=== PATIENT | female | born 1975 | race Caucasian/White ===

== ENCOUNTER 2023-02-01 09:25 | Day surgery (SDC) | payer MEDICARE, MEDICAID, SELFPAY ==
[2023-02-01 09:52] VITALS: BP 152/91; PULSE 92; RESP 20; TEMP 37.2; O2SAT 99
[2023-02-01] MEDS: 0.9 % SODIUM CHLORIDE 500 ML IV (09:59)
[2023-02-01] MEDS: BUPIVACAINE HCL 0.25% PF 25 MG/10 ML VIAL INJ (10:45)
[2023-02-01] MEDS: LIDOCAINE HCL 2% 400 MG/20 ML MDV 15 ML INJ (10:45)
[2023-02-01] MEDS: METHYLPREDNISOLONE ACETATE 40 MG/ML VIAL INJ (10:45)
[2023-02-01 11:04] VITALS: BP 123/85; PULSE 86; RESP 16; TEMP 36.1; O2SAT 99
[2023-02-01 11:06] VITALS: BP 137/80; PULSE 82; RESP 16; TEMP 36.1; O2SAT 98
--- NOTE | 2023-02-01 13:09 | W.PM.PROCNOT ---
Date of procedure: 02/01/23 Pre-op diagnosis: Thoracic Spondylosis Post-op diagnosis: same as pre-op Procedure: Right thoracic 7/8, 9/10 Radiofrequency ablation Under fluoroscopic guidance Rhizotomy was created using radio frequency ablation at 80?C for 90 seconds 1 to 2 lesions created at each site. Post lesioning injection of 2 mL each of 0.25% Marcaine and 2% lidocaine with Depo-Medrol 40mg. 0.5 to 1 mL injected at each site IV in place yes/no If Intravenous fluids: NS at KVO Anesthesia local 2% lidocaine for Anesthesia Other: MAC Timeout process compliant After informed consent obtained.Patient brought to the procedure room placed in the prone position skin overlying the area was prepped and draped in a sterile fashion using betadine. 25 gauge needle was used to create a skin wheal over each of the targeted areas utilizing 2% lidocaine. A rhizotomy needle with a 10 mm active tip was inserted over each of the anesthetized areas and directed towards each of the medial branches accomplished under fluoroscopic guidance. after encountering the same we had positive sensory stimulation, negative motor stimulation was noted. lesions were then created. Post lesioning, steroid solution was injected needles removed. Patient was transferred to recovery room in stable condition to be discharged home after meeting criteria. Anesthesia: MAC and Local Surgeon: Lorrie Murphy Condition: stable
== END 2023-02-01 11:23 | disposition home or self-care (01) ==
LOC: SURGOUT 09:26
PROVIDERS: PCP Family Medicine; Visit Provider Anesthesiology Pain Medicine
DX: M47.814 Spondylosis without myelopathy or radiculopathy, thoracic region (principal)
CPT/HCPCS: 64633; 64634; J1030; J2704

== ENCOUNTER 2023-02-15 11:07 | Day surgery (SDC) | payer MEDICARE, MEDICAID, SELFPAY ==
[2023-02-15 11:43] VITALS: BP 151/94; PULSE 87; RESP 16; TEMP 36.8; O2SAT 99
[2023-02-15] MEDS: 0.9 % SODIUM CHLORIDE 500 ML 50 ML IV (11:55)
[2023-02-15] MEDS: LIDOCAINE HCL 2% 400 MG/20 ML MDV 15 ML INJ (12:41)
[2023-02-15] MEDS: BUPIVACAINE HCL 0.25% PF 25 MG/10 ML VIAL INJ (12:41)
[2023-02-15] MEDS: METHYLPREDNISOLONE ACETATE 40 MG/ML VIAL INJ (12:42)
[2023-02-15 12:52] VITALS: BP 128/73; PULSE 80; RESP 17; TEMP 36.4; O2SAT 99
--- NOTE | 2023-02-15 12:52 | W.PM.PROCNOT ---
Date of procedure: 02/15/23 Pre-op diagnosis: Thoracic Spondylosis Post-op diagnosis: same as pre-op Procedure: Left Thoracic 7,8 and 9,10 Radiofrequency ablation Under fluoroscopic guidance Rhizotomy was created using radio frequency ablation at 80?C for 90 seconds 1 to 2 lesions created at each site. Post lesioning injection of 2 mL each of 0.25% Marcaine and 2% lidocaine with Depo-Medrol 40mg. 0.5 to 1 mL injected at each site IV in place yes If Intravenous fluids: NS at KVO Anesthesia local 2% lidocaine for Anesthesia Other: MAC Timeout process compliant After informed consent obtained.Patient brought to the procedure room placed in the prone position skin overlying the area was prepped and draped in a sterile fashion using betadine. 25 gauge needle was used to create a skin wheal over each of the targeted areas utilizing 2% lidocaine. A rhizotomy needle with a 10 mm active tip was inserted over each of the anesthetized areas and directed towards each of the medial branches accomplished under fluoroscopic guidance. after encountering the same we had positive sensory stimulation, negative motor stimulation was noted. lesions were then created. Post lesioning, steroid solution was injected needles removed. Patient was transferred to recovery room in stable condition to be discharged home after meeting criteria. Anesthesia: MAC Surgeon: Lorrie Murphy Condition: stable
[2023-02-15 12:55] VITALS: BP 125/79; PULSE 81; RESP 16; TEMP 36.4; O2SAT 99
== END 2023-02-15 13:17 | disposition home or self-care (01) ==
LOC: SURGOUT 11:08
PROVIDERS: PCP Family Medicine; Visit Provider Anesthesiology Pain Medicine
DX: M47.814 Spondylosis without myelopathy or radiculopathy, thoracic region (principal)
CPT/HCPCS: 64633; 64634; J1030; J2704

== ENCOUNTER 2023-03-09 13:13 | Outpatient (OUT) | payer MEDICARE, MEDICAID, SELFPAY ==
--- NOTE | 2023-03-09 13:47 | P.CN_ITS ---
Consult Note: HPI Data of Consult Requesting Physician: Brielle Dominguez NP Primary Care Provider: Non-Staff Physician, MD Consult Narrative Reason for consult: f/u Narrative: Lupe Pickard a pleasant 47 year old female presents for evaluation and management of chronic back pain. Patient recently underwent right and left T7-8 T9-10 RFA with 50% pain relief and functional improvement. Patient continues to have back pain and pressure, no numbness tingling or weakness. Patient recently started on lexapro through psychiatrist. Patient has been taking baclofen 10mg bid prn without relief. cc:: CC: Brielle Dominguez NP Review of Systems ROS Status of ROS 10 or more systems reviewed and unremarkable except as noted in history and below Musculoskeletal Reports: back pain PFSH PFSH Medical History Constipation ?K59.00 - Constipation, unspecified (ICD-10) Fibromyalgia ?M79.7 - Fibromyalgia (ICD-10) IBS (irritable bowel syndrome) ?K58.9 - Irritable bowel syndrome without diarrhea (ICD-10) Osteoarthritis ?M19.90 - Unspecified osteoarthritis, unspecified site (ICD-10) Surgical History History of hysterectomy ?Z90.710 - Acquired absence of both cervix and uterus (ICD-10) History of thyroidectomy ?E89.0 - Postprocedural hypothyroidism (ICD-10) Meds Home Medications and Allergies Home Medications Medication Instructions Recorded Confirmed Type cholecalciferol (vitamin D3) 50 50 mcg PO DAILY 12/30/22 02/15/23 History mcg (2,000 unit) capsule (Vitamin D3) levothyroxine 112 mcg tablet 112 mcg PO DAILY 12/30/22 02/15/23 History liothyronine 5 mcg tablet 10 mcg PO DAILY 12/30/22 02/15/23 History lubiprostone 24 mcg capsule 24 mcg PO DAILY 12/30/22 02/15/23 History magnesium oxide 400 mg (241.3 mg 400 mg PO DAILY 12/30/22 02/15/23 History magnesium) tablet melatonin 10 mg tablet 10 mg PO DAILY 12/30/22 02/15/23 History multivitamin (Daily Multi-Vitamin 1 tab PO DAILY 08/03/23 09/19/23 History tablet) diltiazem HCl 180 mg 240 mg PO Q24H 02/01/23 02/15/23 History capsule,extended release 24 hr hydrocodone 5 mg-acetaminophen 325 1 tab PO BID PRN pain #60 tabs 03/09/23 Rx mg tablet methocarbamol 500 mg tablet 500 mg PO BID #60 tabs 03/09/23 Rx Allergies Allergy/AdvReac Type Severity Reaction Status Date / Time No Known Drug Allergies Allergy Verified 02/15/23 11:50 Exam Constitutional Documenting provider has reviewed patient's vital signs: yes Common normals: no apparent distress, oriented x3, healthy appearing, alert and well nourished General appearance: cooperative HENMT Common normals: normocephalic, hearing grossly normal bilaterally and moist oral mucous membranes Head and scalp: normocephalic Eye Common normals: PERRL Pupil: PERRL Neck & C-Spine Common normals: full ROM General: normal visual inspection Chest Common normals: inspection of chest normal Respiratory Common normals: normal respiratory effort, no retractions and no use of accessory muscles Back & Pelvis Thoracic spine/upper back: ROM limited, pain with ROM and paraspinal muscle tenderness Lumbar spine/lower back: ROM limited, pain with ROM, paraspinal muscle tendern ess and straight leg raise negative bilaterally Extremity Common normals: normal to inspection and full ROM Neuro Common normals: oriented x3, CN's II-XII intact bilaterally, moves all extremities, no focal motor deficits, no sensory deficits noted and deep tendon reflexes 2+ bilaterally Sensorium/orientation: alert Motor exam: strength 5/5 throughout and no movement abnormalities noted Psych Common normals: mental status grossly normal, thought process normal, cooperative, affect normal, speech normal and activity/motor behavior normal Speech: normal speech Thought process: normal thought process Assessment and Plan Assessment and Plan (1) Thoracic spondylosis: Assessment and Plan: right and left T 7-8 T9-10 RFA 50% pain relief and functional improvement ongoing (2) Muscle spasm: (3) Chronic, continuous use of opioids: Assessment and Plan: I feel these medications are improving the patient's quality of life and allow them to tolerate activities of daily living as well as participate in recreational activity.? The patient does not report intolerable side effects. The patient is NOT opioid naive and non-pharmacologic and non-opioid treatment has failed to significantly relieve the patient's pain and improve functionality. The patient has a diagnosis that is related to a somatic or visceral pain etiology. ? ?? I reviewed with the patient the potential risks and side effects with the use of? opioid medications including but not limited to respiratory depression,? sedation, and even . I verified the patient has access to naloxone should? these effects occur. I advised the patient to avoid the use of any other? sedation substances including alcohol, THC, and benzodiazepines while? taking opioid medications due to the risk of compounding side effects and? detrimental outcomes. I reviewed the CLINICAL EXERCISE SPECIALIST, pain treatment agreement, urine? drug screen, and opioid start talking forms. The patient was advised to let? their family know they had Naloxone in case they would need to administer? the medication.? Plan stop tramadol start hydrocodone-acetaminophen 5mg BID PRN naloxone discussed and prescribed stop baclofen start robaxin 500mg BID muscle spasms continue f/u with psychiatrist for anxiety f/u 1 month
== END 2023-03-09 13:14 | disposition home or self-care (01) ==
LOC: PM 13:13
PROVIDERS: Visit Provider Nurse Practitioner
DX: M47.816 Spondylosis without myelopathy or radiculopathy, lumbar region (principal); M62.838 Other muscle spasm; Z79.899 Other long term (current) drug therapy
CPT/HCPCS: G0463

== ENCOUNTER 2023-04-06 13:16 | Outpatient (OUT) | payer MEDICARE, MEDICAID, SELFPAY ==
--- NOTE | 2023-04-06 13:52 | P.CN_ITS ---
Consult Note: HPI Data of Consult Patient: known to practice within the last 3 years Requesting Physician: Brielle Dominguez NP Primary Care Provider: Non-Staff Physician, MD Consult Narrative Reason for consult: f/u Narrative: Lupe Pickard a pleasant 47 year old female presents for evaluation and management of mid back pain, today rating pain 4/10. Patient reports continued improvement in pain after thermal RFA, now would say 75% pain relief still worse on the right side with pain and spasming. patient has benefitted from norco 5/325 BID PRN for moderate to severe pain, responds well to baclofen 10mg BID PRN muscle spasms. cc:: CC: Brielle Dominguez NP Review of Systems ROS Status of ROS 10 or more systems reviewed and unremarkable except as noted in history and below Musculoskeletal Reports: back pain PFSH PFSH Medical History Constipation ?K59.00 - Constipation, unspecified (ICD-10) Fibromyalgia ?M79.7 - Fibromyalgia (ICD-10) IBS (irritable bowel syndrome) ?K58.9 - Irritable bowel syndrome without diarrhea (ICD-10) Osteoarthritis ?M19.90 - Unspecified osteoarthritis, unspecified site (ICD-10) Surgical History History of hysterectomy ?Z90.710 - Acquired absence of both cervix and uterus (ICD-10) History of thyroidectomy ?E89.0 - Postprocedural hypothyroidism (ICD-10) Meds Home Medications and Allergies Home Medications Medication Instructions Recorded Confirmed Type cholecalciferol (vitamin D3) 50 50 mcg PO DAILY 12/30/22 02/15/23 History mcg (2,000 unit) capsule (Vitamin D3) levothyroxine 112 mcg tablet 112 mcg PO DAILY 12/30/22 02/15/23 History liothyronine 5 mcg tablet 10 mcg PO DAILY 12/30/22 02/15/23 History lubiprostone 24 mcg capsule 24 mcg PO DAILY 12/30/22 02/15/23 History magnesium oxide 400 mg (241.3 mg 400 mg PO DAILY 12/30/22 02/15/23 History magnesium) tablet melatonin 10 mg tablet 10 mg PO DAILY 12/30/22 02/15/23 History multivitamin (Daily Multi-Vitamin 1 tab PO DAILY 12/30/22 02/15/23 History tablet) diltiazem HCl 180 mg 240 mg PO Q24H 02/01/23 02/15/23 History capsule,extended release 24 hr hydrocodone 5 mg-acetaminophen 325 1 tab PO BID PRN pain #60 tabs 03/09/23 Rx mg tablet methocarbamol 500 mg tablet 500 mg PO BID #60 tabs 03/09/23 Rx Allergies Allergy/AdvReac Type Severity Reaction Status Date / Time No Known Drug Allergies Allergy Verified 02/15/23 11:50 Exam Constitutional Documenting provider has reviewed patient's vital signs: yes Common normals: no apparent distress, oriented x3, healthy appearing, alert and well nourished General appearance: cooperative Nutritional appearance: overweight HENMT Common normals: normocephalic, hearing grossly normal bilaterally and moist oral mucous membranes Head and scalp: normocephalic Eye Common normals: PERRL Pupil: PERRL Neck & C-Spine Common normals: full ROM General: normal visual inspection Chest Common normals: inspection of chest normal Respiratory Common normals: normal respiratory effort, no retractions and no use of accessory muscles Back & Pelvis Thoracic spine/upper back: ROM limited, pain with ROM and paraspinal muscle tenderness Lumbar spine/lower back: ROM limited, pain with ROM, paraspinal muscle tenderness and straight leg raise negative bilaterally Extremity Common normals: normal to inspection and full ROM Neuro Common normals: oriented x3, CN's II-XII intact bilaterally, moves all extremities, no focal motor deficits, no sensory deficits noted and deep tendon reflexes 2+ bilaterally Sensorium/orientation: alert Motor exam: strength 5/5 throughout and no movement abnormalities noted Psych Common normals: mental status grossly normal, thought process normal, cooperative, affect normal, speech normal and activity/motor behavior normal Speech: normal speech Thought process: normal thought process Results Additional Findings Additional findings: I have checked an [place] report on this patient today and there are no aberrancies noted in the prescribing history.?? A drug screen was completed and reviewed within the last year, and if there has not been a drug screen completed we ordered one today to monitor higher risk, state monitored pain medication use. As part of providing excellent, safe, comprehensive care, the following was completed at our patient's visit: 1. A medication reconciliation and review to ensure accurate knowledge of current/active medications, including asking our patients to inform us about any [id number] medications or herbal remedies/nutritional supplements/alternative remedies. 2. A review to specifically ensure our patients have had annual screening for: elevated body mass index (BMI), tobacco use, screening for depression, and screening for unhealthy alcohol use. When screening is concerning, patients are provided with education and the specific recommendation to discuss the concerning health issue and treatment options with their primary care provider. Assessment and Plan Assessment and Plan (1) Thoracic spondylosis: (2) Muscle spasm: (3) Chronic, continuous use of opioids: Assessment and Plan: I have refilled the patient's opioid prescriptions at the above noted dose and schedule.? I feel these medications are improving the patient's quality of life and allow them to tolerate activities of daily living as well as participate in recreational activity.? The patient does not report intolerable side effects. The patient is NOT opioid naive and non-pharmacologic and non-opioid treatment has failed to significantly relieve the patient's pain and improve functionality. The patient has a diagnosis that is related to a somatic or visceral pain etiology. ? ?? I reviewed with the patient the potential risks and side effects with the use of? opioid medications including but not limited to respiratory depression,? sedation, and even . I verified the patient has access to naloxone should? these effects occur. I advised the patient to avoid the use of any other? sedation substances including alcohol, THC, and benzodiazepines while? taking opioid medications due to the risk of compounding side effects and? detrimental outcomes. I reviewed the [employer]COMING [employer]PECTOR, pain treatment agreement, urine? drug screen, and opioid start talking forms. The patient was advised to let? their family know they had Naloxone in case they would need to administer? the medication.? ?? A drug screen was completed within the last year, and no aberrancies were noted regarding their use of controlled substances. The patient understands they are subject to the terms and conditions of the pain contract that they have signed. ? ?? I have checked an [place] report on this patient today and there are no aberrancies noted in the prescribing history.? (4) Obesity: Assessment and Plan: The patient was counseled that proper dietary changes and consistent participation in a home exercise plan can lead to weight loss. Weight loss can help to improve functionality in patients with chronic pain.? Plan patient now reporting therapeutic thermal ablataion to thoracic spine has helped with 75% of her pain. Would like to decrease muscle relaxant use and opiod use. Stop robaxin, continue baclofen 10mg BID PRN Muscle spasms to wean as tolerated continue norco 5-325mg bid prn moderate to severe pain, fill 60 tablets per month this time then decrease each fill by 5 tablets, can wean off sooner if patient is tolerating well f/u 3 months
--- OUTSIDE RECORDS SUMMARY | 2023-05-17 15:17 | XMS_ITS | CCD ---
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 Name Role Phone Donya Billings Primary Care Provider [phone] Oscar Reed Unavailable DO Donya Billings Primary Care Provider MARCELLUS Marr Attending Provider [phone] MD Phillip Benjamin Attending Provider DO Steve Coronel Emergency Provider [phone] Oliver Mario Unavailable Donya Billings Unavailable Unavailable Unavailable Unavailable Unavailable DO Donya Billings Primary Care Provider MD Phillip Benjamin Attending Provider DO Steve Coronel Emergency Provider MD Kenyetta Dove Attending Provider Unavailable Primary Care Provider Unavailabl DO Donya Mejia Primary Care Provider Javad Leach Attending Provider [phone] PROVIDER, UNKNOWN Admitting Unavailable PROVIDER, UNKNOWN Attending Unavailable JAVAD LEACH Referring Unavailable PROVIDER, UNKNOWN Admitting Unavailable PROVIDER, UNKNOWN Attending Unavailable ERNIE ROPER Referring Unavailable ANNALEE ., DR ZHANE Ashraf Admitting Unavailable ANNALEE ., DR ZHANE Ashraf Attending Unavailable AWA, DR DONYA Ashraf Primary Care Unavailable ANNALEE Champion, DR ZHANE Ashraf Consulting Unavailable HERIBERTO GONSALES Consulting Unavailable ANNALEE ., DR ZHANE Ashraf Admitting Unavailable ANNALEE Champion, DR ZHANE Ashraf Attending Unavailable AWA, DR DONYA Ashraf Primary Care Unavailable MARR ., BHAVNA Consulting Unavailable MANTILLA ., DR ZHANE Ashraf Admitting Unavailable MANTILLA ., DR ZHANE Ashraf Attending Unavailable AWA, DR DONYA Ashraf Primary Care Unavailable MANTILLA ., DR ZHANE Ashraf Consulting Unavailable TERRISHEYLA Consulting Unavailable MANTILLA ., DR ZHANE Ashraf Admitting Unavailable MANTILLA ., DR ZHANE Ashraf Attending Unavailable AWA, DR DONYA Ashraf Primary Care Unavailable MANTILLA ., DR ZHANE Ashraf Consulting Unavailable MARR ., BHAVNA Consulting Unavailable MANTILLA ., DR ZHANE Ashraf Admitting Unavailable MANTILLA ., DR ZHANE Ashraf Attending Unavailable AWA, DR DONYA Ashraf Primary Care Unavailable MARR ., BHAVNA Consulting Unavailable MANTILLA ., DR ZHANE Ashraf Admitting Unavailable MANTILLA ., DR ZHANE Ashraf Attending Unavailable AWA, DR DONYA Ashraf Primary Care Unavailable MARR ., BHAVNA Consulting Unavailable AWA, DR DONYA Ashraf Primary Care Unavailable HALKER ., EMERITA Admitting Unavailable HALKER ., EMERITA Attending Unavailable HALKER ., EMERITA Consulting Unavailable MANTILLA ., DR ZHANE Ashraf Admitting Unavailable MANTILLA ., DR ZHANE Ashraf Attending Unavailable AWA, DR DONYA Ashraf Primary Care Unavailable MARR ., BHAVNA Consulting Unavailable Awa, Dr. Donya Wray [facility] Benjamin, Dr. Koehler Attending Unavaila ble Awa, Dr. Donya Wray [facility] Reynatnprasanth Benjamin, Dr. Koehler Attending Unavaila ble Lavonne, Dr. Koehler Attending Unavaila ble Awa, Dr. Doyna Wray [facility] Gaurav Benjamin, Dr. Koehler Referring Unavaila ble Lavonne, Dr. Koehler Referring Unavaila ble Awa, Dr. Donya Wray [facility] Gaurav Benjamin, Dr. Koehler Attending Unavaila ble Awa, Dr. Donya Wray [facility] Gaurav Benjamin, Dr. Koehler Referring Unavaila ble Awa, Dr. Donya Wray [facility] Gaurav Benjamin, Dr. Koehler Attending Unavaila ble Awa, Dr. Donya Wray [facility] Gaurav Benjamin, Dr. Koehler Attending Unavaila ble TrabDr. Phillip banerjee Referring Unavaila ble DO Awa Donya S Primary Care Provider DO Yogi Mcgraw Emergency Provider Gaurav simeon NO FAMILY, PHYSICIAN Primary Care Provider UnaBHAVIN Sheriff Emergency Provider MD Amanda Montiel Attending Provider Samantha AVALOS, DO Diony Arias Primary Care Provider DO Mariya Kumari Emergency Provider MD Franklyn Madera Attending Provider [phone] MD Phillip Benjamin Other Provider [phone] Beny Alvarez Unavailable [phone] DO Yogi Mcgraw Emergency Provider Unavai MD Kenyetta Tong Attending Provider Samantha AVALOS, DO Diony Arias Other Provider MARCELLUS Mcintosh Attending Provider [phone] NO FAMILY, PHYSICIAN Primary Care Provider UnaMD Beny Lara Attending Provider MAXIMILIANO Aguirre Other Provider Steve Coronel Attending Unavailable Steve Coronel Admitting Unavailable Awa, Donya S Primary Care Unavailable Awa, Donya S Primary Care Unavailable Magalys Carlos Attending Unavailable Magalys Carlos Admitting Unavailable Awa, Donya S Primary Care Unavailable Yogi Mcgraw Admitting Unavailable Yogi Mcgraw Attending Unavailable Josué Napier Attending Unavailable Josué Napier Admitting Unavailable NO FAMILY, PHYSICIAN Primary Care Unavailable Croshayy AVALOS, Diony Arias Primary Care Unavailable Franklyn Madera Attending Unavailable Franklyn Madera Admitting Unavailable Phillip Benjamin Consulting Unavailable Kenyetta Dove Attending Unavailable Kenyetta Dove Admitting Unavailable Cromley II, Diony Arias Primary Care Unavailable Cromley BAILEY, Diony Arias Primary Care Unavailable Cromlrubin AVALOS, Diony Arias Consulting Unavailable Radha Mcintosh Attending Unavailable Radha Mcintosh Admitting Unavailable Awa, Donya S Primary Care Unavailable Bhavna Marr Attending Unavailable Bhavna Marr Admitting Unavailable Phillip Benjamin Admitting Unavailable Phillip Benjamin Attending Unavailable Donya Billings Primary Care Unavailable Donya Billings Primary Care Unavailable DerrellKenyetta joseph Admitting Unavailable DerrellNaveed josephd Attending Unavailable Donya Billings Primary Care Unavailable Javad Leach Attending Unavailable Javad Leach Admitting Unavailable Mariya Kumari Attending Unavailable Cromlrubin AVALOS, Diony Arias Primary Care Unavailable Mariya Kumari F Admitting Unavailable Amanda Montiel Attending Unavailable NO FAMILY, PHYSICIAN Primary Care Unavailable Amanda Montiel Admitting Unavailable Samantha AVALOS, Diony Arias Primary Care Unavailable Becky Aguirre Consulting Unavail able Beny Alvarez Admitting UnavailBeny Mahajan Attending Unavailabl e Samantha AVALOS, Diony Arias Primary Care Unavailable Yogi Mcgraw Attending Unavailable Yogi Mcgraw Admitting Unavailable STANG, WELDER GUN Roula L Admitting Unavailable STANG, Roula L Attending Unavailable Christiano Solis Attending Unavailable DO Diony Singh Referring Unavailable WilliamsonKilo mehta Attending Unavailable Donya BILLINGS Attending Unavailable DO Diony Singh Attending Unavailable AnastasiamleyDO Diony Attending Unavailable CromleyDO Diony Attending Unavailable STANG, Roula L Admitting Unavailable STANG, Roula L Attending Unavailable NONE, XXXX Referring Unavailable STANG, Roula L Admitting Unavailable STANG, Roula L Attending Unavailable Franklyn MADERA Attending Unavailable Franklyn MADERA Admitting Unavailable DO Diony Singh Referring Unavailable NONE, XXXX Referring Unavailable STANG, Roula L Admitting Unavailable STANG, Roula L Attending Unavailable Franklyn MADERA Attending Unavailable Franklyn MADERA Admitting Unavailable NONE, XXXX Referring Unavailable STANG, Roula L Admitting Unavailable NONE, XXXX Referring Unavailable STANG, Roula L Attending Unavailable Donya OZUNA Referring Unavailable Donya OZUNA Attending Unavailable Donya OZUNA Admitting Unavailable BECKY AGUIRRE Attending Unavailabl e Donya BILLINGS Attending Unavailable DO Diony Singh Attending Unavailable TAVO HARRIS Attending Unavailable Donya BILLINGS Attending Unavailable Donya BILLINGS Attending Unavailable Jorge OCONNOR Attending Unavailable Donya OZUNA Referring Unavailable BHAVIN TREJO Attending UnavailDonya Bates Attending Unavailable Roula SAEED Admitting Unavailable Roula SAEED Referring Unavailable Roula SAEED Attending Unavailable Allergies Allergy Classification Reported Allergen(s) Allergy Type Date of Onset Reaction(s) Facility (1 source) Latex; Translations: [Latex] Propensity to adverse reactions (disorder) 7 [facility] (1 source) venlafaxine; Translations: [Effexor] Drug Allergy [facility] Medications Current Medications Medication Drug Class(es) Dates Sig (Normalized) Sig (Original) acetaminophen 500 mg oral tablet (9 sources) Start: 09-20-2022 take 1000 mg by mouth twice daily Acetaminophen Active 1000 MG PO Twice daily September 20, 2022 12:00am Start: 09-20-2022 Acetaminophen (Tylenol Ex Str Rapid Release) 500 mg Tablet Active 1000 MG PO Twice daily September 20, 2022 12:00am Tylenol bid Acti ve acetaminophen 325 mg / HYDROcodone bitartrate 5 mg oral tablet (2 sources) Opioid Agonist Start: 03-29-2023 take 1 tablet by mouth twice daily Hydrocodone-Acetaminophen Active 1 TAB PO Twice daily March 29, 2023 12:00am [place] Active [id number] 200 actuat albuterol 0.09 mg/actuat metered dose inhaler (1 source) beta2-Adrenergic Agonist Start: 04-28-2022 take 2 puff(s) by inhalation every four hours as needed Albuterol Sulfate HFA 108 (90 Base) MCG/ACT 2 puffs as needed Inhalation every 4 hrs Mar, Active Aspir-81 (2 sources) Aspir-81 Active aspirin 81 mg chewable tablet (1 source) Platelet Aggregation Inhibitor, Nonsteroidal Anti-inflammatory Drug Start: 03-29-2023 take 81 mg by mouth once daily Aspirin Active 81 MG PO Daily March 29, 2023 12:00am baclofen 10 mg oral tablet (20 sources) gamma-Aminobutyric Acid-ergic Agonist Start: 09-20-2022 take 10 mg by mouth once daily Baclofen Active 10 MG PO Daily September 20, 2022 12:00am Start: 09-23-2021 take 1 tablet by christina th twice daily Baclofen 10 MG Oral Tablet TAKE 1 TABLET TWICE DAILY. Quantity: 0 Refills: 0 Ordered: 23-Sep-2021 DO Start : 23-Sep-2021 Active Start: 09-23-2021 take 1 tablet by christina th once daily at bedtime Baclofen 20 MG Oral Tablet TAKE 1 TABLET BY MOUTH EVERYDAY AT BEDTIME Quantity: 90 Refills: 0 Ordered: 23-Sep-2021 DO Start : 23-Sep-2021 Active Baclofen Active benzonatate 100 mg oral capsule (1 source) Non-narcotic Antitussive Start: 04-28-2022 take 1 capsule by mouth every eight hours Benzonatate 100 MG 1 capsule as needed Orally Three times a day for 10 days Mar, Active busPIRone hydrochloride 5 mg oral tablet (3 sources) take 1 tablet by mouth every twelve hours busPIRone HCl 5 MG 1 tablet Orally Twice a day Active Calcium (10 sources) Phosphate Binder, Calcium CALCIUM ORAL Calcium + D Active 0 Active Calcium + D Acti ve calcium carbonate 1250 mg / cholecalciferol 200 unt oral tablet (5 sources) Vitamin D Start: 07-18-2018 take 1 tablet by mouth twice daily Calcium Carbonate-Vitamin D3 (Os-Nirmal 500 + D3) 500 mg(1,250mg) -200 unit tablet Active 1 TAB PO Twice daily July 18, 2018 1:00am cholecalciferol 0.05 mg oral capsule (20 sources) Vitamin D Start: 08-13-2022 Cholecalcifero l (vitamin D3) 50 MCG (2000 UT) CAPS capsule Take by mouth daily. 0 08/13/2022 Active Start: 07-18-2018 take 09693 [IU] by m outh every week Cholecalciferol (Vitamin D3) Active 30626 UNIT PO every week July 18, 2018 1:00am take 1 capsule by mo uth once daily Vitamin D3 1.25 MG (16115 UT) Oral Capsule TAKE 1 CAPSULE Daily Quantity: 0 Refills: 0 Ordered: 28-Jul-2022 DO Active 24 hr dilTIAZem hydrochloride 240 mg extended release oral capsule (3 sources) Calcium Channel Shorty Start: 03-29-2023 take 240 mg by mouth once daily Diltiazem Hcl Active 240 MG PO Daily March 29, 2023 12:00am dilTIAZem HCl 24 0mg Active escitalopram 5 mg oral tablet (2 sources) Serotonin Reuptake Inhibitor Start: 03-29-2023 take 1 tablet by mouth once daily Escitalopram Oxalate (Lexapro) 5 mg Tablet Active 5 MG PO Daily March 29, 2023 12:00am take 1 tablet by christina th every twenty-four hours Lexapro 5 MG 1 tablet Orally Once a day Active fluconazole 100 mg oral tablet (4 sources) Azole Antifungal Start: 08-10-2022 take 1 tablet by mouth once daily fluconazole (DIFLUCAN) 100 MG tablet Take 100 mg by mouth daily. for 10 days 0 08/10/2022 Active linaclotide 0.145 mg oral capsule (8 sources) Guanylate Cyclase-C Agonist Start: 06-15-2022 Linzess 145 MCG 1 capsule at least 30 minutes before the first meal of the day on an empty stomach Orally Once a day for 30 day(s) May, Active take 1 capsule by mouth once syed ly Linzess 145 MCG Oral Capsule TAKE 1 CAPSULE Daily Quantity: 0 Refills: 0 Ordered: 28-Jul-2022 DO Active liothyronine sodium 0.005 mg oral tablet (20 sources) l-Triiodothyronine Start: 09-20-2022 take 10 mg by mouth once daily Liothyronine Active 10 MCG PO Daily September 20, 2022 12:00am takes 10mg daily Start: 11-26-2021 take 1 tablet by christina th twice daily Liothyronine Sodium 5 MCG Oral Tablet take 1 tablet by mouth twice a day Quantity: 0 Refills: 0 Ordered: 14-Apr-2022 DO Start : 26-Nov-2021 Active take 1 tablet by christina th every twenty-four hours Liothyronine Sodium 50 MCG 1 tablet on an empty stomach Orally Once a day Active lubiprostone (12 sources) Chloride Channel Activator Start: 09-20-2022 take 24 ug by mouth once daily Lubiprostone Active 24 MCG PO Daily September 20, 2022 12:00am Start: 09-01-2022 take 1 capsule by mo [facility] twice daily at mealtime Lubiprostone 24 MCG 1 capsule with food and water Orally Twice a day for 30 days Aug, Active take 1 capsule by mo [facility] once daily at mealtime Amitiza 24 MCG 1 capsule with food and water Orally once a day Active Magnesium (12 sources) Start: 07-18-2018 take 400 mg by mouth twice daily Magnesium Active 400 MG PO Twice daily July 18, 2018 1:00am Start: 07-18-2018 take 200 mg by mouth twice syed ly Magnesium Active 200 MG PO Twice daily July 18, 2018 1:00am Start: 07-18-2018 take 200 mg by mouth twice syed ly Magnesium Active 200 MG PO Twice daily July 18, 2018 12:00am melatonin 10 mg oral tablet (14 sources) Start: 07-18-2018 take 10 mg by mouth once daily at bedtime Melatonin Active 10 MG PO Daily at bedtime July 18, 2018 1:00am Melatonin 10 MG as directed Orally Active Multi For Her (6 sources) Multi For Her as directed Orally Active Multiple Vitamin (Multi Vitamin Daily) TABS (4 sources) Multiple Vitamin (Multi Vitamin Daily) TABS Take by mouth. 0 Active Multivitamin (Multiple Vitamins) Tablet (12 sources) Start: 07-18-2018 take 1 tablet by mouth once daily Multivitamin (Multiple Vitamins) Tablet Active 1 TAB PO Daily July 18, 2018 1:00am Start: 07-18-2018 take 1 tablet by christina th once daily Multivitamin (Multiple Vitamins) Tablet Active 1 TAB PO Daily July 18, 2018 12:00am polyethylene glycol 3350 74058 mg powder for oral solution (3 sources) Osmotic Laxative Start: 09-01-2022 take 17 g by mouth once daily Polyethylene Glycol 3350 17 GM/SCOOP 17gm Orally Once a day for 30 days please dispense largest quantity Aug, Active predniSONE 10 mg oral tablet (1 source) Start: 03-27-2023 prednisone 10 mg 5 tablets for 2 days, 4 tablets x2 days, then 3 x2 days, 2 x2 days, 1 x2 days Orally as directed for 10 days Feb, Active temazepam 30 mg oral capsule (20 sources) Benzodiazepine Start: 05-25-2022 take 1 capsule by mouth once daily at bedtime as needed for sleep temazepam (RESTORIL) 30 MG capsule TAKE 1 CAPSULE BY MOUTH ONCE A DAY (AT BEDTIME) NEEDED FOR SLEEP 30 DAY SUPPLY 0 07/27/2022 Active Start: 10-21-2017 End: 09-20-2022 take 2 capsules by mouth once daily at bedtime Temazepam (Restoril) 15 mg Capsule Discontinued 30 MG PO Daily at bedtime October 21, 2017 12:00am September 20, 2022 7:24pm take 1 capsule by mo [facility] every twenty-four hours Restoril 15 MG 1 capsule at bedtime as needed Orally Once a day Not-Taking Temazepam 7.5 MG TAKE 3 CAPSULES BY MOUTH AT BEDTIME NEEDED FOR SLEEP FOR 1 WEEK, 2 CAPS AT BEDTIME FOR 1 WEEK, 1 CAP AT BEDTIME FOR 1 WEEK, 1 CAP AT BEDT Oral for 28 Days Not-Taking Trulance 3 MG (1 source) Start: 05-12-2022 take 1 tablet by christina th once daily Trulance 3 MG 1 tablet Orally Once a day for 90 days Apr, Active Completed/Discontinued Medications Medication Drug Class(es) Dates Sig (Normalized) Sig (Original) ALPRAZolam 0.5 mg oral tablet (20 sources) Benzodiazepine Start: 05-03-2022 End: 03-29-2023 take 0.5 mg by mouth once as needed Alprazolam Discontinued 0.5 MG PO As Directed September 20, 2022 12:00am March 29, 2023 8:34am stated that she takes as needed, maybe once every couple of days. Start: 07-18-2018 End: 09-20-2022 take 0.5 mg by mouth once daily Alprazolam Discontinued 0.5 MG PO Daily July 18, 2018 1:00am September 20, 2022 7:22pm Start: 07-18-2018 take 1 mg by mouth once daily Alprazolam Active 1 MG PO Daily July 18, 2018 1:00am Xanax prn Not-Ta salomon Xanax prn Active Xanax Active amitriptyline hydrochloride 25 mg oral tablet (14 sources) Tricyclic Antidepressant Start: 04-11-2018 End: 09-20-2022 take 75 mg by mouth at bedtime Amitriptyline Discontinued 75 MG PO Bedtime April 11, 2018 1:00am September 20, 2022 7:23pm take 1 tablet by christina every twenty-four hours Amitriptyline HCl 75 MG 1 tablet at bedtime Orally Once a day Active ascorbic acid 1000 mg oral tablet (12 sources) Vitamin C Start: 07-18-2018 End: 09-20-2022 take 1 tablet by mouth once daily in the morning Ascorbic Acid (Vitamin C) (Vitamin C) 1,000 mg Tablet Discontinued 1000 MG PO Every morning July 18, 2018 1:00am September 20, 2022 7:23pm biotin 10 mg oral capsule (12 sources) Start: 07-18-2018 End: 09-20-2022 take 28169 ug by mouth once daily Biotin Discontinued 40219 MCG PO Daily July 18, 2018 1:00am September 20, 2022 7:23pm 24 hr buPROPion hydrochloride 300 mg extended release oral tablet (12 sources) Aminoketone Start: 10-21-2017 End: 09-20-2022 take 300 mg by mouth once daily in the morning Bupropion Hcl Discontinued 300 MG PO Every morning October 21, 2017 12:00am September 20, 2022 7:23pm Calcium Carbonate (5 sources) Oscal 500/200 D- 3 TABS TAKE 1 TABLET DAILY DIRECTED. Quantity: 0 Refills: 0 Ordered: 13-Oct-2022 DO Active Calcium Carbonate-Vitamin D3 (Os-Nirmal 500 + D3) 500 mg(1,250mg) -200 unit tablet (7 sources) Start: 07-18-2018 End: 09-20-2022 take 1 tablet by mouth twice daily Calcium Carbonate-Vitamin D3 (Os-Nirmal 500 + D3) 500 mg(1,250mg) -200 unit tablet Discontinued 1 TAB PO Twice daily July 18, 2018 1:00am September 20, 2022 7:23pm cloNIDine hydrochloride 0.1 mg oral tablet (7 sources) Central alpha-2 Adrenergic Agonist Start: 12-20-2022 End: 03-29-2023 take 0.1 mg by mouth once daily Clonidine Hcl Discontinued 0.1 MG PO Daily December 20, 2022 4:03pm March 29, 2023 8:37am doxycycline hyclate 100 mg oral capsule (2 sources) Tetracycline-class Drug Start: 10-16-2022 take 1 capsule by mouth every twelve hours Doxycycline Hyclate 100 MG 1 capsule Orally Twice a day for 10 day(s) September, Not-Taking ibuprofen 800 mg oral tablet (12 sources) Nonsteroidal Anti-inflammatory Drug Start: 12-15-2018 End: 09-20-2022 take 800 mg by mouth every eight hours Ibuprofen Discontinued 800 MG PO Q8H December 15, 2018 12:00am September 20, 2022 7:23pm levothyroxine sodium 0.112 mg oral tablet (20 sources) l-Thyroxine Start: 11-26-2021 take 1 tablet by mouth once daily Levothyroxine Sodium 112 MCG Oral Tablet TAKE 1 TABLET DAILY. Quantity: 0 Refills: 0 Ordered: 11-Mar-2022 DO Start : 26-Nov-2021 Active Start: 11-26-2021 take 1 tablet by christina th once daily in the morning Synthroid 125 MCG Oral Tablet TAKE 1 TABLET BY MOUTH DAILY IN THE MORNING ON AN EMPTY STOMACH Quantity: 90 Refills: 0 Ordered: 11-Mar-2022 DO Start : 26-Nov-2021 Active Start: 11-22-2018 take 112 ug by mouth once pk y Levothyroxine Active 112 MCG PO Daily November 22, 2018 12:00am Start: 11-22-2018 take 137 ug by mouth once pk y Levothyroxine Active 137 MCG PO Daily November 22, 2018 12:00am Levothyroxine So dium 112 MCG Oral for 90 Days Active take 1 tablet by christina th once daily in the morning Synthroid 175 MCG 1 tablet in the morning on an empty stomach Orally Once a day Active magnesium oxide 400 mg oral tablet (13 sources) Start: 06-04-2022 take 1 tablet by mouth twice daily Magnesium Oxide 400 MG Oral Tablet TAKE 1 TABLET TWICE DAILY. Quantity: 180 Refills: 3 Ordered: 04-Jun-2022 Phillip Benjamin MD Start : 04-Jun-2022 Active Start: 06-04-2022 magnesium oxid e (MAG-OX) 400 MG tablet Take by mouth every 12 (twelve) hours. 0 06/04/2022 Active take 1 tablet by christina th every twenty-four hours Magnesium Oxide 400 MG 1 tablet as needed Orally Once a day Active Melatonin Maximum Strength TABS (7 sources) take 1 tablet by mouth at bedtime Melatonin Maximum Strength TABS TAKE 1 TABLET Bedtime Quantity: 0 Refills: 0 Ordered: 04-Jun-2022 DO Active meloxicam 15 mg oral tablet (12 sources) Nonsteroidal Anti-inflammatory Drug Start: 9 End: 9 take 15 mg by mouth once daily in the morning Meloxicam Discontinued 15 MG PO Every morning July 18, 2018 1:00am August 01, 2018 3:16pm methIMAzole 10 mg oral tablet (20 sources) Thyroid Hormone Synthesis Inhibitor Start: 9 End: 9 take 5 mg by mouth once Methimazole Discontinued 5 MG PO every Tuesday, , Tuesday, and Wednesday July 18, 2018 1:00am August 01, 2018 3:16pm Start: 10-21-2017 End: 08-01-2018 Methimazole (Tapazole) 5 mg Tablet Discontinued 10 MG PO every Tuesday, Tuesday, and Saturday October 21, 2017 12:00am August 01, 2018 3:16pm metoprolol tartrate 25 mg oral tablet (20 sources) beta-Adrenergic Shorty Start: 09-20-2022 End: 03-29-2023 take 25 mg by mouth once daily Metoprolol Tartrate Discontinued 25 MG PO Daily September 20, 2022 12:00am March 29, 2023 8:37am Start: 06-04-2022 metoprolol (TO PROL-XL) 25 mg XL tablet Take by mouth. 0 06/04/2022 Active take 1 tablet by christina th once daily Metoprolol Succinate ER 50 MG Oral Tablet Extended Release 24 Hour TAKE 1 TABLET BY MOUTH EVERY DAY Quantity: 90 Refills: 3 Ordered: 08-Dec-2022 Lavonne PELAYO, Phillip Active increase Multi Vitamin Daily Oral Tablet (1 source) take 1 tablet by mouth once daily Multi Vitamin Daily Oral Tablet TAKE 1 TABLET DAILY. Quantity: 0 Refills: 0 Ordered: 28-Jul-2022 DO Active Multi Vitamin Daily TABS (5 sources) Multi Vitamin Da [place] TABS TAKE 1 TABLET DAILY. Quantity: 0 Refills: 0 Ordered: 28-Jul-2022 DO Active mupirocin 0.02 mg/mg topical ointment (12 sources) RNA Synthetase Inhibitor Antibacterial Start: 12-03-19 End: 12-16-19 Mupirocin Discontinued 1 APPLIC TOPICAL Twice daily 15 December 02, 2018 12:00am December 15, 2018 5:08pm omeprazole 20 mg delayed release oral capsule (12 sources) Proton Pump Inhibitor Start: 04-11-20 End: 08-02-19 take 1 tablet by mouth once daily Omeprazole Discontinued 1 TAB PO Daily April 11, 2018 1:00am August 01, 2018 3:16pm plecanatide 3 mg oral tablet (5 sources) Start: 05-12-20 take 1 tablet by mouth every twenty-four hours Trulance 3 MG 1 tablet Orally Once a day for 90 days Apr, Not-Taking traMADol hydrochloride 50 mg oral tablet (20 sources) Opioid Agonist Start: 09-21-19 End: 03-29-20 take 100 mg by mouth twice daily Tramadol Discontinued 100 MG PO Twice daily September 20, 2022 12:00am March 29, 2023 8:37am Start: 08-12-2022 take 2 tablets by mo [facility] twice daily as needed tramadol (ULTRAM) 50 MG tablet Take 2 tablets by mouth 2 times per day as needed for Spondylosis without myelopathy 0 08/12/2022 Active Start: 10-23-2021 take 1 tablet by christina twice daily traMADol HCl - 100 MG Oral Tablet TAKE 1 TABLET BY MOUTH TWICE A DAY Quantity: 60 Refills: 0 Ordered: 23-Oct-2021 DO Start : 23-Oct-2021 Active take 1 tablet by christina every twenty-four hours traMADol HCl 50 MG 1 tablet as needed Orally Once a day Not-Taking triamcinolone acetonide 40 mg/ml injectable suspension (20 sources) Corticosteroid Start: 03-27-2023 Kenalog-40 Feb, 60 mg Start: 10-19-2018 Kenalog -40 mg September, 40 mg Start: 04-24-2018 Kenalog -40 mg Mar, 40 mg Start: 01-18-2018 Kenalog -40 mg Dec, 40 mg Start: 09-23-2016 Kenalog -40 mg Aug, Problems Active Problems Problem Classification Problem Date Documented Da te Episodic/Chronic Abdominal pain (20 sources) Left upper quadrant pain; Translations: [Left upper quadrant pain] Onset: 3 06-21-2022 Episodic Anxiety disorders (8 sources) Anxiety; Translations: [Anxiety state, unspecified] Onset: 3 Chronic Blindness and vision defects (14 sources) Diplopia; Translations: [Diplopia] Episodic Cardiac dysrhythmias (16 sources) Multiple premature ventricular complexes; Translations: [Other premature beats] Onset: 3 Chronic Complications of surgical procedures or medical care (1 source) Postprocedural hypothyroidism; Translations: [Postprocedural hypothyroidism] Onset: 3 Chronic Complications of surgical procedures or medical care (12 sources) Wound dehiscence; Translations: [Disruption of external operation (surgical) wound, not elsewhere classified, initial encounter] 12-02-2018 Episodic Essential hypertension (11 sources) Hypertensive disorder; Translations: [Essential (primary) hypertension] 12-28-2022 Chronic Gastritis and duodenitis (6 sources) Gastritis; Translations: [Unspecified chronic gastritis without bleeding] Chronic Gastrointestinal hemorrhage (1 source) Melena Episodic Headache; including migraine (6 sources) Headache; Translations: [Headache] 12-30-2022 Episodic Headache; including migraine (1 source) Headache; including migraine; Translations: [Headache, unspecified] Onset: 3 Hypertension with complications and secondary hypertension (6 sources) Hypertensive urgency ; Translations: [Hypertensive urgency] 12-30-2022 Chronic Mood disorders (1 source) Depressive disorder; Translations: [Depression] 01-18-2014 Chronic Nervous system congenital anomalies (7 sources) Congenital anomaly of optic nerve; 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, spinal cord, 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 Nonmalignant breast conditions (6 sources) Large breast; Translations: [Hypertrophy of breast] Episodic Nutritional deficiencies (3 sources) Vitamin D deficiency; Translations: [Unspecified vitamin D deficiency] Chronic Open wounds of extremities (12 sources) Cat bite - wound; Translations: [Open bite of unspecified finger without damage to nail, initial encounter] 12-02-2018 Episodic Osteoarthritis (13 sources) Arthritis; Translations: [Osteoarthritis of hip] 01-18-2014 Chronic Other aftercare (1 source) Other manager intermediate (current) drug therapy; Translations: [Other manager intermediate (current) drug therapy] Onset: 3 Episodic Other connective tissue disease (1 source) Fibromyalgia; Translations: [Fibromyalgia] 01-18-2014 Episodic Other connective tissue disease (7 sources) H/O: arthritis; Translations: [Personal history of arthritis] Episodic Other connective tissue disease (7 sources) H/O: musculoskeletal disease; Translations: [Personal history of other musculoskeletal disorders] Episodic Other connective tissue disease (4 sources) Pain in calf; Translations: [Pain in unspecified lower leg] 01-24-2023 Episodic Other eye disorders (7 sources) Hypertropia of right eye; Translations: [Hypertropia] Episodic Other eye disorders (4 sources) Pain in eye; Translations: [Ocular pain, unspecified eye] 01-24-2023 Episodic Other gastrointestinal disorders (1 source) Irritable bowel syndrome; Translations: [Irritable bowel syndrome] 01-18-2014 Chronic Other gastrointestinal disorders (5 sources) Irritable bowel syndrome characterized by constipation; Translations: [Irritable bowel syndrome with constipation] Chronic Other gastrointestinal disorders (2 sources) Irritable bowel syndrome with constipation Chronic Other gastrointestinal disorders (6 sources) Constipation - functional; Translations: [Other constipation] Episodic Other gastrointestinal disorders (6 sources) Swollen abdomen; Translations: [Abdominal distension (gaseous)] Episodic Other gastrointestinal disorders (7 sources) History of gastritis; Translations: [Personal history of other diseases of digestive system] Episodic Other gastrointestinal disorders (2 sources) Constipation; Translations: [Constipation, unspecified] Episodic Other gastrointestinal disorders (1 source) Abdominal distension (gaseous) Episodic Other gastrointestinal disorders (1 source) Constipation, unspecified Episodic Other lower respiratory disease (9 sources) Dyspnea; Translations: [Shortness of breath] 01-24-2023 Episodic Other nervous system disorders (7 sources) Benign intracranial hypertension; Translations: [Benign intracranial hypertension] Chronic Other nervous system disorders (1 source) Other chronic pain; Translations: [OTHER CHRONIC PAIN] Onset: 2 Chronic Other non-traumatic joint disorders (12 sources) Shoulder pain; Translations: [Pain in unspecified shoulder] 11-19-2019 Episodic Other nutritional; endocrine; and metabolic disorders (7 sources) Body mass index 40+ - severely obese; Translations: [Morbid obesity] Chronic Other nutritional; endocrine; and metabolic disorders (1 source) Obesity, unspecified; Translations: [OBESITY UNSPECIFIED] Onset: 2 Chronic Other nutritional; endocrine; and metabolic disorders (7 sources) Hypomagnesemia; Translations: [Hypomagnesemia] 12-20-2022 Chronic Other nutritional; endocrine; and metabolic disorders (7 sources) History of Graves' disease; Translations: [Personal history of other endocrine, metabolic, and immunity disorders] Episodic Other skin disorders (1 source) Rash and other nonspecific skin eruption Episodic Other upper respiratory infections (1 source) Acute pharyngitis, unspecified Episodic Phlebitis; thrombophlebitis and thromboembolism (12 sources) Phlebitis; Translations: [Phlebitis and thrombophlebitis of unspecified site] 12-15-2018 Episodic Residual codes; unclassified (7 sources) Chronic pain; Translations: [Other chronic pain] Onset: 01-18-2014 Chronic Residual codes; unclassified (12 sources) Peripheral edema; Translations: [Edema, unspecified] 11-19-2019 Episodic Screening and history of mental health and substance abuse codes (14 sources) Ex-smoker; Translations: [Personal history of tobacco use] Episodic Comment on above: quit 01/28/22; Spondylosis; intervertebral disc disorders; other back problems (20 sources) Solitary sacroiliitis; Translations: [Sacroiliitis, not elsewhere classified] Onset: 11-13-2021 Chronic Sprains and strains (12 sources) Sprain of knee; Translations: [Sprain of unspecified site of right knee, initial encounter] Episodic Thyroid disorders (9 sources) Hypothyroidism; Translations: [Unspecified acquired hypothyroidism] Onset: 08-10-2022 01-18-2014 Chronic Unclassified (1 source) LOW BACK PAIN, UNSPECIFIED; Translations: [LOW BACK PAIN, UNSPECIFIED] Onset: 12-10-2021 Unclassified (1 source) Encounter for screening mammogram for malignant neoplasm of breast; Translations: [Encounter for screening mammogram for malignant neoplasm of breast] Onset: 12-29-2022 Past or Other Problems Problem Classification Problem Date Documented Da te Episodic/Chronic Cardiac dysrhythmias (20 sources) Palpitations; Translations: [Palpitations] Onset: 11-25-2022 12-20-2022 Episodic Conditions associated with dizziness or vertigo (8 sources) Lightheadedness; Translations: [Dizziness and giddiness] Onset: 09-20-2022 12-20-2022 Episodic Nonspecific chest pain (19 sources) Chest pain; Translations: [Chest pain, unspecified] Onset: 11-05-2022 11-05-2022 Episodic Other connective tissue disease (4 sources) Other muscle spasm; Translations: [OTHER MUSCLE SPASM] Onset: 01-06-2022 Episodic Residual codes; unclassified (1 source) Family history of malignant neoplasm of breast; Translations: [Family history of malignant neoplasm of breast] Onset: 12-29-2022 Episodic Spondylosis; intervertebral disc disorders; other back problems (17 sources) Neck pain; Translations: [Backache] Onset: 12-10-2021 01-18-2014 Episodic Unclassified (1 source) Cough R05.9 Viral infection (1 source) COVID-19 Results Test Name Value Interpretation Reference Range Tanvir gonzalez [facility] Medicine Office/Clini c Noteon 05-10-2023 Family Medicine Office/Clinic Note Chief Complaint F/U HPI Staff Patient here for 2 month F/U on chronic issues and OMT JERRICA 04/14 History of Present Illness back pain today is 4/10 located in mid-back around bra line described as a constant ache and feels locked up heat/ice improve pain inconsistently worsened by picking up heavy laundry basket, bending forward, washing dishes. stopped taking baclofen - was not working for her - was originally taking BID still takes Tylenol BID and [place] BID - inconsistent benefit - feels her body is getting used to it and it is helping less. still interested in stopping [place] at some point. Waiting for marijuana to become available again. neck pain 7/10 today localized to right side described as constant ache no aggravating or relieving factors. [place]/Tylenol provide inconsistent benefit. helps for a little but does not last thinks it may be her atlas has seen chiropractor in past and was told it was her atlas - has not seen chiropractor in couple months has had issues on and off with neck. Worsened past couple month was having issues before stopping baclofen anxiety is well controlled 100% better than before Lexapro has not used hydroxyzine propranolol has helped with anxiety as well after she takes it, she feels calm and less anxious. Has also helped with controlling physical symptoms of anxiety, such as racing heart. follows maricruz/ Radha Mcintosh, psychiatry - sees about once a month I wonder if I can stop diltiazem; it never did anything for my BP or HR (planning to discuss with cardiology at f/u) takes bupropion 150mg for depression she did not start right away - just started 2 weeks ago wanted to talk with psychiatrist psychiatrist agreed with recommendation does not notice much of a change works fine palpitations have gotten better since starting propranolol Cardizem was not helping takes propranolol at noon and 9PM starts feeling physical symptoms (racing heart, increased BP) around 7PM and occasionally has palpitations palpitations happen more often with activity - occurs a couple times per week. discussed extended release formula with cardiology 30 day event monitor was benign - occasional PVCs propranolol and diltiazem have also improved BP. next cardiology appt in a few weeks. used to take benzo to help with sleep had to stop benzo 6 months ago so she could be prescribed pain medication by pain management has been using melatonin and has been working well only a couple nights a week where she has trouble falling asleep. gets 7-8.5 hours of sleep per night. smokes socially while hanging out with friends a couple cigarettes a few times a month. increased CRP. seeing senior animal trainer next Tuesday colonoscopy done at [facility] on - note unavailable from last note: Fibromyalgia (M79.7: Fibromyalgia) Impression: Chronic Symptoms are improving; could be better Allodynia/hyperalgesia persists; Narcotic medication has been utilized for a long time with this patient; the most effective being methadone. However, she's found it difficult to find someone to fill this particular medication for pain control - only finding providers writing for it for OUD Discussed how she would prefer to avoid opioids all together and I am in support of this Confounding factors include: Poor sleep Depression Anxiety Stress at home I suspect an unrealistic expectation for pain control The patient continues to get tired with normal activities - this has improved with treatment *physical deconditioning may complicate this Plan: Continue current regimen Education regarding fibromyalgia Education on sleep hygiene and the importance of treating sleeping and mood co-morbidities Recommend the patient begin an exercise regimen including aerobic conditioning, stretching and strengthening Patient expresses understanding OMM at f/u F/u 1 month [1] 7. Moderate recurrent major depression (F33.1: Major depressive disorder, recurrent, moderate) Chronic Stable Room for improvement Consistent with meds *noted to have several children with ADHD recommend Driven to Distraction *discussed how ADHD often plays a role in chronic pain disorders and can complicate subjective anxiety No changes today F/u 1 month [2] Review of Systems PHQ Score Initial Depression Screen Score: 1 SCORE Physical Exam Vitals & Measurements HR: 79(Peripheral) BP: 136/88 SpO2: 96% HT: 66 in HT: 167 cm WT: 121.2 kg WT: 266.64 lb BMI: 43.46 General: calm and cooperative. no acute distress Skin: warm and dry. No cyanosis or clubbing. Head: AT, NC. Eye: normal conjunctiva, sclera white. EOMI Cardiovascular: HRRR, no MRG. Respiratory: LCTAB. Respirations non-labored. Not in any respiratory distress. Gastrointestinal: deferred Extremities: no erythema, edema, or lesions Neurological: AOx3. No focal neurologic deficits. Psychiatric: Speech and movement n (more content not included)... Normal [facility] Comment on above: Result Comment: Elec tronically Signed By: Diony Singh DO\.br\Date and Time Signed: 05/10/23 19:24 EST\.br\Electronically Co-Signed By: Charlene Cervantes\.br\Date and Time Co-Signed: 05/10/23 15:17 EST Patient Educationon 05-10-20 Patient Education Orthopedics Chronic Back Pain When back pain lasts longer than 3 months, it is called chronic back pain. Pain may get worse at certain times (flare-ups). There are things you can do at home to manage your pain. Follow these instructions at home: Pay attention to any changes in your symptoms. Take these actions to help with your pain: Managing pain and stiffness ? If told, put ice on the painful area. Your doctor may tell you to use ice for 24?48 hours after the flare-up starts. To do this: ? Put ice in a plastic bag. ? Place a towel between your skin and the bag. ? Leave the ice on for 20 minutes, 2?3 times a day. ? If told, put heat on the painful area. Do this as often as told by your doctor. Use the heat source that your doctor recommends, such as a moist heat pack or a heating pad. ? Place a towel between your skin and the heat source. ? Leave the heat on for 20?30 minutes. ? Take off the heat if your skin turns bright red. This is especially important if you are unable to feel pain, heat, or cold. You may have a greater risk of getting burned. ? Soak in a warm bath. This can help relieve pain. Activity ? Avoid bending and other activities that make pain worse. ? When standing: ? Keep your upper back and neck straight. ? Keep your shoulders pulled back. ? Avoid slouching. ? When sitting: ? Keep your back straight. ? Relax your shoulders. Do not round your shoulders or pull them backward. ? Do not sit or edge cutting machine operator one place for long periods of time. ? Take short rest breaks during the day. Lying down or standing is usually better than sitting. Resting can help relieve pain. ? When sitting or lying down for a long time, do some mild activity or stretching. This will help to prevent stiffness and pain. ? Get regular exercise. Ask your doctor what activities are safe for you. ? Do not lift anything that is heavier than 10 lb (4.5 kg) or the limit that you are told, until your doctor says that it is safe. ? To prevent injury when you lift things: ? Bend your knees. ? Keep the weight close to your body. ? Avoid twisting. ? Sleep on a firm mattress. Try lying on your side with your knees slightly bent. If you lie on your back, put a pillow under your knees. Medicines ? Treatment may include medicines for pain and swelling taken by mouth or put on the skin, prescription pain medicine, or muscle relaxants. ? Take [id number] and prescription medicines only as told by your doctor. ? Ask your doctor if the medicine prescribed to you: ? Requires you to avoid driving or using machinery. ? Can cause trouble pooping (constipation). You may need to take these actions to prevent or treat trouble pooping: ? Drink enough fluid to keep your pee (urine) pale yellow. ? Take mhko-zhe-uvapoux or prescription medicines. ? Eat foods that are high in fiber. These include beans, whole grains, and fresh fruits and vegetables. ? Limit foods that are high in fat and sugars. These include fried or sweet foods. General instructions ? Do not use any products that contain nicotine or tobacco, such as cigarettes, e-cigarettes, and chewing tobacco. If you need help quitting, ask your doctor. ? Keep all follow-up visits as told by your doctor. This is important. Contact a doctor if: ? Your pain does not get better with rest or medicine. ? Your pain gets worse, or you have new pain. ? You have a high fever. ? You lose weight very quickly. ? You have trouble doing your normal activities. Get help right away if: ? One or both of your legs or feet feel weak. ? One or both of your legs or feet lose feeling (have numbness). ? You have trouble controlling when you poop (have a bowel movement) or pee (urinate). ? You have bad back pain and: ? You feel like you may vomit (nauseous), or you vomit. ? You have pain in your belly (abdomen). ? You have shortness of breath. ? You faint. Summary ? When back pain lasts longer than 3 months, it is called chronic back pain. ? Pain may get worse at certain times (flare-ups). ? Use ice and heat as told by your doctor. Your doctor may tell you to use ice after flare-ups. This information is not intended to replace advice given to you by your health care provider. Make sure you discuss any questions you have with your health care provider. Document Revised: 06/25/2020 Document Reviewed: 06/25/2020 [employer] Patient Education ? 2022 [employer] [facility] Family Medicine Office/Clini c Noteon 04-15-2023 Family Medicine Office/Clinic Note Chief Complaint F/U HPI Staff Patient here for 1 month F/U. JERRICA 03/28 Labs 03/29/23 Patient states she is concerned about iron has been taking but not sure of absorbsion, would like recheck History of Present Illness 47 Years old Female here for 1 mo. f/u HPI staff / Chief Complaint confirmed with the patient Interval history: is taking propranolol PRN for anxiety the last few days my BP has been ok and my anxiety has been ok tolerating cardizem hasn't taken propranolol the rash after the event monitor resolved a few days after removing the patches hysterectomy was 6-7 years ago is not a big red meat eater doesn't eat a lot of great leafy vegetables was off the iron supplement for 5 days almost every symptom I've been having lately can be attributed to low iron read Driven to Distraction read about half way through and skimmed the rest I do struggle with starting one task, getting half way through and moving onto something else without realizing it leaving the room for something, and getting to the next room and forgetting why I'm there concentration and focus, going in ten different directions I'm just up in the air about the cardiology thing it's frustrating that I can feel fine all day, and my pain is good and BP is good. then the next day, my BP is bad, i can feel stressed, and don't feel as good. 04/11/23 - cardiology - I[place]onso palpitations and blood pressure control - managed with diltiazem no known CAD, recent negative stress MPI recent event monitor was unremarkable continues to have palpitations --> notes that recently drinking body armour stops her palpitations Palpitations --> continue cardizem and noted to continue propranolol prescribed by her psychiatrist; if she doesn't tolerate that, can increase dose of cardizem HTN - elevated in the office, notes lower BP at home - hadn't started propranolol yet BMI 03/29/23 - message - requesting a less expensive steroid cream ok to use 1% hydrocortisone 03/28/23 - PCP - eBcky Aguirre CNP Rash started 20 days ago while on a 30 day outpatient heart monitor - mainly in the area where the patches were located --> developed a more diffuse rash *also noted to have stopped her iron supplement 4 days prior with no change to the rash seen in [facility] urgent care on 03/27 - rec'd a kenalog shot and prednisone taper. (hasn't started prednisone and kenalog did nothing ) noted that when she changed the pads, her skin was blistering in the area where the conduction gel touched Acute - atopic dermatitis - rx for hydrocortisone cream Autoimmune disorder - sending results to rheum --> has pending appt WILL w reflex, CRP, folate, lyme, protein electrophoresis, Sed rate, b12 03/28/23 - message - cardiology patient mentions skin break down cardiology recommends stopping 30 day monitor, ten days early 03/15/23 - message - through portal re: feeling better after drinking body armour order for b12, folate and Vit D 03/14/23 - PCP - new to me palpitations - following with cardiology; pending results from 30 day monitor anxiety - not well controlled; following with psychiatry - broached the subject of medical marijuana being helpful in the past insomnia - behavioral techniques fibromyalgia - on chronic narcotics with incomplete control of symptoms MDD - has several patients with ADHD --> recommend Driven to Distraction Future Appointments [facility] Appt. Date: 05/03/2023 1:00 PM Scheduled Provider: Diony Singh DO [address] [place], [id number] Phone: -- Fax: -- [facility] [place] Appt. Date: 11/16/2023 1:00 PM Scheduled Provider: [facility] [place] [employer] [facility] Phone: -- Fax: -- Review of Systems PHQ Score Initial Depression Screen Score: 1 SCORE Physical Exam Vitals & Measurements HR: 90(Peripheral) BP: 134/80 SpO2: 98% HT: 66 in HT: 167 cm WT: 123.9 kg WT: 272.58 lb BMI: 44.43 PHYSICAL EXAM Constitutional: Vital signs reviewed; LUPE PICKARD is well nourished, no acute distress - obese Head: Atraumatic, normocephalic Eye: EOMI, normal conjunctiva ENT: Moist oral mucosa, external inspection of ears and nose is unremarkable Neck: Trachea is midline, no tenderness Lungs: Clear to auscultation, non-labored respiration - expansion is symmetric Heart: Normal rate and rhythm, normal peripheral perfusion Lymph: Deferred Abd: Deferred : Deferred MSK: Normal gait and station Skin: Warm, dry Neurologic: Awake, alert and oriented, speech is normal, no focal deficits, CN II-XII grossly intact Psychiatric: Cooperative, pleasant - fastidious and perseverate - insight and judgement are adequate Assessment/Plan 1. Moderate recurrent major depression (F33.1: Major depressive disorder, recurrent, moderate) Chronic Stable Room for improvement Consistent with meds Begin bupropion 150mg XL daily - discussed rationale for increasing to 300mg daily after 1 month f/u 1 month (more content not included)... Normal [facility] Comment on above: Result Comment: Elec tronically Signed By: Diony Singh DO\.br\Date and Time Signed: 04/15/23 13:41 EST Consent for Treatmenton 03-30 Consent for Treatment [id number] Normal [facility] Heart and Vascular Office/Cl inic Noteon 04-11-2023 Heart and Vascular Office/Clinic Note Chief Complaint follow up after testingn History of Present Illness Lupe Pickard is a 48-year-old female patient of Dr. Madera with past medical story positive for hypertension, fibromyalgia, GERD, reformed smoker. She has been following closely with our service for palpitations and blood pressure. She is currently on diltiazem for such. She has no known CAD, fairly recent negative stress MPI. Echocardiogram with structurally normal heart. She is here today in follow-up after recent event monitor which was benign. She continues to have palpitations. More recently she has noted that drinking body armor ceases her palpitations. Review of Systems Constitutional: no fever, no chills, no weakness, no fatigue Respiratory: no shortness of breath, no cough, no orthopnea, no wheezing Cardiovascular: no chest pain, + palpitations, no edema Neuro:no dizziness no light headed no syncope Additional ROS info: Except as noted in the above Review of Systems and in the History of Present Illness all other systems have been reviewed and are negative or noncontributory. Physical Exam Vitals & Measurements HR: 88(Peripheral) BP: 152/86 SpO2: 97% HT: 66 in HT: 167.5 cm WT: 122 kg WT: 268.4 lb BMI: 43.48 General: alert, no acute distress Neck: Supple, noJVD nocarotid bruit Cardiovascular: regular rate and rhythm, no murmur normal peripheral perfusion Respiratory: Lungs CTA, respirations non labored Extremities:no edema Neurological: oriented x 4, LOC appropriate for age, sensation equal & normal bilaterally, speech normal Skin: Warm, dry, intact- no rash or concerning lesions Cardiac Diagnostics (01/24/2023 14:18 EDT NM Myocardial Spect Multi Stress) FINDINGS: Review of raw images demonstrates some soft tissue attenuation. Uptake of the tracer was generally homogeneous with no identifiable ischemia or infarction. The TID ratio was 0.80. The ejection fraction was 70%. End diastolic volume 95 mL. CONCLUSIONS: Negative treadmill nuclear stress test. Overall low risk stress. [1] [1] Event Monitor 04/06/23 PROCEDURE DETAILS: The patient was recorded for 21 days from 03/08/2023 to 03/29/2023. The patient's predominant rhythm was sinus. Minimum heart rate 64 beats per minute, average heart rate 83 beats per minute, maximum heart rate 105 beats per minute. There were multiple symptom events that were not specified but were sinus rhythm. There was occasional premature ventricular contraction. CONCLUSIONS: Relatively benign appearing event monitor. Occasional premature ventricular contraction. Clinical correlation suggested. READ BY: Owen Schmidt M.D. [2] Assessment/Plan 1. Palpitations (R00.2: Palpitations) Palpitations with recent event monitor benign, occasional PVCs which we know this. She had a recent stress MPI which was negative for ischemia, low risk. She had recent echocardiogram with structurally normal heart. She will continue diltiazem to 40 mg daily. Her psychiatry specialist has prescribed her propranolol 20 mg twice daily. I have advised her to start this to see how this helps with her palpitations. If she does not tolerate propranolol, we can up-titrate diltiazem to 360 mg to address #1 and #2. 2. Hypertension (I10: Essential (primary) hypertension) Blood pressure is elevated in the office today. She reports lower readings at home. I reviewed her blood pressure log and blood pressure overall has been controlled until a few weeks ago. She was started on propranolol 20 mg twice daily per psych team. I think it be reasonable to start this medication. She can start on a daily basis 3. Obesity (E66.9: Obesity, unspecified) The standard range for ages 18 and older is >=18.5 and < 25 kg/m2. Your BMI today was above this range, this falls in the overweight to obese category and there are medical benefits to weight loss. We can offer counselling, referral, and/or medical support in addressing this problem. Your BMI and weight management will be followed at subsequent visits. Portions of this record may have been created with voice recognition artificial intelligence software, specifically PhoneAndPhone, Time Warden and or GetO2. Substitutions may have occurred due to the inherent limitations of voice recognition and artificial intelligence software. Follow-up With When Contact Information SANTY PELAYO, Franklyn Arias Within 3 months [address] [place] [address]- [phone] Additional Instructions: Problem List/Past Medical History Ongoing Anxiety Atopic dermatitis Autoimmune disorder BMI 40.0-44.9, adult Butterfly rash Chronic bilateral low back pain Chronic insomnia Diffuse arthralgia Establishing care with new doctor, encounter for Exercise counseling Fibromyalgia GERD (gastroesophageal reflux disease) Medication management Moderate recurrent major depression Morbid obesity Nutritional counseling Other specified hypothyroidism Overactive bladder Palpitati (more content not included)... Normal [facility] Comment on above: Result Comment: Elec tronically Signed By: Roula SAEED CNP\.br\Date and Time Signed: 04/11/23 11:37 EST\.br\Electronically Co-Signed By: Brayan PELAYO, Owen Brown\.br\Date and Time Co-Signed: 04/24/23 21:03 EST Outside Recordson 04-11-2023 Outside Records [id number]#1.00TIFF Normal [facility] Physician Orderon 04-11-2023 Physician Order [id number]#1.00TIFF Normal [facility] Event Monitoron 04-07-2023 Event Monitor [id number]#1.0 0TIFF Normal [facility] Lab Reportson 03-31-2023 Lab Reports [id number]#1.00T IFF Normal [facility] WILL with Reflexon 03-29-2023 WILL with Reflex Negative Normal Negative [facility] Comment on above: Result Comment: Perf ormed at: CB - [facility] [place] [address] Cotton Broker: Ramirez Ca PhD, Phone: [phone] Performed By: #### F OL, B12, HSCRP, ESR ####[facility] [address]#### WILL CHOICE, RA, LYME AB wRFX, SPE ####[facility] , C reactive protein [Mass/vol ume] in Serum or Plasma by High sensitivity methodOrdered By: Becky Aguirre on 03-29-2023 CRP High sensitivity method [Mass/Vol] 4.6 mg/L 0.0-0.9 [facility] Comment on above: Cardiovascular Risk Classification (AHA/CDC)hsCRP < 1.0 mg/l low relative risk for CVDhsCRP 1.0-3.0 mg/l average relative risk for CVDhsCRP > 3.0 mg/l high relative risk for CVDhsCRP > 7.5 mg/l active inflammation*Two results two weeks apart and averaged provide a morestable estimate of hsCRP level.*hsCRP levels > 7.5 mg/l may suggest infection that canlimit the use of this marker for estimation of CVD risk. Erythrocyte Sedimentation Ra frank 03-29-2023 ESR (Bld) [Velocity] 14 mm/h Normal 0-19 [facility] Comment on above: Result Comment: PERF ORMED BY: [facility] [address] [facility] [id number] PATHOLOGIST DIESEL AUTOMOTIVE TECHNICIAN WENDY CLARK M.D. Performed By: #### F OL, B12, HSCRP, ESR ####[place] [address] [place] [id number] [facility]#### WILL CHOICE, RA, LYME AB wRFX, SPE ####[facility] , Erythrocyte sedimentation ra te by Photometric methodOrdered By: Becky Aguirre on 03-29-2023 ESR Photometric method (Bld) [Velocity] 14 mm/hr 0-19 [facility] Folateon 03-29-2023 Folate 32.0 ng/mL Normal >5.[address] [facility] Comment on above: Result Comment: Janel te reference range: >5.9 ng/ml The WHO technical consultation on folate and vitamin b12 deficiencies has determined that folate concentrations less than 4 ng/ml are considered deficient. PERFORMED BY: [facility] [address] [place] [place] [address] PATHOLOGIST DIESEL AUTOMOTIVE TECHNICIAN WENDY CLARK M.D. Performed By: #### F OL, B12, HSCRP, ESR ####[place] [address] [place] [id number] [facility]#### WILL CHOICE, RA, LYME AB wRFX, SPE ####[facility] , High Sensitive CRPon 023 High Sensitive CRP 4.6 mg/L High 0.0-0.[address] [facility] Comment on above: Result Comment: Card iovascular Risk Classification (AHA/CDC) hsCRP < 1.0 mg/l low relative risk for CVD hsCRP 1.0-3.0 mg/l average relative risk for CVD hsCRP > 3.0 mg/l high relative risk for CVD hsCRP > 7.5 mg/l active inflammation* Two results two weeks apart and averaged provide a more stable estimate of hsCRP level. *hsCRP levels > 7.5 mg/l may suggest infection that can limit the use of this marker for estimation of CVD risk. PERFORMED BY: [facility] [address] [place] [address] PATHOLOGIST DIESEL AUTOMOTIVE TECHNICIAN WENDY CLARK M.D. Performed By: #### F OL, B12, HSCRP, ESR ####[facility] [address] [place] [address] [place]#### WILL CHOICE, RA, LYME AB wRFX, SPE ####[facility] , Eriberto 03-29-2023 L Specimen: [id number] Received: 03/29/23 Status: ALEXA Bauer Num: [id number] Spec Type: Surgical Subm Dr: Beny Alvarez MD Tissues: A Duodenum - Biopsy (DUODENAL BX) Procedures: HE/2, Gross/Micro L4 Age/ Patient Sex Location Account Attending Physician Lupe Pickard Loren 47/F [id number] Beny Alvarez MD SPEC NUM: [id number] RECD: 03/29/23 STATUS: ALEXA BAUER NUM: [id number] NARINDER: 03/29/23 DR: Beny Alvarez MD ENTERED: 03/29/23 [facility] DR: SNEHAL TYPE: Surgical DEPT: S ORDERED: HE/2, Gross/Micro L4 ORDERED: HE/2, Gross/Micro L4 Pathological Diagnosis Duodenum, biopsy: - Duodenal mucosa within normal limits Clinical Information in, constipation, blood in stool, rule out sprue Gross Description Received in formalin labeled with the patient's name, date of and duodenal biopsy is one cantrell tissue measuring 0.4 x 0.3 x 0.2 cm. Entirely submitted in one cassette labeled A1. Microscopic Description Two H E slides reviewed. The microscopic examination confirms the diagnosis. CPT Codes 90074 Specimen: [id number] Received: 03/29/23 Status: ALEXA Bauer Num: [id number] Spec Type: Surgical Subm Dr: Beny Alvarez MD Tissues: A Duodenum - Biopsy (DUODENAL BX) Procedures: HE/2, Gross/Micro L4 Patient: Lupe Pickard Loren [id number] (Continued) Signed (signature on file) Antoine Sigala MD 03/30/23 1258 Normal [facility] Lab Reportson 03-29-2023 Lab Reports [id number]#1.00T IFF Normal [facility] Lab Reports [id number]#1.00T IFF Normal [facility] Lyme, Total Ab with Reflexon 03-29-2023 Lyme Total Antibody Negative Normal Negative [facility] Comment on above: Result Comment: Lyme antibodies not detected. Reflex testing is not indicated. No laboratory evidence of infection with B. burgdorferi (Lyme disease). Negative results may occur in patients recently infected (less than or equal to 14 days) with B. burgdorferi. If recent infection is suspected, repeat testing on a new sample collected in 7 to 14 days is recommended. Performed at: - [facility], [place], [place] [id number] Cotton Broker: Ramirez Ca PhD, Phone: [phone] PERFORMED BY: [facility] [place] [address] PATHOLOGIST DIESEL AUTOMOTIVE TECHNICIAN WENDY CLARK M.D. Performed By: #### F OL, B12, HSCRP, ESR ####[place] [address] [address]#### WILL CHOICE, RA, LYME AB wRFX, SPE ####[facility] , Outside Colonoscopyon 2022 Outside Colonoscopy [id number] Normal [facility] Outside Hospital Correspo ndenceon 03-29-2023 Outside Hospital Correspondence [id number]#1.00TIFF Normal [facility] Protein Electrophoresis, Ser umon 03-29-2023 Albumin [Mass/Vol] 3.5 g/dL Normal 2.9-4.[address] [facility] Comment on above: Performed By: #### F OL, B12, HSCRP, ESR ####[place] [address] [address]#### WILL CHOICE, RA, LYME AB wRFX, SPE ####[facility] , Albumin/Globulin [Mass ratio] 1.1 {ratio} Normal 0.7-1 .7 [facility] Comment on above: Performed By: #### F OL, B12, HSCRP, ESR ####[place] [address] [place] [address] [place]#### WILL CHOICE, RA, LYME AB wRFX, SPE ####[facility] , Bhhur-2-Whcrzaww 0.3 g/dL Normal 0.0-0.4 [facility] Comment on above: Performed By: #### F OL, B12, HSCRP, ESR ####[address]#### WILL CHOICE, RA, LYME AB wRFX, SPE ####[facility] , Ihdrd-4-Ergfifuc 0.8 g/dL Normal 0.4-1.0 [facility] Comment on above: Performed By: #### F OL, B12, HSCRP, ESR ####[place] [address] [place]#### WILL CHOICE, RA, LYME AB wRFX, SPE ####[facility] , Beta Globulin 1.0 g/dL Normal 0.7-1.3 [facility] Comment on above: Performed By: #### F OL, B12, HSCRP, ESR ####[address]#### WILL CHOICE, RA, LYME AB wRFX, SPE ####[facility] , Gamma Globulin 1.1 g/dL Normal 0.4-1.8 [facility] Comment on above: Performed By: #### F OL, B12, HSCRP, ESR ####[place] [address] [place]#### WILL CHOICE, RA, LYME AB wRFX, SPE ####[facility] , Globulin (S) [Mass/Vol] 3.2 g/dL Normal 2.2-3.9 [facility] Comment on above: Performed By: #### F OL, B12, HSCRP, ESR ####[place] [address] [place]#### WILL CHOICE, RA, LYME AB wRFX, SPE ####[facility] , M-Chacorta Not Observed Normal Not Observed [facility] Comment on above: Performed By: #### F OL, B12, HSCRP, ESR ####[place] [address] [place]#### WILL CHOICE, RA, LYME AB wRFX, SPE ####[facility] , Protein [Mass/Vol] 6.7 g/dL Normal 6.0-8.[address] [facility] Comment on above: Performed By: #### F OL, B12, HSCRP, ESR ####[place] [address] [address]#### WILL CHOICE, RA, LYME AB wRFX, SPE ####[facility] , SPE-Note Normal . [facility] Comment on above: Result Comment: Prot ein electrophoresis scan will follow via computer, mail, or metal roaster delivery. Performed at: [address] [id number] Cotton Broker: Ramirez Ca PhD, Phone: [phone] Performed By: #### F OL, B12, HSCRP, ESR ####[address]#### WILL CHOICE, RA, LYME AB wRFX, SPE ####[facility] , Rheumatoid Factoron 03-29-20 Rheumatoid Factor 10.8 Normal <14.0 [facility] Comment on above: Result Comment: Perf ormed at: [address] [id number] Cotton Broker: Ramirez Ca PhD, Phone: [phone] Performed By: #### F OL, B12, HSCRP, ESR ####[address]#### WILL CHOICE, RA, LYME AB wRFX, SPE ####[facility] , Vitamin B12on 03-29-2023 Cobalamin (Vitamin B12) [Mass/Vol] 464 pg/mL Normal 180-914 [facility] Comment on above: Performed By: #### F OL, B12, HSCRP, ESR ####[address]#### WILL CHOICE, RA, LYME AB wRFX, SPE ####[facility] , Vitamin B12 ser/plasOrdered By: Becky Aguirre on 03-29-2023 Cobalamin (Vitamin B12) [Mass/Vol] 464 pg/mL 180-914 [facility] Family Medicine Office/Clini c Noteon 03-28-2023 Family Medicine Office/Clinic Note Chief Complaint Pt in office for rash all over body. HPI Staff Patient in office for rash. Duration: Started when she was placed on cardiac event monitor 28 days ago and it started around the patches. She then started Iron last Tuesday and it has worsened since and is now all over the body. D/C iron due to rash and itching. Seen yesterday has Rx prednisone and suggested to be seen here today. Did not start prednisone yet. New or Recurrent: new Location: diffuse Description: red Rash symptoms: burning and pruiritic Itching all over the body. Health Maintenance Flu shot: Declined Colon screenin03/29/2023 Pap: Unsure Hx of Hyserectomy Mammo: Diabetes screening: not done Wellness: Due Recent labs: done at [facility] results scanned in chart History of Present Illness Lupe is a 47 year old female who presents with a rash. Wide spread rash: started 20 days ago when she was on a 30 day outpatient heart monitor. Rash is generally concentrated to the areas where the patches were located on the chest and abdomen. However, she is now noticing a rash on her wrist under her watch band which she has never had before. Additionally, she started an iron supplement last week and believes this could be a contributing factor. She stopped the iron supplement 4 days ago with no change to the rash. Rash itches, but whole body is itching as well. Went to [facility] yesterday and received a Kenalog shot, and prednisone taper. She has not yet started the prednisone, and the kenalog did nothing . Of note, when she was changing the EKG pads, she noticed where the conduction gel was, her skin would be blistered and draining clear fluid. Cardiac events: has been seeing Dr. Madera, cardiology for work up of palpitations. During an episode heart is bounding, missing beats/flutter, anxiety. Autoimmune disorder: Lupus previously suspected according to patient. She had an WILL which was elevated in the past. Nothing recent. Has a pending appointment with rheumatology. Patient requesting initial labs for review by rheumatology - will order and forward to rheumatology. Review of Systems PHQ Score Initial Depression Screen Score: 0 Constitutional: no fever, no chills, no sweats, no weakness Skin: no Jaundice, moderate rash, no lesions, nopetechiae ENMT: no ear pain, no sore throat, no congestion, no hoarseness Respiratory: no shortness of breath, no cough, no orthopnea, no wheezing Cardiovascular: no chest pain, no palpitations, no edema Gastrointestinal: no nausea, no vomiting, no diarrhea, no GI bleeding Genitourinary: no dysuria, no hematuria, no discharge, no pain Musculoskeletal: no back pain, no trauma Neurologic: no headache, no dizziness, no numbness, no weakness Psychiatric: no sleeping problems, no irritability, no mood swings/depression. Heme/Lymph: no bleeding tendency, no bruising tendency, no petechiae, no swollen nodes Allergy/Immunologic: no seasonal allergies, no food allergies, no recurrent infections, no impaired immunity Additional ROS info: Except as noted in the above Review of Systems and in the History of Present Illness all other systems have been reviewed and are negative or noncontributory. Physical Exam Vitals & Measurements T: 36.7 ?C(Temporal Artery) HR: 76(Peripheral) RR: 16 BP: 136/72 SpO2: 99% HT: 66 in HT: 167.5 cm WT: 123.9 kg WT: 272.58 lb BMI: 44.16 General: alert, no acute distress Skin: warm, dry Head: no trauma, normocephalic Neck: Trachea midline, no adenopathy, no tenderness Eye: normal conjunctiva, sclera clear ENMT: TM's clear, oral mucosa moist, no pharyngeal erythema or exudate Cardiovascular: regular rate and rhythm, normal peripheral perfusion Respiratory: Lungs CTA, respirations non labored Chest wall: no deformity. Gastrointestinal: soft, non distended, no tenderness, no guarding. Back: No tenderness, Normal ROM, Normal alignment. Extremities: no deformity, no trauma Neurological: oriented x 4, LOC appropriate for age, CN II-XII intact, motor strength equal & normal bilaterally, sensation equal & normal bilaterally, speech normal Psychiatric: cooperative, affect appropriate for age, normal judgement, normal psychiatric thoughts. Integument: Rash: Diagnostically Unknown Rash Present Diagnostically Unknown Rash Location Diffuse Diagnostically Unknown Rash Underneath Breasts NONE Diagnostically Unknown Rash Axillae NONE Diagnostically Unknown Rash Inguinal Region NONE Diagnostically Unknown Rash Arms/Wrists/Hands Left Wrist Diagnostically Unknown Rash Legs/Ankles/Feet NONE Diagnostically Unknown Rash Color Red Diagnostically Unknown Rash Character Excoriated Skin Thickening Not Present Induration Not Present Subcutaneous Nodules Not Present Assessment/Plan 1. Atopic dermatitis (L20.9: Atopic dermatitis, unspecified) Instructed to take prednisone as prescribed per UC yesterday Instructed to take OTC benadryl prn New order for hydrocortisone cream (more content not included)... 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 This condition may increase your risk for: ? Frequent and unusual infections. ? Serious complications, including some types of cancer. ? Certain diseases in which the body's defense system (immune system) attacks normal body tissues (autoimmune disease). What are the causes? The cause of this condition is not known. It is likely caused by both environmental and genetic factors. What increases the risk? This condition is more likely to develop in: ? People who are 15?25 years old. ? People who have an autoimmune disease. ? People who have a family history of CVID. What are the signs or symptoms? Signs and symptoms can include frequent and long-term (chronic) infections of the upper respiratory system, lungs, and digestive system. These infections may not respond well to antibiotic medicines. Symptoms can vary from person to person, and they may include: ? Chronic cough. ? Coughing up blood. ? Difficulty breathing. ? Sore and inflamed sinuses (sinusitis). ? Ear infections. ? Weakness, fatigue, and easy bruising or bleeding. These symptoms may mean that CVID is causing you to have low amounts of red and white blood cells and clotting cells (platelets). Other symptoms may include: ? Bloating or pain in the abdomen. ? Nausea or vomiting. ? Diarrhea. ? Weight loss. CVID may cause other health problems, including arthritis, the inability to absorb nutrients from your diet (malabsorption), skin changes, or some types of cancer. Symptoms of these conditions may include: ? Joint pain and swelling. ? Weight loss. ? Swollen glands (lymphadenopathy). ? Enlarged liver or spleen. ? Lumps under the skin (granulomas). ? Patchy changes in skin color. ? Patches of hair loss (alopecia). How is this diagnosed? This condition may be diagnosed based on: ? Your symptoms, such as whether you often have unusual infections. ? Your medical history, including any family history of CVID. ? A physical exam. This may include checking for skin changes, alopecia, lymphadenopathy, and enlargement of your spleen or liver. ? Blood tests. ? A test in which you are given a vaccine to see if your body's immune system responds to it. If you have CVID, your body may not respond to the vaccine. You may also have other tests, including: ? Imaging tests of your lungs or sinuses. ? Spirometry testing. This measures: ? How much air you breathe in (inhale) and breathe out (exhale) during a breath. ? How long each breath takes. ? A procedure to remove a piece of an enlarged lymph node to be examined under a microscope (lymph node biopsy). Lymph nodes are collections of tissue that filter bacteria, viruses, and waste from the bloodstream. They are part of the immune system. How is this treated? This condition is treated with immunoglobulin therapy. This involves giving you donated antibodies (antibody transfusions). Transfusions are given through an IV inserted in a vein (intravenous infusion) or an injection given under the skin (subcutaneous injection). Treatment may also include: ? Antibiotic medicines to treat specific infections. ? Antihistamines, NSAIDs, or steroids to block side effects of transfusions. If you develop health problems such as autoimmune disease, arthritis, skin diseases, or cancer, you may need more treatment. Follow these instructions at home: Medicines ? Take elur-wbm-fsffwsk and prescription medicines only as told by your health care provider. ? If you were prescribed an antibiotic, take it as told by your health care provider. Do not stop using the antibiotic even if your condition improves. General instructions ? Learn as much as you can about CVID, and work closely with your health care providers to manage your condition. ? If you have digestive symptoms, ask your health care provider if you should follow a certain diet. ? Do not drink water from a source that may not be clean. ? Do not use any products that contain nicotine or tobacco. These products include cigarettes, chewing tobacco, and vaping devices, such as e-cigarettes. If you need help quitting, ask your health care provider. ? Keep all follow-up visits. This is important. You may need to have your blood tested often to monitor your disease. Where to find more information ? National [place] of [employer]ious [employer]: www.niaid.nih.gov Contact a health care provider if: ? You have a fever. ? You have any symptoms of infection such as chills, worsening cough, or severe earache. ? You make high-pitched whistling sounds when you breathe, most often when you breathe out (wheeze). ? You have a reaction to your immunoglobulin therapy. ? You bruise or bleed easily. ? You have nausea o (more content not included)... Normal [facility] Lab Reportson 03-25-2023 Lab Reports [id number] FF Normal [facility] Lab Reportson 03-18-2023 Lab Reports [id number] IFF Normal [facility] Lab Reports [id number] IFF Normal [facility] Alanine aminotransferase [En zymatic activity/volume] in Serum or PlasmaOrdered By: Radha Mcintosh on 03-17-2023 ALT [Catalytic activity/Vol] 13 U/L 7-52 [facility] Albumin [Mass/volume] in Ser um or Plasma by Bromocresol green (BCG) dye binding methoOrdered By: Radha Mcintosh on 03-17-2023 Albumin BCG dye [Mass/Vol] 4.2 g/dL 3.5-5.7 [facility] Alkaline phosphatase [Enzyma tic activity/volume] in Serum or PlasmaOrdered By: Radha Mcintosh on 03-17-2023 ALP [Catalytic activity/Vol] 66 U/L 34-104 [facility] Aspartate aminotransferase [ Enzymatic activity/volume] in Serum or PlasmaOrdered By: Radha Mcintosh on 03-17-2023 AST [Catalytic activity/Vol] 11 U/L 13-39 [facility] Basophils Auto (Bld) [#/Vol] Ordered By: Radha Mcintosh on 03-17-2023 Basophils (Bld) [#/Vol] 0.1 10*3/uL 0.0-0.2 [facility] Basophils/100 WBC Auto (Bld) Ordered By: Radha Mcintosh on 03-17-2023 Basophils/100 WBC (Bld) 0.8 % . [facility] Bilirubin.total [Mass/volume ] in Serum or PlasmaOrdered By: Radha Mcintosh on 03-17-2023 Bilirubin [Mass/Vol] 0.3 mg/dL 0.3-1.0 [facility] Calciumon 03-17-2023 Calcium [Mass/Vol] 9.0 mg/dL Normal 8.6-10.[address] [facility] Comment on above: Performed By: #### P HOS, FE, [id number], LILLIA[place], PTH, [place] ####[facility] [id number] [address] Calcium [Mass/volume] in Ser um or PlasmaOrdered By: Diony Singh on 03-17-2023 Calcium [Mass/Vol] 9.0 mg/dL 8.6-10.[address] [facility] Carbon dioxide, total [Moles /volume] in Serum or PlasmaOrdered By: Radha Mcintosh on 03-17-2023 CO2 [Moles/Vol] 27.5 mmol/L 21.0-31.0 [facility] Chloride [Moles/volume] in S zakia or PlasmaOrdered By: Radha Mcintosh on 03-17-2023 Chloride [Moles/Vol] 104 mmol/L 98-107 [facility] Complete Blood Count Auto Di ffon 03-17-2023 Basophils (Bld) [#/Vol] 0.1 10*3/uL Normal 0.0-0.2 [facility] Comment on above: Order Comment: Reaso n for Exam Generalized Anxiety Disorder (SANDRA);Medication management Result Comment: PERF ORMED BY: [facility] [address] [place] [address] PATHOLOGIST DIESEL AUTOMOTIVE TECHNICIAN WENDY CLARK M.D. Performed By: #### V ITD+D2+D3 ####[facility] ,#### CMP, CBC ####[address] Basophils/100 WBC (Bld) 0.8 % Normal . [facility] Comment on above: Order Comment: Reaso n for Exam Generalized Anxiety Disorder (SANDRA);Medication management Performed By: #### V ITD+D2+D3 ####[facility] ,#### CMP, CBC ####[address] Eosinophils (Bld) [#/Vol] 0.1 10*3/uL Normal 0.0-0.45 [facility] Comment on above: Order Comment: Reaso n for Exam Generalized Anxiety Disorder (SANDRA);Medication management Performed By: #### V ITD+D2+D3 ####[facility] ,#### CMP, CBC ####[address] Eosinophils/100 WBC (Bld) 1.5 % Normal . [facility] Comment on above: Order Comment: Reaso n for Exam Generalized Anxiety Disorder (SANDRA);Medication management Performed By: #### V ITD+D2+D3 ####[facility] ,#### CMP, CBC ####[address] Erythrocyte distribution wid th (RBC) [Ratio] 15.2 % Normal 11.9-15.3 [facility] Comment on above: Order Comment: Reaso n for Exam Generalized Anxiety Disorder (SANDRA);Medication management Performed By: #### V ITD+D2+D3 ####[facility] ,#### CMP, CBC ####[address] Hematocrit (Bld) [Volume fraction] 39.4 % Normal 34.0-46.4 [facility] Comment on above: Order Comment: Reaso n for Exam Generalized Anxiety Disorder (SANDRA);Medication management Performed By: #### V ITD+D2+D3 ####[facility] ,#### CMP, CBC ####[address] [address] [facility] Hemoglobin (Bld) [Mass/Vol] 13.1 g/dL Normal 11.8-15. 4 [facility] Comment on above: Order Comment: Reaso n for Exam Generalized Anxiety Disorder (SANDRA);Medication management Performed By: #### V ITD+D2+D3 ####[facility] ,#### CMP, CBC ####[address] Lymphocytes (Bld) [#/Vol] 2.6 10*3/uL Normal 1.00-4.8 [facility] Comment on above: Order Comment: Reaso n for Exam Generalized Anxiety Disorder (SANDRA);Medication management Performed By: #### V ITD+D2+D3 ####[facility] ,#### CMP, CBC ####[place] [address] [place] Lymphocytes/100 WBC (Bld) 29.4 % Normal . [facility] Comment on above: Order Comment: Reaso n for Exam Generalized Anxiety Disorder (SANDRA);Medication management Performed By: #### V ITD+D2+D3 ####[facility] ,#### CMP, CBC ####[place] [id number] [facility] MCH (RBC) [Entitic mass] 29.0 pg Normal 24.7-34.3 [facility] Comment on above: Order Comment: Reaso n for Exam Generalized Anxiety Disorder (SANDRA);Medication management Performed By: #### V ITD+D2+D3 ####[facility] ,#### CMP, CBC ####[address] [address] [facility] MCV (RBC) [Entitic vol] 87.0 fL Normal 80-100 [facility] Comment on above: Order Comment: Reaso n for Exam Generalized Anxiety Disorder (SANDRA);Medication management Performed By: #### V ITD+D2+D3 ####[facility] ,#### CMP, CBC ####[address] Mean Corpuscular HGB Conc 33.3 g/dL Normal 32.0-35.0 [facility] Comment on above: Order Comment: Reaso n for Exam Generalized Anxiety Disorder (SANDRA);Medication management Performed By: #### V ITD+D2+D3 ####[facility] ,#### CMP, CBC ####[address] Monocytes (Bld) [#/Vol] 0.5 10*3/uL Normal 0.0-0.8 [facility] Comment on above: Order Comment: Reaso n for Exam Generalized Anxiety Disorder (SANDRA);Medication management Performed By: #### V ITD+D2+D3 ####[facility] ,#### CMP, CBC ####[address] Monocytes/100 WBC (Bld) 5.5 % Normal . [facility] Comment on above: Order Comment: Reaso n for Exam Generalized Anxiety Disorder (SANDRA);Medication management Performed By: #### V ITD+D2+D3 ####[facility] ,#### CMP, CBC ####[place] [address] [place] Neutrophils (Bld) [#/Vol] 5.5 10*3/uL Normal 1.8-7.7 [facility] Comment on above: Order Comment: Reaso n for Exam Generalized Anxiety Disorder (SANDRA);Medication management Performed By: #### V ITD+D2+D3 ####[facility] ,#### CMP, CBC ####[address] Neutrophils/100 WBC (Bld) 62.8 % Normal . [facility] Comment on above: Order Comment: Reaso n for Exam Generalized Anxiety Disorder (SANDRA);Medication management Performed By: #### V ITD+D2+D3 ####[facility] ,#### CMP, CBC ####[address] NRBC% 0.1 /100{WBC} Normal 0-0.5 [facility] Comment on above: Order Comment: Reaso n for Exam Generalized Anxiety Disorder (SANDRA);Medication management Performed By: #### V ITD+D2+D3 ####[facility] ,#### CMP, CBC ####[address] Platelet mean volume (Bld) [Entitic vol] 7.6 fL Normal 6.3-10.7 [facility] Comment on above: Order Comment: Reaso n for Exam Generalized Anxiety Disorder (SANDRA);Medication management Performed By: #### V ITD+D2+D3 ####[facility] ,#### CMP, CBC ####[address] Platelets (Bld) [#/Vol] 370 10*3/uL Normal 150-450 [facility] Comment on above: Order Comment: Reaso n for Exam Generalized Anxiety Disorder (SANDRA);Medication management Performed By: #### V ITD+D2+D3 ####[facility] ,#### CMP, CBC ####[place] [address] [place] RBC (Bld) [#/Vol] 4.53 10*6/uL Normal 3.60-5.[address] [facility] Comment on above: Order Comment: Reaso n for Exam Generalized Anxiety Disorder (SANDRA);Medication management Performed By: #### V ITD+D2+D3 ####[facility] ,#### CMP, CBC ####[address] [address] [facility] WBC (Bld) [#/Vol] 8.8 10*3/uL Normal 3.8-11.[address] [facility] Comment on above: Order Comment: Reaso n for Exam Generalized Anxiety Disorder (SANDRA);Medication management Performed By: #### V ITD+D2+D3 ####[facility] ,#### CMP, CBC ####[place] [id number] [facility] Comprehensive Metabolic Pane eriberto 03-17-2023 Albumin [Mass/Vol] 4.2 g/dL Normal 3.5-5.[address] [facility] Comment on above: Order Comment: Reaso n for Exam Generalized Anxiety Disorder (SANDRA);Medication management Performed By: #### V ITD+D2+D3 ####[facility] ,#### CMP, CBC ####[address] Albumin/Globulin [Mass ratio] 1.5 {ratio} Normal [facility] Comment on above: Order Comment: Reaso n for Exam Generalized Anxiety Disorder (SANDRA);Medication management Performed By: #### V ITD+D2+D3 ####[facility] ,#### CMP, CBC ####[place] [id number] [facility] ALP [Catalytic activity/Vol] 66 U/L Normal 34-104 [facility] Comment on above: Order Comment: Reaso n for Exam Generalized Anxiety Disorder (SANDRA);Medication management Result Comment: PERF ORMED BY: [facility] [address] [place] [address] PATHOLOGIST DIESEL AUTOMOTIVE TECHNICIAN WENDY CLARK M.D. Performed By: #### V ITD+D2+D3 ####[facility] ,#### CMP, CBC ####[place] [id number] [facility] ALT [Catalytic activity/Vol] 13 U/L Normal 7-52 [facility] Comment on above: Order Comment: Reaso n for Exam Generalized Anxiety Disorder (SANDRA);Medication management Performed By: #### V ITD+D2+D3 ####[facility] ,#### CMP, CBC ####[address] [address] [facility] Anion gap [Moles/Vol] 11.6 mmol/L Normal 6.0-15.0 [facility] Comment on above: Order Comment: Reaso n for Exam Generalized Anxiety Disorder (SANDRA);Medication management Performed By: #### V ITD+D2+D3 ####[facility] ,#### CMP, CBC ####[place] [id number] [facility] AST [Catalytic activity/Vol] 11 U/L Low 13-39 [facility] Comment on above: Order Comment: Reaso n for Exam Generalized Anxiety Disorder (SANDRA);Medication management Performed By: #### V ITD+D2+D3 ####[facility] ,#### CMP, CBC ####[place] [id number] [facility] Bilirubin [Mass/Vol] 0.3 mg/dL Normal 0.3-1.0 [facility] Comment on above: Order Comment: Reaso n for Exam Generalized Anxiety Disorder (SANDRA);Medication management Performed By: #### V ITD+D2+D3 ####[facility] ,#### CMP, CBC ####[address] [address] [facility] Calcium [Mass/Vol] 8.9 mg/dL Normal 8.6-10.[address] [facility] Comment on above: Order Comment: Reaso n for Exam Generalized Anxiety Disorder (SANDRA);Medication management Performed By: #### V ITD+D2+D3 ####[facility] ,#### CMP, CBC ####[address] [place] [address] [facility] Chloride [Moles/Vol] 104 mmol/L Normal 98-107 [facility] Comment on above: Order Comment: Reaso n for Exam Generalized Anxiety Disorder (SANDRA);Medication management Performed By: #### V ITD+D2+D3 ####[facility] ,#### CMP, CBC ####[address] CO2 [Moles/Vol] 27.5 mmol/L Normal 21.0-31.0 [facility] Comment on above: Order Comment: Reaso n for Exam Generalized Anxiety Disorder (SANDRA);Medication management Performed By: #### V ITD+D2+D3 ####[facility] ,#### CMP, CBC ####[address] Creatinine [Mass/Vol] 0.54 mg/dL Low 0.60-1.20 [facility] Comment on above: Order Comment: Reaso n for Exam Generalized Anxiety Disorder (SANDRA);Medication management Performed By: #### V ITD+D2+D3 ####[facility] ,#### CMP, CBC ####[address] GFR/1.73 sq M.predicted MDRD (S/P/Bld) [Vol rate/Area] mL/min/{1.73_m2} Normal [facility] Comment on above: Order Comment: Reaso n for Exam Generalized Anxiety Disorder (SANDRA);Medication management Performed By: #### V ITD+D2+D3 ####[facility] ,#### CMP, CBC ####[address] Globulin (S) [Mass/Vol] 2.8 g/dL Normal [facility] Comment on above: Order Comment: Reaso n for Exam Generalized Anxiety Disorder (SANDRA);Medication management Performed By: #### V ITD+D2+D3 ####[facility] ,#### CMP, CBC ####[facility] [place] [address] [place] Glucose [Mass/Vol] 79 mg/dL Normal 70-[address] [facility] Comment on above: Order Comment: Reaso n for Exam Generalized Anxiety Disorder (SANDRA);Medication management Result Comment: [place] Glucose Reference Range is dependent on time and content of last meal. Glucose of more than 200 mg/dL in a nonstressed, ambulatory subject supports the diagnosis of Diabetes Mellitus. ADA recommended reference range Performed By: #### V ITD+D2+D3 ####[facility] ,#### CMP, CBC ####[place] [id number] [place] [address] [place] Potassium [Moles/Vol] 4.1 mmol/L Normal 3.5-5.1 [facility] Comment on above: Order Comment: Reaso n for Exam Generalized Anxiety Disorder (SANDRA);Medication management Performed By: #### V ITD+D2+D3 ####[facility] ,#### CMP, CBC ####[address] [address] [place] Protein [Mass/Vol] 7.0 g/dL Normal 6.4-8.[address] [facility] Comment on above: Order Comment: Reaso n for Exam Generalized Anxiety Disorder (SANDRA);Medication management Performed By: #### V ITD+D2+D3 ####[facility] ,#### CMP, CBC ####[address] [address] [place] Sodium [Moles/Vol] 139 mmol/L Normal 136-[address] [facility] Comment on above: Order Comment: Reaso n for Exam Generalized Anxiety Disorder (SANDRA);Medication management Performed By: #### V ITD+D2+D3 ####[facility] ,#### CMP, CBC ####[address] [address] [place] Urea nitrogen [Mass/Vol] 9 mg/dL Normal 7-25 [facility] Comment on above: Order Comment: Reaso n for Exam Generalized Anxiety Disorder (SANDRA);Medication management Performed By: #### V ITD+D2+D3 ####[facility] ,#### CMP, CBC ####[facility] [id number] [place] [address] [facility] Creatinine [Mass/volume] in Serum or PlasmaOrdered By: Radha Mcintosh on 03-17-2023 Creatinine [Mass/Vol] 0.54 mg/dL 0.60-1.20 [facility] Eosinophils Auto (Bld) [#/Vo l]Ordered By: Radha Mcintosh on 03-17-2023 Eosinophils (Bld) [#/Vol] 0.1 10*3/uL 0.0-0.45 [facility] Eosinophils/100 WBC Auto (Bl d)Ordered By: Radha Mcintosh on 03-17-2023 Eosinophils/100 WBC (Bld) 1.5 % . [facility] Erythrocyte distribution wid th Auto (RBC) [Ratio]Ordered By: Radha Mcintosh on 03-17-2023 Erythrocyte distribution wid th (RBC) [Ratio] 15.2 % 11.9-15.3 [facility] Ferritinon 03-17-2023 Ferritin [Mass/Vol] 66.4 ng/mL Normal 11.0-306.[address] [facility] Comment on above: Performed By: #### P HOS, FE, [id number], LILLIA[place], PTH, [place] ####[facility] [id number] [place] [address] [facility] Ferritin [Mass/volume] in Se rum or PlasmaOrdered By: Diony Singh on 03-17-2023 Ferritin [Mass/Vol] 66.4 ng/mL 11.0-306.[address] [facility] Folate [Mass/volume] in Seru m or PlasmaOrdered By: Diony Singh on 03-17-2023 Folate [Mass/Vol] 27.0 ng/mL >5.9 [facility] Comment on above: Folate reference ran ge: >5.9 ng/mlThe WHO technical consultation on folate and vitamin [id number] has determined that folate concentrations lessthan 4 ng/ml are considered deficient. Globulin Calc (S) [Mass/Vol] Ordered By: Radha Mcintosh on 03-17-2023 Globulin (S) [Mass/Vol] 2.8 g/dL [facility] Glucose [Mass/volume] in Ser um or PlasmaOrdered By: Radha Mcintosh on 03-17-2023 Glucose [Mass/Vol] 79 mg/dL 70-[address] [facility] Comment on above: ADA recommended refe rence rangeRandom Glucose Reference Range is dependent on time and content of last meal. Glucose of more than 200 mg/dL in a nonstressed, ambulatory subject supports the diagnosis of Diabetes Mellitus. Hematocrit Auto (Bld) [Volum e fraction]Ordered By: Radha Mcintosh on 03-17-2023 Hematocrit (Bld) [Volume fraction] 39.4 % 3 4.0-46.4 [facility] Hemoglobin [Mass/volume] in BloodOrdered By: Radha Mcintosh on 03-17-2023 Hemoglobin (Bld) [Mass/Vol] 13.1 g/dL 11.8-15. 4 [facility] Ironon 03-17-2023 Iron [Mass/Vol] 40 ug/dL Low 50-212 [facility] Comment on above: Performed By: #### P HOS, FE, [id number], LILLIA[place], PTH, [place] ####[facility] [id number] [place] [id number] [facility] Iron [Mass/volume] in Serum or PlasmaOrdered By: Diony Singh on 03-17-2023 Iron [Mass/Vol] 40 ug/dL 50-212 [facility] Leukocytes [#/volume] correc emily for nucleated erythrocytes in Blood by Automated counOrdered By: Radha Mcintosh on 03-17-2023 WBC corrected for nucl RBC A uto (Bld) [#/Vol] 8.8 10*3/uL 3.8-11.6 [facility] Lymphocytes Auto (Bld) [#/Vo l]Ordered By: Radha Mcintosh on 03-17-2023 Lymphocytes (Bld) [#/Vol] 2.6 10*3/uL 1.00-4.8 [facility] Lymphocytes/100 WBC Auto (Bl d)Ordered By: Radha Mcintosh on 03-17-2023 Lymphocytes/100 WBC (Bld) 29.4 % . [facility] MCH Auto (RBC) [Entitic mass ]Ordered By: Radha Mcintosh on 03-17-2023 MCH (RBC) [Entitic mass] 29.0 pg 24.7-34.3 [facility] MCHC Auto (RBC) [Mass/Vol]Or dered By: Radha Mcintosh on 03-17-2023 MCHC (RBC) [Mass/Vol] 33.3 g/dL 32.0-35.0 [facility] MCV Auto (RBC) [Entitic vol] Ordered By: Radha Mcintosh on 03-17-2023 MCV (RBC) [Entitic vol] 87.0 fL 80-100 [facility] Monocytes Auto (Bld) [#/Vol] Ordered By: Radha Mcintosh on 03-17-2023 Monocytes (Bld) [#/Vol] 0.5 10*3/uL 0.0-0.8 [facility] Monocytes/100 WBC Auto (Bld) Ordered By: Radha Mcintosh on 03-17-2023 Monocytes/100 WBC (Bld) 5.5 % . [facility] Neutrophils Auto (Bld) [#/Vo l]Ordered By: Radha Mcintosh on 03-17-2023 Neutrophils (Bld) [#/Vol] 5.5 10*3/uL 1.8-7.7 [facility] Neutrophils/100 WBC Auto (Bl d)Ordered By: Radha Mcintosh on 03-17-2023 Neutrophils/100 WBC (Bld) 62.8 % . [facility] No Panel InformationOrdered By: Radha Mcintosh on 03-17-2023 Estimated GFR (CKD-EPI) > 60.0 mL/Min [facility] Creatinine Clearanc e (Chem N/A [facility] Nucleated erythrocytes [Pres ence] in Blood by Automated countOrdered By: Radha Mcintosh on 03-17-2023 Nucleated RBC Auto Ql (Bld) 0.1 /100{WBC} 0-0.5 [facility] Parathyrin.intact [Mass/volu me] in Serum or PlasmaOrdered By: Diony Singh on 03-17-2023 Parathyrin.intact [Mass/Vol] 46.2 pg/mL [facility] Parathyroid Hormone Intacton 03-17-2023 Parathyroid Hormone Intact 46.2 pg/mL Normal [facility] Comment on above: Result Comment: PERF ORMED BY: [facility] [address] [place] [address] PATHOLOGIST DIESEL AUTOMOTIVE TECHNICIAN WENDY CLARK M.D. Performed By: #### P HOS, FE, [id number], [place], PTH, [place] ####[facility] [place] [address] [facility] Phosphate [Mass/volume] in S zakia or PlasmaOrdered By: Diony Singh on 03-17-2023 Phosphate [Mass/Vol] 4.0 mg/dL 3.7-7.2 [facility] Phosphoruson 03-17-2023 Phosphate [Mass/Vol] 4.0 mg/dL Normal 3.7-7.2 [facility] Comment on above: Performed By: #### P HOS, FE, [id number], LILLIA[place], PTH, [place] ####[place] [id number] [place] [address] [facility] Platelet mean volume Auto (B ld) [Entitic vol]Ordered By: Radha Mcintosh on 03-17-2023 Platelet mean volume (Bld) [Entitic vol] 7.6 fL 6.3-10.7 [facility] Platelets Auto (Bld) [#/Vol] Ordered By: Radha Mcintosh on 03-17-2023 Platelets (Bld) [#/Vol] 370 10*3/uL 150-450 [facility] Potassium [Moles/volume] in Serum or PlasmaOrdered By: Radha Mcintosh on 03-17-2023 Potassium [Moles/Vol] 4.1 mmol/L 3.5-5.1 [facility] Protein [Mass/volume] in Ser um or PlasmaOrdered By: Radha Mcintosh on 03-17-2023 Protein [Mass/Vol] 7.0 g/dL 6.4-8.[address] [facility] RBC Auto (Bld) [#/Vol]Ordere d By: Radha Mcintosh on 03-17-2023 RBC (Bld) [#/Vol] 4.53 10*6/uL 3.60-5.[address] [facility] Serum or plasma 25-hydroxyca lciferol measurement (mass/volume)Ordered By: Radha Mcintosh on 03-17-2023 25-hydroxyvitamin D2 [Mass/Vol] <1.0 ng/mL . [facility] Comment on above: This test was develo ped and its performance characteristicsdetermined by [facility]. It has not been cleared or approvedby the Food and Drug Administration. Serum or plasma 25-hydroxyvi tamin D measurement (mass/volume)Ordered By: Radha Mcintosh on 03-17-2023 25-hydroxyvitamin D [Mass/Vol] 47 ng/mL . [facility] Comment on above: Reference Range:All Ages: Target levels 30 - 100 Serum or plasma albumin/glob ulin mass ratioOrdered By: Radha Mcintosh on 03-17-2023 Albumin/Globulin [Mass ratio] 1.5 {ratio} [facility] Serum or plasma anion gap de terminationOrdered By: Radha Mcintosh on 03-17-2023 Anion gap [Moles/Vol] 11.6 mmol/L 6.0-15.0 [facility] Serum or plasma calcidiol me asurement (mass/volume)Ordered By: Radha Mcintosh on 03-17-2023 25-hydroxyvitamin D3 [Mass/Vol] 47 ng/mL . [facility] Comment on above: This test was develo ped and its performance characteristicsdetermined by [facility]. It has not been cleared or approvedby the Food and Drug Administration.Performed at: [facility] [id number] [place] [address] [id number] Director: Kenji Malone MD, Phone: [phone] Sodium [Moles/volume] in Ser um or PlasmaOrdered By: Radha Mcintosh on 03-17-2023 Sodium [Moles/Vol] 139 mmol/L 136-[address] [facility] Urea nitrogen [Mass/volume] in Serum or PlasmaOrdered By: Radha Mcintosh on 03-17-2023 Urea nitrogen [Mass/Vol] 9 mg/dL 7-25 [facility] Vit. B12/Folate Profileon Cobalamin (Vitamin B12) [Mass/Vol] 478 pg/mL Normal 180-914 [facility] Comment on above: Performed By: #### P HOS, FE, [id number], [place], PTH, [place] ####[id number] [place] [address] [facility] Folate 27.0 ng/mL Normal >5.[address] [facility] Comment on above: Result Comment: Janel te reference range: >5.9 ng/ml The WHO technical consultation on folate and vitamin b12 deficiencies has determined that folate concentrations less than 4 ng/ml are considered deficient. PERFORMED BY: [facility] [address] [address] PATHOLOGIST DIESEL AUTOMOTIVE TECHNICIAN WENDY CLARK M.D. Performed By: #### P HOS, FE, [id number], LILLIANA, PTH, [place] ####[place] [id number] [facility] Vitamin B12 ser/plasOrdered By: Diony Singh on 03-17-2023 Cobalamin (Vitamin B12) [Mass/Vol] 478 pg/mL 180-914 [facility] Vitamin D 25 Hydroxy,Tot+D2+ D3on 03-17-2023 [facility] Vitamin D 25 [place] 47 ng/mL Normal . [facility] Comment on above: Order Comment: Reaso n for Exam Generalized Anxiety Disorder (SANDRA);Medication management Result Comment: Refe rence Range: All Ages: Target levels 30 - 100 Performed By: #### V ITD+D2+D3 ####[facility] ,#### CMP, CBC ####[place] [id number] [facility] Vitamin D-2 <1.0 Normal . [facility] Comment on above: Order Comment: Reaso n for Exam Generalized Anxiety Disorder (SANDRA);Medication management Result Comment: This test was developed and its performance characteristics determined by [facility]. It has not been cleared or approved by the Food and Drug Administration. Performed By: #### V ITD+D2+D3 ####[facility] ,#### CMP, CBC ####[facility] Vitamin D-3 47 ng/mL Normal . [facility] Comment on above: Order Comment: Reaso n for Exam Generalized Anxiety Disorder (SANDRA);Medication management Result Comment: This test was developed and its performance characteristics determined by [facility]. It has not been cleared or approved by the Food and Drug Administration. Performed at: [employer] [address] [place] [id number] [employer] Broker: Kenji Malone MD, Phone: [phone] PERFORMED BY: [facility] [address] [facility] [address] PATHOLOGIST DIESEL AUTOMOTIVE TECHNICIAN WENDY CLARK M.D. Performed By: #### V ITD+D2+D3 ####[facility] ,#### CMP, CBC ####[place] [id number] [place] [id number] [facility] WBC Auto (Bld) [#/Vol]Ordere d By: Radha Mcintosh on 03-17-2023 WBC (Bld) [#/Vol] 8.8 10*3/uL 3.8-11.[address] [facility] Family Medicine Office/Clini c Noteon 03-14-2023 Family Medicine Office/Clinic Note Chief Complaint est. care HPI Staff Patient here to est. care Establish Care: History: Last provider:Awa Any recent labs:Due Health Maintenance UTD: Colonoscopy:03/29/2023 PSA:N/A Mammogram:12/10/21 Pelvic/Pap: Acute: Current issues/complaints: concerned about mold exposure, and microtoxins. Testing? States seeing Radha Mcintosh for psychiatric care. History of Present Illness 47 Years old Female here for NEW TO ME last seen Awa. chronic care f/u-TM This patient is NEW TO ME Previous PCP was Dr. Donya Billings Last appt with previous PCP was November 24 Social: The patient is not ; her partner, Katie, works at [employer] The patient is NOT currently working; disability for back, fibromyalgia and depression - 8 years The patient has 4 children; 29, 28, 19, 16 Colon Cancer screening: colonoscopy is planned for later this month --> 7 years ago Breast cancer screenin/22 Pap smear: s/p hysterectomy with cervix removal DEXA: age Labs: done at [facility] List of Providers: [place] [facility] [place] / [place] [facility] staff / Chief Complaint confirmed with the patient Interval history: OARRS - tramadol monthly temazepam last rxd in july alprazolam in Jun mold exposure same apartment for the last 5 years * brother was 42 when he had a heart attack - daily smoker, daily drinker, drinking significant energy drinks and mountain dew daily * 02/16/23 - raya Saeed HTN - BP well controlled ECHO and stress test results reviewed - ECG appropriate, hit HR goal no recent arrhythmia on apple watch planning to repeat the 30 day monitor 02/03/23 - message re-fax pysch referral to [facility] 02/02/23 - urology - OAB - treated with botox --> several options discussed, pt decided to stay the course 01/26/23 - raya saeed HX - brother, age 42, recently from a heart attack occasional smoker prior 30 day event monitor was abnormal admits to significant anxiety noted to have a self-described malar rash, WILL positive but no diagnosis of lupus --> pending endocrinology appt somewhat frustrated with her palpitations and labile blood pressure pending spinal surgery? blood pressure better controlled recently on diltiazem recent ECG was NSR - 12/24/22 palpitations - worse without beta shorty blood pressure - better with diltiazem - would like to defer adding back the beta shorty 01/26/23 - PCP - Nayeli anxiety - asking for referral to psychiatry due to increasing anxiety [place]24[place] [facility] [place]/05/23 - ED uncontrolled blood pressure, and concern of DVT I may have over reacted 01/04/23 - raya Saeed palpitations - not tolerating metoprolol --> changed to diltiazem leg pain - CTA negative --> requesting US of her leg HTN - BP is well controlled 12/30/22 - [facility] [place] uncontrolled BP 12/23/22 - raya madera palpitations - hx of abnormal 30 day event monitor requesting second opinion due to recent fatal OK in her 42 y/o brother regular chest tightness *noted to have pending appt with endocrinology sleep is an issue - palpitations interrupt her sleep at night --> plan for treadmill/MPI stress -- pending results, may require coronary angiogram recommended 81mg ASA, continue metoprolol and magnesium --> PSG --> lipids 12/20/22 - message unhappy with outcome from [place] cardiology app[place] [facility] [place] [facility] [place] cardiology palpitations/ SOB - echo and stress test negative 11/24/22 - message requestin rheum referral to Dr. Cadet because she doesn't drive on [place] 11/11/22 - PCP - Dr. Donya Billings anxiety - xanax PRN insomnia - continue melatonin noted rx for temazepam metoprolol rx 11/05/22 - [facility] [place] chest pain LABS Cr/eGFR: No qualifying data available. A1c: No qualifying data available. TSH: No qualifying data available. Vit D: No qualifying data available. LDL: No qualifying data available. Lipids: No qualifying data available. Microalbumin: No qualifying data available. INR: No qualifying data available. Testosterone: No qualifying data available. Free and total testosterone: No qualifying data available. Future Appointments [facility] [place] Appt. Date: 03/11/2023 8:40 AM Scheduled Provider: Diony Singh DO [address] [place], [place], [id number] Phone: -- Fax: -- [facility]: 04/11/2023 10:00 AM Scheduled Provider: [place], [address] Phone: [phone] Fax: [phone] [facility] [place] Appt. Date: 11/16/2023 1:00 PM Scheduled Provider: BRIAN [facility] [employer] [facility] Phone: -- Fax: -- PHYSICAL EXAM Constitutional: Vital signs reviewed; ULPE PICKARD is well nourished, no acute distress - _ Head: Atraumatic, normocephalic Eye: EOMI, normal conjunctiva ENT: Moist oral mucosa, external inspection of ears and nose is unremarkable Neck: Trachea is midline, no tenderness Lungs: Cl (more content not included)... Normal [facility] Comment on above: Result Comment: Elec tronically Signed By: Diony Singh DO\Date and Time Signed: 03/14/23 14:15 EDT Family Medicine Office/Clinic Note Chief Complaint est. care HPI Staff Patient here to est. care Establish Care: History: Last provider:Awa Any recent labs:Due Health Maintenance UTD: Colonoscopy:03/29/2023 PSA:N/A Mammogram:12/10/21 Pelvic/Pap: Acute: Current issues/complaints: concerned about mold exposure, and microtoxins. Testing? States seeing Radha Mcintosh for psychiatric care. History of Present Illness Lupe is a 47 y.o. female here to ESTABLISH CARE This patient is NEW to me Previous PCP was Dr. Billings Last appt with him 11/11/22 Other providers: Dr. Madera - cardiology Lupe is here to discuss her medications, anxiety, palpitations, and chronic back pain. She has had a difficult time adjusting to recent stressors in her life such as the deaths of her sister in law, father in law, and brother. She states these events have most likely had a big impact on her anxiety and palpitations. She feels an overwhelming sense of anxiety sometimes when being by herself. She has seen cardiology but she has not found conclusive answers on what is going on. She reports metoprolol helped her palpitations but spiked her blood pressure. Diltiazem improved blood pressure issue but palpitations came back. She also has a thought of mold in her house causing her symptoms. Ultimately she is looking for a cause of all her symptoms and is not finding any success, upsetting her with her lack of progress. For her chronic back pain, she recently stopped tramadol and is on [place], which subsequently ended her use of benzodiazepines. She does not feel much relief with the opioid medication and prefers to get off of it and try something else such as medical marijuana. Review of Systems PHQ Score Initial Depression Screen Score: 1 Physical Exam Vitals & Measurements HR: 91(Peripheral) BP: 140/88 SpO2: 98% HT: 67 in HT: 170 cm WT: 123.8 kg WT: 272.36 lb BMI: 42.84 PHYSICAL EXAM Constitutional: Vital signs reviewed; LUPE PICKARD is in no acute distress Head: Atraumatic, normocephalic Eye: EOMI, normal conjunctiva ENT: Moist oral mucosa, external inspection of ears and nose is unremarkable Neck: Trachea is midline, no tenderness Lungs: Clear to auscultation, non-labored respiration - expansion is symmetric Heart: Regular rate and rhythm; no murmurs, normal S1 and S2; sporadic palpitations Lymph: Deferred Abd: Deferred : Deferred MSK: Pain in her back and generalized throughout Skin: Warm, dry Neurologic: Awake, alert and oriented, speech is normal, no focal deficits, CN II-XII grossly intact Psychiatric: Cooperative, appropriate mood and affect, judgement is appropriate; frequent anxiety and some depression Assessment/Plan 1. Palpitations (R00.2: Palpitations) Chronic Unstable Cardiology testing has shown normal results on stress test, an event monitor showing some events of ventricular tachycardia, and an echo showing EF of 55-60% stage I diastolic dysfunction Large possibility the palpitations are largely influenced from her anxiety Discussed her underlying thoughts that contribute to her anxiety and her disability status that may contribute to perseveration on this idea of palpitations Discussed how no answer may be narrowed down F/u 1 month 2. Medication management (Z79.899: Other manager intermediate (current) drug therapy) Long list of medications Currently on [place] for back pain; recently removed from tramadol and benzodiazepines Started with organisational psychologist who started lexapro, propanolol, and hydroxyzine regimen for anxiety Patient would like to get off opioids Medical marijuana a consideration for her chronic pain F/u 1 month 3. Anxiety (F41.1: Generalized anxiety disorder) Chronic Unstable; has gotten worse over past several years Recent deaths in her family have had big impact on her anxiety Discussed how this is a hard adjustment that medications may not be the easiest way to fix Discussed rethinking her thought process on what she can control Educated on ADHD and its role here Lent her a copy of Driven to Distraction F/u 1 month 4. Chronic insomnia (F51.04: Psychophysiologic insomnia) Chronic Poor control She wakes up in the night and doesn't get sound sleep Takes melatonin F/u 1 month 5. Fibromyalgia (M79.7: Fibromyalgia) Chronic Unstable Currently on opioids but would like to get off of them Discussed possible use of medical marijuana for her F/u 1 month 6. Moderate recurrent major depression (F33.1: Major depressive disorder, recurrent, moderate) Chronic Moderate control Deaths in family also a contributor here Also impacted from lack of understanding about her causes of her medical conditions F/u 1 month 7. Morbid obesity (E66.01: Morbid (severe) obesity due to excess calories) Chronic Poor control Important to start control of weight in the kitchen first vs the gym F/u 1 month Adult BMI 40.0-44.9 kg/sq m (Z68.41: Body mass index [BMI] 40.0-44.9, adult) Follow-up No qualifying (more content not included)... Normal [facility] Comment on above: Result Comment: Elec tronically Signed By: Diony Singh DO\.br\Date and Time Signed: 03/14/23 14:13 EDT Other Comment: brent mccarty - student note Ambulatory Visit Summaryon 1 Ambulatory Visit Summary LUPE PICKARD :1975 Visit Date:03/11/2023 Ambulatory Visit Instructions Your Diagnosis Palpitations Medication management Anxiety Chronic insomnia Fibromyalgia Moderate recurrent major depression Morbid obesity Adult BMI 40.0-44.9 kg/sq m Your Care Team Attending Physician - Diony Singh DO Primary Care Physician - Diony Singh DO This Is Your Medications List Contact prescribing physician if questions or concerns acetaminophen (Tylenol) acetaminophen-hydrocodone ([place] 5/325 Tab) alprazolam (alprazolam 0.5 mg Tab) aspirin (aspirin 81 mg oral capsule) baclofen (baclofen 20 mg Tab) calcium-vitamin D (calcium (as carbonate)-vitamin D 500 mg-200 intl units oral tablet) cholecalciferol (Vitamin D3 2000 intl units oral Tab) clonidine (cloNIDine 0.1 mg tab) diltiazem (diltiazem CD 240 mg/24 hours Cap-ER) escitalopram (Lexapro 5 mg oral tablet) hydrOXYzine (hydrOXYzine pamoate 25 mg Cap) levothyroxine (Synthroid 125 mcg (0.125 mg) Tab) lubiprostone (lubiprostone 24 mcg Cap) magnesium oxide melatonin multivitamin (Multi Vitamin+) propranolol (propranolol 20 mg Tab) tramadol (traMADol 100 mg oral tablet) [Image Removed: STOP]Stop taking these medications fluconazole (Diflucan 150 mg Tab) Procedures Performed Injection of therapeutic substance into bladder wall (12/14/2021), Injection of therapeutic substance into bladder wall (01/07/2020), Injection of therapeutic substance into bladder wall (04/25/2017), robotic surgery converted to laparoscopic bilateral salpingectomy (11/27/2014), Lumbar epidural steroid injection (06/14/2013), Radiofrequency ablation of nerve root of lumbar spine using fluoroscopic guidance (01/04/2013), Injection into facet joint of lumbar spine using fluoroscopic guidance (12/14/2012), Injection into facet joint of lumbar spine using fluoroscopic guidance (11/16/2012), Lumbar Selective Nerve Root Block (07/28/2012), Lumbar Selective Nerve Root Block (06/23/2012), Cystourethroscopy with dilation of urethral stricture (04/26/2011), section, essure procedure, LEEP procedure of cervix, Thyroidectomy. Discharge Vitals Heart Rate (Peripheral) 91 Blood Pressure 140/88 Height 170 cm Height 67 in Weight 123.8 kg Weight 272.36 lb BMI 42.84 What to do next Scheduled Follow-Up Appointments 2022 1:00 PM EST With: Diony Singh DO Where: [facility] Invalid Interpretation Code [address] [place] [address]-\.br\ Tuesday 1:00 PM EDT \.br\ With:\.br\ Where: [facility] Consent for Treatmenton 02-27 Consent for Treatment [id number] Normal [facility] Heart and Vascular Office/Cl inic Noteon 03-08-2023 Heart and Vascular Office/Clinic Note Chief Complaint 2 week b/p check History of Present Illness Lupe Pickard is a 47-year-old female patient of Dr. Madera with past medical story positive for hypertension, fibromyalgia, GERD, reformed smoker. She is been following with MD for episodes of palpitations. She had a event monitor with episodes of narrow complex tachycardia suggestive of atrial tachycardia as well as few beats of nonsustained VT. She had echocardiogram with structurally normal heart. Most recently she had a stress MPI in December 2022 which was negative for ischemia. Has been taking diltiazem for her palpitations in addition to clonidine for her blood pressure. She is here today for blood pressure check. She is still having palpitations and is concerned about heart rate. She does not feel like the event monitor was accurate. Also concerned the target heart rate was not met for her exercise stress. She feels that something is wrong and didn't feel heard about these concerns last visit. Review of Systems Constitutional: no fever, no chills, no weakness, no fatigue Respiratory: no shortness of breath, no cough, no orthopnea, no wheezing Cardiovascular: no chest pain, no palpitations, no edema Neuro:no dizziness no light headed no syncope Additional ROS info: Except as noted in the above Review of Systems and in the History of Present Illness all other systems have been reviewed and are negative or noncontributory. Physical Exam Vitals & Measurements HR: 71(Peripheral) BP: 135/85 SpO2: 100% HT: 67 in HT: 170 cm WT: 122.1 kg WT: 268.62 lb BMI: 42.25 General: alert, no acute distress Neck: Supple, noJVD nocarotid bruit Cardiovascular: regular rate and rhythm, no murmur normal peripheral perfusion Respiratory: Lungs CTA, respirations non labored Extremities:no edema Neurological: oriented x 4, LOC appropriate for age, sensation equal & normal bilaterally, speech normal Skin: Warm, dry, intact- no rash or concerning lesions Cardiac Diagnostics (01/24/2023 14:18 EDT NM Myocardial Spect Multi Stress) FINDINGS: Review of raw images demonstrates some soft tissue attenuation. Uptake of the tracer was generally homogeneous with no identifiable ischemia or infarction. The TID ratio was 0.80. The ejection fraction was 70%. End diastolic volume 95 mL. CONCLUSIONS: Negative treadmill nuclear stress test. Overall low risk stress. [1] Assessment/Plan 1. Hypertension (I10: Essential (primary) hypertension) Blood pressure is stable. We reviewed her echo and stress results at length. I personally reviewed the ECG portion of stress- she did hit target HR. Would consider study adequate. Reviewed strips from [employer]- no arrhythmia. Will repeat a 30 day event monitor Continue current medications for now Portions of this record may have been created with voice recognition artificial intelligence software, specifically PhoneAndPhone, Time Warden and or [employer]Need Experience. Substitutions may have occurred due to the inherent limitations of voice recognition and artificial intelligence software. Follow-up With When Contact Information SANTY PELAYO, [place] [phone] Additional Instructions: 4-6 weeks Problem List/Past Medical History Ongoing Anxiety BMI 40.0-44.9, adult Butterfly rash Chronic bilateral low back pain Chronic insomnia Diffuse arthralgia Fibromyalgia GERD (gastroesophageal reflux disease) Hypervitaminosis D Medication management Moderate recurrent major depression Morbid obesity Other specified hypothyroidism Overactive bladder Panic attack Resistance to insulin Smoker Symptomatic PVCs Vitamin D deficiency Historical Smoker Procedure/Surgical History Injection of therapeutic substance into bladder wall (12/14/2021), Injection of therapeutic substance into bladder wall (01/07/2020), Injection of therapeutic substance into bladder wall (04/25/2017), robotic surgery converted to laparoscopic bilateral salpingectomy (11/27/2014), Lumbar epidural steroid injection (06/14/2013), Radiofrequency ablation of nerve root of lumbar spine using fluoroscopic guidance (01/04/2013), Injection into facet joint of lumbar spine using fluoroscopic guidance (12/14/2012), Injection into facet joint of lumbar spine using fluoroscopic guidance (11/16/2012), Lumbar Selective Nerve Root Block (07/28/2012), Lumbar Selective Nerve Root Block (06/23/2012), Cystourethroscopy with dilation of urethral stricture (04/26/2011), section, essure procedure, LEEP procedure of cervix, Thyroidectomy. Medications alprazolam 0.5 mg Tab, 0.5 mg= 1 tab(s), Oral, Daily, 2 refills aspirin 81 mg oral capsule baclofen 20 mg Tab, Oral, TID calcium (as carbonate)-vitamin D 500 mg-200 intl units oral tablet, 1 tab(s), Oral, BID, 5 refills cloNIDine 0.1 mg tab, 0.1 mg= 1 tab(s), Oral, Daily, PRN, 5 refills Diflucan 150 mg Tab, 150 mg= 1 tab(s), Oral, q7day diltiazem CD 240 mg/24 hours Cap-ER, (more content not included)... Normal [facility] Comment on above: Result Comment: Elec tronically Signed By: Roula SAEED CNP\[place]\Date and Time Signed: 03/08/23 14:35 EDT Free T4 (Free Thyroxine)on 0 02-17-2023 Free T4 [Mass/Vol] 0.87 ng/dL Normal 0.61-1.[address] [facility] Comment on above: Performed By: #### T 3F, TSH3, T4F ####[place] [id number] [place] [address] [facility] Thyroid Stimulating Hormoneo n 02-17-2023 TSH Qn 0.24 m[IU]/L Low 0.45-5.33 [facility] Comment on above: Result Comment: PERF ORMED BY: [facility] [address] [id number] PATHOLOGIST [employer]EL AUTOMOTIVE TECHNICIAN WENDY CLARK M.D. Performed By: #### T 3F, TSH3, T4F ####[place] [id number] [facility] Thyrotropin [Units/volume] i n Serum or PlasmaOrdered By: Kenyetta Dove on 02-17-2023 TSH Qn 0.24 m[IU]/L 0.45-5.33 [facility] Thyroxine (T4) free [Mass/vo lume] in Serum or PlasmaOrdered By: Kenyetta Dove on 02-17-2023 Free T4 [Mass/Vol] 0.87 ng/dL 0.61-1.[address] [facility] Triiodothyronine (T3) Freeon 02-17-2023 Triiodothyronine (T3) Free 3.89 pg/mL Normal 2.50-3.90 [facility] Comment on above: Result Comment: PERF ORMED BY: [facility] [address] [place] [address] PATHOLOGIST D[employer]EL AUTOMOTIVE TECHNICIAN WENDY CLARK M.D. Performed By: #### T 3F, TSH3, T4F ####[address] [address] [facility] Triiodothyronine (T3) Free [ Mass/volume] in Serum or PlasmaOrdered By: Kenyetta Dove on 02-17-2023 Free T3 [Mass/Vol] 3.89 pg/mL 2.50-3.[address] [facility] Consent for Treatmenton 01-29 Consent for Treatment [id number]:127 Normal [facility] Physician Orderon 02-16-2023 Physician Order [id number]:127 Normal [facility] NM Myocardial Spect Part 2on 02-09-2023 NM Myocardial Spect Part 2 Exam Date/Time: 01/24/2023 14:18 EDT 01/21/2023 10:29 EDT Reason for Exam: Chest pain;R07.9 R07.9;Chest pain Report PROCEDURE: Treadmill nuclear stress test INDICATIONS: Chest pain. PROCEDURE DETAILS: The patient was stressed on a 2 day protocol with John Protocol exercising for 5 minutes 6 seconds achieving a heart rate of 169 beats per minute which is 96% of maximal age predicted heart rate and 7.0 METS. Baseline electrocardiogram was normal sinus rhythm, nonspecific ST-T wave abnormality. During peak stress there was significant artifact and could not be determined if there were any electrocardiogram changes. The patient had no symptoms of chest pain or shortness of breath. The patient received 29.1 millicuries of Cardiolite for rest images and 29.1 millicuries of Cardiolite for stress images on separate days. FINDINGS: Review of raw images demonstrates some soft tissue attenuation. Uptake of the tracer was generally homogeneous with no identifiable ischemia or infarction. The TID ratio was 0.80. The ejection fraction was 70%. End diastolic volume 95 mL. CONCLUSIONS: Negative treadmill nuclear stress test. Overall low risk stress. FINAL REPORT Signed (Electronic Signature): 02/09/2023 12:28 pm Signed by: Owen Schmidt MD Transcribed by: addison Technologist: MADDI Technical Comments NM Myocardial Spect Part 2: Please See Report for NM Myocardial Spect Rest/Stress 2 Day Stress Dose (mCi Tc99M Cardiolite): 29.1 NM Myocardial Spect Rest/Stress 2 Day: Rest Dose (mCi Tc99m Cardiolite): 29.1 Normal [facility] Patient Educationon 02-03-20 Patient Education Obstetrics and Gynec ology Overactive Bladder, Adult Overactive bladder is a condition in which a person has a sudden and frequent need to urinate. A person might also leak urine if he or she cannot get to the bathroom fast enough (urinary incontinence). Sometimes, symptoms can interfere with work or social activities. What are the causes? Overactive bladder is associated with poor nerve signals between your bladder and your brain. Your bladder may get the signal to empty before it is full. You may also have very sensitive muscles that make your bladder squeeze too soon. This condition may also be caused by other factors, such as: ? Medical conditions: ? Urinary tract infection. ? Infection of nearby tissues. ? Prostate enlargement. ? Bladder stones, inflammation, or tumors. ? Diabetes. ? Muscle or nerve weakness, especially from these conditions: ? A spinal cord injury. ? Stroke. ? Multiple sclerosis. ? Parkinson's disease. ? Other causes: ? Surgery on the uterus or urethra. ? Drinking too much caffeine or alcohol. ? Certain medicines, especially those that eliminate extra fluid in the body (diuretics). ? Constipation. What increases the risk? You may be at greater risk for overactive bladder if you: ? Are an older adult. ? Smoke. ? Are going through menopause. ? Have prostate problems. ? Have a neurological disease, such as stroke, dementia, Parkinson's disease, or multiple sclerosis (MS). ? Eat or drink alcohol, spicy food, caffeine, and other things that irritate the bladder. ? Are overweight or obese. What are the signs or symptoms? Symptoms of this condition include a sudden, strong urge to urinate. Other symptoms include: ? Leaking urine. ? Urinating 8 or more times a day. ? Waking up to urinate 2 or more times overnight. How is this diagnosed? This condition may be diagnosed based on: ? Your symptoms and medical history. ? A physical exam. ? Blood or urine tests to check for possible causes, such as infection. You may also need to see a health care provider who specializes in urinary tract problems. This is called a urologist. How is this treated? Treatment for overactive bladder depends on the cause of your condition and whether it is mild or severe. Treatment may include: ? Bladder training, such as: ? Learning to control the urge to urinate by following a schedule to urinate at regular intervals. ? Doing Kegel exercises to strengthen the pelvic floor muscles that support your bladder. ? Special devices, such as: ? Biofeedback. This uses sensors to help you become aware of your body's signals. ? Electrical stimulation. This uses electrodes placed inside the body (implanted) or outside the body. These electrodes send gentle pulses of electricity to strengthen the nerves or muscles that control the bladder. ? Women may use a plastic device, called a pessary, that fits into the vagina and supports the bladder. ? Medicines, such as: ? Antibiotics to treat bladder infection. ? Antispasmodics to stop the bladder from releasing urine at the wrong time. ? Tricyclic antidepressants to relax bladder muscles. ? Injections of botulinum toxin type A directly into the bladder tissue to relax bladder muscles. ? Surgery, such as: ? A device may be implanted to help manage the nerve signals that control urination. ? An electrode may be implanted to stimulate electrical signals in the bladder. ? A procedure may be done to change the shape of the bladder. This is done only in very severe cases. Follow these instructions at home: Eating and drinking ? Make diet or lifestyle changes recommended by your health care provider. These may include: ? Drinking fluids throughout the day and not only with meals. ? Cutting down on caffeine or alcohol. ? Eating a healthy and balanced diet to prevent constipation. This may include: ? Choosing foods that are high in fiber, such as beans, whole grains, and fresh fruits and vegetables. ? Limiting foods that are high in fat and processed sugars, such as fried and sweet foods. Lifestyle ? Lose weight if needed. ? Do not use any products that contain nicotine or tobacco. These include cigarettes, chewing tobacco, and vaping devices, such as e-cigarettes. If you need help quitting, ask your health care provider. General instructions ? Take rupj-tnn-dmeemyo and prescription medicines only as told by your health care provider. ? If you were prescribed an antibiotic medicine, take it as told by your health care provider. Do not stop taking the antibiotic even if you start to feel better. ? Use any implants or pessary as told by your health care provider. ? If needed, wear pads to absorb urine leakage. ? Keep a log to track how much and when you drink, and when you need to urinate. This will help your health care provider monitor yo (more content not included)... Normal [facility] Urology Office/Clinic Noteon 02-02-2023 Urology Office/Clinic Note Chief Complaint Follow up to Botox HPI Staff Pt is here today for follow up to Botox done 10/04/22. Last OV 07/20/22. BUN 8, Creatinine 0.52 done 08/10/22. Previous DX: left flank pain, nocturia, OAB, urge incontinence, urinary retention. Pt unable to give urine sample at beginning of OV. PVR today 217ml. Pt able to void and put out 275ml towards end of OV. Dysuria: denies pain and burning Incomplete bladder emptying: sometimes Hematuria: denies visible blood Frequency: 4-5x a day Urgency: occasionally Nocturia: 3-4x a night Stream: sometimes hesitancy, medium stream Leaking: denies Post void dripping: denies Wearing pads/ Depends: denies Urge incontinence: denies Stress incontinence: denies Incontinence without Sensory Awareness: denies Abdominal pain: denies Flank pain: denies Sexual complaints: denies Review of Systems PHQ Score Initial Depression Screen Score: 0 no fever, chills, malaise, myalgia. no rash/lesions. no chest pain, palpitations, or SOB. no abdominal pain, nausea, vomiting. no unilateral calf swelling, redness, pain Physical Exam Vitals & Measurements T: 36.2 ?C(Temporal Artery) HR: 73(Peripheral) BP: 149/81 General: nontoxic, NAD Mouth: moist mucosa Lungs: normal respiratory effort Cardio: regular rate, good distal perfusion Abdomen: nondistended, no suprapubic distention or tenderness, no CVA tenderness Neurologic: Grossly normal Skin: No rashes or suspicious lesions Assessment/Plan 1. Overactive bladder (N32.81: Overactive bladder) S/p Botox #6 done 10/04/22. Denies UTI sx. no dysuria, odor, cloudiness, SP/LB/flank pain. Urgency has improved but not completely resolved. Nocturia improved initially but for the past month it's worsening slightly. Overall, pt doesn't feel like this round of Botox worked as well as previous rounds. We discussed options: 1) re-dose Botox now at same dose 2) increase Botox dose next time 3) layer on oral medication now knowing that although it didn't help initially, perhaps now that it will be used in combination with Botox that it will help more. could consider just starting w qhs oxybutynin 5mg IR since nocturia is her biggest concern. 4) hang tight and see how things go Pt prefers option 4 for now. will call if she decides she'd like to try #3. otherwise will call when she feels it's time for her next Botox dose. Ordered: [id number] Measure Post Void residual urine and/or bladder capacity by US- non-imaging E&M of Est. Patient Moderate 30-39 Min 82390 Follow-up With When Contact Information ALLYSSA TREJO PA-C, URL Only if needed [id number] [place] [address] Business (1) Additional Instructions: Call today to schedule your follow up Patient Education Overactive Bladder, Adult Problem List/Past Medical History Ongoing Anxiety BMI 40.0-44.9, adult Butterfly rash Chronic bilateral low back pain Chronic insomnia Diffuse arthralgia Fibromyalgia GERD (gastroesophageal reflux disease) Hypervitaminosis D Medication management Moderate recurrent major depression Morbid obesity Other specified hypothyroidism Overactive bladder Panic attack Resistance to insulin Smoker Symptomatic PVCs Vitamin D deficiency Historical Smoker Procedure/Surgical History Injection of therapeutic substance into bladder wall (12/14/2021), Injection of therapeutic substance into bladder wall (01/07/2020), Injection of therapeutic substance into bladder wall (04/25/2017), robotic surgery converted to laparoscopic bilateral salpingectomy (11/27/2014), Lumbar epidural steroid injection (06/14/2013), Radiofrequency ablation of nerve root of lumbar spine using fluoroscopic guidance (01/04/2013), Injection into facet joint of lumbar spine using fluoroscopic guidance (12/14/2012), Injection into facet joint of lumbar spine using fluoroscopic guidance (11/16/2012), Lumbar Selective Nerve Root Block (07/28/2012), Lumbar Selective Nerve Root Block (06/23/2012), Cystourethroscopy with dilation of urethral stricture (04/26/2011), section, essure procedure, LEEP procedure of cervix, Thyroidectomy. Medications alprazolam 0.5 mg Tab, 0.5 mg= 1 tab(s), Oral, Daily, 2 refills aspirin 81 mg oral capsule baclofen 20 mg Tab, Oral, TID calcium (as carbonate)-vitamin D 500 mg-200 intl units oral tablet, 1 tab(s), Oral, BID, 5 refills cloNIDine 0.1 mg tab, 0.1 mg= 1 tab(s), Oral, Daily, PRN, 5 refills Diflucan 150 mg Tab, 150 mg= 1 tab(s), Oral, q7day diltiazem CD 240 mg/24 hours Cap-ER, 240 mg= 1 cap(s), Oral, Daily lubiprostone 24 mcg Cap, 24 mcg= 1 cap(s), Oral, BID, 5 refills magnesium oxide, 400 mg, Oral, BID melatonin, 10 mg, Oral, Once a day (at bedtime) Multi Vitamin+ Synthroid 125 mcg (0.125 mg) Tab traMADol 100 mg oral tablet, 100 mg= 1 tab(s), Oral, TID Tylenol Vitamin D3 2000 intl units oral Tab, 50 mcg, Oral, Daily, 2 refills Allergies Effexor (Dreams) Social History (more content not included)... Normal [facility] Comment on above: Result Comment: Elec tronically Signed By: MAYA DELCID, ALLYSSA Bellamy\.br\Date and Time Signed: 02/02/23 09:42 EDT Heart and Vascular Office/Cl inic Noteon 01-31-2023 Heart and Vascular Office/Clinic Note Chief Complaint ED F/U palpitations and HTN History of Present Illness Lupe Pickard is a 47-year-old female patient with fibromyalgia, GERD, anxiety/depression. She is morbidly obese. She had been a former Dr. Daniela Richey patient. Recently established with Dr. Madera for further evaluation of chest pain, palpitations, and difficult to control hypertension. MD ordered echocardiogram and stress testing. Unfortunately, patient was seen at [facility] ER for elevated blood pressure and palpitations. She brings in labs that show elevated D-dimer. She had a coronary artery CTA which was negative for PE, no mention of any coronary artery calcifications. Blood pressure in the office today is normotensive. She tells me her blood pressure is elevated at home. She does not like the beta-shorty that she has been prescribed, metoprolol succinate, and would like something different. Review of Systems PHQ Score Initial Depression Screen Score: 0 Constitutional: no fever, no chills, no weakness, positive fatigue Respiratory: Positive shortness of breath, no cough, no orthopnea, no wheezing Cardiovascular: Positive chest pain, positive palpitations, no edema Neuro:no dizziness no light headed no syncope Additional ROS info: Except as noted in the above Review of Systems and in the History of Present Illness all other systems have been reviewed and are negative or noncontributory. Physical Exam Vitals & Measurements HR: 77(Peripheral) BP: 130/83 SpO2: 99% HT: 67 in HT: 170 cm WT: 122 kg WT: 268.4 lb BMI: 42.21 General: alert, no acute distress Neck: Supple, noJVD nocarotid bruit Cardiovascular: regular rate and rhythm, no murmur normal peripheral perfusion Respiratory: Lungs CTA, respirations non labored Extremities:no edema Neurological: oriented x 4, LOC appropriate for age, sensation equal & normal bilaterally, speech normal Skin: Warm, dry, intact- no rash or concerning lesions Assessment/Plan 1. Palpitations (R00.2: Palpitations) Patient is not tolerating metoprolol. We will change her to diltiazem 180 mg daily. Continue other current medications. Patient will be having noninvasive cardiac testing in the near future and follow-up with Dr. Madera to review results. 2. Leg pain (M79.606: Pain in leg, unspecified) Patient had a recent elevated D-dimer at [facility] ER, her chest CTA was negative. Patient now has some leg pain and wants to have venous duplex. We will obtain a venous duplex and call with results. 3. Hypertension (I10: Essential (primary) hypertension) Pressure is normotensive in the office today, elevated at home. We will change her metoprolol 25 to diltiazem 180 mg daily and uptitrate as needed. 4. Obesity (E66.9: Obesity, unspecified) The standard range for ages 18 and older is >=18.5 and < 25 kg/m2. Your BMI today was above this range, this falls in the overweight to obese category and there are medical benefits to weight loss. We can offer counselling, referral, and/or medical support in addressing this problem. Your BMI and weight management will be followed at subsequent visits. Follow-up With When Contact Information Roula SAEED CNP [address] [place] [phone] Additional Instructions: Keep previously scheduled appointment Dr. Laureano Problem List/Past Medical History Ongoing Anxiety BMI 40.0-44.9, adult Butterfly rash Chronic bilateral low back pain Chronic insomnia Diffuse arthralgia Fibromyalgia GERD (gastroesophageal reflux disease) Hypervitaminosis D Medication management Moderate recurrent major depression Morbid obesity Other specified hypothyroidism Overactive bladder Panic attack Resistance to insulin Smoker Symptomatic PVCs Vitamin D deficiency Historical Smoker Procedure/Surgical History Injection of therapeutic substance into bladder wall (12/14/2021), Injection of therapeutic substance into bladder wall (01/07/2020), Injection of therapeutic substance into bladder wall (04/25/2017), robotic surgery converted to laparoscopic bilateral salpingectomy (11/27/2014), Lumbar epidural steroid injection (06/14/2013), Radiofrequency ablation of nerve root of lumbar spine using fluoroscopic guidance (01/04/2013), Injection into facet joint of lumbar spine using fluoroscopic guidance (12/14/2012), Injection into facet joint of lumbar spine using fluoroscopic guidance (11/16/2012), Lumbar Selective Nerve Root Block (07/28/2012), Lumbar Selective Nerve Root Block (06/23/2012), Cystourethroscopy with dilation of urethral stricture (04/26/2011), section, essure procedure, LEEP procedure of cervix, Thyroidectomy. Medications alprazolam 0.5 mg Tab, 0.5 mg= 1 tab(s), Oral, Daily, 2 refills aspirin 81 mg oral capsule baclofen 20 mg Tab, Oral, TID calcium (as carbonate)-vitamin D 500 mg-200 intl units oral tablet, 1 tab(s), Oral, BID, 5 refills cloNIDine 0.1 mg tab, 0.1 mg= 1 tab(s), Oral, Daily, PRN, 5 refills Diflucan 150 mg Tab, 150 mg= 1 tab (more content not included)... Normal [facility] Comment on above: Result Comment: Elec tronically Signed By: Roula SAEED CNP\.br\Date and Time Signed: 01/31/23 14:27 EDT Physician Referralon 023 Physician Referral [id number]#1.00CD:127 Normal [facility] Physician Referral [id number]:127 Normal [facility] Sleep Studieson 01-28-2023 Sleep Studies [id number]:127 Normal [facility] Consent for Treatmenton 12-30 Consent for Treatment [id number]:127 [facility] Heart and Vascular Office/Cl inic Noteon 01-27-2023 Heart and Vascular Office/Clinic Note History of Present Illness Patient is a very pleasant 47-year-old morbidly obese nondiabetic female with a history of fibromyalgia, GERD, former smoker quit more than 30 years ago, referred to our office for palpitations. Patient was originally referred to [facility] with Dr. Ross and she provided several printouts including a 30-day event monitor which took place on 06/15/2022 which was abnormal which demonstrated a couple events of ventricular tachycardia 1 for 3 beats and 145 beats at 217 bpm another episode of narrow complex tachycardia suggestive of atrial tachycardia at a rate of 130 beats a minute. In addition echocardiogram dated 05/06/2020 showed an EF of 55 to 60%, stage I diastolic dysfunction unable to quantitate RVSP. On further history the patient smokes occasionally, and recently had a brother at age 42 from a myocardial infarction. She has no other known family history. The patient has significant anxiety which is a known entity, and has complained of chest tightness with her anxiety. She reports that she had a stress test which was a walking test only last month, and was told it was okay by her burnt lime drawer. Given the patient's family history of heart disease she wanted a second opinion. The patient went to the emergency room in the recent past and [facility] where her blood pressure was found to be 166/102 and she had chest pressure and discomfort at that time. She is complained of palpitations for the past 2 years since being diagnosed with COVID. She states that she thinks she may have had a Maller rash and is WILL positive but never been diagnosed with lupus. She has a pending appointment with endocrinology. Patient also has complained of sleep disturbance with palpitations at night. Recently her Toprol was increased to 50 mg p.o. daily and her palpitations have worsened. Patient underwent a stress test on 01/24/2023 with the following results: (01/24/2023 14:18 EDT NM Myocardial Spect Multi Stress) CONCLUSIONS: Negative treadmill nuclear stress test. Overall low risk stress. [1] Patient is now here to go over testing results. Testing results given to the patient. Patient is somewhat frustrated with her palpitations and her labile blood pressure, and she is extremely anxious. Patient needs undergo a spinal surgery in the near future. She denies any chest pain or anginal symptoms. Her blood pressures at home are better controlled on diltiazem, but her palpitations are worse after coming off beta-shorty. In our office her blood pressure is 136/87 and pulse of 76 and regular. Physical exam demonstrates moderate obesity, clear lungs bilaterally, 2+ carotid upstroke, no carotid bruits, regular rate and rhythm, normal S1/S2, no S3 or S4, no edema noted.. EKG dated 12/24/2022 shows normal sinus rhythm, normal axis, normal intervals, minimal criteria for LVH, no previous myocardial infarction noted. Lipids are pending. Review of Systems Constitutional: no fever, no chills, no weakness, no fatigue Respiratory: no shortness of breath, no cough, no orthopnea, no wheezing Cardiovascular: no chest pain, no palpitations, no edema Neuro: no dizziness no light headed no syncope Additional ROS info: Except as noted in the above Review of Systems and in the History of Present Illness all other systems have been reviewed and are negative or noncontributory. Physical Exam General: alert, no acute distress Neck: Supple, noJVD nocarotid bruit Cardiovascular: regular rate and rhythm, no murmur normal peripheral perfusion Respiratory: Lungs CTA, respirations non labored Extremities: no edema Neurological: oriented x 4, LOC appropriate for age, sensation equal & normal bilaterally, speech normal Skin: Warm, dry, intact- no rash or concerning lesions Assessment/Plan 1. Palpitations: Patient's palpitations are worse with diltiazem but her blood pressure is improved. I have offered the patient the option of adding back her beta-shorty to her calcium channel shorty, or adding a diuretic water pill for the diastolic hypertension but she wishes to proceed with therapeutic lifestyle changes and exercise to improve her blood pressure, heart rate, palpitations and generalized feeling of wellbeing. I believe this is reasonable, and I have recommended that she start an exercise program. Her stress test is negative and she does not require cardiac catheterization at this time. She is at low risk for noncardiac surgery. 2. Return to office with Dr. Madera in 3 months. Follow-up No qualifying data available Problem List/Past Medical History Ongoing Anxiety BMI 40.0-44.9, adult Butterfly rash Chronic bilateral low back pain Chronic insomnia Diffuse arthralgia Fibromyalgia GERD (gastroesophageal reflux disease) Hypervitaminosis D Medication management Moderate recurrent major depression Morbid obesity Other specified hypothyroidism Overactive bladder Panic attack Resistance to insulin Smoker Symptomatic PVCs (more content not included)... Normal [facility] Comment on above: Result Comment: Elec tronically Signed By: SANTY PELAYO, Franklyn Arias\.br\Date and Time Signed: 01/27/23 13:54 EDT Physician Orderon 01-27-2023 Physician Order [id number]:127 Normal [facility] Stress EKG Tracingson 2022 Stress EKG Tracings [id number]:127 Normal [facility] Ambulatory Visit Summaryon 0 01-26-2023 Ambulatory Visit Summary CATARINO LUPE M :1975 Visit Date:01/26/2023 Ambulatory Visit Instructions Your Diagnosis Anxiety Screen for colon cancer Your Care Team Attending Physician - TAVO HARRIS CNP Primary Care Physician - Diony Singh DO This Is Your Medications List acetaminophen (Tylenol) alprazolam (alprazolam 0.5 mg Tab) aspirin (aspirin 81 mg oral capsule) baclofen (baclofen 20 mg Tab) calcium-vitamin D (calcium (as carbonate)-vitamin D 500 mg-200 intl units oral tablet) cholecalciferol (Vitamin D3 2000 intl units oral Tab) clonidine (cloNIDine 0.1 mg tab) diltiazem (diltiazem CD 240 mg/24 hours Cap-ER) fluconazole (Diflucan 150 mg Tab) levothyroxine (Synthroid 125 mcg (0.125 mg) Tab) lubiprostone (lubiprostone 24 mcg Cap) magnesium oxide melatonin multivitamin (Multi Vitamin+) tramadol (traMADol 100 mg oral tablet) Procedures Performed Injection of therapeutic substance into bladder wall (12/14/2021), Injection of therapeutic substance into bladder wall (01/07/2020), Injection of therapeutic substance into bladder wall (04/25/2017), robotic surgery converted to laparoscopic bilateral salpingectomy (11/27/2014), Lumbar epidural steroid injection (06/14/2013), Radiofrequency ablation of nerve root of lumbar spine using fluoroscopic guidance (01/04/2013), Injection into facet joint of lumbar spine using fluoroscopic guidance (12/14/2012), Injection into facet joint of lumbar spine using fluoroscopic guidance (11/16/2012), Lumbar Selective Nerve Root Block (07/28/2012), Lumbar Selective Nerve Root Block (06/23/2012), Cystourethroscopy with dilation of urethral stricture (04/26/2011), section, essure procedure, LEEP procedure of cervix, Thyroidectomy. Discharge Vitals Heart Rate (Peripheral) 82 Blood Pressure 140/70 Height 170 cm Height 67 in Weight 122 kg Weight 268.4 lb BMI 42.21 What to do next Scheduled Follow-Up Appointments 2022 1:15 PM EDT With: SANTY PELAYO, Franklyn Arias Where: Cardiology Clinic Tuesday 8:30 AM EDT With: ALLYSSA TREJO PA-C Where: [facility] Invalid Interpretation Code [address] [place] [address]-\.br\ Tuesday 1:00 PM EDT \.br\ With:\.br\ Where: [facility] Patient Educationon 01-27-20 23 Patient Education Mental and Behaviora Health Mindfulness-Based Stress Reduction Mindfulness-based stress reduction (MBSR) is a program that helps people learn to practice mindfulness. Mindfulness is the practice of consciously paying attention to the present moment. MBSR focuses on developing self-awareness, which lets you respond to life stress without judgment or negative feelings. It can be learned and practiced through techniques such as education, breathing exercises, meditation, and yoga. MBSR includes several mindfulness techniques in one program. MBSR works best when you understand the treatment, are willing to try new things, and can commit to spending time practicing what you learn. MBSR training may include learning about: ? How your feelings, thoughts, and reactions affect your body. ? New ways to respond to things that cause negative thoughts to start (triggers). ? How to notice your thoughts and let go of them. ? Practicing awareness of everyday things that you normally do without thinking. ? The techniques and goals of different types of meditation. What are the benefits of MBSR? MBSR can have many benefits, which include helping you to: ? Develop self-awareness. This means knowing and understanding yourself. ? Learn skills and attitudes that help you to take part in your own health care. ? Learn new ways to care for yourself. ? Be more accepting about how things are, and let things go. ? Be less judgmental and approach things with an open mind. ? Be patient with yourself and trust yourself more. MBSR has also been shown to: ? Reduce negative emotions, such as sadness, overwhelm, and worry. ? Improve memory and focus. ? Change how you sense and react to pain. ? Boost your body's ability to fight infections. ? Help you connect better with other people. ? Improve your sense of well-being. How to practice mindfulness To do a basic awareness exercise: ? Find a comfortable place to sit. ? Pay attention to the present moment. Notice your thoughts, feelings, and surroundings just as they are. ? Avoid judging yourself, your feelings, or your surroundings. Make note of any judgment that comes up and let it go. ? Your mind may wander, and that is okay. Make note of when your thoughts drift, and return your attention to the present moment. To do basic mindfulness meditation: ? Find a comfortable place to sit. This may include a stable chair or a firm floor cushion. ? Sit upright with your back straight. Let your arms fall next to your sides, with your hands resting on your legs. ? If you are sitting in a chair, rest your feet flat on the floor. ? If you are sitting on a cushion, cross your legs in front of you. ? Keep your head in a neutral position with your chin dropped slightly. Relax your jaw and rest the tip of your tongue on the roof of your mouth. Drop your gaze to the floor or close your eyes. ? Breathe normally and pay attention to your breath. Feel the air moving in and out of your nose. Feel your belly expanding and relaxing with each breath. ? Your mind may wander, and that is okay. Make note of when your thoughts drift, and return your attention to your breath. ? Avoid judging yourself, your feelings, or your surroundings. Make note of any judgment or feelings that come up, let them go, and bring your attention back to your breath. ? When you are ready, lift your gaze or open your eyes. Pay attention to how your body feels after the meditation. Follow these instructions at home: ? Find a local in-person or online MBSR program. ? Set aside some time regularly for mindfulness practice. Practice every day if you can. Even 10 minutes of practice is helpful. ? Find a mindfulness practice that works best for you. This may include one or more of the following: ? Meditation. This involves focusing your mind on a certain thought or activity. ? Breathing awareness exercises. These help you to stay present by focusing on your breath. ? Body scan. For this practice, you lie down and pay attention to each part of your body from head to toe. You can identify tension and soreness and consciously relax parts of your body. ? Yoga. Yoga involves stretching and breathing, and it can improve your ability to move and be flexible. It can also help you to test your body's limits, which can help you release stress. ? Mindful eating. This way of eating involves focusing on the taste, texture, color, and smell of each bite of food. This slows down eating and helps you feel full sooner. For this reason, it can be an important part of a weight loss plan. ? Find a podcast or recording that provides guidance for breathing awareness, body scan, or meditation exercises. You can listen to these any time when you have a free moment to rest without distractions. ? Follow your treatment plan as told by your health care provider. This may include taking regular medicines and making changes to your diet or l (more content not included)... Normal [facility] US venous duplex LE LTon US venous duplex LE LT [facility] Main [place] [id number] Ultrasound Report Signed Patient: Lupe Pickard MR#: [id number] : 1975 Acct:[id number] Age/Sex: 47 / F ADM Date: 01/24/23 Loc: ER Room: Type: [facility] ER Attending Dr: Ordering Provider: Yogi Mcgraw DO Date of Service: 01/24/23 US/US venous duplex LE LT: r/o DVT Copies to: Yogi Mcgraw DO LEFT LOWER EXTREMITY VENOUS DUPLEX INDICATION: Left leg pain and tenderness. Recent long flight from [place]. Unilateral left lower extremity venous duplex Doppler study was obtained utilizing B-mode, color- flow and spectral Doppler. FINDINGS: The left common femoral, femoral, and popliteal veins showed adequate compressibility, color-flow and augmentation. The left posterior tibial and peroneal veins were compressible, as well as proximal greater saphenous vein. The contralateral right common femoral vein was compressible with color-flow and augmentation. US/US venous duplex [facility] IMPRESSION: NO EVIDENCE OF DEEP VENOUS THROMBOSIS IN THE LEFT LOWER EXTREMITY. NO SUPERFICIAL THROMBOPHLEBITIS WAS NOTED. Impression dictated by: Yogi Redding MD01/25/2023 10:05 AM Dictation Location: [place] [address] Tech: Linda Andrew Transcribed By: BOB 01/25/23 1005 Dictated By: Yogi Redding MD 01/25/23 1004 Signed By: 01/25/23 1005 Normal [facility] Activated partial thrombopla stin time (aPTT) in platelet poor plasma by coagulation aOrdered By: Laz Ramirez on 01-24-2023 aPTT Coag (PPP) [Time] 29.9 s 25.1-36.5 [facility] B-Type Natriuretic Peptideon 01-24-2023 Natriuretic peptide B (Bld) [Mass/Vol] 37.0 pg/mL Normal 5-100 [facility] Comment on above: Result Comment: PERF ORMED BY: [facility] [address] [address] PATHOLOGIST D[employer]EL AUTOMOTIVE TECHNICIAN WENDY CLARK M.D. Performed By: #### C BC, PT, DDIMER, HS TROP, BMP, BNP, PTT, CK ####[place] [id number] [place] [id number] [facility] Basic Metabolic Panelon 12-29 Anion gap [Moles/Vol] 8.8 mmol/L Normal 6.0-15.0 [facility] Comment on above: Performed By: #### C BC, PT, DDIMER, HS TROP, BMP, BNP, PTT, CK ####[place] [id number] [address] Calcium [Mass/Vol] 8.7 mg/dL Normal 8.6-10.[address] [facility] Comment on above: Performed By: #### C BC, PT, DDIMER, HS TROP, BMP, BNP, PTT, CK ####[place] [id number] [facility] Chloride [Moles/Vol] 105 mmol/L Normal 98-107 [facility] Comment on above: Performed By: #### C BC, PT, DDIMER, HS TROP, BMP, BNP, PTT, CK ####[place] [id number] [facility] CO2 [Moles/Vol] 29.0 mmol/L Normal 21.0-31.0 [facility] Comment on above: Performed By: #### C BC, PT, DDIMER, HS TROP, BMP, BNP, PTT, CK ####[place] [id number] [facility] Creatinine [Mass/Vol] 0.57 mg/dL Low 0.60-1.20 [facility] Comment on above: Performed By: #### C BC, PT, DDIMER, HS TROP, BMP, BNP, PTT, CK ####[place] [id number] [facility] Creatinine Clr Calc Pharmacy 169.33 [facility] Comment on above: Result Comment: PERF ORMED BY: [facility] [address] [place] [address] PATHOLOGIST D[employer]EL AUTOMOTIVE TECHNICIAN WENDY CLARK M.D. Performed By: #### C BC, PT, DDIMER, HS TROP, BMP, BNP, PTT, CK ####[place] [id number] [place] [id number] [facility] GFR/1.73 sq M.predicted MDRD (S/P/Bld) [Vol rate/Area] mL/min/{1.73_m2} [facility] Comment on above: Performed By: #### C BC, PT, DDIMER, HS TROP, BMP, BNP, PTT, CK ####[place] [id number] [address] Glucose [Mass/Vol] 110 mg/dL High 70-[address] [facility] Comment on above: Result Comment: [place] Glucose Reference Range is dependent on time and content of last meal. Glucose of more than 200 mg/dL in a nonstressed, ambulatory subject supports the diagnosis of Diabetes Mellitus. ADA recommended reference range Performed By: #### C BC, PT, DDIMER, HS TROP, BMP, BNP, PTT, CK ####[address] Potassium [Moles/Vol] 3.8 mmol/L Normal 3.5-5.1 [facility] Comment on above: Performed By: #### C BC, PT, DDIMER, HS TROP, BMP, BNP, PTT, CK ####[place] [id number] [facility] Sodium [Moles/Vol] 139 mmol/L Normal 136-[address] [facility] Comment on above: Performed By: #### C BC, PT, DDIMER, HS TROP, BMP, BNP, PTT, CK ####[place] [id number] [facility] Urea nitrogen [Mass/Vol] 7 mg/dL Normal 7-25 [facility] Comment on above: Performed By: #### C BC, PT, DDIMER, HS TROP, BMP, BNP, PTT, CK ####[facility] [id number] [place] [address] [facility] Basophils Auto (Bld) [#/Vol] Ordered By: Laz Ramirez on 01-24-2023 Basophils (Bld) [#/Vol] 0.1 10*3/uL 0.0-0.2 [facility] Basophils/100 WBC Auto (Bld) Ordered By: Laz Ramirez on 01-24-2023 Basophils/100 WBC (Bld) 0.7 % . F [facility] Bilirubin Test strip Ql (U)O rdered By: Laz Ramirez on 01-24-2023 Bilirubin Ql (U) Negative Negative [facility] Calcium [Mass/volume] in Ser um or PlasmaOrdered By: Laz Ramirez on 01-24-2023 Calcium [Mass/Vol] 8.7 mg/dL 8.6-10.[address] [facility] Carbon dioxide, total [Moles /volume] in Serum or PlasmaOrdered By: Laz Ramirez on 01-24-2023 CO2 [Moles/Vol] 29.0 mmol/L 21.0-31.0 [facility] Chloride [Moles/volume] in S zakia or PlasmaOrdered By: Laz Ramirez on 01-24-2023 Chloride [Moles/Vol] 105 mmol/L 98-107 [facility] Color Auto (U)Ordered By: Elsa Ramirez on 01-24-2023 Color (U) Yellow Yellow [facility] Complete Blood Count Auto Di ffon 01-24-2023 Basophils (Bld) [#/Vol] 0.1 10*3/uL Normal 0.0-0.2 [facility] Comment on above: Result Comment: PERF ORMED BY: [facility] [address] [place] [address] PATHOLOGIST D[employer]EL AUTOMOTIVE TECHNICIAN WENDY CLARK M.D. Performed By: #### C BC, PT, DDIMER, HS TROP, BMP, BNP, PTT, CK ####[facility] [address] [place] [address] [facility] Basophils/100 WBC (Bld) 0.7 % Normal . F [facility] Comment on above: Performed By: #### C BC, PT, DDIMER, HS TROP, BMP, BNP, PTT, CK ####[address] Eosinophils (Bld) [#/Vol] 0.1 10*3/uL Normal 0.0-0.45 [facility] Comment on above: Performed By: #### C BC, PT, DDIMER, HS TROP, BMP, BNP, PTT, CK ####[address] Eosinophils/100 WBC (Bld) 1.6 % Normal . [facility] Comment on above: Performed By: #### C BC, PT, DDIMER, HS TROP, BMP, BNP, PTT, CK ####[address] Erythrocyte distribution wid th (RBC) [Ratio] 14.5 % Normal 11.9-15.3 [facility] Comment on above: Performed By: #### C BC, PT, DDIMER, HS TROP, BMP, BNP, PTT, CK ####[address] Hematocrit (Bld) [Volume fraction] 39.8 % Normal 34.0-46.4 [facility] Comment on above: Performed By: #### C BC, PT, DDIMER, HS TROP, BMP, BNP, PTT, CK ####[address] Hemoglobin (Bld) [Mass/Vol] 13.2 g/dL Normal 11.8-15. 4 [facility] Comment on above: Performed By: #### C BC, PT, DDIMER, HS TROP, BMP, BNP, PTT, CK ####[address] Lymphocytes (Bld) [#/Vol] 2.0 10*3/uL Normal 1.00-4.8 [facility] Comment on above: Performed By: #### C BC, PT, DDIMER, HS TROP, BMP, BNP, PTT, CK ####[address] Lymphocytes/100 WBC (Bld) 26.6 % Normal . [facility] Comment on above: Performed By: #### C BC, PT, DDIMER, HS TROP, BMP, BNP, PTT, CK ####[address] MCH (RBC) [Entitic mass] 28.8 pg Normal 24.7-34.3 [facility] Comment on above: Performed By: #### C BC, PT, DDIMER, HS TROP, BMP, BNP, PTT, CK ####[address] MCV (RBC) [Entitic vol] 86.8 fL Normal 80-100 F [facility] Comment on above: Performed By: #### C BC, PT, DDIMER, HS TROP, BMP, BNP, PTT, CK ####[address] Mean Corpuscular HGB Conc 33.1 g/dL Normal 32.0-35.0 [facility] Comment on above: Performed By: #### C BC, PT, DDIMER, HS TROP, BMP, BNP, PTT, CK ####[address] Monocytes (Bld) [#/Vol] 0.2 10*3/uL Normal 0.0-0.8 [facility] Comment on above: Performed By: #### C BC, PT, DDIMER, HS TROP, BMP, BNP, PTT, CK ####[address] Monocytes/100 WBC (Bld) 16.72 % Normal 0.00-20.00 F [facility] Comment on above: Performed By: #### C BC, PT, DDIMER, HS TROP, BMP, BNP, PTT, CK ####[address] Monocytes/100 WBC (Bld) 2.7 % Normal . [facility] Comment on above: Performed By: #### C BC, PT, DDIMER, HS TROP, BMP, BNP, PTT, CK ####[address] Neutrophils (Bld) [#/Vol] 5.2 10*3/uL Normal 1.8-7.7 [facility] Comment on above: Performed By: #### C BC, PT, DDIMER, HS TROP, BMP, BNP, PTT, CK ####[address] Neutrophils/100 WBC (Bld) 68.4 % Normal . [facility] Comment on above: Performed By: #### C BC, PT, DDIMER, HS TROP, BMP, BNP, PTT, CK ####[address] NRBC% 0.1 /100{WBC} Normal 0-0.5 [facility] Comment on above: Performed By: #### C BC, PT, DDIMER, HS TROP, BMP, BNP, PTT, CK ####[address] Platelet mean volume (Bld) [Entitic vol] 8.2 fL Normal 6.3-10.7 [facility] Comment on above: Performed By: #### C BC, PT, DDIMER, HS TROP, BMP, BNP, PTT, CK ####[address] Platelets (Bld) [#/Vol] 350 10*3/uL Normal 150-450 [facility] Comment on above: Performed By: #### C BC, PT, DDIMER, HS TROP, BMP, BNP, PTT, CK ####[address] RBC (Bld) [#/Vol] 4.59 10*6/uL Normal 3.60-5.[address] [facility] Comment on above: Performed By: #### C BC, PT, DDIMER, HS TROP, BMP, BNP, PTT, CK ####[place] [address] [place] [address] [facility] WBC (Bld) [#/Vol] 7.6 10*3/uL Normal 3.8-11.[address] [facility] Comment on above: Performed By: #### C BC, PT, DDIMER, HS TROP, BMP, BNP, PTT, CK ####[facility] [place] [address] [facility] Creatine Kinaseon 01-24-2023 CK [Catalytic activity/Vol] 55 U/L Normal [facility] Comment on above: Performed By: #### C BC, PT, DDIMER, HS TROP, BMP, BNP, PTT, CK ####[place] [id number] [place] [address] [facility] Creatine kinase [Enzymatic a ctivity/volume] in Serum or PlasmaOrdered By: Laz Ramirez on 01-24-2023 CK [Catalytic activity/Vol] 55 U/L [facility] Creatinine [Mass/volume] in Serum or PlasmaOrdered By: Laz Ramirez on 01-24-2023 Creatinine [Mass/Vol] 0.57 mg/dL 0.60-1.20 [facility] D-Dimer High Sensitivityon 0 01-24-2023 D-Dimer High Sensitivity < 200 Normal 0-243 [facility] Comment on above: Result Comment: The reference range for D-dimer is <243 ng/mL D-dimer units. D-dimer results must be used in conjunction with a clinical pretest probability (PTP) assessment model for deep vein thrombosis (DVT) and pulmonary embolism (PE). Results <230 ng/mL d-dimer units can be used as a negative predictor in patients with low or moderate probability for DVT/PE. Results above the exclusion threshold of 230 ng/ml D-dimer units for DVT/PE may indicate the need for further diagnostic testing. D-Dimer can be increased in hospitalized patients due to co-morbid conditions. PERFORMED BY: [facility] [address] [place] [id number] PATHOLOGIST DIESEL AUTOMOTIVE TECHNICIAN WENDY CLARK M.D. Performed By: #### C BC, PT, DDIMER, HS TROP, BMP, BNP, PTT, CK ####[facility] [id number] [place] [id number] [facility] ECG 12 lead ECGon 01-24-2023 ECG 12 lead ECG [facility] [address] [place] [address] [place] [address] Electrocardiograph Report Signed Patient: Lupe Pickard MR#: [id number] : 1975 Acct:[id number] Age/Sex: 47 / F ADM Date: 01/24/23 Loc: ER Room: Type: [facility] ER Attending Dr: Ordering Provider: Laz Ramirez MD Date of Service: 01/24/23 ECG/ECG 12 lead ECG: Shortness of Breath/Dyspnea Copies to: Test Reason : Blood Pressure : 182/087 mmHG Vent. Rate : 080 BPM Atrial Rate : 080 BPM P-R Int : 140 ms QRS Dur : 072 ms QT Int : 390 ms P-R-T Axes : 039 -22 019 degrees QTc Int : 449 ms Normal sinus rhythm nonspecific ST changes Confirmed by Yogi Mcgraw DO ([id number]) on 01/24/2023 7:22:27 PM Referred By: Electronically Signed By:Yogi Mcgraw DO Transcribed By: MUS Signed By Yogi Mcgraw DO 1921 Normal [facility] ED Note-Physicianon 01-25-20 ED Note-Physician [id number]#[id number]:127 Normal [facility] Eosinophils Auto (Bld) [#/Vo l]Ordered By: Laz Ramirez on 01-24-2023 Eosinophils (Bld) [#/Vol] 0.1 10*3/uL 0.0-0.45 [facility] Eosinophils/100 WBC Auto (Bl d)Ordered By: Laz Ramirez on 01-24-2023 Eosinophils/100 WBC (Bld) 1.6 % . [facility] Erythrocyte distribution wid th Auto (RBC) [Ratio]Ordered By: Laz Ramirez on 01-24-2023 Erythrocyte distribution wid th (RBC) [Ratio] 14.5 % 11.9-15.3 [facility] Glucose [Mass/volume] in Ser um or PlasmaOrdered By: Laz Ramirez on 01-24-2023 Glucose [Mass/Vol] 110 mg/dL 70-[address] [facility] Comment on above: ADA recommended refe rence rangeRandom Glucose Reference Range is dependent on time and content of last meal. Glucose of more than 200 mg/dL in a nonstressed, ambulatory subject supports the diagnosis of Diabetes Mellitus. Hematocrit Auto (Bld) [Volum e fraction]Ordered By: Laz Ramirez on 01-24-2023 Hematocrit (Bld) [Volume fraction] 39.8 % 3 4.0-46.4 [facility] Hemoglobin [Mass/volume] in BloodOrdered By: Laz Ramirez on 01-24-2023 Hemoglobin (Bld) [Mass/Vol] 13.2 g/dL 11.8-15. 4 [facility] INR in Platelet poor plasma by Coagulation assayOrdered By: Laz Ramirez on 01-24-2023 INR Coag (PPP) [Relative time] 1.0 {INR} [facility] Comment on above: INR Therapeutic Rang e A) Pre- and Peroperative OAT started two weeks before surgery. NOT HIP SURGERY: 1.5 - 2.5 HIP SURGERY: 2 - 3B) Primary and secondary prevention of venous THROMBOSIS: 2 - 3C) Active venous thrombosis, pulmonary embolismand prevention of recurrent venous thrombosis: 2 - 3D) Prevention of arterial thromboembolismincluding patients with mechanical heart valves: 3 - 4.5 Ketones Auto test strip (U) [Mass/Vol]Ordered By: Laz Ramirez on 01-24-2023 Ketones (U) [Mass/Vol] Negative Negative [facility] Lab Reportson 01-24-2023 Lab Reports [id number]#[id number] :127 Normal [facility] Laboratory - CoagulationOrde red By: Laz Ramirez on 01-24-2023 PT Coag (PPP) [Time] 11.5 s 9.0-12.9 [facility] Leukocytes [#/volume] correc emily for nucleated erythrocytes in Blood by Automated counOrdered By: Laz Ramirez on 01-24-2023 WBC corrected for nucl RBC A uto (Bld) [#/Vol] 7.6 10*3/uL 3.8-11.6 [facility] Lymphocytes Auto (Bld) [#/Vo l]Ordered By: Laz Ramirez on 01-24-2023 Lymphocytes (Bld) [#/Vol] 2.0 10*3/uL 1.00-4.8 [facility] Lymphocytes/100 WBC Auto (Bl d)Ordered By: Laz Ramirez on 01-24-2023 Lymphocytes/100 WBC (Bld) 26.6 % . [facility] MCH Auto (RBC) [Entitic mass ]Ordered By: Laz Ramirez on 01-24-2023 MCH (RBC) [Entitic mass] 28.8 pg 24.7-34.3 [facility] MCHC Auto (RBC) [Mass/Vol]Or dered By: Laz Ramirez on 01-24-2023 MCHC (RBC) [Mass/Vol] 33.1 g/dL 32.0-35.0 [facility] MCV Auto (RBC) [Entitic vol] Ordered By: Laz Ramirez on 01-24-2023 MCV (RBC) [Entitic vol] 86.8 fL 80-100 [facility] Monocyte distribution width [Entitic volume] in Blood by AutomatedOrdered By: Laz Ramirez on 01-24-2023 Monocyte distribution width Auto (Bld) [Entitic vol] 16.72 % 0.00-20.00 [facility] Monocytes Auto (Bld) [#/Vol] Ordered By: Laz Ramirez on 01-24-2023 Monocytes (Bld) [#/Vol] 0.2 10*3/uL 0.0-0.8 [facility] Monocytes/100 WBC Auto (Bld) Ordered By: Laz Ramirez on 01-24-2023 Monocytes/100 WBC (Bld) 2.7 % . F [facility] Natriuretic peptide B [Mass/ Vol]Ordered By: Laz Ramirez on 01-24-2023 Natriuretic peptide B (Bld) [Mass/Vol] 37.0 pg/mL 5-100 [facility] Neutrophils Auto (Bld) [#/Vo l]Ordered By: Laz Ramirez on 01-24-2023 Neutrophils (Bld) [#/Vol] 5.2 10*3/uL 1.8-7.7 [facility] Neutrophils/100 WBC Auto (Bl d)Ordered By: Laz Ramirez on 01-24-2023 Neutrophils/100 WBC (Bld) 68.4 % . [facility] Nitrite Test strip Ql (U)Ord ered By: Lza Ramirez on 01-24-2023 Nitrite Ql (U) Negative Negative [facility] No Panel InformationOrdered By: Laz Ramirez on 01-24-2023 D-Dimer Quantitative (PE/DVT) < 200 ng/mL 0-243 [facility] Comment on above: The reference range for D-dimer is <243 ng/mL D-dimer units.D- dimer results must be used in conjunction with a clinicalpretest probability (PTP) assessment model for deep veinthrombosis (DVT) and pulmonary embolism (PE). Results <230ng/mL d-dimer units can be used as a negative predictor inpatients with low or moderate probability for DVT/PE.Results above the exclusion threshold of 230 ng/ml D- dimerunits for DVT/PE may indicate the need for furtherdiagnostic testing.D-Dimer can be increased in hospitalized patients due toco-morbid conditions. Estimated GFR (CKD-EPI) > 60.0 mL/Min [facility] Creatinine Clearanc e (Chem 169.33 [facility] Nucleated erythrocytes [Pres ence] in Blood by Automated countOrdered By: Laz Ramirez on 01-24-2023 Nucleated RBC Auto Ql (Bld) 0.1 /100{WBC} 0-0.5 [facility] Outside Labson 01-24-2023 Outside Labs [id number] CD:127 Normal [facility] Partial Thromboplastin Timeo n 01-24-2023 aPTT Coag (Bld) [Time] 29.9 s Normal 25.1-36.5 [facility] Comment on above: Performed By: #### C BC, PT, DDIMER, HS TROP, BMP, BNP, PTT, CK ####[facility] [id number] [place] [address] [facility] Platelet mean volume Auto (B ld) [Entitic vol]Ordered By: Laz Ramirez on 01-24-2023 Platelet mean volume (Bld) [Entitic vol] 8.2 fL 6.3-10.7 [facility] Platelets Auto (Bld) [#/Vol] Ordered By: Laz Ramirez on 01-24-2023 Platelets (Bld) [#/Vol] 350 10*3/uL 150-450 [facility] Potassium [Moles/volume] in Serum or PlasmaOrdered By: Laz Ramirez on 01-24-2023 Potassium [Moles/Vol] 3.8 mmol/L 3.5-5.1 [facility] Protein Auto test strip (U) [Mass/Vol]Ordered By: Laz Ramirez on 01-24-2023 Protein (U) [Mass/Vol] Negative Negative [facility] Prothrombin Time INRon 01-24 INR Coag (PPP) [Relative time] 1.0 {INR} Normal [facility] Comment on above: Result Comment: INR Therapeutic Range A) Pre- and Peroperative OAT started two weeks before surgery. NOT HIP SURGERY: 1.5 - 2.5 HIP SURGERY: 2 - 3 B) Primary and secondary prevention of venous THROMBOSIS: 2 - 3 C) Active venous thrombosis, pulmonary embolism and prevention of recurrent venous thrombosis: 2 - 3 D) Prevention of arterial thromboembolism including patients with mechanical heart valves: 3 - 4.5 Performed By: #### C BC, PT, DDIMER, HS TROP, BMP, BNP, PTT, CK ####[facility] [id number] PT Coag (PPP) [Time] 11.5 s Normal 9.0-12.9 [facility] Comment on above: Performed By: #### C BC, PT, DDIMER, HS TROP, BMP, BNP, PTT, CK ####[facility] [id number] RBC Auto (Bld) [#/Vol]Ordere d By: Laz Ramirez on 01-24-2023 RBC (Bld) [#/Vol] 4.59 10*6/uL 3.60-5.[address] [facility] Serum or plasma anion gap de terminationOrdered By: Laz Ramirez on 01-24-2023 Anion gap [Moles/Vol] 8.8 mmol/L 6.0-15.0 [facility] Sodium [Moles/volume] in Ser um or PlasmaOrdered By: Laz Ramirez on 01-24-2023 Sodium [Moles/Vol] 139 mmol/L 136-[address] [facility] Specific gravity Auto test s trip (U) [Rel density]Ordered By: Laz Ramirez on 01-24-2023 Specific gravity (U) [Rel density] 1.004 1.001-1.030 [facility] Troponin I High Sensitivityo n 01-24-2023 Troponin I High Sensitivity < 2.3 Normal 0.0-15.0 [facility] Comment on above: Result Comment: PERF ORMED BY: [facility] [address] [place] [address] PATHOLOGIST D[employer]EL AUTOMOTIVE TECHNICIAN WENDY CLARK M.D. Performed By: #### C BC, PT, DDIMER, HS TROP, BMP, BNP, PTT, CK ####[facility] [id number] Troponin I.cardiac [Mass/vol ume] in Serum or Plasma by Detection limit <= 0.01 ng/Ordered By: Laz Ramirez on 01-24-2023 Troponin I.cardiac DL <= 0.0 1 ng/mL [Mass/Vol] < 2.3 pg/mL 0.0-15.0 [facility] Urea nitrogen [Mass/volume] in Serum or PlasmaOrdered By: Laz Ramirez on 01-24-2023 Urea nitrogen [Mass/Vol] 7 mg/dL 7-25 [facility] Urinalysison 01-24-2023 Appearance (U) Clear Normal Clear [facility] Comment on above: Order Comment: Name Collection Type:: Clean-Voided Midstream Performed By: #### U A #### [facility] [address] [place] [address] [place] Bilirubin,Urine Negative Normal Negative [facility] Comment on above: Order Comment: Name Collection Type:: Clean-Voided Midstream Performed By: #### U A #### [facility] [address] [place] [id number] [place] Color (U) Yellow Normal Yellow [facility] Comment on above: Order Comment: Name Collection Type:: Clean-Voided Midstream Performed By: #### U A #### [address] Glucose Ql (U) Normal Normal Normal [facility] Comment on above: Order Comment: Name Collection Type:: Clean-Voided Midstream Performed By: #### U A #### [address] Ketones Ql (U) Negative Normal Negative [facility] Comment on above: Order Comment: Name Collection Type:: Clean-Voided Midstream Performed By: #### U A #### [address] Leukocyte esterase Test stri p Ql (U) Negative Normal Negative [facility] Comment on above: Order Comment: Name Collection Type:: Clean-Voided Midstream Performed By: #### U A #### [place] [address] [place] Nitrite,Urine Negative Normal Negative [facility] Comment on above: Order Comment: Name Collection Type:: Clean-Voided Midstream Performed By: #### U A #### [place] [address] [place] Occult Blood,Urine Negative Normal Negative [facility] Comment on above: Order Comment: Name Collection Type:: Clean-Voided Midstream Result Comment: PERF ORMED BY: [place] [address] PATHOLOGIST DIESEL AUTOMOTIVE TECHNICIAN WENDY CLARK M.D. Performed By: #### U A #### [facility] [address] [place] [address] [place] pH (U) 7.0 [pH] Normal 5.0-9.[address] [facility] Comment on above: Order Comment: Name Collection Type:: Clean-Voided Midstream Performed By: #### U A #### [place] [address] [place] Protein,Urine Negative Normal Negative [facility] Comment on above: Order Comment: Name Collection Type:: Clean-Voided Midstream Performed By: #### U A #### [facility] [address] Specificy [place],Urine 1.004 Normal 1.001-1.030 [facility] Comment on above: Order Comment: Name Collection Type:: Clean-Voided Midstream Performed By: #### U A #### [facility] [address] [place] [address] [place] Urobilinogen,Urine Normal Normal Normal [facility] Comment on above: Order Comment: Name Collection Type:: Clean-Voided Midstream Performed By: #### U A #### [facility] [address] [place] [address] [place] Urine clarity by refractomet ry automatedOrdered By: Laz Ramirez on 01-24-2023 Clarity Refractometry automated (U) Clear Clear [facility] Urine glucose measurement by automated test strip (mass/volume)Ordered By: Laz Ramirez on 01-24-2023 Glucose Auto test strip (U) [Mass/Vol] Normal mg/dL Normal [facility] Urine hemoglobin detection b y automated test stripOrdered By: Laz Ramirez on 01-24-2023 Hemoglobin Auto test strip Ql (U) Negative Ne gative [facility] Urine leukocyte esterase det ection by automated test stripOrdered By: Laz Ramirez on 01-24-2023 Leukocyte esterase Auto test strip Ql (U) Negative Negative [facility] Urobilinogen Auto test strip (U) [Mass/Vol]Ordered By: Laz Ramirez on 01-24-2023 Urobilinogen (U) [Mass/Vol] Normal mg/dL Normal [facility] WBC Auto (Bld) [#/Vol]Ordere d By: Laz Ramirez on 01-24-2023 WBC (Bld) [#/Vol] 7.6 10*3/uL 3.8-11.[address] [facility] XR chest 1V portableon 01-24 XR chest 1V portable [facility] [place] [address] [place] [address] XRay Report Signed Patient: Lupe Pickard MR#: [id number] : 1975 Acct:[id number] Age/Sex: 47 / F ADM Date: 01/24/23 Loc: ER Room: Type: [facility] ER Attending Dr: Copies to: MD Yogi Gill DO Ordering Provider: Laz Ramirez MD Date of Service: 01/24/23 XR/XR chest 1V portable: Shortness of Breath/Dyspnea SINGLE VIEW CHEST CLINICAL HISTORY: Elevated blood pressure, shortness of breath getting worse heart palpitations COMPARISON: Chest 12/30/2022 FINDINGS: Heart normal size. Lungs are clear. No free air. XR/XR chest 1V portable IMPRESSION: NO ACUTE FINDINGS Impression dictated by: Bbo Neff Jr., D.OJaycee01/24/2023 10:55 AM Dictation Location: [place] [address] Transcribed By: BOB 01/24/23 105 Dictated By: Bob Neff Jr, DO 01/24/23 1055 Signed By: 01/24/23 1055 Normal [facility] pH Auto test strip (U)Ordere d By: Laz Ramirez on 01-24-2023 pH (U) 7.0 [pH] 5.0-9.[address] [facility] Basic Metabolic Panelon 12-29 Anion gap [Moles/Vol] 10.1 mmol/L Normal 6.0-15.0 [facility] Comment on above: Performed By: #### B MP, TSH3, [id number] ####[facility] [id number] [place] [address] [facility] Calcium [Mass/Vol] 9.1 mg/dL Normal 8.6-10.[address] [facility] Comment on above: Performed By: #### B MP, TSH3, [id number] ####[facility] [id number] [place] [address] [facility] Chloride [Moles/Vol] 105 mmol/L Normal 98-107 [facility] Comment on above: Performed By: #### B MP, TSH3, [id number] ####[facility] [id number] [place] [address] [facility] CO2 [Moles/Vol] 28.2 mmol/L Normal 21.0-31.0 [facility] Comment on above: Performed By: #### B JOSLYN, TSH3, [id number] ####[place] [address] [place] [address] [facility] Creatinine [Mass/Vol] 0.52 mg/dL Low 0.60-1.20 [facility] Comment on above: Performed By: #### B JOSLYN, TSH3, [id number] ####[address] [address] [place] GFR/1.73 sq M.predicted MDRD (S/P/Bld) [Vol rate/Area] mL/min/{1.73_m2} Normal [facility] Comment on above: Performed By: #### B JOSLYN, TSH3, [id number] ####[address] [address] [facility] Glucose [Mass/Vol] 84 mg/dL Normal 70-[address] [facility] Comment on above: Result Comment: [place] Glucose Reference Range is dependent on time and content of last meal. Glucose of more than 200 mg/dL in a nonstressed, ambulatory subject supports the diagnosis of Diabetes Mellitus. ADA recommended reference range Performed By: #### B JOSLYN, TSH3, [id number] ####[place] [address] [place] [address] [facility] Potassium [Moles/Vol] 4.3 mmol/L Normal 3.5-5.1 [facility] Comment on above: Performed By: #### B JOSLYN, TSH3, [id number] ####[address] [address] [facility] Sodium [Moles/Vol] 139 mmol/L Normal 136-[address] [facility] Comment on above: Performed By: #### B JOSLYN, TSH3, [id number] ####[place] [address] [place] [address] [facility] Urea nitrogen [Mass/Vol] 8 mg/dL Normal 7-25 [facility] Comment on above: Performed By: #### B MP, TSH3, [id number] ####[facility] [place] [address] [facility] Calcium [Mass/volume] in Ser um or PlasmaOrdered By: Phillip Benjamin on 01-21-2023 Calcium [Mass/Vol] 9.1 mg/dL 8.6-10.[address] [facility] Carbon dioxide, total [Moles /volume] in Serum or PlasmaOrdered By: Phillip Benjamin on 01-21-2023 CO2 [Moles/Vol] 28.2 mmol/L 21.0-31.0 [facility] Chloride [Moles/volume] in S zakia or PlasmaOrdered By: Phillip Benjamin on 01-21-2023 Chloride [Moles/Vol] 105 mmol/L 98-107 [facility] Cholesterol [Mass/volume] in Serum or PlasmaOrdered By: Franklyn Madera on 01-21-2023 Cholesterol [Mass/Vol] 153 mg/dL 140-200 [facility] Comment on above: Chol less than 200 m g/dl low riskChol 201-239 mg/dl borderline riskChol 240 mg/dl and greater high risk Cholesterol in LDL Calc [Mas s/Vol]Ordered By: Franklyn Madera on 01-21-2023 Cholesterol in LDL [Mass/Vol] 60 mg/dL 0-100 [facility] Comment on above: LDL ATP III CLASSIFI CATIONLDL less than 100 mg/dL OptimalLDL 100-129 mg/dL Near or above optimalLDL 130-159 mg/dL Borderline highLDL 160-189 mg/dL HighLDL greater than 189 mg/dL Very high Cholesterol in VLDL Calc [Ma ss/Vol]Ordered By: Franklyn Madera on 01-21-2023 Cholesterol in VLDL [Mass/Vol] 50 mg/dL [facility] Consent for Treatmenton 12-29 Consent for Treatment [id number]#1.00CD:127 Normal [facility] Creatinine [Mass/volume] in Serum or PlasmaOrdered By: Phillip Benjamin on 01-21-2023 Creatinine [Mass/Vol] 0.52 mg/dL 0.60-1.20 [facility] Glucose [Mass/volume] in Ser um or PlasmaOrdered By: Phillip Benjamin on 01-21-2023 Glucose [Mass/Vol] 84 mg/dL 70-[address] [facility] Comment on above: ADA recommended refe rence rangeRandom Glucose Reference Range is dependent on time and content of last meal. Glucose of more than 200 mg/dL in a nonstressed, ambulatory subject supports the diagnosis of Diabetes Mellitus. Lipid Panelon 01-21-2023 Cholesterol [Mass/Vol] 153 mg/dL Normal 140-200 [facility] Comment on above: Result Comment: Chol less than 200 mg/dl low risk Chol 201-239 mg/dl borderline risk Chol 240 mg/dl and greater high risk Performed By: #### L IPID ####[place] [address] [place] [address] [facility] Cholesterol in HDL [Mass/Vol] 42 mg/dL Normal 23-92 [facility] Comment on above: Result Comment: HDL CHOL ATP-III CLASSIFICATION Cardiovascular Risk HDL > or equal to 60 mg/dL LOW HDL < 40 mg/dL HIGH Performed By: #### L IPID ####[place] [address] [place] [address] [facility] Cholesterol.total/Cholestero l in HDL [Mass ratio] 3.6 {ratio} Normal <5.0 [facility] Comment on above: Result Comment: PERF ORMED BY: [facility] [address] [place] [id number] PATHOLOGIST DIESEL AUTOMOTIVE TECHNICIAN WENDY CLARK M.D. Performed By: #### L IPID ####[place] [address] [place] [address] [facility] LDL Cholesterol,Calculated 60 mg/dL Normal 0-100 [facility] Comment on above: Result Comment: LDL ATP III CLASSIFICATION LDL less than 100 mg/dL Optimal LDL 100-129 mg/dL Near or above optimal LDL 130-159 mg/dL Borderline high LDL 160-189 mg/dL High LDL greater than 189 mg/dL Very high Performed By: #### L IPID ####[place] [address] [place] [address] [facility] Triglyceride w/Reflex 254 mg/dL High 0-149 [facility] Comment on above: Result Comment: TRIG ATP III CLASSIFICATION TRIG less than 150 mg/dL Normal TRIG 150-199 mg/dL Borderline high TRIG 200-500 mg/dL High TRIG greater than 500 mg/dL Very high Standard traceable to the Center for Disease Conrtrol and Prevention (CDC) test method. Performed By: #### L IPID ####[facility] [id number] [place] [address] [facility] VLDL CHOLESTEROL 50 mg/dL Normal [facility] Comment on above: Performed By: #### L IPID ####[facility] [id number] [place] [address] [facility] No Panel InformationOrdered By: Phillip Benjamin on 01-21-2023 Estimated GFR (CKD-EPI) > 60.0 mL/Min [facility] Creatinine Clearanc e (Chem N/A [facility] No Panel Informationon 01-21 > 60.0 Normal [facility] [place] [address] DO Work Phone: 10.1\S\10.1 Normal 6.0-15.0 [facility] DO Work Phone: 9.1\S\9.1 Normal 8.6-10.3 [facility] Work Phone: 28.2\S\28.2 Normal 21.0-31.0 [facility] DO Work Phone: 105\S\105 Normal 98-107 [facility] DO Work Phone: 4.3\S\4.3 Normal 3.5-5.1 [facility] DO Work Phone: 139\S\139 Normal 136-145 [facility] DO Work Phone: 0.52\S\0.52 below low threshold 0.60-1.20 [facility] 600 DO Work Phone: 8\S\8 Normal 7-25 -[facility] 600 DO Work Phone: 84\S\84 Normal 70-100 [place] [address] DO Work Phone: Comment on above: Random Glucose Refer ence Range is dependent on time and content of last meal. Glucose of more than 200 mg/dL in a nonstressed, ambulatory subject supports the diagnosis of Diabetes Mellitus. ADA recommended reference range 0.24\S\0.24 below low threshold 0.45-5.33 [place] [address] DO Work Phone: 41.7\S\41.7 Normal 30-100 [facility] 600 DO Work Phone: Comment on above: VITAMIN D STATUS 25( [place])VITAMIN D RANGE (ng/mL) Deficient <20 Insufficient 20 to <30 Sufficient 30 to 100 Reference: Kirby MF,Adonay NC, Shantelle MONTANO, et al. Evaluation,treatment, and prevention of vitamin D deficiency; an Endocrine Society clinical practice guideline. JCEM. 2010; 96(7):1911-30.PERFORMED BY:[place] [id number] [place], [place] [id number] MEDICAL DIRECTORWENDY CLARK M.D. Potassium [Moles/volume] in Serum or PlasmaOrdered By: Phillip Benjamin on 01-21-2023 Potassium [Moles/Vol] 4.3 mmol/L 3.5-5.1 [facility] Serum or plasma anion gap de terminationOrdered By: Phillip Benjamin on 01-21-2023 Anion gap [Moles/Vol] 10.1 mmol/L 6.0-15.0 [facility] Serum or plasma high density lipoprotein (HDL) cholesterol measurementOrdered By: Franklyn Madera on 01-21-2023 Cholesterol in HDL [Mass/Vol] 42 mg/dL 23-92 [facility] Comment on above: HDL CHOL ATP-III CLA SSIFICATION Cardiovascular RiskHDL > or equal to 60 mg/dL LOWHDL < 40 mg/dL HIGH Serum or plasma total choles terol/high density lipoprotein (HDL) cholesterol mass ratOrdered By: Franklyn Madera on 01-21-2023 Cholesterol.total/Cholestero l in HDL [Mass ratio] 3.6 {ratio} <5.0 [facility] Sodium [Moles/volume] in Ser um or PlasmaOrdered By: Phillip Benjamin on 01-21-2023 Sodium [Moles/Vol] 139 mmol/L 136-[address] [facility] Thyroid Stimulating Hormoneo n 01-21-2023 TSH Qn 0.24 m[IU]/L Low 0.45-5.33 [facility] Comment on above: Performed By: #### B MP, TSH3, [id number] ####[facility] [id number] [place] [id number] [facility] Thyrotropin [Units/volume] i n Serum or PlasmaOrdered By: Phillip Benjamin on 01-21-2023 TSH Qn 0.24 m[IU]/L 0.45-5.33 [facility] Triglyceride [Mass/volume] i n Serum or PlasmaOrdered By: Franklyn Madera on 01-21-2023 Triglyceride [Mass/Vol] 254 mg/dL 0-149 [facility] Comment on above: TRIG ATP III CLASSIF ICATIONTRIG less than 150 mg/dL NormalTRIG 150-199 mg/dL Borderline highTRIG 200-500 mg/dL High TRIG greater than 500 mg/dL Very highStandard traceable to the Center for Disease Conrtrol and Prevention (CDC) test method. Urea nitrogen [Mass/volume] in Serum or PlasmaOrdered By: Phillip Benjamin on 01-21-2023 Urea nitrogen [Mass/Vol] 8 mg/dL 7-25 [facility] Vitamin D 25 Hydroxy Totalon 01-21-2023 Vitamin D 25 Hydroxy Total 41.7 ng/mL Normal 30-100 [facility] Comment on above: Result Comment: QASIM MIN D STATUS 25([place])VITAMIN D RANGE (ng/mL) Deficient <20 Insufficient 20 to <30 Sufficient 30 to 100 Reference: Adonay Espinosa, Shantelle MONTANO, et al. Evaluation,treatment, and prevention of vitamin D deficiency; an Endocrine Society clinical practice guideline. JCEM. 2010; 96(7):1911-. PERFORMED BY: [facility] [address] [place] [address] PATHOLOGIST DIESEL AUTOMOTIVE TECHNICIAN WENDY CLARK M.D. Performed By: #### B MP, TSH3, [id number] ####[facility] [id number] [place] [address] [facility] Vitamin D+Metabolites [Mass/ volume] in Serum or PlasmaOrdered By: Phillip Benjamin on 01-21-2023 Vitamin D+Metabolites [Mass/Vol] 41.7 ng/mL 30- 100 [facility] Comment on above: VITAMIN D STATUS 25( [place])VITAMIN D RANGE (ng/mL) Deficient <20 Insufficient 20 to <30Sufficient 30 to 100Reference: Kirby GALVAN,Adonay INMAN, Shantelle MONTANO, et al. Evaluation,treatment, and prevention of vitamin D deficiency; an Endocrine Society clinical practice guideline. JCEM. 2010; 96(7):1911-30. Consenton 01-19-2023 Consent [id number]#1.00C D:127 [facility] Patient Eval Forms Officeon 01-19-2023 Patient Eval Forms Office [id number]#1.00CD:127 [facility] Patient Eval Forms Office [id number]#1.00CD:127 [facility] Consent for Treatmenton 12-29 Consent for Treatment [id number]#1.00CD:127 [facility] Discharge Instructionson Discharge Instructions [id number]#1.00CD:127 [facility] Consent for Treatmenton Consent for Treatment [id number]#1.00CD:127 Normal [facility] Consent for Treatment [id number]#1.00CD:127 Normal [facility] ED Clinical Summaryon 2022 ED Clinical Summary (Inserted Image. Reyna ble to display) [place] [id number] ED Clinical Summary Person Information Name: LUPE PICKARD [facility] Age: 47 Years : 1975 Sex: Female Language: Sammarinese PCP: Diony Singh DO Marital Status: Single Phone: [phone] Visit Id: Visit Reason: Lower leg pain-swelling; Hypertension; HIGH BLOOD PRESSURE/ LT LEG SWELLING W/ PULSATING SENSATION Speciality: Acuity: 3 Enc Type: Emergency Med Service: Emergency Arrival: 01/05/2023 16:19:27 Discharge: 01/05/2023 17:56:00 LOS: 000 01:37 Checkin: 01/05/2023 16:19:27 Checkout: 01/05/2023 17:56:00 Dispo Type: Home (Routine DC) EVENTS: Event Name Event Status Request Date/Time Start Date/Time Complete Date/Time Arrive Complete 01/05/2023 16:19:27 01/05/2023 16:19:27 01/05/2023 16:19:27 Document Home Meds Request 01/05/2023 16:19:27 Triage Complete 01/05/2023 16:19:27 01/05/2023 16:34:13 01/05/2023 16:34:13 Dr Exam Complete 01/05/2023 16:25:54 01/05/2023 16:25:54 01/05/2023 16:25:54 Registration Complete 01/05/2023 16:25:54 01/05/2023 16:28:35 01/05/2023 16:51:44 Bed Assign Complete 01/05/2023 16:28:35 01/05/2023 16:28:35 01/05/2023 16:28:35 RN Exam Complete 01/05/2023 16:28:35 01/05/2023 17:05:00 01/05/2023 17:05:00 Dr Exam Complete 01/05/2023 16:32:05 01/05/2023 16:32:05 01/05/2023 16:32:05 EKG Complete 01/05/2023 16:33:58 01/05/2023 16:37:50 Reg Complete Request 01/05/2023 16:51:44 Reg Bed Request Complete 01/05/2023 16:51:44 01/05/2023 16:51:44 01/05/2023 16:51:44 US Complete 01/05/2023 17:01:44 01/05/2023 17:09:32 01/05/2023 17:54:13 Discharge Complete 01/05/2023 17:46:22 01/05/2023 17:57:33 01/05/2023 17:57:33 Transfer Complete 01/05/2023 17:57:33 01/05/2023 17:57:33 01/05/2023 17:57:33 ADDRESS: [address] [facility] [id number] [facility] DOC NOTES: MEDICAL INFORMATION: Prescriptions Given: Medications to Continue with No Changes Other Medications alprazolam (alprazolam 0.5 mg Tab) 1 Tablets By Mouth every day. 30 days. Refills: 2. calcium-vitamin D (calcium (as carbonate)-vitamin D 500 mg-200 intl units oral tablet) 1 Tablets By Mouth 2 times a day. Refills: 5. cholecalciferol (Vitamin D3 2000 intl units oral Tab) 50 Microgram By Mouth every day. Refills: 2. clonidine (cloNIDine 0.1 mg tab) 1 Tablets By Mouth every day as needed Other (see comment). Take 1 tablet by mouth daily As Needed for hypertensive emergency. Refills: 5. diltiazem (diltiazem CD 180 mg/24 hours Cap-ER) 1 Capsules By Mouth every day. Refills: 5. fluconazole (Diflucan 150 mg Tab) 1 Tablets By Mouth every 7 days. Refills: 0. levothyroxine (Synthroid 125 mcg (0.125 mg) Tab) TAKE 1 TABLET BY MOUTH DAILY IN THE MORNING ON AN EMPTY STOMACH. lubiprostone (lubiprostone 24 mcg Cap) 1 Capsules By Mouth 2 times a day. Refills: 5. magnesium oxide 400 Milligram By Mouth 2 times a day. tramadol (traMADol 100 mg oral tablet) 1 Tablets By Mouth 3 times a day. PATIENT EDUCATION INFORMATION: Instructions: Paresthesia; Leg Cramps Follow up: With: Address: When: Diony Singh [address], [place] [address] In 3 days 01/08/2023 Comments: Call the office of your primary care doctor to arrange for follow-up within the above-stated timeframe. Follow-up with your primary care doctor about this ED visit. You should review your labs, imaging, and diagnoses from this ED visit with your primary care physician. If you were prescribed medications you should discuss possible side-effects and drug interactions with your pharmacist. Call 911 or go to the nearest Emergency Department if you develop any new or worsening symptoms. DIAGNOSIS: Lower extremity pain, bilateral; Pain in left leg Normal [facility] ED Note-Physicianon 01-06-20 ED Note-Physician Basic Information Time Seen: Sergei Hurd PA-C 01/05/2023 16:25 Chief Complaint pt c/o having blood pressure issues, pt was seen at [facility] and she did have an elevated ddimer and had a cta of her chest. pt is supposed to have an us of both legs tomorrow but has had throbbing in both legs, heavy feeling in calf. History of Present Illness 47-year-old female presents ED with complaint of lower extremity pain, concern for DVT. Patient has been seen multiple times at [facility] over the last month with concern for palpitations. Patient is also had alterations in her blood pressure, alternating hypertension with normal range blood pressure which she is found very concerning. Patient was recently started on blood pressure medications which have been being adjusted by her PCP as well. Patient was seen last week at [facility] As part of this workup for palpitations, she did have a D-dimer drawn. Due to slightly elevated D-dimer, patient did have a CTA of the chest performed without any finding concerning for PE. Patient reports that she followed up with her PCP, who due to her elevated D-dimer, ordered her bilateral duplex ultrasound which is scheduled for tomorrow. Patient reports that this afternoon, she began to have bilateral leg cramping and sensation of heaviness. Patient is very concerned that she might have a PE at this time. Patient denying any ongoing palpitations, does complain that her blood pressure has been up and down over the day. Patient denies any chest pain or shortness of breath. Patient denies any headache. Patient denies any injury. Patient does endorse some paresthesias of her left foot. Patient does endorse a history of anxiety, fibromyalgia, hypertension, reports to be generally otherwise healthy. Review of Systems Full 10 system ROS performed. Pt denies symptoms except as noted above in the HPI. Physical Exam Vitals & Measurements T: 37.0 ?C(Oral) HR: 79(Monitored) RR: 18 BP: 123/77 SpO2: 98% HT: 170 cm WT: 120.5 kg BMI: 41.7 VITALS: I have reviewed the triage vital signs. GENERAL: Well developed, well appearing adult in no acute distress. NEURO: Alert and oriented. Moves all extremities. Face is symmetric and expressive. EYES: PERRL. No scleral icterus or conjunctival injection. No discharge. HENT: Normocephalic, atraumatic. Hearing is grossly intact. Nares grossly patent and without discharge. Mucous membranes moist. NECK: No JVD. Patient moves neck without restriction. CARDIO: Rhythm regular. Normal rate. No murmur, rub, or gallop. Pulses equal bilaterally in the upper and lower extremity. No lower extremity edema. PULM: Lungs clear to auscultation in all sagastume. No wheezes, rales, or rhonchi. No conversational dyspnea. No splinting, stridor, or accessory muscle use. GI/: Abdomen is soft and non-tender. Normoactive bowel sounds. EXTREMITIES: Symmetric muscle bulk. No joint swelling. No clubbing, cyanosis, or deformity. SKIN: Warm and dry. Normal turgor. No rash or lesions appreciated. PSYCH: Mood, affect, and interaction is appropriate to the setting. Medical Decision Making MEDICAL DECISION MAKING Number and Complexity of Problems Differential Diagnosis: [] [facility] Data External documents reviewed: [] My EKG interpretation: [] My CT interpretation: [] My X-ray interpretation: [] My Ultrasound interpretation: Negative bilateral LE duplex ultrasound. Decision rules/scores evaluated: [] Discussed with: [] Treatment and Disposition ED Course: Patient presents ED with complaint of lower leg pain and heaviness in the context of known elevated D-dimer. Duplex was performed which was negative. I discussed these findings with patient. Patient does admit to me that she has a high level anxiety, the possibility of blood clot was discussed with her, and she may have overreacted to her symptoms. I did instruct patient to follow-up with her PCP. Return precautions to ED were discussed. Patient questions answered. Patient discharged home. Shared decision making: [] Code status: [] Assessment/Plan Lower extremity pain, bilateral (M79.604: Pain in right leg) Pain in left leg (M79.605: Pain in left leg) Orders: US LE Venous Duplex Bilateral Disposition Plan Patient Discharge Condition Stable Discharge Disposition To home Discharge Prescription List Prescriptions No active prescription medications Follow-up With When Contact Information Diony Singh In 3 days 01/08/2023 EDT [address] [place] [address] [place] [address]- Additional Instructions: Call the office of your primary care doctor to arrange for follow-up within the above-stated timeframe. Follow-up with your primary care doctor about this ED visit. You should review your labs, imaging, and diagnoses from this ED visit with your primary care physician. If you were prescribed medications you should discuss possible side-effects and drug interactions with your pharmacist. Call 911 or go to the nearest Emergency (more content not included)... Normal [facility] Comment on above: Result Comment: Elec tronically Signed By: Sergei Hurd PA-C\.br\Date and Time Signed: 01/05/23 18:00 EDT\.br\Electronically Co-Signed By: Christiano Solis M.D.\.br\Date and Time Co-Signed: 01/05/23 18:36 EDT ED Patient Education Noteon 01-05-2023 ED Patient Education Note Neurology Paresthesia Paresthesia is an abnormal burning or prickling sensation. It is usually felt in the hands, arms, legs, or feet. However, it may occur in any part of the body. Usually, paresthesia is not painful. It may feel like: ? Tingling or numbness. ? Buzzing. ? Itching. Paresthesia may occur without any clear cause, or it may be caused by: ? Breathing too quickly (hyperventilation). ? Pressure on a nerve. ? An underlying medical condition. ? Side effects of a medicine. ? Nutritional deficiencies. ? Exposure to toxic chemicals. Most people experience temporary (transient) paresthesia at some time in their lives. For some people, it may be long-lasting (chronic) because of an underlying medical condition. If you have paresthesia that lasts a long time, you need to be evaluated by your health care provider. Follow these instructions at home: Nutrition Eat a healthy diet. This includes: ? Eating foods that are high in fiber, such as beans, whole grains, and fresh fruits and vegetables. ? Limiting foods that are high in fat and processed sugars, such as fried or sweet foods. Alcohol use ? Avoid or limit alcohol. Too much alcohol can cause a vitamin B deficiency, and vitamin B is needed for healthy nerves. ? Do not drink alcohol if: ? Your health care provider tells you not to drink. ? You are , may be , or are planning to become . ? If you drink alcohol: ? Limit how much you have to: ? 0?1 drink a day for women. ? 0?2 drinks a day for men. ? Know how much alcohol is in your drink. In the [place] one drink equals one 12 oz bottle of beer (355 mL), one 5 oz glass of wine (148 mL), or one 1? oz glass of hard liquor (44 mL). General instructions ? Take blil-sbr-xgydbvd and prescription medicines only as told by your health care provider. ? Do not use any products that contain nicotine or tobacco. These products include cigarettes, chewing tobacco, and vaping devices, such as e-cigarettes. If you need help quitting, ask your health care provider. ? If you have diabetes, work closely with your health care provider to keep your blood sugar under control. ? If you have numbness in your feet: ? Check every day for signs of injury or infection. Watch for redness, warmth, and swelling. ? Wear padded socks and comfortable shoes. These help protect your feet. ? Keep all follow-up visits. This is important. Contact a health care provider if you: ? Have paresthesia that gets worse or does not go away. ? Have numbness after an injury. ? Have a burning or prickling feeling that gets worse when you walk. ? Have pain, cramps, or dizziness, or you faint. ? Develop a rash. Get help right away if you: ? Feel muscle weakness. ? Develop new weakness in an arm or leg. ? Have trouble walking or moving. ? Have problems with speech, understanding, or vision. ? Feel confused. ? Cannot control your bladder or bowel movements. These symptoms may be an emergency. Get help right away. Call 911. ? Do not wait to see if the symptoms will go away. ? Do not drive yourself to the hospital. Summary ? Paresthesia is an abnormal burning or prickling sensation that is usually felt in the hands, arms, legs, or feet. It may also occur in other parts of the body. ? Paresthesia may occur without any clear cause, or it may be caused by breathing too quickly (hyperventilation), pressure on a nerve, an underlying medical condition, side effects of a medicine, nutritional deficiencies, or exposure to toxic chemicals. ? If you have paresthesia that lasts a long time, you need to be evaluated by your health care provider. This information is not intended to replace advice given to you by your health care provider. Make sure you discuss any questions you have with your health care provider. Document Revised: 01/25/2022 Document Reviewed: 01/25/2022 [employer] Patient Education ? 2022 [employer] Orthopedics Leg Cramps Leg cramps occur when one or more muscles tighten and a person has no control over it (involuntary muscle contraction). Muscle cramps are most common in the calf muscles of the leg. They can occur during exercise or at rest. Leg cramps are painful, and they may last for a few seconds to a few minutes. Cramps may return several times before they finally stop. Usually, leg cramps are not caused by a serious medical problem. In many cases, the cause is not known. Some common causes include: ? Excessive physical effort (overexertion), such as during intense exercise. ? Doing the same motion over and over. ? Staying in a certain position for a long period of time. ? Improper preparation, form, or technique while doing a sport or an activity. ? Dehydration. ? Injury. ? Side effects of certain medicines. ? Abnormally low levels of minerals in your blood (electrolytes), especially potassium and calcium. This coul (more content not included)... Normal [facility] ED Patient Summaryon 023 ED Patient Summary (Inserted Image. Reyna ble to display) [address] [address] Patient Discharge Instructions Person Information Name: LUPE PICKARD Age: 47 Years Arrival Date: 01/05/2023 16:19:27 Discharge Diagnosis: Lower extremity pain, bilateral; Pain in left leg Primary Care Physician: Diony Singh DO Provider Information Primary Provider: Christiano Solis M.D. Advanced Property Controller:Sergei Hurd PA-C The exam and treatment you received in the Emergency Department were for an urgent problem and are not intended as complete care. It is important that you follow up with a doctor, nurse practitioner, or physician?s equal opportunity assistant for ongoing care. If your symptoms become worse or you do not improve as expected and you are unable to reach your usual health care provider, you should return to the Emergency Department. We are available 24 hours a day. LUPE PICKARD has been given the following list of patient education materials, prescriptions and follow-up instructions: Follow-up Instructions: With: Address: When: Diony Singh [address] [place] [address] [place] [address] In 3 days 01/08/2023 Comments: Call the office of your primary care doctor to arrange for follow-up within the above-stated timeframe. Follow-up with your primary care doctor about this ED visit. You should review your labs, imaging, and diagnoses from this ED visit with your primary care physician. If you were prescribed medications you should discuss possible side-effects and drug interactions with your pharmacist. Call 911 or go to the nearest Emergency Department if you develop any new or worsening symptoms. In the event that this physician does not participate in your insurance network, please consult with your insurance company to find a nearby participating provider. Patient Education Materials: Paresthesia; Leg Cramps A MESSAGE TO ALL PATIENTS REGARDING OPIOIDS PRESCRIPTION OPIOIDS: WHAT YOU NEED TO KNOW Prescription opioids can be used to help relieve zoayktfx-tp-zpxyux pain and are often prescribed following a surgery or injury, or for certain health conditions. These medications can be an important part of the treatment but also come with serious risks. It is important to work with your healthcare provider to make sure you are getting the safest, most effective care. WHAT ARE THE RISKS AND SIDE EFFECTS OF OPIOID USE? Prescription opioids carry serious risks of addiction and overdose, especially with prolonged use. An opioid overdose, often marked by slowed breathing, can cause sudden . The use of prescription opioids can have a number of side effects as well, even when taken as directed: ? Tolerance?meaning you might need to take more of the medication for the same pain relief ? Physical dependence?meaning you have symptoms of withdrawal when a medication is stopped ? Increased sensitivity to pain ? Constipation ? Nausea, vomiting, and dry mouth ? Sleepiness and dizziness ? Confusion ? Depression ? Low levels of testosterone that can result in lower sex drive, energy, and strength ? Itching and sweating RISKS ARE GREATER WITH: ? History of drug misuse, substance use disorder, or overdose ? Mental health conditions (such as depression or anxiety) ? Sleep apnea ? Older age (65 years and older) ? Avoid alcohol while taking prescription opioids. Also, unless specifically advised by your health care provider, medications to avoid include: ? Benzodiazepines (such as Xanax or Valium) ? Muscle relaxants (such as Soma or Flexeril) ? Hypnotics (such as Ambien or Lunesta) ? Other prescription opioids KNOW YOUR OPTIONS Talk to your health care provider about ways to manage your pain that don?t involve prescription opioids. Some of these options may actually work better and have fewer risks and side effects. Options may include: ? Pain relievers such as acetaminophen, ibuprofen, and naproxen ? Some medication that are also used for depression or seizures ? Physical therapy and exercise ? Cognitive behavioral therapy, a psychological, goal-directed approach, in which patients learn how to modify physical, behavioral, and emotional triggers of pain and stress. IF YOU ARE PRESCRIBED OPIOIDS FOR PAIN: ? Never take opioids in greater amounts or more often than prescribed. ? Follow up with your primary health care provider. o Work together to create a plan on how to manage your pain. o Talk about ways to help manage your pain that don?t involve prescription opioids. o Talk about any and all concerns and side effects. ? Help prevent misuse and abuse o Never sell or share prescription opioids. o Never use another person?s prescription opioids. ? Store prescription opioids in a secure place and out of reach of others (this may include visitors, children, friends, and family). ? Safely dispose of u (more content not included)... Normal [facility] Magnesiumon 01-05-2023 Magnesium [Mass/Vol] 2.1 mg/dL Normal 1.3-2.4 [facility] Comment on above: Performed By: #### 2 [id number] ####[facility] [address] [place] [address] LE Venous Duplex Bilatera eriberto 01-05-2023 LE Venous Duplex Bilateral Exam Date/Time: 01/05/2023 17:54 EDT Reason for Exam: Elevated D-Dimer Report IMPRESSION: NO EVIDENCE OF VENOUS THROMBOSIS INVOLVING VISUALIZED DEEP VEINS OF THE BILATERAL LEGS. CLINICAL HISTORY: Hypertension. Bilateral leg swelling. Elevated d-dimer. TECHNIQUE: Zelaya scale with compression maneuvers, Color Doppler and Spectral Doppler at rest and with augmentation of the BILATERAL leg proximal deep veins as below. Martel scale with compression maneuvers of the peroneal and posterior tibial veins was performed. Images were obtained and stored in a permanent archive. COMPARISON: None. RESULT: RIGHT LEG: PROXIMAL DEEP VEINS: External iliac vein: Compressibility with spontaneous flow. Common Femoral Vein: Compressibility with spontaneous phasic flow and augmentation. Deep Femoral Vein: Compressibility with spontaneous phasic flow. Femoral Vein: Compressibility with spontaneous phasic flow and augmentation. Popliteal Vein: Compressibility with spontaneous phasic flow and augmentation. DEEP CALF VEINS: Posterior Tibial Vein: Normal compression Peroneal Vein: Normal compression SUPERFICIAL VEIN: Greater Saphenous Vein: Compressibility with spontaneous phasic flow. LEFT LEG: PROXIMAL DEEP VEINS: External iliac vein: Compressibility with spontaneous flow. Common Femoral Vein: Compressibility with spontaneous phasic flow and augmentation. Deep Femoral Vein: Compressibility with spontaneous phasic flow. Femoral Vein: Compressibility with spontaneous phasic flow and augmentation. Popliteal Vein: Compressibility with spontaneous phasic flow and augmentation. DEEP CALF VEINS: Posterior Tibial Vein: Normal compression Peroneal Vein: Normal compression Report SUPERFICIAL VEIN: Greater Saphenous Vein: Compressibility with spontaneous phasic flow. Ordering Provider: Sergei Hurd FINAL REPORT Dictated: 01/05/2023 5:56 pm Franklyn Butler MD Signed (Electronic Signature): 01/05/2023 5:56 pm Signed by: Franklyn Butler MD Transcribed by: MUSA Technologist: MACHO Normal [facility] Consent for Treatmenton -0 Consent for Treatment [id number]:127 Normal [facility] Physician Orderon 01-04-2023 Physician Order [id number]:127 Normal [facility] Progress Note-Nurseon 2022 Progress Note-Nurse [id number]:127 Normal [facility] CT head/brain wo conon 12-31 CT head/brain wo [facility] [place] [address] CT Scan Report Signed Patient: Lupe Pickard MR#: [id number] : 1975 Acct:[id number] Age/Sex: 47 / F ADM Date: 12/30/22 Loc: ER Room: Type: [facility] ER Attending Dr: Copies to: DO Aaron Arrington Jr, MD Ordering Provider: Aaron Sommers Jr, MD Date of Service: 12/30/22 CT/CT head/brain wo con: headache CT BRAIN WITHOUT CONTRAST: CLINICAL HISTORY: High blood pressure with headache chest pressure and tightness. Elevated d-dimer. COMPARISON: None TECHNIQUE: Contiguous axial unenhanced images were obtained through the brain. This CT exam was performed using one or more following dose reduction techniques: Automated exposure control, adjustment of the mA and/or kV according to patient size, or use of iterative reconstruction technique. Please note the previously given contrast for chest CTA is identified. FINDINGS: There is no evidence of midline shift, intra or extra-axial fluid collection, hemorrhage or CT evidence of stroke. Posterior fossa appears unremarkable. Visualized intraorbital contents demonstrate no acute findings. Visualized paranasal sinuses are clear. The surrounding soft tissues are normal. CT/CT head/brain wo con IMPRESSION: NO ACUTE INTRACRANIAL ABNORMALITY. Impression dictated by: Bob Neff Jr., D.O.12/31/2022 8:17 AM Dictation Location: [place] [address] Transcribed By: [facility] 12/31/22816 Dictated By: Bob Neff Jr, DO 12/31/22811 Signed By: 12/31/22816 Normal [facility] ED Note-Physicianon 01-01-20 ED Note-Physician [id number]:127 Normal [facility] Activated partial thrombopla stin time (aPTT) in platelet poor plasma by coagulation aOrdered By: Mariya Kumari on 12-30-2022 aPTT Coag (PPP) [Time] 30.5 s 25.1-36.5 [facility] B-Type Natriuretic Peptideon 12-30-2022 Natriuretic peptide B (Bld) [Mass/Vol] 55.0 pg/mL Normal 5-100 [facility] Comment on above: Result Comment: PERF ORMED BY: [facility] [address] [place] [id number] PATHOLOGIST D[employer]EL AUTOMOTIVE TECHNICIAN WENDY CLARK M.D. Performed By: #### P T, BMP, CBC, DDIMER, BNP, HS TROP, PTT ####[place] [id number] [place] [id number] [facility] Basic Metabolic Panelon 080 Anion gap [Moles/Vol] 11.7 mmol/L Normal 6.0-15.0 [facility] Comment on above: Performed By: #### P T, BMP, CBC, DDIMER, BNP, HS TROP, PTT ####[place] [address] [place] [id number] [facility] Calcium [Mass/Vol] 8.4 mg/dL Low 8.6-10.[address] [facility] Comment on above: Performed By: #### P T, BMP, CBC, DDIMER, BNP, HS TROP, PTT ####[facility] [place] [address] [facility] Chloride [Moles/Vol] 104 mmol/L Normal 98-107 [facility] Comment on above: Performed By: #### P T, BMP, CBC, DDIMER, BNP, HS TROP, PTT ####[place] [address] [place] [address] [facility] CO2 [Moles/Vol] 28.0 mmol/L Normal 21.0-31.0 [facility] Comment on above: Performed By: #### P T, BMP, CBC, DDIMER, BNP, HS TROP, PTT ####[place] [address] [place] [address] [facility] Creatinine [Mass/Vol] 0.56 mg/dL Low 0.60-1.20 [facility] Comment on above: Performed By: #### P T, BMP, CBC, DDIMER, BNP, HS TROP, PTT ####[place] [address] [place] [id number] [facility] Creatinine Clr Calc Pharmacy 171.83 Normal [facility] Comment on above: Result Comment: PERF ORMED BY: [facility] [address] [place] [address] PATHOLOGIST DIESEL AUTOMOTIVE TECHNICIAN WENDY CLARK M.D. Performed By: #### P T, BMP, CBC, DDIMER, BNP, HS TROP, PTT ####[place] [address] [place] [id number] [facility] GFR/1.73 sq M.predicted MDRD (S/P/Bld) [Vol rate/Area] mL/min/{1.73_m2} Normal [facility] Comment on above: Performed By: #### P T, BMP, CBC, DDIMER, BNP, HS TROP, PTT ####[place] [address] [place] [id number] [facility] Glucose [Mass/Vol] 87 mg/dL Normal 70-[address] [facility] Comment on above: Result Comment: [facility] Glucose Reference Range is dependent on time and content of last meal. Glucose of more than 200 mg/dL in a nonstressed, ambulatory subject supports the diagnosis of Diabetes Mellitus. ADA recommended reference range Performed By: #### P T, BMP, CBC, DDIMER, BNP, HS TROP, PTT ####[facility] Potassium [Moles/Vol] 3.7 mmol/L Normal 3.5-5.1 [facility] Comment on above: Performed By: #### P T, BMP, CBC, DDIMER, BNP, HS TROP, PTT ####[place] [address] [place] [id number] [facility] Sodium [Moles/Vol] 140 mmol/L Normal 136-[address] [facility] Comment on above: Performed By: #### P T, BMP, CBC, DDIMER, BNP, HS TROP, PTT ####[facility] Urea nitrogen [Mass/Vol] 7 mg/dL Normal 7-25 [facility] Comment on above: Performed By: #### P T, BMP, CBC, DDIMER, BNP, HS TROP, PTT ####[facility] Basophils Auto (Bld) [#/Vol] Ordered By: Mariya Kumari on 12-30-2022 Basophils (Bld) [#/Vol] 0.1 10*3/uL 0.0-0.2 [facility] Basophils/100 WBC Auto (Bld) Ordered By: Mariya Kumari on 12-30-2022 Basophils/100 WBC (Bld) 1.3 % . F [facility] [place] CT angio chest PE protocolon 12-30-2022 CT angio chest PE protocol [facility] [address] [place] [address] [place] [address] CT Scan Report Signed with Sara Patient: Lupe Pickard MR#: [id number] : 1975 Acct:[id number] Age/Sex: 47 / F ADM Date: 12/30/22 Loc: ER Room: Type: [facility] ER Attending Dr: Copies to: Mariya Kumari DO Ordering Provider: Mariya Kumari DO Date of Service: 12/30/22 CT/CT angio chest PE protocol: elevated D-dimer r/o PE ADDENDUM 1 Please disregard the first line in findings below. Lower neck: No supraclavicle adenopathy. Impression dictated by: Ernie Roper M.D.12/30/2022 9:28 PM Dictation Location: RADIO-PC-13 Addendum Dictated By: Ernie Roper II, MD Addendum Signed By: 12/30/222127 Addendum Cosigned By: DD/ /19/2126 TD/TT: 12/30/2208/20/2127 CT angio chest PE protocol 12/30/2022 7:39 PM SIGN AND SYMPTOMS: Hypotension, chest pressure, chest tightness CONTRAST: 90 mL of intravenous Isovue-370 TECHNIQUE: Multidetector CT axial slices of the chest were obtained with IV contrast. Multiplanar reformats were performed and viewed on a separate workstation and reviewed to further define anatomy and possible pathology. CT was performed with one or more of the following dose reduction techniques: Automated exposure control, adjustment of the mA and/or kV according to patient size, or use of iterative reconstruction technique. COMPARISON: 06/21/2022. FINDINGS: Lower neck: Thyroid gland within normal limits, no supraclavicle adenopathy. Vessels: Within normal limits. No atherosclerotic changes in the aorta. and coronary arteries. Mediastinum and Heavenly: Within normal limits. Heart: Normal size. No pericardial effusion. Airways: Within normal limits Lungs: Within normal limits. Pleura: Within normal limits. Chest Wall: There is redemonstration of a 1.5 cm asymmetry in the left breast which has been previously biopsied and shown to be benign. Upper Abdomen: Within normal limits. Bones: Degenerative changes are noted in the thoracic spine. CT/CT angio chest PE protocol IMPRESSION: No acute cardiac pulmonary pathology. There is no evidence of pulmonary embolism. Impression dictated by: Ernie Roper M.D.12/30/2022 8:08 PM Dictation Location: RADIO-PC-13 Transcribed By: [facility] 12/30/222007 Dictated By: Ernie Roper II, MD 12/30/222003 Signed By: 12/30/222007 [facility] Calcium [Mass/volume] in Ser um or PlasmaOrdered By: Mariya Kumari on 12-30-2022 Calcium [Mass/Vol] 8.4 mg/dL 8.6-10.[address] [facility] Carbon dioxide, total [Moles /volume] in Serum or PlasmaOrdered By: Mariya Kumari on 12-30-2022 CO2 [Moles/Vol] 28.0 mmol/L 21.0-31.0 [facility] Chloride [Moles/volume] in S zakia or PlasmaOrdered By: Mariya Kumari on 12-30-2022 Chloride [Moles/Vol] 104 mmol/L 98-107 [facility] Complete Blood Count Auto Di ffon 12-30-2022 Basophils (Bld) [#/Vol] 0.1 10*3/uL Normal 0.0-0.2 [facility] Comment on above: Result Comment: PERF ORMED BY: [facility] [address] [place] [address] PATHOLOGIST D[employer]EL AUTOMOTIVE TECHNICIAN WENDY CLARK M.D. Performed By: #### P T, BMP, CBC, DDIMER, BNP, HS TROP, PTT ####[address] Basophils/100 WBC (Bld) 1.3 % Normal . [facility] Comment on above: Performed By: #### P T, BMP, CBC, DDIMER, BNP, HS TROP, PTT ####[address] Eosinophils (Bld) [#/Vol] 0.1 10*3/uL Normal 0.0-0.45 [facility] Comment on above: Performed By: #### P T, BMP, CBC, DDIMER, BNP, HS TROP, PTT ####[address] Eosinophils/100 WBC (Bld) 1.5 % Normal . [facility] Comment on above: Performed By: #### P T, BMP, CBC, DDIMER, BNP, HS TROP, PTT ####[place] [id number] [place] Erythrocyte distribution wid th (RBC) [Ratio] 14.4 % Normal 11.9-15.3 [facility] [facility] Comment on above: Performed By: #### P T, BMP, CBC, DDIMER, BNP, HS TROP, PTT ####[address] Hematocrit (Bld) [Volume fraction] 40.1 % Normal 34.0-46.4 [facility] Comment on above: Performed By: #### P T, BMP, CBC, DDIMER, BNP, HS TROP, PTT ####[address] Hemoglobin (Bld) [Mass/Vol] 13.3 g/dL Normal 11.8-15. 4 [facility] Comment on above: Performed By: #### P T, BMP, CBC, DDIMER, BNP, HS TROP, PTT ####[address] Lymphocytes (Bld) [#/Vol] 3.2 10*3/uL Normal 1.00-4.8 [facility] Comment on above: Performed By: #### P T, BMP, CBC, DDIMER, BNP, HS TROP, PTT ####[address] Lymphocytes/100 WBC (Bld) 33.6 % Normal . [facility] Comment on above: Performed By: #### P T, BMP, CBC, DDIMER, BNP, HS TROP, PTT ####[address] MCH (RBC) [Entitic mass] 28.8 pg Normal 24.7-34.3 [facility] Comment on above: Performed By: #### P T, BMP, CBC, DDIMER, BNP, HS TROP, PTT ####[address] MCV (RBC) [Entitic vol] 87.2 fL Normal 80-100 [facility] Comment on above: Performed By: #### P T, BMP, CBC, DDIMER, BNP, HS TROP, PTT ####[place] [id number] [facility] Mean Corpuscular HGB Conc 33.1 g/dL Normal 32.0-35.0 [facility] Comment on above: Performed By: #### P T, BMP, CBC, DDIMER, BNP, HS TROP, PTT ####[address] Monocytes (Bld) [#/Vol] 0.4 10*3/uL Normal 0.0-0.8 [facility] Comment on above: Performed By: #### P T, BMP, CBC, DDIMER, BNP, HS TROP, PTT ####[address] Monocytes/100 WBC (Bld) 16.70 % Normal 0.00-20.00 [facility] Comment on above: Performed By: #### P T, BMP, CBC, DDIMER, BNP, HS TROP, PTT ####[address] Monocytes/100 WBC (Bld) 4.0 % Normal . [facility] Comment on above: Performed By: #### P T, BMP, CBC, DDIMER, BNP, HS TROP, PTT ####[place] [id number] [facility] Neutrophils (Bld) [#/Vol] 5.7 10*3/uL Normal 1.8-7.7 [facility] Comment on above: Performed By: #### P T, BMP, CBC, DDIMER, BNP, HS TROP, PTT ####[place] [id number] [facility] Neutrophils/100 WBC (Bld) 59.6 % Normal . [facility] Comment on above: Performed By: #### P T, BMP, CBC, DDIMER, BNP, HS TROP, PTT ####[place] [id number] [facility] NRBC% 0.1 /100{WBC} Normal 0-0.5 [facility] Comment on above: Performed By: #### P T, BMP, CBC, DDIMER, BNP, HS TROP, PTT ####[address] Platelet mean volume (Bld) [Entitic vol] 8.6 fL Normal 6.3-10.7 [facility] Comment on above: Performed By: #### P T, BMP, CBC, DDIMER, BNP, HS TROP, PTT ####[address] Platelets (Bld) [#/Vol] 348 10*3/uL Normal 150-450 [facility] Comment on above: Performed By: #### P T, BMP, CBC, DDIMER, BNP, HS TROP, PTT ####[address] RBC (Bld) [#/Vol] 4.60 10*6/uL Normal 3.60-5.[address] [facility] Comment on above: Performed By: #### P T, BMP, CBC, DDIMER, BNP, HS TROP, PTT ####[address] WBC (Bld) [#/Vol] 9.6 10*3/uL Normal 3.8-11.[address] [facility] Comment on above: Performed By: #### P T, BMP, CBC, DDIMER, BNP, HS TROP, PTT ####[address] Creatinine [Mass/volume] in Serum or PlasmaOrdered By: Mariya Kumari on 12-30-2022 Creatinine [Mass/Vol] 0.56 mg/dL 0.60-1.20 [facility] D-Dimer High Sensitivityon 0 12-30-2022 D-Dimer High Sensitivity 334 ng/mL High 0-243 [facility] Comment on above: Result Comment: The reference range for D-dimer is <243 ng/mL D-dimer units. D-dimer results must be used in conjunction with a clinical pretest probability (PTP) assessment model for deep vein thrombosis (DVT) and pulmonary embolism (PE). Results <230 ng/mL d-dimer units can be used as a negative predictor in patients with low or moderate probability for DVT/PE. Results above the exclusion threshold of 230 ng/ml D-dimer units for DVT/PE may indicate the need for further diagnostic testing. D-Dimer can be increased in hospitalized patients due to co-morbid conditions. PERFORMED BY: [place] [address] PATHOLOGIST [employer]EL AUTOMOTIVE TECHNICIAN WENDY CLARK M.D. Performed By: #### P T, BMP, CBC, DDIMER, BNP, HS TROP, PTT ####[facility] [id number] ECG 12 lead ECGon 12-30-2022 ECG 12 lead ECG [facility] [place] [address] [place] [address] Electrocardiograph Report Signed Patient: Lupe Pickard MR#: [id number] : 1975 Acct:[id number] Age/Sex: 47 / F ADM Date: 12/30/22 Loc: ER Room: Type: [facility] ER Attending Dr: Ordering Provider: Mariya Kumari DO Date of Service: 12/30/2208/20/1751 ECG/ECG 12 lead ECG: Recheck/Abnormal Lab/Rx Copies to: Test Reason : Blood Pressure : / mmHG Vent. Rate : 078 BPM Atrial Rate : 078 BPM P-R Int : 128 ms QRS Dur : 080 ms QT Int : 370 ms P-R-T Axes : 028 -18 -05 degrees QTc Int : 421 ms Normal sinus rhythm Moderate voltage criteria for LVH, may be normal variant Nonspecific ST abnormality Confirmed by Quoc JOHN DO ([id number]) on 12/31/2022 12:07:56 AM Referred By: Electronically Signed By:Quoc JOHN DO Transcribed By: MUS Signed By Quoc John DO 0 12/31/22 0007 Normal [facility] Eosinophils Auto (Bld) [#/Vo l]Ordered By: Mariya Kumari on 12-30-2022 Eosinophils (Bld) [#/Vol] 0.1 10*3/uL 0.0-0.45 [facility] Eosinophils/100 WBC Auto (Bl d)Ordered By: Mariya Kumari on 12-30-2022 Eosinophils/100 WBC (Bld) 1.5 % . [facility] Erythrocyte distribution wid th Auto (RBC) [Ratio]Ordered By: Mariya Kumari on 12-30-2022 Erythrocyte distribution wid th (RBC) [Ratio] 14.4 % 11.9-15.3 [facility] Glucose [Mass/volume] in Ser um or PlasmaOrdered By: Mariya Kumari on 12-30-2022 Glucose [Mass/Vol] 87 mg/dL 70-[address] [facility] Comment on above: ADA recommended refe rence rangeRandom Glucose Reference Range is dependent on time and content of last meal. Glucose of more than 200 mg/dL in a nonstressed, ambulatory subject supports the diagnosis of Diabetes Mellitus. Hematocrit Auto (Bld) [Volum e fraction]Ordered By: Mariya Kumari on 12-30-2022 Hematocrit (Bld) [Volume fraction] 40.1 % 3 4.0-46.4 [facility] Hemoglobin [Mass/volume] in BloodOrdered By: Mariya Kumari on 12-30-2022 Hemoglobin (Bld) [Mass/Vol] 13.3 g/dL 11.8-15. 4 [facility] Laboratory - CoagulationOrde red By: Mariya Kumari on 12-30-2022 PT Coag (PPP) [Time] 10.9 s 9.0-12.9 [facility] Leukocytes [#/volume] correc emily for nucleated erythrocytes in Blood by Automated counOrdered By: Mariya Kumari on 12-30-2022 WBC corrected for nucl RBC A uto (Bld) [#/Vol] 9.6 10*3/uL 3.8-11.6 [facility] Lymphocytes Auto (Bld) [#/Vo l]Ordered By: Mariya Kumari on 12-30-2022 Lymphocytes (Bld) [#/Vol] 3.2 10*3/uL 1.00-4.8 [facility] Lymphocytes/100 WBC Auto (Bl d)Ordered By: Mariya Kumari on 12-30-2022 Lymphocytes/100 WBC (Bld) 33.6 % . [facility] MCH Auto (RBC) [Entitic mass ]Ordered By: Mariya Kumari on 12-30-2022 MCH (RBC) [Entitic mass] 28.8 pg 24.7-34.3 [facility] MCHC Auto (RBC) [Mass/Vol]Or dered By: Mariya Kumari on 12-30-2022 MCHC (RBC) [Mass/Vol] 33.1 g/dL 32.0-35.0 [facility] MCV Auto (RBC) [Entitic vol] Ordered By: Mariya Kumari on 12-30-2022 MCV (RBC) [Entitic vol] 87.2 fL 80-100 [facility] Magnesiumon 12-30-2022 Magnesium [Mass/Vol] 1.9 mg/dL Normal 1.9-2.7 [facility] Comment on above: Result Comment: PERF ORMED BY: [facility] [address] [place] [address] PATHOLOGIST [employer] AUTOMOTIVE TECHNICIAN WENDY CLARK M.D. Performed By: #### M G ####[facility] [place] [address] [facility] Magnesium [Mass/volume] in S zakia or PlasmaOrdered By: Mariya Kumari on 12-30-2022 Magnesium [Mass/Vol] 1.9 mg/dL 1.9-2.7 [facility] Monocyte distribution width [Entitic volume] in Blood by AutomatedOrdered By: Mariya Kumari on 12-30-2022 Monocyte distribution width Auto (Bld) [Entitic vol] 16.70 % 0.00-20.00 [facility] Monocytes Auto (Bld) [#/Vol] Ordered By: Mariya Kumari on 12-30-2022 Monocytes (Bld) [#/Vol] 0.4 10*3/uL 0.0-0.8 [facility] Monocytes/100 WBC Auto (Bld) Ordered By: Mariya Kumari on 12-30-2022 Monocytes/100 WBC (Bld) 4.0 % . [facility] Natriuretic peptide B [Mass/ Vol]Ordered By: Mariya Kumari on 12-30-2022 Natriuretic peptide B (Bld) [Mass/Vol] 55.0 pg/mL 5-100 [facility] Neutrophils Auto (Bld) [#/Vo l]Ordered By: Mariya Kumari on 12-30-2022 Neutrophils (Bld) [#/Vol] 5.7 10*3/uL 1.8-7.7 [facility] Neutrophils/100 WBC Auto (Bl d)Ordered By: Mariya Kumari on 12-30-2022 Neutrophils/100 WBC (Bld) 59.6 % . [facility] No Panel InformationOrdered By: Mariya Kumari on 12-30-2022 D-Dimer Quantitative (PE/DVT) 334 ng/mL 0-243 [facility] Comment on above: The reference range for D-dimer is <243 ng/mL D-dimer units.D- dimer results must be used in conjunction with a clinicalpretest probability (PTP) assessment model for deep veinthrombosis (DVT) and pulmonary embolism (PE). Results <230ng/mL d-dimer units can be used as a negative predictor inpatients with low or moderate probability for DVT/PE.Results above the exclusion threshold of 230 ng/ml D- dimerunits for DVT/PE may indicate the need for furtherdiagnostic testing.D-Dimer can be increased in hospitalized patients due toco-morbid conditions. Estimated GFR (CKD-EPI) > 60.0 mL/Min [facility] Creatinine Clearanc e (Chem 171.83 [facility] Nucleated erythrocytes [Pres ence] in Blood by Automated countOrdered By: Mariya Kumari on 12-30-2022 Nucleated RBC Auto Ql (Bld) 0.1 /100{WBC} 0-0.5 [facility] Partial Thromboplastin Timeo n 12-30-2022 aPTT Coag (Bld) [Time] 30.5 s Normal 25.1-36.5 [facility] Comment on above: Performed By: #### P T, BMP, CBC, DDIMER, BNP, HS TROP, PTT ####[facility] [id number] [place] [address] [facility] Platelet mean volume Auto (B ld) [Entitic vol]Ordered By: Mariya Kumari on 12-30-2022 Platelet mean volume (Bld) [Entitic vol] 8.6 fL 6.3-10.7 [facility] Platelet poor plasma interna tional normalized ratio (INR) by coagulation assay (relatOrdered By: Mariya Kumari on 12-30-2022 INR Coag (PPP) [Relative time] 0.9 {INR} [facility] Comment on above: INR Therapeutic Rang e A) Pre- and Peroperative OAT started two weeks before surgery. NOT HIP SURGERY: 1.5 - 2.5 HIP SURGERY: 2 - 3B) Primary and secondary prevention of venous THROMBOSIS: 2 - 3C) Active venous thrombosis, pulmonary embolismand prevention of recurrent venous thrombosis: 2 - 3D) Prevention of arterial thromboembolismincluding patients with mechanical heart valves: 3 - 4.5 Platelets Auto (Bld) [#/Vol] Ordered By: Mariya Kumari on 12-30-2022 Platelets (Bld) [#/Vol] 348 10*3/uL 150-450 [facility] Potassium [Moles/volume] in Serum or PlasmaOrdered By: Mariya Kumari on 12-30-2022 Potassium [Moles/Vol] 3.7 mmol/L 3.5-5.1 [facility] Prothrombin Time INRon 12-30 INR Coag (PPP) [Relative time] 0.9 {INR} Normal [facility] Comment on above: Result Comment: INR Therapeutic Range A) Pre- and Peroperative OAT started two weeks before surgery. NOT HIP SURGERY: 1.5 - 2.5 HIP SURGERY: 2 - 3 B) Primary and secondary prevention of venous THROMBOSIS: 2 - 3 C) Active venous thrombosis, pulmonary embolism and prevention of recurrent venous thrombosis: 2 - 3 D) Prevention of arterial thromboembolism including patients with mechanical heart valves: 3 - 4.5 Performed By: #### P T, BMP, CBC, DDIMER, BNP, HS TROP, PTT ####[facility] [id number] [place] [id number] [facility] PT Coag (PPP) [Time] 10.9 s Normal 9.0-12.9 [facility] Comment on above: Performed By: #### P T, BMP, CBC, DDIMER, BNP, HS TROP, PTT ####[facility] [id number] [place] [id number] [facility] RBC Auto (Bld) [#/Vol]Ordere d By: Mariya Kumari on 12-30-2022 RBC (Bld) [#/Vol] 4.60 10*6/uL 3.60-5.[address] [facility] Serum or plasma anion gap de terminationOrdered By: Mariya Kumari on 12-30-2022 Anion gap [Moles/Vol] 11.7 mmol/L 6.0-15.0 [facility] Sodium [Moles/volume] in Ser um or PlasmaOrdered By: Mariya Kumari on 12-30-2022 Sodium [Moles/Vol] 140 mmol/L 136-[address] [facility] Troponin I High Sensitivityo n 12-30-2022 Troponin I High Sensitivity 2.4 pg/mL Normal 0.0-15.0 [facility] Comment on above: Result Comment: PERF ORMED BY: [place] [address] PATHOLOGIST D[employer]EL AUTOMOTIVE TECHNICIAN WENDY CLARK M.D. Performed By: #### P T, BMP, CBC, DDIMER, BNP, HS TROP, PTT ####[facility] [id number] Troponin I.cardiac [Mass/vol ume] in Serum or Plasma by Detection limit <= 0.01 ng/Ordered By: Mariya Kumari on 12-30-2022 Troponin I.cardiac DL <= 0.0 1 ng/mL [Mass/Vol] 2.4 pg/mL 0.0-15.0 [facility] Urea nitrogen [Mass/volume] in Serum or PlasmaOrdered By: Mariya Kumari on 12-30-2022 Urea nitrogen [Mass/Vol] 7 mg/dL 7-25 [facility] WBC Auto (Bld) [#/Vol]Ordere d By: Mariya Kumari on 12-30-2022 WBC (Bld) [#/Vol] 9.6 10*3/uL 3.8-11.[address] [facility] XR chest 2V*on 12-30-2022 XR chest 2V* [facility] [address] [place] [address] [place] [address] XRay Report Signed Patient: Lupe Pickard MR#: [id number] : 1975 Acct:[id number] Age/Sex: 47 / F ADM Date: 12/30/22 Loc: ER Room: Type: [facility] ER Attending Dr: Copies to: Mariya Kumari DO Ordering Provider: Mariya Kumari DO Date of Service: 12/30/22 XR/XR chest 2V*: Recheck/Abnormal Lab/Rx XR chest 2V* 12/30/2022 5:54 PM SIGNS AND SYMPTOMS: Hypertension, headache PROTOCOL: Frontal and lateral radiographs of the chest COMPARISON: 12/20/2022 FINDINGS: The trachea is midline. The heart and mediastinal structures are within normal limits. The lung parenchyma is clear. The bony thorax is intact. Degenerative changes are present in the thoracic spine. XR/XR chest 2V* IMPRESSION: No acute cardiopulmonary pathology. Impression dictated by: Ernie Roper M.D.12/30/2022 6:06 PM Dictation Location: [place] [address] Transcribed By: [facility] 12/30/221805 Dictated By: Ernie Roper II, MD 12/30/221804 Signed By: 12/30/221805 Normal [facility] MM screening mammo BI w/CADo n 12-29-2022 MM screening mammo BI w/CAD [place] [address] Mammography Report Signed Patient: Lupe Pickard MR#: [id number] : 1975 Acct:[id number] Age/Sex: 47 / F ADM Date: 12/29/22 Loc: [place] Room: Type: [facility] CLI Attending Dr: Amanda Montiel MD Copies to: NO FAMILY PHYSICIAN Amanda Montiel MD-NOMS Ordering Provider: Amanda Montiel MD-NOMS Date of Service: 12/29/22 MM/MM screening mammo BI w/CAD: screening;Encounter for screening mammogram for malignant ne CLINICAL DATA: Screening for malignancy. SCREENING MAMMOGRAM - FULL FIELD DIGITAL WITH TOMOSYNTHESIS AND CAD COMPARISON:Mammograms dating back to 2018 Tomosynthesis craniocaudal and mediolateral oblique views of both breasts were obtained using low- dose digital technique. This examination was reviewed with the aid of CAD. The breast tissue is composed of scattered fibroglandular densities. There are no dominant masses, typically malignant calcifications or architectural distortion. There has been no significant interval change. MM/MM screening mammo BI w/CAD IMPRESSION: NO MAMMOGRAPHIC EVIDENCE OF MALIGNANCY. ROUTINE FOLLOW-UP IS RECOMMENDED IN ONE YEAR. RESULT CODE: 1 Negative DENSITY CODE: 2 (approximately 25-50% glandular) FOLLOW UP: 1YR The false-negative rate of mammography is approximately 10-percent. Management of a palpable abnormality must be based on clinical grounds. Patient was entered into a reminder system with a target due date for the next mammogram. Impression dictated by: Bob Neff Jr., D.O.12/29/2022 2:57 PM Dictation Location: [facility] Transcribed By: BOB 12/29/22 145 Dictated By: Bob Neff Jr, DO 12/29/221456 Signed By: 12/29/221456 [facility] Consent for Treatmenton 11-28 Consent for Treatment [id number]:127 [facility] Heart and Vascular Office/Cl inic Noteon 12-24-2022 Heart and Vascular Office/Clinic Note History of Present Illness Patient is a very pleasant 47-year-old morbidly obese nondiabetic female with a history of fibromyalgia, GERD, former smoker quit more than 30 years ago, referred to our office for palpitations. Patient was originally referred to [facility] with Dr. Ross and she provided several printouts including a 30-day event monitor which took place on 06/15/2022 which was abnormal which demonstrated a couple events of ventricular tachycardia 1 for 3 beats and 145 beats at 217 bpm another episode of narrow complex tachycardia suggestive of atrial tachycardia at a rate of 130 beats a minute. In addition echocardiogram dated 05/06/2020 showed an EF of 55 to 60%, stage I diastolic dysfunction unable to quantitate RVSP. On further history the patient smokes occasionally, and recently had a brother at age 42 from a myocardial infarction. She has no other known family history. The patient has significant anxiety which is a known entity, and has complained of chest tightness with her anxiety. She reports that she had a stress test which was a walking test only last month, and was told it was okay by her burnt lime drawer. Given the patient's family history of heart disease she wanted a second opinion. The patient went to the emergency room [address] [facility] where her blood pressure was found to be 166/102 and she had chest pressure and discomfort at that time. She is complained of palpitations for the past 2 years since being diagnosed with COVID. She states that she thinks she may have had a Maller rash and is WILL positive but never been diagnosed with lupus. She has a pending appointment with endocrinology. Patient also has complained of sleep disturbance with palpitations at night. Recently her Toprol was increased to 50 mg p.o. daily and her palpitations have worsened. In our office her blood pressure is 133/85 and pulse of 79 and regular. Physical exam demonstrates moderate obesity, clear lungs bilaterally, 2+ carotid upstroke, no carotid bruits, regular rate and rhythm, normal S1/S2, no S3 or S4, no edema noted.. EKG dated 12/24/2022 shows normal sinus rhythm, normal axis, normal intervals, minimal criteria for LVH, no previous myocardial infarction noted. Lipids are pending. Review of Systems Constitutional: no fever, no sweats, no weakness Skin: no rash, no lesions, nobruising/petechiae ENMT: no sore throat, no congestion, no hoarseness Respiratory: no shortness of breath, no cough, no orthopnea, no wheezing Cardiovascular: no chest pain, no palpitations, no edema Gastrointestinal: no nausea, no vomiting, no diarrhea, no GI bleeding Genitourinary: no anuria/oliguria no hematuria Musculoskeletal: no back pain, no trauma Neurologic: no headache, no dizziness, no numbness, no weakness Psychiatric: no sleeping problems, no irritability, no anxiety/depression. Heme/Lymph: no bleeding tendency, no bruising tendency Allergy/Immunologic: no recurrent infections, no impaired immunity Additional ROS info: Except as noted in the above Review of Systems and in the History of Present Illness all other systems have been reviewed and are negative or noncontributory. Physical Exam General: alert, no acute distress Skin: warm, dry intact Head: atraumatic, normocephalic Neck: Trachea midline, no JVD, no bruit Eye: normal conjunctiva, sclera clear ENMT: oral mucosa moist Cardiovascular: regular rate and rhythm, nomurmur normal peripheral perfusion Respiratory: Lungs CTA, respirations non labored Chest wall: no deformity. Gastrointestinal: soft, non distended, no tenderness, no guarding. Back: No tenderness, Normal ROM, Normal alignment. Extremities: no edema, no deformity, no trauma Neurological: oriented x 4, LOC appropriate for agesensation equal & normal bilaterally, speech normal Psychiatric: cooperative, affect appropriate for age, normal judgement, normal psychiatric thoughts. Assessment/Plan 1. Chest pressure: Patient describes exertional chest pressure, and recently underwent a 9 nuclear imaging stress test and was told her results were okay. Unfortunately we do not have those results in front of us. Recently her beta-shorty has been increased for her palpitations and reports that her palpitations have actually worsened. I recommended the patient undergo a treadmill/MPI to document her blood pressure response to exercise, exercise capacity, and to evaluate for possible ischemia. If this is grossly abnormal, the patient may require diagnostic coronary angiogram. I recommended that she start baby aspirin 81 mg p.o. daily and continue her metoprolol and magnesium. We will decrease her metoprolol to 25 mg p.o. daily given the worsening palpitations. 2. Obstructive sleep apnea: Given the patient's sleep disturbances and palpitations as well as labile hypertension I recommend that she undergo a sleep study. 3. Hyperlipidemia: Recommend obtaining a baseline fasting lipid profile. Would recommend aggressive L (more content not included)... Normal [facility] Comment on above: Result Comment: Elec tronically Signed By: Santy PELAYO, Franklyn Arias\.chanel\Date and Time Signed: 12/24/22 11:34 EDT Physician Orderon 12-24-2022 Physician Order [id number]:127 Normal [facility] Physician Referralon 023 Physician Referral [id number]:127 Normal [facility] Activated partial thrombopla stin time (aPTT) in platelet poor plasma by coagulation aOrdered By: Josué Napier on 12-20-2022 aPTT Coag (PPP) [Time] 31.8 s 25.1-36.5 [facility] Alanine aminotransferase [En zymatic activity/volume] in Serum or PlasmaOrdered By: Josué Napier on 12-20-2022 ALT [Catalytic activity/Vol] 12 U/L Normal 7-52 [facility] Comment on above: Performed By: #### C MP, HS TROP, CBC, T4T, PTT, MG, TSH3, CK, PT ####[place] [id number] [place] [id number] [facility] Albumin [Mass/volume] in Ser um or Plasma by Bromocresol green (BCG) dye binding methoOrdered By: Josué Napier on 12-20-2022 Albumin BCG dye [Mass/Vol] 4.4 g/dL 3.5-5.7 [facility] Alkaline phosphatase [Enzyma tic activity/volume] in Serum or PlasmaOrdered By: Josué Napier on 12-20-2022 ALP [Catalytic activity/Vol] 49 U/L Normal 34-104 [facility] Comment on above: Performed By: #### C MP, HS TROP, CBC, T4T, PTT, MG, TSH3, CK, PT ####[place] [id number] [facility] Amphetamine Screen Ql (U)Ord ered By: Josué Napier on 12-20-2022 Amphetamines Ql (U) Negative Negative [facility] Aspartate aminotransferase [ Enzymatic activity/volume] in Serum or PlasmaOrdered By: Josué Napier on 12-20-2022 AST [Catalytic activity/Vol] 11 U/L Low 13-39 [facility] Comment on above: Performed By: #### C MP, HS TROP, CBC, T4T, PTT, MG, TSH3, CK, PT ####[place] [id number] [facility] Automated basophil %Ordered By: Josué Napier on 12-20-2022 Basophils/100 WBC (Bld) 0.2 % Normal . [facility] Comment on above: Performed By: #### C MP, HS TROP, CBC, T4T, PTT, MG, TSH3, CK, PT ####[place] [id number] [address] Automated basophil countOrde red By: Josué Napier on 12-20-2022 Basophils (Bld) [#/Vol] 0.0 10*3/uL Normal 0.0-0.2 [facility] Comment on above: Result Comment: PERF ORMED BY: [facility] [address] [place] [address] PATHOLOGIST DIESEL AUTOMOTIVE TECHNICIAN WENDY CLARK M.D. Performed By: #### C MP, HS TROP, CBC, T4T, PTT, MG, TSH3, CK, PT ####[address] Automated blood monocyte cou ntOrdered By: Josué Napier on 12-20-2022 Monocytes (Bld) [#/Vol] 0.4 10*3/uL Normal 0.0-0.8 [facility] Comment on above: Performed By: #### C MP, HS TROP, CBC, T4T, PTT, MG, TSH3, CK, PT ####[address] Automated eosinophil %Ordere d By: Josué Napier on 12-20-2022 Eosinophils/100 WBC (Bld) 1.1 % Normal . [facility] Comment on above: Performed By: #### C MP, HS TROP, CBC, T4T, PTT, MG, TSH3, CK, PT ####[address] Automated eosinophil countOr dered By: Josué Napier on 12-20-2022 Eosinophils (Bld) [#/Vol] 0.1 10*3/uL Normal 0.0-0.45 [facility] Comment on above: Performed By: #### C MP, HS TROP, CBC, T4T, PTT, MG, TSH3, CK, PT ####[address] Automated monocyte %Ordered By: Josué Napier on 12-20-2022 Monocytes/100 WBC (Bld) 4.1 % Normal . [facility] Comment on above: Performed By: #### C MP, HS TROP, CBC, T4T, PTT, MG, TSH3, CK, PT ####[place] [id number] [address] Automated neutrophil %Ordere d By: Josué Napier on 12-20-2022 Neutrophils/100 WBC (Bld) 67.7 % Normal . [facility] Comment on above: Performed By: #### C MP, HS TROP, CBC, T4T, PTT, MG, TSH3, CK, PT ####[place] [id number] [place] [id number] [facility] Barbiturates [Presence] in U rine by Screen methodOrdered By: Josué Napier on 12-20-2022 Barbiturates Screen Ql (U) Negative Negative [facility] Benzodiazepines Screen Ql (U )Ordered By: Josué Napier on 12-20-2022 Benzodiazepines Ql (U) Negative Negative [facility] Benzoylecgonine [Presence] i n Urine by Screen methodOrdered By: Josué Napier on 12-20-2022 Benzoylecgonine Screen Ql (U) Negative Negati ve [facility] Bilirubin Test strip Ql (U)O rdered By: Josué Napier on 12-20-2022 Bilirubin Ql (U) Negative Negative [facility] Bilirubin.total [Mass/volume ] in Serum or PlasmaOrdered By: Josué Napier on 12-20-2022 Bilirubin [Mass/Vol] 0.3 mg/dL Normal 0.3-1.0 [facility] Comment on above: Performed By: #### C MP, HS TROP, CBC, T4T, PTT, MG, TSH3, CK, PT ####[place] [id number] [place] [id number] [facility] Calcium [Mass/volume] in Ser um or PlasmaOrdered By: Josué Napier on 12-20-2022 Calcium [Mass/Vol] 9.2 mg/dL Normal 8.6-10.[address] [facility] Comment on above: Performed By: #### C MP, HS TROP, CBC, T4T, PTT, MG, TSH3, CK, PT ####[facility] [place] [address] [facility] Cannabinoids [Presence] in U rine by Screen methodOrdered By: Josué Napier on 12-20-2022 Cannabinoids Screen Ql (U) Negative Negative [facility] Comment on above: These are unconfirme d results and should not be used for legal purposes. Drug Cut-Off Concentration: AMPH 1000 ng/mL MEKHI 200 ng/mL NURY 200 ng/mL COCM 300 ng/mL OP 300 ng/mL PCP 25 ng/mL THC 20 ng/mL Carbon dioxide, total [Moles /volume] in Serum or PlasmaOrdered By: Josué Napier on 12-20-2022 CO2 [Moles/Vol] 28.6 mmol/L Normal 21.0-31.0 [facility] Comment on above: Performed By: #### C MP, HS TROP, CBC, T4T, PTT, MG, TSH3, CK, PT ####[place] [id number] [place] [id number] [facility] Chloride [Moles/volume] in S zakia or PlasmaOrdered By: Josué Napier on 12-20-2022 Chloride [Moles/Vol] 104 mmol/L Normal 98-107 [facility] Comment on above: Performed By: #### C MP, HS TROP, CBC, T4T, PTT, MG, TSH3, CK, PT ####[place] [address] [place] [address] [facility] Color Auto (U)Ordered By: Randolph Napier on 12-20-2022 Color (U) Yellow Yellow [facility] Complete Blood Count Auto Di ffon 12-20-2022 Mean Corpuscular HGB Conc 33.6 g/dL Normal 32.0-35.0 [facility] Comment on above: Performed By: #### C MP, HS TROP, CBC, T4T, PTT, MG, TSH3, CK, PT ####[address] [address] [facility] Monocytes/100 WBC (Bld) 18.26 % Normal 0.00-20.00 [facility] Comment on above: Performed By: #### C MP, HS TROP, CBC, T4T, PTT, MG, TSH3, CK, PT ####[place] [id number] NRBC% 0.1 /100{WBC} Normal 0-0.5 [facility] Comment on above: Performed By: #### C MP, HS TROP, CBC, T4T, PTT, MG, TSH3, CK, PT ####[place] [id number] [facility] Comprehensive Metabolic Pane eriberto 12-20-2022 Albumin [Mass/Vol] 4.4 g/dL Normal 3.5-5.[address] [facility] Comment on above: Performed By: #### C MP, HS TROP, CBC, T4T, PTT, MG, TSH3, CK, PT ####[place] [id number] Creatinine Clr Calc Pharmacy 168.35 Normal [facility] Comment on above: Performed By: #### C MP, HS TROP, CBC, T4T, PTT, MG, TSH3, CK, PT ####[address] GFR/1.73 sq M.predicted MDRD (S/P/Bld) [Vol rate/Area] mL/min/{1.73_m2} Normal [facility] Comment on above: Performed By: #### C MP, HS TROP, CBC, T4T, PTT, MG, TSH3, CK, PT ####[address] Creatine kinase [Enzymatic a ctivity/volume] in Serum or PlasmaOrdered By: Josué Napier on 12-20-2022 CK [Catalytic activity/Vol] 46 U/L Normal 30-223 [facility] Comment on above: Performed By: #### C MP, HS TROP, CBC, T4T, PTT, MG, TSH3, CK, PT ####[place] [id number] [facility] Creatinine [Mass/volume] in Serum or PlasmaOrdered By: Josué Napier on 12-20-2022 Creatinine [Mass/Vol] 0.57 mg/dL Low 0.60-1.20 [facility] Comment on above: Performed By: #### C MP, HS TROP, CBC, T4T, PTT, MG, TSH3, CK, PT ####[facility] [id number] [place] [address] [place] Drug Screen,Urineon 12-21-19 23 Amphetamine Screen,Urine Negative Normal Negative [facility] Comment on above: Performed By: #### U A #### [facility] [address] Barbiturate Screen,Urine Negative Normal Negative [facility] Comment on above: Performed By: #### U A #### [address] Benzodiazepines Screen,Urine Negative Normal Negativ e [facility] Comment on above: Performed By: #### U A #### [address] Cannabinoid Screen,Urine Negative Normal Negative [facility] Comment on above: Result Comment: Thes e are unconfirmed results and should not be used for legal purposes. Drug Cut-Off Concentration: AMPH 1000 ng/mL MEKHI 200 ng/mL NURY 200 ng/mL COCM 300 ng/mL OP 300 ng/mL PCP 25 ng/mL THC 20 ng/mL PERFORMED BY: [place] [address] PATHOLOGIST DIESEL AUTOMOTIVE TECHNICIAN WENDY CLARK M.D. Performed By: #### U A #### [place] [address] [place] Cocaine Screen,Urine Negative Normal Negative [facility] Comment on above: Performed By: #### U A #### [place] [address] [place] Opiate Screen,Urine Negative Normal Negative [facility] Comment on above: Performed By: #### U A #### [place] [address] [place] Phencyclidine Screen,Urine Negative Normal Negative [facility] Comment on above: Performed By: #### U A #### [facility] [address] ECG 12 lead ECGon 12-20-2022 ECG 12 lead ECG [facility] [address] [place] [address] [place] [address] Electrocardiograph Report Signed Patient: Lupe Pickard MR#: [id number] : 1975 Acct:[id number] Age/Sex: 47 / F ADM Date: 12/20/22 Loc: ER Room: Type: [facility] ER Attending Dr: Ordering Provider: Josué Napier PA-C Date of Service: 12/20/22 ECG/ECG 12 lead ECG: Arrhythmia/Palpitations Copies to: Test Reason : Blood Pressure : 183/106 mmHG Vent. Rate : 071 BPM Atrial Rate : 071 BPM P-R Int : 140 ms QRS Dur : 074 ms QT Int : 384 ms P-R-T Axes : 004 -19 011 degrees QTc Int : 417 ms Normal sinus rhythm Left ventricular hypertrophy Confirmed by Yogi Mcgraw DO ([id number]) on 12/20/2022 4:21:20 PM Referred By: Electronically Signed By:Yogi Mcgraw DO Transcribed By: MUS Signed By Yogi Mcgraw DO [id number] Normal [facility] Erythrocyte distribution wid th [Ratio] by Automated countOrdered By: Josué Napier on 12-20-2022 Erythrocyte distribution wid th (RBC) [Ratio] 14.4 % Normal 11.9-15.3 [facility] Comment on above: Performed By: #### C MP, HS TROP, CBC, T4T, PTT, MG, TSH3, CK, PT ####[facility] [id number] Erythrocytes [#/volume] in B lood by Automated countOrdered By: Josué Napier on 12-20-2022 RBC (Bld) [#/Vol] 4.68 10*6/uL Normal 3.60-5.[address] [facility] Comment on above: Performed By: #### C MP, HS TROP, CBC, T4T, PTT, MG, TSH3, CK, PT ####[place] [address] [place] [id number] [facility] Glucose [Mass/volume] in Ser um or PlasmaOrdered By: Josué Napier on 12-20-2022 Glucose [Mass/Vol] 97 mg/dL Normal 70-[address] [facility] Comment on above: ADA recommended refe rence rangeRandom Glucose Reference Range is dependent on time and content of last meal. Glucose of more than 200 mg/dL in a nonstressed, ambulatory subject supports the diagnosis of Diabetes Mellitus. Result Comment: [place] om Glucose Reference Range is dependent on time and content of last meal. Glucose of more than 200 mg/dL in a nonstressed, ambulatory subject supports the diagnosis of Diabetes Mellitus. ADA recommended reference range Performed By: #### C MP, HS TROP, CBC, T4T, PTT, MG, TSH3, CK, PT ####[place] [address] [place] [id number] [facility] Hematocrit [Volume Fraction] of Blood by Automated countOrdered By: Josué Napier on 12-20-2022 Hematocrit (Bld) [Volume fraction] 40.7 % Normal 34.0-46.4 [facility] Comment on above: Performed By: #### C MP, HS TROP, CBC, T4T, PTT, MG, TSH3, CK, PT ####[place] [address] [place] [address] [facility] Hemoglobin [Mass/volume] in BloodOrdered By: Josué Napier on 12-20-2022 Hemoglobin (Bld) [Mass/Vol] 13.7 g/dL Normal 11.8-15. 4 [facility] Comment on above: Performed By: #### C MP, HS TROP, CBC, T4T, PTT, MG, TSH3, CK, PT ####[place] [id number] [facility] Ketones Auto test strip (U) [Mass/Vol]Ordered By: Josué Napier on 12-20-2022 Ketones (U) [Mass/Vol] Negative Negative [facility] Leukocytes [#/volume] correc emily for nucleated erythrocytes in Blood by Automated counOrdered By: Josué Napier on 12-20-2022 WBC corrected for nucl RBC A uto (Bld) [#/Vol] 10.0 10*3/uL 3.8-11.6 [facility] Leukocytes [#/volume] in Blo od by Automated countOrdered By: Josué Napier on 12-20-2022 WBC (Bld) [#/Vol] 10.0 10*3/uL Normal 3.8-11.[address] [facility] Comment on above: Performed By: #### C MP, HS TROP, CBC, T4T, PTT, MG, TSH3, CK, PT ####[place] [id number] [facility] Lymphocytes [#/volume] in Bl ood by Automated countOrdered By: Josué Napier on 12-20-2022 Lymphocytes (Bld) [#/Vol] 2.7 10*3/uL Normal 1.00-4.8 [facility] Comment on above: Performed By: #### C MP, HS TROP, CBC, T4T, PTT, MG, TSH3, CK, PT ####[place] [id number] [facility] Lymphocytes/100 leukocytes i n Blood by Automated countOrdered By: Josué Napier on 12-20-2022 Lymphocytes/100 WBC (Bld) 26.9 % Normal . [facility] Comment on above: Performed By: #### C MP, HS TROP, CBC, T4T, PTT, MG, TSH3, CK, PT ####[place] [id number] [facility] MCH [Entitic mass] by Automa emily countOrdered By: Josué Napier on 12-20-2022 MCH (RBC) [Entitic mass] 29.2 pg Normal 24.7-34.3 [facility] Comment on above: Performed By: #### C MP, HS TROP, CBC, T4T, PTT, MG, TSH3, CK, PT ####[place] [id number] [facility] MCHC Auto (RBC) [Mass/Vol]Or dered By: Josué Napier on 12-20-2022 MCHC (RBC) [Mass/Vol] 33.6 g/dL 32.0-35.0 [facility] MCV [Entitic volume] by Auto mated countOrdered By: Josué Napier on 12-20-2022 MCV (RBC) [Entitic vol] 86.9 fL Normal 80-100 F [facility] Comment on above: Performed By: #### C MP, HS TROP, CBC, T4T, PTT, MG, TSH3, CK, PT ####[place] [id number] Magnesium [Mass/volume] in S zakia or PlasmaOrdered By: Josué Napier on 12-20-2022 Magnesium [Mass/Vol] 1.8 mg/dL Low 1.9-2.7 [facility] Comment on above: Performed By: #### C MP, HS TROP, CBC, T4T, PTT, MG, TSH3, CK, PT ####[address] Monocyte distribution width [Entitic volume] in Blood by AutomatedOrdered By: Josué Napier on 12-20-2022 Monocyte distribution width Auto (Bld) [Entitic vol] 18.26 % 0.00-20.00 [facility] Neutrophils [#/volume] in Bl ood by Automated countOrdered By: Josué Napier on 12-20-2022 Neutrophils (Bld) [#/Vol] 6.8 10*3/uL Normal 1.8-7.7 [facility] Comment on above: Performed By: #### C MP, HS TROP, CBC, T4T, PTT, MG, TSH3, CK, PT ####[place] [id number] [facility] Nitrite Test strip Ql (U)Ord ered By: Josué Napier on 12-20-2022 Nitrite Ql (U) Negative Negative [facility] No Panel InformationOrdered By: Josué Napier on 12-20-2022 Estimated GFR (CKD-EPI) > 60.0 mL/Min [facility] Creatinine Clearanc e (Chem 168.35 [facility] Nucleated erythrocytes [Pres ence] in Blood by Automated countOrdered By: Josué Napier on 12-20-2022 Nucleated RBC Auto Ql (Bld) 0.1 /100{WBC} 0-0.5 [facility] Opiates [Presence] in Urine by Screen methodOrdered By: Josué Napier on 12-20-2022 Opiates Screen Ql (U) Negative Negative [facility] Partial Thromboplastin Timeo n 12-20-2022 aPTT Coag (Bld) [Time] 31.8 s Normal 25.1-36.5 [facility] Comment on above: Result Comment: PERF ORMED BY: [facility] [address] [address] PATHOLOGIST DIESEL AUTOMOTIVE TECHNICIAN WENDY CLARK M.D. Performed By: #### C MP, HS TROP, CBC, T4T, PTT, MG, TSH3, CK, PT ####[facility] [place] [id number] [facility] Phencyclidine Screen Ql (U)O rdered By: Josué Napier on 12-20-2022 Phencyclidine Ql (U) Negative Negative [facility] Platelet mean volume [Entiti c volume] in Blood by Automated countOrdered By: Josué Napier on 12-20-2022 Platelet mean volume (Bld) [Entitic vol] 8.3 fL Normal 6.3-10.7 [facility] Comment on above: Performed By: #### C MP, HS TROP, CBC, T4T, PTT, MG, TSH3, CK, PT ####[facility] [id number] [place] [id number] [facility] Platelet poor plasma interna tional normalized ratio (INR) by coagulation assay (relatOrdered By: Josué Napier on 12-20-2022 INR Coag (PPP) [Relative time] 1.0 {INR} Normal [facility] Comment on above: INR Therapeutic Rang e A) Pre- and Peroperative OAT started two weeks before surgery. NOT HIP SURGERY: 1.5 - 2.5 HIP SURGERY: 2 - 3B) Primary and secondary prevention of venous THROMBOSIS: 2 - 3C) Active venous thrombosis, pulmonary embolismand prevention of recurrent venous thrombosis: 2 - 3D) Prevention of arterial thromboembolismincluding patients with mechanical heart valves: 3 - 4.5 Result Comment: INR Therapeutic Range A) Pre- and Peroperative OAT started two weeks before surgery. NOT HIP SURGERY: 1.5 - 2.5 HIP SURGERY: 2 - 3 B) Primary and secondary prevention of venous THROMBOSIS: 2 - 3 C) Active venous thrombosis, pulmonary embolism and prevention of recurrent venous thrombosis: 2 - 3 D) Prevention of arterial thromboembolism including patients with mechanical heart valves: 3 - 4.5 Performed By: #### C MP, HS TROP, CBC, T4T, PTT, MG, TSH3, CK, PT ####[place] [id number] [facility] Platelets [#/volume] in Bloo d by Automated countOrdered By: Josué Napier on 12-20-2022 Platelets (Bld) [#/Vol] 349 10*3/uL Normal 150-450 [facility] Comment on above: Performed By: #### C MP, HS TROP, CBC, T4T, PTT, MG, TSH3, CK, PT ####[address] Potassium [Moles/volume] in Serum or PlasmaOrdered By: Josué Napier on 12-20-2022 Potassium [Moles/Vol] 3.9 mmol/L Normal 3.5-5.1 [facility] Comment on above: Performed By: #### C MP, HS TROP, CBC, T4T, PTT, MG, TSH3, CK, PT ####[place] [id number] [facility] Protein Auto test strip (U) [Mass/Vol]Ordered By: Josué Napier on 12-20-2022 Protein (U) [Mass/Vol] Negative Negative [facility] Protein [Mass/volume] in Ser um or PlasmaOrdered By: Josué Napier on 12-20-2022 Protein [Mass/Vol] 7.5 g/dL Normal 6.4-8.[address] [facility] Comment on above: Performed By: #### C MP, HS TROP, CBC, T4T, PTT, MG, TSH3, CK, PT ####[place] [id number] [place] Prothrombin Time INROrdered By: Josué Napier on 12-20-2022 PT Coag (PPP) [Time] 11.8 s Normal 9.0-12.9 [facility] Comment on above: Performed By: #### C MP, HS TROP, CBC, T4T, PTT, MG, TSH3, CK, PT ####[place] [id number] Serum globulin measurement b y calculation (mass/volume)Ordered By: Josué Napier on 12-20-2022 Globulin (S) [Mass/Vol] 3.1 g/dL Normal [facility] Comment on above: Performed By: #### C MP, HS TROP, CBC, T4T, PTT, MG, TSH3, CK, PT ####[address] Serum or plasma albumin/glob ulin mass ratioOrdered By: Josué Napier on 12-20-2022 Albumin/Globulin [Mass ratio] 1.4 {ratio} Normal [facility] Comment on above: Performed By: #### C MP, HS TROP, CBC, T4T, PTT, MG, TSH3, CK, PT ####[address] Serum or plasma anion gap de terminationOrdered By: Josué Napier on 12-20-2022 Anion gap [Moles/Vol] 10.3 mmol/L Normal 6.0-15.0 [facility] Comment on above: Performed By: #### C MP, HS TROP, CBC, T4T, PTT, MG, TSH3, CK, PT ####[address] Sodium [Moles/volume] in Ser um or PlasmaOrdered By: Josué Napier on 12-20-2022 Sodium [Moles/Vol] 139 mmol/L Normal 136-[address] [facility] Comment on above: Performed By: #### C MP, HS TROP, CBC, T4T, PTT, MG, TSH3, CK, PT ####[place] [address] [facility] Specific gravity Auto test s trip (U) [Rel density]Ordered By: Josué Napier on 12-20-2022 Specific gravity (U) [Rel density] 1.005 1.001-1.030 [facility] Thyrotropin [Units/volume] i n Serum or PlasmaOrdered By: Josué Napier on 12-20-2022 TSH Qn 0.23 m[IU]/L Low 0.45-5.33 [facility] Comment on above: Result Comment: PERF ORMED BY: [facility] [address] [place] [id number] PATHOLOGIST DIESEL AUTOMOTIVE TECHNICIAN WENDY CLARK M.D. Performed By: #### C MP, HS TROP, CBC, T4T, PTT, MG, TSH3, CK, PT ####[place] [id number] [facility] Thyroxine (T4) [Mass/volume] in Serum or PlasmaOrdered By: Josué Napier on 12-20-2022 T4 [Mass/Vol] 9.01 ug/dL Normal 5.39-11.82 [facility] Comment on above: Performed By: #### C MP, HS TROP, CBC, T4T, PTT, MG, TSH3, CK, PT ####[place] [id number] [facility] Troponin I High Sensitivityo n 12-20-2022 Troponin I High Sensitivity < 2.3 Normal 0.0-15.0 [facility] Comment on above: Result Comment: PERF ORMED BY: [facility] [address] [place] [id number] PATHOLOGIST DIESEL AUTOMOTIVE TECHNICIAN WENDY CLARK M.D. Performed By: #### C MP, HS TROP, CBC, T4T, PTT, MG, TSH3, CK, PT ####[place] [phone] [facility] Troponin I.cardiac [Mass/vol ume] in Serum or Plasma by Detection limit <= 0.01 ng/Ordered By: Josué Napier on 12-20-2022 Troponin I.cardiac DL <= 0.0 1 ng/mL [Mass/Vol] < 2.3 pg/mL 0.0-15.0 [facility] Urea nitrogen [Mass/volume] in Serum or PlasmaOrdered By: Josué Napier on 12-20-2022 Urea nitrogen [Mass/Vol] 9 mg/dL Normal -25 [facility] Comment on above: Performed By: #### C MP, HS TROP, CBC, T4T, PTT, MG, TSH3, CK, PT ####[address] [address] [facility] Urinalysison 12-20-2022 Appearance (U) Clear Normal Clear [facility] Comment on above: Order Comment: Name Collection Type:: Clean-Voided Midstream Performed By: #### U RDS, UA ####[address] [address] [facility] Bilirubin,Urine Negative Normal Negative [facility] Comment on above: Order Comment: Name Collection Type:: Clean-Voided Midstream Performed By: #### U RDS, UA ####[address] [address] [facility] Color (U) Yellow Normal Yellow [facility] Comment on above: Order Comment: Name Collection Type:: Clean-Voided Midstream Performed By: #### U RDS, UA ####[address] [address] [facility] Glucose Ql (U) Normal Normal Normal [facility] Comment on above: Order Comment: Name Collection Type:: Clean-Voided Midstream Performed By: #### U RDS, UA ####[address] [address] [facility] Ketones Ql (U) Negative Normal Negative [facility] Comment on above: Order Comment: Name Collection Type:: Clean-Voided Midstream Performed By: #### U RDS, UA ####[address] [address] [facility] Leukocyte esterase Test stri p Ql (U) Negative Normal Negative [facility] Comment on above: Order Comment: Name Collection Type:: Clean-Voided Midstream Performed By: #### U RDS, UA ####[facility] [place] [address] [place] Nitrite,Urine Negative Normal Negative [facility] Comment on above: Order Comment: Name Collection Type:: Clean-Voided Midstream Performed By: #### U RDS, UA ####[facility] [place] [address] [place] Occult Blood,Urine Negative Normal Negative [facility] Comment on above: Order Comment: Name Collection Type:: Clean-Voided Midstream Result Comment: PERF ORMED BY: [facility] [address] [place] [id number] PATHOLOGIST DIESEL AUTOMOTIVE TECHNICIAN WENDY CLARK M.D. Performed By: #### U RDS, UA ####[place] [id number] [place] [address] [facility] pH (U) 6.5 [pH] Normal 5.0-9.[address] [facility] Comment on above: Order Comment: Name Collection Type:: Clean-Voided Midstream Performed By: #### U RDS, UA ####[address] [address] [place] Protein,Urine Negative Normal Negative [facility] Comment on above: Order Comment: Name Collection Type:: Clean-Voided Midstream Performed By: #### U RDS, UA ####[address] [address] [facility] Specificy [place],Urine 1.005 Normal 1.001-1.030 [facility] Comment on above: Order Comment: Name Collection Type:: Clean-Voided Midstream Performed By: #### U RDS, UA ####[address] [address] [place] Urobilinogen,Urine Normal Normal Normal [facility] Comment on above: Order Comment: Name Collection Type:: Clean-Voided Midstream Performed By: #### U RDS, UA ####[address] [address] [place] Urine clarity by refractomet ry automatedOrdered By: Josué Napier on 12-20-2022 Clarity Refractometry automated (U) Clear Clear [facility] Urine glucose measurement by automated test strip (mass/volume)Ordered By: Josué Napier on 12-20-2022 Glucose Auto test strip (U) [Mass/Vol] Normal mg/dL Normal [facility] Urine hemoglobin detection b y automated test stripOrdered By: Josué Napier on 12-20-2022 Hemoglobin Auto test strip Ql (U) Negative Ne gative [facility] Urine leukocyte esterase det ection by automated test stripOrdered By: Josué Napier on 12-20-2022 Leukocyte esterase Auto test strip Ql (U) Negative Negative [facility] Urobilinogen Auto test strip (U) [Mass/Vol]Ordered By: Josué Napier on 12-20-2022 Urobilinogen (U) [Mass/Vol] Normal mg/dL Normal [facility] XR chest 2V*on 12-20-2022 XR chest 2V* [facility] [address] XRay Report Signed Patient: Lupe Pickard MR#: [id number] : 1975 Acct:[id number] Age/Sex: 47 / F ADM Date: 12/20/22 Loc: ER Room: Type: PRE ER Attending Dr: Copies to: Josué Napier PA-C Ordering Provider: Josué Napier PA-C Date of Service: 12/20/22 XR/XR chest 2V*: Arrhythmia/Palpitations Plain film chest 2 view HISTORY: Chest pain and shortness of breath COMPARISON: 11/05/22 FINDINGS: SUPPORT DEVICES: None POSTSURGICAL CHANGES: None HEART: Within normal limits PULMONARY HEAVENLY: Within normal limits MEDIASTINUM: Unremarkable LUNGS AND PLEURA: No acute lung process, pleural effusion or pneumothorax identified. BONY STRUCTURES: Thoracic spondylosis ADDITIONAL FINDINGS None XR/XR chest 2V* IMPRESSION: No acute process. Impression dictated by: Rao Gresham M.D.12/20/2022 1:24 PM Dictation Location: [place] [address] Transcribed By: [facility] 12/20/22 1324 Dictated By: Rao Gresham DO 12/20/22 1323 Signed By: 12/20/22 1324 Normal [facility] pH Auto test strip (U)Ordere d By: Josué Napier on 12-20-2022 pH (U) 6.5 [pH] 5.0-9.[address] [facility] Consultation Noteon 12-14-19 Consultation Note [id number]:127 Normal [facility] Office Visit (Cardiology)on 12-08-2022 Follow-up visit Diagnoses/Problems Assessed Shortness of breath (786.05) (R06.02) Palpitations (785.1) (R00.2) PVC (premature ventricular contraction) (427.69) (I49.3) Atrial tachycardia (427.89) (I47.1) Former smoker (V15.82) (Z87.891) quit 01/28/22 Morbid obesity with BMI of 40.0-44.9, adult (278.01,V85.41) (E66.01,Z68.41) Hypothyroidism (244.9) (E03.9) Chest pain (786.50) (R07.9) Anxiety (300.00) (F41.9) Orders Anxiety, Palpitations, PVC (premature ventricular contraction) Basic Metabolic Panel; Status:Active - Retrospective Authorization; Requested for:[id number]; TSH - Thyroid Stimulating Hormone, Serum; Status:Active - Retrospective Authorization; Requested for:[id number]; Vitamin D 25-Hydroxy; Status:Need Information - ABN Disposition,Retrospective Authorization; Requested for:[id number]; Morbid obesity with BMI of 40.0-44.9, adult Healthy Weight Tips; Status:Complete - Retrospective Authorization; Done: [id number] Some eating tips that can help you lose weight.; Status:Complete - Retrospective Authorization; Done: [id number] Palpitations Renew: Metoprolol Succinate ER 50 MG Oral Tablet Extended Release 24 Hour; TAKE 1 TABLET BY MOUTH EVERY DAY PVC (premature ventricular contraction) IO EKG Electrocardiogram- 12 Lead; Status:Complete; Done: [id number] SocHx: Former smoker Tobacco Use Screening; Status:Complete; Done: [id number] Patient Instructions Please bring all medicines, vitamins, and herbal supplements with you when you come to the office. Prescriptions will not be filled unless you are compliant with your follow up appointments or have a follow up appointment scheduled as per instruction of your physician. Refills should be requested at the time of your visit. Follow up in 4 months Patient is ok to have nerve ablations in back with the [place] pain [facility]. The provider reviewed the following test(s) and result(s) with the patient: echocardiogram and treadmill exercise tolerance test Chief Complaint LUPE PICKARD is being seen for echo and tress results. History of Present Illness Patient is here for follow-up to management for previous evaluation for palpitation with documentation of PVCs, complaint of chest pain and shortness of breath. She recently underwent work-up. Her echocardiogram and stress test were reassuring. She had 1 visit to the emergency room with palpitation. She was noted to have hypomagnesemia. She report her symptoms initially improved with magnesium supplementation but recently have slight increase of her palpitation. She also describes some anxiety. Plan 1. Symptoms of palpitation documentation on event monitor of PVCs and 2 brief run of nonsustained ventricular tachycardia 1 is 3 beat and the other is 5 beat. Episode of atrial tachycardia was seen. She initially reported improvement of her palpitation with low-dose metoprolol and magnesium but recently has been having on and off symptoms. 2. Patient reports intermittent episodes of shortness of breath and atypical chest pain. Recent stress test and echocardiogram were reassuring 3. Obesity 4. Previous documentation of rare PVCs and PACs on Holter monitor 5. MRI recently suggestive of possible partially empty sella turcica 6. No evidence of coronary artery disease or heart failure based on clinical grounds and testing 7. Hypothyroidism on treatment 8. Hypertension with occasional high reading could be related to anxiety 9. Recent documentation of mild hypomagnesemia with no clear etiology of that currently on magnesium replacement Plan 1. I advised the patient to increase metoprolol to 50 mg once daily to see if it will help alleviate some of her palpitation and improve her blood pressure and symptoms 2. I did review the results of her recent ER visit and hospital record in addition I did review with her her echo and a stress test 3. I encouraged her to lose weight and exercise 4. I advised to notify me change in cardiac status or symptoms 5. We will see her back in 4 months or earlier if the need arise Current Meds Medication NameInstruction ALPRAZolam 0.5 MG Oral TabletTAKE 1 TABLET BY MOUTH EVERY DAY Baclofen 10 MG Oral TabletTAKE 1 TABLET TWICE DAILY. Levothyroxine Sodium 112 MCG Oral TabletTAKE 1 TABLET DAILY. Linzess 145 MCG Oral CapsuleTAKE 1 CAPSULE Daily Liothyronine Sodium 5 MCG Oral Tablettake 1 tablet by mouth twice a day Magnesium Oxide 400 MG Oral TabletTAKE 1 TABLET TWICE DAILY. Melatonin Maximum Strength TABSTAKE 1 TABLET Bedtime Metoprolol Succinate ER 25 MG Oral Tablet Extended Release 24 HourTAKE 1 TABLET DAILY. Multi Vitamin Daily TABSTAKE 1 TABLET DAILY. Oscal 500/200 D-3 TABSTAKE 1 TABLET DAILY DIRECTED. traMADol HCl - 100 MG Oral TabletTAKE 1 TABLET BY MOUTH TWICE A DAY Vitamin D3 1.25 MG (22401 UT) Oral CapsuleTAKE 1 CAPSULE Daily Allergies Medication No Known Drug Allergies Recorded By: Suzie Turner; 10/21/2017 2:10:00 PM Social History Problems Daily caf (more content not included)... Normal [employer] Tobacco Screening.on 023 Tobacco use status [facility] b) No M [place] [id number] DO Work Phone: Echocardiogramon 11-25-[address], [address] [place] [address] TRANSTHORACIC ECHOCARDIOGRAM REPORT Patient Name: LUPE Horne Physician: [id number] Azam Mortensen MD Study Date: 11/25/2022 Referring Physician: PHILLIP BENJAMIN MRN/PID: [id number] PCP: Donya Billings MD Accession/Order#: [id number] Department Location: [facility] Date of : 1975 Fellow: Gender: F Nurse: Admit Date: Dye Maker: Shila Tripp RDCS Brendan Height: 170.18 cm CC Report to: Weight: 121.56 kg Study Type: Echocardiogram BSA: 2.29 m2 Blood Pressure: 120 /82 mmHg Diagnosis/ICD: I47.1-Supraventricular tachycardia; I49.3-Ventricular premature depolarization; R00.2-Palpitations Indication: Chest Pain, Former Smoker, Morbid Obesity, Hypothyroid, Anxiety, Shortness of Breath, Marijuana Use Procedure/CPT: Echo Complete w Full [id number] Study Detail: The following Echo studies were performed: 2D, M-Mode, Doppler and color flow. PHYSICIAN INTERPRETATION: Left Ventricle: Left ventricular systolic function is normal, with an estimated ejection fraction of 60-65%. There are no regional wall motion abnormalities. The left ventricular cavity size is normal. Spectral Doppler shows a normal pattern of left ventricular diastolic filling. Left Atrium: The left atrium is normal in size. Right Ventricle: The right ventricle is normal in size. There is normal right ventricular global systolic function. Right Atrium: The right atrium is normal in size. Aortic Valve: The aortic valve appears structurally normal. There is no evidence of aortic valve regurgitation. The peak instantaneous gradient of the aortic valve is 5.5 mmHg. The mean gradient of the aortic valve is 3.0 mmHg. Mitral Valve: The mitral valve is normal in structure. There is no evidence of mitral valve regurgitation. Tricuspid Valve: The tricuspid valve is structurally normal. There is trace tricuspid regurgitation. Pulmonic Valve: The pulmonic valve is not well visualized. There is no indication of pulmonic valve regurgitation. Pericardium: There is no pericardial effusion noted. Aorta: The aortic root is normal. CONCLUSIONS: 1. Left ventricular systolic function is normal with a 60-65% estimated ejection fraction. QUANTITATIVE DATA SUMMARY: 2D MEASUREMENTS: Normal Ranges: Ao Root d: 2.80 cm (2.0-3.7cm) LAs: 3.90 cm (2.7-4.0cm) RVIDd: 2.90 cm (0.9-3.6cm) IVSd: 1.10 cm (0.6-1.1cm) LVPWd: 0.70 cm (0.6-1.1cm) LVIDd: 5.30 cm (3.9-5.9cm) LVIDs: 3.30 cm LV Mass Index: 76.2 g/m2 LV % FS 37.7 % LV SYSTOLIC FUNCTION BY 2D PLANIMETRY (MOD): Normal Ranges: EF-A4C View: 64.3 % (>=55%) LV DIASTOLIC FUNCTION: Normal Ranges: MV Peak E: 0.81 m/s (0.7-1.2 m/s) MV Peak A: 0.71 m/s (0.42-0.7 m/s) E/A Ratio: 1.14 (1.0-2.2) MV lateral e' 0.09 m/s MV medial e' 0.06 m/s E/e' Ratio: 9.40 (<8.0) MITRAL VALVE: Normal Ranges: MV Vmax: 0.94 m/s (<=1.3m/s) MV peak P.6 mmHg (<5mmHg) MV mean P.0 mmHg (<48mmHg) AORTIC VALVE: Normal Ranges: AoV Vmax: 1.17 m/s (<=1.7m/s) AoV Peak P.5 mmHg (<20mmHg) AoV Mean P.0 mmHg (1.7-11.5mmHg) LVOT Max Mendel: 0.88 m/s (<=1.1m/s) AoV VTI: 25.70 cm (18-25cm) LVOT VTI: 18.20 cm LVOT Diameter: 2.30 cm (1.8-2.4cm) AoV Area, VTI: 2.94 cm2 (2.5-5.5cm2) AoV Area,Vmax: 3.12 cm2 (2.5-4.5cm2) AoV Dimensionless Index: 0.71 TRICUSPID VALVE/RVSP: Normal Ranges: Peak TR Velocity: 2.38 m/s RV Syst Pressure: 25.7 mmHg (< 30mmHg) PULMONIC VALVE: Normal Ranges: PV Max Mendel: 0.8 m/s (0.6-0.9m/s) PV Max P.8 mmHg [id number] Azam Mortensen MD Electronically signed on 11/25/2022 at 5:29:01 PM Final Normal [facility] 11-15-2022 Screens [id number]: 127 Normal [facility] Physician Referralon 023 Physician Referral [id number]:127 Normal [facility] Family Medicine Office/Clini c Noteon 11-12-2022 Family Medicine Office/Clinic Note Chief Complaint Subsequent AWV History of Present Illness I was in the office and available for consultation and to provide direct supervision at the time of this visit. I have provided supervision of the care team and have reviewed this chart and office note and agree with the plan of care. Review of Systems PHQ Score Initial Depression Screen Score: 0 Physical Exam Vitals & Measurements HR: 78(Peripheral) RR: 16 BP: 120/90 SpO2: 98% HT: 170 cm HT: 67 in WT: 121.1 kg WT: 266.42 lb BMI: 41.9 Assessment/Plan 1. Encounter for annual wellness visit (AWV) in Medicare patient (Z00.00: Encounter for general adult medical examination without abnormal findings) The patient was given a customized and personalized print out of all the current AHRQ USPSTF?s recommendations for preventative services and all current CDC recommended immunizations, relevant risk recommendations and the following patient brochures were given. Reviewed What can I expect during my Medicare preventative care visit CDC-Falls Prevention and home safety screening reviewed. Patient denies any falls in last 12 months, voices no worry about falling, exhibits no problems with sitting and standing. Pt voices understanding with keeping walk way area free of clutter to prevent tripping and/or falling. [place] Advance Directives reviewed, pt will complete forms and return them to the office to scan in pt chart. Patient denies any problems with ADL?s and Instrumental ADL?s. Cognitive screening completed with memory and clock face drawing. Immunization Record reviewed with the patient. Discussed Shingrix vaccine with educational handout and availability. COVID vaccines have been declined. Allergies and medications reviewed and up to date. Patient denies concerns with taking medication as prescribed, reviewed OTC medications with patient with medication list up to date. Blood tests were reviewed: Discussed what tests need to be updated. Mammogram ordered and pt will call to schedule. Reviewed concerns with bladder control over past 6 months with no concerns. Reviewed pain symptoms with patient:0/10. Reviewed all outside providers that patient follows. Last visit summary notes available in chart and/or have been requested. AWV has been scheduled 11/16/2023. Alcohol screening is available yearly for patients that do and/or do not use alcohol. This Counseling Interventions are available to reduce alcohol use when there is a concern with misuse or is placing an individual at risk for future problems. This was covered on this date with 12 minutes, this included preparing to see the patient, face to face patient care, completing clinical documentation, obtaining and/or reviewing obtained history, counseling and educating the patient with the increased risks associated with alcohol misuse. Completed AUDIT risk assessment, patients risk score (1). Patient denies concerns with use, will continue to monitor with yearly Medicare wellness visits. 2. BMI 40.0-44.9, adult (Z68.41: Body mass index [BMI] 40.0-44.9, adult) The standard range for ages 18 and older is >=18.5 and < 25 kg/m2. Your BMI 41.9 today was above this range, this falls in the morbid obese category and there are medical benefits to weight loss. BMI monitoring is helpful with identifying a weight problem that may be related to a medical condition, or may increase the risk for medical problems. Your BMI and weight management will be followed at subsequent visits with your provider and monitored for progress. GOAL: promoting healthier lifestyle with diet changes in order to reach a healthy weight. 3. Morbid obesity (E66.01: Morbid (severe) obesity due to excess calories) A combination of diet and exercise can help you lose the weight. Discussed weight loss benefits to dietary management and overall health with increased cardiovascular risks associated with waist measurement >35 inches. Reminded pt importance to work on lowering current body weight with healthy dietary intake choices with understanding of portion control. Reviewed goals and patient's readiness with needing to make a healthier lifestyle change. Will work on increasing daily activity and prevent further weight gain. Will follow up with PCP during office visits for progress. 4. Screening mammogram, encounter for (Z12.31: Encounter for screening mammogram for malignant neoplasm of breast) Recommended mammogram screening discussed with patient during today's Medicare Wellness visit. Patient reminded with the importance of continued Breast Self-Awareness at home. Easy to read demonstration on how to perform a self breast exam: What to look for and feel for was reviewed and provided to patient. Mammogram ordered. Pt has been advised no deodorant, sprays or lotions. 5. Other specified hypothyroidism (E03.8: Other specified hypothyroidism) Patient taking Levothyroxine 112 mcg daily as directed. Denies concerns with cold intolerance, or change in appetite, constipatio (more content not included)... Normal [facility] Comment on above: Result Comment: Elec tronically Signed By: AWA DO, Donya S\.br\Date and Time Signed: 11/12/22 18:07 EDT\.br\Electronically Co-Signed By: Chico Patel LPN\.br\Date and Time Co-Signed: 11/12/22 11:54 EDT\.br\Electronically Co-Signed By: Donya BILLINGS DO\.br\Date and Time Co-Signed: 11/12/22 18:08 EDT Patient Educationon 11-13-19 Patient Education Preventive Care 40?6 4 Years Old, Female Preventive care refers to lifestyle choices and visits with your health care provider that can promote health and wellness. Preventive care visits are also called wellness exams. What can I expect for my preventive care visit? Counseling Your health care provider may ask you questions about your: ? Medical history, including: ? Past medical problems. ? Family medical history. ? history. ? Current health, including: ? Menstrual cycle. ? Method of control. ? Emotional well-being. ? Home life and relationship well-being. ? Sexual activity and sexual health. ? Lifestyle, including: ? Alcohol, nicotine or tobacco, and drug use. ? Access to firearms. ? Diet, exercise, and sleep habits. ? Work and work environment. ? Sunscreen use. ? Safety issues such as seatbelt and bike helmet use. Physical exam Your health care provider will check your: ? Height and weight. These may be used to calculate your BMI (body mass index). BMI is a measurement that tells if you are at a healthy weight. ? Waist circumference. This measures the distance around your waistline. This measurement also tells if you are at a healthy weight and may help predict your risk of certain diseases, such as type 2 diabetes and high blood pressure. ? Heart rate and blood pressure. ? Body temperature. ? Skin for abnormal spots. What immunizations do I need? Vaccines are usually given at various ages, according to a schedule. Your health care provider will recommend vaccines for you based on your age, medical history, and lifestyle or other factors, such as travel or where you work. What tests do I need? Screening Your health care provider may recommend screening tests for certain conditions. This may include: ? Lipid and cholesterol levels. ? Diabetes screening. This is done by checking your blood sugar (glucose) after you have not eaten for a while (fasting). ? Pelvic exam and Pap test. ? Hepatitis B test. ? Hepatitis C test. ? HIV (human immunodeficiency virus) test. ? STI (sexually transmitted infection) testing, if you are at risk. ? Lung cancer screening. ? Colorectal cancer screening. ? Mammogram. Talk with your health care provider about when you should start having regular mammograms. This may depend on whether you have a family history of breast cancer. ? BRCA-related cancer screening. This may be done if you have a family history of breast, ovarian, tubal, or peritoneal cancers. ? Bone density scan. This is done to screen for osteoporosis. Talk with your health care provider about your test results, treatment options, and if necessary, the need for more tests. Follow these instructions at home: Eating and drinking ? Eat a diet that includes fresh fruits and vegetables, whole grains, lean protein, and low-fat dairy products. ? Take vitamin and mineral supplements as recommended by your health care provider. ? Do not drink alcohol if: ? Your health care provider tells you not to drink. ? You are , may be , or are planning to become . ? If you drink alcohol: ? Limit how much you have to 0?1 drink a day. ? Know how much alcohol is in your drink. In the [place] one drink equals one 12 oz bottle of beer (355 mL), one 5 oz glass of wine (148 mL), or one 1? oz glass of hard liquor (44 mL). Lifestyle ? Neptune your teeth every morning and night with fluoride toothpaste. Floss one time each day. ? Exercise for at least 30 minutes 5 or more days each week. ? Do not use any products that contain nicotine or tobacco. These products include cigarettes, chewing tobacco, and vaping devices, such as e-cigarettes. If you need help quitting, ask your health care provider. ? Do not use drugs. ? If you are sexually active, practice safe sex. Use a condom or other form of protection to prevent STIs. ? If you do not wish to become , use a form of control. If you plan to become , see your health care provider for a prepregnancy visit. ? Take aspirin only as told by your health care provider. Make sure that you understand how much to take and what form to take. Work with your health care provider to find out whether it is safe and beneficial for you to take aspirin daily. ? Find healthy ways to manage stress, such as: ? Meditation, yoga, or listening to music. ? Journaling. ? Talking to a trusted person. ? Spending time with friends and family. ? Minimize exposure to UV radiation to reduce your risk of skin cancer. Safety ? Always wear your seat belt while driving or riding in a vehicle. ? Do not drive: ? If you have been drinking alcohol. Do not ride with someone who has been drinking. ? When you are tired or distracted. ? While texting. ? If you have been using any mind-altering substances or drugs. ? Wear a helmet and other protective equipm (more content not included)... Normal [facility] Family Medicine Office/[place] c Noteon 11-11-2022 Family Medicine Office/Clinic Note Chief Complaint 3 month follow up HPI Staff Lupe is a 47 year old female who presents for a 3 month follow up for her controlled medications. She has a chronic history of anxiety and insomnia. She takes Restoril 30mg once daily at , as prescribed, denies any side effects. OARRS reviewed: Yes Medication Agreement updated: 10/20/21 Urine Drug Screen done: 02/11/22 Pill Count Done: No She continues to see cardiology due to chronic chest pain and palpitations. She reports she recently completed a stress test and is scheduled for an echo at the end of the month. She was recently evaluated at [facility] for this concern in addition to elevated BP. She was found to have low magnesium while in the hospital requiring magnesium via IV. States she currently takes Magnesium Oxide BID and does not understand why her magnesium would have been so low. She would also like to discuss testing for mold toxicity. States that she has been doing research and feels that her significant other and herself have a lot of symptoms that would correlate with prison mold exposure. History of Present Illness I have reviewed and verified the staff HPI to be accurate for this encounter. Review of Systems PHQ Score Initial Depression Screen Score: 0 Constitutional: no fever, no chills, no sweats, no weakness Respiratory: no shortness of breath, no cough, no orthopnea, no wheezing Cardiovascular: no chest pain, no palpitations, no edema Additional ROS info: Except as noted in the above Review of Systems and in the History of Present Illness all other systems have been reviewed and are negative or noncontributory. Physical Exam Vitals & Measurements T: 36.2 ?C(Temporal Artery) HR: 84(Peripheral) BP: 124/90 SpO2: 98% HT: 67 in HT: 170 cm WT: 121.4 kg WT: 267.08 lb BMI: 42.01 General: alert, no acute distress Skin: warm, dry Head: no trauma, normocephalic Neck: Trachea midline, no adenopathy, no tenderness Eye: normal conjunctiva, sclera clear ENMT: TM's clear, oral mucosa moist, no pharyngeal erythema or exudate Cardiovascular: regular rate and rhythm, normal peripheral perfusion Respiratory: Lungs CTA, respirations non labored Chest wall: no deformity. Gastrointestinal: soft, non distended, no tenderness, no guarding. Back: No tenderness, Normal ROM, Normal alignment. Extremities: no deformity, no trauma Neurological: oriented x 4, LOC appropriate for age, CN II-XII intact, motor strength equal & normal bilaterally, sensation equal & normal bilaterally, speech normal Psychiatric: cooperative, affect appropriate for age, normal judgement, normal psychiatric thoughts. Assessment/Plan 1. Anxiety (F41.1: Generalized anxiety disorder) can use the xanax as needed. 2. Chronic insomnia (F51.04: Psychophysiologic insomnia) Only taking Melatonin. Ordered: suvorexant, 10 mg = 1 tab(s), Oral, Once a day (at bedtime), # 10 tab(s), Refills(s) 0 Orders: metoprolol, 25 mg = 1 tab(s), Oral, Daily, # 30 tab(s), Refills(s) 0, other reason (Rx) metronidazole topical, 1 estephania, Vaginal, Once a day (at bedtime), 70 gm, Refill(s) 0, [facility]/pharmacy #[id number], 170, cm, 11/27/20 12:07:00 EDT, Height/Length Dosing, 135.4, kg, 11/11/20 11:28:00 EDT, Weight Dosing nystatin topical, 1 estephania, Topical, BID, 30 gram, Refill(s) 0, [id number], 170, cm, 08/10/22 15:03:00 EDT, Height/Length Dosing, 125.1, kg, 08/10/22 15:03:00 EDT, Weight Dosing temazepam, See Instructions, PRN for sleep, 3 caps po qhs x 1 week, then 2 caps po qhs x 1 week, then 1 cap po qhs x 1 week, then 1 cap po qhs every other day x 1 week then stop, # 45 cap(s), Refills(s) 0, Pharmacy: [id number], 170, cm, 08/10/22 15:03:... triamcinolone topical, 1 estephania, Topical, TID, 30 gram, Refill(s) 0, [id number], 170, cm, 10/14/20 10:46:00 EDT, Height/Length Dosing, 137.5, kg, 10/14/20 10:46:00 EDT, Weight Dosing MA Mamm Screen w/CAD if perf and 3D Prakash Follow-up With When Contact Information Donya BILLINGS DO, JOSELUIS In 3 months [address] [place] [address]- Additional Instructions: Problem List/Past Medical History Ongoing Anxiety BMI 40.0-44.9, adult Chronic bilateral low back pain Chronic insomnia Fibromyalgia GERD (gastroesophageal reflux disease) Hypervitaminosis D Medication management Moderate recurrent major depression Morbid obesity Other specified hypothyroidism Overactive bladder Panic attack Resistance to insulin Smoker Symptomatic PVCs Vitamin D deficiency Historical No qualifying data Procedure/Surgical History Injection of therapeutic substance into bladder wall (12/14/2021), Injection of therapeutic substance into bladder wall (01/07/2020), Injection of therapeutic substance into bladder wall (04/25/2017), robotic surgery converted to laparoscopic bilateral salpingectomy (11/27/2014), Lumbar epidural steroid injection (06/14/2013), Radiofrequency ablation of nerve root of lumbar spine using fluoroscop (more content not included)... Normal [facility] Comment on above: Result Comment: Elec tronically Signed By: Donya BILLINGS DO\.br\Date and Time Signed: 11/11/22 13:39 EDT Ambulatory Visit Summaryon 0 11-10-2022 Ambulatory Visit Summary LUPE PICKARD Loren :1975 Visit Date:11/10/2022 Ambulatory Visit Instructions Your Diagnosis Encounter for annual wellness visit (AWV) in Medicare patient BMI 40.0-44.9, adult Morbid obesity Screening mammogram, encounter for Other specified hypothyroidism Hypertension Your Care Team Attending Physician - Donya BILLINGS DO Primary Care Physician - Donya BILLINGS DO This Is Your Medications List alprazolam (alprazolam 0.5 mg Tab) baclofen (baclofen 20 mg Tab) calcium-vitamin D (calcium (as carbonate)-vitamin D 500 mg-200 intl units oral tablet) cholecalciferol (Vitamin D3 2000 intl units oral Tab) fluconazole (Diflucan 150 mg Tab) levothyroxine levothyroxine (Synthroid 125 mcg (0.125 mg) Tab) linaclotide (Linzess 145 mcg oral capsule) lubiprostone (lubiprostone 24 mcg Cap) magnesium oxide melatonin metoprolol (metoprolol 25 mg ER Tab) tramadol (traMADol 100 mg oral tablet) Procedures Performed Injection of therapeutic substance into bladder wall (12/14/2021), Injection of therapeutic substance into bladder wall (01/07/2020), Injection of therapeutic substance into bladder wall (04/25/2017), robotic surgery converted to laparoscopic bilateral salpingectomy (11/27/2014), Lumbar epidural steroid injection (06/14/2013), Radiofrequency ablation of nerve root of lumbar spine using fluoroscopic guidance (01/04/2013), Injection into facet joint of lumbar spine using fluoroscopic guidance (12/14/2012), Injection into facet joint of lumbar spine using fluoroscopic guidance (11/16/2012), Lumbar Selective Nerve Root Block (07/28/2012), Lumbar Selective Nerve Root Block (06/23/2012), Cystourethroscopy with dilation of urethral stricture (04/26/2011), section, essure procedure, LEEP procedure of cervix, Thyroidectomy. What to do next Scheduled Follow-Up Appointments Tuesday 9:15 AM EDT With: Donya OZUNA MD Where: [facility] [place] Invalid Interpretation Code [address] [place] [address]-\.br\ You Need to Complete the Following\.br\ MA Mamm Screen w/CAD if perf and 3D Prakash, 11/10/22, Routine, Order for Future Visit, Transport Mode: Ambulatory, Reason: Screening, No, Screening mammogram, encounter for, pp_set_radiology_subspecialty, Required & Missing, [facility]\.br\ Someone Will Contact You Regarding These Appointments\.br\ [facility] [place] Referral, Rheumatology, 11/12/22 9:41:00 EDT, Butterfly rash [facility] ED Note-Physicianon 11-09-19 ED Note-Physician [id number] Normal [facility] Troponin I High Sensitivityo n 11-06-2022 Troponin I High Sensitivity < 2.3 Normal 0.0-15.0 [facility] Comment on above: Result Comment: PERF ORMED BY: [place] [id number] PATHOLOGIST DIESEL AUTOMOTIVE TECHNICIAN WENDY CLARK M.D. Performed By: #### H S TROP ####[facility] [id number] [place] [id number] [facility] Troponin I.cardiac [Mass/vol ume] in Serum or Plasma by Detection limit <= 0.01 ng/Ordered By: Yogi Mcgraw on 11-06-2022 Troponin I.cardiac DL <= 0.0 1 ng/mL [Mass/Vol] < 2.3 pg/mL 0.0-15.0 [facility] XR chest 1V portableon 11-06 XR chest 1V portable [facility] Main [place] [id number] XRay Report Signed Patient: Lupe Pickard MR#: [id number] : 1975 Acct:[id number] Age/Sex: 47 / F ADM Date: 11/05/22 Loc: ER Room: Type: [facility] ER Attending Dr: Copies to: Yogi Mcgraw DO Ordering Provider: Yogi Mcgraw DO Date of Service: 11/05/22 XR/XR chest 1V portable: Chest Pain XR chest 1V portable 11/05/2022 9:54 PM SIGNS AND SYMPTOMS: Chest pain, shortness breath, heart palpitations PROTOCOL: Frontal radiograph of the chest COMPARISON: 09/20/2022 FINDINGS: The trachea is midline. The heart and mediastinal structures are within normal limits. The lung parenchyma is clear. The bony thorax is intact. XR/XR chest 1V portable IMPRESSION: No acute cardiopulmonary pathology. Impression dictated by: Ernie Roper M.D.11/06/2022 1:10 PM Dictation Location: [facility]--13 Transcribed By: BOB 11/06/22 1310 Dictated By: Ernie Roper II, MD 11/06/22 1309 Signed By: 11/06/22 1310 Normal [facility] Activated partial thrombopla stin time (aPTT) in platelet poor plasma by coagulation aOrdered By: Yogi Mcgraw on 11-05-2022 aPTT Coag (PPP) [Time] 31.7 s 25.1-36.5 [facility] B-Type Natriuretic Peptideon 11-05-2022 Natriuretic peptide B (Bld) [Mass/Vol] 16.0 pg/mL Normal 5-100 [facility] Comment on above: Result Comment: PERF ORMED BY: [facility] [address] [place] [address] PATHOLOGIST DIESEL AUTOMOTIVE TECHNICIAN WENDY CLARK M.D. Performed By: #### B MP, PT, BNP, PTT, CBC, HS TROP ####[facility] [id number] [place] [address] [facility] Basic Metabolic Panelon 06-0 Anion gap [Moles/Vol] 11.1 mmol/L Normal 6.0-15.0 [facility] Comment on above: Performed By: #### B MP, PT, BNP, PTT, CBC, HS TROP ####[facility] [id number] [place] [address] [facility] Calcium [Mass/Vol] 8.6 mg/dL Normal 8.6-10.[address] [facility] Comment on above: Performed By: #### B MP, PT, BNP, PTT, CBC, HS TROP ####[facility] [id number] [place] [address] [place] Chloride [Moles/Vol] 105 mmol/L Normal 98-107 [facility] Comment on above: Performed By: #### B MP, PT, BNP, PTT, CBC, HS TROP ####[place] [id number] [address] CO2 [Moles/Vol] 26.4 mmol/L Normal 21.0-31.0 [facility] Comment on above: Performed By: #### B MP, PT, BNP, PTT, CBC, HS TROP ####[place] [id number] [place] [id number] [facility] Creatinine [Mass/Vol] 0.58 mg/dL Low 0.60-1.20 [facility] Comment on above: Performed By: #### B MP, PT, BNP, PTT, CBC, HS TROP ####[place] [id number] [address] Creatinine Clr Calc Pharmacy 166.57 Normal [facility] Comment on above: Result Comment: PERF ORMED BY: [facility] [address] [facility] [address] PATHOLOGIST DIESEL AUTOMOTIVE TECHNICIAN WENDY CLARK M.D. Performed By: #### B MP, PT, BNP, PTT, CBC, HS TROP ####[address] GFR/1.73 sq M.predicted MDRD (S/P/Bld) [Vol rate/Area] mL/min/{1.73_m2} Normal [facility] Comment on above: Performed By: #### B MP, PT, BNP, PTT, CBC, HS TROP ####[place] [address] [place] [id number] [facility] Glucose [Mass/Vol] 74 mg/dL Normal 70-[address] [facility] Comment on above: Result Comment: [place] Glucose Reference Range is dependent on time and content of last meal. Glucose of more than 200 mg/dL in a nonstressed, ambulatory subject supports the diagnosis of Diabetes Mellitus. ADA recommended reference range Performed By: #### B MP, PT, BNP, PTT, CBC, HS TROP ####[address] [place] [address] [facility] Potassium [Moles/Vol] 3.5 mmol/L Normal 3.5-5.1 [facility] Comment on above: Performed By: #### B MP, PT, BNP, PTT, CBC, HS TROP ####[facility] [place] [address] [facility] Sodium [Moles/Vol] 139 mmol/L Normal 136-[address] [facility] Comment on above: Performed By: #### B MP, PT, BNP, PTT, CBC, HS TROP ####[facility] [place] [id number] [facility] Urea nitrogen [Mass/Vol] 10 mg/dL Normal 7-25 [facility] Comment on above: Performed By: #### B MP, PT, BNP, PTT, CBC, HS TROP ####[place] [address] [place] [id number] [facility] Basophils Auto (Bld) [#/Vol] Ordered By: Yogi Mcgraw on 11-05-2022 Basophils (Bld) [#/Vol] 0.1 10*3/uL 0.0-0.2 [facility] Basophils/100 WBC Auto (Bld) Ordered By: Yogi Mcgraw on 11-05-2022 Basophils/100 WBC (Bld) 0.8 % . F [facility] Calcium [Mass/volume] in Ser um or PlasmaOrdered By: Yogi Mcgraw on 11-05-2022 Calcium [Mass/Vol] 8.6 mg/dL 8.6-10.[address] [facility] Carbon dioxide, total [Moles /volume] in Serum or PlasmaOrdered By: Yogi Mcgraw on 11-05-2022 CO2 [Moles/Vol] 26.4 mmol/L 21.0-31.0 [facility] Chloride [Moles/volume] in S zakia or PlasmaOrdered By: Yogi Mcgraw on 11-05-2022 Chloride [Moles/Vol] 105 mmol/L 98-107 [facility] Complete Blood Count Auto Di ffon 11-05-2022 Basophils (Bld) [#/Vol] 0.1 10*3/uL Normal 0.0-0.2 [facility] Comment on above: Result Comment: PERF ORMED BY: [facility] [address] [place] [address] PATHOLOGIST DIESEL AUTOMOTIVE TECHNICIAN WENDY CLARK M.D. Performed By: #### B MP, PT, BNP, PTT, CBC, HS TROP ####[address] Basophils/100 WBC (Bld) 0.8 % Normal . F [facility] Comment on above: Performed By: #### B MP, PT, BNP, PTT, CBC, HS TROP ####[address] Eosinophils (Bld) [#/Vol] 0.1 10*3/uL Normal 0.0-0.45 [facility] Comment on above: Performed By: #### B MP, PT, BNP, PTT, CBC, HS TROP ####[address] Eosinophils/100 WBC (Bld) 0.9 % Normal . [facility] Comment on above: Performed By: #### B MP, PT, BNP, PTT, CBC, HS TROP ####[address] Erythrocyte distribution wid th (RBC) [Ratio] 14.2 % Normal 11.9-15.3 [facility] Comment on above: Performed By: #### B MP, PT, BNP, PTT, CBC, HS TROP ####[address] Hematocrit (Bld) [Volume fraction] 39.8 % Normal 34.0-46.4 [facility] Comment on above: Performed By: #### B MP, PT, BNP, PTT, CBC, HS TROP ####[address] Hemoglobin (Bld) [Mass/Vol] 13.8 g/dL Normal 11.8-15. 4 [facility] Comment on above: Performed By: #### B MP, PT, BNP, PTT, CBC, HS TROP ####[address] Lymphocytes (Bld) [#/Vol] 2.4 10*3/uL Normal 1.00-4.8 [facility] Comment on above: Performed By: #### B MP, PT, BNP, PTT, CBC, HS TROP ####[address] Lymphocytes/100 WBC (Bld) 20.0 % Normal . [facility] Comment on above: Performed By: #### B MP, PT, BNP, PTT, CBC, HS TROP ####[address] MCH (RBC) [Entitic mass] 30.3 pg Normal 24.7-34.3 [facility] Comment on above: Performed By: #### B MP, PT, BNP, PTT, CBC, HS TROP ####[address] MCV (RBC) [Entitic vol] 87.5 fL Normal 80-100 F [facility] Comment on above: Performed By: #### B MP, PT, BNP, PTT, CBC, HS TROP ####[address] Mean Corpuscular HGB Conc 34.7 g/dL Normal 32.0-35.0 [facility] Comment on above: Performed By: #### B MP, PT, BNP, PTT, CBC, HS TROP ####[address] Monocytes (Bld) [#/Vol] 0.7 10*3/uL Normal 0.0-0.8 [facility] Comment on above: Performed By: #### B MP, PT, BNP, PTT, CBC, HS TROP ####[address] Monocytes/100 WBC (Bld) 17.86 % Normal 0.00-20.00 F [facility] Comment on above: Performed By: #### B MP, PT, BNP, PTT, CBC, HS TROP ####[address] Monocytes/100 WBC (Bld) 5.8 % Normal . F [facility] Comment on above: Performed By: #### B MP, PT, BNP, PTT, CBC, HS TROP ####[address] Neutrophils (Bld) [#/Vol] 8.6 10*3/uL High 1.8-7.7 [facility] Comment on above: Performed By: #### B MP, PT, BNP, PTT, CBC, HS TROP ####[address] Neutrophils/100 WBC (Bld) 72.5 % Normal . [facility] Comment on above: Performed By: #### B MP, PT, BNP, PTT, CBC, HS TROP ####[address] NRBC% 0.1 /100{WBC} Normal 0-0.5 [facility] Comment on above: Performed By: #### B MP, PT, BNP, PTT, CBC, HS TROP ####[place] [id number] [facility] Platelet mean volume (Bld) [Entitic vol] 8.1 fL Normal 6.3-10.7 [facility] Comment on above: Performed By: #### B MP, PT, BNP, PTT, CBC, HS TROP ####[place] [id number] [facility] Platelets (Bld) [#/Vol] 336 10*3/uL Normal 150-450 [facility] Comment on above: Performed By: #### B MP, PT, BNP, PTT, CBC, HS TROP ####[place] [id number] [facility] RBC (Bld) [#/Vol] 4.55 10*6/uL Normal 3.60-5.[address] [facility] Comment on above: Performed By: #### B MP, PT, BNP, PTT, CBC, HS TROP ####[facility] WBC (Bld) [#/Vol] 11.9 10*3/uL High 3.8-11.[address] [facility] Comment on above: Performed By: #### B MP, PT, BNP, PTT, CBC, HS TROP ####[facility] Creatinine [Mass/volume] in Serum or PlasmaOrdered By: Yogi Mcgraw on 11-05-2022 Creatinine [Mass/Vol] 0.58 mg/dL 0.60-1.20 [facility] ECG 12 lead ECGon 11-05-2022 ECG 12 lead ECG [facility] Main [place] [address] [place] [address] Electrocardiograph Report Signed Patient: Lupe Pickard MR#: [id number] : 1975 Acct:[id number] Age/Sex: 47 / F ADM Date: 11/05/22 Loc: ER Room: Type: [facility] ER Attending Dr: Ordering Provider: Yogi Mcgraw DO Date of Service: 11/05/2202/19/2153 ECG/ECG 12 lead ECG: Chest Pain Copies to: Test Reason : Blood Pressure : 187/107 mmHG Vent. Rate : 117 BPM Atrial Rate : 117 BPM P-R Int : 140 ms QRS Dur : 068 ms QT Int : 328 ms P-R-T Axes : 050 -29 040 degrees QTc Int : 457 ms Sinus tachycardia Minimal voltage criteria for LVH, may be normal variant Confirmed by Yogi Mcgraw DO ([id number]) on 11/06/2022 6:35:53 AM Referred By: Electronically Signed By:Yogi Mcgraw DO Transcribed By: MUS Signed By Yogi Mcgraw DO 0635 Normal [facility] Eosinophils Auto (Bld) [#/Vo l]Ordered By: Yogi Mcgraw on 11-05-2022 Eosinophils (Bld) [#/Vol] 0.1 10*3/uL 0.0-0.45 [facility] Eosinophils/100 WBC Auto (Bl d)Ordered By: Yogi Mcgraw on 11-05-2022 Eosinophils/100 WBC (Bld) 0.9 % . [facility] Erythrocyte distribution wid th Auto (RBC) [Ratio]Ordered By: Yogi Mcgraw on 11-05-2022 Erythrocyte distribution wid th (RBC) [Ratio] 14.2 % 11.9-15.3 [facility] Glucose [Mass/volume] in Ser um or PlasmaOrdered By: Yogi Mcgraw on 11-05-2022 Glucose [Mass/Vol] 74 mg/dL 70-[address] [facility] Comment on above: ADA recommended refe rence rangeRandom Glucose Reference Range is dependent on time and content of last meal. Glucose of more than 200 mg/dL in a nonstressed, ambulatory subject supports the diagnosis of Diabetes Mellitus. Hematocrit Auto (Bld) [Volum e fraction]Ordered By: Yogi Mcgraw on 11-05-2022 Hematocrit (Bld) [Volume fraction] 39.8 % 3 4.0-46.4 [facility] Hemoglobin [Mass/volume] in BloodOrdered By: Yogi Mcgraw on 11-05-2022 Hemoglobin (Bld) [Mass/Vol] 13.8 g/dL 11.8-15. 4 [facility] Laboratory - CoagulationOrde red By: Yogi Mcgraw on 11-05-2022 PT Coag (PPP) [Time] 12.6 s 9.0-12.9 [facility] Leukocytes [#/volume] correc emily for nucleated erythrocytes in Blood by Automated counOrdered By: Yogi Mcgraw on 11-05-2022 WBC corrected for nucl RBC A uto (Bld) [#/Vol] 11.9 10*3/uL 3.8-11.6 [facility] Lymphocytes Auto (Bld) [#/Vo l]Ordered By: Yogi Mcgraw on 11-05-2022 Lymphocytes (Bld) [#/Vol] 2.4 10*3/uL 1.00-4.8 [facility] Lymphocytes/100 WBC Auto (Bl d)Ordered By: Yogi Mcgraw on 11-05-2022 Lymphocytes/100 WBC (Bld) 20.0 % . [facility] MCH Auto (RBC) [Entitic mass ]Ordered By: Yogi Mcgraw on 11-05-2022 MCH (RBC) [Entitic mass] 30.3 pg 24.7-34.3 [facility] MCHC Auto (RBC) [Mass/Vol]Or dered By: Yogi Mcgraw on 11-05-2022 MCHC (RBC) [Mass/Vol] 34.7 g/dL 32.0-35.0 [facility] MCV Auto (RBC) [Entitic vol] Ordered By: Yogi Mcgraw on 11-05-2022 MCV (RBC) [Entitic vol] 87.5 fL 80-100 F [facility] Magnesiumon 11-05-2022 Magnesium [Mass/Vol] 1.5 mg/dL Low 1.9-2.7 [facility] Comment on above: Result Comment: PERF ORMED BY: [facility] [address] [place] [address] PATHOLOGIST DIESEL AUTOMOTIVE TECHNICIAN WENDY CLARK M.D. Performed By: #### P HOS, MG ####[facility] [place] [id number] [facility] Magnesium [Mass/volume] in S zakia or PlasmaOrdered By: Yogi Mcgraw on 11-05-2022 Magnesium [Mass/Vol] 1.5 mg/dL 1.9-2.7 [facility] Monocyte distribution width [Entitic volume] in Blood by AutomatedOrdered By: Yogi Mcgraw on 11-05-2022 Monocyte distribution width Auto (Bld) [Entitic vol] 17.86 % 0.00-20.00 [facility] Monocytes Auto (Bld) [#/Vol] Ordered By: Yogi Mcgraw on 11-05-2022 Monocytes (Bld) [#/Vol] 0.7 10*3/uL 0.0-0.8 [facility] Monocytes/100 WBC Auto (Bld) Ordered By: Yogi Mcgraw on 11-05-2022 Monocytes/100 WBC (Bld) 5.8 % . F [facility] Natriuretic peptide B [Mass/ Vol]Ordered By: Ygoi Mcgraw on 11-05-2022 Natriuretic peptide B (Bld) [Mass/Vol] 16.0 pg/mL 5-100 [facility] Neutrophils Auto (Bld) [#/Vo l]Ordered By: Yogi Mcgraw on 11-05-2022 Neutrophils (Bld) [#/Vol] 8.6 10*3/uL 1.8-7.7 [facility] Neutrophils/100 WBC Auto (Bl d)Ordered By: Yogi Mcgraw on 11-05-2022 Neutrophils/100 WBC (Bld) 72.5 % . [facility] No Panel InformationOrdered By: Yogi Mcgraw on 11-05-2022 Estimated GFR (CKD-EPI) > 60.0 mL/Min [facility] Creatinine Clearanc e (Chem 166.57 [facility] Nucleated erythrocytes [Pres ence] in Blood by Automated countOrdered By: Yogi Mcgraw on 11-05-2022 Nucleated RBC Auto Ql (Bld) 0.1 /100{WBC} 0-0.5 [facility] Partial Thromboplastin Timeo n 11-05-2022 aPTT Coag (Bld) [Time] 31.7 s Normal 25.1-36.5 [facility] Comment on above: Result Comment: PERF ORMED BY: [facility] [address] [place] [address] PATHOLOGIST DIESEL AUTOMOTIVE TECHNICIAN WENDY CLARK M.D. Performed By: #### B MP, PT, BNP, PTT, CBC, HS TROP ####[facility] [id number] [place] [address] [facility] Phosphate [Mass/volume] in S zakia or PlasmaOrdered By: Yogi Mcgraw on 11-05-2022 Phosphate [Mass/Vol] 3.9 mg/dL 3.7-7.2 [facility] Phosphoruson 11-05-2022 Phosphate [Mass/Vol] 3.9 mg/dL Normal 3.7-7.2 [facility] Comment on above: Performed By: #### P HOS, MG ####[facility] [id number] [place] [address] [facility] Platelet mean volume Auto (B ld) [Entitic vol]Ordered By: Yogi Mcgraw on 11-05-2022 Platelet mean volume (Bld) [Entitic vol] 8.1 fL 6.3-10.7 [facility] Platelet poor plasma interna tional normalized ratio (INR) by coagulation assay (relatOrdered By: Yogi Mcgraw on 11-05-2022 INR Coag (PPP) [Relative time] 1.1 {INR} [facility] Comment on above: INR Therapeutic Rang e A) Pre- and Peroperative OAT started two weeks before surgery. NOT HIP SURGERY: 1.5 - 2.5 HIP SURGERY: 2 - 3B) Primary and secondary prevention of venous THROMBOSIS: 2 - 3C) Active venous thrombosis, pulmonary embolismand prevention of recurrent venous thrombosis: 2 - 3D) Prevention of arterial thromboembolismincluding patients with mechanical heart valves: 3 - 4.5 Platelets Auto (Bld) [#/Vol] Ordered By: Yogi Mcgraw on 11-05-2022 Platelets (Bld) [#/Vol] 336 10*3/uL 150-450 [facility] Potassium [Moles/volume] in Serum or PlasmaOrdered By: Yogi Mcgraw on 11-05-2022 Potassium [Moles/Vol] 3.5 mmol/L 3.5-5.1 [facility] Prothrombin Time INRon 11-05 INR Coag (PPP) [Relative time] 1.1 {INR} Normal [facility] Comment on above: Result Comment: INR Therapeutic Range A) Pre- and Peroperative OAT started two weeks before surgery. NOT HIP SURGERY: 1.5 - 2.5 HIP SURGERY: 2 - 3 B) Primary and secondary prevention of venous THROMBOSIS: 2 - 3 C) Active venous thrombosis, pulmonary embolism and prevention of recurrent venous thrombosis: 2 - 3 D) Prevention of arterial thromboembolism including patients with mechanical heart valves: 3 - 4.5 Performed By: #### B MP, PT, BNP, PTT, CBC, HS TROP ####[facility] [id number] [place] [address] [facility] PT Coag (PPP) [Time] 12.6 s Normal 9.0-12.9 [facility] Comment on above: Performed By: #### B MP, PT, BNP, PTT, CBC, HS TROP ####[facility] [place] [address] [facility] RBC Auto (Bld) [#/Vol]Ordere d By: Yogi Mcgraw on 11-05-2022 RBC (Bld) [#/Vol] 4.55 10*6/uL 3.60-5.[address] [facility] Serum or plasma anion gap de terminationOrdered By: Yogi Mcgraw on 11-05-2022 Anion gap [Moles/Vol] 11.1 mmol/L 6.0-15.0 [facility] Sodium [Moles/volume] in Ser um or PlasmaOrdered By: Yogi Mcgraw on 11-05-2022 Sodium [Moles/Vol] 139 mmol/L 136-[address] [facility] Troponin I High Sensitivityo n 11-05-2022 Troponin I High Sensitivity 2.9 pg/mL Normal 0.0-15.0 [facility] Comment on above: Result Comment: PERF ORMED BY: [facility] [address] [facility] [place] [id number] PATHOLOGIST DIESEL AUTOMOTIVE TECHNICIAN WENDY CLARK M.D. Performed By: #### B MP, PT, BNP, PTT, CBC, HS TROP ####[facility] [place] [address] [facility] Urea nitrogen [Mass/volume] in Serum or PlasmaOrdered By: Yogi Mcgraw on 11-05-2022 Urea nitrogen [Mass/Vol] 10 mg/dL 7-25 [facility] WBC Auto (Bld) [#/Vol]Ordere d By: Yogi Mcgraw on 11-05-2022 WBC (Bld) [#/Vol] 11.9 10*3/uL 3.8-11.[address] [facility] Cardiac Stress Teston 2022 Cardiac Stress Test [address], [address], [place] [address] Exercise Stress Test Patient Name: LUPE PICKARD Ordering Physician: [id number] Phillip Benjamin MD Study Date: 10/28/2022 Reading Physician: [id number] Ric Valverde MD, [facility] MRN/PID: [id number] Supervising Physician: [id number] Ric Valverde MD, [facility] Accession/Order#: [id number] Referring Physician: PHILLIP BENJAMIN Date of : 1975 PCP: Donya Billings MD Gender: F Fellow: Height: 170.18 cm Nurse: Randall Hinton RN Weight: 121.56 kg Dye Maker: REFUGIO BSA: 2.29 m2 Technologist: BMI: 41.98 Additional Staff: kg/m2 Age: 47 years cc report to: Patient Location: cc report to: [id number] Phillip Benjamin MD Study Type: Cardiac Stress Test Diagnosis/ICD: I47.1-Supraventricular tachycardia; R00.2-Palpitations; I49.3-Ventricular premature depolarization Indication: ATACH Procedure/CPT: Stress Test Interpretation-[id number]; Stress Test Supervision-[id number] Falls Risk: Low: Patient has low risk for sustaining a fall; environmental safety interventions in place. Study Details: Correct procedure and correct patient verified verbally. Patient History: Allergies: None. Patient Performance: The peak heart rate achieved was 162 bpm, which was 93 % of the age predicted target heart rate of 174 bpm. The resting blood pressure was 118/82 mmHg with a heart rate of 77 bpm. The standing blood pressure was 120/78 mmHg with a heart rate of 77 bpm. The patient's functional capacity was average. The patient developed fatigue during the stress exam. The symptoms resolved with rest. The blood pressure response was normal. The test was terminated due to: fatigue. Baseline ECG: Resting ECG showed normal sinus rhythm. Stress Stage Data: + +---+------+-------+ HR Sys BP Gray BP + +---+------+-------+ Baseline Resting 77 118 82 + +---+------+-------+ Baseline Standing 77 120 78 + +---+------+-------+ Stage I 126 128 86 + +---+------+-------+ Stage II 137 146 82 + +---+------+-------+ Stage III 162 158 80 + +---+------+-------+ Recovery ECG: The heart rate recovery was normal. + +---+------+-------+ HR Sys BP Gray BP + +---+------+-------+ Recovery I 162 158 80 + +---+------+-------+ Recovery II 122 156 86 + +---+------+-------+ Recovery III 98 134 88 + +---+------+-------+ Recovery IV 87 118 82 + +---+------+-------+ Summary: 1. 1_normal exercise stress test after completing 7 minutes on a John protocol, achieving 92% of predicted maximal heart rate and a workload of 8.5 METS. 2_no chest pain, ischemic ST segment abnormalities or cardiac arrhythmias induced by exercise 3_appropriate hemodynamic response to exercise with normal heart rate recovery and achievement of Deleon treadmill score of 7+ which is favorable. 2. Adequate level of stress achieved. [id number] Ric Valverde MD, [facility] Electronically signed on 10/29/2022 at 1:49:55 PM Final Normal [facility] Cardiac Stress Test -[facility] [place] Work Phone: Office Visit (Cardiology)on 10-13-2022 Follow-up visit Diagnoses/Problems Assessed Palpitations (785.1) (R00.2) PVC (premature ventricular contraction) (427.69) (I49.3) Morbid obesity with BMI of 40.0-44.9, adult (278.01,V85.41) (E66.01,Z68.41) Hypothyroidism (244.9) (E03.9) Former smoker (V15.82) (Z87.891) quit 01/28/22 Atrial tachycardia (427.89) (I47.1) Anxiety (300.00) (F41.9) Chest pain (786.50) (R07.9) Shortness of breath (786.05) (R06.02) Orders Atrial tachycardia, Chest pain, Palpitations, PVC (premature ventricular contraction), Shortness of breath Cardiac Stress Test; Status:Hold For - Scheduling,Retrospective Authorization; Requested for:[id number]; Atrial tachycardia, Palpitations, PVC (premature ventricular contraction) Echocardiogram; Status:Hold For - Scheduling,Retrospective Authorization; Requested for:[id number]; Morbid obesity with BMI of 40.0-44.9, adult Healthy Weight Tips; Status:Complete - Retrospective Authorization; Done: [id number] Some eating tips that can help you lose weight.; Status:Complete - Retrospective Authorization; Done: [id number] SocHx: Former smoker Tobacco Use Screening; Status:Complete; Done: [id number] Patient Instructions Please bring all medicines, vitamins, and herbal supplements with you when you come to the office. Prescriptions will not be filled unless you are compliant with your follow up appointments or have a follow up appointment scheduled as per instruction of your physician. Refills should be requested at the time of your visit. Follow up after testing completed Chief Complaint 09-22-22. LUPE PICKARD is being seen for follow-up of a hospitalization for. History of Present Illness Patient is here for earlier follow-up to discuss recent symptoms. She was seen recently for symptoms of palpitation, obesity and hypertension. She recently had a visit to the emergency room because of elevated blood pressure and increasing symptoms of palpitation. Her evaluation in the emergency room was benign. Patient admits to very high level of anxiety and admits that she was having some vague symptoms of walking on needles but all her symptoms seem to resolve spontaneously. She continues to complain of palpitation she is concerned that an episode of NSVT was documented on the monitor. The patient reports she is reasonably active. She denies lightheadedness, dizziness or syncope. She continues to complain of insomnia and back pain and she has been seen the pain specialist for that. Plan 1. Symptoms of palpitation documentation on event monitor of PVCs and 2 brief run of nonsustained ventricular tachycardia 1 is 3 beat and the other is 5 beat. Episode of atrial tachycardia was seen. She initially reported improvement of her palpitation with low-dose metoprolol and magnesium but recently has been having on and off symptoms. 2. Patient reports intermittent episodes of shortness of breath and atypical chest pain 3. Obesity 4. Previous documentation of rare PVCs and PACs on Holter monitor 5. MRI recently suggestive of possible partially empty sella turcica 6. No evidence of coronary artery disease or heart failure clinically 7. Hypothyroidism on treatment 8. Few very atypical nonexertional chest pain she admits to high level of anxiety 9. Hypertension with occasional reading could be related to anxiety and pain Plan 1. I advised the patient to continue present medical regimen and continue to monitor her blood pressure once or twice weekly 2. I did have an event monitor with her 3. I encouraged her to lose weight and exercise 4. I advised to notify me change in cardiac status or symptoms 5. I commended to proceed with an echocardiogram and GXT in view of her recent complaint of shortness of breath and intermittent chest pain I did discuss with her the possibility of EP referral if continues to have palpitation but I clearly indicated that I suspect that her ectopy is of a benign prognosis 6. We will see her back in 4 months or earlier if the need arise Surgical History Problems History of Back surgery History of section History of Complete colonoscopy History Of Prior Surgery History of Hysterectomy History of Thyroidectomy Past Medical History Problems History of Benign intracranial hypertension (348.2) (G93.2) History of arthritis (V13.4) (Z87.39) History of depression (V11.8) (Z86.59) History of fibromyalgia (V13.59) (Z87.39) History of gastritis (V12.79) (Z87.19) History of Graves' disease (V12.29) (Z86.39) History of Myopia with astigmatism (367.1,367.20) (H52.10,H52.209) Current Meds Medication NameInstruction ALPRAZolam 0.5 MG Oral TabletTAKE 1 TABLET BY MOUTH EVERY DAY Baclofen 10 MG Oral TabletTAKE 1 TABLET TWICE DAILY. Levothyroxine Sodium 112 MCG Oral TabletTAKE 1 TABLET DAILY. Linzess 145 MCG Oral CapsuleTAKE 1 CAPSULE Daily Liothyronine Sodium 5 MCG Oral Tablettake 1 tablet by mouth twice a day Magnesium Oxide 400 MG Oral TabletTAKE 1 TABLET TWICE DAILY. Melato (more content not included)... Normal [employer] Tobacco Screening.on 023 Tobacco use status [facility]PH[facility] b) No M [address] Work Phone: Consent for Procedure/Surger yon 10-04-2022 Consent for Procedure/Surgery [id number]:127 Normal [facility] Consent for Treatmenton Consent for Treatment [id number]:127 Normal [facility] Inpatient Patient Summaryon 10-04-2022 Inpatient Patient Summary [address] [address] Clinical Summary Person Information Name: LUPE PICKARD Age: 47 Years : 1975 Sex: Female PCP: Donya BILLINGS DO Marital Status: Single Phone: [phone] Race: White Ethnicity: Non- or Language: Sammarinese Visit Id: Visit Reason: URINARY INCONTINENCE Speciality: Acuity: Enc Type: Outpatient Med Service: Surgery Arrival: 10/04/2022 12:36:01 Discharge: Dispo Type: Address: [address] [facility] [id number] Provider Notes: Diagnosis: Problems Active Yeast dermatitis Morbid obesity Symptomatic PVCs Anxiety Panic attack Medication management BMI 40.0-44.9, adult Urinary retention Urge incontinence Chronic insomnia Moderate recurrent major depression Resistance to insulin Edema Chronic bilateral low back pain Other specified hypothyroidism Smoker Overactive bladder Hypervitaminosis D GERD (gastroesophageal reflux disease) Vitamin D deficiency Fibromyalgia Smoking Status: Functional Status: Sensory Deficits: History of Falls: Mobility Assistance Prior to Admission: ADLs: Current Level of Assistance for Self-Care/Mobility: Cognitive Status: Allergies Effexor (Dreams) Laboratory or Other Results This Visit (last charted value for your 10/04/2022 visit) No Laboratory or Other Results This Visit Measurements: Height: 170 cm Weight: 136 kg Blood Pressure: Not Valued / Not Valued BMI: 47.06 kg/m2 Procedures No Procedures Documented Immunizations No Immunizations Documented This Visit Final Med List: alprazolam (alprazolam 0.5 mg Tab) 1 Tablets By Mouth every day. 30 days. Refills: 2. baclofen (baclofen 20 mg Tab) By Mouth 3 times a day. calcium-vitamin D (calcium (as carbonate)-vitamin D 500 mg-200 intl units oral tablet) 1 Tablets By Mouth 2 times a day. Refills: 5. cephalexin (Keflex 500 mg Cap) 1 Capsules By Mouth 2 times a day for 7 Days. Start the day before the procedure.. Refills: 0. cholecalciferol (Vitamin D3 2000 intl units oral Tab) 50 Microgram By Mouth every day. Refills: 2. levothyroxine (Synthroid 125 mcg (0.125 mg) Tab) TAKE 1 TABLET BY MOUTH DAILY IN THE MORNING ON AN EMPTY STOMACH. linaclotide (Linzess 145 mcg oral capsule) By Mouth every day. liothyronine (liothyronine 5 mcg Tab) TAKE 1 TABLET BY MOUTH TWICE A DAY. lubiprostone (lubiprostone 24 mcg Cap) 1 Capsules By Mouth 2 times a day. Refills: 5. melatonin 10 Milligram By Mouth once a day (at bedtime). metoprolol (Metoprolol tartrate 25 mg Tab) 0.5 Tablets By Mouth 2 times a day. Refills: 2. metronidazole topical (MetroGel-Vaginal 0.75% Gel) 1 Application Vaginal once a day (at bedtime). Refills: 0. nystatin topical (nystatin Top 100,000 units/g Crm 15 gram) 1 Application Topical 2 times a day. Refills: 0. suvorexant (Belsomra 10 mg oral tablet) 1 Tablets By Mouth once a day (at bedtime). Refills: 0. temazepam (Restoril 7.5 mg Cap) 3 caps po qhs x 1 week, then 2 caps po qhs x 1 week, then 1 cap po qhs x 1 week, then 1 cap po qhs every other day x 1 week then stop; as needed for sleep. Refills: 0. tramadol (traMADol 100 mg oral tablet) 1 Tablets By Mouth 3 times a day. triamcinolone topical (triamcinolone topical 0.1% cream) 1 Application Topical 3 times a day. Refills: 0. Care Team Members: Attending Physician: Donya OZUNA MD Consulting Physician: Referring Physician: Donya OZUNA MD Follow up: With: Address: When: [address], [address], [place] [id number] [facility] (1) Comments: Please follow up in four months. Have a great day! Type Location Start Finish State [facility] Medicare Wellness Subsequent [facility] 11/10/2022 1:00 PM 11/10/2022 2:00 PM Confirmed FM Open [facility] 11/11/2022 1:00 PM 11/11/2022 1:20 PM Confirmed [place] [facility] [place] 02/01/2023 9:15 AM 02/01/2023 9:30 AM Confirmed Patient Education Information: EU - Cystoscopy with Botox Injection Discharge Instructions (Custom) Normal [facility] IntraOperative Documentson 0 10-04-2022 IntraOperative Documents [id number]:127 [facility] Main OR Intraoperative Recor don 10-04-2022 Main OR Intraoperative Record IntraOp Document Type FTURO Summary Primary Physician: Donya OZUNA MD Finalized Date/Time: 10/04/22 13:37:34 Pt. Name: LUPE PICKARD Loren Hodges/Sex: 1975 Female Med Rec #: [id number] Physician: Donya OZUNA MD Financial #: [id number] Pt. Type: O Room/Bed: / Admit/Disch: 10/04/22 12:36:01 - Institution: Case Times FTURO Entry 1 Patient Times In Room 10/04/22 13:20:00 Out Room 10/04/22 13:34:00 Procedure Times Start 10/04/22 13:23:00 Stop 10/04/22 13:29:00 Anesthesia Times Last Modified By: Vanna CHRISTIE, ROSARIOOR, Humera 10/04/22 13:30:37 Case Attendance FTURO Entry 1 Entry 2 Entry 3 Case Attendee MARGOT PELAYO, Donya Prabhakar RN, CNOR, Mitch FELIX, Charlee Grubbs Role Performed Surgeon - Primary Sustainable Design Coordinator - Primary Scrub - Primary Time In 10/04/22 13:20:00 10/04/22 13:20:00 10/04/22 13:20:00 Time Out 10/04/22 13:34:00 10/04/22 13:34:00 10/04/22 13:34:00 Procedure CYSTOSCOPY LOCAL BOTOX CYSTOSCOPY LOCAL BOTOX CYSTOSCOPY LOCAL BOTOX INJECTION(.) INJECTION(.) INJECTION(.) Comments Last Modified By: Vanna RN, CNOR, Vanna RN, CNOR, Vanna RN, CNOR, Humera 10/04/22 Humera 10/04/22 Humera 10/04/22 13:30:39 13:30:39 13:30:39 General Comments: dr alfaro res in room for procedure Surgical Procedures FTURO Entry 1 Procedure Description Procedure CYSTOSCOPY LOCAL BOTOX Modifiers . INJECTION Surgeon Description 100 UNITS BOTOX injection Primary Procedure Yes Primary Surgeon Donya OZUNA MD Start 10/04/22 13:23:00 Stop 10/04/22 13:29:00 Anesthesia Type Local Surgical Service Urology Wound Class 2 - Clean-Contaminated Last Modified By: Vanna CHRISTIE, ROSARIOOR, Humera 10/04/22 13:31:33 General Comments: botox 100 outdate 02/21 lot [id number] General Case Data FTURO Pre-Care Text: Classifies surgical wound, implements aseptic technique, initiates traffic control Entry 1 Case Information OR URO 1 FT Case Level None Wound Class 2 - Clean-Contaminated Specialty Urology Preop Diagnosis URINARY INCONTINENCE Postop Same As Preop Yes Postop Diagnosis URINARY INCONTINENCE Outcomes Met? Yes Last Modified By: WALT Prabhakar RN, Ruthann 10/04/22 12:46:53 Post-Care Text: The patient is free from signs and symptoms of infection EU IntraOp - FTURO Pre-Care Text: Implements protective measures prior to operative or invasive procedure, confirms identity before the operative or invasive procedure, verifies operative procedure, surgical site, and laterality Entry 1 EU Perioperative Protocols Procedure(s) CYSTOSCOPY LOCAL BOTOX Patient Identity Birthday, ID Band INJECTION(.) Verified (select at Check, Patient least 2): Participation Consents / H and P HandP, Surgery/Procedure Operative Site N/A Verified Consent Marking Verified Surgical Site Yes Laterality Verified n/a Verified Procedure Verified Yes Correct Patient Yes Position Verified Availability Equipment, Medication Time Out Donya OZUNA MD, Verified (If Participants WALT Prabhakar RN, Applicable) Mitch Grubbs CST, Charlee Kennedy Time Out Complete 10/04/22 13:23:00 Allergies Reviewed? Yes Allergies Reviewed Self/Patient With Body Position Low Lithotomy Prep Area perineal area Prep Agents Betadine Solution Skin. Condition Unable to Visualize Additional None Specimens Collected Vitals - EU Blood Pressure Pulse Respirations SPO2 EBL 0 IandO - EU Total Intake 0 mL Total Output 0 mL Outcomes Met? Yes Last Modified By: WALT Prabhakar RN, Ruthann 10/04/22 13:26:18 Post-Care Text: The patient is free from signs and symptoms of injury caused by extraneous objects Sign Out FTURO Entry 1 Before Patient Leaves OR Nurse verbally Yes Nurse verbally n/a confirms with the confirms with the team the name of team that the procedure(s) instrument, sponge, recorded and needle counts are correct (or N/A) Nurse verbally n/a Nurse verbally Yes confirms with the confirms with the team how the team whether there specimen is labeled are any equipment (including patient problems to be name), if applicable addressed Sign Out Complete 10/04/22 13:30:00 Last Modified By: WALT Prabhakar RN, Ruthann 10/04/22 13:30:46 Case Comments Finalized By: WALT Prabhakar RN, Ruthann Document Signatures Signed By: WALT Prabhakar RN, Ruthann 10/04/22 13:37 Normal [facility] Main OR Preoperative Recordo n 10-04-2022 Main OR Preoperative Record Holding Area Document Type FTURO Summary Primary Physician: Donya OZUNA MD Finalized Date/Time: 10/04/22 13:25:25 Pt. Name: LUPE PICKARD Loren Hodges/Sex: 1975 Female Med Rec #: [id number] Physician: Donya OZUNA MD Financial #: [id number] Pt. Type: O Room/Bed: / Admit/Disch: 10/04/22 12:36:01 - Institution: Case Times Holding FTURO Pre-Care Text: Verifies consent for planned procedure, identifies individual values and wishes concerning care, includes family members in perioperative teaching Secures patient's records' belongings, and valuables, maintains patient's dignity and privacy, and maintains patient confidentiality Entry 1 In Holding 10/04/22 12:47:00 Outcomes Met? Yes Last Modified By: Charlee Clement RN 10/04/22 12:47:33 Post-Care Text: The patient participates in decisions affecting his or her perioperative plan of care The patient's right to privacy is maintained Surgery Checklist FTURO Entry 1 Patient Birthday, ID Band Procedure History and Physical, Identification: Check, Patient Verification: Surgical Consent, With Participation Patient NPO after Midnight: n/a Personal Items: Jewelry Personal Items rings x 2; nose ring x 1 Limitations: up ad christiano Comment: Complaints of Pain: No Skin Integrity Dry, Warm Vitals - EU Blood Pressure 158/97 Pulse 66 bpm Respirations 16 br/min SPO2 94 % RN Reviewed Yes Last Modified By: Charlee Clement RN 10/04/22 12:49:42 Finalized By: WALT Prabhakar RN, Ruthann Document Signatures Signed By: Charlee Clement RN 10/04/22 13:12 Charlee Clement RN 10/04/22 12:49 WALT Prabhakar RN, Ruthann 10/04/22 13:25 Normal [facility] Operative Reporton 05-08-202 3 Operative Report Patient: LUPE PICKARD Age: 47 years Sex: Female : 1975 Associated Diagnoses: None Author: Donya OZUNA MD Procedure Operative Information Details: Date/ Time: 10/04/2022 13:36:00. 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 Post-Op Dx: Same. Anesthesia Type: Local. Procedure: Local Cystoscopy with botox injection. Complications: None. Risks/Benefits/Informed Consent: Surgical risks, benefits, details of the procedure have been explained to the patient, Full informed consent has been obtained. Intraoperative Information Prepped: Patient is brought back to the endoscopy suite, Female Prep (Patient is placed in modified dorso/lithotomy position, 5 cc 2% Xylocaine Jelly is placed per Urethra, Straight cath inserted to obtain urine specimen, 60 cc 2% Xylocaine liquid inserted into bladder, 5 additional cc 2% Xylocaine Jelly is placed per Urethra, Patient in sitting position for 20 min dwell), Urine Specimen Results Negative for infection, Patient prepped in the usual fashion with Betadine solution, 10 cc 2% Xylocaine Jelly is placed per Urethra, After waiting several minutes the Cystoscope is introduced. Procedure: The trigone was identified and evaluated, 20 template injection sites were identified, The bladder was instilled with enough saline to achieve adequate visualization for the injections, The needle was inserted approximately 2 mm into the detrusor spaced approximately 1 cm apart, A total of 20 injections with a 0.5 ml volume was delivered at each site for a total of 100 units of Botox. The Urethra is: Normal. Botox: 100 units. The ureteral orifices: Show efflux of clear urine. The Bladder is: Normal, Trabeculated Mild (1), No tumors, no stones. Devices Implanted: None. Removal: Cystoscope is removed, The patient tolerated it well. Postoperative Information Discharge: Patient is discharged home with antibiotic coverage, Follow up arranged, F/U four months. Normal [facility] Comment on above: Result Comment: Elec tronically Signed By: Donya OZUNA MD\.br\Date and Time Signed: 10/04/22 13:37 EDT Outpatient Surgery Discharge Instructionon 10-04-2022 Outpatient Surgery Discharge Instruction [id number]:127 Normal [facility] Outpatient Surgery Discharge Instruction Magdiel [address] [address] Patient Discharge Instructions PERSON INFORMATION Name: LUPE PICKARD Date of : 1975 Current Date: 10/04/2022 13:35:35 PHYSICIANS Admitting Physician: Donya OZUNA MD Comment: Discharge Diagnosis: LUPE PICKARD has been given the following list of follow-up instructions, prescriptions, and patient education materials: IF UNABLE TO CONTACT YOUR PHYSICIAN AND YOU FEEL IT IS AN EMERGENCY, GO TO THE NEAREST EMERGENCY ROOM OR CALL 911 Follow up: With: Address: When: Donya OZUNA [address] [place] [address], [address], [address] [address] Business (1) Comments: Please follow up in four months. Have a great day! Type Location Start Finish [facility] Medicare Wellness Subsequent [facility] 11/10/2022 1:00 PM 11/10/2022 2:00 PM Confirmed FM Open [facility] 11/11/2022 1:00 PM 11/11/2022 1:20 PM Confirmed [place] [facility] [place] 02/01/2023 9:15 AM 02/01/2023 9:30 AM Confirmed Comment: PATIENT EDUCATION INFORMATION Instructions: Cystoscopy with Botox injection ? Voiding after the procedure: there may be some pain, burning, urgency, frequency and blood tinged urine following the procedure. These symptoms usually resolve within 2-5 days. Drink the amount of fluid it takes to keep the urine pink to yellow or clear in color. Drinking enough water and fluids will help to ease any discomfort after your procedure. ? It may take a few days to a week to notice a gradual improvement in the overactive bladder symptoms. ? If you are having problems that seem out of the ordinary, please call. ? If unable to contact your physician and you feel it is an emergency, go to the nearest emergency room or call 911 ? Do not lift more than fifteen pounds for 1-2 days. If you see a lot of blood, you probably did too much. ? Diet ? you may resume your normal diet. ? Pain control ? You may take extra strength Tylenol or Motrin for discomfort. ? Call if you have a fever over 100 degrees. ICATARINO LISA M, have received the attached patient education materials/instructions and have verbalized understanding: May we do a follow up call? Yes No I was present when discharge instructions were given Patient Signature Date Clinican/Nurse Signature Date You may receive a survey from [employer] asking you to rate your care experience. Your feedback is important and will help us understand what we do well and how we can improve the quality of care we provide to you, your loved ones and our community. It?s an honor to serve you. Thank you for choosing [facility] Normal [facility] ED Note-Physicianon 09-22-19 ED Note-Physician [id number]:127 Normal [facility] B-Type Natriuretic Peptideon 09-20-2022 Natriuretic peptide B (Bld) [Mass/Vol] 22.0 pg/mL Normal 5-100 [facility] Comment on above: Result Comment: PERF ORMED BY: [facility] [address] [place] [address] PATHOLOGIST [employer]EL AUTOMOTIVE TECHNICIAN WENDY CLARK M.D. Performed By: #### T 4F, TSH3, DDIMER, HS TROP, PTT, CBC, BMP, BNP, MG, PT ####[address] Basic Metabolic Panelon 08-29 Anion gap [Moles/Vol] 10.1 mmol/L Normal 6.0-15.0 [facility] Comment on above: Performed By: #### T 4F, TSH3, DDIMER, HS TROP, PTT, CBC, BMP, BNP, MG, PT ####[address] Calcium [Mass/Vol] 8.6 mg/dL Normal 8.6-10.[address] [facility] Comment on above: Performed By: #### T 4F, TSH3, DDIMER, HS TROP, PTT, CBC, BMP, BNP, MG, PT ####[address] Chloride [Moles/Vol] 106 mmol/L Normal 98-107 [facility] Comment on above: Performed By: #### T 4F, TSH3, DDIMER, HS TROP, PTT, CBC, BMP, BNP, MG, PT ####[address] CO2 [Moles/Vol] 27.8 mmol/L Normal 21.0-31.0 [facility] Comment on above: Performed By: #### T 4F, TSH3, DDIMER, HS TROP, PTT, CBC, BMP, BNP, MG, PT ####[address] Creatinine [Mass/Vol] 0.67 mg/dL Normal 0.60-1.20 [facility] Comment on above: Performed By: #### T 4F, TSH3, DDIMER, HS TROP, PTT, CBC, BMP, BNP, MG, PT ####[place] [id number] [place] [id number] [facility] Creatinine Clr Calc Pharmacy 144.30 [facility] Comment on above: Performed By: #### T 4F, TSH3, DDIMER, HS TROP, PTT, CBC, BMP, BNP, MG, PT ####[place] [id number] [facility] GFR/1.73 sq M.predicted MDRD (S/P/Bld) [Vol rate/Area] mL/min/{1.73_m2} [facility] Comment on above: Performed By: #### T 4F, TSH3, DDIMER, HS TROP, PTT, CBC, BMP, BNP, MG, PT ####[address] Glucose [Mass/Vol] 98 mg/dL Normal 70-[address] [facility] Comment on above: Result Comment: [facility] Glucose Reference Range is dependent on time and content of last meal. Glucose of more than 200 mg/dL in a nonstressed, ambulatory subject supports the diagnosis of Diabetes Mellitus. ADA recommended reference range Performed By: #### T 4F, TSH3, DDIMER, HS TROP, PTT, CBC, BMP, BNP, MG, PT ####[place] [id number] [facility] Potassium [Moles/Vol] 3.9 mmol/L Normal 3.5-5.1 [facility] Comment on above: Performed By: #### T 4F, TSH3, DDIMER, HS TROP, PTT, CBC, BMP, BNP, MG, PT ####[place] [id number] [facility] Sodium [Moles/Vol] 140 mmol/L Normal 136-[address] [facility] Comment on above: Performed By: #### T 4F, TSH3, DDIMER, HS TROP, PTT, CBC, BMP, BNP, MG, PT ####[place] [id number] [facility] Urea nitrogen [Mass/Vol] 9 mg/dL Normal 7-25 [facility] Comment on above: Performed By: #### T 4F, TSH3, DDIMER, HS TROP, PTT, CBC, BMP, BNP, MG, PT ####[address] Complete Blood Count Auto Di ffon 09-20-2022 Basophils (Bld) [#/Vol] 0.0 10*3/uL Normal 0.0-0.2 [facility] Comment on above: Result Comment: PERF ORMED BY: [facility] [address] [place] [address] PATHOLOGIST DIESEL AUTOMOTIVE TECHNICIAN WENDY CLARK M.D. Performed By: #### T 4F, TSH3, DDIMER, HS TROP, PTT, CBC, BMP, BNP, MG, PT ####[address] Basophils/100 WBC (Bld) 0.4 % Normal . [facility] Comment on above: Performed By: #### T 4F, TSH3, DDIMER, HS TROP, PTT, CBC, BMP, BNP, MG, PT ####[address] Eosinophils (Bld) [#/Vol] 0.1 10*3/uL Normal 0.0-0.45 [facility] Comment on above: Performed By: #### T 4F, TSH3, DDIMER, HS TROP, PTT, CBC, BMP, BNP, MG, PT ####[address] Eosinophils/100 WBC (Bld) 0.6 % Normal . [facility] Comment on above: Performed By: #### T 4F, TSH3, DDIMER, HS TROP, PTT, CBC, BMP, BNP, MG, PT ####[address] Erythrocyte distribution wid th (RBC) [Ratio] 14.4 % Normal 11.9-15.3 [facility] Comment on above: Performed By: #### T 4F, TSH3, DDIMER, HS TROP, PTT, CBC, BMP, BNP, MG, PT ####[address] Hematocrit (Bld) [Volume fraction] 40.2 % Normal 34.0-46.4 [facility] Comment on above: Performed By: #### T 4F, TSH3, DDIMER, HS TROP, PTT, CBC, BMP, BNP, MG, PT ####[address] Hemoglobin (Bld) [Mass/Vol] 13.5 g/dL Normal 11.8-15. 4 [facility] Comment on above: Performed By: #### T 4F, TSH3, DDIMER, HS TROP, PTT, CBC, BMP, BNP, MG, PT ####[address] Lymphocytes (Bld) [#/Vol] 2.3 10*3/uL Normal 1.00-4.8 [facility] Comment on above: Performed By: #### T 4F, TSH3, DDIMER, HS TROP, PTT, CBC, BMP, BNP, MG, PT ####[address] Lymphocytes/100 WBC (Bld) 21.2 % Normal . [facility] Comment on above: Performed By: #### T 4F, TSH3, DDIMER, HS TROP, PTT, CBC, BMP, BNP, MG, PT ####[address] MCH (RBC) [Entitic mass] 29.3 pg Normal 24.7-34.3 [facility] Comment on above: Performed By: #### T 4F, TSH3, DDIMER, HS TROP, PTT, CBC, BMP, BNP, MG, PT ####[address] MCV (RBC) [Entitic vol] 87.6 fL Normal 80-100 F [facility] Comment on above: Performed By: #### T 4F, TSH3, DDIMER, HS TROP, PTT, CBC, BMP, BNP, MG, PT ####[address] Mean Corpuscular HGB Conc 33.5 g/dL Normal 32.0-35.0 [facility] Comment on above: Performed By: #### T 4F, TSH3, DDIMER, HS TROP, PTT, CBC, BMP, BNP, MG, PT ####[address] Monocytes (Bld) [#/Vol] 0.5 10*3/uL Normal 0.0-0.8 [facility] Comment on above: Performed By: #### T 4F, TSH3, DDIMER, HS TROP, PTT, CBC, BMP, BNP, MG, PT ####[address] Monocytes/100 WBC (Bld) 17.47 % Normal 0.00-20.00 [facility] Comment on above: Performed By: #### T 4F, TSH3, DDIMER, HS TROP, PTT, CBC, BMP, BNP, MG, PT ####[address] Monocytes/100 WBC (Bld) 4.5 % Normal . [facility] Comment on above: Performed By: #### T 4F, TSH3, DDIMER, HS TROP, PTT, CBC, BMP, BNP, MG, PT ####[address] Neutrophils (Bld) [#/Vol] 8.1 10*3/uL High 1.8-7.7 [facility] Comment on above: Performed By: #### T 4F, TSH3, DDIMER, HS TROP, PTT, CBC, BMP, BNP, MG, PT ####[address] Neutrophils/100 WBC (Bld) 73.3 % Normal . [facility] Comment on above: Performed By: #### T 4F, TSH3, DDIMER, HS TROP, PTT, CBC, BMP, BNP, MG, PT ####[place] [id number] NRBC% 0.0 /100{WBC} Normal 0-0.5 [facility] Comment on above: Performed By: #### T 4F, TSH3, DDIMER, HS TROP, PTT, CBC, BMP, BNP, MG, PT ####[address] Platelet mean volume (Bld) [Entitic vol] 8.1 fL Normal 6.3-10.7 [facility] Comment on above: Performed By: #### T 4F, TSH3, DDIMER, HS TROP, PTT, CBC, BMP, BNP, MG, PT ####[address] Platelets (Bld) [#/Vol] 329 10*3/uL Normal 150-450 [facility] Comment on above: Performed By: #### T 4F, TSH3, DDIMER, HS TROP, PTT, CBC, BMP, BNP, MG, PT ####[address] RBC (Bld) [#/Vol] 4.59 10*6/uL Normal 3.60-5.[address] [facility] Comment on above: Performed By: #### T 4F, TSH3, DDIMER, HS TROP, PTT, CBC, BMP, BNP, MG, PT ####[address] WBC (Bld) [#/Vol] 11.1 10*3/uL Normal 3.8-11.[address] [facility] Comment on above: Performed By: #### T 4F, TSH3, DDIMER, HS TROP, PTT, CBC, BMP, BNP, MG, PT ####[address] D-Dimer High Sensitivityon 0 4-24-2023 D-Dimer High Sensitivity < 200 Normal 0-243 [facility] Comment on above: Result Comment: The reference range for D-dimer is <243 ng/mL D-dimer units. D-dimer results must be used in conjunction with a clinical pretest probability (PTP) assessment model for deep vein thrombosis (DVT) and pulmonary embolism (PE). Results <230 ng/mL d-dimer units can be used as a negative predictor in patients with low or moderate probability for DVT/PE. Results above the exclusion threshold of 230 ng/ml D-dimer units for DVT/PE may indicate the need for further diagnostic testing. D-Dimer can be increased in hospitalized patients due to co-morbid conditions. PERFORMED BY: [place] [address] PATHOLOGIST DIESEL AUTOMOTIVE TECHNICIAN WENDY CLARK M.D. Performed By: #### T 4F, TSH3, DDIMER, HS TROP, PTT, CBC, BMP, BNP, MG, PT ####[facility] [id number] [place] [id number] [facility] ECG 12 lead ECGon 09-20-2022 ECG 12 lead ECG [facility] [place] [address] [place] [address] Electrocardiograph Report Signed Patient: Lupe Pickard MR#: [id number] : 1975 Acct:[id number] Age/Sex: 47 / F ADM Date: 09/20/22 Loc: ER Room: Type: [facility] ER Attending Dr: Ordering Provider: Magalys Carlos APRN Date of Service: 09/20/22 ECG/ECG 12 lead ECG: Recheck/Abnormal Lab/Rx Copies to: Test Reason : Blood Pressure : / mmHG Vent. Rate : 097 BPM Atrial Rate : 097 BPM P-R Int : 140 ms QRS Dur : 072 ms QT Int : 334 ms P-R-T Axes : 050 -10 021 degrees QTc Int : 424 ms Normal sinus rhythm Minimal voltage criteria for LVH, may be normal variant Borderline ECG When compared with ECG of 21-JUN-2022 11:59, No significant change was found Confirmed by PAULIE PORTER DO ([id number]) on 09/21/2022 1:16:02 AM Referred By: Electronically Signed By:PAULIE PORTER DO Transcribed By: MUS Signed By Paulie Porter DO 09/21 0116 Normal [facility] Free T4 (Free Thyroxine)on 0 09-20-2022 Free T4 [Mass/Vol] 0.91 ng/dL Normal 0.61-1.[address] [facility] Comment on above: Performed By: #### T 4F, TSH3, DDIMER, HS TROP, PTT, CBC, BMP, BNP, MG, PT ####[facility] [place] [id number] [facility] Magnesiumon 09-20-2022 Magnesium [Mass/Vol] 2.0 mg/dL Normal 1.9-2.7 [facility] Comment on above: Performed By: #### T 4F, TSH3, DDIMER, HS TROP, PTT, CBC, BMP, BNP, MG, PT ####[facility] Partial Thromboplastin Timeo n 09-20-2022 aPTT Coag (Bld) [Time] 29.1 s Normal 25.1-36.5 [facility] Comment on above: Performed By: #### T 4F, TSH3, DDIMER, HS TROP, PTT, CBC, BMP, BNP, MG, PT ####[place] [id number] Prothrombin Time INRon 09-20 INR Coag (PPP) [Relative time] 1.0 {INR} Normal [facility] Comment on above: Result Comment: INR Therapeutic Range A) Pre- and Peroperative OAT started two weeks before surgery. NOT HIP SURGERY: 1.5 - 2.5 HIP SURGERY: 2 - 3 B) Primary and secondary prevention of venous THROMBOSIS: 2 - 3 C) Active venous thrombosis, pulmonary embolism and prevention of recurrent venous thrombosis: 2 - 3 D) Prevention of arterial thromboembolism including patients with mechanical heart valves: 3 - 4.5 Performed By: #### T 4F, TSH3, DDIMER, HS TROP, PTT, CBC, BMP, BNP, MG, PT ####[facility] [place] [id number] [facility] PT Coag (PPP) [Time] 12.2 s Normal 9.0-12.9 [facility] Comment on above: Performed By: #### T 4F, TSH3, DDIMER, HS TROP, PTT, CBC, BMP, BNP, MG, PT ####[place] [id number] [facility] Thyroid Stimulating Hormoneo n 09-20-2022 TSH Qn 0.26 m[IU]/L Low 0.45-5.33 [facility] Comment on above: Result Comment: PERF ORMED BY: [place] [address] PATHOLOGIST DIESEL AUTOMOTIVE TECHNICIAN WENDY CLARK M.D. Performed By: #### T 4F, TSH3, DDIMER, HS TROP, PTT, CBC, BMP, BNP, MG, PT ####[place] [phone] [facility] Troponin I High Sensitivityo n 09-20-2022 Troponin I High Sensitivity 2.6 pg/mL Normal 0.0-15.0 [facility] Comment on above: Result Comment: PERF ORMED BY: [place] [address] PATHOLOGIST D[employer]EL AUTOMOTIVE TECHNICIAN WENDY CLARK M.D. Performed By: #### T 4F, TSH3, DDIMER, HS TROP, PTT, CBC, BMP, BNP, MG, PT ####[place] [id number] [facility] XR chest 2V*on 09-20-2022 XR chest 2V* [facility] [place] [address] XRay Report Signed Patient: Lupe Pickard MR#: [id number] : 1975 Acct:[id number] Age/Sex: 47 / F ADM Date: 09/20/22 Loc: ER Room: Type: [facility] ER Attending Dr: Copies to: Magalys Carlos APRN Ordering Provider: Magalys Carlos APRN Date of Service: 09/20/22 XR/XR chest 2V*: Recheck/Abnormal Lab/Rx Plain film chest2 view HISTORY:Elevated blood pressure. COMPARISON:11/19/2019 FINDINGS: SUPPORT DEVICES: None POSTSURGICAL CHANGES:None HEART: Within normal limits PULMONARY HEAVENLY:Within normal limits MEDIASTINUM:Unremarkable LUNGS AND PLEURA: No acute lung process, pleural effusion or pneumothorax identified. BONY STRUCTURES: Thoracic spondylosis ADDITIONAL FINDINGS None XR/XR chest 2V* IMPRESSION: No acute process. Impression dictated by: Rao Gresham M.D.09/20/2022 6:23 PM Dictation Location: [place] [address] Transcribed By: [facility] 09/20/221822 Dictated By: Rao Gresham DO 09/20/221822 Signed By: 09/20/221822 Normal [facility] CT thoracic spine wo conon 0 09-17-2022 CT thoracic spine wo con [facility] Main [place] [address] [place] [address] CT Scan Report Signed Patient: Lupe Pickard MR#: [id number] : 1975 Acct:[id number] Age/Sex: 47 / F ADM Date: 09/17/22 Loc: [facility] Room: Type: [facility] Attending Dr: Javad Leach Copies to: Javad Leach Ordering Provider: Javad Leach Date of Service: 09/17/22 CT/CT thoracic spine wo con: PAIN CT thoracic spine wo con 09/17/2022 1:21 PM HISTORY: Mid to low thoracic spine pain TECHNIQUE: Multi detector CT axial slices of the thoracic spine were obtained without IV contrast. Volumetric acquisition sagittal, coronal, and 3-D reconstructions were performed and reviewed on a separate workstation. CT was performed with one or more of the following dose reduction techniques: Automated exposure control, adjustment of the mA and/or kV according to patient size, or use of iterative reconstruction technique. COMPARISON: None FINDINGS: There is preservation of the vertebral body heights and intervertebral discs. There is anterior plate formation from T3-T4 through L1-L2. Facet hypertrophy is present, greatest on the right at T4- 5. No fractures or dislocations are seen. The alignment of the thoracic spine is normal. The paraspinous soft tissues are within normal limits. The visualized lung parenchyma is unremarkable. The visualized upper abdominal viscera is unremarkable. CT/CT thoracic spine wo con IMPRESSION: No acute bony abnormality or malalignment. Degenerative changes are present in the thoracic spine, as above. Impression dictated by: Ernie Roper M.D.09/17/2022 2:15 PM Dictation Location: RADIO-PC-12 Transcribed By: BOB 09/17/22 1415 Dictated By: Ernie Roper II, MD 09/17/22 1406 Signed By: 09/17/22 1415 [facility] Progress Noteson 09-02-2022 Bill Adjuster Authentication Interface Message Text CONSULTED BY: CC: Mid-thoracic back pain HPI: 47yo female who does not work secondary to being on disability from fibromyalgia and mental illness with a long history of mid-thoracic back pain. She adamantly denies any trauma. She denies any neurologic symptoms, NO lower extremities pain, numbness, tingling, weakness; NO upper extremity pain, numbness, tingling, weakness; NO symptoms of myelopathy, NO bowel/bladder symptoms. She has had many injections and procedures that affect her pain minimally for a short period. She has been told there's a thoracic disc herniation that may be causing her symptoms. For PMHx, PSHx, medications, allergies, SOCHx, ROS and FAMHx, please refer to the scanned New patient Questionnaire PHYSICAL EXAM: General: AXOX3, no acute distress she is moderately obese Lower extremities: She rises cautiously from a seated position. She can heel walk and toe walk and tandem walk with the aid of holding onto the table. She gets off the exam table without difficulty. 5/5 all muscle groups and sensation is globally intact to light touch L2-S1 dermatomes bilateral lower extremities. DTRs are normoactive unequal but difficult to elicit in her knee jerk and ankle jerk she has no clonus full nontender range of motion bilateral hips knees and ankles. Upper extremities: 5/5 all muscle groups sensation is globally intact to light touch C5-T1 dermatomes. DTRs are normoactive unequal biceps triceps brachioradialis; negative Uyen signs bilaterally. Full nontender range of motion bilateral shoulders elbows wrists. Spine: Cervical spine range of motion is full nontender she is tender to palpate the midline of her midthoracic spine. Lumbar spine range of motion fairly normal nontender. INVESTIGATIONS: Recent MRI of her thoracic spine as below minimal disc bulge at T8-9 only effacing the anterior cord but not displacing the cord and plenty of CSF posteriorly. IMPRESSION: 47yo female with significant midthoracic back pain asymptomatic thoracic disc herniation. PLAN: Told the patient I would like to do a CT scan of her thoracic spine as most of these are traumatic and have to do with rib subluxations or dislocations. Otherwise I think she should look into breast reduction surgery and possibly gastric bypass surgery. I do not recommend she focus on this likely asymptomatic disc herniation. We will call on the phone there is anything concerning on the CT scan of her thoracic spine. Otherwise she can follow up PRN. Normal [facility] Bill Adjuster Authentication Interface Message Text Patient was identified by name and date of . Susan Lomeli RN Patient at risk for falls:No Falls Risk protocol implemented: No Normal [facility] Lab Reportson 08-11-2022 Lab Reports [id number] :127 Normal [facility] A1C with Estimated Average G luon 08-10-2022 Glucose [Mass/Vol] 117 mg/dL Normal [facility] Comment on above: Result Comment: PERF ORMED BY: [facility] [address] [place] [address] PATHOLOGIST DIESEL AUTOMOTIVE TECHNICIAN WENDY CLARK M.D. Performed By: #### A 1C WT eA, LIPID, URMA, CBC ####[place] [id number] [place] [id number] [facility] HbA1c (Bld) [Mass fraction] 5.7 % High 4.3-5.6 [facility] Comment on above: Result Comment: Incr eased risk for diabetes: 5.7 - 6.4 diabetes: >6.4 glycemic control for adults with diabetes: <7.0 Performed By: #### A 1C WT eA, LIPID, URMA, CBC ####[place] [id number] [place] [id number] [facility] Alanine aminotransferase [En zymatic activity/volume] in Serum or PlasmaOrdered By: Kenyetta Dove on 08-10-2022 ALT [Catalytic activity/Vol] 14 U/L 7-52 [facility] Albumin [Mass/volume] in Ser um or Plasma by Bromocresol green (BCG) dye binding methoOrdered By: Kenyetta Dove on 08-10-2022 Albumin BCG dye [Mass/Vol] 4.0 g/dL 3.5-5.7 [facility] Alkaline phosphatase [Enzyma tic activity/volume] in Serum or PlasmaOrdered By: Kenyetta Dove on 08-10-2022 ALP [Catalytic activity/Vol] 43 U/L 34-104 [facility] Ambulatory Visit Summaryon 0 08-10-2022 Ambulatory Visit Summary LUPE PICKARD :1975 Visit Date:08/10/2022 Ambulatory Visit Instructions Your Diagnosis Chronic insomnia Panic attack Moderate recurrent major depression Symptomatic PVCs BMI 40.0-44.9, adult Morbid obesity Yeast dermatitis Your Care Team Attending Physician - Donya BILLINGS DO Primary Care Physician - Donya BILLINGS DO This Is Your Medications List fluconazole (fluconazole 100 mg Tab) metoprolol (Metoprolol tartrate 25 mg Tab) nystatin topical (nystatin Top 100,000 units/g Crm 15 gram) suvorexant (Belsomra 10 mg oral tablet) Contact prescribing physician if questions or concerns alprazolam (alprazolam 0.5 mg Tab) baclofen (baclofen 20 mg Tab) calcium-vitamin D (calcium (as carbonate)-vitamin D 500 mg-200 intl units oral tablet) levothyroxine (Synthroid 125 mcg (0.125 mg) Tab) linaclotide (Linzess 145 mcg oral capsule) liothyronine (liothyronine 5 mcg Tab) lubiprostone (lubiprostone 24 mcg Cap) melatonin metronidazole topical (MetroGel-Vaginal 0.75% Gel) temazepam (Restoril 30 mg Cap) tramadol (traMADol 100 mg oral tablet) triamcinolone topical (triamcinolone topical 0.1% cream) [Image Removed: STOP]Stop taking these medications amitriptyline (amitriptyline 25 mg Tab) busPIRone (busPIRone 15 mg Tab) Procedures Performed Injection of therapeutic substance into bladder wall (12/14/2021), Injection of therapeutic substance into bladder wall (01/07/2020), Injection of therapeutic substance into bladder wall (04/25/2017), robotic surgery converted to laparoscopic bilateral salpingectomy (11/27/2014), Lumbar epidural steroid injection (06/14/2013), Radiofrequency ablation of nerve root of lumbar spine using fluoroscopic guidance (01/04/2013), Injection into facet joint of lumbar spine using fluoroscopic guidance (12/14/2012), Injection into facet joint of lumbar spine using fluoroscopic guidance (11/16/2012), Lumbar Selective Nerve Root Block (07/28/2012), Lumbar Selective Nerve Root Block (06/23/2012), Cystourethroscopy with dilation of urethral stricture (04/26/2011), section, essure procedure, LEEP procedure of cervix, Thyroidectomy. Discharge Vitals Temperature (Temporal Artery) 36.2 ?C Heart Rate (Peripheral) 76 Height 170 cm Height 67 in Weight 125.1 kg Weight 275.22 lb BMI 43.29 What to do next Scheduled Follow-Up Appointments Tuesday 7:45 AM EDT Where: [facility] Tuesday 1:30 PM EDT Where: [facility] Tuesday 1:00 PM EDT Where: [facility] [place] Normal [facility] Aspartate aminotransferase [ Enzymatic activity/volume] in Serum or PlasmaOrdered By: Kenyetta Dove on 08-10-2022 AST [Catalytic activity/Vol] 10 U/L 13-39 [facility] Basophils Auto (Bld) [#/Vol] Ordered By: Kenyetta Dove on 08-10-2022 Basophils (Bld) [#/Vol] 0.0 10*3/uL 0.0-0.2 [facility] Basophils/100 WBC Auto (Bld) Ordered By: Kenyetta Dove on 08-10-2022 Basophils/100 WBC (Bld) 0.5 % . F [facility] Bilirubin.total [Mass/volume ] in Serum or PlasmaOrdered By: Kenyetta Dove on 08-10-2022 Bilirubin [Mass/Vol] 0.6 mg/dL 0.3-1.0 [facility] Calcium [Mass/volume] in Ser um or PlasmaOrdered By: Kenyetta Dove on 08-10-2022 Calcium [Mass/Vol] 9.0 mg/dL 8.6-10.[address] [facility] Carbon dioxide, total [Moles /volume] in Serum or PlasmaOrdered By: Kenyetta Dove on 08-10-2022 CO2 [Moles/Vol] 29.0 mmol/L 21.0-31.0 [facility] Chloride [Moles/volume] in S zakia or PlasmaOrdered By: Kenyetta Dove on 08-10-2022 Chloride [Moles/Vol] 104 mmol/L 98-107 [facility] Cholesterol [Mass/volume] in Serum or PlasmaOrdered By: Kenyetta Dove on 08-10-2022 Cholesterol [Mass/Vol] 145 mg/dL 140-200 [facility] Comment on above: Chol less than 200 m g/dl low riskChol 201-239 mg/dl borderline riskChol 240 mg/dl and greater high risk Cholesterol in LDL Calc [Mas s/Vol]Ordered By: Kenyetta Dove on 08-10-2022 Cholesterol in LDL [Mass/Vol] 64 mg/dL 0-100 [facility] Comment on above: LDL ATP III CLASSIFI CATIONLDL less than 100 mg/dL OptimalLDL 100-129 mg/dL Near or above optimalLDL 130-159 mg/dL Borderline highLDL 160-189 mg/dL HighLDL greater than 189 mg/dL Very high Cholesterol in VLDL Calc [Ma ss/Vol]Ordered By: Kenyetta Dove on 08-10-2022 Cholesterol in VLDL [Mass/Vol] 27 mg/dL [facility] Complete Blood Count Auto Di ffon 08-10-2022 Basophils (Bld) [#/Vol] 0.0 10*3/uL Normal 0.0-0.2 [facility] Comment on above: Result Comment: PERF ORMED BY: [facility] [address] [place] [address] PATHOLOGIST DIESEL AUTOMOTIVE TECHNICIAN WENDY CLARK M.D. Performed By: #### A 1C WT eA, LIPID, URMA, CBC ####[address] Basophils/100 WBC (Bld) 0.5 % Normal . F [facility] Comment on above: Performed By: #### A 1C WT eA, LIPID, URMA, CBC ####[address] Eosinophils (Bld) [#/Vol] 0.1 10*3/uL Normal 0.0-0.45 [facility] Comment on above: Performed By: #### A 1C WT eA, LIPID, URMA, CBC ####[address] Eosinophils/100 WBC (Bld) 1.3 % Normal . [facility] Comment on above: Performed By: #### A 1C WT eA, LIPID, URMA, CBC ####[address] Erythrocyte distribution wid th (RBC) [Ratio] 14.6 % Normal 11.9-15.3 [facility] Comment on above: Performed By: #### A 1C WT eA, LIPID, URMA, CBC ####[address] Hematocrit (Bld) [Volume fraction] 37.0 % Normal 34.0-46.4 [facility] Comment on above: Performed By: #### A 1C WT eA, LIPID, URMA, CBC ####[address] Hemoglobin (Bld) [Mass/Vol] 12.5 g/dL Normal 11.8-15. 4 [facility] Comment on above: Performed By: #### A 1C WT eA, LIPID, URMA, CBC ####[address] Lymphocytes (Bld) [#/Vol] 2.3 10*3/uL Normal 1.00-4.8 [facility] Comment on above: Performed By: #### A 1C WT eA, LIPID, URMA, CBC ####[address] Lymphocytes/100 WBC (Bld) 28.1 % Normal . [facility] Comment on above: Performed By: #### A 1C WTH eA, LIPID, URMA, CBC ####[address] MCH (RBC) [Entitic mass] 29.7 pg Normal 24.7-34.3 [facility] Comment on above: Performed By: #### A 1C WT eA, LIPID, URMA, CBC ####[address] MCV (RBC) [Entitic vol] 88.0 fL Normal 80-100 F [facility] Comment on above: Performed By: #### A 1C WT eA, LIPID, URMA, CBC ####[address] Mean Corpuscular HGB Conc 33.7 g/dL Normal 32.0-35.0 [facility] Comment on above: Performed By: #### A 1C WT eA, LIPID, URMA, CBC ####[address] Monocytes (Bld) [#/Vol] 0.3 10*3/uL Normal 0.0-0.8 [facility] Comment on above: Performed By: #### A 1C WT eA, LIPID, URMA, CBC ####[address] Monocytes/100 WBC (Bld) 3.9 % Normal . F [facility] Comment on above: Performed By: #### A 1C WTH eA, LIPID, URMA, CBC ####[address] Neutrophils (Bld) [#/Vol] 5.5 10*3/uL Normal 1.8-7.7 [facility] Comment on above: Performed By: #### A 1C WTH eA, LIPID, URMA, CBC ####[address] Neutrophils/100 WBC (Bld) 66.2 % Normal . [facility] Comment on above: Performed By: #### A 1C [facility] eA, LIPID, URMA, CBC ####[address] NRBC% 0.1 /100{WBC} Normal 0-0.5 [facility] Comment on above: Performed By: #### A 1C [facility] eA, LIPID, URMA, CBC ####[address] Platelet mean volume (Bld) [Entitic vol] 8.2 fL Normal 6.3-10.7 [facility] Comment on above: Performed By: #### A 1C [facility] eA, LIPID, URMA, CBC ####[address] Platelets (Bld) [#/Vol] 313 10*3/uL Normal 150-450 [facility] Comment on above: Performed By: #### A 1C [facility] eA, LIPID, URMA, CBC ####[address] RBC (Bld) [#/Vol] 4.20 10*6/uL Normal 3.60-5.[address] [facility] Comment on above: Performed By: #### A 1C [facility] eA, LIPID, URMA, CBC ####[address] WBC (Bld) [#/Vol] 8.3 10*3/uL Normal 3.8-11.[address] [facility] Comment on above: Performed By: #### A 1C [facility] eA, LIPID, URMA, CBC ####[address] Comprehensive Metabolic Pane eriberto 08-10-2022 Albumin [Mass/Vol] 4.0 g/dL Normal 3.5-5.[address] [facility] Comment on above: Order Comment: PT IS FASTING Performed By: #### T SH3, CMP ####[facility] [place] [address] [facility] Albumin/Globulin [Mass ratio] 1.7 {ratio} Normal [facility] Comment on above: Order Comment: PT IS FASTING Performed By: #### T SH3, CMP ####[facility] [place] [address] [facility] ALP [Catalytic activity/Vol] 43 U/L Normal 34-104 [facility] Comment on above: Order Comment: PT IS FASTING Performed By: #### T SH3, CMP ####[place] [id number] [place] [address] [facility] ALT [Catalytic activity/Vol] 14 U/L Normal 7-52 [facility] Comment on above: Order Comment: PT IS FASTING Performed By: #### T SH3, CMP ####[place] [address] [place] [address] [facility] Anion gap [Moles/Vol] 10.1 mmol/L Normal 6.0-15.0 [facility] Comment on above: Order Comment: PT IS FASTING Performed By: #### T SH3, CMP ####[place] [place] [address] [facility] AST [Catalytic activity/Vol] 10 U/L Low 13-39 [facility] Comment on above: Order Comment: PT IS FASTING Performed By: #### T SH3, CMP ####[place] [place] [address] [facility] Bilirubin [Mass/Vol] 0.6 mg/dL Normal 0.3-1.0 [facility] Comment on above: Order Comment: PT IS FASTING Performed By: #### T SH3, CMP ####[facility] [place] [address] [facility] Calcium [Mass/Vol] 9.0 mg/dL Normal 8.6-10.[address] [facility] Comment on above: Order Comment: PT IS FASTING Performed By: #### T SH3, CMP ####[place] [place] [address] [facility] Chloride [Moles/Vol] 104 mmol/L Normal 98-107 [facility] Comment on above: Order Comment: PT IS FASTING Performed By: #### T SH3, CMP ####[address] [address] [facility] CO2 [Moles/Vol] 29.0 mmol/L Normal 21.0-31.0 [facility] Comment on above: Order Comment: PT IS FASTING Performed By: #### T SH3, CMP ####[place] [id number] [facility] Creatinine [Mass/Vol] 0.52 mg/dL Low 0.60-1.20 [facility] Comment on above: Order Comment: PT IS FASTING Performed By: #### T SH3, CMP ####[place] [id number] [facility] GFR/1.73 sq M.predicted MDRD (S/P/Bld) [Vol rate/Area] mL/min/{1.73_m2} Normal [facility] Comment on above: Order Comment: PT IS FASTING Performed By: #### T SH3, CMP ####[address] [address] [facility] Globulin (S) [Mass/Vol] 2.3 g/dL Normal [facility] Comment on above: Order Comment: PT IS FASTING Performed By: #### T SH3, CMP ####[address] [address] [facility] Glucose [Mass/Vol] 98 mg/dL Normal 74-[address] [facility] Comment on above: Order Comment: PT IS FASTING Result Comment: [place] Glucose Reference Range is dependent on time and content of last meal. Glucose of more than 200 mg/dL in a nonstressed, ambulatory subject supports the diagnosis of Diabetes Mellitus. ADA recommended reference range Performed By: #### T SH3, CMP ####[address] [address] [facility] Potassium [Moles/Vol] 4.1 mmol/L Normal 3.5-5.1 [facility] Comment on above: Order Comment: PT IS FASTING Performed By: #### T SH3, CMP ####[address] [place] [address] [facility] Protein [Mass/Vol] 6.3 g/dL Low 6.4-8.[address] [facility] Comment on above: Order Comment: PT IS FASTING Performed By: #### T SH3, CMP ####[facility] [place] [address] [facility] Sodium [Moles/Vol] 139 mmol/L Normal 136-[address] [facility] Comment on above: Order Comment: PT IS FASTING Performed By: #### T SH3, CMP ####[facility] [place] [address] [facility] Urea nitrogen [Mass/Vol] 8 mg/dL Normal 7-25 [facility] Comment on above: Order Comment: PT IS FASTING Performed By: #### T SH3, CMP ####[place] [place] [address] [facility] Creatinine [Mass/volume] in Serum or PlasmaOrdered By: Kenyetta Dove on 08-10-2022 Creatinine [Mass/Vol] 0.52 mg/dL 0.60-1.20 [facility] Eosinophils Auto (Bld) [#/Vo l]Ordered By: Kenyetta Dove on 08-10-2022 Eosinophils (Bld) [#/Vol] 0.1 10*3/uL 0.0-0.45 [facility] Eosinophils/100 WBC Auto (Bl d)Ordered By: Kenyetta Dove on 08-10-2022 Eosinophils/100 WBC (Bld) 1.3 % . [facility] Erythrocyte distribution wid th Auto (RBC) [Ratio]Ordered By: Kenyetta Dove on 08-10-2022 Erythrocyte distribution wid th (RBC) [Ratio] 14.6 % 11.9-15.3 [facility] Estrogens, Totalon 3 Estrogens, Total 310 pg/mL Normal . [facility] Comment on above: Result Comment: Prep ubertal < 40 Female Cycle: 1-10 Days 16 - 328 11-20 Days 34 - 501 21-30 Days 48 - 350 Post-Menopausal 40 - 244 Performed at: BN - [facility] [address] [id number] Cotton Broker: Roger Kenny MD, Phone: [phone] Performed By: #### U A #### [place] [id number] [facility] Family Medicine Office/Clini c Noteon 08-10-2022 Family Medicine Office/Clinic Note Chief Complaint 3 month follow up HPI Staff Lupe is a 47 year old female who presents for a 3 month follow up for her controlled medications. She has a chronic history of anxiety and insomnia. She takes Restoril 30mg once daily at , as prescribed, denies any side effects. OARRS reviewed: Yes Medication Agreement updated: 10/20/21 Urine Drug Screen done: 02/11/22 Pill Count Done: No States she recently completed a 30 day event monitor (at [facility] and had a follow up with cardiology to review the results. She was started on Toprol and magnesium oxide. Reports that she took this for 5 days, but explains feeling like her head was wrapped in bubble wrap and underwater . States this feeling made her anxiety worse, and she discontinued the medications. She does not have another follow up scheduled with cardiology at this time. 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 C/O yeast infections under her breasts and in the skin folds of her abdomen. Also states that she has been following with pain management at [facility] for her Tramadol, however, there is a new physician that will be practicing there who refuses to prescribe patient both tramadol and Restoril. Asking for PCP to manage both the Restoril & Tramadol prescriptions. History of Present Illness I have reviewed and verified the staff HPI to be accurate for this encounter. Review of Systems PHQ Score Initial Depression Screen Score: 0 Constitutional: no fever, no chills, no sweats, no weakness Respiratory: no shortness of breath, no cough, no orthopnea, no wheezing Cardiovascular: no chest pain, no palpitations, no edema Additional ROS info: Except as noted in the above Review of Systems and in the History of Present Illness all other systems have been reviewed and are negative or noncontributory. Physical Exam Vitals & Measurements T: 36.2 ?C(Temporal Artery) HR: 76(Peripheral) SpO2: 96% HT: 67 in HT: 170 cm WT: 125.1 kg WT: 275.22 lb BMI: 43.29 General: alert, no acute distress ENMT: TM's clear, oral mucosa moist, no pharyngeal erythema or exudate Cardiovascular: regular rate and rhythm, normal peripheral perfusion Respiratory: Lungs CTA, respirations non labored Extremities: no deformity, no trauma Neurological: oriented x 4, LOC appropriate for age, CN II-XII intact, motor strength equal & normal bilaterally, sensation equal & normal bilaterally, speech normal Assessment/Plan 1. Chronic insomnia (F51.04: Psychophysiologic insomnia) She continues to do well on the Restoril. She failed management with ambien, lunesta, and trazodone. Her new pain management doctors are not going to write the Tramadol with the Benzodiazepines. Discussed Belsomra. She would like to try and if it works will wean off Restoril Ordered: suvorexant, 10 mg = 1 tab(s), Oral, Once a day (at bedtime), # 10 tab(s), Refills(s) 0 2. Panic attack (F41.0: Panic disorder [episodic paroxysmal anxiety]) can use the Xanax as needed. Since being off Buspirone her panic has been better. still has 3/4 of a bottle with her. 3. Moderate recurrent major depression (F33.1: Major depressive disorder, recurrent, moderate) She is currently managed without medication 4. 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 BMI 40.0-44.9, adult (Z68.41: Body mass index [BMI] 40.0-44.9, adult) 6. Morbid obesity (E66.01: Morbid (severe) obesity due to excess calories) 7. Yeast dermatitis (B37.2: Candidiasis of skin and nail) fluconazole weekly with Nystatin cream Orders: fluconazole, 100 mg = 1 tab(s), Oral, Daily, X 10 day(s), # 10 tab(s), Refills(s) 0, Pharmacy: [facility], 170, cm, 08/10/22 15:03:00 EDT, Height/Length Dosing, 125.1, kg, 08/10/22 15:03:00 EDT, Weight Dosing metoprolol, 12.5 mg = 0.5 tab(s), Oral, BID, # 30 tab(s), Refills(s) 2, Pharmacy: [facility], 170, cm, 08/10/22 15:03:00 EDT, Height/Length Dosing, 125.1, kg, 08/10/22 15:03:00 EDT, Weight Dosing nystatin topical, 1 estephania, Topical, BID, 30 gram, Refill(s) 0, [facility], 170, cm, 08/10/22 15:03:00 EDT, Height/Length Dosing, 125.1, kg, 08/10/22 15:03:00 EDT, Weight Dosing Total time spent preparing the chart, conducting of the encounter with the patient and family and time spent documenting, reviewing, and ordering tests was 40 minutes. Follow-up No qualifying data available Problem List/Past Medical History Ongoing Anxiety BMI 40.0-44.9, adult Chronic bilateral low back pain Chronic insomnia Edema Fibromyalgia GERD (gastroesophageal reflux disease) Hypervitaminosis D Medication management Moderate recurrent major depression Morbid obesity Other specified hypothyroidism Overactive bladder Panic attack Resistance to insulin Smoker Symptomatic PVCs Urge incontinence Urinary retention Vitam (more content not included)... Normal [facility] Comment on above: Result Comment: Elec tronically Signed By: Donya BILLINGS DO\.br\Date and Time Signed: 08/10/22 15:54 EDT Follicle Stimulating Hormone on 08-10-2022 Follicle Stimulating Hormone 5.9 m[iU]/mL Normal [facility] Comment on above: Result Comment: FEMA LE NORMALS (PREMENOPAUSE) MID-FOLLICULAR PHASE: 3.9-8.8 mIU/mL MID-CYCLE PEAK: 4.5-22.5 mIU/mL MID-LUTEAL PHASE: 1.8-5.1 mIU/mL FEMALE NORMALS (POSTMENOPAUSE): 16.7-113.6 mIU/mL MALE NORMALS: 1.3-19.3 mIU/mL Performed By: #### U A #### [address] Follitropin [Units/volume] i n Serum or PlasmaOrdered By: Kenyetta Dove on 08-10-2022 Follitropin Qn 5.9 m[IU]/mL [facility] Comment on above: FEMALE NORMALS (GERHARD ENOPAUSE) MID-FOLLICULAR PHASE: 3.9-8.8 mIU/mL MID-CYCLE PEAK: 4.5-22.5 mIU/mL MID-LUTEAL PHASE: 1.8-5.1 mIU/mLFEMALE NORMALS (POSTMENOPAUSE): 16.7-113.6 mIU/mLMALE NORMALS: 1.3-19.3 mIU/mL Free T4 (Free Thyroxine)on 0 08-10-2022 Free T4 [Mass/Vol] 0.80 ng/dL Normal 0.61-1.[address] [facility] Comment on above: Performed By: #### U A #### [address] Globulin Calc (S) [Mass/Vol] Ordered By: Kenyetta Dove on 08-10-2022 Globulin (S) [Mass/Vol] 2.3 g/dL F [facility] Glucose [Mass/volume] in Ser um or PlasmaOrdered By: Kenyetta Dove on 08-10-2022 Glucose [Mass/Vol] 98 mg/dL 74-[address] [facility] Comment on above: ADA recommended refe rence rangeRandom Glucose Reference Range is dependent on time and content of last meal. Glucose of more than 200 mg/dL in a nonstressed, ambulatory subject supports the diagnosis of Diabetes Mellitus. Glucose mean value [Mass/vol ume] in Blood Estimated from glycated hemoglobinOrdered By: Kenyetta Dove on 08-10-2022 Average glucose Estimated fr om glycated hemoglobin (Bld) [Mass/Vol] 117 mg/dL [facility] Hematocrit Auto (Bld) [Volum e fraction]Ordered By: Kenyetta Dove on 08-10-2022 Hematocrit (Bld) [Volume fraction] 37.0 % 3 4.0-46.4 [facility] Hemoglobin A1c percentageOrd ered By: Kenyetta Dove on 08-10-2022 HbA1c (Bld) [Mass fraction] 5.7 % 4.3-5.6 [facility] Comment on above: Increased risk for d iabetes: 5.7 - 6.4diabetes: >6.4glycemic control for adults with diabetes: <7.0 Hemoglobin [Mass/volume] in BloodOrdered By: Kenyetta Dove on 08-10-2022 Hemoglobin (Bld) [Mass/Vol] 12.5 g/dL 11.8-15. 4 [facility] Laboratory - Chemistry and C hemistry - challengeOrdered By: Kenyetta Dove on 08-10-2022 GFR/1.73 sq M.predicted MDRD (S/P/Bld) [Vol rate/Area] mL/min/{1.73_m2} [facility] Leukocytes [#/volume] correc emily for nucleated erythrocytes in Blood by Automated counOrdered By: Kenyetta Dove on 08-10-2022 WBC corrected for nucl RBC A uto (Bld) [#/Vol] 8.3 10*3/uL 3.8-11.6 [facility] Lipid Panelon 08-10-2022 Cholesterol [Mass/Vol] 145 mg/dL Normal 140-200 [facility] Comment on above: Result Comment: Chol less than 200 mg/dl low risk Chol 201-239 mg/dl borderline risk Chol 240 mg/dl and greater high risk Performed By: #### A 1C WT eA, LIPID, URMA, CBC ####[facility] [address] [place] [address] [facility] Cholesterol in HDL [Mass/Vol] 53 mg/dL Normal 35-85 [facility] Comment on above: Result Comment: HDL CHOL ATP-III CLASSIFICATION Cardiovascular Risk HDL > or equal to 60 mg/dL LOW HDL < 40 mg/dL HIGH Performed By: #### A 1C WTH eA, LIPID, URMA, CBC ####[facility] [address] [place] [address] [facility] Cholesterol.total/Cholestero l in HDL [Mass ratio] 2.7 {ratio} Normal <5.0 [facility] Comment on above: Result Comment: PERF ORMED BY: [facility] [address] [place] [id number] PATHOLOGIST [employer] AUTOMOTIVE TECHNICIAN WENDY CLARK M.D. Performed By: #### A 1C [facility] eA, LIPID, URMA, CBC ####[facility] [place] [id number] [facility] LDL Cholesterol,Calculated 64 mg/dL Normal 0-100 [facility] Comment on above: Result Comment: LDL ATP III CLASSIFICATION LDL less than 100 mg/dL Optimal LDL 100-129 mg/dL Near or above optimal LDL 130-159 mg/dL Borderline high LDL 160-189 mg/dL High LDL greater than 189 mg/dL Very high Performed By: #### A 1C WT eA, LIPID, URMA, CBC ####[facility] [place] [id number] [facility] Triglyceride w/Reflex 139 mg/dL Normal 0-149 [facility] Comment on above: Result Comment: TRIG ATP III CLASSIFICATION TRIG less than 150 mg/dL Normal TRIG 150-199 mg/dL Borderline high TRIG 200-500 mg/dL High TRIG greater than 500 mg/dL Very high Standard traceable to the Center for Disease Conrtrol and Prevention (CDC) test method. Performed By: #### A 1C [facility] eA, LIPID, URMA, CBC ####[facility] VLDL CHOLESTEROL 27 mg/dL Normal [facility] Comment on above: Performed By: #### A 1C [facility] eA, LIPID, URMA, CBC ####[facility] [place] [id number] [facility] Luteinizing Hormoneon 2022 Luteinizing Hormone 14.0 m[iU]/mL Normal . [facility] Comment on above: Result Comment: Adul t Female: Follicular phase 2.4 - 12.6 Ovulation phase 14.0 - 95.6 Luteal phase 1.0 - 11.4 Postmenopausal 7.7 - 58.5 Performed By: #### U A #### [facility] [address] Lymphocytes Auto (Bld) [#/Vo l]Ordered By: Kenyetta Dove on 08-10-2022 Lymphocytes (Bld) [#/Vol] 2.3 10*3/uL 1.00-4.8 [facility] Lymphocytes/100 WBC Auto (Bl d)Ordered By: Kenyetta Dove on 08-10-2022 Lymphocytes/100 WBC (Bld) 28.1 % . [facility] MCH Auto (RBC) [Entitic mass ]Ordered By: Kenyetta Dove on 08-10-2022 MCH (RBC) [Entitic mass] 29.7 pg 24.7-34.3 [facility] MCHC Auto (RBC) [Mass/Vol]Or dered By: Kenyetta Dove on 08-10-2022 MCHC (RBC) [Mass/Vol] 33.7 g/dL 32.0-35.0 [facility] MCV Auto (RBC) [Entitic vol] Ordered By: Kenyetta Dove on 08-10-2022 MCV (RBC) [Entitic vol] 88.0 fL 80-100 F [facility] Microalbumin [Mass/volume] i n UrineOrdered By: Kenyetta Dove on 08-10-2022 Albumin DL <= 20 mg/L (U) [Mass/Vol] mg/dL 0.0-1.8 [facility] Microalbumin, Urine (Random) on 08-10-2022 Albumin DL <= 20 mg/L (U) [Mass/Vol] mg/dL Normal 0.0-1.8 [facility] Comment on above: Result Comment: PERF ORMED BY: [facility] [address] [place] [address] PATHOLOGIST [employer]EL AUTOMOTIVE TECHNICIAN WENDY CLARK M.D. Performed By: #### A 1C [facility] eA, LIPID, URMA, CBC ####[facility] [address] [place] [address] [facility] Monocytes Auto (Bld) [#/Vol] Ordered By: Kenyetta Dove on 08-10-2022 Monocytes (Bld) [#/Vol] 0.3 10*3/uL 0.0-0.8 [facility] Monocytes/100 WBC Auto (Bld) Ordered By: Kenyetta Dove on 08-10-2022 Monocytes/100 WBC (Bld) 3.9 % . [facility] Neutrophils Auto (Bld) [#/Vo l]Ordered By: Kenyetta Dove on 08-10-2022 Neutrophils (Bld) [#/Vol] 5.5 10*3/uL 1.8-7.7 [facility] Neutrophils/100 WBC Auto (Bl d)Ordered By: Kenyetta Dove on 08-10-2022 Neutrophils/100 WBC (Bld) 66.2 % . [facility] No Panel InformationOrdered By: Kenyetta Dove on 08-10-2022 Pharmacy Creatinine Clearance (Chem N/A [facility] Nucleated erythrocytes [Pres ence] in Blood by Automated countOrdered By: Kenyetta Dove on 08-10-2022 Nucleated RBC Auto Ql (Bld) 0.1 /100{WBC} 0-0.5 [facility] Platelet mean volume Auto (B ld) [Entitic vol]Ordered By: Kenyetta Dove on 08-10-2022 Platelet mean volume (Bld) [Entitic vol] 8.2 fL 6.3-10.7 [facility] Platelets Auto (Bld) [#/Vol] Ordered By: Kenyetta Dove on 08-10-2022 Platelets (Bld) [#/Vol] 313 10*3/uL 150-450 [facility] Potassium [Moles/volume] in Serum or PlasmaOrdered By: Kenyetta Dove on 08-10-2022 Potassium [Moles/Vol] 4.1 mmol/L 3.5-5.1 [facility] Progesteroneon 08-10-2022 Progesterone 0.2 ng/mL Normal . [facility] Comment on above: Result Comment: Foll icular phase 0.1 - 0.9 Luteal phase 1.8 - 23.9 Ovulation phase 0.1 - 12.0 First trimester 11.0 - 44.3 Second trimester 25.4 - 83.3 Third trimester 58.7 - 214.0 Postmenopausal 0.0 - 0.1 Performed at: - [facility] [id number] Cotton Broker: Ramirez Ca PhD, Phone: [phone] PERFORMED BY: [place] [id number] PATHOLOGIST D[employer]EL AUTOMOTIVE TECHNICIAN WENDY CLARK M.D. Performed By: #### U A #### [address] Protein [Mass/volume] in Ser um or PlasmaOrdered By: Kenyetta Dove on 08-10-2022 Protein [Mass/Vol] 6.3 g/dL 6.4-8.[address] [facility] RBC Auto (Bld) [#/Vol]Ordere d By: Kenyetta Dove on 08-10-2022 RBC (Bld) [#/Vol] 4.20 10*6/uL 3.60-5.[address] [facility] Serum or plasma albumin/glob ulin mass ratioOrdered By: Kenyetta Doev on 08-10-2022 Albumin/Globulin [Mass ratio] 1.7 {ratio} [facility] Serum or plasma anion gap de terminationOrdered By: Kenyetta Dove on 08-10-2022 Anion gap [Moles/Vol] 10.1 mmol/L 6.0-15.0 [facility] Serum or plasma high density lipoprotein (HDL) cholesterol measurementOrdered By: Kenyetta Dove on 08-10-2022 Cholesterol in HDL [Mass/Vol] 53 mg/dL 35-85 [facility] Comment on above: HDL CHOL ATP-III CLA SSIFICATION Cardiovascular RiskHDL > or equal to 60 mg/dL LOWHDL < 40 mg/dL HIGH Serum or plasma lutropin lisa surement (units/volume)Ordered By: Kenyetta Dove on 08-10-2022 Lutropin Qn 14.0 m[IU]/mL . [facility] Comment on above: Adult Female: Follic ular phase 2.4 - 12.6 Ovulation phase 14.0 - 95.6 Luteal phase 1.0 - 11.4 Postmenopausal 7.7 - 58.5 Serum or plasma progesterone measurement (mass/volume)Ordered By: Kenyetta Dove on 08-10-2022 Progesterone [Mass/Vol] 0.2 ng/mL . [facility] Comment on above: Follicular phase 0.1 - 0.9 Luteal phase 1.8 - 23.9 Ovulation phase 0.1 - 12.0 First trimester 11.0 - 44.3 Second trimester 25.4 - 83.3 Third trimester 58.7 - 214.0 Postmenopausal 0.0 - 0.1Performed at: CB - [facility] [address] [id number] Director: Ramirez Ca PhD, Phone: [phone] Serum or plasma total choles terol/high density lipoprotein (HDL) cholesterol mass ratOrdered By: Kenyetta Dove on 08-10-2022 Cholesterol.total/Cholestero l in HDL [Mass ratio] 2.7 {ratio} <5.0 [facility] Sodium [Moles/volume] in Ser um or PlasmaOrdered By: Kenyetta Dove on 08-10-2022 Sodium [Moles/Vol] 139 mmol/L 136-[address] [facility] Thyroid Stimulating Hormoneo n 08-10-2022 TSH Qn 0.31 m[IU]/L Low 0.45-5.33 [facility] Comment on above: Order Comment: PT IS FASTING Result Comment: PERF ORMED BY: [facility] [address] [place] [id number] PATHOLOGIST DIESEL AUTOMOTIVE TECHNICIAN WENDY CLARK M.D. Performed By: #### T SH3, CMP ####[facility] Wqo[address] [place] [address] [facility] Thyrotropin [Units/volume] i n Serum or PlasmaOrdered By: Kenyetta Dove on 08-10-2022 TSH Qn 0.31 m[IU]/L 0.45-5.33 [facility] Thyroxine (T4) free [Mass/vo lume] in Serum or PlasmaOrdered By: Kenyetta Dove on 08-10-2022 Free T4 [Mass/Vol] 0.80 ng/dL 0.61-1.[address] [facility] Total estrogen measurementOr dered By: Kenyetta Dove on 08-10-2022 Estrogen [Mass/Vol] 310 pg/mL . [facility] Comment on above: Prepubertal < 40 Fem giacomo Cycle: 1-10 Days 16 - 328 11-20 Days 34 - 501 21-30 Days 48 - 350 Post-Menopausal 40 - 244Performed at: [facility] [id number] Director: Roger Kenny MD, Phone: [phone] Triglyceride [Mass/volume] i n Serum or PlasmaOrdered By: Kenyetta Dove on 08-10-2022 Triglyceride [Mass/Vol] 139 mg/dL 0-149 [facility] Comment on above: TRIG ATP III CLASSIF ICATIONTRIG less than 150 mg/dL NormalTRIG 150-199 mg/dL Borderline highTRIG 200-500 mg/dL High TRIG greater than 500 mg/dL Very highStandard traceable to the Center for Disease Conrtrol and Prevention (CDC) test method. Triiodothyronine (T3) Freeon 08-10-2022 Triiodothyronine (T3) Free 3.85 pg/mL Normal 2.50-3.90 [facility] Comment on above: Result Comment: PERF ORMED BY: [place] [address] PATHOLOGIST DIESEL AUTOMOTIVE TECHNICIAN WENDY CLARK M.D. Performed By: #### U A #### [address] Triiodothyronine (T3) Free [ Mass/volume] in Serum or PlasmaOrdered By: Kenyetta Dove on 08-10-2022 Free T3 [Mass/Vol] 3.85 pg/mL 2.50-3.[address] [facility] Urea nitrogen [Mass/volume] in Serum or PlasmaOrdered By: Kenyetta Dove on 08-10-2022 Urea nitrogen [Mass/Vol] 8 mg/dL 7-25 [facility] Vitamin D 25 Hydroxy Totalon 08-10-2022 Vitamin D 25 Hydroxy Total 36.0 ng/mL Normal 30-100 [facility] Comment on above: Result Comment: QASIM MIN D STATUS 25([place])VITAMIN D RANGE (ng/mL) Deficient <20 Insufficient 20 to <30 Sufficient 30 to 100 Reference: Adonay Espinosa, Shantelle MONTANO, et al. Evaluation,treatment, and prevention of vitamin D deficiency; an Endocrine Society clinical practice guideline. JCEM. 2010; 96(7):191-. PERFORMED BY: [place] [address] PATHOLOGIST DIESEL AUTOMOTIVE TECHNICIAN WENDY CLARK M.D. Performed By: #### U A #### [address] Vitamin D+Metabolites [Mass/ volume] in Serum or PlasmaOrdered By: Kenyetta Dove on 08-10-2022 Vitamin D+Metabolites [Mass/Vol] 36.0 ng/mL 30- 100 [facility] Comment on above: VITAMIN D STATUS 25( [place])VITAMIN D RANGE (ng/mL) Deficient <20 Insufficient 20 to <30Sufficient 30 to 100Reference: Adonay Espinosa, Shantelle MONTANO, et al. Evaluation,treatment, and prevention of vitamin D deficiency; an Endocrine Society clinical practice guideline. JCEM. 2010; 96(7):1911-30. WBC Auto (Bld) [#/Vol]Ordere d By: Kenyetta Dove on 08-10-2022 WBC (Bld) [#/Vol] 8.3 10*3/uL 3.8-11.[address] [facility] Consultation Noteon 08-05-19 Consultation Note [id number]:127 Normal [facility] Consultation Noteon 07-30-19 Consultation Note [id number]:127 Normal [facility] Office Visit (Cardiology)on 07-28-2022 Follow-up visit Diagnoses/Problems Assessed PVC (premature ventricular contraction) (427.69) (I49.3) Palpitations (785.1) (R00.2) Morbid obesity with BMI of 40.0-44.9, adult (278.01,V85.41) (E66.01,Z68.41) Anxiety (300.00) (F41.9) Former smoker (V15.82) (Z87.891) quit 01/28/22 Hypothyroidism (244.9) (E03.9) Atrial tachycardia (427.89) (I47.1) Orders Morbid obesity with BMI of 40.0-44.9, adult Healthy Weight Tips; Status:Complete - Retrospective Authorization; Done: 28Jul2022 Some eating tips that can help you lose weight.; Status:Complete - Retrospective Authorization; Done: 28Jul2022 Palpitations, PVC (premature ventricular contraction) IO EKG Electrocardiogram- 12 Lead; Status:Complete; Done: 28Jul2022 SocHx: Former smoker Tobacco Use Screening; Status:Complete; Done: 28Jul2022 Patient Instructions Please bring all medicines, vitamins, and herbal supplements with you when you come to the office. Prescriptions will not be filled unless you are compliant with your follow up appointments or have a follow up appointment scheduled as per instruction of your physician. Refills should be requested at the time of your visit. 4 months with EKG Retrieve [facility] Chief Complaint LUPE PICKARD is being seen for a 2 month follow-up of. History of Present Illness Patient is here for for follow-up for recent evaluation for symptoms of palpitation and documentation PVCs, anxiety and obesity. Since last time I saw her she continues to have the same symptoms and a rare episode of nonexertional chest pain. She admits to high level of anxiety. Her recent event monitor showed PVCs few 2-3 beats sequential PVCs were seen interpreted as nonsustained ventricular tachycardia but no long episode. Plan o 1 brief run of f atrial tachycardia seen. Plan 1. Symptoms of palpitation probably due to PVCs with increasing frequency recently with previous report of 1 syncopal episode remotely. EKG showed normal sinus rhythm with normal QRS and QT duration. Her Holter monitor appears fairly benign patient has not started using her magnesium and beta-shorty 2. Anxiety disorder 3. Obesity 4. Previous documentation of rare PVCs and PACs on Holter monitor 5. MRI recently suggestive of possible partially empty sella turcica 6. No evidence of coronary artery disease or heart failure clinically 7. Hypothyroidism on treatment 8. Few very atypical nonexertional chest pain she admits to high level of anxiety Plan 1. I advised the patient to start magnesium oxide 400 mg p.o. twice daily and try metoprolol ER 25 mg daily 2. I did have an event monitor with her 3. I encouraged her to lose weight and exercise 4. I advised to notify me change in cardiac status or symptoms 5. I reviewed with her the results of her recent diagnostic testing 6. We will see her back in 4 months or earlier if the need arise Surgical History Problems History of Back surgery History of section History of Complete colonoscopy History Of Prior Surgery History of Hysterectomy History of Thyroidectomy Past Medical History Problems History of Benign intracranial hypertension (348.2) (G93.2) History of arthritis (V13.4) (Z87.39) History of depression (V11.8) (Z86.59) History of fibromyalgia (V13.59) (Z87.39) History of gastritis (V12.79) (Z87.19) History of Graves' disease (V12.29) (Z86.39) History of Myopia with astigmatism (367.1,367.20) (H52.10,H52.209) Current Meds Medication NameInstruction ALPRAZolam 0.5 MG Oral TabletTAKE 1 TABLET BY MOUTH EVERY DAY Baclofen 20 MG Oral TabletTAKE 1 TABLET BY MOUTH EVERYDAY AT BEDTIME Linzess 145 MCG Oral CapsuleTAKE 1 CAPSULE Daily Liothyronine Sodium 5 MCG Oral Tablettake 1 tablet by mouth twice a day Magnesium Oxide 400 MG Oral TabletTAKE 1 TABLET TWICE DAILY. Melatonin Maximum Strength TABSTAKE 1 TABLET Bedtime Metoprolol Succinate ER 25 MG Oral Tablet Extended Release 24 HourTAKE 1 TABLET DAILY. Multi Vitamin Daily Oral TabletTAKE 1 TABLET DAILY. Synthroid 125 MCG Oral TabletTAKE 1 TABLET BY MOUTH DAILY IN THE MORNING ON AN EMPTY STOMACH Temazepam 30 MG Oral CapsuleTAKE 1 CAPSULE BY MOUTH ONCE A DAY (AT BEDTIME) NEEDED FOR SLEEP 30 DAY SUPPLY traMADol HCl - 100 MG Oral TabletTAKE 1 TABLET BY MOUTH TWICE A DAY Vitamin D3 1.25 MG (55249 UT) Oral CapsuleTAKE 1 CAPSULE Daily Allergies Medication No Known Drug Allergies Recorded By: Suzie Turner; 10/21/2017 2:10:00 PM Social History Problems Daily caffeine consumption Former smoker (V15.82) (Z87.891) quit 01/28/22 Illicit drug use (305.90) (F19.90) gilson Social alcohol use (V49.89) (Z78.9) Review of Systems Constitutional: not feeling tired. Cardiovascular: chest pain and palpitations, but no intermittent leg claudication and as noted in HPI. Respiratory: no cough and no shortness of breath. Gastrointestinal: no change in bowel habits and no blood in stools. Integumentary: no skin rashes. Neurological: (more content not included)... Normal [employer] Tobacco Screening.on 023 Fall risk assessment c) Not medically indicated -[facility] [employer] 250 DO Work Phone: Tobacco use status CP b) No M P-[facility] 250 DO Work Phone: Tobacco Screening. Yes [facility] [employer] 250 DO Work Phone: Patient Educationon 07-20-19 23 Patient Education Urology Botulinum Toxin Bladder Injection A botulinum toxin bladder injection is a procedure to treat an overactive bladder. During the procedure, a drug called botulinum toxin is injected into the bladder through a long, thin needle. This drug relaxes the bladder muscles and reduces overactivity. You may need this procedure if your medicines are not working or you cannot take them. The procedure may be repeated as needed. The treatment usually lasts for 6 months. Your health care provider will monitor you to see how well you respond. Tell a health care provider about: ? Any allergies you have. ? All medicines you are taking, including vitamins, herbs, eye drops, creams, and osgb-eno-tenfpjd medicines. ? Any problems you or family members have had with anesthetic medicines. ? Any blood disorders you have. ? Any surgeries you have had. ? Any medical conditions you have. ? Any previous reactions to a botulinum toxin injection. ? Any symptoms of urinary tract infection. These include chills, fever, a burning feeling when passing urine, and needing to pass urine often. ? Whether you are or may be . What are the risks? Generally this is a safe procedure. However, problems may occur, including: ? Not being able to pass urine. If this happens, you may need to have your bladder emptied with a thin tube inserted into your urethra (urinary catheter). ? Bleeding. ? Urinary tract infection. ? Allergic reaction to the botulinum toxin. ? Pain or burning when passing urine. ? Damage to other structures or organs. What happens before the procedure? Staying hydrated Follow instructions from your health care provider about hydration, which may include: ? Up to 2 hours before the procedure ? you may continue to drink clear liquids, such as water, clear fruit juice, black coffee, and plain tea. Eating and drinking restrictions Follow instructions from your health care provider about eating and drinking, which may include: ? 8 hours before the procedure ? stop eating heavy meals or foods, such as meat, fried foods, or fatty foods. ? 6 hours before the procedure ? stop eating light meals or foods, such as toast or cereal. ? 6 hours before the procedure ? stop drinking milk or drinks that contain milk. ? 2 hours before the procedure ? stop drinking clear liquids. Medicines Ask your health care provider about: ? Changing or stopping your regular medicines. This is especially important if you are taking diabetes medicines or blood thinners. ? Taking medicines such as aspirin and ibuprofen. These medicines can thin your blood. Do not take these medicines unless your health care provider tells you to take them. ? Taking nzsf-oan-wrjrjtz medicines, vitamins, herbs, and supplements. General instructions ? Plan to have someone take you home from the hospital or clinic. ? If you will be going home right after the procedure, plan to have someone with you for 24 hours. ? Ask your health care provider what steps will be taken to help prevent infection. These may include: ? Removing hair at the procedure site. ? Washing skin with a germ-killing soap. ? Antibiotic medicine. What happens during the procedure? ? You will be asked to empty your bladder. ? An IV will be inserted into one of your veins. ? You will be given one or more of the following: ? A medicine to help you relax (sedative). ? A medicine to numb the area (local anesthetic). ? A medicine to make you fall asleep (general anesthetic). ? A long, thin scope called a cystoscope will be passed into your bladder through the part of the body that carries urine from your bladder (urethra). ? The cystoscope will be used to fill your bladder with water. ? A long needle will be passed through the cystoscope and into the bladder. ? The botulinum toxin will be injected into your bladder. It may be injected into multiple areas of your bladder. ? Your bladder will be emptied, and the cystoscope will be removed. The procedure may vary among health care providers and hospitals. What can I expect after procedure? After your procedure, it is common to have: ? Blood-tinged urine. ? Burning or soreness when you pass urine. Follow these instructions at home: Medicines ? Take pxii-cyt-jkyccaa and prescription medicines only as told by your health care provider. ? If you were prescribed an antibiotic medicine, take it as told by your health care provider. Do not stop taking the antibiotic even if you start to feel better. General instructions ? Do not drive for 24 hours if you were given a sedative during your procedure. ? Drink enough fluid to keep your urine pale yellow. ? Return to your normal activities as told by your health care provider. Ask your health care provider what activities are safe for you. ? Keep all follow-up visits as t (more content not included)... Normal Pak Ti [facility] Urology Office/Clinic Noteon 07-20-2022 Urology Office/Clinic Note Chief Complaint Pt is here for 6 month f/u HPI Staff Lupe is a 47 y.o. female here for 6 month follow up. Previous Dx: chronic bilateral low back pain, nocturia, OAB, urge incontinence, urinary retention. S/P BOTOX done on 12/14/21. Pt presented to [facility] on 06/21/22 for left flank pain. CT a/p wo con done on 06/21/22 showed no evidence of bowel obstruction or obstructive uropathy. BUN 8 & CRE 0.51 done on 06/21/22. Dysuria: denies Incomplete bladder emptying: denies Hematuria: denies Frequency: yes Urgency: denies Nocturia: 3-4x a night Stream: steady stream Leaking: denies Post void dripping: denies Wearing pads/ Depends: denies Urge incontinence: denies Stress incontinence: denies Incontinence without Sensory Awareness: denies Abdominal pain: denies Flank pain: denies Sexual complaints: _ History of Present Illness Tests reviewed: reviewed UA, CT scan, ER records. I have reviewed the previous health record information and history for this patient from Dr. Ozuna. I have reviewed and verified the staff HPI to be accurate for this encounter. There have been no associated fever, chills, flank pain, or blood in the urine. Denies any urinary infections since last encounter. Review of Systems PHQ Score Initial Depression Screen Score: 0 ROS - Provider Constitutional: denies weight loss, denies hot flashes. Eyes: denies eye problems. Gastrointestinal: denies nausea, denies vomiting. Cardiovascular: denies chest pain or angina. Integumentary: no dryness Musculoskeletal: denies musculoskeletal symptoms. ENMT: denies otolaryngeal symptoms. Respiratory: no shortness of breath. Heme/Lymph: denies easy bleeding tendency, denies easy bruising tendency. Psychiatric: no confusion, no anxiety. Genitourinary: See HPI. Physical Exam Vitals & Measurements HR: 72(Peripheral) BP: 136/84 HT: 67 in HT: 170 cm WT: 136 kg WT: 299.2 lb BMI: 47.06 General Appearance: alert , no acute distress, well nourished, well developed female. Genitourinary: bladder nonpalpable, no flank pain. Assessment/Plan 1. Overactive bladder (N32.81: Overactive bladder) S/p Botox done 12/14/21. UA today negative for blood and infection. Urgency has improved but not completely resolved. Has had 5 Botox injections. Will schedule Botox for 2-3 mos. The procedural risks, benefits, details, and treatment alternatives have been discussed with the patient. These include bleeding, infection, continued problems with overactive bladder, inability to empty the bladder which could require an indwelling catheter or need for in/out catheterization to empty the bladder, and need for repeat procedures over time (usually lasts up to six months), as well as fatigue and insomnia, among others. There is a minimal risk of Botox entering the blood stream and causing neurological problems, which is quite rare. Full informed consent has been obtained. Will order Local anesthesia. Prophylactic abx sent to [facility]. 2. Nocturia (R35.1: Nocturia) Ongoing, 3-4x/night. Pt states previously 1-2x/night. 3. Left flank pain (R10.9: Unspecified abdominal pain) Pt presented to [facility] on 06/21/22 for left flank pain. CT AP wo con done 06/21/22 showed no evidence of bowel obstruction or obstructive uropathy. 06/21/22: BUN 8. Crea 0.51. Reviewed CT scan report. It does not appear that her left flank pain was coming from any urologic source. No evidence of urolithiasis. Pt thinks it was likely related to her back. No longer having flank pain. Overall the patient feels that her symptoms are very slowly beginning to return. She does not think she needs repeat Botox within the next month or so but does want to get on the surgical schedule. We will set her up for about a 3-month repeat intravesical Botox administration. Follow-up With When Contact Information Donya OZUNA MD, URL [address] [place] [id number]- Additional Instructions: schedule botox to have done in 2-3 mos Patient Education Botulinum Toxin Bladder Injection IShayna, personally scribed for Dr. Ozuna on 07/20/2022 13:39:41. . Documentation recorded by the scribe, Shayna Galaviz, accurately reflects the services(s) I performed and decisions made by me. Authenticated by Dr. Ozuna on 07/20/2022 13:41:58. 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 Normal [facility] Comment on above: Result Comment: Elec tronically Signed By: Donya OZUNA MD\.br\Date and Time Signed: 07/20/22 13:42 EST\.br\Electronically Co-Signed By: Shayna Galaviz\.br\Date and Time Co-Signed: 07/20/22 13:40 EST CA cardiac event monitoron 0 07-16-2022 CA cardiac event monitor [facility] [address] [address] Cardiac Event Monitor Signed Patient: Lupe Pickard MR#: [id number] : 1975 Acct:[id number] Age/Sex: 47 / F ADM Date: 06/15/22 Loc: Room: Type: [facility] Attending Dr: Phillip Benjamin MD Copies to: Ric Valverde MD, [facility] Phillip Benjamin MD Ordering Provider: Phillip Benjamin MD Date of Service: 06/15/22 CA/CA cardiac event monitor: palpitations ORDERED BY: Phillip Benjamin MD A 47-year-old patient with palpitations. The patient was monitored between 06/15/2022 and 07/14/2022. The patient had nearly 300 events sent for review, all the tracings were reviewed. The patient had 2 sets of symptoms that she reported. The more common one was skipped heartbeats, and the less common one was chest pain. The skipped beats were associated almost always with isolated PVCs; however, there were a couple of occasions of ventricular tachycardia, one for 3 beats and the other one for 5 beats. The heart rate during ventricular tachycardia was about 217 beats per minute. The patient also had an event of narrow complex tachycardia for 10 beats consistent with atrial tachycardia at rate 130 beats per minute, causing a complaint of skipped heartbeats. CONCLUSION: A 30-day event monitor that is abnormal. There are a couple events of ventricular tachycardia, one for 3 beats and one for 5 beats at rate 217 beats per minute, causing symptoms of skipped heartbeats. Another episode of narrow complex tachycardia suggestive for atrial tachycardia at rate 130 beats per minute for 10 beats was noted. Otherwise, the patient has symptoms of skipped heartbeat that almost always were associated with isolated PVCs; however, there were times when the skipped heartbeat complaint was associated with normal sinus rhythm with no ectopy. The patient's symptoms of chest pain, which were infrequent, did not associate with any cardiac arrhythmias. Please correlate clinically. Transcribed By: NTS 07/16/222010 Dictated By: Ric Valverde MD, [facility] 07/16/22 1521 Signed By: 07/26/22 0921 [facility] No Panel Informationon 07-16 [place] [address] DO Work Phone: Pre-Certification Formon Pre-Certification Form [id number]:127 Normal [facility] ED Note-Physicianon 06-22-19 ED Note-Physician [id number]:127 Normal [facility] B-Type Natriuretic Peptideon 06-21-2022 Natriuretic peptide B (Bld) [Mass/Vol] 35.0 pg/mL Normal 5-100 [facility] Comment on above: Result Comment: PERF ORMED BY: [place] [address] PATHOLOGIST DIESEL AUTOMOTIVE TECHNICIAN WENDY CLARK M.D. Performed By: #### H S TROP, DDIMER, BNP ####[facility] [address] [place] [address] Basophils Auto (Bld) [#/Vol] Ordered By: Steve Coronel on 06-21-2022 Basophils (Bld) [#/Vol] 0.1 10*3/uL 0.0-0.2 [facility] Basophils/100 WBC Auto (Bld) Ordered By: Steve Coronel on 06-21-2022 Basophils/100 WBC (Bld) 0.6 % . F [facility] Bilirubin Test strip Ql (U)O rdered By: Steve Coronel on 06-21-2022 Bilirubin Ql (U) Negative Negative [facility] Body fluid albumin measureme nt (mass/volume)Ordered By: Steve Coronel on 06-21-2022 Albumin (Body fld) [Mass/Vol] 3.7 g/dL 3.2-5. [address] [facility] [address] abdomen pelvis wo conon 0 06-21-2022 CT abdomen pelvis wo con [facility] [place] [address] [place] [address] CT Scan Report Signed Patient: Lupe Pickard MR#: [id number] : 1975 Acct:[id number] Age/Sex: 47 / F ADM Date: 06/21/22 Loc: ER Room: Type: [facility] ER Attending Dr: Copies to: Steve Coronel DO Ordering Provider: Steve Coronel DO Date of Service: 06/21/22 CT/CT abdomen pelvis wo con: abd pain CT abdomen pelvis wo con 06/21/2022 10:31 AM SIGNS AND SYMPTOMS: Left-sided flank pain, constipation, bloating TECHNIQUE: Multidetector ct axial images of the abdomen and pelvis were obtained without IV contrast. Multiplanar reformats were performed and reviewed to further define anatomy and possible pathology. CT was performed with one or more of the following dose reduction techniques: Automated exposure control, adjustment of the mA and/or kV according to patient size, or use of iterative reconstruction technique. COMPARISON: 06/28/2012 FINDINGS: Lower Chest: Within normal limits. ABDOMEN: Liver: Within normal limits. Bile Ducts: Normal caliber. Gallbladder: No calcified gallstones. Normal caliber wall. Pancreas: Within normal limits. Spleen: Within normal limits. Adrenals: Within normal limits. Kidneys: Within normal limits. Pelvis: Reproductive Organs: No pelvic masses. Ureters: Within normal limits. Bladder: Within normal limits. Bowel: There are a few uncomplicated colonic diverticula. There is a normal appendix in the right lower quadrant. Mesenteric Lymph Nodes: No enlarged mesenteric lymph nodes. Peritoneum: No ascites or free air, no fluid collection. Vessels: within normal limits Retroperitoneum: Within normal limits. Abdominal Wall: Within normal limits. Bones: Degenerative changes are noted in the thoracic spine and sacroiliac joints. CT/CT abdomen pelvis wo con IMPRESSION: There is no evidence of bowel obstruction or obstructive uropathy. No free fluid or free air. Uncomplicated colonic diverticula are noted. There is a normal appendix in the right lower quadrant. Impression dictated by: Ernie Roper M.D.06/21/2022 11:30 AM Dictation Location: [place] [address] Transcribed By: [facility] 06/21/22 1130 Dictated By: Ernie Roper II, MD 06/21/22 1124 Signed By: 06/21/22 [address] [facility] [address] chest wo conon 06-21-2022 CT chest [place] [address] CT Scan Report Signed Patient: Lupe Pickard MR#: [id number] : 1975 Acct:[id number] Age/Sex: 47 / F ADM Date: 06/21/22 Loc: ER Room: Type: [facility] ER Attending Dr: Copies to: Steve Coronel DO Ordering Provider: Steve Coronel DO Date of Service: 06/21/22 CT/CT chest wo con: lower rib pain CT CHEST WITHOUT IV CONTRAST: CLINICAL HISTORY: Left-sided flank pain with constipation for 2 months. COMPARISON: Mammograms 12/09/2021 TECHNIQUE: Spiral images were obtained through the chest without IV contrast. This CT exam was performed using one or more following dose reduction techniques: Automated exposure control, adjustment of the mA and/or kV according to patient size, or use of iterative reconstruction technique. FINDINGS: Mediastinum:Thoracic aorta appears normal in caliber. Pulmonary trunk appears nondilated. No pleural effusion. No lymphadenopathy. The esophagus is grossly unremarkable. Lungs:No consolidation, pneumothorax or pleural effusion. Abd:No acute findings. Soft tissues/Bones: Visualized soft tissues demonstrate no acute findings. A rounded mass is identified involving the right breast measuring 1.5 cm in greatest axial dimension seen on series 3 image 19. This is confirmed on mammography performed in 2021. There appears to be an adjacent biopsy clip. Osseous structures demonstrate degenerative change. CT/CT chest wo con IMPRESSION: No acute findings. Impression dictated by: oBb Neff Jr., D.OJaycee06/21/2022 12:56 PM Dictation Location: [place] [address] Transcribed By: [facility] 06/21/22 1256 Dictated By: Bob Neff Jr, DO 06/21/22 1249 Signed By: 06/21/22 1256 Normal [facility] Color Auto (U)Ordered By: Eduardo Coronel on 06-21-2022 Color (U) Yellow Yellow [facility] Complete Blood Count Auto Di ffon 06-21-2022 Basophils (Bld) [#/Vol] 0.1 10*3/uL Normal 0.0-0.2 [facility] Comment on above: Result Comment: PERF ORMED BY: [place] [address] PATHOLOGIST DIESEL AUTOMOTIVE TECHNICIAN WENDY CLARK M.D. Performed By: #### U A #### [address] Basophils/100 WBC (Bld) 0.6 % Normal . [facility] Comment on above: Performed By: #### U A #### [address] Eosinophils (Bld) [#/Vol] 0.1 10*3/uL Normal 0.0-0.45 [facility] Comment on above: Performed By: #### U A #### [address] Eosinophils/100 WBC (Bld) 1.2 % Normal . [facility] Comment on above: Performed By: #### U A #### [address] Erythrocyte distribution wid th (RBC) [Ratio] 15.0 % Normal 11.9-15.3 [facility] Comment on above: Performed By: #### U A #### [address] Hematocrit (Bld) [Volume fraction] 40.1 % Normal 34.0-46.4 [facility] Comment on above: Performed By: #### U A #### [address] Hemoglobin (Bld) [Mass/Vol] 13.2 g/dL Normal 11.8-15. 4 [facility] Comment on above: Performed By: #### U A #### [address] Lymphocytes (Bld) [#/Vol] 2.8 10*3/uL Normal 1.00-4.8 [facility] Comment on above: Performed By: #### U A #### [address] Lymphocytes/100 WBC (Bld) 29.5 % Normal . [facility] Comment on above: Performed By: #### U A #### [facility] [address] MCH (RBC) [Entitic mass] 28.7 pg Normal 24.7-34.3 [facility] Comment on above: Performed By: #### U A #### [facility] [address] MCV (RBC) [Entitic vol] 86.9 fL Normal 80-100 [facility] Comment on above: Performed By: #### U A #### [address] Mean Corpuscular HGB Conc 33.0 g/dL Normal 32.0-35.0 [facility] Comment on above: Performed By: #### U A #### [address] Monocytes (Bld) [#/Vol] 0.4 10*3/uL Normal 0.0-0.8 [facility] Comment on above: Performed By: #### U A #### [place] [address] [place] Monocytes/100 WBC (Bld) 18.39 % Normal 0.00-20.00 [facility] Comment on above: Performed By: #### U A #### [place] [address] [place] Monocytes/100 WBC (Bld) 3.8 % Normal . [facility] Comment on above: Performed By: #### U A #### [place] [address] [place] Neutrophils (Bld) [#/Vol] 6.2 10*3/uL Normal 1.8-7.7 [facility] Comment on above: Performed By: #### U A #### [address] Neutrophils/100 WBC (Bld) 64.9 % Normal . [facility] Comment on above: Performed By: #### U A #### [facility] [address] NRBC% 0.1 /100{WBC} Normal 0-0.5 [facility] Comment on above: Performed By: #### U A #### [facility] [address] Platelet mean volume (Bld) [Entitic vol] 8.0 fL Normal 6.3-10.7 [facility] Comment on above: Performed By: #### U A #### [facility] [address] Platelets (Bld) [#/Vol] 356 10*3/uL Normal 150-450 [facility] Comment on above: Performed By: #### U A #### [address] RBC (Bld) [#/Vol] 4.61 10*6/uL Normal 3.60-5.[address] [facility] Comment on above: Performed By: #### U A #### [address] WBC (Bld) [#/Vol] 9.5 10*3/uL Normal 3.8-11.[address] [facility] Comment on above: Performed By: #### U A #### [address] Comprehensive Metabolic Pane eriberto 06-21-2022 Albumin [Mass/Vol] 3.7 g/dL Normal 3.2-5.[address] [facility] Comment on above: Performed By: #### U A #### [facility] [address] [place] [address] Albumin/Globulin [Mass ratio] 1.2 {ratio} Normal [facility] Comment on above: Performed By: #### U A #### [address] ALP [Catalytic activity/Vol] 52 U/L Normal 32-92 [facility] Comment on above: Performed By: #### U A #### [facility] [address] [place] [address] ALT [Catalytic activity/Vol] 17 U/L Normal 10-60 [facility] Comment on above: Performed By: #### U A #### [address] Anion gap [Moles/Vol] 12.7 mmol/L Normal 6.0-15.0 [facility] Comment on above: Performed By: #### U A #### [address] AST [Catalytic activity/Vol] 19 U/L Normal 10-42 [facility] Comment on above: Performed By: #### U A #### [address] Bilirubin [Mass/Vol] 0.6 mg/dL Normal 0.3-1.2 [facility] Comment on above: Performed By: #### U A #### [address] Calcium [Mass/Vol] 9.1 mg/dL Normal 8.2-10.[address] [facility] Comment on above: Performed By: #### U A #### [facility] [address] [place] [address] Chloride [Moles/Vol] 100 mmol/L Normal 95-114 [facility] Comment on above: Performed By: #### U A #### [facility] [address] [place] [address] CO2 [Moles/Vol] 26.2 mmol/L Normal 22.0-30.0 [facility] Comment on above: Performed By: #### U A #### [facility] [address] [place] [address] Creatinine [Mass/Vol] 0.51 mg/dL Normal 0.44-1.03 [facility] Comment on above: Performed By: #### U A #### [facility] [address] [place] [address] Estimated GFR ( Lizbet > 60 Normal [facility] Comment on above: Result Comment: GFR estimated reference range: According to KDOQI guidelines, <60 ml/min/1.73m2 is sufficient to diagnose a patient with chronic kidney disease. Performed By: #### U A #### [address] Estimated GFR (Non- Am > 60 Normal [facility] Comment on above: Performed By: #### U A #### [address] Globulin (S) [Mass/Vol] 3.1 g/dL Normal F [facility] Comment on above: Performed By: #### U A #### [address] Glucose [Mass/Vol] 97 mg/dL Normal 70-[address] [facility] Comment on above: Result Comment: [place] om Glucose Reference Range is dependent on time and content of last meal. Glucose of more than 200 mg/dL in a nonstressed, ambulatory subject supports the diagnosis of Diabetes Mellitus. ADA recommended reference range Performed By: #### U A #### [address] Potassium [Moles/Vol] 3.9 mmol/L Normal 3.5-5.1 [facility] Comment on above: Performed By: #### U A #### [address] Protein [Mass/Vol] 6.8 g/dL Normal 6.1-7.[address] [facility] Comment on above: Performed By: #### U A #### [address] Sodium [Moles/Vol] 135 mmol/L Low 136-[address] [facility] Comment on above: Performed By: #### U A #### [address] Urea nitrogen [Mass/Vol] 8 mg/dL Low 9-23 [facility] Comment on above: Performed By: #### U A #### [address] Creatinine and Glomerular fi ltration rate.predicted panel (S/P/Bld)Ordered By: Steve Coronel on 06-21-2022 Creatinine [Mass/Vol] 0.51 mg/dL 0.44-1.03 [facility] D-Dimer High Sensitivityon 0 06-21-2022 D-Dimer High Sensitivity < 200 Normal 0-243 [facility] Comment on above: Result Comment: The reference range for D-dimer is <243 ng/mL D-dimer units. D-dimer results must be used in conjunction with a clinical pretest probability (PTP) assessment model for deep vein thrombosis (DVT) and pulmonary embolism (PE). Results <230 ng/mL d-dimer units can be used as a negative predictor in patients with low or moderate probability for DVT/PE. Results above the exclusion threshold of 230 ng/ml D-dimer units for DVT/PE may indicate the need for further diagnostic testing. D-Dimer can be increased in hospitalized patients due to co-morbid conditions. PERFORMED BY: [place] [address] PATHOLOGIST DIESEL AUTOMOTIVE TECHNICIAN WENDY CLARK M.D. Performed By: #### H S TROP, DDIMER, BNP ####[address] ECG 12 lead ECGon 06-21-2022 ECG 12 lead ECG [facility] [place] [address] [place] [address] Electrocardiograph Report Signed Patient: Lupe Pickard MR#: [id number] : 1975 Acct:[id number] Age/Sex: 47 / F ADM Date: 06/21/22 Loc: ER Room: Type: [facility] ER Attending Dr: Ordering Provider: Steve Coronel DO Date of Service: 06/21/22 ECG/ECG 12 lead ECG: Abdominal Pain Copies to: Test Reason : Blood Pressure : / mmHG Vent. Rate : 077 BPM Atrial Rate : 077 BPM P-R Int : 118 ms QRS Dur : 074 ms QT Int : 382 ms P-R-T Axes : 014 -11 023 degrees QTc Int : 432 ms Normal sinus rhythm Normal ECG When compared with ECG of 19-NOV-2019 17:57, No significant change was found Confirmed by Steve Coronel DO ([id number]) on 06/21/2022 7:29:21 PM Referred By: Electronically Signed By:Steve Coronel DO Transcribed By: MUS Signed By Steve Coronel DO 3 192 Normal [facility] Eosinophils Auto (Bld) [#/Vo l]Ordered By: Steve Coronel on 06-21-2022 Eosinophils (Bld) [#/Vol] 0.1 10*3/uL 0.0-0.45 [facility] Eosinophils/100 WBC Auto (Bl d)Ordered By: Steve Coronel on 06-21-2022 Eosinophils/100 WBC (Bld) 1.2 % . [facility] Erythrocyte distribution wid th Auto (RBC) [Ratio]Ordered By: Steve Coronel on 06-21-2022 Erythrocyte distribution wid th (RBC) [Ratio] 15.0 % 11.9-15.3 [facility] Estimated glomerular filtrat ion rate (GFR) non- AmericanOrdered By: Steve Coronel on 06-21-2022 GFR/1.73 sq M.predicted yo g non-blacks MDRD (S/P/Bld) [Vol rate/Area] > 60 mL/Min [facility] Formson 06-21-2022 Forms [id number]#1.00CD :127 Normal [facility] Globulin Calc (S) [Mass/Vol] Ordered By: Steve Coronel on 06-21-2022 Globulin (S) [Mass/Vol] 3.1 g/dL F [facility] Hematocrit Auto (Bld) [Volum e fraction]Ordered By: Steve Coronel on 06-21-2022 Hematocrit (Bld) [Volume fraction] 40.1 % 3 4.0-46.4 [facility] Hemoglobin [Mass/volume] in BloodOrdered By: Steve Coronel on 06-21-2022 Hemoglobin (Bld) [Mass/Vol] 13.2 g/dL 11.8-15. 4 [facility] Ketones Auto test strip (U) [Mass/Vol]Ordered By: Steve Coronel on 06-21-2022 Ketones (U) [Mass/Vol] Negative Negative Fi [facility] - Chemistry and C hemistry - challengeOrdered By: Steve Coronel on 06-21-2022 Lipase [Catalytic activity/Vol] 28.0 U/L 22-5 1 [facility] Natriuretic peptide B (Bld) [Mass/Vol] 35.0 pg/mL 5-100 [facility] Leukocytes [#/volume] correc emily for nucleated erythrocytes in Blood by Automated counOrdered By: Steve Coronel on 06-21-2022 WBC corrected for nucl RBC A uto (Bld) [#/Vol] 9.5 10*3/uL 3.8-11.6 [facility] Lipaseon 06-21-2022 Lipase [Catalytic activity/Vol] 28.0 U/L Normal 22-5 1 [facility] Comment on above: Result Comment: PERF ORMED BY: [facility] [address] [place] [address] PATHOLOGIST D[employer]EL AUTOMOTIVE TECHNICIAN WENDY CLARK M.D. Performed By: #### L IPASE, CBC, CMP ####[facility] [id number] Lymphocytes Auto (Bld) [#/Vo l]Ordered By: Steve Coronel on 06-21-2022 Lymphocytes (Bld) [#/Vol] 2.8 10*3/uL 1.00-4.8 [facility] Lymphocytes/100 WBC Auto (Bl d)Ordered By: Steve Coronel on 06-21-2022 Lymphocytes/100 WBC (Bld) 29.5 % . [facility] MCH Auto (RBC) [Entitic mass ]Ordered By: Steve Coronel on 06-21-2022 MCH (RBC) [Entitic mass] 28.7 pg 24.7-34.3 [facility] MCHC Auto (RBC) [Mass/Vol]Or dered By: Steve Coronel on 06-21-2022 MCHC (RBC) [Mass/Vol] 33.0 g/dL 32.0-35.0 [facility] MCV Auto (RBC) [Entitic vol] Ordered By: Steve Coronel on 06-21-2022 MCV (RBC) [Entitic vol] 86.9 fL 80-100 F [facility] Monocyte distribution width [Entitic volume] in Blood by AutomatedOrdered By: Steve Coronel on 06-21-2022 Monocyte distribution width Auto (Bld) [Entitic vol] 18.39 % 0.00-20.00 [facility] Monocytes Auto (Bld) [#/Vol] Ordered By: Steve Coronel on 06-21-2022 Monocytes (Bld) [#/Vol] 0.4 10*3/uL 0.0-0.8 [facility] Monocytes/100 WBC Auto (Bld) Ordered By: Steve Coronel on 06-21-2022 Monocytes/100 WBC (Bld) 3.8 % . [facility] Neutrophils Auto (Bld) [#/Vo l]Ordered By: Steve Coronel on 06-21-2022 Neutrophils (Bld) [#/Vol] 6.2 10*3/uL 1.8-7.7 [facility] Neutrophils/100 WBC Auto (Bl d)Ordered By: Steve Coronel on 06-21-2022 Neutrophils/100 WBC (Bld) 64.9 % . [facility] Nitrite Test strip Ql (U)Ord ered By: Steve Coronel on 06-21-2022 Nitrite Ql (U) Negative Negative [facility] No Panel InformationOrdered By: Steve Coronel on 06-21-2022 D-Dimer Quantitative (PE/DVT) < 200 ng/mL 0-243 [facility] Comment on above: The reference range for D-dimer is <243 ng/mL D-dimer units.D- dimer results must be used in conjunction with a clinicalpretest probability (PTP) assessment model for deep veinthrombosis (DVT) and pulmonary embolism (PE). Results <230ng/mL d-dimer units can be used as a negative predictor inpatients with low or moderate probability for DVT/PE.Results above the exclusion threshold of 230 ng/ml D- dimerunits for DVT/PE may indicate the need for furtherdiagnostic testing.D-Dimer can be increased in hospitalized patients due toco-morbid conditions. Estimated GFR () > 60 mL/Min [facility] Comment on above: GFR estimated refere nce range: According to KDOQI guidelines, <60 ml/min/1.73m2 is sufficient to diagnose a patient with chronic kidney disease. Pharmacy Creatinine Clearance (Chem N/A [facility] Nucleated erythrocytes [Pres ence] in Blood by Automated countOrdered By: Steve Coronel on 06-21-2022 Nucleated RBC Auto Ql (Bld) 0.1 /100{WBC} 0-0.5 [facility] Platelet mean volume Auto (B ld) [Entitic vol]Ordered By: Steve Coronel on 06-21-2022 Platelet mean volume (Bld) [Entitic vol] 8.0 fL 6.3-10.7 [facility] Platelets Auto (Bld) [#/Vol] Ordered By: Steve Coronel on 06-21-2022 Platelets (Bld) [#/Vol] 356 10*3/uL 150-450 [facility] Protein Auto test strip (U) [Mass/Vol]Ordered By: Steve Coronel on 06-21-2022 Protein (U) [Mass/Vol] Negative Negative [facility] Protein [Mass/volume] in Ser um or PlasmaOrdered By: Steve Coronel on 06-21-2022 Protein [Mass/Vol] 6.8 g/dL 6.1-7.[address] [facility] RBC Auto (Bld) [#/Vol]Ordere d By: Steve Coronel on 06-21-2022 RBC (Bld) [#/Vol] 4.61 10*6/uL 3.60-5.[address] [facility] Serum or plasma alanine ott otransferase measurement without P-5'-P (enzymatic activiOrdered By: Steve Coronel on 06-21-2022 ALT No additional P-5'-P [Ca talytic activity/Vol] 17 U/L 10-60 [facility] Serum or plasma albumin/glob ulin mass ratioOrdered By: Steve Coronel on 06-21-2022 Albumin/Globulin [Mass ratio] 1.2 {ratio} [facility] Serum or plasma alkaline chirag sphatase measurement (enzymatic activity/volume)Ordered By: Steve Coronel on 06-21-2022 ALP [Catalytic activity/Vol] 52 U/L 32-92 [facility] Serum or plasma anion gap de terminationOrdered By: Steve Coronel on 06-21-2022 Anion gap [Moles/Vol] 12.7 mmol/L 6.0-15.0 [facility] Serum or plasma aspartate am inotransferase measurement (enzymatic activity/volume)Ordered By: Steve Coronel on 06-21-2022 AST [Catalytic activity/Vol] 19 U/L 10-42 [facility] Serum or plasma calcium merari urement (mass/volume)Ordered By: Steve Coronel on 06-21-2022 Calcium [Mass/Vol] 9.1 mg/dL 8.2-10.[address] [facility] Serum or plasma chloride lisa surement (moles/volume)Ordered By: Steve Coronel on 06-21-2022 Chloride [Moles/Vol] 100 mmol/L 95-114 [facility] Serum or plasma glucose merari urement (mass/volume)Ordered By: Steve Coronel on 06-21-2022 Glucose [Mass/Vol] 97 mg/dL 70-[address] [facility] Comment on above: ADA recommended refe rence rangeRandom Glucose Reference Range is dependent on time and content of last meal. Glucose of more than 200 mg/dL in a nonstressed, ambulatory subject supports the diagnosis of Diabetes Mellitus. Serum or plasma potassium me asurement (moles/volume)Ordered By: Steve Coronel on 06-21-2022 Potassium [Moles/Vol] 3.9 mmol/L 3.5-5.1 [facility] Serum or plasma sodium measu rement (moles/volume)Ordered By: Steve Coronel on 06-21-2022 Sodium [Moles/Vol] 135 mmol/L 136-[address] [facility] Serum or plasma total biliru bin measurement (mass/volume)Ordered By: Steve Coronel on 06-21-2022 Bilirubin [Mass/Vol] 0.6 mg/dL 0.3-1.2 [facility] Serum or plasma total carbon dioxide measurement (moles/volume)Ordered By: Steve Coronel on 06-21-2022 CO2 [Moles/Vol] 26.2 mmol/L 22.0-30.0 [facility] Serum or plasma urea nitroge n measurement (mass/volume)Ordered By: Steve Coronel on 06-21-2022 Urea nitrogen [Mass/Vol] 8 mg/dL 02-19 [facility] Specific gravity Auto test s trip (U) [Rel density]Ordered By: Steve Coronel on 06-21-2022 Specific gravity (U) [Rel density] 1.005 1.001-1.030 [facility] Troponin I High Sensitivityo n 06-21-2022 Troponin I High Sensitivity < 3 Normal 0 [facility] Comment on above: Result Comment: PERF ORMED BY: [facility] [address] [facility] [place] [address] PATHOLOGIST DIESEL AUTOMOTIVE TECHNICIAN WENDY CLARK M.D. Performed By: #### H S TROP, DDIMER, BNP ####[facility] [id number] [place] [id number] [facility] Troponin I.cardiac [Mass/vol ume] in Serum or Plasma by High sensitivity methodOrdered By: Steve Coronel on 06-21-2022 Troponin I.cardiac High sens itivity method [Mass/Vol] < 3 pg/mL [facility] Urinalysison 06-21-2022 Appearance (U) Clear Normal Clear [facility] Comment on above: Order Comment: Name Collection Type:: Clean-Voided Midstream Performed By: #### U A ####[place] [id number] [place] [address] [facility] Bilirubin,Urine Negative Normal Negative [facility] Comment on above: Order Comment: Name Collection Type:: Clean-Voided Midstream Performed By: #### U A ####[place] [id number] [place] [address] [facility] Color (U) Yellow Normal Yellow [facility] Comment on above: Order Comment: Name Collection Type:: Clean-Voided Midstream Performed By: #### U A ####[address] [address] [facility] Glucose Ql (U) Normal Normal Normal [facility] Comment on above: Order Comment: Name Collection Type:: Clean-Voided Midstream Performed By: #### U A ####[address] [address] [facility] Ketones Ql (U) Negative Normal Negative [facility] Comment on above: Order Comment: Name Collection Type:: Clean-Voided Midstream Performed By: #### U A ####[address] [address] [facility] Leukocyte esterase Test stri p Ql (U) Negative Normal Negative [facility] Comment on above: Order Comment: Name Collection Type:: Clean-Voided Midstream Performed By: #### U A ####[address] [address] [facility] Nitrite,Urine Negative Normal Negative [facility] Comment on above: Order Comment: Name Collection Type:: Clean-Voided Midstream Performed By: #### U A ####[address] [address] [facility] Occult Blood,Urine Negative Normal Negative [facility] Comment on above: Order Comment: Name Collection Type:: Clean-Voided Midstream Result Comment: PERF ORMED BY: [facility] [address] [place] [address] PATHOLOGIST D[employer]EL AUTOMOTIVE TECHNICIAN WENDY CLARK M.D. Performed By: #### U A ####[address] [address] [facility] pH (U) 7.5 [pH] Normal 5.0-9.[address] [facility] Comment on above: Order Comment: Name Collection Type:: Clean-Voided Midstream Performed By: #### U A ####[address] [address] [facility] Protein,Urine Negative Normal Negative [facility] Comment on above: Order Comment: Name Collection Type:: Clean-Voided Midstream Performed By: #### U A ####[place] [address] [place] [address] [facility] Specificy [place],Urine 1.005 Normal 1.001-1.030 [facility] Comment on above: Order Comment: Name Collection Type:: Clean-Voided Midstream Performed By: #### U A ####[facility] [id number] [place] [address] [facility] Urobilinogen,Urine Normal Normal Normal [facility] Comment on above: Order Comment: Name Collection Type:: Clean-Voided Midstream Performed By: #### U A ####[facility] [address] [place] [address] [facility] Urine clarity by refractomet ry automatedOrdered By: Steve Coronel on 06-21-2022 Clarity Refractometry automated (U) Clear Clear [facility] Urine glucose measurement by automated test strip (mass/volume)Ordered By: Steve Coronel on 06-21-2022 Glucose Auto test strip (U) [Mass/Vol] Normal mg/dL Normal [facility] Urine hemoglobin detection b y automated test stripOrdered By: Steve Coronel on 06-21-2022 Hemoglobin Auto test strip Ql (U) Negative Ne gative [facility] Urine leukocyte esterase det ection by automated test stripOrdered By: Steve Coronel on 06-21-2022 Leukocyte esterase Auto test strip Ql (U) Negative Negative [facility] Urobilinogen Auto test strip (U) [Mass/Vol]Ordered By: Steve Coronel on 06-21-2022 Urobilinogen (U) [Mass/Vol] Normal mg/dL Normal [facility] WBC Auto (Bld) [#/Vol]Ordere d By: Steve Coronel on 06-21-2022 WBC (Bld) [#/Vol] 9.5 10*3/uL 3.8-11.[address] [facility] pH Auto test strip (U)Ordere d By: Steve Coronel on 06-21-2022 pH (U) 7.5 [pH] 5.0-9.[address] [facility] Outside Records Officeon Outside Records Office [id number]:127 Normal [facility] Radiology Outside Office [employer] yon 06-08-2022 Radiology Outside Office Copy [id number]:127 Normal [facility] Referrals Officeon 3 Referrals Office [id number]:127 Normal [facility] Consultation Noteon 06-05-19 23 Consultation Note [id number]#[id number]:127 Normal [facility] Office Visit (Cardiology)on 06-04-2022 Follow-up visit Diagnoses/Problems Assessed Palpitations (785.1) (R00.2) PVC (premature ventricular contraction) (427.69) (I49.3) Hypothyroidism (244.9) (E03.9) Morbid obesity with BMI of 40.0-44.9, adult (278.01,V85.41) (E66.01,Z68.41) Former smoker (V15.82) (Z87.891) Anxiety (300.00) (F41.9) Orders Palpitations Start: Magnesium Oxide 400 MG Oral Tablet; TAKE 1 TABLET TWICE DAILY Start: Metoprolol Succinate ER 25 MG Oral Tablet Extended Release 24 Hour (Toprol XL); TAKE 1 TABLET DAILY Palpitations, PVC (premature ventricular contraction) IO Event Monitor 30 days; Status:Active - Perform Order,Retrospective Authorization; Requested for:04Jun2022; SocHx: Former smoker Tobacco Use Screening; Status:Complete; Done: 04Jun2022 Tobacco Use Screening; Status:Complete; Done: 04Jun2022 Patient Instructions Please bring all medicines, vitamins, and herbal supplements with you when you come to the office. Prescriptions will not be filled unless you are compliant with your follow up appointments or have a follow up appointment scheduled as per instruction of your physician. Refills should be requested at the time of your visit. JIL Mag-ox 400 mg BID Toprl xl 25 mg daily Follow-up after testing completed The provider reviewed the following test(s) and result(s) with the patient: ECG Chief Complaint LUPE PICKARD is being seen for a consultation for palps, symptomatic pvc's. History of Present Illness Patient is here for cardiovascular evaluation for symptoms of palpitation. She is a pleasant 47-year-old with no prior cardiac history except intermittent palpitation in the past with previous Holter monitor showing few PVCs and PACs but no significant tacky or bradycardia arrhythmia. Patient report recently she had increased frequency of palpitation with intermittent episodes of pauses. She felt lightheadedness and dizziness on couple of occasion. She had mid to high level of anxiety and anxiety disorder. The patient denies chest pain, shortness of breath. She reports remote syncopal episode 2 years ago. She described functional class I. She denies any other neurologic symptoms. Plan 1. Symptoms of palpitation probably due to PVCs with increasing frequency recently with previous report of 1 syncopal episode remotely. EKG showed normal sinus rhythm with normal QRS and QT duration. 2. Anxiety disorder 3. Obesity 4. Previous documentation of rare PVCs and PACs on Holter monitor 5. MRI recently suggestive of possible partially empty sella turcica 6. No evidence of coronary artery disease or heart failure clinically 7. Hypothyroidism on treatment Plan 1. I advised the patient to start magnesium oxide 400 mg p.o. twice daily and try metoprolol ER 25 mg daily 2. I suggested 30-day event monitor 3. I encouraged her to lose weight and exercise 4. I advised to notify me change in cardiac status or symptoms 5. I reviewed with her the results of her recent diagnostic testing Surgical History Problems History of Back surgery History of section History of Complete colonoscopy History Of Prior Surgery History of Hysterectomy History of Thyroidectomy Past Medical History Problems History of Benign intracranial hypertension (348.2) (G93.2) History of arthritis (V13.4) (Z87.39) History of depression (V11.8) (Z86.59) History of fibromyalgia (V13.59) (Z87.39) History of gastritis (V12.79) (Z87.19) History of Graves' disease (V12.29) (Z86.39) History of Myopia with astigmatism (367.1,367.20) (H52.10,H52.209) Current Meds Medication NameInstruction ALPRAZolam 0.5 MG Oral TabletTAKE 1 TABLET BY MOUTH EVERY DAY Baclofen 20 MG Oral TabletTAKE 1 TABLET BY MOUTH EVERYDAY AT BEDTIME Meganothyronine Sodium 5 MCG Oral Tablettake 1 tablet by mouth twice a day Melatonin Maximum Strength TABSTAKE 1 TABLET Bedtime Synthroid 125 MCG Oral TabletTAKE 1 TABLET BY MOUTH DAILY IN THE MORNING ON AN EMPTY STOMACH Temazepam 30 MG Oral CapsuleTAKE 1 CAPSULE BY MOUTH ONCE A DAY (AT BEDTIME) NEEDED FOR SLEEP 30 DAY SUPPLY traMADol HCl - 100 MG Oral TabletTAKE 1 TABLET BY MOUTH TWICE A DAY Trulance 3 MG Oral TabletTake 1 tablet daily Patient did not bring medication list or bottles. Updated verbally with patient Allergies Medication No Known Drug Allergies Recorded By: Suzie Turner; 10/21/2017 2:10:00 PM Social History Problems Current smoker (305.1) (F17.200) Former smoker (V15.82) (Z87.891) Illicit drug use (305.90) (F19.90) Social alcohol use (V49.89) (Z78.9) Review of Systems Constitutional: not feeling tired. Eyes: no eyesight problems. ENT: no hearing loss and no nosebleeds. Cardiovascular: palpitations, but no intermittent leg claudication and as noted in HPI. Respiratory: no chronic cough and no shortness of breath. Gastrointestinal: no change in bowel habits and no blood in stools. Genitourinary: no urinary frequency. Skin: no skin rashes. Neurological: no seizures and no (more content not included)... Normal [facility] Physician Referralon 023 Physician Referral [id number]:127 Normal [facility] XR pre/post mri xrayon 05-04 XR pre/post mri xray [facility] [place] [address] [place] [address] MRI Report Signed Patient: Lupe Pickard MR#: [id number] : 1975 Acct:[id number] Age/Sex: 47 / F ADM Date: 05/04/22 Loc: [facility] Room: Type: [facility] Attending Dr: Bhavna Marr CREDIT FRONT OFFICE DEVELOPER-C Copies to: Bhavna Marr CNP Ordering Provider: Bhavna Marr CNP Date of Service: 05/04/22 MR/MR thoracic spine wo con: THORACIC SPONDYLOSIS ([id number]) XR/XR pre/post mri xray: PRE MRI T SPINE MR thoracic spine wo con, XR pre/post mri xray 05/04/2022 10:10 AM SIGNS AND SYMPTOMS: Mid back pain PROTOCOL: Multiplanar multisequence MR images of the thoracic spine were obtained without IV contrast. Frontal and lateral radiographs of the thoracic spine. COMPARISON: None. FINDINGS: Radiographs of the thoracic spine: The bones are in anatomic alignment. There is disc height loss greatest in the midthoracic spine. The vertebral body heights are preserved. There is no evidence of fracture or subluxation. MRI thoracic spine: Images are degraded secondary to the use of a low-field open imaging system. The bones of the thoracic spine are in anatomic alignment. There is preservation of vertebral body heights. There is moderate to severe disc height loss at T6-T7. There is mild disc height loss at T8-T9 and T9-T10.. The marrow signal is within normal limits. No epidural or paraspinous fluid collection is appreciated. The visualized paraspinous soft tissues are within normal limits. At T1-T2: There is a normal disc, central canal, and neural foramen. At T2-T3: There is a normal disc, central canal, and neural foramen. At T3-T4: There is a normal disc, central canal, and neural foramen. At T4-T5: There is a normal disc, central canal, and neural foramen. At T5-T6: There is a normal disc, central canal, and neural foramen. At T6-T7: There is a normal disc, central canal, and neural foramen. At T7-T8: There is a broad-based disc bulge with a central disc protrusion contributing to mild narrowing of spinal canal. No significant neural foraminal narrowing. At T8-T9: There is a normal disc, central canal, and neural foramen. At T9-T10: There is a broad-based disc bulge with mild narrowing of spinal canal. No significant neural foraminal narrowing. At T10-T11: There is a normal disc, central canal, and neural foramen. At T11-T12: There is a normal disc, central canal, and neural foramen. At T12-L1: There is a normal disc, central canal, and neural foramen. MR/MR thoracic spine wo con IMPRESSION: Images are degraded secondary to the use of a low-field open imaging system. No fracture or dislocation. Multilevel degenerative change is noted, greatest at T7-T8. No cord compression or cord signal abnormality. Impression dictated by: Ernie Roper M.D.05/04/2022 1:30 PM Dictation Location: [place] [address] Transcribed By: BOB 05/04/22 1330 Dictated By: Ernie Roper II, MD 05/04/22 1325 Signed By: 05/04/22 1330 [facility] COVID + FLU Quick Testingon 04-28-2022 SARS-CoV-2 (COVID-19) RNA NA A+probe Ql (Unsp spec) Positive [facility] [employer] Other COVID + FLU Quick Testing Negative [facility] [employer] Other Quick Strepon 04-28-2022 S. 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 The Pap test does not represent a final diagnostic test for cervical cancer. Furthermore, the Pap test was not designed to screen for other malignancies (endometrial, ovarian cancer, etc....). False negatives and false positives have occurred. If clinically indicated, further patient evaluation is recommended. [facility] Vital Signs Date Time Vital Sign Value Performing Clinician Facility 03-29-2023 10:130 Diastolic blood pressure 98 mm[Hg] PHYSICIAN NO [facility] 03-29-2023 10:13040 Heart rate 70 /min PHYSICIAN NO [facility] 03-29-2023 10:13-0400 Respiratory rate 20 /min PHYSICIAN NO [facility] 03-29-2023 10:13-0400 SaO2% (BldA) [Mass fraction] 98 % PHYSICIAN NO [facility] 03-29-2023 10:13-0400 Systolic blood pressure 167 mm[Hg] PHYSICIAN NO [facility] 03-29-2023 08:29-0400 Body height 170.18 cm PHYSICIAN NO [facility] 03-29-2023 08:29-0400 Body weight 120.2 kg PHYSICIAN NO [facility] 03-27-2023 13:45-0400 Body height 170.18 cm Oscar Reed Other [facility] [employer] Other 03-27-2023 13:45-0400 Body mass index (BMI) [Ratio] 42.03 kg/m2 Oscar Reed Other [employer] Other 03-27-2023 13:45-0400 Body temperature 98.1 [degF] Oscar Reed Other [employer] Other 03-27-2023 13:45-0400 Body weight 121.75 kg Oscar Reed Other [employer] Other 03-27-2023 13:45-0400 Diastolic blood pressure 92 mm[Hg] Oscar Reed Other [employer] Other 03-27-2023 13:45-0400 Respiratory rate 18 /min Oscar Reed Other [employer] Other 03-27-2023 13:45-0400 SaO2% (BldA) [Mass fraction] 97 % Oscar Reed Other [employer] Other 03-27-2023 13:45-0400 Systolic blood pressure 156 mm[Hg] Oscar Derek Other [facility] [employer] Other 02-17-2023 13:15-0400 Body height 170.18 cm Beny Alvarez Other [facility] [employer] Other 02-17-2023 13:15-0400 Body mass index (BMI) [Ratio] 42.03 kg/m2 Beny Womackormack Other [facility] [employer] Other 02-17-2023 13:15-0400 Body weight 121.75 kg Beny Gato Other [employer] Other 02-17-2023 13:15-0400 Diastolic blood pressure 79 mm[Hg] Beny Gato Other [facility] [employer] Other 02-17-2023 13:15-0400 Systolic blood pressure 139 mm[Hg] Beny Gato Other [facility] [employer] Other 01-24-2023 10:47-0400 Diastolic blood pressure 84 mm[Hg] DO Donya Billings Work Phone: [facility] 01-24-2023 10:47-0400 Heart rate 94 /min DO Donya Billings Work Phone: [facility] 01-24-2023 10:47-0400 Respiratory rate 20 /min DO Donya Billings Work Phone: [facility] 01-24-2023 10:47-0400 SaO2% (BldA) [Mass fraction] 98 % DO Donya Billings Work Phone: [facility] 01-24-2023 10:47-0400 Systolic blood pressure 181 mm[Hg] DO Donya Billings Work Phone: [facility] 01-24-2023 09:58-0400 Body height 170.18 cm DO Donya Billings Work Phone: [facility] 01-24-2023 09:58-0400 Body temperature 98 [degF] DO Donya Billings Work Phone: [facility] 01-24-2023 09:58-0400 Body weight 122.75 kg DO Donya Billings Work Phone: [facility] 12-30-2022 23:30-0400 Diastolic blood pressure 84 mm[Hg] DO Donya Billings Work Phone: [facility] 12-30-2022 23:30-0400 Heart rate 81 /min DO Donya Billings Work Phone: [facility] 12-30-2022 23:30-0400 Respiratory rate 20 /min DO Donya Billings Work Phone: [facility] 12-30-2022 23:30-0400 SaO2% (BldA) [Mass fraction] 98 % DO Donya Billings Work Phone: [facility] 12-30-2022 23:30-0400 Systolic blood pressure 176 mm[Hg] DO Donya Billings Work Phone: [facility] 12-30-2022 17:21-0400 Body height 170.18 cm DO Donya Billings Work Phone: [facility] 12-30-2022 17:21-0400 Body temperature 97.6 [degF] DO Donya Billings Work Phone: [facility] 12-30-2022 17:21-0400 Body weight 122.1 kg DO Donya Billings Work Phone: [facility] 12-20-2022 16:32-0400 Diastolic blood pressure 87 mm[Hg] DO Donya Billings Work Phone: [facility] 12-20-2022 16:32-0400 Heart rate 80 /min DO Donya Billings Work Phone: [facility] 12-20-2022 16:32-0400 Respiratory rate 18 /min DO Donya Billings Work Phone: [facility] 12-20-2022 16:32-0400 SaO2% (BldA) [Mass fraction] 98 % DO Donya Billings Work Phone: [facility] 12-20-2022 16:32-0400 Systolic blood pressure 137 mm[Hg] DO Donya Billings Work Phone: [facility] 12-20-2022 12:47-0400 Body height 170.18 cm DO Donya Billings Work Phone: [facility] 12-20-2022 12:47-0400 Body temperature 98.7 [degF] DO Donya Billings Work Phone: [facility] 12-20-2022 12:47-0400 Body weight 121.5 kg DO Donya Billings Work Phone: [facility] 12-08-2022 08:50-0400 Body height 170.18 cm Donya Billings Work Phone: [facility] [address] DO Work Phone: 12-08-2022 08:50-0400 Body mass index (BMI) [Ratio] 42.29 kg/m2 Donya Billings Work Phone: [facility] [address] DO Work Phone: 12-08-2022 08:50-0400 Body surface area Derived from formula 2.3 m2 Donya Billings Work Phone: [facility] [address] DO Work Phone: 12-08-2022 08:50-0400 Body weight 122.47 kg Donya Billings Work Phone: [facility] [address] DO Work Phone: 12-08-2022 08:50-0400 Diastolic blood pressure 80 mm[Hg] Donya Billings Work Phone: [facility] [address] DO Work Phone: 12-08-2022 08:50-0400 Heart rate 80 /min Donya Billings Work Phone: [facility] [address] DO Work Phone: 12-08-2022 08:50-0400 Systolic blood pressure 128 mm[Hg] Donya Billings Work Phone: [facility] [address] DO Work Phone: 11-06-2022 00:59-0400 Diastolic blood pressure 68 mm[Hg] DO Donya Billings Work Phone: [facility] 11-06-2022 00:59-0400 Heart rate 86 /min DO Donya Billings Work Phone: [facility] 11-06-2022 00:59-0400 Respiratory rate 19 /min DO Donya Billings Work Phone: [facility] 11-06-2022 00:59-0400 SaO2% (BldA) [Mass fraction] 99 % DO Donya Billings Work Phone: [facility] 11-06-2022 00:59-0400 Systolic blood pressure 139 mm[Hg] DO Donya Billings Work Phone: [facility] 11-05-2022 20:12-0400 Body height 170.18 cm DO Donya Billings Work Phone: [facility] 11-05-2022 20:12-0400 Body temperature 97.9 [degF] DO Donya Billings Work Phone: [facility] 11-05-2022 20:12-0400 Body weight 122.95 kg DO Donya Billings Work Phone: [facility] 10-13-2022 10:03-0400 Body height 170.18 cm Donya Billings Work Phone: [facility] [address] [place] Work Phone: 10-13-2022 10:03-0400 Body mass index (BMI) [Ratio] 41.98 kg/m2 Donya Billings Work Phone: [facility] [address] [place] Work Phone: 10-13-2022 10:03-0400 Body surface area Derived from formula 2.29 m2 Donya Billings Work Phone: [facility] [address] [place] Work Phone: 10-13-2022 10:03-0400 Body weight 121.56 kg Donya Billings Work Phone: [facility] [address] [place] Work Phone: 10-13-2022 10:03-0400 Diastolic blood pressure 68 mm[Hg] Donya Billings Work Phone: [facility] [address] [place] Work Phone: 10-13-2022 10:03-0400 Heart rate 68 /min Donya Billings Work Phone: [facility] [address] [place] Work Phone: 10-13-2022 10:03-0400 Systolic blood pressure 122 mm[Hg] Donya Billings Work Phone: [facility] [address] [place] Work Phone: 09-01-2022 14:30-0400 Body height 170.18 cm Oliver Mario Other [employer] Other 09-01-2022 14:30-0400 Body mass index (BMI) [Ratio] 41.97 kg/m2 Oliver Mario Other [employer] Other 09-01-2022 14:30-0400 Body weight 121.56 kg Oliver Mario Other [facility] [employer] Other 09-01-2022 14:30-0400 Diastolic blood pressure 96 mm[Hg] Oliver Guillerminacelsa Other [facility] [employer] Other 09-01-2022 14:30-0400 Systolic blood pressure 159 mm[Hg] Oliver Mario Other [facility] [employer] Other 07-28-2022 13:20-0500 Body height 170.18 cm Donya Billings [facility] [facility] [place] Work Phone: 07-28-2022 13:20-0500 Body mass index (BMI) [Ratio] 42.13 kg/m2 Donya Billings Work [facility]: [facility] [place] Work Phone: 07-28-2022 13:20-0500 Body surface area Derived from formula 2.29 m2 Donya Billings Work Phone: [facility] [place] Work Phone: 07-28-2022 13:20-0500 Body weight 122.02 kg Donya Billings Work Phone: [facility] [facility] [place] Work Phone: 07-28-2022 13:20-0500 Diastolic blood pressure 68 mm[Hg] Donya Billings Work Phone: [facility] [place] Work Phone: 07-28-2022 13:20-0500 Heart rate 78 /min Donya Billings Work Phone: [facility] [facility] [place] Work Phone: 07-28-2022 13:20-0500 Systolic blood pressure 142 mm[Hg] Donya Billings Work Phone: [facility] [address] [place] Work Phone: 06-21-2022 13:10-0500 Diastolic blood pressure 79 mm[Hg] DO Donya Billings Work Phone: [facility] 06-21-2022 13:10-0500 Heart rate 75 /min DO Donya Billings Work Phone: [facility] 06-21-2022 13:10-0500 Respiratory rate 18 /min DO Donya Billings Work Phone: [facility] 06-21-2022 13:10-0500 SaO2% (BldA) [Mass fraction] 98 % DO Donya Billings Work Phone: [facility] 06-21-2022 13:10-0500 Systolic blood pressure 164 mm[Hg] DO Donya Billings Work Phone: [facility] 06-21-2022 10:26-0500 Body temperature 98.7 [degF] DO Donya Billings Work Phone: [facility] 05-12-2022 16:00-0500 Body height 170.18 cm Oliver Mario Other [facility] [employer] Other 05-12-2022 16:00-0500 Body mass index (BMI) [Ratio] 41.81 kg/m2 Oliver Mario Other [facility] [employer] Other 05-12-2022 16:00-0500 Body weight 121.11 kg Oliver Mairo Other [facility] [employer] Other 05-12-2022 16:00-0500 Diastolic blood pressure 89 mm[Hg] Oliver Mario Other [facility] [employer] Other 05-12-2022 16:00-0500 Systolic blood pressure 139 mm[Hg] Oliver Mario Other [employer] Other 04-28-2022 16:00-0500 Body height 170.18 cm Oscar Reed Other [employer] Other 04-28-2022 16:00-0500 Body mass index (BMI) [Ratio] 39.93 kg/m2 Oscar Reed Other [employer] Other 04-28-2022 16:00-0500 Body temperature 97.9 [degF] Oscar Reed Other [employer] Other 04-28-2022 16:00-0500 Body weight 115.67 kg Oscar Reed Other [employer] Other 04-28-2022 16:00-0500 Diastolic blood pressure 88 mm[Hg] Oscar Reed Other [employer] Other 04-28-2022 16:00-0500 Respiratory rate 18 /min Oscar Reed Other [employer] Other 04-28-2022 16:00-0500 SaO2% (BldA) [Mass fraction] 97 % Oscar Reed Other [employer] Other 04-28-2022 16:00-0500 Systolic blood pressure 139 mm[Hg] Oscar Reed Other [employer] Other Encounters Encounter Date Encounter Type Care Provider Facility Start: 11-16-2023 ambulatory Donya Menon y:[facility] Start: 06-28-2023 ambulatory DO Diony Singh Fac ility:[facility] Start: 05-10-2023 End: 05-11-2023 ambulatory DO Diony Singh Facility:[facility] Start: 04-14-2023 End: 04-15-2023 ambulatory DO Diony J Anastasiamley Facility:[facility] Start: 04-11-2023 End: 04-12-2023 ambulatory XXXX NONE [place] [place]: 03-29-2023 End: 03-29-2023 ambulatory Diony J Stephanieey II Facility:[facility] Start: 03-29-2023 End: 03-29-2023 Admission to same day surgery center PHYSICIAN NO [facility] Work Phone: Start: 03-29-2023 End: 03-29-2023 ambulatory PHYSICIAN NO [facility] Work Phone: Start: 03-28-2023 End: 03-29-2023 ambulatory BECKY AGUIRRE Facility:[facility] Start: 03-27-2023 End: 03-27-2023 ambulatory Oscar Reed Other [employer] Other Start: 03-27-2023 Office outpatient visit 15 minutes Oscar Reed [facility] Start: 03-17-2023 End: 03-17-2023 ambulatory Diony Hugo Browney II Facility:[facility] Start: 03-17-2023 End: 03-17-2023 ambulatory PHYSICIAN NO [facility] Work Phone: Start: 03-17-2023 End: 03-17-2023 Patient encounter procedure PHYSICIAN NO [facility] [place] Work Phone: Start: 03-11-2023 End: 03-12-2023 ambulatory DO Diony J Stephanieey Facility:[facility] Start: 03-08-2023 End: 03-09-2023 ambulatory Roula SAEED [place] Start: 02-17-2023 End: 02-17-2023 Patient encounter procedure PHYSICIAN NO [facility] [place] Work Phone: Start: 02-17-2023 End: 02-17-2023 ambulatory PHYSICIAN NO [facility] Work Phone: Start: 02-17-2023 Office outpatient visit 25 minutes Beny MERCEDES Gastroenterology Start: 02-16-2023 End: 02-17-2023 ambulatory XXXX NONE [place] Start: 02-02-2023 End: 02-03-2023 ambulatory Donya OZUNA Facility:[facility] Start: 01-27-2023 End: 01-28-2023 ambulatory Franklyn MADERA [place] Start: 01-26-2023 End: 01-27-2023 ambulatory TAVO YANGANN Facility:[facility] Start: 01-24-2023 End: 01-24-2023 Emergency department patient visit Diony Singh II Facility:[facility] Start: 01-24-2023 Chart Update Donya madera Work Phone: -[facility] 600 DO Work Phone: Start: 01-24-2023 End: 01-24-2023 Emergency department patient visit DO Donya Billings Work Phone: [facility] Work Phone: Start: 01-21-2023 End: 01-21-2023 ambulatory Diony Singh II Facility:[facility] Start: 01-21-2023 End: 01-21-2023 ambulatory DO Donya Billings Work Phone: [facility] Work Phone: Start: 01-21-2023 End: 01-21-2023 Patient encounter procedure DO Donya Billings Work Phone: [facility] [address] Work Phone: Start: 01-21-2023 End: 04-25-2023 ambulatory WELDER GUN Roula SAEED [place] Start: 01-18-2023 End: 01-19-2023 ambulatory DO Diony Singh [place] Start: 01-05-2023 End: 01-06-2023 ambulatory Roula SAEED [place] Start: 01-05-2023 End: 01-05-2023 Emergency department patient visit Christiano Montanojdari [place] Start: 01-04-2023 End: 01-05-2023 ambulatory Roula SAEED [place] Start: 12-30-2022 End: 12-31-2022 Emergency department patient visit Mariya Kumari Facility:[facility] Start: 12-30-2022 End: 12-30-2022 Emergency department patient visit DO Donya Billings Work Phone: [facility]-Emergency Room Work Phone: Start: 12-29-2022 End: 12-29-2022 ambulatory Amanda Montiel Facility:[facility] Start: 12-29-2022 End: 12-29-2022 ambulatory DO Donya Billings Work Phone: [facility] Work Phone: Start: 12-29-2022 End: 12-29-2022 Patient encounter procedure DO Donya Billings Work Phone: [facility] Work Phone: Start: 12-24-2022 End: 12-25-2022 ambulatory Franklyn MADERA [place] Start: 12-20-2022 End: 12-20-2022 Emergency department patient visit Josué Napier Facility:[facility] Start: 12-20-2022 End: 12-20-2022 Emergency department patient visit DO Donya Billings Work Phone: [facility]-Emergency Room Work Phone: Start: 12-08-[address] Phillip Benjamin Facility: Start: 12-08-2022 FUV, Provider: Phillip Benjamin, Status: Pen, Time: 8:40 AM Donya Billings Work Phone: [facility] 250 DO Work Phone: Start: 12-08-2022 Office outpatient visit 25 minutes Donya Billings Work Phone: [facility] 250 DO Work Phone: Start: 12-06-2022 Chart Update Donya madera Work Phone: [facility] 250 DO Work Phone: Start: 11-25-[address] Donya Harvey Awa Facility:[id number] Start: 11-11-2022 End: 11-12-2022 ambulatory Donya BILLINGS Facility:[facility] Start: 11-10-2022 End: 11-11-2022 ambulatory Donya BILLINGS Facility:[facility] Start: 11-05-2022 End: 11-06-2022 Emergency department patient visit Donya Billings Facility:[facility] Start: 11-05-2022 End: 11-06-2022 Emergency department patient visit DO Donya Billings Work Phone: [facility]-Emergency Room Work Phone: Start: 10-31-2022 Chart Update Donya madera Work Phone: [facility] [address] [place] Work Phone: Start: 10-28-[address] Donya Harvey Awa Facility:[id number] Start: 10-13-2022 Office outpatient visit 25 minutes Donya Billings Work Phone: [facility] Work Phone: Start: 10-13-[address] Donya Harvey Awa Facility:[id number] Start: 10-07-2022 End: 10-08-[address] DONYA BILLINGS Facility: Start: 10-04-2022 End: 10-05-2022 ambulatory Donya OZUNA [place] Start: 10-01-2022 End: 10-02-2022 ambulatory UNKNOWN PROVIDER Facility:[facility] Start: 10-01-2022 End: 10-01-2022 Subsequent hospital visit by physician [facility] Comment on above: Thoracic spine pain Start: 09-30-2022 Orders Only Javad velez MD Work Phone: [facility] Start: 09-29-2022 End: 09-30-2022 ambulatory Jorge OCONNOR Facility: [facility] Start: 09-20-2022 End: 09-20-2022 Emergency department patient visit Donya Billings Facility:[facility] Start: 09-17-2022 End: 09-17-2022 Orders Only Javad Leach MD Work Phone: [facility] Start: 09-17-2022 End: 09-17-2022 Patient encounter procedure DO Donya Billings Work Phone: [facility] [address] Work Phone: Start: 09-02-2022 End: 09-06-2022 ambulatory UNKNOWN PROVIDER Facility:[facility] Start: 09-02-2022 End: 09-06-2022 Office outpatient new 45 minutes Javad Leach MD Work Phone: [facility] Comment on above: Thoracic spine pain (Primary Dx) Start: 09-01-2022 End: 09-01-2022 ambulatory Oliver Mario Other [employer] Other Start: 09-01-2022 Patient encounter procedure Oliver Mario [facility] Gastroenterology Start: 08-24-2022 Orders Only Javad velez MD Work Phone: [facility] Neurosurgery Start: 08-10-2022 End: 08-11-2022 ambulatory Donya BILLINGS Facility:[facility] Start: 08-10-2022 End: 08-10-2022 ambulatory Donya Billings Facility:[facility] Start: 08-10-2022 End: 08-10-2022 ambulatory DO Donya Billings Work Phone: [facility] Work Phone: Start: 08-10-2022 End: 08-10-2022 Patient encounter procedure DO Donya Billings Work Phone: [facility] [address] [place] Work Phone: Start: 07-28-2022 FUV, Provider: Phillip Benjamin, Status: Pen, Time: 1:10 PM Donya Billings Work Phone: [facility] 250 DO Work Phone: Start: 07-28-2022 Office outpatient visit 25 minutes Donya Billings Work Phone: [facility] 250 DO Work Phone: Start: 07-28-[address] Phillip Benjamin Facility: Start: 07-26-2022 Chart Update Donya madera Work Phone: [facility] 250 DO Work Phone: Start: 07-20-2022 End: 07-21-2022 ambulatory Donya OZUNA Facility:[facility] Start: 07-16-[address] Donya Harvey Awa Facility:[id number] Start: 07-15-2022 End: 07-16-[address] ZHANE MANTILLA . Facility: Start: 07-13-2022 End: 07-13-2022 ambulatory Oliver Mario Other [facility] [employer] Other Start: 07-13-2022 Telephone encounter Oliver CABEZAS G Gastroenterology Start: 06-21-2022 End: 06-21-2022 Emergency department patient visit Steve Coronel Facility:[facility] Start: 06-21-2022 End: 06-21-2022 Emergency department patient visit DO Donya Billings Work Phone: [facility]-Emer[facility] Work Phone: Start: 06-15-2022 End: 06-15-2022 ambulatory Phillip Benjamin Facility:[facility] Start: 06-15-2022 End: 06-15-2022 ambulatory DO Donya Billings Work Phone: [facility] Work Phone: Start: 06-15-2022 End: 06-15-2022 Patient encounter procedure DO Donya Billings Work Phone: [facility]-Electrodiagnostics Work Phone: Start: 06-04-[address] Phillip Benjamin Facility: Start: 05-12-2022 End: 05-12-2022 ambulatory Oliver Mario Other [employer] Other Start: 05-12-2022 Patient encounter procedure Oliver Mario [facility] Gastroenterology Start: 05-04-2022 End: 05-04-2022 ambulatory Donya Billings Facility:[facility] Start: 05-04-2022 End: 05-04-2022 ambulatory DO Donya Billings Work Phone: [facility] Work Phone: Start: 05-04-2022 End: 05-04-2022 Patient encounter procedure DO Donya Billings Work Phone: [facility] [address] Start: 04-28-2022 End: 04-28-2022 ambulatory Oscar Reed Other [facility] [employer] Other Start: 04-28-2022 Office outpatient visit 15 minutes Oscar Reed [facility] Urgent Care [facility] Start: 04-15-2022 End: 04-16-[address] ZHANE MANTILLA . Facility:[facility] Start: 04-08-[address] ZHANE MANTILLA . Faci lity:[facility] Start: 01-06-2022 End: 01-07-[address] ZHANE MANTILLA . Facility:[facility] Start: 12-08-2021 End: 12-08-[address] ZHANE MANTILLA . Facility:[facility] Start: 11-12-2021 End: 11-13-[address] ZHANE MANTILLA . Facility:[facility] Start: 10-13-2021 End: 10-13-[address] ZHANE MANTILLA . Facility:[facility] Start: 04-04-1998 End: 04-04-1998 Patient encounter procedure Conversion Yamel Ap [facility] Start: 04-04-1998 Results Only Conversion Beaker Ap [facility] Procedures Date Procedure Procedure Detail Performing Clinician Start: 03-29-2023 Esophagogastroduodenoscopy PHYSICIAN NO FAMILY Start: 01-24-2023 Duplex scan of lower limb veins PHYSICIA N NO FAMILY Start: 01-24-2023 Plain chest X-ray DO Donya Billings Work Phone: Start: 12-30-2022 CT of head without contrast DO Donya mckenzie Work Phone: Start: 12-30-2022 CT angiography of thorax DO Donya madera Work Phone: Start: 12-30-2022 Plain chest X-ray DO Donya Billings Work Phone: Start: 12-29-2022 Screening mammography of bilateral breasts DO Donya Billings Work Phone: Start: 12-20-2022 Plain chest X-ray DO Donya Billings Work Phone: Start: 11-25-2022 Echocardiography Donya Billings Work Phone: Start: 11-05-2022 Plain chest X-ray DO Donya Billings Work Phone: Start: 10-01-2022 CT NEURO IMAGE IMPORT Javad Nguyen Work Phone: Start: 09-17-2022 Computed tomography of thoracic spine without contrast DO Donya Billings Work Phone: Start: 06-21-2022 CT of chest without contrast DO Donya Billings Work Phone: Start: 06-21-2022 CT of abdomen and pelvis without contrast DO Donya Billings Work Phone: Start: 05-04-2022 MR thoracic spine wo con DO Donya madera Work Phone: Start: 05-04-2022 XR pre/post mri xray DO Donya Billings Work Phone: Start: 04-04-1998 CONVERTED CYTOLOGY VOCATIONAL NURSE LVN Conversion Yamel Ap section Donya mckenzie Work Phone: History Of Prior Surgery Leslie Billings Work Phone: Hysterectomy Donya Ashraf Awa Work Phone: Procedure on back Donya Andriy Billings Work Phone: Thyroidectomy Donya Ashraf Elfego madera Work Phone: Total colonoscopy Donya Ashraf Awa Work Phone: Plan of Treatment Date Care Activity Detail Author Start: 08-11-2027 Cholesterol [Mass/volume] in Serum or Plasma Cholesterol [facility] Start: 2027 Shingles (RZV) Vaccine (1 of 2) Shingles (RZV) Vaccine (1 of 2) [facility] Start: 04-20-2023 FUV, Provider: Phillip Benjamin, Status: Pen, Time: 3:00 PM FUV, Provider: Phillip Benjamin, Status: Pen, Time: 3:00 PM [facility] 250 DO Work Phone: Start: 03-29-2023 [facility] Start: 03-29-2023 End: 03-29-2023 [facility] Start: 01-24-2023 Duplex scan of lower limb veins US venous duplex LE LT [facility] Start: 01-24-2023 US Lower extremity vein - left [facility] Start: 12-30-2022 CT of head without contrast CT head/brain wo con [facility] Start: 12-30-2022 CT Unspecified body region WO contrast [facility] Start: 12-08-2022 FUV, Provider: Phillip Benjamin, Status: Pen, Time: 8:40 AM FUV, Provider: Phillip Benjamin, Status: Pen, Time: 8:40 AM [facility] [place] Work Phone: Start: 12-02-2022 FUV, Provider: Phillip Benjamin, Status: Pen, Time: 3:00 PM FUV, Provider: Phillip Benjamin, Status: Pen, Time: 3:00 PM [facility] Work Phone: Start: 11-25-2022 ECHO, Provider: [facility] 01,[id number], Status: Pen, Time: 7:45 AM ECHO, Provider: [facility] 01,[id number], Status: Pen, Time: 7:45 AM -[facility] [address] [place] Work Phone: Start: 09-30-2022 End: 10-01-2023 DOWNLOAD POWERSHARE IMAGES TO [facility] DOWNLOAD POWERSHARE IMAGES TO [facility] Imaging Routine Thoracic spine pain Expected: 09/30/2022, Expires: 10/01/2023 [employer] Work Phone: Comment on above: Expected: 09/30/2022 , Expires: 10/01/2023 Start: 09-17-2022 End: 09-18-2023 DOWNLOAD POWERSHARE IMAGES TO EPIC DOWNLOAD POWERSHARE IMAGES TO [facility] Imaging Routine Thoracic spine pain Expected: 09/17/2022, Expires: 09/18/2023 [employer] Work Phone: Comment on above: Expected: 09/17/2022 , Expires: 09/18/2023 Start: 09-06-2022 End: 09-07-2023 CT Thoracic spine WO contrast CT T-SPINE W/O CONTRAST Imaging Within 1 week Thoracic spine pain Expected: 09/06/2022, Expires: 09/07/2023 [employer] Work Phone: Comment on above: Expected: 09/06/2022 , Expires: 09/07/2023 Start: 09-02-2022 End: 09-02-2022 Patient encounter procedure 09/02/2022 Office Visit Orthopedics Javad Leach MD [address] [place] [address] [facility] Start: 08-24-2022 End: 08-25-2023 DOWNLOAD POWERSHARE IMAGES TO [facility] DOWNLOAD POWERSHARE IMAGES TO [facility] Imaging Routine Cervical spondylosis with myelopathy Expected: 08/24/2022, Expires: 08/25/2023 [facility] Work Phone: Comment on above: Expected: 08/24/2022 , Expires: 08/25/2023 Start: 08-10-2022 [facility] Start: 2022 Cholesterol [Mass/volume] in Serum or Plasma Cholesterol [facility] Start: 2022 Screening for malign ant neoplasm of colon [facility] Start: 02-27-2022 Influenza vaccination Influenza Vacc ine (#1) [facility] Start: 01-29-2020 Influenza vaccination INFLUENZA (#1) [facility] Start: 2017 Mammography MAMMOGRAM [facility] Start: 2017 Screening for malign ant neoplasm of breast Mammography [facility] Start: 11-28-2015 Annual wellness visit Annual W ellness Visit ([id number]) [facility] Start: 2007 HPV TESTING HPV TESTING [facility] Start: 1998 PAP TESTING PAP TESTING [facility] Start: 1998 Screening for malign ant neoplasm of cervix Pap Smear [facility] Start: 1996 Urine microalbumin profile DTAP,TDAP,TD (1 - Tdap) [facility] Start: 1995 ANNUAL PCP TEAM MANAGER [place] DISEASE VISIT ANNUAL PCP TEAM CHRONIC DISEASE VISIT [facility] Start: 1995 HEPATITIS C SCREENING HEPATITIS C SC ROSA [facility] Start: 1995 Hepatitis C screening Hepatitis C An tibody [facility] Start: 1995 HIV SCREENING HIV SCREENING [facility] Start: 1995 Tetanus + diphtheria + acellular pertussis vaccine (product) Tdap Booster [facility] Start: 1992 HIV screening HIV Test [facility] Start: 1977 COVID-19 Vaccine (#1) COVID-19 Vacci ne (#[facility] Start: 1977 Screening for malign ant neoplasm of colon Colonoscopy [facility] 25-hydroxyvitamin D2 [Mass/volume] in Serum or Plasma [facility] 25-hydroxyvitamin D3 [Mass/volume] in Serum or Plasma [facility] 25-Hydroxyvitamin D3+25-Hydroxyvitamin D2 [Mass/volume] in Serum or Plasma [facility] Albumin [Mass/volume ] in Serum or Plasma [facility] Albumin/Globulin ratio [facility] Borrelia burgdorferi Ab [Interpretation] in Serum [facility] Borrelia burgdorferi IgG Ab [Presence] in Serum or Plasma by Immunoassay [facility] Borrelia burgdorferi IgG+IgM Ab [Presence] in Serum by Immunoassay [facility] Borrelia burgdorferi IgM Ab [Presence] in Serum or Plasma by Immunoassay [facility] Cefuroxime free [Mass/volume] in Serum or Plasma [facility] Electrophoresis: [id number] [facility] Electrophoresis: [id number] [facility] Electrophoresis: beta-globulin [facility] Electrophoresis: raisa ma globulin [facility] Estrogen [Mass/volum e] in Serum or Plasma [facility] Globulin [Mass/volum e] in Serum [facility] Lutropin [Units/volu me] in Serum or Plasma [facility] Patient Education [facility] Work Phone: Patient referral [facility] Work Phone: Progesterone [Mass/volume] in Serum or Plasma [facility] Protein [Mass/volume ] in Serum or Plasma [facility] Rheumatoid factor [Units/volume] in Serum or Plasma [facility] Immunizations Immunization Date Immunization Notes Care Provider Watson deleon 06-05-2001 hepatitis B vaccine, adult dosage Donya Andriy Billings Work Phone: [facility] 250 DO Work Phone: 12-28-2000 hepatitis B vaccine, adult dosage Donya Billings Work Phone: [facility] 250 DO Work Phone: 11-21-2000 measles, mumps and rubella virus vaccine Donya Billings Work Phone: [facility] 250 DO Work Phone: 11-14-2000 hepatitis B vaccine, adult dosage Donya Billings Work Phone: [facility] 250 DO Work Phone: 01-07-1983 measles, mumps and rubella virus vaccine Donya Billings Work Phone: [facility] Work Phone: 10-11-1979 diphtheria, tetanus toxoids and acellular pertussis vaccine, unspecified formulation Donya Billings Work Phone: [facility] Work Phone: 10-11-1979 poliovirus vaccine, inactivated Donya Billings Work Phone: [facility] Work Phone: 08-01-1979 diphtheria, tetanus toxoids and pertussis vaccine Donya Billings Work Phone: [facility] Work Phone: 08-01-1979 poliovirus vaccine, inactivated Donya Billings Work Phone: [facility] Work Phone: 04-18-1979 diphtheria, tetanus toxoids and pertussis vaccine Donya Billings Work Phone: [facility] Work Phone: 05-13-1978 diphtheria, tetanus toxoids and pertussis vaccine Donya Billings Work Phone: [facility] Work Phone: 05-13-1978 poliovirus vaccine, inactivated Donya Billings Work Phone: [facility] Work Phone: 1977 poliovirus vaccine, inactivated Donya Billings Work Phone: [facility] Work Phone: Payers Date Payer Category Payer Medicaid MEDICAID FFS-TRA DITIONAL MEDICAID [id number] 2022-Present [address] [place] [address] Medicaid [id number] 2021 Self-pay [id number] 2014 Medicare MEDICARE MEDICAR E PART A & B [id number] 2014-Present [address] [place] [address] Medicare [id number] 1977 Unknown [id number] 2.16.840.1.296384.3.579.2.732 1977 Unknown [id number] 2.16.840.1.086003.3.579.2.732 1977 Unknown [id number] 2.16.840.1.157487.3.579.2.593 1977 Unknown [id number] 2.16.840.1.179664.3.579.2.593 1977 Unknown [id number] 2.16.840.1.944882.3.579.2.593 1977 Unknown [id number] 2.16.840.1.099141.3.579.2.593 1977 Unknown [id number] 2.16.840.1.832342.3.579.2.593 1977 Unknown [id number] 2.16.840.1.162202.3.579.2.593 1977 Unknown [id number] 2.16.840.1.764161.3.579.2.593 1977 Unknown [id number] 2.16.840.1.155933.3.579.2.593 1977 Unknown [id number] 2.16.840.1.661740.3.579.2.1068 1977 Unknown [id number] 2.16.840.1.595833.3.579.2.1068 1977 Unknown [id number] 2.16.840.1.075246.3.579.2.356 1977 Unknown [id number] 2.16.840.1.147809.3.579.2. 1977 Unknown [id number] 2.16.840.1.849062.3.579.2. 1977 Unknown [id number] 2.16.840.1.245280.3.579.2. 1977 Unknown [id number] 2.16.840.1.694631.3.579.2. 1977 Unknown [id number] 2.16.840.1.628155.3.579.2 1977 Unknown [id number] 2.16.840.1.731389.3.579.2. 1977 Unknown [id number] 2.16.840.1.463234.3.579.2. 1977 Unknown [id number] 2.16.840.1.312256.3.579.2. 1977 Unknown [id number] 2.16.840.1.082899.3.579.2. 1977 Unknown [id number] 2.16.840.1.442869.3.579.2. 1977 Unknown [id number] 2.16.840.1.349133.3.579.2. 1977 Unknown [id number] 2.16.840.1.783297.3.579.2 1977 Unknown [id number] 2.16.840.1.908759.3.579.2 1977 Unknown [id number] 2.16.840.1.507648.3.579.2 1977 Unknown [id number] 2.16.840.1.749845.3.579.2. 1977 Unknown [id number] 2.16.840.1.621763.3.579.2. 1977 Unknown [id number] 2.16.840.1.841382.3.579.2. 1977 Unknown [id number] 2.16.840.1.870859.3.579.2. 1977 Unknown [id number] 2.16.840.1.911607.3.579.2 1977 Unknown [id number] 2.16.840.1.973913.3.579.2 1977 Unknown [id number] 2.16.840.1.841835.3.579.2 1977 Unknown [id number] 2.16.840.1.783059.3.579.2 1977 Unknown [id number] 2.16.840.1.127204.3.579.2 1977 Unknown [id number] 2.16.840.1.570180.3.579.2 1977 Unknown [id number] 2.16.840.1.820255.3.579.2 1977 Unknown [id number] 2.16.840.1.302094.3.579.2 1977 Unknown [id number] 2.16.840.1.137727.3.579.2 1977 Unknown [id number] 2.16.840.1.087785.3.579.2.72 1959 Medicaid [id number] 2.16.840.1.544475.19 1959 Medicare [id number] 2.16.840.1.001301.19 Unknown Unknown [id number] 2.16.840.1.189951.3.579.2.531 Unknown [id number] 2.16.840.1.843899.3.579.2.531 Unknown [id number] 2.16.840.1.234060.3.579.2.531 Unknown [id number] 2.16.840.1.935106.3.579.2.531 Unknown [id number] 2.16.840.1.394838.3.579.2.531 Unknown [id number] 2.16.840.1.868649.3.579.2.531 Unknown [id number] 2.16.840.1.065987.3.579.2.531 Unknown [id number] 2.16.840.1.203640.3.579.2.531 Unknown [id number] 2.16.840.1.038715.3.579.2.531 Unknown [id number] 2.16.840.1.209568.3.579.2.531 Unknown [id number] 2.16.840.1.370398.3.579.2.531 Unknown [id number] 2.16.840.1.648515.3.579.2.531 Unknown [id number] 2.16.840.1.266870.3.579.2.531 Unknown [id number] 2.16.840.1.933939.3.579.2.531 Unknown [id number] 2.16.840.1.482064.3.579.2.531 Social History Date Type Detail Facility Tobacco smoking status FLIS Unknown if ever smoked [facility] Start: 1977 Sex Assigned At Not on file C [facility] Sex Assigned At Sex Assigned At [facility] Other Start: 11-19-2019 End: 03-29-2023 Tobacco smoking status FLIS Ex-smoker (finding) [facility] Start: 1977 Sex Assigned At Female F [facility] Start: 06-21-2022 End: 06-21-2022 Tobacco smoking status FLIS Never smoked tobacco (finding) [facility] Current smoker Current smoker [facility] DO Work Phone: Comment on above: gilson; quit 01/28/22; Tobacco smoking stat [facility] Tobacco smoking consumption unknown [facility] Start: 12-20-2022 End: 01-24-2023 History of tobacco use Current smoker [facility] History of tobacco use [facility] Start: 09-02-2022 Tobacco use and exposure Smokeless t obacco non-user [facility] Goals Date Patient Goal Desired Activity /State Clinical Notes 11-12-2021 to 04-06-2023 Note Date & Type Note Facility 04-06-2023 Note PROCEDURE: 30 DAY EV ENT MONITOR REFERRING PHYSICIAN: GILBERTO Akins INDICATIONS: Palpitations. PROCEDURE DETAILS: The patient was recorded for 21 days from 03/08/2023 to 03/29/2023. The patient's predominant rhythm was sinus. Minimum heart rate 64 beats per minute, average heart rate 83 beats per minute, maximum heart rate 105 beats per minute. There were multiple symptom events that were not specified but were sinus rhythm. There was occasional premature ventricular contraction. CONCLUSIONS: Relatively benign appearing event monitor. Occasional premature ventricular contraction. Clinical correlation suggested. READ BY: Owen Schmidt M.D. lr Dictated: 04/06/2023 [id number] Transcribed: 04/06/2023 cc:GILBERTO Akins [facility] Comment on above: Result Comment: Elec tronically Signed By: Brayan PELAYO, Owen Brown\.br\Date and Time Signed: 04/06/23 20:52 EST 03-29-2023 Procedure note [facility] 03-27-2023 Evaluation note Encounter Date Diagnosis Assessment Notes Feb, Rash and nonspecific skin eruption (ICD-10 - R21) Likely rash is related to monitor adhesive, although iron cannot be fully excluded. Stop iron. Consult prescribing physician tomorrow about iron supplementation and follow thheir plan of care. Continue with heart monitor and call burnt lime drawer office tomorrow morning for guidance as she may be reacting to adhesive and still has another 10 days. Pt received 60mg IM Kenalog in office today. Pt tolerated well. Performed by Paradise Welch CMA. Pt to take meds as prescribed -- start tomorrow. No other nsaids while on steroid. Pt to avoid contact with allergen. Avoid hot showers as it draws out rash. Pt to use topical calamine lotion or benadryl cream prn for itching. Otc benadryl prn. Pt to f/u with pcp as needed for persistent or worsening symptoms. Pt understood and agreed to treatment plan. [facility] Other 09-21-2023 Evaluation note* Encounter Date Diagnosis Assessment Notes Treatment Notes Treatment Clinical Notes Jan, Abdominal pain (ICD-10 - R10.9) Pt states her stomach feels inflammed. Jan, Bloating (ICD-10 - R14.0) Jan, Constipation (ICD-10 - K59.00) Pt has had constipation for a couple of years. Pt is taking Amitiza. She does not feel like she has a normal bowel movement with Amitiza. Pt is drinking about 80oz of water a day Pt advised to try low fod map diet Pt advised to try a probiotic Pt to take one metamucil gummy a day Pt to proceed with a COLON/EGD Jan, Blood in stool (ICD-10 - K92.1) [facility] Other 08-30-2023 NoteChief Complaint referral to [facility] for anxiety HPI Staff Patient will be establishing with Dr. Singh in February. Patient would like to have a referral to [facility] in [place] for her Anxiety. PHQ -9 score 6 SANDRA-7 score 18 History of Present Illness Patient presents today for a referral for her known anxiety & for GI issues. She states she will be establishing with Dr. Singh in February. She states she called Dr. Juarez's office and asked to have a colonoscopy but was told she needed a referral. She states she has been experiencing bloating, and in frequent bowel movements . She states she did see Dr. Juarez 3 months agobut the office insisted she get a referral from a provider. Review of Systems PHQ Score Initial Depression Screen Score: 3 Detailed Depression Screen Score: 6 Total Depression Screen Score: 9 Constitutional: no fever, no chills, no sweats, no weakness Skin: no Jaundice, no rash, no lesions, nopetechiae ENMT: no ear pain, no sore throat, no congestion, no hoarseness Respiratory: no shortness of breath, no cough, no orthopnea, no wheezing Cardiovascular: no chest pain, no palpitations, no edema Gastrointestinal: no nausea, no vomiting, no diarrhea, no GI bleeding, + bloating & constipation Genitourinary: no dysuria, no hematuria, no discharge, no pain Musculoskeletal: no back pain, no trauma Neurologic: no headache, no dizziness, no numbness, no weakness Psychiatric: no sleeping problems, moderate irritability, no mood swings/depression. Anxiety Additional ROS info: Except as noted in the above Review of Systems and in the History of Present Illness all other systems have been reviewed and are negative or noncontributory. Physical Exam Vitals & Measurements HR: 82(Peripheral) BP: 140/70 SpO2: 96% HT: 67 in HT: 170 cm WT: 122 kg WT: 268.4 lb BMI: 42.21 General: alert, no acute distress ENMT: TM's clear, oral mucosa moist, no pharyngeal erythema or exudate Cardiovascular: regular rate and rhythm, normal peripheral perfusion Respiratory: Lungs CTA, respirations non labored Extremities: no deformity, no trauma Neurological: oriented x 4, LOC appropriate for age, CN II-XII intact, motor strength equal & normal bilaterally, sensation equal & normal bilaterally, speech normal Assessment/Plan 1. Anxiety (F41.1: Generalized anxiety disorder) Referral placed for [facility] Services Completed & reviewed SANDRA- 7 score today in the office. SANDRA-7 score 18 and PHQ-9 score 9 F/U with PCP as scheduled in February 2023 [place] [facility] [place] 2. Screen for colon cancer (Z12.11: Encounter for screening for malignant neoplasm of colon) [place] [facility] [place] [facility] [place] Follow-up No qualifying data available Patient Education Mindfulness-Based Stress Reduction Problem List/Past Medical History Ongoing Anxiety BMI 40.0-44.9, adult Butterfly rash Chronic bilateral low back pain Chronic insomnia Diffuse arthralgia Fibromyalgia GERD (gastroesophageal reflux disease) Hypervitaminosis D Medication management Moderate recurrent major depression Morbid obesity Other specified hypothyroidism Overactive bladder Panic attack Resistance to insulin Smoker Symptomatic PVCs Vitamin D deficiency Historical Smoker Procedure/Surgical History Injection of therapeutic substance into bladder wall (12/14/2021), Injection of therapeutic substance into bladder wall (01/07/2020), Injection of therapeutic substance into bladder wall (04/25/2017), robotic surgery converted to laparoscopic bilateral salpingectomy (11/27/2014), Lumbar epidural steroid injection (06/14/2013), Radiofrequency ablation of nerve root of lumbar spine using fluoroscopic guidance (01/04/2013), Injection into facet joint of lumbar spine using fluoroscopic guidance (12/14/2012), Injection into facet joint of lumbar spine using fluoroscopic guidance (11/16/2012), Lumbar Selective Nerve Root Block (07/28/2012), Lumbar Selective Nerve Root Block (06/23/2012), Cystourethroscopy with dilation of urethral stricture (04/26/2011), section, essure procedure, LEEPprocedure of cervix, Thyroidectomy. Medications alprazolam 0.5 mg Tab, 0.5 mg= 1 tab(s), Oral, Daily, 2 refills aspirin 81 mg oral capsule baclofen 20 mg Tab, Oral, TID calcium (as carbonate)-vitamin D 500 mg-200 intl units oral tablet, 1 tab(s), Oral, BID, 5 refills cloNIDine 0.1 mg tab, 0.1 mg= 1 tab(s), Oral, Daily, PRN, 5 refills Diflucan 150 mg Tab, 150 mg= 1 tab(s), Oral, q7day, Not taking diltiazem CD 240 mg/24 hours Cap-ER, 240 mg= 1 cap(s), Oral, Daily lubiprostone 24 mcg Cap, 24 mcg= 1 cap(s), Oral, BID, 5 refills magnesium oxide, 400 mg, Oral, BID melatonin, 10 mg, Oral, Once a day (at bedtime) Multi Vitamin+ Synthroid 125 mcg (0.125 mg) Tab traMADol 100 mg oral tablet, 100 mg= 1 tab(s), Oral, TID Tylenol Vitamin D3 2000 intl units or (more content not included)...[facility]Result Comment: Electronically Signed By: TAVO HARRIS CNP\riley\Date and Time Signed: 01/26/23 14:46 [id number] Note [id number]:127[facility] 10-04-2022 NoteCystoscopy with Botox injection ? Voiding after the procedure: there may be some pain, burning, urgency, frequency and blood tingedurine following the procedure. These symptoms usually resolve within 2-5 days. Drink the amount of fluid it takes to keep the urine pink to yellow or clear in color. Drinking enough water and fluids will help to ease any discomfort after your procedure. ? It may take a few days to a week to notice a gradual improvement in the overactive bladder symptoms. ? If you are having problems that seem out of the ordinary, please call. ? If unable to contact your physician and you feel it is an emergency, go to the nearest emergency room or call 911 ? Do not lift more than fifteen pounds for 1-2 days. If you see a lot of blood, you probably did too much. ? Diet ? you may resume your normal diet. ? Pain control ? You may take extra strength Tylenol or Motrin for discomfort. ? Call if you have a fever over 100 degrees.[facility] 09-02-2022 History of Present illness Narrative* Javad Leach MD - 09/02/2022 10:49 AM EDT Images from the original note were not included. CONSULTED BY: CC: Mid-thoracic back pain HPI: 47yo female who does not work secondary to being on disability from fibromyalgia and mental illness with a long history of mid-thoracic back pain. She adamantly denies any trauma. She denies anyneurologic symptoms, NO lower extremities pain, numbness, tingling, weakness; NO upper extremity pain, numbness, tingling, weakness; NO symptoms of myelopathy, NO bowel/bladder symptoms. She has had many injections and procedures that affect her pain minimally for a short period. She has been told there's a thoracic disc herniation that may be causing her symptoms. For PMHx, PSHx, medications, allergies, SOCHx, ROS and FAMHx, please refer to the scanned New patient Questionnaire PHYSICAL EXAM: General: AXOX3, no acute distress she is moderately obese Lower extremities: She rises cautiously from a seated position. She can heel walk and toe walk and tandem walk with the aid of holding onto the table. She gets off the exam table without difficulty. 5/5 all muscle groups and sensation is globally intact to light touch L2-S1 dermatomes bilateral lower extremities. DTRs are normoactive unequal but difficult to elicit in her knee jerk and ankle jerkshe has no clonus full nontender range of motion bilateral hips knees and ankles. Upper extremities: 5/5 all muscle groups sensation is globally intact to light touch C5-T1 dermatomes. DTRs are normoactive unequal biceps triceps brachioradialis; negative Uyen signs bilaterally. Full nontender range of motion bilateral shoulders elbows wrists. Spine: Cervical spine range of motion is full nontender she is tender to palpate the midline of hermidthoracic spine. Lumbar spine range of motion fairly normal nontender. INVESTIGATIONS: Recent MRI of her thoracic spine as below minimal disc bulge at T8-9 only effacing the anterior cord but not displacing the cord and plenty of CSF posteriorly. IMPRESSION: 47yo female with significant midthoracic back pain asymptomatic thoracic disc herniation. PLAN: Told the patient I would like to do a CT scan of her thoracic spine as most of these are traumatic and have to do with rib articulations or he would dislocations. Otherwise I think she should look into breast reduction surgery and possibly gastric bypass surgery. I do not recommend she focus on this likely asymptomatic disc herniation. We will call on the phone there is anything concerning on the CT scan of her thoracic spine. Otherwise she can follow up PRN. * Susan Lomeli RN - 09/02/2022 10:20 AM EDT Patient was identified by name and date of . Susan Lomeli RN Patient at risk for falls:No Falls Risk protocol implemented: No documented in this [id number] Evaluation note* Encounter Date Diagnosis Assessment Notes Treatment Notes Treatment Clinical Notes Aug, Irritable bowel syndrome with constipation (ICD-10 - K58.1) Start Amitiza 24mcg twice daily. Start Miralax in addition to Amitiza. Titrate dose as needed. Referral to [facility] for rectal manometry [facility] Other 03-01-2023 History of Present illness Narrative* Patient is here for for follow-up for recent evaluation for symptoms of palpitation and documentation PVCs, anxiety and obesity. Since last time I saw her she continues to have the same symptoms and a rare episode of nonexertional chest pain. She admits to high level of anxiety. Her recent event monitor showed PVCs few 2-3 beats sequential PVCs were seen interpreted as nonsustained ventricular tachycardia but no long episode. Plan o 1 brief run of f atrial tachycardia seen. * Plan * 1. Symptoms of palpitation probably due to PVCs with increasing frequency recently with previous report of 1 syncopal episode remotely. EKG showed normal sinus rhythm with normal QRS and QT duration.Her Holter monitor appears fairly benign patient has not started using her magnesium and beta-shorty * 2. Anxiety disorder * 3. Obesity * 4. Previous documentation of rare PVCs and PACs on Holter monitor * 5. MRI recently suggestive of possible partially empty sella turcica * 6. No evidence of coronary artery disease or heart failure clinically * 7. Hypothyroidism on treatment * 8. Few very atypical nonexertional chest pain she admits to high level of anxiety * Plan * 1. I advised the patient to start magnesium oxide 400 mg p.o. twice daily and try metoprolol ER 25 mg daily * 2. I did have an event monitor with her * 3. I encouraged her to lose weight and exercise * 4. I advised to notify me change in cardiac status or symptoms * 5. I reviewed with her the results of her recent diagnostic testing * 6. We will see her back in 4 months or earlier if the need arise [facility] [address] DO Work Phone: [phone] NoteCONSULTATION CONSULTATION DATE: 07/15/2022 HISTORY OF PRESENT ILLNESS: This is a 47-year-old female who returns to the clinic for a three month follow up for her chronic mid back pain and lower back pain. She was last seen on 04/15/2022 and, at that time, she received a referral to Dr. Bradley Leach at [facility]. She was having increased thoracic pain with her thoracic ablation done on 10/13/2021 to T7, T8 and T9, T10. She did obtain an updated MRI which confirms pathology at those levels, with disc bulging. Today, she is complaining of a burning pain along the T9 and T8 that is radiating to the left. She describes it as a burn at a level of 6/10. It is aggravated by standing, walking, pushing, pulling, lifting and housework. Current medications include tramadol 100 mg b.i.d., Restoril 15 mg daily, baclofen 20 mg q.h.s. and amitriptyline. Patient's REVIEW OF SYSTEMS / PAST MEDICAL HISTORY / ALLERGIES and IMAGES have been reviewed and noted on the chart. PHYSICAL EXAM: VITAL SIGNS: Blood pressure is 170/87. Heart rate is 109. She is 5'7 , weighs 273 pounds. GENERAL IMPRESSION: Pleasant, appropriate, no acute distress. FOCUSED EXAM - BACK: Range of motion is functional in lateral rotation and flexion/extension. Bilateral thoracic trapezius muscles are spasmodic with trigger points identified bilaterally. Compression produces a jump response and reproduces the patient's pain symptomatology. No spinal axial pain upon compression along the lower thoracic facets. MUSCULOSKELETAL: Upper and lower extremities motor is 5/5 bilaterally. Patient does walk unassisted. NEUROLOGICAL: Patchy hypoesthesia noted along the T8-T9 dermatome to the mid axillary line. Lower extremity reflexes are 2/2 bilaterally. DIAGNOSIS: Thoracic trapezius spasms, thoracic degenerative disc disease, thoracic spondylosis. PLAN: The patient will receive bilateral thoracic trigger point injections in the clinic, which she does consent to. A new neurosurgery referral will be sent to Dr. Bradley Leach at his new location at [facility] in [place]. Refills for baclofen and tramadol at the set dose and frequency will be sent to her pharmacy. We will furnish a letter to her PCP, at the patient's request, to take over her tramadol prescription. She will be followed up in the office post procedure.[id number] Note CONSULTATION PROCEDURE DATE: 07/29/2022 PREOPERATIVE DIAGNOSIS: Bilateral thoracic trapezius spasms. POSTOPERATIVE DIAGNOSIS: Bilateral thoracic trapezius spasms. PROCEDURE: Bilateral trapezius trigger point injections. Subsequent to obtaining informed consent, the patient was placed in the upright standing forward flexion position. Alcohol prep was used to sterilize the site. A 25 gauge needle with 0.125% Marcaine, 40 mg of Kenalog was divided into two locations. The needle was placed to rest inside the trigger zone. Negative heme. Medication was injected in a slow, fan-like pattern and patient tolerated the procedure well. She will be followed up in the office.[id number] Evaluation note* Encounter Date Diagnosis Assessment Notes Treatment Notes Treatment Clinical Notes Apr, Irritable bowel syndrome with constipation (ICD-10 - K58.1) Stop Amitiza Start Trualcne 3mg daily Follow up in 3-4 months [facility] Other 11-30-2022 Evaluation note* Encounter Date Diagnosis Assessment Notes Treatment Notes Treatment Clinical Notes Mar, Cough (ICD-10 - R05.9) Covid pos, flu neg, see above. Mar, COVID (ICD-10 - U07.1) Covid test pos in office today. Pt is to use inhaler as prescribed prn for cough and wheeze. Supportive care as directed. Push fluids and rest. Pt is to take otc antipyretic prn for fever and aches. Pt is to take rx cough suppressant prn for cough. They are to follow the recommended stay at home quarantine rules for 5 days from onset of sx with 5 days of mask wearing in public and they are to avoid contact with others in the home. Pt is to be re-evaluated after tx if sx worsen or don't improve by pcp or UC. Discussed at length sx of resp distress that would indicate need for immediate ER tx. Sx include but not limited to worsening SOB, wheeze, dyspnea, difficulty swallowing or breathing, and chest pain. Go straight to ER for any of these sx. Pt is to call the office with any questions or concerns regarding dx and tx. Information sheet with test results and quarantine guidelines was provided to pt in office today. Pt was referred to PCP for chronic management. Pt understood and agreed to tx plan. Mar, Sore throat (ICD-10 - J02.9) strep neg, see above. [facility] Other 11-17-2022 NoteCONSULTATION CONSULTATION DATE: 04/15/2022 HISTORY OF PRESENT ILLNESS: This is a 47-year-old female who returns to the clinic for a three month follow up for her chronic mid back pain. Today, she is somewhat tearful, complaining of 6-7/10 pain to her lower back. With activity such as twisting, pushing, pulling, stairs and bending, her pain will increase to 10/10. Her last MRI of her thoracic area was two years ago which did show disc protrusion to T7-T8, as well as moderate anterior indentation of the thecal sac. There is also slight core effacement at T7-T8 as well. The patient did have radiofrequency ablation to this level in September of 2021, which initially gave her a little relief but is no longer. Medications include baclofen 10 mg q.h.s., amitriptyline, tramadol 100 mg b.i.d., Xanax, BuSpar and Restoril. The patient does have severe anxiety. It has been increased recently due to deaths in the family. Patient's REVIEW OF SYSTEMS / PAST MEDICAL HISTORY / ALLERGIES and IMAGES have been reviewed and they are noted on the chart. PHYSICAL EXAM: VITAL SIGNS: Blood pressure 161/92, heart rate is 84. Temperature is 97.7. She is 5'7 , weighs 118 kg. GENERAL IMPRESSION: Pleasant, appropriate, no acute distress. FOCUSED EXAM - BACK: Range of motion is functional in lateral rotation and flexion/extension. Reproduction of thoracic spinal axial pain upon compression of T7-T8 and T9-T10. Pain does radiate to bilateral mid axillary line. Positive jump response to compression. Trapezius muscles are taut bilaterally. MUSCULOSKELETAL: Motor is intact, 5/5 bilaterally. No vasomotor changes noted. NEUROLOGICALLY: Patchy hypoesthesia to left C7 dermatome. Patient is cognitively intact. Brachioradialis and triceps reflexes are +1 bilaterally. DIAGNOSIS: Thoracic degenerative disc, thoracic radiculitis, thoracic disc protrusion. PLAN: We will refill tramadol 100 mg b.i.d. We will get an update thoracic MRI and send a referral to spine surgeon in [place], Dr. Bradley Leach. Patient is in agreement to this, and we will follow her up at our clinic in three months' time.[facility] [id number] NoteCONSULTATION CONSULTATION DATE: 01/06/2022 This is a 46-year-old female who returns to the clinic status post right SI RFA that afforded her 60% relief and left #1 SI joint injection that afforded her 80% relief. She reports her pain is 4 o u tog 10 today described as dull and aching which is mostly to her right side. She is complaining of hip pain but recent films by her PCP shows no acute arthropathy, dislocation and her joint space is well maintained. She states some days are better than others, depending on her activity. 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 Current medications include amitriptyline 75 mg q.h.s., tramadol 100 mg b.i.d., Baclofen, Restoral and BuSpar. Activities that aggravate her pain are housework, lifting, standing, pushing, pulling and bending. REVIEW OF SYSTEMS, PAST MEDICAL HISTORY, ALLERGIES AND IMAGES: Have been reviewed and noted in the chart. PHYSICAL EXAM: VITAL SIGNS: Blood pressure 143/87, heart rate is 79, temperature is 98.2. Height is 5'7, weighs 115 kg. GENERAL APPEARANCE: Appropriate, in no acute distress. FOCUSED EXAM: BACK: No reproduction of spinoaxial pain to compression along the posterior elements of the lumbar facets. Range of motion is functional in lateral rotation and flexion/extension. Rick's point is mildly tender to the right with minimal referral pain to the right gluteal. Paravertebral muscles are taut but non-spasmodic. Trigger point identified to right gluteal muscle, lateral to her SI joint. Positive jump response to palpation which reproduces the patient's pain symptomatology. MUSCULOSKELETAL: Motor is intact, 5 out of 5 strength bilaterally. The patient ambulates without difficulty. Does not use assistive device. NEUROLOGICAL: Radicular sensory is intact, bilateral +2 patellar Achilles reflex. Negative polyneuropathy. DIAGNOSIS: Bilateral sacroiliitis, lumbar degenerative disease, lumbar spondylosis, obesity. PLAN: The patient will receive right gluteal trigger point injection in the clinic which she does agree to. We will give her U-tox in the office as well. For her chronic right gluteal and hip pain, since pathology ruled out via imaging and clinical exam, I recommended a physical therapy consult and subsequent treatment to address her pain along the right SI and/or right hip. The patient does agree to initial consultation and prefers this at [facility]. We will see the patient in three months' time unless otherwise indicated.[id number] NoteCONSULTATION PROCEDURE DATE: 01/06/2022 PRE AND POSTOPERATIVE DIAGNOSIS: Right gluteal spasms. PROCEDURE: Right gluteal trigger point injection. Subsequent to obtaining informed consent, the patient was placed in the upright standing forward flexion position. Alcohol prep was used to sterilize the site. 25-gauge needle with 0.125% Marcaine and 40 mg of Kenalog was placed to rest in the trigger zone. Negative heme. Medication was injected in the fan-like pattern and the patient tolerated the procedure well with no overt complications. She will be followed up in the office.[facility] 11-12-2021 NoteCONSULTATION CONSULTATION DATE: 11/12/2021 HISTORY OF PRESENT ILLNESS: This is a 46-year-old female returning to the clinic status post bilateral RFA at T7, T8 and T9, T10 with her last procedure on 10/13/2021. At this time, patient feels she has gained 50% relief but is expecting further relief as time goes on. Today, she is complaining of right hip pain which she states radiates down the lateral aspect of her right lower extremity to the mid thigh. She describes it as 5/10 and it is sharp and dull. In December of 2019, she did have a right SI RFA which gave her great relief. Recently, she had a right greater trochanteric bursa injection by her PCP, Dr. Billings, which was helpful but feels her SI joint is her primary origin of concern. Patient has difficulty raising her right leg to step in the shower secondary to the pain. Standing, walking, stairs, bending and physical activity aggravate her pain. She does use heat daily which decrease her pain. Current medications include baclofen 10 mg q.h.s., tramadol 100 mg b.i.d., amitriptyline. She is unable to take NSAIDs secondary to allergy. Patient's REVIEW OF SYSTEMS / PAST MEDICAL HISTORY / ALLERGIES and IMAGES have been reviewed and they are noted in the chart. PHYSICAL EXAM: VITAL SIGNS: Blood pressure 147/94, heart rate is 88. Her height is 5'7 1/2 and weighs 120.3 kg. GENERAL APPEARANCE: Pleasant, appropriate, no acute distress. BACK: Range of motion is functional in lateral rotation and flexion/extension. Paravertebral muscles are non-spasmodic. No reproduction of spinal axial pain to the lower thoracic facets, T7-T10, representing successful radiofrequency ablation. Rick's point is tender bilaterally, right greater than left. Referral of pain to right hip and right groin, which is concordant with right sided sacroiliitis. Paul's is positive, as is compression and thigh thrust test. MUSCULOSKELETAL: Motor is intact, 4/5 bilaterally. Patient walks with a steady gait, does not use an assistive device. NEUROLOGICALLY: Negative polyneuropathy. +2 bilateral patellar and Achilles reflexes. IMPRESSION: Bilateral sacroiliitis, thoracic spondylosis, lumbar spondylosis and lumbar radiculitis. PLAN: We will repeat her right SI radiofrequency ablation and gain authorization as well for a left SI joint injection. Patient is to continue with her exercises as discussed, stretching, heat rub and vitamin regimen. Patient was encouraged to do aquatic therapy at a public pool. Patient will be followed up in the office post procedure and patient wishes to move forward with authorization. Patient agrees with the plan of care. IF Signed and Approved by: BHAVNA MARR . 11/25/2021 16:24:00[facility] noteNo assessment information [facility] Work Phone: [facility] Other [facility] note* Diagnosis Cervical spondylosis with myelopathy- [facility] Thoracic spine pain- Primary Pain in thoracic spine [facility] Diagnosis Thoracic spine pain- Primary Pain in thoracic spine [facility] Diagnosis Thoracic spine pain Pain in thoracic spine [facility] Diagnosis Onset Date Resolution Status Abdominal pain acute [facility] Work Phone: History general Narrative - Reported* Type Description Date Medical History Fibromyalgia Medical History arthritis in knees Medical History bursitis in hips Medical History Arthritis in lower back Medical History IBS Medical History depression Medical History anxiety Medical History Graves disease Medical History S/P Thyroidectomy Surgical History x 4 Surgical History hysterectomy Surgical History Thyroidectomy 06/2018 Hospitalization History childbirth Hospitalization History see surgery [facility] Other History general Narrative - Reported* Type Description Date Medical History Fibromyalgia Medical History arthritis in knees Medical History bursitis in hips Medical History Arthritis in lower back Medical History IBS Medical History depression Medical History anxiety Medical History Graves disease Medical History S/P Thyroidectomy Medical History hypertensive heart disease Surgical History x 4 Surgical History hysterectomy Surgical History Thyroidectomy 06/2018 Hospitalization History childbirth Hospitalization History see surgery [facility] Other History of Present illness Narrative* Patient is here for follow-up to management for previous evaluation for palpitation with documentation of PVCs, complaint of chest pain and shortness of breath. She recently underwent work-up. Her echocardiogram and stress test were reassuring. She had 1 visit to the emergency room with palpitation. She was noted to have hypomagnesemia. She report her symptoms initially improved with magnesium supplementation but recently have slight increase of her palpitation. She also describes some anxiety. * Plan * 1. Symptoms of palpitation documentation on event monitor of PVCs and 2 brief run of nonsustained ventricular tachycardia 1 is 3 beat and the other is 5 beat. Episode of atrial tachycardia was seen. She initially reported improvement of her palpitation with low-dose metoprolol and magnesium but rece ntly has been having on and off symptoms. * 2. Patient reports intermittent episodes of shortness of breath and atypical chest pain. Recent stress test and echocardiogram were reassuring * 3. Obesity * 4. Previous documentation of rare PVCs and PACs on Holter monitor * 5. MRI recently suggestive of possible partially empty sella turcica * 6. No evidence of coronary artery disease or heart failure based on clinical grounds and testing * 7. Hypothyroidism on treatment * 8. Hypertension with occasional high reading could be related to anxiety * 9. Recent documentation of mild hypomagnesemia with no clear etiology of that currently on magnesium replacement * Plan * 1. I advised the patient to increase metoprolol to 50 mg once daily to see if it will help alleviate some of her palpitation and improve her blood pressure and symptoms * 2. I did review the results of her recent ER visit and hospital record in addition I did review with her her echo and a stress test * 3. I encouraged her to lose weight and exercise * 4. I advised to notify me change in cardiac status or symptoms * 5. We will see her back in 4 months or earlier if the need arise [facility] Umair Del Angel DO Work Phone: History of Present illness Narrative* Patient is here for earlier follow-up to discuss recent symptoms. She was seen recently for symptoms of palpitation, obesity and hypertension. She recently had a visit to the emergency room because of elevated blood pressure and increasing symptoms of palpitation. Her evaluation in the emergency room was benign. Patient admits to very high level of anxiety and admits that she was having some vague symptoms of walking on needles but all her symptoms seem to resolve spontaneously. She continues to complain of palpitation she is concerned that an episode of NSVT was documented on the monitor. The patient reports she is reasonably active. She denies lightheadedness, dizziness or syncope. She con tinues to complain of insomnia and back pain and she has been seen the pain specialist for that. * Plan * 1. Symptoms of palpitation documentation on event monitor of PVCs and 2 brief run of nonsustained ventricular tachycardia 1 is 3 beat and the other is 5 beat. Episode of atrial tachycardia was seen. She initially reported improvement of her palpitation with low-dose metoprolol and magnesium but rece ntly has been having on and off symptoms. * 2. Patient reports intermittent episodes of shortness of breath and atypical chest pain * 3. Obesity * 4. Previous documentation of rare PVCs and PACs on Holter monitor * 5. MRI recently suggestive of possible partially empty sella turcica * 6. No evidence of coronary artery disease or heart failure clinically * 7. Hypothyroidism on treatment * 8. Few very atypical nonexertional chest pain she admits to high level of anxiety * 9. Hypertension with occasional reading could be related to anxiety and pain * Plan * 1. I advised the patient to continue present medical regimen and continue to monitor her blood pressure once or twice weekly * 2. I did have an event monitor with her * 3. I encouraged her to lose weight and exercise * 4. I advised to notify me change in cardiac status or symptoms * 5. I commended to proceed with an echocardiogram and GXT in view of her recent complaint of shortness of breath and intermittent chest pain I did discuss with her the possibility of EP referral if continues to have palpitation but I clearly indicated that I suspect that her ectopy is of a benign prognosis * 6. We will see her back in 4 months or earlier if the need arise [facility] Work Phone: Hospital Discharge instructions Additional Instructions Follow up with your primary care doctor Continue to take your tramadol as needed for pain Return to the ED if you develop worsening symptoms or concernsA[facility] Work Phone: Hospital Discharge instructions Additional Instructions Thankfully your tests looked good today. I apologize for the delay with the head CT. We do need to figure out whether you need more blood pressure medicine. The best way to do this is with outpatient ambulatory blood pressure monitoring. Check your blood pressure once or twice daily, taking it when you are not having anxiety or other acute symptoms. If your blood pressure is high enough to worry you, it is fine to take the clonidine that was prescribed. You may also take the Xanax if you are feeling anxious. We are happy to see you if there are any specific concerns or if you are having symptoms that are not relieved with medications. Follow-up with your primary care doctor and with your burnt lime drawer as planned.[facility] Work Phone: Hospital Discharge instructions Additional Instructions You can take Naprosyn and Tylenol as needed for your eye pain. Follow-up for your stress test and continue to take your antihypertensive medication as prescribed. Follow-up with your PCP for ongoing treatment of your high blood pressure. Follow-up with the eye doctor listed below regarding your left eye pain.[facility] Work Phone: Hospital Discharge instructions Additional Instructions DISCHARGE INSTRUCTIONS FOR ENDOSCOPY FOR COLONOSCOPY: -Expect a gassy or full feeling after a colonoscopy. Report any NEW abdominal pain or vomiting. FOR KATE/EGD/ERCP/PEG: -Your throat may feel sore today from the scope that the doctor passed through your throat to visualize your stomach. Take a throat lozenge or suck on ice to ease the discomfort. -Do NOT smoke. -You may notice some streaks of blood in your sputum if the doctor has taken a biopsy. Notify the doctor if you cough up large amounts of blood. -Expect a gassy or full feeling after esophagoscopy. Report any persistent pain or vomiting. -Take it easy today. You need not stay in bed, but avoid strenuous activities such as jogging. FOR SEDATION FOR 24 HOURS: -NO driving -Do NOT operate machinery such as power tools, lawn mowers, snow blowers, sewing machines, etc. -Avoid alcoholic beverages and drugs for allergies, nerves, or sleep. -Do NOT stay alone. Do NOT leave your child unattended. -Do NOT make important personal or business decisions or sign any legal documents. -Eat solid foods and drink liquids in smaller amounts than usual until normal appetite returns. If you should experience an upset stomach, liquids high in sugar content (soda, Jewel-aid, non-acid juices) are recommended. -You can resume normal activities tomorrow. FOLLOW UP Please call the office and make a follow up appointment to see me in 6-8 weeks. Low FODMAP diet [employer] 1 p.o. every morning -Notify the doctor if you have any problems. -Office number [phone] [facility] Work Phone: Chief Complaint and Reason for Visit Chief Complaint thoracic spondylosis Chief Complaint thoracic spondylosis Palpitations Chief Complaint thoracic spondylosis Palpitations L side flank pain Chief Complaint Palpitations L side flank pain e89.0 l65.9 e55.9 E03.8 E88.81 Z13.1 Z68.41 Chief Complaint L side flank pain e89.0 l65.9 e55.9 E03.8 E88.81 Z13.1 Z68.41 m54.6 Chief Complaint CP, Heart palps, SOB dizzy, SOB Screening Chief Complaint CP, Heart palps, SOB dizzy, SOB Screening high BP,pressure in head Chief Complaint CP, Heart palps, SOB dizzy, SOB Screening high BP,pressure in head high bp/sob Chief Complaint dizzy, SOB Screening high BP,pressure in head I49.3 R00.2 F41.9 high bp/sob e89.0 Chief Complaint dizzy, SOB Screening high BP,pressure in head I49.3 R00.2 F41.9 high bp/sob e89.0 F41.1 Z79.899 Z79.89 Chief Complaint Screening high BP,pressure in head I49.3 R00.2 F41.9 high bp/sob e89.0 F41.1 Z79.899 Z79.89 abd pain, constipation, blood in stool/rash Reason for Visit Abdominal pain Advance Directives No Advanced Directives Records Found Advance Directive Response Recorded Date/ Time Advance Directives No January 2:47pm Advance Directive Response Recorded Date/ Time Advance Directives No January 3:47pm Family History Relationship Condition Age at Onset Recorded Date/T neel grandparent Malignant neoplasm of breast Unknown grandparent Lymphoma Unknown No Family History Records FoundUnknown Family Member Name Dates Details Denies No pertinent family h istory: Mother, Father(V49.89, Z78.9) Status: Chief Complaint LUPE PICKARD is being seen for a 2 month follow-up of.LUPE PICKARD is being seen for echo and tress results.* 09-22-22. * LUPE PICKARD is being seen for follow-up of a hospitalization for. Reason for Referral Specialty Diagnoses / Procedures Referred By Yared madera Referred To Contact Radiology Diagnoses Thoracic spine pain Procedures CT T-SPINE W/O CONTRAST Javad Leach MD [address] [place] [address] [facility] CT SCAN Referral ID Status Reason Start Date Expiration Date V isits Requested Visits Authorized [id number] Authorized 09/06/2022 09/06/2023 1 1 Specialty Diagnoses / Procedures Referred By Yared madera Referred To Contact Radiology Diagnoses Cervical spondylosis with myelopathy Procedures DOWNLOAD POWERSHARE IMAGES TO Javad Leach MD [address] [place] [address] S DIAGNOSTIC RADIOLOGY [address] [place] [address] Referral ID Status Reason Start Date Expiration Date V isits Requested Visits Authorized [id number] Authorized 08/24/2022 08/24/2023 1 1 Summary Purpose Additional Source Comments Source Comments (unrecognize d section and content) In the event this informatio n is protected by the Federal Confidentiality of Alcohol and Drug Abuse Patient Records regulations: The Federal rules restrict any use of the information to criminally investigate or prosecute any alcohol or drug abuse patient.[facility] REASON FOR VISIT (unrecogniz ed section and content) Reason Comments New patient, to establish relationship B ack pain Specialty Diagnoses / Procedures Referred By Contac t Referred To Contact Neurosurgery Diagnoses Protrusion of thoracic intervertebral disc Thoracic radiculitis Ernie Roper [address] [place] [address] [facility] NEUROSURGERY [address] [place] [address] Referral ID Status Reason Start Date Expiration Date V isits Requested Visits Authorized [id number] Authorized 07/22/2022 07/22/2023 3 3 Specialty Diagnoses / Procedures Referred By Contac t Referred To Contact Radiology Diagnoses Thoracic spine pain Procedures CT NEURO IMAGE IMPORT(KYLE) DOWNLOAD POWERSHARE IMAGES TO Javad Leach MD [address] [place] [address] [facility] DIAGNOSTIC RADIOLOGY [address] [place] [address] Referral ID Status Reason Start Date Expiration Date Visits Re quested Visits Authorized [id number] Closed 09/30/2022 09/30/2023 1 1 Care Teams (unrecognized sec tion and content) Team Status: Inactive Member Role Status Dates Donya Billings , DO Primary Care Provider Active MARCELLUS Tyson Attending Provider Active Team Status: Active Member Role Status Dates Donya Billings , DO Primary Care Provider Active Team Status: Inactive Member Role Status Dates Donya Billings , DO Primary Care Provider Active Phillip Benjamin MD Attending Provider Active Team Status: Inactive Member Role Status Dates Donya Billings , DO Primary Care Provider Active Steve Coronel , DO Emergency Provider Active Team Status: Inactive Member Role Status Dates Donya Billings , DO Primary Care Provider Active Kenyetta Dove MD Attending Provider Active Team Status: Inactive Member Role Status Dates Donya Billings , DO Primary Care Provider Active Javad Leach Attending Provider Active Team Status: Active Member Role Status Dates PHYSICIAN NO FAMILY Primary Care Provider Active Team Status: Inactive Member Role Status Dates Amanda Montiel MD Attending Provider Active PHYSICIAN NO FAMILY Primary Care Provider Active Team Status: Inactive Member Role Status Dates Donya Andriy Billings , DO Primary Care Provider Active Yogi Mcgraw , DO Emergency Provider Active Team Status: Inactive Member Role Status Dates PHYSICIAN NO FAMILY Primary Care Provider Active Josué Napier PA-C Emergency Provider Active Team Status: Active Member Role Status Dates Diony J Cromley II, DO Primary Care Provider Active Team Status: Inactive Member Role Status Dates Diony J Cromley II, DO Primary Care Provider Active Mariya Kumari , DO Emergency Provider Active Team Status: Inactive Member Role Status Dates Diony J Cromley II, DO Primary Care Provider Active Franklyn Madera MD Attending Provider Active Phillip Benjamin MD Other Provider Active Team Status: Inactive Member Role Status Dates Diony J Cromley II, DO Primary Care Provider Active Yogi Mcgraw , DO Emergency Provider Active Team Status: Inactive Member Role Status Dates Diony J Anastasiamley II, DO Primary Care Provider Active Kenyetta Dove MD Attending Provider Active Team Status: Inactive Member Role Status Dates Diony J Cromley II, DO Primary Care Provider, Other P rovider Active Radha Mcintosh CREDIT FRONT OFFICE DEVELOPER-C Attending Provider Active Team Status: Inactive Member Role Status Dates Diony J Anastasiamley II, DO Primary Care Provider Active Beny Alvarez MD Attending Provider Active Becky Aguirre , MAXIMILIANO CREDIT FRONT OFFICE DEVELOPER-C Other Provider Act cecelia Goals (unrecognized section and content) Goals may be documented in a n alternate section INFORMATION SOURCE (unrecogn ized section and content) DATE CREATED AUTHOR 10/04/2022 [facility] DATE CREATED AUTHOR AUTHOR'S ORGANIZ ATION 10/11/2022 [facility] DATE CREATED AUTHOR AUTHOR'S ORGANIZ ATION 11/27/2022 [facility] DATE CREATED AUTHOR AUTHOR'S ORGANIZ ATION 12/09/2022 [facility] DATE CREATED AUTHOR AUTHOR'S ORGANIZ ATION 12/09/2022 [employer] DATE CREATED AUTHOR AUTHOR'S ORGANIZ ATION 03/31/2023 [facility] DATE CREATED AUTHOR AUTHOR'S ORGANIZ ATION 05/12/2023 [facility] FOR RECORDS PERTAINING TO PATIENTS WHO ARE OR HAVE BEEN ENROLLED IN A CHEMICAL DEPENDENCY/SUBSTANCEABUSE PROGRAM, SOME INFORMATION MAY BE OMITTED. This clinical summary was aggregated from multiple sources. Caution should be exercised in using it in the provision of clinical care. This summary normalizes information from multiple sources, and as a consequence, information in this document may materially change the coding, format and clinical context of patient data. In addition, data may be omitted in some cases. CLINICAL DECISIONS SHOULD BE BASED ON THE PRIMARY CLINICAL RECORDS. [facility]. provides no warranty or guarantee of the accuracy or completeness of information in this document.
== END 2023-04-06 13:17 ==
LOC: PM 13:16
PROVIDERS: Visit Provider Nurse Practitioner
DX: M47.894 Other spondylosis, thoracic region (principal); M62.838 Other muscle spasm; Z79.891 Long term (current) use of opiate analgesic
CPT/HCPCS: G0463

== ENCOUNTER 2023-08-03 09:14 | Outpatient (OUT) | payer MEDICARE, MEDICAID, SELFPAY ==
--- OUTSIDE RECORDS SUMMARY | 2023-08-03 09:37 | XMS_ITS | CCD ---
Author Name Unknown Address [address] [place] [address] Organization [facility] Care Team Providers Care Building Coordinator Name Role Phone Donya Billings Primary Care Provider [phone] Oscar Reed Unavailable DO Donya Billings Primary Care Provider MARCELLUS Marr Attending Provider MD Phillip Benjamin Attending Provider DO Steve Coronel Emergency Provider Oliver Mario Unavailable Donya Billings Unavailable Unavailable Unavailable Unavailable Unavailable DO Donya Billings Primary Care Provider MD Phillip Benjamin Attending Provider DO Steve Coronel Emergency Provider MD Kenyetta Dove Attending Provider Unavailable Primary Care Provider Unavailabl DO Donya Mejia Primary Care Provider Javad Leach Attending Provider PROVIDER, UNKNOWN Admitting Unavailable PROVIDER, UNKNOWN Attending [...] BHAVNA Consulting Unavailable Awa, Dr. Donya Wray [facility] Benjamin, Dr. Koehler Attending Unavaila ble Awa, Dr. Donya Wray [facility] Reynamdprasanth Benjamin, Dr. Koehler Attending Unavaila ble Lavonne, Dr. Koehler Attending Unavaila ble Awa, Dr. Donya Wray [facility] Gaurav Benjamin, Dr. Koehler Referring Unavaila ble Lavonne, Dr. Koehler Referring Unavaila ble Awa, Dr. Donya Wray [facility] Gaurav Benjamin, Dr. Koehler Attending Unavaila ble Awa, Dr. Donya W[facility] Gaurav Benjamin, Dr. Koehler Referring Unavaila ble Awa, Dr. Donya W[facility] Gaurav Benjamin, Dr. Koehler Attending Unavaila ble Awa, Dr. Donya Wray [facility] Gaurav Benjamin, Dr. Koehler Attending Unavaila ble TrabDr. Phillip banerjee Referring Unavaila ble DO Donya Billings Primary Care Provider DO Yogi Mcgraw Emergency Provider Gaurav simeon [facility] [employer] [facility] [facility] Primary Care Provider Unava BHAVIN Dsouza Emergency Provider MD Amanda Montiel Attending Provider DO Diony Singh II Primary Care Provider DO Mariya Kumari Emergency Provider MD Franklyn Madera Attending Provider [phone] MD Phillip Benjamin Other Provider Beny Alvarez Unavailable DO Yogi Mcgraw Emergency Provider Unavai MD Kenyetta Tong Attending Provider [phone] DO Diony Singh II Other Provider [phone] MARCELLUS Mcintosh Attending Provider [facility] [employer] [facility] Primary Care Provider Unava MD Beny Cheng Attending Provider MAXIMILIANO Aguirre Other Provider STANG, Roula L Admitting Unavailable DELORISG, Roula L Attending Unavailable Diony Singh Referring Unavailable Williamson, Basebrandon GJaycee Attending Unavailable NONE, XXXX Referring Unavailable STANG, Roula L Admitting Unavailable CHRISTOPHE, Roula L Attending Unavailable Diony Singh Attending Unavailable Diony Singh Attending Unavailable BECKY AGUIRRE Attending Unavailchristy e Diony Singh Attending Unavailable Will, Astrit H Attending Unavailable Franklyn MADERA Attending Unavailable Franklyn MADERA Admitting Unavailable Diony Singh Referring Unavailable NONE, XXXX Referring Unavailable STANG, Roula L Admitting Unavailable STANG, Roula L Attending Unavailable Franklyn MADERA Attending Unavailable Franklyn MADERA Admitting Unavailable NONE, XXXX Referring Unavailable STANG, Roula L Admitting Unavailable NONE, XXXX Referring Unavailable STANG, Roula L Attending Unavailable Donya OZUNA Referring Unavailable Donya OZUNA Attending Unavailable Donya OZUNA Admitting Unavailable Donya BILLINGS Attending Unavailable Diony Singh Attending Unavailable TAVO HARRIS Attending Unavailable Donya BILLINGS Attending Unavailable Donya BILLINGS Attending Unavailable Jacqui OCONNOR Attending Unavailable AWA, Donya Ashraf Attending Unavailable Diony Singh Attending Unavailable Donya OZUNA Referring Unavailable ALLYSSA TREJO Attending Unavailable Donya OZUNA P Attending Unavailable STANG, Roula L Admitting Unavailable STANG, Roula L Referring Unavailable STANG, Roula L Attending Unavailable STANG, INTERNAL CONTROLS CONSULTANT Roula L Admitting Unavailable STANG, Roula L Attending Unavailable Awa , Donya S Unavailable [phone] [facility] Referring Unavaila ble [facility], [facility] Attending Unavaila ble [facility], [facility] Referring Unavaila ble [facility], [facility] Attending Unavaila ble James Roula Unavailable Samantha II, DO Diony Arias Primary Care Provider [phone] [facility], DO Jacqui Pimentel Emergency Provider Kenyetta Dove Attending Unavailable Kenyetta Dove Admitting Unavailable Donya Billings Primary Care Unavailable Javad Leach Attending Unavailable Javad Leach Admitting Unavailable Donya Billings Primary Care Unavailable Amanda Montiel Attending Unavailable Amanda Montiel Admitting Unavailable NO FAMILY, PHYSICIAN Primary Care Unavailable Anastasiamlrubin AVALOS, Diony Arias Admitting Unavailable Cromley II, Diony Arias Primary Care Unavailable Cromley BAILEY, Diony Arias Attending Unavailable Cromley BAILEY, Diony Arias Primary Care Unavailable Franklyn Madera Attending Unavailable Franklyn Madear Admitting Unavailable Phillip Benjamin Consulting Unavailable Kenyetta Dove Attending Unavailable Anastasiamlrubin AVALOS, Diony Arias Primary Care Unavailable Kenyetta Dove Admitting Unavailable Cromley II, Diony Arias Primary Care Unavailable Cromley BAILEY, Diony J Consulting Unavailable aRdha Mcintosh Attending Unavailable Radha Mcintosh Admitting Unavailable Cromley II, iDony Arias Primary Care Unavailable Becky Aguirre Consulting Unavail able Beny Alvarez Attending UnavailBeny Mahajan Admitting UnavailDiony Holbrook II Primary Care Unavailable Jacqui Samayoa Attending Unavailable Jacqui Samayoa Admitting Unavailable Magalys Carlos Attending Unavailable Magalys Carlos Admitting Unavailable Donya Billings Primary Care Unavailable Yogi Mcgraw Admitting Unavailable Yogi Mcgraw Attending Unavailable Donya Billings Primary Care Unavailable Josué Napier Attending Unavailable Josué Napier Admitting Unavailable NO FAMILY, PHYSICIAN Primary Care Unavailable Diony Singh II Primary Care Unavailable Mariya Kumari Attending Unavailable Mariya Kumari Admitting Unavailable Diony Singh II Primary Care Unavailable Yogi Mcgraw Attending Unavailable Yogi Mcgraw Admitting Unavailable Allergies Allergy Classification Reported Allergen(s) Allergy Type Date of Onset Reaction(s) Facility (1 source) Latex; Translations: [Latex] Propensity to adverse reactions (disorder) 7 [facility] Repository (1 source) venlafaxine; Translations: [Effexor] Drug Allergy [facility] Repository Medications Current Medications Medication Drug Class(es) Dates Sig (Normalized) Sig (Original) acetaminophen 500 mg oral tablet (12 sources) Start: 09-20-2022 take 1000 mg by mouth twice daily Acetaminophen Active 1000 MG PO Twice daily September 19, 2022 11:00pm Start: 09-20-2022 Acetaminophen (Tylenol Ex Str Rapid Release) 500 mg Tablet Active 1000 MG PO Twice daily September 20, 2022 12:00am Tylenol bid Acti ve [id number] actuat albuterol 0.09 mg/actuat metered dose inhaler (1 source) beta2-Adrenergic Agonist Start: 04-28-2022 take 2 puff(s) by inhalation every four hours as needed Albuterol Sulfate HFA 108 (90 Base) MCG/ACT 2 puffs as needed Inhalation every 4 hrs Mar, Active amoxicillin 875 mg oral tablet (1 source) Penicillin-class Antibacterial Start: 07-08-2023 take 1 tablet by mouth every twelve hours Amoxicillin 875 MG 1 tablet Orally Twice a day for 10 days Jun, Active Aspir-81 (4 sources) Aspir-81 Active aspirin 81 mg chewable tablet (2 sources) Platelet Aggregation Inhibitor, Nonsteroidal Anti-inflammatory Drug Start: 03-29-2023 take 81 mg by mouth once daily Aspirin Active 81 MG PO Daily March 28, 2023 11:00pm benzonatate 100 mg oral capsule (1 source) [...] tablet Orally Twice a day Active Calcium (12 sources) Phosphate Binder, Calcium CALCIUM ORAL Calcium + D Active 0 Active Calcium + D Acti ve calcium carbonate 1250 mg / cholecalciferol 200 unt oral tablet (5 sources) Vitamin D Start: 07-18-2018 take 1 tablet by mouth twice daily Calcium Carbonate-Vitamin D3 (Os-Nirmal 500 + D3) 500 mg(1,250mg) -200 unit tablet Active 1 TAB PO Twice daily July 18, 2018 1:00am fluconazole 100 mg oral tablet (4 sources) [...] Liothyronine Active 10 MCG PO Daily September 19, 2022 11:00pm takes 10mg daily Start: 11-26-2021 take 1 tablet by christopher th twice daily Liothyronine Sodium 5 MCG Oral Tablet take 1 tablet by mouth twice a day Quantity: 0 Refills: 0 Ordered: 14-Apr-2022 DO Start : 26-Nov-2021 Active take 1 tablet by christopher th every twenty-four hours Liothyronine Sodium 50 MCG 1 tablet on an empty stomach Orally Once a day Active take 1 tablet by christopher once daily liothyronine (CYTOMEL) 5 mcg tablet Take 5 mcg by mouth once daily. 0 Active take 1 tablet by christopher every twenty-four hours Liothyronine Sodium 50 MCG 1 tablet on an empty stomach Orally Once a day Active Comment on above: Take 5 mcg by mouth once daily. lubiprostone 0.008 mg oral capsule (18 sources) Chloride Channel Activator Start: take 1 capsule by mouth twice daily at mealtime Lubiprostone 8 MCG 1 capsule with food and water Orally Twice a day for 30 days May, Active Start: 09-20-2022 take 24 ug by mouth once daily Lubiprostone Active 24 MCG PO Daily September 19, 2022 11:00pm Start: 09-20-2022 take 24 ug by mouth once daily Lubiprostone Active 24 MCG PO Daily September 20, 2022 12:00am Start: 09-01-2022 take 1 capsule by [facility] twice daily at mealtime Lubiprostone 24 MCG 1 capsule with food and water Orally Twice a day for 30 days Aug, Active Start: 09-01-2022 take 1 capsule by mo [facility] twice daily at mealtime Lubiprostone 24 MCG 1 capsule with food and water Orally Twice a day for 30 days Aug, Active take 1 capsule by ma ut once daily at mealtime Amitiza 24 MCG 1 capsule with food and water Orally once a day Active Comment on above: Take 24 mcg by mouth twice daily with meals. Magnesium (13 sources) Start: 07-18-2018 take 400 mg by mouth twice daily Magnesium Active 400 MG PO Twice daily July 18, 2018 12:00am Start: 07-18-2018 take 400 mg by mouth twice syed ly Magnesium Active 400 MG PO Twice daily July 18, 2018 1:00am Start: 07-18-2018 take 200 mg by mouth twice syed ly Magnesium Active 200 MG PO Twice daily July 18, 2018 1:00am Start: 07-18-2018 take 200 mg by mouth twice syed ly Magnesium Active 200 MG PO Twice daily July 18, 2018 12:00am melatonin 10 mg oral tablet (18 sources) Start: 07-18-2018 take 10 mg by mouth once daily at bedtime Melatonin Active 10 MG PO Daily at bedtime July 18, 2018 12:00am Melatonin 10 MG as directed Orally Active Comment on above: Take by mouth. Multi For Her (8 sources) Multi For Her as directed Orally Active Multiple Vitamin (Multi Vitamin Daily) TABS (4 sources) Multiple Vitamin (Multi Vitamin Daily) TABS Take by mouth. 0 Active Multivitamin (Multiple Vitamins) Tablet (13 sources) Start: 07-18-2018 take 1 tablet by mouth once daily Multivitamin (Multiple Vitamins) Tablet Active 1 TAB PO Daily July 18, 2018 1:00am Start: 07-18-2018 take 1 tablet by christopher th once daily Multivitamin (Multiple Vitamins) Tablet Active 1 TAB PO Daily July 18, 2018 12:00am oseltamivir 75 mg oral capsule (1 source) Neuraminidase Inhibitor Start: 07-22-2023 take 1 capsule by mouth every twelve hours Oseltamivir (Tamiflu) 75 mg capsule Active 75 MG PO Q12H 10 5 July 22, 2023 12:00am polyethylene glycol 3350 71088 mg powder for oral solution (5 sources) Osmotic Laxative Start: 09-01-2022 take 17 g by mouth once daily Polyethylene Glycol 3350 17 GM/SCOOP 17gm Orally Once a day for 30 days please dispense largest quantity Aug, Active probiotic (1 source) probiotic Active propranolol hydrochloride 20 mg oral tablet (3 sources) beta-Adrenergic Shorty Start: 07-22-2023 take 20 mg by mouth twice daily Propranolol Active 20 MG PO Twice daily July 22, 2023 12:00am Start: 05-03-2023 take 1 tablet by christopher th twice daily as needed for anxiety propranolol (INDERAL) 20 mg tablet TAKE 1 TABLET BY MOUTH 2 TIMES A DAY NEEDED FOR ANXIETY 0 05/03/2023 Active take 1 tablet by christopher th every twenty-four hours Propranolol HCl 20 MG 1 tablet Orally Once a day Active Comment on above: TAKE 1 TABLET BY CHRISTOPHER TH 2 TIMES A DAY NEEDED FOR ANXIETY Trulance 3 MG (1 source) Start: 05-12-2022 take 1 tablet by mouth once daily Trulance 3 MG 1 tablet Orally Once a day for 90 days Apr, Active Turmeric extract (1 source) Turmeric Active Completed/Discontinued Medications Medication Drug Class(es) Dates Sig (Normalized) Sig (Original) acetaminophen 325 mg / HYDROcodone bitartrate 5 mg oral tablet (6 sources) Opioid Agonist Start: 03-29-2023 take 1 tablet by mouth twice daily as needed for pain HYDROcodone-aceta minophen (NORCO) 5-325 mg per tablet TAKE 1 TABLET BY MOUTH 2 TIMES A DAY NEEDED FOR PAIN 0 05/08/2023 Active Bruni Active Comment on above: TAKE 1 TABLET BY CHRISTOPHER TH 2 TIMES A DAY NEEDED FOR PAIN ALPRAZolam 0.5 mg oral tablet (20 sources) Benzodiazepine Start: 2 End: 3 take 0.5 mg by mouth once as needed Alprazolam Discontinued 0.5 MG PO As Directed September 19, 2022 11:00pm March 29, 2023 7:34am stated that she takes as needed, maybe once every couple of days. Start: 07-18-2018 End: 09-20-2022 take 0.5 mg by mouth once daily Alprazolam Discontinued 0.5 MG PO Daily July 18, 2018 12:00am September 20, 2022 6:22pm Start: 07-18-2018 take 1 mg by mouth once daily Alprazolam Active 1 MG PO Daily July 18, 2018 1:00am Xanax prn Not-Ta salomon/PRN Xanax prn Not-Ta salomon Xanax prn Active Xanax Active Comment on above: Take 1 mg by mouth a t bedtime as needed. amitriptyline hydrochloride 25 mg oral tablet (16 sources) Tricyclic Antidepressant Start: 04-11-20 18 End: 09-21-19 take 75 mg by mouth at bedtime Amitriptyline Discontinued 75 MG PO Bedtime April 11, 2018 12:00am September 20, 2022 6:23pm take 1 tablet by christopher th once daily at bedtime amitriptyline 25 mg tablet Take 25 mg by mouth daily at bedtime. 0 Active take 1 tablet by christopher th every twenty-four hours Amitriptyline HCl 75 MG 1 tablet at bedt neel Orally Once a day Active Comment on above: Take 25 mg by mouth daily at bedtime. ascorbic acid 1000 mg oral tablet (13 sources) Vitamin C Start: 07-18-2018 End: 09-20-2022 take 1 tablet by mouth once daily in the morning Ascorbic Acid (Vitamin C) (Vitamin C) 1,000 mg Tablet Discontinued 1000 MG PO Every morning July 18, 2018 12:00am September 20, 2022 6:23pm B Complex-Folic Acid 0.4 mg tab (1 source) B Complex-Folic Acid 0.4 mg tab Take by mouth. 0 Active Comment on above: Take by mouth. baclofen 10 mg oral tablet (20 sources) gamma-Aminobutyric Acid-ergic Agonist Start: 09-20-2022 End: 07-22-2023 take 10 mg by mouth once daily Baclofen Discontinued 10 MG PO Daily September 19, 2022 11:00pm July 22, 2023 10:38am Start: 09-23-2021 take 1 tablet by christopher th twice daily Baclofen 10 MG Oral Tablet TAKE 1 TABLET TWICE DAILY. Quantity: 0 Refills: 0 Ordered: 23-Sep-2021 DO Start : 23-Sep-2021 Active Start: 09-23-2021 take 1 tablet by christopher th once daily at bedtime Baclofen 20 MG Oral Tablet TAKE 1 TABLET BY MOUTH EVERYDAY AT BEDTIME Quantity: 90 Refills: 0 Ordered: 23-Sep-2021 DO Start : 23-Sep-2021 Active Baclofen Not-Eb ing/PRN Baclofen Active biotin 10 mg oral capsule (13 sources) Start: 07-18-2018 End: 09-20-2022 take 06342 ug by mouth once daily Biotin Discontinued 79735 MCG PO Daily July 18, 2018 12:00am September 20, 2022 6:23pm 24 hr buPROPion hydrochloride 300 mg extended release oral tablet (14 sources) Aminoketone Start: 10-21-2017 End: 09-20-2022 take 300 mg by mouth once daily in the morning Bupropion Hcl Discontinued 300 MG PO Every morning October 20, 2017 11:00pm September 20, 2022 6:23pm Comment on above: Take 300 mg by mouth once daily. Calcium Carbonate (5 sources) Oscal 500/200 D- 3 TABS TAKE 1 TABLET DAILY DIRECTED. Quantity: 0 Refills: 0 Ordered: 13-Oct-2022 DO Active Calcium Carbonate / vitamin D3 (1 source) CALCIUM CARBONATE/VITAMIN D3 (CALCIUM + D ORAL) Take by mouth. 0 Active Comment on above: Take by mouth. Calcium Carbonate-Vitamin D3 (Os-Nirmal 500 + D3) 500 mg(1,250mg) -200 unit tablet (8 sources) Start: 07-18-2018 End: 09-20-2022 take 1 tablet by mouth twice daily Calcium Carbonate-Vitamin D3 (Os-Nirmal 500 + D3) 500 mg(1,250mg) -200 unit tablet Discontinued 1 TAB PO Twice daily July 18, 2018 12:00am September 20, 2022 6:23pm Start: 07-18-2018 End: 09-20-2022 take 1 tablet by mouth twice daily Calcium Carbonate-Vitamin D3 (Os-Nirmal 500 + D3) 500 mg(1,250mg) -200 unit tablet Discontinued 1 TAB PO Twice daily July 18, 2018 1:00am September 20, 2022 7:23pm Calcium Carbonate-Vitamin D3 (VITAMIN D-3) 180-5,000 mg-unit tab (1 source) Calcium Carbonate-Vitamin D3 (VITAMIN D-3) 180-5,000 mg-unit tab Take by mouth. 0 Active Comment on above: Take by mouth. cholecalciferol 0.05 mg oral capsule (20 sources) Vitamin D Start: 023 take 1 capsule by mouth once Cholecalciferol, Vitamin D3, 50 mcg (2,000 unit) cap Take 1 capsule by mouth every afternoon. 0 02/19/2023 Active Start: 08-13-2022 Cholecalcifero l (vitamin D3) 50 MCG (2000 UT) CAPS capsule Take by mouth daily. 0 08/13/2022 Active Start: 07-18-2018 take 06622 [IU] by m outh every week Cholecalciferol (Vitamin D3) Active 80059 UNIT PO every week July 18, 2018 12:00am take 1 capsule by mo [facility] once daily Vitamin D3 1.25 MG (23794 UT) Oral Capsule TAKE 1 CAPSULE Daily Quantity: 0 Refills: 0 Ordered: 28-Jul-2022 DO Active Comment on above: Take 1 capsule by mo [facility] every afternoon. chondroitin sulfates 400 mg / glucosamine hydrochloride 500 mg oral tablet (1 source) take 1 tablet by mouth three times daily Glucosamine-Chondroi tin 500-400 mg tablet Take 1 tablet by mouth three times daily. 0 Active Comment on above: Take [facility] tablet [facility] daily. cloNIDine hydrochloride 0.1 mg oral tablet (8 sources) Central alpha-2 Adrenergic Agonist Start: 3 End: 3 take 0.1 mg by mouth once daily Clonidine Hcl Discontinued 0.1 MG PO Daily December 20, 2022 3:03pm March 29, 2023 7:37am CYANOCOBALAMIN/COBAMAM BREANNA (B12 SUBLINGUAL) (1 source) CYANOCOBALAMIN/C OBAM AMIDE (B12 SUBLINGUAL) Dissolve under the tongue. 0 Active Comment on above: Dissolve under the t ongue. 24 hr dilTIAZem hydrochloride 240 mg extended release oral capsule (7 sources) Calcium Channel Shorty Start: 3 take 1 capsule by mouth once dilTIAZem CD (CARDIZEM CD, CARTIA XT) 240 mg 24 hr capsule Take 1 capsule by mouth every afternoon. 0 04/25/2023 Active dilTIAZem HCl 24 0mg Active Comment on above: Take 1 capsule by [facility] every afternoon. doxycycline hyclate 100 mg oral capsule (4 sources) Tetracycline-class Drug Start: 3 take 1 capsule by mouth every twelve hours Doxycycline Hyclate 100 MG 1 capsule Orally Twice a day for 10 day(s) September, Not-Taking/PRN escitalopram 10 mg oral tablet (6 sources) Serotonin Reuptake Inhibitor Start: 3 take 1 tablet by mouth once escitalopram oxalate (LEXAPRO) 10 mg tablet Take 1 tablet by mouth every afternoon. 0 05/02/2023 Active Start: 03-29-2023 take 2 tablets by [facility] once daily Escitalopram Oxalate (Lexapro) 5 mg Tablet Active 10 MG PO Daily March 28, 2023 11:00pm Start: 03-29-2023 take 1 tablet by [facility] once daily Escitalopram Oxalate (Lexapro) 5 mg Tablet Active 5 MG PO Daily March 29, 2023 12:00am Comment on above: Take 1 tablet by [facility] every afternoon. estrogens, conjugated (chcf) 0.3 mg / medroxyPROGESTERone acetate 1.5 mg oral tablet (1 source) Progestin, Estrogen take 1 tablet by mouth once daily Conj Estrog-Medroxyproge st Tyrel 0.3-1.5 mg per tablet Take 1 tablet by mouth once daily. 0 Active Comment on above: Take 1 tablet by christopher th once daily. FE FUMARATE/CA CARB/VITAMIN D3 ([id number] FUMARATE ORAL) (1 source) FE FUMARATE/CA CARB/VITAMIN D3 ([id number] OUS FUMARATE ORAL) Take by mouth. 0 Active Comment on above: Take by mouth. FOLIC ACID, BULK, MISC (1 source) FOLIC ACID, BULK , MISC ibuprofen 800 mg oral tablet (13 sources) Nonsteroidal Anti-inflammatory Drug Start: 019 End: 023 take 800 mg by mouth every eight hours Ibuprofen Discontinued 800 MG PO Q8H December 14, 2018 11:00pm September 20, 2022 6:23pm lactobacillus acidophilus [id number] unt / pectin 10 mg oral capsule (1 source) acidophilus-pect in, citrus (ACIDOPHILUS PROBIOTIC) 100 million-10 cell-mg cap Take by mouth. 0 Active Comment on above: Take by mouth. levothyroxine sodium 0.112 mg oral tablet (20 sources) l-Thyroxine Start: 022 take 1 tablet by mouth once daily in the morning levothyroxine (SYNTHROID) 112 mcg tablet Take 1 tablet (112 mcg) by mouth daily in the morning on an empty stomach 0 04/30/2023 Active Start: 11-26-2021 take 1 tablet by christopher once daily in the morning Synthroid 125 MCG Oral Tablet TAKE 1 TABLET BY MOUTH DAILY IN THE MORNING ON AN EMPTY STOMACH Quantity: 90 Refills: 0 Ordered: 11-Mar-2022 DO Start : 26-Nov-2021 Active Start: 11-22-2018 take 112 ug by mouth once pk y Levothyroxine Active 112 MCG PO Daily November 21, 2018 11:00pm Start: 11-22-2018 take 137 ug by mouth once pk y Levothyroxine Active 137 MCG PO Daily November 22, 2018 12:00am Levothyroxine So dium 112 MCG Oral for 90 Days Active take 1 tablet by christopher once daily in the morning Synthroid 175 MCG 1 tablet in the morning on an empty stomach Orally Once a day Active Comment on above: Take 1 tablet (112 m cg) by mouth daily in the morning on an empty stomach magnesium oxide 400 mg oral tablet (16 sources) Start: 06-04-2022 magnesium oxide (MAG-OX) 400 mg (241.3 mg magnesium) tablet Take by mouth every 12 hours. 0 06/04/2022 Active Start: 06-04-2022 take 1 tablet by christopher th twice daily Magnesium Oxide 400 MG Oral Tablet TAKE 1 TABLET TWICE DAILY. Quantity: 180 Refills: 3 Ordered: 04-Jun-2022 Phillip Benjamin MD Start : 04-Jun-2022 Active Start: 06-04-2022 magnesium oxid e (MAG-OX) 400 MG tablet Take by mouth every 12 (twelve) hours. 0 06/04/2022 Active take 1 tablet by christopher th every twenty-four hours Magnesium Oxide 400 MG 1 tablet as needed Orally Once a day Active Comment on above: Take by mouth every 12 hours. Melatonin Maximum Strength TABS (7 sources) take 1 tablet by mouth at bedtime Melatonin Maximum Strength TABS TAKE 1 TABLET Bedtime Quantity: 0 Refills: 0 Ordered: 04-Jun-2022 DO Active meloxicam 15 mg oral tablet (13 sources) Nonsteroidal Anti-inflammatory Drug Start: 9 End: 9 take 15 mg by mouth once daily in the morning Meloxicam Discontinued 15 MG PO Every morning July 18, 2018 12:00am August 01, 2018 2:16pm metaxalone 800 mg oral tablet (1 source) take 1 tablet by mouth three times daily metaxalone 800 mg tablet Take 800 mg by mouth three times daily. 0 Active Comment on above: Take 800 mg by mouth three times daily. Methadone (1 source) Opioid Agonist METHADONE HCL (METHADONE ORAL) Take by mouth. 0 Active Comment on above: Take by mouth. methIMAzole 10 mg oral tablet (20 sources) Thyroid Hormone Synthesis Inhibitor Start: 9 End: 9 take 5 mg by mouth once Methimazole Discontinued 5 MG PO every Tuesday, , Tuesday, and Wednesday July 18, 2018 12:00am August 01, 2018 2:16pm Start: 10-21-2017 End: 08-01-2018 Methimazole (Tapazole) 5 mg Tablet Discontinued 10 MG PO every Tuesday, Tuesday, and Friday October 20, 2017 11:00pm August 01, 2018 2:16pm metoprolol tartrate 25 mg oral tablet (20 sources) beta-Adrenergic Shorty Start: 09-20-2022 End: 03-29-2023 take 25 mg by mouth once daily Metoprolol Tartrate Discontinued 25 MG PO Daily September 19, 2022 11:00pm March 29, 2023 7:37am Start: 06-04-2022 metoprolol (TO PROL-XL) 25 mg XL tablet Take by mouth. 0 06/04/2022 Active take [facility] tablet [facility] daily Metoprolol Succinate ER 50 MG Oral Tablet Extended Release 24 Hour TAKE 1 TABLET BY MOUTH EVERY DAY Quantity: 90 Refills: 3 Ordered: 08-Dec-2022 Lavonne PELAYO, Juni Active increase metroNIDAZOLE 0.01 mg/mg topical gel (1 source) Nitroimidazole Antimicrobial metroNIDAZOLE (METROGEL) 1 % gel Apply to affected area. 0 Active Comment on above: Apply to affected ar ea. Multi Vitamin Daily Oral Tablet (1 source) take 1 tablet by mouth once daily Multi Vitamin Daily Oral Tablet TAKE 1 TABLET DAILY. Quantity: 0 Refills: 0 Ordered: 28-Jul-2022 DO Active Multi Vitamin Daily TABS (5 sources) Multi Vitamin Da [place] TABS TAKE 1 TABLET DAILY. Quantity: 0 Refills: 0 Ordered: 28-Jul-2022 DO Active Multivitamin capsule (1 source) take 1 capsule by mouth once daily Multivitamin capsule Take 1 capsule by mouth once daily. 0 Active Comment on above: Take 1 capsule by [facility] once daily. mupirocin 0.02 mg/mg topical ointment (13 sources) RNA Synthetase Inhibitor Antibacterial Start: 12-03-19 End: 12-16-19 19 Mupirocin Discontinued 1 APPLIC TOPICAL Twice daily 15 December 01, 2018 11:00pm December 15, 2018 4:08pm omeprazole 20 mg delayed release oral capsule (13 sources) Proton Pump Inhibitor Start: 04-11-20 18 End: 08-02-19 19 take 1 tablet by mouth once daily Omeprazole Discontinued 1 TAB PO Daily April 11, 2018 12:00am August 01, 2018 2:16pm plecanatide 3 mg oral tablet (7 sources) Start: 05-12-20 take 1 tablet by mouth every twenty-four hours Trulance 3 MG 1 tablet Orally Once a day for 90 days Apr, Not-Taking/PRN predniSONE 10 mg oral tablet (3 sources) Start: 10-29-20 23 prednisone 10 mg 5 tablets for 2 days, 4 tablets x2 days, then 3 x2 days, 2 x2 days, 1 x2 days Orally as directed for 10 days Feb, Not-Taking/PRN PROGESTERONE, BULK, MISC (1 source) PROGESTERONE, BU LK, MISC sertraline 100 mg oral tablet (1 source) Serotonin Reuptake Inhibitor take 1 tablet by mouth once daily sertraline (ZOLOFT) 100 mg tablet Take 100 mg by mouth once daily. 0 Active Comment on above: Take 100 mg by mouth once daily. temazepam 30 mg oral capsule (20 sources) Benzodiazepine Start: 05-25-20 22 take 1 capsule by mouth once daily at bedtime as needed for sleep temazepam (RESTORIL) 30 mg cap TAKE 1 CAPSULE BY MOUTH ONCE A DAY (AT BEDTIME) NEEDED FOR SLEEP 30 DAY SUPPLY 0 07/27/2022 Active Start: 10-21-2017 End: 09-20-2022 take 2 capsules by mouth once daily at bedtime Temazepam (Restoril) 15 mg Capsule Discontinued 30 MG PO Daily at bedtime October 20, 2017 11:00pm September 20, 2022 6:24pm take 1 capsule by [facility] every twenty-four hours Restoril 15 MG 1 capsule at bedtime as needed Orally Once a day Not-Taking/PRN Temazepam 7.5 MG TAKE 3 CAPSULES BY MOUTH AT BEDTIME NEEDED FOR SLEEP FOR 1 WEEK, 2 CAPS AT BEDTIME FOR 1 WEEK, 1 CAP AT BEDTIME FOR 1 WEEK, 1 CAP AT BEDT Oral for 28 Days Not-Taking/PRN Comment on above: TAKE 1 CAPSULE BY [facility] ONCE A DAY (AT BEDTIME) NEEDED FOR SLEEP 30 DAY SUPPLY thyroid (chcf) 60 mg oral tablet (1 source) thyroid, pork, (ARMOUR THYROID) 60 mg tab Take by mouth. 0 Active Comment on above: Take by mouth. topiramate 50 mg oral tablet (1 source) take 1 tablet by mouth twice daily Topiramate (TOPAMAX) 50 mg tablet Take 50 mg by mouth twice daily. 0 Active Comment on above: Take 50 mg by mouth twice daily. traMADol hydrochloride 50 mg oral tablet (20 sources) Opioid Agonist Start: 3 End: 3 take 100 mg by mouth twice daily Tramadol Discontinued 100 MG PO Twice daily September 19, 2022 11:00pm March 29, 2023 7:37am Start: 08-12-2022 take 2 tablets by mo uth twice daily as needed tramadol (ULTRAM) 50 MG tablet Take 2 tablets by mouth 2 times per day as needed for Spondylosis without myelopathy 0 08/12/2022 Active Start: 10-23-2021 take 1 tablet by christopher th twice daily traMADol HCl - 100 MG Oral Tablet TAKE 1 TABLET BY MOUTH TWICE A DAY Quantity: 60 Refills: 0 Ordered: 23-Oct-2021 DO Start : 23-Oct-2021 Active take 1 tablet by christopher th every twenty-four hours traMADol HCl 50 MG 1 tablet as needed Orally Once a day Not-Taking/PRN triamcinolone acetonide 40 mg/ml injectable suspension (20 sources) Corticosteroid Start: 03-27-2023 Kenalog-40 Feb, 60 mg Start: 10-19-2018 Kenalog -40 mg September, 40 mg Start: 04-24-2018 Kenalog -40 mg Mar, 40 mg Start: 01-18-2018 Kenalog -40 mg Dec, 40 mg Start: 09-23-2016 Kenalog -40 mg Aug, [employer], Bulk, (VERSABASEA) crea (1 source) [employer], Bulk, (VERSABASEA) crea vit B-comp w-Fe,Ca,FA<1mg (IRON-VITAMINS ORAL) (1 source) vit B-comp w-Fe, Ca,FA Take by mouth. 0 Active Comment on above: Take by mouth. zolpidem tartrate 10 mg oral tablet (1 source) gamma-Aminobutyric Acid-ergic Agonist zolpidem (AMBIEN) 10 mg tab Take by mouth at bedtime as needed. 0 Active Comment on above: Take by mouth at bed time as needed. Problems Active Problems Problem Classification Problem Date Documented Da te Episodic/Chronic Anxiety disorders (8 sources) Anxiety; Translations: [Anxiety state, unspecified] Onset: 3 Chronic Blindness and vision defects (14 sources) Diplopia; Translations: [Diplopia] Episodic Cardiac dysrhythmias (16 sources) Multiple premature ventricular complexes; Translations: [Other premature beats] Onset: 3 Chronic Complications of surgical procedures or medical care (1 source) Postprocedural hypothyroidism; Translations: [Postprocedural hypothyroidism] Onset: 3 Chronic Complications of surgical procedures or medical care (13 sources) Wound dehiscence; Translations: [Disruption of external operation (surgical) wound, not elsewhere classified, initial encounter] 12-02-2018 Episodic Essential hypertension (13 sources) Hypertensive disorder; Translations: [Essential (primary) hypertension] 12-28-2022 Chronic Gastritis and duodenitis (8 sources) Gastritis; Translations: [Unspecified chronic gastritis without bleeding] Chronic Gastrointestinal hemorrhage (1 source) Melena Episodic Headache; including migraine (7 sources) Headache; Translations: [Headache] 12-30-2022 Episodic Headache; including migraine (1 source) Headache; including migraine; Translations: [Headache, unspecified] Onset: 3 Hypertension with complications and secondary hypertension (7 sources) Hypertensive urgency ; Translations: [Hypertensive urgency] 12-30-2022 Chronic Immunizations and screening for infectious disease (1 source) Other specified abnormal immunological findings in serum; Translations: [Positive WILL (antinuclear antibody)] Onset: 3 Episodic Influenza (1 source) Influenza; Translations: [Influenza due to unidentified influenza virus with other respiratory manifestations] 07-22-2023 Episodic Mood disorders (2 sources) Depressive disorder; Translations: [Depression] 01-18-2014 Chronic Nervous system congenital anomalies (7 sources) Congenital anomaly of optic nerve; 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, spinal cord, 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 Nonmalignant breast conditions (8 sources) Large breast; Translations: [Hypertrophy of breast] Episodic Nutritional deficiencies (3 sources) Vitamin D deficiency; Translations: [Unspecified vitamin D deficiency] Chronic Open wounds of extremities (13 sources) Cat bite - wound; Translations: [Open bite of unspecified finger without damage to nail, initial encounter] 12-02-2018 Episodic Osteoarthritis (18 sources) Arthritis; Translations: [Osteoarthritis of hip] 01-18-2014 Chronic Other connective tissue disease (2 sources) Fibromyalgia; Translations: [Fibromyalgia] 01-18-2014 Episodic Other connective tissue disease (7 sources) H/O: arthritis; Translations: [Personal history of arthritis] Episodic Other connective tissue disease (7 sources) H/O: musculoskeletal disease; Translations: [Personal history of other musculoskeletal disorders] Episodic Other connective tissue disease (5 sources) Pain in calf; Translations: [Pain in unspecified lower leg] 01-24-2023 Episodic Other eye disorders (7 sources) Hypertropia of right eye; Translations: [Hypertropia] Episodic Other eye disorders (5 sources) Pain in eye; Translations: [Ocular pain, unspecified eye] 01-24-2023 Episodic Other gastrointestinal disorders (2 sources) Irritable bowel syndrome; Translations: [Irritable bowel syndrome without diarrhea] 01-18-2014 Chronic Other gastrointestinal disorders (7 sources) Irritable bowel syndrome characterized by constipation; Translations: [Irritable bowel syndrome with constipation] Chronic Other gastrointestinal disorders (2 sources) Irritable bowel syndrome with constipation Chronic Other gastrointestinal disorders (8 sources) Constipation - functional; Translations: [Other constipation] Episodic Other gastrointestinal disorders (8 sources) Swollen abdomen; Translations: [Abdominal distension (gaseous)] Episodic Other gastrointestinal disorders (7 sources) History of gastritis; Translations: [Personal history of other diseases of digestive system] Episodic Other gastrointestinal disorders (4 sources) Constipation; Translations: [Constipation, unspecified] Episodic Other gastrointestinal disorders (1 source) Abdominal distension (gaseous) Episodic Other gastrointestinal disorders (1 source) Constipation, unspecified Episodic Other lower respiratory disease (10 sources) Dyspnea; Translations: [Shortness of breath] 01-24-2023 Episodic Other nervous system disorders (7 sources) Benign intracranial hypertension; Translations: [Benign intracranial hypertension] Chronic Other nervous system disorders (1 source) Other chronic pain; Translations: [OTHER CHRONIC PAIN] Onset: 2 Chronic Other non-traumatic joint disorders (13 sources) Shoulder pain; Translations: [Pain in unspecified shoulder] 11-19-2019 Episodic Other nutritional; endocrine; and metabolic disorders (7 sources) Body mass index 40+ - severely obese; Translations: [Morbid obesity] Chronic Other nutritional; endocrine; and metabolic disorders (1 source) Obesity, unspecified; Translations: [OBESITY UNSPECIFIED] Onset: 2 Chronic Other nutritional; endocrine; and metabolic disorders (8 sources) Hypomagnesemia; Translations: [Hypomagnesemia] 12-20-2022 Chronic Other nutritional; endocrine; and metabolic disorders (7 sources) History of Graves' disease; Translations: [Personal history of other endocrine, metabolic, and immunity disorders] Episodic Other skin disorders (1 source) Rash and other nonspecific skin eruption Episodic Other upper respiratory infections (3 sources) Acute pharyngitis, unspecified; Translations: [Streptococcal pharyngitis] Episodic Phlebitis; thrombophlebitis and thromboembolism (13 sources) Phlebitis; Translations: [Phlebitis and thrombophlebitis of unspecified site] 12-15-2018 Episodic Residual codes; unclassified (10 sources) Chronic pain; Translations: [Other chronic pain] Onset: 4 01-18-2014 Chronic Residual codes; unclassified (13 sources) Peripheral edema; Translations: [Edema, unspecified] 11-19-2019 Episodic Screening and history of mental health and substance abuse codes (14 sources) Ex-smoker; Translations: [Personal history of tobacco use] Episodic Comment on above: quit 01/28/22; Spondylosis; intervertebral disc disorders; other back problems (20 sources) Solitary sacroiliitis; Translations: [Sacroiliitis, not elsewhere classified] Onset: 2 Chronic Sprains and strains (16 sources) Sprain of knee; Translations: [Sprain of unspecified site of right knee, initial encounter] Episodic Thyroid disorders (10 sources) Hypothyroidism; Translations: [Unspecified acquired hypothyroidism] Onset: 3 01-18-2014 Chronic Unclassified (1 source) LOW BACK PAIN, UNSPECIFIED; Translations: [LOW BACK PAIN, UNSPECIFIED] Onset: 2 Unclassified (1 source) Encounter for screening mammogram for malignant neoplasm of breast; Translations: [Encounter for screening mammogram for malignant neoplasm of breast] Onset: 3 Past or Other Problems Problem Classification Problem Date Documented Da te Episodic/Chronic Abdominal pain (20 sources) Left upper quadrant pain; Translations: [Left upper quadrant pain] Onset: 03-29-2023 06-21-2022 Episodic Cardiac dysrhythmias (20 sources) Palpitations; Translations: [Palpitations] Onset: 11-25-2022 12-20-2022 Episodic Conditions associated with dizziness or vertigo (9 sources) Lightheadedness; Translations: [Dizziness and giddiness] Onset: 09-20-2022 12-20-2022 Episodic Nonspecific chest pain (20 sources) Chest pain; Translations: [Chest pain, unspecified] Onset: 11-05-2022 11-05-2022 Episodic Other aftercare (1 source) Other mcc (current) drug therapy; Translations: [Other mcc (current) drug therapy] Onset: 03-17-2023 Episodic Other connective tissue disease (4 sources) Other muscle spasm; Translations: [OTHER MUSCLE SPASM] Onset: 01-06-2022 Episodic Residual codes; unclassified (1 source) Family history of malignant neoplasm of breast; Translations: [Family history of malignant neoplasm of breast] Onset: 12-29-2022 Episodic Spondylosis; intervertebral disc disorders; other back problems (19 sources) Neck pain; Translations: [Backache] Onset: 12-10-2021 01-18-2014 Episodic Unclassified (2 sources) Cough R05.9 Viral infection (2 sources) COVID-19 Results Test Name Value Interpretation Reference Range Facil ity Ferritinon 07-28-2023 Ferritin [Mass/Vol] 180.6 ng/mL Normal 11.0-306.8 [facility] Comment on above: Performed By: #### F E, B12, LILLIANA, MG, FOL, [id number], TSH3 wRFLX ####[address] [place] [address] [facility] Folateon 07-28-2023 Folate 43.0 ng/mL Normal >5.9 [facility] Comment on above: Result Comment: Janel te reference range: >5.9 ng/ml The WHO technical consultation on folate and vitamin b12 deficiencies has determined that folate concentrations less than 4 ng/ml are considered deficient. Performed By: #### F E, B12, LILLIANA, MG, FOL, [id number], TSH3 wRFLX ####[facility] [id number] [place] [address] [facility] Ironon 07-28-2023 Iron [Mass/Vol] 100 ug/dL Normal 50-212 [facility] Comment on above: Performed By: #### F E, B12, LILLIANA, MG, FOL, [id number], TSH3 wRFLX ####[facility] [place] [address] [facility] Magnesiumon 07-28-2023 Magnesium [Mass/Vol] 2.0 mg/dL Normal 1.9-2.7 [facility] Comment on above: Performed By: #### F E, B12, LILLIANA, MG, FOL, [id number], TSH3 wRFLX ####[facility] [id number] [place] [address] [facility] Thyroid Stim Hormone w/Rflxo n 07-28-2023 Thyroid Stim Hormone w/Rflx 1.20 u[iU]/mL Normal 0.45-5.33 [facility] Comment on above: Performed By: #### F E, B12, LILLIANA, MG, FOL, [id number], TSH3 wRFLX ####[address] [place] [address] [facility] Vitamin B12on 07-28-2023 Cobalamin (Vitamin B12) [Mass/Vol] 432 pg/mL Normal 180-914 [facility] Comment on above: Performed By: #### F E, B12, LILLIANA, MG, FOL, [id number], TSH3 wRFLX ####[address] [place] [address] [facility] Vitamin D 25 Hydroxy Totalon 07-28-2023 Vitamin D 25 Hydroxy Total 32.9 ng/mL Normal 30-100 [facility] Comment on above: Result Comment: QASIM MIN D STATUS 25(OH)VITAMIN D RANGE (ng/mL) Deficient <20 Insufficient 20 to <30 Sufficient 30 to 100 Reference: Kirby MF,Adonay NC, Shantelle HOLLOWAY, et al. Evaluation,treatment, and prevention of vitamin D deficiency; an Endocrine Society clinical practice guideline. JCEM. 2010; 96(7):1911-30. PERFORMED BY: [facility] [address] [place] [place] [address] PATHOLOGIST COMMUNICATION SPECIALIST WENDY CLARK M.D. Performed By: #### F E, B12, LILLIANA, MG, FOL, [id number], TSH3 wRFLX ####[address] [place] [address] [facility] Activated partial thrombopla stin time (aPTT) in platelet poor plasma by coagulation aOrdered By: Jacqui Samayoa on 07-22-2023 aPTT Coag (PPP) [Time] 29.6 s 25.1-36.5 [facility] Comment on above: A hematocrit value g reater than 55% may lead to inaccurate results in coagulation testing. Patients having hematocrit values >55% require a special collection tube for coagulation studies. Please contact the laboratory at [phone] for redraw instructions. B-Type Natriuretic Peptideon 07-22-2023 Natriuretic peptide B (Bld) [Mass/Vol] 67.0 pg/mL Normal 5-100 [facility] Comment on above: Result Comment: PERF ORMED BY: [place] [address] PATHOLOGIST COMMUNICATION SPECIALIST WENDY CLARK M.D. Performed By: #### F OL, B12, HSCRP, ESR #### [address] #### WILL CHOICE, RA, LYME AB wRFX, SPE #### [facility] , Basic Metabolic Panelon 07-01 Anion gap [Moles/Vol] 12.5 mmol/L Normal 6.0-15.0 [facility] Comment on above: Performed By: #### F OL, B12, HSCRP, ESR #### [address] #### WILL CHOICE, RA, LYME AB wRFX, SPE #### [facility] , Calcium [Mass/Vol] 8.7 mg/dL Normal 8.6-10.3 [facility] Comment on above: Performed By: #### F OL, B12, HSCRP, ESR #### [place] [address] [place] #### WILL CHOICE, RA, LYME AB wRFX, SPE #### [facility] , Chloride [Moles/Vol] 104 mmol/L Normal 98-107 [facility] Comment on above: Performed By: #### F OL, B12, HSCRP, ESR #### [place] [address] [place] #### WILL CHOICE, RA, LYME AB wRFX, SPE #### [facility] , CO2 [Moles/Vol] 24.1 mmol/L Normal 21.0-31.0 [facility] Comment on above: Performed By: #### F OL, B12, HSCRP, ESR #### [facility] [address] [place] [address] #### WILL CHOICE, RA, LYME AB wRFX, SPE #### [facility] , Creatinine [Mass/Vol] 0.52 mg/dL Low 0.60-1.20 [facility] Comment on above: Performed By: #### F OL, B12, HSCRP, ESR #### [address] #### WILL CHOICE, RA, LYME AB wRFX, SPE #### [facility] , Creatinine Clr Calc Pharmacy 184.90 [facility] Comment on above: Result Comment: PERF ORMED BY: [place] [address] PATHOLOGIST COMMUNICATION SPECIALIST WENDY CLARK M.D. Performed By: #### F OL, B12, HSCRP, ESR #### [address] #### WILL CHOICE, RA, LYME AB wRFX, SPE #### [facility] , GFR/1.73 sq M.predicted MDRD (S/P/Bld) [Vol rate/Area] mL/min/{1.73_m2} [facility] Comment on above: Performed By: #### F OL, B12, HSCRP, ESR #### [facility] [address] [place] [address] [place] #### WILL CHOICE, RA, LYME AB wRFX, SPE #### [facility] , Glucose [Mass/Vol] 97 mg/dL Normal 70-100 [facility] Comment on above: Result Comment: [place] Glucose Reference Range is dependent on time and content of last meal. Glucose of more than 200 mg/dL in a nonstressed, ambulatory subject supports the diagnosis of Diabetes Mellitus. ADA recommended reference range Performed By: #### F OL, B12, HSCRP, ESR #### [facility] [address] [place] [address] [place] #### WILL CHOICE, RA, LYME AB wRFX, SPE #### [facility] , Potassium [Moles/Vol] 3.6 mmol/L Normal 3.5-5.1 [facility] Comment on above: Performed By: #### F OL, B12, HSCRP, ESR #### [facility] [address] [place] [address] [place] #### WILL CHOICE, RA, LYME AB wRFX, SPE #### [facility] , Sodium [Moles/Vol] 137 mmol/L Normal 136-145 [facility] Comment on above: Performed By: #### F OL, B12, HSCRP, ESR #### [facility] [address] [place] [address] [place] #### WILL CHOICE, RA, LYME AB wRFX, SPE #### [facility] , Urea nitrogen [Mass/Vol] 6 mg/dL Low 7-25 [facility] Comment on above: Performed By: #### F OL, B12, HSCRP, ESR #### [facility] [address] [place] [address] [place] #### WILL CHOICE, RA, LYME AB wRFX, SPE #### [facility] , Basophils Auto (Bld) [#/Vol] Ordered By: Jacqui Samayoa on 07-22-2023 Basophils (Bld) [#/Vol] 0.1 10*3/uL 0.0-0.2 [facility] Basophils/100 WBC Auto (Bld) Ordered By: Jacqui Samayoa on 07-22-2023 Basophils/100 WBC (Bld) 0.5 % . [facility] Blood Cultureon 07-22-2023 Bacteria identified Cx Nom (Bld) NO GROWTH 5 DAYS PERFORMED BY: [facility] [address] [facility] [place] [id number] PATHOLOGIST COMMUNICATION SPECIALIST WENDY CLARK M.D. [facility] Comment on above: Performed By: #### C UBLD, LACTIC ####[facility] [id number] [id number] [facility] Bacteria identified Cx Nom (Bld) NO GROWTH 5 DAYS PERFORMED BY: [facility] [address] [facility] [place] [address] PATHOLOGIST COMMUNICATION SPECIALIST WENDY CLARK M.D. [facility] Comment on above: Performed By: #### C UBLD, LACTIC ####[address] [place] [id number] [facility] COVID CepheidOrdered By: Iris Samayoa on 07-22-2023 SARS-CoV-2 (COVID-19) Ab IA Ql Negative Negative [facility] Comment on above: This is a duplicate Cepheid Xpert Xpress CoV-2/Flu/RSV Plus RNA by RT-PCR result to be used for statistical tracking purpose only. SARS-CoV-2 (COVID-19) RNA CESAR+probe Ql (Unsp spec) [facility] COVID-19 / Flu A/B / RSV PCR on 07-22-2023 SARS-CoV-2 (COVID-19) RNA CESAR+probe Ql (Unsp spec) COVID-19 Cepheid Result Negative for SARS-CoV-2 RNA by RT-PCR Flu A Cepheid Result Positive for Flu A RNA by RT-PCR Flu B Cepheid Result Negative for Flu B RNA by RT-PCR RSV Cepheid Result Negative for RSV RNA by RT-PCR COVID19 Blank Space Reference: Negative COVID19 Blank Space Cepheid Disclaimer The Cepheid Xpert Xpress CoV-2/Flu/RSV Plus has Cepheid Disclaimer not been FDA cleared or approved; this test has Cepheid Disclaimer been authorized by FDA under an EUA for use by Cepheid Disclaimer authorized laboratories; this test has been Cepheid Disclaimer authorized only for the simultaneous qualitative Cepheid Disclaimer detection and differentiation of nucleic acids from Cepheid Disclaimer SARS-CoV-2, influenza A, influenza B, and Cepheid Disclaimer respiratory syncytial virus (RSV), and not for any Cepheid Disclaimer other viruses or pathogens; and this test is only Cepheid Disclaimer authorized for the duration of the declaration that Cepheid Disclaimer circumstances exist justifying the authorization of Cepheid Disclaimer emergency use of in vitro diagnostic tests for Cepheid Disclaimer detection and/or diagnosis of COVID-19 under Cepheid Disclaimer Section 564(b)(1) of the Act, 21 U.S.C. 360bbb- Cepheid Disclaimer 3(b)(1), unless the authorization is terminated or Cepheid Disclaimer revoked sooner. PERFORMED BY: [place] [address] PATHOLOGIST COMMUNICATION SPECIALIST WENDY CLARK M.D. [facility] Comment on above: Performed By: #### F OL, B12, HSCRP, ESR #### [place] [address] [place] #### WILL CHOICE, RA, LYME AB wRFX, SPE #### [facility] , Calcium [Mass/volume] in Ser um or PlasmaOrdered By: Jacqui Samayoa on 07-22-2023 Calcium [Mass/Vol] 8.7 mg/dL 8.6-10.3 [facility] Carbon dioxide, total [Moles /volume] in Serum or PlasmaOrdered By: Jacqui Samayoa on 07-22-2023 CO2 [Moles/Vol] 24.1 mmol/L 21.0-31.0 [facility] Cepheid COVID PCR Negativeon 07-22-2023 SARS-CoV-2 (COVID-19) RNA CESAR+probe Ql (Unsp spec) Negative Normal Negative [facility] Comment on above: Result Comment: This is a duplicate Cepheid Xpert Xpress CoV-2/Flu/RSV Plus RNA by RT-PCR result to be used for statistical tracking purpose only. PERFORMED BY: [place] [address] PATHOLOGIST COMMUNICATION SPECIALIST WENDY CLARK M.D. Performed By: #### C OVID19 FLU RSV, CEPHEID NEG ####[place] [address] Chloride [Moles/volume] in S zakia or PlasmaOrdered By: Jacqui Samayoa on 07-22-2023 Chloride [Moles/Vol] 104 mmol/L 98-107 [facility] [facility] Complete Blood Count Auto Di ffon 07-22-2023 Basophils (Bld) [#/Vol] 0.1 10*3/uL Normal 0.0-0.2 [facility] Comment on above: Result Comment: PERF ORMED BY: [place] [address] PATHOLOGIST COMMUNICATION SPECIALIST WENDY CLARK M.D. Performed By: #### F OL, B12, HSCRP, ESR #### [facility] [address] [place] [address] [place] #### WILL CHOICE, RA, LYME AB wRFX, SPE #### [facility] , Basophils/100 WBC (Bld) 0.5 % Normal . [facility] Comment on above: Performed By: #### F OL, B12, HSCRP, ESR #### [facility] [address] [place] [address] [place] #### WILL CHOICE, RA, LYME AB wRFX, SPE #### [facility] , Eosinophils (Bld) [#/Vol] 0.0 10*3/uL Normal 0.0-0.45 [facility] Comment on above: Performed By: #### F OL, B12, HSCRP, ESR #### [facility] [address] [place] [address] [place] #### WILL CHOICE, RA, LYME AB wRFX, SPE #### [facility] , Eosinophils/100 WBC (Bld) 0.3 % Normal . [facility] Comment on above: Performed By: #### F OL, B12, HSCRP, ESR #### [address] #### WILL CHOICE, RA, LYME AB wRFX, SPE #### [facility] , Erythrocyte distribution width (RBC) [Ratio] 14.9 % Normal 11.9-15.3 [facility] Comment on above: Performed By: #### F OL, B12, HSCRP, ESR #### [address] #### WILL CHOICE, RA, LYME AB wRFX, SPE #### [facility] , Hematocrit (Bld) [Volume fraction] 41.0 % Normal 34.0-46.4 [facility] Comment on above: Performed By: #### F OL, B12, HSCRP, ESR #### [address] #### WILL CHOICE, RA, LYME AB wRFX, SPE #### [facility] , Hemoglobin (Bld) [Mass/Vol] 13.8 g/dL Normal 11.8-15.4 [facility] Comment on above: Performed By: #### F OL, B12, HSCRP, ESR #### [place] [address] [place] #### WILL CHOICE, RA, LYME AB wRFX, SPE #### [facility] , Lymphocytes (Bld) [#/Vol] 0.9 10*3/uL Low 1.00-4.8 [facility] Comment on above: Performed By: #### F OL, B12, HSCRP, ESR #### [place] [address] [place] #### WILL CHOICE, RA, LYME AB wRFX, SPE #### [facility] , Lymphocytes/100 WBC (Bld) 8.7 % Normal . [facility] Comment on above: Performed By: #### F OL, B12, HSCRP, ESR #### [address] #### WILL CHOICE, RA, LYME AB wRFX, SPE #### [facility] , MCH (RBC) [Entitic mass] 29.7 pg Normal 24.7-34.3 [facility] Comment on above: Performed By: #### F OL, B12, HSCRP, ESR #### [place] [address] [place] #### WILL CHOICE, RA, LYME AB wRFX, SPE #### [facility] , MCV (RBC) [Entitic vol] 88.2 fL Normal 80-100 [facility] Comment on above: Performed By: #### F OL, B12, HSCRP, ESR #### [address] #### WILL CHOICE, RA, LYME AB wRFX, SPE #### [facility] , Mean Corpuscular HGB Conc 33.7 g/dL Normal 32.0-35.0 [facility] Comment on above: Performed By: #### F OL, B12, HSCRP, ESR #### [place] [address] [place] #### WILL CHOICE, RA, LYME AB wRFX, SPE #### [facility] , Monocytes (Bld) [#/Vol] 0.6 10*3/uL Normal 0.0-0.8 [facility] Comment on above: Performed By: #### F OL, B12, HSCRP, ESR #### [place] [address] [place] #### WILL CHOICE, RA, LYME AB wRFX, SPE #### [facility] , Monocytes/100 WBC (Bld) 27.10 % High 0.00-20.00 [facility] Comment on above: Result Comment: For adults in ED, MDW > 20.0 may be associated with a higher risk of sepsis during the first 12 hrs of hospital admission Performed By: #### F OL, B12, HSCRP, ESR #### [address] #### WILL CHOICE, RA, LYME AB wRFX, SPE #### [facility] , Monocytes/100 WBC (Bld) 6.2 % Normal . [facility] Comment on above: Performed By: #### F OL, B12, HSCRP, ESR #### [address] #### WILL CHOICE, RA, LYME AB wRFX, SPE #### [facility] , Neutrophils (Bld) [#/Vol] 8.3 10*3/uL High 1.8-7.7 [facility] Comment on above: Performed By: #### F OL, B12, HSCRP, ESR #### [address] #### WILL CHOICE, RA, LYME AB wRFX, SPE #### [facility] , Neutrophils/100 WBC (Bld) 84.3 % Normal . [facility] Comment on above: Performed By: #### F OL, B12, HSCRP, ESR #### [place] [address] [place] #### WILL CHOICE, RA, LYME AB wRFX, SPE #### [facility] , NRBC% 0.0 /100{WBC} Normal 0-0.5 [facility] Comment on above: Performed By: #### F OL, B12, HSCRP, ESR #### [place] [address] [place] #### WILL CHOICE, RA, LYME AB wRFX, SPE #### [facility] , Platelet mean volume (Bld) [Entitic vol] 7.7 fL Normal 6.3-10.7 [facility] Comment on above: Performed By: #### F OL, B12, HSCRP, ESR #### [facility] [address] [place] [address] #### WILL CHOICE, RA, LYME AB wRFX, SPE #### [facility] , Platelets (Bld) [#/Vol] 347 10*3/uL Normal 150-450 [facility] Comment on above: Performed By: #### F OL, B12, HSCRP, ESR #### [address] #### WILL CHOICE, RA, LYME AB wRFX, SPE #### [facility] , RBC (Bld) [#/Vol] 4.64 10*6/uL Normal 3.60-5.00 [facility] Comment on above: Performed By: #### F OL, B12, HSCRP, ESR #### [address] #### WILL CHOICE, RA, LYME AB wRFX, SPE #### [facility] , WBC (Bld) [#/Vol] 9.9 10*3/uL Normal 3.8-11.6 [facility] Comment on above: Performed By: #### F OL, B12, HSCRP, ESR #### [facility] [address] [place] [address] [place] #### WILL CHOICE, RA, LYME AB wRFX, SPE #### [facility] , Creatine Kinaseon 07-22-2023 CK [Catalytic activity/Vol] 37 U/L Normal 30-223 [facility] Comment on above: Performed By: #### F OL, B12, HSCRP, ESR #### [facility] [address] [place] [address] [place] #### WILL CHOICE, RA, LYME AB wRFX, SPE #### [facility] , Creatine kinase [Enzymatic a ctivity/volume] in Serum or PlasmaOrdered By: Jacqui Samayoa on 07-22-2023 CK [Catalytic activity/Vol] 37 U/L 30-223 [facility] Creatinine [Mass/volume] in Serum or PlasmaOrdered By: Jacqui Samayoa on 07-22-2023 Creatinine [Mass/Vol] 0.52 mg/dL 0.60-1.20 [facility] ECG 12 lead ECGon 07-22-2023 ECG 12 lead ECG [facility] [place] [address] Electrocardiograph Report Signed Patient: Lupe Pickard MR#: [id number] : 1975 Acct:[id number] Age/Sex: 48 / F ADM Date: 07/22/23 Loc: ER Room: Type: [facility] ER Attending Dr: Ordering Provider: Jacqui Samayoa DO Date of Service: 07/22/23 ECG/ECG 12 lead ECG: Upper Respiratory Infection Copies to: Test Reason : Blood Pressure : / mmHG Vent. Rate : 089 BPM Atrial Rate : 089 BPM P-R Int : 134 ms QRS Dur : 072 ms QT Int : 360 ms P-R-T Axes : 036 -13 006 degrees QTc Int : 438 ms Sinus rhythm with premature supraventricular complexes and fusion complexes Otherwise normal ECG When compared with ECG of 24-JAN-2023 10:00, fusion complexes are now present premature supraventricular complexes are now present Confirmed by JACQUI SAMAYOA DO ([id number]) on 07/22/2023 2:52:38 PM Referred By: Electronically Signed By:JACQUI SAMAYOA DO Transcribed By: MUS Signed By Jacqui Samayoa DO [id number] Normal [facility] Eosinophils Auto (Bld) [#/Vo l]Ordered By: Jacqui Samayoa on 07-22-2023 Eosinophils (Bld) [#/Vol] 0.0 10*3/uL 0.0-0.45 [facility] Eosinophils/100 WBC Auto (Bl d)Ordered By: Jacqui Samayoa on 07-22-2023 Eosinophils/100 WBC (Bld) 0.3 % . [facility] Erythrocyte distribution wid th Auto (RBC) [Ratio]Ordered By: Jacqui Samayoa on 07-22-2023 Erythrocyte distribution width (RBC) [Ratio] 14.9 % 11.9-15.3 [facility] Glucose [Mass/volume] in Ser um or PlasmaOrdered By: Jacqui Samayoa on 07-22-2023 Glucose [Mass/Vol] 97 mg/dL 70-100 [facility] Comment on above: ADA recommended refe rence rangeRandom Glucose Reference Range is dependent on time and content of last meal. Glucose of more than 200 mg/dL in a nonstressed, ambulatory subject supports the diagnosis of Diabetes Mellitus. Hematocrit Auto (Bld) [Volum e fraction]Ordered By: Jacqui Samayoa on 07-22-2023 Hematocrit (Bld) [Volume fraction] 41.0 % 34.0-46.4 [facility] Hemoglobin [Mass/volume] in BloodOrdered By: Jacqui Samayoa on 07-22-2023 Hemoglobin (Bld) [Mass/Vol] 13.8 g/dL 11.8-15.4 [facility] INR in Platelet poor plasma by Coagulation assayOrdered By: Jacqui Samayoa on 07-22-2023 INR Coag (PPP) [Relative time] 1.0 {INR} [facility] Comment on above: INR Therapeutic Rang [...] with mechanical heart valves: 3 - 4.5 Lactate [Moles/volume] in Se rum or PlasmaOrdered By: Jacqui Samayoa on 07-22-2023 Lactate [Moles/Vol] 1.3 mmol/L 0.5-2.2 [facility] Lactic Acidon 07-22-2023 Lactate [Moles/Vol] 1.3 mmol/L Normal 0.5-2.2 [facility] Comment on above: Result Comment: PERF ORMED BY: [facility] [address] [place] [address] PATHOLOGIST COMMUNICATION SPECIALIST WENDY CLARK M.D. Performed By: #### C UBLD, LACTIC ####[facility] [address] [place] [id number] [facility] Leukocytes [#/volume] correc emily for nucleated erythrocytes in Blood by Automated counOrdered By: Jacqui Samayoa on 07-22-2023 WBC corrected for nucl RBC Auto (Bld) [#/Vol] 9.9 10*3/uL 3.8-11.6 [facility] Lymphocytes Auto (Bld) [#/Vo l]Ordered By: Jacqui Samayoa on 07-22-2023 Lymphocytes (Bld) [#/Vol] 0.9 10*3/uL 1.00-4.8 [facility] Lymphocytes/100 WBC Auto (Bl d)Ordered By: Jacqui Samayoa on 07-22-2023 Lymphocytes/100 WBC (Bld) 8.7 % . [facility] MCH Auto (RBC) [Entitic mass ]Ordered By: Jacqui Samayoa on 07-22-2023 MCH (RBC) [Entitic mass] 29.7 pg 24.7-34.3 [facility] MCHC Auto (RBC) [Mass/Vol]Or dered By: Jacqui Samayoa on 07-22-2023 MCHC (RBC) [Mass/Vol] 33.7 g/dL 32.0-35.0 [facility] MCV Auto (RBC) [Entitic vol] Ordered By: Jacqui Samayoa on 07-22-2023 MCV (RBC) [Entitic vol] 88.2 fL 80-100 [facility] Monocyte distribution width [Entitic volume] in Blood by AutomatedOrdered By: Jacqui Samayoa on 07-22-2023 Monocyte distribution width Auto (Bld) [Entitic vol] 27.10 % 0.00-20.00 [facility] Comment on above: For adults in ED, MD W > 20.0 may be associated with a higher risk of sepsis during the first 12 hrs of hospital admission Monocytes Auto (Bld) [#/Vol] Ordered By: Jacqui Samayoa on 07-22-2023 Monocytes (Bld) [#/Vol] 0.6 10*3/uL 0.0-0.8 [facility] Monocytes/100 WBC Auto (Bld) Ordered By: Jacqui Samayoa on 07-22-2023 Monocytes/100 WBC (Bld) 6.2 % . [facility] Natriuretic peptide B [Mass/ Vol]Ordered By: Jacqui Samayoa on 07-22-2023 Natriuretic peptide B (Bld) [Mass/Vol] 67.0 pg/mL 5-100 [facility] Neutrophils Auto (Bld) [#/Vo l]Ordered By: Jacqui Samayoa on 07-22-2023 Neutrophils (Bld) [#/Vol] 8.3 10*3/uL 1.8-7.7 [facility] Neutrophils/100 WBC Auto (Bl d)Ordered By: Jacqui Samayoa on 07-22-2023 Neutrophils/100 WBC (Bld) 84.3 % . [facility] No Panel InformationOrdered By: Jacqui Samayoa on 07-22-2023 Estimated GFR (CKD-EPI) > 60.0 mL/Min [facility] Creatinine Clearance (Chem 184.90 [facility] Nucleated erythrocytes [Pres ence] in Blood by Automated countOrdered By: Jacqui Samayoa on 07-22-2023 Nucleated RBC Auto Ql (Bld) 0.0 /100{WBC} 0-0.5 [facility] Partial Thromboplastin Timeo n 07-22-2023 aPTT Coag (Bld) [Time] 29.6 s Normal 25.1-36.5 [facility] Comment on above: Result Comment: A he matocrit value greater than 55% may lead to inaccurate results in coagulation testing. Patients having hematocrit values >55% require a special collection tube for coagulation studies. Please contact the laboratory at [phone] for redraw instructions. PERFORMED BY: [place] [address] PATHOLOGIST COMMUNICATION SPECIALIST WENDY CLARK M.D. Performed By: #### F OL, B12, HSCRP, ESR #### [place] [address] [place] #### WILL CHOICE, RA, LYME AB wRFX, SPE #### [facility] , Platelet mean volume Auto (B ld) [Entitic vol]Ordered By: Jacqui Samayoa on 07-22-2023 Platelet mean volume (Bld) [Entitic vol] 7.7 fL 6.3-10.7 [facility] Platelets Auto (Bld) [#/Vol] Ordered By: Jacqui Samayoa on 07-22-2023 Platelets (Bld) [#/Vol] 347 10*3/uL 150-450 [facility] Potassium [Moles/volume] in Serum or PlasmaOrdered By: Jacqui Samayoa on 07-22-2023 Potassium [Moles/Vol] 3.6 mmol/L 3.5-5.1 [facility] Prothrombin Time INRon 07-22 INR Coag (PPP) [Relative time] 1.0 {INR} Normal [facility] Comment on above: Result Comment: INR [...] valves: 3 - 4.5 Performed By: #### F OL, B12, HSCRP, ESR #### [facility] [address] [place] [address] [place] #### WILL CHOICE, RA, LYME AB wRFX, SPE #### [facility] , PT Coag (PPP) [Time] 11.6 s Normal 9.0-12.9 [facility] Comment on above: Result Comment: A he matocrit value greater than 55% may lead to inaccurate results in coagulation testing. Patients having hematocrit values >55% require a special collection tube for coagulation studies. Please contact the laboratory at [phone] for redraw instructions. Performed By: #### F OL, B12, HSCRP, ESR #### [facility] [address] [place] [address] [place] #### WILL CHOICE, RA, LYME AB wRFX, SPE #### [facility] , Prothrombin time (PT)Ordered By: Jacqui Samayoa on 07-22-2023 PT Coag (PPP) [Time] 11.6 s 9.0-12.9 [facility] Comment on above: A hematocrit value g reater than 55% may lead to inaccurate results in coagulation testing. Patients having hematocrit values >55% require a special collection tube for coagulation studies. Please contact the laboratory at [phone] for redraw instructions. RBC Auto (Bld) [#/Vol]Ordere d By: Jacqui Samayoa on 07-22-2023 RBC (Bld) [#/Vol] 4.64 10*6/uL 3.60-5.00 [facility] Serum or plasma anion gap de terminationOrdered By: Jacqui Samayoa on 07-22-2023 Anion gap [Moles/Vol] 12.5 mmol/L 6.0-15.0 [facility] Sodium [Moles/volume] in Ser um or PlasmaOrdered By: Jacqui Samayoa on 07-22-2023 Sodium [Moles/Vol] 137 mmol/L 136-145 [facility] Troponin I High Sensitivityo n 07-22-2023 Troponin I High Sensitivity < 2.3 Normal 0.0-15.0 [facility] Comment on above: Result Comment: PERF ORMED BY: [place] [address] PATHOLOGIST COMMUNICATION SPECIALIST WENDY CLARK M.D. Performed By: #### F OL, B12, HSCRP, ESR #### [place] [address] [place] #### WILL CHOICE, RA, LYME AB wRFX, SPE #### [facility] , Troponin I.cardiac [Mass/vol ume] in Serum or Plasma by Detection limit <= 0.01 ng/Ordered By: Jacqui Samayoa on 07-22-2023 Troponin I.cardiac DL <= 0.01 ng/mL [Mass/Vol] < 2.3 pg/mL 0.0-15.0 [facility] Urea nitrogen [Mass/volume] in Serum or PlasmaOrdered By: Jacqui Samayoa on 07-22-2023 Urea nitrogen [Mass/Vol] 6 mg/dL 7-25 [facility] WBC Auto (Bld) [#/Vol]Ordere d By: Jacqui Samayoa on 07-22-2023 WBC (Bld) [#/Vol] 9.9 10*3/uL 3.8-11.6 [facility] XR chest 2V*on 07-22-2023 XR chest 2V* [facility] [place] [address] XRay Report Signed Patient: Lupe Pickard MR#: [id number] : 1975 Acct:[id number] Age/Sex: 48 / F ADM Date: 07/22/23 Loc: ER Room: Type: [facility] ER Attending Dr: Copies to: Jacqui Samayoa DO Ordering Provider: Jacqui Samayoa DO Date of Service: 07/22/23 XR/XR chest 2V*: Upper Respiratory Infection XR chest 2V* 07/22/2023 8:24 AM SIGNS AND SYMPTOMS: Body aches, fever, chest tightness, cough shortness of breath PROTOCOL: Frontal and lateral radiograph of the chest COMPARISON: The 2022 FINDINGS: The trachea is midline. The heart and mediastinal structures are within normal limits. The lung parenchyma is clear. The bony thorax is intact. There is a dextro convex curvature of the thoracic spine. Degenerative changes are noted in the thoracic spine. XR/XR chest 2V* IMPRESSION: No acute cardiopulmonary pathology. Impression dictated by: Ernie Roper M.D.07/22/2023 8:46 AM Dictation Location: [place] [address] Transcribed By: [facility] 07/22/2346 Dictated By: Ernie Roper II, MD 07/22/2344 Signed By: 07/22/2346 Normal [facility] Lo 07-08-2023 MARLYNN Telephone (RHEUMN) LUPE PICKARD ([id number]) 1975 F Date Time Provider Department 07/08/23 STEPHIE BRAMBILA During your visit today, we recorded the following information about you: Stephie Brambila MD 07/08/2023 11:08 AM Signed Called patient patient to discuss lab results. MARCIO panel, dsDNA, C3, C4 were normal. No major abnormalities with other labs. At this time, no signs of rheumatologic autoimmune disease. Discussed Dermatology evaluation for rash and hair loss. Stephie Brambila MD Allergies As of Date: 07/08/2023 (No Known Allergies) Date Reviewed: 05/17/2023 Reviewed by: Tracy Reyes LPN - Fully Assessed Prescriptions as of 07/08/2023 - levothyroxine (SYNTHROID) 112 mcg tablet Take 1 tablet (112 mcg) by mouth daily in the morning on an empty stomach - Cholecalciferol, Vitamin D3, 50 mcg (2,000 unit) cap Take 1 capsule by mouth every afternoon. - dilTIAZem CD (CARDIZEM CD, CARTIA XT) 240 mg 24 hr capsule Take 1 capsule by mouth every afternoon. - escitalopram oxalate (LEXAPRO) 10 mg tablet Take 1 tablet by mouth every afternoon. - HYDROcodone-acetamin ophen (NORCO) 5-325 mg per tablet TAKE 1 TABLET BY MOUTH 2 TIMES A DAY NEEDED FOR PAIN - magnesium oxide (MAG-OX) 400 mg (241.3 mg magnesium) tablet Take by mouth every 12 hours. - propranolol (INDERAL) 20 mg tablet TAKE 1 TABLET BY MOUTH 2 TIMES A DAY NEEDED FOR ANXIETY - temazepam (RESTORIL) 30 mg cap TAKE 1 CAPSULE BY MOUTH ONCE A DAY (AT BEDTIME) NEEDED FOR SLEEP 30 DAY SUPPLY - vit B-comp w-Fe,Ca,FA<1mg (IRON-VITAMINS ORAL) Take by mouth. - melatonin 10 mg tab Take by mouth. - Glucosamine-Chondroi tin 500-400 mg tablet Take 1 tablet by mouth three times daily. - FE FUMARATE/CA CARB/VITAMIN D3 (CCSJWOW-PMMJ2-GFTJO US FUMARATE ORAL) Take by mouth. - Multivitamin capsule Take 1 capsule by mouth once daily. - B Complex-Folic Acid 0.4 mg tab Take by mouth. - acidophilus-pectin, citrus (ACIDOPHILUS PROBIOTIC) 100 million-10 cell-mg cap Take by mouth. - thyroid, pork, (ARMOUR THYROID) 60 mg tab Take by mouth. - METHADONE HCL (METHADONE ORAL) Take by mouth. - sertraline (ZOLOFT) 100 mg tablet Take 100 mg by mouth once daily. - Topiramate (TOPAMAX) 50 mg tablet Take 50 mg by mouth twice daily. - zolpidem (AMBIEN) 10 mg tab Take by mouth at bedtime as needed. - buPROPion XL (WELLBUTRIN XL) 300 mg 24 hr tablet Take 300 mg by mouth once daily. - Calcium Carbonate-Vitamin D3 (VITAMIN D-3) 180-5,000 mg-unit tab Take by mouth. - Vehicle Base No.24, Bulk, (VERSABASEA) crea - PROGESTERONE, BULK, MISC - Conj Estrog-Medroxyproges t Tyrel 0.3-1.5 mg per tablet Take 1 tablet by mouth once daily. - FOLIC ACID, BULK, MISC - metaxalone 800 mg tablet Take 800 mg by mouth three times daily. - CALCIUM CARBONATE/VITAMIN D3 (CALCIUM + D ORAL) Take by mouth. - CYANOCOBALAMIN/COBAM AMIDE (B12 SUBLINGUAL) Dissolve under the tongue. - ALPRAZolam 1 mg tablet Take 1 mg by mouth at bedtime as needed. - amitriptyline 25 mg tablet Take 25 mg by mouth daily at bedtime. - metroNIDAZOLE (METROGEL) 1 % gel Apply to affected area. - lubiprostone (AMITIZA) 24 mcg capsule Take 24 mcg by mouth twice daily with meals. - liothyronine (CYTOMEL) 5 mcg tablet Take 5 mcg by mouth once daily. Problem List As Of Date 07/08/2023 Noted Resolved Depression [F32.A] Arthritis [M19.90] Fibromyalgia [M79.7] Neck pain [M54.2] Back pain [M54.9] Hypothyroid [E03.9] Irritable bowel syndrome [K58.9] Chronic pain [G89.29] 01/18/2014 Encounter Status:Closed [facility] Other Quick Strepon 07-08-2023 S. pyogenes Org specific cx Ql (Throat) Positive Dydra Other Quick Strep Dydra Other Family Medicine Office/Clini c Noteon 07-01-2023 Family Medicine Office/Clinic Note Chief Complaint OMT HPI Staff Lupe Pickard 48 presents today for neck and back and medications complaints of _Patient here today to F/U Neck and back pain ,asking about Tumeric and probiotoic Pain characteristics: Pain location:neck/ back Intensity:10/06 Onset:years Medication used:norco Opioids prescribed:[facility] handles Medication agreement UTD: _ Urine drug screen performed:_ History of Present Illness 48 Years old Female here to f/u for NECK PAIN Social: The patient is in a long-term relationship with Katie; more than ten years The patient is not currently working; 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 The patient reports SOME improvement of symptoms after OMT. Today, the patient reports their symptoms are PRESENT and is requesting OMT again. Based on their report of symptoms and my exam findings, I believe OMT is appropriate today. The patient expresses consent for manipulation today. Today, the patient describes neck tightness NECK pain is 3-5 out of 10 Described as SHARP on the right The patient describes no radiation down the arms Interval history: saw rheumatology through [facility] describes nocturia the other night, 5-6 times a night has been getting botx into her bladder For years the most recent procedure wasn't as beneficial at her last f/u appt, they talked about medications deferred for now previously, botox would last a year this last time lasted 2-3 months has been on thyroid medication since thyroidectomy for 4-5 years thyroid medication is managed by Endocrinology - Dr. Dove for now she didn't tolerate the higher dose of bupropion she woke up feeling swollen after a few days on the higher dose May-message Refill request for bupropion 300 May 10, 2023-last appointment here Back pain 4 out of 10 described as a constant ache; Tylenol twice daily and Bruni twice daily with inconsistent benefit. Still interested in stopping Bruni at some time. Is interested in medical marijuana. 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 Hypothyroidism-recen t TSH was suppressed; he is not worried about this From last note: (tag) Review of Systems PHQ Score Initial Depression Screen Score: 0 SCORE Physical Exam Vitals & Measurements HR: 55(Peripheral) BP: 132/90 SpO2: 99% HT: 66 in HT: 167 cm WT: 124.8 kg WT: 274.56 lb BMI: 44.75 PHYSICAL EXAM Constitutional: Vital signs reviewed; LUPE PICKARD is well nourished, no acute distress Lungs: Clear to auscultation, non-labored respiration - expansion is symmetric Heart: Normal rate and rhythm, normal peripheral perfusion MSK: Thoracic paraspinal muscles are tight/tender bilaterally; worse on the right Cervical AROM: Rotation is normal bilaterally Flexion is normal Extension is somewhat restricted Side bending is normal bilaterally Skin: Warm, dry Neurologic: Awake, alert and oriented Psychiatric: Cooperative, appropriate mood and affect, judgement is appropriate Procedure Osteopathic Manipulation Head: OA dysfunction - treated with BLT and FPR - with objective and subjective improvement Cervical Spine: Reduced range of motion, tenderness at the insertion of the middle scalene on rib 1 on RIGHT - treated with BLT and FPR - with objective and subjective improvement Thoracic Spine: Chronic and acute tissue texture changes of the trapezius, rhomboid on the RIGHT - treated with myofascial, BLT and FPR - with objective and subjective improvement Assessment/Plan 1. Chronic neck pain (M54.2: Cervicalgia) Acute on Chronic NO recent trauma There are no neurologic symptoms or signs that raise concern for cord compression no - lower extremity weakness no - gait or coordination difficulties no - bladder or bowel dysfunction no - Lhermitte?s sign (electric or shock-like sensations that run down the back and/or limbs upon flexion or the neck) *if positive, cervical spondylotic myelopathy other potential causes: infection, malignancy, multiple sclerosis ? next step URGENT MRI NO OTHER obvious red flag signs Pain, sensory abnormalities, and/or weakness in upper extremities and/or positive provocative maneuvers? Yes ? probable cervical radicu (more content not included)... Normal [facility] Comment on above: Result Comment: Elec tronically Signed By: Diony Singh DO\.br\Date and Time Signed: 07/01/23 19:12 EST Ambulatory Visit Summaryon 0 06-28-2023 Ambulatory Visit Summary LUPE PICKARD :1975 Visit Date:06/28/2023 Ambulatory Visit Instructions Your Diagnosis Chronic neck pain Trapezius muscle spasm Fibromyalgia Degenerative disc disease, thoracic BMI 40.0-44.9, adult, Adult BMI 40.0-44.9 kg/sq m Morbid obesity Moderate recurrent major depression Spasm of lumbar paraspinous muscle Somatic dysfunction of head region Somatic dysfunction of cervical region Somatic dysfunction of thoracic region Somatic dysfunction of lumbar region Somatic dysfunction of sacral spine Somatic dysfunction of lower extremities Other specified hypothyroidism Palpitations Post-surgical hypothyroidism Other chronic pain Your Care Team Attending Physician - Diony Singh DO Primary Care Physician - Diony Singh DO This Is Your Medications List Contact prescribing physician if questions or concerns acetaminophen (Tylenol) acetaminophen-hydroc odone (Bruni 5/325 Tab) aspirin (aspirin 81 mg oral capsule) calcium-vitamin D (calcium (as carbonate)-vitamin D 500 mg-200 intl units oral tablet) cholecalciferol (D3) diltiazem (diltiazem CD 240 mg/24 hours Cap-ER) escitalopram (escitalopram 10 mg Tab) ferrous sulfate hydrOXYzine (hydrOXYzine pamoate 25 mg Cap) hydrocortisone topical (hydrocortisone butyrate topical 0.1% cream) levothyroxine (Synthroid 112 mcg Tab) liothyronine (liothyronine 5 mcg Tab) lubiprostone (lubiprostone 24 mcg Cap) magnesium oxide melatonin multivitamin (Multi Vitamin+) propranolol (propranolol 20 mg Tab) Procedures Performed Injection of therapeutic [...] cervix, Thyroidectomy. Discharge Vitals Heart Rate (Peripheral) 55 Blood Pressure 132/90 Height 66 in Height 167 cm Weight 274.56 lb Weight 124.8 kg BMI 44.75 What to do next Scheduled Follow-Up Appointments Tuesday 1:15 PM EST With: Franklyn MADERA MD Where: [facility] Tuesday 1:00 PM EST With: Diony Singh DO Where: [facility] [place] Normal [address] [place] [address]-\.br\ Medications\.br\ What How Much When Why Instructions\.br\ Unchanged acetaminophen (Tylenol) Contact prescribing physician if questions or concerns \.br\ Unchanged acetaminophen-hyd rocodone (Bruni 5/ 325 Tab) 2 Tablets Contact prescribing physician if questions or concerns \.br\ Unchanged aspirin (aspirin 81 mg oral capsule) Contact prescribing physician if questions or concerns \.br\ Unchanged calcium-vitamin D (calcium (as carbonate)-vitami n D 500 mg-200 intl units oral tablet) 1 Tablets By Mouth 2 times a day Contact prescribing physician if questions or concerns \.br\ Unchanged cholecalciferol (D3) Contact prescribing physician if questions or concerns \.br\ Unchanged diltiazem (diltiazem CD 240 mg/ 24 hours Cap-ER) 1 Capsules By Mouth Every day Contact prescribing physician if questions or concerns \.br\ Unchanged escitalopram (escitalopram 10 mg Tab) 1 Tablets Contact prescribing physician if questions or concerns \.br\ Unchanged ferrous sulfate Contact prescribing physician if questions or concerns \.br\ Unchanged hydrocortisone topical (hydrocortisone butyrate topical 0.1% cream) 1 Application Topical 2 times a day Atopic dermatitis Contact prescribing physician if questions or concerns \.br\ Unchanged hydrOXYzine (hydrOXYzine pamoate 25 mg Cap) Contact prescribing physician if questions or concerns \.br\ Unchanged levothyroxine (Synthroid 112 mcg Tab) 1 Tablets By Mouth Every day Hypothyroidism managed by endocrinology Contact prescribing physician if questions or concerns \.br\ Unchanged liothyronine (liothyronine 5 mcg Tab) 2 Tablets Contact prescribing physician if questions or concerns \.br\ Unchanged lubiprostone (lubiprostone 24 mcg Cap) 1 Capsules By Mouth 2 times a day Contact prescribing physician if questions or concerns \.br\ Unchanged magnesium oxide 400 Milligram By Mouth 2 times a day Contact prescribing physician if questions or concerns \.br\ Unchanged melatonin 10 Milligram By Mouth Once a day (at bedtime) Contact prescribing physician if questions or concerns \.br\ Unchanged multivitamin (Multi Vitamin+) Contact prescribing physician if questions or concerns \.br\ Unchanged propranolol (propranolol 20 mg Tab) 1 Tablets By Mouth 2 times a day Contact prescribing physician if questions or concerns \.br\ Allergies\.br\ Effexor (Dreams)\.br\ Problems\.br\ Ongoing - Any problem that you are currently receiving treatment for.\.br\ Abdominal weakness\.br\ Anxiety\.br\ Atopic dermatitis\.br\ Autoimmune disorder\.br\ BMI 40.0-44.9, adult\.br\ Butterfly rash\.br\ Chronic bilateral low back pain\.br\ Chronic insomnia\.br\ Chronic neck pain\.br\ Degenerative disc disease, thoracic\.br\ Diffuse arthralgia\.br\ Exercise counseling\.br\ Fibromyalgia\.br\ GERD (gastroesophageal reflux disease)\.br\ Medication management\.br\ Moderate recurrent major depression\.br\ Morbid obesity\.br\ Nutritional counseling\.br\ Other specified hypothyroidism\.b r\ Overactive bladder\.br\ Palpitations\.br\ Panic attack\.br\ Post-surgical hypothyroidism\.b r\ Rib pain on left side\.br\ Smoker\.br\ Somatic dysfunction of abdominal region\.br\ Somatic dysfunction of cervical region\.br\ Somatic dysfunction of head region\.br\ Somatic dysfunction of lower extremities\.br\ Somatic dysfunction of lumbar region\.br\ Somatic dysfunction of rib cage region\.br\ Somatic dysfunction of sacral spine\.br\ Somatic dysfunction of thoracic region\.br\ Spasm of lumbar paraspinous muscle\.br\ Symptomatic PVCs\.br\ Trapezius muscle spasm\.br\ Vitamin D deficiency\.br\ Historical - Any problem that you are no longer receiving treatment for.\.br\ Hypervitaminosis D\.br\ Smoker\.br\ Patient Survey\.br\ You may receive a survey via text or e-mail asking about your office visit. Please share your experience with us by completing your survey. We appreciate your feedback and thank you for choosing us for your care.\.br\ Education Materials\.br\ Heat Therapy\.br\ Heat therapy can help ease sore, stiff, injured, and tight muscles and joints.\.br\ Heat relaxes your muscles. This may help ease your pain and muscle spasms.\.br\ What are the risks?\.br\ If you have any of the following conditions, do not use heat therapy unless your doctor says it is okay. These conditions include:\.br\ ? \.br\ New bruises.\.br\ ? \.br\ Open wounds.\.br\ ? \.br\ Any of these in the area being treated:\.br\ ? \.br\ Healing wounds.\.br\ ? \.br\ Infected skin.\.br\ ? \.br\ Scarred skin.\.br\ ? \.br\ Problems with how blood moves through your body (circulation).\.b r\ ? \.br\ Loss of feeling (numbness) in the part of your body that is being treated.\.br\ ? \.br\ Unusual swelling of the part of the body that is being treated.\.br\ ? \.br\ Blood clots.\.br\ ? \.br\ Diabetes.\.br\ ? \.br\ Heart disease.\.br\ ? \.br\ Cancer.\.br\ ? \.br\ Not being able to communicate pain. This may include young children and people who have problems with their brain function (dementia).\.br\ How to use heat therapy\.br\ \.br\ There are different kinds of heat therapy. These include:\.br\ ? \.br\ Moist heat pack.\.br\ ? \.br\ Hot water bottle.\.br\ ? \.br\ Electric heating pad.\.br\ ? \.br\ Heated gel pack.\.br\ ? \.br\ Heated wrap.\.br\ ? \.br\ Warm water bath.\.br\ Your doctor will tell you how to use heat therapy. In general, you should:\.br\ 1. \.br\ Place a towel between your skin and the heat source.\.br\ 2. \.br\ Leave the heat on for 20?30 minutes. Your skin may turn pink.\.br\ 3. \.br\ Take off the heat if your skin turns bright red. This is very important. If you cannot feel pain, heat, or cold, you have a greater risk of getting burned.\.br\ Your doctor may also tell you to take a warm water bath. To do this:\.br\ 1. \.br\ Put a non-slip pad in the bathtub to prevent a fall.\.br\ 2. \.br\ Fill the bathtub with warm water.\.br\ 3. \.br\ Check the water temperature.\.br\ 4. \.br\ Soak in the water for 15?20 minutes, or as told by your doctor.\.br\ 5. \.br\ Be careful when you stand up after the bath. You may feel dizzy.\.br\ 6. \.br\ Pat yourself dry after the bath. Do not rub your skin to dry it.\.br\ General recommendations for heat therapy\.br\ ? \.br\ Be careful not to burn your skin when using heat therapy. High heat or using heat for a long time can cause alfredo.\.br\ ? \.br\ Do not sleep while using heat therapy. Only use heat therapy while you are awake.\.br\ ? \.br\ Check your skin during heat therapy.\.br\ ? \.br\ Do not use heat therapy if you have a new injury, especially if you have swelling on the injured area.\.br\ ? \.br\ Do not use heat therapy on areas of your skin that are already irritated, such as with a rash or sunburn.\.br\ ? \.br\ Do not use heat therapy if your skin turns bright red.\.br\ Contact a doctor if:\.br\ ? \.br\ You have blisters, redness, swelling, or loss of feeling in the area where you use heat therapy.\.br\ ? \.br\ You have new pain.\.br\ ? \.br\ You have pain that gets worse.\.br\ Summary\.br\ ? \.br\ Heat therapy is the use of heat to help ease sore, stiff, injured, and tight muscles and joints.\.br\ ? \.br\ There are different types of heat therapy. Your doctor will tell you which one to use.\.br\ ? \.br\ [facility] Patient Educationon 06-28-19 Patient Education Physical Medicine and Rehabilitation Heat Therapy Heat therapy can help ease sore, stiff, injured, and tight muscles and joints. Heat relaxes your muscles. This may help ease your pain and muscle spasms. What are the risks? If you have any of the following conditions, do not use heat therapy unless your doctor says it is okay. These conditions include: ? New bruises. ? Open wounds. ? Any of these in the area being treated: ? Healing wounds. ? Infected skin. ? Scarred skin. ? Problems with how blood moves through your body (circulation). ? Loss of feeling (numbness) in the part of your body that is being treated. ? Unusual swelling of the part of the body that is being treated. ? Blood clots. ? Diabetes. ? Heart disease. ? Cancer. ? Not being able to communicate pain. This may include young children and people who have problems with their brain function (dementia). How to use heat therapy There are different kinds of heat therapy. These include: ? Moist heat pack. ? Hot water bottle. ? Electric heating pad. ? Heated gel pack. ? Heated wrap. ? Warm water bath. Your doctor will tell you how to use heat therapy. In general, you should: 1. Place a towel between your skin and the heat source. 2. Leave the heat on for 20?30 minutes. Your skin may turn pink. 3. Take off the heat if your skin turns bright red. This is very important. If you cannot feel pain, heat, or cold, you have a greater risk of getting burned. Your doctor may also tell you to take a warm water bath. To do this: 1. Put a non-slip pad in the bathtub to prevent a fall. 2. Fill the bathtub with warm water. 3. Check the water temperature. 4. Soak in the water for 15?20 minutes, or as told by your doctor. 5. Be careful when you stand up after the bath. You may feel dizzy. 6. Pat yourself dry after the bath. Do not rub your skin to dry it. General recommendations for heat therapy ? Be careful not to burn your skin when using heat therapy. High heat or using heat for a long time can cause alfredo. ? Do not sleep while using heat therapy. Only use heat therapy while you are awake. ? Check your skin during heat therapy. ? Do not use heat therapy if you have a new injury, especially if you have swelling on the injured area. ? Do not use heat therapy on areas of your skin that are already irritated, such as with a rash or sunburn. ? Do not use heat therapy if your skin turns bright red. Contact a doctor if: ? You have blisters, redness, swelling, or loss of feeling in the area where you use heat therapy. ? You have new pain. ? You have pain that gets worse. Summary ? Heat therapy is the use of heat to help ease sore, stiff, injured, and tight muscles and joints. ? There are different types of heat therapy. Your doctor will tell you which one to use. ? Only use heat therapy while you are awake. ? Watch your skin to make sure you do not get burned while using heat therapy. This information is not intended to replace advice given to you by your health care provider. Make sure you discuss any questions you have with your health care provider. Document Revised: 03/18/2021 Document Reviewed: 03/18/2021 [employer] Patient Education ? 2022 [employer]. [facility] Lo 05-24-2023 SAGE Telephone (ADRY) LUPE PICKARD ([id number]) 1975 F Date Time Provider Department 05/24/23 STEPHIE BRAMBILA During your visit today, we recorded the following information about you: Stephie Brambila MD 05/24/2023 1:13 PM Signed Called patient to discuss lab results. Left VM. Stephie Brambila MD Allergies As of Date: 05/24/2023 (No Known Allergies) Date Reviewed: 05/17/2023 Reviewed by: Tracy Reyes LPN - Fully Assessed Prescriptions as of 05/24/2023 - levothyroxine (SYNTHROID) 112 mcg tablet Take 1 tablet (112 mcg) by mouth daily in the morning on an empty stomach - Cholecalciferol, Vitamin D3, 50 mcg (2,000 unit) cap Take 1 capsule by mouth every afternoon. - dilTIAZem CD (CARDIZEM CD, CARTIA XT) 240 mg 24 hr capsule Take 1 capsule by mouth every afternoon. - escitalopram oxalate (LEXAPRO) 10 mg tablet Take 1 tablet by mouth every afternoon. - HYDROcodone-acetamin ophen (NORCO) 5-325 mg per tablet TAKE 1 TABLET BY MOUTH 2 TIMES A DAY NEEDED FOR PAIN - magnesium oxide (MAG-OX) 400 mg (241.3 mg magnesium) tablet Take by mouth every 12 hours. - propranolol (INDERAL) 20 mg tablet TAKE 1 TABLET BY MOUTH 2 TIMES A DAY NEEDED FOR ANXIETY - temazepam (RESTORIL) 30 mg cap TAKE 1 CAPSULE BY MOUTH ONCE A DAY (AT BEDTIME) NEEDED FOR SLEEP 30 DAY SUPPLY - vit B-comp w-Fe,Ca,FA<1mg (IRON-VITAMINS ORAL) Take by mouth. - melatonin 10 mg tab Take by mouth. - Glucosamine-Chondroi tin 500-400 mg tablet Take 1 tablet by mouth three times daily. - FE FUMARATE/CA CARB/VITAMIN D3 ([id number] US FUMARATE ORAL) Take by mouth. - Multivitamin capsule Take 1 capsule by mouth once daily. - B Complex-Folic Acid 0.4 mg tab Take by mouth. - acidophilus-pectin, citrus (ACIDOPHILUS PROBIOTIC) 100 million-10 cell-mg cap Take by mouth. - thyroid, pork, (ARMOUR THYROID) 60 mg tab Take by mouth. - METHADONE HCL (METHADONE ORAL) Take by mouth. - sertraline (ZOLOFT) 100 mg tablet Take 100 mg by mouth once daily. - Topiramate (TOPAMAX) 50 mg tablet Take 50 mg by mouth twice daily. - zolpidem (AMBIEN) 10 mg tab Take by mouth at bedtime as needed. - buPROPion XL (WELLBUTRIN XL) 300 mg 24 hr tablet Take 300 mg by mouth once daily. - Calcium Carbonate-Vitamin D3 (VITAMIN D-3) 180-5,000 mg-unit tab Take by mouth. - Vehicle Base No.24, Bulk, (VERSABASEA) crea - PROGESTERONE, BULK, MISC - Conj Estrog-Medroxyproges t Tyrel 0.3-1.5 mg per tablet Take 1 tablet by mouth once daily. - FOLIC ACID, BULK, MISC - metaxalone 800 mg tablet Take 800 mg by mouth three times daily. - CALCIUM CARBONATE/VITAMIN D3 (CALCIUM + D ORAL) Take by mouth. - CYANOCOBALAMIN/COBAM AMIDE (B12 SUBLINGUAL) Dissolve under the tongue. - ALPRAZolam 1 mg tablet Take 1 mg by mouth at bedtime as needed. - amitriptyline 25 mg tablet Take 25 mg by mouth daily at bedtime. - metroNIDAZOLE (METROGEL) 1 % gel Apply to affected area. - lubiprostone (AMITIZA) 24 mcg capsule Take 24 mcg by mouth twice daily with meals. - liothyronine (CYTOMEL) 5 mcg tablet Take 5 mcg by mouth once daily. Problem List As Of Date 05/24/2023 Noted Resolved Depression [F32.A] Arthritis [M19.90] Fibromyalgia [M79.7] Neck pain [M54.2] Back pain [M54.9] Hypothyroid [E03.9] Irritable bowel syndrome [K58.9] Chronic pain [G89.29] 01/18/2014 Encounter Status:Closed by STEPHIE BRAMBILA on 05/24/23 Normal [facility] C3 SerPl-mCncon 05-19-2023 Complement C3 [Mass/Vol] 128 mg/dL Normal 86-166 [facility] Comment on above: Order Comment: Speci men Type: BLOOD SPECIMEN Ordering Facility: [facility] Address: [address] [place] [address] Performed By: #### V ITB6 #### [facility] CLIA [id number] [address] [place] [address] C4 SerPl-mCncon 05-19-2023 Complement C4 [Mass/Vol] 32 mg/dL Normal 13-46 [facility] Comment on above: Order Comment: Speci men Type: BLOOD SPECIMEN Ordering Facility: [facility] Address: [address] [place] [address] Performed By: #### V ITB6 #### [facility] [place] [id number] [address] [place] [address] CBC W Auto Differential pane l (Bld)on 05-19-2023 Basophils (Bld) [#/Vol] 0.03 10*3/uL Normal <0.11 [facility] Comment on above: Order Comment: Speci men Type: BLOOD SPECIMEN Ordering Facility: [facility] Address: [address] [place] [address] Performed By: #### V ITB6 #### [facility] CLIA [id number] [address] [place] [address] Basophils/100 WBC (Bld) 0.3 % Normal [facility] Comment on above: Order Comment: Speci men Type: BLOOD SPECIMEN Ordering Facility: [facility] Address: [address] [place] [address] Performed By: #### V ITB6 #### [facility] CLIA [id number] [address] [place] [address] Differential cell count method Nom (Bld) Auto Normal [facility] Comment on above: Order Comment: Speci men Type: BLOOD SPECIMEN Ordering Facility: [facility] Address: [address] [place] [address] Performed By: #### V ITB6 #### [facility] CLIA [id number] [address] [place] [address] Eosinophils (Bld) [#/Vol] 0.09 10*3/uL Normal <0.46 [facility] Comment on above: Order Comment: Speci men Type: BLOOD SPECIMEN Ordering Facility: [facility] Address: [address] [place] [address] Performed By: #### V ITB6 #### [facility] CLIA [id number] [address] [place] [address] Eosinophils/100 WBC (Bld) 0.8 % Normal [facility] Comment on above: Order Comment: Speci men Type: BLOOD SPECIMEN Ordering Facility: [facility] Address: [address] [place] [address] Performed By: #### V ITB6 #### [id number] [address] [place] [address] Erythrocyte distribution width (RBC) [Ratio] 14.7 % Normal 11.5-15.0 [facility] Comment on above: Order Comment: Speci men Type: BLOOD SPECIMEN Ordering Facility: [facility] Address: [address] [place] [address] Performed By: #### V ITB6 #### [facility] [id number] [address] [place] [address] Hematocrit (Bld) [Volume fraction] 42.6 % Normal 36.0-46.0 [facility] Comment on above: Order Comment: Speci men Type: BLOOD SPECIMEN Ordering Facility: [facility] Address: [address] [place] [address] Performed By: #### V ITB6 #### [id number] [address] [place] [address] Hemoglobin (Bld) [Mass/Vol] 14.2 g/dL Normal 11.5-15.5 [facility] Comment on above: Order Comment: Speci men Type: BLOOD SPECIMEN Ordering Facility: [facility] Address: [address] [place] [address] Performed By: #### V ITB6 #### [facility] [id number] [address] [place] [address] Immature granulocytes (Bld) [#/Vol] 0.04 10*3/uL Normal <0.10 [facility] Comment on above: Order Comment: Speci men Type: BLOOD SPECIMEN Ordering Facility: [facility] Address: [address] [place] [address] Performed By: #### V ITB6 #### [facility] CLIA [id number] [address] [place] [address] Immature granulocytes/100 WBC (Bld) 0.4 % Normal [facility] Comment on above: Order Comment: Speci men Type: BLOOD SPECIMEN Ordering Facility: [facility] Address: [address] [place] [address] Performed By: #### V ITB6 #### [facility] CLIA [id number] [address] [place] [address] Lymphocytes (Bld) [#/Vol] 3.03 10*3/uL Normal 1.00-4.00 [facility] Comment on above: Order Comment: Speci men Type: BLOOD SPECIMEN Ordering Facility: [facility] Address: [address] [place] [address] Performed By: #### V ITB6 #### [facility] CLIA [id number] [address] [place] [address] Lymphocytes/100 WBC (Bld) 28.3 % Normal [facility] Comment on above: Order Comment: Speci men Type: BLOOD SPECIMEN Ordering Facility: [facility] Address: [address] [place] [address] Performed By: #### V ITB6 #### [facility] CLIA [id number] [address] [place] [address] MCH (RBC) [Entitic mass] 29.2 pg Normal 26.0-34.0 [facility] Comment on above: Order Comment: Speci men Type: BLOOD SPECIMEN Ordering Facility: [facility] Address: [address] [place] [address] Performed By: #### V ITB6 #### [facility] CLIA [id number] [address] [place] [address] MCHC (RBC) [Mass/Vol] 33.3 g/dL Normal 30.5-36.0 [facility] Comment on above: Order Comment: Speci men Type: BLOOD SPECIMEN Ordering Facility: [facility] Address: [address] [place] [address] Performed By: #### V ITB6 #### [facility] CLIA [id number] [address] [place] [address] MCV (RBC) [Entitic vol] 87.5 fL Normal 80.0-100.0 [facility] Comment on above: Order Comment: Speci men Type: BLOOD SPECIMEN Ordering Facility: [facility] Address: [address] [place] [address] Performed By: #### V ITB6 #### [facility] CLIA [id number] [address] [place] [address] Monocytes (Bld) [#/Vol] 0.49 10*3/uL Normal <0.87 [facility] Comment on above: Order Comment: Speci men Type: BLOOD SPECIMEN Ordering Facility: [facility] Address: [address] [place] [address] Performed By: #### V ITB6 #### [facility] CLIA [id number] [address] [place] [address] Monocytes/100 WBC (Bld) 4.6 % Normal [facility] Comment on above: Order Comment: Speci men Type: BLOOD SPECIMEN Ordering Facility: [facility] Address: [address] [place] [address] Performed By: #### V ITB6 #### [facility] CLIA [id number] [address] [place] [address] Neutrophils (Bld) [#/Vol] 7.01 10*3/uL Normal 1.45-7.50 [facility] Comment on above: Order Comment: Speci men Type: BLOOD SPECIMEN Ordering Facility: [facility] Address: [address] [place] [address] Performed By: #### V ITB6 #### [facility] CLIA [id number] [address] [place] [address] Neutrophils/100 WBC (Bld) 65.6 % Normal [facility] Comment on above: Order Comment: Speci men Type: BLOOD SPECIMEN Ordering Facility: [facility] Address: [address] [place] [address] Performed By: #### V ITB6 #### [facility] CLIA [id number] [address] [place] [address] Nucleated RBC (Bld) [#/Vol] 10*3/uL Normal <0.01 [facility] Comment on above: Order Comment: Speci men Type: BLOOD SPECIMEN Ordering Facility: [facility] Address: [address] [place] [address] Performed By: #### V ITB6 #### [facility] CLIA [id number] [address] [place] [address] Nucleated RBC/100 WBC (Bld) [Ratio] 0.0 /100 WBC Normal [facility] Comment on above: Order Comment: Speci men Type: BLOOD SPECIMEN Ordering Facility: [facility] Address: [address] [place] [address] Performed By: #### V ITB6 #### [facility] IA [id number] [address] [place] [address] Platelet mean volume (Bld) [Entitic vol] 9.1 fL Normal 9.0-12.7 [facility] Comment on above: Order Comment: Speci men Type: BLOOD SPECIMEN Ordering Facility: [facility] Address: [address] [place] [address] Performed By: #### V ITB6 #### [facility] CLIA [id number] [address] [place] [address] Platelets (Bld) [#/Vol] 364 10*3/uL Normal 150-400 [facility] Comment on above: Order Comment: Speci men Type: BLOOD SPECIMEN Ordering Facility: [facility] Address: [address] [place] [address] Performed By: #### V ITB6 #### [facility] CLIA [id number] [address] [place] [address] RBC (Bld) [#/Vol] 4.87 10*6/uL Normal 3.90-5.20 [facility] Comment on above: Order Comment: Speci men Type: BLOOD SPECIMEN Ordering Facility: [facility] Address: [address] [place] [address] Performed By: #### V ITB6 #### [facility] CLIA [id number] [address] [place] [address] WBC (Bld) [#/Vol] 10.69 10*3/uL Normal 3.70-11.00 [facility] Comment on above: Order Comment: Speci men Type: BLOOD SPECIMEN Ordering Facility: [facility] Address: [address] [place] [address] Performed By: #### V ITB6 #### [id number] [address] [place] [address] Centromere Ab IF Ql (S)on Centromere Ab Qn (S) <0.2 Normal <1.0 [facility] Comment on above: Order Comment: Speci men Type: BLOOD SPECIMEN Ordering Facility: [facility] Address: [address] [place] [address] Result Comment: Anti -centromere antibody is used as in aid in diagnosis of systemic sclerosis. Clinical correlation is required. Test Methodology: Multiplex flow immunoassay. Performed By: #### 5 1775-5, 80222-6, 63827-1, 48710-6, 44437-8, 46706-4, 45510-1, 30481-2 #### [facility] CLIA [id number] [address] [place] [address] [place] CENTROMERE AB QUAL Negative Normal Negative [facility] Comment on above: Order Comment: Speci men Type: BLOOD SPECIMEN Ordering Facility: [facility] Address: [address] [place] [address] Performed By: #### 5 1775-5, 97565-1, 80788-6, 14139-1, 32274-8, 32370-7, 38101-9, 48511-5 #### [facility] CLIA [id number] [address] [place], [place] [id number] [place] Chromatin Ab Qnon 05-19-2023 CHROMATIN AB QUAL Negative Normal Negative [facility] Comment on above: Order Comment: Speci men Type: BLOOD SPECIMEN Ordering Facility: [facility] Address: [address] [place] [address] Performed By: #### 5 1775-5, 31244-5, 98055-8, 33536-7, 18247-7, 12163-4, 21875-5, 85440-6 #### [facility] CLIA [id number] [address] [place] [address] [place] Chromatin Ab SerPl-aCncon Chromatin Ab Qn <0.2 Normal <1.0 [facility] Comment on above: Order Comment: Speci men Type: BLOOD SPECIMEN Ordering Facility: [facility] Address: [address] [place] [address] Result Comment: Test Methodology: Multiplex flow immunoassay. Performed By: #### 5 1775-5, 74675-7, 45311-5, 31220-8, 05269-3, 63996-4, 16273-3, 29444-9 #### [facility] CLIA [id number] [facility] [place] [address] [place] Comprehensive metabolic 2000 panelon 05-19-2023 Albumin [Mass/Vol] 4.1 g/dL Normal 3.9-4.9 [facility] Comment on above: Order Comment: Speci men Type: BLOOD SPECIMEN Ordering Facility: [facility] Address: [address] [place] [address] Performed By: #### V ITB6 #### [facility] CLIA [id number] [address] [place] [address] ALP [Catalytic activity/Vol] 62 U/L Normal 34-123 [facility] Comment on above: Order Comment: Speci men Type: BLOOD SPECIMEN Ordering Facility: [facility] Address: [address] [place] [address] Performed By: #### V ITB6 #### [facility] CLIA [id number] [address] [place] [address] ALT [Catalytic activity/Vol] 19 U/L Normal 7-38 [facility] Comment on above: Order Comment: Speci men Type: BLOOD SPECIMEN Ordering Facility: [facility] Address: [address] [place] [address] Performed By: #### V ITB6 #### [facility] CLIA [id number] [address] [place] [address] Anion gap [Moles/Vol] 9 mmol/L Normal 9-18 [facility] Comment on above: Order Comment: Speci men Type: BLOOD SPECIMEN Ordering Facility: [facility] Address: [address] [place] [address] Performed By: #### V ITB6 #### [facility] CLIA [id number] [address] [place] [address] AST [Catalytic activity/Vol] 10 U/L Low 13-35 [facility] Comment on above: Order Comment: Speci men Type: BLOOD SPECIMEN Ordering Facility: [facility] Address: [address] [place] [address] Performed By: #### V ITB6 #### [facility] CLIA [id number] [address] [place] [address] Bilirubin [Mass/Vol] 0.2 mg/dL Normal 0.2-1.3 [facility] Comment on above: Order Comment: Speci men Type: BLOOD SPECIMEN Ordering Facility: [facility] Address: [address] [place] [address] Performed By: #### V ITB6 #### [facility] CLIA [id number] [address] [place] [address] Calcium [Mass/Vol] 9.2 mg/dL Normal 8.5-10.2 [facility] Comment on above: Order Comment: Speci men Type: BLOOD SPECIMEN Ordering Facility: [facility] Address: [address] [place] [address] Performed By: #### V ITB6 #### [facility] CLIA [id number] [address] [place] [address] Chloride [Moles/Vol] 106 mmol/L High 97-105 [facility] Comment on above: Order Comment: Speci men Type: BLOOD SPECIMEN Ordering Facility: [facility] Address: [address] [place] [address] Performed By: #### V ITB6 #### [facility] CLIA [id number] [address] [place] [address] CO2 [Moles/Vol] 27 mmol/L Normal 22-30 [facility] Comment on above: Order Comment: Speci men Type: BLOOD SPECIMEN Ordering Facility: [facility] Address: [address] [place] [address] Performed By: #### V ITB6 #### [facility] CLIA [id number] [address] [place] [address] Creatinine [Mass/Vol] 0.65 mg/dL Normal 0.58-0.96 [facility] Comment on above: Order Comment: Speci men Type: BLOOD SPECIMEN Ordering Facility: [facility] Address: [address] [place] [address] Performed By: #### V ITB6 #### [facility] CLIA [id number] [address] [place] [address] Creatinine and Glomerular filtration rate.predicted panel (S/P/Bld) 110 mL/min/1.73m??? Normal >=60 [facility] Comment on above: Order Comment: Speci men Type: BLOOD SPECIMEN Ordering Facility: [facility] Address: [address] [place] [address] Result Comment: Anne mated Glomerular Filtration Rate (eGFR) is calculated using the 2020 CKD-EPI creatinine equation. This equation utilizes serum creatinine, sex, and age as parameters. The creatinine assay has traceable calibration to isotope dilution-mass spectrometry. Refer to KDIGO guidelines for clinical interpretation. In patients with unstable renal function, e.g. those with acute kidney injury, the eGFR may not accurately reflect actual GFR. Performed By: #### V ITB6 #### [facility] CLIA [id number] [address] [place] [address] Glucose [Mass/Vol] 105 mg/dL High 74-99 [facility] Comment on above: Order Comment: Speci men Type: BLOOD SPECIMEN Ordering Facility: [facility] Address: [address] [place] [address] Result Comment: The [place] Diabetes [employer] (ADA) provides guidance for cutoff values for fasting glucose and random glucose. The ADA defines fasting as no caloric intake for at least 8 hours. Fasting plasma glucose results between 100 to 125 mg/dL indicate increased risk for diabetes (prediabetes). Fasting plasma glucose results greater than or equal to 126 mg/dL meet the criteria for diagnosis of diabetes. In the absence of unequivocal hyperglycemia, results should be confirmed by repeat testing. In a patient with classic symptoms of hyperglycemia or hyperglycemic crisis, random plasma glucose results greater than or equal to 200 mg/dL meet the criteria for diagnosis of diabetes. Reference: Standards of Medical Care in Diabetes 2016, [place] [employer]. Diabetes Care. 2016.39(Suppl 1). Performed By: #### V ITB6 #### [facility] CLIA [id number] [address] [place] [address] Potassium [Moles/Vol] 4.3 mmol/L Normal 3.7-5.1 [facility] Comment on above: Order Comment: Speci men Type: BLOOD SPECIMEN Ordering Facility: [facility] Address: [address] [place] [address] Performed By: #### V ITB6 #### [facility] CLIA [id number] [address] [place] [address] Protein [Mass/Vol] 6.7 g/dL Normal 6.3-8.0 [facility] Comment on above: Order Comment: Speci men Type: BLOOD SPECIMEN Ordering Facility: [facility] Address: [address] [place] [address] Performed By: #### V ITB6 #### [facility] CLIA [id number] [address] [place] [address] Sodium [Moles/Vol] 142 mmol/L Normal 136-144 [facility] Comment on above: Order Comment: Speci men Type: BLOOD SPECIMEN Ordering Facility: [facility] Address: [address] [place] [address] Performed By: #### V ITB6 #### [facility] CLIA [id number] [address] [place] [address] Urea nitrogen [Mass/Vol] 17 mg/dL Normal 7-21 [facility] Comment on above: Order Comment: Speci men Type: BLOOD SPECIMEN Ordering Facility: [facility] Address: [address] [place] [address] Performed By: #### V ITB6 #### [id number] [address] [place] [address] DNA ANTIBODY DS BLDon 2022 DNA ANTIBODY 25 IU/mL Normal <=200 [facility] Comment on above: Order Comment: Speci men Type: BLOOD SPECIMEN Ordering Facility: [facility] Address: [address] [place] [address] Performed By: #### V ITB6 #### [facility] [id number] [address] [place] [address] DNA ANTIBODY QUALITATIVE INTERPRETATION Negative Normal Negative [facility] Comment on above: Order Comment: Speci men Type: BLOOD SPECIMEN Ordering Facility: [facility] Address: [address] [place] [address] Performed By: #### V ITB6 #### [facility] [id number] [address] [place] [address] MARCIO Jo1 Ab Ser-aCncon 2022 Elsa-1 extractable nuclear Ab Qn (S) <0.2 Normal <1.0 [facility] Comment on above: Order Comment: Speci men Type: BLOOD SPECIMEN Ordering Facility: [facility] Address: [address] [place] [address] Performed By: #### 5 5-5, 12872-9, 15790-9, 21412-0, 10693-1, 43747-0, 93269-9, 81694-2 #### [facility] CLIA [id number] [address] [facility] [id number] STATES OF [facility] MARCIO PROCEDURES NURSE Ab Ser-aCncon 2022 Ribonucleoprotein extractable nuclear Ab Qn (S) <0.2 Normal <1.0 [facility] Comment on above: Order Comment: Speci men Type: BLOOD SPECIMEN Ordering Facility: [facility] Address: [address] [place] [address] Performed By: #### 5 1775-5, 24620-8, 27148-4, 25598-5, 19565-9, 61938-7, 45565-0, 34055-1 #### [facility] CLIA [id number] [address] [place] [address] [place] Ribonucleoprotein extractable nuclear Ab Qn (S) 0.2 AI Normal <1.0 [facility] Comment on above: Order Comment: Speci men Type: BLOOD SPECIMEN Ordering Facility: [facility] Address: [address] [place] [address] Performed By: #### V ITB6 #### [facility] CLIA [id number] [address] [place] [address] MARCIO SM IgG Ser-aCncon 2022 Lobo extractable nuclear IgG Qn (S) <0.2 Normal <1.0 [facility] Comment on above: Order Comment: Speci men Type: BLOOD SPECIMEN Ordering Facility: [facility] Address: [address] [place] [address] Performed By: #### 5 1775-5, 30876-8, 79240-8, 44872-9, 06648-1, 04269-1, 32732-1, 96113-9 #### [facility] CLIA [id number] [address] [place] [address] [place] MARCIO SS-A Ab Ser-aCncon 05-19 Sjogrens syndrome-A extractable nuclear Ab Qn (S) <0.2 Normal <1.0 [facility] Comment on above: Order Comment: Speci men Type: BLOOD SPECIMEN Ordering Facility: [facility] Address: [address] [place] [address] Result Comment: Test Methodology: Multiplex flow immunoassay. Performed By: #### 5 1775-5, 56558-0, 03749-4, 62703-7, 69732-5, 74665-2, 16777-8, 30068-6 #### [facility] CLIA [id number] [address] [place] [address] [place] MARCIO SS-B Ab Ser-aCncon 05-19 Sjogrens syndrome-B extractable nuclear Ab Qn (S) <0.2 Normal <1.0 [facility] Comment on above: Order Comment: Nicky crawley Type: BLOOD SPECIMEN Ordering Facility: [facility] Address: [address] [place] [address] Result Comment: Anti -SSB (anti-La) antibody is used as an aid in diagnosis of a variety of systemic autoimmune diseases, especially for Sjogren's syndrome and systemic lupus erythematosus. Clinical correlation is required. Test Methodology: Multiplex flow immunoassay. Performed By: #### 5 5-5, 26367-2, 64597-4, 67861-7, 63296-8, 43655-4, 48478-9, 48614-0 #### [facility] CLIA [id number] [address] [place] [address] [place] [facility] Folate [Mass/Vol] 13.0 ng/mL Normal >4.7 [facility] Comment on above: Order Comment: Nicky crawley Type: BLOOD SPECIMEN Ordering Facility: [facility] Address: [address] [place] [address] Performed By: #### [facility] #### [facility] [id number] [address] [place] [address] Elsa-1 extractable nuclear Ab Qn (S)on 05-19-2023 ELSA 1 ANTIBODY QUAL Negative Normal Negative [facility] Comment on above: Order Comment: Nicky crawley Type: BLOOD SPECIMEN Ordering Facility: [facility] Address: [address] [place] [address] Result Comment: Anti -ELSA-1 antibody is used as an aid in diagnosis of polymyositis and dermatomyositis especially with pulmonary involvement. A negative result cannot rule out polymyositis or dermatomyositis. Clinical correlation is required. Test Methodology: Multiplex flow immunoassay. Performed By: #### 5 5-5, 17447-9, 73545-2, 30920-7, 92214-9, 34436-1, 63523-5, 48987-1 #### [facility] CLIA [id number] [address] [place] [address] [place] Ribonucleoprotein extractabl e nuclear Ab Qn (S)on 05-19-2023 ANTI-PROCEDURES NURSE QUAL Negative Normal Negative [facility] Comment on above: Order Comment: Nicky crawley Type: BLOOD SPECIMEN [facility]ing Facility: [facility] Address: [address] [place] [address] Performed By: #### V ITB6 #### [facility] CLIA [id number] [address] [place] [address] RIBOSOMAL PROCEDURES NURSE QUAL Negative Normal Negative [facility] Comment on above: Order Comment: Speci men Type: BLOOD SPECIMEN Ordering Facility: [facility] Address: [address] [place] [address] Result Comment: Anti -Ribosomal RNA (Ribosomal P) antibody is used as an aid in diagnosis of systemic autoimmune diseases especially systemic lupus erythematosus and mixed connective tissue disease. Cross-reactivity with Anti-lobo antibody is not uncommon. Clinical correlation is required. Test Methodology: Multiplex flow immunoassay. Performed By: #### 5 1775-5, 31355-2, 13802-9, 04349-8, 01957-4, 26060-6, 04025-3, 45926-0 #### [facility] CLIA [id number] [facility] [place] [address] [place] SCL-70 extractable nuclear I gG IA Qn (S)on 05-19-2023 SCLERODERMA AB QUAL Negative Normal Negative [facility] Comment on above: Order Comment: Nicky crawley Type: BLOOD SPECIMEN Ordering Facility: [facility] Address: [address] [place] [address] Performed By: #### 5 1775-5, 56498-8, 77611-6, 73298-0, 18458-3, 80075-0, 65975-6, 85772-8 #### [facility] CLIA [id number] [facility] [place] [address] [place] SCLERODERMA IGG AB <0.2 Normal <1.0 [facility] Comment on above: Order Comment: Nicky crawley Type: BLOOD SPECIMEN Ordering Facility: [facility] Address: [address] [place] [address] Result Comment: Scl- 70/Scleroderma antibody test is used as an aid in diagnosis of systemic sclerosis especially the diffuse cutaneous form. A negative result cannot rule out systemic sclerosis. The final interpretation should consider clinical picture and other test results such as anti-centromere antibody. Test Methodology: Multiplex flow immunoassay. Performed By: #### 5 1775-5, 24773-7, 12453-7, 99112-2, 86434-2, 16820-4, 99145-6, 46441-3 #### [facility] CLIA [id number] [address] [place] [address] [place] Sjogrens syndrome-A extracta ble nuclear Ab Qn (S)on 05-19-2023 SSA ANTIBODY QUAL Negative Normal Negative [facility] Comment on above: Order Comment: Speci men Type: BLOOD SPECIMEN [facility]ing Facility: [facility] Address: [address] [place] [address] Performed By: #### 5 1775-5, 52563-8, 27931-6, 58262-4, 26809-2, 40082-2, 84620-9, 10084-2 #### [facility] CLIA [id number] [address] [place] [address] [place] Sjogrens syndrome-B extracta ble nuclear Ab Qn (S)on 05-19-2023 SSB ANTIBODY QUAL Negative Normal Negative [facility] Comment on above: Order Comment: Speci men Type: BLOOD SPECIMEN [facility]ing Facility: [facility] Address: [address] [place] [address] Performed By: #### 5 1775-5, 73320-5, 16996-3, 40143-1, 65621-0, 02348-5, 12480-6, 77602-9 #### [facility] CLIA [id number] [address] [place] [id number] [place] Lobo extractable nuclear Ig G Qn (S)on 05-19-2023 SM ANTIBODY QUAL Negative Normal Negative [facility] Comment on above: Order Comment: Speci denisa Type: BLOOD SPECIMEN [facility]ing Facility: [facility] Address: [address] [place] [address] Result Comment: Anti -Sm (Lobo) antibody is used as an aid in diagnosis of systemic lupus erythematosus and its presence is associated with renal disease. A negative result cannot rule out systemic lupus erythematosus. Clinical correlation is required. Test Methodology: Multiplex flow immunoassay. Performed By: #### 5 1775-5, 56157-9, 68483-6, 99820-2, 29855-6, 00844-9, 75397-2, 75667-9 #### [facility] CLIA [id number] [address] [facility] [place] [address] [facility] VITAMIN B6/PYRIDOXINon 05-19 VITAMIN B6 169.1 nmol/L High 20.0-125.0 [facility] Comment on above: Order Comment: [facility]y [facility] Type: BLOOD SPECIMEN [facility] Facility: [facility] Address: [address] [place] [address] Result Comment: INTE RPRETIVE INFORMATION: Vitamin B6 (Pyridoxal 5-Phosphate) Pyridoxal 5'-phosphate measured in a specimen collected following an 8-hour or overnight fast accurately indicates vitamin B6 nutritional status. Non-fasting specimen concentration reflects recent vitamin intake. This test was developed and its performance characteristics determined by [facility]. It has not been cleared or approved by the [place] Food and Drug Administration. This test was performed in a CLIA certified laboratory and is intended for clinical purposes. Performed By: [facility] [address] [place] [address] French Weaver: rGeg Wong MD, PhD CLIA Number: [id number] Performed By: #### V ITB6 #### [facility] CLIA [id number] [address] [place] [address] [facility] Cobalamin (Vitamin B12) [Mass/Vol] 412 pg/mL Normal 232-1245 [facility] Comment on above: Order Comment: [facility] Type: BLOOD SPECIMEN [facility] Facility: [facility] Address: [address] [place] [address] Performed By: #### V ITB6 #### [facility] [id number] [address] [place] [address] CNOVon 05-17-2023 CNOV Office Visit (ADRY) LUPE PICKARD ([id number]) 1975 F Date Time Provider Department 05/17/23 2:00 PM STEPHIE BRAMBILA During your visit today, we recorded the following information about you: Pulse Respiration Blood pressure Weight 70/minute 18/minute 144/81 121.8 kg Stephie Brambila MD 05/17/2023 2:50 PM Signed [facility] Date of Service: 05/17/2023 Patient: Lupe Pickard Medical Record: [id number] Last Rheumatology visit: None at [facility] History of Present Illness Lupe Pickard is a 48 year old White female who presents on 05/17/2023 for an in-person visit for evaluation of Establish Care (All over pain; fatigue; feels like butter fly rash on face; +WILL in the past). HISTORY OF PRESENT ILLNESS Past medical history: fibromyalgia, hypothyroidism, depression, anxiety, gastritis, Past surgical history: thyroidectomy, hysterectomy, 4 caesarian sections, eye surgery - unspecified She has diffuse pain throughout her body. Notes she gets a rash across the bridge of her nose. She also has significant fatigue. She notes she previously had positive WILL. She has had pain for over 10 years. She was diagnosed with fibromyalgia at least 10 years. Most of her pain is in her neck and back. Notes she has spinal pathology. There are times when she has pain from her head to her feet. Notices it in the joints and the muscles. All over pain occurs a few times a week. For her back and neck she uses heat/ice, massage which helps. She takes Bruni 5mg that does not do much for her right now. Activity such as laundry or other house work can aggravate her symptoms. She has had fatigue for many years as well. Notes she had thyroidectomy and is on thyroid replacement currently. Thyroid levels have been stable. Prior h/o Vitamin D replacement. On replacement. Reports iron deficiency with normal hemoglobin. Just started this. No other notable cell count aberrancies. Fatigue daily. Present even if she has slept 8-10 hours. Had a sleep study few months ago that was normal. No h/o renal or liver disease. No h/o lung disease. Notes she was diagnosed with Lyme and EBV based on her fatigue (do not have labs from this). Seen by a holistic physician at that time. Facial rash present intermittently for the last 1 year. No warmth, itching. No known triggering factors such as food, stress, alcohol, sun. Lasts for a few hours then resolves. Not currently active. Was going to the gym on the exercise bike 5 days a week. ROS: No oral or genital ulcers Color changes in the cold but no raynauds No pericarditis or pleuritis No blood clots No dry eyes or dry mouth No discoid rash No migraines Very intermittent numbness/tingling in her hands or feet. No photosensitivity Health maintenance: Up to date on pap smear Up to date on mammogram Normal colonoscopy Social: Tobacco - 2-3 cigarettes 2 times per month No ETOH No drug use On disability for the last 10 years. 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 Family History: No known FH of autoimmune disease Patient-Entered Data PROMIS Assessments No flowsheet data found.No flowsheet data found.No flowsheet data found.No flowsheet data found. RAPID 3 Lucia Activities of Daily Living No Data Dress self? - Get in and out of bed? - Walk outdoors? - Wash and dry body? - Get in and out of car? - RAPID 3 Disease Activity Weighed Score Levels: 0 - 1: Near Remission 1.3 - 2.0: Low Severity 2.3 - 4.0: Moderate Severity 4.3 - 10.0: High Severity No flowsheet data found. Patient Health Questionnaire (PHQ-9) PHQ-9 01/18/2014 Score 19 (0-4) minimal depression, (5-9) mild depression, (10-14) moderate depression, (15-19) moderately severe depression, (20-27) severe depression Review of Systems ROS RHEUMATOLOGYAll other reviewed and negative other than HPI. Current Medications Current Outpatient Medications on File Prior to Visit Medication Sig levothyroxine (SYNTHROID) 112 mcg tablet Take 1 tablet (112 mcg) by mouth daily in the morning on an empty stomach Cholecalciferol, Vitamin D3, 50 mcg (2,000 unit) cap Take 1 capsule by mouth every afternoon. dilTIAZem CD (CARDIZEM CD, CARTIA XT) 240 mg 24 hr capsule Take 1 capsule by mouth every afternoon. escitalopram oxalate (LEXAPRO) 10 mg tablet Take 1 tablet by mouth every afternoon. HYDROcodone-acetamin ophen (NORCO) 5-325 mg per tablet TAKE 1 TABLET BY MOUTH 2 TIMES A DAY NEEDED FOR PAIN magnesium oxide (MAG-OX) 400 mg (241.3 mg magnesium) tablet Take by mouth every 12 hours. propranolol (INDERAL) 20 mg tablet TAKE 1 TABLET BY MOUTH 2 TIMES A DAY NEEDED FOR ANXIETY temazepam (RESTORIL) 30 mg cap TAKE 1 CAPSULE BY MOUTH ONCE A DAY (AT BEDTIME) NEEDED FOR SLEEP 30 DAY SUPPLY vit B-comp w-Fe,Ca,FA<1mg (IRON-VITAMINS ORAL) Take by mouth. melatonin 10 mg ta (more content not included)... Normal [facility] Medicine Office/Clini c Noteon 05-10-2023 [...] taking BID still takes Tylenol BID and Bruni BID - inconsistent benefit - feels her body is getting used to it and it is helping less. still interested in stopping Bruni at some point. Waiting for marijuana to become available again. neck pain 7/10 today localized to right side described as constant ache no aggravating or relieving factors. Bruni/Tylenol provide inconsistent benefit. helps for a little [...] few times a month. increased CRP. seeing office services coordinator next Tuesday colonoscopy done at [facility] on - note unavailable from last note: Fibromyalgia (M79.7: Fibromyalgia) Impression: Chronic Symptoms are improving; could be better Allodynia/hyperalges ia persists; Narcotic medication has been utilized for [...] movement n (more content not included)... Normal [facility] Comment on above: Result Comment: Elec tronically Signed By: Diony Singh DO\.br\Date and Time Signed: 05/10/23 19:24 EST\.br\Electronically Co-Signed By: Charlene Cervantes\.br\Date and Time Co-Signed: 05/10/23 15:17 EST Patient Educationon 05-10-20 23 Patient Education Orthopedics Chronic Back Pain When [...] them backward. ? 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 ? Take ozjy-pdr-gligudz and prescription medicines only as told by your doctor. ? Ask your doctor if the medicine prescribed to you: ? Requires you to avoid driving or using machinery. ? Can cause trouble pooping (constipation). You may need to take these actions to prevent or treat trouble pooping: ? Drink enough fluid to keep your pee (urine) pale yellow. ? Take zzeq-ofp-nlryltc or prescription medicines. ? Eat foods that [...] provider. Document Revised: 06/25/2020 Document Reviewed: 06/25/2020 [employer] Patient Education ? 2022 [employer] Yo [facility] Family Medicine Office/Clini c Noteon 04-15-2023 Family [...] feel as good. 04/11/23 - cardiology - Christophe palpitations and blood pressure control - managed [...] use 1% hydrocortisone 03/28/23 - PCP - Becky Aguirre, MARLYN Rash started 20 days ago while on a 30 day outpatient heart monitor - mainly in the area where the patches were located --> developed a more diffuse rash *also noted to have stopped her iron supplement 4 days prior with no change to the rash seen in [facility] urgent care on 03/27 - rec'd a [...] --> recommend Driven to Distraction Future Appointments [facility] Quinn Appt. Date: 05/03/2023 1:00 PM Scheduled Provider: Diony Singh DO [address] [place], [place], [id number] Phone: -- Fax: -- [facility] Ball Appt. Date: 11/16/2023 1:00 PM [...] 1 month (more content not included)... Normal [facility] Comment on above: Result Comment: Elec tronically Signed By: Diony Singh DO\Date and Time Signed: 04/15/23 13:41 EST Consent for Treatmenton 03-30 Consent for Treatment [id number] #1.00TIFF Normal [facility] Heart and Vascular Office/Cl inic Noteon 04-11-2023 [...] with voice recognition artificial intelligence software, specifically Lollipuff, Ahonya and or FABPulous. Substitutions may have occurred due to the inherent limitations of voice recognition and artificial intelligence software. Follow-up With When Contact Information SANTY PELAYO, Franklyn Arias Within [address] [place] [phone] Additional Instructions: Problem List/Past Medical History Ongoing Anxiety Atopic dermatitis Autoimmune disorder BMI 40.0-44.9, adult Butterfly rash Chronic bilateral low back pain Chronic insomnia Diffuse arthralgia Establishing care with new doctor, encounter for Exercise counseling Fibromyalgia GERD (gastroesophageal reflux disease) Medication management Moderate recurrent major depression Morbid obesity Nutritional counseling Other specified hypothyroidism Overactive bladder Palpitati (more content not included)... Normal [facility] Comment on above: Result Comment: Elec tronically Signed By: Roula SAEED CNP\.br\Date and Time Signed: 04/11/23 11:37 EST\.br\Electronically Co-Signed By: Brayan PELAYO, Owen Brown\.br\Date and Time Co-Signed: 04/24/23 21:03 EST Outside Recordson 04-11-2023 Outside Records [id number]#1.00TIFF Normal [facility] Physician Orderon 04-11-2023 Physician Order [id number] 6#1.00TIFF [facility] Event Monitoron 04-07-2023 Event Monitor [id number] #1.00TIFF Normal [facility] Lab Reportson 03-31-2023 Lab Reports [id number] #1.00TIFF Normal [facility] WILL with Reflexon 03-29-2023 WILL with Reflex Negative Normal Negative [facility] Comment on above: Result Comment: Perf ormed at: CB - [facility] [address] [id number] Base Wad Operator Adjuster: Ramirez Ca PhD, Phone: [phone] Performed By: #### F OL, B12, HSCRP, ESR #### [address] #### WILL CHOICE, RA, LYME AB wRFX, SPE #### [facility] , C reactive protein [Mass/vol ume] in Serum or Plasma by High sensitivity methodOrdered By: Becky Aguirre on 03-29-2023 CRP High sensitivity method [Mass/Vol] 4.6 mg/L 0.0-0.9 [facility] Comment on above: Cardiovascular Risk Classification (AHA/CDC)hsCRP [...] ESR (Bld) [Velocity] 14 mm/h Normal 0-19 [facility] Comment on above: Result Comment: PERF ORMED BY: [place] [address] PATHOLOGIST COMMUNICATION SPECIALIST WENDY CLARK M.D. Performed By: #### F OL, B12, HSCRP, ESR #### [address] #### WILL CHOICE, RA, LYME AB wRFX, SPE #### [facility] , Erythrocyte sedimentation ra te by Photometric methodOrdered By: Becky Aguirre on 03-29-2023 ESR Photometric method (Bld) [Velocity] 14 mm/hr 0-19 [facility] Folateon 03-29-2023 Folate 32.0 ng/mL Normal >5.9 [facility] Comment on above: Result Comment: Janel te reference range: >5.9 ng/ml The WHO technical consultation on folate and vitamin b12 deficiencies has determined that folate concentrations less than 4 ng/ml are considered deficient. PERFORMED BY: [place] [address] PATHOLOGIST COMMUNICATION SPECIALIST WENDY CLARK M.D. Performed By: #### F OL, B12, HSCRP, ESR #### [address] #### WILL CHOICE, RA, LYME AB wRFX, SPE #### [facility] , High Sensitive CRPon 023 High Sensitive CRP 4.6 mg/L High 0.0-0.9 [facility] Comment on above: Result Comment: Card [...] for estimation of CVD risk. PERFORMED BY: [place] [address] PATHOLOGIST COMMUNICATION SPECIALIST WENDY CLARK M.D. Performed By: #### F OL, B12, HSCRP, ESR #### [address] #### WILL CHOICE, RA, LYME AB wRFX, SPE #### [facility] , [facility] 03-29-2023 L Specimen: [id number] Received: 03/29/23 Status: ALEXA Moises Num: [id number] Spec Type: Surgical Subm Dr: Beny Alvarez MD Tissues: A Duodenum - Biopsy (DUODENAL BX) Procedures: HE/2, Gross/Micro L4 Age/ Patient Sex Location Account Attending Physician Lupe Pickard 47/F [id number] Beny Alvarez MD SPEC NUM: [id number] RECD: 03/29/23 STATUS: ALEXA BAUER NUM: [id number] NARINDER: 03/29/[address] [facility] [address]: Beny Alvarez MD ENTERED: 03/29/[address] [facility] [address]: SNEHAL TYPE: Surgical DEPT: S ORDERED: [...] microscopic examination confirms the diagnosis. CPT Codes 38843 Specimen: [id number] Received: 03/29/23 Status: ALEXA Bauer Num: [id number] Spec Type: Surgical Subm Dr: Beny Alvarez MD Tissues: A Duodenum - Biopsy (DUODENAL BX) Procedures: HE/2, Gross/Micro L4 Patient: Lupe Pickard [id number] (Continued) Signed (signature on file) Antoine Sigala MD 03/30/23 5708 [facility] Lab Reportson 03-29-2023 Lab Reports [id number] #1.00TIFF Normal [facility] Lab Reports [id number] #1.00TIFF Normal [facility] Lyme, Total Ab with Reflexon 03-29-2023 Lyme Total Antibody Negative Normal Negative [facility] Comment on above: Result Comment: Lyme antibodies not detected. Reflex testing is not indicated. No laboratory evidence of infection with B. burgdorferi (Lyme disease). Negative results may occur in patients recently infected (less than or equal to 14 days) with B. burgdorferi. If recent infection is suspected, repeat testing on a new sample collected in 7 to 14 days is recommended. Performed at: [facility] [id number] Base Wad Operator Adjuster: Ramirez Ca PhD, Phone: [phone] PERFORMED BY: [facility] [address] [place] [address] PATHOLOGIST COMMUNICATION SPECIALIST WENDY CLARK M.D. Performed By: #### F OL, B12, HSCRP, ESR ####[facility]#### WILL CHOICE, RA, LYME AB wRFX, SPE ####[facility] , Outside Colonoscopyon 2022 Outside Colonoscopy [id number] #1.00TIFF Normal [facility] Outside Hospital Correspo ndenceon 03-29-2023 Outside Hospital Correspondence [id number] #1.00TIFF Normal [facility] Protein Electrophoresis, Ser umon 03-29-2023 Albumin [Mass/Vol] 3.5 g/dL Normal 2.9-4.4 [facility] Comment on above: Performed By: #### F OL, B12, HSCRP, ESR #### [facility] [address] [place] [address] [place] #### WILL CHOICE, RA, LYME AB wRFX, SPE #### [facility] , Albumin/Globulin [Mass ratio] 1.1 {ratio} Normal 0.7-1.7 [facility] Comment on above: Performed By: #### F OL, B12, HSCRP, ESR #### [facility] [address] [place] [address] #### WILL CHOICE, RA, LYME AB wRFX, SPE #### [facility] , Ivbts-1-Lmwjwlqa 0.3 g/dL Normal 0.0-0.4 [facility] Comment on above: Performed By: #### F OL, B12, HSCRP, ESR #### [facility] [address] [place] [address] [place] #### WILL CHOICE, RA, LYME AB wRFX, SPE #### [facility] , Kfcuh-3-Qdzzrlia 0.8 g/dL Normal 0.4-1.0 [facility] Comment on above: Performed By: #### F OL, B12, HSCRP, ESR #### [facility] [address] [place] [address] [place] #### WILL CHOICE, RA, LYME AB wRFX, SPE #### [facility] , Beta Globulin 1.0 g/dL Normal 0.7-1.3 [facility] Comment on above: Performed By: #### F OL, B12, HSCRP, ESR #### [facility] [address] [place] [address] [place] #### WILL CHOICE, RA, LYME AB wRFX, SPE #### [facility] , Gamma Globulin 1.1 g/dL Normal 0.4-1.8 [facility] Comment on above: Performed By: #### F OL, B12, HSCRP, ESR #### [facility] [address] [place] [address] [place] #### WILL CHOICE, RA, LYME AB wRFX, SPE #### [facility] , Globulin (S) [Mass/Vol] 3.2 g/dL Normal 2.2-3.9 [facility] Comment on above: Performed By: #### F OL, B12, HSCRP, ESR #### [place] [address] [place] #### WILL CHOICE, RA, LYME AB wRFX, SPE #### [facility] , M-Chacorta Not Observed Normal Not Observed [facility] Comment on above: Performed By: #### F OL, B12, HSCRP, ESR #### [place] [address] [place] #### WILL CHOICE, RA, LYME AB wRFX, SPE #### [facility] , Protein [Mass/Vol] 6.7 g/dL Normal 6.0-8.5 [facility] Comment on above: Performed By: #### F OL, B12, HSCRP, ESR #### [place] [address] [place] #### WILL CHOICE, RA, LYME AB wRFX, SPE #### [facility] , SPE-Note Normal . [facility] Comment on above: Result Comment: Prot ein electrophoresis scan will follow via computer, mail, or digitizer operator delivery. Performed at: [employer] [id number] Base Wad Operator Adjuster: Ramirez Ca PhD, Phone: [phone] Performed By: #### F OL, B12, HSCRP, ESR #### [place] [address] [place] #### WILL CHOICE, RA, LYME AB wRFX, SPE #### [facility] , Rheumatoid Factoron 03-29-20 23 Rheumatoid Factor 10.8 Normal <14.0 [facility] Comment on above: Result Comment: Perf ormed at: [facility] [employer] [id number] Base Wad Operator Adjuster: Ramirez Ca PhD, Phone: [phone] Performed By: #### F OL, B12, HSCRP, ESR #### [facility] [address] [place] [address] [place] #### WILL CHOICE, RA, LYME AB wRFX, SPE #### [facility] , Vitamin B12on 03-29-2023 Cobalamin (Vitamin B12) [Mass/Vol] 464 pg/mL Normal 180-914 [facility] Comment on above: Performed By: #### F OL, B12, HSCRP, ESR #### [facility] [address] [place] [address] [place] #### WILL CHOICE, RA, LYME AB wRFX, SPE #### [facility] , Vitamin B12 ser/plasOrdered By: Becky Aguirre on 03-29-2023 Cobalamin (Vitamin B12) [Mass/Vol] 464 pg/mL 180-914 [facility] Family Medicine Office/Clini c Noteon 03-28-2023 Family [...] done Wellness: Due Recent labs: done at [facility] results scanned in chart History of Present [...] body is itching as well. Went to [facility] yesterday and received a Kenalog shot, and [...] hydrocortisone cream (more content not included)... Normal [facility] Comment on above: Result Comment: Elec tronically Signed By: BECKY GUTIERRES\.br\Date and Time Signed: 03/28/23 14:29 EDT Patient [...] these instructions at home: Medicines ? Take urqb-qaf-oqsidgq and prescription medicines only as told by [...] Where to find more information ? National [place] of Allergy and Infectious Disease: www.niaid.nih.gov Contact [...] nausea o (more content not included)... Normal [facility] Lab Reportson 03-25-2023 Lab Reports [id number]# 1.00TIFF Normal [facility] Lab Reportson 03-18-2023 Lab Reports [id number] #1.00TIFF Normal [facility] Lab Reports [id number] #1.00TIFF [facility] Alanine aminotransferase [En zymatic activity/volume] in Serum or PlasmaOrdered By: Radha Mcintosh on 03-17-2023 ALT [Catalytic activity/Vol] 13 U/L 7-52 [facility] Albumin [Mass/volume] in Ser um or Plasma by Bromocresol green (BCG) dye binding methoOrdered By: Radha Mcintosh on 03-17-2023 Albumin BCG dye [Mass/Vol] 4.2 g/dL 3.5-5.7 [facility] Alkaline phosphatase [Enzyma tic activity/volume] in Serum or PlasmaOrdered By: Radha Mcintosh on 03-17-2023 ALP [Catalytic activity/Vol] 66 U/L 34-104 [facility] Aspartate aminotransferase [ Enzymatic activity/volume] in Serum or PlasmaOrdered By: Radha Mcintosh on 03-17-2023 AST [Catalytic activity/Vol] 11 U/L 13-39 [facility] Basophils Auto (Bld) [#/Vol] Ordered By: Radha Mcintosh on 03-17-2023 Basophils (Bld) [#/Vol] 0.1 10*3/uL 0.0-0.2 [facility] Basophils/100 WBC Auto (Bld) Ordered By: Radha Mcintosh on 03-17-2023 Basophils/100 WBC (Bld) 0.8 % . [facility] Bilirubin.total [Mass/volume ] in Serum or PlasmaOrdered By: Radha Mcintosh on 03-17-2023 Bilirubin [Mass/Vol] 0.3 mg/dL 0.3-1.0 [facility] Calciumon 03-17-2023 Calcium [Mass/Vol] 9.0 mg/dL Normal 8.6-10.3 [facility] Comment on above: Performed By: #### P HOS, FE, [id number], LILLIA[place], PTH, [place] ####[facility] [id number] [place] [id number] [facility] Calcium [Mass/volume] in Ser um or PlasmaOrdered By: Diony Singh on 03-17-2023 Calcium [Mass/Vol] 9.0 mg/dL 8.6-10.3 [facility] Carbon dioxide, total [Moles /volume] in Serum or PlasmaOrdered By: Radha Mcintosh on 03-17-2023 CO2 [Moles/Vol] 27.5 mmol/L 21.0-31.0 [facility] Chloride [Moles/volume] in S zakia or PlasmaOrdered By: Radha Mcintosh on 03-17-2023 Chloride [Moles/Vol] 104 mmol/L 98-107 [facility] Complete Blood Count Auto Di ffon 03-17-2023 Basophils (Bld) [#/Vol] 0.1 10*3/uL Normal 0.0-0.2 [facility] Comment on above: Order Comment: Reaso n for Exam Generalized Anxiety Disorder (SANDRA);Medication management Result Comment: PERF ORMED BY: [place] [address] PATHOLOGIST COMMUNICATION SPECIALIST WENDY CLARK M.D. Performed By: #### F OL, B12, HSCRP, ESR #### [facility] [address] [place] [address] #### WILL CHOICE, RA, LYME AB wRFX, SPE #### [facility] , Basophils/100 WBC (Bld) 0.8 % Normal . [facility] Comment on above: Order Comment: Reaso n for Exam Generalized Anxiety Disorder (SANDRA);Medication management Performed By: #### F OL, B12, HSCRP, ESR #### [facility] [address] [place] [address] [place] #### WILL CHOICE, RA, LYME AB wRFX, SPE #### [facility] , Eosinophils (Bld) [#/Vol] 0.1 10*3/uL Normal 0.0-0.45 [facility] Comment on above: Order Comment: Reaso n for Exam Generalized Anxiety Disorder (SANDRA);Medication management Performed By: #### F OL, B12, HSCRP, ESR #### [facility] [address] [place] [address] [place] #### WILL CHOICE, RA, LYME AB wRFX, SPE #### [facility] , Eosinophils/100 WBC (Bld) 1.5 % Normal . [facility] Comment on above: Order Comment: Reaso n for Exam Generalized Anxiety Disorder (SANDRA);Medication management Performed By: #### F OL, B12, HSCRP, ESR #### [facility] [address] [place] [address] [place] #### WILL CHOICE, RA, LYME AB wRFX, SPE #### [facility] , Erythrocyte distribution width (RBC) [Ratio] 15.2 % Normal 11.9-15.3 [facility] Comment on above: Order Comment: Reaso n for Exam Generalized Anxiety Disorder (SANDRA);Medication management Performed By: #### F OL, B12, HSCRP, ESR #### [place] [address] [place] #### WILL CHOICE, RA, LYME AB wRFX, SPE #### [facility] , Hematocrit (Bld) [Volume fraction] 39.4 % Normal 34.0-46.4 [facility] Comment on above: Order Comment: Reaso n for Exam Generalized Anxiety Disorder (SANDRA);Medication management Performed By: #### F OL, B12, HSCRP, ESR #### [place] [address] [place] #### WILL CHOICE, RA, LYME AB wRFX, SPE #### [facility] , Hemoglobin (Bld) [Mass/Vol] 13.1 g/dL Normal 11.8-15.4 [facility] Comment on above: Order Comment: Reaso n for Exam Generalized Anxiety Disorder (SANDRA);Medication management Performed By: #### F OL, B12, HSCRP, ESR #### [place] [address] [place] #### WILL CHOICE, RA, LYME AB wRFX, SPE #### [facility] , Lymphocytes (Bld) [#/Vol] 2.6 10*3/uL Normal 1.00-4.8 [facility] Comment on above: Order Comment: Reaso n for Exam Generalized Anxiety Disorder (SANDRA);Medication management Performed By: #### F OL, B12, HSCRP, ESR #### [place] [address] [place] #### WILL CHOICE, RA, LYME AB wRFX, SPE #### [facility] , Lymphocytes/100 WBC (Bld) 29.4 % Normal . [facility] Comment on above: Order Comment: Reaso n for Exam Generalized Anxiety Disorder (SANDRA);Medication management Performed By: #### F OL, B12, HSCRP, ESR #### [place] [address] [place] #### WILL CHOICE, RA, LYME AB wRFX, SPE #### [facility] , MCH (RBC) [Entitic mass] 29.0 pg Normal 24.7-34.3 [facility] Comment on above: Order Comment: Reaso n for Exam Generalized Anxiety Disorder (SANDRA);Medication management Performed By: #### F OL, B12, HSCRP, ESR #### [address] #### WILL CHOICE, RA, LYME AB wRFX, SPE #### [facility] , MCV (RBC) [Entitic vol] 87.0 fL Normal 80-100 [facility] Comment on above: Order Comment: Reaso n for Exam Generalized Anxiety Disorder (SANDRA);Medication management Performed By: #### F OL, B12, HSCRP, ESR #### [address] #### WILL CHOICE, RA, LYME AB wRFX, SPE #### [facility] , Mean Corpuscular HGB Conc 33.3 g/dL Normal 32.0-35.0 [facility] Comment on above: Order Comment: Reaso n for Exam Generalized Anxiety Disorder (SANDRA);Medication management Performed By: #### F OL, B12, HSCRP, ESR #### [place] [address] [place] #### WILL CHOICE, RA, LYME AB wRFX, SPE #### [facility] , Monocytes (Bld) [#/Vol] 0.5 10*3/uL Normal 0.0-0.8 [facility] Comment on above: Order Comment: Reaso n for Exam Generalized Anxiety Disorder (SANDRA);Medication management Performed By: #### F OL, B12, HSCRP, ESR #### [facility] [address] [place] [address] [place] #### WILL CHOICE, RA, LYME AB wRFX, SPE #### [facility] , Monocytes/100 WBC (Bld) 5.5 % Normal . [facility] Comment on above: Order Comment: Reaso n for Exam Generalized Anxiety Disorder (SANDRA);Medication management Performed By: #### F OL, B12, HSCRP, ESR #### [facility] [address] [place] [address] [place] #### WILL CHOICE, RA, LYME AB wRFX, SPE #### [facility] , Neutrophils (Bld) [#/Vol] 5.5 10*3/uL Normal 1.8-7.7 [facility] Comment on above: Order Comment: Reaso n for Exam Generalized Anxiety Disorder (SANDRA);Medication management Performed By: #### F OL, B12, HSCRP, ESR #### [facility] [address] [place] [address] [place] #### WILL CHOICE, RA, LYME AB wRFX, SPE #### [facility] , Neutrophils/100 WBC (Bld) 62.8 % Normal . [facility] Comment on above: Order Comment: Reaso n for Exam Generalized Anxiety Disorder (SANDRA);Medication management Performed By: #### F OL, B12, HSCRP, ESR #### [facility] [address] [place] [address] [place] #### WILL CHOICE, RA, LYME AB wRFX, SPE #### [facility] , NRBC% 0.1 /100{WBC} Normal 0-0.5 [facility] Comment on above: Order Comment: Reaso n for Exam Generalized Anxiety Disorder (SANDRA);Medication management Performed By: #### F OL, B12, HSCRP, ESR #### [facility] [address] [place] [address] [place] #### WILL CHOICE, RA, LYME AB wRFX, SPE #### [facility] , Platelet mean volume (Bld) [Entitic vol] 7.6 fL Normal 6.3-10.7 [facility] Comment on above: Order Comment: Reaso n for Exam Generalized Anxiety Disorder (SANDRA);Medication management Performed By: #### F OL, B12, HSCRP, ESR #### [place] [address] [place] #### WILL CHOICE, RA, LYME AB wRFX, SPE #### [facility] , Platelets (Bld) [#/Vol] 370 10*3/uL Normal 150-450 [facility] Comment on above: Order Comment: Reaso n for Exam Generalized Anxiety Disorder (SANDRA);Medication management Performed By: #### F OL, B12, HSCRP, ESR #### [address] #### WILL CHOICE, RA, LYME AB wRFX, SPE #### [facility] , RBC (Bld) [#/Vol] 4.53 10*6/uL Normal 3.60-5.00 [facility] Comment on above: Order Comment: Reaso n for Exam Generalized Anxiety Disorder (SANDRA);Medication management Performed By: #### F OL, B12, HSCRP, ESR #### [place] [address] [place] #### WILL CHOICE, RA, LYME AB wRFX, SPE #### [facility] , WBC (Bld) [#/Vol] 8.8 10*3/uL Normal 3.8-11.6 [facility] Comment on above: Order Comment: Reaso n for Exam Generalized Anxiety Disorder (SANDRA);Medication management Performed By: #### F OL, B12, HSCRP, ESR #### [place] [address] [place] #### WILL CHOICE, RA, LYME AB wRFX, SPE #### [facility] , Comprehensive Metabolic Pane soniya 03-17-2023 Albumin [Mass/Vol] 4.2 g/dL Normal 3.5-5.7 [facility] Comment on above: Order Comment: Reaso n for Exam Generalized Anxiety Disorder (SANDRA);Medication management Performed By: #### F OL, B12, HSCRP, ESR #### [address] #### WILL CHOICE, RA, LYME AB wRFX, SPE #### [facility] , Albumin/Globulin [Mass ratio] 1.5 {ratio} Normal [facility] Comment on above: Order Comment: Reaso n for Exam Generalized Anxiety Disorder (SANDRA);Medication management Performed By: #### F OL, B12, HSCRP, ESR #### [address] #### WILL CHOICE, RA, LYME AB wRFX, SPE #### [facility] , ALP [Catalytic activity/Vol] 66 U/L Normal 34-104 [facility] Comment on above: Order Comment: Reaso n for Exam Generalized Anxiety Disorder (SANDRA);Medication management Result Comment: PERF ORMED BY: [place] [address] PATHOLOGIST COMMUNICATION SPECIALIST WENDY CLARK M.D. Performed By: #### F OL, B12, HSCRP, ESR #### [place] [address] [place] #### WILL CHOICE, RA, LYME AB wRFX, SPE #### [facility] , ALT [Catalytic activity/Vol] 13 U/L Normal 7-52 [facility] Comment on above: Order Comment: Reaso n for Exam Generalized Anxiety Disorder (SANDRA);Medication management Performed By: #### F OL, B12, HSCRP, ESR #### [place] [address] [place] #### WILL CHOICE, RA, LYME AB wRFX, SPE #### [facility] , Anion gap [Moles/Vol] 11.6 mmol/L Normal 6.0-15.0 [facility] Comment on above: Order Comment: Reaso n for Exam Generalized Anxiety Disorder (SANDRA);Medication management Performed By: #### F OL, B12, HSCRP, ESR #### [facility] [address] [place] [address] #### WILL CHOICE, RA, LYME AB wRFX, SPE #### [facility] , AST [Catalytic activity/Vol] 11 U/L Low 13-39 [facility] Comment on above: Order Comment: Reaso n for Exam Generalized Anxiety Disorder (SANDRA);Medication management Performed By: #### F OL, B12, HSCRP, ESR #### [address] #### WILL CHOICE, RA, LYME AB wRFX, SPE #### [facility] , Bilirubin [Mass/Vol] 0.3 mg/dL Normal 0.3-1.0 [facility] Comment on above: Order Comment: Reaso n for Exam Generalized Anxiety Disorder (SANDRA);Medication management Performed By: #### F OL, B12, HSCRP, ESR #### [facility] [address] [place] [address] [place] #### WILL CHOICE, RA, LYME AB wRFX, SPE #### [facility] , Calcium [Mass/Vol] 8.9 mg/dL Normal 8.6-10.3 [facility] Comment on above: Order Comment: Reaso n for Exam Generalized Anxiety Disorder (SANDRA);Medication management Performed By: #### F OL, B12, HSCRP, ESR #### [place] [address] [place] #### WILL CHOICE, RA, LYME AB wRFX, SPE #### [facility] , Chloride [Moles/Vol] 104 mmol/L Normal 98-107 [facility] Comment on above: Order Comment: Reaso n for Exam Generalized Anxiety Disorder (SANDAR);Medication management Performed By: #### F OL, B12, HSCRP, ESR #### [address] #### WILL CHOICE, RA, LYME AB wRFX, SPE #### [facility] , CO2 [Moles/Vol] 27.5 mmol/L Normal 21.0-31.0 [facility] Comment on above: Order Comment: Reaso n for Exam Generalized Anxiety Disorder (SANDRA);Medication management Performed By: #### F OL, B12, HSCRP, ESR #### [place] [address] [place] #### WILL CHOICE, RA, LYME AB wRFX, SPE #### [facility] , Creatinine [Mass/Vol] 0.54 mg/dL Low 0.60-1.20 [facility] Comment on above: Order Comment: Reaso n for Exam Generalized Anxiety Disorder (SANDRA);Medication management Performed By: #### F OL, B12, HSCRP, ESR #### [address] #### WILL CHOICE, RA, LYME AB wRFX, SPE #### [facility] , GFR/1.73 sq M.predicted MDRD (S/P/Bld) [Vol rate/Area] mL/min/{1.73_m2} [facility] Comment on above: Order Comment: Reaso n for Exam Generalized Anxiety Disorder (SANDRA);Medication management Performed By: #### F OL, B12, HSCRP, ESR #### [place] [address] [place] #### WILL CHOICE, RA, LYME AB wRFX, SPE #### [facility] , Globulin (S) [Mass/Vol] 2.8 g/dL Normal [facility] Comment on above: Order Comment: Reaso n for Exam Generalized Anxiety Disorder (SANDRA);Medication management Performed By: #### F OL, B12, HSCRP, ESR #### [place] [address] [place] #### WILL CHOICE, RA, LYME AB wRFX, SPE #### [facility] , Glucose [Mass/Vol] 79 mg/dL Normal 70-100 [facility] Comment on above: Order Comment: Reaso n for Exam Generalized Anxiety Disorder (SANDRA);Medication management Result Comment: [facility] Glucose Reference Range is dependent on time and content of last meal. Glucose of more than 200 mg/dL in a nonstressed, ambulatory subject supports the diagnosis of Diabetes Mellitus. ADA recommended reference range Performed By: #### F OL, B12, HSCRP, ESR #### [place] [address] [place] #### WILL CHOICE, RA, LYME AB wRFX, SPE #### [facility] , Potassium [Moles/Vol] 4.1 mmol/L Normal 3.5-5.1 [facility] Comment on above: Order Comment: Reaso n for Exam Generalized Anxiety Disorder (SANDRA);Medication management Performed By: #### F OL, B12, HSCRP, ESR #### [place] [address] [place] #### WILL CHOICE, RA, LYME AB wRFX, SPE #### [facility] , Protein [Mass/Vol] 7.0 g/dL Normal 6.4-8.9 [facility] Comment on above: Order Comment: Reaso n for Exam Generalized Anxiety Disorder (SANDRA);Medication management Performed By: #### F OL, B12, HSCRP, ESR #### [place] [address] [place] #### WILL CHOICE, RA, LYME AB wRFX, SPE #### [facility] , Sodium [Moles/Vol] 139 mmol/L Normal 136-145 [facility] Comment on above: Order Comment: Reaso n for Exam Generalized Anxiety Disorder (SANDRA);Medication management Performed By: #### F OL, B12, HSCRP, ESR #### [place] [address] [place] #### WILL CHOICE, RA, LYME AB wRFX, SPE #### [facility] , Urea nitrogen [Mass/Vol] 9 mg/dL Normal 7-25 [facility] Comment on above: Order Comment: Reaso n for Exam Generalized Anxiety Disorder (SANDRA);Medication management Performed By: #### F OL, B12, HSCRP, ESR #### [facility] [address] #### WILL CHOICE, RA, LYME AB wRFX, SPE #### [facility] , Creatinine [Mass/volume] in Serum or PlasmaOrdered By: Radha Mcintosh on 03-17-2023 Creatinine [Mass/Vol] 0.54 mg/dL 0.60-1.20 [facility] Eosinophils Auto (Bld) [#/Vo l]Ordered By: Radha Mcintosh on 03-17-2023 Eosinophils (Bld) [#/Vol] 0.1 10*3/uL 0.0-0.45 [facility] Eosinophils/100 WBC Auto (Bl d)Ordered By: Radha Mcintosh on 03-17-2023 Eosinophils/100 WBC (Bld) 1.5 % . [facility] Erythrocyte distribution wid th Auto (RBC) [Ratio]Ordered By: Radha Mcintosh on 03-17-2023 Erythrocyte distribution width (RBC) [Ratio] 15.2 % 11.9-15.3 [facility] Ferritinon 03-17-2023 Ferritin [Mass/Vol] 66.4 ng/mL Normal 11.0-306.8 [facility] Comment on above: Performed By: #### P HOS, FE, [id number], LILL[place], PTH, [place] ####[facility] [id number] Ferritin [Mass/volume] in Se rum or PlasmaOrdered By: Diony Singh on 03-17-2023 Ferritin [Mass/Vol] 66.4 ng/mL 11.0-306.8 [facility] Folate [Mass/volume] in Seru m or PlasmaOrdered By: Diony Singh on 03-17-2023 Folate [Mass/Vol] 27.0 ng/mL >5.9 [facility] Comment on above: Folate reference ran ge: >5.9 ng/mlThe WHO technical consultation on folate and vitamin [id number] has determined that folate concentrations lessthan 4 ng/ml are considered deficient. Globulin Calc (S) [Mass/Vol] Ordered By: Radha Mcitnosh on 03-17-2023 Globulin (S) [Mass/Vol] 2.8 g/dL [facility] Glucose [Mass/volume] in Ser um or PlasmaOrdered By: Radha Mcintosh on 03-17-2023 Glucose [Mass/Vol] 79 mg/dL 70-100 [facility] Comment on above: ADA recommended refe rence rangeRandom Glucose Reference Range is dependent on time and content of last meal. Glucose of more than 200 mg/dL in a nonstressed, ambulatory subject supports the diagnosis of Diabetes Mellitus. Hematocrit Auto (Bld) [Volum e fraction]Ordered By: Radha Mcintosh on 03-17-2023 Hematocrit (Bld) [Volume fraction] 39.4 % 34.0-46.4 [facility] Hemoglobin [Mass/volume] in BloodOrdered By: Radha Mcintosh on 03-17-2023 Hemoglobin (Bld) [Mass/Vol] 13.1 g/dL 11.8-15.4 [facility] Ironon 03-17-2023 Iron [Mass/Vol] 40 ug/dL Low 50-212 [facility] Comment on above: Performed By: #### P HOS, FE, [id number], LILLIANA, PTH, CA ####[facility] [id number] [facility] Iron [Mass/volume] in Serum or PlasmaOrdered By: Diony Singh on 03-17-2023 Iron [Mass/Vol] 40 ug/dL 50-212 [facility] Leukocytes [#/volume] correc emily for nucleated erythrocytes in Blood by Automated counOrdered By: Radha Mcintosh on 03-17-2023 WBC corrected for nucl RBC Auto (Bld) [#/Vol] 8.8 10*3/uL 3.8-11.6 [facility] Lymphocytes Auto (Bld) [#/Vo l]Ordered By: Radha Mcintosh on 03-17-2023 Lymphocytes (Bld) [#/Vol] 2.6 10*3/uL 1.00-4.8 [facility] Lymphocytes/100 WBC Auto (Bl d)Ordered By: Radha Mcintosh on 03-17-2023 Lymphocytes/100 WBC (Bld) 29.4 % . [facility] MCH Auto (RBC) [Entitic mass ]Ordered By: Radha Mcintosh on 03-17-2023 MCH (RBC) [Entitic mass] 29.0 pg 24.7-34.3 [facility] MCHC Auto (RBC) [Mass/Vol]Or dered By: Radha Mcintosh on 03-17-2023 MCHC (RBC) [Mass/Vol] 33.3 g/dL 32.0-35.0 [facility] MCV Auto (RBC) [Entitic vol] Ordered By: Radha Mcintosh on 03-17-2023 MCV (RBC) [Entitic vol] 87.0 fL 80-100 [facility] Monocytes Auto (Bld) [#/Vol] Ordered By: Radha Mcintosh on 03-17-2023 Monocytes (Bld) [#/Vol] 0.5 10*3/uL 0.0-0.8 [facility] Monocytes/100 WBC Auto (Bld) Ordered By: Radha Mcintosh on 03-17-2023 Monocytes/100 WBC (Bld) 5.5 % . [facility] Neutrophils Auto (Bld) [#/Vo l]Ordered By: Radha Mcintosh on 03-17-2023 Neutrophils (Bld) [#/Vol] 5.5 10*3/uL 1.8-7.7 [facility] Neutrophils/100 WBC Auto (Bl d)Ordered By: Radha Mcintosh on 03-17-2023 Neutrophils/100 WBC (Bld) 62.8 % . [facility] No Panel InformationOrdered By: Radha Mcintosh on 03-17-2023 Estimated GFR (CKD-EPI) > 60.0 mL/Min [facility] Creatinine Clearance (Chem N/A [facility] Nucleated erythrocytes [Pres ence] in Blood by Automated countOrdered By: Radha Mcintosh on 03-17-2023 Nucleated RBC Auto Ql (Bld) 0.1 /100{WBC} 0-0.5 [facility] Parathyrin.intact [Mass/volu me] in Serum or PlasmaOrdered By: Diony Singh on 03-17-2023 Parathyrin.intact [Mass/Vol] 46.2 pg/mL [facility] Parathyroid Hormone Intacton 03-17-2023 Parathyroid Hormone Intact 46.2 pg/mL Normal [facility] Comment on above: Result Comment: PERF ORMED BY: [facility] [address] [place] [address] PATHOLOGIST COMMUNICATION SPECIALIST WENDY CLARK M.D. Performed By: #### P HOS, FE, [id number], LILLIANA, PTH, CA ####[facility] [id number] [place] [address] [facility] Phosphate [Mass/volume] in S zakia or PlasmaOrdered By: Diony Singh on 03-17-2023 Phosphate [Mass/Vol] 4.0 mg/dL 3.7-7.2 [facility] Phosphoruson 03-17-2023 Phosphate [Mass/Vol] 4.0 mg/dL Normal 3.7-7.2 [facility] Comment on above: Performed By: #### P HOS, FE, [id number], LILLIANA, PTH, CA ####[address] [place] [address] [facility] Platelet mean volume Auto (B ld) [Entitic vol]Ordered By: Radha Mcintosh on 03-17-2023 Platelet mean volume (Bld) [Entitic vol] 7.6 fL 6.3-10.7 [facility] Platelets Auto (Bld) [#/Vol] Ordered By: Radha Mcintosh on 03-17-2023 Platelets (Bld) [#/Vol] 370 10*3/uL 150-450 [facility] Potassium [Moles/volume] in Serum or PlasmaOrdered By: Radha Mcintosh on 03-17-2023 Potassium [Moles/Vol] 4.1 mmol/L 3.5-5.1 [facility] Protein [Mass/volume] in Ser um or PlasmaOrdered By: Radha Mcintosh on 03-17-2023 Protein [Mass/Vol] 7.0 g/dL 6.4-8.9 [facility] RBC Auto (Bld) [#/Vol]Ordere d By: Radha Mcintosh on 03-17-2023 RBC (Bld) [#/Vol] 4.53 10*6/uL 3.60-5.00 [facility] Serum or plasma 25-hydroxyca lciferol measurement (mass/volume)Ordered By: Radha Mcintosh on 03-17-2023 25-hydroxyvitamin D2 [Mass/Vol] <1.0 ng/mL . [facility] Comment on above: This test was develo ped and its performance characteristicsdetermined by [facility]. It has not been cleared or approvedby the Food and Drug Administration. Serum or plasma 25-hydroxyvi tamin D measurement (mass/volume)Ordered By: Radha Mcintosh on 03-17-2023 25-hydroxyvitamin D [Mass/Vol] 47 ng/mL . [facility] Comment on above: Reference Range:All Ages: Target levels 30 - 100 Serum or plasma albumin/glob ulin mass ratioOrdered By: Radha Mcintosh on 03-17-2023 Albumin/Globulin [Mass ratio] 1.5 {ratio} [facility] Serum or plasma anion gap de terminationOrdered By: Radha Micntosh on 03-17-2023 Anion gap [Moles/Vol] 11.6 mmol/L 6.0-15.0 [facility] Serum or plasma calcidiol me asurement (mass/volume)Ordered By: Radha Mcintosh on 03-17-2023 25-hydroxyvitamin D3 [Mass/Vol] 47 ng/mL . [facility] Comment on above: This test was develo ped and its performance characteristicsdetermined by [facility]. It has not been cleared or approvedby the Food and Drug Administration.Performed at: [facility] [address] [place] [address] [id number] Director: Kenji Malone MD, Phone: [phone] Sodium [Moles/volume] in Ser um or PlasmaOrdered By: Radha Mcintosh on 03-17-2023 Sodium [Moles/Vol] 139 mmol/L 136-145 [facility] Urea nitrogen [Mass/volume] in Serum or PlasmaOrdered By: Radha Mcintosh on 03-17-2023 Urea nitrogen [Mass/Vol] 9 mg/dL 7-25 [facility] Vit. B12/Folate Profileon Cobalamin (Vitamin B12) [Mass/Vol] 478 pg/mL Normal 180-914 [facility] Comment on above: Performed By: #### P HOS, FE, [id number], LILLIANA, PTH, CA ####[facility] Folate 27.0 ng/mL Normal >5.9 [facility] Comment on above: Result Comment: Janel te reference range: >5.9 ng/ml The WHO technical consultation on folate and vitamin b12 deficiencies has determined that folate concentrations less than 4 ng/ml are considered deficient. PERFORMED BY: [facility] [address] [place] [address] PATHOLOGIST COMMUNICATION SPECIALIST WENDY CLARK M.D. Performed By: #### P HOS, FE, [id number], LILLIANA, PTH, [place] ####[address] Vitamin B12 ser/plasOrdered By: Diony Singh on 03-17-2023 Cobalamin (Vitamin B12) [Mass/Vol] 478 pg/mL 180-914 [facility] Vitamin D 25 Hydroxy,Tot+D2+ D3on 03-17-2023 [facility] Vitamin D 25 [place] 47 ng/mL Normal . [facility] Comment on above: Order Comment: Reaso n for Exam Generalized Anxiety Disorder (SANDRA);Medication management Result Comment: Refe rence Range: All Ages: Target levels 30 - 100 Performed By: #### F OL, B12, HSCRP, ESR #### [facility] [address] #### WILL CHOICE, RA, LYME AB wRFX, SPE #### [facility] , Vitamin D-2 <1.0 Normal . [facility] Comment on above: Order Comment: Reaso n for Exam Generalized Anxiety Disorder (SANDRA);Medication management Result Comment: This test was developed and its performance characteristics determined by [facility]. It has not been cleared or approved by the Food and Drug Administration. Performed By: #### F OL, B12, HSCRP, ESR #### [facility] [address] [place] [address] [place] #### WILL CHOICE, RA, LYME AB wRFX, SPE #### [facility] , Vitamin D-3 47 ng/mL Normal . [facility] Comment on above: Order Comment: Reaso n for Exam Generalized Anxiety Disorder (SANDRA);Medication management Result Comment: This test was developed and its performance characteristics determined by [facility]. It has not been cleared or approved by the Food and Drug Administration. Performed at: [facility] [address] [place] [id number] [employer] Operator Adjuster: Kenji Malone MD, Phone: [phone] PERFORMED BY: [place] [address] PATHOLOGIST COMMUNICATION SPECIALIST WENDY CLARK M.D. Performed By: #### F OL, B12, HSCRP, ESR #### [facility] [address] [place] [address] #### WILL CHOICE, RA, LYME AB wRFX, SPE #### [facility] , WBC Auto (Bld) [#/Vol]Ordere d By: Radha Mcintosh on 03-17-2023 WBC (Bld) [#/Vol] 8.8 10*3/uL 3.8-11.6 [facility] Family Medicine Office/Clini c Noteon 03-14-2023 Family Medicine Office/Clinic Note Chief Complaint est. care HPI Staff Patient here to est. care Establish Care: History: Last provider:Awa Any recent labs:Due Health Maintenance UTD: Colonoscopy:03/29/20 23 PSA:N/A Mammogram:12/10/21 Pelvic/Pap: Acute: Current issues/complaints: concerned about mold exposure, and microtoxins. Testing? States seeing Radha Mcintosh for psychiatric care. History of Present Illness 47 Years old Female here for NEW TO ME last seen wAa. chronic care f/u-TM This patient is NEW TO ME Previous PCP was Dr. Donya Billings Last appt with previous PCP was November 24 Social: The patient is not ; her partner, Katie, works at [employer] The patient is NOT currently working; disability for back, fibromyalgia and depression - 8 years The patient has 4 children; 29, 28, 19, 16 Colon Cancer screening: colonoscopy is planned for later this month --> 7 years ago Breast cancer screenin/22 Pap smear: s/p hysterectomy with cervix removal DEXA: age Labs: done at [facility] List of Providers: [place] [facility] [place] / [facility] staff / Chief Complaint confirmed with the [...] 02/03/23 - message re-fax pysch referral to [facility] 02/02/23 - urology - [facility] - [...] psychiatry due to increasing anxiety [place]/23 [place] [facility] [place] SO[place] 01/05/23 - ED uncontrolled blood pressure, and concern of DVT I may have over reacted 01/04/23 - raya Saeed palpitations - not tolerating metoprolol --> changed to diltiazem leg pain - CTA negative --> requesting US of her leg HTN - BP is well controlled 12/30/22 [place] [facility] [place] uncontrolled BP 12/23/22 - cardiology - [place] palpitations - hx of abnormal 30 day event monitor requesting second opinion due to recent fatal [place] in her 42 y/o brother regular chest [...] cardiology appt in [place] requesting [place] [facility] [place]/08/22 [place] [facility] [place] - cardiology palpitations/ SOB - echo and stress test negative 11/24/22 - message requestin rheum referral to Dr. Cadet because she doesn't drive on high [email or web address] 11/11/22 - PCP - Dr. Donya Billings anxiety - xanax PRN insomnia - continue melatonin noted rx for temazepam metoprolol rx 11/05/22 - [facility] [place] chest pain LABS Cr/eGFR: No qualifying data available. A1c: No qualifying data available. TSH: No qualifying data available. Vit D: No qualifying data available. LDL: No qualifying data available. Lipids: No qualifying data available. Microalbumin: No qualifying data available. INR: No qualifying data available. Testosterone: No qualifying data available. Free and total testosterone: No qualifying data available. Future Appointments [facility] Quinn Appt. Date: 03/11/2023 8:40 AM Scheduled Provider: Diony Singh DO [address] [place], [place], [id number] Phone: -- Fax: -- [facility]: 04/11/2023 10:00 AM Scheduled Provider: [place], [address] Phone: [phone] Fax: [phone] [facility] Quinn Appt. Date: 11/16/2023 1:00 PM Scheduled Provider: BRIAN [facility] [employer] Phone: -- Fax: -- PHYSICAL EXAM Constitutional: Vital signs reviewed; LUPE PICKARD is well nourished, no acute distress - _ Head: Atraumatic, normocephalic Eye: EOMI, normal conjunctiva ENT: Moist oral mucosa, external inspection of ears and nose is unremarkable Neck: Trachea is midline, no tenderness Lungs: Cl (more content not included)... Normal [facility] Comment on above: Result Comment: Elec tronically Signed By: Diony Singh DO\Date and Time Signed: 03/14/23 14:15 EDT Family Medicine Office/Clinic Note Chief Complaint est. care HPI Staff Patient here to est. care Establish Care: History: Last provider:Awa Any recent labs:Due Health Maintenance UTD: Colonoscopy:03/29/20 PSA:N/A Mammogram:12/10/21 Pelvic/Pap: Acute: Current issues/complaints: concerned [...] she recently stopped tramadol and is on Bruni, which subsequently ended her use of benzodiazepines. [...] 1 month 2. Medication management (Z79.899: Other [facility] (current) drug therapy) Long list of medications Currently on Bruni for back pain; recently removed from tramadol and benzodiazepines Started with research neuropsychologist who started lexapro, propanolol, and hydroxyzine regimen [...] No qualifying (more content not included)... Normal [facility] Comment on above: Result Comment: Elec [...] physician if questions or concerns acetaminophen (Tylenol) acetaminophen-hydroc odone (Bruni 5/325 Tab) alprazolam (alprazolam 0.5 mg Tab) [...] PM EST With: Diony Singh DO Where: [facility] Invalid Interpretation Code [address] [place] [address]-\.br\ Tuesday 1:00 PM EDT \.br\ With:\.br\ Where: [facility] Consent for Treatmenton 02-27 Consent for Treatment [id number] #[id number] Normal [facility] Heart and Vascular Office/Cl inic Noteon 03-08-2023 [...] Would consider study adequate. Reviewed strips from [employer]- no arrhythmia. Will repeat a 30 day event monitor Continue current medications for now Portions of this record may have been created with voice recognition artificial intelligence software, specifically Lollipuff, Ahonya and or FABPulous. Substitutions may have occurred due to the inherent limitations of voice recognition and artificial intelligence software. Follow-up With When Contact Information SANTY PELAYO, Franklyn [place] [address] [phone] Additional Instructions: 4-6 weeks Problem List/Past Medical [...] hours Cap-ER, (more content not included)... Normal [facility] Comment on above: Result Comment: Elec tronically Signed By: Roula SAEED CNP\.chanel\Date and Time Signed: 03/08/23 14:35 EDT Free T4 (Free Thyroxine)on 0 02-17-2023 Free T4 [Mass/Vol] 0.87 ng/dL Normal 0.61-1.12 [facility] Comment on above: Performed By: #### F OL, B12, HSCRP, ESR #### [address] #### WILL CHOICE, RA, LYME AB wRFX, SPE #### [facility] , Thyroid Stimulating Hormoneo n 02-17-2023 TSH Qn 0.24 m[IU]/L Low 0.45-5.33 [facility] Comment on above: Result Comment: PERF ORMED BY: [place] [address] PATHOLOGIST COMMUNICATION SPECIALIST WENDY CLARK M.D. Performed By: #### F OL, B12, HSCRP, ESR #### [facility] [address] [place] [address] [place] #### WILL CHOICE, RA, LYME AB wRFX, SPE #### [facility] , Thyrotropin [Units/volume] i n Serum or PlasmaOrdered By: Kenyetta Dove on 02-17-2023 TSH Qn 0.24 m[IU]/L 0.45-5.33 [facility] Thyroxine (T4) free [Mass/vo lume] in Serum or PlasmaOrdered By: Kenyetta Dove on 02-17-2023 Free T4 [Mass/Vol] 0.87 ng/dL 0.61-1.12 [facility] Triiodothyronine (T3) Freeon 02-17-2023 Triiodothyronine (T3) Free 3.89 pg/mL Normal 2.50-3.90 [facility] Comment on above: Result Comment: PERF ORMED BY: [place] [address] PATHOLOGIST COMMUNICATION SPECIALIST WENDY CLARK M.D. Performed By: #### F OL, B12, HSCRP, ESR #### [facility] [address] #### WILL CHOICE, RA, LYME AB wRFX, SPE #### [facility] , Triiodothyronine (T3) Free [ Mass/volume] in Serum or PlasmaOrdered By: Kenyetta Dove on 02-17-2023 Free T3 [Mass/Vol] 3.89 pg/mL 2.50-3.90 [facility] Consent for Treatmenton 01-29 Consent for Treatment [id number] #1.00CD:127 Normal [facility] Physician Orderon 02-16-2023 Physician Order [id number]#1.00CD:127 Normal [facility] NM Myocardial Spect Part 2on 02-09-2023 NM [...] (Electronic Signature): 02/09/2023 12:28 pm Signed by: Brayan PELAYO, Owen Brown Transcribed by: addison Technologist: MADDI Technical Comments NM Myocardial Spect Part 2: Please See Report for NM Myocardial Spect Rest/Stress 2 Day Stress Dose (mCi Tc99M Cardiolite): 29.1 NM Myocardial Spect Rest/Stress 2 Day: Rest Dose (mCi Tc99m Cardiolite): 29.1 Normal [facility] Patient Educationon 02-03-20 Patient Education Obstetrics and Gynecology Overactive Bladder, Adult Overactive bladder is a [...] health care provider. General instructions ? Take [id number]-[id number] and prescription medicines only as told by [...] monitor yo (more content not included)... Normal [facility] Urology Office/Clinic Noteon 02-02-2023 Urology Office/Clinic [...] time for her next Botox dose. Ordered: 18972 Measure Post Void residual urine and/or bladder capacity by US- non-imaging E&M of Est. Patient Moderate 30-39 Min 16813 Follow-up With When Contact Information ALLYSSA TREJO PA-C, URL Only if needed [address] [place] [address] Business (1) Additional Instructions: Call [...] Social History (more content not included)... Normal [facility] Comment on above: Result Comment: Elec [...] She had been a former Dr. Daniela C patient. Recently established with Dr. Madera for further evaluation of chest pain, palpitations, and difficult to control hypertension. MD ordered echocardiogram and stress testing. Unfortunately, patient was seen at [facility] ER for elevated blood pressure and palpitations. [...] Patient had a recent elevated D-dimer at [facility] ER, her chest CTA was negative. Patient [...] With When Contact Information R[place] [address]- [phone] Additional Instructions: Keep previously scheduled appointment Dr. [...] 1 tab (more content not included)... Normal [facility] Comment on above: Result Comment: Elec tronically Signed By: Roula SAEED CNP.chanel\Date and Time Signed: 01/31/23 14:27 EDT Physician Referralon 023 Physician Referral [id number]# 1.00CD:127 [facility] Physician Referral [id number]# 1.00CD:127 [facility] Sleep Studieson 01-28-2023 Sleep Studies [id number] #1.00CD:127 [facility] Consent for Treatmenton 12-30 Consent for Treatment [id number] #1.00CD:127 [facility] Heart and Vascular Office/Cl inic Noteon 01-27-2023 Heart and Vascular Office/Clinic Note History of Present Illness Patient is a very pleasant 47-year-old morbidly obese nondiabetic female with a history of fibromyalgia, GERD, former smoker quit more than 30 years ago, referred to our office for palpitations. Patient was originally referred to [facility] with Dr. Ross and she provided several [...] was told it was okay by her tin plater. Given the patient's family history of heart disease she wanted a second opinion. The patient went to the emergency room in the recent past and [facility] where her blood pressure was found to [...] Symptomatic PVCs (more content not included)... Normal [facility] Comment on above: Result Comment: Elec tronically Signed By: SANTY PELAYO, Franklyn Arias\.br\Date and Time Signed: 01/27/23 13:54 EDT Physician Orderon 01-27-2023 Physician Order [id number] #1.00CD:127 Normal [facility] Stress EKG Tracingson 2022 Stress EKG Tracings [id number]#1.00CD:127 Normal [facility] Ambulatory Visit Summaryon 0 01-26-2023 Ambulatory Visit Summary LUPE PICKARD :1975 Visit Date:01/26/2023 Ambulatory Visit Instructions Your [...] Follow-Up Appointments 2022 1:15 PM EDT With: Franklyn MADERA MD Where: [facility]iology Clinic Tuesday 8:30 AM EDT With: ALLYSSA TREJO PA-C Where: [facility] Invalid Interpretation Code [address] [place] [address]-\.br\ Tuesday 1:00 PM EDT \.br\ With:\.br\ Where: [facility] Patient Educationon 01-27-20 23 Patient Education Mental and Behavioral Health Mindfulness-Based Stress Reduction Mindfulness-based stress reduction [...] or l (more content not included)... Normal [facility] US venous duplex LE on US venous duplex [facility] [place] [address] [place] [address] Ultrasound Report Signed Patient: Lupe Pickard MR#: [id number] : 1975 Acct:[id number] Age/Sex: 47 / F ADM Date: 01/24/23 Loc: ER Room: Type: [facility] ER Attending Dr: Ordering Provider: Yogi Mcgraw DO Date of Service: 01/24/23 US/US venous duplex LT: r/o DVT Copies to: Yoig Mcgraw DO LEFT LOWER EXTREMITY VENOUS DUPLEX INDICATION: Left leg pain and tenderness. Recent long flight from [place]. Unilateral left lower extremity venous duplex Doppler study was obtained utilizing B-mode, color- flow and spectral Doppler. FINDINGS: The left common femoral, femoral, and popliteal veins showed adequate compressibility, color-flow and augmentation. The left posterior tibial and peroneal veins were compressible, as well as proximal greater saphenous vein. The contralateral right common femoral vein was compressible with color-flow and augmentation. US/US venous duplex [facility] IMPRESSION: NO EVIDENCE OF DEEP VENOUS THROMBOSIS IN THE LEFT LOWER EXTREMITY. NO SUPERFICIAL THROMBOPHLEBITIS WAS NOTED. Impression dictated by: Yogi Redding MD01/25/2023 10:05 AM Dictation Location: [id number] Tech: Linda Andrew Transcribed By: BOB 01/25/23 1005 Dictated By: Yogi Redding MD 01/25/23 1004 Signed By: 01/25/23 1005 [facility] Activated partial thrombopla stin time (aPTT) in platelet poor plasma by coagulation aOrdered By: Laz Lobo on 01-24-2023 aPTT Coag (PPP) [Time] 29.9 s 25.1-36.5 [facility] B-Type Natriuretic Peptideon 01-24-2023 Natriuretic peptide B (Bld) [Mass/Vol] 37.0 pg/mL Normal 5-100 [facility] Comment on above: Result Comment: PERF ORMED BY: [place] [address] PATHOLOGIST COMMUNICATION SPECIALIST WENDY CLARK M.D. Performed By: #### F OL, B12, HSCRP, ESR #### [address] #### WILL CHOICE, RA, LYME AB wRFX, SPE #### [facility] , Basic Metabolic Panelon 12-29 Anion gap [Moles/Vol] 8.8 mmol/L Normal 6.0-15.0 [facility] Comment on above: Performed By: #### F OL, B12, HSCRP, ESR #### [facility] [address] [place] [address] #### WILL CHOICE, RA, LYME AB wRFX, SPE #### [facility] , Calcium [Mass/Vol] 8.7 mg/dL Normal 8.6-10.3 [facility] Comment on above: Performed By: #### F OL, B12, HSCRP, ESR #### [facility] [address] [place] [address] [place] #### WILL CHOICE, RA, LYME AB wRFX, SPE #### [facility] , Chloride [Moles/Vol] 105 mmol/L Normal 98-107 [facility] Comment on above: Performed By: #### F OL, B12, HSCRP, ESR #### [place] [address] [place] #### WILL CHOICE, RA, LYME AB wRFX, SPE #### [facility] , CO2 [Moles/Vol] 29.0 mmol/L Normal 21.0-31.0 [facility] Comment on above: Performed By: #### F OL, B12, HSCRP, ESR #### [facility] [address] [place] [address] #### WILL CHOICE, RA, LYME AB wRFX, SPE #### [facility] , Creatinine [Mass/Vol] 0.57 mg/dL Low 0.60-1.20 [facility] Comment on above: Performed By: #### F OL, B12, HSCRP, ESR #### [facility] [address] [place] [address] #### WILL CHOICE, RA, LYME AB wRFX, SPE #### [facility] , Creatinine Clr Calc Pharmacy 169.33 [facility] Comment on above: Result Comment: PERF ORMED BY: [place] [address] PATHOLOGIST COMMUNICATION SPECIALIST WENDY CLARK M.D. Performed By: #### F OL, B12, HSCRP, ESR #### [facility] [address] [place] [address] #### WILL CHOICE, RA, LYME AB wRFX, SPE #### [facility] , GFR/1.73 sq M.predicted MDRD (S/P/Bld) [Vol rate/Area] mL/min/{1.73_m2} [facility] Comment on above: Performed By: #### F OL, B12, HSCRP, ESR #### [address] #### WILL CHOICE, RA, LYME AB wRFX, SPE #### [facility] , Glucose [Mass/Vol] 110 mg/dL High 70-100 [facility] Comment on above: Result Comment: [place] Glucose Reference Range is dependent on time and content of last meal. Glucose of more than 200 mg/dL in a nonstressed, ambulatory subject supports the diagnosis of Diabetes Mellitus. ADA recommended reference range Performed By: #### F OL, B12, HSCRP, ESR #### [facility] [address] [place] [address] [place] #### WILL CHOICE, RA, LYME AB wRFX, SPE #### [facility] , Potassium [Moles/Vol] 3.8 mmol/L Normal 3.5-5.1 [facility] Comment on above: Performed By: #### F OL, B12, HSCRP, ESR #### [place] [address] [place] #### WILL CHOICE, RA, LYME AB wRFX, SPE #### [facility] , Sodium [Moles/Vol] 139 mmol/L Normal 136-145 [facility] Comment on above: Performed By: #### F OL, B12, HSCRP, ESR #### [facility] [address] [place] [address] [place] #### WILL CHOICE, RA, LYME AB wRFX, SPE #### [facility] , Urea nitrogen [Mass/Vol] 7 mg/dL Normal 7-25 [facility] Comment on above: Performed By: #### F OL, B12, HSCRP, ESR #### [facility] [address] [place] [address] [place] #### WILL CHOICE, RA, LYME AB wRFX, SPE #### [facility] , Basophils Auto (Bld) [#/Vol] Ordered By: Laz Lobo on 01-24-2023 Basophils (Bld) [#/Vol] 0.1 10*3/uL 0.0-0.2 [facility] Basophils/100 WBC Auto (Bld) Ordered By: Laz Lobo on 01-24-2023 Basophils/100 WBC (Bld) 0.7 % . [facility] Bilirubin Test strip Ql (U)O rdered By: Laz Lobo on 01-24-2023 Bilirubin Ql (U) Negative Negative [facility] Calcium [Mass/volume] in Ser um or PlasmaOrdered By: Laz Lobo on 01-24-2023 Calcium [Mass/Vol] 8.7 mg/dL 8.6-10.3 [facility] Carbon dioxide, total [Moles /volume] in Serum or PlasmaOrdered By: Laz Lobo on 01-24-2023 CO2 [Moles/Vol] 29.0 mmol/L 21.0-31.0 [facility] Chloride [Moles/volume] in S zakia or PlasmaOrdered By: Laz Lobo on 01-24-2023 Chloride [Moles/Vol] 105 mmol/L 98-107 [facility] Color Auto (U)Ordered By: Elsa Lobo on 01-24-2023 Color (U) Yellow Yellow [facility] Complete Blood Count Auto Di ffon 01-24-2023 Basophils (Bld) [#/Vol] 0.1 10*3/uL Normal 0.0-0.2 [facility] Comment on above: Result Comment: PERF ORMED BY: [place] [address] PATHOLOGIST COMMUNICATION SPECIALIST WENDY CLARK M.D. Performed By: #### F OL, B12, HSCRP, ESR #### [address] #### WILL CHOICE, RA, LYME AB wRFX, SPE #### [facility] , Basophils/100 WBC (Bld) 0.7 % Normal . [facility] Comment on above: Performed By: #### F OL, B12, HSCRP, ESR #### [facility] [address] [place] [address] #### WILL CHOICE, RA, LYME AB wRFX, SPE #### [facility] , Eosinophils (Bld) [#/Vol] 0.1 10*3/uL Normal 0.0-0.45 [facility] Comment on above: Performed By: #### F OL, B12, HSCRP, ESR #### [place] [address] [place] #### WILL CHOICE, RA, LYME AB wRFX, SPE #### [facility] , Eosinophils/100 WBC (Bld) 1.6 % Normal . [facility] Comment on above: Performed By: #### F OL, B12, HSCRP, ESR #### [place] [address] [place] #### WILL CHOICE, RA, LYME AB wRFX, SPE #### [facility] , Erythrocyte distribution width (RBC) [Ratio] 14.5 % Normal 11.9-15.3 [facility] Comment on above: Performed By: #### F OL, B12, HSCRP, ESR #### [place] [address] [place] #### WILL CHOICE, RA, LYME AB wRFX, SPE #### [facility] , Hematocrit (Bld) [Volume fraction] 39.8 % Normal 34.0-46.4 [facility] Comment on above: Performed By: #### F OL, B12, HSCRP, ESR #### [address] #### WILL CHOICE, RA, LYME AB wRFX, SPE #### [facility] , Hemoglobin (Bld) [Mass/Vol] 13.2 g/dL Normal 11.8-15.4 [facility] Comment on above: Performed By: #### F OL, B12, HSCRP, ESR #### [place] [address] [place] #### WILL CHOICE, RA, LYME AB wRFX, SPE #### [facility] , Lymphocytes (Bld) [#/Vol] 2.0 10*3/uL Normal 1.00-4.8 [facility] Comment on above: Performed By: #### F OL, B12, HSCRP, ESR #### [place] [address] [place] #### WILL CHOICE, RA, LYME AB wRFX, SPE #### [facility] , Lymphocytes/100 WBC (Bld) 26.6 % Normal . [facility] Comment on above: Performed By: #### F OL, B12, HSCRP, ESR #### [address] #### WILL CHOICE, RA, LYME AB wRFX, SPE #### [facility] , MCH (RBC) [Entitic mass] 28.8 pg Normal 24.7-34.3 [facility] Comment on above: Performed By: #### F OL, B12, HSCRP, ESR #### [address] #### WILL CHOICE, RA, LYME AB wRFX, SPE #### [facility] , MCV (RBC) [Entitic vol] 86.8 fL Normal 80-100 [facility] Comment on above: Performed By: #### F OL, B12, HSCRP, ESR #### [address] #### WILL CHOICE, RA, LYME AB wRFX, SPE #### [facility] , Mean Corpuscular HGB Conc 33.1 g/dL Normal 32.0-35.0 [facility] Comment on above: Performed By: #### F OL, B12, HSCRP, ESR #### [address] #### WILL CHOICE, RA, LYME AB wRFX, SPE #### [facility] , Monocytes (Bld) [#/Vol] 0.2 10*3/uL Normal 0.0-0.8 [facility] Comment on above: Performed By: #### F OL, B12, HSCRP, ESR #### [place] [address] [place] #### WILL CHOICE, RA, LYME AB wRFX, SPE #### [facility] , Monocytes/100 WBC (Bld) 16.72 % Normal 0.00-20.00 [facility] Comment on above: Performed By: #### F OL, B12, HSCRP, ESR #### [facility] [address] [place] [address] [place] #### WILL CHOICE, RA, LYME AB wRFX, SPE #### [facility] , Monocytes/100 WBC (Bld) 2.7 % Normal . [facility] Comment on above: Performed By: #### F OL, B12, HSCRP, ESR #### [facility] [address] [place] [address] [place] #### WILL CHOICE, RA, LYME AB wRFX, SPE #### [facility] , Neutrophils (Bld) [#/Vol] 5.2 10*3/uL Normal 1.8-7.7 [facility] Comment on above: Performed By: #### F OL, B12, HSCRP, ESR #### [address] #### WILL CHOICE, RA, LYME AB wRFX, SPE #### [facility] , Neutrophils/100 WBC (Bld) 68.4 % Normal . [facility] Comment on above: Performed By: #### F OL, B12, HSCRP, ESR #### [place] [address] [place] #### WILL CHOICE, RA, LYME AB wRFX, SPE #### [facility] , NRBC% 0.1 /100{WBC} Normal 0-0.5 [facility] Comment on above: Performed By: #### F OL, B12, HSCRP, ESR #### [place] [address] [place] #### WILL CHOICE, RA, LYME AB wRFX, SPE #### [facility] , Platelet mean volume (Bld) [Entitic vol] 8.2 fL Normal 6.3-10.7 [facility] Comment on above: Performed By: #### F OL, B12, HSCRP, ESR #### [facility] [address] [place] [address] [place] #### WILL CHOICE, RA, LYME AB wRFX, SPE #### [facility] , Platelets (Bld) [#/Vol] 350 10*3/uL Normal 150-450 [facility] Comment on above: Performed By: #### F OL, B12, HSCRP, ESR #### [facility] [address] [place] [address] #### WILL CHOICE, RA, LYME AB wRFX, SPE #### [facility] , RBC (Bld) [#/Vol] 4.59 10*6/uL Normal 3.60-5.00 [facility] Comment on above: Performed By: #### F OL, B12, HSCRP, ESR #### [facility] [address] [place] [address] #### WILL CHOICE, RA, LYME AB wRFX, SPE #### [facility] , WBC (Bld) [#/Vol] 7.6 10*3/uL Normal 3.8-11.6 [facility] Comment on above: Performed By: #### F OL, B12, HSCRP, ESR #### [facility] [address] [place] [address] [place] #### WILL CHOICE, RA, LYME AB wRFX, SPE #### [facility] , Creatine Kinaseon 01-24-2023 CK [Catalytic activity/Vol] 55 U/L Normal 30-223 [facility] Comment on above: Performed By: #### F OL, B12, HSCRP, ESR #### [facility] [address] [place] [address] [place] #### WILL CHOICE, RA, LYME AB wRFX, SPE #### [facility] , Creatine kinase [Enzymatic a ctivity/volume] in Serum or PlasmaOrdered By: Laz Lobo on 01-24-2023 CK [Catalytic activity/Vol] 55 U/L 30-223 [facility] Creatinine [Mass/volume] in Serum or PlasmaOrdered By: Laz Lobo on 08-28-2023 Creatinine [Mass/Vol] 0.57 mg/dL 0.60-1.20 [facility] D-Dimer High Sensitivityon 0 01-24-2023 D-Dimer High Sensitivity < 200 Normal 0-243 [facility] Comment on above: Result Comment: The [...] patients due to co-morbid conditions. PERFORMED BY: [place] [address] PATHOLOGIST COMMUNICATION SPECIALIST WENDY CLARK M.D. Performed By: #### F OL, B12, HSCRP, ESR #### [place] [address] [place] #### WILL CHOICE, RA, LYME AB wRFX, SPE #### [facility] , ECG 12 lead ECGon 01-24-2023 ECG 12 lead ECG [facility] [place] [address] Electrocardiograph Report Signed Patient: Lupe Pickard MR#: [id number] : 1975 Acct:[id number] Age/Sex: 47 / F ADM Date: 01/24/23 Loc: ER Room: Type: [facility] ER Attending Dr: Ordering Provider: Laz Lobo MD Date of Service: 01/24/23 ECG/ECG 12 [...] ST changes Confirmed by Yogi Mcgraw DO ([id number]) on 01/24/2023 7:22:27 PM Referred By: Electronically Signed By:Yogi Mcgraw DO Transcribed By: MUS Signed By Yogi Mcgraw DO 1921 Normal [facility] ED Note-Physicianon 01-25-20 ED Note-Physician [id number]# 1.00CD:127 Normal [facility] Eosinophils Auto (Bld) [#/Vo l]Ordered By: Laz Lobo on 01-24-2023 Eosinophils (Bld) [#/Vol] 0.1 10*3/uL 0.0-0.45 [facility] Eosinophils/100 WBC Auto (Bl d)Ordered By: Laz Lobo on 01-24-2023 Eosinophils/100 WBC (Bld) 1.6 % . [facility] Erythrocyte distribution wid th Auto (RBC) [Ratio]Ordered By: Laz Lobo on 01-24-2023 Erythrocyte distribution width (RBC) [Ratio] 14.5 % 11.9-15.3 [facility] Glucose [Mass/volume] in Ser um or PlasmaOrdered By: Laz Lobo on 01-24-2023 Glucose [Mass/Vol] 110 mg/dL 70-100 [facility] Comment on above: ADA recommended refe rence rangeRandom Glucose Reference Range is dependent on time and content of last meal. Glucose of more than 200 mg/dL in a nonstressed, ambulatory subject supports the diagnosis of Diabetes Mellitus. Hematocrit Auto (Bld) [Volum e fraction]Ordered By: Laz Lobo on 01-24-2023 Hematocrit (Bld) [Volume fraction] 39.8 % 34.0-46.4 [facility] Hemoglobin [Mass/volume] in BloodOrdered By: Laz Lobo on 01-24-2023 Hemoglobin (Bld) [Mass/Vol] 13.2 g/dL 11.8-15.4 [facility] INR in Platelet poor plasma by Coagulation assayOrdered By: Laz Lobo on 01-24-2023 INR Coag (PPP) [Relative time] 1.0 {INR} [facility] Comment on above: INR Therapeutic Rang [...] Auto test strip (U) [Mass/Vol]Ordered By: Laz Lobo on 01-24-2023 Ketones (U) [Mass/Vol] Negative Negative [facility] Lab Reportson 01-24-2023 Lab Reports [id number]# 1.00CD:127 Normal [facility] Laboratory - CoagulationOrde red By: Laz Lobo on 01-24-2023 PT Coag (PPP) [Time] 11.5 s 9.0-12.9 [facility] Leukocytes [#/volume] correc emily for nucleated erythrocytes in Blood by Automated counOrdered By: Laz Lobo on 01-24-2023 WBC corrected for nucl RBC Auto (Bld) [#/Vol] 7.6 10*3/uL 3.8-11.6 [facility] Lymphocytes Auto (Bld) [#/Vo l]Ordered By: Laz Lobo on 01-24-2023 Lymphocytes (Bld) [#/Vol] 2.0 10*3/uL 1.00-4.8 [facility] Lymphocytes/100 WBC Auto (Bl d)Ordered By: Laz Lobo on 01-24-2023 Lymphocytes/100 WBC (Bld) 26.6 % . [facility] MCH Auto (RBC) [Entitic mass ]Ordered By: Laz Lobo on 01-24-2023 MCH (RBC) [Entitic mass] 28.8 pg 24.7-34.3 [facility] MCHC Auto (RBC) [Mass/Vol]Or dered By: Laz Lobo on 01-24-2023 MCHC (RBC) [Mass/Vol] 33.1 g/dL 32.0-35.0 [facility] MCV Auto (RBC) [Entitic vol] Ordered By: Laz Lobo on 01-24-2023 MCV (RBC) [Entitic vol] 86.8 fL 80-100 [facility] Monocyte distribution width [Entitic volume] in Blood by AutomatedOrdered By: Laz Lobo on 01-24-2023 Monocyte distribution width Auto (Bld) [Entitic vol] 16.72 % 0.00-20.00 [facility] Monocytes Auto (Bld) [#/Vol] Ordered By: Laz Lobo on 01-24-2023 Monocytes (Bld) [#/Vol] 0.2 10*3/uL 0.0-0.8 [facility] Monocytes/100 WBC Auto (Bld) Ordered By: Laz Lobo on 01-24-2023 Monocytes/100 WBC (Bld) 2.7 % . [facility] Natriuretic peptide B [Mass/ Vol]Ordered By: Laz Lobo on 01-24-2023 Natriuretic peptide B (Bld) [Mass/Vol] 37.0 pg/mL 5-100 [facility] Neutrophils Auto (Bld) [#/Vo l]Ordered By: Laz Lobo on 01-24-2023 Neutrophils (Bld) [#/Vol] 5.2 10*3/uL 1.8-7.7 [facility] Neutrophils/100 WBC Auto (Bl d)Ordered By: Laz Lobo on 01-24-2023 Neutrophils/100 WBC (Bld) 68.4 % . [facility] Nitrite Test strip Ql (U)Ord ered By: Laz Lobo on 01-24-2023 Nitrite Ql (U) Negative Negative [facility] No Panel InformationOrdered By: Laz Lobo on 01-24-2023 D-Dimer Quantitative (PE/DVT) < 200 ng/mL 0-243 [facility] Comment on above: The reference range for D-dimer is <243 ng/mL D-dimer units.D-dimer results must be used in conjunction with a clinicalpretest probability (PTP) assessment model for deep veinthrombosis (DVT) and pulmonary embolism (PE). Results <230ng/mL d-dimer units can be used as a negative predictor inpatients with low or moderate probability for DVT/PE.Results above the exclusion threshold of 230 ng/ml D-dimerunits for DVT/PE may indicate the need for furtherdiagnostic testing.D-Dimer can be increased in hospitalized patients due toco-morbid conditions. Estimated GFR (CKD-EPI) > 60.0 mL/Min [facility] Pharmacy Creatinine Clearance (Chem 169.33 [facility] Nucleated erythrocytes [Pres ence] in Blood by Automated countOrdered By: Laz Lobo on 01-24-2023 Nucleated RBC Auto Ql (Bld) 0.1 /100{WBC} 0-0.5 [facility] Outside Labson 01-24-2023 Outside Labs [id number] #1.00CD:127 Normal [facility] Partial Thromboplastin Timeo n 01-24-2023 aPTT Coag (Bld) [Time] 29.9 s Normal 25.1-36.5 [facility] Comment on above: Performed By: #### F OL, B12, HSCRP, ESR #### [facility] [address] #### WILL CHOICE, RA, LYME AB wRFX, SPE #### [facility] , Platelet mean volume Auto (B ld) [Entitic vol]Ordered By: Laz Lobo on 01-24-2023 Platelet mean volume (Bld) [Entitic vol] 8.2 fL 6.3-10.7 [facility] Platelets Auto (Bld) [#/Vol] Ordered By: Laz Lobo on 01-24-2023 Platelets (Bld) [#/Vol] 350 10*3/uL 150-450 [facility] Potassium [Moles/volume] in Serum or PlasmaOrdered By: Laz Lobo on 01-24-2023 Potassium [Moles/Vol] 3.8 mmol/L 3.5-5.1 [facility] Protein Auto test strip (U) [Mass/Vol]Ordered By: Laz Lobo on 01-24-2023 Protein (U) [Mass/Vol] Negative Negative [facility] Prothrombin Time INRon 01-24 INR Coag (PPP) [Relative time] 1.0 {INR} Normal [facility] Comment on above: Result Comment: INR [...] valves: 3 - 4.5 Performed By: #### F OL, B12, HSCRP, ESR #### [address] #### WILL CHOICE, RA, LYME AB wRFX, SPE #### [facility] , PT Coag (PPP) [Time] 11.5 s Normal 9.0-12.9 [facility] Comment on above: Performed By: #### F OL, B12, HSCRP, ESR #### [place] [address] [place] #### WILL CHOICE, RA, LYME AB wRFX, SPE #### [facility] , RBC Auto (Bld) [#/Vol]Ordere d By: Laz Lobo on 01-24-2023 RBC (Bld) [#/Vol] 4.59 10*6/uL 3.60-5.00 [facility] Serum or plasma anion gap de terminationOrdered By: Laz Lobo on 01-24-2023 Anion gap [Moles/Vol] 8.8 mmol/L 6.0-15.0 [facility] Sodium [Moles/volume] in Ser um or PlasmaOrdered By: Laz Lobo on 01-24-2023 Sodium [Moles/Vol] 139 mmol/L 136-145 [facility] Specific gravity Auto test s trip (U) [Rel density]Ordered By: Laz Lobo on 01-24-2023 Specific gravity (U) [Rel density] 1.004 1.001-1.030 [facility] Troponin I High Sensitivityo n 01-24-2023 Troponin I High Sensitivity < 2.3 Normal 0.0-15.0 [facility] Comment on above: Result Comment: PERF ORMED BY: [place] [address] PATHOLOGIST COMMUNICATION SPECIALIST WENDY CLARK M.D. Performed By: #### F OL, B12, HSCRP, ESR #### [address] #### WILL CHOICE, RA, LYME AB wRFX, SPE #### [facility] , Troponin I.cardiac [Mass/vol ume] in Serum or Plasma by Detection limit <= 0.01 ng/Ordered By: Laz Lobo on 01-24-2023 Troponin I.cardiac DL <= 0.01 ng/mL [Mass/Vol] < 2.3 pg/mL 0.0-15.0 [facility] Urea nitrogen [Mass/volume] in Serum or PlasmaOrdered By: Laz Lobo on 01-24-2023 Urea nitrogen [Mass/Vol] 7 mg/dL 12-21 [facility] Urinalysison 01-24-2023 Appearance (U) Clear Normal Clear [facility] Comment on above: Order Comment: Name Collection Type:: Clean-Voided Midstream Performed By: #### U A ####[address] Bilirubin,Urine Negative Normal Negative [facility] Comment on above: Order Comment: Name Collection Type:: Clean-Voided Midstream Performed By: #### U A ####[place] [id number] [facility] Color (U) Yellow Normal Yellow [facility] Comment on above: Order Comment: Name Collection Type:: Clean-Voided Midstream Performed By: #### U A ####[place] [id number] [facility] Glucose Ql (U) Normal Normal Normal [facility] Comment on above: Order Comment: Name Collection Type:: Clean-Voided Midstream Performed By: #### U A ####[place] [id number] [facility] Ketones Ql (U) Negative Normal Negative [facility] Comment on above: Order Comment: Name Collection Type:: Clean-Voided Midstream Performed By: #### U A ####[place] [id number] [facility] Leukocyte esterase Test strip Ql (U) Negative Normal Negative [facility] Comment on above: Order Comment: Name Collection Type:: Clean-Voided Midstream Performed By: #### U A ####[place] [address] [place] [address] [place] Nitrite,Urine Negative Normal Negative [facility] Comment on above: Order Comment: Name Collection Type:: Clean-Voided Midstream Performed By: #### U A ####[address] [address] [facility] Occult Blood,Urine Negative Normal Negative [facility] Comment on above: Order Comment: Name Collection Type:: Clean-Voided Midstream Result Comment: PERF ORMED BY: [facility] [address] [place] [id number] PATHOLOGIST COMMUNICATION SPECIALIST WENDY CLARK M.D. Performed By: #### U A ####[address] [address] [facility] pH (U) 7.0 [pH] Normal 5.0-9.0 [facility] Comment on above: Order Comment: Name Collection Type:: Clean-Voided Midstream Performed By: #### U A ####[address] [address] [facility] Protein,Urine Negative Normal Negative [facility] Comment on above: Order Comment: Name Collection Type:: Clean-Voided Midstream Performed By: #### U A ####[address] [address] [facility] Specificy [place],Urine 1.004 Normal 1.001-1.030 [facility] Comment on above: Order Comment: Name Collection Type:: Clean-Voided Midstream Performed By: #### U A ####[address] [address] [place] Urobilinogen,Urine Normal Normal Normal [facility] Comment on above: Order Comment: Name Collection Type:: Clean-Voided Midstream Performed By: #### U A ####[address] [address] [facility] Urine clarity by refractomet ry automatedOrdered By: Laz Lobo on 01-24-2023 Clarity Refractometry automated (U) Clear Clear [facility] Urine glucose measurement by automated test strip (mass/volume)Ordered By: Laz Lobo on 01-24-2023 Glucose Auto test strip (U) [Mass/Vol] Normal mg/dL Normal [facility] Urine hemoglobin detection b y automated test stripOrdered By: Laz Lobo on 01-24-2023 Hemoglobin Auto test strip Ql (U) Negative Negative [facility] Urine leukocyte esterase det ection by automated test stripOrdered By: Laz Lobo on 01-24-2023 Leukocyte esterase Auto test strip Ql (U) Negative Negative [facility] Urobilinogen Auto test strip (U) [Mass/Vol]Ordered By: Laz Lobo on 01-24-2023 Urobilinogen (U) [Mass/Vol] Normal mg/dL Normal [facility] WBC Auto (Bld) [#/Vol]Ordere d By: Laz Lobo on 01-24-2023 WBC (Bld) [#/Vol] 7.6 10*3/uL 3.8-11.6 [facility] XR chest 1V portableon 01-24 XR chest 1V portable [facility] [place] [address] XRay Report Signed Patient: Lupe Pickard MR#: [id number] : 1975 Acct:[id number] Age/Sex: 47 / F ADM Date: 01/24/23 Loc: ER Room: Type: [facility] ER Attending Dr: Copies to: MD Ygoi Gill DO Ordering Provider: Laz Lobo MD Date of Service: 01/24/23 XR/XR chest 1V portable: Shortness of Breath/Dyspnea SINGLE VIEW CHEST CLINICAL HISTORY: Elevated blood pressure, shortness of breath getting worse heart palpitations COMPARISON: Chest 12/30/2022 FINDINGS: Heart normal size. Lungs are clear. No free air. XR/XR chest 1V portable IMPRESSION: NO ACUTE FINDINGS Impression dictated by: Bob Neff Jr., D.OJaycee01/24/2023 10:55 AM Dictation Location: [place] [address] Transcribed By: [facility] 01/24/23 1055 Dictated By: Bob Neff Jr, DO 01/24/23 1055 Signed By: 01/24/23 1055 Normal [facility] pH Auto test strip (U)Ordere d By: Laz Lobo on 01-24-2023 pH (U) 7.0 [pH] 5.0-9.0 [facility] Basic Metabolic Panelon 12-29 Anion gap [Moles/Vol] 10.1 mmol/L Normal 6.0-15.0 [facility] Comment on above: Performed By: #### F OL, B12, HSCRP, ESR #### [address] #### WILL CHOICE, RA, LYME AB wRFX, SPE #### [facility] , Calcium [Mass/Vol] 9.1 mg/dL Normal 8.6-10.3 [facility] Comment on above: Performed By: #### F OL, B12, HSCRP, ESR #### [facility] [address] [place] [address] [place] #### WILL CHOICE, RA, LYME AB wRFX, SPE #### [facility] , Chloride [Moles/Vol] 105 mmol/L Normal 98-107 [facility] Comment on above: Performed By: #### F OL, B12, HSCRP, ESR #### [place] [address] [place] #### WILL CHOICE, RA, LYME AB wRFX, SPE #### [facility] , CO2 [Moles/Vol] 28.2 mmol/L Normal 21.0-31.0 [facility] Comment on above: Performed By: #### F OL, B12, HSCRP, ESR #### [facility] [address] [place] [address] [place] #### WILL CHOICE, RA, LYME AB wRFX, SPE #### [facility] , Creatinine [Mass/Vol] 0.52 mg/dL Low 0.60-1.20 [facility] Comment on above: Performed By: #### F OL, B12, HSCRP, ESR #### [place] [address] [place] #### WILL CHOICE, RA, LYME AB wRFX, SPE #### [facility] , GFR/1.73 sq M.predicted MDRD (S/P/Bld) [Vol rate/Area] mL/min/{1.73_m2} Normal [facility] Comment on above: Performed By: #### F OL, B12, HSCRP, ESR #### [place] [address] [place] #### WILL CHOICE, RA, LYME AB wRFX, SPE #### [facility] , Glucose [Mass/Vol] 84 mg/dL Normal 70-100 [facility] Comment on above: Result Comment: [facility] Glucose Reference Range is dependent on time and content of last meal. Glucose of more than 200 mg/dL in a nonstressed, ambulatory subject supports the diagnosis of Diabetes Mellitus. ADA recommended reference range Performed By: #### F OL, B12, HSCRP, ESR #### [place] [address] [place] #### WILL CHOICE, RA, LYME AB wRFX, SPE #### [facility] , Potassium [Moles/Vol] 4.3 mmol/L Normal 3.5-5.1 [facility] Comment on above: Performed By: #### F OL, B12, HSCRP, ESR #### [facility] [address] [place] [address] [place] #### WILL CHOICE, RA, LYME AB wRFX, SPE #### [facility] , Sodium [Moles/Vol] 139 mmol/L Normal 136-145 [facility] Comment on above: Performed By: #### F OL, B12, HSCRP, ESR #### [place] [address] [place] #### WILL CHOICE, RA, LYME AB wRFX, SPE #### [facility] , Urea nitrogen [Mass/Vol] 8 mg/dL Normal 12-21 [facility] Comment on above: Performed By: #### F OL, B12, HSCRP, ESR #### [facility] [address] #### WILL CHOICE, RA, LYME AB wRFX, SPE #### [facility] , Calcium [Mass/volume] in Ser um or PlasmaOrdered By: Phillip Benjamin on 01-21-2023 Calcium [Mass/Vol] 9.1 mg/dL 8.6-10.3 [facility] Carbon dioxide, total [Moles /volume] in Serum or PlasmaOrdered By: Phillip Benjamin on 01-21-2023 CO2 [Moles/Vol] 28.2 mmol/L 21.0-31.0 [facility] Chloride [Moles/volume] in S zakia or PlasmaOrdered By: Phillip Benjamin on 01-21-2023 Chloride [Moles/Vol] 105 mmol/L 98-107 [facility] Cholesterol [Mass/volume] in Serum or PlasmaOrdered By: Franklyn Madera on 01-21-2023 Cholesterol [Mass/Vol] 153 mg/dL 140-200 [facility] Comment on above: Chol less than 200 m g/dl low riskChol 201-239 mg/dl borderline riskChol 240 mg/dl and greater high risk Cholesterol in LDL Calc [Mas s/Vol]Ordered By: Franklyn Madera on 01-21-2023 Cholesterol in LDL [Mass/Vol] 60 mg/dL 0-100 [facility] Comment on above: LDL ATP III CLASSIFI CATIONLDL less than 100 mg/dL OptimalLDL 100-129 mg/dL Near or above optimalLDL 130-159 mg/dL Borderline highLDL 160-189 mg/dL HighLDL greater than 189 mg/dL Very high Cholesterol in VLDL Calc [Ma ss/Vol]Ordered By: Franklyn Madera on 01-21-2023 Cholesterol in VLDL [Mass/Vol] 50 mg/dL [facility] Consent for Treatmenton 12-29 Consent for Treatment [id number] #1.00CD:127 Normal [facility] Creatinine [Mass/volume] in Serum or PlasmaOrdered By: Phillip Benjamin on 01-21-2023 Creatinine [Mass/Vol] 0.52 mg/dL 0.60-1.20 [facility] Glucose [Mass/volume] in Ser um or PlasmaOrdered By: Phillip Benjamin on 01-21-2023 Glucose [Mass/Vol] 84 mg/dL 70-100 [facility] Comment on above: ADA recommended refe rence rangeRandom Glucose Reference Range is dependent on time and content of last meal. Glucose of more than 200 mg/dL in a nonstressed, ambulatory subject supports the diagnosis of Diabetes Mellitus. Lipid Panelon 01-21-2023 Cholesterol [Mass/Vol] 153 mg/dL Normal 140-200 [facility] Comment on above: Result Comment: Chol less than 200 mg/dl low risk Chol 201-239 mg/dl borderline risk Chol 240 mg/dl and greater high risk Performed By: #### F OL, B12, HSCRP, ESR #### [facility] [address] [place] [address] #### WILL CHOICE, RA, LYME AB wRFX, SPE #### [facility] , Cholesterol in HDL [Mass/Vol] 42 mg/dL Normal 23-92 [facility] Comment on above: Result Comment: HDL CHOL ATP-III CLASSIFICATION Cardiovascular Risk HDL > or equal to 60 mg/dL LOW HDL < 40 mg/dL HIGH Performed By: #### F OL, B12, HSCRP, ESR #### [facility] [address] [place] [address] #### WILL CHOICE, RA, LYME AB wRFX, SPE #### [facility] , Cholesterol.total/Ch olesterol in HDL [Mass ratio] 3.6 {ratio} Normal <5.0 [facility] Comment on above: Result Comment: PERF ORMED BY: [place] [address] PATHOLOGIST COMMUNICATION SPECIALIST WENDY CLARK M.D. Performed By: #### F OL, B12, HSCRP, ESR #### [facility] [address] [place] [address] [place] #### WILL CHOICE, RA, LYME AB wRFX, SPE #### [facility] , LDL Cholesterol,Calculat ed 60 mg/dL Normal 0-100 [facility] Comment on above: Result Comment: LDL ATP III CLASSIFICATION LDL less than 100 mg/dL Optimal LDL 100-129 mg/dL Near or above optimal LDL 130-159 mg/dL Borderline high LDL 160-189 mg/dL High LDL greater than 189 mg/dL Very high Performed By: #### F OL, B12, HSCRP, ESR #### [facility] [address] [place] [address] [place] #### WILL CHOICE, RA, LYME AB wRFX, SPE #### [facility] , Triglyceride w/Reflex 254 mg/dL High 0-149 [facility] Comment on above: Result Comment: TRIG ATP III CLASSIFICATION TRIG less than 150 mg/dL Normal TRIG 150-199 mg/dL Borderline high TRIG 200-500 mg/dL High TRIG greater than 500 mg/dL Very high Standard traceable to the Center for Disease Conrtrol and Prevention (CDC) test method. Performed By: #### F OL, B12, HSCRP, ESR #### [facility] [address] [place] [address] [place] #### WILL CHOICE, RA, LYME AB wRFX, SPE #### [facility] , VLDL CHOLESTEROL 50 mg/dL Normal [facility] Comment on above: Performed By: #### F OL, B12, HSCRP, ESR #### [facility] [address] [place] [address] [place] #### WILL CHOICE, RA, LYME AB wRFX, SPE #### [facility] , No Panel InformationOrdered By: Phillip Benjamin on 01-21-2023 Estimated GFR (CKD-EPI) > 60.0 mL/Min [facility] Creatinine Clearance (Chem N/A [facility] No Panel Informationon 01-21 > 60.0 Normal [place] [address] DO Work Phone: [phone] 10.1\S\10.1 Normal 6.0-15.0 -[facility] [employer] [address] DO Work Phone: [phone] 9.1\S\9.1 Normal 8.6-10.3 -[facility] [employer] [address] DO Work Phone: [phone] 28.2\S\28.2 Normal 21.0-31.0 -[facility] [employer] [address] DO Work Phone: [phone] 105\S\105 Normal 98-107 -[facility] [employer] [address] DO Work Phone: [phone] 4.3\S\4.3 Normal 3.5-5.1 [facility] [employer] [address] DO Work Phone: [phone] 139\S\139 Normal 136-145 [facility] [employer] DO Work Phone: [phone] 0.52\S\0.52 below low threshold 0.60-1.20 -[facility] [employer] [address] DO Work Phone: [phone] 8\S\8 Normal 7-25 -[facility] [employer] [address] DO Work Phone: [phone] 84\S\84 Normal 70-100 [facility] [employer] DO Work Phone: [phone] Comment on above: Random Glucose Refer ence Range is dependent on time and content of last meal. Glucose of more than 200 mg/dL in a nonstressed, ambulatory subject supports the diagnosis of Diabetes Mellitus. ADA recommended reference range 0.24\S\0.24 below low threshold 0.45-5.33 [facility] [employer] [address] DO Work Phone: [phone] 41.7\S\41.7 Normal 30-100 [facility] [employer] [address] DO Work Phone: [phone] Comment on above: VITAMIN D STATUS 25( [place])VITAMIN D RANGE (ng/mL) Deficient <20 Insufficient 20 to <30 Sufficient 30 to 100 Reference: Kirby MF,Adonay NC, Shantelle HOLLOWAY, et al. Evaluation,treatment, and prevention of vitamin D deficiency; an Endocrine Society clinical practice guideline. JCEM. 2010; 96(7):1911-30.PERFORMED BY:[facility] [place], [place] [id number] MEDICAL DIRECTORWENDY CLARK M.D. Potassium [Moles/volume] in Serum or PlasmaOrdered By: Phillip Benjamin on 01-21-2023 Potassium [Moles/Vol] 4.3 mmol/L 3.5-5.1 [facility] Serum or plasma anion gap de terminationOrdered By: Phillip Benjamin on 01-21-2023 Anion gap [Moles/Vol] 10.1 mmol/L 6.0-15.0 [facility] Serum or plasma high density lipoprotein (HDL) cholesterol measurementOrdered By: Franklyn Madera on 01-21-2023 Cholesterol in HDL [Mass/Vol] 42 mg/dL 23-92 [facility] Comment on above: HDL CHOL ATP-III CLA SSIFICATION Cardiovascular RiskHDL > or equal to 60 mg/dL LOWHDL < 40 mg/dL HIGH Serum or plasma total choles terol/high density lipoprotein (HDL) cholesterol mass ratOrdered By: Franklyn Madera on 01-21-2023 Cholesterol.total/Ch olesterol in HDL [Mass ratio] 3.6 {ratio} <5.0 [facility] Sodium [Moles/volume] in Ser um or PlasmaOrdered By: Phillip Benjaimn on 01-21-2023 Sodium [Moles/Vol] 139 mmol/L 136-145 [facility] Thyroid Stimulating Hormoneo n 01-21-2023 TSH Qn 0.24 m[IU]/L Low 0.45-5.33 [facility] Comment on above: Performed By: #### F OL, B12, HSCRP, ESR #### [facility] [address] [place] [id number] [place] #### WILL CHOICE, RA, LYME AB wRFX, SPE #### [facility] , Thyrotropin [Units/volume] i n Serum or PlasmaOrdered By: Phillip Benjamin on 01-21-2023 TSH Qn 0.24 m[IU]/L 0.45-5.33 [facility] Triglyceride [Mass/volume] i n Serum or PlasmaOrdered By: Franklyn Madera on 01-21-2023 Triglyceride [Mass/Vol] 254 mg/dL 0-149 [facility] Comment on above: TRIG ATP III CLASSIF ICATIONTRIG less than 150 mg/dL NormalTRIG 150-199 mg/dL Borderline highTRIG 200-500 mg/dL High TRIG greater than 500 mg/dL Very highStandard traceable to the Center for Disease Conrtrol and Prevention (CDC) test method. Urea nitrogen [Mass/volume] in Serum or PlasmaOrdered By: Phillip Benjamin on 01-21-2023 Urea nitrogen [Mass/Vol] 8 mg/dL 7-25 [facility] Vitamin D 25 Hydroxy Totalon 01-21-2023 Vitamin D 25 Hydroxy Total 41.7 ng/mL Normal 30-100 [facility] Comment on above: Result Comment: QASIM MIN D STATUS 25([place])VITAMIN D RANGE (ng/mL) Deficient <20 Insufficient 20 to <30 Sufficient 30 to 100 Reference: Kirby MF,Adonay NC, Shantelle HOLLOWAY, et al. Evaluation,treatment, and prevention of vitamin D deficiency; an Endocrine Society clinical practice guideline. JCEM. 2010; 96(7):1911-30. PERFORMED BY: [place] [address] PATHOLOGIST COMMUNICATION SPECIALIST WENDY CLARK M.D. Performed By: #### F OL, B12, HSCRP, ESR #### [place] [address] [place] #### WILL CHOICE, RA, LYME AB wRFX, SPE #### [facility] , Vitamin D+Metabolites [Mass/ volume] in Serum or PlasmaOrdered By: Phillip Benjamin on 01-21-2023 Vitamin D+Metabolites [Mass/Vol] 41.7 ng/mL 30-100 [facility] Comment on above: VITAMIN D STATUS 25( [place])VITAMIN D RANGE (ng/mL) Deficient <20 Insufficient 20 to <30Sufficient 30 to 100Reference: Kirby MF,Adonay INMAN, Shantelle HOLLOWAY, et al. Evaluation,treatment, and prevention of vitamin D deficiency; an Endocrine Society clinical practice guideline. JCEM. 2010; 96(7):1911-30. Consenton 01-19-2023 Consent [id number] 9#1.00CD:127 Normal [facility] Patient Eval Forms Officeon 01-19-2023 Patient Eval Forms Office [id number] 2#1.00CD:127 [facility] Patient Eval Forms Office [id number] 2#1.00CD:127 [facility] Consent for Treatmenton 12-29 Consent for Treatment [id number] #1.00CD:127 [facility] Discharge Instructionson Discharge Instructions [id number] 9#1.00CD:127 [facility] Consent for Treatmenton Consent for Treatment [id number] #1.00CD:127 [facility] Consent for Treatment [id number] #1.00CD:127 [facility] ED Clinical Summaryon 2022 ED Clinical Summary [address] [address] ED Clinical Summary Person Information Name: LUPE PICKARD Casey/NewYou Age: 47 Years : 1975 Sex: Female Language: Mongolian PCP: Diony Singh DO Marital Status: Single Phone: [phone] Visit Id: Visit Reason: Lower leg pain-swelling; [...] 01/05/2023 17:57:33 01/05/2023 17:57:33 ADDRESS: [address] [facility] [phone] PHYS DOC NOTES: MEDICAL INFORMATION: Prescriptions Given: Medications [...] Paresthesia; Leg Cramps Follow up: With: Address: Lacho: Dion[address], [facility] [place] [address] In 3 days 01/08/2023 Comments: Call the [...] pain, bilateral; Pain in left leg Normal [facility] ED Note-Physicianon 01-06-20 ED Note-Physician Basic Information Time Seen: Sergei Hurd PA-C 01/05/2023 16:25 Chief Complaint pt c/o having blood pressure issues, pt was seen at [facility] and she did have an elevated ddimer and had a cta of her chest. pt is supposed to have an us of both legs tomorrow but has had throbbing in both legs, heavy feeling in calf. History of Present Illness 47-year-old female presents ED with complaint of lower extremity pain, concern for DVT. Patient has been seen multiple times at [facility] over the last month with concern for palpitations. Patient is also had alterations in her blood pressure, alternating hypertension with normal range blood pressure which she is found very concerning. Patient was recently started on blood pressure medications which have been being adjusted by her PCP as well. Patient was seen last week at [facility]. As part of this workup for palpitations, [...] and Complexity of Problems Differential Diagnosis: [] [facility] Data External documents reviewed: [] My EKG [...] Singh In 3 days 01/08/2023 EDT [address] [place] [address] [place] [address]- Additional Instructions: Call the office of your [...] nearest Emergency (more content not included)... Normal [facility] Comment on above: Result Comment: Elec [...] liquor (44 mL). General instructions ? Take wvwb-sin-sbvdzlw and prescription medicines only as told by [...] provider. Document Revised: 01/25/2022 Document Reviewed: 01/25/2022 Elsevier Patient Education ? 2022 TeamPatent. Orthopedics Leg Cramps Leg cramps occur when [...] This coul (more content not included)... Normal [facility] ED Patient Summaryon 023 ED Patient Summary [address] [address] Patient Discharge Instructions Person Information Name: LUPE PICKARD Age: 47 Years Arrival Date: 01/05/2023 16:19:27 Discharge Diagnosis: Lower extremity pain, bilateral; Pain in left leg Primary Care Physician: Diony Singh DO Provider Information Primary Provider: Christiano Solis M.D. Advanced Senior Application Security Consultant:Sergei Hurd PA-C The exam and treatment you received in the Emergency Department were for an urgent problem and are not intended as complete care. It is important that you follow up with a doctor, nurse practitioner, or physician?s preschool teacher assistant for ongoing care. If your symptoms [...] Follow-up Instructions: With: Address: When: Diony Singh [address] [facility] [place] [address] In 3 days 01/08/2023 Comments: Call the [...] opioids can be used to help relieve bqhylwha-mo-bkmtca pain and are often prescribed following a [...] of u (more content not included)... Normal [facility] Magnesiumon 01-05-2023 Magnesium [Mass/Vol] 2.1 mg/dL Normal 1.3-2.4 [facility] Comment on above: Performed By: #### 2 [id number] ####[facility] [address] [place] [address] LE Venous Duplex Bilatera soniya 01-05-2023 LE Venous Duplex Bilateral Exam Date/Time: [...] MD Transcribed by: MUSA Technologist: MACHO Normal [facility] Consent for Treatmenton Consent for Treatment [id number] #1.00CD:127 Normal [facility] Physician Orderon 01-04-2023 Physician Order [id number]#1.00CD:127 Normal [facility] Progress Note-Nurseon 2022 Progress Note-Nurse [id number] #1.00CD:127 Normal [facility] CT head/brain wo conon 12-31 CT head/brain wo con [facility] [place] [address] [place] [address] CT Scan Report Signed Patient: Lupe Pickard MR#: [id number] : 1975 Acct:[id number] Age/Sex: 47 / F ADM Date: 12/30/22 Loc: ER Room: Type: [facility] ER Attending Dr: Copies to: DO Aaron [...] Neff Jr., D.O.12/31/2022 8:17 AM Dictation Location: [place] [address] Transcribed By: [facility] 12/31/22816 Dictated By: Bob Neff Jr, DO 12/31/22811 Signed By: 12/31/22816 [facility] ED Note-Physicianon 01-01-20 ED Note-Physician [id number] #1.00CD:127 Normal [facility] Activated partial thrombopla stin time (aPTT) in platelet poor plasma by coagulation aOrdered By: Mariya Kumari on 12-30-2022 aPTT Coag (PPP) [Time] 30.5 s 25.1-36.5 [facility] B-Type Natriuretic Peptideon 12-30-2022 Natriuretic peptide B (Bld) [Mass/Vol] 55.0 pg/mL Normal 5-100 [facility] Comment on above: Result Comment: PERF ORMED BY: [place] [address] PATHOLOGIST COMMUNICATION SPECIALIST WENDY CLARK M.D. Performed By: #### F OL, B12, HSCRP, ESR #### [address] #### WILL CHOICE, RA, LYME AB wRFX, SPE #### [facility] , Basic Metabolic Panelon Anion gap [Moles/Vol] 11.7 mmol/L Normal 6.0-15.0 [facility] Comment on above: Performed By: #### F OL, B12, HSCRP, ESR #### [address] #### WILL CHOICE, RA, LYME AB wRFX, SPE #### [facility] , Calcium [Mass/Vol] 8.4 mg/dL Low 8.6-10.3 [facility] Comment on above: Performed By: #### F OL, B12, HSCRP, ESR #### [facility] [address] [place] [address] [place] #### WILL CHOICE, RA, LYME AB wRFX, SPE #### [facility] , Chloride [Moles/Vol] 104 mmol/L Normal 98-107 [facility] Comment on above: Performed By: #### F OL, B12, HSCRP, ESR #### [place] [address] [place] #### WILL CHOICE, RA, LYME AB wRFX, SPE #### [facility] , CO2 [Moles/Vol] 28.0 mmol/L Normal 21.0-31.0 [facility] Comment on above: Performed By: #### F OL, B12, HSCRP, ESR #### [facility] [address] [place] [address] [place] #### WILL CHOICE, RA, LYME AB wRFX, SPE #### [facility] , Creatinine [Mass/Vol] 0.56 mg/dL Low 0.60-1.20 [facility] Comment on above: Performed By: #### F OL, B12, HSCRP, ESR #### [address] #### WILL CHOICE, RA, LYME AB wRFX, SPE #### [facility] , Creatinine Clr Calc Pharmacy 171.83 [facility] Comment on above: Result Comment: PERF ORMED BY: [place] [address] PATHOLOGIST COMMUNICATION SPECIALIST WENDY CLARK M.D. Performed By: #### F OL, B12, HSCRP, ESR #### [address] #### WILL CHOICE, RA, LYME AB wRFX, SPE #### [facility] , GFR/1.73 sq M.predicted MDRD (S/P/Bld) [Vol rate/Area] mL/min/{1.73_m2} [facility] Comment on above: Performed By: #### F OL, B12, HSCRP, ESR #### [place] [address] [place] #### WILL CHOICE, RA, LYME AB wRFX, SPE #### [facility] , Glucose [Mass/Vol] 87 mg/dL Normal 70-100 [facility] Comment on above: Result Comment: [place] Glucose Reference Range is dependent on time and content of last meal. Glucose of more than 200 mg/dL in a nonstressed, ambulatory subject supports the diagnosis of Diabetes Mellitus. ADA recommended reference range Performed By: #### F OL, B12, HSCRP, ESR #### [facility] [address] [place] [address] [place] #### WILL CHOICE, RA, LYME AB wRFX, SPE #### [facility] , Potassium [Moles/Vol] 3.7 mmol/L Normal 3.5-5.1 [facility] Comment on above: Performed By: #### F OL, B12, HSCRP, ESR #### [facility] [address] [place] [address] [place] #### WILL CHOICE, RA, LYME AB wRFX, SPE #### [facility] , Sodium [Moles/Vol] 140 mmol/L Normal 136-145 [facility] Comment on above: Performed By: #### F OL, B12, HSCRP, ESR #### [place] [address] [place] #### WILL CHOICE, RA, LYME AB wRFX, SPE #### [facility] , Urea nitrogen [Mass/Vol] 7 mg/dL Normal 7-25 [facility] Comment on above: Performed By: #### F OL, B12, HSCRP, ESR #### [facility] [address] [place] [address] [place] #### WILL CHOICE, RA, LYME AB wRFX, SPE #### [facility] , Basophils Auto (Bld) [#/Vol] Ordered By: Mariya Kumari on 12-30-2022 Basophils (Bld) [#/Vol] 0.1 10*3/uL 0.0-0.2 [facility] Basophils/100 WBC Auto (Bld) Ordered By: Mariya Kumari on 12-30-2022 Basophils/100 WBC (Bld) 1.3 % . [facility] CT angio chest PE protocolon 12-30-2022 CT angio chest PE protocol [facility] [place] [address] [place] [address] CT Scan Report Signed with Sara Patient: Lupe Pickard MR#: [id number] : 1975 Acct:[id number] Age/Sex: 47 / F ADM Date: 12/30/22 Loc: ER Room: Type: [facility] ER Attending Dr: Copies to: Mariya Kumari DO Ordering Provider: Mariya Kumari DO Date of Service: 12/30/22 CT/CT angio chest PE protocol: elevated D-dimer r/o PE ADDENDUM 1 Please disregard the first line in findings below. Lower neck: No supraclavicle adenopathy. Impression dictated by: Ernie Roper M.D.12/30/2022 9:28 PM Dictation Location: [place] [address] Addendum Dictated By: Ernie Roper II, MD [...] Ernie Roper M.D.12/30/2022 8:08 PM Dictation Location: [place] [address] Transcribed By: PWS 12/30/222007 Dictated By: Ernie Roper II, MD 12/30/222003 Signed By: 12/30/222007 Normal [facility] Calcium [Mass/volume] in Ser um or PlasmaOrdered By: Mariya Kumari on 12-30-2022 Calcium [Mass/Vol] 8.4 mg/dL 8.6-10.3 [facility] Carbon dioxide, total [Moles /volume] in Serum or PlasmaOrdered By: Mariya Kumari on 12-30-2022 CO2 [Moles/Vol] 28.0 mmol/L 21.0-31.0 [facility] Chloride [Moles/volume] in S zakia or PlasmaOrdered By: Mariya Kumari on 12-30-2022 Chloride [Moles/Vol] 104 mmol/L 98-107 [facility] Complete Blood Count Auto Di ffon 12-30-2022 Basophils (Bld) [#/Vol] 0.1 10*3/uL Normal 0.0-0.2 [facility] Comment on above: Result Comment: PERF ORMED BY: [place] [address] PATHOLOGIST COMMUNICATION SPECIALIST WENDY CLARK M.D. Performed By: #### F OL, B12, HSCRP, ESR #### [facility] [address] [place] [address] [place] #### WILL CHOICE, RA, LYME AB wRFX, SPE #### [facility] , Basophils/100 WBC (Bld) 1.3 % Normal . [facility] Comment on above: Performed By: #### F OL, B12, HSCRP, ESR #### [facility] [address] [place] [address] [place] #### WILL CHOICE, RA, LYME AB wRFX, SPE #### [facility] , Eosinophils (Bld) [#/Vol] 0.1 10*3/uL Normal 0.0-0.45 [facility] Comment on above: Performed By: #### F OL, B12, HSCRP, ESR #### [address] #### WILL CHOICE, RA, LYME AB wRFX, SPE #### [facility] , Eosinophils/100 WBC (Bld) 1.5 % Normal . [facility] Comment on above: Performed By: #### F OL, B12, HSCRP, ESR #### [place] [address] [place] #### WILL CHOICE, RA, LYME AB wRFX, SPE #### [facility] , Erythrocyte distribution width (RBC) [Ratio] 14.4 % Normal 11.9-15.3 [facility] Comment on above: Performed By: #### F OL, B12, HSCRP, ESR #### [address] #### WILL CHOICE, RA, LYME AB wRFX, SPE #### [facility] , Hematocrit (Bld) [Volume fraction] 40.1 % Normal 34.0-46.4 [facility] Comment on above: Performed By: #### F OL, B12, HSCRP, ESR #### [address] #### WILL CHOICE, RA, LYME AB wRFX, SPE #### [facility] , Hemoglobin (Bld) [Mass/Vol] 13.3 g/dL Normal 11.8-15.4 [facility] Comment on above: Performed By: #### F OL, B12, HSCRP, ESR #### [place] [address] [place] #### WILL CHOICE, RA, LYME AB wRFX, SPE #### [facility] , Lymphocytes (Bld) [#/Vol] 3.2 10*3/uL Normal 1.00-4.8 [facility] Comment on above: Performed By: #### F OL, B12, HSCRP, ESR #### [address] [place] [address] [place] #### WILL CHOICE, RA, LYME AB wRFX, SPE #### [facility] , Lymphocytes/100 WBC (Bld) 33.6 % Normal . [facility] Comment on above: Performed By: #### F OL, B12, HSCRP, ESR #### [address] #### WILL CHOICE, RA, LYME AB wRFX, SPE #### [facility] , MCH (RBC) [Entitic mass] 28.8 pg Normal 24.7-34.3 [facility] Comment on above: Performed By: #### F OL, B12, HSCRP, ESR #### [address] #### WILL CHOICE, RA, LYME AB wRFX, SPE #### [facility] , MCV (RBC) [Entitic vol] 87.2 fL Normal 80-100 [facility] Comment on above: Performed By: #### F OL, B12, HSCRP, ESR #### [address] #### WILL CHOICE, RA, LYME AB wRFX, SPE #### [facility] , Mean Corpuscular HGB Conc 33.1 g/dL Normal 32.0-35.0 [facility] Comment on above: Performed By: #### F OL, B12, HSCRP, ESR #### [address] #### WILL CHOICE, RA, LYME AB wRFX, SPE #### [facility] , Monocytes (Bld) [#/Vol] 0.4 10*3/uL Normal 0.0-0.8 [facility] Comment on above: Performed By: #### F OL, B12, HSCRP, ESR #### [place] [address] [place] #### WILL CHOICE, RA, LYME AB wRFX, SPE #### [facility] , Monocytes/100 WBC (Bld) 16.70 % Normal 0.00-20.00 [facility] Comment on above: Performed By: #### F OL, B12, HSCRP, ESR #### [address] #### WILL CHOICE, RA, LYME AB wRFX, SPE #### [facility] , Monocytes/100 WBC (Bld) 4.0 % Normal . [facility] Comment on above: Performed By: #### F OL, B12, HSCRP, ESR #### [address] #### WILL CHOICE, RA, LYME AB wRFX, SPE #### [facility] , Neutrophils (Bld) [#/Vol] 5.7 10*3/uL Normal 1.8-7.7 [facility] Comment on above: Performed By: #### F OL, B12, HSCRP, ESR #### [address] #### WILL CHOICE, RA, LYME AB wRFX, SPE #### [facility] , Neutrophils/100 WBC (Bld) 59.6 % Normal . [facility] Comment on above: Performed By: #### F OL, B12, HSCRP, ESR #### [place] [address] [place] #### WILL CHOICE, RA, LYME AB wRFX, SPE #### [facility] , NRBC% 0.1 /100{WBC} Normal 0-0.5 [facility] Comment on above: Performed By: #### F OL, B12, HSCRP, ESR #### [place] [address] [place] #### WILL CHOICE, RA, LYME AB wRFX, SPE #### [facility] , Platelet mean volume (Bld) [Entitic vol] 8.6 fL Normal 6.3-10.7 [facility] Comment on above: Performed By: #### F OL, B12, HSCRP, ESR #### [facility] [address] [place] [address] [place] #### WILL CHOICE, RA, LYME AB wRFX, SPE #### [facility] , Platelets (Bld) [#/Vol] 348 10*3/uL Normal 150-450 [facility] Comment on above: Performed By: #### F OL, B12, HSCRP, ESR #### [address] #### WILL CHOICE, RA, LYME AB wRFX, SPE #### [facility] , RBC (Bld) [#/Vol] 4.60 10*6/uL Normal 3.60-5.00 [facility] Comment on above: Performed By: #### F OL, B12, HSCRP, ESR #### [facility] [address] [place] [address] #### WILL CHOICE, RA, LYME AB wRFX, SPE #### [facility] , WBC (Bld) [#/Vol] 9.6 10*3/uL Normal 3.8-11.6 [facility] Comment on above: Performed By: #### F OL, B12, HSCRP, ESR #### [place] [address] [place] #### WILL CHOICE, RA, LYME AB wRFX, SPE #### [facility] , Creatinine [Mass/volume] in Serum or PlasmaOrdered By: Mariya Kumari on 12-30-2022 Creatinine [Mass/Vol] 0.56 mg/dL 0.60-1.20 [facility] D-Dimer High Sensitivityon 0 12-30-2022 D-Dimer High Sensitivity 334 ng/mL High 0-243 [facility] Comment on above: Result Comment: The [...] patients due to co-morbid conditions. PERFORMED BY: [place] [address] PATHOLOGIST COMMUNICATION SPECIALIST WENDY CLARK M.D. Performed By: #### F OL, B12, HSCRP, ESR #### [place] [address] [place] #### WILL CHOICE, RA, LYME AB wRFX, SPE #### [facility] , ECG 12 lead ECGon 12-30-2022 ECG 12 lead ECG [facility] [place] [address] [place] [address] Electrocardiograph Report Signed Patient: Lupe Pickard MR#: [id number] : 1975 Acct:[id number] Age/Sex: 47 / F ADM Date: 12/30/22 Loc: ER Room: Type: [facility] ER Attending Dr: Ordering Provider: Mariya Kumari [...] ST abnormality Confirmed by Quoc JOHN DO ([id number]) on 12/31/2022 12:07:56 AM Referred By: Electronically Signed By:Quoc JOHN DO Transcribed By: MUS Signed By Quoc John DO 0 12/31/22 0007 Normal [facility] Eosinophils Auto (Bld) [#/Vo l]Ordered By: Mariya Kumari on 12-30-2022 Eosinophils (Bld) [#/Vol] 0.1 10*3/uL 0.0-0.45 [facility] Eosinophils/100 WBC Auto (Bl d)Ordered By: Mariya Kumari on 12-30-2022 Eosinophils/100 WBC (Bld) 1.5 % . [facility] Erythrocyte distribution wid th Auto (RBC) [Ratio]Ordered By: Mariya Kumari on 12-30-2022 Erythrocyte distribution width (RBC) [Ratio] 14.4 % 11.9-15.3 [facility] Glucose [Mass/volume] in Ser um or PlasmaOrdered By: Mariya Kumari on 12-30-2022 Glucose [Mass/Vol] 87 mg/dL 70-100 [facility] Comment on above: ADA recommended refe rence rangeRandom Glucose Reference Range is dependent on time and content of last meal. Glucose of more than 200 mg/dL in a nonstressed, ambulatory subject supports the diagnosis of Diabetes Mellitus. Hematocrit Auto (Bld) [Volum e fraction]Ordered By: Mariya Kumari on 12-30-2022 Hematocrit (Bld) [Volume fraction] 40.1 % 34.0-46.4 [facility] Hemoglobin [Mass/volume] in BloodOrdered By: Mariya Kumari on 12-30-2022 Hemoglobin (Bld) [Mass/Vol] 13.3 g/dL 11.8-15.4 [facility] Laboratory - CoagulationOrde red By: Mariya Kumari on 12-30-2022 PT Coag (PPP) [Time] 10.9 s 9.0-12.9 [facility] Leukocytes [#/volume] correc emily for nucleated erythrocytes in Blood by Automated counOrdered By: Mariya Kumari on 12-30-2022 WBC corrected for nucl RBC Auto (Bld) [#/Vol] 9.6 10*3/uL 3.8-11.6 [facility] Lymphocytes Auto (Bld) [#/Vo l]Ordered By: Mariya Kumari on 12-30-2022 Lymphocytes (Bld) [#/Vol] 3.2 10*3/uL 1.00-4.8 [facility] Lymphocytes/100 WBC Auto (Bl d)Ordered By: Mariya Kumari on 12-30-2022 Lymphocytes/100 WBC (Bld) 33.6 % . [facility] MCH Auto (RBC) [Entitic mass ]Ordered By: Mariya Kumari on 12-30-2022 MCH (RBC) [Entitic mass] 28.8 pg 24.7-34.3 [facility] MCHC Auto (RBC) [Mass/Vol]Or dered By: Mariya Kumari on 12-30-2022 MCHC (RBC) [Mass/Vol] 33.1 g/dL 32.0-35.0 [facility] MCV Auto (RBC) [Entitic vol] Ordered By: Mariya Kumari on 12-30-2022 MCV (RBC) [Entitic vol] 87.2 fL 80-100 [facility] Magnesiumon 12-30-2022 Magnesium [Mass/Vol] 1.9 mg/dL Normal 1.9-2.7 [facility] Comment on above: Result Comment: PERF ORMED BY: [place] [address] PATHOLOGIST COMMUNICATION SPECIALIST WENDY CLARK M.D. Performed By: #### F OL, B12, HSCRP, ESR #### [facility] [address] [place] [address] [place] #### WILL CHOICE, RA, LYME AB wRFX, SPE #### [facility] , Magnesium [Mass/volume] in S zakia or PlasmaOrdered By: Mariya Kumari on 12-30-2022 Magnesium [Mass/Vol] 1.9 mg/dL 1.9-2.7 [facility] Monocyte distribution width [Entitic volume] in Blood by AutomatedOrdered By: Mariya Kumari on 12-30-2022 Monocyte distribution width Auto (Bld) [Entitic vol] 16.70 % 0.00-20.00 [facility] Monocytes Auto (Bld) [#/Vol] Ordered By: Mariya Kumari on 12-30-2022 Monocytes (Bld) [#/Vol] 0.4 10*3/uL 0.0-0.8 [facility] Monocytes/100 WBC Auto (Bld) Ordered By: Mariya Kumari on 12-30-2022 Monocytes/100 WBC (Bld) 4.0 % . [facility] Natriuretic peptide B [Mass/ Vol]Ordered By: Mariya Kumari on 12-30-2022 Natriuretic peptide B (Bld) [Mass/Vol] 55.0 pg/mL 5-100 [facility] Neutrophils Auto (Bld) [#/Vo l]Ordered By: Mariya Kumari on 12-30-2022 Neutrophils (Bld) [#/Vol] 5.7 10*3/uL 1.8-7.7 [facility] Neutrophils/100 WBC Auto (Bl d)Ordered By: Mariya Kumari on 12-30-2022 Neutrophils/100 WBC (Bld) 59.6 % . [facility] No Panel InformationOrdered By: Mariya Kumari on 12-30-2022 D-Dimer Quantitative (PE/DVT) 334 ng/mL 0-243 [facility] Comment on above: The reference range for D-dimer is <243 ng/mL D-dimer units.D-dimer results must be used in conjunction with a clinicalpretest probability (PTP) assessment model for deep veinthrombosis (DVT) and pulmonary embolism (PE). Results <230ng/mL d-dimer units can be used as a negative predictor inpatients with low or moderate probability for DVT/PE.Results above the exclusion threshold of 230 ng/ml D-dimerunits for DVT/PE may indicate the need for furtherdiagnostic testing.D-Dimer can be increased in hospitalized patients due toco-morbid conditions. Estimated GFR (CKD-EPI) > 60.0 mL/Min [facility] Creatinine Clearance (Chem 171.83 [facility] Nucleated erythrocytes [Pres ence] in Blood by Automated countOrdered By: Mariya Kumari on 12-30-2022 Nucleated RBC Auto Ql (Bld) 0.1 /100{WBC} 0-0.5 [facility] Partial Thromboplastin Timeo n 12-30-2022 aPTT Coag (Bld) [Time] 30.5 s Normal 25.1-36.5 [facility] Comment on above: Performed By: #### F OL, B12, HSCRP, ESR #### [facility] [address] [place] [address] #### WILL CHOICE, RA, LYME AB wRFX, SPE #### [facility] , Platelet mean volume Auto (B ld) [Entitic vol]Ordered By: Mariya Kumari on 12-30-2022 Platelet mean volume (Bld) [Entitic vol] 8.6 fL 6.3-10.7 [facility] Platelet poor plasma interna tional normalized ratio (INR) by coagulation assay (relatOrdered By: Mariya Kumari on 12-30-2022 INR Coag (PPP) [Relative time] 0.9 {INR} [facility] Comment on above: INR Therapeutic Rang [...] 12-30-2022 Platelets (Bld) [#/Vol] 348 10*3/uL 150-450 [facility] Potassium [Moles/volume] in Serum or PlasmaOrdered By: Mariya Kumari on 12-30-2022 Potassium [Moles/Vol] 3.7 mmol/L 3.5-5.1 [facility] Prothrombin Time INRon 12-30 INR Coag (PPP) [Relative time] 0.9 {INR} Normal [facility] Comment on above: Result Comment: INR [...] valves: 3 - 4.5 Performed By: #### F OL, B12, HSCRP, ESR #### [facility] [address] [place] [address] #### WILL JEWEL, RA, LYME AB wRFX, SPE #### [facility] , PT Coag (PPP) [Time] 10.9 s Normal 9.0-12.9 [facility] Comment on above: Performed By: #### F OL, B12, HSCRP, ESR #### [facility] [address] [place] [address] [place] #### WILL CHOICE, RA, LYME AB wRFX, SPE #### [facility] , RBC Auto (Bld) [#/Vol]Ordere d By: Mariya Kumari on 12-30-2022 RBC (Bld) [#/Vol] 4.60 10*6/uL 3.60-5.00 [facility] Serum or plasma anion gap de terminationOrdered By: Mariya Kumari on 12-30-2022 Anion gap [Moles/Vol] 11.7 mmol/L 6.0-15.0 [facility] Sodium [Moles/volume] in Ser um or PlasmaOrdered By: Mariya Kumari on 12-30-2022 Sodium [Moles/Vol] 140 mmol/L 136-145 [facility] Troponin I High Sensitivityo n 12-30-2022 Troponin I High Sensitivity 2.4 pg/mL Normal 0.0-15.0 [facility] Comment on above: Result Comment: PERF ORMED BY: [place] [address] PATHOLOGIST COMMUNICATION SPECIALIST WENDY CLARK M.D. Performed By: #### F OL, B12, HSCRP, ESR #### [facility] [address] [place] [address] [place] #### WILL CHOICE, RA, LYME AB wRFX, SPE #### [facility] , Troponin I.cardiac [Mass/vol ume] in Serum or Plasma by Detection limit <= 0.01 ng/Ordered By: Mariya Kumari on 12-30-2022 Troponin I.cardiac DL <= 0.01 ng/mL [Mass/Vol] 2.4 pg/mL 0.0-15.0 [facility] Urea nitrogen [Mass/volume] in Serum or PlasmaOrdered By: Mariya Kumari on 08-03-2023 Urea nitrogen [Mass/Vol] 7 mg/dL 7 [facility] WBC Auto (Bld) [#/Vol]Ordere d By: Mariya Kumari on 12-30-2022 WBC (Bld) [#/Vol] 9.6 10*3/uL 3.8-11.6 [facility] XR chest 2V*on 12-30-2022 XR chest 2V* [facility] [place] [address] XRay Report Signed Patient: Lupe Pickard MR#: [id number] : 1975 Acct:[id number] Age/Sex: 47 / F ADM Date: 12/30/22 Loc: ER Room: Type: [facility] ER Attending Dr: Copies to: Mariya Kumari [...] Ernie Roper M.D.12/30/2022 6:06 PM Dictation Location: [place] [address] Transcribed By: BOB 12/30/221805 Dictated By: Ernie Roper II, MD 12/30/221804 Signed By: 12/30/22 180 Normal [facility] MM screening mammo BI w/CADo n 12-29-2022 MM screening mammo BI w/CAD [facility] Main [address] [address] Mammography Report Signed Patient: Lupe Pickard MR#: [id number] : 1975 Acct:[id number] Age/Sex: 47 / F ADM Date: 12/29/22 Loc: [place] Room: Type: REG CLI Attending Dr: Amanda Montiel MD Copies to: NO FAMILY PHYSICIAN Amanda Montiel MD-NOMS Ordering Provider: JOVANY Horan Date of Service: 12/29/22 MM/MM screening mammo BI w/CAD: screening;Encounter for screening mammogram for malignant ne CLINICAL DATA: Screening for malignancy. SCREENING MAMMOGRAM - FULL FIELD DIGITAL WITH TOMOSYNTHESIS AND CAD COMPARISON:Mammogram s dating back to 2018 Tomosynthesis craniocaudal and [...] mammogram. Impression dictated by: Bob Neff Jr., DJayceeOJaycee12/29/2022 2:57 PM Dictation Location: [facility] Transcribed By: [facility] 12/29/221456 Dictated By: Bob Neff Jr, DO 12/29/221456 Signed By: 12/29/221456 [facility] Consent for Treatmenton 11-28 Consent for Treatment [id number] #1.00CD:127 [facility] Heart and Vascular Office/Cl inic Noteon 12-24-2022 Heart and Vascular Office/Clinic Note History of Present Illness Patient is a very pleasant 47-year-old morbidly obese nondiabetic female with a history of fibromyalgia, GERD, former smoker quit more than 30 years ago, referred to our office for palpitations. Patient was originally referred to [facility] with Dr. Ross and she provided several [...] was told it was okay by her tin plater. Given the patient's family history of heart disease she wanted a second opinion. The patient went to the emergency room [address] [facility] where her blood pressure was found to [...] aggressive L (more content not included)... Normal [facility] Comment on above: Result Comment: Elec tronically Signed By: Santy PELAYO, Franklyn Johnson.chanel\Date and Time Signed: 12/24/22 11:34 EDT Physician Orderon 12-24-2022 Physician Order [id number]#[id number]:127 Normal [facility] Physician Referralon 023 Physician Referral [id number] #1.00CD:127 Normal [facility] Activated partial thrombopla stin time (aPTT) in platelet poor plasma by coagulation aOrdered By: Josué Napier on 12-20-2022 aPTT Coag (PPP) [Time] 31.8 s 25.1-36.5 [facility] Alanine aminotransferase [En zymatic activity/volume] in Serum or PlasmaOrdered By: Josué Napier on 12-20-2022 ALT [Catalytic activity/Vol] 12 U/L Normal 7-52 [facility] Comment on above: Performed By: #### F OL, B12, HSCRP, ESR #### [facility] [address] [place] [address] [place] #### WILL CHOICE, RA, LYME AB wRFX, SPE #### [facility] , Albumin [Mass/volume] in Ser um or Plasma by Bromocresol green (BCG) dye binding methoOrdered By: Josué Napier on 12-20-2022 Albumin BCG dye [Mass/Vol] 4.4 g/dL 3.5-5.7 [facility] Alkaline phosphatase [Enzyma tic activity/volume] in Serum or PlasmaOrdered By: Josué Napier on 12-20-2022 ALP [Catalytic activity/Vol] 49 U/L Normal 34-104 [facility] Comment on above: Performed By: #### F OL, B12, HSCRP, ESR #### [facility] [address] [place] [address] [place] #### WILL CHOICE, RA, LYME AB wRFX, SPE #### [facility] , Amphetamine Screen Ql (U)Ord ered By: Josué Napier on 12-20-2022 Amphetamines Ql (U) Negative Negative [facility] Aspartate aminotransferase [ Enzymatic activity/volume] in Serum or PlasmaOrdered By: Josué Napier on 12-20-2022 AST [Catalytic activity/Vol] 11 U/L Low 13-39 [facility] Comment on above: Performed By: #### F OL, B12, HSCRP, ESR #### [facility] [address] [place] [address] #### WILL CHOICE, RA, LYME AB wRFX, SPE #### [facility] , Automated basophil %Ordered By: Josué Napier on 12-20-2022 Basophils/100 WBC (Bld) 0.2 % Normal . [facility] Comment on above: Performed By: #### F OL, B12, HSCRP, ESR #### [facility] [address] [place] [address] #### WILL CHOICE, RA, LYME AB wRFX, SPE #### [facility] , Automated basophil countOrde red By: Josué Npaier on 12-20-2022 Basophils (Bld) [#/Vol] 0.0 10*3/uL Normal 0.0-0.2 [facility] Comment on above: Result Comment: PERF ORMED BY: [place] [address] PATHOLOGIST COMMUNICATION SPECIALIST WENDY CLARK M.D. Performed By: #### F OL, B12, HSCRP, ESR #### [address] #### WILL CHOICE, RA, LYME AB wRFX, SPE #### [facility] , Automated blood monocyte cou ntOrdered By: Josué Napier on 12-20-2022 Monocytes (Bld) [#/Vol] 0.4 10*3/uL Normal 0.0-0.8 [facility] Comment on above: Performed By: #### F OL, B12, HSCRP, ESR #### [place] [address] [place] #### WILL CHOICE, RA, LYME AB wRFX, SPE #### [facility] , Automated eosinophil %Ordere d By: Josué Napier on 12-20-2022 Eosinophils/100 WBC (Bld) 1.1 % Normal . [facility] Comment on above: Performed By: #### F OL, B12, HSCRP, ESR #### [facility] [address] [place] [address] [place] #### WILL CHOICE, RA, LYME AB wRFX, SPE #### [facility] , Automated eosinophil countOr dered By: Josué Napier on 12-20-2022 Eosinophils (Bld) [#/Vol] 0.1 10*3/uL Normal 0.0-0.45 [facility] Comment on above: Performed By: #### F OL, B12, HSCRP, ESR #### [facility] [address] [place] [address] [place] #### WILL CHOICE, RA, LYME AB wRFX, SPE #### [facility] , Automated monocyte %Ordered By: Josué Napier on 12-20-2022 Monocytes/100 WBC (Bld) 4.1 % Normal . [facility] Comment on above: Performed By: #### F OL, B12, HSCRP, ESR #### [facility] [address] [place] [address] [place] #### WILL CHOICE, RA, LYME AB wRFX, SPE #### [facility] , Automated neutrophil %Ordere d By: Josué Napier on 12-20-2022 Neutrophils/100 WBC (Bld) 67.7 % Normal . [facility] Comment on above: Performed By: #### F OL, B12, HSCRP, ESR #### [facility] [address] [place] [address] [place] #### WILL CHOICE, RA, LYME AB wRFX, SPE #### [facility] , Barbiturates [Presence] in U rine by Screen methodOrdered By: Josué Napier on 12-20-2022 Barbiturates Screen Ql (U) Negative Negative [facility] Benzodiazepines Screen Ql (U )Ordered By: Josué Napier on 12-20-2022 Benzodiazepines Ql (U) Negative Negative [facility] Benzoylecgonine [Presence] i n Urine by Screen methodOrdered By: Josué Napier on 12-20-2022 Benzoylecgonine Screen Ql (U) Negative Negative [facility] Bilirubin Test strip Ql (U)O rdered By: Josué Napier on 12-20-2022 Bilirubin Ql (U) Negative Negative [facility] Bilirubin.total [Mass/volume ] in Serum or PlasmaOrdered By: Josué Napier on 12-20-2022 Bilirubin [Mass/Vol] 0.3 mg/dL Normal 0.3-1.0 [facility] Comment on above: Performed By: #### F OL, B12, HSCRP, ESR #### [facility] [address] [place] [address] [place] #### WILL CHOICE, RA, LYME AB wRFX, SPE #### [facility] , Calcium [Mass/volume] in Ser um or PlasmaOrdered By: Josué Napier on 12-20-2022 Calcium [Mass/Vol] 9.2 mg/dL Normal 8.6-10.3 [facility] Comment on above: Performed By: #### F OL, B12, HSCRP, ESR #### [facility] [address] [place] [address] [place] #### WILL CHOICE, RA, LYME AB wRFX, SPE #### [facility] , Cannabinoids [Presence] in U rine by Screen methodOrdered By: Josué Napier on 12-20-2022 Cannabinoids Screen Ql (U) Negative Negative [facility] Comment on above: These are unconfirme d results and should not be used for legal purposes. Drug Cut-Off Concentration: AMPH 1000 ng/mL MEKHI 200 ng/mL NURY 200 ng/mL COCM 300 ng/mL OP 300 ng/mL PCP 25 ng/mL THC 20 ng/mL Carbon dioxide, total [Moles /volume] in Serum or PlasmaOrdered By: Josué Napier on 12-20-2022 CO2 [Moles/Vol] 28.6 mmol/L Normal 21.0-31.0 [facility] Comment on above: Performed By: #### F OL, B12, HSCRP, ESR #### [facility] [address] [place] [address] [place] #### WILL CHOICE, RA, LYME AB wRFX, SPE #### [facility] , Chloride [Moles/volume] in S zakia or PlasmaOrdered By: Josué Napier on 12-20-2022 Chloride [Moles/Vol] 104 mmol/L Normal 98-107 [facility] Comment on above: Performed By: #### F OL, B12, HSCRP, ESR #### [facility] [address] [place] [address] #### WILL CHOICE, RA, LYME AB wRFX, SPE #### [facility] , Color Auto (U)Ordered By: Randolph Napier on 12-20-2022 Color (U) Yellow Yellow [facility] Complete Blood Count Auto Di ffon 12-20-2022 Mean Corpuscular HGB Conc 33.6 g/dL Normal 32.0-35.0 [facility] Comment on above: Performed By: #### F OL, B12, HSCRP, ESR #### [facility] [address] [place] [address] [place] #### WILL CHOICE, RA, LYME AB wRFX, SPE #### [facility] , Monocytes/100 WBC (Bld) 18.26 % Normal 0.00-20.00 [facility] Comment on above: Performed By: #### F OL, B12, HSCRP, ESR #### [facility] [address] [place] [address] [place] #### WILL CHOICE, RA, LYME AB wRFX, SPE #### [facility] , NRBC% 0.1 /100{WBC} Normal 0-0.5 [facility] Comment on above: Performed By: #### F OL, B12, HSCRP, ESR #### [facility] [address] [place] [address] [place] #### WILL CHOICE, RA, LYME AB wRFX, SPE #### [facility] , Comprehensive Metabolic Pane soniya 12-20-2022 Albumin [Mass/Vol] 4.4 g/dL Normal 3.5-5.7 [facility] Comment on above: Performed By: #### F OL, B12, HSCRP, ESR #### [facility] [address] [place] [address] [place] #### WILL CHOICE, RA, LYME AB wRFX, SPE #### [facility] , Creatinine Clr Calc Pharmacy 168.35 [facility] Comment on above: Performed By: #### F OL, B12, HSCRP, ESR #### [facility] [address] [place] [address] [place] #### WILL CHOICE, RA, LYME AB wRFX, SPE #### [facility] , GFR/1.73 sq M.predicted MDRD (S/P/Bld) [Vol rate/Area] mL/min/{1.73_m2} [facility] Comment on above: Performed By: #### F OL, B12, HSCRP, ESR #### [facility] [address] [place] [address] [place] #### WILL CHOICE, RA, LYME AB wRFX, SPE #### [facility] , Creatine kinase [Enzymatic a ctivity/volume] in Serum or PlasmaOrdered By: Josué Napier on 12-20-2022 CK [Catalytic activity/Vol] 46 U/L Normal 30-223 [facility] Comment on above: Performed By: #### F OL, B12, HSCRP, ESR #### [facility] [address] [place] [address] [place] #### WILL CHOICE, RA, LYME AB wRFX, SPE #### [facility] , Creatinine [Mass/volume] in Serum or PlasmaOrdered By: Josué Napier on 12-20-2022 Creatinine [Mass/Vol] 0.57 mg/dL Low 0.60-1.20 [facility] Comment on above: Performed By: #### F OL, B12, HSCRP, ESR #### [address] #### WILL CHOICE, RA, LYME AB wRFX, SPE #### [facility] , Drug Screen,Urineon 12-21-19 23 Amphetamine Screen,Urine Negative Normal Negative [facility] Comment on above: Performed By: #### F OL, B12, HSCRP, ESR #### [place] [address] [place] #### WILL CHOICE, RA, LYME AB wRFX, SPE #### [facility] , Barbiturate Screen,Urine Negative Normal Negative [facility] Comment on above: Performed By: #### F OL, B12, HSCRP, ESR #### [address] #### WILL CHOICE, RA, LYME AB wRFX, SPE #### [facility] , Benzodiazepines Screen,Urine Negative Normal Negative [facility] Comment on above: Performed By: #### F OL, B12, HSCRP, ESR #### [address] #### WILL CHOICE, RA, LYME AB wRFX, SPE #### [facility] , Cannabinoid Screen,Urine Negative Normal Negative [facility] Comment on above: Result Comment: Thes e are unconfirmed results and should not be used for legal purposes. Drug Cut-Off Concentration: AMPH 1000 ng/mL MEKHI 200 ng/mL NURY 200 ng/mL COCM 300 ng/mL OP 300 ng/mL PCP 25 ng/mL THC 20 ng/mL PERFORMED BY: [place] [address] PATHOLOGIST COMMUNICATION SPECIALIST WENDY CLARK M.D. Performed By: #### F OL, B12, HSCRP, ESR #### [place] [address] [place] #### WILL CHOICE, RA, LYME AB wRFX, SPE #### [facility] , Cocaine Screen,Urine Negative Normal Negative [facility] Comment on above: Performed By: #### F OL, B12, HSCRP, ESR #### [facility] [address] [place] [address] #### WILL CHOICE, RA, LYME AB wRFX, SPE #### [facility] , Opiate Screen,Urine Negative Normal Negative [facility] Comment on above: Performed By: #### F OL, B12, HSCRP, ESR #### [facility] [address] [place] [address] [place] #### WILL CHOICE, RA, LYME AB wRFX, SPE #### [facility] , Phencyclidine Screen,Urine Negative Normal Negative [facility] Comment on above: Performed By: #### F OL, B12, HSCRP, ESR #### [address] #### WILL CHOICE, RA, LYME AB wRFX, SPE #### [facility] , ECG 12 lead ECGon 12-20-2022 ECG 12 lead ECG [facility] [place] [address] [place] [address] Electrocardiograph Report Signed Patient: Lupe Pickard MR#: [id number] : 1975 Acct:[id number] Age/Sex: 47 / F ADM Date: 12/20/22 Loc: ER Room: Type: [facility] ER Attending Dr: Ordering Provider: Josué Napier PA-C Date of Service: 12/20/22 ECG/ECG 12 lead ECG: Arrhythmia/Palpitati ons Copies to: Test Reason : Blood Pressure : 183/106 mmHG Vent. Rate : 071 BPM Atrial Rate : 071 BPM P-R Int : 140 ms QRS Dur : 074 ms QT Int : 384 ms P-R-T Axes : 004 -19 011 degrees QTc Int : 417 ms Normal sinus rhythm Left ventricular hypertrophy Confirmed by Yogi Mcgraw DO ([id number]) on 12/20/2022 4:21:20 PM Referred By: Electronically Signed By:Yogi Mcgraw DO Transcribed By: MUS Signed By Yogi Mcgraw DO 1621 Normal [facility] Erythrocyte distribution wid th [Ratio] by Automated countOrdered By: Josué Napier on 12-20-2022 Erythrocyte distribution width (RBC) [Ratio] 14.4 % Normal 11.9-15.3 [facility] Comment on above: Performed By: #### F OL, B12, HSCRP, ESR #### [facility] [address] [place] [address] [place] #### WILL CHOICE, RA, LYME AB wRFX, SPE #### [facility] , Erythrocytes [#/volume] in B lood by Automated countOrdered By: Josué Napier on 12-20-2022 RBC (Bld) [#/Vol] 4.68 10*6/uL Normal 3.60-5.00 [facility] Comment on above: Performed By: #### F OL, B12, HSCRP, ESR #### [place] [address] [place] #### WILL CHOICE, RA, LYME AB wRFX, SPE #### [facility] , Glucose [Mass/volume] in Ser um or PlasmaOrdered By: Josué Napier on 12-20-2022 Glucose [Mass/Vol] 97 mg/dL Normal 70-100 [facility] Comment on above: ADA recommended refe rence rangeRandom Glucose Reference Range is dependent on time and content of last meal. Glucose of more than 200 mg/dL in a nonstressed, ambulatory subject supports the diagnosis of Diabetes Mellitus. Result Comment: [place] om Glucose Reference Range is dependent on time and content of last meal. Glucose of more than 200 mg/dL in a nonstressed, ambulatory subject supports the diagnosis of Diabetes Mellitus. ADA recommended reference range Performed By: #### F OL, B12, HSCRP, ESR #### [facility] [address] [place] [address] [place] #### WILL CHOICE, RA, LYME AB wRFX, SPE #### [facility] , Hematocrit [Volume Fraction] of Blood by Automated countOrdered By: Josué Napier on 12-20-2022 Hematocrit (Bld) [Volume fraction] 40.7 % Normal 34.0-46.4 [facility] Comment on above: Performed By: #### F OL, B12, HSCRP, ESR #### [facility] [address] [place] [address] [place] #### WILL CHOICE, RA, LYME AB wRFX, SPE #### [facility] , Hemoglobin [Mass/volume] in BloodOrdered By: Josué Napier on 12-20-2022 Hemoglobin (Bld) [Mass/Vol] 13.7 g/dL Normal 11.8-15.4 [facility] Comment on above: Performed By: #### F OL, B12, HSCRP, ESR #### [facility] [address] [place] [address] [place] #### WILL CHOICE, RA, LYME AB wRFX, SPE #### [facility] , Ketones Auto test strip (U) [Mass/Vol]Ordered By: Josué Napier on 12-20-2022 Ketones (U) [Mass/Vol] Negative Negative [facility] Leukocytes [#/volume] correc emily for nucleated erythrocytes in Blood by Automated counOrdered By: Josué Napier on 12-20-2022 WBC corrected for nucl RBC Auto (Bld) [#/Vol] 10.0 10*3/uL 3.8-11.6 [facility] Leukocytes [#/volume] in Blo od by Automated countOrdered By: Josué Napier on 12-20-2022 WBC (Bld) [#/Vol] 10.0 10*3/uL Normal 3.8-11.6 [facility] Comment on above: Performed By: #### F OL, B12, HSCRP, ESR #### [facility] [address] [place] [address] [place] #### WILL CHOICE, RA, LYME AB wRFX, SPE #### [facility] , Lymphocytes [#/volume] in Bl ood by Automated countOrdered By: Josué Napier on 12-20-2022 Lymphocytes (Bld) [#/Vol] 2.7 10*3/uL Normal 1.00-4.8 [facility] Comment on above: Performed By: #### F OL, B12, HSCRP, ESR #### [facility] [address] [place] [address] [place] #### WILL CHOICE, RA, LYME AB wRFX, SPE #### [facility] , Lymphocytes/100 leukocytes i n Blood by Automated countOrdered By: Josué Napier on 12-20-2022 Lymphocytes/100 WBC (Bld) 26.9 % Normal . [facility] Comment on above: Performed By: #### F OL, B12, HSCRP, ESR #### [place] [address] [place] #### WILL CHOICE, RA, LYME AB wRFX, SPE #### [facility] , MCH [Entitic mass] by Automa emily countOrdered By: Josué Napier on 12-20-2022 MCH (RBC) [Entitic mass] 29.2 pg Normal 24.7-34.3 [facility] Comment on above: Performed By: #### F OL, B12, HSCRP, ESR #### [address] #### WILL CHOICE, RA, LYME AB wRFX, SPE #### [facility] , MCHC Auto (RBC) [Mass/Vol]Or dered By: Josué Napier on 12-20-2022 MCHC (RBC) [Mass/Vol] 33.6 g/dL 32.0-35.0 [facility] MCV [Entitic volume] by Auto mated countOrdered By: oJsué Napier on 12-20-2022 MCV (RBC) [Entitic vol] 86.9 fL Normal 80-100 [facility] Comment on above: Performed By: #### F OL, B12, HSCRP, ESR #### [facility] [address] [place] [address] #### WILL CHOICE, RA, LYME AB wRFX, SPE #### [facility] , Magnesium [Mass/volume] in S zakia or PlasmaOrdered By: Josué Napier on 12-20-2022 Magnesium [Mass/Vol] 1.8 mg/dL Low 1.9-2.7 [facility] Comment on above: Performed By: #### F OL, B12, HSCRP, ESR #### [facility] [address] [place] [address] #### WILL CHOICE, RA, LYME AB wRFX, SPE #### [facility] , Monocyte distribution width [Entitic volume] in Blood by AutomatedOrdered By: Josué Napier on 12-20-2022 Monocyte distribution width Auto (Bld) [Entitic vol] 18.26 % 0.00-20.00 [facility] Neutrophils [#/volume] in Bl ood by Automated countOrdered By: Josué Napier on 12-20-2022 Neutrophils (Bld) [#/Vol] 6.8 10*3/uL Normal 1.8-7.7 [facility] Comment on above: Performed By: #### F OL, B12, HSCRP, ESR #### [facility] [address] [place] [address] #### WILL CHOICE, RA, LYME AB wRFX, SPE #### [facility] , Nitrite Test strip Ql (U)Ord ered By: Josué Napier on 12-20-2022 Nitrite Ql (U) Negative Negative [facility] No Panel InformationOrdered By: Josué Napier on 12-20-2022 Estimated GFR (CKD-EPI) > 60.0 mL/Min [facility] Creatinine Clearance (Chem 168.35 [facility] Nucleated erythrocytes [Pres ence] in Blood by Automated countOrdered By: Josué Napier on 12-20-2022 Nucleated RBC Auto Ql (Bld) 0.1 /100{WBC} 0-0.5 [facility] Opiates [Presence] in Urine by Screen methodOrdered By: Josué Napier on 12-20-2022 Opiates Screen Ql (U) Negative Negative [facility] Partial Thromboplastin Timeo n 12-20-2022 aPTT Coag (Bld) [Time] 31.8 s Normal 25.1-36.5 [facility] Comment on above: Result Comment: PERF ORMED BY: [place] [address] PATHOLOGIST COMMUNICATION SPECIALIST WENDY CLARK M.D. Performed By: #### F OL, B12, HSCRP, ESR #### [facility] [address] [place] [address] #### WILL CHOICE, RA, LYME AB wRFX, SPE #### [facility] , Phencyclidine Screen Ql (U)O rdered By: Josué Napier on 12-20-2022 Phencyclidine Ql (U) Negative Negative [facility] Platelet mean volume [Entiti c volume] in Blood by Automated countOrdered By: Josué Napier on 12-20-2022 Platelet mean volume (Bld) [Entitic vol] 8.3 fL Normal 6.3-10.7 [facility] Comment on above: Performed By: #### F OL, B12, HSCRP, ESR #### [facility] [address] [place] [address] [place] #### WILL CHOICE, RA, LYME AB wRFX, SPE #### [facility] , Platelet poor plasma interna tional normalized ratio (INR) by coagulation assay (relatOrdered By: Josué Napier on 12-20-2022 INR Coag (PPP) [Relative time] 1.0 {INR} Normal [facility] Comment on above: INR Therapeutic Rang [...] valves: 3 - 4.5 Performed By: #### F OL, B12, HSCRP, ESR #### [facility] [address] [place] [address] [place] #### WILL CHOICE, RA, LYME AB wRFX, SPE #### [facility] , Platelets [#/volume] in Bloo d by Automated countOrdered By: Josué Napier on 12-20-2022 Platelets (Bld) [#/Vol] 349 10*3/uL Normal 150-450 [facility] Comment on above: Performed By: #### F OL, B12, HSCRP, ESR #### [place] [address] [place] #### WILL CHOICE, RA, LYME AB wRFX, SPE #### [facility] , Potassium [Moles/volume] in Serum or PlasmaOrdered By: Josué Napier on 12-20-2022 Potassium [Moles/Vol] 3.9 mmol/L Normal 3.5-5.1 [facility] Comment on above: Performed By: #### F OL, B12, HSCRP, ESR #### [place] [address] [place] #### WILL CHOICE, RA, LYME AB wRFX, SPE #### [facility] , Protein Auto test strip (U) [Mass/Vol]Ordered By: Josué Napier on 12-20-2022 Protein (U) [Mass/Vol] Negative Negative [facility] Protein [Mass/volume] in Ser um or PlasmaOrdered By: Josué Napier on 12-20-2022 Protein [Mass/Vol] 7.5 g/dL Normal 6.4-8.9 [facility] Comment on above: Performed By: #### F OL, B12, HSCRP, ESR #### [facility] [address] [place] [address] [place] #### WILL CHOICE, RA, LYME AB wRFX, SPE #### [facility] , Prothrombin Time INROrdered By: Josué Napier on 12-20-2022 PT Coag (PPP) [Time] 11.8 s Normal 9.0-12.9 [facility] Comment on above: Performed By: #### F OL, B12, HSCRP, ESR #### [facility] [address] [place] [address] [place] #### WILL CHOICE, RA, LYME AB wRFX, SPE #### [facility] , Serum globulin measurement b y calculation (mass/volume)Ordered By: Josué Napier on 12-20-2022 Globulin (S) [Mass/Vol] 3.1 g/dL Normal [facility] Comment on above: Performed By: #### F OL, B12, HSCRP, ESR #### [facility] [address] [place] [address] #### WILL CHOICE, RA, LYME AB wRFX, SPE #### [facility] , Serum or plasma albumin/glob ulin mass ratioOrdered By: Josué Napier on 12-20-2022 Albumin/Globulin [Mass ratio] 1.4 {ratio} [facility] Comment on above: Performed By: #### F OL, B12, HSCRP, ESR #### [facility] [address] [place] [address] [place] #### WILL CHOICE, RA, LYME AB wRFX, SPE #### [facility] , Serum or plasma anion gap de terminationOrdered By: Josué Napier on 12-20-2022 Anion gap [Moles/Vol] 10.3 mmol/L Normal 6.0-15.0 [facility] Comment on above: Performed By: #### F OL, B12, HSCRP, ESR #### [facility] [address] [place] [address] [place] #### WILL CHOICE, RA, LYME AB wRFX, SPE #### [facility] , Sodium [Moles/volume] in Ser um or PlasmaOrdered By: Josué Napier on 12-20-2022 Sodium [Moles/Vol] 139 mmol/L Normal 136-145 [facility] Comment on above: Performed By: #### F OL, B12, HSCRP, ESR #### [address] #### WILL CHOICE, RA, LYME AB wRFX, SPE #### [facility] , Specific gravity Auto test s trip (U) [Rel density]Ordered By: Josué Napier on 12-20-2022 Specific gravity (U) [Rel density] 1.005 1.001-1.030 [facility] Thyrotropin [Units/volume] i n Serum or PlasmaOrdered By: Josué Napier on 12-20-2022 TSH Qn 0.23 m[IU]/L Low 0.45-5.33 [facility] Comment on above: Result Comment: PERF ORMED BY: [place] [address] PATHOLOGIST COMMUNICATION SPECIALIST WENDY CLARK M.D. Performed By: #### F OL, B12, HSCRP, ESR #### [address] #### WILL CHOICE, RA, LYME AB wRFX, SPE #### [facility] , Thyroxine (T4) [Mass/volume] in Serum or PlasmaOrdered By: Josué Napier on 12-20-2022 T4 [Mass/Vol] 9.01 ug/dL Normal 5.39-11.82 [facility] Comment on above: Performed By: #### F OL, B12, HSCRP, ESR #### [address] #### WILL CHOICE, RA, LYME AB wRFX, SPE #### [facility] , Troponin I High Sensitivityo n 12-20-2022 Troponin I High Sensitivity < 2.3 Normal 0.0-15.0 [facility] Comment on above: Result Comment: PERF ORMED BY: [place] [address] PATHOLOGIST COMMUNICATION SPECIALIST WENDY CLARK M.D. Performed By: #### F OL, B12, HSCRP, ESR #### [address] [address] [place] #### WILL CHOICE, RA, LYME AB wRFX, SPE #### [facility] , Troponin I.cardiac [Mass/vol ume] in Serum or Plasma by Detection limit <= 0.01 ng/Ordered By: Josué Napier on 12-20-2022 Troponin I.cardiac DL <= 0.01 ng/mL [Mass/Vol] < 2.3 pg/mL 0.0-15.0 [facility] Urea nitrogen [Mass/volume] in Serum or PlasmaOrdered By: Josué Napier on 12-20-2022 Urea nitrogen [Mass/Vol] 9 mg/dL Normal 7-25 [facility] Comment on above: Performed By: #### F OL, B12, HSCRP, ESR #### [facility] [address] [place] [address] #### WILL CHOICE, RA, LYME AB wRFX, SPE #### [facility] , Urinalysison 12-20-2022 Appearance (U) Clear Normal Clear [facility] Comment on above: Order Comment: Name Collection Type:: Clean-Voided Midstream Performed By: #### F OL, B12, HSCRP, ESR #### [facility] [address] [place] [address] #### WILL CHOICE, RA, LYME AB wRFX, SPE #### [facility] , Bilirubin,Urine Negative Normal Negative [facility] Comment on above: Order Comment: Name Collection Type:: Clean-Voided Midstream Performed By: #### F OL, B12, HSCRP, ESR #### [facility] [address] [place] [address] [place] #### WILL CHOICE, RA, LYME AB wRFX, SPE #### [facility] , Color (U) Yellow Normal Yellow [facility] Comment on above: Order Comment: Name Collection Type:: Clean-Voided Midstream Performed By: #### F OL, B12, HSCRP, ESR #### [facility] [address] [place] [address] [place] #### WILL CHOICE, RA, LYME AB wRFX, SPE #### [facility] , Glucose Ql (U) Normal Normal Normal [facility] Comment on above: Order Comment: Name Collection Type:: Clean-Voided Midstream Performed By: #### F OL, B12, HSCRP, ESR #### [facility] [address] [place] [address] #### WILL CHOICE, RA, LYME AB wRFX, SPE #### [facility] , Ketones Ql (U) Negative Normal Negative [facility] Comment on above: Order Comment: Name Collection Type:: Clean-Voided Midstream Performed By: #### F OL, B12, HSCRP, ESR #### [address] #### WILL CHOICE, RA, LYME AB wRFX, SPE #### [facility] , Leukocyte esterase Test strip Ql (U) Negative Normal Negative [facility] Comment on above: Order Comment: Name Collection Type:: Clean-Voided Midstream Performed By: #### F OL, B12, HSCRP, ESR #### [address] #### WILL CHOICE, RA, LYME AB wRFX, SPE #### [facility] , Nitrite,Urine Negative Normal Negative [facility] Comment on above: Order Comment: Name Collection Type:: Clean-Voided Midstream Performed By: #### F OL, B12, HSCRP, ESR #### [facility] [address] [place] [address] #### WILL CHOICE, RA, LYME AB wRFX, SPE #### [facility] , Occult Blood,Urine Negative Normal Negative [facility] Comment on above: Order Comment: Name Collection Type:: Clean-Voided Midstream Result Comment: PERF ORMED BY: [place] [address] PATHOLOGIST COMMUNICATION SPECIALIST WENDY CLARK M.D. Performed By: #### F OL, B12, HSCRP, ESR #### [address] #### WILL CHOICE, RA, LYME AB wRFX, SPE #### [facility] , pH (U) 6.5 [pH] Normal 5.0-9.0 [facility] Comment on above: Order Comment: Name Collection Type:: Clean-Voided Midstream Performed By: #### F OL, B12, HSCRP, ESR #### [address] #### WILL CHOICE, RA, LYME AB wRFX, SPE #### [facility] , Protein,Urine Negative Normal Negative [facility] Comment on above: Order Comment: Name Collection Type:: Clean-Voided Midstream Performed By: #### F OL, B12, HSCRP, ESR #### [address] #### WILL CHOICE, RA, LYME AB wRFX, SPE #### [facility] , Specificy [place],Urine 1.005 Normal 1.001-1.030 [facility] Comment on above: Order Comment: Name Collection Type:: Clean-Voided Midstream Performed By: #### F OL, B12, HSCRP, ESR #### [address] #### WILL CHOICE, RA, LYME AB wRFX, SPE #### [facility] , Urobilinogen,Urine Normal Normal Normal [facility] Comment on above: Order Comment: Name Collection Type:: Clean-Voided Midstream Performed By: #### F OL, B12, HSCRP, ESR #### [place] [address] [place] #### WILL CHOICE, RA, LYME AB wRFX, SPE #### [facility] , Urine clarity by refractomet ry automatedOrdered By: Josué Napier on 12-20-2022 Clarity Refractometry automated (U) Clear Clear [facility] Urine glucose measurement by automated test strip (mass/volume)Ordered By: Josué Napier on 12-20-2022 Glucose Auto test strip (U) [Mass/Vol] Normal mg/dL Normal [facility] Urine hemoglobin detection b y automated test stripOrdered By: Josué Napier on 12-20-2022 Hemoglobin Auto test strip Ql (U) Negative Negative [facility] Urine leukocyte esterase det ection by automated test stripOrdered By: Josué Napier on 12-20-2022 Leukocyte esterase Auto test strip Ql (U) Negative Negative [facility] Urobilinogen Auto test strip (U) [Mass/Vol]Ordered By: Josué Napier on 12-20-2022 Urobilinogen (U) [Mass/Vol] Normal mg/dL Normal [facility] XR chest 2V*on 12-20-2022 XR chest 2V* [facility] [place] [address] XRay Report Signed Patient: Lupe Pickard MR#: [id number] : 1975 Acct:[id number] Age/Sex: 47 / F ADM Date: 12/20/22 Loc: ER Room: Type: PRE ER Attending Dr: Copies to: Josué Napier PA-C Ordering Provider: Josué Napier PA-C Date of Service: 12/20/22 XR/XR chest 2V*: Arrhythmia/Palpitati ons Plain film chest 2 view HISTORY: Chest [...] Rao Gresham M.D.12/20/2022 1:24 PM Dictation Location: [place] [address] Transcribed By: [facility] 12/20/22 1324 Dictated By: Rao Gresham DO 12/20/22 132 Signed By: 12/20/22 1324 [facility] pH Auto test strip (U)Ordere d By: Josué Napier on 12-20-2022 pH (U) 6.5 [pH] 5.0-9.0 [facility] Consultation Noteon 12-14-19 Consultation Note [id number] #1.00CD:127 Normal [facility] Office Visit (Cardiology)on 12-08-2022 Follow-up visit Diagnoses/Problems [...] Metabolic Panel; Status:Active - Retrospective Authorization; Requested for:[id number]; TSH - Thyroid Stimulating Hormone, Serum; Status:Active - Retrospective Authorization; Requested for:06Qmw1339; Vitamin D 25-Hydroxy; Status:Need Information - ABN Disposition,Retrospe ctive Authorization; Requested for:[id number]; Morbid obesity with BMI of 40.0-44.9, adult Healthy Weight Tips; Status:Complete - Retrospective Authorization; Done: [id number] Some eating tips that can help you lose weight.; Status:Complete - Retrospective Authorization; Done: [id number] Palpitations Renew: Metoprolol Succinate ER 50 MG Oral Tablet Extended Release 24 Hour; TAKE 1 TABLET BY MOUTH EVERY DAY PVC (premature ventricular contraction) IO EKG Electrocardiogram- 12 Lead; Status:Complete; Done: 27Drp7672 SocHx: Former smoker Tobacco Use Screening; Status:Complete; Done: 21Iqx4752 Patient Instructions Please bring all medicines, vitamins, [...] have nerve ablations in back with the [place] [facility]. The provider reviewed the following [...] TWICE A DAY Vitamin D3 1.25 MG (45267 UT) Oral CapsuleTAKE 1 CAPSULE Daily Allergies Medication No Known Drug Allergies Recorded By: Suzie Turner; 10/21/2017 2:10:00 PM Social History Problems Daily caf (more content not included)... Normal [place] Tobacco Screening.on 023 Tobacco use status CPHS b) No [employer] 250 DO Work Phone: Echocardiogramon 11-25-2022 Echocardiography [facility] [address] [place] [address], [address] [place] [address] TRANSTHORACIC ECHOCARDIOGRAM REPORT Patient Name: LUPE Horne Physician: [id number] Azam Mortensen MD Study Date: 11/25/2022 Referring Physician: PHILLIP BENJAMIN MRN/PID: [id number] PCP: Donya Billings MD Accession/Order#: [id number] Department Location: [facility] Date of : 1975 Fellow: Gender: F Nurse: Admit Date: Supervisor Train Operations: Shila Tripp RDCS, T Height: 170.18 cm CC Report to: Weight: 121.56 kg Study Type: Echocardiogram BSA: 2.29 m2 Blood Pressure: 120 /82 mmHg Diagnosis/ICD: I47.1-Supraventricul ar tachycardia; I49.3-Ventricular premature depolarization; R00.2-Palpitations Indication: Chest Pain, Former Smoker, Morbid Obesity, Hypothyroid, Anxiety, Shortness of Breath, Marijuana Use Procedure/CPT: Echo Complete w Full Doppler-82340 Study Detail: The following Echo studies were [...] 0.8 m/s (0.6-0.9m/s) PV Max P.8 mmHg [id number] Azam Mortensen MD Electronically signed on 11/25/2022 at 5:29:01 PM Final Normal [facility] Screenson 11-15-2022 Screens [id number]# 1.00CD:127 Normal [facility] Physician Referralon 023 Physician Referral [id number]#1.00CD:127 Normal [facility] Family Medicine Office/Clini c Noteon 11-12-2022 Family [...] of clutter to prevent tripping and/or falling. [place] Advance Directives reviewed, pt will complete forms [...] appetite, constipatio (more content not included)... Normal [facility] Comment on above: Result Comment: Elec tronically Signed By: Donya BILLINGS DO.br\Date and Time Signed: 11/12/22 18:07 EDT\.br\Electronically Co-Signed By: Chico Patel LPN\.br\Date and Time Co-Signed: 11/12/22 11:54 EDT\.br\Electronically Co-Signed By: Donya BILLINGS DO\.br\Date and Time Co-Signed: 11/12/22 18:08 EDT Patient Educationon 11-13-19 Patient Education Preventive Care 40?64 Years Old, Female Preventive care refers to [...] of hard liquor (44 mL). Lifestyle ? [place] your teeth every morning and night with [...] protective equipm (more content not included)... Normal [facility] Family Medicine Office/Nataliia Nogueira 11-11-2022 Family Medicine Office/Clinic Note Chief Complaint [...] the month. She was recently evaluated at [facility] for this concern in addition to elevated [...] lot of symptoms that would correlate with manager terminal mold exposure. History of Present Illness I [...] day (at bedtime), 70 gm, Refill(s) 0, [facility]pharmacy #[id number], 170, cm, 11/27/20 12:07:00 EDT, Height/Length Dosing, 135.4, kg, 11/11/20 11:28:00 EDT, Weight Dosing nystatin topical, 1 estephania, Topical, BID, 30 gram, Refill(s) 0, [facility], 170, cm, 08/10/22 15:03:00 EDT, [...] stop, # 45 cap(s), Refills(s) 0, Pharmacy: [facility], 170, cm, 08/10/22 15:03:... triamcinolone topical, 1 estephania, Topical, TID, 30 gram, Refill(s) 0, [facility], 170, cm, 10/14/20 10:46:00 EDT, Height/Length Dosing, 137.5, kg, 10/14/20 10:46:00 EDT, Weight Dosing MA Mamm Screen w/CAD if perf and 3D Prakash Follow-up With When Contact Information Donya BILLINGS DO, JOSELUIS In 3 months [address] [place] [phone]- Additional Instructions: Problem List/Past Medical History Ongoing [...] using fluoroscop (more content not included)... Normal [facility] Comment on above: Result Comment: Elec tronically Signed By: Donya BILLINGS DO\.br\Date and Time Signed: 11/11/22 13:39 EDT Ambulatory Visit Summaryon 0 11-10-2022 Ambulatory Visit Summary LUPE PICKARD :1975 Visit Date:11/10/2022 Ambulatory Visit Instructions Your [...] Follow-Up Appointments Tuesday 9:15 AM EDT With: MARGOT PELAYO, Donya Weller Where: [facility] Invalid Interpretation Code [address] [place] [address]-\.br\ You Need to Complete the Following\.br\ MA Mamm Screen w/CAD if perf and 3D Prakash, 11/10/22, Routine, Order for Future Visit, Transport Mode: Ambulatory, Reason: Screening, No, Screening mammogram, encounter for, pp_set_radiology_ subspecialty, Required & Missing, [facility]\.br\ Someone Will Contact You Regarding These Appointments\.br\ [facility] [place] Ambulatory Referral, Rheumatology, 11/12/22 9:41:00 EDT, Nicole rash [facility] ED Note-Physicianon 11-09-19 ED Note-Physician [id number] #1.00CD:127 Normal [facility] Troponin I High Sensitivityo n 11-06-2022 Troponin I High Sensitivity < 2.3 Normal 0.0-15.0 [facility] Comment on above: Result Comment: PERF ORMED BY: [place] [address] PATHOLOGIST COMMUNICATION SPECIALIST WENDY CLARK M.D. Performed By: #### H S TROP ####[facility] [id number] [place] [id number] [facility] Troponin I.cardiac [Mass/vol ume] in Serum or Plasma by Detection limit <= 0.01 ng/Ordered By: Yogi Mcgraw on 11-06-2022 Troponin I.cardiac DL <= 0.01 ng/mL [Mass/Vol] < 2.3 pg/mL 0.0-15.0 [facility] XR chest 1V portableon 11-06 XR chest 1V portable [facility] Main [place] [id number] XRay Report Signed Patient: Lupe Pickard MR#: [id number] : 1975 Acct:[id number] Age/Sex: 47 / F ADM Date: 11/05/22 Loc: ER Room: Type: [facility] ER Attending Dr: Copies to: Yogi Mcgraw [...] Ernie Roper M.D.11/06/2022 1:10 PM Dictation Location: [place] [address] Transcribed By: [facility] 11/06/22 1310 Dictated By: Ernie Roper II, MD 11/06/22 1309 Signed By: 11/06/22 1310 Normal [facility] Activated partial thrombopla stin time (aPTT) in platelet poor plasma by coagulation aOrdered By: Yogi Mcgraw on 11-05-2022 aPTT Coag (PPP) [Time] 31.7 s 25.1-36.5 [facility] B-Type Natriuretic Peptideon 11-05-2022 Natriuretic peptide B (Bld) [Mass/Vol] 16.0 pg/mL Normal 5-100 [facility] Comment on above: Result Comment: PERF ORMED BY: [facility] [address] [facility] [place] [id number] PATHOLOGIST COMMUNICATION SPECIALIST WENDY CLARK M.D. Performed By: #### B MP, PT, BNP, PTT, CBC, HS TROP ####[place] [address] [place] [address] [facility] Basic Metabolic Panelon 06-0 Anion gap [Moles/Vol] 11.1 mmol/L Normal 6.0-15.0 [facility] Comment on above: Performed By: #### B MP, PT, BNP, PTT, CBC, HS TROP ####[place] [address] [place] [address] [facility] Calcium [Mass/Vol] 8.6 mg/dL Normal 8.6-10.3 [facility] Comment on above: Performed By: #### B MP, PT, BNP, PTT, CBC, HS TROP ####[place] [address] [place] [address] [facility] Chloride [Moles/Vol] 105 mmol/L Normal 98-107 [facility] Comment on above: Performed By: #### B MP, PT, BNP, PTT, CBC, HS TROP ####[place] [address] CO2 [Moles/Vol] 26.4 mmol/L Normal 21.0-31.0 [facility] Comment on above: Performed By: #### B MP, PT, BNP, PTT, CBC, HS TROP ####[place] [address] [place] [id number] [facility] Creatinine [Mass/Vol] 0.58 mg/dL Low 0.60-1.20 [facility] Comment on above: Performed By: #### B MP, PT, BNP, PTT, CBC, HS TROP ####[place] [address] Creatinine Clr Calc Pharmacy 166.57 [facility] Comment on above: Result Comment: PERF ORMED BY: [facility] [address] [place] [address] PATHOLOGIST COMMUNICATION SPECIALIST WENDY CLARK M.D. Performed By: #### B MP, PT, BNP, PTT, CBC, HS TROP ####[place] [address] GFR/1.73 sq M.predicted MDRD (S/P/Bld) [Vol rate/Area] mL/min/{1.73_m2} [facility] Comment on above: Performed By: #### B MP, PT, BNP, PTT, CBC, HS TROP ####[address] Glucose [Mass/Vol] 74 mg/dL Normal 70-100 [facility] Comment on above: Result Comment: [place] Glucose Reference Range is dependent on time and content of last meal. Glucose of more than 200 mg/dL in a nonstressed, ambulatory subject supports the diagnosis of Diabetes Mellitus. ADA recommended reference range Performed By: #### B MP, PT, BNP, PTT, CBC, HS TROP ####[place] [id number] [facility] Potassium [Moles/Vol] 3.5 mmol/L Normal 3.5-5.1 [facility] Comment on above: Performed By: #### B MP, PT, BNP, PTT, CBC, HS TROP ####[place] [address] Sodium [Moles/Vol] 139 mmol/L Normal 136-145 [facility] Comment on above: Performed By: #### B MP, PT, BNP, PTT, CBC, HS TROP ####[place] [address] Urea nitrogen [Mass/Vol] 10 mg/dL Normal 7-25 [facility] Comment on above: Performed By: #### B MP, PT, BNP, PTT, CBC, HS TROP ####[place] [address] Basophils Auto (Bld) [#/Vol] Ordered By: Yogi Mcgraw on 11-05-2022 Basophils (Bld) [#/Vol] 0.1 10*3/uL 0.0-0.2 [facility] Basophils/100 WBC Auto (Bld) Ordered By: Yogi Mcgraw on 11-05-2022 Basophils/100 WBC (Bld) 0.8 % . [facility] Calcium [Mass/volume] in Ser um or PlasmaOrdered By: Yogi Mcgraw on 11-05-2022 Calcium [Mass/Vol] 8.6 mg/dL 8.6-10.3 [facility] Carbon dioxide, total [Moles /volume] in Serum or PlasmaOrdered By: Yogi Mcgraw on 11-05-2022 CO2 [Moles/Vol] 26.4 mmol/L 21.0-31.0 [facility] Chloride [Moles/volume] in S zakia or PlasmaOrdered By: Yogi Mcgraw on 11-05-2022 Chloride [Moles/Vol] 105 mmol/L 98-107 [facility] Complete Blood Count Auto Di ffon 11-05-2022 Basophils (Bld) [#/Vol] 0.1 10*3/uL Normal 0.0-0.2 [facility] Comment on above: Result Comment: PERF ORMED BY: [facility] [address] [place] [address] PATHOLOGIST COMMUNICATION SPECIALIST WENDY CLARK M.D. Performed By: #### B MP, PT, BNP, PTT, CBC, HS TROP ####[address] Basophils/100 WBC (Bld) 0.8 % Normal . [facility] Comment on above: Performed By: #### B MP, PT, BNP, PTT, CBC, HS TROP ####[address] Eosinophils (Bld) [#/Vol] 0.1 10*3/uL Normal 0.0-0.45 [facility] Comment on above: Performed By: #### B MP, PT, BNP, PTT, CBC, HS TROP ####[address] Eosinophils/100 WBC (Bld) 0.9 % Normal . [facility] Comment on above: Performed By: #### B MP, PT, BNP, PTT, CBC, HS TROP ####[address] Erythrocyte distribution width (RBC) [Ratio] 14.2 % Normal 11.9-15.3 [facility] Comment on above: Performed By: #### B MP, PT, BNP, PTT, CBC, HS TROP ####[address] Hematocrit (Bld) [Volume fraction] 39.8 % Normal 34.0-46.4 [facility] Comment on above: Performed By: #### B MP, PT, BNP, PTT, CBC, HS TROP ####[address] Hemoglobin (Bld) [Mass/Vol] 13.8 g/dL Normal 11.8-15.4 [facility] Comment on above: Performed By: #### B MP, PT, BNP, PTT, CBC, HS TROP ####[address] [address] [place] Lymphocytes (Bld) [#/Vol] 2.4 10*3/uL Normal 1.00-4.8 [facility] Comment on above: Performed By: #### B MP, PT, BNP, PTT, CBC, HS TROP ####[address] Lymphocytes/100 WBC (Bld) 20.0 % Normal . [facility] Comment on above: Performed By: #### B MP, PT, BNP, PTT, CBC, HS TROP ####[address] MCH (RBC) [Entitic mass] 30.3 pg Normal 24.7-34.3 [facility] Comment on above: Performed By: #### B MP, PT, BNP, PTT, CBC, HS TROP ####[address] MCV (RBC) [Entitic vol] 87.5 fL Normal 80-100 [facility] Comment on above: Performed By: #### B MP, PT, BNP, PTT, CBC, HS TROP ####[address] Mean Corpuscular HGB Conc 34.7 g/dL Normal 32.0-35.0 [facility] Comment on above: Performed By: #### B MP, PT, BNP, PTT, CBC, HS TROP ####[address] Monocytes (Bld) [#/Vol] 0.7 10*3/uL Normal 0.0-0.8 [facility] Comment on above: Performed By: #### B MP, PT, BNP, PTT, CBC, HS TROP ####[address] Monocytes/100 WBC (Bld) 17.86 % Normal 0.00-20.00 [facility] Comment on above: Performed By: #### B MP, PT, BNP, PTT, CBC, HS TROP ####[place] [address] Monocytes/100 WBC (Bld) 5.8 % Normal . [facility] Comment on above: Performed By: #### B MP, PT, BNP, PTT, CBC, HS TROP ####[address] Neutrophils (Bld) [#/Vol] 8.6 10*3/uL High 1.8-7.7 [facility] Comment on above: Performed By: #### B MP, PT, BNP, PTT, CBC, HS TROP ####[address] Neutrophils/100 WBC (Bld) 72.5 % Normal . [facility] Comment on above: Performed By: #### B MP, PT, BNP, PTT, CBC, HS TROP ####[address] NRBC% 0.1 /100{WBC} Normal 0-0.5 [facility] Comment on above: Performed By: #### B MP, PT, BNP, PTT, CBC, HS TROP ####[address] Platelet mean volume (Bld) [Entitic vol] 8.1 fL Normal 6.3-10.7 [facility] Comment on above: Performed By: #### B MP, PT, BNP, PTT, CBC, HS TROP ####[address] Platelets (Bld) [#/Vol] 336 10*3/uL Normal 150-450 [facility] Comment on above: Performed By: #### B MP, PT, BNP, PTT, CBC, HS TROP ####[address] RBC (Bld) [#/Vol] 4.55 10*6/uL Normal 3.60-5.00 [facility] Comment on above: Performed By: #### B MP, PT, BNP, PTT, CBC, HS TROP ####[address] [place] [address] [facility] WBC (Bld) [#/Vol] 11.9 10*3/uL High 3.8-11.6 [facility] Comment on above: Performed By: #### B MP, PT, BNP, PTT, CBC, HS TROP ####[facility] [id number] [place] [id number] [facility] Creatinine [Mass/volume] in Serum or PlasmaOrdered By: Yogi Mcgraw on 11-05-2022 Creatinine [Mass/Vol] 0.58 mg/dL 0.60-1.20 [facility] ECG 12 lead ECGon 11-05-2022 ECG 12 lead ECG [facility] Main [place] [address] [place] [address] Electrocardiograph Report Signed Patient: Lupe Pickard MR#: [id number] : 1975 Acct:[id number] Age/Sex: 47 / F ADM Date: 11/05/22 Loc: ER Room: Type: [facility] ER Attending Dr: Ordering Provider: Yogi Mcgraw [...] normal variant Confirmed by Yogi Mcgraw DO ([id number]) on 11/06/2022 6:35:53 AM Referred By: Electronically Signed By:Yogi Mcgraw DO Transcribed By: MUS Signed By Yogi Mcgraw DO 35 Normal [facility] Eosinophils Auto (Bld) [#/Vo l]Ordered By: Yogi Mcgraw on 11-05-2022 Eosinophils (Bld) [#/Vol] 0.1 10*3/uL 0.0-0.45 [facility] Eosinophils/100 WBC Auto (Bl d)Ordered By: Yogi Mcgraw on 11-05-2022 Eosinophils/100 WBC (Bld) 0.9 % . [facility] Erythrocyte distribution wid th Auto (RBC) [Ratio]Ordered By: Yogi Mcgraw on 11-05-2022 Erythrocyte distribution width (RBC) [Ratio] 14.2 % 11.9-15.3 [facility] Glucose [Mass/volume] in Ser um or PlasmaOrdered By: Yogi Mcgraw on 11-05-2022 Glucose [Mass/Vol] 74 mg/dL 70-100 [facility] Comment on above: ADA recommended refe rence rangeRandom Glucose Reference Range is dependent on time and content of last meal. Glucose of more than 200 mg/dL in a nonstressed, ambulatory subject supports the diagnosis of Diabetes Mellitus. Hematocrit Auto (Bld) [Volum e fraction]Ordered By: Yogi Mcgraw on 11-05-2022 Hematocrit (Bld) [Volume fraction] 39.8 % 34.0-46.4 [facility] Hemoglobin [Mass/volume] in BloodOrdered By: Yogi Mcgraw on 11-05-2022 Hemoglobin (Bld) [Mass/Vol] 13.8 g/dL 11.8-15.4 [facility] Laboratory - CoagulationOrde red By: Yogi Mcgraw on 11-05-2022 PT Coag (PPP) [Time] 12.6 s 9.0-12.9 [facility] Leukocytes [#/volume] correc emily for nucleated erythrocytes in Blood by Automated counOrdered By: Yogi Mcgraw on 11-05-2022 WBC corrected for nucl RBC Auto (Bld) [#/Vol] 11.9 10*3/uL 3.8-11.6 [facility] Lymphocytes Auto (Bld) [#/Vo l]Ordered By: Yogi Mcgraw on 11-05-2022 Lymphocytes (Bld) [#/Vol] 2.4 10*3/uL 1.00-4.8 [facility] Lymphocytes/100 WBC Auto (Bl d)Ordered By: Yogi Mcgraw on 11-05-2022 Lymphocytes/100 WBC (Bld) 20.0 % . [facility] MCH Auto (RBC) [Entitic mass ]Ordered By: Yogi Mcgraw on 11-05-2022 MCH (RBC) [Entitic mass] 30.3 pg 24.7-34.3 [facility] MCHC Auto (RBC) [Mass/Vol]Or dered By: Yogi Mcgraw on 11-05-2022 MCHC (RBC) [Mass/Vol] 34.7 g/dL 32.0-35.0 [facility] MCV Auto (RBC) [Entitic vol] Ordered By: Yogi Mcgraw on 11-05-2022 MCV (RBC) [Entitic vol] 87.5 fL 80-100 [facility] Magnesiumon 11-05-2022 Magnesium [Mass/Vol] 1.5 mg/dL Low 1.9-2.7 [facility] Comment on above: Result Comment: PERF ORMED BY: [place] [address] PATHOLOGIST COMMUNICATION SPECIALIST WENDY CLARK M.D. Performed By: #### F OL, B12, HSCRP, ESR #### [facility] [address] [place] [address] #### WILL CHOICE, RA, LYME AB wRFX, SPE #### [facility] , Magnesium [Mass/volume] in S zakia or PlasmaOrdered By: Yogi Mcgraw on 11-05-2022 Magnesium [Mass/Vol] 1.5 mg/dL 1.9-2.7 [facility] Monocyte distribution width [Entitic volume] in Blood by AutomatedOrdered By: Yogi Mcgraw on 11-05-2022 Monocyte distribution width Auto (Bld) [Entitic vol] 17.86 % 0.00-20.00 [facility] Monocytes Auto (Bld) [#/Vol] Ordered By: Yogi Mcgraw on 11-05-2022 Monocytes (Bld) [#/Vol] 0.7 10*3/uL 0.0-0.8 [facility] Monocytes/100 WBC Auto (Bld) Ordered By: Yogi Mcgraw on 11-05-2022 Monocytes/100 WBC (Bld) 5.8 % . [facility] Natriuretic peptide B [Mass/ Vol]Ordered By: Yogi Mcgraw on 11-05-2022 Natriuretic peptide B (Bld) [Mass/Vol] 16.0 pg/mL 5-100 [facility] Neutrophils Auto (Bld) [#/Vo l]Ordered By: Yogi Mcgraw on 11-05-2022 Neutrophils (Bld) [#/Vol] 8.6 10*3/uL 1.8-7.7 [facility] Neutrophils/100 WBC Auto (Bl d)Ordered By: Yogi Mcgraw on 11-05-2022 Neutrophils/100 WBC (Bld) 72.5 % . [facility] No Panel InformationOrdered By: Yogi Mcgraw on 11-05-2022 Estimated GFR (CKD-EPI) > 60.0 mL/Min [facility] Creatinine Clearance (Chem 166.57 [facility] Nucleated erythrocytes [Pres ence] in Blood by Automated countOrdered By: Yogi Mcgraw on 11-05-2022 Nucleated RBC Auto Ql (Bld) 0.1 /100{WBC} 0-0.5 [facility] Partial Thromboplastin Timeo n 11-05-2022 aPTT Coag (Bld) [Time] 31.7 s Normal 25.1-36.5 [facility] Comment on above: Result Comment: PERF ORMED BY: [place] [address] PATHOLOGIST COMMUNICATION SPECIALIST WENDY CLARK M.D. Performed By: #### B MP, PT, BNP, PTT, CBC, HS TROP ####[facility] [id number] Phosphate [Mass/volume] in S zakia or PlasmaOrdered By: Yogi Mcgraw on 11-05-2022 Phosphate [Mass/Vol] 3.9 mg/dL 3.7-7.2 [facility] Phosphoruson 11-05-2022 Phosphate [Mass/Vol] 3.9 mg/dL Normal 3.7-7.2 [facility] Comment on above: Performed By: #### F OL, B12, HSCRP, ESR #### [facility] [address] [place] [address] [place] #### WILL CHOICE, RA, LYME AB wRFX, SPE #### [facility] , Platelet mean volume Auto (B ld) [Entitic vol]Ordered By: Yogi Mcgraw on 11-05-2022 Platelet mean volume (Bld) [Entitic vol] 8.1 fL 6.3-10.7 [facility] Platelet poor plasma interna tional normalized ratio (INR) by coagulation assay (relatOrdered By: Yogi Mcgraw on 11-05-2022 INR Coag (PPP) [Relative time] 1.1 {INR} [facility] Comment on above: INR Therapeutic Rang [...] 11-05-2022 Platelets (Bld) [#/Vol] 336 10*3/uL 150-450 [facility] Potassium [Moles/volume] in Serum or PlasmaOrdered By: Yogi Mcgraw on 11-05-2022 Potassium [Moles/Vol] 3.5 mmol/L 3.5-5.1 [facility] Prothrombin Time INRon 11-05 INR Coag (PPP) [Relative time] 1.1 {INR} Normal [facility] Comment on above: Result Comment: INR [...] MP, PT, BNP, PTT, CBC, HS TROP ####[facility] [address] [place] [id number] [facility] PT Coag (PPP) [Time] 12.6 s Normal 9.0-12.9 [facility] Comment on above: Performed By: #### B MP, PT, BNP, PTT, CBC, HS TROP ####[facility] [place] [address] [facility] RBC Auto (Bld) [#/Vol]Ordere d By: Yogi Mcgraw on 11-05-2022 RBC (Bld) [#/Vol] 4.55 10*6/uL 3.60-5.00 [facility] Serum or plasma anion gap de terminationOrdered By: Yogi Mcgraw on 11-05-2022 Anion gap [Moles/Vol] 11.1 mmol/L 6.0-15.0 [facility] Sodium [Moles/volume] in Ser um or PlasmaOrdered By: Yogi Mcgraw on 11-05-2022 Sodium [Moles/Vol] 139 mmol/L 136-145 [facility] Troponin I High Sensitivityo n 11-05-2022 Troponin I High Sensitivity 2.9 pg/mL Normal 0.0-15.0 [facility] Comment on above: Result Comment: PERF ORMED BY: [facility] [address] [place] [place] [address] PATHOLOGIST COMMUNICATION SPECIALIST WENDY CLARK M.D. Performed By: #### B MP, PT, BNP, PTT, CBC, HS TROP ####[facility] [place] [address] [facility] Urea nitrogen [Mass/volume] in Serum or PlasmaOrdered By: Yogi Mcgraw on 11-05-2022 Urea nitrogen [Mass/Vol] 10 mg/dL 7-25 [facility] WBC Auto (Bld) [#/Vol]Ordere d By: Yogi Mcgraw on 11-05-2022 WBC (Bld) [#/Vol] 11.9 10*3/uL 3.8-11.6 [facility] Cardiac Stress Teston 2022 Cardiac Stress Test [address], [address], [place] [address] Exercise Stress Test Patient Name: LUPE PICKARD Ordering Physician: [id number] Phillip Benjamin MD Study Date: 10/28/2022 Reading Physician: [id number] Ric Valverde MD, [facility] MRN/PID: [id number] Supervising Physician: [id number] Ric Valverde MD, [facility] Accession/Order#: [id number] Referring Physician: PHILLIP BENJMAIN Date of : 1975 PCP: Donya Billings MD Gender: F Fellow: Height: 170.18 cm Nurse: Randall Hinton RN Weight: 121.56 kg Supervisor Train Operations: REFUGIO BSA: 2.29 m2 Technologist: BMI: 41.98 Additional Staff: kg/m2 Age: 47 years cc report to: Patient Location: cc report to: [id number] Phillip Benjamin MD Study Type: Cardiac Stress Test Diagnosis/ICD: I47.1-Supraventricul ar tachycardia; R00.2-Palpitations; I49.3-Ventricular premature depolarization Indication: ATACH Procedure/CPT: Stress Test Interpretation-[id number] ; Stress Test Supervision-[id number] Falls Risk: Low: Patient has low risk [...] normal sinus rhythm. Stress Stage Data: + +- --+------+-------+ HR Sys BP Gray BP + +- --+------+-------+ Baseline Resting 77 118 82 + +- --+------+-------+ Baseline Standing 77 120 78 + +- --+------+-------+ Stage I 126 128 86 + +- --+------+-------+ Stage II 137 146 82 + +- --+------+-------+ Stage III 162 158 80 + +- --+------+-------+ Recovery ECG: The heart rate recovery was normal. + +---+-- ----+-------+ HR Sys BP Gray BP + +---+-- ----+-------+ Recovery I 162 158 80 + +---+-- ----+-------+ Recovery II 122 156 86 + +---+-- ----+-------+ Recovery III 98 134 88 + +---+-- ----+-------+ Recovery IV 87 118 82 + +---+-- ----+-------+ Summary: 1. 1_normal exercise stress test after [...] favorable. 2. Adequate level of stress achieved. [id number] Ric Valverde MD, [facility] Electronically signed on 10/29/2022 at 1:49:55 PM Final Normal [facility] Cardiac Stress Test MP-No rth [facility] [address] [place] Work Phone: Office Visit (Cardiology)on [...] breath Cardiac Stress Test; Status:Hold For - Scheduling,Retrospec tive Authorization; Requested for:[id number]; Atrial tachycardia, Palpitations, PVC (premature ventricular contraction) Echocardiogram; Status:Hold For - Scheduling,Retrospec tive Authorization; Requested for:[id number]; Morbid obesity with BMI of 40.0-44.9, adult Healthy Weight Tips; Status:Complete - Retrospective Authorization; Done: 13Oct2022 Some eating tips that can help you lose weight.; Status:Complete - Retrospective Authorization; Done: [id number] SocHx: Former smoker Tobacco Use Screening; Status:Complete; Done: [id number] Patient Instructions Please bring all medicines, vitamins, [...] DAILY. Melato (more content not included)... Normal [place] Tobacco Screening.on 023 Tobacco use status [facility] b) No [facility] [place] Work Phone: Consent for Procedure/Surger yon 10-04-2022 Consent for Procedure/Surgery [id number] 2#1.00CD:127 Normal [facility] Consent for Treatmenton Consent for Treatment [id number] #1.00CD:127 Normal [facility] Inpatient Patient Summaryon 10-04-2022 Inpatient Patient Summary [address] [address] Clinical Summary Person Information Name: LUPE PICKARD Age: 47 Years : 1975 Sex: Female PCP: Donya BILLINGS DO Marital Status: Single Phone: [phone] Race: White Ethnicity: Non- or Language: Mongolian Visit Id: Visit Reason: URINARY INCONTINENCE Speciality: Acuity: Enc Type: Outpatient Med Service: Surgery Arrival: 10/04/2022 12:36:01 Discharge: Dispo Type: Address: [address] [facility] [id number] Provider Notes: Diagnosis: Problems Active Yeast dermatitis [...] MD Follow up: With: Address: When: Donya Parker [facility], [address], [place] [id number] [facility] (1) Comments: Please follow up in four months. Have a great day! Type Location Start Finish State Medicare Wellness Subsequent [facility] 11/10/2022 1:00 PM 11/10/2022 2:00 PM Confirmed FM Open [facility] 11/11/2022 1:00 PM 11/11/2022 1:20 PM Confirmed URO Office [facility] [place] 02/01/2023 9:15 AM 02/01/2023 9:30 AM Confirmed Patient Education Information: EU - Cystoscopy with Botox Injection Discharge Instructions (Custom) Normal [facility] IntraOperative Documentson 0 10-04-2022 IntraOperative Documents [id number] 9#1.00CD:127 Normal [facility] Main OR Intraoperative Recor don 10-04-2022 Main OR Intraoperative Record IntraOp Document Type FTURO Summary Primary Physician: Donya OZUNA MD Finalized Date/Time: 10/04/22 13:37:34 Pt. Name: LUPE PICKARD /Sex: 1975 Female Med Rec #: [id number] Physician: Donya OZUNA MD Financial #: [id number] Pt. Type: O Room/Bed: / Admit/Disch: 10/04/22 12:36:01 - Institution: Case Times FTURO Entry 1 Patient Times In Room 10/04/22 13:20:00 Out Room 10/04/22 13:34:00 Procedure Times Start 10/04/22 13:23:00 Stop 10/04/22 13:29:00 Anesthesia Times Last Modified By: Vanna CHRISTIE, ROSARIOOR, Humera 10/04/22 13:30:37 Case Attendance FTURO Entry 1 Entry 2 Entry 3 Case Attendee Donya OZUNA MD RN, CNOR, Mitch FELIX, Charlee Grubbs Role Performed Surgeon - Primary Assistant Professor Of Chemistry - Primary Scrub - Primary Time In 10/04/22 13:20:00 10/04/22 13:20:00 10/04/22 13:20:00 Time Out 10/04/22 13:34:00 10/04/22 13:34:00 10/04/22 13:34:00 Procedure CYSTOSCOPY LOCAL BOTOX CYSTOSCOPY LOCAL BOTOX CYSTOSCOPY LOCAL BOTOX INJECTION(.) INJECTION(.) INJECTION(.) Comments Last Modified By: Vanna CHRISTIE, CNOR, Vanna RN, ROSARIOOR, Vanna CHRISTIE, ROSARIOOR, Humera 10/04/22 Humera 10/04/22 Humera 10/04/22 13:30:39 13:30:39 13:30:39 General Comments: dr alfaro res in room for procedure Surgical Procedures FTURO Entry 1 Procedure Description Procedure CYSTOSCOPY LOCAL BOTOX Modifiers . INJECTION Surgeon Description 100 UNITS BOTOX injection Primary Procedure Yes Primary Surgeon Donya OZUNA MD 10/04/22 13:23:00 Stop 10/04/22 13:29:00 Anesthesia Type Local Surgical Service Urology Wound Class 2 - Clean-Contaminated Last Modified By: Vanna CHRISTIE, ROSARIOOR, Humera 10/04/22 13:31:33 General Comments: botox 100 outdate 02/21 lot [id number] General Case Data FTURO Pre-Care Text: Classifies [...] Out Donya OZUNA MD, Verified (If Participants ROSARIO Prabhakar RNOR, Applicable) Mitch Grubbs BUSINESS CONTINUITY DIRECTOR, Charlee Kennedy Time Out Complete 10/04/22 13:23:00 [...] WALT Prabhakar RN, Ruthann 10/04/22 13:37 Normal [facility] Main OR Preoperative Recordo n 10-04-2022 Main OR Preoperative Record Holding Area Document Type FTURO Summary Primary Physician: Donya OZUNA MD Finalized Date/Time: 10/04/22 13:25:25 Pt. Name: LUPE PICKARD Brandon Hodges/Sex: 1975 Female Med Rec #: [id number] Physician: Donya OZUNA MD Financial #: [id number] Pt. Type: O Room/Bed: / Admit/Disch: 10/04/22 [...] WALT Prabhakar RN, Ruthann 10/04/22 13:25 Normal [facility] Operative Reporton Operative Report Patient: LUPE PICKARD Age: 47 years Sex: Female : 1975 Associated Diagnoses: None Author: Donya OZUNA MD Procedure Operative Information Details: Date/ Time: 10/04/2022 13:36:00. 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 Post-Op Dx: Same. Anesthesia Type: Local. Procedure: Local Cystoscopy with botox injection. Complications: None. Risks/Benefits/Infor med Consent: Surgical risks, benefits, details of the [...] Follow up arranged, F/U four months. Normal [facility] Comment on above: Result Comment: Elec tronically Signed By: Donya OZUNA MD\.br\Date and Time Signed: 10/04/22 13:37 EDT Outpatient Surgery Discharge Instructionon 10-04-2022 Outpatient Surgery Discharge Instruction [id number] 3#1.00CD:127 Normal [facility] Outpatient Surgery Discharge Instruction [address] [address] Patient Discharge Instructions PERSON INFORMATION Name: LUPE [...] Follow up: With: Address: When: Donya OZUNA [address] [place] [address], [address], [address] [address] [facility] (1) Comments: Please follow up in four months. Have a great day! Type Location Start Finish State Medicare Wellness Subsequent [facility] 11/10/2022 1:00 PM 11/10/2022 2:00 PM Confirmed FM Open [facility] 11/11/2022 1:00 PM 11/11/2022 1:20 PM Confirmed URO [facility] [place] 02/01/2023 9:15 AM 02/01/2023 9:30 [...] you have a fever over 100 degrees. MELLY Estrella LISA M, have received the attached patient education materials/instructio ns and have verbalized understanding: May we do a follow up call? Yes No I was present when discharge instructions were given Patient Signature Date Clinican/Nurse Signature Date You may receive a survey from [employer] asking you to rate your care experience. Your feedback is important and will help us understand what we do well and how we can improve the quality of care we provide to you, your loved ones and our community. It?s an honor to serve you. Thank you for choosing [facility] Normal [facility] ED Note-Physicianon 09-22-19 23 ED Note-Physician [id number] #1.00CD:127 Normal [facility] B-Type Natriuretic Peptideon 09-20-2022 Natriuretic peptide B (Bld) [Mass/Vol] 22.0 pg/mL Normal 5-100 [facility] Comment on above: Result Comment: PERF ORMED BY: [place] [address] PATHOLOGIST COMMUNICATION SPECIALIST WENDY CLARK M.D. Performed By: #### F OL, B12, HSCRP, ESR #### [address] #### WILL CHOICE, RA, LYME AB wRFX, SPE #### [facility] , Basic Metabolic Panelon 08-29 Anion gap [Moles/Vol] 10.1 mmol/L Normal 6.0-15.0 [facility] Comment on above: Performed By: #### F OL, B12, HSCRP, ESR #### [facility] [address] [place] [address] #### WILL CHOICE, RA, LYME AB wRFX, SPE #### [facility] , Calcium [Mass/Vol] 8.6 mg/dL Normal 8.6-10.3 [facility] Comment on above: Performed By: #### F OL, B12, HSCRP, ESR #### [address] #### WILL CHOICE, RA, LYME AB wRFX, SPE #### [facility] , Chloride [Moles/Vol] 106 mmol/L Normal 98-107 [facility] Comment on above: Performed By: #### F OL, B12, HSCRP, ESR #### [facility] [address] [place] [address] [place] #### WILL CHOICE, RA, LYME AB wRFX, SPE #### [facility] , CO2 [Moles/Vol] 27.8 mmol/L Normal 21.0-31.0 [facility] Comment on above: Performed By: #### F OL, B12, HSCRP, ESR #### [facility] [address] [place] [address] [place] #### WILL CHOICE, RA, LYME AB wRFX, SPE #### [facility] , Creatinine [Mass/Vol] 0.67 mg/dL Normal 0.60-1.20 [facility] Comment on above: Performed By: #### F OL, B12, HSCRP, ESR #### [facility] [address] [place] [address] [place] #### WILL CHOICE, RA, LYME AB wRFX, SPE #### [facility] , Creatinine Clr Calc Pharmacy 144.30 Normal [facility] Comment on above: Performed By: #### F OL, B12, HSCRP, ESR #### [address] #### WILL CHOICE, RA, LYME AB wRFX, SPE #### [facility] , GFR/1.73 sq M.predicted MDRD (S/P/Bld) [Vol rate/Area] mL/min/{1.73_m2} [facility] Comment on above: Performed By: #### F OL, B12, HSCRP, ESR #### [place] [address] [place] #### WILL CHOICE, RA, LYME AB wRFX, SPE #### [facility] , Glucose [Mass/Vol] 98 mg/dL Normal 70-100 [facility] Comment on above: Result Comment: [facility] Glucose Reference Range is dependent on time and content of last meal. Glucose of more than 200 mg/dL in a nonstressed, ambulatory subject supports the diagnosis of Diabetes Mellitus. ADA recommended reference range Performed By: #### F OL, B12, HSCRP, ESR #### [place] [address] [place] #### WILL CHOICE, RA, LYME AB wRFX, SPE #### [facility] , Potassium [Moles/Vol] 3.9 mmol/L Normal 3.5-5.1 [facility] Comment on above: Performed By: #### F OL, B12, HSCRP, ESR #### [facility] [address] [place] [address] [place] #### WILL CHOICE, RA, LYME AB wRFX, SPE #### [facility] , Sodium [Moles/Vol] 140 mmol/L Normal 136-145 [facility] Comment on above: Performed By: #### F OL, B12, HSCRP, ESR #### [address] #### WILL CHOICE, RA, LYME AB wRFX, SPE #### [facility] , Urea nitrogen [Mass/Vol] 9 mg/dL Normal 7-25 [facility] Comment on above: Performed By: #### F OL, B12, HSCRP, ESR #### [address] #### WILL CHOICE, RA, LYME AB wRFX, SPE #### [facility] , Complete Blood Count Auto Di ffon 09-20-2022 Basophils (Bld) [#/Vol] 0.0 10*3/uL Normal 0.0-0.2 [facility] Comment on above: Result Comment: PERF ORMED BY: [place] [address] PATHOLOGIST COMMUNICATION SPECIALIST WENDY CLARK M.D. Performed By: #### F OL, B12, HSCRP, ESR #### [address] #### WILL CHOICE, RA, LYME AB wRFX, SPE #### [facility] , Basophils/100 WBC (Bld) 0.4 % Normal . [facility] Comment on above: Performed By: #### F OL, B12, HSCRP, ESR #### [place] [address] [place] #### WILL CHOICE, RA, LYME AB wRFX, SPE #### [facility] , Eosinophils (Bld) [#/Vol] 0.1 10*3/uL Normal 0.0-0.45 [facility] Comment on above: Performed By: #### F OL, B12, HSCRP, ESR #### [address] #### WILL CHOICE, RA, LYME AB wRFX, SPE #### [facility] , Eosinophils/100 WBC (Bld) 0.6 % Normal . [facility] Comment on above: Performed By: #### F OL, B12, HSCRP, ESR #### [place] [address] [place] #### WILL CHOICE, RA, LYME AB wRFX, SPE #### [facility] , Erythrocyte distribution width (RBC) [Ratio] 14.4 % Normal 11.9-15.3 [facility] Comment on above: Performed By: #### F OL, B12, HSCRP, ESR #### [place] [address] [place] #### WILL CHOICE, RA, LYME AB wRFX, SPE #### [facility] , Hematocrit (Bld) [Volume fraction] 40.2 % Normal 34.0-46.4 [facility] Comment on above: Performed By: #### F OL, B12, HSCRP, ESR #### [facility] [address] [place] [address] [place] #### WILL CHOICE, RA, LYME AB wRFX, SPE #### [facility] , Hemoglobin (Bld) [Mass/Vol] 13.5 g/dL Normal 11.8-15.4 [facility] Comment on above: Performed By: #### F OL, B12, HSCRP, ESR #### [place] [address] [place] #### WILL CHOICE, RA, LYME AB wRFX, SPE #### [facility] , Lymphocytes (Bld) [#/Vol] 2.3 10*3/uL Normal 1.00-4.8 [facility] Comment on above: Performed By: #### F OL, B12, HSCRP, ESR #### [address] #### WILL CHOICE, RA, LYME AB wRFX, SPE #### [facility] , Lymphocytes/100 WBC (Bld) 21.2 % Normal . [facility] Comment on above: Performed By: #### F OL, B12, HSCRP, ESR #### [address] #### WILL CHOICE, RA, LYME AB wRFX, SPE #### [facility] , MCH (RBC) [Entitic mass] 29.3 pg Normal 24.7-34.3 [facility] Comment on above: Performed By: #### F OL, B12, HSCRP, ESR #### [place] [address] [place] #### WILL CHOICE, RA, LYME AB wRFX, SPE #### [facility] , MCV (RBC) [Entitic vol] 87.6 fL Normal 80-100 [facility] Comment on above: Performed By: #### F OL, B12, HSCRP, ESR #### [address] #### WILL CHOICE, RA, LYME AB wRFX, SPE #### [facility] , Mean Corpuscular HGB Conc 33.5 g/dL Normal 32.0-35.0 [facility] Comment on above: Performed By: #### F OL, B12, HSCRP, ESR #### [facility] [address] [place] [address] [place] #### WILL CHOICE, RA, LYME AB wRFX, SPE #### [facility] , Monocytes (Bld) [#/Vol] 0.5 10*3/uL Normal 0.0-0.8 [facility] Comment on above: Performed By: #### F OL, B12, HSCRP, ESR #### [place] [address] [place] #### WILL CHOICE, RA, LYME AB wRFX, SPE #### [facility] , Monocytes/100 WBC (Bld) 17.47 % Normal 0.00-20.00 [facility] Comment on above: Performed By: #### F OL, B12, HSCRP, ESR #### [place] [address] [place] #### WILL CHOICE, RA, LYME AB wRFX, SPE #### [facility] , Monocytes/100 WBC (Bld) 4.5 % Normal . [facility] Comment on above: Performed By: #### F OL, B12, HSCRP, ESR #### [address] #### WILL CHOICE, RA, LYME AB wRFX, SPE #### [facility] , Neutrophils (Bld) [#/Vol] 8.1 10*3/uL High 1.8-7.7 [facility] Comment on above: Performed By: #### F OL, B12, HSCRP, ESR #### [place] [address] [place] #### WILL CHOICE, RA, LYME AB wRFX, SPE #### [facility] , Neutrophils/100 WBC (Bld) 73.3 % Normal . [facility] Comment on above: Performed By: #### F OL, B12, HSCRP, ESR #### [place] [address] [place] #### WILL CHOICE, RA, LYME AB wRFX, SPE #### [facility] , NRBC% 0.0 /100{WBC} Normal 0-0.5 [facility] Comment on above: Performed By: #### F OL, B12, HSCRP, ESR #### [place] [address] [place] #### WILL CHOICE, RA, LYME AB wRFX, SPE #### [facility] , Platelet mean volume (Bld) [Entitic vol] 8.1 fL Normal 6.3-10.7 [facility] Comment on above: Performed By: #### F OL, B12, HSCRP, ESR #### [facility] [address] [place] [address] [place] #### WILL CHOICE, RA, LYME AB wRFX, SPE #### [facility] , Platelets (Bld) [#/Vol] 329 10*3/uL Normal 150-450 [facility] Comment on above: Performed By: #### F OL, B12, HSCRP, ESR #### [facility] [address] [place] [address] #### WILL CHOICE, RA, LYME AB wRFX, SPE #### [facility] , RBC (Bld) [#/Vol] 4.59 10*6/uL Normal 3.60-5.00 [facility] Comment on above: Performed By: #### F OL, B12, HSCRP, ESR #### [facility] [address] [place] [address] [place] #### WILL CHOICE, RA, LYME AB wRFX, SPE #### [facility] , WBC (Bld) [#/Vol] 11.1 10*3/uL Normal 3.8-11.6 [facility] Comment on above: Performed By: #### F OL, B12, HSCRP, ESR #### [facility] [address] [place] [address] [place] #### IWLL CHOICE, RA, LYME AB wRFX, SPE #### [facility] , D-Dimer High Sensitivityon 0 4-24-2022 D-Dimer High Sensitivity < 200 Normal 0-243 [facility] Comment on above: Result Comment: The [...] patients due to co-morbid conditions. PERFORMED BY: [place] [address] PATHOLOGIST COMMUNICATION SPECIALIST WENDY CLARK M.D. Performed By: #### F OL, B12, HSCRP, ESR #### [place] [address] [place] #### WILL CHOICE, RA, LYME AB wRFX, SPE #### [facility] , ECG 12 lead ECGon 09-20-2022 ECG 12 lead ECG [facility] [place] [address] [place] [address] Electrocardiograph Report Signed Patient: Lupe Pickard MR#: [id number] : 1975 Acct:[id number] Age/Sex: 47 / F ADM Date: 09/20/22 Loc: ER Room: Type: [facility] ER Attending Dr: Ordering Provider: Magalys Carlos [...] was found Confirmed by PAULIE PORTER DO ([id number]) on 09/21/2022 1:16:02 AM Referred By: Electronically Signed By:PAULIE PORTER DO Transcribed By: MUS Signed By Paulie Porter DO 09/21 0116 [facility] Free T4 (Free Thyroxine)on 0 09-20-2022 Free T4 [Mass/Vol] 0.91 ng/dL Normal 0.61-1.12 [facility] Comment on above: Performed By: #### F OL, B12, HSCRP, ESR #### [facility] [address] [place] [address] [place] #### WILL CHOICE, RA, LYME AB wRFX, SPE #### [facility] , Magnesiumon 09-20-2022 Magnesium [Mass/Vol] 2.0 mg/dL Normal 1.9-2.7 [facility] Comment on above: Performed By: #### F OL, B12, HSCRP, ESR #### [facility] [address] [place] [address] [place] #### WILL CHOICE, RA, LYME AB wRFX, SPE #### [facility] , Partial Thromboplastin Timeo n 09-20-2022 aPTT Coag (Bld) [Time] 29.1 s Normal 25.1-36.5 [facility] Comment on above: Performed By: #### F OL, B12, HSCRP, ESR #### [facility] [address] [place] [address] [place] #### WILL CHOICE, RA, LYME AB wRFX, SPE #### [facility] , Prothrombin Time INRon 09-20 INR Coag (PPP) [Relative time] 1.0 {INR} Normal [facility] Comment on above: Result Comment: INR [...] valves: 3 - 4.5 Performed By: #### F OL, B12, HSCRP, ESR #### [facility] [address] [place] [address] [place] #### WILL CHOICE, RA, LYME AB wRFX, SPE #### [facility] , PT Coag (PPP) [Time] 12.2 s Normal 9.0-12.9 [facility] Comment on above: Performed By: #### F OL, B12, HSCRP, ESR #### [address] #### WILL CHOICE, RA, LYME AB wRFX, SPE #### [facility] , Thyroid Stimulating Hormoneo n 09-20-2022 TSH Qn 0.26 m[IU]/L Low 0.45-5.33 [facility] Comment on above: Result Comment: PERF ORMED BY: [place] [address] PATHOLOGIST COMMUNICATION SPECIALIST WENDY CLARK M.D. Performed By: #### F OL, B12, HSCRP, ESR #### [address] #### WILL CHOICE, RA, LYME AB wRFX, SPE #### [facility] , Troponin I High Sensitivityo n 09-20-2022 Troponin I High Sensitivity 2.6 pg/mL Normal 0.0-15.0 [facility] Comment on above: Result Comment: PERF ORMED BY: [place] [address] PATHOLOGIST COMMUNICATION SPECIALIST WENDY CLARK M.D. Performed By: #### F OL, B12, HSCRP, ESR #### [address] #### WILL CHOICE, RA, LYME AB wRFX, SPE #### [facility] , XR chest 2V*on 09-20-2022 XR chest 2V* [facility] [place] [address] [place] [address] XRay Report Signed Patient: Lupe Pickard MR#: [id number] : 1975 Acct:[id number] Age/Sex: 47 / F ADM Date: 09/20/22 Loc: ER Room: Type: [facility] ER Attending Dr: Copies to: Magalys Carlos APRN Ordering Provider: Magalys Carlos APRN Date of Service: 09/20/22 XR/XR chest 2V*: Recheck/Abnormal Lab/Rx Plain film chest2 view HISTORY:Elevated blood pressure. COMPARISON:11/19/2019 FINDINGS: SUPPORT DEVICES: None POSTSURGICAL CHANGES:None HEART: Within normal limits PULMONARY HEAVENLY:Within normal limits MEDIASTINUM:Unremark able LUNGS AND PLEURA: No acute lung process, pleural effusion or pneumothorax identified. BONY STRUCTURES: Thoracic spondylosis ADDITIONAL FINDINGS None XR/XR chest 2V* IMPRESSION: No acute process. Impression dictated by: Rao Gresham M.D.09/20/2022 6:23 PM Dictation Location: [place] [address] Transcribed By: [facility] 09/20/221822 Dictated By: Rao Gresham DO 09/20/221822 Signed By: 09/20/221822 [facility] CT thoracic spine wo conon 0 09-17-2022 CT thoracic spine wo con [facility] [place] [address] CT Scan Report Signed Patient: Lupe Pickard MR#: [id number] : 1975 Acct:[id number] Age/Sex: 47 / F ADM Date: 09/17/22 Loc: ICCT Room: Type: [facility] CLI Attending Dr: Javad Leach Copies to: Javad [...] MD 09/17/22 1406 Signed By: 09/17/22 1415 [facility] Progress Noteson 09-02-2022 Allergy And Immunology Chief Authentication Interface Message Text CONSULTED BY: CC: [...] she can follow up PRN. Normal [facility] Chief Authentication Interface Message Text Patient was identified by name and date of . Susan Lomeli RN Patient at risk for falls:No Falls Risk protocol implemented: No Normal [facility] [employer] [facility] Lab Report[facility] 08-11-2022 Lab Reports [id number]# 1.00CD:127 Normal [facility] A1C with Estimated Average G [facility] 08-10-2022 Glucose [Mass/Vol] 117 mg/dL Normal [facility] Comment on above: Result Comment: PERF ORMED BY: [facility] [address] [place] [address] PATHOLOGIST COMMUNICATION SPECIALIST WENDY CLARK M.D. Performed By: #### A 1C [facility] eA, LIPID, URMA, CBC ####[facility] [address] [place] [address] [facility] HbA1c (Bld) [Mass fraction] 5.7 % High 4.3-5.6 [facility] Comment on above: Result Comment: Incr eased risk for diabetes: 5.7 - 6.4 diabetes: >6.4 glycemic control for adults with diabetes: <7.0 Performed By: #### A 1C [facility] eA, LIPID, URMA, CBC ####[facility] [address] [place] [id number] [facility] Alanine aminotransferase [En zymatic activity/volume] in Serum or PlasmaOrdered By: Kenyetta Dove on 08-10-2022 ALT [Catalytic activity/Vol] 14 U/L 7-52 [facility] Albumin [Mass/volume] in Ser um or Plasma by Bromocresol green (BCG) dye binding methoOrdered By: Kenyetta Dove on 08-10-2022 Albumin BCG dye [Mass/Vol] 4.0 g/dL 3.5-5.7 [facility] Alkaline phosphatase [Enzyma tic activity/volume] in Serum or PlasmaOrdered By: Kenyetta Dove on 08-10-2022 ALP [Catalytic activity/Vol] 43 U/L 34-104 [facility] Ambulatory Visit Summaryon 0 08-10-2022 Ambulatory Visit Summary LUPE PICKARD Brandon :1975 Visit Date:08/10/2022 Ambulatory Visit Instructions Your [...] Follow-Up Appointments Tuesday 7:45 AM EDT Where: [facility] Tuesday 1:30 PM EDT Where: [facility] Tuesday 1:00 PM EDT Where: [facility] Ione Normal [facility] Aspartate aminotransferase [ Enzymatic activity/volume] in Serum or PlasmaOrdered By: Kenyetta Dove on 08-10-2022 AST [Catalytic activity/Vol] 10 U/L 13-39 [facility] Basophils Auto (Bld) [#/Vol] Ordered By: Kenyetta Dove on 08-10-2022 Basophils (Bld) [#/Vol] 0.0 10*3/uL 0.0-0.2 [facility] Basophils/100 WBC Auto (Bld) Ordered By: Kenyetta Dove on 08-10-2022 Basophils/100 WBC (Bld) 0.5 % . [facility] Bilirubin.total [Mass/volume ] in Serum or PlasmaOrdered By: Kenyetta Dove on 08-10-2022 Bilirubin [Mass/Vol] 0.6 mg/dL 0.3-1.0 [facility] Calcium [Mass/volume] in Ser um or PlasmaOrdered By: Kenyetta Dove on 08-10-2022 Calcium [Mass/Vol] 9.0 mg/dL 8.6-10.3 [facility] Carbon dioxide, total [Moles /volume] in Serum or PlasmaOrdered By: Kenyetta Dove on 08-10-2022 CO2 [Moles/Vol] 29.0 mmol/L 21.0-31.0 [facility] Chloride [Moles/volume] in S zakia or PlasmaOrdered By: Kenyetta Dove on 08-10-2022 Chloride [Moles/Vol] 104 mmol/L 98-107 [facility] Cholesterol [Mass/volume] in Serum or PlasmaOrdered By: Kenyetta Dove on 08-10-2022 Cholesterol [Mass/Vol] 145 mg/dL 140-200 [facility] Comment on above: Chol less than 200 m g/dl low riskChol 201-239 mg/dl borderline riskChol 240 mg/dl and greater high risk Cholesterol in LDL Calc [Mas s/Vol]Ordered By: Kenyetta Dove on 08-10-2022 Cholesterol in LDL [Mass/Vol] 64 mg/dL 0-100 [facility] Comment on above: LDL ATP III CLASSIFI CATIONLDL less than 100 mg/dL OptimalLDL 100-129 mg/dL Near or above optimalLDL 130-159 mg/dL Borderline highLDL 160-189 mg/dL HighLDL greater than 189 mg/dL Very high Cholesterol in VLDL Calc [Ma ss/Vol]Ordered By: Kenyetta Dove on 08-10-2022 Cholesterol in VLDL [Mass/Vol] 27 mg/dL [facility] Complete Blood Count Auto Di ffon 08-10-2022 Basophils (Bld) [#/Vol] 0.0 10*3/uL Normal 0.0-0.2 [facility] Comment on above: Result Comment: PERF ORMED BY: [facility] [address] [place] [address] PATHOLOGIST COMMUNICATION SPECIALIST WENDY CLARK M.D. Performed By: #### A 1C W[facility] eA, LIPID, URMA, CBC ####[address] Basophils/100 WBC (Bld) 0.5 % Normal . [facility] Comment on above: Performed By: #### A 1C WTH eA, LIPID, URMA, CBC ####[address] Eosinophils (Bld) [#/Vol] 0.1 10*3/uL Normal 0.0-0.45 [facility] Comment on above: Performed By: #### A 1C WTH eA, LIPID, URMA, CBC ####[address] Eosinophils/100 WBC (Bld) 1.3 % Normal . [facility] Comment on above: Performed By: #### A 1C WT eA, LIPID, URMA, CBC ####[address] Erythrocyte distribution width (RBC) [Ratio] 14.6 % Normal 11.9-15.3 [facility] Comment on above: Performed By: #### A 1C WTH eA, LIPID, URMA, CBC ####[address] Hematocrit (Bld) [Volume fraction] 37.0 % Normal 34.0-46.4 [facility] Comment on above: Performed By: #### A 1C WTH eA, LIPID, URMA, CBC ####[address] Hemoglobin (Bld) [Mass/Vol] 12.5 g/dL Normal 11.8-15.4 [facility] Comment on above: Performed By: #### A 1C WTH eA, LIPID, URMA, CBC ####[address] [place] [address] [place] Lymphocytes (Bld) [#/Vol] 2.3 10*3/uL Normal 1.00-4.8 [facility] Comment on above: Performed By: #### A 1C WTH eA, LIPID, URMA, CBC ####[address] Lymphocytes/100 WBC (Bld) 28.1 % Normal . [facility] Comment on above: Performed By: #### A 1C WT eA, LIPID, URMA, CBC ####[address] MCH (RBC) [Entitic mass] 29.7 pg Normal 24.7-34.3 [facility] Comment on above: Performed By: #### A 1C WT eA, LIPID, URMA, CBC ####[address] MCV (RBC) [Entitic vol] 88.0 fL Normal 80-100 [facility] Comment on above: Performed By: #### A 1C WT eA, LIPID, URMA, CBC ####[address] Mean Corpuscular HGB Conc 33.7 g/dL Normal 32.0-35.0 [facility] Comment on above: Performed By: #### A 1C WT eA, LIPID, URMA, CBC ####[address] Monocytes (Bld) [#/Vol] 0.3 10*3/uL Normal 0.0-0.8 [facility] Comment on above: Performed By: #### A 1C WT eA, LIPID, URMA, CBC ####[address] Monocytes/100 WBC (Bld) 3.9 % Normal . [facility] Comment on above: Performed By: #### A 1C WTH eA, LIPID, URMA, CBC ####[address] Neutrophils (Bld) [#/Vol] 5.5 10*3/uL Normal 1.8-7.7 [facility] Comment on above: Performed By: #### A 1C [facility] eA, LIPID, URMA, CBC ####[address] Neutrophils/100 WBC (Bld) 66.2 % Normal . [facility] Comment on above: Performed By: #### A 1C [facility] eA, LIPID, URMA, CBC ####[address] NRBC% 0.1 /100{WBC} Normal 0-0.5 [facility] Comment on above: Performed By: #### A 1C [facility] eA, LIPID, URMA, CBC ####[address] Platelet mean volume (Bld) [Entitic vol] 8.2 fL Normal 6.3-10.7 [facility] Comment on above: Performed By: #### A 1C [facility] eA, LIPID, URMA, CBC ####[address] Platelets (Bld) [#/Vol] 313 10*3/uL Normal 150-450 [facility] Comment on above: Performed By: #### A 1C [facility] eA, LIPID, URMA, CBC ####[address] RBC (Bld) [#/Vol] 4.20 10*6/uL Normal 3.60-5.00 [facility] Comment on above: Performed By: #### A 1C [facility] eA, LIPID, URMA, CBC ####[address] WBC (Bld) [#/Vol] 8.3 10*3/uL Normal 3.8-11.6 [facility] Comment on above: Performed By: #### A 1C WT eA, LIPID, URMA, CBC ####[address] [place] [address] [place] Comprehensive Metabolic Pane soniya 08-10-2022 Albumin [Mass/Vol] 4.0 g/dL Normal 3.5-5.7 [facility] Comment on above: Order Comment: PT IS FASTING Performed By: #### F OL, B12, HSCRP, ESR #### [facility] [address] [place] [address] #### WILL CHOICE, RA, LYME AB wRFX, SPE #### [facility] , Albumin/Globulin [Mass ratio] 1.7 {ratio} Normal [facility] Comment on above: Order Comment: PT IS FASTING Performed By: #### F OL, B12, HSCRP, ESR #### [facility] [address] [place] [address] #### WILL CHOICE, RA, LYME AB wRFX, SPE #### [facility] , ALP [Catalytic activity/Vol] 43 U/L Normal 34-104 [facility] Comment on above: Order Comment: PT IS FASTING Performed By: #### F OL, B12, HSCRP, ESR #### [facility] [address] [place] [address] #### WILL CHOICE, RA, LYME AB wRFX, SPE #### [facility] , ALT [Catalytic activity/Vol] 14 U/L Normal 7-52 [facility] Comment on above: Order Comment: PT IS FASTING Performed By: #### F OL, B12, HSCRP, ESR #### [address] #### WILL CHOICE, RA, LYME AB wRFX, SPE #### [facility] , Anion gap [Moles/Vol] 10.1 mmol/L Normal 6.0-15.0 [facility] Comment on above: Order Comment: PT IS FASTING Performed By: #### F OL, B12, HSCRP, ESR #### [place] [address] [place] #### WILL CHOICE, RA, LYME AB wRFX, SPE #### [facility] , AST [Catalytic activity/Vol] 10 U/L Low 13-39 [facility] Comment on above: Order Comment: PT IS FASTING Performed By: #### F OL, B12, HSCRP, ESR #### [facility] [address] [place] [address] #### WILL CHOICE, RA, LYME AB wRFX, SPE #### [facility] , Bilirubin [Mass/Vol] 0.6 mg/dL Normal 0.3-1.0 [facility] Comment on above: Order Comment: PT IS FASTING Performed By: #### F OL, B12, HSCRP, ESR #### [address] #### WILL CHOICE, RA, LYME AB wRFX, SPE #### [facility] , Calcium [Mass/Vol] 9.0 mg/dL Normal 8.6-10.3 [facility] Comment on above: Order Comment: PT IS FASTING Performed By: #### F OL, B12, HSCRP, ESR #### [facility] [address] [place] [address] [place] #### WILL CHOICE, RA, LYME AB wRFX, SPE #### [facility] , Chloride [Moles/Vol] 104 mmol/L Normal 98-107 [facility] Comment on above: Order Comment: PT IS FASTING Performed By: #### F OL, B12, HSCRP, ESR #### [facility] [address] [place] [address] [place] #### WILL CHOICE, RA, LYME AB wRFX, SPE #### [facility] , CO2 [Moles/Vol] 29.0 mmol/L Normal 21.0-31.0 [facility] Comment on above: Order Comment: PT IS FASTING Performed By: #### F OL, B12, HSCRP, ESR #### [place] [address] [place] #### WILL CHOICE, RA, LYME AB wRFX, SPE #### [facility] , Creatinine [Mass/Vol] 0.52 mg/dL Low 0.60-1.20 [facility] Comment on above: Order Comment: PT IS FASTING Performed By: #### F OL, B12, HSCRP, ESR #### [facility] [address] [place] [address] [place] #### WILL CHOICE, RA, LYME AB wRFX, SPE #### [facility] , GFR/1.73 sq M.predicted MDRD (S/P/Bld) [Vol rate/Area] mL/min/{1.73_m2} Normal [facility] Comment on above: Order Comment: PT IS FASTING Performed By: #### F OL, B12, HSCRP, ESR #### [address] #### WILL CHOICE, RA, LYME AB wRFX, SPE #### [facility] , Globulin (S) [Mass/Vol] 2.3 g/dL Normal [facility] Comment on above: Order Comment: PT IS FASTING Performed By: #### F OL, B12, HSCRP, ESR #### [facility] [address] [place] [address] [place] #### WILL CHOICE, RA, LYME AB wRFX, SPE #### [facility] , Glucose [Mass/Vol] 98 mg/dL Normal 74-109 [facility] Comment on above: Order Comment: PT IS FASTING Result Comment: [place] Glucose Reference Range is dependent on time and content of last meal. Glucose of more than 200 mg/dL in a nonstressed, ambulatory subject supports the diagnosis of Diabetes Mellitus. ADA recommended reference range Performed By: #### F OL, B12, HSCRP, ESR #### [facility] [address] [place] [address] [place] #### WILL CHOICE, RA, LYME AB wRFX, SPE #### [facility] , Potassium [Moles/Vol] 4.1 mmol/L Normal 3.5-5.1 [facility] Comment on above: Order Comment: PT IS FASTING Performed By: #### F OL, B12, HSCRP, ESR #### [facility] [address] [place] [address] [place] #### WILL CHOICE, RA, LYME AB wRFX, SPE #### [facility] , Protein [Mass/Vol] 6.3 g/dL Low 6.4-8.9 [facility] Comment on above: Order Comment: PT IS FASTING Performed By: #### F OL, B12, HSCRP, ESR #### [facility] [address] [place] [address] #### WILL CHOICE, RA, LYME AB wRFX, SPE #### [facility] , Sodium [Moles/Vol] 139 mmol/L Normal 136-145 [facility] Comment on above: Order Comment: PT IS FASTING Performed By: #### F OL, B12, HSCRP, ESR #### [facility] [address] [place] [address] [place] #### WILL CHOICE, RA, LYME AB wRFX, SPE #### [facility] , Urea nitrogen [Mass/Vol] 8 mg/dL Normal 7-25 [facility] Comment on above: Order Comment: PT IS FASTING Performed By: #### F OL, B12, HSCRP, ESR #### [facility] [address] [place] [address] #### WILL CHOICE, RA, LYME AB wRFX, SPE #### [facility] , Creatinine [Mass/volume] in Serum or PlasmaOrdered By: Kenyetta Dove on 08-10-2022 Creatinine [Mass/Vol] 0.52 mg/dL 0.60-1.20 [facility] Eosinophils Auto (Bld) [#/Vo l]Ordered By: Kenyetta Dove on 08-10-2022 Eosinophils (Bld) [#/Vol] 0.1 10*3/uL 0.0-0.45 [facility] Eosinophils/100 WBC Auto (Bl d)Ordered By: Kenyetta Dove on 08-10-2022 Eosinophils/100 WBC (Bld) 1.3 % . [facility] Erythrocyte distribution wid th Auto (RBC) [Ratio]Ordered By: Kenyetta Dove on 08-10-2022 Erythrocyte distribution width (RBC) [Ratio] 14.6 % 11.9-15.3 [facility] Estrogens, Totalon 3 Estrogens, Total 310 pg/mL Normal . [facility] Comment on above: Result Comment: Prep ubertal < 40 Female Cycle: 1-10 Days 16 - 328 11-20 Days 34 - 501 21-30 Days 48 - 350 Post-Menopausal 40 - 244 Performed at: - [facility] [id number] [employer] Operator Adjuster: Roger Kenny MD, Phone: [phone] Performed By: #### F OL, B12, HSCRP, ESR #### [facility] [address] #### WILL CHOICE, RA, LYME AB wRFX, SPE #### [facility] , Family Medicine Office/Clini c Noteon 08-10-2022 Family [...] completed a 30 day event monitor (at [facility]) and had a follow up with cardiology [...] time. Notes she is scheduled with her uniform room attendant next week to rule out her thyroid contributing to the palpitations/cardiac symptoms. C/O yeast infections under her breasts and in the skin folds of her abdomen. Also states that she has been following with pain management at [facility] for her Tramadol, however, there is a [...] day(s), # 10 tab(s), Refills(s) 0, Pharmacy: [facility], 170, cm, 08/10/22 15:03:00 EDT, Height/Length Dosing, 125.1, kg, 08/10/22 15:03:00 EDT, Weight Dosing metoprolol, 12.5 mg = 0.5 tab(s), Oral, BID, # 30 tab(s), Refills(s) 2, Pharmacy: [facility], 170, cm, 08/10/22 15:03:00 EDT, Height/Length Dosing, 125.1, kg, 08/10/22 15:03:00 EDT, Weight Dosing nystatin topical, 1 estephania, Topical, BID, 30 gram, Refill(s) 0, [facility], 170, cm, 08/10/22 15:03:00 EDT, [...] retention Vitam (more content not included)... Normal [facility] Comment on above: Result Comment: Elec tronically Signed By: Donya BILLINGS DO\.br\Date and Time Signed: 08/10/22 15:54 EDT Follicle Stimulating Hormone on 08-10-2022 Follicle Stimulating Hormone 5.9 m[iU]/mL Normal [facility] Comment on above: Result Comment: FEMA LE NORMALS (PREMENOPAUSE) MID-FOLLICULAR PHASE: 3.9-8.8 mIU/mL MID-CYCLE PEAK: 4.5-22.5 mIU/mL MID-LUTEAL PHASE: 1.8-5.1 mIU/mL FEMALE NORMALS (POSTMENOPAUSE): 16.7-113.6 mIU/mL MALE NORMALS: 1.3-19.3 mIU/mL Performed By: #### F OL, B12, HSCRP, ESR #### [facility] [address] #### WILL HOLLOWAY, RA, LYME AB wRFX, SPE #### [facility] , Follitropin [Units/volume] i n Serum or PlasmaOrdered By: Kenyetta Dove on 08-10-2022 Follitropin Qn 5.9 m[IU]/mL [facility] Comment on above: FEMALE NORMALS (GERHARD ENOPAUSE) MID-FOLLICULAR PHASE: 3.9-8.8 mIU/mL MID-CYCLE PEAK: 4.5-22.5 mIU/mL MID-LUTEAL PHASE: 1.8-5.1 mIU/mLFEMALE NORMALS (POSTMENOPAUSE): 16.7-113.6 mIU/mLMALE NORMALS: 1.3-19.3 mIU/mL Free T4 (Free Thyroxine)on 0 08-10-2022 Free T4 [Mass/Vol] 0.80 ng/dL Normal 0.61-1.12 [facility] Comment on above: Performed By: #### F OL, B12, HSCRP, ESR #### [facility] [address] [place] [address] [place] #### WILL CHOICE, RA, LYME AB wRFX, SPE #### [facility] , Globulin Calc (S) [Mass/Vol] Ordered By: Kenyetta Dove on 08-10-2022 Globulin (S) [Mass/Vol] 2.3 g/dL [facility] Glucose [Mass/volume] in Ser um or PlasmaOrdered By: Kenyetta Dove on 08-10-2022 Glucose [Mass/Vol] 98 mg/dL 74-109 [facility] Comment on above: ADA recommended refe rence rangeRandom Glucose Reference Range is dependent on time and content of last meal. Glucose of more than 200 mg/dL in a nonstressed, ambulatory subject supports the diagnosis of Diabetes Mellitus. Glucose mean value [Mass/vol ume] in Blood Estimated from glycated hemoglobinOrdered By: Kenyetta Dove on 08-10-2022 Average glucose Estimated from glycated hemoglobin (Bld) [Mass/Vol] 117 mg/dL [facility] Hematocrit Auto (Bld) [Volum e fraction]Ordered By: Kenyetta Dove on 08-10-2022 Hematocrit (Bld) [Volume fraction] 37.0 % 34.0-46.4 [facility] Hemoglobin A1c percentageOrd ered By: Kenyetta Dove on 08-10-2022 HbA1c (Bld) [Mass fraction] 5.7 % 4.3-5.6 [facility] Comment on above: Increased risk for d iabetes: 5.7 - 6.4diabetes: >6.4glycemic control for adults with diabetes: <7.0 Hemoglobin [Mass/volume] in BloodOrdered By: Kenyetta Dove on 08-10-2022 Hemoglobin (Bld) [Mass/Vol] 12.5 g/dL 11.8-15.4 [facility] Laboratory - Chemistry and C hemistry - challengeOrdered By: Kenyetta Dove on 08-10-2022 GFR/1.73 sq M.predicted MDRD (S/P/Bld) [Vol rate/Area] mL/min/{1.73_m2} [facility] Leukocytes [#/volume] correc emily for nucleated erythrocytes in Blood by Automated counOrdered By: Kenyetta Dove on 08-10-2022 WBC corrected for nucl RBC Auto (Bld) [#/Vol] 8.3 10*3/uL 3.8-11.6 [facility] Lipid Panelon 08-10-2022 Cholesterol [Mass/Vol] 145 mg/dL Normal 140-200 [facility] Comment on above: Result Comment: Chol less than 200 mg/dl low risk Chol 201-239 mg/dl borderline risk Chol 240 mg/dl and greater high risk Performed By: #### A 1C WTH eA, LIPID, URMA, CBC ####[facility] [place] [id number] [facility] Cholesterol in HDL [Mass/Vol] 53 mg/dL Normal 35-85 [facility] Comment on above: Result Comment: HDL CHOL ATP-III CLASSIFICATION Cardiovascular Risk HDL > or equal to 60 mg/dL LOW HDL < 40 mg/dL HIGH Performed By: #### A 1C WT eA, LIPID, URMA, CBC ####[place] [id number] Cholesterol.total/Ch olesterol in HDL [Mass ratio] 2.7 {ratio} Normal <5.0 [facility] Comment on above: Result Comment: PERF ORMED BY: [facility] [address] [facility] [place] [address] PATHOLOGIST COMMUNICATION SPECIALIST WENDY CLARK M.D. Performed By: #### A 1C WT eA, LIPID, URMA, CBC ####[place] [address] [place] [id number] [facility] LDL Cholesterol,Calculat ed 64 mg/dL Normal 0-100 [facility] Comment on above: Result Comment: LDL ATP III CLASSIFICATION LDL less than 100 mg/dL Optimal LDL 100-129 mg/dL Near or above optimal LDL 130-159 mg/dL Borderline high LDL 160-189 mg/dL High LDL greater than 189 mg/dL Very high Performed By: #### A 1C WT eA, LIPID, URMA, CBC ####[place] [id number] [facility] Triglyceride w/Reflex 139 mg/dL Normal 0-149 [facility] Comment on above: Result Comment: TRIG ATP III CLASSIFICATION TRIG less than 150 mg/dL Normal TRIG 150-199 mg/dL Borderline high TRIG 200-500 mg/dL High TRIG greater than 500 mg/dL Very high Standard traceable to the Center for Disease Conrtrol and Prevention (CDC) test method. Performed By: #### A 1C WTH eA, LIPID, URMA, CBC ####[facility] [id number] VLDL CHOLESTEROL 27 mg/dL Normal [facility] Comment on above: Performed By: #### A 1C WTH eA, LIPID, URMA, CBC ####[facility] [id number] Luteinizing Hormoneon 2022 Luteinizing Hormone 14.0 m[iU]/mL Normal . [facility] Comment on above: Result Comment: Adul t Female: Follicular phase 2.4 - 12.6 Ovulation phase 14.0 - 95.6 Luteal phase 1.0 - 11.4 Postmenopausal 7.7 - 58.5 Performed By: #### F OL, B12, HSCRP, ESR #### [facility] [address] #### WILL CHOICE, RA, LYME AB wRFX, SPE #### [facility] , Lymphocytes Auto (Bld) [#/Vo l]Ordered By: Kenyetta Dove on 08-10-2022 Lymphocytes (Bld) [#/Vol] 2.3 10*3/uL 1.00-4.8 [facility] Lymphocytes/100 WBC Auto (Bl d)Ordered By: Kenyetta Dove on 08-10-2022 Lymphocytes/100 WBC (Bld) 28.1 % . [facility] MCH Auto (RBC) [Entitic mass ]Ordered By: Kenyetta Dove on 08-10-2022 MCH (RBC) [Entitic mass] 29.7 pg 24.7-34.3 [facility] MCHC Auto (RBC) [Mass/Vol]Or dered By: Kenyetta Dove on 08-10-2022 MCHC (RBC) [Mass/Vol] 33.7 g/dL 32.0-35.0 [facility] MCV Auto (RBC) [Entitic vol] Ordered By: Kenyetta Dove on 08-10-2022 MCV (RBC) [Entitic vol] 88.0 fL 80-100 [facility] Microalbumin [Mass/volume] i n UrineOrdered By: Kenyetta Dove on 08-10-2022 Albumin DL <= 20 mg/L (U) [Mass/Vol] mg/dL 0.0-1.8 [facility] Microalbumin, Urine (Random) on 08-10-2022 Albumin DL <= 20 mg/L (U) [Mass/Vol] mg/dL Normal 0.0-1.8 [facility] Comment on above: Result Comment: PERF ORMED BY: [facility] [address] [place] [address] PATHOLOGIST COMMUNICATION SPECIALIST WENDY CLARK M.D. Performed By: #### A 1C WT eA, LIPID, URMA, CBC ####[facility] [id number] [place] [address] [facility] Monocytes Auto (Bld) [#/Vol] Ordered By: Kenyetta Dove on 08-10-2022 Monocytes (Bld) [#/Vol] 0.3 10*3/uL 0.0-0.8 [facility] Monocytes/100 WBC Auto (Bld) Ordered By: Kenyetta Dove on 08-10-2022 Monocytes/100 WBC (Bld) 3.9 % . [facility] Neutrophils Auto (Bld) [#/Vo l]Ordered By: Kenyetta Dove on 08-10-2022 Neutrophils (Bld) [#/Vol] 5.5 10*3/uL 1.8-7.7 [facility] Neutrophils/100 WBC Auto (Bl d)Ordered By: Kenyetta Dove on 08-10-2022 Neutrophils/100 WBC (Bld) 66.2 % . [facility] No Panel InformationOrdered By: Kenyetta Dove on 08-10-2022 Pharmacy Creatinine Clearance (Chem N/A [facility] Nucleated erythrocytes [Pres ence] in Blood by Automated countOrdered By: Kenyetta Dove on 08-10-2022 Nucleated RBC Auto Ql (Bld) 0.1 /100{WBC} 0-0.5 [facility] Platelet mean volume Auto (B ld) [Entitic vol]Ordered By: Kenyetta Dove on 08-10-2022 Platelet mean volume (Bld) [Entitic vol] 8.2 fL 6.3-10.7 [facility] Platelets Auto (Bld) [#/Vol] Ordered By: Kenyetta Dove on 08-10-2022 Platelets (Bld) [#/Vol] 313 10*3/uL 150-450 [facility] Potassium [Moles/volume] in Serum or PlasmaOrdered By: Kenyetta Dove on 08-10-2022 Potassium [Moles/Vol] 4.1 mmol/L 3.5-5.1 [facility] Progesteroneon 08-10-2022 Progesterone 0.2 ng/mL Normal . [facility] Comment on above: Result Comment: Foll icular phase 0.1 - 0.9 Luteal phase 1.8 - 23.9 Ovulation phase 0.1 - 12.0 First trimester 11.0 - 44.3 Second trimester 25.4 - 83.3 Third trimester 58.7 - 214.0 Postmenopausal 0.0 - 0.1 Performed at: - [facility] [id number] [employer] Operator Adjuster: Ramirez Ca PhD, Phone: [phone] PERFORMED BY: [place] [address] PATHOLOGIST COMMUNICATION SPECIALIST WENDY CLARK M.D. Performed By: #### F OL, B12, HSCRP, ESR #### [place] [address] [place] #### WILL CHOICE, RA, LYME AB wRFX, SPE #### [facility] , Protein [Mass/volume] in Ser um or PlasmaOrdered By: Kenyetta Dove on 08-10-2022 Protein [Mass/Vol] 6.3 g/dL 6.4-8.9 [facility] RBC Auto (Bld) [#/Vol]Ordere d By: Kenyetta Dove on 08-10-2022 RBC (Bld) [#/Vol] 4.20 10*6/uL 3.60-5.00 [facility] Serum or plasma albumin/glob ulin mass ratioOrdered By: Kenyetta Dove on 08-10-2022 Albumin/Globulin [Mass ratio] 1.7 {ratio} [facility] Serum or plasma anion gap de terminationOrdered By: Kenyetta Dove on 08-10-2022 Anion gap [Moles/Vol] 10.1 mmol/L 6.0-15.0 [facility] Serum or plasma high density lipoprotein (HDL) cholesterol measurementOrdered By: Kenyetta Dove on 08-10-2022 Cholesterol in HDL [Mass/Vol] 53 mg/dL 35-85 [facility] Comment on above: HDL CHOL ATP-III CLA SSIFICATION Cardiovascular RiskHDL > or equal to 60 mg/dL LOWHDL < 40 mg/dL HIGH Serum or plasma lutropin lisa surement (units/volume)Ordered By: Kenyetta Dove on 08-10-2022 Lutropin Qn 14.0 m[IU]/mL . [facility] Comment on above: Adult Female: Follic ular phase 2.4 - 12.6 Ovulation phase 14.0 - 95.6 Luteal phase 1.0 - 11.4 Postmenopausal 7.7 - 58.5 Serum or plasma progesterone measurement (mass/volume)Ordered By: Kenyetta Dove on 08-10-2022 Progesterone [Mass/Vol] 0.2 ng/mL . [facility] Comment on above: Follicular phase 0.1 - 0.9 Luteal phase 1.8 - 23.9 Ovulation phase 0.1 - 12.0 First trimester 11.0 - 44.3 Second trimester 25.4 - 83.3 Third trimester 58.7 - 214.0 Postmenopausal 0.0 - 0.1Performed at: - [facility] [address] [id number] Director: Ramirez Ca PhD, Phone: [phone] Serum or plasma total choles terol/high density lipoprotein (HDL) cholesterol mass ratOrdered By: Kenyetta Dove on 08-10-2022 Cholesterol.total/Ch olesterol in HDL [Mass ratio] 2.7 {ratio} <5.0 [facility] Sodium [Moles/volume] in Ser um or PlasmaOrdered By: Kenyetta Dove on 08-10-2022 Sodium [Moles/Vol] 139 mmol/L 136-145 [facility] Thyroid Stimulating Hormoneo n 08-10-2022 TSH Qn 0.31 m[IU]/L Low 0.45-5.33 [facility] Comment on above: Order Comment: PT IS FASTING Result Comment: PERF ORMED BY: [facility] [address] [place] [address] PATHOLOGIST COMMUNICATION SPECIALIST WENDY CLARK M.D. Performed By: #### F OL, B12, HSCRP, ESR #### [facility] [address] [place] [address] [place] #### WILL CHOICE, RA, LYME AB wRFX, SPE #### [facility] , Thyrotropin [Units/volume] i n Serum or PlasmaOrdered By: Kenyetta Dove on 08-10-2022 TSH Qn 0.31 m[IU]/L 0.45-5.33 [facility] Thyroxine (T4) free [Mass/vo lume] in Serum or PlasmaOrdered By: eKnyetta Dove on 08-10-2022 Free T4 [Mass/Vol] 0.80 ng/dL 0.61-1.12 [facility] Total estrogen measurementOr dered By: Kenyetta Dove on 08-10-2022 Estrogen [Mass/Vol] 310 pg/mL . [facility] Comment on above: Prepubertal < 40 Fem giacomo Cycle: 1-10 Days 16 - 328 11-20 Days 34 - 501 21-30 Days 48 - 350 Post-Menopausal 40 - 244Performed at: BN - [facility] [id number] [place], [place] [id number] Director: Roger Kenny MD, Phone: [phone] Triglyceride [Mass/volume] i n Serum or PlasmaOrdered By: Kenyetta Dove on 08-10-2022 Triglyceride [Mass/Vol] 139 mg/dL 0-149 [facility] Comment on above: TRIG ATP III CLASSIF ICATIONTRIG less than 150 mg/dL NormalTRIG 150-199 mg/dL Borderline highTRIG 200-500 mg/dL High TRIG greater than 500 mg/dL Very highStandard traceable to the Center for Disease Conrtrol and Prevention (CDC) test method. Triiodothyronine (T3) Freeon 08-10-2022 Triiodothyronine (T3) Free 3.85 pg/mL Normal 2.50-3.90 [facility] Comment on above: Result Comment: PERF ORMED BY: [place] [id number] PATHOLOGIST COMMUNICATION SPECIALIST WENDY CLARK M.D. Performed By: #### F OL, B12, HSCRP, ESR #### [facility] [address] [place] [address] #### WILL CHOICE, RA, LYME AB wRFX, SPE #### [facility] , Triiodothyronine (T3) Free [ Mass/volume] in Serum or PlasmaOrdered By: Kenyetta Dove on 08-10-2022 Free T3 [Mass/Vol] 3.85 pg/mL 2.50-3.90 [facility] Urea nitrogen [Mass/volume] in Serum or PlasmaOrdered By: Kenyetta Dove on 08-10-2022 Urea nitrogen [Mass/Vol] 8 mg/dL 7-25 [facility] Vitamin D 25 Hydroxy Totalon 08-10-2022 Vitamin D 25 Hydroxy Total 36.0 ng/mL Normal 30-100 [facility] Comment on above: Result Comment: QASIM MIN D STATUS 25(OH)VITAMIN D RANGE (ng/mL) Deficient <20 Insufficient 20 to <30 Sufficient 30 to 100 Reference: Kirby MF,Adonay NC, Shantelle HOLLOWAY, et al. Evaluation,treatment, and prevention of vitamin D deficiency; an Endocrine Society clinical practice guideline. JCEM. 2010; 96(7):1911-30. PERFORMED BY: [address] [address] PATHOLOGIST COMMUNICATION SPECIALIST WENDY CLARK M.D. Performed By: #### F OL, B12, HSCRP, ESR #### [place] [id number] [place] #### WILL CHOICE, RA, LYME AB wRFX, SPE #### [facility] , Vitamin D+Metabolites [Mass/ volume] in Serum or PlasmaOrdered By: Kenyetta Dove on 08-10-2022 Vitamin D+Metabolites [Mass/Vol] 36.0 ng/mL 30-100 [facility] Comment on above: VITAMIN D STATUS 25( [place])VITAMIN D RANGE (ng/mL) Deficient <20 Insufficient 20 to <30Sufficient 30 to 100Reference: Kirby MF,Adonay NC, Shantelle HOLLOWAY, et al. Evaluation,treatment, and prevention of vitamin D deficiency; an Endocrine Society clinical practice guideline. JCEM. 2010; 96(7):1911-30. WBC Auto (Bld) [#/Vol]Ordere d By: Kenyetta Dove on 08-10-2022 WBC (Bld) [#/Vol] 8.3 10*3/uL 3.8-11.6 [facility] Consultation Noteon 08-05-19 Consultation Note [id number] #1.00CD:127 Normal [facility] Consultation Noteon 07-30-19 Consultation Note [id number] #1.00CD:127 Normal [facility] Office Visit (Cardiology)on 07-28-2022 Follow-up visit Diagnoses/Problems [...] visit. 4 months with EKG Retrieve [facility] Chief Complaint LUPE PICKARD is being seen [...] TWICE A DAY Vitamin D3 1.25 MG (67570 UT) Oral CapsuleTAKE 1 CAPSULE Daily Allergies Medication No Known Drug Allergies Recorded By: Suzie Turner; 10/21/2017 2:10:00 PM Social History Problems Daily caffeine consumption Former smoker (V15.82) (Z87.891) quit 01/28/22 Illicit drug use (305.90) (F19.90) marajuiana Social alcohol use (V49.89) (Z78.9) Review of [...] Fall risk assessment c) Not medically indicated [facility] Susana y 250 DO Work Phone: Tobacco use status [facility] b) No [facility] Lyssa-Pastor y 250 DO Work Phone: Tobacco Screening. Yes [facility] Lyssa-Pastor y 250 DO Work Phone: Patient Educationon 07-20-19 Patient Education Urology Botulinum Toxin Bladder Injection [...] including vitamins, herbs, eye drops, creams, and rcfu-bht-itvtvsp medicines. ? Any problems you or family [...] tells you to take them. ? Taking ewsp-shh-wgtyztn medicines, vitamins, herbs, and supplements. General instructions [...] these instructions at home: Medicines ? Take tume-bnl-dtfilgv and prescription medicines only as told by [...] t (more content not included)... Normal [facility] Urology Office/Clinic Noteon 07-20-2022 Urology Office/Clinic Note Chief Complaint Pt is here for 6 month f/u HPI Staff Lupe is a 47 y.o. female here for 6 month follow up. Previous Dx: chronic bilateral low back pain, nocturia, OAB, urge incontinence, urinary retention. S/P BOTOX done on 12/14/21. Pt presented to [facility] on 06/21/22 for left flank pain. [...] order Local anesthesia. Prophylactic abx sent to [facility]. 2. Nocturia (R35.1: Nocturia) Ongoing, 3-4x/night. Pt states previously 1-2x/night. 3. Left flank pain (R10.9: Unspecified abdominal pain) Pt presented to [facility] on 06/21/22 for left flank pain. [...] MD, URL [address] [facility] [address] [place] [address]- Additional Instructions: schedule botox to have done in 2-3 mos Patient Education Botulinum Toxin Bladder Injection I, Shayna Galaviz, personally scribed for Dr. Ozuna on 07/20/2022 [...] of th (more content not included)... Normal [facility] Comment on above: Result Comment: Elec tronically Signed By: Donya OZUNA MD\.br\Date and Time Signed: 07/20/22 13:42 EST\.br\Electronically Co-Signed By: Shayna Galaviz\.br\Date and Time Co-Signed: 07/20/22 13:40 EST No Panel Informationon 07-16 [facility] Heart-Sandusk y 250 DO Work Phone: Basophils Auto (Bld) [#/Vol] Ordered By: Steve Coronel on 06-21-2022 Basophils (Bld) [#/Vol] 0.1 10*3/uL 0.0-0.2 [facility] Basophils/100 WBC Auto (Bld) Ordered By: Steve Coronel on 06-21-2022 Basophils/100 WBC (Bld) 0.6 % . [facility] Bilirubin Test strip Ql (U)O rdered By: Steve Coronel on 06-21-2022 Bilirubin Ql (U) Negative Negative [facility] Body fluid albumin measureme nt (mass/volume)Ordered By: Steve Coronel on 06-21-2022 Albumin (Body fld) [Mass/Vol] 3.7 g/dL 3.2-5.5 [facility] Color Auto (U)Ordered By: Eduardo red Berna on 06-21-2022 Color (U) Yellow Yellow [facility] Creatinine and Glomerular fi ltration rate.predicted panel (S/P/Bld)Ordered By: Steve Coronel on 06-21-2022 Creatinine [Mass/Vol] 0.51 mg/dL 0.44-1.03 [facility] Eosinophils Auto (Bld) [#/Vo l]Ordered By: Steve Coronel on 06-21-2022 Eosinophils (Bld) [#/Vol] 0.1 10*3/uL 0.0-0.45 [facility] Eosinophils/100 WBC Auto (Bl d)Ordered By: Steve Coronel on 06-21-2022 Eosinophils/100 WBC (Bld) 1.2 % . [facility] Erythrocyte distribution wid th Auto (RBC) [Ratio]Ordered By: Steve Coronel on 06-21-2022 Erythrocyte distribution width (RBC) [Ratio] 15.0 % 11.9-15.3 [facility] Estimated glomerular filtrat ion rate (GFR) non- AmericanOrdered By: Steve Coronel on 06-21-2022 GFR/1.73 sq M.predicted among non-blacks MDRD (S/P/Bld) [Vol rate/Area] > 60 mL/Min [facility] Globulin Calc (S) [Mass/Vol] Ordered By: Steve Coronel on 06-21-2022 Globulin (S) [Mass/Vol] 3.1 g/dL [facility] Hematocrit Auto (Bld) [Volum e fraction]Ordered By: Steve Coronel on 06-21-2022 Hematocrit (Bld) [Volume fraction] 40.1 % 34.0-46.4 [facility] Hemoglobin [Mass/volume] in BloodOrdered By: Steve Coronel on 06-21-2022 Hemoglobin (Bld) [Mass/Vol] 13.2 g/dL 11.8-15.4 [facility] Ketones Auto test strip (U) [Mass/Vol]Ordered By: Steve Coronel on 06-21-2022 Ketones (U) [Mass/Vol] Negative Negative [facility] Laboratory - Chemistry and C hemistry - challengeOrdered By: Steve Coronel on 06-21-2022 Lipase [Catalytic activity/Vol] 28.0 U/L 22-51 [facility] Natriuretic peptide B (Bld) [Mass/Vol] 35.0 pg/mL 5-100 [facility] Leukocytes [#/volume] correc emily for nucleated erythrocytes in Blood by Automated counOrdered By: Steve Coronel on 06-21-2022 WBC corrected for nucl RBC Auto (Bld) [#/Vol] 9.5 10*3/uL 3.8-11.6 [facility] Lymphocytes Auto (Bld) [#/Vo l]Ordered By: Steve Coronel on 06-21-2022 Lymphocytes (Bld) [#/Vol] 2.8 10*3/uL 1.00-4.8 [facility] Lymphocytes/100 WBC Auto (Bl d)Ordered By: Steve Coronel on 06-21-2022 Lymphocytes/100 WBC (Bld) 29.5 % . [facility] MCH Auto (RBC) [Entitic mass ]Ordered By: Steve Coronel on 06-21-2022 MCH (RBC) [Entitic mass] 28.7 pg 24.7-34.3 [facility] MCHC Auto (RBC) [Mass/Vol]Or dered By: Steve Coronel on 06-21-2022 MCHC (RBC) [Mass/Vol] 33.0 g/dL 32.0-35.0 [facility] MCV Auto (RBC) [Entitic vol] Ordered By: Steve Coronel on 06-21-2022 MCV (RBC) [Entitic vol] 86.9 fL 80-100 [facility] Monocyte distribution width [Entitic volume] in Blood by AutomatedOrdered By: Steve Coronel on 06-21-2022 Monocyte distribution width Auto (Bld) [Entitic vol] 18.39 % 0.00-20.00 [facility] Monocytes Auto (Bld) [#/Vol] Ordered By: Steve Coronel on 06-21-2022 Monocytes (Bld) [#/Vol] 0.4 10*3/uL 0.0-0.8 [facility] Monocytes/100 WBC Auto (Bld) Ordered By: Steve Coronel on 06-21-2022 Monocytes/100 WBC (Bld) 3.8 % . [facility] Neutrophils Auto (Bld) [#/Vo l]Ordered By: Steve Coronel on 06-21-2022 Neutrophils (Bld) [#/Vol] 6.2 10*3/uL 1.8-7.7 [facility] Neutrophils/100 WBC Auto (Bl d)Ordered By: Steve Coronel on 06-21-2022 Neutrophils/100 WBC (Bld) 64.9 % . [facility] Nitrite Test strip Ql (U)Ord ered By: Steve Coronel on 06-21-2022 Nitrite Ql (U) Negative Negative [facility] No Panel InformationOrdered By: Steve Coronel on 06-21-2022 D-Dimer Quantitative (PE/DVT) < 200 ng/mL 0-243 [facility] Comment on above: The reference range for D-dimer is <243 ng/mL D-dimer units.D-dimer results must be used in conjunction with a clinicalpretest probability (PTP) assessment model for deep veinthrombosis (DVT) and pulmonary embolism (PE). Results <230ng/mL d-dimer units can be used as a negative predictor inpatients with low or moderate probability for DVT/PE.Results above the exclusion threshold of 230 ng/ml D-dimerunits for DVT/PE may indicate the need for furtherdiagnostic testing.D-Dimer can be increased in hospitalized patients due toco-morbid conditions. Estimated GFR () > 60 mL/Min [facility] Comment on above: GFR estimated refere nce range: According to KDOQI guidelines, <60 ml/min/1.73m2 is sufficient to diagnose a patient with chronic kidney disease. Pharmacy Creatinine Clearance (Chem N/A [facility] Nucleated erythrocytes [Pres ence] in Blood by Automated countOrdered By: Steve Coronel on 06-21-2022 Nucleated RBC Auto Ql (Bld) 0.1 /100{WBC} 0-0.5 [facility] Platelet mean volume Auto (B ld) [Entitic vol]Ordered By: Steve Coronel on 06-21-2022 Platelet mean volume (Bld) [Entitic vol] 8.0 fL 6.3-10.7 [facility] Platelets Auto (Bld) [#/Vol] Ordered By: Steve Coronel on 06-21-2022 Platelets (Bld) [#/Vol] 356 10*3/uL 150-450 [facility] Protein Auto test strip (U) [Mass/Vol]Ordered By: Steve Coronel on 06-21-2022 Protein (U) [Mass/Vol] Negative Negative [facility] Protein [Mass/volume] in Ser um or PlasmaOrdered By: Steve Coronel on 06-21-2022 Protein [Mass/Vol] 6.8 g/dL 6.1-7.9 [facility] RBC Auto (Bld) [#/Vol]Ordere d By: Steve Coronel on 06-21-2022 RBC (Bld) [#/Vol] 4.61 10*6/uL 3.60-5.00 [facility] Serum or plasma alanine ott otransferase measurement without P-5'-P (enzymatic activiOrdered By: Steve Coronel on 06-21-2022 ALT No additional P-5'-P [Catalytic activity/Vol] 17 U/L 10-60 [facility] Serum or plasma albumin/glob ulin mass ratioOrdered By: Steve Coronel on 06-21-2022 Albumin/Globulin [Mass ratio] 1.2 {ratio} [facility] Serum or plasma alkaline chirag sphatase measurement (enzymatic activity/volume)Ordered By: Steve Coronel on 06-21-2022 ALP [Catalytic activity/Vol] 52 U/L 32-92 [facility] Serum or plasma anion gap de terminationOrdered By: Steve Coronel on 06-21-2022 Anion gap [Moles/Vol] 12.7 mmol/L 6.0-15.0 [facility] Serum or plasma aspartate am inotransferase measurement (enzymatic activity/volume)Ordered By: Steve Coronel on 06-21-2022 AST [Catalytic activity/Vol] 19 U/L 10-42 [facility] Serum or plasma calcium merari urement (mass/volume)Ordered By: Steve Coronel on 06-21-2022 Calcium [Mass/Vol] 9.1 mg/dL 8.2-10.2 [facility] Serum or plasma chloride lisa surement (moles/volume)Ordered By: Steve Coronel on 06-21-2022 Chloride [Moles/Vol] 100 mmol/L 95-114 [facility] Serum or plasma glucose merari urement (mass/volume)Ordered By: Steve Coronel on 06-21-2022 Glucose [Mass/Vol] 97 mg/dL 70-100 [facility] Comment on above: ADA recommended refe rence rangeRandom Glucose Reference Range is dependent on time and content of last meal. Glucose of more than 200 mg/dL in a nonstressed, ambulatory subject supports the diagnosis of Diabetes Mellitus. Serum or plasma potassium me asurement (moles/volume)Ordered By: Steve Coronel on 06-21-2022 Potassium [Moles/Vol] 3.9 mmol/L 3.5-5.1 [facility] [facility] Serum or plasma sodium measu rement (moles/volume)Ordered By: Steve Coronel on 06-21-2022 Sodium [Moles/Vol] 135 mmol/L 136-146 [facility] Serum or plasma total biliru bin measurement (mass/volume)Ordered By: Steve Coronel on 06-21-2022 Bilirubin [Mass/Vol] 0.6 mg/dL 0.3-1.2 [facility] Serum or plasma total carbon dioxide measurement (moles/volume)Ordered By: Steve Coronel on 06-21-2022 CO2 [Moles/Vol] 26.2 mmol/L 22.0-30.0 [facility] Serum or plasma urea nitroge n measurement (mass/volume)Ordered By: Steve Coronel on 06-21-2022 Urea nitrogen [Mass/Vol] 8 mg/dL 9-23 [facility] Specific gravity Auto test s trip (U) [Rel density]Ordered By: Steve Coronel on 06-21-2022 Specific gravity (U) [Rel density] 1.005 1.001-1.030 [facility] Troponin I.cardiac [Mass/vol ume] in Serum or Plasma by High sensitivity methodOrdered By: Steve Coronel on 06-21-2022 Troponin I.cardiac High sensitivity method [Mass/Vol] < 3 pg/mL 0-15 [facility] Urine clarity by refractomet ry automatedOrdered By: Steve Coronel on 06-21-2022 Clarity Refractometry automated (U) Clear Clear [facility] Urine glucose measurement by automated test strip (mass/volume)Ordered By: Steve Coronel on 06-21-2022 Glucose Auto test strip (U) [Mass/Vol] Normal mg/dL Normal [facility] Urine hemoglobin detection b y automated test stripOrdered By: Steve Coronel on 06-21-2022 Hemoglobin Auto test strip Ql (U) Negative Negative [facility] Urine leukocyte esterase det ection by automated test stripOrdered By: Steve Coronel on 06-21-2022 Leukocyte esterase Auto test strip Ql (U) Negative Negative [facility] Urobilinogen Auto test strip (U) [Mass/Vol]Ordered By: Steve Coronel on 06-21-2022 Urobilinogen (U) [Mass/Vol] Normal mg/dL Normal [facility] WBC Auto (Bld) [#/Vol]Ordere d By: Steve Coronel on 06-21-2022 WBC (Bld) [#/Vol] 9.5 10*3/uL 3.8-11.6 [facility] pH Auto test strip (U)Ordere d By: Steve Coronel on 06-21-2022 pH (U) 7.5 [pH] 5.0-9.0 [facility] Office Visit (Cardiology)on 06-04-2022 Follow-up visit Diagnoses/Problems [...] 1 TABLET BY MOUTH EVERYDAY AT BEDTIME Liothyronine Sodium 5 MCG Oral Tablettake 1 [...] and no (more content not included)... Normal [facility] COVID + FLU Quick Testingon 04-28-2022 SARS-CoV-2 (COVID-19) RNA CESAR+probe Ql (Unsp spec) Positive [facility] Other COVID + FLU Quick Testing Negative [facility] Other Quick Strepon 04-28-2022 S. 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 The Pap test does not represent a final diagnostic test for cervical cancer. Furthermore, the Pap test was not designed to screen for other malignancies (endometrial, ovarian cancer, etc....). False negatives and false positives have occurred. If clinically indicated, further patient evaluation is recommended. [facility] Vital Signs Date Time Vital Sign Value Performing Clinician Facility 07-22-2023 10:32-0500 Body temperature 98.2 [degF] DO Diony Anastasiamley II Work Phone: [facility] 07-22-2023 10:32-0500 Diastolic blood pressure 78 mm[Hg] DO Diony Cromley II Work Phone: [facility] 07-22-2023 10:32-0500 Heart rate 79 /min DO Diony Anastasiamley II Work Phone: [facility] 07-22-2023 10:32-0500 Respiratory rate 16 /min DO Diony Cromley II Work Phone: [facility] 07-22-2023 10:32-0500 SaO2% (BldA) [Mass fraction] 96 % DO Diony Singh II Work Phone: [facility] 07-22-2023 10:32-0500 Systolic blood pressure 132 mm[Hg] DO Diony Browney II Work Phone: [facility] 07-22-2023 08:20-0500 Body height 170.18 cm DO Diony Singh II Work Phone: [facility] 07-22-2023 08:20-0500 Body weight 124.2 kg DO Diony Singh II Work Phone: [facility] 07-08-2023 14:25-0500 Body height 170.18 cm Roula James Other [facility] Other 07-08-2023 14:25-0500 Body mass index (BMI) [Ratio] 42.28 kg/m2 Roula James Other [facility] Other 07-08-2023 14:25-0500 Body temperature 99.6 [degF] Roula James Other [facility] Other 07-08-2023 14:25-0500 Body weight 122.47 kg Roula James Other [facility] Other 07-08-2023 14:25-0500 Diastolic blood pressure 85 mm[Hg] Roula James Other [facility] Other 07-08-2023 14:25-0500 SaO2% (BldA) [Mass fraction] 96 % Roula James Other [facility] Other 07-08-2023 14:25-0500 Systolic blood pressure 140 mm[Hg] Roula Ramirez Other [facility] [employer] [place] Other 03-29-2023 10:13-0400 Diastolic blood pressure 98 mm[Hg] PHYSICIAN NO [facility] 03-29-2023 10:13-0400 Heart rate 70 /min PHYSICIAN NO [facility] 03-29-2023 10:13-0400 Respiratory rate 20 /min PHYSICIAN NO [facility] 03-29-2023 10:13-0400 SaO2% (BldA) [Mass fraction] 98 % PHYSICIAN NO [facility] 03-29-2023 10:13-0400 Systolic blood pressure 167 mm[Hg] PHYSICIAN NO [facility] 03-29-2023 08:29-0400 Body height 170.[address] [facility] 03-29-2023 08:29-0400 Body weight 120.[address] [facility] 03-27-2023 13:45-0400 Body height 170.18 cm Oscar Reed Other [facility] [employer] [place] Other 03-27-2023 13:45-0400 Body mass index (BMI) [Ratio] 42.03 kg/m2 Oscar Reed Other [facility] [employer] [place] Other 03-27-2023 13:45-0400 Body temperature 98.1 [degF] Oscar Reed Other [facility] Other 03-27-2023 13:45-0400 Body weight 121.75 kg Oscar Reed Other [facility] Other 03-27-2023 13:45-0400 Diastolic blood pressure 92 mm[Hg] Oscar Reed Other [facility] Other 03-27-2023 13:45-0400 Respiratory rate 18 /min Oscar Reed Other [facility] Other 03-27-2023 13:45-0400 SaO2% (BldA) [Mass fraction] 97 % Oscar Reed Other [facility] Other 03-27-2023 13:45-0400 Systolic blood pressure 156 mm[Hg] Oscar Reed Other [facility] Other 02-17-2023 13:15-0400 Body height 170.18 cm Beny Alvarez Other [facility] Other 02-17-2023 13:15-0400 Body mass index (BMI) [Ratio] 42.03 kg/m2 Beny Alvarez Other [facility] Other 02-17-2023 13:15-0400 Body weight 121.75 kg Beny Alvarez Other [facility] Other 02-17-2023 13:15-0400 Diastolic blood pressure 79 mm[Hg] Beny Alvarez Other [facility] Other 02-17-2023 13:15-0400 Systolic blood pressure 139 mm[Hg] Beny Alvarez Other [facility] Other 01-24-2023 10:47-0400 Diastolic blood pressure 84 mm[Hg] DO Donya Billings Work Phone: [facility] 01-24-2023 10:47-0400 Heart rate 94 /min DO Donya Billings Work Phone: [facility] 01-24-2023 10:47-0400 Respiratory rate 20 /min DO Donya Billings Work Phone: [facility] 01-24-2023 10:47-0400 SaO2% (BldA) [Mass fraction] 98 % DO Donya Billings Work Phone: [facility] 01-24-2023 10:47-0400 Systolic blood pressure 181 mm[Hg] DO Donya Billings Work Phone: [facility] 01-24-2023 09:58-0400 Body height 170.18 cm DO Donya Billings Work Phone: [facility] 01-24-2023 09:58-0400 Body temperature 98 [degF] DO Donya Billings Work Phone: [facility] 01-24-2023 09:58-0400 Body weight 122.75 kg DO Donya Billings Work Phone: [facility] 12-30-2022 23:30-0400 Diastolic blood pressure 84 mm[Hg] DO Donya Billings Work Phone: [facility] 12-30-2022 23:30-0400 Heart rate 81 /min DO Donya Billings Work Phone: [facility] 12-30-2022 23:30-0400 Respiratory rate 20 /min DO Donya Billings Work Phone: [facility] 12-30-2022 23:30-0400 SaO2% (BldA) [Mass fraction] 98 % DO Donya Billings Work Phone: [facility] 12-30-2022 23:30-0400 Systolic blood pressure 176 mm[Hg] DO Donya Billings Work Phone: [facility] 12-30-2022 17:21-0400 Body height 170.18 cm DO Donya Billings Work Phone: [facility] 12-30-2022 17:21-0400 Body temperature 97.6 [degF] DO Donya Billings Work Phone: [facility] 12-30-2022 17:21-0400 Body weight 122.1 kg DO Donya Billings Work Phone: [facility] 12-20-2022 16:32-0400 Diastolic blood pressure 87 mm[Hg] DO Donya Billings Work Phone: [facility] 12-20-2022 16:32-0400 Heart rate 80 /min DO Donya Billings Work Phone: [facility] 12-20-2022 16:32-0400 Respiratory rate 18 /min DO Donya Billings Work Phone: [facility] 12-20-2022 16:32-0400 SaO2% (BldA) [Mass fraction] 98 % DO Donya Billings Work Phone: [facility] 12-20-2022 16:32-0400 Systolic blood pressure 137 mm[Hg] DO Donya Billings Work Phone: [facility] 12-20-2022 12:47-0400 Body height 170.18 cm DO Donya Billings Work Phone: [facility] 12-20-2022 12:47-0400 Body temperature 98.7 [degF] DO Donya Billings Work Phone: [facility] 12-20-2022 12:47-0400 Body weight 121.5 kg DO Donya Billings Work Phone: [facility] 12-08-2022 08:50-0400 Body height 170.18 cm Donya Billings Work Phone: [facility] [address] DO Work Phone: 12-08-2022 08:50-0400 Body mass index (BMI) [Ratio] 42.29 kg/m2 Donya Billings Work Phone: [facility] [address] DO Work Phone: 12-08-2022 08:50-0400 Body surface area Derived from formula 2.3 m2 Donya Billings Work Phone: [facility] [address] DO Work Phone: 12-08-2022 08:50-0400 Body weight 122.47 kg Donya Billings Work Phone: [facility] [address] DO Work Phone: 12-08-2022 08:50-0400 Diastolic blood pressure 80 mm[Hg] Donya Billings Work Phone: [facility] [address] DO Work Phone: 12-08-2022 08:50-0400 Heart rate 80 /min Donya Billings Work Phone: [facility] [address] DO Work Phone: 12-08-2022 08:50-0400 Systolic blood pressure 128 mm[Hg] Donya Billings Work Phone: [facility] [address] DO Work Phone: 11-06-2022 00:59-0400 Diastolic blood pressure 68 mm[Hg] DO Donya Billings Work Phone: [facility] 11-06-2022 00:59-0400 Heart rate 86 /min DO Donya Billings Work Phone: [facility] 11-06-2022 00:59-0400 Respiratory rate 19 /min DO Donya Billings Work Phone: [facility] 11-06-2022 00:59-0400 SaO2% (BldA) [Mass fraction] 99 % DO Donya Billings Work Phone: [facility] 11-06-2022 00:59-0400 Systolic blood pressure 139 mm[Hg] DO Donya Billings Work Phone: [facility] 11-05-2022 20:12-0400 Body height 170.18 cm DO Donya Billings Work Phone: [facility] 11-05-2022 20:12-0400 Body temperature 97.9 [degF] DO Donya Billings Work Phone: [facility] 11-05-2022 20:12-0400 Body weight 122.95 kg DO Donya Billings Work Phone: [facility] 10-13-2022 10:03-0400 Body height 170.18 cm Donya Billings Work Phone: [facility] [address] [place] Work Phone: 10-13-2022 10:03-0400 Body mass index (BMI) [Ratio] 41.98 kg/m2 Donya Billings Work Phone: [facility] [address] [place] Work Phone: 10-13-2022 10:03-0400 Body surface area Derived from formula 2.29 m2 Donya Billings Work Phone: [facility] [address] [place] Work Phone: 10-13-2022 10:03-0400 Body weight 121.56 kg Donya Billings Work Phone: [facility] [address] [place] Work Phone: 10-13-2022 10:03-0400 Diastolic blood pressure 68 mm[Hg] Donya Billings Work Phone: [facility] [address] [place] Work Phone: 10-13-2022 10:03-0400 Heart rate 68 /min Donya Billings Work Phone: [facility] [address] [place] Work Phone: 10-13-2022 10:03-0400 Systolic blood pressure 122 mm[Hg] Donya Billings Work Phone: [facility] [address] [place] Work Phone: 09-01-2022 14:30-0400 Body height 170.18 cm Oliver Mario Other [facility] [employer] [place] Other 09-01-2022 14:30-0400 Body mass index (BMI) [Ratio] 41.97 kg/m2 Oliver Mario Other [employer] Other 09-01-2022 14:30-0400 Body weight 121.56 kg Oliver Mario Other [facility] [employer] [place] Other 09-01-2022 14:30-0400 Diastolic blood pressure 96 mm[Hg] Oliver Mario Other [employer] Other 09-01-2022 14:30-0400 Systolic blood pressure 159 mm[Hg] Oliver Mario Other [employer] Other 07-28-2022 13:20-0500 Body height 170.18 cm Donya Billings Work Phone: [facility] [address] DO Work Phone: 07-28-2022 13:20-0500 Body mass index (BMI) [Ratio] 42.13 kg/m2 Donya Billings Work Phone: [facility] [facility] DO Work Phone: 07-28-2022 13:20-0500 Body surface area Derived from formula 2.29 m2 Donya Billings Work Phone: [facility] [address] DO Work Phone: 07-28-2022 13:20-0500 Body weight 122.02 kg Donya Billings Work Phone: [facility] [address] DO Work Phone: 07-28-2022 13:20-0500 Diastolic blood pressure 68 mm[Hg] Donya Billings Work Phone: [facility] [address] [place] Work Phone: 07-28-2022 13:20-0500 Heart rate 78 /min Donya Billings Work Phone: [facility] [address] DO Work Phone: 07-28-2022 13:20-0500 Systolic blood pressure 142 mm[Hg] Odnyaalfred Billings Work Phone: [facility] [address] DO Work Phone: 06-21-2022 13:10-0500 Diastolic blood pressure 79 mm[Hg] DO Donya Billings Work Phone: [facility] 06-21-2022 13:10-0500 Heart rate 75 /min DO Donya Billings Work Phone: [facility] 06-21-2022 13:10-0500 Respiratory rate 18 /min DO Donya Billings Work Phone: [facility] 06-21-2022 13:10-0500 SaO2% (BldA) [Mass fraction] 98 % DO Donya Billings Work Phone: [facility] 06-21-2022 13:10-0500 Systolic blood pressure 164 mm[Hg] DO Donya Billings Work Phone: [facility] 06-21-2022 10:26-0500 Body temperature 98.7 [degF] DO Donya Billings Work Phone: [facility] 05-12-2022 16:00-0500 Body height 170.18 cm Oliver Mario Other [facility] [employer] [place] Other 05-12-2022 16:00-0500 Body mass index (BMI) [Ratio] 41.81 kg/m2 Oliver Mario Other [facility] [employer] [place] Other 05-12-2022 16:00-0500 Body weight 121.11 kg Oliver Mario Other [facility] Other 05-12-2022 16:00-0500 Diastolic blood pressure 89 mm[Hg] Oliver Mario Other [facility] Other 05-12-2022 16:00-0500 Systolic blood pressure 139 mm[Hg] Oliver Mario Other [facility] Other 04-28-2022 16:00-0500 Body height 170.18 cm Oscar Reed Other [facility] Other 04-28-2022 16:00-0500 Body mass index (BMI) [Ratio] 39.93 kg/m2 Oscar Reed Other [facility] Other 04-28-2022 16:00-0500 Body temperature 97.9 [degF] Oscar Reed Other [facility] Other 04-28-2022 16:00-0500 Body weight 115.67 kg Oscar Reed Other [facility] Other 04-28-2022 16:00-0500 Diastolic blood pressure 88 mm[Hg] Oscar Reed Other [facility] Other 04-28-2022 16:00-0500 Respiratory rate 18 /min Oscar Reed Other [facility] Other 04-28-2022 16:00-0500 SaO2% (BldA) [Mass fraction] 97 % Oscar Reed Other [facility] Other 04-28-2022 16:00-0500 Systolic blood pressure 139 mm[Hg] Oscar Reed Other [facility] Other Encounters Encounter Date Encounter Type Care Provider Facility Start: 11-16-2023 ambulatory Donya BILLINGS Facilit y:[facility] I[facility] Start: 07-28-2023 End: 07-28-2023 ambulatory Diony Hugo Brownrubin II Facility:[facility] Start: 07-26-2023 ambulatory Diony Hugo Brownrubin Facili ty:[facility] Start: 07-22-2023 End: 07-22-2023 Emergency department patient visit Diony Singh II Facility:[facility] Start: 07-22-2023 End: 07-22-2023 Emergency department patient visit DO Diony Singh II Work Phone: [facility] Work Phone: Start: 07-08-2023 End: 07-08-2023 ambulatory Roula James Other [facility] Other Start: 07-08-2023 Office outpatient visit 15 minutes Roula James [facility] Start: 07-08-2023 Telephone encounter Stephie Brambila MD Work Phone: Rheumatology Start: 06-28-2023 End: 06-29-2023 ambulatory Diony Singh Facility:[facility] Start: 06-14-2023 End: 06-14-2023 ambulatory Beny Alvarez Other [facility] Other Start: 06-14-2023 Telephone encounter Beny Marques ck [facility] Start: 05-24-2023 End: 05-24-2023 ambulatory [facility] Facility:[facility] Start: 05-19-2023 End: 05-[facility]-20[facility] Start: 05-17-2023 End: 05-18-2023 ambulatory [facility] Facility:[facility] Start: 05-10-2023 End: 05-11-2023 ambulatory Diony Singh Facility:[facility] Start: 04-14-2023 End: 04-15-2023 ambulatory Diony Hugo Browney Facility:[facility] Start: 04-11-2023 End: 04-12-2023 ambulatory XXXX NONE [facility] Start: 03-29-2023 End: 03-29-2023 ambulatory Diony Singh II Facility:[facility] Start: 03-29-2023 End: 03-29-2023 Admission to same day surgery center PHYSICIAN NO [facility] Work Phone: Start: 03-29-2023 End: 03-29-2023 ambulatory PHYSICIAN NO [facility] Work Phone: Start: 03-28-2023 End: 03-29-2023 ambulatory BECKY AGUIRRE Facility:[facility] Start: 03-27-2023 End: 03-27-2023 ambulatory Oscar Reed Other [employer] Other Start: 03-27-2023 Office outpatient visit 15 minutes Oscar Reed [facility] Start: 03-17-2023 End: 03-17-2023 ambulatory Diony Singh II Facility:[facility] Start: 03-17-2023 End: 03-17-2023 ambulatory PHYSICIAN NO [facility] Work Phone: Start: 03-17-2023 End: 03-17-2023 Patient encounter procedure PHYSICIAN NO [facility] [place] Work Phone: Start: 03-11-2023 End: 03-12-2023 ambulatory Diony Singh Facility:[facility] Start: 03-08-2023 End: 03-09-2023 ambulatory Roula SAEED Facility[facility] Start: 02-17-2023 End: 02-17-2023 Patient encounter procedure PHYSICIAN NO [facility] [place] Work Phone: Start: 02-17-2023 End: 09-21-2023 ambulatory PHYSICIAN NO [facility] Work Phone: Start: 02-17-2023 Office outpatient visit 25 minutes Beny MERCEDES [facility] Start: 02-16-2023 End: 02-17-2023 ambulatory XXXX NONE Facility[facility] Start: 02-02-2023 End: 02-03-2023 ambulatory Donya OZUNA [place]: [place] Start: 01-27-2023 End: 01-28-2023 ambulatory Franklyn MADERA Facility[facility] Start: 01-26-2023 End: 01-27-2023 ambulatory TAVO Brent LAKESTEVEN Facility:[facility] Start: 01-24-2023 End: 01-24-2023 Emergency department patient visit Diony Singh II Facility:[facility] Start: 01-24-2023 Chart Update Donya madera Work Phone: -[facility] [address] DO Work Phone: Start: 01-24-2023 End: 01-24-2023 Emergency department patient visit DO Donya Billings Work Phone: [facility] Work Phone: Start: 01-21-2023 End: 01-21-2023 ambulatory Diony Singh II Facility:[facility] Start: 01-21-2023 End: 01-21-2023 ambulatory DO Donya Billings Work Phone: [facility] Work Phone: Start: 01-21-2023 End: 01-21-2023 Patient encounter procedure DO Donya Billings Work Phone: [facility] [address] Work Phone: Start: 01-21-2023 End: 04-25-2023 ambulatory [employer] Roula SAEED Facility[facility] Start: 01-18-2023 End: 01-19-2023 ambulatory Diony Singh Facility[facility] Start: 01-05-2023 End: 01-06-2023 ambulatory Roula SAEED Facility[facility] Start: 01-05-2023 End: 01-05-2023 Emergency department patient visit Christiano Solis Facility[facility] Start: 01-04-2023 End: 01-05-2023 ambulatory Roula SAEED Facility[facility] Start: 12-30-2022 End: 12-31-2022 Emergency department patient visit Diony Singh II Facility:[facility] Start: 12-30-2022 End: 12-30-2022 Emergency department patient visit DO Donya Billings Work Phone: [facility] Work Phone: Start: 12-29-2022 End: 12-29-2022 ambulatory Amanda Montiel Facility:[facility] Start: 12-29-2022 End: 12-29-2022 ambulatory DO Donya Billings Work Phone: [facility] Work Phone: Start: 12-29-2022 End: 12-29-2022 Patient encounter procedure DO Donya Billings Work Phone: [facility] Work Phone: Start: 12-24-2022 End: 12-25-2022 ambulatory Franklyn MADERA Facility[facility] Start: 12-20-2022 End: 12-20-2022 Emergency department patient visit Josué Napier Facility:[facility] Start: 12-20-2022 End: 12-20-2022 Emergency department patient visit DO Donya Billings Work Phone: [facility] Work Phone: Start: 12-08-[address] Phillip Benjamin Facility: Start: 12-08-2022 FUV, Provider: Phillpi Benjamin, Status: Pen, Time: 8:40 AM Donya Billings Work Phone: [facility] [address] DO Work Phone: Start: 12-08-2022 Office outpatient visit 25 minutes Donya Billings Work Phone: [facility] [address] DO Work Phone: Start: 12-06-2022 Chart Update Donya madera Work Phone: [facility] 250 DO Work Phone: Start: 11-25-[address] Donya Harvey Awa Facility:[id number] Start: 11-11-2022 End: 11-12-2022 ambulatory Donya BILLINGS Facility:[facility] Start: 11-10-2022 End: 11-11-2022 ambulatory Donya BILLINGS Facility:[facility] Start: 11-05-2022 End: 11-06-2022 Emergency department patient visit Yogi Mcgraw Facility:[facility] Start: 11-05-2022 End: 11-06-2022 Emergency department patient visit DO Donya Billings Work Phone: [facility] Work Phone: Start: 10-31-2022 Chart Update Donya madera Work Phone: [facility] [address] [place] Work Phone: Start: 10-28-[address] Donya Harvey Awa Facility:[id number] Start: 10-13-2022 Office outpatient visit 25 minutes Donya Billings Work Phone: [facility] Work Phone: Start: 10-13-[address] Donya Harvey Awa Facility:[id number] Start: 10-07-2022 End: 10-08-[address] DONYA BILLINGS Facility:[facility] Start: 10-04-2022 End: 10-05-2022 ambulatory Donya OZUNA Facility[facility] Start: 10-01-2022 End: 10-02-2022 ambulatory UNKNOWN PROVIDER Facility:[facility] Start: 10-01-2022 End: 10-01-2022 [facility] Rad[facility] Comment on above: Thoracic spine pain Start: 09-30-2022 Orders Only Javad velez MD Work Phone: [facility] Orthopedic Spine Start: 09-29-2022 End: 09-30-2022 ambulatory Jacquijayant OCONNOR Facility: [place] Start: 09-20-2022 End: 09-20-2022 Emergency department patient visit Magalys Carlos Facility:[facility] Start: 09-17-2022 End: 09-17-2022 Orders Only Javad Leach MD Work Phone: [facility] Orthopedic Spine Start: 09-17-2022 End: 09-17-2022 Patient encounter procedure DO Donya Billings Work Phone: [facility] Ctr-CT [address] Work Phone: Start: 09-02-2022 End: 09-06-2022 ambulatory UNKNOWN PROVIDER Facility:[facility] Start: 09-02-2022 End: 09-06-2022 Office outpatient new 45 minutes Javad Leach MD Work Phone: [facility] Orthopedic Spine Comment on above: Thoracic spine pain (Primary Dx) Start: 09-01-2022 End: 09-01-2022 ambulatory Oliver Mario Other [facility] Other Start: 09-01-2022 Patient encounter procedure Oliver Mario [facility] Gastroenterology Start: 08-24-2022 Orders Only Javad velez MD Work Phone: [facility] Neurosurgery Start: 08-10-2022 End: 08-11-2022 ambulatory Donya BILLINGS Facility: [place] Start: 08-10-2022 End: 08-10-2022 ambulatory Kenyetta Dove Facility:[facility] Start: 08-10-2022 End: 08-10-2022 ambulatory DO Donya Billings Work Phone: [facility] C[facility] Work Phone: Start: 08-10-2022 End: 08-10-2022 Patient encounter procedure DO Donya Billings Work Phone: [facility] Ctr-Lab [address] [place] Work Phone: Start: 07-28-2022 FUV, Provider: Phillip Benjamin, Status: Pen, Time: 1:10 PM Donya Billings Work Phone: [employer] [address] DO Work Phone: Start: 07-28-2022 Office outpatient visit 25 minutes Donya Billings Work Phone: [employer] 250 DO Work Phone: Start: 07-28-[address] Phillip Benjamin Facility: Start: 07-26-2022 Chart Update Donya madera Work Phone: [employer] 250 DO Work Phone: Start: 07-20-2022 End: 07-21-2022 ambulatory Donya OZUNA Facility:[facility] Start: 07-16-[address] Donya Washington Facility:[id number] Start: 07-15-2022 End: 07-16-[address] ZHANE MANTILLA . Facility: Start: 07-13-2022 End: 07-13-2022 ambulatory Oliver Mario Other [facility] [employer] [place] Other Start: 07-13-2022 Telephone encounter Oliver Mario [facility] Gastroenterology Start: 06-21-2022 End: 06-21-2022 Emergency department patient visit DO Donya Billings Work Phone: [facility] Ctr-Emergency Room Work Phone: Start: 06-15-2022 End: 06-15-2022 ambulatory DO Donya Billings Work Phone: [facility] Work Phone: Start: 06-15-2022 End: 06-15-2022 Patient encounter procedure DO Donya Billings Work Phone: [facility] Ctr-Electrodiagnostics Work Phone: Start: 06-04-[address] Phillip Benjamin Facility: Start: 05-12-2022 End: 05-12-2022 ambulatory Oliver Mario Other [facility] Other Start: 05-12-2022 Patient encounter procedure Oliver Mario [facility] G[facility]enter[facility] Start: 05-04-2022 End: 05-04-2022 ambulatory DO Donya Billings Work Phone: [facility] Work Phone: Start: 05-04-2022 End: 05-04-2022 Patient encounter procedure DO Donya Billings Work Phone: [facility] Ctr-MRI [address] Start: 04-28-2022 End: 04-28-2022 ambulatory Oscar Reed Other [place] [employer] Other Start: 04-28-2022 Office outpatient visit 15 minutes Oscar Reed [facility] Urgent Care [facility] Start: 04-15-2022 End: 04-16-[address] ZHANE [...] End: 04-04-1998 Patient encounter procedure Conversion Yamel Benson [facility] Start: 04-04-1998 Results Only Conversion Yamel Benson [facility] Procedures Date Procedure Procedure Detail Performing Clinician Start: 07-22-2023 SARS-CoV-2, Influenza & RSV (PCR) DO Kranthi Singh II Work Phone: Start: 07-22-2023 Plain chest X-ray DO Diony Singh II Work Phone: Start: 03-29-2023 Esophagogastroduodenoscopy PHYSICIAN NO FAMILY Start: [...] Billings Work Phone: Start: 04-04-1998 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 Ap section Donya mckenzie Work Phone: History Of Prior Surgery Leslie Billings Work Phone: Hysterectomy Donya Ashraf Awa Work Phone: Procedure on back Donya Ashraf Awa Work Phone: Thyroidectomy Donya Ashraf Elfego madera Work Phone: Total colonoscopy Donya Ashraf Awa Work Phone: Plan of Treatment Date Care Activity Detail Author Start: 08-11-2027 Cholesterol [Mass/volume] in Serum or Plasma [facility] Start: 2027 Shingles (RZV) Vacci ne (1 of 2) Shingles (RZV) Vaccine (1 of 2) [facility] Start: 05-19-2026 Diabetes Screening Diabetes Screenin g [facility] Start: 12-30-2023 Screening for malign ant neoplasm of breast Mammogram Screening [facility] Start: 07-22-2023 Bacteria identified in Blood by Culture [facility] Start: 04-20-2023 FUV, Provider: Phillip Benjamin, Status: Pen, Time: 3:00 PM FUV, Provider: Phillip Benjamin, Status: Pen, Time: 3:00 PM [facility] [employer] 250 DO Work Phone: Start: 03-29-2023 [facility] Start: 03-29-2023 End: 03-29-2023 [facility] Start: 01-28-2023 Influenza vaccination Influenza Vacc ine (#1) [facility] Start: 01-24-2023 Duplex scan of lower limb veins US venous duplex LE LT [facility] Start: 01-24-2023 US Lower extremity v ein - left [facility] Start: 12-30-2022 CT of head without contrast CT head/brain wo con [facility] Start: 12-30-2022 CT Unspecified body region WO contrast [facility] Start: 12-08-2022 FUV, Provider: Phillip Benjamin, Status: Pen, Time: 8:40 AM FUV, Provider: Phillip Benjamin, Status: Pen, Time: 8:40 AM [facility] [employer] [address] [place] Work Phone: Start: 12-02-2022 FUV, Provider: Phillip Benjamin, Status: Pen, Time: 3:00 PM FUV, Provider: Phillip Benjamin, Status: Pen, Time: 3:00 PM [facility] 250 DO Work Phone: Start: 11-25-2022 ECHO, Provider: [facility] ULTRASOUND 01,[id number], Status: Pen, Time: 7:45 AM ECHO, Provider: [facility] ULTRASOUND 01,[id number], Status: Pen, Time: 7:45 AM [employer] [address] [place] Work Phone: Start: 09-30-2022 End: 10-01-2023 DOWNLOAD POWERSHARE IMAGES TO [facility] DOWNLOAD POWERSHARE IMAGES TO [facility] Imaging Routine Thoracic spine pain Expected: 09/30/2022, Expires: 10/01/2023 [employer] Work Phone: Comment on above: Expected: 09/30/2022 , Expires: 10/01/2023 Start: 09-17-2022 End: 09-18-2023 DOWNLOAD POWERSHARE IMAGES TO [facility] DOWNLOAD POWERSHARE IMAGES TO [facility] Imaging Routine Thoracic spine pain Expected: 09/17/2022, Expires: 09/18/2023 [employer] Work Phone: Comment on above: Expected: 09/17/2022 , Expires: 09/18/2023 Start: 09-06-2022 End: 09-07-2023 CT Thoracic spine WO contrast CT T-SPINE W/O CONTRAST Imaging Within 1 week Thoracic spine pain Expected: 09/06/2022, Expires: 09/07/2023 [employer] Work Phone: Comment on above: Expected: 09/06/2022 , Expires: 09/07/2023 Start: 09-02-2022 End: 09-02-2022 Patient encounter procedure 09/02/2022 Office Visit Orthopedics Javad Leach MD [address] [place] [address] [facility] Orthopedic Spine Start: 08-24-2022 End: 08-25-2023 DOWNLOAD POWERSHARE IMAGES TO [facility] DOWNLOAD POWERSHARE IMAGES TO [facility] Imaging Routine Cervical spondylosis with myelopathy Expected: 08/24/2022, Expires: 08/25/2023 [facility] Work Phone: Comment on above: Expected: 08/24/2022 , Expires: 08/25/2023 Start: 08-10-2022 [facility] Start: 2022 Cholesterol [Mass/volume] in Serum or Plasma Cholesterol [facility] Start: 2022 Lipid panel Lipid Screening [facility] Start: 2022 Screening for malign ant neoplasm of colon [facility] Start: 02-27-2022 Influenza vaccination Influenza Vacc ine (#1) [facility] Start: 01-29-2020 Influenza vaccination INFLUENZA (#1) [facility] Start: 2017 Mammography MAMMOGRAM [facility] Start: 2017 Screening for malign ant neoplasm of breast Mammography [facility] Start: 11-28-2015 [id number] Start: 2007 HPV TESTING HPV TESTING [facility] Start: 2007 Screening for malign ant neoplasm of cervix HPV Testing [facility] Start: 1998 PAP TESTING PAP TESTING [facility] Start: 1998 Screening for malign ant neoplasm of cervix [facility] Start: 1996 Urine microalbumin profile DTAP,TDAP,TD (1 - Tdap) [facility] Start: 1995 ANNUAL PCP TEAM 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 Start: 1988 Urine microalbumin profile DTaP,Tdap,Td Vaccine (4 - Tdap) [facility] Start: 1977 COVID-19 Vaccine (#1) COVID-19 Vacci ne (#1) [facility] Start: 1977 Screening for malign ant neoplasm of colon Colonoscopy [facility] 25-hydroxyvitamin D2 [Mass/volume] in Serum or Plasma [facility] 25-hydroxyvitamin D3 [Mass/volume] in Serum or Plasma [facility] 25-Hydroxyvitamin D3+25-Hydroxyvitamin D2 [Mass/volume] in Serum or Plasma [facility] Albumin [Mass/volume ] in Serum or Plasma [facility] Albumin/Globulin ratio [facility] Borrelia burgdorferi Ab [Interpretation] in Serum [facility] Borrelia burgdorferi IgG Ab [Presence] in Serum or Plasma by Immunoassay [facility] Borrelia burgdorferi IgG+IgM Ab [Presence] in Serum by Immunoassay [facility] Borrelia burgdorferi IgM Ab [Presence] in Serum or Plasma by Immunoassay [facility] Cefuroxime free [Mass/volume] in Serum or Plasma [facility] Electrophoresis: [id number] [facility] Electrophoresis: [id number] [facility] Electrophoresis: beta-globulin [facility] Electrophoresis: raisa ma globulin [facility] Estrogen [Mass/volum e] in Serum or Plasma [facility] Globulin [Mass/volum e] in Serum [facility] Lutropin [Units/volu me] in Serum or Plasma [facility] Patient Education [facility] Work Phone: Patient referral [facility] Work Phone: Progesterone [Mass/volume] in Serum or Plasma [facility] Protein [Mass/volume ] in Serum or Plasma [facility] Rheumatoid factor [Units/volume] in Serum or Plasma [facility] Immunizations Immunization Date Immunization Notes Care Provider Watson deleon 06-05-2001 hepatitis B vaccine, adult dosage Donya Billings Work Phone: [facility] 250 DO Work Phone: 12-28-2000 hepatitis B vaccine, adult dosage Donya Billings Work Phone: [facility] 250 DO Work Phone: 11-21-2000 measles, mumps and rubella virus vaccine Donya Billings Work Phone: [facility] DO Work Phone: 11-14-2000 hepatitis B vaccine, adult dosage Donya Billings Work Phone: [facility] 250 DO Work Phone: 01-07-1983 measles, mumps and rubella virus vaccine Donya Billings Work Phone: [facility] DO Work Phone: 10-11-1979 diphtheria, tetanus toxoids and acellular pertussis vaccine, unspecified formulation Donya Billings Work Phone: [facility] 250 DO Work Phone: 10-11-1979 poliovirus vaccine, inactivated Donya Billings Work Phone: [facility] 250 DO Work Phone: 08-01-1979 diphtheria, tetanus toxoids and pertussis vaccine Donya Billings Work Phone: [facility] 250 DO Work Phone: 08-01-1979 poliovirus vaccine, inactivated Donya Billings Work Phone: [facility] 250 DO Work Phone: 04-18-1979 diphtheria, tetanus toxoids and pertussis vaccine Donya Billings Work Phone: [facility] 250 DO Work Phone: 05-13-1978 diphtheria, tetanus toxoids and pertussis vaccine Donya Ashraf Awa Work Phone: [facility] 250 DO Work Phone: 05-13-1978 poliovirus vaccine, inactivated [facility] Billings [facility] Work Phone: 1977 poliovirus vaccine, inactivated [facility]a Billings [facility] Work Phone: Payers Date Payer Category Payer Medicaid [id number] 2021 Self-pay [id number] 2013 Medicare [id number] 1977 Unknown [id number] 2.16. 840.1.538064.3.579.2.732 1977 Unknown [id number] 2.16. 840.1.775536.3.579.2.732 1977 Unknown [id number] 2.16.84 0.1.189502.3.579.2.593 1977 Unknown [id number] 2.16.84 0.1.858983.3.579.2.593 1977 Unknown [id number] 2.16.84 0.1.391413.3.579.2.593 1977 Unknown [id number] 2.16.84 0.1.654949.3.579.2.593 1977 Unknown [id number] 2.16.84 0.1.486668.3.579.2.593 1977 Unknown [id number] 2.16.84 0.1.949511.3.579.2.593 1977 Unknown [id number] 2.16.84 0.1.903189.3.579.2.593 1977 Unknown [id number] 2.16.84 0.1.689862.3.579.2.593 1977 Unknown [id number] 2.16.8 40.1.662929.3.579.2.1068 1977 Unknown [id number] 2.16.8 40.1.400523.3.579.2.1068 1977 Unknown [id number] 2.16. 840.1.828219.3.579.2.356 1977 Unknown [id number] 2.16. 840.1.132849.3.579.2.356 1977 Unknown [id number] 2.16. 840.1.838751.3.579.2.356 1977 Unknown [id number] 2.16. 840.1.733383.3.579.2.356 1977 Unknown [id number] 2.16. 840.1.733615.3.579.2.356 1977 Unknown [id number] 2.16.8 40.1.425305.3.579.2. 1977 Unknown [id number] 2.16.8 40.1.562874.3.579.2. 1977 Unknown [id number] 2.16.8 40.1.461483.3.579.2. 1977 Unknown [id number] 2.16.8 40.1.183419.3.579.2.72 1977 Unknown [id number] 2.16.8 40.1.243463.3.579.2.72 1977 Unknown [id number] 2.16.8 40.1.903301.3.579.2.72 1977 Unknown [id number] 2.16.8 40.1.326541.3.579.2.72 1977 Unknown [id number] 2.16.8 40.1.191402.3.579.2.72 1977 Unknown [id number] 2.16.8 40.1.090698.3.579.2. 1977 Unknown [id number] 2.16.8 40.1.804346.3.579.2. 1977 Unknown [id number] 2.16.8 40.1.499552.3.579.2. 1977 Unknown [id number] 2.16.8 40.1.451222.3.579.2. 1977 Unknown [id number] 2.16.8 40.1.012708.3.579.2. 1977 Unknown [id number] 2.16.8 40.1.023725.3.579.2 1977 Unknown [id number] 2.16.8 40.1.600194.3.579.2 1977 Unknown [id number] 2.16.8 40.1.478089.3.579.2 1977 Unknown [id number] 2.16.8 40.1.260177.3.579.2 1977 Unknown [id number] 2.16.8 40.1.564350.3.579.2 1977 Unknown [id number] 2.16.8 40.1.964581.3.579.2. 1977 Unknown [id number] 2.16.8 40.1.753324.3.579.2. 1977 Unknown [id number] 2.16.8 40.1.101726.3.579.2. 1977 Unknown [id number] 2.16.8 40.1.397333.3.579.2 1977 Unknown [id number] 2.16.8 40.1.442308.3.579.2. 1977 Unknown [id number] 2.16.8 40.1.651197.3.579.2 1977 Unknown [id number] 2.16.8 40.1.434589.3.579.2.727 1959 Medicaid [id number] 2. 16.840.1.276025.19 1959 Medicare [id number] 2.1 6.840.1.521594.19 Unknown Unknown [id number] 2.16.8 40.1.246772.3.579.2.531 Unknown [id number] 2.16.8 40.1.766082.3.579.2.531 Unknown [id number] 2.16.8 40.1.228912.3.579.2.531 Unknown [id number] 2.16.8 40.1.749079.3.579.2.531 Unknown [id number] 2.16.8 40.1.878993.3.579.2.531 Unknown [id number] 2.16.8 40.1.564057.3.579.2.531 Unknown [id number] 2.16.8 40.1.278935.3.579.2.531 Unknown [id number] 2.16.8 40.1.287872.3.579.2.531 Unknown [id number] 2.16.8 40.1.611516.3.579.2.531 Unknown [id number] 2.16.8 40.1.945700.3.579.2.531 Unknown [id number] 2.16.8 40.1.245937.3.579.2.531 Unknown [id number] 2.16.8 40.1.249064.3.579.2.531 Unknown [id number] 2.16.8 40.1.086011.3.579.2.531 Unknown [id number] 2.16.8 40.1.144531.3.579.2.531 Social History Date Type Detail Facility Tobacco smoking status COIS Unknown if ever smoked [facility] Start: 1975 Sex Assigned At Not on file [facility] Start: 05-17-2023 Sex Assigned At [facility] Other Start: 11-19-2019 End: 05-17-2023 Tobacco smoking status NHIS Ex-smoker (finding) [facility] Start: 1975 Sex Assigned At Female [facility] Start: 06-21-2022 End: 06-21-2022 Tobacco smoking status NHIS Never smoked tobacco (finding) [facility] Start: 05-17-2023 [facility] Work Phone: Comment on above: carobrentshekhar; quit 01/28/22; Tobacco smoking status COIS Tobacco smoking consumption unknown [facility] Start: 12-20-2022 End: 01-24-2023 History of tobacco use Current smoker [facility] End: 07-30-2011 History of tobacco use Cigarette Smoker [facility] Start: 09-02-2022 Tobacco use and exposure Smokeless tobacco non-user [facility] Start: 05-17-2023 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 Start: 07-22-2023 Tobacco smoking status COIS Current some day smoker [facility] Goals Date Patient Goal Desired Activity /State Clinical Notes 11-12-2021 to 07-08-2023 Note Date & Type Note Facility 07-08-2023 Evaluation note Encounter Date Diagnosis Assessment Notes Jun, Cough (ICD-10 - R05.9) Jun, COVID (ICD-10 - U07.1) Rest. Drink plenty of fluids. Take hyng-oar-mkgsb er Tylenol or Motrin as needed for fever or discomfort. May continue to take upos-dgm-fphgf er cold and flu medicine for symptom management of your COVID as needed, but you will need to follow the instructions on the box. May take cbin-ztg-pvhbe er Delsym or Robitussin for cough. Take the antibiotic amoxicillin 875 mg twice a day for the next 10 days for your acute strep pharyngitis. Follow-up with your primary care provider if symptoms persist or go to the ER if symptoms worsen or you develop chest pain, shortness of breath, difficulty breathing. Patient is a 48-year-old female who presents to urgent care with complaints of cough, congestion, sore throat, runny nose, postnasal drip for the past few days. Patient endorses headache, intermittent fever and chills, denies nausea, vomiting, diarrhea. Patient was swabbed in the office for COVID and she said she took an at home COVID test that was positive. Patient did test positive for COVID in the office. Patient was also swabbed for strep throat which she was positive for here in the office. Patient exam is supportive of the diagnosis of an acute strep pharyngitis with tonsillar and pharyngeal exudate and erythema. Patient is being prescribed amoxicillin 875 mg twice daily for the next 10 days for the acute strep pharyngitis. She is to rest, drink plenty of fluids, take sivl-bhp-rekyz er Tylenol or Motrin as needed for fever or discomfort and may take dmtn-dvo-byhhk er cold and flu medicine for symptom management of with COVID. Patient was told she can take imcq-gqx-kergr er cough medicine for her cough. She is to follow-up with her primary care provider if symptoms persist or go to the ER if symptoms worsen including chest pain shortness of breath difficulty breathing pain with deep breathing. Patient is agreeable to treatment plan. Jun, Sore throat (ICD-10 - J02.9) Jun, Acute streptococcal pharyngitis (ICD-10 - J02.0) [facility] Other 02-09-2024 Miscellaneous Notes* Telephone Encounter - Stephie Brambila MD - 07/08/2023 11:04 AM EST Called patient patient to discuss lab results. MARCIO panel, dsDNA, C3, C4 were normal. No major abnormalities with other labs. At this time, no signs of rheumatologic autoimmune disease. Discussed Dermatology evaluation for rash and hair loss. Stephie Brambila MD [facility] NoteHNO ID: [id number] Author: STEPHIE BRAMBILA MD Service: ? Author Type: Physician Type: Progress Notes Filed: 06/26/2023 14:11 Note Text: Rheumatology Clinic Date of Service: 05/24/2023 Patient: Lupe Pickard Medical Record: [id number] Last Rheumatology visit: 05/24/2023 (with Stephie Brambila) Telephone Visit History of Present Illness Lupe Pickard is a 48 year old White female who presents on 05/24/2023 for evaluation of Follow Up. HISTORY OF PRESENT ILLNESS Past medical history: fibromyalgia, hypothyroidism, depression, anxiety, gastritis, Past surgical history: thyroidectomy, hysterectomy, 4 caesarian sections, eye surgery - unspecified She has diffuse pain throughout her body. Notes she gets a rash across the bridge of her nose. She also has significant fatigue. She notes she previously had positive WILL. She has had pain for over 10 years. She was diagnosed with fibromyalgia at least 10 years. Most of her pain is in her neck and back. Notes she has spinal pathology. There are times when she has pain from her head to her feet. Notices it in the joints and the muscles. All over pain occurs a few times a week. For her back and neck she uses heat/ice, massage which helps. She takes Bruni 5mg that does not do much for her right now. Activity such as laundry or other house work can aggravate her symptoms. She has had fatigue for many years as well. Notes she had thyroidectomy and is on thyroid replacement currently. Thyroid levels have been stable. Prior h/o Vitamin D replacement. On replacement. Reports iron deficiency with normal hemoglobin. Just started this. No other notable cell count aberrancies. Fatigue daily. Present even if she has slept 8-10 hours. Had a sleep study few months ago that was normal. No h/o renal or liver disease. No h/o lung disease. Notes she was diagnosed with Lyme and EBV based on her fatigue (do not have labs from this). Seen by a holistic physician at that time. Facial rash present intermittently for the last 1 year. No warmth, itching. No known triggering factors such as food, stress, alcohol, sun. Lasts for a few hours then resolves. Not currently active. Was going to the gym on the exercise bike 5 days a week. ROS: No oral or genital ulcers Color changes in the cold but no raynauds No pericarditis or pleuritis No blood clots No dry eyes or dry mouth No discoid rash No migraines Very intermittent numbness/tingling in her hands or feet. No photosensitivity Health maintenance: Up to date on pap smear Up to date on mammogram Normal colonoscopy Social: Tobacco - 2-3 cigarettes 2 times per month No ETOH No drug use On disability for the last 10 years. 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 Family History: No known FH of autoimmune disease INTERVAL HISTORY Follow up today to discuss labs. Labs show negative MARCIO panel, dsDNA, C3, C4. Patient-Entered Data PROMIS Assessments No flowsheet data found.No flowsheet data found.No flowsheet data found.No flowsheet data found. RAPID 3 Lucia Activities of Daily Living No Data Dress self? - Get in and out of bed? - Walk outdoors? - Wash and dry body? - Get in and out of car? - RAPID 3 Disease Activity Weighed Score Levels: 0 - 1: Near Remission 1.3 - 2.0: Low Severity 2.3 - 4.0: Moderate Severity 4.3 - 10.0: High Severity No flowsheet data found. Patient Health Questionnaire (PHQ-9) PHQ-9 01/18/2014 Score 19 (0-4) minimal depression, (5-9) mild depression, (10-14) moderate depression, (15-19) moderately severe depression, (20-27) severe depression Review of Systems ROS RHEUMATOLOGYAll other reviewed and negative other than HPI. Current Medications Current Outpatient Medications on File Prior to Visit Medication Sig levothyroxine (SYNTHROID) 112 mcg tablet Take 1 tablet (112 mcg) by mouth daily in the morning on an empty stomach Cholecalciferol, Vitamin D3, 50 mcg (2,000 unit) cap Take 1 capsule by mouth every afternoon. dilTIAZem CD (CARDIZEM CD, CARTIA XT) 240 mg 24 hr capsule Take 1 capsule by mouth every afternoon. escitalopram oxalate (LEXAPRO) 10 mg tablet Take 1 tablet by mouth every afternoon. HYDROcodone-acetaminophen (NORCO) 5-325 mg per tablet TAKE 1 TABLET BY MOUTH 2 TIMES A DAY NEEDED FOR PAIN magnesium oxide (MAG-OX) 400 mg (241.3 mg magnesium) tablet Take by mouth every 12 hours. propranolol (INDERAL) 20 mg tablet TAKE 1 TABLET BY MOUTH 2 TIMES A DAY NEEDED FOR ANXIETY temazepam (RESTORIL) 30 mg cap TAKE 1 CAPSULE BY MOUTH ONCE A DAY (AT BEDTIME) NEEDED FOR SLEEP 30 DAY SUPPLY vit B-comp w-Fe,Ca,FA<1mg (IRON-VITAMINS ORAL) Take by mouth. melatonin 10 mg tab Take by mouth. Multivitamin capsule Take 1 capsule by mouth once daily. buPROPion XL (WELLBUTRIN XL) 300 mg 24 hr tablet Take 300 mg by mouth once daily. Calcium Carbonate-Vitamin D3 (VITAMIN D-3) 180-5,000 mg-unit tab Take by mouth. CALCIUM CARBONATE (more content not included)...[facility] 05-17-2023 NoteHNO ID: [id number] Author: Stephie Brambila MD Service: ? Author Type: Physician Type: Progress Notes Filed: 05/17/2023 2:50 PM Note Text: Rheumatology Clinic Date of Service: 05/17/2023 Patient: Lupe Pickard Medical Record: [id number] Last Rheumatology visit: None at [facility] History of Present Illness Lupe Pickard is a 48 year old White female who presents on 05/17/2023 for an in-person visit for evaluation of Establish Care (All over pain; fatigue; feels like butter fly rash on face; +WILL in the past). HISTORY OF PRESENT ILLNESS Past medical history: fibromyalgia, hypothyroidism, depression, anxiety, gastritis, Past surgical history: thyroidectomy, hysterectomy, 4 caesarian sections, eye surgery - unspecified She has diffuse pain throughout her body. Notes she gets a rash across the bridge of her nose. She also has significant fatigue. She notes she previously had positive WILL. She has had pain for over 10 years. She was diagnosed with fibromyalgia at least 10 years. Most of her pain is in her neck and back. Notes she has spinal pathology. There are times when she has pain from her head to her feet. Notices it in the joints and the muscles. All over pain occurs a few times a week. For her back and neck she uses heat/ice, massage which helps. She takes Bruni 5mg that does not do much for her right now. Activity such as laundry or other house work can aggravate her symptoms. She has had fatigue for many years as well. Notes she had thyroidectomy and is on thyroid replacement currently. Thyroid levels have been stable. Prior h/o Vitamin D replacement. On replacement. Reports iron deficiency with normal hemoglobin. Just started this. No other notable cell count aberrancies. Fatigue daily. Present even if she has slept 8-10 hours. Had a sleep study few months ago that was normal. No h/o renal or liver disease. No h/o lung disease. Notes she was diagnosed with Lyme and EBV based on her fatigue (do not have labs from this). Seen by a holistic physician at that time. Facial rash present intermittently for the last 1 year. No warmth, itching. No known triggering factors such as food, stress, alcohol, sun. Lasts for a few hours then resolves. Not currently active. Was going to the gym on the exercise bike 5 days a week. ROS: No oral or genital ulcers Color changes in the cold but no raynauds No pericarditis or pleuritis No blood clots No dry eyes or dry mouth No discoid rash No migraines Very intermittent numbness/tingling in her hands or feet. No photosensitivity Health maintenance: Up to date on pap smear Up to date on mammogram Normal colonoscopy Social: Tobacco - 2-3 cigarettes 2 times per month No ETOH No drug use On disability for the last 10 years. 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 Family History: No known FH of autoimmune disease Patient-Entered Data PROMIS Assessments No flowsheet data found.No flowsheet data found.No flowsheet data found.No flowsheet data found. RAPID 3 Lucia Activities of Daily Living No Data Dress self? - Get in and out of bed? - Walk outdoors? - Wash and dry body? - Get in and out of car? - RAPID 3 Disease Activity Weighed Score Levels: 0 - 1: Near Remission 1.3 - 2.0: Low Severity 2.3 - 4.0: Moderate Severity 4.3 - 10.0: High Severity No flowsheet data found. Patient Health Questionnaire (PHQ-9) PHQ-9 01/18/2014 Score 19 (0-4) minimal depression, (5-9) mild depression, (10-14) moderate depression, (15-19) moderately severe depression, (20-27) severe depression Review of Systems ROS RHEUMATOLOGYAll other reviewed and negative other than HPI. Current Medications Current Outpatient Medications on File Prior to Visit Medication Sig levothyroxine (SYNTHROID) 112 mcg tablet Take 1 tablet (112 mcg) by mouth daily in the morning on an empty stomach Cholecalciferol, Vitamin D3, 50 mcg (2,000 unit) cap Take 1 capsule by mouth every afternoon. dilTIAZem CD (CARDIZEM CD, CARTIA XT) 240 mg 24 hr capsule Take 1 capsule by mouth every afternoon. escitalopram oxalate (LEXAPRO) 10 mg tablet Take 1 tablet by mouth every afternoon. HYDROcodone-acetaminophen (NORCO) 5-325 mg per tablet TAKE 1 TABLET BY MOUTH 2 TIMES A DAY NEEDED FOR PAIN magnesium oxide (MAG-OX) 400 mg (241.3 mg magnesium) tablet Take by mouth every 12 hours. propranolol (INDERAL) 20 mg tablet TAKE 1 TABLET BY MOUTH 2 TIMES A DAY NEEDED FOR ANXIETY temazepam (RESTORIL) 30 mg cap TAKE 1 CAPSULE BY MOUTH ONCE A DAY (AT BEDTIME) NEEDED FOR SLEEP 30 DAY SUPPLY vit B-comp w-Fe,Ca,FA<1mg (IRON-VITAMINS ORAL) Take by mouth. melatonin 10 mg tab Take by mouth. Multivitamin capsule Take 1 capsule by mouth once daily. buPROPion XL (WELLBUTRIN XL) 300 mg 24 hr tablet Take 300 mg by mouth once daily. Calcium Carbonate-Vitamin D3 (VITAMIN D-3) 180-5,000 mg-unit tab Take by mouth. CALCIUM CARBONATE/VITAMIN (more content not included)...[facility]11-08-2023 NotePROCEDURE: 30 DAY EVENT MONITOR REFERRING PHYSICIAN: GILBERTO Akins INDICATIONS: Palpitations. [...] ventricular contraction. Clinical correlation suggested. READ BY: Bradford Fay Dictated: 04/06/2023 [id number] Transcribed: 04/06/2023 cc:JOSH Akins-[facility] HospitalComment on above:Result Comment: Electronically Signed By: Owen Schmidt MD\.br\Date and Time Signed: 04/06/23 20:52 [id number] [facility]* Encounter Date Diagnosis Assessment Notes Treatment Notes Treatment Clinical Notes Feb, Rash and nonspecific skin eruption (ICD-10 - R21) Likely rash is related to monitor adhesive, although iron cannot be fully excluded. Stop iron. Consult prescribing physician tomorrow about iron supplementation and follow thheir plan of care. Continue with heart monitor and call tin plater office tomorrow morning for guidance as she [...] Pt understood and agreed to treatment plan. Dydra Other 09-21-2023 Evaluation note* Encounter Date Diagnosis [...] Jan, Blood in stool (ICD-10 - K92.1) Dydra Other 08-30-2023 NoteChief Complaint referral to [facility] for anxiety HPI Staff Patient will be establishing with Dr. Singh in February. Patient would like to have a referral to [facility] [place] for her Anxiety. PHQ -9 score 6 SNADRA-7 score 18 History of Present Illness Patient [...] PCP as scheduled in February [address] [facility] [place] 2. Screen for colon cancer (Z12.11: Encounter for screening for malignant neoplasm of colon) Ordered: [facility] [place] Referral Orders: [facility] [place] Follow-up No qualifying data [...] 2000 intl units or (more content not included)...[facility]Comment [facility]:Result Comment: Electronically Signed By: TAVO HARRIS CNP\Date and Time Signed: 01/26/23 14:46 [id number] Note [id number]:127[facility] 10-04-2022 NoteCystoscopy with Botox injection ? Voiding [...] if you have a fever over 100 degrees.[facility] 09-02-2022 History of Present illness Narrative* Javad [...] Risk protocol implemented: No documented in this [id number] Evaluation note* Encounter Date Diagnosis Assessment Notes Treatment Notes Treatment Clinical Notes Aug, Irritable bowel syndrome with constipation (ICD-10 - K58.1) Start Amitiza 24mcg twice daily. Start Miralax in addition to Amitiza. Titrate dose as needed. Referral to [facility] for rectal manometry Dydra Other 03-01-2023 History of Present illness Narrative* [...] months or earlier if the need arise -[facility] Lyssa-Riley Del Angel DO Work Phone: [phone] NoteCONSULTATION CONSULTATION DATE: 07/15/2022 HISTORY OF PRESENT ILLNESS: This is a 47-year-old female who returns to the clinic for a three month follow up for her chronic mid back pain and lower back pain. She was last seen on 04/15/2022 and, at that time, she received a referral to Dr. Bradley Leach at [facility]. She was having increased thoracic pain with [...] Bradley Leach at his new location at [facility] in [place]. Refills for baclofen and tramadol at the set dose and frequency will be sent to her pharmacy. We will furnish a letter to her PCP, at the patient's request, to take over her tramadol prescription. She will be followed up in the office post procedure.[facility] [id number] Note CONSULTATION PROCEDURE DATE: 07/29/2022 PREOPERATIVE DIAGNOSIS: [...] will be followed up in the office.[facility] [id number] Evaluation note* Encounter Date Diagnosis Assessment Notes Treatment Notes Treatment Clinical Notes Apr, Irritable bowel syndrome with constipation (ICD-10 - K58.1) Stop Amitiza Start Trualcne 3mg daily Follow up in 3-4 months Dydra Other 11-30-2022 Evaluation note* Encounter Date Diagnosis [...] (ICD-10 - J02.9) strep neg, see above. Dydra Other 11-17-2022 NoteCONSULTATION CONSULTATION DATE: 04/15/2022 HISTORY [...] send a referral to spine surgeon in [place], Dr. Bradley Leach. Patient is in agreement to this, and we will follow her up at our clinic in three months' time.[facility] [id number] NoteCONSULTATION CONSULTATION DATE: 01/06/2022 This is a [...] to initial consultation and prefers this at [facility] in [place]. We will see the patient in three months' time unless otherwise indicated.[facility] [id number] NoteCONSULTATION PROCEDURE DATE: 01/06/2022 PRE AND POSTOPERATIVE [...] will be followed up in the office.[facility] 11-12-2021 NoteCONSULTATION CONSULTATION DATE: 11/12/2021 HISTORY OF [...] Patient agrees with the plan of care. [facility] Signed and Approved by: BHAVNA MARR . 11/25/2021 16:24:00[facility]Evaluation noteNo assessment information [facility] Work Phone: Evaluation noteNo InformationNort [employer] Other Evaluation note* Diagnosis Cervical spondylosis with [...] Onset Date Resolution Status Abdominal pain acute [facility] Work Phone: Hismqvu general Narrative - Reported* Type Description Date Medical History Fibromyalgia Medical History arthritis in knees Medical History bursitis in hips Medical History Arthritis in lower back Medical History IBS Medical History depression Medical History anxiety Medical History Graves disease Medical History S/P Thyroidectomy Surgical History x 4 Surgical History hysterectomy Surgical History Thyroidectomy 06/2018 Hospitalization History childbirth Hospitalization History see surgery Dydra Other Hisoxnu general Narrative - Reported* Type Description Date [...] Hospitalization History childbirth Hospitalization History see surgery Dydra Other History of Present illness Narrative* Patient [...] months or earlier if the need arise -[facility] Heart-Riley [address] DO Work Phone: History of Present illness [...] months or earlier if the need arise [facility] Work Phone: Hospital Discharge instructions Additional Instructions Follow up with your primary care doctor Continue to take your tramadol as needed for pain Return to the ED if you develop worsening symptoms or [facility] Work Phone: Hospital Discharge instructions Additional Instructions [...] your primary care doctor and with your tin plater as planned.[facility] Work Phone: Hospital Discharge instructions Additional Instructions You can take Naprosyn and Tylenol as needed for your eye pain. Follow-up for your stress test and continue to take your antihypertensive medication as prescribed. Follow-up with your PCP for ongoing treatment of your high blood pressure. Follow-up with the eye doctor listed below regarding your left eye pain.[facility] Work Phone: Hospital Discharge instructions Additional Instructions [...] me in 6-8 weeks. Low FODMAP diet [email or web address] 1 p.o. every morning -Notify the doctor if you have any problems. -Office number [phone] Work Phone: Chief Complaint and Reason for [...] in stool/rash Reason for Visit Abdominal pain Chief Complaint chest tightness feve r cough sob Advance Directives No Advanced Directives Records Found [...] Specialty Diagnoses / Procedures Referred By Yared madrea Referred To Contact Radiology Diagnoses Thoracic spine pain Procedures CT T-SPINE W/O CONTRAST [place] [address] SCAN Referral ID Status Reason Start Date Expiration Date V isits Requested Visits Authorized [id number] Authorized 09/06/2022 09/06/2023 1 1 Specialty Diagnoses / Procedures Referred By Yared madera Referred To Contact Radiology Diagnoses Cervical spondylosis with myelopathy Procedures DOWNLOAD [facility]SH[facility]AGES TO [facility] Javad Leach MD opinions.[address] [phone] [facility] DIAGNOSTIC RADIOLOGY [address] [phone] Referral ID Status Reason Start Date Expiration Date V isits Requested Visits Authorized [id number] Authorized 08/24/2022 08/24/2023 1 1 Summary Purpose Additional Source Comments Source Comments (unrecognize d section and content) In the event this informatio n is protected by the Federal Confidentiality of Alcohol and Drug Abuse Patient Records regulations: The Federal rules restrict any use of the information to criminally investigate or prosecute any alcohol or drug abuse patient.[facility] Health[facility] the event this information is protected by the Federal Confidentiality of Alcohol and Drug Abuse Patient Records regulations: The Federal rules restrict any use of the information to criminally investigate or prosecute any alcohol or drug abuse patient.[facility] REASON FOR VISIT (unrecogniz ed section and content) Reason Comments New patient, to establish relationship B ack pain Specialty Diagnoses / Procedures Referred By Contac t Referred To Contact Neurosurgery Diagnoses Protrusion of thoracic intervertebral disc Thoracic radiculitis Ernie Roper [address] [place] [address] [facility] NEUROSURGERY [address] [phone] Referral ID Status Reason Start Date Expiration Date V isits Requested Visits Authorized [id number] Authorized 07/22/2022 07/22/2023 3 3 Specialty Diagnoses / Procedures Referred By Contac t Referred To Contact Radiology Diagnoses Thoracic spine pain Procedures CT NEURO IMAGE IMPORT(KYLE) DOWNLOAD POWERSHARE IMAGES TO Javad Leach MD [address] [place] [address] [facility] DIAGNOSTIC RADIOLOGY [address] [place] [address] Referral ID Status Reason Start Date Expiration Date Visits Re quested Visits Authorized [id number] Closed 09/30/2022 09/30/2023 1 1 Care Teams (unrecognized sec tion and content) Team Status: Inactive Member Role Status Dates Donya Billings , DO Primary Care Provider Active Bhavna Marr NP-C Attending Provider Active Team Status: Active Member [...] Status: Active Member Role Status Dates Diony Singh II, DO Primary Care Provider Active Team Status: Inactive Member Role Status Dates Diony Singh II, DO Primary Care Provider Active Mariya Kumari , DO Emergency Provider Active Team Status: Inactive Member Role Status Dates Diony Singh II, DO Primary Care Provider Active Franklyn Madera MD Attending Provider Active Phillip Benjamin MD Other Provider Active Team Status: Inactive Member Role Status Dates Diony Singh II, DO Primary Care Provider Active Yogi Mcgraw , DO Emergency Provider Active Team Status: Inactive Member Role Status Dates Diony Hugo Singh II, DO Primary Care Provider Active Kenyetta Dove MD Attending Provider Active Team Status: Inactive Member Role Status Dates Diony Arias Samantha II, DO Primary Care Provider, Other P rovider Active Radha Mcintosh AIRCRA[employer] ENGINE SPECIALIST-C Attending Provider Active Team Status: Inactive Member Role Status Dates Diony Singh II, DO Primary Care Provider Active Beny Alvarez MD Attending Provider Active Becky Aguirre APRN AIRCRA[employer] ENGINE SPECIALIST-C Other Provider Act cecelia Building Coordinator Relationship Specialty Start Date End Date Donya BillingsDO Referring Family Medicine 11/22/22 Team Status: Inactive Member Role Status Dates Diony Arias Samantha II, DO Primary Care Provider Active Start: July 22, 2023 End: July 22, 2023 Jacqui Samayoa , Emergency Provider Active St art: July 22, 2023 End: July 22, 2023 Goals (unrecognized section and content) Goals may be documented in a n alternate section INFORMATION SOURCE (unrecogn ized section and content) DATE CREATED AUTHOR 10/04/2022 [facility] DATE CREATED AUTHOR AUTHOR'S ORGANIZ ATION 10/11/2022 [facility] DATE CREATED AUTHOR AUTHOR'S ORGANIZ ATION 11/27/2022 [facility] DATE CREATED AUTHOR AUTHOR'S ORGANIZ ATION 12/09/2022 [facility] DATE CREATED AUTHOR AUTHOR'S ORGANIZ ATION 12/09/2022 [employer] DATE CREATED AUTHOR AUTHOR'S ORGANIZ ATION 07/03/2023 [facility] DATE CREATED AUTHOR AUTHOR'S ORGANIZ ATION 07/10/2023 [facility] DATE CREATED AUTHOR AUTHOR'S ORGANIZ ATION 07/29/2023 [facility] FOR RECORDS PERTAINING TO PATIENTS WHO ARE [...] BE BASED ON THE PRIMARY CLINICAL RECORDS. [employer] [facility]. provides no warranty or guarantee of the accuracy or completeness of information in this document.
--- NOTE | 2023-08-03 09:53 | P.CN_ITS ---
Consult Note: HPI Data of Consult Patient: known to practice within the last 3 years Requesting Physician: Brielle Dominguez NP Primary Care Provider: Non-Staff Physician, MD Consult Narrative Reason for consult: f/u Narrative: Lupe Pickard a pleasant 47 year old female presents for evaluation and management of mid back pain, today rating pain 4/10. Patient reports continued improvement in pain after thermal RFA, now would say 75% pain relief still worse on the right side with pain and spasming. patient has benefitted from norco 5/325 BID PRN for moderate to severe pain, reports baclofen does not help and causes drowsiness so she has stopped taking. finds mild benefit to tylenol. cc:: CC: Brielle Dominguez NP Review of Systems 2 ROS0 Status of ROS 10 or more systems reviewed and unremark able except as noted in history and below Musculoskeletal Reports: back pain PFSH PFSH Medical History Constipation ?K59.00 - Constipation, unspecified (ICD-10) Fibromyalgia ?M79.7 - Fibromyalgia (ICD-10) IBS (irritable bowel syndrome) ?K58.9 - Irritable bowel syndrome without diarrhea (ICD-10) Osteoarthritis ?M19.90 - Unspecified osteoarthritis, unspecified site (ICD-10) Surgical History History of hysterectomy ?Z90.710 - Acquired absence of both cervix and uterus (ICD-10) History of thyroidectomy ?E89.0 - Postprocedural hypothyroidism (ICD-10) Meds Home Medications and Allergies Home Medications Medication Instructions Recorded Confirmed Type cholecalciferol (vitamin D3) 50 50 mcg PO DAILY 12/30/22 02/15/23 History mcg (2,000 unit) capsule (Vitamin D3) levothyroxine 112 mcg tablet 112 mcg PO DAILY 12/30/22 02/15/23 History liothyronine 5 mcg tablet 10 mcg PO DAILY 12/30/22 02/15/23 History lubiprostone 24 mcg capsule 24 mcg PO DAILY 12/30/22 02/15/23 History magnesium oxide 400 mg (241.3 mg 400 mg PO DAILY 12/30/22 02/15/23 History magnesium) tablet melatonin 10 mg tablet 10 mg PO DAILY 12/30/22 02/15/23 History multivitamin (Daily Multi-Vitamin 1 tab PO DAILY 12/30/22 02/15/23 History tablet) diltiazem HCl 180 mg 240 mg PO Q24H 02/01/23 02/15/23 History capsule,extended release 24 hr hydrocodone 5 mg-acetaminophen 325 1 tab PO BID PRN pain #60 tabs 03/09/23 Rx mg tablet baclofen 10 mg tablet 10 mg PO BID 04/06/23 04/06/23 History baclofen 10 mg tablet 10 mg PO BID #60 tabs 04/06/23 Rx hydrocodone 5 mg-acetaminophen 325 1 tab PO BID PRN pain #60 tabs 04/07/23 Rx mg tablet hydrocodone 5 mg-acetaminophen 325 1 tab PO BID PRN pain #60 tabs 05/02/23 Rx mg tablet hydrocodone 5 mg-acetaminophen 325 1 tab PO BID PRN pain #55 tabs 06/06/23 Rx mg tablet hydrocodone 5 mg-acetaminophen 325 1 tab PO BID PRN pain #55 tabs 07/04/23 Rx mg tablet Allergies Allergy/AdvReac Type Severity Reaction Status Date / Time No Known Drug Allergies Allergy Verified 02/15/23 11:50 Exam Constitutional Documenting provider has reviewed patient's vital signs: yes Common normals: no apparent distress, oriented x3, healthy appearing, alert and well nourished General appearance: cooperative Nutritional appearance: overweight HENMT Common normals: normocephalic, hearing grossly normal bilaterally and moist oral mucous membranes Head and scalp: normocephalic Eye Common normals: PERRL Pupil: PERRL Neck & C-Spine Common normals: full ROM General: normal visual inspection Chest Common normals: inspection of chest normal Respiratory Common normals: normal respiratory effort, no retractions and no use of accessory muscles Back & Pelvis Thoracic spine/upper back: ROM limited, pain with ROM and paraspinal muscle tenderness Lumbar spine/lower back: ROM limited, pain with ROM, paraspinal muscle tenderness and straight leg raise negative bilaterally Back image (female): 2 1. 2. 3. Extremity Common normals: normal to inspection and full ROM Neuro Common normals: oriented x3, CN's II-XII intact bilaterally, moves all extremities, no focal motor deficits, no sensory deficits noted and deep tendon reflexes 2+ bilaterally Sensorium/orientation: alert Motor exam: strength 5/5 throughout and no movement abnormalities noted Psych Common normals: mental status grossly normal, thought process normal, cooperative, affect normal, speech normal and activity/motor behavior normal Speech: normal speech Thought process: normal thought process Assessment and Plan Assessment and Plan (1) Thoracic spondylosis: (2) Muscle spasm: (3) Chronic, continuous use of opioids: Plan patient has noticed decrease in functional ability with decrease in opioid pain medication and would like to go back to BID PRN. Patient reports with the [place] 5-325mg and additional tylenol she is able to complete tasks at home and care for self better TENS unit discussed and ordered declining muscle relaxer increase hydrocodone-acetaminophen 5-325mg BID PRN moderate to severe pain 60 tabs month narcan previously discussed and prescribed, UDS within 1 year, do not need to repeat at this time update thoracic MRI without contrast, consider CARMEN f/u after MRI
== END 2023-08-03 09:15 | disposition home or self-care (01) ==
PROVIDERS: Visit Provider Nurse Practitioner
DX: M47.814 Spondylosis without myelopathy or radiculopathy, thoracic region (principal); M62.838 Other muscle spasm; Z79.891 Long term (current) use of opiate analgesic
CPT/HCPCS: G0463

== ENCOUNTER 2023-08-24 14:46 | Outpatient (OUT) | payer MEDICARE, MEDICAID, SELFPAY ==
--- NOTE | 2023-08-24 15:19 | P.CN_ITS ---
Consult Note: HPI Data of Consult Patient: known to practice within the last 3 years Requesting Physician: Brielle Dominguez NP Primary Care Provider: Non-Staff Physician, MD Consult Narrative Reason for consult: f/u Narrative: Lupe Pickard a pleasant 47 year old female presents for evaluation and management of mid back pain, today rating pain 6/10. Patient reports mild continued improvement in pain after thermal RFA, perviously reported 75% pain relief still worse on the right side with pain and spasming. patient reports little to no benefit at this time from norco 5/325 BID PRN for moderate to severe pain, reports baclofen does not help and causes drowsiness so she has stopped taking. finds mild benefit to tylenol/NSAIDs. Patient here today to review thoracic MRI which shows mild central canal narrowing and foraminal narrowing at multiple levels with facet arthropathy. Patient previously evaluated by orthopedic surgery who recommended weight loss and a breast reduction., cc:: CC: Brielle Dominguez NP Review of Systems ROS Status of ROS 10 or more systems reviewed and unremark able except as noted in history and below Musculoskeletal Reports: back pain PFSH PFSH Medical History Constipation ?K59.00 - Constipation, unspecified (ICD-10) Fibromyalgia ?M79.7 - Fibromyalgia (ICD-10) IBS (irritable bowel syndrome) ?K58.9 - Irritable bowel syndrome without diarrhea (ICD-10) Osteoarthritis ?M19.90 - Unspecified osteoarthritis, unspecified site (ICD-10) Surgical History History of hysterectomy ?Z90.710 - Acquired absence of both cervix and uterus (ICD-10) History of thyroidectomy ?E89.0 - Postprocedural hypothyroidism (ICD-10) Meds Home Medications and Allergies Home Medications ?Medication ?Instructions ?Recorded ?Confirmed ?Type cholecalciferol (vitamin D3) 50 50 mcg PO DAILY 12/30/22 02/15/23 History mcg (2,000 unit) capsule (Vitamin D3) levothyroxine 112 mcg tablet 112 mcg PO DAILY 12/30/22 02/15/23 History liothyronine 5 mcg tablet 10 mcg PO DAILY 12/30/22 02/15/23 History lubiprostone 24 mcg capsule 24 mcg PO DAILY 12/30/22 02/15/23 History magnesium oxide 400 mg (241.3 mg 400 mg PO DAILY 12/30/22 02/15/23 History magnesium) tablet melatonin 10 mg tablet 10 mg PO DAILY 12/30/22 02/15/23 History multivitamin (Daily Multi-Vitamin 1 tab PO DAILY 12/30/22 02/15/23 History tablet) diltiazem HCl 180 mg 240 mg PO Q24H 02/01/23 02/15/23 History capsule,extended release 24 hr hydrocodone 5 mg-acetaminophen 325 1 tab PO BID PRN pain #60 tabs 04/07/23 Rx mg tablet hydrocodone 5 mg-acetaminophen 325 1 tab PO BID PRN pain #55 tabs 07/04/23 Rx mg tablet Lactobacillus acidophilus 10 100 mmu cells PO DAILY 08/03/23 08/03/23 History billion cell capsule (Probiotic) aspirin 81 mg capsule 81 mg PO DAILY 08/03/23 08/03/23 History escitalopram oxalate 20 mg tablet 20 mg PO DAILY 08/03/23 08/03/23 History (Lexapro) ferrous sulfate 325 mg (65 mg 325 mg PO DAILY 08/03/23 08/03/23 History iron) tablet (Feosol) hydrocodone 5 mg-acetaminophen 325 1 tab PO BID PRN pain #60 tabs 08/03/23 Rx mg tablet propranolol 20 mg tablet 20 mg PO BID 08/03/23 08/03/23 History turmeric 400 mg capsule mg PO 08/03/23 History Allergies Allergy/AdvReac Type Severity Reaction Status Date / Time No Known Drug Allergies Allergy Verified 02/15/23 11:50 Exam Constitutional Documenting provider has reviewed patient's vital signs: yes Common normals: no apparent distress, oriented x3, healthy appearing, alert and well nourished General appearance: cooperative Nutritional appearance: overweight HENMT Common normals: normocephalic, hearing grossly normal bilaterally and moist oral mucous membranes Head and scalp: normocephalic Eye Common normals: PERRL Pupil: PERRL Neck & C-Spine Common normals: full ROM General: normal visual inspection Chest Common normals: inspection of chest normal Respiratory Common normals: normal respiratory effort, no retractions and no use of accessory muscles Back & Pelvis Thoracic spine/upper back: ROM limited, pain with ROM and paraspinal muscle tenderness Lumbar spine/lower back: ROM limited, pain with ROM, paraspinal muscle tenderness and straight leg raise negative bilaterally Other: pain radiating in right thoracic spine to right rib cage, reports burning sensation alont T, T9 dermatomal pattern. Extremity Common normals: normal to inspection and full ROM Neuro Common normals: oriented x3, CN's II-XII intact bilaterally, moves all extremities, no focal motor deficits, no sensory deficits noted and deep tendon reflexes 2+ bilaterally Sensorium/orientation: alert Motor exam: strength 5/5 throughout and no movement abnormalities noted Psych Common normals: mental status grossly normal, thought process normal, cooperative, affect normal, speech normal and activity/motor behavior normal Speech: normal speech Thought process: normal thought process Assessment and Plan Assessment and Plan (1) Thoracic neuritis: (2) Thoracic spondylosis: (3) Muscle spasm: (4) Chronic pain syndrome: (5) Encounter for long-term use of opiate analgesic: Plan MRI of thoracic spine reviewed right T9 and T10 SNRB under fluoroscopy NS referral to Dr Lee for evaluation, although likely nonsurgical. Recently evaluated by orthopedic surgery who recommended weight loss and breast reduction. pt has numerous etiologies of pain with thoracic stenosis, thoracic spondylosis, hx of FM and myofascial pain. previously reported pain medication was mildly beneficial and we increased from 55 tabs/month to 60 tablets/month, patient reports little to no relief from hydrocodone-acetaminophen 5-325mg and ibuprofen has worked better in the past. will trial hydrocodone-acetaminophen 7.5-325mg BID PRN moderate to severe pain. discussed with multiple etiologies and failure to respond to opioid therapy if hydrocodone-acetaminophen 7.5-325mg is not beneficial we will not continue opioid therapy. Opioid therapy is not ideal for chronic pain unless it improves pain and functional ability. KENDRA progressively worsening since 10/19, previously 24% now ranges mid 40s narcan previously prescribed f/u after injection
== END 2023-08-24 14:47 | disposition home or self-care (01) ==
LOC: PM 14:46
PROVIDERS: Visit Provider Nurse Practitioner
DX: M54.14 Radiculopathy, thoracic region (principal); M47.814 Spondylosis without myelopathy or radiculopathy, thoracic region; M62.838 Other muscle spasm; G89.4 Chronic pain syndrome; Z79.891 Long term (current) use of opiate analgesic
CPT/HCPCS: G0463

== ENCOUNTER 2023-10-10 08:43 | Day surgery (SDC) | payer MEDICARE, MEDICAID, SELFPAY ==
[2023-10-10 09:16] VITALS: BP 160/93; PULSE 72; TEMP 36.6; O2SAT 98
[2023-10-10 09:59] VITALS: BP 190/95; PULSE 70; O2SAT 96
[2023-10-10] MEDS: 0.9 % SODIUM CHLORIDE 10 ML SYRINGE - SALINE FLUSH INJ (10:00)
[2023-10-10] MEDS: BUPIVACAINE HCL 0.25% PF 25 MG/10 ML VIAL INJ (10:01)
[2023-10-10] MEDS: IOHEXOL 240 MG/ML - 10 ML VIAL INJ (10:01)
[2023-10-10] MEDS: DEXAMETHASONE SOD PHOS 10 MG/ML VIAL INJ (10:01)
[2023-10-10] MEDS: LIDOCAINE HCL 2% PF 100 MG/5 ML VIAL INJ (10:02)
[2023-10-10 10:03] VITALS: BP 171/75; PULSE 62; O2SAT 96
--- NOTE | 2023-10-10 10:03 | P.ON_ITS ---
Date of procedure: 10/10/23 Pre-op diagnosis: M54.14 Post-op diagnosis: same as pre-op Procedure: Procedure: Right T9-10, 10-11 transforaminal epidural steroid injection Medications: Bupivacaine 0.25% 2cc, lidocaine 2% 2cc, dexamethasone 10mg The patient was seen and examined in the preoperative holding area.? Informed consent was obtained and placed on the chart.? Patient was brought to the medical procedure unit and placed in the prone position where a timeout was completed verifying the correct patient, procedure site, position, and planned special equipment using sterile aseptic technique.? Under direct fluoroscopic visualization a 25-gauge Quincke tipped spinal needle was advanced to the designated neural foramen where contrast dye was injected to show adequate spread.? The needle was inserted at level right T9-10. There was no evidence of vascular or adverse uptake.? Epidural spread was appreciated.? The above- mentioned injectate was then placed in a 1.5 mL aliquot preceded by negative aspiration.? The needle was removed. The needle was inserted and the procedure repeated at level right T10-11.? The surgery site was covered.? Patient was taken to the postprocedural recovery area and monitored for an appropriate length of time before found suitable for discharge in the accompaniment of a responsible adult. Anesthesia: Local Surgeon: Willian Jensen Pathology: none sent Condition: stable Disposition: no change
== END 2023-10-10 10:08 | disposition home or self-care (01) ==
PROVIDERS: Visit Provider Anesthesiology
DX: M54.14 Radiculopathy, thoracic region (principal)
CPT/HCPCS: 64479; 64480; J1100; Q9966

== ENCOUNTER 2023-10-19 12:57 | Outpatient (OUT) | payer MEDICARE, MEDICAID, SELFPAY ==
--- NOTE | 2023-10-19 13:09 | P.CN_ITS ---
Consult Note: HPI Data of Consult Patient: known to practice within the last 3 years Requesting Physician: Brielle Dominguez NP Primary Care Provider: Non-Staff Physician, MD Consult Narrative Reason for consult: f/u Narrative: Lupe Pickard a pleasant 47 year old female presents for evaluation and management of mid back pain, today rating pain 4/10 ache. Previously reported benefit from left and right T7,8 T9,10 RFAs for 1 month before returning to clinic for pain in right thoracic spin. Prior thoracic MRI which shows mild central canal narrowing and foraminal narrowing at multiple levels with facet arthropathy. Patient previously evaluated by orthopedic surgery who recommended weight loss and a breast reduction. I had referred pt to Dr Upton for evaluation and per their office they contacted the patient 3x. Patient underwent right T9-10 T10-11 nerve root injection with unknown improvement, 1st day notable difference however pain is bilateral. Patient cannot take NSAIDs as they cause edema, reports failing numerous muscle relaxants most recently baclofen. No improvement from escalation to [place] 7.5mg BID PRN from prior [place] 5-325mg BID PRN. Has failed tramadol in the past. KENDRA 44%, same as prior visit. cc:: CC: Brielle Dominguez NP Review of Systems 2 ROS0 Status of ROS 10 or more systems reviewed and unremark able except as noted in history and below Musculoskeletal Reports: back pain PFSH PFSH Medical History Osteoarthritis ?M19.90 - Unspecified osteoarthritis, unspecified site (ICD-10) Fibromyalgia ?M79.7 - Fibromyalgia (ICD-10) IBS (irritable bowel syndrome) ?K58.9 - Irritable bowel syndrome without diarrhea (ICD-10) Constipation ?K59.00 - Constipation, unspecified (ICD-10) Surgical History History of hysterectomy ?Z90.710 - Acquired absence of both cervix and uterus (ICD-10) History of thyroidectomy ?E89.0 - Postprocedural hypothyroidism (ICD-10) Meds Home Medications and Allergies Home Medications ?Medication ?Instructions ?Recorded ?Confirmed ?Type cholecalciferol (vitamin D3) 50 50 mcg PO DAILY 12/30/22 10/10/23 History mcg (2,000 unit) capsule (Vitamin D3) levothyroxine 112 mcg tablet 112 mcg PO DAILY 12/30/22 10/10/23 History liothyronine 5 mcg tablet 10 mcg PO DAILY 12/30/22 10/10/23 History lubiprostone 24 mcg capsule 24 mcg PO DAILY 12/30/22 10/10/23 History magnesium oxide 400 mg (241.3 mg 400 mg PO DAILY 12/30/22 10/10/23 History magnesium) tablet melatonin 10 mg tablet 10 mg PO DAILY 12/30/22 10/10/23 History multivitamin (Daily Multi-Vitamin 1 tab PO DAILY 12/30/22 10/10/23 History tablet) diltiazem HCl 180 mg 240 mg PO Q24H 02/01/23 10/10/23 History capsule,extended release 24 hr Lactobacillus acidophilus 10 100 mmu cells PO DAILY 08/03/23 10/10/23 History billion cell capsule (Probiotic) aspirin 81 mg capsule 81 mg PO DAILY 08/03/23 08/03/23 History escitalopram oxalate 20 mg tablet 20 mg PO DAILY 08/03/23 10/10/23 History (Lexapro) ferrous sulfate 325 mg (65 mg 325 mg PO DAILY 08/03/23 10/10/23 History iron) tablet (Feosol) propranolol 20 mg tablet 20 mg PO BID 08/03/23 10/10/23 History turmeric 400 mg capsule mg PO 08/03/23 History hydrocodone 7.5 mg-acetaminophen 1 tab PO BID PRN pain #60 tabs 08/24/23 10/10/23 Rx 325 mg tablet diazepam 10 mg tablet mg 10/10/23 History Allergies Allergy/AdvReac Type Severity Reaction Status Date / Time No Known Drug Allergies Allergy Verified 10/10/23 09:16 Exam Constitutional Documenting provider has reviewed patient's vital signs: yes Common normals: no apparent distress, oriented x3, healthy appearing, alert and well nourished General appearance: cooperative Nutritional appearance: overweight HENMT Common normals: normocephalic, hearing grossly normal bilaterally and moist oral mucous membranes Head and scalp: normocephalic Eye Common normals: PERRL Pupil: PERRL Neck & C-Spine Common normals: full ROM General: normal visual inspection Chest Common normals: inspection of chest normal Respiratory Common normals: normal respiratory effort, no retractions and no use of accessory muscles Back & Pelvis Thoracic spine/upper back: ROM limited, pain with ROM and paraspinal muscle tenderness Lumbar spine/lower back: ROM limited, pain with ROM, paraspinal muscle tenderness and straight leg raise negative bilaterally Other: no radiculopathy noted on exam no identifiable trigger points Back image (female): 2 1. pain Extremity Common normals: normal to inspection and full ROM Neuro Common normals: oriented x3, CN's II-XII intact bilaterally, moves all extremities, no focal motor deficits, no sensory deficits noted and deep tendon reflexes 2+ bilaterally Sensorium/orientation: alert Motor exam: strength 5/5 throughout and no movement abnormalities noted Psych Common normals: mental status grossly normal, thought process normal, cooperative, affect normal, speech normal and activity/motor behavior normal Speech: normal speech Thought process: normal thought process Results Additional Findings Additional findings: If on a controlled substance or opioids, I have checked an [place] report on this patient and there are no aberrancies noted in the prescribing history.??If on a controlled substance or opioid a drug screen was completed and reviewed within the last year, and if there has not been a drug screen completed we ordered one today to monitor higher risk, state monitored pain medication use. As part of providing excellent, safe, comprehensive care, the following was completed at our patient's visit: 1. A medication reconciliation and review to ensure accurate knowledge of current/active medications, including asking our patients to inform us about any [id number] medications or herbal remedies/nutritional supplements/alternative remedies. 2. A review to specifically ensure our patients have had annual screening for screening for depression, screening for tobacco use, and screening for unhealthy alcohol use. For concerning screenings had a discussion with the patient, provided patient education, and recommended follow-up with primary care provider when appropriate. If patient noted with a risk of falling, they received education on strength, gait, and balance training to prevent future risk of falling. Assessment and Plan Assessment and Plan (1) Thoracic neuritis: (2) Thoracic spondylosis: (3) Muscle spasm: (4) Chronic pain syndrome: (5) Encounter for long-term use of opiate analgesic: Plan right T9 and T10 SNRB under fluoroscopy provided unknown relief because patient has bilateral thoracic pain, today 4/10 constant increasing with stairs bending lifting activity. KENDRA 44% same as prior visit. Patient cannot take NSAIDs, has failed numerous muscle relaxants. at prior visit NS referral to Dr Upton for evaluation, although likely nonsurgical. Patient reports she did not receive a call, their office attempted 3 calls without response. Recently evaluated by orthopedic surgery who recommended weight loss and breast reduction. at prior visit: previously reported pain medication was mildly beneficial and we increased from 55 tabs/month to 60 tablets/month, patient reports little to no relief from hydrocodone-acetaminophen 5-325mg and ibuprofen has worked better in the past. will trial hydrocodone-acetaminophen 7.5-325mg BID PRN moderate to severe pain. discussed with multiple etiologies and failure to respond to opioid therapy if hydrocodone-acetaminophen 7.5-325mg is not beneficial we will not continue opioid therapy. Opioid therapy is not ideal for chronic pain unless it improves pain and functional ability. KENDRA progressively worsening since 10/19, previously 24% now ranges mid 40s. as of 10/19/23 KENDRA continues to remain the same and patient reports no further improvement in pain with increasing to hydrocodone-acetaminophen 7.5mg BID PRN. She stopped baclofen as it was not helpful. I do not see functional improvement, nor do benefits outweigh the risks with chronic opioid therapy to continue. Decrease to [place] 5-325mg BID PRN 1 month, decrease to [place] 5-325mg daily then stop. Patient to see Dr Murphy for a second opinion, I have requested patient trial methocarbamol 500-1000mg TID PRN pain/myofascial pain but she reports failing all previous muscle relaxers. Patient reports good response to prior TPIs, but disagrees that this pain is muscle related. pt has numerous etiologies of pain with thoracic stenosis, thoracic spondylosis, hx of FM and myofascial pain. f/u with Dr Murphy for further evaluation and treatment plan
== END 2023-10-19 12:58 | disposition home or self-care (01) ==
PROVIDERS: Visit Provider Nurse Practitioner
DX: M54.14 Radiculopathy, thoracic region (principal); M47.814 Spondylosis without myelopathy or radiculopathy, thoracic region; M62.838 Other muscle spasm; G89.4 Chronic pain syndrome; Z79.891 Long term (current) use of opiate analgesic
CPT/HCPCS: G0463

== ENCOUNTER 2023-11-01 14:08 | Outpatient (OUT) | payer MEDICARE, MEDICAID, SELFPAY ==
--- NOTE | 2023-11-01 | CONS_ITS ---
CONSULTATION DATE: 11/01/2023 TO: Dr. Gutierrez HISTORY: Patient returns today complaint of 5/10 pain in her upper back area. This is a deep, aching, throbbing pain, increased with activity such as pushing/pulling maneuvers, standing, walking and performing transitioning maneuvers. She feels most comfortable in the semi-recumbent position. She denies any change in bowel and bladder habits, but reports progressively tingling and at times shooting pain in her mid back area. CURRENT MEDICATION: Includes [place] 7.5 mg b.i.d. She reports this medicine has increased her quality of life, level of functioning and, at times, her sleep pattern. There is no evidence of over use of this medication. Her KENDRA on today?s visit is 44%. EXAM: Notable for patient having dysesthesia and hyperesthesia along the distribution of T9 and possibly T10 dermatome, occurring bilaterally, with significant myofascial spasm of the iliocostalis muscle bilaterally as well. There are no appreciable signs consistent with radiculopathy or myelopathy involving the lower extremities. IMPRESSION: Our impression is patient has chronic pain secondary to thoracic neuritis at T9 and possibly T10, occurring bilaterally with myofascial dysfunction and myalgia along the thoracic iliocostalis muscle. RECOMMENDATIONS: I recommend this patient discontinue the [place] secondary to relative ineffectiveness. Will transition her over to oxycodone 5 mg b.i.d. and continue to wean her as she tolerates. I have recommended aquatic therapy. Placed her on Zanaflex 4 mg pills, one-half to one pill b.i.d., and lastly, I have recommended a bilateral T9-T10 transforaminal epidural steroid injection under fluoroscopic guidance. Gone over the details of the procedure with the patient. All her questions answered. She agrees to proceed with the outlined plan. RANCHO
== END 2023-11-01 14:09 | disposition home or self-care (01) ==
PROVIDERS: Visit Provider Anesthesiology Pain Medicine
DX: M54.14 Radiculopathy, thoracic region (principal); M79.18 Myalgia, other site
CPT/HCPCS: G0463

== ENCOUNTER 2023-12-05 09:57 | Day surgery (SDC) | payer MEDICARE, MEDICAID, SELFPAY ==
[2023-12-05 10:01] VITALS: BP 167/104; PULSE 79; TEMP 36.3; O2SAT 95
[2023-12-05] MEDS: DEXAMETHASONE SOD PHOS 10 MG/ML VIAL INJ (10:44)
[2023-12-05] MEDS: BUPIVACAINE HCL 0.25% PF 25 MG/10 ML VIAL INJ (10:44)
[2023-12-05] MEDS: 0.9 % SODIUM CHLORIDE 10 ML SYRINGE - SALINE FLUSH INJ (10:44)
[2023-12-05] MEDS: LIDOCAINE HCL 2% 400 MG/20 ML MDV 5 ML INJ (10:45)
[2023-12-05] MEDS: IOHEXOL 240 MG/ML - 10 ML VIAL INJ (10:45)
[2023-12-05 10:46] VITALS: BP 197/93; BP 199/94; PULSE 78; PULSE 84; O2SAT 97; O2SAT 98
--- NOTE | 2023-12-05 10:46 | W.PM.PROCNOT ---
Date of procedure: 12/05/23 Pre-op diagnosis: Pain due to thoracic radiculopathy Post-op diagnosis: same as pre-op Procedure: Procedure: Bilateral T9-10 transforaminal epidural steroid injection Medications: Bupivacaine 0.25% 2cc, lidocaine 2% 1cc, dexamethasone 10mg The patient was seen and examined in the preoperative holding area.? Informed consent was obtained and placed on the chart.? Patient was brought to the medical procedure unit and placed in the prone position where a timeout was completed verifying the correct patient, procedure site, position, and planned special equipment using sterile aseptic technique.? Under direct fluoroscopic visualization a 25-gauge Quincke tipped spinal needle was advanced at level left T9-10 to the designated neural foramen where contrast dye was injected to show adequate spread.? There was no evidence of vascular or adverse uptake.? Epidural spread was appreciated.? The above-mentioned injectate was then placed in a 1.5 mL aliquot preceded by negative aspiration.? The needle was removed. The same procedure, at the same level, was completed on the opposite side. ? Patient was taken to the postprocedural recovery area and monitored for an appropriate length of time before found suitable for discharge in the accompaniment of a responsible adult. Anesthesia: Local Surgeon: Willian Jensen Pathology: none sent Condition: stable Disposition: no change
== END 2023-12-05 10:50 | disposition home or self-care (01) ==
LOC: SURGOUT 09:58
PROVIDERS: Visit Provider Anesthesiology
DX: M54.14 Radiculopathy, thoracic region (principal)
CPT/HCPCS: 64479; J0665; J1100; Q9966

== ENCOUNTER 2023-12-21 12:45 | Outpatient (OUT) | payer MEDICARE, MEDICAID, SELFPAY ==
--- NOTE | 2023-12-21 13:58 | P.CN_ITS ---
Consult Note: HPI Data of Consult Patient: known to practice within the last 3 years Requesting Physician: Brielle Dominguez NP Primary Care Provider: Non-Staff Physician, Consult Narrative Reason for consult: f/u Narrative: Lupe Pickard a pleasant 47 year old female presents for evaluation and management of mid back pain and low back pain, today rating pain 4/10 aching pressure. Previously reported benefit from left and right T7,8 T9,10 RFAs for 1 month before returning to clinic for pain in right thoracic spine. Prior thoracic MRI which shows mild central canal narrowing and foraminal narrowing at multiple levels with facet arthropathy. Patient previously evaluated by orthopedic surgery who recommended weight loss and a breast reduction. I had referred pt to Dr Upton for evaluation and per their office they contacted the patient 3x. Patient underwent right T9-10 T10-11 nerve root injection with unknown improvement, 1st day notable difference however pain is bilateral. Patient cannot take NSAIDs as they cause edema, reports failing numerous muscle relaxants most recently baclofen. No improvement from escalation to [place] 7.5mg BID PRN from prior [place] 5-325mg BID PRN or from oxycodone 5mg BID PRN which she has weaned herself off of. Has failed tramadol in the past. KENDRA 44%, same as prior visit. Patient finding benefit to marijuana at this time, noticing she is not reliant on this medication as she admitted to experiencing with the opioid medications she had a timer on her phone of when she could take it again and wo uld not miss, she now can miss her CBD/marijuana doses. Dr Murphy evaluated patient most recently and recommended bilateral T9-[address] Jensen which is providing 80% improvement ongoing per patient. Patient reporting lumbar RFAs from 2020 have worn off and would like to discuss working up axial low back pain. cc:: CC: Brielle Dominguez NP Review of Systems ROS Status of ROS 10 or more systems reviewed and unremark able except as noted in history and below Musculoskeletal Reports: back pain PFSH PFSH Medical History Osteoarthritis ?M19.90 - Unspecified osteoarthritis, unspecified site (ICD-10) Fibromyalgia ?M79.7 - Fibromyalgia (ICD-10) IBS (irritable bowel syndrome) ?K58.9 - Irritable bowel syndrome without diarrhea (ICD-10) Constipation ?K59.00 - Constipation, unspecified (ICD-10) Surgical History History of hysterectomy ?Z90.710 - Acquired absence of both cervix and uterus (ICD-10) History of thyroidectomy ?E89.0 - Postprocedural hypothyroidism (ICD-10) Meds Home Medications and Allergies Home Medications ?Medication ?Instructions ?Recorded ?Confirmed ?Type cholecalciferol (vitamin D3) 50 50 mcg PO DAILY 12/30/22 12/05/23 History mcg (2,000 unit) capsule (Vitamin D3) levothyroxine 112 mcg tablet 112 mcg PO DAILY 12/30/22 12/05/23 History liothyronine 5 mcg tablet 10 mcg PO DAILY 12/30/22 12/05/23 History lubiprostone 24 mcg capsule 24 mcg PO DAILY 12/30/22 12/05/23 History magnesium oxide 400 mg (241.3 mg 400 mg PO DAILY 12/30/22 12/05/23 History magnesium) tablet melatonin 10 mg tablet 10 mg PO DAILY 12/30/22 12/05/23 History multivitamin (Daily Multi-Vitamin 1 tab PO DAILY 12/30/22 12/05/23 History tablet) diltiazem HCl 180 mg 240 mg PO Q24H 02/01/23 12/05/23 History capsule,extended release 24 hr Lactobacillus acidophilus 10 100 mmu cells PO DAILY 08/03/23 12/05/23 History billion cell capsule (Probiotic) escitalopram oxalate 20 mg tablet 20 mg PO DAILY 08/03/23 12/05/23 History (Lexapro) ferrous sulfate 325 mg (65 mg 325 mg PO DAILY 08/03/23 12/05/23 History iron) tablet (Feosol) propranolol 20 mg tablet 20 mg PO BID 08/03/23 12/05/23 History turmeric 400 mg capsule mg PO 08/03/23 History hydrocodone 7.5 mg-acetaminophen 1 tab PO BID PRN pain #60 tabs 08/24/23 12/05/23 Rx 325 mg tablet methocarbamol 1,000 mg tablet 1,000 mg PO TID #90 tabs 10/19/23 12/05/23 Rx oxycodone 5 mg tablet 5 mg PO BID PRN pain #50 tabs 11/01/23 12/05/23 Rx oxycodone 5 mg tablet 5 mg PO BID PRN pain #50 tabs 11/01/23 12/05/23 Rx Allergies Allergy/AdvReac Type Severity Reaction Status Date / Time No Known Drug Allergies Allergy Verified 12/05/23 10:06 Exam Constitutional Documenting provider has reviewed patient's vital signs: yes Common normals: no apparent distress, oriented x3, healthy appearing, alert and well nourished General appearance: cooperative Nutritional appearance: overweight HENMT Common normals: normocephalic, hearing grossly normal bilaterally and moist oral mucous membranes Head and scalp: normocephalic Eye Common normals: PERRL Pupil: PERRL Neck & C-Spine Common normals: full ROM General: normal visual inspection Chest Common normals: inspection of chest normal Respiratory Common normals: normal respiratory effort, no retractions and no use of accessory muscles Back & Pelvis Thoracic spine/upper back: ROM limited, pain with ROM and paraspinal muscle tenderness Lumbar spine/lower back: ROM limited, pain with ROM, paraspinal muscle tenderness and straight leg raise negative bilaterally Other: no radiculopathy noted on exam no identifiable trigger points bilateral L3-S1 facet loading positive Extremity Common normals: normal to inspection and full ROM Neuro Common normals: oriented x3, CN's II-XII intact bilaterally, moves all extremities, no focal motor deficits, no sensory deficits noted and deep tendon reflexes 2+ bilaterally Sensorium/orientation: alert Motor exam: strength 5/5 throughout and no movement abnormalities noted Psych Common normals: mental status grossly normal, thought process normal, cooperative, affect normal, speech normal and activity/motor behavior normal Speech: normal speech Thought process: normal thought process Results Additional Findings Additional findings: If on a controlled substance or opioids, I have checked an [place] report on this patient and there are no aberrancies noted in the prescribing history.??If on a controlled substance or opioid a drug screen was completed and reviewed within the last year, and if there has not been a drug screen completed we ordered one today to monitor higher risk, state monitored pain medication use. As part of providing excellent, safe, comprehensive care, the following was completed at our patient's visit: 1. A medication reconciliation and review to ensure accurate knowledge of current/active medications, including asking our patients to inform us about any [id number] medications or herbal remedies/nutritional supplements/alternative remedies. 2. A review to specifically ensure our patients have had annual screening for screening for depression, screening for tobacco use, and screening for unhealthy alcohol use. For concerning screenings had a discussion with the patient, provided patient education, and recommended follow-up with primary care provider when appropriate. If patient noted with a risk of falling, they received education on strength, gait, and balance training to prevent future risk of falling. Assessment and Plan Assessment and Plan (1) Lumbar spondylosis: (2) Chronic pain syndrome: (3) Thoracic neuritis: (4) Thoracic spondylosis: Plan bilateral L3-4 L4-5 facet medial branch block x2 working towards RFA to be completed under fluoroscopy with Dr Jensen per pt request could consider SCS trial for chronic back pain in the future, handout provided f/u after each injection
== END 2023-12-21 12:46 | disposition home or self-care (01) ==
LOC: PM 12:46
PROVIDERS: Visit Provider Nurse Practitioner
DX: M47.816 Spondylosis without myelopathy or radiculopathy, lumbar region (principal); G89.4 Chronic pain syndrome; M54.14 Radiculopathy, thoracic region; M47.814 Spondylosis without myelopathy or radiculopathy, thoracic region
CPT/HCPCS: G0463

== ENCOUNTER 2024-01-02 10:58 | Day surgery (SDC) | payer MEDICARE, MEDICAID, SELFPAY ==
--- OUTSIDE RECORDS SUMMARY | 2024-01-02 11:14 | XMS_ITS | CCD ---
Author Organization [facility] Care Team Providers Care Tare Weigher Name Role Phone Donya Billings Primary Care Provider Oscar Reed Unavailable DO Donya Billings Primary [...] Attending Unavailable ERNIE ROPER Referring Unavailable ANNALEE Champion, DR ZHANE Ashraf Admitting Unavailable ANNALEE ., DR ZHANE Ashraf Attending Unavailable AWA, DR DONYA Ashraf Primary Care Unavailable ANNALEE Champion, DR ZHANE Ashraf Consulting Unavailable HERIBERTO GONSALES Consulting Unavailable ANNALEE Champion, DR ZHANE Ashraf Admitting Unavailable ANNALEE ., DR ZHANE Ashraf Attending Unavailable AWA, DR DONYA Ashraf Primary Care Unavailable BHAVNA COPELAND Consulting Unavailable MANTILLA ., DR ZHANE Ashraf Admitting Unavailable MANTILLA ., DR ZHANE Ashraf Attending Unavailable AWA, DR DONYA Ashraf Primary Care Unavailable MANTILLA ., DR ZHANE Ashraf Consulting Unavailable TERRISHEYLA Chase Consulting Unavailable MANTILLA ., DR ZHANE Ashraf [...] BHAVNA Consulting Unavailable Awa, Dr. Donya Wray Primary [facility] cail[facility] Benjamin, Dr. Koehler Attending Unavaila ble Awa, Dr. Donya Wray [facility] Gaurav Benjamin, Dr. Koehler Attending Unavaila ble Lavonne, Dr. Koehler Attending Unavaila ble Awa, Dr. Donya Wray [facility] Gaurav Benjamin, Dr. Koehler Referring Unavaila ble Lavonne, Dr. Koehler Referring Unavaila ble Awa, Dr. Donya Wray [facility] Benjamin, Dr. Koehler Attending Unavaila ble Awa, Dr. Donya Wray [facility] Gaurav Benjamin, Dr. Koehler Referring Unavaila ble Awa, Dr. Donya Wray [facility] Gaurav Benjamin, Dr. Koehler Attending Unavaila ble Awa, Dr. Donya Wray [facility] Gaurav Benjamin, Dr. Koehler Attending Unavaila ble Lavonne, Dr. Koehler Referring Unavaila ble AwaDO Donya Primary Care Provider DO Yogi Mcgraw Emergency Provider Gaurav simeon NO FAMILY, PHYSICIAN Primary Care Provider Unava BHAVIN Dsouza Emergency Provider [phone] MD Amanda Montiel Attending Provider DO Diony Singh II Primary Care Provider DO Mariya Kumari Emergency Provider MD Franklyn Madera Attending Provider MD Phillip Benjamin Other Provider [phone] Beny Alvarez Unavailable [phone] DO Yogi Mcgraw Emergency Provider Unavai MD Kenyetta Tong Attending Provider [phone] DO Diony Singh II Other Provider MARCELLUS Mcintosh Attending Provider NO [facility], PHYSICIAN Primary Care Provider Unava MD Beny Cheng Attending Provider MAXIMILIANO Aguirre Other Provider Awa BARAKAT Donya Andriy Unavailable [facility], [facility] Referring Unavaila ble [place], [facility] Attending Unavaila ble [place], [facility] Referring Unavaila ble [place], [facility] Attending Unavaila ble James, Roula Unavailable DO Diony Singh II Primary Care Provider DO Jacqui Samayoa Emergency Provider [phone] DO Diony Singh II Primary Care Provider [phone] DO Jacqui Samayoa Emergency Provider DO Diony Singh II Attending Provider MARCELLUS Dominguez Attending Provider MAXIMILIANO Lozoya Emergency Provider Josué Napier Attending Unavailable Josué Napier Admitting Unavailable NO FAMILY, PHYSICIAN Primary Care Unavailable Cromley II, Diony J Primary Care Unavailable Mariya Kumari Attending Unavailable Mariya Kumari Admitting Unavailable Cromley II, Diony J Primary Care Unavailable Cromley II, Diony J Attending Unavailable Cromley II, Diony J Admitting Unavailable Cromley II, Diony J Primary Care Unavailable Brielle Dominguez Attending Unavailable Brielle Dominguez Admitting Unavailable Amanda Montiel Admitting Unavailable NO FAMILY, PHYSICIAN Primary Care Unavailable Amanda Montiel Attending Unavailable Cromley II, Diony J Primary Care Unavailable Franklyn Madera Attending Unavailable Franklyn Madera Admitting Unavailable Phillip Benjamin Consulting Unavailable Cromley II, Diony J Primary Care Unavailable Kenyetta Dove Admitting Unavailable Kenyetta Dove Attending Unavailable Cromley II, Diony J Primary Care Unavailable Cromley II, Diony J Consulting Unavailable Radha Mcintosh Attending Unavailable Radha Mcintosh Admitting Unavailable Cromley II, Diony J Primary Care Unavailable Becky Aguirre Consulting Unavail able Beny Alvarez Attending UnavailBeny Mahajan Admitting UnavailYogi Seo Attending Unavailable Cromley II, Diony J Primary Care Unavailable Yogi Mcgraw Admitting Unavailable Cromley II, Diony Hugo Primary Care Unavailable Jacqui Samayoa Attending Unavailable Jacqui Samayoa Admitting Unavailable Cromley II, Diony J Primary Care Unavailable Javad Lozoya Admitting Unavailable Javad Lozoya Attending Unavailable Yogi Mcgraw Admitting Unavailable Yogi Mcgraw Attending Unavailable Donya Billings Primary Care Unavailable Cromley II, DO Diony Arias Primary Care Provider MD Franklyn MADERA Attending Unavailable MD Franklyn MADERA Admitting Unavailable NONE, XXXX Referring Unavailable NONE, XXXX Referring Unavailable MARLYN Schmidt Admitting Reyna vailable MARLYN Schmidt Attending Reyna MD Franklyn Fregoso Attending Unavailable MD Franklyn MADERA Admitting Unavailable StephanieeyDO Diony Referring Unavailable GILBERTO AGUIRRE Attending UnaZeinab Suazo Attending Unavailable MD Franklyn MADERA Attending Unavailable MD Franklyn MADERA Admitting Unavailable NONE, XXXX Referring Unavailable NONE, XXXX Referring Unavailable Christofferson, MILL HAND Roula L Admitting Reyna vailable Christofferson, MILL HAND Roula L Attending Reyna vailable Donya BILLINGS Attending Unavailable Cromley, DO Diony Arias Attending Unavailable Cromley, DO Diony Arias Attending Unavailable Cromley, DO Diony Arias Attending Unavailable Cromley, DO Diony Arias Attending Unavailable Cromley, DO Diony Arias Attending Unavailable Cromley, DO Diony Arias Attending Unavailable STEVEN, MARLYN Kennedy Attending UnavailDonya Mcclendon Referring Unavailable ALLYSSA TREJO Attending Unavailable Christofferson, MILL HAND Roula L Attending Reyna vailable Christofferson, MILL HAND Roula L Admitting Reyna vailable Christofferson, MILL HAND Roula L Referring Reyna vailable Cromley, DO Diony Arias Attending Unavailable Cromley, DO Diony Arias Attending Unavailable Cromley, DO Diony Arias Attending Unavailable Christofferson, MILL HAND Roula L Admitting Reyna vailable Christofferson, MILL HAND Roula L Attending Reyna vailable Christofferson, MILL HAND Roula L Admitting Reyna vailable Christofferson, MILL HAND Roula L Attending Reyna vailable Christiano Solis Attending Unavailable Samantha, DO Diony Arias Referring Unavailable Kilo Williamson Attending Unavailable NONE, XXXX Referring Unavailable Christofferson, MILL HAND Roula L Admitting Reyna vailable Christofferson, MILL HAND Roula L Attending Reyna vailable Camila PELAYO, Willian Lou Attending Unavailable Camila PELAYO, Willian Lou Attending Unavailable Allergies Allergy Classification Reported Allergen(s) Allergy Type Date of Onset Reaction(s) Facility (1 source) Latex; Translations: [Latex] Propensity to adverse reactions (disorder) 7 [facility] Repository (1 source) venlafaxine; Translations: [Effexor] Drug Allergy [facility] Repository Medications Current Medications Medication Drug Class(es) Dates Sig (Normalized) Sig (Original) acetaminophen 500 mg oral tablet (16 sources) Start: 09-20-2022 take 1000 mg by mouth twice daily Acetaminophen Active 1000 MG PO Twice daily September 20, 2022 12:00am Start: 09-20-2022 Acetaminophen (Tylenol Ex Str Rapid Release) 500 mg Tablet Active 1000 MG PO Twice daily September 20, 2022 12:00am Tylenol bid Acti ve acetaminophen 325 mg / HYDROcodone bitartrate 5 mg oral tablet (10 sources) Opioid Agonist Start: 03-29-2023 take 1 tablet by mouth twice daily Hydrocodone-Acetaminophen Active 1 TAB PO Twice daily March 29, 2023 12:00am Huger Active Comment on above: TAKE 1 TABLET BY CHRISTOPHER 2 TIMES A DAY NEEDED FOR PAIN [id number] 200 actuat albuterol 0.09 mg/actuat metered dose inhaler (1 source) beta2-Adrenergic Agonist Start: 04-28-20 take 2 puff(s) by inhalation every four hours as needed Albuterol Sulfate HFA 108 (90 Base) MCG/ACT 2 puffs as needed Inhalation every 4 hrs Mar, Active amoxicillin 875 mg oral tablet (1 source) Penicillin-class Antibacterial Start: 07-08-19 24 take 1 tablet by mouth every twelve hours Amoxicillin 875 MG 1 tablet Orally Twice a day for 10 days Jun, Active amoxicillin 875 mg / clavulanate 125 mg oral tablet (1 source) Penicillin-class Antibacterial Start: 12-05-19 24 take 1 tablet by mouth twice daily Amoxicillin-Pot Clavulanate Active 1 TAB PO Twice daily 18 03December 05, 2023 12:00am Aspir-81 (4 sources) Aspir-81 Active benzonatate 100 mg oral capsule (1 source) Non-narcotic Antitussive Start: 04-28-20 22 take 1 capsule by mouth every eight [...] PO Twice daily July 18, 2018 1:00am 24 hr dilTIAZem hydrochloride 240 mg extended release oral capsule (11 sources) Calcium Channel Shorty Start: 03-29-2023 take 240 mg by mouth once daily Diltiazem Hcl Active 240 MG PO Daily March 29, 2023 12:00am dilTIAZem HCl 24 0mg Active Comment on above: Take 1 capsule by mo [facility] every afternoon. fluconazole 100 mg oral tablet (4 sources) Azole Antifungal Start: 3 take 1 tablet by mouth once daily fluconazole (DIFLUCAN) 100 MG tablet Take 100 mg by mouth daily. for 10 days 0 08/10/2022 Active guaiFENesin 600 mg oral tablet (1 source) Start: 4 take 600 mg by mouth twice daily Guaifenesin Active 600 MG PO Twice daily December 05, 2023 12:00am linaclotide 0.145 mg oral capsule (8 sources) Guanylate Cyclase-C Agonist Start: 3 Linzess 145 MCG 1 capsule at least [...] Start: 11-26-2021 take 1 tablet by christopher twice daily Liothyronine Sodium 5 MCG Oral Tablet take 1 tablet by mouth twice a day Quantity: 0 Refills: 0 Ordered: 14-Apr-2022 DO Start : 26-Nov-2021 Active take 1 tablet by christopher every twenty-four hours Liothyronine Sodium 50 MCG 1 tablet on an empty stomach Orally Once a day Active take 1 tablet by christopher th once daily liothyronine (CYTOMEL) 5 mcg tablet Take 5 mcg by mouth once daily. 0 Active take 1 tablet by christopher every twenty-four hours Liothyronine Sodium 50 MCG 1 tablet on an empty stomach Orally Once a day Active Comment on above: Take 5 mcg by mouth once daily. lubiprostone 0.008 mg oral capsule (20 sources) Chloride Channel Activator Start: take 1 [...] Start: 09-01-2022 take 1 capsule by mo uth twice daily at mealtime Lubiprostone 24 MCG 1 capsule with food and water Orally Twice a day for 30 days Aug, Active Start: 09-01-2022 take 1 capsule by mo uth twice daily at mealtime Lubiprostone 24 MCG 1 capsule with food and water Orally Twice a day for 30 days Aug, Active take 1 capsule by mo uth once daily at mealtime Amitiza 24 MCG 1 capsule with food and water Orally once a day Active Comment on above: Take 24 mcg by mouth twice daily with meals. Magnesium (17 sources) Start: 07-18-2018 take 400 mg by [...] 2018 12:00am melatonin 10 mg oral tablet (20 sources) Start: 07-18-2018 take 10 mg by mouth once daily at bedtime Melatonin Active 10 MG PO Daily at bedtime July 18, 2018 1:00am Melatonin 10 MG as directed Orally Active Comment on above: Take by mouth. methylPREDNISolone 4 mg oral tablet (1 source) Corticosteroid Start: take 1 tablet by mouth once Methylprednisolone (Medrol (Jeffery)) 4 mg tablets,dose pack Active 0 PO per package directions December 05, 2023 12:00am PO PER PKG DIR for 6 days Multi For Her (8 sources) Multi For Her as directed Orally Active Multiple Vitamin (Multi Vitamin Daily) TABS (4 sources) Multiple Vitamin (Multi Vitamin Daily) TABS Take by mouth. 0 Active Multivitamin (Multiple Vitamins) Tablet (17 sources) Start: take 1 tablet by mouth once daily Multivitamin (Multiple Vitamins) Tablet Active 1 TAB PO Daily July 18, 2018 1:00am Start: 07-18-2018 take 1 tablet by christopher th once daily Multivitamin (Multiple Vitamins) Tablet Active 1 TAB PO Daily July 18, 2018 12:00am polyethylene glycol 3350 84355 mg powder for oral solution (5 sources) Osmotic Laxative Start: 09-01-2022 take 17 g by mouth once daily Polyethylene Glycol 3350 17 GM/SCOOP 17gm Orally Once a day for 30 days please dispense largest quantity Aug, Active probiotic (1 source) probiotic Active propranolol hydrochloride 20 mg oral tablet (7 sources) beta-Adrenergic Shorty Start: 07-22-2023 take 20 mg by mouth twice daily Propranolol Active 20 MG PO Twice daily July 22, 2023 1:00am Start: 05-03-2023 take 1 tablet by christopher [...] (Normalized) Sig (Original) acetaminophen 325 mg / oxyCODONE hydrochloride 5 mg oral tablet (3 sources) Opioid Agonist Start: 09-20-2023 End: 12-05-2023 take 1 tablet by mouth three times daily Oxycodone-Acetamino phen (Percocet) 5-325 mg tablet Discontinued 1 TAB PO Three times daily 7 2 September 20, 2023 December 05, 2023 11:42am ALPRAZolam 0.5 mg oral tablet (20 sources) [...] needed. amitriptyline hydrochloride 25 mg oral tablet (20 sources) Tricyclic Antidepressant Start: 04-11-20 18 End: 09-21-19 23 take 75 mg by mouth at bedtime Amitriptyline Discontinued 75 MG PO Bedtime April 11, 2018 1:00am September 20, 2022 7:23pm take 1 tablet by christopher th once [...] bedtime. ascorbic acid 1000 mg oral tablet (17 sources) Vitamin C Start: 9 End: 3 take 1 tablet by mouth once daily in the morning Ascorbic Acid (Vitamin C) (Vitamin C) 1,000 mg Tablet Discontinued 1000 MG PO Every morning July 18, 2018 1:00am September 20, 2022 7:23pm aspirin 81 mg chewable tablet (6 sources) Platelet Aggregation Inhibitor, Nonsteroidal Anti-inflammatory Drug Start: 3 End: 4 take 81 mg by mouth once daily Aspirin Discontinued 81 MG PO Daily March 29, 2023 12:00am December 05, 2023 11:41am B Complex-Folic Acid 0.4 mg tab (1 source) B Complex-Folic Acid 0.4 mg tab Take by mouth. 0 Active Comment on above: Take by mouth. baclofen 10 mg oral tablet (20 sources) gamma-Aminobutyric Acid-ergic Agonist Start: 3 End: take 10 mg by mouth once daily Baclofen Discontinued 10 MG PO Daily September 20, 2022 12:00am July 22, 2023 11:38am Start: 09-23-2021 take 1 tablet by christopher [...] Baclofen Active biotin 10 mg oral capsule (17 sources) Start: 07-18-2018 End: 09-20-2022 take 80183 ug by mouth once daily Biotin Discontinued 31896 MCG PO Daily July 18, 2018 1:00am September 20, 2022 7:23pm 24 hr buPROPion hydrochloride 300 mg extended release oral tablet (18 sources) Aminoketone Start: 10-21-2017 End: 09-20-2022 take 300 mg by mouth once daily in the morning Bupropion Hcl Discontinued 300 MG PO Every morning October 21, 2017 12:00am September 20, 2022 7:23pm Comment on above: Take 300 mg by [...] + D3) 500 mg(1,250mg) -200 unit tablet (12 sources) Start: 07-18-2018 End: 09-20-2022 take 1 [...] daily. 0 08/13/2022 Active Start: 07-18-2018 take 86023 [IU] by m outh every week Cholecalciferol (Vitamin D3) Active 78571 UNIT PO every week July 18, 2018 1:00am take 1 capsule by mo [facility] once daily Vitamin D3 1.25 MG (39675 UT) Oral Capsule TAKE 1 CAPSULE Daily Quantity: 0 Refills: 0 Ordered: 28-Jul-2022 DO Active Comment on above: Take 1 capsule by mo [facility] every afternoon. chondroitin sulfates 400 mg / glucosamine hydrochloride 500 mg oral tablet (1 source) take 1 tablet by mouth three times daily Glucosamine-Chondroi tin 500-400 mg tablet Take 1 tablet by mouth three times daily. 0 Active Comment on above: Take 1 tablet by christopher three times daily. cloNIDine hydrochloride 0.1 mg oral tablet (12 sources) Central alpha-2 Adrenergic Agonist Start: 3 End: 3 take 0.1 mg by mouth once daily Clonidine Hcl Discontinued 0.1 MG PO Daily December 20, 2022 4:03pm March 29, 2023 8:37am CYANOCOBALAMIN/COBAMAM BREANNA (B12 SUBLINGUAL) (1 source) CYANOCOBALAMIN/C OBAM AMIDE (B12 SUBLINGUAL) Dissolve under the tongue. 0 Active Comment on above: Dissolve under the t ongue. doxycycline hyclate 100 mg oral capsule (4 sources) Tetracycline-class Drug Start: 3 take 1 capsule by mouth every twelve hours Doxycycline Hyclate 100 MG 1 capsule Orally Twice a day for 10 day(s) September, Not-Taking/PRN escitalopram 10 mg oral tablet (10 sources) Serotonin Reuptake Inhibitor Start: 3 take 1 tablet by mouth once escitalopram oxalate (LEXAPRO) 10 mg tablet Take 1 tablet by mouth every afternoon. 0 05/02/2023 Active Start: 03-29-2023 take 2 tablets by mo [facility] once daily Escitalopram Oxalate (Lexapro) 5 mg Tablet Active 10 MG PO Daily March 29, 2023 12:00am Start: 03-29-2023 take 1 tablet by christopher th once daily Escitalopram Oxalate (Lexapro) 5 mg Tablet Active 5 MG PO Daily March 29, 2023 12:00am Comment on above: Take 1 tablet by christopher th every afternoon. estrogens, conjugated (correction) 0.3 mg / medroxyPROGESTERone acetate 1.5 mg oral tablet (1 source) Progestin, Estrogen take 1 tablet by mouth once daily Conj Estrog-Medroxyproge st Tyrel 0.3-1.5 mg per tablet Take 1 tablet by mouth once daily. 0 Active Comment on above: Take 1 tablet by christopher th once daily. FE FUMARATE/CA CARB/VITAMIN D3 ([id number]-[id number]-PEURPGB FUMARATE ORAL) (1 source) FE FUMARATE/CA CARB/VITAMIN D3 ([id number]-[id number]-ILMO OUS FUMARATE ORAL) Take by mouth. 0 Active Comment on above: Take by mouth. FOLIC ACID, BULK, MISC (1 source) FOLIC ACID, BULK , MISC ibuprofen 800 mg oral tablet (17 sources) Nonsteroidal Anti-inflammatory Drug Start: 019 End: 023 take 800 mg by mouth every eight hours Ibuprofen Discontinued 800 MG PO Q8H December 15, 2018 12:00am September 20, 2022 7:23pm lactobacillus acidophilus [id number] unt / pectin 10 mg oral capsule (1 source) acidophilus-pect in, citrus (ACIDOPHILUS PROBIOTIC) 100 million-10 cell-mg cap Take by mouth. 0 Active Comment on above: Take by mouth. levothyroxine sodium 0.112 mg oral tablet (20 sources) l-Thyroxine Start: take 1 tablet by mouth once daily in the morning levothyroxine (SYNTHROID) 112 mcg tablet Take 1 tablet (112 mcg) by mouth daily in the morning on an empty stomach 0 04/30/2023 Active Start: 11-26-2021 take 1 tablet by christopher th once daily in the morning Synthroid [...] Days Active take 1 tablet by christopher th once daily in the morning Synthroid [...] DO Active meloxicam 15 mg oral tablet (17 sources) Nonsteroidal Anti-inflammatory Drug Start: 9 End: 9 take 15 mg by mouth once daily in the morning Meloxicam Discontinued 15 MG PO Every morning July 18, 2018 1:00am August 01, 2018 3:16pm metaxalone 800 mg oral tablet (1 source) [...] Active take 1 tablet by christopher th once daily Metoprolol Succinate ER 50 MG Oral Tablet Extended Release 24 Hour TAKE 1 TABLET BY MOUTH EVERY DAY Quantity: 90 Refills: 3 Ordered: 08-Dec-2022 Lavonne PELAYO, Junif Active increase metroNIDAZOLE 0.01 mg/mg topical gel [...] Comment on above: Take 1 capsule by [facility] once daily. mupirocin 0.02 mg/mg topical ointment (17 sources) RNA Synthetase Inhibitor Antibacterial Start: 12-03-19 End: 12-16-19 Mupirocin Discontinued 1 APPLIC TOPICAL Twice daily 15 December 02, 2018 12:00am December 15, 2018 5:08pm naproxen 500 mg oral tablet (4 sources) Nonsteroidal Anti-inflammatory Drug Start: 09-20-19 End: 12-05-19 24 take 1 tablet by mouth twice daily Naproxen (Naprosyn) 500 mg tablet Discontinued 500 MG PO Twice daily October 04, 2023 6:31am December 05, 2023 11:42am omeprazole 20 mg delayed release oral capsule (17 sources) Proton Pump Inhibitor Start: 04-11-20 18 End: 08-02-19 take 1 tablet by mouth once daily Omeprazole Discontinued 1 TAB PO Daily April 11, 2018 1:00am August 01, 2018 3:16pm oseltamivir 75 mg oral capsule (5 sources) Neuraminidase Inhibitor Start: 07-22-19 24 End: 09-20-19 24 take 1 capsule by mouth every twelve hours Oseltamivir (Tamiflu) 75 mg capsule Discontinued 75 MG PO Q12H 10 July 22, 2023 1:00am September 20, 2023 11:31am plecanatide 3 mg oral tablet (7 sources) Start: 05-12-20 take 1 tablet by mouth every twenty-four hours Trulance 3 MG 1 tablet Orally Once a day for 90 days Apr, Not-Taking/PRN predniSONE 10 mg oral tablet (3 sources) Start: 03-27-20 prednisone 10 mg 5 tablets for 2 [...] oral capsule (20 sources) Benzodiazepine Start: 05-25-20 take 1 capsule by mouth once daily [...] 20, 2022 7:24pm take 1 capsule by [facility] every twenty-four hours Restoril 15 MG 1 [...] on above: TAKE 1 CAPSULE BY [facility] ONCE A DAY (AT BEDTIME) NEEDED FOR SLEEP 30 DAY SUPPLY thyroid (correction) 60 mg oral tablet (1 source) thyroid, [...] Translations: [Other premature beats] Onset: 3 Chronic Cardiac dysrhythmias (20 sources) Palpitations; Translations: [Palpitations] Onset: 3 12-20-2022 Episodic Chronic obstructive pulmonary disease and bronchiectasis (1 source) Bronchitis, not specified as acute or chronic; Translations: [Bronchitis, not specified as acute or chronic] 12-05-2023 Episodic Complications of surgical procedures or medical care (1 source) Postprocedural hypothyroidism; Translations: [Postprocedural hypothyroidism] Onset: 3 Chronic Complications of surgical procedures or medical care (17 sources) Wound dehiscence; Translations: [Disruption of external operation (surgical) wound, not elsewhere classified, initial encounter] 12-02-2018 Episodic Conditions associated with dizziness or vertigo (12 sources) Lightheadedness; Translations: [Dizziness and giddiness] 12-20-2022 Episodic Deficiency and other anemia (1 source) Anemia, unspecified; Translations: [Anemia, unspecified] Onset: 4 Episodic Essential hypertension (20 sources) Hypertensive disorder; Translations: [Essential (primary) hypertension] 12-28-2022 Chronic Fever of unknown origin (1 source) Fever, unspecified; Translations: [Fever, unspecified] Onset: 4 Episodic Gastritis and duodenitis (10 sources) Gastritis; Translations: [Unspecified chronic gastritis without bleeding] 10-03-2023 Chronic Gastrointestinal hemorrhage (1 source) Melena Episodic Headache; including migraine (11 sources) Headache; Translations: [Headache] 12-30-2022 Episodic Headache; including migraine (1 source) Headache; including migraine; Translations: [Headache, unspecified] Onset: 3 Hypertension with complications and secondary hypertension (13 sources) Hypertensive urgency ; Translations: [Hypertensive urgency] 12-30-2022 Chronic Immunizations and screening for infectious disease (1 source) Other specified abnormal immunological findings in serum; Translations: [Positive WILL (antinuclear antibody)] Onset: 3 Episodic Influenza (5 sources) Influenza; Translations: [Influenza due to unidentified influenza virus with other respiratory manifestations] 07-22-2023 Episodic Mood disorders (2 sources) Depressive disorder; Translations: [Depression] 01-18-2014 Chronic Nervous system congenital anomalies (7 sources) Congenital anomaly of optic nerve; 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, spinal cord, 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 Nonmalignant breast conditions (10 sources) Large breast; Translations: [Hypertrophy of breast] 10-03-2023 Episodic Nonspecific chest pain (20 sources) Chest pain; Translations: [Chest pain, unspecified] Onset: 11-05-2022 Episodic Nutritional deficiencies (3 sources) Vitamin D deficiency; Translations: [Unspecified vitamin D deficiency] Chronic Open wounds of extremities (17 sources) Cat bite - wound; Translations: [Open bite of unspecified finger without damage to nail, initial encounter] 12-02-2018 Episodic Osteoarthritis (20 sources) Arthritis; Translations: [Osteoarthritis of hip] 01-18-2014 Chronic Other connective tissue disease (2 sources) Fibromyalgia; Translations: [Fibromyalgia] 01-18-2014 Episodic Other connective tissue disease (7 sources) H/O: arthritis; Translations: [Personal history of arthritis] Episodic Other connective tissue disease (7 sources) H/O: musculoskeletal disease; Translations: [Personal history of other musculoskeletal disorders] Episodic Other connective tissue disease (9 sources) Pain in calf; Translations: [Pain in unspecified lower leg] 01-24-2023 Episodic Other connective tissue disease (2 sources) Disorder of rotator cuff; Translations: [Unspecified rotator cuff tear or rupture of right shoulder, not specified as traumatic] 10-03-2023 Episodic Other connective tissue disease (2 sources) Unspecified rotator cuff tear or rupture of right shoulder, not specified as traumatic; Translations: [Disorders of bursae and tendons in shoulder region, unspecified] 10-03-2023 Episodic Other eye disorders (7 sources) Hypertropia of right eye; Translations: [Hypertropia] Episodic Other eye disorders (9 sources) Pain in eye; Translations: [Ocular pain, unspecified eye] 01-24-2023 Episodic Other gastrointestinal disorders (2 sources) Irritable bowel syndrome; Translations: [Irritable bowel syndrome without diarrhea] 01-18-2014 Chronic Other gastrointestinal disorders (9 sources) Irritable bowel syndrome characterized by constipation; Translations: [Irritable bowel syndrome with constipation] 10-03-2023 Chronic Other gastrointestinal disorders (2 sources) Irritable bowel syndrome with constipation Chronic Other gastrointestinal disorders (8 sources) Constipation - functional; Translations: [Other constipation] Episodic Other gastrointestinal disorders (8 sources) Swollen abdomen; Translations: [Abdominal distension (gaseous)] Episodic Other gastrointestinal disorders (7 sources) History of gastritis; Translations: [Personal history of other diseases of digestive system] Episodic Other gastrointestinal disorders (6 sources) Constipation; Translations: [Constipation, unspecified] 10-03-2023 Episodic Other gastrointestinal disorders (1 source) Abdominal distension (gaseous) Episodic Other gastrointestinal disorders (1 source) Constipation, unspecified Episodic Other gastrointestinal disorders (2 sources) Abdominal bloating; Translations: [Abdominal distension (gaseous)] 10-03-2023 Episodic Other lower respiratory disease (14 sources) Dyspnea; Translations: [Shortness of breath] 01-24-2023 Episodic Other lower respiratory disease (1 source) Shortness of breath; Translations: [Shortness of breath] Onset: 4 Episodic Other nervous system disorders (7 sources) Benign intracranial hypertension; Translations: [Benign intracranial hypertension] Chronic Other nervous system disorders (1 source) Other chronic pain; Translations: [OTHER CHRONIC PAIN] Onset: 2 Chronic Other non-traumatic joint disorders (17 sources) Shoulder pain; Translations: [Pain in unspecified shoulder] 11-19-2019 Episodic Other non-traumatic joint disorders (3 sources) Shoulder joint pain; Translations: [Pain in right shoulder] 09-20-2023 Episodic Other non-traumatic joint disorders (1 source) Pain in right shoulder; Translations: [Pain in right shoulder] Onset: 4 Episodic Other nutritional; endocrine; and metabolic disorders (7 sources) Body mass index 40+ - severely obese; Translations: [Morbid obesity] Chronic Other nutritional; endocrine; and metabolic disorders (1 source) Obesity, unspecified; Translations: [OBESITY UNSPECIFIED] Onset: 2 Chronic Other nutritional; endocrine; and metabolic disorders (12 sources) Hypomagnesemia; Translations: [Hypomagnesemia] 12-20-2022 Chronic Other nutritional; endocrine; and metabolic disorders (7 sources) History of Graves' disease; Translations: [Personal history of other endocrine, metabolic, and immunity disorders] Episodic Other skin disorders (1 source) Rash and other nonspecific skin eruption Episodic Other upper respiratory infections (4 sources) Acute pharyngitis, unspecified; Translations: [Streptococcal pharyngitis] Episodic Phlebitis; thrombophlebitis and thromboembolism (17 sources) Phlebitis; Translations: [Phlebitis and thrombophlebitis of unspecified site] 12-15-2018 Episodic Residual codes; unclassified (12 sources) Chronic pain; Translations: [Other chronic pain] Onset: 4 01-18-2014 Chronic Residual codes; unclassified (17 sources) Peripheral edema; Translations: [Edema, unspecified] 11-19-2019 Episodic Screening and history of mental health and substance abuse codes (14 sources) Ex-smoker; Translations: [Personal history of tobacco use] Episodic Comment on above: quit 01/28/22; Spondylosis; intervertebral disc disorders; other back problems (20 sources) Solitary sacroiliitis; Translations: [Sacroiliitis, not elsewhere classified] Onset: 2 Chronic Spondylosis; intervertebral disc disorders; other back problems (18 sources) Neck pain; Translations: [Backache] Onset: 2 01-18-2014 Episodic Sprains and strains (20 sources) Sprain of knee; Translations: [Sprain of unspecified site of right knee, initial encounter] 10-03-2023 Episodic Thyroid disorders (11 sources) Hypothyroidism; Translations: [Unspecified acquired hypothyroidism] 01-18-2014 Chronic Unclassified (1 source) LOW BACK PAIN, UNSPECIFIED; Translations: [LOW BACK PAIN, UNSPECIFIED] Onset: 2 Unclassified (1 source) Encounter for screening mammogram for malignant neoplasm of breast; Translations: [Encounter for screening mammogram for malignant neoplasm of breast] Onset: 3 Past or Other Problems Problem Classification Problem Date Documented Da te Episodic/Chronic Other aftercare (1 source) Other prison (current) drug therapy; Translations: [Other prison (current) drug therapy] Onset: 03-17-2023 Episodic Other connective tissue disease (4 sources) Other muscle spasm; Translations: [OTHER MUSCLE SPASM] Onset: 01-06-2022 Episodic Residual codes; unclassified (1 source) Family history of malignant neoplasm of breast; Translations: [Family history of malignant neoplasm of breast] Onset: 12-29-2022 Episodic Unclassified (2 sources) Cough R05.9 Viral infection (2 sources) COVID-19 Results Test Name Value Interpretation Reference Range Facil ity No Panel InformationOrdered By: Selina Lomas on 12-05-2023 COVID Antigen (POC) [facility] Family Medicine Office/Clini c Noteon 10-12-2023 Family Medicine Office/Clinic Note Chief Complaint F/U HPI Staff Patient here today for F/U Shoulder pain/OMT JERRICA 09/21/23 No other issues or concerns today Ortho Consult 10/03/23 10/10/23 Transforaminal epidural injection History of Present Illness Social: The patient is in a long-term relationship with Katie; more than ten years The patient is not currently working; 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 The only time he calls me is when he needs something. He has two kids, 3 and 5, with a woman who now lives in [place]; they come to [facility] every other weekend and stay with the patient - he struggles with coping with the reality that their mother doesn't want to be in a relationship with him He also has one kid, 2, with a woman in [place] - she has full custody of that child Youngest son works at [employer] in housekeeping - he's in college my youngest son has Asperger's Youngest daughter is at [employer] for cosmetology - might seek training for cosmetology after graduation both son's have ADHD my girls are good... my boys, i don't know what to do with them Her brother and step father both from a fentanyl overdose Screening: Colon Cancer screening: done at [employer] in 2022 with a ten year f/u recommended; this patient does NOT have family history of colon cancer Breast cancer screening: done at [employer] (usually ordered by PCP); this patient DOES have a family history of breast cancer - paternal grandmother Pap smear: 2 years DEXA: age Labs: usually done at [employer] Smokers/ former smokers: Low dose lung CT: intermittent - socially; never went over a half pack a day. Began age 17. Her partner does not smoke. List of Providers: Counseling/psychiatr charlene-Radha Mcintosh Rheumatology - SAMMY Skinner (autoimmune evaluation) Endocrinology - Dr. Dove (managing thyroid meds) Cardiology - Dr. Owen Schmidt Urology - Dr Ozuna (for botox injections) Pain management - [facility] --> prescribes norco --> Brielle Dominguez / Dr. Murphy Shoe Clerk - Dr. Amanda Montiel Ortho - Dr. Chaz Carrillo DO Diabetes / Prediabetes: mother has diabetes HPI staff / Chief Complaint confirmed with the patient Interval history: Today, the patient describes neck pain in the upper and midback area as a dull aching pain the pain is there all the time Today, the pain is a 4 out of 10 The best the pain has been this month is a 4 out of 10 The worst the pain has been this month is a 7-8 out of 10 no radiation of pain ice, heat, Huger, and Tylenol can help for an hour or two for the pain On October 03, 2023, an injection of Kenalog in the right subacromial space was done and has helped lifting, bending, standing too long, sometimes nothing at all makes the pain worse had a transforaminal epidural at T9, T10, T11, and T12 on the right side was done yesterday at the [facility], done by Dr. Georgina kaur through the [place] [facility] this procedure has helped with her pain This patient was seen for this complaint previously and treated with manipulation (OMT aka OMM). The patient reports SOME improvement of symptoms after OMT. Today, the patient reports their symptoms are PRESENT and is requesting OMT again. Based on their report of symptoms and my exam findings, I believe OMT is not appropriate today due to a transforaminal epidural done yesterday. would like to know if Barriga greens supplements would interfere with any current medications October 03, 2023 - Ortho consult impingement of the right inferior acromion and greater tuberosity 1mL of Kenalog in the right subacromial space recommends PT f/u in 10 weeks or PRN From last note: This patient was seen for this complaint previously and treated with manipulation (OMT aka OMM). The patient reports SOME improvement of symptoms after OMT. Today, the patient reports their symptoms are PRESENT and is requesting OMT again. Based on their report of symptoms and my exam findings, I believe OMT is appropriate today. The patient expresses consent for manipulation today. Woke up five days ago in pain pointing to the right trap, shoulder joint and proximal humerus very deep ache did nothing out of the ordinary, just woke up with the pain no issue with hand strength loss sometimes it feels better when she lifts her arm Review of Systems PHQ Score Initial Depression Screen Score: 0 SCORE 13 point system ROS negative unless mentioned in HPI Physical Exam Vitals & Measurements HR: 70(Peripheral) BP: 122/80 SpO2: 96% HT: 66 in HT: 167 cm WT: 129.3 kg WT: 284.46 lb BMI: 46.36 Constitutional: Vital signs reviewed; LUPE PICKARD is well nourished, no acut (more content not included)... [facility] Comment on above: Result Comment: Elec tronically Signed By: Diony Singh DO\.chanel\Date and Time Signed: 10/12/23 09:11 EDT Consultation Noteon 10-04-19 Consultation Note [id number] #1.00TIFF [facility] ED Note-Physicianon 09-23-19 ED Note-Physician [id number] #1.00TIFF [facility] Physician Referralon 024 Physician Referral [id number] #1.00TIFF [facility] Physician Referral [id number] #1.00TIFF [facility] Ambulatory Visit Summaryon 0 09-21-2023 Ambulatory Visit Summary LUPE PICKARD :1975 Visit Date:09/21/2023 Ambulatory Visit Instructions Your Diagnosis Rotator cuff injury Shoulder pain Adult BMI 45.0-49.9 kg/sq m Your Care Team Attending Physician - Diony Singh DO Primary Care Physician - Diony Singh DO This Is Your Medications List predniSONE (predniSONE 20 mg Tab) Contact prescribing physician if questions or concerns Turmeric acetaminophen (Tylenol) acetaminophen-oxycod one (acetaminophen-oxyco done 325 mg-5 mg Tab) aspirin (aspirin 81 mg oral capsule) bifidobacterium infantis (Align) calcium-vitamin D (calcium (as carbonate)-vitamin D 500 [...] cervix, Thyroidectomy. Discharge Vitals Heart Rate (Peripheral) 81 Blood Pressure 130/86 Height 167 cm Height 66 in Weight 131.2 kg Weight 288.64 lb BMI 47.04 What to do next Scheduled Follow-Up Appointments Tuesday 3:00 PM EDT With: Diony Singh DO Where: [facility] Medicine [place] Invalid Interpretation Code [address] [place], [place] [address]-\.br\ You Need to Schedule the Following Appointments\.br\ Follow Up with Diony Singh DO, JOSELUIS, PED When: Within 1 month\.br\ Comments:\.br\ OMT PRN - 40 min slot\.br\ To go instructions (to paste into follow up):\.br\ I believe you may have a rotator cuff injury\.br\ The treatment for this includes physical therapy --> I will send a referral today\.br\ I have placed a referral to ortho to evaluate this as well - they would consider an injection\.br\ take 40mg prednisone daily for the next 7 days\.br\ F/u as planned\.br\ \.br\ Where:\.br\ [address]\.br\ [place] [address]\.br\ [phone]\.br\ Someone Will Contact You Regarding These Appointments\.br\ [facility] External Ambulatory Referral, Orthopaedics, Jacqui Lin, 09/21/23 12:00:00 EDT, Rotator cuff injury\.br\ [facility] External Ambulatory Referral, Physical Therapy, riley, 09/21/23 12:13:00 EDT, Rotator cuff injury [facility] Medicine Office/Clini c Noteon 09-21-2023 Family Medicine Office/Clinic Note Chief Complaint ER F/U HPI Staff ER followup: [facility] [facility] [place] date: 09/20/23 Symptoms the patient presented with: Right side shoulder pain deep aching feeling nonstop/ Just woke up that way Current concerns: She would like maybe an injection? or MRI to see whats going on. 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 The only time he calls me is when he needs something. He has two kids, 3 and 5, with a woman who now lives in [place]; they come to [facility] every other weekend and stay with the patient - he struggles with coping with the reality that their mother doesn't want to be in a relationship with him He also has one kid, 2, with a woman in [place] - she has full custody of that child Youngest son works at [employer] in housekeeping - he's in college Youngest daughter is at [employer] for cosmetology - might seek training for cosmetology after graduation both son's have ADHD my girls are good... my boys, i don't know what to do with them Screening: Colon Cancer screening: done at [employer] [facility] in 2022 with a ten year f/u recommended; this patient does NOT have family history of colon cancer Breast cancer screening: done at [employer] [facility] (usually ordered by PCP); this patient DOES have a family history of breast cancer - paternal grandmother Pap smear: 2 years DEXA: age Labs: usually done at [employer] [facility] Smokers/ former smokers: Low dose lung CT: intermittent - socially; never went over a half pack a day. Began age 17. Her partner does not smoke. List of Providers: Counseling/psychiatr charlene-Radha Mcintosh Rheumatology - SAMMY Skinner (autoimmune evaluation) Endocrinology - Dr. Dove (managing thyroid meds) Cardiology - Dr. Owen Schmidt Urology - Dr Ozuna (for botox injections) Pain management - [facility] --> prescribes norco --> Brielle Dominguez / Dr. Murphy Shoe Clerk - Dr. Amanda Montiel Ortho referral 09/21/23 HPI staff / Chief Complaint confirmed with [...] The patient expresses consent for manipulation today. Woke up five days ago in pain pointing to the right trap, shoulder joint and proximal humerus very deep ache did nothing out of the ordinary, just woke up with the pain no issue with hand strength loss sometimes it feels better when she lifts her arm Seen in the [facility] ED on 09/20/23 - xray reveals some evidence of arthritis and perhaps some evidence of rotator cuff injury Physical Exam Vitals & Measurements HR: 81(Peripheral) BP: 130/86 SpO2: 98% HT: 66 in HT: 167 cm WT: 131.2 kg WT: 288.64 lb BMI: 47.04 PHYSICAL EXAM Constitutional: Vital signs reviewed; LUPE PICKARD is well nourished, mild distress Lungs: Clear to auscultation, non-labored respiration - expansion is symmetric Heart: Normal rate and rhythm, normal peripheral perfusion MSK: Thoracic paraspinal muscles are tight/tender on the right right shoulder AROM is full Skin: Warm, dry Neurologic: Awake, alert and oriented Psychiatric: Cooperative, anxious Procedure Osteopathic Manipulation Thoracic Spine: Chronic and acute tissue texture changes of the trapezius, rhomboid on the RIGHT - treated with myofascial, BLT and FPR - with objective and subjective improvement Upper Extremity: Fascial restriction of teres on the RIGHT - treated with myofascial - with objective and subjective improvement Assessment/Plan 1. Rotator cuff injury (S46.009A: Unspecified injury of muscle(s) and tendon(s) of the rotator cuff of unspecified shoulder, initial encounter) Subacute Not resolving as expected Unclear etiology The patient does NOT not engage in sports that require significant over the head activity - tennis, swimming, weight lifting, throwing sports, volleyball, gymnastics The patient does NOT not work in an occupation that requires significant over the head activity with the upper extremities There is no instability of the GH joint found on exam today There is some evidence of scapular dyskinesia on exam today; which can predispose to SIS CONSERVATIVE treatment includes NSAIDs, tylenol, PT The patient agrees to PT referral today PLAIN (more content not included)... Normal [facility] Comment on above: Result Comment: Elec tronically Signed By: Diony Singh DO\Date and Time Signed: 09/21/23 19:51 EDT RAD - MISCon 09-21-2023 RAD - MIS [id number] #1.00TIFF Normal [facility] XR shoulder RT min 2V*on XR shoulder RT min 2V* [facility] [address] [address] XRay Report Signed Patient: Lupe Pickard MR#: [id number] : 1975 Acct:[id number] Age/Sex: 48 / F ADM Date: 09/20/23 Loc: ER Room: Type: [facility] ER Attending Dr: Copies to: Javad Lozoya APRN Ordering Provider: Javad Lozoya APRN Date of Service: 09/20/23 XR/XR shoulder RT min 2V*: Extremity Injury, Upper RIGHT SHOULDER - 3 views CLINICAL HISTORY: Right posterior shoulder pain radiating down the arm. COMPARISON: Chest x-ray 08/16/2022 AP, Y and Grashey views were obtained. There is no evidence of fracture or dislocation. There is minimal hypertrophic degenerative change at the acromioclavicular joint minor spurring at the distal acromion. There is some sclerosis of greater tuberosity. On the Grashey and Y views, there is narrowing of the glenohumeral interval. This could indicate rotator cuff impingement. There are no significant soft tissue abnormalities. XR/XR shoulder RT min 2V* IMPRESSION: MILD DEGENERATIVE CHANGES. NO ACUTE BONY FINDINGS. Impression dictated by: Rizwana Thacker M.D.09/20/2023 12:27 PM Dictation Location: [place] [address] Transcribed By: [facility] 09/20/23 1227 Dictated By: Rizwana Thacker MD 09/20/23 1224 Signed By: 09/20/23 1227 Normal [facility] Family Medicine Office/Clini c Noteon 09-07-2023 Family Medicine Office/Clinic Note Chief Complaint F/U HPI Staff Patient here for F/U OMT Neck/Back JERRICA 07/26/23 Labs 07/29/23 [facility] Concerns for her vitamin D level. 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 The only time he calls me is when he needs something. He has two kids, 3 and 5, with a woman who now lives in [place]; they come to [facility] every other weekend and stay with the patient - he struggles with coping with the reality that their mother doesn't want to be in a relationship with him He also has one kid, 2, with a woman in [place] - she has full custody of that child Youngest son works at [employer] in housekeeping - he's in college Youngest daughter is at [employer] for cosmetology - might seek training for cosmetology after graduation both son's have ADHD my girls are good... my boys, i don't know what to do with them Screening: Colon Cancer screening: done at [employer] [facility] in 2022 with a ten year f/u recommended; this patient does NOT have family history of colon cancer Breast cancer screening: done at [employer] (usually ordered by PCP); this patient DOES have a family history of breast cancer - paternal grandmother Pap smear: 2 years DEXA: age Labs: usually done at [employer] Smokers/ former smokers: Low dose lung CT: intermittent - socially; never went over a half pack a day. Began age 17. Her partner does not smoke. List of Providers: Counseling/psychiatr y-Radha Mcintosh Rheumatology - SAMMY Skinner (autoimmune evaluation) Endocrinology - Dr. Dove (managing thyroid meds) Cardiology - Dr. Owen Schmidt Urology - Dr Ozuna (for botox injections) Pain management - [facility] --> prescribes norco --> Brielle Dominguez / Dr. Murphy Shoe Clerk - Dr. Amanda Montiel HPI staff / Chief Complaint confirmed with the patient Interval history: Today, the patient describes neck and back pain, all the time, everyday Back pain is 5-6 out of 10 Described as dull ache along the bra line norco was increased to 7.5/325 at her last pain management appt strongest on the right side of her neck - constant radiates into the right shoulder and into the bra line EMG done a long time ago in [place] --> WILL in [place] for chronic pain reports IBS symptoms - colonoscopy done by Dr. Alaniz Jul 27, 2023 - Cardiology - Dr. Franklyn Madera palpitations - good control with propranolol and diltiazem *noted to have negative PSG f/u 6 months (anything tagged from the patients medical record will be at the bottom of this section) HPI staff / Chief Complaint confirmed with [...] The patient expresses consent for manipulation today. I don't know why I've gained weight is a size 22 older daughter is around her size younger daughter is a size 14 mom and aunt are both about the same size as the patient I feel like if I didn't have the pain all the time, I'd work out more has never take a medication to lose weight From last note: (tagged below) PHYSICAL EXAM Constitutional: Vital signs reviewed; this patient is well nourished, no acute distress Lungs: Clear to auscultation, non-labored respiration - expansion is symmetric Heart: Normal rate and rhythm, normal peripheral perfusion MSK: Gait is fluid SI joint is tender bilat Lumbar paraspinal muscle tight/tender bilaterally; worse on the right Lumbar AROM is stiff in all vectors Core muscles are sub-optimal in tension at rest Skin: Warm, dry Neurologic: Awake, alert and oriented Psychiatric: Cooperative, appropriate mood and affect, judgement is appropriate Procedure documentation - Osteopathic Manipulation: Head: OA dysfunction - treated with BLT and FPR - with objective and subjective improvement Cervical Spine: Reduced range of motion, tenderness at the insertion of the middle scalene on rib 1 on BILAT; worse on the right - treated with BLT and FPR - with objective and subjective improvement Thoracic Spine: Chronic and acute tissue texture changes of the trapezius, rhomboid BILAT; worse on the right - treated with myofascial, BLT and FPR - with objective and forman (more content not included)... Normal [facility] Comment on above: Result Comment: Elec tronically Signed By: Diony Singh DO\.br\Date and Time Signed: 09/07/23 09:15 EDT RAD - MRI Reporton RAD - MRI Report [id number] #1.00TIFF Normal [facility] Ambulatory Visit Summaryon 0 09-06-2023 Ambulatory Visit Summary LUPE PICKARD :1975 Visit Date:09/06/2023 Ambulatory Visit Instructions Your Diagnosis Chronic bilateral low back pain Chronic neck pain Spasm of lumbar paraspinous muscle Trapezius muscle spasm Poor posture Abdominal weakness Fibromyalgia Somatic dysfunction of cervical region Somatic dysfunction of head region Somatic dysfunction of thoracic region Somatic dysfunction of lumbar region Somatic dysfunction of sacral spine Somatic dysfunction of lower extremities Adult BMI 45.0-49.9 kg/sq m Other chronic pain Your Care Team Attending Physician - Diony Singh DO Primary Care Physician - Diony Singh DO This Is Your Medications List Contact prescribing physician if questions or concerns Turmeric acetaminophen (Tylenol) acetaminophen-hydroc odone (acetaminophen-hydro codone 325 mg-7.5 mg oral tablet) aspirin (aspirin 81 mg oral capsule) bifidobacterium infantis (Align) calcium-vitamin D (calcium (as carbonate)-vitamin D 500 [...] (Multi Vitamin+) propranolol (propranolol 20 mg Tab) [Image Removed: STOP]Stop taking these medications Turmeric acetaminophen-hydroc odone (Huger 5/325 Tab) bacillus coagulans (Probiotic Digestive Aid Gummies) Procedures Performed Injection of therapeutic substance into [...] cervix, Thyroidectomy. Discharge Vitals Heart Rate (Peripheral) 70 Blood Pressure 120/90 Height 167 cm Height 66 in Weight 129.8 kg Weight 285.56 lb BMI 46.54 What to do next Scheduled Follow-Up Appointments Tuesday 3:00 PM EDT With: Diony Singh DO Where: [facility] [address] [place] [address]-\.br\ You Need to Schedule the Following Appointments\.br\ Follow Up with Diony Singh DO, JOSELUIS, PED When: Within 1 month\.br\ Comments:\.br\ OMT PRN - 40 min slot\.br\ To go instructions (for follow up):\.br\ I agree - keeping a daily diary including what food you're eating, how much sleep and quality of sleep, mood and pain level on a daily basis\.br\ Work on using your core muscles more when standing and sitting\.br\ This may take some concentration and work initially but it will eventually become more natural to you\.br\ Work on shoulder retraction exercises\.br\ *when you see providers outside of our system, please ask that they send records\.br\ F/u 1 month or PRN\.br\ Where:\.br\ [address]\.br\ [place] [address]\.br\ [phone]\.br\ Medications\.br\ What How Much When Why Instructions\.br\ Unchanged acetaminophen (Tylenol) Contact prescribing physician if questions or concerns \.br\ Unchanged acetaminophen-hyd rocodone (acetaminophen-hy drocodone 325 mg-7.5 mg oral tablet) 1 Tablets 2 times a day Contact prescribing physician if questions or concerns \.br\ Unchanged aspirin (aspirin 81 mg oral capsule) Contact prescribing physician if questions or concerns \.br\ Unchanged bifidobacterium infantis (Align) By Mouth Every day Contact prescribing physician [...] physician if questions or concerns \.br\ Unchanged Turmeric Contact prescribing physician if questions or concerns \.br\ \.br\ What How Much When Comments\.br\ Stop Taking acetaminophen-hyd rocodone (Huger 5/ 325 Tab) 2 Tablets\.br\ Stop Taking bacillus coagulans (Probiotic Digestive Aid Gummies)\.br\ Stop Taking Turmeric By Mouth Every day\.br\ Allergies\.br\ Effexor (Dreams)\.br\ Problems\.br\ Ongoing - Any problem that you are currently receiving treatment for.\.br\ Abdominal weakness\.br\ Anemia\.br\ Anxiety\.br\ Atopic dermatitis\.br\ BMI 40.0-44.9, adult\.br\ Butterfly rash\.br\ Chronic bilateral low back pain\.br\ Chronic insomnia\.br\ Chronic neck pain\.br\ Degenerative disc disease, thoracic\.br\ Diffuse arthralgia\.br\ Exercise counseling\.br\ Fibromyalgia\.br\ Flu syndrome\.br\ GERD (gastroesophageal reflux disease)\.br\ Medication management\.br\ Moderate recurrent major depression\.br\ Morbid obesity\.br\ Nutritional counseling\.br\ Other specified hypothyroidism\.b r\ Overactive bladder\.br\ Palpitations\.br\ Panic attack\.br\ Poor posture\.br\ Post-surgical hypothyroidism\.b r\ Rib pain on left side\.br\ Smoker\.br\ Somatic dysfunction of abdominal region\.br\ Somatic dysfunction of cervical region\.br\ Somatic dysfunction of head region\.br\ Somatic dysfunction of lower extremities\.br\ Somatic dysfunction of lumbar region\.br\ Somatic dysfunction of rib cage region\.br\ Somatic dysfunction of sacral spine\.br\ Somatic dysfunction of thoracic region\.br\ Spasm of lumbar paraspinous muscle\.br\ Stress at home\.br\ Symptomatic PVCs\.br\ Trapezius muscle spasm\.br\ Vitamin D deficiency\.br\ Historical - Any problem that you are no longer receiving treatment for.\.br\ Hypervitaminosis D\.br\ Smoker\.br\ Patient Survey\.br\ You may receive a survey via text or e-mail asking about your office visit. Please share your experience with us by completing your survey. We appreciate your feedback and thank you for choosing us for your care.\.br\ \.br\ [facility] MR thoracic spine wo conon 0 08-16-2023 MR thoracic spine wo con [facility] Main [place] [address] [place] [address] MRI Report Signed Patient: Luep Pickard MR#: [id number] : 1975 Acct:[id number] Age/Sex: 48 / F ADM Date: 08/16/23 Loc: MR Room: Type: [facility] Attending Dr: Brielle GERMAIN Copies to: MARCELLUS Vallejo Ordering Provider: MARCELLUS Vallejo Date of Service: 08/16/23 MR/MR thoracic spine wo con: [id number] MR thoracic spine wo con 08/16/2023 4:19 PM SIGNS AND SYMPTOMS: Chronic mid back pain PROTOCOL: Multiplanar multisequence MR images of the thoracic spine were obtained without IV contrast. COMPARISON: 05/04/2022 and 09/17/2022 FINDINGS: The bones of the thoracic spine are in anatomic alignment. There is preservation of vertebral body heights. There is mild disc height loss at T7-T8, T9-T10, T10-T11, T11-T12, T12-L1, and L1-L2. Benign-appearing hemangiomas are noted at T8 and L1. The marrow signal is within normal limits. [...] neural foramen. At T7-T8: There is a central disc protrusion contributing to mild spinal canal narrowing. No significant neural foraminal narrowing. At T8-T9: There is a normal disc, central canal, and neural foramen. At T9-T10: There is a broad-based disc bulge with facet V. There is mild spinal canal narrowing with mild bilateral neural foraminal narrowing. At T10-T11: There is a broad-based disc bulge with facet hypertrophy. There is mild spinal canal narrowing and mild bilateral neural foraminal narrowing. At T11-T12: There is a normal disc, central canal, and neural foramen. At T12-L1: There is a normal disc, central canal, and neural foramen. MR/MR thoracic spine wo con IMPRESSION: No cord compression or cord signal abnormality. At T7-T8: There is a central disc protrusion contributing to mild spinal canal narrowing. No significant neural foraminal narrowing. At T9-T10: There is a broad-based disc bulge with facet V. There is mild spinal canal narrowing with mild bilateral neural foraminal narrowing. At T10-T11: There is a broad-based disc bulge with facet hypertrophy. There is mild spinal canal narrowing and mild bilateral neural foraminal narrowing. Impression dictated by: Ernie Roper M.D.08/16/2023 5:28 PM Dictation Location: [place] [address] Transcribed By: [facility] 08/16/231727 Dictated By: Ernie Roper II, MD 08/16/231721 Signed By: 08/16/231727 Normal [facility] Lab Reportson 07-29-2023 Lab Reports [id number] #1.00TIFF Normal [facility] Consent for Treatmenton 07-01 Consent for Treatment [id number] #1.00TIFF Normal [facility] Ferritinon 07-28-2023 Ferritin [Mass/Vol] 180.6 ng/mL Normal 11.0-306.8 [facility] Comment on above: Performed By: #### H S TROP #### [address] Ferritin [Mass/volume] in Se rum or PlasmaOrdered By: Diony Singh on 07-28-2023 Ferritin [Mass/Vol] 180.6 ng/mL 11.0-306.8 [facility] Folateon 07-28-2023 Folate 43.0 ng/mL Normal >5.9 [facility] Comment on above: Result Comment: Janel te reference range: >5.9 ng/ml The WHO technical consultation on folate and vitamin b12 deficiencies has determined that folate concentrations less than 4 ng/ml are considered deficient. Performed By: #### H S TROP #### [facility] [address] Folate [Mass/volume] in Seru m or PlasmaOrdered By: Diony Singh on 07-28-2023 Folate [Mass/Vol] 43.0 ng/mL >5.9 [facility] Comment on above: Folate reference ran ge: >5.9 ng/mlThe WHO technical consultation on folate and vitamin [id number] has determined that folate concentrations lessthan 4 ng/ml are considered deficient. Heart and Vascular Office/Cl inic Noteon 07-28-2023 Heart and Vascular Office/Clinic Note History of Present Illness Patient is a very pleasant 48-year-old morbidly obese nondiabetic female with a history of fibromyalgia, GERD, former smoker quit more than 30 years ago, referred to our office for palpitations. Patient was originally referred to [facility] with Dr. 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 Given the patient's family history of heart disease she wanted a second opinion. The patient went to the emergency room in the recent past and [facility] where her blood pressure was found [...] stress test. Overall low risk stress. [1] In addition patient underwent a event monitor on 04/06/2023 with the following results: CONCLUSIONS: Relatively benign appearing event monitor. Occasional premature ventricular contraction. Clinical correlation suggested. [1] Patient is now here to go [...] better controlled on diltiazem, but her palpitations continued so we added propranolol which has completely resolved her palpitations. The patient recently had COVID and is now recovering. She denies any chest pain symptoms. In our office her blood pressure is 138/87 and pulse of 72 and regular. Physical exam demonstrates moderate obesity, [...] rash or concerning lesions Assessment/Plan 1. Palpitations: The patient has excellent control of her palpitations with combination of propranolol and diltiazem. In addition her blood pressure is well-controlled as well. She is been tested for JOSELINE which was negative. Recommend continuing propranolol and diltiazem. Does not require anticoagulation at this time. 2. Return to office in 6 months. Follow-up No qualifying data available Problem List/Past Medical History Ongoing Abdominal weakness Anemia Anxiety Atopic dermatitis BMI 40.0-44.9, adult Butterfly rash Chronic bilateral low back pain Chronic insomnia Chronic neck pain Degenerative disc disease, thoracic Diffuse arthralgia Exercise counseling Fibromyalgia Flu syndrome GERD (gastroesophageal reflux disease) Medication management Moderate recurrent major depression Morbid o (more content not included)... Normal [facility] Comment on above: Result Comment: Elec tronically Signed By: SANTY PELAYO, Franklyn Arias\.br\Date and Time Signed: 07/28/23 11:46 EST Ironon 07-28-2023 Iron [Mass/Vol] 100 ug/dL Normal 50-212 [facility] Comment on above: Performed By: #### H S TROP #### [facility] [address] [place] [id number] [facility] Iron [Mass/volume] in Serum or PlasmaOrdered By: Diony Singh on 07-28-2023 Iron [Mass/Vol] 100 ug/dL 50-212 [facility] Magnesiumon 07-28-2023 Magnesium [Mass/Vol] 2.0 mg/dL Normal 1.9-2.7 [facility] Comment on above: Performed By: #### H S TROP #### [facility] [address] [place] [id number] [facility] Magnesium [Mass/volume] in S zakia or PlasmaOrdered By: Diony Singh on 07-28-2023 Magnesium [Mass/Vol] 2.0 mg/dL 1.9-2.7 [facility] Physician Orderon 07-28-2023 Physician Order [id number] #1.00TIFF Normal [facility] Thyroid Stim Hormone w/Rflxo n 07-28-2023 Thyroid Stim Hormone w/Rflx 1.20 u[iU]/mL Normal 0.45-5.33 [facility] Comment on above: Performed By: #### H S TROP #### [address] Thyrotropin [Units/volume] i n Serum or PlasmaOrdered By: Diony Singh on 07-28-2023 TSH Qn 1.20 m[IU]/L 0.45-5.33 [facility] Vitamin B12on 07-28-2023 Cobalamin (Vitamin B12) [Mass/Vol] 432 pg/mL Normal 180-914 [facility] Comment on above: Performed By: #### H S TROP #### [address] Vitamin B12 ser/plasOrdered By: Diony Singh on 07-28-2023 Cobalamin (Vitamin B12) [Mass/Vol] 432 pg/mL 180-914 [facility] Vitamin D 25 Hydroxy Totalon 07-28-2023 Vitamin D 25 Hydroxy Total 32.9 ng/mL Normal 30-100 [facility] Comment on above: Result Comment: QASIM MIN D STATUS 25(OH)VITAMIN D RANGE (ng/mL) Deficient <20 Insufficient 20 to <30 Sufficient 30 to 100 Reference: Kirby MF,Adonay NC, Shantelle HOLLOWAY, et al. Evaluation,treatment, and prevention of vitamin D deficiency; an Endocrine Society clinical practice guideline. JCEM. 2010; 96(7):1911-30. PERFORMED BY: [place] [id number] PATHOLOGIST [employer] WENDY CLARK M.D. Performed By: #### H S TROP #### [address] Vitamin D+Metabolites [Mass/ volume] in Serum or PlasmaOrdered By: Diony Singh on 07-28-2023 Vitamin D+Metabolites [Mass/Vol] 32.9 ng/mL 30-100 [facility] Comment on above: VITAMIN D STATUS 25( [place])VITAMIN D RANGE (ng/mL) Deficient <20 Insufficient 20 to <30Sufficient 30 to 100Reference: Kirby MF,Adonay NC, Shantelle HOLLOWAY, et al. Evaluation,treatment, and prevention of vitamin D deficiency; an Endocrine Society clinical practice guideline. JCEM. 2010; 96():1911-30. Ambulatory Visit Summaryon 0 07-26-2023 Ambulatory Visit Summary LUPE PICKARD :1975 Visit Date:07/26/2023 Ambulatory Visit Instructions Your Diagnosis Chronic bilateral low back pain Chronic neck pain Spasm of lumbar paraspinous muscle Trapezius muscle spasm Abdominal weakness Poor posture Somatic dysfunction of head region Somatic dysfunction of cervical region Somatic dysfunction of thoracic region Somatic dysfunction of lumbar region Somatic dysfunction of sacral spine Somatic dysfunction of lower extremities Fibromyalgia Anxiety Post-surgical hypothyroidism Palpitations Anemia Autoimmune disorder Flu syndrome Stress at home Adult BMI 45.0-49.9 kg/sq m Hypokalemia Hypothyroidism Low vitamin D level Other chronic pain Your Care Team Attending Physician - Diony Singh DO Primary Care Physician - Diony Singh DO This Is Your Medications List Turmeric acetaminophen (Tylenol) acetaminophen-hydroc odone (Huger 5/325 Tab) aspirin (aspirin 81 mg oral capsule) bifidobacterium infantis (Align) calcium-vitamin D (calcium (as carbonate)-vitamin D 500 [...] cervix, Thyroidectomy. Discharge Vitals Heart Rate (Peripheral) 69 Blood Pressure 134/88 Height 167 cm Height 66 in Weight 125.5 kg Weight 276.1 lb BMI 45 What to do next Scheduled Follow-Up Appointments 2023 11:30 AM EST With: Franklyn MADERA MD Where: [facility]iology Clinic Tuesday 2:20 PM EDT With: Diony Singh DO Where: [facility] [address] [place] [address]-\.br\ You Need to Schedule the Following Appointments\.br\ Follow Up with Diony Singh DO, JOSELUIS, PED When: Within 1 month\.br\ Comments:\.br\ OMT PRN - 40 min slot\.br\ To go instructions (for follow up):\.br\ Complete tamiflu\.br\ Have labs drawn at [facility] and make sure they send us a copy; I will call with results\.br\ Continue other medications for symptom management PRN\.br\ Work on using your core muscles more when standing and sitting\.br\ This may take some concentration and work initially but it will eventually become more natural to you\.br\ Work on shoulder retraction exercises\.br\ F/u with other specialists as recommended\.br\ F/u here in 1 month or as needed; ok to cancel if feeling well\.br\ Where:\.br\ [address]\.br\ [place] [id number]\.br\ [phone]\.br\ Medications\.br\ What How Much When Why Instructions\.br\ Unchanged acetaminophen (Tylenol)\.br\ Unchanged acetaminophen-hyd rocodone (Huger 5/ 325 Tab) 2 Tablets\.br\ Unchanged aspirin (aspirin 81 mg oral capsule)\.br\ Unchanged bifidobacterium infantis (Align) By Mouth Every day\.br\ Unchanged calcium-vitamin D (calcium (as carbonate)-vitami n D 500 mg-200 intl units oral tablet) 1 Tablets By Mouth 2 times a day\.br\ Unchanged cholecalciferol (D3)\.br\ Unchanged diltiazem (diltiazem CD 240 mg/ 24 hours Cap-ER) 1 Capsules By Mouth Every day\.br\ Unchanged escitalopram (escitalopram 10 mg Tab) 1 Tablets\.br\ Unchanged ferrous sulfate\.br\ Unchanged hydrocortisone topical (hydrocortisone butyrate topical 0.1% cream) 1 Application Topical 2 times a day Atopic dermatitis\.br\ Unchanged hydrOXYzine (hydrOXYzine pamoate 25 mg Cap)\.br\ Unchanged levothyroxine (Synthroid 112 mcg Tab) 1 Tablets By Mouth Every day Hypothyroidism managed by endocrinology \.br\ Unchanged liothyronine (liothyronine 5 mcg Tab) 2 Tablets\.br\ Unchanged lubiprostone (lubiprostone 24 mcg Cap) 1 Capsules By Mouth 2 times a day\.br\ Unchanged magnesium oxide 400 Milligram By Mouth 2 times a day\.br\ Unchanged melatonin 10 Milligram By Mouth Once a day (at bedtime)\.br\ Unchanged multivitamin (Multi Vitamin+)\.br\ Unchanged propranolol (propranolol 20 mg Tab) 1 Tablets By Mouth 2 times a day\.br\ Unchanged Turmeric By Mouth Every day\.br\ Allergies\.br\ Effexor (Dreams)\.br\ Problems\.br\ Ongoing - Any problem that you are currently receiving treatment for.\.br\ Abdominal weakness\.br\ Anemia\.br\ Anxiety\.br\ Atopic dermatitis\.br\ BMI 40.0-44.9, adult\.br\ Butterfly rash\.br\ Chronic bilateral low back pain\.br\ Chronic insomnia\.br\ Chronic neck pain\.br\ Degenerative disc disease, thoracic\.br\ Diffuse arthralgia\.br\ Exercise counseling\.br\ Fibromyalgia\.br\ Flu syndrome\.br\ GERD (gastroesophageal reflux disease)\.br\ Medication management\.br\ Moderate recurrent major depression\.br\ Morbid obesity\.br\ Nutritional counseling\.br\ Other specified hypothyroidism\.b r\ Overactive bladder\.br\ Palpitations\.br\ Panic attack\.br\ Poor posture\.br\ Post-surgical hypothyroidism\.b r\ Rib pain on left side\.br\ Smoker\.br\ Somatic dysfunction of abdominal region\.br\ Somatic dysfunction of cervical region\.br\ Somatic dysfunction of head region\.br\ Somatic dysfunction of lower extremities\.br\ Somatic dysfunction of lumbar region\.br\ Somatic dysfunction of rib cage region\.br\ Somatic dysfunction of sacral spine\.br\ Somatic dysfunction of thoracic region\.br\ Spasm of lumbar paraspinous muscle\.br\ Stress at home\.br\ Symptomatic PVCs\.br\ Trapezius muscle spasm\.br\ Vitamin D deficiency\.br\ Historical - Any problem that you are no longer receiving treatment for.\.br\ Hypervitaminosis D\.br\ Smoker\.br\ Patient Survey\.br\ You may receive a survey via text or e-mail asking about your office visit. Please share your experience with us by completing your survey. We appreciate your feedback and thank you for choosing us for your care.\.br\ \.br\ [facility] Ambulatory Visit Summary LUPE PICKARD Loren :1975 Visit Date:07/26/2023 Ambulatory Visit Instructions Your Diagnosis Chronic bilateral low back pain Chronic neck pain Spasm of lumbar paraspinous muscle Trapezius muscle spasm Abdominal weakness Poor posture Somatic dysfunction of head region Somatic dysfunction of cervical region Somatic dysfunction of thoracic region Somatic dysfunction of lumbar region Somatic dysfunction of sacral spine Somatic dysfunction of lower extremities Fibromyalgia Anxiety Post-surgical hypothyroidism Palpitations Anemia Autoimmune disorder Flu syndrome Stress at home Adult BMI 45.0-49.9 kg/sq m Hypokalemia Hypothyroidism Low vitamin D level Other chronic pain Your Care Team Attending Physician - Diony Singh DO Primary Care Physician - Diony Singh DO This Is Your Medications List Turmeric acetaminophen (Tylenol) acetaminophen-hydroc odone (Huger 5/325 Tab) aspirin (aspirin 81 mg oral capsule) bifidobacterium infantis (Align) calcium-vitamin D (calcium (as carbonate)-vitamin D 500 [...] cervix, Thyroidectomy. Discharge Vitals Heart Rate (Peripheral) 69 Blood Pressure 134/88 Height 167 cm Height 66 in Weight 125.5 kg Weight 276.1 lb BMI 45 What to do next Scheduled Follow-Up Appointments 2023 11:30 AM EST With: Franklyn MADERA MD Where: [facility]iology Clinic Tuesday 2:20 PM EDT With: Diony Singh DO Where: [facility] Normal [address] [place] [address]-\.br\ You Need to Schedule the Following Appointments\.br\ Follow Up with Diony Singh DO, FAM, PED When: Within 1 month\.br\ Comments:\.br\ OMT PRN - 40 min slot\.br\ To go instructions (for follow up):\.br\ Complete tamiflu\.br\ Have labs drawn at [facility] and make sure they send us a copy; I will call with results\.br\ Continue other medications for symptom management PRN\.br\ Work on using your core muscles more when standing and sitting\.br\ This may take some concentration and work initially but it will eventually become more natural to you\.br\ Work on shoulder retraction exercises\.br\ F/u with other specialists as recommended\.br\ F/u here in 1 month or as needed; ok to cancel if feeling well\.br\ Where:\.br\ [address]\.br\ [place] [address]\.br\ [phone]\.br\ Medications\.br\ What How Much When Why Instructions\.br\ Unchanged acetaminophen (Tylenol)\.br\ Unchanged acetaminophen-hyd rocodone (Huger 5/ 325 Tab) 2 Tablets\.br\ Unchanged aspirin (aspirin 81 mg oral capsule)\.br\ Unchanged bifidobacterium infantis (Align) By Mouth Every day\.br\ Unchanged calcium-vitamin D (calcium (as carbonate)-vitami n D 500 mg-200 intl units oral tablet) 1 Tablets By Mouth 2 times a day\.br\ Unchanged cholecalciferol (D3)\.br\ Unchanged diltiazem (diltiazem CD 240 mg/ 24 hours Cap-ER) 1 Capsules By Mouth Every day\.br\ Unchanged escitalopram (escitalopram 10 mg Tab) 1 Tablets\.br\ Unchanged ferrous sulfate\.br\ Unchanged hydrocortisone topical (hydrocortisone butyrate topical 0.1% cream) 1 Application Topical 2 times a day Atopic dermatitis\.br\ Unchanged hydrOXYzine (hydrOXYzine pamoate 25 mg Cap)\.br\ Unchanged levothyroxine (Synthroid 112 mcg Tab) 1 Tablets By Mouth Every day Hypothyroidism managed by endocrinology \.br\ Unchanged liothyronine (liothyronine 5 mcg Tab) 2 Tablets\.br\ Unchanged lubiprostone (lubiprostone 24 mcg Cap) 1 Capsules By Mouth 2 times a day\.br\ Unchanged magnesium oxide 400 Milligram By Mouth 2 times a day\.br\ Unchanged melatonin 10 Milligram By Mouth Once a day (at bedtime)\.br\ Unchanged multivitamin (Multi Vitamin+)\.br\ Unchanged propranolol (propranolol 20 mg Tab) 1 Tablets By Mouth 2 times a day\.br\ Unchanged [place] By Mouth Every day\.br\ Allergies\.br\ Effexor (Dreams)\.br\ Problems\.br\ Ongoing - Any problem that you are currently receiving treatment for.\.br\ Abdominal weakness\.br\ Anemia\.br\ Anxiety\.br\ Atopic dermatitis\.br\ BMI 40.0-44.9, adult\.br\ Butterfly rash\.br\ Chronic bilateral low back pain\.br\ Chronic insomnia\.br\ Chronic neck pain\.br\ Degenerative disc disease, thoracic\.br\ Diffuse arthralgia\.br\ Exercise counseling\.br\ Fibromyalgia\.br\ Flu syndrome\.br\ GERD (gastroesophageal reflux disease)\.br\ Medication management\.br\ Moderate recurrent major depression\.br\ Morbid obesity\.br\ Nutritional counseling\.br\ Other specified hypothyroidism\.b r\ Overactive bladder\.br\ Palpitations\.br\ Panic attack\.br\ Poor posture\.br\ Post-surgical hypothyroidism\.b r\ Rib pain on left side\.br\ Smoker\.br\ Somatic dysfunction of abdominal region\.br\ Somatic dysfunction of cervical region\.br\ Somatic dysfunction of head region\.br\ Somatic dysfunction of lower extremities\.br\ Somatic dysfunction of lumbar region\.br\ Somatic dysfunction of rib cage region\.br\ Somatic dysfunction of sacral spine\.br\ Somatic dysfunction of thoracic region\.br\ Spasm of lumbar paraspinous muscle\.br\ Stress at home\.br\ Symptomatic PVCs\.br\ Trapezius muscle spasm\.br\ Vitamin D deficiency\.br\ Historical - Any problem that you are no longer receiving treatment for.\.br\ Hypervitaminosis D\.br\ Smoker\.br\ Patient Survey\.br\ You may receive a survey via text or e-mail asking about your office visit. Please share your experience with us by completing your survey. We appreciate your feedback and thank you for choosing us for your care.\.br\ \.br\ [facility] Family Medicine Office/Clini c Noteon 07-26-2023 Family Medicine Office/Clinic Note Chief Complaint F/U OMT HPI Staff Patient here today to F.U OMT Neck/ Back/ ER F/U JERRICA 06/28/23 Patient on the mend from flu on last day of Marie-flu today. 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 The patient has 4 children 3 grandchildren *this patient's daughter, Sheron, works at [employer] on the OB floor - she's 29 Oldest son is 30, lives with his grandma since age 14; he's spoiled, and the world revolves around him. 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 The only time he calls me is when he needs something. He has two kids, 3 and 5, with a woman who now lives in [place]; they come to [facility] every other weekend and stay with the patient - he struggles with coping with the reality that their mother doesn't want to be in a relationship with him He has on kid, 2, with a woman in [place] - she has full custody of that child SHAHNAZ Holbrook, on her own Youngest son works at [employer] in housekeeping - he's in college Youngest daughter is at [employer] for cosmetology - might seek training for cosmetology after graduation both son's have ADHD my girls are good... my boys, i don't know what to do with them List of providers Counseling/psychiatr y-Radha Mcintosh Rheumatology - SAMMY Skinner (autoimmune evaluation) Endocrinology - Dr. Dove (managing thyroid meds) Cardiology - Dr. Owen Schmidt Urology - Dr Ozuna (for botox injections) HPI staff / Chief Complaint confirmed with [...] manipulation today. Today, the patient describes neck and back pain, all the time, everyday Back pain is 5-6 out of 10 Described as dull ache along the bra line The patient is consistent with medication Today, the patient describes neck tightness NECK pain is 2 out of 10 Described as SHARP on the right The patient describes no radiation down the arms has been taking the norco with a tylenol twice a day - I wonder if I should just stop that overall, anxiety has been better overall BP has been better controlled is checking twice a day at home palpitations are less since she decreased the liothyronine from 2 to 1 tab - 5mg overall better since adding propranolol Interval history: seen for Flu in the ED at [facility] [place]23 requested tamiflu today is her last day of tamiflu still has some congestion I for sure had covid and strep the week before was seen at [facility] urgent care for this was treated with amoxcillin for the strep symptomatic treatment for covid just finished the treatment for that and developed body aches From last note: (tagged below) PHYSICAL EXAM Constitutional: Vital signs reviewed; this patient is well nourished, no acute distress Lungs: Clear to auscultation, non-labored respiration - expansion is symmetric Heart: Normal rate and rhythm, normal peripheral perfusion MSK: Gait is somewhat antalgic SI joint is tender bilat; worse on the right Lumbar paraspinal muscle tight/tender bilaterally; worse on the right Core muscles are sub-optimal in tension at rest Cervical AROM is reduced in all vectors Skin: Warm, dry Neurologic: Awake, alert and oriented Psychiatric: Cooperative, appropriate mood and affect, judgement is appropriate Procedure documentation - Osteopathic Manipulation: Head: OA dysfunction - treated with BLT and FPR - with objective and subjective improvement Cervical Spine: Reduced range of motion, tenderness at the insertion of the middle scalene on rib 1 on BILAT; worse on the right - treated with BLT and FPR - with objective and subjective improvement Thoracic Spine: Chronic and acute tissue texture changes of the trapezius, rhomboid BILAT; worse on the right - treated with myofascial, BLT and FPR - with objective and subjective improvement Lumbar Spine: Lumbar paraspinal restriction on the BILAT; worse on the right - treated with myofascial, BLT and FPR - with objective and subjective improvement Sacral: SI dysfunction on the BILAT - treated with BLT and FPR - with objective and subjective improvement Lower Extremity: Psoas restriction and tenderness of bilat IT bands as well as bilat lateral gastrocs - treated with BLT and FPR - with objective and subjective improvement PLAN: 1. Low Back pain (M54.50) Chronic. Stable Multifactorial etiology *COMPLICATED by fibromyalgia no red flag symptom (more content not included)... Normal [facility] Comment on above: Result Comment: Elec tronically Signed By: Diony Singh DO.chanel\Date and Time Signed: 07/26/23 14:06 EST ED Note-Physicianon 07-25-19 ED Note-Physician [id number] #[id number] Normal [facility] Activated partial thrombopla stin time (aPTT) in platelet poor plasma by coagulation aOrdered By: Jacqui Samayoa on 07-22-2023 aPTT Coag (PPP) [Time] 29.6 s 25.1-36.5 [facility] Comment on above: A hematocrit value g reater than 55% may lead to inaccurate results in coagulation testing. Patients having hematocrit values >55% require a special collection tube for coagulation studies. Please contact the laboratory at [phone] for redraw instructions. B-Type Natriuretic Peptideon 07-22-2023 Natriuretic peptide B (Bld) [Mass/Vol] 67.0 pg/mL Normal 5-100 [facility] Comment on above: Result Comment: PERF ORMED BY: [place] [address] PATHOLOGIST FLASK CARRIER WENDY CLARK M.D. Performed By: #### C BC, HS TROP, BMP, PT, BNP, PTT #### [place] [id number] [facility] Bacterial blood cultureOrder ed By: Jacqui Samayoa on 07-22-2023 Bacteria identified Cx Nom (Bld) NO GROWTH 5 DAYS [facility] Bacteria identified Cx Nom (Bld) NO GROWTH 5 DAYS [facility] Basic Metabolic Panelon 02- Anion gap [Moles/Vol] 12.5 mmol/L Normal 6.0-15.0 [facility] Comment on above: Performed By: #### C BC, HS TROP, BMP, PT, BNP, PTT #### [facility] [address] Calcium [Mass/Vol] 8.7 mg/dL Normal 8.6-10.3 [facility] Comment on above: Performed By: #### C BC, HS TROP, BMP, PT, BNP, PTT #### [facility] [address] Chloride [Moles/Vol] 104 mmol/L Normal 98-107 [facility] Comment on above: Performed By: #### C BC, HS TROP, BMP, PT, BNP, PTT #### [address] CO2 [Moles/Vol] 24.1 mmol/L Normal 21.0-31.0 [facility] Comment on above: Performed By: #### C BC, HS TROP, BMP, PT, BNP, PTT #### [address] Creatinine [Mass/Vol] 0.52 mg/dL Low 0.60-1.20 [facility] Comment on above: Performed By: #### C BC, HS TROP, BMP, PT, BNP, PTT #### [place] [address] [place] Creatinine Clr Calc Pharmacy 184.90 Normal [facility] Comment on above: Result Comment: PERF ORMED BY: [place] [address] PATHOLOGIST FL[employer]RIER WENDY CLARK M.D. Performed By: #### C BC, HS TROP, BMP, PT, BNP, PTT #### [place] [address] [place] GFR/1.73 sq M.predicted MDRD (S/P/Bld) [Vol rate/Area] mL/min/{1.73_m2} Normal [facility] Comment on above: Performed By: #### C BC, HS TROP, BMP, PT, BNP, PTT #### [address] Glucose [Mass/Vol] 97 mg/dL Normal 70-100 [facility] Comment on above: Result Comment: [place] Glucose Reference Range is dependent on time and content of last meal. Glucose of more than 200 mg/dL in a nonstressed, ambulatory subject supports the diagnosis of Diabetes Mellitus. ADA recommended reference range Performed By: #### C BC, HS TROP, BMP, PT, BNP, PTT #### [address] Potassium [Moles/Vol] 3.6 mmol/L Normal 3.5-5.1 [facility] Comment on above: Performed By: #### C BC, HS TROP, BMP, PT, BNP, PTT #### [address] Sodium [Moles/Vol] 137 mmol/L Normal 136-145 [facility] Comment on above: Performed By: #### C BC, HS TROP, BMP, PT, BNP, PTT #### [address] Urea nitrogen [Mass/Vol] 6 mg/dL Low 7-25 [facility] Comment on above: Performed By: #### C BC, HS TROP, BMP, PT, BNP, PTT #### [address] Basophils Auto (Bld) [#/Vol] Ordered By: Jacqui Samayoa on 07-22-2023 Basophils (Bld) [#/Vol] 0.1 10*3/uL 0.0-0.2 [facility] Basophils/100 WBC Auto (Bld) Ordered By: Jacqui Samayoa on 07-22-2023 Basophils/100 WBC (Bld) 0.5 % . [facility] Blood Cultureon 07-22-2023 Bacteria identified Cx Nom (Bld) NO GROWTH 5 DAYS PERFORMED BY: [address] [place] [address] PATHOLOGIST FL[employer]ER WENDY CLARK M.D. Normal [facility] Comment on above: Performed By: #### C OVID19 FLU RSV, CEPHEID NEG #### [facility] [address] [place] [address] Bacteria identified Cx Nom (Bld) NO GROWTH 5 DAYS PERFORMED BY: [place] [address] PATHOLOGIST FLASK CARRIER WENDY CLARK M.D. Normal [facility] Comment on above: Performed By: #### C OVID19 FLU RSV, CEPHEID NEG #### [facility] [address] [place] [address] COVID CepheidOrdered By: Iris Samayoa on 07-22-2023 SARS-CoV-2 (COVID-19) Ab IA Ql Negative Negative [facility] Comment on above: This is a duplicate Cepheid Xpert Xpress CoV-2/Flu/RSV Plus RNA by RT-PCR result to be used for statistical tracking purpose only. SARS-CoV-2 (COVID-19) RNA CESAR+probe Ql (Unsp spec) [facility] SARS-CoV-2 (COVID-19) RNA CESAR+probe Ql (Unsp spec) [facility] COVID-19 / Flu A/B / RSV [...] or Cepheid Disclaimer revoked sooner. PERFORMED BY: [place] [address] PATHOLOGIST FLASK CARRIER WENDY CLARK M.D. Normal [facility] Comment on above: Performed By: #### C OVID19 FLU RSV, CEPHEID NEG #### [facility] [address] Calcium [Mass/volume] in Ser um or PlasmaOrdered By: Jacqui Samayoa on 07-22-2023 Calcium [Mass/Vol] 8.7 mg/dL 8.6-10.3 [facility] Carbon dioxide, total [Moles /volume] in Serum or PlasmaOrdered By: Jacqui Samayoa on 07-22-2023 CO2 [Moles/Vol] 24.1 mmol/L 21.0-31.0 [facility] Cepheid COVID PCR Negativeon 07-22-2023 SARS-CoV-2 (COVID-19) RNA CESAR+probe Ql (Unsp spec) Negative Normal Negative [facility] Comment on above: Result Comment: This is a duplicate CepSolar Flow-Throughid Xpert Xpress CoV-2/Flu/RSV Plus RNA by RT-PCR result to be used for statistical tracking purpose only. PERFORMED BY: [place] [address] PATHOLOGIST FLASK CARRIER WENDY CLARK M.D. Performed By: #### C OVID19 FLU RSV, CEPHEID NEG #### [address] Chloride [Moles/volume] in S zakia or PlasmaOrdered By: Jacqui Samayoa on 07-22-2023 Chloride [Moles/Vol] 104 mmol/L 98-107 [facility] Complete Blood Count Auto Di ffon 07-22-2023 Basophils (Bld) [#/Vol] 0.1 10*3/uL Normal 0.0-0.2 [facility] Comment on above: Result Comment: PERF ORMED BY: [place] [address] PATHOLOGIST FL[employer] CARRIER WENDY CLARK M.D. Performed By: #### C BC, HS TROP, BMP, PT, BNP, PTT #### [address] Basophils/100 WBC (Bld) 0.5 % Normal . [facility] Comment on above: Performed By: #### C BC, HS TROP, BMP, PT, BNP, PTT #### [place] [address] [place] Eosinophils (Bld) [#/Vol] 0.0 10*3/uL Normal 0.0-0.45 [facility] Comment on above: Performed By: #### C BC, HS TROP, BMP, PT, BNP, PTT #### [place] [address] [place] Eosinophils/100 WBC (Bld) 0.3 % Normal . [facility] Comment on above: Performed By: #### C BC, HS TROP, BMP, PT, BNP, PTT #### [address] Erythrocyte distribution width (RBC) [Ratio] 14.9 % Normal 11.9-15.3 [facility] Comment on above: Performed By: #### C BC, HS TROP, BMP, PT, BNP, PTT #### [address] Hematocrit (Bld) [Volume fraction] 41.0 % Normal 34.0-46.4 [facility] Comment on above: Performed By: #### C BC, HS TROP, BMP, PT, BNP, PTT #### [address] Hemoglobin (Bld) [Mass/Vol] 13.8 g/dL Normal 11.8-15.4 [facility] Comment on above: Performed By: #### C BC, HS TROP, BMP, PT, BNP, PTT #### [address] Lymphocytes (Bld) [#/Vol] 0.9 10*3/uL Low 1.00-4.8 [facility] Comment on above: Performed By: #### C BC, HS TROP, BMP, PT, BNP, PTT #### [address] Lymphocytes/100 WBC (Bld) 8.7 % Normal . [facility] Comment on above: Performed By: #### C BC, HS TROP, BMP, PT, BNP, PTT #### [address] MCH (RBC) [Entitic mass] 29.7 pg Normal 24.7-34.3 [facility] Comment on above: Performed By: #### C BC, HS TROP, BMP, PT, BNP, PTT #### [address] MCV (RBC) [Entitic vol] 88.2 fL Normal 80-100 [facility] Comment on above: Performed By: #### C BC, HS TROP, BMP, PT, BNP, PTT #### [address] Mean Corpuscular HGB Conc 33.7 g/dL Normal 32.0-35.0 [facility] Comment on above: Performed By: #### C BC, HS TROP, BMP, PT, BNP, PTT #### [address] Monocytes (Bld) [#/Vol] 0.6 10*3/uL Normal 0.0-0.8 [facility] Comment on above: Performed By: #### C BC, HS TROP, BMP, PT, BNP, PTT #### [address] Monocytes/100 WBC (Bld) 27.10 % High 0.00-20.00 [facility] Comment on above: Result Comment: For adults in ED, MDW > 20.0 may be associated with a higher risk of sepsis during the first 12 hrs of hospital admission Performed By: #### C BC, HS TROP, BMP, PT, BNP, PTT #### [address] Monocytes/100 WBC (Bld) 6.2 % Normal . [facility] Comment on above: Performed By: #### C BC, HS TROP, BMP, PT, BNP, PTT #### [address] Neutrophils (Bld) [#/Vol] 8.3 10*3/uL High 1.8-7.7 [facility] Comment on above: Performed By: #### C BC, HS TROP, BMP, PT, BNP, PTT #### [place] [address] [place] Neutrophils/100 WBC (Bld) 84.3 % Normal . [facility] Comment on above: Performed By: #### C BC, HS TROP, BMP, PT, BNP, PTT #### [address] NRBC% 0.0 /100{WBC} Normal 0-0.5 [facility] Comment on above: Performed By: #### C BC, HS TROP, BMP, PT, BNP, PTT #### [facility] [address] Platelet mean volume (Bld) [Entitic vol] 7.7 fL Normal 6.3-10.7 [facility] Comment on above: Performed By: #### C BC, HS TROP, BMP, PT, BNP, PTT #### [facility] [address] [place] [address] [place] Platelets (Bld) [#/Vol] 347 10*3/uL Normal 150-450 [facility] Comment on above: Performed By: #### C BC, HS TROP, BMP, PT, BNP, PTT #### [facility] [address] [place] [address] [place] RBC (Bld) [#/Vol] 4.64 10*6/uL Normal 3.60-5.00 [facility] Comment on above: Performed By: #### C BC, HS TROP, BMP, PT, BNP, PTT #### [facility] [address] WBC (Bld) [#/Vol] 9.9 10*3/uL Normal 3.8-11.6 [facility] Comment on above: Performed By: #### C BC, HS TROP, BMP, PT, BNP, PTT #### [address] Creatine Kinaseon 07-22-2023 CK [Catalytic activity/Vol] 37 U/L Normal 30-223 [facility] Comment on above: Performed By: #### C BC, HS TROP, BMP, PT, BNP, PTT #### [place] [address] [place] Creatine kinase [Enzymatic a ctivity/volume] in Serum or PlasmaOrdered By: Jacqui Samayoa on 07-22-2023 CK [Catalytic activity/Vol] 37 U/L 30-223 [facility] Creatinine [Mass/volume] in Serum or PlasmaOrdered By: Jacqui Samayoa on 07-22-2023 Creatinine [Mass/Vol] 0.52 mg/dL 0.60-1.20 [facility] ECG 12 lead ECGon 07-22-2023 ECG 12 lead ECG [facility] [place] [address] Electrocardiograph Report Signed Patient: Lupe Pickard MR#: [id number] : 1975 Acct:[id number] Age/Sex: 48 / F ADM Date: 07/22/23 Loc: ER Room: Type: [facility] ER Attending Dr: Ordering Provider: [...] Signed By Jacqui Samayoa DO 1452 Normal [facility] Eosinophils Auto (Bld) [#/Vo l]Ordered By: Jacqui Samayoa on 07-22-2023 Eosinophils (Bld) [#/Vol] 0.0 10*3/uL 0.0-0.45 [facility] Eosinophils/100 WBC Auto (Bl d)Ordered By: Jacqui Samayoa on 07-22-2023 Eosinophils/100 WBC (Bld) 0.3 % . [facility] Erythrocyte distribution wid th Auto (RBC) [Ratio]Ordered By: Jacqui Samayoa on 07-22-2023 Erythrocyte distribution width (RBC) [Ratio] 14.9 % 11.9-15.3 [facility] Glucose [Mass/volume] in Ser um or PlasmaOrdered By: Jacqui Samayoa on 07-22-2023 Glucose [Mass/Vol] 97 mg/dL 70-100 [facility] Comment on above: ADA recommended refe rence rangeRandom Glucose Reference Range is dependent on time and content of last meal. Glucose of more than 200 mg/dL in a nonstressed, ambulatory subject supports the diagnosis of Diabetes Mellitus. Hematocrit Auto (Bld) [Volum e fraction]Ordered By: Jacqui Samayoa on 07-22-2023 Hematocrit (Bld) [Volume fraction] 41.0 % 34.0-46.4 [facility] Hemoglobin [Mass/volume] in BloodOrdered By: Jacqui Samayoa on 07-22-2023 Hemoglobin (Bld) [Mass/Vol] 13.8 g/dL 11.8-15.4 [facility] INR in Platelet poor plasma by Coagulation assayOrdered By: Jacqui Samayoa on 07-22-2023 INR Coag (PPP) [Relative time] 1.0 {INR} [facility] Comment on above: INR Therapeutic Rang [...] on 07-22-2023 Lactate [Moles/Vol] 1.3 mmol/L 0.5-2.2 [facility] Lactic Acidon 07-22-2023 Lactate [Moles/Vol] 1.3 mmol/L Normal 0.5-2.2 [facility] Comment on above: Result Comment: PERF ORMED BY: [place] [address] PATHOLOGIST FL[employer]ER WENDY CLARK M.D. Performed By: #### C OVID19 FLU RSV, CEPHEID NEG #### [facility] [address] Leukocytes [#/volume] correc eimly for nucleated erythrocytes in Blood by Automated counOrdered By: Jacqui Samayoa on 07-22-2023 WBC corrected for nucl RBC Auto (Bld) [#/Vol] 9.9 10*3/uL 3.8-11.6 [facility] Lymphocytes Auto (Bld) [#/Vo l]Ordered By: Jacqui Samayoa on 07-22-2023 Lymphocytes (Bld) [#/Vol] 0.9 10*3/uL 1.00-4.8 [facility] Lymphocytes/100 WBC Auto (Bl d)Ordered By: Jacqui Samayoa on 07-22-2023 Lymphocytes/100 WBC (Bld) 8.7 % . [facility] MCH Auto (RBC) [Entitic mass ]Ordered By: Jacqui Samayoa on 07-22-2023 MCH (RBC) [Entitic mass] 29.7 pg 24.7-34.3 [facility] MCHC Auto (RBC) [Mass/Vol]Or dered By: Jacqui Samayoa on 07-22-2023 MCHC (RBC) [Mass/Vol] 33.7 g/dL 32.0-35.0 [facility] MCV Auto (RBC) [Entitic vol] Ordered By: Jacqui Samayoa on 07-22-2023 MCV (RBC) [Entitic vol] 88.2 fL 80-100 [facility] Monocyte distribution width [Entitic volume] in Blood by AutomatedOrdered By: Jacqui Samayoa on 07-22-2023 Monocyte distribution width Auto (Bld) [Entitic vol] 27.10 % 0.00-20.00 [facility] Comment on above: For adults in ED, MD W > 20.0 may be associated with a higher risk of sepsis during the first 12 hrs of hospital admission Monocytes Auto (Bld) [#/Vol] Ordered By: Jacqui Samayoa on 07-22-2023 Monocytes (Bld) [#/Vol] 0.6 10*3/uL 0.0-0.8 [facility] Monocytes/100 WBC Auto (Bld) Ordered By: Jacqui Samayoa on 07-22-2023 Monocytes/100 WBC (Bld) 6.2 % . [facility] Natriuretic peptide B [Mass/ Vol]Ordered By: Jacqui Samayoa on 07-22-2023 Natriuretic peptide B (Bld) [Mass/Vol] 67.0 pg/mL 5-100 [facility] Neutrophils Auto (Bld) [#/Vo l]Ordered By: Jacqui Samayoa on 07-22-2023 Neutrophils (Bld) [#/Vol] 8.3 10*3/uL 1.8-7.7 [facility] Neutrophils/100 WBC Auto (Bl d)Ordered By: Jacqui Samayoa on 07-22-2023 Neutrophils/100 WBC (Bld) 84.3 % . [facility] No Panel InformationOrdered By: Jacqui Samayoa on 07-22-2023 Estimated GFR (CKD-EPI) > 60.0 mL/Min [facility] Creatinine Clearance (Chem 184.90 [facility] Nucleated erythrocytes [Pres ence] in Blood by Automated countOrdered By: Jacqui Samayoa on 07-22-2023 Nucleated RBC Auto Ql (Bld) 0.0 /100{WBC} 0-0.5 [facility] Partial Thromboplastin Timeo n 07-22-2023 aPTT Coag (Bld) [Time] 29.6 s Normal 25.1-36.5 [facility] Comment on above: Result Comment: A he matocrit value greater than 55% may lead to inaccurate results in coagulation testing. Patients having hematocrit values >55% require a special collection tube for coagulation studies. Please contact the laboratory at [phone] for redraw instructions. PERFORMED BY: [place] [address] PATHOLOGIST [employer]ER WENDY CLARK M.D. Performed By: #### C BC, HS TROP, BMP, PT, BNP, PTT #### [address] Platelet mean volume Auto (B ld) [Entitic vol]Ordered By: Jacqui Samayoa on 07-22-2023 Platelet mean volume (Bld) [Entitic vol] 7.7 fL 6.3-10.7 [facility] Platelets Auto (Bld) [#/Vol] Ordered By: Jacqui Samayoa on 07-22-2023 Platelets (Bld) [#/Vol] 347 10*3/uL 150-450 [facility] Potassium [Moles/volume] in Serum or PlasmaOrdered By: Jacqui Samayoa on 07-22-2023 Potassium [Moles/Vol] 3.6 mmol/L 3.5-5.1 [facility] Prothrombin Time INRon 07-22 INR Coag (PPP) [Relative time] 1.0 {INR} Normal [facility] Comment on above: Result Comment: INR Therapeutic [...] - 4.5 Performed By: #### C BC, HS TROP, BMP, PT, BNP, PTT #### [facility] [address] PT Coag (PPP) [Time] 11.6 s Normal 9.0-12.9 [facility] Comment on above: Result Comment: A matocrit value greater than 55% may lead to inaccurate results in coagulation testing. Patients having hematocrit values >55% require a special collection tube for coagulation studies. Please contact the laboratory at [phone] for redraw instructions. Performed By: #### C BC, HS TROP, BMP, PT, BNP, PTT #### [facility] [address] [id number] [facility] Prothrombin time (PT)Ordered By: Jacqui Samayoa on 07-22-2023 PT Coag (PPP) [Time] 11.6 s 9.0-12.9 [facility] Comment on above: A hematocrit value g reater than 55% may lead to inaccurate results in coagulation testing. Patients having hematocrit values >55% require a special collection tube for coagulation studies. Please contact the laboratory at [phone] for redraw instructions. RBC Auto (Bld) [#/Vol]Ordere d By: Jacqui Samayoa on 07-22-2023 RBC (Bld) [#/Vol] 4.64 10*6/uL 3.60-5.00 [facility] Serum or plasma anion gap de terminationOrdered By: Jacqui Samayoa on 07-22-2023 Anion gap [Moles/Vol] 12.5 mmol/L 6.0-15.0 [facility] Sodium [Moles/volume] in Ser um or PlasmaOrdered By: Jacqui Samayoa on 07-22-2023 Sodium [Moles/Vol] 137 mmol/L 136-145 [facility] Troponin I High Sensitivityo n 07-22-2023 Troponin I High Sensitivity < 2.3 Normal 0.0-15.0 [facility] Comment on above: Result Comment: PERF ORMED BY: [place] [address] PATHOLOGIST FLASK CARRIER WENDY CLARK M.D. Performed By: #### C BC, HS TROP, BMP, PT, BNP, PTT #### [address] Troponin I.cardiac [Mass/vol ume] in Serum or Plasma by Detection limit <= 0.01 ng/Ordered By: Jacqui Samayoa on 07-22-2023 Troponin I.cardiac DL <= 0.01 ng/mL [Mass/Vol] < 2.3 pg/mL 0.0-15.0 [facility] Urea nitrogen [Mass/volume] in Serum or PlasmaOrdered By: Jacqui Samayoa on 07-22-2023 Urea nitrogen [Mass/Vol] 6 mg/dL 7-25 [facility] WBC Auto (Bld) [#/Vol]Ordere d By: Jacqui Samayoa on 07-22-2023 WBC (Bld) [#/Vol] 9.9 10*3/uL 3.8-11.6 [facility] XR chest 2V*on 07-22-2023 XR chest 2V* [facility] [address] [place] [address] [place] [address] XRay Report Signed Patient: Lupe Pickard MR#: [id number] : 1975 Acct:[id number] Age/Sex: 48 / F ADM Date: 07/22/23 Loc: ER Room: Type: [facility] ER Attending Dr: Copies to: Jacqui Samayoa [...] Ernie Roper M.D.07/22/2023 8:46 AM Dictation Location: [place] [address] Transcribed By: [facility] 07/22/23 0846 Dictated By: Ernie Roper II, MD 07/22/23 0844 Signed By: 07/22/2346 Normal [facility] CNPCaroline 07-08-2023 CNPN Telephone (RHEUMN) LUPE PICKARD ([id number]) 1975 F Date Time Provider Department 07/08/23 STEPHIE BRAMBILA RHEUMN During your visit today, we recorded the [...] times daily. - FE FUMARATE/CA CARB/VITAMIN D3 ([id number] US FUMARATE ORAL) Take by mouth. - [...] Encounter Status:Closed by STEPHIE BRAMBILA on 07/08/23 Normal [facility] COVID Quick Testingon 2023 Result Positive [employer] Other Quick Strepon 07-08-2023 S. pyogenes Org specific cx Ql (Throat) Positive [employer] Other Quick Strep [employer] Other Family Medicine Office/Clini c Noteon 07-01-2023 Family Medicine Office/Clinic Note Chief Complaint OMT HPI Staff Lupe Pickard 48 presents today for neck and back and medications complaints of _Patient here today to F/U Neck and back pain ,asking about Tumeric and probiotoic Pain characteristics: Pain location:neck/ back Intensity:5/10 Onset:years Medication used:norco Opioids prescribed:[facility] [facility] handles Medication agreement UTD: _ Urine drug screen performed:_ History of Present Illness 48 Years old Female here to f/u for NECK PAIN Social: The patient is in a long-term relationship with Katie; more than ten years The patient is not currently working; 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 Still interested in stopping Huger at some time. Is interested in medical [...] cervical radicu (more content not included)... Normal [facility] Comment on above: Result Comment: Elec tronically Signed By: Diony Singh DO\Date and Time Signed: 07/01/23 19:12 EST Ambulatory [...] questions or concerns acetaminophen (Tylenol) acetaminophen-hydroc odone (Huger 5/325 Tab) aspirin (aspirin 81 mg oral [...] PM EST With: Diony Singh DO Where: [facility] [address] [place] [address]-\.br\ Medications\.br\ What How Much When Why Instructions\.br\ Unchanged acetaminophen (Tylenol) Contact prescribing physician if questions or concerns \.br\ Unchanged acetaminophen-hyd rocodone (Huger 5/ 325 Tab) 2 Tablets Contact prescribing [...] you which one to use.\.br\ ? \.br\ [facility] Patient Educationon 06-28-19 Patient Education Physical Medicine [...] provider. Document Revised: 03/18/2021 Document Reviewed: 03/18/2021 [employer] Patient Education ? 2022 [employer] [facility] Lo 05-24-2023 SAGE Telephone (ADRY) LUPE PICKARD ([id number]) 1975 F Date Time Provider Department 05/24/23 [...] times daily. - FE FUMARATE/CA CARB/VITAMIN D3 ([id number] US FUMARATE ORAL) Take by mouth. - [...] Status:Closed by STEPHIE BRAMBILA on 05/24/23 Normal [facility] C3 SerPl-mCncon 05-19-2023 Complement C3 [Mass/Vol] 128 mg/dL Normal 86-166 [facility] Comment on above: Order Comment: Speci men Type: BLOOD SPECIMEN Ordering Facility: [facility] Address: [address] [place] [address] Performed By: #### V ITB6 #### [facility] [id number] [address] [place] [address] C4 SerPl-mCncon 05-19-2023 Complement C4 [Mass/Vol] 32 mg/dL Normal 13-46 [facility] Comment on above: Order Comment: Speci men Type: BLOOD SPECIMEN Ordering Facility: [facility] Address: [address] [place] [address] Performed By: #### V ITB6 #### [facility] CLIA [id number] [address] [place] [address] CBC W Auto Differential pane l (Bld)on 05-19-2023 Basophils (Bld) [#/Vol] 0.03 10*3/uL Normal <0.11 [facility] Comment on above: Order Comment: Speci men Type: BLOOD SPECIMEN Ordering Facility: [facility] Address: [address] [place] [address] Performed By: #### V ITB6 #### [facility] CLIA [id number] [address] [place] [address] Basophils/100 WBC (Bld) 0.3 % Normal [facility] Comment on above: Order Comment: Speci men Type: BLOOD SPECIMEN Ordering Facility: [facility] Address: [address] [place] [address] Performed By: #### V ITB6 #### [facility] [id number] [address] [place] [address] Differential cell count method Nom (Bld) Auto Normal [facility] Comment on above: Order Comment: Speci men Type: BLOOD SPECIMEN Ordering Facility: [facility] Address: [address] [place] [address] Performed By: #### V ITB6 #### [facility] [id number] [address] [place] [address] Eosinophils (Bld) [#/Vol] 0.09 10*3/uL Normal <0.46 [facility] Comment on above: Order Comment: Speci men Type: BLOOD SPECIMEN Ordering Facility: [facility] Address: [address] [place] [address] Performed By: #### V ITB6 #### [facility] CLIA [id number] [address] [place] [address] Eosinophils/100 WBC (Bld) 0.8 % Normal [facility] Comment on above: Order Comment: Speci men Type: BLOOD SPECIMEN Ordering Facility: [facility] Address: [address] [place] [address] Performed By: #### V ITB6 #### [facility] CLIA [id number] [address] [place] [address] Erythrocyte distribution width (RBC) [Ratio] 14.7 % Normal 11.5-15.0 [facility] Comment on above: Order Comment: Speci men Type: BLOOD SPECIMEN Ordering Facility: [facility] Address: [address] [place] [address] Performed By: #### V ITB6 #### [facility] CLIA [id number] [address] [place] [address] Hematocrit (Bld) [Volume fraction] 42.6 % Normal 36.0-46.0 [facility] Comment on above: Order Comment: Speci men Type: BLOOD SPECIMEN Ordering Facility: [facility] Address: [address] [place] [address] Performed By: #### V ITB6 #### [facility] [id number] [address] [place] [address] Hemoglobin (Bld) [Mass/Vol] 14.2 g/dL Normal 11.5-15.5 [facility] Comment on above: Order Comment: Speci men Type: BLOOD SPECIMEN Ordering Facility: [facility] Address: [address] [place] [address] Performed By: #### V ITB6 #### [facility] [place] [id number] [address] [place] [address] Immature granulocytes (Bld) [#/Vol] 0.04 10*3/uL Normal <0.10 [facility] Comment on above: Order Comment: Speci men Type: BLOOD SPECIMEN Ordering Facility: [facility] Address: [address] [place] [address] Performed By: #### V ITB6 #### [facility] CLIA [id number] [address] [place] [address] Immature granulocytes/100 WBC (Bld) 0.4 % Normal [facility] Comment on above: Order Comment: Speci men Type: BLOOD SPECIMEN Ordering Facility: [facility] Address: [address] [place] [address] Performed By: #### V ITB6 #### [facility] CLIA [id number] [address] [place] [address] Lymphocytes (Bld) [#/Vol] 3.03 10*3/uL Normal 1.00-4.00 [facility] Comment on above: Order Comment: Speci men Type: BLOOD SPECIMEN Ordering Facility: [facility] Address: [address] [place] [address] Performed By: #### V ITB6 #### [facility] [id number] [address] [place] [address] Lymphocytes/100 WBC (Bld) 28.3 % Normal [facility] Comment on above: Order Comment: Speci men Type: BLOOD SPECIMEN Ordering Facility: [facility] Address: [address] [place] [address] Performed By: #### V ITB6 #### [facility] [id number] [address] [place] [address] MCH (RBC) [Entitic mass] 29.2 pg Normal 26.0-34.0 [facility] Comment on above: Order Comment: Speci men Type: BLOOD SPECIMEN Ordering Facility: [facility] Address: [address] [place] [address] Performed By: #### V ITB6 #### [facility] [id number] [address] [place] [address] MCHC (RBC) [Mass/Vol] 33.3 g/dL Normal 30.5-36.0 [facility] Comment on above: Order Comment: Speci men Type: BLOOD SPECIMEN Ordering Facility: [facility] Address: [address] [place] [address] Performed By: #### V ITB6 #### [facility] [id number] [address] [place] [address] MCV (RBC) [Entitic vol] 87.5 fL Normal 80.0-100.0 [facility] Comment on above: Order Comment: Speci men Type: BLOOD SPECIMEN Ordering Facility: [facility] Address: [address] [place] [address] Performed By: #### V ITB6 #### [facility] CLIA [id number] [address] [place] [address] Monocytes (Bld) [#/Vol] 0.49 10*3/uL Normal <0.87 [facility] Comment on above: Order Comment: Speci men Type: BLOOD SPECIMEN Ordering Facility: [facility] Address: [address] [place] [address] Performed By: #### V ITB6 #### [facility] CLIA [id number] [address] [place] [address] Monocytes/100 WBC (Bld) 4.6 % Normal [facility] Comment on above: Order Comment: Speci men Type: BLOOD SPECIMEN Ordering Facility: [facility] Address: [address] [place] [address] Performed By: #### V ITB6 #### [facility] CLIA [id number] [address] [place] [address] Neutrophils (Bld) [#/Vol] 7.01 10*3/uL Normal 1.45-7.50 [facility] Comment on above: Order Comment: Speci men Type: BLOOD SPECIMEN Ordering Facility: [facility] Address: [address] [place] [address] Performed By: #### V ITB6 #### [facility] CLIA [id number] [address] [place] [address] Neutrophils/100 WBC (Bld) 65.6 % Normal [facility] Comment on above: Order Comment: Speci men Type: BLOOD SPECIMEN Ordering Facility: [facility] Address: [address] [place] [address] Performed By: #### V ITB6 #### [facility] CLIA [id number] [address] [place] [address] Nucleated RBC (Bld) [#/Vol] 10*3/uL Normal <0.01 [facility] Comment on above: Order Comment: Speci men Type: BLOOD SPECIMEN Ordering Facility: [facility] Address: [address] [place] [address] Performed By: #### V ITB6 #### [facility] CLIA [id number] [address] [place] [address] Nucleated RBC/100 WBC (Bld) [Ratio] 0.0 /100 WBC Normal [facility] Comment on above: Order Comment: Speci men Type: BLOOD SPECIMEN Ordering Facility: [facility] Address: [address] [place] [address] Performed By: #### V ITB6 #### [facility] CLIA [id number] [address] [place] [address] Platelet mean volume (Bld) [Entitic vol] 9.1 fL Normal 9.0-12.7 [facility] Comment on above: Order Comment: Speci men Type: BLOOD SPECIMEN Ordering Facility: [facility] Address: [address] [place] [address] Performed By: #### V ITB6 #### [facility] CLIA [id number] [address] [place] [address] Platelets (Bld) [#/Vol] 364 10*3/uL Normal 150-400 [facility] Comment on above: Order Comment: Speci men Type: BLOOD SPECIMEN Ordering Facility: [facility] Address: [address] [place] [address] Performed By: #### V ITB6 #### [facility] [place] [id number] [address] [place] [address] RBC (Bld) [#/Vol] 4.87 10*6/uL Normal 3.90-5.20 [facility] Comment on above: Order Comment: Speci men Type: BLOOD SPECIMEN Ordering Facility: [facility] Address: [address] [place] [address] Performed By: #### V ITB6 #### [facility] CLIA [id number] [address] [place] [address] WBC (Bld) [#/Vol] 10.69 10*3/uL Normal 3.70-11.00 [facility] Comment on above: Order Comment: Speci men Type: BLOOD SPECIMEN Ordering Facility: [facility] Address: [address] [place] [address] Performed By: #### V ITB6 #### [facility] CLIA [id number] [address] [place] [address] Centromere Ab IF Ql (S)on Centromere Ab Qn (S) <0.2 Normal <1.0 [facility] Comment on above: Order Comment: Speci men Type: BLOOD SPECIMEN Ordering Facility: [facility] Address: [address] [place] [address] Result Comment: Anti -centromere antibody is used as in aid in diagnosis of systemic sclerosis. Clinical correlation is required. Test Methodology: Multiplex flow immunoassay. Performed By: #### 5 1775-5, 25786-9, 54345-3, 46593-7, 54263-4, 93621-0, 74745-8, 50166-7 #### [facility] CLIA [id number] [address] [place] [address] [place] CENTROMERE AB QUAL Negative Normal Negative [facility] Comment on above: Order Comment: Speci men Type: BLOOD SPECIMEN Ordering Facility: [facility] Address: [address] [place] [address] Performed By: #### 5 1775-5, 53369-0, 87319-4, 82074-6, 72172-5, 00019-5, 05497-2, 01978-5 #### [facility] CLIA [id number] [address] [place] [address] [place] Chromatin Ab Qnon 05-19-2023 CHROMATIN AB QUAL Negative Normal Negative [facility] Comment on above: Order Comment: Speci men Type: BLOOD SPECIMEN Ordering Facility: [facility] Address: [address] [place] [address] Performed By: #### 5 1775-5, 49688-1, 80548-6, 51575-1, 35767-7, 82253-7, 88816-2, 45456-1 #### [facility] CLIA [id number] [address] [place] [address] [place] Chromatin Ab SerPl-aCncon Chromatin Ab Qn <0.2 Normal <1.0 [facility] Comment on above: Order Comment: Speci men Type: BLOOD SPECIMEN Ordering Facility: [facility] Address: [address] [place] [address] Result Comment: Test Methodology: Multiplex flow immunoassay. Performed By: #### 5 1775-5, 22193-0, 89859-6, 75676-7, 05995-7, 47152-4, 58034-0, 95919-7 #### [facility] CLIA [id number] [address] [facility] [address] [id number], [place] [address] [place] Comprehensive metabolic 2000 panelon 05-19-2023 Albumin [Mass/Vol] 4.1 g/dL Normal 3.9-4.9 [facility] Comment on above: Order Comment: Speci men Type: BLOOD SPECIMEN Ordering Facility: [facility] Address: [address] [place] [address] Performed By: #### V ITB6 #### [facility] CLIA [id number] [address] [place] [address] ALP [Catalytic activity/Vol] 62 U/L Normal 34-123 [facility] Comment on above: Order Comment: Speci men Type: BLOOD SPECIMEN Ordering Facility: [facility] Address: [address] [place] [address] Performed By: #### V ITB6 #### [facility] CLIA [id number] [address] [place] [address] ALT [Catalytic activity/Vol] 19 U/L Normal 7-38 [facility] Comment on above: Order Comment: Speci men Type: BLOOD SPECIMEN Ordering Facility: [facility] Address: [address] [place] [address] Performed By: #### V ITB6 #### [facility] CLIA [id number] [address] [place] [address] Anion gap [Moles/Vol] 9 mmol/L Normal 9-18 [facility] Comment on above: Order Comment: Speci men Type: BLOOD SPECIMEN Ordering Facility: [facility] Address: [address] [place] [address] Performed By: #### V ITB6 #### [facility] CLIA [id number] [address] [place] [address] AST [Catalytic activity/Vol] 10 U/L Low 13-35 [facility] Comment on above: Order Comment: Speci men Type: BLOOD SPECIMEN Ordering Facility: [facility] Address: [address] [place] [address] Performed By: #### V ITB6 #### [facility] CLIA [id number] [address] [place] [address] Bilirubin [Mass/Vol] 0.2 mg/dL Normal 0.2-1.3 [facility] Comment on above: Order Comment: Speci men Type: BLOOD SPECIMEN Ordering Facility: [facility] Address: [address] [place] [address] Performed By: #### V ITB6 #### [facility] CLIA [id number] [address] [place] [address] Calcium [Mass/Vol] 9.2 mg/dL Normal 8.5-10.2 [facility] Comment on above: Order Comment: Speci men Type: BLOOD SPECIMEN Ordering Facility: [facility] Address: [address] [place] [address] Performed By: #### V ITB6 #### [facility] CLIA [id number] [address] [place] [address] Chloride [Moles/Vol] 106 mmol/L High 97-105 [facility] Comment on above: Order Comment: Speci men Type: BLOOD SPECIMEN Ordering Facility: [facility] Address: [address] [place] [address] Performed By: #### V ITB6 #### [facility] CLIA [id number] [address] [place] [address] CO2 [Moles/Vol] 27 mmol/L Normal 22-30 [facility] Comment on above: Order Comment: Speci men Type: BLOOD SPECIMEN Ordering Facility: [facility] Address: [address] [place] [address] Performed By: #### V ITB6 #### [facility] CLIA [id number] [address] [place] [address] Creatinine [Mass/Vol] 0.65 mg/dL Normal 0.58-0.96 [facility] Comment on above: Order Comment: Speci men Type: BLOOD SPECIMEN Ordering Facility: [facility] Address: [address] [place] [address] Performed By: #### V ITB6 #### [facility] [id number] [address] [place] [address] Creatinine and Glomerular filtration rate.predicted panel (S/P/Bld) 110 mL/min/1.73m??? Normal >=60 [facility] Comment on above: Order Comment: Speci men Type: BLOOD SPECIMEN Ordering Facility: [facility] Address: [address] [place] [address] Result Comment: Anne mated Glomerular Filtration Rate [...] GFR. Performed By: #### V ITB6 #### [facility] [id number] [address] [place] [address] Glucose [Mass/Vol] 105 mg/dL High 74-99 [facility] Comment on above: Order Comment: Speci denisa Type: BLOOD SPECIMEN Ordering Facility: [facility] Address: [address] [place] [address] Result Comment: The [place] Diabetes Association (ADA) provides guidance for cutoff [...] Standards of Medical Care in Diabetes 2016, [place] Diabetes Association. Diabetes Care. 2016.39(Suppl 1). Performed By: #### V ITB6 #### [facility] [id number] [address] [place] [address] Potassium [Moles/Vol] 4.3 mmol/L Normal 3.7-5.1 [facility] Comment on above: Order Comment: Speci men Type: BLOOD SPECIMEN Ordering Facility: [facility] Address: [address] [place] [address] Performed By: #### V ITB6 #### [facility] CLIA [id number] [address] [place] [address] Protein [Mass/Vol] 6.7 g/dL Normal 6.3-8.0 [facility] Comment on above: Order Comment: Speci men Type: BLOOD SPECIMEN Ordering Facility: [facility] Address: [address] [place] [address] Performed By: #### V ITB6 #### [facility] CLIA [id number] [address] [place] [address] Sodium [Moles/Vol] 142 mmol/L Normal 136-144 [facility] Comment on above: Order Comment: Speci men Type: BLOOD SPECIMEN Ordering Facility: [facility] Address: [address] [place] [address] Performed By: #### V ITB6 #### [facility] CLIA [id number] [address] [place] [address] Urea nitrogen [Mass/Vol] 17 mg/dL Normal 7-21 [facility] Comment on above: Order Comment: Speci men Type: BLOOD SPECIMEN Ordering Facility: [facility] Address: [address] [place] [address] Performed By: #### V ITB6 #### [facility] CLIA [id number] [address] [place] [address] DNA ANTIBODY DS BLDon 2022 DNA ANTIBODY 25 IU/mL Normal <=200 [facility] Comment on above: Order Comment: Speci men Type: BLOOD SPECIMEN Ordering Facility: [facility] Address: [address] [place] [address] Performed By: #### V ITB6 #### [facility] CLIA [id number] [address] [place] [address] DNA ANTIBODY QUALITATIVE INTERPRETATION Negative Normal Negative [facility] Comment on above: Order Comment: Speci men Type: BLOOD SPECIMEN Ordering Facility: [facility] Address: [address] [place] [address] Performed By: #### V ITB6 #### [facility] CLIA [id number] [address] [place] [address] MARCIO Jo1 Ab Ser-aCncon 2022 Elsa-1 extractable nuclear Ab Qn (S) <0.2 Normal <1.0 [facility] Comment on above: Order Comment: Speci men Type: BLOOD SPECIMEN Ordering Facility: [facility] Address: [address] [place] [address] Performed By: #### 5 1775-5, 83367-5, 59210-8, 59180-9, 36046-8, 66827-4, 42764-8, 28124-2 #### [facility] CLIA [id number] [address] [place] [address] [place] MARCIO PATIENT CARE SPECIALIST Ab Ser-aCncon 2022 Ribonucleoprotein extractable nuclear Ab Qn (S) <0.2 Normal <1.0 [facility] Comment on above: Order Comment: Speci men Type: BLOOD SPECIMEN Ordering Facility: [facility] Address: [address] [place] [address] Performed By: #### 5 1775-5, 73716-5, 71945-6, 83380-7, 03449-3, 51778-5, 26800-8, 21797-3 #### [facility] CLIA [id number] [address] [place] [address] [place] Ribonucleoprotein extractable nuclear Ab Qn (S) 0.2 AI Normal <1.0 [facility] Comment on above: Order Comment: Speci men Type: BLOOD SPECIMEN Ordering Facility: [facility] Address: [address] [place] [address] Performed By: #### V ITB6 #### [facility] CLIA [id number] [address] [place] [address] MARCIO SM IgG Ser-aCncon 2022 Lobo extractable nuclear IgG Qn (S) <0.2 Normal <1.0 [facility] Comment on above: Order Comment: Speci men Type: BLOOD SPECIMEN Ordering Facility: [facility] Address: [address] [place] [address] Performed By: #### 5 5-5, 89680-3, 28746-5, 14016-7, 26004-5, 43899-4, 89823-6, 12014-4 #### [facility] CLIA [id number] [address] [place] [address] [place] MARCIO SS-A Ab Ser-aCncon 05-19 Sjogrens syndrome-A extractable nuclear Ab Qn (S) <0.2 Normal <1.0 [facility] Comment on above: Order Comment: Speci men Type: BLOOD SPECIMEN Ordering Facility: [facility] Address: [address] [place] [address] Result Comment: Test Methodology: Multiplex flow immunoassay. Performed By: #### 5 1774-5, 06196-7, 65340-3, 54629-7, 92858-5, 34671-4, 34636-8, 03290-3 #### [facility] CLIA [id number] [address] [place] [address] [place] MARCIO SS-B Ab Ser-aCncon 05-19 Sjogrens syndrome-B extractable nuclear Ab Qn (S) <0.2 Normal <1.0 [facility] Comment on above: Order Comment: Speci men Type: BLOOD SPECIMEN Ordering Facility: [facility] Address: [address] [place] [address] Result Comment: Anti -SSB (anti-La) antibody is used as an aid in diagnosis of a variety of systemic autoimmune diseases, especially for Sjogren's syndrome and systemic lupus erythematosus. Clinical correlation is required. Test Methodology: Multiplex flow immunoassay. Performed By: #### 5 1775-5, 27093-0, 09769-5, 85695-6, 93260-4, 35124-6, 90805-7, 89754-9 #### [facility] CLIA [id number] [address] [place] [id number] [place] [facility] Folate [Mass/Vol] 13.0 ng/mL Normal >4.7 [facility] Comment on above: Order Comment: Nicky crawley Type: BLOOD SPECIMEN Ordering Facility: [facility] Address: [address] [place] [address] Performed By: #### V ITB6 #### [facility] CLIA [id number] [address] [place] [address] Elsa-1 extractable nuclear Ab Qn (S)on 05-19-2023 ELSA 1 ANTIBODY QUAL Negative Normal Negative [facility] Comment on above: Order Comment: Nicky crawley Type: BLOOD SPECIMEN Ordering Facility: [facility] Address: [address] [place] [address] Result Comment: Anti -ELSA-1 antibody is used as an aid in diagnosis of polymyositis and dermatomyositis especially with pulmonary involvement. A negative result cannot rule out polymyositis or dermatomyositis. Clinical correlation is required. Test Methodology: Multiplex flow immunoassay. Performed By: #### 5 1775-5, 76650-5, 92277-4, 96342-9, 71099-5, 26175-2, 97989-6, 49371-8 #### [facility] CLIA [id number] [address] [place] [address] [place] Ribonucleoprotein extractabl e nuclear Ab Qn (S)on 05-19-2023 ANTI-PATIENT CARE SPECIALIST QUAL Negative Normal Negative [facility] Comment on above: Order Comment: Nicky crawley Type: BLOOD SPECIMEN Ordering Facility: [facility] Address: [address] [place] [address] Performed By: #### V ITB6 #### [facility] CLIA [id number] [address] [place] [address] RIBOSOMAL PATIENT CARE SPECIALIST QUAL Negative Normal Negative [facility] Comment on above: Order Comment: Nicky crawley Type: BLOOD SPECIMEN Ordering Facility: [facility] Address: [address] [place] [address] Result Comment: Anti -Ribosomal RNA (Ribosomal P) antibody is used as an aid in diagnosis of systemic autoimmune diseases especially systemic lupus erythematosus and mixed connective tissue disease. Cross-reactivity with Anti-lobo antibody is not uncommon. Clinical correlation is required. Test Methodology: Multiplex flow immunoassay. Performed By: #### 5 1775-5, 83162-5, 14417-6, 41153-6, 97940-9, 64132-4, 22497-8, 27812-0 #### [facility] CLIA [id number] [address] [place] [address] [place] SCL-70 extractable nuclear I gG IA Qn (S)on 05-19-2023 SCLERODERMA AB QUAL Negative Normal Negative [facility] Comment on above: Order Comment: Nicky crawley Type: BLOOD SPECIMEN Ordering Facility: [facility] Address: [address] [place] [address] Performed By: #### 5 1775-5, 92502-1, 69008-5, 00775-0, 72027-8, 90170-6, 13976-1, 12622-1 #### [facility] CLIA [id number] [facility] [place] [address] [place] SCLERODERMA IGG AB <0.2 Normal <1.0 [facility] Comment on above: Order Comment: Nicky crawley Type: BLOOD SPECIMEN Ordering Facility: [facility] Address: [address] [place] [address] Result Comment: Scl- 70/Scleroderma antibody test is used as an aid in diagnosis of systemic sclerosis especially the diffuse cutaneous form. A negative result cannot rule out systemic sclerosis. The final interpretation should consider clinical picture and other test results such as anti-centromere antibody. Test Methodology: Multiplex flow immunoassay. Performed By: #### 5 1775-5, 25712-6, 53489-0, 78821-9, 21730-1, 19414-5, 90492-0, 61579-1 #### [facility] CLIA [id number] [address] [place] [id number] [place] Sjogrens syndrome-A extracta ble nuclear Ab Qn (S)on 05-19-2023 SSA ANTIBODY QUAL Negative Normal Negative [facility] Comment on above: Order Comment: Speci men Type: BLOOD SPECIMEN Ordering Facility: [facility] Address: [address] [place] [address] Performed By: #### 5 1775-5, 64535-2, 34376-0, 52890-9, 55892-6, 59660-6, 58143-5, 81194-7 #### [facility] CLIA [id number] [address] [place] [address] [place] Sjogrens syndrome-B extracta ble nuclear Ab Qn (S)on 05-19-2023 SSB ANTIBODY QUAL Negative Normal Negative [facility] Comment on above: Order Comment: Speci men Type: BLOOD SPECIMEN Ordering Facility: [facility] Address: [address] [place] [address] Performed By: #### 5 1775-5, 95693-3, 88442-7, 02475-3, 70288-9, 08562-4, 90771-6, 69136-2 #### [facility] CLIA [id number] [address] [place] [address] [place] Lobo extractable nuclear Ig G Qn (S)on 05-19-2023 SM ANTIBODY QUAL Negative Normal Negative [facility] Comment on above: Order Comment: Speci men Type: BLOOD SPECIMEN Ordering Facility: [facility] Address: [address] [place] [address] Result Comment: Anti -Sm (Lobo) antibody is used as an aid in diagnosis of systemic lupus erythematosus and its presence is associated with renal disease. A negative result cannot rule out systemic lupus erythematosus. Clinical correlation is required. Test Methodology: Multiplex flow immunoassay. Performed By: #### 5 1775-5, 37445-5, 89233-4, 55747-5, 86954-2, 02285-8, 93865-6, 17461-9 #### [facility] CLIA [id number] [address] [place] [id number] [place] VITAMIN B6/PYRIDOXINon 05-19 VITAMIN B6 169.1 nmol/L High 20.0-125.0 [facility] Comment on above: Order Comment: Nicky crawley Type: BLOOD SPECIMEN Ordering Facility: [facility] Address: [place] [address] Result Comment: INTE RPRETIVE INFORMATION: Vitamin B6 (Pyridoxal 5-Phosphate) Pyridoxal 5'-phosphate measured in a specimen collected following an 8-hour or overnight fast accurately indicates vitamin B6 nutritional status. Non-fasting specimen concentration reflects recent vitamin intake. This test was developed and its performance characteristics determined by [facility]. It has not been cleared or approved by the US Food and Drug Administration. This test was performed in a CLIA certified laboratory and is intended for clinical purposes. Performed By: [facility] [address] [place] [address] Curbing Stonecutter: Greg Wong MD, PhD CLIA Number: [id number] Performed By: #### V ITB6 #### [facility] CLIA [id number] [address] [place] [address] Vit B12 SerPl-ncon 023 Cobalamin (Vitamin B12) [Mass/Vol] 412 pg/mL Normal 232-1245 [facility] Comment on above: Order Comment: Nicky crawley Type: BLOOD SPECIMEN Ordering Facility: [facility] Address: [address] [place] [address] Performed By: #### V ITB6 #### [facility] CLIA [id number] [address] [place] [address] CNOVon 05-17-2023 CNOV Office Visit (ADRY) LUPE PICKARD ([id number]) 1975 F Date Time Provider Department 05/17/23 2:00 PM STEPHIE BRAMBILA During your visit today, we recorded the following information about you: Pulse Respiration Blood pressure Weight 70/minute 18/minute 144/81 121.8 kg Stephie Brambila MD 05/17/2023 2:50 PM Signed Rheumatology Clinic Date of Service: 05/17/2023 Patient: Lupe Pickard Medical Record: [id number] Last Rheumatology visit: None at [facility] History of Present Illness Lupe Pickard is [...] uses heat/ice, massage which helps. She takes Huger 5mg that does not do much for [...] 10 years. 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 Family History: No known FH of autoimmune [...] mg ta (more content not included)... Normal [facility] Office/Clini c Noteon 05-10-2023 Family Medicine Office/Clinic [...] taking BID still takes Tylenol BID and Huger BID - inconsistent benefit - feels her body is getting used to it and it is helping less. still interested in stopping Huger at some point. Waiting for marijuana to become available again. neck pain 7/10 today localized to right side described as constant ache no aggravating or relieving factors. Huger/Tylenol provide inconsistent benefit. helps for a little [...] of anxiety, such as racing heart. follows w/ Radha Mcintosh, psychiatry - sees about once [...] few times a month. increased CRP. seeing process expert next Tuesday colonoscopy done at [facility] on - note unavailable from last note: [...] movement n (more content not included)... Normal [facility] Comment on above: Result Comment: Elec [...] them backward. ? 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 [...] pain medicine, or muscle relaxants. ? Take rupl-crl-ucbhuer and prescription medicines only as told by your doctor. ? Ask your doctor if the medicine prescribed to you: ? Requires you to avoid driving or using machinery. ? Can cause trouble pooping (constipation). You may need to take these actions to prevent or treat trouble pooping: ? Drink enough fluid to keep your pee (urine) pale yellow. ? Take tbaw-wwj-pvanogw or prescription medicines. ? Eat foods that [...] provider. Document Revised: 06/25/2020 Document Reviewed: 06/25/2020 [employer] Patient Education ? 2022 [employer] [facility] Family Medicine Office/Clini c Noteon 04-15-2023 Family [...] no change to the rash seen in [facility] urgent care on 03/27 - rec'd a [...] --> recommend Driven to Distraction Future Appointments [facility] Quinn Appt. Date: 05/03/2023 1:00 PM Scheduled Provider: Diony Singh DO [address] [place], [phone] Phone: -- Fax: -- [facility] BRIAN [place] Appt. Date: 11/16/2023 1:00 PM [...] 1 month (more content not included)... Normal [facility] Comment on above: Result Comment: Elec tronically Signed By: Diony Singh DO\.br\Date and Time Signed: 04/15/23 13:41 EST Consent for Treatmenton 03-30 Consent for Treatment [id number] #1.00TIFF [facility] Heart and Vascular Office/Cl inic Noteon 04-11-2023 [...] with voice recognition artificial intelligence software, specifically Digiscend, Bloxy and or righTune. Substitutions may have occurred due to the inherent limitations of voice recognition and artificial intelligence software. Follow-up With When Contact Information SANTY PELAYO, Franklyn Arias Within 3 months [address] [place] [address]- [phone] Additional Instructions: Problem List/Past Medical History Ongoing Anxiety Atopic dermatitis Autoimmune disorder BMI 40.0-44.9, adult Butterfly rash Chronic bilateral low back pain Chronic insomnia Diffuse arthralgia Establishing care with new doctor, encounter for Exercise counseling Fibromyalgia GERD (gastroesophageal reflux disease) Medication management Moderate recurrent major depression Morbid obesity Nutritional counseling Other specified hypothyroidism Overactive bladder Palpitati (more content not included)... Normal [facility] Comment on above: Result Comment: Elec tronically Signed By: CHRISTOPHE CLINE, Roula L\.br\Date and Time Signed: 04/11/23 11:37 EST\.br\Electronically Co-Signed By: Brayan PELAYO, Owen Brown\.br\Date and Time Co-Signed: 04/24/23 21:03 EST Outside Recordson 04-11-2023 Outside Records [id number]#1.00TIFF Normal [facility] Physician Orderon 04-11-2023 Physician Order [id number] 6#1.00TIFF Normal [facility] Event Monitoron 04-07-2023 Event Monitor [id number] #1.00TIFF Normal [facility] Lab Reportson 03-31-2023 Lab Reports [id number] #1.00TIFF Normal [facility] WILL with Reflexon 03-29-2023 WILL with Reflex Negative Normal Negative [facility] Comment on above: Result Comment: Perf ormed at: CB - [facility] [place] [address] Asphalt Mixing Machine Operator: Ramirez Ca PhD, Phone: [phone] Performed By: #### C BC, HS TROP, BMP, PT, BNP, PTT #### [address] C reactive protein [Mass/vol ume] in Serum or Plasma by High sensitivity methodOrdered By: Becky Aguirre on 03-29-2023 CRP High sensitivity method [Mass/Vol] 4.6 mg/L 0.0-0.9 [facility] Comment on above: Cardiovascular Risk Classification [...] ESR (Bld) [Velocity] 14 mm/h Normal 0-19 [facility] Comment on above: Result Comment: PERF ORMED BY: [place] [address] PATHOLOGIST FLASK CARRIER WENDY CLARK M.D. Performed By: #### C BC, HS TROP, BMP, PT, BNP, PTT #### [address] [address] [facility] Erythrocyte sedimentation ra te by Photometric methodOrdered By: Becky Aguirre on 03-29-2023 ESR Photometric method (Bld) [Velocity] 14 mm/hr 0-19 [facility] Folateon 03-29-2023 Folate 32.0 ng/mL Normal >5.9 [facility] Comment on above: Result Comment: Janel te reference range: >5.9 ng/ml The WHO technical consultation on folate and vitamin b12 deficiencies has determined that folate concentrations less than 4 ng/ml are considered deficient. PERFORMED BY: [place] [address] PATHOLOGIST FLASK CARRIER WENDY CLARK M.D. Performed By: #### C BC, HS TROP, BMP, PT, BNP, PTT #### [place] [id number] [facility] High Sensitive CRPon 023 High Sensitive CRP 4.6 mg/L High 0.0-0.9 [facility] Comment on above: Result Comment: Card iovascular [...] for estimation of CVD risk. PERFORMED BY: [address] [place] [address] PATHOLOGIST FLASK CARRIER WENDY CLARK M.D. Performed By: #### [facility] #### [address] [place] [address] [facility] 03-29-2023 L Specimen: [id number] Received: 03/29/23 Status: ALEXA Bauer Num: [id number] Spec Type: Surgical Subm Dr: Beny Alvarez MD Tissues: A Duodenum - Biopsy (DUODENAL BX) Procedures: Benjamin ALVARENGA/Maye L4 Age/ Patient Sex Location Account Attending Physician Lupe Pickard/F [id number] Beny Alvarez MD SPEC NUM: [id number] RECD: 03/29/23 STATUS: ALEXA BAUER NUM: [id number] NARINDER: 03/29/23 DR: Beny Alvarez MD ENTERED: 03/29/[address] [facility] [address]: SPEC TYPE: Surgical DEPT: S ORDERED: HE/2, Gross/Micro [...] microscopic examination confirms the diagnosis. CPT Codes 04388 Specimen: [id number] Received: 03/29/23 Status: ALEXA Bauer Num: [id number] Spec Type: Surgical Subm Dr: Beny Alvarez MD Tissues: A Duodenum - Biopsy (DUODENAL BX) Procedures: HE/2, Gross/Micro L4 Patient: Lupe Pickard [id number] (Continued) Signed (signature on file) Antoine Sigala MD 03/30/23 1258 Normal [facility] Lab Reportson 03-29-2023 Lab Reports [id number] #1.00TIFF Normal [facility] Lab Reports [id number] #1.00TIFF Normal [facility] Lyme, Total Ab with Reflexon 03-29-2023 Lyme Total Antibody Negative Normal Negative [facility] Comment on above: Result Comment: Lyme antibodies [...] 14 days is recommended. Performed at: - [facility] [id number] Asphalt Mixing Machine Operator: Ramirez Ca PhD, Phone: [phone] PERFORMED BY: [address] [address] PATHOLOGIST FLASK CARRIER WENDY CLARK M.D. Performed By: #### C BC, HS TROP, BMP, PT, BNP, PTT #### [facility] [address] [place] [address] [place] Outside Colonoscopyon 2022 Outside Colonoscopy [id number] #1.00TIFF Normal [facility] Outside Hospital Correspo ndenceon 03-29-2023 Outside Hospital Correspondence [id number] #1.00TIFF Normal [facility] Protein Electrophoresis, Ser umon 03-29-2023 Albumin [Mass/Vol] 3.5 g/dL Normal 2.9-4.4 [facility] Comment on above: Performed By: #### C BC, HS TROP, BMP, PT, BNP, PTT #### [place] [address] [place] Albumin/Globulin [Mass ratio] 1.1 {ratio} Normal 0.7-1.7 [facility] Comment on above: Performed By: #### C BC, HS TROP, BMP, PT, BNP, PTT #### [place] [address] [place] Nqyvb-2-Motxppyj 0.3 g/dL Normal 0.0-0.4 [facility] Comment on above: Performed By: #### C BC, HS TROP, BMP, PT, BNP, PTT #### [place] [address] [place] Jytqp-8-Nyxftgqn 0.8 g/dL Normal 0.4-1.0 [facility] Comment on above: Performed By: #### C BC, HS TROP, BMP, PT, BNP, PTT #### [place] [address] [place] Beta Globulin 1.0 g/dL Normal 0.7-1.3 [facility] Comment on above: Performed By: #### C BC, HS TROP, BMP, PT, BNP, PTT #### [facility] [address] [place] [address] [place] Gamma Globulin 1.1 g/dL Normal 0.4-1.8 [facility] Comment on above: Performed By: #### C BC, HS TROP, BMP, PT, BNP, PTT #### [facility] [address] Globulin (S) [Mass/Vol] 3.2 g/dL Normal 2.2-3.9 [facility] Comment on above: Performed By: #### C BC, HS TROP, BMP, PT, BNP, PTT #### [facility] [address] M-Chacorta Not Observed Normal Not Observed [facility] Comment on above: Performed By: #### C BC, HS TROP, BMP, PT, BNP, PTT #### [facility] [address] Protein [Mass/Vol] 6.7 g/dL Normal 6.0-8.5 [facility] Comment on above: Performed By: #### C BC, HS TROP, BMP, PT, BNP, PTT #### [address] SPE-Note Normal . [facility] Comment on above: Result Comment: Prot ein electrophoresis scan will follow via computer, mail, or computer help desk specialist delivery. Performed at: [facility] [address] [id number] Asphalt Mixing Machine Operator: Ramirez Ca PhD, Phone: [phone] Performed By: #### C BC, HS TROP, BMP, PT, BNP, PTT #### [address] Rheumatoid Factoron 03-29-20 Rheumatoid Factor 10.8 Normal <14.0 [facility] Comment on above: Result Comment: Perf ormed at: [facility] [address] [id number] Asphalt Mixing Machine Operator: Ramirez Ca PhD, Phone: [phone] Performed By: #### C BC, HS TROP, BMP, PT, BNP, PTT #### [address] Vitamin B12on 03-29-2023 Cobalamin (Vitamin B12) [Mass/Vol] 464 pg/mL Normal 180-914 [facility] Comment on above: Performed By: #### C BC, HS TROP, BMP, PT, BNP, PTT #### [facility] [address] [place] [id number] [facility] Vitamin B12 ser/plasOrdered By: Becky Aguirre on 03-29-2023 Cobalamin (Vitamin B12) [Mass/Vol] 464 pg/mL 180-914 [facility] Family Medicine Office/Clini c Noteon 03-28-2023 [...] done Wellness: Due Recent labs: done at [facility] results scanned in chart History of [...] body is itching as well. Went to [facility] yesterday and received a Kenalog shot, and [...] hydrocortisone cream (more content not included)... Normal [facility] Comment on above: Result Comment: Elec [...] these instructions at home: Medicines ? Take edaf-ypb-kpxgfen and prescription medicines only as told by [...] Where to find more information ? National [employer] of Allergy and Infectious Disease: www.niaid.nih.gov Contact [...] nausea o (more content not included)... Normal [facility] Lab Reportson 03-25-2023 Lab Reports [id number]# 1.00TIFF Normal [facility] Lab Reportson 03-18-2023 Lab Reports [id number] #1.00TIFF Normal [facility] Lab Reports [id number] #1.00TIFF Normal [facility] Alanine aminotransferase [En zymatic activity/volume] in Serum or PlasmaOrdered By: Radha Mcintosh on 03-17-2023 ALT [Catalytic activity/Vol] 13 U/L 7-52 [facility] Albumin [Mass/volume] in Ser um or Plasma by Bromocresol green (BCG) dye binding methoOrdered By: Radha Mcintosh on 03-17-2023 Albumin BCG dye [Mass/Vol] 4.2 g/dL 3.5-5.7 [facility] Alkaline phosphatase [Enzyma tic activity/volume] in Serum or PlasmaOrdered By: Radha Mcintosh on 03-17-2023 ALP [Catalytic activity/Vol] 66 U/L 34-104 [facility] Aspartate aminotransferase [ Enzymatic activity/volume] in Serum or PlasmaOrdered By: Radha Mcintosh on 03-17-2023 AST [Catalytic activity/Vol] 11 U/L 13-39 [facility] Basophils Auto (Bld) [#/Vol] Ordered By: Radha Mcintosh on 03-17-2023 Basophils (Bld) [#/Vol] 0.1 10*3/uL 0.0-0.2 [facility] Basophils/100 WBC Auto (Bld) Ordered By: Radha Mcintosh on 03-17-2023 Basophils/100 WBC (Bld) 0.8 % . [facility] Bilirubin.total [Mass/volume ] in Serum or PlasmaOrdered By: Radha Mcintosh on 03-17-2023 Bilirubin [Mass/Vol] 0.3 mg/dL 0.3-1.0 [facility] Calciumon 03-17-2023 Calcium [Mass/Vol] 9.0 mg/dL Normal 8.6-10.3 [facility] Comment on above: Performed By: #### C OVID19 FLU RSV, CEPHEID NEG #### [facility] [address] Calcium [Mass/volume] in Ser um or PlasmaOrdered By: Diony Singh on 03-17-2023 Calcium [Mass/Vol] 9.0 mg/dL 8.6-10.3 [facility] Carbon dioxide, total [Moles /volume] in Serum or PlasmaOrdered By: Radha Mcintosh on 03-17-2023 CO2 [Moles/Vol] 27.5 mmol/L 21.0-31.0 [facility] Chloride [Moles/volume] in S zakia or PlasmaOrdered By: Radha Mcintosh on 03-17-2023 Chloride [Moles/Vol] 104 mmol/L 98-107 [facility] Complete Blood Count Auto Di ffon 03-17-2023 Basophils (Bld) [#/Vol] 0.1 10*3/uL Normal 0.0-0.2 [facility] Comment on above: Order Comment: Reaso n for Exam Generalized Anxiety Disorder (SANDRA);Medication management Result Comment: PERF ORMED BY: [place] [address] PATHOLOGIST FLASK CARRIER WENDY CLARK M.D. Performed By: #### C MP, CBC #### [address] #### VITD+D2+D3 #### [facility] , Basophils/100 WBC (Bld) 0.8 % Normal . [facility] Comment on above: Order Comment: Reaso n for Exam Generalized Anxiety Disorder (SANDRA);Medication management Performed By: #### C MP, CBC #### [address] #### VITD+D2+D3 #### [facility] , Eosinophils (Bld) [#/Vol] 0.1 10*3/uL Normal 0.0-0.45 [facility] Comment on above: Order Comment: Reaso n for Exam Generalized Anxiety Disorder (SANDRA);Medication management Performed By: #### C MP, CBC #### [address] #### VITD+D2+D3 #### [facility] , Eosinophils/100 WBC (Bld) 1.5 % Normal . [facility] Comment on above: Order Comment: Reaso n for Exam Generalized Anxiety Disorder (SANDRA);Medication management Performed By: #### C MP, CBC #### [place] [address] [place] #### VITD+D2+D3 #### [facility] , Erythrocyte distribution width (RBC) [Ratio] 15.2 % Normal 11.9-15.3 [facility] Comment on above: Order Comment: Reaso n for Exam Generalized Anxiety Disorder (SANDRA);Medication management Performed By: #### C MP, CBC #### [place] [address] [place] #### VITD+D2+D3 #### [facility] , Hematocrit (Bld) [Volume fraction] 39.4 % Normal 34.0-46.4 [facility] Comment on above: Order Comment: Reaso n for Exam Generalized Anxiety Disorder (SANDRA);Medication management Performed By: #### C MP, CBC #### [place] [address] [place] #### VITD+D2+D3 #### [facility] , Hemoglobin (Bld) [Mass/Vol] 13.1 g/dL Normal 11.8-15.4 [facility] Comment on above: Order Comment: Reaso n for Exam Generalized Anxiety Disorder (SANDRA);Medication management Performed By: #### C MP, CBC #### [address] #### VITD+D2+D3 #### [facility] , Lymphocytes (Bld) [#/Vol] 2.6 10*3/uL Normal 1.00-4.8 [facility] Comment on above: Order Comment: Reaso n for Exam Generalized Anxiety Disorder (SANDRA);Medication management Performed By: #### C MP, CBC #### [address] #### VITD+D2+D3 #### [facility] , Lymphocytes/100 WBC (Bld) 29.4 % Normal . [facility] Comment on above: Order Comment: Reaso n for Exam Generalized Anxiety Disorder (SANDRA);Medication management Performed By: #### C MP, CBC #### [place] [address] [place] #### VITD+D2+D3 #### [facility] , MCH (RBC) [Entitic mass] 29.0 pg Normal 24.7-34.3 [facility] Comment on above: Order Comment: Reaso n for Exam Generalized Anxiety Disorder (SANDRA);Medication management Performed By: #### C MP, CBC #### [place] [address] [place] #### VITD+D2+D3 #### [facility] , MCV (RBC) [Entitic vol] 87.0 fL Normal 80-100 [facility] Comment on above: Order Comment: Reaso n for Exam Generalized Anxiety Disorder (SANDRA);Medication management Performed By: #### C MP, CBC #### [place] [address] [place] #### VITD+D2+D3 #### [facility] , Mean Corpuscular HGB Conc 33.3 g/dL Normal 32.0-35.0 [facility] Comment on above: Order Comment: Reaso n for Exam Generalized Anxiety Disorder (SANDRA);Medication management Performed By: #### C MP, CBC #### [address] #### VITD+D2+D3 #### [facility] , Monocytes (Bld) [#/Vol] 0.5 10*3/uL Normal 0.0-0.8 [facility] Comment on above: Order Comment: Reaso n for Exam Generalized Anxiety Disorder (SANDRA);Medication management Performed By: #### C MP, CBC #### [place] [address] [place] #### VITD+D2+D3 #### [facility] , Monocytes/100 WBC (Bld) 5.5 % Normal . [facility] Comment on above: Order Comment: Reaso n for Exam Generalized Anxiety Disorder (SANDRA);Medication management Performed By: #### C MP, CBC #### [place] [address] [place] #### VITD+D2+D3 #### [facility] , Neutrophils (Bld) [#/Vol] 5.5 10*3/uL Normal 1.8-7.7 [facility] Comment on above: Order Comment: Reaso n for Exam Generalized Anxiety Disorder (SANDRA);Medication management Performed By: #### C MP, CBC #### [place] [address] [place] #### VITD+D2+D3 #### [facility] , Neutrophils/100 WBC (Bld) 62.8 % Normal . [facility] Comment on above: Order Comment: Reaso n for Exam Generalized Anxiety Disorder (SANDRA);Medication management Performed By: #### C MP, CBC #### [place] [address] [place] #### VITD+D2+D3 #### [facility] , NRBC% 0.1 /100{WBC} Normal 0-0.5 [facility] Comment on above: Order Comment: Reaso n for Exam Generalized Anxiety Disorder (SANDRA);Medication management Performed By: #### C MP, CBC #### [place] [address] [place] #### VITD+D2+D3 #### [facility] , Platelet mean volume (Bld) [Entitic vol] 7.6 fL Normal 6.3-10.7 [facility] Comment on above: Order Comment: Reaso n for Exam Generalized Anxiety Disorder (SANDRA);Medication management Performed By: #### C MP, CBC #### [place] [address] [place] #### VITD+D2+D3 #### [facility] , Platelets (Bld) [#/Vol] 370 10*3/uL Normal 150-450 [facility] Comment on above: Order Comment: Reaso n for Exam Generalized Anxiety Disorder (SANDRA);Medication management Performed By: #### C MP, CBC #### [place] [address] [place] #### VITD+D2+D3 #### [facility] , RBC (Bld) [#/Vol] 4.53 10*6/uL Normal 3.60-5.00 [facility] Comment on above: Order Comment: Reaso n for Exam Generalized Anxiety Disorder (SANDRA);Medication management Performed By: #### C MP, CBC #### [place] [address] [place] #### VITD+D2+D3 #### [facility] , WBC (Bld) [#/Vol] 8.8 10*3/uL Normal 3.8-11.6 [facility] Comment on above: Order Comment: Reaso n for Exam Generalized Anxiety Disorder (SANDRA);Medication management Performed By: #### C MP, CBC #### [address] #### VITD+D2+D3 #### [facility] , Comprehensive Metabolic Pane [facility] 03-17-2023 Albumin [Mass/Vol] 4.2 g/dL Normal 3.5-5.7 [facility] Comment on above: Order Comment: Reaso n for Exam Generalized Anxiety Disorder (SANDRA);Medication management Performed By: #### C MP, CBC #### [place] [address] [place] #### VITD+D2+D3 #### [facility] , Albumin/Globulin [Mass ratio] 1.5 {ratio} Normal [facility] Comment on above: Order Comment: Reaso n for Exam Generalized Anxiety Disorder (SANDRA);Medication management Performed By: #### C MP, CBC #### [place] [address] [place] #### VITD+D2+D3 #### [facility] , ALP [Catalytic activity/Vol] 66 U/L Normal 34-104 [facility] Comment on above: Order Comment: Reaso n for Exam Generalized Anxiety Disorder (SANDRA);Medication management Result Comment: PERF ORMED BY: [place] [address] PATHOLOGIST [employer] WENDY CLARK M.D. Performed By: #### C MP, CBC #### [place] [address] [place] #### VITD+D2+D3 #### [facility] , ALT [Catalytic activity/Vol] 13 U/L Normal 7-52 [facility] Comment on above: Order Comment: Reaso n for Exam Generalized Anxiety Disorder (SANDRA);Medication management Performed By: #### C MP, CBC #### [facility] [address] [place] [address] [place] #### VITD+D2+D3 #### [facility] , Anion gap [Moles/Vol] 11.6 mmol/L Normal 6.0-15.0 [facility] Comment on above: Order Comment: Reaso n for Exam Generalized Anxiety Disorder (SANDRA);Medication management Performed By: #### C MP, CBC #### [place] [address] [place] #### VITD+D2+D3 #### [facility] , AST [Catalytic activity/Vol] 11 U/L Low 13-39 [facility] Comment on above: Order Comment: Reaso n for Exam Generalized Anxiety Disorder (SANDRA);Medication management Performed By: #### C MP, CBC #### [facility] [address] [place] [address] [place] #### VITD+D2+D3 #### [facility] , Bilirubin [Mass/Vol] 0.3 mg/dL Normal 0.3-1.0 [facility] Comment on above: Order Comment: Reaso n for Exam Generalized Anxiety Disorder (SANDRA);Medication management Performed By: #### C MP, CBC #### [facility] [address] [place] [address] [place] #### VITD+D2+D3 #### [facility] , Calcium [Mass/Vol] 8.9 mg/dL Normal 8.6-10.3 [facility] Comment on above: Order Comment: Reaso n for Exam Generalized Anxiety Disorder (SANDRA);Medication management Performed By: #### C MP, CBC #### [place] [address] [place] #### VITD+D2+D3 #### [facility] , Chloride [Moles/Vol] 104 mmol/L Normal 98-107 [facility] Comment on above: Order Comment: Reaso n for Exam Generalized Anxiety Disorder (SANDRA);Medication management Performed By: #### C MP, CBC #### [place] [address] [place] #### VITD+D2+D3 #### [facility] , CO2 [Moles/Vol] 27.5 mmol/L Normal 21.0-31.0 [facility] Comment on above: Order Comment: Reaso n for Exam Generalized Anxiety Disorder (SANDRA);Medication management Performed By: #### C MP, CBC #### [address] #### VITD+D2+D3 #### [facility] , Creatinine [Mass/Vol] 0.54 mg/dL Low 0.60-1.20 [facility] Comment on above: Order Comment: Reaso n for Exam Generalized Anxiety Disorder (SANDRA);Medication management Performed By: #### C MP, CBC #### [place] [address] [place] #### VITD+D2+D3 #### [facility] , GFR/1.73 sq M.predicted MDRD (S/P/Bld) [Vol rate/Area] mL/min/{1.73_m2} Normal [facility] Comment on above: Order Comment: Reaso n for Exam Generalized Anxiety Disorder (SANDRA);Medication management Performed By: #### C MP, CBC #### [facility] [address] [place] [address] [place] #### VITD+D2+D3 #### [facility] , Globulin (S) [Mass/Vol] 2.8 g/dL Normal [facility] Comment on above: Order Comment: Reaso n for Exam Generalized Anxiety Disorder (SANDRA);Medication management Performed By: #### C MP, CBC #### [place] [address] [place] #### VITD+D2+D3 #### [facility] , Glucose [Mass/Vol] 79 mg/dL Normal 70-100 [facility] Comment on above: Order Comment: Reaso n for Exam Generalized Anxiety Disorder (SANDRA);Medication management Result Comment: [place] Glucose Reference Range is dependent on time and content of last meal. Glucose of more than 200 mg/dL in a nonstressed, ambulatory subject supports the diagnosis of Diabetes Mellitus. ADA recommended reference range Performed By: #### C MP, CBC #### [place] [address] [place] #### VITD+D2+D3 #### [facility] , Potassium [Moles/Vol] 4.1 mmol/L Normal 3.5-5.1 [facility] Comment on above: Order Comment: Reaso n for Exam Generalized Anxiety Disorder (SANDRA);Medication management Performed By: #### C MP, CBC #### [place] [address] [place] #### VITD+D2+D3 #### [facility] , Protein [Mass/Vol] 7.0 g/dL Normal 6.4-8.9 [facility] Comment on above: Order Comment: Reaso n for Exam Generalized Anxiety Disorder (SANDRA);Medication management Performed By: #### C MP, CBC #### [facility] [address] [place] [address] [place] #### VITD+D2+D3 #### [facility] , Sodium [Moles/Vol] 139 mmol/L Normal 136-145 [facility] Comment on above: Order Comment: Reaso n for Exam Generalized Anxiety Disorder (SANDRA);Medication management Performed By: #### C MP, CBC #### [place] [address] [place] #### VITD+D2+D3 #### [facility] , Urea nitrogen [Mass/Vol] 9 mg/dL Normal 7-25 [facility] Comment on above: Order Comment: Reaso n for Exam Generalized Anxiety Disorder (SANDRA);Medication management Performed By: #### C MP, CBC #### [facility] [address] #### VITD+D2+D3 #### [facility] , Creatinine [Mass/volume] in Serum or PlasmaOrdered By: Radha Mcintosh on 03-17-2023 Creatinine [Mass/Vol] 0.54 mg/dL 0.60-1.20 [facility] Eosinophils Auto (Bld) [#/Vo l]Ordered By: Radha Mcintosh on 03-17-2023 Eosinophils (Bld) [#/Vol] 0.1 10*3/uL 0.0-0.45 [facility] Eosinophils/100 WBC Auto (Bl d)Ordered By: Radha Mcintosh on 03-17-2023 Eosinophils/100 WBC (Bld) 1.5 % . [facility] Erythrocyte distribution wid th Auto (RBC) [Ratio]Ordered By: Radha Mcintosh on 03-17-2023 Erythrocyte distribution width (RBC) [Ratio] 15.2 % 11.9-15.3 [facility] Ferritinon 03-17-2023 Ferritin [Mass/Vol] 66.4 ng/mL Normal 11.0-306.8 [facility] Comment on above: Performed By: #### C OVID19 FLU RSV, CEPHEID NEG #### [facility] [address] [place] [address] Ferritin [Mass/volume] in Se rum or PlasmaOrdered By: Diony Singh on 03-17-2023 Ferritin [Mass/Vol] 66.4 ng/mL 11.0-306.8 [facility] Folate [Mass/volume] in Seru m or PlasmaOrdered By: Diony Singh on 03-17-2023 Folate [Mass/Vol] 27.0 ng/mL >5.9 [facility] Comment on above: Folate reference ran ge: >5.9 ng/mlThe WHO technical consultation on folate and vitamin [id number] has determined that folate concentrations lessthan 4 ng/ml are considered deficient. Globulin Calc (S) [Mass/Vol] Ordered By: Radha Mcintosh on 03-17-2023 Globulin (S) [Mass/Vol] 2.8 g/dL [facility] Glucose [Mass/volume] in Ser um or PlasmaOrdered By: Radha Mcintosh on 03-17-2023 Glucose [Mass/Vol] 79 mg/dL 70-100 [facility] Comment on above: ADA recommended refe rence rangeRandom Glucose Reference Range is dependent on time and content of last meal. Glucose of more than 200 mg/dL in a nonstressed, ambulatory subject supports the diagnosis of Diabetes Mellitus. Hematocrit Auto (Bld) [Volum e fraction]Ordered By: Radha Mcintosh on 03-17-2023 Hematocrit (Bld) [Volume fraction] 39.4 % 34.0-46.4 [facility] Hemoglobin [Mass/volume] in BloodOrdered By: Radha Mcintosh on 03-17-2023 Hemoglobin (Bld) [Mass/Vol] 13.1 g/dL 11.8-15.4 [facility] Ironon 03-17-2023 Iron [Mass/Vol] 40 ug/dL Low 50-212 [facility] Comment on above: Performed By: #### C OVID19 FLU RSV, CEPHEID NEG #### [facility] [address] Iron [Mass/volume] in Serum or PlasmaOrdered By: Diony Singh on 03-17-2023 Iron [Mass/Vol] 40 ug/dL 50-212 [facility] Leukocytes [#/volume] correc emily for nucleated erythrocytes in Blood by Automated counOrdered By: Radha Mcintosh on 03-17-2023 WBC corrected for nucl RBC Auto (Bld) [#/Vol] 8.8 10*3/uL 3.8-11.6 [facility] Lymphocytes Auto (Bld) [#/Vo l]Ordered By: Radha Mcintosh on 03-17-2023 Lymphocytes (Bld) [#/Vol] 2.6 10*3/uL 1.00-4.8 [facility] Lymphocytes/100 WBC Auto (Bl d)Ordered By: Radha Mcintosh on 03-17-2023 Lymphocytes/100 WBC (Bld) 29.4 % . [facility] MCH Auto (RBC) [Entitic mass ]Ordered By: Radha Mcintosh on 03-17-2023 MCH (RBC) [Entitic mass] 29.0 pg 24.7-34.3 [facility] MCHC Auto (RBC) [Mass/Vol]Or dered By: Radha Mcintosh on 03-17-2023 MCHC (RBC) [Mass/Vol] 33.3 g/dL 32.0-35.0 [facility] MCV Auto (RBC) [Entitic vol] Ordered By: Radha Mcintosh on 03-17-2023 MCV (RBC) [Entitic vol] 87.0 fL 80-100 [facility] Monocytes Auto (Bld) [#/Vol] Ordered By: Radha Mcintosh on 03-17-2023 Monocytes (Bld) [#/Vol] 0.5 10*3/uL 0.0-0.8 [facility] Monocytes/100 WBC Auto (Bld) Ordered By: Radha Mcintosh on 03-17-2023 Monocytes/100 WBC (Bld) 5.5 % . [facility] Neutrophils Auto (Bld) [#/Vo l]Ordered By: Radha Mcintosh on 03-17-2023 Neutrophils (Bld) [#/Vol] 5.5 10*3/uL 1.8-7.7 [facility] Neutrophils/100 WBC Auto (Bl d)Ordered By: Radha Mcintosh on 03-17-2023 Neutrophils/100 WBC (Bld) 62.8 % . [facility] No Panel InformationOrdered By: Radha Mcintosh on 03-17-2023 Estimated GFR (CKD-EPI) > 60.0 mL/Min [facility] Creatinine Clearance (Chem N/A [facility] Nucleated erythrocytes [Pres ence] in Blood by Automated countOrdered By: Radha Mcintosh on 03-17-2023 Nucleated RBC Auto Ql (Bld) 0.1 /100{WBC} 0-0.5 [facility] Parathyrin.intact [Mass/volu me] in Serum or PlasmaOrdered By: Diony Singh on 03-17-2023 Parathyrin.intact [Mass/Vol] 46.2 pg/mL [facility] Parathyroid Hormone Intacton 03-17-2023 Parathyroid Hormone Intact 46.2 pg/mL Normal [facility] Comment on above: Result Comment: PERF ORMED BY: [place] [address] PATHOLOGIST [employer] WENDY CLARK M.D. Performed By: #### C OVID19 FLU RSV, CEPHEID NEG #### [facility] [address] Phosphate [Mass/volume] in S zakia or PlasmaOrdered By: Diony Singh on 03-17-2023 Phosphate [Mass/Vol] 4.0 mg/dL 3.7-7.2 [facility] Phosphoruson 03-17-2023 Phosphate [Mass/Vol] 4.0 mg/dL Normal 3.7-7.2 [facility] Comment on above: Performed By: #### C OVID19 FLU RSV, CEPHEID NEG #### [address] Platelet mean volume Auto (B ld) [Entitic vol]Ordered By: Radha Mcintosh on 03-17-2023 Platelet mean volume (Bld) [Entitic vol] 7.6 fL 6.3-10.7 [facility] Platelets Auto (Bld) [#/Vol] Ordered By: Radha Mcintosh on 03-17-2023 Platelets (Bld) [#/Vol] 370 10*3/uL 150-450 [facility] Potassium [Moles/volume] in Serum or PlasmaOrdered By: Radha Mcintosh on 03-17-2023 Potassium [Moles/Vol] 4.1 mmol/L 3.5-5.1 [facility] Protein [Mass/volume] in Ser um or PlasmaOrdered By: Radha Mcintosh on 03-17-2023 Protein [Mass/Vol] 7.0 g/dL 6.4-8.9 [facility] RBC Auto (Bld) [#/Vol]Ordere d By: Radha Mcintosh on 03-17-2023 RBC (Bld) [#/Vol] 4.53 10*6/uL 3.60-5.00 [facility] Serum or plasma 25-hydroxyca lciferol measurement (mass/volume)Ordered By: Radha Mcintosh on 03-17-2023 25-hydroxyvitamin D2 [Mass/Vol] <1.0 ng/mL . [facility] Comment on above: This test was develo ped and its performance characteristicsdetermined by [facility]. It has not been cleared or approvedby the Food and Drug Administration. Serum or plasma 25-hydroxyvi tamin D measurement (mass/volume)Ordered By: Radha Mcintosh on 03-17-2023 25-hydroxyvitamin D [Mass/Vol] 47 ng/mL . [facility] Comment on above: Reference Range:All Ages: Target levels 30 - 100 Serum or plasma albumin/glob ulin mass ratioOrdered By: Radha Mcintosh on 03-17-2023 Albumin/Globulin [Mass ratio] 1.5 {ratio} [facility] Serum or plasma anion gap de terminationOrdered By: Radha Mcintosh on 03-17-2023 Anion gap [Moles/Vol] 11.6 mmol/L 6.0-15.0 [facility] Serum or plasma calcidiol me asurement (mass/volume)Ordered By: Radha Mcintosh on 03-17-2023 25-hydroxyvitamin D3 [Mass/Vol] 47 ng/mL . [facility] Comment on above: This test was develo ped and its performance characteristicsdetermined by [facility]. It has not been cleared or approvedby the Food and Drug Administration.Performed at: [facility] [id number] [place], [place] [id number] Director: Kenji Malone MD, Phone: [phone] Sodium [Moles/volume] in Ser um or PlasmaOrdered By: Radha Mcintosh on 03-17-2023 Sodium [Moles/Vol] 139 mmol/L 136-145 [facility] Urea nitrogen [Mass/volume] in Serum or PlasmaOrdered By: Radha Mcintosh on 03-17-2023 Urea nitrogen [Mass/Vol] 9 mg/dL 7-25 [facility] Vit. B12/Folate Profileon Cobalamin (Vitamin B12) [Mass/Vol] 478 pg/mL Normal 180-914 [facility] Comment on above: Performed By: #### C MP, CBC #### [place] [address] [place] #### VITD+D2+D3 #### [facility] , Folate 27.0 ng/mL Normal >5.9 [facility] Comment on above: Result Comment: Janel te reference range: >5.9 ng/ml The WHO technical consultation on folate and vitamin b12 deficiencies has determined that folate concentrations less than 4 ng/ml are considered deficient. PERFORMED BY: [place] [address] PATHOLOGIST [employer] WENDY CLARK M.D. Performed By: #### C MP, CBC #### [address] #### VITD+D2+D3 #### [facility] , Vitamin B12 ser/plasOrdered By: Diony Singh on 03-17-2023 Cobalamin (Vitamin B12) [Mass/Vol] 478 pg/mL 180-914 [facility] Vitamin D 25 Hydroxy,Tot+D2+ D3on 03-17-2023 [facility] Vitamin D 25 OH 47 ng/mL Normal . [facility] Comment on above: Order Comment: Reaso n for Exam Generalized Anxiety Disorder (SANDRA);Medication management Result Comment: Refe rence Range: All Ages: Target levels 30 - 100 Performed By: #### C MP, CBC #### [place] [address] [place] #### VITD+D2+D3 #### [facility] , Vitamin D-2 <1.0 Normal . [facility] Comment on above: Order Comment: Reaso n for Exam Generalized Anxiety Disorder (SANDRA);Medication management Result Comment: This test was developed and its performance characteristics determined by [facility]. It has not been cleared or approved by the Food and Drug Administration. Performed By: #### C MP, CBC #### [place] [address] [place] #### VITD+D2+D3 #### [facility] , Vitamin D-3 47 ng/mL Normal . [facility] Comment on above: Order Comment: Mani chase for Exam Generalized Anxiety Disorder (SANDRA);Medication management Result Comment: This test was developed and its performance characteristics determined by [facility]. It has not been cleared or approved by the Food and Drug Administration. Performed at: [address] [address] [place] [id number] [employer] Operator: Kenji Malone MD, Phone: [phone] PERFORMED BY: [place] [address] PATHOLOGIST [employer] WENDY CLARK M.D. Performed By: #### C MP, CBC #### [address] #### VITD+D2+D3 #### [facility] , WBC Auto (Bld) [#/Vol]Ordere d By: Radha Mcintosh on 03-17-2023 WBC (Bld) [#/Vol] 8.8 10*3/uL 3.8-11.6 [facility] Medicine Office/Clini c Noteon 03-14-2023 [...] not ; her partner, Katie, works at [employer] The patient is NOT currently working; disability for back, fibromyalgia and depression - 8 years The patient has 4 children; 29, 28, 19, 16 Colon Cancer screening: colonoscopy is planned for later this month --> 7 years ago Breast cancer screenin/22 Pap smear: s/p hysterectomy with cervix removal DEXA: age Labs: done at [facility] List of Providers: Cardiology - [facility] - Dr. [place] / [facility] staff / Chief Complaint confirmed with the [...] 02/03/23 - message re-fax pysch referral to [facility] 02/02/23 - urology - [facility] - [...] psychiatry due to increasing anxiety [place]24/23 [place] [facility] [place]05[place]23 - ED uncontrolled blood pressure, and concern of DVT I may have over reacted 01/04/23 - raya Saeed palpitations - not tolerating metoprolol --> changed to diltiazem leg pain - CTA negative --> requesting US of her leg HTN - BP is well controlled 12/30/22 [place] [facility] [place] BP 12/23/22 - raya madera palpitations - hx of abnormal 30 day event monitor requesting second opinion due to recent fatal AK in her 42 y/o brother regular chest [...] cardiology appt in [place] requesting referral to [facility] 12/08/22 - [facility] [place] cardiology palpitations/ SOB - echo and stress test negative 11/24/22 - message requestin rheum referral to Dr. Cadet because she doesn't drive on [place] [employer] 11/11/22 - PCP - Dr. Donya Billings anxiety - xanax PRN insomnia - continue melatonin noted rx for temazepam metoprolol rx 11/05/22 - [facility] LABS Cr/eGFR: No qualifying data available. A1c: No qualifying data available. TSH: No qualifying data available. Vit D: No qualifying data available. LDL: No qualifying data available. Lipids: No qualifying data available. Microalbumin: No qualifying data available. INR: No qualifying data available. Testosterone: No qualifying data available. Free and total testosterone: No qualifying data available. Future Appointments [facility] Appt. Date: 03/11/2023 8:40 AM Scheduled Provider: Diony Singh DO [address] [place], [place], [id number] Phone: -- Fax: -- [facility]: 04/11/2023 10:00 AM Scheduled Provider: R[place], [address] Phone: [phone] Fax: [phone] [facility] Appt. Date: 11/16/2023 1:00 PM Scheduled Provider: BRIAN [employer] Phone: -- Fax: -- PHYSICAL EXAM Constitutional: Vital signs reviewed; LUPE PICKARD is well nourished, no acute distress - _ Head: Atraumatic, normocephalic Eye: EOMI, normal conjunctiva ENT: Moist oral mucosa, external inspection of ears and nose is unremarkable Neck: Trachea is midline, no tenderness Lungs: Cl (more content not included)... Normal [facility] Comment on above: Result Comment: Elec [...] she recently stopped tramadol and is on Huger, which subsequently ended her use of benzodiazepines. [...] 1 month 2. Medication management (Z79.899: Other prison (current) drug therapy) Long list of medications Currently on Huger for back pain; recently removed from tramadol and benzodiazepines Started with manager psychiatry who started lexapro, propanolol, and hydroxyzine regimen [...] No qualifying (more content not included)... Normal [facility] Comment on above: Result Comment: Elec tronically Signed By: Diony Singh DO\.br\Date and Time Signed: 03/14/23 14:13 EDT Other Comment: brent mccarty - student note Ambulatory Visit Summaryon Ambulatory Visit Summary LUPE PICKARD :1975 Visit Date:03/11/2023 Ambulatory Visit Instructions Your Diagnosis Palpitations Medication management Anxiety Chronic insomnia Fibromyalgia Moderate recurrent major depression Morbid obesity Adult BMI 40.0-44.9 kg/sq m Your Care Team Attending Physician - Diony Singh DO Primary Care Physician - Diony Singh DO This Is Your Medications List Contact prescribing physician if questions or concerns acetaminophen (Tylenol) acetaminophen-hydroc odone (Huger 5/325 Tab) alprazolam (alprazolam 0.5 mg Tab) [...] PM EST With: Diony Singh DO Where: [facility] Invalid Interpretation Code [address] [place] [address]-\.br\ Tuesday 1:00 PM EDT \.br\ With:\.br\ Where: [facility] Consent for Treatmenton 02-27 Consent for Treatment [id number] #1.00TIFF Normal [facility] Heart and Vascular Office/Cl inic Noteon 03-08-2023 [...] Would consider study adequate. Reviewed strips from [employer]- no arrhythmia. Will repeat a 30 day event monitor Continue current medications for now Portions of this record may have been created with voice recognition artificial intelligence software, specifically Digiscend, Bloxy and or Dragon Ambient Experience. Substitutions may have occurred due to the inherent limitations of voice recognition and artificial intelligence software. Follow-up With When Contact Information SANTY PELAYO, Franklyn [place] [address]- [phone] Additional Instructions: 4-6 weeks Problem List/Past Medical [...] hours Cap-ER, (more content not included)... Normal [facility] Comment on above: Result Comment: Elec tronically Signed By: STANG MILL HAND, Roula L\.br\Date and Time Signed: 03/08/23 14:35 EDT Free T4 (Free Thyroxine)on 0 02-17-2023 Free T4 [Mass/Vol] 0.87 ng/dL Normal 0.61-1.12 [facility] Comment on above: Performed By: #### C BC, HS TROP, BMP, PT, BNP, PTT #### [facility] [address] Thyroid Stimulating Hormoneo n 02-17-2023 TSH Qn 0.24 m[IU]/L Low 0.45-5.33 [facility] Comment on above: Result Comment: PERF ORMED BY: [place] [address] PATHOLOGIST [employer] WENDY CLARK M.D. Performed By: #### C BC, HS TROP, BMP, PT, BNP, PTT #### [address] Thyrotropin [Units/volume] i n Serum or PlasmaOrdered By: Kenyetta Dove on 02-17-2023 TSH Qn 0.24 m[IU]/L 0.45-5.33 [facility] Thyroxine (T4) free [Mass/vo lume] in Serum or PlasmaOrdered By: Kenyetta Dove on 02-17-2023 Free T4 [Mass/Vol] 0.87 ng/dL 0.61-1.12 [facility] Triiodothyronine (T3) Freeon 02-17-2023 Triiodothyronine (T3) Free 3.89 pg/mL Normal 2.50-3.90 [facility] Comment on above: Result Comment: PERF ORMED BY: [place] [address] PATHOLOGIST [employer] WENDY CLARK M.D. Performed By: #### C BC, HS TROP, BMP, PT, BNP, PTT #### [address] [address] [facility] Triiodothyronine (T3) Free [ Mass/volume] in Serum or PlasmaOrdered By: Kenyetta Dove on 02-17-2023 Free T3 [Mass/Vol] 3.89 pg/mL 2.50-3.90 [facility] Consent for Treatmenton 01-29 Consent for Treatment [id number] #1.00CD:127 Normal [facility] Physician Orderon 02-16-2023 Physician Order [id number]#1.00CD:127 Normal [facility] NM Myocardial Spect Part 2on 02-09-2023 NM [...] Dose (mCi Tc99m Cardiolite): 29.1 Normal [facility] Patient Educationon 02-03-20 Patient Education Obstetrics and [...] health care provider. General instructions ? Take zrrk-phk-pussrpm and prescription medicines only as told by [...] yo (more content not included)... Normal [facility] Urology Office/Clinic Noteon 02-02-2023 Urology Office/Clinic Note [...] time for her next Botox dose. Ordered: 43056 Measure Post Void residual urine and/or bladder capacity by US- non-imaging E&M of Est. Patient Moderate 30-39 Min [id number] Follow-up With When Contact Information MAYA DELCID, ALLYSSA Bellamy, URL Only if needed [address] [place] [address] Verenium (1) Additional Instructions: Call today to schedule [...] Social History (more content not included)... Normal [facility] Comment on above: Result Comment: Elec [...] stress testing. Unfortunately, patient was seen at [facility] ER for elevated blood pressure and palpitations. [...] Patient had a recent elevated D-dimer at [facility] ER, her chest CTA was negative. [...] With When Contact Information Roula SAEED CNP [address] [place] [address] [phone] Additional Instructions: Keep previously scheduled appointment Dr. [...] 1 tab (more content not included)... Normal [facility] Comment on above: Result Comment: Elec tronically Signed By: Roula SAEED CNP\.br\Date and Time Signed: 01/31/23 14:27 EDT Physician Referralon 023 Physician Referral [id number]# 1.00CD:127 Normal [facility] Physician Referral [id number]# 1.00CD:127 Normal [facility] Sleep Studieson 01-28-2023 Sleep Studies [id number] #1.00CD:127 Normal [facility] Consent for Treatmenton 12-30 Consent for Treatment [id number] #1.00CD:127 Normal [facility] Heart and Vascular Office/Cl inic Noteon 01-27-2023 Heart and Vascular Office/Clinic Note History of Present Illness Patient is a very pleasant 47-year-old morbidly obese nondiabetic female with a history of fibromyalgia, GERD, former smoker quit more than 30 years ago, referred to our office for palpitations. Patient was originally referred to [facility] with Dr. 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 Given the patient's family history of heart disease she wanted a second opinion. The patient went to the emergency room in the recent past and [facility] where her blood pressure was found [...] Symptomatic PVCs (more content not included)... Normal [facility] Comment on above: Result Comment: Elec tronically Signed By: SANTY PELAYO, Franklyn Arias\.br\Date and Time Signed: 01/27/23 13:54 EDT Physician Orderon 01-27-2023 Physician Order [id number] #1.00CD:127 Normal [facility] Stress EKG Tracingson 2022 Stress EKG Tracings [id number]#1.00CD:127 Normal [facility] Ambulatory Visit Summaryon 0 01-26-2023 Ambulatory Visit Summary LUPE PICKARD Loren :1975 Visit Date:01/26/2023 Ambulatory Visit Instructions Your [...] ALLYSSA TREJO PA-C Where: [facility] Invalid Interpretation Code [address] [place] [address].br\ Tuesday 1:00 PM EDT \.br\ With:\.br\ Where: [facility] Family Medicine [facility] Patient Educationon 01-27-20 23 Patient Education Mental [...] or l (more content not included)... Normal [facility] US venous duplex LE LTon US venous duplex LE LT [facility] [place] [address] Ultrasound Report Signed Patient: Lupe Pickard MR#: [id number] : 1975 Acct:[id number] Age/Sex: 47 / F ADM Date: 01/24/23 Loc: ER Room: Type: [facility] ER Attending Dr: Ordering Provider: Yogi Mcgraw DO Date of Service: 01/24/23 US/US venous duplex LE LT: r/o DVT Copies to: Yogi Mcgraw DO LEFT LOWER EXTREMITY VENOUS DUPLEX INDICATION: Left leg pain and tenderness. Recent long flight from [place]. Unilateral left lower extremity venous duplex Doppler study was obtained utilizing B-mode, color- flow and spectral Doppler. FINDINGS: The left common femoral, femoral, and popliteal veins showed adequate compressibility, color-flow and augmentation. The left posterior tibial and peroneal veins were compressible, as well as proximal greater saphenous vein. The contralateral right common femoral vein was compressible with color-flow and augmentation. US/US venous duplex LE LT IMPRESSION: NO EVIDENCE OF DEEP VENOUS THROMBOSIS IN THE LEFT LOWER EXTREMITY. NO SUPERFICIAL THROMBOPHLEBITIS WAS NOTED. Impression dictated by: Yogi Redding MD01/25/2023 10:05 AM Dictation Location: [place] [address] Tech: Linda Andrew Transcribed By: BOB 01/25/23 1005 Dictated By: Yogi Redding MD 01/25/23 1004 Signed By: 01/25/23 1005 Normal [facility] Activated partial thrombopla stin time (aPTT) in platelet poor plasma by coagulation aOrdered By: Laz Lobo on 01-24-2023 aPTT Coag (PPP) [Time] 29.9 s 25.1-36.5 [facility] B-Type Natriuretic Peptideon 01-24-2023 Natriuretic peptide B (Bld) [Mass/Vol] 37.0 pg/mL Normal 5-100 [facility] Comment on above: Result Comment: PERF ORMED BY: [place] [address] PATHOLOGIST [employer] WENDY CLARK M.D. Performed By: #### C BC, HS TROP, BMP, PT, BNP, PTT #### [address] Basic Metabolic Panelon 2 Anion gap [Moles/Vol] 8.8 mmol/L Normal 6.0-15.0 [facility] Comment on above: Performed By: #### C BC, HS TROP, BMP, PT, BNP, PTT #### [address] Calcium [Mass/Vol] 8.7 mg/dL Normal 8.6-10.3 [facility] Comment on above: Performed By: #### C BC, HS TROP, BMP, PT, BNP, PTT #### [address] Chloride [Moles/Vol] 105 mmol/L Normal 98-107 [facility] Comment on above: Performed By: #### C BC, HS TROP, BMP, PT, BNP, PTT #### [address] CO2 [Moles/Vol] 29.0 mmol/L Normal 21.0-31.0 [facility] Comment on above: Performed By: #### C BC, HS TROP, BMP, PT, BNP, PTT #### [address] Creatinine [Mass/Vol] 0.57 mg/dL Low 0.60-1.20 [facility] Comment on above: Performed By: #### C BC, HS TROP, BMP, PT, BNP, PTT #### [address] Creatinine Clr Calc Pharmacy 169.33 Normal [facility] Comment on above: Result Comment: PERF ORMED BY: [place] [address] PATHOLOGIST [employer] CAR[employer]ER JIANLAN SUN M.D. Performed By: #### C BC, HS TROP, BMP, PT, BNP, PTT #### [address] GFR/1.73 sq M.predicted MDRD (S/P/Bld) [Vol rate/Area] mL/min/{1.73_m2} Normal [facility] Comment on above: Performed By: #### C BC, HS TROP, BMP, PT, BNP, PTT #### [address] Glucose [Mass/Vol] 110 mg/dL High 70-100 [facility] Comment on above: Result Comment: [facility] Glucose Reference Range is dependent on time and content of last meal. Glucose of more than 200 mg/dL in a nonstressed, ambulatory subject supports the diagnosis of Diabetes Mellitus. ADA recommended reference range Performed By: #### C BC, HS TROP, BMP, PT, BNP, PTT #### [address] Potassium [Moles/Vol] 3.8 mmol/L Normal 3.5-5.1 [facility] Comment on above: Performed By: #### C BC, HS TROP, BMP, PT, BNP, PTT #### [address] Sodium [Moles/Vol] 139 mmol/L Normal 136-145 [facility] Comment on above: Performed By: #### C BC, HS TROP, BMP, PT, BNP, PTT #### [address] Urea nitrogen [Mass/Vol] 7 mg/dL Normal 7-25 [facility] Comment on above: Performed By: #### C BC, HS TROP, BMP, PT, BNP, PTT #### [address] Basophils Auto (Bld) [#/Vol] Ordered By: Laz Lobo on 01-24-2023 Basophils (Bld) [#/Vol] 0.1 10*3/uL 0.0-0.2 [facility] Basophils/100 WBC Auto (Bld) Ordered By: Laz Lobo on 01-24-2023 Basophils/100 WBC (Bld) 0.7 % . [facility] Bilirubin Test strip Ql (U)O rdered By: Laz Lobo on 01-24-2023 Bilirubin Ql (U) Negative Negative [facility] Calcium [Mass/volume] in Ser um or PlasmaOrdered By: Laz Lobo on 01-24-2023 Calcium [Mass/Vol] 8.7 mg/dL 8.6-10.3 [facility] Carbon dioxide, total [Moles /volume] in Serum or PlasmaOrdered By: Laz Lobo on 01-24-2023 CO2 [Moles/Vol] 29.0 mmol/L 21.0-31.0 [facility] Chloride [Moles/volume] in S zakia or PlasmaOrdered By: Laz Lobo on 01-24-2023 Chloride [Moles/Vol] 105 mmol/L 98-107 [facility] Color Auto (U)Ordered By: Elsa Lobo on 01-24-2023 Color (U) Yellow Yellow [facility] Complete Blood Count Auto Di ffon 01-24-2023 Basophils (Bld) [#/Vol] 0.1 10*3/uL Normal 0.0-0.2 [facility] Comment on above: Result Comment: PERF ORMED BY: [place] [address] PATHOLOGIST [employer] WENDY CLARK M.D. Performed By: #### C BC, HS TROP, BMP, PT, BNP, PTT #### [facility] [address] [place] [address] Basophils/100 WBC (Bld) 0.7 % Normal . [facility] Comment on above: Performed By: #### C BC, HS TROP, BMP, PT, BNP, PTT #### [facility] [address] [place] [address] Eosinophils (Bld) [#/Vol] 0.1 10*3/uL Normal 0.0-0.45 [facility] Comment on above: Performed By: #### C BC, HS TROP, BMP, PT, BNP, PTT #### [address] Eosinophils/100 WBC (Bld) 1.6 % Normal . [facility] Comment on above: Performed By: #### C BC, HS TROP, BMP, PT, BNP, PTT #### [address] Erythrocyte distribution width (RBC) [Ratio] 14.5 % Normal 11.9-15.3 [facility] Comment on above: Performed By: #### C BC, HS TROP, BMP, PT, BNP, PTT #### [address] Hematocrit (Bld) [Volume fraction] 39.8 % Normal 34.0-46.4 [facility] Comment on above: Performed By: #### C BC, HS TROP, BMP, PT, BNP, PTT #### [address] Hemoglobin (Bld) [Mass/Vol] 13.2 g/dL Normal 11.8-15.4 [facility] Comment on above: Performed By: #### C BC, HS TROP, BMP, PT, BNP, PTT #### [address] Lymphocytes (Bld) [#/Vol] 2.0 10*3/uL Normal 1.00-4.8 [facility] Comment on above: Performed By: #### C BC, HS TROP, BMP, PT, BNP, PTT #### [address] Lymphocytes/100 WBC (Bld) 26.6 % Normal . [facility] Comment on above: Performed By: #### C BC, HS TROP, BMP, PT, BNP, PTT #### [address] MCH (RBC) [Entitic mass] 28.8 pg Normal 24.7-34.3 [facility] Comment on above: Performed By: #### C BC, HS TROP, BMP, PT, BNP, PTT #### [address] [address] [place] MCV (RBC) [Entitic vol] 86.8 fL Normal 80-100 [facility] Comment on above: Performed By: #### C BC, HS TROP, BMP, PT, BNP, PTT #### [address] Mean Corpuscular HGB Conc 33.1 g/dL Normal 32.0-35.0 [facility] Comment on above: Performed By: #### C BC, HS TROP, BMP, PT, BNP, PTT #### [address] Monocytes (Bld) [#/Vol] 0.2 10*3/uL Normal 0.0-0.8 [facility] Comment on above: Performed By: #### C BC, HS TROP, BMP, PT, BNP, PTT #### [address] Monocytes/100 WBC (Bld) 16.72 % Normal 0.00-20.00 [facility] Comment on above: Performed By: #### C BC, HS TROP, BMP, PT, BNP, PTT #### [address] Monocytes/100 WBC (Bld) 2.7 % Normal . [facility] Comment on above: Performed By: #### C BC, HS TROP, BMP, PT, BNP, PTT #### [address] Neutrophils (Bld) [#/Vol] 5.2 10*3/uL Normal 1.8-7.7 [facility] Comment on above: Performed By: #### C BC, HS TROP, BMP, PT, BNP, PTT #### [address] Neutrophils/100 WBC (Bld) 68.4 % Normal . [facility] Comment on above: Performed By: #### C BC, HS TROP, BMP, PT, BNP, PTT #### [address] NRBC% 0.1 /100{WBC} Normal 0-0.5 [facility] Comment on above: Performed By: #### C BC, HS TROP, BMP, PT, BNP, PTT #### [facility] [address] Platelet mean volume (Bld) [Entitic vol] 8.2 fL Normal 6.3-10.7 [facility] Comment on above: Performed By: #### C BC, HS TROP, BMP, PT, BNP, PTT #### [facility] [address] Platelets (Bld) [#/Vol] 350 10*3/uL Normal 150-450 [facility] Comment on above: Performed By: #### C BC, HS TROP, BMP, PT, BNP, PTT #### [facility] [address] RBC (Bld) [#/Vol] 4.59 10*6/uL Normal 3.60-5.00 [facility] Comment on above: Performed By: #### C BC, HS TROP, BMP, PT, BNP, PTT #### [address] WBC (Bld) [#/Vol] 7.6 10*3/uL Normal 3.8-11.6 [facility] Comment on above: Performed By: #### C BC, HS TROP, BMP, PT, BNP, PTT #### [address] Creatine Kinaseon 01-24-2023 CK [Catalytic activity/Vol] 55 U/L Normal 30-223 [facility] Comment on above: Performed By: #### C BC, HS TROP, BMP, PT, BNP, PTT #### [address] Creatine kinase [Enzymatic a ctivity/volume] in Serum or PlasmaOrdered By: Laz Lobo on 01-24-2023 CK [Catalytic activity/Vol] 55 U/L 30-223 [facility] Creatinine [Mass/volume] in Serum or PlasmaOrdered By: Laz Lobo on 01-24-2023 Creatinine [Mass/Vol] 0.57 mg/dL 0.60-1.20 [facility] D-Dimer High Sensitivityon 0 01-24-2023 D-Dimer High Sensitivity < 200 Normal 0-243 [facility] Comment on above: Result Comment: The reference [...] patients due to co-morbid conditions. PERFORMED BY: [place] [address] PATHOLOGIST [employer]ER WENDY CLARK M.D. Performed By: #### C BC, HS TROP, BMP, PT, BNP, PTT #### [address] ECG 12 lead ECGon 01-24-2023 ECG 12 lead ECG [facility] [place] [address] Electrocardiograph Report Signed Patient: Lupe Pickard MR#: [id number] : 1975 Acct:[id number] Age/Sex: 47 / F ADM Date: 01/24/23 Loc: ER Room: Type: [facility] ER Attending Dr: Ordering Provider: [...] ST changes Confirmed by Yogi Mcgraw DO ([id number]) on 01/24/2023 7:22:27 PM Referred By: Electronically Signed By:Yogi Mcgraw DO Transcribed By: MUS Signed By Yogi Mcgraw DO 1921 Normal [facility] ED Note-Physicianon 01-25-20 ED Note-Physician [id number]# 1.00CD:127 Normal [facility] Eosinophils Auto (Bld) [#/Vo l]Ordered By: Laz Lobo on 01-24-2023 Eosinophils (Bld) [#/Vol] 0.1 10*3/uL 0.0-0.45 [facility] Eosinophils/100 WBC Auto (Bl d)Ordered By: Laz Lobo on 01-24-2023 Eosinophils/100 WBC (Bld) 1.6 % . [facility] Erythrocyte distribution wid th Auto (RBC) [Ratio]Ordered By: Laz Lobo on 01-24-2023 Erythrocyte distribution width (RBC) [Ratio] 14.5 % 11.9-15.3 [facility] Glucose [Mass/volume] in Ser um or PlasmaOrdered By: Laz Lobo on 01-24-2023 Glucose [Mass/Vol] 110 mg/dL 70-100 [facility] Comment on above: ADA recommended refe rence rangeRandom Glucose Reference Range is dependent on time and content of last meal. Glucose of more than 200 mg/dL in a nonstressed, ambulatory subject supports the diagnosis of Diabetes Mellitus. Hematocrit Auto (Bld) [Volum e fraction]Ordered By: Laz Lobo on 01-24-2023 Hematocrit (Bld) [Volume fraction] 39.8 % 34.0-46.4 [facility] Hemoglobin [Mass/volume] in BloodOrdered By: Laz Lobo on 01-24-2023 Hemoglobin (Bld) [Mass/Vol] 13.2 g/dL 11.8-15.4 [facility] INR in Platelet poor plasma by Coagulation assayOrdered By: Laz Lobo on 01-24-2023 INR Coag (PPP) [Relative time] 1.0 {INR} [facility] Comment on above: INR Therapeutic Rang [...] on 01-24-2023 Ketones (U) [Mass/Vol] Negative Negative [facility] Lab Reportson 01-24-2023 Lab Reports [id number]# 1.00CD:127 Normal [facility] Laboratory - CoagulationOrde red By: Laz Lobo on 01-24-2023 PT Coag (PPP) [Time] 11.5 s 9.0-12.9 [facility] Leukocytes [#/volume] correc emily for nucleated erythrocytes in Blood by Automated counOrdered By: Laz Lobo on 01-24-2023 WBC corrected for nucl RBC Auto (Bld) [#/Vol] 7.6 10*3/uL 3.8-11.6 [facility] Lymphocytes Auto (Bld) [#/Vo l]Ordered By: Laz Lobo on 01-24-2023 Lymphocytes (Bld) [#/Vol] 2.0 10*3/uL 1.00-4.8 [facility] Lymphocytes/100 WBC Auto (Bl d)Ordered By: Laz Lobo on 01-24-2023 Lymphocytes/100 WBC (Bld) 26.6 % . [facility] MCH Auto (RBC) [Entitic mass ]Ordered By: Laz Lobo on 01-24-2023 MCH (RBC) [Entitic mass] 28.8 pg 24.7-34.3 [facility] MCHC Auto (RBC) [Mass/Vol]Or dered By: Laz Lobo on 01-24-2023 MCHC (RBC) [Mass/Vol] 33.1 g/dL 32.0-35.0 [facility] MCV Auto (RBC) [Entitic vol] Ordered By: Laz Lobo on 01-24-2023 MCV (RBC) [Entitic vol] 86.8 fL 80-100 [facility] Monocyte distribution width [Entitic volume] in Blood by AutomatedOrdered By: Laz Lobo on 01-24-2023 Monocyte distribution width Auto (Bld) [Entitic vol] 16.72 % 0.00-20.00 [facility] Monocytes Auto (Bld) [#/Vol] Ordered By: Laz Lobo on 01-24-2023 Monocytes (Bld) [#/Vol] 0.2 10*3/uL 0.0-0.8 [facility] Monocytes/100 WBC Auto (Bld) Ordered By: Laz Lobo on 01-24-2023 Monocytes/100 WBC (Bld) 2.7 % . [facility] Natriuretic peptide B [Mass/ Vol]Ordered By: Laz Lobo on 01-24-2023 Natriuretic peptide B (Bld) [Mass/Vol] 37.0 pg/mL 5-100 [facility] Neutrophils Auto (Bld) [#/Vo l]Ordered By: Laz Lobo on 01-24-2023 Neutrophils (Bld) [#/Vol] 5.2 10*3/uL 1.8-7.7 [facility] Neutrophils/100 WBC Auto (Bl d)Ordered By: Laz Lobo on 01-24-2023 Neutrophils/100 WBC (Bld) 68.4 % . [facility] Nitrite Test strip Ql (U)Ord ered By: Laz Lobo on 01-24-2023 Nitrite Ql (U) Negative Negative [facility] No Panel InformationOrdered By: Laz Lobo on 01-24-2023 D-Dimer Quantitative (PE/DVT) < 200 ng/mL 0-243 [facility] Comment on above: The reference range [...] conditions. Estimated GFR (CKD-EPI) > 60.0 mL/Min [facility] Creatinine Clearance (Chem 169.33 [facility] Nucleated erythrocytes [Pres ence] in Blood by Automated countOrdered By: Laz Lobo on 01-24-2023 Nucleated RBC Auto Ql (Bld) 0.1 /100{WBC} 0-0.5 [facility] Outside [facility]son 01-24-2023 Outside Labs [id number] #1.00CD:127 Normal [facility] Partial Thromboplastin Timeo n 01-24-2023 aPTT Coag (Bld) [Time] 29.9 s Normal 25.1-36.5 [facility] Comment on above: Performed By: #### C BC, HS TROP, BMP, PT, BNP, PTT #### [facility] [address] Platelet mean volume Auto (B ld) [Entitic vol]Ordered By: Laz Lobo on 01-24-2023 Platelet mean volume (Bld) [Entitic vol] 8.2 fL 6.3-10.7 [facility] Platelets Auto (Bld) [#/Vol] Ordered By: Laz Lobo on 01-24-2023 Platelets (Bld) [#/Vol] 350 10*3/uL 150-450 [facility] Potassium [Moles/volume] in Serum or PlasmaOrdered By: Laz Lobo on 01-24-2023 Potassium [Moles/Vol] 3.8 mmol/L 3.5-5.1 [facility] Protein Auto test strip (U) [Mass/Vol]Ordered By: Laz Lobo on 01-24-2023 Protein (U) [Mass/Vol] Negative Negative [facility] Prothrombin Time INRon 01-24 INR Coag (PPP) [Relative time] 1.0 {INR} Normal [facility] Comment on above: Result Comment: INR Therapeutic [...] - 4.5 Performed By: #### C BC, HS TROP, BMP, PT, BNP, PTT #### [facility] [address] PT Coag (PPP) [Time] 11.5 s Normal 9.0-12.9 [facility] Comment on above: Performed By: #### C BC, HS TROP, BMP, PT, BNP, PTT #### [address] RBC Auto (Bld) [#/Vol]Ordere d By: Laz Lobo on 01-24-2023 RBC (Bld) [#/Vol] 4.59 10*6/uL 3.60-5.00 [facility] Serum or plasma anion gap de terminationOrdered By: Laz Lobo on 01-24-2023 Anion gap [Moles/Vol] 8.8 mmol/L 6.0-15.0 [facility] Sodium [Moles/volume] in Ser um or PlasmaOrdered By: Laz Lobo on 01-24-2023 Sodium [Moles/Vol] 139 mmol/L 136-145 [facility] Specific gravity Auto test s trip (U) [Rel density]Ordered By: Laz Lobo on 01-24-2023 Specific gravity (U) [Rel density] 1.004 1.001-1.030 [facility] Troponin I High Sensitivityo n 01-24-2023 Troponin I High Sensitivity < 2.3 Normal 0.0-15.0 [facility] Comment on above: Result Comment: PERF ORMED BY: [place] [address] PATHOLOGIST [employer] WENDY CLARK M.D. Performed By: #### C BC, HS TROP, BMP, PT, BNP, PTT #### [address] Troponin I.cardiac [Mass/vol ume] in Serum or Plasma by Detection limit <= 0.01 ng/Ordered By: Laz Lobo on 01-24-2023 Troponin I.cardiac DL <= 0.01 ng/mL [Mass/Vol] < 2.3 pg/mL 0.0-15.0 [facility] Urea nitrogen [Mass/volume] in Serum or PlasmaOrdered By: Laz Lobo on 01-24-2023 Urea nitrogen [Mass/Vol] 7 mg/dL 12-21 [facility] Urinalysison 01-24-2023 Appearance (U) Clear Normal Clear [facility] Comment on above: Order Comment: Reaso n for Exam Generalized Anxiety Disorder (SANDRA);Medication management Performed By: #### C MP, CBC #### [place] [address] [place] #### VITD+D2+D3 #### [facility] , Bilirubin,Urine Negative Normal Negative [facility] Comment on above: Order Comment: Reaso n for Exam Generalized Anxiety Disorder (SANDRA);Medication management Performed By: #### C MP, CBC #### [place] [address] [place] #### VITD+D2+D3 #### [facility] , Color (U) Yellow Normal Yellow [facility] Comment on above: Order Comment: Reaso n for Exam Generalized Anxiety Disorder (SANDRA);Medication management Performed By: #### C MP, CBC #### [place] [address] [place] #### VITD+D2+D3 #### [facility] , Glucose Ql (U) Normal Normal Normal [facility] Comment on above: Order Comment: Reaso n for Exam Generalized Anxiety Disorder (SANDRA);Medication management Performed By: #### C MP, CBC #### [place] [address] [place] #### VITD+D2+D3 #### [facility] , Ketones Ql (U) Negative Normal Negative [facility] Comment on above: Order Comment: Reaso n for Exam Generalized Anxiety Disorder (SANDRA);Medication management Performed By: #### C MP, CBC #### [place] [address] [place] #### VITD+D2+D3 #### [facility] , Leukocyte esterase Test strip Ql (U) Negative Normal Negative [facility] Comment on above: Order Comment: Reaso n for Exam Generalized Anxiety Disorder (SANDRA);Medication management Performed By: #### C MP, CBC #### [address] #### VITD+D2+D3 #### [facility] , Nitrite,Urine Negative Normal Negative [facility] Comment on above: Order Comment: Reaso n for Exam Generalized Anxiety Disorder (SANDRA);Medication management Performed By: #### C MP, CBC #### [address] #### VITD+D2+D3 #### [facility] , Occult Blood,Urine Negative Normal Negative [facility] Comment on above: Order Comment: Reaso n for Exam Generalized Anxiety Disorder (SANDRA);Medication management Result Comment: PERF ORMED BY: [place] [address] PATHOLOGIST [employer] WENDY CLARK M.D. Performed By: #### C MP, CBC #### [address] #### VITD+D2+D3 #### [facility] , pH (U) 7.0 [pH] Normal 5.0-9.0 [facility] Comment on above: Order Comment: Reaso n for Exam Generalized Anxiety Disorder (SANDRA);Medication management Performed By: #### C MP, CBC #### [place] [address] [place] #### VITD+D2+D3 #### [facility] , Protein,Urine Negative Normal Negative [facility] Comment on above: Order Comment: Reaso n for Exam Generalized Anxiety Disorder (SANDRA);Medication management Performed By: #### C MP, CBC #### [place] [address] [place] #### VITD+D2+D3 #### [facility] , Specificy [place],Urine 1.004 Normal 1.001-1.030 [facility] Comment on above: Order Comment: Reaso n for Exam Generalized Anxiety Disorder (SANDRA);Medication management Performed By: #### C MP, CBC #### [place] [address] [place] #### VITD+D2+D3 #### [facility] , Urobilinogen,Urine Normal Normal Normal [facility] Comment on above: Order Comment: Reaso n for Exam Generalized Anxiety Disorder (SANDRA);Medication management Performed By: #### C MP, CBC #### [facility] [address] [place] [address] [place] #### VITD+D2+D3 #### [facility] , Urine clarity by refractomet ry automatedOrdered By: Laz Lobo on 01-24-2023 Clarity Refractometry automated (U) Clear Clear [facility] Urine glucose measurement by automated test strip (mass/volume)Ordered By: Laz Lobo on 01-24-2023 Glucose Auto test strip (U) [Mass/Vol] Normal mg/dL Normal [facility] Urine hemoglobin detection b y automated test stripOrdered By: Laz Lobo on 01-24-2023 Hemoglobin Auto test strip Ql (U) Negative Negative [facility] Urine leukocyte esterase det ection by automated test stripOrdered By: Laz Lobo on 01-24-2023 Leukocyte esterase Auto test strip Ql (U) Negative Negative [facility] Urobilinogen Auto test strip (U) [Mass/Vol]Ordered By: Laz Lobo on 01-24-2023 Urobilinogen (U) [Mass/Vol] Normal mg/dL Normal [facility] WBC Auto (Bld) [#/Vol]Ordere d By: Laz Lobo on 01-24-2023 WBC (Bld) [#/Vol] 7.6 10*3/uL 3.8-11.6 [facility] XR chest 1V portableon 01-24 XR chest 1V portable [facility] Main [place] [address] [place] [address] XRay Report Signed Patient: Lupe Pickard MR#: [id number] : 1975 Acct:[id number] Age/Sex: 47 / F ADM Date: 01/24/23 Loc: ER Room: Type: [facility] ER Attending Dr: Copies to: MD Yogi Gill DO Ordering Provider: Laz Lobo MD Date of Service: 01/24/23 XR/XR chest 1V portable: Shortness of Breath/Dyspnea SINGLE VIEW CHEST CLINICAL HISTORY: Elevated blood pressure, shortness of breath getting worse heart palpitations COMPARISON: Chest 12/30/2022 FINDINGS: Heart normal size. Lungs are clear. No free air. XR/XR chest 1V portable IMPRESSION: NO ACUTE FINDINGS Impression dictated by: Bob Neff Jr., D.O.01/24/2023 10:55 AM Dictation Location: [place] [address] Transcribed By: [facility] 01/24/23 1055 Dictated By: Bob Neff Jr, DO 01/24/23 1055 Signed By: 01/24/23 1055 Normal [facility] pH Auto test strip (U)Ordere d By: Laz Lobo on 01-24-2023 pH (U) 7.0 [pH] 5.0-9.0 [facility] Basic Metabolic Panelon 12-29 Anion gap [Moles/Vol] 10.1 mmol/L Normal 6.0-15.0 [facility] Comment on above: Performed By: #### C MP, CBC #### [facility] [address] [place] [address] [place] #### VITD+D2+D3 #### [facility] , Calcium [Mass/Vol] 9.1 mg/dL Normal 8.6-10.3 [facility] Comment on above: Performed By: #### C MP, CBC #### [facility] [address] [place] [address] [place] #### VITD+D2+D3 #### [facility] , Chloride [Moles/Vol] 105 mmol/L Normal 98-107 [facility] Comment on above: Performed By: #### C MP, CBC #### [place] [address] [place] #### VITD+D2+D3 #### [facility] , CO2 [Moles/Vol] 28.2 mmol/L Normal 21.0-31.0 [facility] Comment on above: Performed By: #### C MP, CBC #### [place] [address] [place] #### VITD+D2+D3 #### [facility] , Creatinine [Mass/Vol] 0.52 mg/dL Low 0.60-1.20 [facility] Comment on above: Performed By: #### C MP, CBC #### [address] #### VITD+D2+D3 #### [facility] , GFR/1.73 sq M.predicted MDRD (S/P/Bld) [Vol rate/Area] mL/min/{1.73_m2} Normal [facility] Comment on above: Performed By: #### C MP, CBC #### [place] [address] [place] #### VITD+D2+D3 #### [facility] , Glucose [Mass/Vol] 84 mg/dL Normal 70-100 [facility] Comment on above: Result Comment: [place] Glucose Reference Range is dependent on time and content of last meal. Glucose of more than 200 mg/dL in a nonstressed, ambulatory subject supports the diagnosis of Diabetes Mellitus. ADA recommended reference range Performed By: #### C MP, CBC #### [place] [address] [place] #### VITD+D2+D3 #### [facility] , Potassium [Moles/Vol] 4.3 mmol/L Normal 3.5-5.1 [facility] Comment on above: Performed By: #### C MP, CBC #### [facility] [address] [place] [address] [place] #### VITD+D2+D3 #### [facility] , Sodium [Moles/Vol] 139 mmol/L Normal 136-145 [facility] Comment on above: Performed By: #### C MP, CBC #### [facility] [address] [place] [address] [place] #### VITD+D2+D3 #### [facility] , Urea nitrogen [Mass/Vol] 8 mg/dL Normal 7-25 [facility] Comment on above: Performed By: #### C MP, CBC #### [facility] [address] [place] [address] [place] #### VITD+D2+D3 #### [facility] , Calcium [Mass/volume] in Ser um or PlasmaOrdered By: Phillip Benjamin on 01-21-2023 Calcium [Mass/Vol] 9.1 mg/dL 8.6-10.3 [facility] Carbon dioxide, total [Moles /volume] in Serum or PlasmaOrdered By: Phillip Benjamin on 01-21-2023 CO2 [Moles/Vol] 28.2 mmol/L 21.0-31.0 [facility] Chloride [Moles/volume] in S zakia or PlasmaOrdered By: Phillip Benjamin on 01-21-2023 Chloride [Moles/Vol] 105 mmol/L 98-107 [facility] Cholesterol [Mass/volume] in Serum or PlasmaOrdered By: Franklyn Madera on 01-21-2023 Cholesterol [Mass/Vol] 153 mg/dL 140-200 [facility] Comment on above: Chol less than 200 m g/dl low riskChol 201-239 mg/dl borderline riskChol 240 mg/dl and greater high risk Cholesterol in LDL Calc [Mas s/Vol]Ordered By: Franklyn Madera on 01-21-2023 Cholesterol in LDL [Mass/Vol] 60 mg/dL 0-100 [facility] Comment on above: LDL ATP III CLASSIFI CATIONLDL less than 100 mg/dL OptimalLDL 100-129 mg/dL Near or above optimalLDL 130-159 mg/dL Borderline highLDL 160-189 mg/dL HighLDL greater than 189 mg/dL Very high Cholesterol in VLDL Calc [Ma ss/Vol]Ordered By: Franklyn Madera on 01-21-2023 Cholesterol in VLDL [Mass/Vol] 50 mg/dL [facility] Consent for Treatmenton 12-29 Consent for Treatment [id number] #1.00CD:127 Normal [facility] Creatinine [Mass/volume] in Serum or PlasmaOrdered By: Phillip Benjamin on 01-21-2023 Creatinine [Mass/Vol] 0.52 mg/dL 0.60-1.20 [facility] Glucose [Mass/volume] in Ser um or PlasmaOrdered By: Phillip Benjamin on 01-21-2023 Glucose [Mass/Vol] 84 mg/dL 70-100 [facility] Comment on above: ADA recommended refe rence rangeRandom Glucose Reference Range is dependent on time and content of last meal. Glucose of more than 200 mg/dL in a nonstressed, ambulatory subject supports the diagnosis of Diabetes Mellitus. Lipid Panelon 01-21-2023 Cholesterol [Mass/Vol] 153 mg/dL Normal 140-200 [facility] Comment on above: Result Comment: Chol less than 200 mg/dl low risk Chol 201-239 mg/dl borderline risk Chol 240 mg/dl and greater high risk Performed By: #### C MP, CBC #### [facility] [address] [place] [address] [place] #### VITD+D2+D3 #### [facility] , Cholesterol in HDL [Mass/Vol] 42 mg/dL Normal 23-92 [facility] Comment on above: Result Comment: HDL CHOL ATP-III CLASSIFICATION Cardiovascular Risk HDL > or equal to 60 mg/dL LOW HDL < 40 mg/dL HIGH Performed By: #### C MP, CBC #### [facility] [address] [place] [address] [place] #### VITD+D2+D3 #### [facility] , Cholesterol.total/Ch olesterol in HDL [Mass ratio] 3.6 {ratio} Normal <5.0 [facility] Comment on above: Result Comment: PERF ORMED BY: [place] [address] PATHOLOGIST [employer] WENDY CLARK M.D. Performed By: #### C MP, CBC #### [place] [address] [place] #### VITD+D2+D3 #### [facility] , LDL Cholesterol,Calculat ed 60 mg/dL Normal 0-100 [facility] Comment on above: Result Comment: LDL ATP III CLASSIFICATION LDL less than 100 mg/dL Optimal LDL 100-129 mg/dL Near or above optimal LDL 130-159 mg/dL Borderline high LDL 160-189 mg/dL High LDL greater than 189 mg/dL Very high Performed By: #### C MP, CBC #### [place] [address] [place] #### VITD+D2+D3 #### [facility] , Triglyceride w/Reflex 254 mg/dL High 0-149 [facility] Comment on above: Result Comment: TRIG ATP III CLASSIFICATION TRIG less than 150 mg/dL Normal TRIG 150-199 mg/dL Borderline high TRIG 200-500 mg/dL High TRIG greater than 500 mg/dL Very high Standard traceable to the Center for Disease Conrtrol and Prevention (CDC) test method. Performed By: #### C MP, CBC #### [place] [address] [place] #### VITD+D2+D3 #### [facility] , VLDL CHOLESTEROL 50 mg/dL Normal [facility] Comment on above: Performed By: #### C MP, CBC #### [place] [address] [place] #### VITD+D2+D3 #### [facility] , No Panel InformationOrdered By: Phillip Benjamin on 01-21-2023 Estimated GFR (CKD-EPI) > 60.0 mL/Min [facility] Creatinine Clearance (Chem N/A [facility] No Panel Informationon 01-21 > 60.0 Normal [facility] [employer] [address] DO Work Phone: [phone] 10.1\S\10.1 Normal 6.0-15.0 [facility] [address] DO Work Phone: [phone] 9.1\S\9.1 Normal 8.6-10.3 [facility] [employer] [address] DO Work Phone: [phone] 28.2\S\28.2 Normal 21.0-31.0 [facility] [employer] [address] DO Work Phone: [phone] 105\S\105 Normal 98-107 [facility] [employer] [address] DO Work Phone: [phone] 4.3\S\4.3 Normal 3.5-5.1 [facility] [employer] [address] DO Work Phone: [phone] 139\S\139 Normal 136-145 [facility] [employer] [address] DO Work Phone: [phone] 0.52\S\0.52 below low threshold 0.60-1.20 -[facility] [employer] [address] DO Work Phone: [phone] 8\S\8 Normal 7-25 [facility] [employer] [address] DO Work Phone: [phone] 84\S\84 Normal 70-100 [facility] [employer] [address] DO Work Phone: [phone] Comment on above: Random Glucose Refer ence Range is dependent on time and content of last meal. Glucose of more than 200 mg/dL in a nonstressed, ambulatory subject supports the diagnosis of Diabetes Mellitus. ADA recommended reference range 0.24\S\0.24 below low threshold 0.45-5.33 [facility] [address] DO Work Phone: [phone] 41.7\S\41.7 Normal 30-100 -[facility] 600 DO Work Phone: Comment on above: VITAMIN D STATUS 25( [place])VITAMIN D RANGE (ng/mL) Deficient <20 Insufficient 20 to <30 Sufficient 30 to 100 Reference: Kirby MF,Adonay NC, Shantelle HOLLOWAY, et al. Evaluation,treatment, and prevention of vitamin D deficiency; an Endocrine Society clinical practice guideline. JCEM. 2010; 96(7):1911-30.PERFORMED BY:[facility] [place], [place] [id number] MEDICAL DIRECTORWENDY CLARK M.D. Potassium [Moles/volume] in Serum or PlasmaOrdered By: Phillip Benjamin on 01-21-2023 Potassium [Moles/Vol] 4.3 mmol/L 3.5-5.1 [facility] Serum or plasma anion gap de terminationOrdered By: Phillip Benjamin on 01-21-2023 Anion gap [Moles/Vol] 10.1 mmol/L 6.0-15.0 [facility] Serum or plasma high density lipoprotein (HDL) cholesterol measurementOrdered By: Franklyn Madera on 01-21-2023 Cholesterol in HDL [Mass/Vol] 42 mg/dL 23-92 [facility] Comment on above: HDL CHOL ATP-III CLA SSIFICATION Cardiovascular RiskHDL > or equal to 60 mg/dL LOWHDL < 40 mg/dL HIGH Serum or plasma total choles terol/high density lipoprotein (HDL) cholesterol mass ratOrdered By: Franklyn Madera on 01-21-2023 Cholesterol.total/Ch olesterol in HDL [Mass ratio] 3.6 {ratio} <5.0 [facility] Sodium [Moles/volume] in Ser um or PlasmaOrdered By: Phillip Benjamin on 01-21-2023 Sodium [Moles/Vol] 139 mmol/L 136-145 [facility] Thyroid Stimulating Hormoneo n 01-21-2023 TSH Qn 0.24 m[IU]/L Low 0.45-5.33 [facility] Comment on above: Performed By: #### C MP, CBC #### [facility] [address] [place] [address] [place] #### VITD+D2+D3 #### [facility] , Thyrotropin [Units/volume] i n Serum or PlasmaOrdered By: Phillip Benjamin on 01-21-2023 TSH Qn 0.24 m[IU]/L 0.45-5.33 [facility] Triglyceride [Mass/volume] i n Serum or PlasmaOrdered By: Franklyn Madera on 01-21-2023 Triglyceride [Mass/Vol] 254 mg/dL 0-149 [facility] Comment on above: TRIG ATP III CLASSIF ICATIONTRIG less than 150 mg/dL NormalTRIG 150-199 mg/dL Borderline highTRIG 200-500 mg/dL High TRIG greater than 500 mg/dL Very highStandard traceable to the Center for Disease Conrtrol and Prevention (CDC) test method. Urea nitrogen [Mass/volume] in Serum or PlasmaOrdered By: Phillip Benjamin on 01-21-2023 Urea nitrogen [Mass/Vol] 8 mg/dL 7-25 [facility] Vitamin D 25 Hydroxy Totalon 01-21-2023 Vitamin D 25 Hydroxy Total 41.7 ng/mL Normal 30-100 [facility] Comment on above: Result Comment: QASIM MIN D STATUS 25(OH)VITAMIN D RANGE (ng/mL) Deficient <20 Insufficient 20 to <30 Sufficient 30 to 100 Reference: Kirby MF,Adonay NC, Shantelle HOLLOWAY, et al. Evaluation,treatment, and prevention of vitamin D deficiency; an Endocrine Society clinical practice guideline. JCEM. 2010; 96(7):1911-30. PERFORMED BY: [place] [address] PATHOLOGIST [employer] WENDY CLARK M.D. Performed By: #### C MP, CBC #### [place] [address] [place] #### VITD+D2+D3 #### [facility] , Vitamin D+Metabolites [Mass/ volume] in Serum or PlasmaOrdered By: Phillip Benjamin on 01-21-2023 Vitamin D+Metabolites [Mass/Vol] 41.7 ng/mL 30-100 [facility] Comment on above: VITAMIN D STATUS 25( [place])VITAMIN D RANGE (ng/mL) Deficient <20 Insufficient 20 to <30Sufficient 30 to 100Reference: Kirby MF,Adonay INMAN, Shantelle HOLLOWAY, et al. Evaluation,treatment, and prevention of vitamin D deficiency; an Endocrine Society clinical practice guideline. JCEM. 2010; 96(7):1911-30. Patient Eval Forms Officeon 01-19-2023 Patient Eval Forms Office [id number] 2#1.00CD:127 [facility] Consenton 01-18-2023 Consent [id number] 9#1.00CD:127 [facility] Consent for Treatmenton 12-29 Consent for Treatment [id number] #1.00CD:127 [facility] Patient Eval Forms Officeon 01-18-2023 Patient Eval Forms Office [id number] 2#1.00CD:127 [facility] Consent for Treatmenton Consent for Treatment [id number] #1.00CD:127 [facility] Consent for Treatment [id number] #1.00CD:127 [facility] Discharge Instructionson Discharge Instructions [id number] 9#1.00CD:127 [facility] ED Clinical Summaryon 2022 ED Clinical Summary [address] [address] ED Clinical Summary Person Information Name: LUPE PICKARD/[facility] Age: 47 Years : 1975 Sex: Female Language: Chadian PCP: Diony Singh DO Marital Status: Single Phone: [phone] Visit Id: Visit Reason: Lower leg pain-swelling; [...] Complete 01/05/2023 16:51:44 01/05/2023 16:51:44 01/05/2023 16:51:44 Complete 01/05/2023 17:01:44 01/05/2023 17:09:32 01/05/2023 17:54:13 Discharge Complete 01/05/2023 17:46:22 01/05/2023 17:57:33 01/05/2023 17:57:33 Transfer Complete 01/05/2023 17:57:33 01/05/2023 17:57:33 01/05/2023 17:57:33 ADDRESS: [address] [place] [phone] [facility] DOC NOTES: MEDICAL INFORMATION: Prescriptions Given: Medications [...] Cramps Follow up: With: Address: When: [facility] [place] [address] In 3 days 01/08/2023 Comments: Call the [...] pain, bilateral; Pain in left leg Normal [facility] ED Note-Physicianon 01-06-20 ED Note-Physician Basic Information Time Seen: Sergei Hurd PA-C 01/05/2023 16:25 Chief Complaint pt c/o having blood pressure issues, pt was seen [place] [facility] [place] did have an elevated ddimer and had a cta of her chest. pt is supposed to have an us of both legs tomorrow but has had throbbing in both legs, heavy feeling in calf. History of Present Illness 47-year-old female presents ED with complaint of lower extremity pain, concern for DVT. Patient has been seen multiple times at [facility] over the last month with concern for palpitations. Patient is also had alterations in her blood pressure, alternating hypertension with normal range blood pressure which she is found very concerning. Patient was recently started on blood pressure medications which have been being adjusted by her PCP as well. Patient was seen last week at [facility]. As part of this workup for palpitations, [...] and Complexity of Problems Differential Diagnosis: [] [facility] Data External documents reviewed: [] My EKG [...] Singh In 3 days 01/08/2023 EDT [address] [place] [address] [address] [place] [address]- Additional Instructions: Call the office of your [...] nearest Emergency (more content not included)... Normal [facility] Comment on above: Result Comment: Elec [...] liquor (44 mL). General instructions ? Take qbdx-qxr-cngpzuz and prescription medicines only as told by [...] provider. Document Revised: 01/25/2022 Document Reviewed: 01/25/2022 [employer] Patient Education ? 2022 [employer] Orthopedics Leg Cramps Leg cramps occur when [...] This coul (more content not included)... Normal [facility] ED Patient Summaryon 023 ED Patient Summary [address] [address] Patient Discharge Instructions Person Information Name: LUPE PICKARD Age: 47 Years Arrival Date: 01/05/2023 16:19:27 Discharge Diagnosis: Lower extremity pain, bilateral; Pain in left leg Primary Care Physician: Diony Singh DO Provider Information Primary Provider: Christiano Solis M.D. Advanced Dry Roaster:Sergei Hurd PA-C The exam and treatment you received in the Emergency Department were for an urgent problem and are not intended as complete care. It is important that you follow up with a doctor, nurse practitioner, or physician?s critical care physician assistant for ongoing care. If your symptoms [...] Follow-up Instructions: With: Address: When: Diony Singh [address] [place] [address] [place] [address] In 3 days 01/08/2023 Comments: Call the [...] opioids can be used to help relieve zvnvdbpp-ih-lxpucc pain and are often prescribed following a [...] of u (more content not included)... Normal [facility] Magnesiumon 01-05-2023 Magnesium [Mass/Vol] 2.1 mg/dL Normal 1.3-2.4 [facility] Comment on above: Performed By: #### 2 [id number] ####[facility] [address] [place] [address] LE Venous Duplex Scot byrnes 01-05-2023 LE Venous Duplex Bilateral Exam Date/Time: [...] Butler MD Transcribed by: MUSA Technologist: MACHO Ram [facility] Consent for Treatmenton 080 Consent for Treatment [id number] #1.00CD:127 Normal [facility] Physician Orderon 01-04-2023 Physician Order [id number]#1.00CD:127 Normal [facility] Progress Note-Nurseon 2022 Progress Note-Nurse [id number] #1.00CD:127 Normal [facility] CT head/brain wo conon 12-31 CT head/brain wo con [facility] [place] [address] CT Scan Report Signed Patient: Lupe Pickard MR#: [id number] : 1975 Acct:[id number] Age/Sex: 47 / F ADM Date: 12/30/22 Loc: ER Room: Type: [facility] ER Attending Dr: Copies to: [...] Neff Jr., D.O.12/31/2022 8:17 AM Dictation Location: [place] [address] Transcribed By: [facility] 12/31/22816 Dictated By: Bob Neff Jr, DO 12/31/22811 Signed By: 12/31/22816 Normal [facility] ED Note-Physicianon 01-01-20 ED Note-Physician [id number] #1.00CD:127 Normal [facility] Activated partial thrombopla stin time (aPTT) in platelet poor plasma by coagulation aOrdered By: Mariya Kumari on 12-30-2022 aPTT Coag (PPP) [Time] 30.5 s 25.1-36.5 [facility] B-Type Natriuretic Peptideon 12-30-2022 Natriuretic peptide B (Bld) [Mass/Vol] 55.0 pg/mL Normal 5-100 [facility] Comment on above: Result Comment: PERF ORMED BY: [place] [address] PATHOLOGIST FLASK CARRIER WENDY CLARK M.D. Performed By: #### C MP, CBC #### [address] #### VITD+D2+D3 #### [facility] , Basic Metabolic Panelon 08 Anion gap [Moles/Vol] 11.7 mmol/L Normal 6.0-15.0 [facility] Comment on above: Performed By: #### C MP, CBC #### [address] #### VITD+D2+D3 #### [facility] , Calcium [Mass/Vol] 8.4 mg/dL Low 8.6-10.3 [facility] Comment on above: Performed By: #### C MP, CBC #### [facility] [address] [place] [address] [place] #### VITD+D2+D3 #### [facility] , Chloride [Moles/Vol] 104 mmol/L Normal 98-107 [facility] Comment on above: Performed By: #### C MP, CBC #### [place] [address] [place] #### VITD+D2+D3 #### [facility] , CO2 [Moles/Vol] 28.0 mmol/L Normal 21.0-31.0 [facility] Comment on above: Performed By: #### C MP, CBC #### [address] #### VITD+D2+D3 #### [facility] , Creatinine [Mass/Vol] 0.56 mg/dL Low 0.60-1.20 [facility] Comment on above: Performed By: #### C MP, CBC #### [address] #### VITD+D2+D3 #### [facility] , Creatinine Clr Calc Pharmacy 171.83 Normal [facility] Comment on above: Result Comment: PERF ORMED BY: [place] [address] PATHOLOGIST FLASK CARRIER WENDY CLARK M.D. Performed By: #### C MP, CBC #### [address] #### VITD+D2+D3 #### [facility] , GFR/1.73 sq M.predicted MDRD (S/P/Bld) [Vol rate/Area] mL/min/{1.73_m2} Normal [facility] Comment on above: Performed By: #### C MP, CBC #### [place] [address] [place] #### VITD+D2+D3 #### [facility] , Glucose [Mass/Vol] 87 mg/dL Normal 70-100 [facility] Comment on above: Result Comment: [place] Glucose Reference Range is dependent on time and content of last meal. Glucose of more than 200 mg/dL in a nonstressed, ambulatory subject supports the diagnosis of Diabetes Mellitus. ADA recommended reference range Performed By: #### C MP, CBC #### [place] [address] [place] #### VITD+D2+D3 #### [facility] , Potassium [Moles/Vol] 3.7 mmol/L Normal 3.5-5.1 [facility] Comment on above: Performed By: #### C MP, CBC #### [place] [address] [place] #### VITD+D2+D3 #### [facility] , Sodium [Moles/Vol] 140 mmol/L Normal 136-145 [facility] Comment on above: Performed By: #### C MP, CBC #### [facility] [address] [place] [address] [place] #### VITD+D2+D3 #### [facility] , Urea nitrogen [Mass/Vol] 7 mg/dL Normal 7-25 [facility] Comment on above: Performed By: #### C MP, CBC #### [facility] [address] [place] [address] [place] #### VITD+D2+D3 #### [facility] , Basophils Auto (Bld) [#/Vol] Ordered By: Mariya Kumari on 12-30-2022 Basophils (Bld) [#/Vol] 0.1 10*3/uL 0.0-0.2 [facility] Basophils/100 WBC Auto (Bld) Ordered By: Mariya Kumari on 12-30-2022 Basophils/100 WBC (Bld) 1.3 % . [facility] CT angio chest PE protocolon 12-30-2022 CT angio chest PE protocol [facility] [place] [address] CT Scan Report Signed with Sara Patient: Lupe Pickard MR#: [id number] : 1975 Acct:[id number] Age/Sex: 47 / F ADM Date: 12/30/22 Loc: ER Room: Type: [facility] ER Attending Dr: Copies to: Mariya Kumari [...] 8:08 PM Dictation Location: RADIO-PC-13 Transcribed By: [facility] 12/30/222007 Dictated By: Ernie Roper II, MD 12/30/222003 Signed By: 08/03/23 2008 Normal [facility] Calcium [Mass/volume] in Ser um or PlasmaOrdered By: Mariya Kumari on 12-30-2022 Calcium [Mass/Vol] 8.4 mg/dL 8.6-10.3 [facility] Carbon dioxide, total [Moles /volume] in Serum or PlasmaOrdered By: Mariya Kumari on 12-30-2022 CO2 [Moles/Vol] 28.0 mmol/L 21.0-31.0 [facility] Chloride [Moles/volume] in S zakia or PlasmaOrdered By: Mariya Kumari on 12-30-2022 Chloride [Moles/Vol] 104 mmol/L 98-107 [facility] Complete Blood Count Auto Di ffon 12-30-2022 Basophils (Bld) [#/Vol] 0.1 10*3/uL Normal 0.0-0.2 [facility] Comment on above: Result Comment: PERF ORMED BY: [place] [address] PATHOLOGIST FL[employer] CARRIER WENDY CLARK M.D. Performed By: #### C MP, CBC #### [address] #### VITD+D2+D3 #### [facility] , Basophils/100 WBC (Bld) 1.3 % Normal . [facility] Comment on above: Performed By: #### C MP, CBC #### [address] #### VITD+D2+D3 #### [facility] , Eosinophils (Bld) [#/Vol] 0.1 10*3/uL Normal 0.0-0.45 [facility] Comment on above: Performed By: #### C MP, CBC #### [address] #### VITD+D2+D3 #### [facility] , Eosinophils/100 WBC (Bld) 1.5 % Normal . [facility] Comment on above: Performed By: #### C MP, CBC #### [place] [address] [place] #### VITD+D2+D3 #### [facility] , Erythrocyte distribution width (RBC) [Ratio] 14.4 % Normal 11.9-15.3 [facility] Comment on above: Performed By: #### C MP, CBC #### [facility] [address] [place] [address] [place] #### VITD+D2+D3 #### [facility] , Hematocrit (Bld) [Volume fraction] 40.1 % Normal 34.0-46.4 [facility] Comment on above: Performed By: #### C MP, CBC #### [place] [address] [place] #### VITD+D2+D3 #### [facility] , Hemoglobin (Bld) [Mass/Vol] 13.3 g/dL Normal 11.8-15.4 [facility] Comment on above: Performed By: #### C MP, CBC #### [place] [address] [place] #### VITD+D2+D3 #### [facility] , Lymphocytes (Bld) [#/Vol] 3.2 10*3/uL Normal 1.00-4.8 [facility] Comment on above: Performed By: #### C MP, CBC #### [facility] [address] [place] [address] [place] #### VITD+D2+D3 #### [facility] , Lymphocytes/100 WBC (Bld) 33.6 % Normal . [facility] Comment on above: Performed By: #### C MP, CBC #### [place] [address] [place] #### VITD+D2+D3 #### [facility] , MCH (RBC) [Entitic mass] 28.8 pg Normal 24.7-34.3 [facility] Comment on above: Performed By: #### C MP, CBC #### [place] [address] [place] #### VITD+D2+D3 #### [facility] , MCV (RBC) [Entitic vol] 87.2 fL Normal 80-100 [facility] Comment on above: Performed By: #### C MP, CBC #### [place] [address] [place] #### VITD+D2+D3 #### [facility] , Mean Corpuscular HGB Conc 33.1 g/dL Normal 32.0-35.0 [facility] Comment on above: Performed By: #### C MP, CBC #### [address] #### VITD+D2+D3 #### [facility] , Monocytes (Bld) [#/Vol] 0.4 10*3/uL Normal 0.0-0.8 [facility] Comment on above: Performed By: #### C MP, CBC #### [place] [address] [place] #### VITD+D2+D3 #### [facility] , Monocytes/100 WBC (Bld) 16.70 % Normal 0.00-20.00 [facility] Comment on above: Performed By: #### C MP, CBC #### [place] [address] [place] #### VITD+D2+D3 #### [facility] , Monocytes/100 WBC (Bld) 4.0 % Normal . [facility] Comment on above: Performed By: #### C MP, CBC #### [place] [address] [place] #### VITD+D2+D3 #### [facility] , Neutrophils (Bld) [#/Vol] 5.7 10*3/uL Normal 1.8-7.7 [facility] Comment on above: Performed By: #### C MP, CBC #### [place] [address] [place] #### VITD+D2+D3 #### [facility] , Neutrophils/100 WBC (Bld) 59.6 % Normal . [facility] Comment on above: Performed By: #### C MP, CBC #### [place] [address] [place] #### VITD+D2+D3 #### [facility] , NRBC% 0.1 /100{WBC} Normal 0-0.5 [facility] Comment on above: Performed By: #### C MP, CBC #### [place] [address] [place] #### VITD+D2+D3 #### [facility] , Platelet mean volume (Bld) [Entitic vol] 8.6 fL Normal 6.3-10.7 [facility] Comment on above: Performed By: #### C MP, CBC #### [facility] [address] [place] [address] [place] #### VITD+D2+D3 #### [facility] , Platelets (Bld) [#/Vol] 348 10*3/uL Normal 150-450 [facility] Comment on above: Performed By: #### C MP, CBC #### [place] [address] [place] #### VITD+D2+D3 #### [facility] , RBC (Bld) [#/Vol] 4.60 10*6/uL Normal 3.60-5.00 [facility] Comment on above: Performed By: #### C MP, CBC #### [place] [address] [place] #### VITD+D2+D3 #### [facility] , WBC (Bld) [#/Vol] 9.6 10*3/uL Normal 3.8-11.6 [facility] Comment on above: Performed By: #### C JOSLYN, CBC #### [place] [address] [place] #### VITD+D2+D3 #### [facility] , Creatinine [Mass/volume] in Serum or PlasmaOrdered By: Mariya Kumari on 12-30-2022 Creatinine [Mass/Vol] 0.56 mg/dL 0.60-1.20 [facility] D-Dimer High Sensitivityon 0 12-30-2022 D-Dimer High Sensitivity 334 ng/mL High 0-243 [facility] Comment on above: Result Comment: The reference [...] patients due to co-morbid conditions. PERFORMED BY: [place] [address] PATHOLOGIST FLASK CARRIER WENDY CLARK M.D. Performed By: #### C JOSLYN, CBC #### [place] [address] [place] #### VITD+D2+D3 #### [facility] , ECG 12 lead ECGon 12-30-2022 ECG 12 lead ECG [facility] [place] [address] Electrocardiograph Report Signed Patient: Lupe Pickard MR#: [id number] : 1975 Acct:[id number] Age/Sex: 47 / F ADM Date: 12/30/22 Loc: ER Room: Type: [facility] ER Attending Dr: Ordering Provider: [...] ST abnormality Confirmed by Quoc JOHN DO ([id number]) on 12/31/2022 12:07:56 AM Referred By: Electronically Signed By:Quoc JOHN DO Transcribed By: MUS Signed By Quoc John DO 0 12/31/22 000 Normal [facility] Eosinophils Auto (Bld) [#/Vo l]Ordered By: Mariya Kumari on 12-30-2022 Eosinophils (Bld) [#/Vol] 0.1 10*3/uL 0.0-0.45 [facility] Eosinophils/100 WBC Auto (Bl d)Ordered By: Mariya Kumari on 12-30-2022 Eosinophils/100 WBC (Bld) 1.5 % . [facility] Erythrocyte distribution wid th Auto (RBC) [Ratio]Ordered By: Mariya Kumari on 12-30-2022 Erythrocyte distribution width (RBC) [Ratio] 14.4 % 11.9-15.3 [facility] Glucose [Mass/volume] in Ser um or PlasmaOrdered By: Mariya Kumari on 12-30-2022 Glucose [Mass/Vol] 87 mg/dL 70-100 [facility] Comment on above: ADA recommended refe rence rangeRandom Glucose Reference Range is dependent on time and content of last meal. Glucose of more than 200 mg/dL in a nonstressed, ambulatory subject supports the diagnosis of Diabetes Mellitus. Hematocrit Auto (Bld) [Volum e fraction]Ordered By: Mariya Kumari on 12-30-2022 Hematocrit (Bld) [Volume fraction] 40.1 % 34.0-46.4 [facility] Hemoglobin [Mass/volume] in BloodOrdered By: Mariya Kumari on 12-30-2022 Hemoglobin (Bld) [Mass/Vol] 13.3 g/dL 11.8-15.4 [facility] Laboratory - CoagulationOrde red By: Mariya Kumari on 12-30-2022 PT Coag (PPP) [Time] 10.9 s 9.0-12.9 [facility] Leukocytes [#/volume] correc emily for nucleated erythrocytes in Blood by Automated counOrdered By: Mariya Kumari on 12-30-2022 WBC corrected for nucl RBC Auto (Bld) [#/Vol] 9.6 10*3/uL 3.8-11.6 [facility] Lymphocytes Auto (Bld) [#/Vo l]Ordered By: Mariya Kumari on 12-30-2022 Lymphocytes (Bld) [#/Vol] 3.2 10*3/uL 1.00-4.8 [facility] Lymphocytes/100 WBC Auto (Bl d)Ordered By: Mariya Kumari on 12-30-2022 Lymphocytes/100 WBC (Bld) 33.6 % . [facility] MCH Auto (RBC) [Entitic mass ]Ordered By: Mariya Kumari on 12-30-2022 MCH (RBC) [Entitic mass] 28.8 pg 24.7-34.3 [facility] MCHC Auto (RBC) [Mass/Vol]Or dered By: Mariya Kumari on 12-30-2022 MCHC (RBC) [Mass/Vol] 33.1 g/dL 32.0-35.0 [facility] MCV Auto (RBC) [Entitic vol] Ordered By: Mariya Kumari on 12-30-2022 MCV (RBC) [Entitic vol] 87.2 fL 80-100 [facility] Magnesiumon 12-30-2022 Magnesium [Mass/Vol] 1.9 mg/dL Normal 1.9-2.7 [facility] Comment on above: Result Comment: PERF ORMED BY: [place] [address] PATHOLOGIST FLASK CARRIER WENDY CLARK M.D. Performed By: #### C BC, HS TROP, BMP, PT, BNP, PTT #### [address] Magnesium [Mass/volume] in S zakia or PlasmaOrdered By: Mariya Kumari on 12-30-2022 Magnesium [Mass/Vol] 1.9 mg/dL 1.9-2.7 [facility] Monocyte distribution width [Entitic volume] in Blood by AutomatedOrdered By: Mariya Kumari on 12-30-2022 Monocyte distribution width Auto (Bld) [Entitic vol] 16.70 % 0.00-20.00 [facility] Monocytes Auto (Bld) [#/Vol] Ordered By: Mariya Kumari on 12-30-2022 Monocytes (Bld) [#/Vol] 0.4 10*3/uL 0.0-0.8 [facility] Monocytes/100 WBC Auto (Bld) Ordered By: Mariya Kumari on 12-30-2022 Monocytes/100 WBC (Bld) 4.0 % . [facility] Natriuretic peptide B [Mass/ Vol]Ordered By: Mariya Kumari on 12-30-2022 Natriuretic peptide B (Bld) [Mass/Vol] 55.0 pg/mL 5-100 [facility] Neutrophils Auto (Bld) [#/Vo l]Ordered By: Mariya Kumari on 12-30-2022 Neutrophils (Bld) [#/Vol] 5.7 10*3/uL 1.8-7.7 [facility] Neutrophils/100 WBC Auto (Bl d)Ordered By: Mariya Kumari on 12-30-2022 Neutrophils/100 WBC (Bld) 59.6 % . [facility] No Panel InformationOrdered By: Mariya Kumari on 12-30-2022 D-Dimer Quantitative (PE/DVT) 334 ng/mL 0-243 [facility] Comment on above: The reference range [...] conditions. Estimated GFR (CKD-EPI) > 60.0 mL/Min [facility] Creatinine Clearance (Chem 171.83 [facility] Nucleated erythrocytes [Pres ence] in Blood by Automated countOrdered By: Mariya Kumari on 12-30-2022 Nucleated RBC Auto Ql (Bld) 0.1 /100{WBC} 0-0.5 [facility] Partial Thromboplastin Timeo n 12-30-2022 aPTT Coag (Bld) [Time] 30.5 s Normal 25.1-36.5 [facility] Comment on above: Performed By: #### C MP, CBC #### [facility] [address] [place] [address] #### VITD+D2+D3 #### [facility] , Platelet mean volume Auto (B ld) [Entitic vol]Ordered By: Mariya Kumari on 12-30-2022 Platelet mean volume (Bld) [Entitic vol] 8.6 fL 6.3-10.7 [facility] Platelet poor plasma interna tional normalized ratio (INR) by coagulation assay (relatOrdered By: Mariya Kumari on 12-30-2022 INR Coag (PPP) [Relative time] 0.9 {INR} [facility] Comment on above: INR Therapeutic Rang [...] 12-30-2022 Platelets (Bld) [#/Vol] 348 10*3/uL 150-450 [facility] Potassium [Moles/volume] in Serum or PlasmaOrdered By: Mariya Kumari on 12-30-2022 Potassium [Moles/Vol] 3.7 mmol/L 3.5-5.1 [facility] Prothrombin Time INRon 12-30 INR Coag (PPP) [Relative time] 0.9 {INR} Normal [facility] Comment on above: Result Comment: INR Therapeutic [...] - 4.5 Performed By: #### C MP, CBC #### [address] #### VITD+D2+D3 #### [facility] , PT Coag (PPP) [Time] 10.9 s Normal 9.0-12.9 [facility] Comment on above: Performed By: #### C MP, CBC #### [place] [address] [place] #### VITD+D2+D3 #### [facility] , RBC Auto (Bld) [#/Vol]Ordere d By: Mariya Kumari on 12-30-2022 RBC (Bld) [#/Vol] 4.60 10*6/uL 3.60-5.00 [facility] Serum or plasma anion gap de terminationOrdered By: Mariya Kumari on 12-30-2022 Anion gap [Moles/Vol] 11.7 mmol/L 6.0-15.0 [facility] Sodium [Moles/volume] in Ser um or PlasmaOrdered By: Mariya Kumari on 12-30-2022 Sodium [Moles/Vol] 140 mmol/L 136-145 [facility] Troponin I High Sensitivityo n 12-30-2022 Troponin I High Sensitivity 2.4 pg/mL Normal 0.0-15.0 [facility] Comment on above: Result Comment: PERF ORMED BY: [place] [address] PATHOLOGIST FL[employer] CARRIER WENDY CLARK M.D. Performed By: #### C MP, CBC #### [place] [id number] [facility] #### VITD+D2+D3 #### [facility] , Troponin I.cardiac [Mass/vol ume] in Serum or Plasma by Detection limit <= 0.01 ng/Ordered By: Mariya Kumari on 12-30-2022 Troponin I.cardiac DL <= 0.01 ng/mL [Mass/Vol] 2.4 pg/mL 0.0-15.0 [facility] Urea nitrogen [Mass/volume] in Serum or PlasmaOrdered By: Mariya Kumari on 12-30-2022 Urea nitrogen [Mass/Vol] 7 mg/dL 7-25 [facility] WBC Auto (Bld) [#/Vol]Ordere d By: Mariya Kumari on 12-30-2022 WBC (Bld) [#/Vol] 9.6 10*3/uL 3.8-11.6 [facility] XR chest 2V*on 12-30-2022 XR chest 2V* [facility] [address] [place] [id number] XRay Report Signed Patient: Lupe Pickard MR#: [id number] : 1975 Acct:[id number] Age/Sex: 47 / F ADM Date: 12/30/22 Loc: ER Room: Type: [facility] ER Attending Dr: Copies to: Mariya Kumari [...] Ernie Roper M.D.12/30/2022 6:06 PM Dictation Location: [place] [address] Transcribed By: BOB 12/30/221805 Dictated By: Ernie Roper II, MD 12/30/221804 Signed By: 12/30/221805 Normal [facility] MM screening mammo BI w/CADo n 12-29-2022 MM screening mammo BI w/CAD [facility] [place] [address] Mammography Report Signed Patient: Lupe Pickard MR#: [id number] : 1975 Acct:[id number] Age/Sex: 47 / F ADM Date: 12/29/22 Loc: [place] Room: Type: [facility] Attending Dr: Amanda Montiel MD Copies to: [...] Neff Jr., D.O.12/29/2022 2:57 PM Dictation Location: DW01 Transcribed By: BOB 12/29/221456 Dictated By: Bob Neff Jr, DO 12/29/221456 Signed By: 12/29/221456 Normal [facility] Consent for Treatmenton 11-28 Consent for Treatment [id number] #1.00CD:127 Normal [facility] Heart and Vascular Office/Cl inic Noteon 12-24-2022 Heart and Vascular Office/Clinic Note History of Present Illness Patient is a very pleasant 47-year-old morbidly obese nondiabetic female with a history of fibromyalgia, GERD, former smoker quit more than 30 years ago, referred to our office for palpitations. Patient was originally referred to [facility] with Dr. 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 Given the patient's family history of heart disease she wanted a second opinion. The patient went to the emergency room 3 days ago and [facility] where her blood pressure was found [...] aggressive L (more content not included)... Normal [facility] Comment on above: Result Comment: Elec tronically Signed By: Santy PELAYO, Franklyn Johnson.br\Date and Time Signed: 12/24/22 11:34 EDT Physician Orderon 12-24-2022 Physician Order [id number] 7#1.00CD:127 Normal [facility] Physician Referralon 023 Physician Referral [id number] #1.00CD:127 Normal [facility] Activated partial thrombopla stin time (aPTT) in platelet poor plasma by coagulation aOrdered By: Josué Napier on 12-20-2022 aPTT Coag (PPP) [Time] 31.8 s 25.1-36.5 [facility] Alanine aminotransferase [En zymatic activity/volume] in Serum or PlasmaOrdered By: Josué Napier on 12-20-2022 ALT [Catalytic activity/Vol] 12 U/L Normal 7-52 [facility] Comment on above: Performed By: #### C BC, HS TROP, BMP, PT, BNP, PTT #### [facility] [address] Albumin [Mass/volume] in Ser um or Plasma by Bromocresol green (BCG) dye binding methoOrdered By: Josué Napier on 12-20-2022 Albumin BCG dye [Mass/Vol] 4.4 g/dL 3.5-5.7 [facility] Alkaline phosphatase [Enzyma tic activity/volume] in Serum or PlasmaOrdered By: Josué Napier on 12-20-2022 ALP [Catalytic activity/Vol] 49 U/L Normal 34-104 [facility] Comment on above: Performed By: #### C BC, HS TROP, BMP, PT, BNP, PTT #### [address] Amphetamine Screen Ql (U)Ord ered By: Josué Napier on 12-20-2022 Amphetamines Ql (U) Negative Negative [facility] Aspartate aminotransferase [ Enzymatic activity/volume] in Serum or PlasmaOrdered By: Josué Napier on 12-20-2022 AST [Catalytic activity/Vol] 11 U/L Low 13-39 [facility] Comment on above: Performed By: #### C BC, HS TROP, BMP, PT, BNP, PTT #### [address] Automated basophil %Ordered By: Josué Napier on 12-20-2022 Basophils/100 WBC (Bld) 0.2 % Normal . [facility] Comment on above: Performed By: #### C BC, HS TROP, BMP, PT, BNP, PTT #### [address] Automated basophil countOrde red By: Josué Napier on 12-20-2022 Basophils (Bld) [#/Vol] 0.0 10*3/uL Normal 0.0-0.2 [facility] Comment on above: Result Comment: PERF ORMED BY: [place] [address] PATHOLOGIST [employer] WENDY CLARK M.D. Performed By: #### C BC, HS TROP, BMP, PT, BNP, PTT #### [address] Automated blood monocyte cou ntOrdered By: Josué Napier on 12-20-2022 Monocytes (Bld) [#/Vol] 0.4 10*3/uL Normal 0.0-0.8 [facility] Comment on above: Performed By: #### C BC, HS TROP, BMP, PT, BNP, PTT #### [address] Automated eosinophil %Ordere d By: Josué Napier on 12-20-2022 Eosinophils/100 WBC (Bld) 1.1 % Normal . [facility] Comment on above: Performed By: #### C BC, HS TROP, BMP, PT, BNP, PTT #### [facility] [address] Automated eosinophil countOr dered By: Josué Napier on 12-20-2022 Eosinophils (Bld) [#/Vol] 0.1 10*3/uL Normal 0.0-0.45 [facility] Comment on above: Performed By: #### C BC, HS TROP, BMP, PT, BNP, PTT #### [facility] [address] Automated monocyte %Ordered By: Josué Napier on 12-20-2022 Monocytes/100 WBC (Bld) 4.1 % Normal . [facility] Comment on above: Performed By: #### C BC, HS TROP, BMP, PT, BNP, PTT #### [facility] [address] Automated neutrophil %Ordere d By: Josué Napier on 12-20-2022 Neutrophils/100 WBC (Bld) 67.7 % Normal . [facility] Comment on above: Performed By: #### C BC, HS TROP, BMP, PT, BNP, PTT #### [facility] [address] [place] [address] [place] Barbiturates [Presence] in U rine by Screen methodOrdered By: Josué Napier on 12-20-2022 Barbiturates Screen Ql (U) Negative Negative [facility] Benzodiazepines Screen Ql (U )Ordered By: Josué Napier on 12-20-2022 Benzodiazepines Ql (U) Negative Negative [facility] Benzoylecgonine [Presence] i n Urine by Screen methodOrdered By: Josué Napier on 12-20-2022 Benzoylecgonine Screen Ql (U) Negative Negative [facility] Bilirubin Test strip Ql (U)O rdered By: Josué Napier on 12-20-2022 Bilirubin Ql (U) Negative Negative [facility] Bilirubin.total [Mass/volume ] in Serum or PlasmaOrdered By: Josué Napier on 12-20-2022 Bilirubin [Mass/Vol] 0.3 mg/dL Normal 0.3-1.0 [facility] Comment on above: Performed By: #### C BC, HS TROP, BMP, PT, BNP, PTT #### [facility] [address] [place] [address] [place] Calcium [Mass/volume] in Ser um or PlasmaOrdered By: Josué Napier on 12-20-2022 Calcium [Mass/Vol] 9.2 mg/dL Normal 8.6-10.3 [facility] Comment on above: Performed By: #### C BC, HS TROP, BMP, PT, BNP, PTT #### [facility] [address] Cannabinoids [Presence] in U rine by Screen methodOrdered By: Josué Napier on 12-20-2022 Cannabinoids Screen Ql (U) Negative Negative [facility] Comment on above: These are unconfirme d results and should not be used for legal purposes. Drug Cut-Off Concentration: AMPH 1000 ng/mL MEKHI 200 ng/mL NURY 200 ng/mL COCM 300 ng/mL OP 300 ng/mL PCP 25 ng/mL THC 20 ng/mL Carbon dioxide, total [Moles /volume] in Serum or PlasmaOrdered By: Josué Napier on 12-20-2022 CO2 [Moles/Vol] 28.6 mmol/L Normal 21.0-31.0 [facility] Comment on above: Performed By: #### C BC, HS TROP, BMP, PT, BNP, PTT #### [facility] [address] [place] [address] [place] Chloride [Moles/volume] in S zakia or PlasmaOrdered By: Josué Napier on 12-20-2022 Chloride [Moles/Vol] 104 mmol/L Normal 98-107 [facility] Comment on above: Performed By: #### C BC, HS TROP, BMP, PT, BNP, PTT #### [facility] [address] [place] [address] [place] Color Auto (U)Ordered By: Randolph Napier on 12-20-2022 Color (U) Yellow Yellow [facility] Complete Blood Count Auto Di ffon 12-20-2022 Mean Corpuscular HGB Conc 33.6 g/dL Normal 32.0-35.0 [facility] Comment on above: Performed By: #### C BC, HS TROP, BMP, PT, BNP, PTT #### [address] Monocytes/100 WBC (Bld) 18.26 % Normal 0.00-20.00 [facility] Comment on above: Performed By: #### C BC, HS TROP, BMP, PT, BNP, PTT #### [address] NRBC% 0.1 /100{WBC} Normal 0-0.5 [facility] Comment on above: Performed By: #### C BC, HS TROP, BMP, PT, BNP, PTT #### [address] Comprehensive Metabolic Pane soniya 12-20-2022 Albumin [Mass/Vol] 4.4 g/dL Normal 3.5-5.7 [facility] Comment on above: Performed By: #### C BC, HS TROP, BMP, PT, BNP, PTT #### [address] Creatinine Clr Calc Pharmacy 168.35 Normal [facility] Comment on above: Performed By: #### C BC, HS TROP, BMP, PT, BNP, PTT #### [address] GFR/1.73 sq M.predicted MDRD (S/P/Bld) [Vol rate/Area] mL/min/{1.73_m2} Normal [facility] Comment on above: Performed By: #### C BC, HS TROP, BMP, PT, BNP, PTT #### [address] Creatine kinase [Enzymatic a ctivity/volume] in Serum or PlasmaOrdered By: Josué Napier on 12-20-2022 CK [Catalytic activity/Vol] 46 U/L Normal 30-223 [facility] Comment on above: Performed By: #### C BC, HS TROP, BMP, PT, BNP, PTT #### [address] Creatinine [Mass/volume] in Serum or PlasmaOrdered By: Josué Napier on 12-20-2022 Creatinine [Mass/Vol] 0.57 mg/dL Low 0.60-1.20 [facility] Comment on above: Performed By: #### C BC, HS TROP, BMP, PT, BNP, PTT #### [facility] [address] [place] [address] [place] Drug Screen,Urineon 12-21-19 23 Amphetamine Screen,Urine Negative Normal Negative [facility] Comment on above: Performed By: #### H S TROP #### [address] Barbiturate Screen,Urine Negative Normal Negative [facility] Comment on above: Performed By: #### H S TROP #### [address] Benzodiazepines Screen,Urine Negative Normal Negative [facility] Comment on above: Performed By: #### H S TROP #### [address] Cannabinoid Screen,Urine Negative Normal Negative [facility] Comment on above: Result Comment: Thes e are unconfirmed results and should not be used for legal purposes. Drug Cut-Off Concentration: AMPH 1000 ng/mL MEKHI 200 ng/mL NURY 200 ng/mL COCM 300 ng/mL OP 300 ng/mL PCP 25 ng/mL THC 20 ng/mL PERFORMED BY: [place] [address] PATHOLOGIST [employer] WENDY CLARK M.D. Performed By: #### H S TROP #### [address] Cocaine Screen,Urine Negative Normal Negative [facility] Comment on above: Performed By: #### H S TROP #### [place] [address] [place] Opiate Screen,Urine Negative Normal Negative [facility] Comment on above: Performed By: #### H S TROP #### [address] Phencyclidine Screen,Urine Negative Normal Negative [facility] Comment on above: Performed By: #### H S TROP #### [address] ECG 12 lead ECGon 12-20-2022 ECG 12 lead ECG [facility] [place] [address] [place] [address] Electrocardiograph Report Signed Patient: Lupe Pickard MR#: [id number] : 1975 Acct:[id number] Age/Sex: 47 / F ADM Date: 12/20/22 Loc: ER Room: Type: [facility] ER Attending Dr: Ordering Provider: Josué Napier [...] ventricular hypertrophy Confirmed by Yogi Mcgraw DO ([id number]) on 12/20/2022 4:21:20 PM Referred By: Electronically Signed By:Yogi Mcgraw DO Transcribed By: MUS Signed By Yogi Mcgraw DO 1621 Normal [facility] Erythrocyte distribution wid th [Ratio] by Automated countOrdered By: Josué Napier on 12-20-2022 Erythrocyte distribution width (RBC) [Ratio] 14.4 % Normal 11.9-15.3 [facility] Comment on above: Performed By: #### C BC, HS TROP, BMP, PT, BNP, PTT #### [facility] [address] [place] [address] [place] Erythrocytes [#/volume] in B lood by Automated countOrdered By: Josué Napier on 12-20-2022 RBC (Bld) [#/Vol] 4.68 10*6/uL Normal 3.60-5.00 [facility] Comment on above: Performed By: #### C BC, HS TROP, BMP, PT, BNP, PTT #### [facility] [address] [place] [address] [place] Glucose [Mass/volume] in Ser um or PlasmaOrdered By: Josué Napier on 12-20-2022 Glucose [Mass/Vol] 97 mg/dL Normal 70-100 [facility] Comment on above: ADA recommended refe rence rangeRandom Glucose Reference Range is dependent on time and content of last meal. Glucose of more than 200 mg/dL in a nonstressed, ambulatory subject supports the diagnosis of Diabetes Mellitus. Result Comment: [place] om Glucose Reference Range is dependent on time and content of last meal. Glucose of more than 200 mg/dL in a nonstressed, ambulatory subject supports the diagnosis of Diabetes Mellitus. ADA recommended reference range Performed By: #### C BC, HS TROP, BMP, PT, BNP, PTT #### [facility] [address] Hematocrit [Volume Fraction] of Blood by Automated countOrdered By: Josué Napier on 12-20-2022 Hematocrit (Bld) [Volume fraction] 40.7 % Normal 34.0-46.4 [facility] Comment on above: Performed By: #### C BC, HS TROP, BMP, PT, BNP, PTT #### [facility] [address] [place] [address] [place] Hemoglobin [Mass/volume] in BloodOrdered By: Josué Napier on 12-20-2022 Hemoglobin (Bld) [Mass/Vol] 13.7 g/dL Normal 11.8-15.4 [facility] Comment on above: Performed By: #### C BC, HS TROP, BMP, PT, BNP, PTT #### [facility] [address] Ketones Auto test strip (U) [Mass/Vol]Ordered By: Josué Napier on 12-20-2022 Ketones (U) [Mass/Vol] Negative Negative [facility] Leukocytes [#/volume] correc emily for nucleated erythrocytes in Blood by Automated counOrdered By: Josué Napier on 12-20-2022 WBC corrected for nucl RBC Auto (Bld) [#/Vol] 10.0 10*3/uL 3.8-11.6 [facility] Leukocytes [#/volume] in Blo od by Automated countOrdered By: Josué Napier on 12-20-2022 WBC (Bld) [#/Vol] 10.0 10*3/uL Normal 3.8-11.6 [facility] Comment on above: Performed By: #### C BC, HS TROP, BMP, PT, BNP, PTT #### [facility] [address] [place] [address] [place] Lymphocytes [#/volume] in Bl ood by Automated countOrdered By: Josué Napier on 12-20-2022 Lymphocytes (Bld) [#/Vol] 2.7 10*3/uL Normal 1.00-4.8 [facility] Comment on above: Performed By: #### C BC, HS TROP, BMP, PT, BNP, PTT #### [facility] [address] [place] [address] [place] Lymphocytes/100 leukocytes i n Blood by Automated countOrdered By: Josué Napier on 12-20-2022 Lymphocytes/100 WBC (Bld) 26.9 % Normal . [facility] Comment on above: Performed By: #### C BC, HS TROP, BMP, PT, BNP, PTT #### [facility] [address] [place] [address] [place] MCH [Entitic mass] by Automa emily countOrdered By: Josué Napier on 12-20-2022 MCH (RBC) [Entitic mass] 29.2 pg Normal 24.7-34.3 [facility] Comment on above: Performed By: #### C BC, HS TROP, BMP, PT, BNP, PTT #### [facility] [address] [place] [address] [place] MCHC Auto (RBC) [Mass/Vol]Or dered By: Josué Napier on 12-20-2022 MCHC (RBC) [Mass/Vol] 33.6 g/dL 32.0-35.0 [facility] MCV [Entitic volume] by Auto mated countOrdered By: Josué Napier on 12-20-2022 MCV (RBC) [Entitic vol] 86.9 fL Normal 80-100 [facility] Comment on above: Performed By: #### C BC, HS TROP, BMP, PT, BNP, PTT #### [facility] [address] Magnesium [Mass/volume] in S zakia or PlasmaOrdered By: Josué Napier on 12-20-2022 Magnesium [Mass/Vol] 1.8 mg/dL Low 1.9-2.7 [facility] Comment on above: Performed By: #### C BC, HS TROP, BMP, PT, BNP, PTT #### [facility] [address] Monocyte distribution width [Entitic volume] in Blood by AutomatedOrdered By: Josué Napier on 12-20-2022 Monocyte distribution width Auto (Bld) [Entitic vol] 18.26 % 0.00-20.00 [facility] Neutrophils [#/volume] in Bl ood by Automated countOrdered By: Josué Napier on 12-20-2022 Neutrophils (Bld) [#/Vol] 6.8 10*3/uL Normal 1.8-7.7 [facility] Comment on above: Performed By: #### C BC, HS TROP, BMP, PT, BNP, PTT #### [facility] [address] [place] [address] Nitrite Test strip Ql (U)Ord ered By: Josué Napier on 12-20-2022 Nitrite Ql (U) Negative Negative [facility] No Panel InformationOrdered By: Josué Napier on 12-20-2022 Estimated GFR (CKD-EPI) > 60.0 mL/Min [facility] Creatinine Clearance (Chem 168.35 [facility] Nucleated erythrocytes [Pres ence] in Blood by Automated countOrdered By: Josué Napier on 12-20-2022 Nucleated RBC Auto Ql (Bld) 0.1 /100{WBC} 0-0.5 [facility] Opiates [Presence] in Urine by Screen methodOrdered By: Josué Napier on 12-20-2022 Opiates Screen Ql (U) Negative Negative [facility] Partial Thromboplastin Timeo n 12-20-2022 aPTT Coag (Bld) [Time] 31.8 s Normal 25.1-36.5 [facility] Comment on above: Result Comment: PERF ORMED BY: [place] [address] PATHOLOGIST [employer] WENDY CLARK M.D. Performed By: #### C BC, HS TROP, BMP, PT, BNP, PTT #### [facility] [address] Phencyclidine Screen Ql (U)O rdered By: Josué Napier on 12-20-2022 Phencyclidine Ql (U) Negative Negative [facility] Platelet mean volume [Entiti c volume] in Blood by Automated countOrdered By: Josué Napier on 12-20-2022 Platelet mean volume (Bld) [Entitic vol] 8.3 fL Normal 6.3-10.7 [facility] Comment on above: Performed By: #### C BC, HS TROP, BMP, PT, BNP, PTT #### [facility] [address] Platelet poor plasma interna tional normalized ratio (INR) by coagulation assay (relatOrdered By: Josué Napier on 12-20-2022 INR Coag (PPP) [Relative time] 1.0 {INR} Normal [facility] Comment on above: INR Therapeutic Rang [...] - 4.5 Performed By: #### C BC, HS TROP, BMP, PT, BNP, PTT #### [address] Platelets [#/volume] in Bloo d by Automated countOrdered By: Josué Napier on 12-20-2022 Platelets (Bld) [#/Vol] 349 10*3/uL Normal 150-450 [facility] Comment on above: Performed By: #### C BC, HS TROP, BMP, PT, BNP, PTT #### [address] Potassium [Moles/volume] in Serum or PlasmaOrdered By: Josué Napier on 12-20-2022 Potassium [Moles/Vol] 3.9 mmol/L Normal 3.5-5.1 [facility] Comment on above: Performed By: #### C BC, HS TROP, BMP, PT, BNP, PTT #### [address] Protein Auto test strip (U) [Mass/Vol]Ordered By: Josué Napier on 12-20-2022 Protein (U) [Mass/Vol] Negative Negative [facility] Protein [Mass/volume] in Ser um or PlasmaOrdered By: Josué Napier on 12-20-2022 Protein [Mass/Vol] 7.5 g/dL Normal 6.4-8.9 [facility] Comment on above: Performed By: #### C BC, HS TROP, BMP, PT, BNP, PTT #### [address] Prothrombin Time INROrdered By: Josué Napier on 12-20-2022 PT Coag (PPP) [Time] 11.8 s Normal 9.0-12.9 [facility] Comment on above: Performed By: #### C BC, HS TROP, BMP, PT, BNP, PTT #### [address] Serum globulin measurement b y calculation (mass/volume)Ordered By: Josué Napier on 12-20-2022 Globulin (S) [Mass/Vol] 3.1 g/dL Normal [facility] Comment on above: Performed By: #### C BC, HS TROP, BMP, PT, BNP, PTT #### [facility] [address] [place] [address] Serum or plasma albumin/glob ulin mass ratioOrdered By: Josué Napier on 12-20-2022 Albumin/Globulin [Mass ratio] 1.4 {ratio} Normal [facility] Comment on above: Performed By: #### C BC, HS TROP, BMP, PT, BNP, PTT #### [facility] [address] [place] [address] Serum or plasma anion gap de terminationOrdered By: Josué Napier on 12-20-2022 Anion gap [Moles/Vol] 10.3 mmol/L Normal 6.0-15.0 [facility] Comment on above: Performed By: #### C BC, HS TROP, BMP, PT, BNP, PTT #### [facility] [address] [place] [address] Sodium [Moles/volume] in Ser um or PlasmaOrdered By: Josué Napier on 12-20-2022 Sodium [Moles/Vol] 139 mmol/L Normal 136-145 [facility] Comment on above: Performed By: #### C BC, HS TROP, BMP, PT, BNP, PTT #### [facility] [address] [place] [address] Specific gravity Auto test s trip (U) [Rel density]Ordered By: Josué Napier on 12-20-2022 Specific gravity (U) [Rel density] 1.005 1.001-1.030 [facility] Thyrotropin [Units/volume] i n Serum or PlasmaOrdered By: Josué Napier on 12-20-2022 TSH Qn 0.23 m[IU]/L Low 0.45-5.33 [facility] Comment on above: Result Comment: PERF ORMED BY: [place] [address] PATHOLOGIST [employer] WENDY CLARK M.D. Performed By: #### C BC, HS TROP, BMP, PT, BNP, PTT #### [address] Thyroxine (T4) [Mass/volume] in Serum or PlasmaOrdered By: Josué Napier on 12-20-2022 T4 [Mass/Vol] 9.01 ug/dL Normal 5.39-11.82 [facility] Comment on above: Performed By: #### C BC, HS TROP, BMP, PT, BNP, PTT #### [address] Troponin I High Sensitivityo n 12-20-2022 Troponin I High Sensitivity < 2.3 Normal 0.0-15.0 [facility] Comment on above: Result Comment: PERF ORMED BY: [place] [address] PATHOLOGIST [employer] WENDY CLARK M.D. Performed By: #### C BC, HS TROP, BMP, PT, BNP, PTT #### [address] Troponin I.cardiac [Mass/vol ume] in Serum or Plasma by Detection limit <= 0.01 ng/Ordered By: Josué Napier on 12-20-2022 Troponin I.cardiac DL <= 0.01 ng/mL [Mass/Vol] < 2.3 pg/mL 0.0-15.0 [facility] Urea nitrogen [Mass/volume] in Serum or PlasmaOrdered By: Josué Napier on 12-20-2022 Urea nitrogen [Mass/Vol] 9 mg/dL Normal 7-25 [facility] Comment on above: Performed By: #### C BC, HS TROP, BMP, PT, BNP, PTT #### [address] Urinalysison 12-20-2022 Appearance (U) Clear Normal Clear [facility] Comment on above: Order Comment: Name Collection Type:: Clean-Voided Midstream Performed By: #### H S TROP #### [address] Bilirubin,Urine Negative Normal Negative [facility] Comment on above: Order Comment: Name Collection Type:: Clean-Voided Midstream Performed By: #### H S TROP #### [place] [address] [place] Color (U) Yellow Normal Yellow [facility] Comment on above: Order Comment: Name Collection Type:: Clean-Voided Midstream Performed By: #### H S TROP #### [address] Glucose Ql (U) Normal Normal Normal [facility] Comment on above: Order Comment: Name Collection Type:: Clean-Voided Midstream Performed By: #### H S TROP #### [address] Ketones Ql (U) Negative Normal Negative [facility] Comment on above: Order Comment: Name Collection Type:: Clean-Voided Midstream Performed By: #### H S TROP #### [address] Leukocyte esterase Test strip Ql (U) Negative Normal Negative [facility] Comment on above: Order Comment: Name Collection Type:: Clean-Voided Midstream Performed By: #### H S TROP #### [place] [address] [place] Nitrite,Urine Negative Normal Negative [facility] Comment on above: Order Comment: Name Collection Type:: Clean-Voided Midstream Performed By: #### H S TROP #### [place] [address] [place] Occult Blood,Urine Negative Normal Negative [facility] Comment on above: Order Comment: Name Collection Type:: Clean-Voided Midstream Result Comment: PERF ORMED BY: [place] [address] PATHOLOGIST [employer] WENDY CLARK M.D. Performed By: #### H S TROP #### [place] [address] [place] pH (U) 6.5 [pH] Normal 5.0-9.0 [facility] Comment on above: Order Comment: Name Collection Type:: Clean-Voided Midstream Performed By: #### H S TROP #### [facility] [address] [place] [id number] [place] Protein,Urine Negative Normal Negative [facility] Comment on above: Order Comment: Name Collection Type:: Clean-Voided Midstream Performed By: #### H S TROP #### [facility] [address] Specificy [place],Urine 1.005 Normal 1.001-1.030 [facility] Comment on above: Order Comment: Name Collection Type:: Clean-Voided Midstream Performed By: #### H S TROP #### [facility] [address] [place] [id number] [place] Urobilinogen,Urine Normal Normal Normal [facility] Comment on above: Order Comment: Name Collection Type:: Clean-Voided Midstream Performed By: #### H S TROP #### [facility] [address] [place] [id number] [facility] Urine clarity by refractomet ry automatedOrdered By: Josué Napier on 12-20-2022 Clarity Refractometry automated (U) Clear Clear [facility] Urine glucose measurement by automated test strip (mass/volume)Ordered By: Josué Napier on 12-20-2022 Glucose Auto test strip (U) [Mass/Vol] Normal mg/dL Normal [facility] Urine hemoglobin detection b y automated test stripOrdered By: Josué Napier on 12-20-2022 Hemoglobin Auto test strip Ql (U) Negative Negative [facility] Urine leukocyte esterase det ection by automated test stripOrdered By: Josué Napier on 12-20-2022 Leukocyte esterase Auto test strip Ql (U) Negative Negative [facility] Urobilinogen Auto test strip (U) [Mass/Vol]Ordered By: Josué Napier on 12-20-2022 Urobilinogen (U) [Mass/Vol] Normal mg/dL Normal [facility] XR chest 2V*on 12-20-2022 XR chest 2V* [facility] [place] [address] [place] [id number] XRay Report Signed Patient: Lupe Pickard MR#: [id number] : 1975 Acct:[id number] Age/Sex: 47 / F ADM Date: 12/20/22 [...] Rao Gresham M.D.12/20/2022 1:24 PM Dictation Location: [place] [address] Transcribed By: [facility] 12/20/22 1324 Dictated By: Rao Gresham DO 12/20/22 1323 Signed By: 12/20/22 1324 Normal [facility] pH Auto test strip (U)Ordere d By: Josué Napier on 12-20-2022 pH (U) 6.5 [pH] 5.0-9.0 [facility] Office Visit (Cardiology)on 12-08-2022 Follow-up visit Diagnoses/Problems [...] Metabolic Panel; Status:Active - Retrospective Authorization; Requested for:[id number]; TSH - Thyroid Stimulating Hormone, Serum; Status:Active - Retrospective Authorization; Requested for:[id number]; Vitamin D 25-Hydroxy; Status:Need Information - ABN Disposition,Retrospe ctive Authorization; Requested for:[id number]; Morbid obesity with BMI of 40.0-44.9, adult Healthy Weight Tips; Status:Complete - Retrospective Authorization; Done: [id number] Some eating tips that can help you lose weight.; Status:Complete - Retrospective Authorization; Done: [id number] Palpitations Renew: Metoprolol Succinate ER 50 MG Oral Tablet Extended Release 24 Hour; TAKE 1 TABLET BY MOUTH EVERY DAY PVC (premature ventricular contraction) IO EKG Electrocardiogram- 12 Lead; Status:Complete; Done: [id number] SocHx: Former smoker Tobacco Use Screening; Status:Complete; Done: [id number] Patient Instructions Please bring all medicines, vitamins, [...] have nerve ablations in back with the [place] [facility]. The provider reviewed the following [...] TWICE A DAY Vitamin D3 1.25 MG (42565 UT) Oral CapsuleTAKE 1 CAPSULE Daily Allergies Medication No Known Drug Allergies Recorded By: Suzie Turner; 10/21/2017 2:10:00 PM Social History Problems Daily caf (more content not included)... Normal Immunovaccine Tobacco Screening.on 023 Tobacco use status CPHS b) No [facility] Work Phone: Echocardiogramon 11-25-2022 Echocardiography [facility] [address] [place] [address], [address] [address] TRANSTHORACIC ECHOCARDIOGRAM REPORT Patient Name: LUPE PICKARD Reading Physician: [id number] Azam Mortensen MD Study Date: 11/25/2022 Referring Physician: PHILLIP BENJAMIN MRN/PID: [id number] PCP: Donya Billings MD Accession/Order#: [id number] Department Location: [facility] Date of : 1975 Fellow: Gender: F Nurse: Admit Date: Register Repairer: Shila Tripp RDCS, RVT Height: 170.18 cm CC Report to: Weight: 121.56 kg Study Type: Echocardiogram BSA: 2.29 m2 Blood Pressure: 120 /82 mmHg Diagnosis/ICD: I47.1-Supraventricul ar tachycardia; I49.3-Ventricular premature depolarization; R00.2-Palpitations Indication: Chest Pain, Former Smoker, Morbid Obesity, Hypothyroid, Anxiety, Shortness of Breath, Marijuana Use Procedure/CPT: Echo Complete w Full [id number] Study Detail: The following Echo studies were [...] 0.8 m/s (0.6-0.9m/s) PV Max P.8 mmHg [id number] Azam Mortensen MD Electronically signed on 11/25/2022 at 5:29:01 PM Final Normal [facility] Troponin I High Sensitivityo n 11-06-2022 Troponin I High Sensitivity < 2.3 Normal 0.0-15.0 [facility] Comment on above: Result Comment: PERF ORMED BY: [place] [address] PATHOLOGIST FLASK CARRIER WENDY CLARK M.D. Performed By: #### H S TROP #### [address] Troponin I.cardiac [Mass/vol ume] in Serum or Plasma by Detection limit <= 0.01 ng/Ordered By: Yogi Mcgraw on 11-06-2022 Troponin I.cardiac DL <= 0.01 ng/mL [Mass/Vol] < 2.3 pg/mL 0.0-15.0 [facility] XR chest 1V portableon 11-06 XR chest 1V portable [facility] [place] [address] XRay Report Signed Patient: Lupe Pickard MR#: [id number] : 1975 Acct:[id number] Age/Sex: 47 / F ADM Date: 11/05/22 Loc: ER Room: Type: [facility] ER Attending Dr: Copies to: [...] Ernie Roper M.D.11/06/2022 1:10 PM Dictation Location: [place] [address] Transcribed By: [facility] 11/06/22 1310 Dictated By: Ernie Roper II, MD 11/06/22 1309 Signed By: 11/06/22 1310 Normal [facility] Activated partial thrombopla stin time (aPTT) in platelet poor plasma by coagulation aOrdered By: Yogi Mcgraw on 11-05-2022 aPTT Coag (PPP) [Time] 31.7 s 25.1-36.5 [facility] B-Type Natriuretic Peptideon 11-05-2022 Natriuretic peptide B (Bld) [Mass/Vol] 16.0 pg/mL Normal 5-100 [facility] Comment on above: Result Comment: PERF ORMED BY: [place] [address] PATHOLOGIST FLASK CARRIER WENDY LCARK M.D. Performed By: #### C OVID19 FLU RSV, CEPHEID NEG #### [address] Basic Metabolic Panelon 06-0 Anion gap [Moles/Vol] 11.1 mmol/L Normal 6.0-15.0 [facility] Comment on above: Performed By: #### C BC, HS TROP, BMP, PT, BNP, PTT #### [address] Calcium [Mass/Vol] 8.6 mg/dL Normal 8.6-10.3 [facility] Comment on above: Performed By: #### C BC, HS TROP, BMP, PT, BNP, PTT #### [address] Chloride [Moles/Vol] 105 mmol/L Normal 98-107 [facility] Comment on above: Performed By: #### C BC, HS TROP, BMP, PT, BNP, PTT #### [place] [address] CO2 [Moles/Vol] 26.4 mmol/L Normal 21.0-31.0 [facility] Comment on above: Performed By: #### C BC, HS TROP, BMP, PT, BNP, PTT #### [facility] [address] Creatinine [Mass/Vol] 0.58 mg/dL Low 0.60-1.20 [facility] Comment on above: Performed By: #### C BC, HS TROP, BMP, PT, BNP, PTT #### [facility] [address] [place] [address] [place] Creatinine Clr Calc Pharmacy 166.57 Normal [facility] Comment on above: Result Comment: PERF ORMED BY: [place] [address] PATHOLOGIST FLASK CARRIER WENDY CLARK M.D. Performed By: #### C BC, HS TROP, BMP, PT, BNP, PTT #### [place] [address] [place] GFR/1.73 sq M.predicted MDRD (S/P/Bld) [Vol rate/Area] mL/min/{1.73_m2} Normal [facility] Comment on above: Performed By: #### C BC, HS TROP, BMP, PT, BNP, PTT #### [address] Glucose [Mass/Vol] 74 mg/dL Normal 70-100 [facility] Comment on above: Result Comment: [place] Glucose Reference Range is dependent on time and content of last meal. Glucose of more than 200 mg/dL in a nonstressed, ambulatory subject supports the diagnosis of Diabetes Mellitus. ADA recommended reference range Performed By: #### C BC, HS TROP, BMP, PT, BNP, PTT #### [facility] [address] Potassium [Moles/Vol] 3.5 mmol/L Normal 3.5-5.1 [facility] Comment on above: Performed By: #### C BC, HS TROP, BMP, PT, BNP, PTT #### [facility] [address] [place] [id number] [facility] Sodium [Moles/Vol] 139 mmol/L Normal 136-145 [facility] Comment on above: Performed By: #### C BC, HS TROP, BMP, PT, BNP, PTT #### [facility] [address] [place] [id number] [facility] Urea nitrogen [Mass/Vol] 10 mg/dL Normal 7-25 [facility] Comment on above: Performed By: #### C BC, HS TROP, BMP, PT, BNP, PTT #### [facility] [address] [place] [id number] [facility] Basophils Auto (Bld) [#/Vol] Ordered By: Yogi Mcgraw on 11-05-2022 Basophils (Bld) [#/Vol] 0.1 10*3/uL 0.0-0.2 [facility] Basophils/100 WBC Auto (Bld) Ordered By: Yogi Mcgraw on 11-05-2022 Basophils/100 WBC (Bld) 0.8 % . [facility] Calcium [Mass/volume] in Ser um or PlasmaOrdered By: Yogi Mcgraw on 11-05-2022 Calcium [Mass/Vol] 8.6 mg/dL 8.6-10.3 [facility] Carbon dioxide, total [Moles /volume] in Serum or PlasmaOrdered By: Yogi Mcgraw on 11-05-2022 CO2 [Moles/Vol] 26.4 mmol/L 21.0-31.0 [facility] Chloride [Moles/volume] in S zakia or PlasmaOrdered By: Yogi Mcgraw on 11-05-2022 Chloride [Moles/Vol] 105 mmol/L 98-107 [facility] Complete Blood Count Auto Di ffon 11-05-2022 Basophils (Bld) [#/Vol] 0.1 10*3/uL Normal 0.0-0.2 [facility] Comment on above: Result Comment: PERF ORMED BY: [address] [place] [id number] PATHOLOGIST FLASK CARRIER WENDY CLARK M.D. Performed By: #### C BC, HS TROP, BMP, PT, BNP, PTT #### [address] Basophils/100 WBC (Bld) 0.8 % Normal . [facility] Comment on above: Performed By: #### C BC, HS TROP, BMP, PT, BNP, PTT #### [address] Eosinophils (Bld) [#/Vol] 0.1 10*3/uL Normal 0.0-0.45 [facility] Comment on above: Performed By: #### C BC, HS TROP, BMP, PT, BNP, PTT #### [address] Eosinophils/100 WBC (Bld) 0.9 % Normal . [facility] Comment on above: Performed By: #### C BC, HS TROP, BMP, PT, BNP, PTT #### [address] Erythrocyte distribution width (RBC) [Ratio] 14.2 % Normal 11.9-15.3 [facility] Comment on above: Performed By: #### C BC, HS TROP, BMP, PT, BNP, PTT #### [address] Hematocrit (Bld) [Volume fraction] 39.8 % Normal 34.0-46.4 [facility] Comment on above: Performed By: #### C BC, HS TROP, BMP, PT, BNP, PTT #### [address] Hemoglobin (Bld) [Mass/Vol] 13.8 g/dL Normal 11.8-15.4 [facility] Comment on above: Performed By: #### C BC, HS TROP, BMP, PT, BNP, PTT #### [address] Lymphocytes (Bld) [#/Vol] 2.4 10*3/uL Normal 1.00-4.8 [facility] Comment on above: Performed By: #### C BC, HS TROP, BMP, PT, BNP, PTT #### [address] Lymphocytes/100 WBC (Bld) 20.0 % Normal . [facility] Comment on above: Performed By: #### C BC, HS TROP, BMP, PT, BNP, PTT #### [address] MCH (RBC) [Entitic mass] 30.3 pg Normal 24.7-34.3 [facility] Comment on above: Performed By: #### C BC, HS TROP, BMP, PT, BNP, PTT #### [address] MCV (RBC) [Entitic vol] 87.5 fL Normal 80-100 [facility] Comment on above: Performed By: #### C BC, HS TROP, BMP, PT, BNP, PTT #### [address] Mean Corpuscular HGB Conc 34.7 g/dL Normal 32.0-35.0 [facility] Comment on above: Performed By: #### C BC, HS TROP, BMP, PT, BNP, PTT #### [address] Monocytes (Bld) [#/Vol] 0.7 10*3/uL Normal 0.0-0.8 [facility] Comment on above: Performed By: #### C BC, HS TROP, BMP, PT, BNP, PTT #### [address] Monocytes/100 WBC (Bld) 17.86 % Normal 0.00-20.00 [facility] Comment on above: Performed By: #### C BC, HS TROP, BMP, PT, BNP, PTT #### [address] Monocytes/100 WBC (Bld) 5.8 % Normal . [facility] Comment on above: Performed By: #### C BC, HS TROP, BMP, PT, BNP, PTT #### [address] Neutrophils (Bld) [#/Vol] 8.6 10*3/uL High 1.8-7.7 [facility] Comment on above: Performed By: #### C BC, HS TROP, BMP, PT, BNP, PTT #### [address] Neutrophils/100 WBC (Bld) 72.5 % Normal . [facility] Comment on above: Performed By: #### C BC, HS TROP, BMP, PT, BNP, PTT #### [address] NRBC% 0.1 /100{WBC} Normal 0-0.5 [facility] Comment on above: Performed By: #### C BC, HS TROP, BMP, PT, BNP, PTT #### [address] Platelet mean volume (Bld) [Entitic vol] 8.1 fL Normal 6.3-10.7 [facility] Comment on above: Performed By: #### C BC, HS TROP, BMP, PT, BNP, PTT #### [address] Platelets (Bld) [#/Vol] 336 10*3/uL Normal 150-450 [facility] Comment on above: Performed By: #### C BC, HS TROP, BMP, PT, BNP, PTT #### [address] RBC (Bld) [#/Vol] 4.55 10*6/uL Normal 3.60-5.00 [facility] Comment on above: Performed By: #### C BC, HS TROP, BMP, PT, BNP, PTT #### [address] WBC (Bld) [#/Vol] 11.9 10*3/uL High 3.8-11.6 [facility] Comment on above: Performed By: #### C BC, HS TROP, BMP, PT, BNP, PTT #### [facility] [address] [place] [id number] [facility] Creatinine [Mass/volume] in Serum or PlasmaOrdered By: Yogi Mcgraw on 11-05-2022 Creatinine [Mass/Vol] 0.58 mg/dL 0.60-1.20 [facility] ECG 12 lead ECGon 11-05-2022 ECG 12 lead ECG [facility] Main [place] [address] [place] [address] Electrocardiograph Report Signed Patient: Lupe Pickard MR#: [id number] : 1975 Acct:[id number] Age/Sex: 47 / F ADM Date: 11/05/22 Loc: ER Room: Type: [facility] ER Attending Dr: Ordering Provider: [...] normal variant Confirmed by Yogi Mcgraw DO ([id number]) on 11/06/2022 6:35:53 AM Referred By: Electronically Signed By:Yogi Mcgraw DO Transcribed By: MUS Signed By Yogi Mcgraw DO 0635 Normal [facility] Eosinophils Auto (Bld) [#/Vo l]Ordered By: Yogi Mcgraw on 11-05-2022 Eosinophils (Bld) [#/Vol] 0.1 10*3/uL 0.0-0.45 [facility] Eosinophils/100 WBC Auto (Bl d)Ordered By: Yogi Mcgraw on 11-05-2022 Eosinophils/100 WBC (Bld) 0.9 % . [facility] Erythrocyte distribution wid th Auto (RBC) [Ratio]Ordered By: Yogi Mcgraw on 11-05-2022 Erythrocyte distribution width (RBC) [Ratio] 14.2 % 11.9-15.3 [facility] Glucose [Mass/volume] in Ser um or PlasmaOrdered By: Yogi Mcgraw on 11-05-2022 Glucose [Mass/Vol] 74 mg/dL 70-100 [facility] Comment on above: ADA recommended refe rence rangeRandom Glucose Reference Range is dependent on time and content of last meal. Glucose of more than 200 mg/dL in a nonstressed, ambulatory subject supports the diagnosis of Diabetes Mellitus. Hematocrit Auto (Bld) [Volum e fraction]Ordered By: Yogi Mcgraw on 11-05-2022 Hematocrit (Bld) [Volume fraction] 39.8 % 34.0-46.4 [facility] Hemoglobin [Mass/volume] in BloodOrdered By: Yogi Mcgraw on 11-05-2022 Hemoglobin (Bld) [Mass/Vol] 13.8 g/dL 11.8-15.4 [facility] Laboratory - CoagulationOrde red By: Yogi Mcgraw on 11-05-2022 PT Coag (PPP) [Time] 12.6 s 9.0-12.9 [facility] Leukocytes [#/volume] correc emily for nucleated erythrocytes in Blood by Automated counOrdered By: Yogi Mcgraw on 11-05-2022 WBC corrected for nucl RBC Auto (Bld) [#/Vol] 11.9 10*3/uL 3.8-11.6 [facility] Lymphocytes Auto (Bld) [#/Vo l]Ordered By: Yogi Mcgraw on 11-05-2022 Lymphocytes (Bld) [#/Vol] 2.4 10*3/uL 1.00-4.8 [facility] Lymphocytes/100 WBC Auto (Bl d)Ordered By: Yogi Mcgraw on 11-05-2022 Lymphocytes/100 WBC (Bld) 20.0 % . [facility] MCH Auto (RBC) [Entitic mass ]Ordered By: Yogi Mcgraw on 11-05-2022 MCH (RBC) [Entitic mass] 30.3 pg 24.7-34.3 [facility] MCHC Auto (RBC) [Mass/Vol]Or dered By: Yogi Mcgraw on 11-05-2022 MCHC (RBC) [Mass/Vol] 34.7 g/dL 32.0-35.0 [facility] MCV Auto (RBC) [Entitic vol] Ordered By: Yogi Mcgraw on 11-05-2022 MCV (RBC) [Entitic vol] 87.5 fL 80-100 [facility] Magnesiumon 11-05-2022 Magnesium [Mass/Vol] 1.5 mg/dL Low 1.9-2.7 [facility] Comment on above: Result Comment: PERF ORMED BY: [facility] [address] [place] [address] PATHOLOGIST FLASK CARRIER WENDY CLARK M.D. Performed By: #### C BC, HS TROP, BMP, PT, BNP, PTT #### [address] Magnesium [Mass/volume] in S zakia or PlasmaOrdered By: Yogi Mcgraw on 11-05-2022 Magnesium [Mass/Vol] 1.5 mg/dL 1.9-2.7 [facility] Monocyte distribution width [Entitic volume] in Blood by AutomatedOrdered By: Yogi Mcgraw on 11-05-2022 Monocyte distribution width Auto (Bld) [Entitic vol] 17.86 % 0.00-20.00 [facility] Monocytes Auto (Bld) [#/Vol] Ordered By: Yogi Mcgraw on 11-05-2022 Monocytes (Bld) [#/Vol] 0.7 10*3/uL 0.0-0.8 [facility] Monocytes/100 WBC Auto (Bld) Ordered By: Yogi Mcgraw on 11-05-2022 Monocytes/100 WBC (Bld) 5.8 % . [facility] Natriuretic peptide B [Mass/ Vol]Ordered By: Yogi Mcgraw on 11-05-2022 Natriuretic peptide B (Bld) [Mass/Vol] 16.0 pg/mL 5-100 [facility] Neutrophils Auto (Bld) [#/Vo l]Ordered By: Yogi Mcgraw on 11-05-2022 Neutrophils (Bld) [#/Vol] 8.6 10*3/uL 1.8-7.7 [facility] Neutrophils/100 WBC Auto (Bl d)Ordered By: Yogi Mcgraw on 11-05-2022 Neutrophils/100 WBC (Bld) 72.5 % . [facility] No Panel InformationOrdered By: Yogi Mcgraw on 11-05-2022 Estimated GFR (CKD-EPI) > 60.0 mL/Min [facility] Creatinine Clearance (Chem 166.57 [facility] Nucleated erythrocytes [Pres ence] in Blood by Automated countOrdered By: Yogi Mcgraw on 11-05-2022 Nucleated RBC Auto Ql (Bld) 0.1 /100{WBC} 0-0.5 [facility] Partial Thromboplastin Timeo n 11-05-2022 aPTT Coag (Bld) [Time] 31.7 s Normal 25.1-36.5 [facility] Comment on above: Result Comment: PERF ORMED BY: [facility] [address] [facility] [place] [place] [address] PATHOLOGIST FL[employer] CARRIER WENDY CLARK M.D. Performed By: #### C BC, HS TROP, BMP, PT, BNP, PTT #### [facility] [address] Phosphate [Mass/volume] in S zakia or PlasmaOrdered By: Yogi Mcgraw on 11-05-2022 Phosphate [Mass/Vol] 3.9 mg/dL 3.7-7.2 [facility] Phosphoruson 11-05-2022 Phosphate [Mass/Vol] 3.9 mg/dL Normal 3.7-7.2 [facility] Comment on above: Performed By: #### C BC, HS TROP, BMP, PT, BNP, PTT #### [facility] [address] [place] [address] [place] Platelet mean volume Auto (B ld) [Entitic vol]Ordered By: Yogi Mcgraw on 11-05-2022 Platelet mean volume (Bld) [Entitic vol] 8.1 fL 6.3-10.7 [facility] Platelet poor plasma interna tional normalized ratio (INR) by coagulation assay (relatOrdered By: Yogi Mcgraw on 11-05-2022 INR Coag (PPP) [Relative time] 1.1 {INR} [facility] Comment on above: INR Therapeutic Rang [...] 11-05-2022 Platelets (Bld) [#/Vol] 336 10*3/uL 150-450 [facility] Potassium [Moles/volume] in Serum or PlasmaOrdered By: Yogi Mcgraw on 11-05-2022 Potassium [Moles/Vol] 3.5 mmol/L 3.5-5.1 [facility] Prothrombin Time INRon 11-05 INR Coag (PPP) [Relative time] 1.1 {INR} Normal [facility] Comment on above: Result Comment: INR Therapeutic [...] - 4.5 Performed By: #### C BC, HS TROP, BMP, PT, BNP, PTT #### [facility] [address] PT Coag (PPP) [Time] 12.6 s Normal 9.0-12.9 [facility] Comment on above: Performed By: #### C BC, HS TROP, BMP, PT, BNP, PTT #### [facility] [address] RBC Auto (Bld) [#/Vol]Ordere d By: Yogi Mcgraw on 11-05-2022 RBC (Bld) [#/Vol] 4.55 10*6/uL 3.60-5.00 [facility] Serum or plasma anion gap de terminationOrdered By: oYgi Mcgraw on 11-05-2022 Anion gap [Moles/Vol] 11.1 mmol/L 6.0-15.0 [facility] Sodium [Moles/volume] in Ser um or PlasmaOrdered By: Yogi Mcgraw on 11-05-2022 Sodium [Moles/Vol] 139 mmol/L 136-145 [facility] Troponin I High Sensitivityo n 11-05-2022 Troponin I High Sensitivity 2.9 pg/mL Normal 0.0-15.0 [facility] Comment on above: Result Comment: PERF ORMED BY: [place] [address] PATHOLOGIST FL[employer] CARRIER WENDY CLARK M.D. Performed By: #### C OVID19 FLU RSV, CEPHEID NEG #### [address] Urea nitrogen [Mass/volume] in Serum or PlasmaOrdered By: Yogi Mcgraw on 11-05-2022 Urea nitrogen [Mass/Vol] 10 mg/dL 7-25 [facility] WBC Auto (Bld) [#/Vol]Ordere d By: Yogi Mcgraw on 11-05-2022 WBC (Bld) [#/Vol] 11.9 10*3/uL 3.8-11.6 [facility] Cardiac Stress Teston 2022 Cardiac Stress Test [address], [address] [place] [address] Exercise Stress Test Patient Name: LUPE PICKARD Ordering Physician: [id number] Phillip Benjamin MD Study Date: 10/28/2022 Reading Physician: [id number] Valverde MD, [facility] MRN/PID: [id number] Supervising Physician: [id number] Valverde MD, [facility] Accession/Order#: [id number] Referring Physician: PHILLIP BENJAMIN Date of : 1975 PCP: Donya Billings MD Gender: F Fellow: Height: 170.18 cm Nurse: Randall Hinton RN Weight: 121.56 kg Register Repairer: NA BSA: 2.29 m2 Technologist: BMI: 41.98 Additional Staff: kg/m2 Age: 47 years cc report to: Patient Location: cc report to: [id number] Phillip Benjamin MD Study Type: Cardiac Stress Test Diagnosis/ICD: I47.1-Supraventricul ar tachycardia; R00.2-Palpitations; I49.3-Ventricular premature depolarization Indication: ATACH Procedure/CPT: Stress Test Interpretation-[id number] ; Stress Test Supervision-[id number] Falls Risk: Low: Patient has low risk [...] favorable. 2. Adequate level of stress achieved. [id number] Ric Valverde MD, FACC Electronically signed on 10/29/2022 at 1:49:55 PM Final Normal [facility] Cardiac Stress Test [facility] [address] [place] Work Phone: Office Visit (Cardiology)on [...] Status:Hold For - Scheduling,Retrospec tive Authorization; Requested for:[id number]; Atrial tachycardia, Palpitations, PVC (premature ventricular contraction) Echocardiogram; Status:Hold For - Scheduling,Retrospec tive Authorization; Requested for:[id number]; Morbid obesity with BMI of 40.0-44.9, adult Healthy Weight Tips; Status:Complete - Retrospective Authorization; Done: [id number] Some eating tips that can help you lose weight.; Status:Complete - Retrospective Authorization; Done: [id number] SocHx: Former smoker Tobacco Use Screening; Status:Complete; Done: [id number] Patient Instructions Please bring all medicines, vitamins, [...] DAILY. Melato (more content not included)... 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 Susan Lomeli RN Patient at risk for falls:No Falls Risk protocol implemented: No Normal [facility] Alanine aminotransferase [En zymatic activity/volume] in Serum or PlasmaOrdered By: Kenyetta Dove on 08-10-2022 ALT [Catalytic activity/Vol] 14 U/L 7-52 [facility] Albumin [Mass/volume] in Ser um or Plasma by Bromocresol green (BCG) dye binding methoOrdered By: Kenyetta Dove on 08-10-2022 Albumin BCG dye [Mass/Vol] 4.0 g/dL 3.5-5.7 [facility] Alkaline phosphatase [Enzyma tic activity/volume] in Serum or PlasmaOrdered By: Kenyetta Dove on 08-10-2022 ALP [Catalytic activity/Vol] 43 U/L 34-104 [facility] Aspartate aminotransferase [ Enzymatic activity/volume] in Serum or PlasmaOrdered By: Kenyetta Dove on 08-10-2022 AST [Catalytic activity/Vol] 10 U/L 13-39 [facility] Basophils Auto (Bld) [#/Vol] Ordered By: Kenyetta Dove on 08-10-2022 Basophils (Bld) [#/Vol] 0.0 10*3/uL 0.0-0.2 [facility] Basophils/100 WBC Auto (Bld) Ordered By: Kenyetta Dove on 08-10-2022 Basophils/100 WBC (Bld) 0.5 % . [facility] Bilirubin.total [Mass/volume ] in Serum or PlasmaOrdered By: Kenyetta Dove on 08-10-2022 Bilirubin [Mass/Vol] 0.6 mg/dL 0.3-1.0 [facility] Calcium [Mass/volume] in Ser um or PlasmaOrdered By: Kenyetta Dove on 08-10-2022 Calcium [Mass/Vol] 9.0 mg/dL 8.6-10.3 [facility] Carbon dioxide, total [Moles /volume] in Serum or PlasmaOrdered By: Kenyetta Dove on 08-10-2022 CO2 [Moles/Vol] 29.0 mmol/L 21.0-31.0 [facility] Chloride [Moles/volume] in S zakia or PlasmaOrdered By: Kenyetta Dove on 08-10-2022 Chloride [Moles/Vol] 104 mmol/L 98-107 [facility] Cholesterol [Mass/volume] in Serum or PlasmaOrdered By: Kenyetta Dove on 08-10-2022 Cholesterol [Mass/Vol] 145 mg/dL 140-200 [facility] Comment on above: Chol less than 200 m g/dl low riskChol 201-239 mg/dl borderline riskChol 240 mg/dl and greater high risk Cholesterol in LDL Calc [Mas s/Vol]Ordered By: Kenyetta Dove on 08-10-2022 Cholesterol in LDL [Mass/Vol] 64 mg/dL 0-100 [facility] Comment on above: LDL ATP III CLASSIFI CATIONLDL less than 100 mg/dL OptimalLDL 100-129 mg/dL Near or above optimalLDL 130-159 mg/dL Borderline highLDL 160-189 mg/dL HighLDL greater than 189 mg/dL Very high Cholesterol in VLDL Calc [Ma ss/Vol]Ordered By: Kenyetta Dove on 08-10-2022 Cholesterol in VLDL [Mass/Vol] 27 mg/dL [facility] Creatinine [Mass/volume] in Serum or PlasmaOrdered By: Kenyetta Dove on 08-10-2022 Creatinine [Mass/Vol] 0.52 mg/dL 0.60-1.20 [facility] Eosinophils Auto (Bld) [#/Vo l]Ordered By: Kenyetta Dove on 08-10-2022 Eosinophils (Bld) [#/Vol] 0.1 10*3/uL 0.0-0.45 [facility] Eosinophils/100 WBC Auto (Bl d)Ordered By: Kenyetta Dove on 08-10-2022 Eosinophils/100 WBC (Bld) 1.3 % . [facility] Erythrocyte distribution wid th Auto (RBC) [Ratio]Ordered By: Kenyetta Dove on 08-10-2022 Erythrocyte distribution width (RBC) [Ratio] 14.6 % 11.9-15.3 [facility] Follitropin [Units/volume] i n Serum or PlasmaOrdered By: Kenyetta Dove on 08-10-2022 Follitropin Qn 5.9 m[IU]/mL [facility] Comment on above: FEMALE NORMALS (GERHARD ENOPAUSE) MID-FOLLICULAR PHASE: 3.9-8.8 mIU/mL MID-CYCLE PEAK: 4.5-22.5 mIU/mL MID-LUTEAL PHASE: 1.8-5.1 mIU/mLFEMALE NORMALS (POSTMENOPAUSE): 16.7-113.6 mIU/mLMALE NORMALS: 1.3-19.3 mIU/mL Globulin Calc (S) [Mass/Vol] Ordered By: Kenyetta Dove 08-10-2022 Globulin (S) [Mass/Vol] 2.3 g/dL [facility] Glucose [Mass/volume] in Ser um or PlasmaOrdered By: Kenyetta Dove on 08-10-2022 Glucose [Mass/Vol] 98 mg/dL 74-109 [facility] Comment on above: ADA recommended refe [...] from glycated hemoglobin (Bld) [Mass/Vol] 117 mg/dL [facility] Hematocrit Auto (Bld) [Volum e fraction]Ordered By: Kenyetta Dove on 08-10-2022 Hematocrit (Bld) [Volume fraction] 37.0 % 34.0-46.4 [facility] Hemoglobin A1c percentageOrd ered By: Kenyetta Dove on 08-10-2022 HbA1c (Bld) [Mass fraction] 5.7 % 4.3-5.6 [facility] Comment on above: Increased risk for d iabetes: 5.7 - 6.4diabetes: >6.4glycemic control for adults with diabetes: <7.0 Hemoglobin [Mass/volume] in BloodOrdered By: Kenyetta Dove on 08-10-2022 Hemoglobin (Bld) [Mass/Vol] 12.5 g/dL 11.8-15.4 [facility] Laboratory - Chemistry and C hemistry - challengeOrdered By: Kenyetta Dove on 08-10-2022 GFR/1.73 sq M.predicted MDRD (S/P/Bld) [Vol rate/Area] mL/min/{1.73_m2} [facility] Leukocytes [#/volume] correc emily for nucleated erythrocytes in Blood by Automated counOrdered By: Kenyetta Dove on 08-10-2022 WBC corrected for nucl RBC Auto (Bld) [#/Vol] 8.3 10*3/uL 3.8-11.6 [facility] Lymphocytes Auto (Bld) [#/Vo l]Ordered By: Kenyetta Dove on 08-10-2022 Lymphocytes (Bld) [#/Vol] 2.3 10*3/uL 1.00-4.8 [facility] Lymphocytes/100 WBC Auto (Bl d)Ordered By: Kenyetta Dove on 08-10-2022 Lymphocytes/100 WBC (Bld) 28.1 % . [facility] MCH Auto (RBC) [Entitic mass ]Ordered By: Kenyetta Dove on 08-10-2022 MCH (RBC) [Entitic mass] 29.7 pg 24.7-34.3 [facility] MCHC Auto (RBC) [Mass/Vol]Or dered By: eKnyetta Dove on 08-10-2022 MCHC (RBC) [Mass/Vol] 33.7 g/dL 32.0-35.0 [facility] MCV Auto (RBC) [Entitic vol] Ordered By: Kenyetta Dove on 08-10-2022 MCV (RBC) [Entitic vol] 88.0 fL 80-100 [facility] Microalbumin [Mass/volume] i n UrineOrdered By: Kenyetta Dove on 08-10-2022 Albumin DL <= 20 mg/L (U) [Mass/Vol] mg/dL 0.0-1.8 [facility] Monocytes Auto (Bld) [#/Vol] Ordered By: Kenyetta Dove on 08-10-2022 Monocytes (Bld) [#/Vol] 0.3 10*3/uL 0.0-0.8 [facility] Monocytes/100 WBC Auto (Bld) Ordered By: Kenyetta Dove on 08-10-2022 Monocytes/100 WBC (Bld) 3.9 % . [facility] Neutrophils Auto (Bld) [#/Vo l]Ordered By: Kenyetta Dove on 08-10-2022 Neutrophils (Bld) [#/Vol] 5.5 10*3/uL 1.8-7.7 [facility] Neutrophils/100 WBC Auto (Bl d)Ordered By: Kenyetta Dove on 08-10-2022 Neutrophils/100 WBC (Bld) 66.2 % . [facility] No Panel InformationOrdered By: Kenyetta Dove on 08-10-2022 Pharmacy Creatinine Clearance (Chem N/A [facility] Nucleated erythrocytes [Pres ence] in Blood by Automated countOrdered By: Kenyetta Dove on 08-10-2022 Nucleated RBC Auto Ql (Bld) 0.1 /100{WBC} 0-0.5 [facility] Platelet mean volume Auto (B ld) [Entitic vol]Ordered By: Kenyetta Dove on 08-10-2022 Platelet mean volume (Bld) [Entitic vol] 8.2 fL 6.3-10.7 [facility] Platelets Auto (Bld) [#/Vol] Ordered By: Kenyetta Dove on 08-10-2022 Platelets (Bld) [#/Vol] 313 10*3/uL 150-450 [facility] Potassium [Moles/volume] in Serum or PlasmaOrdered By: Kenyetta Dove on 08-10-2022 Potassium [Moles/Vol] 4.1 mmol/L 3.5-5.1 [facility] Protein [Mass/volume] in Ser um or PlasmaOrdered By: Kenyetta Dove on 08-10-2022 Protein [Mass/Vol] 6.3 g/dL 6.4-8.9 [facility] RBC Auto (Bld) [#/Vol]Ordere d By: Kenyetta Dove on 08-10-2022 RBC (Bld) [#/Vol] 4.20 10*6/uL 3.60-5.00 [facility] Serum or plasma albumin/glob ulin mass ratioOrdered By: Kenyetta Dove on 08-10-2022 Albumin/Globulin [Mass ratio] 1.7 {ratio} [facility] Serum or plasma anion gap de terminationOrdered By: Kenyetta Dove on 08-10-2022 Anion gap [Moles/Vol] 10.1 mmol/L 6.0-15.0 [facility] Serum or plasma high density lipoprotein (HDL) cholesterol measurementOrdered By: Kenyetta Dove on 08-10-2022 Cholesterol in HDL [Mass/Vol] 53 mg/dL 35-85 [facility] Comment on above: HDL CHOL ATP-III CLA SSIFICATION Cardiovascular RiskHDL > or equal to 60 mg/dL LOWHDL < 40 mg/dL HIGH Serum or plasma lutropin lisa surement (units/volume)Ordered By: Kenyetta Dove on 08-10-2022 Lutropin Qn 14.0 m[IU]/mL . [facility] Comment on above: Adult Female: Follic ular phase 2.4 - 12.6 Ovulation phase 14.0 - 95.6 Luteal phase 1.0 - 11.4 Postmenopausal 7.7 - 58.5 Serum or plasma progesterone measurement (mass/volume)Ordered By: Kenyetta Dove on 08-10-2022 Progesterone [Mass/Vol] 0.2 ng/mL . [facility] Comment on above: Follicular phase 0.1 - 0.9 Luteal phase 1.8 - 23.9 Ovulation phase 0.1 - 12.0 First trimester 11.0 - 44.3 Second trimester 25.4 - 83.3 Third trimester 58.7 - 214.0 Postmenopausal 0.0 - 0.1Performed at: [facility] [id number] Director: Ramirez Ca PhD, Phone: [phone] Serum or plasma total choles terol/high density lipoprotein (HDL) cholesterol mass ratOrdered By: Kenyetta Dove on 08-10-2022 Cholesterol.total/Ch olesterol in HDL [Mass ratio] 2.7 {ratio} <5.0 [facility] Sodium [Moles/volume] in Ser um or PlasmaOrdered By: Kenyetta Dove on 08-10-2022 Sodium [Moles/Vol] 139 mmol/L 136-145 [facility] Thyrotropin [Units/volume] i n Serum or PlasmaOrdered By: Kenyetta Dove on 08-10-2022 TSH Qn 0.31 m[IU]/L 0.45-5.33 [facility] Thyroxine (T4) free [Mass/vo lume] in Serum or PlasmaOrdered By: Kenyetta Dove on 08-10-2022 Free T4 [Mass/Vol] 0.80 ng/dL 0.61-1.12 [facility] Total estrogen measurementOr dered By: Kenyetta Dove on 08-10-2022 Estrogen [Mass/Vol] 310 pg/mL . [facility] Comment on above: Prepubertal < 40 Fem giacomo Cycle: 1-10 Days 16 - 328 11-20 Days 34 - 501 21-30 Days 48 - 350 Post-Menopausal 40 - 244Performed at: [employer] [id number] Director: Roger Kenny MD, Phone: [phone] Triglyceride [Mass/volume] i n Serum or PlasmaOrdered By: Kenyetta Dove on 08-10-2022 Triglyceride [Mass/Vol] 139 mg/dL 0-149 [facility] Comment on above: TRIG ATP III CLASSIF ICATIONTRIG less than 150 mg/dL NormalTRIG 150-199 mg/dL Borderline highTRIG 200-500 mg/dL High TRIG greater than 500 mg/dL Very highStandard traceable to the Center for Disease Conrtrol and Prevention (CDC) test method. Triiodothyronine (T3) Free [ Mass/volume] in Serum or PlasmaOrdered By: Kenyetta Dove on 08-10-2022 Free T3 [Mass/Vol] 3.85 pg/mL 2.50-3.90 [facility] Urea nitrogen [Mass/volume] in Serum or PlasmaOrdered By: Kenyetta Dove on 08-10-2022 Urea nitrogen [Mass/Vol] 8 mg/dL 7-25 [facility] Vitamin D+Metabolites [Mass/ volume] in Serum or PlasmaOrdered By: Kenyetta Dove on 08-10-2022 Vitamin D+Metabolites [Mass/Vol] 36.0 ng/mL 30-100 [facility] Comment on above: VITAMIN D STATUS 25( OH)VITAMIN D RANGE (ng/mL) Deficient <20 Insufficient 20 to <30Sufficient 30 to 100Reference: Kirby MF,Adonay NC, Shantelle HOLLOWAY, et al. Evaluation,treatment, and prevention of vitamin D deficiency; an Endocrine Society clinical practice guideline. JCEM. 2010; 96(7):1911-30. WBC Auto (Bld) [#/Vol]Ordere d By: Kenyetta Dove on 08-10-2022 WBC (Bld) [#/Vol] 8.3 10*3/uL 3.8-11.6 [facility] Office Visit (Cardiology)on 07-28-2022 Follow-up visit Diagnoses/Problems [...] visit. 4 months with EKG [facility] LUPE PICKARD is being seen [...] TWICE A DAY Vitamin D3 1.25 MG (30837 UT) Oral CapsuleTAKE 1 CAPSULE Daily Allergies [...] rashes. Neurological: (more content not included)... Normal Immunovaccine Tobacco Screening.on 023 Fall risk assessment c) Not medically indicated [facility] [employer] 250 DO Work Phone: Tobacco use status [facility] b) No [facility] [employer] 250 DO Work Phone: Tobacco Screening. Yes [facility] [employer] [facility] [employer] DO Work Phone: No Panel Informationon 07-16 [facility] [employer] 250 DO Work Phone: Basophils Auto (Bld) [#/Vol] Ordered By: Steve Coronel on 06-21-2022 Basophils (Bld) [#/Vol] 0.1 10*3/uL 0.0-0.2 [facility] Basophils/100 WBC Auto (Bld) Ordered By: Steve Coronel on 06-21-2022 Basophils/100 WBC (Bld) 0.6 % . [facility] Bilirubin Test strip Ql (U)O rdered By: Steve Coronel on 06-21-2022 Bilirubin Ql (U) Negative Negative [facility] Body fluid albumin measureme nt (mass/volume)Ordered By: Steve Coronel on 06-21-2022 Albumin (Body fld) [Mass/Vol] 3.7 g/dL 3.2-5.5 [facility] Color Auto (U)Ordered By: Eduardo Coronel on 06-21-2022 Color (U) Yellow Yellow [facility] Creatinine and Glomerular fi ltration rate.predicted panel (S/P/Bld)Ordered By: Steve Coronel on 06-21-2022 Creatinine [Mass/Vol] 0.51 mg/dL 0.44-1.03 [facility] Eosinophils Auto (Bld) [#/Vo l]Ordered By: Steve Coronel on 06-21-2022 Eosinophils (Bld) [#/Vol] 0.1 10*3/uL 0.0-0.45 [facility] Eosinophils/100 WBC Auto (Bl d)Ordered By: Steve Coronel on 06-21-2022 Eosinophils/100 WBC (Bld) 1.2 % . [facility] Erythrocyte distribution wid th Auto (RBC) [Ratio]Ordered By: Steve Coronel on 06-21-2022 Erythrocyte distribution width (RBC) [Ratio] 15.0 % 11.9-15.3 [facility] Estimated glomerular filtrat ion rate (GFR) non- AmericanOrdered By: Steve Coronel on 06-21-2022 GFR/1.73 sq M.predicted among non-blacks MDRD (S/P/Bld) [Vol rate/Area] > 60 mL/Min [facility] Globulin Calc (S) [Mass/Vol] Ordered By: Steve Coronel on 06-21-2022 Globulin (S) [Mass/Vol] 3.1 g/dL [facility] Hematocrit Auto (Bld) [Volum e fraction]Ordered By: Steve Coronel on 06-21-2022 Hematocrit (Bld) [Volume fraction] 40.1 % 34.0-46.4 [facility] Hemoglobin [Mass/volume] in BloodOrdered By: Steve Coronel on 06-21-2022 Hemoglobin (Bld) [Mass/Vol] 13.2 g/dL 11.8-15.4 [facility] Ketones Auto test strip (U) [Mass/Vol]Ordered By: Steve Coronel on 06-21-2022 Ketones (U) [Mass/Vol] Negative Negative [facility] Laboratory - Chemistry and C hemistry - challengeOrdered By: Steve Coronel on 06-21-2022 Lipase [Catalytic activity/Vol] 28.0 U/L 22-51 [facility] Natriuretic peptide B (Bld) [Mass/Vol] 35.0 pg/mL 5-100 [facility] Leukocytes [#/volume] correc emily for nucleated erythrocytes in Blood by Automated counOrdered By: Steve Coronel on 06-21-2022 WBC corrected for nucl RBC Auto (Bld) [#/Vol] 9.5 10*3/uL 3.8-11.6 [facility] Lymphocytes Auto (Bld) [#/Vo l]Ordered By: Steve Coronel on 06-21-2022 Lymphocytes (Bld) [#/Vol] 2.8 10*3/uL 1.00-4.8 [facility] Lymphocytes/100 WBC Auto (Bl d)Ordered By: Steve Coronel on 06-21-2022 Lymphocytes/100 WBC (Bld) 29.5 % . [facility] MCH Auto (RBC) [Entitic mass ]Ordered By: Steve Coronel on 06-21-2022 MCH (RBC) [Entitic mass] 28.7 pg 24.7-34.3 [facility] MCHC Auto (RBC) [Mass/Vol]Or dered By: Steve Coronel on 06-21-2022 MCHC (RBC) [Mass/Vol] 33.0 g/dL 32.0-35.0 [facility] MCV Auto (RBC) [Entitic vol] Ordered By: Steve Coronel on 06-21-2022 MCV (RBC) [Entitic vol] 86.9 fL 80-100 [facility] Monocyte distribution width [Entitic volume] in Blood by AutomatedOrdered By: Steve Coronel on 06-21-2022 Monocyte distribution width Auto (Bld) [Entitic vol] 18.39 % 0.00-20.00 [facility] Monocytes Auto (Bld) [#/Vol] Ordered By: Steve Coronel on 06-21-2022 Monocytes (Bld) [#/Vol] 0.4 10*3/uL 0.0-0.8 [facility] Monocytes/100 WBC Auto (Bld) Ordered By: Steve Coronel on 06-21-2022 Monocytes/100 WBC (Bld) 3.8 % . [facility] Neutrophils Auto (Bld) [#/Vo l]Ordered By: Steve Coronel on 06-21-2022 Neutrophils (Bld) [#/Vol] 6.2 10*3/uL 1.8-7.7 [facility] Neutrophils/100 WBC Auto (Bl d)Ordered By: Steve Coronel on 06-21-2022 Neutrophils/100 WBC (Bld) 64.9 % . [facility] Nitrite Test strip Ql (U)Ord ered By: Steve Coronel on 06-21-2022 Nitrite Ql (U) Negative Negative [facility] No Panel InformationOrdered By: Steve Coronel on 06-21-2022 D-Dimer Quantitative (PE/DVT) < 200 ng/mL 0-243 [facility] Comment on above: The reference range [...] conditions. Estimated GFR () > 60 mL/Min [facility] Comment on above: GFR estimated refere nce range: According to KDOQI guidelines, <60 ml/min/1.73m2 is sufficient to diagnose a patient with chronic kidney disease. Pharmacy Creatinine Clearance (Chem N/A [facility] Nucleated erythrocytes [Pres ence] in Blood by Automated countOrdered By: Steve Coronel on 06-21-2022 Nucleated RBC Auto Ql (Bld) 0.1 /100{WBC} 0-0.5 [facility] Platelet mean volume Auto (B ld) [Entitic vol]Ordered By: Steve Coronel on 06-21-2022 Platelet mean volume (Bld) [Entitic vol] 8.0 fL 6.3-10.7 [facility] Platelets Auto (Bld) [#/Vol] Ordered By: Steve Coronel on 06-21-2022 Platelets (Bld) [#/Vol] 356 10*3/uL 150-450 [facility] Protein Auto test strip (U) [Mass/Vol]Ordered By: Steve Coronel on 06-21-2022 Protein (U) [Mass/Vol] Negative Negative [facility] Protein [Mass/volume] in Ser um or PlasmaOrdered By: Steve Coronel on 06-21-2022 Protein [Mass/Vol] 6.8 g/dL 6.1-7.9 [facility] RBC Auto (Bld) [#/Vol]Ordere d By: Steve Coronel on 06-21-2022 RBC (Bld) [#/Vol] 4.61 10*6/uL 3.60-5.00 [facility] Serum or plasma alanine ott otransferase measurement without P-5'-P (enzymatic activiOrdered By: Steve Coronel on 06-21-2022 ALT No additional P-5'-P [Catalytic activity/Vol] 17 U/L 10-60 [facility] Serum or plasma albumin/glob ulin mass ratioOrdered By: Steve Coronel on 06-21-2022 Albumin/Globulin [Mass ratio] 1.2 {ratio} [facility] Serum or plasma alkaline chirag sphatase measurement (enzymatic activity/volume)Ordered By: Steve Coronel on 06-21-2022 ALP [Catalytic activity/Vol] 52 U/L 32-92 [facility] Serum or plasma anion gap de terminationOrdered By: Steve Coronel on 06-21-2022 Anion gap [Moles/Vol] 12.7 mmol/L 6.0-15.0 [facility] Serum or plasma aspartate am inotransferase measurement (enzymatic activity/volume)Ordered By: Steve Coronel on 06-21-2022 AST [Catalytic activity/Vol] 19 U/L 10-42 [facility] Serum or plasma calcium merari urement (mass/volume)Ordered By: Steve Coronel on 06-21-2022 Calcium [Mass/Vol] 9.1 mg/dL 8.2-10.2 [facility] Serum or plasma chloride lisa surement (moles/volume)Ordered By: Steve Coronel on 06-21-2022 Chloride [Moles/Vol] 100 mmol/L 95-114 [facility] Serum or plasma glucose merari urement (mass/volume)Ordered By: Steve Coronel on 06-21-2022 Glucose [Mass/Vol] 97 mg/dL 70-100 [facility] Comment on above: ADA recommended refe rence rangeRandom Glucose Reference Range is dependent on time and content of last meal. Glucose of more than 200 mg/dL in a nonstressed, ambulatory subject supports the diagnosis of Diabetes Mellitus. Serum or plasma potassium me asurement (moles/volume)Ordered By: Steve Coronel on 06-21-2022 Potassium [Moles/Vol] 3.9 mmol/L 3.5-5.1 [facility] Serum or plasma sodium measu rement (moles/volume)Ordered By: Steve Coronel on 06-21-2022 Sodium [Moles/Vol] 135 mmol/L 136-146 [facility] Serum or plasma total biliru bin measurement (mass/volume)Ordered By: Steve Coronel on 06-21-2022 Bilirubin [Mass/Vol] 0.6 mg/dL 0.3-1.2 [facility] Serum or plasma total carbon dioxide measurement (moles/volume)Ordered By: Steve Coronel on 06-21-2022 CO2 [Moles/Vol] 26.2 mmol/L 22.0-30.0 [facility] Serum or plasma urea nitroge n measurement (mass/volume)Ordered By: Steve Coronel on 06-21-2022 Urea nitrogen [Mass/Vol] 8 mg/dL 9 [facility] Specific gravity Auto test s trip (U) [Rel density]Ordered By: Steve Coronel on 06-21-2022 Specific gravity (U) [Rel density] 1.005 1.001-1.030 [facility] Troponin I.cardiac [Mass/vol ume] in Serum or Plasma by High sensitivity methodOrdered By: Steve Coronel on 06-21-2022 Troponin I.cardiac High sensitivity method [Mass/Vol] < 3 pg/mL 0-15 [facility] Urine clarity by refractomet ry automatedOrdered By: Steve Coronel on 06-21-2022 Clarity Refractometry automated (U) Clear Clear [facility] Urine glucose measurement by automated test strip (mass/volume)Ordered By: Steve Coronel on 06-21-2022 Glucose Auto test strip (U) [Mass/Vol] Normal mg/dL Normal [facility] Urine hemoglobin detection b y automated test stripOrdered By: Steve Coronel on 06-21-2022 Hemoglobin Auto test strip Ql (U) Negative Negative [facility] Urine leukocyte esterase det ection by automated test stripOrdered By: Steve Coronel on 06-21-2022 Leukocyte esterase Auto test strip Ql (U) Negative Negative [facility] Urobilinogen Auto test strip (U) [Mass/Vol]Ordered By: Steve Coronel on 06-21-2022 Urobilinogen (U) [Mass/Vol] Normal mg/dL Normal [facility] WBC Auto (Bld) [#/Vol]Ordere d By: Steve Coronel on 06-21-2022 WBC (Bld) [#/Vol] 9.5 10*3/uL 3.8-11.6 [facility] pH Auto test strip (U)Ordere d By: Steve Coronel on 06-21-2022 pH (U) 7.5 [pH] 5.0-9.0 [facility] Office Visit (Cardiology)on 06-04-2022 Follow-up visit [...] Done: 04Jun2022 Tobacco Use Screening; Status:Complete; Done: [id number] Patient Instructions Please bring all medicines, vitamins, [...] and no (more content not included)... Normal [employer] COVID + FLU Quick Testingon 04-28-2022 SARS-CoV-2 (COVID-19) RNA CESAR+probe Ql (Unsp spec) Positive [employer] Other COVID + FLU Quick Testing Negative [employer] Other Quick Strepon 04-28-2022 S. pyogenes Org specific cx Ql (Throat) Negative [employer] Other Quick Strep [facility] [employer] Other Otheron 04-18-1998 CONVERTED ELECTRONIC SIGNATURE [employer] (Electronic signature on file) Final Signed Out: 04/18/1998 09:51 [facility] CONVERTED FINAL DIAGNOSIS SPECIMEN ADEQUACY SATISFACTORY FOR EVALUATION GENERAL CATEGORIZATION WITHIN NORMAL LIMITS HORMONAL EVALUATION HORMONAL PATTERN COMPATIBLE WITH AGE AND HISTORY [facility] CONVERTED ORDERING PROVIDER Ordering Provider: PETER LOBO [facility] CONVERTED PAP DISCLAIMER The Pap test serves as a screening tool for early detection of cervical cancer. The Pap test does not represent a final diagnostic test for cervical cancer. Furthermore, the Pap test was not designed to screen for other malignancies (endometrial, ovarian cancer, etc....). False negatives and false positives have occurred. If clinically indicated, further patient evaluation is recommended. [facility] Vital Signs Date Time Vital Sign Value Performing Clinician Facility 12-05-2023 11:42-0400 Body height 170.18 cm DO Diony [employer] Work Phone: [facility] 12-05-2023 11:42-0400 Body mass index (BMI) [Ratio] 40.7 kg/m2 DO Diony [employer] Work Phone: [facility] 12-05-2023 11:42-0400 Body temperature 98.2 [degF] DO Diony [employer] Work Phone: [facility] 12-05-2023 11:42-0400 Body weight 117.93 kg DO Diony [employer] Work Phone: [facility] 12-05-2023 11:42-0400 Diastolic blood pressure 94 mm[Hg] DO Diony [employer] Work Phone: [facility] 12-05-2023 11:42-0400 Heart rate 78 /min DO Diony [employer] Work Phone: [facility] 12-05-2023 11:42-0400 SaO2% (BldA) [Mass fraction] 94 % DO Diony Cromley II Work Phone: [facility] 12-05-2023 11:42-0400 Systolic blood pressure 138 mm[Hg] DO Diony Cromley II Work Phone: [facility] 10-03-2023 11:47-0400 Body height 170.18 cm DO Diony Cromley II Work Phone: [facility] 10-03-2023 11:47-0400 Body mass index (BMI) [Ratio] 45.2 kg/m2 DO Diony Cromley II Work Phone: [facility] 10-03-2023 11:47-0400 Body weight 131 kg DO Diony Cromley II Work Phone: [facility] 09-20-2023 11:34-0400 Body height 170.18 cm DO Diony Cromley II Work Phone: [facility] 09-20-2023 11:34-0400 Body temperature 98.1 [degF] DO Diony Cromley II Work Phone: [facility] 09-20-2023 11:34-0400 Body weight 131.9 kg DO Diony Cromley II Work Phone: [facility] 09-20-2023 11:34-0400 Diastolic blood pressure 101 mm[Hg] DO Diony Cromley II Work Phone: [facility] 09-20-2023 11:34-0400 Heart rate 86 /min DO Diony Cromley II Work Phone: [facility] 09-20-2023 11:34-0400 Respiratory rate 19 /min DO Diony Cromley II Work Phone: [facility] 09-20-2023 11:34-0400 SaO2% (BldA) [Mass fraction] 97 % DO Diony Cromley II Work Phone: [facility] 09-20-2023 11:34-0400 Systolic blood pressure 167 mm[Hg] DO Diony Cromley II Work Phone: [facility] 07-22-2023 10:32-0500 Body temperature 98.2 [degF] DO Diony Cromley II Work Phone: [facility] 07-22-2023 10:32-0500 Diastolic blood pressure 78 mm[Hg] DO Diony Cromley II Work Phone: [facility] 07-22-2023 10:32-0500 Heart rate 79 /min DO Diony Cromley II Work Phone: [facility] 07-22-2023 10:32-0500 Respiratory rate 16 /min DO Diony Cromley II Work Phone: [facility] 07-22-2023 10:32-0500 SaO2% (BldA) [Mass fraction] 96 % DO Diony Cromley II Work Phone: [facility] 07-22-2023 10:32-0500 Systolic blood pressure 132 mm[Hg] DO Diony Cromley II Work Phone: [facility] 07-22-2023 08:20-0500 Body height 170.18 cm DO Diony Cromley II Work Phone: [facility] 07-22-2023 08:20-0500 Body weight 124.2 kg DO Diony Cromley II Work Phone: [facility] 07-08-2023 14:25-0500 Body height 170.18 cm Roula James Other [employer] Other 07-08-2023 14:25-0500 Body mass index (BMI) [Ratio] 42.28 kg/m2 Roula James Other [employer] Other 07-08-2023 14:25-0500 Body temperature 99.6 [degF] Roula James Other [employer] Other 07-08-2023 14:25-0500 Body weight 122.47 kg Roula James Other [employer] Other 07-08-2023 14:25-0500 Diastolic blood pressure 85 mm[Hg] Roula James Other [employer] Other 07-08-2023 14:25-0500 SaO2% (BldA) [Mass fraction] 96 % Roula James Other [employer] Other 07-08-2023 14:25-0500 Systolic blood pressure 140 mm[Hg] Roula James Other [employer] Other 03-29-2023 10:13-0400 Diastolic blood pressure 98 mm[Hg] PHYSICIAN NO [facility] 03-29-2023 10:13-0400 Heart rate 70 /min PHYSICIAN NO [facility] 03-29-2023 10:13-0400 Respiratory rate 20 /min PHYSICIAN NO [facility] 03-29-2023 10:13-0400 SaO2% (BldA) [Mass fraction] 98 % PHYSICIAN NO [facility] 03-29-2023 10:13-0400 Systolic blood pressure 167 mm[Hg] PHYSICIAN NO [facility] 03-29-2023 08:29-0400 Body height 170.18 cm PHYSICIAN NO [facility] 03-29-2023 08:29-0400 Body weight 120.2 kg PHYSICIAN NO [facility] 03-27-2023 13:45-0400 Body height 170.18 cm Oscar Reed Other [employer] Other 03-27-2023 13:45-0400 Body mass index (BMI) [Ratio] 42.03 kg/m2 Oscar Reed Other [employer] Other 03-27-2023 13:45-0400 Body temperature 98.1 [degF] Oscar Reed Other [employer] Other 03-27-2023 13:45-0400 Body weight 121.75 kg Oscar Reed Other [employer] Other 03-27-2023 13:45-0400 Diastolic blood pressure 92 mm[Hg] Oscar Reed Other [employer] Other 03-27-2023 13:45-0400 Respiratory rate 18 /min Oscar Reed Other [employer] Other 03-27-2023 13:45-0400 SaO2% (BldA) [Mass fraction] 97 % Oscar Reed Other [employer] Other 03-27-2023 13:45-0400 Systolic blood pressure 156 mm[Hg] Oscar Reed Other [employer] Other 02-17-2023 13:15-0400 Body height 170.18 cm Beny Alvarez Other [employer] Other 02-17-2023 13:15-0400 Body mass index (BMI) [Ratio] 42.03 kg/m2 Beny Alvarez Other [employer] Other 02-17-2023 13:15-0400 Body weight 121.75 kg Beny Alvarez Other [employer] Other 02-17-2023 13:15-0400 Diastolic blood pressure 79 mm[Hg] Beny Alvarez Other [facility] [employer] Other 02-17-2023 13:15-0400 Systolic blood pressure 139 mm[Hg] Beny Alvarez Other [facility] [employer] Other 01-24-2023 10:47-0400 Diastolic blood pressure 84 mm[Hg] DO Donya Billings Work Phone: [facility] 01-24-2023 10:47-0400 Heart rate 94 /min DO Donya Billings Work Phone: [facility] 01-24-2023 10:47-0400 Respiratory rate 20 /min DO Donya Billings Work Phone: [facility] 01-24-2023 10:47-0400 SaO2% (BldA) [Mass fraction] 98 % DO Donya Billings Work Phone: [facility] 01-24-2023 10:47-0400 Systolic blood pressure 181 mm[Hg] DO Donya Billings Work Phone: [facility] 01-24-2023 09:58-0400 Body height 170.18 cm DO Donya Billings Work Phone: [facility] 01-24-2023 09:58-0400 Body temperature 98 [degF] DO Donya Billings Work Phone: [facility] 01-24-2023 09:58-0400 Body weight 122.75 kg DO Donya Billings Work Phone: [facility] 12-30-2022 23:30-0400 Diastolic blood pressure 84 mm[Hg] DO Donya Billings Work Phone: [facility] 12-30-2022 23:30-0400 Heart rate 81 /min DO Donya Billings Work Phone: [facility] 12-30-2022 23:30-0400 Respiratory rate 20 /min DO Donya Billings Work Phone: [facility] 12-30-2022 23:30-0400 SaO2% (BldA) [Mass fraction] 98 % DO Donya Billings Work Phone: [facility] 12-30-2022 23:30-0400 Systolic blood pressure 176 mm[Hg] DO Donya Billings Work Phone: [facility] 12-30-2022 17:21-0400 Body height 170.18 cm DO Donya Billings Work Phone: [facility] 12-30-2022 17:21-0400 Body temperature 97.6 [degF] DO Donya Billings Work Phone: [facility] 12-30-2022 17:21-0400 Body weight 122.1 kg DO Donya Blilings Work Phone: [facility] 12-20-2022 16:32-0400 Diastolic blood pressure 87 mm[Hg] DO Donya Billings Work Phone: [facility] 12-20-2022 16:32-0400 Heart rate 80 /min DO Donya Billings Work Phone: [facility] 12-20-2022 16:32-0400 Respiratory rate 18 /min DO Donya Billings Work Phone: [facility] 12-20-2022 16:32-0400 SaO2% (BldA) [Mass fraction] 98 % DO Donya Billings Work Phone: [facility] 12-20-2022 16:32-0400 Systolic blood pressure 137 mm[Hg] DO Donya Billings Work Phone: [facility] 12-20-2022 12:47-0400 Body height 170.18 cm DO Donya Billings Work Phone: [facility] 12-20-2022 12:47-0400 Body temperature 98.7 [degF] DO Donya Billings Work Phone: [facility] 12-20-2022 12:47-0400 Body weight 121.5 kg DO Donya Awa Work Phone: [facility] 12-08-2022 08:50-0400 Body height 170.18 cm Donya Billings Work Phone: [facility] DO Work Phone: 12-08-2022 08:50-0400 Body mass index (BMI) [Ratio] 42.29 kg/m2 Donya Billings Work Phone: [facility] DO Work Phone: 12-08-2022 08:50-0400 Body surface area Derived from formula 2.3 m2 Donya Billings Work Phone: [facility] [address] DO Work Phone: 12-08-2022 08:50-0400 Body weight 122.47 kg Donya Billings Work Phone: [facility] DO Work Phone: 12-08-2022 08:50-0400 Diastolic blood pressure 80 mm[Hg] Donya Billings Work Phone: [facility] DO Work Phone: 12-08-2022 08:50-0400 Heart rate 80 /min Donya Billings Work Phone: [facility] DO Work Phone: 12-08-2022 08:50-0400 Systolic blood pressure 128 mm[Hg] Donya Billings Work Phone: [facility] [address] DO Work Phone: 11-06-2022 00:59-0400 Diastolic blood pressure 68 mm[Hg] DO Donya Billings Work Phone: [facility] 11-06-2022 00:59-0400 Heart rate 86 /min DO Donya Billings Work Phone: [facility] 11-06-2022 00:59-0400 Respiratory rate 19 /min DO Donya Billings Work Phone: [facility] 11-06-2022 00:59-0400 SaO2% (BldA) [Mass fraction] 99 % DO Donya Billings Work Phone: [facility] 11-06-2022 00:59-0400 Systolic blood pressure 139 mm[Hg] DO Donya Billings Work Phone: [facility] 11-05-2022 20:12-0400 Body height 170.18 cm DO Donya Billings Work Phone: [facility] 11-05-2022 20:12-0400 Body temperature 97.9 [degF] DO Donya Billings Work Phone: [facility] 11-05-2022 20:12-0400 Body weight 122.95 kg DO Donya Billings Work Phone: [facility] 10-13-2022 10:03-0400 Body height 170.18 cm Donya Billings Work Phone: [facility] [address] [place] Work Phone: 10-13-2022 10:03-0400 Body mass index (BMI) [Ratio] 41.98 kg/m2 Donya Billings Work Phone: [facility] [address] [place] Work Phone: 10-13-2022 10:03-0400 Body surface area Derived from formula 2.29 m2 Donya Billings Work Phone: [facility] [address] [place] Work Phone: 10-13-2022 10:03-0400 Body weight 121.56 kg Donya Billings Work Phone: [facility] [address] [place] Work Phone: 10-13-2022 10:03-0400 Diastolic blood pressure 68 mm[Hg] Donya Billings [facility] Phone: [facility] [place] Work Phone: 10-13-2022 10:03-0400 Heart rate 68 /min Donya Billings Work Phone: [facility] [address] [place] Work Phone: 10-13-2022 10:03-0400 Systolic blood pressure 122 mm[Hg] Donya Billings Work Phone: [facility] [address] [place] Work Phone: 09-01-2022 14:30-0400 Body height 170.18 cm Oliver Mario Other [employer] Other 09-01-2022 14:30-0400 Body mass index (BMI) [Ratio] 41.97 kg/m2 Oliver Mario Other [employer] Other 09-01-2022 14:30-0400 Body weight 121.56 kg Oliver Mario Other [employer] Other 09-01-2022 14:30-0400 Diastolic blood pressure 96 mm[Hg] Oliver Mario Other [employer] Other 09-01-2022 14:30-0400 Systolic blood pressure 159 mm[Hg] Oliver Mario Other [employer] Other 07-28-2022 13:20-0500 Body height 170.18 cm Donya Billings Work Phone: [facility] [address] DO Work Phone: 07-28-2022 13:20-0500 Body mass index (BMI) [Ratio] 42.13 kg/m2 Donya S Awa Work Phone: [facility] [address] DO Work Phone: 07-28-2022 13:20-0500 Body surface area Derived from formula 2.29 m2 Donya Andriy Billings Work Phone: [facility] [address] DO Work Phone: 07-28-2022 13:20-0500 Body weight 122.02 kg Donya Andriy Billings Work Phone: [facility] DO Work Phone: 07-28-2022 13:20-0500 Diastolic blood pressure 68 mm[Hg] Donya Billings Work Phone: [facility] [address] DO Work Phone: 07-28-2022 13:20-0500 Heart rate 78 /min Donya Billings Work Phone: [facility] DO Work Phone: 07-28-2022 13:20-0500 Systolic blood pressure 142 mm[Hg] Donya Billings Work Phone: [facility] DO Work Phone: 06-21-2022 13:10-0500 Diastolic blood pressure 79 mm[Hg] DO Donya Billings Work Phone: [facility] 06-21-2022 13:10-0500 Heart rate 75 /min DO Donya Billings Work Phone: [facility] 06-21-2022 13:10-0500 Respiratory rate 18 /min DO Donya Billings Work Phone: [facility] 06-21-2022 13:10-0500 SaO2% (BldA) [Mass fraction] 98 % DO Donya Billings Work Phone: [facility] 06-21-2022 13:10-0500 Systolic blood pressure 164 mm[Hg] DO Donya Billings Work Phone: [facility] 06-21-2022 10:26-0500 Body temperature 98.7 [degF] DO Donya Billings Work Phone: [facility] 05-12-2022 16:00-0500 Body height 170.18 cm Oliver Mario Other [employer] Other 05-12-2022 16:00-0500 Body mass index (BMI) [Ratio] 41.81 kg/m2 Oliver Mario Other [employer] Other 05-12-2022 16:00-0500 Body weight 121.11 kg Oliver Mario Other [employer] Other 05-12-2022 16:00-0500 Diastolic blood pressure 89 mm[Hg] Oliver Fabiano Other [employer] Other 05-12-2022 16:00-0500 Systolic blood pressure 139 mm[Hg] Oliver Fabiano Other [employer] Other 04-28-2022 16:00-0500 Body height 170.18 cm Oscar Reed Other [employer] Other 04-28-2022 16:00-0500 Body mass index (BMI) [Ratio] 39.93 kg/m2 Oscar Reed Other [employer] Other 04-28-2022 16:00-0500 Body temperature 97.9 [degF] Oscar Reed Other [employer] Other 04-28-2022 16:00-0500 Body weight 115.67 kg Oscar Reed Other [employer] Other 04-28-2022 16:00-0500 Diastolic blood pressure 88 mm[Hg] Oscar Reed Other [employer] Other 04-28-2022 16:00-0500 Respiratory rate 18 /min Oscar Reed Other [employer] Other 04-28-2022 16:00-0500 SaO2% (BldA) [Mass fraction] 97 % Oscar Reed Other [employer] Other 04-28-2022 16:00-0500 Systolic blood pressure 139 mm[Hg] Oscar Reed Other [employer] Other Encounters Encounter Date Encounter Type Care Provider Facility Start: 01-10-2024 ambulatory DO Diony Singh Fac ility:[facility] Start: 01-09-2024 ambulatory Zeinab Galicia Facility :[facility] Start: 12-05-2023 End: 12-05-2023 ambulatory DO Diony Singh II Work Phone: [facility] Work Phone: Start: 12-05-2023 End: 12-05-2023 Patient encounter procedure DO Diony Singh II Work Phone: [facility] [place] Work Phone: Start: 12-05-2023 End: 12-05-2023 ambulatory Willian Jensen MD Facility:[facility] Start: 11-16-2023 ambulatory Donya BILLINGS Facilit y:[facility] Start: 10-12-2023 ambulatory MD Franklyn Villeda ty:[facility] Start: 10-11-2023 End: 10-11-2023 ambulatory DO Diony Singh Facility:[facility] Start: 10-10-2023 End: 10-10-2023 ambulatory Willian Jensen MD Facility:[facility] Start: 10-03-2023 End: 10-03-2023 ambulatory DO Diony J Cromley II Work Phone: [facility] Work Phone: Start: 10-03-2023 End: 10-03-2023 Patient encounter procedure DO Diony Cromley II Work Phone: [facility] Work Phone: Start: 09-21-2023 End: 09-21-2023 ambulatory DO Diony J Cromley Facility:[facility] Start: 09-20-2023 End: 09-20-2023 Emergency department patient visit Diony J Cromley II Facility:[facility] Start: 09-20-2023 End: 09-20-2023 Emergency department patient visit DO Diony Cromley II Work Phone: [facility] Work Phone: Start: 09-06-2023 End: 09-06-2023 ambulatory DO Diony J Cromley Facility:[facility] Start: 08-16-2023 End: 08-16-2023 ambulatory Diony J Cromley II Facility:[facility] Start: 08-16-2023 End: 08-16-2023 ambulatory DO Diony J Cromley II Work Phone: [facility] Work Phone: Start: 08-16-2023 End: 08-16-2023 Patient encounter procedure DO Diony Cromley II Work Phone: [facility] [place] Work Phone: Start: 07-28-2023 End: 07-28-2023 ambulatory Diony J Cromley II Facility:[facility] Start: 07-28-2023 End: 07-28-2023 Patient encounter procedure DO Diony Cromley II Work Phone: [facility] [place] Work Phone: Start: 07-28-2023 End: 07-28-2023 ambulatory MD Franklyn MADERA Facility:[facility] Start: 07-26-2023 End: 07-26-2023 ambulatory DO Diony Singh Facility:[facility] Start: 07-22-2023 End: 07-22-2023 Emergency department patient visit Diony Arias Samantha II Facility:[facility] Start: 07-22-2023 End: 07-22-2023 Emergency department patient visit DO Diony Stephanierubin II Work Phone: [facility]Emer[facility] Work Phone: Start: 07-08-2023 End: 07-08-2023 ambulatory Roula James Other [employer] Other Start: 07-08-2023 Office outpatient visit 15 minutes Roula James [facility] Start: 07-08-2023 Telephone encounter Stephie Brambila MD Work Phone: Rheumatology Start: 06-28-2023 End: 06-28-2023 ambulatory DO Diony Singh Facility:[facility] Start: 06-14-2023 End: 06-14-2023 ambulatory Beny Alvarez Other [employer] Other Start: 06-14-2023 Telephone encounter Beny Marques ck [facility] Start: 05-24-2023 End: 05-24-2023 ambulatory [facility] Facility:[facility] Start: 05-19-2023 End: 05-19-2023 [facility] Start: 05-17-2023 End: 05-18-2023 ambulatory [facility] Facility:[facility] Start: 05-10-2023 End: 05-10-2023 ambulatory DO Diony Singh Facility:[facility] Start: 04-14-2023 End: 04-14-2023 ambulatory DO Diony Singh Facility:[facility] Start: 04-11-2023 End: 04-11-2023 ambulatory XXXX NONE Facility:[facility] Start: 03-29-2023 End: 03-29-2023 ambulatory Diony Singh II Facility:[facility] Start: 03-29-2023 End: 03-29-2023 Admission to same day surgery center PHYSICIAN NO [facility] Work Phone: Start: 03-29-2023 End: 03-29-2023 ambulatory PHYSICIAN NO [facility] Work Phone: Start: 03-28-2023 End: 03-28-2023 ambulatory [employer]ING [employer] 2ND SHIFT-C BECKY AGUIRRE Facility:[facility] Start: 03-27-2023 End: 03-27-2023 ambulatory Oscar Reed Other [employer] Other Start: 03-27-2023 Office outpatient visit 15 minutes Oscar Reed [facility] Start: 03-17-2023 End: 03-17-2023 ambulatory Diony Singh II Facility:[facility] Start: 03-17-2023 End: 03-17-2023 ambulatory PHYSICIAN NO [facility] Work Phone: Start: 03-17-2023 End: 03-17-2023 Patient encounter procedure PHYSICIAN NO [facility] [place] Work Phone: Start: 03-11-2023 End: 03-11-2023 ambulatory DO Diony Singh Facility:[facility] Start: 03-08-2023 End: 03-08-2023 ambulatory MILL HAND Roula Schmidt Facility:[facility] Start: 02-17-2023 End: 02-17-2023 Patient encounter procedure PHYSICIAN NO [facility] [place] Work Phone: Start: 02-17-2023 End: 02-17-2023 ambulatory PHYSICIAN NO [facility] Work Phone: Start: 02-17-2023 Office outpatient visit 25 minutes Beny MERCEDES [facility] Start: 02-16-2023 End: 02-16-2023 ambulatory XXXX NONE Facility:[facility] Start: 02-02-2023 End: 02-02-2023 ambulatory Donya OZUNA Facility:[facility] Start: 01-27-2023 End: 01-27-2023 ambulatory MD Franklyn MADERA Facility:[facility] Start: 01-26-2023 End: 01-26-2023 ambulatory MARLYN HARRIS Facility:[facility] Start: 01-24-2023 End: 01-24-2023 Emergency department patient visit Yogi Mcgraw Facility:[facility] Start: 01-24-2023 Chart Update Donya madera Work Phone: -[facility] [address] DO Work Phone: Start: 01-24-2023 End: 01-24-2023 Emergency department patient visit DO Donya Billings Work Phone: [facility]-Emergency Room Work Phone: Start: 01-21-2023 End: 01-21-2023 ambulatory Diony Singh II Facility:[facility] Start: 01-21-2023 End: 01-21-2023 ambulatory DO Donya Billings Work Phone: [facility] Work Phone: Start: 01-21-2023 End: 01-21-2023 Patient encounter procedure DO Donya Billings Work Phone: [facility] [address] Work Phone: Start: 01-21-2023 End: 04-24-2023 ambulatory MILL HAND Roula Schmidt Facility:[facility] Start: 01-18-2023 End: 01-18-2023 ambulatory DO Diony Singh Facility:[facility] Start: 01-05-2023 End: 01-05-2023 ambulatory MILL HAND Roula Schmidt Facility:[facility] Start: 01-05-2023 End: 01-05-2023 Emergency department patient visit Christiano Solis Facility:[facility] Start: 01-04-2023 End: 01-04-2023 ambulatory XXXX NONE Facility:[facility] Start: 12-30-2022 End: 12-31-2022 Emergency department patient visit Diony Singh II Facility:[facility] Start: 12-30-2022 End: 12-30-2022 Emergency department patient visit DO Donya Billings Work Phone: [facility]Emer[facility] Room Work Phone: Start: 12-29-2022 End: 12-29-2022 ambulatory Amanda Montiel Facility:[facility] Start: 12-29-2022 End: 12-29-2022 ambulatory DO Donya Billings Work Phone: [facility] Work Phone: Start: 12-29-2022 End: 12-29-2022 Patient encounter procedure DO Donya Billings Work Phone: [facility] Work Phone: Start: 12-24-2022 End: 12-24-2022 ambulatory MD Franklyn MADERA Facility:[facility] Start: 12-20-2022 End: 12-20-2022 Emergency department patient visit Josué Napier Facility:[facility] Start: 12-20-2022 End: 12-20-2022 Emergency department patient visit DO Donya Billings Work Phone: [facility]Emer[facility] Work Phone: Start: 12-08-[address] Phillip Benjamin Facility: Start: 12-08-2022 FUV, Provider: Phillip Benjamin, Status: Pen, Time: 8:40 AM Donya Billings Work Phone: -[facility] [address] DO Work Phone: Start: 12-08-2022 Office outpatient visit 25 minutes Donya Billings Work Phone: [facility] [address] DO Work Phone: Start: 12-06-2022 Chart Update Donya madera [facility] Phone: [facility] Work Phone: Start: 11-25-[address] Donya Harvey Awa Facility:[id number] Start: 11-05-2022 End: 11-06-2022 Emergency department patient visit Yogi Pimentel Xenia Facility:[facility] Start: 11-05-2022 End: 11-06-2022 Emergency department patient visit DO Donya Billings Work Phone: [facility]-Emergency Room Work Phone: Start: 10-31-2022 Chart Update Donya madera Work Phone: [facility] [address] [place] Work Phone: Start: 10-28-[address] Donya Harvey Awa Facility:[id number] Start: 10-13-2022 Office outpatient visit 25 minutes Donya Billings Work Phone: [facility] Work Phone: Start: 10-13-[address] Donya [place] Facility:[id number] Start: 10-07-2022 End: 10-08-[address] DONYA BILLINGS Facility:[facility]1 Start: 10-01-2022 End: 10-02-2022 ambulatory UNKNOWN PROVIDER Facility:[facility] Start: 10-01-2022 End: 10-01-2022 Subsequent hospital visit by [facility] Rad[facility] Comment on above: Thoracic spine pain Start: 09-30-2022 Orders Only Javad velez MD Work Phone: [facility] Start: 09-17-2022 End: 09-17-2022 Orders Only Javad Leach MD Work Phone: [facility] Start: 09-17-2022 End: 09-17-2022 Patient encounter procedure DO Donya Billings Work Phone: [facility] [address] Work Phone: Start: 09-02-2022 End: 09-06-2022 ambulatory UNKNOWN PROVIDER Facility:[facility] Start: 09-02-2022 End: 09-06-2022 Office outpatient new 45 minutes Javad Leach MD Work Phone: [facility] Comment on above: Thoracic spine pain (Primary Dx) Start: 09-01-2022 End: 09-01-2022 ambulatory Oliver Mario Other [facility] [employer] Other Start: 09-01-2022 Patient encounter procedure Oliver Sarmientocelsa [facility] Gastroenterology Start: 08-24-2022 Orders Only Javad velez MD Work Phone: [facility] Neurosurgery Start: 08-10-2022 End: 08-10-2022 ambulatory DO Donya Billings Work Phone: [facility] Work Phone: Start: 08-10-2022 End: 08-10-2022 Patient encounter procedure DO Donya Billings Work Phone: [facility] [place] Work Phone: Start: 07-28-2022 FUV, Provider: Phillip Benjamin, Status: Pen, Time: 1:10 PM Donya Billings Work Phone: [facility] [address] DO Work Phone: Start: 07-28-2022 Office outpatient visit 25 minutes Donya Billings Work Phone: [facility] [address] DO Work Phone: Start: 07-28-[address] Phillip Benjamin Facility: Start: 07-26-2022 Chart Update Donya madera Work Phone: [facility] [address] DO Work Phone: Start: 07-16-[address] Donya Parekh Awa Facility:[id number] Start: 07-15-2022 End: 07-16-[address] ZHANE MANTILLA . Facility: Start: 07-13-2022 End: 07-13-2022 ambulatory Oliver Mario Other [employer] Other Start: 07-13-2022 Telephone encounter Oliver Mario [facility] Start: 06-21-2022 End: 06-21-2022 Emergency department patient visit DO Donya Billings Work Phone: [facility]Emer[facility] Work Phone: Start: 06-15-2022 End: 06-15-2022 ambulatory DO Donya Billings Work Phone: [facility] Work Phone: Start: 06-15-2022 End: 06-15-2022 Patient encounter procedure DO Donya Billings Work Phone: [facility]-Electrodiagnostics Work Phone: Start: 06-04-[address] Phillip Benjamin Facility: Start: 05-12-2022 End: 05-12-2022 ambulatory Oliver Mario Other [employer] Other Start: 05-12-2022 Patient encounter procedure Oliver Maroi [facility] Start: 05-04-2022 End: 05-04-2022 ambulatory DO Donya Billings Work Phone: [facility] Work Phone: Start: 05-04-2022 End: 05-04-2022 Patient encounter procedure DO Donya Billings Work Phone: [facility]MRI [address] Start: 04-28-2022 End: 04-28-2022 ambulatory Oscar Reed Other [facility] [employer] Other Start: 04-28-2022 Office outpatient visit 15 minutes Oscar Reed [facility] Start: 04-15-2022 End: 04-16-[address] ZHANE [...] 04-04-1998 Patient encounter procedure Conversion Yamel Benson [facility] Start: 04-04-1998 Results Only Conversion Yamel Benson [facility] Procedures Date Procedure Procedure Detail Performing Clinician Start: 12-05-2023 COVID Antigen (POC) DO Diony Oconnormlrubin II Work Phone: Start: 09-20-2023 Plain X-ray of right shoulder DO Diony Anastasiamley II Work Phone: Start: 08-16-2023 MR thoracic spine wo con DO Diony Croml ey II Work Phone: Start: 07-22-2023 Blood culture for bacteria, including anaerobic screen DO Diony Cromley II Work Phone: Start: 07-22-2023 SARS-CoV-2, Influenza & RSV (PCR) DO Kranthi winters Cromley II Work Phone: Start: 07-22-2023 Plain chest X-ray DO Diony Anastasiamley II Work Phone: Start: 03-29-2023 Esophagogastroduodenoscopy PHYSICIAN [...] Start: 10-01-2022 CT NEURO IMAGE IMPORT Javad Leach MD Work Phone: Start: 09-17-2022 Computed tomography of thoracic spine without contrast DO Donya Billings Work Phone: Start: 06-21-2022 CT of chest without contrast DO Donya Billings Work Phone: Start: 06-21-2022 CT of abdomen and pelvis without contrast DO Donya Billings Work Phone: Start: 05-04-2022 MR thoracic spine wo con DO Donya madera Work Phone: Start: 05-04-2022 XR pre/post mri xray DO Donya Awa Work Phone: Start: 04-04-1998 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 Bethao Ap section Donya mckenzie Work Phone: H/O: section Previous c esarean section DO Diony Cromley II Work Phone: H/O: hysterectomy H/O: hysterectomy DO Ro aurora Cromley II Work Phone: History Of Prior Surgery Leslie Billings Work Phone: History of thyroidectomy S/P thyroidectom y DO Diony Cromley II Work Phone: Hysterectomy Donya Billings Work Phone: Procedure on back Donya Billings Work Phone: Thyroidectomy Donya madera Work Phone: Total colonoscopy Donya Ashraf Awa Work Phone: Plan of Treatment Date Care Activity Detail Author Start: 08-11-2027 Cholesterol [Mass/volume] in Serum or Plasma Cholesterol [facility] Start: 2027 Shingles (RZV) Vacci ne (1 of 2) Shingles (RZV) Vaccine (1 of 2) [facility] Start: 05-19-2026 Diabetes Screening Diabetes Screenin g [facility] Start: 12-30-2023 Screening for malign ant neoplasm of breast Mammogram Screening [facility] Start: 07-22-2023 Bacteria identified in Blood by Culture [facility] Start: 04-20-2023 FUV, Provider: Phillip Benjamin, Status: Pen, Time: 3:00 PM FUV, Provider: Phillip Benjamin, Status: Pen, Time: 3:00 PM [facility] 250 DO Work Phone: Start: 03-29-2023 [facility] Start: 03-29-2023 End: 03-29-2023 [facility] Start: 01-28-2023 Influenza vaccination Influenza Vacc ine (#1) [facility] Start: 01-24-2023 Duplex scan of lower limb veins US venous duplex LE LT [facility] Start: 01-24-2023 US Lower extremity v ein - left [facility] Start: 12-30-2022 CT of head without contrast CT head/brain wo con [facility] Start: 12-30-2022 CT Unspecified body region WO contrast [facility] Start: 12-08-2022 FUV, Provider: Phillip Benjamin, Status: Pen, Time: 8:40 AM FUV, Provider: Phillip Benjamin, Status: Pen, Time: 8:40 AM [facility] [place] Work Phone: Start: 12-02-2022 FUV, Provider: Phillip Benjamin, Status: Pen, Time: 3:00 PM FUV, Provider: Phillip Benjamin, Status: Pen, Time: 3:00 PM [facility] 250 DO Work Phone: Start: 11-25-2022 ECHO, Provider: RILEY RODRIGUEZI ULTRASOUND 01,[id number], Status: Pen, Time: 7:45 AM ECHO, Provider: RILEY HHVI ULTRASOUND 01,[id number], Status: Pen, Time: 7:45 AM [facility] [address] [place] Work Phone: Start: 09-30-2022 End: 10-01-2023 DOWNLOAD POWERSHARE IMAGES TO [facility] DOWNLOAD POWERSHARE IMAGES TO [facility] Imaging Routine Thoracic spine pain Expected: 09/30/2022, Expires: 10/01/2023 [employer] Work Phone: Comment on above: Expected: 09/30/2022 , Expires: 10/01/2023 Start: 09-17-2022 End: 09-18-2023 DOWNLOAD POWERSHARE IMAGES TO [facility] DOWNLOAD POWERSHARE IMAGES TO [facility] Imaging Routine Thoracic spine pain Expected: 09/17/2022, Expires: 09/18/2023 [employer] Work Phone: Comment on above: Expected: 09/17/2022 , Expires: 09/18/2023 Start: 09-06-2022 End: 09-07-2023 CT Thoracic spine WO contrast CT T-SPINE W/O CONTRAST Imaging Within 1 week Thoracic spine pain Expected: 09/06/2022, Expires: 09/07/2023 [employer] Work Phone: Comment on above: Expected: 09/06/2022 , Expires: 09/07/2023 Start: 09-02-2022 End: 09-02-2022 Patient encounter procedure 09/02/2022 Office Visit Orthopedics Javad Leach MD [address] [place] [id number] [facility] Start: 08-24-2022 End: 08-25-2023 DOWNLOAD POWERSHARE IMAGES TO [facility] DOWNLOAD POWERSHARE IMAGES TO [facility] Imaging Routine Cervical spondylosis with myelopathy Expected: 08/24/2022, Expires: 08/25/2023 [facility] Work Phone: Comment on above: Expected: 08/24/2022 , Expires: 08/25/2023 Start: 08-10-2022 [facility] Start: 2022 Cholesterol [Mass/volume] in Serum or Plasma Cholesterol [facility] Start: 2022 Lipid panel Lipid Screening [facility] Start: 2022 Screening for malign ant neoplasm of colon [facility] Start: 02-27-2022 Influenza vaccination Influenza Vacc ine (#1) [facility] Start: 01-29-2020 Influenza vaccination INFLUENZA (#1) [facility] Start: 2017 Mammography MAMMOGRAM [facility] Start: 2017 Screening for malign ant neoplasm of breast Mammography [facility] Start: 11-28-2015 Annual wellness visit Annual W memeness Visit (G0438) [facility] Start: 2007 HPV TESTING HPV TESTING [facility] Start: 2007 Screening for malign ant neoplasm of cervix HPV Testing [facility] Start: 1998 PAP TESTING PAP TESTING [facility] Start: 1998 Screening for malign ant neoplasm of cervix [facility] Start: 1996 Urine microalbumin profile DTAP,TDAP,TD (1 - Tdap) [facility] Start: 1995 ANNUAL PCP TEAM ELASTIC YARN TWISTER GIBSON DISEASE VISIT ANNUAL PCP TEAM CHRONIC DISEASE VISIT [facility] Start: 1995 HEPATITIS C SCREENING HEPATITIS C SC ROSA [facility] Start: 1995 Hepatitis C screening [facility] Start: 1995 HIV SCREENING HIV SCREENING [facility] Start: 1995 HIV screening HIV Screening [facility] Start: 1995 Tetanus + diphtheria + acellular pertussis vaccine (product) Tdap Booster [facility] Start: 1992 HIV screening HIV Test [facility] Start: 1988 Urine microalbumin profile DTaP,Tdap,Td Vaccine (4 - Tdap) [facility] Start: 1977 COVID-19 Vaccine (#1) COVID-19 Vacci ne (#1) [facility] Start: 1977 Screening for malign ant neoplasm of colon Colonoscopy [facility] 25-hydroxyvitamin D2 [Mass/volume] in Serum or Plasma [facility] 25-hydroxyvitamin D3 [Mass/volume] in Serum or Plasma [facility] 25-Hydroxyvitamin D3+25-Hydroxyvitamin D2 [Mass/volume] in Serum or Plasma [facility] Albumin [Mass/volume ] in Serum or Plasma [facility] Albumin/Globulin ratio [facility] Borrelia burgdorferi Ab [Interpretation] in Serum [facility] Borrelia burgdorferi IgG Ab [Presence] in Serum or Plasma by Immunoassay [facility] Borrelia burgdorferi IgG+IgM Ab [Presence] in Serum by Immunoassay [facility] Borrelia burgdorferi IgM Ab [Presence] in Serum or Plasma by Immunoassay [facility] Cefuroxime free [Mass/volume] in Serum or Plasma [facility] Electrophoresis: [id number] [facility] Electrophoresis: [id number] [facility] Electrophoresis: beta-globulin [facility] Electrophoresis: raisa ma globulin [facility] Estrogen [Mass/volum e] in Serum or Plasma [facility] Globulin [Mass/volum e] in Serum [facility] Lutropin [Units/volu me] in Serum or Plasma [facility] Patient Education [facility] Work Phone: Patient referral [facility] Work Phone: Progesterone [Mass/volume] in Serum or Plasma [facility] Protein [Mass/volume ] in Serum or Plasma [facility] Rheumatoid factor [Units/volume] in Serum or Plasma [facility] Immunizations Immunization Date Immunization Notes Care Provider Watson deleon 06-05-2001 hepatitis B vaccine, adult dosage Donya Billings Work Phone: [facility] 250 DO Work Phone: 12-28-2000 hepatitis B vaccine, adult dosage Donya Billings Work Phone: [facility] 250 DO Work Phone: 11-21-2000 measles, mumps and rubella virus vaccine [facility] Bill[facility] Work Phone: 11-14-2000 hepatitis B vaccine, adult dosage [facility]a Billings [facility] Work Phone: 01-07-1983 measles, mumps and rubella virus vaccine Donya Billings [facility] Phone: [facility] Work Phone: 10-11-1979 diphtheria, tetanus toxoids and acellular pertussis vaccine, unspecified formulation [facility]onya Billings [facility] Work Phone: 10-11-1979 poliovirus vaccine, inactivated Donya Billings Work Phone: [facility] 250 DO Work Phone: 08-01-1979 diphtheria, tetanus toxoids and pertussis vaccine Donya Billings Work Phone: [facility] 250 DO Work Phone: 08-01-1979 poliovirus vaccine, inactivated Donya Billings Work Phone: [facility] 250 DO Work Phone: 04-18-1979 diphtheria, tetanus toxoids and pertussis vaccine Donya Billings [facility] Phone[facility] Work Phone: 05-13-1978 diphtheria, tetanus toxoids and pertussis vaccine Donya Billings Work Phone: [facility] Work Phone: 05-13-1978 poliovirus vaccine, inactivated Donya Billings Work Phone: [facility] 250 DO Work Phone: 1977 poliovirus vaccine, inactivated Donya S Awa Work Phone: -[facility] 250 DO Work Phone: Payers Date Payer Category Payer Medicaid [id number] 2021 Self-pay [id number] 2013 Medicare [id number] 1977 Unknown [id number] 2.16. 840.1.956229.3.579.2.732 1977 Unknown [id number] 2.16. 840.1.036916.3.579.2.732 1977 Unknown [id number] 2.16.84 0.1.298462.3.579.2.593 1977 Unknown [id number] 2.16.84 0.1.984254.3.579.2.593 1977 Unknown [id number] 2.16.84 0.1.746619.3.579.2.593 1977 Unknown [id number] 2.16.84 0.1.372387.3.579.2.593 1977 Unknown [id number] 2.16.84 0.1.544937.3.579.2.593 1977 Unknown [id number] 2.16.84 0.1.211924.3.579.2.593 1977 Unknown [id number] 2.16.84 0.1.708624.3.579.2.593 1977 Unknown [id number] 2.16.84 0.1.247952.3.579.2.593 1977 Unknown [id number] 2.16.8 40.1.424687.3.579.2.1068 1977 Unknown [id number] 2.16.8 40.1.791529.3.579.2.8 1977 Unknown [id number] 2.16. 840.1.655044.3.579.2. 1977 Unknown [id number] 2.16. 840.1.203918.3.579.2. 1977 Unknown [id number] 2.16. 840.1.447434.3.579.2. 1977 Unknown [id number] 2.16. 840.1.082344.3.579.2. 1977 Unknown [id number] 2.16. 840.1.748411.3.579.2. 1977 Unknown [id number] 2.16.8 40.1.303159.3.579.2 1977 Unknown [id number] 2.16.8 40.1.656320.3.579.2. 1977 Unknown [id number] 2.16.8 40.1.441238.3.579.2 1977 Unknown [id number] 2.16.8 40.1.624481.3.579.2. 1977 Unknown [id number] 2.16.8 40.1.911903.3.579.2. 1977 Unknown [id number] 2.16.8 40.1.490238.3.579.2. 1977 Unknown [id number] 2.16.8 40.1.477347.3.579.2. 1977 Unknown [id number] 2.16.8 40.1.584406.3.579.2 1977 Unknown [id number] 2.16.8 40.1.136753.3.579.2. 1977 Unknown [id number] 2.16.8 40.1.664505.3.579.2. 1977 Unknown [id number] 2.16.8 40.1.037179.3.579.2. 1977 Unknown [id number] 2.16.8 40.1.710248.3.579.2. 1977 Unknown [id number] 2.16.8 40.1.114009.3.579.2 1977 Unknown [id number] 2.16.8 40.1.306925.3.579.2. 1977 Unknown [id number] 2.16.8 40.1.088534.3.579.2 1977 Unknown [id number] 2.16.8 40.1.913207.3.579.2 1977 Unknown [id number] 2.16.8 40.1.795639.3.579.2 1977 Unknown [id number] 2.16.8 40.1.671360.3.579.2 1977 Unknown [id number] 2.16.8 40.1.432287.3.579.2 1977 Unknown [id number] 2.16.8 40.1.236852.3.579.2. 1977 Unknown [id number] 2.16.8 40.1.539697.3.579.2 1977 Unknown [id number] 2.16.8 40.1.886211.3.579.2 1977 Unknown [id number] 2.16.8 40.1.624314.3.579.2. 1977 Unknown [id number] 2.16.8 40.1.658080.3.579.2. 1977 Unknown [id number] 2.16.8 40.1.509232.3.579.2 1977 Unknown [id number] 2.16. 840.1.974112.3.579.2.196 1977 Unknown [id number] 2.16. 840.1.688344.3.579.2.196 1959 Medicaid [id number] 2. 16.840.1.837650.19 1959 Medicare [id number] 2.1 6.840.1.727572.19 Unknown Unknown [id number] 2.16.8 40.1.584856.3.579.2.531 Unknown [id number] 2.16.8 40.1.426120.3.579.2.531 Unknown [id number] 2.16.8 40.1.988841.3.579.2.531 Unknown [id number] 2.16.8 40.1.411717.3.579.2.531 Unknown [id number] 2.16.8 40.1.135158.3.579.2.531 Unknown [id number] 2.16.8 40.1.884317.3.579.2.531 Unknown [id number] 2.16.8 40.1.628605.3.579.2.531 Unknown [id number] 2.16.8 40.1.943117.3.579.2.531 Unknown [id number] 2.16.8 40.1.650857.3.579.2.531 Unknown [id number] 2.16.8 40.1.775308.3.579.2.531 Unknown [id number] 2.16.8 40.1.235367.3.579.2.531 Unknown [id number] 2.16.8 40.1.875031.3.579.2.531 Unknown [id number] 2.16.8 40.1.914379.3.579.2.531 Social History Date Type Detail Facility Tobacco smoking status [facility] Unknown if ever smoked [facility] Start: 1975 Sex Assigned At Not on file [facility] Start: 05-17-2023 Sex Assigned At [employer] Other Start: 11-19-2019 End: 05-17-2023 Tobacco smoking status NHIS Ex-smoker (finding) [facility] Start: 1975 Sex Assigned At Female [facility] Start: 06-21-2022 End: 06-21-2022 Tobacco smoking status NHIS Never smoked tobacco (finding) [facility] Start: 05-17-2023 Current smoker Current smoker -[facility] Del Angel DO Work Phone: Comment on above: gilson; quit 01/28/22; Tobacco smoking status CTIS Tobacco [facility] consumption [facility] Start: 12-20-2022 End: 09-20-2023 History of tobacco use [facility] End: 07-30-2011 History of tobacco use Cigarette Smoker [facility] Start: 09-02-2022 Tobacco use and exposure Smokeless tobacco non-user [facility] Start: 05-17-2023 Alcohol intake Current non-dr 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 (finding) [facility] National Score (1-100), lower number is lower risk 65 [facility] Start: 01-18-2014 [facility] Start: 07-22-2023 End: 07-22-2023 Tobacco smoking status CTIS Current some day smoker [facility] NEGATED: Highlighted row [facility] Goals Date Patient Goal Desired Activity /State Clinical Notes 11-12-2021 to 07-08-2023 Note Date & Type Note Facility 07-08-2023 Evaluation note Encounter Date Diagnosis Assessment Notes Jun, Cough (ICD-10 - R05.9) Jun, COVID (ICD-10 - U07.1) Rest. Drink plenty of fluids. Take hqjj-ovv-xljab er Tylenol or Motrin as needed for fever or discomfort. May continue to take gtfy-nkg-ylrvi er cold and flu medicine for symptom management of your COVID as needed, but you will need to follow the instructions on the box. May take dzhd-pot-qtbmx er Delsym or Robitussin for cough. Take [...] to rest, drink plenty of fluids, take zlbg-mzb-yyicp er Tylenol or Motrin as needed for fever or discomfort and may take bvsx-ntv-rzwdv er cold and flu medicine for symptom management of with COVID. Patient was told she can take psle-lwi-uvlfp er cough medicine for her cough. She is to follow-up with her primary care provider if symptoms persist or go to the ER if symptoms worsen including chest pain shortness of breath difficulty breathing pain with deep breathing. Patient is agreeable to treatment plan. Jun, Sore throat (ICD-10 - J02.9) Jun, Acute streptococcal pharyngitis (ICD-10 - J02.0) [employer] Other 02-09-2024 Miscellaneous Notes* Telephone Encounter - Stephie Brambila MD - 07/08/2023 11:04 AM EST Called patient patient to discuss lab results. MARCIO panel, dsDNA, C3, C4 were normal. No major abnormalities with other labs. At this time, no signs of rheumatologic autoimmune disease. Discussed Dermatology evaluation for rash and hair loss. Stephie Brambila MD [facility] NoteHNO ID: [id number] Author: STEPHIE BRAMBILA MD Service: ? Author Type: Physician Type: Progress Notes Filed: 06/26/2023 14:11 Note Text: Rheumatology Clinic Date of Service: 05/24/2023 Patient: Lupe Pickard Medical Record: [id number] Last Rheumatology visit: 05/24/2023 (with Stehpie Brambila) Telephone Visit History of Present Illness [...] uses heat/ice, massage which helps. She takes Huger 5mg that does not do much for [...] 10 years. 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 Family History: No known FH of autoimmune [...] by mouth. CALCIUM CARBONATE (more content not included)...[facility] 05-17-2023 NoteHNO ID: [id number] Author: Stephie Brambila MD Service: ? Author Type: Physician Type: Progress Notes Filed: 05/17/2023 2:50 PM Note Text: Rheumatology Clinic Date of Service: 05/17/2023 Patient: Lupe Pickard Medical Record: [id number] Last Rheumatology visit: None at [facility] History of Present Illness Lupe Pickard is [...] uses heat/ice, massage which helps. She takes Huger 5mg that does not do much for [...] 10 years. 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 Family History: No known FH of autoimmune [...] by mouth. CALCIUM CARBONATE/VITAMIN (more content not included)...[facility]11-08-2023 NotePROCEDURE: 30 DAY EVENT MONITOR REFERRING [...] suggested. READ BY: Bradford Fay Dictated: 04/06/2023 [id number] Transcribed: 04/06/2023 cc:ROCKY [facility] HospitalComment on above:Result Comment: Electronically Signed By: Brayan PELAYO, Owen Brown\.br\Date and Time Signed: 04/06/23 20:52 [id number] [facility] note* Encounter Date Diagnosis Assessment Notes Treatment Notes Treatment Clinical Notes Feb, Rash and nonspecific skin eruption (ICD-10 - R21) Likely rash is related to monitor adhesive, although iron cannot be fully excluded. Stop iron. Consult prescribing physician tomorrow about iron supplementation and follow thhe plan of care. Continue with heart monitor and call nba player office tomorrow morning for guidance as she [...] Pt understood and agreed to treatment plan. [employer] Other 09-21-2023 Evaluation note* Encounter Date Diagnosis [...] Jan, Blood in stool (ICD-10 - K92.1) [employer] Other 08-30-2023 NoteChief Complaint referral to [facility] for anxiety HPI Staff Patient will be establishing with Dr. Singh in February. Patient would like to have a referral to [facility] [place] for her Anxiety. PHQ -9 score 6 [...] PCP as scheduled in February 2023 Ordered: [facility] External Ambulatory Referral 2. Screen for colon cancer (Z12.11: Encounter for screening for malignant neoplasm of colon) Ordered: [facility] External Ambulatory Referral Orders: [facility] External Ambulatory Referral Follow-up No qualifying data [...] 2000 intl units or (more content not included)...[facility]Result Comment: Electronically Signed By: TAVO HARRIS CNP\Date and Time Signed: 01/26/23 14:46 [id number] History of Present illness Narrative* Javad Leach [...] Risk protocol implemented: No documented in this [id number] Evaluation note* Encounter Date Diagnosis Assessment Notes Treatment Notes Treatment Clinical Notes Aug, Irritable bowel syndrome with constipation (ICD-10 - K58.1) Start Amitiza 24mcg twice daily. Start Miralax in addition to Amitiza. Titrate dose as needed. Referral to [facility] for rectal manometry [employer] Other 03-01-2023 History of Present illness Narrative* [...] months or earlier if the need arise [place] [address] DO Work Phone: 1(940) 648-783502-16-2023 NoteCONSULTATION CONSULTATION DATE: 07/15/2022 HISTORY OF PRESENT ILLNESS: This is a 47-year-old female who returns to the clinic for a three month follow up for her chronic mid back pain and lower back pain. She was last seen on 04/15/2022 and, at that time, she received a referral to Dr. Bradley Leach at [facility]. She was having increased thoracic pain with [...] Bradley Leach at his new location at [facility] in [place]. Refills for baclofen and tramadol at the set dose and frequency will be sent to her pharmacy. We will furnish a letter to her PCP, at the patient's request, to take over her tramadol prescription. She will be followed up in the office post procedure.[facility] [id number] Note CONSULTATION PROCEDURE DATE: 07/29/2022 PREOPERATIVE DIAGNOSIS: [...] will be followed up in the office.[facility] [id number] Evaluation note* Encounter Date Diagnosis Assessment Notes Treatment Notes Treatment Clinical Notes Apr, Irritable bowel syndrome with constipation (ICD-10 - K58.1) Stop Amitiza Start Trualcne 3mg daily Follow up in 3-4 months [employer] Other 11-30-2022 Evaluation note* Encounter Date Diagnosis [...] (ICD-10 - J02.9) strep neg, see above. [employer] Other 11-17-2022 NoteCONSULTATION CONSULTATION DATE: 04/15/2022 HISTORY [...] send a referral to spine surgeon in [place], Dr. Bradley Leach. Patient is in agreement to this, and we will follow her up at our clinic in three months' time.[facility] [id number] NoteCONSULTATION CONSULTATION DATE: 01/06/2022 This is a [...] to initial consultation and prefers this at [facility]. We will see the patient in three months' time unless otherwise indicated.[facility] [id number] NoteCONSULTATION PROCEDURE DATE: 01/06/2022 PRE AND POSTOPERATIVE [...] will be followed up in the office.[facility] 11-12-2021 NoteCONSULTATION CONSULTATION DATE: 11/12/2021 HISTORY [...] Patient agrees with the plan of care. [facility] Signed and Approved by: BHAVNA MARR . 11/25/2021 16:24:00[facility] noteNo assessment [facility] Work Phone: Evaluation noteNo InformationNortMercy Fitzgerald Hospital [employer] Other Evaluation note* Diagnosis Cervical spondylosis with [...] Onset Date Resolution Status Abdominal pain acute [facility] Work Phone: Evaluation note* Diagnosis Onset Date Resolution Status Rotator cuff syndrome of right shoulder acute [facility] Work Phone: Evaluation note* Diagnosis Onset Date Resolution Status Rotator cuff syndrome of right shoulder acute Sinusitis, acute maxillary n oneactive Bronchitis noneactive [facility] Work Phone: [employer] general Narrative - Reported* Type Description Date Medical History Fibromyalgia Medical History arthritis in knees Medical History bursitis in hips Medical History Arthritis in lower back Medical History IBS Medical History depression Medical History anxiety Medical History Graves disease Medical History S/P Thyroidectomy Surgical History x 4 Surgical History hysterectomy Surgical History Thyroidectomy 06/2018 Hospitalization History childbirth Hospitalization History see surgery [facility] [employer] Other Hisjmxt general Narrative - Reported* Type Description Date [...] Hospitalization History childbirth Hospitalization History see surgery [employer] Other History of Present illness Narrative* Patient [...] months or earlier if the need arise -[facility] Del Angel DO Work Phone: History of [...] ED if you develop worsening symptoms or concernsFir[facility] Work Phone: Hospital Discharge instructions Additional [...] your primary care doctor and with your 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 Follow-up for your stress test and continue to take your antihypertensive medication as prescribed. Follow-up with your PCP for ongoing treatment of your high blood pressure. Follow-up with the eye doctor listed below regarding your left eye pain.[facility] Work Phone: Hospital Discharge instructions Additional [...] me in 6-8 weeks. Low FODMAP diet [employer] 1 p.o. every morning -Notify the doctor if you have any problems. -Office number [phone] [facility] Work Phone: Chief Complaint and Reason [...] Complaint chest tightness feve r cough sob Chief Complaint chest tightness feve r cough sob r79.89 d64.9 e03.9 e87.6 thoracic spondylosis Chief Complaint chest tightness feve r cough sob r79.89 d64.9 e03.9 e87.6 thoracic spondylosis rt shoulder pain Chief Complaint chest tightness feve r cough sob r79.89 d64.9 e03.9 e87.6 thoracic spondylosis rt shoulder pain CONSULT DR SINGH RT SHOULDER PAIN, XR/[facility] Reason for Visit Rotator cuff syndrom e of right shoulder Chief Complaint rt shoulder pain CONSULT DR SINGH RT SHOULDER PAIN, XR/[facility] cough, congestion Reason for Visit Rotator cuff syndrom e of right shoulder Sinusitis, acute maxillary Bronchitis Advance Directives No Advanced Directives Records Found [...] CT T-SPINE W/O CONTRAST Javad Leach MD [address] [place] [address] SCAN Referral ID Status Reason Start Date Expiration Date V isits Requested Visits Authorized [id number] Authorized 09/06/2022 09/06/2023 1 1 Specialty Diagnoses / Procedures Referred By Yared madera Referred To Contact Radiology Diagnoses Cervical spondylosis with myelopathy Procedures DOWNLOAD POWERSHARE IMAGES TO [facility] Javad Leach MD [facility] [place] [address] [facility]IOLOG[facility] [address] [place] [address] Referral ID Status Reason Start Date Expiration Date V isits Requested Visits Authorized [id number] Authorized 08/24/2022 08/24/2023 1 1 Summary Purpose Additional Source Comments Source Comments (unrecognize d section and content) In the event this informatio n is protected by the Federal Confidentiality of Alcohol and Drug Abuse Patient Records regulations: The Federal rules restrict any use of the information to criminally investigate or prosecute any alcohol or drug abuse patient.[facility] the event this information is protected by the Federal Confidentiality of Alcohol and Drug Abuse Patient Records regulations: The Federal rules restrict any use of the information to criminally investigate or prosecute any alcohol or drug abuse patient.[facility] REASON FOR VISIT (unrecogniz ed section and content) Reason Comments New patient, to establish relationship B ack pain Specialty Diagnoses / Procedures Referred By Contac t Referred To Contact Neurosurgery Diagnoses Protrusion of thoracic intervertebral disc Thoracic radiculitis Ernie Roper [address] [place] [address] [facility] NEUROS[facility] [address] [place] [address] Referral ID Status Reason Start Date Expiration Date V isits Requested Visits Authorized [id number] Authorized 07/22/2022 07/22/2023 3 3 Specialty Diagnoses / Procedures Referred By Contac t Referred To Contact Radiology Diagnoses Thoracic spine pain Procedures CT NEURO IMAGE IMPORT(KYLE) DOWNLOAD POWERSHARE IMAGES TO Javad Leach MD [address] [place] [address] [facility] [address] [place] [address] Referral ID Status Reason Start Date Expiration Date Visits Re quested Visits Authorized [id number] Closed 09/30/2022 09/30/2023 1 1 Care Teams [...] Dates Diony Singh II, DO Primary Care Provider, Other P rovider Active Radha Mcintosh , KANDACE-C Attending Provider Active Team Status: Inactive Member Role Status Dates Diony Singh II, DO Primary Care Provider Active Beny Alvarez MD Attending Provider Active Becky Aguirre APRN CHAIR INSTALLER-C Other Provider Act cecelia Tare Weigher Relationship Specialty Start Date End Date Donya Billings, DO Referring Family Medicine 11/22/22 Team Status: Inactive Member Role Status Dates Diony Singh II, DO Primary Care Provider Active Start: July 22, 2023 End: July 22, 2023 Jacqui Samayoa , DO Emergency Provider Active St art: July 22, 2023 End: July 22, 2023 Team Status: Inactive Member Role Status Dates Diony Singh II, DO Primary Care Pro vider, Attending Provider Active Start: July 28, 2023 End: July 28, 2023 Team Status: Inactive Member Role Status Dates Diony Singh II, DO Primary Care Provider Active Start: August 16, 2023 End: August 16, 2023 MARCELLUS Vallejo Attending Provider Active St art: August 16, 2023 End: August 16, 2023 Team Status: Inactive Member Role Status Dates Diony Singh II, DO Primary Care Provider Active Start: September 20, 2023 End: September 20, 2023 Javad Lozoya APRN Emergency Provider Active Start: September 20, 2023 End: September 20, 2023 Team Status: Inactive Member Role Status Dates Diony Singh II, DO Primary Care Provider Active Start: October 03, 2023 End: October 03, 2023 Chaz Carrillo , DO Attending Provider Active St art: October 03, 2023 End: October 03, 2023 Team Status: Inactive Member Role Status Dates Diony Singh II, DO Primary Care Provider Active Start: December 05, 2023 End: December 05, 2023 Selina M Lomas , METAL TREATER Attending Provider Active Sta rt: December 05, 2023 End: December 05, 2023 Goals (unrecognized section and content) Goals may be documented in a n alternate section INFORMATION SOURCE (unrecogn ized section and content) DATE CREATED AUTHOR 10/04/2022 [employer] DATE CREATED AUTHOR AUTHOR'S ORGANIZ ATION 10/11/2022 [facility] DATE CREATED AUTHOR AUTHOR'S ORGANIZ ATION 11/27/2022 [facility] DATE CREATED AUTHOR AUTHOR'S ORGANIZ ATION 12/09/2022 [facility] DATE CREATED AUTHOR AUTHOR'S ORGANIZ ATION 12/09/2022 [employer] DATE CREATED AUTHOR AUTHOR'S ORGANIZ ATION 07/10/2023 [facility] DATE CREATED AUTHOR AUTHOR'S ORGANIZ ATION 09/21/2023 [facility] DATE CREATED AUTHOR AUTHOR'S ORGANIZ ATION 12/15/2023 [facility] DATE CREATED AUTHOR AUTHOR'S ORGANIZ ATION 12/17/2023 [facility] FOR RECORDS PERTAINING TO PATIENTS WHO [...] BE BASED ON THE PRIMARY CLINICAL RECORDS. [facility] [employer] provides no warranty or guarantee of the accuracy or completeness of information in this document.
[2024-01-02 11:19] VITALS: BP 151/103; PULSE 68; TEMP 36.7; O2SAT 96
[2024-01-02 11:45] VITALS: BP 185/102; PULSE 72; O2SAT 96
[2024-01-02] MEDS: LIDOCAINE HCL 2% 400 MG/20 ML MDV 15 ML INJ (11:46)
[2024-01-02] MEDS: BUPIVACAINE HCL 0.25% PF 25 MG/10 ML VIAL INJ (11:46)
[2024-01-02 11:47] VITALS: BP 171/99; PULSE 74; O2SAT 96
--- NOTE | 2024-01-02 11:49 | W.PM.PROCNOT ---
Date of procedure: 01/02/24 Pre-op diagnosis: Pain due to lumbar spondylosis without myelopathy Post-op diagnosis: same as pre-op Procedure: Procedure: Bilateral L3-4, 4-5 medial branch block Medications: Bupivacaine 0.25% 6cc The patient was seen and examined in the preoperative holding area.? An informed consent was obtained and placed on the chart.? The patient was brought to the medical procedure unit and placed in the prone position.? A timeout was completed verifying correct patient, procedure site, positioning, plan, and special equipment.? Using aseptic technique, the needle was placed at left L4. Under direct fluoroscopic visualization a Quincke-tipped spinal needle was advanced to the junction of the superior articulating process with the transverse process at the designated medial branch segment.? Preceded by negative aspiration, the above-mentioned injectate was placed in 1 mL aliquots.? The procedure was repeated at left L5, S1.? The needle was removed and insertion site was covered. The same procedure, at the same levels, was completed on the right side. The patient was taken to the postprocedural recovery area and monitored for an appropriate length of time before found suitable for discharge in the company of a responsible adult. Anesthesia: Local Surgeon: Willian Jensen Pathology: none sent Condition: stable Disposition: no change
== END 2024-01-02 11:53 | disposition home or self-care (01) ==
LOC: SURGOUT 10:59
PROVIDERS: Visit Provider Anesthesiology
DX: M47.816 Spondylosis without myelopathy or radiculopathy, lumbar region (principal)
CPT/HCPCS: 64493; 64494; J0665

== ENCOUNTER 2024-01-09 12:22 | Outpatient (OUT) | payer MEDICARE, MEDICAID, SELFPAY ==
--- NOTE | 2024-01-09 12:47 | PM.CN ---
Consult Note: HPI Data of Consult Patient: known to practice within the last 3 years Consult date: 01/09/24 Requesting Physician: Willian Jensen MD Primary Care Provider: Non-Staff Physician, Consult Narrative Reason for consult: low back pain Narrative: 48yof who presents for assessment. underwent bilateral l3-4, l4-5 medial branch block, which provided significant relief of >80% for over 2 hours and subsequent return of pain to baseline. she was at an 8 pre procedure, which then came down to a 1-2, post procedure, with return to an 8. she is back at baseline. continues to engage in provider directed home exercises >6 weeks, without benefit. uses robaxin as needed. denies adverse med side effects. cc:: CC: Willian Jensen MD Review of Systems ROS Status of ROS 10 or more systems reviewed and unremarkable except as noted in history and below [facility] Medical History Osteoarthritis ?M19.90 - Unspecified osteoarthritis, unspecified site (ICD-10) Fibromyalgia ?M79.7 - Fibromyalgia (ICD-10) IBS (irritable bowel syndrome) ?K58.9 - Irritable bowel syndrome without diarrhea (ICD-10) Constipation ?K59.00 - Constipation, unspecified (ICD-10) Surgical History History of hysterectomy ?Z90.710 - Acquired absence of both cervix and uterus (ICD-10) History of thyroidectomy ?E89.0 - Postprocedural hypothyroidism (ICD-10) Meds Home Medications and Allergies Home Medications ?Medication ?Instructions ?Recorded ?Confirmed ?Type cholecalciferol (vitamin D3) 50 50 mcg PO DAILY 12/30/22 01/02/24 History mcg (2,000 unit) capsule (Vitamin D3) levothyroxine 112 mcg tablet 112 mcg PO DAILY 12/30/22 01/02/24 History liothyronine 5 mcg tablet 10 mcg PO DAILY 12/30/22 01/02/24 History lubiprostone 24 mcg capsule 24 mcg PO DAILY 12/30/22 01/02/24 History magnesium oxide 400 mg (241.3 mg 400 mg PO DAILY 12/30/22 01/02/24 History magnesium) tablet melatonin 10 mg tablet 10 mg PO DAILY 12/30/22 01/02/24 History multivitamin (Daily Multi-Vitamin 1 tab PO DAILY 12/30/22 01/02/24 History tablet) diltiazem HCl 180 mg 240 mg PO Q24H 02/01/23 01/02/24 History capsule,extended release 24 hr Lactobacillus acidophilus 10 100 mmu cells PO DAILY 08/03/23 01/02/24 History billion cell capsule (Probiotic) escitalopram oxalate 20 mg tablet 20 mg PO DAILY 08/03/23 01/02/24 History (Lexapro) ferrous sulfate 325 mg (65 mg 325 mg PO DAILY 08/03/23 01/02/24 History iron) tablet (Feosol) propranolol 20 mg tablet 20 mg PO BID 08/03/23 01/02/24 History turmeric 400 mg capsule mg PO 08/03/23 History methocarbamol 1,000 mg tablet 1,000 mg PO TID #90 tabs 10/19/23 12/05/23 Rx Allergies Allergy/AdvReac Type Severity Reaction Status Date / Time No Known Drug Allergies Allergy Verified 01/02/24 11:16 Exam Narrative Exam Narrative: Psych-alert and oriented x 3. Attentive and appropriate, constitutionally normal, displays normal mood and affect per situation.? There are no obvious deficits in memory, reasoning, or intellect.? Skin-no obvious rashes, bruising, erythema noted to the patient's area of pain. Extremities- extremities are warm with minimal edema and palpable pulses. Lumbar-no significant tenderness to palpation noted in the lumbar spine and paraspinal musculature.? Pain is elicited with extension, and lateral rotation of the lumbar spine. Range of motion is slightly diminished with these motions due to pain. Facet loading maneuvers are positive bilaterally and do appear to be concordant with the patient's normal complaints of pain.? Coordination remains intact.? Gait remains non-antalgic. Assessment and Plan Assessment and Plan (1) Lumbar spondylosis: Plan 48yof who presents for assessment. failed conservative measures, as noted. given significant response to first diagnostic block, prudent to attempt diagnostic bilateral l3-4, l4-5 medial branch block under fluoroscopic guidance with the intention of proceeding to radiofrequency ablation. she is in agreement. meds reviewed, no changes. also discussed the possibility of spinal cord stimulation. she is interested in pursuing this option, and we discussed that we could pursue this depending on her response to more conservative measures. she expressed understanding. follow up after procedure.
== END 2024-01-09 12:23 | disposition home or self-care (01) ==
LOC: PM 12:22
PROVIDERS: Visit Provider Anesthesiology
DX: M47.816 Spondylosis without myelopathy or radiculopathy, lumbar region (principal)
CPT/HCPCS: G0463

== ENCOUNTER 2024-01-23 08:41 | Day surgery (SDC) | payer MEDICARE, MEDICAID, SELFPAY ==
[2024-01-23 09:28] VITALS: BP 160/96; PULSE 76; TEMP 36.6; O2SAT 96
[2024-01-23] MEDS: BUPIVACAINE HCL 0.25% PF 25 MG/10 ML VIAL 8 ML INJ (09:48)
[2024-01-23] MEDS: LIDOCAINE HCL 2% 400 MG/20 ML MDV INJ (09:48)
[2024-01-23 09:49] VITALS: BP 181/102; BP 187/94; PULSE 75; PULSE 76; O2SAT 95
--- NOTE | 2024-01-23 09:51 | W.PM.PROCNOT ---
Date of procedure: 01/23/24 Pre-op diagnosis: Pain due to lumbar spondylosis without myelopathy Post-op diagnosis: same as pre-op Procedure: Procedure: Bilateral L3-4, L4-5 medial branch block Medications: Bupivacaine 0.25% 6cc The patient was seen and examined in the preoperative holding area.? An informed consent was obtained and placed on the chart.? The patient was brought to the medical procedure unit and placed in the prone position.? A timeout was completed verifying correct patient, procedure site, positioning, plan, and special equipment.? Using aseptic technique, the needle was placed at left L3. Under direct fluoroscopic visualization a Quincke-tipped spinal needle was advanced to the junction of the superior articulating process with the transverse process at the designated medial branch segment.? Preceded by negative aspiration, the above-mentioned injectate was placed in 1 mL aliquots.? The procedure was repeated at left L4, 5.? The needle was removed and insertion site was covered. The same procedure, at the same levels, was completed on the right side. The patient was taken to the postprocedural recovery area and monitored for an appropriate length of time before found suitable for discharge in the company of a responsible adult. Anesthesia: Local Surgeon: Willian Jensen Pathology: none sent Condition: stable Disposition: no change
== END 2024-01-23 09:55 | disposition home or self-care (01) ==
LOC: SURGOUT 08:42
PROVIDERS: Visit Provider Anesthesiology
DX: M47.816 Spondylosis without myelopathy or radiculopathy, lumbar region (principal)
CPT/HCPCS: 64493; 64494; J0665

== ENCOUNTER 2024-01-25 12:58 | Outpatient (OUT) | payer MEDICARE, MEDICAID, SELFPAY ==
--- NOTE | 2024-01-25 13:31 | P.CN_ITS ---
Consult Note: HPI Data of Consult Patient: known to practice within the last 3 years Consult date: 01/09/24 Requesting Physician: Brielle Dominguez NP Primary Care Provider: Non-Staff Physician, MD Consult Narrative Reason for consult: low back pain Narrative: 48yof who presents for assessment. underwent bilateral l3-4, l4-5 medial branch block #2, which provided significant relief of >80% for over 2 hours and subsequent return of pain to baseline. she was at an 8 pre procedure, which then came down to a 0-1, post procedure, with return to an 8. patient noticed significant functional improvement, was able to paint without pain. she is back at baseline. continues to engage in provider directed home exercises >6 weeks, without benefit. uses robaxin as needed. denies adverse med side effects. cc:: CC: Brielle Dominguez NP Review of Systems ROS Status of ROS 10 or more systems reviewed and unremark able except as noted in history and below Musculoskeletal Reports: back pain PFSH PFSH Medical History Osteoarthritis ?M19.90 - Unspecified osteoarthritis, unspecified site (ICD-10) Fibromyalgia ?M79.7 - Fibromyalgia (ICD-10) IBS (irritable bowel syndrome) ?K58.9 - Irritable bowel syndrome without diarrhea (ICD-10) Constipation ?K59.00 - Constipation, unspecified (ICD-10) Surgical History History of hysterectomy ?Z90.710 - Acquired absence of both cervix and uterus (ICD-10) History of thyroidectomy ?E89.0 - Postprocedural hypothyroidism (ICD-10) Meds Home Medications and Allergies Home Medications ?Medication ?Instructions ?Recorded ?Confirmed ?Type cholecalciferol (vitamin D3) 50 50 mcg PO DAILY 12/30/22 01/23/24 History mcg (2,000 unit) capsule (Vitamin D3) levothyroxine 112 mcg tablet 112 mcg PO DAILY 12/30/22 01/23/24 History liothyronine 5 mcg tablet 10 mcg PO DAILY 12/30/22 01/23/24 History lubiprostone 24 mcg capsule 24 mcg PO DAILY 12/30/22 01/23/24 History magnesium oxide 400 mg (241.3 mg 400 mg PO DAILY 12/30/22 01/23/24 History magnesium) tablet melatonin 10 mg tablet 10 mg PO DAILY 12/30/22 01/23/24 History multivitamin (Daily Multi-Vitamin 1 tab PO DAILY 12/30/22 01/23/24 History tablet) diltiazem HCl 180 mg 240 mg PO Q24H 02/01/23 01/23/24 History capsule,extended release 24 hr Lactobacillus acidophilus 10 100 mmu cells PO DAILY 08/03/23 01/23/24 History billion cell capsule (Probiotic) escitalopram oxalate 20 mg tablet 20 mg PO DAILY 08/03/23 01/23/24 History (Lexapro) ferrous sulfate 325 mg (65 mg 325 mg PO DAILY 08/03/23 01/23/24 History iron) tablet (Feosol) propranolol 20 mg tablet 20 mg PO BID 08/03/23 01/23/24 History turmeric 400 mg capsule mg PO 08/03/23 History Allergies Allergy/AdvReac Type Severity Reaction Status Date / Time No Known Drug Allergies Allergy Verified 01/23/24 09:25 Exam Constitutional Documenting provider has reviewed patient's vital signs: yes Common normals: no apparent distress, oriented x3, healthy appearing, alert and well nourished General appearance: cooperative Nutritional appearance: overweight HENMT Common normals: normocephalic, hearing grossly normal bilaterally and moist oral mucous membranes Head and scalp: normocephalic Eye Common normals: PERRL Pupil: PERRL Neck & C-Spine Common normals: full ROM General: normal visual inspection Chest Common normals: inspection of chest normal Respiratory Common normals: normal respiratory effort, no retractions and no use of accessory muscles Back & Pelvis Thoracic spine/upper back: ROM limited, pain with ROM and paraspinal muscle tenderness Lumbar spine/lower back: ROM limited, pain with ROM, paraspinal muscle tenderness and straight leg raise negative bilaterally Other: no radiculopathy noted on exam no identifiable trigger points bilateral L3-S1 facet loading positive Extremity Common normals: normal to inspection and full ROM Neuro Common normals: oriented x3, CN's II-XII intact bilaterally, moves all extremities, no focal motor deficits, no sensory deficits noted and deep tendon reflexes 2+ bilaterally Sensorium/orientation: alert Motor exam: strength 5/5 throughout and no movement abnormalities noted Psych Common normals: mental status grossly normal, thought process normal, cooperative, affect normal, speech normal and activity/motor behavior normal Speech: normal speech Thought process: normal thought process Results Additional Findings Additional findings: If on a controlled substance or opioids, I have checked an [place] report on this patient and there are no aberrancies noted in the prescribing history.??If on a controlled substance or opioid a drug screen was completed and reviewed within the last year, and if there has not been a drug screen completed we ordered one today to monitor higher risk, state monitored pain medication use. As part of providing excellent, safe, comprehensive care, the following was completed at our patient's visit: 1. A medication reconciliation and review to ensure accurate knowledge of current/active medications, including asking our patients to inform us about any [id number] medications or herbal remedies/nutritional supplements/alternative remedies. 2. A review to specifically ensure our patients have had annual screening for screening for depression, screening for tobacco use, and screening for unhealthy alcohol use. For concerning screenings had a discussion with the patient, provided patient education, and recommended follow-up with primary care provider when appropriate. If patient noted with a risk of falling, they received education on strength, gait, and balance training to prevent future risk of falling. Assessment and Plan Assessment and Plan (1) Lumbar spondylosis: (2) Chronic pain syndrome: (3) Thoracic neuritis: (4) Thoracic spondylosis: Plan bilateral L3/4 L4/5 facet joint RFA under fluoroscopy with IV sedation for chronic bilateral low back pain secondary to lumbar spondylosis unresponsive to PT greater than 6 weeks, NSAIDs, Tylenol, various muscle relaxers. risks vs benefits reviewed patient would like to repeat thoracic RFAs in the future, has found moderate relief of thoracic pain greater than 6 months f/u after lumbar RFAs complete
== END 2024-01-25 12:59 | disposition home or self-care (01) ==
LOC: PM 12:58
PROVIDERS: Visit Provider Nurse Practitioner
DX: M47.816 Spondylosis without myelopathy or radiculopathy, lumbar region (principal); G89.4 Chronic pain syndrome; M54.14 Radiculopathy, thoracic region; M47.814 Spondylosis without myelopathy or radiculopathy, thoracic region
CPT/HCPCS: G0463

== ENCOUNTER 2024-02-13 08:43 | Day surgery (SDC) | payer MEDICARE, MEDICAID, SELFPAY ==
[2024-02-13 09:14] VITALS: BP 149/87; PULSE 63; TEMP 36.2; O2SAT 99
[2024-02-13] MEDS: 0.9 % SODIUM CHLORIDE 500 ML IV (09:20)
[2024-02-13] MEDS: BUPIVACAINE HCL 0.25% PF 25 MG/10 ML VIAL 4 ML INJ (10:00)
[2024-02-13] MEDS: LIDOCAINE HCL 2% 400 MG/20 ML MDV 16 ML INJ (10:01)
[2024-02-13] MEDS: TRIAMCINOLONE ACETONIDE 40 MG/ML VIAL 80 MG INJ (10:01)
--- NOTE | 2024-02-13 10:01 | P.ON_ITS ---
Date of procedure: 02/13/24 Pre-op diagnosis: Pain due to lumbar spondylosis without myelopathy Post-op diagnosis: same as pre-op Procedure: Procedure: Bilateral L3-4, 4-5 radiofrequency ablation Medications: Bupivacaine 0.25% 5cc, lidocaine 2% 6cc, kenalog 80mg The patient was seen and examined in the preoperative holding area.? The site was marked.? Written informed consent was obtained and placed on the chart.? The patient was brought to the medical procedure unit and placed in the prone position.? A timeout was completed verifying correct patient, procedure, positioning, and special requirements.? The skin overlying the target points, the designated medial branch, were prepped and draped in the usual sterile fashion.? The target point was achieved with a 20-gauge 15 cm with a 10 mm curved active tip radiofrequency cannula under direct fluoroscopic visualization.? The needle was inserted at level L4 on the right side. Needle tip position was confirmed with lateral fluoroscopic position.? Motor stimulation was carried out at 2 Hz up to 5 volts with the absence of extremity activity.? This was repeated at level L5, S1 on right side.?? Sensory stimulation was carried out.? Concordant pain was realized at the above- mentioned sites.? Then radiofrequency lesioning was carried out times 90 seconds at 80 degrees times 2 lesions at each level.? The radiofrequency probe was removed prior to cannula removal.? The above-mentioned injectate was placed in 1 mL increments.? The needle was removed. The same procedure, with the same steps, was then completed on the left side at the same levels. Insertion sites were covered.? The patient was taken to the postoperative recovery area and monitored for an appropriate length of time before being found suitable for discharge in the company of a responsible adult. Anesthesia: MAC Surgeon: Willian Jensen Pathology: none sent Condition: stable Disposition: no change
[2024-02-13 10:03] VITALS: BP 121/80; PULSE 65; TEMP 36.2; O2SAT 95
[2024-02-13 10:09] VITALS: BP 114/83; PULSE 69; TEMP 36.2; O2SAT 95
== END 2024-02-13 10:26 | disposition home or self-care (01) ==
LOC: SURGOUT 08:45
PROVIDERS: Visit Provider Anesthesiology
PROC: (CPT 1992; principal; 2024-02-13 09:40)
DX: M47.816 Spondylosis without myelopathy or radiculopathy, lumbar region (principal)
CPT/HCPCS: 64635; 64636; J0665; J2250; J2704; J3301

== ENCOUNTER 2024-03-21 10:12 | Outpatient (OUT) | payer MEDICARE, MEDICAID, SELFPAY ==
--- OUTSIDE RECORDS SUMMARY | 2024-03-21 10:25 | XMS_ITS | CCD ---
Author Organization [facility] Care Team Providers Care Rn Hedis Name Role Phone Donya Billings Primary Care Provider [phone] Oscar Reed Unavailable DO Donya Billings Primary Care Provider MARCELLUS Marr Attending Provider MD Phillip Benjamin Attending Provider DO Steve Coronel Emergency Provider Oliver Mario Unavailable Donya Billings Unavailable Unavailable Unavailable Unavailable Unavailable DO Donya Billings Primary Care Provider MD Phillip Benjamin Attending Provider DO Steve Coronel Emergency Provider MD Kenyetta Dove Attending Provider [phone] Unavailable Primary Care Provider Unavailabl DO Donya Mejia Primary Care Provider Javad Leach Attending Provider PROVIDER, UNKNOWN Admitting Unavailable PROVIDER, UNKNOWN Attending Unavailable JAVAD LEACH Referring Unavailable PROVIDER, UNKNOWN Admitting Unavailable PROVIDER, UNKNOWN Attending Unavailable ERNIE ROPER Referring Unavailable ANNALEE Champion, DR ZHANE Ashraf Admitting Unavailable ANNALEE Champion, DR ZHANE Ashraf Attending Unavailable AWA, DR DONYA Ashraf Primary Care Unavailable ANNALEE Champion, DR ZHANE Ashraf Consulting Unavailable HERIBERTO GONSALES Consulting Unavailable ANNALEE Champion, DR ZHANE Ashraf Admitting Unavailable ANNALEE Champion, DR ZHANE Ashraf Attending Unavailable AWA, DR DONYA Ashraf Primary Care Unavailable TANGELA COPELAND Consulting Unavailable MANTILLA ., DR ZHANE Ashraf Admitting Unavailable MANTILLA ., DR ZHANE Ashraf Attending Unavailable AWA, DR DONYA Ashraf Primary Care Unavailable MANTILLA ., DR ZHANE Ashraf Consulting Unavailable TERRISHEYLA Jc Consulting Unavailable MANTILLA ., DR ZHANE Ashraf Admitting Unavailable MANTILLA ., DR ZHANE Ashraf Attending Unavailable AWA, DR DONYA Ashraf Primary Care Unavailable MANTILLA ., DR ZHANE Ashraf Consulting Unavailable MARR ., TANGELA Consulting Unavailable MANTILLA ., DR ZHANE Ashraf Admitting Unavailable MANTILLA ., DR ZHANE Ashraf Attending Unavailable AWA, DR DONYA Ashraf Primary Care Unavailable MARR ., TANGELA Consulting Unavailable MANTILLA ., DR ZHANE Ashraf Admitting Unavailable MANTILLA ., DR ZHANE Ashraf Attending Unavailable AWA, DR DONYA Ashraf Primary Care Unavailable MARR ., TANGELA Consulting Unavailable AWA, DR DONYA Ashraf Primary Care Unavailable HALKER ., EMERITA Admitting Unavailable HALKER ., EMERITA Attending Unavailable HALKER ., EMERITA Consulting Unavailable MANTILLA ., DR ZHANE Ashraf Admitting Unavailable MANTILLA ., DR ZHANE Ashraf Attending Unavailable AWA, DR DONYA Ashraf Primary Care Unavailable MARR ., TANGELA Consulting Unavailable Awa, Dr. Donya Wray [facility] Benjamin, Dr. Koehler Attending Unavaila ble Awa, Dr. Donya Wray [facility] Benjamin, Dr. Koehler Attending Unavaila ble Lavonne, Dr. Koehler Attending Unavaila ble Awa, Dr. Donya Wray [facility] Benjamin, Dr. Koehler Referring Unavaila ble Lavonne, Dr. Koehler Referring Unavaila ble Awa, Dr. Donya Wray [facility] Benjamin, Dr. Koehler Attending Unavaila ble Awa, Dr. Donya Wray [facility] Benjamin, Dr. Koehler Referring Unavaila ble Awa, Dr. Donya [facility], Dr. Koehler Attending Unavaila ble Awa, Dr. Donya Wray [facility] Benjamin, Dr. Koehler Attending Unavaila ble Lavonne, Dr. Koehler Referring Unavaila ble Awa, DO Donya Ashraf Primary Care Provider DO Yogi Michaels Emergency Provider Gaurav simeon [facility], PHYSICIAN Primary Care Provider Unava BHAVIN Dsouza Emergency Provider [phone] MD Amanda Montiel Attending Provider [phone] DO Melissa Singh II Primary Care Provider [phone] DO Mariya Kumari Emergency Provider MD Franklyn Madera Attending Provider MD Phillip Benjamin Other Provider Beny Alvarez Unavailable [phone] DO Yogi Michaels Emergency Provider ReynavaMD Kenyetta Cee Attending Provider DO Melissa Singh II Other Provider MARCELLUS Mcintosh Attending Provider [phone] NO [facility], PHYSICIAN Primary Care Provider Unava MD Beny Cheng Attending Provider [phone] MAXIMILIANO Aguirre Other Provider Awa BARAKAT Donya Andriy Unavailable [facility], [facility] Referring Unavaila ble PARAS, [facility] Attending Unavaila ble PARAS, [facility] Referring Unavaila ble PARAS, [facility] Attending Unavaila ble James, Roula Unavailable DO Melissa Singh II Primary Care Provider DO Jacqui Samayoa Emergency Provider DO Melissa Singh II Primary Care Provider DO Jacqui Samayoa Emergency Provider [phone] DO Melissa Singh II Attending Provider MARCELLUS Dominguez Attending Provider [phone] MAXIMILIANO Lozoya Emergency Provider [phone] DO Melissa Singh II Primary Care Provider GILBERTO AGUIRRE Attending Unav Donya Anton Referring Unavailable ALLYSSA TREJO Attending Unavailable Christofferson, [employer] Roula L Admitting Reyna vailable Christofferson, [employer] DIRECT[employer] SALES Roula L Attending Reyna vailable NONE, XXXX Referring Unavailable DO Melissa Singh Attending Unavailable Stephanieey, DO Melissa Arias Attending Unavailable TAVO HARRIS Attending Unavailable Anastasiamlrubin, DO Melissa Arias Attending Unavailable Anastasiamlrubin, DO Melissa Arias Attending Unavailable Franklyn MADERA Attending Unavailable NONE, XXXX Referring Unavailable Franklyn MADERA Admitting Unavailable Zeinab Galicia Attending Unavailable Christofferson, [employer] SAL[employer] Roula L Admitting Reyna vailable Christofferson, [employer] SAL[employer] Roula L Attending Ryena vailable Christofferson, [employer] SALES Roula L Referring Reyna vailable Christofferson, ARE[employer] DIRECT[employer] SALES Roula L Admitting Reyna vailable Christofferson, [employer] SAL[employer] Roula L Attending Reyna vailable Kilo Williamson Attending Unavailable DO Melissa Singh Referring Unavailable Christofferson, [employer] SAL[employer] Roula L Attending Reyna vailable Christofferson, [employer] DIRECT[employer] SALES Roula L Admitting Reyna vailable NONE, XXXX Referring Unavailable Franklyn MADERA Attending Unavailable NONE, XXXX Referring Unavailable Franklyn MADERA Admitting Unavailable Donya BILLINGS Attending Unavailable Samantha, DO Melissa Arias Attending Unavailable Samantha, DO Melissa Arias Attending Unavailable Samantha, DO Melissa Arias Attending Unavailable DO Melissa Singh Attending Unavailable DO Melissa Singh Attending Unavailable Samantha IIDO Melissa Primary Care Provider Self, Referral Attending Provider Unavailable MD Melissa Coon Primary Care Provider MARCELLUS Mar Attending Provider Camila PELAYO, Cesarrius Lou Attending Unavailable Camila PELAYO, Andrius Carmine Attending Unavailable Camila PELAYO, Andrius Vytcarlos Attending Unavailable Camila PELAYO, Andrius Vytcarlos Attending Unavailable Camila PELAYO, Andrius Julitoytcarlos Attending Unavailable Camila PELAYOWillian Attending Unavailable MD Kenyetta Dove Attending Provider [phone] Melissa Coon MD Primary Care Provider Melissa Singh II Primary Care Unavailable Javad Lozoya Admitting Unavailable Javad Lozoya Attending Unavailable Jacqui Samayoa Admitting Unavailable Jacqui Samayoa Attending Unavailable Melissa Singh II Primary Care Unavailable Samantha AVALOS, Melissa Arias Primary Care Unavailable Samantha AVALOS, Melissa Arias Attending Unavailable Melissa Singh II Admitting Unavailable Radha Mcintosh Admitting Unavailable Radha Mcintosh Attending Unavailable Samantha AVALOS, Melissa Arias Primary Care Unavailable Melissa Singh II Consulting Unavailable Kenyetta Dove Admitting Unavailable Kenyetta Dove Attending Unavailable Melissa Coon Primary Care Unavailable Risalitamara Dalia Admitting Unavailable Ijeoma Marna Attending Unavailable Melissa Coon Primary Care Unavailable Self, Referral Admitting Unavailable Self, Referral Attending Unavailable Melissa Singh II Primary Care Unavailable Samantha AVALOS, Melissa Arias Primary Care Unavailable Brielle Dominguez Admitting Unavailable Brielle Dominguez Attending Unavailable Becky Aguirre Consulting Unavail able Beny Alvarez Admitting UnavailBeny Mahajan Attending UnavailMelissa Holbrook II Primary Care Unavailable MELISSA COON Attending Unavailable KENYETTA DOVE Attending Unavailable KENYETTA DOVE Referring Unavailable MELISSA COON Referring Unavailable Allergies Allergy Classification Reported Allergen(s) Allergy Type Date of Onset Reaction(s) Facility (1 source) Latex; Translations: [Latex] Propensity to adverse reactions (disorder) 7 [facility] (1 source) venlafaxine; Translations: [Effexor] Drug Allergy [facility] Medications Current Medications Medication Drug Class(es) Dates Sig (Normalized) Sig (Original) acetaminophen 500 mg oral tablet (19 sources) Start: 09-20-2022 take 1000 mg by mouth twice daily Acetaminophen Active 1000 MG PO Twice daily September 20, 2022 12:00am Start: 09-20-2022 Acetaminophen (Tylenol Ex Str Rapid Release) 500 mg Tablet Active 1000 MG PO Twice daily September 20, 2022 12:00am Tylenol bid Acti ve acetaminophen 325 mg / HYDROcodone bitartrate 5 mg oral tablet (13 sources) Opioid Agonist Start: 03-29-2023 take 1 tablet by mouth twice daily Hydrocodone-Acetaminophen Active 1 TAB PO Twice daily March 29, 2023 12:00am [place] Active Comment on above: TAKE 1 TABLET BY CHRISTOPHER TH 2 TIMES A DAY NEEDED FOR PAIN Albuterol (4 sources) beta2-Adrenergic Agonist Start: 12-05-2023 Albuterol Sulfate Active 1 INH INHALATION Every 4 hours 6.7 December 05, 2023 12:00am Start: 04-28-2022 take 2 puff(s) by in halation every four hours as needed Albuterol Sulfate [...] mg / clavulanate 125 mg oral tablet (4 sources) Penicillin-class Antibacterial Start: 12-05-2023 take 1 tablet by mouth twice daily Amoxicillin-Pot Clavulanate Active 1 TAB PO Twice daily 20 December 05, 2023 12:00am Aspir-81 (4 sources) Aspir-81 Active B Oyaktor-Woxhyb-IQ (Super Quints B-50) tablet (5 sources) B Pmsmdca-Rtuydl-W A (Super Quints B-50) tablet Take by mouth Active benzonatate 100 mg oral capsule (1 [...] 0 Active Calcium + D Acti ve Calcium Carb-Cholecalciferol (CALCIUM 600 + D PO) (5 sources) Calcium Carb-Cholecalciferol (CALCIUM 600 + D PO) Take by mouth Active calcium carbonate 1250 mg / cholecalciferol 200 unt oral tablet (5 sources) Vitamin D Start: 019 take 1 tablet by mouth twice daily Calcium Carbonate-Vitamin D3 (Os-Nirmal 500 + D3) 500 mg(1,250mg) -200 unit tablet Active 1 TAB PO Twice daily July 18, 2018 1:00am cholecalciferol 0.05 mg oral capsule (20 sources) Vitamin D Start: 023 take 1 capsule by mouth in the morning cholecalciferol (Vitamin D-3) 50 MCG (2000 UT) capsule Take 1 capsule by mouth in the morning. 02/19/2023 Active Start: 02-19-2023 take 1 capsule by mouth once C holecalciferol, Vitamin D3, 50 mcg (2,000 unit) cap Take 1 capsule by mouth every afternoon. 0 02/19/2023 Active Start: 08-13-2022 Cholecalcifero l (vitamin D3) 50 MCG (2000 UT) CAPS capsule Take by mouth daily. 0 08/13/2022 Active Start: 07-18-2018 take 64025 [IU] by m outh every week Cholecalciferol (Vitamin D3) Active 14940 UNIT PO every week July 18, 2018 1:00am take 1 capsule by mo uth once daily Vitamin D3 1.25 MG (06733 UT) Oral Capsule TAKE 1 CAPSULE Daily Quantity: 0 Refills: 0 Ordered: 28-Jul-2022 DO Active Comment on above: Take 1 capsule by mo uth every afternoon. Collagen (5 sources) COLLAGEN PO Take by mouth Active diclofenac sodium 50 mg delayed release oral tablet (5 sources) Nonsteroidal Anti-inflammatory Drug take 1 tablet by mouth in the morning diclofenac (Voltaren) 50 MG EC tablet Take 1 tablet by mouth in the morning and 1 tablet before bedtime. Do not crush, chew, or split.. Active 24 hr dilTIAZem hydrochloride 240 mg extended release oral capsule (19 sources) Calcium Channel Shorty Start: 3 take 240 mg by mouth once daily Diltiazem Hcl Active 240 MG PO Daily March 29, 2023 12:00am dilTIAZem HCl 24 0mg Active Comment on above: Take 1 capsule by mo uth every afternoon. escitalopram 10 mg oral tablet (18 sources) Serotonin Reuptake Inhibitor Start: 3 take 1 tablet by mouth in the morning escitalopram (Lexapro) 10 MG tablet Take 1 tablet by mouth in the morning. 05/02/2023 Active Start: 05-02-2023 take 1 tablet by mouth once es citalopram oxalate (LEXAPRO) 10 mg tablet Take 1 tablet by mouth every afternoon. 0 05/02/2023 Active Start: 03-29-2023 take 2 tablets by mo uth once daily Escitalopram Oxalate (Lexapro) 5 mg Tablet Active 10 MG PO Daily March 29, 2023 12:00am Start: 03-29-2023 take 1 tablet by christopher th once daily Escitalopram Oxalate (Lexapro) 5 mg Tablet Active 5 MG PO Daily March 29, 2023 12:00am Comment on above: Take 1 tablet by christopher th every afternoon. ferrous sulfate 325 mg oral tablet (5 sources) take 1 tablet by mouth at mealtime ferrous sulfate 325 (65 Fe) MG tablet Take 325 mg by mouth in the morning. Take with meals. Active fluconazole 100 mg oral tablet (4 sources) Azole Antifungal Start: 023 take 1 tablet by mouth once daily fluconazole (DIFLUCAN) 100 MG tablet Take 100 mg by mouth daily. for 10 days 0 08/10/2022 Active fluocinonide 0.5 mg/ml topical solution (5 sources) Corticosteroid Start: fluocinonide (Lidex) 0.05 % external solution Apply 1 application topically Daily 01/18/2024 Active guaiFENesin 600 mg oral tablet (4 sources) Start: take 600 mg by mouth twice daily Guaifenesin Active 600 MG PO Twice daily December 05, 2023 12:00am ketoconazole 20 mg/ml medicated shampoo (5 sources) Azole Antifungal Start: ketoconazole (NIZOral) 2 % shampoo Apply 1 application topically 2 (two) times a week 01/18/2024 Active levothyroxine sodium 0.112 mg oral tablet (20 sources) l-Thyroxine Start: 022 take 1 tablet by mouth before mealtime levothyroxine (Synthroid, Levoxyl) 112 MCG tablet Take 112 mcg by mouth in the morning. Take before meals. 04/30/2023 Active Start: 11-26-2021 take 1 tablet [...] in the morning on an empty stomach linaclotide 0.145 mg oral capsule (8 sources) [...] tablet by christopher th once daily liothyronine (Cytomel) 5 MCG tablet Take 5 mcg by mouth Daily Active take 1 tablet by christopher th [...] Active take 1 capsule by mo uth every twenty-four hours as needed lubiprostone (Amitiza) 24 MCG capsule Take 24 mcg by mouth Daily as needed Active take 1 capsule by mo uth once daily at mealtime Amitiza 24 MCG 1 capsule with food and water Orally once a day Active Comment on above: Take 24 mcg by mouth twice daily with meals. Magnesium (20 sources) Start: 07-18-2018 take 400 mg by [...] Active Comment on above: Take by mouth. metFORMIN hydrochloride 500 mg oral tablet (5 sources) Biguanide take 1 tablet by mouth in the morning metFORMIN (Glucophage) 500 MG tablet Take 1 tablet by mouth in the morning and 1 tablet in the evening. Take with meals. Active methylPREDNISolone 4 mg oral tablet (4 sources) Corticosteroid Start: 2023 take 1 tablet by mouth once Methylprednisolone (Medrol (Jeffery)) 4 mg tablets,dose pack Active 0 PO per package directions December 05, 2023 12:00am PO PER PKG DIR for 6 days metroNIDAZOLE 0.01 mg/mg topical gel (6 sources) Nitroimidazole Antimicrobial metroNIDAZOLE (Metrogel) 1 % gel Apply topically Active Comment on above: Apply to affected ar ea. Multi For Her (8 sources) Multi For Her as directed Orally Active Multiple Vitamin (Multi Vitamin Daily) tablet (5 sources) Multiple Vitamin (Multi Vitamin Daily) tablet Take by mouth Active Multiple Vitamin (Multi Vitamin Daily) TABS (4 sources) Multiple Vitamin (Multi Vitamin Daily) TABS Take by mouth. 0 Active Multivitamin (Multiple Vitamins) Tablet (20 sources) Start: 2018 take 1 tablet by mouth once daily Multivitamin (Multiple Vitamins) Tablet Active 1 TAB PO Daily July 18, 2018 1:00am Start: 07-18-2018 take 1 tablet by christopher th once daily Multivitamin (Multiple Vitamins) Tablet Active 1 TAB PO Daily July 18, 2018 12:00am polyethylene glycol 3350 10778 mg powder for oral solution (5 sources) Osmotic Laxative Start: 09-01-2022 take 17 g by mouth once daily Polyethylene Glycol 3350 17 GM/SCOOP 17gm Orally Once a day for 30 days please dispense largest quantity Aug, Active predniSONE 20 mg oral tablet (4 sources) Start: 03-07-2024 predniSONE (Deltasone) 20 MG tablet Indications: Bursitis of other bursa of right hip Take two tablets once a day for 5 days 10 tablet 03/07/2024 Active Start: 03-27-2023 prednisone 10 mg 5 tablets for 2 days, 4 tablets x2 days, then 3 x2 days, 2 x2 days, 1 x2 days Orally as directed for 10 days Feb, Not-Taking/PRN probiotic (1 source) probiotic Active Probiotic Product (PRO-BIOTIC BLEND PO) (4 sources) Probiotic Produc t (PRO-BIOTIC BLEND PO) Take by mouth Active propranolol hydrochloride 20 mg oral tablet (15 sources) beta-Adrenergic Shorty Start: 05-03-2023 take 20 mg by mouth twice daily Propranolol Active 20 MG PO Twice daily July 22, 2023 1:00am take 1 tablet by christopher th every twenty-four hours Propranolol HCl 20 MG 1 tablet Orally Once a day Active Comment on above: TAKE 1 TABLET BY CHRISTOPHER TH 2 TIMES A DAY NEEDED FOR ANXIETY saccharomyces boulardii 250 mg oral capsule (5 sources) take 1 capsule by mouth once daily in the morning saccharomyces boulardii (Florastor) 250 MG capsule Take 250 mg by mouth Daily in the Morning Active Semaglutide,0.25 or 0.5MG/DOS, (Ozempic, 0.25 or 0.5 MG/DOSE,) 2 MG/3ML solution pen-injector (5 sources) Start: 01-24-20 inject 0.25 mg by subcutaneous injection every week, then inject 0.5 mg by subcutaneous injection every week Semaglutide,0.25 or 0.5MG/DOS, (Ozempic, 0.25 or 0.5 MG/DOSE,) 2 MG/3ML solution pen-injector Indications: Type 2 Diabetes Mellitus Inject 0.25 mg under the skin 1 (one) time per week for 28 days, THEN 0.5 mg 1 (one) time per week for 14 days. 3 mL 01/24/2024 Active Start: 01-24-2024 End: 03-05-2024 inject 0.25 mg by subcutaneous injection every week, then inject 0.5 mg by subcutaneous injection every week Semaglutide,0.25 or 0.5MG/DOS, (Ozempic, 0.25 or 0.5 MG/DOSE,) 2 MG/3ML solution pen-injector Indications: Type 2 Diabetes Mellitus Inject 0.25 mg under the skin 1 (one) time per week for 28 days, THEN 0.5 mg 1 (one) time per week for 14 days. 3 mL 01/24/2024 03/05/2024 Active Semaglutide-Weight Management (Wegovy) 0.25 MG/0.5ML solution auto-injector (5 sources) Start: 01-31-2024 inject 0.25 mg by subcutaneous injection every week Semaglutide-Weight Management (Wegovy) 0.25 MG/0.5ML solution auto-injector Indications: BMI 40.0-44.9, adult (CMS/HCC) Inject 0.25 mg under the skin 1 (one) time per week 0.5 mL 3 01/31/2024 Active 1 ml triamcinolone acetonide 40 mg/ml prefilled syringe (20 sources) Corticosteroid Start: 03-07-2024 triamcinolone acetonide (Kenalog-40) injection 40 mg Start: 03-27-2023 Kenalog-40 Feb, 60 mg Start: 10-19-2018 Kenalog -40 mg September, 40 mg Start: 04-24-2018 Kenalog -40 mg Mar, 40 mg Start: 01-18-2018 Kenalog -40 mg Dec, 40 mg Start: 09-23-2016 Kenalog -40 mg Aug, Trulance 3 MG (1 source) Start: 05-12-2022 take 1 tablet by christopher th once daily Trulance 3 MG 1 tablet Orally Once a day for 90 days Apr, Active Turmeric extract (6 sources) Turmeric (QC STU PAULIE COMPLEX PO) Take by mouth Active Turmeric Active Completed/Discontinued Medications Medication Drug Class(es) Dates Sig (Normalized) Sig (Original) acetaminophen 325 mg / oxyCODONE hydrochloride 5 mg oral tablet (6 sources) Opioid Agonist Start: 09-20-2023 End: 12-05-2023 [...] bedtime. ascorbic acid 1000 mg oral tablet (20 sources) Vitamin C Start: 9 End: 3 take 1 tablet by mouth once daily in the morning Ascorbic Acid (Vitamin C) (Vitamin C) 1,000 mg Tablet Discontinued 1000 MG PO Every morning July 18, 2018 1:00am September 20, 2022 7:23pm aspirin 81 mg chewable tablet (9 sources) Platelet Aggregation Inhibitor, Nonsteroidal Anti-inflammatory Drug [...] sources) gamma-Aminobutyric Acid-ergic Agonist Start: 3 End: 4 take 10 mg by mouth once daily [...] Baclofen Active biotin 10 mg oral capsule (20 sources) Start: 07-18-2018 End: 09-20-2022 take 70842 ug by mouth once daily Biotin Discontinued 57474 MCG PO Daily July 18, 2018 1:00am September 20, 2022 7:23pm 24 hr buPROPion hydrochloride 300 mg extended release oral tablet (20 sources) Aminoketone Start: 10-21-2017 End: 09-20-2022 take [...] + D3) 500 mg(1,250mg) -200 unit tablet (15 sources) Start: 07-18-2018 End: 09-20-2022 take 1 [...] Active Comment on above: Take by mouth. chondroitin sulfates 400 mg / glucosamine hydrochloride 500 mg oral tablet (1 source) take 1 tablet by mouth three times daily Glucosamine-Chondroitin 500-400 mg tablet Take 1 tablet by mouth three times daily. 0 Active Comment on above: Take 1 tablet by christopher th three times daily. cloNIDine hydrochloride 0.1 mg oral tablet (15 sources) Central alpha-2 Adrenergic Agonist Start: 2022 End: 2022 take 0.1 mg by mouth once daily Clonidine Hcl Discontinued 0.1 MG PO Daily December 20, 2022 4:03pm March 29, 2023 8:37am CYANOCOBALAMIN/COBAMAMIDE (B12 SUBLINGUAL) (1 source) CYANOCOBALAMIN/C OBAMAMI DE (B12 SUBLINGUAL) Dissolve under the tongue. 0 Active Comment on above: Dissolve under the t ongue. doxycycline hyclate 100 mg oral capsule (4 sources) Tetracycline-class Drug Start: 2022 take 1 capsule by mouth every twelve hours Doxycycline Hyclate 100 MG 1 capsule Orally Twice a day for 10 day(s) September, Not-Taking/PRN estrogens, conjugated (alf) 0.3 mg / medroxyPROGESTERone acetate 1.5 mg oral tablet (1 source) Progestin, Estrogen take 1 tablet by mouth once daily Conj Estrog-Medroxyprogest Tyrel 0.3-1.5 mg per tablet Take 1 tablet by mouth once daily. 0 Active Comment on above: Take 1 tablet by christopher once daily. FE FUMARATE/CA CARB/VITAMIN D3 ([id number] FUMARATE ORAL) (1 source) FE FUMARATE/CA CARB/VITAMIN D3 ([id number] FUMARATE ORAL) Take by mouth. 0 Active Comment on above: Take by mouth. FOLIC ACID, BULK, MISC (1 source) FOLIC ACID, BULK , MISC ibuprofen 800 mg oral tablet (20 sources) Nonsteroidal Anti-inflammatory Drug Start: 2018 End: 2022 take 800 mg by mouth every eight hours Ibuprofen Discontinued 800 MG PO Q8H December 15, 2018 12:00am September 20, 2022 7:23pm lactobacillus acidophilus [id number] unt / pectin 10 mg oral capsule (1 source) acidophilus-pect in, citrus (ACIDOPHILUS PROBIOTIC) 100 million-10 cell-mg cap Take by mouth. 0 Active Comment on above: Take by mouth. magnesium oxide 400 mg oral tablet (20 sources) Start: 2022 take 1 tablet by mouth twice daily Magnesium Oxide 400 MG Oral Tablet TAKE 1 TABLET TWICE DAILY. Quantity: 180 Refills: 3 Ordered: 04-Jun-2022 Phillip Benjamin MD Start : 04-Jun-2022 Active Start: 06-04-2022 magnesium oxid e (MAG-OX) 400 mg (241.3 mg magnesium) tablet Take by mouth every 12 hours. 0 06/04/2022 Active Start: 06-04-2022 magnesium oxid e (MAG-OX) [...] DO Active meloxicam 15 mg oral tablet (20 sources) Nonsteroidal Anti-inflammatory Drug Start: 9 End: [...] 0 06/04/2022 Active [facility] Metoprolol Succinate ER 50 MG [...] on above: Take 1 capsule by [facility] once daily. mupirocin 0.02 mg/mg topical ointment (20 sources) RNA Synthetase Inhibitor Antibacterial Start: 12-03-19 End: 12-16-19 Mupirocin Discontinued 1 APPLIC TOPICAL Twice daily 15 December 02, 2018 12:00am December 15, 2018 5:08pm naproxen 500 mg oral tablet (10 sources) Nonsteroidal Anti-inflammatory Drug Start: 09-20-19 End: 12-05-19 take 1 tablet by mouth twice daily Naproxen (Naprosyn) 500 mg tablet Discontinued 500 MG PO Twice daily October 04, 2023 6:31am December 05, 2023 11:42am omeprazole 20 mg delayed release oral capsule (20 sources) Proton Pump Inhibitor Start: 04-11-20 18 End: 08-02-19 19 take 1 tablet by mouth once daily Omeprazole Discontinued 1 TAB PO Daily April 11, 2018 1:00am August 01, 2018 3:16pm oseltamivir 75 mg oral capsule (8 sources) Neuraminidase Inhibitor Start: 07-22-19 24 End: 09-20-19 24 take 1 capsule by mouth every twelve hours Oseltamivir (Tamiflu) 75 mg capsule Discontinued 75 MG PO Q12H 10 5 July 22, 2023 1:00am September 20, 2023 11:31am plecanatide 3 mg oral tablet (7 sources) Start: 05-12-20 take 1 tablet by mouth every twenty-four hours Trulance 3 MG 1 tablet Orally Once a day for 90 days Apr, Not-Taking/PRN PROGESTERONE, BULK, MISC (1 source) PROGESTERONE, [...] 2022 7:24pm take 1 capsule by mo [facility] every twenty-four hours Restoril 15 MG 1 [...] on above: TAKE 1 CAPSULE BY MO UT ONCE A DAY (AT BEDTIME) NEEDED FOR SLEEP 30 DAY SUPPLY thyroid (alf) 60 mg oral tablet (1 source) thyroid, [...] as needed Orally Once a day Not-Taking/PRN [employer], Bulk, (VERSABASEA) crea (1 [...] Classification Problem Date Documented Da te Episodic/Chronic Administrative/social admission (2 sources) Patient encounter status; Translations: [Dietary counseling and surveillance] 02-28-2024 Episodic Anxiety disorders (13 sources) Anxiety; Translations: [Anxiety state, unspecified] Onset: 3 01-24-2024 Chronic Blindness and vision defects (14 sources) Diplopia; Translations: [Diplopia] Episodic Cardiac dysrhythmias (15 sources) Multiple premature ventricular complexes; Translations: [Other premature beats] Onset: 3 Chronic Cardiac dysrhythmias (20 sources) Palpitations; Translations: [Palpitations] Onset: 3 12-20-2022 Episodic Chronic obstructive pulmonary disease and bronchiectasis (4 sources) Bronchitis, not specified as acute or chronic; Translations: [Bronchitis, not specified as acute or chronic] 12-05-2023 Episodic Complications of surgical procedures or medical care (3 sources) Postoperative hypothyroidism; Translations: [Postprocedural hypothyroidism] Onset: 4 02-28-2024 Chronic Complications of surgical procedures or medical care (20 sources) Wound dehiscence; Translations: [Disruption of external operation (surgical) wound, not elsewhere classified, initial encounter] 12-02-2018 Episodic Conditions associated with dizziness or vertigo (15 sources) Lightheadedness; Translations: [Dizziness and giddiness] 12-20-2022 Episodic Essential hypertension (20 sources) Hypertensive disorder; Translations: [Essential (primary) hypertension] Onset: 4 12-28-2022 Chronic Gastritis and duodenitis (13 sources) Gastritis; Translations: [Unspecified chronic gastritis without bleeding] 10-03-2023 Chronic Gastrointestinal hemorrhage (1 source) Melena Episodic Genitourinary symptoms and ill-defined conditions (5 sources) Mixed urinary incontinence; Translations: [Mixed incontinence] Onset: 4 01-24-2024 Chronic Genitourinary symptoms and ill-defined conditions (5 sources) Retention of urine; Translations: [Retention of urine, unspecified] Onset: 4 01-24-2024 Episodic Headache; including migraine (14 sources) Headache; Translations: [Headache] 12-30-2022 Episodic Hypertension with complications and secondary hypertension (19 sources) Hypertensive urgency ; Translations: [Hypertensive urgency] 12-30-2022 Chronic Immunizations and screening for infectious disease (1 source) Other specified abnormal immunological findings in serum; Translations: [Positive WILL (antinuclear antibody)] Onset: 3 Episodic Influenza (8 sources) Influenza; Translations: [Influenza due to unidentified influenza virus with other respiratory manifestations] 07-22-2023 Episodic Mood disorders (7 sources) Depressive disorder; Translations: [Depression] Onset: 4 01-18-2014 Chronic Nervous system congenital anomalies (7 sources) Congenital anomaly of optic nerve; 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, spinal cord, 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 Nonmalignant breast conditions (13 sources) Large breast; Translations: [Hypertrophy of breast] 10-03-2023 Episodic Nutritional deficiencies (10 sources) Vitamin D deficiency; Translations: [Unspecified vitamin D deficiency] Onset: 4 01-24-2024 Chronic Open wounds of extremities (20 sources) Cat bite - wound; Translations: [Open bite of unspecified finger without damage to nail, initial encounter] 12-02-2018 Episodic Osteoarthritis (20 sources) Arthritis; Translations: [Osteoarthritis of hip] Onset: 4 01-18-2014 Chronic Other connective tissue disease (7 sources) Fibromyalgia; Translations: [Fibromyalgia] Onset: 4 01-18-2014 Episodic Other connective tissue disease (7 sources) H/O: arthritis; Translations: [Personal history of arthritis] Episodic Other connective tissue disease (7 sources) H/O: musculoskeletal disease; Translations: [Personal history of other musculoskeletal disorders] Episodic Other connective tissue disease (12 sources) Pain in calf; Translations: [Pain in unspecified lower leg] 01-24-2023 Episodic Other connective tissue disease (5 sources) Disorder of rotator cuff; Translations: [Unspecified rotator cuff tear or rupture of right shoulder, not specified as traumatic] 10-03-2023 Episodic Other connective tissue disease (2 sources) Unspecified rotator cuff tear or rupture of right shoulder, not specified as traumatic; Translations: [Disorders of bursae and tendons in shoulder region, unspecified] 10-03-2023 Episodic Other connective tissue disease (2 sources) Bursitis of right hip; Translations: [Other bursitis of hip, right hip] 03-07-2024 Episodic Other eye disorders (7 sources) Hypertropia of right eye; Translations: [Hypertropia] Episodic Other eye disorders (12 sources) Pain in eye; Translations: [Ocular pain, unspecified eye] 01-24-2023 Episodic Other gastrointestinal disorders (2 sources) Irritable bowel syndrome; Translations: [Irritable bowel syndrome without diarrhea] 01-18-2014 Chronic Other gastrointestinal disorders (17 sources) Irritable bowel syndrome characterized by constipation; Translations: [Irritable bowel syndrome with constipation] Onset: 4 10-03-2023 Chronic Other gastrointestinal disorders (2 sources) Irritable bowel syndrome with constipation Chronic Other gastrointestinal disorders (8 sources) Constipation - functional; Translations: [Other constipation] Episodic Other gastrointestinal disorders (8 sources) Swollen abdomen; Translations: [Abdominal distension (gaseous)] Episodic Other gastrointestinal disorders (7 sources) History of gastritis; Translations: [Personal history of other diseases of digestive system] Episodic Other gastrointestinal disorders (9 sources) Constipation; Translations: [Constipation, unspecified] 10-03-2023 Episodic Other gastrointestinal disorders (1 source) Abdominal distension (gaseous) Episodic Other gastrointestinal disorders (1 source) Constipation, unspecified Episodic Other gastrointestinal disorders (5 sources) Abdominal bloating; Translations: [Abdominal distension (gaseous)] 10-03-2023 Episodic Other hematologic conditions (5 sources) History of anemia; Translations: [Personal history of diseases of the blood and blood-forming organs and certain disorders involving the immune mechanism] Onset: 4 01-24-2024 Episodic Other lower respiratory disease (17 sources) Dyspnea; Translations: [Shortness of breath] 01-24-2023 Episodic Other nervous system disorders (7 sources) Benign intracranial hypertension; Translations: [Benign intracranial hypertension] Chronic Other nervous system disorders (1 source) Other chronic pain; Translations: [OTHER CHRONIC PAIN] Onset: 2 Chronic Other non-traumatic joint disorders (20 sources) Shoulder pain; Translations: [Pain in unspecified shoulder] 11-19-2019 Episodic Other non-traumatic joint disorders (6 sources) Shoulder joint pain; Translations: [Pain in right shoulder] 09-20-2023 Episodic Other nutritional; endocrine; and metabolic disorders (7 sources) Body mass index 40+ - severely obese; Translations: [Morbid obesity] Chronic Other nutritional; endocrine; and metabolic disorders (1 source) Obesity, unspecified; Translations: [OBESITY UNSPECIFIED] Onset: 2 Chronic Other nutritional; endocrine; and metabolic disorders (15 sources) Hypomagnesemia; Translations: [Hypomagnesemia] 12-20-2022 Chronic Other nutritional; endocrine; and metabolic disorders (2 sources) Severe obesity; Translations: [Class 3 severe obesity without serious comorbidity with body mass index (BMI) of 40.0 to 44.9 in adult, unspecified obesity type ([facility])] 02-28-2024 Chronic Other nutritional; endocrine; and metabolic disorders (7 sources) History of Graves' disease; Translations: [Personal history of other endocrine, metabolic, and immunity disorders] Episodic Other screening for suspected conditions (not mental disorders or infectious disease) (1 source) Encounter for screening mammogram for malignant neoplasm of breast; Translations: [Encounter for screening mammogram for malignant neoplasm of breast] Onset: 4 Episodic Other skin disorders (1 source) Rash and other nonspecific skin eruption Episodic Other skin disorders (5 sources) Non-scarring alopecia; Translations: [Nonscarring hair loss, unspecified] Onset: 4 02-20-2024 Episodic Other upper respiratory infections (7 sources) Acute pharyngitis, unspecified; Translations: [Streptococcal pharyngitis] Episodic Phlebitis; thrombophlebitis and thromboembolism (20 sources) Phlebitis; Translations: [Phlebitis and thrombophlebitis of unspecified site] 12-15-2018 Episodic Residual codes; unclassified (15 sources) Chronic pain; Translations: [Other chronic pain] Onset: 4 01-18-2014 Chronic Residual codes; unclassified (20 sources) Peripheral edema; Translations: [Edema, unspecified] 11-19-2019 Episodic Residual codes; unclassified (5 sources) History of supracervical hysterectomy; Translations: [Acquired absence of uterus with remaining cervical stump] Onset: 4 02-20-2024 Episodic Screening and history of mental health and substance abuse codes (14 sources) Ex-smoker; Translations: [Personal history of tobacco use] Episodic Comment on above: quit 01/28/22; Spondylosis; intervertebral disc disorders; other back problems (20 sources) Solitary sacroiliitis; Translations: [Sacroiliitis, not elsewhere classified] Onset: 2 Chronic Spondylosis; intervertebral disc disorders; other back problems (20 sources) Neck pain; Translations: [Backache] Onset: 2 01-18-2014 Episodic Sprains and strains (20 sources) Sprain of knee; Translations: [Sprain of unspecified site of right knee, initial encounter] 10-03-2023 Episodic Thyroid disorders (19 sources) Hypothyroidism; Translations: [Unspecified acquired hypothyroidism] Onset: 4 01-18-2014 Chronic Unclassified (1 source) LOW BACK PAIN, UNSPECIFIED; Translations: [LOW BACK PAIN, UNSPECIFIED] Onset: 2 Past or Other Problems Problem Classification Problem Date Documented Da te Episodic/Chronic Abdominal pain (20 sources) Left upper quadrant pain; Translations: [Left upper quadrant pain] Onset: 03-29-2023 06-21-2022 Episodic Deficiency and other anemia (1 source) Anemia, unspecified; Translations: [Anemia, unspecified] Onset: 07-28-2023 Episodic Fever of unknown origin (1 source) Fever, unspecified; Translations: [Fever, unspecified] Onset: 07-22-2023 Episodic Nonspecific chest pain (20 sources) Chest pain; Translations: [Chest pain, unspecified] Onset: 07-22-2023 11-05-2022 Episodic Other aftercare (1 source) Other usp (current) drug therapy; Translations: [Other moth exterminator (current) drug therapy] Onset: 03-17-2023 Episodic Other connective tissue disease (4 sources) Other muscle spasm; Translations: [OTHER MUSCLE SPASM] Onset: 01-06-2022 Episodic Other lower respiratory disease (1 source) Shortness of breath; Translations: [Shortness of breath] Onset: 07-22-2023 Episodic Other non-traumatic joint disorders (1 source) Pain in right shoulder; Translations: [Pain in right shoulder] Onset: 09-20-2023 Episodic Unclassified (2 sources) Cough R05.9 Viral infection (2 sources) COVID-19 Results Test Name Value Interpretation Reference Range Facil ity Thyrotropin [Units/volume] i n Serum or PlasmaOrdered By: Kenyetta Dove on 02-21-2024 TSH Qn 4.01 m[IU]/L Normal 0.45-5.33 [facility] Comment on above: Result Comment: PERF ORMED BY: [facility] [address] [place] [address]END[address] WENDY CLARK M.D. Performed By: #### T 3F, TSH3, T4F #### [facility] [address] [place] [address] Thyroxine (T4) free [Mass/vo lume] in Serum or PlasmaOrdered By: Kenyetta Dove on 02-21-2024 Free T4 [Mass/Vol] 1.10 ng/dL Normal 0.61-1.12 [facility] Comment on above: Performed By: #### T 3F, TSH3, T4F #### [place] [address] [place] Triiodothyronine (T3) Freeon 02-21-2024 Triiodothyronine (T3) Free 3.20 pg/mL Normal 2.50-3.90 [facility] Comment on above: Result Comment: PERF ORMED BY: [place] [id number] WENDY CLARK M.D. Performed By: #### T 3F, TSH3, T4F #### [address] Triiodothyronine (T3) Free [ Mass/volume] in Serum or PlasmaOrdered By: Kenyetta Dove on 02-21-2024 Free T3 [Mass/Vol] 3.20 pg/mL 2.50-3.90 [facility] Alanine aminotransferase [En zymatic activity/volume] in Serum or PlasmaOrdered By: Dalia Mar on 02-01-2024 ALT [Catalytic activity/Vol] 12 U/L Normal 7-52 [facility] Comment on above: Performed By: #### T 3F, TSH3, T4F #### [facility] [address] [place] [address] [place] Albumin [Mass/volume] in Ser um or Plasma by Bromocresol green (BCG) dye binding methoOrdered By: Dalia Mar on 02-01-2024 Albumin BCG dye [Mass/Vol] 3.8 g/dL 3.5-5.7 [facility] Alkaline phosphatase [Enzyma tic activity/volume] in Serum or PlasmaOrdered By: Dalia Mar on 02-01-2024 ALP [Catalytic activity/Vol] 52 U/L Normal 34-104 [facility] Comment on above: Performed By: #### T 3F, TSH, T4F #### [facility] [address] [place] [address] Aspartate aminotransferase [ Enzymatic activity/volume] in Serum or PlasmaOrdered By: Dalia Mar on 02-01-2024 AST [Catalytic activity/Vol] 11 U/L Low 13-39 [facility] Comment on above: Performed By: #### T 3F, TSH, T4F #### [facility] [address] [place] [address] Automated basophil %Ordered By: Dalia Mar on 02-01-2024 Basophils/100 WBC (Bld) 0.5 % Normal . [facility] Comment on above: Performed By: #### T 3F, , T4F #### [address] Automated basophil countOrde red By: Dalia Mar on 02-01-2024 Basophils (Bld) [#/Vol] 0.0 10*3/uL Normal 0.0-0.2 [facility] Comment on above: Result Comment: PERF ORMED BY: [place] [address] WENDY CLARK M.D. Performed By: #### T 3F, , T4F #### [address] Automated blood monocyte cou ntOrdered By: Dalia Mar on 02-01-2024 Monocytes (Bld) [#/Vol] 0.4 10*3/uL Normal 0.0-0.8 [facility] Comment on above: Performed By: #### T 3F, TSH, T4F #### [address] Automated eosinophil %Ordere d By: Dalia Mar on 02-01-2024 Eosinophils/100 WBC (Bld) 1.3 % Normal . [facility] Comment on above: Performed By: #### T 3F, TSH3, T4F #### [address] Automated eosinophil countOr dered By: Dalia Mar on 02-01-2024 Eosinophils (Bld) [#/Vol] 0.1 10*3/uL Normal 0.0-0.45 [facility] Comment on above: Performed By: #### T 3F, TSH3, T4F #### [address] Automated monocyte %Ordered By: Dalia Mar on 02-01-2024 Monocytes/100 WBC (Bld) 4.8 % Normal . [facility] Comment on above: Performed By: #### T 3F, TSH3, T4F #### [address] Automated neutrophil %Ordere d By: Dalia Mar on 02-01-2024 Neutrophils/100 WBC (Bld) 65.3 % Normal . [facility] Comment on above: Performed By: #### T 3F, TSH3, T4F #### [address] Bilirubin Test strip Ql (U)O rdered By: Dalia Mar on 02-01-2024 Bilirubin Ql (U) Negative Negative [facility] Bilirubin.total [Mass/volume ] in Serum or PlasmaOrdered By: Dalia Mar on 02-01-2024 Bilirubin [Mass/Vol] 0.5 mg/dL Normal 0.3-1.0 [facility] Comment on above: Performed By: #### T 3F, TSH3, T4F #### [address] Calcium [Mass/volume] in Ser um or PlasmaOrdered By: Dalia Mar on 02-01-2024 Calcium [Mass/Vol] 8.5 mg/dL Low 8.6-10.3 [facility] Comment on above: Performed By: #### T 3F, TSH3, T4F #### [facility] [address] [place] [address] [place] Carbon dioxide, total [Moles /volume] in Serum or PlasmaOrdered By: Dalia Mar on 02-01-2024 CO2 [Moles/Vol] 27.8 mmol/L Normal 21.0-31.0 [facility] Comment on above: Performed By: #### T 3F, TSH3, T4F #### [facility] [address] [place] [address] [place] Chloride [Moles/volume] in S zakia or PlasmaOrdered By: Dalia Mar on 02-01-2024 Chloride [Moles/Vol] 104 mmol/L Normal 98-107 [facility] Comment on above: Performed By: #### T 3F, TSH3, T4F #### [facility] [address] [place] [address] [place] Cholesterol [Mass/volume] in Serum or PlasmaOrdered By: Dalia Mar on 02-01-2024 Cholesterol [Mass/Vol] 163 mg/dL Normal 140-200 [facility] Comment on above: Chol less than 200 m g/dl low riskChol 201-239 mg/dl borderline riskChol 240 mg/dl and greater high risk Result Comment: Chol less than 200 mg/dl low risk Chol 201-239 mg/dl borderline risk Chol 240 mg/dl and greater high risk Performed By: #### T 3F, TSH3, T4F #### [facility] [address] [place] [id number] [place] Cholesterol in LDL Calc [Mas s/Vol]Ordered By: Dalia Mar on 02-01-2024 Cholesterol in LDL [Mass/Vol] 88 mg/dL 0-100 [facility] Comment on above: LDL ATP III CLASSIFI CATIONLDL less than 100 mg/dL OptimalLDL 100-129 mg/dL Near or above optimalLDL 130-159 mg/dL Borderline highLDL 160-189 mg/dL HighLDL greater than 189 mg/dL Very high Cholesterol in VLDL Calc [Ma ss/Vol]Ordered By: Dalia Mar on 02-01-2024 Cholesterol in VLDL [Mass/Vol] 35 mg/dL [facility] Color of Urine by AutoOrdere d By: Dalia Mar on 02-01-2024 Color (U) Light-yellow Normal Yellow [facility] Comment on above: Order Comment: Name Collection Type:: Clean-Voided Midstream Performed By: #### T 3F, TSH3, T4F #### [address] Complete Blood Count Auto Di ffon 02-01-2024 Mean Corpuscular HGB Conc 34.0 g/dL Normal 32.0-35.0 [facility] Comment on above: Performed By: #### T 3F, TSH3, T4F #### [address] NRBC% 0.1 /100{WBC} Normal 0-0.5 [facility] Comment on above: Performed By: #### T 3F, TSH3, T4F #### [address] Comprehensive Metabolic Pane soniya 02-01-2024 Albumin [Mass/Vol] 3.8 g/dL Normal 3.5-5.7 [facility] Comment on above: Performed By: #### T 3F, TSH3, T4F #### [place] [address] [place] GFR/1.73 sq M.predicted MDRD (S/P/Bld) [Vol rate/Area] mL/min/{1.73_m2} Normal [facility] Comment on above: Performed By: #### T 3F, TSH3, T4F #### [place] [address] [place] Creatinine [Mass/volume] in Serum or PlasmaOrdered By: Dalia Mar on 02-01-2024 Creatinine [Mass/Vol] 0.50 mg/dL Low 0.60-1.20 [facility] Comment on above: Performed By: #### T 3F, TSH3, T4F #### [place] [address] [place] Creatinine [Mass/volume] in UrineOrdered By: Dalia Mar on 02-01-2024 Creatinine (U) [Mass/Vol] 74.00 mg/dL [facility] Comment on above: No reference range e stablished Erythrocyte distribution wid th [Ratio] by Automated countOrdered By: Dalia Mar on 02-01-2024 Erythrocyte distribution width (RBC) [Ratio] 14.6 % Normal 11.9-15.3 [facility] Comment on above: Performed By: #### T 3F, TSH3, T4F #### [facility] [address] [place] [id number] [place] Erythrocytes [#/volume] in B lood by Automated countOrdered By: Dalia Mar on 02-01-2024 RBC (Bld) [#/Vol] 4.34 10*6/uL Normal 3.60-5.00 [facility] Comment on above: Performed By: #### T 3F, TSH3, T4F #### [facility] [address] [place] [id number] [place] Ferritin [Mass/volume] in Se rum or PlasmaOrdered By: Dalia Mar on 02-01-2024 Ferritin [Mass/Vol] 52.8 ng/mL Normal 11.0-306.8 [facility] Comment on above: Performed By: #### T 3F, TSH3, T4F #### [facility] [address] [place] [id number] [place] Glucose [Mass/volume] in Ser um or PlasmaOrdered By: Dalia Mar on 02-01-2024 Glucose [Mass/Vol] 108 mg/dL High 70-100 [facility] Comment on above: ADA recommended refe rence rangeRandom Glucose Reference Range is dependent on time and content of last meal. Glucose of more than 200 mg/dL in a nonstressed, ambulatory subject supports the diagnosis of Diabetes Mellitus. Result Comment: [place] om Glucose Reference Range is dependent on time and content of last meal. Glucose of more than 200 mg/dL in a nonstressed, ambulatory subject supports the diagnosis of Diabetes Mellitus. ADA recommended reference range Performed By: #### T 3F, TSH3, T4F #### [facility] [address] [place] [address] [place] Glucose [Mass/volume] in Uri ne by Test stripOrdered By: Dalia Mar on 02-01-2024 Glucose Test strip (U) [Mass/Vol] Normal mg/dL Normal [facility] Hematocrit [Volume Fraction] of Blood by Automated countOrdered By: Dalia Mar on 02-01-2024 Hematocrit (Bld) [Volume fraction] 39.2 % Normal 34.0-46.4 [facility] Comment on above: Performed By: #### T 3F, TSH3, T4F #### [facility] [address] [place] [address] Hemoglobin Test strip Ql (U) Ordered By: Dalia Mar on 02-01-2024 Hemoglobin Ql (U) Negative Negative [facility] Hemoglobin [Mass/volume] in BloodOrdered By: Dalia Mar on 02-01-2024 Hemoglobin (Bld) [Mass/Vol] 13.3 g/dL Normal 11.8-15.4 [facility] Comment on above: Performed By: #### T 3F, TSH3, T4F #### [address] Iron [Mass/volume] in Serum or PlasmaOrdered By: Dalia Mar on 02-01-2024 Iron [Mass/Vol] 88 ug/dL Normal 50-212 [facility] Comment on above: Performed By: #### T 3F, TSH3, T4F #### [facility] [address] [place] [address] Iron and TIBC Profileon % Iron Saturation 26.4 % Normal 20-50 [facility] Comment on above: Performed By: #### T 3F, TSH3, T4F #### [facility] [address] [place] [address] Total Iron Binding Capacity 333 ug/dL Normal 255-450 [facility] Comment on above: Performed By: #### T 3F, TSH3, T4F #### [facility] [address] [place] [address] Iron binding capacity [Mass/ volume] in Serum or PlasmaOrdered By: Dalia Mar on 02-01-2024 Iron binding capacity [Mass/Vol] 333 ug/dL 255-450 [facility] Iron saturation [Mass Fracti on] in Serum or PlasmaOrdered By: Dalia Mar on 02-01-2024 Iron saturation [Mass fraction] 26.4 % 20-50 [facility] Ketones [Presence] in Urine by Test stripOrdered By: Dalia Mar on 02-01-2024 Ketones Ql (U) Negative Normal Negative [facility] Comment on above: Order Comment: Name Collection Type:: Clean-Voided Midstream Performed By: #### T 3F, TSH3, T4F #### [facility] [address] Leukocyte esterase [Presence ] in Urine by Test stripOrdered By: Dalia Mar on 02-01-2024 Leukocyte esterase Test strip Ql (U) Negative Normal Negative [facility] Comment on above: Order Comment: Name Collection Type:: Clean-Voided Midstream Performed By: #### T 3F, TSH3, T4F #### [facility] [address] [place] [id number] [facility] Leukocytes [#/volume] correc emily for nucleated erythrocytes in Blood by Automated counOrdered By: Dalia Mar on 02-01-2024 WBC corrected for nucl RBC Auto (Bld) [#/Vol] 9.2 10*3/uL 3.8-11.6 [facility] Leukocytes [#/volume] in Blo od by Automated countOrdered By: Dalia Mar on 02-01-2024 WBC (Bld) [#/Vol] 9.2 10*3/uL Normal 3.8-11.6 [facility] Comment on above: Performed By: #### T 3F, TSH3, T4F #### [facility] [address] [place] [id number] [place] Lipid Panelon 02-01-2024 LDL Cholesterol,Calculat ed 88 mg/dL Normal 0-100 [facility] Comment on above: Result Comment: LDL ATP III CLASSIFICATION LDL less than 100 mg/dL Optimal LDL 100-129 mg/dL Near or above optimal LDL 130-159 mg/dL Borderline high LDL 160-189 mg/dL High LDL greater than 189 mg/dL Very high Performed By: #### T 3F, TSH3, T4F #### [address] Triglyceride w/Reflex 176 mg/dL High 0-149 [facility] Comment on above: Result Comment: TRIG ATP III CLASSIFICATION TRIG less than 150 mg/dL Normal TRIG 150-199 mg/dL Borderline high TRIG 200-500 mg/dL High TRIG greater than 500 mg/dL Very high Standard traceable to the Center for Disease Conrtrol and Prevention (CDC) test method. Performed By: #### T 3F, TSH3, T4F #### [address] VLDL CHOLESTEROL 35 mg/dL Normal [facility] Comment on above: Performed By: #### T 3F, TSH3, T4F #### [address] Lymphocytes [#/volume] in Bl ood by Automated countOrdered By: Dalia Mar on 02-01-2024 Lymphocytes (Bld) [#/Vol] 2.6 10*3/uL Normal 1.00-4.8 [facility] Comment on above: Performed By: #### T 3F, TSH3, T4F #### [address] Lymphocytes/100 leukocytes i n Blood by Automated countOrdered By: Dalia Mar on 02-01-2024 Lymphocytes/100 WBC (Bld) 28.1 % Normal . [facility] Comment on above: Performed By: #### T 3F, TSH3, T4F #### [place] [address] [place] MCH [Entitic mass] by Automa emily countOrdered By: Dalia Mar on 02-01-2024 MCH (RBC) [Entitic mass] 30.7 pg Normal 24.7-34.3 [facility] Comment on above: Performed By: #### T 3F, TSH3, T4F #### [address] MCHC Auto (RBC) [Mass/Vol]Or dered By: Dalia Mar on 02-01-2024 MCHC (RBC) [Mass/Vol] 34.0 g/dL 32.0-35.0 [facility] MCV [Entitic volume] by Auto mated countOrdered By: Dalia Mar on 02-01-2024 MCV (RBC) [Entitic vol] 90.1 fL Normal 80-100 [facility] Comment on above: Performed By: #### T 3F, TSH3, T4F #### [address] MicroAlb Creat Ratio,Uon Creatinine, Urine (Random) 74.00 mg/dL Normal [facility] Comment on above: Result Comment: No r eference range established Performed By: #### T 3F, TSH3, T4F #### [address] Microalbumin/Creatin ine Ratio Not performed Normal 0.0-30.0 [facility] Comment on above: Result Comment: PERF ORMED BY: [place] [address] WENDY CLARK M.D. Performed By: #### T 3F, TSH3, T4F #### [address] Microalbumin [Mass/volume] i n UrineOrdered By: Dalia Mar on 02-01-2024 Albumin DL <= 20 mg/L (U) [Mass/Vol] mg/dL Normal 0.0-1.8 [facility] Comment on above: Performed By: #### T 3F, TSH3, T4F #### [place] [address] [place] Neutrophils [#/volume] in Bl ood by Automated countOrdered By: Dalia Mar on 02-01-2024 Neutrophils (Bld) [#/Vol] 6.0 10*3/uL Normal 1.8-7.7 [facility] Comment on above: Performed By: #### T 3F, TSH3, T4F #### [facility] [address] Nitrite Test strip Ql (U)Ord ered By: Dalia Mar on 02-01-2024 Nitrite Ql (U) Negative Negative [facility] No Panel InformationOrdered By: Dalia Mar on 02-01-2024 Estimated GFR (CKD-EPI) > 60.0 mL/Min [facility] Creatinine Clearance (Chem N/A [facility] Nucleated erythrocytes [Pres ence] in Blood by Automated countOrdered By: Dalia Mar on 02-01-2024 Nucleated RBC Auto Ql (Bld) 0.1 /100{WBC} 0-0.5 [facility] Platelet mean volume [Entiti c volume] in Blood by Automated countOrdered By: Dalia Mar on 02-01-2024 Platelet mean volume (Bld) [Entitic vol] 8.7 fL Normal 6.3-10.7 [facility] Comment on above: Performed By: #### T 3F, TSH, T4F #### [facility] [address] [place] [address] [place] Platelets [#/volume] in Bloo d by Automated countOrdered By: Dalia Mar on 02-01-2024 Platelets (Bld) [#/Vol] 288 10*3/uL Normal 150-450 [facility] Comment on above: Performed By: #### T 3F, TSH, T4F #### [facility] [address] [place] [address] [place] Potassium [Moles/volume] in Serum or PlasmaOrdered By: Dalia Mar on 02-01-2024 Potassium [Moles/Vol] 4.3 mmol/L Normal 3.5-5.1 [facility] Comment on above: Performed By: #### T 3F, TSH, T4F #### [facility] [address] [place] [address] [place] Protein Test strip (U) [Mass /Vol]Ordered By: Dalia Mar on 02-01-2024 Protein (U) [Mass/Vol] Negative Negative [facility] Protein [Mass/volume] in Ser um or PlasmaOrdered By: Dalia Mar on 02-01-2024 Protein [Mass/Vol] 6.0 g/dL Low 6.4-8.9 [facility] Comment on above: Performed By: #### T 3F, TSH3, T4F #### [facility] [address] [place] [address] Serum globulin measurement b y calculation (mass/volume)Ordered By: Dalia Mar on 02-01-2024 Globulin (S) [Mass/Vol] 2.2 g/dL Normal [facility] Comment on above: Performed By: #### T 3F, TSH3, T4F #### [address] Serum or plasma albumin/glob ulin mass ratioOrdered By: Dalia Mar on 02-01-2024 Albumin/Globulin [Mass ratio] 1.7 {ratio} [facility] Comment on above: Performed By: #### T 3F, TSH3, T4F #### [address] Serum or plasma anion gap de terminationOrdered By: Dalia Mar on 02-01-2024 Anion gap [Moles/Vol] 10.5 mmol/L Normal 6.0-15.0 [facility] Comment on above: Performed By: #### T 3F, TSH3, T4F #### [facility] [address] [place] [address] Serum or plasma high density lipoprotein (HDL) cholesterol measurementOrdered By: Dalia Mar on 02-01-2024 Cholesterol in HDL [Mass/Vol] 40 mg/dL Normal 23-92 [facility] Comment on above: HDL CHOL ATP-III CLA SSIFICATION Cardiovascular RiskHDL > or equal to 60 mg/dL LOWHDL < 40 mg/dL HIGH Result Comment: HDL CHOL ATP-III CLASSIFICATION Cardiovascular Risk HDL > or equal to 60 mg/dL LOW HDL < 40 mg/dL HIGH Performed By: #### T 3F, TSH3, T4F #### [place] [id number] [place] Serum or plasma total choles terol/high density lipoprotein (HDL) cholesterol mass ratOrdered By: Dalia Mar on 02-01-2024 Cholesterol.total/Ch olesterol in HDL [Mass ratio] 4.1 {ratio} Normal <5.0 [facility] Comment on above: Performed By: #### T 3F, TSH3, T4F #### [facility] [address] [place] [address] [place] Sodium [Moles/volume] in Ser um or PlasmaOrdered By: Dalia Mar on 02-01-2024 Sodium [Moles/Vol] 138 mmol/L Normal 136-145 [facility] Comment on above: Performed By: #### T 3F, TSH3, T4F #### [address] Specific gravity Test strip (U) [Rel density]Ordered By: Dalia Mar on 02-01-2024 Specific gravity (U) [Rel density] 1.016 1.001-1.030 [facility] Thyrotropin [Units/volume] i n Serum or PlasmaOrdered By: Dalia Mar on 02-01-2024 TSH Qn 1.71 m[IU]/L Normal 0.45-5.33 [facility] Comment on above: Result Comment: PERF ORMED BY: [place] [address]END[address] WENDY CLARK M.D. Performed By: #### T 3F, TSH3, T4F #### [facility] [address] [place] [address] [place] Transferrin [Mass/volume] in Serum or PlasmaOrdered By: Dalia Mar on 02-01-2024 Transferrin [Mass/Vol] 238 mg/dL Normal 203-362 [facility] Comment on above: Performed By: #### T 3F, TSH3, T4F #### [place] [address] [place] Triglyceride [Mass/volume] i n Serum or PlasmaOrdered By: Dalia Mar on 02-01-2024 Triglyceride [Mass/Vol] 176 mg/dL High 0-149 [facility] Comment on above: TRIG ATP III CLASSIF ICATIONTRIG less than 150 mg/dL NormalTRIG 150-199 mg/dL Borderline highTRIG 200-500 mg/dL High TRIG greater than 500 mg/dL Very highStandard traceable to the Center for Disease Conrtrol and Prevention (CDC) test method. Urea nitrogen [Mass/volume] in Serum or PlasmaOrdered By: Dalia Mar on 02-01-2024 Urea nitrogen [Mass/Vol] 10 mg/dL Normal 7-25 [facility] Comment on above: Performed By: #### T 3F, TSH3, T4F #### [address] Urinalysison 02-01-2024 Bilirubin,Urine Negative Normal Negative [facility] Comment on above: Order Comment: Name Collection Type:: Clean-Voided Midstream Performed By: #### T 3F, TSH3, T4F #### [address] Glucose Ql (U) Normal Normal Normal [facility] Comment on above: Order Comment: Name Collection Type:: Clean-Voided Midstream Performed By: #### T 3F, TSH3, T4F #### [place] [address] [place] Nitrite,Urine Negative Normal Negative [facility] Comment on above: Order Comment: Name Collection Type:: Clean-Voided Midstream Performed By: #### T 3F, TSH3, T4F #### [place] [id number] [place] Occult Blood,Urine Negative Normal Negative [facility] Comment on above: Order Comment: Name Collection Type:: Clean-Voided Midstream Result Comment: PERF ORMED BY: [place] [address]END[address] WENDY CLARK M.D. Performed By: #### T 3F, TSH3, T4F #### [place] [address] [place] Protein,Urine Negative Normal Negative [facility] Comment on above: Order Comment: Name Collection Type:: Clean-Voided Midstream Performed By: #### T 3F, TSH3, T4F #### [address] Specificy [place],Urine 1.016 Normal 1.001-1.030 [facility] Comment on above: Order Comment: Name Collection Type:: Clean-Voided Midstream Performed By: #### T 3F, TSH3, T4F #### [address] Urobilinogen,Urine Normal Normal Normal [facility] Comment on above: Order Comment: Name Collection Type:: Clean-Voided Midstream Performed By: #### T 3F, TSH3, T4F #### [address] Urine appearanceOrdered By: Dalia Mar on 02-01-2024 Appearance (U) Clear Normal Clear [facility] Comment on above: Order Comment: Name Collection Type:: Clean-Voided Midstream Performed By: #### T 3F, TSH3, T4F #### [address] Urine microalbumin/creatinin e mass ratioOrdered By: Dalia Mar on 02-01-2024 Albumin/Creatinine DL <= 20 mg/L (U) [Mass ratio] TNP [facility] Comment on above: Test not performed Urobilinogen Test strip (U) [Mass/Vol]Ordered By: Dalia Mar on 02-01-2024 Urobilinogen (U) [Mass/Vol] Normal mg/dL Normal [facility] pH of Urine by Test stripOrd ered By: Dalia Mar on 02-01-2024 pH (U) 6.0 [pH] Normal 5.0-9.0 [facility] Comment on above: Order Comment: Name Collection Type:: Clean-Voided Midstream Performed By: #### T 3F, TSH3, T4F #### [address] MM screening mammo BI w/CADo n 01-20-2024 MM screening mammo BI w/CAD [facility] [place] [address] [place] [address] Mammography Report Signed Patient: Lupe Pickard MR#: [id number] : 1975 Acct:[id number] Age/Sex: 48 / F ADM Date: 01/20/24 Loc: DC Room: Type: [facility] Attending Dr: Referral Self Copies to: Melissa Singh II, DO SELF,REFERRAL Ordering Provider: SELF,REFERRAL Date of Service: 01/20/24 MM/MM screening mammo BI w/CAD: SCREENING BILATERAL Screening Full Field digital mammogram with 3-D imaging. Full field digital CC and MLO imaging performed. CAD utilized. COMPARISON: 12/29/2022 HISTORY: Annual screening BREAST COMPOSITION: The breast is almost entirely fatty. BREAST CALCIFICATIONS: Benign calcifications present. VASCULAR CALCIFICATIONS: None ARCHITECTURAL DISTORTION: None BREAST NODULE: Similar left breast nodularity AXILLARY LYMPH NODES: Normal POSTSURGICAL CHANGES: Left biopsy marking clip MM/MM screening mammo BI w/CAD IMPRESSION: No mammographic evidence of malignancy. Routine follow-up recommended in one year. RESULT CODE: 2 Benign Findings(s) DENSITY CODE: 1 (<25% glandular) FOLLOW UP: 1YR THE FALSE-NEGATIVE RATE OF MAMMOGRAPHY IS APPROXIMATELY 10%. IMAGING OF A PALPABLE ABNORMALITY MUST BE BASED ON CLINICAL GROUNDS. PATIENT WAS ENTERED INTO A REMINDER SYSTEM WITH A TARGET DUE DATE FOR THE NEXT MAMMOGRAM. 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 The patient has 4 children 3 grandchildren *this patient's daughter, Sheron, RN, works at [facility] on the OB floor - she's 31 Oldest son is 30, lives with his grandma since age 14; he's spoiled, and the world revolves around him. 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 The only time he calls me is when he needs something. He has two kids, 3 and 5, with a woman who now lives in [place]; they come to [facility] every other weekend and stay with the patient - he struggles with coping with the reality that their mother doesn't want to be in a relationship with him He also has one kid, 2, with a woman in [place] - she has full custody of that child Youngest son works at [facility] in housekeeping - he's in college my youngest son has [employer] Youngest daughter is at [employer] for cosmetology - might seek training for cosmetology after graduation both son's have ADHD my girls are good... my boys, i don't know what to do with them Her brother and step father both from a fentanyl overdose Screening: Colon Cancer screening: done at [facility] in 2022 with a ten year f/u recommended; this patient does NOT have family history of colon cancer Breast cancer screening: done at [facility] (usually ordered by PCP); this patient DOES have a family history of breast cancer - paternal grandmother Pap smear: 2 years DEXA: age Labs: usually done at [facility] Smokers/ former smokers: Low dose lung CT: intermittent - socially; never went over a half pack a day. Began age 17. Her partner does not smoke. List of Providers: Counseling/psychiatr y-Radha Mcintosh Rheumatology - SAMMY Skinner (autoimmune evaluation) Endocrinology - Dr. Dove (managing thyroid meds) Cardiology - Dr. Owen Schmidt Urology - Dr Ozuna (for botox injections) Pain management - [facility] --> prescribes norco --> Brielle Dominguez / Dr. Murphy Regulatory Compliance Specialist - Dr. Amanda Montiel Ortho - Dr. [...] 10 no radiation of pain ice, heat, [place], and Tylenol can help for an hour or two for the pain On October 03, 2023, an injection of Kenalog in the right subacromial space was done and has helped lifting, bending, standing too long, sometimes nothing at all makes the pain worse had a transforaminal epidural at T9, T10, T11, and T12 on the right side was done yesterday at [facility], done by Dr. Georgina kaur through the [place] [facility] this procedure has helped with [...] nourished, no acut (more content not included)... [facility] Comment on above: Result Comment: Elec tronically Signed By: Melissa Singh DO\.br\Date and Time Signed: 10/12/23 09:11 EDT Consultation Noteon 10-04-19 Consultation Note [id number] #1.00TIFF [facility] ED Note-Physicianon 09-23-19 ED Note-Physician [id number] #1.00TIFF [facility] Physician Referralon 024 Physician Referral [id number] #1.00TIFF [facility] Physician Referral [id number] #1.00TIFF [facility] Ambulatory Visit Summaryon 0 09-21-2023 Ambulatory Visit Summary LUPE PICKARD :1975 Visit Date:09/21/2023 Ambulatory Visit Instructions Your Diagnosis Rotator cuff injury Shoulder pain Adult BMI 45.0-49.9 kg/sq m Your Care Team Attending Physician - Melissa Singh DO Primary Care Physician - Melissa Singh DO This Is Your Medications List [...] What to do next Scheduled Follow-Up Appointments Tuesday. 2023 3:00 PM EDT With: Melissa Singh DO Where: [facility] Invalid Interpretation Code [address] [place] [address]-\.br\ You Need to Schedule the Following Appointments\.br\ Follow Up with Melissa Singh DO, [facility], PED When: Within 1 month\.br\ Comments:\.br\ OMT [...] \.br\ Where:\.br\ [address]\.br\ [place] [address]\.br\ [phone]\.br\ Someone Will Contact You Regarding These Appointments\.br\ [facility] External Ambulatory Referral, Orthopaedics, Jacqui Lin, 09/21/23 12:00:00 EDT, Rotator cuff injury\.br\ [facility] External Ambulatory Referral, Physical Therapy, riley, 09/21/23 12:13:00 EDT, Rotator cuff injury [facility] Family Medicine Office/Clini c Noteon 09-21-2023 Family Medicine Office/Clinic Note Chief Complaint ER F/U HPI Staff ER followup: Hospital: [facility] Visit date: 09/20/23 Symptoms the patient presented [...] 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 The only time he calls me is when he needs something. He has two kids, 3 and 5, with a woman who now lives in [place]; they come to [facility] every other weekend and stay with the patient - he struggles with coping with the reality that their mother doesn't want to be in a relationship with him He also has one kid, 2, with a woman in [place] - she has full custody of that child Youngest son works at [facility] in housekeeping - he's in college Youngest daughter is at [employer] for cosmetology - might seek training for cosmetology after graduation both son's have ADHD my girls are good... my boys, i don't know what to do with them Screening: Colon Cancer screening: done at [facility] in 2022 with a ten year f/u recommended; this patient does NOT have family history of colon cancer Breast cancer screening: done at [facility] (usually ordered by PCP); this patient DOES have a family history of breast cancer - paternal grandmother Pap smear: 2 years DEXA: age Labs: usually done at [facility] Smokers/ former smokers: Low dose lung CT: intermittent - socially; never went over a half pack a day. Began age 17. Her partner does not smoke. List of Providers: Counseling/psychiatr y-Radha Mcintosh Rheumatology - Roula Skinner (autoimmune evaluation) Endocrinology - Dr. Dove (managing thyroid meds) Cardiology - Dr. Owen Schmidt Urology - Dr Ozuna (for botox injections) Pain management - [facility] --> prescribes norco --> Brielle Dominguez / Dr. Murphy Regulatory Compliance Specialist - Dr. Amanda Montiel Ortho referral 09/21/23 [...] she lifts her arm [facility] on 09/20/23 - xray reveals [...] today PLAIN (more content not included)... Normal [facility] Comment on above: Result Comment: Elec tronically Signed By: Melissa Singh DO\riley\Date and Time Signed: 09/21/23 19:51 EDT [facility] - [place] [id number] #1.00TIFF Normal [facility] XR shoulder RT min 2V*on XR shoulder RT min 2V* [place] [address] XRay Report Signed Patient: Lupe Pickard MR#: [id number] : 1975 Acct:[id number] Age/Sex: 48 / F ADM Date: 09/20/23 Loc: ER Room: Type: [facility] ER Attending Dr: Copies to: Javad Lozoya [...] Rizwana Thacker M.D.09/20/2023 12:27 PM Dictation Location: [place] [address] Transcribed By: BOB 09/20/23 1227 Dictated By: Rizwana Thacker MD 09/20/23 1224 Signed By: 09/20/23 1227 Normal [facility] Family Medicine Office/Clini c Noteon 09-07-2023 Family Medicine Office/Clinic Note Chief Complaint F/U HPI Staff Patient here for F/U OMT Neck/Back JERRICA 07/26/23 Labs 07/29/23 [facility] Concerns for her vitamin D level. 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 The patient has 4 children 3 grandchildren *this patient's daughter, SHAHNAZ Holbrook, works at [facility] on the OB floor - she's 31 Oldest son is 30, lives with his grandma since age 14; he's spoiled, and the world revolves around him. 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 The only time he calls me is when he needs something. He has two kids, 3 and 5, with a woman who now lives in [place]; they come to [facility] every other weekend and stay with the patient - he struggles with coping with the reality that their mother doesn't want to be in a relationship with him He also has one kid, 2, with a woman in [place] - she has full custody of that child Youngest son works at [employer] in housekeeping - he's in college Youngest daughter is at [employer] for cosmetology - might seek training for cosmetology after graduation both son's have ADHD my girls are good... my boys, i don't know what to do with them Screening: Colon Cancer screening: done at [facility] in 2022 with a ten year f/u recommended; this patient does NOT have family history of colon cancer Breast cancer screening: done at [facility] (usually ordered by PCP); this patient DOES have a family history of breast cancer - paternal grandmother Pap smear: 2 years DEXA: age Labs: usually done at [facility] Smokers/ former smokers: Low dose lung CT: intermittent - socially; never went over a half pack a day. Began age 17. Her partner does not smoke. List of Providers: Counseling/psychiatr charlene-Radha Mcintosh Rheumatology - SAMMY Skinner (autoimmune evaluation) Endocrinology - Dr. Dove (managing thyroid meds) Cardiology - Dr. Owen Schmidt Urology - Dr Ozuna (for botox injections) Pain management - [facility] --> prescribes norco --> Brielle Dominguez / Dr. Murphy Regulatory Compliance Specialist - Dr. Amanda Montiel HPI staff / [...] EM[place] done [place] long time ago in [place] --> [facility] in [place] for chronic pain reports IBS symptoms - [...] and forman (more content not included)... Normal [facility] Comment on above: Result Comment: Elec tronically Signed By: Melissa Singh DO\Date and Time Signed: 09/07/23 09:15 EDT RAD - MRI Reporton RAD - MRI Report [id number] #1.00TIFF Normal [facility] Ambulatory Visit Summaryon 0 09-06-2023 Ambulatory Visit [...] pain Your Care Team Attending Physician - Melissa Singh DO Primary Care Physician - Melissa Singh DO This Is Your Medications List [...] STOP]Stop taking these medications [place] acetaminophen-hydroc odone ([place] 5/325 Tab) bacillus coagulans (Probiotic Digestive Aid [...] What to do next Scheduled Follow-Up Appointments Tuesday. 2023 3:00 PM EDT With: Melissa Singh DO Where: [facility] Normal [address] [place] [address]-\.br\ You Need to Schedule the Following Appointments\.br\ Follow Up with Melissa Singh DO, JOSELUIS, PED When: Within 1 [...] PRN\.br\ Where:\.br\ [address]\.br\ [place] [address]\.br\ [id number]\.br\ Medications\.br\ What How Much When Why Instructions\.br\ [...] Much When Comments\.br\ Stop Taking acetaminophen-hyd rocodone ([place] 5/ 325 Tab) 2 Tablets\.br\ Stop Taking [...] for choosing us for your care.\.br\ \.br\ [facility] MR thoracic spine wo cox [place] 0 08-16-2023 MR thoracic spine wo con [facility] Main [address] [address] MRI Report Signed Patient: Lupe Pickard MR#: [id number] : 1975 Acct:[id number] Age/Sex: 48 / F ADM Date: 08/16/23 Loc: MR Room: Type: [facility] CLI Attending Dr: Brielle GERMAIN Copies to: MARCELLUS [...] Ernie Roper M.D.08/16/2023 5:28 PM Dictation Location: [place] [address] Transcribed By: [facility] 08/16/231727 Dictated By: Ernie Roper II, MD 08/16/231721 Signed By: 08/16/231727 Normal [facility] Lab Reportson 07-29-2023 Lab Reports [id number] #1.00TIFF Normal [facility] Consent for Treatmenton 07-01 Consent for Treatment [id number] #1.00TIFF Normal [facility] Ferritin [Mass/volume] in Se rum or PlasmaOrdered By: Melissa Singh on 07-28-2023 Ferritin [Mass/Vol] 180.6 ng/mL Normal 11.0-306.8 [facility] Comment on above: Performed By: #### T 3F, TSH3, T4F #### [facility] [address] [place] [id number] [facility] Folateon 07-28-2023 Folate 43.0 ng/mL Normal >5.9 [facility] Comment on above: Result Comment: Janel te reference range: >5.9 ng/ml The WHO technical consultation on folate and vitamin b12 deficiencies has determined that folate concentrations less than 4 ng/ml are considered deficient. Performed By: #### T 3F, TSH3, T4F #### [facility] [address] [id number] [facility] Folate [Mass/volume] in Seru m or PlasmaOrdered By: Melissa Singh on 07-28-2023 Folate [Mass/Vol] 43.0 ng/mL >5.9 [facility] Comment on above: Folate reference ran ge: >5.9 ng/mlThe WHO technical consultation on folate and vitamin [id number] has determined that folate concentrations lessthan 4 ng/ml are considered deficient. Heart and Vascular Office/Cl in Noteon 07-28-2023 Heart and Vascular Office/Clinic Note History of Present Illness Patient is a very pleasant 48-year-old morbidly obese nondiabetic female with a history of fibromyalgia, GERD, former smoker quit more than 30 years ago, referred to our office for palpitations. Patient was originally referred to [facility] with Dr. Ross and she provided several [...] was told it was okay by her [employer]. Given the patient's family history of heart disease she wanted a second opinion. The patient went to the emergency room in the recent past and [facility] where her blood pressure was found [...] Morbid o (more content not included)... Normal [facility] Comment on above: Result Comment: Elec tronically Signed By: SANTY PELAYO, Franklyn Johnson.br\Date and Time Signed: 07/28/23 11:46 EST Iron [Mass/volume] in Serum or PlasmaOrdered By: Melissa Singh on 07-28-2023 Iron [Mass/Vol] 100 ug/dL Normal 50-212 [facility] Comment on above: Performed By: #### T 3F, TSH3, T4F #### [facility] [address] [place] [address] Magnesium [Mass/volume] in S zakia or PlasmaOrdered By: Melissa Singh on 07-28-2023 Magnesium [Mass/Vol] 2.0 mg/dL Normal 1.9-2.7 [facility] Comment on above: Performed By: #### T 3F, TSH3, T4F #### [facility] [address] [place] [address] Physician Orderon 07-28-2023 Physician Order [id number] #1.00TIFF Normal [facility] Thyroid Stim Hormone w/Rflxo n 07-28-2023 Thyroid Stim Hormone w/Rflx 1.20 u[iU]/mL Normal 0.45-5.33 [facility] Comment on above: Performed By: #### T 3F, TSH3, T4F #### [facility] [address] [place] [address] Thyrotropin [Units/volume] i n Serum or PlasmaOrdered By: Melissa Singh on 07-28-2023 TSH Qn 1.20 m[IU]/L 0.45-5.33 [facility] Vitamin B12 ser/plasOrdered By: Melissa Singh on 07-28-2023 Cobalamin (Vitamin B12) [Mass/Vol] 432 pg/mL Normal 180-914 [facility] Comment on above: Performed By: #### T 3F, TSH3, T4F #### [facility] [address] [id number] [facility] Vitamin D 25 Hydroxy Totalon 07-28-2023 Vitamin D 25 Hydroxy Total 32.9 ng/mL Normal 30-100 [facility] Comment on above: Result Comment: QASIM MIN D STATUS 25(OH)VITAMIN D RANGE (ng/mL) Deficient <20 Insufficient 20 to <30 Sufficient 30 to 100 Reference: Adonay Espinosa, Shantelle HOLLOWAY, et al. Evaluation,treatment, and prevention of vitamin D deficiency; an Endocrine Society clinical practice guideline. JCEM. 2010; 96(7):1911-30. PERFORMED BY: [place] [address] WENDY CLARK M.D. Performed By: #### T 3F, TSH3, T4F #### [facility] [address] [id number] [facility] Vitamin D+Metabolites [Mass/ volume] in Serum or PlasmaOrdered By: Melissa Singh on 07-28-2023 Vitamin D+Metabolites [Mass/Vol] 32.9 ng/mL 30-100 [facility] Comment on above: VITAMIN D STATUS 25( [place])VITAMIN D RANGE (ng/mL) Deficient <20 Insufficient 20 to <30Sufficient 30 to 100Reference: Adonay Espinosa, Shantelle HOLLOWAY, et al. Evaluation,treatment, and prevention of vitamin D deficiency; an Endocrine Society clinical practice guideline. JCEM. 2010; 96(7):1911-30. Ambulatory Visit Summaryon 0 07-26-2023 Ambulatory Visit [...] pain Your Care Team Attending Physician - Melissa Singh DO Primary Care Physician - Melissa Singh DO This Is Your Medications List Turmeric acetaminophen (Tylenol) acetaminophen-hydroc odone ([place] 5/325 Tab) aspirin (aspirin 81 mg oral [...] Cardiology Clinic Tuesday 2:20 PM EDT With: Melissa Singh DO Where: [facility] [place] Normal [address] [place] [address]-\.br\ You Need to Schedule the Following Appointments\.br\ Follow Up with Melissa Singh DO, JOSELUIS, PED When: Within 1 month\.br\ Comments:\.br\ OMT PRN - 40 min slot\.br\ To go instructions (for follow up):\.br\ Complete tamiflu\.br\ Have labs drawn at [facility] and make sure they send us a [...] well\.br\ Where:\.br\ [address]\.br\ [place] [address]\.br\ [phone]\.br\ Medications\.br\ What How Much When Why Instructions\.br\ Unchanged acetaminophen (Tylenol)\.br\ Unchanged acetaminophen-hyd rocodone ([place] 5/ 325 Tab) 2 Tablets\.br\ Unchanged aspirin [...] for choosing us for your care.\.br\ \.br\ [facility] Ambulatory Visit Summary LUPE PICKARD :1975 Visit [...] pain Your Care Team Attending Physician - Melissa Singh DO Primary Care Physician - Melissa Singh DO This Is Your Medications List Turmeric acetaminophen (Tylenol) acetaminophen-hydroc odone ([place] 5/325 Tab) aspirin (aspirin 81 mg oral [...] Cardiology Clinic Tuesday 2:20 PM EDT With: Melissa Singh DO Where: [facility] Normal [address] [place] [address]-\.br\ You Need to Schedule the Following Appointments\.br\ Follow Up with Melissa Singh DO, JOSELUIS, PED When: Within 1 month\.br\ Comments:\.br\ OMT PRN - 40 min slot\.br\ To go instructions (for follow up):\.br\ Complete tamiflu\.br\ Have labs drawn at [facility] and make sure they send us a [...] well\.br\ Where:\.br\ [address]\.br\ [place] [address]\.br\ [phone]\.br\ Medications\.br\ What How Much When Why Instructions\.br\ Unchanged acetaminophen (Tylenol)\.br\ Unchanged acetaminophen-hyd rocodone ([place] 5/ 325 Tab) 2 Tablets\.br\ Unchanged aspirin [...] choosing us for your care.\.br\ \.br\ [facility] Family Medicine Office/Clini c Noteon 07-26-2023 Family Medicine Office/Clinic Note Chief Complaint F/U OMT HPI Staff Patient here today to F.U OMT Neck/ Back/ ER F/U JERRICA 06/28/23 Patient on the mend from flu on last day of Marie-flu today. 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 The patient has 4 children 3 grandchildren *this patient's daughter, Sheron, works at [employer] on the OB floor - she's 29 Oldest son is 30, lives with his grandma since age 14; he's spoiled, and the world revolves around him. 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 The only time he calls me is when he needs something. He has two kids, 3 and 5, with a woman who now lives in [place]; they come to [facility] every other weekend and stay with the patient - he struggles with coping with the reality that their mother doesn't want to be in a relationship with him He has on kid, 2, with a woman in [place] - she has full custody of that child SHAHNAZ [place], on her own Youngest son works at [facility] in housekeeping - he's in college Youngest daughter is at [employer] for cosmetology - might seek training for [...] seen for Flu in the ED at [facility] on 07/22/23 requested tamiflu today is her last day of tamiflu still has some congestion I for sure had covid and strep the week before was seen at [facility] urgent care for this was treated with [...] flag symptom (more content not included)... Normal [facility] Comment on above: Result Comment: Elec tronically Signed By: Melissa Singh DO\Date and Time Signed: 07/26/23 14:06 EST ED Note-[facility] 07-25-19 ED Note-Physician [id number] #1.00TIFF Normal [facility] Activated partial thrombopla stin time (aPTT) in platelet poor plasma by coagulation aOrdered By: Jacqui Samayoa on 07-22-2023 aPTT Coag (PPP) [Time] 29.6 s 25.1-36.5 [facility] Comment on above: A hematocrit value g reater than 55% may lead to inaccurate results in coagulation testing. Patients having hematocrit values >55% require a special collection tube for coagulation studies. Please contact the laboratory at [phone] for redraw instructions. Automated basophil %Ordered By: Jacqui Samayoa on 07-22-2023 Basophils/100 WBC (Bld) 0.5 % Normal . [facility] Comment on above: Performed By: #### H S TROP, PTT, BMP, PT, CBC, BNP, CK #### [address] Automated basophil countOrde red By: Jacqui Samayoa on 07-22-2023 Basophils (Bld) [#/Vol] 0.1 10*3/uL Normal 0.0-0.2 [facility] Comment on above: Result Comment: PERF ORMED BY: [place] [address] WENDY CLARK M.D. Performed By: #### H S TROP, PTT, BMP, PT, CBC, BNP, CK #### [address] Automated blood monocyte cou ntOrdered By: Jacqui Samayoa on 07-22-2023 Monocytes (Bld) [#/Vol] 0.6 10*3/uL Normal 0.0-0.8 [facility] Comment on above: Performed By: #### H S TROP, PTT, BMP, PT, CBC, BNP, CK #### [address] Automated eosinophil %Ordere d By: Jacqui Samayoa on 07-22-2023 Eosinophils/100 WBC (Bld) 0.3 % Normal . [facility] Comment on above: Performed By: #### H S TROP, PTT, BMP, PT, CBC, BNP, CK #### [address] Automated eosinophil countOr dered By: Jacqui Samayoa on 07-22-2023 Eosinophils (Bld) [#/Vol] 0.0 10*3/uL Normal 0.0-0.45 [facility] Comment on above: Performed By: #### H S TROP, PTT, BMP, PT, CBC, BNP, CK #### [address] Automated monocyte %Ordered By: Jacqui Samayoa on 07-22-2023 Monocytes/100 WBC (Bld) 6.2 % Normal . [facility] Comment on above: Performed By: #### H S TROP, PTT, BMP, PT, CBC, BNP, CK #### [address] Automated neutrophil %Ordere d By: Jacqui Samayoa on 07-22-2023 Neutrophils/100 WBC (Bld) 84.3 % Normal . [facility] Comment on above: Performed By: #### H S TROP, PTT, BMP, PT, CBC, BNP, CK #### [address] BNP ser/plasOrdered By: Ольга Samayoa on 07-22-2023 Natriuretic peptide B (Bld) [Mass/Vol] 67.0 pg/mL Normal 5-100 [facility] Comment on above: Result Comment: PERF ORMED BY: [place] [address] WENDY CLARK M.D. Performed By: #### H S TROP, PTT, BMP, PT, CBC, BNP, CK #### [address] Bacterial blood cultureOrder ed By: Jacqui Samayoa on 07-22-2023 Bacteria identified Cx Nom (Bld) NO GROWTH 5 DAYS [facility] Bacteria identified Cx Nom (Bld) NO GROWTH 5 DAYS [facility] Basic Metabolic Panelon 07-01 Creatinine Clr Calc Pharmacy 184.90 Normal [facility] Comment on above: Result Comment: PERF ORMED BY: [place] [address] WENDY CLARK M.D. Performed By: #### H S TROP, PTT, BMP, PT, CBC, BNP, CK #### [address] GFR/1.73 sq M.predicted MDRD (S/P/Bld) [Vol rate/Area] mL/min/{1.73_m2} Normal [facility] Comment on above: Performed By: #### H S TROP, PTT, BMP, PT, CBC, BNP, CK #### [address] Blood Cultureon 07-22-2023 Bacteria identified Cx Nom (Bld) NO GROWTH 5 DAYS PERFORMED BY: [place] [address] ATTEND[address] WENDY CLARK M.D. Normal [facility] Comment on above: Performed By: #### T 3F, TSH3, T4F #### [address] Bacteria identified Cx Nom (Bld) NO GROWTH 5 DAYS PERFORMED BY: [place] [address] ATTEND[address] WENDY CLARK M.D. Normal [facility] Comment on above: Performed By: #### T 3F, TSH3, T4F #### [address] COVID CepheidOrdered By: Iris Samayoa on 07-22-2023 SARS-CoV-2 (COVID-19) Ab IA Ql Negative Negative [facility] Comment on above: This is a duplicate Cepheid Xpert Xpress CoV-2/Flu/RSV Plus RNA by RT-PCR result to be used for statistical tracking purpose only. SARS-CoV-2 (COVID-19) RNA CESAR+probe Ql (Unsp spec) [facility] SARS-CoV-2 (COVID-19) RNA CESAR+probe Ql (Unsp spec) [facility] COVID-19 / Flu A/B / RSV [...] or Cepheid Disclaimer revoked sooner. PERFORMED BY: [facility] [place] [address] ATTEND[address] WENDY CLARK M.D. Normal [facility] Comment on above: Performed By: #### C EPHEID NEG, COVID19 FLU RSV #### [place] [id number] [facility] Calcium [Mass/volume] in Ser um or PlasmaOrdered By: Jacqui Samayoa on 07-22-2023 Calcium [Mass/Vol] 8.7 mg/dL Normal 8.6-10.3 [facility] Comment on above: Performed By: #### H S TROP, PTT, BMP, PT, CBC, BNP, CK #### [facility] [address] [place] [address] Carbon dioxide, total [Moles /volume] in Serum or PlasmaOrdered By: Jacqui Samayoa on 07-22-2023 CO2 [Moles/Vol] 24.1 mmol/L Normal 21.0-31.0 [facility] Comment on above: Performed By: #### H S TROP, PTT, BMP, PT, CBC, BNP, CK #### [facility] [address] [place] [address] Cepheid COVID PCR Negativeon 07-22-2023 SARS-CoV-2 (COVID-19) RNA CESAR+probe Ql (Unsp spec) Negative Normal Negative [facility] Comment on above: Result Comment: This is a duplicate Cepheid Xpert Xpress CoV-2/Flu/RSV Plus RNA by RT-PCR result to be used for statistical tracking purpose only. PERFORMED BY: [place] [address] WENDY CLARK M.D. Performed By: #### C EPHEID NEG, COVID19 FLU RSV #### [facility] [address] [place], [place] [id number] [place] Chloride [Moles/volume] in S zakia or PlasmaOrdered By: Jacqui Samayoa on 07-22-2023 Chloride [Moles/Vol] 104 mmol/L Normal 98-107 [facility] Comment on above: Performed By: #### H S TROP, PTT, BMP, PT, CBC, BNP, CK #### [address] Complete Blood Count Auto Di ffon 07-22-2023 Mean Corpuscular HGB Conc 33.7 g/dL Normal 32.0-35.0 [facility] Comment on above: Performed By: #### H S TROP, PTT, BMP, PT, CBC, BNP, CK #### [place] [address] [place] Monocytes/100 WBC (Bld) 27.10 % High 0.00-20.00 [facility] Comment on above: Result Comment: For adults in ED, MDW > 20.0 may be associated with a higher risk of sepsis during the first 12 hrs of hospital admission Performed By: #### H S TROP, PTT, BMP, PT, CBC, BNP, CK #### [address] NRBC% 0.0 /100{WBC} Normal 0-0.5 [facility] Comment on above: Performed By: #### H S TROP, PTT, BMP, PT, CBC, BNP, CK #### [address] Creatine kinase [Enzymatic a ctivity/volume] in Serum or PlasmaOrdered By: Jacqui Samayoa on 07-22-2023 CK [Catalytic activity/Vol] 37 U/L Normal 30-223 [facility] Comment on above: Performed By: #### H S TROP, PTT, BMP, PT, CBC, BNP, CK #### [address] Creatinine [Mass/volume] in Serum or PlasmaOrdered By: Jacqui Samayoa on 07-22-2023 Creatinine [Mass/Vol] 0.52 mg/dL Low 0.60-1.20 [facility] Comment on above: Performed By: #### H S TROP, PTT, BMP, PT, CBC, BNP, CK #### [address] ECG 12 lead ECGon 07-22-2023 ECG 12 lead ECG [facility] [address] [place] [address] Electrocardiograph Report Signed Patient: Lupe Pickard MR#: [id number] : 1975 Acct:[id number] Age/Sex: 48 / F ADM Date: 07/22/23 Loc: ER Room: Type: [facility] ER Attending Dr: Ordering Provider: Jacqui Samayoa [...] By Jacqui Samayoa DO 1452 Normal [facility] Erythrocyte distribution wid th [Ratio] by Automated countOrdered By: Jacqui Samayoa on 07-22-2023 Erythrocyte distribution width (RBC) [Ratio] 14.9 % Normal 11.9-15.3 [facility] Comment on above: Performed By: #### H S TROP, PTT, BMP, PT, CBC, BNP, CK #### [facility] [address] [place] [address] [place] Erythrocytes [#/volume] in B lood by Automated countOrdered By: Jacqui Samayoa on 07-22-2023 RBC (Bld) [#/Vol] 4.64 10*6/uL Normal 3.60-5.00 [facility] Comment on above: Performed By: #### H S TROP, PTT, BMP, PT, CBC, BNP, CK #### [facility] [address] [place] [address] [place] Glucose [Mass/volume] in Ser um or PlasmaOrdered By: Jacqui Samayoa on 07-22-2023 Glucose [Mass/Vol] 97 mg/dL Normal 70-100 [facility] Comment on above: ADA recommended refe rence rangeRandom Glucose Reference Range is dependent on time and content of last meal. Glucose of more than 200 mg/dL in a nonstressed, ambulatory subject supports the diagnosis of Diabetes Mellitus. Result Comment: [place] om Glucose Reference Range is dependent on time and content of last meal. Glucose of more than 200 mg/dL in a nonstressed, ambulatory subject supports the diagnosis of Diabetes Mellitus. ADA recommended reference range Performed By: #### H S TROP, PTT, BMP, PT, CBC, BNP, CK #### [facility] [address] [place] [address] Hematocrit [Volume Fraction] of Blood by Automated countOrdered By: Jacqui Samayoa on 07-22-2023 Hematocrit (Bld) [Volume fraction] 41.0 % Normal 34.0-46.4 [facility] Comment on above: Performed By: #### H S TROP, PTT, BMP, PT, CBC, BNP, CK #### [facility] [address] [place] [address] Hemoglobin [Mass/volume] in BloodOrdered By: Jacqui Samyaoa on 07-22-2023 Hemoglobin (Bld) [Mass/Vol] 13.8 g/dL Normal 11.8-15.4 [facility] Comment on above: Performed By: #### H S TROP, PTT, BMP, PT, CBC, BNP, CK #### [facility] [address] [place] [address] INR in Platelet poor plasma by Coagulation assayOrdered By: Jacqui Samayoa on 07-22-2023 INR Coag (PPP) [Relative time] 1.0 {INR} Normal [facility] Comment on above: INR Therapeutic Rang [...] 3 - 4.5 Performed By: #### C EPHEID NEG, COVID19 FLU RSV #### [facility] [address] [id number] [place] Lactate [Moles/volume] in Se rum or PlasmaOrdered By: Jacqui Samayoa on 07-22-2023 Lactate [Moles/Vol] 1.3 mmol/L Normal 0.5-2.2 [facility] Comment on above: Result Comment: PERF ORMED BY: [place] [address]END[address] WENDY CLARK M.D. Performed By: #### T 3F, TSH3, T4F #### [address] Leukocytes [#/volume] correc emily for nucleated erythrocytes in Blood by Automated counOrdered By: Jacqui Samayoa on 07-22-2023 WBC corrected for nucl RBC Auto (Bld) [#/Vol] 9.9 10*3/uL 3.8-11.6 [facility] Leukocytes [#/volume] in Blo od by Automated countOrdered By: Jacqui Samayoa on 07-22-2023 WBC (Bld) [#/Vol] 9.9 10*3/uL Normal 3.8-11.6 [facility] Comment on above: Performed By: #### H S TROP, PTT, BMP, PT, CBC, BNP, CK #### [facility] [address] [place] [address] [place] Lymphocytes [#/volume] in Bl ood by Automated countOrdered By: Jacqui Samayoa on 07-22-2023 Lymphocytes (Bld) [#/Vol] 0.9 10*3/uL Low 1.00-4.8 [facility] Comment on above: Performed By: #### H S TROP, PTT, BMP, PT, CBC, BNP, CK #### [place] [address] [place] Lymphocytes/100 leukocytes i n Blood by Automated countOrdered By: Jacqui Samayoa on 07-22-2023 Lymphocytes/100 WBC (Bld) 8.7 % Normal . [facility] Comment on above: Performed By: #### H S TROP, PTT, BMP, PT, CBC, BNP, CK #### [address] MCH [Entitic mass] by Automa emily countOrdered By: Jacqui Samayoa on 07-22-2023 MCH (RBC) [Entitic mass] 29.7 pg Normal 24.7-34.3 [facility] Comment on above: Performed By: #### H S TROP, PTT, BMP, PT, CBC, BNP, CK #### [address] MCHC Auto (RBC) [Mass/Vol]Or dered By: Jacqui Samayoa on 07-22-2023 MCHC (RBC) [Mass/Vol] 33.7 g/dL 32.0-35.0 [facility] MCV [Entitic volume] by Auto mated countOrdered By: Jacqui Samayoa on 07-22-2023 MCV (RBC) [Entitic vol] 88.2 fL Normal 80-100 [facility] Comment on above: Performed By: #### H S TROP, PTT, BMP, PT, CBC, BNP, CK #### [address] Monocyte distribution width [Entitic volume] in Blood by AutomatedOrdered By: Jacqui Samayoa on 07-22-2023 Monocyte distribution width Auto (Bld) [Entitic vol] 27.10 % 0.00-20.00 [facility] Comment on above: For adults in ED, MD W > 20.0 may be associated with a higher risk of sepsis during the first 12 hrs of hospital admission Neutrophils [#/volume] in Bl ood by Automated countOrdered By: Jacqui Samayoa on 07-22-2023 Neutrophils (Bld) [#/Vol] 8.3 10*3/uL High 1.8-7.7 [facility] Comment on above: Performed By: #### H S TROP, PTT, BMP, PT, CBC, BNP, CK #### [address] No Panel InformationOrdered By: Jacqui Samayoa on 07-22-2023 Estimated GFR (CKD-EPI) > 60.0 mL/Min [facility] Creatinine Clearance (Chem 184.90 [facility] Nucleated erythrocytes [Pres ence] in Blood by Automated countOrdered By: Jacqui Samayoa on 07-22-2023 Nucleated RBC Auto Ql (Bld) 0.0 /100{WBC} 0-0.5 [facility] Partial Thromboplastin Timeo n 07-22-2023 aPTT Coag (Bld) [Time] 29.6 s Normal 25.1-36.5 [facility] Comment on above: Result Comment: A he matocrit value greater than 55% may lead to inaccurate results in coagulation testing. Patients having hematocrit values >55% require a special collection tube for coagulation studies. Please contact the laboratory at [phone] for redraw instructions. PERFORMED BY: [place] [address] WENDY CLARK M.D. Performed By: #### C EPHEID NEG, COVID19 FLU RSV #### [address] Platelet mean volume [Entiti c volume] in Blood by Automated countOrdered By: Jacqui Samayoa on 07-22-2023 Platelet mean volume (Bld) [Entitic vol] 7.7 fL Normal 6.3-10.7 [facility] Comment on above: Performed By: #### H S TROP, PTT, BMP, PT, CBC, BNP, CK #### [address] Platelets [#/volume] in Bloo d by Automated countOrdered By: Jacqui Samayoa on 07-22-2023 Platelets (Bld) [#/Vol] 347 10*3/uL Normal 150-450 [facility] Comment on above: Performed By: #### H S TROP, PTT, BMP, PT, CBC, BNP, CK #### [facility] [address] Potassium [Moles/volume] in Serum or PlasmaOrdered By: Jacqui Samayoa on 07-22-2023 Potassium [Moles/Vol] 3.6 mmol/L Normal 3.5-5.1 [facility] Comment on above: Performed By: #### H S TROP, PTT, BMP, PT, CBC, BNP, CK #### [facility] [address] Prothrombin time (PT)Ordered By: Jacqui Samayoa on 07-22-2023 PT Coag (PPP) [Time] 11.6 s Normal 9.0-12.9 [facility] Comment on above: A hematocrit value g reater than 55% may lead to inaccurate results in coagulation testing. Patients having hematocrit values >55% require a special collection tube for coagulation studies. Please contact the laboratory at [phone] for redraw instructions. Result Comment: A he matocrit value greater than 55% may lead to inaccurate results in coagulation testing. Patients having hematocrit values >55% require a special collection tube for coagulation studies. Please contact the laboratory at [phone] for redraw instructions. Performed By: #### C EPHEID NEG, COVID19 FLU RSV #### [address] Serum or plasma anion gap de terminationOrdered By: Jacqui Samayoa on 07-22-2023 Anion gap [Moles/Vol] 12.5 mmol/L Normal 6.0-15.0 [facility] Comment on above: Performed By: #### H S TROP, PTT, BMP, PT, CBC, BNP, CK #### [address] Sodium [Moles/volume] in Ser um or PlasmaOrdered By: Jacqui Samayoa on 07-22-2023 Sodium [Moles/Vol] 137 mmol/L Normal 136-145 [facility] Comment on above: Performed By: #### H S TROP, PTT, BMP, PT, CBC, BNP, CK #### [facility] [address] [place] [address] Troponin I High Sensitivityo n 07-22-2023 Troponin I High Sensitivity < 2.3 Normal 0.0-15.0 [facility] Comment on above: Result Comment: PERF ORMED BY: [place] [address] WENDY CLARK M.D. Performed By: #### H S TROP, PTT, BMP, PT, CBC, BNP, CK #### [address] Troponin I.cardiac [Mass/vol ume] in Serum or Plasma by Detection limit <= 0.01 ng/Ordered By: Jacqui Samayoa on 07-22-2023 Troponin I.cardiac DL <= 0.01 ng/mL [Mass/Vol] < 2.3 pg/mL 0.0-15.0 [facility] Urea nitrogen [Mass/volume] in Serum or PlasmaOrdered By: Jacqui Samayoa on 07-22-2023 Urea nitrogen [Mass/Vol] 6 mg/dL Low 7-25 [facility] Comment on above: Performed By: #### H S TROP, PTT, BMP, PT, CBC, BNP, CK #### [facility] [address] [place] [address] XR chest 2V*on 07-22-2023 XR chest 2V* [facility] [place] [address] XRay Report Signed Patient: Lupe Pickard MR#: [id number] : 1975 Acct:[id number] Age/Sex: 48 / F ADM Date: 07/22/23 Loc: ER Room: Type: [facility] ER Attending Dr: Copies to: Jacqui Samayoa [...] Ernie Roper M.D.07/22/2023 8:46 AM Dictation Location: [place] [address] Transcribed By: [facility] 07/22/23845 Dictated By: Ernie Roper II, MD 07/22/2344 Signed By: 07/22/23845 Normal [facility] Lo 07-08-2023 CNPN Telephone (RHEUMN) LUPE PICKARD ([id number]) 1975 F Date Time Provider Department 07/08/23 [...] times daily. - FE FUMARATE/CA CARB/VITAMIN D3 ([id number] US FUMARATE ORAL) Take by mouth. - [...] Status:Closed by STEPHIE BRAMBILA on 07/08/23 Normal [facility] COVID Quick Testingon 2023 Result [employer] Other Quick Strepon 07-08-2023 S. pyogenes Org specific cx Ql (Throat) [employer] Other Quick Strep [employer] Other Family Medicine Office/Clini c Noteon 07-01-2023 Family Medicine Office/Clinic Note Chief Complaint OMT HPI Staff Lupe Pickard 48 presents today for neck and back and medications complaints of _Patient here today to F/U Neck and back pain ,asking about Tumeric and probiotoic Pain characteristics: Pain location:neck/ back Intensity:5/10 Onset:years Medication used:norco Opioids prescribed:[facility] handles Medication agreement UTD: _ Urine drug screen performed:_ History of Present Illness 48 Years old Female here to f/u for NECK PAIN Social: The patient is in a long-term relationship with Katie; more than ten years The patient is not currently working; 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 Still interested in stopping [place] at some time. Is interested in medical [...] cervical radicu (more content not included)... Normal [facility] Comment on above: Result Comment: Elec tronically Signed By: Melissa Singh DO\Date and Time Signed: 07/01/23 19:12 [...] pain Your Care Team Attending Physician - Melissa Singh DO Primary Care Physician - Melissa Singh DO This Is Your Medications List Contact prescribing physician if questions or concerns acetaminophen (Tylenol) acetaminophen-hydroc odone ([place] 5/325 Tab) aspirin (aspirin 81 mg oral [...] Cardiology Clinic Tuesday 1:00 PM EST With: Melissa Singh DO Where: [facility] [place] Normal [address] [place] [address]-\.br\ Medications\.br\ What How Much When Why Instructions\.br\ Unchanged acetaminophen (Tylenol) Contact prescribing physician if questions or concerns \.br\ Unchanged acetaminophen-hyd rocodone ([place] 5/ 325 Tab) 2 Tablets Contact prescribing [...] you which one to use.\.br\ ? \.br\ [facility] Patient Educationon 06-28-19 24 Patient Education Physical Medicine and Rehabilitation Heat [...] provider. Document Revised: 03/18/2021 Document Reviewed: 03/18/2021 [employer] Patient Education ? 2022 [employer] [facility] 05-24-2023 CNPN Telephone (ADRY) LUPE PICKARD ([id number]) 1975 F Date Time Provider Department 05/24/23 [...] times daily. - FE FUMARATE/CA CARB/VITAMIN D3 ([id number] US FUMARATE ORAL) Take by mouth. - [...] Status:Closed by STEPHIE BRAMBILA on 05/24/23 Normal [facility] C3 SerPl-mCncon 05-19-2023 Complement C3 [Mass/Vol] 128 mg/dL Normal 86-166 [facility] Comment on above: Order Comment: Speci men Type: BLOOD SPECIMEN Ordering Facility: [facility] Address: [address] [place] [address] Performed By: #### V ITB6 #### [employer] CLIA [id number] [address] [place] [address] C4 SerPl-mCncon 05-19-2023 Complement C4 [Mass/Vol] 32 mg/dL Normal 13-46 [facility] Comment on above: Order Comment: Speci men Type: BLOOD SPECIMEN Ordering Facility: [facility] Address: [address] [place] [address] Performed By: #### V ITB6 #### [facility] CLIA [id number] [address] [place] [address] CBC W Auto Differential pane l (Bld)on 05-19-2023 Basophils (Bld) [#/Vol] 0.03 10*3/uL Normal <0.11 [facility] Comment on above: Order Comment: Speci men Type: BLOOD SPECIMEN Ordering Facility: [facility] Address: [address] [place] [address] Performed By: #### V ITB6 #### [facility] CLIA [id number] [address] [place] [address] Basophils/100 WBC (Bld) 0.3 % Normal [facility] Comment on above: Order Comment: Speci men Type: BLOOD SPECIMEN Ordering Facility: [facility] Address: [address] [place] [address] Performed By: #### V ITB6 #### [facility] CLIA [id number] [address] [place] [address] Differential cell count method Nom (Bld) Auto Normal [facility] Comment on above: Order Comment: Speci men Type: BLOOD SPECIMEN Ordering Facility: [facility] Address: [address] [place] [address] Performed By: #### V ITB6 #### [facility] CLIA [id number] [address] [place] [address] Eosinophils (Bld) [#/Vol] 0.09 10*3/uL Normal <0.46 [facility] Comment on above: Order Comment: Speci men Type: BLOOD SPECIMEN Ordering Facility: [facility] Address: [address] [place] [address] Performed By: #### V ITB6 #### [facility] CLIA [id number] [address] [place] [address] Eosinophils/100 WBC (Bld) 0.8 % Normal [facility] Comment on above: Order Comment: Speci men Type: BLOOD SPECIMEN Ordering Facility: [facility] Address: [address] [place] [address] Performed By: #### V ITB6 #### [facility] CLIA [id number] [address] [place] [address] Erythrocyte distribution width (RBC) [Ratio] 14.7 % Normal 11.5-15.0 [facility] Comment on above: Order Comment: Speci men Type: BLOOD SPECIMEN Ordering Facility: [facility] Address: [address] [place] [address] Performed By: #### V ITB6 #### [facility] CLIA [id number] [address] [place] [address] Hematocrit (Bld) [Volume fraction] 42.6 % Normal 36.0-46.0 [facility] Comment on above: Order Comment: Speci men Type: BLOOD SPECIMEN Ordering Facility: [facility] Address: [address] [place] [address] Performed By: #### V ITB6 #### [facility] CLIA [id number] [address] [place] [address] Hemoglobin (Bld) [Mass/Vol] 14.2 g/dL Normal 11.5-15.5 [facility] Comment on above: Order Comment: Speci men Type: BLOOD SPECIMEN Ordering Facility: [facility] Address: [address] [place] [address] Performed By: #### V ITB6 #### [facility] CLIA [id number] [address] [place] [address] Immature granulocytes (Bld) [#/Vol] 0.04 10*3/uL Normal <0.10 [facility] Comment on above: Order Comment: Speci men Type: BLOOD SPECIMEN Ordering Facility: [facility] Address: [address] [place] [address] Performed By: #### V ITB6 #### [facility] CLIA [id number] [address] [place] [address] Immature granulocytes/100 WBC (Bld) 0.4 % Normal [facility] Comment on above: Order Comment: Speci men Type: BLOOD SPECIMEN Ordering Facility: [facility] Address: [address] [place] [address] Performed By: #### V ITB6 #### [facility] CLIA [id number] [address] [place] [address] Lymphocytes (Bld) [#/Vol] 3.03 10*3/uL Normal 1.00-4.00 [facility] Comment on above: Order Comment: Speci men Type: BLOOD SPECIMEN Ordering Facility: [facility] Address: [address] [place] [address] Performed By: #### V ITB6 #### [facility] [place] [id number] [address] [place] [address] Lymphocytes/100 WBC (Bld) 28.3 % Normal [facility] Comment on above: Order Comment: Speci men Type: BLOOD SPECIMEN Ordering Facility: [facility] Address: [address] [place] [address] Performed By: #### V ITB6 #### [id number] [address] [place] [address] MCH (RBC) [Entitic mass] 29.2 pg Normal 26.0-34.0 [facility] Comment on above: Order Comment: Speci men Type: BLOOD SPECIMEN Ordering Facility: [facility] Address: [address] [place] [address] Performed By: #### V ITB6 #### [facility] IA [id number] [address] [place] [address] MCHC (RBC) [Mass/Vol] 33.3 g/dL Normal 30.5-36.0 [facility] Comment on above: Order Comment: Speci men Type: BLOOD SPECIMEN Ordering Facility: [facility] Address: [address] [place] [address] Performed By: #### V ITB6 #### [facility] IA [id number] [address] [place] [address] MCV (RBC) [Entitic vol] 87.5 fL Normal 80.0-100.0 [facility] Comment on above: Order Comment: Speci men Type: BLOOD SPECIMEN Ordering Facility: [facility] Address: [address] [place] [address] Performed By: #### V ITB6 #### [facility] IA [id number] [address] [place] [address] Monocytes (Bld) [#/Vol] 0.49 10*3/uL Normal <0.87 [facility] Comment on above: Order Comment: Speci men Type: BLOOD SPECIMEN Ordering Facility: [facility] Address: [address] [place] [address] Performed By: #### V ITB6 #### [facility] CLIA [id number] [address] [place] [address] Monocytes/100 WBC (Bld) 4.6 % Normal [facility] Comment on above: Order Comment: Speci men Type: BLOOD SPECIMEN Ordering Facility: [facility] Address: [address] [place] [address] Performed By: #### V ITB6 #### [facility] CLIA [id number] [address] [place] [address] Neutrophils (Bld) [#/Vol] 7.01 10*3/uL Normal 1.45-7.50 [facility] Comment on above: Order Comment: Speci men Type: BLOOD SPECIMEN Ordering Facility: [facility] Address: [address] [place] [address] Performed By: #### V ITB6 #### [facility] CLIA [id number] [address] [place] [address] Neutrophils/100 WBC (Bld) 65.6 % Normal [facility] Comment on above: Order Comment: Speci men Type: BLOOD SPECIMEN Ordering Facility: [facility] Address: [address] [place] [address] Performed By: #### V ITB6 #### [facility] CLIA [id number] [address] [place] [address] Nucleated RBC (Bld) [#/Vol] 10*3/uL Normal <0.01 [facility] Comment on above: Order Comment: Speci men Type: BLOOD SPECIMEN Ordering Facility: [facility] Address: [address] [place] [address] Performed By: #### V ITB6 #### [facility] CLIA [id number] [address] [place] [address] Nucleated RBC/100 WBC (Bld) [Ratio] 0.0 /100 WBC Normal [facility] Comment on above: Order Comment: Speci men Type: BLOOD SPECIMEN Ordering Facility: [facility] Address: [address] [place] [address] Performed By: #### V ITB6 #### [facility] [place] [id number] [address] [place] [address] Platelet mean volume (Bld) [Entitic vol] 9.1 fL Normal 9.0-12.7 [facility] Comment on above: Order Comment: Speci men Type: BLOOD SPECIMEN Ordering Facility: [facility] Address: [address] [place] [address] Performed By: #### V ITB6 #### [facility] IA [id number] [address] [place] [address] Platelets (Bld) [#/Vol] 364 10*3/uL Normal 150-400 [facility] Comment on above: Order Comment: Speci men Type: BLOOD SPECIMEN Ordering Facility: [facility] Address: [address] [place] [address] Performed By: #### V ITB6 #### [id number] [address] [place] [address] RBC (Bld) [#/Vol] 4.87 10*6/uL Normal 3.90-5.20 [facility] Comment on above: Order Comment: Speci men Type: BLOOD SPECIMEN Ordering Facility: [facility] Address: [address] [place] [address] Performed By: #### V ITB6 #### [id number] [address] [place] [address] WBC (Bld) [#/Vol] 10.69 10*3/uL Normal 3.70-11.00 [facility] Comment on above: Order Comment: Speci men Type: BLOOD SPECIMEN Ordering Facility: [facility] Address: [address] [place] [address] Performed By: #### V ITB6 #### [id number] [address] [place] [address] Centromere Ab IF Ql (S)on Centromere Ab Qn (S) <0.2 Normal <1.0 [facility] Comment on above: Order Comment: Speci men Type: BLOOD SPECIMEN Ordering Facility: [facility] Address: [address] [place] [address] Result Comment: Anti -centromere antibody is used as in aid in diagnosis of systemic sclerosis. Clinical correlation is required. Test Methodology: Multiplex flow immunoassay. Performed By: #### 5 1775-5, 44073-1, 43068-4, 32853-3, 03731-9, 06133-2, 75883-5, 12495-1 #### [facility] CLIA [id number] [address] [place] [address] [place] CENTROMERE AB QUAL Negative Normal Negative [facility] Comment on above: Order Comment: Speci men Type: BLOOD SPECIMEN Ordering Facility: [facility] Address: [address] [place] [address] Performed By: #### 5 1775-5, 79181-5, 94980-4, 13428-2, 78898-1, 94351-4, 39708-4, 54948-8 #### [facility] CLIA [id number] [address] [place] [address] [place] Chromatin Ab Qnon 05-19-2023 CHROMATIN AB QUAL Negative Normal Negative [facility] Comment on above: Order Comment: Speci men Type: BLOOD SPECIMEN Ordering Facility: [facility] Address: [address] [place] [address] Performed By: #### 5 1775-5, 03276-6, 85283-1, 92658-3, 52022-1, 80780-1, 28221-4, 24067-1 #### [facility] CLIA [id number] [address] [place] [address] [place] Chromatin Ab SerPl-aCncon Chromatin Ab Qn <0.2 Normal <1.0 [facility] Comment on above: Order Comment: Speci men Type: BLOOD SPECIMEN Ordering Facility: [facility] Address: [address] [place] [address] Result Comment: Test Methodology: Multiplex flow immunoassay. Performed By: #### 5 1775-5, 54444-8, 09484-0, 02552-9, 05179-8, 16905-2, 71990-9, 05354-2 #### [facility] CLIA [id number] [address] [facility] [id number] [address] [place] Comprehensive metabolic 2000 panelon 05-19-2023 Albumin [Mass/Vol] 4.1 g/dL Normal 3.9-4.9 [facility] Comment on above: Order Comment: Speci men Type: BLOOD SPECIMEN Ordering Facility: [facility] Address: [address] [place] [address] Performed By: #### V ITB6 #### [facility] CLIA [id number] [address] [place] [address] ALP [Catalytic activity/Vol] 62 U/L Normal 34-123 [facility] Comment on above: Order Comment: Speci men Type: BLOOD SPECIMEN Ordering Facility: [facility] Address: [address] [place] [address] Performed By: #### V ITB6 #### [facility] IA [id number] [address] [place] [address] ALT [Catalytic activity/Vol] 19 U/L Normal 7-38 [facility] Comment on above: Order Comment: Speci men Type: BLOOD SPECIMEN Ordering Facility: [facility] Address: [address] [place] [address] Performed By: #### V ITB6 #### [facility] IA [id number] [address] [place] [address] Anion gap [Moles/Vol] 9 mmol/L Normal 9-18 [facility] Comment on above: Order Comment: Speci men Type: BLOOD SPECIMEN Ordering Facility: [facility] Address: [address] [place] [address] Performed By: #### V ITB6 #### [facility] CLIA [id number] [address] [place] [address] AST [Catalytic activity/Vol] 10 U/L Low 13-35 [facility] Comment on above: Order Comment: Speci men Type: BLOOD SPECIMEN Ordering Facility: [facility] Address: [address], [place] [address] Performed By: #### V ITB6 #### [facility] CLIA [id number] [address] [place] [address] Bilirubin [Mass/Vol] 0.2 mg/dL Normal 0.2-1.3 [facility] Comment on above: Order Comment: Speci men Type: BLOOD SPECIMEN Ordering Facility: [facility] Address: [address] [place] [address] Performed By: #### V ITB6 #### [facility] CLIA [id number] [address] [place] [address] Calcium [Mass/Vol] 9.2 mg/dL Normal 8.5-10.2 [facility] Comment on above: Order Comment: Speci men Type: BLOOD SPECIMEN Ordering Facility: [facility] Address: [address] [place] [address] Performed By: #### V ITB6 #### [facility] CLIA [id number] [address] [place] [address] Chloride [Moles/Vol] 106 mmol/L High 97-105 [facility] Comment on above: Order Comment: Speci men Type: BLOOD SPECIMEN Ordering Facility: [facility] Address: [address] [place] [address] Performed By: #### V ITB6 #### [facility] CLIA [id number] [address] [place] [address] CO2 [Moles/Vol] 27 mmol/L Normal 22-30 [facility] Comment on above: Order Comment: Speci men Type: BLOOD SPECIMEN Ordering Facility: [facility] Address: [address] [place] [address] Performed By: #### V ITB6 #### [facility] CLIA [id number] [address] [place] [address] Creatinine [Mass/Vol] 0.65 mg/dL Normal 0.58-0.96 [facility] Comment on above: Order Comment: Speci men Type: BLOOD SPECIMEN Ordering Facility: [facility] Address: [address] [place] [address] Performed By: #### V ITB6 #### [facility] CLIA [id number] [address] [place] [address] Creatinine and Glomerular filtration rate.predicted panel (S/P/Bld) 110 mL/min/1.73m??? Normal >=60 [facility] Comment on above: Order Comment: Nicky crawley Type: BLOOD SPECIMEN Ordering Facility: [facility] Address: [address] [place] [address] Result Comment: Anne mated Glomerular Filtration Rate [...] GFR. Performed By: #### V ITB6 #### [facility] [id number] [address] [place] [address] Glucose [Mass/Vol] 105 mg/dL High 74-99 [facility] Comment on above: Order Comment: Nicky crawely Type: BLOOD SPECIMEN Ordering Facility: [facility] Address: [address] [place] [address] Result Comment: The [place] [employer] (ADA) provides guidance for cutoff [...] Standards of Medical Care in Diabetes 2016, [place] [employer]. Diabetes Care. 2016.39(Suppl 1). Performed By: #### V ITB6 #### [facility] [id number] [address] [place] [address] Potassium [Moles/Vol] 4.3 mmol/L Normal 3.7-5.1 [facility] Comment on above: Order Comment: Nicky crawley Type: BLOOD SPECIMEN Ordering Facility: [facility] Address: [address] [place] [address] Performed By: #### V ITB6 #### [facility] CLIA [id number] [address] [place] [address] Protein [Mass/Vol] 6.7 g/dL Normal 6.3-8.0 [facility] Comment on above: Order Comment: Speci men Type: BLOOD SPECIMEN Ordering Facility: [facility] Address: [address] [place] [address] Performed By: #### V ITB6 #### [facility] CLIA [id number] [address] [place] [address] Sodium [Moles/Vol] 142 mmol/L Normal 136-144 [facility] Comment on above: Order Comment: Speci men Type: BLOOD SPECIMEN Ordering Facility: [facility] Address: [address] [place] [address] Performed By: #### V ITB6 #### [id number] [address] [place] [address] Urea nitrogen [Mass/Vol] 17 mg/dL Normal 7-21 [facility] Comment on above: Order Comment: Speci men Type: BLOOD SPECIMEN Ordering Facility: [facility] Address: [address] [place] [address] Performed By: #### V ITB6 #### [id number] [address] [place] [address] DNA ANTIBODY DS BLDon 2022 DNA ANTIBODY 25 IU/mL Normal <=200 [facility] Comment on above: Order Comment: Speci men Type: BLOOD SPECIMEN Ordering Facility: [facility] Address: [address] [place] [address] Performed By: #### V ITB6 #### [facility] CLIA [id number] [address] [place] [address] DNA ANTIBODY QUALITATIVE INTERPRETATION Negative Normal Negative [facility] Comment on above: Order Comment: Speci men Type: BLOOD SPECIMEN Ordering Facility: [facility] Address: [address] [place] [address] Performed By: #### V ITB6 #### [facility] CLIA [id number] [address] [place] [address] MARCIO Jo1 Ab Ser-aCncon 2022 Elsa-1 extractable nuclear Ab Qn (S) <0.2 Normal <1.0 [facility] Comment on above: Order Comment: Speci men Type: BLOOD SPECIMEN Ordering Facility: [facility] Address: [address] [place] [address] Performed By: #### 5 5-5, 04779-8, 86950-4, 57237-5, 30519-9, 39589-0, 59646-8, 36059-6 #### [facility] CLIA [id number] [address] [place] [address] [place] MARCIO GAS DERRICK OPERATOR Ab Ser-aCncon 2022 Ribonucleoprotein extractable nuclear Ab Qn (S) <0.2 Normal <1.0 [facility] Comment on above: Order Comment: Speci men Type: BLOOD SPECIMEN Ordering Facility: [facility] Address: [address] [place] [address] Performed By: #### 5 1774-5, 92415-4, 93281-5, 10536-6, 01258-9, 65333-6, 33674-1, 35411-2 #### [facility] CLIA [id number] [address] [place] [address] [place] Ribonucleoprotein extractable nuclear Ab Qn (S) 0.2 AI Normal <1.0 [facility] Comment on above: Order Comment: Speci men Type: BLOOD SPECIMEN Ordering Facility: [facility] Address: [address] [place] [address] Performed By: #### V ITB6 #### [facility] CLIA [id number] [address] [place] [address] MARCIO SM IgG Ser-aCncon 2022 Lobo extractable nuclear IgG Qn (S) <0.2 Normal <1.0 [facility] Comment on above: Order Comment: Speci men Type: BLOOD SPECIMEN Ordering Facility: [facility] Address: [address] [place] [address] Performed By: #### 5 1775-5, 30762-1, 76930-9, 77622-7, 85077-0, 76463-1, 38327-7, 23231-9 #### [facility] CLIA [id number] [address] [place] [address] [place] MARCIO SS-A Ab Ser-aCncon 05-19 Sjogrens syndrome-A extractable nuclear Ab Qn (S) <0.2 Normal <1.0 [facility] Comment on above: Order Comment: Speci men Type: BLOOD SPECIMEN Ordering Facility: [facility] Address: [address] [place] [address] Result Comment: Test Methodology: Multiplex flow immunoassay. Performed By: #### 5 1775-5, 23237-8, 21328-4, 34453-7, 50608-0, 84349-5, 41596-8, 88825-2 #### [facility] CLIA [id number] [address] [place] [address] [place] MARCIO SS-B Ab Ser-aCncon 05-19 Sjogrens syndrome-B extractable nuclear Ab Qn (S) <0.2 Normal <1.0 [facility] Comment on above: Order Comment: Speci men Type: BLOOD SPECIMEN Ordering Facility: [facility] Address: [address] [place] [address] Result Comment: Anti -SSB (anti-La) antibody is used as an aid in diagnosis of a variety of systemic autoimmune diseases, especially for Sjogren's syndrome and systemic lupus erythematosus. Clinical correlation is required. Test Methodology: Multiplex flow immunoassay. Performed By: #### 5 1775-5, 72476-0, 13748-6, 11136-4, 16541-6, 53754-0, 94354-5, 20581-0 #### [facility] CLIA [id number] [facility] [place] [address] [place] [facility]20 23 Folate [Mass/Vol] 13.0 ng/mL Normal >4.7 [facility] Comment on above: Order Comment: Nicky crawley Type: BLOOD SPECIMEN Ordering Facility: [facility] Address: [address] [place] [address] Performed By: #### V ITB6 #### [facility] CL[facility] [id number] [address] [place] [address] Elsa-1 extractable nuclear Ab Qn (S)on 05-19-2023 ELSA 1 ANTIBODY QUAL Negative Normal Negative [facility] Comment on above: Order Comment: Nicky crawley Type: BLOOD SPECIMEN Ordering Facility: [facility] Address: [address] [place] [address] Result Comment: Anti -ELSA-1 antibody is used as an aid in diagnosis of polymyositis and dermatomyositis especially with pulmonary involvement. A negative result cannot rule out polymyositis or dermatomyositis. Clinical correlation is required. Test Methodology: Multiplex flow immunoassay. Performed By: #### 5 1775-5, 50481-2, 19775-3, 79172-2, 17464-8, 94573-5, 62083-0, 27023-4 #### [facility] CLIA [id number] [address] [place] [address] [facility] Ribonucleoprotein extractabl e nuclear Ab Qn (S)on 05-19-2023 ANTI-GAS DERRICK OPERATOR QUAL Negative Normal Negative [facility] Comment on above: Order Comment: Nicky crawley Type: BLOOD SPECIMEN Ordering Facility: [facility] Address: [address] [place] [address] Performed By: #### V ITB6 #### [facility] [id number] [address] [place] [address] RIBOSOMAL GAS DERRICK OPERATOR QUAL Negative Normal Negative [facility] Comment on above: Order Comment: Nicky crawley Type: BLOOD SPECIMEN Ordering Facility: [facility] Address: [address] [place] [address] Result Comment: Anti -Ribosomal RNA (Ribosomal P) antibody is used as an aid in diagnosis of systemic autoimmune diseases especially systemic lupus erythematosus and mixed connective tissue disease. Cross-reactivity with Anti-lobo antibody is not uncommon. Clinical correlation is required. Test Methodology: Multiplex flow immunoassay. Performed By: #### 5 1775-5, 21623-6, 79084-1, 16349-5, 76717-8, 59110-0, 85385-1, 62143-8 #### [facility] CLIA [id number] [address] [place] [address] [place] SCL-70 extractable nuclear I gG IA Qn (S)on 05-19-2023 SCLERODERMA AB QUAL Negative Normal Negative [facility] Comment on above: Order Comment: Speci men Type: BLOOD SPECIMEN Ordering Facility: [facility] Address: [address] [place] [address] Performed By: #### 5 1775-5, 97508-2, 01400-3, 70456-1, 30946-9, 76761-7, 46325-5, 91041-0 #### [facility] CLIA [id number] [address] [place] [address] [place] SCLERODERMA IGG AB <0.2 Normal <1.0 [facility] Comment on above: Order Comment: Speci men Type: BLOOD SPECIMEN Ordering Facility: [facility] Address: [address] [place] [address] Result Comment: Scl- 70/Scleroderma antibody test is used as an aid in diagnosis of systemic sclerosis especially the diffuse cutaneous form. A negative result cannot rule out systemic sclerosis. The final interpretation should consider clinical picture and other test results such as anti-centromere antibody. Test Methodology: Multiplex flow immunoassay. Performed By: #### 5 1775-5, 54010-1, 62820-0, 47352-5, 69649-0, 16470-7, 04471-3, 06468-0 #### [facility] CLIA [id number] [address] [place] [address] [place] Sjogrens syndrome-A extracta ble nuclear Ab Qn (S)on 05-19-2023 SSA ANTIBODY QUAL Negative Normal Negative [facility] Comment on above: Order Comment: Speci men Type: BLOOD SPECIMEN Ordering Facility: [facility] Address: [address] [place] [address] Performed By: #### 5 1775-5, 65118-7, 02349-1, 00323-7, 11748-7, 63562-6, 12014-8, 20982-3 #### [facility] CLIA [id number] [address] [place] [address] [place] Sjogrens syndrome-B extracta ble nuclear Ab Qn (S)on 05-19-2023 SSB ANTIBODY QUAL Negative Normal Negative [facility] Comment on above: Order Comment: Speci men Type: BLOOD SPECIMEN Ordering Facility: [facility] Address: [address] [place] [address] Performed By: #### 5 5-5, 59789-4, 94344-3, 78654-9, 52983-1, 79910-1, 51950-2, 02430-8 #### [facility] CLIA [id number] [address] [place] [address] [place] Lobo extractable nuclear Ig G Qn (S)on 05-19-2023 SM ANTIBODY QUAL Negative Normal Negative [facility] Comment on above: Order Comment: Speci men Type: BLOOD SPECIMEN Ordering Facility: [facility] Address: [address] [place] [address] Result Comment: Anti -Sm (Lobo) antibody is used as an aid in diagnosis of systemic lupus erythematosus and its presence is associated with renal disease. A negative result cannot rule out systemic lupus erythematosus. Clinical correlation is required. Test Methodology: Multiplex flow immunoassay. Performed By: #### 5 5-5, 03168-0, 23885-3, 13079-0, 58114-2, 53938-9, 52068-0, 92279-2 #### [facility] CLIA [id number] [address] [place] [address] [place] VITAMIN B6/PYRIDOXINon 05-19 VITAMIN B6 169.1 nmol/L High 20.0-125.0 [facility] Comment on above: Order Comment: Speci men Type: BLOOD SPECIMEN Ordering Facility: [facility] Address: [address] [place] [address] Result Comment: INTE RPRETIVE INFORMATION: Vitamin B6 (Pyridoxal 5-Phosphate) Pyridoxal 5'-phosphate measured in a specimen collected following an 8-hour or overnight fast accurately indicates vitamin B6 nutritional status. Non-fasting specimen concentration reflects recent vitamin intake. This test was developed and its performance characteristics determined by [facility] [employer] It has not been cleared or approved by the US Food and Drug Administration. This test was performed in a CLIA certified laboratory and is intended for clinical purposes. Performed By: [facility] [address] [place] [address] Ap Processor: Greg Wong MD, PhD CLIA Number: [id number] Performed By: #### V ITB6 #### [facility] CLIA [id number] [address] [place] [address] Vit B12 [facility] 023 Cobalamin (Vitamin B12) [Mass/Vol] 412 pg/mL Normal 232-1245 [facility] Comment on above: Order Comment: Nicky crawley Type: BLOOD SPECIMEN Ordering Facility: [facility] Address: [place] [address] Performed By: #### V ITB6 #### [id number] [address] [place] [address] CNOVon 05-17-2023 CNOV Office Visit (ADRY) LUPE PICKARD ([id number]) 1975 F Date Time Provider Department 05/17/23 2:00 PM STEPHIE BRAMBILA During your visit today, we recorded the following information about you: Pulse Respiration Blood pressure Weight 70/minute 18/minute 144/81 121.8 kg Stephie Brambila MD 05/17/2023 2:50 PM Signed [facility] Date of Service: 05/17/2023 Patient: Lupe Pickard Medical Record: [id number] Last Rheumatology visit: None at [facility] History of Present Illness Lupe Pickard is [...] uses heat/ice, massage which helps. She takes [place] 5mg that does not do much for [...] 10 years. 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 Family History: No known FH of autoimmune [...] mg ta (more content not included)... Normal [facility] Office/Clini c Noteon 05-10-2023 Family Medicine Office/Clinic [...] taking BID still takes Tylenol BID and [place] BID - inconsistent benefit - feels her body is getting used to it and it is helping less. still interested in stopping [place] at some point. Waiting for marijuana to become available again. neck pain 7/10 today localized to right side described as constant ache no aggravating or relieving factors. [place]/Tylenol provide inconsistent benefit. helps for a little [...] few times a month. increased CRP. seeing road builder next Tuesday colonoscopy done at [facility] on - note unavailable from last note: [...] movement n (more content not included)... Normal [facility] Comment on above: Result Comment: Elec tronically Signed By: Melissa Singh DO\.br\Date and Time Signed: 05/10/23 19:24 [...] them backward. ? Do not sit or pullboat engineer one place for long periods of time. [...] pain medicine, or muscle relaxants. ? Take uyao-ywj-kwaqoyn and prescription medicines only as told by your doctor. ? Ask your doctor if the medicine prescribed to you: ? Requires you to avoid driving or using machinery. ? Can cause trouble pooping (constipation). You may need to take these actions to prevent or treat trouble pooping: ? Drink enough fluid to keep your pee (urine) pale yellow. ? Take kkut-lba-ywpyhhf or prescription medicines. ? Eat foods that [...] provider. Document Revised: 06/25/2020 Document Reviewed: 06/25/2020 Elsevier Patient Education ? 2022 [employer]. [employer] HR [facility] Family Medicine Office/Clini c Noteon [...] no change to the rash seen in [facility] urgent care on 03/27 - rec'd a [...] Appt. Date: 05/03/2023 1:00 PM Scheduled Provider: Melissa Singh DO [address] [place], [place], [id number] Phone: -- Fax: -- [facility] Quinn Appt. Date: 11/16/2023 [...] 1 month (more content not included)... Normal [facility] Comment on above: Result Comment: Elec tronically Signed By: Melissa Singh DO\.chanel\Date and Time Signed: 04/15/23 13:41 EST Consent for Treatmenton 03-30 Consent for Treatment [id number] #1.00TIFF Normal [facility] Heart and Vascular Office/Cl inic [...] with voice recognition artificial intelligence software, specifically Pluralsight, Prescribe Wellness and or MegaPath. Substitutions may have occurred due to the inherent limitations of voice recognition and artificial intelligence software. Follow-up With When Contact Information SANTY PELAYO, Franklny Arias Within [address] [place] [phone] Additional Instructions: Problem List/Past Medical History Ongoing Anxiety Atopic dermatitis Autoimmune disorder BMI 40.0-44.9, adult Butterfly rash Chronic bilateral low back pain Chronic insomnia Diffuse arthralgia Establishing care with new doctor, encounter for Exercise counseling Fibromyalgia GERD (gastroesophageal reflux disease) Medication management Moderate recurrent major depression Morbid obesity Nutritional counseling Other specified hypothyroidism Overactive bladder Palpitati (more content not included)... Normal [facility] Comment on above: Result Comment: Elec tronically Signed By: Roula SAEED CNP\.br\Date and Time Signed: 04/11/23 11:37 EST\.br\Electronically Co-Signed By: Brayan PELAYO, Owen Brown\.br\Date and Time Co-Signed: 04/24/23 21:03 EST Outside Recordson 04-11-2023 Outside Records [id number]#1.00TIFF Normal [facility] Physician Orderon 04-11-2023 Physician Order [id number] 6#1.00TIFF Normal [facility] Event Monitoron 04-07-2023 Event Monitor [id number] #1.00TIFF Normal [facility] Lab Reportson 03-31-2023 Lab Reports [id number] #1.00TIFF Normal [facility] WILL with Reflexon 03-29-2023 WILL with Reflex Negative Normal Negative [facility] Comment on above: Result Comment: Perf ormed at: CB - [facility] [place] [address] Client Services Administrator: Ramirez Ca PhD, Phone: [phone] Performed By: #### T 3F, TSH3, T4F #### [address] C reactive protein [Mass/vol ume] in Serum or Plasma by High sensitivity methodOrdered By: Becky Aguirre on 03-29-2023 CRP High sensitivity method [Mass/Vol] 4.6 mg/L 0.0-0.9 [facility] Comment on above: Cardiovascular Risk Classification [...] (Bld) [Velocity] 14 mm/h Normal 0-19 [facility] Comment on above: Result Comment: PERF ORMED BY: [address] [place] [address] WENDY CLARK M.D. Performed By: #### T 3F, TSH3, T4F #### [address] [address] [facility] Erythrocyte sedimentation ra te by Photometric methodOrdered By: Becky Aguirre on 03-29-2023 ESR Photometric method (Bld) [Velocity] 14 mm/hr 0-19 [facility] Folateon 03-29-2023 Folate 32.0 ng/mL Normal >5.9 [facility] Comment on above: Result Comment: Janel te reference range: >5.9 ng/ml The WHO technical consultation on folate and vitamin b12 deficiencies has determined that folate concentrations less than 4 ng/ml are considered deficient. PERFORMED BY: [address] [place] [address] WENDY CLARK M.D. Performed By: #### T 3F, TSH3, T4F #### [place] [id number] [facility] High Sensitive CRPon 023 High Sensitive CRP 4.6 mg/L High 0.0-0.9 [facility] Comment on above: Result Comment: [...] for estimation of CVD risk. PERFORMED BY: [address] [place] [id number] PATH[address]IST [address] ATTENDANT WENDY CLARK M.D. Performed By: #### T 3F, TSH3, T4F #### [facility] [address] [place] [id number] [facility] 03-29-2023 L Specimen: [id number] Received: 03/29/23 Status: ALEXA Bauer Num: [id number] Spec Type: Surgical Subm Dr: Beny Alvarez MD Tissues: A Duodenum - Biopsy (DUODENAL BX) Procedures: HE/Yancy, Gross/Micro L4 Age/ Patient Sex Location Account Attending Physician Lupe Pickard 47/F [id number] Beny Alvarez MD SPEC NUM: [id number] RECD: 03/29/23 STATUS: ALEXA BAUER NUM: [id number] NARINDER: 03/29/23 DR: Beny Alvarez MD ENTERED: 03/29/23 [facility] DR: SPEC TYPE: Surgical DEPT: [facility] BY: [id number] ORDERED: HE/2, Gross/Micro L4 ORDERED: HE/2, Gross/Micro [...] microscopic examination confirms the diagnosis. CPT Codes 66906 Specimen: [id number] Received: 03/29/23 Status: ALEXA Bauer Num: [id number] Spec Type: Surgical Subm Dr: Beny Alvarez MD Tissues: A Duodenum - Biopsy (DUODENAL BX) Procedures: HE/2, Gross/Micro L4 Patient: Lupe Pickard [id number] (Continued) Signed (signature on file) Antoine Sigala MD 03/30/23 1258 Normal [facility] Lab Reportson 03-29-2023 Lab Reports [id number] #1.00TIFF Normal [facility] Lab Reports [id number] #1.00TIFF Normal [facility] Lyme, Total Ab with Reflexon 03-29-2023 Lyme Total Antibody Negative Normal Negative [facility] Comment on above: Result Comment: [...] 14 days is recommended. Performed at: - [address] [id number] Client Services Administrator: Ramirez Ca PhD, Phone: [phone] PERFORMED BY: [place] [address] WENDY CLARK M.D. Performed By: #### T 3F, TSH3, T4F #### [address] Outside Colonoscopyon 2022 Outside Colonoscopy [id number] #1.00TIFF Normal [facility] Correspo ndenceon 03-29-2023 Outside [facility] Correspondence [id number] #1.00TIFF Normal [facility] Protein Electrophoresis, Ser umon 03-29-2023 Albumin [Mass/Vol] 3.5 g/dL Normal 2.9-4.4 [facility] Comment on above: Performed By: #### T 3F, TSH3, T4F #### [facility] [address] [place] [address] [place] Albumin/Globulin [Mass ratio] 1.1 {ratio} Normal 0.7-1.7 [facility] Comment on above: Performed By: #### T 3F, TSH3, T4F #### [place] [address] [place] Jwpqz-9-Inlqhjpq 0.3 g/dL Normal 0.0-0.4 [facility] Comment on above: Performed By: #### T 3F, TSH3, T4F #### [facility] [address] [place] [address] [place] Zjnlk-7-Rjaiiktz 0.8 g/dL Normal 0.4-1.0 [facility] Comment on above: Performed By: #### T 3F, TSH3, T4F #### [place] [address] [place] Beta Globulin 1.0 g/dL Normal 0.7-1.3 [facility] Comment on above: Performed By: #### T 3F, TSH3, T4F #### [facility] [address] [place] [id number] [place] Gamma Globulin 1.1 g/dL Normal 0.4-1.8 [facility] Comment on above: Performed By: #### T 3F, TSH3, T4F #### [facility] [address] [place] [id number] [place] Globulin (S) [Mass/Vol] 3.2 g/dL Normal 2.2-3.9 [facility] Comment on above: Performed By: #### T 3F, TSH3, T4F #### [address] M-Chacorta Not Observed Normal Not Observed [facility] Comment on above: Performed By: #### T 3F, TSH3, T4F #### [facility] [address] Protein [Mass/Vol] 6.7 g/dL Normal 6.0-8.5 [facility] Comment on above: Performed By: #### T 3F, TSH3, T4F #### [address] SPE-Note Normal . [facility] Comment on above: Result Comment: Prot ein electrophoresis scan will follow via computer, mail, or resources representative delivery. Performed at: [facility] [place] [address] Client Services Administrator: Ramirez Ca PhD, Phone: [phone] Performed By: #### T 3F, TSH3, T4F #### [address] Rheumatoid Factoron 03-29-20 23 Rheumatoid Factor 10.8 Normal <14.0 [facility] Comment on above: Result Comment: Perf ormed at: [facility] [place] [address] Client Services Administrator: Ramirez Ca PhD, Phone: [phone] Performed By: #### T 3F, TSH3, T4F #### [address] Vitamin B12 ser/plasOrdered By: Becky Aguirre on 03-29-2023 Cobalamin (Vitamin B12) [Mass/Vol] 464 pg/mL Normal 180-914 [facility] Comment on above: Performed By: #### T 3F, TSH3, T4F #### [address] Family Medicine Office/Clini c Noteon 03-28-2023 Family [...] done Wellness: Due Recent labs: [facility] results scanned in chart History of [...] body is itching as well. Went to [facility] yesterday and received a Kenalog shot, and [...] hydrocortisone cream (more content not included)... Normal [facility] Comment on above: Result Comment: Sylvester lópez Signed By: BECKY GUTIERRES\Date and Time Signed: 03/28/23 14:29 EDT Patient [...] these instructions at home: Medicines ? Take rnuu-fhg-nbchehp and prescription medicines only as told by [...] Where to find more information ? National Rake of Allergy and Infectious Disease: www.niaid.nih.gov Contact [...] nausea o (more content not included)... Normal [facility] Lab Reportson 03-25-2023 Lab Reports [id number]# 1.00TIFF Normal [facility] Lab Reportson 03-18-2023 Lab Reports [id number] #1.00TIFF Normal [facility] Lab Reports [id number] #1.00TIFF Normal [facility] Alanine aminotransferase [En zymatic activity/volume] in Serum or PlasmaOrdered By: Radha Mcintosh on 03-17-2023 ALT [Catalytic activity/Vol] 13 U/L Normal 7-52 [facility] Comment on above: Order Comment: Reaso n for Exam Generalized Anxiety Disorder (SANDRA);Medication management Performed By: #### C EPHEID NEG, COVID19 FLU RSV #### [address] Albumin [Mass/volume] in Ser um or Plasma by Bromocresol green (BCG) dye binding methoOrdered By: Radha Mcintosh on 03-17-2023 Albumin BCG dye [Mass/Vol] 4.2 g/dL 3.5-5.7 [facility] Alkaline phosphatase [Enzyma tic activity/volume] in Serum or PlasmaOrdered By: Radha Mcintosh on 03-17-2023 ALP [Catalytic activity/Vol] 66 U/L Normal 34-104 [facility] Comment on above: Order Comment: Reaso n for Exam Generalized Anxiety Disorder (SANDRA);Medication management Result Comment: PERF ORMED BY: [facility] [address] [place] [address]END[address] WENDY CLARK M.D. Performed By: #### C EPHEID NEG, COVID19 FLU RSV #### [address] Aspartate aminotransferase [ Enzymatic activity/volume] in Serum or PlasmaOrdered By: Radha Mcintosh on 03-17-2023 AST [Catalytic activity/Vol] 11 U/L Low 13-39 [facility] Comment on above: Order Comment: Reaso n for Exam Generalized Anxiety Disorder (SANDRA);Medication management Performed By: #### C EPHEID NEG, COVID19 FLU RSV #### [address] Automated basophil %Ordered By: Radha Mcintosh on 03-17-2023 Basophils/100 WBC (Bld) 0.8 % Normal . [facility] Comment on above: Order Comment: Reaso n for Exam Generalized Anxiety Disorder (SANDRA);Medication management Performed By: #### C EPHEID NEG, COVID19 FLU RSV #### [address] Automated basophil countOrde red By: Radha Mcintosh on 03-17-2023 Basophils (Bld) [#/Vol] 0.1 10*3/uL Normal 0.0-0.2 [facility] Comment on above: Order Comment: Reaso n for Exam Generalized Anxiety Disorder (SANDRA);Medication management Result Comment: PERF ORMED BY: [place] [address]END[address] WENDY CLARK M.D. Performed By: #### C EPHEID NEG, COVID19 FLU RSV #### [address] Automated blood monocyte cou ntOrdered By: Radha Mcintosh on 03-17-2023 Monocytes (Bld) [#/Vol] 0.5 10*3/uL Normal 0.0-0.8 [facility] Comment on above: Order Comment: Reaso n for Exam Generalized Anxiety Disorder (SANDRA);Medication management Performed By: #### C EPHEID NEG, COVID19 FLU RSV #### [facility] [address] Automated eosinophil %Ordere d By: Radha Mcintosh on 03-17-2023 Eosinophils/100 WBC (Bld) 1.5 % Normal . [facility] Comment on above: Order Comment: Reaso n for Exam Generalized Anxiety Disorder (SANDRA);Medication management Performed By: #### C EPHEID NEG, COVID19 FLU RSV #### [facility] [address] [place] [address] Automated eosinophil countOr dered By: Radha Mcintosh on 03-17-2023 Eosinophils (Bld) [#/Vol] 0.1 10*3/uL Normal 0.0-0.45 [facility] Comment on above: Order Comment: Reaso n for Exam Generalized Anxiety Disorder (SANDRA);Medication management Performed By: #### C EPHEID NEG, COVID19 FLU RSV #### [address] Automated monocyte %Ordered By: Radha Mcintosh on 03-17-2023 Monocytes/100 WBC (Bld) 5.5 % Normal . [facility] Comment on above: Order Comment: Reaso n for Exam Generalized Anxiety Disorder (SANDRA);Medication management Performed By: #### C EPHEID NEG, COVID19 FLU RSV #### [address] Automated neutrophil %Ordere d By: Radha Mcintosh on 03-17-2023 Neutrophils/100 WBC (Bld) 62.8 % Normal . [facility] Comment on above: Order Comment: Reaso n for Exam Generalized Anxiety Disorder (SANDRA);Medication management Performed By: #### C EPHEID NEG, COVID19 FLU RSV #### [facility] [address] [place] [address] Bilirubin.total [Mass/volume ] in Serum or PlasmaOrdered By: Radha Mcintosh on 03-17-2023 Bilirubin [Mass/Vol] 0.3 mg/dL Normal 0.3-1.0 [facility] Comment on above: Order Comment: Reaso n for Exam Generalized Anxiety Disorder (SANDRA);Medication management Performed By: #### C EPHEID NEG, COVID19 FLU RSV #### [address] Calcium [Mass/volume] in Ser um or PlasmaOrdered By: Melissa Singh on 03-17-2023 Calcium [Mass/Vol] 9.0 mg/dL Normal 8.6-10.3 [facility] Comment on above: Performed By: #### C EPHEID NEG, COVID19 FLU RSV #### [address] Carbon dioxide, total [Moles /volume] in Serum or PlasmaOrdered By: Radha Mcintosh on 03-17-2023 CO2 [Moles/Vol] 27.5 mmol/L Normal 21.0-31.0 [facility] Comment on above: Order Comment: Reaso n for Exam Generalized Anxiety Disorder (SANDRA);Medication management Performed By: #### C EPHEID NEG, COVID19 FLU RSV #### [address] Chloride [Moles/volume] in S zakia or PlasmaOrdered By: Radha Mcintosh on 03-17-2023 Chloride [Moles/Vol] 104 mmol/L Normal 98-107 [facility] Comment on above: Order Comment: Reaso n for Exam Generalized Anxiety Disorder (SANDRA);Medication management Performed By: #### C EPHEID NEG, COVID19 FLU RSV #### [address] Complete Blood Count Auto Di ffon 03-17-2023 Mean Corpuscular HGB Conc 33.3 g/dL Normal 32.0-35.0 [facility] Comment on above: Order Comment: Reaso n for Exam Generalized Anxiety Disorder (SANDRA);Medication management Performed By: #### C EPHEID NEG, COVID19 FLU RSV #### [address] NRBC% 0.1 /100{WBC} Normal 0-0.5 [facility] Comment on above: Order Comment: Reaso n for Exam Generalized Anxiety Disorder (SANDRA);Medication management Performed By: #### C EPHEID NEG, COVID19 FLU RSV #### [address] Comprehensive Metabolic Pane soniya 03-17-2023 Albumin [Mass/Vol] 4.2 g/dL Normal 3.5-5.7 [facility] Comment on above: Order Comment: Reaso n for Exam Generalized Anxiety Disorder (SANDRA);Medication management Performed By: #### C EPHEID NEG, COVID19 FLU RSV #### [address] Calcium [Mass/Vol] 8.9 mg/dL Normal 8.6-10.3 [facility] Comment on above: Order Comment: Reaso n for Exam Generalized Anxiety Disorder (SANDRA);Medication management Performed By: #### C EPHEID NEG, COVID19 FLU RSV #### [address] GFR/1.73 sq M.predicted MDRD (S/P/Bld) [Vol rate/Area] mL/min/{1.73_m2} Normal [facility] Comment on above: Order Comment: Reaso n for Exam Generalized Anxiety Disorder (SANDRA);Medication management Performed By: #### C EPHEID NEG, COVID19 FLU RSV #### [address] Creatinine [Mass/volume] in Serum or PlasmaOrdered By: Radha Mcintosh on 03-17-2023 Creatinine [Mass/Vol] 0.54 mg/dL Low 0.60-1.20 [facility] Comment on above: Order Comment: Reaso n for Exam Generalized Anxiety Disorder (SANDRA);Medication management Performed By: #### C EPHEID NEG, COVID19 FLU RSV #### [place] [address] [place] Erythrocyte distribution wid th [Ratio] by Automated countOrdered By: Radha Mcintosh on 03-17-2023 Erythrocyte distribution width (RBC) [Ratio] 15.2 % Normal 11.9-15.3 [facility] Comment on above: Order Comment: Reaso n for Exam Generalized Anxiety Disorder (SANDRA);Medication management Performed By: #### C EPHEID NEG, COVID19 FLU RSV #### [facility] [address] [place] [address] [place] Erythrocytes [#/volume] in B lood by Automated countOrdered By: Radha Mcintosh on 03-17-2023 RBC (Bld) [#/Vol] 4.53 10*6/uL Normal 3.60-5.00 [facility] Comment on above: Order Comment: Reaso n for Exam Generalized Anxiety Disorder (SANDRA);Medication management Performed By: #### C EPHEID NEG, COVID19 FLU RSV #### [facility] [address] [place] [id number] [place] Ferritin [Mass/volume] in Se rum or PlasmaOrdered By: Melissa Singh on 03-17-2023 Ferritin [Mass/Vol] 66.4 ng/mL Normal 11.0-306.8 [facility] Comment on above: Performed By: #### C EPHEID NEG, COVID19 FLU RSV #### [facility] [address] Folate [Mass/volume] in Seru m or PlasmaOrdered By: Melissa Singh on 03-17-2023 Folate [Mass/Vol] 27.0 ng/mL >5.9 [facility] Comment on above: Folate reference ran ge: >5.9 ng/mlThe WHO technical consultation on folate and vitamin [id number] has determined that folate concentrations lessthan 4 ng/ml are considered deficient. Glucose [Mass/volume] in Ser um or PlasmaOrdered By: Radha Mcintosh on 03-17-2023 Glucose [Mass/Vol] 79 mg/dL Normal 70-100 [facility] Comment on above: ADA recommended refe rence rangeRandom Glucose Reference Range is dependent on time and content of last meal. Glucose of more than 200 mg/dL in a nonstressed, ambulatory subject supports the diagnosis of Diabetes Mellitus. Order Comment: Reaso n for Exam Generalized Anxiety Disorder (SANDRA);Medication management Result Comment: [place] om Glucose Reference Range is dependent on time and content of last meal. Glucose of more than 200 mg/dL in a nonstressed, ambulatory subject supports the diagnosis of Diabetes Mellitus. ADA recommended reference range Performed By: #### C EPHEID NEG, COVID19 FLU RSV #### [facility] [address] Hematocrit [Volume Fraction] of Blood by Automated countOrdered By: Radha Mcintosh on 03-17-2023 Hematocrit (Bld) [Volume fraction] 39.4 % Normal 34.0-46.4 [facility] Comment on above: Order Comment: Reaso n for Exam Generalized Anxiety Disorder (SANDRA);Medication management Performed By: #### C EPHEID NEG, COVID19 FLU RSV #### [facility] [address] [place] [address] Hemoglobin [Mass/volume] in BloodOrdered By: Radha Mcintosh on 03-17-2023 Hemoglobin (Bld) [Mass/Vol] 13.1 g/dL Normal 11.8-15.4 [facility] Comment on above: Order Comment: Reaso n for Exam Generalized Anxiety Disorder (SANDRA);Medication management Performed By: #### C EPHEID NEG, COVID19 FLU RSV #### [address] Iron [Mass/volume] in Serum or PlasmaOrdered By: Melissa Singh on 03-17-2023 Iron [Mass/Vol] 40 ug/dL Low 50-212 [facility] Comment on above: Performed By: #### C EPHEID NEG, COVID19 FLU RSV #### [facility] [address] [place] [address] Leukocytes [#/volume] correc emily for nucleated erythrocytes in Blood by Automated counOrdered By: Radha Mcintosh on 03-17-2023 WBC corrected for nucl RBC Auto (Bld) [#/Vol] 8.8 10*3/uL 3.8-11.6 [facility] Leukocytes [#/volume] in Blo od by Automated countOrdered By: Radha Mcintosh on 03-17-2023 WBC (Bld) [#/Vol] 8.8 10*3/uL Normal 3.8-11.6 [facility] Comment on above: Order Comment: Reaso n for Exam Generalized Anxiety Disorder (SANDRA);Medication management Performed By: #### C EPHEID NEG, COVID19 FLU RSV #### [facility] [address] [place] [address] [place] Lymphocytes [#/volume] in Bl ood by Automated countOrdered By: Radha Mcintosh on 03-17-2023 Lymphocytes (Bld) [#/Vol] 2.6 10*3/uL Normal 1.00-4.8 [facility] Comment on above: Order Comment: Reaso n for Exam Generalized Anxiety Disorder (SANDRA);Medication management Performed By: #### C EPHEID NEG, COVID19 FLU RSV #### [facility] [address] [place] [address] [place] Lymphocytes/100 leukocytes i n Blood by Automated countOrdered By: Radha Mcintosh on 03-17-2023 Lymphocytes/100 WBC (Bld) 29.4 % Normal . [facility] Comment on above: Order Comment: Reaso n for Exam Generalized Anxiety Disorder (SANDRA);Medication management Performed By: #### C EPHEID NEG, COVID19 FLU RSV #### [address] MCH [Entitic mass] by Automa emily countOrdered By: Radha Mcintosh on 03-17-2023 MCH (RBC) [Entitic mass] 29.0 pg Normal 24.7-34.3 [facility] Comment on above: Order Comment: Reaso n for Exam Generalized Anxiety Disorder (SANDRA);Medication management Performed By: #### C EPHEID NEG, COVID19 FLU RSV #### [facility] [address] [place] [address] MCHC Auto (RBC) [Mass/Vol]Or dered By: Radha Mcintosh on 03-17-2023 MCHC (RBC) [Mass/Vol] 33.3 g/dL 32.0-35.0 [facility] MCV [Entitic volume] by Auto mated countOrdered By: Radha Mcintosh on 03-17-2023 MCV (RBC) [Entitic vol] 87.0 fL Normal 80-100 [facility] Comment on above: Order Comment: Reaso n for Exam Generalized Anxiety Disorder (SANDRA);Medication management Performed By: #### C EPHEID NEG, COVID19 FLU RSV #### [facility] [address] Neutrophils [#/volume] in Bl ood by Automated countOrdered By: Radha Mcintosh on 03-17-2023 Neutrophils (Bld) [#/Vol] 5.5 10*3/uL Normal 1.8-7.7 [facility] Comment on above: Order Comment: Reaso n for Exam Generalized Anxiety Disorder (SANDRA);Medication management Performed By: #### C EPHEID NEG, COVID19 FLU RSV #### [address] No Panel InformationOrdered By: Radha Mcintosh on 03-17-2023 Estimated GFR (CKD-EPI) > 60.0 mL/Min [facility] Creatinine Clearance (Chem N/A [facility] Nucleated erythrocytes [Pres ence] in Blood by Automated countOrdered By: Radha Mcintosh on 03-17-2023 Nucleated RBC Auto Ql (Bld) 0.1 /100{WBC} 0-0.5 [facility] Parathyrin.intact [Mass/volu me] in Serum or PlasmaOrdered By: Melissa Singh on 03-17-2023 Parathyrin.intact [Mass/Vol] 46.2 pg/mL [facility] Parathyroid Hormone Intacton 03-17-2023 Parathyroid Hormone Intact 46.2 pg/mL Normal [facility] Comment on above: Result Comment: PERF ORMED BY: [place] [address]END[address] WENDY CLARK M.D. Performed By: #### C EPHEID NEG, COVID19 FLU RSV #### [address] Phosphate [Mass/volume] in S zakia or PlasmaOrdered By: Melissa Singh on 03-17-2023 Phosphate [Mass/Vol] 4.0 mg/dL Normal 3.7-7.2 [facility] Comment on above: Performed By: #### C EPHEID NEG, COVID19 FLU RSV #### [facility] [address] Platelet mean volume [Entiti c volume] in Blood by Automated countOrdered By: Radha Mcintosh on 03-17-2023 Platelet mean volume (Bld) [Entitic vol] 7.6 fL Normal 6.3-10.7 [facility] Comment on above: Order Comment: Reaso n for Exam Generalized Anxiety Disorder (SANDRA);Medication management Performed By: #### C EPHEID NEG, COVID19 FLU RSV #### [address] Platelets [#/volume] in Bloo d by Automated countOrdered By: Radha Mcintosh on 03-17-2023 Platelets (Bld) [#/Vol] 370 10*3/uL Normal 150-450 [facility] Comment on above: Order Comment: Reaso n for Exam Generalized Anxiety Disorder (SANDRA);Medication management Performed By: #### C EPHEID NEG, COVID19 FLU RSV #### [place] [address] [place] Potassium [Moles/volume] in Serum or PlasmaOrdered By: Radha Mcintosh on 03-17-2023 Potassium [Moles/Vol] 4.1 mmol/L Normal 3.5-5.1 [facility] Comment on above: Order Comment: Reaso n for Exam Generalized Anxiety Disorder (SANDRA);Medication management Performed By: #### C EPHEID NEG, COVID19 FLU RSV #### [place] [address] [place] Protein [Mass/volume] in Ser um or PlasmaOrdered By: Radha Mcintosh on 03-17-2023 Protein [Mass/Vol] 7.0 g/dL Normal 6.4-8.9 [facility] Comment on above: Order Comment: Reaso n for Exam Generalized Anxiety Disorder (SANDRA);Medication management Performed By: #### C EPHEID NEG, COVID19 FLU RSV #### [address] Serum globulin measurement b y calculation (mass/volume)Ordered By: Radha Mcintosh on 03-17-2023 Globulin (S) [Mass/Vol] 2.8 g/dL Normal [facility] Comment on above: Order Comment: Reaso n for Exam Generalized Anxiety Disorder (SANDRA);Medication management Performed By: #### C EPHEID NEG, COVID19 FLU RSV #### [address] Serum or plasma 25-hydroxyca lciferol measurement (mass/volume)Ordered By: Radha Mcintosh on 03-17-2023 25-hydroxyvitamin D2 [Mass/Vol] <1.0 ng/mL . [facility] Comment on above: This test was develo ped and its performance characteristicsdetermined by [facility]. It has not been cleared or approvedby the Food and Drug Administration. Serum or plasma 25-hydroxyvi tamin D measurement (mass/volume)Ordered By: Radha Mcintosh on 03-17-2023 25-hydroxyvitamin D [Mass/Vol] 47 ng/mL . [facility] Comment on above: Reference Range:All Ages: Target levels 30 - 100 Serum or plasma albumin/glob ulin mass ratioOrdered By: Radha Mcintosh on 03-17-2023 Albumin/Globulin [Mass ratio] 1.5 {ratio} Normal [facility] Comment on above: Order Comment: Reaso n for Exam Generalized Anxiety Disorder (SANDRA);Medication management Performed By: #### C EPHEID NEG, COVID19 FLU RSV #### [address] Serum or plasma anion gap de terminationOrdered By: Radha Mcintosh on 03-17-2023 Anion gap [Moles/Vol] 11.6 mmol/L Normal 6.0-15.0 [facility] Comment on above: Order Comment: Reaso n for Exam Generalized Anxiety Disorder (SANDRA);Medication management Performed By: #### C EPHEID NEG, COVID19 FLU RSV #### [facility] [address] [place] [address] Serum or plasma calcidiol me asurement (mass/volume)Ordered By: Radha Mcintosh on 03-17-2023 25-hydroxyvitamin D3 [Mass/Vol] 47 ng/mL . [facility] Comment on above: This test was develo ped and its performance characteristicsdetermined by [facility]. It has not been cleared or approvedby the Food and Drug Administration.Performed at: [id number] [place], [place] [id number] Director: Kenji Malone MD, Phone: [phone] Sodium [Moles/volume] in Ser um or PlasmaOrdered By: Radha Mcintosh on 03-17-2023 Sodium [Moles/Vol] 139 mmol/L Normal 136-145 [facility] Comment on above: Order Comment: Reaso n for Exam Generalized Anxiety Disorder (SANDRA);Medication management Performed By: #### C EPHEID NEG, COVID19 FLU RSV #### [address] Urea nitrogen [Mass/volume] in Serum or PlasmaOrdered By: Radha Mcintosh on 03-17-2023 Urea nitrogen [Mass/Vol] 9 mg/dL Normal 7-25 [facility] Comment on above: Order Comment: Reaso n for Exam Generalized Anxiety Disorder (SANDRA);Medication management Performed By: #### C EPHEID NEG, COVID19 FLU RSV #### [address] Vit. B12/Folate Profileon Folate 27.0 ng/mL Normal >5.9 [facility] Comment on above: Result Comment: Janel te reference range: >5.9 ng/ml The WHO technical consultation on folate and vitamin b12 deficiencies has determined that folate concentrations less than 4 ng/ml are considered deficient. PERFORMED BY: [place] [address] WENDY CLARK M.D. Performed By: #### T 3F, TSH3, T4F #### [address] Vitamin B12 ser/plasOrdered By: Melissa Singh on 03-17-2023 Cobalamin (Vitamin B12) [Mass/Vol] 478 pg/mL Normal 180-914 [facility] Comment on above: Performed By: #### T 3F, TSH3, T4F #### [address] [place] [address] [place] Vitamin D 25 Hydroxy,Tot+D2+ D3on 03-17-2023 [facility] Vitamin D 25 [place] 47 ng/mL Normal . [facility] Comment on above: Order Comment: Reaso n for Exam Generalized Anxiety Disorder (SANDRA);Medication management Result Comment: Refe rence Range: All Ages: Target levels 30 - 100 Performed By: #### C EPHEID NEG, COVID19 FLU RSV #### [address] Vitamin D-2 <1.0 Normal . [facility] Comment on above: Order Comment: Reaso n for Exam Generalized Anxiety Disorder (SANDRA);Medication management Result Comment: This test was developed and its performance characteristics determined by [facility]. It has not been cleared or approved by the Food and Drug Administration. Performed By: #### C EPHEID NEG, COVID19 FLU RSV #### [address] Vitamin D-3 47 ng/mL Normal . [facility] Comment on above: Order Comment: Reaso n for Exam Generalized Anxiety Disorder (SANDRA);Medication management Result Comment: This test was developed and its performance characteristics determined by [facility]. It has not been cleared or approved by the Food and Drug Administration. Performed at: [facility] [address] [place] [id number] Client Services Administrator: Kenji Malone MD, Phone: [phone] PERFORMED BY: [place] [address]END[address] WENDY CLARK M.D. Performed By: #### C EPHEID NEG, COVID19 FLU RSV #### [address] Family Medicine Office/Clini c Noteon 03-14-2023 Family [...] not ; her partner, Katie, works at [employer] The patient is NOT currently working; disability for back, fibromyalgia and depression - 8 years The patient has 4 children; 29, 28, 19, 16 Colon Cancer screening: colonoscopy is planned for later this month --> 7 years ago Breast cancer screenin/22 Pap smear: s/p hysterectomy with cervix removal DEXA: age Labs: done at [facility] List of Providers: Cardiology - [facility] - Dr. [place] / I[place] staff / Chief Complaint confirmed with the patient Interval history: OARRS - tramadol monthly temazepam last rxd in july alprazolam in Jun mold exposure same apartment for the last 5 years * brother was 42 when he had a heart attack - daily smoker, daily drinker, drinking significant energy drinks and mountain dew daily * 02/16/23 - cardiology Nelson Saeed HTN - BP well controlled ECHO and stress test results reviewed - ECG appropriate, hit HR goal no recent arrhythmia on apple watch planning to repeat the 30 day monitor 02/03/23 - message re-fax pysch referral to [facility] 02/02/23 - urology - OAB - treated with botox --> several options discussed, pt decided to stay the course 01/26/23 - cardiology Nelson saeed HX - brother, age 42, recently [...] psychiatry due to increasing anxiety 01/24/23 - [facility] - ED SOB 01/05/23 - ED uncontrolled blood pressure, and concern of DVT I may have over reacted 01/04/23 - cardiology - Nathanielg palpitations - not tolerating metoprolol --> changed to diltiazem leg pain - CTA negative --> requesting US of her leg HTN - BP is well controlled 12/30/22 - [facility] - ED uncontrolled BP 12/23/22 - cardiology [...] cardiology appt in [place] requesting referral to [facility] 12/08/22 - [facility]/ - cardiology palpitations/ SOB - echo and stress test negative 11/24/22 - message requestin rheum referral to Dr. Cadet because she doesn't drive [place] 11/11/22 - PCP - Dr. Donya Billings anxiety - xanax PRN insomnia - continue melatonin noted rx for temazepam metoprolol rx 11/05/22 - [facility] chest pain LABS Cr/eGFR: No qualifying data available. A1c: No qualifying data available. TSH: No qualifying data available. Vit D: No qualifying data available. LDL: No qualifying data available. Lipids: No qualifying data available. Microalbumin: No qualifying data available. INR: No qualifying data available. Testosterone: No qualifying data available. Free and total testosterone: No qualifying data available. Future Appointments [facility] Appt. Date: 03/11/2023 8:40 AM Scheduled Provider: Melissa Singh DO [address] [facility] [address] [place], [place], [id number] Phone: -- Fax: -- [facility]: 04/11/2023 10:00 AM Scheduled Provider: [place], [address] Phone: [phone] Fax: [phone] [facility] Appt. Date: 11/16/2023 1:00 PM Scheduled [...] Lungs: Cl (more content not included)... Normal [facility] Comment on above: Result Comment: Elec tronically Signed By: Melissa Singh DO\Date and Time Signed: 03/14/23 14:15 [...] she recently stopped tramadol and is [place] [place], which subsequently ended her use of benzodiazepines. [...] 1 month 2. 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 Normal [facility] Comment on above: Result Comment: Elec tronically Signed By: Melissa Singh DO\.br\Date and Time Signed: 03/14/23 14:13 EDT Other Comment: brent mccarty - student note Ambulatory Visit Summaryon 1 Ambulatory Visit Summary LUPE PICKARD :1975 Visit Date:03/11/2023 Ambulatory Visit Instructions Your Diagnosis Palpitations Medication management Anxiety Chronic insomnia Fibromyalgia Moderate recurrent major depression Morbid obesity Adult BMI 40.0-44.9 kg/sq m Your Care Team Attending Physician - Melissa Singh DO Primary Care Physician - Melissa Singh DO This Is Your Medications List Contact prescribing physician if questions or concerns acetaminophen (Tylenol) acetaminophen-hydroc odone ([place] 5/325 Tab) alprazolam (alprazolam 0.5 mg Tab) [...] Follow-Up Appointments 2022 1:00 PM EST With: Melissa Singh DO Where: [facility] Invalid Interpretation Code [address] [place] [address]-\.br\ Tuesday 1:00 PM EDT \.br\ With:\.br\ Where: [facility] Consent for Treatmenton 10 Consent for Treatment [id number] #1.00TIFF Normal [facility] Heart and Vascular Office/Cl inic Noteon 03-08-2023 [...] Would consider study adequate. Reviewed strips from [employer] watch- no arrhythmia. Will repeat a 30 day event monitor Continue current medications for now Portions of this record may have been created with voice recognition artificial intelligence software, specifically [employer], [employer] and or [employer]. Substitutions may have occurred due to the inherent limitations of voice recognition and artificial intelligence software. Follow-up With When Contact Information SANTY PELAYO, [place] [address]- [phone] Additional Instructions: 4-6 weeks Problem List/Past Medical [...] hours Cap-ER, (more content not included)... Normal [facility] Comment on above: Result Comment: Elec tronically Signed By: Roula SAEED CNP\.chanel\Date and Time Signed: 03/08/23 14:35 EDT Thyrotropin [Units/volume] i n Serum or PlasmaOrdered By: Kenyetta Dove on 02-17-2023 TSH Qn 0.24 m[IU]/L 0.45-5.33 [facility] Thyroxine (T4) free [Mass/vo lume] in Serum or PlasmaOrdered By: Kenyetta Dove on 02-17-2023 Free T4 [Mass/Vol] 0.87 ng/dL 0.61-1.12 [facility] Triiodothyronine (T3) Free [ Mass/volume] in Serum or PlasmaOrdered By: Kenyetta Dove on 02-17-2023 Free T3 [Mass/Vol] 3.89 pg/mL 2.50-3.90 [facility] Consent for Treatmenton 01-29 Consent for Treatment [id number] #1.00CD:127 Normal [facility] Physician Orderon 02-16-2023 Physician Order [id number]#1.00CD:127 Normal [facility] NM Myocardial Spect Part 2on 02-09-2023 NM [...] Rest Dose (mCi Tc99m Cardiolite): 29.1 Normal [facility] Patient Educationon 02-03-20 Patient Education Obstetrics [...] health care provider. General instructions ? Take [id number] and prescription medicines only as told by [...] monitor yo (more content not included)... Normal [facility] Urology Office/Clinic Noteon 02-02-2023 Urology Office/Clinic [...] time for her next Botox dose. Ordered: [id number] Measure Post Void residual urine and/or bladder capacity by US- non-imaging E&M of Est. Patient Moderate 30-39 Min [id number] Follow-up With When Contact Information MAYA DELCID, ALLYSSA Bellamy, URL Only if needed [address] [place] [address] Business (1) Additional Instructions: Call [...] Social History (more content not included)... Normal [facility] Comment on above: Result Comment: Elec tronically Signed By: ALLYSSA TREJO PA-C.chanel\Date and Time Signed: 02/02/23 09:42 EDT Physician Referralon 023 Physician Referral [id number]# 1.00CD:127 Normal [facility] Physician Referral [id number]# 1.00CD:127 [facility] Sleep Studieson 01-28-2023 Sleep Studies [id number] #1.00CD:127 [facility] Consent for Treatmenton 12-30 Consent for Treatment [id number] #1.00CD:127 [facility] Heart and Vascular Office/Cl inic Noteon 01-27-2023 Heart and Vascular Office/Clinic Note History of Present Illness Patient is a very pleasant 47-year-old morbidly obese nondiabetic female with a history of fibromyalgia, GERD, former smoker quit more than 30 years ago, referred to our office for palpitations. Patient was originally referred to [facility] with Dr. Ross and she provided several [...] was told it was okay by her [employer]. Given the patient's family history of heart disease she wanted a second opinion. The patient went to the emergency room in the recent past and [facility] where her blood pressure was found [...] Symptomatic PVCs (more content not included)... Normal [facility] Comment on above: Result Comment: Elec tronically Signed By: SANTY PELAYO, Franklyn Arias\.br\Date and Time Signed: 01/27/23 13:54 EDT Physician Orderon 01-27-2023 Physician Order [id number] #1.00CD:127 Normal [facility] Stress EKG Tracingson 2022 Stress EKG Tracings [id number]#1.00CD:127 Normal [facility] Ambulatory Visit Summaryon 0 01-26-2023 Ambulatory Visit Summary LUPE PICKARD :1975 Visit Date:01/26/2023 Ambulatory Visit Instructions Your Diagnosis Anxiety Screen for colon cancer Your Care Team Attending Physician - STEVEN AREA DIRECTOR OF HOME HEALTH SALES, TAVO A Primary Care Physician - Melissa Singh DO This Is Your Medications List [...] TREJO PA-C Where: [facility] Invalid Interpretation Code [address] [place] [address].br\ Tuesday 1:00 PM EDT \.br\ With:\.br\ Where: [facility] Patient Educationon 01-27-20 Patient Education Mental and Behavioral Health Mindfulness-Based [...] or l (more content not included)... Normal [facility] Activated partial thrombopla stin time (aPTT) in platelet poor plasma by coagulation aOrdered By: Laz Lobo on 01-24-2023 aPTT Coag (PPP) [Time] 29.9 s 25.1-36.5 [facility] Basophils Auto (Bld) [#/Vol] Ordered By: Laz Lobo on 01-24-2023 Basophils (Bld) [#/Vol] 0.1 10*3/uL 0.0-0.2 [facility] Basophils/100 WBC Auto (Bld) Ordered By: Laz Lobo on 01-24-2023 Basophils/100 WBC (Bld) 0.7 % . [facility] Bilirubin Test strip Ql (U)O rdered By: Laz Lobo on 01-24-2023 Bilirubin Ql (U) Negative Negative [facility] Calcium [Mass/volume] in Ser um or PlasmaOrdered By: Laz Lobo on 01-24-2023 Calcium [Mass/Vol] 8.7 mg/dL 8.6-10.3 [facility] Carbon dioxide, total [Moles /volume] in Serum or PlasmaOrdered By: Laz Loob on 01-24-2023 CO2 [Moles/Vol] 29.0 mmol/L 21.0-31.0 [facility] Chloride [Moles/volume] in S zakia or PlasmaOrdered By: Laz Lobo on 01-24-2023 Chloride [Moles/Vol] 105 mmol/L 98-107 [facility] Color Auto (U)Ordered By: Elsa Lobo on 01-24-2023 Color (U) Yellow Yellow [facility] Creatine kinase [Enzymatic a ctivity/volume] in Serum or PlasmaOrdered By: Laz Lobo on 01-24-2023 CK [Catalytic activity/Vol] 55 U/L 30-223 [facility] Creatinine [Mass/volume] in Serum or PlasmaOrdered By: Laz Lobo on 01-24-2023 Creatinine [Mass/Vol] 0.57 mg/dL 0.60-1.20 [facility] ED Note-Physicianon 01-25-20 ED Note-Physician [id number]# 1.00CD:127 Normal [facility] Eosinophils Auto (Bld) [#/Vo l]Ordered By: Laz Lobo on 01-24-2023 Eosinophils (Bld) [#/Vol] 0.1 10*3/uL 0.0-0.45 [facility] Eosinophils/100 WBC Auto (Bl d)Ordered By: Laz Lobo on 01-24-2023 Eosinophils/100 WBC (Bld) 1.6 % . [facility] Erythrocyte distribution wid th Auto (RBC) [Ratio]Ordered By: Laz Lobo on 01-24-2023 Erythrocyte distribution width (RBC) [Ratio] 14.5 % 11.9-15.3 [facility] Glucose [Mass/volume] in Ser um or PlasmaOrdered By: Laz Lobo on 01-24-2023 Glucose [Mass/Vol] 110 mg/dL 70-100 [facility] Comment on above: ADA recommended refe rence rangeRandom Glucose Reference Range is dependent on time and content of last meal. Glucose of more than 200 mg/dL in a nonstressed, ambulatory subject supports the diagnosis of Diabetes Mellitus. Hematocrit Auto (Bld) [Volum e fraction]Ordered By: Laz Lobo on 01-24-2023 Hematocrit (Bld) [Volume fraction] 39.8 % 34.0-46.4 [facility] Hemoglobin [Mass/volume] in BloodOrdered By: Laz Lobo on 01-24-2023 Hemoglobin (Bld) [Mass/Vol] 13.2 g/dL 11.8-15.4 [facility] INR in Platelet poor plasma by Coagulation assayOrdered By: Laz Lobo on 01-24-2023 INR Coag (PPP) [Relative time] 1.0 {INR} [facility] Comment on above: INR Therapeutic Rang [...] on 01-24-2023 Ketones (U) [Mass/Vol] Negative Negative [facility] Lab Reportson 01-24-2023 Lab Reports [id number]# 1.00CD:127 Normal [facility] Laboratory - CoagulationOrde red By: Laz Lobo on 01-24-2023 PT Coag (PPP) [Time] 11.5 s 9.0-12.9 [facility] Leukocytes [#/volume] correc emily for nucleated erythrocytes in Blood by Automated counOrdered By: Laz Lobo on 01-24-2023 WBC corrected for nucl RBC Auto (Bld) [#/Vol] 7.6 10*3/uL 3.8-11.6 [facility] Lymphocytes Auto (Bld) [#/Vo l]Ordered By: Laz Lobo on 01-24-2023 Lymphocytes (Bld) [#/Vol] 2.0 10*3/uL 1.00-4.8 [facility] Lymphocytes/100 WBC Auto (Bl d)Ordered By: Laz Lobo on 01-24-2023 Lymphocytes/100 WBC (Bld) 26.6 % . [facility] MCH Auto (RBC) [Entitic mass ]Ordered By: Laz Lobo on 01-24-2023 MCH (RBC) [Entitic mass] 28.8 pg 24.7-34.3 [facility] MCHC Auto (RBC) [Mass/Vol]Or dered By: Laz Lobo on 01-24-2023 MCHC (RBC) [Mass/Vol] 33.1 g/dL 32.0-35.0 [facility] MCV Auto (RBC) [Entitic vol] Ordered By: Laz Lobo on 01-24-2023 MCV (RBC) [Entitic vol] 86.8 fL 80-100 [facility] Monocyte distribution width [Entitic volume] in Blood by AutomatedOrdered By: Laz Lobo on 01-24-2023 Monocyte distribution width Auto (Bld) [Entitic vol] 16.72 % 0.00-20.00 [facility] Monocytes Auto (Bld) [#/Vol] Ordered By: Laz Lobo on 01-24-2023 Monocytes (Bld) [#/Vol] 0.2 10*3/uL 0.0-0.8 [facility] Monocytes/100 WBC Auto (Bld) Ordered By: Laz Lobo on 01-24-2023 Monocytes/100 WBC (Bld) 2.7 % . [facility] Natriuretic peptide B [Mass/ Vol]Ordered By: Laz Lobo on 01-24-2023 Natriuretic peptide B (Bld) [Mass/Vol] 37.0 pg/mL 5-100 [facility] Neutrophils Auto (Bld) [#/Vo l]Ordered By: Laz Lobo on 01-24-2023 Neutrophils (Bld) [#/Vol] 5.2 10*3/uL 1.8-7.7 [facility] Neutrophils/100 WBC Auto (Bl d)Ordered By: Laz Lobo on 01-24-2023 Neutrophils/100 WBC (Bld) 68.4 % . [facility] Nitrite Test strip Ql (U)Ord ered By: Laz Lobo on 01-24-2023 Nitrite Ql (U) Negative Negative [facility] No Panel InformationOrdered By: Laz Lobo on 01-24-2023 D-Dimer Quantitative (PE/DVT) < 200 ng/mL 0-243 [facility] Comment on above: The reference range [...] conditions. Estimated GFR (CKD-EPI) > 60.0 mL/Min [facility] Creatinine Clearance (Chem 169.33 [facility] Nucleated erythrocytes [Pres ence] in Blood by Automated countOrdered By: Laz Lobo on 01-24-2023 Nucleated RBC Auto Ql (Bld) 0.1 /100{WBC} 0-0.5 [facility] Outside Labson 01-24-2023 Outside Labs [id number] #1.00CD:127 Normal [facility] Platelet mean volume Auto (B ld) [Entitic vol]Ordered By: Laz Lobo on 01-24-2023 Platelet mean volume (Bld) [Entitic vol] 8.2 fL 6.3-10.7 [facility] Platelets Auto (Bld) [#/Vol] Ordered By: Laz Lobo on 01-24-2023 Platelets (Bld) [#/Vol] 350 10*3/uL 150-450 [facility] Potassium [Moles/volume] in Serum or PlasmaOrdered By: Laz Lobo on 01-24-2023 Potassium [Moles/Vol] 3.8 mmol/L 3.5-5.1 [facility] Protein Auto test strip (U) [Mass/Vol]Ordered By: Laz Lobo on 01-24-2023 Protein (U) [Mass/Vol] Negative Negative [facility] RBC Auto (Bld) [#/Vol]Ordere d By: Laz Lobo on 01-24-2023 RBC (Bld) [#/Vol] 4.59 10*6/uL 3.60-5.00 [facility] Serum or plasma anion gap de terminationOrdered By: Laz Lobo on 01-24-2023 Anion gap [Moles/Vol] 8.8 mmol/L 6.0-15.0 [facility] Sodium [Moles/volume] in Ser um or PlasmaOrdered By: Laz Lobo on 01-24-2023 Sodium [Moles/Vol] 139 mmol/L 136-145 [facility] Specific gravity Auto test s trip (U) [Rel density]Ordered By: Laz Lobo on 01-24-2023 Specific gravity (U) [Rel density] 1.004 1.001-1.030 [facility] Troponin I.cardiac [Mass/vol ume] in Serum or Plasma by Detection limit <= 0.01 ng/Ordered By: Laz Lobo on 01-24-2023 Troponin I.cardiac DL <= 0.01 ng/mL [Mass/Vol] < 2.3 pg/mL 0.0-15.0 [facility] Urea nitrogen [Mass/volume] in Serum or PlasmaOrdered By: Laz Lobo on 01-24-2023 Urea nitrogen [Mass/Vol] 7 mg/dL 12-21 [facility] Urine clarity by refractomet ry automatedOrdered By: Laz Lobo on 01-24-2023 Clarity Refractometry automated (U) Clear Clear [facility] Urine glucose measurement by automated test strip (mass/volume)Ordered By: Laz Lobo on 01-24-2023 Glucose Auto test strip (U) [Mass/Vol] Normal mg/dL Normal [facility] Urine hemoglobin detection b y automated test stripOrdered By: Laz Lobo on 01-24-2023 Hemoglobin Auto test strip Ql (U) Negative Negative [facility] Urine leukocyte esterase det ection by automated test stripOrdered By: Laz Lobo on 01-24-2023 Leukocyte esterase Auto test strip Ql (U) Negative Negative [facility] Urobilinogen Auto test strip (U) [Mass/Vol]Ordered By: Laz Lobo on 01-24-2023 Urobilinogen (U) [Mass/Vol] Normal mg/dL Normal [facility] WBC Auto (Bld) [#/Vol]Ordere d By: Laz Lobo on 01-24-2023 WBC (Bld) [#/Vol] 7.6 10*3/uL 3.8-11.6 [facility] pH Auto test strip (U)Ordere d By: aLz Lobo on 01-24-2023 pH (U) 7.0 [pH] 5.0-9.0 [facility] Calcium [Mass/volume] in Ser um or PlasmaOrdered By: Phillip Benjamin on 01-21-2023 Calcium [Mass/Vol] 9.1 mg/dL 8.6-10.3 [facility] Carbon dioxide, total [Moles /volume] in Serum or PlasmaOrdered By: Phillip Benjamin on 01-21-2023 CO2 [Moles/Vol] 28.2 mmol/L 21.0-31.0 [facility] Chloride [Moles/volume] in S zakia or PlasmaOrdered By: Phillip Benjamin on 01-21-2023 Chloride [Moles/Vol] 105 mmol/L 98-107 [facility] Cholesterol [Mass/volume] in Serum or PlasmaOrdered By: Franklyn Madera on 01-21-2023 Cholesterol [Mass/Vol] 153 mg/dL 140-200 [facility] Comment on above: Chol less than 200 m g/dl low riskChol 201-239 mg/dl borderline riskChol 240 mg/dl and greater high risk Cholesterol in LDL Calc [Mas s/Vol]Ordered By: Franklyn Madera on 01-21-2023 Cholesterol in LDL [Mass/Vol] 60 mg/dL 0-100 [facility] Comment on above: LDL ATP III CLASSIFI CATIONLDL less than 100 mg/dL OptimalLDL 100-129 mg/dL Near or above optimalLDL 130-159 mg/dL Borderline highLDL 160-189 mg/dL HighLDL greater than 189 mg/dL Very high Cholesterol in VLDL Calc [Ma ss/Vol]Ordered By: Franklyn Madera on 01-21-2023 Cholesterol in VLDL [Mass/Vol] 50 mg/dL [facility] Consent for Treatmenton 12-29 Consent for Treatment [id number] #1.00CD:127 Normal [facility] Creatinine [Mass/volume] in Serum or PlasmaOrdered By: Phillip Benjamin on 01-21-2023 Creatinine [Mass/Vol] 0.52 mg/dL 0.60-1.20 [facility] Glucose [Mass/volume] in Ser um or PlasmaOrdered By: Phillip Benjamin on 01-21-2023 Glucose [Mass/Vol] 84 mg/dL 70-100 [facility] Comment on above: ADA recommended refe rence rangeRandom Glucose Reference Range is dependent on time and content of last meal. Glucose of more than 200 mg/dL in a nonstressed, ambulatory subject supports the diagnosis of Diabetes Mellitus. No Panel InformationOrdered By: Phillip Benjamin on 01-21-2023 Estimated GFR (CKD-EPI) > 60.0 mL/Min [facility] Creatinine Clearance (Chem N/A [facility] No Panel Informationon 01-21 > 60.0 Normal [facility] [employer] [address] DO Work Phone: [phone] 10.1\S\10.1 Normal 6.0-15.0 [facility] [employer] [address] DO Work Phone: [phone] 9.1\S\9.1 Normal 8.6-10.3 [facility] [employer] [address] DO Work Phone: [phone] 28.2\S\28.2 Normal 21.0-31.0 [facility] [employer] [address] DO Work Phone: [phone] 105\S\105 Normal 98-107 [facility] [employer] [address] DO Work Phone: [phone] 4.3\S\4.3 Normal 3.5-5.1 [facility] [employer] [address] DO Work Phone: [phone] 139\S\139 Normal 136-145 [facility] [employer] [address] DO Work Phone: [phone] 0.52\S\0.52 below low threshold 0.60-1.20 -[facility] [employer] [address] DO Work Phone: [phone] 8\S\8 Normal 7-25 [facility] [employer] [address] DO Work Phone: [phone] 84\S\84 Normal 70-100 [facility] [employer] [address] DO Work Phone: [phone] Comment on above: Random Glucose Refer ence Range is dependent on time and content of last meal. Glucose of more than 200 mg/dL in a nonstressed, ambulatory subject supports the diagnosis of Diabetes Mellitus. ADA recommended reference range 0.24\S\0.24 below low threshold 0.45-5.33 [facility] [address] DO Work Phone: 41.7\S\41.7 Normal 30-100 -[facility] [address] DO Work Phone: Comment on above: VITAMIN D STATUS 25( [place])VITAMIN D RANGE (ng/mL) Deficient <20 Insufficient 20 to <30 Sufficient 30 to 100 Reference: Kirby MF,Adonay NC, Shantelle HOLLOWAY, et al. Evaluation,treatment, and prevention of vitamin D deficiency; an Endocrine Society clinical practice guideline. JCEM. 2010; 96(7):1911-30.PERFORMED BY:[facility] [place] [place], [place] [phone] MEDICAL DIRECTORWENDY CLARK M.D. Potassium [Moles/volume] in Serum or PlasmaOrdered By: Phillip Benjamin on 01-21-2023 Potassium [Moles/Vol] 4.3 mmol/L 3.5-5.1 [facility] Serum or plasma anion gap de terminationOrdered By: Phillip Benjamin on 01-21-2023 Anion gap [Moles/Vol] 10.1 mmol/L 6.0-15.0 [facility] Serum or plasma high density lipoprotein (HDL) cholesterol measurementOrdered By: Franklyn Madera on 01-21-2023 Cholesterol in HDL [Mass/Vol] 42 mg/dL 23-92 [facility] Comment on above: HDL CHOL ATP-III CLA SSIFICATION Cardiovascular RiskHDL > or equal to 60 mg/dL LOWHDL < 40 mg/dL HIGH Serum or plasma total choles terol/high density lipoprotein (HDL) cholesterol mass ratOrdered By: Franklyn Madera on 01-21-2023 Cholesterol.total/Ch olesterol in HDL [Mass ratio] 3.6 {ratio} <5.0 [facility] Sodium [Moles/volume] in Ser um or PlasmaOrdered By: Phillip Benjamin on 01-21-2023 Sodium [Moles/Vol] 139 mmol/L 136-145 [facility] Thyrotropin [Units/volume] i n Serum or PlasmaOrdered By: Phillip Benjamin on 01-21-2023 TSH Qn 0.24 m[IU]/L 0.45-5.33 [facility] Triglyceride [Mass/volume] i n Serum or PlasmaOrdered By: Franklyn Madera on 01-21-2023 Triglyceride [Mass/Vol] 254 mg/dL 0-149 [facility] Comment on above: TRIG ATP III CLASSIF ICATIONTRIG less than 150 mg/dL NormalTRIG 150-199 mg/dL Borderline highTRIG 200-500 mg/dL High TRIG greater than 500 mg/dL Very highStandard traceable to the Center for Disease Conrtrol and Prevention (CDC) test method. Urea nitrogen [Mass/volume] in Serum or PlasmaOrdered By: Phillip Benjamin on 01-21-2023 Urea nitrogen [Mass/Vol] 8 mg/dL 7-25 [facility] Vitamin D+Metabolites [Mass/ volume] in Serum or PlasmaOrdered By: Phillip Benjamin on 01-21-2023 Vitamin D+Metabolites [Mass/Vol] 41.7 ng/mL 30-100 [facility] Comment on above: VITAMIN D STATUS 25( [place])VITAMIN D RANGE (ng/mL) Deficient <20 Insufficient 20 to <30Sufficient 30 to 100Reference: Kirby MF,Adonay INMAN, Shantelle HOLLOWAY, et al. Evaluation,treatment, and prevention of vitamin D deficiency; an Endocrine Society clinical practice guideline. JCEM. 2010; 96(7):1911-30. Patient Eval Forms Officeon 01-19-2023 Patient Eval Forms Office [id number] 2#1.00CD:127 Normal [facility] Consenton 01-18-2023 Consent [id number]#1.00CD:127 Normal [facility] Consent for Treatmenton 12-29 Consent for Treatment [id number] #1.00CD:127 Normal [facility] Patient Eval Forms Officeon 01-18-2023 Patient Eval Forms Office [id number] 2#1.00CD:127 Normal [facility] Activated partial thrombopla stin time (aPTT) in platelet poor plasma by coagulation aOrdered By: Mariya Kumari on 12-30-2022 aPTT Coag (PPP) [Time] 30.5 s 25.1-36.5 [facility] Basophils Auto (Bld) [#/Vol] Ordered By: Mariya Kumari on 12-30-2022 Basophils (Bld) [#/Vol] 0.1 10*3/uL 0.0-0.2 [facility] Basophils/100 WBC Auto (Bld) Ordered By: Mariya Kumari on 12-30-2022 Basophils/100 WBC (Bld) 1.3 % . [facility] Calcium [Mass/volume] in Ser um or PlasmaOrdered By: Mariya Kumari on 12-30-2022 Calcium [Mass/Vol] 8.4 mg/dL 8.6-10.3 [facility] Carbon dioxide, total [Moles /volume] in Serum or PlasmaOrdered By: Mariya Kumari on 12-30-2022 CO2 [Moles/Vol] 28.0 mmol/L 21.0-31.0 [facility] Chloride [Moles/volume] in S zakia or PlasmaOrdered By: Mariya Kumari on 12-30-2022 Chloride [Moles/Vol] 104 mmol/L 98-107 [facility] Creatinine [Mass/volume] in Serum or PlasmaOrdered By: Mariya Kumari on 12-30-2022 Creatinine [Mass/Vol] 0.56 mg/dL 0.60-1.20 [facility] Eosinophils Auto (Bld) [#/Vo l]Ordered By: Mariya Kumari on 12-30-2022 Eosinophils (Bld) [#/Vol] 0.1 10*3/uL 0.0-0.45 [facility] Eosinophils/100 WBC Auto (Bl d)Ordered By: Mariya Kumari on 12-30-2022 Eosinophils/100 WBC (Bld) 1.5 % . [facility] Erythrocyte distribution wid th Auto (RBC) [Ratio]Ordered By: Mariya Kumari on 12-30-2022 Erythrocyte distribution width (RBC) [Ratio] 14.4 % 11.9-15.3 [facility] Glucose [Mass/volume] in Ser um or PlasmaOrdered By: Mariya Kumari on 12-30-2022 Glucose [Mass/Vol] 87 mg/dL 70-100 [facility] Comment on above: ADA recommended refe rence rangeRandom Glucose Reference Range is dependent on time and content of last meal. Glucose of more than 200 mg/dL in a nonstressed, ambulatory subject supports the diagnosis of Diabetes Mellitus. Hematocrit Auto (Bld) [Volum e fraction]Ordered By: Mariya Kumari on 12-30-2022 Hematocrit (Bld) [Volume fraction] 40.1 % 34.0-46.4 [facility] Hemoglobin [Mass/volume] in BloodOrdered By: Mariya Kumari on 12-30-2022 Hemoglobin (Bld) [Mass/Vol] 13.3 g/dL 11.8-15.4 [facility] Laboratory - CoagulationOrde red By: Mariya Kumari on 12-30-2022 PT Coag (PPP) [Time] 10.9 s 9.0-12.9 [facility] Leukocytes [#/volume] correc emily for nucleated erythrocytes in Blood by Automated counOrdered By: Mariya Kumari on 12-30-2022 WBC corrected for nucl RBC Auto (Bld) [#/Vol] 9.6 10*3/uL 3.8-11.6 [facility] Lymphocytes Auto (Bld) [#/Vo l]Ordered By: Mariya Kumari on 12-30-2022 Lymphocytes (Bld) [#/Vol] 3.2 10*3/uL 1.00-4.8 [facility] Lymphocytes/100 WBC Auto (Bl d)Ordered By: Mariya Kumari on 12-30-2022 Lymphocytes/100 WBC (Bld) 33.6 % . [facility] MCH Auto (RBC) [Entitic mass ]Ordered By: Mariya Kumari on 12-30-2022 MCH (RBC) [Entitic mass] 28.8 pg 24.7-34.3 [facility] MCHC Auto (RBC) [Mass/Vol]Or dered By: Mariya Kumari on 12-30-2022 MCHC (RBC) [Mass/Vol] 33.1 g/dL 32.0-35.0 [facility] MCV Auto (RBC) [Entitic vol] Ordered By: Mariya Kumari on 12-30-2022 MCV (RBC) [Entitic vol] 87.2 fL 80-100 [facility] Magnesium [Mass/volume] in S zakia or PlasmaOrdered By: Mariya Kumari on 12-30-2022 Magnesium [Mass/Vol] 1.9 mg/dL 1.9-2.7 [facility] Monocyte distribution width [Entitic volume] in Blood by AutomatedOrdered By: Mariya Kumari on 12-30-2022 Monocyte distribution width Auto (Bld) [Entitic vol] 16.70 % 0.00-20.00 [facility] Monocytes Auto (Bld) [#/Vol] Ordered By: Mariya Kumari on 12-30-2022 Monocytes (Bld) [#/Vol] 0.4 10*3/uL 0.0-0.8 [facility] Monocytes/100 WBC Auto (Bld) Ordered By: Mariya Kumari on 12-30-2022 Monocytes/100 WBC (Bld) 4.0 % . [facility] Natriuretic peptide B [Mass/ Vol]Ordered By: Mariya Kumari on 12-30-2022 Natriuretic peptide B (Bld) [Mass/Vol] 55.0 pg/mL 5-100 [facility] Neutrophils Auto (Bld) [#/Vo l]Ordered By: Mariya Kumari on 12-30-2022 Neutrophils (Bld) [#/Vol] 5.7 10*3/uL 1.8-7.7 [facility] Neutrophils/100 WBC Auto (Bl d)Ordered By: Mariya Kumari on 12-30-2022 Neutrophils/100 WBC (Bld) 59.6 % . [facility] No Panel InformationOrdered By: Mariya Kumari on 12-30-2022 D-Dimer Quantitative (PE/DVT) 334 ng/mL 0-243 [facility] Comment on above: The reference range [...] conditions. Estimated GFR (CKD-EPI) > 60.0 mL/Min [facility] Creatinine Clearance (Chem 171.83 [facility] Nucleated erythrocytes [Pres ence] in Blood by Automated countOrdered By: Mariya Kumari on 12-30-2022 Nucleated RBC Auto Ql (Bld) 0.1 /100{WBC} 0-0.5 [facility] Platelet mean volume Auto (B ld) [Entitic vol]Ordered By: Mariya Kumari on 12-30-2022 Platelet mean volume (Bld) [Entitic vol] 8.6 fL 6.3-10.7 [facility] Platelet poor plasma interna tional normalized ratio (INR) by coagulation assay (relatOrdered By: Mariya Kumari on 12-30-2022 INR Coag (PPP) [Relative time] 0.9 {INR} [facility] Comment on above: INR Therapeutic Rang [...] 12-30-2022 Platelets (Bld) [#/Vol] 348 10*3/uL 150-450 [facility] Potassium [Moles/volume] in Serum or PlasmaOrdered By: Mariya Kumari on 12-30-2022 Potassium [Moles/Vol] 3.7 mmol/L 3.5-5.1 [facility] RBC Auto (Bld) [#/Vol]Ordere d By: Mariya Kumari on 12-30-2022 RBC (Bld) [#/Vol] 4.60 10*6/uL 3.60-5.00 [facility] Serum or plasma anion gap de terminationOrdered By: Mariya Kumari on 12-30-2022 Anion gap [Moles/Vol] 11.7 mmol/L 6.0-15.0 [facility] Sodium [Moles/volume] in Ser um or PlasmaOrdered By: Mariya Kumari on 12-30-2022 Sodium [Moles/Vol] 140 mmol/L 136-145 [facility] Troponin I.cardiac [Mass/vol ume] in Serum or Plasma by Detection limit <= 0.01 ng/Ordered By: Mariya Kumari on 12-30-2022 Troponin I.cardiac DL <= 0.01 ng/mL [Mass/Vol] 2.4 pg/mL 0.0-15.0 [facility] Urea nitrogen [Mass/volume] in Serum or PlasmaOrdered By: Mariya Kumari on 12-30-2022 Urea nitrogen [Mass/Vol] 7 mg/dL 7 [facility] WBC Auto (Bld) [#/Vol]Ordere d By: Mariya Kumari on 12-30-2022 WBC (Bld) [#/Vol] 9.6 10*3/uL 3.8-11.6 [facility] Activated partial thrombopla stin time (aPTT) in platelet poor plasma by coagulation aOrdered By: Josué Napier on 12-20-2022 aPTT Coag (PPP) [Time] 31.8 s 25.1-36.5 [facility] Alanine aminotransferase [En zymatic activity/volume] in Serum or PlasmaOrdered By: Josué Napier on 12-20-2022 ALT [Catalytic activity/Vol] 12 U/L 7-52 [facility] Albumin [Mass/volume] in Ser um or Plasma by Bromocresol green (BCG) dye binding methoOrdered By: Josué Napier on 12-20-2022 Albumin BCG dye [Mass/Vol] 4.4 g/dL 3.5-5.7 [facility] Alkaline phosphatase [Enzyma tic activity/volume] in Serum or PlasmaOrdered By: Josué Napier on 12-20-2022 ALP [Catalytic activity/Vol] 49 U/L 34-104 [facility] Amphetamine Screen Ql (U)Ord ered By: Josué Napier on 12-20-2022 Amphetamines Ql (U) Negative Negative [facility] Aspartate aminotransferase [ Enzymatic activity/volume] in Serum or PlasmaOrdered By: Josué Napier on 12-20-2022 AST [Catalytic activity/Vol] 11 U/L 13-39 [facility] Barbiturates [Presence] in U rine by Screen methodOrdered By: Josué Napier on 12-20-2022 Barbiturates Screen Ql (U) Negative Negative [facility] Basophils Auto (Bld) [#/Vol] Ordered By: Josué Napier on 12-20-2022 Basophils (Bld) [#/Vol] 0.0 10*3/uL 0.0-0.2 [facility] Basophils/100 WBC Auto (Bld) Ordered By: Josué Napier on 12-20-2022 Basophils/100 WBC (Bld) 0.2 % . [facility] Benzodiazepines Screen Ql (U )Ordered By: Josué Napier on 12-20-2022 Benzodiazepines Ql (U) Negative Negative [facility] Benzoylecgonine [Presence] i n Urine by Screen methodOrdered By: Josué Napier on 12-20-2022 Benzoylecgonine Screen Ql (U) Negative Negative [facility] Bilirubin Test strip Ql (U)O rdered By: Josué Napier on 12-20-2022 Bilirubin Ql (U) Negative Negative [facility] Bilirubin.total [Mass/volume ] in Serum or PlasmaOrdered By: Josué Napier on 12-20-2022 Bilirubin [Mass/Vol] 0.3 mg/dL 0.3-1.0 [facility] Calcium [Mass/volume] in Ser um or PlasmaOrdered By: Josué Napier on 12-20-2022 Calcium [Mass/Vol] 9.2 mg/dL 8.6-10.3 [facility] Cannabinoids [Presence] in U rine by Screen methodOrdered By: Josué Napier on 12-20-2022 Cannabinoids Screen Ql (U) Negative Negative [facility] Comment on above: These are unconfirme d results and should not be used for legal purposes. Drug Cut-Off Concentration: AMPH 1000 ng/mL MEKHI 200 ng/mL NURY 200 ng/mL COCM 300 ng/mL OP 300 ng/mL PCP 25 ng/mL THC 20 ng/mL Carbon dioxide, total [Moles /volume] in Serum or PlasmaOrdered By: Josué Napier on 12-20-2022 CO2 [Moles/Vol] 28.6 mmol/L 21.0-31.0 [facility] Chloride [Moles/volume] in S zakia or PlasmaOrdered By: Josué Napier on 12-20-2022 Chloride [Moles/Vol] 104 mmol/L 98-107 [facility] Color Auto (U)Ordered By: Randolph Napier on 12-20-2022 Color (U) Yellow Yellow [facility] Creatine kinase [Enzymatic a ctivity/volume] in Serum or PlasmaOrdered By: Josué Napier on 12-20-2022 CK [Catalytic activity/Vol] 46 U/L 30-223 [facility] Creatinine [Mass/volume] in Serum or PlasmaOrdered By: Josué Napier on 12-20-2022 Creatinine [Mass/Vol] 0.57 mg/dL 0.60-1.20 [facility] Eosinophils Auto (Bld) [#/Vo l]Ordered By: Josué Napier on 12-20-2022 Eosinophils (Bld) [#/Vol] 0.1 10*3/uL 0.0-0.45 [facility] Eosinophils/100 WBC Auto (Bl d)Ordered By: Josué Napier on 12-20-2022 Eosinophils/100 WBC (Bld) 1.1 % . [facility] Erythrocyte distribution wid th Auto (RBC) [Ratio]Ordered By: Josué Napier on 12-20-2022 Erythrocyte distribution width (RBC) [Ratio] 14.4 % 11.9-15.3 [facility] Globulin Calc (S) [Mass/Vol] Ordered By: Jsoué Napier on 12-20-2022 Globulin (S) [Mass/Vol] 3.1 g/dL [facility] Glucose [Mass/volume] in Ser um or PlasmaOrdered By: Josué Napier on 12-20-2022 Glucose [Mass/Vol] 97 mg/dL 70-100 [facility] Comment on above: ADA recommended refe rence rangeRandom Glucose Reference Range is dependent on time and content of last meal. Glucose of more than 200 mg/dL in a nonstressed, ambulatory subject supports the diagnosis of Diabetes Mellitus. Hematocrit Auto (Bld) [Volum e fraction]Ordered By: Josué Napier on 12-20-2022 Hematocrit (Bld) [Volume fraction] 40.7 % 34.0-46.4 [facility] Hemoglobin [Mass/volume] in BloodOrdered By: Josué Napier on 12-20-2022 Hemoglobin (Bld) [Mass/Vol] 13.7 g/dL 11.8-15.4 [facility] Ketones Auto test strip (U) [Mass/Vol]Ordered By: Josué Napier on 12-20-2022 Ketones (U) [Mass/Vol] Negative Negative [facility] Laboratory - CoagulationOrde red By: Josué Napier on 12-20-2022 PT Coag (PPP) [Time] 11.8 s 9.0-12.9 [facility] Leukocytes [#/volume] correc emily for nucleated erythrocytes in Blood by Automated counOrdered By: Josué Napier on 12-20-2022 WBC corrected for nucl RBC Auto (Bld) [#/Vol] 10.0 10*3/uL 3.8-11.6 [facility] Lymphocytes Auto (Bld) [#/Vo l]Ordered By: Josué Napier on 12-20-2022 Lymphocytes (Bld) [#/Vol] 2.7 10*3/uL 1.00-4.8 [facility] Lymphocytes/100 WBC Auto (Bl d)Ordered By: Josué Napier on 12-20-2022 Lymphocytes/100 WBC (Bld) 26.9 % . [facility] MCH Auto (RBC) [Entitic mass ]Ordered By: Josué Napier on 12-20-2022 MCH (RBC) [Entitic mass] 29.2 pg 24.7-34.3 [facility] MCHC Auto (RBC) [Mass/Vol]Or dered By: Josué Napier on 12-20-2022 MCHC (RBC) [Mass/Vol] 33.6 g/dL 32.0-35.0 [facility] MCV Auto (RBC) [Entitic vol] Ordered By: Josué Napier on 12-20-2022 MCV (RBC) [Entitic vol] 86.9 fL 80-100 [facility] Magnesium [Mass/volume] in S zakia or PlasmaOrdered By: Josué Napier on 12-20-2022 Magnesium [Mass/Vol] 1.8 mg/dL 1.9-2.7 [facility] Monocyte distribution width [Entitic volume] in Blood by AutomatedOrdered By: Josué Napier on 12-20-2022 Monocyte distribution width Auto (Bld) [Entitic vol] 18.26 % 0.00-20.00 [facility] Monocytes Auto (Bld) [#/Vol] Ordered By: Josué Napier on 12-20-2022 Monocytes (Bld) [#/Vol] 0.4 10*3/uL 0.0-0.8 [facility] Monocytes/100 WBC Auto (Bld) Ordered By: Josué Napier on 12-20-2022 Monocytes/100 WBC (Bld) 4.1 % . [facility] Neutrophils Auto (Bld) [#/Vo l]Ordered By: Josué Napier on 12-20-2022 Neutrophils (Bld) [#/Vol] 6.8 10*3/uL 1.8-7.7 [facility] Neutrophils/100 WBC Auto (Bl d)Ordered By: Josué Napier on 12-20-2022 Neutrophils/100 WBC (Bld) 67.7 % . [facility] Nitrite Test strip Ql (U)Ord ered By: Josué Napier on 12-20-2022 Nitrite Ql (U) Negative Negative [facility] No Panel InformationOrdered By: Josué Napier on 12-20-2022 Estimated GFR (CKD-EPI) > 60.0 mL/Min [facility] Creatinine Clearance (Chem 168.35 [facility] Nucleated erythrocytes [Pres ence] in Blood by Automated countOrdered By: Josué Napier on 12-20-2022 Nucleated RBC Auto Ql (Bld) 0.1 /100{WBC} 0-0.5 [facility] Opiates [Presence] in Urine by Screen methodOrdered By: Josué Napier on 12-20-2022 Opiates Screen Ql (U) Negative Negative [facility] Phencyclidine Screen Ql (U)O rdered By: Josué Napier on 12-20-2022 Phencyclidine Ql (U) Negative Negative [facility] Platelet mean volume Auto (B ld) [Entitic vol]Ordered By: Josué Napier on 12-20-2022 Platelet mean volume (Bld) [Entitic vol] 8.3 fL 6.3-10.7 [facility] Platelet poor plasma interna tional normalized ratio (INR) by coagulation assay (relatOrdered By: Josué Napier on 12-20-2022 INR Coag (PPP) [Relative time] 1.0 {INR} [facility] Comment on above: INR Therapeutic Rang [...] 4.5 Platelets Auto (Bld) [#/Vol] Ordered By: Josué Napier on 12-20-2022 Platelets (Bld) [#/Vol] 349 10*3/uL 150-450 [facility] Potassium [Moles/volume] in Serum or PlasmaOrdered By: Josué Napier on 12-20-2022 Potassium [Moles/Vol] 3.9 mmol/L 3.5-5.1 [facility] Protein Auto test strip (U) [Mass/Vol]Ordered By: Josué Napier on 12-20-2022 Protein (U) [Mass/Vol] Negative Negative [facility] Protein [Mass/volume] in Ser um or PlasmaOrdered By: Josué Napier on 12-20-2022 Protein [Mass/Vol] 7.5 g/dL 6.4-8.9 [facility] RBC Auto (Bld) [#/Vol]Ordere d By: Josué Napier on 12-20-2022 RBC (Bld) [#/Vol] 4.68 10*6/uL 3.60-5.00 [facility] Serum or plasma albumin/glob ulin mass ratioOrdered By: Josué Napier on 12-20-2022 Albumin/Globulin [Mass ratio] 1.4 {ratio} [facility] Serum or plasma anion gap de terminationOrdered By: Josué Napier on 12-20-2022 Anion gap [Moles/Vol] 10.3 mmol/L 6.0-15.0 [facility] Sodium [Moles/volume] in Ser um or PlasmaOrdered By: Josué Napier on 12-20-2022 Sodium [Moles/Vol] 139 mmol/L 136-145 [facility] Specific gravity Auto test s trip (U) [Rel density]Ordered By: Josué Napier on 12-20-2022 Specific gravity (U) [Rel density] 1.005 1.001-1.030 [facility] Thyrotropin [Units/volume] i n Serum or PlasmaOrdered By: Josué Napier on 12-20-2022 TSH Qn 0.23 m[IU]/L 0.45-5.33 [facility] Thyroxine (T4) [Mass/volume] in Serum or PlasmaOrdered By: Josué Napier on 12-20-2022 T4 [Mass/Vol] 9.01 ug/dL 5.39-11.82 [facility] Troponin I.cardiac [Mass/vol ume] in Serum or Plasma by Detection limit <= 0.01 ng/Ordered By: Josué Napier on 12-20-2022 Troponin I.cardiac DL <= 0.01 ng/mL [Mass/Vol] < 2.3 pg/mL 0.0-15.0 [facility] Urea nitrogen [Mass/volume] in Serum or PlasmaOrdered By: Josué Napier on 12-20-2022 Urea nitrogen [Mass/Vol] 9 mg/dL 7-25 [facility] Urine clarity by refractomet ry automatedOrdered By: Josué Napier on 12-20-2022 Clarity Refractometry automated (U) Clear Clear [facility] Urine glucose measurement by automated test strip (mass/volume)Ordered By: Josué Napier on 12-20-2022 Glucose Auto test strip (U) [Mass/Vol] Normal mg/dL Normal [facility] Urine hemoglobin detection b y automated test stripOrdered By: Josué Napier on 12-20-2022 Hemoglobin Auto test strip Ql (U) Negative Negative [facility] Urine leukocyte esterase det ection by automated test stripOrdered By: Josué Napier on 12-20-2022 Leukocyte esterase Auto test strip Ql (U) Negative Negative [facility] Urobilinogen Auto test strip (U) [Mass/Vol]Ordered By: Josué Napier on 12-20-2022 Urobilinogen (U) [Mass/Vol] Normal mg/dL Normal [facility] WBC Auto (Bld) [#/Vol]Ordere d By: Josué Napier on 12-20-2022 WBC (Bld) [#/Vol] 10.0 10*3/uL 3.8-11.6 [facility] pH Auto test strip (U)Ordere d By: Josué Napier on 12-20-2022 pH (U) 6.5 [pH] 5.0-9.0 [facility] Office Visit (Cardiology)on 12-08-2022 Follow-up visit [...] Metabolic Panel; Status:Active - Retrospective Authorization; Requested for:[id number]; TSH - Thyroid Stimulating Hormone, Serum; Status:Active - Retrospective Authorization; Requested for:[id number]; Vitamin D 25-Hydroxy; Status:Need Information - ABN Disposition,Retrospe ctive Authorization; Requested for:[id number]; Morbid obesity with BMI of 40.0-44.9, adult Healthy Weight Tips; Status:Complete - Retrospective Authorization; Done: [id number] Some eating tips that can help you lose weight.; Status:Complete - Retrospective Authorization; Done: [id number] Palpitations Renew: Metoprolol Succinate ER 50 MG Oral Tablet Extended Release 24 Hour; TAKE 1 TABLET BY MOUTH EVERY DAY PVC (premature ventricular contraction) IO EKG Electrocardiogram- 12 Lead; Status:Complete; Done: [id number] SocHx: Former smoker Tobacco Use Screening; Status:Complete; Done: [id number] Patient Instructions Please bring all medicines, vitamins, [...] have nerve ablations in back with the [place] [facility]. The provider reviewed the following [...] TWICE A DAY Vitamin D3 1.25 MG (32301 UT) Oral CapsuleTAKE 1 CAPSULE Daily Allergies Medication No Known Drug Allergies Recorded By: Suzie Turner; 10/21/2017 2:10:00 PM Social History Problems Daily caf (more content not included)... Normal [email or web address] Tobacco Screening.on 023 Tobacco use status CPHS b) No [facility] 250 DO Work Phone: Echocardiogramon 11-25-2022 Echocardiography [facility] [address] [place] [address], [address] [place] [address] TRANSTHORACIC ECHOCARDIOGRAM REPORT Patient Name: LUPE Horne Physician: [id number] Azam Mortensen MD Study Date: 11/25/2022 Referring Physician: PHILLIP BENJAMIN MRN/PID: [id number] PCP: Donya Billings MD Accession/Order#: [id number] Department Location: [facility] Date of : 1975 Fellow: Gender: F Nurse: Admit Date: Barrel Marker: Shila Tripp RDCS, RVT Height: 170.18 cm CC Report to: Weight: 121.56 kg Study Type: Echocardiogram BSA: 2.29 m2 Blood Pressure: 120 /82 mmHg Diagnosis/ICD: I47.1-Supraventricul ar tachycardia; I49.3-Ventricular premature depolarization; R00.2-Palpitations Indication: Chest Pain, Former Smoker, Morbid Obesity, Hypothyroid, Anxiety, Shortness of Breath, Marijuana Use Procedure/CPT: Echo Complete w Full [id number] Study Detail: The following Echo studies were [...] 0.8 m/s (0.6-0.9m/s) PV Max P.8 mmHg [id number] Azam Mortensen MD Electronically signed on 11/25/2022 at 5:29:01 PM Final Normal [facility] Troponin I.cardiac [Mass/vol ume] in Serum or Plasma by Detection limit <= 0.01 ng/Ordered By: Yogi Michaels on 11-06-2022 Troponin I.cardiac DL <= 0.01 ng/mL [Mass/Vol] < 2.3 pg/mL 0.0-15.0 [facility] Activated partial thrombopla stin time (aPTT) in platelet poor plasma by coagulation aOrdered By: Yogi Michaels on 11-05-2022 aPTT Coag (PPP) [Time] 31.7 s 25.1-36.5 [facility] Basophils Auto (Bld) [#/Vol] Ordered By: Yogi Michaels on 11-05-2022 Basophils (Bld) [#/Vol] 0.1 10*3/uL 0.0-0.2 [facility] Basophils/100 WBC Auto (Bld) Ordered By: Yogi Michaels on 11-05-2022 Basophils/100 WBC (Bld) 0.8 % . [facility] Calcium [Mass/volume] in Ser um or PlasmaOrdered By: Yogi Michaels on 11-05-2022 Calcium [Mass/Vol] 8.6 mg/dL 8.6-10.3 [facility] Carbon dioxide, total [Moles /volume] in Serum or PlasmaOrdered By: Yogi Michaels on 11-05-2022 CO2 [Moles/Vol] 26.4 mmol/L 21.0-31.0 [facility] Chloride [Moles/volume] in S zakia or PlasmaOrdered By: Yogi Michaels on 11-05-2022 Chloride [Moles/Vol] 105 mmol/L 98-107 [facility] Creatinine [Mass/volume] in Serum or PlasmaOrdered By: Yogi Michaels on 11-05-2022 Creatinine [Mass/Vol] 0.58 mg/dL 0.60-1.20 [facility] Eosinophils Auto (Bld) [#/Vo l]Ordered By: Yogi Michaels on 11-05-2022 Eosinophils (Bld) [#/Vol] 0.1 10*3/uL 0.0-0.45 [facility] Eosinophils/100 WBC Auto (Bl d)Ordered By: Yogi Michaels on 11-05-2022 Eosinophils/100 WBC (Bld) 0.9 % . [facility] Erythrocyte distribution wid th Auto (RBC) [Ratio]Ordered By: Yogi Michaels on 11-05-2022 Erythrocyte distribution width (RBC) [Ratio] 14.2 % 11.9-15.3 [facility] Glucose [Mass/volume] in Ser um or PlasmaOrdered By: Yogi Michaels on 11-05-2022 Glucose [Mass/Vol] 74 mg/dL 70-100 [facility] Comment on above: ADA recommended refe rence rangeRandom Glucose Reference Range is dependent on time and content of last meal. Glucose of more than 200 mg/dL in a nonstressed, ambulatory subject supports the diagnosis of Diabetes Mellitus. Hematocrit Auto (Bld) [Volum e fraction]Ordered By: Yogi Michaels on 11-05-2022 Hematocrit (Bld) [Volume fraction] 39.8 % 34.0-46.4 [facility] Hemoglobin [Mass/volume] in BloodOrdered By: Yogi Michaels on 11-05-2022 Hemoglobin (Bld) [Mass/Vol] 13.8 g/dL 11.8-15.4 [facility] - CoagulationOrde red By: Yogi Michaels on 11-05-2022 PT Coag (PPP) [Time] 12.6 s 9.0-12.9 [facility] Leukocytes [#/volume] correc emily for nucleated erythrocytes in Blood by Automated counOrdered By: Yogi Michaels on 11-05-2022 WBC corrected for nucl RBC Auto (Bld) [#/Vol] 11.9 10*3/uL 3.8-11.6 [facility] Lymphocytes Auto (Bld) [#/Vo l]Ordered By: Yogi Michaels on 11-05-2022 Lymphocytes (Bld) [#/Vol] 2.4 10*3/uL 1.00-4.8 [facility] Lymphocytes/100 WBC Auto (Bl d)Ordered By: Yogi Michaels on 11-05-2022 Lymphocytes/100 WBC (Bld) 20.0 % . [facility] MCH Auto (RBC) [Entitic mass ]Ordered By: Yogi Michaels on 11-05-2022 MCH (RBC) [Entitic mass] 30.3 pg 24.7-34.3 [facility] MCHC Auto (RBC) [Mass/Vol]Or dered By: Yogi Michaels on 11-05-2022 MCHC (RBC) [Mass/Vol] 34.7 g/dL 32.0-35.0 [facility] MCV Auto (RBC) [Entitic vol] Ordered By: Yogi Michaels on 11-05-2022 MCV (RBC) [Entitic vol] 87.5 fL 80-100 [facility] Magnesium [Mass/volume] in S zakia or PlasmaOrdered By: Yogi Michaels on 11-05-2022 Magnesium [Mass/Vol] 1.5 mg/dL 1.9-2.7 [facility] Monocyte distribution width [Entitic volume] in Blood by AutomatedOrdered By: Yogi Michaels on 11-05-2022 Monocyte distribution width Auto (Bld) [Entitic vol] 17.86 % 0.00-20.00 [facility] Monocytes Auto (Bld) [#/Vol] Ordered By: Yogi Michaels on 11-05-2022 Monocytes (Bld) [#/Vol] 0.7 10*3/uL 0.0-0.8 [facility] Monocytes/100 WBC Auto (Bld) Ordered By: Yogi Michaels on 11-05-2022 Monocytes/100 WBC (Bld) 5.8 % . [facility] Natriuretic peptide B [Mass/ Vol]Ordered By: Yogi Michaels on 11-05-2022 Natriuretic peptide B (Bld) [Mass/Vol] 16.0 pg/mL 5-100 [facility] Neutrophils Auto (Bld) [#/Vo l]Ordered By: Yogi Michaels on 11-05-2022 Neutrophils (Bld) [#/Vol] 8.6 10*3/uL 1.8-7.7 [facility] Neutrophils/100 WBC Auto (Bl d)Ordered By: Yogi Michaels on 11-05-2022 Neutrophils/100 WBC (Bld) 72.5 % . [facility] No Panel InformationOrdered By: Yogi Michaels on 11-05-2022 Estimated GFR (CKD-EPI) > 60.0 mL/Min [facility] Creatinine Clearance (Chem 166.57 [facility] Nucleated erythrocytes [Pres ence] in Blood by Automated countOrdered By: Yogi Michaels on 11-05-2022 Nucleated RBC Auto Ql (Bld) 0.1 /100{WBC} 0-0.5 [facility] Phosphate [Mass/volume] in S zakia or PlasmaOrdered By: Yogi Michaels on 11-05-2022 Phosphate [Mass/Vol] 3.9 mg/dL 3.7-7.2 [facility] Platelet mean volume Auto (B ld) [Entitic vol]Ordered By: Yogi Michaels on 11-05-2022 Platelet mean volume (Bld) [Entitic vol] 8.1 fL 6.3-10.7 [facility] Platelet poor plasma interna tional normalized ratio (INR) by coagulation assay (relatOrdered By: Yogi Michaels on 11-05-2022 INR Coag (PPP) [Relative time] 1.1 {INR} [facility] Comment on above: INR Therapeutic Rang [...] Platelets Auto (Bld) [#/Vol] Ordered By: Yogi Michaels on 11-05-2022 Platelets (Bld) [#/Vol] 336 10*3/uL 150-450 [facility] Potassium [Moles/volume] in Serum or PlasmaOrdered By: Yogi Michaels on 11-05-2022 Potassium [Moles/Vol] 3.5 mmol/L 3.5-5.1 [facility] RBC Auto (Bld) [#/Vol]Ordere d By: Yogi Michaels on 11-05-2022 RBC (Bld) [#/Vol] 4.55 10*6/uL 3.60-5.00 [facility] Serum or plasma anion gap de terminationOrdered By: Yogi Michaels on 11-05-2022 Anion gap [Moles/Vol] 11.1 mmol/L 6.0-15.0 [facility] Sodium [Moles/volume] in Ser um or PlasmaOrdered By: Yogi Michaels on 11-05-2022 Sodium [Moles/Vol] 139 mmol/L 136-145 [facility] Urea nitrogen [Mass/volume] in Serum or PlasmaOrdered By: Yogi Michaels on 11-05-2022 Urea nitrogen [Mass/Vol] 10 mg/dL 7-25 [facility] WBC Auto (Bld) [#/Vol]Ordere d By: Yogi Michaels on 11-05-2022 WBC (Bld) [#/Vol] 11.9 10*3/uL 3.8-11.6 [facility] Cardiac Stress Teston 2022 Cardiac Stress Test [address], [address] [place] [address] Exercise Stress Test Patient Name: LUPE PICKARD Ordering Physician: [id number] Phillip Benjamin MD Study Date: 10/28/2022 Reading Physician: [id number] Valverde MD, [facility] MRN/PID: [id number] Supervising Physician: [id number] Valverde MD, [facility] Accession/Order#: [id number] Referring Physician: PHILLIP BENJAMIN Date of : 1975 PCP: Donya Billings MD Gender: F Fellow: Height: 170.18 cm Nurse: Randall Hinton RN Weight: 121.56 kg Barrel Marker: NA BSA: 2.29 m2 Technologist: BMI: 41.98 Additional Staff: kg/m2 Age: 47 years cc report to: Patient Location: cc report to: Marcia Benjamin MD Study Type: Cardiac Stress Test Diagnosis/ICD: I47.1-Supraventricul ar tachycardia; R00.2-Palpitations; I49.3-Ventricular premature depolarization Indication: ATACH Procedure/CPT: Stress Test Interpretation-[id number] ; Stress Test Supervision-[id number] Falls Risk: Low: Patient has low risk [...] favorable. 2. Adequate level of stress achieved. [id number] Ric Valverde MD, FACC Electronically signed on 10/29/2022 at 1:49:55 PM Final Normal [facility] Cardiac Stress Test MP-No rth [facility] y [address] [place] Work Phone: Office Visit [...] Status:Hold For - Scheduling,Retrospec tive Authorization; Requested for:[id number]; Atrial tachycardia, Palpitations, PVC (premature ventricular contraction) Echocardiogram; Status:Hold For - Scheduling,Retrospec tive Authorization; Requested for:13Oct2022; Morbid obesity with BMI of 40.0-44.9, adult Healthy Weight Tips; Status:Complete - Retrospective Authorization; Done: 13Oct2022 Some eating tips that can help you lose weight.; Status:Complete - Retrospective Authorization; Done: 13Oct2022 SocHx: Former smoker Tobacco Use Screening; Status:Complete; Done: 13Oct2022 Patient Instructions Please bring all medicines, vitamins, [...] DAILY. Melato (more content not included)... Normal [email or web address] Tobacco Screening.on 05-17-2 023 Tobacco use status CPHS b) No -[facility] [address] [place] Work Phone: Progress Noteson 09-02-2022 Presentation Team Member Authentication Interface Message Text CONSULTED BY: CC: [...] she can follow up PRN. Normal [facility] Presentation Team Member Authentication Interface Message Text Patient was identified by name and date of . Susan Lomeli RN Patient at risk for falls:No Falls Risk protocol implemented: No Normal [facility] Alanine aminotransferase [En zymatic activity/volume] in Serum or PlasmaOrdered By: Kenyetta Dove on 08-10-2022 ALT [Catalytic activity/Vol] 14 U/L 7-52 [facility] Albumin [Mass/volume] in Ser um or Plasma by Bromocresol green (BCG) dye binding methoOrdered By: Kenyetta Dove on 08-10-2022 Albumin BCG dye [Mass/Vol] 4.0 g/dL 3.5-5.7 [facility] Alkaline phosphatase [Enzyma tic activity/volume] in Serum or PlasmaOrdered By: Kenyetta Dove on 08-10-2022 ALP [Catalytic activity/Vol] 43 U/L 34-104 [facility] Aspartate aminotransferase [ Enzymatic activity/volume] in Serum or PlasmaOrdered By: Kenyetta Dove on 08-10-2022 AST [Catalytic activity/Vol] 10 U/L 13-39 [facility] Basophils Auto (Bld) [#/Vol] Ordered By: Kenyetta Sandersongh on 08-10-2022 Basophils (Bld) [#/Vol] 0.0 10*3/uL 0.0-0.2 [facility] Basophils/100 WBC Auto (Bld) Or[facility] By: [facility] on 08-10-2022 Basophils/100 WBC (Bld) 0.5 % . [facility] Bilirubin.total [Mass/volume ] in Serum or PlasmaOrdered By: Kenyetta Sandersongh on 08-10-2022 Bilirubin [Mass/Vol] 0.6 mg/dL 0.3-1.0 [facility] Calcium [Mass/volume] in Ser um or PlasmaOrdered By: Kenyetta Sandersongh on 08-10-2022 Calcium [Mass/Vol] 9.0 mg/dL 8.6-10.3 [facility] Carbon dioxide, total [Moles /volume] in Serum or PlasmaOrdered By: Kenyetta Dove on 08-10-2022 CO2 [Moles/Vol] 29.0 mmol/L 21.0-31.0 [facility] Chloride [Moles/volume] in S zakia or PlasmaOrdered By: Kenyetta Dove on 08-10-2022 Chloride [Moles/Vol] 104 mmol/L 98-107 [facility] Cholesterol [Mass/volume] in Serum or PlasmaOrdered By: Kenyetta Dove on 08-10-2022 Cholesterol [Mass/Vol] 145 mg/dL 140-200 [facility] Comment on above: Chol less than 200 m g/dl low riskChol 201-239 mg/dl borderline riskChol 240 mg/dl and greater high risk Cholesterol in LDL Calc [Mas s/Vol]Ordered By: Kenyetta Dove on 08-10-2022 Cholesterol in LDL [Mass/Vol] 64 mg/dL 0-100 [facility] Comment on above: LDL ATP III CLASSIFI CATIONLDL less than 100 mg/dL OptimalLDL 100-129 mg/dL Near or above optimalLDL 130-159 mg/dL Borderline highLDL 160-189 mg/dL HighLDL greater than 189 mg/dL Very high Cholesterol in VLDL Calc [Ma ss/Vol]Ordered By: Kenyetta Dove on 08-10-2022 Cholesterol in VLDL [Mass/Vol] 27 mg/dL [facility] Creatinine [Mass/volume] in Serum or PlasmaOrdered By: Kenyetta Dove on 08-10-2022 Creatinine [Mass/Vol] 0.52 mg/dL 0.60-1.20 [facility] Eosinophils Auto (Bld) [#/Vo l]Ordered By: Kenyetta Dove on 08-10-2022 Eosinophils (Bld) [#/Vol] 0.1 10*3/uL 0.0-0.45 [facility] Eosinophils/100 WBC Auto (Bl d)Ordered By: Kenyetta Dove on 08-10-2022 Eosinophils/100 WBC (Bld) 1.3 % . [facility] Erythrocyte distribution wid th Auto (RBC) [Ratio]Ordered By: Kenyetta Dove on 08-10-2022 Erythrocyte distribution width (RBC) [Ratio] 14.6 % 11.9-15.3 [facility] Follitropin [Units/volume] i n Serum or PlasmaOrdered By: Kenyetta Dove on 08-10-2022 Follitropin Qn 5.9 m[IU]/mL [facility] Comment on above: FEMALE NORMALS (GERHARD ENOPAUSE) MID-FOLLICULAR PHASE: 3.9-8.8 mIU/mL MID-CYCLE PEAK: 4.5-22.5 mIU/mL MID-LUTEAL PHASE: 1.8-5.1 mIU/mLFEMALE NORMALS (POSTMENOPAUSE): 16.7-113.6 mIU/mLMALE NORMALS: 1.3-19.3 mIU/mL Globulin Calc (S) [Mass/Vol] Ordered By: Kenyetta Dove on 08-10-2022 Globulin (S) [Mass/Vol] 2.3 g/dL [facility] Glucose [Mass/volume] in Ser um or PlasmaOrdered By: Kenyetta Dove on 08-10-2022 Glucose [Mass/Vol] 98 mg/dL 74-109 [facility] Comment on above: ADA recommended refe rence rangeRandom Glucose Reference Range is dependent on time and content of last meal. Glucose of more than 200 mg/dL in a nonstressed, ambulatory subject supports the diagnosis of Diabetes Mellitus. Glucose mean value [Mass/vol ume] in Blood Estimated from glycated hemoglobinOrdered By: Kenyetta Dove on 08-10-2022 Average glucose Estimated from glycated hemoglobin (Bld) [Mass/Vol] 117 mg/dL [facility] Hematocrit Auto (Bld) [Volum e fraction]Ordered By: Kenyetta Dove on 08-10-2022 Hematocrit (Bld) [Volume fraction] 37.0 % 34.0-46.4 [facility] Hemoglobin A1c percentageOrd ered By: Kenyetta Dove on 08-10-2022 HbA1c (Bld) [Mass fraction] 5.7 % 4.3-5.6 [facility] Comment on above: Increased risk for d iabetes: 5.7 - 6.4diabetes: >6.4glycemic control for adults with diabetes: <7.0 Hemoglobin [Mass/volume] in BloodOrdered By: Kenyetta Dove on 08-10-2022 Hemoglobin (Bld) [Mass/Vol] 12.5 g/dL 11.8-15.4 [facility] Laboratory - Chemistry and C hemistry - challengeOrdered By: Kenyetta Dove on 08-10-2022 GFR/1.73 sq M.predicted MDRD (S/P/Bld) [Vol rate/Area] mL/min/{1.73_m2} [facility] Leukocytes [#/volume] correc emily for nucleated erythrocytes in Blood by Automated counOrdered By: Kenyetta Dove on 08-10-2022 WBC corrected for nucl RBC Auto (Bld) [#/Vol] 8.3 10*3/uL 3.8-11.6 [facility] Lymphocytes Auto (Bld) [#/Vo l]Ordered By: Kenyetta Dove on 08-10-2022 Lymphocytes (Bld) [#/Vol] 2.3 10*3/uL 1.00-4.8 [facility] Lymphocytes/100 WBC Auto (Bl d)Ordered By: Kenyetta Dove on 08-10-2022 Lymphocytes/100 WBC (Bld) 28.1 % . [facility] MCH Auto (RBC) [Entitic mass ]Ordered By: Kenyetta Dove on 08-10-2022 MCH (RBC) [Entitic mass] 29.7 pg 24.7-34.3 [facility] MCHC Auto (RBC) [Mass/Vol]Or dered By: Kenyetta Dove on 08-10-2022 MCHC (RBC) [Mass/Vol] 33.7 g/dL 32.0-35.0 [facility] MCV Auto (RBC) [Entitic vol] Ordered By: Kenyetta Dove on 08-10-2022 MCV (RBC) [Entitic vol] 88.0 fL 80-100 [facility] Microalbumin [Mass/volume] i n UrineOrdered By: Kenyetta Dove on 08-10-2022 Albumin DL <= 20 mg/L (U) [Mass/Vol] mg/dL 0.0-1.8 [facility] Monocytes Auto (Bld) [#/Vol] Ordered By: Kenyetta Dove on 08-10-2022 Monocytes (Bld) [#/Vol] 0.3 10*3/uL 0.0-0.8 [facility] Monocytes/100 WBC Auto (Bld) Ordered By: Kenyetta Dove on 08-10-2022 Monocytes/100 WBC (Bld) 3.9 % . [facility] Neutrophils Auto (Bld) [#/Vo l]Ordered By: Kenyetta Dove on 08-10-2022 Neutrophils (Bld) [#/Vol] 5.5 10*3/uL 1.8-7.7 [facility] Neutrophils/100 WBC Auto (Bl d)Ordered By: Kenyetta Dove on 08-10-2022 Neutrophils/100 WBC (Bld) 66.2 % . [facility] No Panel InformationOrdered By: Kenyetta Dove on 08-10-2022 Pharmacy Creatinine Clearance (Chem N/A [facility] Nucleated erythrocytes [Pres ence] in Blood by Automated countOrdered By: Kenyetta Dove on 08-10-2022 Nucleated RBC Auto Ql (Bld) 0.1 /100{WBC} 0-0.5 [facility] Platelet mean volume Auto (B ld) [Entitic vol]Ordered By: Kenyetta Dove on 08-10-2022 Platelet mean volume (Bld) [Entitic vol] 8.2 fL 6.3-10.7 [facility] Platelets Auto (Bld) [#/Vol] Ordered By: Kenyetta Dove on 08-10-2022 Platelets (Bld) [#/Vol] 313 10*3/uL 150-450 [facility] Potassium [Moles/volume] in Serum or PlasmaOrdered By: Kenyetta Dove on 08-10-2022 Potassium [Moles/Vol] 4.1 mmol/L 3.5-5.1 [facility] Protein [Mass/volume] in Ser um or PlasmaOrdered By: Kenyetta Dove on 08-10-2022 Protein [Mass/Vol] 6.3 g/dL 6.4-8.9 [facility] RBC Auto (Bld) [#/Vol]Ordere d By: Kenyetta Dove on 08-10-2022 RBC (Bld) [#/Vol] 4.20 10*6/uL 3.60-5.00 [facility] Serum or plasma albumin/glob ulin mass ratioOrdered By: Kenyetta Dove on 08-10-2022 Albumin/Globulin [Mass ratio] 1.7 {ratio} [facility] Serum or plasma anion gap de terminationOrdered By: Kenyetta Dove on 08-10-2022 Anion gap [Moles/Vol] 10.1 mmol/L 6.0-15.0 [facility] Serum or plasma high density lipoprotein (HDL) cholesterol measurementOrdered By: Kenyetta Dove on 08-10-2022 Cholesterol in HDL [Mass/Vol] 53 mg/dL 35-85 [facility] Comment on above: HDL CHOL ATP-III CLA SSIFICATION Cardiovascular RiskHDL > or equal to 60 mg/dL LOWHDL < 40 mg/dL HIGH Serum or plasma lutropin lisa surement (units/volume)Ordered By: Kenyetta Dove on 08-10-2022 Lutropin Qn 14.0 m[IU]/mL . [facility] Comment on above: Adult Female: Follic ular phase 2.4 - 12.6 Ovulation phase 14.0 - 95.6 Luteal phase 1.0 - 11.4 Postmenopausal 7.7 - 58.5 Serum or plasma progesterone measurement (mass/volume)Ordered By: Kenyetta Dove on 08-10-2022 Progesterone [Mass/Vol] 0.2 ng/mL . [facility] Comment on above: Follicular phase 0.1 - 0.9 Luteal phase 1.8 - 23.9 Ovulation phase 0.1 - 12.0 First trimester 11.0 - 44.3 Second trimester 25.4 - 83.3 Third trimester 58.7 - 214.0 Postmenopausal 0.0 - 0.1Performed at: [facility] [id number] [place], [place] [id number] Director: Ramirez Ca PhD, Phone: [phone] Serum or plasma total choles terol/high density lipoprotein (HDL) cholesterol mass ratOrdered By: Kenyetta Dove on 08-10-2022 Cholesterol.total/Ch olesterol in HDL [Mass ratio] 2.7 {ratio} <5.0 [facility] Sodium [Moles/volume] in Ser um or PlasmaOrdered By: Kenyetta Dove on 08-10-2022 Sodium [Moles/Vol] 139 mmol/L 136-145 [facility] Thyrotropin [Units/volume] i n Serum or PlasmaOrdered By: Kenyetta Dove on 08-10-2022 TSH Qn 0.31 m[IU]/L 0.45-5.33 [facility] Thyroxine (T4) free [Mass/vo lume] in Serum or PlasmaOrdered By: Kenyetta Dove on 08-10-2022 Free T4 [Mass/Vol] 0.80 ng/dL 0.61-1.12 [facility] Total estrogen measurementOr dered By: Kenyetta Dove on 08-10-2022 Estrogen [Mass/Vol] 310 pg/mL . [facility] Comment on above: Prepubertal < 40 Fem giacomo Cycle: 1-10 Days 16 - 328 11-20 Days 34 - 501 21-30 Days 48 - 350 Post-Menopausal 40 - 244Performed at: [facility] [id number] [place], [place] [id number] Director: Roger Kenny MD, Phone: [phone] Triglyceride [Mass/volume] i n Serum or PlasmaOrdered By: Kenyetta Dove on 08-10-2022 Triglyceride [Mass/Vol] 139 mg/dL 0-149 [facility] Comment on above: TRIG ATP III CLASSIF ICATIONTRIG less than 150 mg/dL NormalTRIG 150-199 mg/dL Borderline highTRIG 200-500 mg/dL High TRIG greater than 500 mg/dL Very highStandard traceable to the Center for Disease Conrtrol and Prevention (CDC) test method. Triiodothyronine (T3) Free [ Mass/volume] in Serum or PlasmaOrdered By: Kenyetta Dove on 08-10-2022 Free T3 [Mass/Vol] 3.85 pg/mL 2.50-3.90 [facility] Urea nitrogen [Mass/volume] in Serum or PlasmaOrdered By: Kenyetta Dove on 08-10-2022 Urea nitrogen [Mass/Vol] 8 mg/dL 7-25 [facility] Vitamin D+Metabolites [Mass/ volume] in Serum or PlasmaOrdered By: Kenyetta Dove on 08-10-2022 Vitamin D+Metabolites [Mass/Vol] 36.0 ng/mL 30-100 [facility] Comment on above: VITAMIN D STATUS 25( [place])VITAMIN D RANGE (ng/mL) Deficient <20 Insufficient 20 to <30Sufficient 30 to 100Reference: Kirby MF,Adonay NC, Shantelle HOLLOWAY, et al. Evaluation,treatment, and prevention of vitamin D deficiency; an Endocrine Society clinical practice guideline. JCEM. 2010; 96(7):1911-30. WBC Auto (Bld) [#/Vol]Ordere d By: Kenyetta Dove on 08-10-2022 WBC (Bld) [#/Vol] 8.3 10*3/uL 3.8-11.6 [facility] Office Visit (Cardiology)on 07-28-2022 Follow-up visit Diagnoses/Problems [...] visit. 4 months with EKG Retrieve [facility] Chief Complaint LUPE PICKARD is being seen [...] TWICE A DAY Vitamin D3 1.25 MG (29550 UT) Oral CapsuleTAKE 1 CAPSULE Daily Allergies Medication No Known Drug Allergies Recorded By: Suzie Turner; 10/21/2017 2:10:00 PM Social History Problems Daily caffeine consumption Former smoker (V15.82) (Z87.891) quit 01/28/22 Illicit drug use (305.90) (F19.90) [facility] Social alcohol use (V49.89) (Z78.9) Review of Systems Constitutional: not feeling tired. Cardiovascular: chest pain and palpitations, but no intermittent leg claudication and as noted in HPI. Respiratory: no cough and no shortness of breath. Gastrointestinal: no change in bowel habits and no blood in stools. Integumentary: no skin rashes. Neurological: (more content not included)... Normal [email or web address] Tobacco Screening.on 023 Fall risk assessment c) Not medically indicated -[facility] [address] Work Phone: Tobacco use status CP b) No MP-[facility] [address] Work Phone: Tobacco Screening. Yes -[facility] [address] Work Phone: No Panel Informationon 07-16 -[facility] [address] Work Phone: Basophils Auto (Bld) [#/Vol] Ordered By: Steve Coronel on 06-21-2022 Basophils (Bld) [#/Vol] 0.1 10*3/uL 0.0-0.2 [facility] Basophils/100 WBC Auto (Bld) Ordered By: Steve Coronel on 06-21-2022 Basophils/100 WBC (Bld) 0.6 % . [facility] Bilirubin Test strip Ql (U)O rdered By: Steve Coronel on 06-21-2022 Bilirubin Ql (U) Negative Negative [facility] Body fluid albumin measureme nt (mass/volume)Ordered By: Steve Coronel on 06-21-2022 Albumin (Body fld) [Mass/Vol] 3.7 g/dL 3.2-5.5 [facility] Color Auto (U)Ordered By: Eduardo Coronel on 06-21-2022 Color (U) Yellow Yellow [facility] Creatinine and Glomerular fi ltration rate.predicted panel (S/P/Bld)Ordered By: Steve Coronel on 06-21-2022 Creatinine [Mass/Vol] 0.51 mg/dL 0.44-1.03 [facility] Eosinophils Auto (Bld) [#/Vo l]Ordered By: Steve Coronel on 06-21-2022 Eosinophils (Bld) [#/Vol] 0.1 10*3/uL 0.0-0.45 [facility] Eosinophils/100 WBC Auto (Bl d)Ordered By: Steve Coronel on 06-21-2022 Eosinophils/100 WBC (Bld) 1.2 % . [facility] Erythrocyte distribution wid th Auto (RBC) [Ratio]Ordered By: Steve Coronel on 06-21-2022 Erythrocyte distribution width (RBC) [Ratio] 15.0 % 11.9-15.3 [facility] Estimated glomerular filtrat ion rate (GFR) non- AmericanOrdered By: Steve Coronel on 06-21-2022 GFR/1.73 sq M.predicted among non-blacks MDRD (S/P/Bld) [Vol rate/Area] > 60 mL/Min [facility] Globulin Calc (S) [Mass/Vol] Ordered By: Steve Coronel on 06-21-2022 Globulin (S) [Mass/Vol] 3.1 g/dL [facility] Hematocrit Auto (Bld) [Volum e fraction]Ordered By: Steve Coronel on 06-21-2022 Hematocrit (Bld) [Volume fraction] 40.1 % 34.0-46.4 [facility] Hemoglobin [Mass/volume] in BloodOrdered By: Steve Coronel on 06-21-2022 Hemoglobin (Bld) [Mass/Vol] 13.2 g/dL 11.8-15.4 [facility] Ketones Auto test strip (U) [Mass/Vol]Ordered By: Steve Coronel on 06-21-2022 Ketones (U) [Mass/Vol] Negative Negative [facility] Laboratory - Chemistry and C hemistry - challengeOrdered By: Steve Coronel on 06-21-2022 Lipase [Catalytic activity/Vol] 28.0 U/L 22-51 [facility] Natriuretic peptide B (Bld) [Mass/Vol] 35.0 pg/mL 5-100 [facility] Leukocytes [#/volume] correc emily for nucleated erythrocytes in Blood by Automated counOrdered By: Steve Coronel on 06-21-2022 WBC corrected for nucl RBC Auto (Bld) [#/Vol] 9.5 10*3/uL 3.8-11.6 [facility] Lymphocytes Auto (Bld) [#/Vo l]Ordered By: Steve Coronel on 06-21-2022 Lymphocytes (Bld) [#/Vol] 2.8 10*3/uL 1.00-4.8 [facility] Lymphocytes/100 WBC Auto (Bl d)Ordered By: Steve Coronel on 06-21-2022 Lymphocytes/100 WBC (Bld) 29.5 % . [facility] MCH Auto (RBC) [Entitic mass ]Ordered By: Steve Coronel on 06-21-2022 MCH (RBC) [Entitic mass] 28.7 pg 24.7-34.3 [facility] MCHC Auto (RBC) [Mass/Vol]Or dered By: Steve Coronel on 06-21-2022 MCHC (RBC) [Mass/Vol] 33.0 g/dL 32.0-35.0 [facility] MCV Auto (RBC) [Entitic vol] Ordered By: Steve Coronel on 06-21-2022 MCV (RBC) [Entitic vol] 86.9 fL 80-100 [facility] Monocyte distribution width [Entitic volume] in Blood by AutomatedOrdered By: Steve oCronel on 06-21-2022 Monocyte distribution width Auto (Bld) [Entitic vol] 18.39 % 0.00-20.00 [facility] Monocytes Auto (Bld) [#/Vol] Ordered By: Steve Coronel on 06-21-2022 Monocytes (Bld) [#/Vol] 0.4 10*3/uL 0.0-0.8 [facility] Monocytes/100 WBC Auto (Bld) Ordered By: Steve Coronel on 06-21-2022 Monocytes/100 WBC (Bld) 3.8 % . [facility] Neutrophils Auto (Bld) [#/Vo l]Ordered By: Steve Coronel on 06-21-2022 Neutrophils (Bld) [#/Vol] 6.2 10*3/uL 1.8-7.7 [facility] Neutrophils/100 WBC Auto (Bl d)Ordered By: Steve Coronel on 06-21-2022 Neutrophils/100 WBC (Bld) 64.9 % . [facility] Nitrite Test strip Ql (U)Ord ered By: Steve Coronel on 06-21-2022 Nitrite Ql (U) Negative Negative [facility] No Panel InformationOrdered By: Steve Coronel on 06-21-2022 D-Dimer Quantitative (PE/DVT) < 200 ng/mL 0-243 [facility] Comment on above: The reference range [...] conditions. Estimated GFR () > 60 mL/Min [facility] Comment on above: GFR estimated refere nce range: According to KDOQI guidelines, <60 ml/min/1.73m2 is sufficient to diagnose a patient with chronic kidney disease. Pharmacy Creatinine Clearance (Chem N/A [facility] Nucleated erythrocytes [Pres ence] in Blood by Automated countOrdered By: Steve Coronel on 06-21-2022 Nucleated RBC Auto Ql (Bld) 0.1 /100{WBC} 0-0.5 [facility] Platelet mean volume Auto (B ld) [Entitic vol]Ordered By: Steve Coronel on 06-21-2022 Platelet mean volume (Bld) [Entitic vol] 8.0 fL 6.3-10.7 [facility] Platelets Auto (Bld) [#/Vol] Ordered By: Steve Coronel on 06-21-2022 Platelets (Bld) [#/Vol] 356 10*3/uL 150-450 [facility] Protein Auto test strip (U) [Mass/Vol]Ordered By: Steve Coronel on 06-21-2022 Protein (U) [Mass/Vol] Negative Negative [facility] Protein [Mass/volume] in Ser um or PlasmaOrdered By: Steve Coronel on 06-21-2022 Protein [Mass/Vol] 6.8 g/dL 6.1-7.9 [facility] RBC Auto (Bld) [#/Vol]Ordere d By: Steve Coronel on 06-21-2022 RBC (Bld) [#/Vol] 4.61 10*6/uL 3.60-5.00 [facility] Serum or plasma alanine ott otransferase measurement without P-5'-P (enzymatic activiOrdered By: Steve Coronel on 06-21-2022 ALT No additional P-5'-P [Catalytic activity/Vol] 17 U/L 10-60 [facility] Serum or plasma albumin/glob ulin mass ratioOrdered By: Steve Coronel on 06-21-2022 Albumin/Globulin [Mass ratio] 1.2 {ratio} [facility] Serum or plasma alkaline chirag sphatase measurement (enzymatic activity/volume)Ordered By: Steve Coronel on 06-21-2022 ALP [Catalytic activity/Vol] 52 U/L 32-92 [facility] Serum or plasma anion gap de terminationOrdered By: Steve Coronel on 06-21-2022 Anion gap [Moles/Vol] 12.7 mmol/L 6.0-15.0 [facility] Serum or plasma aspartate am inotransferase measurement (enzymatic activity/volume)Ordered By: Steve Coronel on 06-21-2022 AST [Catalytic activity/Vol] 19 U/L 10-42 [facility] Serum or plasma calcium merari urement (mass/volume)Ordered By: Steve Coronel on 06-21-2022 Calcium [Mass/Vol] 9.1 mg/dL 8.2-10.2 [facility] Serum or plasma chloride lisa surement (moles/volume)Ordered By: Steve Coronel on 06-21-2022 Chloride [Moles/Vol] 100 mmol/L 95-114 [facility] Serum or plasma glucose merari urement (mass/volume)Ordered By: Steve Coronel on 06-21-2022 Glucose [Mass/Vol] 97 mg/dL 70-100 [facility] Comment on above: ADA recommended refe rence rangeRandom Glucose Reference Range is dependent on time and content of last meal. Glucose of more than 200 mg/dL in a nonstressed, ambulatory subject supports the diagnosis of Diabetes Mellitus. Serum or plasma potassium me asurement (moles/volume)Ordered By: Steve Coronel on 06-21-2022 Potassium [Moles/Vol] 3.9 mmol/L 3.5-5.1 [facility] Serum or plasma sodium measu rement (moles/volume)Ordered By: Steve Coronel on 06-21-2022 Sodium [Moles/Vol] 135 mmol/L 136-146 [facility] Serum or plasma total biliru bin measurement (mass/volume)Ordered By: Steve Coronel on 06-21-2022 Bilirubin [Mass/Vol] 0.6 mg/dL 0.3-1.2 [facility] Serum or plasma total carbon dioxide measurement (moles/volume)Ordered By: Steve Coronel on 06-21-2022 CO2 [Moles/Vol] 26.2 mmol/L 22.0-30.0 [facility] Serum or plasma urea nitroge n measurement (mass/volume)Ordered By: Steve Coronel on 06-21-2022 Urea nitrogen [Mass/Vol] 8 mg/dL 9- [facility] Specific gravity Auto test s trip (U) [Rel density]Ordered By: Steve Coronel on 06-21-2022 Specific gravity (U) [Rel density] 1.005 1.001-1.030 [facility] Troponin I.cardiac [Mass/vol ume] in Serum or Plasma by High sensitivity methodOrdered By: Steve Coronel on 06-21-2022 Troponin I.cardiac High sensitivity method [Mass/Vol] < 3 pg/mL 0-15 [facility] Urine clarity by refractomet ry automatedOrdered By: Steve Coronel on 06-21-2022 Clarity Refractometry automated (U) Clear Clear [facility] Urine glucose measurement by automated test strip (mass/volume)Ordered By: Steve Coronel on 06-21-2022 Glucose Auto test strip (U) [Mass/Vol] Normal mg/dL Normal [facility] Urine hemoglobin detection b y automated test stripOrdered By: Steve Coronel on 06-21-2022 Hemoglobin Auto test strip Ql (U) Negative Negative [facility] Urine leukocyte esterase det ection by automated test stripOrdered By: Steve Coronel on 06-21-2022 Leukocyte esterase Auto test strip Ql (U) Negative Negative [facility] Urobilinogen Auto test strip (U) [Mass/Vol]Ordered By: Steve Coronel on 06-21-2022 Urobilinogen (U) [Mass/Vol] Normal mg/dL Normal [facility] WBC Auto (Bld) [#/Vol]Ordere d By: Steve Coronel on 06-21-2022 WBC (Bld) [#/Vol] 9.5 10*3/uL 3.8-11.6 [facility] pH Auto test strip (U)Ordere d By: Steve Coronel on 06-21-2022 pH (U) 7.5 [pH] 5.0-9.0 [facility] Office Visit (Cardiology)on 06-04-2022 Follow-up visit [...] and no (more content not included)... Normal [employer] COVID + FLU Quick Testingon 04-28-2022 SARS-CoV-2 (COVID-19) RNA CESAR+probe Ql (Unsp spec) Positive [employer] Other COVID + FLU Quick Testing Negative [employer] Other Quick Strepon 04-28-2022 S. 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 The Pap test does not represent a final diagnostic test for cervical cancer. Furthermore, the Pap test was not designed to screen for other malignancies (endometrial, ovarian cancer, etc....). False negatives and false positives have occurred. If clinically indicated, further patient evaluation is recommended. [facility] Vital Signs Date Time Vital Sign Value Performing Clinician Facility 03-07-2024 11:08-0400 Body mass index (BMI) [Ratio] 41.97 kg/m2 [facility] 03-07-2024 [id number] Body weight 121.56 kg [facility] 03-07-2024 11:08-0400 Diastolic blood pressure 88 mm[Hg] [facility] 03-07-2024 11:08-0400 Heart rate 91 /min [facility] 03-07-2024 11:08-0400 SaO2% (BldA) [Mass fraction] 98 % [facility] 03-07-2024 11:08-0400 Systolic blood pressure 138 mm[Hg] [facility] 02-28-2024 09:45-0400 Body height 170.2 cm Kenyetta Dove MD Work Phone: [facility] 02-28-2024 09:45-0400 Body mass index (BMI) [Ratio] 41.97 kg/m2 Kenyetta Dove MD Work Phone: [facility] 02-28-2024 09:45-0400 Body weight 121.56 kg Kenyetta Dove MD Work Phone: [facility] 02-28-2024 09:45-0400 Diastolic blood pressure 84 mm[Hg] Kenyetta Dove MD Work Phone: [facility] 02-28-2024 09:45-0400 Heart rate 78 /min Kenyetta Dove MD Work Phone: [facility] 02-28-2024 09:45-0400 Respiratory rate 18 /min Kenyetta Dove MD Work Phone: [facility] 02-28-2024 09:45-0400 Systolic blood pressure 126 mm[Hg] Kenyetta Dove MD Work Phone: [facility] 12-05-2023 11:42-0400 Body height 170.18 cm DO Melissa Cromley II Work Phone: [facility] 12-05-2023 11:42-0400 Body mass index (BMI) [Ratio] 40.7 kg/m2 DO Melissa Cromley II Work Phone: [facility] 12-05-2023 11:42-0400 Body temperature 98.2 [degF] DO Melissa Cromley II Work Phone: [facility] 12-05-2023 11:42-0400 Body weight 117.93 kg DO Melissa Cromley II Work Phone: [facility] 12-05-2023 11:42-0400 Diastolic blood pressure 94 mm[Hg] DO Melissa Cromley II Work Phone: [facility] 12-05-2023 11:42-0400 Heart rate 78 /min DO Melissa Cromley II Work Phone: [facility] 12-05-2023 11:42-0400 SaO2% (BldA) [Mass fraction] 94 % DO Melissa Cromley II Work Phone: [facility] 12-05-2023 11:42-0400 Systolic blood pressure 138 mm[Hg] DO Melissa Cromley II Work Phone: [facility] 10-03-2023 11:47-0400 Body height 170.18 cm DO Melissa Cromley II Work Phone: [facility] 10-03-2023 11:47-0400 Body mass index (BMI) [Ratio] 45.2 kg/m2 DO Melissa Cromley II Work Phone: [facility] 10-03-2023 11:47-0400 Body weight 131 kg DO Melissa Cromley II Work Phone: [facility] 09-20-2023 11:34-0400 Body height 170.18 cm DO Melissa Cromley II Work Phone: [facility] 09-20-2023 11:34-0400 Body temperature 98.1 [degF] DO Melissa Cromley II Work Phone: [facility] 09-20-2023 11:34-0400 Body weight 131.9 kg DO Melissa Cromley II Work Phone: [facility] 09-20-2023 11:34-0400 Diastolic blood pressure 101 mm[Hg] DO Melissa Cromley II Work Phone: [facility] 09-20-2023 11:34-0400 Heart rate 86 /min DO Melissa Cromley II Work Phone: [facility] 09-20-2023 11:34-0400 Respiratory rate 19 /min DO Melissa Cromley II Work Phone: [facility] 09-20-2023 11:34-0400 SaO2% (BldA) [Mass fraction] 97 % DO Melissa Cromley II Work Phone: [facility] 09-20-2023 11:34-0400 Systolic blood pressure 167 mm[Hg] DO Melissa Cromley II Work Phone: [facility] 07-22-2023 10:32-0500 Body temperature 98.2 [degF] DO Melissa Cromley II Work Phone: [facility] 07-22-2023 10:32-0500 Diastolic blood pressure 78 mm[Hg] DO Melissa Cromley II Work Phone: [facility] 07-22-2023 10:32-0500 Heart rate 79 /min DO Melissa Cromley II Work Phone: [facility] 07-22-2023 10:32-0500 Respiratory rate 16 /min DO Melissa Cromley II Work Phone: [facility] 07-22-2023 10:32-0500 SaO2% (BldA) [Mass fraction] 96 % DO Melissa Cromley II Work Phone: [facility] 07-22-2023 10:32-0500 Systolic blood pressure 132 mm[Hg] DO Melissa Cromley II Work Phone: [facility] 07-22-2023 08:20-0500 Body height 170.18 cm DO Melissa Anastasiamley II Work Phone: [facility] 07-22-2023 08:20-0500 Body weight 124.2 kg DO Melissa Anastasiamley II Work Phone: [facility] 07-08-2023 14:25-0500 Body height 170.18 cm Roula James Other [employer] Other 07-08-2023 14:25-0500 Body mass index (BMI) [Ratio] 42.28 kg/m2 Roula James Other [employer] Other 07-08-2023 14:25-0500 Body temperature 99.6 [degF] Roula James Other [employer] Other 07-08-2023 14:25-0500 Body weight 122.47 kg Roula James Other [employer] Other 07-08-2023 14:25-0500 Diastolic blood pressure 85 mm[Hg] Roula James Other [employer] Other 07-08-2023 14:25-0500 SaO2% (BldA) [Mass fraction] 96 % Roula James Other [facility] [employer] Other 07-08-2023 14:25-0500 Systolic blood pressure 140 mm[Hg] Roula Ramirez Other [facility] [employer] Other 03-29-2023 10:13-0400 Diastolic blood pressure 98 mm[Hg] PHYSICIAN NO [facility] 03-29-2023 10:13-0400 Heart rate 70 /min PHYSICIAN NO [facility] 03-29-2023 10:13-0400 Respiratory rate 20 /min PHYSICIAN NO [facility] 03-29-2023 10:13-0400 SaO2% (BldA) [Mass fraction] 98 % PHYSICIAN NO [facility] 03-29-2023 10:13-0400 Systolic blood pressure 167 mm[Hg] PHYSICIAN NO [facility] 03-29-2023 08:29-0400 Body height 170.18 cm PHYSICIAN NO [facility] 03-29-2023 08:29-0400 Body weight 120.2 kg PHYSICIAN NO [facility] 03-27-2023 13:45-0400 Body height 170.18 cm Oscar Reed Other [facility] [employer] Other 03-27-2023 13:45-0400 Body mass index (BMI) [Ratio] 42.03 kg/m2 Oscar Reed Other [facility] [employer] Other 03-27-2023 13:45-0400 Body temperature 98.1 [degF] Oscar Reed Other [facility] [employer] Other 03-27-2023 13:45-0400 Body weight 121.75 kg Oscar Reed Other [employer] Other 03-27-2023 13:45-0400 Diastolic blood pressure 92 mm[Hg] Oscar Reed Other [employer] Other 03-27-2023 13:45-0400 Respiratory rate 18 /min Oscar Reed Other [employer] Other 03-27-2023 13:45-0400 SaO2% (BldA) [Mass fraction] 97 % Oscar Reed Other [employer] Other 03-27-2023 13:45-0400 Systolic blood pressure 156 mm[Hg] Oscar Reed Other [employer] Other 02-17-2023 13:15-0400 Body height 170.18 cm Beny Alvarez Other [employer] Other 02-17-2023 13:15-0400 Body mass index (BMI) [Ratio] 42.03 kg/m2 Beny Alvarez Other [employer] Other 02-17-2023 13:15-0400 Body weight 121.75 kg Beny Alvarez Other [employer] Other 02-17-2023 13:15-0400 Diastolic blood pressure 79 mm[Hg] Beny Alvarez Other [employer] Other 02-17-2023 13:15-0400 Systolic blood pressure 139 mm[Hg] Beny Alvarez Other [employer] Other 01-24-2023 10:47-0400 Diastolic blood pressure 84 mm[Hg] DO Donya Billings Work Phone: [facility] 01-24-2023 10:47-0400 Heart rate 94 /min DO Donya Billings Work Phone: [facility] 01-24-2023 10:47-0400 Respiratory rate 20 /min DO Donya Billings Work Phone: [facility] 01-24-2023 10:47-0400 SaO2% (BldA) [Mass fraction] 98 % DO Donya Blilings Work Phone: [facility] 01-24-2023 10:47-0400 Systolic blood pressure 181 mm[Hg] DO Donya Billings Work Phone: [facility] 01-24-2023 09:58-0400 Body height 170.18 cm DO Donya Billings Work Phone: [facility] 01-24-2023 09:58-0400 Body temperature 98 [degF] DO Donya Billings Work Phone: [facility] 01-24-2023 09:58-0400 Body weight 122.75 kg DO Donya Billings Work Phone: [facility] 12-30-2022 23:30-0400 Diastolic blood pressure 84 mm[Hg] DO Donya Billings Work Phone: [facility] 12-30-2022 23:30-0400 Heart rate 81 /min DO Donya Billings Work Phone: [facility] 12-30-2022 23:30-0400 Respiratory rate 20 /min DO Donya Billings Work Phone: [facility] 12-30-2022 23:30-0400 SaO2% (BldA) [Mass fraction] 98 % DO Donya Billings Work Phone: [facility] 12-30-2022 23:30-0400 Systolic blood pressure 176 mm[Hg] DO Donya Billings Work Phone: [facility] 12-30-2022 17:21-0400 Body height 170.18 cm DO Donya Billings Work Phone: [facility] 12-30-2022 17:21-0400 Body temperature 97.6 [degF] DO Donya Billings Work Phone: [facility] 12-30-2022 17:21-0400 Body weight 122.1 kg DO Donya Billings Work Phone: [facility] 12-20-2022 16:32-0400 Diastolic blood pressure 87 mm[Hg] DO Donya Billings Work Phone: [facility] 12-20-2022 16:32-0400 Heart rate 80 /min DO Donya Billings Work Phone: [facility] 12-20-2022 16:32-0400 Respiratory rate 18 /min DO Donya Billings Work Phone: [facility] 12-20-2022 16:32-0400 SaO2% (BldA) [Mass fraction] 98 % DO Donya Billings Work Phone: [facility] 12-20-2022 16:32-0400 Systolic blood pressure 137 mm[Hg] DO Donya Billings Work Phone: [facility] 12-20-2022 12:47-0400 Body height 170.18 cm DO Donya Billings Work Phone: [facility] 12-20-2022 12:47-0400 Body temperature 98.7 [degF] DO Donya Billings Work Phone: [facility] 12-20-2022 12:47-0400 Body weight 121.5 kg DO Donya Billings Work Phone: [facility] 12-08-2022 08:50-0400 Body height 170.18 cm Donya Billings Work Phone: [facility] [address] DO Work Phone: 12-08-2022 08:50-0400 Body mass index (BMI) [Ratio] 42.29 kg/m2 Donya Billings Work Phone: [facility] [address] DO Work Phone: 12-08-2022 08:50-0400 Body surface area Derived from formula 2.3 m2 Donya Billings Work Phone: [facility] [address] DO Work Phone: 12-08-2022 08:50-0400 Body weight 122.47 kg Donya S Awa Work Phone: [facility] [address] DO Work Phone: 12-08-2022 08:50-0400 Diastolic blood pressure 80 mm[Hg] Donya Billings Work Phone: [facility] [address] DO Work Phone: 12-08-2022 08:50-0400 Heart rate 80 /min Donya Billings Work Phone: [facility] [address] DO Work Phone: 12-08-2022 08:50-0400 Systolic blood pressure 128 mm[Hg] Donya Billings Work Phone: [facility] [address] DO Work Phone: 11-06-2022 00:59-0400 Diastolic blood pressure 68 mm[Hg] DO Donya Billings Work Phone: [facility] 11-06-2022 00:59-0400 Heart rate 86 /min DO Donya Billings Work Phone: [facility] 11-06-2022 00:59-0400 Respiratory rate 19 /min DO Donya Billings Work Phone: [facility] 11-06-2022 00:59-0400 SaO2% (BldA) [Mass fraction] 99 % DO Donya Billings Work Phone: [facility] 11-06-2022 00:59-0400 Systolic blood pressure 139 mm[Hg] DO Donya Billings Work Phone: [facility] 11-05-2022 20:12-0400 Body height 170.18 cm DO Donya Billings Work Phone: [facility] 11-05-2022 20:12-0400 Body temperature 97.9 [degF] DO Donya Billings Work Phone: [facility] 11-05-2022 20:12-0400 Body weight 122.95 kg DO Donya Billings Work Phone: [facility] 10-13-2022 10:03-0400 Body height 170.18 cm Donya Billings Work Phone: [facility] [address] [place] Work Phone: 10-13-2022 10:03-0400 Body mass index (BMI) [Ratio] 41.98 kg/m2 Donya Billings Work Phone: [facility] [address] [place] Work Phone: 10-13-2022 10:03-0400 Body surface area Derived from formula 2.29 m2 Donya Billings Work Phone: [facility] [address] [place] Work Phone: 10-13-2022 10:03-0400 Body weight 121.56 kg Donya Billings Work Phone: [facility] [address] [place] Work Phone: 10-13-2022 10:03-0400 Diastolic blood pressure 68 mm[Hg] Donya Billings Work Phone: [facility] [address] [place] Work Phone: 10-13-2022 10:03-0400 Heart rate 68 /min Donya Billings Work Phone: [facility] [address] [place] Work Phone: 10-13-2022 10:03-0400 Systolic blood pressure 122 mm[Hg] Donya Billings Work Phone: [facility] [address] [place] Work Phone: 09-01-2022 14:30-0400 Body height 170.18 cm Oliver Mario Other [facility] [employer] Other 09-01-2022 14:30-0400 Body mass index (BMI) [Ratio] 41.97 kg/m2 Oliver Mario Other [employer] Other 09-01-2022 14:30-0400 Body weight 121.56 kg Oliver Mario Other [facility] [employer] Other 09-01-2022 14:30-0400 Diastolic blood pressure 96 mm[Hg] Oliver Mario Other [facility] [employer] Other 09-01-2022 14:30-0400 Systolic blood pressure 159 mm[Hg] Oliver Mario Other [facility] [employer] Other 07-28-2022 13:20-0500 Body height 170.18 cm Donya Billings Work Phone: [employer] [facility] DO Work Phone: 07-28-2022 13:20-0500 Body mass index (BMI) [Ratio] 42.13 kg/m2 Donya Billings Work Phone: [employer] [facility] DO Work Phone: 07-28-2022 13:20-0500 Body surface area Derived from formula 2.29 m2 Donya Billings Work Phone: [employer] [facility] [facility] DO Work Phone: 07-28-2022 13:20-0500 Body weight 122.02 kg Donya Billings Work Phone: [employer] [address] DO Work Phone: 07-28-2022 13:20-0500 Diastolic blood pressure 68 mm[Hg] Donya Billings Work Phone: [facility] [address] DO Work Phone: 07-28-2022 13:20-0500 Heart rate 78 /min Donya Billings Work Phone: [facility] DO Work Phone: 07-28-2022 13:20-0500 Systolic blood pressure 142 mm[Hg] Donya Billings Work Phone: [facility] [facility] DO Work Phone: 06-21-2022 13:10-0500 Diastolic blood pressure 79 mm[Hg] DO Donya Billings Work Phone: [facility] 06-21-2022 13:10-0500 Heart rate 75 /min DO Donya Billings Work Phone: [facility] 06-21-2022 13:10-0500 Respiratory rate 18 /min DO Donya Billings Work Phone: [facility] 06-21-2022 13:10-0500 SaO2% (BldA) [Mass fraction] 98 % DO Donya Billings Work Phone: [facility] 06-21-2022 13:10-0500 Systolic blood pressure 164 mm[Hg] DO Donya Billings Work Phone: [facility] 06-21-2022 10:26-0500 Body temperature 98.7 [degF] DO Donya Billings Work Phone: [facility] 05-12-2022 16:00-0500 Body height 170.18 cm Oliver Mario Other [facility] [employer] Other 05-12-2022 16:00-0500 Body mass index (BMI) [Ratio] 41.81 kg/m2 Oliver Mario Other [facility] [employer] Other 05-12-2022 16:00-0500 Body weight 121.11 kg Oliver Mario Other [employer] Other 05-12-2022 16:00-0500 Diastolic blood pressure 89 mm[Hg] Oliver Mario Other [employer] Other 05-12-2022 16:00-0500 Systolic blood pressure 139 mm[Hg] Oliver Mario Other [employer] Other 04-28-2022 16:00-0500 Body height 170.18 cm Oscar Reed Other [employer] Other 04-28-2022 16:00-0500 Body mass index (BMI) [Ratio] 39.93 kg/m2 Oscar Reed Other [employer] Other 04-28-2022 16:00-0500 Body temperature 97.9 [degF] Oscar Reed Other [employer] Other 04-28-2022 16:00-0500 Body weight 115.67 kg Oscar Reed Other [employer] Other 04-28-2022 16:00-0500 Diastolic blood pressure 88 mm[Hg] Oscar Reed Other [employer] Other 04-28-2022 16:00-0500 Respiratory rate 18 /min Oscar Reed Other [employer] Other 04-28-2022 16:00-0500 SaO2% (BldA) [Mass fraction] 97 % Oscar Reed Other [employer] Other 04-28-2022 16:00-0500 Systolic blood pressure 139 mm[Hg] Oscar Reed Other [employer] Other Encounters Encounter Date Encounter Type Care Provider Facility Start: 03-07-2024 End: 03-07-2024 Patient encounter procedure [facility] Nurse Charter Coordinator[facility] Comment on above: Bursitis of other bu rsa of right hip Start: 03-07-2024 End: 03-07-2024 ambulatory MELISSA COON [facility] Comment on above: Bursitis of other bu rsa of right hip (Primary Dx) Start: 02-28-2024 End: 02-28-2024 Bamboo flowsheet Kenyetta Dove MD Work Phone: [facility] Start: 02-28-2024 End: 02-28-2024 Bamfrancesca flowsheet Kenyetta Dove MD Work Phone: [facility] Start: 02-28-2024 End: 02-28-2024 Office outpatient visit 25 minutes Kenyetta Dove MD Work Phone: [facility] Comment on above: Postoperative hypoth yroidism (CMS/HCC) (Primary Dx); Encounter for dietary consultation; Vitamin D deficiency; Class 3 severe obesity without serious comorbidity with body mass index (BMI) of 40.0 to 44.9 in adult, unspecified obesity type (CMS/HCC) Start: 02-28-2024 End: 02-28-2024 ambulatory KENYETTA DOVE Not Available Start: 02-21-2024 End: 02-21-2024 Patient encounter procedure DO Melissa Singh II Work Phone: [facility] Work Phone: Start: 02-21-2024 End: 02-21-2024 ambulatory DO Melissa Singh II Work Phone: [facility] Work Phone: Start: 02-13-2024 End: 02-13-2024 ambulatory Willian Jensen MD Facility:[facility] Start: 02-01-2024 End: 02-01-2024 Patient encounter procedure DO Melissa Cromley II Work Phone: [facility] Work Phone: Start: 02-01-2024 End: 02-01-2024 ambulatory DO Melissa J Cromley II Work Phone: [facility] Work Phone: Start: 01-24-2024 End: 01-24-2024 ambulatory MELISSA Kyler SHAGGY Not Available Start: 01-23-2024 End: 01-23-2024 ambulatory Willian Jensen MD Facility:[facility] Start: 01-20-2024 End: 01-20-2024 Patient encounter procedure DO Melissa Anastasiamley II Work Phone: [facility] Work Phone: Start: 01-20-2024 End: 01-20-2024 ambulatory DO Melissa J Cromley II Work Phone: [facility] Work Phone: Start: 01-10-2024 End: 01-10-2024 ambulatory DO Melissa J Stephanieey Facility:[facility] Start: 01-09-2024 ambulatory Zeinab Galicia Facility :[facility] Start: 01-09-2024 End: 01-09-2024 ambulatory Willian Jensen MD Facility:[facility] Start: 01-02-2024 End: 01-02-2024 ambulatory Willian Jensen MD Facility:[facility] Start: 12-05-2023 End: 12-05-2023 ambulatory DO Melissa J Cromley II Work Phone: [facility] Work Phone: Start: 12-05-2023 End: 12-05-2023 Patient encounter procedure DO Melissa Cromley II Work Phone: [facility] [place] Work Phone: Start: 12-05-2023 End: 12-05-2023 ambulatory Willian Jensen MD Facility: [facility] Start: 11-16-2023 ambulatory Donya Menon y:[facility] Start: 10-12-2023 ambulatory COMPLEX CARE NURSE-C BECKY AGUIRRE Facility:[facility] Start: 10-11-2023 End: 10-11-2023 ambulatory DO Melissa J Cromley Facility:[facility] Start: 10-10-2023 End: 10-10-2023 ambulatory Willian Jensen MD Facility: [facility] Start: 10-03-2023 End: 10-03-2023 ambulatory DO Melissa J Cromley II Work Phone: [facility] Work Phone: Start: 10-03-2023 End: 10-03-2023 Patient encounter procedure DO Melissa Cromley II Work Phone: [facility] Work Phone: Start: 09-21-2023 End: 09-21-2023 ambulatory DO Melissa J Cromley Facility:[facility] Start: 09-20-2023 End: 09-20-2023 Emergency department patient visit DO Melissa Cromley II Work Phone: [facility] Work Phone: Start: 09-06-2023 End: 09-06-2023 ambulatory DO Melissa J Cromley Facility:[facility] Start: 08-16-2023 End: 08-16-2023 Patient encounter procedure DO Melissa Cromley II Work Phone: [facility] [place] Work Phone: Start: 08-16-2023 End: 08-16-2023 ambulatory DO Melissa J Cromley II Work Phone: [facility] Work Phone: Start: 07-28-2023 End: 07-28-2023 Patient encounter procedure DO Melissa Singh II Work Phone: [facility] [place] Work Phone: Start: 07-28-2023 End: 07-28-2023 ambulatory Melissa Singh II Facility:[facility] Start: 07-28-2023 End: 07-28-2023 ambulatory Franklyn MADERA Facility:[facility] Start: 07-26-2023 End: 07-26-2023 ambulatory DO Melissa Singh Facility:[facility] Start: 07-22-2023 End: 07-22-2023 Emergency department patient visit DO Melissa Singh II Work Phone: [facility] Work Phone: Start: 07-08-2023 End: 07-08-2023 ambulatory Roula James Other [employer] Other Start: 07-08-2023 Office outpatient visit 15 minutes Roula James [facility] Start: 07-08-2023 Telephone encounter Stephie Brambila MD Work Phone: Rheumatology Start: 06-28-2023 End: 06-28-2023 ambulatory DO Melissa Brownrubin Facility:[facility] Start: 06-14-2023 End: 06-14-2023 ambulatory Beny Alvarez Other [employer] Other Start: 06-14-2023 Telephone encounter Beny Marques ck [facility] Start: 05-24-2023 End: 05-24-2023 ambulatory [facility] Facility:[facility] Start: 05-19-2023 End: 05-19-2023 ambulatory [facility] Facility:[facility] Start: 05-17-2023 End: 05-18-2023 ambulatory [facility] Facility:[facility] Start: 05-10-2023 End: 05-10-2023 ambulatory DO Melissa Hugo Brownrubin Facility:[facility] Start: 04-14-2023 End: 04-14-2023 ambulatory DO Melissa Singh Facility:[facility] Start: 04-11-2023 End: 04-11-2023 ambulatory MARLYN Schmidt Facility:[facility] Start: 03-29-2023 End: 03-29-2023 Admission to same day surgery center PHYSICIAN NO [facility] Work Phone: Start: 03-29-2023 End: 03-29-2023 ambulatory PHYSICIAN NO [facility] Work Phone: Start: 03-28-2023 End: 03-28-2023 ambulatory COMPLEX CARE NURSE-C BECKY AGUIRRE Facility:[facility] Start: 03-27-2023 End: 03-27-2023 ambulatory Oscar Reed Other [employer] Other Start: 03-27-2023 Office outpatient visit 15 minutes Oscar Reed [facility] Start: 03-17-2023 End: 03-17-2023 Patient encounter procedure PHYSICIAN NO [facility] [place] Work Phone: Start: 03-17-2023 End: 03-17-2023 ambulatory PHYSICIAN [facility] Work Phone: Start: 03-11-2023 End: 03-11-2023 ambulatory DO Melissa Singh Facility:[facility] Start: 03-08-2023 End: 03-08-2023 ambulatory MARLYN Schmidt Facility:[facility] Start: 02-17-2023 End: 02-17-2023 Patient encounter procedure PHYSICIAN NO [facility] [place] Work Phone: Start: 02-17-2023 End: 02-17-2023 ambulatory PHYSICIAN [facility] Work Phone: Start: 02-17-2023 Office outpatient visit 25 minutes Beny Alvarez [facility] Start: 02-16-2023 End: 02-16-2023 ambulatory MARLYN Schmidt Facility:[facility] Start: 02-02-2023 End: 02-02-2023 ambulatory Donya OZUNA Facility: [place] Start: 01-27-2023 End: 01-27-2023 ambulatory Franklyn MADERA Facility:[facility] Start: 01-26-2023 End: 01-26-2023 ambulatory TAVO A STEVEN Facility:[facility] Start: 01-24-2023 Chart Update Donya Ashraf Gran t Work Phone: -[facility] 600 DO Work Phone: Start: 01-24-2023 End: 01-24-2023 Emergency department patient visit DO Donya Billings Work Phone: [facility] Work Phone: Start: 01-21-2023 End: 01-21-2023 ambulatory DO Donya Billings Work Phone: [facility] Work Phone: Start: 01-21-2023 End: 01-21-2023 Patient encounter procedure DO Donya Billings Work Phone: [facility] [address] Work Phone: Start: 01-21-2023 End: 04-24-2023 ambulatory [employer] DIRECTOR [employer] HOME HE[employer] SALES Roula Schmidt Facility:[facility] Start: 01-18-2023 End: 01-18-2023 ambulatory Kilo Williamson Facility:[facility] Start: 12-30-2022 End: 12-30-2022 Emergency department patient visit DO Donya Billings Work Phone: [facility] Work Phone: Start: 12-29-2022 End: 12-29-2022 ambulatory DO Donya Billings Work Phone: [facility] Work Phone: Start: 12-29-2022 End: 12-29-2022 Patient encounter procedure DO Donya Billings Work Phone: [facility] Work Phone: Start: 12-20-2022 End: 12-20-2022 Emergency department patient visit DO Donya Awa Work Phone: [facility] Work Phone: Start: 12-08-[address] Phillip Benjamin Facility: Start: 12-08-2022 FU, Provider: Phillip Benjamin, Status: Pen, Time: 8:40 AM Donya Billings Work Phone: [facility] 250 DO Work Phone: Start: 12-08-2022 Office outpatient visit 25 minutes Donya Billings Work Phone: [facility] 250 DO Work Phone: Start: 12-06-2022 Chart Update Donya madera Work Phone: [facility] 250 DO Work Phone: Start: 11-25-[address] Donya Harvey Awa Facility:[id number] Start: 11-05-2022 End: 11-06-2022 Emergency department patient visit DO Donya Billings Work Phone: [facility] Work Phone: Start: 10-31-2022 Chart Update Donya madera Work Phone: [facility] [address] [place] Work Phone: Start: 10-28-[address] Donya Harvey Awa Facility:[id number] Start: 10-13-2022 Office outpatient visit 25 minutes Donya Billings Work Phone: [facility] Work Phone: Start: 10-13-[address] Donya [place] Facility:[id number] Start: 10-07-2022 End: 10-08-[address] DONYA BILLINGS Facility:[facility] Start: 10-01-2022 End: 10-02-2022 ambulatory UNKNOWN PROVIDER Facility:[facility] Start: 10-01-2022 End: 10-01-2022 Subsequent hospital visit by physician Shannan [facility] Radiology Comment on above: Thoracic spine pain Start: 09-30-2022 Orders Only Javad velez MD Work Phone: [facility] Start: 09-17-2022 End: 09-17-2022 Orders Only Javad Leach MD Work Phone: [facility] Start: 09-17-2022 End: 09-17-2022 Patient encounter procedure DO Donya Billings Work Phone: [facility] [address] Work Phone: Start: 09-02-2022 End: 09-06-2022 ambulatory UNKNOWN PROVIDER Facility:[facility] Start: 09-02-2022 End: 09-06-2022 Office outpatient new 45 minutes Javad Leach MD Work Phone: [facility] Comment on above: Thoracic spine pain (Primary Dx) Start: 09-01-2022 End: 09-01-2022 ambulatory Oliver Mario Other [employer] Other Start: 09-01-2022 Patient encounter procedure Oliver Mario [facility] Start: 08-24-2022 Orders Only Javad velez MD Work Phone: [facility] Neurosurgery Start: 08-10-2022 End: 08-10-2022 ambulatory DO Donya Billings Work Phone: [facility] Work Phone: Start: 08-10-2022 End: 08-10-2022 Patient encounter procedure DO Donya Billings Work Phone: [facility] [place] Work Phone: Start: 07-28-2022 FUV, Provider: Phillip Benjamin, Status: Pen, Time: 1:10 PM Donya Billings Work Phone: [facility] 250 DO Work Phone: Start: 07-28-2022 Office outpatient visit 25 minutes Donya Billings Work Phone: [facility] 250 DO Work Phone: Start: 07-28-[address] Phillip Benjamin Facility: Start: 07-26-2022 Chart Update Donya Telles cassy Work Phone: [facility] 250 DO Work Phone: Start: 07-16-[address] Donya Harvey Awa Facility:[id number] Start: 07-15-2022 End: 07-16-[address] ZHANE MANTILLA . Facility: Start: 07-13-2022 End: 07-13-2022 ambulatory Oliver Mario Other [employer] Other Start: 07-13-2022 Telephone encounter Oliver CABEZAS [facility] Start: 06-21-2022 End: 06-21-2022 Emergency department patient visit DO Donya Billings Work Phone: [facility] Work Phone: Start: 06-15-2022 End: 06-15-2022 ambulatory DO Donya Billings Work Phone: [facility] Work Phone: Start: 06-15-2022 End: 06-15-2022 Patient encounter procedure DO Donya Billings Work Phone: [facility] Work Phone: Start: 06-04-[address] Phillip Benjamin Facility: Start: 05-12-2022 End: 05-12-2022 ambulatory Oliver Mario Other [employer] Other Start: 05-12-2022 Patient encounter procedure Oliver Fabiano [facility] Start: 05-04-2022 End: 05-04-2022 ambulatory DO Donya Billings Work Phone: [facility] Work Phone: Start: 05-04-2022 End: 05-04-2022 Patient encounter procedure DO Donya Billings Work Phone: [facility] [address] Start: 04-28-2022 End: 04-28-2022 ambulatory Oscar Reed Other [facility] [employer] Other Start: 04-28-2022 Office outpatient visit 15 minutes Oscar Reed [facility] Ur[facility] Start: 04-15-2022 End: 04-16-[address] ZHANE [...] 04-04-1998 Patient encounter procedure Conversion Yamel Benson [facility] Start: 04-04-1998 Results Only Conversion Yamel Benson [facility] Procedures Date Procedure Procedure Detail Performing Clinician Start: 01-20-2024 Screening mammography of bilateral breasts DO Melissa Cromley II Work Phone: Start: 12-05-2023 COVID Antigen (POC) DO Melissa Cromley II Work Phone: Start: 09-20-2023 Plain X-ray of right shoulder DO Melissa Cromley II Work Phone: Start: 08-16-2023 MR thoracic spine wo con DO Melissa Croml ey II Work Phone: Start: 07-22-2023 Blood culture for bacteria, including anaerobic screen DO Melissa Singh II Work Phone: Start: 07-22-2023 SARS-CoV-2, Influenza & RSV (PCR) DO Kranthi Singh II Work Phone: Start: 07-22-2023 Plain chest X-ray DO Melissa Singh II Work Phone: Start: 03-29-2023 Esophagogastroduodenoscopy [...] DO Donya Billings Work Phone: Start: 12-29-2022 End: 12-29-2022 Screening mammography of bilateral breasts DO [...] MR thoracic spine wo con DO Donya Elfego madera Work Phone: Start: 05-04-2022 XR pre/post mri xray DO Donya Awa Work Phone: Start: 08-21-2012 Colonoscopy Kenyetta Dove MD Work Phone: Start: 04-04-1998 CONVERTED CYTOLOGY [employer] Conversion Beaker Ap section Donya mckenzie Work Phone: H/O: section Previous c esarean section DO Melissa Cromley II Work Phone: H/O: hysterectomy H/O: hysterectomy DO Ro aurora Cromley II Work Phone: History Of Prior Surgery Gre chantel Ashraf Awa Work Phone: History of thyroidectomy S/P thyroidectom y DO [employer] II Work Phone: Hysterectomy Donya Billings Work Phone: Procedure on back Donya Billings Work Phone: Thyroidectomy Donya S Elfego madera Work Phone: Total colonoscopy Donya Billings Work Phone: Plan of Treatment Date Care Activity Detail Author Start: 08-11-2027 Cholesterol [Mass/volume] in Serum or Plasma Cholesterol [facility] Start: 2027 Shingles (RZV) Vaccine (1 of 2) Shingles (RZV) Vaccine (1 of 2) [facility] Start: 05-19-2026 Diabetes Screening Diabetes Screening [facility] Start: 02-26-2025 End: 02-26-2025 Patient encounter procedure 02/26/2025 10:30 AM EDT Office Visit [facility] [address] [place] [phone] Kenyetta Dove MD [address] [place] [address] [facility] Start: 08-01-2024 End: 08-01-2024 Patient encounter procedure 08/01/2024 1:00 PM EST Office Visit [facility] [address] [place] [phone] Melissa Coon MD [address] [place] [address] [facility] Start: 02-28-2024 End: 02-27-2025 Thyrotropin [Units/volume] in Serum or Plasma TSH Lab Routine Postoperative hypothyroidism (CMS/HCC) Expected: 02/28/2024 (Approximate), Expires: 02/27/2025 [facility] Comment on above: Expected: 02/28/2024 (Approximate), Expi res: 02/27/2025 Start: 02-28-2024 End: 02-27-2025 Thyroxine (T4) free [Mass/volume] in Serum or Plasma T4, free Lab Routine Postoperative hypothyroidism (CMS/HCC) Expected: 02/28/2024 (Approximate), Expires: 02/27/2025 [facility] Comment on above: Expected: 02/28/2024 (Approximate), Expi res: 02/27/2025 Start: 02-28-2024 End: 02-27-2025 Triiodothyronine (T3) Free [Mass/volume] in Serum or Plasma T3, free Lab Routine Postoperative hypothyroidism (CMS/HCC) Expected: 02/28/2024 (Approximate), Expires: 02/27/2025 [facility] Work Phone: Comment on above: Expected: 02/28/2024 (Approximate), Expi res: 02/27/2025 Start: 02-28-2024 End: 02-28-2024 Patient encounter procedure 02/28/2024 9:50 AM EDT Office Visit [facility] [address] [place] [phone] Kenyetta Dove MD [address] [place] [address] Arrived [facility] Comment on above: Arrived Start: 01-29-2024 Influenza vaccination Influenza Vaccine (#1) [facility] Start: 12-30-2023 Screening for malignant neoplasm of breast [facility] Start: 11-08-2023 Screening for malignant neoplasm of cervix [facility] Start: 07-22-2023 Bacteria identified in Blood by Culture [facility] Start: 04-20-2023 FUV, Provider: Phillip Benjamin, Status: Pen, Time: 3:00 PM FUV, Provider: Phillip Benjamin, Status: Pen, Time: 3:00 PM [facility] 250 DO Work Phone: Start: 03-29-2023 [facility] Start: 03-29-2023 End: 03-29-2023 [facility] Start: 01-28-2023 Influenza vaccination Influenza Vaccine (#1) [facility] Start: 01-24-2023 Duplex scan of lower limb veins US venous duplex LE LT [facility] Start: 01-24-2023 US Lower extremity vein - left [facility] Start: 12-31-2022 Medicare Annual Wellness (AWV) Medicare Annual Wellness (AWV) [facility] Start: 12-30-2022 CT of head without contrast CT head/brain wo con [facility] Start: 12-30-2022 CT Unspecified body region WO contrast [facility] Start: 12-08-2022 FUV, Provider: Phillip Benjamin, Status: Pen, Time: 8:40 AM FUV, Provider: Phillip Benjamin, Status: Pen, Time: 8:40 AM [facility] [address] [place] Work Phone: Start: 12-02-2022 FUV, Provider: Phillip Benjamin, Status: Pen, Time: 3:00 PM FUV, Provider: Phillip Benjamin, Status: Pen, Time: 3:00 PM [facility] 250 DO Work Phone: Start: 11-25-2022 ECHO, Provider: [place] [facility] ,, Status: Pen, Time: 7:45 AM ECHO, Provider: [place] [facility] 01,[id number], Status: Pen, Time: 7:45 AM -[facility] [facility] [place] Work Phone: Start: 09-30-2022 End: 10-01-2023 DOWNLOAD POWERSHARE IMAGES TO EPIC DOWNLOAD POWERSHARE IMAGES TO EPIC Imaging Routine Thoracic spine pain Expected: 09/30/2022, Expires: 10/01/2023 [employer] Work Phone: Comment on above: Expected: 09/30/2022, Expires: Start: 09-17-2022 End: 09-18-2023 DOWNLOAD POWERSHARE IMAGES TO EPIC DOWNLOAD POWERSHARE IMAGES TO EPIC Imaging Routine Thoracic spine pain Expected: 09/17/2022, Expires: 09/18/2023 [employer] Work Phone: Comment on above: Expected: 09/17/2022, Expires: 4 Start: 09-06-2022 End: 09-07-2023 CT Thoracic spine WO contrast CT T-SPINE W/O CONTRAST Imaging Within 1 week Thoracic spine pain Expected: 09/06/2022, Expires: 09/07/2023 [employer] Work Phone: Comment on above: Expected: 09/06/2022, Expires: 4 Start: 09-02-2022 End: 09-02-2022 Patient encounter procedure 09/02/2022 Office Visit Orthopedics Javad Leach MD [address] [place] [id number] [facility] Start: 08-24-2022 End: 08-25-2023 DOWNLOAD POWERSHARE IMAGES TO EPIC DOWNLOAD POWERSHARE IMAGES TO EPIC Imaging Routine Cervical spondylosis with myelopathy Expected: 08/24/2022, Expires: 08/25/2023 [employer] Work Phone: Comment on above: Expected: 08/24/2022, Expires: Start: 08-21-2022 Screening for malignant neoplasm of colon [facility] Start: 08-10-2022 [facility] Start: 2022 Cholesterol [Mass/volume] in Serum or Plasma Cholesterol [facility] Start: 2022 Lipid panel Lipid Screening [facility] Start: 2022 Screening for malignant neoplasm of colon [facility] Start: 02-27-2022 Influenza vaccination Influenza Vaccine (#1) [facility] Start: 01-29-2020 Influenza vaccination INFLUENZA (#1) [facility] Start: 2017 Mammography MAMMOGRAM [facility] Start: 2017 Screening for malignant neoplasm of breast Mammography [facility] Start: 11-28-2015 Annual wellness visit Annual Wellness Visit (G0438) [facility] Start: 2007 HPV TESTING HPV TESTING [facility] Start: 2007 Screening for malignant neoplasm of cervix HPV Testing [facility] Start: 1998 PAP TESTING PAP TESTING [facility] Start: 1998 [facility] Start: 1996 Urine microalbumin profile DTAP,TDAP,TD (1 - Tdap) [facility] Start: 1995 ANNUAL PCP TEAM CHRONIC DISEASE VISIT ANNUAL PCP TEAM CHRONIC DISEASE VISIT [facility] Start: 1995 HEPATITIS C SCREENING HEPATITIS C SCREENING [facility] Start: 1995 Hepatitis C screening [facility] Start: 1995 HIV SCREENING HIV SCREENING [facility] Start: 1995 HIV screening HIV Screening [facility] Start: 1995 Tetanus + diphtheria + acellular pertussis vaccine (product) Tdap Booster [facility] Start: 1992 HIV screening HIV Test [facility] Start: 1988 Urine microalbumin profile DTaP,Tdap,Td Vaccine (4 - Tdap) [facility] Start: 1977 COVID-19 Vaccine (#1) COVID-19 Vaccine (#1) [facility] Start: 1977 Screening for malignant neoplasm of colon [facility] 25-hydroxyvitamin D2 [Mass/volume] in Serum or Plasma [facility] 25-hydroxyvitamin D3 [Mass/volume] in Serum or Plasma [facility] 25-Hydroxyvitamin D3+25-Hydroxyvitamin D2 [Mass/volume] in Serum or Plasma [facility] Albumin [Mass/volume ] in Serum or Plasma [facility] Albumin/Globulin ratio [facility] Borrelia burgdorferi Ab [Interpretation] in Serum [facility] Borrelia burgdorferi IgG Ab [Presence] in Serum or Plasma by Immunoassay [facility] Borrelia burgdorferi IgG+IgM Ab [Presence] in Serum by Immunoassay [facility] Borrelia burgdorferi IgM Ab [Presence] in Serum or Plasma by Immunoassay [facility] Cefuroxime free [Mass/volume] in Serum or Plasma [facility] Electrophoresis: [id number] [facility] Electrophoresis: [id number] [facility] Electrophoresis: beta-globulin [facility] Electrophoresis: raisa ma globulin [facility] Estrogen [Mass/volum e] in Serum or Plasma [facility] Globulin [Mass/volum e] in Serum [facility] Lutropin [Units/volu me] in Serum or Plasma [facility] Patient Education [facility] Work Phone: Patient referral [facility] Work Phone: Progesterone [Mass/volume] in Serum or Plasma [facility] Protein [Mass/volume ] in Serum or Plasma [facility] Rheumatoid factor [Units/volume] in Serum or Plasma [facility] Immunizations Immunization Date Immunization Notes Care Provider Watson deleon 06-05-2001 hepatitis B vaccine, adult dosage Donya Billings Work Phone: [facility] 250 DO Work Phone: 12-28-2000 hepatitis B vaccine, adult dosage Donya Billings Work Phone: [facility] 250 DO Work Phone: 11-21-2000 measles, mumps and rubella virus vaccine Donya Billings Work Phone: [facility] 250 DO Work Phone: 11-14-2000 hepatitis B vaccine, adult dosage Donya Billings Work Phone: [facility] DO Work Phone: 01-07-1983 measles, mumps and rubella virus vaccine Donya Billings Work Phone: [facility] Work Phone: 10-11-1979 diphtheria, tetanus toxoids and acellular pertussis vaccine, unspecified formulation Donya Billings Work Phone: [facility] DO Work Phone: 10-11-1979 poliovirus vaccine, inactivated Donya Billings Work Phone: [facility] DO Work Phone: 08-01-1979 diphtheria, tetanus toxoids and pertussis vaccine Donya Billings Work Phone: [facility] 250 DO Work Phone: 08-01-1979 poliovirus vaccine, inactivated Donya Billings Work Phone: [facility] DO Work Phone: 04-18-1979 diphtheria, tetanus toxoids and pertussis vaccine Donya Billings Work Phone: [facility] DO Work Phone: 05-13-1978 diphtheria, tetanus toxoids and pertussis vaccine Donya Billings Work Phone: [facility] 250 DO Work Phone: 05-13-1978 poliovirus vaccine, inactivated Donya Billings Work Phone: [facility] DO Work Phone: 1977 poliovirus vaccine, inactivated Donya Ashraf Awa Work Phone: [facility] DO Work Phone: Payers Date Payer Category Payer Self-pay [id number] 2022 Medicaid [id number] 2013 Medicare [id number] 1977 Unknown [id number] 2.16. 840.1.757984.3.579.2.732 1977 Unknown [id number] 2.16. 840.1.536963.3.579.2.732 1977 Unknown [id number] 2.16.84 0.1.230669.3.579.2.593 1977 Unknown [id number] 2.16.84 0.1.084715.3.579.2.593 1977 Unknown [id number] 2.16.84 0.1.480504.3.579.2.593 1977 Unknown [id number] 2.16.84 0.1.052819.3.579.2.593 1977 Unknown [id number] 2.16.84 0.1.928067.3.579.2.593 1977 Unknown [id number] 2.16.84 0.1.922831.3.579.2.593 1977 Unknown [id number] 2.16.84 0.1.950422.3.579.2.593 1977 Unknown [id number] 2.16.84 0.1.937190.3.579.2.593 1977 Unknown [id number] 2.16.8 40.1.140515.3.579.2.1068 1977 Unknown [id number] 2.16.8 40.1.922204.3.579.2.1068 1977 Unknown [id number] 2.16. 840.1.410163.3.579.2.356 1977 Unknown [id number] 2.16. 840.1.820831.3.579.2.356 1977 Unknown [id number] 2.16. 840.1.174138.3.579.2. 1977 Unknown [id number] 2.16. 840.1.371214.3.579.2. 1977 Unknown [id number] 2.16. 840.1.356791.3.579.2. 1977 Unknown [id number] 2.16.8 40.1.122060.3.579.2. 1977 Unknown [id number] 2.16.8 40.1.316072.3.579.2. 1977 Unknown [id number] 2.16.8 40.1.460585.3.579.2 1977 Unknown [id number] 2.16.8 40.1.304845.3.579.2 1977 Unknown [id number] 2.16.8 40.1.688321.3.579.2 1977 Unknown [id number] 2.16.8 40.1.823640.3.579.2 1977 Unknown [id number] 2.16.8 40.1.520798.3.579.2. 1977 Unknown [id number] 2.16.8 40.1.415174.3.579.2. 1977 Unknown [id number] 2.16.8 40.1.403653.3.579.2 1977 Unknown [id number] 2.16.8 40.1.179651.3.579.2 1977 Unknown [id number] 2.16.8 40.1.165708.3.579.2 1975 Unknown [id number] 2.16.8 40.1.673223.3.579.2 1975 Unknown [id number] 2.16.8 40.1.342700.3.579.2.727 1977 Unknown [id number] 2.16.8 40.1.081790.3.579.2. 1977 Unknown [id number] 2.16.8 40.1.836418.3.579.2. 1977 Unknown [id number] 2.16.8 40.1.512675.3.579.2. 1977 Unknown [id number] 2.16.8 40.1.413897.3.579.2. 1977 Unknown [id number] 2.16.8 40.1.008076.3.579.2. 1977 Unknown [id number] 2.16.8 40.1.087732.3.579.2. 1977 Unknown [id number] 2.16.8 40.1.394494.3.579.2. 1977 Unknown [id number] 2.16.8 40.1.681245.3.579.2. 1977 Unknown [id number] 2.16. 840.1.477837.3.579.2. 1977 Unknown [id number] 2.16. 840.1.159111.3.579.2. 1977 Unknown [id number] 2.16. 840.1.003154.3.579.2. 1977 Unknown [id number] 2.16. 840.1.342903.3.579.2. 1977 Unknown [id number] 2.16. 840.1.324460.3.579.2. 1977 Unknown [id number] 2.16. 840.1.572837.3.579.2. 1977 Unknown [id number] 2.16.84 0.1.140150.3.579.2.9 1977 Unknown [id number] 2.16.84 0.1.065595.3.579.2.1259 1977 Unknown [id number] 2.16.84 0.1.496521.3.579.2.1259 1957 Medicaid [id number] 2. 16.840.1.547664.19 1957 Medicare [id number] 2.1 6.840.1.281170.19 Unknown Unknown [id number] 2.16.8 40.1.603236.3.579.2.531 Unknown [id number] 2.16.8 40.1.209011.3.579.2.531 Unknown [id number] 2.16.8 40.1.233262.3.579.2.531 Unknown [id number] 2.16.8 40.1.512170.3.579.2.531 Unknown [id number] 2.16.8 40.1.758123.3.579.2.531 Unknown [id number] 2.16.8 40.1.624768.3.579.2.531 Unknown [id number] 2.16.8 40.1.916883.3.579.2.531 Unknown [id number] 2.16.8 40.1.423952.3.579.2.531 Unknown [id number] 2.16.8 40.1.690312.3.579.2.531 Social History Date Type Detail Facility Tobacco smoking status ILIS Unknown if ever smoked [facility] Start: 1975 Sex Assigned At Not on file [facility] Start: 05-17-2023 End: 01-24-2024 Sex Assigned At [employer] Other Start: 11-19-2019 End: 05-17-2023 Tobacco smoking status ILIS Ex-smoker (finding) [facility] Start: 1975 Sex Assigned At Female [facility] Start: 06-21-2022 End: 06-21-2022 Tobacco smoking status ILIS Never smoked tobacco (finding) [facility] Start: 05-17-2023 End: 01-24-2024 Current smoker Current smoker -[facility] [address] DO Work Phone: Comment on above: gilson; quit 01/28/22; Tobacco smoking status NHIS Tobacco smoking consumption unknown [facility] Start: 12-20-2022 End: 09-20-2023 History of tobacco use Current smoker [facility] End: 07-30-2011 History of tobacco use Cigarette Smoker [facility] Start: 09-02-2022 End: 01-24-2024 Tobacco use and exposure Smokeless tobacco non-user [facility] Start: 05-17-2023 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 Start: 02-20-2024 Alcoholic beverage intake Lifetime non-drinker (finding) [facility] Start: 01-24-2024 Tobacco Comment Pt smoked 1/2 ppd since age 17 years old. [facility] NEGATED: Highlighted row [facility] Goals Date Patient Goal Desired Activity /State Clinical Notes 11-12-2021 to 03-07-2024 Betty Lawrence NP - 03/07/2024 11:15 AM EDAnna Ch MA - 03/07/2024 11:00 AM Aneudy Dove MD - 02/28/2024 9:50 AM EDT Note Date & Type Note Facility 03-07-2024 History of Presen t illness Narrative Oral prednisone to start tomorrow. Patient has had bursa site injections when she was a patient of Dr. Billings. If the IM steroid and oral steroid does not help will schedule with Dr. Sanderson if he is agreeable. documented in this encounter [facility] 03-07-2024 History of Presen t illness Narrative Subjective Patient ID: Lupe Pickard (: 1975) is a 48 y.o. female who presents for No chief complaint on file.. HPI Pt presents for right hip bursitis, nurse visit only. History of Present Illness Current Outpatient Medications Medication Instructions B Toykynt-Zpiuae-OX (Super Quints B-50) tablet Oral Calcium Carb-Cholecalciferol (CALCIUM 600 + D PO) Oral cholecalciferol (Vitamin D-3) 50 MCG (1999) capsule 1 capsule, Oral, Daily RT COLLAGEN PO Oral diclofenac (Voltaren) 50 MG EC tablet 1 tablet, Oral, 2 times daily, Do not crush, chew, or split. dilTIAZem XR (DILACOR XR) 240 mg, Oral, Daily escitalopram (Lexapro) 10 MG tablet 1 tablet, Oral, Every morning ferrous sulfate 325 mg, Oral, Daily with breakfast fluocinonide (Lidex) 0.05 % external solution 1 application , Topical, Daily ketoconazole (NIZOral) 2 % shampoo 1 application , Topical, 2 times weekly levothyroxine (SYNTHROID, LEVOXYL) 112 mcg, Oral, Daily before breakfast liothyronine (CYTOMEL) 5 mcg, Oral, Daily lubiprostone (AMITIZA) 24 mcg, Oral, Daily PRN magnesium oxide (MAG-OX) 400 mg, Oral, 2 times daily melatonin 10 MG tablet Oral metFORMIN (Glucophage) 500 MG tablet 1 tablet, Oral, 2 times daily with meals metroNIDAZOLE (Metrogel) 1 % gel Topical Multiple Vitamin (Multi Vitamin Daily) tablet Oral Probiotic Product (PRO-BIOTIC BLEND PO) Oral propranolol (INDERAL) 20 mg, Oral, 2 times daily saccharomyces boulardii (FLORASTOR) 250 mg, Oral, Daily in the morning Semaglutide,0.25 or 0.5MG/DOS, (Ozempic, 0.25 or 0.5 MG/DOSE,) 2 MG/3ML solution pen-injector Inject 0.25 mg under the skin 1 (one) time per week for 28 days, THEN 0.5 mg 1 (one) time per week for 14 days. temazepam (Restoril) 30 MG capsule 1 capsule, Oral, Nightly PRN Turmeric (QC TUMERIC COMPLEX PO) Oral Wegovy 0.25 mg, Subcutaneous, Weekly No Known Allergies Patient Active Problem List Diagnosis Vitamin D deficiency Acquired hypothyroidism ([facility]/HCC) Irritable bowel syndrome with constipation Urinary retention Mixed stress and urge urinary incontinence Fibromyalgia Primary osteoarthritis involving multiple joints SANDRA (generalized anxiety disorder) ([facility]/HCC) Moderate major depression ([facility]/HCC) Essential hypertension ([facility]) History of anemia Chronic bilateral thoracic back pain Nonscarring hair loss, unspecified Acquired absence of uterus with remaining cervical stump Review of Systems Objective Vital signs: BP 138/88 Pulse 91 Wt 268 lb SpO2 98% BMI 41.97 kg/m Recent Results (from the past 2016 hour(s)) CBC auto differential Collection Time: 02/01/24 10:15 AM Result Value Ref Range WBC 9.2 3.8 - 11.6 10*3/uL UNCORRECTED WHITE BLOOD COUNT 9.2 3.8 - 11.6 10*3/uL RBC 4.34 3.60 - 5.00 HEMOGLOBIN 13.3 11.8 - 15.4 g/dL HEMATOCRIT 39.2 34.0 - 46.4 % MCV 90.1 80 - 100 fL MCH 30.7 24.7 - 34.3 pg MCHC 34.0 32.0 - 35.0 g/dL RED CELL DISTRIBUTION WIDTH, RDW 14.6 11.9 - 15.3 % PLATELET COUNT 288 150 - 450 10*3/uL MEAN PLATELET VOLUME, MPV 8.7 6.3 - 10.7 fL NEUTROPHILS, % 65.3 . % LYMPHOCYTES, % 28.1 . % MONOCYTE/MACROPHAGE, % 4.8 . % EOSINOPHILS, % 1.3 . % BASOPHILS, % 0.5 . % NRBC 0.1 0 - 0.5 /100[WBC] NEUTROPHILS 6.0 1.8 - 7.7 10*3/uL LYMPHOCYTES 2.6 1.00 - 4.8 10*3/uL MONOCYTES 0.4 0.0 - 0.8 10*3/uL EOSINOPHILS 0.1 0.0 - 0.45 10*3/uL BASOPHILS 0.0 0.0 - 0.2 10*3/uL Urinalysis, manual only Collection Time: 02/01/24 10:15 AM Result Value Ref Range COLOR,URINE Light-Yellow Yellow APPEARANCE,URINE Clear Clear SPECIFICY GRAVITY,URINE 1.016 1.001 - 1.030 PH,URINE 6.0 5.0 - 9.0 LEUKOCYTE ESTERASE,URINE Negative Negative NITRITE,URINE Negative Negative PROTEIN,URINE Negative Negative GLUCOSE,URINE (UA) Normal Normal KETONES,URINE Negative Negative UROBILINOGEN,URINE Normal Normal BILIRUBIN,URINE Negative Negative OCCULT BLOOD,URINE Negative Negative Comprehensive metabolic panel Collection Time: 02/01/24 10:15 AM Result Value Ref Range Glucose 108 (H) 70 - 100 mg/dL BUN 10 7 - 25 mg/dL CREATININE 0.50 (L) 0.60 - 1.20 mg/dL ESTIMATED GFR > 60.0 Sodium 138 136 - 145 mmol/L Potassium, Bld 4.3 3.5 - 5.1 mmol/L Chloride 104 98 - 107 mmol/L Carbon Dioxide 27.8 21.0 - 31.0 mmol/L Anion Gap 10.5 6.0 - 15.0 Calcium 8.5 (L) 8.6 - 10.3 mg/dL TOTAL PROTEIN 6.0 (L) 6.4 - 8.9 g/dL ALBUMIN LEVEL 3.8 3.5 - 5.7 g/dL GLOBULIN 2.2 g/dL ALBUMIN/GLOBULIN RATIO 1.7 BILIRUBIN,TOTAL 0.5 0.3 - 1.0 mg/dL ASPARTATE AMINO TRANSFERASE 11 (L) 13 - 39 U/L ALANINE AMINOTRANSFERASE 12 7 - 52 U/L ALKALINE PHOSPHATASE 52 34 - 104 U/L Iron and TIBC Collection Time: 02/01/24 10:15 AM Result Value Ref Range IRON 88 50 - 212 ug/dL TOTAL IRON BINDING CAPACITY 333 255 - 450 ug/dL % IRON SATURATION 26.4 20 - 50 % TRANSFERRIN 238 203 - 362 mg/dL Lipid panel Collection Time: 02/01/24 10:15 AM Result Value Ref Range CHOLESTEROL 163 140 - 200 mg/dL HDL CHOLESTEROL 40 23 - 92 mg/dL TRIGLYCERIDE W/REFLEX 176 (H) 0 - 149 mg/dL LDL CHOLESTEROL,CALCULATED 88 0 - 100 mg/dL VLDL CHOLESTEROL 35 mg/dL CHOL/HDL RATIO 4.1 <5.0 TSH Collection Time: 02/01/24 10:15 AM Result Value Ref Range THYROID STIMULATING HORMONE 1.71 0.45 - 5.33 u[iU]/mL Ferritin Collection Time: 02/01/24 10:15 AM Result Value Ref Range FERRITIN 52.8 11.0 - 306.8 ng/mL Microalbumin / creatinine urine ratio Collection Time: 02/01/24 10:15 AM Result Value Ref Range MICROALBUMIN, URINE < 0.7 0.0 - 1.8 CREATININE, URINE (RANDOM) 74.00 mg/dL MICROALBUMIN/CREATININE RATIO Test not performed 0.0 - 30.0 Physical Exam Assessment/Plan Assessment & Plan Problem List Items Addressed This Visit None Health Maintenance Topic Date Due Colorectal Cancer Screening 08/21/2022 Medicare Annual Wellness (AWV) 12/31/2022 Cervical Cancer Screening 11/08/2023 Mammogram 12/30/2023 Influenza Vaccine (1) Never done Immunization History Administered Date(s) Administered DTP 05/13/1978, 04/18/1979, 08/01/1979 DTaP, Unspecified 10/11/1979 Hep B, adult 11/14/2000, 12/28/2000, 06/05/2001 IPV 1977, 05/13/1978, 08/01/1979, 10/11/1979 MMR 01/07/1983, 11/21/2000 -Patient's chronic conditions have been reviewed in preparation for this appointment. Protocols reviewed and updated. A collaborative plan of care has been created for pt regarding specific health concerns. Any barriers to care have been identified and addressed. Any part of this document that has been added/copied from other documents has been reviewed for accuracy and updated as appropriate at the time of the patient encounter. -No follow-ups on file. documented in this encounter [facility] 02-28-2024 History of Presen t illness Narrative Lupe Pickard is a 48 y.o. female Kenyetta Dove MD presents with chief complaint of Thyroid Problem and Follow-up HPI: Interim History 02/2024: Follow-up visit 02/28/2024 TSH 4.01, free T3 of 3.2 (2.5-3.9), FT4 1.1 (0.61-1.12). on levothyroxine to 112 Cytomel 5 mcg am Interim History 01/2023: Follow-up visit 02/21/2023 tsh 0.24, free T3 of 3.89 (2.5-3.9), FT4 0.87 (0.61-1.12). on levothyroxine to 100 Cytomel 10 mcg am Interim History 07/2022: Followup visit 08/17/2022. Estradiol 310, LH 14, progesterone 0.2, FSH 5.1, free T4 of 0.8 (0.61-1.12), vitamin D 36, free T3 of 3.85 (2.5-3.9), TSH 0.31. Had mild palpitations, evaluated by cardiology with 30-day event monitor and found little bit of PVCs, started on metoprolol, feels a little bit better, so I will cut back her levothyroxine to 112 and keep Cytomel the same. Interim History: 10/2021 Follow-up office visit 11/26/2021 for hypothyroidism. TSH 0.01, free T4 1.05, free T3 3.67. We c/o her levothyroxine to 125 mcg and liothyronine to 5 mcg 2 tablets in am Interim History: 05/2021 Follow-up office visit 06/17/2021 for hypothyroidism. TSH 0.01, free T4 1, free T3 3.47. We cut her levothyroxine to 137 mcg and liothyronine to 5 mcg 2 tablets in am Interim History: 11/2020 Follow-up office visit 12/10/2020 for hypothyroidism. TSH 0.01, free T4 1.11, free T3 3.61. We cut her levothyroxine to 150 mcg and liothyronine to 5 mcg twice a day. Interim History: 08/2020 Follow-up office visit 09/23/2020 for hypothyroidism. She is on due to instability with her labs on the high side; TSH 0.01, free T4 1.61, free T3 5.02. We cut her levothyroxine to 150 mcg and liothyronine to 5 mcg twice a day. New labs in August/2020: TSH is still suppressed at 0.01, but free T4 is within normal limits 1.01 and free T3 3.53. She has had mixed symptoms of hair loss and fatigue. IM 06/19 follow up visit in 05/2020, no new lab, on levothyorixne 175 and cytmel 25 mcg daily HPI: 02/2020 New patient. Her family doctor is MD Paul. She came by herself. She is on multiple regimes since she had a thyroidectomy in July/2018, by Dr. Garcia. First of all she was on 137 mcg daily, then switched to Nature Thyroid then went to levothyroxine with Cytomel (liothyronine) and then in February/2020 labs TSH suppressed, free T4 normal, free T3 high. Currently she is on thyroid [employer] natural 60 mcg twice a day, cut back from 90 mcg twice a day and levothyroxine 50 mcg one-half tablet twice a day. SUBJECTIVE: MEDICATIONS: Current Outpatient Medications Medication Instructions B Cbqfmbp-Ownifk-BO (Super Quints B-50) tablet Oral Calcium Carb-Cholecalciferol (CALCIUM 600 + D PO) Oral cholecalciferol (Vitamin D-3) 50 MCG (1999) capsule 1 capsule, Oral, Daily RT COLLAGEN PO Oral diclofenac (Voltaren) 50 MG EC tablet 1 tablet, Oral, 2 times daily, Do not crush, chew, or split. dilTIAZem XR (DILACOR XR) 240 mg, Oral, Daily escitalopram (Lexapro) 10 MG tablet 1 tablet, Oral, Every morning ferrous sulfate 325 mg, Oral, Daily with breakfast fluocinonide (Lidex) 0.05 % external solution 1 application , Topical, Daily ketoconazole (NIZOral) 2 % shampoo 1 application , Topical, 2 times weekly levothyroxine (SYNTHROID, LEVOXYL) 112 mcg, Oral, Daily before breakfast liothyronine (CYTOMEL) 5 mcg, Oral, Daily lubiprostone (AMITIZA) 24 mcg, Oral, Daily PRN magnesium oxide (MAG-OX) 400 mg, Oral, 2 times daily melatonin 10 MG tablet Oral metFORMIN (Glucophage) 500 MG tablet 1 tablet, Oral, 2 times daily with meals metroNIDAZOLE (Metrogel) 1 % gel Topical Multiple Vitamin (Multi Vitamin Daily) tablet Oral Probiotic Product (PRO-BIOTIC BLEND PO) Oral propranolol (INDERAL) 20 mg, Oral, 2 times daily saccharomyces boulardii (FLORASTOR) 250 mg, Oral, Daily in the morning Semaglutide,0.25 or 0.5MG/DOS, (Ozempic, 0.25 or 0.5 MG/DOSE,) 2 MG/3ML solution pen-injector Inject 0.25 mg under the skin 1 (one) time per week for 28 days, THEN 0.5 mg 1 (one) time per week for 14 days. temazepam (Restoril) 30 MG capsule 1 capsule, Oral, Nightly PRN Turmeric (QC TUMERIC COMPLEX PO) Oral Wegovy 0.25 mg, Subcutaneous, Weekly ALLERGIES: No Known Allergies Past Medical History: Diagnosis Date Acquired absence of uterus with remaining cervical stump Anxiety Bladder disorder Chronic fatigue Chronic pain Depression (CMS/HCC) Disease of thyroid gland (CMS/HCC) Euthyroid sick syndrome Fibromyalgia SANDRA (generalized anxiety disorder) (CMS/HCC) Graves disease (CMS/HCC) History of hysterectomy Hypertension (CMS/HCC) Hypothyroidism (acquired) (CMS/HCC) Loss of hair Lyme disease Mixed stress and urge urinary incontinence Morbid obesity with BMI of 40.0-44.9, adult (CMS/HCC) Nonscarring hair loss, unspecified Postprocedural hypothyroidism (CMS/HCC) Urinary retention Past Surgical History: Procedure Laterality Date BREAST BIOPSY Left SECTION, LOW TRANSVERSE 1992, 1993, 2002, 2006 HYSTERECTOMY all except 1 ovary THYROIDECTOMY REVIEW OF SYMPTOMS: 14 POINT OF SYSTEM REVIEWED AND NEGATIVE OBJECTIVE: Visit Vitals BP 126/84 Pulse 78 Resp 18 Ht 5' 7 Wt 268 lb BMI 41.97 kg/m Smoking Status Every Day BSA 2.4 m Physical Exam Constitutional: Appearance: Normal appearance. She is normal weight. HENT: Head: Normocephalic and atraumatic. Right Ear: External ear normal. Nose: Nose normal. Mouth/Throat: Pharynx: Oropharynx is clear. Eyes: Extraocular Movements: Extraocular movements intact. Pupils: Pupils are equal, round, and reactive to light. Cardiovascular: Rate and Rhythm: Normal rate and regular rhythm. Pulmonary: Effort: Pulmonary effort is normal. Abdominal: General: Abdomen is flat. Palpations: Abdomen is soft. Musculoskeletal: General: Normal range of motion. Skin: General: Skin is warm. Neurological: General: No focal deficit present. Mental Status: She is alert. Psychiatric: Mood and Affect: Mood normal. Behavior: Behavior normal. ASSESSMENT AND PLAN: Assessment/Plan Diagnoses and all orders for this visit: Postoperative hypothyroidism (CMS/HCC) We will continue with levothyroxine 112 mcg daily, liothyronine 5 mcg once daily, we will check lab in 6 months and adjust Encounter for dietary consultation Vitamin D deficiency Class 3 severe obesity without serious comorbidity with body mass index (BMI) of 40.0 to 44.9 in adult, unspecified obesity type ([facility]) Diet exercise reviewed with the patient Follow up in about 1 year (around 02/27/2025). documented in this encounter [facility] 07-08-2023 Evaluation note Encounter Date Diagnosis Assessment Notes Jun, Cough (ICD-10 - R05.9) Jun, COVID (ICD-10 - U07.1) Rest. Drink plenty of fluids. Take jgbd-kej-wtjar er Tylenol or Motrin as needed for fever or discomfort. May continue to take mucj-qge-bgljn er cold and flu medicine for symptom management of your COVID as needed, but you will need to follow the instructions on the box. May take lvoy-muh-utxhq er Delsym or Robitussin for cough. Take [...] to rest, drink plenty of fluids, take fngy-ayz-nkijf er Tylenol or Motrin as needed for fever or discomfort and may take sjff-uhg-dmqey er cold and flu medicine for symptom management of with COVID. Patient was told she can take prvk-ywt-mjuzz er cough medicine for her cough. She is to follow-up with her primary care provider if symptoms persist or go to the ER if symptoms worsen including chest pain shortness of breath difficulty breathing pain with deep breathing. Patient is agreeable to treatment plan. Jun, Sore throat (ICD-10 - J02.9) Jun, Acute streptococcal pharyngitis (ICD-10 - J02.0) [employer] Other 02-09-2024 Miscellaneous Notes* Telephone Encounter - Stephie Brambila MD - 07/08/2023 11:04 AM EST Called patient patient to discuss lab results. MARCIO panel, dsDNA, C3, C4 were normal. No major abnormalities with other labs. At this time, no signs of rheumatologic autoimmune disease. Discussed Dermatology evaluation for rash and hair loss. Stephie Brambila MD [facility] NoteHNO ID: [id number] Author: STEPHIE BRAMBILA MD Service: ? Author Type: Physician Type: Progress Notes Filed: 06/26/2023 14:11 Note Text: Rheumatology Clinic Date of Service: 05/24/2023 Patient: Lupe Pickard Medical Record: [id number] Last Rheumatology visit: 05/24/2023 (with Stephie Brambila) [...] uses heat/ice, massage which helps. She takes [place] 5mg that does not do much for [...] 10 years. 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 Family History: No known FH of autoimmune [...] by mouth. CALCIUM CARBONATE (more content not included)...[facility] 05-17-2023 NoteHNO ID: [id number] Author: Stephie Brambila MD Service: ? Author Type: Physician Type: Progress Notes Filed: 05/17/2023 2:50 PM Note Text: Rheumatology Clinic Date of Service: 05/17/2023 Patient: Lupe Pickard Medical Record: [id number] Last Rheumatology visit: None at [facility] History of Present Illness Lupe Pickard is [...] uses heat/ice, massage which helps. She takes [place] 5mg that does not do much for [...] 10 years. 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 Family History: No known FH of autoimmune [...] by mouth. CALCIUM CARBONATE/VITAMIN (more content not included)...[facility]11-08-2023 NotePROCEDURE: 30 DAY EVENT MONITOR REFERRING [...] BY: Owen Schmidt M.D. lr Dictated: 04/06/2023 [id number] Transcribed: 04/06/2023 cc:JOSH Akins-[facility] SouthComment on above:Result Comment: Electronically Signed By: Brayan PELAYO, Owen Brown\.br\Date and Time Signed: 04/06/23 20:52 [id number] [facility]* Encounter Date Diagnosis Assessment Notes Treatment Notes Treatment Clinical Notes Feb, Rash and nonspecific skin eruption (ICD-10 - R21) Likely rash is related to monitor adhesive, although iron cannot be fully excluded. Stop iron. Consult prescribing physician tomorrow about iron supplementation and follow thhe plan of care. Continue with heart monitor and call [employer] office tomorrow morning for guidance as she [...] Pt understood and agreed to treatment plan. [employer] Other 09-21-2023 Evaluation note* Encounter Date [...] Jan, Blood in stool (ICD-10 - K92.1) [employer] Other 08-30-2023 NoteChief Complaint referral to [facility] for anxiety HPI Staff Patient will be establishing with Dr. Singh in February. Patient would like to have a referral to [facility] in [place] for her Anxiety. PHQ -9 score 6 [...] PCP as scheduled in February 2023 Ordered: [facility] External Ambulatory Referral 2. Screen for colon cancer (Z12.11: Encounter for screening for malignant neoplasm of colon) Ordered: [facility] External Ambulatory Referral Orders: [facility] External Ambulatory Referral Follow-up No qualifying data [...] 2000 intl units or (more content not included)...[facility] Center[facility]:Result Comment: Electronically Signed By: TAVO HARRIS CNP\riley\Date and Time Signed: 01/26/23 14:46 [id number] History of Present illness Narrative* Javad Leach [...] Risk protocol implemented: No documented in this [id number] Evaluation note* Encounter Date Diagnosis Assessment Notes Treatment Notes Treatment Clinical Notes Aug, Irritable bowel syndrome with constipation (ICD-10 - K58.1) Start Amitiza 24mcg twice daily. Start Miralax in addition to Amitiza. Titrate dose as needed. Referral to [facility] for rectal manometry [employer] Other 03-01-2023 History of Present illness [...] months or earlier if the need arise -[facility] Lyssa-Riley Del Angel DO Work Phone: 1(589) 644-347402-16-2023 NoteCONSULTATION CONSULTATION DATE: 07/15/2022 HISTORY OF PRESENT ILLNESS: This is a 47-year-old female who returns to the clinic for a three month follow up for her chronic mid back pain and lower back pain. She was last seen on 04/15/2022 and, at that time, she received a referral to Dr. Bradley Leach at [facility]. She was having increased thoracic pain with [...] Bradley Leach at his new location at [facility] in [place]. Refills for baclofen and tramadol at the set dose and frequency will be sent to her pharmacy. We will furnish a letter to her PCP, at the patient's request, to take over her tramadol prescription. She will be followed up in the office post procedure.[facility] [id number] Note CONSULTATION PROCEDURE DATE: 07/29/2022 PREOPERATIVE DIAGNOSIS: [...] will be followed up in the office.[facility] [id number] Evaluation note* Encounter Date Diagnosis Assessment Notes Treatment Notes Treatment Clinical Notes Apr, Irritable bowel syndrome with constipation (ICD-10 - K58.1) Stop Amitiza Start Trualcne 3mg daily Follow up in 3-4 months [employer] Other 11-30-2022 Evaluation note* Encounter Date [...] (ICD-10 - J02.9) strep neg, see above. [employer] Other 11-17-2022 NoteCONSULTATION CONSULTATION DATE: 04/15/2022 [...] send a referral to spine surgeon in [place], Dr. Bradley Leach. Patient is in agreement to this, and we will follow her up at our clinic in three months' time.[facility] [id number] NoteCONSULTATION CONSULTATION DATE: 01/06/2022 This is a [...] to initial consultation and prefers this at [facility] in [place]. We will see the patient in three months' time unless otherwise indicated.[facility] [id number] NoteCONSULTATION PROCEDURE DATE: 01/06/2022 PRE AND POSTOPERATIVE [...] will be followed up in the office.[facility] 11-12-2021 NoteCONSULTATION CONSULTATION DATE: 11/12/2021 HISTORY [...] Patient agrees with the plan of care. [facility] Signed and Approved by: TANGELA MARR . 11/25/2021 16:24:00[facility] information [facility] Work Phone: Evaluation noteNo InformationNort Therac[employer] Other Evaluation note* Diagnosis Cervical spondylosis with [...] Onset Date Resolution Status Abdominal pain acute [facility] Work Phone: Evaluation note* Diagnosis Onset Date Resolution Status Rotator cuff syndrome of right shoulder acute [facility] Work Phone: Evaluation note* Diagnosis Onset Date Resolution Status Rotator cuff syndrome of right shoulder acute Sinusitis, acute maxillary n oneactive Bronchitis noneactive [facility] Work Phone: Evaluation note* Diagnosis Onset Date Resolution Status Sinusitis, acute maxillary n oneactive Bronchitis noneactive [facility] Work Phone: Evaluation note* Diagnosis Postoperative hypothyroidism (CMS/HCC)- Primary Postsurgical hypothyroidism Encounter for dietary consultation Vitamin D deficiency Class 3 severe obesity without serious comorbidity with body mass index (BMI) of 40.0 to 44.9 in adult, unspecified obesity type (CMS/HCC) documented [facility] encounter [facility] Diagnosis Bursitis of other bursa of right hip- Primary [facility] this encounter [facility] Diagnosis Bursitis of other bursa of right hip documented in this encounter [facility] general Narrative - Reported* Type Description Date Medical History Fibromyalgia Medical History arthritis in knees Medical History bursitis in hips Medical History Arthritis in lower back Medical History IBS Medical History depression Medical History anxiety Medical History Graves disease Medical History S/P Thyroidectomy Surgical History x 4 Surgical History hysterectomy Surgical History Thyroidectomy 06/2018 Hospitalization History childbirth Hospitalization History see surgery [employer] Other Hiswgnl general Narrative - Reported* Type Description Date [...] Hospitalization History childbirth Hospitalization History see surgery [employer] Other History of Present illness Narrative* [...] months or earlier if the need arise [facility] DO Work Phone: History [...] months or earlier if the need arise [facility] Work Phone: Hospital Discharge instructions Additional Instructions Follow up with your primary care doctor Continue to take your tramadol as needed for pain Return to the ED if you develop worsening [facility] Discharge instructions Additional [...] your primary care doctor and with your [employer] as planned.[facility] Work Phone: Hospital Discharge instructions Additional Instructions You can take Naprosyn and Tylenol as needed for your eye pain. Follow-up for your stress test and continue to take your antihypertensive medication as prescribed. Follow-up with your PCP for ongoing treatment of your high blood pressure. Follow-up with the eye doctor listed below regarding your left eye pain.[facility] Work Phone: Hospital Discharge instructions Additional [...] me in 6-8 weeks. Low FODMAP diet Yext 1 p.o. every morning -Notify the doctor if you have any problems. -Office number [phone] Work Phone: Chief Complaint and Reason [...] of right shoulder Sinusitis, acute maxillary Bronchitis Chief Complaint cough, congestion Screening Reason for Visit Sinusitis, acute max illary Bronchitis Chief Complaint cough, congestion Screening I10 Reason for Visit Sinusitis, acute max illary Bronchitis Chief Complaint cough, congestion Screening I10 e89.0 Reason for Visit Sinusitis, acute max illary Bronchitis Advance Directives Advance Directive Response Recorded Date/ Time Advance [...] CT T-SPINE W/O CONTRAST Javad Leach MD [address] [place] [address] SCAN Referral ID Status Reason Start Date Expiration Date V isits Requested Visits Authorized [id number] Authorized 09/06/2022 09/06/2023 1 1 Specialty Diagnoses / Procedures Referred By Yared madera Referred To Contact Radiology Diagnoses Cervical spondylosis with myelopathy Procedures DOWNLOAD POWERSHARE IMAGES TO EPIC Javad Leach MD [address] [place] [address] [facility] [address] [place] [address] Referral ID Status Reason Start Date Expiration Date V isits Requested Visits Authorized [id number] Authorized 08/24/2022 08/24/2023 1 1 Summary Purpose Additional Source Comments Source Comments (unrecognize d section and content) In the event this informatio n is protected by the Federal Confidentiality of Alcohol and Drug Abuse Patient Records regulations: The Federal rules restrict any use of the information to criminally investigate or prosecute any alcohol or drug abuse patient.[facility] the event this information is protected by the Federal Confidentiality of Alcohol and Drug Abuse Patient Records regulations: The Federal rules restrict any use of the information to criminally investigate or prosecute any alcohol or drug abuse patient.[facility] REASON FOR VISIT (unrecogniz ed section and content) Reason Comments New patient, to establish relationship B ack pain Specialty Diagnoses / Procedures Referred By Contac t Referred To Contact Neurosurgery Diagnoses Protrusion of thoracic intervertebral disc Thoracic radiculitis [address] [place] [address] [facility] NEUROSURGERY [address] [place] [address] Referral ID Status Reason Start Date Expiration Date V isits Requested Visits Authorized [id number] Authorized 07/22/2022 07/22/2023 3 3 Specialty Diagnoses / Procedures Referred By Contac t Referred To Contact Radiology Diagnoses Thoracic spine pain Procedures CT NEURO IMAGE IMPORT(KYLE) DOWNLOAD POWERSHARE IMAGES TO Javad Leach MD [address] [place] [id number] [facility] DIAGNOSTIC RADIOLOGY [address] [facility] [place] [address] Referral ID Status Reason Start Date Expiration Date Visits Re quested Visits Authorized [id number] Closed 09/30/2022 09/30/2023 1 1 Reason Comments Thyroid Problem Follow-up Reason Comments Bursitis Care Teams (unrecognized sec tion and content) Team Status: Inactive Member Role Status Dates Donya Billings , DO Primary Care Provider Active COLTON TysonC Attending Provider Active Team Status: Active Member [...] , DO Primary Care Provider Active Yogi Michaels , DO Emergency Provider Active Team Status: Inactive Member Role Status Dates PHYSICIAN NO FAMILY Primary Care Provider Active Josué Napier PA-C Emergency Provider Active Team Status: Active Member Role Status Dates Melissa Singh II, DO Primary Care Provider Active Team Status: Inactive Member Role Status Dates Melissa Singh II, DO Primary Care Provider Active Mariya Kumari , DO Emergency Provider Active Team Status: Inactive Member Role Status Dates Melissa Singh II, DO Primary Care Provider Active Franklyn Madera MD Attending Provider Active Phillip Benjamin MD Other Provider Active Team Status: Inactive Member Role Status Dates Melissa Singh II, DO Primary Care Provider Active Yogi Michaels , DO Emergency Provider Active Team Status: Inactive Member Role Status Dates Melissa Singh II, DO Primary Care Provider Active Kenyetta Dove MD Attending Provider Active Team Status: Inactive Member Role Status Dates Melissa Singh II, DO Primary Care Provider, Other P rovider Active Radha Mcintosh , APPLICATION DESIGN ENGINEER-C Attending Provider Active Team Status: Inactive Member Role Status Dates Melissa Singh II, DO Primary Care Provider Active Beny Alvarez MD Attending Provider Active Becky Aguirre APRN APPLICATION DESIGN ENGINEER-C Other Provider Act cecelia Rn Hedis Relationship Specialty Start Date End Date Donya Billings, Referring Family Medicine 11/22/22 Team Status: Inactive Member Role Status Dates Melissa Singh II, DO Primary Care Provider Active Start: July 22, 2023 End: July 22, 2023 Jacqui Samayoa , DO Emergency Provider Active St art: July 22, 2023 End: July 22, 2023 Team Status: Inactive Member Role Status Dates Melissa Singh II, DO Primary Care Pro vider, Attending Provider Active Start: July 28, 2023 End: July 28, 2023 Team Status: Inactive Member Role Status Dates Melissa Singh II, DO Primary Care Provider Active Start: August 16, 2023 End: August 16, 2023 Brielle Dominguez NP-C Attending Provider Active St art: August 16, 2023 End: August 16, 2023 Team Status: Inactive Member Role Status Dates Melissa Singh II, DO Primary Care Provider Active Start: September 20, 2023 End: September 20, 2023 Javad Lozoya APRN Emergency Provider Active Start: September 20, 2023 End: September 20, 2023 Team Status: Inactive Member Role Status Dates Melissa Singh II, DO Primary Care Provider Active Start: October 03, 2023 End: October 03, 2023 Chaz Carrillo , DO Attending Provider Active St art: October 03, 2023 End: October 03, 2023 Team Status: Inactive Member Role Status Dates Melissa Singh II, DO Primary Care Provider Active Start: December 05, 2023 End: December 05, 2023 Selina Lomas APRN Attending Provider Active Sta rt: December 05, 2023 End: December 05, 2023 Team Status: Inactive Member Role Status Dates Melissa Singh II, DO Primary Care Provider Active Start: January 20, 2024 End: January 20, 2024 Referral Self Attending Provider Active Start: Brent tyson2023 End: January 20, 2024 Team Status: Active Member Role Status Dates Melissa Coon MD Primary Care Provider Active Team Status: Inactive Member Role Status Pina Coon MD Primary Care Provider Active St art: February 01, 2024 End: February 01, 2024 Dalia Mar NP-C Attending Provider Active S tart: February 01, 2024 End: February 01, 2024 Team Status: Inactive Member Role Status Dates Melissa Coon MD Primary Care Provider Active St art: February 21, 2024 End: February 21, 2024 Kenyetta Dove MD Attending Provider Active Sta rt: February 21, 2024 End: February 21, 2024 Rn Hedis Relationship Specialty Start Date End Date Melissa Coon MD [address] [place] [address] PCP - General Internal Medicine 01/24/24 Rn Hedis Relationship Specialty Start Date End Date Melissa Coon MD [address] [place] [address] PCP - General Internal Medicine 01/24/24 Rn Hedis Relationship Specialty Start Date End Date Melissa Coon MD [address] [place] [address] PCP - General Internal Medicine 01/24/24 Rn Hedis Relationship Specialty Start Date End Date Melissa Coon MD [address] [place] [address] PCP - General Internal Medicine 01/24/24 Goals (unrecognized section and content) Goals may be documented in a n alternate section INFORMATION SOURCE (unrecogn ized section and content) DATE CREATED AUTHOR 10/04/2022 [facility] DATE CREATED AUTHOR AUTHOR'S ORGANIZ ATION 10/11/2022 [facility] DATE CREATED AUTHOR AUTHOR'S ORGANIZ ATION 11/27/2022 [facility] DATE CREATED AUTHOR AUTHOR'S ORGANIZ ATION 12/09/2022 [facility] DATE CREATED AUTHOR AUTHOR'S ORGANIZ ATION 12/09/2022 [employer] DATE CREATED AUTHOR AUTHOR'S ORGANIZ ATION 07/10/2023 [facility] DATE CREATED AUTHOR AUTHOR'S ORGANIZ ATION 01/12/2024 [facility] DATE CREATED AUTHOR AUTHOR'S ORGANIZ ATION 02/19/2024 [facility] DATE CREATED AUTHOR AUTHOR'S ORGANIZ ATION 03/03/2024 [facility] DATE CREATED AUTHOR AUTHOR'S ORGANIZ ATION 03/09/2024 [facility] Special[facility] FOR RECORDS PERTAINING TO PATIENTS WHO ARE [...] BE BASED ON THE PRIMARY CLINICAL RECORDS. [facility] [employer] provides no warranty or guarantee of the accuracy or completeness of information in this document.
--- NOTE | 2024-03-21 10:38 | P.CN_ITS ---
Consult Note: HPI Data of Consult Patient: known to practice within the last 3 years Requesting Physician: Brielle Dominguez NP Primary Care Provider: Non-Staff Physician, MD Consult Narrative Reason for consult: f/u Narrative: Lupe Pickard a pleasant 47 year old female presents for evaluation and management of mid back pain and low back pain, today rating pain 4/10 aching pressure. Patient finding benefit to marijuana at this time. now reporting bilateral T9-10 TFESI provided 50% improvement for 2 months before returning to baseline. patient has a longstanding hx of middle and low back pain unresponsive to PT greater than 6 weeks, heat/ice, tylenol. she cannot take NSAIDs as they cause swelling. has failed numerous muscle relaxers including robaxin, baclofen, zanaflex. She recently underwent bilateral L3-4 L4-5 RFA with >80% improvement at those levels, she continues to have moderate to severe pain above and below. She is interested in proceeding with a spinal cord stimulator trial for chronic back pain, lumbar spondylosis, thoracic stenosis and is awaiting psychiatric evaluation. she would like to discuss right GTB pain. cc:: CC: Brielle Dominguez NP Review of Systems ROS Status of ROS 10 or more systems reviewed and unremark able except as noted in history and below Musculoskeletal Reports: back pain and extremity pain PFSH PFSH Medical History Osteoarthritis ?M19.90 - Unspecified osteoarthritis, unspecified site (ICD-10) Fibromyalgia ?M79.7 - Fibromyalgia (ICD-10) IBS (irritable bowel syndrome) ?K58.9 - Irritable bowel syndrome without diarrhea (ICD-10) Constipation ?K59.00 - Constipation, unspecified (ICD-10) Surgical History History of hysterectomy ?Z90.710 - Acquired absence of both cervix and uterus (ICD-10) History of thyroidectomy ?E89.0 - Postprocedural hypothyroidism (ICD-10) Meds Home Medications and Allergies Home Medications ?Medication ?Instructions ?Recorded ?Confirmed ?Type cholecalciferol (vitamin D3) 50 50 mcg PO DAILY 12/30/22 02/13/24 History mcg (2,000 unit) capsule (Vitamin D3) levothyroxine 112 mcg tablet 112 mcg PO DAILY 12/30/22 02/13/24 History liothyronine 5 mcg tablet 10 mcg PO DAILY 12/30/22 02/13/24 History lubiprostone 24 mcg capsule 24 mcg PO DAILY 12/30/22 02/13/24 History magnesium oxide 400 mg (241.3 mg 400 mg PO DAILY 12/30/22 02/13/24 History magnesium) tablet melatonin 10 mg tablet 10 mg PO DAILY 12/30/22 02/13/24 History multivitamin (Daily Multi-Vitamin 1 tab PO DAILY 12/30/22 02/13/24 History tablet) diltiazem HCl 180 mg 240 mg PO Q24H 02/01/23 02/13/24 History capsule,extended release 24 hr Lactobacillus acidophilus 10 100 mmu cells PO DAILY 08/03/23 02/13/24 History billion cell capsule (Probiotic) escitalopram oxalate 20 mg tablet 20 mg PO DAILY 08/03/23 02/13/24 History (Lexapro) ferrous sulfate 325 mg (65 mg 325 mg PO DAILY 08/03/23 02/13/24 History iron) tablet (Feosol) propranolol 20 mg tablet 20 mg PO BID 08/03/23 02/13/24 History turmeric 400 mg capsule mg PO 08/03/23 History Allergies Allergy/AdvReac Type Severity Reaction Status Date / Time No Known Drug Allergies Allergy Verified 02/13/24 09:09 Exam Constitutional Documenting provider has reviewed patient's vital signs: yes Common normals: no apparent distress, oriented x3, healthy appearing, alert and well nourished General appearance: cooperative Nutritional appearance: overweight HENMT Common normals: normocephalic, hearing grossly normal bilaterally and moist oral mucous membranes Head and scalp: normocephalic Eye Common normals: PERRL Pupil: PERRL Neck & C-Spine Common normals: full ROM General: normal visual inspection Chest Common normals: inspection of chest normal Respiratory Common normals: normal respiratory effort, no retractions and no use of accessory muscles Back & Pelvis Thoracic spine/upper back: ROM limited, pain with ROM and paraspinal muscle tenderness Lumbar spine/lower back: ROM limited, pain with ROM, paraspinal muscle tenderness and straight leg raise negative bilaterally Sacroiliac joints: SI joint(s) abnormal Other: no radiculopathy noted on exam no identifiable trigger points bilateral L3-S1 facet loading positive bilateral SIJ positive carlos(patricks), gaenslens, thigh thrust, compression test right GTB tender upon palpation Extremity Common normals: normal to inspection and full ROM Neuro Common normals: oriented x3, CN's II-XII intact bilaterally, moves all extremities, no focal motor deficits, no sensory deficits noted and deep tendon reflexes 2+ bilaterally Sensorium/orientation: alert Motor exam: strength 5/5 throughout and no movement abnormalities noted Psych Common normals: mental status grossly normal, thought process normal, cooperative, affect normal, speech normal and activity/motor behavior normal Speech: normal speech Thought process: normal thought process Assessment and Plan Assessment and Plan (1) Greater trochanteric bursitis of right hip: (2) Lumbar spondylosis: (3) Thoracic stenosis: (4) Chronic bilateral low back pain: (5) Sacroiliac joint dysfunction: Plan right GTB injection with Dr Jensen consider bilateral SIJ injection continue f/u with psychiatry, pending SCS trial for chronic back pain, lumbar spondylosis, thoracic stenosis/spondylosis
== END 2024-03-21 10:13 | disposition home or self-care (01) ==
LOC: PM 10:12
PROVIDERS: Visit Provider Nurse Practitioner
DX: M70.61 Trochanteric bursitis, right hip (principal); M47.816 Spondylosis without myelopathy or radiculopathy, lumbar region; M48.04 Spinal stenosis, thoracic region; M54.50 Low back pain, unspecified; M53.3 Sacrococcygeal disorders, not elsewhere classified
CPT/HCPCS: G0463

== ENCOUNTER 2024-03-26 11:51 | Outpatient (OUT) | payer MEDICARE, MEDICAID, SELFPAY ==
--- NOTE | 2024-03-26 12:46 | P.CN_ITS ---
Consult Note: HPI Data of Consult Patient: known to practice within the last 3 years Consult date: 03/26/24 Requesting Physician: Willian Jensen MD Primary Care Provider: Non-Staff Physician, Consult Narrative Reason for consult: low back, right hip pain Narrative: 48yof who presents for assessment. worsening right hip and low back pain. would like to proceed with previously discussed right GTB injection. also very tender over bilateral PSIS. imaging shows bilateral sij degeneration. has continued in a series of provider directed home exercises >6 weeks, without lasting benefit. denies adverse med side effects. cc:: CC: Willian Jensen MD Review of Systems ROS Status of ROS 10 or more systems reviewed and unremark able except as noted in history and below [facility] History Osteoarthritis ?M19.90 - Unspecified osteoarthritis, unspecified site (ICD-10) Fibromyalgia ?M79.7 - Fibromyalgia (ICD-10) IBS (irritable bowel syndrome) ?K58.9 - Irritable bowel syndrome without diarrhea (ICD-10) Constipation ?K59.00 - Constipation, unspecified (ICD-10) Surgical History History of hysterectomy ?Z90.710 - Acquired absence of both cervix and uterus (ICD-10) History of thyroidectomy ?E89.0 - Postprocedural hypothyroidism (ICD-10) Meds Home Medications and Allergies Home Medications ?Medication ?Instructions ?Recorded ?Confirmed ?Type cholecalciferol (vitamin D3) 50 50 mcg PO DAILY 12/30/22 02/13/24 History mcg (2,000 unit) capsule (Vitamin D3) levothyroxine 112 mcg tablet 112 mcg PO DAILY 12/30/22 02/13/24 History liothyronine 5 mcg tablet 10 mcg PO DAILY 12/30/22 02/13/24 History lubiprostone 24 mcg capsule 24 mcg PO DAILY 12/30/22 02/13/24 History magnesium oxide 400 mg (241.3 mg 400 mg PO DAILY 12/30/22 02/13/24 History magnesium) tablet melatonin 10 mg tablet 10 mg PO DAILY 12/30/22 02/13/24 History multivitamin (Daily Multi-Vitamin 1 tab PO DAILY 12/30/22 02/13/24 History tablet) diltiazem HCl 180 mg 240 mg PO Q24H 02/01/23 02/13/24 History capsule,extended release 24 hr Lactobacillus acidophilus 10 100 mmu cells PO DAILY 08/03/23 02/13/24 History billion cell capsule (Probiotic) escitalopram oxalate 20 mg tablet 20 mg PO DAILY 08/03/23 02/13/24 History (Lexapro) ferrous sulfate 325 mg (65 mg 325 mg PO DAILY 08/03/23 02/13/24 History iron) tablet (Feosol) propranolol 20 mg tablet 20 mg PO BID 08/03/23 02/13/24 History turmeric 400 mg capsule mg PO 08/03/23 History Allergies Allergy/AdvReac Type Severity Reaction Status Date / Time No Known Drug Allergies Allergy Verified 02/13/24 09:09 Exam Narrative Exam Narrative: Psych-alert and oriented x 3.? Attentive and appropriate, constitutionally normal, displays normal mood and affect per situation.? There are no obvious deficits in memory, reasoning, or intellect.? Skin-no obvious rashes, bruising, erythema noted to the patient's area of pain. Extremities- extremities are warm with minimal edema and palpable pulses. Hip-tenderness to palpation is noted over the right hip joint.? Pain is elicited with internal and external rotation of the hip.? Hip provocative maneuvers are positive and consistent with the patient's normal pain.? Sacroiliac - tender over bilateral PSIS. Positive Jorge's bilaterally. Positive thigh thrust bilaterally. Coordination remains intact.? Gait remains antalgic. Assessment and Plan Assessment and Plan (1) Sacroiliac joint dysfunction: (2) Greater trochanteric bursitis of right hip: Plan 48yof who presents for assessment. failed conservative measures, as noted. imaging reviewed, as noted. given symptoms and imaging, prudent to attempt bilateral sij injection under fluoroscopic guidance. will also proceed with right greater troch bursa injection. she is in agreement. meds reviewed, no changes. follow up after procedure. Procedure: Right greater trochanteric bursa injection Medications: Bupivacaine 0.25% 4cc, kenalog 40mg I explained the details of the procedure to the patient including the risks, benefits and alternatives. We had an informed discussion and the patient verbalized understanding and signed the consent form. All questions were answered appropriately.? A time out was performed.? The skin overlying the right lateral hip was prepped with alcohol x3. A sterile syringe containing the above medication was attached to a 25 gauge, 3.5 inch needle under strict aseptic technique. The greater trochanter and point of tenderness was palpated. At this point, the needle was then advanced through the subcutaneous tissue down to os. The needle was withdrawn slightly and the contents of the syringe were gently injected without any resistance. The needle was removed and pressure was applied to the injection site to decrease the incidence of ecchymosis and hematoma formation.? A sterile bandage was applied.
== END 2024-03-26 11:52 | disposition home or self-care (01) ==
LOC: PM 11:52
PROVIDERS: Visit Provider Anesthesiology
DX: M53.3 Sacrococcygeal disorders, not elsewhere classified (principal); M70.61 Trochanteric bursitis, right hip
CPT/HCPCS: 20610; J0665; J3301

== ENCOUNTER 2024-06-11 12:42 | Outpatient (OUT) | payer MEDICARE, MEDICAID, SELFPAY ==
--- NOTE | 2024-06-11 14:18 | PM.CN ---
Consult Note: HPI Data of Consult Patient: known to practice within the last 3 years Consult date: 06/11/24 Requesting Physician: Willian Jensen MD Primary Care Provider: Non-Staff Physician, Consult Narrative Reason for consult: low back, bilateral LE pain Narrative: 49yof who presents for assessment. continues to have significant low back pain with radiation into bilateral lower extremities. has completed PT for 6 weeks without lasting benefit. has undergone various interventional modalities, without lasting benefit. underwent psych eval for scs, deemed to be appropriate candidate. has been told she is not a surgical candidate. uses otc meds as needed. denies adverse med side effects. cc:: CC: Willian Jensen MD Review of Systems ROS Status of ROS 10 or more systems reviewed and unremarkable except as noted in history and below [facility] Medical History Osteoarthritis ?M19.90 - Unspecified osteoarthritis, unspecified site (ICD-10) Fibromyalgia ?M79.7 - Fibromyalgia (ICD-10) IBS (irritable bowel syndrome) ?K58.9 - Irritable bowel syndrome without diarrhea (ICD-10) Constipation ?K59.00 - Constipation, unspecified (ICD-10) Surgical History History of hysterectomy ?Z90.710 - Acquired absence of both cervix and uterus (ICD-10) History of thyroidectomy ?E89.0 - Postprocedural hypothyroidism (ICD-10) Meds Home Medications and Allergies Home Medications ?Medication ?Instructions ?Recorded ?Confirmed ?Type cholecalciferol (vitamin D3) 50 50 mcg PO DAILY 12/30/22 02/13/24 History mcg (2,000 unit) capsule (Vitamin D3) levothyroxine 112 mcg tablet 112 mcg PO DAILY 12/30/22 02/13/24 History liothyronine 5 mcg tablet 10 mcg PO DAILY 12/30/22 02/13/24 History lubiprostone 24 mcg capsule 24 mcg PO DAILY 12/30/22 02/13/24 History magnesium oxide 400 mg (241.3 mg 400 mg PO DAILY 12/30/22 02/13/24 History magnesium) tablet melatonin 10 mg tablet 10 mg PO DAILY 12/30/22 02/13/24 History multivitamin (Daily Multi-Vitamin 1 tab PO DAILY 12/30/22 02/13/24 History tablet) diltiazem HCl 180 mg 240 mg PO Q24H 02/01/23 02/13/24 History capsule,extended release 24 hr Lactobacillus acidophilus 10 100 mmu cells PO DAILY 08/03/23 02/13/24 History billion cell capsule (Probiotic) escitalopram oxalate 20 mg tablet 20 mg PO DAILY 08/03/23 02/13/24 History (Lexapro) ferrous sulfate 325 mg (65 mg 325 mg PO DAILY 08/03/23 02/13/24 History iron) tablet (Feosol) propranolol 20 mg tablet 20 mg PO BID 08/03/23 02/13/24 History turmeric 400 mg capsule mg PO 08/03/23 History Allergies Allergy/AdvReac Type Severity Reaction Status Date / Time No Known Drug Allergies Allergy Verified 02/13/24 09:09 Exam Narrative Exam Narrative: Psych-alert and oriented x 3. Attentive and appropriate, constitutionally normal, displays normal mood and affect per situation. There are no obvious deficits in memory, reasoning, or intellect.? Skin-no obvious rashes, bruising, erythema noted to the patient's area of pain.? Extremities- extremities are warm with minimal edema and palpable pulses. Lumbar-tenderness to palpation noted in the lumbar spine and paraspinal musculature. Pain is not elicited with flexion, extension, and lateral rotation of the lumbar spine. Range of motion is not diminished with these motions. Facet loading maneuvers are negative.? Strength-noted to be unremarkable with the exception of decreased strength rated at 4 out of 5 in bilateral quadriceps femoris, anterior tibialis. Sensory-no notable sensory deficits in the bilateral lower extremities to touch or pinprick in all dermatomal distributions with the exception to decreased sensation to the bilateral L4, 5 dermatomal distribution Coordination remains intact.? Gait remains non-antalgic. Assessment and Plan Assessment and Plan (1) Lumbar spondylosis: (2) Lumbar stenosis with neurogenic claudication: Plan 49yof who presents for assessment. failed conservative measures, as noted. given symptoms and history, would like her to undergo lumbar mri without contrast. discussed that given her failure to respond to other modalities, she may be a good candidate for scs. she is in agreement and would like to pursue this. meds reviewed, no changes. follow up after imaging and procedure.
== END 2024-06-11 12:43 | disposition home or self-care (01) ==
LOC: PM 12:42
PROVIDERS: Visit Provider Anesthesiology
DX: M47.816 Spondylosis without myelopathy or radiculopathy, lumbar region (principal); M48.062 Spinal stenosis, lumbar region with neurogenic claudication
CPT/HCPCS: G0463

== ENCOUNTER 2024-07-13 10:50 | Outpatient (OUT) | payer MEDICARE, MEDICAID, SELFPAY ==
--- NOTE | 2024-07-13 10:54 | ECG_ITS ---
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
--- NOTE | 2024-07-13 11:15 | XR_ITS ---
[address] [address] Patient Name: EMILY TORIBIO MRN: [id number] date: 1975 Sex: F Assigned Patient Location: [facility] Current Patient Location: [facility] Accession/Order Number: [id number] Exam Date: 07/13/2024 11:33 Report Date: 07/14/2024 08:24 At the request of: ANDRIUS GIEDRAITIS Procedure: XR chest 2V EXAMINATION: XR chest 2V HISTORY: Preop exam COMPARISON: No relevant comparison available. TECHNIQUE: PA and lateral FINDINGS: LUNGS: No significant pulmonary parenchymal abnormalities. VASCULATURE: No increased pulmonary vasculature. PLEURA: No pneumothorax, effusion, or pleural thickening. CARDIAC: No cardiomegaly or cardiac silhouette abnormality. MEDIASTINUM: No visible mass or adenopathy. BONES: No fracture or visible bone lesion. OTHER: Negative. XR/XR chest 2V IMPRESSION: No acute cardiopulmonary process Electronically authenticated by: MIR HOLLIDAY Date: 07/14/2024 08:24
--- NOTE | 2024-07-13 11:30 | P.GSHP_ITS ---
History of Present Illness History of Present Illness Chief complaint: LUMBAR STENOSIS WITH CALCIFICATION Narrative: Patient presents for presurgical testing. The patient reports a long history of low and mid back pain for which she has completed physical therapy, injections, and medications with no lasting relief of her symptoms. She denies any significant trauma or injury. She states her pain radiates into both lower extremities but does not have any numbness, tingling, weakness, or loss of bowel or bladder control. Review of Systems ROS Narrative REVIEW OF SYSTEMS: Negative except as stated in HPI, ten or more systems reviewed. Constitutional: No fever, chills, weakness ENT: No sore throat or epistaxis Cardiovascular: No chest pain; intermittent pedal edema, intermittent palpitations, dyspnea with exertion Respiratory: No shortness of breath, cough, or wheezing Gastrointestinal: No abdominal pain, diarrhea, or vomiting Genitourinary: No dysuria or hematuria Neurological: No numbness, tingling, weakness, or headache Psychiatric: No mood changes [facility] Medical History (Updated 07/13/24 @ 11:35 by Toña Sepulveda NP) Lumbago ?M54.50 - Low back pain, unspecified (ICD-10) Thoracic spondylosis ?M47.814 - Spondylosis without myelopathy or radiculopathy, thoracic region (ICD-10) Muscle spasm ?M62.838 - Other muscle spasm (ICD-10) Thoracic neuritis ?M54.14 - Radiculopathy, thoracic region (ICD-10) Chronic pain syndrome ?G89.4 - Chronic pain syndrome (ICD-10) Lumbar spondylosis ?M47.816 - Spondylosis without myelopathy or radiculopathy, lumbar region (ICD-10) Greater trochanteric bursitis of right hip ?M70.61 - Trochanteric bursitis, right hip (ICD-10) Thoracic stenosis ?M48.04 - Spinal stenosis, thoracic region (ICD-10) Chronic bilateral low back pain ?M54.50 - Low back pain, unspecified (ICD-10) ?G89.29 - Other chronic pain (ICD-10) Sacroiliitis ?M46.1 - Sacroiliitis, not elsewhere classified (ICD-10) Sacroiliac joint dysfunction ?M53.3 - Sacrococcygeal disorders, not elsewhere classified (ICD-10) Lumbar stenosis with neurogenic claudication ?M48.062 - Spinal stenosis, lumbar region with neurogenic claudication (ICD- 10) Neck pain ?M54.2 - Cervicalgia (ICD-10) Shoulder pain ?M25.519 - Pain in unspecified shoulder (ICD-10) Arthritis ?M19.90 - Unspecified osteoarthritis, unspecified site (ICD-10) Back pain ?M54.9 - Dorsalgia, unspecified (ICD-10) Dyspnea on exertion ?R06.09 - Other forms of dyspnea (ICD-10) Hypothyroidism ?E03.9 - Hypothyroidism, unspecified (ICD-10) Thyroid disease ?E07.9 - Disorder of thyroid, unspecified (ICD-10) Pseudotumor cerebri ?G93.2 - Benign intracranial hypertension (ICD-10) PTSD (post-traumatic stress disorder) ?F43.10 - Post-traumatic stress disorder, unspecified (ICD-10) Chronic fatigue syndrome ?G93.32 - Myalgic encephalomyelitis/chronic fatigue syndrome (ICD-10) Depression ?F32.A - Depression, unspecified (ICD-10) Anxiety ?F41.9 - Anxiety disorder, unspecified (ICD-10) HTN (hypertension) ?I10 - Essential (primary) hypertension (ICD-10) Palpitations ?R00.2 - Palpitations (ICD-10) Osteoarthritis ?M19.90 - Unspecified osteoarthritis, unspecified site (ICD-10) Fibromyalgia ?M79.7 - Fibromyalgia (ICD-10) IBS (irritable bowel syndrome) ?K58.9 - Irritable bowel syndrome without diarrhea (ICD-10) Constipation ?K59.00 - Constipation, unspecified (ICD-10) Surgical History (Updated 07/13/24 @ 11:15 by Toña Sepulveda NP) S/P epidural steroid injection ?Z92.241 - Personal history of systemic steroid therapy (ICD-10) History of radiofrequency ablation (RFA) of nerve of lumbar spine ?Z98.890 - Other specified postprocedural states (ICD-10) History of colonoscopy ?Z98.890 - Other specified postprocedural states (ICD-10) History of breast biopsy ?Z98.890 - Other specified postprocedural states (ICD-10) H/O section ?Z98.891 - History of uterine scar from previous surgery (ICD-10) History of hysterectomy ?Z90.710 - Acquired absence of both cervix and uterus (ICD-10) History of thyroidectomy ?E89.0 - Postprocedural hypothyroidism (ICD-10) Family History (Updated 07/13/24 @ 11:11 by Toña Sepulveda NP) Other Family history of cancer Family history of diabetes mellitus Family history of heart disease Family history of hypertension Family history of myocardial infarction Family history of stroke Kidney disease Social History (Updated 07/13/24 @ 11:09 by Toña Sepulveda NP) Within the past year, how often did you have a drink containing alcohol: never Score interpretation: A score less than 3 is consistent with normal alcohol consumption. Smoking status: Former smoker Do you use any of these nicotine containing products: vaping products Non-prescribed substance use: denies use Highest level of school completed/degree received: high school graduate Meds Home Medications and Allergies Home Medications ?Medication ?Instructions ?Recorded ?Confirmed ?Type cholecalciferol (vitamin D3) 50 50 mcg PO DAILY 12/30/22 07/13/24 History mcg (2,000 unit) capsule (Vitamin D3) levothyroxine 112 mcg tablet 112 mcg PO DAILY 12/30/22 07/13/24 History liothyronine 5 mcg tablet 5 mcg PO DAILY 12/30/22 07/13/24 History lubiprostone 24 mcg capsule 24 mcg PO DAILY 12/30/22 07/13/24 History magnesium oxide 400 mg (241.3 mg 400 mg PO DAILY 12/30/22 07/13/24 History magnesium) tablet melatonin 10 mg tablet 10 mg PO DAILY 12/30/22 07/13/24 History multivitamin (Daily Multi-Vitamin 1 tab PO DAILY 12/30/22 07/13/24 History tablet) Lactobacillus acidophilus 10 100 mmu cells PO DAILY 08/03/23 07/13/24 History billion cell capsule (Probiotic) escitalopram oxalate 20 mg tablet 20 mg PO DAILY 08/03/23 07/13/24 History (Lexapro) ferrous sulfate 325 mg (65 mg 325 mg PO DAILY 08/03/23 07/13/24 History iron) tablet (Feosol) propranolol 20 mg tablet 20 mg PO BID 08/03/23 07/13/24 History turmeric 400 mg capsule 400 mg PO DAILY 08/03/23 07/13/24 History calcium 500 mg (as 1 tab PO DAILY 07/13/24 07/13/24 History carbonate)-vitamin D3 5 mcg (200 unit) tablet (Oyster Shell Calcium-Vitamin D3) collagen capsule PO 07/13/24 History diltiazem HCl 240 mg 240 mg PO Q24H 07/13/24 07/13/24 History capsule,extended release 24 hr vit B complex-folic acid 400 1 cap PO DAILY 07/13/24 07/13/24 History mcg-choline 20 mg-inositol 50 mg capsule (Super B-50 Complex) Allergies Allergy/AdvReac Type Severity Reaction Status Date / Time No Known Drug Allergies Allergy Verified 07/13/24 11:03 Exam Narrative Exam Narrative: Constitutional: Awake, alert, comfortable, well-appearing, nontoxic, interactive, vital signs as charted Head: Normocephalic, atraumatic Neck: Supple, normal appearance, normal range of motion, no meningeal signs, no lymphadenopathy Respiratory: No respiratory distress, breath sounds clear Cardiovascular: Regular rate and rhythm, strong and regular heart tones Abdomen: Nontender, normal bowel sounds, soft Musculoskeletal: Diffuse tenderness to the lumbar spine and paraspinal musculature, unrestricted ROM Skin: No rashes or induration, no lesions, only visible skin inspected Neuro: No neurological deficits, normal sensation Psychiatric: Oriented ?3, normal affect Assessment and Plan Assessment and Plan (1) Lumbar stenosis with neurogenic claudication: (2) Lumbago: Plan Lumbar spinal cord stimulator trial scheduled with Dr. Jensen July 23, 2024.
== END 2024-07-13 10:51 | disposition home or self-care (01) ==
LOC: PST 10:50
PROVIDERS: Visit Provider Anesthesiology
DX: Z01.810 Encounter for preprocedural cardiovascular examination (principal); Z01.818 Encounter for other preprocedural examination; M54.50 Low back pain, unspecified; M48.062 Spinal stenosis, lumbar region with neurogenic claudication
CPT/HCPCS: 71046; 93005; G0463

== ENCOUNTER 2024-07-23 06:42 | Day surgery (SDC) | payer MEDICARE, MEDICAID, SELFPAY ==
[2024-07-13 11:25] VITALS: BP 156/90; PULSE 66; TEMP 36.3; O2SAT 97; BMI 45.3
[2024-07-23 06:48] VITALS: BP 153/98; PULSE 69; TEMP 36.2; O2SAT 96
[2024-07-23] MEDS: 0.9 % SODIUM CHLORIDE 500 ML IV (07:01)
[2024-07-23] MEDS: CEFAZOLIN SODIUM/DEXTROSE,ISO 2 GM/50 ML PIGGYBACK IV (07:32)
[2024-07-23] MEDS: LIDOCAINE HCL 2%-EPINEPHRINE 1:200,000 20 ML MDV 10 ML INJ (07:57)
[2024-07-23 08:12] VITALS: BP 184/94; PULSE 68; TEMP 36.1; O2SAT 99
--- NOTE | 2024-07-23 08:14 | P.ON_ITS ---
Date of procedure: 07/23/24 Pre-op diagnosis: Lumbar stenosis with neurogenic claudication Post-op diagnosis: same as pre-op Procedure: Procedure: Spinal cord stimulator trial Procedure Performed by: Willian Jensen M.D. Procedure: Placement of [employer] 16 contact neuroelectrode trial leads (x two) under fluoroscopic guidance *Needle Junior Software Engineer at the interspace below T11/12 *Final Lead Placement Level at the bottom of the vertebral body T6 Anesthesia: Monitored Anesthesia Care is medically necessary for the procedure due to the procedure requiring the patient to remain motionless for a prolonged period of time. Procedure: Risks, Benefits, Alternatives were reviewed and informed consent was obtained in the preop holding area. All questions were answered appropriately. The patient was brought to the operating room and placed in the prone position with padding under all bony prominences. A pre-procedure time out was performed specifying pt. name, nature site and side of surgery, and allergies. Anesthesia provided appropriate sedation as the skin over the thoracic and lumbar spine were prepped with duraprep and draped in the usual sterile fashion. Under fluoroscopic guidance, the above noted interspace was identified as the site for epidural needle entry. The skin and subcutaneous tissues were anesthetized approximately 1 level inferior to this point with a mixture of 1% lidocaine and 0.25% bupivacaine. Two 14 gauge tuouy needles were inserted to the superior aspect of the lamina just inferior to the target interspace. Then, using loss of resistance technique as well as fluoroscopic guidance, the epidural space was entered. Two [employer] Trial Stimulator Leads were then advanced under intermittent fluoroscopic guidance until the distal tip of the electrode was observed to be in position at the final position noted above. After appropriate electrode placement was achieved, stimulation was tested intraoperatively with multiple lead configurations until concordant paresthesias were obtained covering the areas of the patients pain. At this point, the needles and stylets were removed carefully and the leads were secured to the skin using steri- strips. The region was covered using a sterile tegaderm bandage. The patient was escorted to the recovery area in stable condition having tolerated the procedure well. Anesthesia: MAC Surgeon: Willian Jensen Pathology: none sent Condition: stable Disposition: no change
[2024-07-23 08:19] VITALS: BP 191/80; PULSE 79; O2SAT 98
--- NOTE | 2024-07-23 08:23 | PC.NURSE ---
Patient sitting up at bedside receiving education from Debbie from [facility]. Pt is tearful and voiced inappropriate frustration to anesthesiologist, believing she didn't get enough medication for sedation for the surgery.
== END 2024-07-23 08:55 | disposition home or self-care (01) ==
PROVIDERS: Visit Provider Anesthesiology
DX: M48.062 Spinal stenosis, lumbar region with neurogenic claudication (principal); E66.01 Morbid (severe) obesity due to excess calories; Z68.41 Body mass index [BMI] 40.0-44.9, adult; Z90.710 Acquired absence of both cervix and uterus; Z87.891 Personal history of nicotine dependence; I10 Essential (primary) hypertension; M79.7 Fibromyalgia; G89.29 Other chronic pain
CPT/HCPCS: 63650; C1778; J0690; J2250; J2704; J3010

== ENCOUNTER 2024-07-26 14:12 | Outpatient (OUT) | payer MEDICARE, MEDICAID, SELFPAY ==
--- NOTE | 2024-07-26 14:55 | PM.CN ---
Consult Note: HPI Data of Consult Patient: known to practice within the last 3 years Requesting Physician: Brielle Dominguez NP Primary Care Provider: Non-Staff Physician, MD Consult Narrative Reason for consult: low back, bilateral LE pain Narrative: 49yof who presents for assessment. continues to have significant low back pain with NC. has completed PT for 6 weeks without lasting benefit. has undergone various interventional modalities, without lasting benefit. has been told she is not a surgical candidate. uses otc meds as needed. denies adverse med side effects. on 07/23/24 underwent spinal cord stimulator trial with >80% improvement in pain and functional ability for low back pain. cc:: CC: Brielle Dominguez NP [facility] Medical History (Updated 07/13/24 @ 11:35 by Toña Sepulveda NP) Lumbago ?M54.50 - Low back pain, unspecified (ICD-10) Thoracic spondylosis ?M47.814 - Spondylosis without myelopathy or radiculopathy, thoracic region (ICD-10) Muscle spasm ?M62.838 - Other muscle spasm (ICD-10) Thoracic neuritis ?M54.14 - Radiculopathy, thoracic region (ICD-10) Chronic pain syndrome ?G89.4 - Chronic pain syndrome (ICD-10) Lumbar spondylosis ?M47.816 - Spondylosis without myelopathy or radiculopathy, lumbar region (ICD-10) Greater trochanteric bursitis of right hip ?M70.61 - Trochanteric bursitis, right hip (ICD-10) Thoracic stenosis ?M48.04 - Spinal stenosis, thoracic region (ICD-10) Chronic bilateral low back pain ?M54.50 - Low back pain, unspecified (ICD-10) ?G89.29 - Other chronic pain (ICD-10) Sacroiliitis ?M46.1 - Sacroiliitis, not elsewhere classified (ICD-10) Sacroiliac joint dysfunction ?M53.3 - Sacrococcygeal disorders, not elsewhere classified (ICD-10) Lumbar stenosis with neurogenic claudication ?M48.062 - Spinal stenosis, lumbar region with neurogenic claudication (ICD-10) Neck pain ?M54.2 - Cervicalgia (ICD-10) Shoulder pain ?M25.519 - Pain in unspecified shoulder (ICD-10) Arthritis ?M19.90 - Unspecified osteoarthritis, unspecified site (ICD-10) Back pain ?M54.9 - Dorsalgia, unspecified (ICD-10) Dyspnea on exertion ?R06.09 - Other forms of dyspnea (ICD-10) Hypothyroidism ?E03.9 - Hypothyroidism, unspecified (ICD-10) Thyroid disease ?E07.9 - Disorder of thyroid, unspecified (ICD-10) Pseudotumor cerebri ?G93.2 - Benign intracranial hypertension (ICD-10) PTSD (post-traumatic stress disorder) ?F43.10 - Post-traumatic stress disorder, unspecified (ICD-10) Chronic fatigue syndrome ?G93.32 - Myalgic encephalomyelitis/chronic fatigue syndrome (ICD-10) Depression ?F32.A - Depression, unspecified (ICD-10) Anxiety ?F41.9 - Anxiety disorder, unspecified (ICD-10) HTN (hypertension) ?I10 - Essential (primary) hypertension (ICD-10) Palpitations ?R00.2 - Palpitations (ICD-10) Osteoarthritis ?M19.90 - Unspecified osteoarthritis, unspecified site (ICD-10) Fibromyalgia ?M79.7 - Fibromyalgia (ICD-10) IBS (irritable bowel syndrome) ?K58.9 - Irritable bowel syndrome without diarrhea (ICD-10) Constipation ?K59.00 - Constipation, unspecified (ICD-10) Surgical History (Updated 07/13/24 @ 11:15 by Toña Sepulveda NP) S/P epidural steroid injection ?Z92.241 - Personal history of systemic steroid therapy (ICD-10) History of radiofrequency ablation (RFA) of nerve of lumbar spine ?Z98.890 - Other specified postprocedural states (ICD-10) History of colonoscopy ?Z98.890 - Other specified postprocedural states (ICD-10) History of breast biopsy ?Z98.890 - Other specified postprocedural states (ICD-10) H/O section ?Z98.891 - History of uterine scar from previous surgery (ICD-10) History of hysterectomy ?Z90.710 - Acquired absence of both cervix and uterus (ICD-10) History of thyroidectomy ?E89.0 - Postprocedural hypothyroidism (ICD-10) Family History (Updated 07/13/24 @ 11:11 by Toña Sepulveda NP) Other Family history of cancer Family history of diabetes mellitus Family history of heart disease Family history of hypertension Family history of myocardial infarction Family history of stroke Kidney disease Social History (Updated 07/13/24 @ 11:09 by Toña Sepulveda NP) Within the past year, how often did you have a drink containing alcohol: never Score interpretation: A score less than 3 is consistent with normal alcohol consumption. Smoking status: Former smoker Do you use any of these nicotine containing products: vaping products Non-prescribed substance use: denies use Highest level of school completed/degree received: high school graduate Meds Home Medications and Allergies Home Medications ?Medication ?Instructions ?Recorded ?Confirmed ?Type cholecalciferol (vitamin D3) 50 50 mcg PO DAILY 12/30/22 07/23/24 History mcg (2,000 unit) capsule (Vitamin D3) levothyroxine 112 mcg tablet 112 mcg PO DAILY 12/30/22 07/23/24 History liothyronine 5 mcg tablet 5 mcg PO DAILY 12/30/22 07/23/24 History lubiprostone 24 mcg capsule 24 mcg PO DAILY 12/30/22 07/23/24 History magnesium oxide 400 mg (241.3 mg 400 mg PO DAILY 12/30/22 07/23/24 History magnesium) tablet melatonin 10 mg tablet 10 mg PO DAILY 12/30/22 07/23/24 History multivitamin (Daily Multi-Vitamin 1 tab PO DAILY 12/30/22 07/23/24 History tablet) Lactobacillus acidophilus 10 100 mmu cells PO DAILY 08/03/23 07/23/24 History billion cell capsule (Probiotic) escitalopram oxalate 20 mg tablet 20 mg PO DAILY 08/03/23 07/23/24 History (Lexapro) ferrous sulfate 325 mg (65 mg 325 mg PO DAILY 08/03/23 07/23/24 History iron) tablet (Feosol) propranolol 20 mg tablet 20 mg PO BID 08/03/23 07/23/24 History turmeric 400 mg capsule 400 mg PO DAILY 08/03/23 07/23/24 History calcium 500 mg (as 1 tab PO DAILY 07/13/24 07/23/24 History carbonate)-vitamin D3 5 mcg (200 unit) tablet (Oyster Shell Calcium-Vitamin D3) collagen capsule PO 07/13/24 History diltiazem HCl 240 mg 240 mg PO Q24H 07/13/24 07/23/24 History capsule,extended release 24 hr vit B complex-folic acid 400 1 cap PO DAILY 07/13/24 07/23/24 History mcg-choline 20 mg-inositol 50 mg capsule (Super B-50 Complex) Allergies Allergy/AdvReac Type Severity Reaction Status Date / Time No Known Drug Allergies Allergy Verified 07/23/24 06:58 Exam Narrative Exam Narrative: Psych-alert and oriented x 3. Attentive and appropriate, constitutionally normal, displays normal mood and affect per situation. There are no obvious deficits in memory, reasoning, or intellect.? Skin-no obvious rashes, bruising, erythema noted to the patient's area of pain.? Extremities- extremities are warm with minimal edema and palpable pulses. Lumbar-tenderness to palpation noted in the lumbar spine and paraspinal musculature. Pain is not elicited with flexion, extension, and lateral rotation of the lumbar spine. Range of motion is not diminished with these motions. Facet loading maneuvers are negative.? Strength-noted to be unremarkable with the exception of decreased strength rated at 4 out of 5 in bilateral quadriceps femoris, anterior tibialis. Sensory-no notable sensory deficits in the bilateral lower extremities to touch or pinprick in all dermatomal distributions with the exception to decreased sensation to the bilateral L4, 5 dermatomal distribution Coordination remains intact.? Gait remains non-antalgic. Assessment and Plan Assessment and Plan (1) Lumbar stenosis with neurogenic claudication: Plan Pt presents for evaluation of chronic low back pain secondary to lumbar stenosis with NC.? The patient presents today for evaluation of Spinal Cord Stimulator trial.? The patient has completed the prescribed anti-biotic course.? She denies any fevers, chills, or night sweats.? The patient states that during the trial pain was decreased by 80%.?She states that her activity level was significantly increased.? The patient has decided to? proceed with SCS implant. The dressings were removed.? Sutures were released.? The leads were removed without difficulty.? The insertion sites are clean, dry, and non-erythematous.? There is no Tenderness to palpation.? proceed with permanent spinal cord stimulator implant with Dr Jensen
== END 2024-07-26 14:13 | disposition home or self-care (01) ==
LOC: PM 14:12
PROVIDERS: Visit Provider Nurse Practitioner
DX: M48.062 Spinal stenosis, lumbar region with neurogenic claudication (principal)
CPT/HCPCS: G0463

== ENCOUNTER 2024-11-27 14:18 | Outpatient (OUT) | payer MEDICARE, MEDICAID, SELFPAY ==
--- NOTE | 2024-11-28 09:49 | PM.PRESUREVA ---
History of Present Illness History of Present Illness Chief complaint: lumbar stenosis with neuro claudication Narrative: Patient is for presurgical testing. The patient reports a long history of mid and low back pain. The patient underwent a spinal cord stimulator trial in June of this year which was successful. She continues to take Tylenol as needed to help with her discomfort. She denies any new trauma or injury, numbness, tingling, weakness, or any other complaints. Review of Systems ROS Narrative REVIEW OF SYSTEMS: Negative except as stated in HPI, ten or more systems reviewed. Constitutional: No fever, chills, weakness ENT: No sore throat or epistaxis Cardiovascular: No chest pain, palpitations, or activity intolerance Respiratory: No shortness of breath, cough, or wheezing Gastrointestinal: No abdominal pain, constipation, diarrhea, or vomiting Genitourinary: No dysuria or hematuria Neurological: No numbness, tingling, weakness, or headache Psychiatric: No mood changes [facility] Medical History (Updated 07/13/24 @ 11:35 by Toña Sepulveda NP) Lumbago �M54.50 - Low back pain, unspecified (ICD-10) Thoracic spondylosis �M47.814 - Spondylosis without myelopathy or radiculopathy, thoracic region (ICD-10) Muscle spasm �M62.838 - Other muscle spasm (ICD-10) Thoracic neuritis �M54.14 - Radiculopathy, thoracic region (ICD-10) Chronic pain syndrome �G89.4 - Chronic pain syndrome (ICD-10) Lumbar spondylosis �M47.816 - Spondylosis without myelopathy or radiculopathy, lumbar region (ICD-10) Greater trochanteric bursitis of right hip �M70.61 - Trochanteric bursitis, right hip (ICD-10) Thoracic stenosis �M48.04 - Spinal stenosis, thoracic region (ICD-10) Chronic bilateral low back pain �M54.50 - Low back pain, unspecified (ICD-10) �G89.29 - Other chronic pain (ICD-10) Sacroiliitis �M46.1 - Sacroiliitis, not elsewhere classified (ICD-10) Sacroiliac joint dysfunction �M53.3 - Sacrococcygeal disorders, not elsewhere classified (ICD-10) Lumbar stenosis with neurogenic claudication �M48.062 - Spinal stenosis, lumbar region with neurogenic claudication (ICD-10) Neck pain �M54.2 - Cervicalgia (ICD-10) Shoulder pain �M25.519 - Pain in unspecified shoulder (ICD-10) Arthritis �M19.90 - Unspecified osteoarthritis, unspecified site (ICD-10) Back pain �M54.9 - Dorsalgia, unspecified (ICD-10) Dyspnea on exertion �R06.09 - Other forms of dyspnea (ICD-10) Hypothyroidism �E03.9 - Hypothyroidism, unspecified (ICD-10) Thyroid disease �E07.9 - Disorder of thyroid, unspecified (ICD-10) Pseudotumor cerebri �G93.2 - Benign intracranial hypertension (ICD-10) PTSD (post-traumatic stress disorder) �F43.10 - Post-traumatic stress disorder, unspecified (ICD-10) Chronic fatigue syndrome �G93.32 - Myalgic encephalomyelitis/chronic fatigue syndrome (ICD-10) Depression �F32.A - Depression, unspecified (ICD-10) Anxiety �F41.9 - Anxiety disorder, unspecified (ICD-10) HTN (hypertension) �I10 - Essential (primary) hypertension (ICD-10) Palpitations �R00.2 - Palpitations (ICD-10) Osteoarthritis �M19.90 - Unspecified osteoarthritis, unspecified site (ICD-10) Fibromyalgia �M79.7 - Fibromyalgia (ICD-10) IBS (irritable bowel syndrome) �K58.9 - Irritable bowel syndrome without diarrhea (ICD-10) Constipation �K59.00 - Constipation, unspecified (ICD-10) Surgical History (Updated 11/23/24 @ 11:56 by Toña Sepulveda NP) S/P insertion of spinal cord stimulator (07/23/24) �Z96.89 - Presence of other specified functional implants (ICD-10) S/P epidural steroid injection �Z92.241 - Personal history of systemic steroid therapy (ICD-10) History of radiofrequency ablation (RFA) of nerve of lumbar spine �Z98.890 - Other specified postprocedural states (ICD-10) History of colonoscopy �Z98.890 - Other specified postprocedural states (ICD-10) History of breast biopsy �Z98.890 - Other specified postprocedural states (ICD-10) H/O section �Z98.891 - History of uterine scar from previous surgery (ICD-10) History of hysterectomy �Z90.710 - Acquired absence of both cervix and uterus (ICD-10) History of thyroidectomy �E89.0 - Postprocedural hypothyroidism (ICD-10) Family History (Updated 07/13/24 @ 11:11 by Toña Sepulveda NP) Other Family history of cancer Family history of diabetes mellitus Family history of heart disease Family history of hypertension Family history of myocardial infarction Family history of stroke Kidney disease Social History (Updated 07/13/24 @ 11:09 by Toña Sepulveda NP) Within the past year, how often did you have a drink containing alcohol: never Score interpretation: A score less than 3 is consistent with normal alcohol consumption. Smoking status: Former smoker Do you use any of these nicotine containing products: vaping products Non-prescribed substance use: denies use Highest level of school completed/degree received: high school graduate Meds Home Medications and Allergies Home Medications �Medication �Instructions �Recorded �Confirmed �Type cholecalciferol (vitamin D3) 50 50 mcg PO DAILY 12/30/22 11/27/24 History mcg (2,000 unit) capsule (Vitamin D3) liothyronine 5 mcg tablet 5 mcg PO DAILY 12/30/22 11/27/24 History lubiprostone 24 mcg capsule 24 mcg PO DAILY PRN IBS -C 12/30/22 11/27/24 History magnesium oxide 400 mg (241.3 mg 400 mg PO DAILY 12/30/22 11/27/24 History magnesium) tablet melatonin 10 mg tablet 10 mg PO DAILY 12/30/22 11/27/24 History multivitamin (Daily Multi-Vitamin 1 tab PO DAILY 12/30/22 11/27/24 History tablet) Lactobacillus acidophilus 10 100 mmu cells PO DAILY 08/03/23 11/27/24 History billion cell capsule (Probiotic) escitalopram oxalate 20 mg tablet 20 mg PO DAILY 08/03/23 11/27/24 History (Lexapro) ferrous sulfate 325 mg (65 mg 325 mg PO DAILY 08/03/23 11/27/24 History iron) tablet (Feosol) propranolol 20 mg tablet 20 mg PO BID 08/03/23 11/27/24 History calcium 500 mg (as 1 tab PO DAILY 07/13/24 11/27/24 History carbonate)-vitamin D3 5 mcg (200 unit) tablet (Oyster Shell Calcium-Vitamin D3) collagen capsule PO 07/13/24 History diltiazem HCl 240 mg 240 mg PO Q24H 07/13/24 11/27/24 History capsule,extended release 24 hr vit B complex-folic acid 400 1 cap PO DAILY 07/13/24 11/27/24 History mcg-choline 20 mg-inositol 50 mg capsule (Super B-50 Complex) cephalexin 500 mg capsule 500 mg PO Q8H celulitis 11/27/24 11/27/24 History furosemide 40 mg tablet 40 mg PO DAILY 11/27/24 11/27/24 History levothyroxine 125 mcg tablet 125 mcg PO DAILY 11/27/24 11/27/24 History potassium chloride 10 mEq 10 meq PO BID 11/27/24 11/27/24 History tablet,extended release(part/cryst) Allergies Allergy/AdvReac Type Severity Reaction Status Date / Time No Known Drug Allergies Allergy Verified 11/27/24 14:30 Exam Narrative Exam Narrative: Constitutional: Awake, alert, comfortable, well-appearing, nontoxic, interactive, vital signs as charted Head: Normocephalic, atraumatic Neck: Supple, normal appearance, normal range of motion, no meningeal signs, no lymphadenopathy Respiratory: No respiratory distress, breath sounds clear Cardiovascular: Regular rate and rhythm, strong and regular heart tones Abdomen: Nontender, normal bowel sounds, soft Musculoskeletal: Normal gait, 2+ pitting pedal edema bilaterally, bilateral lumbar paraspinal muscle tenderness throughout, spine range of motion limited due to pain Skin: No rashes or induration, no lesions, only visible skin inspected Neuro: No neurological deficits, normal sensation Psychiatric: Oriented �3, normal affect Assessment and Plan Assessment and Plan (1) Lumbar stenosis with neurogenic claudication: (2) Back pain: Plan Lumbar spinal cord stimulator implant scheduled with Dr. Erickson December 10, 2024. Date of Service Date of Service Date of service: 11/27/24
== END 2024-11-27 14:19 | disposition home or self-care (01) ==
LOC: PST 14:19
PROVIDERS: Visit Provider Anesthesiology
DX: Z01.818 Encounter for other preprocedural examination (principal); M48.062 Spinal stenosis, lumbar region with neurogenic claudication
CPT/HCPCS: G0463

== ENCOUNTER 2024-12-17 06:41 | Day surgery (SDC) | payer MEDICARE, MEDICAID, SELFPAY ==
--- OUTSIDE RECORDS SUMMARY | 2018-01-25 09:00 | XMS_ITS | Continuity of Care Document ---
Author Organization [facility] Address [address] [place] [address] Phone Care Team Providers Care Bow Maker Name Role Phone Antoine Leonard DMD Unavailab [...] Diagnoses Date Provider Providers Copied on Encounter [facility], [address] [place] [address], [place], [place], [id number] , [place] tel:[phone] Dental Clinic prophy (chief complaint) Encounter for screening for dental disorders 8 [facility]etrice [facility]. [address] [facility], [place], [address], [place]. tel:[phone] [facility], [address] [facility], [place], [place], [address] , [place] tel:[phone] Dental Clinic prophy (chief complaint) Encounter for screening for dental disorders 7 Preet Merchantbo. [address] [facility], [place], [address], [place]. tel:[phone] [facility], [address] [facility], [facility] [place], [address] , [place] tel:[phone] Dental Clinic extraction (chief complaint) Encounter for screening for dental disorders 7 Declan Andriy Snell. [address] [facility], [place], [address], [place]. tel:[phone] 23 [facility], [address] [place], [place], [address] , [place] tel:[phone] Dental Clinic dental limited (chief complaint) Encounter for screening for dental disorders 7 Preet Moreno. [address] [facility], [place], [address], [place]. tel:[phone] [facility], [address] [facility], [facility] [place], [address] , [place] tel:[phone] Dental Clinic Encounter for screening for dental disorders [address] [facility] August. [address] [facility], [address], [place]. tel:[phone] [facility], [address] [facility] [place], [address] , [place] tel:[phone] Dental Clinic prophy (chief complaint) Encounter for screening for dental disorders [address] [facility] August. [address] [facility], [place], [place], [address], [place]. tel:[phone] 23 [facility], [address] [place], [place], [address] , [place] tel:[phone] Dental Clinic Encounter for screening for dental disorders 6 Beau DMD Nanette. [address] [place], [place], [address], [place]. tel:[phone] 23 OFFICE/OUTPA TIENT VISIT, EST [facility], [address] [place], [place], [address] , [place] tel: [phone] [facility] repeat pap (chief complaint) Papanicolaou smear of cervix with atypical squamous cells of undetermined significance (ASC-US) 4 [facility] Evelyn. [address] [place], [place], [address], [place]. tel:[phone] PREV VISIT, EST, AGE 12-17 [facility], [address] [place], [place], [address] , [place] tel: [phone] [facility] annual visit (chief complaint) Gynecological ExaminationMam venecia, Screening 3 Jer Cleveland. [address] [place], [place], [address], [place]. tel:[phone] OFFICE/OUTPA TIENT VISIT, EST [facility], [address] [place], [place], [address] , [place] tel: [phone] [facility] No Information 2 Lamp Megha. [address] [place], [place], [address], [place]. tel:[phone] [facility], [address] [place], [place], [address] , [place] tel: [phone] [facility] No Information 2 Visci DO Gadiel. [address] [place], [place], [address], [place]. tel:[phone] [facility], [address] [place], [place], [address] , [place] tel: [phone] [facility] No Information 2 Lamp Megha. [address] [place], [place], [address], [place]. tel:[phone] 23 [facility], [address] [place], [place], [address] , [place] tel: [phone] [facility] No Information 2- 0 Jer Cleveland. [address] [place], [place], [address], [place]. tel:[phone] OFFICE/OUTPA TIENT VISIT, [facility], [address] [place], [place], [address] , [place] tel: [phone] [facility] No Information 9 Milton ROSARIOLoren Arriola. [address] [place], [place], [address]. tel:[phone] OFFICE/OUTPA TIENT VISIT, [facility], [address] [place], [place], [address] , [place] tel: [phone] [facility] No Information 9 No Information OFFICE/OUTPA TIENT VISIT, [facility], [address] [place], [place], [address] , [place] tel: [phone] [facility] No Information 9 Tere Sloan. [address] [place], [place], [address], [place]. tel:[phone] OFFICE/OUTPA TIENT VISIT, [facility], [address] [place], [place], [address] , [place] tel: [phone] [facility] No Information 9 Tere Sloan. [address] [place], [place], [address], [place]. tel:[phone] PREV VISIT, EST, AGE 18-39 [facility], [address] [place], [place], [address] , [place] tel: [phone] [facility] No Information 0 6200 9 Donavon Avina. [address] [place], [place], [address]. tel:[phone] 23 OFFICE/OUTPA TIENT VISIT, EST [facility], [address] [place], [place], [address] , [place] tel:[phone] [facility] No Information 8 Tere Sloan. [address] [place], [place], [address], [place]. tel:[phone] 23 Family History Family Member Type Diagnosis [...] alcoholism Payers Payer name Insurance type Covered democrat ID Authoriza tion(s) No Information Social History [...] due Goal Tdap. Due on due Goal Mammogram. Due on [...]
--- OUTSIDE RECORDS SUMMARY | 2024-10-08 10:45 | XMS_ITS ---
Author Organization [facility] Servic es Address [address] [place] [address] Care Team Providers Care Clinical Biochemist Name Role Phone Radha Mcintosh Primary Care Provider Gissell Kaufman Unavailable [phone] REASON FOR VISIT 3 month f/u Encounters Encounter Location Date Provider Diagnosis [facility] [address] [place] [address] 10/08/2024 Radha Mcintosh Plan Of Treatment Next Appt Details Provider Name:Radha Mcintosh, 0 01/16/2025 01:45:00 PM, [address] [place], [address], Provider Name:Bob Niranjan, 0 02/21/2025 10:35:00 AM, [address], [place], [address], Provider Name:Gissell Kaufman , 07/04/2025 02:20:00 PM, [address], [place], [address], Progress Notes * VANI TORIBIO:1975 ([age] yo F)Acc No.[id number]:10/08/2024 Behavioral Health Patient: Brent EMILY RIVERA Appointment Provider: Kaiden Mcintosh :1975 A ge:49 Y S ex:Female Date:10/08/2024 Address:[address], [place], [id number] Subjective: * Chief Complaints: * 1 . 3 month f/u. * Medical History: Objective: * Vitals: Assessment: Plan: * Treatment: * Images: * Electronic signature of MARIBEL Mckinney on 12/17/2024 at 06:44 AM EDT Sign off status: Pending * Appointment Provider: Kaiden Mcintosh Date: 0 10/08/2024 Generated for Joshua saunders/Debora/Yo on: 0 12/17/2024 06:44 AM EDT
[2024-11-27 14:45] VITALS: BP 132/82; PULSE 74; TEMP 36.3; O2SAT 97; BMI 49.2
--- OUTSIDE RECORDS SUMMARY | 2024-12-17 06:44 | XMS_ITS | Encounter Summary ---
Author Organization [facility] Address [facility] [place] [address] Care Team Providers Care Door To Door Lead Generation Name Role Phone Simón Davidson DO Unavailable [phone] Source Comments In the event this information is protected by the Federal Confidentiality of Alcohol and Drug AbusePatient Records regulations: The Federal rules restrict any use of the information to criminally investigate or prosecute any alcohol or drug abuse patient.[facility] Encounter Details Date Type Department Care Team (Late st Contact Info) Description 07/07/2023 Get Medical Advice Rheumatology [address] [facility] [place] [address] Stephie Brambila MD [address] [place] [address] Waiting for response Social History Tobacco Use Types Packs/Day Years Used Date Smoking Tobacco: Former Cigarettes Q uit: 07/30/2011 Alcohol Use Standard Drinks/Week Comments No 0 (1 standard drink = 0.6 oz pur e alcohol) socially Area Deprivation Index Answer Date Jaime rded National Score (1-100), lower number is lower ri 65 05/17/2023 State Score (1-10), lower number is lower risk 4 05/17/2023 Data from: https://www.neighborhoodatlas.medicine.[facility].edu/. Last address used for calculation [address] 05/17/2023 Comments No Sex and Gender Information Value Date Recorded Sex Assigned at Not on file Legal Sex Female 1:57 PM EDT Gender Identity Not on file Sexual Orientation Not on file Occupation Industry Job Start Date Job End Date unemployed Not on file Not on file Not on file documented as of this encounter Functional Status * Are you deaf or do you have serious difficulty hearing? Answer Date of Assessment Author No 01/18/2014 2:33 PM EDT Roula Gold * Are you blind or do you have serious difficulty seeing, even when wearing glasses? Answer Date of Assessment Author No 01/18/2014 2:33 PM EDT Roula Gold * Do you have serious difficulty walking or climbing stairs? Answer Date of Assessment Author Yes 01/18/2014 2:33 PM EDT Roula Gold * Do you have difficulty dressing or bathing? Answer Date of Assessment Author No 01/18/2014 2:33 PM EDT Roula Gold * Because of a physical, mental, or emotional condition, do you have difficulty doing errands alone such as visiting a doctor's office or shopping? Answer Date of Assessment Author Yes 01/18/2014 2:33 PM EDT Roula Gold documented as of this encounter Mental Status * Because of a physical, mental, or emotional condition, do you have serious difficulty concentrating, remembering, or making decisions? Answer Entry Date Author Yes 01/18/2014 2:33 PM EDT Roula Gold documented in this encounter Plan of Treatment Not on file documented as of this encounter Visit Diagnoses Not on filedocumented in this encounter Care Teams Door To Door Lead Generation Relationship Specialty Start Date End Date Simón Davidson DO Referring Family Medicine 11/22/22 documented as of this encounter
--- OUTSIDE RECORDS SUMMARY | 2024-12-17 06:44 | XMS_ITS | Encounter Summary ---
Author Organization [facility] Address [facility] [place] [address] Care Team Providers Care Promotions Intern Name Role Phone Simón Davidson DO Unavailable Source Comments In the event this information is protected by the Federal Confidentiality of Alcohol and Drug AbusePatient Records regulations: The Federal rules restrict any use of the information to criminally investigate or prosecute any alcohol or drug abuse patient.[facility] Encounter Details Date Type Department Care Team (Late st Contact Info) Description 06/28/2023 Get Medical Advice Rheumatology [address] [facility] [place] [address] Stephie Brambila MD [address] [place] [address] Follow up for testing Social History Tobacco Use Types Packs/Day Years Used Date Smoking Tobacco: Former Cigarettes Q uit: 07/30/2011 Alcohol Use Standard Drinks/Week Comments No 0 (1 standard drink = 0.6 oz pur e alcohol) socially Area Deprivation Index Answer Date Jaime rded National Score (1-100), lower number is lower ri sk 65 05/17/2023 State Score (1-10), lower number is lower risk 4 05/17/2023 Data from: https://www.neighborhoodatlas.medicine.[facility].edu/. Last address used for calculation [address] [...] on filedocumented in this encounter Care Teams Promotions Intern Relationship Specialty Start Date End Date Simón Davidson DO Referring Family Medicine 11/22/22 documented as of this encounter
--- OUTSIDE RECORDS SUMMARY | 2024-12-17 06:44 | XMS_ITS | Encounter Summary ---
Author Organization [facility] Address [address] [place] [address] Phone Care Team Providers Care Alternative Medicine Practitioner Name Role Phone Simón Davidson DO Primary Care Provider + Encounter Details Date Type Department Care Team (Late st Contact Info) Description 11/09/1976 Scanned Document [facility] [address] [place] [phone] Scanning, Generic Provider Social History Tobacco Use Types Packs/Day Years Used Date Smoking Tobacco: Never Assessed Comments Unknown Sex and Gender Information Value Date Recorded Sex Assigned at Not on file Legal Sex Female 12:23 AM EST Gender Identity Not on file Sexual Orientation Not on file documented as of this encounter Plan of Treatment Not on file documented as of this encounter Procedures Procedure Name Priority Date/Time Associated Diagnosis Comments ECHOCARDIOGRAM 11/09/1976 documented in this encounter Results * Echocardiogram (11/09/1976) Narrative 11/09/1976 Ordered by an unspecified provider. us Generic Provider Scanning CV ECHO PROCEDURES Fin al Result documented in this encounter Visit Diagnoses Not on filedocumented in this encounter Care Teams Alternative Medicine Practitioner Relationship Specialty Start Date End Date Simón Davidson DO [address] [place] [address] PCP - General 10/21/17 documented as of this encounter
--- OUTSIDE RECORDS SUMMARY | 2024-12-17 06:44 | XMS_ITS | Clinical Summary ---
Author Organization [facility] Address [address] [place] [id number] Care Team Providers Care Molybdenum Steamer Operator Name Role Phone Simón Davidson DO Unavailable [phone] Allergies No known active allergies Medications Glucosamine-Cho ndroitin 500-400 mg tablet Take 1 tablet by mouth three times daily. Active FE FUMARATE/CA CARB/VITAMIN D3 (CALCIUM-VITD3- FERROUS FUMARATE ORAL) Take by mouth. Active Multivitamin capsule Take 1 capsule by mouth once daily. Active B Complex-Folic Acid 0.4 mg tab Take by mouth. Active acidophilus-pec tin, citrus (ACIDOPHILUS PROBIOTIC) 100 million-10 cell-mg cap Take by mouth. Active thyroid, pork, (ARMOUR THYROID) 60 mg tab Take by mouth. Active METHADONE HCL (METHADONE ORAL) Take by mouth. Active sertraline (ZOLOFT) 100 mg tablet Take 100 mg by mouth once daily. Active Topiramate (TOPAMAX) 50 mg tablet Take 50 mg by mouth twice daily. Active zolpidem (AMBIEN) 10 mg tab Take by mouth at bedtime as needed. Active buPROPion XL (WELLBUTRIN XL) 300 mg 24 hr tablet Take 300 mg by mouth once daily. Active Calcium Carbonate-Vitam in D3 (VITAMIN D-3) 180-5,000 mg-unit tab Take by mouth. Active Vehicle Base No.24, Bulk, (VERSABASEA) crea Active PROGESTERONE, BULK, MISC Active Conj Estrog-Medroxyp rogest Tyrel 0.3-1.5 mg per tablet Take 1 tablet by mouth once daily. Active FOLIC ACID, BULK, MISC Active metaxalone 800 mg tablet Take 800 mg by mouth three times daily. Active CALCIUM CARBONATE/VITAM IN D3 (CALCIUM + D ORAL) Take by mouth. Active CYANOCOBALAMIN/ COBAMAMIDE (B12 SUBLINGUAL) Dissolve under the tongue. Active ALPRAZolam 1 mg tablet Take 1 mg by mouth at bedtime as needed. Active amitriptyline 25 mg tablet Take 25 mg by mouth daily at bedtime. Active metroNIDAZOLE (METROGEL) 1 % gel Apply to affected area. Active lubiprostone (AMITIZA) 24 mcg capsule Take 24 mcg by mouth twice daily with meals. Active liothyronine (CYTOMEL) 5 mcg tablet Take 5 mcg by mouth once daily. Active levothyroxine (SYNTHROID) 112 mcg tablet Take 1 tablet (112 mcg) by mouth daily in the morning on an empty stomach 04/30/2023 Active Cholecalciferol , Vitamin D3, 50 mcg (2,000 unit) cap Take 1 capsule by mouth every afternoon. 02/19/2023 Active dilTIAZem CD (CARDIZEM CD, CARTIA XT) 240 mg 24 hr capsule Take 1 capsule by mouth every afternoon. 04/25/2023 Active escitalopram oxalate (LEXAPRO) 10 mg tablet Take 1 tablet by mouth every afternoon. 05/02/2023 Active HYDROcodone-tyrel taminophen (NORCO) 5-325 mg per tablet TAKE 1 TABLET BY MOUTH 2 TIMES A DAY NEEDED FOR PAIN 05/08/2023 Active magnesium oxide (MAG-OX) 400 mg (241.3 mg magnesium) tablet Take by mouth every 12 hours. 06/04/2022 Active propranolol (INDERAL) 20 mg tablet TAKE 1 TABLET BY MOUTH 2 TIMES A DAY NEEDED FOR ANXIETY 05/03/2023 Active temazepam (RESTORIL) 30 mg cap TAKE 1 CAPSULE BY MOUTH ONCE A DAY (AT BEDTIME) NEEDED FOR SLEEP 30 DAY SUPPLY 07/27/2022 Active vit B-comp w-Fe,Ca,FA<1mg (IRON-VITAMINS ORAL) Take by mouth. Active melatonin 10 mg tab Take by mouth. Active Active Problems Problem Noted Date Diagnosed Date Chronic pain 01/18/2014 Depression Arthritis Fibromyalgia Neck pain Back pain Hypothyroid Irritable bowel syndrome Family History Medical History Relation Comments ALCOHOLIC [Other] Father Cancer Maternal Grandmother DEPRESSION [Other] Mother parkinsons [Other] Paternal Grandfather Cancer Paternal Grandmother Relation Status Comments Father Maternal Grandmother Mother Paternal Grandfather Paternal Grandmother Social History Tobacco Use Types Packs/Day Years Used Date Smoking Tobacco: Former Cigarettes Q uit: 07/30/2011 Tobacco Cessation:Counseling Given: Not Answered Alcohol Use Standard Drinks/Week Comments No 0 (1 standard drink = 0.6 oz pur e alcohol) socially Area Deprivation Index Answer Date Jaime rded National Score (1-100), lower number is lower ri sk 65 05/17/2023 State Score (1-10), lower number is lower risk 4 05/17/2023 Data from: https://www.neighborhoodatlas.medicine.[facility].edu/. Last address used for calculation [address] 05/17/2023 Comments No Sex and Gender Information Value Date Recorded Sex Assigned at Not on file Legal Sex Female 1:57 PM EDT Gender Identity Not on file Sexual Orientation Not on file Occupation Industry Job Start Date Job End Date unemployed Not on file Not on file Not on file Last Filed Vital Signs Vital Sign Reading Time Taken Comments Blood Pressure 144/81 05/17/2023 2:01 PM EST Pulse 70 05/17/2023 2:01 PM EST Temperature - - Respiratory Rate 18 05/17/2023 2:01 PM EST Oxygen Saturation 98% 05/17/2023 2:01 PM EST Inhaled Oxygen Concentration - - Weight 121.8 kg (268 lb 8.3 oz) 05/17/2023 2:01 PM EST Height 170.2 cm (5' 7 ) 01/18/2014 2:26 PM EDT Body Mass Index 42.06 01/18/2014 2:26 PM EDT Plan of Treatment Health Maintenance Due Date Last Done Comments DTaP,Tdap,Td Vaccine (4 - Tdap) 1988 10/11/1979, 08/01/1979, 04/18/1979, Additional history exists Annual PCP Team Chronic Dise ase Visit 1995 Anxiety Screening 1995 HIV Screening 1995 Hepatitis C Screening 1995 Cervical Cancer Screening 1998 Medicare Annual Wellness Visit 08/28/2013 CT Colonography 2022 Cologuard (FIT-DNA) 2022 Colonoscopy 2022 Colorectal Cancer Screening 2022 Fecal Occult Blood 2022 Lipid Screening 2022 Sigmoidoscopy 2022 Mammogram Screening 12/30/2023 12/29/2022 Covid-19 Vaccine (2023-2 5 season) 2024 Influenza Vaccine (#1) 2025 Diabetes Screening 05/19/2026 05/19/2023 Hepatitis B Vaccine Completed 06/05/2001, 12/28/2000, 11/14/2000 Procedures Procedure Name Priority Date/Time Associated Diagnosis Comments COMPREHENSIVE METABOLIC PANEL Routine 05/19/2023 8:07 AM EST Positive WILL (antinuclear antibody) from Last 3 Months or Most Recently Relevant to Health Maintenance Results * (ABNORMAL) COMP METABOLIC PANEL (05/19/2023 8:07 AM EST) Protein, Total 6.7 6.3 - 8.0 g/dL 05/19/2023 8:43 AM EST [facility] Albumin 4.1 3.9 - 4.9 g/dL 05/19/2023 8:43 AM EST [facility] Calcium, Total 9.2 8.5 - 10.2 mg/dL 05/19/2023 8:43 AM EST [facility] Bilirubin, Total 0.2 0.2 - 1.3 mg/dL 05/19/2023 8:43 AM EST [facility] Alkaline Phosphatase 62 34 - 123 U/L 05/19/2023 8:43 AM EST [facility] AST 10(L) 13 - 35 U/L 05/19/2023 8:43 AM EST [facility] ALT 19 7 - 38 U/L 05/19/2023 8:43 AM EST [facility] Glucose 105(H) 74 - 99 mg/dL 05/19/2023 8:43 AM EST [facility] Comment: The [place] Diabetes Association (ADA) provides guidance for cutoff [...] Standards of Medical Care in Diabetes 2016, [place] [employer] Association. Diabetes Care. 2016.39(Suppl 1). BUN 17 7 - 21 mg/dL 05/19/2023 8:43 AM [facility] Creatinine 0.65 0.58 - 0.96 mg/dL 05/19/2023 8:43 AM [facility] Sodium 142 136 - 144 mmol/L 05/19/2023 8:43 AM [facility] Potassium 4.3 3.7 - 5.1 mmol/L 05/19/2023 8:43 AM [facility] Chloride 106(H) 97 - 105 mmol/L 05/19/2023 8:43 AM [facility] CO2 27 22 - 30 mmol/L 05/19/2023 8:43 AM [facility] Anion Gap 9 9 - 18 mmol/L 05/19/2023 8:43 AM [facility] Estimated Glomerular Filtration Rate 110 >=60 mL/min/1. 73m 05/19/2023 8:43 AM [facility] Comment:Estimated Glomerular Filtration Rate (eGFR) is calculated using the 2020 CKD-EPI creatinine equation. This equation utilizes serum creatinine, sex, and age as parameters. The creatinine assay has traceable calibration to isotope dilution- mass spectrometry. Refer to KDIGO guidelines for clinical interpretation. In patients with unstable renal function, e.g. those with acute kidney injury, the eGFR may not accurately reflect actual GFR. Blood BLOOD SPECIMEN / Unknown Venipuncture / Unknown 05/19/2023 8:07 AM EST 05/19/2023 8:08 AM EST Stephie Brambila MD LABORATORY Final Result [facility] [address] [place] [address] from Last 3 Months or Most Recently Relevant to Health Maintenance Insurance MEDICARE Member Subscriber Plan / Payer (Ef fective 2013-Present) Name:Lupe Pickard Member ID:[id number] Relation to Subscriber:Self Name:Mariah Pickardrosalie Pimentel Subscriber ID:[id number] Payer ID:Not on file Group ID:Not on file Type:Medicare Address: [place] [id number] [place]ICA[place] Care Teams Molybdenum Steamer Operator Relationship Specialty Start Date End Date Simón Davidson DO Referring Family Medicine 11/22/22
--- OUTSIDE RECORDS SUMMARY | 2024-12-17 06:44 | XMS_ITS | Encounter Summary ---
Author Organization [facility] Address [address] [place] [address] Phone Care Team Providers Care Armature Winder Repair Name Role Phone Simón Davidson DO Primary Care Provider + Encounter Details Date Type Department Care Team (Late st Contact Info) Description 06/21/2022 Orders Only [facility] [address] [place] [address] Conversion, Onbase Social History Tobacco Use Types Packs/Day Years Used Date Smoking Tobacco: Never Assessed Comments Unknown Sex and Gender Information Value Date Recorded Sex Assigned at Not on file Legal Sex Female 12:23 AM EST Gender Identity Not on file Sexual Orientation Not on file documented as of this encounter Plan of Treatment Scheduled Orders Name Type Priority Associated Diagnoses Orde r Schedule OUTSIDE LAB SCAN Lab Ordered: 06/21/2022 documented as of this encounter Visit Diagnoses Not on filedocumented in this encounter Care Teams Armature Winder Repair Relationship Specialty Start Date End Date Simón Davidson DO [address] [facility] [place] [address] PCP - General 10/21/17 documented as of this encounter
--- OUTSIDE RECORDS SUMMARY | 2024-12-17 06:44 | XMS_ITS | Encounter Summary ---
Author Organization [facility] Address [address] [place] [address] Phone Care Team Providers Care Canteen Attendant Name Role Phone Simón Davidson DO Primary Care Provider + Encounter Details Date Type Department Care Team (Late st Contact Info) Description 09/20/2022 Orders Only [facility] [address] [place] [address] Conversion, Onbase Social History Tobacco Use Types [...] r Schedule OUTSIDE LAB SCAN Lab Ordered: 09/20/2022 documented as of this encounter Visit Diagnoses Not on filedocumented in this encounter Care Teams Canteen Attendant Relationship Specialty Start Date End Date Simón Davidson DO [address] [facility] [place] [address] PCP - General 10/21/17 documented as of this encounter
--- OUTSIDE RECORDS SUMMARY | 2024-12-17 06:44 | XMS_ITS | Patient Health Record ---
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 Bob Ureña Unavailable [phone] Mary Fu Unavailable [phone] Allergies No Known Allergies Reason For Referral No Information Medications Medication SIG (Take, Route, Frequency, Duration) Notes Start Date End Date Status Meclofenamate Sodium 50 MG 1 capsule Orally prn bleeding; Duration: 30 Not-Takin g Cleocin 2 % 1 application at bedtime Vaginal Once a day; Duration: 5 days 08/20/2014 Not-Taking Cardizem CD 240 MG 1 capsule Orally Onc e a day Active Propranolol HCl 20 MG 1 tablet Orally twice daily As needed Active Tylenol Extra Strength 500 MG 2 tablets Orally twice a day Active hydrOXYzine Pamoate 25 MG 1 capsule Oral ly every 6 hours as needed for anxiety 03/04/2023 Active Liothyronine Sodium 5 MCG 2 tablet on an empty stomach Orally Once a day Active Magnesium Oxide 400 MG 1 tablet Orally t wice a day Active Escitalopram Oxalate 20 MG TAKE 1 TABLET Orally Once a day; Duration: 90 days Active oxyCODONE HCl 5 MG 1 tablet as needed Orally 2x a day Not-Taking Vitamin D3 50 MCG (1999 UT) 1 capsule Orally Once a day Active Linzess 72 MCG 1 capsule at least 3 0 minutes before the first meal of the day on an empty stomach Orally Once a day Not-Taking Aspirin 81 81 MG 1 tablet Orally Once a day Not-Taking Tramadol 50 mg 2 tablets orally twi ce a day Not-Taking Oyster Shell Calcium/D 500-5 MG-MCG 1 tablet with meals Orally Twice a day Not-Taking Baclofen 10 MG 1 tablet Orally Twic e a day Not-Taking Skelaxin Not-Taking Topamax Not-Taking Elavil Not-Taking Amitiza Not-Taking Semaglutide-Weight Management 0.25 MG/0.5ML 0.5 mL Subcutaneous Not-Taking Wellbutrin Not-Takin g metroNIDAZOLE Not-Ta salomon Turmeric Active SEROquel Not-Taking Iron 325 (65 Fe) MG 1 tablet Orally 1x a day Active Zoloft Not-Taking Super B Complex Acti ve Probiotic Active SEROquel XR Not-Taki ng Melatonin 10 MG as directed Orally Active Social History Tobacco Use: Social History Observation Description Date Details (start date - stop date) Former Smoker NA - NA Tobacco Screen: Question Answer Notes Are you a: former smoker How long has it been since you last smoked? 1-3 months Alcohol Screening: Question Answer Notes Did you have a drink containing alcohol in the p ast year? No Points 0 Interpretation Negative Depression Screening (PHQ-9): Question Answer Notes Little interest or pleasure in doing things Manuela ral days Feeling down, depressed, or hopeless Not at all Trouble falling or staying asleep, or sleeping t oo much Not at all Feeling tired or having little energy Nearly anca ry day Poor appetite or overeating Not at all Feeling bad about yourself-o r that you are a failure or have let yourself or your family down Not at all Trouble concentrating on thi ngs, such as reading the newspaper or watching television Several days Moving or speaking so slowly that other people could have noticed. Or the opposite being so fidgety or restless that you have been moving around a lot more than usual Several days Thoughts that you would be b emely off , or of hurting yourself in some way Not at all Total Score 6 Intepretation Mild Depression Problems Problem Type SNOMED Code ICD Code Onset Dates Problem Status W/U Status Risk Notes Problem Generalized anxiety disorder (29657803) Generalized Anxiety Disorder (SANDRA) (F41.1) Active confirmed Problem Body mass index 40+ - morbidly obese (960995694) BMI 40.0-44.9, adult (Z68.41) Active confirmed Problem Depressive disorder (19861790) Unspecified Depressive Disorder (F32.9) Active confirmed Problem Posttraumatic stress disorder (62666320) Post traumatic stress disorder (F43.10) Active confirmed Vital Signs Heart Rate 88 /min 10/24/2024 Oximetry 98 % 10/24/2024 Blood pressure diastolic 80 mm Hg 10/24/2024 Height 67.5 in 10/24/2024 Blood pressure systolic 130 mm Hg 10/24/2024 Weight 307.0 lbs 10/24/2024 BMI 47.37 kg/m2 10/24/2024 Encounters Encounter Location Date Provider Diagnosis [facility] [address] [place] [address] 01/02/2024 Radha Mcintosh Generalized Anxiety Disorder (SANDRA) F41.1 [facility] [address] [place] [address] 01/03/2024 Radha Mcintosh [place] [address] [place] [address] 01/03/2024 Radha Mcintosh Generalized Anxiety Disorder (SANDRA) F41.1 [facility] [address] [place] [address] 05/24/2024 Radha Mcintosh Generalized Anxiety Disorder (SANDRA) F41.1 [place] [address] [place] [address] 06/25/2024 Radha Mcintosh Generalized Anxiety Disorder (SANDRA) F41.1 [place] [address] [place] [place] [address] 05/01/2024 Mary Fu Other dental procedure status Z98.818 ; Acute gingivitis, plaque induced K05.00 ; Encounter for dental examination and cleaning with abnormal findings Z01.21 ; Dental caries on pit and fissure surface penetrating into dentin K02.52 and Necrosis of pulp K04.1 [facility] [address] [place] [address] 11/01/2024 Gissell Kaufman Acute gingivitis, plaque induced K05.00 [facility] [address] [place] [address] 10/24/2024 Radha Mcintosh Generalized Anxiety Disorder (SANDRA) F41.1 and Post traumatic stress disorder F43.10 [facility] [address] [place] [address] 04/18/2024 Radha Mcintosh Generalized Anxiety Disorder (SANDRA) F41.1 ; Unspecified Depressive Disorder F32.9 and Post traumatic stress disorder F43.10 [facility] [address] [place] [address] 07/18/2024 Radha Mcintosh Generalized Anxiety Disorder (SANDRA) F41.1 ; Unspecified Depressive Disorder F32.9 and Post traumatic stress disorder F43.10 [facility] [address] [place] [address] 01/31/2024 Radha Mcintosh Generalized Anxiety Disorder (SANDRA) F41.1 ; Unspecified Depressive Disorder F32.9 and Post traumatic stress disorder F43.10 Assessments Encounter Date Diagnosis (ICD Code) Assessment Notes Treatment Notes Treatment Clinical Notes Section Notes 04/18/2024 Generalized Anxiety Disorder (SANDRA) (ICD-10 - F41.1) Recommended treatment is: FDA approved medication for this age group include Selective Serotonin Reuptake Inhibitors (SSRI) and Selective Norepinephrine Reuptake Inhibitors (SNRI). . Selective serotonin reuptake inhibitors can cause nausea, headache, upset stomach, diarrhea, constipation, anxiety, irritability, and sexual dysfunction. . Please monitor for worsening of symptoms, especially suicidal ideations or morbid thoughts, and call office and or go to the emergency department immediately. Pt does not endorse exhibiting symptoms aligning with brittany. . The patient verbalizes understanding with all questions answered thoroughly and is in agreement with treatment plan. . Continue current treatment plan Patient/Guardian will call sooner if symptoms worsen. Patient understands to go to ER if needed if symptoms become severe. Crisis Intervention plan was discussed and agreed upon. Patient/Guardian will call 911 in case of emergency. Emergency contact information was provided to the patient/guardian. 01/31/2024 Generalized Anxiety Disorder (SANDRA) (ICD-10 - F41.1) Recommended treatment is: _ FDA approved medication for this age group include Selective Serotonin Reuptake Inhibitors (SSRI) and Selective Norepinephrine Reuptake Inhibitors (SNRI). . Selective serotonin reuptake inhibitors can cause nausea, headache, upset stomach, diarrhea, constipation, anxiety, irritability, and sexual dysfunction. . Please monitor for worsening of symptoms, especially suicidal ideations or morbid thoughts, and call office and or go to the emergency department immediately. Pt does not endorse exhibiting symptoms aligning with brittany. . The patient verbalizes understanding with all questions answered thoroughly and is in agreement with treatment plan. . Continue current treatment plan Patient/Guardian will call sooner if symptoms worsen. Patient understands to go to ER if needed if symptoms become severe. Crisis Intervention plan was discussed and agreed upon. Patient/Guardian will call 911 in case of emergency. Emergency contact information was provided to the patient/guardian. 10/24/2024 Generalized Anxiety Disorder (SANDRA) (ICD-10 - F41.1) Recommended treatment is: FDA approved medication for this age group include Selective Serotonin Reuptake Inhibitors (SSRI) and Selective Norepinephrine Reuptake Inhibitors (SNRI). . Selective serotonin reuptake inhibitors can cause nausea, headache, upset stomach, diarrhea, constipation, anxiety, irritability, and sexual dysfunction. . Please monitor for worsening of symptoms, especially suicidal ideations or morbid thoughts, and call office and or go to the emergency department immediately. Pt does not endorse exhibiting symptoms aligning with brittany. . The patient verbalizes understanding with all questions answered thoroughly and is in agreement with treatment plan. . Continue current treatment plan Patient/Guardian will call sooner if symptoms worsen. Patient understands to go to ER if needed if symptoms become severe. Crisis Intervention plan was discussed and agreed upon. Patient/Guardian will call 911 in case of emergency. Emergency contact information was provided to the patient/guardian. 10/24/2024 Post traumatic stress disorder (ICD-10 - F43.10) 01/31/2024 Unspecified Depressive Disorder (ICD-10 - F32.9) 04/18/2024 Unspecified Depressive Disorder (ICD-10 - F32.9) 05/01/2024 Other dental procedure status (ICD-10 - Z98.818) 11/01/2024 Acute gingivitis, plaque induced (ICD-10 - K05.00) 07/18/2024 Generalized Anxiety Disorder (SANDRA) (ICD-10 - F41.1) Recommended treatment is: _ FDA approved medication for this age group include Selective Serotonin Reuptake Inhibitors (SSRI) and Selective Norepinephrine Reuptake Inhibitors (SNRI). . Selective serotonin reuptake inhibitors can cause nausea, headache, upset stomach, diarrhea, constipation, anxiety, irritability, and sexual dysfunction. . Please monitor for worsening of symptoms, especially suicidal ideations or morbid thoughts, and call office and or go to the emergency department immediately. Pt does not endorse exhibiting symptoms aligning with brittany. . The patient verbalizes understanding with all questions answered thoroughly and is in agreement with treatment plan. . Continue current treatment plan Patient/Guardian will call sooner if symptoms worsen. Patient understands to go to ER if needed if symptoms become severe. Crisis Intervention plan was discussed and agreed upon. Patient/Guardian will call 911 in case of emergency. Emergency contact information was provided to the patient/guardian. 07/18/2024 Unspecified Depressive Disorder (ICD-10 - F32.9) 01/02/2024 Generalized Anxiety Disorder (SANDRA) (ICD-10 - F41.1) 01/03/2024 Generalized Anxiety Disorder (SANDRA) (ICD-10 - F41.1) 05/24/2024 Generalized Anxiety Disorder (SANDRA) (ICD-10 - F41.1) 06/25/2024 Generalized Anxiety Disorder (SANDRA) (ICD-10 - F41.1) 05/01/2024 Acute gingivitis, plaque induced (ICD-10 - K05.00) 07/18/2024 Post traumatic stress disorder (ICD-10 - F43.10) 04/18/2024 Post traumatic stress disorder (ICD-10 - F43.10) 01/31/2024 Post traumatic stress disorder (ICD-10 - F43.10) 05/01/2024 Encounter for dental examination and cleaning with abnormal findings (ICD-10 - Z01.21) 05/01/2024 Dental caries on pit and fissure surface penetrating into dentin (ICD-10 - K02.52) 05/01/2024 Necrosis of pulp (ICD-10 - K04.1) Plan Of Treatment Next Appt Details Provider Name:Radha Mcintosh, 0 01/16/2025 01:45:00 PM, [address] [facility], [place], [address], Provider Name:Bob Ureña, 0 02/21/2025 10:35:00 AM, [address] [place], [address], Provider Name:Gissell Kaufman , 07/04/2025 02:20:00 PM, [address], [place], [address], Insurance Providers Payer Name Payer Address Payer Phone Subscriber Number Group Number Insured Name Patient Relationship to Insured Coverage Start Date Coverage End Date MEDICARE CGS 1 [employer] [employer] [facility] [place] [address] [phone] [id number] EMILY TORIBIO Self - patient is the insured 0 MEDICAID SEC TO [facility] [address] [place] [address] [phone] [id number] EMILY TORIBIO Self - patient is the insured 0 [facility] MEDICAID [place] [address] [place] [address] [phone] [id number] EMILY TORIBIO Self - patient is the insured 0 MEDICAID SEC TO [facility] [address] [place] [address] [phone] [id number] EMILY TORIBIO Self - patient is the insured 1 Medical (General) History Medical History History ICD Code Fibromyalgia Anxiety Depression IBS-C Hypothyroid Chronic insomnia GERD Chronic pain bilateral lower back pain Vitamin D Deficiency Overactive bladder Lyme Disease Surgical History Surgery Date(Month/Year) X4 Hysterectomy 11/27/2014 Nerve ablations from bulging disc Thyroidectomy 05/30/2017 Hospitalization History Reason Date(Month/Year) see surgical
--- OUTSIDE RECORDS SUMMARY | 2024-12-17 06:44 | XMS_ITS | Encounter Summary ---
Author Organization [facility] Address [address] [place] [address] Phone Care Team Providers Care Bolt Header Name Role Phone Simón Davidson DO Primary Care Provider + Encounter Details Date Type Department Care Team (Late st Contact Info) Description 01/03/2018 Orders Only [facility] [address] [place] [address] Conversion, Onbase Social History Tobacco Use Types [...] r Schedule OUTSIDE LAB SCAN Lab Ordered: 01/03/2018 documented as of this encounter Visit Diagnoses Not on filedocumented in this encounter Care Teams Bolt Header Relationship Specialty Start Date End Date Simón Davidson DO [address] [facility] [place] [address] PCP - General 10/21/17 documented as of this encounter
--- OUTSIDE RECORDS SUMMARY | 2024-12-17 06:44 | XMS_ITS | Encounter Summary ---
Author Organization [facility] Address [address] [place] [address] Phone Care Team Providers Care Track Moving Machine Operator Name Role Phone Simón Davidson DO Primary Care Provider + Encounter Details Date Type Department Care Team (Late st Contact Info) Description 11/05/2022 Orders Only [facility] [address] [place] [address] Conversion, Onbase Social History Tobacco Use Types [...] r Schedule OUTSIDE LAB SCAN Lab Ordered: 11/05/2022 documented as of this encounter Visit Diagnoses Not on filedocumented in this encounter Care Teams Track Moving Machine Operator Relationship Specialty Start Date End Date Simón Davidson DO [address] [facility] [place] [address] PCP - General 10/21/17 documented as of this encounter
--- OUTSIDE RECORDS SUMMARY | 2024-12-17 06:44 | XMS_ITS | Clinical Summary ---
Author Organization [facility] Address [address] [place] [address] Phone Care Team Providers Care Wiping Rag Washer Name Role Phone StuartSimón Nils Primary Care Provider + Medications ALPRAZolam (Xanax) 1 mg tablet Take 0.5 tablets (0.5 mg) by mouth as needed at bedtime. 08/24/2017 Active baclofen (Lioresal) 10 mg tablet Take 1 tablet (10 mg) by mouth 2 times a day. 03/14/2017 Active cholecalciferol (Vitamin D-3) 50,000 unit capsule Take 1 capsule (50,000 Units) by mouth 1 (one) time per week. 12/04/2015 Active levothyroxine (Tirosint) 112 mcg capsule Take 1 capsule (112 mcg) by mouth once daily. Active linaCLOtide (Linzess) 145 mcg capsule Take 1 capsule (145 mcg) by mouth once daily in the morning. Take before meals. Do not crush or chew. Active liothyronine (Cytomel) 5 mcg tablet Take 1 tablet (5 mcg) by mouth 2 times a day. Active magnesium oxide (Mag-Ox) 400 mg tablet Take 1 tablet (400 mg) by mouth 2 times a day. Active melatonin 10 mg tablet Take 1 tablet (10 mg) by mouth once daily at bedtime. Active metoprolol succinate XL (Toprol-XL) 50 mg 24 hr tablet Take 1 tablet (50 mg) by mouth once daily. Do not crush or chew. Active calcium carbonate-vitam in D3 (Oyster Shell Calcium-Vit D3) 500 mg-5 mcg (200 unit) tablet Take 1 tablet by mouth once daily. Active traMADol ER (Ultram-ER) 100 mg 24 hr tablet Take 1 tablet (100 mg) by mouth 2 times a day. Do not crush, chew, or split. 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 Vertical diplopia 04/19/2023 Anxiety 04/19/2023 Atrial tachycardia 04/19/2023 Chest pain 04/19/2023 Hypothyroidism 04/19/2023 Palpitations 04/19/2023 PVC (premature ventricular contraction) 04/19/20 Shortness of breath 04/19/2023 Vitamin D deficiency 04/19/2023 Family History Medical History Relation Name Comments No Known Problems Father No Known Problems Mother Relation Name Status Comments Father Mother Social History Tobacco Use Types Packs/Day Years Used Date Smoking Tobacco: Former Cigarettes Tobacco Cessation:Counseling Given: Not Answered Alcohol Use Standard Drinks/Week Comments Yes 0 (1 standard drink = 0.6 oz pur e alcohol) socially Comments Unknown Sex and Gender Information Value Date Recorded Sex Assigned at Not on file Legal Sex Female 12:23 AM EST Gender Identity Not on file Sexual Orientation Not on file Last Filed Vital Signs Vital Sign Reading Time Taken Comments Blood Pressure 128/80 12/08/2022 8:50 AM EDT Pulse 80 12/08/2022 8:50 AM EDT Temperature - - Respiratory Rate - - Oxygen Saturation - - Inhaled Oxygen Concentration - - Weight 122 kg (270 lb) 12/08/2022 8:50 AM EDT Height 170.2 cm (5' 7 ) 12/08/2022 8:50 AM EDT Body Mass Index 42.29 12/08/2022 8:50 AM EDT Plan of Treatment Health Maintenance Due Date Last Done Comments CT Colonography 1977 Colonoscopy 1977 Colorectal Cancer Screening 1977 FIT-DNA (Cologuard) 1977 FIT 1977 HIV Screening 1977 Lipid Panel 1977 Medicare Annual Wellness Vis it (AWV) 1977 Sigmoidoscopy 1977 TSH Level 1977 MMR Vaccines (1 of 1 - Stand joanie series) 1978 Hepatitis C Screening 1995 Hepatitis B Vaccines (1 of 3 - 19+ 3-dose series) 1996 Cervical Cancer Screening 1998 HPV/Cotest 1998 Pap Smear 1998 DTaP/Tdap/Td Vaccines (1 - Tdap) 1999 Mammogram 2017 COVID-19 Vaccine (1 - 2023-2 5 season) 2024 Influenza Vaccine (#1) 2025 Zoster Vaccines (1 of 2) 2027 HIB Vaccines Aged Out No longer eligi ble based on patient's age to complete this topic HPV Vaccines Aged Out No longer eligi ble based on patient's age to complete this topic Hepatitis A Vaccines Aged Out No long er eligible based on patient's age to complete this topic IPV Vaccines Aged Out No longer eligi ble based on patient's age to complete this topic Meningococcal Vaccine Aged Out No soniya lanny eligible based on patient's age to complete this topic Pneumococcal Vaccine: Pediat rics and At-Risk Adult Patients Aged Out No longer med gible based on patient's age to complete this topic Rotavirus Vaccines Aged Out No longer eligible based on patient's age to complete this topic Insurance MEDICARE PART A AND B MEDICAID Care Teams Wiping Rag Washer Relationship Specialty Start Date End Date Simón Davidson DO [address] [id number] PCP - General 10/21/17
--- OUTSIDE RECORDS SUMMARY | 2024-12-17 06:44 | XMS_ITS | Encounter Summary ---
Author Organization [facility] Address [address] [place] [address] Phone Care Team Providers Care Socket Puller Name Role Phone Simón Davidson DO Primary Care Provider + Encounter Details Date Type Department Care Team (Late st Contact Info) Description 03/17/2023 Scanned Document [facility] [address] [place] [id number] Scanning, Generic Provider Social History Tobacco Use [...] on filedocumented in this encounter Care Teams Socket Puller Relationship Specialty Start Date End Date Simón Davidson DO [address] [facility] [place] [address] PCP - General 10/21/17 documented as of this encounter
--- OUTSIDE RECORDS SUMMARY | 2024-12-17 06:44 | XMS_ITS | Encounter Summary ---
Author Organization [facility] Address [address] [place] [address] Phone Care Team Providers Care Corporate Auditor Name Role Phone Simón Davidson DO Primary Care Provider + Encounter Details Date Type Department Care Team (Late st Contact Info) Description 12/20/2022 Orders Only [facility] [address] [place] [address] Conversion, Onbase Social History Tobacco Use Types [...] r Schedule OUTSIDE LAB SCAN Lab Ordered: 12/20/2022 documented as of this encounter Visit Diagnoses Not on filedocumented in this encounter Care Teams Corporate Auditor Relationship Specialty Start Date End Date Simón Davidson DO [address] [facility] [place] [address] PCP - General 10/21/17 documented as of this encounter
--- OUTSIDE RECORDS SUMMARY | 2024-12-17 06:46 | XMS_ITS | CCD ---
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 Name Role Phone Donya Billings Primary Care Provider Oscar Reed Unavailable DO Donya Billings Primary Care Provider MARCELLUS Marr Attending Provider MD Phillip Benjamin Attending Provider DO Steve Coronel Emergency Provider [phone] Oliver Mario Unavailable Donya Billings Unavailable Unavailable Unavailable Unavailable Unavailable DO Donya Billings Primary Care Provider MD Phillip Benjamin Attending Provider DO Steve Coronel Emergency Provider MD Kenyetta Dove Attending Provider [phone] Unavailable Primary Care Provider Unavailabl DO Donya [...] BHAVNA Consulting Unavailable Awa, Dr. Donya Wray [facility] Benjamin, Dr. Koehler Attending Unavaila ble Awa, Dr. Donya Wray [facility] Benjamin, Dr. Koehler Attending Unavaila ble Lavonne, Dr. Koehler Attending Unavaila ble Awa, Dr. Donya Wray [facility] Benjamin, Dr. Koehler Referring Unavaila ble Lavonne, Dr. Koehler Referring Unavaila ble Awa, Dr. Donya Wray [facility] Benjamin, Dr. Koehler Attending Unavaila ble Awa, Dr. Donya Wray [facility] c[facility] Benjamin, Dr. Koehler Referring Unavaila ble Awa, Dr. Donya Wray [facility] Reynamaprasanth Benjamin, Dr. Koehler Attending Unavaila ble Awa, Dr. Donya Wray [facility] Benjamin, Dr. Koehler Attending Unavaila ble Lavonne, Dr. Koehler Referring Unavaila ble Awa, DO Donya Ashraf Primary Care Provider DO Yogi Michaels Emergency Provider Gaurav simeon [facility], PHYSICIAN Primary Care Provider Unava BHAVIN Dsouza Emergency Provider MD Amanda Montiel Attending Provider DO Melissa Singh II Primary Care Provider [phone] DO Mariya Kumari Emergency Provider MD Franklyn Herman Attending Provider MD Phillip Benjamin Other Provider Beny Hoskins Unavailable [phone] DO Yogi Michaels Emergency Provider ReynavaMD Kenyetta Cee Attending Provider [phone] DO Melissa Singh II Other Provider [phone] MARCELLUS Mcintosh Attending Provider NO [facility], PHYSICIAN Primary Care Provider Unava MD Beny Cheng Attending Provider MAXIMILIANO Aguirre Other Provider [phone] Awa BARAKAT Dnoya Andriy Unavailable [facility] Referring Unavaila ble [facility] Attending Unavaila ble [facility] Referring Unavaila ble [facility] Attending Unavaila ble James, Roula Unavailable DO Melissa Singh II Primary Care Provider DO Jorge Jarrett Emergency Provider [phone] DO Melissa Singh II Primary Care Provider DO Jorge Jarrett Emergency Provider DO Melissa Singh II Attending Provider MARCELLUS Dominguez Attending Provider MAXIMILIANO Lozoya Emergency Provider Samantha AVALOS DO Melissa Primary Care Provider Samantha II, DO [facility] Primary Care Provider Self, Referral Attending Provider Unavailable MD Melissa Coon Primary Care Provider MARCELLUS Dennis Attending Provider MD Kenyetta Dove Attending Provider Melissa Coon MD Primary Care Provider Melissa Coon MD Primary Care Provider [phone] Giedraruma MD, Andrius Attending Provider Melissa Coon MD Primary Care Provider Giedraitis MD, Andrius Attending Provider Melissa Coon MD Attending Provider [phone] Giedraitis MD, Andrius Vytautas Attending Unavailable Giedraitis MD, Andrius Vytautas Attending Unavailable Giedraitis MD, Andrius Vytautas Attending Unavailable Giedraitis MD, Andrius Vytautas Attending Unavailable Giedraitis MD, Andrius Vytautas Attending Unavailable Giedraitis MD, Andrius Vytautas Attending Unavailable Giedraitis MD, Andrius Vytautas Attending Unavailable Giedraitis MD, Andrius Vytautas Attending Unavailable Giedraitis MD, Andrius Vytautas Attending Unavailable Giedraitis MD, Andrius Vytautas Attending Unavailable Chaz Carrillo DO Attending Provider [phone] Derrell PELAYO, Kenyetta Attending Provider [phone] Derrell PELAYO, Kenyetta F Unavailable [phone] Donya Ozuna MD Unavailable Amanda Montiel MD Unavailable Krish Hodge MD Unavailable Gato PELAYO, Beny Unavailable [phone] Melissa Coon MD Primary Care Provider Chaz Carrillo DO Attending Provider Tanner Menendez PA-C Attending Provider Derrell PELAYO, Kenyetta Referring Provider [phone] Shaggy PELAYO, Melissa Primary Care Provider [phone] Risaliti DRY DIP WORKER-C, Dalia Attending Provider Shaggy PELAYO, Melissa Primary Care Provider Derrell PELAYO, Kenyetta Attending Provider [phone] Robbie Dale MD Attending Provider Shaggy PELAYO, Melissa Primary Care Provider Rodney CHRISTIE, Omid Chávez Attending Provider [phone] [facility] Melissa Primary Care Unavailable [place], Melissa Attending Unavailable Shaggy, Melissa Admitting Unavailable Chaz Carrillo Attending Unavailable Chaz Carrillo Admitting Unavailable Shaggy, Melissa Primary Care Unavailable Derrell, Ahmad Admitting Unavailable Shaggy, Melissa Primary Care Unavailable Derrell, Ahmad Attending Unavailable Tanner Menendez Admitting Unavailable Tanner Menendez Attending Unavailable [place], Melissa Primary Care Unavailable Derrell, Ahmad Referring Unavailable Derrell, Ahmad Admitting Unavailable Derrell, Ahmad Attending Unavailable [place], Melissa Primary Care Unavailable Tanner Menendez Attending Unavailable Tanner Menendez Admitting Unavailable [place], Melissa Primary Care Unavailable Risaliti, Dalia Attending Unavailable Hill, Melissa Primary Care Unavailable Risaliti, Dalia Admitting Unavailable Derrell, Ahmad Admitting Unavailable Edrrell, Ahmad Attending Unavailable Shaggy, Melissa Primary Care Unavailable Risaliti, Dalia Attending Unavailable Risaliti, Dalia Admitting Unavailable [place], Melissa Primary Care Unavailable Omid Quan Attending Unavailable Omid Quan Admitting Unavailable Shaggy, Melissa Primary Care Unavailable Self, Referral Attending Unavailable Stephanieey II, Melissa J Primary Care Unavailable Self, Referral Admitting Unavailable Risaliti, Dalia Admitting Unavailable Risaliti, Dalia Attending Unavailable Shaggy, Melissa Primary Care Unavailable Derrell, Ahmad Attending Unavailable Derrell, Ahmad Admitting Unavailable Hill, Melissa Primary Care Unavailable Giedraitis, Andrius Attending Unavailable Giedraitis, Andrius Admitting Unavailable [place], Melissa Primary Care Unavailable Donya OZUNA Attending Unavailable MD Santos Johnston Admitting Unavailable MD Santos Johnston Attending Unavailable NONE, XXXX Referring Unavailable DO Melissa Singh Attending Unavailable Zeinab Galicia Attending Unavailable NONE, XXXX Referring Unavailable Eldon Yates Admitting Unavailable Eldon Yates Attending Unavailable MELISSA COON Attending Unavailable JESSE DOVEMAPatrick F Attending Unavailable DERRELL AHMAD F Referring Unavailable ANTHONYDIVYATANNER Attending Unavailable DALIA DENNIS Attending Unavailable MELISSA COON Referring Unavailable MELISSA COON Attending Unavailable MELISSA COON Attending Unavailable DERRELL, JESSEMAPatrick F Attending Unavailable DERRELL, AHMAD F Referring Unavailable MELISSA COON Referring Unavailable Allergies Allergy Classification Reported Allergen(s) Allergy Type Date of Onset Reaction(s) Facility (1 source) Latex; Translations: [Latex] Propensity to adverse reactions (disorder) [facility] Repository (1 source) venlafaxine; Translations: [Effexor] Drug Allergy [facility] Repository Medications Current Medications Medication Drug Class(es) Dates Sig (Normalized) Sig (Original) acetaminophen 500 mg oral tablet (20 sources) Start: 09-20-2022 take 2 tablets by mouth twice daily Start: 09-20-2022 take 1000 mg by mout h twice daily Acetaminophen Active 1000 MG PO Twice daily September 20, 2022 12:00am Tylenol bid Acti ve amoxicillin 875 mg oral tablet (1 source) Penicillin-class Antibacterial Start: 07-08-2023 take 1 tablet by mouth every twelve hours Amoxicillin 875 MG 1 tablet Orally Twice a day for 10 days Jun, Active Aspir-81 (4 sources) Aspir-81 Active B Hgnakzt-Pxbmvo-BX (Super Quints B-50) tablet (20 sources) B Rzlswfc-Wmfbta-MD (Super Quints B-50) tablet Take by mouth Active Calcium (13 sources) Phosphate Binder, Calcium CALCIUM ORAL Calcium + D Active 0 Active Calcium + D Acti ve Calcium Carb-Cholecalciferol (CALCIUM 600 + D PO) (12 sources) Calcium Carb-Cholecalciferol (CALCIUM 600 + D PO) Take by mouth Active cephalexin 500 mg oral capsule (2 sources) Cephalosporin Antibacterial Start : 11-21 End: 11-28 take 1 capsule by mouth in the morning, then take 1 capsule by mouth in the evening, then take 1 capsule by mouth at bedtime cephalexin (Keflex) 500 MG capsule Indications: Cellulitis of right lower extremity Take 1 capsule (500 mg) by mouth in the morning and 1 capsule (500 mg) in the evening and 1 capsule (500 mg) before bedtime. Do all this for 7 days. 21 capsule 11/21/2024 11/28/2024 Active cholecalciferol 0.05 mg oral capsule (20 sources) Vitamin D Start : 09-24 take 1 capsule by mouth in the morning cholecalciferol (Vitamin D-3) 50 MCG (2000 UT) capsule Indications: Primary osteoarthritis involving multiple joints Take 1 capsule (50 mcg) by mouth in the morning. 30 capsule 11 09/24/2024 Active Start: 02-19-2023 take 1 capsule by mo uth in the morning cholecalciferol (Vitamin D-3) 50 [...] daily. 0 08/13/2022 Active Start: 07-18-2018 take 1 capsule by mo uth every week take 1 capsule by mo uth once daily Vitamin D3 1.25 MG (70992 UT) Oral Capsule TAKE 1 CAPSULE Daily Quantity: 0 Refills: 0 Ordered: 28-Jul-2022 DO Active Comment on above: Take 1 capsule by mo uth every afternoon. Collagen (20 sources) COLLAGEN PO Take by mouth Active diclofenac sodium 50 mg delayed release oral tablet (6 sources) Nonsteroidal Anti-inflammatory Drug take 1 tablet by mouth in the morning diclofenac (Voltaren) 50 MG EC tablet Take 1 tablet by mouth in the morning and 1 tablet before bedtime. Do not crush, chew, or split.. Active escitalopram 20 mg oral tablet (20 sources) Serotonin Reuptake Inhibitor Start: take 1 tablet by mouth once daily Start: 05-02-2023 take 1 tablet by christopher th in the morning escitalopram (Lexapro) 10 MG tablet Take 1 tablet by mouth in the morning. 05/02/2023 Active Start: 05-02-2023 take 1 tablet by mouth once es citalopram oxalate (LEXAPRO) 10 mg tablet Take 1 tablet by mouth every afternoon. 0 05/02/2023 Active Start: 03-29-2023 End: 05-14-2024 take 2 tablets by mouth once daily Escitalopram Oxalate (Lexapro) 5 mg Tablet Discontinued 10 MG PO Daily March 29, 2023 12:00am May 14, 2024 3:08pm Start: 03-29-2023 take 1 tablet by christopher th once daily Escitalopram Oxalate (Lexapro) 5 mg Tablet Active 5 MG PO Daily March 29, 2023 12:00am Comment on above: Take 1 tablet by christopher th every afternoon. ferrous sulfate 325 mg oral tablet (20 sources) Start: 05-14-20 take 1 tablet by mouth once daily fluconazole 100 mg oral tablet (5 sources) Azole Antifungal Start: 08-11-19 take 1 tablet by mouth once daily fluconazole (DIFLUCAN) 100 MG tablet Take 100 mg by mouth daily. for 10 days 0 08/10/2022 Active fluocinonide 0.5 mg/ml topical solution (6 sources) Corticosteroid Start: 01-18-20 fluocinonide (Lidex) 0.05 % external solution Apply 1 application topically Daily 01/18/2024 Active furosemide 40 mg oral tablet (19 sources) Loop Diuretic Start: 11-30-19 take 1 tablet by mouth twice daily Start: 10-16-2024 End: 11-21-2025 take 1 tablet by mouth once daily furosemide (Lasix) 40 MG tablet Indications: Bilateral lower extremity edema Take 1 tablet (40 mg) by mouth Daily 11/28/2024 12/13/2024 Discontinued (Therapy completed) Start: 10-10-2024 take 1 tablet by christopher th once daily furosemide (Lasix) 20 MG tablet Indications: Lower extremity edema , Bilateral leg edema Take 1 tablet (20 mg) by mouth Daily for 5 days 5 tablet 10/10/2024 Active hydroCHLOROthiazide 12.5 mg / losartan potassium 100 mg oral tablet (11 sources) Thiazide Diuretic, Angiotensin 2 Receptor Shorty take 1 tablet by mouth once daily losartan-hydroCHLOROthiazide (Hyzaar) 100-12.5 MG tablet Take 1 tablet by mouth Daily Active ketoconazole 20 mg/ml medicated shampoo (6 sources) Azole Antifungal Star t: 12-29 24 ketoconazole (NIZOral) 2 % shampoo Apply 1 application topically 2 (two) times a week 01/18/2024 Active L.acid,gas,rg,rham-B.an i-cran ([facility] [employer] Women's) (12 sources) Star t: 04-29 24 L.acid,gas,rg,rham-B.ani-cr an ([facility] Pro[employer] Women's) Active PO May 14, 2024 1:00am Complies with drug therapy Start: 05-14-2024 Start: 05-14-2024 L.acid,gas,rg ,rham-B.ani-cran ([facility] [employer] Women's) Active PO May 14, 2024 1:00am Start: 05-14-2024 L.acid,gas,rg ,rham-B.ani-cran ([facility] [employer] Women's) Active PO May 14, 2024 12:00am levothyroxine sodium 0.125 mg oral tablet (20 sources) l-Thyroxine Start: 08-14-2024 End: 08-09-2025 take 1 tablet by mouth once daily levothyroxine (Synthroid, Levoxyl) 125 MCG tablet Indications: Postoperative hypothyroidism Take 1 tablet (125 mcg) by mouth Daily 90 tablet 3 08/14/2024 08/09/2025 Active Start: 05-14-2024 take 1 capsule by mo uth once daily Start: 11-26-2021 take 1 tablet by christopher th before mealtime levothyroxine (Synthroid, Levoxyl) 112 MCG [...] DO Start : 26-Nov-2021 Active Start: 11-22-2018 End: 05-14-2024 Levothyroxine 137 mcg tablet Discontinued 112 MCG PO Daily November 22, 2018 12:00am May 14, 2024 3:09pm Start: 11-22-2018 take 112 ug by mouth [...] empty stomach linaclotide 0.145 mg oral capsule (10 sources) Guanylate Cyclase-C Agonist Start: 06-15-2022 Linzess 145 MCG 1 capsule at least 30 minutes before the first meal of the day on an empty stomach Orally Once a day for 30 day(s) May, Active End: 01-06-2024 take 1 capsule by mouth before mealtime linaCLOtide (Linzess) 145 MCG capsule Take 145 mcg by mouth in the morning. Take before meals. 01/06/2024 Discontinued liothyronine sodium 0.005 mg oral tablet (20 sources) l-Triiodothyronine Start: 05-08-2024 End: 11-04-2024 take 1 tablet by mouth once daily liothyronine (Cytomel) 5 MCG tablet Indications: Acquired hypothyroidism Take 1 tablet (5 mcg) by mouth Daily 90 tablet 1 05/08/2024 Active Start: 09-20-2022 End: 05-14-2024 take 10 mg by mouth once daily Liothyronine 5 mcg Tabl et Discontinued 10 MCG PO Daily September 20, 2022 12:00am May 14, 2024 3:12pm takes 10mg daily Start: 09-20-2022 take 10 mg by mouth once daily Liothyronine Active 10 MCG PO Daily September 20, 2022 12:00am takes 10mg daily Start: 11-26-2021 take 1 tablet by christopher th twice daily liothyronine (CYTOMEL) 5 MCG tablet Take 5 mcg by mouth 2 times daily. 0 06/08/2022 Active take 1 tablet by christopher th every twenty-four hours Liothyronine Sodium 50 MCG 1 tablet on an empty stomach Orally Once a day Active take 1 tablet by christopher th every twenty-four hours Liothyronine Sodium 50 MCG 1 tablet on an empty stomach Orally Once a day Active Comment on above: Take 5 mcg by mouth once daily. lubiprostone 0.024 mg oral capsule (20 sources) Chloride Channel Activator Start: take 1 capsule by mouth once daily as needed Lubiprostone 24 mcg capsule Active 24 MCG PO Daily as needed May 14, 2024 3:10pm Start: 05-14-2024 take 1 capsule by mo uth once daily as needed Lubiprostone 24 mcg capsule Active 24 MCG PO Daily as needed May 14, 2024 2:10pm Start: 06-15-2023 take 1 capsule by mo uth twice daily at mealtime Lubiprostone 8 MCG 1 capsule with food and water Orally Twice a day for 30 days May, Active Start: 09-20-2022 End: 05-14-2024 take 1 capsule by mouth once daily as needed Start: 09-20-2022 End: 05-14-2024 take 1 capsule by mouth once daily Lubiprostone 24 mcg Capsule Discontinued 24 MCG PO Daily September 20, 2022 12:00am May 14, 2024 3:12pm Start: 09-20-2022 End: 05-14-2024 take 1 capsule by mouth once daily Lubiprostone 24 mcg Capsule Discontinued 24 MCG PO Daily September 19, 2022 11:00pm May 14, 2024 2:12pm Start: 09-20-2022 take 24 ug by mouth [...] days Aug, Active take 1 capsule by [facility] once daily at mealtime Amitiza 24 MCG 1 capsule with food and water Orally once a day Active Comment on above: Take 24 mcg by mouth twice daily with meals. Magnesium (20 sources) Start: 07-18-2018 take 2 tablets by mouth twice daily Magnesium 200 mg Tablet Active 400 MG PO Twice daily July 18, 2018 1:00am Complies with drug therapy Start: 07-18-2018 take 2 tablets by [facility] twice daily Start: 07-18-2018 take 2 tablets by [facility] twice daily Magnesium 200 mg Tablet Active 400 MG PO Twice daily July 18, 2018 1:00am Start: 07-18-2018 take 2 tablets by [facility] twice daily Magnesium 200 mg Tablet Active 400 MG PO Twice daily July [...] oral tablet (20 sources) Start: 07-18-2018 take 1 tablet by [facility] once daily at bedtime Melatonin 10 MG as directed Orally Active Comment on above: Take by mouth. metFORMIN hydrochloride 500 mg oral tablet (6 sources) Biguanide take 1 tablet by mouth in the morning metFORMIN (Glucophage) 500 MG tablet Take 1 tablet by mouth in the morning and 1 tablet in the evening. Take with meals. Active metroNIDAZOLE 0.0075 mg/mg topical gel (20 sources) Nitroimidazole Antimicrobial Start: 11-30-19 Start: 10-09-2024 End: 10-09-2025 metroNIDAZOLE (Metrogel) 0.7 5 % gel Indications: Rosacea Apply twice daily to rosacea for 8 weeks. 45 g 10/09/2024 10/09/2025 Active metroNIDAZOLE (M etrogel) 1 % gel Apply topically Active Comment on above: Apply to affected ar ea. Multi For Her (8 sources) Multi For Her as directed Orally Active Multiple Vitamin (Multi Vitamin Daily) tablet (20 sources) Multiple Vitamin (Multi Vitamin Daily) tablet Take by mouth Active Multiple Vitamin (Multi Vitamin Daily) TABS (5 sources) Multiple Vitamin (Multi Vitamin Daily) TABS Take by mouth. 0 Active Multivitamin (Multiple Vitamins) Tablet (20 sources) Start: take 1 tablet by mouth once daily Multivitamin (Multiple Vitamins) Tablet Active 1 TAB PO Daily July 18, 2018 1:00am Complies with drug therapy Start: 07-18-2018 take 1 tablet by christopher th once daily Start: 07-18-2018 take 1 tablet by christopher th once daily Multivitamin (Multiple Vitamins) Tablet Active 1 TAB PO Daily July 18, 2018 1:00am Start: 07-18-2018 take 1 tablet by christopher th once daily Multivitamin (Multiple Vitamins) Tablet Active 1 TAB PO Daily July 18, 2018 12:00am Nystatin (16 sources) Polyene Antifungal Start: 11-29-2024 Start: 11-29-2024 nystatin Activ e TOPICAL November 29, 2024 12:00am Complies with drug therapy Start: 10-16-2024 nystatin (Myco statin) ointment Indications: Cutaneous Candidiasis Apply thin film BID prn irritation 30 g 1 10/16/2024 Active polyethylene glycol 3350 89840 mg powder for oral solution (5 sources) Osmotic Laxative Start: 09-01-2022 take 17 g by mouth once daily Polyethylene Glycol 3350 17 GM/SCOOP 17gm Orally Once a day for 30 days please dispense largest quantity Aug, Active Potassium Chloride (18 sources) Start: 11-29-2024 Start: 11-29-2024 potassium chlo ride Active PO November 29, 2024 12:00am Complies with drug therapy Start: 11-28-2024 End: 01-27-2025 take 1 tablet by mouth once daily potassium chloride CR (Klor-Con M10) 10 MEQ ER tablet Indications: Bilateral lower extremity edema Take 1 tablet (10 mEq) by mouth Daily Do not crush or chew. 11/28/2024 12/13/2024 Discontinued (Therapy completed) Start: 11-21-2024 End: 11-21-2025 potassium chloride CR (Klor- Con M10) 10 MEQ ER tablet Indications: Bilateral lower extremity edema Take 2 tablets (20 mEq) by mouth Daily Do not crush or chew. 60 tablet 11/21/2024 11/21/2025 Active Start: 10-16-2024 End: 11-21-2024 take 1 tablet by mouth once daily potassium chloride CR (Klor-Con M10) 10 MEQ ER tablet Indications: Lower extremity edema Take 1 tablet (10 mEq) by mouth Daily Do not crush or chew. 30 tablet 10/16/2024 11/21/2024 Discontinued (Reorder) predniSONE 20 mg oral tablet (5 sources) Start: 03-07-2024 predniSONE (De ltasone) 20 MG tablet Indications: Bursitis of other [...] probiotic Active Probiotic Product (PRO-BIOTIC BLEND PO) (20 sources) Probiotic Produc t (PRO-BIOTIC BLEND PO) Take by mouth Active propranolol hydrochloride 20 mg oral tablet (20 sources) beta-Adrenergic Shorty Start: 05-03-2023 End: 01-24-2024 take 1 tablet by mouth twice daily take 1 tablet by christopher th every twenty-four hours Propranolol HCl 20 MG 1 tablet Orally Once a day Active Comment on above: TAKE 1 TABLET BY CHRISTOPHER TH 2 TIMES A DAY NEEDED FOR ANXIETY saccharomyces boulardii 250 mg oral capsule (12 sources) take 1 capsule by mouth once daily in the morning saccharomyces boulardii (Florastor) 250 MG capsule Take 250 mg by mouth Daily in the Morning Active Semaglutide,0.25 or 0.5MG/DOS, (Ozempic, 0.25 or 0.5 MG/DOSE,) 2 MG/3ML solution pen-injector (12 sources) Start: 01-24-20 inject 0.25 mg by [...] Semaglutide-Weight Management (Wegovy) 0.25 MG/0.5ML solution auto-injector (10 sources) Start: 01-31-2024 inject 0.25 mg by subcutaneous injection every week Semaglutide-Weight Management (Wegovy) 0.25 MG/0.5ML solution auto-injector Indications: BMI 40.0-44.9, adult (CMS/HCC) Inject 0.25 mg under the skin 1 (one) time per week 0.5 mL 3 01/31/2024 Active temazepam 30 mg oral capsule (20 sources) Benzodiazepine Start: 11-29-2024 take 1 capsule by mouth once daily for sleep Start: 05-25-2022 take 1 capsule by [facility] once daily at bedtime as needed for sleep temazepam (RESTORIL) 30 MG capsule TAKE 1 CAPSULE BY MOUTH ONCE A DAY (AT BEDTIME) NEEDED FOR SLEEP 30 DAY SUPPLY 0 07/27/2022 Active Start: 10-21-2017 End: 09-20-2022 take 2 capsules by mouth once daily at bedtime as needed Temazepam (Restoril) 15 mg Capsule Discontinued 30 MG PO Daily at bedtime as needed for Insomnia October 21, 2017 12:00am September 20, 2022 7:24pm End: 01-06-2024 temazepam (Restoril) 15 MG c apsule 1 (one) time each day at the same time 01/06/2024 Discontinued Temazepam 7.5 MG TAKE 3 CAPSULES BY MOUTH AT BEDTIME NEEDED FOR SLEEP FOR 1 WEEK, 2 CAPS AT BEDTIME FOR 1 WEEK, 1 CAP AT BEDTIME FOR 1 WEEK, 1 CAP AT BEDT Oral for 28 Days Not-Taking/PRN Comment on above: TAKE 1 CAPSULE BY [facility] ONCE A DAY (AT BEDTIME) NEEDED FOR SLEEP 30 DAY SUPPLY terconazole 4 mg/ml vaginal cream (1 source) Azole Antifungal Start: 10-16-2024 End: 10-23-2024 terconazole (Terazol 7) 0.4 % vaginal cream Indications: Vulvovaginal Candidiasis Insert 1 applicator into the vagina at bedtime for 7 days 45 g 2 10/16/2024 10/23/2024 Active 1 ml triamcinolone acetonide 40 mg/ml [...] source) Start: 05-12-2022 take 1 tablet by [facility] once daily Trulance 3 MG 1 tablet Orally Once a day for 90 days Apr, Active Turmeric extract (20 sources) Start: 05-14-2024 turmeric Activ e PO May 14, 2024 1:00am Complies with drug therapy Start: 05-14-2024 Start: 05-14-2024 turmeric Activ e PO May 14, 2024 1:00am Start: 05-14-2024 turmeric Activ e PO May 14, 2024 12:00am Turmeric (QC STU PAULIE COMPLEX PO) Take by mouth Active Turmeric Active Vitamin B Complex (3 sources) Start: 11-29-2024 Start: 11-29-2024 vitamin B comp marcus Active PO November 29, 2024 12:00am Complies with drug therapy Completed/Discontinued Medications Medication Drug Class(es) Dates Sig (Normalized) Sig (Original) acetaminophen 325 mg / HYDROcodone bitartrate 5 mg oral tablet (20 sources) Opioid Agonist Start: 03-29-2023 End: 05-14-2024 take 1 tablet by mouth twice daily as needed for pain Hydrocodone-Acetami nophen 5-325 mg Tablet Discontinued 1 TAB PO Twice daily as needed for Pain March 29, 2023 12:00am May 14, 2024 3:08pm [place] Active Comment on above: TAKE 1 TABLET BY CHRISTOPHER TH 2 TIMES A DAY NEEDED FOR PAIN acetaminophen 325 mg / oxyCODONE hydrochloride 5 mg oral tablet (18 sources) Opioid Agonist Start: End: take 1 tablet by mouth three times daily as needed for pain Oxycodone-Acetaminoph en (Percocet) 5-325 mg tablet Discontinued 1 TAB PO Three times daily as needed for pain 7 2 September 20, 2023 December 05, 2023 11:42am [id number] 200 actuat albuterol 0.09 mg/actuat metered dose inhaler (10 sources) beta2-Adrenergic Agonist Start: End: Albuterol Sulfate 90 mcg/actuation HFA aerosol inhaler Discontinued 1 INH INHALATION Every 4 hours as needed for shortness of breath or wheezing 6.7 December 05, 2023 12:00am May 14, 2024 3:07pm Start: 12-05-2023 Albuterol Sulf ate Active 1 INH INHALATION Every 4 hours 6.7 December 05, 2023 12:00am Start: 04-28-2022 take 2 puff(s) by in halation every four hours as needed Albuterol Sulfate HFA 108 (90 Base) MCG/ACT 2 puffs as needed Inhalation every 4 hrs Mar, Active Albuterol Sulfate 90 mcg/actuation HFA aerosol inhaler (6 sources) Start: 12-05-2023 End: 05-14-2024 Albuterol Sulfate 90 mcg/actuation HFA aerosol inhaler Discontinued 1 INH INHALATION Every 4 hours as needed for shortness of breath or wheezing 6.7 December 05, 2023 12:00am May 14, 2024 3:07pm Start: 12-05-2023 End: 05-14-2024 Albuterol Sulfate 90 mcg/act uation HFA aerosol inhaler Discontinued 1 INH INHALATION Every 4 hours as needed for shortness of breath or wheezing 6.7 December 04, 2023 11:00pm May 14, 2024 2:07pm ALPRAZolam 0.5 mg oral tablet (20 sources) Benzodiazepine Start: 05-03-2022 End: 03-29-2023 take 1 tablet by mouth once as needed Alprazolam 0.5 mg tablet Discontinued 0.5 MG PO As Directed as needed for Anxiety September 20, 2022 12:00am March 29, 2023 8:34am stated that she takes as needed, maybe once every couple of days. Start: 07-18-2018 End: 09-20-2022 take 0.5 mg by mouth once daily as needed for anxiety Alprazolam 1 mg tablet Discontinued 0.5 MG PO Daily as needed for Anxiety July 18, 2018 1:00am September 20, 2022 7:22pm Start: 07-18-2018 End: 09-20-2022 take 0.5 mg by mouth once daily Alprazolam Discontinue d 0.5 MG PO Daily July 18, 2018 1:00am September 20, 2022 7:22pm Start: 07-18-2018 End: 01-06-2024 take 1 mg by mouth once daily Alprazolam Active 1 MG P O Daily July 18, 2018 1:00am Xanax prn Not-Ta salomon/PRN Xanax prn Not-Ta salomon Xanax prn Active Xanax Active Comment on above: Take 1 mg by mouth a t bedtime as needed. amitriptyline hydrochloride 25 mg oral tablet (20 sources) Tricyclic Antidepressant Start: 04-11-20 End: 09-21-19 take 3 tablets by mouth at bedtime Amitriptyline 25 mg Tablet Discontinued 75 MG PO Bedtime April 11, 2018 1:00am September 20, 2022 7:23pm Start: 04-11-2018 End: 09-20-2022 take 75 mg by mouth at bedtime Amitriptyline Discontin ued 75 MG PO Bedtime April 11, 2018 1:00September 20, 2022 7:23pm End: 01-06-2024 take 1 tablet by mouth at bedtime amitriptyline (Elavil) 25 MG tablet Take 25 mg by mouth at bedtime 01/06/2024 Discontinued take 1 tablet by christopher th every twenty-four hours Amitriptyline HCl 75 MG 1 tablet at bedtime Orally Once a day Active Comment on above: Take 25 mg by mouth daily at bedtime. amoxicillin 875 mg / clavulanate 125 mg oral tablet (16 sources) Penicillin-class Antibacterial Start: 12-05-19 End: 05-14-20 take 1 tablet by mouth twice daily Amoxicillin-Pot Clavulanate 875-125 mg tablet Discontinued 1 TAB PO Twice daily 18 03December 05, 2023 12:00am May 14, 2024 3:08pm ascorbic acid 1000 mg oral tablet (20 sources) Vitamin C Start: 07-18-19 End: 09-21-19 take 1 tablet by mouth once daily in the morning Ascorbic Acid (Vitamin C) (Vitamin C) 1,000 mg Tablet Discontinued 1000 MG PO Every morning July 18, 2018 1:00am September 20, 2022 7:23pm aspirin 81 mg chewable tablet (20 sources) Platelet Aggregation Inhibitor, Nonsteroidal Anti-inflammatory Drug Start: 03-29-20 End: 12-05-19 take 1 tablet by mouth once daily Aspirin 81 mg Tablet,Chewable Discontinued 81 MG PO Daily March 29, 2023 12:00am December 05, 2023 11:41am B Complex-Folic Acid 0.4 mg tab (1 source) B Complex-Folic Acid 0.4 mg tab Take by mouth. 0 Active Comment on above: Take by mouth. baclofen 10 mg oral tablet (20 sources) gamma-Aminobutyric Acid-ergic Agonist Start: 09-21-19 End: 07-22-19 take 1 tablet by mouth once daily Baclofen 10 mg tablet Discontinued 10 MG PO Daily September 20, 2022 12:00am July 22, 2023 11:38am Start: 09-23-2021 take 1 tablet by christopher th twice daily baclofen (LIORESAL) 10 MG tablet TAKE 1 TABLET (10 MG) BY MOUTH TWICE A DAY 0 07/22/2022 Active Start: 09-23-2021 End: 01-24-2024 take 1 tablet by mouth once daily at bedtime Baclofen 20 MG Oral Tablet TAKE 1 TABLET BY MOUTH EVERYDAY AT BEDTIME Quantity: 90 Refills: 0 Ordered: 23-Sep-2021 DO Start : 23-Sep-2021 Active Baclofen Not-Eb ing/PRN Baclofen Active benzonatate 200 mg oral capsule (13 sources) Non-narcotic Antitussive Start: 05-14-2024 End: 11-29-2024 take 1 capsule by mouth three times daily as needed for cough Benzonatate 200 mg capsule Discontinued 200 MG PO Three times daily as needed for cough May 14, 2024 1:00am November 29, 2024 9:52am Start: 04-28-2022 take 1 capsule by mo [facility] every eight hours Benzonatate 100 MG 1 capsule as needed Orally Three times a day for 10 days Mar, Active biotin 10 mg oral capsule (20 sources) Start: 07-18-2018 End: 09-20-2022 take 1 capsule by mouth once daily Biotin 10,000 mcg Capsule Discontinued 03170 MCG PO Daily July 18, 2018 1:00am September 20, 2022 7:23pm 24 hr buPROPion hydrochloride 300 mg extended release oral tablet (20 sources) Aminoketone Start: 10-21-2017 End: 09-20-2022 take 1 tablet by mouth once daily in the morning Bupropion Hcl 300 mg Tablet Extended Release 24 Hr Discontinued 300 MG PO Every morning October 21, 2017 12:00am September 20, 2022 7:23pm End: 01-06-2024 take 1 tablet by mouth every twenty-four hours in the morning buPROPion XL (Wellbutrin XL) 300 MG 24 hr tablet Take 300 mg by mouth in the morning. 01/06/2024 Discontinued Comment on above: Take 300 mg by mouth once daily. busPIRone hydrochloride 15 mg oral tablet (5 sources) End: take 1 tablet by mouth in the morning, then take 1 tablet by mouth in the evening, then take 1 tablet by mouth at bedtime busPIRone (Buspar) 15 MG tablet Take 15 mg by mouth in the morning and 15 mg in the evening and 15 mg before bedtime. 01/06/2024 Discontinued take 1 tablet by [facility] every twelve hours busPIRone HCl 5 MG 1 tablet Orally Twice a day Active Calcium Carbonate (5 sources) Oscal 500/200 D- 3 TABS TAKE 1 TABLET DAILY DIRECTED. Quantity: 0 Refills: 0 Ordered: 13-Oct-2022 DO Active calcium carbonate 1250 mg / cholecalciferol 200 unt oral tablet (11 sources) Vitamin D Start: 9 End: 3 take 1 tablet by mouth twice daily Calcium Carbonate-Vitamin D3 (Os-Nirmal 500 + D3) 500 mg(1,250mg) -200 unit tablet Discontinued 1 TAB PO Twice daily July 18, 2018 1:00am September 20, 2022 7:23pm Calcium Carbonate / vitamin D3 (1 source) CALCIUM CARBONATE/VITAMIN D3 (CALCIUM + D ORAL) Take by mouth. 0 Active Comment on above: Take by mouth. Calcium Carbonate-Vitamin D3 (Os-Nirmal 500 + D3) 500 mg(1,250mg) -200 unit tablet (20 sources) Start: 9 End: 3 take 1 tablet by mouth twice daily [...] daily. cloNIDine hydrochloride 0.1 mg oral tablet (20 sources) Central alpha-2 Adrenergic Agonist Start: 023 End: 023 take 1 tablet by mouth once daily as needed Clonidine Hcl 0.1 mg tablet Discontinued 0.1 MG PO Daily as needed for hypertensive emergency December 20, 2022 4:03pm March 29, 2023 8:37am CYANOCOBALAMIN/COBAMAMID E (B12 SUBLINGUAL) (1 source) CYANOCOBALAMIN/C OBAMAMI DE (B12 SUBLINGUAL) Dissolve under the tongue. 0 Active Comment on above: Dissolve under the t ongue. 24 hr dilTIAZem hydrochloride 240 mg extended release oral capsule (20 sources) Calcium Channel Shorty Start: 023 End: take 1 capsule by mouth every twenty-four hours in the morning dilTIAZem CD (Cardizem CD) 240 MG 24 hr capsule Take 1 capsule by mouth in the morning. 04/25/2023 01/24/2024 Discontinued Start: 03-29-2023 End: 12-13-2024 take 1 capsule by mouth once daily, then take 1 capsule by mouth every twenty-four hours dilTIAZem CD (Cardizem CD) 240 MG 24 hr capsule Take 240 mg by mouth Daily 09/20/2024 12/13/2024 Discontinued (Therapy completed) dilTIAZem HCl 24 0mg Active Comment on above: Take 1 capsule by [facility] every afternoon. doxycycline hyclate 100 mg oral capsule (16 sources) Tetracycline-class Drug Start: 4 End: take 1 capsule by mouth twice daily at mealtime Doxycycline Hyclate 100 mg capsule Discontinued 100 MG PO Twice daily 14 May 14, 2024 1:00am November 29, 2024 9:52am with food Start: 10-16-2022 take 1 capsule by [facility] every twelve hours Doxycycline Hyclate 100 MG 1 capsule Orally Twice a day for 10 day(s) September, Not-Taking/PRN estrogens, conjugated (chcf) 0.3 mg / medroxyPROGESTERone acetate 1.5 mg oral tablet (1 source) Progestin, Estrogen take 1 tablet by mouth once daily Conj Estrog-Medroxyprogest Tyrel 0.3-1.5 mg per tablet Take 1 tablet by mouth once daily. 0 Active Comment on above: Take 1 tablet by [facility] once daily. FE FUMARATE/CA CARB/VITAMIN D3 ([id number] FUMARATE ORAL) (1 source) FE FUMARATE/CA CARB/VITAMIN D3 ([id number] FUMARATE ORAL) Take by mouth. 0 Active Comment on above: Take by mouth. FOLIC ACID, BULK, MISC (1 source) FOLIC ACID, BULK , MISC 12 hr guaiFENesin 600 mg extended release oral tablet (16 sources) Start: 2023 take 600 mg by mouth twice daily Guaifenesin Active 600 MG PO Twice daily December 05, 2023 12:00am Start: 12-05-2023 End: 11-29-2024 take 1 tablet by mouth twice daily Guaifenesin 600 mg tablet extended release 12hr Discontinued 600 MG PO Twice daily December 05, 2023 12:00am November 29, 2024 9:52am ibuprofen 800 mg oral tablet (20 sources) Nonsteroidal Anti-inflammatory Drug Start: 12-15-2018 End: 09-20-2022 take 1 tablet by mouth every eight hours as needed for pain Ibuprofen 800 mg tablet Discontinued 800 MG PO Q8H as needed for pain December 15, 2018 12:00am September 20, 2022 7:23pm lactobacillus acidophilus [id number] unt / pectin 10 mg oral capsule (1 source) acidophilus-pect i n, citrus (ACIDOPHILUS PROBIOTIC) 100 million-10 cell-mg cap Take by mouth. 0 Active Comment on above: Take by mouth. magnesium oxide 400 mg oral tablet (20 sources) Start: 06-04-2022 take 1 tablet by [...] Anti-inflammatory Drug Start: 9 End: 9 take 1 tablet by mouth once daily in the morning Meloxicam 15 mg tablet Discontinued 15 MG PO Every morning July 18, 2018 1:00am August 01, 2018 3:16pm metaxalone 800 mg oral tablet (3 sources) End: metaxalone (Skelaxin) 800 MG tablet Take 800 mg by mouth in the morning and 800 mg at noon and 800 mg in the evening. 01/06/2024 Discontinued Comment on above: Take 800 mg by mouth three times daily. Methadone (1 source) Opioid Agonist METHADONE HCL (METHADONE ORAL) Take by mouth. 0 Active Comment on above: Take by mouth. methIMAzole 10 mg oral tablet (20 sources) Thyroid Hormone Synthesis Inhibitor Start: 9 End: 9 take 5 mg by mouth once Methimazole 10 mg tablet Discontinued 5 MG PO every Tuesday, , Tuesday, and Wednesday July 18, 2018 1:00am August 01, 2018 3:16pm Start: 07-18-2018 End: 08-01-2018 take 5 mg by mouth once Methimazole Discontinued 5 M G PO every Tuesday, , Tuesday, and Wednesday July 18, 2018 1:00am August 01, 2018 3:16pm Start: 10-21-2017 End: 08-01-2018 Methimazole (Tapazole) 5 mg Tablet Discontinued 10 MG PO every Tuesday, Tuesday, and Saturday October 21, 2017 12:00am August 01, 2018 3:16pm methylPREDNISolone 4 mg oral tablet (20 sources) Corticosteroid Start: 12-05-2023 End: 10-25-2024 take 1 tablet by mouth once Methylprednisolone (Medrol (Jeffery)) 4 mg tablets,dose pack Discontinued 0 PO per package directions May 14, 2024 1:00am October 25, 2024 8:11am PO PER PKG DIR for 6 days metoprolol tartrate 25 mg oral tablet (20 sources) beta-Adrenergic Shorty Start: 09-20-2022 End: 03-29-2023 take 1 tablet by mouth once daily Metoprolol Tartrate 25 mg tablet Discontinued 25 MG PO Daily September 20, 2022 12:00am March 29, 2023 8:37am Start: 06-04-2022 metoprolol (TO PROL-XL) 25 mg XL tablet Take by mouth. 0 06/04/2022 Active End: 01-24-2024 take 1 tablet by mouth every twenty-four hours in the morning metoprolol succinate XL (Toprol-XL) 50 MG 24 hr tablet Take 50 mg by mouth in the morning. 01/24/2024 Discontinued take 1 tablet by christopher once daily Metoprolol Succinate ER 50 MG Oral Tablet Extended Release 24 Hour TAKE 1 TABLET BY MOUTH EVERY DAY Quantity: 90 Refills: 3 Ordered: 08-Dec-2022 Lavonne PELAYO, Phillip Active increase minocycline 50 mg oral capsule (2 sources) Tetracycline-class Drug Start: 09-18-2024 End: 12-13-2024 take 1 capsule by mouth once daily at mealtime minocycline 50 MG capsule TAKE 1 CAPSULE BY MOUTH EVERY DAY WITH FOOD 09/18/2024 12/13/2024 Discontinued (Therapy completed) Multi Vitamin Daily Oral Tablet (1 source) take 1 tablet by mouth once daily Multi Vitamin Daily Oral Tablet TAKE 1 TABLET DAILY. Quantity: 0 Refills: 0 Ordered: 28-Jul-2022 DO Active Multi Vitamin Daily TABS (5 sources) Multi Vitamin Daily TABS TAKE 1 TABLET DAILY. Quantity: 0 Refills: 0 Ordered: 28-Jul-2022 DO Active Multivitamin capsule (1 source) take 1 capsule by mouth once daily Multivitamin capsule Take 1 capsule by mouth once daily. 0 Active Comment on above: Take 1 capsule by [facility] once daily. mupirocin 0.02 mg/mg topical ointment (20 sources) RNA Synthetase Inhibitor Antibacterial Start: 12-02-2018 End: 12-15-2018 Mupirocin 2 % ointment Discontinued 1 APPLIC TOPICAL Twice daily 15 December 02, 2018 12:00am December 15, 2018 5:08pm naproxen 500 mg oral tablet (20 sources) Nonsteroidal Anti-inflammatory Drug Start: 09-20-2023 End: 12-05-2023 take 1 tablet by mouth twice daily Naproxen (Naprosyn) 500 mg tablet Discontinued 500 MG PO Twice daily October 04, 2023 6:31am December 05, 2023 11:42am omeprazole 20 mg delayed release oral capsule (20 sources) Proton Pump Inhibitor Start: 04-11-2018 End: 08-01-2018 take 1 tablet by mouth once daily Omeprazole 20 mg Capsule,Delayed Release(Dr/Ec) Discontinued 1 TAB PO Daily April 11, 2018 1:00am August 01, 2018 3:16pm oseltamivir 75 mg oral capsule (20 sources) Neuraminidase Inhibitor Start: 07-22-2023 End: 09-20-2023 take 1 capsule by mouth every twelve hours Oseltamivir (Tamiflu) 75 mg capsule Discontinued 75 MG PO Q12H 10 July 22, 2023 1:00am September 20, 2023 11:31am plecanatide 3 mg oral tablet (7 sources) Start: 05-12-2022 take 1 tablet by mouth every twenty-four hours Trulance 3 MG 1 tablet Orally Once a day for 90 days Apr, Not-Taking/PRN PROGESTERONE, BULK, MISC (1 source) PROGESTERONE, BULK, MISC sertraline 100 mg oral tablet (3 sources) Serotonin Reuptake Inhibitor End: 01-06-2024 take 1 tablet by mouth in the morning sertraline (Zoloft) 100 MG tablet Take 100 mg by mouth in the morning. 01/06/2024 Discontinued Comment on above: Take 100 mg by mouth once daily. thyroid (chcf) 60 mg oral tablet (1 source) thyroid, pork, (ARMOUR THYROID) 60 mg tab Take by mouth. 0 Active Comment on above: Take by mouth. topiramate 50 mg oral tablet (3 sources) End: 01-24-2024 take 1 tablet by mouth in the morning topiramate 50 MG tablet Take 50 mg by mouth in the morning and 50 mg in the evening. 01/24/2024 Discontinued Comment on above: Take 50 mg by mouth twice daily. traMADol hydrochloride 50 mg oral tablet (20 sources) Opioid Agonist Start: 09-20-2022 End: 03-29-2023 take 100 mg by mouth twice daily Tramadol Discontinued 100 MG PO Twice daily September 20, 2022 12:00am March 29, 2023 8:37am Start: 08-12-2022 End: 03-29-2023 take 2 tablets by mouth twice daily Tramadol 50 mg tablet Discontinued 100 MG PO Twice daily September 20, 2022 12:00am March 29, 2023 8:37am Start: 10-23-2021 take 1 tablet by christopher th twice daily traMADol HCl - 100 MG Oral Tablet TAKE 1 TABLET BY MOUTH TWICE A DAY Quantity: 60 Refills: 0 Ordered: 23-Oct-2021 DO Start : 23-Oct-2021 Active End: 01-06-2024 take 1 tablet by mouth in the morning, then take 1 tablet by mouth every twenty-four hours in the evening traMADol ER (Ultram-ER) 100 MG 24 hr tablet Take 100 mg by mouth in the morning and 100 mg in the evening. 01/06/2024 Discontinued take 1 tablet by christopher th every [...] mouth. zolpidem tartrate 10 mg oral tablet (3 sources) gamma-Aminobutyric Acid-ergic Agonist End: 01-06-2024 zolpidem (Ambien) 10 MG tablet Take by mouth Daily as needed for sleep 01/06/2024 Discontinued Comment on above: Take by mouth at bed time as needed. Problems Active Problems Problem Classification Problem Date Documented Da te Episodic/Chronic Abdominal pain (20 sources) Left upper quadrant pain; Translations: [Left upper quadrant pain] 06-21-2022 Episodic Acute bronchitis (3 sources) Acute bronchitis, unspecified; Translations: [Acute bronchitis] 05-14-2024 Episodic Administrative/social admission (4 sources) Patient encounter status; Translations: [Dietary counseling and surveillance] 02-28-2024 Episodic Anxiety disorders (20 sources) Anxiety; Translations: [Anxiety state, unspecified] Onset: 01-24-2024 Chronic Blindness and vision defects (14 [...] sources) Postoperative hypothyroidism; Translations: [Postprocedural hypothyroidism] Onset: 5 02-28-2024 Chronic Complications of surgical procedures or medical care (20 sources) Wound dehiscence; Translations: [Disruption of external operation (surgical) wound, not elsewhere classified, initial encounter] 12-02-2018 Episodic Conditions associated with dizziness or vertigo (20 sources) Lightheadedness; Translations: [Dizziness and giddiness] 12-20-2022 Episodic Essential hypertension (20 sources) Hypertensive disorder; Translations: [Essential (primary) hypertension] Onset: 4 12-28-2022 Chronic Gastritis and duodenitis (20 sources) Gastritis; Translations: [Unspecified chronic gastritis without bleeding] 10-03-2023 Chronic Gastrointestinal hemorrhage (1 source) Melena Episodic Genitourinary symptoms and ill-defined conditions (20 sources) Mixed urinary incontinence; Translations: [Mixed incontinence] Onset: 4 01-24-2024 Chronic Headache; including migraine (20 sources) Headache; Translations: [Headache] 12-30-2022 Episodic Hypertension with complications and secondary hypertension (20 sources) Hypertensive urgency ; Translations: [Hypertensive urgency] 12-30-2022 Chronic Immunizations and screening for infectious disease (1 source) Other specified abnormal immunological findings in serum; Translations: [Positive WILL (antinuclear antibody)] Onset: Episodic Inflammatory diseases of female pelvic organs (1 source) Acute vaginitis; Translations: [Acute vaginitis] 10-16-2024 Episodic Influenza (20 sources) Influenza; Translations: [Influenza due to unidentified influenza virus with other respiratory manifestations] 07-22-2023 Episodic Menopausal disorders (16 sources) Menopausal syndrome; Translations: [Menopausal and female climacteric states] Onset: 5 08-15-2024 Chronic Mood disorders (20 sources) Depressive disorder; Translations: [Depression] Onset: 4 01-18-2014 Chronic Nervous system congenital anomalies (7 sources) Congenital anomaly of optic nerve; 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, spinal cord, 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 Nonmalignant breast conditions (20 sources) Large breast; Translations: [Hypertrophy of breast] 10-03-2023 Episodic Nonspecific chest pain (20 sources) Chest pain; Translations: [Chest pain, unspecified] 11-05-2022 Episodic Nutritional deficiencies (20 sources) Vitamin D deficiency; Translations: [Unspecified vitamin D deficiency] Onset: 4 01-24-2024 Chronic Open wounds of extremities (20 sources) Cat bite - wound; Translations: [Open bite of unspecified finger without damage to nail, initial encounter] 12-02-2018 Episodic Osteoarthritis (20 sources) Arthritis; Translations: [Osteoarthritis of hip] Onset: 4 01-18-2014 Chronic Other connective tissue disease (7 sources) H/O: arthritis; Translations: [Personal history of arthritis] Episodic Other connective tissue disease (7 sources) H/O: musculoskeletal disease; Translations: [Personal history of other musculoskeletal disorders] Episodic Other connective tissue disease (20 sources) Pain in calf; Translations: [Pain in unspecified lower leg] 01-24-2023 Episodic Other connective tissue disease (11 sources) Disorder of rotator cuff; Translations: [Unspecified rotator cuff tear or rupture of right shoulder, not specified as traumatic] 10-03-2023 Episodic Other connective tissue disease (2 sources) Bursitis of right hip; Translations: [Other bursitis of hip, right hip] 03-07-2024 Episodic Other connective tissue disease (6 sources) Right rotator cuff syndrome; Translations: [Unspecified rotator cuff tear or rupture of right shoulder, not specified as traumatic] 10-03-2023 Episodic Other eye disorders (7 sources) Hypertropia of right eye; Translations: [Hypertropia] Episodic Other eye disorders (20 sources) Pain in eye; Translations: [Ocular pain, unspecified eye] 01-24-2023 Episodic Other gastrointestinal disorders (2 sources) Irritable bowel syndrome; Translations: [Irritable bowel syndrome without diarrhea] 01-18-2014 Chronic Other gastrointestinal disorders (20 sources) Irritable bowel syndrome characterized by constipation; [...] of digestive system] Episodic Other gastrointestinal disorders (20 sources) Constipation; Translations: [Constipation, unspecified] 10-03-2023 Episodic Other gastrointestinal disorders (1 source) Abdominal distension (gaseous) Episodic Other gastrointestinal disorders (1 source) Constipation, unspecified Episodic Other gastrointestinal disorders (17 sources) Abdominal bloating; Translations: [Abdominal distension (gaseous)] 10-03-2023 Episodic Other inflammatory condition of skin (2 sources) Rosacea; Translations: [Rosacea, unspecified] 10-09-2024 Chronic Other lower respiratory disease (20 sources) Dyspnea; Translations: [Shortness of breath] 01-24-2023 Episodic Other lower respiratory disease (4 sources) Dyspnea on exertion; Translations: [Shortness of breath] 10-09-2024 Episodic Other lower respiratory disease (6 sources) Snoring; Translations: [Snoring] 11-21-2024 Episodic Other lower respiratory disease (1 source) Shortness of breath; Translations: [Shortness of breath] Onset: 5 Episodic Other nervous system disorders (7 sources) Benign intracranial hypertension; Translations: [Benign intracranial hypertension] Chronic Other nervous system disorders (1 source) Other chronic pain; Translations: [OTHER CHRONIC PAIN] Onset: 2 Chronic Other non-traumatic joint disorders (20 sources) Shoulder pain; Translations: [Pain in unspecified shoulder] 11-19-2019 Episodic Other non-traumatic joint disorders (18 sources) Shoulder joint pain; Translations: [Pain in right shoulder] 09-20-2023 Episodic Other nutritional; endocrine; and metabolic disorders (9 sources) Body mass index 40+ - severely obese; Translations: [Morbid obesity] 01-24-2024 Chronic Other nutritional; endocrine; and metabolic disorders (1 source) Obesity, unspecified; Translations: [OBESITY UNSPECIFIED] Onset: 2 Chronic Other nutritional; endocrine; and metabolic disorders (20 sources) Hypomagnesemia; Translations: [Hypomagnesemia] 12-20-2022 Chronic Other nutritional; endocrine; and metabolic disorders (4 sources) Severe obesity; Translations: [Class 3 severe obesity without serious comorbidity with body mass index (BMI) of 40.0 to 44.9 in adult, unspecified obesity type (CMS/[facility])] 02-28-2024 Chronic Other nutritional; endocrine; and metabolic disorders (2 sources) Hypoalbuminemia; Translations: [Other disorders of plasma-protein metabolism, not elsewhere classified] 12-06-2024 Chronic Other nutritional; endocrine; and metabolic disorders (2 sources) Hypoproteinemia; Translations: [Other disorders of glycoprotein metabolism] 12-06-2024 Chronic Other nutritional; endocrine; and metabolic disorders (7 sources) History of Graves' disease; Translations: [Personal history of other endocrine, metabolic, and immunity disorders] Episodic Other screening for suspected conditions (not mental disorders or infectious disease) (3 sources) Abnormal results of other endocrine function studies; Translations: [Other specified abnormal findings of blood chemistry] Onset: 4 Episodic Other skin disorders (1 source) Rash and other nonspecific skin eruption Episodic Other upper respiratory infections (10 sources) Acute pharyngitis, unspecified; Translations: [Streptococcal pharyngitis] Episodic Phlebitis; thrombophlebitis and thromboembolism (20 sources) Phlebitis; Translations: [Phlebitis and thrombophlebitis of unspecified site] 12-15-2018 Episodic Pulmonary heart disease (20 sources) Pulmonary hypertension; Translations: [Pulmonary hypertension, unspecified] Onset: 5 11-21-2024 Chronic Residual codes; unclassified (20 sources) Chronic pain; Translations: [Other chronic pain] Onset: 4 01-18-2014 Chronic Residual codes; unclassified (6 sources) Sleep apnea; Translations: [Sleep apnea, unspecified] 11-29-2024 Chronic Residual codes; unclassified (4 sources) Hypoxia; 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] 11-29-2024 Chronic Residual codes; unclassified (2 sources) Obstructive sleep apnea syndrome; Translations: [Obstructive sleep apnea (adult) (pediatric)] 12-13-2024 Chronic Residual codes; unclassified (20 sources) Peripheral edema; Translations: [Edema, unspecified] 11-19-2019 Episodic Residual codes; unclassified (4 sources) Edema of lower extremity; Translations: [Localized edema] 10-09-2024 Episodic Residual codes; unclassified (10 sources) Bilateral lower limb edema; Translations: [Localized edema] 10-09-2024 Episodic Residual codes; unclassified (6 sources) Insomnia; Translations: [Insomnia, unspecified] 11-29-2024 Episodic Residual codes; unclassified (2 sources) Edema, generalized; Translations: [Generalized edema] 12-06-2024 Episodic Residual codes; unclassified (1 source) Localized edema; Translations: [Localized edema] Onset: Episodic Screening and history of mental health and substance abuse codes (14 sources) Ex-smoker; Translations: [Personal history of tobacco use] Episodic Comment on above: quit 01/28/22; Skin and subcutaneous tissue infections (2 sources) Cellulitis of right lower limb; Translations: [Cellulitis of right lower limb] 11-21-2024 Episodic Spondylosis; intervertebral disc disorders; other back problems (20 sources) Solitary sacroiliitis; Translations: [Sacroiliitis, not elsewhere classified] Onset: 2 Chronic Sprains and strains (20 sources) Sprain of knee; Translations: [Sprain of unspecified site of right knee, initial encounter] 10-03-2023 Episodic Thyroid disorders (20 sources) Hypothyroidism; Translations: [Unspecified acquired hypothyroidism] Onset: 4 01-18-2014 Chronic Unclassified (1 source) LOW BACK PAIN, UNSPECIFIED; Translations: [LOW BACK PAIN, UNSPECIFIED] Onset: 2 Past or Other Problems Problem Classification Problem Date Documented Date Episodic/Chronic Deficiency and other anemia (16 sources) Iron deficiency anemia; Translations: [Iron deficiency anemia, unspecified] Onset: 08-04-2024 08-04-2024 Episodic Deficiency and other anemia (1 source) Other iron deficiency anemias; Translations: [Other iron deficiency anemias] Onset: 08-03-2024 Episodic Diabetes mellitus without complication (2 sources) Prediabetes; Translations: [Prediabetes] 01-24-2024 Episodic Genitourinary symptoms and ill-defined conditions (20 sources) Retention of urine; Translations: [Retention of urine, unspecified] Onset: 01-24-2024 01-24-2024 Episodic Malaise and fatigue (1 source) Other fatigue; Translations: [Other fatigue] Onset: 08-03-2024 Episodic Other connective tissue disease (20 sources) Fibromyalgia; Translations: [Fibromyalgia] Onset: 01-24-2024 01-18-2014 Episodic Other connective tissue disease (4 sources) Other muscle spasm; Translations: [OTHER MUSCLE SPASM] Onset: 01-06-2022 Episodic Other connective tissue disease (7 sources) Unspecified rotator cuff tear or rupture of right shoulder, not specified as traumatic; Translations: [Disorders of bursae and tendons in shoulder region, unspecified] Onset: 09-03-2024 10-03-2023 Episodic Other hematologic conditions (20 sources) History of anemia; Translations: [Personal history of diseases of the blood and blood-forming organs and certain disorders involving the immune mechanism] Onset: 01-24-2024 01-24-2024 Episodic Other skin disorders (20 sources) Non-scarring alopecia; Translations: [Nonscarring hair loss, unspecified] Onset: 02-20-2024 02-20-2024 Episodic Residual codes; unclassified (20 sources) History of supracervical hysterectomy; Translations: [Acquired absence of uterus with remaining cervical stump] Onset: 02-20-2024 02-20-2024 Episodic Residual codes; unclassified (1 source) Asymptomatic menopausal state; Translations: [Asymptomatic menopausal state] Onset: 08-03-2024 Episodic Spondylosis; intervertebral disc disorders; other back problems (20 sources) Neck pain; Translations: [Backache] Onset: 12-10-2021 01-18-2014 Episodic Unclassified (2 sources) Cough R05.9 Viral infection (2 sources) COVID-19 Results Test Name Value Interpretation Reference Range Facility A1C with Estimated Average Georgina wise 12-07-2024 Glucose [Mass/Vol] 117 mg/dL Normal [facility] Comment on above: Result Comment: PERF ORMED BY: [facility] [address] [place] [address] PATHOLOGIST [employer] RECORDS CLERK MARIUM AVALOS M.D. Performed By: #### C MP, UA, LIPID, TSH3, CBC, URMACRERAT, LILLIANA, FE and TIBC #### [address] WILL Antinuclear Antibodieson 12-07-2024 Antinuclear Abs, IFA Negative Normal . [facility] Comment on above: Result Comment: Nega tive <1:80 Borderline 1:80 Positive >1:80 ICAP nomenclature: [id number] For more information about Hep-2 cell patterns use ANApatterns.org, the official website for the International Consensus on Antinuclear Antibody (WILL) Patterns (ICAP). Performed at: [facility] [id number] Incinerator Attendant: Ramirez Ca PhD, Phone: [phone] Performed By: #### C MP, UA, LIPID, TSH3, CBC, URMACRERAT, LILLIANA, FE and TIBC #### [place] [address] [place] Alanine aminotransferase [En zymatic activity/volume] in Serum or PlasmaOrdered By: OMID QUAN on 12-07-2024 ALT [Catalytic activity/Vol] 29 U/L Normal 7-52 [facility] Comment on above: Performed By: #### C MP, UA, LIPID, TSH3, CBC, URMACRERAT, LILLIANA, FE and TIBC #### [place] [address] [place] Albumin [Mass/volume] in Ser um or Plasma by Bromocresol green (BCG) dye binding methoOrdered By: OMID QUAN on 12-07-2024 Albumin BCG dye [Mass/Vol] 3.8 g/dL 3.5-5.7 [facility] Alkaline phosphatase [Enzyma tic activity/volume] in Serum or PlasmaOrdered By: OMID QUAN on 12-07-2024 ALP [Catalytic activity/Vol] 56 U/L Normal 34-104 [facility] Comment on above: Performed By: #### C MP, UA, LIPID, TSH3, CBC, URMACRERAT, LILLIANA, FE and TIBC #### [facility] [address] Appearance of UrineOrdered B y: OMID QUAN on 12-07-2024 Appearance (U) Clear Normal Clear [facility] Comment on above: Order Comment: Name Collection Type:: Clean-Voided Midstream Performed By: #### C MP, UA, LIPID, TSH3, CBC, URMACRERAT, LILLIANA, FE and TIBC #### [facility] [address] Aspartate aminotransferase [ Enzymatic activity/volume] in Serum or PlasmaOrdered By: OMID QUAN on 12-07-2024 AST [Catalytic activity/Vol] 20 U/L Normal 13-39 [facility] Comment on above: Performed By: #### C MP, UA, LIPID, TSH3, CBC, URMACRERAT, LILLIANA, FE and TIBC #### [address] Bacteria [Presence] in Urine by AutomatedOrdered By: OMID QUAN on 12-07-2024 Bacteria Auto Ql (U) None seen [HPF] None Seen [facility] Bilirubin Test strip Ql (U)O rdered By: OMID QUAN on 12-07-2024 Bilirubin Ql (U) Negative Negative [facility] Bilirubin.total [Mass/volume ] in Serum or PlasmaOrdered By: OMID QUAN on 12-07-2024 Bilirubin [Mass/Vol] 0.4 mg/dL Normal 0.3-1.0 [facility] Comment on above: Performed By: #### C MP, UA, LIPID, TSH3, CBC, URMACRERAT, LILLIANA, FE and TIBC #### [facility] [address] Blood estimated average gluc ose determination by estimation from glycated hemoglobinOrdered By: OMID QUAN on 12-07-2024 Average glucose Estimated from glycated hemoglobin (Bld) [Mass/Vol] 117 mg/dL [facility] C reactive protein [Mass/vol ume] in Serum or Plasma by High sensitivity methodOrdered By: OMID QUAN on 12-07-2024 CRP High sensitivity method [Mass/Vol] 15.7 mg/L High 0.0-0.9 [facility] Comment on above: Cardiovascular Risk Classification [...] this marker for estimation of CVD risk. CRP High sensitivity method [Mass/Vol]on 12-07-2024 HIGH SENSITIVE CRP 15.7 mg/L High 0.0 - 0.9 mg/L [facility] Comment on above: Cardiovascular Risk Classification (AHA/CDC) hsCRP < 1.0 mg/l [...] this marker for estimation of CVD risk. Interpretation and review of laboratory results Abnormal [facility] Calcium [Mass/volume] in Ser um or PlasmaOrdered By: OMID QUAN on 12-07-2024 Calcium [Mass/Vol] 9.0 mg/dL Normal 8.6-10.3 [facility] Comment on above: Performed By: #### C MP, UA, LIPID, TSH3, CBC, URMACRERAT, LILLIANA, FE and TIBC #### [facility] [address] Carbon dioxide, total [Moles /volume] in Serum or PlasmaOrdered By: OMID QUAN on 12-07-2024 CO2 [Moles/Vol] 31.0 mmol/L Normal 21.0-31.0 [facility] Comment on above: Performed By: #### C MP, UA, LIPID, TSH3, CBC, URMACRERAT, LILLIANA, FE and TIBC #### [facility] [address] Chloride [Moles/volume] in S zakia or PlasmaOrdered By: OMID QUAN on 12-07-2024 Chloride [Moles/Vol] 101 mmol/L Normal 98-107 [facility] Comment on above: Performed By: #### C MP, UA, LIPID, TSH3, CBC, URMACRERAT, LILLIANA, FE and TIBC #### [facility] [address] Color of Urine by AutoOrdere d By: OMID QUAN on 12-07-2024 Color (U) Light-yellow Normal Yellow [facility] Comment on above: Order Comment: Name Collection Type:: Clean-Voided Midstream Performed By: #### C MP, UA, LIPID, TSH3, CBC, URMACRERAT, LILLIANA, FE and TIBC #### [address] Comprehensive Metabolic Pane soniya 12-07-2024 Albumin [Mass/Vol] 3.8 g/dL Normal 3.5-5.7 [facility] Comment on above: Performed By: #### C MP, UA, LIPID, TSH3, CBC, URMACRERAT, LILLIANA, FE and TIBC #### [place] [address] [place] GFR/1.73 sq M.predicted MDRD (S/P/Bld) [Vol rate/Area] mL/min/{1.73_m2} Normal [facility] Comment on above: Performed By: #### C MP, UA, LIPID, TSH3, CBC, URMACRERAT, LILLIANA, FE and TIBC #### [address] Comprehensive metabolic pane soniya 12-07-2024 Albumin [Mass/Vol] 3.8 g/dL 3.5 - 5.7 g/dL [facility] Albumin/Globulin [Mass ratio] 1.4 {ratio} [facility] ALP [Catalytic activity/Vol] 56 U/L 34 - 104 U/L [facility] ALT [Catalytic activity/Vol] 29 U/L 7 - 52 U/L [facility] Anion gap [Moles/Vol] 11.2 mmol/L 6.0 - 15.0 NO [facility] AST [Catalytic activity/Vol] 20 U/L 13 - 39 U/L [facility] Bilirubin [Mass/Vol] 0.4 mg/dL 0.3 - 1 .0 mg/dL [facility] Calcium [Mass/Vol] 9 mg/dL 8.6 - 10. 3 mg/dL [facility] Chloride [Moles/Vol] 101 mmol/L 98 - 10 7 mmol/L [facility] CO2 [Moles/Vol] 31 mmol/L 21.0 - 31.0 mmol/L [facility] Creatinine (U) [Mass/Vol] 0.5 mg/dL Low 0.60 - 1.20 mg/dL [facility] ESTIMATED GFR [facility] Globulin (S) [Mass/Vol] 2.7 g/dL [facility] Glucose [Mass/Vol] 109 mg/dL High 70 - 100 mg/dL [facility] Comment on above: Random Glucose Refer ence Range is dependent on time and content of last meal. Glucose of more than 200 mg/dL in a nonstressed, ambulatory subject supports the diagnosis of Diabetes Mellitus. ADA recommended reference range Interpretation and review of laboratory results Abnormal [facility] Potassium [Moles/Vol] 4.2 mmol/L 3.5 - 5.1 mmol/L [facility] Protein [Mass/Vol] 6.5 g/dL 6.4 - 8.9 g/dL [facility] Sodium [Moles/Vol] 139 mmol/L 136 - 145 mmol/L [facility] Urea nitrogen [Mass/Vol] 12 mg/dL 7 - 25 mg/dL [facility] Creatinine [Mass/volume] in Serum or PlasmaOrdered By: OMID QUAN on 12-07-2024 Creatinine [Mass/Vol] 0.50 mg/dL Low 0.60-1.20 [facility] Comment on above: Performed By: #### C MP, UA, LIPID, TSH3, CBC, URMACRERAT, LILLIANA, FE and TIBC #### [address] Creatinine [Mass/volume] in UrineOrdered By: OMID QUAN on 07-11-2025 Creatinine (U) [Mass/Vol] 75.00 mg/dL [facility] Comment on above: No reference range e stablished Dipstick and Microscopicon 0 12-07-2024 Bacteria,Urine None Seen Normal None Seen [facility] Comment on above: Order Comment: Name Collection Type:: Clean-Voided Midstream Performed By: #### C MP, UA, LIPID, TSH3, CBC, URMACRERAT, LILLIANA, FE and TIBC #### [address] Bilirubin,Urine Negative Normal Negative [facility] Comment on above: Order Comment: Name Collection Type:: Clean-Voided Midstream Performed By: #### C MP, UA, LIPID, TSH3, CBC, URMACRERAT, LILLIANA, FE and TIBC #### [address] Glucose Ql (U) Normal Normal Normal [facility] Comment on above: Order Comment: Name Collection Type:: Clean-Voided Midstream Performed By: #### C MP, UA, LIPID, TSH3, CBC, URMACRERAT, LILLIANA, FE and TIBC #### [address] Hyaline Casts,Urine None Normal 0-[address] [facility] Comment on above: Order Comment: Name Collection Type:: Clean-Voided Midstream Performed By: #### C MP, UA, LIPID, TSH3, CBC, URMACRERAT, LILLIANA, FE and TIBC #### [address] Mucus,Urine Rare Normal [facility] Comment on above: Order Comment: Name Collection Type:: Clean-Voided Midstream Result Comment: PERF ORMED BY: [place] [address] PATHOLOGIST [employer] RECORDS CLERK MARIUM AVALOS M.D. Performed By: #### C MP, UA, LIPID, TSH3, CBC, URMACRERAT, LILLIANA, FE and TIBC #### [address] Nitrite,Urine Negative Normal Negative [facility] Comment on above: Order Comment: Name Collection Type:: Clean-Voided Midstream Performed By: #### C MP, UA, LIPID, TSH3, CBC, URMACRERAT, LILLIANA, FE and TIBC #### [address] Occult Blood,Urine Negative Normal Negative [facility] Comment on above: Order Comment: Name Collection Type:: Clean-Voided Midstream Performed By: #### C MP, UA, LIPID, TSH3, CBC, URMACRERAT, LILLIANA, FE and TIBC #### [address] Protein,Urine Negative Normal Negative [facility] Comment on above: Order Comment: Name Collection Type:: Clean-Voided Midstream Performed By: #### C MP, UA, LIPID, TSH3, CBC, URMACRERAT, LILLIANA, FE and TIBC #### [address] RBC,Urine 1-2 Normal 0-4 [facility] Comment on above: Order Comment: Name Collection Type:: Clean-Voided Midstream Performed By: #### C MP, UA, LIPID, TSH3, CBC, URMACRERAT, LILLIANA, FE and TIBC #### [address] Specificy [place],Urine 1.023 Normal 1.001-1.03 0 [facility] Comment on above: Order Comment: Name Collection Type:: Clean-Voided Midstream Performed By: #### C MP, UA, LIPID, TSH3, CBC, URMACRERAT, LILLIANA, FE and TIBC #### [place] [address] [place] Squamous Epithelial Cell,Urine 1-2 Normal 0-2 [facility] Comment on above: Order Comment: Name Collection Type:: Clean-Voided Midstream Performed By: #### C MP, UA, LIPID, TSH3, CBC, URMACRERAT, LILLIANA, FE and TIBC #### [address] [place] [address] [place] Urobilinogen,Urine Normal Normal Normal [facility] Comment on above: Order Comment: Name Collection Type:: Clean-Voided Midstream Performed By: #### C MP, UA, LIPID, TSH3, CBC, URMACRERAT, LILLIANA, FE and TIBC #### [facility] [address] WBC,Urine 1-2 Normal 0-4 [facility] Comment on above: Order Comment: Name Collection Type:: Clean-Voided Midstream Performed By: #### C MP, UA, LIPID, TSH3, CBC, URMACRERAT, LILLIANA, FE and TIBC #### [facility] [address] ESR (Bld) [Velocity]on 12-07 Interpretation and review of laboratory results Abnormal [facility] Epithelial cells.squamous [# /area] in Urine sediment by Automated countOrdered By: OMID QUAN on 12-07-2024 Epithelial cells.squamous Auto (Urine sed) [#/Area] 1-2 [HPF] 0-2 [facility] Erythrocyte Sedimentation Ra frank 12-07-2024 ESR (Bld) [Velocity] 22 mm/h High 0-19 [facility] Comment on above: Result Comment: PERF ORMED BY: [place] [address] PATHOLOGIST [employer] RECORDS CLERK MARIUM AVALOS M.D. Performed By: #### C MP, UA, LIPID, TSH3, CBC, URMACRERAT, LILLIANA, FE and TIBC #### [facility] [address] Erythrocyte sedimentation ra te by Photometric methodOrdered By: OMID QUAN on 12-07-2024 ESR Photometric method (Bld) [Velocity] 22 mm/hr High 0-19 [facility] Erythrocytes [#/area] in Uri ne sediment by Automated countOrdered By: OMID QUAN on 12-07-2024 RBC Auto (Urine sed) [#/Area] 1-2 [HPF] 0-4 [facility] Free K+L LT Chains, Qn, Son 12-07-2024 Free [place] Light Chains, S 12.3 mg/L Normal 3.3-19.4 [facility] Comment on above: Performed By: #### C MP, UA, LIPID, TSH3, CBC, URMACRERAT, LILLIANA, FE and TIBC #### [address] Free [place] Light Chains, S 14.2 mg/L Normal 5.7-26.3 [facility] Comment on above: Performed By: #### C MP, UA, LIPID, TSH3, CBC, URMACRERAT, LILLIANA, FE and TIBC #### [facility] [address] [place]/Lambda Ratio, S 0.87 Normal 0.26-1.65 [facility] Comment on above: Result Comment: Perf ormed at: CB - [facility] [address] [id number] Incinerator Attendant: Ramirez Ca PhD, Phone: [phone] PERFORMED BY: [place] [address] PATHOLOGIST [employer] RECORDS CLERK MARIUM AVALOS M.D. Performed By: #### C MP, UA, LIPID, TSH3, CBC, URMACRERAT, LILLIANA, FE and TIBC #### [address] Glucose [Mass/volume] in Ser um or PlasmaOrdered By: OMID QUAN on 12-07-2024 Glucose [Mass/Vol] 109 mg/dL High 70-100 [facility] Comment on above: ADA recommended refe rence rangeRandom Glucose Reference Range is dependent on time and content of last meal. Glucose of more than 200 mg/dL in a nonstressed, ambulatory subject supports the diagnosis of Diabetes Mellitus. Result Comment: [place] Glucose Reference Range is dependent on time and content of last meal. Glucose of more than 200 mg/dL in a nonstressed, ambulatory subject supports the diagnosis of Diabetes Mellitus. ADA recommended reference range Performed By: #### C MP, UA, LIPID, TSH3, CBC, URMACRERAT, LILLIANA, FE and TIBC #### [facility] [address] [place] [address] [place] Glucose [Mass/volume] in Uri ne by Test stripOrdered By: OMID QUAN on 12-07-2024 Glucose Test strip (U) [Mass/Vol] Normal mg/dL Normal [facility] Hemoglobin A1c/Hemoglobin.to hiram in BloodOrdered By: OMID QUAN on 12-07-2024 HbA1c (Bld) [Mass fraction] 5.7 % High 4.3-5.6 [facility] Comment on above: Increased risk for d iabetes: 5.7 - 6.4diabetes: >6.4glycemic control for adults with diabetes: <7.0 Result Comment: Incr eased risk for diabetes: 5.7 - 6.4 diabetes: >6.4 glycemic control for adults with diabetes: <7.0 Performed By: #### C MP, UA, LIPID, TSH3, CBC, URMACRERAT, LILLIANA, FE and TIBC #### [facility] [address] Hemoglobin Test strip Ql (U) Ordered By: OMID QUAN on 12-07-2024 Hemoglobin Ql (U) Negative Negative [facility] Hemoglobin a1c with eagon Glucose [Mass/Vol] 117 mg/dL [facility] HbA1c (Bld) [Mass fraction] 5.7 % High 4.3 - 5.6 % [facility] Comment on above: Increased risk for d iabetes: 5.7 - 6.4 diabetes: >6.4 glycemic control for adults with diabetes: <7.0 Interpretation and review of laboratory results Abnormal [facility] High Sensitive CRPon 025 High Sensitive CRP 15.7 mg/L High 0.0-0.9 [facility] Comment on above: [...] for estimation of CVD risk. PERFORMED BY: [place] [address] PATHOLOGIST [employer] RECOR[employer] CLERK MARIUM AVALOS M.D. Performed By: #### C MP, UA, LIPID, TSH3, CBC, URMACRERAT, LILLIANA, FE and TIBC #### [address] Hyaline casts [#/area] in Ur ine sediment by Automated countOrdered By: OMID QUAN on 12-07-2024 Hyaline casts Auto (Urine sed) [#/Area] None [LPF] 0-8 [facility] Ketones [Presence] in Urine by Test stripOrdered By: OMID QUAN on 12-07-2024 Ketones Ql (U) Negative Normal Negative [facility] Comment on above: Order Comment: Name Collection Type:: Clean-Voided Midstream Performed By: #### C MP, UA, LIPID, TSH3, CBC, URMACRERAT, LILLIANA, FE and TIBC #### [address] Leukocyte esterase [Presence ] in Urine by Test stripOrdered By: OMID QUAN on 12-07-2024 Leukocyte esterase Test strip Ql (U) Negative Normal Negative [facility] Comment on above: Order Comment: Name Collection Type:: Clean-Voided Midstream Performed By: #### C MP, UA, LIPID, TSH3, CBC, URMACRERAT, LILLIANA, FE and TIBC #### [place] [address] [place] Leukocytes [#/area] in Urine sediment by Automated countOrdered By: OMID QUAN on 12-07-2024 WBC Auto (Urine sed) [#/Area] 1-2 [HPF] 0-4 [facility] Magnesiumon 12-07-2024 Magnesium [Mass/Vol] 1.9 mg/dL 1.9 - 2 .7 mg/dL [facility] Magnesium [Mass/volume] in S zakia or PlasmaOrdered By: OMID QUAN on 12-07-2024 Magnesium [Mass/Vol] 1.9 mg/dL Normal 1.9-2.7 [facility] Comment on above: Result Comment: PERF ORMED BY: [place] [address] PATHOLOGIST [employer] RECOR[employer] CLERK MARIUM AVALOS M.D. Performed By: #### C MP, UA, LIPID, TSH3, CBC, URMACRERAT, LILLIANA, FE and TIBC #### [address] MicroAlb Creat Ratio,Uon Creatinine, Urine (Random) 75.00 mg/dL Normal [facility] Comment on above: Result Comment: No r eference range established Performed By: #### C MP, UA, LIPID, TSH3, CBC, URMACRERAT, LILLIANA, FE and TIBC #### [address] Microalbumin/Creatini ne Ratio Not performed Normal 0.0-30.0 [facility] Comment on above: Result Comment: PERF ORMED BY: [place] [address] PATHOLOGIST [employer] RECOR[employer] CLERK MARIUM AVALOS M.D. Performed By: #### C MP, UA, LIPID, TSH3, CBC, URMACRERAT, LILLIANA, FE and TIBC #### [address] Microalbumin [Mass/volume] i n UrineOrdered By: OMID QUAN on 12-07-2024 Albumin DL <= 20 mg/L (U) [Mass/Vol] mg/dL Normal 0.0-1.8 [facility] Comment on above: Performed By: #### C MP, UA, LIPID, TSH3, CBC, URMACRERAT, LILLIANA, FE and TIBC #### [address] Microalbumin/Creatinine rati o panel (U)on 12-07-2024 Albumin [Mass/Vol] mg/dL 0.0 - 1.8 mg/dL [facility] Creatinine spec 2 (U) [Mass/Vol] 75 mg/dL [facility] Comment on above: No reference range e stablished MICROALBUMIN/CREATINI NE RATIO Not performed 0.0 - 30.0 mg/g [facility], [facility] Mucus [Presence] in Urine by AutomatedOrdered By: OMID QUAN on 12-07-2024 Mucus Auto Ql (U) Rare [LPF] [facility] Nitrite Test strip Ql (U)Ord ered By: OMID QUAN on 12-07-2024 Nitrite Ql (U) Negative Negative [facility] No Panel Informationon 12-07 [facility] No Panel InformationOrdered By: OMID QUAN on 12-07-2024 Estimated GFR (CKD-EPI) > 60.0 mL/Min [facility] Creatinine Clearance (Chem N/A [facility] Potassium [Moles/volume] in Serum or PlasmaOrdered By: OMID QUAN on 12-07-2024 Potassium [Moles/Vol] 4.2 mmol/L Normal 3.5-5.1 [facility] Comment on above: Performed By: #### C MP, UA, LIPID, TSH3, CBC, URMACRERAT, LILLIANA, FE and TIBC #### [facility] [address] Protein Electrophoresis, Ser umon 12-07-2024 Albumin [Mass/Vol] 3.3 g/dL Normal 2.9-4.4 [facility] Comment on above: Performed By: #### C MP, UA, LIPID, TSH3, CBC, URMACRERAT, LILLIANA, FE and TIBC #### [facility] [address] Albumin/Globulin [Mass ratio] 1.1 {ratio} Normal 0.7-1.7 [facility] Comment on above: Performed By: #### C MP, UA, LIPID, TSH3, CBC, URMACRERAT, LILLIANA, FE and TIBC #### [facility] [address] Nvmbp-1-Qytokkvr 0.2 g/dL Normal 0.0-0.4 [facility] Comment on above: Performed By: #### C MP, UA, LIPID, TSH3, CBC, URMACRERAT, LILLIANA, FE and TIBC #### [address] Bukyv-4-Cyuwvuph 0.9 g/dL Normal 0.4-1.0 [facility] Comment on above: Performed By: #### C MP, UA, LIPID, TSH3, CBC, URMACRERAT, LILLIANA, FE and TIBC #### [address] Beta Globulin 1.1 g/dL Normal 0.7-1.3 [facility] Comment on above: Performed By: #### C MP, UA, LIPID, TSH3, CBC, URMACRERAT, LLILIANA, FE and TIBC #### [address] Gamma Globulin 0.9 g/dL Normal 0.4-1.8 [facility] Comment on above: Performed By: #### C MP, UA, LIPID, TSH3, CBC, URMACRERAT, LILLIANA, FE and TIBC #### [address] Globulin (S) [Mass/Vol] 3.1 g/dL Normal 2.2-3.9 [facility] Comment on above: Performed By: #### C MP, UA, LIPID, TSH3, CBC, URMACRERAT, LILLIANA, FE and TIBC #### [address] M-Chacorta Not Observed Normal Not Observed [facility] Comment on above: Performed By: #### C MP, UA, LIPID, TSH3, CBC, URMACRERAT, LILLIANA, FE and TIBC #### [address] Protein [Mass/Vol] 6.4 g/dL Normal 6.0-8.5 [facility] Comment on above: Performed By: #### C MP, UA, LIPID, TSH3, CBC, URMACRERAT, LILLIANA, FE and TIBC #### [facility] [address] SPE-Note Comment Normal . [facility] Comment on above: Result Comment: Prot ein electrophoresis scan will follow via computer, mail, or roaster operator delivery. Performed By: #### C MP, UA, LIPID, TSH3, CBC, URMACRERAT, LILLIANA, FE and TIBC #### [facility] [address] [place] [address] Protein Test strip (U) [Mass /Vol]Ordered By: OMID QUAN on 12-07-2024 Protein (U) [Mass/Vol] Negative Negative [facility] Protein [Mass/volume] in Ser um or PlasmaOrdered By: OMID QUAN on 12-07-2024 Protein [Mass/Vol] 6.5 g/dL Normal 6.4-8.9 [facility] Comment on above: Performed By: #### C MP, UA, LIPID, TSH3, CBC, URMACRERAT, LILLIANA, FE and TIBC #### [facility] [address] [place] [address] Rheumatoid Factoron 12-08-19 25 Rheumatoid Factor 10.4 Normal <14.0 [facility] Comment on above: Result Comment: Perf ormed at: - [facility] [address] [id number] Incinerator Attendant: Ramirez Ca PhD, Phone: [phone] Performed By: #### C MP, UA, LIPID, TSH3, CBC, URMACRERAT, LILLIANA, FE and TIBC #### [address] Sedimentation rate, automate don 12-07-2024 ESR (Bld) [Velocity] 22 mm/h High 0 - 19 [facility] Serum globulin measurement b y calculation (mass/volume)Ordered By: OMID QUAN on 12-07-2024 Globulin (S) [Mass/Vol] 2.7 g/dL Normal [facility] Comment on above: Performed By: #### C MP, UA, LIPID, TSH3, CBC, URMACRERAT, LILLIANA, FE and TIBC #### [address] Serum or plasma albumin/glob ulin mass ratioOrdered By: OMID QUAN on 12-07-2024 Albumin/Globulin [Mass ratio] 1.4 {ratio} Normal [facility] Comment on above: Performed By: #### C MP, UA, LIPID, TSH3, CBC, URMACRERAT, LILLIANA, FE and TIBC #### [address] Serum or plasma anion gap de terminationOrdered By: OMID QUAN on 12-07-2024 Anion gap [Moles/Vol] 11.2 mmol/L Normal 6.0-15.0 [facility] Comment on above: Performed By: #### C MP, UA, LIPID, TSH3, CBC, URMACRERAT, LILLIANA, FE and TIBC #### [address] Sodium [Moles/volume] in Ser um or PlasmaOrdered By: OMID QUAN on 12-07-2024 Sodium [Moles/Vol] 139 mmol/L Normal 136-145 [facility] Comment on above: Performed By: #### C MP, UA, LIPID, TSH3, CBC, URMACRERAT, LILLIANA, FE and TIBC #### [facility] [address] [place] [address] Specific gravity Test strip (U) [Rel density]Ordered By: OMID QUAN on 12-07-2024 Specific gravity (U) [Rel density] 1.023 1.001-1.03 0 [facility] Urea nitrogen [Mass/volume] in Serum or PlasmaOrdered By: OMID QUAN on 12-07-2024 Urea nitrogen [Mass/Vol] 12 mg/dL Normal 7-25 [facility] Comment on above: Performed By: #### C MP, UA, LIPID, TSH3, CBC, URMACRERAT, LILLIANA, FE and TIBC #### [facility] [address] [place] [id number] [facility] Urine microalbumin/creatinin e mass ratioOrdered By: OMID QUAN on 12-07-2024 Albumin/Creatinine DL <= 20 mg/L (U) [Mass ratio] TNP [facility] Comment on above: Test not performed Urobilinogen Test strip (U) [Mass/Vol]Ordered By: OMID QUAN on 12-07-2024 Urobilinogen (U) [Mass/Vol] Normal mg/dL Normal [facility] X-ray reportOrdered By: Carlie Thacker on 12-07-2024 Study report [facility] [place] [address] [place] [address] XRay Report Signed Patient: Lupe Pickard MR#: [id number] : 1975 Acct:[id number] Age/Sex: 49 / F ADM Date: 5 Loc: XD Room: Type: [facility] Attending Dr: Omid Quan RN, MSN, ANP-C Copies to: OMID QUAN RN, MSN~ Ordering Provider: OMID QUAN RN, MSN Date of Service: 12/07/24 XR/XR chest 2V*: R60.0,I27.20,R06.00,R60.1, I10,Z86 PA AND LATERAL CHEST: CLINICAL HISTORY: Bilateral lower extremity swelling and shortness of breath COMPARISON: 07/22/2023 There is no focal parenchymal consolidation, effusion or pneumothorax. The cardiac, hilar and mediastinal silhouettes are within normal limits. There is no vascular congestion. The visualized bony thorax is intact. There is slight dextroscoliotic curvature as well as mild endplate spurring. XR/XR chest 2V* IMPRESSION: NO ACUTE CARDIOPULMONARY ABNORMALITY. Impression dictated by: Rizwana Thacker M.D. 12/07/2024 11:37 AM Dictation Location: [place] [address] Transcribed By: [facility] 12/07/24 1137 Dictated By: Rizwana Thacker MD 12/07/24 1137 Signed By: 12/07/24 1137 [facility] Work Phone: XR chest 2V*on 12-07-2024 XR chest 2V* [facility] [place] [address] [place] [address] XRay Report Signed Patient: Lupe Pickard MR#: [id number] : 1975 Acct:[id number] Age/Sex: 49 / F ADM Date: 12/07/24 Loc: XD Room: Type: [facility] Attending Dr: Omid Quan RN, MSN, ANP-C Copies to: OMID QUAN RN, MSN Ordering Provider: OMID QUAN RN, MSN Date of Service: 12/07/24 XR/XR chest 2V*: R60.0,I27.20,R06.00,R60.1, I10,Z86 PA AND LATERAL CHEST: CLINICAL HISTORY: Bilateral lower extremity swelling and shortness of breath COMPARISON: 07/22/2023 There is no focal parenchymal consolidation, effusion or pneumothorax. The cardiac, hilar and mediastinal silhouettes are within normal limits. There is no vascular congestion. The visualized bony thorax is intact. There is slight dextroscoliotic curvature as well as mild endplate spurring. XR/XR chest 2V* IMPRESSION: NO ACUTE CARDIOPULMONARY ABNORMALITY. Impression dictated by: Rizwana Thacker M.D. 12/07/2024 11:37 AM Dictation Location: [place] [address] Transcribed By: [facility] 12/07/24 1137 Dictated By: Rizwana Thacker MD 12/07/24 1137 Signed By: 12/07/24 1137 Normal [facility] pH of Urine by Test stripOrd ered By: OMID QUAN on 12-07-2024 pH (U) 7.0 [pH] Normal 5.0-9.0 [facility] Comment on above: Order Comment: Name Collection Type:: Clean-Voided Midstream Performed By: #### C MP, UA, LIPID, TSH3, CBC, URMACRERAT, LILLIANA, FE and TIBC #### [facility] [address] [place] [address] Heart and Vascular Office/Cl mai Noteon 11-29-2024 Heart and Vascular Office/Clinic Note Heart and Vascular Office/Clinic Note Chief Complaint 6 month follow up - The patient presents with hypertension and palpitations. History of Present Illness - The patient is a 49-year-old female presenting with follow-up for hypertension and palpitations. - Hypertension: The patient has a history of hypertension and is currently on diltiazem, which is being discontinued in favor of losartan hydrochlorothiazide due to lower extremity non-pitting edema. - Dyspnea on exertion: The patient reports mild to moderate dyspnea on exertion, particularly noticeable when climbing stairs at her aunt's house. - Palpitations: The patient experiences palpitations, although the frequency and triggers were not detailed in the conversation. Review of Systems PHQ Score Initial Depression Screen Score: 0 SCORE - Cardiovascular: Reports palpitations. Denies chest pain. - Respiratory: Reports dyspnea on exertion. Denies cough or wheezing. Physical Exam Vitals & Measurements HR: 73(Peripheral) RR: 20 BP: 139/84 SpO2: 96% HT: 66 in HT: 167 cm WT: 319.229 lb WT: 144.8 kg BMI: 51.92 General: alert, no acute distress; untramorbid obesity due to the inability to metabolize carbohydrates insulin resistance Skin: warm, dry intact Head: atraumatic, normocephalic Neck: Trachea midline, no JVD, no bruit Eye: normal conjunctiva, sclera clear ENMT: oral mucosa moist Cardiovascular: regular rate and rhythm, nomurmur normal peripheral perfusion Respiratory: Lungs CTA, respirations non labored Chest wall: no deformity. Gastrointestinal: soft, non distended, no tenderness, no guarding. Back: No tenderness, Normal ROM, Normal alignment. Extremities: 1+ edema, no deformity, no trauma, nonpitting Neurological: oriented x 4, LOC appropriate for agesensation equal & normal bilaterally, speech normal Psychiatric: cooperative, affect appropriate for age, normal judgement, normal psychiatric thoughts. Assessment/Plan 1. Dyspnea on effort (R06.09: Other forms of dyspnea) - Monitor symptoms and consider further evaluation if dyspnea persists or worsens. Ordered: hydrochlorothiazide-losart an, 1 tab(s), Oral, Daily, 90 tab(s), Refill(s) 0, [facility], 167, cm, 11/29/24 15:47:00 EDT, Height/Length Dosing, 144.8, kg, 11/29/24 15:47:00 EDT, Weight Dosing Basic Metabolic Panel 2. Sleep apnea (G47.30: Sleep apnea, unspecified) I recommend Dr. Coon prescribe Wegovy to help with her sleep apnea as well as with her significant weight gain. Ordered: hydrochlorothiazide-losart an, 1 tab(s), Oral, Daily, 90 tab(s), Refill(s) 0, [facility], 167, cm, 11/29/24 15:47:00 EDT, Height/Length Dosing, 144.8, kg, 11/29/24 15:47:00 EDT, Weight Dosing Basic Metabolic Panel Orders: HgbA1c Hypertension - Discontinue diltiazem due to lower extremity non-pitting edema and initiate losartan hydrochlorothiazide 12.5 mg. Palpitations - Further evaluation may be needed if palpitations persist or are associated with other symptoms. Follow-up No qualifying data available Problem List/Past Medical History Ongoing Abdominal weakness Anemia Anxiety Atopic dermatitis BMI 40.0-44.9, adult Butterfly rash Chronic bilateral low back pain Chronic insomnia Chronic neck pain Degenerative disc disease, thoracic Diffuse arthralgia Encounter for screening for autism Exercise counseling Family history of autism Fibromyalgia Flu syndrome GERD (gastroesophageal reflux disease) Medication management Moderate recurrent major depression Morbid obesity Morbid obesity with BMI of 45.0-49.9, adult Nutritional counseling Other specified hypothyroidism Overactive bladder Palpitations Panic attack Poor posture Post-surgical hypothyroidism Rib pain on left side Rotator cuff injury Shoulder pain Smoker Somatic dysfunction of abdominal region Somatic dysfunction of cervical region Somatic dysfunction of head region Somatic dysfunction of lower extremities Somatic dysfunction of lumbar region Somatic dysfunction of rib cage region Somatic dysfunction of sacral spine Somatic dysfunction of thoracic region Spasm of cervical paraspinous muscle Spasm of lumbar paraspinous muscle Stress at home Symptomatic PVCs Trapezius muscle spasm Vitamin D deficiency Historical Hypervitaminosis D Smoker Procedure/Surgical History Epidural injection of anesthetic substance, therapeutic, caudal, continuous (10/10/2023), Injection of therapeutic substance into bladder wall (12/14/2021), Injection of therapeutic substance into bladder wall (01/07/2020), Injection of therapeutic substance into bladder wall (04/25/2017), robotic surgery converted to laparoscopic bilateral salpingectomy (11/27/2014), Lumbar epidural steroid injection (06/14/2013), Radiofrequency ablation of nerve root of lumbar spine using fluoroscopic guidance (01/04/2013), Injection into facet joint of lumbar spine using fluoroscopic guidance (12/14/ (more content not included)... Normal [facility] Comment on above: Result Comment: Elec tronically Signed By: Vickie PELAYO, Santos Katz\.br\Date and Time Signed: 11/29/24 16:57 EDT X-ray reportOrdered By: Michael Perez on 11-29-2024 Study report [facility] [place] [address] XRay Report Signed Patient: Lupe Pickard MR#: [id number] : 1975 Acct:[id number] Age/Sex: 49 / F ADM Date: 5 Loc: XD Room: Type: [facility] Attending Dr: Dalia Dennis DRY DIP WORKER-C Copies to: Dalia Dennis NP~ Ordering Provider: Dalia Dennis NP Date of Service: 11/29/24 XR/XR lumbar spine 2-3V*: Lumbar spine pain 2 views lumbar spine INDICATION: Presurgery testing for neurostimulator COMPARISON: MRI lumbar spine 06/18/2024 FINDINGS: Mild dextrocurvature. Lumbar vertebral heights maintained. Mild multilevel anterior vertebral space narrowing and endplate osteophytosis identified. Anterolisthesis L4 upon identified 3 mm. Facet arthropathy L4-S1 greatest L5-S1. XR/XR lumbar spine 2-3V* IMPRESSION: Degenerative changes notably lower lumbar spine. Impression dictated by: Larry Perez M.D. 11/29/2024 2:03 PM Dictation Location: [place] [address] Transcribed By: [facility] 11/29/241402 Dictated By: Larry Perez MD 11/29/241401 Signed By: 11/29/24 140 [facility] Work Phone: XR lumbar spine 2-3V*on XR lumbar spine 2-3V* [facility] [place] [address] [place] [address] XRay Report Signed Patient: Lupe Pickard MR#: [id number] : 1975 Acct:[id number] Age/Sex: 49 / F ADM Date: 11/29/24 Loc: XD Room: Type: [facility] Attending Dr: Dalia Dennis DRY DIP WORKER-C Copies to: Dalia Dennis NP Ordering Provider: Dalia Dennis NP Date of Service: 11/29/24 XR/XR lumbar spine 2-3V*: Lumbar spine pain 2 views lumbar spine INDICATION: Presurgery testing for neurostimulator COMPARISON: MRI lumbar spine 06/18/2024 FINDINGS: Mild dextrocurvature. Lumbar vertebral heights maintained. Mild multilevel anterior vertebral space narrowing and endplate osteophytosis identified. Anterolisthesis L4 upon identified 3 mm. Facet arthropathy L4-S1 greatest L5-S1. XR/XR lumbar spine 2-3V* IMPRESSION: Degenerative changes notably lower lumbar spine. Impression dictated by: Larry Perez M.D. 11/29/2024 2:03 PM Dictation Location: [place] [address] Transcribed By: [facility] 11/29/24 1403 Dictated By: Larry Perez MD 11/29/24 1402 Signed By: 11/29/24 1403 Normal [facility] Basic Metabolic Panelon GFR/1.73 sq M.predicted MDRD (S/P/Bld) [Vol rate/Area] mL/min/{1.73_m2} Normal [facility] Comment on above: Performed By: #### B MP #### [address] Calcium [Mass/volume] in Ser um or PlasmaOrdered By: Dalia Dennis on 11-27-2024 Calcium [Mass/Vol] 8.6 mg/dL Normal 8.6-10.3 [facility] Comment on above: Result Comment: PERF ORMED BY: [place] [address] PATHOLOGIST [employer]AM [employer] RECORDS CLERK MARIUM AVALOS M.D. Performed By: #### B MP #### [facility] [address] Carbon dioxide, total [Moles /volume] in Serum or PlasmaOrdered By: Dalia Dennis on 11-27-2024 CO2 [Moles/Vol] 31.9 mmol/L High 21.0-31.0 [facility] Comment on above: Performed By: #### B MP #### [facility] [address] [place] [address] [place] Chloride [Moles/volume] in S zakia or PlasmaOrdered By: Dalia Dennis on 11-27-2024 Chloride [Moles/Vol] 101 mmol/L Normal 98-107 [facility] Comment on above: Performed By: #### B MP #### [address] Creatinine [Mass/volume] in Serum or PlasmaOrdered By: Dalia Dennis on 11-27-2024 Creatinine [Mass/Vol] 0.53 mg/dL Low 0.60-1.20 [facility] Comment on above: Performed By: #### B MP #### [address] Glucose [Mass/volume] in Ser um or PlasmaOrdered By: Dalia Dennis on 11-27-2024 Glucose [Mass/Vol] 72 mg/dL Normal 70-100 [facility] Comment on above: ADA recommended refe rence rangeRandom Glucose Reference Range is dependent on time and content of last meal. Glucose of more than 200 mg/dL in a nonstressed, ambulatory subject supports the diagnosis of Diabetes Mellitus. Result Comment: [place] Glucose Reference Range is dependent on time and content of last meal. Glucose of more than 200 mg/dL in a nonstressed, ambulatory subject supports the diagnosis of Diabetes Mellitus. ADA recommended reference range Performed By: #### B MP #### [address] No Panel InformationOrdered By: Dalia Dennis on 11-27-2024 Estimated GFR (CKD-EPI) > 60.0 mL/Min [facility] Creatinine Clearance (Chem N/A [facility] Potassium [Moles/volume] in Serum or PlasmaOrdered By: Dalia Dennis on 11-27-2024 Potassium [Moles/Vol] 4.2 mmol/L Normal 3.5-5.1 [facility] Comment on above: Performed By: #### B MP #### [address] Serum or plasma anion gap de terminationOrdered By: Dalia Dennis on 11-27-2024 Anion gap [Moles/Vol] 10.3 mmol/L Normal 6.0-15.0 [facility] Comment on above: Performed By: #### B MP #### [address] Sodium [Moles/volume] in Ser um or PlasmaOrdered By: Dalia Dennis on 11-27-2024 Sodium [Moles/Vol] 139 mmol/L Normal 136-145 [facility] Comment on above: Performed By: #### B MP #### [address] Thyrotropin [Units/volume] i n Serum or PlasmaOrdered By: Kenyetta Dove on 11-27-2024 TSH Qn 1.89 m[IU]/L Normal 0.45-5.33 [facility] Comment on above: Result Comment: PERF ORMED BY: [place] [address] PATHOLOGIST [employer] RECORDS CLERK MARIUM AVALOS M.D. Performed By: #### C MP, UA, LIPID, TSH3, CBC, URMACRERAT, LILLIANA, FE and TIBC #### [address] Thyroxine (T4) free [Mass/vo lume] in Serum or PlasmaOrdered By: Kenyetta Dove on 11-27-2024 Free T4 [Mass/Vol] 0.90 ng/dL Normal 0.61-1.12 [facility] Comment on above: Performed By: #### C MP, UA, LIPID, TSH3, CBC, URMACRERAT, LILLIANA, FE and TIBC #### [facility] [address] Triiodothyronine (T3) Freeon 11-27-2024 Triiodothyronine (T3) Free 3.12 pg/mL Normal 2.50-3.90 [facility] Comment on above: Result Comment: PERF ORMED BY: [place] [address] PATHOLOGIST [employer] RECORDS CLERK MARIUM AVALOS M.D. Performed By: #### C MP, UA, LIPID, TSH3, CBC, URMACRERAT, LILLIANA, FE and TIBC #### [address] Triiodothyronine (T3) Free [ Mass/volume] in Serum or PlasmaOrdered By: Kenyetta Dove on 11-27-2024 Free T3 [Mass/Vol] 3.12 pg/mL 2.50-3.90 [facility] Urea nitrogen [Mass/volume] in Serum or PlasmaOrdered By: Dalia Dennis on 11-27-2024 Urea nitrogen [Mass/Vol] 9 mg/dL Normal 7-25 [facility] Comment on above: Performed By: #### B MP #### [address] Ambulatory Visit Summaryon 0 11-26-2024 Ambulatory Visit Summary Ambulatory Visit Summary LUPE PICKARD :1975 Visit Date:11/26/2024 Ambulatory Visit Instructions Your Diagnosis Overactive bladder Your Care Team Attending Physician - MARGOT PELAYO, Donya Weller Primary Care Physician - SHAGGY PELAYO, MELISSA Chávez This Is Your Medications List Contact prescribing physician if questions or concerns Turmeric acetaminophen (Tylenol) bifidobacterium infantis (Align) cholecalciferol (D3) diltiazem (diltiazem CD 240 mg/24 hours Cap-ER) escitalopram (Lexapro 20 mg Tab) escitalopram (escitalopram 20 mg Tab) ferrous sulfate hydrOXYzine (hydrOXYzine pamoate 25 mg Cap) levothyroxine (Synthroid 112 mcg Tab) liothyronine (liothyronine 5 mcg Tab) losartan (losartan 25 mg Tab) lubiprostone (lubiprostone 24 mcg Cap) magnesium oxide melatonin multivitamin (B Complex 100) multivitamin (Multi Vitamin+) propranolol (propranolol 20 mg Tab) Procedures Performed Epidural injection of anesthetic substance, therapeutic, caudal, continuous (10/10/2023), Injection of therapeutic substance into bladder wall [...] LEEP procedure of cervix, Thyroidectomy. Discharge Vitals Height 171 cm Height 67 in Weight 142.8 kg Weight 314.82 lb BMI 48.84 What to do next Scheduled Follow-Up Appointments 2024 3:45 PM EDT With: Vickie PELAYO, Santos Katz Where: [facility] You Need to Schedule the Following Appointments Follow Up with MARGOT PELAYO, Donya Weller, LIDIAL When: Where: [address] [place] [address] [address] [place] [phone]- Medications What How Much When Why Instructions Unchanged acetaminophen (Tylenol) Contact prescribing physician if questions or concerns Unchanged bifidobacterium infantis (Align) By Mouth Every day Contact prescribing physician if questions or concerns Unchanged cholecalciferol (D3) Contact prescribing physician if questions or concerns Unchanged diltiazem (diltiazem CD 240 mg/ 24 hours Cap-ER) 1 Capsules By Mouth Every day Contact prescribing physician if questions or concerns Unchanged escitalopram (escitalopram 20 mg Tab) TAKE 1 TABLET BY MOUTH EVERY DAY Contact prescribing physician if questions or concerns Unchanged escitalopram (Lexapro 20 mg Tab) 1 Tablets By Mouth Every day Contact prescribing physician if questions or concerns Unchanged ferrous sulfate Contact prescribing physician if questions or concerns Unchanged hydrOXYzine (hydrOXYzine pamoate 25 mg Cap) Contact prescribing physician if questions or concerns Unchanged levothyroxine (Synthroid 112 mcg Tab) 1 Tablets By Mouth Every day Hypothyroidism managed by endocrinology Contact prescribing physician if questions or concerns Unchanged liothyronine (liothyronine 5 mcg Tab) 1 Tablets Contact prescribing physician if questions or concerns Unchanged losartan (losartan 25 mg Tab) 1 Tablets By Mouth Every day Contact prescribing physician if questions or concerns Unchanged lubiprostone (lubiprostone 24 mcg Cap) 1 Capsules By Mouth 2 times a day Contact prescribing physician if questions or concerns Unchanged magnesium oxide 400 Milligram By Mouth 2 times a day Contact prescribing physician if questions or concerns Unchanged melatonin 10 Milligram By Mouth Once a day (at bedtime) Contact prescribing physician if questions or concerns Unchanged multivitamin (B Complex 100) Contact prescribing physician if questions or concerns Unchanged multivitamin (Multi Vitamin+) Contact prescribing physician if questions or concerns Unchanged propranolol (propranolol 20 mg Tab) 1 Tablets By Mouth 2 times a day Contact prescribing physician if questions or concerns Unchanged Turmeric Contact prescribing physician if questions or concerns Allergies Effexor (Dreams) Problems Ongoing - Any problem that you are currently receiving treatment for. Abdominal weakness Anemia Anxiety Atopic dermatitis BMI 40.0-44.9, adult Butterfly rash Chronic bilateral low back pain Chronic insomnia Chronic neck pain Degenerative disc disease, thoracic Diffuse arthralgia Encounter for screening for autism Exercise counseling Family history of autism Fibromyalgia Flu syndrome GERD (gastroesophageal reflux dis (more content not included)... Normal [facility] Urology Office/Clinic Noteon 11-26-2024 Urology Office/Clinic Note Urology Office/Clinic Note Chief Complaint urinary retention issues and swelling in legs and feet. HPI Staff 49 year old female presents for urinary retention issues and swelling in legs and feet. Prev dx: OAB Last seen 02/02/23 PVR 44mL Pt. is taking a Lasix Pt. states she is not urination as much as she is drinking Pt. having urgency Pt. 1x maybe 2x's a night Pt. having urge incontinence Pt. denies having pain with urination Pt. denies having gross hematuria Pt. denies having abd pain Pt. having lower back pain History of Present Illness Tests reviewed: UA I have reviewed the previous health record information and history for this patient from Naomi Casarez PA-C. I have reviewed and verified the staff HPI to be accurate for this encounter. Review of Systems PHQ Score Initial Depression Screen Score: 0 SCORE ROS - Provider Constitutional: denies weight loss, denies hot flashes. Eyes: denies eye problems. Gastrointestinal: denies nausea, denies vomiting. Cardiovascular: denies chest pain or angina. Integumentary: no dryness Musculoskeletal: denies musculoskeletal symptoms. ENMT: denies otolaryngeal symptoms. Respiratory: no shortness of breath. Heme/Lymph: denies easy bleeding tendency, denies easy bruising tendency. Psychiatric: no confusion, no anxiety. Genitourinary: See HPI. Physical Exam Vitals & Measurements HT: 67 in HT: 171 cm WT: 142.8 kg WT: 314.82 lb BMI: 48.84 General Appearance: alert, no distress, well nourished, well developed adult. Assessment/Plan 1. Overactive bladder (N32.81: Overactive bladder) S/p Botox #6 10/04/22. UA neg. Has been having urgency for months, progressively worsening. If she doesn't head to the bathroom as soon as she gets the urge, she has incontinence. She is only lasix bid, not improvement in leg edema. Has had sx improvement from botox on the past and thinks botox would help her sx. Educated that decreased frequency would not increase leg edema, in other words, botox will not make edema worse (except for extreme case of UR causing renal failure). Will schedule Botox. The procedural risks, benefits, details, and treatment [...] has been obtained. Will order Local anesthesia. Overall symptoms are becoming much more significant and she wants to proceed with a repeat Botox. She has been struggling with the lower extremity edema and this is being managed by her PCP. She is now up to 40 mg twice daily with furosemide and this is not helping much. She will have more conversations with them. I do not feel that urologically that any evidence of only 44 cc retained urine would be affecting renal function which could in turn affect peripheral edema. Apparently she has had a cardiac workup as well. She agrees to proceed with repeat Botox and antibiotic prophylaxis sent. Follow-up With When Contact Information Donya OZUNA MD, URL [address] [place] [phone] Additional Instructions: schedule Botox Patient Education Botulinum Toxin Bladder Injection I, Shayna Galaviz, personally scribed for Dr. Ozuna on 11/26/2024 10:47:25. . Documentation recorded by the scribe, Shayna Galaviz, accurately reflects the services(s) I performed and decisions made by me. Authenticated by Dr. Ozuna on 11/26/2024 11:02:18. Portions of this record may have been created with voice recognition artificial intelligence software, specifically [employer], [employer] and or [employer]. Substitutions may have occurred due to the inherent limitations of voice recognition and artificial intelligence software. Problem List/Past Medical History Ongoing Abdominal weakness Anemia Anxiety Atopic dermatitis BMI 40.0-44.9, adult Butterfly rash Chronic bilateral low back pain Chronic insomnia Chronic neck pain Degenerative disc disease, thoracic Diffuse arthralgia Encounter for screening for autism Exercise counseling Family history of autism Fibromyalgia Flu syndrome GERD (gastroesophageal reflux disease) Medication management Moderate recurrent major depression Morbid obesity Morbid obesity with BMI of 45.0-49.9, adult Nutritional counseling Other specified hypothyroidism Overactive bladder Palpitations Panic attack Poor posture Post-surgical hypothyroidism Rib pain on left side Rotator cuff injury Shoulder pa (more content not included)... Normal [facility] Comment on above: Result Comment: Elec tronically Signed By: Donya OZUNA MD\.br\Date and Time Signed: 11/26/24 11:03 EDT\.br\Electronically Co-Signed By: Galaviz, Shayna P\.br\Date and Time Co-Signed: 11/26/24 10:47 EDT BNP ser/plasOrdered By: Dalia Dennis on 11-21-2024 Natriuretic peptide B (Bld) [Mass/Vol] 54.0 pg/mL Normal 5-100 [facility] Comment on above: Result Comment: PERF ORMED BY: [place] [address] PATHOLOGIST [employer] RECOR[employer] CLERK MARIUM AVALOS M.D. Performed By: #### C MP, UA, LIPID, TSH3, CBC, URMACRERAT, LILLIANA, FE and TIBC #### [address] Basic Metabolic Panelon 10-29 GFR/1.73 sq M.predicted MDRD (S/P/Bld) [Vol rate/Area] mL/min/{1.73_m2} Normal [facility] Comment on above: Performed By: #### C MP, UA, LIPID, TSH3, CBC, URMACRERAT, LILLIANA, FE and TIBC #### [facility] [address] [place] [id number] [facility] Calcium [Mass/volume] in Ser um or PlasmaOrdered By: Dalia Dennis on 11-21-2024 Calcium [Mass/Vol] 8.8 mg/dL Normal 8.6-10.3 [facility] Comment on above: Result Comment: PERF ORMED BY: [place] [address] PATHOLOGIST [employer] RECORDS CLERK MARIUM AVALOS M.D. Performed By: #### C MP, UA, LIPID, TSH3, CBC, URMACRERAT, LILLIANA, FE and TIBC #### [facility] [address] [place] [address] [place] Carbon dioxide, total [Moles /volume] in Serum or PlasmaOrdered By: Dalia Dennis on 11-21-2024 CO2 [Moles/Vol] 29.8 mmol/L Normal 21.0-31.0 [facility] Comment on above: Performed By: #### C MP, UA, LIPID, TSH3, CBC, URMACRERAT, LILLIANA, FE and TIBC #### [facility] [address] Chloride [Moles/volume] in S zakia or PlasmaOrdered By: Dalia Dennis on 11-21-2024 Chloride [Moles/Vol] 103 mmol/L Normal 98-107 [facility] Comment on above: Performed By: #### C MP, UA, LIPID, TSH3, CBC, URMACRERAT, LILLIANA, FE and TIBC #### [facility] [address] Creatinine [Mass/volume] in Serum or PlasmaOrdered By: Dalia Dennis on 11-21-2024 Creatinine [Mass/Vol] 0.50 mg/dL Low 0.60-1.20 [facility] Comment on above: Performed By: #### C MP, UA, LIPID, TSH3, CBC, URMACRERAT, LILLIANA, FE and TIBC #### [facility] [address] Glucose [Mass/volume] in Ser um or PlasmaOrdered By: Dalia Dennis on 11-21-2024 Glucose [Mass/Vol] 100 mg/dL Normal 70-100 [facility] Comment on above: ADA recommended refe rence rangeRandom Glucose Reference Range is dependent on time and content of last meal. Glucose of more than 200 mg/dL in a nonstressed, ambulatory subject supports the diagnosis of Diabetes Mellitus. Result Comment: [place] Glucose Reference Range is dependent on time and content of last meal. Glucose of more than 200 mg/dL in a nonstressed, ambulatory subject supports the diagnosis of Diabetes Mellitus. ADA recommended reference range Performed By: #### C MP, UA, LIPID, TSH3, CBC, URMACRERAT, LILLIANA, FE and TIBC #### [facility] [address] No Panel InformationOrdered By: Dalia Dennis on 11-21-2024 Estimated GFR (CKD-EPI) > 60.0 mL/Min [facility] Creatinine Clearance (Chem N/A [facility] Potassium [Moles/volume] in Serum or PlasmaOrdered By: Dalia Dennis on 11-21-2024 Potassium [Moles/Vol] 4.2 mmol/L Normal 3.5-5.1 [facility] Comment on above: Performed By: #### C MP, UA, LIPID, TSH3, CBC, URMACRERAT, LILLIANA, FE and TIBC #### [facility] [address] [place] [address] Serum or plasma anion gap de terminationOrdered By: Dalia Dennis on 11-21-2024 Anion gap [Moles/Vol] 9.4 mmol/L Normal 6.0-15.0 [facility] Comment on above: Performed By: #### C MP, UA, LIPID, TSH3, CBC, URMACRERAT, LILLIANA, FE and TIBC #### [facility] [address] [place] [address] Sodium [Moles/volume] in Ser um or PlasmaOrdered By: Dalia Dennis on 11-21-2024 Sodium [Moles/Vol] 138 mmol/L Normal 136-145 [facility] Comment on above: Performed By: #### C MP, UA, LIPID, TSH3, CBC, URMACRERAT, LILLIANA, FE and TIBC #### [facility] [address] [place] [address] Urea nitrogen [Mass/volume] in Serum or PlasmaOrdered By: Dalia Dennis on 11-21-2024 Urea nitrogen [Mass/Vol] 13 mg/dL Normal 7-25 [facility] Comment on above: Performed By: #### C MP, UA, LIPID, TSH3, CBC, URMACRERAT, LILLIANA, FE and TIBC #### [facility] [address] [place] [address] ECH echo transthoracicon ECH echo transthoracic [facility] [place] [address] Echocardiogram Signed Patient: Lupe Pickard MR#: [id number] : 1975 Acct:[id number] Age/Sex: 49 / F ADM Date: 11/09/24 Loc: Room: Type: [facility] Attending Dr: Tanner Menendez PA-C Ordering Provider: Tanner Menendez PA-C Date of Service: 11/09/24/ ECH/ECH echo transthoracic: EDEMA, SOB Copies to: Ric Asher MD, [facility] Tanner Menendez PA-C BSA: 2.4 m2 BP: 141/89 mmHg HR: 71 Reason For Study: EDEMA, SOB History: HTN, COVID Interpretation Summary The left ventricular size, thickness and function are normal Ejection Fraction = 60-65%. A variety of Doppler measurements indicate impaired left ventricular relaxation, which is associated with grade I/IV or mild diastolic dysfunction. The left atrium appears mildly dilated. There is trace mitral regurgitation. There is mild tricuspid regurgitation. Right ventricular systolic pressure is elevated at 30-40mmHg. Right ventricular systolic pressure is consistent with mild pulmonary hypertension. When compared to study from 05/06/2020, mild pulmonary hypertension has developed Procedure/Quality: A two-dimensional transthoracic echocardiogram with color flow, Doppler and injection of contrast agent Definity was performed. The study was technically good in quality. When compared to study from 05/06/2020, mild pulmonary hypertension has developed. Left Ventricle: The left ventricular size, thickness and function are normal. Ejection Fraction = 60-65%. A variety of Doppler measurements indicate impaired left ventricular relaxation, which is associated with grade I/IV or mild diastolic dysfunction. Left Atrium: The left atrium appears mildly dilated. The atrial septum appears normal. Right Atrium: The right atrium appears normal in size. Right Ventricle: The right ventricular size, thickness and function are normal. Aortic Valve: The aortic valve is normal in structure and function. Mitral Valve: The mitral valve is normal. There is trace mitral regurgitation. Tricuspid Valve: The tricuspid valve is normal in structure. There is mild tricuspid regurgitation. Right ventricular systolic pressure is elevated at 30-40mmHg. Right ventricular systolic pressure is consistent with mild pulmonary hypertension. Pulmonic Valve: The pulmonic valve is not well seen, but is grossly normal. Arteries: The aortic root is normal size. Pericardium/Pleura: No pericardial effusion seen. There is no pleural effusion. IVC/Hepatic Veins: The IVC is normal in size with an inspiratory collapse of greater then 50%, suggesting normal right atrial pressure. Miscellaneous: No thrombus, vegetation or mass is seen. Measurements with Normals IVSd: 1.1 cm (0.7-1.1 cm)LVIDd: 5.2 cm (3.7-5.4 cm) LVPWd: 1.1 cm (0.7-1.1 cm)LVIDs: 3.2 cm (2.3-3.6 cm) LA dimension: 4.1 cm (2.3-4.0 cm)Ao root diam: 3.2 cm(2.0-3.6 cm) asc Aorta Diam: 3.3 cm(2.1-3.4cm) Doppler with Normals RVSP(TR): 39.1 mmHg (18-35mmHg) LV V1 max: 99.9 cm/sec (0.7-1.7m/s)MV E max des: 84.9 cm/sec(0.8-1.3m/s) MV A max des: 95.6 cm/sec(0.0-0.0m/s) MV E/A: 0.89 (<1.5) MMode/2D Measurements Calculations RVDd: 2.9 cm FS: 38.2 % Ao root area: LVOT diam: 2.1 cm TAPSE: 3.0 cm EDV(Teich): 8.2 cm2 LVOT area: 3.4 cm2 RV S Des: 126.8 ml 19.4 cm/sec ESV(Teich): 40.5 ml EF(Teich): 68.0 % __ LVLd ap4: 8.1 cm SV(MOD-sp4): LAV(MOD-sp4): LA A2 area: 20.9 cm2 EDV(MOD-sp4): 62.5 ml 70.8 ml 141.0 ml LAV(MOD-sp2): LA A4 area: 24.0 cm2 LVLs ap4: 7.8 cm 55.3 ml LA length (vol): ESV(MOD-sp4): 6.6 cm 78.5 ml LA vol: 64.9 ml EF(MOD-sp4): 44.4 % LA vol index: 27.0 ml/m2 Doppler Measurements Calculations MV dec time: MV V2 max: E/E' lat: 7.2 MV P1/2t max des: 0.23 sec 111.3 cm/sec E/E' med: 7.6 107.5 cm/sec MV max PG: MV P1/2t: 65.1 msec 24.0 mmHg MV V2 mean: MVA(P1/2t): 3.4 cm2 54.8 cm/sec MV dec slope: MV mean P.4 cm/sec2 1.6 mmHg MV V2 VTI: 39.2 cm MVA(VTI): 2.1 cm2 __ Ao V2 max: LV V1 max PG: MR max des: TV max P.0 mmHg 153.2 cm/sec 4.0 mmHg 247.0 cm/sec Ao max PG: LV V1 mean PG: MR max P.4 mmHg 2.0 mmHg 24.4 mmHg Ao mean PG: LV V1 mean: 5.0 mmHg 64.4 cm/sec Ao V2 mean: LV V1 VTI: 24.5 cm 107.2 cm/sec Ao V2 VTI: 34.2 cm SANTOS(I,D): 2.4 cm2 SANTOS(V,D): 2.2 cm2 __ TR max des: 291.8 cm/sec TR max P.1 mmHg RAP systole: 5.0 mmHg Transcribed By: GIO Performed At: 11/09/24 0858 Signed By: Ric Asher MD, [facility] 11/09/24 1644 Normal [facility] Adrenocorticotropic Hormone PLon 10-25-[address] 19.5 pg/mL Normal 7.2-63.3 [facility] Comment on above: Order Comment: Name Collection Type:: Clean-Voided Midstream Result Comment: ACTH reference interval for samples collected between 7 and 10 AM. Performed at: [address] [id number] Incinerator Attendant: Ramirez Ca PhD, Phone: [phone] PERFORMED BY: [place] [address] PATHOLOGIST [employer] RECORDS CLERK MARIUM AVALOS M.D. Performed By: #### C MP, UA, LIPID, TSH3, CBC, URMACRERAT, LILLIANA, FE and TIBC #### [facility] [address] [place] [address] Cortisol, ACTH Stimulationon 10-25-2024 Cortisol, ACTH Stimulation Normal [facility] Comment on above: Order Comment: Name Collection Type:: Clean-Voided Midstream Result Comment: [employer] 11.5 Col: 10/25/24 0827 Dominic 30Min 17.0 Col: 10/25/24 0920 Dominic 60Min 22.6 Col: 10/25/24 0947 PERFORMED BY: [place] [address] PATHOLOGIST [employer] RECOR[employer] CLERK MARIUM AVALOS M.D. Performed By: #### C MP, UA, LIPID, TSH3, CBC, URMACRERAT, LILLIANA, FE and TIBC #### [facility] [address] [place] [address] No Panel InformationOrdered By: Kenyetta Dove on 10-25-2024 Cortisol Response to Stimulation See comment [facility] Comment on above: [employer] 11.5 Col: 10/25/24 0827 Dominic 30Min PENDING RECEIPT Col: 10/25/24 0915 [employer]ic 60Min PENDING RECEIPT Col: 10/25/24 0945 [employer] 11.5 Col: 10/25/24 0827 [employer]ic 30Min 17.0 Col: 10/25/24 0920 [employer]ic 60Min 22.6 Col: 10/25/24 0947 Alanine aminotransferase [En zymatic activity/volume] in Serum or PlasmaOrdered By: Tanner Menendez on 10-09-2024 ALT [Catalytic activity/Vol] Alanine aminotransferase [Enzymatic activity/volume] in Serum or Plasma [facility] ALT [Catalytic activity/Vol] 15 U/L Normal [facility] Comment on above: Performed By: #### C MP, UA, LIPID, TSH3, CBC, URMACRERAT, LILLIANA, FE and TIBC #### [facility] [address] Albumin [Mass/volume] in Ser um or Plasma by Bromocresol green (BCG) dye binding methoOrdered By: summerman on 10-09-2024 Albumin BCG dye [Mass/Vol] Albumin [Mass/volume] in Serum or Plasma by Bromocresol green (BCG) dye binding metho 3.5-5.7 [facility] Albumin BCG dye [Mass/Vol] 3.7 g/dL 3.5-5.7 [facility] Alkaline phosphatase [Enzyma tic activity/volume] in Serum or PlasmaOrdered By: summer on 10-09-2024 ALP [Catalytic activity/Vol] Alkaline phosphatase [Enzymatic activity/volume] in Serum or Plasma 34-104 [facility] ALP [Catalytic activity/Vol] 51 U/L Normal 34-104 [facility] Comment on above: Result Comment: PERF ORMED BY: [place] [address] PATHOLOGIST [employer] RECORDS CLERK SYLVIA CRUZ M.D. Performed By: #### C MP, UA, LIPID, TSH3, CBC, URMACRERAT, LILLIANA, FE and TIBC #### [facility] [address] [place] [address] Aspartate aminotransferase [ Enzymatic activity/volume] in Serum or PlasmaOrdered By: Summer Work on 10-09-2024 AST [Catalytic activity/Vol] Aspartate aminotransferase [Enzymatic activity/volume] in Serum or Plasma Low 13-39 [facility] AST [Catalytic activity/Vol] 12 U/L Low 13-39 [facility] Comment on above: Performed By: #### C MP, UA, LIPID, TSH3, CBC, URMACRERAT, LILLIANA, FE and TIBC #### [address] BNP ser/plasOrdered By: Work on 10-09-2024 Natriuretic peptide B (Bld) [Mass/Vol] 86.0 pg/mL Normal 5-100 [facility] Comment on above: Result Comment: PERF ORMED BY: [place] [address] PATHOLOGIST [employer] RECOR[employer] CLERK SYLVIA CRUZ M.D. Performed By: #### C MP, UA, LIPID, TSH3, CBC, URMACRERAT, LILLIANA, FE and TIBC #### [address] Bilirubin.total [Mass/volume ] in Serum or PlasmaOrdered By: Summer Workman on 10-09-2024 Bilirubin [Mass/Vol] Bilirubin.total [Mass/volume] in Serum or Plasma 0.3-1.0 [facility] Bilirubin [Mass/Vol] 0.3 mg/dL Normal 0.3-1.0 [facility] Comment on above: Performed By: #### C MP, UA, LIPID, TSH3, CBC, URMACRERAT, LILLIANA, FE and TIBC #### [address] Calcium [Mass/volume] in Ser um or PlasmaOrdered By: Summer Workman on 10-09-2024 Calcium [Mass/Vol] Calcium [Mass/volume ] in Serum or Plasma 8.6-10.3 [facility] Calcium [Mass/Vol] 8.6 mg/dL Normal 8.6-10.3 [facility] Comment on above: Performed By: #### C MP, UA, LIPID, TSH3, CBC, URMACRERAT, LILLIANA, FE and TIBC #### [address] Carbon dioxide, total [Moles /volume] in Serum or PlasmaOrdered By: Summer Workman on 10-09-2024 CO2 [Moles/Vol] Carbon dioxide, tota l [Moles/volume] in Serum or Plasma High 21.0-31.0 [facility] CO2 [Moles/Vol] 31.1 mmol/L High 21.0-31.0 [facility] Comment on above: Performed By: #### C MP, UA, LIPID, TSH3, CBC, URMACRERAT, LILLIANA, FE and TIBC #### [facility] [address] [place] [address] [place] Chloride [Moles/volume] in S zakia or PlasmaOrdered By: Summer Workman on 10-09-2024 Chloride [Moles/Vol] Chloride [Moles/vol ume] in Serum or Plasma 98-107 [facility] Chloride [Moles/Vol] 103 mmol/L Normal 98-107 [facility] Comment on above: Performed By: #### C MP, UA, LIPID, TSH3, CBC, URMACRERAT, LILLIANA, FE and TIBC #### [facility] [address] Comprehensive Metabolic Pane soniya 10-09-2024 Albumin [Mass/Vol] 3.7 g/dL Normal 3.5-5.7 [facility] Comment on above: Performed By: #### C MP, UA, LIPID, TSH3, CBC, URMACRERAT, LILLIANA, FE and TIBC #### [facility] [address] [place] [address] [place] GFR/1.73 sq M.predicted MDRD (S/P/Bld) [Vol rate/Area] mL/min/{1.73_m2} Normal [facility] Comment on above: Performed By: #### C MP, UA, LIPID, TSH3, CBC, URMACRERAT, LILLIANA, FE and TIBC #### [facility] [address] Creatinine [Mass/volume] in Serum or PlasmaOrdered By: Summer Workman on 10-09-2024 Creatinine [Mass/Vol] Creatinine [Mass/v olume] in Serum or Plasma Low 0.60-1.20 [facility] Creatinine [Mass/Vol] 0.45 mg/dL Low 0.60-1.20 [facility] Comment on above: Performed By: #### C MP, UA, LIPID, TSH3, CBC, URMACRERAT, LILLIANA, FE and TIBC #### [facility] [address] Creatinine [Mass/volume] in UrineOrdered By: Summer Workman on 10-09-2024 Creatinine (U) [Mass/Vol] Creatinine [Mass/volume] in Urine [facility] Comment on above: No reference range e stablished Creatinine (U) [Mass/Vol] 34.00 mg/dL [facility] Comment on above: No reference range e stablished Globulin Calc (S) [Mass/Vol] Ordered By: summer on 10-09-2024 Globulin (S) [Mass/Vol] Serum globulin measurement by calculation (mass/volume) [facility] Glucose [Mass/volume] in Ser um or PlasmaOrdered By: summer on 10-09-2024 Glucose [Mass/Vol] Glucose [Mass/volume ] in Serum or Plasma High 70-100 [facility] Comment on above: ADA recommended refe rence rangeRandom Glucose Reference Range is dependent on time and content of last meal. Glucose of more than 200 mg/dL in a nonstressed, ambulatory subject supports the diagnosis of Diabetes Mellitus. Glucose [Mass/Vol] 110 mg/dL High 70-100 [facility] Comment on above: ADA recommended refe rence rangeRandom Glucose Reference Range is dependent on time and content of last meal. Glucose of more than 200 mg/dL in a nonstressed, ambulatory subject supports the diagnosis of Diabetes Mellitus. Result Comment: [place] om Glucose Reference Range is dependent on time and content of last meal. Glucose of more than 200 mg/dL in a nonstressed, ambulatory subject supports the diagnosis of Diabetes Mellitus. ADA recommended reference range Performed By: #### C MP, UA, LIPID, TSH3, CBC, URMACRERAT, LILLIANA, FE and TIBC #### [facility] [address] [place] [address] [place] MicroAlb Creat Ratio,Uon Creatinine, Urine (Random) 34.00 mg/dL Normal [facility] Comment on above: Result Comment: No r eference range established Performed By: #### C MP, UA, LIPID, TSH3, CBC, URMACRERAT, LILLIANA, FE and TIBC #### [facility] [address] [place] [address] [place] Microalbumin/Creatini ne Ratio Not performed Normal 0.0-30.0 [facility] Comment on above: Result Comment: PERF ORMED BY: [place] [address] PATHOLOGIST [employer] RECOR[employer] CLERK SYLVIA CRUZ M.D. Performed By: #### C MP, UA, LIPID, TSH3, CBC, URMACRERAT, LILLIANA, FE and TIBC #### [facility] [address] [place] [address] Microalbumin [Mass/volume] i n UrineOrdered By: Summer Workman on 10-09-2024 Albumin DL <= 20 mg/L (U) [Mass/Vol] Microalbumin [Mass/volume] in Urine 0.0-1.8 [facility] Albumin DL <= 20 mg/L (U) [Mass/Vol] mg/dL Normal 0.0-1.8 [facility] Comment on above: Performed By: #### C MP, UA, LIPID, TSH3, CBC, URMACRERAT, LILLIANA, FE and TIBC #### [facility] [address] [place] [address] Natriuretic peptide B [Mass/ Vol]Ordered By: Summer Workman on 10-09-2024 Natriuretic peptide B (Bld) [Mass/Vol] BNP ser/plas 5-100 [facility] No Panel InformationOrdered By: Summer Workman on 10-09-2024 Estimated GFR (CKD-EPI) > 60.0 mL/Min [facility] Creatinine Clearance (Chem N/A [facility] Potassium [Moles/volume] in Serum or PlasmaOrdered By: Summer Workman on 10-09-2024 Potassium [Moles/Vol] Potassium [Moles/v olume] in Serum or Plasma 3.5-5.1 [facility] Potassium [Moles/Vol] 4.0 mmol/L Normal 3.5-5.1 [facility] Comment on above: Performed By: #### C MP, UA, LIPID, TSH3, CBC, URMACRERAT, LILLIANA, FE and TIBC #### [facility] [address] [place] [address] [place] Protein [Mass/volume] in Ser um or PlasmaOrdered By: Summer Workman on 10-09-2024 Protein [Mass/Vol] Protein [Mass/volume ] in Serum or Plasma Low 6.4-8.9 [facility] Protein [Mass/Vol] 6.0 g/dL Low 6.4-8.9 [facility] Comment on above: Performed By: #### C MP, UA, LIPID, TSH3, CBC, URMACRERAT, LILLIANA, FE and TIBC #### [facility] [address] Serum globulin measurement b y calculation (mass/volume)Ordered By: Summer Workman on 10-09-2024 Globulin (S) [Mass/Vol] 2.3 g/dL Normal [facility] Comment on above: Performed By: #### C MP, UA, LIPID, TSH3, CBC, URMACRERAT, LILLIANA, FE and TIBC #### [facility] [address] Serum or plasma albumin/glob ulin mass ratioOrdered By: Summer Workman on 10-09-2024 Albumin/Globulin [Mass ratio] Serum or plasma albumin/globulin mass ratio [facility] Albumin/Globulin [Mass ratio] 1.6 {ratio} Normal [facility] Comment on above: Performed By: #### C MP, UA, LIPID, TSH3, CBC, URMACRERAT, LILLIANA, FE and TIBC #### [facility] [address] Serum or plasma anion gap de terminationOrdered By: Summer Workman on 10-09-2024 Anion gap [Moles/Vol] Serum or plasma an ion gap determination 6.0-15.0 [facility] Anion gap [Moles/Vol] 8.9 mmol/L Normal 6.0-15.0 [facility] Comment on above: Performed By: #### C MP, UA, LIPID, TSH3, CBC, URMACRERAT, LILLIANA, FE and TIBC #### [facility] [address] Sodium [Moles/volume] in Ser um or PlasmaOrdered By: Summer Workman on 10-09-2024 Sodium [Moles/Vol] Sodium [Moles/volume ] in Serum or Plasma 136-145 [facility] Sodium [Moles/Vol] 139 mmol/L Normal 136-145 [facility] Comment on above: Performed By: #### C MP, UA, LIPID, TSH3, CBC, URMACRERAT, LILLIANA, FE and TIBC #### [facility] [address] Urea nitrogen [Mass/volume] in Serum or PlasmaOrdered By: Summer Workman on 10-09-2024 Urea nitrogen [Mass/Vol] Urea nitrogen [Mass/volume] in Serum or Plasma 725 [facility] Urea nitrogen [Mass/Vol] 9 mg/dL Normal 12-21 [facility] Comment on above: Performed By: #### C MP, UA, LIPID, TSH3, CBC, URMACRERAT, LILLIANA, FE and TIBC #### [facility] [address] Urine microalbumin/creatinin e mass ratioOrdered By: Summer Workman on 10-09-2024 Albumin/Creatinine DL <= 20 mg/L (U) [Mass ratio] Urine microalbumin/creatinine mass ratio [facility] Comment on above: Test not performed Albumin/Creatinine DL <= 20 mg/L (U) [Mass ratio] TNP [facility] Comment on above: Test not performed Cortisolon 08-29-2024 Cortisol 6.2 ug/dL Normal [facility] Comment on above: Result Comment: Refe rence range: AM 6 - 24 ug/dl PM <10 ug/dl [facility] it desktop support specialist and method: KAREN UNICEL DXI, POLYCLONAL ANTIBODY CORTISOL ASSAY. PERFORMED BY: [place] [address] PATHOLOGIST [employer] RECOR[employer] CLERK SYLVIA CRUZ M.D. Performed By: #### C MP, UA, LIPID, TSH3, CBC, URMACRERAT, LILLIANA, FE and TIBC #### [address] Cortisol [Mass/volume] in Se rum or PlasmaOrdered By: Kenyetta Dove on 08-29-2024 Cortisol [Mass/Vol] Random cortisol measurement [facility] Comment on above: [facility] it desktop support specialist and method:KAREN UNICEL DXI, POLYCLONAL ANTIBODY CORTISOL ASSAY.Reference range: AM 6 - 24 ug/dl PM <10 ug/dl Cortisol [Mass/Vol] 6.2 ug/dL [facility] Comment on above: [facility] it desktop support specialist and method:KAREN UNICEL DXI, POLYCLONAL ANTIBODY CORTISOL ASSAY.Reference range: AM 6 - 24 ug/dl PM <10 ug/dl Alanine aminotransferase [En zymatic activity/volume] in Serum or PlasmaOrdered By: Melissa Coon on 08-03-2024 ALT [Catalytic activity/Vol] Alanine aminotransferase [Enzymatic activity/volume] in Serum or Plasma 7-52 [facility] Albumin [Mass/volume] in Ser um or Plasma by Bromocresol green (BCG) dye binding methoOrdered By: Melissa Coon on 08-03-2024 Albumin BCG dye [Mass/Vol] Albumin [Mass/volume] in Serum or Plasma by Bromocresol green (BCG) dye binding metho 3.5-5.7 [facility] Alkaline phosphatase [Enzyma tic activity/volume] in Serum or PlasmaOrdered By: Melissa Coon on 08-03-2024 ALP [Catalytic activity/Vol] Alkaline phosphatase [Enzymatic activity/volume] in Serum or Plasma 34-104 [facility] Aspartate aminotransferase [ Enzymatic activity/volume] in Serum or PlasmaOrdered By: Melissa Coon on 08-03-2024 AST [Catalytic activity/Vol] Aspartate aminotransferase [Enzymatic activity/volume] in Serum or Plasma Low 13-39 [facility] Basophils Auto (Bld) [#/Vol] Ordered By: Melissa Coon on 08-03-2024 Basophils (Bld) [#/Vol] Automated basophil count 0.0-0.2 [facility] Basophils/100 WBC Auto (Bld) Ordered By: Melissa Coon on 08-03-2024 Basophils/100 WBC (Bld) Automated basophil % . [facility] Bilirubin.total [Mass/volume ] in Serum or PlasmaOrdered By: Melissa Coon on 08-03-2024 Bilirubin [Mass/Vol] Bilirubin.total [Mass/volume] in Serum or Plasma 0.3-1.0 [facility] Calcium [Mass/volume] in Ser um or PlasmaOrdered By: Melissa Coon on 08-03-2024 Calcium [Mass/Vol] Calcium [Mass/volume ] in Serum or Plasma 8.6-10.3 [facility] Carbon dioxide, total [Moles /volume] in Serum or PlasmaOrdered By: Melissa Coon on 08-03-2024 CO2 [Moles/Vol] Carbon dioxide, tota l [Moles/volume] in Serum or Plasma 21.0-31.0 [facility] Chloride [Moles/volume] in S zakia or PlasmaOrdered By: Melissa Coon on 08-03-2024 Chloride [Moles/Vol] Chloride [Moles/vol ume] in Serum or Plasma 98-107 [facility] Complete Blood Count Auto Di ffon 08-03-2024 Basophils (Bld) [#/Vol] 0.1 10*3/uL Normal 0.0-0.2 [facility] Comment on above: Result Comment: PERF ORMED BY: [place] [address] PATHOLOGIST [employer] RECOR[employer] CLERK SYLVIA CRUZ M.D. Performed By: #### C BC #### [address] Basophils/100 WBC (Bld) 0.7 % Normal . [facility] Comment on above: Performed By: #### C BC #### [place] [address] [place] Eosinophils (Bld) [#/Vol] 0.1 10*3/uL Normal 0.0-0.45 [facility] Comment on above: Performed By: #### C BC #### [place] [address] [place] Eosinophils/100 WBC (Bld) 1.1 % Normal . [facility] Comment on above: Performed By: #### C BC #### [address] Erythrocyte distribution width (RBC) [Ratio] 14.3 % Normal 11.9-15.3 [facility] Comment on above: Performed By: #### C BC #### [address] Hematocrit (Bld) [Volume fraction] 41.4 % Normal 34.0-46.4 [facility] Comment on above: Performed By: #### C BC #### [address] Hemoglobin (Bld) [Mass/Vol] 13.9 g/dL Normal 11.8-15.4 [facility] Comment on above: Performed By: #### C BC #### [address] Lymphocytes (Bld) [#/Vol] 3.4 10*3/uL Normal 1.00-4.8 [facility] Comment on above: Performed By: #### C BC #### [address] Lymphocytes/100 WBC (Bld) 28.3 % Normal . [facility] Comment on above: Performed By: #### C BC #### [address] MCH (RBC) [Entitic mass] 30.6 pg Normal 24.7-34.3 [facility] Comment on above: Performed By: #### C BC #### [address] MCV (RBC) [Entitic vol] 90.8 fL Normal 80-100 [facility] Comment on above: Performed By: #### C BC #### [address] Mean Corpuscular HGB Conc 33.7 g/dL Normal 32.0-35.0 [facility] Comment on above: Performed By: #### C BC #### [address] Monocytes (Bld) [#/Vol] 0.6 10*3/uL Normal 0.0-0.8 [facility] Comment on above: Performed By: #### C BC #### [address] Monocytes/100 WBC (Bld) 4.6 % Normal . [facility] Comment on above: Performed By: #### C BC #### [address] Neutrophils (Bld) [#/Vol] 7.9 10*3/uL High 1.8-7.7 [facility] Comment on above: Performed By: #### C BC #### [address] Neutrophils/100 WBC (Bld) 65.3 % Normal . [facility] Comment on above: Performed By: #### C BC #### [address] NRBC% 0.0 /100{WBC} Normal 0-0.5 [facility] Comment on above: Performed By: #### C BC #### [address] Platelet mean volume (Bld) [Entitic vol] 7.5 fL Normal 6.3-10.7 [facility] Comment on above: Performed By: #### C BC #### [place] [address] [place] Platelets (Bld) [#/Vol] 395 10*3/uL Normal 150-450 [facility] Comment on above: Performed By: #### C BC #### [place] [address] [place] RBC (Bld) [#/Vol] 4.56 10*6/uL Normal 3.60-5.00 [facility] Comment on above: Performed By: #### C BC #### [address] WBC (Bld) [#/Vol] 12.1 10*3/uL High 3.8-11.6 [facility] Comment on above: Performed By: #### C BC #### [address] [place] [address] [place] Comprehensive Metabolic Pane soniya 08-03-2024 Albumin [Mass/Vol] 3.7 g/dL Normal 3.5-5.7 [facility] Comment on above: Performed By: #### C MP, UA, LIPID, TSH3, CBC, URMACRERAT, LILLIANA, FE and TIBC #### [address] Albumin/Globulin [Mass ratio] 1.4 {ratio} Normal [facility] Comment on above: Performed By: #### C MP, UA, LIPID, TSH3, CBC, URMACRERAT, LILLIANA, FE and TIBC #### [address] ALP [Catalytic activity/Vol] 47 U/L Normal 34-104 [facility] Comment on above: Performed By: #### C MP, UA, LIPID, TSH3, CBC, URMACRERAT, LILLIANA, FE and TIBC #### [address] ALT [Catalytic activity/Vol] 17 U/L Normal 7-52 [facility] Comment on above: Performed By: #### C MP, UA, LIPID, TSH3, CBC, URMACRERAT, LILLIANA, FE and TIBC #### [address] Anion gap [Moles/Vol] 10.1 mmol/L Normal 6.0-15.0 [facility] Comment on above: Performed By: #### C MP, UA, LIPID, TSH3, CBC, URMACRERAT, LILLIANA, FE and TIBC #### [address] AST [Catalytic activity/Vol] 12 U/L Low 13-39 [facility] Comment on above: Performed By: #### C MP, UA, LIPID, TSH3, CBC, URMACRERAT, LILLIANA, FE and TIBC #### [address] Bilirubin [Mass/Vol] 0.5 mg/dL Normal 0.3-1.0 [facility] Comment on above: Performed By: #### C MP, UA, LIPID, TSH3, CBC, URMACRERAT, LILLIANA, FE and TIBC #### [address] Calcium [Mass/Vol] 8.7 mg/dL Normal 8.6-10.3 [facility] Comment on above: Performed By: #### C MP, UA, LIPID, TSH3, CBC, URMACRERAT, LILLIANA, FE and TIBC #### [address] Chloride [Moles/Vol] 105 mmol/L Normal 98-107 [facility] Comment on above: Performed By: #### C MP, UA, LIPID, TSH3, CBC, URMACRERAT, LLILIANA, FE and TIBC #### [address] CO2 [Moles/Vol] 29.2 mmol/L Normal 21.0-31.0 [facility] Comment on above: Performed By: #### C MP, UA, LIPID, TSH3, CBC, URMACRERAT, LILLIANA, FE and TIBC #### [address] Creatinine [Mass/Vol] 0.58 mg/dL Low 0.60-1.20 [facility] Comment on above: Performed By: #### C MP, UA, LIPID, TSH3, CBC, URMACRERAT, LILLIANA, FE and TIBC #### [address] GFR/1.73 sq M.predicted MDRD (S/P/Bld) [Vol rate/Area] mL/min/{1.73_m2} Normal [facility] Comment on above: Performed By: #### C MP, UA, LIPID, TSH3, CBC, URMACRERAT, LILLIANA, FE and TIBC #### [address] Globulin (S) [Mass/Vol] 2.6 g/dL Normal [facility] Comment on above: Performed By: #### C MP, UA, LIPID, TSH3, CBC, URMACRERAT, LILLIANA, FE and TIBC #### [address] Glucose [Mass/Vol] 98 mg/dL Normal 70-100 [facility] Comment on above: Result Comment: [facility] Glucose Reference Range is dependent on time and content of last meal. Glucose of more than 200 mg/dL in a nonstressed, ambulatory subject supports the diagnosis of Diabetes Mellitus. ADA recommended reference range Performed By: #### C MP, UA, LIPID, TSH3, CBC, URMACRERAT, LILLIANA, FE and TIBC #### [address] Potassium [Moles/Vol] 4.3 mmol/L Normal 3.5-5.1 [facility] Comment on above: Performed By: #### C MP, UA, LIPID, TSH3, CBC, URMACRERAT, LILLIANA, FE and TIBC #### [address] Protein [Mass/Vol] 6.3 g/dL Low 6.4-8.9 [facility] Comment on above: Performed By: #### C MP, UA, LIPID, TSH3, CBC, URMACRERAT, LILLIANA, FE and TIBC #### [address] Sodium [Moles/Vol] 140 mmol/L Normal 136-145 [facility] Comment on above: Performed By: #### C MP, UA, LIPID, TSH3, CBC, URMACRERAT, LILLIANA, FE and TIBC #### [address] Urea nitrogen [Mass/Vol] 14 mg/dL Normal 7-25 [facility] Comment on above: Performed By: #### C MP, UA, LIPID, TSH3, CBC, URMACRERAT, LILLIANA, FE and TIBC #### [address] [place] [address] [facility] Cort[facility]on 08-03-2024 Cortisol 3.3 ug/dL Normal [facility] Comment on above: Result Comment: Refe rence range: AM 6 - 24 ug/dl PM <10 ug/dl [facility] it desktop support specialist and method: ViroolEL DXI, POLYCLONAL ANTIBODY CORTISOL ASSAY. Performed By: #### C MP, UA, LIPID, TSH3, CBC, URMACRERAT, LILLIANA, FE and TIBC #### [facility] [address] [place] [id number] [facility] Cortisol [Mass/volume] in Se rum or PlasmaOrdered By: Melissa Evanston on 08-03-2024 Cortisol [Mass/Vol] Random cortisol measurement [facility] Comment on above: [facility] it desktop support specialist and method:KAREN UNICEL DXI, POLYCLONAL ANTIBODY CORTISOL ASSAY.Reference range: AM 6 - 24 ug/dl PM <10 ug/dl Creatinine [Mass/volume] in Serum or PlasmaOrdered By: Melissa Coon on 08-03-2024 Creatinine [Mass/Vol] Creatinine [Mass/v olume] in Serum or Plasma Low 0.60-1.20 [facility] Eosinophils Auto (Bld) [#/Vo l]Ordered By: Melissa Evanston on 08-03-2024 Eosinophils (Bld) [#/Vol] Automated eosinophil count 0.0-0.45 [facility] Eosinophils/100 WBC Auto (Bl d)Ordered By: Melissa Evanston on 08-03-2024 Eosinophils/100 WBC (Bld) Automated eosinophil % . [facility] Erythrocyte distribution wid th Auto (RBC) [Ratio]Ordered By: Melissa Coon on 08-03-2024 Erythrocyte distribution width (RBC) [Ratio] Erythrocyte distribution width [Ratio] by Automated count 11.9-15.3 [facility] Estradiolon 08-03-2024 Estradiol <5.0 Normal . [facility] Comment on above: Result Comment: Adul t Female Range Follicular phase 12.5 - 166.0 Ovulation phase 85.8 - 498.0 Luteal phase 43.8 - 211.0 Postmenopausal <6.0 - 54.7 1st trimester 215.0 - >4300.0 [place] ECLIA methodology Performed at: [facility] [place] [id number] [employer]ator Attendant: Ramirez Ca PhD, Phone: [phone] PERFORMED BY: [place] [address] PATHOLOGIST [employer] RECORDS CLERK SYLVIA CRUZ M.D. Performed By: #### C MP, UA, LIPID, TSH3, CBC, URMACRERAT, LILLIANA, FE and TIBC #### [address] Ferritinon 08-03-2024 Ferritin [Mass/Vol] 100.7 ng/mL Normal 11.0-306.8 [facility] Comment on above: Performed By: #### C MP, UA, LIPID, TSH3, CBC, URMACRERAT, LILLIANA, FE and TIBC #### [address] Ferritin [Mass/volume] in Se rum or PlasmaOrdered By: Melissa Coon on 08-03-2024 Ferritin [Mass/Vol] Ferritin [Mass/volum e] in Serum or Plasma 11.0-306.8 [facility] Follicle Stimulating Hormone on 08-03-2024 Follicle Stimulating Hormone 18.3 m[iU]/mL Normal [facility] Comment on above: Result Comment: FEMA LE NORMALS (PREMENOPAUSE) MID-FOLLICULAR PHASE: 3.9-8.8 mIU/mL MID-CYCLE PEAK: 4.5-22.5 mIU/mL MID-LUTEAL PHASE: 1.8-5.1 mIU/mL FEMALE NORMALS (POSTMENOPAUSE): 16.7-113.6 mIU/mL MALE NORMALS: 1.3-19.3 mIU/mL Performed By: #### C MP, UA, LIPID, TSH3, CBC, URMACRERAT, LILLIANA, FE and TIBC #### [address] Follitropin [Units/volume] i n Serum or PlasmaOrdered By: Melissa Coon on 08-03-2024 Follitropin Qn Follitropin [Units/v olume] in Serum or Plasma [facility] Comment on above: FEMALE NORMALS (GERHARD ENOPAUSE) MID-FOLLICULAR PHASE: 3.9-8.8 mIU/mL MID-CYCLE PEAK: 4.5-22.5 mIU/mL MID-LUTEAL PHASE: 1.8-5.1 mIU/mLFEMALE NORMALS (POSTMENOPAUSE): 16.7-113.6 mIU/mLMALE NORMALS: 1.3-19.3 mIU/mL Globulin Calc (S) [Mass/Vol] Ordered By: Melissa Coon on 08-03-2024 Globulin (S) [Mass/Vol] Serum globulin measurement by calculation (mass/volume) [facility] Glucose [Mass/volume] in Ser um or PlasmaOrdered By: Melissa Coon on 08-03-2024 Glucose [Mass/Vol] Glucose [Mass/volume ] in Serum or Plasma 70-100 [facility] Comment on above: ADA recommended refe rence rangeRandom Glucose Reference Range is dependent on time and content of last meal. Glucose of more than 200 mg/dL in a nonstressed, ambulatory subject supports the diagnosis of Diabetes Mellitus. Hematocrit Auto (Bld) [Volum e fraction]Ordered By: Melissa Coon on 08-03-2024 Hematocrit (Bld) [Volume fraction] Hematocrit [Volume Fraction] of Blood by Automated count 34.0-46.4 [facility] Hemoglobin [Mass/volume] in BloodOrdered By: Melissa Coon on 08-03-2024 Hemoglobin (Bld) [Mass/Vol] Hemoglobin [Mass/volume] in Blood 11.8-15.4 [facility] Iron [Mass/volume] in Serum or PlasmaOrdered By: Melissa Coon on 08-03-2024 Iron [Mass/Vol] Iron [Mass/volume] i n Serum or Plasma 50-212 [facility] Iron and TIBC Profileon % Iron Saturation 17.3 % Low 20-50 [facility] Comment on above: Performed By: #### C MP, UA, LIPID, TSH3, CBC, URMACRERAT, LILLIANA, FE and TIBC #### [facility] [address] Iron [Mass/Vol] 64 ug/dL Normal 50-212 [facility] Comment on above: Performed By: #### C MP, UA, LIPID, TSH3, CBC, URMACRERAT, LILLIANA, FE and TIBC #### [facility] [address] Total Iron Binding Capacity 371 ug/dL Normal 255-450 [facility] Comment on above: Performed By: #### C MP, UA, LIPID, TSH3, CBC, URMACRERAT, LILLIANA, FE and TIBC #### [facility] [address] Transferrin [Mass/Vol] 265 mg/dL Normal 203-362 [facility] Comment on above: Performed By: #### C MP, UA, LIPID, TSH3, CBC, URMACRERAT, LILLIANA, FE and TIBC #### [facility] [address] Leukocytes [#/volume] correc emily for nucleated erythrocytes in Blood by Automated counOrdered By: Melissa Coon on 08-03-2024 WBC corrected for nucl RBC Auto (Bld) [#/Vol] Leukocytes [#/volume] corrected for nucleated erythrocytes in Blood by Automated coun High 3.8-11.6 [facility] Luteinizing Hormoneon 2024 Luteinizing Hormone 29.5 m[iU]/mL Normal . [facility] Comment on above: Result Comment: Adul t Female Range Follicular phase 2.4 - 12.6 Ovulation phase 14.0 - 95.6 Luteal phase 1.0 - 11.4 Postmenopausal 7.7 - 58.5 Performed By: #### C MP, UA, LIPID, TSH3, CBC, URMACRERAT, LILLIANA, FE and TIBC #### [facility] [address] Lymphocytes Auto (Bld) [#/Vo l]Ordered By: Melissa Coon on 08-03-2024 Lymphocytes (Bld) [#/Vol] Lymphocytes [#/volume] in Blood by Automated count 1.00-4.8 [facility] Lymphocytes/100 WBC Auto (Bl d)Ordered By: Melissa Coon on 08-03-2024 Lymphocytes/100 WBC (Bld) Lymphocytes/100 leukocytes in Blood by Automated count . [facility] MCH Auto (RBC) [Entitic mass ]Ordered By: Melissa Coon on 08-03-2024 MCH (RBC) [Entitic mass] MCH [Entitic mass] by Automated count 24.7-34.3 [facility] MCHC Auto (RBC) [Mass/Vol]Or dered By: Melissa Coon on 08-03-2024 MCHC (RBC) [Mass/Vol] MCHC [Mass/volume] by Automated count 32.0-35.0 [facility] MCV Auto (RBC) [Entitic vol] Ordered By: Melissa Coon on 08-03-2024 MCV (RBC) [Entitic vol] MCV [Entitic volume] by Automated count 80-100 [facility] Magnesiumon 08-03-2024 Magnesium [Mass/Vol] 1.9 mg/dL Normal 1.9-2.7 [facility] Comment on above: Performed By: #### C MP, UA, LIPID, TSH3, CBC, URMACRERAT, LILLIANA, FE and TIBC #### [address] Magnesium [Mass/volume] in S zakia or PlasmaOrdered By: Melissa Coon on 08-03-2024 Magnesium [Mass/Vol] Magnesium [Mass/vol ume] in Serum or Plasma 1.9-2.7 [facility] Monocytes Auto (Bld) [#/Vol] Ordered By: Melissa Coon on 08-03-2024 Monocytes (Bld) [#/Vol] Automated blood monocyte count 0.0-0.8 [facility] Monocytes/100 WBC Auto (Bld) Ordered By: Melissa Coon on 08-03-2024 Monocytes/100 WBC (Bld) Automated monocyte % . [facility] Neutrophils Auto (Bld) [#/Vo l]Ordered By: Melissa Coon on 08-03-2024 Neutrophils (Bld) [#/Vol] Neutrophils [#/volume] in Blood by Automated count High 1.8-7.7 [facility] Neutrophils/100 WBC Auto (Bl d)Ordered By: Melissa Coon on 08-03-2024 Neutrophils/100 WBC (Bld) Automated neutrophil % . [facility] No Panel InformationOrdered By: Melissa Coon on 08-03-2024 Estimated GFR (CKD-EPI) > 60.0 mL/Min [facility] Creatinine Clearance (Chem N/A [facility] Nucleated erythrocytes [Pres ence] in Blood by Automated countOrdered By: Melissa Coon on 08-03-2024 Nucleated RBC Auto Ql (Bld) Nucleated erythrocytes [Presence] in Blood by Automated count 0-0.5 [facility] Parathyrin.intact [Mass/volu me] in Serum or PlasmaOrdered By: Melissa Coon on 08-03-2024 Parathyrin.intact [Mass/Vol] Parathyrin.intact [Mass/volume] in Serum or Plasma [facility] Parathyroid Hormone Intacton 08-03-2024 Parathyroid Hormone Intact 48.1 pg/mL Normal [facility] Comment on above: Result Comment: PERF ORMED BY: [place] [address] PATHOLOGIST [employer] RECORDS CLERK SYLVIA CRUZ M.D. Performed By: #### C MP, UA, LIPID, TSH3, CBC, URMACRERAT, LILLIANA, FE and TIBC #### [address] Platelet mean volume Auto (B ld) [Entitic vol]Ordered By: Melissa Coon on 08-03-2024 Platelet mean volume (Bld) [Entitic vol] Platelet mean volume [Entitic volume] in Blood by Automated count 6.3-10.7 [facility] Platelets Auto (Bld) [#/Vol] Ordered By: Melissa Coon on 08-03-2024 Platelets (Bld) [#/Vol] Platelets [#/volume] in Blood by Automated count 150-450 [facility] Potassium [Moles/volume] in Serum or PlasmaOrdered By: Melissa Coon on 08-03-2024 Potassium [Moles/Vol] Potassium [Moles/v olume] in Serum or Plasma 3.5-5.1 [facility] Protein [Mass/volume] in Ser um or PlasmaOrdered By: Melissa Coon on 08-03-2024 Protein [Mass/Vol] Protein [Mass/volume ] in Serum or Plasma Low 6.4-8.9 [facility] RBC Auto (Bld) [#/Vol]Ordere d By: Melissa Coon on 08-03-2024 RBC (Bld) [#/Vol] Erythrocytes [#/volu me] in Blood by Automated count 3.60-5.00 [facility] Serum or plasma albumin/glob ulin mass ratioOrdered By: Melissa Coon on 08-03-2024 Albumin/Globulin [Mass ratio] Serum or plasma albumin/globulin mass ratio [facility] Serum or plasma anion gap de terminationOrdered By: Melissa Coon on 08-03-2024 Anion gap [Moles/Vol] Serum or plasma an ion gap determination 6.0-15.0 [facility] Serum or plasma estradiol (E 2) measurement (mass/volume)Ordered By: Melissa Coon on 08-03-2024 E2 [Mass/Vol] Serum or plasma estr adiol (E2) measurement (mass/volume) . [facility] Comment on above: Adult Female Range F ollicular phase 12.5 - 166.0 Ovulation phase 85.8 - 498.0 Luteal phase 43.8 - 211.0 Postmenopausal <6.0 - 54.7 1st trimester 215.0 - >4300.0Roche ECLIA methodologyPerformed at: [employer] [facility] [place] [id number] Director: Ramirez Ca PhD, Phone: [phone] Serum or plasma iron binding capacity measurement (mass/volume)Ordered By: Melissa Coon on 08-03-2024 Iron binding capacity [Mass/Vol] Iron binding capacity [Mass/volume] in Serum or Plasma 255-450 [facility] Serum or plasma iron saturat ion measurement (mass fraction)Ordered By: Melissa Coon on 08-03-2024 Iron saturation [Mass fraction] Iron saturation [Mass Fraction] in Serum or Plasma Low 20-50 [facility] Serum or plasma lutropin lisa surement (units/volume)Ordered By: Melissa Coon on 08-03-2024 Lutropin Qn Serum or plasma lutr opin measurement (units/volume) . [facility] Comment on above: Adult Female Range F ollicular phase 2.4 - 12.6 Ovulation phase 14.0 - 95.6 Luteal phase 1.0 - 11.4 Postmenopausal 7.7 - 58.5 Sodium [Moles/volume] in Ser um or PlasmaOrdered By: Melissa Coon on 08-03-2024 Sodium [Moles/Vol] Sodium [Moles/volume ] in Serum or Plasma 136-145 [facility] Thyroid Stimulating Hormoneo n 08-03-2024 TSH Qn 6.81 m[IU]/L High 0.45-5.33 [facility] Comment on above: Performed By: #### C MP, UA, LIPID, TSH3, CBC, URMACRERAT, LILLIANA, FE and TIBC #### [facility] [address] [place] [id number] [facility] Thyrotropin [Units/volume] i n Serum or PlasmaOrdered By: Melissa Coon on 08-03-2024 TSH Qn Thyrotropin [Units/v olume] in Serum or Plasma High 0.45-5.33 [facility] Transferrin [Mass/volume] in Serum or PlasmaOrdered By: Melissa Coon on 08-03-2024 Transferrin [Mass/Vol] Transferrin [Mass/volume] in Serum or Plasma 203-362 [facility] Urea nitrogen [Mass/volume] in Serum or PlasmaOrdered By: [facility] on 08-03-2024 Urea nitrogen [Mass/Vol] Urea nitrogen [Mass/volume] in Serum or Plasma 7-25 [facility] Vitamin D 25 Hydroxy Totalon 08-03-2024 Vitamin D 25 Hydroxy Total 51.5 ng/mL Normal 30-100 [facility] Comment on above: Result Comment: QASIM MIN D STATUS 25(OH)VITAMIN D RANGE (ng/mL) Deficient <20 Insufficient 20 to <30 Sufficient 30 to 100 Reference: Kirby MF,Adonay NC, Shantelle HOLLOWAY, et al. Evaluation,treatment, and prevention of vitamin D deficiency; an Endocrine Society clinical practice guideline. JCEM. 2010; 96(7):1911-30. PERFORMED BY: [facility] [address] [place] [address] PATHOLOGIST [employer]OR[employer] CLERK SYLVIA CRUZ M.D. Performed By: #### C MP, UA, LIPID, TSH3, CBC, URMACRERAT, LILLIANA, FE and TIBC #### [facility] [address] [place] [address] [facility] Vitamin D+Metabolites [Mass/ volume] in Serum or PlasmaOrdered By: Melissa Coon on 08-03-2024 Vitamin D+Metabolites [Mass/Vol] Vitamin D+Metabolites [Mass/volume] in Serum or Plasma 30-100 [facility] Comment on above: VITAMIN D STATUS 25( OH)VITAMIN D RANGE (ng/mL) Deficient <20 Insufficient 20 to <30Sufficient 30 to 100Reference: Kirby MF,Adonay INMAN, Shantelle HOLLOWAY, et al. Evaluation,treatment, and prevention of vitamin D deficiency; an Endocrine Society clinical practice guideline. JCEM. 2010; 96(7):1911-30. WBC Auto (Bld) [#/Vol]Ordere d By: Melissa Coon on 08-03-2024 WBC (Bld) [#/Vol] Leukocytes [#/volume ] in Blood by Automated count High 3.8-11.6 [facility] XR pre/post mri xrayon 06-19 XR pre/post mri xray [facility] Main [place] [address] [place] [id number] MRI Report Signed Patient: Lupe Pickard MR#: [id number] : 1975 Acct:[id number] Age/Sex: 49 / F ADM Date: 06/18/24 Loc: [facility] Room: Type: [facility] Attending Dr: Willian Jensen MD Copies to: Willian Jensen MD Ordering Provider: Wlilian Jensen MD Date of Service: 06/18/24 MR/MR lumbar spine wo con: M48.062 ([id number]) XR/XR pre/post mri xray: M48.062 MRI Lumbar Spine withoutcontrast TECHNIQUE: Multiplanar T1 and T2-weighted imaging of lumbar spine obtained without contrast. HISTORY: Mid to lower back pain. COMPARISON: 04/17/2020 The last fully segmented vertebral pair is operationally defined as L5/S1. POST SURGERY CHANGES: None BONE MARROW INFILTRATION: None BONE MARROW EDEMA: None BONY ALIGNMENT: Adequate bony alignment identified. SPINAL CANAL: No significant central canal narrowing. LUMBAR FRACTURE: None BONY LESIONS: Small L1 and T12 vertebral body hemangiomas. KIDNEYS: No hydronephrosis is identified. AORTA: No aortic aneurysm is seen. CONUS MEDULLARIS : The distal spinal cord is in adequate position without abnormality. Additional findings CONJOINED NERVE ROOT: None Lower thoracic level: Unremarkable L1-2 :Unremarkable L2-3: Unremarkable L3-4: Unremarkable L4-5: Mild diffuse disc bulge. Flattening of anterior thecal sac. Patent central canal. Posterior element hypertrophy. Patent neural foramen. Similar findings L5-S1: Mild spondylosis. Diffuse a disc bulge. Flattening of anterior thecal sac. Patent central canal. Mild posterior element hypertrophy. Mild bilateral neural foraminal narrowing similar findings MR/MR lumbar spine wo con IMPRESSION: Similar L4-5 and L5-S1 mild to moderate discovertebral degenerative changes. Pre-MRI plain film assessment: 2 views lumbar spine adequate lumbar lordosis. 3 mm L4-5 anterolisthesis Mild L5-S1 spondylosis. Lower lumbar hypertrophic facet changes. No acute fracture Impression dictated by: Rao Gresham M.D.06/19/2024 10:29 AM Dictation Location: [place] [address] Transcribed By: [facility] 06/19/24 1029 Dictated By: Rao Gresham DO 06/19/24 1022 Signed By: 06/19/24 1029 Normal [facility] Heart and Vascular Office/Cl [facility] Noteon 05-22-2024 Heart and Vascular Office/Clinic Note Heart and Vascular Office/Clinic Note Chief Complaint 6 mo f/u palps History of Present Illness Patient is a very pleasant 49-year-old obese nondiabetic female with a history of fibromyalgia, GERD, former smoker, quit more than 30 years ago, who was initially referred for palpitations. Patient was originally referred to [facility] with Dr. Benjamin; at her initial appointment, she provided several printouts including a 30-day [...] I diastolic dysfunction unable to quantitate RVSP. She had issues with hypertension, as well. Her prior cardiac workup is listed below. She was seen by Dr. Herman in June 2023. She presents today with no new symptoms. At the moment of my encounter, reports no feelings of racing heart or palpitations. She was on Ozempic for a while, and after initiation, her palpitations did recur and disappear after discontinuation of that. Review of Systems PHQ Score Initial Depression Screen Score: 0 SCORE ROS - Provider Constitutional: no fever, no chills, no fatigue Skin:no rash, no lesions ENMT: no ear pain, no sore throat, no congestion. Respiratory: no shortness of breath, no cough, no wheezing. Cardiovascular: no chest pain, no palpitations, no edema. Gastrointestinal: no nausea, no vomiting, no diarrhea, no GI bleeding. Genitourinary: no dysuria, no frequencyno hematuria Musculoskeletal: no back pain, no trauma. Neurologic: no headache, no dizziness, no numbness, no weakness. Psychiatric: no sleeping problems, no irritability, no mood swings/depression. Heme/Lymph: no bleeding tendency, no bruising tendency, no petechiae, Allergy/Immuno logic: no seasonal allergies, no food allergies, no recurrent infections Physical Exam Vitals & Measurements HR: 80(Peripheral) RR: 16 BP: 152/100 SpO2: 99% HT: 66 in HT: 167 cm WT: 124.8 kg WT: 275.137 lb BMI: 44.75 General: alert, no acute distress Neck: Supple, noJVD nocarotid bruit Cardiovascular: regular rate and rhythm, no murmur normal peripheral perfusion Respiratory: Lungs CTAB, respirations non labored Extremities: no edema left lower extremity. no edema right lower extremity Neurological: oriented x 4, LOC appropriate for age, speech normal Skin: Warm, dry, intact- no rash or concerning lesions Procedure Patient underwent a stress test on 01/24/2023 with the following results: (01/24/2023 14:18 EDT NM Myocardial Spect Multi Stress) CONCLUSIONS: Negative treadmill nuclear stress test. Overall low risk stress. [1] In addition patient underwent a event monitor on 04/06/2023 with the following results: CONCLUSIONS: Relatively benign appearing event monitor. Occasional premature ventricular contraction. Clinical correlation suggested [1] Assessment/Plan 1. Hypertension (I10: Essential (primary) hypertension) Blood pressure is elevated. I am going to start losartan 50 mg daily. BMP in a week. The patient states that she had a sleep study last year which was unremarkable. 2. Palpitations (R00.2: Palpitations) Resolved. Might have been in the setting of thyroid disturbances. No evidence of malignant ventricular arrhythmias or atrial fibrillation. Follow-up No qualifying data available 1 month for blood pressure recheck Problem List/Past Medical History Ongoing Abdominal weakness Anemia Anxiety Atopic dermatitis BMI 40.0-44.9, adult Butterfly rash Chronic bilateral low back pain Chronic insomnia Chronic neck pain Degenerative disc disease, thoracic Diffuse arthralgia Encounter for screening for autism Exercise counseling Family history of autism Fibromyalgia Flu syndrome GERD (gastroesophageal reflux disease) Medication management Moderate recurrent major depression Morbid obesity Nutritional counseling Other specified hypothyroidism Overactive bladder Palpitations Panic attack Poor posture Post-surgical hypothyroidism Rib pain on left side Rotator cuff injury Shoulder pain Smoker Somatic dysfunction of abdominal region Somatic dysfunction of cervical region Somatic dysfunction of head region Somatic dysfunction of lower extremities Somatic dysfunction of lumbar region Somatic dysfunction of rib cage region Somatic dysfunction of sacral spine Somatic dysfunction of thoracic region Spasm of cervical paraspinous muscle Spasm of lumbar paraspinous muscle Stress at home Symptomatic PVCs Trapezius muscle spasm Vitamin D deficiency Historical Hypervitaminosis D Smoker Procedure/Surgical History Epidural injection of anesthetic substance, therapeutic, caudal, continuous (10/10/2023), Injection of therapeutic forman (more content not included)... Normal [facility] Comment on above: Result Comment: Elec tronically Signed By: Trudy PELAYO, Eldon Nguyen\.br\Date and Time Signed: 05/22/24 10:40 EST Influenza virus B Ag [Presen ce] in Upper respiratory specimen by Rapid immunoassayon 05-14-2024 FLUBV Ag IA.rapid Ql (Nph) Influenza virus B Ag [Presence] in Upper respiratory specimen by Rapid immunoassay [facility] No Panel Informationon 05-14 Influenza Type A (Rapid) Negative [facility] POC SARS CoV-2 Antigen Negative [facility] No Panel InformationOrdered By: Selina Lomas on 05-14-2024 Quick Strep (POC) [facility] Quick Strep (POC) [facility] Thyrotropin [Units/volume] i n Serum or PlasmaOrdered By: Kenyetta Dove on 02-21-2024 TSH Qn 4.01 m[IU]/L Normal 0.45-5.33 [facility] Comment on above: Result Comment: PERF ORMED BY: [place] [address] PATHOLOGIST [employer]OR[employer] CLERK WENDY CLARK M.D. Performed By: #### C MP, UA, LIPID, TSH3, CBC, URMACRERAT, LILLIANA, FE and TIBC #### [place] [address] [place] Thyroxine (T4) free [Mass/vo lume] in Serum or PlasmaOrdered By: Kenyetta Dove on 02-21-2024 Free T4 [Mass/Vol] 1.10 ng/dL Normal 0.61-1.12 [facility] Comment on above: Performed By: #### C MP, UA, LIPID, TSH3, CBC, URMACRERAT, LILLIANA, FE and TIBC #### [facility] [address] [place] [address] [place] Triiodothyronine (T3) Freeon 02-21-2024 Triiodothyronine (T3) Free 3.20 pg/mL Normal 2.50-3.90 [facility] Comment on above: Result Comment: PERF ORMED BY: [place] [address] PATHOLOGIST [employer]OR[employer] CLERK WENDY CLARK M.D. Performed By: #### C MP, UA, LIPID, TSH3, CBC, URMACRERAT, LILLIANA, FE and TIBC #### [place] [address] [place] Triiodothyronine (T3) Free [ Mass/volume] in Serum or PlasmaOrdered By: Kenyetta Dove on 02-21-2024 Free T3 [Mass/Vol] 3.20 pg/mL 2.50-3.90 [facility] Alanine aminotransferase [En zymatic activity/volume] in Serum or PlasmaOrdered By: Dalia Dennis on 02-01-2024 ALT [Catalytic activity/Vol] 12 U/L Normal 7-52 [facility] Comment on above: Performed By: #### C MP, UA, LIPID, TSH3, CBC, URMACRERAT, LILLIANA, FE and TIBC #### [facility] [address] [place] [address] Albumin [Mass/volume] in Ser um or Plasma by Bromocresol green (BCG) dye binding methoOrdered By: Dalia Dennis on 02-01-2024 Albumin BCG dye [Mass/Vol] 3.8 g/dL 3.5-5.7 [facility] Alkaline phosphatase [Enzyma tic activity/volume] in Serum or PlasmaOrdered By: Dalia Dennis on 02-01-2024 ALP [Catalytic activity/Vol] 52 U/L Normal 34-104 [facility] Comment on above: Performed By: #### C MP, UA, LIPID, TSH3, CBC, URMACRERAT, LILLIANA, FE and TIBC #### [address] Aspartate aminotransferase [ Enzymatic activity/volume] in Serum or PlasmaOrdered By: Dalia Dennis on 02-01-2024 AST [Catalytic activity/Vol] 11 U/L Low 13-39 [facility] Comment on above: Performed By: #### C MP, UA, LIPID, TSH3, CBC, URMACRERAT, LILLIANA, FE and TIBC #### [address] Automated basophil %Ordered By: Dalia Dennis on 02-01-2024 Basophils/100 WBC (Bld) 0.5 % Normal . [facility] Comment on above: Performed By: #### C MP, UA, LIPID, TSH3, CBC, URMACRERAT, LILLIANA, FE and TIBC #### [facility] [address] [place] [address] Automated basophil countOrde red By: Dalia Dennis on 02-01-2024 Basophils (Bld) [#/Vol] 0.0 10*3/uL Normal 0.0-0.2 [facility] Comment on above: Result Comment: PERF ORMED BY: [place] [address] PATHOLOGIST [employer]OR[employer] CLERK WENDY CLARK M.D. Performed By: #### C MP, UA, LIPID, TSH3, CBC, URMACRERAT, LILLIANA, FE and TIBC #### [address] Automated blood monocyte cou ntOrdered By: Dalia Dennis on 02-01-2024 Monocytes (Bld) [#/Vol] 0.4 10*3/uL Normal 0.0-0.8 [facility] Comment on above: Performed By: #### C MP, UA, LIPID, TSH3, CBC, URMACRERAT, LILLIANA, FE and TIBC #### [address] Automated eosinophil %Ordere d By: Dalia Dennis on 02-01-2024 Eosinophils/100 WBC (Bld) 1.3 % Normal . [facility] Comment on above: Performed By: #### C MP, UA, LIPID, TSH3, CBC, URMACRERAT, LILLIANA, FE and TIBC #### [address] Automated eosinophil countOr dered By: Dalia Dennis on 02-01-2024 Eosinophils (Bld) [#/Vol] 0.1 10*3/uL Normal 0.0-0.45 [facility] Comment on above: Performed By: #### C MP, UA, LIPID, TSH3, CBC, URMACRERAT, LILLIANA, FE and TIBC #### [address] Automated monocyte %Ordered By: Dalia Dennis on 02-01-2024 Monocytes/100 WBC (Bld) 4.8 % Normal . [facility] Comment on above: Performed By: #### C MP, UA, LIPID, TSH3, CBC, URMACRERAT, LILLIANA, FE and TIBC #### [address] Automated neutrophil %Ordere d By: Dalia Dennis on 02-01-2024 Neutrophils/100 WBC (Bld) 65.3 % Normal . [facility] Comment on above: Performed By: #### C MP, UA, LIPID, TSH3, CBC, URMACRERAT, LILLIANA, FE and TIBC #### [facility] [address] Bilirubin Test strip Ql (U)O rdered By: Dalia Dennis on 02-01-2024 Bilirubin Ql (U) Negative Negative [facility] Bilirubin.total [Mass/volume ] in Serum or PlasmaOrdered By: Dalia Dennis on 02-01-2024 Bilirubin [Mass/Vol] 0.5 mg/dL Normal 0.3-1.0 [facility] Comment on above: Performed By: #### C MP, UA, LIPID, TSH3, CBC, URMACRERAT, LILLIANA, FE and TIBC #### [facility] [address] CBC W Auto Differential pane l (Bld)on 02-01-2024 Basophils (Bld) [#/Vol] 0.0 10*3/uL 0.0 - 0.2 10*3/uL [facility] Basophils/100 WBC Manual cnt (Syn fld) 0.5 % . [facility] Eosinophils (Bld) [#/Vol] 0.1 10*3/uL 0.0 - 0.45 10*3/uL [facility] Eosinophils/100 WBC Manual cnt (Syn fld) 1.3 % . [facility] Erythrocyte distribution width (RBC) [Ratio] 14.6 % 11.9 - 15.3 % [facility] Hematocrit (Bld) [Volume fraction] 39.2 % 34.0 - 46.4 % [facility] Hemoglobin (Bld) [Mass/Vol] 13.3 g/dL 11.8 - 15.4 g/dL [facility] Lymphocytes (Bld) [#/Vol] 2.6 10*3/uL 1.00 - 4.8 10*3/uL [facility] Lymphocytes/100 WBC Manual cnt (Syn fld) 28.1 % . [facility] MCH (RBC) [Entitic mass] 30.7 pg 24.7 - 34.3 pg [facility] MCHC (RBC) [Mass/Vol] 34.0 g/dL 32.0 - 35.0 g/dL [facility] MCV (RBC) [Entitic vol] 90.1 fL 80 - 100 fL [facility] Monocytes (Bld) [#/Vol] 0.4 10*3/uL 0.0 - 0.8 10*3/uL [facility] Monocytes+Macrophages /100 WBC Manual cnt (Syn fld) 4.8 % . [facility] Neutrophils (Bld) [#/Vol] 6.0 10*3/uL 1.8 - 7.7 10*3/uL [facility] Neutrophils/100 WBC Manual cnt (Syn fld) 65.3 % . [facility] NRBC 0.1 /100{WBC} 0 - 0.5 /100{WBC} [facility] Platelet mean volume (Bld) [Entitic vol] 8.7 fL 6.3 - 10.7 fL [facility] Platelets (Bld) [#/Vol] 288 10*3/uL 150 - 450 10*3/uL [facility] RBC LM.HPF (Urine sed) [#/Area] 4.34 /[HPF] 3.60 - 5.00 [facility] WBC (Bld) [#/Vol] 9.2 10*3/uL 3.8 - 11.6 10*3/uL [facility] WBC LM.HPF (Urine sed) [#/Area] 9.2 10*3/uL 3.8 - 11.6 10*3/uL [facility] Calcium [Mass/volume] in Ser um or PlasmaOrdered By: Dalia Dennis on 02-01-2024 Calcium [Mass/Vol] 8.5 mg/dL Low 8.6-10.3 [facility] Comment on above: Performed By: #### C MP, UA, LIPID, TSH3, CBC, URMACRERAT, LILLIANA, FE and TIBC #### [facility] [address] [place] [address] Carbon dioxide, total [Moles /volume] in Serum or PlasmaOrdered By: Dalia Dennis on 02-01-2024 CO2 [Moles/Vol] 27.8 mmol/L Normal 21.0-31.0 [facility] Comment on above: Performed By: #### C MP, UA, LIPID, TSH3, CBC, URMACRERAT, LILLIANA, FE and TIBC #### [facility] [address] [place] [address] [place] Chloride [Moles/volume] in S zakia or PlasmaOrdered By: Dalia Dennis on 02-01-2024 Chloride [Moles/Vol] 104 mmol/L Normal 98-107 [facility] Comment on above: Performed By: #### C MP, UA, LIPID, TSH3, CBC, URMACRERAT, LILLIANA, FE and TIBC #### [facility] [address] [place] [address] [place] Cholesterol [Mass/volume] in Serum or PlasmaOrdered By: Dalia Dennis on 02-01-2024 Cholesterol [Mass/Vol] 163 mg/dL Normal 140-200 [facility] Comment on above: Chol less than 200 m g/dl low riskChol 201-239 mg/dl borderline riskChol 240 mg/dl and greater high risk Result Comment: Chol less than 200 mg/dl low risk Chol 201-239 mg/dl borderline risk Chol 240 mg/dl and greater high risk Performed By: #### C MP, UA, LIPID, TSH3, CBC, URMACRERAT, LILLIANA, FE and TIBC #### [facility] [address] [place] [address] [place] Cholesterol in LDL Calc [Mas s/Vol]Ordered By: Dalia Dennis on 02-01-2024 Cholesterol in LDL [Mass/Vol] 88 mg/dL 0-100 [facility] Comment on above: LDL ATP III CLASSIFI CATIONLDL less than 100 mg/dL OptimalLDL 100-129 mg/dL Near or above optimalLDL 130-159 mg/dL Borderline highLDL 160-189 mg/dL HighLDL greater than 189 mg/dL Very high Cholesterol in VLDL Calc [Ma ss/Vol]Ordered By: Dlaia Dennis on 02-01-2024 Cholesterol in VLDL [Mass/Vol] 35 mg/dL [facility] Color of Urine by AutoOrdere d By: Dalia Dennis on 02-01-2024 Color (U) Light-yellow Normal Yellow [facility] Comment on above: Order Comment: Name Collection Type:: Clean-Voided Midstream Performed By: #### C MP, UA, LIPID, TSH3, CBC, URMACRERAT, LILLIANA, FE and TIBC #### [address] Complete Blood Count Auto Di ffon 02-01-2024 Mean Corpuscular HGB Conc 34.0 g/dL Normal 32.0-35.0 [facility] Comment on above: Performed By: #### C MP, UA, LIPID, TSH3, CBC, URMACRERAT, LILLIANA, FE and TIBC #### [address] NRBC% 0.1 /100{WBC} Normal 0-0.5 [facility] Comment on above: Performed By: #### C MP, UA, LIPID, TSH3, CBC, URMACRERAT, LILLIANA, FE and TIBC #### [address] Comprehensive Metabolic Pane soniya 02-01-2024 Albumin [Mass/Vol] 3.8 g/dL Normal 3.5-5.7 [facility] Comment on above: Performed By: #### C MP, UA, LIPID, TSH3, CBC, URMACRERAT, LILLIANA, FE and TIBC #### [address] GFR/1.73 sq M.predicted MDRD (S/P/Bld) [Vol rate/Area] mL/min/{1.73_m2} Normal [facility] Comment on above: Performed By: #### C MP, UA, LIPID, TSH3, CBC, URMACRERAT, LILLIANA, FE and TIBC #### [address] Creatinine [Mass/volume] in Serum or PlasmaOrdered By: Dalia Dennis on 02-01-2024 Creatinine [Mass/Vol] 0.50 mg/dL Low 0.60-1.20 [facility] Comment on above: Performed By: #### C MP, UA, LIPID, TSH3, CBC, URMACRERAT, LILLIANA, FE and TIBC #### [facility] [address] [place] [address] [place] Creatinine [Mass/volume] in UrineOrdered By: Dalia Dennis on 02-01-2024 Creatinine (U) [Mass/Vol] 74.00 mg/dL [facility] Comment on above: No reference range e stablished Erythrocyte distribution wid th [Ratio] by Automated countOrdered By: Dalia Dennis on 02-01-2024 Erythrocyte distribution width (RBC) [Ratio] 14.6 % Normal 11.9-15.3 [facility] Comment on above: Performed By: #### C MP, UA, LIPID, TSH3, CBC, URMACRERAT, LILLIANA, FE and TIBC #### [facility] [address] [place] [address] [place] Erythrocytes [#/volume] in B lood by Automated countOrdered By: Dalia Dennis on 02-01-2024 RBC (Bld) [#/Vol] 4.34 10*6/uL Normal 3.60-5.00 [facility] [facility] Comment on above: Performed By: #### C MP, UA, LIPID, TSH3, CBC, URMACRERAT, LILLIANA, FE and TIBC #### [facility] [address] [place] [address] [place] Ferritin [Mass/volume] in Se rum or PlasmaOrdered By: Dalia Dennis on 02-01-2024 Ferritin [Mass/Vol] 52.8 ng/mL Normal 11.0-306.8 [facility] Comment on above: Performed By: #### C MP, UA, LIPID, TSH3, CBC, URMACRERAT, LILLIANA, FE and TIBC #### [facility] [address] [place] [address] [place] Glucose [Mass/volume] in Ser um or PlasmaOrdered By: Dalia Dennis on 02-01-2024 Glucose [Mass/Vol] 108 mg/dL High 70-100 [facility] Comment on above: ADA recommended refe rence rangeRandom Glucose Reference Range is dependent on time and content of last meal. Glucose of more than 200 mg/dL in a nonstressed, ambulatory subject supports the diagnosis of Diabetes Mellitus. Result Comment: [facility] Glucose Reference Range is dependent on time and content of last meal. Glucose of more than 200 mg/dL in a nonstressed, ambulatory subject supports the diagnosis of Diabetes Mellitus. ADA recommended reference range Performed By: #### C MP, UA, LIPID, TSH3, CBC, URMACRERAT, LILLIANA, FE and TIBC #### [facility] [address] Glucose [Mass/volume] in Uri ne by Test stripOrdered By: Dalia Dennis on 02-01-2024 Glucose Test strip (U) [Mass/Vol] Normal mg/dL Normal [facility] Hematocrit [Volume Fraction] of Blood by Automated countOrdered By: Dalia Dennis on 02-01-2024 Hematocrit (Bld) [Volume fraction] 39.2 % Normal 34.0-46.4 [facility] Comment on above: Performed By: #### C MP, UA, LIPID, TSH3, CBC, URMACRERAT, LILLIANA, FE and TIBC #### [facility] [address] [place] [address] Hemoglobin Test strip Ql (U) Ordered By: Dalia Dennis on 02-01-2024 Hemoglobin Ql (U) Negative Negative [facility] Hemoglobin [Mass/volume] in BloodOrdered By: Dalia Dennis on 02-01-2024 Hemoglobin (Bld) [Mass/Vol] 13.3 g/dL Normal 11.8-15.4 [facility] Comment on above: Performed By: #### C MP, UA, LIPID, TSH3, CBC, URMACRERAT, LILLIANA, FE and TIBC #### [facility] [address] [place] [address] Iron [Mass/volume] in Serum or PlasmaOrdered By: Dalia Dennis on 02-01-2024 Iron [Mass/Vol] 88 ug/dL Normal 50-212 [facility] Comment on above: Performed By: #### C MP, UA, LIPID, TSH3, CBC, URMACRERAT, LILLIANA, FE and TIBC #### [facility] [address] Iron and TIBC Profileon % Iron Saturation 26.4 % Normal 20-50 [facility] Comment on above: Performed By: #### C MP, UA, LIPID, TSH3, CBC, URMACRERAT, LILLIANA, FE and TIBC #### [facility] [address] Total Iron Binding Capacity 333 ug/dL Normal 255-450 [facility] Comment on above: Performed By: #### C MP, UA, LIPID, TSH3, CBC, URMACRERAT, LILLIANA, FE and TIBC #### [facility] [address] Iron binding capacity [Mass/ volume] in Serum or PlasmaOrdered By: Dalia Dennis on 02-01-2024 Iron binding capacity [Mass/Vol] 333 ug/dL 255-450 [facility] Iron saturation [Mass Fracti on] in Serum or PlasmaOrdered By: Dalia Dennis on 02-01-2024 Iron saturation [Mass fraction] 26.4 % 20-50 [facility] Ketones [Presence] in Urine by Test stripOrdered By: Dalia Dennis on 02-01-2024 Ketones Ql (U) Negative Normal Negative [facility] Comment on above: Order Comment: Name Collection Type:: Clean-Voided Midstream Performed By: #### C MP, UA, LIPID, TSH3, CBC, URMACRERAT, LILLIANA, FE and TIBC #### [address] Leukocyte esterase [Presence ] in Urine by Test stripOrdered By: Dalia Dennis on 02-01-2024 Leukocyte esterase Test strip Ql (U) Negative Normal Negative [facility] Comment on above: Order Comment: Name Collection Type:: Clean-Voided Midstream Performed By: #### C MP, UA, LIPID, TSH3, CBC, URMACRERAT, LILLIANA, FE and TIBC #### [facility] [address] [place] [address] [place] Leukocytes [#/volume] correc emily for nucleated erythrocytes in Blood by Automated counOrdered By: Dalia Dennis on 02-01-2024 WBC corrected for nucl RBC Auto (Bld) [#/Vol] 9.2 10*3/uL 3.8-11.6 [facility] Leukocytes [#/volume] in Blo od by Automated countOrdered By: Dalia Dennis on 02-01-2024 WBC (Bld) [#/Vol] 9.2 10*3/uL Normal 3.8-11.6 [facility] Comment on above: Performed By: #### C MP, UA, LIPID, TSH3, CBC, URMACRERAT, LILLIANA, FE and TIBC #### [facility] [address] Lipid Panelon 02-01-2024 LDL Cholesterol,Calculate d 88 mg/dL Normal 0-100 [facility] Comment on above: Result Comment: LDL ATP III CLASSIFICATION LDL less than 100 mg/dL Optimal LDL 100-129 mg/dL Near or above optimal LDL 130-159 mg/dL Borderline high LDL 160-189 mg/dL High LDL greater than 189 mg/dL Very high Performed By: #### C MP, UA, LIPID, TSH3, CBC, URMACRERAT, LILLIANA, FE and TIBC #### [address] Triglyceride w/Reflex 176 mg/dL High 0-149 [facility] Comment on above: Result Comment: TRIG ATP III CLASSIFICATION TRIG less than 150 mg/dL Normal TRIG 150-199 mg/dL Borderline high TRIG 200-500 mg/dL High TRIG greater than 500 mg/dL Very high Standard traceable to the Center for Disease Conrtrol and Prevention (CDC) test method. Performed By: #### C MP, UA, LIPID, TSH3, CBC, URMACRERAT, LILLIANA, FE and TIBC #### [facility] [address] VLDL CHOLESTEROL 35 mg/dL Normal [facility] Comment on above: Performed By: #### C MP, UA, LIPID, TSH3, CBC, URMACRERAT, LILLIANA, FE and TIBC #### [address] Lymphocytes [#/volume] in Bl ood by Automated countOrdered By: Dalia Dennis on 02-01-2024 Lymphocytes (Bld) [#/Vol] 2.6 10*3/uL Normal 1.00-4.8 [facility] Comment on above: Performed By: #### C MP, UA, LIPID, TSH3, CBC, URMACRERAT, LILLIANA, FE and TIBC #### [address] Lymphocytes/100 leukocytes i n Blood by Automated countOrdered By: Dalia Dennis on 02-01-2024 Lymphocytes/100 WBC (Bld) 28.1 % Normal . [facility] Comment on above: Performed By: #### C MP, UA, LIPID, TSH3, CBC, URMACRERAT, LILLIANA, FE and TIBC #### [address] MCH [Entitic mass] by Automa emily countOrdered By: Dalia Dennis on 02-01-2024 MCH (RBC) [Entitic mass] 30.7 pg Normal 24.7-34.3 [facility] Comment on above: Performed By: #### C MP, UA, LIPID, TSH3, CBC, URMACRERAT, LILLIANA, FE and TIBC #### [address] MCHC Auto (RBC) [Mass/Vol]Or dered By: Dalia Dennis on 02-01-2024 MCHC (RBC) [Mass/Vol] 34.0 g/dL 32.0-35.0 [facility] MCV [Entitic volume] by Auto mated countOrdered By: Dalia Dennis on 02-01-2024 MCV (RBC) [Entitic vol] 90.1 fL Normal 80-100 [facility] Comment on above: Performed By: #### C MP, UA, LIPID, TSH3, CBC, URMACRERAT, LILLIANA, FE and TIBC #### [place] [address] [place] MicroAlb Creat Ratio,Uon Creatinine, Urine (Random) 74.00 mg/dL Normal [facility] Comment on above: Result Comment: No r eference range established Performed By: #### C MP, UA, LIPID, TSH3, CBC, URMACRERAT, LILLIANA, FE and TIBC #### [facility] [address] Microalbumin/Creatini ne Ratio Not performed Normal 0.0-30.0 [facility] Comment on above: Result Comment: PERF ORMED BY: [place] [address] PATHOLOGIST [employer] CLERK WENDY CLARK M.D. Performed By: #### C MP, UA, LIPID, TSH3, CBC, URMACRERAT, LILLIANA, FE and TIBC #### [facility] [address] Microalbumin [Mass/volume] i n UrineOrdered By: Dalia Dennis on 02-01-2024 Albumin DL <= 20 mg/L (U) [Mass/Vol] mg/dL Normal 0.0-1.8 [facility] Comment on above: Performed By: #### C MP, UA, LIPID, TSH3, CBC, URMACRERAT, LILLIANA, FE and TIBC #### [address] Microalbumin/Creatinine rati o panel (U)on 02-01-2024 Albumin [Mass/Vol] g/dL 0.0 - 1.8 [facility] Creatinine spec 2 (U) [Mass/Vol] 74.00 mg/dL [facility] Comment on above: No reference range e stablished MICROALBUMIN/CREATINI NE RATIO Not performed 0.0 - 30.0 [facility] Neutrophils [#/volume] in Bl ood by Automated countOrdered By: Dalia Dennis on 02-01-2024 Neutrophils (Bld) [#/Vol] 6.0 10*3/uL Normal 1.8-7.7 [facility] Comment on above: Performed By: #### C MP, UA, LIPID, TSH3, CBC, URMACRERAT, LILLIANA, FE and TIBC #### [facility] [address] Nitrite Test strip Ql (U)Ord ered By: Dalia Dennis on 02-01-2024 Nitrite Ql (U) Negative Negative [facility] No Panel InformationOrdered By: Dalia Dennis on 02-01-2024 Estimated GFR (CKD-EPI) > 60.0 mL/Min [facility] Creatinine Clearance (Chem N/A [facility] Nucleated erythrocytes [Pres ence] in Blood by Automated countOrdered By: Dalia Dennis on 02-01-2024 Nucleated RBC Auto Ql (Bld) 0.1 /100{WBC} 0-0.5 [facility] Platelet mean volume [Entiti c volume] in Blood by Automated countOrdered By: Dalia Dennis on 02-01-2024 Platelet mean volume (Bld) [Entitic vol] 8.7 fL Normal 6.3-10.7 [facility] Comment on above: Performed By: #### C MP, UA, LIPID, TSH3, CBC, URMACRERAT, LILLIANA, FE and TIBC #### [facility] [address] Platelets [#/volume] in Bloo d by Automated countOrdered By: Dalia Dennis on 02-01-2024 Platelets (Bld) [#/Vol] 288 10*3/uL Normal 150-450 [facility] Comment on above: Performed By: #### C MP, UA, LIPID, TSH3, CBC, URMACRERAT, LILLIANA, FE and TIBC #### [facility] [address] Potassium [Moles/volume] in Serum or PlasmaOrdered By: Dalia Dennis on 02-01-2024 Potassium [Moles/Vol] 4.3 mmol/L Normal 3.5-5.1 [facility] Comment on above: Performed By: #### C MP, UA, LIPID, TSH3, CBC, URMACRERAT, LILLIANA, FE and TIBC #### [facility] [address] Protein Test strip (U) [Mass /Vol]Ordered By: Dalia Dennis on 02-01-2024 Protein (U) [Mass/Vol] Negative Negative [facility] Protein [Mass/volume] in Ser um or PlasmaOrdered By: Dalia Dennis on 02-01-2024 Protein [Mass/Vol] 6.0 g/dL Low 6.4-8.9 [facility] Comment on above: Performed By: #### C MP, UA, LIPID, TSH3, CBC, URMACRERAT, LILLIANA, FE and TIBC #### [facility] [address] [place] [address] Serum globulin measurement b y calculation (mass/volume)Ordered By: Dalia Dennis on 02-01-2024 Globulin (S) [Mass/Vol] 2.2 g/dL Normal [facility] Comment on above: Performed By: #### C MP, UA, LIPID, TSH3, CBC, URMACRERAT, LILLIANA, FE and TIBC #### [facility] [address] [place] [address] Serum or plasma albumin/glob ulin mass ratioOrdered By: Dalia Dennis on 02-01-2024 Albumin/Globulin [Mass ratio] 1.7 {ratio} [facility] Comment on above: Performed By: #### C MP, UA, LIPID, TSH3, CBC, URMACRERAT, LILLIANA, FE and TIBC #### [facility] [address] [place] [address] Serum or plasma anion gap de terminationOrdered By: Dalia Dennis on 02-01-2024 Anion gap [Moles/Vol] 10.5 mmol/L Normal 6.0-15.0 [facility] Comment on above: Performed By: #### C MP, UA, LIPID, TSH3, CBC, URMACRERAT, LILLIANA, FE and TIBC #### [facility] [address] [place] [address] Serum or plasma high density lipoprotein (HDL) cholesterol measurementOrdered By: Dalia Dennis on 02-01-2024 Cholesterol in HDL [Mass/Vol] 40 mg/dL Normal 23-92 [facility] Comment on above: HDL CHOL ATP-III CLA SSIFICATION Cardiovascular RiskHDL > or equal to 60 mg/dL LOWHDL < 40 mg/dL HIGH Result Comment: HDL CHOL ATP-III CLASSIFICATION Cardiovascular Risk HDL > or equal to 60 mg/dL LOW HDL < 40 mg/dL HIGH Performed By: #### C MP, UA, LIPID, TSH3, CBC, URMACRERAT, LILLIANA, FE and TIBC #### [facility] [address] Serum or plasma total choles terol/high density lipoprotein (HDL) cholesterol mass ratOrdered By: Dalia Dennis on 02-01-2024 Cholesterol.total/Cho lesterol in HDL [Mass ratio] 4.1 {ratio} Normal <5.0 [facility] Comment on above: Performed By: #### C MP, UA, LIPID, TSH3, CBC, URMACRERAT, LILLIANA, FE and TIBC #### [facility] [address] Sodium [Moles/volume] in Ser um or PlasmaOrdered By: Dalia Dennis on 02-01-2024 Sodium [Moles/Vol] 138 mmol/L Normal 136-145 [facility] Comment on above: Performed By: #### C MP, UA, LIPID, TSH3, CBC, URMACRERAT, LILLIANA, FE and TIBC #### [facility] [address] Specific gravity Test strip (U) [Rel density]Ordered By: Dalia Dennis on 02-01-2024 Specific gravity (U) [Rel density] 1.016 1.001-1.03 0 [facility] Thyrotropin [Units/volume] i n Serum or PlasmaOrdered By: Dalia Dennis on 02-01-2024 TSH Qn 1.71 m[IU]/L Normal 0.45-5.33 [facility] Comment on above: Result Comment: PERF ORMED BY: [facility] [address] [place] [address] PATHOLOGIST [employer] CLERK WENDY CLARK M.D. Performed By: #### C MP, UA, LIPID, TSH3, CBC, URMACRERAT, LILLIANA, FE and TIBC #### [facility] [address] Transferrin [Mass/volume] in Serum or PlasmaOrdered By: Dalia Dennis on 02-01-2024 Transferrin [Mass/Vol] 238 mg/dL Normal 203-362 [facility] Comment on above: Performed By: #### C MP, UA, LIPID, TSH3, CBC, URMACRERAT, LILLIANA, FE and TIBC #### [facility] [address] Triglyceride [Mass/volume] i n Serum or PlasmaOrdered By: Dalia Dennis on 02-01-2024 Triglyceride [Mass/Vol] 176 mg/dL High 0-149 [facility] Comment on above: TRIG ATP III CLASSIF ICATIONTRIG less than 150 mg/dL NormalTRIG 150-199 mg/dL Borderline highTRIG 200-500 mg/dL High TRIG greater than 500 mg/dL Very highStandard traceable to the Center for Disease Conrtrol and Prevention (CDC) test method. Urea nitrogen [Mass/volume] in Serum or PlasmaOrdered By: Dalia Dennis on 02-01-2024 Urea nitrogen [Mass/Vol] 10 mg/dL Normal 7-25 [facility] Comment on above: Performed By: #### C MP, UA, LIPID, TSH3, CBC, URMACRERAT, LILLIANA, FE and TIBC #### [facility] [address] Urinalysison 02-01-2024 Bilirubin,Urine Negative Normal Negative [facility] Comment on above: Order Comment: Name Collection Type:: Clean-Voided Midstream Performed By: #### C MP, UA, LIPID, TSH3, CBC, URMACRERAT, LILLIANA, FE and TIBC #### [facility] [address] Glucose Ql (U) Normal Normal Normal [facility] Comment on above: Order Comment: Name Collection Type:: Clean-Voided Midstream Performed By: #### C MP, UA, LIPID, TSH3, CBC, URMACRERAT, LILLIANA, FE and TIBC #### [place] [address] [place] Nitrite,Urine Negative Normal Negative [facility] Comment on above: Order Comment: Name Collection Type:: Clean-Voided Midstream Performed By: #### C MP, UA, LIPID, TSH3, CBC, URMACRERAT, LILLIANA, FE and TIBC #### [address] Occult Blood,Urine Negative Normal Negative [facility] Comment on above: Order Comment: Name Collection Type:: Clean-Voided Midstream Result Comment: PERF ORMED BY: [place] [address] PATHOLOGIST [employer] CLERK WENDY CLARK M.D. Performed By: #### C MP, UA, LIPID, TSH3, CBC, URMACRERAT, LILLIANA, FE and TIBC #### [place] [address] [place] Protein,Urine Negative Normal Negative [facility] Comment on above: Order Comment: Name Collection Type:: Clean-Voided Midstream Performed By: #### C MP, UA, LIPID, TSH3, CBC, URMACRERAT, LILLIANA, FE and TIBC #### [address] Specificy [place],Urine 1.016 Normal 1.001-1.03 0 [facility] Comment on above: Order Comment: Name Collection Type:: Clean-Voided Midstream Performed By: #### C MP, UA, LIPID, TSH3, CBC, URMACRERAT, LILLIANA, FE and TIBC #### [place] [address] [place] Urobilinogen,Urine Normal Normal Normal [facility] Comment on above: Order Comment: Name Collection Type:: Clean-Voided Midstream Performed By: #### C MP, UA, LIPID, TSH3, CBC, URMACRERAT, LILLIANA, FE and TIBC #### [facility] [address] Urinalysis, manual onlyon Appearance (U) Clear Clear [facility] BILIRUBIN,URINE Negative Negative [facility] Color (U) Light-Yellow Yellow [facility] Glucose Ql (U) Normal Normal [facility] Ketones Ql (U) Negative Negative [facility] Leukocyte esterase Test strip Ql (U) Negative Negative [facility] NITRITE,URINE Negative Negative [facility] OCCULT BLOOD,URINE Negative Negative [facility] pH (U) 6.0 [pH] 5.0 - 9.0 [facility] PROTEIN,URINE Negative Negative [facility] SPECIFICY GRAVITY,URINE 1.016 1.001 - 1.030 [facility] UROBILINOGEN,URINE Normal Normal [facility] Name Collection Type :: Clean-Voided Midstream [facility] Urine appearanceOrdered By: Dalia Dennis on 02-01-2024 Appearance (U) Clear Normal Clear [facility] Comment on above: Order Comment: Name Collection Type:: Clean-Voided Midstream Performed By: #### C MP, UA, LIPID, TSH3, CBC, URMACRERAT, LILLIANA, FE and TIBC #### [facility] [address] Urine microalbumin/creatinin e mass ratioOrdered By: Dalia Dennis on 02-01-2024 Albumin/Creatinine DL <= 20 mg/L (U) [Mass ratio] [facility] Comment on above: Test not performed Urobilinogen Test strip (U) [Mass/Vol]Ordered By: Dalia Dennis on 02-01-2024 Urobilinogen (U) [Mass/Vol] Normal mg/dL Normal [facility] pH of Urine by Test stripOrd ered By: Dalia Dennis on 02-01-2024 pH (U) 6.0 [pH] Normal 5.0-9.0 [facility] Comment on above: Order Comment: Name Collection Type:: Clean-Voided Midstream Performed By: #### C MP, UA, LIPID, TSH3, CBC, URMACRERAT, LILLIANA, FE and TIBC #### [facility] [address] [place] [id number] [facility] mammo BI w/CADo n 01-20-2024 MM screening mammo BI w/CAD [facility] Main [place] [address] [place] [id number] Mammography Report Signed Patient: Lupe Pickard MR#: [id number] : 1975 Acct:[id number] Age/Sex: 48 / F ADM Date: 01/20/24 Loc: [place] Room: Type: [facility] Attending Dr: Referral Self Copies to: Melissa [...] Rao Gresham M.D.01/20/2024 2:37 PM Dictation Location: [facility] Transcribed By: [facility] 01/20/24 1437 Dictated By: Rao Gresham DO 01/20/24 143 Signed By: 01/20/24 143 Normal [facility] No Panel InformationOrdered By: Selina Lomas on 12-05-2023 COVID Antigen (POC) [facility] Ferritin [Mass/volume] in Se rum or PlasmaOrdered By: Melissa Singh on 07-28-2023 Ferritin [Mass/Vol] 180.6 ng/mL 11.0-306.8 [facility] Folate [Mass/volume] in Seru m or PlasmaOrdered By: Melissa Singh on 07-28-2023 Folate [Mass/Vol] 43.0 ng/mL >5.9 [facility] Comment on above: Folate reference ran ge: >5.9 ng/mlThe WHO technical consultation on folate and vitamin [id number] has determined that folate concentrations lessthan 4 ng/ml are considered deficient. Iron [Mass/volume] in Serum or PlasmaOrdered By: Melisas Singh on 07-28-2023 Iron [Mass/Vol] 100 ug/dL 50-212 [facility] Magnesium [Mass/volume] in S zakia or PlasmaOrdered By: Melissa Singh on 07-28-2023 Magnesium [Mass/Vol] 2.0 mg/dL 1.9-2.7 [facility] Thyrotropin [Units/volume] i n Serum or PlasmaOrdered By: Melissa Singh on 07-28-2023 TSH Qn 1.20 m[IU]/L 0.45-5.33 [facility] Vitamin B12 ser/plasOrdered By: Melissa iSngh on 07-28-2023 Cobalamin (Vitamin B12) [Mass/Vol] 432 pg/mL 180-914 [facility] Vitamin D+Metabolites [Mass/ volume] in Serum or PlasmaOrdered By: Melissa Singh on 07-28-2023 Vitamin D+Metabolites [Mass/Vol] 32.9 ng/mL 30-100 [facility] Comment on above: VITAMIN D STATUS 25( [place])VITAMIN D RANGE (ng/mL) Deficient <20 Insufficient 20 to <30Sufficient 30 to 100Reference: Kirby MF,Adonay NC, Shantelle HOLLOWAY, et al. Evaluation,treatment, and prevention of vitamin D deficiency; an Endocrine Society clinical practice guideline. JCEM. 2010; 96(7):1911-30. Activated partial thrombopla stin time (aPTT) in platelet poor plasma by coagulation aOrdered By: Jorge Jarrtet on 07-22-2023 aPTT Coag (PPP) [Time] 29.6 s 25.1-36.5 [facility] Comment on above: A hematocrit value g reater than 55% may lead to inaccurate results in coagulation testing. Patients having hematocrit values >55% require a special collection tube for coagulation studies. Please contact the laboratory at [phone] for redraw instructions. Bacterial blood cultureOrder ed By: Jorge Jarrett on 07-22-2023 Bacteria identified Cx Nom (Bld) NO GROWTH 5 DAYS [facility] Bacteria identified Cx Nom (Bld) NO GROWTH 5 DAYS [facility] Basophils Auto (Bld) [#/Vol] Ordered By: Jorge Jarrett on 07-22-2023 Basophils (Bld) [#/Vol] 0.1 10*3/uL 0.0-0.2 [facility] Basophils/100 WBC Auto (Bld) Ordered By: Jorge Jarrett on 07-22-2023 Basophils/100 WBC (Bld) 0.5 % . [facility] COVID CepheidOrdered By: Iris Jarrett on 07-22-2023 SARS-CoV-2 (COVID-19) Ab IA Ql Negative Negative [facility] Comment on above: This is a duplicate [employer] Xpert Xpress CoV-2/Flu/RSV Plus RNA by RT-PCR result to be used for statistical tracking purpose only. SARS-CoV-2 (COVID-19) RNA CESAR+probe Ql (Unsp spec) [facility] SARS-CoV-2 (COVID-19) RNA CESAR+probe Ql (Unsp spec) [facility] Calcium [Mass/volume] in Ser um or PlasmaOrdered By: Jorge Jarrett on 07-22-2023 Calcium [Mass/Vol] 8.7 mg/dL 8.6-10.3 [facility] Carbon dioxide, total [Moles /volume] in Serum or PlasmaOrdered By: Jorge Jarrett on 07-22-2023 CO2 [Moles/Vol] 24.1 mmol/L 21.0-31.0 [facility] Chloride [Moles/volume] in S zakia or PlasmaOrdered By: Jorge Jarrett on 07-22-2023 Chloride [Moles/Vol] 104 mmol/L 98-107 [facility] Creatine kinase [Enzymatic a ctivity/volume] in Serum or PlasmaOrdered By: Jorge Jarrett on 07-22-2023 CK [Catalytic activity/Vol] 37 U/L 30-223 [facility] Creatinine [Mass/volume] in Serum or PlasmaOrdered By: Jorge Jarrett on 07-22-2023 Creatinine [Mass/Vol] 0.52 mg/dL 0.60-1.20 [facility] Eosinophils Auto (Bld) [#/Vo l]Ordered By: Jorge Jarrett on 07-22-2023 Eosinophils (Bld) [#/Vol] 0.0 10*3/uL 0.0-0.45 [facility] Eosinophils/100 WBC Auto (Bl d)Ordered By: Jorge Jarrett on 07-22-2023 Eosinophils/100 WBC (Bld) 0.3 % . [facility] Erythrocyte distribution wid th Auto (RBC) [Ratio]Ordered By: Jorge Jarrett on 07-22-2023 Erythrocyte distribution width (RBC) [Ratio] 14.9 % 11.9-15.3 [facility] Glucose [Mass/volume] in Ser um or PlasmaOrdered By: Jorge Jarrett on 07-22-2023 Glucose [Mass/Vol] 97 mg/dL 70-100 [facility] Comment on above: ADA recommended refe rence rangeRandom Glucose Reference Range is dependent on time and content of last meal. Glucose of more than 200 mg/dL in a nonstressed, ambulatory subject supports the diagnosis of Diabetes Mellitus. Hematocrit Auto (Bld) [Volum e fraction]Ordered By: Jorge Jarrett on 07-22-2023 Hematocrit (Bld) [Volume fraction] 41.0 % 34.0-46.4 [facility] Hemoglobin [Mass/volume] in BloodOrdered By: Jorge Jarrett 07-22-2023 Hemoglobin (Bld) [Mass/Vol] 13.8 g/dL 11.8-15.4 [facility] INR in Platelet poor plasma by Coagulation assayOrdered By: Jorge Jarrett on 07-22-2023 INR Coag (PPP) [Relative time] 1.0 {INR} [facility] Comment on above: INR Therapeutic Rang [...] [Moles/volume] in Se rum or PlasmaOrdered By: Jorge Jarrett on 07-22-2023 Lactate [Moles/Vol] 1.3 mmol/L 0.5-2.2 [facility] Leukocytes [#/volume] correc emily for nucleated erythrocytes in Blood by Automated counOrdered By: Jorge Jarrett on 07-22-2023 WBC corrected for nucl RBC Auto (Bld) [#/Vol] 9.9 10*3/uL 3.8-11.6 [facility] Lymphocytes Auto (Bld) [#/Vo l]Ordered By: oJrge Jarrett on 07-22-2023 Lymphocytes (Bld) [#/Vol] 0.9 10*3/uL 1.00-4.8 [facility] Lymphocytes/100 WBC Auto (Bl d)Ordered By: Jorge Jarrett on 07-22-2023 Lymphocytes/100 WBC (Bld) 8.7 % . [facility] MCH Auto (RBC) [Entitic mass ]Ordered By: Jorge Jarrett on 07-22-2023 MCH (RBC) [Entitic mass] 29.7 pg 24.7-34.3 [facility] MCHC Auto (RBC) [Mass/Vol]Or dered By: Jorge Jarrett on 07-22-2023 MCHC (RBC) [Mass/Vol] 33.7 g/dL 32.0-35.0 [facility] MCV Auto (RBC) [Entitic vol] Ordered By: Jorge Jarrett on 07-22-2023 MCV (RBC) [Entitic vol] 88.2 fL 80-100 [facility] Monocyte distribution width [Entitic volume] in Blood by AutomatedOrdered By: Jorge Jarrett on 07-22-2023 Monocyte distribution width Auto (Bld) [Entitic vol] 27.10 % 0.00-20.00 [facility] Comment on above: For adults in ED, MD W > 20.0 may be associated with a higher risk of sepsis during the first 12 hrs of hospital admission Monocytes Auto (Bld) [#/Vol] Ordered By: Jorge Jarrett on 07-22-2023 Monocytes (Bld) [#/Vol] 0.6 10*3/uL 0.0-0.8 [facility] Monocytes/100 WBC Auto (Bld) Ordered By: Jorge Jarrett on 07-22-2023 Monocytes/100 WBC (Bld) 6.2 % . [facility] Natriuretic peptide B [Mass/ Vol]Ordered By: Jorge Jarrett on 07-22-2023 Natriuretic peptide B (Bld) [Mass/Vol] 67.0 pg/mL 5-100 [facility] Neutrophils Auto (Bld) [#/Vo l]Ordered By: Jorge Jarrett on 07-22-2023 Neutrophils (Bld) [#/Vol] 8.3 10*3/uL 1.8-7.7 [facility] Neutrophils/100 WBC Auto (Bl d)Ordered By: Jorge Jarrett on 07-22-2023 Neutrophils/100 WBC (Bld) 84.3 % . [facility] No Panel InformationOrdered By: Jorge Jarrett on 07-22-2023 Estimated GFR (CKD-EPI) > 60.0 mL/Min [facility] Creatinine Clearance (Chem 184.90 [facility] Nucleated erythrocytes [Pres ence] in Blood by Automated countOrdered By: Jorge Jarrett on 07-22-2023 Nucleated RBC Auto Ql (Bld) 0.0 /100{WBC} 0-0.5 [facility] Platelet mean volume Auto (B ld) [Entitic vol]Ordered By: Jorge Jarrett on 07-22-2023 Platelet mean volume (Bld) [Entitic vol] 7.7 fL 6.3-10.7 [facility] Platelets Auto (Bld) [#/Vol] Ordered By: Jorge Jarrett on 07-22-2023 Platelets (Bld) [#/Vol] 347 10*3/uL 150-450 [facility] Potassium [Moles/volume] in Serum or PlasmaOrdered By: Jorge Jarrett on 07-22-2023 Potassium [Moles/Vol] 3.6 mmol/L 3.5-5.1 [facility] Prothrombin time (PT)Ordered By: Jorge Jarrett on 07-22-2023 PT Coag (PPP) [Time] 11.6 s 9.0-12.9 [facility] Comment on above: A hematocrit value g reater than 55% may lead to inaccurate results in coagulation testing. Patients having hematocrit values >55% require a special collection tube for coagulation studies. Please contact the laboratory at [phone] for redraw instructions. RBC Auto (Bld) [#/Vol]Ordere d By: Jorge Jarrett on 07-22-2023 RBC (Bld) [#/Vol] 4.64 10*6/uL 3.60-5.00 [facility] Serum or plasma anion gap de terminationOrdered By: Jorge Jarrett on 07-22-2023 Anion gap [Moles/Vol] 12.5 mmol/L 6.0-15.0 [facility] Sodium [Moles/volume] in Ser um or PlasmaOrdered By: Jorge Jarrett on 07-22-2023 Sodium [Moles/Vol] 137 mmol/L 136-145 [facility] Troponin I.cardiac [Mass/vol ume] in Serum or Plasma by Detection limit <= 0.01 ng/Ordered By: Jorge Jarrett on 07-22-2023 Troponin I.cardiac DL <= 0.01 ng/mL [Mass/Vol] < 2.3 pg/mL 0.0-15.0 [facility] Urea nitrogen [Mass/volume] in Serum or PlasmaOrdered By: Jorge Jarrett on 07-22-2023 Urea nitrogen [Mass/Vol] 6 mg/dL 7-25 [facility] WBC Auto (Bld) [#/Vol]Ordere d By: Jorge Jarrett on 07-22-2023 WBC (Bld) [#/Vol] 9.9 10*3/uL 3.8-11.6 [facility] CNPNon 07-08-2023 CNPN Telephone (RHEUMN) -- LUPE PICKARD ([id number]) 1975 F Date Time Provider Department 07/08/23 [...] 1 tablet by mouth every afternoon. - HYDROcodone-acetaminophen (NORCO) 5-325 mg per tablet TAKE [...] 10 mg tab Take by mouth. - Glucosamine-Chondroitin 500-400 mg tablet Take 1 tablet by mouth three times daily. - FE FUMARATE/CA CARB/VITAMIN D3 (ALWFXRG-PSKO3-YVINUPT FUMARATE ORAL) Take by mouth. - Multivitamin [...] crea - PROGESTERONE, BULK, MISC - Conj Estrog-Medroxyprogest Tyrel 0.3-1.5 mg per tablet Take 1 tablet by mouth once daily. - FOLIC ACID, BULK, MISC - metaxalone 800 mg tablet Take 800 mg by mouth three times daily. - CALCIUM CARBONATE/VITAMIN D3 (CALCIUM + D ORAL) Take by mouth. - CYANOCOBALAMIN/COBAMAMIDE (B12 SUBLINGUAL) Dissolve under the tongue. - [...] Status:Closed by STEPHIE BRAMBILA on 07/08/23 Normal [facility] COVID Quick Testingon 2023 Result Positive [employer] Other Quick Strepon 07-08-2023 S. pyogenes Org specific cx Ql (Throat) Positive [employer] Other Quick Strep [employer] Other CNPNon 05-24-2023 CNPN Telephone (RHEULN) -- LUPE PICKARD ([id number]) 1975 F Date Time Provider Department 05/24/23 [...] 1 tablet by mouth every afternoon. - HYDROcodone-acetaminophen (NORCO) 5-325 mg per tablet TAKE [...] 10 mg tab Take by mouth. - Glucosamine-Chondroitin 500-400 mg tablet Take 1 tablet by mouth three times daily. - FE FUMARATE/CA CARB/VITAMIN D3 (CCIBLUY-WJQQ7-ZQXBRAY FUMARATE ORAL) Take by mouth. - Multivitamin [...] crea - PROGESTERONE, BULK, MISC - Conj Estrog-Medroxyprogest Tyrel 0.3-1.5 mg per tablet Take 1 tablet by mouth once daily. - FOLIC ACID, BULK, MISC - metaxalone 800 mg tablet Take 800 mg by mouth three times daily. - CALCIUM CARBONATE/VITAMIN D3 (CALCIUM + D ORAL) Take by mouth. - CYANOCOBALAMIN/COBAMAMIDE (B12 SUBLINGUAL) Dissolve under the tongue. - [...] Status:Closed by STEPHIE BRAMBILA on 05/24/23 Normal [facility]23 Complement C3 [Mass/Vol] 128 mg/dL Normal 86-166 [facility] Comment on above: Order Comment: Nicky crawley Type: BLOOD SPECIMEN Ordering Facility: [facility] Address: [address] [place] [address] Performed By: #### V ITB6 #### [employer] [id number] [address] [place] [address] C4 SerPl-ncon 05-19-2023 Complement C4 [Mass/Vol] 32 mg/dL Normal 13-46 [facility] Comment on above: Order Comment: Nicky crawley Type: BLOOD SPECIMEN Ordering Facility: [facility] Address: [address] [place] [address] Performed By: #### V ITB6 #### [facility] CLIA [id number] [address] [place] [address] CBC W Auto Differential pane l (Bld)on 05-19-2023 Basophils (Bld) [#/Vol] 0.03 10*3/uL Normal <0.11 [facility] Comment on above: Order Comment: Nicky crawley Type: BLOOD SPECIMEN Ordering Facility: [facility] Address: [address] [place] [address] Performed By: #### V ITB6 #### [facility] CLIA [id number] [address] [place] [address] Basophils/100 WBC (Bld) 0.3 % Normal [facility] Comment on above: Order Comment: Speci men Type: BLOOD SPECIMEN Ordering Facility: [facility] Address: [address] [place] [address] Performed By: #### V ITB6 #### [facility] CLIA [id number] [address] [place] [address] Differential cell count method Nom (Bld) Auto Normal [facility] Comment on above: Order Comment: Speci men Type: BLOOD SPECIMEN Ordering Facility: [facility] Address: [address] [place] [address] Performed By: #### V ITB6 #### [facility] CLIA [id number] [address] [place] [address] Eosinophils (Bld) [#/Vol] 0.09 10*3/uL Normal <0.46 [facility] Comment on above: Order Comment: Speci men Type: BLOOD SPECIMEN Ordering Facility: [facility] Address: [address] [place] [address] Performed By: #### V ITB6 #### [facility] CLIA [id number] [address] [place] [address] Eosinophils/100 WBC (Bld) 0.8 % Normal [facility] Comment on above: Order Comment: Speci men Type: BLOOD SPECIMEN Ordering Facility: [facility] Address: [address] [place] [address] Performed By: #### V ITB6 #### [facility] CLIA [id number] [address] [place] [address] Erythrocyte distribution width (RBC) [Ratio] 14.7 % Normal 11.5-15.0 [facility] Comment on above: Order Comment: Speci men Type: BLOOD SPECIMEN Ordering Facility: [facility] Address: [address] [place] [address] Performed By: #### V ITB6 #### [facility] CLIA [id number] [address] [place] [address] Hematocrit (Bld) [Volume fraction] 42.6 % Normal 36.0-46.0 [facility] Comment on above: Order Comment: Speci men Type: BLOOD SPECIMEN Ordering Facility: [facility] Address: [address] [place] [address] Performed By: #### V ITB6 #### [facility] CLIA [id number] [address] [place] [address] Hemoglobin (Bld) [Mass/Vol] 14.2 g/dL Normal 11.5-15.5 [facility] Comment on above: Order Comment: Speci men Type: BLOOD SPECIMEN Ordering Facility: [facility] Address: [address] [place] [address] Performed By: #### V ITB6 #### [facility] CLIA [id number] [address] [place] [address] Immature granulocytes (Bld) [#/Vol] 0.04 10*3/uL Normal <0.10 [facility] Comment on above: Order Comment: Speci men Type: BLOOD SPECIMEN Ordering Facility: [facility] Address: [address] [place] [address] Performed By: #### V ITB6 #### [facility] CLIA [id number] [address] [place] [address] Immature granulocytes/100 WBC (Bld) 0.4 % Normal [facility] Comment on above: Order Comment: Speci men Type: BLOOD SPECIMEN Ordering Facility: [facility] Address: [address] [place] [address] Performed By: #### V ITB6 #### [facility] CLIA [id number] [address] [place] [address] Lymphocytes (Bld) [#/Vol] 3.03 10*3/uL Normal 1.00-4.00 [facility] Comment on above: Order Comment: Speci men Type: BLOOD SPECIMEN Ordering Facility: [facility] Address: [address] [place] [address] Performed By: #### V ITB6 #### [facility] CLIA [id number] [address] [place] [address] Lymphocytes/100 WBC (Bld) 28.3 % Normal [facility] Comment on above: Order Comment: Speci men Type: BLOOD SPECIMEN Ordering Facility: [facility] Address: [address] [place] [address] Performed By: #### V ITB6 #### [facility] CLIA [id number] [address] [place] [address] MCH (RBC) [Entitic mass] 29.2 pg Normal 26.0-34.0 [facility] Comment on above: Order Comment: Speci men Type: BLOOD SPECIMEN Ordering Facility: [facility] Address: [address] [place] [address] Performed By: #### V ITB6 #### [facility] CLIA [id number] [address] [place] [address] MCHC (RBC) [Mass/Vol] 33.3 g/dL Normal 30.5-36.0 [facility] Comment on above: Order Comment: Speci men Type: BLOOD SPECIMEN Ordering Facility: [facility] Address: [address] [place] [address] Performed By: #### V ITB6 #### [facility] [id number] [address] [place] [address] MCV (RBC) [Entitic vol] 87.5 fL Normal 80.0-100.0 [facility] Comment on above: Order Comment: Speci men Type: BLOOD SPECIMEN Ordering Facility: [facility] Address: [address] [place] [address] Performed By: #### V ITB6 #### [facility] IA [id number] [address] [place] [address] Monocytes (Bld) [#/Vol] 0.49 10*3/uL Normal <0.87 [facility] Comment on above: Order Comment: Speci men Type: BLOOD SPECIMEN Ordering Facility: [facility] Address: [address] [place] [address] Performed By: #### V ITB6 #### [facility] IA [id number] [address] [place] [address] Monocytes/100 WBC (Bld) 4.6 % Normal [facility] Comment on above: Order Comment: Speci men Type: BLOOD SPECIMEN Ordering Facility: [facility] Address: [address] [place] [address] Performed By: #### V ITB6 #### [facility] CLIA [id number] [address] [place] [address] Neutrophils (Bld) [#/Vol] 7.01 10*3/uL Normal 1.45-7.50 [facility] Comment on above: Order Comment: Speci men Type: BLOOD SPECIMEN Ordering Facility: [facility] Address: [address] [place] [address] Performed By: #### V ITB6 #### [facility] CLIA [id number] [address] [place] [address] Neutrophils/100 WBC (Bld) 65.6 % Normal [facility] Comment on above: Order Comment: Speci men Type: BLOOD SPECIMEN Ordering Facility: [facility] Address: [address] [place] [address] Performed By: #### V ITB6 #### [facility] CLIA [id number] [address] [place] [address] Nucleated RBC (Bld) [#/Vol] 10*3/uL Normal <0.01 [facility] Comment on above: Order Comment: Speci men Type: BLOOD SPECIMEN Ordering Facility: [facility] Address: [address] [place] [address] Performed By: #### V ITB6 #### [facility] CLIA [id number] [address] [place] [address] Nucleated RBC/100 WBC (Bld) [Ratio] 0.0 /100 WBC Normal [facility] Comment on above: Order Comment: Speci men Type: BLOOD SPECIMEN Ordering Facility: [facility] Address: [address] [place] [address] Performed By: #### V ITB6 #### [facility] CLIA [id number] [address] [place] [address] Platelet mean volume (Bld) [Entitic vol] 9.1 fL Normal 9.0-12.7 [facility] Comment on above: Order Comment: Speci men Type: BLOOD SPECIMEN Ordering Facility: [facility] Address: [address] [place] [address] Performed By: #### V ITB6 #### [facility] CLIA [id number] [address] [place] [address] Platelets (Bld) [#/Vol] 364 10*3/uL Normal 150-400 [facility] Comment on above: Order Comment: Speci men Type: BLOOD SPECIMEN Ordering Facility: [facility] Address: [address] [place] [address] Performed By: #### V ITB6 #### [facility] CLIA [id number] [address] [place] [address] RBC (Bld) [#/Vol] 4.87 10*6/uL Normal 3.90-5.20 [facility] Comment on above: Order Comment: Speci men Type: BLOOD SPECIMEN Ordering Facility: [facility] Address: [address] [place] [address] Performed By: #### V ITB6 #### [id number] [address] [place] [address] WBC (Bld) [#/Vol] 10.69 10*3/uL Normal 3.70-11.00 [facility] Comment on above: Order Comment: Speci men Type: BLOOD SPECIMEN Ordering Facility: [facility] Address: [address] [place] [address] Performed By: #### V ITB6 #### [facility] [id number] [address] [place] [address] Centromere Ab IF Ql (S)on Centromere Ab Qn (S) <0.2 Normal <1.0 [facility] Comment on above: Order Comment: Speci men Type: BLOOD SPECIMEN Ordering Facility: [facility] Address: [address] [place] [address] Result Comment: Anti -centromere antibody is used as in aid in diagnosis of systemic sclerosis. Clinical correlation is required. Test Methodology: Multiplex flow immunoassay. Performed By: #### 5 1775-5, 81651-7, 54257-6, 36611-3, 56851-2, 27979-6, 71912-0, 90593-5 #### [facility] CLIA [id number] [address] [facility] [id number] [address] [place] CENTROMERE AB QUAL Negative Normal Negative [facility] Comment on above: Order Comment: Speci men Type: BLOOD SPECIMEN Ordering Facility: [facility] Address: [address] [place] [address] Performed By: #### 5 1775-5, 87917-4, 91537-4, 83170-8, 15106-3, 62709-6, 34761-4, 54706-2 #### [facility] CLIA [id number] [address] [place] [address] [place] Chromatin Ab Qnon 05-19-2023 CHROMATIN AB QUAL Negative Normal Negative [facility] Comment on above: Order Comment: Speci men Type: BLOOD SPECIMEN Ordering Facility: [facility] Address: [address] [place] [address] Performed By: #### 5 1775-5, 58044-6, 10946-5, 84456-1, 20659-9, 51301-4, 13333-3, 57748-5 #### [facility] CLIA [id number] [address] [place] [address] [place] Chromatin Ab SerPl-aCncon Chromatin Ab Qn <0.2 Normal <1.0 [facility] Comment on above: Order Comment: Speci men Type: BLOOD SPECIMEN Ordering Facility: [facility] Address: [address] [place] [address] Result Comment: Test Methodology: Multiplex flow immunoassay. Performed By: #### 5 1775-5, 10231-4, 30231-1, 44374-1, 75094-3, 05605-1, 99012-7, 98449-8 #### [facility] CLIA [id number] [address] [place] [address] [place] Comprehensive metabolic 2000 panelon 05-19-2023 Albumin [Mass/Vol] 4.1 g/dL Normal 3.9-4.9 [facility] Comment on above: Order Comment: Speci men Type: BLOOD SPECIMEN Ordering Facility: [facility] Address: [address] [place] [address] Performed By: #### V ITB6 #### [facility] CLIA [id number] [address] [place] [address] ALP [Catalytic activity/Vol] 62 U/L Normal 34-123 [facility] Comment on above: Order Comment: Speci men Type: BLOOD SPECIMEN Ordering Facility: [facility] Address: [address] [place] [address] Performed By: #### V ITB6 #### [facility] CLIA [id number] [address] [place] [address] ALT [Catalytic activity/Vol] 19 U/L Normal 7-38 [facility] Comment on above: Order Comment: Speci men Type: BLOOD SPECIMEN Ordering Facility: [facility] Address: [address] [place] [address] Performed By: #### V ITB6 #### [facility] [id number] [address] [place] [address] Anion gap [Moles/Vol] 9 mmol/L Normal 9-18 [facility] Comment on above: Order Comment: Speci men Type: BLOOD SPECIMEN Ordering Facility: [facility] Address: [address] [place] [address] Performed By: #### V ITB6 #### [facility] CLIA [id number] [address] [place] [address] AST [Catalytic activity/Vol] 10 U/L Low 13-35 [facility] Comment on above: Order Comment: Speci men Type: BLOOD SPECIMEN Ordering Facility: [facility] Address: [address] [place] [address] Performed By: #### V ITB6 #### [facility] CLIA [id number] [address] [place] [address] Bilirubin [Mass/Vol] 0.2 mg/dL Normal 0.2-1.3 [facility] Comment on above: Order Comment: Speci men Type: BLOOD SPECIMEN Ordering Facility: [facility] Address: [address] [place] [address] Performed By: #### V ITB6 #### [facility] CLIA [id number] [address] [place] [address] Calcium [Mass/Vol] 9.2 mg/dL Normal 8.5-10.2 [facility] Comment on above: Order Comment: Speci men Type: BLOOD SPECIMEN Ordering Facility: [facility] Address: [address] [place] [address] Performed By: #### V ITB6 #### [facility] CLIA [id number] [address] [place] [address] Chloride [Moles/Vol] 106 mmol/L High 97-105 [facility] Comment on above: Order Comment: Speci men Type: BLOOD SPECIMEN Ordering Facility: [facility] Address: [address] [place] [address] Performed By: #### V ITB6 #### [facility] CLIA [id number] [address] [place] [address] CO2 [Moles/Vol] 27 mmol/L Normal 22-30 [facility] Comment on above: Order Comment: Speci men Type: BLOOD SPECIMEN Ordering Facility: [facility] Address: [address] [place] [address] Performed By: #### V ITB6 #### [facility] CLIA [id number] [address] [place] [address] Creatinine [Mass/Vol] 0.65 mg/dL Normal 0.58-0.96 [facility] Comment on above: Order Comment: Speci men Type: BLOOD SPECIMEN Ordering Facility: [facility] Address: [address] [place] [address] Performed By: #### V ITB6 #### [facility] CLIA [id number] [address] [place] [address] Creatinine and Glomerular filtration rate.predicted panel (S/P/Bld) 110 mL/min/1.73m??? Normal >=60 [facility] Comment on above: Order Comment: Speci men Type: BLOOD SPECIMEN Ordering Facility: [facility] Address: [address] [place] [address] Result Comment: Anne mated Glomerular Filtration Rate [...] Performed By: #### V ITB6 #### [facility] CLIA [id number] [address] [place] [address] Glucose [Mass/Vol] 105 mg/dL High 74-99 [facility] Comment on above: Order Comment: Nicky crawley Type: BLOOD SPECIMEN Ordering Facility: [facility] Address: [address] [place] [address] Result Comment: The [place] [employer] (ADA) provides guidance for cutoff [...] Standards of Medical Care in Diabetes 2016, [place] [employer]. Diabetes Care. 2016.39(Suppl 1). Performed By: #### V ITB6 #### [facility] CLIA [id number] [address] [place] [address] Potassium [Moles/Vol] 4.3 mmol/L Normal 3.7-5.1 [facility] Comment on above: Order Comment: Nicky crawley Type: BLOOD SPECIMEN Ordering Facility: [facility] Address: [address] [place] [address] Performed By: #### V ITB6 #### [facility] CLIA [id number] [address] [place] [address] Protein [Mass/Vol] 6.7 g/dL Normal 6.3-8.0 [facility] Comment on above: Order Comment: Nicky crawley Type: BLOOD SPECIMEN Ordering Facility: [facility] Address: [address] [place] [address] Performed By: #### V ITB6 #### [facility] CLIA [id number] [address] [place] [address] Sodium [Moles/Vol] 142 mmol/L Normal 136-144 [facility] Comment on above: Order Comment: Speci men Type: BLOOD SPECIMEN Ordering Facility: [facility] Address: [address] [place] [address] Performed By: #### V ITB6 #### [facility] CLIA [id number] [address] [place] [address] Urea nitrogen [Mass/Vol] 17 mg/dL Normal 7-21 [facility] Comment on above: Order Comment: Speci men Type: BLOOD SPECIMEN Ordering Facility: [facility] Address: [address] [place] [address] Performed By: #### V ITB6 #### [facility] [id number] [address] [place] [address] [facility] DNA ANTIBODY 25 IU/mL Normal <=200 [facility] [facility] Comment on above: Order Comment: Speci men Type: BLOOD SPECIMEN Ordering Facility: [facility] Address: [address] [place] [address] Performed By: #### V ITB6 #### [id number] [address] [place] [address] DNA ANTIBODY QUALITATIVE INTERPRETATION Negative Normal Negative [facility] Comment on above: Order Comment: Speci men Type: BLOOD SPECIMEN Ordering Facility: [facility] Address: [address] [place] [address] Performed By: #### V ITB6 #### [facility] [id number] [address] [place] [address] MARCIO Jo1 Ab Ser-aCncon 2022 Elsa-1 extractable nuclear Ab Qn (S) <0.2 Normal <1.0 [facility] Comment on above: Order Comment: Speci men Type: BLOOD SPECIMEN Ordering Facility: [facility] Address: [address] [place] [address] Performed By: #### 5 1775-5, 05234-7, 16878-1, 89282-1, 58764-1, 78110-4, 77287-8, 96811-3 #### [facility] CLIA [id number] [address] [place] [address] [place] MARCIO GEOSPATIAL DEVELOPER Ab Ser-aCncon 2022 Ribonucleoprotein extractable nuclear Ab Qn (S) <0.2 Normal <1.0 [facility] Comment on above: Order Comment: Speci men Type: BLOOD SPECIMEN Ordering Facility: [facility] Address: [address] [place] [address] Performed By: #### 5 1774-5, 24371-0, 64936-1, 57130-6, 02517-7, 34664-8, 52500-3, 41504-9 #### [facility] CLIA [id number] [address] [place] [address] [place] Ribonucleoprotein extractable nuclear Ab Qn (S) 0.2 AI Normal <1.0 [facility] Comment on above: Order Comment: Speci men Type: BLOOD SPECIMEN Ordering Facility: [facility] Address: [address] [place] [address] Performed By: #### V ITB6 #### [facility] CLIA [id number] [address] [place] [address] MARCIO SM IgG Ser-aCncon 2022 Lobo extractable nuclear IgG Qn (S) <0.2 Normal <1.0 [facility] Comment on above: Order Comment: Speci men Type: BLOOD SPECIMEN Ordering Facility: [facility] Address: [address] [place] [address] Performed By: #### 5 1774-5, 86262-8, 93050-1, 68303-8, 52297-5, 10366-8, 61382-5, 43597-8 #### [facility] CLIA [id number] [address] [place] [address] [place] MARCIO SS-A Ab Ser-aCncon 05-19 Sjogrens syndrome-A extractable nuclear Ab Qn (S) <0.2 Normal <1.0 [facility] Comment on above: Order Comment: Speci men Type: BLOOD SPECIMEN Ordering Facility: [facility] Address: [address] [place] [address] Result Comment: Test Methodology: Multiplex flow immunoassay. Performed By: #### 5 1775-5, 53538-5, 15761-9, 38624-9, 20304-9, 58757-2, 10163-3, 04685-1 #### [facility] CLIA [id number] [facility] [place] [address] [place] MARCIO SS-B Ab Ser-aCncon 05-19 Sjogrens syndrome-B extractable nuclear Ab Qn (S) <0.2 Normal <1.0 [facility] Comment on above: Order Comment: Speci men Type: BLOOD SPECIMEN Ordering Facility: [facility] Address: [address] [place] [address] Result Comment: Anti -SSB (anti-La) antibody is used as an aid in diagnosis of a variety of systemic autoimmune diseases, especially for Sjogren's syndrome and systemic lupus erythematosus. Clinical correlation is required. Test Methodology: Multiplex flow immunoassay. Performed By: #### 5 1775-5, 58693-9, 30460-6, 46249-6, 50660-7, 41160-9, 88680-7, 29184-8 #### [facility] CLIA [id number] [address] [place] [address] [place] Folate SerPl-ncon 05-19-20 23 Folate [Mass/Vol] 13.0 ng/mL Normal >4.7 [facility] Comment on above: Order Comment: Speci men Type: BLOOD SPECIMEN Ordering Facility: [facility] Address: [address] [place] [address] Performed By: #### V ITB6 #### [facility] CLIA [id number] [address] [place] [address] Elsa-1 extractable nuclear Ab Qn (S)on 05-19-2023 ELSA 1 ANTIBODY QUAL Negative Normal Negative [facility] Comment on above: Order Comment: Speci men Type: BLOOD SPECIMEN Ordering Facility: [facility] Address: [address] [place], [place] [address] Result Comment: Anti -ELSA-1 antibody is used as an aid in diagnosis of polymyositis and dermatomyositis especially with pulmonary involvement. A negative result cannot rule out polymyositis or dermatomyositis. Clinical correlation is required. Test Methodology: Multiplex flow immunoassay. Performed By: #### 5 1775-5, 16954-1, 16232-9, 04598-0, 19242-6, 84091-9, 57914-4, 86620-2 #### [facility] CLIA [id number] [address] [place] [address] [place] Ribonucleoprotein extractabl e nuclear Ab Qn (S)on 05-19-2023 ANTI-GEOSPATIAL DEVELOPER QUAL Negative Normal Negative [facility] Comment on above: Order Comment: Specprasanth crawley Type: BLOOD SPECIMEN Ordering Facility: [facility] Address: [address] [place] [address] Performed By: #### V IT #### [id number] [address] [place] [address] RIBOSOMAL GEOSPATIAL DEVELOPER QUAL Negative Normal Negative [facility] Comment on above: Order Comment: Nicky crawley Type: BLOOD SPECIMEN Ordering Facility: [facility] Address: [address] [place] [address] Result Comment: Anti -Ribosomal RNA (Ribosomal P) antibody is used as an aid in diagnosis of systemic autoimmune diseases especially systemic lupus erythematosus and mixed connective tissue disease. Cross-reactivity with Anti-lobo antibody is not uncommon. Clinical correlation is required. Test Methodology: Multiplex flow immunoassay. Performed By: #### 5 1775-5, 33538-3, 07749-5, 83187-3, 90643-3, 38786-0, 25180-0, 53777-3 #### [facility] CLIA [id number] [address] [place] [address] [place] SCL-70 extractable nuclear I gG IA Qn (S)on 05-19-2023 SCLERODERMA AB QUAL Negative Normal Negative [facility] Comment on above: Order Comment: Nicky crawley Type: BLOOD SPECIMEN Ordering Facility: [facility] Address: [address] [place] [address] Performed By: #### 5 1775-5, 47818-2, 06090-6, 91643-0, 30104-5, 86879-2, 47775-2, 08410-7 #### [facility] CLIA [id number] [address] [place] [address] [place] SCLERODERMA IGG AB <0.2 Normal <1.0 [facility] Comment on above: Order Comment: Speci men Type: BLOOD SPECIMEN Ordering Facility: [facility] Address: [address] [place] [place] [address] Result Comment: Scl- 70/Scleroderma antibody test is used as an aid in diagnosis of systemic sclerosis especially the diffuse cutaneous form. A negative result cannot rule out systemic sclerosis. The final interpretation should consider clinical picture and other test results such as anti-centromere antibody. Test Methodology: Multiplex flow immunoassay. Performed By: #### 5 5-5, 79011-3, 46588-8, 32571-5, 53084-1, 59500-5, 23083-7, 36187-4 #### [facility] CLIA [id number] [address] [place] [address] [place] Sjogrens syndrome-A extracta ble nuclear Ab Qn (S)on 05-19-2023 SSA ANTIBODY QUAL Negative Normal Negative [facility] Comment on above: Order Comment: Speci men Type: BLOOD SPECIMEN Ordering Facility: [facility] Address: [address] [place] [address] Performed By: #### 5 1775-5, 57303-2, 03329-9, 25445-8, 60325-5, 25677-7, 97097-7, 39933-1 #### [facility] CLIA [id number] [address] [place] [address] [place] Sjogrens syndrome-B extracta ble nuclear Ab Qn (S)on 05-19-2023 SSB ANTIBODY QUAL Negative Normal Negative [facility] Comment on above: Order Comment: Speci men Type: BLOOD SPECIMEN Ordering Facility: [facility] Address: [address] [place] [address] Performed By: #### 5 1775-5, 17712-8, 53324-6, 60845-2, 62471-4, 58772-6, 36706-4, 00576-7 #### [facility] CLIA [id number] [address] [place] [address] [place] Lobo extractable nuclear Ig G Qn (S)on 05-19-2023 SM ANTIBODY QUAL Negative Normal Negative [facility] Comment on above: Order Comment: Nicky cralwey Type: BLOOD SPECIMEN Ordering Facility: [facility] Address: [address] [place] [address] Result Comment: Anti -Sm (Lobo) antibody is used as an aid in diagnosis of systemic lupus erythematosus and its presence is associated with renal disease. A negative result cannot rule out systemic lupus erythematosus. Clinical correlation is required. Test Methodology: Multiplex flow immunoassay. Performed By: #### 5 1775-5, 15091-4, 33551-0, 11785-4, 64283-8, 46490-2, 40789-8, 78295-7 #### [facility] CLIA [id number] [address] [place] [address] [place] VITAMIN B6/PYRIDOXINon 05-19 VITAMIN B6 169.1 nmol/L High 20.0-125.0 [facility] Comment on above: Order Comment: Nicky crawley Type: BLOOD SPECIMEN Ordering Facility: [facility] Address: [address] [place] [address] Result Comment: INTE RPRETIVE INFORMATION: Vitamin B6 (Pyridoxal 5-Phosphate) Pyridoxal 5'-phosphate measured in a specimen collected following an 8-hour or overnight fast accurately indicates vitamin B6 nutritional status. Non-fasting specimen concentration reflects recent vitamin intake. This test was developed and its performance characteristics determined by [facility]. It has not been cleared or approved by the US Food and Drug Administration. This test was performed in a CLIA certified laboratory and is intended for clinical purposes. Performed By: [facility] [address] [place] [address] Lathe Puller: Greg Wong MD, PhD CLIA Number: [id number] Performed By: #### V ITB6 #### [facility] CLIA [id number] [address] [place] [address] Vit B12 SerPl-mCncon 023 Cobalamin (Vitamin B12) [Mass/Vol] 412 pg/mL Normal 232-1245 [facility] Comment on above: Order Comment: Speci men Type: BLOOD SPECIMEN Ordering Facility: [facility] Address: [address] [place] [address] Performed By: #### V ITB6 #### [facility] CLIA [id number] [address] [place] [address] CNOVon 05-17-2023 CNOV Office Visit (ADRY ) -- LUPE PICKARD ([id number]) 1975 F Date Time Provider Department 05/17/23 2:00 PM STEPHIE BRAMBILA During your visit today, we recorded the following information about you: Pulse Respiration Blood pressure Weight 70/minute 18/minute 144/81 121.8 kg Stephie Brambila MD 05/17/2023 2:50 PM Signed [facility] Date of Service: 05/17/2023 Patient: Lupe Pickard Medical Record: [id number] Last Rheumatology visit: None at [facility] History of Present Illness Lupe Pickard is [...] uses heat/ice, massage which helps. She takes [place] 5mg that does not do much for [...] 10 years. 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 Family History: No known FH of autoimmune [...] (more content not included)... Normal [facility] C reactive protein [Mass/vol ume] in Serum or Plasma by High sensitivity methodOrdered By: Zoya Aguirre on 03-29-2023 CRP High sensitivity method [Mass/Vol] 4.6 mg/L 0.0-0.9 [facility] Comment on above: Cardiovascular Risk Classification [...] marker for estimation of CVD risk. Erythrocyte sedimentation ra te by Photometric methodOrdered By: Zoya Aguirre on 03-29-2023 ESR Photometric method (Bld) [Velocity] 14 mm/hr 0-19 [facility] Vitamin B12 ser/plasOrdered By: Zoya Aguirre on 03-29-2023 Cobalamin (Vitamin B12) [Mass/Vol] 464 pg/mL 180-914 [facility] Alanine aminotransferase [En zymatic activity/volume] in Serum or PlasmaOrdered By: Radha Mcintosh on 03-17-2023 ALT [Catalytic activity/Vol] 13 U/L 7-52 [facility] Albumin [Mass/volume] in Ser um or Plasma by Bromocresol green (BCG) dye binding methoOrdered By: Radha Mcintosh on 03-17-2023 Albumin BCG dye [Mass/Vol] 4.2 g/dL 3.5-5.7 [facility] Alkaline phosphatase [Enzyma tic activity/volume] in Serum or PlasmaOrdered By: Radha Mcintosh on 03-17-2023 ALP [Catalytic activity/Vol] 66 U/L 34-104 [facility] Aspartate aminotransferase [ Enzymatic activity/volume] in Serum or PlasmaOrdered By: Radha Mcintosh on 03-17-2023 AST [Catalytic activity/Vol] 11 U/L 13-39 [facility] Basophils Auto (Bld) [#/Vol] Ordered By: Radha Mcintosh on 03-17-2023 Basophils (Bld) [#/Vol] 0.1 10*3/uL 0.0-0.2 [facility] Basophils/100 WBC Auto (Bld) Ordered By: Radha Mcintosh on 03-17-2023 Basophils/100 WBC (Bld) 0.8 % . [facility] Bilirubin.total [Mass/volume ] in Serum or PlasmaOrdered By: Radha Mcintosh on 03-17-2023 Bilirubin [Mass/Vol] 0.3 mg/dL 0.3-1.0 [facility] Calcium [Mass/volume] in Ser um or PlasmaOrdered By: Melissa Singh on 03-17-2023 Calcium [Mass/Vol] 9.0 mg/dL 8.6-10.3 [facility] Carbon dioxide, total [Moles /volume] in Serum or PlasmaOrdered By: Radha Mcintosh on 03-17-2023 CO2 [Moles/Vol] 27.5 mmol/L 21.0-31.0 [facility] Chloride [Moles/volume] in S zakia or PlasmaOrdered By: Radha Mcintosh on 03-17-2023 Chloride [Moles/Vol] 104 mmol/L 98-107 [facility] Creatinine [Mass/volume] in Serum or PlasmaOrdered By: Radha Mcintosh on 03-17-2023 Creatinine [Mass/Vol] 0.54 mg/dL 0.60-1.20 [facility] Eosinophils Auto (Bld) [#/Vo l]Ordered By: Radha Mcintosh on 03-17-2023 Eosinophils (Bld) [#/Vol] 0.1 10*3/uL 0.0-0.45 [facility] Eosinophils/100 WBC Auto (Bl d)Ordered By: Radha Mcintosh on 03-17-2023 Eosinophils/100 WBC (Bld) 1.5 % . [facility] Erythrocyte distribution wid th Auto (RBC) [Ratio]Ordered By: Radha Mcintosh on 03-17-2023 Erythrocyte distribution width (RBC) [Ratio] 15.2 % 11.9-15.3 [facility] Ferritin [Mass/volume] in Se rum or PlasmaOrdered By: Melissa Singh on 03-17-2023 Ferritin [Mass/Vol] 66.4 ng/mL 11.0-306.8 [facility] Folate [Mass/volume] in Seru m or PlasmaOrdered By: Melissa Singh on 03-17-2023 Folate [Mass/Vol] 27.0 ng/mL >5.9 [facility] Comment on above: Folate reference ran ge: >5.9 ng/mlThe WHO technical consultation on folate and vitamin [id number] has determined that folate concentrations lessthan 4 ng/ml are considered deficient. Globulin Calc (S) [Mass/Vol] Ordered By: Radha Mcintosh on 03-17-2023 Globulin (S) [Mass/Vol] 2.8 g/dL [facility] Glucose [Mass/volume] in Ser um or PlasmaOrdered By: Radha Mcintosh on 03-17-2023 Glucose [Mass/Vol] 79 mg/dL 70-100 [facility] Comment on above: ADA recommended refe rence rangeRandom Glucose Reference Range is dependent on time and content of last meal. Glucose of more than 200 mg/dL in a nonstressed, ambulatory subject supports the diagnosis of Diabetes Mellitus. Hematocrit Auto (Bld) [Volum e fraction]Ordered By: Radha Mcintosh on 03-17-2023 Hematocrit (Bld) [Volume fraction] 39.4 % 34.0-46.4 [facility] Hemoglobin [Mass/volume] in BloodOrdered By: Radha Mcintosh on 03-17-2023 Hemoglobin (Bld) [Mass/Vol] 13.1 g/dL 11.8-15.4 [facility] Iron [Mass/volume] in Serum or PlasmaOrdered By: Melissa Singh on 03-17-2023 Iron [Mass/Vol] 40 ug/dL 50-212 [facility] Leukocytes [#/volume] correc emily for nucleated erythrocytes in Blood by Automated counOrdered By: Radha Mcintosh on 03-17-2023 WBC corrected for nucl RBC Auto (Bld) [#/Vol] 8.8 10*3/uL 3.8-11.6 [facility] Lymphocytes Auto (Bld) [#/Vo l]Ordered By: Radha Mcintosh on 03-17-2023 Lymphocytes (Bld) [#/Vol] 2.6 10*3/uL 1.00-4.8 [facility] Lymphocytes/100 WBC Auto (Bl d)Ordered By: Radha Mcintosh on 03-17-2023 Lymphocytes/100 WBC (Bld) 29.4 % . [facility] MCH Auto (RBC) [Entitic mass ]Ordered By: Radha Mcintosh on 03-17-2023 MCH (RBC) [Entitic mass] 29.0 pg 24.7-34.3 [facility] MCHC Auto (RBC) [Mass/Vol]Or dered By: Radha Mcintosh on 03-17-2023 MCHC (RBC) [Mass/Vol] 33.3 g/dL 32.0-35.0 [facility] MCV Auto (RBC) [Entitic vol] Ordered By: Radha Mcintosh on 03-17-2023 MCV (RBC) [Entitic vol] 87.0 fL 80-100 [facility] Monocytes Auto (Bld) [#/Vol] Ordered By: Radha Mcintosh on 03-17-2023 Monocytes (Bld) [#/Vol] 0.5 10*3/uL 0.0-0.8 [facility] Monocytes/100 WBC Auto (Bld) Ordered By: Radha Mcintosh on 03-17-2023 Monocytes/100 WBC (Bld) 5.5 % . [facility] Neutrophils Auto (Bld) [#/Vo l]Ordered By: Radha Mcintosh on 03-17-2023 Neutrophils (Bld) [#/Vol] 5.5 10*3/uL 1.8-7.7 [facility] Neutrophils/100 WBC Auto (Bl d)Ordered By: Radha Mcintosh on 03-17-2023 Neutrophils/100 WBC (Bld) 62.8 % . [facility] No Panel InformationOrdered By: Radha Mcintosh on 03-17-2023 Estimated GFR (CKD-EPI) > 60.0 mL/Min [facility] Creatinine Clearance (Chem N/A [facility] Nucleated erythrocytes [Pres ence] in Blood by Automated countOrdered By: Radha Mcintosh on 03-17-2023 Nucleated RBC Auto Ql (Bld) 0.1 /100{WBC} 0-0.5 [facility] Parathyrin.intact [Mass/volu me] in Serum or PlasmaOrdered By: Melissa Singh on 03-17-2023 Parathyrin.intact [Mass/Vol] 46.2 pg/mL 12-88 [facility] Phosphate [Mass/volume] in S zakia or PlasmaOrdered By: Melissa Singh on 03-17-2023 Phosphate [Mass/Vol] 4.0 mg/dL 3.7-7.2 [facility] Platelet mean volume Auto (B ld) [Entitic vol]Ordered By: Radha Mcintosh on 03-17-2023 Platelet mean volume (Bld) [Entitic vol] 7.6 fL 6.3-10.7 [facility] Platelets Auto (Bld) [#/Vol] Ordered By: Radha Mcintosh on 03-17-2023 Platelets (Bld) [#/Vol] 370 10*3/uL 150-450 [facility] Potassium [Moles/volume] in Serum or PlasmaOrdered By: Radha Mcintosh on 03-17-2023 Potassium [Moles/Vol] 4.1 mmol/L 3.5-5.1 [facility] Protein [Mass/volume] in Ser um or PlasmaOrdered By: Radha Mcintosh on 03-17-2023 Protein [Mass/Vol] 7.0 g/dL 6.4-8.9 [facility] RBC Auto (Bld) [#/Vol]Ordere d By: Radha Mcintosh on 03-17-2023 RBC (Bld) [#/Vol] 4.53 10*6/uL 3.60-5.00 [facility] Serum or plasma 25-hydroxyca lciferol measurement (mass/volume)Ordered By: Radha Mcintosh on 03-17-2023 25-hydroxyvitamin D2 [Mass/Vol] <1.0 ng/mL . [facility] Comment on above: This test was develo ped and its performance characteristicsdetermined by [facility]. It has not been cleared or approvedby the Food and Drug Administration. Serum or plasma 25-hydroxyvi tamin D measurement (mass/volume)Ordered By: Radha Mcintosh on 03-17-2023 25-hydroxyvitamin D [Mass/Vol] 47 ng/mL . [facility] Comment on above: Reference Range:All Ages: Target levels 30 - 100 Serum or plasma albumin/glob ulin mass ratioOrdered By: Radha Mcintosh on 03-17-2023 Albumin/Globulin [Mass ratio] 1.5 {ratio} [facility] Serum or plasma anion gap de terminationOrdered By: Radha Mcintosh on 03-17-2023 Anion gap [Moles/Vol] 11.6 mmol/L 6.0-15.0 [facility] Serum or plasma calcidiol me asurement (mass/volume)Ordered By: Radha Mcintosh on 03-17-2023 25-hydroxyvitamin D3 [Mass/Vol] 47 ng/mL . [facility] Comment on above: This test was develo ped and its performance characteristicsdetermined by [facility]. It has not been cleared or approvedby the Food and Drug Administration.Performed at: [facility] [id number] [place], [place] [id number] Director: Kenji Malone MD, Phone: [phone] Sodium [Moles/volume] in Ser um or PlasmaOrdered By: Radha Mcintosh on 03-17-2023 Sodium [Moles/Vol] 139 mmol/L 136-145 [facility] Urea nitrogen [Mass/volume] in Serum or PlasmaOrdered By: Radha Mcintosh on 03-17-2023 Urea nitrogen [Mass/Vol] 9 mg/dL 7-25 [facility] Vitamin B12 ser/plasOrdered By: Melissa Singh on 03-17-2023 Cobalamin (Vitamin B12) [Mass/Vol] 478 pg/mL 180-914 [facility] WBC Auto (Bld) [#/Vol]Ordere d By: Radha Mcintosh on 03-17-2023 WBC (Bld) [#/Vol] 8.8 10*3/uL 3.8-11.6 [facility] Thyrotropin [Units/volume] i n Serum or PlasmaOrdered By: Kenyetta Dove on 02-17-2023 TSH Qn 0.24 m[IU]/L 0.45-5.33 [facility] Thyroxine (T4) free [Mass/vo lume] in Serum or PlasmaOrdered By: Kenyetta Dove on 02-17-2023 Free T4 [Mass/Vol] 0.87 ng/dL 0.61-1.12 [facility] Triiodothyronine (T3) Free [ Mass/volume] in Serum or PlasmaOrdered By: Kenyetta Dove on 02-17-2023 Free T3 [Mass/Vol] 3.89 pg/mL 2.50-3.90 [facility] Activated partial thrombopla stin time (aPTT) in platelet poor plasma by coagulation aOrdered By: Laz Lobo on 01-24-2023 aPTT Coag (PPP) [Time] 29.9 s 25.1-36.5 [facility] Basophils Auto (Bld) [#/Vol] Ordered By: Laz Lobo on 01-24-2023 Basophils (Bld) [#/Vol] 0.1 10*3/uL 0.0-0.2 [facility] Basophils/100 WBC Auto (Bld) Ordered By: Laz Lobo on 01-24-2023 Basophils/100 WBC (Bld) 0.7 % . [facility] Bilirubin Test strip Ql (U)O rdered By: Laz Lobo on 01-24-2023 Bilirubin Ql (U) Negative Negative [facility] Calcium [Mass/volume] in Ser um or PlasmaOrdered By: Laz Lobo on 01-24-2023 Calcium [Mass/Vol] 8.7 mg/dL 8.6-10.3 [facility] Carbon dioxide, total [Moles /volume] in Serum or PlasmaOrdered By: Laz Lobo on 01-24-2023 CO2 [Moles/Vol] 29.0 mmol/L 21.0-31.0 [facility] Chloride [Moles/volume] in S zakia or PlasmaOrdered By: Laz Lobo on 01-24-2023 Chloride [Moles/Vol] 105 mmol/L 98-107 [facility] Color Auto (U)Ordered By: Elsa Lobo on 01-24-2023 Color (U) Yellow Yellow [facility] Creatine kinase [Enzymatic a ctivity/volume] in Serum or PlasmaOrdered By: Laz Lobo on 01-24-2023 CK [Catalytic activity/Vol] 55 U/L 30-223 [facility] Creatinine [Mass/volume] in Serum or PlasmaOrdered By: Laz Lobo on 01-24-2023 Creatinine [Mass/Vol] 0.57 mg/dL 0.60-1.20 [facility] Eosinophils Auto (Bld) [#/Vo l]Ordered By: Laz Lobo on 01-24-2023 Eosinophils (Bld) [#/Vol] 0.1 10*3/uL 0.0-0.45 [facility] Eosinophils/100 WBC Auto (Bl d)Ordered By: Laz Lobo on 01-24-2023 Eosinophils/100 WBC (Bld) 1.6 % . [facility] Erythrocyte distribution wid th Auto (RBC) [Ratio]Ordered By: Laz Lobo on 01-24-2023 Erythrocyte distribution width (RBC) [Ratio] 14.5 % 11.9-15.3 [facility] Glucose [Mass/volume] in Ser um or PlasmaOrdered By: Laz Lobo on 01-24-2023 Glucose [Mass/Vol] 110 mg/dL 70-100 [facility] Comment on above: ADA recommended refe rence rangeRandom Glucose Reference Range is dependent on time and content of last meal. Glucose of more than 200 mg/dL in a nonstressed, ambulatory subject supports the diagnosis of Diabetes Mellitus. Hematocrit Auto (Bld) [Volum e fraction]Ordered By: Laz Lobo on 01-24-2023 Hematocrit (Bld) [Volume fraction] 39.8 % 34.0-46.4 [facility] Hemoglobin [Mass/volume] in BloodOrdered By: Laz Lobo on 01-24-2023 Hemoglobin (Bld) [Mass/Vol] 13.2 g/dL 11.8-15.4 [facility] INR in Platelet poor plasma by Coagulation assayOrdered By: Laz Lobo on 01-24-2023 INR Coag (PPP) [Relative time] 1.0 {INR} [facility] Comment on above: INR Therapeutic Rang [...] on 01-24-2023 Ketones (U) [Mass/Vol] Negative Negative [facility] - CoagulationOrde red By: Laz Lobo on 01-24-2023 PT Coag (PPP) [Time] 11.5 s 9.0-12.9 [facility] Leukocytes [#/volume] correc emily for nucleated erythrocytes in Blood by Automated counOrdered By: Laz Lobo on 01-24-2023 WBC corrected for nucl RBC Auto (Bld) [#/Vol] 7.6 10*3/uL 3.8-11.6 [facility] Lymphocytes Auto (Bld) [#/Vo l]Ordered By: Laz Lobo on 01-24-2023 Lymphocytes (Bld) [#/Vol] 2.0 10*3/uL 1.00-4.8 [facility] Lymphocytes/100 WBC Auto (Bl d)Ordered By: Laz Lobo on 01-24-2023 Lymphocytes/100 WBC (Bld) 26.6 % . [facility] MCH Auto (RBC) [Entitic mass ]Ordered By: Laz Lobo on 01-24-2023 MCH (RBC) [Entitic mass] 28.8 pg 24.7-34.3 [facility] MCHC Auto (RBC) [Mass/Vol]Or dered By: Laz Lobo on 01-24-2023 MCHC (RBC) [Mass/Vol] 33.1 g/dL 32.0-35.0 [facility] MCV Auto (RBC) [Entitic vol] Ordered By: Laz Lobo on 01-24-2023 MCV (RBC) [Entitic vol] 86.8 fL 80-100 [facility] Monocyte distribution width [Entitic volume] in Blood by AutomatedOrdered By: Laz Lobo on 01-24-2023 Monocyte distribution width Auto (Bld) [Entitic vol] 16.72 % 0.00-20.00 [facility] Monocytes Auto (Bld) [#/Vol] Ordered By: Laz Lobo on 01-24-2023 Monocytes (Bld) [#/Vol] 0.2 10*3/uL 0.0-0.8 [facility] Monocytes/100 WBC Auto (Bld) Ordered By: Laz Lobo on 01-24-2023 Monocytes/100 WBC (Bld) 2.7 % . [facility] Natriuretic peptide B [Mass/ Vol]Ordered By: Laz Lobo on 01-24-2023 Natriuretic peptide B (Bld) [Mass/Vol] 37.0 pg/mL 5-100 [facility] Neutrophils Auto (Bld) [#/Vo l]Ordered By: Laz Lobo on 01-24-2023 Neutrophils (Bld) [#/Vol] 5.2 10*3/uL 1.8-7.7 [facility] Neutrophils/100 WBC Auto (Bl d)Ordered By: Laz Lobo on 01-24-2023 Neutrophils/100 WBC (Bld) 68.4 % . [facility] Nitrite Test strip Ql (U)Ord ered By: Laz Lobo on 01-24-2023 Nitrite Ql (U) Negative Negative [facility] No Panel InformationOrdered By: Laz Lobo on 01-24-2023 D-Dimer Quantitative (PE/DVT) < 200 ng/mL 0-243 [facility] Comment on above: The reference range [...] conditions. Estimated GFR (CKD-EPI) > 60.0 mL/Min [facility] Creatinine Clearance (Chem 169.33 [facility] Nucleated erythrocytes [Pres ence] in Blood by Automated countOrdered By: Laz Lobo on 01-24-2023 Nucleated RBC Auto Ql (Bld) 0.1 /100{WBC} 0-0.5 [facility] Platelet mean volume Auto (B ld) [Entitic vol]Ordered By: Laz Lobo on 01-24-2023 Platelet mean volume (Bld) [Entitic vol] 8.2 fL 6.3-10.7 [facility] Platelets Auto (Bld) [#/Vol] Ordered By: Laz Lobo on 01-24-2023 Platelets (Bld) [#/Vol] 350 10*3/uL 150-450 [facility] Potassium [Moles/volume] in Serum or PlasmaOrdered By: Laz Lobo on 01-24-2023 Potassium [Moles/Vol] 3.8 mmol/L 3.5-5.1 [facility] Protein Auto test strip (U) [Mass/Vol]Ordered By: Laz Lobo on 01-24-2023 Protein (U) [Mass/Vol] Negative Negative [facility] RBC Auto (Bld) [#/Vol]Ordere d By: Laz Lobo on 01-24-2023 RBC (Bld) [#/Vol] 4.59 10*6/uL 3.60-5.00 [facility] Serum or plasma anion gap de terminationOrdered By: Laz Lobo on 01-24-2023 Anion gap [Moles/Vol] 8.8 mmol/L 6.0-15.0 [facility] Sodium [Moles/volume] in Ser um or PlasmaOrdered By: Laz Lobo on 01-24-2023 Sodium [Moles/Vol] 139 mmol/L 136-145 [facility] Specific gravity Auto test s trip (U) [Rel density]Ordered By: Laz Lobo on 01-24-2023 Specific gravity (U) [Rel density] 1.004 1.001-1.03 0 [facility] Troponin I.cardiac [Mass/vol ume] in Serum or Plasma by Detection limit <= 0.01 ng/Ordered By: Laz Lobo on 01-24-2023 Troponin I.cardiac DL <= 0.01 ng/mL [Mass/Vol] < 2.3 pg/mL 0.0-15.0 [facility] Urea nitrogen [Mass/volume] in Serum or PlasmaOrdered By: Laz Lobo on 01-24-2023 Urea nitrogen [Mass/Vol] 7 mg/dL 7-25 [facility] Urine clarity by refractomet ry automatedOrdered By: Laz Lobo on 01-24-2023 Clarity Refractometry automated (U) Clear Clear [facility] Urine glucose measurement by automated test strip (mass/volume)Ordered By: Laz Lobo on 01-24-2023 Glucose Auto test strip (U) [Mass/Vol] Normal mg/dL Normal [facility] Urine hemoglobin detection b y automated test stripOrdered By: Laz Lobo on 01-24-2023 Hemoglobin Auto test strip Ql (U) Negative Negative [facility] Urine leukocyte esterase det ection by automated test stripOrdered By: Laz Lobo on 01-24-2023 Leukocyte esterase Auto test strip Ql (U) Negative Negative [facility] Urobilinogen Auto test strip (U) [Mass/Vol]Ordered By: Laz Lobo on 01-24-2023 Urobilinogen (U) [Mass/Vol] Normal mg/dL Normal [facility] WBC Auto (Bld) [#/Vol]Ordere d By: Laz Lobo on 01-24-2023 WBC (Bld) [#/Vol] 7.6 10*3/uL 3.8-11.6 [facility] pH Auto test strip (U)Ordere d By: Laz Lobo on 01-24-2023 pH (U) 7.0 [pH] 5.0-9.0 [facility] Calcium [Mass/volume] in Ser um or PlasmaOrdered By: Phillip Benjamin on 01-21-2023 Calcium [Mass/Vol] 9.1 mg/dL 8.6-10.3 [facility] Carbon dioxide, total [Moles /volume] in Serum or PlasmaOrdered By: Phillip Benjamin on 01-21-2023 CO2 [Moles/Vol] 28.2 mmol/L 21.0-31.0 [facility] Chloride [Moles/volume] in S zakia or PlasmaOrdered By: Phillip Benjamin on 01-21-2023 Chloride [Moles/Vol] 105 mmol/L 98-107 [facility] Cholesterol [Mass/volume] in Serum or PlasmaOrdered By: Franklyn Herman on 01-21-2023 Cholesterol [Mass/Vol] 153 mg/dL 140-200 [facility] Comment on above: Chol less than 200 m g/dl low riskChol 201-239 mg/dl borderline riskChol 240 mg/dl and greater high risk Cholesterol in LDL Calc [Mas s/Vol]Ordered By: Franklyn Herman on 01-21-2023 Cholesterol in LDL [Mass/Vol] 60 mg/dL 0-100 [facility] Comment on above: LDL ATP III CLASSIFI CATIONLDL less than 100 mg/dL OptimalLDL 100-129 mg/dL Near or above optimalLDL 130-159 mg/dL Borderline highLDL 160-189 mg/dL HighLDL greater than 189 mg/dL Very high Cholesterol in VLDL Calc [Ma ss/Vol]Ordered By: Franklyn Herman on 01-21-2023 Cholesterol in VLDL [Mass/Vol] 50 mg/dL [facility] Creatinine [Mass/volume] in Serum or PlasmaOrdered By: Phillip Benjamin on 01-21-2023 Creatinine [Mass/Vol] 0.52 mg/dL 0.60-1.20 [facility] Glucose [Mass/volume] in Ser um or PlasmaOrdered By: Phillip Benjamin on 01-21-2023 Glucose [Mass/Vol] 84 mg/dL 70-100 [facility] Comment on above: ADA recommended refe rence rangeRandom Glucose Reference Range is dependent on time and content of last meal. Glucose of more than 200 mg/dL in a nonstressed, ambulatory subject supports the diagnosis of Diabetes Mellitus. No Panel InformationOrdered By: Phillip Benjamin on 01-21-2023 Estimated GFR (CKD-EPI) > 60.0 mL/Min [facility] Creatinine Clearance (Chem N/A [facility] No Panel Informationon 01-21 > 60.0 Normal [facility] [employer] [address] DO Work Phone: 10.1\S\10.1 Normal 6.0-15.0 [facility] [employer] 600 DO Work Phone: 9.1\S\9.1 Normal 8.6-10.3 [facility] [employer] [address] DO Work Phone: 28.2\S\28.2 Normal 21.0-31.0 [facility] [employer] 600 DO Work Phone: 105\S\105 Normal 98-107 [facility] [employer] 600 DO Work Phone: 4.3\S\4.3 Normal 3.5-5.1 [facility] [employer] [address] DO Work Phone: 139\S\139 Normal 136-145 [facility] [employer] DO Work Phone: 0.52\S\0.52 below low threshold 0.60-1.20 [facility] [employer] [address] DO Work Phone: 8\S\8 Normal 7-25 [facility] [employer] DO Work Phone: 84\S\84 Normal 70-100 [facility] [employer] DO Work Phone: Comment on above: Random Glucose Refer ence Range is dependent on time and content of last meal. Glucose of more than 200 mg/dL in a nonstressed, ambulatory subject supports the diagnosis of Diabetes Mellitus. ADA recommended reference range 0.24\S\0.24 below low threshold 0.45-5.33 [facility] [employer] DO Work Phone: 41.7\S\41.7 Normal 30-100 [facility] [employer] [address] DO Work Phone: Comment on above: VITAMIN D STATUS 25( [place])VITAMIN D RANGE (ng/mL) Deficient <20 Insufficient 20 to <30 Sufficient 30 to 100 Reference: Kirby MF,Adonay NC, Shantelle HOLLOWAY, et al. Evaluation,treatment, and prevention of vitamin D deficiency; an Endocrine Society clinical practice guideline. JCEM. 2010; 96(7):1911-30.PERFORMED BY:[facility] [place], [place] [id number] MEDICAL DIRECTORWENDY CLARK M.D. Potassium [Moles/volume] in Serum or PlasmaOrdered By: Phillip Benjamin on 01-21-2023 Potassium [Moles/Vol] 4.3 mmol/L 3.5-5.1 [facility] Serum or plasma anion gap de terminationOrdered By: Phillip Benjamin on 01-21-2023 Anion gap [Moles/Vol] 10.1 mmol/L 6.0-15.0 [facility] Serum or plasma high density lipoprotein (HDL) cholesterol measurementOrdered By: Franklyn Herman on 01-21-2023 Cholesterol in HDL [Mass/Vol] 42 mg/dL 23-92 [facility] Comment on above: HDL CHOL ATP-III CLA SSIFICATION Cardiovascular RiskHDL > or equal to 60 mg/dL LOWHDL < 40 mg/dL HIGH Serum or plasma total choles terol/high density lipoprotein (HDL) cholesterol mass ratOrdered By: Franklyn Herman on 01-21-2023 Cholesterol.total/Cho lesterol in HDL [Mass ratio] 3.6 {ratio} <5.0 [facility] Sodium [Moles/volume] in Ser um or PlasmaOrdered By: Phillip Benjamin on 01-21-2023 Sodium [Moles/Vol] 139 mmol/L 136-145 [facility] Thyrotropin [Units/volume] i n Serum or PlasmaOrdered By: Phillip Benjamin on 01-21-2023 TSH Qn 0.24 m[IU]/L 0.45-5.33 [facility] Triglyceride [Mass/volume] i n Serum or PlasmaOrdered By: Franklyn Herman on 01-21-2023 Triglyceride [Mass/Vol] 254 mg/dL 0-149 [facility] Comment on above: TRIG ATP III CLASSIF ICATIONTRIG less than 150 mg/dL NormalTRIG 150-199 mg/dL Borderline highTRIG 200-500 mg/dL High TRIG greater than 500 mg/dL Very highStandard traceable to the Center for Disease Conrtrol and Prevention (CDC) test method. Urea nitrogen [Mass/volume] in Serum or PlasmaOrdered By: Phillip Benjamin on 01-21-2023 Urea nitrogen [Mass/Vol] 8 mg/dL 7- [facility] Vitamin D+Metabolites [Mass/ volume] in Serum or PlasmaOrdered By: Phillip Benjamin on 01-21-2023 Vitamin D+Metabolites [Mass/Vol] 41.7 ng/mL 30-100 [facility] Comment on above: VITAMIN D STATUS 25( [place])VITAMIN D RANGE (ng/mL) Deficient <20 Insufficient 20 to <30Sufficient 30 to 100Reference: Kirby GALVAN,Adonay NC, Shantelle HOLLOWAY, et al. Evaluation,treatment, and prevention of vitamin D deficiency; an Endocrine Society clinical practice guideline. JCEM. 2010; 96(7):1911-30. Activated partial thrombopla stin time (aPTT) in platelet poor plasma by coagulation aOrdered By: Mariya Kumari on 12-30-2022 aPTT Coag (PPP) [Time] 30.5 s 25.1-36.5 [facility] Basophils Auto (Bld) [#/Vol] Ordered By: Mariya Kumari on 12-30-2022 Basophils (Bld) [#/Vol] 0.1 10*3/uL 0.0-0.2 [facility] Basophils/100 WBC Auto (Bld) Ordered By: Mariya Kumari on 12-30-2022 Basophils/100 WBC (Bld) 1.3 % . [facility] Calcium [Mass/volume] in Ser um or PlasmaOrdered By: Mariya Kumari on 12-30-2022 Calcium [Mass/Vol] 8.4 mg/dL 8.6-10.3 [facility] Carbon dioxide, total [Moles /volume] in Serum or PlasmaOrdered By: Mariya Kumari on 12-30-2022 CO2 [Moles/Vol] 28.0 mmol/L 21.0-31.0 [facility] Chloride [Moles/volume] in S zakia or PlasmaOrdered By: Mariya Kumari on 12-30-2022 Chloride [Moles/Vol] 104 mmol/L 98-107 [facility] Creatinine [Mass/volume] in Serum or PlasmaOrdered By: Mariya Kumari on 12-30-2022 Creatinine [Mass/Vol] 0.56 mg/dL 0.60-1.20 [facility] Eosinophils Auto (Bld) [#/Vo l]Ordered By: Mariya Kumari on 12-30-2022 Eosinophils (Bld) [#/Vol] 0.1 10*3/uL 0.0-0.45 [facility] Eosinophils/100 WBC Auto (Bl d)Ordered By: Mariya Kumari on 12-30-2022 Eosinophils/100 WBC (Bld) 1.5 % . [facility] Erythrocyte distribution wid th Auto (RBC) [Ratio]Ordered By: Mariya Kumari on 12-30-2022 Erythrocyte distribution width (RBC) [Ratio] 14.4 % 11.9-15.3 [facility] Glucose [Mass/volume] in Ser um or PlasmaOrdered By: Mariya Kumari on 12-30-2022 Glucose [Mass/Vol] 87 mg/dL 70-100 [facility] Comment on above: ADA recommended refe rence rangeRandom Glucose Reference Range is dependent on time and content of last meal. Glucose of more than 200 mg/dL in a nonstressed, ambulatory subject supports the diagnosis of Diabetes Mellitus. Hematocrit Auto (Bld) [Volum e fraction]Ordered By: Mariya Kumari on 12-30-2022 Hematocrit (Bld) [Volume fraction] 40.1 % 34.0-46.4 [facility] Hemoglobin [Mass/volume] in BloodOrdered By: Mariya Kumari on 12-30-2022 Hemoglobin (Bld) [Mass/Vol] 13.3 g/dL 11.8-15.4 [facility] - CoagulationOrde red By: Mariya Kumari on 12-30-2022 PT Coag (PPP) [Time] 10.9 s 9.0-12.9 [facility] Leukocytes [#/volume] correc emily for nucleated erythrocytes in Blood by Automated counOrdered By: Mariya Kumari on 12-30-2022 WBC corrected for nucl RBC Auto (Bld) [#/Vol] 9.6 10*3/uL 3.8-11.6 [facility] Lymphocytes Auto (Bld) [#/Vo l]Ordered By: Mariya Kumari on 12-30-2022 Lymphocytes (Bld) [#/Vol] 3.2 10*3/uL 1.00-4.8 [facility] Lymphocytes/100 WBC Auto (Bl d)Ordered By: Mariya Kumari on 12-30-2022 Lymphocytes/100 WBC (Bld) 33.6 % . [facility] MCH Auto (RBC) [Entitic mass ]Ordered By: Mariya Kumari on 12-30-2022 MCH (RBC) [Entitic mass] 28.8 pg 24.7-34.3 [facility] MCHC Auto (RBC) [Mass/Vol]Or dered By: Mariya Kumari on 12-30-2022 MCHC (RBC) [Mass/Vol] 33.1 g/dL 32.0-35.0 [facility] MCV Auto (RBC) [Entitic vol] Ordered By: Mariya Kumari on 12-30-2022 MCV (RBC) [Entitic vol] 87.2 fL 80-100 [facility] Magnesium [Mass/volume] in S zakia or PlasmaOrdered By: Mariya Kumari on 12-30-2022 Magnesium [Mass/Vol] 1.9 mg/dL 1.9-2.7 [facility] Monocyte distribution width [Entitic volume] in Blood by AutomatedOrdered By: Mariya Kumari on 12-30-2022 Monocyte distribution width Auto (Bld) [Entitic vol] 16.70 % 0.00-20.00 [facility] Monocytes Auto (Bld) [#/Vol] Ordered By: Mariya Kumari on 12-30-2022 Monocytes (Bld) [#/Vol] 0.4 10*3/uL 0.0-0.8 [facility] Monocytes/100 WBC Auto (Bld) Ordered By: Mariya Kumari on 12-30-2022 Monocytes/100 WBC (Bld) 4.0 % . [facility] Natriuretic peptide B [Mass/ Vol]Ordered By: Mariya Kumari on 12-30-2022 Natriuretic peptide B (Bld) [Mass/Vol] 55.0 pg/mL 5-100 [facility] Neutrophils Auto (Bld) [#/Vo l]Ordered By: Mariya Kumari on 12-30-2022 Neutrophils (Bld) [#/Vol] 5.7 10*3/uL 1.8-7.7 [facility] Neutrophils/100 WBC Auto (Bl d)Ordered By: Mariya Kumari on 12-30-2022 Neutrophils/100 WBC (Bld) 59.6 % . [facility] No Panel InformationOrdered By: Mariya Kumari on 12-30-2022 D-Dimer Quantitative (PE/DVT) 334 ng/mL 0-243 [facility] Comment on above: The reference range [...] conditions. Estimated GFR (CKD-EPI) > 60.0 mL/Min [facility] Creatinine Clearance (Chem 171.83 [facility] Nucleated erythrocytes [Pres ence] in Blood by Automated countOrdered By: Mariya Kumari on 12-30-2022 Nucleated RBC Auto Ql (Bld) 0.1 /100{WBC} 0-0.5 [facility] Platelet mean volume Auto (B ld) [Entitic vol]Ordered By: Mariya Kumari on 12-30-2022 Platelet mean volume (Bld) [Entitic vol] 8.6 fL 6.3-10.7 [facility] Platelet poor plasma interna tional normalized ratio (INR) by coagulation assay (relatOrdered By: Mariya Kumari on 12-30-2022 INR Coag (PPP) [Relative time] 0.9 {INR} [facility] Comment on above: INR Therapeutic Rang [...] 12-30-2022 Platelets (Bld) [#/Vol] 348 10*3/uL 150-450 [facility] Potassium [Moles/volume] in Serum or PlasmaOrdered By: Mariya Kumari on 12-30-2022 Potassium [Moles/Vol] 3.7 mmol/L 3.5-5.1 [facility] RBC Auto (Bld) [#/Vol]Ordere d By: Mariya Kumari on 12-30-2022 RBC (Bld) [#/Vol] 4.60 10*6/uL 3.60-5.00 [facility] Serum or plasma anion gap de terminationOrdered By: Mariya Kumari on 12-30-2022 Anion gap [Moles/Vol] 11.7 mmol/L 6.0-15.0 [facility] Sodium [Moles/volume] in Ser um or PlasmaOrdered By: Mariya Kumari on 12-30-2022 Sodium [Moles/Vol] 140 mmol/L 136-145 [facility] Troponin I.cardiac [Mass/vol ume] in Serum or Plasma by Detection limit <= 0.01 ng/Ordered By: Mariya Kumari on 12-30-2022 Troponin I.cardiac DL <= 0.01 ng/mL [Mass/Vol] 2.4 pg/mL 0.0-15.0 [facility] Urea nitrogen [Mass/volume] in Serum or PlasmaOrdered By: Mariya Kumari on 12-30-2022 Urea nitrogen [Mass/Vol] 7 mg/dL 12-21 [facility] WBC Auto (Bld) [#/Vol]Ordere d By: Mariya Kumari on 12-30-2022 WBC (Bld) [#/Vol] 9.6 10*3/uL 3.8-11.6 [facility] Activated partial thrombopla stin time (aPTT) in platelet poor plasma by coagulation aOrdered By: Josué Napier on 12-20-2022 aPTT Coag (PPP) [Time] 31.8 s 25.1-36.5 [facility] Alanine aminotransferase [En zymatic activity/volume] in Serum or PlasmaOrdered By: Josué Napier on 12-20-2022 ALT [Catalytic activity/Vol] 12 U/L [facility] Albumin [Mass/volume] in Ser um or Plasma by Bromocresol green (BCG) dye binding methoOrdered By: Josué Napier on 12-20-2022 Albumin BCG dye [Mass/Vol] 4.4 g/dL 3.5-5.7 [facility] Alkaline phosphatase [Enzyma tic activity/volume] in Serum or PlasmaOrdered By: Josué Napier on 12-20-2022 ALP [Catalytic activity/Vol] 49 U/L 34-104 [facility] Amphetamine Screen Ql (U)Ord ered By: Josué Napier on 12-20-2022 Amphetamines Ql (U) Negative Negative [facility] Aspartate aminotransferase [ Enzymatic activity/volume] in Serum or PlasmaOrdered By: Josué Napier on 12-20-2022 AST [Catalytic activity/Vol] 11 U/L 13-39 [facility] Barbiturates [Presence] in U rine by Screen methodOrdered By: Josué Napier on 12-20-2022 Barbiturates Screen Ql (U) Negative Negative [facility] Basophils Auto (Bld) [#/Vol] Ordered By: Josué Napier on 12-20-2022 Basophils (Bld) [#/Vol] 0.0 10*3/uL 0.0-0.2 [facility] Basophils/100 WBC Auto (Bld) Ordered By: Josué Napier on 12-20-2022 Basophils/100 WBC (Bld) 0.2 % . [facility] Benzodiazepines Screen Ql (U )Ordered By: Josué Napier on 12-20-2022 Benzodiazepines Ql (U) Negative Negative [facility] Benzoylecgonine [Presence] i n Urine by Screen methodOrdered By: Josué Napier on 12-20-2022 Benzoylecgonine Screen Ql (U) Negative Negative [facility] Bilirubin Test strip Ql (U)O rdered By: Josué Napier on 12-20-2022 Bilirubin Ql (U) Negative Negative [facility] Bilirubin.total [Mass/volume ] in Serum or PlasmaOrdered By: Josué Napier on 12-20-2022 Bilirubin [Mass/Vol] 0.3 mg/dL 0.3-1.0 [facility] Calcium [Mass/volume] in Ser um or PlasmaOrdered By: Josué Napier on 12-20-2022 Calcium [Mass/Vol] 9.2 mg/dL 8.6-10.3 [facility] Cannabinoids [Presence] in U rine by Screen methodOrdered By: Josué Napier on 12-20-2022 Cannabinoids Screen Ql (U) Negative Negative [facility] Comment on above: These are unconfirme d results and should not be used for legal purposes. Drug Cut-Off Concentration: AMPH 1000 ng/mL MEKHI 200 ng/mL NURY 200 ng/mL COCM 300 ng/mL OP 300 ng/mL PCP 25 ng/mL THC 20 ng/mL Carbon dioxide, total [Moles /volume] in Serum or PlasmaOrdered By: Josué Napier on 12-20-2022 CO2 [Moles/Vol] 28.6 mmol/L 21.0-31.0 [facility] Chloride [Moles/volume] in S zakia or PlasmaOrdered By: Josué Napier on 12-20-2022 Chloride [Moles/Vol] 104 mmol/L 98-107 [facility] Color Auto (U)Ordered By: Randolph Napier on 12-20-2022 Color (U) Yellow Yellow [facility] Creatine kinase [Enzymatic a ctivity/volume] in Serum or PlasmaOrdered By: Josué Napier on 12-20-2022 CK [Catalytic activity/Vol] 46 U/L 30-223 [facility] Creatinine [Mass/volume] in Serum or PlasmaOrdered By: Josué Napier on 12-20-2022 Creatinine [Mass/Vol] 0.57 mg/dL 0.60-1.20 [facility] Eosinophils Auto (Bld) [#/Vo l]Ordered By: Josué Napier on 12-20-2022 Eosinophils (Bld) [#/Vol] 0.1 10*3/uL 0.0-0.45 [facility] Eosinophils/100 WBC Auto (Bl d)Ordered By: Josué Napier on 12-20-2022 Eosinophils/100 WBC (Bld) 1.1 % . [facility] Erythrocyte distribution wid th Auto (RBC) [Ratio]Ordered By: Josué Napier on 12-20-2022 Erythrocyte distribution width (RBC) [Ratio] 14.4 % 11.9-15.3 [facility] Globulin Calc (S) [Mass/Vol] Ordered By: Josué Napier on 12-20-2022 Globulin (S) [Mass/Vol] 3.1 g/dL [facility] Glucose [Mass/volume] in Ser um or PlasmaOrdered By: Josué Napier on 12-20-2022 Glucose [Mass/Vol] 97 mg/dL 70-100 [facility] Comment on above: ADA recommended refe rence rangeRandom Glucose Reference Range is dependent on time and content of last meal. Glucose of more than 200 mg/dL in a nonstressed, ambulatory subject supports the diagnosis of Diabetes Mellitus. Hematocrit Auto (Bld) [Volum e fraction]Ordered By: Josué Napier on 12-20-2022 Hematocrit (Bld) [Volume fraction] 40.7 % 34.0-46.4 [facility] Hemoglobin [Mass/volume] in BloodOrdered By: Josué Napier on 12-20-2022 Hemoglobin (Bld) [Mass/Vol] 13.7 g/dL 11.8-15.4 [facility] Ketones Auto test strip (U) [Mass/Vol]Ordered By: Josué Napier on 12-20-2022 Ketones (U) [Mass/Vol] Negative Negative [facility] - CoagulationOrde red By: Josué Napier on 12-20-2022 PT Coag (PPP) [Time] 11.8 s 9.0-12.9 [facility] Leukocytes [#/volume] correc emily for nucleated erythrocytes in Blood by Automated counOrdered By: Josué Napier on 12-20-2022 WBC corrected for nucl RBC Auto (Bld) [#/Vol] 10.0 10*3/uL 3.8-11.6 [facility] Lymphocytes Auto (Bld) [#/Vo l]Ordered By: Josué Napier on 12-20-2022 Lymphocytes (Bld) [#/Vol] 2.7 10*3/uL 1.00-4.8 [facility] Lymphocytes/100 WBC Auto (Bl d)Ordered By: Josué Napier on 12-20-2022 Lymphocytes/100 WBC (Bld) 26.9 % . [facility] MCH Auto (RBC) [Entitic mass ]Ordered By: Josué Napier on 12-20-2022 MCH (RBC) [Entitic mass] 29.2 pg 24.7-34.3 [facility] MCHC Auto (RBC) [Mass/Vol]Or dered By: Josué Napier on 12-20-2022 MCHC (RBC) [Mass/Vol] 33.6 g/dL 32.0-35.0 [facility] MCV Auto (RBC) [Entitic vol] Ordered By: Josué Napier on 12-20-2022 MCV (RBC) [Entitic vol] 86.9 fL 80-100 [facility] Magnesium [Mass/volume] in S zakia or PlasmaOrdered By: Josué Napier on 12-20-2022 Magnesium [Mass/Vol] 1.8 mg/dL 1.9-2.7 [facility] Monocyte distribution width [Entitic volume] in Blood by AutomatedOrdered By: Josué Napier on 12-20-2022 Monocyte distribution width Auto (Bld) [Entitic vol] 18.26 % 0.00-20.00 [facility] Monocytes Auto (Bld) [#/Vol] Ordered By: Josué Napier on 12-20-2022 Monocytes (Bld) [#/Vol] 0.4 10*3/uL 0.0-0.8 [facility] Monocytes/100 WBC Auto (Bld) Ordered By: Josué Napier on 12-20-2022 Monocytes/100 WBC (Bld) 4.1 % . [facility] Neutrophils Auto (Bld) [#/Vo l]Ordered By: Josué Napier on 12-20-2022 Neutrophils (Bld) [#/Vol] 6.8 10*3/uL 1.8-7.7 [facility] Neutrophils/100 WBC Auto (Bl d)Ordered By: Josué Napier on 12-20-2022 Neutrophils/100 WBC (Bld) 67.7 % . [facility] Nitrite Test strip Ql (U)Ord ered By: Josué Napier on 12-20-2022 Nitrite Ql (U) Negative Negative [facility] No Panel InformationOrdered By: Josué Napier on 12-20-2022 Estimated GFR (CKD-EPI) > 60.0 mL/Min [facility] Creatinine Clearance (Chem 168.35 [facility] Nucleated erythrocytes [Pres ence] in Blood by Automated countOrdered By: Josué Napier on 12-20-2022 Nucleated RBC Auto Ql (Bld) 0.1 /100{WBC} 0-0.5 [facility] Opiates [Presence] in Urine by Screen methodOrdered By: Josué Napier on 12-20-2022 Opiates Screen Ql (U) Negative Negative [facility] Phencyclidine Screen Ql (U)O rdered By: Josué Napier on 12-20-2022 Phencyclidine Ql (U) Negative Negative [facility] Platelet mean volume Auto (B ld) [Entitic vol]Ordered By: Josué Napier on 12-20-2022 Platelet mean volume (Bld) [Entitic vol] 8.3 fL 6.3-10.7 [facility] Platelet poor plasma interna tional normalized ratio (INR) by coagulation assay (relatOrdered By: Josué Napier on 12-20-2022 INR Coag (PPP) [Relative time] 1.0 {INR} [facility] Comment on above: INR Therapeutic Rang [...] 12-20-2022 Platelets (Bld) [#/Vol] 349 10*3/uL 150-450 [facility] Potassium [Moles/volume] in Serum or PlasmaOrdered By: Josué Napier on 12-20-2022 Potassium [Moles/Vol] 3.9 mmol/L 3.5-5.1 [facility] Protein Auto test strip (U) [Mass/Vol]Ordered By: Josué Napier on 12-20-2022 Protein (U) [Mass/Vol] Negative Negative [facility] Protein [Mass/volume] in Ser um or PlasmaOrdered By: Josué Napier on 12-20-2022 Protein [Mass/Vol] 7.5 g/dL 6.4-8.9 [facility] RBC Auto (Bld) [#/Vol]Ordere d By: Josué Napier on 12-20-2022 RBC (Bld) [#/Vol] 4.68 10*6/uL 3.60-5.00 [facility] Serum or plasma albumin/glob ulin mass ratioOrdered By: Josué Napier on 12-20-2022 Albumin/Globulin [Mass ratio] 1.4 {ratio} [facility] Serum or plasma anion gap de terminationOrdered By: Josué Napier on 12-20-2022 Anion gap [Moles/Vol] 10.3 mmol/L 6.0-15.0 [facility] Sodium [Moles/volume] in Ser um or PlasmaOrdered By: Josué Napier on 12-20-2022 Sodium [Moles/Vol] 139 mmol/L 136-145 [facility] Specific gravity Auto test s trip (U) [Rel density]Ordered By: Josué Napier on 12-20-2022 Specific gravity (U) [Rel density] 1.005 1.001-1.03 0 [facility] Thyrotropin [Units/volume] i n Serum or PlasmaOrdered By: Josué Napier on 12-20-2022 TSH Qn 0.23 m[IU]/L 0.45-5.33 [facility] Thyroxine (T4) [Mass/volume] in Serum or PlasmaOrdered By: Josué Napier on 12-20-2022 T4 [Mass/Vol] 9.01 ug/dL 5.39-11.82 [facility] Troponin I.cardiac [Mass/vol ume] in Serum or Plasma by Detection limit <= 0.01 ng/Ordered By: Josué Napier on 12-20-2022 Troponin I.cardiac DL <= 0.01 ng/mL [Mass/Vol] < 2.3 pg/mL 0.0-15.0 [facility] Urea nitrogen [Mass/volume] in Serum or PlasmaOrdered By: Josué Napier 12-20-2022 Urea nitrogen [Mass/Vol] 9 mg/dL 7-25 [facility] Urine clarity by refractomet ry automatedOrdered By: Josué Napier 12-20-2022 Clarity Refractometry automated (U) Clear Clear [facility] Urine glucose measurement by automated test strip (mass/volume)Ordered By: Josué Napier on 12-20-2022 Glucose Auto test strip (U) [Mass/Vol] Normal mg/dL Normal [facility] Urine hemoglobin detection b y automated test stripOrdered By: Josué Napier on 12-20-2022 Hemoglobin Auto test strip Ql (U) Negative Negative [facility] Urine leukocyte esterase det ection by automated test stripOrdered By: Josué Napier on 12-20-2022 Leukocyte esterase Auto test strip Ql (U) Negative Negative [facility] Urobilinogen Auto test strip (U) [Mass/Vol]Ordered By: Josué Napier on 12-20-2022 Urobilinogen (U) [Mass/Vol] Normal mg/dL Normal [facility] WBC Auto (Bld) [#/Vol]Ordere d By: Josué Napier on 12-20-2022 WBC (Bld) [#/Vol] 10.0 10*3/uL 3.8-11.6 [facility] pH Auto test strip (U)Ordere d By: Josué Napier on 12-20-2022 pH (U) 6.5 [pH] 5.0-9.0 [facility] Office Visit (Cardiology)on 12-08-2022 Follow-up visit [...] Metabolic Panel; Status:Active - Retrospective Authorization; Requested for:[id number]; TSH - Thyroid Stimulating Hormone, Serum; Status:Active - Retrospective Authorization; Requested for:[id number]; Vitamin D 25-Hydroxy; Status:Need Information - ABN Disposition,Retrospective Authorization; Requested for:[id number]; Morbid obesity with BMI of 40.0-44.9, adult Healthy Weight Tips; Status:Complete - Retrospective Authorization; Done: [id number] Some eating tips that can help you lose weight.; Status:Complete - Retrospective Authorization; Done: [id number] Palpitations Renew: Metoprolol Succinate ER 50 MG Oral Tablet Extended Release 24 Hour; TAKE 1 TABLET BY MOUTH EVERY DAY PVC (premature ventricular contraction) IO EKG Electrocardiogram- 12 Lead; Status:Complete; Done: [id number] SocHx: Former smoker Tobacco Use Screening; Status:Complete; Done: [id number] Patient Instructions Please bring all medicines, vitamins, [...] have nerve ablations in back with the [place] [facility]. The provider reviewed the following [...] TWICE A DAY Vitamin D3 1.25 MG (31874 UT) Oral CapsuleTAKE 1 CAPSULE Daily Allergies Medication No Known Drug Allergies Recorded By: Suzie Turner; 10/21/2017 2:10:00 PM Social History Problems Daily caf (more content not included)... Normal [facility] Tobacco Screening.on 023 Tobacco use status CPHS b) No [facility] 250 DO Work Phone: Echocardiogramon 11-25-2022 Echocardiography [facility] [address] [place] [address], [address] [facility], [place] [address] TRANSTHORACIC ECHOCARDIOGRAM REPORT Patient Name: LUPE CATARINO Horne Physician: [id number] Azam Mortensen MD Study Date: 11/25/2022 Referring Physician: PHILLIP BENJAMIN MRN/PID: [id number] PCP: Donya Billings MD Accession/Order#: [id number] Department Location: [facility] Date of : 1975 Fellow: Gender: F Nurse: Admit Date: [employer] Sawyer: Shila Tripp LORE, RVT Height: 170.18 cm CC Report to: Weight: 121.56 kg Study Type: Echocardiogram BSA: 2.29 m2 Blood Pressure: 120 /82 mmHg Diagnosis/ICD: I47.1-Supraventricular tachycardia; I49.3-Ventricular premature depolarization; R00.2-Palpitations Indication: Chest Pain, Former Smoker, Morbid Obesity, Hypothyroid, Anxiety, Shortness of Breath, Marijuana Use Procedure/CPT: Echo Complete w Full [id number] Study Detail: The following Echo studies were [...] AoV Mean P.0 mmHg (1.7-11.5mmHg) LVOT Max Des: 0.88 m/s (<=1.1m/s) AoV VTI: 25.70 cm (18-25cm) LVOT VTI: 18.20 cm LVOT Diameter: 2.30 cm (1.8-2.4cm) AoV Area, VTI: 2.94 cm2 (2.5-5.5cm2) AoV Area,Vmax: 3.12 cm2 (2.5-4.5cm2) AoV Dimensionless Index: 0.71 TRICUSPID VALVE/RVSP: Normal Ranges: Peak TR Velocity: 2.38 m/s RV Syst Pressure: 25.7 mmHg (< 30mmHg) PULMONIC VALVE: Normal Ranges: PV Max Des: 0.8 m/s (0.6-0.9m/s) PV Max P.8 mmHg [id number] Azam Mortensen MD Electronically signed on 11/25/2022 at 5:29:01 PM Final Normal [facility] Troponin I.cardiac [Mass/vol ume] in Serum or Plasma by Detection limit <= 0.01 ng/Ordered By: Yogi Michaels on 11-06-2022 Troponin I.cardiac DL <= 0.01 ng/mL [Mass/Vol] < 2.3 pg/mL 0.0-15.0 [facility] Activated partial thrombopla stin time (aPTT) in platelet poor plasma by coagulation aOrdered By: Yogi Michaels on 11-05-2022 aPTT Coag (PPP) [Time] 31.7 s 25.1-36.5 [facility] Basophils Auto (Bld) [#/Vol] Ordered By: Yogi Michaels on 11-05-2022 Basophils (Bld) [#/Vol] 0.1 10*3/uL 0.0-0.2 [facility] Basophils/100 WBC Auto (Bld) Ordered By: Yogi Michaels on 11-05-2022 Basophils/100 WBC (Bld) 0.8 % . [facility] Calcium [Mass/volume] in Ser um or PlasmaOrdered By: Yogi Michaels on 11-05-2022 Calcium [Mass/Vol] 8.6 mg/dL 8.6-10.3 [facility] Carbon dioxide, total [Moles /volume] in Serum or PlasmaOrdered By: Yogi Michaels on 11-05-2022 CO2 [Moles/Vol] 26.4 mmol/L 21.0-31.0 [facility] Chloride [Moles/volume] in S zakia or PlasmaOrdered By: Yogi Michaels on 11-05-2022 Chloride [Moles/Vol] 105 mmol/L 98-107 [facility] Creatinine [Mass/volume] in Serum or PlasmaOrdered By: Yogi Michaels on 11-05-2022 Creatinine [Mass/Vol] 0.58 mg/dL 0.60-1.20 [facility] Eosinophils Auto (Bld) [#/Vo l]Ordered By: Yogi Michaels on 11-05-2022 Eosinophils (Bld) [#/Vol] 0.1 10*3/uL 0.0-0.45 [facility] Eosinophils/100 WBC Auto (Bl d)Ordered By: Yogi Michaels on 11-05-2022 Eosinophils/100 WBC (Bld) 0.9 % . [facility] Erythrocyte distribution wid th Auto (RBC) [Ratio]Ordered By: Yogi Michaels on 11-05-2022 Erythrocyte distribution width (RBC) [Ratio] 14.2 % 11.9-15.3 [facility] Glucose [Mass/volume] in Ser um or PlasmaOrdered By: Yogi Michaels on 11-05-2022 Glucose [Mass/Vol] 74 mg/dL 70-100 [facility] Comment on above: ADA recommended refe rence rangeRandom Glucose Reference Range is dependent on time and content of last meal. Glucose of more than 200 mg/dL in a nonstressed, ambulatory subject supports the diagnosis of Diabetes Mellitus. Hematocrit Auto (Bld) [Volum e fraction]Ordered By: Yogi Michaels on 11-05-2022 Hematocrit (Bld) [Volume fraction] 39.8 % 34.0-46.4 [facility] Hemoglobin [Mass/volume] in BloodOrdered By: Yogi Michaels on 11-05-2022 Hemoglobin (Bld) [Mass/Vol] 13.8 g/dL 11.8-15.4 [facility] Laboratory - CoagulationOrde red By: Yogi Michaels on 11-05-2022 PT Coag (PPP) [Time] 12.6 s 9.0-12.9 [facility] Leukocytes [#/volume] correc emily for nucleated erythrocytes in Blood by Automated counOrdered By: Yogi Michaels on 11-05-2022 WBC corrected for nucl RBC Auto (Bld) [#/Vol] 11.9 10*3/uL 3.8-11.6 [facility] Lymphocytes Auto (Bld) [#/Vo l]Ordered By: Yogi Michaels on 11-05-2022 Lymphocytes (Bld) [#/Vol] 2.4 10*3/uL 1.00-4.8 [facility] Lymphocytes/100 WBC Auto (Bl d)Ordered By: Yogi Michaels on 11-05-2022 Lymphocytes/100 WBC (Bld) 20.0 % . [facility] MCH Auto (RBC) [Entitic mass ]Ordered By: Yogi Michaels on 11-05-2022 MCH (RBC) [Entitic mass] 30.3 pg 24.7-34.3 [facility] MCHC Auto (RBC) [Mass/Vol]Or dered By: Yogi Michaels on 11-05-2022 MCHC (RBC) [Mass/Vol] 34.7 g/dL 32.0-35.0 [facility] MCV Auto (RBC) [Entitic vol] Ordered By: Yogi Michaels on 11-05-2022 MCV (RBC) [Entitic vol] 87.5 fL 80-100 [facility] Magnesium [Mass/volume] in S zakia or PlasmaOrdered By: Yogi Michaels on 11-05-2022 Magnesium [Mass/Vol] 1.5 mg/dL 1.9-2.7 [facility] Monocyte distribution width [Entitic volume] in Blood by AutomatedOrdered By: Yogi Michaels on 11-05-2022 Monocyte distribution width Auto (Bld) [Entitic vol] 17.86 % 0.00-20.00 [facility] Monocytes Auto (Bld) [#/Vol] Ordered By: Yogi Michaels on 11-05-2022 Monocytes (Bld) [#/Vol] 0.7 10*3/uL 0.0-0.8 [facility] Monocytes/100 WBC Auto (Bld) Ordered By: Yogi Michaels on 11-05-2022 Monocytes/100 WBC (Bld) 5.8 % . [facility] Natriuretic peptide B [Mass/ Vol]Ordered By: Yogi Michaels on 11-05-2022 Natriuretic peptide B (Bld) [Mass/Vol] 16.0 pg/mL 5-100 [facility] Neutrophils Auto (Bld) [#/Vo l]Ordered By: Yogi Michaels on 11-05-2022 Neutrophils (Bld) [#/Vol] 8.6 10*3/uL 1.8-7.7 [facility] Neutrophils/100 WBC Auto (Bl d)Ordered By: Yogi Michaels on 11-05-2022 Neutrophils/100 WBC (Bld) 72.5 % . [facility] No Panel InformationOrdered By: Yogi Michaels on 11-05-2022 Estimated GFR (CKD-EPI) > 60.0 mL/Min [facility] Creatinine Clearance (Chem 166.57 [facility] Nucleated erythrocytes [Pres ence] in Blood by Automated countOrdered By: Yogi Michaels on 11-05-2022 Nucleated RBC Auto Ql (Bld) 0.1 /100{WBC} 0-0.5 [facility] Phosphate [Mass/volume] in S zakia or PlasmaOrdered By: Yogi Michaels on 11-05-2022 Phosphate [Mass/Vol] 3.9 mg/dL 3.7-7.2 [facility] Platelet mean volume Auto (B ld) [Entitic vol]Ordered By: Yogi Michaels on 11-05-2022 Platelet mean volume (Bld) [Entitic vol] 8.1 fL 6.3-10.7 [facility] Platelet poor plasma interna tional normalized ratio (INR) by coagulation assay (relatOrdered By: Yogi Michaels on 11-05-2022 INR Coag (PPP) [Relative time] 1.1 {INR} [facility] Comment on above: INR Therapeutic Rang [...] 11-05-2022 Platelets (Bld) [#/Vol] 336 10*3/uL 150-450 [facility] Potassium [Moles/volume] in Serum or PlasmaOrdered By: Yogi Michaels on 11-05-2022 Potassium [Moles/Vol] 3.5 mmol/L 3.5-5.1 [facility] RBC Auto (Bld) [#/Vol]Ordere d By: Yogi Michaels on 11-05-2022 RBC (Bld) [#/Vol] 4.55 10*6/uL 3.60-5.00 [facility] Serum or plasma anion gap de terminationOrdered By: Yogi Michaels on 11-05-2022 Anion gap [Moles/Vol] 11.1 mmol/L 6.0-15.0 [facility] Sodium [Moles/volume] in Ser um or PlasmaOrdered By: Yogi Michaels on 11-05-2022 Sodium [Moles/Vol] 139 mmol/L 136-145 [facility] Urea nitrogen [Mass/volume] in Serum or PlasmaOrdered By: Yogi Michaels on 11-05-2022 Urea nitrogen [Mass/Vol] 10 mg/dL 7-25 [facility] WBC Auto (Bld) [#/Vol]Ordere d By: Yogi Michaels on 11-05-2022 WBC (Bld) [#/Vol] 11.9 10*3/uL 3.8-11.6 [facility] Cardiac Stress Teston 2022 Cardiac Stress Test [address], [address] [place] [address] Exercise Stress Test Patient Name: LUPE PICKARD Ordering Physician: [id number] Benjamin MD Study Date: 10/28/2022 Reading Physician: [id number] Ric Asher MD, [facility] MRN/PID: [id number] Supervising Physician: [id number] Ric Asher MD, [facility] Accession/Order#: [id number] Referring Physician: PHILLIP BENJAMIN Date of : 1975 PCP: Donya Billings MD Gender: F Fellow: Height: 170.18 cm Nurse: Randall Hinton RN Weight: 121.56 kg [place] [employer] Sawyer: REFUGIO BSA: 2.29 m2 Technologist: BMI: 41.98 Additional Staff: kg/m2 Age: 47 years cc report to: Patient Location: cc report to: [id number] Phillip Benjamin MD Study Type: Cardiac Stress Test Diagnosis/ICD: I47.1-Supraventricular tachycardia; R00.2-Palpitations; I49.3-Ventricular premature depolarization Indication: [facility] Procedure/CPT: Stress Test Interpretation-[id number]; Stress Test Supervision-[id number] Falls Risk: Low: Patient has low risk [...] normal sinus rhythm. Stress Stage Data: + +---+--- ---+-------+ HR Sys BP Gray BP + +---+--- ---+-------+ Baseline Resting 77 118 82 + +---+--- ---+-------+ Baseline Standing 77 120 78 + +---+--- ---+-------+ Stage I 126 128 86 + +---+--- ---+-------+ Stage II 137 146 82 + +---+--- ---+-------+ Stage III 162 158 80 + +---+--- ---+-------+ Recovery ECG: The heart rate recovery was normal. + +---+------+- ------+ HR Sys BP Gray BP + +---+------+- ------+ Recovery I 162 158 80 + +---+------+- ------+ Recovery II 122 156 86 + +---+------+- ------+ Recovery III 98 134 88 + +---+------+- ------+ Recovery IV 87 118 82 + +---+------+- ------+ Summary: 1. 1_normal exercise stress test after [...] favorable. 2. Adequate level of stress achieved. [id number] Ric Asher MD, FACC Electronically signed on 10/29/2022 at 1:49:55 PM Final Normal [facility] Cardiac Stress Test [facility] [address] [place] Work Phone: Office [...] Test; Status:Hold For - Scheduling,Retrospective Authorization; Requested for:13Oct2022; Atrial tachycardia, Palpitations, PVC (premature ventricular contraction) Echocardiogram; Status:Hold For - Scheduling,Retrospective Authorization; Requested for:13Oct2022; Morbid obesity with BMI [...] DAILY. Melato (more content not included)... Normal [facility] Tobacco Screening.on 023 Tobacco use status CPHS b) No [facility] [address] [place] Work Phone: Progress Noteson 09-02-2022 Import/Export Clerk Authentication Interface Message Text CONSULTED BY: CC: [...] she can follow up PRN. Normal [facility] [employer] [facility] Import/Export Clerk Authentication Interface Message Text Patient was identified by name and date of . Susan Lomeli RN Patient at risk for falls:No Falls Risk protocol implemented: No Normal [facility] Alanine aminotransferase [En zymatic activity/volume] in Serum or PlasmaOrdered By: Kenyetta Dove on 08-10-2022 ALT [Catalytic activity/Vol] 14 U/L 7-52 [facility] Albumin [Mass/volume] in Ser um or Plasma by Bromocresol green (BCG) dye binding methoOrdered By: Kenyetta Dove on 08-10-2022 Albumin BCG dye [Mass/Vol] 4.0 g/dL 3.5-5.7 [facility] Alkaline phosphatase [Enzyma tic activity/volume] in Serum or PlasmaOrdered By: Kenyetta Dove on 08-10-2022 ALP [Catalytic activity/Vol] 43 U/L 34-104 [facility] Aspartate aminotransferase [ Enzymatic activity/volume] in Serum or PlasmaOrdered By: Kenyetta Dove on 08-10-2022 AST [Catalytic activity/Vol] 10 U/L 13-39 [facility] Basophils Auto (Bld) [#/Vol] Ordered By: Kenyetta Dove on 08-10-2022 Basophils (Bld) [#/Vol] 0.0 10*3/uL 0.0-0.2 [facility] Basophils/100 WBC Auto (Bld) Ordered By: Kenyetta Dove on 08-10-2022 Basophils/100 WBC (Bld) 0.5 % . [facility] Bilirubin.total [Mass/volume ] in Serum or PlasmaOrdered By: Kenyetta Dove on 08-10-2022 Bilirubin [Mass/Vol] 0.6 mg/dL 0.3-1.0 [facility] Calcium [Mass/volume] in Ser um or PlasmaOrdered By: Kenyetta Dove on 08-10-2022 Calcium [Mass/Vol] 9.0 mg/dL 8.6-10.3 [facility] Carbon dioxide, total [Moles /volume] in Serum or PlasmaOrdered By: Kenyetta Dove on 08-10-2022 CO2 [Moles/Vol] 29.0 mmol/L 21.0-31.0 [facility] Chloride [Moles/volume] in S zakia or PlasmaOrdered By: Kenyetta Dove on 08-10-2022 Chloride [Moles/Vol] 104 mmol/L 98-107 [facility] Cholesterol [Mass/volume] in Serum or PlasmaOrdered By: Kenyetta Dove on 08-10-2022 Cholesterol [Mass/Vol] 145 mg/dL 140-200 [facility] Comment on above: Chol less than 200 m g/dl low riskChol 201-239 mg/dl borderline riskChol 240 mg/dl and greater high risk Cholesterol in LDL Calc [Mas s/Vol]Ordered By: Kenyetta Dove on 08-10-2022 Cholesterol in LDL [Mass/Vol] 64 mg/dL 0-100 [facility] Comment on above: LDL ATP III CLASSIFI CATIONLDL less than 100 mg/dL OptimalLDL 100-129 mg/dL Near or above optimalLDL 130-159 mg/dL Borderline highLDL 160-189 mg/dL HighLDL greater than 189 mg/dL Very high Cholesterol in VLDL Calc [Ma ss/Vol]Ordered By: Kenyetta Dove on 08-10-2022 Cholesterol in VLDL [Mass/Vol] 27 mg/dL [facility] Creatinine [Mass/volume] in Serum or PlasmaOrdered By: Kenyetta Dove on 08-10-2022 Creatinine [Mass/Vol] 0.52 mg/dL 0.60-1.20 [facility] Eosinophils Auto (Bld) [#/Vo l]Ordered By: Kenyetta Dove on 08-10-2022 Eosinophils (Bld) [#/Vol] 0.1 10*3/uL 0.0-0.45 [facility] Eosinophils/100 WBC Auto (Bl d)Ordered By: Kenyetta Dove on 08-10-2022 Eosinophils/100 WBC (Bld) 1.3 % . [facility] Erythrocyte distribution wid th Auto (RBC) [Ratio]Ordered By: Kenyetta Dove on 08-10-2022 Erythrocyte distribution width (RBC) [Ratio] 14.6 % 11.9-15.3 [facility] Follitropin [Units/volume] i n Serum or PlasmaOrdered By: Kenyetta Dove on 08-10-2022 Follitropin Qn 5.9 m[IU]/mL [facility] Comment on above: FEMALE NORMALS (GERHARD ENOPAUSE) MID-FOLLICULAR PHASE: 3.9-8.8 mIU/mL MID-CYCLE PEAK: 4.5-22.5 mIU/mL MID-LUTEAL PHASE: 1.8-5.1 mIU/mLFEMALE NORMALS (POSTMENOPAUSE): 16.7-113.6 mIU/mLMALE NORMALS: 1.3-19.3 mIU/mL Globulin Calc (S) [Mass/Vol] Ordered By: Kenyetta Dove on 08-10-2022 Globulin (S) [Mass/Vol] 2.3 g/dL [facility] Glucose [Mass/volume] in Ser um or PlasmaOrdered By: Kenyetta Dove on 08-10-2022 Glucose [Mass/Vol] 98 mg/dL 74-109 [facility] Comment on above: ADA recommended refe [...] from glycated hemoglobin (Bld) [Mass/Vol] 117 mg/dL [facility] Hematocrit Auto (Bld) [Volum e fraction]Ordered By: Kenyetta Dove on 08-10-2022 Hematocrit (Bld) [Volume fraction] 37.0 % 34.0-46.4 [facility] Hemoglobin A1c percentageOrd ered By: Kenyetta Dove on 08-10-2022 HbA1c (Bld) [Mass fraction] 5.7 % 4.3-5.6 [facility] Comment on above: Increased risk for d iabetes: 5.7 - 6.4diabetes: >6.4glycemic control for adults with diabetes: <7.0 Hemoglobin [Mass/volume] in BloodOrdered By: Kenyetta Dove on 08-10-2022 Hemoglobin (Bld) [Mass/Vol] 12.5 g/dL 11.8-15.4 [facility] Laboratory - Chemistry and C hemistry - challengeOrdered By: Kenyetta Dove on 08-10-2022 GFR/1.73 sq M.predicted MDRD (S/P/Bld) [Vol rate/Area] mL/min/{1.73_m2} [facility] Leukocytes [#/volume] correc emily for nucleated erythrocytes in Blood by Automated counOrdered By: Kenyetta Dove on 08-10-2022 WBC corrected for nucl RBC Auto (Bld) [#/Vol] 8.3 10*3/uL 3.8-11.6 [facility] Lymphocytes Auto (Bld) [#/Vo l]Ordered By: Kenyetta Dove on 08-10-2022 Lymphocytes (Bld) [#/Vol] 2.3 10*3/uL 1.00-4.8 [facility] Lymphocytes/100 WBC Auto (Bl d)Ordered By: Kenyetta Dove on 08-10-2022 Lymphocytes/100 WBC (Bld) 28.1 % . [facility] MCH Auto (RBC) [Entitic mass ]Ordered By: eKnyetta Dove on 08-10-2022 MCH (RBC) [Entitic mass] 29.7 pg 24.7-34.3 [facility] MCHC Auto (RBC) [Mass/Vol]Or dered By: Kenyetta Dove on 08-10-2022 MCHC (RBC) [Mass/Vol] 33.7 g/dL 32.0-35.0 [facility] MCV Auto (RBC) [Entitic vol] Ordered By: Kenyetta Dove on 08-10-2022 MCV (RBC) [Entitic vol] 88.0 fL 80-100 [facility] Microalbumin [Mass/volume] i n UrineOrdered By: Kenyetta Dove on 08-10-2022 Albumin DL <= 20 mg/L (U) [Mass/Vol] mg/dL 0.0-1.8 [facility] Monocytes Auto (Bld) [#/Vol] Ordered By: Kenyetta Dove on 08-10-2022 Monocytes (Bld) [#/Vol] 0.3 10*3/uL 0.0-0.8 [facility] Monocytes/100 WBC Auto (Bld) Ordered By: Kenyetta Dove on 08-10-2022 Monocytes/100 WBC (Bld) 3.9 % . [facility] Neutrophils Auto (Bld) [#/Vo l]Ordered By: Kenyetta Dove on 08-10-2022 Neutrophils (Bld) [#/Vol] 5.5 10*3/uL 1.8-7.7 [facility] Neutrophils/100 WBC Auto (Bl d)Ordered By: Kenyetta Dove on 08-10-2022 Neutrophils/100 WBC (Bld) 66.2 % . [facility] No Panel InformationOrdered By: Kenyetta Dove on 08-10-2022 Pharmacy Creatinine Clearance (Chem N/A [facility] Nucleated erythrocytes [Pres ence] in Blood by Automated countOrdered By: Kenyetta Dove on 08-10-2022 Nucleated RBC Auto Ql (Bld) 0.1 /100{WBC} 0-0.5 [facility] Platelet mean volume Auto (B ld) [Entitic vol]Ordered By: Kenyetta Dove on 08-10-2022 Platelet mean volume (Bld) [Entitic vol] 8.2 fL 6.3-10.7 [facility] Platelets Auto (Bld) [#/Vol] Ordered By: Kenyetta Dove on 08-10-2022 Platelets (Bld) [#/Vol] 313 10*3/uL 150-450 [facility] Potassium [Moles/volume] in Serum or PlasmaOrdered By: Kenyetta Dove on 08-10-2022 Potassium [Moles/Vol] 4.1 mmol/L 3.5-5.1 [facility] Protein [Mass/volume] in Ser um or PlasmaOrdered By: Kenyetta Dove on 08-10-2022 Protein [Mass/Vol] 6.3 g/dL 6.4-8.9 [facility] RBC Auto (Bld) [#/Vol]Ordere d By: Kenyetta Dove on 08-10-2022 RBC (Bld) [#/Vol] 4.20 10*6/uL 3.60-5.00 [facility] Serum or plasma albumin/glob ulin mass ratioOrdered By: Kenyetta Dove on 08-10-2022 Albumin/Globulin [Mass ratio] 1.7 {ratio} [facility] Serum or plasma anion gap de terminationOrdered By: Kenyetta Dove on 08-10-2022 Anion gap [Moles/Vol] 10.1 mmol/L 6.0-15.0 [facility] Serum or plasma high density lipoprotein (HDL) cholesterol measurementOrdered By: Kenyetta Dove on 08-10-2022 Cholesterol in HDL [Mass/Vol] 53 mg/dL 35-85 [facility] Comment on above: HDL CHOL ATP-III CLA SSIFICATION Cardiovascular RiskHDL > or equal to 60 mg/dL LOWHDL < 40 mg/dL HIGH Serum or plasma lutropin lisa surement (units/volume)Ordered By: Kenyetta Dove on 08-10-2022 Lutropin Qn 14.0 m[IU]/mL . [facility] Comment on above: Adult Female: Follic ular phase 2.4 - 12.6 Ovulation phase 14.0 - 95.6 Luteal phase 1.0 - 11.4 Postmenopausal 7.7 - 58.5 Serum or plasma progesterone measurement (mass/volume)Ordered By: Kenyetta Dove on 08-10-2022 Progesterone [Mass/Vol] 0.2 ng/mL . [facility] Comment on above: Follicular phase 0.1 - 0.9 Luteal phase 1.8 - 23.9 Ovulation phase 0.1 - 12.0 First trimester 11.0 - 44.3 Second trimester 25.4 - 83.3 Third trimester 58.7 - 214.0 Postmenopausal 0.0 - 0.1Performed at: [facility] [id number] [place], [place] [id number] Director: Ramirez Ca PhD, Phone: [phone] Serum or plasma total choles terol/high density lipoprotein (HDL) cholesterol mass ratOrdered By: Kenyetta Dove on 08-10-2022 Cholesterol.total/Cho lesterol in HDL [Mass ratio] 2.7 {ratio} <5.0 [facility] Sodium [Moles/volume] in Ser um or PlasmaOrdered By: Kenyetta Dove on 08-10-2022 Sodium [Moles/Vol] 139 mmol/L 136-145 [facility] Thyrotropin [Units/volume] i n Serum or PlasmaOrdered By: Kenyetta Dove on 08-10-2022 TSH Qn 0.31 m[IU]/L 0.45-5.33 [facility] Thyroxine (T4) free [Mass/vo lume] in Serum or PlasmaOrdered By: Kenyetta Dove on 08-10-2022 Free T4 [Mass/Vol] 0.80 ng/dL 0.61-1.12 [facility] Total estrogen measurementOr dered By: Kenyetta Dove on 08-10-2022 Estrogen [Mass/Vol] 310 pg/mL . [facility] Comment on above: Prepubertal < 40 Fem giacomo Cycle: 1-10 Days 16 - 328 11-20 Days 34 - 501 21-30 Days 48 - 350 Post-Menopausal 40 - 244Performed at: [facility] [id number] Director: Roger Kenny MD, Phone: [phone] Triglyceride [Mass/volume] i n Serum or PlasmaOrdered By: Kenyetta Dove on 08-10-2022 Triglyceride [Mass/Vol] 139 mg/dL 0-149 [facility] Comment on above: TRIG ATP III CLASSIF ICATIONTRIG less than 150 mg/dL NormalTRIG 150-199 mg/dL Borderline highTRIG 200-500 mg/dL High TRIG greater than 500 mg/dL Very highStandard traceable to the Center for Disease Conrtrol and Prevention (CDC) test method. Triiodothyronine (T3) Free [ Mass/volume] in Serum or PlasmaOrdered By: Kenyetta Dove on 08-10-2022 Free T3 [Mass/Vol] 3.85 pg/mL 2.50-3.90 [facility] Urea nitrogen [Mass/volume] in Serum or PlasmaOrdered By: Kenyetta Dove on 08-10-2022 Urea nitrogen [Mass/Vol] 8 mg/dL 7-25 [facility] Vitamin D+Metabolites [Mass/ volume] in Serum or PlasmaOrdered By: Kenyetta Dove on 08-10-2022 Vitamin D+Metabolites [Mass/Vol] 36.0 ng/mL 30-100 [facility] Comment on above: VITAMIN D STATUS 25( [place])VITAMIN D RANGE (ng/mL) Deficient <20 Insufficient 20 to <30Sufficient 30 to 100Reference: Kirby MF,Adonay NC, Shantelle HOLLOWAY, et al. Evaluation,treatment, and prevention of vitamin D deficiency; an Endocrine Society clinical practice guideline. JCEM. 2010; 96(7):1911-30. WBC Auto (Bld) [#/Vol]Ordere d By: Kenyetta Dove on 08-10-2022 WBC (Bld) [#/Vol] 8.3 10*3/uL 3.8-11.6 [facility] Office Visit (Cardiology)on 07-28-2022 Follow-up visit [...] visit. 4 months with EKG Retrieve [facility] Chief Complaint LUPE PICKARD is being seen [...] TWICE A DAY Vitamin D3 1.25 MG (14531 UT) Oral CapsuleTAKE 1 CAPSULE Daily Allergies [...] Fall risk assessment c) Not medically indicated [facility] 250 DO Work Phone: Tobacco use status CP b) No [facility] 250 DO Work Phone: Tobacco Screening. Yes [facility] 250 DO Work Phone: No Panel Informationon 07-16 [facility] 250 DO Work Phone: Basophils Auto (Bld) [#/Vol] Ordered By: Steve Coronel on 06-21-2022 Basophils (Bld) [#/Vol] 0.1 10*3/uL 0.0-0.2 [facility] Basophils/100 WBC Auto (Bld) Ordered By: Steve Coronel on 06-21-2022 Basophils/100 WBC (Bld) 0.6 % . [facility] Bilirubin Test strip Ql (U)O rdered By: Steve Coronel on 06-21-2022 Bilirubin Ql (U) Negative Negative [facility] Body fluid albumin measureme nt (mass/volume)Ordered By: Steve Coronel on 06-21-2022 Albumin (Body fld) [Mass/Vol] 3.7 g/dL 3.2-5.5 [facility] Color Auto (U)Ordered By: Eduardo Coronel on 06-21-2022 Color (U) Yellow Yellow [facility] Creatinine and Glomerular fi ltration rate.predicted panel (S/P/Bld)Ordered By: Steve Coronel on 06-21-2022 Creatinine [Mass/Vol] 0.51 mg/dL 0.44-1.03 [facility] Eosinophils Auto (Bld) [#/Vo l]Ordered By: Steve Coronel on 06-21-2022 Eosinophils (Bld) [#/Vol] 0.1 10*3/uL 0.0-0.45 [facility] Eosinophils/100 WBC Auto (Bl d)Ordered By: Steve Coronel on 06-21-2022 Eosinophils/100 WBC (Bld) 1.2 % . [facility] Erythrocyte distribution wid th Auto (RBC) [Ratio]Ordered By: Steve Coronel on 06-21-2022 Erythrocyte distribution width (RBC) [Ratio] 15.0 % 11.9-15.3 [facility] Estimated glomerular filtrat ion rate (GFR) non- AmericanOrdered By: Steve Coronel on 06-21-2022 GFR/1.73 sq M.predicted among non-blacks MDRD (S/P/Bld) [Vol rate/Area] > 60 mL/Min [facility] Globulin Calc (S) [Mass/Vol] Ordered By: Steve Coronel on 06-21-2022 Globulin (S) [Mass/Vol] 3.1 g/dL [facility] Hematocrit Auto (Bld) [Volum e fraction]Ordered By: Steve Coronel on 06-21-2022 Hematocrit (Bld) [Volume fraction] 40.1 % 34.0-46.4 [facility] Hemoglobin [Mass/volume] in BloodOrdered By: Steve Coronel on 06-21-2022 Hemoglobin (Bld) [Mass/Vol] 13.2 g/dL 11.8-15.4 [facility] Ketones Auto test strip (U) [Mass/Vol]Ordered By: Steve Coronel on 06-21-2022 Ketones (U) [Mass/Vol] Negative Negative [facility] Laboratory - Chemistry and C hemistry - challengeOrdered By: Steve Coronel on 06-21-2022 Lipase [Catalytic activity/Vol] 28.0 U/L 22-51 [facility] Natriuretic peptide B (Bld) [Mass/Vol] 35.0 pg/mL 5-100 [facility] Leukocytes [#/volume] correc emily for nucleated erythrocytes in Blood by Automated counOrdered By: Steve Coronel on 06-21-2022 WBC corrected for nucl RBC Auto (Bld) [#/Vol] 9.5 10*3/uL 3.8-11.6 [facility] Lymphocytes Auto (Bld) [#/Vo l]Ordered By: Steve Coronel on 06-21-2022 Lymphocytes (Bld) [#/Vol] 2.8 10*3/uL 1.00-4.8 [facility] Lymphocytes/100 WBC Auto (Bl d)Ordered By: Steve Coronel on 06-21-2022 Lymphocytes/100 WBC (Bld) 29.5 % . [facility] MCH Auto (RBC) [Entitic mass ]Ordered By: Steve Coronel on 06-21-2022 MCH (RBC) [Entitic mass] 28.7 pg 24.7-34.3 [facility] MCHC Auto (RBC) [Mass/Vol]Or dered By: Steve Coronel on 06-21-2022 MCHC (RBC) [Mass/Vol] 33.0 g/dL 32.0-35.0 [facility] [place] MCV Auto (RBC) [Entitic vol] Ordered By: Steve Coronel on 06-21-2022 MCV (RBC) [Entitic vol] 86.9 fL 80-100 [facility] Monocyte distribution width [Entitic volume] in Blood by AutomatedOrdered By: Steve Coronel on 06-21-2022 Monocyte distribution width Auto (Bld) [Entitic vol] 18.39 % 0.00-20.00 [facility] Monocytes Auto (Bld) [#/Vol] Ordered By: Steve Coronel on 06-21-2022 Monocytes (Bld) [#/Vol] 0.4 10*3/uL 0.0-0.8 [facility] Monocytes/100 WBC Auto (Bld) Ordered By: Steve Coronel on 06-21-2022 Monocytes/100 WBC (Bld) 3.8 % . [facility] Neutrophils Auto (Bld) [#/Vo l]Ordered By: Steve Coronel on 06-21-2022 Neutrophils (Bld) [#/Vol] 6.2 10*3/uL 1.8-7.7 [facility] Neutrophils/100 WBC Auto (Bl d)Ordered By: Steve Coronel on 06-21-2022 Neutrophils/100 WBC (Bld) 64.9 % . [facility] Nitrite Test strip Ql (U)Ord ered By: Steve Coronel on 06-21-2022 Nitrite Ql (U) Negative Negative [facility] No Panel InformationOrdered By: Steve Coronel on 06-21-2022 D-Dimer Quantitative (PE/DVT) < 200 ng/mL 0-243 [facility] Comment on above: The reference range [...] conditions. Estimated GFR () > 60 mL/Min [facility] Comment on above: GFR estimated refere nce range: According to KDOQI guidelines, <60 ml/min/1.73m2 is sufficient to diagnose a patient with chronic kidney disease. Pharmacy Creatinine Clearance (Chem N/A [facility] Nucleated erythrocytes [Pres ence] in Blood by Automated countOrdered By: Steve Coronel on 06-21-2022 Nucleated RBC Auto Ql (Bld) 0.1 /100{WBC} 0-0.5 [facility] Platelet mean volume Auto (B ld) [Entitic vol]Ordered By: Steve Coronel on 06-21-2022 Platelet mean volume (Bld) [Entitic vol] 8.0 fL 6.3-10.7 [facility] Platelets Auto (Bld) [#/Vol] Ordered By: Steve Coronel on 06-21-2022 Platelets (Bld) [#/Vol] 356 10*3/uL 150-450 [facility] Protein Auto test strip (U) [Mass/Vol]Ordered By: Steve Coronel on 06-21-2022 Protein (U) [Mass/Vol] Negative Negative [facility] Protein [Mass/volume] in Ser um or PlasmaOrdered By: Steve Coronel on 06-21-2022 Protein [Mass/Vol] 6.8 g/dL 6.1-7.9 [facility] RBC Auto (Bld) [#/Vol]Ordere d By: Steve Coronel on 06-21-2022 RBC (Bld) [#/Vol] 4.61 10*6/uL 3.60-5.00 [facility] Serum or plasma alanine ott otransferase measurement without P-5'-P (enzymatic activiOrdered By: Steve Coronel on 06-21-2022 ALT No additional P-5'-P [Catalytic activity/Vol] 17 U/L 10-60 [facility] Serum or plasma albumin/glob ulin mass ratioOrdered By: Steve Coronel on 06-21-2022 Albumin/Globulin [Mass ratio] 1.2 {ratio} [facility] Serum or plasma alkaline chirag sphatase measurement (enzymatic activity/volume)Ordered By: Steve Coronel on 06-21-2022 ALP [Catalytic activity/Vol] 52 U/L 32-92 [facility] Serum or plasma anion gap de terminationOrdered By: Steve Coronel on 06-21-2022 Anion gap [Moles/Vol] 12.7 mmol/L 6.0-15.0 [facility] Serum or plasma aspartate am inotransferase measurement (enzymatic activity/volume)Ordered By: Steve Coronel on 06-21-2022 AST [Catalytic activity/Vol] 19 U/L 10-42 [facility] Serum or plasma calcium merari urement (mass/volume)Ordered By: Steve Coronel on 06-21-2022 Calcium [Mass/Vol] 9.1 mg/dL 8.2-10.2 [facility] Serum or plasma chloride lisa surement (moles/volume)Ordered By: Steve Coronel on 06-21-2022 Chloride [Moles/Vol] 100 mmol/L 95-114 [facility] Serum or plasma glucose merari urement (mass/volume)Ordered By: Steve Coronel on 06-21-2022 Glucose [Mass/Vol] 97 mg/dL 70-100 [facility] Comment on above: ADA recommended refe rence rangeRandom Glucose Reference Range is dependent on time and content of last meal. Glucose of more than 200 mg/dL in a nonstressed, ambulatory subject supports the diagnosis of Diabetes Mellitus. Serum or plasma potassium me asurement (moles/volume)Ordered By: Steve Coronel on 06-21-2022 Potassium [Moles/Vol] 3.9 mmol/L 3.5-5.1 [facility] Serum or plasma sodium measu rement (moles/volume)Ordered By: Steve Coronel on 06-21-2022 Sodium [Moles/Vol] 135 mmol/L 136-146 [facility] Serum or plasma total biliru bin measurement (mass/volume)Ordered By: Steve Coronel on 06-21-2022 Bilirubin [Mass/Vol] 0.6 mg/dL 0.3-1.2 [facility] Serum or plasma total carbon dioxide measurement (moles/volume)Ordered By: Steve Coronel on 06-21-2022 CO2 [Moles/Vol] 26.2 mmol/L 22.0-30.0 [facility] Serum or plasma urea nitroge n measurement (mass/volume)Ordered By: Steve Coronel on 06-21-2022 Urea nitrogen [Mass/Vol] 8 mg/dL 02-19 [facility] Specific gravity Auto test s trip (U) [Rel density]Ordered By: Steve Coronel on 06-21-2022 Specific gravity (U) [Rel density] 1.005 1.001-1.03 0 [facility] Troponin I.cardiac [Mass/vol ume] in Serum or Plasma by High sensitivity methodOrdered By: Steve Coronel on 06-21-2022 Troponin I.cardiac High sensitivity method [Mass/Vol] < 3 pg/mL 0-15 [facility] Urine clarity by refractomet ry automatedOrdered By: Steve Coronel on 06-21-2022 Clarity Refractometry automated (U) Clear Clear [facility] Urine glucose measurement by automated test strip (mass/volume)Ordered By: Steve Coronel on 06-21-2022 Glucose Auto test strip (U) [Mass/Vol] Normal mg/dL Normal [facility] Urine hemoglobin detection b y automated test stripOrdered By: Steve Coronel on 06-21-2022 Hemoglobin Auto test strip Ql (U) Negative Negative [facility] Urine leukocyte esterase det ection by automated test stripOrdered By: Steve Coronel on 06-21-2022 Leukocyte esterase Auto test strip Ql (U) Negative Negative [facility] Urobilinogen Auto test strip (U) [Mass/Vol]Ordered By: Steve Coronel on 06-21-2022 Urobilinogen (U) [Mass/Vol] Normal mg/dL Normal [facility] WBC Auto (Bld) [#/Vol]Ordere d By: Steve Coronel on 06-21-2022 WBC (Bld) [#/Vol] 9.5 10*3/uL 3.8-11.6 [facility] pH Auto test strip (U)Ordere d By: Steve Coronel on 06-21-2022 pH (U) 7.5 [pH] 5.0-9.0 [facility] Office Visit (Cardiology)on 06-04-2022 Follow-up visit [...] (COVID-19) RNA CESAR+probe Ql (Unsp spec) Positive [employer] Other COVID + FLU Quick Testing Negative [employer] Other Quick Strepon 04-28-2022 S. pyogenes Org specific cx Ql (Throat) Negative [employer] Other Quick Strep [employer] Other Otheron 04-18-1998 CONVERTED ELECTRONIC SIGNATURE [employer] (Electronic signature on file) Final Signed Out: 04/18/1998 09:51 [facility] CONVERTED FINAL DIAGNOSIS SPECIMEN ADEQUACY SATISFACTORY FOR EVALUATION GENERAL CATEGORIZATION WITHIN NORMAL LIMITS HORMONAL EVALUATION HORMONAL PATTERN COMPATIBLE WITH AGE AND HISTORY [facility] CONVERTED ORDERING PROVIDER Ordering Provider: PETER LOBO [facility] CONVERTED PAP DISCLAIMER The Pap test serves as a screening tool for early detection of cervical cancer. The Pap test does not represent a final diagnostic test for cervical cancer. Furthermore, the Pap test was not designed to screen for other malignancies (endometrial, ovarian cancer, etc....). False negatives and false positives have occurred. If clinically indicated, further patient evaluation is recommended. [facility] Vital Signs Date Time Vital Sign Value Performing Clinician Facility 12-13-2024 10:42-0400 Body height 170.2 cm Melissa Coon MD Work Phone: [facility] 12-13-2024 10:42-0400 Body mass index (BMI) [Ratio] 50.12 kg/m2 Melissa Coon MD Work Phone: [facility] 12-13-2024 10:42-0400 Body weight 145.15 kg Melissa Coon MD Work Phone: [facility] 12-13-2024 10:42-0400 Diastolic blood pressure 86 mm[Hg] Melissa Coon MD Work Phone: [facility] 12-13-2024 10:42-0400 Heart rate 79 /min Melissa Coon MD Work Phone: [facility] 12-13-2024 10:42-0400 SaO2% (BldA) [Mass fraction] 97 % Melissa Coon MD Work Phone: [facility] 12-13-2024 10:42-0400 Systolic blood pressure 124 mm[Hg] Melissa Coon MD Work Phone: [facility] 12-06-2024 15:46-0400 Body height 170.2 cm Omid Quan NP Work Phone: [facility] 12-06-2024 15:46-0400 Body mass index (BMI) [Ratio] 50.12 kg/m2 Omid Quan [employer] Work Phone: [facility] 12-06-2024 15:46-0400 Body weight 145.15 kg Omid Quan [employer] WORK[employer] Work Phone: [facility] 12-06-2024 15:46-0400 Diastolic blood pressure 80 mm[Hg] Omid Quan [employer] WORKER Work Phone: [facility] 12-06-2024 15:46-0400 Heart rate 90 /min Omid Petersos [employer] WORKER Work Phone: [facility] 12-06-2024 15:46-0400 SaO2% (BldA) [Mass fraction] 97 % Omid Quan [employer] WORK[employer] Work Phone: [facility] 12-06-2024 15:46-0400 Systolic blood pressure 128 mm[Hg] Omid Petersos [employer] WORKER Work Phone: [facility] 11-29-2024 11:15-0400 Body height 170.18 cm Melissa Coon MD Work Phone: [facility] 11-29-2024 11:15-0400 Body mass index (BMI) [Ratio] 49.4 kg/m2 Melissa Coon MD Work Phone: [facility] 11-29-2024 11:15-0400 Body weight 143.33 kg Melissa Coon MD Work Phone: [facility] 11-29-2024 09:53-0400 Body height 170.18 cm Melissa Coon MD Work Phone: [facility] 11-29-2024 09:53-0400 Body mass index (BMI) [Ratio] 109 kg/m2 Melissa Coon MD Work Phone: [facility] 11-29-2024 09:53-0400 Body weight 316 kg Melissa Coon MD Work Phone: [facility] 11-29-2024 09:53-0400 Diastolic blood pressure 83 mm[Hg] Melissa Coon MD Work Phone: [facility] 11-29-2024 09:53-0400 Heart rate 79 /min Melissa Coon MD Work Phone: [facility] 11-29-2024 09:53-0400 SaO2% (BldA) [Mass fraction] 97 % Melissa Coon MD Work Phone: [facility] 11-29-2024 09:53-0400 Systolic blood pressure 143 mm[Hg] Melissa Coon MD Work Phone: [facility] 11-21-2024 10:37-0400 Body mass index (BMI) [Ratio] 48.4 kg/m2 Dalia Risaliti [employer] WORKER Work Phone: [facility] 11-21-2024 10:37-0400 Body weight 140.16 kg Dalia Risaliti [employer] D[employer] WORKER Work Phone: [facility] 11-21-2024 10:37-0400 Diastolic blood pressure 80 mm[Hg] Dalia Risaliti [employer] D[employer] WORKER Work Phone: [facility] 11-21-2024 10:37-0400 Heart rate 75 /min Dalia Risaliti [employer] WORKER Work Phone: [facility] 11-21-2024 10:37-0400 SaO2% (BldA) [Mass fraction] 97 % Dalia Risaliti [employer] WORKER Work Phone: [facility] 11-21-2024 10:37-0400 Systolic blood pressure 140 mm[Hg] Dalia Risaliti [employer] D[employer] WORKER Work Phone: [facility] 10-25-2024 08:07-0400 Diastolic blood pressure 82 mm[Hg] Melissa Coon MD Work Phone: [facility] 10-25-2024 08:07-0400 Heart rate 76 /min Melissa Coon MD Work Phone: [facility] 10-25-2024 08:07-0400 Systolic blood pressure 146 mm[Hg] Melissa Coon MD Work Phone: [facility] 10-09-2024 10:17-0400 Body height 170.2 cm Summer Workman PA Work Phone: [facility] 10-09-2024 10:17-0400 Body mass index (BMI) [Ratio] 48.87 kg/m2 Summer Workman PA Work Phone: [facility] 10-09-2024 10:17-0400 Body weight 141.52 kg Summer Workman PA Work Phone: [facility] 10-09-2024 10:17-0400 Diastolic blood pressure 80 mm[Hg] Summer Workman PA Work Phone: [facility] 10-09-2024 10:17-0400 Heart rate 82 /min [facility] [employer] Work Phone: [facility] 10-09-2024 10:17-0400 SaO2% (BldA) [Mass fraction] 97 % Summer Workman PA Work Phone: [facility] 10-09-2024 10:17-0400 Systolic blood pressure 134 mm[Hg] [facility] [employer] Work Phone: [facility] 05-14-2024 14:13-0500 Body height 170.18 cm Melissa Coon MD Work Phone: [facility] 05-14-2024 14:13-0500 Body mass index (BMI) [Ratio] 42.3 kg/m2 Melissa Coon MD Work Phone: [facility] 05-14-2024 14:13-0500 Body temperature 98.2 [degF] Melissa Coon MD Work Phone: [facility] 05-14-2024 14:13-0500 Body weight 122.46 kg Melissa Coon MD Work Phone: [facility] 05-14-2024 14:13-0500 Diastolic blood pressure 85 mm[Hg] Melissa Coon MD Work Phone: [facility] 05-14-2024 14:13-0500 Heart rate 74 /min Melissa Coon MD Work Phone: [facility] 05-14-2024 14:13-0500 Respiratory rate 18 /min Melissa Coon MD Work Phone: [facility] 05-14-2024 14:13-0500 SaO2% (BldA) [Mass fraction] 97 % Melissa Coon MD Work Phone: [facility] 05-14-2024 14:13-0500 Systolic blood pressure 141 mm[Hg] Melissa Coon MD Work Phone: [facility] 03-07-2024 11:08-0400 Body mass index (BMI) [Ratio] 41.97 kg/m2 [employer] [facility] 03-07-2024 11:08-0400 Body weight 121.56 kg [employer] [facility] 03-07-2024 11:08-0400 Diastolic blood pressure 88 mm[Hg] [employer] [facility] 03-07-2024 11:08-0400 Heart rate 91 /min [employer] [facility] 03-07-2024 11:08-0400 SaO2% (BldA) [Mass fraction] 98 % [facility] [employer] Analyst[employer] [facility] 03-07-2024 11:08-0400 Systolic blood pressure 138 mm[Hg] [employer] [facility] 02-28-2024 09:45-0400 Body height 170.2 cm Kenyetta Dove MD Work Phone: [facility] 02-28-2024 09:45-0400 Body mass index (BMI) [Ratio] 41.97 kg/m2 Kenyetta Dove MD Work Phone: [facility] 02-28-2024 09:45-0400 Body weight 121.56 kg Kenyetta Dove MD Work Phone: [facility] 02-28-2024 09:45-0400 Diastolic blood pressure 84 mm[Hg] Kenyetta Dove MD Work Phone: [facility] 02-28-2024 09:45-0400 Heart rate 78 /min Kenyetta Dove MD Work Phone: [facility] 02-28-2024 09:45-0400 Respiratory rate 18 /min Kenyetta Dove MD Work Phone: [facility] 02-28-2024 09:45-0400 Systolic blood pressure 126 mm[Hg] Kenyetta Dove MD Work Phone: [facility] 01-24-2024 15:28-0400 Body height 170.2 cm Melissa Coon MD Work Phone: [facility] 01-24-2024 15:28-0400 Body mass index (BMI) [Ratio] 43.54 kg/m2 Melissa Coon MD Work Phone: [facility] 01-24-2024 15:28-0400 Body weight 126.1 kg Melissa Coon MD Work Phone: [facility] 01-24-2024 15:28-0400 Diastolic blood pressure 82 mm[Hg] Melissa Coon MD Work Phone: [facility] 01-24-2024 15:28-0400 Heart rate 64 /min Melissa Coon MD Work Phone: [facility] 01-24-2024 15:28-0400 SaO2% (BldA) [Mass fraction] 95 % Melissa Coon MD Work Phone: [facility] 01-24-2024 15:28-0400 Systolic blood pressure 138 mm[Hg] Melissa Coon MD Work Phone: [facility] 12-05-2023 11:42-0400 Body height 170.18 cm DO Melissa Browney II Work Phone: [facility] 12-05-2023 11:42-0400 Body mass index (BMI) [Ratio] 40.7 kg/m2 DO Melissa Cromley II Work Phone: [facility] 12-05-2023 11:42-0400 Body temperature 98.2 [degF] DO Melissa Cromley II Work Phone: [facility] 12-05-2023 11:42-0400 Body weight 117.93 kg DO Melissa Anastasiamley II Work Phone: [facility] 12-05-2023 11:42-0400 Diastolic blood pressure 94 mm[Hg] DO Melissa Cromley II Work Phone: [facility] 12-05-2023 11:42-0400 Heart rate 78 /min DO Melissa Cromley II Work Phone: [facility] 12-05-2023 11:42-0400 SaO2% (BldA) [Mass fraction] 94 % DO Melissa Cromley II Work Phone: [facility] 12-05-2023 11:42-0400 Systolic blood pressure 138 mm[Hg] DO Melissa Cromley II Work Phone: [facility] 10-03-2023 11:47-0400 Body height 170.18 cm DO Melissa Cromley II Work Phone: [facility] 10-03-2023 11:47-0400 Body mass index (BMI) [Ratio] 45.2 kg/m2 DO Melissa Cromley II Work Phone: [facility] 10-03-2023 11:47-0400 Body weight 131 kg DO Melissa Cromley II Work Phone: [facility] 09-20-2023 11:34-0400 Body height 170.18 cm DO Melissa Cromley II Work Phone: [facility] 09-20-2023 11:34-0400 Body temperature 98.1 [degF] DO Melissa Cromley II Work Phone: [facility] 09-20-2023 11:34-0400 Body weight 131.9 kg DO Melissa Cromley II Work Phone: [facility] 09-20-2023 11:34-0400 Diastolic blood pressure 101 mm[Hg] DO Melissa Cromley II Work Phone: [facility] 09-20-2023 11:34-0400 Heart rate 86 /min DO Melissa Cromley II Work Phone: [facility] 09-20-2023 11:34-0400 Respiratory rate 19 /min DO Melissa Cromley II Work Phone: [facility] 09-20-2023 11:34-0400 SaO2% (BldA) [Mass fraction] 97 % DO Melissa Cromley II Work Phone: [facility] 09-20-2023 11:34-0400 Systolic blood pressure 167 mm[Hg] DO Melissa Cromley II Work Phone: [facility] 07-22-2023 10:32-0500 Body temperature 98.2 [degF] DO Melissa Cromley II Work Phone: [facility] 07-22-2023 10:32-0500 Diastolic blood pressure 78 mm[Hg] DO Melissa Cromley II Work Phone: [facility] 07-22-2023 10:32-0500 Heart rate 79 /min DO Melissa Cromley II Work Phone: [facility] 07-22-2023 10:32-0500 Respiratory rate 16 /min DO Melissa Cromley II Work Phone: [facility] 07-22-2023 10:32-0500 SaO2% (BldA) [Mass fraction] 96 % DO Melissa Cromley II Work Phone: [facility] 07-22-2023 10:32-0500 Systolic blood pressure 132 mm[Hg] DO Melissa Cromley II Work Phone: [facility] 07-22-2023 08:20-0500 Body height 170.18 cm DO Melissa Cromley II Work Phone: [facility] 07-22-2023 08:20-0500 Body weight 124.2 kg DO Melissa Cromley II Work Phone: [facility] 07-08-2023 14:25-0500 Body height 170.18 cm Roula James Other [employer] Other 07-08-2023 14:25-0500 Body mass index (BMI) [Ratio] 42.28 kg/m2 Roula James Other [employer] Other 07-08-2023 14:25-0500 Body temperature 99.6 [degF] Roula James Other [employer] Other 07-08-2023 14:25-0500 Body weight 122.47 kg Roula James Other [employer] Other 07-08-2023 14:25-0500 Diastolic blood pressure 85 mm[Hg] Roula James Other [employer] Other 07-08-2023 14:25-0500 SaO2% (BldA) [Mass fraction] 96 % Roula James Other [employer] Other 07-08-2023 14:25-0500 Systolic blood pressure 140 mm[Hg] Roula James Other [employer] Other 03-29-2023 10:13-0400 Diastolic blood pressure 98 mm[Hg] PHYSICIAN NO [facility] 03-29-2023 10:13-0400 Heart rate 70 /min PHYSICIAN NO [facility] 03-29-2023 10:13-0400 Respiratory rate 20 /min PHYSICIAN NO [facility] 03-29-2023 10:13-0400 SaO2% (BldA) [Mass fraction] 98 % PHYSICIAN NO [facility] 03-29-2023 10:13-0400 Systolic blood pressure 167 mm[Hg] PHYSICIAN NO [facility] 03-29-2023 08:29-0400 Body height 170.18 cm PHYSICIAN NO [facility] 03-29-2023 08:29-0400 Body weight 120.2 kg PHYSICIAN FILIPE MOREIRA [facility] 03-27-2023 13:45-0400 Body height 170.18 cm Oscar Reed Other [employer] Other 03-27-2023 13:45-0400 Body mass index (BMI) [Ratio] 42.03 kg/m2 Oscar Reed Other [employer] Other 03-27-2023 13:45-0400 Body temperature 98.1 [degF] Oscar Reed Other [employer] Other 03-27-2023 13:45-0400 Body weight 121.75 kg Oscar Reed Other [employer] Other 03-27-2023 13:45-0400 Diastolic blood pressure 92 mm[Hg] Oscar Reed Other [employer] Other 03-27-2023 13:45-0400 Respiratory rate 18 /min Oscar Reed Other [employer] Other 03-27-2023 13:45-0400 SaO2% (BldA) [Mass fraction] 97 % Oscar Reed Other [employer] Other 03-27-2023 13:45-0400 Systolic blood pressure 156 mm[Hg] Oscar Reed Other [employer] Other 02-17-2023 13:15-0400 Body height 170.18 cm Beny Hoskins Other [employer] Other 02-17-2023 13:15-0400 Body mass index (BMI) [Ratio] 42.03 kg/m2 Beny Hoskins Other [facility] [employer] Other 02-17-2023 13:15-0400 Body weight 121.75 kg Beny Hoskins Other [facility] [employer] Other 02-17-2023 13:15-0400 Diastolic blood pressure 79 mm[Hg] Beny Hoskins Other [facility] [employer] Other 02-17-2023 13:15-0400 Systolic blood pressure 139 mm[Hg] Beny Hoskins Other [facility] [employer] Other 01-24-2023 10:47-0400 Diastolic blood pressure 84 mm[Hg] DO Donya Billings Work Phone: [facility] 01-24-2023 10:47-0400 Heart rate 94 /min DO Donya Billings Work Phone: [facility] 01-24-2023 10:47-0400 Respiratory rate 20 /min DO Donya Billings Work Phone: [facility] 01-24-2023 10:47-0400 SaO2% (BldA) [Mass fraction] 98 % DO Donya Billings Work Phone: [facility] 01-24-2023 10:47-0400 Systolic blood pressure 181 mm[Hg] DO Donya Billings Work Phone: [facility] 01-24-2023 09:58-0400 Body height 170.18 cm DO Donya Billings Work Phone: [facility] 01-24-2023 09:58-0400 Body temperature 98 [degF] DO Donya Billings Work Phone: [facility] 01-24-2023 09:58-0400 Body weight 122.75 kg DO Donya Billings Work Phone: [facility] 12-30-2022 23:30-0400 Diastolic blood pressure 84 mm[Hg] DO Donya Billings Work Phone: [facility] 12-30-2022 23:30-0400 Heart rate 81 /min DO Donya Billings Work Phone: [facility] 12-30-2022 23:30-0400 Respiratory rate 20 /min DO Donya Billings Work Phone: [facility] 12-30-2022 23:30-0400 SaO2% (BldA) [Mass fraction] 98 % DO Donya Billings Work Phone: [facility] 12-30-2022 23:30-0400 Systolic blood pressure 176 mm[Hg] DO Donya Billings Work Phone: [facility] 12-30-2022 17:21-0400 Body height 170.18 cm DO Donya Billings Work Phone: [facility] 12-30-2022 17:21-0400 Body temperature 97.6 [degF] DO Donya Billings Work Phone: [facility] 12-30-2022 17:21-0400 Body weight 122.1 kg DO Donya Billings Work Phone: [facility] 12-20-2022 16:32-0400 Diastolic blood pressure 87 mm[Hg] DO Donya Billings Work Phone: [facility] 12-20-2022 16:32-0400 Heart rate 80 /min DO Donya Billings Work Phone: [facility] 12-20-2022 16:32-0400 Respiratory rate 18 /min DO Donya Billings Work Phone: [facility] 12-20-2022 16:32-0400 SaO2% (BldA) [Mass fraction] 98 % DO Donya Billings Work Phone: [facility] 12-20-2022 16:32-0400 Systolic blood pressure 137 mm[Hg] DO Donya Billings Work Phone: [facility] 12-20-2022 12:47-0400 Body height 170.18 cm DO Donya Billings Work Phone: [facility] 12-20-2022 12:47-0400 Body temperature 98.7 [degF] DO Donya Billings Work Phone: [facility] 12-20-2022 12:47-0400 Body weight 121.5 kg DO Donya Billings Work Phone: [facility] 12-08-2022 08:50-0400 Body height 170.18 cm Donya Billings Work Phone: [facility] [address] DO Work Phone: 12-08-2022 08:50-0400 Body mass index (BMI) [Ratio] 42.29 kg/m2 Donya Billings Work Phone: [facility] [address] DO Work Phone: 12-08-2022 08:50-0400 Body surface area Derived from formula 2.3 m2 Donya Billings Work Phone: [facility] [address] DO Work Phone: 12-08-2022 08:50-0400 Body weight 122.47 kg Donya Billings Work Phone: [facility] [address] DO Work Phone: 12-08-2022 08:50-0400 Diastolic blood pressure 80 mm[Hg] Donya Billings Work Phone: [facility] [address] DO Work Phone: 12-08-2022 08:50-0400 Heart rate 80 /min Donya Billings Work Phone: [facility] [address] DO Work Phone: 12-08-2022 08:50-0400 Systolic blood pressure 128 mm[Hg] Donya Billings Work Phone: [facility] [address] DO Work Phone: 11-06-2022 00:59-0400 Diastolic blood pressure 68 mm[Hg] DO Donya Billings Work Phone: [facility] 11-06-2022 00:59-0400 Heart rate 86 /min DO Donya Billings Work Phone: [facility] 11-06-2022 00:59-0400 Respiratory rate 19 /min DO Donya Billings Work Phone: [facility] 11-06-2022 00:59-0400 SaO2% (BldA) [Mass fraction] 99 % DO Donya Billings Work Phone: [facility] 11-06-2022 00:59-0400 Systolic blood pressure 139 mm[Hg] DO Donya Billings Work Phone: [facility] 11-05-2022 20:12-0400 Body height 170.18 cm DO Donya Billings Work Phone: [facility] 11-05-2022 20:12-0400 Body temperature 97.9 [degF] DO Donya Billings Work Phone: [facility] 11-05-2022 20:12-0400 Body weight 122.95 kg DO Donya Billings Work Phone: [facility] 10-13-2022 10:03-0400 Body height 170.18 cm Donya Billings Work Phone: [facility] [address] [place] Work Phone: 10-13-2022 10:03-0400 Body mass index (BMI) [Ratio] 41.98 kg/m2 Donya Billings Work Phone: [facility] [address] [place] Work Phone: 10-13-2022 10:03-0400 Body surface area Derived from formula 2.29 m2 Donya Billings Work Phone: [facility] [address] [place] Work Phone: 10-13-2022 10:03-0400 Body weight 121.56 kg Donya Andriy Billings Work Phone: [facility] [address] [place] Work Phone: 10-13-2022 10:03-0400 Diastolic blood pressure 68 mm[Hg] Donya Andriy Billings Work Phone: [facility] [address] [place] Work Phone: 10-13-2022 10:03-0400 Heart rate 68 /min Donya Billings Work Phone: [facility] [address] [place] Work Phone: 10-13-2022 10:03-0400 Systolic blood pressure 122 mm[Hg] Donya Billings Work Phone: [facility] [address] [place] Work Phone: 09-01-2022 14:30-0400 Body height 170.18 cm Oliver Mario Other [employer] Other 09-01-2022 14:30-0400 Body mass index (BMI) [Ratio] 41.97 kg/m2 Oliver Mario Other [employer] Other 09-01-2022 14:30-0400 Body weight 121.56 kg Oliver Mario Other [employer] Other 09-01-2022 14:30-0400 Diastolic blood pressure 96 mm[Hg] Oliver Mario Other [employer] Other 09-01-2022 14:30-0400 Systolic blood pressure 159 mm[Hg] Oliver Mario Other [employer] Other 07-28-2022 13:20-0500 Body height 170.18 cm Donya Billings Work Phone: [facility] [address] DO Work Phone: 07-28-2022 13:20-0500 Body mass index (BMI) [Ratio] 42.13 kg/m2 Donya Billings Work Phone: [facility] [address] DO Work Phone: 07-28-2022 13:20-0500 Body surface area Derived from formula 2.29 m2 Donya Billings Work Phone: [facility] [address] [place] Work Phone: 07-28-2022 13:20-0500 Body weight 122.02 kg Donya Billings Work Phone: [facility] [address] DO Work Phone: 07-28-2022 13:20-0500 Diastolic blood pressure 68 mm[Hg] Donya Billings Work Phone: [facility] [place] Work Phone: 07-28-2022 13:20-0500 Heart rate 78 /min Donya Billings Work Phone: [facility] [address] DO Work Phone: 07-28-2022 13:20-0500 Systolic blood pressure 142 mm[Hg] Donya Billings Work Phone: [facility] [address] DO Work Phone: 06-21-2022 13:10-0500 Diastolic blood pressure 79 mm[Hg] DO Donya Billings Work Phone: [facility] 06-21-2022 13:10-0500 Heart rate 75 /min DO Donya Billings Work Phone: [facility] 06-21-2022 13:10-0500 Respiratory rate 18 /min DO Donya Billings Work Phone: [facility] 06-21-2022 13:10-0500 SaO2% (BldA) [Mass fraction] 98 % DO Donya Billings Work Phone: [facility] 06-21-2022 13:10-0500 Systolic blood pressure 164 mm[Hg] DO Donya Billings Work Phone: [facility] 06-21-2022 10:26-0500 Body temperature 98.7 [degF] DO Donya Billings Work Phone: [facility] 05-12-2022 16:00-0500 Body height 170.18 cm Oliver Mario Other [facility] [employer] Other 05-12-2022 16:00-0500 Body mass index (BMI) [Ratio] 41.81 kg/m2 Oliver Mario Other [employer] Other 05-12-2022 16:00-0500 Body weight 121.11 kg Oliver Mario Other [employer] Other 05-12-2022 16:00-0500 Diastolic blood pressure 89 mm[Hg] Oliver Mario Other [employer] Other 05-12-2022 16:00-0500 Systolic blood pressure 139 mm[Hg] Oliver Mario Other [employer] Other 04-28-2022 16:00-0500 Body height 170.18 cm Oscar Reed Other [employer] Other 04-28-2022 16:00-0500 Body mass index (BMI) [Ratio] 39.93 kg/m2 Oscar Reed Other [employer] Other 04-28-2022 16:00-0500 Body temperature 97.9 [degF] Oscar Reed Other [employer] Other 04-28-2022 16:00-0500 Body weight 115.67 kg Oscar Reed Other [employer] Other 04-28-2022 16:00-0500 Diastolic blood pressure 88 mm[Hg] Oscar Reed Other [employer] Other 04-28-2022 16:00-0500 Respiratory rate 18 /min Oscar Reed Other [employer] Other 04-28-2022 16:00-0500 SaO2% (BldA) [Mass fraction] 97 % Oscar Reed Other [employer] Other 04-28-2022 16:00-0500 Systolic blood pressure 139 mm[Hg] Oscar Reed Other [employer] Other Encounters Encounter Date Encounter Type Care Provider Facility Start: 12-13-2024 End: 12-13-2024 Office outpatient visit 25 minutes Melissa Coon MD Work Phone: [facility] Comment on above: Bilateral lower extr emity edema (Primary Dx); Pulmonary hypertension (HCC); Dyspnea, unspecified type; Essential hypertension ; Medicare annual wellness visit, subsequent; ACP (advance care planning); Obstructive sleep apnea syndrome; Pain of upper abdomen Start: 12-13-2024 End: 12-13-2024 Patient encounter procedure Melissa Coon MD Work Phone: [facility] Start: 12-13-2024 End: 12-13-2024 ambulatory MELISSA COON Not Available Start: 12-07-2024 End: 12-08-2024 External Result Encounter Omid Quan NP Work Phone: [facility] External Department Unsolicited Start: 12-07-2024 End: 12-08-2024 External Result Encounter Omid Quan DRY DIP WORKER Work Phone: [facility] External Department Unsolicited Start: 12-07-2024 End: 12-07-2024 Patient encounter procedure OMID QUAN RN MSN -[facility] [place] Work Phone: Start: 12-07-2024 End: 12-07-2024 ambulatory Melissa Coon MD Work Phone: [facility] Work Phone: Start: 12-06-2024 End: 12-06-2024 Office outpatient visit 25 minutes Omid Quan DRY DIP WORKER Work Phone: [facility] Comment on above: Bilateral lower extr emity edema (Primary Dx); Pulmonary hypertension (HCC); Dyspnea, unspecified type; Snoring; Anasarca; Essential hypertension ; History of anemia; Hypoalbuminemia; Hypoproteinemia (HCC) Start: 12-06-2024 End: 12-06-2024 ambulatory MELISSA COON Not Available Start: 11-29-2024 End: 11-29-2024 ambulatory MD Santos Johnston Facility:[facility] Start: 11-29-2024 End: 11-29-2024 ambulatory Melissa Coon MD Work Phone: [place] Work Phone: Start: 11-29-2024 End: 11-29-2024 Patient encounter procedure Robbie Dale MD -[facility] Work Phone: Start: 11-27-2024 End: 11-27-2024 Patient encounter procedure Kenyetta Dove MD -[facility] [place] Work Phone: Start: 11-27-2024 End: 11-27-2024 ambulatory Melissa Coon MD Work Phone: [facility] Work Phone: Start: 11-26-2024 End: 11-26-2024 ambulatory Donya OZUNA Facility:[facility] Start: 11-21-2024 End: 11-21-2024 Patient encounter procedure Dalia Dennis DRY DIP WORKER -[facility] [place] Work Phone: Start: 11-21-2024 End: 11-21-2024 ambulatory Melissa Coon MD Work Phone: [facility] Work Phone: Start: 11-21-2024 End: 11-21-2024 ambulatory DALIA ACEVEDOBLAKEMARY Not Available Start: 11-21-2024 End: 11-21-2024 Office outpatient visit 25 minutes Dalia Dennis DRY DIP WORKER Work Phone: [facility] Comment on above: Bilateral lower extr emity edema (Primary Dx); Essential hypertension ; Pulmonary hypertension (HCC); Cellulitis of right lower extremity; Snoring Start: 11-09-2024 End: 11-09-2024 [facility] Work Phone: Start: 11-09-2024 End: 11-09-2024 ambulatory [facility] Facility:[facility] Start: 10-25-2024 End: 10-25-2024 Discharged Recurring Melissa Coon MD Work Phone: [facility]-Infusion Therapy - O/P Work Phone: Start: 10-25-2024 End: 10-25-2024 ambulatory Melissa Coon MD Work Phone: [facility] Work Phone: Start: 10-16-2024 End: 10-16-2024 Orders Only Amanda Montiel MD Work Phone: [facility] Comment on above: Acute vaginitis (Dee Dee abhilash Dx) Start: 10-09-2024 End: 10-09-2024 Patient encounter procedure Melissa Coon MD Work Phone: [facility] [address] [place] Work Phone: Start: 10-09-2024 End: 10-09-2024 Office outpatient visit 25 minutes [facility] PA Work Phone: [facility] Comment on above: Lower extremity milo a (Primary Dx); SOB (shortness of breath) on exertion; Bilateral leg edema; Rosacea Start: 10-09-2024 End: 10-09-2024 ambulatory Melissa Coon MD Work Phone: [facility] Work Phone: Start: 09-03-2024 End: 09-03-2024 ambulatory Melissa Coon MD Work Phone: [facility] Work Phone: Start: 09-03-2024 End: 09-03-2024 Discharged Recurring Chaz Carrillo DO -Physical Therapy [address] [place] Start: 09-03-2024 Registered Recurring Melissa dunne MD Work Phone: [facility]-Physical Therapy [address] [place] Start: 08-29-2024 End: 08-29-2024 Patient encounter procedure Melissa Coon MD Work Phone: [facility] [address] [place] Work Phone: Start: 08-29-2024 End: 08-29-2024 ambulatory Melissa Coon MD Work Phone: [facility] Work Phone: Start: 08-14-2024 End: 08-14-2024 ambulatory KENYETTA DOVE Not Available Start: 08-09-2024 ambulatory Willian Jensen MD Facility:[facility] Start: 08-06-2024 Registered Recurring Melissa dunne MD Work Phone: [facility]-Physical Therapy [address] [place] Start: 08-03-2024 End: 08-03-2024 Patient encounter procedure Melissa Coon MD Work Phone: [facility] [address] [place] Work Phone: Start: 08-03-2024 End: 08-03-2024 ambulatory Melissa Coon MD Work Phone: [facility] Work Phone: Start: 08-01-2024 End: 08-01-2024 ambulatory MELISSA COON Not Available Start: 07-23-2024 End: 07-23-2024 ambulatory Willian Jensen MD Facility:[facility] Start: 07-19-2024 End: 07-19-2024 ambulatory Melissa Coon MD Work Phone: [facility] Work Phone: Start: 07-19-2024 End: 07-19-2024 Patient encounter procedure Melissa Coon MD Work Phone: [facility] Work Phone: Start: 07-14-2024 Non-patient / Non-visit Melissa Coon MD Work Phone: [facility] Work Phone: Start: 06-18-2024 End: 06-18-2024 Patient encounter procedure Melissa Coon MD Work Phone: [facility]-MRI [address] Work Phone: Start: 06-18-2024 End: 06-18-2024 ambulatory eMlissa Coon MD Work Phone: [facility] Work Phone: Start: 06-11-2024 End: 06-11-2024 ambulatory Willian Jensen MD Facility:[facility] Start: 05-22-2024 End: 05-22-2024 ambulatory XXXX NONE Facility:[facility] Start: 05-14-2024 End: 05-14-2024 Patient encounter procedure Melissa Coon MD Work Phone: [facility] [place] Work Phone: Start: 05-07-2024 End: 05-07-2024 Telephone encounter Kenyetta Dove MD Work Phone: [facility] Comment on above: Med Refill Start: 03-26-2024 End: 03-26-2024 ambulatory Willian Jensen MD Facility: [facility] Start: 03-07-2024 End: 03-07-2024 Patient encounter procedure [facility] Nurse Business Analytics Analyst/[facility] Comment on above: Bursitis of other bu rsa of right hip Start: 03-07-2024 End: 03-07-2024 Orders Only Betty Lawrence DRY DIP WORKER Work Phone: [facility] Comment on above: Bursitis of other bu rsa of right hip (Primary Dx) Start: 02-28-2024 End: 02-28-2024 Bamboo flowsheet Kenyetta Dove MD Work Phone: [facility] Start: 02-28-2024 End: 02-28-2024 Bamboo flowsheet Kenyetta Dove MD Work Phone: [facility] Start: 02-28-2024 End: 02-28-2024 Office outpatient visit 25 minutes Kenyetta Dove MD Work Phone: [facility] Comment on above: Postoperative hypoth yroidism (CMS/HCC) (Primary Dx); Encounter for dietary consultation; Vitamin D deficiency; Class 3 severe obesity without serious comorbidity with body mass index (BMI) of 40.0 to 44.9 in adult, unspecified obesity type (CMS/HCC) Start: 02-28-2024 End: 02-28-2024 ambulatory KENYETTA DOVE Not Available Start: 02-21-2024 End: 02-21-2024 Patient encounter procedure DO Melissa Singh II Work Phone: [facility] [address] [place] Work Phone: Start: 02-21-2024 End: 02-21-2024 ambulatory DO Melissa Singh II Work Phone: [facility] Work Phone: Start: 02-13-2024 End: 02-13-2024 ambulatory Willian Jensen MD Facility: [place] Start: 02-01-2024 End: 02-01-2024 External Result Encounter Dalia Dennis DRY DIP WORKER Work Phone: [facility] External Department Unsolicited Start: 02-01-2024 End: 02-01-2024 External Result Encounter Dalia Frances Maodevora DRY DIP WORKER Work Phone: [facility] External Department Unsolicited Start: 02-01-2024 End: 02-01-2024 Patient encounter procedure DO Melissa Samantah II Work Phone: [facility] [address] [place] Work Phone: Start: 02-01-2024 End: 02-01-2024 ambulatory DO Melissa Singh II Work Phone: [facility] Work Phone: Start: 01-24-2024 End: 01-24-2024 Office outpatient visit 25 minutes Melissa Coon MD Work Phone: [facility] Comment on above: Essential hypertensi on (CMS/HCC) (Primary Dx); Moderate major depression (CMS/HCC); SANDRA (generalized anxiety disorder) (CMS/HCC); Primary osteoarthritis involving multiple joints; Fibromyalgia; Acquired hypothyroidism (CMS/HCC); Irritable bowel syndrome with constipation; Mixed stress and urge urinary incontinence; Urinary retention; Vitamin D deficiency; History of anemia; Chronic bilateral thoracic back pain; Prediabetes; Class 3 severe obesity due to excess calories with serious comorbidity and body mass index (BMI) of 40.0 to 44.9 in adult (CMS/HCC); BMI 40.0-44.9, adult (CMS/HCC) Start: 01-24-2024 End: 01-24-2024 ambulatory MELISSA COON Not Available Start: 01-23-2024 End: 01-23-2024 ambulatory Willian Jensen MD Facility:[facility] Start: 01-20-2024 End: 01-20-2024 Patient encounter procedure DO Melissa Stephanierubin II Work Phone: [facility] Work Phone: Start: 01-20-2024 End: 01-20-2024 ambulatory DO Melissa J Anastasiamley II Work Phone: [facility] Work Phone: Start: 01-10-2024 End: 01-10-2024 ambulatory DO Melissa Hugo Browney Facility: [facility] Start: 01-09-2024 ambulatory Zeinab [place] Facility :[facility] Start: 01-09-2024 End: 01-09-2024 ambulatory Willian Jensen MD Facility:[facility] Start: 01-02-2024 End: 01-02-2024 ambulatory Willian Jensen MD Facility:[facility] Start: 12-05-2023 End: 12-05-2023 ambulatory DO Melissa Browney II Work Phone: [place] Work Phone: Start: 12-05-2023 End: 12-05-2023 Patient encounter procedure DO Melissa Browney II Work Phone: [facility] [place] Work Phone: Start: 12-05-2023 End: 12-05-2023 ambulatory Willian Jensen MD Facility:[facility] Start: 10-10-2023 End: 10-10-2023 ambulatory Willian Jensen MD Facility: [facility] Start: 10-03-2023 End: 10-03-2023 ambulatory DO Melissa Browney II Work Phone: [place] Work Phone: Start: 10-03-2023 End: 10-03-2023 Patient encounter procedure DO Melissa Stephanieey II Work Phone: [facility] Work Phone: Start: 09-20-2023 End: 09-20-2023 Emergency department patient visit DO Melissa Stephanieey II Work Phone: [facility] Work Phone: Start: 08-16-2023 End: 08-16-2023 ambulatory DO Melissa Singh II Work Phone: [facility] Work Phone: Start: 08-16-2023 End: 08-16-2023 Patient encounter procedure DO Melissa Oconnormley II Work Phone: [facility] [place] Work Phone: Start: 07-28-2023 End: 07-28-2023 Patient encounter procedure DO Melissa Oconnormley II Work Phone: [facility] [place] Work Phone: Start: 07-22-2023 End: 07-22-2023 Emergency department patient visit DO Melissa Singh II Work Phone: [facility] Work Phone: Start: 07-08-2023 End: 07-08-2023 ambulatory Roula James Other [employer] Other Start: 07-08-2023 Office outpatient vi sit 15 minutes Roula James [facility] [address] Start: 07-08-2023 Telephone encounter Stephie Brambila MD Work Phone: Rheumatology Start: 06-14-2023 End: 06-14-2023 ambulatory Beny Hoskins Other [employer] Other Start: 06-14-2023 Telephone encounter Beny Marques ck [facility] Start: 05-24-2023 End: 05-24-2023 ambulatory [facility] Facility:[facility] Start: 05-19-2023 End: 05-19-2023 ambulatory [facility] Facility:[facility] Start: 05-17-2023 End: 05-18-2023 ambulatory [facility] Facility:[facility] Start: 03-29-2023 End: 03-29-2023 Admission to same day surgery center PHYSICIAN NO [facility] Work Phone: Start: 03-29-2023 End: 03-29-2023 ambulatory PHYSICIAN NO [facility] Work Phone: Start: 03-27-2023 End: 03-27-2023 ambulatory Oscar Reed Other [facility] [employer] Other Start: 03-27-2023 Office outpatient vi sit 15 minutes Oscar Reed [facility] Start: 03-17-2023 End: 03-17-2023 ambulatory PHYSICIAN NO [facility] Work Phone: Start: 03-17-2023 End: 03-17-2023 Patient encounter procedure PHYSICIAN NO [facility] [place] Work Phone: Start: 02-17-2023 End: 02-17-2023 Patient encounter procedure PHYSICIAN NO [facility] [place] Work Phone: Start: 02-17-2023 End: 02-17-2023 ambulatory PHYSICIAN NO [facility] Work Phone: Start: 02-17-2023 Office outpatient vi sit 25 minutes Beny [facility] Start: 01-24-2023 Chart Update Donya madera Work Phone: [facility] 600 DO Work Phone: Start: 01-24-2023 End: 01-24-2023 Emergency department patient visit DO Donya Billings Work Phone: [facility] Work Phone: Start: 01-21-2023 End: 01-21-2023 ambulatory DO Donya Billings Work Phone: [facility] Work Phone: Start: 01-21-2023 End: 01-21-2023 Patient encounter procedure DO Donya Billings Work Phone: [facility]-Lab [address] Work Phone: Start: 12-30-2022 End: 12-30-2022 Emergency department patient visit DO Donya Billings Work Phone: [facility] Work Phone: Start: 12-29-2022 End: 12-29-2022 ambulatory DO Donya Billings Work Phone: [facility] Work Phone: Start: 12-29-2022 End: 12-29-2022 Patient encounter procedure DO Donya Billings Work Phone: [facility] Work Phone: Start: 12-20-2022 End: 12-20-2022 Emergency department patient visit DO Donya Billings Work Phone: [facility] Work Phone: Start: 12-08-[address] Phillip Benjamin Facility:[id number] Start: 12-08-2022 FUV, Provider: Phillip Benjamin, Status: Pen, Time: 8:40 AM Donya Billings Work Phone: [facility]-[place] [address] DO Work Phone: Start: 12-08-2022 Office outpatient vi sit 25 minutes Donya Billings Work Phone: [facility] 250 DO Work Phone: Start: 12-06-2022 Chart Update Donya madera Work Phone: [facility] [address] DO Work Phone: Start: 11-25-[address] Donya Washington Facility:[id number] Start: 11-05-2022 End: 11-06-2022 Emergency department patient visit DO Donya Billings Work Phone: [facility] Work Phone: Start: 10-31-2022 Chart Update Donya madera Work Phone: -[facility] [address] [place] Work Phone: Start: 10-28-[address] Donya Harvey [place] Facility:[id number] Start: 10-13-2022 Office outpatient vi sit 25 minutes Donya Billings Work Phone: [facility] Work Phone: Start: 10-13-[address] Donya Harvey [place] Facility:[id number] Start: 10-07-2022 End: 10-08-[address] DONYA BILLINGS Facility:[facility]1 Start: 10-01-2022 End: 10-02-2022 ambulatory UNKNOWN PROVIDER Facility:[facility] Start: 10-01-2022 End: 10-01-2022 Subsequent hospital visit by physician Shannan [facility] Comment on above: Thoracic spine pain Start: 09-30-2022 Orders Only Javad velez MD Work Phone: [facility] Start: 09-17-2022 End: 09-17-2022 Orders Only Javad Leach MD Work Phone: [facility] Start: 09-17-2022 End: 09-17-2022 Patient encounter procedure DO Donya Billings Work Phone: [facility]-CT [address] Work Phone: Start: 09-02-2022 End: 09-06-2022 ambulatory UNKNOWN PROVIDER Facility:[facility] Start: 09-02-2022 End: 09-06-2022 Office outpatient new 45 minutes Javad Leach MD Work Phone: [facility] Comment on above: Thoracic spine pain (Primary Dx) Start: 09-01-2022 End: 09-01-2022 ambulatory Oliver Mario Other [employer] Other Start: 09-01-2022 Patient encounter procedure Oliver [facility]enter[facility] Start: 08-24-2022 Orders Only Javad velez MD Work Phone: [facility] Neurosurgery Start: 08-10-2022 End: 08-10-2022 ambulatory DO Donya Billings Work Phone: [facility] Work Phone: Start: 08-10-2022 End: 08-10-2022 Patient encounter procedure DO Donya Billings Work Phone: [facility] [place] Work Phone: Start: 07-28-2022 FUV, Provider: Phillip Benjamin, Status: Pen, Time: 1:10 PM Donya Billings Work Phone: [facility] 250 DO Work Phone: Start: 07-28-2022 Office outpatient vi sit 25 minutes Donya Billings Work Phone: [facility] 250 DO Work Phone: Start: 07-28-[address] Phillip Benjamin Facility: Start: 07-26-2022 Chart Update Donya madera Work Phone: [facility] 250 DO Work Phone: Start: 07-16-[address] Donya Parekh [place] Facility:[id number] Start: 07-15-2022 End: 07-16-[address] ZHANE MANTILLA . Facility:[facility]1 Start: 07-13-2022 End: 07-13-2022 ambulatory Oliver Mario Other [facility] [employer] Other Start: 07-13-2022 Telephone encounter Oliver CABEZAS [facility]astroenter[facility] Start: 06-21-2022 End: 06-21-2022 Emergency department patient visit DO Donya Billings Work Phone: [facility]Emergency [facility] Work Phone: Start: 06-15-2022 End: 06-15-2022 ambulatory DO Donya Billings Work Phone: [facility] Work Phone: Start: 06-15-2022 End: 06-15-2022 Patient encounter procedure DO Donya Billings Work Phone: [facility]Electrodiagnostics Work Phone: Start: 06-04-[address] Phillip Benjamin Facility: Start: 05-12-2022 End: 05-12-2022 ambulatory Oliver Mario Other [employer] Other Start: 05-12-2022 Patient encounter procedure Oliver Mario [facility] Start: 05-04-2022 End: 05-04-2022 ambulatory DO Donya Billings Work Phone: [facility] Work Phone: Start: 05-04-2022 End: 05-04-2022 Patient encounter procedure DO Donya Billings Work Phone: [facility]-MRI [address] Start: 04-28-2022 End: 04-28-2022 ambulatory Oscar Reed Other [employer] Other Start: 04-28-2022 Office outpatient vi sit 15 minutes Oscar Reed [facility] Start: 04-15-2022 End: 04-16-[address] ZHANE MANTILLA . Facility:[facility]1 Start: 04-08-[address] ZHANE MANTILLA . Faci lity:[facility]1 Start: 01-06-2022 End: 01-07-[address] ZHANE MANTILLA . Facility:[facility] Start: 12-08-2021 End: 12-08-[address] ZHANE MANTILLA . Facility:[facility] Start: 11-12-2021 End: 11-13-[address] ZHANE MANTILLA . Facility:[facility] Start: 10-13-2021 End: 10-13-[address] ZHANE MANTILLA . Facility: Start: 04-04-1998 End: 04-04-1998 Patient encounter procedure Conversion Brownthao Benson [facility] Start: 04-04-1998 Results Only Conversion Edwige herzog Marcelino [facility] Procedures Date Procedure Procedure Detail Performing Clinician Start: 12-07-2024 Plain chest X-ray Melissa Coon MD Work Phone: Start: 12-07-2024 C-reactive protein high sensitivity Omid Kyler Quan [employer] Work Phone: Start: 12-07-2024 Comprehensive metabolic panel Omid Kyler Quan [employer] Work Phone: Start: 12-07-2024 Urine albumin quantitative Omid chiu [employer] Work Phone: Start: 11-29-2024 X-ray of lumbar spine, two or three views Melissa Coon MD Work Phone: Start: 10-25-2024 Adrenocorticotropic hormone measurement Melissa Coon MD Work Phone: Comment on above: ACTH reference interval for samples helene ected between 7 and10 AM.Performed at: [address] Director: Ramirez Ca PhD, Phone: [phone] Start: 06-18-2024 XR pre/post mri xray Melissa Coon MD Work Phone: Start: 06-18-2024 MR lumbar spine wo con Melissa Coon MD Work Phone: Start: 05-14-2024 Quick Strep (POC) Melissa Coon MD Work Phone: Start: 02-01-2024 Complete blood count with white cell differential, automated Dalia R Risaliti [employer] Work Phone: Start: 02-01-2024 Urine albumin quantitative Dalia R Risali ti [employer] Work Phone: Start: 02-01-2024 Urnls dip stick/tablet rgnt non-auto w/o micrscp Dalia R Risaliti [employer] Work Phone: Start: 01-20-2024 End: 01-20-2024 Screening mammography of bilateral breasts DO Melissa Singh II Work Phone: Start: 12-05-2023 COVID Antigen (POC) DO Melissa Singh II Work Phone: Start: 09-20-2023 Plain X-ray of right shoulder DO Melissa Singh II Work Phone: Start: 08-16-2023 MR thoracic spine wo con DO Melissa conklin II Work Phone: Start: 07-22-2023 Blood culture [...] Start: 10-01-2022 CT NEURO IMAGE IMPORT Javad Laech MD Work Phone: Start: 09-17-2022 Computed tomography [...] xray DO Donya Billings Work Phone: Start: 08-21-2012 Colonoscopy Melissa Coon MD Work Phone: Start: 04-04-1998 CONVERTED CYTOLOGY GYROSCOPIC INSTRUMENT TESTER Conversion Yamel Ap Start: 04-04-1998 Microscopic observation [Identifier] in Cervix by Cyto stain Tanner SALAS Work Phone: section Donya mckenzie Work Phone: H/O: section Previous c esarean section DO Melissa Cromley II Work Phone: H/O: hysterectomy H/O: hysterectomy DO Ro aurora Cromley II Work Phone: History Of Prior Surgery Leslie Billings Work Phone: History of thyroidectomy S/P thyroidectom y DO Melissa Cromley II Work Phone: Hysterectomy Donya Billings Work Phone: Procedure on back Donya Billings Work Phone: Thyroidectomy Donya madera Work Phone: Total colonoscopy Donya Billings Work Phone: Plan of Treatment Date Care Activity Detail Author Start: 08-11-2027 Cholesterol [Mass/volume] in Serum or Plasma Cholesterol [facility] Start: 2027 Shingles (RZV) Vaccine (1 of 2) Shingles (RZV) Vaccine (1 of 2) [facility] Start: 05-19-2026 Diabetes Screening Diabetes Screening [facility] Start: 02-26-2025 End: 02-26-2025 Patient encounter procedure 02/26/2025 10:30 AM EDT Office Visit [facility] [address] [place] [address] Kenyetta Dove MD [address] [place] [address] [facility] Start: 02-18-2025 [facility] Start: 02-12-2025 End: 02-12-2025 Patient encounter procedure 02/12/2025 11:10 AM EDT Office Visit [facility] [address] [place] [phone] Kenyetta Dove MD [address] [place] [address] [facility] Start: 02-06-2025 End: 02-06-2025 Patient encounter procedure [facility] Start: 01-28-2025 Influenza vaccination [facility] Start: 01-19-2025 Screening for malignant neoplasm of breast Mammogram [facility] Start: 12-20-2024 End: 12-20-2024 Patient encounter procedure 12/20/2024 3:00 PM EDT Office Visit [facility] [address] [place] [id number] [facility] Start: 12-19-2024 End: 12-19-2024 Professional / ancillary services management 12/19/2024 11:45 AM EDT Ancillary Procedure [facility] CT [address] [place] [phone] [facility] [address] Start: 12-07-2024 End: 01-05-2025 C reactive protein [Mass/volume] in Serum or Plasma by High sensitivity method High sensitivity CRP Lab Routine Bilateral lower extremity edema Pulmonary hypertension (HCC) Dyspnea, unspecified type Snoring Anasarca Essential hypertension History of anemia Hypoalbuminemia Hypoproteinemia (HCC) Expected: 12/07/2024 (Approximate), Expires: 01/05/2025 [facility] Comment on above: Expected: 12/07/2024 (Approximate), Expi res: 01/05/2025 Start: 12-07-2024 End: 01-05-2025 Comprehensive metabolic 2000 panel - Serum or Plasma Comprehensive metabolic panel Lab Routine Bilateral lower extremity edema Pulmonary hypertension (HCC) Dyspnea, unspecified type Snoring Anasarca Essential hypertension History of anemia Hypoalbuminemia Hypoproteinemia (HCC) Expected: 12/07/2024 (Approximate), Expires: 01/05/2025 [facility] Comment on above: Expected: 12/07/2024 (Approximate), Expi res: 01/05/2025 Start: 12-07-2024 End: 01-05-2025 Erythrocyte sedimentation rate Sedimentation rate, automated Lab Routine Bilateral lower extremity edema Pulmonary hypertension (HCC) Dyspnea, unspecified type Snoring Anasarca Essential hypertension History of anemia Hypoalbuminemia Hypoproteinemia (HCC) Expected: 12/07/2024 (Approximate), Expires: 01/05/2025 [facility] Work Phone: Comment on above: Expected: 12/07/2024 (Approximate), Expi res: 01/05/2025 Start: 12-07-2024 End: 01-05-2025 FREE K+L LT CHAINS,QN,S FREE K+L LT CHAINS,QN,S Lab Routine Bilateral lower extremity edema Pulmonary hypertension (HCC) Dyspnea, unspecified type Snoring Anasarca Essential hypertension History of anemia Hypoalbuminemia Hypoproteinemia (HCC) Expected: 12/07/2024 (Approximate), Expires: 01/05/2025 [facility] Comment on above: Expected: 12/07/2024 (Approximate), Expi res: 01/05/2025 Start: 12-07-2024 End: 01-05-2025 Hemoglobin a1c with eag Hemoglobin a1c with eag Lab Routine Bilateral lower extremity edema Pulmonary hypertension (HCC) Dyspnea, unspecified type Snoring Anasarca Essential hypertension History of anemia Hypoalbuminemia Hypoproteinemia (HCC) Expected: 12/07/2024 (Approximate), Expires: 01/05/2025 [facility] Comment on above: Expected: 12/07/2024 (Approximate), Expi res: 01/05/2025 Start: 12-07-2024 End: 01-05-2025 Magnesium [Mass/volume] in Serum or Plasma Magnesium Lab Routine Bilateral lower extremity edema Pulmonary hypertension (HCC) Dyspnea, unspecified type Snoring Anasarca Essential hypertension History of anemia Hypoalbuminemia Hypoproteinemia (HCC) Expected: 12/07/2024 (Approximate), Expires: 01/05/2025 [facility] Comment on above: Expected: 12/07/2024 (Approximate), Expi res: 01/05/2025 Start: 12-07-2024 End: 01-05-2025 Microalbumin/Creatinine panel in random Urine Microalbumin / creatinine urine ratio Lab Routine Bilateral lower extremity edema Pulmonary hypertension (HCC) Dyspnea, unspecified type Snoring Anasarca Essential hypertension History of anemia Hypoalbuminemia Hypoproteinemia (HCC) Expected: 12/07/2024 (Approximate), Expires: 01/05/2025 [facility] Comment on above: Expected: 12/07/2024 (Approximate), Expi res: 01/05/2025 Start: 12-07-2024 End: 01-05-2025 Nuclear Ab [Titer] in Serum by Immunofluorescence WILL Lab Routine Bilateral lower extremity edema Pulmonary hypertension (HCC) Dyspnea, unspecified type Snoring Anasarca Essential hypertension History of anemia Hypoalbuminemia Hypoproteinemia (HCC) Expected: 12/07/2024 (Approximate), Expires: 01/05/2025 [facility] Comment on above: Expected: 12/07/2024 (Approximate), Expi res: 01/05/2025 Start: 12-07-2024 End: 01-05-2025 Protein electrophoresis, serum Protein electrophoresis, serum Lab Routine Bilateral lower extremity edema Pulmonary hypertension (HCC) Dyspnea, unspecified type Snoring Anasarca Essential hypertension History of anemia Hypoalbuminemia Hypoproteinemia (HCC) Expected: 12/07/2024 (Approximate), Expires: 01/05/2025 [facility] Comment on above: Expected: 12/07/2024 (Approximate), Expi res: 01/05/2025 Start: 12-07-2024 End: 01-05-2025 Rheumatoid factor [Units/volume] in Serum or Plasma [facility] Comment on above: Expected: 12/07/2024 (Approximate), Expi res: 01/05/2025 Start: 12-07-2024 End: 01-05-2025 Urinalysis complete panel - Urine [facility] Comment on above: Expected: 12/07/2024 (Approximate), Expi res: 01/05/2025 Start: 12-07-2024 [facility] Start: 12-03-2024 End: 01-21-2025 Basic metabolic 1998 panel - Serum or Plasma Basic metabolic panel Lab Routine Bilateral lower extremity edema Expected: 12/03/2024, Expires: 01/21/2025 [facility] Comment on above: Expected: 12/03/2024, Expires: Start: 11-22-2024 End: 12-21-2024 Basic metabolic 1998 panel - Serum or Plasma Basic metabolic panel Lab Routine Bilateral lower extremity edema Expected: 11/22/2024 (Approximate), Expires: 12/21/2024 [facility] Work Phone: Comment on above: Expected: 11/22/2024 (Approximate), Expi res: 12/21/2024 Start: 11-22-2024 End: 12-21-2024 Natriuretic peptide B [Mass/volume] in Blood B-type natriuretic peptide Lab Routine Bilateral lower extremity edema Expected: 11/22/2024 (Approximate), Expires: 12/21/2024 [facility] Comment on above: Expected: 11/22/2024 (Approximate), Expi res: 12/21/2024 Start: 10-25-2024 Adrenocorticotropic hormone measurement [facility] Start: 10-25-2024 [facility] Start: 10-10-2024 End: 01-07-2025 Comprehensive metabolic 2000 panel - Serum or Plasma Comprehensive metabolic panel Lab Routine SOB (shortness of breath) on exertion Bilateral leg edema Expected: 10/10/2024 (Approximate), Expires: 01/07/2025 [facility] Comment on above: Expected: 10/10/2024 (Approximate), Expi res: 01/07/2025 Start: 10-10-2024 End: 01-07-2025 Microalbumin/Creatinine panel in random Urine Microalbumin / creatinine urine ratio Lab Routine SOB (shortness of breath) on exertion Bilateral leg edema Expected: 10/10/2024 (Approximate), Expires: 01/07/2025 [facility] Comment on above: Expected: 10/10/2024 (Approximate), Expi res: 01/07/2025 Start: 10-10-2024 End: 01-07-2025 Natriuretic peptide B [Mass/volume] in Blood B-type natriuretic peptide Lab Routine SOB (shortness of breath) on exertion Bilateral leg edema Expected: 10/10/2024 (Approximate), Expires: 01/07/2025 [facility] Comment on above: Expected: 10/10/2024 (Approximate), Expi res: 01/07/2025 Start: 08-01-2024 End: 08-01-2024 Patient encounter procedure 08/01/2024 1:00 PM EST Office Visit [facility] [address] [place] [phone] Melissa Coon MD [address] [place] [address] [facility] Start: 06-18-2024 XR pre/post mri xray XR pre/post mri xray [facility] Start: 06-18-2024 [facility] Start: 06-18-2024 MR lumbar spine wo con MR lumbar spine wo con [facility] Start: 06-18-2024 MR Lumbar spine WO contrast [facility] Start: 02-28-2024 End: 02-27-2025 Thyrotropin [Units/volume] in Serum or Plasma TSH Lab Routine Postoperative hypothyroidism (CMS/HCC) Expected: 02/28/2024 (Approximate), Expires: 02/27/2025 [facility] Comment on above: Expected: 02/28/2024 (Approximate), Expi res: 02/27/2025 Start: 02-28-2024 End: 02-27-2025 Thyroxine (T4) free [Mass/volume] in Serum or Plasma T4, free Lab Routine Postoperative hypothyroidism (CMS/HCC) Expected: 02/28/2024 (Approximate), Expires: 02/27/2025 [facility] Comment on above: Expected: 02/28/2024 (Approximate), Expi res: 02/27/2025 Start: 02-28-2024 End: 02-27-2025 Triiodothyronine (T3) Free [Mass/volume] in Serum or Plasma T3, free Lab Routine Postoperative hypothyroidism (CMS/HCC) Expected: 02/28/2024 (Approximate), Expires: 02/27/2025 [facility] Work Phone: Comment on above: Expected: 02/28/2024 (Approximate), Expi res: 02/27/2025 Start: 02-28-2024 End: 02-28-2024 Patient encounter procedure 02/28/2024 9:50 AM EDT Office Visit [facility] [address] [place] [phone] Kenyetta Dove MD [address] [place] [address] Arrived [facility] Comment on above: Arrived Start: 02-20-2024 End: 02-20-2024 Patient encounter procedure 02/20/2024 10:30 AM EDT Office Visit [facility] [address] [place] [phone] Kenyetta Dove MD [address] [place] [address] [facility] Start: 01-29-2024 Influenza vaccination Influenza Vaccine (#1) [facility] Start: 01-24-2024 End: 01-23-2025 CBC W Auto Differential panel - Blood CBC and differential Lab Routine History of anemia Expected: 01/24/2024 (Approximate), Expires: 01/23/2025 [facility] Work Phone: Comment on above: Expected: 01/24/2024 (Approximate), Expi res: 01/23/2025 Start: 01-24-2024 End: 01-23-2025 Comprehensive metabolic 2000 panel - Serum or Plasma Comprehensive metabolic panel Lab Routine Essential hypertension (CMS/HCC) Expected: 01/24/2024 (Approximate), Expires: 01/23/2025 [facility] Comment on above: Expected: 01/24/2024 (Approximate), Expi res: 01/23/2025 Start: 01-24-2024 End: 01-23-2025 Ferritin [Mass/volume] in Serum or Plasma Ferritin Lab Routine History of anemia Expected: 01/24/2024 (Approximate), Expires: 01/23/2025 [facility] Comment on above: Expected: 01/24/2024 (Approximate), Expi res: 01/23/2025 Start: 01-24-2024 End: 01-23-2025 Iron and Iron binding capacity panel - Serum or Plasma Iron and TIBC Lab Routine History of anemia Expected: 01/24/2024 (Approximate), Expires: 01/23/2025 [facility] Comment on above: Expected: 01/24/2024 (Approximate), Expi res: 01/23/2025 Start: 01-24-2024 End: 01-23-2025 Lipid 1996 panel - Serum or Plasma Lipid panel Lab Routine Essential hypertension (CMS/HCC) Expected: 01/24/2024 (Approximate), Expires: 01/23/2025 [facility] Comment on above: Expected: 01/24/2024 (Approximate), Expi res: 01/23/2025 Start: 01-24-2024 End: 01-23-2025 Microalbumin/Creatinine panel in random Urine Microalbumin / creatinine urine ratio Lab Routine Essential hypertension (CMS/HCC) Expected: 01/24/2024 (Approximate), Expires: 01/23/2025 [facility] Comment on above: Expected: 01/24/2024 (Approximate), Expi res: 01/23/2025 Start: 01-24-2024 End: 01-23-2025 Thyrotropin [Units/volume] in Serum or Plasma TSH Lab Routine Acquired hypothyroidism (CMS/HCC) Expected: 01/24/2024 (Approximate), Expires: 01/23/2025 [facility] Comment on above: Expected: 01/24/2024 (Approximate), Expi res: 01/23/2025 Start: 01-24-2024 End: 01-23-2025 Urinalysis complete panel - Urine Urinalysis with microscopic Lab Routine Essential hypertension (CMS/HCC) Expected: 01/24/2024 (Approximate), Expires: 01/23/2025 [facility] Comment on above: Expected: 01/24/2024 (Approximate), Expi res: 01/23/2025 Start: 12-30-2023 Screening for malignant neoplasm of breast [facility] Start: 11-08-2023 Screening for malignant neoplasm of cervix [facility] Start: 07-22-2023 Bacteria identified in Blood by Culture [facility] Start: 04-20-2023 FUV, Provider: Phillip Benjamin, Status: Pen, Time: 3:00 PM FUV, Provider: Phillip Benjamin, Status: Pen, Time: 3:00 PM [facility] [employer] 250 DO Work Phone: Start: 03-29-2023 [facility] Start: 03-29-2023 End: 03-29-2023 [facility] Start: 01-28-2023 Influenza vaccination [facility] Start: 01-24-2023 Duplex scan of lower limb veins US venous duplex LE LT [facility] Start: 01-24-2023 US Lower extremity vein - left [facility] Start: 12-31-2022 Medicare Annual Wellness (AWV) Medicare Annual Wellness (AWV) [facility] Start: 12-30-2022 CT of head without contrast CT head/brain wo con [facility] Start: 12-30-2022 CT Unspecified body region WO contrast [facility] Start: 12-08-2022 FUV, Provider: Phillip Benjamin, Status: Pen, Time: 8:40 AM FUV, Provider: Phillip Benjamin, Status: Pen, Time: 8:40 AM [facility] [place] Work Phone: Start: 12-02-2022 FUV, Provider: Phillip Benjamin, Status: Pen, Time: 3:00 PM FUV, Provider: Phillip Benjamin, Status: Pen, Time: 3:00 PM [facility] 250 DO Work Phone: Start: 11-25-2022 ECHO, Provider: RILEY JENNIFERI ULTRASOUND 01,[id number], Status: Pen, Time: 7:45 AM ECHO, Provider: RILEY HHVI ULTRASOUND 01,[id number], Status: Pen, Time: 7:45 AM [facility] [address] [place] Work Phone: Start: 09-30-2022 End: 10-01-2023 DOWNLOAD POWERSHARE IMAGES TO [employer] DOWNLOAD [employer] for [employer] IMAGES TO [facility] Imaging Routine Thoracic spine pain Expected: 09/30/2022, Expires: 10/01/2023 [facility] [employer] Work Phone: Comment on above: Expected: 09/30/2022, Expires: Start: 09-17-2022 End: 09-18-2023 DOWNLOAD POWERSHARE IMAGES TO [employer] DOWNLOAD POWERSHARE IMAGES TO [facility] Imaging Routine Thoracic spine pain Expected: 09/17/2022, Expires: 09/18/2023 [facility] [employer] Work Phone: Comment on above: Expected: 09/17/2022, Expires: 4 Start: 09-06-2022 End: 09-07-2023 CT Thoracic spine WO contrast CT T-SPINE W/O CONTRAST Imaging Within 1 week Thoracic spine pain Expected: 09/06/2022, Expires: 09/07/2023 [facility] [employer] Work Phone: Comment on above: Expected: 09/06/2022, Expires: 4 Start: 09-02-2022 End: 09-02-2022 Patient encounter procedure 09/02/2022 Office Visit Orthopedics Javad Leach MD [address] [place] [id number] [facility] Start: 08-24-2022 End: 08-25-2023 DOWNLOAD POWERSHARE IMAGES TO [facility] DOWNLOAD POWERSHARE IMAGES TO [facility] Imaging Routine Cervical spondylosis with myelopathy Expected: 08/24/2022, Expires: 08/25/2023 [facility] Work Phone: Comment on above: Expected: 08/24/2022, Expires: Start: 08-21-2022 Screening for malignant neoplasm of colon [facility] Start: 08-10-2022 [facility] Start: 2022 Cholesterol [Mass/volume] in Serum or Plasma Cholesterol [facility] Start: 2022 Lipid panel Lipid Screening [facility] Start: 2022 Screening for malignant neoplasm of colon [facility] Start: 02-27-2022 Influenza vaccination Influenza Vaccine (#1) [facility] Start: 01-29-2020 Influenza vaccination INFLUENZA (#1) [facility] Start: 2017 Mammography MAMMOGRAM [facility] Start: 2017 Screening for malignant neoplasm of breast Mammography [facility] Start: 11-28-2015 Annual wellness visit Annual Wellness Visit (G0438) [facility] Start: 2007 HPV TESTING HPV TESTING [facility] Start: 2007 Screening for malignant neoplasm of cervix HPV Testing [facility] Start: 04-04-2001 Screening for malignant neoplasm of cervix Pap Smear [facility] Start: 1998 PAP TESTING PAP TESTING [facility] Start: 1998 Screening for malignant neoplasm of cervix [facility] Start: 1996 Urine microalbumin profile DTAP,TDAP,TD (1 - Tdap) [facility] Start: 1995 ANNUAL PCP TEAM CHRONIC DISEASE VISIT ANNUAL PCP TEAM CHRONIC DISEASE VISIT [facility] Start: 1995 HEPATITIS C SCREENING HEPATITIS C SCREENING [facility] Start: 1995 Hepatitis C screening [facility] Start: 1995 HIV SCREENING HIV SCREENING [facility] Start: 1995 HIV screening HIV Screening [facility] Start: 1995 Tetanus + diphtheria + acellular pertussis vaccine (product) Tdap Booster [facility] Start: 1992 HIV screening HIV Test [facility] Start: 1988 Urine microalbumin profile DTaP,Tdap,Td Vaccine (4 - Tdap) [facility] Start: 1977 COVID-19 Vaccine (#1) COVID-19 Vaccine (#1) [facility] Start: 1977 Screening for malignant neoplasm of colon [facility] 25-hydroxyvitamin D2 [Mass/volume] in Serum or Plasma [facility] 25-hydroxyvitamin D3 [Mass/volume] in Serum or Plasma [facility] 25-Hydroxyvitamin D3+25-Hydroxyvitamin D2 [Mass/volume] in Serum or Plasma [facility] Albumin [Mass/volume ] in Serum or Plasma [facility] Albumin [Mass/volume ] in Serum or Plasma [facility] Albumin/Globulin ratio [facility] Albumin/Globulin ratio [facility] Borrelia burgdorferi Ab [Interpretation] in Serum [facility] Borrelia burgdorferi IgG Ab [Presence] in Serum or Plasma by Immunoassay [facility] Borrelia burgdorferi IgG+IgM Ab [Presence] in Serum by Immunoassay [facility] Borrelia burgdorferi IgM Ab [Presence] in Serum or Plasma by Immunoassay [facility] Cefuroxime free [Mass/volume] in Serum or Plasma [facility] Comprehensive metabo lic 2000 panel - Serum or Plasma Comprehensive metabolic panel Lab Routine 02/01/2024 10:15 AM EDT [facility] [employer] Work Phone: CT Abdomen and Pelvi s W contrast IV CT abdomen pelvis w IV contrast Imaging Routine Bilateral lower extremity edema Pain of upper abdomen Ordered: 12/13/2024 [facility] Work Phone: Comment on above: Ordered: 12/13/2024 Electrophoresis: [id number] [facility] Electrophoresis: [id number] [facility] Electrophoresis: yzgfz-4-aruvxtod [facility] Electrophoresis: [id number]-[id number] [facility] Electrophoresis: beta-globulin [facility] Electrophoresis: beta-globulin [facility] Electrophoresis: raisa ma globulin [facility] Electrophoresis: raisa ma globulin [facility] Estrogen [Mass/volum e] in Serum or Plasma [facility] Globulin [Mass/volum e] in Serum [facility] Globulin [Mass/volum e] in Serum [facility] Homogenous nuclear A b pattern [Titer] in Serum [facility] Iron and Iron bindin g capacity panel - Serum or Plasma Iron and TIBC Lab Routine 02/01/2024 10:15 AM EDT [facility] [place] light chains.f ree [Mass/volume] in Serum [facility] [place] light chains.free/Lambda light chains.free [Mass Ratio] in Serum [facility] Lambda light chains. free [Mass/volume] in Serum or Plasma [facility] Lipid 1996 panel - S zakia or Plasma Lipid panel Lab Routine 02/01/2024 10:15 AM EDT [facility] Lutropin [Units/volu me] in Serum or Plasma [facility] Nuclear Ab [Titer] in Serum [facility] Patient Education [facility] Work Phone: Patient referral [facility] Work Phone: Progesterone [Mass/v olume] in Serum or Plasma [facility] Protein [Mass/volume ] in Serum or Plasma [facility] Protein [Mass/volume ] in Serum or Plasma [facility] Rheumatoid factor [Units/volume] in Serum or Plasma [facility] US Heart Transthoracic Transthor acic echo (TTE) complete Echocardiography Routine Lower extremity edema SOB (shortness of breath) on exertion Ordered: 10/09/2024 [facility] [employer] Work Phone: Comment on above: Ordered: 10/09/2024 XR Chest 2 Views XR chest 2 view s Imaging Routine Bilateral lower extremity edema Pulmonary hypertension (HCC) Dyspnea, unspecified type Snoring Anasarca Essential hypertension History of anemia Hypoalbuminemia Hypoproteinemia (HCC) Ordered: 12/06/2024 [facility] [employer] Comment on above: Ordered: 12/06/2024 [facility] Immunizations Immunization Date Immunization Notes Care Provider Watson deleon 06-05-2001 hepatitis B vaccine, adult dosage Donya Billings Work Phone: [facility] 250 DO Work Phone: 12-28-2000 hepatitis B vaccine, adult dosage [facility]onya Billings [facility]: [facility] Work Phone: 11-21-2000 measles, mumps and rubella virus vaccine Donya Billings Work Phone: [facility] 250 DO Work Phone: 11-14-2000 hepatitis B vaccine, adult dosage [facility] Billings [facility] Phone: [facility] Work Phone: 01-07-1983 measles, mumps and rubella virus vaccine Donya Billings Work Phone: [facility] Work Phone: 10-11-1979 diphtheria, tetanus toxoids and acellular pertussis vaccine, unspecified formulation Donya Billings Work Phone: [facility] Work Phone: 10-11-1979 poliovirus vaccine, inactivated Donya Billings Work Phone: [facility] 250 DO Work Phone: 08-01-1979 diphtheria, tetanus toxoids and pertussis vaccine Donya Billings Work Phone: [facility] 250 DO Work Phone: 08-01-1979 poliovirus vaccine, inactivated Donya Billings Work Phone: [facility] Work Phone: 04-18-1979 diphtheria, tetanus toxoids and pertussis vaccine Donya Billings Work Phone: [facility] DO Work Phone: 05-13-1978 diphtheria, tetanus toxoids and pertussis vaccine Donya Billings Work Phone: [facility] DO Work Phone: 05-13-1978 poliovirus vaccine, inactivated Donya Billings Work Phone: [facility] Work Phone: 1977 poliovirus vaccine, inactivated Donya S Waa Work Phone: -[facility] 250 DO Work Phone: Payers Date Payer Category Payer Self-pay [id number] 2022 Medicaid [id number] 2013 Medicare [id number] 1977 Unknown [id number] 2.16. 840.1.583795.3.579.2.732 1977 Unknown [id number] 2.16. 840.1.046987.3.579.2.732 1977 Unknown [id number] 2.16.84 0.1.315500.3.579.2.593 1977 Unknown [id number] 2.16.84 0.1.352403.3.579.2.593 1977 Unknown [id number] 2.16.84 0.1.481553.3.579.2.593 1977 Unknown [id number] 2.16.84 0.1.158167.3.579.2.593 1977 Unknown [id number] 2.16.84 0.1.579943.3.579.2.593 1977 Unknown [id number] 2.16.84 0.1.049271.3.579.2.593 1977 Unknown [id number] 2.16.84 0.1.540740.3.579.2.593 1977 Unknown [id number] 2.16.84 0.1.092975.3.579.2.593 1977 Unknown [id number] 2.16.8 40.1.203148.3.579.2.1068 1977 Unknown [id number] 2.16.8 40.1.202551.3.579.2.1068 1977 Unknown [id number] 2.16. 840.1.278534.3.579.2.356 1977 Unknown [id number] 2.16. 840.1.132179.3.579.2.356 1977 Unknown [id number] 2.16. 840.1.475808.3.579.2.356 1977 Unknown [id number] 2.16. 840.1.053851.3.579.2.356 1977 Unknown [id number] 2.16. 840.1.046789.3.579.2.356 1977 Unknown [id number] 2.16. 840.1.566470.3.579.2. 1977 Unknown [id number] 2.16. 840.1.361787.3.579.2.196 1977 Unknown [id number] 2.16. 840.1.528150.3.579.2.196 1977 Unknown [id number] 2.16. 840.1.278101.3.579.2.196 1977 Unknown [id number] 2.16. 840.1.170984.3.579.2. 1977 Unknown [id number] 2.16. 840.1.238852.3.579.2.196 1977 Unknown [id number] 2.16. 840.1.420332.3.579.2. 1977 Unknown [id number] 2.16. 840.1.657873.3.579.2. 1977 Unknown [id number] 2.16. 840.1.884514.3.579.2. 1977 Unknown [id number] 2.16. 840.1.252420.3.579.2. 1977 Unknown [id number] 2.16.8 40.1.180286.3.579.2.727 1977 Unknown [id number] 2.16.8 40.1.114750.3.579.2. 1977 Unknown [id number] 2.16.8 40.1.611283.3.579.2.7 1977 Unknown [id number] 2.16.8 40.1.510128.3.579.2. 1977 Unknown [id number] 2.16.8 40.1.371888.3.579.2. 1977 Unknown [id number] 2.16.8 40.1.367644.3.579.2.1258 1977 Unknown [id number] 2.16.8 40.1.234599.3.579.2.1258 1977 Unknown [id number] 2.16.8 40.1.082548.3.579.2.1258 1977 Unknown [id number] 2.16.84 0.1.122823.3.579.2.1258 1977 Unknown [id number] 2.16.84 0.1.350158.3.579.2.1258 1977 Unknown [id number] 2.16.84 0.1.186509.3.579.2.1258 1977 Unknown [id number] 2.16.84 0.1.767722.3.579.2.1258 1977 Unknown [id number] 2.16.84 0.1.608670.3.579.2.1258 1977 Unknown [id number] 2.16.84 0.1.564979.3.579.2.1259 1959 Medicaid [id number] 2. 16.840.1.967600.19 1959 Medicare [id number] 2.1 6.840.1.042664.19 Unknown Unknown [id number] 2.16.8 40.1.445904.3.579.2.531 Unknown [id number] 2.16.8 40.1.662170.3.579.2.531 Unknown [id number] 2.16.8 40.1.055845.3.579.2.531 Unknown [id number] 2.16.8 40.1.744363.3.579.2.531 Unknown [id number] 2.16.8 40.1.406446.3.579.2.531 Unknown [id number] 2.16.8 40.1.679212.3.579.2.531 Unknown [id number] 2.16.8 40.1.235999.3.579.2.531 Unknown [id number] 2.16.8 40.1.619614.3.579.2.531 Unknown [id number] 2.16.8 40.1.134671.3.579.2.531 Unknown [id number] 2.16.8 40.1.542904.3.579.2.531 Unknown [id number] 2.16.8 40.1.841211.3.579.2.531 Unknown [id number] 2.16.8 40.1.631258.3.579.2.531 Unknown [id number] 2.16.8 40.1.716036.3.579.2.531 Unknown [id number] 2.16.8 40.1.690853.3.579.2.531 Social History Date Type Detail Facility Tobacco smoking status NDIS Unknown if ever smoked [facility] Start: 1975 Sex Assigned At Not on file [facility] Start: 05-17-2023 End: 12-13-2024 Sex Assigned At [employer] Other Start: 11-19-2019 End: 05-14-2024 Tobacco smoking status NDIS Ex-smoker (finding) [facility] Start: 1975 Sex Assigned At Female [facility] Start: 06-21-2022 End: 06-21-2022 Tobacco smoking status NHIS Never smoked tobacco (finding) [facility] Start: 05-17-2023 End: 12-13-2024 Current smoker Current smoker [facility] Del Angel DO Work Phone: Comment on above: gilson; quit 01/28/22; Tobacco smoking status NHIS Tobacco smoking consumption unknown [facility] Start: 12-20-2022 End: 09-20-2023 History of tobacco use [facility] sm[facility] End: 07-30-2011 History of tobacco use Cigarette Smoker [facility] Start: 09-02-2022 End: 01-24-2024 Tobacco use and exposure Smokeless tobacco non-user [facility] Start: 05-17-2023 Alcohol intake 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 (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) [facility] National Score (1-100), lower number is lower risk 65 [facility] Start: 01-18-2014 Alcohol Comment socially [facility] Start: 07-22-2023 End: 07-22-2023 Tobacco smoking status NHIS Current some day smoker [facility] Start: 01-24-2024 Tobacco smoking status NHIS Smokes tobacco daily [facility] Start: 02-20-2024 End: 12-06-2024 Alcoholic beverage intake Lifetime non-drinker (finding) [facility] Start: 01-24-2024 Tobacco Comment Pt smoked 1/2 ppd since age 17 years old. [facility] Start: 06-19-2024 End: 10-25-2024 Sex Female (finding) [facility] NEGATED: Highlighted row [facility] Goals Date Patient Goal Desired Activity /State Functional Status Date Assessment Result Facility 12-13-2024 Patient Health [facility] ionnaire 2 item (PHQ-2) [Reported] [facility] Clinical Notes 11-12-2021 to 12-13-2024 Melissa Coon MD - 12/13/2024 10:45 AM Mary Carmen Quan NP - 12/06/2024 3:30 PM EDT Note Date & Type Note Facility 12-13-2024 History of Presen t illness Narrative Images from the original note were not [...] has discontinued Lasix and diltiazem at the podiatric foot and ankle specialist recommendation. She was prescribed Keflex, but it did not alleviate her symptoms. She was previously on Lasix 40 mg twice daily and potassium 20 mg twice daily, but these medications were discontinued by her podiatric foot and ankle specialist, at [facility], who instead prescribed losartan hydrochlorothiazide. This new medication has not resulted in any noticeable changes in her leg swelling. She has been referred [...] her stomach, is preventing her from falling back asleep. She has been advised to consider Wegovy for potential sleep apnea treatment, but has not officially been diagnosed yet, has not had sleep study. Her weight has been steadily increasing, which she attributes to fluid retention. She has been advised to consider Wegovy for potential sleep apnea treatment, but has not yet discussed this with Dr. Coon. She has an upcoming nerve stimulator surgery for her back pain at [facility]. She has had x-rays of her back and reports severe low [...] takes melatonin at 9:00 PM. She estimates that she gets about 8 [...] today. 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 - Suspected contribution to pulmonary hypertension [...] Nerve stimulator surgery scheduled for 12/17/2024 at [facility]. 5. Pulmonary hypertension -mild, on echo, rule out JOSELINE. 6. Dyspnea -continue work up as above. 7. Hypertension - continue current regimen. 8. Medicare Wellness Seen by Tanner Menendez PA-C in conjunction with PCP. Patient [...] with documentation above. documented in this encounter [facility] 12-06-2024 History of Presen t illness Narrative Lupe Pickard is a 49 y.o. female presents with chief complaint of Edema (Office visit with Dalia on 11/21 for bilateral lower extremity edema and cellulitis rt lower extremity. She was advised by podiatric foot and ankle specialist to stop Lasix and she was prescribed Losartan hydrochlorothiazide 100/12.5 mg every day. Bilateral edema and pain continue. SOB with exertion has worsened within the last couple days. ) HPI: History of Present Illness The patient is a 49-year-old female who presents today for a follow-up. Leg Swelling and Generalized Swelling She reports persistent leg swelling, which has shown minimal improvement since yesterday. The swelling is accompanied by pain. She had been using gel nail angolan on her toes, which was removed last night, but the redness and swelling persist. She is uncertain if this could be an allergic reaction. The onset of her symptoms was sudden, with her left leg swelling up one morning. She also reports generalized swelling, including in her fingers, making it difficult to wear her ring. She experiences facial puffiness upon waking and has gained significant weight over the past month. Her shortness of breath has worsened in recent days. She has not introduced any new vlit-zzr-hkksidp vitamins or supplements. She has been experiencing these symptoms for over 2 months. - Onset: Sudden onset of left leg swelling one morning; generalized swelling for over 2 months. - Location: Left leg, fingers, face. - Duration: Persistent leg swelling since yesterday; generalized swelling for over 2 months. - Character: Redness and swelling in leg; generalized swelling including fingers and face; facial puffiness upon waking; significant weight gain. - Alleviating/Aggravating Factors: No new dnzk-zba-ibjeolw vitamins or supplements; stopped taking turmeric for a couple of weeks without any change; Lasix 40 mg twice a day has not been effective. - Severity: Significant weight gain (about 70 pounds since 03/2024); shortness of breath worsened in recent days; difficulty performing basic tasks due to swelling. Rashes Under Skin Folds She has noticed rashes under her skin folds, which is unusual for her. She has been using nystatin ointment and powder, which seem to help as the rash clears up in one area and then appears in another. - Onset: Not specified. - Location: Under skin folds. - Duration: Not specified. - Character: Rashes under skin folds. - Alleviating Factors: Nystatin ointment and powder help clear up the rash. - Severity: Rash clears up in one area and then appears in another. Sleep Apnea She has a sleep study scheduled for 01/2025. Her podiatric foot and ankle specialist diagnosed her with sleep apnea based on her symptoms and echocardiogram results. She has previously undergone a sleep study at a lab, which she found unsatisfactory due to discomfort and inadequate sleep. She has fibromyalgia and back problems. She was informed that a home sleep study would not be as accurate. She has been advised to call every Tuesday to check for cancellations. Her partner recorded her sleeping and noticed a clicking noise, which she believes is due to her tongue blocking her nasal passage as she breathes through her nose. - Onset: Not specified. - Location: Not specified. - Duration: Not specified. - Character: Sleep apnea diagnosed based on symptoms and echocardiogram results; clicking noise during sleep. - Alleviating Factors: Not specified. - Severity: Discomfort and inadequate sleep during lab sleep study. Severe Lower Back Pain She has been experiencing severe lower back pain, described as a burning sensation, which prompted an x-ray. She cannot take Motrin as it causes swelling. She is currently taking extra strength Tylenol. - Onset: Not specified. - Location: Lower back. - Duration: Not specified. - Character: Severe lower back pain described as a burning sensation. - Alleviating/Aggravating Factors: Cannot take Motrin as it causes swelling; currently taking extra strength Tylenol. - Severity: Severe pain prompting an x-ray. Insulin Resistance Her podiatric foot and ankle specialist mentioned that she is insulin resistant based on her last A1c level. - Onset: Not specified. - Location: Not specified. - Duration: Not specified. - Character: Insulin resistance based on last A1c level. - Severity: Not specified. Additional Information She has undergone an echocardiogram and blood work. She reports no abdominal pain but does experience constant joint pain. She has not been tested for rheumatoid arthritis. She reports no history of gout, tick bites, or lead exposure. She has gained about 70 pounds since 03/2024, even though her diet has remained largely unchanged. She is not taking any hormones or NSAIDs. She does not wake up gasping for air or need to prop herself up with pillows. She has been referred to a vascular specialist. She has not had a CT scan of her abdomen. She is not . She has been on propranolol for a long time. She stopped taking Tylenol for 2 days but did not notice any difference. She finds that turmeric helps with her inflammation. She is on thyroid medication and recently had her thyroid levels checked by her glass rolling machine operator. She is taking iron supplements and is slightly anemic. She is on Amitiza as needed for constipation, but her bowel movements have been regular lately. She is on Mag-Ox twice a day. She is on B complex, cephalexin, vitamin D, collagen, Lexapro, ferrous sulfate, losartan, hydrochlorothiazide, Amitiza, Mag-Ox, and propranolol. SOCIAL HISTORY The patient has smoked about half a pack a day in the past but has quit for a while. FAMILY HISTORY Her mother has diabetes. I have reviewed and reconciled the history and medication list with the patient today. HISTORIES: PAST MEDICAL HISTORY: Past Medical History: Diagnosis Date Acquired absence of uterus with remaining cervical stump Anxiety Bladder disorder Chronic fatigue Depression Fibromyalgia SANDRA (generalized anxiety disorder) Graves disease Hypertension Hypothyroidism (acquired) Irritable bowel syndrome with constipation 01/24/2024 Lyme disease Mixed stress and urge urinary incontinence Morbid obesity with BMI of 40.0-44.9, adult ([facility]) Nonscarring hair loss, unspecified Postprocedural hypothyroidism Primary [...] Yes Types: Marijuana Depression: Not at risk (08/01/2024) PHQ-2 PHQ-2 Score: 0 FAMILY HISTORY: Family History Problem Relation Name Age of Onset Diabetes type II Mother Hypertension Mother Depression Mother Heart disease Brother x 3 Lymphoma Maternal Grandmother Breast cancer Paternal Grandmother Mental illness Son x 2 MEDICATIONS: Current Outpatient Medications Medication Instructions B Qdufqhe-Clukdc-BA (Super Quints B-50) tablet Take by mouth cholecalciferol (VITAMIN D-3) 50 mcg, Oral, Daily RT COLLAGEN PO Take by mouth dilTIAZem XR (DILACOR XR) 240 mg, Daily escitalopram (LEXAPRO) 20 mg, Daily ferrous sulfate 325 mg, Daily with breakfast furosemide (LASIX) 40 mg, Oral, Daily levothyroxine (SYNTHROID, LEVOXYL) 125 mcg, Oral, Daily [...] ointment Apply thin film BID prn irritation potassium chloride CR (Klor-Con M10) 10 MEQ ER tablet 10 mEq, Oral, Daily, Do not crush or chew. Probiotic Product (PRO-BIOTIC BLEND PO) Take by mouth propranolol (INDERAL) 20 mg, 2 times daily Turmeric (QC TUMERIC COMPLEX PO) Take by mouth ALLERGIES: No Known Allergies PHYSICAL EXAM: Visit Vitals BP 128/80 (BP Location: Left arm, Patient Position: Sitting) Pulse 90 Ht 5' 7 Wt 320 lb SpO2 97% BMI 50.12 kg/m Smoking Status Every Day BSA 2.62 m BP Readings from Last 3 Encounters: 12/06/24 128/80 11/21/24 140/80 10/09/24 134/80 Wt Readings from Last 3 Encounters: 12/06/24 320 lb 11/21/24 309 lb 10/09/24 312 lb Physical Exam Constitutional: General: She is not in acute distress. Appearance: Normal appearance. HENT: Head: Normocephalic. Eyes: Extraocular Movements: Extraocular movements intact. Neck: Vascular: No carotid bruit. Cardiovascular: Rate and Rhythm: Normal rate and regular rhythm. Heart sounds: Normal heart sounds. No murmur heard. Pulmonary: Effort: Pulmonary effort is normal. No respiratory distress. Breath sounds: Normal breath sounds. No wheezing, rhonchi or rales. Abdominal: General: Bowel sounds are normal. Palpations: Abdomen is soft. Tenderness: There is no abdominal tenderness. Musculoskeletal: General: Swelling present. Normal range of motion. Cervical back: Normal range of motion. Right lower leg: Edema present. Left lower leg: Edema present. Comments: anasarca Skin: General: Skin is warm and dry. Neurological: Mental Status: She is alert and oriented to person, place, and time. Psychiatric: Mood and Affect: Mood normal. Thought Content: Thought content normal. Judgment: Judgment normal. Results Labs - Free T3: 3.12 - TSH: 1.89 - Free T4: 0.90 - Glucose: 72 - BNP: 54 - Total Protein: 6.0 Imaging - Echocardiogram: 60 to 65% ejection fraction and mild pulmonary hypertension - X-ray of the lumbar spine: Mild degenerative changes L4-S1 ASSESSMENT AND PLAN: Assessment & Plan 1. Bilateral lower extremity edema (Primary) - Sedimentation rate, automated; Future - Comprehensive metabolic panel; Future - Rheumatoid factor; Future - WILL; Future - Hemoglobin a1c with eag; Future - Microalbumin / creatinine urine ratio; Future - Urinalysis with reflex microscopic; Future - Magnesium; Future - Protein electrophoresis, serum; Future - FREE K+L LT CHAINS,QN,S; Future - High sensitivity CRP; Future - XR chest 2 views - Persistent bilateral leg swelling despite being on Lasix 40 mg twice a day, with minimal improvement and associated pain. - Differential diagnoses include venous insufficiency and potential allergic reaction to gel nail angolan. - Urinalysis will be conducted to check for proteinuria. - Chest x-ray will be performed today. 2. Pulmonary hypertension (HCC) - Sedimentation rate, automated; Future - Comprehensive metabolic panel; Future - Rheumatoid factor; Future - WILL; Future - Hemoglobin a1c with eag; Future - Microalbumin / creatinine urine ratio; Future - Urinalysis with reflex microscopic; Future - Magnesium; Future - Protein electrophoresis, serum; Future - FREE K+L LT CHAINS,QN,S; Future - High sensitivity CRP; Future 3. Dyspnea, unspecified type -Sedimentation rate, automated; Future - Comprehensive metabolic panel; Future - Rheumatoid factor; Future - WILL; Future - Hemoglobin a1c with eag; Future - Microalbumin / creatinine urine ratio; Future - Urinalysis with reflex microscopic; Future - Magnesium; Future - Protein electrophoresis, serum; Future - FREE K+L LT CHAINS,QN,S; Future - High sensitivity CRP; Future - Reports worsening shortness of breath over the last few days. - Echocardiogram shows 60-65% ejection fraction and mild pulmonary hypertension. - Chest x-ray will be performed today to further evaluate. 4. Snoring - Sedimentation rate, automated; Future - Comprehensive metabolic panel; Future - Rheumatoid factor; Future - WILL; Future - Hemoglobin a1c with eag; Future - Microalbumin / creatinine urine ratio; Future - Urinalysis with reflex microscopic; Future - Magnesium; Future - Protein electrophoresis, serum; Future - FREE K+L LT CHAINS,QN,S; Future - High sensitivity CRP; Future - XR chest 2 views 5. Anasarca - Sedimentation rate, automated; Future - Comprehensive metabolic panel; Future - Rheumatoid factor; Future - WILL; Future - Hemoglobin a1c with eag; Future - Microalbumin / creatinine urine ratio; Future - Urinalysis with reflex microscopic; Future - Magnesium; Future - Protein electrophoresis, serum; Future - FREE K+L LT CHAINS,QN,S; Future - High sensitivity CRP; Future - XR chest 2 views 6. Essential hypertension - Sedimentation rate, automated; Future - Comprehensive metabolic panel; Future - Rheumatoid factor; Future - WILL; Future - Hemoglobin a1c with eag; Future - Microalbumin / creatinine urine ratio; Future - Urinalysis with reflex microscopic; Future - Magnesium; Future - Protein electrophoresis, serum; Future - FREE K+L LT CHAINS,QN,S; Future - High sensitivity CRP; Future - XR chest 2 views 7. History of anemia - Sedimentation rate, automated; Future - Comprehensive metabolic panel; Future - Rheumatoid factor; Future - WILL; Future - Hemoglobin a1c with eag; Future - Microalbumin / creatinine urine ratio; Future - Urinalysis with reflex microscopic; Future - Magnesium; Future - Protein electrophoresis, serum; Future - FREE K+L LT CHAINS,QN,S; Future - High sensitivity CRP; Future - Slightly anemic and currently taking iron supplements. - Iron studies will be conducted to monitor anemia status. 8. Hypoalbuminemia - Sedimentation rate, automated; Future - Comprehensive metabolic panel; Future - Rheumatoid factor; Future - WILL; Future - Hemoglobin a1c with eag; Future - Microalbumin / creatinine urine ratio; Future - Urinalysis with reflex microscopic; Future - Magnesium; Future - Protein electrophoresis, serum; Future - FREE K+L LT CHAINS,QN,S; Future - High sensitivity CRP; Future - Consistently low total protein levels (6.0), contributing to generalized swelling. - Serum protein electrophoresis (SPEP) and serum free light chain analysis (sFLC) will be conducted to investigate hypoalbuminemia. 9. Hypoproteinemia (HCC) - Sedimentation rate, automated; Future - Comprehensive metabolic panel; Future - Rheumatoid factor; Future - WILL; Future - Hemoglobin a1c with eag; Future - Microalbumin / creatinine urine ratio; Future - Urinalysis with reflex microscopic; Future - Magnesium; Future - Protein electrophoresis, serum; Future - FREE K+L LT CHAINS,QN,S; Future - High sensitivity CRP; Future - XR chest 2 views 10. Low back pain: Severe. - Severe low back pain with a burning sensation, persistent and non-responsive to Tylenol. - X-ray shows mild degenerative changes at L4-S1. - Continue using extra strength Tylenol for pain management. 11. Hypothyroidism. - Thyroid function tests within normal limits (Free T3: 3.12, TSH: 1.89, Free T4: 0.90). - Continue current thyroid medication regimen. 12. Medication management. - Current medications include B complex, cephalexin, vitamin D, collagen, Lexapro, ferrous sulfate, losartan, hydrochlorothiazide, Amitiza (as needed), Mag-Ox, propranolol. 13. Sleep apnea. - Coded as having sleep apnea by podiatric foot and ankle specialist based on symptoms and echocardiogram. - Sleep study scheduled for 01/2025. Follow-up - Follow-up in [address] Coon was present in office suite today and is supervising patient care and available for consult. I'm following his plan of care for the above problems. Previous notes and plan were reviewed and followed. documented in this encounter [facility] 11-29-2024 Evaluation note Diagnosis Onset Date Resolution Acquired hypothyroidism acute J [email or web address] 9:36am Anxiety and depression acute 2024 9:36am Chronic back pain acute November 9:36am Insomnia acute November 29, 2024 9:36am Pulmonary hypertension acute 2024 9:36am Sleep apnea acute November 29 9:36am Sleep related hypoxia acute Nov 9:36am [facility] Work Phone: [phone] NotePatient Education Urology Botulinum Toxin Bladder Injection A [...] may be repeated as needed. The treatment is done once and it usually lasts for 6 months. Your health care provider will monitor you to see how well you respond. Tell a health care provider about: ??? Any allergies you have. ??? All medicines you are taking, including vitamins, herbs, eye drops, creams, and podo-lrv-xghnmss medicines. ??? Any problems you or family members have had with anesthetic medicines. ??? Any bleeding problems you have. ??? Any surgeries you have had. ??? Any medical conditions you have. ??? Any previous reactions to a botulinum toxin injection. ??? Any symptoms of urinary tract infection. These include chills, fever, a burning feeling when passing urine, and needing to pass urine often. ??? Whether you are or may be . What are the risks? Generally this is a safe procedure. However, problems may occur, including: ??? Not being able to pass urine. If this happens, you may need to have your bladder emptied with athin tube (urinary catheter). ??? Bleeding. ??? Urinary tract infection. ??? Allergic reaction to the botulinum toxin. ??? Pain or burning when passing urine. ??? Damage to nearby structures or organs. What happens before the procedure? When to stop eating and drinking Follow instructions from your health care provider about what you may eat and drink before your procedure. These may include: ??? 8 hours before the procedure ? Stop eating most foods. Do not eat meat, fried foods, or fatty foods. ? Eat only light foods, such as toast or crackers. ? All liquids are okay except energy drinks and alcohol. ??? 6 hours before the procedure ? Stop eating. ? Drink only clear liquids, such as water, clear fruit juice, black coffee, plain tea, and sports drinks. ? Do not drink energy drinks or alcohol. ??? 2 hours before the procedure ? Stop drinking all liquids. ? You may be allowed to take medicines with small sips of water. If you do not follow your health care provider's instructions, your procedure may be delayed or canceled. Medicines Ask your health care provider about: ??? Changing or stopping your regular medicines. This is especially important if you are taking diabetes medicines or blood thinners. ??? Taking medicines such as aspirin and ibuprofen. These medicines can thin your blood. Do not take these medicines unless your health care provider tells you to take them. ??? Taking wyov-qtb-fmcwjmh medicines, vitamins, herbs, and supplements. General instructions ??? Ask your health care provider what steps will be taken to help prevent infection. These steps may include: ? Removing hair at the procedure site. ? Washing skin with a germ-killing soap. ? Taking antibiotic medicine. ??? If you will be going home right after the procedure, plan to have a responsible adult: ? Take you home from the hospital or clinic. You will not be allowed to drive. ? Care for you for the time you are told. What happens during the procedure? You will be asked to empty your bladder. ??? An IV will be inserted into one of your veins. ??? You will be given one or more of the following: ? A medicine to help you relax (sedative). ? A medicine to numb the area (local anesthetic). ? A medicine to make you fall asleep (general anesthetic). ??? A long, thin scope called a cystoscope will be passed into your bladder through the part of thebody that carries urine from your bladder (urethra). ??? The cystoscope will be used to fill your bladder with water. ??? A long needle will be passed through the cystoscope and into the bladder. ??? The botulinum toxin will be injected into your bladder. It may be injected into multiple areas of your bladder. ??? The cystoscope will be removed and your bladder will be emptied with a urinary catheter. The procedure may vary among health care providers and hospitals. What can I expect after the procedure? After your procedure, it is common to have: ??? Blood-tinged urine. ??? Burning or soreness when you pass urine. Follow these instructions at home: Medicines ??? Take lpai-hbw-phejdwr and prescription medicines only as told by your health care provider. ??? If you were prescribed an antibiotic medicine, take it as told by your health care provider. Donot stop using the antibiotic even if you start to feel better. General instructions ??? If you were given a sedative during the procedure, (more content not included)...[facility]06-25-2025 History of Present illness Narrative* Dalia Dennis NP - 11/21/2024 10:15 AM EDT Images from the original note were not included. Lupe Pickard is a 49 y.o. female presents with chief complaint of bilateral leg swelling and pain HPI: History of Present Illness The patient presents for evaluation of lower extremity edema and sleep apnea. Lower Extremity Edema She reports a sudden onset of swelling in her legs, with the right leg being more affected than theleft. The initial episode occurred approximately 2 months ago, at which time she was prescribed Lasix. Despite daily administration of Lasix, she perceives a progressive worsening of the condition. The affected areas are described as red, warm, and painful upon swelling. She has not been exposed tosunlight and does not wear shorts outdoors. She also mentions that her toenail detached last summerand is currently regrowing. She does not apply lotion to her legs and rarely shaves them. She is under the care of a podiatric foot and ankle specialist at [facility] and does not have a primary care physician. She has an upcoming appointment with urology due to a history of urine retention and suspects that inadequateurine output may be contributing to her current symptoms. She takes Lasix in the afternoon and requires a refill. - Onset: Sudden onset approximately 2 months ago. - Location: Legs, with the right leg more affected than the left. - Duration: Progressive worsening over 2 months. - Character: Swelling described as red, warm, and painful. - Alleviating/Aggravating Factors: Daily administration of Lasix; suspects inadequate urine output may be contributing. - Timing: Takes Lasix in the afternoon. - Severity: Progressive worsening despite Lasix; requires a refill. Sleep Apnea She has been informed of her snoring habit and is considering a repeat sleep study, preferably a home-based one. I have reviewed and reconciled the history and medication list with the patient today. HISTORIES: PAST MEDICAL HISTORY: Past Medical History: Diagnosis Date Acquired absence of uterus with remaining cervical stump Anxiety Bladder disorder Chronic fatigue Depression Fibromyalgia SANDRA (generalized anxiety disorder) Graves disease Hypertension Hypothyroidism (acquired) Irritable bowel syndrome with constipation 01/24/2024 Lyme disease Mixed stress and urge urinary incontinence Morbid obesity with BMI of 40.0-44.9, adult ([facility]) Nonscarring hair loss, unspecified Postprocedural hypothyroidism [...] Yes Types: Marijuana Depression: Not at risk (08/01/2024) PHQ-2 PHQ-2 Score: 0 FAMILY HISTORY: Family History Problem Relation Name Age of Onset Diabetes type II Mother Hypertension Mother Depression Mother Heart disease Brother x 3 Lymphoma Maternal Grandmother Breast cancer Paternal Grandmother Mental illness Son x 2 MEDICATIONS: Current Outpatient Medications Medication Instructions B Blwtikj-Luzxmb-VW (Super Quints B-50) tablet Take by mouth cephalexin (KEFLEX) 500 mg, Oral, 3 times daily cholecalciferol (VITAMIN D-3) 50 mcg, Oral, Daily RT COLLAGEN PO Take by mouth dilTIAZem XR (DILACOR XR) 240 mg, Daily escitalopram (LEXAPRO) 20 mg, Daily ferrous sulfate 325 mg, Daily with breakfast furosemide (LASIX) 40 mg, Oral, Twice a day (morning and mid-day) levothyroxine (SYNTHROID, LEVOXYL) 125 mcg, Oral, Daily liothyronine (CYTOMEL) 5 mcg, Oral, Daily lubiprostone (AMITIZA) 24 mcg, Daily PRN magnesium oxide (MAG-OX) 400 mg, 2 times daily melatonin 10 MG tablet Take by mouth metroNIDAZOLE (Metrogel) 0.75 % gel Apply twice daily to rosacea for 8 weeks. Multiple Vitamin (Multi Vitamin Daily) tablet Take by mouth nystatin (Mycostatin) ointment Apply thin film BID prn irritation potassium chloride CR (Klor-Con M10) 10 MEQ ER tablet 20 mEq, Oral, Daily, Do not crush or chew. Probiotic Product (PRO-BIOTIC BLEND PO) Take by mouth propranolol (INDERAL) 20 mg, 2 times daily Turmeric (QC TUMERIC COMPLEX PO) Take by mouth ALLERGIES: No Known Allergies PHYSICAL EXAM: Visit Vitals BP 140/80 Pulse 75 Wt 309 lb SpO2 97% BMI 48.40 kg/m Smoking Status Every Day BSA 2.57 m BP Readings from Last 3 Encounters: 11/21/24 140/80 10/09/24 134/80 08/14/24 (!) 140/100 Wt Readings from Last 3 Encounters: 11/21/24 309 lb 10/09/24 312 lb 08/14/24 287 lb Physical Exam HENT: Mouth/Throat: Mouth: Mucous membranes are moist. Cardiovascular: Rate and Rhythm: Normal rate and regular rhythm. Heart sounds: No murmur heard. No friction rub. No gallop. Pulmonary: Effort: Pulmonary effort is normal. Breath sounds: Normal breath sounds. Musculoskeletal: Right lower le+ Pitting Edema present. Left lower le+ Pitting Edema present. Skin: General: Skin is warm and dry. Findings: Erythema (RLE with warmth) present. Neurological: Mental Status: She is alert and oriented to person, place, and time. Psychiatric: Mood and Affect: Mood normal. Thought Content: Thought content normal. Physical Exam Respiratory: Clear to auscultation, no wheezing, rales or rhonchi Cardiovascular: Regular rate and rhythm, no murmurs, rubs, or gallops Extremities: Redness and warmth noted in the lower extremities, no visible breaks in the skin Results Labs - BNP: 11/09/2024, Normal - Kidney function tests: 11/09/2024, Normal Imaging - Echocardiogram: Normal Diagnostic Testing - Sleep study: 01/18/2023, No evidence of significant obstructive sleep apnea. Apnea-hypopnea indexwas 0.6/h. No evidence of oxygen desaturation was present. Elevated leg movement index of 28.4/h ofuncertain clinical significance. ASSESSMENT AND PLAN: Assessment & Plan 1. Bilateral lower extremity edema (Primary) Lower extremity edema: Chronic. - BNP and BMP results from 11/09/2024 were within normal limits, indicating no renal impairment. Presence of erythema and warmth in the lower extremities raises concerns about potential cellulitis, despite the absence of any visible skin breakage. - Increase Lasix dosage to 40 mg twice daily. - Provide prescription refill for 60 tablets of Lasix. - Adjust potassium dosage to 20 mEq twice daily. - Provide prescription refill for 60 tablets of potassium. - Prescribe Keflex 500 mg, to be taken three times daily for 7 days. - Conduct blood test today to assess BNP and BMP levels. - Schedule another blood test in a week to monitor renal function. - Elevate legs as much as possible. Limit high salt foods. Exercise regularly. - furosemide (Lasix) 40 MG tablet; Take 1 tablet (40 mg) by mouth in the morning and 1 tablet (40 mg) at noon. Dispense: 60 tablet; Refill: 0 - potassium chloride CR (Klor-Con M10) 10 MEQ ER tablet; Take 2 tablets (20 mEq) by mouth Daily Do not crush or chew. Dispense: 60 tablet; Refill: 0 - Basic metabolic panel; Future - B-type natriuretic peptide; Future - Basic metabolic panel - B-type natriuretic peptide - Basic metabolic panel; Future - Basic metabolic panel 2. Essential hypertension BP slightly up today. Continue to monitor at home and call if elevated. 3. Pulmonary hypertension (HCC) Mild pulmonary HTN on recent ECHO. Denies increasing SOB. 4. Cellulitis of right lower extremity Start ATB as directed. Encouraged to apply lotion to the legs daily to avoid excessive dryness. - cephalexin (Keflex) 500 MG capsule; Take 1 capsule (500 mg) by mouth in the morning and 1 capsule(500 mg) in the evening and 1 capsule (500 mg) before bedtime. Do all this for 7 days. Dispense: 21capsule; Refill: 0 5. Snoring Sleep apnea. - Previous sleep study on 01/18/2023 showed no evidence of significant obstructive sleep apnea per pt. She pulled up the report on her phone. Elevated leg movement index of 28.4/h of uncertain clinical significance. - Refer to sleep specialist with a request for consideration of a home study versus an inpatient one. - Willing to repeat the sleep study, preferably at home. - Ambulatory referral to Sleep Medicine; Future Follow-up - Blood test today and another in a week. - Appointment with urology on Tuesday. documented in this [facility]05-20-2025 History of Present illness Narrative* Amanda Montiel MD - 10/16/2024 1:54 PM EDT yeast documented in this [facility]05-13-2025 History of Present illness Narrative* MARITZA Corbin - 10/09/2024 10:15 AM EDT Images from the original note were not included. Lupe Pickard is a 49 y.o. female presents with chief complaint of Edema (Patient is here today withcomplaints of bilateral lower extremity edema x 1 month. Swelling is constant and worsens throughout the day. Rt foot pain. Intermittent SOB with exertion. Denies chest pain. Weight gain 05 25 poundssince 08/14 OV) HPI: History of Present Illness The patient is a 49-year-old female who presents for evaluation of bilateral lower extremity edema,which has been ongoing for 1 month and worsens throughout the day. She also reports mild shortness of breath with exertion. She reports persistent leg swelling that does not subside even during sleep. The swelling intensifies as the day progresses, reaching its peak at night. She experiences mild dyspnea, particularly during physical activity, a symptom that has emerged within the past week. She recalls an episode of severe leg swelling the previous night, describing it as twice the usual size and associated with pain. She also reports mild leg pain, initially localized to the dorsal aspect of her foot, which occasionally intensifies upon weight-bearing, creating a sensation of instability. She denies orthopnea. She reports an episode like this in the past which was due to anti-inflammatory medications and has not introduced any new medications or dietary changes. Her salt intake remains consistent. She spendsa significant portion of her day on her feet and has observed pitting edema at night, which was particularly pronounced the previous night. Her urinary function is normal. She has not been prescribeddiuretics for this condition but was previously on diuretics for pseudotumor cerebri approximately 13 years ago. She has not experienced any issues related to pseudotumor cerebri since then and does not report any headaches. She is not currently monitoring her blood pressure. She reports that her rosacea is flaring up severely. She is uncertain about when she can see her grain trader. She was previously prescribed clindamycin phosphate cream and an oral antibiotic by [facility], but she no longer takes the antibiotic. She is requesting something to use until she gets back in with derm. FAMILY HISTORY Her younger brother had a heart attack and at the age of 42. I have reviewed and reconciled the history and medication list with the patient today. HISTORIES: PAST MEDICAL HISTORY: Past Medical History: Diagnosis Date Acquired absence of uterus with remaining cervical stump Anxiety Bladder disorder Chronic fatigue Depression (CMS/HCC) Fibromyalgia SANDRA (generalized anxiety disorder) (CMS/HCC) Graves disease (CMS/HCC) Hypertension (CMS/HCC) Hypothyroidism (acquired) (CMS/HCC) Irritable bowel syndrome with constipation 01/24/2024 Lyme disease Mixed stress and urge urinary incontinence Morbid obesity with BMI of 40.0-44.9, adult (CMS/HCC) Nonscarring hair loss, unspecified Postprocedural hypothyroidism ([facility]) Primary osteoarthritis involving multiple joints 01/24/2024 Urinary [...] Yes Types: Marijuana Depression: Not at risk (08/01/2024) PHQ-2 PHQ-2 Score: 0 FAMILY HISTORY: Family History Problem Relation Name Age of Onset Diabetes type II Mother Hypertension Mother Depression Mother Heart disease Brother x 3 Lymphoma Maternal Grandmother Breast cancer Paternal Grandmother Mental illness Son x 2 MEDICATIONS: Current Outpatient Medications Medication Instructions B Ozynmgw-Bzxjxh-QV (Super Quints B-50) tablet Take by mouth cholecalciferol (VITAMIN D-3) 50 mcg, Oral, Daily RT COLLAGEN PO Take by mouth dilTIAZem XR (DILACOR XR) 240 mg, Daily escitalopram (LEXAPRO) 20 mg, Daily ferrous sulfate 325 mg, Daily with breakfast levothyroxine (SYNTHROID, LEVOXYL) 125 mcg, Oral, Daily liothyronine (CYTOMEL) 5 mcg, Oral, Daily lubiprostone (AMITIZA) 24 mcg, Daily PRN magnesium oxide (MAG-OX) 400 mg, 2 times daily melatonin 10 MG tablet Take by mouth Multiple Vitamin (Multi Vitamin Daily) tablet Take by mouth Probiotic Product (PRO-BIOTIC BLEND PO) Take by mouth propranolol (INDERAL) 20 mg, 2 times daily Turmeric (QC TUMERIC COMPLEX PO) Take by mouth ALLERGIES: No Known Allergies PHYSICAL EXAM: Visit Vitals BP 134/80 (BP Location: Left arm, Patient Position: Sitting) Pulse 82 Ht 5' 7 Wt 312 lb SpO2 97% BMI 48.87 kg/m Smoking Status Every Day BSA 2.59 m BP Readings from Last 3 Encounters: 10/09/24 134/80 08/14/24 (!) 140/100 08/01/24 124/80 Wt Readings from Last 3 Encounters: 10/09/24 312 lb 08/14/24 287 lb 08/01/24 286 lb 6.4 oz Physical Exam General Examination: alert, oriented, normal affect, well-appearing, in no acute distress, well developed, well nourished. Head: normocephalic, atraumatic Eyes: sclera non-icteric Heart: regular rate and rhythm, S1, S2 normal, no carotid bruits, no JVD Lungs: clear to auscultation bilaterally. No wheezes, rales, rhonchi. Extremities: 1-2+ pitting edema b/l LE, no cyanosis Psych: alert, oriented, cognitive function intact, cooperative with exam. Results ASSESSMENT AND PLAN: Assessment & Plan 1. Bilateral lower extremity edema. - Symptoms include swelling that worsens throughout the day and mild shortness of breath with exertion. - Physical examination reveals significant pitting edema. - Echocardiogram and blood work will be ordered to assess cardiac and renal function. - Advised to wear EMILY hose during her flight and perform calf pumps; informed about signs of deep vein thrombosis. - After obtaining blood work she will call us when she gets home from [place] on 10/15 and if persistent we will give her lasix 20 mg daily x 5 days and check potassium in 3-4 days. Last potassium was 4.3 2 months ago. 2. Rosacea. - Current treatment with clindamycin phosphate cream is ineffective. - Previously prescribed oral antibiotic is no longer being taken. - Dermatology notes were not available in her chart today. - She is going to [place] on and coming back on 10/15/24, we are going to have her use topical metronidazole daily x 8 weeks with thin layer. But she is not to start this [place]. She will need to follow up with dermatology. documented in this encounterCenterPointe [id number] Evaluation note* Diagnosis Onset Date Resolution Status Admit Date Rotator cuff syndrome of right shoulder acute July 19 2:50pm [facility] Work Phone: 1(908) 397-168712-16-2024 Evaluation note* Diagnosis Onset Date Resolution Status Admit Date Acute bacterial sinusitis noneactive May 14, 2024 1:54pm Acute bronchitis noneactive May 14, 2024 1:54pm [facility] Work Phone: 1(285) 673-573712-16-2024 Evaluation note* Diagnosis Onset Date Resolution Status Admit Date Acute bacterial sinusitis noneactive May 14, 2024 1:54pm Acute bronchitis noneactive May 14, 2024 1:54pm Rotator cuff syndrome of right shoulder acute July 19, 025 2:50pm [place] Work Phone: [phone]) 725-599312-09-2024 Telephone encounter Note* Telephone Encounter - Cristobal Michaels - 05/07/2024 10:37 AM EST Please refill levothyroxine thank you! [facility] [id number] Miscellaneous Notes* Telephone Encounter - Cristobal Michaels - 05/07/2024 10:37 AM EST Please refill levothyroxine thank you! documented in this encounterCenterPointe [id number] History of Present illness Narrative* Betty Lawrence NP - 03/07/2024 11:15 AM EDT Oral prednisone to start tomorrow. Patient has had bursa site injections when she was a patient of Dr. Billings. If the IM steroid and oral steroid does not help will schedule with Dr. Sanderson if he is agreeable. documented in this encounterCenterPointe [id number] History of Present illness Narrative* Eliana Ch MA - 03/07/2024 11:00 AM EDT Subjective Patient ID: Lupe Pickard (: 1975) is a 48 y.o. female who presents for No chief complaint on file.. HPI Pt presents for right hip bursitis, nurse visit only. History of Present Illness Current Outpatient Medications Medication Instructions B Mwocrwv-Dbrzvn-CS (Super Quints B-50) tablet Oral Calcium Carb-Cholecalciferol (CALCIUM 600 + D PO) Oral cholecalciferol (Vitamin D-3) 50 MCG (1999 UT) capsule 1 capsule, Oral, Daily RT COLLAGEN [...] mg 1 (one) time per week for 14days. temazepam (Restoril) 30 MG capsule 1 capsule, Oral, Nightly PRN Turmeric (QC TUMERIC COMPLEX PO) Oral Wegovy 0.25 mg, Subcutaneous, Weekly No Known Allergies Patient Active Problem List Diagnosis Vitamin D deficiency Acquired hypothyroidism (CMS/HCC) Irritable bowel syndrome with constipation Urinary retention Mixed stress and urge urinary incontinence Fibromyalgia Primary osteoarthritis involving multiple joints SANDRA (generalized anxiety disorder) (CMS/HCC) Moderate major depression (CMS/HCC) Essential hypertension (CMS/HCC) History of anemia Chronic bilateral thoracic back [...] -No follow-ups on file. documented in this encounterCenterPointe [id number] History of Present illness Narrative* Kenyetta Dove MD - 02/28/2024 9:50 AM EDT Lupe Pickard is a 48 y.o. female Kenyetta Dove MD presents with chief complaint of Thyroid Problem and Follow-up HPI: Interim History 02/2024: Follow-up visit 02/28/2024 TSH 4.01, free T3 of 3.2 (2.5-3.9), FT4 1.1 (0.61- 1.12). on levothyroxineto 112 Cytomel 5 mcg am Interim History 01/2023: Follow-up visit 02/21/2023 tsh 0.24, free T3 of 3.89 (2.5-3.9), FT4 0.87 (0.61- 1.12). on levothyroxine to 100 Cytomel 10 mcg [...] T4 1, free T3 3.47. We cut herlevothyroxine to 137 mcg and liothyronine to 5 mcg 2 tablets in am Interim History: 11/2020 Follow-up office visit 12/10/2020 for hypothyroidism. TSH 0.01, free T4 1.11, free T3 3.61. We cut her levothyroxine to 150 mcg and liothyronine to 5 mcg twice a day. Interim History: 08/2020 Follow-up office visit 09/23/2020 for hypothyroidism. She is on due to instability with her labs onthe high side; TSH 0.01, free T4 1.61, free T3 5.02. We cut her levothyroxine to 150 mcg and liothyronine to 5 mcg twice a day. New labs in August/2020: TSH is still suppressed at 0.01, but free T4 iswithin normal limits 1.01 and free T3 3.53. [...] First of all she was on 137 mcgdaily, then switched to Nature Thyroid then went to levothyroxine with Cytomel (liothyronine) and then in February/2020 labs TSH suppressed, free T4 normal, free T3 high. Currently she is on thyroid DRY DIP WORKER natural 60 mcg twice a day, cut back from 90 mcg twice a day and levothyroxine 50 mcg one-half tablet twice a day. SUBJECTIVE: MEDICATIONS: Current Outpatient Medications Medication Instructions B Wttbuvs-Odrlqe-AH (Super Quints B-50) tablet Oral Calcium Carb-Cholecalciferol (CALCIUM 600 + D PO) Oral cholecalciferol (Vitamin D-3) 50 MCG (1999 UT) capsule 1 capsule, Oral, Daily RT COLLAGEN [...] mg 1 (one) time per week for 14days. temazepam (Restoril) 30 MG capsule 1 capsule, [...] 5 mcg once daily, we will check labin 6 months and adjust Encounter for dietary consultation Vitamin D deficiency Class 3 severe obesity without serious comorbidity with body mass index (BMI) of 40.0 to 44.9 in adult, unspecified obesity type (CMS/HCC) Diet exercise reviewed with the patient Follow up in about 1 year (around 02/27/2025). documented in this encounterCenterPointe [id number] History of Present illness Narrative* Melissa Coon MD - 01/24/2024 3:00 PM EDT Images from the original note were not included. Lupe Pickard is a 48 y.o. female presents with chief complaint of Establish Care HPI: Patient is being [facility] to [facility]. Former PCP was Dr. Singh, last seen approximately 2 months ago. She follows with several specialists, Dr. Ozuna, Dr. Dove, [facility], [facility] cardiology and Radha Mcintosh NP ([facility]). Patient would like to discuss weight loss options and hormone testing. She has been trying to lose weight by dieting and exercising. She has history of lumbar injections and is scheduled tomorrow with pain clinic to discuss possible nerve stimulator implant. History of Present Illness The patient presents for evaluation of multiple medical concerns. She is seeking assistance with weight loss. Her previous primary care physician, Dr. Billings, was hesitant to prescribe Adipex due to potential heart-related complications. She has experienced heart palpitations and high blood pressure, which may be anxiety-related as they have resolved since starting Lexapro. However, she has had episodes of palpitations without feeling anxious. Despite extensive cardiac testing, including stress tests and nuclear stress tests, no cause for her symptoms was found. She had several emergency room visits last year due to high blood pressure. She monitors her blood pressure nightly at home, which is typically normal, although it was slightly elevated one morning last week. She is currently taking propranolol 20 mg twice a day and diltiazem. She underwent blood work approximately 6 months ago under the care of Dr. Singh. She has also hadan EGD and colonoscopy, but the exact date is uncertain. She was previously under the care of a shipboard intelligence analyst, Dr. Brambila, who conducted blood tests and ruled out any form of rheumatoid arthritis. Her last gynecological check-up with Dr. Montiel. She has had her thyroid removed and is on daily Synthroid and Cytomel. She reports no chest pain, shortness of breath, or bowel issues, and no presence of blood in her stool. Her sleep is generally satisfactory. She has undergone MRI scans of her neck and thoracic back. She has been diagnosed with urinary retention and incontinence, for which she has received Botox treatments on her bladder. She also has IBS with constipation, which has improved recently due to dietary changes and increased exercise. She takes vitamin D3 and calcium with vitamin D, as well as iron supplements due to low iron levels detected in her last lab results. She has been on disability forabout 8 years. She tested negative for sleep apnea. She follows with Dr. Dove, Dr. Ozuna, and the pain clinic for her back pain. She is receiving injections and ablations and is considering a possible stimulator. She also sees a podiatric foot and ankle specialist at [facility]. She sees Radha Mcintosh for her anxiety and depression. She sees Oneyda Mcintosh, a chiropractor. She goes to the eye doctor and the dentist. SOCIAL HISTORY She has 4 children and 3 grandchildren. I have reviewed and reconciled the history and medication list with the patient today. HISTORIES: PAST MEDICAL HISTORY: Past Medical History: Diagnosis Date Depression (CMS/HCC) Disease of thyroid gland (CMS/HCC) Fibromyalgia SANDRA (generalized anxiety disorder) (CMS/HCC) Hypertension (CMS/HCC) Hypothyroidism (acquired) (CMS/HCC) Mixed stress and urge urinary incontinence Urinary retention SURGICAL HISTORY: Past Surgical History: Procedure Laterality [...] Drug use: Yes Types: Marijuana Depression: Not on file FAMILY HISTORY: Family History Problem Relation Name Age of Onset Diabetes type II Mother Hypertension Mother Heart disease Brother Mental illness Son Lymphoma Maternal Grandmother Breast cancer Paternal Grandmother MEDICATIONS: Current Outpatient Medications Medication Instructions B Vbvzigu-Wiwfhx-EY (Super Quints B-50) tablet Oral Calcium Carb-Cholecalciferol (CALCIUM 600 + D PO) Oral cholecalciferol (Vitamin D-3) 50 MCG (1999 UT) capsule 1 capsule, Oral, Daily RT COLLAGEN PO Oral dilTIAZem XR (DILACOR XR) 240 mg, Oral, Daily escitalopram (Lexapro) 10 MG tablet 1 tablet, Oral, Daily RT ferrous sulfate 325 mg, Oral, Daily with breakfast levothyroxine (SYNTHROID, LEVOXYL) 112 mcg, Oral, Daily before breakfast liothyronine (CYTOMEL) 5 mcg, Oral, Daily RT lubiprostone (AMITIZA) 24 mcg, Oral, Daily PRN magnesium oxide (MAG-OX) 400 mg, Oral, 2 times daily melatonin 10 MG tablet Oral metroNIDAZOLE (Metrogel) 1 % gel Topical Multiple Vitamin (Multi Vitamin Daily) tablet Oral propranolol (INDERAL) 20 mg, Oral, 2 times daily saccharomyces boulardii (FLORASTOR) 250 mg, Oral, Daily in the morning Turmeric (QC TUMERIC COMPLEX PO) Oral ALLERGIES: No Known Allergies PHYSICAL EXAM: Visit Vitals BP 138/82 (BP Location: Left arm, Patient Position: Sitting) Pulse 64 Ht 5' 7 Wt 278 lb SpO2 95% BMI 43.54 kg/m Smoking Status Every Day BSA 2.44 m BP Readings from Last 3 Encounters: 01/24/24 138/82 12/31/21 126/82 11/20/19 128/68 Wt Readings from Last 3 Encounters: 01/24/24 278 lb 12/31/21 258 lb 03/06/20 (!) 301 lb Physical Exam Constitutional: Appearance: She is obese. HENT: Right Ear: Tympanic membrane and external ear normal. Left Ear: Tympanic membrane and external ear normal. Mouth/Throat: Mouth: Mucous membranes are moist. Neck: Thyroid: No thyroid mass or thyromegaly. Vascular: No carotid bruit. Cardiovascular: Rate and Rhythm: Normal rate and regular rhythm. Heart sounds: No murmur heard. No friction rub. No gallop. Pulmonary: Effort: Pulmonary effort is normal. Breath sounds: Normal breath sounds. Abdominal: General: Bowel sounds are normal. Palpations: Abdomen is soft. Tenderness: There is no abdominal tenderness. Musculoskeletal: Right lower leg: No edema. Left lower leg: No edema. Lymphadenopathy: Cervical: No cervical adenopathy. Skin: General: Skin is warm and dry. Neurological: Mental Status: She is alert and oriented to person, place, and time. Psychiatric: Mood and Affect: Mood normal. Thought Content: Thought content normal. Results Laboratory Studies Vitamin D was 32. Potassium was 3.6. Iron was low. Imaging MRI of thoracic spine showed a protruding disc, a disc bulge, and some mild narrowing. ASSESSMENT AND PLAN: Assessment & Plan 1. Essential hypertension (CMS/HCC) Doing well. Blood pressures have been good. Continue lifestyle modifications. Continue current medication. Call if any problems or if home blood pressures rising. - Comprehensive metabolic panel; Future - Lipid panel; Future - Microalbumin / creatinine urine ratio; Future - Urinalysis with microscopic; Future - Comprehensive metabolic panel - Lipid panel - Microalbumin / creatinine urine ratio - Urinalysis with microscopic 2. Moderate major depression ([facility]) Doing well. Continue current regimen. 3. SANDRA (generalized anxiety disorder) ([facility]) Doing well. Continue current regimen. 4. Primary osteoarthritis involving multiple joints She weaned off opioids and is using CBD/THC gummies. 5. Fibromyalgia She had workup with Rheumatology in the past which was unremarkable according to pt. She no longer follows with Rheum. 6. Acquired hypothyroidism ([facility]) Stable in June. Will recheck soon. - TSH; Future - TSH 7. Irritable bowel syndrome with constipation Stable. Continue current regimen. 8. Mixed stress and urge urinary incontinence She follows with Dr Ozuna and has had Botox in the past which she felt was helpful. 9. Urinary retention As above. 10. Vitamin D deficiency She is taking Vitamin D supplement. 11. History of anemia Will check labs soon. She had EGD and Colonoscopy, will obtain results. - CBC and differential; Future - Iron and TIBC; Future - Ferritin; Future - CBC and differential - Iron and TIBC - Ferritin 12. Chronic bilateral thoracic back pain She had thoracic MRI which I reviewed on her phone. She continues to follow with pain management for injections/ablations/possible stimulator. 13. Prediabetes Glucose was elevated in April at 105. - Semaglutide,0.25 or 0.5MG/DOS, (Ozempic, 0.25 or 0.5 MG/DOSE,) 2 MG/3ML solution pen-injector; Inject 0.25 mg under the skin 1 (one) time per week for 28 days, THEN 0.5 mg 1 (one) time per week for14 days. Dispense: 3 mL; Refill: 0 14. Class 3 severe obesity due to excess calories with serious comorbidity and body mass index (BMI) of 40.0 to 44.9 in adult ([facility]) Discussion about weight loss options. She is reluctant to take Adipex. She is interested in injectable and discussed Buderer drug vs sending into local pharmacy. Discussed it is unlikely this will becovered and if not we can use Buderer. Encouraged to keep eating healthy and exercising regularly. - Semaglutide,0.25 or 0.5MG/DOS, (Ozempic, 0.25 or 0.5 MG/DOSE,) 2 MG/3ML solution pen-injector; Inject 0.25 mg under the skin 1 (one) time per week for 28 days, THEN 0.5 mg 1 (one) time per week for14 days. Dispense: 3 mL; Refill: 0 15. BMI 40.0-44.9, adult (CMS/HCC) As above. Patient was seen and examined with Dalia Dennis CNP. History was confirmed and verified. Lucia elements of the exam were also completed. Assessment and plan were reviewed and addended as needed. Agree with documentation above. documented in this encounterCenterPointe [id number] Evaluation note* Encounter Date Diagnosis Assessment Notes Treatment Notes Treatment Clinical Notes Jun, Cough (ICD-10 - R05.9) Jun, COVID (ICD-10 - U07.1) Rest. Drink plenty of fluids. Take skvj-ygb-hfndngn Tylenol or Motrin as needed for fever or discomfort. May continue to take fyju-pfm-safukwh cold and flu medicine for symptom management of your COVID as needed, but you will need to follow the instructions on the box. May take xkci-gfo-dklntcx Delsym or Robitussin for cough. Take the [...] to rest, drink plenty of fluids, take tetm-dub-nlbhqer Tylenol or Motrin as needed for fever or discomfort and may take ptcu-wnf-mlfepos cold and flu medicine for symptom management of with COVID. Patient was told she can take rgbr-qtr-vuhnfit cough medicine for her cough. She is to follow-up with her primary care provider if symptoms persist or go to the ER if symptoms worsen including chest pain shortness of breath difficulty breathing pain with deep breathing. Patient is agreeable to treatment plan. Jun, Sore throat (ICD-10 - J02.9) Jun, Acute streptococcal pharyngitis (ICD-10 - J02.0) [employer] Other 02-09-2024 Miscellaneous Notes* Telephone Encounter - Stephie Brambila MD - 07/08/2023 11:04 AM EST Called patient patient to discuss lab results. MARCIO panel, dsDNA, C3, C4 were normal. No major abnormalities with other labs. At this time, no signs of rheumatologic autoimmune disease. Discussed Dermatology evaluation for rash and hair loss. Stephie Brambila MD [facility] this [facility] NoteHNO ID: [id number] Author: STEPHIE BRAMBILA MD Service: ? Author Type: Physician Type: Progress Notes Filed: 06/26/2023 14:11 Note Text: Rheumatology Clinic Date of Service: 05/24/2023 Patient: Lupe Pickard Medical Record: [id number] Last Rheumatology visit: 05/24/2023 (with Stephie Brambila) [...] uses heat/ice, massage which helps. She takes [place] 5mg that does not do much for [...] 10 years. 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 Family History: No known FH of autoimmune [...] by mouth. CALCIUM CARBONATE (more content not included)...[facility] 05-17-2023 NoteHNO ID: [id number] Author: Stephie Brambila MD Service: ? Author Type: Physician Type: Progress Notes Filed: 05/17/2023 2:50 PM Note Text: Rheumatology Clinic Date of Service: 05/17/2023 Patient: Lupe Pickard Medical Record: [id number] Last Rheumatology visit: [facility] History of Present Illness Lupe Pickard is [...] uses heat/ice, massage which helps. She takes Raleigh 5mg that does not do much for [...] 10 years. 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 Family History: No known FH of autoimmune [...] by mouth. CALCIUM CARBONATE/VITAMIN (more content not included)...[facility]10[facility]* Encounter Date Diagnosis Assessment Notes Treatment Notes Treatment Clinical Notes Feb, Rash and nonspecific skin eruption (ICD-10 - R21) Likely rash is related to monitor adhesive, although iron cannot be fully excluded. Stop iron. Consult prescribing physician tomorrow about iron supplementation and follow thheir plan of care. Continue with heart monitor and call podiatric foot and ankle specialist office tomorrow morning for guidance as she [...] Pt understood and agreed to treatment plan. [employer] Other 09-21-2023 Evaluation note* Encounter Date Diagnosis [...] Jan, Blood in stool (ICD-10 - K92.1) [employer] Other 04-06-2023 History of Present illness Narrative* Javad Leach [...] Risk protocol implemented: No documented in this [id number] History of Present illness Narrative* Javad Leach [...] Risk protocol implemented: No documented in this [id number] Evaluation note* Encounter Date Diagnosis Assessment Notes Treatment Notes Treatment Clinical Notes Aug, Irritable bowel syndrome with constipation (ICD-10 - K58.1) Start Amitiza 24mcg twice daily. Start Miralax in addition to Amitiza. Titrate dose as needed. Referral to CC for rectal manometry [employer] Other 03-01-2023 History of Present illness Narrative* [...] the need arise -[facility] [address] DO Work Phone: 1(401) 558-600102-16-2023 NoteCONSULTATION CONSULTATION DATE: 07/15/2022 HISTORY OF PRESENT ILLNESS: This is a 47-year-old female who returns to the clinic for a three month follow up for her chronic mid back pain and lower back pain. She was last seen on 04/15/2022 and, at that time, she received a referral to Dr. Bradley Leach at [facility]. She was having increased thoracic [...] Bradley Leach at his new location at [facility] in [place]. Refills for baclofen and tramadol at the set dose and frequency will be sent to her pharmacy. We will furnish a letter to her PCP, at the patient's request, to take over her tramadol prescription. She will be followed up in the office post procedure.[id number] Note CONSULTATION PROCEDURE DATE: 07/29/2022 PREOPERATIVE DIAGNOSIS: [...] will be followed up in the office.[facility] [id number] Evaluation note* Encounter Date Diagnosis Assessment Notes Treatment Notes Treatment Clinical Notes Apr, Irritable bowel syndrome with constipation (ICD-10 - K58.1) Stop Amitiza Start Trualcne 3mg daily Follow up in 3-4 months [employer] Other 11-30-2022 Evaluation note* Encounter Date Diagnosis [...] (ICD-10 - J02.9) strep neg, see above. [employer] Other 11-17-2022 NoteCONSULTATION CONSULTATION DATE: 04/15/2022 HISTORY [...] send a referral to spine surgeon in [place], Dr. Bradley Leach. Patient is in agreement to this, and we will follow her up at our clinic in three months' time.[facility] [id number] NoteCONSULTATION CONSULTATION DATE: 01/06/2022 This is a [...] to initial consultation and prefers this at [facility]. We will see the patient in three months' time unless otherwise indicated.[facility] [id number] NoteCONSULTATION PROCEDURE DATE: 01/06/2022 PRE AND POSTOPERATIVE [...] will be followed up in the office.[facility] 11-12-2021 NoteCONSULTATION CONSULTATION DATE: 11/12/2021 HISTORY OF [...] Patient agrees with the plan of care. [facility] Signed and Approved by: BHAVNA MARR . 11/25/2021 16:24:00[facility] noteNo assessment information [facility] Work Phone: Evaluation noteNo InformationNort [employer] Other Evaluation note* Diagnosis Cervical spondylosis with [...] Diagnosis Onset Date Resolution Status Abdominal pain [facility] Work Phone: Evaluation note* Diagnosis Onset Date Resolution Status Rotator cuff syndrome of right shoulder acute [place] Work Phone: Evaluation note* Diagnosis Onset Date Resolution Status Rotator cuff syndrome of right shoulder acute Sinusitis, acute maxillary n oneactive Bronchitis noneactive [place] Work Phone: Evaluation note* Diagnosis Onset Date Resolution Status Sinusitis, acute maxillary n oneactive Bronchitis noneactive [facility] Work Phone: Evaluation note* Diagnosis Postoperative hypothyroidism ([facility])- Primary Postsurgical hypothyroidism Encounter for dietary consultation Vitamin D deficiency Class 3 severe obesity without serious comorbidity with body mass index (BMI) of 40.0 to 44.9 in adult, unspecified obesity type ([facility]) documented in this encounter [facility]* Diagnosis Bursitis of other bursa of right hip- Primary documented in this encounter [facility]* Diagnosis Bursitis of other bursa of right hip documented in this encounter [facility]* Diagnosis Essential hypertension ([facility])- Primary Unspecified essential hypertension Moderate major depression ([facility]) Major depressive disorder, single episode, moderate SANDRA (generalized anxiety disorder) ([facility]) Generalized anxiety disorder Primary osteoarthritis involving multiple joints Fibromyalgia Unspecified myalgia and myositis Acquired hypothyroidism ([facility]) Unspecified hypothyroidism Irritable bowel syndrome with constipation Irritable bowel syndrome Mixed stress and urge urinary incontinence Mixed incontinence urge and stress (male)(female) Urinary retention Unspecified retention of urine Vitamin D deficiency History of anemia Personal history of diseases of blood and blood-forming organs Chronic bilateral thoracic back pain Prediabetes Other abnormal glucose Class 3 severe obesity due to excess calories with serious comorbidity and body mass index (BMI) of 40.0 to 44.9 in adult ([facility]) BMI 40.0-44.9, adult ([facility]) documented in this encounter [facility]* Diagnosis Lower extremity edema- Primary Edema SOB (shortness of breath) on exertion Shortness of breath Bilateral leg edema Edema Rosacea documented in this encounter [facility]* Diagnosis Acute vaginitis- Primary Unspecified vaginitis and vulvovaginitis documented in this encounter [facility]* Diagnosis Bilateral lower extremity edema- Primary Essential hypertension Unspecified essential hypertension Pulmonary hypertension (HCC) Other chronic pulmonary heart diseases Cellulitis of right lower extremity Snoring Other dyspnea and respiratory abnormality documented in this encounter [facility] Healthcare[facility]* Diagnosis Onset Date Resolution Status Admit Date Acquired hypothyroidism acute J marlys 2024 9:36am Anxiety and depression acute Ju ly 2024 9:36am Chronic back pain acute November 9:36am Insomnia acute November 29, 2024 9:36am Sleep apnea acute November 29 9:36am [place] Work Phone: Evaluation note* Diagnosis Bilateral lower extremity edema- Primary Pulmonary hypertension (HCC) Other chronic pulmonary heart diseases Dyspnea, unspecified type Snoring Other dyspnea and respiratory abnormality Anasarca Edema Essential hypertension Unspecified essential hypertension History of anemia Personal history of diseases of blood and blood-forming organs Hypoalbuminemia Other disorders of plasma protein metabolism Hypoproteinemia (HCC) Other disorders of plasma protein metabolism documented in this encounter [facility]* Diagnosis Bilateral lower extremity edema- Primary Pulmonary hypertension (HCC) Other chronic pulmonary heart diseases Dyspnea, unspecified type Essential hypertension Unspecified essential hypertension Medicare annual wellness visit, subsequent ACP (advance care planning) Other specified counseling Obstructive sleep apnea syndrome Obstructive sleep apnea (adult) (pediatric) Pain of upper abdomen [facility] - [facility]* Type Description Date Medical History Fibromyalgia Medical History arthritis in knees Medical History bursitis in hips Medical History Arthritis in lower back Medical History IBS Medical History depression Medical History anxiety Medical History Graves disease Medical History S/P Thyroidectomy Surgical History x 4 Surgical History hysterectomy Surgical History Thyroidectomy 06/2018 Hospitalization History childbirth Hospitalization History see surgery [employer] Other History general Narrative - Reported* Type [...] 06/2018 Hospitalization History childbirth Hospitalization History see [employer] Other History of Present illness Narrative* Patient [...] months or earlier if the need arise [facility] Work Phone: History of Present [...] months or earlier if the need arise [facility] Work Phone: Hospital Discharge instructions Additional Instructions Follow up with your primary care doctor Continue to take your tramadol as needed for pain Return to the ED if you develop worsening [facility] Work Phone: Hospital Discharge instructions Additional Instructions [...] your primary care doctor and with your podiatric foot and ankle specialist as planned.[facility] Work Phone: Hospital Discharge instructions Additional Instructions You can take Naprosyn and Tylenol as needed for your eye pain. Follow-up for your stress test and continue to take your antihypertensive medication as prescribed. Follow-up with your PCP for ongoing treatment of your high blood pressure. Follow-up with the eye doctor listed below regarding your left eye pain.[facility] Work Phone: Hospital Discharge instructions Additional Instructions [...] me in 6-8 weeks. Low FODMAP diet PrePay 1 p.o. every morning -Notify the doctor if you have any problems. -Office number [phone] [facility] Work Phone: Reason for referral (narrative)No reason for referral information availableK[facility]tering Health [facility] Work Phone: Chief Complaint and Reason for [...] Sinusitis, acute max illary Bronchitis Chief Complaint Admit Date sore throat, congestion, cough May 14, 2024 1:54pm [id number] June 18, 2024 1 2:40pm Reason for Visit Admit Date Acute bacterial sinusitis May 14, 2024 1:54pm Acute bronchitis May 14, 2024 1:54pm Chief Complaint Admit Date sore throat, congestion, cough May 14, 2024 1:54pm m48.062 June 18, 2024 1 2:40pm OP SP RT SHOULDER PAIN July 19 2:50pm Reason for Visit Admit Date Acute bacterial sinusitis May 14, 2024 1:54pm Acute bronchitis May 14, 2024 1:54pm Rotator cuff syndrome of right shoulder July 19, 2024 2:50pm Chief Complaint Admit Date sore throat, congestion, cough May 14, 2024 1:54pm m48.062 June 18, 2024 1 2:40pm OP SP RT SHOULDER PAIN July 19 2:50pm d50.8 i10 z78.0 e55.9 August 03, 2024 7: 49am Chief Complaint Admit Date m48.062 June 18, 2024 1 2:40pm OP SP RT SHOULDER PAIN July 19 2:50pm d50.8 i10 z78.0 e55.9 August 03, 2024 7: 49am R Rotator cuff syndrome August 06, 2024 10:45am r79.89 August 29, 2024 8:08 am Reason for Visit Admit Date Rotator cuff syndrome of right shoulder July 19, 2024 2:50pm Chief Complaint Admit Date OP SP RT SHOULDER PAIN July 19 2:50pm d50.8 i10 z78.0 e55.9 August 03, 2024 7: 49am r79.89 August 29, 2024 8:08 am R Rotator cuff syndrome September 03, 2024 1:00pm r06.02 r60.0 October 09, 2024 11:11 am Chief Complaint Admit Date d50.8 i10 z78.0 e55.9 August 03, 2024 7: 49am r79.89 August 29, 2024 8:08 am R Rotator cuff syndrome September 03, 2024 1:00pm r06.02 r60.0 October 09, 2024 11:11 am Abnormal cortisol levels October 25, 2024 7:52am Chief Complaint Admit Date r79.89 August 29, 2024 8:08 am R Rotator cuff syndrome September 03, 2024 1:00pm r06.02 r60.0 October 09, 2024 11:11 am Abnormal cortisol levels October 25, 2024 7:52am r60.0 R06.02 November 09, 2024 8:33 am R60.0 November 21, 2024 11:2 4am Chief Complaint Admit Date R Rotator cuff syndrome September 03, 2024 1:00pm r06.02 r60.0 October 09, 2024 11:11 am Abnormal cortisol levels October 25, 2024 7:52am r60.0 R06.02 November 09, 2024 8:33 am R60.0 November 21, 2024 11:2 4am E89.0 R79.89 November 27, 2024 12:54 pm Chief Complaint Admit Date R Rotator cuff syndrome September 03, 2024 1:00pm r06.02 r60.0 October 09, 2024 11:11 am Abnormal cortisol levels October 25, 2024 7:52am r60.0 R06.02 November 09, 2024 8:33 am R60.0 November 21, 2024 11:2 4am E89.0 R79.89 November 27, 2024 12:54 pm Snoring November 29, 2024 9:36a m Reason for Visit Admit Date Acquired hypothyroidism November 29, 2024 9 :36am Anxiety and depression November 29, 2024 9: 36am Chronic back pain November 29, 2024 9:36a m Insomnia November 29, 2024 9:36a m Sleep apnea November 29, 2024 9:36a m Chief Complaint Admit Date R Rotator cuff syndrome September 03, 2024 1:00pm r06.02 r60.0 October 09, 2024 11:11 am Abnormal cortisol levels October 25, 2024 7:52am r60.0 R06.02 November 09, 2024 8:33 am R60.0 November 21, 2024 11:2 4am E89.0 R79.89 November 27, 2024 12:54 pm Snoring November 29, 2024 9:36a m m54.30 November 29, 2024 10:35 am Reason for Visit Admit Date Acquired hypothyroidism November 29, 2024 9 :36am Anxiety and depression November 29, 2024 9: 36am Chronic back pain November 29, 2024 9:36a m Insomnia November 29, 2024 9:36a m Pulmonary hypertension November 29, 2024 9: 36am Sleep apnea November 29, 2024 9:36a m Sleep related hypoxia November 29, 2024 9:3 6am Chief Complaint Admit Date r06.02 r60.0 October 09, 2024 11:11 am Abnormal cortisol levels October 25, 2024 7:52am r60.0 R06.02 November 09, 2024 8:33 am R60.0 November 21, 2024 11:2 4am E89.0 R79.89 November 27, 2024 12:54 pm Snoring November 29, 2024 9:36a m m54.30 November 29, 2024 10:35 am R60.0 I27.20 R06.00 R06.83 R60.1 I10 Z86 .2 December 07, 2024 9:37am Advance Directives No Advanced Directives Records Found [...] Referral Specialty Diagnoses / Procedures Referred By Contac t Referred To Contact Radiology Diagnoses Thoracic spine pain Procedures CT T-SPINE W/O CONTRAST Javad Leach MD [address] [place] [address] SCAN Referral ID Status Reason Start Date Expiration Date V isits Requested Visits Authorized [id number] Authorized 09/06/2022 09/06/2023 1 1 Specialty Diagnoses / Procedures Referred By Contac t Referred To Contact Radiology Diagnoses Cervical spondylosis with myelopathy Procedures DOWNLOAD POWERSHARE IMAGES TO EPIC Javad Leach MD [address] [place] [address] S DIAGNOSTIC RADIOLOGY [address] [place] [address] Referral ID Status Reason Start Date Expiration Date V isits Requested Visits Authorized [id number] Authorized 08/24/2022 08/24/2023 1 1 Summary Purpose Additional Source Comments Source Comments (unrecognize d section and content) In the event this informatio n is protected by the Federal Confidentiality of Alcohol and Drug Abuse Patient Records regulations: The Federal rules restrict any use of the information to criminally investigate or prosecute any alcohol or drug abuse patient.[facility] NorthIn the event this information is protected by the Federal Confidentiality of Alcohol and Drug Abuse Patient Records regulations: The Federal rules restrict any use of the information to criminally investigate or prosecute any alcohol or drug abuse patient.[facility] REASON FOR VISIT (unrecogniz ed section and content) Reason Comments New patient, to establish relationship B ack pain Specialty Diagnoses / Procedures Referred By Contac t Referred To Contact Neurosurgery Diagnoses Protrusion of thoracic intervertebral disc Thoracic radiculitis Ernie Roper [address] [place] [address] [facility] NEUROSURGERY [address] [place] [address] Referral ID Status Reason Start Date Expiration Date V isits Requested Visits Authorized [id number] Authorized 07/22/2022 07/22/2023 3 3 Specialty Diagnoses / Procedures Referred By Contac t Referred To Contact Radiology Diagnoses Thoracic spine pain Procedures CT NEURO IMAGE IMPORT(KYLE) DOWNLOAD POWERSHARE IMAGES TO Javad Leach MD [address] [place] [address] [facility] DIAGNOSTIC RADIOLOGY [address] [place] [address] Referral ID Status Reason Start Date Expiration Date Visits Re quested Visits Authorized [id number] Closed 09/30/2022 09/30/2023 1 1 Reason Comments Thyroid Problem Follow-up Reason Comments Bursitis Reason Onset Date Comments Med Refill 05/07/2024 Reason Comments Establish Care Reason Comments Edema Patient is here toda y with complaints of bilateral lower extremity edema x 1 month. Swelling is constant and worsens throughout the day. Rt foot pain. Intermittent SOB with exertion. Denies chest pain. Weight gain 05 25 pounds since 08/14 OV Reason Comments bilateral leg swelling and pain Reason Comments Edema Office visit with Gi na on 11/21 for bilateral lower extremity edema and cellulitis rt lower extremity. She was advised by podiatric foot and ankle specialist to stop Lasix and she was prescribed Losartan hydrochlorothiazide 100/12.5 mg every day. Bilateral edema and pain continue. SOB with exertion has worsened within the last couple days. Reason Comments Review lab Review lab drawn 03/2025 Medicare Annual Wellness Visit Subsequen t Care Teams (unrecognized sec tion and content) [...] Active Team Status: Inactive Member Role Status Donya Billings , DO Primary Care Provider [...] Status: Active Member Role Status Dates Melissa Hugo Singh II, DO Primary Care Provider Active Team Status: Inactive Member Role Status Dates Melissa Singh II, DO Primary Care Provider Active Mariya Kumari , DO Emergency Provider Active Team Status: Inactive Member Role Status Dates Melissa Singh II, DO Primary Care Provider Active Franklyn Herman MD Attending Provider Active Phillip Benjamin MD Other Provider Active Team Status: Inactive Member Role Status Dates Melissa Hugo Singh II, DO Primary Care Provider Active Yogi Michaels , DO Emergency Provider Active Team Status: Inactive Member Role Status Dates Melissa Singh II, DO Primary Care Provider Active Kenyetta Dove MD Attending Provider Active Team Status: Inactive Member Role Status Dates Melissa Singh II, DO Primary Care Provider, Other P rovider Active Radha Mcintosh NP-C Attending Provider Active Team Status: Inactive Member Role Status Dates Melissa Singh II, DO Primary Care Provider Active Beny Hoskins MD Attending Provider Active Zoya Aguirre APRN [employer] DIP WORKER-C Other Provider Act cecelia Lawn Caretaker Relationship Specialty Start Date End Date Donya BillingsDO Referring Family Medicine 11/22/22 Team Status: Inactive Member Role Status Dates Melissa Singh II, Primary Care Provider Active Start: July 22, 2023 End: July 22, 2023 Jorge Jarrett , Emergency Provider Active St art: July 22, 2023 End: July 22, 2023 Team Status: Inactive Member Role Status Dates Melissa Signh II, DO Primary Care Pro vider, Attending Provider Active Start: July 28, 2023 End: July 28, 2023 Team Status: Inactive Member Role Status Dates Melissa Singh II, Primary Care Provider Active Start: August 16, [...] 2023 End: October 03, 2023 Chaz Carrillo DO Attending Provider Active St art: October [...] 2024 Referral Self Attending Provider Active Start: A ugust 2023 End: January 20, 2024 Team Status: Active Member Role Status Dates Melissa Coon MD Primary Care Provider Active Team Status: Inactive Member Role Status Dates Melissa Coon MD Primary Care Provider Active St art: February 01, 2024 End: February 01, 2024 Dalia Dennis NP-C Attending Provider Active S tart: February 01, 2024 End: February 01, 2024 Team Status: Inactive Member Role Status Dates Melissa Coon MD Primary Care Provider Active St art: February 21, 2024 End: February 21, 2024 Kenyetta Dove MD Attending Provider Active Sta rt: February 21, 2024 End: February 21, 2024 Lawn Caretaker Relationship Specialty Start Date End Date Melissa Coon MD [address] [place] [address] PCP - General Internal Medicine 01/24/24 Lawn Caretaker Relationship Specialty Start Date End Date Melissa Coon MD [address] [place] [address] PCP - General Internal Medicine 01/24/24 Lawn Caretaker Relationship Specialty Start Date End Date Melissa Coon MD [address] [place] [address] PCP - General Internal Medicine 01/24/24 Lawn Caretaker Relationship Specialty Start Date End Date Melissa Coon MD [address] [place] [address] PCP - General Internal Medicine 01/24/24 Lawn Caretaker Relationship Specialty Start Date End Date Meilssa Coon MD [address] [place] [address] PCP - General Internal Medicine 01/24/24 Lawn Caretaker Relationship Specialty Start Date End Date Melissa Coon MD [address] [place] [address] PCP - General Internal Medicine 01/24/24 Lawn Caretaker Relationship Specialty Start Date End Date Melissa Coon MD [address] [place] [address] PCP - General Internal Medicine 01/24/24 Team Status: Inactive Member Role Status Pina Coon MD Primary Care Provider Active St art: May 14, 2024 End: May 14, 2024 Selina Lomas APRN Attending Provider Active Sta rt: May 14, 2024 End: May 14, 2024 Team Status: Inactive Member Role Status Pina Coon MD Primary Care Provider Active St art: June 18, 2024 End: June 18, 2024 Willian Jensen MD Attending Provider Active Start: June 18, 2024 End: June 18, 2024 Team Status: Inactive Member Role Status Pina Coon MD Primary Care Provider Active St art: July 19, 2024 End: July 19, 2024 Chaz Carrillo DO Attending Provider Active St art: July 19, 2024 End: July 19, 2024 Team Status: Active Member Role Status Pina Coon MD Primary Care Provider Active St art: July 14, 2024 Swapnil Matute DO Attending Provider Active Sta rt: July 14, 2024 Team Status: Inactive Member Role Status Pina Coon MD Primary Care Provide r, Attending Provider Active Start: August 03, 2024 End: August 03, 2024 Team Status: Active Member Role Status Pina Coon MD Primary Care Provider Active St art: August 06, 2024 Chaz Carrillo DO Attending Provider Active St art: August 06, 2024 Team Status: Inactive Member Role Status Pina Coon MD Primary Care Provider Active St art: August 29, 2024 End: August 29, 2024 Kenyetta Dove MD Attending Provider Active Sta rt: August 29, 2024 End: August 29, 2024 Lawn Caretaker Relationship Specialty Start Date End Date Melissa Coon MD [address] [place] [address] PCP - General Internal Medicine 01/24/24 Kenyetta Dove MD [address] [place] [address] Referring Physician Endocrinology 08/01/24 Donya Ozuna MD [address] [place] [address] Referring Physician Urology 08/01/24 Amanda Montiel MD [address] [place] [address] Obstetrics and Gynecology 08/01/24 Krish Hodge MD [address] [facility] [place] [address] Referring Physician Ophthalmology 08/01/24 Beny Hoskins MD [address] [place] [address] [address] [place] [address] Referring Physician Gastroenterology 08/01/24 [facility] Mental Health 08/01/24 Team Status: Active Member Role Status Dates Melissa Coon MD Primary Care Provider Active St art: September 03, 2024 Chaz Carrillo DO Attending Provider Active St art: September 03, 2024 Team Status: Inactive Member Role Status Dates Melissa Coon MD Primary Care Provider Active art: October 09, 2024 End: October 09, 2024 Tanner Menendez PA-C Attending Provider Active Start: October 09, 2024 End: October 09, 2024 Lawn Caretaker Relationship Specialty Start Date End Date Melissa Coon MD [address] [place] [address] PCP - General Internal Medicine 01/24/24 Kenyetta Dove MD [address] [place] [address] Referring Physician Endocrinology 08/01/24 Donya Ozuna MD [address] [place] [address] Referring Physician Urology 08/01/24 Amanda Montiel MD [address] [place] [address] Obstetrics and Gynecology 08/01/24 Krish Hodge MD [address] [facility] [place] [address] Referring Physician Ophthalmology 08/01/24 Beny Hoskins MD [address] [place] [address] [address] [place] [address] Referring Physician Gastroenterology 08/01/24 [facility] 08/01/24 Team Status: Inactive Member Role Status Dates Melissa Coon MD Primary Care Provider Active St art: October 25, 2024 End: October 25, 2024 Kenyetta Dove MD Attending Provider, Referring Provider Active Start: October 25, 2024 End: October 25, 2024 Lawn Caretaker Relationship Specialty Start Date End Date Melissa Coon MD [address] [facility] [address] [place] [address] PCP - General Internal Medicine 01/24/24 Kenyetta Dove MD [address] [place] [address] Referring Physician Endocrinology 08/01/24 Donya Ozuna MD [address] [place] [address] Referring Physician Urology 08/01/24 Amanda Montiel MD [address] [place] [address] Obstetrics and Gynecology 08/01/24 Krish Hodge MD [address] [place] [address] Referring Physician Ophthalmology 08/01/24 Beny Hoskins MD [address] [facility] [address] [place] [address] Referring Physician Gastroenterology 08/01/24 [facility] 08/01/24 Team Status: Inactive Member Role Status Pina Coon MD Primary Care Provider Active St art: October 25, 2024 End: October 25, 2024 Kenyetta Dove MD Attending Provider Active Sta rt: October 25, 2024 End: October 25, 2024 Kenyetta Dove MD Referring Provider Active Sta rt: October 25, 2024 End: October 25, 2024 Team Status: Inactive Member Role Status Pina Coon MD Primary Care Provider Active St art: November 09, 2024 End: November 09, 2024 Tanner Menendez PA-C Attending Provider Active Start: November 09, 2024 End: November 09, 2024 Team Status: Inactive Member Role Status Pina Coon MD Primary Care Provider Active St art: November 21, 2024 End: November 21, 2024 Dalia Dennis NP-C Attending Provider Active S tart: November 21, 2024 End: November 21, 2024 Team Status: Inactive Member Role Status Pina Coon MD Primary Care Provider Active St art: September 03, 2024 End: September 03, 2024 Chaz Carrillo DO Attending Provider Active St art: September 03, 2024 End: September 03, 2024 Team Status: Inactive Member Role Status Pina Coon MD Primary Care Provider Active St art: November 27, 2024 End: November 27, 2024 Kenyetta Dove MD Attending Provider Active Sta rt: November 27, 2024 End: November 27, 2024 Team Status: Inactive Member Role Status Dates Melissa Coon MD Primary Care Provider Active St art: November 29, 2024 End: November 29, 2024 Robbie Dale MD Attending Provider Active S tart: November 29, 2024 End: November 29, 2024 Team Status: Inactive Member Role Status Dates Melissa Coon MD Primary Care Provider Active St art: November 29, 2024 End: November 29, 2024 Dalia Dennis , DRY DIP WORKER-C Attending Provider Active S tart: November 29, 2024 End: November 29, 2024 Lawn Caretaker Relationship Specialty Start Date End Date Melissa Coon MD [address] [place] [address] PCP - General Internal Medicine 01/24/24 Kenyetta Dove MD [address] [facility] [place] [address] Referring Physician Endocrinology 08/01/24 Donya Ozuna MD [address] [facility] [place] [address] Referring Physician Urology 08/01/24 Amanda Montiel MD [address] [facility] [address] [place] [address] Obstetrics and Gynecology 08/01/24 Krish Hodge MD [address] [place] [address] Referring Physician Ophthalmology 08/01/24 Beny Hoskins MD [address] [place] [address] [address] [place] [address] Referring Physician Gastroenterology 08/01/24 [facility] 08/01/24 Lawn Caretaker Relationship Specialty Start Date End Date Melissa Coon MD [address] [place] [address] PCP - General Internal Medicine 01/24/24 Kenyetta Dove MD [address] [place] [address] Referring Physician Endocrinology 08/01/24 Donya Ozuna MD [address] [place] [address] Referring Physician Urology 08/01/24 Amanda Montiel MD [address] [place] [address] Obstetrics and Gynecology 08/01/24 [place] [address] [place] [address] Referring Physician Ophthalmology 08/01/24 Beny Hoskins MD [address] [place] [address] [address] [place] [address] Referring Physician Gastroenterology 08/01/24 [facility] 08/01/24 Lawn Caretaker Relationship Specialty Start Date End Date Melissa Coon MD [address] [place] [address] PCP - General Internal Medicine 01/24/24 Kenyetta Dove MD [address] [place] [address] Referring Physician Endocrinology 08/01/24 Donya Ozuna MD [address] [place] [address] Referring Physician Urology 08/01/24 Amanda Montiel MD [address] [place] [address] Obstetrics and Gynecology 08/01/24 Krish Hodge MD [address] [place] [address] Referring Physician Ophthalmology 08/01/24 Beny Hoskins MD [address] [place] [address] [address] [place] [address] Referring Physician Gastroenterology 08/01/24 [facility] 08/01/24 Team Status: Inactive Member Role Status Dates Melissa Coon MD Primary Care Provider Active St art: December 07, 2024 End: December 07, 2024 Omid Quan RN MSN ANP-C Attending Provider Act cecelia Start: December 07, 2024 End: December 07, 2024 Goals (unrecognized section and content) Goals may be documented in a n alternate section INFORMATION SOURCE (unrecogn ized section and content) DATE CREATED AUTHOR 10/04/2022 [employer] [facility] DATE CREATED AUTHOR AUTHOR'S ORGANIZ ATION 10/11/2022 [facility] DATE CREATED AUTHOR AUTHOR'S ORGANIZ ATION 11/27/2022 [facility] DATE CREATED AUTHOR AUTHOR'S ORGANIZ ATION 12/09/2022 [facility] DATE CREATED AUTHOR AUTHOR'S ORGANIZ ATION 12/09/2022 [employer] DATE CREATED AUTHOR AUTHOR'S ORGANIZ ATION 07/10/2023 [facility] DATE CREATED AUTHOR AUTHOR'S ORGANIZ ATION 08/12/2024 [facility] DATE CREATED AUTHOR AUTHOR'S ORGANIZ ATION 12/11/2024 [facility] DATE CREATED AUTHOR AUTHOR'S ORGANIZ ATION 12/11/2024 [facility] DATE CREATED AUTHOR AUTHOR'S JUAN ATION 12/17/2024 [facility] dical Specialists [facility] FOR RECORDS PERTAINING TO PATIENTS WHO ARE [...] BE BASED ON THE PRIMARY CLINICAL RECORDS. [facility] [employer] provides no warranty or guarantee of the accuracy or completeness of information in this document.
[2024-12-17 06:55] VITALS: BP 138/90; PULSE 83; TEMP 36.5; O2SAT 97
[2024-12-17] MEDS: 0.9 % SODIUM CHLORIDE 500 ML 50 ML IV ×2 (07:18→08:15)
[2024-12-17] MEDS: CEFAZOLIN SODIUM/DEXTROSE,ISO 1 GM/50 ML PREMIX IV (07:19)
[2024-12-17] MEDS: LIDOCAINE HCL 2%-EPINEPHRINE 1:200,000 20 ML MDV 40 ML INJ (08:11)
[2024-12-17 08:56] VITALS: BP 119/78; PULSE 74; TEMP 36.3; O2SAT 100
[2024-12-17 09:07] VITALS: BP 120/75; PULSE 75; O2SAT 99
--- NOTE | 2024-12-17 09:09 | W.PM.PROCNOT ---
Date of procedure: 12/17/24 Pre-op diagnosis: Pain due to lumbar stenosis with neurogenic claudication Post-op diagnosis: same as pre-op Procedure: Procedure Performed by: Willian Jensen M.D. Procedure: Placement of [employer] 16 contact neuroelectrode leads (x two) and Impulse Generator Battery under fluoroscopic guidance *Needle Manufacturing Design Engineer at the interspace below T11/12 *Final Lead Placement Level at the top of the vertebral body T8 *Battery Placement on the Left Side Anesthesia: Monitored Anesthesia Care is medically necessary for the procedure due to the procedure requiring the patient to remain motionless for a prolonged period of time. Procedure: Risks, Benefits, Alternatives were reviewed and informed consent was obtained in the preop holding area. All questions were answered appropriately. The patient was brought to the operating room and placed in the prone position with padding under all bony prominences. A pre-procedure time out was performed specifying pt. name, nature site and side of surgery, and allergies. Anesthesia provided appropriate sedation as the skin over the thoracic and lumbar spine were prepped and draped in the usual sterile fashion. Under fluoroscopic guidance, the needle entry level electrical engineer interspace noted above was identified as the site for epidural needle entry. The skin and subcutaneous tissues were anesthetized approximately 1 level inferior to this point with a mixture of 1% lidocaine and 0.25% bupivacaine. A 14 gauge tuohy needle was inserted to the superior aspect of the lamina just inferior to the target interspace. Then, using loss of resistance technique as well as fluoroscopic guidance, the epidural space was entered. Two [employer] Leads were then advanced under intermittent fluoroscopic guidance until the distal tip of the electrode was observed to be in position at the location noted above. After appropriate electrode placement was achieved, stimulation was tested intraoperatively with multiple lead configurations until concordant paresthesias were obtained covering the areas of the patient's pain. Intraoperative analysis and programming of the neurostimulator pulse generator was completed by the physician and the clearance representative from [email or web address]. Next, the skin approximately 1cm superior to the needle entry point and 3cm distal to the needle entry point were anesthetized with 1% lidocaine and 0.25% bupivacaine. An incision was made along this area exposing the underlying fascia. Hemostasis was achieved. A small horizontal incision was made in the subcutaneous tissue overlying the posterior ilium after local anesthetic was infiltrated with 1% lidocaine and 0.25% bupivacaine mixture. A small pocket was made in the subcutaneous fat using blunt dissection. Hemostasis was obtained. A stimulator battery/implantable generator was then placed into the small pocket and attached to the electrodes. Testing was performed to ensure adequate connection between the electrodes and battery. After testing was completed, the two incisions were sutured with Vicryl 3-0 for deep tissue and Vicryl 4-0 for epidermis. The incisions were covered with sterile bandages. The patient was then taken to the recovery area in good condition. Anesthesia: MAC Surgeon: Willian Jensen Pathology: none sent Condition: stable Disposition: no change
== END 2024-12-17 09:25 | disposition home or self-care (01) ==
PROVIDERS: Visit Provider Anesthesiology
DX: M48.062 Spinal stenosis, lumbar region with neurogenic claudication (principal)
CPT/HCPCS: 63650; 63685; C1820; J0690; J2250; J2405; J2704; J3010

== ENCOUNTER 2024-12-21 09:12 | Outpatient (OUT) | payer MEDICARE, MEDICAID, SELFPAY ==
--- OUTSIDE RECORDS SUMMARY | 2018-01-25 09:00 | XMS_ITS | Continuity of Care Document ---
Author Organization [facility] Address [address] [place] [address] Phone Care Team Providers Care Director Of Strategic Initiatives Name Role Phone Antoine Leonard DMD Unavailab [...] Diagnoses Date Provider Providers Copied on Encounter [facility], [address] [place] [address], [place], [place], [id number] , [place] tel:[phone] Dental Clinic prophy (chief complaint) Encounter for screening for dental disorders 8 Demetrice [facility] [address] [facility], [place], [address], [place]. tel:[phone] 23 [facility], [address] [facility], [place], [place], [id number] , [place] tel:[phone] Dental Clinic prophy (chief complaint) Encounter for screening for dental disorders 7 Preet Merchantbo. [address] [facility], [place], [address], [place]. tel:[phone] 23 [facility], [address] [facility], [facility] [place], [id number] , [place] tel:[phone] Dental Clinic extraction (chief complaint) Encounter for screening for dental disorders 7 Declan Andriy Snell. [address] [facility], [place], [address], [place]. tel:[phone] 23 [facility], [address] [place], [place], [id number] , [place] tel:[phone] Dental Clinic dental limited (chief complaint) Encounter for screening for dental disorders 7 Preet Moreno. [address] [facility], [place], [address], [place]. tel:[phone] 23 [facility], [address] [facility], [facility] [place], [id number] , [place] tel:[phone] Dental Clinic Encounter for screening for dental disorders 6 [facility] August. [address] [facility] [address], [place]. tel:[phone] 23 [facility], [address] [facility] [place], [address] , [place] tel:[phone] Dental Clinic prophy (chief complaint) Encounter for screening for dental disorders 6 [facility] August. [address] [facility], [place], [place], [address], [place]. tel:[phone] 23 [facility], [address] [place], [place], [address] , [place] tel:[phone] Dental Clinic Encounter for screening for dental disorders 6 Beau DMD Nanette. [address] [place], [place], [id number], [place]. tel:[phone] 23 OFFICE/OUTPA TIENT VISIT, EST [facility], [address] [place], [place], [id number] , [place] tel: [phone] [facility] repeat pap (chief complaint) Papanicolaou smear of cervix with atypical squamous cells of undetermined significance (ASC-US) 4 [facility] Evelyn. [address] [place], [place], [id number], [place]. tel:[phone] PREV VISIT, EST, AGE 12-17 [facility], [address] [place], [place], [id number] , [place] tel: [phone] [facility] annual visit (chief complaint) Gynecological ExaminationMam venecia, Screening 3 Jer Cleveland. [address] [place], [place], [address], [place]. tel:[phone] OFFICE/OUTPA TIENT VISIT, EST [facility], [address] [place], [place], [address] , [place] tel: [phone] [facility] No Information 2 Lamp Megha. [address] [place], [place], [id number], [place]. tel:[phone] [facility], [address] [place], [place], [address] , [place] tel: [phone] [facility] No Information 2 Visci DO Gadiel. [address] [place], [place], [address], [place]. tel:[phone] 23 [facility], [address] [place], [place], [address] , [place] tel: [phone] [facility] No Information 2 Lamp Megha. [address] [place], [place], [address], [place]. tel:[phone] [facility], [address] [place], [place], [address] , [place] tel: [phone] [facility] No Information 2- 0 Jer Cleveland. [address] [place], [place], [address], [place]. tel:[phone] 23 OFFICE/OUTPA TIENT VISIT, [facility], [address] [place], [place], [address] , [place] tel: [phone] [facility] No Information 9 Milton ROSARIOLoren Arriola. [address] [place], [place], [id number]. tel:[phone] 23 OFFICE/OUTPA TIENT VISIT, [facility], [address] [place], [place], [address] , [place] tel: [phone] [facility] No Information 9 No Information OFFICE/OUTPA TIENT VISIT, [facility], [address] [place], [place], [address] , [place] tel: [phone] [facility] No Information 9 Tere Sloan. [address] [place], [place], [id number], [place]. tel:[phone] 23 OFFICE/OUTPA TIENT VISIT, [facility], [address] [place], [place], [address] , [place] tel: [phone] [facility] No Information 9 Tere Sloan. [address] [place], [place], [address], [place]. tel:[phone] PREV VISIT, EST, AGE 18-39 [facility], [address] [place], [place], [address] , [place] tel: [phone] [facility] No Information 0 6200 9 Donavon Avina. [address] [place], [place], [address]. tel:[phone] 23 OFFICE/OUTPA TIENT VISIT, EST [facility], [address] [place], [place], [address] , [place] tel:[phone] [facility] No Information 8 Tere Sloan. [address] [place], [place], [id number], [place]. tel:[phone] 23 Family History Family Member Type Diagnosis [...]
--- OUTSIDE RECORDS SUMMARY | 2024-10-08 10:45 | XMS_ITS ---
Author Organization [facility] Address [address] [place] [address] Care Team Providers Care Temporary Receptionist Name Role Phone Radha Mcintosh Primary Care Provider [phone] Gissell Kaufman Unavailable [phone] REASON FOR VISIT 3 month f/u Encounters Encounter Location Date Provider Diagnosis [facility] [address] [place] [address] 10/08/2024 Radha Mcintosh Plan Of Treatment Next Appt Details Provider Name:Radha Mcintosh, 0 01/16/2025 01:45:00 PM, [address] [place], [address], Provider Name:Bob Nicezk, 0 02/21/2025 10:35:00 AM, [address], [place], [address], Provider Name:Gissell Kaufman , 07/04/2025 02:20:00 PM, [address], [place], [address], Progress Notes * VANI TORIBIO:1975 ([age] yo F)Acc No.[id number]:10/08/2024 Behavioral Health Patient: Brent EMILY RIVERA Appointment Provider: Kaiden Mcintosh :1975 A ge:49 Y S ex:Female Date:10/08/2024 Address:[address], [place], [id number] Subjective: * Chief Complaints: * 1 . 3 month f/u. * Medical History: Objective: * Vitals: Assessment: Plan: * Treatment: * Images: * Electronic signature of MARIBEL Mckinney on 12/21/2024 at 09:15 AM EDT Sign off status: Pending * Appointment Provider: Kaiden Mcintosh Date: 0 10/08/2024 Generated for Joshua saunders/Debora/Yo on: 0 12/21/2024 09:15 AM EDT
--- OUTSIDE RECORDS SUMMARY | 2024-12-13 10:45 | XMS_ITS | Encounter Summary ---
Author Organization [facility] Address [address] [place] [address] Care Team Providers Care Cable Splicer Assistant Name Role Phone Diony Sharma MD Primary Care Provider [phone] Kenyetta Dove MD Unavailable [phone] Simón Ozuna MD Unavailable [phone] Amanda Montiel MD Unavailable [phone] Krish Hodge MD Unavailable [phone] Beny Hoskins MD Unavailable [phone] Reason for Referral * Imaging (Routine) - Closed Specialty Diagnoses / Procedures Referred By Yared madera Referred To Contact Radiology Diagnoses Bilateral lower extremity edema Pain of upper abdomen Procedures CT abdomen pelvis w IV contrast Shilpa Menendez PA [address] [place] [address] Phone: tel: fax: [facility] [address] [address] Phone: tel: fax: Referral ID Status Reason Start Date Expiration Date Visits Re quested Visits Authorized [id number] Closed 12/13/2024 06/11/2025 1 1 Reason for Visit * Reason Comments Review lab Review lab drawn 03/2025 Medicare Annual Wellness Visit Marco t Encounter Details Date Type Department Care Team (Late st Contact Info) Description 12/13/2024 10:45 AM EDT Office Visit [facility] [address] [place] [address] Diony Sharma MD [address] [place] [address] Bilateral lower extremity edema (Primary Dx); Pulmonary hypertension (HCC); Dyspnea, unspecified type; Essential hypertension ; Medicare annual wellness visit, subsequent; ACP (advance care planning); Obstructive sleep apnea syndrome; Pain of upper abdomen Social History Tobacco Use Types Packs/Day Years Used Date Smoking Tobacco: Every Day Cigarettes Smokeless Tobacco: Never Comments:Pt smoked 1/2 ppd s chata age [age] years old. Alcohol Use Standard Drinks/Week Comments Never 0 (1 standard drink = 0.6 oz pur e alcohol) PHQ-2 Answer Date Recorded Patient Health Questionnaire-2 Score 0 12/13/2024 Comments Unknown Sex and Gender Information Value Date Recorded Sex Assigned at Not on file Legal Sex Female 7:12 PM EDT Gender Identity Not on file Sexual Orientation Not on file Occupation Industry Job Start Date Job End Date disabled Not on file Not on file Not on file documented as of this encounter Last Filed Vital Signs Vital Sign Reading Time Taken Comments Blood Pressure 124/86 12/13/2024 10:42 AM EDT Pulse 79 12/13/2024 10:42 AM EDT Temperature - - Respiratory Rate - - Oxygen Saturation 97% 12/13/2024 10:42 AM EDT Inhaled Oxygen Concentration - - Weight 145 kg (320 lb) 12/13/2024 10:42 AM EDT Height 170.2 cm (5' 7 ) 12/13/2024 10:42 AM EDT Body Mass Index 50.12 12/13/2024 10:42 AM EDT documented in this encounter Functional Status * Over the past 2 weeks, how often have you been bothered by any of the following problems? Question Answer Date of Assessment Author Little interest or pleasure in doing things Not at all 12/13/2024 10:00 AM EDT Kim Thompson MA Feeling down, depressed, or hopeless Not at all 12/13/2024 10:00 AM EDKim Doshi MA Patient Health Questionnaire -2 Score 0 12/13/2024 10:00 AM Kim Swartz MA documented as of this encounter Progress Notes * Diony Sharma MD - 12/13/2024 10:45 AM EDT Images from the original note were not included. Lupe Pickard is a 49 y.o. female presents with chief complaint of Review lab (Review lab drawn 12/07/2024) and Medicare Annual Wellness Visit Subsequent HPI: History of Present Illness The patient presents for evaluation of leg swelling, sleep apnea, and weight management. She has been experiencing leg swelling since 09/2024, which has not improved despite various treatments. The swelling is accompanied by redness and pain. She also reports pitting edema in her legs. She has an upcoming appointment with Dr. Redding to examine the veins in her legs. She has discontinued Lasix and diltiazem at the robotype operator recommendation. She was prescribed Keflex, but it did not alleviate her symptoms. She was previously on Lasix 40 mg twice daily and potassium 20 mg twice daily, but these medications were discontinued by her robotype operator, at [facility], who instead prescribed losartan hydrochlorothiazide. This new medication has not resulted in any noticeable changesin her leg swelling. She has been referred for a sleep study, which is scheduled for 01/2025. She reports difficulty staying asleep, often waking up due to pain in her legs and upper stomach area, which she describes as feeling inflamed. She typically goes to bed around 10:30 PM and takes melatonin at 9:00 PM to aid sleep. Despite this, she has been waking up throughout the night recently, feeling uncomfortable and finding it difficult to return to sleep. She estimates that she gets about 8 hours of sleep per night, although it is often interrupted by periods of wakefulness lasting 20 to 30 minutes. She believes the pain in her legs and back, and more recently in her stomach, is preventing her from falling backasleep. She has been advised to consider Wegovy for potential sleep apnea treatment, but has not officially been diagnosed yet, has not had sleep study. Her weight has been steadily increasing, which she attributes to fluid retention. She has been advised to consider Wegovy for potential sleep apnea treatment, but has not yet discussed this with Dr. Sharma. She has an upcoming nerve stimulator surgery for her back pain at [facility]. She has hadx-rays of her back and reports severe low back pain, which she suspects may be due to a pinched nerve affecting both lower legs. She is unsure if the issue is lymphatic or related to the sternocleidomastoid muscle. She reports abdominal swelling and tenderness on both sides. She still has her gallbladder. She had her thyroid removed due to fluctuating lab results and sees Dr. Dove for her thyroid condition. Sleep: She typically goes to bed around 10:30 PM and takes melatonin at 9:00 PM. She estimates thatshe gets about 8 hours of sleep per night, although it is often interrupted by periods of wakefulness lasting 20 to 30 minutes. PAST SURGICAL HISTORY: - Thyroidectomy due to fluctuating lab results FAMILY HISTORY She does not have a family history of thyroid cancer. I have reviewed and reconciled the history and medication list with the patient today. CURRENT PCP/CARE TEAM: Patient Care Team: Diony Sharma MD as PCP - General (Internal Medicine) Kenyetta Dove MD as Referring Physician (Endocrinology) Simón Ozuna MD as Referring Physician (Urology) Amanda Montiel MD (Obstetrics and Gynecology) Krish Hodge MD as Referring Physician (Ophthalmology) [facility] Beny Hoskins MD as Referring Physician (Gastroenterology) Over the past 2 weeks, how often have you been bothered by any of the following problems? Little interest or pleasure in doing things: Not at all Feeling down, depressed, or hopeless: Not at all Patient Health Questionnaire-2 Score: 0 Rosales Fall Risk History of Falling, Immediate or Within 3 Months: No Health Risk Assessment Form Do you need help eating, bathing, using the toilet, dressing, or getting around your home?: No Can you prepare your own meals?: Yes Can you do your own housework without help?: Yes Can you shop for groceries or clothes without help?: Yes Do you exercise for about 20 minutes 3 or more days a week?: No How confident are you that you can control and manage most of your health problems?: Very confident Can you mange your money, credit cards and accounts, pay bills and taxes?: Yes Vision Screening: Yes, patient sees regular harness cutter/truck bracer Cognitive Screening Three Word Registration: Apple, Watch, Leonor Clock Drawing: Normal Clock - 2 Three Word Recall: All 3 words correct - 3 Total Score (0-5 Points): 5 Pain Assessment Pain Score: 5 - Moderate pain HISTORIES: PAST MEDICAL HISTORY: Past Medical History: Diagnosis Date Acquired absence of uterus with remaining cervical stump Anxiety Bladder disorder Chronic fatigue Depression Fibromyalgia SANDRA (generalized anxiety disorder) Graves disease Hypertension Hypothyroidism (acquired) Irritable bowel syndrome with constipation 01/24/2024 Lyme disease Mixed stress and urge urinary incontinence Morbid obesity with BMI of 40.0-44.9, adult ([facility]) Nonscarring hair loss, unspecified Postprocedural hypothyroidism Primary osteoarthritis involving multiple joints 01/24/2024 Urinary retention Vitamin D deficiency 01/24/2024 SURGICAL HISTORY: Past Surgical History: Procedure Laterality Date BREAST BIOPSY Left SECTION, LOW TRANSVERSE 1992, 1993, 2002, 2006 HYSTERECTOMY all except 1 ovary THYROIDECTOMY SOCIAL HISTORY: Social History Tobacco Use Smoking status: Every Day Types: Cigarettes Smokeless tobacco: Never Tobacco comments: Pt smoked 1/2 ppd since age 17 years old. Vaping Use Vaping status: Every Day Substance Use Topics Alcohol use: Never Drug use: Yes Types: Marijuana Depression: Not at risk (12/13/2024) PHQ-2 PHQ-2 Score: 0 FAMILY HISTORY: Family History Problem Relation Name Age of Onset Diabetes type II Mother Hypertension Mother Depression Mother Heart disease Brother x 3 Lymphoma Maternal Grandmother Breast cancer Paternal Grandmother Mental illness Son x 2 MEDICATIONS: Current Outpatient Medications Medication Instructions B Nsejglh-Xwevqo-VF (Super Quints B-50) tablet Take by mouth cholecalciferol (VITAMIN D-3) 50 mcg, Oral, Daily RT COLLAGEN PO Take by mouth escitalopram (LEXAPRO) 20 mg, Daily ferrous sulfate 325 mg, Daily with breakfast levothyroxine (SYNTHROID, LEVOXYL) 125 mcg, Oral, Daily liothyronine (CYTOMEL) 5 mcg, Oral, Daily losartan-hydroCHLOROthiazide (Hyzaar) 100-12.5 MG tablet 1 tablet, Daily lubiprostone (AMITIZA) 24 mcg, Daily PRN magnesium oxide (MAG-OX) 400 mg, 2 times daily melatonin 10 MG tablet Take by mouth metroNIDAZOLE (Metrogel) 0.75 % gel Apply twice daily to rosacea for 8 weeks. Multiple Vitamin (Multi Vitamin Daily) tablet Take by mouth nystatin (Mycostatin) ointment Apply thin film BID prn irritation Probiotic Product (PRO-BIOTIC BLEND PO) Take by mouth propranolol (INDERAL) 20 mg, 2 times daily Turmeric (QC TUMERIC COMPLEX PO) Take by mouth ALLERGIES: No Known Allergies PHYSICAL EXAM: Visit Vitals BP 124/86 Pulse 79 Ht 5' 7 Wt 320 lb SpO2 97% BMI 50.12 kg/m?? Smoking Status Every Day BSA 2.62 m?? BP Readings from Last 3 Encounters: 12/13/24 124/86 12/06/24 128/80 11/21/24 140/80 Wt Readings from Last 3 Encounters: 12/13/24 320 lb 12/06/24 320 lb 11/21/24 309 lb Physical Exam General Examination: alert, oriented, normal affect, well-appearing, in no acute distress, well developed, well nourished. Head: normocephalic, atraumatic Heart: regular rate and rhythm, S1, S2 normal Lungs: clear to auscultation bilaterally. No wheezes, rales, rhonchi. Extremities: 1-2+ bilateral LE pitting edema, no cyanosis Psych: alert, oriented, cognitive function intact, cooperative with exam. Results Labs - Urine protein test: Normal Imaging - Echocardiogram: Normal ejection fraction and a little bit of high blood pressure in the lungs ASSESSMENT AND PLAN: Assessment & Plan 1. Bilateral lower extremity edema. - Persistent leg swelling despite treatments, including Lasix and losartan hydrochlorothiazide. - Reports pitting edema, redness, and pain. - Referral to Dr. Huerta for vein evaluation. - we are going to get Ct abd and pelvis to check for obstructive etiology. 2. Sleep apnea. - Referred for a sleep study scheduled for 01/2025 at [facility]. - Suspected contribution to pulmonary hypertension and disrupted sleep. - Advised to call on Mondays for possible cancellations to expedite the study. - Discussed potential use of Wegovy for weight loss and sleep apnea management. 3. Weight management. - Weight increased from 312 lbs in 09/2024 to 320 lbs currently, likely due to fluid retention. - Wegovy discussed as a potential treatment for weight loss and sleep apnea. - Informed about possible side effects: gastrointestinal upset, nausea, and diarrhea. - denies hx thyroid cancer in herself or family or pancreatitis. - Prescription for Wegovy will be provided if covered by insurance after an official diagnosis of sleep apnea. 4. Back pain. - Reports severe lower back pain potentially affecting both lower legs. - Nerve stimulator surgery scheduled for 12/17/2024 at [facility]. 5. Pulmonary hypertension -mild, on echo, rule out JOSELINE. 6. Dyspnea -continue work up as above. 7. Hypertension - continue current regimen. 8. Medicare Wellness Seen by Shilpa Menendez PA-C in conjunction with PCP. Patient here for annual Medicare Wellness visit. Demographics were updated. Self-assessment was completed. Past medical, family, and social history were updated. The medication list, including supplements being taken, was updated. A list of other current medical providers was established/updated. Time was spent discussing health maintenance issues, ordering proper testing, and a schedule was provided regarding recommended screening. We discussed safety issues and fall risk. Depression screening was completed and addressed. Fall screening was completed and addressed. Cognitive function was assessed by direct observation and assessment of ability to perform ADL's and IADL's was done. The current BMI was provide and will continue to be monitored at routine office visits as well. Major risk factors for chronic disease including family history were discussed and a list was provided with the care plan. 9. ACP Patient wishes to be full code, no current ACP documents. 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 11. Pain of upper abdomen -CT abd/pelvis w contrast. Patient was seen and examined with MARITZA King. History was confirmed and verified. Lucia elements of the exam were also completed. Assessment and plan were reviewed and addended as needed. Agree with documentation above. documented in this encounter Plan of Treatment Upcoming Encounters Date Type Department Care Team (Late st Contact Info) Description 02/06/2025 1:00 PM EDT Office Visit [facility] [address] [place] [address] 02/12/2025 11:10 AM EDT Office Visit [facility] [address] [place] [address] Kenyetta Dove MD [address] [place] [address] documented as of this encounter Procedures Procedure Name Priority Date/Time Associated Diagnosis Comments CT ABDOMEN PELVIS W IV CONTRAST Routine 12/19/2024 11:54 AM EDT Bilateral lower extremity edema Pain of upper abdomen documented in this encounter Results * CT abdomen pelvis w IV contrast (12/19/2024 11:54 AM EDT) Anatomical Region Laterality Modality Body, Pelvis, Abdomen Computed T omography 12/19/2024 2:50 PM EDT Impressions 12/19/2024 2:56 PM EDT No acute abdominopelvic process. Hepatomegaly. ELECTRONICALLY SIGNED BY: Diony Wetzel DO Narrative 12/19/2024 2:56 PM EDT EXAM: CT ABDOMEN PELVIS W IV CONTRAST History: Lower extremity edema. Abdominal swelling. Abdominal pain. Technique: Multiple contiguous axial images were obtained of the abdomen and pelvis from the level of the lung bases through the ischial tuberosities with contrast. Multiplanar reformats were obtained. Delayed images were obtained. All CT scans at this facility use dose modulation, iterative reconstruction, and/or weight based dosing when appropriate to reduce radiation dose to as low as reasonably achievable. Comparison: None available Findings: Lung bases are clear. The liver is enlarged measuring approximately 21.6 cm in craniocaudal length. The gallbladder, stomach, spleen, pancreas, and adrenal glands are within normal limits. The kidneys enhance uniformly. Simple appearing 1 cm right renal cyst noted. No urinary tract calculi or hydronephrosis. Urinary bladder is well distended. The uterus is absent. Abdominal aorta is nonaneurysmal. No retroperitoneal or abdominal/pelvic lymphadenopathy. No small bowel obstruction. No overt colonic mass or pericolonic inflammation. Appendix is within normal limits. No free fluid or free air. No acute osseous abnormality. Degenerative changes of the spine. Spinal cord stimulator noted. Procedure Note Diony Wetzel DO - 12/19/2024 EXAM: CT ABDOMEN PELVIS W IV CONTRAST History: Lower extremity edema. Abdominal swelling. Abdominal pain. Technique: Multiple contiguous axial images were obtained of the abdomenand pelvis from the level of the lung bases through the ischialtuberosities with contrast. Multiplanar reformats were obtained. Delayedimages were obtained. All CT scans at this facility use dose modulation, iterativereconstruction, and/or weight based dosing when appropriate to reduceradiation dose to as low as reasonably achievable. Comparison: None available Findings: Lung bases are clear. The liver is enlarged measuring approximately 21.6 cm in craniocaudallength. The gallbladder, stomach, spleen, pancreas, and adrenal glands arewithin normal limits. The kidneys enhance uniformly. Simple appearing 1 cm right renal cystnoted. No urinary tract calculi or hydronephrosis. Urinary bladder is welldistended. The uterus is absent. Abdominal aorta is nonaneurysmal. No retroperitoneal or abdominal/pelviclymphadenopathy. No small bowel obstruction. No overt colonic mass or pericolonicinflammation. Appendix is within normal limits. No free fluid or freeair. No acute osseous abnormality. Degenerative changes of the spine. Spinalcord stimulator noted. IMPRESSION: No acute abdominopelvic process. Hepatomegaly. ELECTRONICALLY SIGNED BY: Diony Wetzel DO [facility]on SALAS IMG CT PROCEDURES Final Resu lt documented in this encounter Visit Diagnoses Diagnosis Bilateral lower extremity edema- Primary Pulmonary hypertension (HCC) Other chronic pulmonary heart diseases Dyspnea, unspecified type Essential hypertension Unspecified essential hypertension Medicare annual wellness visit, subsequent ACP (advance care planning) Other specified counseling Obstructive sleep apnea syndrome Obstructive sleep apnea (adult) (pediatric) Pain of upper abdomen Vitamin D deficiency- Primary documented in this encounter Care Teams Cable Splicer Assistant Relationship Specialty Start Date End Date Diony Sharma MD [address] [place] [address] PCP - General Internal Medicine 01/24/24 Kenyetta Dove MD [address] [place] [address] Referring Physician Endocrinology 08/01/24 Simón Ozuna MD [address] [place] [address] Referring Physician Urology 08/01/24 Amanda Montiel MD [address] [place] [address] Obstetrics and Gynecology 08/01/24 Krish Hodge MD [address] [place] [address] Referring Physician Ophthalmology 08/01/24 Beny Hoskins MD [address] [place] [address] [address] [place] [address] Referring Physician Gastroenterology 08/01/24 [facility] Mental Health 08/01/24 documented as of this encounter
--- OUTSIDE RECORDS SUMMARY | 2024-12-19 11:45 | XMS_ITS | Encounter Summary ---
Author Organization [facility] Address [address] [place] [address] Care Team Providers Care Emergency Response Technician Name Role Phone Diony Sharma MD Primary Care Provider [phone] Kenyetta Dove MD Unavailable [phone] Simón Ozuna MD Unavailable [phone] Amanda Montiel MD Unavailable [phone] Krish Hodge MD Unavailable [phone] Beny Hoskins MD Unavailable [phone] Reason for Visit * Imaging (Routine) - Closed Specialty Diagnoses / Procedures Referred By Yared madera Referred To Contact Radiology Diagnoses Bilateral lower extremity edema Pain of upper abdomen Procedures CT abdomen pelvis w IV contrast Shilpa Menendez, MARITZA [address] [place] [address] Phone: tel: fax: [facility] [address] [place] [address] Phone: tel: fax: Referral ID Status Reason Start Date Expiration Date Visits Re quested Visits Authorized [id number] Closed 12/13/2024 06/11/2025 1 1 Encounter Details Date Type Department Care Team (Latest Contact Info) Description 12/19/2024 11:45 AM EDT Ancillary Procedure [facility] [address] [place] [address] Vitamin D deficiency (Primary Dx) Social History Tobacco Use Types Packs/Day Years [...] as of this encounter Plan of Treatment Upcoming Encounters Date Type Department Care Team (Late st Contact Info) Description 02/06/2025 1:00 PM EDT Office Visit [facility] [address] [place] [address] 02/12/2025 11:10 AM EDT Office Visit [facility] [address] [place] [address] Kenyetta Dove MD [address] [place] [address] documented as of this encounter Procedures Procedure Name Priority Date/Time Associated Diagnosis Comments CT ABDOMEN PELVIS W IV CONTRAST Routine 12/19/2024 11:54 AM EDT Bilateral lower extremity edema Pain of upper abdomen documented in this encounter Visit Diagnoses Diagnosis Vitamin D deficiency- Primary documented in this encounter Administered Medications Inactive Administered Medications - up to 3 most recent administrations Medication Order MAR Action Action Date Dose Rate Site iopamidol (Isovue-300) 61 % injection 100 mL 100 mL, Intravenous, Once in imaging, Starting on Tue12/19/24 at 1154, For 1 dose, Use NS provided in 500 mL or 1000 mL flexible bags for preparation.Indications:Vitamin D deficiency New Bag 12/19/2024 11:54 AM EDT 100 mL documented in this encounter Care Teams Emergency Response Technician Relationship Specialty Start Date End Date Dinoy Sharma MD [address] [place] [address] PCP - General Internal Medicine 01/24/24 Kenyetta Dove MD [address] [place] [address] Referring Physician Endocrinology 08/01/24 Simón Ozuna MD [address] [place] [address] Referring Physician Urology 08/01/24 Amanda Montiel MD [address] [facility] [address] [place] [address] Obstetrics and Gynecology 08/01/24 Krish Hodge MD [address] [place] [address] Referring Physician Ophthalmology 08/01/24 Beny Hoskins MD [address] [place] [address] [address] [place] [address] Referring Physician Gastroenterology 08/01/24 [facility] 08/01/24 documented as of this encounter
--- OUTSIDE RECORDS SUMMARY | 2024-12-20 15:00 | XMS_ITS | Encounter Summary ---
Author Organization [facility] Address [address] [place] [address] Care Team Providers Care Frame Carver Spindle Name Role Phone Diony Sharma MD Primary Care Provider [phone] Kenyetta Dove MD Unavailable [phone] Simón Ozuna MD Unavailable [phone] Amanda Montiel MD Unavailable [phone] Krish Hodge MD Unavailable [phone] Beny Hoskins MD Unavailable [phone] Reason for Visit * Reason Comments 2 Week Follow Up Bilateral extremity edema continues. Weight gain of 3.6 # since 12/13 OV. Appointment scheduled with Dr Redding 12/26/2024 Encounter Details Date Type Department Care Team (Late st Contact Info) Description 12/20/2024 3:00 PM EDT Office Visit [facility] [address] [place] [address] Shilpa Menendez PA [address] [place] [address] Bilateral lower extremity edema (Primary Dx); Hepatomegaly Social History Tobacco Use Types Packs/Day Years [...] Sign Reading Time Taken Comments Blood Pressure 118/80 12/20/2024 3:10 PM EDT Pulse 79 12/20/2024 3:10 PM EDT Temperature - - Respiratory Rate - - Oxygen Saturation 97% 12/20/2024 3:10 PM EDT Inhaled Oxygen Concentration - - Weight 147 kg (323 lb 9.6 oz) 12/20/2024 3:10 PM EDT Height 170.2 cm (5' 7 ) 12/20/2024 3:10 PM EDT Body Mass Index 50.68 12/20/2024 3:10 PM EDT documented in this encounter Progress Notes * MARITZA Corbin - 12/20/2024 3:00 PM EDT Lupe Pickard is a 49 y.o. female presents with chief complaint of 2 Week Follow Up (Bilateral extremity edema continues. Weight gain of 3.6 # since 12/13 OV. Appointment scheduled with Dr Redding 12/26/2024) HPI: History of Present Illness The patient presents for a 2-week follow-up for continued bilateral lower extremity swelling. She has had an extensive workup, including a normal echocardiogram and BNP. A CT scan of the abdomen and pelvis to rule out obstructive uropathy showed an enlarged liver and a right renal cyst, which will be followed up on. She has tried Lasix up to 40 mg twice daily and hydrochlorothiazide without relief. She has an appointment scheduled with vascular surgery, Dr. Hewitt, on 12/26/2024. She reports feeling fatigued and experiences tightness in her legs, describing it as if they might burst upon movement. She also notes tenderness in her legs. She occasionally uses compression stockings but not consistently. She has completed her sleep study and has consulted with Dr. Dale. She reports that her abdominal pain, which previously disrupted her sleep, has somewhat subsided. I have reviewed and reconciled the history [...] Morbid obesity with BMI of 40.0-44.9, adult ([facility] Nonscarring hair loss, unspecified Postprocedural hypothyroidism Primary [...] MEDICATIONS: Current Outpatient Medications Medication Instructions B Ahvkhyj-Sbgjyr-RW (Super Quints B-50) tablet Take by mouth [...] Known Allergies PHYSICAL EXAM: Visit Vitals BP 118/80 (BP Location: Left arm, Patient Position: Sitting) Pulse 79 Ht 5' 7 Wt 323 lb 9.6 oz SpO2 97% BMI 50.68 kg/m?? Smoking Status Every Day BSA 2.64 m?? BP Readings from Last 3 Encounters: 12/20/24 118/80 12/13/24 124/86 12/06/24 128/80 Wt Readings from Last 3 Encounters: 12/20/24 323 lb 9.6 oz 12/13/24 320 lb 12/06/24 320 lb Physical Exam General Examination: alert, oriented, normal affect, well-appearing, in no acute distress, well developed, well nourished. Head: normocephalic, atraumatic Eyes: sclera non-icteric Heart: regular rate and rhythm, S1, S2 normal, no carotid bruits Lungs: clear to auscultation bilaterally. No wheezes, rales, rhonchi. Extremities: 2+ pitting b/l LE edema, no cyanosis Psych: alert, oriented, cognitive function intact, cooperative with exam. Results Labs - BNP: Normal Imaging - CT abdomen and pelvis: Enlarged liver and a right renal cyst - Echocardiogram: Normal ASSESSMENT AND PLAN: Assessment & Plan 1. Bilateral lower extremity swelling. - The bilateral lower extremity swelling is not attributed to the right renal cyst. The CT scan didnot reveal any obstructive causes such as lymphadenopathy. - She has been advised to adhere to a diet low in sodium (<1800 mg/day) and saturated fats, following the [place] [employer] guidelines. - The use of compression stockings and calf pumps has been recommended. She has also been informed about the potential benefits of horse chestnut extract for lower extremity swelling. - An appointment with Dr. Hewitt is scheduled for 12/26/2024 to further evaluate her condition. 2. Hepatomegaly. - The CT scan showed an enlarged liver, likely due to fatty liver disease. - She has been advised to follow a Mediterranean diet, focusing on reducing packaged and processed foods, and limiting red meat intake to a couple of times a week. - The importance of probiotics and prebiotics, such as Lithuanian yogurt and luis seeds, was discussed to support gut health. - Continued monitoring of liver function and dietary adherence will be necessary. 3. Sleep apnea. - A sleep study has been completed, but the results are pending. - Once the sleep study results are available, the initiation of GLP-1 injectable medication will beconsidered to help with her overall condition, including leg swelling. - Coordination with the sleep specialist to obtain the study results and proceed with treatment. Follow-up: The patient will follow up on 02/06/2025 or sooner if necessary. documented in this encounter Plan of Treatment Upcoming Encounters Date Type Department Care Team (Late st Contact Info) Description 02/06/2025 1:00 PM EDT Office Visit [facility] [address] [place] [id number] 02/12/2025 11:10 AM EDT Office Visit [facility] [address] [place] [address] Kenyetta Dove MD [address] [place] [address] documented as of this encounter Visit Diagnoses Diagnosis Bilateral lower extremity edema- Primary Hepatomegaly documented in this encounter Care Teams Frame Carver Spindle Relationship Specialty Start Date End Date Diony Sharma MD [address] [place] [address] PCP - General Internal Medicine 01/24/24 Kenyetta Dove MD [address] [place] [address] Referring Physician Endocrinology 08/01/24 Simón Ozuna MD [address] [place] [address] Referring Physician Urology 08/01/24 Amanda Montiel MD [address] [place] [address] Obstetrics and Gynecology 08/01/24 Krish Hodge MD [address] [place] [address] Referring Physician Ophthalmology 08/01/24 Beny Hoskins MD [address] [place] [address] Referring Physician Gastroenterology 08/01/24 [facility] Mental Health 08/01/24 documented as of this encounter
--- OUTSIDE RECORDS SUMMARY | 2024-12-21 09:14 | XMS_ITS | Encounter Summary ---
Author Organization [facility] Address [address] [place] [address] Care Team Providers Care Video Coordinator Name Role Phone Simón Davidson MD Primary Care Provider [phone] Diony Sharma MD Primary Care Provider [phone] Kenyetta Dove MD Unavailable [phone] Simón Ozuna MD Unavailable [phone] Amanda Montiel MD Unavailable [phone] Krish Hodge MD Unavailable [phone] Beny Hoskins MD Unavailable [phone] Encounter Details Date Type Department Care Team (Late st Contact Info) Description 01/23/2024 Orders Only [facility] [address] [place] [phone] A, Unknown Practice [address] [place] [address] Social History Tobacco Use Types Packs/Day Years Used Date Smoking Tobacco: Every Day Cigarettes Smokeless Tobacco: Never Alcohol Use Standard Drinks/Week Comments Never 0 (1 standard drink = 0.6 oz pur e alcohol) Comments Unknown Sex and Gender Information Value [...] IM [address] [place] [id number] 02/12/2025 11:10 AM EDT Office Visit [facility] [address] [place] [address] Kenyetta Dove MD [address] [place] [address] documented as of this encounter Procedures Procedure Name Priority Date/Time Associated Diagnosis Comments MAMMO 3D,BILATERAL SCREENING MAMMOGRAM WITH TOMOSY Routine 01/20/2024 10:01 AM EDT documented in this encounter Results * MAMMO 3D,BILATERAL SCREENING MAMMOGRAM WITH TOMOSY (01/20/2024 10:01 AM EDT) Anatomical Region Laterality Modality Radiographic Quiana ging us Unknown Practice A IMG XR PROCEDURES Final Resul t documented in this encounter Visit Diagnoses Not on filedocumented in this encounter Care Teams Video Coordinator Relationship Specialty Start Date End Date Simón Davidson MD [address] [place] [address] PCP - General Barber Shop Manager 01/16/24 01/23/24 Diony Sharma MD [address] [place] [address] PCP - General Internal Medicine 01/24/24 Kenyetta Dove MD [address] [place] [address] Referring Physician Endocrinology 08/01/24 Simón Ozuna MD [address] [place] [address] Referring Physician Urology 08/01/24 Amanda Montiel MD [address] [place] [address] Obstetrics and Gynecology 08/01/24 Krish Hodge MD [address] [place] [address] Referring Physician Ophthalmology 08/01/24 Beny Hoskins MD [address] [place] [address] [address] [place] [address] Referring Physician Gastroenterology 08/01/24 [facility] 08/01/24 documented as of this encounter
--- OUTSIDE RECORDS SUMMARY | 2024-12-21 09:14 | XMS_ITS | Patient Health Record ---
Author Organization [facility] Address [address] [place] [address] Care Team Providers Care Pin Sticker Name Role Phone Mcintosh Radha Primary Care Provider [phone] Gissell Kaufman Unavailable [phone] Dr. Bob Ureña Unavailable [phone] Mary Fu Unavailable [phone] Allergies No Known Allergies Reason For Referral [...] Status Risk Notes Problem Generalized anxiety disorder (08105586) Generalized Anxiety Disorder (SANDRA) (F41.1) Active confirmed Problem Body mass index 40+ - morbidly obese (540464509) BMI 40.0-44.9, adult (Z68.41) Active confirmed Problem Depressive disorder (06411181) Unspecified Depressive Disorder (F32.9) Active confirmed Problem Posttraumatic stress disorder (69874055) Post traumatic stress disorder (F43.10) Active confirmed Vital Signs Heart Rate 88 /min 10/24/2024 Oximetry 98 % 10/24/2024 Blood pressure diastolic 80 mm Hg 10/24/2024 Height 67.5 in 10/24/2024 Blood pressure systolic 130 mm Hg 10/24/2024 Weight 307.0 lbs 10/24/2024 BMI 47.37 kg/m2 10/24/2024 Encounters Encounter Location Date Provider Diagnosis [facility] [address] [place] [address] 01/02/2024 Radha Mcintosh Generalized Anxiety Disorder (SANDRA) F41.1 [facility] [address] [place] [address] 01/03/2024 Radha Mcintosh [place] [address] [place] [address] 01/03/2024 Radha Mcintosh Generalized Anxiety Disorder (SANDRA) F41.1 [facility] [address] [place] [address] 05/24/2024 Radha Mcintosh Generalized Anxiety Disorder (SANDRA) F41.1 [place] [address] [place] [address] 06/25/2024 Radha Mcintosh Generalized Anxiety Disorder (SANDRA) F41.1 [place] [address] [place] [place] [address] 05/01/2024 Mary Fu Other dental procedure status Z98.818 ; Acute gingivitis, plaque induced K05.00 ; Encounter for dental examination and cleaning with abnormal findings Z01.21 ; Dental caries on pit and fissure surface penetrating into dentin K02.52 and Necrosis of pulp K04.1 [facility] [address] [place] [address] 11/01/2024 Gissell Kaufman Acute gingivitis, plaque induced K05.00 [facility] [address] [place] [address] 10/24/2024 Radha Mcintosh Generalized Anxiety Disorder (SANDRA) F41.1 and Post traumatic stress disorder F43.10 [facility] [address] [place] [address] 04/18/2024 Radha Mcintosh Generalized Anxiety Disorder (SANDRA) F41.1 ; Unspecified Depressive Disorder F32.9 and Post traumatic stress disorder F43.10 [facility] [address] [place] [address] 07/18/2024 Radha Mcintosh Generalized Anxiety Disorder (SANDRA) F41.1 ; Unspecified Depressive Disorder F32.9 and Post traumatic stress disorder F43.10 [facility] [address] [place] [address] 01/31/2024 Radha Mcintosh Generalized Anxiety Disorder (SANDRA) [...] Post traumatic stress disorder (ICD-10 - F43.10) 11/01/2024 Acute gingivitis, plaque induced (ICD-10 - K05.00) 01/31/2024 Unspecified Depressive Disorder (ICD-10 - F32.9) 05/01/2024 Other dental procedure status (ICD-10 - Z98.818) 05/24/2024 Generalized Anxiety Disorder (SANDRA) (ICD-10 - F41.1) 06/25/2024 Generalized Anxiety Disorder (SANDRA) (ICD-10 - F41.1) 07/18/2024 Generalized Anxiety Disorder (SANDRA) (ICD-10 - [...] 07/18/2024 Unspecified Depressive Disorder (ICD-10 - F32.9) 04/18/2024 Unspecified Depressive Disorder (ICD-10 - F32.9) 01/02/2024 Generalized Anxiety Disorder (SANDRA) (ICD-10 - F41.1) 01/03/2024 Generalized Anxiety Disorder (SANDRA) (ICD-10 - F41.1) 04/18/2024 Post traumatic stress disorder (ICD-10 - F43.10) 07/18/2024 Post traumatic stress disorder (ICD-10 - F43.10) 01/31/2024 Post traumatic stress disorder (ICD-10 - F43.10) 05/01/2024 Acute gingivitis, plaque induced (ICD-10 - K05.00) 05/01/2024 Encounter for dental examination and cleaning with abnormal findings (ICD-10 - Z01.21) 05/01/2024 Dental caries on pit and fissure surface penetrating into dentin (ICD-10 - K02.52) 05/01/2024 Necrosis of pulp (ICD-10 - K04.1) Plan Of Treatment Next Appt Details Provider Name:Radha Mcintosh, 0 01/16/2025 01:45:00 PM, [address] [facility], [place], [address], Provider Name:Bob Ureña, 0 02/21/2025 10:35:00 AM, [address] [place], [address], Provider Name:Gissell Kaufman , 07/04/2025 02:20:00 PM, [address], [place], [address], Insurance Providers Payer Name Payer Address Payer Phone Subscriber Number Group Number Insured Name Patient Relationship to Insured Coverage Start Date Coverage End Date MEDICARE CGS 1 [employer] [employer] [facility] [place] [address] [id number] EMILY TORIBIO Self - patient is the insured 0 MEDICAID SEC TO [facility] [address] [place] [address] [phone] [id number] EMILY TORIBIO Self - patient is the insured 0 [facility] MEDICAID [place] [address] [place] [address] [id number] EMILY TORIBIO Self - patient is the insured 0 MEDICAID SEC TO [facility] [address] [place] [address] [id number] EMILY TORIBIO Self - patient is the [...]
--- OUTSIDE RECORDS SUMMARY | 2024-12-21 09:14 | XMS_ITS | Encounter Summary ---
Author Organization [facility] Address [address] [place] [address] Care Team Providers Care Agile Coach Name Role Phone iSmón Davidson MD Primary Care Provider [phone] Diony Sharma MD Primary Care Provider [phone] Kenyetta Dove MD Unavailable [phone] Simón Ozuna MD Unavailable [phone] Amanda Montiel MD Unavailable [phone] Krish Hodge MD Unavailable Beny Hoskins MD Unavailable [phone] Encounter Details Date Type Department Care Team (Late st Contact Info) Description 12/29/2022 External Result Encounter [facility] External Department Unsolicited Amanda Montiel MD [address] [place] [address] Social History Tobacco Use Types Packs/Day Years [...] [address] [place] [address] 02/12/2025 11:10 AM EDT Office Visit [facility] [address] [place] [address] Kenyetta Dove MD [address] [place] [address] documented as of this encounter Procedures Procedure Name Priority Date/Time Associated Diagnosis Comments BI MAMMOGRAM SCREENING BILATERAL 12/29/2022 2:57 PM EDT documented in this encounter Results * Bilateral screening mammogram (12/29/2022 2:57 PM EDT) Anatomical Region Laterality Modality Breast Bilateral Mammography 12/29/2022 2:57 PM EDT Impressions 12/30/2022 7:28 AM EDT NO MAMMOGRAPHIC EVIDENCE OF MALIGNANCY. ROUTINE FOLLOW-UP [...] Neff Jr., DJayceeOJaycee12/29/2022 2:57 PM Dictation Location: [facility] Transcribed By: [facility] 12/29/221456 Dictated By: Bob Neff Jr, DO 12/29/22 1457 Signed By: <Electronically signed by Bob Neff Jr, DO in OV> 12/29/22 1457 Narrative 12/30/2022 7:28 AM EDT [facility] Main [address] [address] Mammography Report Signed Patient: Lupe Pickard MR#: [id number] : 1975 Acct:[id number] Age/Sex: 47 / F ADM Date: 12/29/22 Loc: [place] Room: Type: [facility] Attending Dr: Amanda Montiel MD Copies to: NO FAMILY PHYSICIAN Amanda Montiel MD-[facility]ANTHA Ordering Provider: JOVANY Horan Date of Service: 12/29/22 MM/MM screening mammo BI w/CAD: screening;Encounter for screening mammogram for malignant ne CLINICAL DATA: Screening for malignancy. SCREENING MAMMOGRAM - FULL FIELD DIGITAL WITH TOMOSYNTHESIS AND CAD COMPARISON:Mammograms dating back to 2017 Tomosynthesis craniocaudal and mediolateral oblique views of both breasts were obtained using low- dose digital technique. This examination was reviewed with the aid of CAD. The breast tissue is composed of scattered fibroglandular densities. There are no dominant masses, typically malignant calcifications or architectural distortion. There has been no significant interval change. MM/MM screening mammo BI w/CAD Procedure Note Radiology, Radiologist, - 12/30/2022 [facility] Main [place] [address] [place] [address] Mammography Report Signed Patient: Lupe Pickard MMR#: [id number] : 1975Acct:[id number] Age/Sex: 47 / FADM Date: 12/29/22 Loc: [place] Room:Type: [facility] Attending Dr: Amanda Montiel MD Copies to: NO FAMILY PHYSICIAN Amanda Montiel MD-[facility] Ordering Provider: Amanda Montiel MD-SAMANTHA Date of Service: 12/29/22 MM/MM screening mammo BI w/CAD:screening;Encounter for screening mammogram for malignant ne CLINICAL DATA: Screening for malignancy. SCREENING MAMMOGRAM - FULL FIELD DIGITAL WITH TOMOSYNTHESIS AND CAD COMPARISON:Mammograms dating back to 2017 Tomosynthesis craniocaudal and mediolateral oblique views of both breastswere obtained using low- dose digital technique. This examination was reviewed with the aid ofCAD. The breast tissue is composed of scattered fibroglandular densities.There are no dominant masses, typically malignant calcifications or architectural distortion. There hasbeen no significant interval change. MM/MM screening mammo [...] system with a target due date for thenext mammogram. Impression dictated by: Bob Neff Jr., D.OJaycee12/29/2022 2:57 PM Dictation Location: [facility] Transcribed By: [facility] 12/29/22 1457 Dictated By: Bob Neff Jr, DO 12/29/22 1457 Signed By: <Electronically signed by Bob Neff Jr, DO inOV> 12/29/22 1457 us Amanda Montiel MD IMG BI PROCEDURES Final Result documented in this encounter Visit Diagnoses Not on filedocumented in this encounter Care Teams Agile Coach Relationship Specialty Start Date End Date Simón Davidson MD [address] [place] [address] PCP - General Pediatric Neuropsychologist 01/16/24 01/23/24 Diony Sharma MD [address] [place] [address] PCP - General Internal Medicine 01/24/24 Kenyetta Dove MD [address] [place] [address] Referring Physician Endocrinology 08/01/24 Simón Ozuna MD [address] [facility] [place] [address] Referring Physician Urology 08/01/24 Amanda Montiel MD [address] [place] [address] Obstetrics and Gynecology 08/01/24 Krish Hodge MD [address] [place] [address] Referring Physician Ophthalmology 08/01/24 Beny Hoskins MD [address] [place] [address] Referring Physician Gastroenterology 08/01/24 [facility] 08/01/24 documented as of this encounter
--- OUTSIDE RECORDS SUMMARY | 2024-12-21 09:14 | XMS_ITS | Encounter Summary ---
Author Organization [facility] Address [address] [place] [address] Care Team Providers Care Top Taper Machine Name Role Phone Diony Sharma MD Primary Care Provider [phone] Kenyetta Dove MD Unavailable [phone] Simón Ozuna MD Unavailable [phone] Amanda Montiel MD Unavailable [phone] Krish Hodge MD Unavailable [phone] Beny Hoskins MD Unavailable [phone] Encounter Details Date Type Department Care Team (Late st Contact Info) Description 02/22/2024 Orders Only [facility] [address] [place] [address] Kenyetta Dove MD [address] [place] [address] Social History Tobacco Use Types Packs/Day Years [...] IM [address] [place] [address] 02/12/2025 11:10 AM EDT Office Visit [facility] [address] [place] [address] Kenyetta Dove MD [address] [place] [address] documented as of this encounter Procedures Procedure Name Priority Date/Time Associated Diagnosis Comments T3, FREE Routine 02/22/2024 8:38 AM EDT TSH Routine 02/22/2024 8:38 AM EDT T4, FREE Routine 02/22/2024 8:38 AM EDT documented in this encounter Results * T4, free (02/22/2024 8:38 AM EDT) Blood Venous blood specimen / Unknown Kenyetta Dove MD LAB BLOOD ORDERABLES Final Re sult * TSH (02/22/2024 8:38 AM EDT) Blood Venous blood specimen / Unknown Kenyetta Dove MD LAB BLOOD ORDERABLES Final Re sult * T3, free (02/22/2024 8:38 AM EDT) Blood Venous blood specimen / Unknown us Kenyetta Dove MD LAB BLOOD ORDERABLES Final Re sult documented in this encounter Visit Diagnoses Not on filedocumented in this encounter Care Teams Top Taper Machine Relationship Specialty Start Date End Date Diony Sharma MD [address] [place] [address] PCP - General Internal Medicine 01/24/24 Kenyetta Dove MD [address] [place] [address] Referring Physician Endocrinology 08/01/24 Simón Ozuna MD [address] [place] [address] Referring Physician Urology 08/01/24 Amanda Montiel MD [address] [place] [address] Obstetrics and Gynecology 08/01/24 Krish Hodge MD [address] [place] [address] Referring Physician Ophthalmology 08/01/24 Beny Hoskins MD [address] [place] [address] [address] [place] [address] Referring Physician Gastroenterology 08/01/24 [facility] 08/01/24 documented as of this encounter
--- OUTSIDE RECORDS SUMMARY | 2024-12-21 09:15 | XMS_ITS | Clinical Summary ---
Author Organization [facility] Address [address] [place] [address] Care Team Providers Care Mailroom Supervisor Name Role Phone Diony Sharma MD Primary Care Provider [phone] Kenyetta Dove MD Unavailable [phone] Simón Ozuna MD Unavailable [phone] Amanda Montiel MD Unavailable [phone] Krish Hodge MD Unavailable [phone] Beny Hoskins MD Unavailable [phone] Allergies No known active allergies Medications B Vfmrgxt-Opmpej-QG (Super Quints B-50) tablet Take by mouth Act cecelia lubiprostone (Amitiza) 24 MCG capsule Take 24 mcg by mouth Daily as needed Active magnesium oxide (Mag-Ox) 400 MG tablet Take 400 mg by mouth in the morning and 400 mg in the evening. Active melatonin 10 MG tablet Take by mouth Active Multiple Vitamin (Multi Vitamin Daily) tablet Take by mouth Ac tive Turmeric (QC TUMERIC COMPLEX PO) Take by mouth Active COLLAGEN PO Take by mouth Acti ve ferrous sulfate 325 (65 Fe) MG tablet Take 325 mg by mouth in the morning. Take with meals. Active propranolol (Inderal) 20 MG tablet Take 20 mg by mouth in the morning and 20 mg before bedtime. Active Probiotic Product (PRO-BIOTIC BLEND PO) Take by mouth Active liothyronine (Cytomel) 5 MCG tabletIndications :Acquired hypothyroidism Take 1 tablet (5 mcg) by mouth Daily 90 tablet 1 024 Active escitalopram (Lexapro) 20 MG tablet Take 20 mg by mouth Daily Active levothyroxine (Synthroid, Levoxyl) 125 MCG tabletIndications :Postoperative hypothyroidism Take 1 tablet (125 mcg) by mouth Daily 90 tablet 3 025 2025 Active cholecalciferol (Vitamin D-3) 50 MCG (1999 UT) capsuleIndication s:Primary osteoarthritis involving multiple joints Take 1 capsule (50 mcg) by mouth in the morning. 30 capsule 11 Active metroNIDAZOLE (Metrogel) 0.75 % gelIndications:Ro sacea Apply twice daily to rosacea for 8 weeks. 45 g 025 2025 Active nystatin (Mycostatin) ointmentIndicatio ns:Cutaneous Candidiasis Apply thin film BID prn irritation 30 g 1 Active losartan-hydroCHL OROthiazide (Hyzaar) 100-12.5 MG tablet Take 1 tablet by mouth Daily Active dilTIAZem XR (Dilacor XR) 240 MG 24 hr capsule Take 240 mg by mouth Daily 2024 Discontinued(T herapy completed) furosemide (Lasix) 40 MG tabletIndications :Bilateral lower extremity edema Take 1 tablet (40 mg) by mouth in the morning and 1 tablet (40 mg) at noon. 60 tablet 025 2024 Discontinued potassium chloride CR (Klor-Con M10) 10 MEQ ER tabletIndications :Bilateral lower extremity edema Take 2 tablets (20 mEq) by mouth Daily Do not crush or chew. 60 tablet 025 2024 Discontinued cephalexin (Keflex) 500 MG capsuleIndication s:Cellulitis of right lower extremity Take 1 capsule (500 mg) by mouth in the morning and 1 capsule (500 mg) in the evening and 1 capsule (500 mg) before bedtime. Do all this for 7 days. 21 capsule 025 2024 Additional Information Patient not taking.Reported on 12/06/2024 potassium chloride CR (Klor-Con M10) 10 MEQ ER tabletIndications :Bilateral lower extremity edema Take 1 tablet (10 mEq) by mouth Daily Do not crush or chew. 025 2024 Discontinued(T herapy completed) furosemide (Lasix) 40 MG tabletIndications :Bilateral lower extremity edema Take 1 tablet (40 mg) by mouth Daily 025 2024 Discontinued(T herapy completed) dilTIAZem CD (Cardizem CD) 240 MG 24 hr capsule Take 240 mg by mouth Daily 025 2024 Discontinued(T herapy completed) minocycline 50 MG capsule TAKE 1 CAPSULE BY MOUTH EVERY DAY WITH FOOD 025 2024 Discontinued(T herapy completed) Hospital, Clinic, or Other Facility Administered Medication Ordered Dose Route Frequency Start Date End Date Status iopamidol (Isovue-300) 61 % injection 100 mLIndications:Vitamin D deficiency 100 mL IV Once in imaging 12/19/2024 12/19/2024 Ended Active Problems Problem Noted Date Diagnosed Date Renal cyst, right 12/20/2024 Overview (12/20/2024): [address] abd/pelvis 11/2024 Hepatomegaly 12/20/2024 Pulmonary hypertension 11/09/2024 Menopausal state 08/15/2024 Iron deficiency anemia 08/04/2024 Nonscarring hair loss, unspecified 02/20/2024 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 02/20/2024 Vitamin D deficiency 01/24/2024 Acquired hypothyroidism 01/24/2024 Irritable bowel syndrome with constipation 01/23 Urinary retention 01/24/2024 Mixed stress and urge urinary incontinence 01/23 Fibromyalgia 01/24/2024 Primary osteoarthritis involving multiple joints 01/24/2024 SANDRA (generalized anxiety disorder) 01/24/2024 Moderate major depression 01/24/2024 Essential hypertension 01/24/2024 History of anemia 01/24/2024 Chronic bilateral thoracic back pain 01/24/2024 Encounters Date Type Department Care Team Description 12/20/2024 3:00 PM EDT Office Visit [facility] [address] [place] [id number] Shilpa Menendez, MARITZA Bilateral lower extremity edema (Primary Dx); Hepatomegaly 12/20/2024 Travel 12/20/2024 Results Follow-Up [facility] [address] [place] [address] Shilpa Menendez PA 12/19/2024 11:45 AM EDT Ancillary Procedure [facility] [address] [place] [address] Vitamin D deficiency (Primary Dx) 12/19/2024 Travel 12/13/2024 10:45 AM EDT Office Visit [facility] [address] [place] [address] Diony Sharma MD Bilateral lower extremity edema (Primary Dx); Pulmonary hypertension (HCC); Dyspnea, unspecified type; Essential hypertension ; Medicare annual wellness visit, subsequent; ACP (advance care planning); Obstructive sleep apnea syndrome; Pain of upper abdomen 12/13/2024 Travel 12/10/2024 Results Follow-Up [facility] [address] [place] [address] Omid Stevens, PROJECT DRILLING ENGINEER 12/10/2024 Results Follow-Up [facility] [address] [place] [address] Omid Stevens, PROJECT DRILLING ENGINEER 12/07/2024 External Result Encounter [facility] External Department Unsolicited Omid Stevens, PROJECT DRILLING ENGINEER 12/07/2024 External Result Encounter [facility] External Department Unsolicited Omid Stevens, PROJECT DRILLING ENGINEER 12/07/2024 External Result Encounter [facility] External Department Unsolicited Omid Stevens, PROJECT DRILLING ENGINEER 12/07/2024 External Result Encounter [facility] External Department Unsolicited Omid Stevens, PROJECT DRILLING ENGINEER 12/07/2024 External Result Encounter [facility] External Department Unsolicited Omid Stevens, PROJECT DRILLING ENGINEER 12/07/2024 External Result Encounter [facility] External Department Unsolicited Omid Stevens, PROJECT DRILLING ENGINEER 12/07/2024 External Result Encounter [facility] External Department Unsolicited Omid Stevens, PROJECT DRILLING ENGINEER 12/07/2024 External Result Encounter [facility] External Department Unsolicited Omid Stevens, PROJECT DRILLING ENGINEER 12/06/2024 3:30 PM EDT Office Visit [facility] [address] [place] [address] Omid Stevens, PROJECT DRILLING ENGINEER Bilateral lower extremity edema (Primary Dx); Pulmonary hypertension (HCC); Dyspnea, unspecified type; Snoring; Anasarca; Essential hypertension ; History of anemia; Hypoalbuminemia; Hypoproteinemia (HCC) 12/06/2024 Travel 11/28/2024 Telephone [facility] [address] [place] [address] Faustino ZuñigaKENAI, MA 11/21/2024 10:15 AM EDT Office Visit [facility] [address] [place] [address] Dalia Mar, PROJECT DRILLING ENGINEER Bilateral lower extremity edema (Primary Dx); Essential hypertension ; Pulmonary hypertension (HCC); Cellulitis of right lower extremity; Snoring 11/21/2024 Results Follow-Up [facility] [address] [place] [address] Dalia Mar, PROJECT DRILLING ENGINEER Bilateral lower extremity edema; Sciatica, unspecified laterality 11/21/2024 Travel 11/09/2024 External Result Encounter [facility] External Department Unsolicited Shilpa Menendez PA 10/16/2024 Telephone [facility] [address] [place] [address] Amanda Montiel MD 10/16/2024 Telephone [facility] [address] [place] [address] Liliya Escobedo LPN 10/16/2024 Orders Only [facility] [address] [place] [address] Amanda Montiel MD Acute vaginitis (Primary Dx) 10/16/2024 Orders Only [facility] [address] [place] [address] Kenyetta Dove MD Abnormal cortisol level (Primary Dx) 10/09/2024 10:15 AM EDT Office Visit [facility] [address] [place] [address] Shilpa Menendez, PA Lower extremity edema (Primary Dx); SOB (shortness of breath) on exertion; Bilateral leg edema; Rosacea 10/09/2024 Results Follow-Up [facility] [address] [place] [address] Shilpa Menendez, PA Bilateral leg edema; Venous insufficiency 10/09/2024 Travel 09/25/2024 Telephone [facility] [address] [place] [address] Fadumo Montes LPN from Last 3 Months Immunizations Immunization Administration Dates Next Due DTP 08/01/1979,04/18/1979,05/13/1978 DTaP, Unspecified 10/11/1979 Hep B, adult 06/05/2001,12/28/2000,11/14/2000 IPV 10/11/1979,08/01/1979,05/13/1978 ,1977 MMR 11/21/2000,01/07/1983 Family History Medical History Relation Name Comments Heart disease Brother x 3 Lymphoma Maternal Grandmother Depression Mother Diabetes type II Mother Hypertension Mother Breast cancer Paternal Grandmother Mental illness Son x 2 Relation Name Status Comments Brother x 3 Alive Daughter x 2 Alive Father Alive Maternal Grandmother Mother Alive Paternal Grandmother Sister x 1 Alive Son x 2 Alive Social History Tobacco Use Types Packs/Day Years [...] PM EDT Temperature - - Respiratory Rate 16 08/14/2024 10:45 AM EDT Oxygen Saturation 97% 12/20/2024 3:10 PM EDT Inhaled Oxygen Concentration - - Weight 147 kg (323 lb 9.6 oz) 12/20/2024 3:10 PM EDT Height 170.2 cm (5' 7 ) 12/20/2024 3:10 PM EDT Body Mass Index 50.68 12/20/2024 3:10 PM EDT Plan of Treatment Upcoming Encounters Date Type Department Care Team (Late st Contact Info) Description 02/06/2025 1:00 PM EDT Office Visit [facility] [address] [place] [phone] 02/12/2025 11:10 AM EDT Office Visit [facility] [address] [place] [address] Kenyetta Dove MD [address] [place] [address] Health Maintenance Due Date Last Done Comments CT Colonography 1977 FIT-DNA 1977 FIT 1975 FOBT 1975 Sigmoidoscopy 1975 Pap Smear 04/04/2001 04/04/1998 Colonoscopy 08/21/2022 08/21/2012 Colorectal Cancer Screening 08/21/2022 Cervical Cancer Screening 11/08/2023 HPV/Cotest 11/08/2023 11/07/2018 Mammogram 01/19/2025 01/20/2024, 12/29/2022 Influenza Vaccine (#1) 2025 Medicare Annual Wellness (AWV) 12/13/2025 12/13/2024 , 12/31/2021 Procedures Procedure Name Priority Date/Time Associated Diagnosis Comments CT ABDOMEN PELVIS W IV CONTRAST Routine 12/19/2024 11:54 AM EDT Bilateral lower extremity edema Pain of upper abdomen XR CHEST 2 VIEWS 12/07/2024 11:3 7 AM EDT FREE K+L LT CHAINS, QN, S Routine 12/07/2024 9:51 AM EDT PROTEIN ELECTROPHORESIS, SERUM Routine 12/07/2024 9:51 AM EDT WILL SCREEN W/REFLEX Routine 12/07/2024 9 :51 AM EDT RHEUMATOID FACTOR Routine 12/07/2024 9:5 1 AM EDT HEMOGLOBIN A1C WITH EAG Routine 12/07/2024 9:51 AM EDT MICROALBUMIN / CREATININE URINE RATIO Routine 12/07/2024 9:51 AM EDT SED RATE BY MODIFIED WESTERGREN Routine 12/07/2024 9:51 AM EDT MAGNESIUM Routine 12/07/2024 9:51 AM EDT COMPREHENSIVE METABOLIC PANEL Routine 12/07/2024 9:51 AM EDT HIGH SENSITIVITY CRP Routine 12/07/2024 9:51 AM EDT URINALYSIS REFLEX Routine 12/07/2024 9:5 1 AM EDT XR LUMBAR SPINE 2-3 VIEWS Routine 11/29/2024 2:02 PM EDT Bilateral lower extremity edema Sciatica, unspecified laterality T3, FREE Routine 11/29/2024 9:06 AM EDT Postoperative hypothyroidism TSH Routine 11/27/2024 3:08 PM EDT Postoperative hypothyroidism T4, FREE Routine 11/27/2024 3:08 PM EDT Postoperative hypothyroidism BASIC METABOLIC PANEL Routine 11/27/2024 1:05 PM EDT Lower extremity edema Bilateral leg edema B-TYPE NATRIURETIC PEPTIDE Routine 11/21/2024 11:44 AM EDT Bilateral lower extremity edema BASIC METABOLIC PANEL Routine 11/21/2024 11:44 AM EDT Bilateral lower extremity edema TRANSTHORACIC ECHO (TTE) COMPLETE 11/09/2024 8:58 AM EDT ACTH STIMULATION, 3 TIME POINTS Routine 10/29/2024 9:22 AM EDT Abnormal cortisol level ACTH, PLASMA Routine 10/25/2024 10:56 AM EDT Abnormal cortisol level B-TYPE NATRIURETIC PEPTIDE Routine 10/09/2024 11:28 AM EDT SOB (shortness of breath) on exertion Bilateral leg edema COMPREHENSIVE METABOLIC PANEL Routine 10/09/2024 11:28 AM EDT SOB (shortness of breath) on exertion Bilateral leg edema MICROALBUMIN / CREATININE URINE RATIO Routine 10/09/2024 11:28 AM EDT SOB (shortness of breath) on exertion Bilateral leg edema MAMMO 3D,BILATERAL SCREENING MAMMOGRAM WITH TOMOSY Routine 01/20/2024 10:01 AM EDT THINPREP TIS PAP REFLEX HPV MRNA E6/E7 (83535) Routine 11/07/2018 from Last 3 Months or Most Recently Relevant to Health Maintenance Results * CT abdomen pelvis w IV contrast (12/19/2024 11:54 AM EDT) Anatomical Region Laterality Modality Body, Pelvis, Abdomen Computed T omography 12/19/2024 2:50 PM EDT Impressions 12/19/2024 2:56 PM EDT No acute abdominopelvic process. Hepatomegaly. ELECTRONICALLY SIGNED BY: DO Juan Carlos Pereira 12/19/2024 2:56 PM EDT EXAM: CT ABDOMEN [...] Hepatomegaly. ELECTRONICALLY SIGNED BY: Diony Wetzel DO Shilpa SALAS IMG CT PROCEDURES Final Resu lt * XR chest 2 views (12/07/2024 11:37 AM EDT) Anatomical Region Laterality Modality Chest Radiographic Quiana ging 12/07/2024 11:3 7 AM EDT Impressions 12/07/2024 11:40 AM EDT NO ACUTE CARDIOPULMONARY ABNORMALITY. Impression dictated by: Rizwana Thacker M.D. 12/07/2024 11:37 AM Dictation Location: [place] [address] Transcribed By: [facility] 12/07/24 1137 Dictated By: Rizwana Thacker MD 12/07/24 1137 Signed By: <Electronically signed by MD Rizwana Thacker in OV> 12/07/24 1137 Narrative 12/07/2024 11:40 AM EDT [facility] [place] [address] XRay Report Signed Patient: Lupe Pickard MR#: [id number] : 1975 Acct:[id number] Age/Sex: 49 / F ADM Date: 12/07/24 Loc: XD Room: Type: [facility] Attending Dr: Omid Stevens RN, MSN, ANP-C Copies to: OMID STEVENS RN, MSN Ordering Provider: OMID STEVENS RN, MSN Date of Service: 12/07/24 XR/XR chest 2V*: R60.0,I27.20,R06.00,R60.1,I10,Z86 PA AND LATERAL CHEST: CLINICAL HISTORY: Bilateral lower extremity swelling and shortness of breath COMPARISON: 07/22/2023 There is no focal parenchymal consolidation, effusion or pneumothorax. The cardiac, hilar and mediastinal silhouettes are within normal limits. There is no vascular congestion. The visualized bony thorax is intact. There is slight dextroscoliotic curvature as well as mild endplate spurring. XR/XR chest 2V* Procedure Note Radiology, Radiologist, - 12/07/2024 [facility] Main [place] [id number] XRay Report Signed Patient: Lupe Pickard MMR#: [id number] : 1975Acct:[id number] Age/Sex: 49 / FADM Date: 12/07/24 Loc: XD Room:Type: [facility] Attending Dr: Omid Stevens RN, MSN, ANP-C Copies to: OMID STEVENS RN, MSN Ordering Provider: OMID STEVENS RN, MSN Date of Service: 12/07/24 XR/XR chest 2V*:R60.0,I27.20,R06.00,R60.1,I10,Z86 PA AND LATERAL CHEST: CLINICAL HISTORY: Bilateral lower extremity swelling and shortness ofbreath COMPARISON: 07/22/2023 There is no focal parenchymal consolidation, effusion or pneumothorax.The cardiac, hilar and mediastinal silhouettes are within normal limits. There is no vascularcongestion. The visualized bony thorax is intact. There is slight dextroscolioticcurvature as well as mild endplate spurring. XR/XR chest 2V* IMPRESSION: NO ACUTE CARDIOPULMONARY ABNORMALITY. Impression dictated by: Rizwana Thacker M.D. 12/07/2024 11:37 AM Dictation Location: [place] [address] Transcribed By: [facility] 12/07/24 1137 Dictated By: Rizwana Thacker MD 12/07/24 1137 Signed By: <Electronically signed by MD Rizwana Thacker in OV> 12/07/24 1137 Omid Stevens PROJECT DRILLING ENGINEER IMG XR PROCEDURES Final Resu lt * FREE K+L LT CHAINS, QN, S (12/07/2024 9:51 AM EDT) FREE KAPPA LIGHT CHAINS, S 12.3 3.3 - 19.4 mg/L 12/10/2024 2:36 PM EDT [facility] FREE LAMBDA LIGHT CHAINS, S 14.2 5.7 - 26.3 mg/L 12/10/2024 2:36 PM EDT [facility] KAPPA/LAMBDA RATIO, S 0.87 0.26 - 1.65 12/10/2024 2:36 PM EDT [facility] Comment: Performed at: [address] [id number] Infrastructure Technician: Ramirez Ca PhD, Phone: [phone] Other Topography unknown / Unknown 12/07/2024 9:51 AM EDT 12/07/2024 9:51 AM EDT us Omid Stevens PROJECT DRILLING ENGINEER LAB BLOOD ORDERABLES Final R esult Performing Organization Address City/[facility]/ZIP Co de Phone Number [address] [address], * (ABNORMAL) Hemoglobin a1c with eag (12/07/2024 9:51 AM EDT) HEMOGLOBIN A1C 5.7(H) 4.3 - 5.6 % 12/07/2024 12:35 PM EDT [facility] Comment: Increased risk for diabetes: 5.7 - 6.4 diabetes: >6.4 glycemic control for adults with diabetes: <7.0 ESTIMATED AVERAGE GLUCOSE 117 mg/dL 12/07/2024 12:35 PM EDT [facility] Blood (Blood) 12/07/2024 9:5 1 AM EDT 12/07/2024 9:51 AM EDT us Omid Stevens PROJECT DRILLING ENGINEER LAB BLOOD ORDERABLES Final R esult Performing Organization Address City/[facility] Co de Phone Number [address] [address], [facility] [address] [place] [address] * Microalbumin / creatinine urine ratio (12/07/2024 9:51 AM EDT) Only the most recent of2 resultswithin the time period is included. MICROALBUMIN, URINE <0.7 0.0 - 1.8 mg/dL 12/07/2024 11:33 AM EDT [facility] CREATININE, URINE (RANDOM) 75.00 mg/dL 12/07/2024 11:30 AM EDT [facility] Comment:No reference range e stablished MICROALBUMIN/CR EATININE RATIO Test not performed 0.0 - 30.0 mg/g 12/07/2024 11:33 AM EDT [facility] Other 12/07/2024 9:51 AM EDT 12/07/2024 9:51 AM EDT us Omid Stevens PROJECT DRILLING ENGINEER LAB URINE ORDERABLES Final R esult [facility] [address] [place] [address], [facility] [address] [place] [address] * Urinalysis with reflex microscopic (12/07/2024 9:51 AM EDT) COLOR,URINE Light-Yellow Yellow 12/07/2024 10:59 AM EDT [facility] APPEARANCE,URI NE Clear Clear 12/07/2024 10:59 AM EDT [facility] SPECIFICY GRAVITY,URINE 1.023 1.001 - 1.030 12/07/2024 10:59 AM EDT [facility] PH,URINE 7.0 5.0 - 9.0 12/07/2024 10:59 AM EDT [facility] LEUKOCYTE ESTERASE,URINE Negative Negative 12/07/2024 10:59 AM EDT [facility] NITRITE,URINE Negative Negative 12/07/2024 10:59 AM EDT [facility] PROTEIN,URINE Negative Negative mg/dL 12/07/2024 10:59 AM EDT [facility] GLUCOSE,URINE (UA) Normal Normal mg/dL 12/07/2024 10:59 AM EDT [facility] KETONES,URINE Negative Negative 12/07/2024 10:59 AM EDT [facility] UROBILINOGEN,U RINE Normal Normal mg/dL 12/07/2024 10:59 AM EDT [facility] BILIRUBIN,URIN E Negative Negative 12/07/2024 10:59 AM EDT [facility] OCCULT BLOOD,URINE Negative Negative 12/07/2024 10:59 AM EDT [facility] RBC,URINE 1-2 0 - 4 [HPF] 12/07/2024 11:00 AM EDT [facility] WBC,URINE 1-2 0 - 4 [HPF] 12/07/2024 11:00 AM EDT [facility] SQUAMOUS EPITHELIAL CELL,URINE 1-2 0 - 2 [HPF] 12/07/2024 11:00 AM EDT [facility] BACTERIA,URINE None Seen None Seen [HPF] 12/07/2024 11:00 AM EDT [facility] HYALINE CASTS,URINE None 0 - 8 [LPF] 12/07/2024 11:00 AM EDT [facility] MUCUS,URINE Rare [LPF] 12/07/2024 11:00 AM EDT [facility] Other 12/07/2024 9:51 AM EDT 12/07/2024 9:51 AM EDT Narrative [facility] - 12/07/2024 11:00 AM EDT Name Collection Type:: Clean-Voided Midstream Omid Stevens PROJECT DRILLING ENGINEER LAB URINE ORDERABLES Final R esult Performing Organization Address City/[facility]/ZIP Co de Phone Number [place] [phone], [place] [phone] * (ABNORMAL) Sedimentation rate, automated (12/07/2024 9:51 AM EDT) ERYTHROCYTE SEDIMENTATION RATE 22(H) 0 - 19 12/07/2024 11:25 AM EDT [facility] Blood (Blood) 12/07/2024 9:5 1 AM EDT 12/07/2024 9:51 AM EDT Omid Stevens PROJECT DRILLING ENGINEER LAB BLOOD ORDERABLES Final R esult [address] [address], [place] [phone] * Rheumatoid factor (12/07/2024 9:51 AM EDT) RHEUMATOID FACTOR 10.4 <14.0 12/08/2024 4:36 AM EDT [facility] Comment: Performed at: - [address] [id number] Infrastructure Technician: Ramirez Ca PhD, Phone: [phone] Other Topography unknown / Unknown 12/07/2024 9:51 AM EDT 12/07/2024 9:51 AM EDT Omid Stevens PROJECT DRILLING ENGINEER LAB BLOOD ORDERABLES Final R esult Performing Organization Address City/[facility] [place] [place] [address], * (ABNORMAL) High sensitivity CRP (12/07/2024 9:51 AM EDT) HIGH SENSITIVE CRP 15.7(H) 0.0 - 0.9 mg/L 12/07/2024 11:19 AM EDT [facility] Comment: Cardiovascular Risk Classification (AHA/CDC) hsCRP < 1.0 [...] this marker for estimation of CVD risk. Other Topography unknown / Unknown 12/07/2024 9:51 AM EDT 12/07/2024 9:51 AM EDT Omid Stevens PROJECT DRILLING ENGINEER LAB BLOOD ORDERABLES Final R esult Performing Organization Address [facility] [place] [address], [facility] [address] [place] [phone] * WILL (12/07/2024 9:51 AM EDT) ANTINUCLEAR ABS, IFA Negative . 12/10/2024 9:08 AM EDT [facility] Comment: Negative <1:80 Borderline 1:80 Positive >1:80 ICAP nomenclature: AC-0 For more information about Hep-2 cell patterns use ANApatterns.org, the official website for the International Consensus on Antinuclear Antibody (WILL) Patterns (ICAP). Performed at: - [facility], [place], [place] [id number] Infrastructure Technician: Ramirez Ca PhD, Phone: [phone] Other Topography unknown / Unknown 12/07/2024 9:51 AM EDT 12/07/2024 9:51 AM EDT us Omid Stevens PROJECT DRILLING ENGINEER LAB BLOOD ORDERABLES Final R esult [facility] [address] [place] [address], * Protein electrophoresis, serum (12/07/2024 9:51 AM EDT) TOTAL PROTEIN, SERUM 6.4 6.0 - 8.5 g/dL 12/10/2024 2:36 PM EDT [facility] ALBUMIN, SERUM 3.3 2.9 - 4.4 g/dL 12/10/2024 2:36 PM EDT [facility] THOOP-8-SBOHGMVM 0.2 0.0 - 0.4 g/dL 12/10/2024 2:36 PM EDT [facility] HCWEX-0-QOLEFCVY 0.9 0.4 - 1.0 g/dL 12/10/2024 2:36 PM EDT [facility] BETA GLOBULIN 1.1 0.7 - 1.3 g/dL 12/10/2024 2:36 PM EDT [facility] GAMMA GLOBULIN 0.9 0.4 - 1.8 g/dL 12/10/2024 2:36 PM EDT [facility] M-SPIKE Not Observed Not Observed g/dL 12/10/2024 2:36 PM EDT [facility] GLOBULIN, TOTAL 3.1 2.2 - 3.9 g/dL 12/10/2024 2:36 PM EDT [facility] A/G RATIO 1.1 0.7 - 1.7 12/10/2024 2:36 PM EDT [facility] SPE-NOTE Comment . 12/10/2024 2:36 PM EDT [facility] Comment: Protein electrophoresis scan will follow via computer, mail, or floral designer delivery. Other Topography unknown / Unknown 12/07/2024 9:51 AM EDT 12/07/2024 9:51 AM EDT us Omid Stevens PROJECT DRILLING ENGINEER LAB BLOOD ORDERABLES Final R esult [place] [id number], * Magnesium (12/07/2024 9:51 AM EDT) MAGNESIUM 1.9 1.9 - 2.7 mg/dL 12/07/2024 11:21 AM EDT [facility] Other Topography unknown / Unknown 12/07/2024 9:51 AM EDT 12/07/2024 9:51 AM EDT Omid Chávez Rodney PROJECT DRILLING ENGINEER LAB BLOOD ORDERABLES Final R esult Performing Organization Address [facility] Co de Phone Number [facility] [address] [place] [address], [facility] [address] [place] [id number] * (ABNORMAL) Comprehensive metabolic panel (12/07/2024 9:51 AM EDT) Only the most recent of2 resultswithin the time period is included. Glucose 109(H) 70 - 100 mg/dL 12/07/2024 11:21 AM EDT [facility] Comment: Random Glucose Reference Range is dependent on time and content of last meal. Glucose of more than 200 mg/dL in a nonstressed, ambulatory subject supports the diagnosis of Diabetes Mellitus. ADA recommended reference range BUN 12 7 - 25 mg/dL 12/07/2024 11:21 AM EDT [facility] CREATININE 0.50(L) 0.60 - 1.20 mg/dL 12/07/2024 11:21 AM EDT [facility] ESTIMATED GFR >60.0 12/07/2024 11:21 AM EDT [facility] Sodium 139 136 - 145 mmol/L 12/07/2024 11:21 AM EDT [facility] Potassium, Bld 4.2 3.5 - 5.1 mmol/L 12/07/2024 11:21 AM EDT [facility] Chloride 101 98 - 107 mmol/L 12/07/2024 11:21 AM EDT [facility] Carbon Dioxide 31.0 21.0 - 31.0 mmol/L 12/07/2024 11:21 AM EDT [facility] Anion Gap 11.2 6.0 - 15.0 12/07/2024 11:21 AM EDT [facility] Calcium 9.0 8.6 - 10.3 mg/dL 12/07/2024 11:21 AM EDT [facility] TOTAL PROTEIN 6.5 6.4 - 8.9 g/dL 12/07/2024 11:21 AM EDT [facility] ALBUMIN LEVEL 3.8 3.5 - 5.7 g/dL 12/07/2024 11:21 AM EDT [facility] GLOBULIN 2.7 g/dL 12/07/2024 11:21 AM EDT [facility] ALBUMIN/GLOBULIN RATIO 1.4 12/07/2024 11:21 AM EDT [facility] BILIRUBIN,TOTAL 0.4 0.3 - 1.0 mg/dL 12/07/2024 11:21 AM EDT [facility] ASPARTATE AMINO TRANSFERASE 20 13 - 39 U/L 12/07/2024 11:21 AM EDT [facility] ALANINE AMINOTRANSFERASE 29 7 - 52 U/L 12/07/2024 11:21 AM EDT [facility] ALKALINE PHOSPHATASE 56 34 - 104 U/L 12/07/2024 11:21 AM EDT [facility] Other Topography unknown / Unknown 12/07/2024 9:51 AM EDT 12/07/2024 9:51 AM EDT us Omid Stevens PROJECT DRILLING ENGINEER LAB BLOOD ORDERABLES Final R esult [facility] [address] [place] [address], [facility] [address] [place] [address] * XR lumbar spine 2 or 3 views (11/29/2024 2:02 PM EDT) Anatomical Region Laterality Modality Spine, L-spine Radiographic Quiana ging 11/29/2024 2:02 PM EDT Impressions 11/29/2024 2:06 PM EDT Degenerative changes notably lower lumbar spine. Impression dictated by: Larry Perez M.D. 11/29/2024 2:03 PM Dictation Location: [place] [address] Transcribed By: [facility] 11/29/24 1403 Dictated By: Larry Perez MD 11/29/24 1402 Signed By: <Electronically signed by Larry Perez MD in [place]> 11/29/24 1403 Narrative 11/29/2024 2:06 PM EDT [facility] [place] [address] XRay Report Signed Patient: Lupe Pickard MR#: [id number] : 1975 Acct:[id number] Age/Sex: 49 / F ADM Date: 11/29/24 Loc: XD Room: Type: REG CLI Attending Dr: Dalia Mar PROJECT DRILLING ENGINEER-C Copies to: Dalia Mar NP Ordering Provider: Dalia Mar NP Date of Service: 11/29/24 XR/XR lumbar spine 2-3V*: Lumbar spine pain 2 views lumbar spine INDICATION: Presurgery testing for neurostimulator COMPARISON: MRI lumbar spine 06/18/2024 FINDINGS: Mild dextrocurvature. Lumbar vertebral heights maintained. Mild multilevel anterior vertebral space narrowing and endplate osteophytosis identified. Anterolisthesis L4 upon identified 3 mm. Facet arthropathy L4-S1 greatest L5-S1. XR/XR lumbar spine 2-3V* Procedure Note Radiology, Radiologist, MD - 11/29/2024 [place] [id number] XRay Report Signed Patient: Lupe Pickard MMR#: [id number] : 1975Acct:[id number] Age/Sex: 49 / FADM Date: 11/29/24 Loc: XD Room:Type: REG CLI Attending Dr: Dalia Mar PROJECT DRILLING ENGINEER-C Copies to: Dalia Mar NP Ordering Provider: Dalia Mar NP Date of Service: 11/29/24 XR/XR lumbar spine 2-3V*: Lumbar spine pain 2 views lumbar spine INDICATION: Presurgery testing for neurostimulator COMPARISON: MRI lumbar spine 06/18/2024 FINDINGS: Mild dextrocurvature. Lumbar vertebral heights maintained.Mild multilevel anterior vertebral space narrowing and endplate osteophytosis identified.Anterolisthesis L4 upon identified 3 mm. Facet arthropathy L4-S1 greatest L5-S1. XR/XR lumbar spine 2-3V* IMPRESSION: Degenerative changes notably lower lumbar spine. Impression dictated by: Larry Perez M.D. 11/29/2024 2:03 PM Dictation Location: [place] [address] Transcribed By: [facility] 11/29/24 1403 Dictated By: Larry Perez MD 11/29/24 1402 Signed By: <Electronically signed by Larry Perez MD in [place]> 11/29/24 1403 Dalia Mar PROJECT DRILLING ENGINEER IMG XR PROCEDURES Final Resul t * T3, free (11/29/2024 9:06 AM EDT) Blood Venous blood specimen / Unknown Kenyetta Dove MD LAB BLOOD ORDERABLES Final Re sult Performing Organization Address City/[facility]/ZIP Co de Phone Number [facility] * TSH (11/27/2024 3:08 PM EDT) Blood Venous blood specimen / Unknown Kenyetta Dove MD LAB BLOOD ORDERABLES Final Re sult Performing Organization Address City/[facility] Co de Phone Number [facility] * T4, free (11/27/2024 3:08 PM EDT) Blood Venous blood specimen / Unknown Kenyetta Dove MD LAB BLOOD ORDERABLES Final Re sult [facility] * (ABNORMAL) Basic metabolic panel (11/27/2024 1:05 PM EDT) Only the most recent of2 resultswithin the time period is included. Glucose 72 70 - 100 mg/dL 11/27/2024 2:18 PM EDT [facility] Comment: Random Glucose Reference Range is dependent on time and content of last meal. Glucose of more than 200 mg/dL in a nonstressed, ambulatory subject supports the diagnosis of Diabetes Mellitus. ADA recommended reference range BUN 9 7 - 25 mg/dL 11/27/2024 2:18 PM EDT [facility] CREATININE 0.53(L) 0.60 - 1.20 mg/dL 11/27/2024 2:18 PM EDT [facility] ESTIMATED GFR >60.0 11/27/2024 2:18 PM EDT [facility] Sodium 139 136 - 145 mmol/L 11/27/2024 2:18 PM EDT [facility] Potassium, Bld 4.2 3.5 - 5.1 mmol/L 11/27/2024 2:18 PM EDT [facility] Chloride 101 98 - 107 mmol/L 11/27/2024 2:18 PM EDT [facility] Carbon Dioxide 31.9(H) 21.0 - 31.0 mmol/L 11/27/2024 2:18 PM EDT [facility] Anion Gap 10.3 6.0 - 15.0 11/27/2024 2:18 PM EDT [facility] Calcium 8.6 8.6 - 10.3 mg/dL 11/27/2024 2:18 PM EDT [facility] Other Topography unknown / Unknown 11/27/2024 1:05 PM EDT 11/27/2024 1:05 PM EDT Diony Sharma MD LAB BLOOD ORDERABLES Final Resu lt Performing Organization Address City/[facility]/ZIP Co de Phone Number [facility] [address] [place] [address], [address] [address] * B-type natriuretic peptide (11/21/2024 11:44 AM EDT) Only the most recent of2 resultswithin the time period is included. B-TYPE NATRIURETIC PEPTIDE 54.0 5 - 100 pg/mL 11/21/2024 12:35 PM EDT [facility] Other Venous blood specimen / Unknown 11/21/2024 11:44 AM EDT 11/21/2024 11:44 AM EDT us Dalia Mar PROJECT DRILLING ENGINEER LAB BLOOD ORDERABLES Final Re sult [address] [address], [address] [address] * Transthoracic echo (TTE) complete (11/09/2024 8:58 AM EDT) Anatomical Region Laterality Modality Heart Ultrasound 11/09/2024 8:58 AM EDT Narrative 11/09/2024 4:45 PM EDT [facility] Main [place] [address] [place], [place] [id number] Echocardiogram Signed Patient: Lupe Pickard MR#: [id number] : 1975 Acct:[id number] Age/Sex: 49 / F ADM Date: 11/09/24 Loc: Room: Type: [facility] Attending Dr: Shilpa Menendez PA-C Ordering Provider: Shilpa Menendez PA-C Date of Service: 11/09/24/ ECH/ECH echo transthoracic: EDEMA, SOB Copies to: Selina Valverde MD, FACC Shilpa Menendez PA-C BSA: 2.4 m2 BP: 141/89 [...] V1 max: 99.9 cm/sec (0.7-1.7m/s)MV E max mendel: 84.9 cm/sec(0.8-1.3m/s) MV A max mendel: 95.6 cm/sec(0.0-0.0m/s) MV E/A: 0.89 (<1.5) MMode/2D Measurements Calculations RVDd: 2.9 cm FS: 38.2 % Ao root area: LVOT diam: 2.1 cm TAPSE: 3.0 cm EDV(Teich): 8.2 cm2 LVOT area: 3.4 cm2 RV S Mendel: 126.8 ml 19.4 cm/sec ESV(Teich): 40.5 ml [...] max: E/E' lat: 7.2 MV P1/2t max mendel: 0.23 sec 111.3 cm/sec E/E' med: 7.6 107.5 cm/sec MV max PG: MV P1/2t: 65.1 msec 24.0 mmHg MV V2 mean: MVA(P1/2t): 3.4 cm2 54.8 cm/sec MV dec slope: MV mean P.4 cm/sec2 1.6 mmHg MV V2 VTI: 39.2 cm MVA(VTI): 2.1 cm2 __ Ao V2 max: LV V1 max PG: MR max mendel: TV max P.0 mmHg 153.2 cm/sec 4.0 mmHg 247.0 cm/sec Ao max PG: LV V1 mean PG: MR max P.4 mmHg 2.0 mmHg 24.4 mmHg Ao mean PG: LV V1 mean: 5.0 mmHg 64.4 cm/sec Ao V2 mean: LV V1 VTI: 24.5 cm 107.2 cm/sec Ao V2 VTI: 34.2 cm SANTOS(I,D): 2.4 cm2 SANTOS(V,D): 2.2 cm2 __ TR max mendel: 291.8 cm/sec TR max P.1 mmHg RAP systole: 5.0 mmHg Transcribed By: SCV Performed At: 11/09/24 0858 Signed By: Selina Valverde MD, [facility] 11/09/24 1644 Procedure Note Selina Valverde MD - 11/09/2024 [facility] [place] [address] Echocardiogram Signed Patient: Lupe Pickard MMR#: [id number] : 1975Acct:[id number] Age/Sex: 49 / FADM Date: 11/09/24 Loc: Room:Type: [facility] Attending Dr: Shilpa Menendez PA-C Ordering Provider: Shilpa Menendez PA-C Date of Service: 11/09/24/ ECH/ECH echo transthoracic: EDEMA, SOB Copies to: Selina Valverde MD, [facility] Shilpa Menendez PA-C BSA: 2.4 m2 BP: 141/89 mmHg HR: 71 Reason For Study: EDEMA, SOB History: HTN, COVID Interpretation Summary The left ventricular size, thickness and function are normal Ejection Fraction = 60-65%. A variety of Doppler measurements indicate impaired left ventricular relaxation, which is associated with grade I/IV or mild diastolicdysfunction. The left atrium appears mildly dilated. There is trace mitral regurgitation. There is mild tricuspid regurgitation. Right ventricular systolic pressure is elevated at 30-40mmHg. Right ventricular systolic pressure is consistent with mild pulmonary hypertension. When compared to study from 05/06/2020, mild pulmonary hypertension has developed Procedure/Quality: A two-dimensional transthoracic echocardiogram withcolor flow, Doppler and injection of contrast agent Definity was performed. The study was technically good in quality. When compared to study from05/06/2020, mild pulmonary hypertension has developed. Left Ventricle: The left ventricular size, thickness and function are normal. Ejection Fraction = 60-65%. A variety of Doppler measurementsindicate impaired left ventricular relaxation, which is associated with grade I/Evelyn mild diastolic dysfunction. Left Atrium: The left [...] tricuspid valve is normal in structure. There ismild tricuspid regurgitation. Right ventricular systolic pressure is elevatedat 30-40mmHg. Right ventricular systolic pressure is consistent with mild pulmonary hypertension. Pulmonic Valve: The pulmonic valve is not well seen, but is grosslynormal. Arteries: The aortic root is normal size. Pericardium/Pleura: No pericardial effusion seen. There is no pleural effusion. IVC/Hepatic Veins: The IVC is normal in size with an inspiratorycollapse of greater then 50%, suggesting normal right [...] V1 max: 99.9 cm/sec (0.7-1.7m/s)MV E max mendel: 84.9 cm/sec(0.8-1.3m/s) MV A max mendel: 95.6 cm/sec(0.0-0.0m/s) MV E/A: 0.89 (<1.5) MMode/2D Measurements Calculations RVDd: 2.9 cm FS: 38.2 % Ao root area: LVOT diam: 2.1 cm TAPSE: 3.0 cm EDV(Teich): 8.2 cm2 LVOT area: 3.4cm2 RV S Mendel: 126.8 ml 19.4 cm/sec ESV(Teich): 40.5 ml EF(Teich): 68.0 % __ LVLd ap4: 8.1 cm SV(MOD-sp4): LAV(MOD-sp4): LA A2 area: 20.9cm2 EDV(MOD-sp4): 62.5 ml 70.8 ml 141.0 ml LAV(MOD-sp2): LA A4 area: 24.0cm2 LVLs ap4: 7.8 cm 55.3 ml LA length (vol): ESV(MOD-sp4): 6.6 cm 78.5 ml LA vol: 64.9 ml EF(MOD-sp4): 44.4 % LA vol index: 27.0 ml/m2 Doppler Measurements Calculations MV dec time: MV V2 max: E/E' lat: 7.2 MV P1/2t max mendel: 0.23 sec 111.3 cm/sec E/E' med: 7.6 107.5 cm/sec MV max PG: MV P1/2t: 65.1msec 24.0 mmHg MV V2 mean: MVA(P1/2t): 3.4cm2 54.8 cm/sec MV dec slope: MV mean P.4 cm/sec2 1.6 mmHg MV V2 VTI: 39.2 cm MVA(VTI): 2.1 cm2 __ Ao V2 max: LV V1 max PG: MR max mendel: TV max P.0mmHg 153.2 cm/sec 4.0 mmHg 247.0 cm/sec Ao max PG: LV V1 mean PG: MR max P.4 mmHg 2.0 mmHg 24.4 mmHg Ao mean PG: LV V1 mean: 5.0 mmHg 64.4 cm/sec Ao V2 mean: LV V1 VTI: 24.5 cm 107.2 cm/sec Ao V2 VTI: 34.2 cm SANTOS(I,D): 2.4 cm2 SATNOS(V,D): 2.2 cm2 __ TR max mendel: 291.8 cm/sec TR max P.1 mmHg RAP systole: 5.0 mmHg Transcribed By: SCV Performed At: 11/09/24 0858 Signed By: Selina Valverde MD, [facility] 11/09/24 4589 us Shilpa SALAS CV ECHO PROCEDURES Final Res ult * ACTH stimulation, 3 time points (10/29/2024 9:22 AM EDT) Blood Venous blood specimen / Unknown us Kenyetta Dove MD LAB BLOOD ORDERABLES Final Re sult EXTERNAL LAB * ACTH (10/25/2024 10:56 AM EDT) Blood Venous blood specimen / Unknown us Kenyetta Dove MD LAB BLOOD ORDERABLES Final Re sult [facility] * MAMMO 3D,BILATERAL SCREENING MAMMOGRAM WITH TOMOSY (01/20/2024 10:01 AM EDT) Anatomical Region Laterality Modality Radiographic Quiana ging us Unknown Practice A IMG XR PROCEDURES Final Resul t * THINPREP TIS PAP REFLEX HPV MRNA E6/E7 ([id number]) (11/07/2018) CLINICAL INFORMATION: None given [facility] LMP: NONE GIVEN [facility] PREV. PAP: NONE GIVEN [facility] PREV. BX: NONE GIVEN [facility] SOURCE: Vagina [facility] STATEMENT OF ADEQUACY: SATISFACTORY FOR EVALUATION [facility] INTERPRETATION /RESULT: Negative for intraepithelial lesion or malignancy. [facility] COMMENT: This Pap test has been evaluated with computer assisted technology. [facility] CYTOTECHNOLOGI ST: SEE COMMENT [facility] Comment: ALEXANDER CARRASCO(ASCP) CT screening location: [place] [address]. COMMENT SEE COMMENT [facility] Comment: EXPLANATORY NOTE: The Pap is a screening test for cervical cancer. It is not a diagnostic test and is subject to false negative and false positive results. It is most reliable when a satisfactory sample, regularly obtained, is submitted with relevant clinical findings and history, and when the Pap result is evaluated along with historic and current clinical information. 11/07/2018 us Kenji Coreas MD [facility] Final Result Performing Organization Address City/State/[facility] Co de Phone Number [facility] from Last 3 Months or Most Recently Relevant to Health Maintenance Insurance MEDICARE MEDICAID [place] Care Teams Mailroom Supervisor Relationship Specialty Start Date End Date Diony Sharma MD [address] [place] [address] PCP - General Internal Medicine 01/24/24 Kenyetta Dove MD [address] [place] [address] Referring Physician Endocrinology 08/01/24 Simón Ozuna MD [address] [facility] [place] [address] Referring Physician Urology 08/01/24 Amanda Montiel MD [address] [place] [address] Obstetrics and Gynecology 08/01/24 Krish Hodge MD [address] [place] [address] Referring Physician Ophthalmology 08/01/24 Beny Hoskins MD [address] [place] [address] [address] [place] [address] Referring Physician Gastroenterology 08/01/24 [facility] 08/01/24
--- OUTSIDE RECORDS SUMMARY | 2024-12-21 09:15 | XMS_ITS | Encounter Summary ---
Author Organization [facility] Address [address] [place] [address] Care Team Providers Care Firer Tunnel Kiln Name Role Phone Diony Sharma MD Primary Care Provider [phone] Kenyetta Dove MD Unavailable [phone] Simón Ozuna MD Unavailable [phone] Amanda Montiel MD Unavailable [phone] Krish Hodge MD Unavailable [phone] Beny Hoskins MD Unavailable [phone] Encounter Details Date Type Department Care Team (Latest Contact Info) Description 12/19/2024 Travel Social History Tobacco Use Types Packs/Day Years [...] Upcoming Encounters Date Type Department Care Team ( Contact Info) Description 02/06/2025 1:00 PM EDT Office Visit [facility] [address] [place] [address] 02/12/2025 11:10 AM EDT Office Visit [facility] [address] [place] [address] Kenyetta Dove MD [address] [place] [address] documented as of this encounter Visit Diagnoses Not on filedocumented in this encounter Care Teams Firer Tunnel Kiln Relationship Specialty Start Date End Date Diony Sharma MD [address] [place] [address] PCP - General Internal Medicine 01/24/24 Kenyetta Dove MD [address] [place] [address] Referring Physician Endocrinology 08/01/24 Simón Ozuna MD [address] [place] [address] Referring Physician Urology 08/01/24 Amanda Montiel MD [address] [place] [address] Obstetrics and Gynecology 08/01/24 Krish Hodge MD [address] [place] [address] Referring Physician Ophthalmology 08/01/24 Beny Hoskins MD [address] [place] [address] [address] [place] [address] Referring Physician Gastroenterology 08/01/24 [facility] 08/01/24 documented as of this encounter
--- OUTSIDE RECORDS SUMMARY | 2024-12-21 09:15 | XMS_ITS | Encounter Summary ---
Author Organization [facility] Address [address] [place] [address] [place] [address] Care Team Providers Care Wood Cutter Name Role Phone Diony Sharma MD Primary Care Provider [phone] Kenyetta Dove MD Unavailable [phone] Simón Ozuna MD Unavailable [phone] Amanda Montiel MD Unavailable [phone] Krish Hodge MD Unavailable [phone] Beny Hoskins MD Unavailable [phone] Encounter Details Date Type Department Care Team (Late st Contact Info) Description 12/20/2024 Results Follow-Up [facility] [address] [place] [phone] Shilpa Menendez, MARITZA [address] [place] [address] Social History Tobacco Use Types Packs/Day Years [...] on file documented as of this encounter Miscellaneous Notes * Result Encounter Note - Faustino Zuñiga MA - 12/20/2024 9:51 AM EDT Patient informed of the below information documented in this encounter Plan of Treatment Upcoming Encounters Date Type Department Care Team (Late st Contact Info) Description 02/06/2025 1:00 PM EDT Office Visit [facility] [address] [place] [address] 02/12/2025 11:10 AM EDT Office Visit [facility] [address] [place] [phone] Kenyetta Dove MD [address] [place] [address] documented as of this encounter Visit Diagnoses Not on filedocumented in this encounter Care Teams Wood Cutter Relationship Specialty Start Date End Date Diony Sharma MD [address] [place] [address] PCP - General Internal Medicine 01/24/24 Kenyetta Dove MD [address] [place] [address] Referring Physician Endocrinology 08/01/24 Simón Ozuna MD [address] [place] [address] Referring Physician Urology 08/01/24 Amanda Montiel MD [address] [place] [address] Obstetrics and Gynecology 08/01/24 Krish Hodge MD [address] [place] [address] Referring Physician Ophthalmology 08/01/24 Beny Hoskins MD [address] [place] [address] Referring Physician Gastroenterology 08/01/24 [facility] 08/01/24 documented as of this encounter
--- OUTSIDE RECORDS SUMMARY | 2024-12-21 09:15 | XMS_ITS | Encounter Summary ---
Author Organization [facility] Address [address] [place] [address] Care Team Providers Care Installation Superintendent Name Role Phone Diony Sharma MD Primary Care Provider [phone] Kenyetta Dove MD Unavailable [phone] Simón Ozuna MD Unavailable [phone] Amanda Montiel MD Unavailable [phone] Krish Hodge MD Unavailable [phone] Beny Hoskins MD Unavailable [phone] Encounter Details Date Type Department Care Team (Late st Contact Info) Description 12/07/2024 External Result Encounter [facility] External Department Unsolicited Omid Quan, CUSTOMER ACCOUNT SPECIALIST [address] [place] [address] Social History Tobacco Use Types Packs/Day Years Used Date Smoking Tobacco: Every Day Cigarettes Smokeless Tobacco: Never Comments:Pt smoked 1/2 ppd s chata age [age] years old. Alcohol Use Standard Drinks/Week Comments Never 0 (1 standard drink = 0.6 oz pur e alcohol) PHQ-2 Answer Date Recorded Patient Health Questionnaire-2 Score 0 08/01/2024 Comments Unknown Sex and Gender Information Value [...] IM [address] [place] [phone] 02/12/2025 11:10 AM EDT Office Visit [facility] [address] [place] [address] Kenyetta Dove MD [address] [place] [address] documented as of this encounter Procedures Procedure Name Priority Date/Time Associated Diagnosis Comments XR CHEST 2 VIEWS 12/07/2024 11:3 7 AM EDT documented in this encounter Results * XR chest 2 views (12/07/2024 11:37 AM EDT) Anatomical Region Laterality Modality Chest Radiographic Quiana ging 12/07/2024 11:3 7 AM EDT Impressions 12/07/2024 11:40 AM EDT NO ACUTE CARDIOPULMONARY ABNORMALITY. Impression dictated by: Rizwana Thacker M.D. 12/07/2024 11:37 AM Dictation Location: [place] [address] Transcribed By: [facility] 12/07/24 1137 Dictated By: Rizwana Thacker MD 12/07/24 1137 Signed By: <Electronically signed by MD Rizwana Thacker in OV> 12/07/24 1137 Narrative 12/07/2024 11:40 AM EDT [facility] Main [address] [address] XRay Report Signed Patient: Lupe Pickard MR#: [id number] : 1975 Acct:[id number] Age/Sex: 49 / F ADM Date: 12/07/24 Loc: XD Room: Type: [facility] Attending Dr: Omid Quan RN, MSN, ANP-C [...] 2V* Procedure Note Radiology, Radiologist, - 12/07/2024 [facility] Main [place] [address] [place] [address] XRay Report Signed Patient: Lupe Pickard MMR#: [id number] : 1975Acct:[id number] Age/Sex: 49 / FADM Date: 12/07/24 Loc: XD Room:Type: [facility] Attending Dr: Omid Quan RN, MSN, ANP-C [...] Thacker M.D. 12/07/2024 11:37 AM Dictation Location: [place] [address] Transcribed By: [facility] 12/07/24 1137 Dictated By: Rizwana Thacker MD 12/07/24 1137 Signed By: <Electronically signed by MD Rizwana Thacker in OV> 12/07/24 1137 us Omid Quan CUSTOMER ACCOUNT SPECIALIST IMG XR PROCEDURES Final Resu lt documented in this encounter Visit Diagnoses Not on filedocumented in this encounter Care Teams Installation Superintendent Relationship Specialty Start Date End Date Diony Sharma MD [address] [place] [address] PCP - General Internal Medicine 01/24/24 Kenyetta Dove MD [address] [facility] [place] [address] Referring Physician Endocrinology 08/01/24 Simón Ozuna MD [address] [place] [address] Referring Physician Urology 08/01/24 Amanda Montiel MD [address] [place] [address] Obstetrics and Gynecology 08/01/24 Krish Hodge MD [address] [place] [address] Referring Physician Ophthalmology 08/01/24 Beny Hoskins MD [address] [place] [address] [address] [place] [address] Referring Physician Gastroenterology 08/01/24 [facility] 08/01/24 documented as of this encounter
--- OUTSIDE RECORDS SUMMARY | 2024-12-21 09:15 | XMS_ITS | Encounter Summary ---
Author Organization [facility] Address [address] [place] [address] Care Team Providers Care Phys Asst Name Role Phone Diony Sharma MD Primary Care Provider [phone] Kenyetta Dove MD Unavailable [phone] Simón Ozuna MD Unavailable [phone] Amanda Montiel MD Unavailable [phone] Krish Hodge MD Unavailable [phone] Beny Hoskins MD Unavailable [phone] Encounter Details Date Type Department Care Team (Late st Contact Info) Description 12/07/2024 External Result Encounter [facility] External Department Unsolicited Omid Stevens, STEEL FABRICATING SUPERVISOR [address] [place] [address] Social History Tobacco Use Types Packs/Day Years [...] [address] [place] [phone] 02/12/2025 11:10 AM EDT Office Visit [facility] [address] [place] [address] Kenyetta Dove MD [address] [place] [address] documented as of this encounter Procedures Procedure Name Priority Date/Time Associated Diagnosis Comments HIGH SENSITIVITY CRP Routine 12/07/2024 9:51 AM EDT documented in this encounter Results * (ABNORMAL) High sensitivity CRP (12/07/2024 9:51 AM EDT) HIGH SENSITIVE CRP 15.7(H) 0.0 - 0.9 mg/L 12/07/2024 11:19 AM EDT [facility] Comment: Cardiovascular Risk Classification [...] 12/07/2024 9:51 AM EDT us Omid Stevens NP LAB BLOOD ORDERABLES Final R esult [facility] [address] [place] [address], [facility] [address] [place] [address] documented in this encounter Visit Diagnoses Not on filedocumented in this encounter Care Teams Phys Asst Relationship Specialty Start Date End Date Diony Sharma MD [address] [place] [address] PCP - General Internal Medicine 01/24/24 Kenyetta Dove MD [address] [place] [address] Referring Physician Endocrinology 08/01/24 Simón Ozuna MD [address] [place] [address] Referring Physician Urology 08/01/24 Amanda Montiel MD [address] [place] [address] Obstetrics and Gynecology 08/01/24 Krish Hodge MD [address] [place] [address] Referring Physician Ophthalmology 08/01/24 Beny Hoskins MD [address] [place] [address] [address] [place] [address] Referring Physician Gastroenterology 08/01/24 [facility] Mental Health 08/01/24 documented as of this encounter
--- OUTSIDE RECORDS SUMMARY | 2024-12-21 09:15 | XMS_ITS | Clinical Summary ---
Author Organization [facility] Address [address] [place] [address] Care Team Providers Care Guide Cruise Name Role Phone Simón Davidson DO Unavailable [phone] Allergies No known active allergies Medications Glucosamine-Cho [...] is lower risk 4 05/17/2023 Data from: https://www.neighborhoodatlas.medicine.[facility].edu/. Last address used for calculation [address] 05/17/2023 Comments No Sex and Gender [...] 2022 Sigmoidoscopy 2022 Mammogram Screening 12/30/2023 12/29/2022 Influenza Vaccine (#1) 2025 Diabetes Screening 05/19/2026 05/19/2023 Hepatitis B Vaccine Completed 06/05/2001, 12/28/2000, 11/14/2000 Procedures Procedure Name Priority Date/Time Associated Diagnosis Comments COMPREHENSIVE METABOLIC PANEL Routine 05/19/2023 8:07 AM EST Positive WILL (antinuclear antibody) from Last 3 Months or Most Recently Relevant to Health Maintenance Results * (ABNORMAL) COMP METABOLIC PANEL (05/19/2023 8:07 AM EST) Pathologist [facility] Protein, Total 6.7 6.3 - 8.0 g/dL 05/19/2023 8:43 AM EST [facility] Albumin 4.1 3.9 - 4.9 g/dL 05/19/2023 8:43 AM EST [facility] Calcium, Total 9.2 8.5 - 10.2 mg/dL 05/19/2023 8:43 AM EST [facility] Bilirubin, Total 0.2 0.2 - 1.3 mg/dL 05/19/2023 8:43 AM EST [facility] Alkaline Phosphatase 62 34 - 123 U/L 05/19/2023 8:43 AM EST [facility] AST 10(L) 13 - 35 U/L 05/19/2023 8:43 AM EST [facility] ALT 19 7 - 38 U/L 05/19/2023 8:43 AM EST [facility] Glucose 105(H) 74 - 99 mg/dL 05/19/2023 8:43 AM EST [facility] Comment: The [place] Diabetes Association (ADA) provides guidance for cutoff [...] Standards of Medical Care in Diabetes 2016, [place] [employer]. Diabetes Care. 2016.39(Suppl 1). BUN 17 7 - 21 mg/dL 05/19/2023 8:43 AM EST [facility] Creatinine 0.65 0.58 - 0.96 mg/dL 05/19/2023 8:43 AM [facility] Sodium 142 136 - 144 mmol/L 05/19/2023 8:43 AM [facility] Potassium 4.3 3.7 - 5.1 mmol/L 05/19/2023 8:43 AM [facility] Chloride 106(H) 97 - 105 mmol/L 05/19/2023 8:43 AM [facility] CO2 27 22 - 30 mmol/L 05/19/2023 8:43 AM [facility] Anion Gap 9 9 - 18 mmol/L 05/19/2023 8:43 AM [facility] Estimated Glomerular Filtration Rate 110 >=60 mL/min/1. 73m 05/19/2023 8:43 AM [facility] Comment:Estimated Glomerular Filtration Rate (eGFR) is [...] Stephie Brambila MD LABORATORY Final Result [facility] [address] [place] [address] from Last 3 Months or Most Recently Relevant to Health Maintenance Insurance MEDICARE MEDICAID [place] Care Teams Guide Cruise Relationship Specialty Start Date End Date Simón Davidson DO Referring Family Medicine 11/22/22
--- OUTSIDE RECORDS SUMMARY | 2024-12-21 09:15 | XMS_ITS | Encounter Summary ---
Author Organization [facility] Address [address] [place] [address] Phone Care Team Providers Care Pull Over Machine Operator Name Role Phone Simón Davidson DO Primary Care Provider + Encounter Details Date Type Department Care Team (Late st Contact Info) Description 06/21/2022 Orders Only [facility] [address] [place] [address] Conversion, Onbase Social History Tobacco Use Types [...] on filedocumented in this encounter Care Teams Pull Over Machine Operator Relationship Specialty Start Date End Date Simón Davidson DO [address] [facility] [place] [address] PCP - General 10/21/17 documented as of this encounter
--- OUTSIDE RECORDS SUMMARY | 2024-12-21 09:15 | XMS_ITS | Encounter Summary ---
Author Organization [facility] Address [address] [place] [address] Care Team Providers Care Air Conditioning Insulation Installer Name Role Phone Diony Sharma MD Primary Care Provider [phone] Kenyetta Dove MD Unavailable [phone] Simón Ozuna MD Unavailable [phone] Amanda Montiel MD Unavailable [phone] Krish Hodge MD Unavailable [phone] Bney Hoskins MD Unavailable [phone] Encounter Details Date Type Department Care Team (Latest Contact Info) Description 12/13/2024 Travel Social History Tobacco Use Types Packs/Day [...] as of this encounter Functional Status * Over the past 2 weeks, how often have you been bothered by any of the following problems? Question Answer Date of Assessment Author Little interest or pleasure in doing things Not at all 12/13/2024 10:00 AM EDT Kim Thompson MA Feeling down, depressed, or hopeless Not at all 12/13/2024 10:00 AM EDT Kim Thompson MA Patient Health Questionnaire -2 Score 0 12/13/2024 10:00 AM EDT Kim Thompson MA documented as of this encounter Plan of Treatment Upcoming Encounters Date Type Department Care Team (Late st Contact Info) Description 02/06/2025 1:00 PM EDT Office Visit [facility] [address] [place] [address] 02/12/2025 11:10 AM EDT Office Visit [facility] [address] [place] [address] Kenyetta Dove MD [address] [place] [address] documented as of this encounter Visit Diagnoses Not on filedocumented in this encounter Care Teams Air Conditioning Insulation Installer Relationship Specialty Start Date End Date Diony Sharma MD [address] [place] [address] PCP - General Internal Medicine 01/24/24 Kenyetta Dove MD [address] [place] [address] Referring Physician Endocrinology 08/01/24 Simón Ozuna MD [address] [place] [place] [address] Referring Physician Urology 08/01/24 Amanda Montiel MD [address] [place] [address] Obstetrics and Gynecology 08/01/24 Krish Hodge MD [address] [place] [address] Referring Physician Ophthalmology 08/01/24 Beny Hoskins MD [address] [place] [address] [address] [place] [address] Referring Physician Gastroenterology 08/01/24 [facility] Health 08/01/24 documented as of this encounter
--- OUTSIDE RECORDS SUMMARY | 2024-12-21 09:15 | XMS_ITS | Encounter Summary ---
Author Organization [facility] Address [address] [place] [address] Phone Care Team Providers Care Slot Supervisor Name Role Phone Simón Davidson DO Primary Care Provider + Encounter Details Date Type Department Care Team (Late st Contact Info) Description 01/03/2018 Orders Only [facility] [address] [place] [address] Conversion, Onbase Social History Tobacco Use Types [...] on filedocumented in this encounter Care Teams Slot Supervisor Relationship Specialty Start Date End Date Simón Davidson DO [address] [facility] [place] [address] PCP - General 10/21/17 documented as of this encounter
--- OUTSIDE RECORDS SUMMARY | 2024-12-21 09:15 | XMS_ITS | Encounter Summary ---
Author Organization [facility] Address [address] [place] [address] Care Team Providers Care Software Engineer Mobile Name Role Phone Diony Sharma MD Primary Care Provider [phone] Kenyetta Dove MD Unavailable [phone] Simón Ozuna MD Unavailable [phone] Amanda Montiel MD Unavailable [phone] Krish Hodge MD Unavailable [phone] Beny Hoskins MD Unavailable [phone] Encounter Details Date Type Department Care Team (Late st Contact Info) Description 11/09/2024 External Result Encounter [facility] External Department Unsolicited Shilpa Menendez, MARITZA [address] [place] [address] Social History Tobacco Use Types Packs/Day Years [...] [address] [place] [phone] 02/12/2025 11:10 AM EDT Office Visit [facility] [address] [place] [address] Kenyetta Dove MD [address] [place] [address] documented as of this encounter Procedures Procedure Name Priority Date/Time Associated Diagnosis Comments TRANSTHORACIC ECHO (TTE) COMPLETE 11/09/2024 8:58 AM EDT documented in this encounter Results * Transthoracic echo (TTE) complete (11/09/2024 8:58 AM EDT) Anatomical Region Laterality Modality Heart Ultrasound 11/09/2024 8:58 AM EDT Narrative 11/09/2024 4:45 PM EDT [facility] Main [address] [address] Echocardiogram Signed Patient: Lupe Pickard MR#: [id number] : 1975 Acct:[id number] Age/Sex: 49 / F ADM Date: 11/09/24 Loc: Room: Type: [facility] Attending Dr: Shilpa Menendez PA-C Ordering Provider: [...] 11/09/24 0858 Signed By: Selina Valverde MD, [facility] 11/09/24 1644 Procedure Note Selina Valverde MD - 11/09/2024 [facility] Main [place] [address] [place] [address] Echocardiogram Signed Patient: Lupe Pickard [facility]#: [id number] : 1975Acct:[id number] Age/Sex: 49 / FADM Date: 11/09/24 Loc: Room:Type: [facility] Attending Dr: Shilpa Menendez PA-C Ordering Provider: Shilpa Menendez PA-C Date of Service: 11/09/24/ ECH/ECH echo transthoracic: EDEMA, SOB Copies to: Selina Valverde MD, [facility] Shilpa Menendez PA-C BSA: 2.4 m2 BP: [...] 11/09/24 0858 Signed By: Selina Valverde MD, [facility] 11/09/24 1644 Shilpa SALAS CV ECHO PROCEDURES Final Res ult documented in this encounter Visit Diagnoses Not on filedocumented in this encounter Care Teams Software Engineer Mobile Relationship Specialty Start Date End Date Diony Sharma MD [address] [place] [address] PCP - General Internal Medicine 01/24/24 Kenyetta Dove MD [address] [place] [address] Referring Physician Endocrinology 08/01/24 Simón Ozuna MD [address] [place] [address] Referring Physician Urology 08/01/24 Amanda Montiel MD [address] [place] [id number] Obstetrics and Gynecology 08/01/24 Krish Hodge MD [address] [place] [address] Referring Physician Ophthalmology 08/01/24 Beny Hoskins MD [address] [place] [address] Referring Physician Gastroenterology 08/01/24 [facility] Mental Health 08/01/24 documented as of this encounter
--- OUTSIDE RECORDS SUMMARY | 2024-12-21 09:15 | XMS_ITS | Encounter Summary ---
Author Organization [facility] Address [address] [place] [address] Care Team Providers Care Gas Plant Worker Name Role Phone Diony Sharma MD Primary Care Provider [phone] Kenyetta Dove MD Unavailable [phone] Simón Ozuna MD Unavailable [phone] Amanda Montiel MD Unavailable [phone] Krish Hodge MD Unavailable [phone] Beny Hoskins MD Unavailable [phone] Encounter Details Date Type Department Care Team (Late st Contact Info) Description 12/07/2024 External Result Encounter [facility] External Department Unsolicited Omid Stevens, INSTRUCTOR PAINTING [address] [place] [address] Social History Tobacco Use Types Packs/Day Years [...] [address] [place] [address] 02/12/2025 11:10 AM EDT Office Visit [facility] [address] [place] [address] Kenyetta Dove MD [address] [place] [address] documented as of this encounter Procedures Procedure Name Priority Date/Time Associated Diagnosis Comments FREE K+L LT CHAINS, QN, S Routine 12/07/2024 9:51 AM EDT RHEUMATOID FACTOR Routine 12/07/2024 9:5 1 AM EDT WILL SCREEN W/REFLEX Routine 12/07/2024 9 :51 AM EDT PROTEIN ELECTROPHORESIS, SERUM Routine 12/07/2024 9:51 AM EDT documented in this encounter Results * FREE K+L LT CHAINS, QN, S (12/07/2024 9:51 AM EDT) FREE KAPPA LIGHT CHAINS, S 12.3 3.3 - 19.4 mg/L 12/10/2024 2:36 PM EDT [facility] FREE LAMBDA LIGHT CHAINS, S 14.2 5.7 - 26.3 mg/L 12/10/2024 2:36 PM EDT [facility] KAPPA/LAMBDA RATIO, S 0.87 0.26 - 1.65 12/10/2024 2:36 PM EDT [facility] Comment: Performed at: [address] [id number] Milling Machinist: Ramirez Ca PhD, Phone: [phone] Other Topography unknown / Unknown 12/07/2024 9:51 AM EDT 12/07/2024 9:51 AM EDT us Omid Stevens INSTRUCTOR PAINTING LAB BLOOD ORDERABLES Final R esult Performing Organization Address City/[facility]/ZIP Co de Phone Number [facility] [place] [place] [address], [place] * Protein electrophoresis, serum (12/07/2024 9:51 AM EDT) TOTAL PROTEIN, SERUM 6.4 6.0 - 8.5 g/dL 12/10/2024 2:36 PM EDT [facility] ALBUMIN, SERUM 3.3 2.9 - 4.4 g/dL 12/10/2024 2:36 PM EDT [facility] OJOSG-7-[id number] 0.2 0.0 - 0.4 g/dL 12/10/2024 2:36 PM EDT [facility] [id number]-5-JOOUUGBY 0.9 0.4 - 1.0 g/dL 12/10/2024 2:36 PM EDT [facility] BETA GLOBULIN 1.1 0.7 - 1.3 g/dL 12/10/2024 2:36 PM EDT [facility] GAMMA GLOBULIN 0.9 0.4 - 1.8 g/dL 12/10/2024 2:36 PM EDT [facility] M-SPIKE Not Observed Not Observed g/dL 12/10/2024 2:36 PM EDT [facility] GLOBULIN, TOTAL 3.1 2.2 - 3.9 g/dL 12/10/2024 2:36 PM EDT [facility] A/G RATIO 1.1 0.7 - 1.7 12/10/2024 2:36 PM EDT [facility] SPE-NOTE Comment . 12/10/2024 2:36 PM EDT [facility] Comment: Protein electrophoresis scan will follow via computer, mail, or process controller delivery. Other Topography unknown / Unknown 12/07/2024 9:51 AM EDT 12/07/2024 9:51 AM EDT us Omid Stevens INSTRUCTOR PAINTING LAB BLOOD ORDERABLES Final R esult Performing Organization Address City/[facility]/ZIP Co de Phone Number [facility] [place] [place] [address], [place] * WILL (12/07/2024 9:51 AM EDT) ANTINUCLEAR ABS, IFA Negative . 12/10/2024 9:08 AM EDT [facility] Comment: Negative <1:80 Borderline 1:80 Positive >1:80 ICAP nomenclature: AC-0 For more information about Hep-2 cell patterns use ANApatterns.org, the official website for the International Consensus on Antinuclear Antibody (WILL) Patterns (ICAP). Performed at: [address] [id number] Milling Machinist: Ramirez Ca PhD, Phone: [phone] Other Topography unknown / Unknown 12/07/2024 9:51 AM EDT 12/07/2024 9:51 AM EDT us Omid Stevens INSTRUCTOR PAINTING LAB BLOOD ORDERABLES Final R esult Performing Organization Address City/[facility]/ZIP Co de Phone Number [facility] [address] [place] [address], * Rheumatoid factor (12/07/2024 9:51 AM EDT) Pathologist [facility] RHEUMATOID FACTOR 10.4 <14.0 12/08/2024 4:36 AM EDT [facility] Comment: Performed at: [address] [id number] Milling Machinist: Ramirez Ca PhD, Phone: [phone] Other Topography unknown / Unknown 12/07/2024 9:51 AM EDT 12/07/2024 9:51 AM EDT us Omid Stevens INSTRUCTOR PAINTING LAB BLOOD ORDERABLES Final R esult Performing Organization Address City/[facility] Co de Phone Number [facility] [address] [place] [address], documented in this encounter Visit Diagnoses Not on filedocumented in this encounter Care Teams Gas Plant Worker Relationship Specialty Start Date End Date Diony Sharma MD [address] [place] [address] PCP - General Internal Medicine 8/27/24 Kenyetta Dove MD [address] [place] [address] Referring Physician Endocrinology 08/01/24 Simón Ozuna MD [address] [address] Referring Physician Urology 08/01/24 Amanda Montiel MD [address] [place] [address] Obstetrics and Gynecology 08/01/24 Krish Hodge MD [address] [place] [address] Referring Physician Ophthalmology 08/01/24 Beny Hoskins MD [address] [place] [address] [address] [place] [address] Referring Physician Gastroenterology 08/01/24 [facility] 08/01/24 documented as of this encounter
--- OUTSIDE RECORDS SUMMARY | 2024-12-21 09:15 | XMS_ITS | Encounter Summary ---
Author Organization [facility] Address [address] [place] [address] Care Team Providers Care Pickle Pumper Name Role Phone Diony Sharma MD Primary Care Provider [phone] Kenyetta Dove MD Unavailable [phone] Simón Ozuna MD Unavailable [phone] Amanda Montiel MD Unavailable [phone] Krish Hodge MD Unavailable [phone] Beny Hoskins MD Unavailable [phone] Encounter Details Date Type Department Care Team (Late st Contact Info) Description 10/16/2024 Orders Only [facility] [address] [place] [phone] Kenyetta Dove MD [address] [place] [address] Abnormal cortisol level (Primary Dx) Social History Tobacco Use Types [...] IM [address] [place] [id number] 02/12/2025 11:10 AM EDT Office Visit [facility] [address] [place] [address] Kenyetta Dove MD [address] [place] [address] documented as of this encounter Procedures Procedure Name Priority Date/Time Associated Diagnosis Comments ACTH STIMULATION, 3 TIME POINTS Routine 10/29/2024 9:22 AM EDT Abnormal cortisol level documented in this encounter Results * ACTH stimulation, 3 time points (10/29/2024 9:22 AM EDT) Blood Venous blood specimen / Unknown Kenyetta Dove MD LAB BLOOD ORDERABLES Final Re sult EXTERNAL LAB documented in this encounter Visit Diagnoses Diagnosis Abnormal cortisol level- Primary documented in this encounter Care Teams Pickle Pumper Relationship Specialty Start Date End Date Diony Sharma MD [address] [place] [address] PCP - General Internal Medicine 01/24/24 Kenyetta Dove MD [address] [place] [address] Referring Physician Endocrinology 08/01/24 Simón Ozuna MD [address] [place] [address] Referring Physician Urology 08/01/24 Amanda Montiel MD [address] [facility] [address] [place] [address] Obstetrics and Gynecology 08/01/24 Krish Hodge MD [address] [place] [address] Referring Physician Ophthalmology 08/01/24 Beny Hoskins MD [address] [place] [address] [address] [place] [address] Referring Physician Gastroenterology 08/01/24 [facility] 08/01/24 documented as of this encounter
--- OUTSIDE RECORDS SUMMARY | 2024-12-21 09:15 | XMS_ITS | Encounter Summary ---
Author Organization [facility] Address [address] [place] [address] Care Team Providers Care Paint Stockman Name Role Phone Diony Sharma MD Primary Care Provider [phone] Kenyetta Dove MD Unavailable [phone] Simón Ozuna MD Unavailable [phone] Amanda Montiel MD Unavailable [phone] Krish Hodge MD Unavailable [phone] Beny Hoskins MD Unavailable [phone] Encounter Details Date Type Department Care Team (Late st Contact Info) Description 12/07/2024 External Result Encounter [facility] External Department Unsolicited Omid Stevens, PLASTICS NURSE [address] [place] [address] Social History Tobacco Use Types Packs/Day Years [...] [address] [place] [address] 02/12/2025 11:10 AM EDT Office Visit [facility] [address] [place] [address] Kenyetta Dove MD [address] [place] [address] documented as of this encounter Procedures Procedure Name Priority Date/Time Associated Diagnosis Comments HEMOGLOBIN A1C WITH EAG Routine 12/07/2024 9:51 AM EDT documented in this encounter Results * (ABNORMAL) Hemoglobin a1c with eag (12/07/2024 9:51 AM EDT) HEMOGLOBIN A1C 5.7(H) 4.3 - 5.6 % 12/07/2024 12:35 PM EDT [facility] Comment: Increased risk for diabetes: 5.7 - 6.4 diabetes: >6.4 glycemic control for adults with diabetes: <7.0 ESTIMATED AVERAGE GLUCOSE 117 mg/dL 12/07/2024 12:35 PM EDT [facility] Blood (Blood) 12/07/2024 9:5 1 AM EDT 12/07/2024 9:51 AM EDT us Omid Stevens PLASTICS NURSE LAB BLOOD ORDERABLES Final R esult [facility] [address] [place] [address], [facility] [address] [place] [address] documented in this encounter Visit Diagnoses Not on filedocumented in this encounter Care Teams Paint Stockman Relationship Specialty Start Date End Date Diony Sharma MD [address] [place] [address] PCP - General Internal Medicine 01/24/24 Kenyetta Dove MD [address] [place] [address] Referring Physician Endocrinology 08/01/24 Simón Ozuna MD [address] [place] [address] Referring Physician Urology 08/01/24 Amanda Montiel MD [address] [place] [address] Obstetrics and Gynecology 08/01/24 Krish Hodge MD [address] [place] [address] Referring Physician Ophthalmology 08/01/24 Beny Hoskins MD [address] [place] [address] [address] [place] [address] Referring Physician Gastroenterology 08/01/24 [facility] Mental [facility] 08/01/24 documented as of this encounter
--- OUTSIDE RECORDS SUMMARY | 2024-12-21 09:15 | XMS_ITS | Encounter Summary ---
Author Organization [facility] Address [address] [place] [address] Care Team Providers Care Clean Energy Policy Analyst Name Role Phone Diony Sharma MD Primary Care Provider [phone] Kenyetta Dove MD Unavailable [phone] Simón Ozuna MD Unavailable [phone] Amanda Montiel MD Unavailable [phone] Krish Hodge MD Unavailable [phone] Beny Hoskins MD Unavailable [phone] Encounter Details Date Type Department Care Team (Late st Contact Info) Description 12/07/2024 External Result Encounter [facility] External Department Unsolicited Omid Stevens, LIVING SKILLS ADVISOR [address] [place] [address] Social History Tobacco Use Types Packs/Day Years [...] [address] [place] [phone] 02/12/2025 11:10 AM EDT Office Visit [facility] [address] [place] [address] Kenyetta Dove MD [address] [place] [address] documented as of this encounter Procedures Procedure Name Priority Date/Time Associated Diagnosis Comments SED RATE BY MODIFIED WESTERGREN Routine 12/07/2024 9:51 AM EDT documented in this encounter Results * (ABNORMAL) Sedimentation rate, automated (12/07/2024 9:51 AM EDT) ERYTHROCYTE SEDIMENTATION RATE 22(H) 0 - 19 12/07/2024 11:25 AM EDT [facility] Blood (Blood) 12/07/2024 9:5 1 AM EDT 12/07/2024 9:51 AM EDT Omid Stevens LIVING SKILLS ADVISOR LAB BLOOD ORDERABLES Final R esult [facility] [address] [place] [address], [facility] [address] [place] [address] documented in this encounter Visit Diagnoses Not on filedocumented in this encounter Care Teams Clean Energy Policy Analyst Relationship Specialty Start Date End Date Diony Sharma MD [address] [place] [address] PCP - General Internal Medicine 01/24/24 Kenyetta Dove MD [address] [place] [address] Referring Physician Endocrinology 08/01/24 Simón Ozuna MD [address] [place] [address] Referring Physician Urology 08/01/24 Amanda Montiel MD [address] [place] [address] Obstetrics and Gynecology 08/01/24 Krish Hodge MD [address] [place] [address] Referring Physician Ophthalmology 08/01/24 Beny Hoskins MD [address] [place] [address] [address] [place] [address] Referring Physician Gastroenterology 08/01/24 [facility] Mental Health 08/01/24 documented as of this encounter
--- OUTSIDE RECORDS SUMMARY | 2024-12-21 09:15 | XMS_ITS | Encounter Summary ---
Author Organization [facility] Address [address] [place] [address] Care Team Providers Care Oil Field Equipment Mechanic Name Role Phone Diony Sharma MD Primary Care Provider [phone] Kenyetta Dove MD Unavailable [phone] Simón Ozuna MD Unavailable [phone] Amanda Montiel MD Unavailable [phone] Krish Hodge MD Unavailable [phone] Beny Hoskins MD Unavailable [phone] Encounter Details Date Type Department Care Team (Late st Contact Info) Description 12/07/2024 External Result Encounter [facility] External Department Unsolicited Omid Stevens, DRIVE SHAFT AND STEERING POST REPAIRER [address] [place] [address] Social History Tobacco Use Types Packs/Day Years [...] [address] [place] [phone] 02/12/2025 11:10 AM EDT Office Visit [facility] [address] [place] [address] Kenyetta Dove MD [address] [place] [address] documented as of this encounter Procedures Procedure Name Priority Date/Time Associated Diagnosis Comments MAGNESIUM Routine 12/07/2024 9:51 AM EDT COMPREHENSIVE METABOLIC PANEL Routine 12/07/2024 9:51 AM EDT documented in this encounter Results * Magnesium (12/07/2024 9:51 AM EDT) MAGNESIUM 1.9 1.9 - 2.7 mg/dL 12/07/2024 11:21 AM EDT [facility] Other Topography unknown / Unknown 12/07/2024 9:51 AM EDT 12/07/2024 9:51 AM EDT Omid Stevens NP LAB BLOOD ORDERABLES Final R esult [facility] [address] [place] [address], [facility] [address] [place] [address] * (ABNORMAL) Comprehensive metabolic panel (12/07/2024 9:51 AM EDT) Glucose 109(H) 70 - 100 mg/dL 12/07/2024 11:21 AM EDT [facility] Comment: Random Glucose Reference Range is dependent on time and content of last meal. Glucose of more than 200 mg/dL in a nonstressed, ambulatory subject supports the diagnosis of Diabetes Mellitus. ADA recommended reference range BUN 12 7 - 25 mg/dL 12/07/2024 11:21 AM EDT [facility] CREATININE 0.50(L) 0.60 - 1.20 mg/dL 12/07/2024 11:21 AM EDT [facility] ESTIMATED GFR >60.0 12/07/2024 11:21 AM EDT [facility] Sodium 139 136 - 145 mmol/L 12/07/2024 11:21 AM EDT [facility] Potassium, Bld 4.2 3.5 - 5.1 mmol/L 12/07/2024 11:21 AM EDT [facility] Chloride 101 98 - 107 mmol/L 12/07/2024 11:21 AM EDT [facility] Carbon Dioxide 31.0 21.0 - 31.0 mmol/L 12/07/2024 11:21 AM EDT [facility] Anion Gap 11.2 6.0 - 15.0 12/07/2024 11:21 AM EDT [facility] Calcium 9.0 8.6 - 10.3 mg/dL 12/07/2024 11:21 AM EDT [facility] TOTAL PROTEIN 6.5 6.4 - 8.9 g/dL 12/07/2024 11:21 AM EDT [facility] ALBUMIN LEVEL 3.8 3.5 - 5.7 g/dL 12/07/2024 11:21 AM EDT [facility] GLOBULIN 2.7 g/dL 12/07/2024 11:21 AM EDT [facility] ALBUMIN/GLOBULIN RATIO 1.4 12/07/2024 11:21 AM EDT [facility] BILIRUBIN,TOTAL 0.4 0.3 - 1.0 mg/dL 12/07/2024 11:21 AM EDT [facility] ASPARTATE AMINO TRANSFERASE 20 13 - 39 U/L 12/07/2024 11:21 AM EDT [facility] ALANINE AMINOTRANSFERASE 29 7 - 52 U/L 12/07/2024 11:21 AM EDT [facility] ALKALINE PHOSPHATASE 56 34 - 104 U/L 12/07/2024 11:21 AM EDT [facility] Other Topography unknown / Unknown 12/07/2024 9:51 AM EDT 12/07/2024 9:51 AM EDT us Omid Kyler Stevens DRIVE SHAFT AND STEERING POST REPAIRER LAB BLOOD ORDERABLES Final R esult [facility] [address] [place] [address], [facility] [address] [place] [address] documented in this encounter Visit Diagnoses Not on filedocumented in this encounter Care Teams Oil Field Equipment Mechanic Relationship Specialty Start Date End Date Diony Sharma MD [address] [place] [address] PCP - General Internal Medicine 01/24/24 Kenyetta Dove MD [address] [place] [address] Referring Physician Endocrinology 08/01/24 Simón Ozuna MD [address] [address] Referring Physician Urology 08/01/24 Amanda Montiel MD [address] [place] [address] Obstetrics and Gynecology 08/01/24 Krish Hodge MD [address] [place] [address] Referring Physician Ophthalmology 08/01/24 Beny Hoskins MD [address] [place] [address] [address] [place] [address] Referring Physician Gastroenterology 08/01/24 [facility] Mental Health 08/01/24 documented as of this encounter
--- OUTSIDE RECORDS SUMMARY | 2024-12-21 09:15 | XMS_ITS | Encounter Summary ---
Author Organization [facility] Address [address] [place] [address] Care Team Providers Care Medical Claims Representative Name Role Phone Diony Sharma MD Primary Care Provider [phone] Kenyetta Dove MD Unavailable [phone] Simón Ozuna MD Unavailable [phone] Amanda Montiel MD Unavailable [phone] Krish Hodge MD Unavailable [phone] Beny Hoskins MD Unavailable [phone] Reason for Visit * Reason Onset Date Comments lab results 12/10/2024 Encounter Details Date Type Department Care Team (Late st Contact Info) Description 12/10/2024 Results Follow-Up [facility] [address] [facility] [address] [place] [address] Omid Stevens, CORRESPONDENCE CLERK [address] [facility] [address] [place] [address] Social History Tobacco Use Types [...] Thompson MA documented as of this encounter Miscellaneous Notes * Telephone Encounter - Fadumo Montes LPN - 12/11/2024 8:42 AM EDT 12-20-24 appt is great! * Telephone Encounter - Fadumo Montes LPN - 12/11/2024 8:42 AM EDT ----- Message from Meme Daniels sent at 12/11/2024 7:59 AM EDT ----- Patient is scheduled for 12/20 already for a follow up, should I schedule something sooner or is that appointment okay ? ----- Message ----- From: Fadumo Montes LPN Sent: 12/10/2024 4:45 PM EDT To: Meme Machuca ----- Message from Fadumo Montes LPN sent at 12/10/2024 4:45 PM EDT ----- * Telephone Encounter - Fadumo Montes LPN - 12/10/2024 4:39 PM EDT Reviewed the lab results and told the patient her plan of care instructions. Sent to girls in frontto schedule with Dr Sharma * Telephone Encounter - Fadumo Montes LPN - 12/10/2024 4:39 PM EDT ----- Message from Omid Stevens sent at 12/10/2024 4:29 PM EDT ----- Advise pt that the rest of her labs came in. Rheumatoid, lupus testing, proteins are all normal. The CRP tells me now that she needs risk factor modification. Lowering weight, following mediterranean diet, keeping LDL under 100, etc. I would like her to come in and see Dr. Sharma to make sure there isn't anything else that we need to look into. ----- Message ----- From: Interface, Incoming Lab [facility] [place] Sent: 12/10/2024 2:37 PM EDT To: Omid Stevens NP * Result Encounter Note - Omid Stevens NP - 12/10/2024 4:29 PM EDT Advise pt that the rest of her labs came in. Rheumatoid, lupus testing, proteins are all normal. The CRP tells me now that she needs risk factor modification. Lowering weight, following mediterraneandiet, keeping LDL under 100, etc. I would like her to come in and see Dr. Sharma to make sure there isn't anything else that we need to look into. documented in this encounter Plan of Treatment Upcoming Encounters Date Type Department Care Team (Late st Contact Info) Description 02/06/2025 1:00 PM EDT Office Visit [facility] [address] [place] [phone] 02/12/2025 11:10 AM EDT Office Visit [facility] [address] [place] [id number] Kenyetta Dove MD [address] [place] [address] documented as of this encounter Visit Diagnoses Not on filedocumented in this encounter Care Teams Medical Claims Representative Relationship Specialty Start Date End Date Diony Sharma MD [address] [place] [address] PCP - General Internal Medicine 01/24/24 Kenyetta Dove MD [address] [place] [address] Referring Physician Endocrinology 08/01/24 Simón Ozuna MD [address] [place] [address] Referring Physician Urology 08/01/24 Amanda Montiel MD [address] [facility] [address] [place] [address] Obstetrics and Gynecology 08/01/24 Krish Hodge MD [address] [place] [address] Referring Physician Ophthalmology 08/01/24 Beny Hoskins MD [address] [place] [address] [address] [place] [address] Referring Physician Gastroenterology 08/01/24 [facility] Mental Health 08/01/24 documented as of this encounter
--- OUTSIDE RECORDS SUMMARY | 2024-12-21 09:15 | XMS_ITS | Encounter Summary ---
Author Organization [facility] Address [address] [place] [address] Care Team Providers Care Front Desk Supervisor Name Role Phone Diony Sharma MD Primary Care Provider [phone] Kenyetta Dove MD Unavailable [phone] Simón Ozuna MD Unavailable [phone] Amanda Montiel MD Unavailable [phone] Krish Hodge MD Unavailable [phone] Beny Hoskins MD Unavailable [phone] Encounter Details Date Type Department Care Team (Late st Contact Info) Description 12/07/2024 External Result Encounter [facility] External Department Unsolicited Omid Stevens, LAST PATTERN GRADER [address] [place] [address] Social History Tobacco Use Types Packs/Day Years [...] IM [address] [place] [phone] 02/12/2025 11:10 AM EDT Office Visit [facility] [address] [place] [address] Kenyetta Dove MD [address] [place] [address] documented as of this encounter Procedures Procedure Name Priority Date/Time Associated Diagnosis Comments MICROALBUMIN / CREATININE URINE RATIO Routine 12/07/2024 9:51 AM EDT documented in this encounter Results * Microalbumin / creatinine urine ratio (12/07/2024 9:51 AM EDT) MICROALBUMIN, URINE <0.7 0.0 - 1.8 mg/dL 12/07/2024 11:33 AM EDT [facility] CREATININE, URINE (RANDOM) 75.00 mg/dL 12/07/2024 11:30 AM EDT [facility] Comment:No reference range e stablished MICROALBUMIN/CR EATININE RATIO Test not performed 0.0 - 30.0 mg/g 12/07/2024 11:33 AM EDT [facility] Other 12/07/2024 9:51 AM EDT 12/07/2024 9:51 AM EDT us Omid Stevens LAST PATTERN GRADER LAB URINE ORDERABLES Final R esult [facility] [address] [place] [address], [facility] [address] [place] [address] documented in this encounter Visit Diagnoses Not on filedocumented in this encounter Care Teams Front Desk Supervisor Relationship Specialty Start Date End Date Diony Sharma MD [address] [place] [address] PCP - General Internal Medicine 01/24/24 Kenyetta Dove MD [address] [place] [address] Referring Physician Endocrinology 08/01/24 Siómn Ozuna MD [address] [place] [address] Referring Physician Urology 08/01/24 Amanda Montiel MD [address] [place] [address] Obstetrics and Gynecology 08/01/24 Krish Hodge MD [address] [place] [id number] Referring Physician Ophthalmology 08/01/24 Beny Hoskins MD [address] [place] [address] [address] [place] [address] Referring Physician Gastroenterology 08/01/24 [facility] Health 08/01/24 documented as of this encounter
--- OUTSIDE RECORDS SUMMARY | 2024-12-21 09:15 | XMS_ITS | Encounter Summary ---
Author Organization [facility] Address [address] [place] [address] Care Team Providers Care Marble Cutter Name Role Phone Diony Sharma MD Primary Care Provider [phone] Kenyetta Dove MD Unavailable [phone] Simón Ozuna MD Unavailable [phone] mAanda Montiel MD Unavailable [phone] Krish Hodge MD Unavailable [phone] Beny Hoskins MD Unavailable [phone] Encounter Details Date Type Department Care Team (Late st Contact Info) Description 12/10/2024 Results Follow-Up [facility] [address] [address] [place] [address] Omid Stevens, LAW INSTRUCTOR [address] [facility] [address] [place] [address] Social History Tobacco Use Types Packs/Day Years Used Date Smoking Tobacco: Every Day Cigarettes Smokeless Tobacco: Never Comments:Pt smoked 1/2 ppd s cahta age [age] years old. Alcohol Use Standard [...] Miscellaneous Notes * Result Encounter Note - Omid Stevens NP - 12/10/2024 9:44 AM EDT Advise pt that CXR is normal. A1C is 5.7, prediabetic, Sed rate is slightly elevated which is an inflammatory marker. CRP- is an inflammatory marker and is quite elevated. The other tests are not back yet and may take a few more days to pin down why the CRP is elevated. Lytes, liver, kidneys, urineare all normal. documented in this encounter Plan of Treatment Upcoming Encounters Date Type Department Care Team (Late st Contact Info) Description 02/06/2025 1:00 PM EDT Office Visit [facility] [address] [place] [phone] 02/12/2025 11:10 AM EDT Office Visit [facility] [address] [place] [address] Kenyetta Dove MD [address] [place] [address] documented as of this encounter Visit Diagnoses Not on filedocumented in this encounter Care Teams Marble Cutter Relationship Specialty Start Date End Date Diony Sharma MD [address] [place] [address] PCP - General Internal Medicine 01/24/24 Kenyetta Dove MD [address] [place] [address] Referring Physician Endocrinology 08/01/24 Simón Ozuna MD [address] [place] [address] Referring Physician Urology 08/01/24 Amanda Montiel MD [address] [place] [address] Obstetrics and Gynecology 08/01/24 Krish Hodge MD [address] [place] [address] Referring Physician Ophthalmology 08/01/24 Beny Hoskins MD [address] [place] [address] [address] [place] [address] Referring Physician Gastroenterology 08/01/24 [facility] Health 08/01/24 documented as of this encounter
--- OUTSIDE RECORDS SUMMARY | 2024-12-21 09:15 | XMS_ITS | Encounter Summary ---
Author Organization [facility] Address [address] [place] [address] Phone Care Team Providers Care Emt Intermediate Name Role Phone Simón Davidson DO Primary Care Provider + Encounter Details Date Type Department Care Team (Late st Contact Info) Description 09/20/2022 Orders Only [facility] [address] [place] [address] Conversion, Onbase Social History Tobacco Use Types [...] on filedocumented in this encounter Care Teams Emt Intermediate Relationship Specialty Start Date End Date Simón Davdison DO [address] [facility] [place] [address] PCP - General 10/21/17 documented as of this encounter
--- OUTSIDE RECORDS SUMMARY | 2024-12-21 09:15 | XMS_ITS | Encounter Summary ---
Author Organization [facility] Address [address] [place] [address] Care Team Providers Care Commissary Representative Name Role Phone Diony Sharma MD Primary Care Provider [phone] Kenyetta Dove MD Unavailable [phone] Simón Ozuna MD Unavailable [phone] Amanda Montiel MD Unavailable [phone] Krish Hodge MD Unavailable [phone] Beny Hoskins MD Unavailable [phone] Encounter Details Date Type Department Care Team (Late st Contact Info) Description 10/16/2024 Telephone [facility] [address] [place] [address] Amanda Montiel MD [address] [facility] [address] [place] [address] Social History Tobacco Use Types [...] [address] [place] [phone] 02/12/2025 11:10 AM EDT Office Visit [facility] [address] [place] [address] Kenyetta Dove MD [address] [place] [address] documented as of this encounter Visit Diagnoses Diagnosis Acute vaginitis- Primary Unspecified vaginitis and vulvovaginitis documented in this encounter Care Teams Commissary Representative Relationship Specialty Start Date End Date Diony Sharma MD [address] [place] [address] PCP - General Internal Medicine 01/24/24 Kenyetta Dove MD [address] [place] [address] Referring Physician Endocrinology 08/01/24 Simón Ozuna MD [address] [place] [address] Referring Physician Urology 08/01/24 Amanda Montiel MD [address] [place] [address] Obstetrics and Gynecology 08/01/24 Krish Hodge MD [address] [place] [address] Referring Physician Ophthalmology 08/01/24 Beny Hoskins MD [address] [place] [address] [address] [place] [address] Referring Physician Gastroenterology 08/01/24 [facility] Mental Health 08/01/24 documented as of this encounter
--- OUTSIDE RECORDS SUMMARY | 2024-12-21 09:15 | XMS_ITS | Encounter Summary ---
Author Organization [facility] Address [address] [place] [address] Phone Care Team Providers Care Bicycle Repairer Name Role Phone Simón Davidson DO Primary Care Provider + Encounter Details Date Type Department Care Team (Late st Contact Info) Description 11/09/1976 Scanned Document [facility] [address] [place] [phone] Scanning, Generic Provider Social History Tobacco Use [...] on filedocumented in this encounter Care Teams Bicycle Repairer Relationship Specialty Start Date End Date Simón Davidson DO [address] [place] [address] PCP - General 10/21/17 documented as of this encounter
--- OUTSIDE RECORDS SUMMARY | 2024-12-21 09:15 | XMS_ITS | Encounter Summary ---
Author Organization [facility] Address [address] [place] [address] Phone Care Team Providers Care Chemical Compounder Name Role Phone Simón Davidson DO Primary Care Provider + Encounter Details Date Type Department Care Team (Late st Contact Info) Description 11/05/2022 Orders Only [facility] [address] [place] [address] Conversion, Onbase Social History Tobacco Use Types [...] on filedocumented in this encounter Care Teams Chemical Compounder Relationship Specialty Start Date End Date Simón Davidson DO [address] [facility] [place] [address] PCP - General 10/21/17 documented as of this encounter
--- OUTSIDE RECORDS SUMMARY | 2024-12-21 09:15 | XMS_ITS | Encounter Summary ---
Author Organization [facility] Address [address] [place] [address] Care Team Providers Care Assistant Press Operator Name Role Phone Diony Sharma MD Primary Care Provider Kenyetta Dove MD Unavailable [phone] Simón Ozuna MD Unavailable [phone] Amanda Montiel MD Unavailable Krish Hodge MD Unavailable [phone] Beny Hoskins MD Unavailable [phone] Encounter Details Date Type Department Care Team (Latest Contact Info) Description 12/20/2024 Travel Social History Tobacco Use Types Packs/Day [...] ENDOCRINOLOGY [address] [place] [address] Kenyetta Dove MD [address] [place] [address] documented as of this encounter Visit Diagnoses Not on filedocumented in this encounter Care Teams Assistant Press Operator Relationship Specialty Start Date End Date Diony Sharma MD [address] [place] [address] PCP - General Internal Medicine 01/24/24 Kenyetta Dove MD [address] [place] [address] Referring Physician Endocrinology 08/01/24 Simón Ozuna MD [address] [place] [address] Referring Physician Urology 08/01/24 Amanda Montiel MD [address] [place] [address] Obstetrics and Gynecology 08/01/24 Krish Hodge MD [address] [place] [address] Referring Physician Ophthalmology 08/01/24 Beny Hoskins MD [address] [place] [address] [address] [place] [address] Referring Physician Gastroenterology 08/01/24 [facility] 08/01/24 documented as of this encounter
--- OUTSIDE RECORDS SUMMARY | 2024-12-21 09:15 | XMS_ITS | Encounter Summary ---
Author Organization [facility] Address [address] [place] [address] Care Team Providers Care Behavioral Specialist Name Role Phone Diony Sharma MD Primary Care Provider [phone] Kenyetta Dove MD Unavailable [phone] Simón Ozuna MD Unavailable [phone] Amanda Montiel MD Unavailable [phone] Krish Hodge MD Unavailable [phone] Beny Hoskins MD Unavailable [phone] Encounter Details Date Type Department Care Team (Late st Contact Info) Description 12/07/2024 External Result Encounter [facility] External Department Unsolicited Omid Stevens, GROCERY PACKER [address] [place] [address] Social History Tobacco Use Types Packs/Day Years [...] [address] [place] [phone] 02/12/2025 11:10 AM EDT Office Visit [facility] [address] [place] [address] Kenyetta Dove MD [address] [place] [address] documented as of this encounter Procedures Procedure Name Priority Date/Time Associated Diagnosis Comments URINALYSIS REFLEX Routine 12/07/2024 9:5 1 AM EDT documented in this encounter Results * Urinalysis with reflex microscopic (12/07/2024 9:51 AM EDT) COLOR,URINE Light-Yellow Yellow 12/07/2024 10:59 AM EDT [facility] APPEARANCE,URI NE Clear Clear 12/07/2024 10:59 AM EDT [facility] SPECIFICY GRAVITY,URINE 1.023 1.001 - 1.030 12/07/2024 10:59 AM EDT [facility] PH,URINE 7.0 5.0 - 9.0 12/07/2024 10:59 AM EDT [facility] LEUKOCYTE ESTERASE,URINE Negative Negative 12/07/2024 10:59 AM EDT [facility] NITRITE,URINE Negative Negative 12/07/2024 10:59 AM EDT [facility] PROTEIN,URINE Negative Negative mg/dL 12/07/2024 10:59 AM EDT [facility] GLUCOSE,URINE (UA) Normal Normal mg/dL 12/07/2024 10:59 AM EDT [facility] KETONES,URINE Negative Negative 12/07/2024 10:59 AM EDT [facility] UROBILINOGEN,U RINE Normal Normal mg/dL 12/07/2024 10:59 AM EDT [facility] BILIRUBIN,URIN E Negative Negative 12/07/2024 10:59 AM EDT [facility] OCCULT BLOOD,URINE Negative Negative 12/07/2024 10:59 AM EDT [facility] RBC,URINE 1-2 0 - 4 [HPF] 12/07/2024 11:00 AM EDT [facility] WBC,URINE 1-2 0 - 4 [HPF] 12/07/2024 11:00 AM EDT [facility] SQUAMOUS EPITHELIAL CELL,URINE 1-2 0 - 2 [HPF] 12/07/2024 11:00 AM EDT [facility] BACTERIA,URINE None Seen None Seen [HPF] 12/07/2024 11:00 AM EDT [facility] HYALINE CASTS,URINE None 0 - 8 [LPF] 12/07/2024 11:00 AM EDT [facility] MUCUS,URINE Rare [LPF] 12/07/2024 11:00 AM EDT [facility] Other 12/07/2024 9:51 AM EDT 12/07/2024 9:51 AM EDT Narrative [facility] - 12/07/2024 11:00 AM EDT Name Collection Type:: Clean-Voided Midstream us Omid Stevens GROCERY PACKER LAB URINE ORDERABLES Final R esult [facility] [address] [place] [address], [facility] [address] [place] [address] documented in this encounter Visit Diagnoses Not on filedocumented in this encounter Care Teams Behavioral Specialist Relationship Specialty Start Date End Date Diony Sharma MD [address] [place] [address] PCP - General Internal Medicine 01/24/24 Kenyetta Dove MD [address] [place] [address] Referring Physician Endocrinology 08/01/24 Simón Ozuna MD [address] [facility] [place] [place] [address] Referring Physician Urology 08/01/24 Amanda Montiel MD [address] [place] [address] Obstetrics and Gynecology 08/01/24 Krish Hodge MD [address] [place] [address] Referring Physician Ophthalmology 08/01/24 Beny Hoskins MD [address] [place] [address] [address] [place] [address] Referring Physician Gastroenterology 08/01/24 [facility] Mental Health 08/01/24 documented as of this encounter
--- OUTSIDE RECORDS SUMMARY | 2024-12-21 09:16 | XMS_ITS | Encounter Summary ---
Author Organization [facility] Address [address] [place] [address] Phone Care Team Providers Care Electrical Development Engineer Name Role Phone Simón Davidson DO Primary Care Provider + Encounter Details Date Type Department Care Team (Late st Contact Info) Description 03/17/2023 Scanned Document [facility] [address] [place] [phone] Scanning, Generic Provider Social History Tobacco Use [...] on filedocumented in this encounter Care Teams Electrical Development Engineer Relationship Specialty Start Date End Date Simón Davidson DO [address] [facility] [place] [address] PCP - General 10/21/17 documented as of this encounter
--- OUTSIDE RECORDS SUMMARY | 2024-12-21 09:16 | XMS_ITS | Encounter Summary ---
Author Organization [facility] Address [facility] [place] [address] Care Team Providers Care Leather Cleaner Name Role Phone Simón Davidson DO Unavailable [phone] Source Comments In the event this information is protected by the Federal Confidentiality of Alcohol and Drug AbusePatient Records regulations: The Federal rules restrict any use of the information to criminally investigate or prosecute any alcohol or drug abuse patient.[facility] Encounter Details Date Type Department Care Team (Late st Contact Info) Description 07/07/2023 Get Medical Advice Rheumatology [address] [facility] [place] [address] Stephie Brambila MD [address] [place] [address] Waiting for response Social History [...] is lower risk 4 05/17/2023 Data from: https://www.neighborhoodatlas.medicine.[facility].edu/. Last address used for calculation [place] [...] Assessment Author No 01/18/2014 2:33 PM EDT oRula Gold * Are you blind or do [...] on filedocumented in this encounter Care Teams Leather Cleaner Relationship Specialty Start Date End Date Simón Davidson DO Referring Family Medicine 11/22/22 documented as of this encounter
--- OUTSIDE RECORDS SUMMARY | 2024-12-21 09:16 | XMS_ITS | Encounter Summary ---
Author Organization [facility] Address [address] [place] [address] Phone Care Team Providers Care Tobacco Sampler Name Role Phone Simnó Davidson DO Primary Care Provider + Encounter Details Date Type Department Care Team (Late st Contact Info) Description 12/20/2022 Orders Only [facility] LE[facility] [address] [place] [address] Conversion, Onbase Social History Tobacco Use Types [...] on filedocumented in this encounter Care Teams Tobacco Sampler Relationship Specialty Start Date End Date Simón Davidson DO [address] [facility] [place] [address] PCP - General 10/21/17 documented as of this encounter
--- OUTSIDE RECORDS SUMMARY | 2024-12-21 09:16 | XMS_ITS | Clinical Summary ---
Author Organization [facility] Address [address] [place] [address] Phone Care Team Providers Care Ammunition Supervisor Name Role Phone StuartSimón Nils Primary Care [...] PART A AND B MEDICAID Care Teams Ammunition Supervisor Relationship Specialty Start Date End Date Simón Davidson DO [address] [place] [id number] PCP - General 10/21/17
--- OUTSIDE RECORDS SUMMARY | 2024-12-21 09:16 | XMS_ITS | Encounter Summary ---
Author Organization [facility] Address [facility] [place] [address] Care Team Providers Care Office Inspector Name Role Phone Simón Davidson DO Unavailable [phone] Source Comments In the event this information is protected by the Federal Confidentiality of Alcohol and Drug AbusePatient Records regulations: The Federal rules restrict any use of the information to criminally investigate or prosecute any alcohol or drug abuse patient.[facility] Encounter Details Date Type Department Care Team (Late st Contact Info) Description 06/28/2023 Get Medical Advice Rheumatology [address] [facility] [place] [address] Stephie Brambila MD [address] [place] [address] Follow up for testing Social [...] is lower risk 4 05/17/2023 Data from: https://www.neighborhoodatlas.medicine.[facility].edu/. Last address used for calculation [place] [...] on filedocumented in this encounter Care Teams Office Inspector Relationship Specialty Start Date End Date Simón Davidson DO Referring Family Medicine 11/22/22 documented as of this encounter
== END 2024-12-21 09:13 | disposition home or self-care (01) ==
PROVIDERS: Visit Provider Nurse Practitioner
DX: M54.50 Low back pain, unspecified (principal)
CPT/HCPCS: G0463

== ENCOUNTER 2024-12-31 14:29 | Outpatient (OUT) | payer MEDICARE, MEDICAID, SELFPAY ==
--- OUTSIDE RECORDS SUMMARY | 2024-10-08 10:45 | XMS_ITS ---
Author Organization [facility] Address [address] [place] [address] Care Team Providers Care Circuit Board Drafter Name Role Phone Radha Mcintosh Primary Care Provider Gissell Kaufman Unavailable [phone] REASON FOR VISIT 3 month f/u Encounters Encounter Location Date Provider Diagnosis [facility] [address] [place] [address] 10/08/2024 Radha Mcintosh Plan Of Treatment Next Appt Details Provider Name:Radha Mcintosh, 0 01/16/2025 01:45:00 PM, [address] [place], [address], Provider Name:Bob Niranjan, 0 02/21/2025 10:35:00 AM, [address], [place], [address], Provider Name:Gissell Kaufman , 07/04/2025 02:20:00 PM, [address], [place], [address], Progress Notes * VANI TORIBIO:1975 ([age] yo F)Acc No.[id number]:10/08/2024 Behavioral Health Patient: Brent EMILY RIVERA Appointment Provider: Kaiden Mcintosh :1975 A ge:49 Y S ex:Female Date:10/08/2024 Address:[address], [place], [id number] Subjective: * Chief Complaints: * 1 . 3 month f/u. * Medical History: Objective: * Vitals: Assessment: Plan: * Treatment: * Images: * Electronic signature of MARIBEL Mckinney on 12/31/2024 at 02:31 PM EDT Sign off status: Pending * Appointment Provider: Kaiden Mcintosh Date: 0 10/08/2024 Generated for Joshua saunders/Debora/Yo on: 0 12/31/2024 02:31 PM EDT
--- OUTSIDE RECORDS SUMMARY | 2024-12-19 11:45 | XMS_ITS | Encounter Summary ---
Author Organization [facility] Address [address] [place] [address] Care Team Providers Care Global Marketing Specialist Name Role Phone Diony Sharma MD Primary Care Provider [phone] Kenyetta Dove MD Unavailable [phone] Simón Ozuna MD Unavailable [phone] Amanda Montiel MD Unavailable [phone] Krish Hodge MD Unavailable [phone] Beny Hoskins MD Unavailable [phone] Reason for Visit * Imaging (Routine) - Closed Specialty Diagnoses / Procedures Referred By Yared madera Referred To Contact Radiology Diagnoses Bilateral lower extremity edema Pain of upper abdomen Procedures CT abdomen pelvis w IV contrast Shilpa Menendez, MARITZA [address] [place] [address] Phone: tel: fax: [facility] [address] [place] [address] Phone: tel: fax: Referral ID Status Reason Start Date Expiration Date Visits Re quested Visits Authorized [id number] Closed 12/13/2024 06/11/2025 1 1 Encounter Details Date Type Department Care Team (Latest Contact Info) Description 12/19/2024 11:45 AM EDT Ancillary Procedure [facility] [address] [place] [address] Vitamin D deficiency (Primary Dx) Social History [...] Description 02/06/2025 1:00 PM EDT Office Visit [facility] [address] [place] [address] 02/12/2025 11:10 AM EDT Office Visit [facility] [address] [place] [address] Kenyetta Dove MD [address] [place] [address] documented as of this encounter Procedures Procedure [...] mL documented in this encounter Care Teams Global Marketing Specialist Relationship Specialty Start Date End Date Diony Sharma MD [address] [place] [address] PCP - General Internal Medicine 01/24/24 Kenyetta Dove MD [address] [place] [address] Referring Physician Endocrinology 08/01/24 Simón Ozuna MD [address] [place] [address] Referring Physician Urology 08/01/24 Amanda Montiel MD [address] [place] [address] Obstetrics and Gynecology 08/01/24 [place] [address] [place] [address] Referring Physician Ophthalmology 08/01/24 Beny Hoskins MD [address] [place] [address] [address] [place] [address] Referring Physician Gastroenterology 08/01/[address] [facility] 08/01/24 documented as of this encounter
--- OUTSIDE RECORDS SUMMARY | 2024-12-20 15:00 | XMS_ITS | Encounter Summary ---
Author Organization [facility] Address [address] [place] [address] Care Team Providers Care Stock Holder Name Role Phone Diony Sharma MD Primary Care Provider [phone] Kenyetta Dove MD Unavailable [phone] Simón Ozuna MD Unavailable [phone] Amanda Montiel MD Unavailable [phone] Krish Hodge MD Unavailable [phone] Beny Hoskins MD Unavailable [phone] Reason for Visit * Reason Comments 2 Week Follow Up Bilateral extremity edema continues. Weight gain of 3.6 # since 12/13 OV. Appointment scheduled with Dr Redding 12/26/2024 Encounter Details Date Type Department Care Team (Late st Contact Info) Description 12/20/2024 3:00 PM EDT Office Visit [facility] [address] [address] [place] [address] Shilpa Menendez PA [address] [place] [address] Bilateral lower extremity edema (Primary Dx); Hepatomegaly [...] Morbid obesity with BMI of 40.0-44.9, adult ([facility]) Nonscarring hair loss, unspecified Postprocedural hypothyroidism [...] MEDICATIONS: Current Outpatient Medications Medication Instructions B Npunsdu-Vjgwzb-ZV (Super Quints B-50) tablet Take by mouth [...] (<1800 mg/day) and saturated fats, following the [place] [employer] guidelines. - The use of [...] importance of probiotics and prebiotics, such as Croatian yogurt and luis seeds, was discussed to [...] 02/06/2025 1:00 PM EDT Office Visit [facility] [place] [facility] [address] [place] [address] 02/12/2025 11:10 AM EDT Office Visit [facility] [address] [place] [address] Kenyetta Dove MD [address] [place] [address] documented as of this encounter Visit Diagnoses Diagnosis Bilateral lower extremity edema- Primary Hepatomegaly documented in this encounter Care Teams Stock Holder Relationship Specialty Start Date End Date Diony Sharma MD [address] [place] [address] PCP - General Internal Medicine 01/24/24 Kenyetta Dove MD [address] [place] [address] Referring Physician Endocrinology 08/01/24 Simón Ozuna MD [address] [place] [address] Referring Physician Urology 08/01/24 Amanda Montiel MD [address] [place] [address] Obstetrics and Gynecology 08/01/24 Krish Hodge MD [address] [place] [address] Referring Physician Ophthalmology 08/01/24 Beny Hoskins MD [address] [place] [address] [address] [place] [address] Referring Physician Gastroenterology 08/01/24 [facility] 08/01/24 documented as of this encounter
--- OUTSIDE RECORDS SUMMARY | 2024-12-31 14:31 | XMS_ITS | Encounter Summary ---
Author Organization [facility] Address [address] [place] [address] Care Team Providers Care Park Aide Name Role Phone Simón Davidson MD Primary Care Provider [phone] Diony Sharma MD Primary Care Provider [phone] Kenyetta Dove MD Unavailable [phone] Simón Ozuna MD Unavailable [phone] Amanda Montiel MD Unavailable [phone] Krish Hodge MD Unavailable [phone] Beny Hoskins MD Unavailable [phone] Encounter Details Date Type Department Care Team ([facility] Contact Info) Description 01/23/2024 Orders Only [facility] [place] [facility] [address] [facility] [address] [facility] [address] [place] [address] A, Unknown Practice [address] [place], [place] [phone] Social History Tobacco Use Types Packs/Day Years [...] Upcoming Encounters Date Type Department Care Team ([facility] Contact Info) Description 02/06/2025 1:00 PM EDT Office Visit [facility] [place] [facility] [address] [place] [address] 02/12/2025 11:10 AM EDT Office Visit [facility] [place] [facility] [address] [place] [address] Kenyetta Dove MD [address] [place] [address] documented as of this encounter Procedures Procedure [...] on filedocumented in this encounter Care Teams Park Aide Relationship Specialty Start Date End Date Simón Davidson MD [address] [place] [address] PCP - General Classifications Officer Cc/Cm 01/16/24 01/23/24 Diony Sharma MD [address] [place] [address] PCP - General Internal Medicine 01/24/24 Kenyetta Dove MD [address] [place] [address] Referring Physician Endocrinology 08/01/24 Simón Ozuna MD [address] [place] [address] Referring Physician Urology 08/01/24 Amanda Montiel MD [address] [facility] [address] [place] [address] Obstetrics and Gynecology 08/01/24 Krish Hodge MD [address] [place] [address] Referring Physician Ophthalmology 08/01/24 Beny Hoskins MD [address] [place] [address] [address] [place] [address] Referring Physician Gastroenterology 08/01/24 [facility] Mental Health 08/01/24 documented as of this encounter
--- OUTSIDE RECORDS SUMMARY | 2024-12-31 14:31 | XMS_ITS | Encounter Summary ---
Author Organization [facility] Address [address] [place] [address] Care Team Providers Care Watershed Engineer Name Role Phone Diony Sharma MD Primary Care Provider [phone] Kenyetta Dove MD Unavailable [phone] Simón Ozuna MD Unavailable [phone] Amanda Montiel MD Unavailable [phone] Krish Hodge MD Unavailable Beny Hoskins MD Unavailable [phone] Encounter Details Date Type Department Care Team [...] Medicine [address] [place] [address] 02/12/2025 11:10 AM EDT Office Visit [facility] [place] [facility] [address] [place] [address] Kenyetta Dove MD [address] [place] [address] documented as of this encounter Visit Diagnoses Not on filedocumented in this encounter Care Teams Watershed Engineer Relationship Specialty Start Date End Date Diony Sharma MD [address] [place] [address] PCP - General Internal Medicine 01/24/24 Kenyetta Dove MD [address] [place] [address] Referring Physician Endocrinology 08/01/24 Simón Ozuna MD [address] [place] [address] Referring Physician Urology 08/01/24 Amanda Montiel MD [address] [place] [address] Obstetrics and Gynecology 08/01/24 Krish Hodge MD [address] [place] [address] Referring Physician Ophthalmology 08/01/24 Beny Hoskins MD [address] [place] [address] [address] [place] [address] Referring Physician Gastroenterology 08/01/24 [facility] Mental Health 08/01/24 documented as of this encounter
--- OUTSIDE RECORDS SUMMARY | 2024-12-31 14:31 | XMS_ITS | Encounter Summary ---
Author Organization [facility] Address [address] [place] [address] Care Team Providers Care Dairy Inspector Name Role Phone Diony Sharma MD Primary Care Provider [phone] Kenyetta Dove MD Unavailable [phone] Simón Ozuna MD Unavailable [phone] Amanda Montiel MD Unavailable [phone] Krish Hodge MD Unavailable [phone] Beny Hoskins MD Unavailable [phone] Encounter Details Date Type Department Care Team (Late st Contact Info) Description 12/20/2024 Results Follow-Up [facility] Internal Medicine [address] [email or web address] [address] [place] [address] Shilpa Menendez, MARITZA [address] [facility] [address] [place] [address] Social History Tobacco Use Types [...] [address] [place] [phone] 02/12/2025 11:10 AM EDT [facility] [address] [place] [id number] Kenyetta Dove MD [address] [place] [address] documented as of this encounter Visit Diagnoses Not on filedocumented in this encounter Care Teams Dairy Inspector Relationship Specialty Start Date End Date Diony Sharma MD [address] [place] [address] PCP - General Internal Medicine 01/24/24 Kenyetta Dove MD [address] [place] [address] Referring Physician Endocrinology 08/01/24 Simón Ozuna MD [address] [place] [address] Referring Physician Urology 08/01/24 Amanda Montiel MD [address] [place] [address] Obstetrics and Gynecology 08/01/24 Krish Hodge MD [address] [place] [address] Referring Physician Ophthalmology 08/01/24 Beny Hoskins MD [address] [place] [address] Referring Physician Gastroenterology 08/01/24 [facility] Mental Health 08/01/24 documented as of this encounter
--- OUTSIDE RECORDS SUMMARY | 2024-12-31 14:31 | XMS_ITS | Encounter Summary ---
Author Organization [facility] Address [address] [place] [address] Phone Care Team Providers Care Aerospace Control And Warning Systems Name Role Phone Simón Davidson DO Primary Care Provider + Encounter Details Date Type Department Care Team (Late st Contact Info) Description 11/09/1976 Scanned Document [facility] [address] [place] [phone] Scanning, Generic Provider Social History Tobacco Use [...] on filedocumented in this encounter Care Teams Aerospace Control And Warning Systems Relationship Specialty Start Date End Date Simón Davidson DO [address] [place] [address] PCP - General 10/21/17 documented as of this encounter
--- OUTSIDE RECORDS SUMMARY | 2024-12-31 14:31 | XMS_ITS | Encounter Summary ---
Author Organization [facility] Address [address] [place] [address] Care Team Providers Care Paper Machine Operator Name Role Phone Diony Sharma MD Primary Care Provider [phone] Kenyetta Dove MD Unavailable [phone] Simón Ozuna MD Unavailable [phone] Amanda Montiel MD Unavailable [phone] Krish Hodge MD Unavailable [phone] Beny Hoskins MD Unavailable [phone] Encounter Details Date Type Department Care Team [...] Medicine [address] [place] [address] 02/12/2025 11:10 AM EDT Office Visit [facility] [place] [facility] [address] [place] [address] Kenyetta Dove MD [address] [place] [address] documented as of this encounter Visit Diagnoses Not on filedocumented in this encounter Care Teams Paper Machine Operator Relationship Specialty Start Date End Date Diony Sharma MD [address] [place] [address] PCP - General Internal Medicine 01/24/24 Kenyetta Dove MD [address] [place] [address] Referring Physician Endocrinology 08/01/24 Simón Ozuna MD [address] [place] [address] Referring Physician Urology 08/01/24 Amanda Montiel MD [address] [place] [address] Obstetrics and Gynecology 08/01/24 Krish Hodge MD [address] [place] [address] Referring Physician Ophthalmology 08/01/24 Beny Hoskins MD [address] [place] [address] [address] [place] [address] Referring Physician Gastroenterology 08/01/24 [facility] Mental Health 08/01/24 documented as of this encounter
--- OUTSIDE RECORDS SUMMARY | 2024-12-31 14:31 | XMS_ITS | Encounter Summary ---
Author Organization [facility] Address [address] [place] [address] Care Team Providers Care Warehouse Team Leader Name Role Phone Diony Sharma MD Primary Care Provider [phone] Kenyetta Dove MD Unavailable [phone] Simón Ozuna MD Unavailable [phone] Amanda Montiel MD Unavailable [phone] Krish Hodge MD Unavailable [phone] Beny Hoskins MD Unavailable [phone] Encounter Details Date Type Department Care Team (Late st Contact Info) Description 02/22/2024 Orders Only [facility] [address] [place] [address] Kenyetta Dove MD [address] [place] [address] Social History Tobacco Use Types [...] [address] [place] [address] 02/12/2025 11:10 AM EDT Office Visit [facility] [address] [place] [address] Kenyetta Dove MD [address] [place] [address] documented as of this encounter Procedures Procedure [...] on filedocumented in this encounter Care Teams Warehouse Team Leader Relationship Specialty Start Date End Date Diony Sharma MD [address] [place] [address] PCP - General Internal Medicine 01/24/24 Kenyetta Dove MD [address] [place] [address] Referring Physician Endocrinology 08/01/24 Simón Ozuna MD [address] [place] [address] Referring Physician Urology 08/01/24 Amanda Montiel MD [address] [place] [address] Obstetrics and Gynecology 08/01/24 Krish Hodge MD [address] [id number] Referring Physician Ophthalmology 08/01/24 Beny Hoskins MD [address] [place] [address] [address] [place] [address] Referring Physician Gastroenterology 08/01/24 [facility] 08/01/24 documented as of this encounter
--- OUTSIDE RECORDS SUMMARY | 2024-12-31 14:31 | XMS_ITS | Clinical Summary ---
Author Organization [facility] Address [address] [place] [address] Care Team Providers Care Aircraft Pilot Name Role Phone Diony Sharma MD Primary Care Provider [phone] Kenyetta Dove MD Unavailable [phone] Simón Ozuna MD Unavailable [phone] Amanda Montiel MD Unavailable [phone] Krish Hodge MD Unavailable [phone] Beny Hoskins MD Unavailable [phone] Allergies No known active allergies Medications B Ohbulpq-Juwroo-LZ (Super Quints B-50) tablet Take by mouth [...] by mouth Active liothyronine (Cytomel) 5 MCG tabletIndications: Acquired hypothyroidism Take 1 tablet (5 mcg) by mouth Daily 90 tablet 1 05/08/20 24 Active escitalopram (Lexapro) 20 MG tablet Take 20 mg by mouth Daily Active levothyroxine (Synthroid, Levoxyl) 125 MCG tabletIndications: Postoperative hypothyroidism Take 1 tablet (125 mcg) by mouth Daily 90 tablet 3 08/15/19 25 Active cholecalciferol (Vitamin D-3) 50 MCG (1999) capsuleIndications :Primary osteoarthritis involving multiple joints Take 1 capsule (50 mcg) by mouth in the morning. 30 capsule 11 09/25/19 25 Active metroNIDAZOLE (Metrogel) 0.75 % gelIndications:Ros acea Apply twice daily to rosacea for 8 weeks. 45 g 10/10/19 25 Active nystatin (Mycostatin) ointmentIndication s:Cutaneous Candidiasis Apply thin film BID prn irritation 30 g 1 10/17/19 25 Active losartan-hydroCHLO ROthiazide (Hyzaar) 100-12.5 MG tablet Take 1 tablet by mouth Daily Active dilTIAZem XR (Dilacor XR) 240 MG 24 hr capsule Take 240 mg by mouth Daily 025 Discontin ued(Thera py completed ) potassium chloride CR (Klor-Con M10) 10 MEQ ER tabletIndications: Bilateral lower extremity edema Take 1 tablet (10 mEq) by mouth Daily Do not crush or chew. 11/29/19 25 025 Discontin ued(Thera py completed ) furosemide (Lasix) 40 MG tabletIndications: Bilateral lower extremity edema Take 1 tablet (40 mg) by mouth Daily 11/29/19 25 025 Discontin ued(Thera py completed ) dilTIAZem CD (Cardizem CD) 240 MG 24 hr capsule Take 240 mg by mouth Daily 09/21/19 25 025 Discontin ued(Thera py completed ) minocycline 50 MG capsule TAKE 1 CAPSULE BY MOUTH EVERY DAY WITH FOOD 09/19/19 025 Discontin ued(Thera py completed ) Hospital, Clinic, or Other Facility Administered Medication [...] [address] [place] [address] Shilpa Menendez PA Bilateral lower extremity edema (Primary Dx); Hepatomegaly 12/20/2024 Travel 12/20/2024 Results Follow-Up [facility] [address] [place] [address] Shilpa Menendez PA 12/19/2024 11:45 AM EDT Ancillary Procedure [facility] [address] [place] [address] Vitamin D deficiency (Primary Dx) 12/19/2024 Travel 12/13/2024 10:45 AM EDT Office Visit [facility] [address] [place] [address] Diony Sharma MD Bilateral lower extremity edema (Primary Dx); Pulmonary hypertension (HCC); Dyspnea, unspecified type; Essential hypertension ; Medicare annual wellness visit, subsequent; ACP (advance care planning); Obstructive sleep apnea syndrome; Pain of upper abdomen 12/13/2024 Travel 12/10/2024 Results Follow-Up [facility] [address] [place] [address] Omid Stevens, CELL POURER 12/10/2024 Results Follow-Up [facility] [address] [place] [address] Omid Stevens, CELL POURER 12/07/2024 External Result Encounter [facility] External Department Unsolicited Omid Stevens, CELL POURER 12/07/2024 External Result Encounter [facility] External Department Unsolicited Omid Stevens, CELL POURER 12/07/2024 External Result Encounter [facility] External Department Unsolicited Omid Stevens, CELL POURER 12/07/2024 External Result Encounter [facility] External Department Unsolicited Omid Stevens, CELL POURER 12/07/2024 External Result Encounter [facility] External Department Unsolicited Omid Stevens, CELL POURER 12/07/2024 External Result Encounter [facility] External Department Unsolicited Omid Stevens, CELL POURER 12/07/2024 External Result Encounter [facility] External Department Unsolicited Omid Stevens, CELL POURER 12/07/2024 External Result Encounter [facility] External Department Unsolicited Omid Stevens, CELL POURER 12/06/2024 3:30 PM EDT Office Visit [facility] [address] [place] [address] Omid Stevens, CELL POURER Bilateral lower extremity edema (Primary Dx); Pulmonary hypertension (HCC); Dyspnea, unspecified type; Snoring; Anasarca; Essential hypertension ; History of anemia; Hypoalbuminemia; Hypoproteinemia (HCC) 12/06/2024 Travel 11/28/2024 Telephone [facility] [address] [place] [address] Fuastino Zuñiga [place] 11/21/2024 10:15 AM EDT Office Visit [facility] [address] [place] [address] Dalia Mar R, CELL POURER Bilateral lower extremity edema (Primary Dx); Essential hypertension ; Pulmonary hypertension (HCC); Cellulitis of right lower extremity; Snoring 11/21/2024 Results Follow-Up [facility] [address] [place] [address] Dalia Mar R, CELL POURER Bilateral lower extremity edema; Sciatica, unspecified laterality 11/21/2024 Travel 11/09/2024 External Result Encounter [facility] External Department Unsolicited Shilpa Menendez PA 10/16/2024 Telephone [facility] [address] [place] [address] Amanda Montiel MD 10/16/2024 Telephone [facility] [address] [place] [address] Liliya Escobedo LPN 10/16/2024 Orders Only [facility] [address] [place] [address] Amanda Montiel MD Acute vaginitis (Primary Dx) 10/16/2024 Orders Only [facility] [address] [place] [address] Kenyetta Dove MD Abnormal cortisol level (Primary Dx) 10/09/2024 10:15 AM EDT Office Visit [facility] [address] [place] [address] Shilpa Menendez PA Lower extremity edema (Primary Dx); SOB (shortness of breath) on exertion; Bilateral leg edema; Rosacea 10/09/2024 Results Follow-Up [facility] [address] [place] [address] Shilpa Menendez PA Bilateral leg edema; Venous insufficiency 10/09/2024 Travel from Last 3 Months Immunizations Immunization Administration [...] Medicine [address] [place] [address] 02/12/2025 11:10 AM EDT Office Visit [facility] [address] [place] [address] Kenyetta Dove MD [address] [place] [address] Health Maintenance Due Date Last Done Comments [...] THINPREP TIS PAP REFLEX HPV MRNA E6/E7 (63016) Routine 11/07/2018 from Last 3 Months or [...] Thacker M.D. 12/07/2024 11:37 AM Dictation Location: [place] [address] Transcribed By: BOB 12/07/24 1137 Dictated By: Rizwana Thacker MD 12/07/24 1137 Signed By: <Electronically signed by MD Rizwana Thacker in OV> 12/07/24 1137 Narrative 12/07/2024 11:40 AM EDT [facility] [place] [address] [place] [address] XRay Report Signed Patient: Lupe Pickard MR#: [id number] : 1975 Acct:[id number] Age/Sex: 49 / F ADM Date: 12/07/24 Loc: XD Room: Type: [facility] CLI Attending Dr: Omid Stevens RN, MSN, ANP-C [...] XR/XR chest 2V* Procedure Note Radiology, Radiologist, MD - 12/07/2024 [facility] [place] [address] XRay Report Signed Patient: Lupe Pickard MMR#: [id number] : 1975Acct:[id number] Age/Sex: 49 / FADM Date: 12/07/24 Loc: XD [facility]: Omid Stevens RN, MSN, ANP-C [...] Thacker M.D. 12/07/2024 11:37 AM Dictation Location: [place] [address] Transcribed By: [facility] 12/07/24 1137 Dictated By: Rizwana Thacker MD 12/07/24 1137 Signed By: <Electronically signed by MD Rizwana Thacker in OV> 12/07/24 1137 us Omid Stevens CELL POURER IMG XR PROCEDURES Final Resu lt * FREE K+L LT CHAINS, QN, S (12/07/2024 9:51 AM EDT) FREE KAPPA LIGHT CHAINS, S 12.3 3.3 - 19.4 mg/L 12/10/2024 2:36 PM EDT [facility] FREE LAMBDA LIGHT CHAINS, S 14.2 5.7 - 26.3 mg/L 12/10/2024 2:36 PM EDT [facility] KAPPA/LAMBDA RATIO, S 0.87 0.26 - 1.65 12/10/2024 2:36 PM EDT [facility] Comment: Performed at: [address] [id number] Presidential Support Specialist: Ramirez Ca PhD, Phone: [phone] Other Topography unknown / Unknown 12/07/2024 9:51 AM EDT 12/07/2024 9:51 AM EDT us Omid Stevens CELL POURER LAB BLOOD ORDERABLES Final R esult [facility] [address] [place] [address], * (ABNORMAL) Hemoglobin a1c with eag (12/07/2024 9:51 AM EDT) HEMOGLOBIN A1C 5.7(H) 4.3 - 5.6 % 12/07/2024 12:35 PM EDT [facility] Comment: Increased risk for diabetes: 5.7 - 6.4 diabetes: >6.4 glycemic control for adults with diabetes: <7.0 ESTIMATED AVERAGE GLUCOSE 117 mg/dL 12/07/2024 12:35 PM EDT [facility] Blood (Blood) 12/07/2024 9:5 1 AM EDT 12/07/2024 9:51 AM EDT us Omid Stevens CELL POURER LAB BLOOD ORDERABLES Final R esult Performing Organization Address City/[facility] Co de Phone Number [address] [address], [address] [address] * Microalbumin / creatinine urine ratio (12/07/2024 9:51 AM EDT) Only the most recent of2 resultswithin the time period is included. MICROALBUMIN, URINE <0.7 0.0 - 1.8 mg/dL 12/07/2024 11:33 AM EDT [facility] CREATININE, URINE (RANDOM) 75.00 mg/dL 12/07/2024 11:30 AM EDT [facility] Comment:No reference range e stablished MICROALBUMIN/CR EATININE RATIO Test not performed 0.0 - 30.0 mg/g 12/07/2024 11:33 AM EDT [facility] Other 12/07/2024 9:51 AM EDT 12/07/2024 9:51 AM EDT us Omid Stevens CELL POURER LAB URINE ORDERABLES Final R esult Performing Organization Address [facility] Co de Phone Number [address] [address], [facility] [address] [place] [address] * Urinalysis with reflex microscopic (12/07/2024 9:51 AM EDT) COLOR,URINE Light-Yellow Yellow 12/07/2024 10:59 AM EDT [facility] APPEARANCE,URI NE Clear Clear 12/07/2024 10:59 AM [facility] SPECIFICY GRAVITY,URINE 1.023 1.001 - 1.030 12/07/2024 10:59 AM [facility] PH,URINE 7.0 5.0 - 9.0 12/07/2024 10:59 AM [facility] LEUKOCYTE ESTERASE,URINE Negative Negative 12/07/2024 10:59 AM [facility] NITRITE,URINE Negative Negative 12/07/2024 10:59 AM [facility] PROTEIN,URINE Negative Negative mg/dL 12/07/2024 10:59 AM [facility] GLUCOSE,URINE (UA) Normal Normal mg/dL 12/07/2024 10:59 AM [facility] KETONES,URINE Negative Negative 12/07/2024 10:59 AM [facility] UROBILINOGEN,U RINE Normal Normal mg/dL 12/07/2024 10:59 AM [facility] BILIRUBIN,URIN E Negative Negative 12/07/2024 10:59 AM [facility] OCCULT BLOOD,URINE Negative Negative 12/07/2024 10:59 AM [facility] RBC,URINE 1-2 0 - 4 [HPF] 12/07/2024 11:00 AM [facility] WBC,URINE 1-2 0 - 4 [HPF] 12/07/2024 11:00 AM [facility] SQUAMOUS EPITHELIAL CELL,URINE 1-2 0 - 2 [HPF] 12/07/2024 11:00 AM [facility] BACTERIA,URINE None Seen None Seen [HPF] 12/07/2024 11:00 AM [facility] HYALINE CASTS,URINE None 0 - 8 [LPF] 12/07/2024 11:00 AM [facility] MUCUS,URINE Rare [LPF] 12/07/2024 11:00 AM [facility] Other 12/07/2024 9:51 AM EDT 12/07/2024 9:51 AM EDT [facility] - 12/07/2024 11:00 AM EDT Name Collection Type:: Clean-Voided Midstream us Omid Stevens CELL POURER LAB URINE ORDERABLES Final R esult Performing Organization Address [facility] Co de Phone Number [place] [phone], [place] [phone] * (ABNORMAL) Sedimentation rate, automated (12/07/2024 9:51 AM EDT) [facility] ERYTHROCYTE SEDIMENTATION RATE 22(H) 0 - 19 12/07/2024 11:25 AM EDT [facility] Blood (Blood) 12/07/2024 9:5 1 AM EDT 12/07/2024 9:51 AM EDT Omid Stevens CELL POURER LAB BLOOD ORDERABLES Final R esult Performing Organization Address [facility] de Phone Number [place] [phone], [place] [phone] * Rheumatoid factor (12/07/2024 9:51 AM EDT) [facility] RHEUMATOID FACTOR 10.4 <14.0 12/08/2024 4:36 AM EDT [facility] Comment: Performed at: [facility] [address] [id number] Presidential Support Specialist: Ramirez Ca PhD, Phone: [phone] Other Topography unknown / Unknown 12/07/2024 9:51 AM EDT 12/07/2024 9:51 AM EDT Omid Stevens CELL POURER LAB BLOOD ORDERABLES Final R esult Performing Organization Address City/[facility] Co de Phone Number [place] [phone], * (ABNORMAL) High sensitivity CRP (12/07/2024 9:51 AM EDT) [facility] HIGH SENSITIVE CRP 15.7(H) 0.0 - 0.9 mg/L 12/07/2024 11:19 AM EDT [facility] Comment: Cardiovascular Risk Classification (AHA/CDC) hsCRP [...] EDT 12/07/2024 9:51 AM EDT Omid Stevens CELL POURER LAB BLOOD ORDERABLES Final R esult Performing Organization Address [facility] [place] [address], [place] [phone] * WILL (12/07/2024 9:51 AM EDT) ANTINUCLEAR ABS, IFA Negative . 12/10/2024 9:08 AM EDT [facility] Comment: Negative <1:80 Borderline 1:80 Positive >1:80 ICAP nomenclature: AC-0 For more information about Hep-2 cell patterns use ANApatterns.org, the official website for the International Consensus on Antinuclear Antibody (WILL) Patterns (ICAP). Performed at: - [address] [id number] Presidential Support Specialist: Ramirez Ca PhD, Phone: [phone] Other Topography unknown / Unknown 12/07/2024 9:51 AM EDT 12/07/2024 9:51 AM EDT Omid Stevens CELL POURER LAB BLOOD ORDERABLES Final R esult Performing Organization Address [facility] Co de Phone Number [place] [phone], * Protein electrophoresis, serum (12/07/2024 9:51 AM EDT) TOTAL PROTEIN, SERUM 6.4 6.0 - 8.5 g/dL 12/10/2024 2:36 PM EDT [facility] ALBUMIN, SERUM 3.3 2.9 - 4.4 g/dL 12/10/2024 2:36 PM EDT [facility] [id number] 0.2 0.0 - 0.4 g/dL 12/10/2024 2:36 PM EDT [facility] [id number] 0.9 0.4 - 1.0 g/dL 12/10/2024 2:36 PM EDT [facility] BETA GLOBULIN 1.1 0.7 - 1.3 g/dL 12/10/2024 2:36 PM EDT [facility] GAMMA GLOBULIN 0.9 0.4 - 1.8 g/dL 12/10/2024 2:36 PM EDT [facility] M-SPIKE Not Observed Not Observed g/dL 12/10/2024 2:36 PM EDT [facility] GLOBULIN, TOTAL 3.1 2.2 - 3.9 g/dL 12/10/2024 2:36 PM EDT [facility] A/G RATIO 1.1 0.7 - 1.7 12/10/2024 2:36 PM EDT [facility] SPE-NOTE Comment . 12/10/2024 2:36 PM EDT [facility] Comment: Protein electrophoresis scan will follow via computer, mail, or health insurance assessor delivery. Other Topography unknown / Unknown 12/07/2024 9:51 AM EDT 12/07/2024 9:51 AM EDT us Omid Stevens CELL POURER LAB BLOOD ORDERABLES Final R esult [facility] [address] [place] [address], * Magnesium (12/07/2024 9:51 AM EDT) Pathologist [facility] MAGNESIUM 1.9 1.9 - 2.7 mg/dL 12/07/2024 11:21 AM EDT [facility] Other Topography unknown / Unknown 12/07/2024 9:51 AM EDT 12/07/2024 9:51 AM EDT us Omid Stevens CELL POURER LAB BLOOD ORDERABLES Final R esult [facility] [address] [place] [address], [facility] [address] [place] [address] * (ABNORMAL) Comprehensive metabolic panel (12/07/2024 9:51 AM EDT) Only the most recent of2 resultswithin the time period is included. Glucose 109(H) 70 - 100 mg/dL 12/07/2024 11:21 AM EDT [facility] Comment: Random Glucose Reference Range is dependent on time and content of last meal. Glucose of more than 200 mg/dL in a nonstressed, ambulatory subject supports the diagnosis of Diabetes Mellitus. ADA recommended reference range BUN 12 7 - 25 mg/dL 12/07/2024 11:21 AM EDT [facility] CREATININE 0.50(L) 0.60 - 1.20 mg/dL 12/07/2024 11:21 AM EDT [facility] ESTIMATED GFR >60.0 12/07/2024 11:21 AM EDT [facility] Sodium 139 136 - 145 mmol/L 12/07/2024 11:21 AM EDT [facility] Potassium, Bld 4.2 3.5 - 5.1 mmol/L 12/07/2024 11:21 AM EDT [facility] Chloride 101 98 - 107 mmol/L 12/07/2024 11:21 AM EDT [facility] Carbon Dioxide 31.0 21.0 - 31.0 mmol/L 12/07/2024 11:21 AM EDT [facility] Anion Gap 11.2 6.0 - 15.0 12/07/2024 11:21 AM EDT [facility] Calcium 9.0 8.6 - 10.3 mg/dL 12/07/2024 11:21 AM EDT [facility] TOTAL PROTEIN 6.5 6.4 - 8.9 g/dL 12/07/2024 11:21 AM EDT [facility] ALBUMIN LEVEL 3.8 3.5 - 5.7 g/dL 12/07/2024 11:21 AM EDT [facility] GLOBULIN 2.7 g/dL 12/07/2024 11:21 AM EDT [facility] ALBUMIN/GLOBULIN RATIO 1.4 12/07/2024 11:21 AM EDT [facility] BILIRUBIN,TOTAL 0.4 0.3 - 1.0 mg/dL 12/07/2024 11:21 AM EDT [facility] ASPARTATE AMINO TRANSFERASE 20 13 - 39 U/L 12/07/2024 11:21 AM EDT [facility] ALANINE AMINOTRANSFERASE 29 7 - 52 U/L 12/07/2024 11:21 AM EDT [facility] ALKALINE PHOSPHATASE 56 34 - 104 U/L 12/07/2024 11:21 AM EDT [facility] Other Topography unknown / Unknown 12/07/2024 9:51 AM EDT 12/07/2024 9:51 AM EDT Omid Stevens NP LAB BLOOD ORDERABLES Final R esult [facility] [address] [place] [phone], [facility] [address] [place] [address] * XR lumbar spine 2 or 3 views (11/29/2024 2:02 PM EDT) Anatomical Region Laterality Modality Spine, L-spine Radiographic Quiana ging 11/29/2024 2:02 PM EDT Impressions 11/29/2024 2:06 PM EDT Degenerative changes notably lower lumbar spine. Impression dictated by: Larry Perez M.D. 11/29/2024 2:03 PM Dictation Location: [place] [address] Transcribed By: [facility] 11/29/24 1403 Dictated By: Larry Perez MD 11/29/24 1402 Signed By: <Electronically signed by Larry Perez MD in OV> 11/29/24 1403 Narrative 11/29/2024 2:06 PM EDT [facility] Main [place] [address] [place] [id number] XRay Report Signed Patient: Lupe Pickard MR#: [id number] : 1975 Acct:[id number] Age/Sex: 49 / F ADM Date: 11/29/24 Loc: XD Room: Type: REG CLI Attending Dr: Dalia Mar CELL POURER-C Copies to: Dalia Mar NP Ordering Provider: [...] lumbar spine 2-3V* Procedure Note Radiology, Radiologist, - 11/29/2024 [facility] [place] [address] [place] [address] XRay Report Signed Patient: Lupe Pickard MMR#: [id number] : 1975Acct:[id number] Age/Sex: 49 / FADM Date: 11/29/24 Loc: XD [facility]: Dalia Mar CELL POURER-C Copies to: Dalia Mar NP Ordering Provider: [...] Perez M.D. 11/29/2024 2:03 PM Dictation Location: [place] [address] Transcribed By: [facility] 11/29/24 1403 Dictated By: Larry Perez MD 11/29/24 1402 Signed By: <Electronically signed by Larry Perez MD in OV> 11/29/24 1403 Dalia Mar CELL POURER IMG XR PROCEDURES Final Resul t * T3, free (11/29/2024 9:06 AM EDT) Blood Venous blood specimen / Unknown Kenyetta oDve MD LAB BLOOD ORDERABLES Final Re sult Performing Organization Address [facility] de Phone Number [facility] * TSH (11/27/2024 3:08 PM EDT) Blood Venous blood specimen / Unknown Kenyetta Dove MD LAB BLOOD ORDERABLES Final Re sult Performing Organization Address [facility] Co de Phone Number [facility] * T4, free (11/27/2024 3:08 PM EDT) Blood Venous blood specimen / Unknown Kenyetta Dove MD LAB BLOOD ORDERABLES Final Re sult Performing Organization Address [facility] de Phone Number [facility] * (ABNORMAL) Basic metabolic panel (11/27/2024 1:05 PM EDT) Only the most recent of2 resultswithin the time period is included. Glucose 72 70 - 100 mg/dL 11/27/2024 2:18 PM EDT [facility] Comment: Random Glucose Reference Range is dependent on time and content of last meal. Glucose of more than 200 mg/dL in a nonstressed, ambulatory subject supports the diagnosis of Diabetes Mellitus. ADA recommended reference range BUN 9 7 - 25 mg/dL 11/27/2024 2:18 PM EDT [facility] CREATININE 0.53(L) 0.60 - 1.20 mg/dL 11/27/2024 2:18 PM EDT [facility] ESTIMATED GFR >60.0 11/27/2024 2:18 PM EDT [facility] Sodium 139 136 - 145 mmol/L 11/27/2024 2:18 PM EDT [facility] Potassium, Bld 4.2 3.5 - 5.1 mmol/L 11/27/2024 2:18 PM EDT [facility] Chloride 101 98 - 107 mmol/L 11/27/2024 2:18 PM EDT [facility] Carbon Dioxide 31.9(H) 21.0 - 31.0 mmol/L 11/27/2024 2:18 PM EDT [facility] Anion Gap 10.3 6.0 - 15.0 11/27/2024 2:18 PM EDT [facility] Calcium 8.6 8.6 - 10.3 mg/dL 11/27/2024 2:18 PM EDT [facility] Other Topography unknown / Unknown 11/27/2024 1:05 PM EDT 11/27/2024 1:05 PM EDT Diony Sharma MD LAB BLOOD ORDERABLES Final Resu lt Performing Organization Address [facility] de Phone Number [facility] [address] [place] [address], [facility] [address] [place] [address] * B-type natriuretic peptide (11/21/2024 11:44 AM EDT) Only the most recent of2 resultswithin the time period is included. B-TYPE NATRIURETIC PEPTIDE 54.0 5 - 100 pg/mL 11/21/2024 12:35 PM EDT [facility] Other Venous blood specimen / Unknown 11/21/2024 11:44 AM EDT 11/21/2024 11:44 AM EDT Dalia Mar NP LAB BLOOD ORDERABLES Final Re sult Performing Organization Address City/[facility]/ZIP Co de Phone Number [address] [address], [address] [address] * Transthoracic echo (TTE) complete (11/09/2024 8:58 AM EDT) Anatomical Region Laterality Modality Heart Ultrasound 11/09/2024 8:58 AM EDT Narrative 11/09/2024 4:45 PM EDT [facility] [place] [address] [place] [address] Echocardiogram Signed Patient: Lupe Pickard MR#: [id number] : 1975 Acct:[id number] Age/Sex: 49 / F ADM Date: 11/09/24 Loc: Room: Type: [facility] Attending Dr: Shilpa Menendez PA-C Ordering [...] 11/09/24 0858 Signed By: Selina Valverde MD, [facility] 11/09/24 1644 Procedure Note Selina Valverde MD - 11/09/2024 [facility] [place] [address] [place] [address] Echocardiogram Signed Patient: Lupe Pickard MMR#: [id number] : 1975Acct:[id number] Age/Sex: 49 / FADM Date: 11/09/24 Loc: Room:Type: [facility] Attending Dr: Shilpa Menendez PA-C Ordering Provider: Shilpa Menendez PA-C Date of Service: 11/09/24/ ECH/ECH echo transthoracic: EDEMA, SOB Copies to: Selina Valverde MD, [facility] Shilpa Menendez PA-C BSA: 2.4 [...] GIO Performed At: 11/09/24 0858 Signed By: Selina Valverde MD, [facility] 11/09/24 1644 Shilpa Menendez PA CV ECHO PROCEDURES Final Res ult * [...] Anatomical Region Laterality Modality Radiographic Quiana ging Unknown Practice A IMG XR PROCEDURES Final Resul t * THINPREP TIS PAP REFLEX HPV MRNA E6/E7 (65533) (11/07/2018) CLINICAL INFORMATION: None given [facility] [...] SEE COMMENT [facility] Comment: BGG, SCT(ASCP) CT screening location: [facility], [address] [place] [address], [place] [address]. COMMENT SEE COMMENT [facility] Comment: EXPLANATORY NOTE: The Pap [...] Kenji Coreas MD [facility] Final Result [facility] from Last 3 Months or Most Recently Relevant to Health Maintenance Insurance MEDICARE MEDICAID [place] Care Teams Aircraft Pilot Relationship Specialty Start Date End Date Diony Sharma MD [address] [place] [address] PCP - General Internal Medicine 01/24/24 Kenyetta Dove MD [address] [place] [address] Referring Physician Endocrinology 08/01/24 Simón Ozuna MD [address] [place] [address] Referring Physician Urology 08/01/24 Amanda Montiel MD [address] [place] [address] Obstetrics and Gynecology 08/01/24 Krish Hodge MD [address] [place] [address] Referring Physician Ophthalmology 08/01/24 Beny Hoskins MD [address] [place] [address] [address] [place] [address] Referring Physician Gastroenterology 08/01/24 [facility] Mental Health 08/01/24
--- OUTSIDE RECORDS SUMMARY | 2024-12-31 14:31 | XMS_ITS | Encounter Summary ---
Author Organization [facility] Address [address] [place] [address] Care Team Providers Care Ply Cutter Name Role Phone Simón Davidson MD Primary Care Provider [phone] Diony Sharma MD Primary Care Provider [phone] Kenyetta Dove MD Unavailable [phone] Simón Ozuna MD Unavailable [phone] Amanda Montiel MD Unavailable [phone] Krish Hodge MD Unavailable Beny Hoskins MD Unavailable [phone] Encounter Details Date Type Department Care Team (Late st Contact Info) Description 12/29/2022 External Result Encounter [facility] External Department Unsolicited Amanda Montiel MD [address] [place] [address] Social History Tobacco Use Types Packs/Day Years [...] [address] [place] [address] 02/12/2025 11:10 AM EDT Office Visit [facility] [address] [place] [address] Kenyetta Dove MD [address] [place] [address] documented as of this encounter Procedures Procedure [...] Neff Jr., D.O.12/29/2022 2:57 PM Dictation Location: [facility] Transcribed By: [facility] 12/29/221456 Dictated By: Bob Neff Jr, DO 12/29/22 1457 Signed By: <Electronically signed by Bob Neff Jr, DO in OV> 12/29/22 1457 Narrative 12/30/2022 7:28 AM EDT [address] [address] Mammography Report Signed Patient: Lupe Pickard MR#: [id number] : 1975 Acct:[id number] Age/Sex: 47 / F ADM Date: 12/29/22 Loc: [place] Room: Type: [facility] Attending Dr: Amanda Montiel MD Copies to: [...] w/CAD Procedure Note Radiology, Radiologist, - 12/30/2022 [facility] Main [place] [address] [place] [address] Mammography Report Signed Patient: Lupe Pickard MMR#: [id number] : 1975Acct:[id number] Age/Sex: 47 / FADM Date: 12/29/22 Loc: [place] Room:Type: [facility] Attending Dr: Amanda Montiel MD Copies to: [...] Neff Jr., D.OJaycee12/29/2022 2:57 PM Dictation Location: [facility] Transcribed By: [facility] 12/29/22 1457 Dictated By: Bob Neff Jr, DO 12/29/22 1457 Signed By: <Electronically signed by Bob Neff Jr, DO inOV> 12/29/22 1457 us Amanda Mnotiel MD IMG BI PROCEDURES Final Result documented in this encounter Visit Diagnoses Not on filedocumented in this encounter Care Teams Ply Cutter Relationship Specialty Start Date End Date Simón Davidson MD [address] [place] [address] PCP - General Powerhouse Mechanic 01/16/24 01/23/24 Diony Sharma MD [address] [place] [id number] PCP - General Internal Medicine 01/24/24 Kenyetta Dove MD [address] [place] [address] Referring Physician Endocrinology 08/01/24 Simón Ozuna MD [address] [facility] [address] Referring Physician Urology 08/01/24 Amanda Montiel MD [address] [place] [address] Obstetrics and Gynecology 08/01/24 Krish Hodge MD [address] [place] [address] Referring Physician Ophthalmology 08/01/24 Beny Hoskins MD [address] [place] [address] Referring Physician Gastroenterology 08/01/24 [facility] Health 08/01/24 documented as of this encounter
--- OUTSIDE RECORDS SUMMARY | 2024-12-31 14:31 | XMS_ITS | Patient Health Record ---
Author Organization [facility] Address [address] [place] [address] Care Team Providers Care Degreasing Solution Reclaimer Name Role Phone Mcintosh Radha Primary Care Provider Gissell Kaufman Unavailable [phone] Dr. Bob Ureña Unavailable [phone] Mary Fu Unavailable [phone] Allergies No Known Allergies Reason For Referral [...] Status Risk Notes Problem Generalized anxiety disorder (89460910) Generalized Anxiety Disorder (SANDRA) (F41.1) Active confirmed Problem Body mass index 40+ - morbidly obese (192058518) BMI 40.0-44.9, adult (Z68.41) Active confirmed Problem Depressive disorder (98191977) Unspecified Depressive Disorder (F32.9) Active confirmed Problem Posttraumatic stress disorder (15853536) Post traumatic stress disorder (F43.10) Active confirmed Vital Signs Heart Rate 88 /min 10/24/2024 Oximetry 98 % 10/24/2024 Blood pressure diastolic 80 mm Hg 10/24/2024 Height 67.5 in 10/24/2024 Blood pressure systolic 130 mm Hg 10/24/2024 Weight 307.0 lbs 10/24/2024 BMI 47.37 kg/m2 10/24/2024 Encounters Encounter Location Date Provider Diagnosis [facility] [address] [place] [address] 01/02/2024 Radha Mcintosh Generalized Anxiety Disorder (SANDRA) F41.1 [facility] [address] [place] [address] 01/03/2024 Radha Mcintosh [place] [address] [place] [address] 01/03/2024 Radha Mcintosh Generalized Anxiety Disorder (SANDRA) F41.1 [facility] [address] [place] [address] 05/24/2024 Radha Mcintosh Generalized Anxiety Disorder (SANDRA) F41.1 [place] [address] [place] [address] 06/25/2024 Radha Mcintosh Generalized Anxiety Disorder (SANDRA) F41.1 [place] [address] [place] [address] 05/01/2024 Mary Fu Other dental procedure status Z98.818 ; Acute gingivitis, plaque induced K05.00 ; Encounter for dental examination and cleaning with abnormal findings Z01.21 ; Dental caries on pit and fissure surface penetrating into dentin K02.52 and Necrosis of pulp K04.1 [facility] [address] [place] [address] 11/01/2024 Gissell Kaufman Acute gingivitis, plaque induced K05.00 [facility] [address] [place] [address] 10/24/2024 Radha Mcintosh Generalized Anxiety Disorder (SANDRA) F41.1 and Post traumatic stress disorder F43.10 [facility] [address] [place] [address] 04/18/2024 Radha Mcintosh Generalized Anxiety Disorder (SANDRA) F41.1 ; Unspecified Depressive Disorder F32.9 and Post traumatic stress disorder F43.10 [facility] [address] [place] [address] 07/18/2024 Radha Mcintosh Generalized Anxiety Disorder (SANDRA) F41.1 ; Unspecified Depressive Disorder F32.9 and Post traumatic stress disorder F43.10 [facility] [address] [place] [address] 01/31/2024 Radha Mcintosh Generalized Anxiety Disorder (SANDRA) [...] Mcintosh, 0 01/16/2025 01:45:00 PM, [address] [facility], [place], [address], Provider Name:Bob Ureña, 0 02/21/2025 10:35:00 AM, [address] [place], [address], Provider Name:Gissell Kaufman , 07/04/2025 02:20:00 PM, [address], [place], [address], Insurance Providers Payer Name Payer Address Payer Phone Subscriber Number Group Number Insured Name Patient Relationship to Insured Coverage Start Date Coverage End Date MEDICARE CGS 1 [facility] [place] [address] [id number] EMILY TORIBIO Self - patient is the insured 0 MEDICAID SEC TO [facility] [address] [address] [place] [address] [phone] [id number] EMILY TORIBIO Self - patient is the insured 0 [facility] MEDICAID [place] [address] [place] [address] [id number] EMILY TORIBIO Self - patient is the insured 0 MEDICAID SEC TO [facility] [address] [place] [address] [phone] [id number] EMILY TORIBIO Self - patient is the [...]
--- OUTSIDE RECORDS SUMMARY | 2024-12-31 14:32 | XMS_ITS | Encounter Summary ---
Author Organization [facility] Address [address] [place] [address] Phone Care Team Providers Care Rounder Hand Name Role Phone Simón Davidson DO Primary Care Provider + Encounter Details Date Type Department Care Team (Late st Contact Info) Description 06/21/2022 Orders Only [facility] [address] [place] [address] Conversion, Onbase Social History Tobacco Use Types [...] on filedocumented in this encounter Care Teams Rounder Hand Relationship Specialty Start Date End Date Simón Davidson DO [address] [facility] [place] [address] PCP - General 10/21/17 documented as of this encounter
--- OUTSIDE RECORDS SUMMARY | 2024-12-31 14:32 | XMS_ITS | Encounter Summary ---
Author Organization [facility] Address [address] [place] [address] Care Team Providers Care Flight Physician Name Role Phone Simón Davidson DO Unavailable [phone] Source Comments In the event this information is protected by the Federal Confidentiality of Alcohol and Drug AbusePatient Records regulations: The Federal rules restrict any use of the information to criminally investigate or prosecute any alcohol or drug abuse patient.[facility] Encounter Details Date Type Department Care Team (Late st Contact Info) Description 07/07/2023 Get Medical Advice Rheumatology [address] [facility] [address] Stephie Brambila MD [address] [place] [address] Waiting for response Social History [...] https://www.neighborhoodatlas.medicine.[facility].edu/. Last address used for calculation [place] [...] on filedocumented in this encounter Care Teams Flight Physician Relationship Specialty Start Date End Date Simón Davidson DO Referring Family Medicine 11/22/22 documented as of this encounter
--- OUTSIDE RECORDS SUMMARY | 2024-12-31 14:32 | XMS_ITS | Encounter Summary ---
Author Organization [facility] Address [facility] [place] [address] Care Team Providers Care Sustainable Communities Designer Name Role Phone Simón Davidson DO Unavailable [phone] Source Comments In the event this information is protected by the Federal Confidentiality of Alcohol and Drug AbusePatient Records regulations: The Federal rules restrict any use of the information to criminally investigate or prosecute any alcohol or drug abuse patient.[facility] Encounter Details Date Type Department Care Team (Late st Contact Info) Description 06/28/2023 Get Medical Advice Rheumatology [address] [facility] [place] [address] Stephie Brambila MD [address] [place] [address] Follow up for testing Social [...] is lower risk 4 05/17/2023 Data from: https://www.neighborhoodatlas.medicine.[facility].edu/. Last address used for calculation [place] [...] Assessment Author Yes 01/18/2014 2:33 PM EDT Roual Gold * Do you have difficulty dressing [...] on filedocumented in this encounter Care Teams Sustainable Communities Designer Relationship Specialty Start Date End Date Simón Davidson DO Referring Family Medicine 11/22/22 documented as of this encounter
--- OUTSIDE RECORDS SUMMARY | 2024-12-31 14:32 | XMS_ITS | Encounter Summary ---
Author Organization [facility] Address [address] [place] [address] Phone Care Team Providers Care Associate Partner Name Role Phone Simón Davidson DO Primary Care Provider + Encounter Details Date Type Department Care Team (Late st Contact Info) Description 03/17/2023 Scanned Document [facility] [address] [place] [id number] Scanning, Generic Provider Social History Tobacco Use [...] on filedocumented in this encounter Care Teams Associate Partner Relationship Specialty Start Date End Date Simón Davidson DO [address] [facility] [place] [address] PCP - General 10/21/17 documented as of this encounter
--- OUTSIDE RECORDS SUMMARY | 2024-12-31 14:32 | XMS_ITS | Encounter Summary ---
Author Organization [facility] Address [address] [place] [address] Care Team Providers Care Cut Off Saw Operator Name Role Phone Diony Sharma MD Primary Care Provider [phone] Kenyetta Dove MD Unavailable [phone] Simón Ozuna MD Unavailable [phone] Amanda Montiel MD Unavailable [phone] Krish Hodge MD Unavailable [phone] Beny Hoskins MD Unavailable [phone] Encounter Details Date Type Department Care Team (Late st Contact Info) Description 12/07/2024 External Result Encounter [facility] External Department Unsolicited Omid Stevens, NEWSPAPER WRITER [address] [place] [address] Social History Tobacco Use Types Packs/Day Years [...] 02/06/2025 1:00 PM EDT Office Visit [facility] [place] [facility] [address] [place] [address] 02/12/2025 11:10 AM EDT Office Visit [facility] [place] [facility] [address] [place] [address] Kenyetta Dove MD [address] [place] [address] documented as of this encounter Procedures Procedure [...] Thacker M.D. 12/07/2024 11:37 AM Dictation Location: [place] [address] Transcribed By: [facility] 12/07/24 1137 Dictated By: Rizwana Thacker MD 12/07/24 1137 Signed By: <Electronically signed by MD Rizwana Thacker in OV> 12/07/24 1137 Narrative 12/07/2024 11:40 AM EDT [facility] Main [address] [address] XRay Report Signed Patient: Lupe Pickard MR#: [id number] : 1975 Acct:[id number] Age/Sex: 49 / F ADM Date: 12/07/24 Loc: XD Room: Type: [facility] Attending Dr: Omid Stevens RN, MSN, ANP-C [...] 2V* Procedure Note Radiology, Radiologist, - 12/07/2024 [facility] Main [place] [address] [place] [address] XRay Report Signed Patient: Lupe Pickard MMR#: [id number] : 1975Acct:[id number] Age/Sex: 49 / FADM Date: 12/07/24 Loc: XD Room:Type: [facility] Attending Dr: Omid Stevens RN, MSN, ANP-C [...] Thacker M.D. 12/07/2024 11:37 AM Dictation Location: [place] [address] Transcribed By: [facility] 12/07/24 1137 Dictated By: Rizwana Thacker MD 12/07/24 1137 Signed By: <Electronically signed by MD Rizwana Thacker in OV> 12/07/24 1137 us Omid Stevens NEWSPAPER WRITER IMG XR PROCEDURES Final Resu lt documented in this encounter Visit Diagnoses Not on filedocumented in this encounter Care Teams Cut Off Saw Operator Relationship Specialty Start Date End Date Diony Sharma MD [address] [place] [address] PCP - General Internal Medicine 01/24/24 Kenyetta Dove MD [address] [place] [address] Referring Physician Endocrinology 08/01/24 Simón Ozuna MD [address] [place] [address] Referring Physician Urology 08/01/24 Amanda Montiel MD [address] [place] [address] Obstetrics and Gynecology 08/01/24 Krish Hodge MD [address] [place] [address] Referring Physician Ophthalmology 08/01/24 Beny Hoskins MD [address] [place] [address] [address] [place] [address] Referring Physician Gastroenterology 08/01/24 [facility] Mental Health 08/01/24 documented as of this encounter
--- OUTSIDE RECORDS SUMMARY | 2024-12-31 14:32 | XMS_ITS | Encounter Summary ---
Author Organization [facility] Address [address] [place] [address] Phone Care Team Providers Care Electrical Logger Name Role Phone Simón Davidson DO Primary Care Provider + Encounter Details Date Type Department Care Team (Late st Contact Info) Description 01/03/[address] [facility] [address] [place] [address] Conversion, Onbase Social History Tobacco Use Types [...] filedocumented in this encounter Care Teams Electrical Logger Relationship Specialty Start Date End Date Simón Davidson DO [address] [facility] [place] [address] PCP - General 10/21/17 documented as of this encounter
--- OUTSIDE RECORDS SUMMARY | 2024-12-31 14:32 | XMS_ITS | Encounter Summary ---
Author Organization [facility] Address [address] [place] [address] Phone Care Team Providers Care Electronics Hardware Design Engineer Name Role Phone Simón Davidson DO Primary Care Provider + Encounter Details Date Type Department Care Team (Late st Contact Info) Description 09/20/2022 Orders Only [facility] [address] [place] [address] Conversion, Onbase Social History Tobacco Use Types [...] on filedocumented in this encounter Care Teams Electronics Hardware Design Engineer Relationship Specialty Start Date End Date Simón Davidson DO [address] [facility] [place] [address] PCP - General 10/21/17 documented as of this encounter
--- OUTSIDE RECORDS SUMMARY | 2024-12-31 14:32 | XMS_ITS | Encounter Summary ---
Author Organization [facility] Address [address] [place] [address] Care Team Providers Care Mold Tooling Technician Name Role Phone Diony Sharma MD Primary Care Provider [phone] Kenyetta Dove MD Unavailable [phone] Simón Ozuna MD Unavailable [phone] Amanda Montiel MD Unavailable [phone] Krish Hodge MD Unavailable [phone] Beny Hoskins MD Unavailable [phone] Reason for Visit * Reason Onset Date Comments lab results 12/10/2024 Encounter Details Date Type Department Care Team (Late st Contact Info) Description 12/10/2024 Results Follow-Up [facility] Internal Medicine [address] [facility] [address] [place] [address] Omid Stevens, DIPLOMATIC OFFICER [address] [facility] [address] [place] [address] Social History Tobacco Use Types Packs/Day Years [...] ----- Message ----- From: Interface, Incoming Lab [facility] Background Sent: 12/10/2024 2:37 PM EDT To: [...] Medicine [address] [place] [address] 02/12/2025 11:10 AM EDT Office Visit [facility] [place] [facility] [address] [place] [address] Kenyetta Dove MD [address] [place] [address] documented as of this encounter Visit Diagnoses Not on filedocumented in this encounter Care Teams Mold Tooling Technician Relationship Specialty Start Date End Date Diony Sharma MD [address] [place] [id number] PCP - General Internal Medicine 01/24/24 Kenyetta Dove MD [address] [place] [address] Referring Physician Endocrinology 08/01/24 Simón Ozuna MD [address] [place] [address] Referring Physician Urology 08/01/24 Amanda Montiel MD [address] [place] [address] Obstetrics and Gynecology 08/01/24 Krish Hodge MD [address] [place] [address] Referring Physician Ophthalmology 08/01/24 Beny Hoskins MD [address] [place] [address] [address] [place] [phone] Referring Physician Gastroenterology 08/01/24 [facility] Mental Health 08/01/24 documented as of this encounter
--- OUTSIDE RECORDS SUMMARY | 2024-12-31 14:32 | XMS_ITS | Encounter Summary ---
Author Organization [facility] Address [address] [place] [address] Care Team Providers Care Certified Flex Endoscope Reprocessor Name Role Phone Diony Sharma MD Primary Care Provider [phone] Kenyetta Dove MD Unavailable [phone] Simón Ozuna MD Unavailable [phone] Amanda Montiel MD Unavailable [phone] Krish Hodge MD Unavailable [phone] Beny Hoskins MD Unavailable [phone] Encounter Details Date Type Department Care Team (Late st Contact Info) Description 10/16/2024 Telephone [facility] [place] [address] [facility] [address] [place] [address] Amanda Montiel MD [address] [facility] [address] [place] [address] Social History Tobacco Use Types [...] [address] [place] [address] 02/12/2025 11:10 AM EDT Office Visit [facility] [place] [facility] [address] [place] [address] Kenyetta Dove MD [address] [place] [address] documented as of this encounter Visit Diagnoses Diagnosis Acute vaginitis- Primary Unspecified vaginitis and vulvovaginitis documented in this encounter Care Teams Certified Flex Endoscope Reprocessor Relationship Specialty Start Date End Date Diony Sharma MD [address] [place] [address] PCP - General Internal Medicine 01/24/24 Kenyetta Dove MD [address] [place] [address] Referring Physician Endocrinology 08/01/24 Simón Ozuna MD [address] [place] [address] Referring Physician Urology 08/01/24 Amanda Montiel MD [address] [place] [address] Obstetrics and Gynecology 08/01/24 Krish Hodge MD [address] [place] [address] Referring Physician Ophthalmology 08/01/24 Beny Hoskins MD [address] [place] [address] Referring Physician Gastroenterology 08/01/24 [facility] Mental Health 08/01/24 documented as of this encounter
--- OUTSIDE RECORDS SUMMARY | 2024-12-31 14:32 | XMS_ITS | Encounter Summary ---
Author Organization [facility] Address [address] [place] [address] Care Team Providers Care Window Shade Installer Name Role Phone Diony Sharma MD Primary Care Provider [phone] Kenyetta Dove MD Unavailable [phone] Simón Ozuna MD Unavailable [phone] Amanda Montiel MD Unavailable [phone] Krish Hodge MD Unavailable [phone] Beny Hoskins MD Unavailable [phone] Encounter Details Date Type Department Care Team (Late st Contact Info) Description 10/16/2024 Orders Only [facility] [place] [facility] [address] [place] [phone] Kenyetta Dove MD [address] [place] [address] Abnormal cortisol level (Primary Dx) [...] [address] [place] [address] 02/12/2025 11:10 AM EDT Office Visit [facility] [address] [place] [address] Kenyetta Dove MD [address] [place] [address] documented as of this encounter Procedures Procedure [...] Primary documented in this encounter Care Teams Window Shade Installer Relationship Specialty Start Date End Date Diony Sharma MD [address] [place] [address] PCP - General Internal Medicine 01/24/24 Kenyetta Dove MD [address] [place] [address] Referring Physician Endocrinology 08/01/24 Simón Ozuna MD [address] [place] [address] Referring Physician Urology 08/01/24 Amanda Montiel MD [address] [facility] [address] [place] [address] Obstetrics and Gynecology 08/01/24 Krish Hodge MD [address] [place] [address] Referring Physician Ophthalmology 08/01/24 Beny Hoskins MD [address] [place] [address] [address] [place] [address] Referring Physician Gastroenterology 08/01/24 [facility] Mental Health 08/01/24 documented as of this encounter
--- OUTSIDE RECORDS SUMMARY | 2024-12-31 14:32 | XMS_ITS | Clinical Summary ---
Author Organization [facility] Address [address] [place] [address] Phone Care Team Providers Care Wallpaper Printer Name Role Phone StuartSimón Nils Primary Care [...] PART A AND B MEDICAID Care Teams Wallpaper Printer Relationship Specialty Start Date End Date Simón Davidson DO [address] [id number] PCP - General 10/21/17
--- OUTSIDE RECORDS SUMMARY | 2024-12-31 14:32 | XMS_ITS | Clinical Summary ---
Author Organization [facility] Address [address] [place] [address] Care Team Providers Care Authorization Coordinator Name Role Phone Simón Davidson DO Unavailable [phone] Allergies No known active allergies Medications Glucosamine-Cho [...] is lower risk 4 05/17/2023 Data from: https://www.neighborhoodatlas.medicine.[facility].edu/. Last address used for calculation [address] 05/17/2023 Comments No Sex and Gender [...] METABOLIC PANEL (05/19/2023 8:07 AM EST) Pathologist [facility] Protein, Total 6.7 6.3 - 8.0 g/dL 05/19/2023 8:43 AM EST [facility] Albumin 4.1 3.9 - 4.9 g/dL 05/19/2023 8:43 AM EST [facility] Calcium, Total 9.2 8.5 - 10.2 mg/dL 05/19/2023 8:43 AM EST [facility] Bilirubin, Total 0.2 0.2 - 1.3 mg/dL 05/19/2023 8:43 AM EST [facility] Alkaline Phosphatase 62 34 - 123 U/L 05/19/2023 8:43 AM EST [facility] AST 10(L) 13 - 35 U/L 05/19/2023 8:43 AM EST [facility] ALT 19 7 - 38 U/L 05/19/2023 8:43 AM EST [facility] Glucose 105(H) 74 - 99 mg/dL 05/19/2023 8:43 AM EST [facility] Comment: The [place] Diabetes Association (ADA) provides guidance for cutoff [...] Standards of Medical Care in Diabetes 2016, [place] Diabetes Association. Diabetes Care. 2016.39(Suppl 1). BUN 17 7 - 21 mg/dL 05/19/2023 8:43 AM EST [facility] Creatinine 0.65 0.58 - 0.96 mg/dL 05/19/2023 8:43 AM [facility] Sodium 142 136 - 144 mmol/L 05/19/2023 8:43 AM [facility] Potassium 4.3 3.7 - 5.1 mmol/L 05/19/2023 8:43 AM [facility] Chloride 106(H) 97 - 105 mmol/L 05/19/2023 8:43 AM [facility] CO2 27 22 - 30 mmol/L 05/19/2023 8:43 AM [facility] Anion Gap 9 9 - 18 mmol/L 05/19/2023 8:43 AM [facility] Estimated Glomerular Filtration Rate 110 >=60 mL/min/1. 73m 05/19/2023 8:43 AM [facility] Comment:Estimated Glomerular Filtration Rate [...] Result [facility] [address] [place] [address] from Last 3 Months or Most Recently Relevant to Health Maintenance Insurance MEDICARE MEDICAID [place] Care Teams Authorization Coordinator Relationship Specialty Start Date End Date Simón Davidson DO Referring Family Medicine 11/22/22
--- OUTSIDE RECORDS SUMMARY | 2024-12-31 14:32 | XMS_ITS | Encounter Summary ---
Author Organization [facility] Address [address] [place] [address] Phone Care Team Providers Care Trim And Burr Operator Name Role Phone Simón Davidson DO Primary Care Provider + Encounter Details Date Type Department Care Team (Late st Contact Info) Description 12/20/2022 Orders Only [facility] [address] [place] [address] Conversion, Onbase Social History Tobacco Use Types [...] on filedocumented in this encounter Care Teams Trim And Burr Operator Relationship Specialty Start Date End Date Simón Davidson DO [address] [facility] [place] [address] PCP - General 10/21/17 documented as of this encounter
--- OUTSIDE RECORDS SUMMARY | 2024-12-31 14:32 | XMS_ITS | Encounter Summary ---
Author Organization [facility] Address [address] [place] [address] Care Team Providers Care Comber Operator Name Role Phone Diony Sharma MD Primary Care Provider [phone] Kenyetta Dove MD Unavailable [phone] Simón Ozuna MD Unavailable [phone] Amanda Montiel MD Unavailable [phone] Krish Hodge MD Unavailable [phone] Beny Hoskins MD Unavailable [phone] Encounter Details Date Type Department Care Team (Late st Contact Info) Description 11/09/2024 External Result Encounter [facility] External Department Unsolicited Shilpa Menendez, MARITZA [address] [place] [address] Social History Tobacco Use Types Packs/Day Years [...] [address] [place] [id number] 02/12/2025 11:10 AM EDT Office Visit [facility] [address] [place] [address] Kenyetta Dove MD [address] [place] [address] documented as of this encounter Procedures Procedure Name Priority Date/Time Associated Diagnosis Comments TRANSTHORACIC ECHO (TTE) COMPLETE 11/09/2024 8:58 AM EDT documented in this encounter Results * Transthoracic echo (TTE) complete (11/09/2024 8:58 AM EDT) Anatomical Region Laterality Modality Heart Ultrasound 11/09/2024 8:58 AM EDT Narrative 11/09/2024 4:45 PM EDT [facility] Main [address] [address] Echocardiogram Signed Patient: Lupe Pickard MR#: [id number] : 1975 Acct:[id number] Age/Sex: 49 / F ADM Date: 11/09/24 Loc: Room: Type: [facility] Attending Dr: Shilpa Menendez PA-C Ordering [...] 11/09/24 0858 Signed By: Selina Valverde MD, [facility] 11/09/24 1644 Procedure Note Selina Valverde MD - 11/09/2024 [facility] [place] [address] Echocardiogram Signed Patient: Lupe Pickard MMR#: [id number] : 1975Acct:[id number] Age/Sex: 49 / FADM Date: 11/09/24 Loc: Room:Type: [facility] Attending Dr: Shilpa Menendez PA-C Ordering Provider: Shilpa Menendez PA-C Date of Service: 11/09/24/ ECH/ECH echo transthoracic: EDEMA, SOB Copies to: Sel[facility]de [facility], [facility] Shilpa Menendez PA-C BSA: 2.4 m2 BP: [...] 11/09/24 0858 Signed By: Selina Valverde MD, [facility] 11/09/24 1644 Shilpa SALSA CV ECHO PROCEDURES Final Res ult documented in this encounter Visit Diagnoses Not on filedocumented in this encounter Care Teams Comber Operator Relationship Specialty Start Date End Date Diony Sharma MD [address] [place] [address] PCP - General Internal Medicine 01/24/24 Kenyetta Dove MD [address] [place] [address] Referring Physician Endocrinology 08/01/24 Simón Ozuna MD [address] [place] [address] Referring Physician Urology 08/01/24 Amanda Montiel MD [address] [place] [address] Obstetrics and Gynecology 08/01/24 Krish Hodge MD [address] [place] [address] Referring Physician Ophthalmology 08/01/24 Beny Hoskins MD [address] [place] [address] Referring Physician Gastroenterology 08/01/24 [facility] Mental Health 08/01/24 documented as of this encounter
--- OUTSIDE RECORDS SUMMARY | 2024-12-31 14:32 | XMS_ITS | Encounter Summary ---
Author Organization [facility] Address [address] [place] [address] Care Team Providers Care Product Coordinator Name Role Phone Diony Sharma MD Primary Care Provider [phone] Kenyetta Dove MD Unavailable [phone] Simón Ozuna MD Unavailable [phone] Amanda Montiel MD Unavailable [phone] Krish Hodge MD Unavailable [phone] Beny Hoskins MD Unavailable [phone] Encounter Details Date Type Department Care Team (Late st Contact Info) Description 12/10/2024 Results Follow-Up [facility] Internal Medicine [address] [place] [address] Omid Stevens, JEWEL CUPPING MACHINE OPERATOR [address] [facility] [address] [place] [address] Social History Tobacco Use Types [...] [address] [place] [id number] 02/12/2025 11:10 AM EDT Office Visit [facility] [address] [place] [address] Kenyetta Dove MD [address] [place] [address] documented as of this encounter Visit Diagnoses Not on filedocumented in this encounter Care Teams Product Coordinator Relationship Specialty Start Date End Date Diony Sharma MD [address] [place] [address] PCP - General Internal Medicine 01/24/24 Kenyetta Dove MD [address] [place] [address] Referring Physician Endocrinology 08/01/24 Simón Ozuna MD [address] [place] [address] Referring Physician Urology 08/01/24 Amanda Montiel MD [address] [place] [address] Obstetrics and Gynecology 08/01/24 Krish Hodge MD [address] [place] [address] Referring Physician Ophthalmology 08/01/24 Beny Hoskins MD [address] [place] [address] [address] [place] [address] Referring Physician Gastroenterology 08/01/24 [facility] Mental Health 08/01/24 documented as of this encounter
--- OUTSIDE RECORDS SUMMARY | 2024-12-31 14:32 | XMS_ITS | Encounter Summary ---
Author Organization [facility] Address [address] [place] [address] Phone Care Team Providers Care Bull Chain Operator Name Role Phone Simón Davidson DO Primary Care Provider + Encounter Details Date Type Department Care Team (Late st Contact Info) Description 11/05/2022 Orders Only [facility] [address] [place] [address] Conversion, Onbase Social History Tobacco Use Types [...] on filedocumented in this encounter Care Teams Bull Chain Operator Relationship Specialty Start Date End Date Simón Davidson DO [address] [facility] [place] [address] PCP - General 10/21/17 documented as of this encounter
--- NOTE | 2024-12-31 15:22 | PM.CN ---
Consult Note: HPI Data of Consult Patient: known to practice within the last 3 years Consult date: 12/31/24 Requesting Physician: Willian Jensen MD Primary Care Provider: Non-Staff Physician, Consult Narrative Reason for consult: low back, right shoulder pain Narrative: 49yof who presents for assessment. notes improvement in back pain after recent spinal cord stimulator implant. now primarily notes right shoulder and left knee pain. continues to use medications as needed. cc:: CC: Willian Jensen MD Review of Systems ROS Status of ROS 10 or more systems reviewed and unremarkable except as noted in history and below [facility] Medical History Lumbago ?M54.50 - Low back pain, unspecified (ICD-10) Thoracic spondylosis ?M47.814 - Spondylosis without myelopathy or radiculopathy, thoracic region (ICD-10) Muscle spasm ?M62.838 - Other muscle spasm (ICD-10) Thoracic neuritis ?M54.14 - Radiculopathy, thoracic region (ICD-10) Chronic pain syndrome ?G89.4 - Chronic pain syndrome (ICD-10) Lumbar spondylosis ?M47.816 - Spondylosis without myelopathy or radiculopathy, lumbar region (ICD-10) Greater trochanteric bursitis of right hip ?M70.61 - Trochanteric bursitis, right hip (ICD-10) Thoracic stenosis ?M48.04 - Spinal stenosis, thoracic region (ICD-10) Chronic bilateral low back pain ?M54.50 - Low back pain, unspecified (ICD-10) ?G89.29 - Other chronic pain (ICD-10) Sacroiliitis ?M46.1 - Sacroiliitis, not elsewhere classified (ICD-10) Sacroiliac joint dysfunction ?M53.3 - Sacrococcygeal disorders, not elsewhere classified (ICD-10) Lumbar stenosis with neurogenic claudication ?M48.062 - Spinal stenosis, lumbar region with neurogenic claudication (ICD-10) Neck pain ?M54.2 - Cervicalgia (ICD-10) Shoulder pain ?M25.519 - Pain in unspecified shoulder (ICD-10) Arthritis ?M19.90 - Unspecified osteoarthritis, unspecified site (ICD-10) Back pain ?M54.9 - Dorsalgia, unspecified (ICD-10) Dyspnea on exertion ?R06.09 - Other forms of dyspnea (ICD-10) Hypothyroidism ?E03.9 - Hypothyroidism, unspecified (ICD-10) Thyroid disease ?E07.9 - Disorder of thyroid, unspecified (ICD-10) Pseudotumor cerebri ?G93.2 - Benign intracranial hypertension (ICD-10) PTSD (post-traumatic stress disorder) ?F43.10 - Post-traumatic stress disorder, unspecified (ICD-10) Chronic fatigue syndrome ?G93.32 - Myalgic encephalomyelitis/chronic fatigue syndrome (ICD-10) Depression ?F32.A - Depression, unspecified (ICD-10) Anxiety ?F41.9 - Anxiety disorder, unspecified (ICD-10) HTN (hypertension) ?I10 - Essential (primary) hypertension (ICD-10) Palpitations ?R00.2 - Palpitations (ICD-10) Osteoarthritis ?M19.90 - Unspecified osteoarthritis, unspecified site (ICD-10) Fibromyalgia ?M79.7 - Fibromyalgia (ICD-10) IBS (irritable bowel syndrome) ?K58.9 - Irritable bowel syndrome without diarrhea (ICD-10) Constipation ?K59.00 - Constipation, unspecified (ICD-10) Surgical History S/P insertion of spinal cord stimulator (07/23/24) ?Z96.89 - Presence of other specified functional implants (ICD-10) S/P epidural steroid injection ?Z92.241 - Personal history of systemic steroid therapy (ICD-10) History of radiofrequency ablation (RFA) of nerve of lumbar spine ?Z98.890 - Other specified postprocedural states (ICD-10) History of colonoscopy ?Z98.890 - Other specified postprocedural states (ICD-10) History of breast biopsy ?Z98.890 - Other specified postprocedural states (ICD-10) H/O section ?Z98.891 - History of uterine scar from previous surgery (ICD-10) History of hysterectomy ?Z90.710 - Acquired absence of both cervix and uterus (ICD-10) History of thyroidectomy ?E89.0 - Postprocedural hypothyroidism (ICD-10) Family History Other Family history of cancer Family history of diabetes mellitus Family history of heart disease Family history of hypertension Family history of myocardial infarction Family history of stroke Kidney disease Social History Within the past year, how often did you have a drink containing alcohol: never Score interpretation: A score less than 3 is consistent with normal alcohol consumption. Smoking status: Former smoker Do you use any of these nicotine containing products: vaping products Non-prescribed substance use: denies use Highest level of school completed/degree received: high school graduate Meds Home Medications and Allergies Home Medications ?Medication ?Instructions ?Recorded ?Confirmed ?Type cholecalciferol (vitamin D3) 50 50 mcg PO DAILY 12/30/22 12/17/24 History mcg (2,000 unit) capsule (Vitamin D3) liothyronine 5 mcg tablet 5 mcg PO DAILY 12/30/22 12/17/24 History lubiprostone 24 mcg capsule 24 mcg PO DAILY PRN IBS -C 12/30/22 12/17/24 History magnesium oxide 400 mg (241.3 mg 400 mg PO DAILY 12/30/22 12/17/24 History magnesium) tablet melatonin 10 mg tablet 10 mg PO DAILY 12/30/22 12/17/24 History multivitamin (Daily Multi-Vitamin 1 tab PO DAILY 12/30/22 12/17/24 History tablet) Lactobacillus acidophilus 10 100 mmu cells PO DAILY 08/03/23 12/17/24 History billion cell capsule (Probiotic) escitalopram oxalate 20 mg tablet 20 mg PO DAILY 08/03/23 12/17/24 History (Lexapro) ferrous sulfate 325 mg (65 mg 325 mg PO DAILY 08/03/23 12/17/24 History iron) tablet (Feosol) propranolol 20 mg tablet 20 mg PO BID 08/03/23 12/17/24 History calcium 500 mg (as 1 tab PO DAILY 07/13/24 12/17/24 History carbonate)-vitamin D3 5 mcg (200 unit) tablet (Oyster Shell Calcium-Vitamin D3) collagen capsule PO 07/13/24 History vit B complex-folic acid 400 1 cap PO DAILY 07/13/24 12/17/24 History mcg-choline 20 mg-inositol 50 mg capsule (Super B-50 Complex) cephalexin 500 mg capsule 500 mg PO Q8H celulitis 11/27/24 11/27/24 History levothyroxine 125 mcg tablet 125 mcg PO DAILY 11/27/24 12/17/24 History potassium chloride 10 mEq 10 meq PO BID 11/27/24 12/17/24 History tablet,extended release(part/cryst) cephalexin 500 mg capsule 500 mg PO TID 7 days #21 caps 12/17/24 Rx hydrocodone 5 mg-acetaminophen 325 1 tab PO QID PRN pain #12 tabs 12/17/24 Rx mg tablet losartan 100 tab 12/17/24 History mg-hydrochlorothiazide 12.5 mg tablet Allergies Allergy/AdvReac Type Severity Reaction Status Date / Time No Known Drug Allergies Allergy Verified 11/27/24 14:30 Exam Narrative Exam Narrative: Psych-alert and oriented x 3. Attentive and appropriate, constitutionally normal, displays normal mood and affect per situation.? There are no obvious deficits in memory, reasoning, or intellect.? Skin-no obvious rashes, bruising, erythema noted to the patient's area of pain. Extremities- extremities are warm with minimal edema and palpable pulses. Shoulder - pain to palpation in right shoulder. Pain with abduction, external rotation of right shoulder. Knee-examination of the left knee reveals tenderness to palpation over the superior, inferior, lateral, and medial aspect of the knee.? Some swelling is noted without erythema. Pain is elicited with flexion and extension of the knee both actively and passively.? Some grinding is noted with these motions.? There is no notable ligamental laxity or instability. Coordination remains intact.? Gait remains non-antalgic. Assessment and Plan Assessment and Plan (1) Left knee pain: Qualifiers: Chronicity: chronic Qualified Code(s): M25.562 - Pain in left knee; G89.29 - Other chronic pain (2) Right shoulder pain: Qualifiers: Chronicity: chronic Qualified Code(s): M25.511 - Pain in right shoulder; G89.29 - Other chronic pain Plan 49yof who presents for assessment. continues to do well after recent scs implant. incisions assessed, found to be clean, dry, intact. in terms of right shoulder and left knee pain, will order XRs for further assessment. she is in agreement. meds reviewed, no changes. follow up after imaging complete.
== END 2024-12-31 14:30 | disposition home or self-care (01) ==
LOC: PM 14:29
PROVIDERS: Visit Provider Anesthesiology
DX: M25.562 Pain in left knee (principal); G89.29 Other chronic pain; M25.511 Pain in right shoulder
CPT/HCPCS: G0463

== ENCOUNTER 2025-01-14 14:42 | Outpatient (OUT) | payer MEDICARE, MEDICAID, SELFPAY ==
--- OUTSIDE RECORDS SUMMARY | 2018-01-25 09:00 | XMS_ITS | Continuity of Care Document ---
Author Organization [facility] Address [address] [place] [address] Phone Care Team Providers Care Cloth Examiner Machine Name Role Phone Antoine Leonard DMD Unavailab [...] Diagnoses Date Provider Providers Copied on Encounter [facility], [address] [place] [address], [place], [place], [id number] , [place] tel:[phone] Dental Clinic prophy (chief complaint) Encounter for screening for dental disorders 8 Demetrice [facility] [address] [facility], [place], [address], [place]. tel:[phone] [facility], [address] [facility], [place], [place], [address] , [place] tel:[phone] Dental Clinic prophy (chief complaint) Encounter for screening for dental disorders 7 Preet Merchantbo. [address] [facility], [place], [address], [place]. tel:[phone] [facility], [address] [facility], [facility] [place], [id number] , [place] tel:[phone] Dental Clinic extraction (chief complaint) Encounter for screening for dental disorders 7 Declan Andriy Snell. [address] [facility], [place], [address], [place]. tel:[phone] [facility], [address] [place], [place], [address] , [place] tel:[phone] Dental Clinic dental limited (chief complaint) Encounter for screening for dental disorders 7 Preet Moreno. [address] [facility], [place], [address], [place]. tel:[phone] [facility], [address] [facility], [facility] [place], [address] , [place] tel:[phone] Dental Clinic Encounter for screening for dental disorders 6 [facility] August. [address] [facility], [address], [place]. tel:[phone] [facility], [address] [facility] [place], [address] , [place] tel:[phone] Dental Clinic prophy (chief complaint) Encounter for screening for dental disorders 6 [facility] August. [address] [facility], [place], [place], [address], [place]. tel:[phone] [facility], [address] [place], [place], [address] , [place] tel:[phone] Dental Clinic Encounter for screening for dental disorders 6 Beau DMD Nanette. [address] [place], [place], [address], [place]. tel:[phone] OFFICE/OUTPA TIENT VISIT, EST [facility], [address] [place], [place], [address] , [place] tel: [phone] [facility] repeat pap (chief complaint) Papanicolaou smear of cervix with atypical squamous cells of undetermined significance (ASC-US) 4 [facility] Evelyn. [address] [place], [place], [address], [place]. tel:[phone] PREV VISIT, EST, AGE 12-17 [facility], [address] [place], [place], [address] , [place] tel: [phone] [facility] annual visit (chief complaint) Gynecological ExaminationMam venecia, Screening 3 Jer Cleveland. [address] [place], [place], [address], [place]. tel:[phone] OFFICE/OUTPA TIENT VISIT, EST [facility], [address] [place], [place], [address] , [place] tel: [phone] [facility] No Information 2 L[address] Megha. [address] [place], [place], [address], [place]. tel:[phone] [facility], [address] [place], [place], [address] , [place] tel: [phone] [facility] No Information 2 Visci DO Gadiel. [address] [place], [place], [address], [place]. tel:[phone] [facility], [address] [place], [place], [address] , [place] tel: [phone] [facility] No Information 2 Lamp Megha. [address] [place], [place], [address], [place]. tel:[phone] [facility], [address] [place], [place], [address] , [place] tel: [phone] [facility] No Information 2- 0 Jer Cleveland. [address] [place], [place], [address], [place]. tel:[phone] 23 OFFICE/OUTPA TIENT VISIT, [facility], [address] [place], [place], [address] , [place] tel: [phone] [facility] No Information 9 Milton ROSARIOLoren Arriola. [address] [place], [place], [address]. tel:[phone] 23 OFFICE/OUTPA TIENT VISIT, [facility], [address] [place], [place], [address] , [place] tel: [phone] [facility] No Information 9 No Information OFFICE/OUTPA TIENT VISIT, [facility], [address] [place], [place], [address] , [place] tel: [phone] [facility] No Information 9 Tere Sloan. [address] [place], [place], [address], [place]. tel:[phone] 23 OFFICE/OUTPA TIENT VISIT, [facility], [address] [place], [place], [address] , [place] tel: [phone] [facility] No Information 9 Tere Sloan. [address] [place], [place], [address], [place]. tel:[phone] PREV VISIT, EST, AGE 18-39 [facility], [address] [place], [place], [address] , [place] tel: [phone] [facility] No Information 0 6200 9 Donavon Avina. [address] [place], [place], [address]. tel:[phone] 23 OFFICE/OUTPA TIENT VISIT, EST [facility], [address] [place], [place], [address] , [place] tel:[phone] [facility] No Information 8 Tere Sloan. [address] [place], [place], [address], [place]. tel:[phone] 23 Family History Family Member Type Diagnosis [...] alcoholism Payers Payer name Insurance type Covered republican ID Authoriza tion(s) No Information Social History [...]
--- OUTSIDE RECORDS SUMMARY | 2024-10-08 10:45 | XMS_ITS ---
Author Organization [facility] Address [address] [place] [address] Care Team Providers Care Copy Chaser Name Role Phone Radha Mcintosh Primary Care Provider [phone] Gissell Kaufman Unavailable [phone] REASON FOR VISIT 3 month f/u Encounters Encounter Location Date Provider Diagnosis [facility] [address] [place] [address] 10/08/2024 Radha Mcintosh Plan Of Treatment Next Appt Details Provider Name:Radha Mcintosh, 0 01/16/2025 01:45:00 PM, [address] [place], [address], Provider Name:Bob Niranjan, 0 02/21/2025 10:35:00 AM, [address], [place], [address], Provider Name:Gissell Kaufman , 07/04/2025 02:20:00 PM, [address], [place], [address], Progress Notes * VANI TORIBIO:1975 ([age] yo F)Acc No.[id number]:10/08/2024 Behavioral Health Patient: Brent EMILY RIVREA Appointment Provider: Kaiden Mcintosh :1975 A ge:49 Y S ex:Female Date:10/08/2024 Address:[address], [place], [id number] Subjective: * Chief Complaints: * 1 . 3 month f/u. * Medical History: Objective: * Vitals: Assessment: Plan: * Treatment: * Images: * Electronic signature of MARIBEL Mckinney on 01/14/2025 at 02:45 PM EDT Sign off status: Pending * Appointment Provider: Kaiden Mcintosh Date: 0 10/08/2024 Generated for Joshua saunders/Debora/Yo on: 0 01/14/2025 02:45 PM EDT
--- OUTSIDE RECORDS SUMMARY | 2025-01-11 13:30 | XMS_ITS | Encounter Summary ---
Author Organization [facility] Address [address] [place] [address] Care Team Providers Care Grants Assistant Name Role Phone Diony Sharma MD Primary Care Provider [phone] Kenyetta Dove MD Unavailable [phone] Simón Ozuna MD Unavailable [phone] Amanda Montiel MD Unavailable [phone] Krish Hodge MD Unavailable [phone] Beny Hoskins MD Unavailable [phone] Reason for Visit * Reason Comments Knee Pain Encounter Details Date Type Department Care Team (Late st Contact Info) Description 01/11/2025 1:30 PM EDT [facility] [address] [place] [phone] Dalia Mar, [employer] [address] [place] [address] Acute pain of left knee (Primary Dx) Social History Tobacco Use Types [...] Sign Reading Time Taken Comments Blood Pressure 138/82 01/11/2025 1:43 PM EDT Pulse 65 01/11/2025 1:43 PM EDT Temperature - - Respiratory Rate - - Oxygen Saturation 99% 01/11/2025 1:43 PM EDT Inhaled Oxygen Concentration - - Weight 147 kg (323 lb) 01/11/2025 1:43 PM EDT Height - - Body Mass Index 50.59 12/20/2024 3:10 PM EDT documented in this encounter Progress Notes * Dalai Mar NP - 01/11/2025 1:30 PM EDT Images from the original note were not included. Lupe Pickard is a 49 y.o. female presents with chief complaint of Knee Pain HPI: History of Present Illness The patient presents for evaluation of knee pain. Knee Pain and Associated Symptoms She reports persistent redness and a sensation of tightness in her legs, which have slightly improved. However, she is experiencing difficulty in walking and bearing weight on her legs. She describesa sensation of instability in her knee, as if something is out of place, and fears that her leg might buckle if she moves her knee incorrectly. She has been using a rollator for mobility and a showerchair for bathing due to her inability to juice standardizer the shower. An x-ray conducted at the ER on 01/02/2025 did not reveal any abnormalities. She also consulted an software specialist earlier this week who performed another x- ray, which also showed no issues. The ER prescribed steroids, which provided minimal relief initially but were ineffective thereafter. The software specialist suggested a one-time steroid injection and physical therapy, with the option of an MRI if therapy proved ineffective. She declined the steroid injection but agreed to the MRI. She has been managing her pain with Tylenol, which is effective when she is at rest. - Onset: Persistent symptoms, with ER visit on 01/02/2025. - Location: Knee and legs. - Duration: Ongoing, with slight improvement in redness and tightness. - Character: Redness, tightness, difficulty walking, bearing weight, instability, sensation of something out of place. - Alleviating/Aggravating Factors: Using rollator for mobility, shower chair for bathing, Tylenol effective at rest, steroids initially provided minimal relief. - Timing: Persistent symptoms, ER visit on 01/02/2025, orthopedic consultation earlier this week. - Severity: Difficulty walking and bearing weight, fear of leg buckling, minimal relief from steroids. I have reviewed and reconciled the history [...] Morbid obesity with BMI of 40.0-44.9, adult ([facility]) Nonscarring hair loss, unspecified Postprocedural hypothyroidism Primary [...] MEDICATIONS: Current Outpatient Medications Medication Instructions B Yndqyaj-Vodmwm-LP (Super Quints B-50) tablet Take by mouth cholecalciferol (VITAMIN D-3) 50 mcg, Oral, Daily RT COLLAGEN PO Take by mouth escitalopram (LEXAPRO) 20 mg, Daily ferrous sulfate 325 mg, Daily with breakfast levothyroxine (SYNTHROID, LEVOXYL) 125 mcg, Oral, Daily liothyronine (CYTOMEL) 5 mcg, Oral, 2 times daily losartan-hydroCHLOROthiazide (Hyzaar) 100-12.5 MG tablet 1 tablet, [...] Allergies PHYSICAL EXAM: Visit Vitals BP 138/82 Pulse 65 Wt 323 lb SpO2 99% BMI 50.59 kg/m?? Smoking Status Every Day BSA 2.64 m?? BP Readings from Last 3 Encounters: 01/11/25 138/82 12/20/24 118/80 12/13/24 124/86 Wt Readings from Last 3 Encounters: 01/11/25 323 lb 12/20/24 323 lb 9.6 oz 12/13/24 320 lb Physical Exam HENT: Mouth/Throat: Mouth: Mucous membranes are moist. Musculoskeletal: General: Tenderness (LCL) present. Skin: General: Skin is warm and dry. Neurological: Mental Status: She is alert and oriented to person, place, and time. Psychiatric: Mood and Affect: Mood normal. Thought Content: Thought content normal. Physical Exam Musculoskeletal: Tenderness noted in the lateral collateral ligament area of the knee. Pain elicited with rotation and straightening of the knee. Pain localized primarily in the anterior and posterior aspects of the knee. Results Imaging - X-ray of the knee: No abnormalities ASSESSMENT AND PLAN: Assessment & Plan 1. Acute pain of left knee (Primary) Knee pain: Chronic. - MRI of the knee ordered by Ortho to obtain a detailed image of the internal structures and identify any ligament or other soft tissue issues. Follow up with Dr Benz after MRI. - Continue to use walker and knee support brace as needed. - OARRS reviewed without concerns. She needs something more than Tylenol when pain is severe. - Hydrocodone-acetaminophen 5-325 mg prescribed for temporary pain management. - Continue using Tylenol as needed. - HYDROcodone-acetaminophen ([place]) 5-325 MG tablet; Take 1-2 tablets by mouth every 6 (six) hours if needed for severe pain for up to 7 days Dispense: 42 tablet; Refill: 0 Follow-up - MRI scheduling confirmed. documented in this encounter Plan of Treatment Upcoming Encounters Date Type Department Care Team (Late st Contact Info) Description 02/06/2025 1:00 PM EDT [facility] [address] [place] [address] 02/12/2025 11:10 AM EDT Office Visit [facility] [address] [place] [address] Kenyetta Dove MD [address] [place] [address] documented as of this encounter Visit Diagnoses Diagnosis Acute pain of left knee- Primary documented in this encounter Care Teams Grants Assistant Relationship Specialty Start Date End Date Diony Sharma MD [address] [place] [address] PCP - General Internal Medicine 01/24/24 Kenyetta Dove MD [address] [place] [address] Referring Physician Endocrinology 08/01/24 Simón Ozuna MD [address] [place] [address] Referring Physician Urology 08/01/24 Amanda Montiel MD [address] [place] [address] Obstetrics and Gynecology 08/01/24 Krish Hodge MD [address] [place] [address] Referring Physician Ophthalmology 08/01/24 Beny Hoskins MD [address] [place] [address] Referring Physician Gastroenterology 08/01/24 [facility] Mental Health 08/01/24 documented as of this encounter
--- OUTSIDE RECORDS SUMMARY | 2025-01-14 14:45 | XMS_ITS | Encounter Summary ---
Author Organization [facility] Address [address] [place] [address] Phone Care Team Providers Care Breeding Technician Name Role Phone Simón Davidson DO Primary Care Provider + Encounter Details Date Type Department Care Team (Late st Contact Info) Description 11/09/1976 Scanned Document [facility] [address] [place] [phone] Scanning, Generic Provider Social History Tobacco Use [...] on filedocumented in this encounter Care Teams Breeding Technician Relationship Specialty Start Date End Date Simón Davidson DO [address] [place] [address] PCP - General 10/21/17 documented as of this encounter
--- OUTSIDE RECORDS SUMMARY | 2025-01-14 14:45 | XMS_ITS | Encounter Summary ---
Author Organization [facility] Address [address] [place] [address] Care Team Providers Care Forgesmith Name Role Phone Diony Sharma MD Primary Care Provider [phone] Kenyetta Dove MD Unavailable [phone] Simón Ozuna MD Unavailable [phone] Amanda Montiel MD Unavailable [phone] Krish Hodge MD Unavailable [phone] Beny Hoskins MD Unavailable [phone] Encounter Details Date Type Department Care Team (Late st Contact Info) Description 10/16/2024 Telephone [facility] [place] [facility] [email or web address] [place] [address] Amanda Montiel MD [address] [facility] [address] [place] [address] Social History Tobacco Use Types [...] [address] [place] [phone] 02/12/2025 11:10 AM EDT Office Visit [facility] [address] [place] [phone] Kenyetta Dove MD [address] [place] [address] documented as of this encounter Visit Diagnoses Diagnosis Acute vaginitis- Primary Unspecified vaginitis and vulvovaginitis documented in this encounter Care Teams Forgesmith Relationship Specialty Start Date End Date Diony Sharma MD [address] [place] [address] PCP - General Internal Medicine 01/24/24 Kenyetta Dove MD [address] [place] [address] Referring Physician Endocrinology 08/01/24 Simón Ozuna MD [address] [place] [address] Referring Physician Urology 08/01/24 Amanda Montiel MD [address] [place] [address] Obstetrics and Gynecology 08/01/24 Krish Hodge MD [address] [place] [address] Referring Physician Ophthalmology 08/01/24 Beny Hoskins MD [address] [place] [address] Referring Physician Gastroenterology 08/01/24 [facility] 08/01/24 documented as of this encounter
--- OUTSIDE RECORDS SUMMARY | 2025-01-14 14:45 | XMS_ITS | Encounter Summary ---
Author Organization [facility] Address [address] [place] [address] Phone Care Team Providers Care Process Area Supervisor Name Role Phone Simón Davidson DO Primary Care Provider + Encounter Details Date Type Department Care Team (Late st Contact Info) Description 01/03/2018 Orders Only [facility] [address] [place] [address] Conversion, Onbase Social History Tobacco Use Types [...] on filedocumented in this encounter Care Teams Process Area Supervisor Relationship Specialty Start Date End Date Simón Davidson DO [address] [facility] [place] [address] PCP - General 10/21/17 documented as of this encounter
--- OUTSIDE RECORDS SUMMARY | 2025-01-14 14:45 | XMS_ITS | Encounter Summary ---
Author Organization [facility] Address [address] [place] [address] Care Team Providers Care Rigging Worker Name Role Phone Diony Sharma MD Primary Care Provider [phone] Kenyetta Dove MD Unavailable [phone] Simón Ozuna MD Unavailable [phone] Amanda Montiel MD Unavailable [phone] Krish Hodge MD Unavailable [phone] Beny Hoskins MD Unavailable [phone] Encounter Details Date Type Department Care Team (Late st Contact Info) Description 11/09/2024 External Result Encounter [facility] External Department Unsolicited Shilpa Menendez, MARITZA [address] [place] [address] Social History Tobacco Use Types Packs/Day Years [...] [address] [place] [phone] 02/12/2025 11:10 AM EDT Office Visit [facility] [address] [place] [address] Kenyetta Dove MD [address] [place] [address] documented as of this encounter Procedures Procedure Name Priority Date/Time Associated Diagnosis Comments TRANSTHORACIC ECHO (TTE) COMPLETE 11/09/2024 8:58 AM EDT documented in this encounter Results * Transthoracic echo (TTE) complete (11/09/2024 8:58 AM EDT) Anatomical Region Laterality Modality Heart Ultrasound 11/09/2024 8:58 AM EDT Narrative 11/09/2024 4:45 PM EDT [facility] Main [address] [address] Echocardiogram Signed Patient: Lupe Pickard MR#: [id number] : 1975 Acct:[id number] Age/Sex: 49 / F ADM Date: 11/09/24 Loc: Room: Type: [facility] Attending Dr: Shilpa Menendez PA-C Ordering [...] 11/09/24 0858 Signed By: Selina Valverde MD, [facility] 11/09/24 1644 Procedure Note Selina Valverde MD - 11/09/2024 [facility] [place] [address] Echocardiogram Signed Patient: Lupe Pickard MMR#: [id number] : 1975Acct:[id number] Age/Sex: 49 / FADM Date: 11/09/24 Loc: Room:Type: [facility] Attending Dr: Shilpa Menendez PA-C Ordering Provider: Shilpa Menendez PA-C Date of Service: 11/09/24/ ECH/ECH echo transthoracic: EDEMA, SOB Copies to: [facility]de [facility] Shil[facility] Men[facility] PA-C BSA: 2.4 m2 [...] 11/09/24 0858 Signed By: Selina Valverde MD, [facility] 11/09/24 1644 Shilpa SALAS CV ECHO PROCEDURES Final Res ult documented in this encounter Visit Diagnoses Not on filedocumented in this encounter Care Teams Rigging Worker Relationship Specialty Start Date End Date Diony Sharma MD [address] [place] [address] PCP - General Internal Medicine 01/24/24 Kenyetta Dove MD [address] [place] [address] Referring Physician Endocrinology 08/01/24 Simón Ozuna MD [address] [place] [address] Referring Physician Urology 08/01/24 Amanda Montiel MD [address] [place] [address] Obstetrics and Gynecology 08/01/24 Krish Hodge MD [address] [place] [address] Referring Physician Ophthalmology 08/01/24 Beny Hoskins MD [address] [place] [address] Referring Physician Gastroenterology 08/01/24 [facility] Mental Health 08/01/24 documented as of this encounter
--- OUTSIDE RECORDS SUMMARY | 2025-01-14 14:45 | XMS_ITS | Encounter Summary ---
Author Organization [facility] Address [address] [place] [address] Care Team Providers Care Boat Fueler Name Role Phone Diony Sharma MD Primary Care Provider [phone] Kenyetta Dove MD Unavailable [phone] Simón Ozuna MD Unavailable [phone] Amanda Montiel MD Unavailable [phone] Krish Hodge MD Unavailable [phone] Beny Hoskins MD Unavailable [phone] Reason for Visit * Reason Comments Med Refill Encounter Details Date Type Department Care Team (Late st Contact Info) Description 01/01/2025 Refill [facility] [address] [place] [phone] Kenyetta Dove MD [address] [place] [address] Acquired hypothyroidism Social History Tobacco Use Types Packs/Day Years [...] encounter Miscellaneous Notes * Telephone Encounter - Savannah Welch LPN - 01/01/2025 1:52 PM EDT MEDICATION SENT TO PHARMACY. documented in this encounter Plan of Treatment Upcoming Encounters Date Type Department Care Team (Late st Contact Info) Description 02/06/2025 1:00 PM EDT Office [facility] [address] [place] [phone] 02/12/2025 11:10 AM EDT Office Visit [facility] [address] [place] [address] Kenyetta Dove MD [address] [place] [address] documented as of this encounter Visit Diagnoses Diagnosis Acquired hypothyroidism Unspecified hypothyroidism documented in this encounter Care Teams Boat Fueler Relationship Specialty Start Date End Date Diony Sharma MD [address] [place] [address] PCP - General Internal Medicine 01/24/24 Kenyetta Dove MD [address] [place] [address] Referring Physician Endocrinology 08/01/24 Simón Ozuna MD [address] [place] [address] Referring Physician Urology 08/01/24 Amanda Montiel MD [address] [place] [address] Obstetrics and Gynecology 08/01/24 Krish Hodge MD [address] [place] [address] Referring Physician Ophthalmology 08/01/24 Beny Hoskins MD [address] [place] [address] [address] [place] [address] Referring Physician Gastroenterology 08/01/24 [facility] Mental Health 08/01/24 documented as of this encounter
--- OUTSIDE RECORDS SUMMARY | 2025-01-14 14:45 | XMS_ITS | Encounter Summary ---
Author Organization [facility] Address [address] [place] [address] Care Team Providers Care Casey Saw Operator Name Role Phone Simón Davidson MD Primary Care Provider [phone] Diony Sharma MD Primary Care Provider [phone] Kenyetta Dove MD Unavailable [phone] Simón Ozuna MD Unavailable [phone] Amanda Montiel MD Unavailable [phone] Krish Hodge MD Unavailable [phone] Beny Hoskins MD Unavailable [phone] Encounter Details Date Type Department Care Team ([facility] Contact Info) Description 01/23/2024 Orders Only [facility] [address] [place] [address] A, Unknown Practice [address] [place], [place] [phone] Social History Tobacco Use Types Packs/Day Years [...] Upcoming Encounters Date Type Department Care Team ([facility] Contact Info) Description 02/06/2025 1:00 PM EDT Office Visit [facility] [address] [place] [phone] 02/12/2025 11:10 AM EDT Office Visit [facility] [address] [place] [phone] Kenyetta Dove MD [address] [place] [address] documented as of this encounter Procedures Procedure [...] on filedocumented in this encounter Care Teams Casey Saw Operator Relationship Specialty Start Date End Date Simón Davidson MD [address] [place] [address] PCP - General Finisher Polisher 01/16/24 01/23/24 Diony Sharma MD [address] [place] [address] PCP - General Internal Medicine 01/24/24 Kenyetta Dove MD [address] [place] [address] Referring Physician Endocrinology 08/01/24 Simón Ozuna MD [address] [place] [address] Referring Physician Urology 08/01/24 Amanda Montiel MD [address] [facility] [address] [place] [address] Obstetrics and Gynecology 08/01/24 Krish Hodge MD [address] [place] [address] Referring Physician Ophthalmology 08/01/24 Beny Hoskins MD [address] [place] [address] [address] [place] [address] Referring Physician Gastroenterology 08/01/24 [facility] Mental Health 08/01/24 documented as of this encounter
--- OUTSIDE RECORDS SUMMARY | 2025-01-14 14:45 | XMS_ITS | Encounter Summary ---
Author Organization [facility] Address [address] [place] [address] Phone Care Team Providers Care Conduit Cleaner Name Role Phone Simón Davidson DO Primary Care Provider + Encounter Details Date Type Department Care Team (Late st Contact Info) Description 09/20/2022 Orders Only [facility] [address] [place] [address] Conversion, Onbase Social History Tobacco Use Types [...] on filedocumented in this encounter Care Teams Conduit Cleaner Relationship Specialty Start Date End Date Simón Davidson DO [address] [facility] [place] [address] PCP - General 10/21/17 documented as of this encounter
--- OUTSIDE RECORDS SUMMARY | 2025-01-14 14:45 | XMS_ITS | Encounter Summary ---
Author Organization [facility] Address [address] [place] [address] Care Team Providers Care Director Of Manufacturing Name Role Phone Diony Sharma MD Primary Care Provider [phone] Kenyetta Dove MD Unavailable [phone] Simón Ozuna MD Unavailable [phone] Amanda Montiel MD Unavailable [phone] Krish Hodge MD Unavailable [phone] Beny Hoskins MD Unavailable [phone] Encounter Details Date Type Department Care Team (Late st Contact Info) Description 10/16/2024 Orders Only [facility] [address] [place] [phone] Kenyetta Dove MD [address] [place] [address] Abnormal cortisol level (Primary Dx) [...] [address] [place] [address] 02/12/2025 11:10 AM EDT Office Visit [facility] [address] [place] [address] Kenyetta Dove MD [address] [place] [address] documented as of this encounter Procedures Procedure [...] Primary documented in this encounter Care Teams Director Of Manufacturing Relationship Specialty Start Date End Date Diony Sharma MD [address] [place] [address] PCP - General Internal Medicine 01/24/24 Kenyetta Dove MD [address] [place] [address] Referring Physician Endocrinology 08/01/24 Simón Ozuna MD [address] [place] [address] Referring Physician Urology 08/01/24 Amanda Montiel MD [address] [facility] [address] [place] [address] Obstetrics and Gynecology 08/01/24 Krish Hodge MD [address] [place] [address] Referring Physician Ophthalmology 08/01/24 Beny Hoskins MD [address] [place] [address] [address] [place] [address] Referring Physician Gastroenterology 08/01/24 [facility] Mental Health 08/01/24 documented as of this encounter
--- OUTSIDE RECORDS SUMMARY | 2025-01-14 14:45 | XMS_ITS | Patient Health Record ---
Author Organization [employer] [facility] es Address [address] [place] [address] Care Team Providers Care Manager Care Management Name Role Phone Mcintosh Radha Primary Care Provider [phone] Gissell Kaufman Unavailable [phone] Dr. Bob Ureña Unavailable [phone] Mary Fu Unavailable [phone] Allergies No Known Allergies Reason For Referral No Information Medications Medication SIG (Take, Route, Frequency, Duration) Notes Start Date End Date Status Meclofenamate Sodium 50 MG 1 capsule Orally prn bleeding; Duration: 30 Not-Takin g Cleocin 2 % 1 application at bedtime Vaginal Once a day; Duration: 5 days 08/20/2014 Not-Taking Cardizem CD 240 MG 1 capsule Orally Onc e a day Active Tylenol Extra Strength 500 MG 2 [...] as needed Orally 2x a day Not-Taking Propranolol HCl 20 MG 1 tablet Orally twice daily; Duration: 90 days As needed Active Vitamin D3 50 MCG (2000 UT) 1 capsule Orally Once a day [...] Status Risk Notes Problem Generalized anxiety disorder (24156634) Generalized Anxiety Disorder (SANDRA) (F41.1) Active confirmed Problem Body mass index 40+ - morbidly obese (497714941) BMI 40.0-44.9, adult (Z68.41) Active confirmed Problem Depressive disorder (71351323) Unspecified Depressive Disorder (F32.9) Active confirmed Problem Posttraumatic stress disorder (54354898) Post traumatic stress disorder (F43.10) Active confirmed Vital Signs Heart Rate 88 /min 10/24/2024 Oximetry 98 % 10/24/2024 Blood pressure diastolic 80 mm Hg 10/24/2024 Height 67.5 in 10/24/2024 Blood pressure systolic 130 mm Hg 10/24/2024 Weight 307.0 lbs 10/24/2024 BMI 47.37 kg/m2 10/24/2024 Encounters Encounter Location Date Provider Diagnosis [facility] [address] [place] [address] 05/24/2024 Radha Mcintosh Generalized Anxiety Disorder (SANDRA) F41.1 [facility] [address] [place] [address] 06/25/2024 Radha Mcintosh Generalized Anxiety Disorder (SANDRA) F41.1 [facility] [address] [place] [address] 01/09/2025 Radha Mcintosh Generalized Anxiety Disorder (SANDRA) F41.1 [facility] [place] [address] [place] [address] 05/01/2024 Mary Fu Other dental procedure status Z98.818 ; Acute gingivitis, plaque induced K05.00 ; Encounter for dental examination and cleaning with abnormal findings Z01.21 ; Dental caries on pit and fissure surface penetrating into dentin K02.52 and Necrosis of pulp K04.1 [facility] [address] [place] [address] 11/01/2024 Gissell Mandeep Acute gingivitis, plaque induced K05.00 [facility] [address] [place] [address] 10/24/2024 Radha Mcintosh Generalized Anxiety Disorder (SANDRA) F41.1 and Post traumatic stress disorder F43.10 [facility] [address] [place] [address] 04/18/2024 Radha Mcintosh Generalized Anxiety Disorder (SANDRA) F41.1 ; Unspecified Depressive Disorder F32.9 and Post traumatic stress disorder F43.10 [facility] [address] [place] [address] 07/18/2024 Radha Mcintosh Generalized Anxiety Disorder (SANDRA) F41.1 ; Unspecified Depressive Disorder F32.9 and Post traumatic stress disorder F43.10 [facility] [address] [place] [address] 01/31/2024 Radha Mcintosh Generalized Anxiety Disorder (SANDRA) [...] Acute gingivitis, plaque induced (ICD-10 - K05.00) 01/09/2025 Generalized Anxiety Disorder (SANDRA) (ICD-10 - F41.1) 01/31/2024 Unspecified Depressive Disorder (ICD-10 - F32.9) [...] 04/18/2024 Unspecified Depressive Disorder (ICD-10 - F32.9) 04/18/2024 Post traumatic stress disorder (ICD-10 - [...] Mcintosh, 0 01/16/2025 01:45:00 PM, [address] [facility], [place], [address], Provider Name:Bob Ureña, 0 02/21/2025 10:35:00 AM, [address], [place], [address], Provider Name:Gissell Kaufman , 07/04/2025 02:20:00 PM, [address], [place], [address], Insurance Providers Payer Name Payer Address Payer Phone Subscriber Number Group Number Insured Name Patient Relationship to Insured Coverage Start Date Coverage End Date MEDICARE CGS 1 [facility] [place] [address] [phone] [id number] EMILY TORIBIO Self - patient is the insured 0 MEDICAID SEC TO [facility] [address] [place] [address] [id number] EMILY TORIBIO Self - patient is the insured 0 DENTAL MEDICAID [facility] [address] [place] [address] [id number] EMILY TORIBIO Self - patient is the insured 0 MEDICAID SEC TO [facility] [address] [place] [address] [id number] EMILY TORIBIO Self - patient is the [...]
--- OUTSIDE RECORDS SUMMARY | 2025-01-14 14:45 | XMS_ITS | Clinical Summary ---
Author Organization [facility] Address [address] [place] [address] Care Team Providers Care Cable Television Program Director Name Role Phone Diony Sharma MD Primary Care Provider [phone] Kenyetta Dove MD Unavailable [phone] Simón Ozuna MD Unavailable [phone] Amanda Montiel MD Unavailable [phone] Krish Hodge MD Unavailable [phone] Beny Hoskins MD Unavailable [phone] Allergies No known active allergies Medications B Vdoqmsy-Qzsasl-GH (Super Quints B-50) tablet Take by mouth [...] (PRO-BIOTIC BLEND PO) Take by mouth Active escitalopram (Lexapro) 20 MG tablet Take 20 mg by mouth Daily Active levothyroxine (Synthroid, Levoxyl) 125 MCG tabletIndications :Postoperative hypothyroidism Take 1 tablet (125 mcg) by mouth Daily 90 tablet 3 08/15/19 25 2025 Active cholecalciferol (Vitamin D-3) 50 MCG (1999 UT) capsuleIndication s:Primary osteoarthritis involving multiple joints Take 1 capsule (50 mcg) by mouth in the morning. 30 capsule 11 09/25/19 25 Active metroNIDAZOLE (Metrogel) 0.75 % gelIndications:Ro sacea Apply twice daily to rosacea for 8 weeks. 45 g 10/10/19 25 2025 Active nystatin (Mycostatin) ointmentIndicatio ns:Cutaneous Candidiasis Apply thin film BID prn irritation 30 g 1 10/17/19 25 Active losartan-hydroCHL OROthiazide (Hyzaar) 100-12.5 MG tablet Take 1 tablet by mouth Daily Active liothyronine (Cytomel) 5 MCG tabletIndications :Acquired hypothyroidism TAKE 1 TABLET BY MOUTH 2 TIMES A DAY 180 tablet 1 01/02/20 25 Active HYDROcodone-aceta minophen (Lefors) 5-325 MG tabletIndications :Acute pain of left knee Take 1-2 tablets by mouth every 6 (six) hours if needed for severe pain for up to 7 days 42 tablet 01/12/20 25 2024 Active liothyronine (Cytomel) 5 MCG tabletIndications :Acquired hypothyroidism Take 1 tablet (5 mcg) by mouth Daily 90 tablet 1 05/08/20 24 2024 Discontinued Hospital, Clinic, or Other Facility Administered Medication [...] Encounters Date Type Department Care Team Description 01/11/2025 1:30 PM EDT Office Visit [facility] [address] [place] [phone] Dalia Mar NP Acute pain of left knee (Primary Dx) 01/11/2025 Travel 01/01/2025 Refill [facility] [address] [place] [address] Kenyetta Dove MD Acquired hypothyroidism 12/20/2024 3:00 PM EDT Office Visit [facility] [address] [place] [address] Shilpa Menendez PA Bilateral lower extremity edema (Primary Dx); Hepatomegaly 12/20/2024 Travel 12/20/2024 Results Follow-Up [facility] [address] [place] [address] abdomen pelvis w IV contrast 12/19/2024 11:45 AM EDT Ancillary Procedure [facility] [address] [place] [address] Vitamin D deficiency (Primary Dx) 12/19/2024 Travel 12/13/2024 10:45 AM EDT Office Visit [facility] [address] [place] [phone] Diony Sharma MD Bilateral lower extremity edema (Primary Dx); Pulmonary hypertension (HCC); Dyspnea, unspecified type; Essential hypertension ; Medicare annual wellness visit, subsequent; ACP (advance care planning); Obstructive sleep apnea syndrome; Pain of upper abdomen 12/13/2024 Travel 12/10/2024 Results Follow-Up [facility] [address] [facility] [address] [place] [address] Omid Stevens, MANAGER ER Rheumatoid factor, WILL, Protein electrophoresis, serum, FREE K+L LT CHAINS, QN, S 12/10/2024 Results Follow-Up [facility] [address] [facility] [address] [place] [address] Omid Stevens, MANAGER ER Hemoglobin a1c with eag 12/07/2024 External Result Encounter [facility] External Department Unsolicited Omid Stevens, MANAGER ER 12/07/2024 External Result Encounter [facility] External Department Unsolicited Omid Stevens, MANAGER ER 12/07/2024 External Result Encounter [facility] External Department Unsolicited Omid Stevens, MANAGER ER 12/07/2024 External Result Encounter [facility] External Department Unsolicited Omid Stevens, MANAGER ER 12/07/2024 External Result Encounter [facility] External Department Unsolicited Omid Stevens, MANAGER ER 12/07/2024 External Result Encounter [facility] External Department Unsolicited Omid Stevens, MANAGER ER 12/07/2024 External Result Encounter [facility] External Department Unsolicited Omid Stevens, MANAGER ER 12/07/2024 External Result Encounter [facility] External Department Unsolicited Omid Stevens, MANAGER ER 12/06/2024 3:30 PM EDT Office Visit [facility] [address] [facility] [address] [place] [address] Omid Stevens, MANAGER ER Bilateral lower extremity edema (Primary Dx); Pulmonary hypertension (HCC); Dyspnea, unspecified type; Snoring; Anasarca; Essential hypertension ; History of anemia; Hypoalbuminemia; Hypoproteinemia (HCC) 12/06/2024 Travel 11/28/2024 Telephone [facility] [address] [facility] [address] [place] [address] Faustino Zuñiga MA 11/21/2024 10:15 AM EDT Office Visit [facility] [address] [place] [address] Dalia Mar NP Bilateral lower extremity edema (Primary Dx); Essential hypertension ; Pulmonary hypertension (HCC); Cellulitis of right lower extremity; Snoring 11/21/2024 Results Follow-Up [facility] [address] [place] [address] Dalia Mar NP Basic metabolic panel, B-type natriuretic peptide, XR lumbar spine 2 or 3 views 11/21/2024 Travel 11/09/2024 External Result Encounter [facility] External Department Unsolicited Shilpa Menendez PA 10/16/2024 Telephone [facility] [place] [facility] [address] [place] [address] Amanda Montiel MD 10/16/2024 Telephone [facility] [address] [place] [address] Liliya Escobedo LPN 10/16/2024 Orders Only [facility] [place] [facility] [address] [place] [address] Amanda Montiel MD Acute vaginitis (Primary Dx) 10/16/2024 Orders Only [facility] [place] [facility] [address] [place] [address] Kenyetta Dove MD Abnormal cortisol level (Primary Dx) from Last 3 Months Immunizations Immunization Administration [...] 16 08/14/2024 10:45 AM EDT Oxygen Saturation 99% 01/11/2025 1:43 PM EDT Inhaled Oxygen Concentration - - Weight 147 kg (323 lb) 01/11/2025 1:43 PM EDT Height 170.2 cm (5' 7 ) 12/20/2024 3:10 PM EDT Body Mass Index 50.59 12/20/2024 3:10 PM EDT Plan of Treatment Upcoming Encounters Date Type Department Care Team (Late st Contact Info) Description 02/06/2025 1:00 PM EDT Office Visit [facility] [address] [place] [address] 02/12/2025 11:10 AM EDT Office Visit [facility] [address] [place] [address] Kenyetta Dove MD [address] [place] [address] Health Maintenance Due Date Last Done Comments CT Colonography 1975 Colonoscopy 1975 Colorectal Cancer Screening 1975 FIT-DNA 1975 FIT 1975 FOBT 1975 Sigmoidoscopy 1975 Pap Smear 04/04/2001 04/04/1998 Cervical Cancer Screening 11/08/2023 HPV/Cotest 11/08/2023 11/07/2018 [...] 10/25/2024 10:56 AM EDT Abnormal cortisol level MAMMO 3D,BILATERAL SCREENING MAMMOGRAM WITH TOMOSY Routine 01/20/2024 10:01 AM EDT THINPREP TIS PAP REFLEX HPV MRNA E6/E7 (44045) Routine 11/07/2018 from Last 3 Months or [...] Spinal cord stimulator noted. Procedure Note Diony Wetzel, DO - 12/19/2024 EXAM: CT ABDOMEN PELVIS [...] Thacker M.D. 12/07/2024 11:37 AM Dictation Location: [place] [address] Transcribed By: [facility] 12/07/24 1137 Dictated By: Rizwana Thacker MD 12/07/24 1137 Signed By: <Electronically signed by MD Rizwana Thacker in [place]> 12/07/24 1137 Narrative 12/07/2024 11:40 AM EDT [facility] Main [place] [address] [place] [address] XRay Report Signed Patient: Lupe Pickard MR#: [id number] : 1975 Acct:[id number] Age/Sex: 49 / F ADM Date: 12/07/24 Loc: XD Room: Type: [facility] Attending Dr: Omid Stevens RN, MSN, ANP-C [...] 2V* Procedure Note Radiology, Radiologist, - 12/07/2024 [facility] Main [place] [address] [place] [address] XRay Report Signed Patient: Lupe Pickard MMR#: [id number] : 1975Acct:[id number] Age/Sex: 49 / FADM Date: 12/07/24 Loc: XD Room:Type: [facility] Attending Dr: Omid Stevens RN, MSN, ANP-C [...] Thacker M.D. 12/07/2024 11:37 AM Dictation Location: [place] [address] Transcribed By: [facility] 12/07/24 1137 Dictated By: Rizwana Thacker MD 12/07/24 1137 Signed By: <Electronically signed by MD Rizwana Thacker in [place]> 12/07/24 1137 us Omid Stevens MANAGER ER IMG XR PROCEDURES Final Resu lt * FREE K+L LT CHAINS, QN, S (12/07/2024 9:51 AM EDT) FREE KAPPA LIGHT CHAINS, S 12.3 3.3 - 19.4 mg/L 12/10/2024 2:36 PM EDT [facility] FREE LAMBDA LIGHT CHAINS, S 14.2 5.7 - 26.3 mg/L 12/10/2024 2:36 PM EDT [facility] KAPPA/LAMBDA RATIO, S 0.87 0.26 - 1.65 12/10/2024 2:36 PM EDT [facility] Comment: Performed at: - [address] [id number] [employer]: Ramirez Ca PhD, Phone: [phone] Other Topography unknown / Unknown 12/07/2024 9:51 AM EDT 12/07/2024 9:51 AM EDT us Omid Stevens MANAGER ER LAB BLOOD ORDERABLES Final R esult Performing Organization Address City/[facility]/[place] [address], * (ABNORMAL) Hemoglobin a1c with eag (12/07/2024 9:51 AM EDT) HEMOGLOBIN A1C 5.7(H) 4.3 - 5.6 % 12/07/2024 12:35 PM EDT [facility] Comment: Increased risk for diabetes: 5.7 - 6.4 diabetes: >6.4 glycemic control for adults with diabetes: <7.0 ESTIMATED AVERAGE GLUCOSE 117 mg/dL 12/07/2024 12:35 PM EDT [facility] Blood (Blood) 12/07/2024 9:5 1 AM EDT 12/07/2024 9:51 AM EDT Omid Stevens MANAGER ER LAB BLOOD ORDERABLES Final R esult Performing Organization Address City/[facility]/ZIP Co de Phone Number [place] [phone], [place] [phone] * Microalbumin / creatinine urine ratio (12/07/2024 9:51 AM EDT) MICROALBUMIN, URINE <0.7 0.0 - 1.8 mg/dL 12/07/2024 11:33 AM EDT [facility] CREATININE, URINE (RANDOM) 75.00 mg/dL 12/07/2024 11:30 AM EDT [facility] Comment:No reference range e stablished MICROALBUMIN/CR EATININE RATIO Test not performed 0.0 - 30.0 mg/g 12/07/2024 11:33 AM EDT [facility] Other 12/07/2024 9:51 AM EDT 12/07/2024 9:51 AM EDT us Omid Stevens MANAGER ER LAB URINE ORDERABLES Final R esult Performing Organization Address [facility] Co de Phone Number [facility] [address] [place] [address], [facility] [address] [place] [address] * Urinalysis with reflex microscopic (12/07/2024 9:51 AM EDT) COLOR,URINE Light-Yellow Yellow 12/07[facility]AR[facility],URI NE Clear Clear 12/07/2024 10:59 AM [facility] SPECIFICY GRAVITY,URINE 1.023 1.001 - 1.030 12/07/2024 10:59 AM [facility] PH,URINE 7.0 5.0 - 9.0 12/07/2024 10:59 [facility] LEUKOCYTE ESTERASE,URINE Negative Negative 12/07/2024 10:59 [facility] NITRITE,URINE Negative Negative 12/07/2024 10:59 AM EDT [facility] PROTEIN,URINE Negative Negative mg/dL 12/07/2024 10:59 [facility] GLUCOSE,URINE (UA) Normal Normal mg/dL 12/07/2024 10:59 AM EDT [facility] KETONES,URINE Negative Negative 12/07/2024 10:59 AM EDT [facility] UROBILINOGEN,U RINE Normal Normal mg/dL 12/07/2024 10:59 [facility] BILIRUBIN,URIN E Negative Negative 12/07/2024 10:59 AM EDT [facility] OCCULT BLOOD,URINE Negative Negative 12/07/2024 10:59 AM EDT [facility] RBC,URINE 1-2 0 - 4 [HPF] 12/07/2024 11:00 AM EDT [facility] WBC,URINE 1-2 0 - 4 [HPF] 12/07/2024 11:00 AM EDT [facility] SQUAMOUS EPITHELIAL CELL,URINE 1-2 0 - 2 [HPF] 12/07/2024 11:00 AM EDT [facility] BACTERIA,URINE None Seen None Seen [HPF] 12/07/2024 11:00 AM EDT [facility] HYALINE CASTS,URINE None 0 - 8 [LPF] 12/07/2024 11:00 AM EDT [facility] MUCUS,URINE Rare [LPF] 12/07/2024 11:00 AM EDT [facility] Other 12/07/2024 9:51 AM EDT 12/07/2024 9:51 AM EDT Narrative [facility] - 12/07/2024 11:00 AM EDT Name Collection Type:: Clean-Voided Midstream us Omid Stevens MANAGER ER LAB URINE ORDERABLES Final R esult Performing Organization Address City/[facility]/ZIP Co de Phone Number [address] [address], [address] [address] * (ABNORMAL) Sedimentation rate, automated (12/07/2024 9:51 AM EDT) ERYTHROCYTE SEDIMENTATION RATE 22(H) 0 - 19 12/07/2024 11:25 AM EDT [facility] Blood (Blood) 12/07/2024 9:5 1 AM EDT 12/07/2024 9:51 AM EDT us Omid Stevens MANAGER ER LAB BLOOD ORDERABLES Final R esult [address] [address], [facility] [address] [place] [phone] * Rheumatoid factor (12/07/2024 9:51 AM EDT) Pathologist [facility] RHEUMATOID FACTOR 10.4 <14.0 12/08/2024 4:36 AM EDT [facility] Comment: Performed at: - [facility] [id number] [employer]: Ramirez Ca PhD, Phone: [phone] Other Topography unknown / Unknown 12/07/2024 9:51 AM EDT 12/07/2024 9:51 AM EDT Omid Stevens MANAGER ER LAB BLOOD ORDERABLES Final R esult Performing Organization Address [facility] [place] [address], * (ABNORMAL) High sensitivity CRP (12/07/2024 9:51 AM EDT) [facility] HIGH SENSITIVE CRP 15.7(H) 0.0 - 0.9 mg/L 12/07/2024 11:19 AM EDT [facility] Comment: Cardiovascular Risk Classification (AHA/CDC) hsCRP < [...] EDT 12/07/2024 9:51 AM EDT Omid Stevens MANAGER ER LAB BLOOD ORDERABLES Final R esult Performing Organization Address City/[facility] Co de Phone Number [address] [address], [facility] [address] [place] [address] * WILL (12/07/2024 9:51 AM EDT) ANTINUCLEAR ABS, IFA Negative . 12/10/2024 9:08 AM EDT [facility] Comment: Negative <1:80 Borderline 1:80 Positive >1:80 ICAP nomenclature: AC-0 For more information about Hep-2 cell patterns use ANApatterns.org, the official website for the International Consensus on Antinuclear Antibody (WILL) Patterns (ICAP). Performed at: - [facility] [id number] [employer]: Ramirez Ca PhD, Phone: [phone] Other Topography unknown / Unknown 12/07/2024 9:51 AM EDT 12/07/2024 9:51 AM EDT us Omid Stevens MANAGER ER LAB BLOOD ORDERABLES Final R esult [facility] [address] [place] [address], * Protein electrophoresis, serum (12/07/2024 9:51 AM EDT) TOTAL PROTEIN, SERUM 6.4 6.0 - 8.5 g/dL 12/10/2024 2:36 PM EDT [facility] ALBUMIN, SERUM 3.3 2.9 - 4.4 g/dL 12/10/2024 2:36 PM EDT [facility] NEBBL-3-BNWTSRPR 0.2 0.0 - 0.4 g/dL 12/10/2024 2:36 PM EDT [facility] KFJUL-2-WPIPOCRA 0.9 0.4 - 1.0 g/dL 12/10/2024 2:36 PM EDT [facility] BETA GLOBULIN 1.1 0.7 - 1.3 g/dL 12/10/2024 2:36 PM EDT [facility] GAMMA GLOBULIN 0.9 0.4 - 1.8 g/dL 12/10/2024 2:36 PM EDT [facility] M-SPIKE Not Observed Not Observed g/dL 12/10/2024 2:36 PM EDT [facility] GLOBULIN, TOTAL 3.1 2.2 - 3.9 g/dL 12/10/2024 2:36 PM EDT [facility] A/G RATIO 1.1 0.7 - 1.7 12/10/2024 2:36 PM EDT [facility] SPE-NOTE Comment . 12/10/2024 2:36 PM EDT [facility] Comment: Protein electrophoresis scan will follow via computer, mail, or rug cleaning supervisor delivery. Other Topography unknown / Unknown 12/07/2024 9:51 AM EDT 12/07/2024 9:51 AM EDT Omid Stevens MANAGER ER LAB BLOOD ORDERABLES Final R esult Performing Organization Address City/[facility]/ZIP Co de Phone Number [place] [phone], * Magnesium (12/07/2024 9:51 AM EDT) MAGNESIUM 1.9 1.9 - 2.7 mg/dL 12/07/2024 11:21 AM EDT [facility] Other Topography unknown / Unknown 12/07/2024 9:51 AM EDT 12/07/2024 9:51 AM EDT Omid Stevens MANAGER ER LAB BLOOD ORDERABLES Final R esult Performing Organization Address [facility] Co de Phone Number [place] [phone], [place] [phone] * (ABNORMAL) Comprehensive metabolic panel (12/07/2024 9:51 AM EDT) Glucose 109(H) 70 - 100 mg/dL 12/07/2024 11:21 AM EDT [facility] Comment: Random Glucose Reference Range is dependent on time and content of last meal. Glucose of more than 200 mg/dL in a nonstressed, ambulatory subject supports the diagnosis of Diabetes Mellitus. ADA recommended reference range BUN 12 7 - 25 mg/dL 12/07/2024 11:21 AM EDT [facility] CREATININE 0.50(L) 0.60 - 1.20 mg/dL 12/07/2024 11:21 AM EDT [facility] ESTIMATED GFR >60.0 12/07/2024 11:21 AM EDT [facility] Sodium 139 136 - 145 mmol/L 12/07/2024 11:21 AM EDT [facility] Potassium, Bld 4.2 3.5 - 5.1 mmol/L 12/07/2024 11:21 AM EDT [facility] Chloride 101 98 - 107 mmol/L 12/07/2024 11:21 AM EDT [facility] Carbon Dioxide 31.0 21.0 - 31.0 mmol/L 12/07/2024 11:21 AM EDT [facility] Anion Gap 11.2 6.0 - 15.0 12/07/2024 11:21 AM EDT [facility] Calcium 9.0 8.6 - 10.3 mg/dL 12/07/2024 11:21 AM EDT [facility] TOTAL PROTEIN 6.5 6.4 - 8.9 g/dL 12/07/2024 11:21 AM EDT [facility] ALBUMIN LEVEL 3.8 3.5 - 5.7 g/dL 12/07/2024 11:21 AM EDT [facility] GLOBULIN 2.7 g/dL 12/07/2024 11:21 AM EDT [facility] ALBUMIN/GLOBULIN RATIO 1.4 12/07/2024 11:21 AM EDT [facility] BILIRUBIN,TOTAL 0.4 0.3 - 1.0 mg/dL 12/07/2024 11:21 AM EDT [facility] ASPARTATE AMINO TRANSFERASE 20 13 - 39 U/L 12/07/2024 11:21 AM EDT [facility] ALANINE AMINOTRANSFERASE 29 7 - 52 U/L 12/07/2024 11:21 AM EDT [facility] ALKALINE PHOSPHATASE 56 34 - 104 U/L 12/07/2024 11:21 AM EDT [facility] Other Topography unknown / Unknown 12/07/2024 9:51 AM EDT 12/07/2024 9:51 AM EDT us Omid Stevens MANAGER ER LAB BLOOD ORDERABLES Final R esult [facility] [address] [place] [address], [address] [address] * XR lumbar spine 2 or 3 views (11/29/2024 2:02 PM EDT) Anatomical Region Laterality Modality Spine, L-spine Radiographic Quiana ging 11/29/2024 2:02 PM EDT Impressions 11/29/2024 2:06 PM EDT Degenerative changes notably lower lumbar spine. Impression dictated by: Larry Perez M.D. 11/29/2024 2:03 PM Dictation Location: [place] [address] Transcribed By: [facility] 11/29/24 1403 Dictated By: Larry Perez MD 11/29/24 1402 Signed By: <Electronically signed by Larry Perez MD in [place]> 11/29/24 1403 Narrative 11/29/2024 2:06 PM EDT [facility] Main [address] [address] XRay Report Signed Patient: Lupe Pickard MR#: [id number] : 1975 Acct:[id number] Age/Sex: 49 / F ADM Date: 11/29/24 Loc: XD Room: Type: [facility] Attending Dr: Dalia Mar MANAGER ER-C Copies to: Dalia Mar NP Ordering Provider: [...] 2-3V* Procedure Note Radiology, Radiologist, - 11/29/2024 [facility] Main [address] [address] XRay Report Signed Patient: Lupe Pickard MMR#: [id number] : 1975Acct:[id number] Age/Sex: 49 / FADM Date: 11/29/24 Loc: XD Room:Type: [facility] Attending Dr: Dalia Mar MANAGER ER-C Copies to: Dalia Mar NP Ordering Provider: [...] Perez M.D. 11/29/2024 2:03 PM Dictation Location: [place] [address] Transcribed By: [facility] 11/29/24 1403 Dictated By: Larry Perez MD 11/29/24 1402 Signed By: <Electronically signed by Larry Perez MD in [place]> 11/29/24 1403 Dalia Mar MANAGER ER IMG XR PROCEDURES Final Resul t * T3, free (11/29/2024 9:06 AM EDT) Blood Venous blood specimen / Unknown us Kenyetta Dove MD LAB BLOOD ORDERABLES Final Re sult [facility] * TSH (11/27/2024 3:08 PM EDT) Blood Venous blood specimen / Unknown us Kenyetta Dove MD LAB BLOOD ORDERABLES Final Re sult [facility] * T4, free (11/27/2024 3:08 PM EDT) Blood Venous blood specimen / Unknown us Kenyetta Dove MD LAB BLOOD ORDERABLES Final Re sult [facility] * (ABNORMAL) Basic metabolic panel (11/27/2024 1:05 PM EDT) Only the most recent of2 resultswithin the time period is included. Glucose 72 70 - 100 mg/dL 11/27/2024 2:18 PM EDT [facility] Comment: Random Glucose Reference Range is dependent on time and content of last meal. Glucose of more than 200 mg/dL in a nonstressed, ambulatory subject supports the diagnosis of Diabetes Mellitus. ADA recommended reference range BUN 9 7 - 25 mg/dL 11/27/2024 2:18 PM EDT [facility] CREATININE 0.53(L) 0.60 - 1.20 mg/dL 11/27/2024 2:18 PM EDT [facility] ESTIMATED GFR >60.0 11/27/2024 2:18 PM EDT [facility] Sodium 139 136 - 145 mmol/L 11/27/2024 2:18 PM EDT [facility] Potassium, Bld 4.2 3.5 - 5.1 mmol/L 11/27/2024 2:18 PM EDT [facility] Chloride 101 98 - 107 mmol/L 11/27/2024 2:18 PM EDT [facility] Carbon Dioxide 31.9(H) 21.0 - 31.0 mmol/L 11/27/2024 2:18 PM EDT [facility] Anion Gap 10.3 6.0 - 15.0 11/27/2024 2:18 PM EDT [facility] Calcium 8.6 8.6 - 10.3 mg/dL 11/27/2024 2:18 PM EDT [facility] Other Topography unknown / Unknown 11/27/2024 1:05 PM EDT 11/27/2024 1:05 PM EDT us Diony Sharma MD LAB BLOOD ORDERABLES Final Resu lt Performing Organization Address City/[facility]/ZIP Co de Phone Number [address] [address], [address] [address] * B-type natriuretic peptide (11/21/2024 11:44 AM EDT) B-TYPE NATRIURETIC PEPTIDE 54.0 5 - 100 pg/mL 11/21/2024 12:35 PM EDT [facility] Other Venous blood specimen / Unknown 11/21/2024 11:44 AM EDT 11/21/2024 11:44 AM EDT Dalia Mar NP LAB BLOOD ORDERABLES Final Re sult Performing Organization Address [facility] Co de Phone Number [address] [address], [address] [address] * Transthoracic echo (TTE) complete (11/09/2024 8:58 AM EDT) Anatomical Region Laterality Modality Heart Ultrasound 11/09/2024 8:58 AM EDT Narrative 11/09/2024 4:45 PM EDT [facility] Main [place] [address] [place], [place] [id number] Echocardiogram Signed Patient: Lupe Pickard MR#: [id number] : 1975 Acct:[id number] Age/Sex: 49 / F ADM Date: 11/09/24 Loc: [facility]: [facility]: Shilpa Menendez PA-C Ordering Provider: [...] 11/09/24 0858 Signed By: Selina Valverde MD, [facility] 11/09/24 1644 Procedure Note Selina Valverde MD - 11/09/2024 [place] [address] Echocardiogram Signed Patient: Lupe Pickard [facility]#: [id number] : 1975Acct:[id number] Age/Sex: 49 / FADM Date: 11/09/24 Loc: Room:Type: [facility] Attending Dr: Shilpa Menendez PA-C Ordering Provider: Shilpa Menendez PA-C Date of Service: 11/09/24/ ECH/ECH echo transthoracic: EDEMA, SOB Copies to: Selina Valverde MD, [facility] Shilpa Menendez PA-C BSA: 2.4 m2 BP: [...] 11/09/24 0858 Signed By: Selina Valverde MD, [facility] 11/09/24 0059 Shilpa SALAS CV ECHO PROCEDURES Final Res [...] THINPREP TIS PAP REFLEX HPV MRNA E6/E7 (32123) (11/07/2018) CLINICAL INFORMATION: None given [facility] [...] LAB Comment: [facility], SCT(ASCP) CT screening location: [place] [address]. COMMENT SEE COMMENT [facility] EXTERNAL [...] Kenji Coreas MD [facility] Final Result [facility] from Last 3 Months or Most Recently Relevant to Health Maintenance Insurance MEDICARE MEDICAID [place] Care Teams Cable Television Program Director Relationship Specialty Start Date End Date Diony Sharma MD [address] [facility] [address] [place] [address] PCP - General Internal Medicine 01/24/24 Kenyetta Dove MD [address] [place] [address] Referring Physician Endocrinology 08/01/24 Simón Ozuna MD [address] [facility] [place] [address] Referring Physician Urology 08/01/24 Amanda Montiel MD [address] [facility] [address] [place] [address] Obstetrics and Gynecology 08/01/24 Krish Hodge MD [address] [place] [address] Referring Physician Ophthalmology 08/01/24 Beny Hoskins MD [address] [place] [address] [address] [place] [address] Referring Physician Gastroenterology 08/01/24 [facility] 08/01/24
--- OUTSIDE RECORDS SUMMARY | 2025-01-14 14:45 | XMS_ITS | Encounter Summary ---
Author Organization [facility] Healthcare Address [address] [place] [address] Care Team Providers Care Divorce Lawyer Name Role Phone Diony Sharma MD Primary Care Provider [phone] Kenyetta Dove MD Unavailable [phone] Simón Ozuna MD Unavailable [phone] Amanda Montiel MD Unavailable [phone] Krish Hodge MD Unavailable [phone] Beny Hoskins MD Unavailable [phone] Encounter Details Date Type Department Care Team (Late st Contact Info) Description 12/10/2024 Results Follow-Up [facility] Internal Medicine [address] [facility] [address] [place] [address] Omid Stevens, SENIOR SYSTEMS ARCHITECT [address] [facility] [address] [place] [address] Hemoglobin a1c with eag Social History Tobacco Use Types Packs/Day Years [...] 02/06/2025 1:00 PM EDT Office Visit [facility] [address] [place] [id number] 02/12/2025 11:10 AM EDT Office Visit [facility] [address] [place] [address] Kenyetta Dove MD [address] [place] [address] documented as of this encounter Visit Diagnoses Not on filedocumented in this encounter Care Teams Divorce Lawyer Relationship Specialty Start Date End Date Diony Sharma MD [address] [place] [address] PCP - General Internal Medicine 01/24/24 Kenyetta Dove MD [address] [place] [address] Referring Physician Endocrinology 08/01/24 Simón Ozuna MD [address] [place] [address] Referring Physician Urology 08/01/24 Amanda Montiel MD [address] [place] [address] Obstetrics and Gynecology 08/01/24 Krish Hodge MD [address] [place] [address] Referring Physician Ophthalmology 08/01/24 Beny Hoskins MD [address] [place] [address] [address] [place] [address] Referring Physician Gastroenterology 08/01/24 [facility] Mental Health 08/01/24 documented as of this encounter
--- OUTSIDE RECORDS SUMMARY | 2025-01-14 14:45 | XMS_ITS | Encounter Summary ---
Author Organization [facility] Address [address] [place] [address] Phone Care Team Providers Care Medical Consultant Name Role Phone Simón Davidson DO Primary Care Provider + Encounter Details Date Type Department Care Team (Late st Contact Info) Description 11/05/2022 Orders Only [facility] LEGACY [address] [place] [address] Conversion, Onbase Social History Tobacco Use Types [...] filedocumented in this encounter Care Teams Medical Consultant Relationship Specialty Start Date End Date Simón Davidson DO [address] [facility] [place] [address] PCP - General 10/21/17 documented as of this encounter
--- OUTSIDE RECORDS SUMMARY | 2025-01-14 14:45 | XMS_ITS | Encounter Summary ---
Author Organization [facility] Healthcare Address [address] [place] [address] Care Team Providers Care Bottom Cementer Name Role Phone Diony Sharma MD Primary Care Provider [phone] Kenyetta Dove MD Unavailable [phone] Simón Ozuna MD Unavailable [phone] Amanda Montiel MD Unavailable [phone] Krish Hodge MD Unavailable [phone] Beny Hoskins MD Unavailable [phone] Reason for Visit * Reason Onset Date Comments lab results 12/10/2024 Encounter Details Date Type Department Care Team (Late st Contact Info) Description 12/10/2024 Results Follow-Up [facility] Internal Medicine [address] [facility] [address] [place] [address] Omid Stevens, FAMILY RESOURCE MANAGEMENT SPECIALIST [address] [facility] [address] [place] [address] Rheumatoid factor, WILL, Protein electrophoresis, serum, FREE K+L LT CHAINS, QN, S Social History Tobacco Use Types Packs/Day Years [...] ----- Message ----- From: Interface, Incoming Lab [facility] Background Sent: 12/10/2024 2:37 PM EDT To: [...] [address] [place] [address] 02/12/2025 11:10 AM EDT Office Visit SAMANTHA [facility] Endocrinology [address] [place] [address] Kenyetta Dove MD [address] [place] [address] documented as of this encounter Visit Diagnoses Not on filedocumented in this encounter Care Teams Bottom Cementer Relationship Specialty Start Date End Date Diony Sharma MD [address] [place] [address] PCP - General Internal Medicine 01/24/24 Kenyetta Dove MD [address] [place] [address] Referring Physician Endocrinology 08/01/24 Simón Ozuna MD [address] [place] [address] Referring Physician Urology 08/01/24 Amanda Montiel MD [address] [place] [address] Obstetrics and Gynecology 08/01/24 Krish Hodge MD [address] [facility] [place] [address] Referring Physician Ophthalmology 08/01/24 Beny Hoskins MD [address] [place] [address] [address] [place] [address] Referring Physician Gastroenterology 08/01/24 [facility] Mental Health 08/01/24 documented as of this encounter
--- OUTSIDE RECORDS SUMMARY | 2025-01-14 14:45 | XMS_ITS | Encounter Summary ---
Author Organization [facility] Address [address] [place] [address] Phone Care Team Providers Care Advertising Sales Representative Name Role Phone Simón Davidson DO Primary Care Provider + Encounter Details Date Type Department Care Team (Late st Contact Info) Description 06/21/2022 Orders Only [facility] LEGACY [address] [place] [address] Conversion, Onbase Social History Tobacco Use Types [...] on filedocumented in this encounter Care Teams Advertising Sales Representative Relationship Specialty Start Date End Date Simón Davidson DO [address] [facility] [place] [address] PCP - General 10/21/17 documented as of this encounter
--- OUTSIDE RECORDS SUMMARY | 2025-01-14 14:45 | XMS_ITS | Encounter Summary ---
Author Organization [facility] Address [address] [place] [address] Care Team Providers Care Research Specialist Name Role Phone Diony Sharma MD Primary Care Provider [phone] Kenyetta Dove MD Unavailable [phone] Simón Ozuna MD Unavailable [phone] Amanda Montiel MD Unavailable [phone] Krish Hodge MD Unavailable [phone] Beny Hoskins MD Unavailable [phone] Encounter Details Date Type Department Care Team (Late st Contact Info) Description 02/22/2024 Orders Only [facility] [address] [place] [address] Kenyetta Dove MD [address] [place] [address] Social History Tobacco Use [...] [address] [place] [address] 02/12/2025 11:10 AM EDT Office Visit SAMANTHA [facility] Endocrinology [address] [place] [address] Kenyetta Dove MD [address] [place] [address] documented as of this encounter Procedures Procedure [...] on filedocumented in this encounter Care Teams Research Specialist Relationship Specialty Start Date End Date Diony Sharma MD [address] [place] [address] PCP - General Internal Medicine 01/24/24 Kenyetta Dove MD [address] [place] [address] Referring Physician Endocrinology 08/01/24 Simón Ozuna MD [address] [place] [address] Referring Physician Urology 08/01/24 Amanda Montiel MD [address] [place] [address] Obstetrics and Gynecology 08/01/24 Krish Hodge MD [address] [place] [id number] Referring Physician Ophthalmology 08/01/24 Beny Hoskins MD [address] [place] [address] [address] [place] [address] Referring Physician Gastroenterology 08/01/24 [facility] Mental Health 08/01/24 documented as of this encounter
--- OUTSIDE RECORDS SUMMARY | 2025-01-14 14:45 | XMS_ITS | Encounter Summary ---
Author Organization [facility] Address [address] [place] [address] Care Team Providers Care Building And Construction Manager Name Role Phone Diony Sharma MD Primary Care Provider [phone] Kenyetta Dove MD Unavailable [phone] Simón Ozuna MD Unavailable [phone] Amanda Montiel MD Unavailable [phone] Krish Hodge MD Unavailable [phone] Beny Hoskins MD Unavailable [phone] Encounter Details Date Type Department Care Team (Late st Contact Info) Description 12/07/2024 External Result Encounter [facility] External Department Unsolicited Omid Stevens, BURSAR [address] [place] [address] Social History Tobacco Use Types Packs/Day Years [...] [place] [facility] [address] [place] [address] 02/12/2025 11:10 AM EDT Office Visit [facility]ocr[facility]ology [address] [place] [address] Kenyetta Dove MD [address] [place] [address] documented as of this encounter Procedures Procedure [...] Thacker M.D. 12/07/2024 11:37 AM Dictation Location: [place] [address] Transcribed By: [facility] 12/07/24 1137 Dictated By: Rizwana Thacker MD 12/07/24 1137 Signed By: <Electronically signed by MD Rizwana Thacker in OV> 12/07/24 1137 Narrative 12/07/2024 11:40 AM EDT [facility] Main [address] [address] XRay Report Signed Patient: Lupe Pickard MR#: [id number] : 1975 Acct:[id number] Age/Sex: 49 / F ADM Date: 12/07/24 Loc: XD Room: Type: [facility] Attending Dr: Omid Stevens RN, MSN, ANP-C [...] 2V* Procedure Note Radiology, Radiologist, - 12/07/2024 [facility] Main [place] [address] [place] [address] XRay Report Signed Patient: Lupe Pickard MMR#: [id number] : 1975Acct:[id number] Age/Sex: 49 / FADM Date: 12/07/24 Loc: XD Room:Type: [facility] Attending Dr: Omid Stevens RN, MSN, ANP-C [...] Thacker M.D. 12/07/2024 11:37 AM Dictation Location: [place] [address] Transcribed By: [facility] 12/07/24 1137 Dictated By: Rizwana Thacker MD 12/07/24 1137 Signed By: <Electronically signed by MD Rizwana Thacker in OV> 12/07/24 1137 us Omid Stevens BURSAR IMG XR PROCEDURES Final Resu lt documented in this encounter Visit Diagnoses Not on filedocumented in this encounter Care Teams Building And Construction Manager Relationship Specialty Start Date End Date Diony Sharma MD [address] [place] [address] PCP - General Internal Medicine 01/24/24 Kenyetta Dove MD [address] [place] [address] Referring Physician Endocrinology 08/01/24 Simón Ozuna MD [address] [place] [address] Referring Physician Urology 08/01/24 Amanda Montiel MD [address] [place] [address] Obstetrics and Gynecology 08/01/24 Krish Hodge MD [address] [place] [address] Referring Physician Ophthalmology 08/01/24 Beny Hoskins MD [address] [place] [address] [address] [place] [address] Referring Physician Gastroenterology 08/01/24 [facility] Mental Health 08/01/24 documented as of this encounter
--- OUTSIDE RECORDS SUMMARY | 2025-01-14 14:45 | XMS_ITS | Encounter Summary ---
Author Organization [facility] Address [address] [place] [address] Care Team Providers Care Repair Specialist Name Role Phone Simón Davidson MD Primary Care Provider [phone] Diony Sharma MD Primary Care Provider [phone] Kenyetta Dove MD Unavailable [phone] Simón Ozuna MD Unavailable [phone] Amanda Montiel MD Unavailable [phone] Krish Hodge MD Unavailable Beny Hoskins MD Unavailable [phone] Encounter Details Date Type Department Care Team (Late st Contact Info) Description 12/29/2022 External Result Encounter [facility] External Department Unsolicited Amanda Montiel MD [address] [place] [address] Social History Tobacco Use Types Packs/Day Years [...] [address] [place] [address] 02/12/2025 11:10 AM EDT Office Visit [facility] [address] [place] [address] Kenyetta Dove MD [address] [place] [address] documented as of this encounter Procedures Procedure [...] Neff Jr., D.O.12/29/2022 2:57 PM Dictation Location: [facility] Transcribed By: [facility] 12/29/221456 Dictated By: Bob Neff Jr, DO 12/29/22 1457 Signed By: <Electronically signed by Bob Neff Jr, DO in OV> 12/29/22 1457 Narrative 12/30/2022 7:28 AM EDT [address] [address] Mammography Report Signed Patient: Lupe Pickard MR#: [id number] : 1975 Acct:[id number] Age/Sex: 47 / F ADM Date: 12/29/22 Loc: [place] Room: Type: [facility] Attending Dr: Amanda Montiel MD Copies [...] w/CAD Procedure Note Radiology, Radiologist, - 12/30/2022 [facility] Main [place] [address] [place] [address] Mammography Report Signed Patient: Lupe Pickard MMR#: [id number] : 1975Acct:[id number] Age/Sex: 47 / FADM Date: 12/29/22 Loc: [place] Room:Type: [facility] Attending Dr: Amanda Montiel MD Copies [...] Neff Jr., D.OJaycee12/29/2022 2:57 PM Dictation Location: [facility] Transcribed By: [facility] 12/29/22 1457 Dictated By: Bob Neff Jr, DO 12/29/22 1457 Signed By: <Electronically signed by Bob Neff Jr, DO inOV> 12/29/22 1457 us Amanda Montiel MD IMG BI PROCEDURES Final Result documented in this encounter Visit Diagnoses Not on filedocumented in this encounter Care Teams Repair Specialist Relationship Specialty Start Date End Date Simón Davidson MD [address] [place] [address] PCP - General Armored Machine Operator 01/16/24 01/23/24 Diony Sharma MD [address] [place] [id number] PCP - General Internal Medicine 01/24/24 Kenyetta Dove MD [address] [place] [address] Referring Physician Endocrinology 08/01/24 Simón Ozuna MD [address] [facility] [place] [address] Referring Physician Urology 08/01/24 Amanda Montiel MD [address] [place] [address] Obstetrics and Gynecology 08/01/24 Krish Hodge MD [address] [place] [address] Referring Physician Ophthalmology 08/01/24 Beny Hoskins MD [address] [place] [address] Referring Physician Gastroenterology 08/01/24 [facility] 08/01/24 documented as of this encounter
--- OUTSIDE RECORDS SUMMARY | 2025-01-14 14:46 | XMS_ITS | Encounter Summary ---
Author Organization [facility] Address [address] [place] [address] Care Team Providers Care Curriculum Writer Name Role Phone Diony Sharma MD Primary Care Provider [phone] Kenyetta Dove MD Unavailable [phone] Simón Ozuna MD Unavailable [phone] Amanda Montiel MD Unavailable [phone] Krish Hodge MD Unavailable [phone] Beny Hoskins MD Unavailable [phone] Encounter Details Date Type Department Care Team (Latest Contact Info) Description 01/11/2025 Travel Social History Tobacco Use Types Packs/Day [...] Medicine [address] [place] [address] 02/12/2025 11:10 AM EDT Office Visit [facility] [place] [facility] [address] [place] [address] Kenyetta Dove MD [address] [place] [address] documented as of this encounter Visit Diagnoses Not on filedocumented in this encounter Care Teams Curriculum Writer Relationship Specialty Start Date End Date Diony Sharma MD [address] [place] [address] PCP - General Internal Medicine 01/24/24 Kenyetta Dove MD [address] [place] [address] Referring Physician Endocrinology 08/01/24 Simón Ozuna MD [address] [place] [address] Referring Physician Urology 08/01/24 Amanda Montiel MD [address] [place] [address] Obstetrics and Gynecology 08/01/24 Krish Hodge MD [address] [place] [address] Referring Physician Ophthalmology 08/01/24 Beny Hoskins MD [address] [place] [address] [address] [place] [address] Referring Physician Gastroenterology 08/01/24 [facility] 08/01/24 documented as of this encounter
--- OUTSIDE RECORDS SUMMARY | 2025-01-14 14:46 | XMS_ITS | Encounter Summary ---
Author Organization [facility] Address [address] [place] [address] Phone Care Team Providers Care Bell Tier Name Role Phone Simón Davidson DO Primary Care Provider + Encounter Details Date Type Department Care Team (Late st Contact Info) Description 03/17/2023 Scanned Document [facility] [address] [place] [id number] Scanning, Generic Provider Social History Tobacco Use [...] on filedocumented in this encounter Care Teams Bell Tier Relationship Specialty Start Date End Date Simón Davidson DO [address] [facility] [place] [address] PCP - General 10/21/17 documented as of this encounter
--- OUTSIDE RECORDS SUMMARY | 2025-01-14 14:46 | XMS_ITS | Encounter Summary ---
Author Organization [facility] Address [facility] [place] [address] Care Team Providers Care Reverse Unit Operator Fisherman Name Role Phone Simón Davidson DO Unavailable [phone] Source Comments In the event this information is protected by the Federal Confidentiality of Alcohol and Drug AbusePatient Records regulations: The Federal rules restrict any use of the information to criminally investigate or prosecute any alcohol or drug abuse patient.[facility] Encounter Details Date Type Department Care Team (Late st Contact Info) Description 06/28/2023 Get Medical Advice Rheumatology [address] [facility] [place] [address] Stephie Brambila MD [address] [place] [address] Follow up for testing Social [...] risk 4 05/17/2023 Data from: https://www.neighborhoodatlas.medicine.[facility].edu/. Last address used for calculation [address] [...] on filedocumented in this encounter Care Teams Reverse Unit Operator Fisherman Relationship Specialty Start Date End Date Simón Davidson DO Referring Family Medicine 11/22/22 documented as of this encounter
--- OUTSIDE RECORDS SUMMARY | 2025-01-14 14:46 | XMS_ITS | Encounter Summary ---
Author Organization [facility] Address [address] [place] [address] Phone Care Team Providers Care Special Forces Officer Name Role Phone Simón Davidson DO Primary Care Provider + Encounter Details Date Type Department Care Team (Late st Contact Info) Description 12/20/2022 Orders Only [facility] [address] [place] [address] Conversion, Onbase Social History Tobacco Use Types [...] on filedocumented in this encounter Care Teams Special Forces Officer Relationship Specialty Start Date End Date Simón Davidson DO [address] [facility] [place] [address] PCP - General 10/21/17 documented as of this encounter
--- OUTSIDE RECORDS SUMMARY | 2025-01-14 14:46 | XMS_ITS | Clinical Summary ---
Author Organization [facility] Address [address] [place] [address] Care Team Providers Care Cook Helper Vegetable Name Role Phone Simón Davidson DO Unavailable [phone] Allergies No known active allergies Medications Glucosamine-Cho [...] is lower risk 4 05/17/2023 Data from: https://www.neighborhoodatlas.medicine.[facility].edu/. Last address used for calculation [address] 05/17/2023 Comments No Sex and [...] METABOLIC PANEL (05/19/2023 8:07 AM EST) Pathologist [facility] Protein, Total 6.7 6.3 - 8.0 g/dL 05/19/2023 8:43 AM EST [facility] Albumin 4.1 3.9 - 4.9 g/dL 05/19/2023 8:43 AM EST [facility] Calcium, Total 9.2 8.5 - 10.2 mg/dL 05/19/2023 8:43 AM EST [facility] Bilirubin, Total 0.2 0.2 - 1.3 mg/dL 05/19/2023 8:43 AM EST [facility] Alkaline Phosphatase 62 34 - 123 U/L 05/19/2023 8:43 AM EST [facility] AST 10(L) 13 - 35 U/L 05/19/2023 8:43 AM EST [facility] ALT 19 7 - 38 U/L 05/19/2023 8:43 AM EST [facility] Glucose 105(H) 74 - 99 mg/dL 05/19/2023 8:43 AM EST [facility] Comment: The [place] Diabetes Association (ADA) provides guidance for cutoff [...] Standards of Medical Care in Diabetes 2016, [place] Diabetes Association. Diabetes Care. 2016.39(Suppl 1). BUN 17 7 - 21 mg/dL 05/19/2023 8:43 AM EST [facility] Creatinine 0.65 0.58 - 0.96 mg/dL 05/19/2023 8:43 AM [facility] Sodium 142 136 - 144 mmol/L 05/19/2023 8:43 AM [facility] Potassium 4.3 3.7 - 5.1 mmol/L 05/19/2023 8:43 AM [facility] Chloride 106(H) 97 - 105 mmol/L 05/19/2023 8:43 AM [facility] CO2 27 22 - 30 mmol/L 05/19/2023 8:43 AM [facility] Anion Gap 9 9 - 18 mmol/L 05/19/2023 8:43 AM [facility] Estimated Glomerular Filtration Rate 110 >=60 mL/min/1. 73m 05/19/2023 8:43 AM [facility] Comment:Estimated Glomerular Filtration Rate (eGFR) [...] Result [facility] [address] [place] [address] from Last 3 Months or Most Recently Relevant to Health Maintenance Insurance MEDICARE MEDICAID [place] Care Teams Cook Helper Vegetable Relationship Specialty Start Date End Date Simón Davidson DO Referring Family Medicine 11/22/22
--- OUTSIDE RECORDS SUMMARY | 2025-01-14 14:46 | XMS_ITS | Encounter Summary ---
Author Organization [facility] Address [facility] [place] [address] Care Team Providers Care Sliver Lap Tender Name Role Phone Simón Davidson DO Unavailable [phone] Source Comments In the event this information is protected by the Federal Confidentiality of Alcohol and Drug AbusePatient Records regulations: The Federal rules restrict any use of the information to criminally investigate or prosecute any alcohol or drug abuse patient.[facility] Encounter Details Date Type Department Care Team (Late st Contact Info) Description 07/07/2023 Get Medical Advice Rheumatology [address] [facility] [place] [address] Stephie Brambila MD [address] [place] [address] Waiting for response Social History [...] from: https://www.neighborhoodatlas.medicine.[facility].edu/. Last address used for calculation [address] [...] on filedocumented in this encounter Care Teams Sliver Lap Tender Relationship Specialty Start Date End Date Simón Davidson DO Referring Family Medicine 11/22/22 documented as of this encounter
--- OUTSIDE RECORDS SUMMARY | 2025-01-14 14:46 | XMS_ITS | Clinical Summary ---
Author Organization [facility] Address [address] [place] [address] Phone Care Team Providers Care Cistern Room Operator Name Role Phone StuartSimón Nils Primary Care [...] PART A AND B MEDICAID Care Teams Cistern Room Operator Relationship Specialty Start Date End Date Simón Davidson DO [address] [place] [phone] PCP - General 10/21/17
--- NOTE | 2025-01-14 15:29 | PM.CN ---
Consult Note: HPI Data of Consult Patient: known to practice within the last 3 years Consult date: 01/14/25 Requesting Physician: Willian Jensen MD Primary Care Provider: Non-Staff Physician, Consult Narrative Reason for consult: right shoulder pain Narrative: 49yof who presents for in office injection. notes persistence of right shoulder pain. xr of right shoulder indicative of osteoarthritic changes. cc:: CC: Wlilian Jensen MD Review of Systems ROS Status of ROS 10 or more systems reviewed and unremarkable except as noted in history and below [facility] Medical History Lumbago ?M54.50 - Low back pain, unspecified (ICD-10) Thoracic spondylosis ?M47.814 - Spondylosis without myelopathy or radiculopathy, thoracic region (ICD-10) Muscle spasm ?M62.838 - Other muscle spasm (ICD-10) Thoracic neuritis ?M54.14 - Radiculopathy, thoracic region (ICD-10) Chronic pain syndrome ?G89.4 - Chronic pain syndrome (ICD-10) Lumbar spondylosis ?M47.816 - Spondylosis without myelopathy or radiculopathy, lumbar region (ICD-10) Greater trochanteric bursitis of right hip ?M70.61 - Trochanteric bursitis, right hip (ICD-10) Thoracic stenosis ?M48.04 - Spinal stenosis, thoracic region (ICD-10) Chronic bilateral low back pain ?M54.50 - Low back pain, unspecified (ICD-10) ?G89.29 - Other chronic pain (ICD-10) Sacroiliitis ?M46.1 - Sacroiliitis, not elsewhere classified (ICD-10) Sacroiliac joint dysfunction ?M53.3 - Sacrococcygeal disorders, not elsewhere classified (ICD-10) Lumbar stenosis with neurogenic claudication ?M48.062 - Spinal stenosis, lumbar region with neurogenic claudication (ICD-10) Neck pain ?M54.2 - Cervicalgia (ICD-10) Shoulder pain ?M25.519 - Pain in unspecified shoulder (ICD-10) Arthritis ?M19.90 - Unspecified osteoarthritis, unspecified site (ICD-10) Back pain ?M54.9 - Dorsalgia, unspecified (ICD-10) Dyspnea on exertion ?R06.09 - Other forms of dyspnea (ICD-10) Hypothyroidism ?E03.9 - Hypothyroidism, unspecified (ICD-10) Thyroid disease ?E07.9 - Disorder of thyroid, unspecified (ICD-10) Pseudotumor cerebri ?G93.2 - Benign intracranial hypertension (ICD-10) PTSD (post-traumatic stress disorder) ?F43.10 - Post-traumatic stress disorder, unspecified (ICD-10) Chronic fatigue syndrome ?G93.32 - Myalgic encephalomyelitis/chronic fatigue syndrome (ICD-10) Depression ?F32.A - Depression, unspecified (ICD-10) Anxiety ?F41.9 - Anxiety disorder, unspecified (ICD-10) HTN (hypertension) ?I10 - Essential (primary) hypertension (ICD-10) Palpitations ?R00.2 - Palpitations (ICD-10) Osteoarthritis ?M19.90 - Unspecified osteoarthritis, unspecified site (ICD-10) Fibromyalgia ?M79.7 - Fibromyalgia (ICD-10) IBS (irritable bowel syndrome) ?K58.9 - Irritable bowel syndrome without diarrhea (ICD-10) Constipation ?K59.00 - Constipation, unspecified (ICD-10) Surgical History S/P insertion of spinal cord stimulator (07/23/24) ?Z96.89 - Presence of other specified functional implants (ICD-10) S/P epidural steroid injection ?Z92.241 - Personal history of systemic steroid therapy (ICD-10) History of radiofrequency ablation (RFA) of nerve of lumbar spine ?Z98.890 - Other specified postprocedural states (ICD-10) History of colonoscopy ?Z98.890 - Other specified postprocedural states (ICD-10) History of breast biopsy ?Z98.890 - Other specified postprocedural states (ICD-10) H/O section ?Z98.891 - History of uterine scar from previous surgery (ICD-10) History of hysterectomy ?Z90.710 - Acquired absence of both cervix and uterus (ICD-10) History of thyroidectomy ?E89.0 - Postprocedural hypothyroidism (ICD-10) Family History Other Family history of cancer Family history of diabetes mellitus Family history of heart disease Family history of hypertension Family history of myocardial infarction Family history of stroke Kidney disease Social History Within the past year, how often did you have a drink containing alcohol: never Score interpretation: A score less than 3 is consistent with normal alcohol consumption. Smoking status: Former smoker Do you use any of these nicotine containing products: vaping products Non-prescribed substance use: denies use Highest level of school completed/degree received: high school graduate Meds Home Medications and Allergies Home Medications ?Medication ?Instructions ?Recorded ?Confirmed ?Type cholecalciferol (vitamin D3) 50 50 mcg PO DAILY 12/30/22 12/17/24 History mcg (2,000 unit) capsule (Vitamin D3) liothyronine 5 mcg tablet 5 mcg PO DAILY 12/30/22 12/17/24 History lubiprostone 24 mcg capsule 24 mcg PO DAILY PRN IBS -C 12/30/22 12/17/24 History magnesium oxide 400 mg (241.3 mg 400 mg PO DAILY 12/30/22 12/17/24 History magnesium) tablet melatonin 10 mg tablet 10 mg PO DAILY 12/30/22 12/17/24 History multivitamin (Daily Multi-Vitamin 1 tab PO DAILY 12/30/22 12/17/24 History tablet) Lactobacillus acidophilus 10 100 mmu cells PO DAILY 08/03/23 12/17/24 History billion cell capsule (Probiotic) escitalopram oxalate 20 mg tablet 20 mg PO DAILY 08/03/23 12/17/24 History (Lexapro) ferrous sulfate 325 mg (65 mg 325 mg PO DAILY 08/03/23 12/17/24 History iron) tablet (Feosol) propranolol 20 mg tablet 20 mg PO BID 08/03/23 12/17/24 History calcium 500 mg (as 1 tab PO DAILY 07/13/24 12/17/24 History carbonate)-vitamin D3 5 mcg (200 unit) tablet (Oyster Shell Calcium-Vitamin D3) collagen capsule PO 07/13/24 History vit B complex-folic acid 400 1 cap PO DAILY 07/13/24 12/17/24 History mcg-choline 20 mg-inositol 50 mg capsule (Super B-50 Complex) cephalexin 500 mg capsule 500 mg PO Q8H celulitis 11/27/24 11/27/24 History levothyroxine 125 mcg tablet 125 mcg PO DAILY 11/27/24 12/17/24 History potassium chloride 10 mEq 10 meq PO BID 11/27/24 12/17/24 History tablet,extended release(part/cryst) cephalexin 500 mg capsule 500 mg PO TID 7 days #21 caps 12/17/24 Rx hydrocodone 5 mg-acetaminophen 325 1 tab PO QID PRN pain #12 tabs 12/17/24 Rx mg tablet losartan 100 tab 12/17/24 History mg-hydrochlorothiazide 12.5 mg tablet Allergies Allergy/AdvReac Type Severity Reaction Status Date / Time No Known Drug Allergies Allergy Verified 11/27/24 14:30 Exam Narrative Exam Narrative: Psych-alert and oriented x 3.? Attentive and appropriate, constitutionally normal, displays normal mood and affect per situation.? There are no obvious deficits in memory, reasoning, or intellect.? Skin-no obvious rashes, bruising, or erythema noted to the patient's area of pain. Extremities-upper extremities are warm with minimal edema and palpable pulses. Shoulder - tender to palpation in right shoulder. Pain with abduction, external rotation of right shoulder. Cervical- tenderness to palpation noted in the cervical spine and paraspinal musculature.? Pain is elicited with extension, and lateral rotation of the cervical spine.? Range of motion is slightly diminished due to pain. Coordination remains intact.? Gait remains non-antalgic. Assessment and Plan Assessment and Plan (1) Right shoulder pain: Qualifiers: Chronicity: chronic Qualified Code(s): M25.511 - Pain in right shoulder; G89.29 - Other chronic pain Plan 49yof who presents for in office injection. continues to have right shoulder pain, will proceed with injection. procedure: right shoulder injection medications: bupivacaine 0.25% 4cc, depomedrol 40mg I explained the details of the procedure to the patient including the risks, benefits, and alternatives.? We had an informed discussion.? The patient verbalized understanding and signed the consent form.? All questions were answered appropriately.? A time-out was performed.? After obtaining a comfortable seated position, the skin overlying the right shoulder was prepped with alcohol 3 times.? The sulcus between the head of the humerus and the acromion was identified.? The needle was inserted in a sterile manner 2 cm inferior and medial to the posterolateral corner of the acromion and was directed anteriorly toward the coracoid process. The contents of the syringe were gently injected without any resistance into the joint space after negative aspiration for blood or other bodily fluids.? The needle was removed and pressure was applied at the injection site to decrease the incidence of ecchymosis and hematoma formation.? A sterile bandage was applied.
--- OUTSIDE RECORDS SUMMARY | 2025-01-14 16:22 | XMS_ITS | CCD ---
Author Organization [facility] Care Team Providers Care Website Project Manager Name Role Phone Donya Billings Primary Care Provider [phone] Oscar Reed Unavailable DO Donya Billings Primary Care Provider MARCELLUS Marr Attending Provider MD Phillip Benjamin Attending Provider DO Steve Coronel Emergency Provider Oliver Mario Unavailable Donya Bililngs Unavailable Unavailable Unavailable Unavailable Unavailable DO Donya [...] DR DONYA Ashraf Primary Care Unavailable ANNALEE ., DR ZHANE Ashraf Consulting Unavailable HERIBERTO GONSALES Consulting Unavailable ANNALEE ., DR ZHANE Ashraf Admitting Unavailable ANNALEE ., DR ZHANE Ashraf Attending Unavailable AWA, DR DONYA Ashraf Primary Care Unavailable BHAVNA COPELAND Consulting Unavailable MANTILLA ., DR ZHANE Ashraf Admitting Unavailable MANTILLA ., DR ZHANE Ashraf Attending Unavailable AWA, DR DOYNA Ashraf Primary Care Unavailable MANTILLA ., DR ZHANE Ashraf Consulting Unavailable TRERISHEYLA Jc Consulting Unavailable MANTILLA ., DR ZHANE [...] Dr. Donya Wray Primary [facility] Gaurav Benjamin, Dr. Koehler Attending Unavaila ble Awa, Dr. Donya Wray [facility] Gaurav Benjamin, Dr. Koehler Attending Unavaila ble Lavonne, Dr. Koehler Attending Unavaila ble Awa, Dr. Donya Wray [facility] Gaurav Benjamin, Dr. Koehler Referring Unavaila ble Lavonne, Dr. Koehler Referring Unavaila ble Awa, Dr. Donya Wray [facility] Gaurav Benjamin, Dr. Koehler Attending Unavaila ble Awa, Dr. Donya Wray [facility] Gaurav Benjamin, Dr. Koehler Referring Unavaila ble Awa, Dr. Donya Wray [facility] Gaurav Benjamin, Dr. Koehler Attending Unavaila ble Awa, Dr. Donya Wray [facility] Gaurav Benjamin, Dr. Koehler Attending Unavaila ble Lavonne, Dr. Koehler Referring Unavaila ble Awa, DO Donya Ashraf Primary Care Provider DO Yogi Michaels Emergency Provider Gaurav simeon NO FAMILY, PHYSICIAN Primary Care Provider Unava BHAVIN Dsouza Emergency Provider MD Amanda Montiel Attending Provider DO Melissa Singh II Primary Care Provider DO Mariya Kumari Emergency Provider MD Franklyn Herman Attending Provider MD Phillip Benjamin Other Provider [phone] Beny Hoskins Unavailable [phone] DO Yogi Michaels Emergency Provider Unavai MD Kenyetta Tong Attending Provider DO Melissa Singh II Other Provider MARCELLUS Mcintosh Attending Provider NO FAMILY, PHYSICIAN Primary Care Provider Unava MD Beny Cheng Attending Provider MAXIMILIANO Aguirre Other Provider [phone] Awa BARAKAT Donya Andriy Unavailable [phone] [facility] Referring Unavaila ble [place] Attending Unavaila ble [place] Referring Unavaila ble [facility] Attending Unavaila ble James, Roula Unavailable DO Melissa Singh II Primary Care Provider DO Jorge Jarrett Emergency Provider DO Melissa Singh II Primary Care Provider [phone] DO Jorge Jarrett Emergency Provider DO Melissa Singh II Attending Provider MARCELLUS Dominguez Attending Provider MAXIMILIANO Lozoya Emergency Provider DO Melissa Singh II Primary Care Provider Samantha II, [facility] Primary Care Provider Self, Referral Attending Provider Unavailable MD Melissa Coon Primary Care Provider [phone] Isabela EMERGENCY MEDICINE PHYSICIAN ASSISTANT-C Dalia Attending Provider [phone] MD Kenyetta Dove Attending Provider [phone] Melissa Coon MD Primary Care Provider Shaggy PELAYO, Melissa Primary Care Provider Camila PELAYO, Andnato Attending Provider Shaggy PELAYO, Melissa Primary Care Provider Camila PELAYO, Andri Attending Provider Melissa Coon MD Attending Provider [phone] Chaz Carrillo DO Attending Provider Derrell PELAYO, Kenyetta Attending Provider Derrell PELAYO, Kenyetta F Unavailable [phone] Laith PELAYO, Donya P Unavailable Dinesh PELAYO, Amanda P Unavailable Ayesha PELAYO, Krish Bellamy Unavailable Gato PELAYO, Beny Unavailable Shaggy PELAYO, Melissa Primary Care Provider Chaz Carrillo DO Attending Provider Shon DELCID, Tanner Pimentel Attending Provider Derrell PELAYO, Kenyetta Referring Provider [phone] Shaggy PELAYO, Melissa Primary Care Provider Isabela EMERGENCY MEDICINE PHYSICIAN ASSISTANT-C, Dalia Attending Provider Shaggy PELAYO, Melissa Primary Care Provider [phone] Kenyetta Dove MD Attending Provider Robbie Dale MD Attending Provider [phone] Shaggy PELAYO, Melissa Primary Care Provider Rodney CHRISTIE, Omid Rodriguez Attending Provider [phone] Risalitamara EMERGENCY MEDICINE PHYSICIAN ASSISTANT-C, Dalia Referring Provider Robbie Dale MD Other Provider [phone] Yogi Redding MD Attending Provider Devora VIERA, Javad Emergency Provider [phone] Shaggy PELAYO, Melissa Primary Care Provider Tanner Menendez PA-C Attending Provider Demar PELAYO, Melissa Pimentel Attending Provider Hill, Melissa Primary Care Unavailable Devora, Javad Attending Unavailable Devora, Javad Admitting Unavailable Hill, Melissa Primary Care Unavailable Risaliti, Dalia Attending Unavailable Risaliti, Dalia Admitting Unavailable Hill, Melissa Attending Unavailable Hill, Melissa Admitting Unavailable Hill, Melissa Primary Care Unavailable Hill, Melissa Primary Care Unavailable Omid Quan Attending Unavailable Omid Quan Admitting Unavailable Hill, Melissa Primary Care Unavailable Robbie Dale Attending Unavailable Risaliti, Dalia Referring Unavailable Robbie Dale Admitting Unavailable Self, Referral Attending Unavailable Anastaisamley II, Melissa J Primary Care Unavailable Self, Referral Admitting Unavailable Hill, Melissa Primary Care Unavailable Risaliti, Dalia Attending Unavailable Risaliti, Dalia Admitting Unavailable Hill, Melissa Primary Care Unavailable SandgapMelissa edwards II M Admitting Unavailabl e Melissa Benz II Attending Unavailabl e Tanner Menendez Admitting Unavailable Tanner Menendez Attending Unavailable Hill, Melissa Primary Care Unavailable Chaz Carrillo Admitting Unavailable Hill, Melissa Primary Care Unavailable Chaz Carrillo Attending Unavailable Hill, Melissa Primary Care Unavailable Derrell, Ahmad Attending Unavailable Derrell, Ahmad Admitting Unavailable Giedraitis, Andrius Attending Unavailable Giedraitis, Andrius Admitting Unavailable Hill, Melissa Primary Care Unavailable Derrell, Ahmad Admitting Unavailable Hill, Melissa Primary Care Unavailable Derrell, Ahmad Attending Unavailable Derrell, Ahmad Referring Unavailable Derrell, Ahmad Admitting Unavailable Derrell, Ahmad Attending Unavailable Hill, Melissa Primary Care Unavailable Tanner Menendez Attending Unavailable Workjonathan, Summer M Admitting Unavailable Hill, Melissa Primary Care Unavailable Risaliti, Dalia Attending Unavailable Risaliti, Dalia Admitting Unavailable Melissa Coon Primary Care Unavailable Derrell, Ahmad Admitting Unavailable Derrell, Ahmad Attending Unavailable Melissa Coon Primary Care Unavailable Donya OZUNA Attending Unavailable Santos Johnston Admitting Unavailable Santos Johnston Attending Unavailable NONE, XXXX Referring Unavailable Eldon Yates Attending Unavailable NONE, XXXX Referring Unavailable Eldon Yates Admitting Unavailable Giedraitis , Andrius Lou Attending Unavailable Giedraitis , Andrius Lou Attending Unavailable Giedraitis , Andrius Carmine Attending Unavailable Giedraitis , Andrius Lou Attending Unavailable Giedraitis , Andrius Lou Attending Unavailable Giedraitis , Andrius Lou Attending Unavailable Giedraitis , Andrius Carmine Attending Unavailable Giedraitis , Andrius Lou Attending Unavailable MELISSA COON Attending Unavailable DERRELL, AHMAD F Attending Unavailable DERRELL, AHMAD F Referring Unavailable TANNER MENENDEZ Attending Unavailable RISALITAMARA, DALIA R Attending Unavailable MELISSA COON Referring Unavailable SHAGGY, MELISSA Rodriguez Attending Unavailable TANNER MENENDEZ Referring Unavailable MELISSA COON Referring Unavailable MELISSA COON Referring Unavailable RISALITAMARA, DALIA R Attending Unavailable MELISSA COON Attending Unavailable DERRELL, JESSEMAD F Attending Unavailable DERRELL, AHMAD F Referring Unavailable MELISSA COON Referring Unavailable Allergies Allergy Classification Reported Allergen(s) Allergy Type Date of Onset Reaction(s) Facility (1 source) Latex; Translations: [Latex] Propensity to adverse reactions (disorder) 7 [facility] Repository (1 source) venlafaxine; Translations: [Effexor] Drug Allergy [facility] Repository Medications Current Medications Medication Drug [...] oral tablet (20 sources) Opioid Agonist Start: 01-11-2025 End: 01-18-2025 take 1-2 tablets by mouth every six hours for pain HYDROcodone-acetaminophen ([place]) 5-325 MG tablet Indications: Acute pain of left knee Take 1-2 tablets by mouth every 6 (six) hours if needed for severe pain for up to 7 days 42 tablet 01/11/2025 01/18/2025 Active Start: 03-29-2023 End: 05-14-2024 take 1 tablet by mouth twice daily as needed for pain Hydrocodone-Acetaminophen 5-325 mg Table t Discontinued 1 TAB PO Twice daily as needed for Pain March 29, 2023 12:00am May 14, 2024 3:08pm [place] Active Comment on above: TAKE 1 TABLET BY CHRISTOPHER TH 2 TIMES A DAY NEEDED FOR PAIN amoxicillin 875 mg oral tablet (1 source) Penicillin-class Antibacterial Start: take 1 tablet by mouth every twelve hours Amoxicillin 875 MG 1 tablet Orally Twice a day for 10 days Jun, Active Aspir-81 (4 sources) Aspir-81 Active B Yhggsyo-Svudbd-JJ (Super Quints B-50) tablet (20 sources) B Complex-Biotin -FA (Super Quints B-50) tablet Take by mouth [...] the morning cholecalciferol (Vitamin D-3) 50 MCG (1999 UT) capsule Indications: Primary osteoarthritis involving multiple joints Take 1 capsule (50 mcg) by mouth in the morning. 30 capsule 11 09/24/2024 Active Start: 02-19-2023 take 1 capsule by mo uth in the morning cholecalciferol (Vitamin D-3) 50 MCG (1999 UT) capsule Take 1 capsule by mouth in the morning. 02/19/2023 Active Start: 02-19-2023 take 1 capsule by mouth once C holecalciferol, Vitamin D3, 50 mcg (2,000 unit) cap Take 1 capsule by mouth every afternoon. 0 02/19/2023 Active Start: 08-13-2022 Cholecalcifero l (vitamin D3) 50 MCG (1999 UT) CAPS capsule Take by mouth daily. 0 08/13/2022 Active Start: 07-18-2018 take 1 capsule by mo uth every week take 1 capsule by mo uth once daily Vitamin D3 1.25 MG (85883 UT) Oral Capsule TAKE 1 CAPSULE Daily [...] 01/18/2024 Active furosemide 40 mg oral tablet (20 sources) Loop Diuretic Start: 11-30-19 take 1 [...] / losartan potassium 100 mg oral tablet (15 sources) Thiazide Diuretic, Angiotensin 2 Receptor Shorty take 1 tablet by mouth once daily losartan-hydroCHLOROthiazide (Hyzaar) 100-12.5 MG tablet Take 1 tablet by mouth Daily Active ketoconazole 20 mg/ml medicated shampoo (6 sources) Azole Antifungal Star t: 12-29 ketoconazole (NIZOral) 2 % shampoo Apply 1 application topically 2 (two) times a week 01/18/2024 Active L.acid,gas,rg,rham-B.an i-cran (up4 [employer] Women's) (16 sources) Star t: 04-29 24 L.acid,gas,rg,rham-B.ani-cr an (up4 [employer] Women's) Active PO May 14, 2024 1:00am Complies with drug therapy Start: 05-14-2024 Start: 05-14-2024 L.acid,gas,rg ,rham-B.ani-cran (up4 [employer] Women's) Active PO May 14, 2024 1:00am Start: 05-14-2024 L.acid,gas,rg ,rham-B.ani-cran (up4 [employer] Women's) Active PO May 14, 2024 [...] mg oral tablet (20 sources) l-Triiodothyronine Start: 01-01-2025 take 1 tablet by mouth twice daily liothyronine (Cytomel) 5 MCG tablet Indications: Acquired hypothyroidism TAKE 1 TABLET BY MOUTH 2 TIMES A DAY 180 tablet 1 01/01/2025 Active Start: 05-08-2024 End: 11-04-2024 take 1 tablet by mouth once daily Start: 09-20-2022 End: 05-14-2024 take 10 mg [...] Start: 06-15-2023 take 1 capsule by mo ut twice daily at mealtime [place] 8 MCG [...] Start: 09-01-2022 take 1 capsule by mo [facility] twice daily at mealtime [place] 24 MCG 1 capsule with food and water Orally Twice a day for 30 days Aug, Active Start: 09-01-2022 take 1 capsule by mo ut twice daily at mealtime [place] 24 MCG [...] therapy Start: 07-18-2018 take 2 tablets by [facility] twice daily Start: 07-18-2018 take 2 tablets by [facility] twice daily Magnesium 200 mg Tablet Active 400 MG PO Twice daily July 18, 2018 1:00am Start: 07-18-2018 take 2 tablets by [facility] twice daily Magnesium 200 mg Tablet Active [...] sources) Start: 07-18-2018 take 1 tablet by [facility] once daily at bedtime Melatonin 10 MG [...] gel (20 sources) Nitroimidazole Antimicrobial Start: 11-30-19 25 Start: 10-09-2024 End: 10-09-2025 metroNIDAZOLE (Metrogel) 0.7 [...] Multivitamin (Multiple Vitamins) Tablet (20 sources) Start: 9 take 1 tablet by mouth once [...] PO Daily July 18, 2018 12:00am Nystatin (20 sources) Polyene Antifungal Start: 11-29-2024 Start: 11-29-2024 nystatin Activ e TOPICAL November 29, 2024 12:00am Complies with drug therapy Start: 10-16-2024 nystatin (Myco statin) ointment Indications: Cutaneous Candidiasis Apply thin film BID prn irritation 30 g 1 10/16/2024 Active polyethylene glycol 3350 62345 mg powder for oral solution (5 sources) Osmotic Laxative Start: 09-01-2022 take 17 g by mouth once daily Polyethylene Glycol 3350 17 GM/SCOOP 17gm Orally Once a day for 30 days please dispense largest quantity Aug, Active Potassium Chloride (20 sources) Start: 11-29-2024 Start: 11-29-2024 potassium chlo [...] Discontinued (Reorder) predniSONE 20 mg oral tablet (7 sources) Start: 01-02-2025 take 2 tablets by mo [facility] once daily at mealtime Start: 03-07-2024 predniSONE (De ltasone) 20 MG [...] twice daily take 1 tablet by christopher every twenty-four hours Propranolol HCl 20 MG 1 tablet Orally Once a day Active Comment on above: TAKE 1 TABLET BY CHRISTOPHER 2 TIMES A DAY NEEDED FOR ANXIETY [...] 3 mL 01/24/2024 Active Start: 01-24-2024 End: 10-07-2024 inject 0.25 mg by subcutaneous injection every [...] sleep Start: 05-25-2022 take 1 capsule by mo ut once daily at bedtime as needed for [...] on above: TAKE 1 CAPSULE BY MO UTH ONCE A DAY (AT BEDTIME) NEEDED FOR [...] Start: 05-12-2022 take 1 tablet by christopher once daily Trulance 3 MG 1 tablet [...] mouth Active Turmeric Active Vitamin B Complex (7 sources) Start: 11-29-2024 Start: 11-29-2024 vitamin B comp marcus Active PO November 29, 2024 12:00am Complies with drug therapy Completed/Discontinued Medications Medication Drug Class(es) Dates Sig (Normalized) Sig (Original) acetaminophen 325 mg / oxyCODONE hydrochloride 5 mg oral tablet (20 sources) Opioid Agonist Start: 09-20-2023 End: 12-05-2023 take 1 tablet by mouth three times daily as needed for pain Oxycodone-Acetamin ophen (Percocet) 5-325 mg tablet Discontinued 1 TAB PO Three times daily as needed for pain 7 2 September 20, 2023 December 05, 2023 11:42am [id number] 200 actuat albuterol 0.09 mg/actuat metered dose inhaler (14 sources) beta2-Adrenergic Agonist Start: 12-05-2023 End: 05-14-2024 Albuterol Sulfate 90 [...] 11, 2018 1:00am September 20, 2022 7:23pm End: 01-06-2024 take [...] mg / clavulanate 125 mg oral tablet (20 sources) Penicillin-class Antibacterial Start: 12-05-19 End: 05-14-20 [...] 11:38am Start: 09-23-2021 [facility] baclofen (LIORESAL) 10 MG tablet [...] Baclofen Active benzonatate 200 mg oral capsule (17 sources) Non-narcotic Antitussive Start: 05-14-2024 End: 11-29-2024 take 1 capsule by mouth three times daily as needed for cough Benzonatate 200 mg capsule Discontinued 200 MG PO Three times daily as needed for cough May 14, 2024 1:00am November 29, 2024 9:52am Start: 04-28-2022 take 1 capsule by mo [facility] every eight hours Benzonatate 100 MG 1 capsule as needed Orally Three times a day for 10 days Mar, Active biotin 10 mg oral capsule (20 sources) Start: 07-18-2018 End: 09-20-2022 take 1 capsule by mouth once daily Biotin 10,000 mcg Capsule Discontinued 15823 MCG PO Daily July 18, 2018 1:00am [...] 15 mg oral tablet (5 sources) End: 4 take 1 tablet by mouth in the morning, then take 1 tablet by mouth in the evening, then take 1 tablet by mouth at bedtime busPIRone (Buspar) 15 MG tablet Take 15 mg by mouth in the morning and 15 mg in the evening and 15 mg before bedtime. 01/06/2024 Discontinued take 1 tablet by christopher th every twelve hours busPIRone HCl 5 MG 1 tablet Orally Twice a day Active Calcium Carbonate (5 sources) Oscal 500/200 D- 3 TABS TAKE 1 TABLET DAILY DIRECTED. Quantity: 0 Refills: 0 Ordered: 13-Oct-2022 DO Active calcium carbonate 1250 mg / cholecalciferol 200 unt oral tablet (15 sources) Vitamin D Start: 9 End: 3 [...] unit tablet (20 sources) Start: 9 End: take 1 tablet by mouth twice daily [...] (20 sources) Central alpha-2 Adrenergic Agonist Start: End: take 1 tablet by mouth once daily [...] take 1 capsule by mouth once daily dilTIAZem HCl 24 0mg Active Comment on above: Take 1 capsule by [facility] every afternoon. doxycycline hyclate 100 mg oral capsule (20 sources) Tetracycline-class Drug Start: End: take 1 capsule by mouth twice daily at mealtime Doxycycline Hyclate 100 mg capsule Discontinued 100 MG PO Twice daily 14 May 14, 2024 1:00am November 29, 2024 9:52am with food Start: 10-16-2022 take 1 capsule by [facility] every twelve hours Doxycycline Hyclate 100 MG 1 capsule Orally Twice a day for 10 day(s) September, Not-Taking/PRN estrogens, conjugated (prison) 0.3 mg / medroxyPROGESTERone acetate 1.5 mg oral tablet (1 source) Progestin, Estrogen take 1 tablet by mouth once daily Conj Estrog-Medroxyprogest Tyrel 0.3-1.5 mg per tablet Take 1 tablet by mouth once daily. 0 Active Comment on above: Take 1 tablet by [facility] once daily. FE FUMARATE/CA CARB/VITAMIN D3 (IWZGYUP-PGCQ2-FPFZOMK FUMARATE ORAL) (1 source) FE FUMARATE/CA CARB/VITAMIN D3 (ETNAMON-WDIO4-GKMTBMW FUMARATE ORAL) Take by mouth. 0 Active Comment on above: Take by mouth. FOLIC ACID, BULK, MISC (1 source) FOLIC ACID, BULK , MISC 12 hr guaiFENesin 600 mg extended release oral tablet (20 sources) Start: 2023 take 600 mg by [...] 12:00am September 20, 2022 7:23pm lactobacillus acidophilus [id number] unt / pectin 10 mg oral capsule [...] 800 mg oral tablet (3 sources) End: 4 metaxalone (Skelaxin) 800 MG tablet Take 800 [...] 01/24/2024 Discontinued take 1 tablet by christopher th once daily Metoprolol Succinate ER 50 MG Oral Tablet Extended Release 24 Hour TAKE 1 TABLET BY MOUTH EVERY DAY Quantity: 90 Refills: 3 Ordered: 08-Dec-2022 Phillip Benjamin MD Active increase minocycline 50 mg oral capsule [...] Comment on above: Take 1 capsule by [facility] once daily. mupirocin 0.02 mg/mg topical ointment [...] 100 mg by mouth once daily. thyroid (prison) 60 mg oral tablet (1 source) thyroid, [...] sources) Anxiety; Translations: [Anxiety state, unspecified] Onset: 4 01-24-2024 Chronic Blindness and vision defects (14 [...] other respiratory manifestations] 07-22-2023 Episodic Menopausal disorders (20 sources) Menopausal syndrome; Translations: [Menopausal and female [...] hip] 03-07-2024 Episodic Other connective tissue disease (10 sources) Right rotator cuff syndrome; Translations: [Unspecified rotator cuff tear or rupture of right shoulder, not specified as traumatic] 10-03-2023 Episodic Other connective tissue disease (4 sources) Swelling of lower limb; Translations: [Other specified soft tissue disorders] 12-26-2024 Episodic Other diseases of kidney and ureters (4 sources) Cyst of kidney; Translations: [Cyst of kidney, acquired] Onset: 12-20-2024 Episodic Other eye disorders (7 sources) Hypertropia of right eye; Translations: [Hypertropia] Episodic Other eye disorders (20 sources) Pain in eye; Translations: [Ocular pain, unspecified eye] 01-24-2023 Episodic Other gastrointestinal disorders (2 sources) Irritable bowel syndrome; Translations: [Irritable bowel syndrome without diarrhea] 01-18-2014 Chronic Other gastrointestinal disorders (20 sources) Irritable bowel syndrome characterized by constipation; Translations: [Irritable bowel syndrome with constipation] Onset: 10-03-2023 Chronic Other gastrointestinal disorders (2 sources) [...] source) Constipation, unspecified Episodic Other gastrointestinal disorders (20 sources) Abdominal bloating; Translations: [Abdominal distension (gaseous)] 10-03-2023 Episodic Other inflammatory condition of skin (2 sources) Rosacea; Translations: [Rosacea, unspecified] 10-09-2024 Chronic Other liver diseases (6 sources) Large liver; Translations: [Hepatomegaly, not elsewhere classified] Onset: 5 12-20-2024 Episodic Other lower respiratory disease (20 sources) Dyspnea; Translations: [Shortness of breath] 01-24-2023 Episodic Other lower respiratory disease (4 sources) Dyspnea on exertion; Translations: [Shortness of breath] 10-09-2024 Episodic Other lower respiratory disease (6 sources) Snoring; Translations: [Snoring] 11-21-2024 Episodic Other nervous system disorders (7 sources) Benign intracranial hypertension; Translations: [Benign intracranial hypertension] Chronic Other nervous system disorders (1 source) Other chronic pain; Translations: [OTHER CHRONIC PAIN] Onset: 2 Chronic Other non-traumatic joint disorders (20 sources) Shoulder pain; Translations: [Pain in unspecified shoulder] 11-19-2019 Episodic Other non-traumatic joint disorders (20 sources) Shoulder joint pain; Translations: [Pain in right shoulder] 09-20-2023 Episodic Other non-traumatic joint disorders (4 sources) Pain in left knee; Translations: [Left knee pain] Onset: 5 01-07-2025 Episodic Other nutritional; endocrine; and metabolic disorders [...] to 44.9 in adult, unspecified obesity type (CMS/HCC)] 02-28-2024 Chronic Other nutritional; endocrine; and metabolic [...] Onset: 4 01-18-2014 Chronic Residual codes; unclassified (14 sources) Sleep apnea; Translations: [Sleep apnea, unspecified] 11-29-2024 Chronic Residual codes; unclassified (12 sources) Hypoxia; 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] 11-29-2024 Chronic Residual codes; unclassified (2 sources) Obstructive sleep apnea syndrome; Translations: [Obstructive sleep apnea (adult) (pediatric)] 12-13-2024 Chronic Residual codes; unclassified (1 source) Sleep apnea, unspecified; Translations: [Sleep apnea, unspecified] Onset: Chronic Residual codes; unclassified (20 sources) Peripheral edema; Translations: [Edema, unspecified] 11-19-2019 Episodic Residual codes; unclassified (4 sources) Edema of lower extremity; Translations: [Localized edema] 10-09-2024 Episodic Residual codes; unclassified (12 sources) Bilateral lower limb edema; Translations: [Localized edema] 10-09-2024 Episodic Residual codes; unclassified (14 sources) Insomnia; Translations: [Insomnia, unspecified] 11-29-2024 Episodic [...] sources) Hypothyroidism; Translations: [Unspecified acquired hypothyroidism] Onset: 01-18-2014 Chronic Unclassified (1 source) LOW BACK PAIN, UNSPECIFIED; Translations: [LOW BACK PAIN, UNSPECIFIED] Onset: 2 Past or Other Problems Problem Classification Problem Date Documented Date Episodic/Chronic Deficiency and other anemia (20 sources) Iron deficiency anemia; Translations: [Iron deficiency [...] immune mechanism] Onset: 01-24-2024 01-24-2024 Episodic Other lower respiratory disease (1 source) Shortness of breath; Translations: [Shortness of breath] Onset: 10-09-2024 Episodic Other skin disorders (20 sources) Non-scarring [...] Test Name Value Interpretation Reference Range Facility X-ray reportOrdered By: Imtiaz Gresham on 01-08-2025 Study report [facility] [address] [place] [address] XRay Report Signed Patient: Lupe Pickard MR#: [id number] : 1975 Acct:[id number] Age/Sex: 49 / F ADM Date: 5 Loc: [facility] [place] Room: Type: [facility] Attending Dr: Melissa Benz II, MD Copies to: Melissa Benz MD~ Ordering Provider: Melissa Benz MD Date of Service: 01/08/25 XR/XR knee LT 4V*: M25.562 - Pain in left knee 4 views left knee plain film COMPARISON: 01/02/2025 HISTORY: Left knee pain for one week ACUTE FINDINGS: No acute findings DEGENERATIVE CHANGE: Mild. Marginal spurring SOFT TISSUE FINDINGS: Unremarkable JOINT EFFUSION: None POSTOP CHANGES: None BONE MINERALIZATION: Adequate XR/XR knee LT 4V* IMPRESSION: Mild degeneration, unchanged Impression dictated by: Rao Gresham M.D. 01/08/2025 8:11 PM Dictation Location: RADIO-PC-20 Transcribed By: [facility] 01/08/252010 Dictated By: Rao Gresham DO 01/08/252006 Signed By: 01/08/252010 [facility] Study report [facility] [address] [place] [address] XRay Report Signed Patient: Lupe Pickard MR#: [id number] : 1975 Acct:[id number] Age/Sex: 49 / F ADM Date: 5 Loc: [facility] [place] Room: Type: [facility] Attending Dr: Melissa Benz II, MD Copies to: Melissa Benz MD~ Ordering Provider: Melissa Benz MD Date of Service: 01/08/25 XR/XR pelvis 1-2V: M25.562 - Pain in left knee Single view of the pelvis plain film HISTORY: Left knee pain for one week COMPARISON: None ACUTE FINDINGS: None BONY ALIGNMENT: Adequate SOFT TISSUES: Unremarkable DEGENERATIVE CHANGE:Mild bilateral hip and SI joint degeneration INTRAPELVIC STRUCTURES: Unremarkable POSTSURGICAL CHANGES:Spinal neurostimulator present XR/XR pelvis 1-2V IMPRESSION:Mild degenerative change Impression dictated by: Rao Gresham M.D. 01/08/2025 8:07 PM Dictation Location: RADIO-PC-20 Transcribed By: [facility] 01/08/252006 Dictated By: Rao Gresham DO 01/08/252003 Signed By: 01/08/252006 [facility] XR knee LT 4V*on 08-12-2025 XR knee LT 4V* [facility] [address] [place] [address] XRay Report Signed Patient: Lupe Pickard MR#: [id number] : 1975 Acct:[id number] Age/Sex: 49 / F ADM Date: 01/08/25 Loc[place] [facility] [place]: Type: [facility] CLI Attending Dr: Melissa Benz II, MD Copies to: Melissa Benz MD Ordering Provider: Melissa Benz MD Date of Service: 01/08/25 XR/XR knee LT 4V*: M25.562 - Pain in left knee 4 views left knee plain film COMPARISON: 01/02/2025 HISTORY: Left knee pain for one week ACUTE FINDINGS: No acute findings DEGENERATIVE CHANGE: Mild. Marginal spurring SOFT TISSUE FINDINGS: Unremarkable JOINT EFFUSION: None POSTOP CHANGES: None BONE MINERALIZATION: Adequate XR/XR knee LT 4V* IMPRESSION: Mild degeneration, unchanged Impression dictated by: Rao Gresham M.D. 01/08/2025 8:11 PM Dictation Location: [place] [address] Transcribed By: [facility] 01/08/252010 Dictated By: Rao Gresham DO 01/08/252006 Signed By: 01/08/252010 Normal [facility] XR pelvis 1-2Von 01-08-2025 XR pelvis 1-2V [facility] [address] [place] [address] XRay Report Signed Patient: Lupe Pickard MR#: [id number] : 1975 Acct:[id number] Age/Sex: 49 / F ADM Date: 01/08/25 Loc[place] [facility] [place] [facility]: [facility] Attending Dr: Melissa Benz II, MD Copies to: Melissa Benz MD Ordering Provider: Melissa Benz MD Date of Service: 01/08/25 XR/XR pelvis 1-2V: M25.562 - Pain in left knee Single view of the pelvis plain film HISTORY: Left knee pain for one week COMPARISON: None ACUTE FINDINGS: None BONY ALIGNMENT: Adequate SOFT TISSUES: Unremarkable DEGENERATIVE CHANGE:Mild bilateral hip and SI joint degeneration INTRAPELVIC STRUCTURES: Unremarkable POSTSURGICAL CHANGES:Spinal neurostimulator present XR/XR pelvis 1-2V IMPRESSION:Mild degenerative change Impression dictated by: Rao Gresham M.D. 01/08/2025 8:07 PM Dictation Location: RADIO-PC-20 Transcribed By: [facility] 01/08/252006 Dictated By: Rao Gresham DO 01/08/252003 Signed By: 01/08/252006 Normal [facility] X-ray reportOrdered By: Nicolas Neff on 01-02-2025 Study report [facility] [place] [address] [place] [address] XRay Report Signed Patient: Lupe Pickard MR#: [id number] : 1975 Acct:[id number] Age/Sex: 49 / F ADM Date: 5 Loc: ER Room: Type: [facility] ER Attending Dr: Copies to: Javad Lozoya APRN~ Ordering Provider: Javad Lozoya APRN Date of Service: 01/02/25 XR/XR knee LT 4V*: Extremity Injury, Lower ([id number]) XR/XR shoulder RT min 2V*: Extremity Injury, Lower RIGHT SHOULDER - - 3 views, left knee 4 views CLINICAL HISTORY: Left knee pain and swelling for 2 days. Generalized right shoulder pain for 2 months COMPARISON: Right shoulder 09/20/2023 FINDINGS: Right shoulder: Mild degenerative changes involving the AC joint without acute bony process. Glenohumeral joint appears unremarkable. Left knee: Small joint effusion. Mild degenerative changes without acute bony process. XR/XR shoulder RT min 2V* IMPRESSION: MILD DEGENERATIVE CHANGES INVOLVING THE RIGHT SHOULDER LEFT KNEE WITHOUT ACUTE BONY PROCESS. Impression dictated by: Bob Neff Jr., D.OJaycee 01/02/2025 12:14 PM Dictation Location: RADIO-PC-23 Transcribed By: BOB 01/02/25 1214 Dictated By: Bob Neff Jr, DO 01/02/25 1213 Signed By: 01/02/25 1214 [facility] XR knee LT 4V*on 01-02-2025 XR knee LT 4V* [facility] [place] [address] [place] [address] XRay Report Signed Patient: Lupe Pickard MR#: [id number] : 1975 Acct:[id number] Age/Sex: 49 / F ADM Date: 01/02/25 Loc: ER Room: Type: [facility] ER Attending Dr: Copies to: Javad Lozoya APRN Ordering Provider: Javad Lozoya APRN Date of Service: 01/02/25 XR/XR knee LT 4V*: Extremity Injury, Lower ([id number]) XR/XR shoulder RT min 2V*: Extremity Injury, Lower RIGHT SHOULDER - - 3 views, left knee 4 views CLINICAL HISTORY: Left knee pain and swelling for 2 days. Generalized right shoulder pain for 2 months COMPARISON: Right shoulder 09/20/2023 FINDINGS: Right shoulder: Mild degenerative changes involving the AC joint without acute bony process. Glenohumeral joint appears unremarkable. Left knee: Small joint effusion. Mild degenerative changes without acute bony process. XR/XR shoulder RT min 2V* IMPRESSION: MILD DEGENERATIVE CHANGES INVOLVING THE RIGHT SHOULDER LEFT KNEE WITHOUT ACUTE BONY PROCESS. Impression dictated by: Bob Neff Jr., D.O. 01/02/2025 12:14 PM Dictation Location: [place] [address] Transcribed By: [facility] 01/02/25 1214 Dictated By: Bob Neff Jr, DO 01/02/25 1213 Signed By: 01/02/25 1214 Normal [facility] CT ABDOMEN PELVIS W IV CONTR Deann 12-13-2024 CT ABDOMEN PELVIS W IV CONTRAST EXAM: CT ABDOMEN PELVIS W IV CONTRAST [...] of the spine. Spinal cord stimulator noted. IMPRESSION: No acute abdominopelvic process. Hepatomegaly. ELECTRONICALLY SIGNED BY: Melissa Wetzel, DO Normal Not Available A1C with Estimated Average G billie 12-07-2024 Glucose [Mass/Vol] 117 mg/dL Normal [facility] Comment on above: Result Comment: PERF ORMED BY: [place] [address] PATHOLOGIST LEAD PASTOR MARIUM AVALOS M.D. Performed By: #### C MP, UA, LIPID, TSH3, CBC, URMACRERAT, LILLIANA, FE and TIBC #### [address] WILL Antinuclear Antibodieson 12-07-2024 Antinuclear Abs, IFA Negative Normal . [facility] Comment on above: Result Comment: Nega tive <1:80 Borderline 1:80 Positive >1:80 ICAP nomenclature: AC-0 For more information about Hep-2 cell patterns use ANApatterns.org, the official website for the International Consensus on Antinuclear Antibody (WILL) Patterns (ICAP). Performed at: - [facility] [id number] Cleaning Crew Member: Ramirez Ca PhD, Phone: [phone] Performed By: #### C MP, UA, LIPID, TSH3, CBC, URMACRERAT, LILLIANA, FE and TIBC #### [address] Alanine aminotransferase [En zymatic activity/volume] in Serum or PlasmaOrdered By: OMID QUAN on 12-07-2024 ALT [Catalytic activity/Vol] 29 U/L Normal 7-52 [facility] Comment on above: Performed By: #### C MP, UA, LIPID, TSH3, CBC, URMACRERAT, LILLIANA, FE and TIBC #### [place] [address] [place] Albumin [Mass/volume] in Ser um or Plasma by Bromocresol green (BCG) dye binding methoOrdered By: OMID QUAN on 12-07-2024 Albumin BCG dye [Mass/Vol] 3.8 g/dL 3.5-5.7 [facility] Alkaline phosphatase [Enzyma tic activity/volume] in Serum or PlasmaOrdered By: OMID QUAN on 12-07-2024 ALP [Catalytic activity/Vol] 56 U/L Normal 34-104 [facility] Comment on above: Performed By: #### C MP, UA, LIPID, TSH3, CBC, URMACRERAT, LILLIANA, FE and TIBC #### [facility] [address] [place] [address] Appearance of UrineOrdered B y: OMID QUAN on 12-07-2024 Appearance (U) Clear Normal Clear [facility] Comment on above: Order Comment: Name Collection Type:: Clean-Voided Midstream Performed By: #### C MP, UA, LIPID, TSH3, CBC, URMACRERAT, LILLIANA, FE and TIBC #### [facility] [address] [place] [address] [place] Aspartate aminotransferase [ Enzymatic activity/volume] in Serum or PlasmaOrdered By: OMID QUAN on 12-07-2024 AST [Catalytic activity/Vol] 20 U/L Normal 13-39 [facility] Comment on above: Performed By: #### C MP, UA, LIPID, TSH3, CBC, URMACRERAT, LILLIANA, FE and TIBC #### [facility] [address] [place] [address] Bacteria [Presence] in Urine by AutomatedOrdered By: OMID QUAN on 12-07-2024 Bacteria Auto Ql (U) None seen [HPF] None Seen [facility] Bilirubin Test strip Ql (U)O rdered By: OMID QUAN on 12-07-2024 Bilirubin Ql (U) Negative Negative [facility] Bilirubin.total [Mass/volume ] in Serum or PlasmaOrdered By: OMID QUAN on 12-07-2024 Bilirubin [Mass/Vol] 0.4 mg/dL Normal 0.3-1.0 [facility] Comment on above: Performed By: #### C MP, UA, LIPID, TSH3, CBC, URMACRERAT, LILLIANA, FE and TIBC #### [facility] [address] Blood estimated average gluc ose determination by estimation from glycated hemoglobinOrdered By: OMID QUAN on 12-07-2024 Average glucose Estimated from glycated hemoglobin (Bld) [Mass/Vol] 117 mg/dL [facility] C reactive protein [Mass/vol ume] in Serum or Plasma by High sensitivity methodOrdered By: OMID QUAN on 12-07-2024 CRP High sensitivity method [Mass/Vol] 15.7 mg/L High 0.0-0.9 [facility] Comment on above: Cardiovascular Risk Classification (AHA/CDC)hsCRP [...] 15.7 mg/L High 0.0 - 0.9 mg/L [facility] Comment on above: Cardiovascular Risk Classification (AHA/CDC) [...] and review of laboratory results Abnormal [facility] Calcium [Mass/volume] in Ser um or PlasmaOrdered By: OMID QUAN on 12-07-2024 Calcium [Mass/Vol] 9.0 mg/dL Normal 8.6-10.3 [facility] Comment on above: Performed By: #### C MP, UA, LIPID, TSH3, CBC, URMACRERAT, LILLIANA, FE and TIBC #### [facility] [address] Carbon dioxide, total [Moles /volume] in Serum or PlasmaOrdered By: OMID QUAN on 12-07-2024 CO2 [Moles/Vol] 31.0 mmol/L Normal 21.0-31.0 [facility] Comment on above: Performed By: #### C MP, UA, LIPID, TSH3, CBC, URMACRERAT, LILLIANA, FE and TIBC #### [facility] [address] Chloride [Moles/volume] in S zakia or PlasmaOrdered By: OMID QUAN on 12-07-2024 Chloride [Moles/Vol] 101 mmol/L Normal 98-107 [facility] Comment on above: Performed By: #### C MP, UA, LIPID, TSH3, CBC, URMACRERAT, LILLIANA, FE and TIBC #### [address] Color of Urine by AutoOrdere d By: OMID QUAN on 12-07-2024 Color (U) Light-yellow Normal Yellow [facility] Comment on above: Order Comment: Name Collection Type:: Clean-Voided Midstream Performed By: #### C MP, UA, LIPID, TSH3, CBC, URMACRERAT, LILLIANA, FE and TIBC #### [address] Comprehensive Metabolic Pane soniya 12-07-2024 Albumin [Mass/Vol] 3.8 g/dL Normal 3.5-5.7 [facility] Comment on above: Performed By: #### C MP, UA, LIPID, TSH3, CBC, URMACRERAT, LILLIAAN, FE and TIBC #### [facility] [address] [place] [id number] [facility] GFR/1.73 sq M.predicted MDRD (S/P/Bld) [Vol rate/Area] mL/min/{1.73_m2} Normal [facility] Comment on above: Performed By: #### C MP, UA, LIPID, TSH3, CBC, URMACRERAT, LILLIANA, FE and TIBC #### [facility] [address] [place] [id number] [facility] Comprehensive metabolic pane soniya 12-07-2024 Albumin [Mass/Vol] 3.8 g/dL 3.5 - 5.7 g/dL [facility] Albumin/Globulin [Mass ratio] 1.4 {ratio} [facility] ALP [Catalytic activity/Vol] 56 U/L 34 - 104 U/L [facility] ALT [Catalytic activity/Vol] 29 U/L 7 - 52 U/L [facility] Anion gap [Moles/Vol] 11.2 mmol/L 6.0 - 15.0 [facility] AST [Catalytic activity/Vol] 20 U/L 13 - 39 U/L [facility] Bilirubin [Mass/Vol] 0.4 mg/dL 0.3 - 1 .0 mg/dL [facility] Calcium [Mass/Vol] 9 mg/dL 8.6 - 10. 3 mg/dL [facility] Chloride [Moles/Vol] 101 mmol/L 98 - 10 7 mmol/L [facility] CO2 [Moles/Vol] 31 mmol/L 21.0 - 31.0 mmol/L [facility] Creatinine (U) [Mass/Vol] 0.5 mg/dL Low 0.60 - 1.20 mg/dL [facility] ESTIMATED GFR [facility] Globulin (S) [Mass/Vol] 2.7 g/dL [facility] Glucose [Mass/Vol] 109 mg/dL High 70 - 100 mg/dL [facility] Comment on above: Random Glucose Refer ence Range is dependent on time and content of last meal. Glucose of more than 200 mg/dL in a nonstressed, ambulatory subject supports the diagnosis of Diabetes Mellitus. ADA recommended reference range Interpretation and review of laboratory results Abnormal [facility] Potassium [Moles/Vol] 4.2 mmol/L 3.5 - 5.1 mmol/L [facility] Protein [Mass/Vol] 6.5 g/dL 6.4 - 8.9 g/dL [facility] Sodium [Moles/Vol] 139 mmol/L 136 - 145 mmol/L [facility] Urea nitrogen [Mass/Vol] 12 mg/dL 7 - 25 mg/dL [facility] Creatinine [Mass/volume] in Serum or PlasmaOrdered By: OMID QUAN on 12-07-2024 Creatinine [Mass/Vol] 0.50 mg/dL Low 0.60-1.20 [facility] Comment on above: Performed By: #### C MP, UA, LIPID, TSH3, CBC, URMACRERAT, LILLIANA, FE and TIBC #### [address] Creatinine [Mass/volume] in UrineOrdered By: OMID QUAN on 12-07-2024 Creatinine (U) [Mass/Vol] 75.00 mg/dL [facility] Comment on above: No reference range e stablished Dipstick and Microscopicon 0 12-07-2024 Bacteria,Urine None Seen Normal None Seen [facility] Comment on above: Order Comment: Name Collection Type:: Clean-Voided Midstream Performed By: #### C MP, UA, LIPID, TSH3, CBC, URMACRERAT, LILLIANA, FE and TIBC #### [facility] [address] Bilirubin,Urine Negative Normal Negative [facility] Comment on above: Order Comment: Name Collection Type:: Clean-Voided Midstream Performed By: #### C MP, UA, LIPID, TSH3, CBC, URMACRERAT, LILLIANA, FE and TIBC #### [facility] [address] Glucose Ql (U) Normal Normal Normal [facility] Comment on above: Order Comment: Name Collection Type:: Clean-Voided Midstream Performed By: #### C MP, UA, LIPID, TSH3, CBC, URMACRERAT, LILLIANA, FE and TIBC #### [address] Hyaline Casts,Urine None Normal 0-8 [facility] Comment on above: Order Comment: Name Collection Type:: Clean-Voided Midstream Performed By: #### C MP, UA, LIPID, TSH3, CBC, URMACRERAT, LILLIANA, FE and TIBC #### [address] Mucus,Urine Rare Normal [facility] Comment on above: Order Comment: Name Collection Type:: Clean-Voided Midstream Result Comment: PERF ORMED BY: [place] [address] PATHOLOGIST LEAD PASTOR MARIUM AVALOS M.D. Performed By: #### C MP, UA, LIPID, TSH3, CBC, URMACRERAT, LILLIANA, FE and TIBC #### [address] Nitrite,Urine Negative Normal Negative [facility] Comment on above: Order Comment: Name Collection Type:: Clean-Voided Midstream Performed By: #### C MP, UA, LIPID, TSH3, CBC, URMACRERAT, LILLIANA, FE and TIBC #### [address] Occult Blood,Urine Negative Normal Negative [facility] Comment on above: Order Comment: Name Collection Type:: Clean-Voided Midstream Performed By: #### C MP, UA, LIPID, TSH3, CBC, URMACRERAT, LILLIANA, FE and TIBC #### [address] Protein,Urine Negative Normal Negative [facility] Comment on above: Order Comment: Name Collection Type:: Clean-Voided Midstream Performed By: #### C MP, UA, LIPID, TSH3, CBC, URMACRERAT, LILLIANA, FE and TIBC #### [address] RBC,Urine 1-2 Normal 0-4 [facility] Comment on above: Order Comment: Name Collection Type:: Clean-Voided Midstream Performed By: #### C MP, UA, LIPID, TSH3, CBC, URMACRERAT, LILLIANA, FE and TIBC #### [facility] [address] Specificy [place],Urine 1.023 Normal 1.001-1.03 0 [facility] Comment on above: Order Comment: Name Collection Type:: Clean-Voided Midstream Performed By: #### C MP, UA, LIPID, TSH3, CBC, URMACRERAT, LILLIANA, FE and TIBC #### [facility] [address] Squamous Epithelial Cell,Urine 1-2 Normal 0-2 [facility] Comment on above: Order Comment: Name Collection Type:: Clean-Voided Midstream Performed By: #### C MP, UA, LIPID, TSH3, CBC, URMACRERAT, LILLIANA, FE and TIBC #### [address] Urobilinogen,Urine Normal Normal Normal [facility] Comment on above: Order Comment: Name Collection Type:: Clean-Voided Midstream Performed By: #### C MP, UA, LIPID, TSH3, CBC, URMACRERAT, LILLIANA, FE and TIBC #### [address] WBC,Urine 1-2 Normal 0-4 [facility] Comment on above: Order Comment: Name Collection Type:: Clean-Voided Midstream Performed By: #### C MP, UA, LIPID, TSH3, CBC, URMACRERAT, LILLIANA, FE and TIBC #### [address] ESR (Bld) [Velocity]on 12-07 Interpretation and review of laboratory results Abnormal [facility] Epithelial cells.squamous [# /area] in Urine sediment by Automated countOrdered By: OMID QUAN on 12-07-2024 Epithelial cells.squamous Auto (Urine sed) [#/Area] 1-2 [HPF] 0-2 [facility] Erythrocyte Sedimentation Ra frank 12-07-2024 ESR (Bld) [Velocity] 22 mm/h High 0-19 [facility] Comment on above: Result Comment: PERF ORMED BY: [place] [address] PATHOLOGIST LEAD PASTOR MARIUM AVALOS M.D. Performed By: #### C MP, UA, LIPID, TSH3, CBC, URMACRERAT, LILLIANA, FE and TIBC #### [address] Erythrocyte sedimentation ra te by Photometric methodOrdered By: OMID QUAN on 12-07-2024 ESR Photometric method (Bld) [Velocity] 22 mm/hr High 0-19 [facility] Erythrocytes [#/area] in Uri ne sediment by Automated countOrdered By: OMID QUAN on 12-07-2024 RBC Auto (Urine sed) [#/Area] 1-2 [HPF] 0-4 [facility] Free K+L LT Chains, Qn, Son 12-07-2024 Free Dortches Light Chains, S 12.3 mg/L Normal 3.3-19.4 [facility] Comment on above: Performed By: #### C MP, UA, LIPID, TSH3, CBC, URMACRERAT, LILLIANA, FE and TIBC #### [address] Free Lambda Light Chains, S 14.2 mg/L Normal 5.7-26.3 [facility] Comment on above: Performed By: #### C MP, UA, LIPID, TSH3, CBC, URMACRERAT, LILLIANA, FE and TIBC #### [place] [address] [place] Dortches/Lambda Ratio, S 0.87 Normal 0.26-1.65 [facility] Comment on above: Result Comment: Perf ormed at: - [facility] [address] [id number] Cleaning Crew Member: Ramirez Ca PhD, Phone: [phone] PERFORMED BY: [place] [address] PATHOLOGIST LEAD PASTOR MARIUM AVALOS M.D. Performed By: #### C MP, UA, LIPID, TSH3, CBC, URMACRERAT, LILLIANA, FE and TIBC #### [facility] [address] [place] [address] [place] Glucose [Mass/volume] in Ser um or PlasmaOrdered By: OMID QUAN on 12-07-2024 Glucose [Mass/Vol] 109 mg/dL High 70-100 [facility] Comment on above: ADA recommended refe rence rangeRandom Glucose Reference Range is dependent on time and content of last meal. Glucose of more than 200 mg/dL in a nonstressed, ambulatory subject supports the diagnosis of Diabetes Mellitus. Result Comment: [place] om Glucose Reference Range is dependent on time and content of last meal. Glucose of more than 200 mg/dL in a nonstressed, ambulatory subject supports the diagnosis of Diabetes Mellitus. ADA recommended reference range Performed By: #### C MP, UA, LIPID, TSH3, CBC, URMACRERAT, LILLIANA, FE and TIBC #### [facility] [address] [place] [address] [place] Glucose [Mass/volume] in Uri ne by Test stripOrdered By: OMID QUAN on 12-07-2024 Glucose Test strip (U) [Mass/Vol] Normal mg/dL Normal [facility] Hemoglobin A1c/Hemoglobin.to hiram in BloodOrdered By: OMID QUAN on 12-07-2024 HbA1c (Bld) [Mass fraction] 5.7 % High 4.3-5.6 [facility] Comment on above: Increased risk for d iabetes: 5.7 - 6.4diabetes: >6.4glycemic control for adults with diabetes: <7.0 Result Comment: Incr eased risk for diabetes: 5.7 - 6.4 diabetes: >6.4 glycemic control for adults with diabetes: <7.0 Performed By: #### C MP, UA, LIPID, TSH3, CBC, URMACRERAT, LILLIANA, FE and TIBC #### [facility] [address] [place] [address] [place] Hemoglobin Test strip Ql (U) Ordered By: OMID QUAN on 12-07-2024 Hemoglobin Ql (U) Negative Negative [facility] Hemoglobin a1c with eagon Glucose [Mass/Vol] 117 mg/dL [facility] HbA1c (Bld) [Mass fraction] 5.7 % High 4.3 - 5.6 % [facility] Comment on above: Increased risk for d iabetes: 5.7 - 6.4 diabetes: >6.4 glycemic control for adults with diabetes: <7.0 Interpretation and review of laboratory results Abnormal [facility] High Sensitive CRPon 025 High Sensitive CRP 15.7 mg/L High 0.0-0.9 [facility] Comment on [...] for estimation of CVD risk. PERFORMED BY: [place] [address] PATHOLOGIST LEAD PASTOR MARIUM AVALOS M.D. Performed By: #### C MP, UA, LIPID, TSH3, CBC, URMACRERAT, LILLIANA, FE and TIBC #### [facility] [address] [place] [address] Hyaline casts [#/area] in Ur ine sediment by Automated countOrdered By: OMID QUAN on 12-07-2024 Hyaline casts Auto (Urine sed) [#/Area] None [LPF] 0-8 [facility] Ketones [Presence] in Urine by Test stripOrdered By: OMID QUAN on 12-07-2024 Ketones Ql (U) Negative Normal Negative [facility] Comment on above: Order Comment: Name Collection Type:: Clean-Voided Midstream Performed By: #### C MP, UA, LIPID, TSH3, CBC, URMACRERAT, LILLIANA, FE and TIBC #### [facility] [address] Leukocyte esterase [Presence ] in Urine by Test stripOrdered By: OMID QUAN on 12-07-2024 Leukocyte esterase Test strip Ql (U) Negative Normal Negative [facility] Comment on above: Order Comment: Name Collection Type:: Clean-Voided Midstream Performed By: #### C MP, UA, LIPID, TSH3, CBC, URMACRERAT, LILLIANA, FE and TIBC #### [facility] [address] Leukocytes [#/area] in Urine sediment by Automated countOrdered By: OMID QUAN on 12-07-2024 WBC Auto (Urine sed) [#/Area] 1-2 [HPF] 0-4 [facility] Magnesiumon 12-07-2024 Magnesium [Mass/Vol] 1.9 mg/dL 1.9 - 2 .7 mg/dL [facility] Magnesium [Mass/volume] in S zakia or PlasmaOrdered By: OMID QUAN on 12-07-2024 Magnesium [Mass/Vol] 1.9 mg/dL Normal 1.9-2.7 [facility] Comment on above: Result Comment: PERF ORMED BY: [place] [address] PATHOLOGIST LEAD PASTOR MARIUM AVALOS M.D. Performed By: #### C MP, UA, LIPID, TSH3, CBC, URMACRERAT, LILLIANA, FE and TIBC #### [address] MicroAlb Creat Ratio,Uon Creatinine, Urine (Random) 75.00 mg/dL Normal [facility] Comment on above: Result Comment: No r eference range established Performed By: #### C MP, UA, LIPID, TSH3, CBC, URMACRERAT, LILLIANA, FE and TIBC #### [address] Microalbumin/Creatini ne Ratio Not performed Normal 0.0-30.0 [facility] Comment on above: Result Comment: PERF ORMED BY: [place] [address] PATHOLOGIST LEAD PASTOR MARIUM AVALOS M.D. Performed By: #### C MP, UA, LIPID, TSH3, CBC, URMACRERAT, LILLIANA, FE and TIBC #### [facility] [address] Microalbumin [Mass/volume] i n UrineOrdered By: OMID QUAN on 12-07-2024 Albumin DL <= 20 mg/L (U) [Mass/Vol] mg/dL Normal 0.0-1.8 [facility] Comment on above: Performed By: #### C MP, UA, LIPID, TSH3, CBC, URMACRERAT, LILLIANA, FE and TIBC #### [facility] [address] Microalbumin/Creatinine rati o panel (U)on 12-07-2024 Albumin [Mass/Vol] mg/dL 0.0 - 1.8 mg/dL [facility] Creatinine spec 2 (U) [Mass/Vol] 75 mg/dL [facility] Comment on above: No reference range e stablished MICROALBUMIN/CREATINI NE RATIO Not performed 0.0 - 30.0 mg/g [facility], [facility]–1983 Mucus [Presence] in Urine by AutomatedOrdered By: OMID QUAN on 12-07-2024 Mucus Auto Ql (U) Rare [LPF] [facility] Nitrite Test strip Ql (U)Ord ered By: OMID QUAN on 12-07-2024 Nitrite Ql (U) Negative Negative [facility] No Panel Informationon 12-07 [facility] No Panel InformationOrdered By: OMID QUAN on 12-07-2024 Estimated GFR (CKD-EPI) > 60.0 mL/Min [facility] Creatinine Clearance (Chem N/A [facility] Protein Electrophoresis M-Chacorta Not observed g/dL Not Observed [facility] Protein Electrophoresis Note Comment . [facility] Comment on above: Protein electrophore sis scan will follow via computer,mail, or cabin crew delivery. Potassium [Moles/volume] in Serum or PlasmaOrdered By: OMID QUAN on 12-07-2024 Potassium [Moles/Vol] 4.2 mmol/L Normal 3.5-5.1 [facility] Comment on above: Performed By: #### C MP, UA, LIPID, TSH3, CBC, URMACRERAT, LILLIANA, FE and TIBC #### [address] Protein Electrophoresis, Ser umon 12-07-2024 Tslfl-2-Hoditqli 0.2 g/dL Normal 0.0-0.4 [facility] Comment on above: Performed By: #### C MP, UA, LIPID, TSH3, CBC, URMACRERAT, LILLIANA, FE and TIBC #### [address] Gjqpt-2-Vhogtigo 0.9 g/dL Normal 0.4-1.0 [facility] Comment on above: Performed By: #### C MP, UA, LIPID, TSH3, CBC, URMACRERAT, LILLIANA, FE and TIBC #### [address] Beta Globulin 1.1 g/dL Normal 0.7-1.3 [facility] Comment on above: Performed By: #### C MP, UA, LIPID, TSH3, CBC, URMACRERAT, LILLIANA, FE and TIBC #### [address] Gamma Globulin 0.9 g/dL Normal 0.4-1.8 [facility] Comment on above: Performed By: #### C MP, UA, LIPID, TSH3, CBC, URMACRERAT, LILLIANA, FE and TIBC #### [address] M-Chacorta Not Observed Normal Not Observed [facility] Comment on above: Performed By: #### C MP, UA, LIPID, TSH3, CBC, URMACRERAT, LILLIANA, FE and TIBC #### [address] SPE-Note Comment Normal . [facility] Comment on above: Result Comment: Prot ein electrophoresis scan will follow via computer, mail, or cabin crew delivery. Performed By: #### C MP, UA, LIPID, TSH3, CBC, URMACRERAT, LILLIANA, FE and TIBC #### [address] Protein Test strip (U) [Mass /Vol]Ordered By: OMID QUAN on 12-07-2024 Protein (U) [Mass/Vol] Negative Negative [facility] Protein [Mass/volume] in Ser um or PlasmaOrdered By: OMID QUAN on 12-07-2024 Protein [Mass/Vol] 6.5 g/dL Normal 6.4-8.9 [facility] Comment on above: Performed By: #### C MP, UA, LIPID, TSH3, CBC, URMACRERAT, LILLIANA, FE and TIBC #### [address] Rheumatoid Factoron 12-08-19 25 Rheumatoid Factor 10.4 Normal <14.0 [facility] Comment on above: Result Comment: Perf ormed at: - [facility] [place] [id number] Cleaning Crew Member: Ramirez Ca PhD, Phone: [phone] Performed By: #### C MP, UA, LIPID, TSH3, CBC, URMACRERAT, LILLIANA, FE and TIBC #### [address] Sedimentation rate, automate don 12-07-2024 ESR (Bld) [Velocity] 22 mm/h High 0 - 19 [facility] Serum free kappa light chain measurementOrdered By: OMID QUAN on 12-07-2024 Immunoglobulin light chains.kappa.free (S) [Mass/Vol] 12.3 mg/L 3.3-19.4 [facility] Serum globulin measurement ( mass/volume)Ordered By: OMID QUAN on 12-07-2024 Globulin (S) [Mass/Vol] 3.1 g/dL Normal 2.2-3.9 [facility] Comment on above: Performed By: #### C MP, UA, LIPID, TSH3, CBC, URMACRERAT, LILLIANA, FE and TIBC #### [facility] [address] [place] [address] [place] Serum globulin measurement b y calculation (mass/volume)Ordered By: OMID QUAN on 12-07-2024 Globulin (S) [Mass/Vol] 2.7 g/dL Normal [facility] Comment on above: Performed By: #### C MP, UA, LIPID, TSH3, CBC, URMACRERAT, LILLIANA, FE and TIBC #### [facility] [address] Serum homogeneous pattern an tinuclear antibody (WILL) titerOrdered By: MOID QUAN on 12-07-2024 Homogenous nuclear Ab pattern (S) [Titer] N/A [facility] Serum immunoglobulin free ka ppa light chains/immunoglobulin free lambda light chainsOrdered By: OMID QUAN on 12-07-2024 Immunoglobulin light chains.kappa.free/Imm unoglobulin light chains.lambda.free (S) [Mass ratio] 0.87 0.26-1.65 [facility] Comment on above: Performed at: [place] [id number] Director: Ramirez Ca PhD, Phone: [phone] Serum nuclear antibody titer Ordered By: OMID QUAN on 12-07-2024 Nuclear Ab (S) [Titer] Negative . [facility] Comment on above: Negative <1:80 Sergiode denise 1:80 Positive >1:80ICAP nomenclature: AC-0For more information about Hep-2 cell patterns useANApatterns.org, the official website for theInternational Consensus on Antinuclear Antibody (WILL)Patterns (ICAP).Performed at: [facility] [address] [id number] Director: Ramirez Ca PhD, Phone: [phone] Serum or plasma albumin merari urement (mass/volume)Ordered By: OMID QUAN on 12-07-2024 Albumin [Mass/Vol] 3.3 g/dL Normal 2.9-4.4 [facility] Comment on above: Performed By: #### C MP, UA, LIPID, TSH3, CBC, URMACRERAT, LILLIANA, FE and TIBC #### [facility] [address] Serum or plasma albumin/glob ulin mass ratioOrdered By: OMID QUAN on 12-07-2024 Albumin/Globulin [Mass ratio] 1.4 {ratio} Normal [facility] Comment on above: Performed By: #### C MP, UA, LIPID, TSH3, CBC, URMACRERAT, LILLIANA, FE and TIBC #### [facility] [address] Albumin/Globulin [Mass ratio] 1.1 {ratio} Normal 0.7-1.7 [facility] Comment on above: Performed By: #### C MP, UA, LIPID, TSH3, CBC, URMACRERAT, LILLIANA, FE and TIBC #### [facility] [address] Serum or plasma alpha 1 glob ulin measurement by electrophoresis (mass/volume)Ordered By: OMID QUAN on 12-07-2024 Alpha 1 globulin Elph [Mass/Vol] 0.2 g/dL 0.0-0.4 [facility] Serum or plasma alpha 2 glob ulin measurement by electrophoresis (mass/volume)Ordered By: OMID QUAN on 12-07-2024 Alpha 2 globulin Elph [Mass/Vol] 0.9 g/dL 0.4-1.0 [facility] Serum or plasma anion gap de terminationOrdered By: OMID QUAN on 12-07-2024 Anion gap [Moles/Vol] 11.2 mmol/L Normal 6.0-15.0 [facility] Comment on above: Performed By: #### C MP, UA, LIPID, TSH3, CBC, URMACRERAT, LILLIANA, FE and TIBC #### [facility] [address] Serum or plasma beta globuli n measurement by electrophoresis (mass/volume)Ordered By: OMID QUAN on 12-07-2024 Beta globulin Elph [Mass/Vol] 1.1 g/dL 0.7-1.3 [facility] Serum or plasma gamma globul in measurement by electrophoresis (mass/volume)Ordered By: OMID QUAN on 12-07-2024 Gamma globulin Elph [Mass/Vol] 0.9 g/dL 0.4-1.8 [facility] Serum or plasma immunoglobul in free lambda light chains measurement (mass/volume)Ordered By: OMID QUAN on 12-07-2024 Immunoglobulin light chains.lambda.free [Mass/Vol] 14.2 mg/L 5.7-26.3 [facility] Serum or plasma rheumatoid f actor measurement (units/volume)Ordered By: OMID QUAN on 12-07-2024 Rheumatoid factor Qn 10.4 [IU]/mL <14.0 [facility] Comment on above: Performed at: [address] Director: Ramirez Ca PhD, Phone: [phone] Serum total protein measurem entOrdered By: OMID QUAN on 12-07-2024 Protein [Mass/Vol] 6.4 g/dL Normal 6.0-8.5 [facility] Comment on above: Performed By: #### C MP, UA, LIPID, TSH3, CBC, URMACRERAT, LILLIANA, FE and TIBC #### [facility] [address] [place] [address] Sodium [Moles/volume] in Ser um or PlasmaOrdered By: OMID QUAN on 12-07-2024 Sodium [Moles/Vol] 139 mmol/L Normal 136-145 [facility] Comment on above: Performed By: #### C MP, UA, LIPID, TSH3, CBC, URMACRERAT, LILLIANA, FE and TIBC #### [facility] [address] Specific gravity Test strip (U) [Rel density]Ordered By: OMID QUAN on 12-07-2024 Specific gravity (U) [Rel density] 1.023 1.001-1.03 0 [facility] Urea nitrogen [Mass/volume] in Serum or PlasmaOrdered By: OMID QUAN on 12-07-2024 Urea nitrogen [Mass/Vol] 12 mg/dL Normal 7-25 [facility] Comment on above: Performed By: #### C MP, UA, LIPID, TSH3, CBC, URMACRERAT, LILLIANA, FE and TIBC #### [facility] [address] Urine microalbumin/creatinin e mass ratioOrdered By: OMID QUAN on 12-07-2024 Albumin/Creatinine DL <= 20 mg/L (U) [Mass ratio] TNP [facility] Comment on above: Test not performed Urobilinogen Test strip (U) [Mass/Vol]Ordered By: OMID QUAN on 12-07-2024 Urobilinogen (U) [Mass/Vol] Normal mg/dL Normal [facility] X-ray reportOrdered By: Carlie Thacker on 12-07-2024 Study report [facility] [place] [address] [place] [address] XRay Report Signed Patient: Lupe Pickard MR#: [id number] : 1975 Acct:[id number] Age/Sex: 49 / F ADM Date: 5 Loc: XD Room: Type: [facility] Attending Dr: Omid Quan RN, MSN, [...] Thacker M.D. 12/07/2024 11:37 AM Dictation Location: [place] [address] Transcribed By: BOB 12/07/24 1137 Dictated By: Rizwana Thacker MD 12/07/241136 Signed By: 12/07/241136 [facility] Work Phone: XR chest 2V*on 12-07-2024 XR chest 2V* [facility] [place] [address] [place] [address] XRay Report Signed Patient: Lupe Pickard MR#: [id number] : 1975 Acct:[id number] Age/Sex: 49 / F ADM Date: 12/07/24 Loc: XD Room: Type: [facility] Attending Dr: Omid Quan RN, MSN, [...] Thacker M.D. 12/07/2024 11:37 AM Dictation Location: [place] [address] Transcribed By: BOB 12/07/24 1137 Dictated By: Rizwana Thacker MD 12/07/241136 Signed By: 12/07/24 113 Normal [facility] pH of Urine by Test stripOrd ered By: OMID QUAN on 12-07-2024 pH (U) 7.0 [pH] Normal 5.0-9.0 [facility] Comment on above: Order Comment: Name Collection Type:: Clean-Voided Midstream Performed By: #### C MP, UA, LIPID, TSH3, CBC, URMACRERAT, LILLIANA, FE and TIBC #### [facility] [address] Heart and Vascular Office/Cl inic Noteon 11-29-2024 Heart and Vascular Office/Clinic Note [...] tab(s), Oral, Daily, 90 tab(s), Refill(s) 0, [facility], 167, cm, 11/29/24 15:47:00 EDT, Height/Length Dosing, 144.8, kg, 11/29/24 15:47:00 EDT, Weight Dosing Basic Metabolic Panel 2. Sleep apnea (G47.30: Sleep apnea, unspecified) I recommend Dr. Coon prescribe Wegovy to help with her sleep apnea as well as with her significant weight gain. Ordered: hydrochlorothiazide-losart an, 1 tab(s), Oral, Daily, 90 tab(s), Refill(s) 0, [facility], 167, cm, 11/29/24 15:47:00 EDT, [...] guidance (12/14/ (more content not included)... Normal [facility] Comment on above: Result Comment: Elec tronically Signed By: Vickie PELAYO, Santos Katz\.br\Date and Time Signed: 11/29/24 16:57 EDT X-ray reportOrdered By: Michael Perez on 11-29-2024 Study report [place] [address] XRay Report Signed Patient: Lupe Pickard MR#: [id number] : 1975 Acct:[id number] Age/Sex: 49 / F ADM Date: 5 Loc: XD Room: Type: [facility] Attending Dr: Dalia Dennis EMERGENCY MEDICINE PHYSICIAN ASSISTANT-C Copies to: Dalia Dennis NP~ Ordering Provider: [...] Perez M.D. 11/29/2024 2:03 PM Dictation Location: [facility]-26 Transcribed By: BOB 11/29/241402 Dictated By: Larry Perez MD 11/29/24 140 Signed By: 11/29/241402 [facility] Work Phone: XR lumbar spine 2-3V*on XR lumbar spine 2-3V* [facility] [place] [address] [place] [address] XRay Report Signed Patient: Lupe Pickard MR#: [id number] : 1975 Acct:[id number] Age/Sex: 49 / F ADM Date: 11/29/24 Loc: XD Room: Type: [facility] Attending Dr: Dalia Dennis EMERGENCY MEDICINE PHYSICIAN ASSISTANT-C Copies to: Dalia Dennis NP Ordering Provider: [...] Perez M.D. 11/29/2024 2:03 PM Dictation Location: [facility]-26 Transcribed By: BOB 11/29/241402 Dictated By: Larry Perez MD 11/29/241401 Signed By: 11/29/24 140 Normal [facility] Basic Metabolic Panelon GFR/1.73 sq M.predicted MDRD (S/P/Bld) [Vol rate/Area] mL/min/{1.73_m2} Normal [facility] Comment on above: Performed By: #### B MP #### [address] Calcium [Mass/volume] in Ser um or PlasmaOrdered By: Dalia Dennis on 11-27-2024 Calcium [Mass/Vol] 8.6 mg/dL Normal 8.6-10.3 [facility] Comment on above: Result Comment: PERF ORMED BY: [place] [address] PATHOLOGIST LEAD PASTOR MARIUM AVALOS M.D. Performed By: #### B MP #### [facility] [address] Carbon dioxide, total [Moles /volume] in Serum or PlasmaOrdered By: Dalia Dennis on 11-27-2024 CO2 [Moles/Vol] 31.9 mmol/L High 21.0-31.0 [facility] Comment on above: Performed By: #### B MP #### [facility] [address] [place] [address] [place] Chloride [Moles/volume] in S zakia or PlasmaOrdered By: Dalia Dennis on 11-27-2024 Chloride [Moles/Vol] 101 mmol/L Normal 98-107 [facility] Comment on above: Performed By: #### B MP #### [facility] [address] [place] [address] [place] Creatinine [Mass/volume] in Serum or PlasmaOrdered By: Dalia Dennis on 11-27-2024 Creatinine [Mass/Vol] 0.53 mg/dL Low 0.60-1.20 [facility] Comment on above: Performed By: #### B MP #### [facility] [address] [place] [address] [place] Glucose [Mass/volume] in Ser um or PlasmaOrdered By: Dalia Dennis on 11-27-2024 Glucose [Mass/Vol] 72 mg/dL Normal 70-100 [facility] Comment on above: ADA recommended refe rence rangeRandom Glucose Reference Range is dependent on time and content of last meal. Glucose of more than 200 mg/dL in a nonstressed, ambulatory subject supports the diagnosis of Diabetes Mellitus. Result Comment: [place] om Glucose Reference Range is dependent on time and content of last meal. Glucose of more than 200 mg/dL in a nonstressed, ambulatory subject supports the diagnosis of Diabetes Mellitus. ADA recommended reference range Performed By: #### B MP #### [address] No Panel InformationOrdered By: Dalia Dennis on 11-27-2024 Estimated GFR (CKD-EPI) > 60.0 mL/Min [facility] Creatinine Clearance (Chem N/A [facility] Potassium [Moles/volume] in Serum or PlasmaOrdered By: Dalia Dennis on 11-27-2024 Potassium [Moles/Vol] 4.2 mmol/L Normal 3.5-5.1 [facility] Comment on above: Performed By: #### B MP #### [address] Serum or plasma anion gap de terminationOrdered By: Dalia Dennis on 11-27-2024 Anion gap [Moles/Vol] 10.3 mmol/L Normal 6.0-15.0 [facility] Comment on above: Performed By: #### B MP #### [address] Sodium [Moles/volume] in Ser um or PlasmaOrdered By: Dalia Dennis on 11-27-2024 Sodium [Moles/Vol] 139 mmol/L Normal 136-145 [facility] Comment on above: Performed By: #### B MP #### [address] Thyrotropin [Units/volume] i n Serum or PlasmaOrdered By: Kenyetta Dove on 11-27-2024 TSH Qn 1.89 m[IU]/L Normal 0.45-5.33 [facility] Comment on above: Result Comment: PERF ORMED BY: [place] [address] PATHOLOGIST LEAD PASTOR MARIUM AVALOS M.D. Performed By: #### C MP, UA, LIPID, TSH3, CBC, URMACRERAT, LILLIANA, FE and TIBC #### [facility] [address] Thyroxine (T4) free [Mass/vo lume] in Serum or PlasmaOrdered By: Kenyetta Dove on 11-27-2024 Free T4 [Mass/Vol] 0.90 ng/dL Normal 0.61-1.12 [facility] Comment on above: Performed By: #### C MP, UA, LIPID, TSH3, CBC, URMACRERAT, LILLIANA, FE and TIBC #### [facility] [address] Triiodothyronine (T3) Freeon 11-27-2024 Triiodothyronine (T3) Free 3.12 pg/mL Normal 2.50-3.90 [facility] Comment on above: Result Comment: PERF ORMED BY: [place] [address] PATHOLOGIST LEAD PASTOR MARIUM AVALOS M.D. Performed By: #### C MP, UA, LIPID, TSH3, CBC, URMACRERAT, LILLIANA, FE and TIBC #### [facility] [address] Triiodothyronine (T3) Free [ Mass/volume] in Serum or PlasmaOrdered By: Kenyetta Dove on 11-27-2024 Free T3 [Mass/Vol] 3.12 pg/mL 2.50-3.90 [facility] Urea nitrogen [Mass/volume] in Serum or PlasmaOrdered By: Dalia Dennis on 11-27-2024 Urea nitrogen [Mass/Vol] 9 mg/dL Normal 7-25 [facility] Comment on above: Performed By: #### B MP #### [address] Ambulatory Visit Summaryon 0 11-26-2024 Ambulatory Visit Summary Ambulatory Visit Summary STEFANIEGalenLUPE :1975 Visit Date:11/26/2024 Ambulatory Visit Instructions Your Diagnosis Overactive bladder Your Care Team Attending Physician - Donya OZUNA MD Primary Care Physician - MELISSA COON MD This Is Your Medications List Contact prescribing [...] Schedule the Following Appointments Follow Up with LAITH PELAYO, Donya Weller, URL When: Where: [address] [place] [id number]- Medications What How Much When Why Instructions [...] reflux dis (more content not included)... Normal [facility] Urology Office/Clinic Noteon 11-26-2024 Urology Office/Clinic [...] prophylaxis sent. Follow-up With When Contact Information LAITH PELAYO, Donya Weller, URL [address] [place] [phone]- Additional Instructions: schedule Botox Patient Education Botulinum Toxin Bladder Injection IShayna, personally scribed for Dr. Ozuna on 11/26/2024 10:47:25. . Documentation recorded by the scribe, Shayna Galaviz, accurately reflects the services(s) I performed and decisions made by me. Authenticated by Dr. Ozuna on 11/26/2024 11:02:18. Portions of this record may have been created with voice recognition artificial intelligence software, specifically [employer], [employer] and or [employer]. Substitutions may have occurred due to the [...] Shoulder pa (more content not included)... Normal [facility] Comment on above: Result Comment: Elec tronically Signed By: Donya OZUNA MD P\.br\Date and Time Signed: 11/26/24 11:03 EDT\.br\Electronically Co-Signed By: Shayna Galaviz P\.br\Date and Time Co-Signed: 11/26/24 10:47 EDT BNP ser/plasOrdered By: Dalia Dennis on 11-21-2024 Natriuretic peptide B (Bld) [Mass/Vol] 54.0 pg/mL Normal 5-100 [facility] Comment on above: Result Comment: PERF ORMED BY: [place] [address] PATHOLOGIST LEAD PASTOR MARIUM AVALOS M.D. Performed By: #### C MP, UA, LIPID, TSH3, CBC, URMACRERAT, LILLIANA, FE and TIBC #### [facility] [address] [place] [address] Basic Metabolic Panelon 10-29 GFR/1.73 sq M.predicted MDRD (S/P/Bld) [Vol rate/Area] mL/min/{1.73_m2} Normal [facility] Comment on above: Performed By: #### B MP #### [address] Calcium [Mass/volume] in Ser um or PlasmaOrdered By: Dalia Dennis on 11-21-2024 Calcium [Mass/Vol] 8.8 mg/dL Normal 8.6-10.3 [facility] Comment on above: Result Comment: PERF ORMED BY: [place] [address] PATHOLOGIST LEAD PASTOR MARIUM AVALOS M.D. Performed By: #### B MP #### [address] Carbon dioxide, total [Moles /volume] in Serum or PlasmaOrdered By: Dalia Dennis on 11-21-2024 CO2 [Moles/Vol] 29.8 mmol/L Normal 21.0-31.0 [facility] Comment on above: Performed By: #### B MP #### [facility] [address] [place] [address] [place] Chloride [Moles/volume] in S zakia or PlasmaOrdered By: Dalia Dennis on 11-21-2024 Chloride [Moles/Vol] 103 mmol/L Normal 98-107 [facility] Comment on above: Performed By: #### B MP #### [facility] [address] Creatinine [Mass/volume] in Serum or PlasmaOrdered By: Dalia Dennis on 11-21-2024 Creatinine [Mass/Vol] 0.50 mg/dL Low 0.60-1.20 [facility] Comment on above: Performed By: #### B MP #### [place] [address] [place] Glucose [Mass/volume] in Ser um or PlasmaOrdered By: Dalia Dennis on 11-21-2024 Glucose [Mass/Vol] 100 mg/dL Normal 70-100 [facility] Comment on above: ADA recommended refe rence rangeRandom Glucose Reference Range is dependent on time and content of last meal. Glucose of more than 200 mg/dL in a nonstressed, ambulatory subject supports the diagnosis of Diabetes Mellitus. Result Comment: [place] om Glucose Reference Range is dependent on time and content of last meal. Glucose of more than 200 mg/dL in a nonstressed, ambulatory subject supports the diagnosis of Diabetes Mellitus. ADA recommended reference range Performed By: #### B MP #### [facility] [address] [place], [place] [address] No Panel InformationOrdered By: Dalia Dennis on 11-21-2024 Estimated GFR (CKD-EPI) > 60.0 mL/Min [facility] Creatinine Clearance (Chem N/A [facility] Potassium [Moles/volume] in Serum or PlasmaOrdered By: Dalia Dennis on 11-21-2024 Potassium [Moles/Vol] 4.2 mmol/L Normal 3.5-5.1 [facility] Comment on above: Performed By: #### B MP #### [address] Serum or plasma anion gap de terminationOrdered By: Dalia Risdevora on 11-21-2024 Anion gap [Moles/Vol] 9.4 mmol/L Normal 6.0-15.0 [facility] Comment on above: Performed By: #### B MP #### [address] Sodium [Moles/volume] in Ser um or PlasmaOrdered By: Dalia Risaliti on 11-21-2024 Sodium [Moles/Vol] 138 mmol/L Normal 136-145 [facility] Comment on above: Performed By: #### B MP #### [address] Urea nitrogen [Mass/volume] in Serum or PlasmaOrdered By: Dalia Risalitamara on 11-21-2024 Urea nitrogen [Mass/Vol] 13 mg/dL Normal 7-25 [facility] Comment on above: Performed By: #### B MP #### [address] ECH echo transthoracicon ECH echo transthoracic [facility] Main [place] [address] [place] [address] Echocardiogram Signed Patient: Lupe Pickard MR#: [id number] : 1975 Acct:[id number] Age/Sex: 49 / F ADM Date: 11/09/24 Loc: Room: Type: [facility] Attending Dr: Tanner Menendez PA-C Ordering Provider: Tanenr Menendez PA-C Date of Service: 11/09/24/ ECH/ECH echo transthoracic: EDEMA, SOB Copies to: Ric Asher MD, [facility] Tanner Menendez PA-C BSA: 2.4 m2 BP: [...] 11/09/24 0858 Signed By: Ric Asher MD, [facility] 11/09/24 1644 Normal [facility] Adrenocorticotropic Hormone PLon 10-25-[address] 19.5 pg/mL Normal 7.2-63.3 [facility] Comment on above: Order Comment: Comme nt Pre-Cosyntropin Result Comment: ACTH reference interval for samples collected between 7 and 10 AM. Performed at: - [address] [id number] Cleaning Crew Member: Ramirez Ca PhD, Phone: [phone] PERFORMED BY: [place] [address] PATHOLOGIST LEAD PASTOR MARIUM AVALOS M.D. Performed By: #### C MP, UA, LIPID, TSH3, CBC, URMACRERAT, LILLIANA, FE and TIBC #### [facility] [address] Cortisol, ACTH Stimulationon 10-25-2024 Cortisol, ACTH Stimulation Normal [facility] Comment on above: Order Comment: Comme nt Pre-Cosyntropin, 30 60 min post Result Comment: [employer] 11.5 Col: 10/25/24 0827 Dominic 30Min 17.0 Col: 10/25/24 0920 Dominic 60Min 22.6 Col: 10/25/24 0947 PERFORMED BY: [place] [address] PATHOLOGIST LEAD PASTOR MARIUM AVALOS M.D. Performed By: #### C MP, UA, LIPID, TSH3, CBC, URMACRERAT, LILLIANA, FE and TIBC #### [facility] [address] No Panel InformationOrdered By: Kenyetta Dove on 10-25-2024 Cortisol Response to Stimulation See comment [facility] Comment on above: [employer] 11.5 Col: [...] aminotransferase [Enzymatic activity/volume] in Serum or Plasma [address] [place] [address] ALT [Catalytic activity/Vol] 15 U/L Normal [address] [place] [address] Comment on above: Performed By: #### C MP, UA, LIPID, TSH3, CBC, URMACRERAT, LILLIANA, FE and TIBC #### [facility] [address] Albumin [Mass/volume] in Ser um or Plasma by Bromocresol green (BCG) dye binding methoOrdered By: Tanner Menendez on 10-09-2024 Albumin BCG dye [Mass/Vol] Albumin [Mass/volume] in Serum or Plasma by Bromocresol green (BCG) dye binding metho 3.5-5.7 [facility] Albumin BCG dye [Mass/Vol] 3.7 g/dL 3.5-5.7 [facility] Alkaline phosphatase [Enzyma tic activity/volume] in Serum or PlasmaOrdered By: Summer Workman on 10-09-2024 ALP [Catalytic activity/Vol] Alkaline phosphatase [Enzymatic activity/volume] in Serum or Plasma 34-104 [facility] ALP [Catalytic activity/Vol] 51 U/L Normal 34-104 [facility] Comment on above: Result Comment: PERF ORMED BY: [place] [address] PATHOLOGIST LEAD PASTOR SYLVIA CRUZ M.D. Performed By: #### C MP, UA, LIPID, TSH3, CBC, URMACRERAT, LILLIANA, FE and TIBC #### [facility] [address] [place] [address] Aspartate aminotransferase [ Enzymatic activity/volume] in Serum or PlasmaOrdered By: Summer Workman on 10-09-2024 AST [Catalytic activity/Vol] Aspartate aminotransferase [Enzymatic activity/volume] in Serum or Plasma Low 13-39 [facility] AST [Catalytic activity/Vol] 12 U/L Low 13-39 [facility] Comment on above: Performed By: #### C MP, UA, LIPID, TSH3, CBC, URMACRERAT, LILLIANA, FE and TIBC #### [facility] [address] [place] [address] BNP ser/plasOrdered By: [facility] Work on 10-09-2024 Natriuretic peptide B (Bld) [Mass/Vol] 86.0 pg/mL Normal 5-100 [facility] Comment on above: Result Comment: PERF ORMED BY: [place] [address] PATHOLOGIST LEAD PASTOR SYLVIA CRUZ M.D. Performed By: #### C MP, UA, LIPID, TSH3, CBC, URMACRERAT, LILLIANA, FE and TIBC #### [facility] [address] [place] [address] Bilirubin.total [Mass/volume ] in Serum or PlasmaOrdered By: Summer Workman on 10-09-2024 Bilirubin [Mass/Vol] Bilirubin.total [Mass/volume] in Serum or Plasma 0.3-1.0 [facility] Bilirubin [Mass/Vol] 0.3 mg/dL Normal 0.3-1.0 [facility] Comment on above: Performed By: #### C MP, UA, LIPID, TSH3, CBC, URMACRERAT, LILLIANA, FE and TIBC #### [facility] [address] Calcium [Mass/volume] in Ser um or PlasmaOrdered By: Summer Workman on 10-09-2024 Calcium [Mass/Vol] Calcium [Mass/volume ] in Serum or Plasma 8.6-10.3 [facility] Calcium [Mass/Vol] 8.6 mg/dL Normal 8.6-10.3 [facility] Comment on above: Performed By: #### C MP, UA, LIPID, TSH3, CBC, URMACRERAT, LILLIANA, FE and TIBC #### [address] Carbon dioxide, total [Moles /volume] in Serum or PlasmaOrdered By: Summer Workman on 10-09-2024 CO2 [Moles/Vol] Carbon dioxide, tota l [Moles/volume] in Serum or Plasma High 21.0-31.0 [facility] CO2 [Moles/Vol] 31.1 mmol/L High 21.0-31.0 [facility] Comment on above: Performed By: #### C MP, UA, LIPID, TSH3, CBC, URMACRERAT, LILLIANA, FE and TIBC #### [address] Chloride [Moles/volume] in S zakia or PlasmaOrdered By: Summer Workman on 10-09-2024 Chloride [Moles/Vol] Chloride [Moles/vol ume] in Serum or Plasma 98-107 [facility] Chloride [Moles/Vol] 103 mmol/L Normal 98-107 [facility] Comment on above: Performed By: #### C MP, UA, LIPID, TSH3, CBC, URMACRERAT, LILLIANA, FE and TIBC #### [facility] [address] Comprehensive Metabolic Pane soniya 10-09-2024 Albumin [Mass/Vol] 3.7 g/dL Normal 3.5-5.7 [facility] Comment on above: Performed By: #### C MP, UA, LIPID, TSH3, CBC, URMACRERAT, LILLIANA, FE and TIBC #### [address] GFR/1.73 sq M.predicted MDRD (S/P/Bld) [Vol rate/Area] mL/min/{1.73_m2} Normal [facility] Comment on above: Performed By: #### C MP, UA, LIPID, TSH3, CBC, URMACRERAT, LILLIANA, FE and TIBC #### [address] Creatinine [Mass/volume] in Serum or PlasmaOrdered By: Summer Workman on 10-09-2024 Creatinine [Mass/Vol] Creatinine [Mass/v olume] in Serum or Plasma Low 0.60-1.20 [facility] Creatinine [Mass/Vol] 0.45 mg/dL Low 0.60-1.20 [facility] Comment on above: Performed By: #### C MP, UA, LIPID, TSH3, CBC, URMACRERAT, LILLIANA, FE and TIBC #### [address] Creatinine [Mass/volume] in UrineOrdered By: Summer Workman on 10-09-2024 Creatinine (U) [Mass/Vol] Creatinine [Mass/volume] in Urine [facility] Comment on above: No reference range e stablished Creatinine (U) [Mass/Vol] 34.00 mg/dL [facility] Comment on above: No reference range e stablished Globulin Calc (S) [Mass/Vol] Ordered By: Summer Workman on 10-09-2024 Globulin (S) [Mass/Vol] Serum globulin measurement by calculation (mass/volume) [facility] Glucose [Mass/volume] in Ser um or PlasmaOrdered By: Summer Workman on 10-09-2024 Glucose [Mass/Vol] Glucose [Mass/volume ] in Serum or Plasma High 70-100 [facility] Comment on above: ADA recommended refe rence rangeRandom Glucose Reference Range is dependent on time and content of last meal. Glucose of more than 200 mg/dL in a nonstressed, ambulatory subject supports the diagnosis of Diabetes Mellitus. Glucose [Mass/Vol] 110 mg/dL High 70-100 [facility] Comment on above: ADA recommended refe rence rangeRandom Glucose Reference Range is dependent on time and content of last meal. Glucose of more than 200 mg/dL in a nonstressed, ambulatory subject supports the diagnosis of Diabetes Mellitus. Result Comment: [place] om Glucose Reference Range is dependent on time and content of last meal. Glucose of more than 200 mg/dL in a nonstressed, ambulatory subject supports the diagnosis of Diabetes Mellitus. ADA recommended reference range Performed By: #### C MP, UA, LIPID, TSH3, CBC, URMACRERAT, LILLIANA, FE and TIBC #### [facility] [address] [place] [address] [place] MicroAlb Creat Ratio,Uon Creatinine, Urine (Random) 34.00 mg/dL Normal [facility] Comment on above: Result Comment: No r eference range established Performed By: #### C MP, UA, LIPID, TSH3, CBC, URMACRERAT, LILLIANA, FE and TIBC #### [facility] [address] Microalbumin/Creatini ne Ratio Not performed Normal 0.0-30.0 [facility] Comment on above: Result Comment: PERF ORMED BY: [place] [address] PATHOLOGIST LEAD PASTOR SYLVIA CRUZ M.D. Performed By: #### C MP, UA, LIPID, TSH3, CBC, URMACRERAT, LILLIANA, FE and TIBC #### [facility] [address] [place] [address] [place] Microalbumin [Mass/volume] i n UrineOrdered By: Summer Workman on 10-09-2024 Albumin DL <= 20 mg/L (U) [Mass/Vol] Microalbumin [Mass/volume] in Urine 0.0-1.8 [facility] Albumin DL <= 20 mg/L (U) [Mass/Vol] mg/dL Normal 0.0-1.8 [facility] Comment on above: Performed By: #### C MP, UA, LIPID, TSH3, CBC, URMACRERAT, LILLIANA, FE and TIBC #### [facility] [address] Natriuretic peptide B [Mass/ Vol]Ordered By: Summer Workman on 10-09-2024 Natriuretic peptide B (Bld) [Mass/Vol] BNP ser/plas 5-100 [facility] No Panel InformationOrdered By: Summer Workman on 10-09-2024 Estimated GFR (CKD-EPI) > 60.0 mL/Min [facility] Creatinine Clearance (Chem N/A [facility] Potassium [Moles/volume] in Serum or PlasmaOrdered By: Summer Workman on 10-09-2024 Potassium [Moles/Vol] Potassium [Moles/v olume] in Serum or Plasma 3.5-5.1 [facility] Potassium [Moles/Vol] 4.0 mmol/L Normal 3.5-5.1 [facility] Comment on above: Performed By: #### C MP, UA, LIPID, TSH3, CBC, URMACRERAT, LILLIANA, FE and TIBC #### [facility] [address] Protein [Mass/volume] in Ser um or PlasmaOrdered By: Summer Workman on 10-09-2024 Protein [Mass/Vol] Protein [Mass/volume ] in Serum or Plasma Low 6.4-8.9 [facility] Protein [Mass/Vol] 6.0 g/dL Low 6.4-8.9 [facility] Comment on above: Performed By: #### C MP, UA, LIPID, TSH3, CBC, URMACRERAT, LILLIANA, FE and TIBC #### [facility] [address] Serum globulin measurement b y calculation (mass/volume)Ordered By: Summer Workman on 10-09-2024 Globulin (S) [Mass/Vol] 2.3 g/dL Normal [facility] Comment on above: Performed By: #### C MP, UA, LIPID, TSH3, CBC, URMACRERAT, LILLIANA, FE and TIBC #### [facility] [address] Serum or plasma albumin/glob ulin mass ratioOrdered By: Summer Workman on 10-09-2024 Albumin/Globulin [Mass ratio] Serum or plasma albumin/globulin mass ratio [facility] Albumin/Globulin [Mass ratio] 1.6 {ratio} [facility] Comment on above: Performed By: #### C MP, UA, LIPID, TSH3, CBC, URMACRERAT, LILLIANA, FE and TIBC #### [facility] [address] Serum or plasma anion gap de terminationOrdered By: Summer Workman on 10-09-2024 Anion gap [Moles/Vol] Serum or plasma an ion gap determination 6.0-15.0 [facility] Anion gap [Moles/Vol] 8.9 mmol/L Normal 6.0-15.0 [facility] Comment on above: Performed By: #### C MP, UA, LIPID, TSH3, CBC, URMACRERAT, LILLIANA, FE and TIBC #### [facility] [address] Sodium [Moles/volume] in Ser um or PlasmaOrdered By: Summer Workman on 10-09-2024 Sodium [Moles/Vol] Sodium [Moles/volume ] in Serum or Plasma 136-145 [facility] Sodium [Moles/Vol] 139 mmol/L Normal 136-145 [facility] Comment on above: Performed By: #### C MP, UA, LIPID, TSH3, CBC, URMACRERAT, LILLIANA, FE and TIBC #### [facility] [address] Urea nitrogen [Mass/volume] in Serum or PlasmaOrdered By: Summer Workman on 10-09-2024 Urea nitrogen [Mass/Vol] Urea nitrogen [Mass/volume] in Serum or Plasma 12-21 [facility] Urea nitrogen [Mass/Vol] 9 mg/dL Normal 12-21 [facility] Comment on above: Performed By: #### C MP, UA, LIPID, TSH3, CBC, URMACRERAT, LILLIANA, FE and TIBC #### [facility] [address] Urine microalbumin/creatinin e mass ratioOrdered By: Summer Workman on 10-09-2024 Albumin/Creatinine DL <= 20 mg/L (U) [Mass ratio] Urine microalbumin/creatinine mass ratio [facility] Comment on above: Test not performed Albumin/Creatinine DL <= 20 mg/L (U) [Mass ratio] TNP [facility] Comment on above: Test not performed Cortisolon 08-29-2024 Cortisol 6.2 ug/dL Normal [facility] Comment on above: Result Comment: Refe rence range: AM 6 - 24 ug/dl PM <10 ug/dl [facility] undergraduate internship and method: [employer] UNICEL DXI, POLYCLONAL ANTIBODY CORTISOL ASSAY. PERFORMED BY: [place] [address] PATHOLOGIST LEAD PASTOR SYLVIA CRUZ M.D. Performed By: #### C MP, UA, LIPID, TSH3, CBC, URMACRERAT, LILLIANA, FE and TIBC #### [facility] [address] Cortisol [Mass/volume] in Se rum or PlasmaOrdered By: Kenyetta Dove on 08-29-2024 Cortisol [Mass/Vol] Random cortisol measurement [facility] Comment on above: [facility] undergraduate internship and method:[employer] UNICEL DXI, POLYCLONAL ANTIBODY CORTISOL ASSAY.Reference range: AM 6 - 24 ug/dl PM <10 ug/dl Cortisol [Mass/Vol] 6.2 ug/dL [facility] Comment on above: [facility] undergraduate internship and method:[employer] UNICEL DXI, POLYCLONAL ANTIBODY CORTISOL ASSAY.Reference range: AM 6 - 24 ug/dl PM <10 ug/dl Alanine aminotransferase [En zymatic activity/volume] in Serum or PlasmaOrdered By: Melissa Coon on 08-03-2024 ALT [Catalytic activity/Vol] Alanine aminotransferase [Enzymatic activity/volume] in Serum or Plasma 7-52 [facility] Albumin [Mass/volume] in Ser um or Plasma by Bromocresol green (BCG) dye binding methoOrdered By: Melissa Coon on 08-03-2024 Albumin BCG dye [Mass/Vol] Albumin [Mass/volume] in Serum or Plasma by Bromocresol green (BCG) dye binding metho 3.5-5.7 [facility] Alkaline phosphatase [Enzyma tic activity/volume] in Serum or PlasmaOrdered By: Melissa Coon on 08-03-2024 ALP [Catalytic activity/Vol] Alkaline phosphatase [Enzymatic activity/volume] in Serum or Plasma 34-104 [facility] Aspartate aminotransferase [ Enzymatic activity/volume] in Serum or PlasmaOrdered By: Melissa Coon on 08-03-2024 AST [Catalytic activity/Vol] Aspartate aminotransferase [Enzymatic activity/volume] in Serum or Plasma Low 13-39 [facility] Basophils Auto (Bld) [#/Vol] Ordered By: Melissa Coon on 08-03-2024 Basophils (Bld) [#/Vol] Automated basophil count 0.0-0.2 [facility] Basophils/100 WBC Auto (Bld) Ordered By: Melissa Coon on 08-03-2024 Basophils/100 WBC (Bld) Automated basophil % . [facility] Bilirubin.total [Mass/volume ] in Serum or PlasmaOrdered By: Melissa Coon on 08-03-2024 Bilirubin [Mass/Vol] Bilirubin.total [Mass/volume] in Serum or Plasma 0.3-1.0 [facility] Calcium [Mass/volume] in Ser um or PlasmaOrdered By: Melissa Coon on 08-03-2024 Calcium [Mass/Vol] Calcium [Mass/volume ] in Serum or Plasma 8.6-10.3 [facility] Carbon dioxide, total [Moles /volume] in Serum or PlasmaOrdered By: Melissa Coon on 08-03-2024 CO2 [Moles/Vol] Carbon dioxide, tota l [Moles/volume] in Serum or Plasma 21.0-31.0 [facility] Chloride [Moles/volume] in S zakia or PlasmaOrdered By: Melissa Coon on 08-03-2024 Chloride [Moles/Vol] Chloride [Moles/vol ume] in Serum or Plasma 98-107 [facility] Complete Blood Count Auto Di ffon 08-03-2024 Basophils (Bld) [#/Vol] 0.1 10*3/uL Normal 0.0-0.2 [facility] Comment on above: Result Comment: PERF ORMED BY: [place] [address] PATHOLOGIST LEAD PASTOR SYLVIA CRUZ M.D. Performed By: #### C MP, UA, LIPID, TSH3, CBC, URMACRERAT, LILLIANA, FE and TIBC #### [address] Basophils/100 WBC (Bld) 0.7 % Normal . [facility] Comment on above: Performed By: #### C MP, UA, LIPID, TSH3, CBC, URMACRERAT, LILLIANA, FE and TIBC #### [address] Eosinophils (Bld) [#/Vol] 0.1 10*3/uL Normal 0.0-0.45 [facility] Comment on above: Performed By: #### C MP, UA, LIPID, TSH3, CBC, URMACRERAT, LILLIANA, FE and TIBC #### [address] Eosinophils/100 WBC (Bld) 1.1 % Normal . [facility] Comment on above: Performed By: #### C MP, UA, LIPID, TSH3, CBC, URMACRERAT, LILLIANA, FE and TIBC #### [address] Erythrocyte distribution width (RBC) [Ratio] 14.3 % Normal 11.9-15.3 [facility] Comment on above: Performed By: #### C MP, UA, LIPID, TSH3, CBC, URMACRERAT, LILLIANA, FE and TIBC #### [address] Hematocrit (Bld) [Volume fraction] 41.4 % Normal 34.0-46.4 [facility] Comment on above: Performed By: #### C MP, UA, LIPID, TSH3, CBC, URMACRERAT, LILLIANA, FE and TIBC #### [address] Hemoglobin (Bld) [Mass/Vol] 13.9 g/dL Normal 11.8-15.4 [facility] Comment on above: Performed By: #### C MP, UA, LIPID, TSH3, CBC, URMACRERAT, LILLIANA, FE and TIBC #### [address] Lymphocytes (Bld) [#/Vol] 3.4 10*3/uL Normal 1.00-4.8 [facility] Comment on above: Performed By: #### C MP, UA, LIPID, TSH3, CBC, URMACRERAT, LILLIANA, FE and TIBC #### [address] Lymphocytes/100 WBC (Bld) 28.3 % Normal . [facility] Comment on above: Performed By: #### C MP, UA, LIPID, TSH3, CBC, URMACRERAT, LILLIANA, FE and TIBC #### [address] MCH (RBC) [Entitic mass] 30.6 pg Normal 24.7-34.3 [facility] Comment on above: Performed By: #### C MP, UA, LIPID, TSH3, CBC, URMACRERAT, LILLIANA, FE and TIBC #### [address] MCV (RBC) [Entitic vol] 90.8 fL Normal 80-100 [facility] Comment on above: Performed By: #### C MP, UA, LIPID, TSH3, CBC, URMACRERAT, LILLIANA, FE and TIBC #### [address] [place] [address] [place] Mean Corpuscular HGB Conc 33.7 g/dL Normal 32.0-35.0 [facility] Comment on above: Performed By: #### C MP, UA, LIPID, TSH3, CBC, URMACRERAT, LILLIANA, FE and TIBC #### [address] Monocytes (Bld) [#/Vol] 0.6 10*3/uL Normal 0.0-0.8 [facility] Comment on above: Performed By: #### C MP, UA, LIPID, TSH3, CBC, URMACRERAT, LILLIANA, FE and TIBC #### [address] Monocytes/100 WBC (Bld) 4.6 % Normal . [facility] Comment on above: Performed By: #### C MP, UA, LIPID, TSH3, CBC, URMACRERAT, LILLIANA, FE and TIBC #### [address] Neutrophils (Bld) [#/Vol] 7.9 10*3/uL High 1.8-7.7 [facility] Comment on above: Performed By: #### C MP, UA, LIPID, TSH3, CBC, URMACRERAT, LILLIANA, FE and TIBC #### [address] Neutrophils/100 WBC (Bld) 65.3 % Normal . [facility] Comment on above: Performed By: #### C MP, UA, LIPID, TSH3, CBC, URMACRERAT, LILLIANA, FE and TIBC #### [address] NRBC% 0.0 /100{WBC} Normal 0-0.5 [facility] Comment on above: Performed By: #### C MP, UA, LIPID, TSH3, CBC, URMACRERAT, LILLIANA, FE and TIBC #### [address] Platelet mean volume (Bld) [Entitic vol] 7.5 fL Normal 6.3-10.[address] [facility] Comment on above: Performed By: #### C MP, UA, LIPID, TSH3, CBC, URMACRERAT, LILLIANA, FE and TIBC #### [address] Platelets (Bld) [#/Vol] 395 10*3/uL Normal 150-450 [facility] Comment on above: Performed By: #### C MP, UA, LIPID, TSH3, CBC, URMACRERAT, LILLIANA, FE and TIBC #### [address] RBC (Bld) [#/Vol] 4.56 10*6/uL Normal 3.60-5.00 [facility] Comment on above: Performed By: #### C MP, UA, LIPID, TSH3, CBC, URMACRERAT, LILLIANA, FE and TIBC #### [address] WBC (Bld) [#/Vol] 12.1 10*3/uL High 3.8-11.6 [facility] Comment on above: Performed By: #### C MP, UA, LIPID, TSH3, CBC, URMACRERAT, LILLIANA, FE and TIBC #### [address] Comprehensive Metabolic Pane soniya 08-03-2024 Albumin [Mass/Vol] 3.7 g/dL Normal 3.5-5.7 [facility] Comment on above: Performed By: #### C MP, UA, LIPID, TSH3, CBC, URMACRERAT, LILLIANA, FE and TIBC #### [address] Albumin/Globulin [Mass ratio] 1.4 {ratio} Normal [facility] Comment on above: Performed By: #### C MP, UA, LIPID, TSH3, CBC, URMACRERAT, LILLIANA, FE and TIBC #### [place] [id number] [place] ALP [Catalytic activity/Vol] 47 U/L Normal 34-104 [facility] Comment on above: Performed By: #### C MP, UA, LIPID, TSH3, CBC, URMACRERAT, LILLIANA, FE and TIBC #### [address] ALT [Catalytic activity/Vol] 17 U/L Normal 7-52 [facility] Comment on above: Performed By: #### C MP, UA, LIPID, TSH3, CBC, URMACRERAT, LILLIANA, FE and TIBC #### [address] Anion gap [Moles/Vol] 10.1 mmol/L Normal 6.0-15.0 [facility] e [facility] Comment on above: Performed By: #### C MP, UA, LIPID, TSH3, CBC, URMACRERAT, LILLIANA, FE and TIBC #### [address] AST [Catalytic activity/Vol] 12 U/L Low 13-39 [facility] Comment on above: Performed By: #### C MP, UA, LIPID, TSH3, CBC, URMACRERAT, LILLIANA, FE and TIBC #### [address] Bilirubin [Mass/Vol] 0.5 mg/dL Normal 0.3-1.0 [facility] Comment on above: Performed By: #### C MP, UA, LIPID, TSH3, CBC, URMACRERAT, LILLIANA, FE and TIBC #### [address] Calcium [Mass/Vol] 8.7 mg/dL Normal 8.6-10.3 The [facility] Comment on above: Performed By: #### C MP, UA, LIPID, TSH3, CBC, URMACRERAT, LILLIANA, FE and TIBC #### [address] Chloride [Moles/Vol] 105 mmol/L Normal 98-107 [facility] Comment on above: Performed By: #### C MP, UA, LIPID, TSH3, CBC, URMACRERAT, LILLIANA, FE and TIBC #### [address] CO2 [Moles/Vol] 29.2 mmol/L Normal 21.0-31.0 The [facility] Comment on above: Performed By: #### C MP, UA, LIPID, TSH3, CBC, URMACRERAT, LILLIANA, FE and TIBC #### [address] Creatinine [Mass/Vol] 0.58 mg/dL Low 0.60-1.20 [facility] Comment on above: Performed By: #### C MP, UA, LIPID, TSH3, CBC, URMACRERAT, LILLIANA, FE and TIBC #### [address] GFR/1.73 sq M.predicted MDRD (S/P/Bld) [Vol rate/Area] mL/min/{1.73_m2} Normal [facility] Comment on above: Performed By: #### C MP, UA, LIPID, TSH3, CBC, URMACRERAT, LILLIANA, FE and TIBC #### [address] Globulin (S) [Mass/Vol] 2.6 g/dL Normal [facility] Comment on above: Performed By: #### C MP, UA, LIPID, TSH3, CBC, URMACRERAT, LILLIANA, FE and TIBC #### [address] Glucose [Mass/Vol] 98 mg/dL Normal 70-100 The [facility] Comment on above: Result Comment: [place] Glucose Reference Range is dependent on time and content of last meal. Glucose of more than 200 mg/dL in a nonstressed, ambulatory subject supports the diagnosis of Diabetes Mellitus. ADA recommended reference range Performed By: #### C MP, UA, LIPID, TSH3, CBC, URMACRERAT, LILLIANA, FE and TIBC #### [facility] [address] Potassium [Moles/Vol] 4.3 mmol/L Normal 3.5-5.1 [facility] Comment on above: Performed By: #### C MP, UA, LIPID, TSH3, CBC, URMACRERAT, LILLIANA, FE and TIBC #### [facility] [address] Protein [Mass/Vol] 6.3 g/dL Low 6.4-8.9 The [facility] Comment on above: Performed By: #### C MP, UA, LIPID, TSH3, CBC, URMACRERAT, LILLIANA, FE and TIBC #### [address] Sodium [Moles/Vol] 140 mmol/L Normal 136-145 The [facility] Comment on above: Performed By: #### C MP, UA, LIPID, TSH3, CBC, URMACRERAT, LILLIANA, FE and TIBC #### [address] Urea nitrogen [Mass/Vol] 14 mg/dL Normal 7-25 [facility] Comment on above: Performed By: #### C MP, UA, LIPID, TSH3, CBC, URMACRERAT, LILLIANA, FE and TIBC #### [address] Cortisolon 08-03-2024 Cortisol 3.3 ug/dL Normal [facility] Comment on above: Result Comment: Refe rence range: AM 6 - 24 ug/dl PM <10 ug/dl [facility] undergraduate internship and method: KAREN UNICEL DXI, POLYCLONAL ANTIBODY CORTISOL ASSAY. Performed By: #### C MP, UA, LIPID, TSH3, CBC, URMACRERAT, LILLIANA, FE and TIBC #### [address] Cortisol [Mass/volume] in Se rum or PlasmaOrdered By: Melissa Coon on 08-03-2024 Cortisol [Mass/Vol] Random cortisol measurement [facility] Comment on above: [facility] undergraduate internship and method:SidecarEL DXI, POLYCLONAL ANTIBODY CORTISOL ASSAY.Reference range: AM 6 - 24 ug/dl PM <10 ug/dl Creatinine [Mass/volume] in Serum or PlasmaOrdered By: Melissa [place] on 08-03-2024 Creatinine [Mass/Vol] Creatinine [Mass/v olume] in Serum or Plasma Low 0.60-1.20 [facility] Eosinophils Auto (Bld) [#/Vo l]Ordered By: [facility] on 08-03-2024 Eosinophils (Bld) [#/Vol] Automated eosinophil count 0.0-0.45 [facility] Eosinophils/100 WBC Auto (Bl d)Ordered By: [facility] on 08-03-2024 Eosinophils/100 WBC (Bld) Automated eosinophil % . [facility] Erythrocyte distribution wid th Auto (RBC) [Ratio]Ordered By: [facility] on 08-03-2024 Erythrocyte distribution width (RBC) [Ratio] Erythrocyte distribution width [Ratio] by Automated count 11.9-15.3 [facility] Estradiolon 08-03-2024 Estradiol <5.0 Normal . [facility] Comment on above: Result Comment: Adul t Female Range Follicular phase 12.5 - 166.0 Ovulation phase 85.8 - 498.0 Luteal phase 43.8 - 211.0 Postmenopausal <6.0 - 54.7 1st trimester 215.0 - >4300.0 [place] ECLIA methodology Performed at: - [facility] [id number] Cleaning Crew Member: Ramirez Ca PhD, Phone: [phone] PERFORMED BY: [place] [address] PATHOLOGIST LEAD PASTOR SYLVIA CRUZ M.D. Performed By: #### C MP, UA, LIPID, TSH3, CBC, URMACRERAT, LILLIANA, FE and TIBC #### [address] Ferritinon 08-03-2024 Ferritin [Mass/Vol] 100.7 ng/mL Normal 11.0-306.8 [facility] Comment on above: Performed By: #### C MP, UA, LIPID, TSH3, CBC, URMACRERAT, LILLIANA, FE and TIBC #### [facility] [address] [place] [address] [place] Ferritin [Mass/volume] in Se rum or PlasmaOrdered By: Melissa Coon on 08-03-2024 Ferritin [Mass/Vol] Ferritin [Mass/volum e] in Serum or Plasma 11.0-306.8 [facility] Follicle Stimulating Hormone on 08-03-2024 Follicle Stimulating Hormone 18.3 m[iU]/mL Normal [facility] Comment on above: Result Comment: FEMA LE NORMALS (PREMENOPAUSE) MID-FOLLICULAR PHASE: 3.9-8.8 mIU/mL MID-CYCLE PEAK: 4.5-22.5 mIU/mL MID-LUTEAL PHASE: 1.8-5.1 mIU/mL FEMALE NORMALS (POSTMENOPAUSE): 16.7-113.6 mIU/mL MALE NORMALS: 1.3-19.3 mIU/mL Performed By: #### C MP, UA, LIPID, TSH3, CBC, URMACRERAT, LILLIANA, FE and TIBC #### [facility] [address] [place] [address] [facility] Follitropin [Units/volume] i n Serum or PlasmaOrdered By: Melissa Coon on 08-03-2024 Follitropin Qn Follitropin [Units/v olume] in Serum or Plasma [facility] Comment on above: FEMALE NORMALS (GERHARD ENOPAUSE) MID-FOLLICULAR PHASE: 3.9-8.8 mIU/mL MID-CYCLE PEAK: 4.5-22.5 mIU/mL MID-LUTEAL PHASE: 1.8-5.1 mIU/mLFEMALE NORMALS (POSTMENOPAUSE): 16.7-113.6 mIU/mLMALE NORMALS: 1.3-19.3 mIU/mL Globulin Calc (S) [Mass/Vol] Ordered By: Melissa Coon on 08-03-2024 Globulin (S) [Mass/Vol] Serum globulin measurement by calculation (mass/volume) [facility] Glucose [Mass/volume] in Ser um or PlasmaOrdered By: Melissa Coon on 08-03-2024 Glucose [Mass/Vol] Glucose [Mass/volume ] in Serum or Plasma 70-100 [facility] Comment on above: ADA recommended refe rence rangeRandom Glucose Reference Range is dependent on time and content of last meal. Glucose of more than 200 mg/dL in a nonstressed, ambulatory subject supports the diagnosis of Diabetes Mellitus. Hematocrit Auto (Bld) [Volum e fraction]Ordered By: Melissa Coon on 08-03-2024 Hematocrit (Bld) [Volume fraction] Hematocrit [Volume Fraction] of Blood by Automated count 34.0-46.4 [facility] Hemoglobin [Mass/volume] in BloodOrdered By: Melissa Coon on 08-03-2024 Hemoglobin (Bld) [Mass/Vol] Hemoglobin [Mass/volume] in Blood 11.8-15.4 [facility] Iron [Mass/volume] in Serum or PlasmaOrdered By: Melissa Coon on 08-03-2024 Iron [Mass/Vol] Iron [Mass/volume] i n Serum or Plasma 50-212 [facility] Iron and TIBC Profileon % Iron Saturation 17.3 % Low 20-50 [facility] Comment on above: Performed By: #### C MP, UA, LIPID, TSH3, CBC, URMACRERAT, LILLIANA, FE and TIBC #### [facility] [address] Iron [Mass/Vol] 64 ug/dL Normal 50-212 The [facility] Comment on above: Performed By: #### C MP, UA, LIPID, TSH3, CBC, URMACRERAT, LILLIANA, FE and TIBC #### [facility] [address] [place] [id number] [facility] Total Iron Binding Capacity 371 ug/dL Normal 255-450 [facility] Comment on above: Performed By: #### C MP, UA, LIPID, TSH3, CBC, URMACRERAT, LILLIANA, FE and TIBC #### [facility] [address] [place] [id number] [facility] Transferrin [Mass/Vol] 265 mg/dL Normal 203-362 [facility] Comment on above: Performed By: #### C MP, UA, LIPID, TSH3, CBC, URMACRERAT, LILLIANA, FE and TIBC #### [facility] [address] [place] [address] [place] Leukocytes [#/volume] correc emily for nucleated erythrocytes in Blood by Automated counOrdered By: Melissa Coon on 08-03-2024 WBC corrected for nucl RBC Auto (Bld) [#/Vol] Leukocytes [#/volume] corrected for nucleated erythrocytes in Blood by Automated coun High 3.8-11.6 [facility] Luteinizing Hormoneon 2024 Luteinizing Hormone 29.5 m[iU]/mL Normal . Th e [facility] Comment on above: Result Comment: Adul t Female Range Follicular phase 2.4 - 12.6 Ovulation phase 14.0 - 95.6 Luteal phase 1.0 - 11.4 Postmenopausal 7.7 - 58.5 Performed By: #### C MP, UA, LIPID, TSH3, CBC, URMACRERAT, LILLIANA, FE and TIBC #### [facility] [address] [place] [address] [facility] Lymphocytes Auto (Bld) [#/Vo l]Ordered By: Melissa Coon on 08-03-2024 Lymphocytes (Bld) [#/Vol] Lymphocytes [#/volume] in Blood by Automated count 1.00-4.8 [facility] Lymphocytes/100 WBC Auto (Bl d)Ordered By: Melissa Coon on 08-03-2024 Lymphocytes/100 WBC (Bld) Lymphocytes/100 leukocytes in Blood by Automated count . [facility] MCH Auto (RBC) [Entitic mass ]Ordered By: Melissa Coon on 08-03-2024 MCH (RBC) [Entitic mass] MCH [Entitic mass] by Automated count 24.7-34.3 [facility] MCHC Auto (RBC) [Mass/Vol]Or dered By: Melissa Coon on 08-03-2024 MCHC (RBC) [Mass/Vol] MCHC [Mass/volume] by Automated count 32.0-35.0 [facility] MCV Auto (RBC) [Entitic vol] Ordered By: Melissa Coon on 08-03-2024 MCV (RBC) [Entitic vol] MCV [Entitic volume] by Automated count 80-100 [facility] Magnesiumon 08-03-2024 Magnesium [Mass/Vol] 1.9 mg/dL Normal 1.9-2.7 [facility] Comment on above: Performed By: #### C MP, UA, LIPID, TSH3, CBC, URMACRERAT, LLILIANA, FE and TIBC #### [facility] [address] Magnesium [Mass/volume] in S zakia or PlasmaOrdered By: Melissa Coon on 08-03-2024 Magnesium [Mass/Vol] Magnesium [Mass/vol ume] in Serum or Plasma 1.9-2.7 [facility] Monocytes Auto (Bld) [#/Vol] Ordered By: Melissa Coon on 08-03-2024 Monocytes (Bld) [#/Vol] Automated blood monocyte count 0.0-0.8 [facility] Monocytes/100 WBC Auto (Bld) Ordered By: Melissa Coon on 08-03-2024 Monocytes/100 WBC (Bld) Automated monocyte % . [facility] Neutrophils Auto (Bld) [#/Vo l]Ordered By: Melissa Coon on 08-03-2024 Neutrophils (Bld) [#/Vol] Neutrophils [#/volume] in Blood by Automated count High 1.8-7.7 [facility] Neutrophils/100 WBC Auto (Bl d)Ordered By: Melissa Coon on 08-03-2024 Neutrophils/100 WBC (Bld) Automated neutrophil % . [facility] No Panel InformationOrdered By: Melissa Coon on 08-03-2024 Estimated GFR (CKD-EPI) > 60.0 mL/Min [facility] Pharmacy Creatinine Clearance (Chem N/A [facility] Nucleated erythrocytes [Pres ence] in Blood by Automated countOrdered By: Melissa Coon on 08-03-2024 Nucleated RBC Auto Ql (Bld) Nucleated erythrocytes [Presence] in Blood by Automated count 0-0.5 [facility] Parathyrin.intact [Mass/volu me] in Serum or PlasmaOrdered By: Melissa Coon on 08-03-2024 Parathyrin.intact [Mass/Vol] Parathyrin.intact [Mass/volume] in Serum or Plasma [facility] Parathyroid Hormone Intacton 08-03-2024 Parathyroid Hormone Intact 48.1 pg/mL Normal [facility] Comment on above: Result Comment: PERF ORMED BY: [facility] [address] [place] [address] PATHOLOGIST LEAD PASTOR SYLVIA CRUZ M.D. Performed By: #### C MP, UA, LIPID, TSH3, CBC, URMACRERAT, LILLIANA, FE and TIBC #### [facility] [address] Platelet mean volume Auto (B ld) [Entitic vol]Ordered By: Melissa Coon on 08-03-2024 Platelet mean volume (Bld) [Entitic vol] Platelet mean volume [Entitic volume] in Blood by Automated count 6.3-10.7 [facility] Platelets Auto (Bld) [#/Vol] Ordered By: Melissa Coon on 08-03-2024 Platelets (Bld) [#/Vol] Platelets [#/volume] in Blood by Automated count 150-450 [facility] Potassium [Moles/volume] in Serum or PlasmaOrdered By: Melissa Coon on 08-03-2024 Potassium [Moles/Vol] Potassium [Moles/v olume] in Serum or Plasma 3.5-5.1 [facility] Protein [Mass/volume] in Ser um or PlasmaOrdered By: Melissa Coon on 08-03-2024 Protein [Mass/Vol] Protein [Mass/volume ] in Serum or Plasma Low 6.4-8.9 [facility] RBC Auto (Bld) [#/Vol]Ordere d By: Melissa Cono on 08-03-2024 RBC (Bld) [#/Vol] Erythrocytes [#/volu me] in Blood by Automated count 3.60-5.00 [facility] Serum or plasma albumin/glob ulin mass ratioOrdered By: Melissa Coon on 08-03-2024 Albumin/Globulin [Mass ratio] Serum or plasma albumin/globulin mass ratio [facility] Serum or plasma anion gap de terminationOrdered By: Melissa Coon on 08-03-2024 Anion gap [Moles/Vol] Serum or plasma an ion gap determination 6.0-15.0 [facility] Serum or plasma estradiol (E 2) measurement (mass/volume)Ordered By: Melissa Coon on 08-03-2024 E2 [Mass/Vol] Serum or plasma estr adiol (E2) measurement (mass/volume) . [facility] Comment on above: Adult Female Range F ollicular phase 12.5 - 166.0 Ovulation phase 85.8 - 498.0 Luteal phase 43.8 - 211.0 Postmenopausal <6.0 - 54.7 1st trimester 215.0 - >4300.0[place] ECLIA methodologyPerformed at: [email or web address] [id number] Director: Ramirez Ca PhD, Phone: [phone] Serum or plasma iron binding capacity measurement (mass/volume)Ordered By: Melissa Coon on 08-03-2024 Iron binding capacity [Mass/Vol] Iron binding capacity [Mass/volume] in Serum or Plasma 255-450 [facility] Serum or plasma iron saturat ion measurement (mass fraction)Ordered By: Melissa Coon on 08-03-2024 Iron saturation [Mass fraction] Iron saturation [Mass Fraction] in Serum or Plasma Low 20-50 [facility] Serum or plasma lutropin lisa surement (units/volume)Ordered By: Melissa Coon on 08-03-2024 Lutropin Qn Serum or plasma lutr opin measurement (units/volume) . [facility] Comment on above: Adult Female Range F ollicular phase 2.4 - 12.6 Ovulation phase 14.0 - 95.6 Luteal phase 1.0 - 11.4 Postmenopausal 7.7 - 58.5 Sodium [Moles/volume] in Ser um or PlasmaOrdered By: Melissa Coon on 08-03-2024 Sodium [Moles/Vol] Sodium [Moles/volume ] in Serum or Plasma 136-145 [facility] Thyroid Stimulating Hormoneo n 08-03-2024 TSH Qn 6.81 m[IU]/L High 0.45-5.[address] [facility] Comment on above: Performed By: #### C MP, UA, LIPID, TSH3, CBC, URMACRERAT, LILLIANA, FE and TIBC #### [facility] [address] Thyrotropin [Units/volume] i n Serum or PlasmaOrdered By: Melissa Coon on 08-03-2024 TSH Qn Thyrotropin [Units/v olume] in Serum or Plasma High 0.45-5.33 [facility] Transferrin [Mass/volume] in Serum or PlasmaOrdered By: Melissa Coon on 08-03-2024 Transferrin [Mass/Vol] Transferrin [Mass/volume] in Serum or Plasma 203-362 [facility] Urea nitrogen [Mass/volume] in Serum or PlasmaOrdered By: Melissa Coon on 08-03-2024 Urea nitrogen [Mass/Vol] Urea nitrogen [Mass/volume] in Serum or Plasma 7-25 [facility] Vitamin D 25 Hydroxy Totalon 08-03-2024 Vitamin D 25 Hydroxy Total 51.5 ng/mL Normal 30-100 [facility] Comment on above: Result Comment: QASIM MIN D STATUS 25(OH)VITAMIN D RANGE (ng/mL) Deficient <20 Insufficient 20 to <30 Sufficient 30 to 100 Reference: Adonay Espinosa, Shantelle HOLLOWAY, et al. Evaluation,treatment, and prevention of vitamin D deficiency; an Endocrine Society clinical practice guideline. JCEM. 2010; 96(7):1911-30. PERFORMED BY: [place] [address] PATHOLOGIST LEAD PASTOR SYLVIA CRUZ M.D. Performed By: #### C MP, UA, LIPID, TSH3, CBC, URMACRERAT, LILLIANA, FE and TIBC #### [address] Vitamin D+Metabolites [Mass/ volume] in Serum or PlasmaOrdered By: Melissa Coon on 08-03-2024 Vitamin D+Metabolites [Mass/Vol] Vitamin D+Metabolites [Mass/volume] in Serum or Plasma 30-100 [facility] Comment on above: VITAMIN D STATUS 25( [...] in Blood by Automated count High 3.8-11.6 [facility] XR pre/post mri xrayon 06-19 XR pre/post mri xray [facility] [place] [address] MRI Report Signed Patient: Lupe Pickard MR#: [id number] : 1975 Acct:[id number] Age/Sex: 49 / F ADM Date: 06/18/24 Loc: [facility] Room: Type: [facility] Attending Dr: Willian Jensen MD Copies to: Willian Jensen MD Ordering Provider: Willian Jensen MD Date of Service: 06/18/24 MR/MR lumbar spine wo con: M48.062 ([id number]) XR/XR pre/post mri xray: M48.062 MRI Lumbar [...] Rao Gresham M.D.06/19/2024 10:29 AM Dictation Location: [place] [address] Transcribed By: [facility] 06/19/24 1029 Dictated By: Rao Gresham DO 06/19/24 1022 Signed By: 06/19/24 1029 Normal [facility] Heart and Vascular Office/Cl inic Noteon 05-22-2024 Heart and Vascular Office/Clinic Note Heart and Vascular Office/Clinic Note Chief Complaint 6 mo f/u palps History of Present Illness Patient is a very pleasant 49-year-old obese nondiabetic female with a history of fibromyalgia, GERD, former smoker, quit more than 30 years ago, who was initially referred for palpitations. Patient was originally referred to [facility] with Dr. Benjamin; at her initial appointment, [...] therapeutic forman (more content not included)... Normal [facility] Comment on above: Result Comment: Elec tronically Signed By: Trudy PELAYO, Eldon Nguyen\.br\Date and Time Signed: 05/22/24 10:40 EST Influenza virus B Ag [Presen ce] in Upper respiratory specimen by Rapid immunoassayon 05-14-2024 FLUBV Ag IA.rapid Ql (Nph) Influenza virus B Ag [Presence] in Upper respiratory specimen by Rapid immunoassay [facility] No Panel Informationon 05-14 Influenza Type A (Rapid) Negative [facility] POC SARS CoV-2 Antigen Negative [facility] No Panel InformationOrdered By: Selina Lomas on 05-14-2024 Quick Strep (POC) [facility] Quick Strep (POC) [facility] Thyrotropin [Units/volume] i n Serum or PlasmaOrdered By: Kenyetta Dove on 02-21-2024 TSH Qn 4.01 m[IU]/L Normal 0.45-5.33 [facility] Comment on above: Result Comment: PERF ORMED BY: [place] [address] PATHOLOGIST LEAD PASTOR WENDY CLARK M.D. Performed By: #### C MP, UA, LIPID, TSH3, CBC, URMACRERAT, LILLIANA, FE and TIBC #### [address] Thyroxine (T4) free [Mass/vo lume] in Serum or PlasmaOrdered By: Kenyetta Dove on 02-21-2024 Free T4 [Mass/Vol] 1.10 ng/dL Normal 0.61-1.12 [facility] Comment on above: Performed By: #### C MP, UA, LIPID, TSH3, CBC, URMACRERAT, LILLIANA, FE and TIBC #### [facility] [address] [place] [address] Triiodothyronine (T3) Freeon 02-21-2024 Triiodothyronine (T3) Free 3.20 pg/mL Normal 2.50-3.90 [facility] Comment on above: Result Comment: PERF ORMED BY: [place] [address] PATHOLOGIST LEAD PASTOR WENDY CLARK M.D. Performed By: #### C MP, UA, LIPID, TSH3, CBC, URMACRERAT, LILLIANA, FE and TIBC #### [facility] [address] [place] [address] Triiodothyronine (T3) Free [ Mass/volume] in Serum or PlasmaOrdered By: Kenyetta Dove on 02-21-2024 Free T3 [Mass/Vol] 3.20 pg/mL 2.50-3.90 [facility] Alanine aminotransferase [En zymatic activity/volume] in Serum or PlasmaOrdered By: Dalia Dennis on 02-01-2024 ALT [Catalytic activity/Vol] 12 U/L Normal 7-52 [facility] Comment on above: Performed By: #### C MP, UA, LIPID, TSH3, CBC, URMACRERAT, LILLIANA, FE and TIBC #### [facility] [address] [place] [address] Albumin [Mass/volume] in Ser um or Plasma by Bromocresol green (BCG) dye binding methoOrdered By: Dalia Dennis on 02-01-2024 Albumin BCG dye [Mass/Vol] 3.8 g/dL 3.5-5.7 [facility] Alkaline phosphatase [Enzyma tic activity/volume] in Serum or PlasmaOrdered By: Dalia Dennis on 02-01-2024 ALP [Catalytic activity/Vol] 52 U/L Normal 34-104 [facility] Comment on above: Performed By: #### C MP, UA, LIPID, TSH3, CBC, URMACRERAT, LILLIANA, FE and TIBC #### [address] Aspartate aminotransferase [ Enzymatic activity/volume] in Serum or PlasmaOrdered By: Dalia Dennis on 02-01-2024 AST [Catalytic activity/Vol] 11 U/L Low 13-39 [facility] Comment on above: Performed By: #### C MP, UA, LIPID, TSH3, CBC, URMACRERAT, LILLIANA, FE and TIBC #### [address] Automated basophil %Ordered By: Dalia Dennis on 02-01-2024 Basophils/100 WBC (Bld) 0.5 % Normal . [facility] Comment on above: Performed By: #### C MP, UA, LIPID, TSH3, CBC, URMACRERAT, LILLIANA, FE and TIBC #### [address] Automated basophil countOrde red By: Dalia Dennis on 02-01-2024 Basophils (Bld) [#/Vol] 0.0 10*3/uL Normal 0.0-0.2 [facility] Comment on above: Result Comment: PERF ORMED BY: [place] [address] PATHOLOGIST LEAD PASTOR WENDY CLARK M.D. Performed By: #### C MP, UA, LIPID, TSH3, CBC, URMACRERAT, LILLIANA, FE and TIBC #### [address] Automated blood monocyte cou ntOrdered By: Dalia Dennis on 02-01-2024 Monocytes (Bld) [#/Vol] 0.4 10*3/uL Normal 0.0-0.8 [facility] Comment on above: Performed By: #### C MP, UA, LIPID, TSH3, CBC, URMACRERAT, LILLIANA, FE and TIBC #### [address] Automated eosinophil %Ordere d By: Dalia Dennis on 02-01-2024 Eosinophils/100 WBC (Bld) 1.3 % Normal . [facility] Comment on above: Performed By: #### C MP, UA, LIPID, TSH3, CBC, URMACRERAT, LILLIANA, FE and TIBC #### [facility] [address] Automated eosinophil countOr dered By: Dalia Dennis on 02-01-2024 Eosinophils (Bld) [#/Vol] 0.1 10*3/uL Normal 0.0-0.45 [facility] Comment on above: Performed By: #### C MP, UA, LIPID, TSH3, CBC, URMACRERAT, LILLIANA, FE and TIBC #### [address] Automated monocyte %Ordered By: Dalia Dennis on 02-01-2024 Monocytes/100 WBC (Bld) 4.8 % Normal . [facility] Comment on above: Performed By: #### C MP, UA, LIPID, TSH3, CBC, URMACRERAT, LILLIANA, FE and TIBC #### [address] Automated neutrophil %Ordere d By: Dalia Dennis on 02-01-2024 Neutrophils/100 WBC (Bld) 65.3 % Normal . [facility] Comment on above: Performed By: #### C MP, UA, LIPID, TSH3, CBC, URMACRERAT, LILLIANA, FE and TIBC #### [address] Bilirubin Test strip Ql (U)O rdered By: Dalia Dennis on 02-01-2024 Bilirubin Ql (U) Negative Negative [facility] Bilirubin.total [Mass/volume ] in Serum or PlasmaOrdered By: Dalia Dennis on 02-01-2024 Bilirubin [Mass/Vol] 0.5 mg/dL Normal 0.3-1.0 [facility] Comment on above: Performed By: #### C MP, UA, LIPID, TSH3, CBC, URMACRERAT, LILLIANA, FE and TIBC #### [facility] [address] CBC W Auto Differential pane l (Bld)on 02-01-2024 Basophils (Bld) [#/Vol] 0.0 10*3/uL 0.0 - 0.2 10*3/uL [facility] Basophils/100 WBC Manual cnt (Syn fld) 0.5 % . [facility] Eosinophils (Bld) [#/Vol] 0.1 10*3/uL 0.0 - 0.45 10*3/uL [facility] Eosinophils/100 WBC Manual cnt (Syn fld) 1.3 % . [facility] Erythrocyte distribution width (RBC) [Ratio] 14.6 % 11.9 - 15.3 % [facility] Hematocrit (Bld) [Volume fraction] 39.2 % 34.0 - 46.4 % [facility] Hemoglobin (Bld) [Mass/Vol] 13.3 g/dL 11.8 - 15.4 g/dL [facility] Lymphocytes (Bld) [#/Vol] 2.6 10*3/uL 1.00 - 4.8 10*3/uL [facility] Lymphocytes/100 WBC Manual cnt (Syn fld) 28.1 % . [facility] MCH (RBC) [Entitic mass] 30.7 pg 24.7 - 34.3 pg [facility] MCHC (RBC) [Mass/Vol] 34.0 g/dL 32.0 - 35.0 g/dL [facility] MCV (RBC) [Entitic vol] 90.1 fL 80 - 100 fL [facility] Monocytes (Bld) [#/Vol] 0.4 10*3/uL 0.0 - 0.8 10*3/uL [facility] Monocytes+Macrophages /100 WBC Manual cnt (Syn fld) 4.8 % . [facility] Neutrophils (Bld) [#/Vol] 6.0 10*3/uL 1.8 - 7.7 10*3/uL [facility] Neutrophils/100 WBC Manual cnt (Syn fld) 65.3 % . [facility] NRBC 0.1 /100{WBC} 0 - 0.5 /100{WBC} [facility] Platelet mean volume (Bld) [Entitic vol] 8.7 fL 6.3 - 10.7 fL [facility] Platelets (Bld) [#/Vol] 288 10*3/uL 150 - 450 10*3/uL [facility] RBC LM.HPF (Urine sed) [#/Area] 4.34 /[HPF] 3.60 - 5.00 [facility] WBC (Bld) [#/Vol] 9.2 10*3/uL 3.8 - 11.6 10*3/uL [facility] WBC LM.HPF (Urine sed) [#/Area] 9.2 10*3/uL 3.8 - 11.6 10*3/uL [facility], 1928–1983 Calcium [Mass/volume] in Ser um or PlasmaOrdered By: Dalia Dennis on 02-01-2024 Calcium [Mass/Vol] 8.5 mg/dL Low 8.6-10.3 [facility] Comment on above: Performed By: #### C MP, UA, LIPID, TSH3, CBC, URMACRERAT, LILLIANA, FE and TIBC #### [facility] [address] Carbon dioxide, total [Moles /volume] in Serum or PlasmaOrdered By: Dalia Dennis on 02-01-2024 CO2 [Moles/Vol] 27.8 mmol/L Normal 21.0-31.0 [facility] Comment on above: Performed By: #### C MP, UA, LIPID, TSH3, CBC, URMACRERAT, LILLIANA, FE and TIBC #### [facility] [address] [place] [address] [place] Chloride [Moles/volume] in S zakia or PlasmaOrdered By: Dalia Dennis on 02-01-2024 Chloride [Moles/Vol] 104 mmol/L Normal 98-107 [facility] Comment on above: Performed By: #### C MP, UA, LIPID, TSH3, CBC, URMACRERAT, LILLIANA, FE and TIBC #### [facility] [address] [place] [address] [place] Cholesterol [Mass/volume] in Serum or PlasmaOrdered By: Dalia Dennis on 02-01-2024 Cholesterol [Mass/Vol] 163 mg/dL Normal 140-200 [facility] Comment on above: Chol less than 200 m g/dl low riskChol 201-239 mg/dl borderline riskChol 240 mg/dl and greater high risk Result Comment: Chol less than 200 mg/dl low risk Chol 201-239 mg/dl borderline risk Chol 240 mg/dl and greater high risk Performed By: #### C MP, UA, LIPID, TSH3, CBC, URMACRERAT, LILLIANA, FE and TIBC #### [facility] [address] Cholesterol in LDL Calc [Mas s/Vol]Ordered By: Dalia Dennis on 02-01-2024 Cholesterol in LDL [Mass/Vol] 88 mg/dL 0-100 [facility] Comment on above: LDL ATP III CLASSIFI CATIONLDL less than 100 mg/dL OptimalLDL 100-129 mg/dL Near or above optimalLDL 130-159 mg/dL Borderline highLDL 160-189 mg/dL HighLDL greater than 189 mg/dL Very high Cholesterol in VLDL Calc [Ma ss/Vol]Ordered By: Dalia Dennis on 02-01-2024 Cholesterol in VLDL [Mass/Vol] 35 mg/dL [facility] Color of Urine by AutoOrdere d By: Dalia Dennis on 02-01-2024 Color (U) Light-yellow Normal Yellow [facility] Comment on above: Order Comment: Name Collection Type:: Clean-Voided Midstream Performed By: #### C MP, UA, LIPID, TSH3, CBC, URMACRERAT, LILLIANA, FE and TIBC #### [facility] [address] Complete Blood Count Auto Di ffon 02-01-2024 Mean Corpuscular HGB Conc 34.0 g/dL Normal 32.0-35.0 [facility] Comment on above: Performed By: #### C MP, UA, LIPID, TSH3, CBC, URMACRERAT, LILLIANA, FE and TIBC #### [facility] [address] NRBC% 0.1 /100{WBC} Normal 0-0.5 [facility] Comment on above: Performed By: #### C MP, UA, LIPID, TSH3, CBC, URMACRERAT, LILLIANA, FE and TIBC #### [address] Comprehensive Metabolic Pane soniya 02-01-2024 Albumin [Mass/Vol] 3.8 g/dL Normal 3.5-5.7 [facility] Comment on above: Performed By: #### C MP, UA, LIPID, TSH3, CBC, URMACRERAT, LILLIANA, FE and TIBC #### [address] GFR/1.73 sq M.predicted MDRD (S/P/Bld) [Vol rate/Area] mL/min/{1.73_m2} Normal [facility] Comment on above: Performed By: #### C MP, UA, LIPID, TSH3, CBC, URMACRERAT, LILLIANA, FE and TIBC #### [address] Creatinine [Mass/volume] in Serum or PlasmaOrdered By: Dalia Dennis on 02-01-2024 Creatinine [Mass/Vol] 0.50 mg/dL Low 0.60-1.20 [facility] Comment on above: Performed By: #### C MP, UA, LIPID, TSH3, CBC, URMACRERAT, LILLIANA, FE and TIBC #### [address] Creatinine [Mass/volume] in UrineOrdered By: Dalia Dennis on 02-01-2024 Creatinine (U) [Mass/Vol] 74.00 mg/dL [facility] Comment on above: No reference range e stablished Erythrocyte distribution wid th [Ratio] by Automated countOrdered By: Dalia Dennis on 02-01-2024 Erythrocyte distribution width (RBC) [Ratio] 14.6 % Normal 11.9-15.3 [facility] Comment on above: Performed By: #### C MP, UA, LIPID, TSH3, CBC, URMACRERAT, LILLIANA, FE and TIBC #### [facility] [address] Erythrocytes [#/volume] in B lood by Automated countOrdered By: Dalia Dennis on 02-01-2024 RBC (Bld) [#/Vol] 4.34 10*6/uL Normal 3.60-5.00 [facility] Comment on above: Performed By: #### C MP, UA, LIPID, TSH3, CBC, URMACRERAT, LILLIANA, FE and TIBC #### [facility] [address] Ferritin [Mass/volume] in Se rum or PlasmaOrdered By: Dalia Dennis on 02-01-2024 Ferritin [Mass/Vol] 52.8 ng/mL Normal 11.0-306.8 [facility] Comment on above: Performed By: #### C MP, UA, LIPID, TSH3, CBC, URMACRERAT, LILLIANA, FE and TIBC #### [facility] [address] Glucose [Mass/volume] in Ser um or PlasmaOrdered By: Dalia Dennis on 02-01-2024 Glucose [Mass/Vol] 108 mg/dL High 70-100 [facility] Comment on above: ADA recommended refe rence rangeRandom Glucose Reference Range is dependent on time and content of last meal. Glucose of more than 200 mg/dL in a nonstressed, ambulatory subject supports the diagnosis of Diabetes Mellitus. Result Comment: [place] om Glucose Reference Range is dependent on time and content of last meal. Glucose of more than 200 mg/dL in a nonstressed, ambulatory subject supports the diagnosis of Diabetes Mellitus. ADA recommended reference range Performed By: #### C MP, UA, LIPID, TSH3, CBC, URMACRERAT, LILLIANA, FE and TIBC #### [facility] [address] Glucose [Mass/volume] in Uri ne by Test stripOrdered By: Dalia Dennis on 02-01-2024 Glucose Test strip (U) [Mass/Vol] Normal mg/dL Normal [facility] Hematocrit [Volume Fraction] of Blood by Automated countOrdered By: Dalia Dennis on 02-01-2024 Hematocrit (Bld) [Volume fraction] 39.2 % Normal 34.0-46.4 [facility] Comment on above: Performed By: #### C MP, UA, LIPID, TSH3, CBC, URMACRERAT, LILLIANA, FE and TIBC #### [address] Hemoglobin Test strip Ql (U) Ordered By: Dalia Dennis on 02-01-2024 Hemoglobin Ql (U) Negative Negative [facility] Hemoglobin [Mass/volume] in BloodOrdered By: Dalia Dennis on 02-01-2024 Hemoglobin (Bld) [Mass/Vol] 13.3 g/dL Normal 11.8-15.4 [facility] Comment on above: Performed By: #### C MP, UA, LIPID, TSH3, CBC, URMACRERAT, LILLIANA, FE and TIBC #### [address] Iron [Mass/volume] in Serum or PlasmaOrdered By: Dalia Dennis on 02-01-2024 Iron [Mass/Vol] 88 ug/dL Normal 50-212 [facility] Comment on above: Performed By: #### C MP, UA, LIPID, TSH3, CBC, URMACRERAT, LILLIANA, FE and TIBC #### [address] Iron and TIBC Profileon % Iron Saturation 26.4 % Normal 20-50 [facility] Comment on above: Performed By: #### C MP, UA, LIPID, TSH3, CBC, URMACRERAT, LILLIANA, FE and TIBC #### [address] Total Iron Binding Capacity 333 ug/dL Normal 255-450 [facility] Comment on above: Performed By: #### C MP, UA, LIPID, TSH3, CBC, URMACRERAT, LILLIANA, FE and TIBC #### [place] [address] Iron binding capacity [Mass/ volume] in Serum or PlasmaOrdered By: Dalia Dennis on 02-01-2024 Iron binding capacity [Mass/Vol] 333 ug/dL 255-450 [facility] Iron saturation [Mass Fracti on] in Serum or PlasmaOrdered By: Dalai Dennis on 02-01-2024 Iron saturation [Mass fraction] 26.4 % 20-50 [facility] Ketones [Presence] in Urine by Test stripOrdered By: Dalia Dennis on 02-01-2024 Ketones Ql (U) Negative Normal Negative [facility] Comment on above: Order Comment: Name Collection Type:: Clean-Voided Midstream Performed By: #### C MP, UA, LIPID, TSH3, CBC, URMACRERAT, LILLIANA, FE and TIBC #### [address] Leukocyte esterase [Presence ] in Urine by Test stripOrdered By: Dalia Dennis on 02-01-2024 Leukocyte esterase Test strip Ql (U) Negative Normal Negative [facility] Comment on above: Order Comment: Name Collection Type:: Clean-Voided Midstream Performed By: #### C MP, UA, LIPID, TSH3, CBC, URMACRERAT, LILLIANA, FE and TIBC #### [address] Leukocytes [#/volume] correc emily for nucleated erythrocytes in Blood by Automated counOrdered By: Dalia Dennis on 02-01-2024 WBC corrected for nucl RBC Auto (Bld) [#/Vol] 9.2 10*3/uL 3.8-11.6 [facility] Leukocytes [#/volume] in Blo od by Automated countOrdered By: Dalia Dennis on 02-01-2024 WBC (Bld) [#/Vol] 9.2 10*3/uL Normal 3.8-11.6 [facility] Comment on above: Performed By: #### C MP, UA, LIPID, TSH3, CBC, URMACRERAT, LILLIANA, FE and TIBC #### [address] [place] [address] [place] Lipid Panelon 02-01-2024 LDL Cholesterol,Calculate d 88 mg/dL Normal 0-100 [facility] Comment on above: Result Comment: LDL ATP III CLASSIFICATION LDL less than 100 mg/dL Optimal LDL 100-129 mg/dL Near or above optimal LDL 130-159 mg/dL Borderline high LDL 160-189 mg/dL High LDL greater than 189 mg/dL Very high Performed By: #### C MP, UA, LIPID, TSH3, CBC, URMACRERAT, LILLIANA, FE and TIBC #### [facility] [address] Triglyceride w/Reflex 176 mg/dL High 0-149 [facility] Comment on above: Result Comment: TRIG ATP III CLASSIFICATION TRIG less than 150 mg/dL Normal TRIG 150-199 mg/dL Borderline high TRIG 200-500 mg/dL High TRIG greater than 500 mg/dL Very high Standard traceable to the Center for Disease Conrtrol and Prevention (CDC) test method. Performed By: #### C MP, UA, LIPID, TSH3, CBC, URMACRERAT, LILLIANA, FE and TIBC #### [address] VLDL CHOLESTEROL 35 mg/dL Normal [facility] Comment on above: Performed By: #### C MP, UA, LIPID, TSH3, CBC, URMACRERAT, LILLIANA, FE and TIBC #### [address] Lymphocytes [#/volume] in Bl ood by Automated countOrdered By: Dalia Dennis on 02-01-2024 Lymphocytes (Bld) [#/Vol] 2.6 10*3/uL Normal 1.00-4.8 [facility] Comment on above: Performed By: #### C MP, UA, LIPID, TSH3, CBC, URMACRERAT, LILLIANA, FE and TIBC #### [facility] [address] Lymphocytes/100 leukocytes i n Blood by Automated countOrdered By: Dalia Dennis on 02-01-2024 Lymphocytes/100 WBC (Bld) 28.1 % Normal . [facility] Comment on above: Performed By: #### C MP, UA, LIPID, TSH3, CBC, URMACRERAT, LILLIANA, FE and TIBC #### [facility] [address] MCH [Entitic mass] by Automa emily countOrdered By: Dalia Dennis on 02-01-2024 MCH (RBC) [Entitic mass] 30.7 pg Normal 24.7-34.3 [facility] Comment on above: Performed By: #### C MP, UA, LIPID, TSH3, CBC, URMACRERAT, LILLIANA, FE and TIBC #### [address] MCHC Auto (RBC) [Mass/Vol]Or dered By: Dalia Dennis on 02-01-2024 MCHC (RBC) [Mass/Vol] 34.0 g/dL 32.0-35.0 [facility] MCV [Entitic volume] by Auto mated countOrdered By: Dalia Dennis on 02-01-2024 MCV (RBC) [Entitic vol] 90.1 fL Normal 80-100 [facility] Comment on above: Performed By: #### C MP, UA, LIPID, TSH3, CBC, URMACRERAT, LILLIANA, FE and TIBC #### [address] MicroAlb Creat Ratio,Uon Creatinine, Urine (Random) 74.00 mg/dL Normal [facility] Comment on above: Result Comment: No r eference range established Performed By: #### C MP, UA, LIPID, TSH3, CBC, URMACRERAT, LILLIANA, FE and TIBC #### [address] Microalbumin/Creatini ne Ratio Not performed Normal 0.0-30.0 [facility] Comment on above: Result Comment: PERF ORMED BY: [place] [address] PATHOLOGIST LEAD PASTOR WENDY CLARK M.D. Performed By: #### C MP, UA, LIPID, TSH3, CBC, URMACRERAT, LILLIANA, FE and TIBC #### [facility] [address] Microalbumin [Mass/volume] i n UrineOrdered By: Dalia Dennis on 02-01-2024 Albumin DL <= 20 mg/L (U) [Mass/Vol] mg/dL Normal 0.0-1.8 [facility] Comment on above: Performed By: #### C MP, UA, LIPID, TSH3, CBC, URMACRERAT, LILLIANA, FE and TIBC #### [facility] [address] Microalbumin/Creatinine rati o panel (U)on 02-01-2024 Albumin [Mass/Vol] g/dL 0.0 - 1.8 [facility] Creatinine spec 2 (U) [Mass/Vol] 74.00 mg/dL [facility] Comment on above: No reference range e stablished MICROALBUMIN/CREATINI NE RATIO Not performed 0.0 - 30.0 [facility], 1928–1983 Neutrophils [#/volume] in Bl ood by Automated countOrdered By: Dalia Dennis on 02-01-2024 Neutrophils (Bld) [#/Vol] 6.0 10*3/uL Normal 1.8-7.7 [facility] Comment on above: Performed By: #### C MP, UA, LIPID, TSH3, CBC, URMACRERAT, LILLIANA, FE and TIBC #### [facility] [address] [place] [address] Nitrite Test strip Ql (U)Ord ered By: Dalia Dennis on 02-01-2024 Nitrite Ql (U) Negative Negative [facility] No Panel InformationOrdered By: Dalia Dennis on 02-01-2024 Estimated GFR (CKD-EPI) > 60.0 mL/Min [facility] Creatinine Clearance (Chem N/A [facility] Nucleated erythrocytes [Pres ence] in Blood by Automated countOrdered By: Dalia Dennis on 02-01-2024 Nucleated RBC Auto Ql (Bld) 0.1 /100{WBC} 0-0.5 [facility] Platelet mean volume [Entiti c volume] in Blood by Automated countOrdered By: Dalia Dennis on 02-01-2024 Platelet mean volume (Bld) [Entitic vol] 8.7 fL Normal 6.3-10.7 [facility] Comment on above: Performed By: #### C MP, UA, LIPID, TSH3, CBC, URMACRERAT, LILLIANA, FE and TIBC #### [address] Platelets [#/volume] in Bloo d by Automated countOrdered By: aDlia Dennis on 02-01-2024 Platelets (Bld) [#/Vol] 288 10*3/uL Normal 150-450 [facility] Comment on above: Performed By: #### C MP, UA, LIPID, TSH3, CBC, URMACRERAT, LILLIANA, FE and TIBC #### [facility] [address] [place] [address] Potassium [Moles/volume] in Serum or PlasmaOrdered By: Dalia Dennis on 02-01-2024 Potassium [Moles/Vol] 4.3 mmol/L Normal 3.5-5.1 [facility] Comment on above: Performed By: #### C MP, UA, LIPID, TSH3, CBC, URMACRERAT, LILLIANA, FE and TIBC #### [facility] [address] [place] [address] Protein Test strip (U) [Mass /Vol]Ordered By: Dalia Dennis on 02-01-2024 Protein (U) [Mass/Vol] Negative Negative [facility] Protein [Mass/volume] in Ser um or PlasmaOrdered By: Dalia Dennis on 02-01-2024 Protein [Mass/Vol] 6.0 g/dL Low 6.4-8.9 [facility] Comment on above: Performed By: #### C MP, UA, LIPID, TSH3, CBC, URMACRERAT, LILLIANA, FE and TIBC #### [address] Serum globulin measurement b y calculation (mass/volume)Ordered By: Dalia Dennis on 02-01-2024 Globulin (S) [Mass/Vol] 2.2 g/dL [facility] Comment on above: Performed By: #### C MP, UA, LIPID, TSH3, CBC, URMACRERAT, LILLIANA, FE and TIBC #### [facility] [address] Serum or plasma albumin/glob ulin mass ratioOrdered By: Dalia Dennis on 02-01-2024 Albumin/Globulin [Mass ratio] 1.7 {ratio} [facility] Comment on above: Performed By: #### C MP, UA, LIPID, TSH3, CBC, URMACRERAT, LILLIANA, FE and TIBC #### [address] Serum or plasma anion gap de terminationOrdered By: Dalia Dennis on 02-01-2024 Anion gap [Moles/Vol] 10.5 mmol/L Normal 6.0-15.0 [facility] Comment on above: Performed By: #### C MP, UA, LIPID, TSH3, CBC, URMACRERAT, LILLIANA, FE and TIBC #### [facility] [address] [place] [address] Serum or plasma high density lipoprotein (HDL) cholesterol measurementOrdered By: Dalia Dennis on 02-01-2024 Cholesterol in HDL [Mass/Vol] 40 mg/dL Normal 23-92 [facility] Comment on above: HDL CHOL ATP-III CLA SSIFICATION Cardiovascular RiskHDL > or equal to 60 mg/dL LOWHDL < 40 mg/dL HIGH Result Comment: HDL CHOL ATP-III CLASSIFICATION Cardiovascular Risk HDL > or equal to 60 mg/dL LOW HDL < 40 mg/dL HIGH Performed By: #### C MP, UA, LIPID, TSH3, CBC, URMACRERAT, LILLIANA, FE and TIBC #### [facility] [address] [place] [address] Serum or plasma total choles terol/high density lipoprotein (HDL) cholesterol mass ratOrdered By: Dalia Dennis on 02-01-2024 Cholesterol.total/Cho lesterol in HDL [Mass ratio] 4.1 {ratio} Normal <5.0 [facility] Comment on above: Performed By: #### C MP, UA, LIPID, TSH3, CBC, URMACRERAT, LILLIANA, FE and TIBC #### [facility] [address] [place] [address] [place] Sodium [Moles/volume] in Ser um or PlasmaOrdered By: Dalia Dennis on 02-01-2024 Sodium [Moles/Vol] 138 mmol/L Normal 136-145 [facility] Comment on above: Performed By: #### C MP, UA, LIPID, TSH3, CBC, URMACRERAT, LILLIANA, FE and TIBC #### [facility] [address] Specific gravity Test strip (U) [Rel density]Ordered By: Dalia Dennis on 02-01-2024 Specific gravity (U) [Rel density] 1.016 1.001-1.03 0 [facility] Thyrotropin [Units/volume] i n Serum or PlasmaOrdered By: Dalia Dennis on 02-01-2024 TSH Qn 1.71 m[IU]/L Normal 0.45-5.33 [facility] Comment on above: Result Comment: PERF ORMED BY: [place] [address] PATHOLOGIST LE[employer] PASTOR WENDY CLARK M.D. Performed By: #### C MP, UA, LIPID, TSH3, CBC, URMACRERAT, LILLIANA, FE and TIBC #### [facility] [address] [place] [address] [place] Transferrin [Mass/volume] in Serum or PlasmaOrdered By: Dalia Dennis on 02-01-2024 Transferrin [Mass/Vol] 238 mg/dL Normal 203-362 [facility] Comment on above: Performed By: #### C MP, UA, LIPID, TSH3, CBC, URMACRERAT, LILLIANA, FE and TIBC #### [facility] [address] [place] [address] [place] Triglyceride [Mass/volume] i n Serum or PlasmaOrdered By: Dalia Dennis on 02-01-2024 Triglyceride [Mass/Vol] 176 mg/dL High 0-149 [facility] Comment on above: TRIG ATP III CLASSIF ICATIONTRIG less than 150 mg/dL NormalTRIG 150-199 mg/dL Borderline highTRIG 200-500 mg/dL High TRIG greater than 500 mg/dL Very highStandard traceable to the Center for Disease Conrtrol and Prevention (CDC) test method. Urea nitrogen [Mass/volume] in Serum or PlasmaOrdered By: Dalia Dennis on 02-01-2024 Urea nitrogen [Mass/Vol] 10 mg/dL Normal 7-25 [facility] Comment on above: Performed By: #### C MP, UA, LIPID, TSH3, CBC, URMACRERAT, LILLIANA, FE and TIBC #### [facility] [address] [place] [address] Urinalysison 02-01-2024 Bilirubin,Urine Negative Normal Negative [facility] Comment on above: Order Comment: Name Collection Type:: Clean-Voided Midstream Performed By: #### C MP, UA, LIPID, TSH3, CBC, URMACRERAT, LILLIANA, FE and TIBC #### [facility] [address] [place] [address] [place] Glucose Ql (U) Normal Normal Normal [facility] Comment on above: Order Comment: Name Collection Type:: Clean-Voided Midstream Performed By: #### C MP, UA, LIPID, TSH3, CBC, URMACRERAT, LILLIANA, FE and TIBC #### [facility] [address] [place] [address] [place] Nitrite,Urine Negative Normal Negative [facility] Comment on above: Order Comment: Name Collection Type:: Clean-Voided Midstream Performed By: #### C MP, UA, LIPID, TSH3, CBC, URMACRERAT, LILLIANA, FE and TIBC #### [facility] [address] [place] [address] [place] Occult Blood,Urine Negative Normal Negative The [facility] Comment on above: Order Comment: Name Collection Type:: Clean-Voided Midstream Result Comment: PERF ORMED BY: [place] [address] PATHOLOGIST LEAD PASTOR WENDY CLARK M.D. Performed By: #### C MP, UA, LIPID, TSH3, CBC, URMACRERAT, LILLIANA, FE and TIBC #### [address] Protein,Urine Negative Normal Negative [facility] Comment on above: Order Comment: Name Collection Type:: Clean-Voided Midstream Performed By: #### C MP, UA, LIPID, TSH3, CBC, URMACRERAT, LILLIANA, FE and TIBC #### [address] Specificy [place],Urine 1.016 Normal 1.001-1.03 0 [facility] Comment on above: Order Comment: Name Collection Type:: Clean-Voided Midstream Performed By: #### C MP, UA, LIPID, TSH3, CBC, URMACRERAT, LILLIANA, FE and TIBC #### [address] Urobilinogen,Urine Normal Normal Normal [facility] Comment on above: Order Comment: Name Collection Type:: Clean-Voided Midstream Performed By: #### C MP, UA, LIPID, TSH3, CBC, URMACRERAT, LILLIANA, FE and TIBC #### [address] Urinalysis, manual onlyon Appearance (U) Clear Clear [facility] BILIRUBIN,URINE Negative Negative [facility] Color (U) Light-Yellow Yellow [facility] Glucose Ql (U) Normal Normal [facility] Ketones Ql (U) Negative Negative [facility] Leukocyte esterase Test strip Ql (U) Negative Negative [facility] NITRITE,URINE Negative Negative [facility] OCCULT BLOOD,URINE Negative Negative [facility] pH (U) 6.0 [pH] 5.0 - 9.0 [facility] PROTEIN,URINE Negative Negative [facility] SPECIFICY GRAVITY,URINE 1.016 1.001 - 1.030 [facility] UROBILINOGEN,URINE Normal Normal [facility] Name Collection Type :: Clean-Voided Midstream [facility] Urine appearanceOrdered By: Dalia Dennis on 02-01-2024 Appearance (U) Clear Normal Clear [facility] Comment on above: Order Comment: Name Collection Type:: Clean-Voided Midstream Performed By: #### C MP, UA, LIPID, TSH3, CBC, URMACRERAT, LILLIANA, FE and TIBC #### [facility] [address] [place] [address] Urine microalbumin/creatinin e mass ratioOrdered By: Dalia Dennis on 02-01-2024 Albumin/Creatinine DL <= 20 mg/L (U) [Mass ratio] TNP [facility] Comment on above: Test not performed Urobilinogen Test strip (U) [Mass/Vol]Ordered By: Dalia Dennis on 02-01-2024 Urobilinogen (U) [Mass/Vol] Normal mg/dL Normal [facility] pH of Urine by Test stripOrd ered By: Dalia Dennis on 02-01-2024 pH (U) 6.0 [pH] Normal 5.0-9.0 [facility] Comment on above: Order Comment: Name Collection Type:: Clean-Voided Midstream Performed By: #### C MP, UA, LIPID, TSH3, CBC, URMACRERAT, LILLIANA, FE and TIBC #### [facility] [address] [place] [address] MM screening mammo BI w/CADo n 01-20-2024 MM screening mammo BI w/CAD [facility] [place] [address] Mammography Report Signed Patient: Lupe Pickard MR#: [id number] : 1975 Acct:[id number] Age/Sex: 48 / F ADM Date: 01/20/24 Loc: [place] Room: Type: [facility] Attending Dr: Referral Self Copies to: Melissa Singh II, DO SELF,REFERRAL Ordering Provider: SELF,REFERRAL Date of Service: 08/23/24 MM/MM screening mammo BI w/CAD: SCREENING BILATERAL [...] Gresham M.D.01/20/2024 2:37 PM Dictation Location: [facility] Transcribed By: BOB 01/20/24 1437 Dictated By: Rao Gresham DO 01/20/24 1433 Signed By: 01/20/24 1437 Normal [facility] No Panel InformationOrdered By: Selina Lomas on 12-05-2023 COVID Antigen (POC) [facility] Ferritin [Mass/volume] in Se rum or PlasmaOrdered By: Melissa Singh on 07-28-2023 Ferritin [Mass/Vol] 180.6 ng/mL 11.0-306.8 [facility] Folate [Mass/volume] in Seru m or PlasmaOrdered By: Melissa Singh on 07-28-2023 Folate [Mass/Vol] 43.0 ng/mL >5.9 [facility] Comment on above: Folate reference ran ge: >5.9 ng/mlThe WHO technical consultation on folate and vitamin [id number] has determined that folate concentrations lessthan 4 ng/ml are considered deficient. Iron [Mass/volume] in Serum or PlasmaOrdered By: Melissa Singh on 07-28-2023 Iron [Mass/Vol] 100 ug/dL 50-212 [facility] Magnesium [Mass/volume] in S zakia or PlasmaOrdered By: Melissa Singh on 07-28-2023 Magnesium [Mass/Vol] 2.0 mg/dL 1.9-2.7 [facility] Thyrotropin [Units/volume] i n Serum or PlasmaOrdered By: Melissa Singh on 07-28-2023 TSH Qn 1.20 m[IU]/L 0.45-5.33 [facility] Vitamin B12 ser/plasOrdered By: Melissa Singh on 07-28-2023 Cobalamin (Vitamin B12) [Mass/Vol] 432 pg/mL 180-914 [facility] Vitamin D+Metabolites [Mass/ volume] in Serum or PlasmaOrdered By: Melissa Singh on 07-28-2023 Vitamin D+Metabolites [Mass/Vol] 32.9 ng/mL 30-100 [facility] Comment on above: VITAMIN D STATUS 25( OH)VITAMIN D RANGE (ng/mL) Deficient <20 Insufficient 20 to <30Sufficient 30 to 100Reference: Kirby MF,Adonya INMAN, Shantelle HOLLOWAY, et al. Evaluation,treatment, and prevention of vitamin D deficiency; an Endocrine Society clinical practice guideline. JCEM. 2010; 96(7):1911-30. Activated partial thrombopla stin time (aPTT) in platelet poor plasma by coagulation aOrdered By: Jorge Jarrett on 07-22-2023 aPTT Coag (PPP) [Time] 29.6 s 25.1-36.5 [facility] Comment on above: A hematocrit value g reater than 55% may lead to inaccurate results in coagulation testing. Patients having hematocrit values >55% require a special collection tube for coagulation studies. Please contact the laboratory at [phone] for redraw instructions. Bacterial blood cultureOrder ed By: Jorge Jarrett on 07-22-2023 Bacteria identified Cx Nom (Bld) NO GROWTH 5 DAYS [facility] Bacteria identified Cx Nom (Bld) NO GROWTH 5 DAYS [facility] Basophils Auto (Bld) [#/Vol] Ordered By: Jorge Jarrett on 07-22-2023 Basophils (Bld) [#/Vol] 0.1 10*3/uL 0.0-0.2 [facility] Basophils/100 WBC Auto (Bld) Ordered By: Jorge Jarrett on 07-22-2023 Basophils/100 WBC (Bld) 0.5 % . [facility] COVID CepheidOrdered By: Iris Jarrett on 07-22-2023 SARS-CoV-2 (COVID-19) Ab IA Ql Negative Negative [facility] Comment on above: This is a duplicate Project 10K Xpert Xpress CoV-2/Flu/RSV Plus RNA by RT-PCR result to be used for statistical tracking purpose only. SARS-CoV-2 (COVID-19) RNA CESAR+probe Ql (Unsp spec) [facility] SARS-CoV-2 (COVID-19) RNA CESAR+probe Ql (Unsp spec) [facility] Calcium [Mass/volume] in Ser um or PlasmaOrdered By: Jorge Jarrett on 07-22-2023 Calcium [Mass/Vol] 8.7 mg/dL 8.6-10.3 [facility] Carbon dioxide, total [Moles /volume] in Serum or PlasmaOrdered By: Jorge Jarrett on 07-22-2023 CO2 [Moles/Vol] 24.1 mmol/L 21.0-31.0 [facility] Chloride [Moles/volume] in S zakia or PlasmaOrdered By: Jorge Jarrett on 07-22-2023 Chloride [Moles/Vol] 104 mmol/L 98-107 [facility] Creatine kinase [Enzymatic a ctivity/volume] in Serum or PlasmaOrdered By: Jorge Jarrett on 07-22-2023 CK [Catalytic activity/Vol] 37 U/L 30-223 [facility] Creatinine [Mass/volume] in Serum or PlasmaOrdered By: Jorge Jarrett on 07-22-2023 Creatinine [Mass/Vol] 0.52 mg/dL 0.60-1.20 [facility] Eosinophils Auto (Bld) [#/Vo l]Ordered By: Jorge Jarrett on 07-22-2023 Eosinophils (Bld) [#/Vol] 0.0 10*3/uL 0.0-0.45 [facility] Eosinophils/100 WBC Auto (Bl d)Ordered By: Jorge Jarrett on 07-22-2023 Eosinophils/100 WBC (Bld) 0.3 % . [facility] Erythrocyte distribution wid th Auto (RBC) [Ratio]Ordered By: Jorge Jarrett on 07-22-2023 Erythrocyte distribution width (RBC) [Ratio] 14.9 % 11.9-15.3 [facility] Glucose [Mass/volume] in Ser um or PlasmaOrdered By: Jorge Jarrett on 07-22-2023 Glucose [Mass/Vol] 97 mg/dL 70-100 [facility] Comment on above: ADA recommended refe rence rangeRandom Glucose Reference Range is dependent on time and content of last meal. Glucose of more than 200 mg/dL in a nonstressed, ambulatory subject supports the diagnosis of Diabetes Mellitus. Hematocrit Auto (Bld) [Volum e fraction]Ordered By: Jorge Jarrett on 07-22-2023 Hematocrit (Bld) [Volume fraction] 41.0 % 34.0-46.4 [facility] Hemoglobin [Mass/volume] in BloodOrdered By: Jorge Jarrett on 07-22-2023 Hemoglobin (Bld) [Mass/Vol] 13.8 g/dL 11.8-15.4 [facility] INR in Platelet poor plasma by Coagulation assayOrdered By: Jorge Jarrett on 07-22-2023 INR Coag (PPP) [Relative time] 1.0 {INR} [facility] Comment on above: INR Therapeutic Rang e [...] on 07-22-2023 Lactate [Moles/Vol] 1.3 mmol/L 0.5-2.2 [facility] Leukocytes [#/volume] correc emily for nucleated erythrocytes in Blood by Automated counOrdered By: Jorge Jarrett on 07-22-2023 WBC corrected for nucl RBC Auto (Bld) [#/Vol] 9.9 10*3/uL 3.8-11.6 [facility] Lymphocytes Auto (Bld) [#/Vo l]Ordered By: Jorge Jarrett on 07-22-2023 Lymphocytes (Bld) [#/Vol] 0.9 10*3/uL 1.00-4.8 [facility] Lymphocytes/100 WBC Auto (Bl d)Ordered By: Jorge Jarrett on 07-22-2023 Lymphocytes/100 WBC (Bld) 8.7 % . [facility] MCH Auto (RBC) [Entitic mass ]Ordered By: Jorge Jarrett on 07-22-2023 MCH (RBC) [Entitic mass] 29.7 pg 24.7-34.3 [facility] MCHC Auto (RBC) [Mass/Vol]Or dered By: Jorge Jarrett on 07-22-2023 MCHC (RBC) [Mass/Vol] 33.7 g/dL 32.0-35.0 [facility] MCV Auto (RBC) [Entitic vol] Ordered By: Jorge Jarrett on 07-22-2023 MCV (RBC) [Entitic vol] 88.2 fL 80-100 [facility] Monocyte distribution width [Entitic volume] in Blood by AutomatedOrdered By: Jorge Jarrett on 07-22-2023 Monocyte distribution width Auto (Bld) [Entitic vol] 27.10 % 0.00-20.00 [facility] Comment on above: For adults in ED, MD W > 20.0 may be associated with a higher risk of sepsis during the first 12 hrs of hospital admission Monocytes Auto (Bld) [#/Vol] Ordered By: Jorge Jarrett on 07-22-2023 Monocytes (Bld) [#/Vol] 0.6 10*3/uL 0.0-0.8 [facility] Monocytes/100 WBC Auto (Bld) Ordered By: Jorge Jarrett on 07-22-2023 Monocytes/100 WBC (Bld) 6.2 % . [facility] Natriuretic peptide B [Mass/ Vol]Ordered By: Jorge Jarrett on 07-22-2023 Natriuretic peptide B (Bld) [Mass/Vol] 67.0 pg/mL 5-100 [facility] Neutrophils Auto (Bld) [#/Vo l]Ordered By: Jorge Jarrett on 07-22-2023 Neutrophils (Bld) [#/Vol] 8.3 10*3/uL 1.8-7.7 [facility] Neutrophils/100 WBC Auto (Bl d)Ordered By: Jorge Jarrett on 07-22-2023 Neutrophils/100 WBC (Bld) 84.3 % . [facility] No Panel InformationOrdered By: Jorge Jarrett on 07-22-2023 Estimated GFR (CKD-EPI) > 60.0 mL/Min [facility] Creatinine Clearance (Chem 184.90 [facility] Nucleated erythrocytes [Pres ence] in Blood by Automated countOrdered By: Jorge Jarrett on 07-22-2023 Nucleated RBC Auto Ql (Bld) 0.0 /100{WBC} 0-0.5 [facility] Platelet mean volume Auto (B ld) [Entitic vol]Ordered By: Jorge Jarrett on 07-22-2023 Platelet mean volume (Bld) [Entitic vol] 7.7 fL 6.3-10.7 [facility] Platelets Auto (Bld) [#/Vol] Ordered By: Jorge Jarrett on 07-22-2023 Platelets (Bld) [#/Vol] 347 10*3/uL 150-450 [facility] Potassium [Moles/volume] in Serum or PlasmaOrdered By: Jorge Jarrett on 07-22-2023 Potassium [Moles/Vol] 3.6 mmol/L 3.5-5.1 [facility] Prothrombin time (PT)Ordered By: Jorge Jarrett on 07-22-2023 PT Coag (PPP) [Time] 11.6 s 9.0-12.9 [facility] Comment on above: A hematocrit value g reater than 55% may lead to inaccurate results in coagulation testing. Patients having hematocrit values >55% require a special collection tube for coagulation studies. Please contact the laboratory at [phone] for redraw instructions. RBC Auto (Bld) [#/Vol]Ordere d By: Jorge Jarrett on 07-22-2023 RBC (Bld) [#/Vol] 4.64 10*6/uL 3.60-5.00 [facility] Serum or plasma anion gap de terminationOrdered By: Jorge Jarrett on 07-22-2023 Anion gap [Moles/Vol] 12.5 mmol/L 6.0-15.0 [facility] Sodium [Moles/volume] in Ser um or PlasmaOrdered By: Jorge Jarrett on 07-22-2023 Sodium [Moles/Vol] 137 mmol/L 136-145 [facility] Troponin I.cardiac [Mass/vol ume] in Serum or Plasma by Detection limit <= 0.01 ng/Ordered By: Jorge Jarrett on 07-22-2023 Troponin I.cardiac DL <= 0.01 ng/mL [Mass/Vol] < 2.3 pg/mL 0.0-15.0 [facility] Urea nitrogen [Mass/volume] in Serum or PlasmaOrdered By: Jorge Jarrett on 07-22-2023 Urea nitrogen [Mass/Vol] 6 mg/dL 7-25 [facility] WBC Auto (Bld) [#/Vol]Ordere d By: Jorge Jarrett on 07-22-2023 WBC (Bld) [#/Vol] 9.9 10*3/uL 3.8-11.6 [facility] CNPNon 07-08-2023 CNPN Telephone (RHEUMN) -- LUPE PICKARD ([id number]) 1975 F Date Time Provider Department 07/08/23 [...] times daily. - FE FUMARATE/CA CARB/VITAMIN D3 ([id number] FUMARATE ORAL) Take by mouth. - Multivitamin [...] Encounter Status:Closed [facility] Positive RxEye Other Quick Strepon 07-08-2023 S. pyogenes Org specific cx Ql (Throat) Positive RxEye Other Quick Strep RxEye Other CNPCaroline [facility] STEFANIELUPE Aaron ([id number]) 1975 F Date Time Provider Department 05/24/23 [...] times daily. - FE FUMARATE/CA CARB/VITAMIN D3 ([id number] FUMARATE ORAL) Take by mouth. - Multivitamin [...] Status:Closed by STEPHIE BRAMBILA on 05/24/23 Normal [facility] C3 SerPl-mCncon 05-19-2023 Complement C3 [Mass/Vol] 128 mg/dL Normal 86-166 [facility] Comment on above: Order Comment: Speci men Type: BLOOD SPECIMEN Ordering Facility: [facility] Address: [address] [place] [address] Performed By: #### V ITB6 #### [facility] CLIA [id number] [address] [place] [address] C4 SerPl-mCncon 05-19-2023 Complement C4 [Mass/Vol] 32 mg/dL Normal 13-46 [facility] Comment on above: Order Comment: Speci men Type: BLOOD SPECIMEN Ordering Facility: [facility] Address: [address] [place] [address] Performed By: #### V ITB6 #### [facility] [employer] [facility] CLIA [id number] [address] [place] [address] CBC W Auto Differential pane l (Bld)on 05-19-2023 Basophils (Bld) [#/Vol] 0.03 10*3/uL Normal <0.11 [facility] Comment on above: Order Comment: Speci men Type: BLOOD SPECIMEN Ordering Facility: [facility] Address: [address] [place] [address] Performed By: #### V ITB6 #### [facility] [employer] CLIA [id number] [address] [place] [address] Basophils/100 WBC (Bld) 0.3 % Normal [facility] Comment on above: Order Comment: Speci men Type: BLOOD SPECIMEN Ordering Facility: [facility] Address: [address] [place] [address] Performed By: #### V ITB6 #### [facility] [employer] CLIA [id number] [address] [place] [address] Differential cell count method Nom (Bld) Auto Normal [facility] Comment on above: Order Comment: Speci men Type: BLOOD SPECIMEN Ordering Facility: [facility] Address: [address] [place] [address] Performed By: #### V ITB6 #### [facility] CLIA [id number] [address] [place] [address] Eosinophils (Bld) [#/Vol] 0.09 10*3/uL Normal <0.46 [facility] Comment on above: Order Comment: Speci men Type: BLOOD SPECIMEN Ordering Facility: [facility] Address: [address] [place] [address] Performed By: #### V ITB6 #### [facility] CLIA [id number] [address] [place] [address] Eosinophils/100 WBC (Bld) 0.8 % Normal [facility] Comment on above: Order Comment: Speci men Type: BLOOD SPECIMEN Ordering Facility: [facility] Address: [address] [place] [address] Performed By: #### V ITB6 #### [facility] CLIA [id number] [address] [place] [address] Erythrocyte distribution width (RBC) [Ratio] 14.7 % Normal 11.5-15.0 [facility] Comment on above: Order Comment: Speci men Type: BLOOD SPECIMEN Ordering Facility: [facility] Address: [address] [place] [address] Performed By: #### V ITB6 #### [facility] [employer] IA [id number] [address] [place] [address] Hematocrit (Bld) [Volume fraction] 42.6 % Normal 36.0-46.0 [facility] Comment on above: Order Comment: Speci men Type: BLOOD SPECIMEN Ordering Facility: [facility] Address: [address] [place] [address] Performed By: #### V ITB6 #### [facility] [place] [id number] [address] [place] [address] Hemoglobin (Bld) [Mass/Vol] 14.2 g/dL Normal 11.5-15.5 [facility] Comment on above: Order Comment: Speci men Type: BLOOD SPECIMEN Ordering Facility: [facility] Address: [address] [place] [address] Performed By: #### V ITB6 #### [facility] CLIA [id number] [address] [place] [address] Immature granulocytes (Bld) [#/Vol] 0.04 10*3/uL Normal <0.10 [facility] Comment on above: Order Comment: Speci men Type: BLOOD SPECIMEN Ordering Facility: [facility] Address: [address] [place] [address] Performed By: #### V ITB6 #### [facility] CLIA [id number] [address] [place] [address] Immature granulocytes/100 WBC (Bld) 0.4 % Normal [facility] Comment on above: Order Comment: Speci men Type: BLOOD SPECIMEN Ordering Facility: [facility] Address: [address] [place] [address] Performed By: #### V ITB6 #### [facility] CLIA [id number] [address] [place] [address] Lymphocytes (Bld) [#/Vol] 3.03 10*3/uL Normal 1.00-4.00 [facility] Comment on above: Order Comment: Speci men Type: BLOOD SPECIMEN Ordering Facility: [facility] Address: [address] [place] [address] Performed By: #### V ITB6 #### [facility] CLIA [id number] [address] [place] [address] Lymphocytes/100 WBC (Bld) 28.3 % Normal [facility] Comment on above: Order Comment: Speci men Type: BLOOD SPECIMEN Ordering Facility: [facility] Address: [address] [place] [address] Performed By: #### V ITB6 #### [facility] CLIA [id number] [address] [place] [address] MCH (RBC) [Entitic mass] 29.2 pg Normal 26.0-34.0 [facility] Comment on above: Order Comment: Speci men Type: BLOOD SPECIMEN Ordering Facility: [facility] Address: [address] [place] [address] Performed By: #### V ITB6 #### [facility] CLIA [id number] [address] [place] [address] MCHC (RBC) [Mass/Vol] 33.3 g/dL Normal 30.5-36.0 [facility] Comment on above: Order Comment: Speci men Type: BLOOD SPECIMEN Ordering Facility: [facility] Address: [address] [place] [address] Performed By: #### V ITB6 #### [facility] CLIA [id number] [address] [place] [address] MCV (RBC) [Entitic vol] 87.5 fL Normal 80.0-100.0 [facility] Comment on above: Order Comment: Speci men Type: BLOOD SPECIMEN Ordering Facility: [facility] Address: [address] [place] [address] Performed By: #### V ITB6 #### [facility] CLIA [id number] [address] [place] [address] Monocytes (Bld) [#/Vol] 0.49 10*3/uL Normal <0.87 [facility] Comment on above: Order Comment: Speci men Type: BLOOD SPECIMEN Ordering Facility: [facility] Address: [address] [place] [address] Performed By: #### V ITB6 #### [facility] CLIA [id number] [address] [place] [address] Monocytes/100 WBC (Bld) 4.6 % Normal [facility] Comment on above: Order Comment: Speci men Type: BLOOD SPECIMEN Ordering Facility: [facility] Address: [address] [place] [address] Performed By: #### V ITB6 #### [facility] CLIA [id number] [address] [place] [address] Neutrophils (Bld) [#/Vol] 7.01 10*3/uL Normal 1.45-7.50 [facility] Comment on above: Order Comment: Speci men Type: BLOOD SPECIMEN Ordering Facility: [facility] Address: [address] [place] [address] Performed By: #### V ITB6 #### [facility] CLIA [id number] [address] [place] [address] Neutrophils/100 WBC (Bld) 65.6 % Normal [facility] Comment on above: Order Comment: Speci men Type: BLOOD SPECIMEN Ordering Facility: [facility] Address: [address] [place] [address] Performed By: #### V ITB6 #### [facility] CLIA [id number] [address] [place] [address] Nucleated RBC (Bld) [#/Vol] 10*3/uL Normal <0.01 [facility] Comment on above: Order Comment: Speci men Type: BLOOD SPECIMEN Ordering Facility: [facility] Address: [address] [place] [address] Performed By: #### V ITB6 #### [facility] CLIA [id number] [address] [place] [address] Nucleated RBC/100 WBC (Bld) [Ratio] 0.0 /100 WBC Normal [facility] Comment on above: Order Comment: Speci men Type: BLOOD SPECIMEN Ordering Facility: [facility] Address: [address] [place] [address] Performed By: #### V ITB6 #### [id number] [address] [place] [address] Platelet mean volume (Bld) [Entitic vol] 9.1 fL Normal 9.0-12.7 [facility] Comment on above: Order Comment: Speci men Type: BLOOD SPECIMEN Ordering Facility: [facility] Address: [address] [place] [address] Performed By: #### V ITB6 #### [facility] IA [id number] [address] [place] [address] Platelets (Bld) [#/Vol] 364 10*3/uL Normal 150-400 [facility] Comment on above: Order Comment: Speci men Type: BLOOD SPECIMEN Ordering Facility: [facility] Address: [address] [place] [address] Performed By: #### V ITB6 #### [facility] CLIA [id number] [address] [place] [address] RBC (Bld) [#/Vol] 4.87 10*6/uL Normal 3.90-5.20 [facility] Comment on above: Order Comment: Speci men Type: BLOOD SPECIMEN Ordering Facility: [facility] Address: [address] [place] [address] Performed By: #### V ITB6 #### [facility] CLIA [id number] [address] [place] [address] WBC (Bld) [#/Vol] 10.69 10*3/uL Normal 3.70-11.[address] [facility] Comment on above: Order Comment: Speci men Type: BLOOD SPECIMEN Ordering Facility: [facility] Address: [address] [place] [address] Performed By: #### V ITB6 #### [facility] CLIA [id number] [address] [place] [address] Centromere Ab IF Ql (S)on Centromere Ab Qn (S) <0.2 Normal <1.[address] [facility] Comment on above: Order Comment: Speci men Type: BLOOD SPECIMEN Ordering Facility: [facility] Address: [address] [place] [address] Result Comment: Anti -centromere antibody is used as in aid in diagnosis of systemic sclerosis. Clinical correlation is required. Test Methodology: Multiplex flow immunoassay. Performed By: #### 5 1775-5, 53390-4, 02597-5, 06350-8, 02119-5, 09200-8, 14828-8, 87929-7 #### [facility] CLIA [id number] [address] [place] [address] [place] CENTROMERE AB QUAL Negative Normal Negative [facility] Comment on above: Order Comment: Speci men Type: BLOOD SPECIMEN Ordering Facility: [facility] Address: [address] [place] [address] Performed By: #### 5 1775-5, 23333-4, 86482-6, 71979-0, 45874-0, 77296-8, 95299-2, 50348-8 #### [facility] CLIA [id number] [address] [place] [address] [place] Chromatin Ab Qnon 05-19-2023 CHROMATIN AB QUAL Negative Normal Negative [facility] Comment on above: Order Comment: Speci men Type: BLOOD SPECIMEN Ordering Facility: [facility] Address: [address] [place] [address] Performed By: #### 5 1775-5, 94050-1, 77835-1, 75035-4, 54640-1, 71029-9, 95475-8, 87709-0 #### [facility] CLIA [id number] [address] [place], [place] [address] [place] Chromatin Ab SerPl-aCncon Chromatin Ab Qn <0.2 Normal <1.0 [facility] Comment on above: Order Comment: Speci men Type: BLOOD SPECIMEN Ordering Facility: [facility] Address: [address] [place] [address] Result Comment: Test Methodology: Multiplex flow immunoassay. Performed By: #### 5 1775-5, 52477-0, 94401-6, 94471-4, 21294-1, 71231-5, 57768-7, 97488-4 #### [facility] CLIA [id number] [address] [place] [address] [place] Comprehensive metabolic 2000 panelon 05-19-2023 Albumin [Mass/Vol] 4.1 g/dL Normal 3.9-4.9 [facility] Comment on above: Order Comment: Speci men Type: BLOOD SPECIMEN Ordering Facility: [facility] Address: [address] [place] [address] Performed By: #### V ITB6 #### [facility] [employer] CLIA [id number] [address] [place] [address] ALP [Catalytic activity/Vol] 62 U/L Normal 34-123 [facility] Comment on above: Order Comment: Speci men Type: BLOOD SPECIMEN Ordering Facility: [facility] Address: [address] [place] [address] Performed By: #### V ITB6 #### [facility] CLIA [id number] [address] [place] [address] ALT [Catalytic activity/Vol] 19 U/L Normal 7-38 [facility] Comment on above: Order Comment: Speci men Type: BLOOD SPECIMEN Ordering Facility: [facility] Address: [address], [place] [address] Performed By: #### V ITB6 #### [facility] CLIA [id number] [address] [place] [address] Anion gap [Moles/Vol] 9 mmol/L Normal 9-18 [facility] Comment on above: Order Comment: Speci men Type: BLOOD SPECIMEN Ordering Facility: [facility] Address: [address] [place] [address] Performed By: #### V ITB6 #### [facility] CLIA [id number] [address] [place] [address] AST [Catalytic activity/Vol] 10 U/L Low 13-35 [facility] Comment on above: Order Comment: Speci men Type: BLOOD SPECIMEN Ordering Facility: [facility] Address: [address] [place] [address] Performed By: #### V ITB6 #### [facility] CLIA [id number] [address] [place] [address] Bilirubin [Mass/Vol] 0.2 mg/dL Normal 0.2-1.[address] [facility] Comment on above: Order Comment: Speci men Type: BLOOD SPECIMEN Ordering Facility: [facility] Address: [address] [place] [address] Performed By: #### V ITB6 #### [facility] CLIA [id number] [address] [place] [address] Calcium [Mass/Vol] 9.2 mg/dL Normal 8.5-10.2 [facility] Comment on above: Order Comment: Speci men Type: BLOOD SPECIMEN Ordering Facility: [facility] Address: [address] [place] [address] Performed By: #### V ITB6 #### [facility] CLIA [id number] [address] [place] [address] Chloride [Moles/Vol] 106 mmol/L High 97-[address] [facility] Comment on above: Order Comment: Speci men Type: BLOOD SPECIMEN Ordering Facility: [facility] Address: [address] [place] [address] Performed By: #### V ITB6 #### [facility] CLIA [id number] [address] [place] [address] CO2 [Moles/Vol] 27 mmol/L Normal 22-30 [facility] Comment on above: Order Comment: Aldoi men Type: BLOOD SPECIMEN Ordering Facility: [facility] Address: [address] [place] [address] Performed By: #### V ITB6 #### [facility] [place] [id number] [address] [place] [address] Creatinine [Mass/Vol] 0.65 mg/dL Normal 0.58-0.96 [facility] Comment on above: Order Comment: Speci men Type: BLOOD SPECIMEN Ordering Facility: [facility] Address: [address] [place] [address] Performed By: #### V ITB6 #### [facility] [employer] [place] [id number] [address] [place] [address] Creatinine and Glomerular filtration rate.predicted panel (S/P/Bld) 110 mL/min/1.73m??? Normal >=60 [facility] Comment on above: Order Comment: Speci men Type: BLOOD SPECIMEN Ordering Facility: [facility] Address: [address] [place] [address] Result Comment: Anne mated Glomerular Filtration Rate [...] Performed By: #### V ITB6 #### [facility] [employer] [place] [id number] [address] [place] [address] Glucose [Mass/Vol] 105 mg/dL High 74-99 [facility] Comment on above: Order Comment: Aldoi men Type: BLOOD SPECIMEN Ordering Facility: [facility] Address: [address] [place] [address] Result Comment: The [place] Diabetes [employer] (ADA) provides guidance for cutoff [...] Standards of Medical Care in Diabetes 2016, [place] [employer]. Diabetes Care. 2016.39(Suppl 1). Performed By: #### V ITB6 #### [facility] CLIA [id number] [address] [place] [address] Potassium [Moles/Vol] 4.3 mmol/L Normal 3.7-5.1 [facility] Comment on above: Order Comment: Speci men Type: BLOOD SPECIMEN Ordering Facility: [facility] Address: [address] [place] [address] Performed By: #### V ITB6 #### [facility] CLIA [id number] [address] [place] [address] Protein [Mass/Vol] 6.7 g/dL Normal 6.3-8.0 [facility] Comment on above: Order Comment: Speci men Type: BLOOD SPECIMEN Ordering Facility: [facility] Address: [address] [place] [address] Performed By: #### V ITB6 #### [facility] CLIA [id number] [address] [place] [address] Sodium [Moles/Vol] 142 mmol/L Normal 136-144 [facility] Comment on above: Order Comment: Speci men Type: BLOOD SPECIMEN Ordering Facility: [facility] Address: [address] [place] [address] Performed By: #### V ITB6 #### [facility] CLIA [id number] [address] [place] [address] Urea nitrogen [Mass/Vol] 17 mg/dL Normal 7-21 [facility] Comment on above: Order Comment: Speci men Type: BLOOD SPECIMEN Ordering Facility: [facility] Address: [address] [place] [address] Performed By: #### V ITB6 #### [facility] CLIA [id number] [address] [place] [address] DNA ANTIBODY DS BLDon 2022 DNA ANTIBODY 25 IU/mL Normal <=200 [facility] Comment on above: Order Comment: Speci men Type: BLOOD SPECIMEN Ordering Facility: [facility] Address: [address] [place] [address] Performed By: #### V ITB6 #### [facility] CLIA [id number] [address] [place] [address] DNA ANTIBODY QUALITATIVE INTERPRETATION Negative Normal Negative [facility] Comment on above: Order Comment: Speci men Type: BLOOD SPECIMEN Ordering Facility: [facility] Address: [address] [place] [address] Performed By: #### V ITB6 #### [id number] [address] [place] [address] [place]ARC[place] Jo1 Ab Ser-aCncon 2022 Elsa-1 extractable nuclear Ab Qn (S) <0.2 Normal <1.0 [facility] Comment on above: Order Comment: Speci men Type: BLOOD SPECIMEN Ordering Facility: [facility] Address: [address] [place] [address] Performed By: #### 5 1775-5, 57816-5, 49030-3, 72865-6, 82235-5, 67869-8, 97077-7, 75137-7 #### [facility] CLIA [id number] [facility] [address] [address] [place] MARCIO SAP BW BI DEVELOPER Ab Ser-aCncon 2022 Ribonucleoprotein extractable nuclear Ab Qn (S) <0.2 Normal <1.0 [facility] Comment on above: Order Comment: Speci men Type: BLOOD SPECIMEN Ordering Facility: [facility] Address: [address] [place] [address] Performed By: #### 5 1775-5, 94292-4, 70662-3, 38191-6, 77077-9, 41620-1, 96593-6, 39753-4 #### [facility] CLIA [id number] [address] [address] [place] Ribonucleoprotein extractable nuclear Ab Qn (S) 0.2 AI Normal <1.0 [facility] Comment on above: Order Comment: Speci men Type: BLOOD SPECIMEN Ordering Facility: [facility] Address: [address] [place] [address] Performed By: #### V ITB6 #### [facility] CLIA [id number] [address] [place] [address] [place] SM IgG Ser-aCncon 2022 Lobo extractable nuclear IgG Qn (S) <0.2 Normal <1.0 [facility] Comment on above: Order Comment: Speci men Type: BLOOD SPECIMEN Ordering Facility: [facility] Address: [address] [place] [address] Performed By: #### 5 1775-5, 28682-9, 82279-0, 96907-2, 60910-9, 61516-2, 55726-8, 74613-2 #### [facility] CLIA [id number] [address] [place] [address] [place] MARCIO SS-A Ab Ser-aCncon 05-19 Sjogrens syndrome-A extractable nuclear Ab Qn (S) <0.2 Normal <1.0 [facility] Comment on above: Order Comment: Speci men Type: BLOOD SPECIMEN Ordering Facility: [facility] Address: [address] [place] [address] Result Comment: Test Methodology: Multiplex flow immunoassay. Performed By: #### 5 1775-5, 12483-0, 38948-3, 54333-3, 16649-8, 82050-4, 70867-5, 62159-6 #### [facility] CLIA [id number] [address] [place] [address] [place] MARCIO SS-B Ab Ser-aCncon 05-19 Sjogrens syndrome-B extractable nuclear Ab Qn (S) <0.2 Normal <1.0 [facility] Comment on above: Order Comment: Speci men Type: BLOOD SPECIMEN Ordering Facility: [facility] Address: [address] [place] [address] Result Comment: Anti -SSB (anti-La) antibody is used as an aid in diagnosis of a variety of systemic autoimmune diseases, especially for Sjogren's syndrome and systemic lupus erythematosus. Clinical correlation is required. Test Methodology: Multiplex flow immunoassay. Performed By: #### 5 1775-5, 37454-0, 40012-9, 32690-3, 97396-8, 67568-5, 08119-0, 29929-1 #### [facility] CLIA [id number] [address] [place] [address] [place] Folate SerPl-ncon 05-19-20 23 Folate [Mass/Vol] 13.0 ng/mL Normal >4.7 [facility] Comment on above: Order Comment: Speci denisa Type: BLOOD SPECIMEN Ordering Facility: [facility] Address: [address] [place] [address] Performed By: #### V IT #### [facility] [id number] [address] [place] [address] Elsa-1 extractable nuclear Ab Qn (S)on 05-19-2023 ELSA 1 ANTIBODY QUAL Negative Normal Negative [facility] Comment on above: Order Comment: Speci denisa Type: BLOOD SPECIMEN Ordering Facility: [facility] Address: [address] [place] [address] Result Comment: Anti -ELSA-1 antibody is used as an aid in diagnosis of polymyositis and dermatomyositis especially with pulmonary involvement. A negative result cannot rule out polymyositis or dermatomyositis. Clinical correlation is required. Test Methodology: Multiplex flow immunoassay. Performed By: #### 5 1775-5, 36843-0, 41645-8, 16393-1, 25849-3, 03441-8, 82518-8, 72850-7 #### [facility] CLIA [id number] [facility] [address] [address] [place] Ribonucleoprotein extractabl e nuclear Ab Qn (S)on 12-21-2023 ANTI-SAP BW BI DEVELOPER QUAL Negative Normal Negative [facility] Comment on above: Order Comment: Nicky crawley Type: BLOOD SPECIMEN Ordering Facility: [facility] Address: [address] [place] [address] Performed By: #### V IT #### [facility] [id number] [address] [place] [address] RIBOSOMAL SAP BW BI DEVELOPER QUAL Negative Normal Negative [facility] Comment on above: Order Comment: Nicky crawley Type: BLOOD SPECIMEN Ordering Facility: [facility] Address: [address] [place] [address] Result Comment: Anti -Ribosomal RNA (Ribosomal P) antibody is used as an aid in diagnosis of systemic autoimmune diseases especially systemic lupus erythematosus and mixed connective tissue disease. Cross-reactivity with Anti-lobo antibody is not uncommon. Clinical correlation is required. Test Methodology: Multiplex flow immunoassay. Performed By: #### 5 1775-5, 72852-6, 20566-5, 27201-7, 95614-0, 52125-5, 54394-9, 66372-7 #### [facility] CLIA [id number] [facility] [place] [address] [place] SCL-70 extractable nuclear I gG IA Qn (S)on 05-19-2023 SCLERODERMA AB QUAL Negative Normal Negative [facility] Comment on above: Order Comment: Nicky crawley Type: BLOOD SPECIMEN Ordering Facility: [facility] Address: [address] [place] [address] Performed By: #### 5 5-5, 24690-8, 34669-5, 81486-5, 10683-9, 54155-6, 13570-8, 09899-2 #### [facility] CLIA [id number] [address] [place] [address] [place] SCLERODERMA IGG AB <0.2 Normal <1.0 [facility] Comment on above: Order Comment: Nicky crawley Type: BLOOD SPECIMEN Ordering Facility: [facility] Address: [address] [place] [address] Result Comment: Scl- 70/Scleroderma antibody test is used as an aid in diagnosis of systemic sclerosis especially the diffuse cutaneous form. A negative result cannot rule out systemic sclerosis. The final interpretation should consider clinical picture and other test results such as anti-centromere antibody. Test Methodology: Multiplex flow immunoassay. Performed By: #### 5 1775-5, 66963-3, 81256-0, 91840-3, 48463-4, 99160-5, 81734-3, 62119-6 #### [facility] CLIA [id number] [address] [address] [place] Sjogrens syndrome-A extracta ble nuclear Ab Qn (S)on 05-19-2023 SSA ANTIBODY QUAL Negative Normal Negative [facility] Comment on above: Order Comment: Speci men Type: BLOOD SPECIMEN Ordering Facility: [facility] Address: [address] [place] [address] Performed By: #### 5 1775-5, 00865-1, 53121-2, 19337-6, 12103-0, 52248-0, 39852-5, 88545-5 #### [facility] CLIA [id number] [address] [address] [place] Sjogrens syndrome-B extracta ble nuclear Ab Qn (S)on 05-19-2023 SSB ANTIBODY QUAL Negative Normal Negative [facility] Comment on above: Order Comment: Speci men Type: BLOOD SPECIMEN Ordering Facility: [facility] Address: [address] [place] [address] Performed By: #### 5 1775-5, 09655-6, 03392-3, 39950-4, 05282-5, 06709-7, 84050-1, 07603-2 #### [facility] CLIA [id number] [address] [place], [place] [address] [place] Lobo extractable nuclear Ig G Qn (S)on 05-19-2023 SM ANTIBODY QUAL Negative Normal Negative [facility] Comment on above: Order Comment: Speci men Type: BLOOD SPECIMEN Ordering Facility: [facility] Address: [address] [place], [place] [address] Result Comment: Anti -Sm (Lobo) antibody is used as an aid in diagnosis of systemic lupus erythematosus and its presence is associated with renal disease. A negative result cannot rule out systemic lupus erythematosus. Clinical correlation is required. Test Methodology: Multiplex flow immunoassay. Performed By: #### 5 1775-5, 52927-5, 32413-5, 84339-4, 73275-7, 70563-7, 30108-6, 37495-5 #### [facility] CLIA [id number] [address] [facility] [facility] [id number] [address] [place] VITAMIN B6/PYRIDOXINon 05-19 VITAMIN B6 169.1 nmol/L High 20.0-125.0 [facility] Comment on above: Order Comment: Speci men Type: BLOOD SPECIMEN Ordering Facility: [facility] Address: [address] [place] [address] Result Comment: INTE RPRETIVE INFORMATION: Vitamin B6 (Pyridoxal 5-Phosphate) Pyridoxal 5'-phosphate measured in a specimen collected following an 8-hour or overnight fast accurately indicates vitamin B6 nutritional status. Non-fasting specimen concentration reflects recent vitamin intake. This test was developed and its performance characteristics determined by [facility]. It has not been cleared or approved by the US Food and Drug Administration. This test was performed in a CLIA certified laboratory and is intended for clinical purposes. Performed By: [facility] [address] [place] [address] Care Partner: Greg Wong MD, PhD CLIA Number: [id number] Performed By: #### V ITB6 #### [facility] CLIA [id number] [address] [place] [address] Vit B12 [facility] Cobalamin (Vitamin B12) [Mass/Vol] 412 pg/mL Normal 232-1245 [facility] Comment on above: Order Comment: Speci men Type: BLOOD SPECIMEN Ordering Facility: [facility] Address: [address] [place] [address] Performed By: #### V ITB6 #### [facility] CLIA [id number] [address] [place] [address] CNOVon 05-17-2023 CNOV Office Visit (ADRY ) -- LUPE PICKARD ([id number]) 1975 F Date Time Provider Department 05/17/23 2:00 PM STEPHIE BRAMBILA During your visit today, we recorded the following information about you: Pulse Respiration Blood pressure Weight 70/minute 18/minute 144/81 121.8 kg Stephie Brambila MD 05/17/2023 2:50 PM Signed [facility] Date of Service: 05/17/2023 Patient: Lupe Pickard Medical Record: [id number] Last Rheumatology visit: None at [facility] History of Present Illness Lupe Pickard [...] uses heat/ice, massage which helps. She takes [place] 5mg that does not do much for [...] 10 years. 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 Family History: No known FH of autoimmune [...] mg ta (more content not included)... Normal [facility] C reactive protein [Mass/vol ume] in Serum or Plasma by High sensitivity methodOrdered By: Zoya Aguirre on 03-29-2023 CRP High sensitivity method [Mass/Vol] 4.6 mg/L 0.0-0.9 [facility] Comment on above: Cardiovascular Risk Classification (AHA/CDC)hsCRP [...] Photometric method (Bld) [Velocity] 14 mm/hr 0-19 [facility] Vitamin B12 ser/plasOrdered By: Zoya Aguirre on 03-29-2023 Cobalamin (Vitamin B12) [Mass/Vol] 464 pg/mL 180-914 [facility] Alanine aminotransferase [En zymatic activity/volume] in Serum or PlasmaOrdered By: Radha Mcintosh on 03-17-2023 ALT [Catalytic activity/Vol] 13 U/L 7-52 [facility] Albumin [Mass/volume] in Ser um or Plasma by Bromocresol green (BCG) dye binding methoOrdered By: Radha Mcintosh on 03-17-2023 Albumin BCG dye [Mass/Vol] 4.2 g/dL 3.5-5.7 [facility] Alkaline phosphatase [Enzyma tic activity/volume] in Serum or PlasmaOrdered By: Radha Mcintosh on 03-17-2023 ALP [Catalytic activity/Vol] 66 U/L 34-104 [facility] Aspartate aminotransferase [ Enzymatic activity/volume] in Serum or PlasmaOrdered By: Radha Mcintosh on 03-17-2023 AST [Catalytic activity/Vol] 11 U/L 13-39 [facility] Basophils Auto (Bld) [#/Vol] Ordered By: Radha Mcintosh on 03-17-2023 Basophils (Bld) [#/Vol] 0.1 10*3/uL 0.0-0.2 [facility] Basophils/100 WBC Auto (Bld) Ordered By: Radha Mcintosh on 03-17-2023 Basophils/100 WBC (Bld) 0.8 % . [facility] Bilirubin.total [Mass/volume ] in Serum or PlasmaOrdered By: Radha Mcintosh on 03-17-2023 Bilirubin [Mass/Vol] 0.3 mg/dL 0.3-1.0 [facility] Calcium [Mass/volume] in Ser um or PlasmaOrdered By: Melissa Singh on 03-17-2023 Calcium [Mass/Vol] 9.0 mg/dL 8.6-10.3 [facility] Carbon dioxide, total [Moles /volume] in Serum or PlasmaOrdered By: Radha Mcintosh on 03-17-2023 CO2 [Moles/Vol] 27.5 mmol/L 21.0-31.0 [facility] Chloride [Moles/volume] in S zakia or PlasmaOrdered By: Radha Mcintosh on 03-17-2023 Chloride [Moles/Vol] 104 mmol/L 98-107 [facility] Creatinine [Mass/volume] in Serum or PlasmaOrdered By: Radha Mcintosh on 03-17-2023 Creatinine [Mass/Vol] 0.54 mg/dL 0.60-1.20 [facility] Eosinophils Auto (Bld) [#/Vo l]Ordered By: Radha Mcintosh on 03-17-2023 Eosinophils (Bld) [#/Vol] 0.1 10*3/uL 0.0-0.45 [facility] Eosinophils/100 WBC Auto (Bl d)Ordered By: Radha Mcintosh on 03-17-2023 Eosinophils/100 WBC (Bld) 1.5 % . [facility] Erythrocyte distribution wid th Auto (RBC) [Ratio]Ordered By: Radha Mcintosh on 03-17-2023 Erythrocyte distribution width (RBC) [Ratio] 15.2 % 11.9-15.3 [facility] Ferritin [Mass/volume] in Se rum or PlasmaOrdered By: Melissa Singh on 03-17-2023 Ferritin [Mass/Vol] 66.4 ng/mL 11.0-306.8 [facility] Folate [Mass/volume] in Seru m or PlasmaOrdered By: Melissa Singh on 03-17-2023 Folate [Mass/Vol] 27.0 ng/mL >5.9 [facility] Comment on above: Folate reference ran ge: >5.9 ng/mlThe WHO technical consultation on folate and vitamin [id number] has determined that folate concentrations lessthan 4 ng/ml are considered deficient. Globulin Calc (S) [Mass/Vol] Ordered By: Radha Mcintosh on 03-17-2023 Globulin (S) [Mass/Vol] 2.8 g/dL [facility] Glucose [Mass/volume] in Ser um or PlasmaOrdered By: Radha Mcintosh on 03-17-2023 Glucose [Mass/Vol] 79 mg/dL 70-100 [facility] Comment on above: ADA recommended refe rence rangeRandom Glucose Reference Range is dependent on time and content of last meal. Glucose of more than 200 mg/dL in a nonstressed, ambulatory subject supports the diagnosis of Diabetes Mellitus. Hematocrit Auto (Bld) [Volum e fraction]Ordered By: Radha Mcintosh on 03-17-2023 Hematocrit (Bld) [Volume fraction] 39.4 % 34.0-46.4 [facility] Hemoglobin [Mass/volume] in BloodOrdered By: Radha Mcintosh on 03-17-2023 Hemoglobin (Bld) [Mass/Vol] 13.1 g/dL 11.8-15.4 [facility] Iron [Mass/volume] in Serum or PlasmaOrdered By: Melissa Singh on 03-17-2023 Iron [Mass/Vol] 40 ug/dL 50-212 [facility] Leukocytes [#/volume] correc emily for nucleated erythrocytes in Blood by Automated counOrdered By: Radha Mcintosh on 03-17-2023 WBC corrected for nucl RBC Auto (Bld) [#/Vol] 8.8 10*3/uL 3.8-11.6 [facility] Lymphocytes Auto (Bld) [#/Vo l]Ordered By: Rdaha Mcintosh on 03-17-2023 Lymphocytes (Bld) [#/Vol] 2.6 10*3/uL 1.00-4.8 [facility] Lymphocytes/100 WBC Auto (Bl d)Ordered By: Radha Mcintosh on 03-17-2023 Lymphocytes/100 WBC (Bld) 29.4 % . [facility] MCH Auto (RBC) [Entitic mass ]Ordered By: Radha Mcintosh on 03-17-2023 MCH (RBC) [Entitic mass] 29.0 pg 24.7-34.3 [facility] MCHC Auto (RBC) [Mass/Vol]Or dered By: Radha Mcintosh on 03-17-2023 MCHC (RBC) [Mass/Vol] 33.3 g/dL 32.0-35.0 [facility] MCV Auto (RBC) [Entitic vol] Ordered By: Radha Mcintosh on 03-17-2023 MCV (RBC) [Entitic vol] 87.0 fL 80-100 [facility] Monocytes Auto (Bld) [#/Vol] Ordered By: Radha Mcintosh on 03-17-2023 Monocytes (Bld) [#/Vol] 0.5 10*3/uL 0.0-0.8 [facility] Monocytes/100 WBC Auto (Bld) Ordered By: Radha Mcintosh on 03-17-2023 Monocytes/100 WBC (Bld) 5.5 % . [facility] Neutrophils Auto (Bld) [#/Vo l]Ordered By: Radha Mcintosh on 03-17-2023 Neutrophils (Bld) [#/Vol] 5.5 10*3/uL 1.8-7.7 [facility] Neutrophils/100 WBC Auto (Bl d)Ordered By: Radha Mcintosh on 03-17-2023 Neutrophils/100 WBC (Bld) 62.8 % . [facility] No Panel InformationOrdered By: Radha Mcintosh on 03-17-2023 Estimated GFR (CKD-EPI) > 60.0 mL/Min [facility] Pharmacy Creatinine Clearance (Chem N/A [facility] Nucleated erythrocytes [Pres ence] in Blood by Automated countOrdered By: Radha Mcintosh on 03-17-2023 Nucleated RBC Auto Ql (Bld) 0.1 /100{WBC} 0-0.5 [facility] Parathyrin.intact [Mass/volu me] in Serum or PlasmaOrdered By: Melissa Singh on 03-17-2023 Parathyrin.intact [Mass/Vol] 46.2 pg/mL 12-88 [facility] Phosphate [Mass/volume] in S zakia or PlasmaOrdered By: Melissa Singh on 03-17-2023 Phosphate [Mass/Vol] 4.0 mg/dL 3.7-7.2 [facility] Platelet mean volume Auto (B ld) [Entitic vol]Ordered By: Radha Mcintosh on 03-17-2023 Platelet mean volume (Bld) [Entitic vol] 7.6 fL 6.3-10.7 [facility] Platelets Auto (Bld) [#/Vol] Ordered By: Radha Mcintosh on 03-17-2023 Platelets (Bld) [#/Vol] 370 10*3/uL 150-450 [facility] Potassium [Moles/volume] in Serum or PlasmaOrdered By: Radha Mcintosh on 03-17-2023 Potassium [Moles/Vol] 4.1 mmol/L 3.5-5.1 [facility] Protein [Mass/volume] in Ser um or PlasmaOrdered By: Radha Mcintosh on 03-17-2023 Protein [Mass/Vol] 7.0 g/dL 6.4-8.9 [facility] RBC Auto (Bld) [#/Vol]Ordere d By: Radha Mcintosh on 03-17-2023 RBC (Bld) [#/Vol] 4.53 10*6/uL 3.60-5.00 [facility] Serum or plasma 25-hydroxyca lciferol measurement (mass/volume)Ordered By: Radha Mcintosh on 03-17-2023 25-hydroxyvitamin D2 [Mass/Vol] <1.0 ng/mL . [facility] Comment on above: This test was develo ped and its performance characteristicsdetermined by [facility]. It has not been cleared or approvedby the Food and Drug Administration. Serum or plasma 25-hydroxyvi tamin D measurement (mass/volume)Ordered By: Radha Mcintosh on 03-17-2023 25-hydroxyvitamin D [Mass/Vol] 47 ng/mL . [facility] Comment on above: Reference Range:All Ages: Target levels 30 - 100 Serum or plasma albumin/glob ulin mass ratioOrdered By: Radha Mcintosh on 03-17-2023 Albumin/Globulin [Mass ratio] 1.5 {ratio} [facility] Serum or plasma anion gap de terminationOrdered By: Radha Mcintosh on 03-17-2023 Anion gap [Moles/Vol] 11.6 mmol/L 6.0-15.0 [facility] Serum or plasma calcidiol me asurement (mass/volume)Ordered By: Radha Mcintosh on 03-17-2023 25-hydroxyvitamin D3 [Mass/Vol] 47 ng/mL . [facility] Comment on above: This test was develo ped and its performance characteristicsdetermined by [facility]. It has not been cleared or approvedby the Food and Drug Administration.Performed at: [facility] [address] [id number] Director: Kenji Malone MD, Phone: [phone] Sodium [Moles/volume] in Ser um or PlasmaOrdered By: Radha Mcintosh on 03-17-2023 Sodium [Moles/Vol] 139 mmol/L 136-145 [facility] Urea nitrogen [Mass/volume] in Serum or PlasmaOrdered By: Radha Mcintosh on 03-17-2023 Urea nitrogen [Mass/Vol] 9 mg/dL 7-25 [facility] Vitamin B12 ser/plasOrdered By: Melissa Singh on 03-17-2023 Cobalamin (Vitamin B12) [Mass/Vol] 478 pg/mL 180-914 [facility] WBC Auto (Bld) [#/Vol]Ordere d By: Radha Mcintosh on 03-17-2023 WBC (Bld) [#/Vol] 8.8 10*3/uL 3.8-11.6 [facility] Thyrotropin [Units/volume] i n Serum or PlasmaOrdered By: Kenyetta Dove on 02-17-2023 TSH Qn 0.24 m[IU]/L 0.45-5.33 [facility] Thyroxine (T4) free [Mass/vo lume] in Serum or PlasmaOrdered By: Kenyetta Dove on 02-17-2023 Free T4 [Mass/Vol] 0.87 ng/dL 0.61-1.12 [facility] Triiodothyronine (T3) Free [ Mass/volume] in Serum or PlasmaOrdered By: Kenyetta Dove on 02-17-2023 Free T3 [Mass/Vol] 3.89 pg/mL 2.50-3.90 [facility] Activated partial thrombopla stin time (aPTT) in platelet poor plasma by coagulation aOrdered By: Laz Lobo on 01-24-2023 aPTT Coag (PPP) [Time] 29.9 s 25.1-36.5 [facility] Basophils Auto (Bld) [#/Vol] Ordered By: Laz Lobo on 01-24-2023 Basophils (Bld) [#/Vol] 0.1 10*3/uL 0.0-0.2 [facility] Basophils/100 WBC Auto (Bld) Ordered By: Laz Lobo on 01-24-2023 Basophils/100 WBC (Bld) 0.7 % . [facility] Bilirubin Test strip Ql (U)O rdered By: Laz Lobo on 01-24-2023 Bilirubin Ql (U) Negative Negative [facility] Calcium [Mass/volume] in Ser um or PlasmaOrdered By: Laz Lobo on 01-24-2023 Calcium [Mass/Vol] 8.7 mg/dL 8.6-10.3 [facility] Carbon dioxide, total [Moles /volume] in Serum or PlasmaOrdered By: Laz Lobo on 01-24-2023 CO2 [Moles/Vol] 29.0 mmol/L 21.0-31.0 [facility] Chloride [Moles/volume] in S zakia or PlasmaOrdered By: Laz Lobo on 01-24-2023 Chloride [Moles/Vol] 105 mmol/L 98-107 [facility] Color Auto (U)Ordered By: Elsa Lobo on 01-24-2023 Color (U) Yellow Yellow [facility] Creatine kinase [Enzymatic a ctivity/volume] in Serum or PlasmaOrdered By: Laz Lobo on 01-24-2023 CK [Catalytic activity/Vol] 55 U/L 30-223 [facility] Creatinine [Mass/volume] in Serum or PlasmaOrdered By: Laz Lobo on 01-24-2023 Creatinine [Mass/Vol] 0.57 mg/dL 0.60-1.20 [facility] Eosinophils Auto (Bld) [#/Vo l]Ordered By: Laz Lobo on 01-24-2023 Eosinophils (Bld) [#/Vol] 0.1 10*3/uL 0.0-0.45 [facility] Eosinophils/100 WBC Auto (Bl d)Ordered By: Laz Lobo on 01-24-2023 Eosinophils/100 WBC (Bld) 1.6 % . [facility] Erythrocyte distribution wid th Auto (RBC) [Ratio]Ordered By: Laz Lobo on 01-24-2023 Erythrocyte distribution width (RBC) [Ratio] 14.5 % 11.9-15.3 [facility] Glucose [Mass/volume] in Ser um or PlasmaOrdered By: Laz Lobo on 01-24-2023 Glucose [Mass/Vol] 110 mg/dL 70-100 [facility] Comment on above: ADA recommended refe rence rangeRandom Glucose Reference Range is dependent on time and content of last meal. Glucose of more than 200 mg/dL in a nonstressed, ambulatory subject supports the diagnosis of Diabetes Mellitus. Hematocrit Auto (Bld) [Volum e fraction]Ordered By: Laz Lobo on 01-24-2023 Hematocrit (Bld) [Volume fraction] 39.8 % 34.0-46.4 [facility] Hemoglobin [Mass/volume] in BloodOrdered By: Laz Lobo on 01-24-2023 Hemoglobin (Bld) [Mass/Vol] 13.2 g/dL 11.8-15.4 [facility] INR in Platelet poor plasma by Coagulation assayOrdered By: Laz Lobo on 01-24-2023 INR Coag (PPP) [Relative time] 1.0 {INR} [facility] Comment on above: INR Therapeutic Rang e [...] on 01-24-2023 Ketones (U) [Mass/Vol] Negative Negative [facility] Laboratory - CoagulationOrde red By: Laz Lobo on 01-24-2023 PT Coag (PPP) [Time] 11.5 s 9.0-12.9 [facility] Leukocytes [#/volume] correc emily for nucleated erythrocytes in Blood by Automated counOrdered By: Laz Lobo on 01-24-2023 WBC corrected for nucl RBC Auto (Bld) [#/Vol] 7.6 10*3/uL 3.8-11.6 [facility] Lymphocytes Auto (Bld) [#/Vo l]Ordered By: Laz Lobo on 01-24-2023 Lymphocytes (Bld) [#/Vol] 2.0 10*3/uL 1.00-4.8 [facility] Lymphocytes/100 WBC Auto (Bl d)Ordered By: Laz Lobo on 01-24-2023 Lymphocytes/100 WBC (Bld) 26.6 % . [facility] MCH Auto (RBC) [Entitic mass ]Ordered By: Laz Lobo on 01-24-2023 MCH (RBC) [Entitic mass] 28.8 pg 24.7-34.3 [facility] MCHC Auto (RBC) [Mass/Vol]Or dered By: Laz Lobo on 01-24-2023 MCHC (RBC) [Mass/Vol] 33.1 g/dL 32.0-35.0 [facility] MCV Auto (RBC) [Entitic vol] Ordered By: Laz Lobo on 01-24-2023 MCV (RBC) [Entitic vol] 86.8 fL 80-100 [facility] Monocyte distribution width [Entitic volume] in Blood by AutomatedOrdered By: Laz Lobo on 01-24-2023 Monocyte distribution width Auto (Bld) [Entitic vol] 16.72 % 0.00-20.00 [facility] Monocytes Auto (Bld) [#/Vol] Ordered By: Laz Lobo on 01-24-2023 Monocytes (Bld) [#/Vol] 0.2 10*3/uL 0.0-0.8 [facility] Monocytes/100 WBC Auto (Bld) Ordered By: Laz Lobo on 01-24-2023 Monocytes/100 WBC (Bld) 2.7 % . [facility] Natriuretic peptide B [Mass/ Vol]Ordered By: Laz Lobo on 01-24-2023 Natriuretic peptide B (Bld) [Mass/Vol] 37.0 pg/mL 5-100 [facility] Neutrophils Auto (Bld) [#/Vo l]Ordered By: Laz Lobo on 01-24-2023 Neutrophils (Bld) [#/Vol] 5.2 10*3/uL 1.8-7.7 [facility] Neutrophils/100 WBC Auto (Bl d)Ordered By: Laz Lobo on 01-24-2023 Neutrophils/100 WBC (Bld) 68.4 % . [facility] Nitrite Test strip Ql (U)Ord ered By: Laz Lobo on 01-24-2023 Nitrite Ql (U) Negative Negative [facility] No Panel InformationOrdered By: Laz Lobo on 01-24-2023 D-Dimer Quantitative (PE/DVT) < 200 ng/mL 0-243 [facility] Comment on above: The reference range for [...] conditions. Estimated GFR (CKD-EPI) > 60.0 mL/Min [facility] Creatinine Clearance (Chem 169.33 [facility] Nucleated erythrocytes [Pres ence] in Blood by Automated countOrdered By: Laz Lobo on 01-24-2023 Nucleated RBC Auto Ql (Bld) 0.1 /100{WBC} 0-0.5 [facility] Platelet mean volume Auto (B ld) [Entitic vol]Ordered By: Laz Lobo on 01-24-2023 Platelet mean volume (Bld) [Entitic vol] 8.2 fL 6.3-10.7 [facility] Platelets Auto (Bld) [#/Vol] Ordered By: Laz Lobo on 01-24-2023 Platelets (Bld) [#/Vol] 350 10*3/uL 150-450 [facility] Potassium [Moles/volume] in Serum or PlasmaOrdered By: Laz Lobo on 01-24-2023 Potassium [Moles/Vol] 3.8 mmol/L 3.5-5.1 [facility] Protein Auto test strip (U) [Mass/Vol]Ordered By: Laz Lobo on 01-24-2023 Protein (U) [Mass/Vol] Negative Negative [facility] RBC Auto (Bld) [#/Vol]Ordere d By: Laz Lobo on 01-24-2023 RBC (Bld) [#/Vol] 4.59 10*6/uL 3.60-5.00 [facility] Serum or plasma anion gap de terminationOrdered By: Laz Lobo on 01-24-2023 Anion gap [Moles/Vol] 8.8 mmol/L 6.0-15.0 [facility] Sodium [Moles/volume] in Ser um or PlasmaOrdered By: Laz Lobo on 01-24-2023 Sodium [Moles/Vol] 139 mmol/L 136-145 [facility] Specific gravity Auto test s trip (U) [Rel density]Ordered By: Laz Lobo on 01-24-2023 Specific gravity (U) [Rel density] 1.004 1.001-1.03 0 [facility] Troponin I.cardiac [Mass/vol ume] in Serum or Plasma by Detection limit <= 0.01 ng/Ordered By: Laz Lobo on 01-24-2023 Troponin I.cardiac DL <= 0.01 ng/mL [Mass/Vol] < 2.3 pg/mL 0.0-15.0 [facility] Urea nitrogen [Mass/volume] in Serum or PlasmaOrdered By: Laz Lobo on 01-24-2023 Urea nitrogen [Mass/Vol] 7 mg/dL 7-25 [facility] Urine clarity by refractomet ry automatedOrdered By: Laz Lobo on 01-24-2023 Clarity Refractometry automated (U) Clear Clear [facility] Urine glucose measurement by automated test strip (mass/volume)Ordered By: Laz Lobo on 01-24-2023 Glucose Auto test strip (U) [Mass/Vol] Normal mg/dL Normal [facility] Urine hemoglobin detection b y automated test stripOrdered By: Laz Lobo on 01-24-2023 Hemoglobin Auto test strip Ql (U) Negative Negative [facility] Urine leukocyte esterase det ection by automated test stripOrdered By: Laz Lobo on 01-24-2023 Leukocyte esterase Auto test strip Ql (U) Negative Negative [facility] Urobilinogen Auto test strip (U) [Mass/Vol]Ordered By: Laz Lobo on 01-24-2023 Urobilinogen (U) [Mass/Vol] Normal mg/dL Normal [facility] WBC Auto (Bld) [#/Vol]Ordere d By: Laz Lobo on 01-24-2023 WBC (Bld) [#/Vol] 7.6 10*3/uL 3.8-11.6 [facility] pH Auto test strip (U)Ordere d By: Laz Lobo on 01-24-2023 pH (U) 7.0 [pH] 5.0-9.0 [facility] Calcium [Mass/volume] in Ser um or PlasmaOrdered By: Phillip Benjamin on 01-21-2023 Calcium [Mass/Vol] 9.1 mg/dL 8.6-10.3 [facility] Carbon dioxide, total [Moles /volume] in Serum or PlasmaOrdered By: Phillip Benjamin on 01-21-2023 CO2 [Moles/Vol] 28.2 mmol/L 21.0-31.0 [facility] Chloride [Moles/volume] in S zakia or PlasmaOrdered By: Phillip Benjamin on 01-21-2023 Chloride [Moles/Vol] 105 mmol/L 98-107 [facility] Cholesterol [Mass/volume] in Serum or PlasmaOrdered By: Franklyn Herman on 01-21-2023 Cholesterol [Mass/Vol] 153 mg/dL 140-200 [facility] Comment on above: Chol less than 200 m g/dl low riskChol 201-239 mg/dl borderline riskChol 240 mg/dl and greater high risk Cholesterol in LDL Calc [Mas s/Vol]Ordered By: Franklyn Herman on 01-21-2023 Cholesterol in LDL [Mass/Vol] 60 mg/dL 0-100 [facility] Comment on above: LDL ATP III CLASSIFI CATIONLDL less than 100 mg/dL OptimalLDL 100-129 mg/dL Near or above optimalLDL 130-159 mg/dL Borderline highLDL 160-189 mg/dL HighLDL greater than 189 mg/dL Very high Cholesterol in VLDL Calc [Ma ss/Vol]Ordered By: Franklyn Herman on 01-21-2023 Cholesterol in VLDL [Mass/Vol] 50 mg/dL [facility] Creatinine [Mass/volume] in Serum or PlasmaOrdered By: Phillip Benjamin on 01-21-2023 Creatinine [Mass/Vol] 0.52 mg/dL 0.60-1.20 [facility] Glucose [Mass/volume] in Ser um or PlasmaOrdered By: Phillip Benjamin on 01-21-2023 Glucose [Mass/Vol] 84 mg/dL 70-100 [facility] Comment on above: ADA recommended refe rence rangeRandom Glucose Reference Range is dependent on time and content of last meal. Glucose of more than 200 mg/dL in a nonstressed, ambulatory subject supports the diagnosis of Diabetes Mellitus. No Panel InformationOrdered By: Phillip Benjamin on 01-21-2023 Estimated GFR (CKD-EPI) > 60.0 mL/Min [facility] Creatinine Clearance (Chem N/A [facility] No Panel Informationon 01-21 > 60.0 Normal -[facility] [employer] [address] Work Phone: [phone] 10.1\S\10.1 Normal 6.0-15.0 -[facility] [employer] [address] Work Phone: [phone] 9.1\S\9.1 Normal 8.6-10.3 [facility] [employer] [address] Work Phone: [phone] 28.2\S\28.2 Normal 21.0-31.0 -[facility] [employer] [address] Work Phone: [phone] 105\S\105 Normal 98-107 -[facility] [employer] [address] Work Phone: [phone] 4.3\S\4.3 Normal 3.5-5.1 [facility] [employer] [address] Work Phone: [phone] 139\S\139 Normal 136-145 [facility] [employer] [address] Work Phone: [phone] 0.52\S\0.52 below low threshold 0.60-1.20 -[facility] [employer] [address] Work Phone: [phone] 8\S\8 Normal 7-25 [facility] [employer] [address] Work Phone: [phone] 84\S\84 Normal 70-100 [facility] [employer] [address] Work Phone: [phone] Comment on above: Random Glucose Refer ence Range is dependent on time and content of last meal. Glucose of more than 200 mg/dL in a nonstressed, ambulatory subject supports the diagnosis of Diabetes Mellitus. ADA recommended reference range 0.24\S\0.24 below low threshold 0.45-5.33 [facility] [address] Work Phone: 41.7\S\41.7 Normal 30-100 [facility] [address] Work Phone: Comment on above: VITAMIN D STATUS 25( [place])VITAMIN D RANGE (ng/mL) Deficient <20 Insufficient 20 to <30 Sufficient 30 to 100 Reference: Kirby MF,Adonay NC, Shantelle HOLLOWAY, et al. Evaluation,treatment, and prevention of vitamin D deficiency; an Endocrine Society clinical practice guideline. JCEM. 2010; 96(7):1911-30.PERFORMED BY:[place] [id number] [place], [place] [id number] MEDICAL DIRECTORWENDY CLARK M.D. Potassium [Moles/volume] in Serum or PlasmaOrdered By: Phillip Benjamin on 01-21-2023 Potassium [Moles/Vol] 4.3 mmol/L 3.5-5.1 [facility] Serum or plasma anion gap de terminationOrdered By: Phillip Benjamin on 01-21-2023 Anion gap [Moles/Vol] 10.1 mmol/L 6.0-15.0 [facility] Serum or plasma high density lipoprotein (HDL) cholesterol measurementOrdered By: Franklyn Herman on 01-21-2023 Cholesterol in HDL [Mass/Vol] 42 mg/dL 23-92 [facility] Comment on above: HDL CHOL ATP-III CLA SSIFICATION Cardiovascular RiskHDL > or equal to 60 mg/dL LOWHDL < 40 mg/dL HIGH Serum or plasma total choles terol/high density lipoprotein (HDL) cholesterol mass ratOrdered By: Franklyn Herman on 01-21-2023 Cholesterol.total/Cho lesterol in HDL [Mass ratio] 3.6 {ratio} <5.0 [facility] Sodium [Moles/volume] in Ser um or PlasmaOrdered By: Phillip Benjamin on 01-21-2023 Sodium [Moles/Vol] 139 mmol/L 136-145 [facility] Thyrotropin [Units/volume] i n Serum or PlasmaOrdered By: Phillip Benjamin on 01-21-2023 TSH Qn 0.24 m[IU]/L 0.45-5.33 [facility] Triglyceride [Mass/volume] i n Serum or PlasmaOrdered By: Franklyn Herman on 01-21-2023 Triglyceride [Mass/Vol] 254 mg/dL 0-149 [facility] Comment on above: TRIG ATP III CLASSIF ICATIONTRIG less than 150 mg/dL NormalTRIG 150-199 mg/dL Borderline highTRIG 200-500 mg/dL High TRIG greater than 500 mg/dL Very highStandard traceable to the Center for Disease Conrtrol and Prevention (CDC) test method. Urea nitrogen [Mass/volume] in Serum or PlasmaOrdered By: Phillip Benjamin on 01-21-2023 Urea nitrogen [Mass/Vol] 8 mg/dL 7-25 [facility] Vitamin D+Metabolites [Mass/ volume] in Serum or PlasmaOrdered By: Phillip Benjamin on 01-21-2023 Vitamin D+Metabolites [Mass/Vol] 41.7 ng/mL 30-100 [facility] Comment on above: VITAMIN D STATUS 25( [...] aPTT Coag (PPP) [Time] 30.5 s 25.1-36.5 [facility] Basophils Auto (Bld) [#/Vol] Ordered By: Mariya Kumari on 12-30-2022 Basophils (Bld) [#/Vol] 0.1 10*3/uL 0.0-0.2 [facility] Basophils/100 WBC Auto (Bld) Ordered By: Mariya Kumari on 12-30-2022 Basophils/100 WBC (Bld) 1.3 % . [facility] Calcium [Mass/volume] in Ser um or PlasmaOrdered By: Mariya Kumari on 12-30-2022 Calcium [Mass/Vol] 8.4 mg/dL 8.6-10.3 [facility] Carbon dioxide, total [Moles /volume] in Serum or PlasmaOrdered By: Mariya Kumari on 12-30-2022 CO2 [Moles/Vol] 28.0 mmol/L 21.0-31.0 [facility] Chloride [Moles/volume] in S zakia or PlasmaOrdered By: Mariya Kumari on 12-30-2022 Chloride [Moles/Vol] 104 mmol/L 98-107 [facility] Creatinine [Mass/volume] in Serum or PlasmaOrdered By: Mariya Kumari on 12-30-2022 Creatinine [Mass/Vol] 0.56 mg/dL 0.60-1.20 [facility] Eosinophils Auto (Bld) [#/Vo l]Ordered By: Mariya Kumari on 12-30-2022 Eosinophils (Bld) [#/Vol] 0.1 10*3/uL 0.0-0.45 [facility] Eosinophils/100 WBC Auto (Bl d)Ordered By: Mariya Kumari on 12-30-2022 Eosinophils/100 WBC (Bld) 1.5 % . [facility] Erythrocyte distribution wid th Auto (RBC) [Ratio]Ordered By: Mariya Kumari on 12-30-2022 Erythrocyte distribution width (RBC) [Ratio] 14.4 % 11.9-15.3 [facility] Glucose [Mass/volume] in Ser um or PlasmaOrdered By: Mariya Kumari on 12-30-2022 Glucose [Mass/Vol] 87 mg/dL 70-100 [facility] Comment on above: ADA recommended refe rence rangeRandom Glucose Reference Range is dependent on time and content of last meal. Glucose of more than 200 mg/dL in a nonstressed, ambulatory subject supports the diagnosis of Diabetes Mellitus. Hematocrit Auto (Bld) [Volum e fraction]Ordered By: Mariya Kumari on 12-30-2022 Hematocrit (Bld) [Volume fraction] 40.1 % 34.0-46.4 [facility] Hemoglobin [Mass/volume] in BloodOrdered By: Mariya Kumari on 12-30-2022 Hemoglobin (Bld) [Mass/Vol] 13.3 g/dL 11.8-15.4 [facility] Laboratory - CoagulationOrde red By: Mariya Kumari on 12-30-2022 PT Coag (PPP) [Time] 10.9 s 9.0-12.9 [facility] Leukocytes [#/volume] correc emily for nucleated erythrocytes in Blood by Automated counOrdered By: Mariya Kumari on 12-30-2022 WBC corrected for nucl RBC Auto (Bld) [#/Vol] 9.6 10*3/uL 3.8-11.6 [facility] Lymphocytes Auto (Bld) [#/Vo l]Ordered By: Mariya Kumari on 12-30-2022 Lymphocytes (Bld) [#/Vol] 3.2 10*3/uL 1.00-4.8 [facility] Lymphocytes/100 WBC Auto (Bl d)Ordered By: Mariya Kumari on 12-30-2022 Lymphocytes/100 WBC (Bld) 33.6 % . [facility] MCH Auto (RBC) [Entitic mass ]Ordered By: Mariya Kumari on 12-30-2022 MCH (RBC) [Entitic mass] 28.8 pg 24.7-34.3 [facility] MCHC Auto (RBC) [Mass/Vol]Or dered By: Mariya Kumari on 12-30-2022 MCHC (RBC) [Mass/Vol] 33.1 g/dL 32.0-35.0 [facility] MCV Auto (RBC) [Entitic vol] Ordered By: Mariya Kumari on 12-30-2022 MCV (RBC) [Entitic vol] 87.2 fL 80-100 [facility] Magnesium [Mass/volume] in S zakia or PlasmaOrdered By: Mariya Kumari on 12-30-2022 Magnesium [Mass/Vol] 1.9 mg/dL 1.9-2.7 [facility] Monocyte distribution width [Entitic volume] in Blood by AutomatedOrdered By: Mariya Kumari on 12-30-2022 Monocyte distribution width Auto (Bld) [Entitic vol] 16.70 % 0.00-20.00 [facility] Monocytes Auto (Bld) [#/Vol] Ordered By: Mariya Kumari on 12-30-2022 Monocytes (Bld) [#/Vol] 0.4 10*3/uL 0.0-0.8 [facility] Monocytes/100 WBC Auto (Bld) Ordered By: Mariay Kumari on 12-30-2022 Monocytes/100 WBC (Bld) 4.0 % . [facility] Natriuretic peptide B [Mass/ Vol]Ordered By: Mariya Kumari on 12-30-2022 Natriuretic peptide B (Bld) [Mass/Vol] 55.0 pg/mL 5-100 [facility] Neutrophils Auto (Bld) [#/Vo l]Ordered By: Mariya Kumari on 12-30-2022 Neutrophils (Bld) [#/Vol] 5.7 10*3/uL 1.8-7.7 [facility] Neutrophils/100 WBC Auto (Bl d)Ordered By: Mariya Kmuari on 12-30-2022 Neutrophils/100 WBC (Bld) 59.6 % . [facility] No Panel InformationOrdered By: Mariya Kumari on 12-30-2022 D-Dimer Quantitative (PE/DVT) 334 ng/mL 0-243 [facility] Comment on above: The reference range for [...] conditions. Estimated GFR (CKD-EPI) > 60.0 mL/Min [facility] Creatinine Clearance (Chem 171.83 [facility] Nucleated erythrocytes [Pres ence] in Blood by Automated countOrdered By: Mariya Kumari on 12-30-2022 Nucleated RBC Auto Ql (Bld) 0.1 /100{WBC} 0-0.5 [facility] Platelet mean volume Auto (B ld) [Entitic vol]Ordered By: Mariya Kumari on 12-30-2022 Platelet mean volume (Bld) [Entitic vol] 8.6 fL 6.3-10.7 [facility] Platelet poor plasma interna tional normalized ratio (INR) by coagulation assay (relatOrdered By: Mariya Kumari on 12-30-2022 INR Coag (PPP) [Relative time] 0.9 {INR} [facility] Comment on above: INR Therapeutic Rang e [...] 12-30-2022 Platelets (Bld) [#/Vol] 348 10*3/uL 150-450 [facility] Potassium [Moles/volume] in Serum or PlasmaOrdered By: Mariya Kumari on 12-30-2022 Potassium [Moles/Vol] 3.7 mmol/L 3.5-5.1 [facility] RBC Auto (Bld) [#/Vol]Ordere d By: Mariya Kumari on 12-30-2022 RBC (Bld) [#/Vol] 4.60 10*6/uL 3.60-5.00 [facility] Serum or plasma anion gap de terminationOrdered By: Mariya Kumari on 12-30-2022 Anion gap [Moles/Vol] 11.7 mmol/L 6.0-15.0 [facility] Sodium [Moles/volume] in Ser um or PlasmaOrdered By: Mariya Kumari on 12-30-2022 Sodium [Moles/Vol] 140 mmol/L 136-145 [facility] Troponin I.cardiac [Mass/vol ume] in Serum or Plasma by Detection limit <= 0.01 ng/Ordered By: Mariya Kumari on 12-30-2022 Troponin I.cardiac DL <= 0.01 ng/mL [Mass/Vol] 2.4 pg/mL 0.0-15.0 [facility] Urea nitrogen [Mass/volume] in Serum or PlasmaOrdered By: Mariya Kumari on 12-30-2022 Urea nitrogen [Mass/Vol] 7 mg/dL 7-25 [facility] WBC Auto (Bld) [#/Vol]Ordere d By: Mariya Kumari on 12-30-2022 WBC (Bld) [#/Vol] 9.6 10*3/uL 3.8-11.6 [facility] Activated partial thrombopla stin time (aPTT) in platelet poor plasma by coagulation aOrdered By: Josué Napier on 12-20-2022 aPTT Coag (PPP) [Time] 31.8 s 25.1-36.5 [facility] Alanine aminotransferase [En zymatic activity/volume] in Serum or PlasmaOrdered By: Josué Napier on 12-20-2022 ALT [Catalytic activity/Vol] 12 U/L 752 [facility] Albumin [Mass/volume] in Ser um or Plasma by Bromocresol green (BCG) dye binding methoOrdered By: Josué Napier on 12-20-2022 Albumin BCG dye [Mass/Vol] 4.4 g/dL 3.5-5.7 [facility] Alkaline phosphatase [Enzyma tic activity/volume] in Serum or PlasmaOrdered By: Josué Napier on 12-20-2022 ALP [Catalytic activity/Vol] 49 U/L 34-104 [facility] Amphetamine Screen Ql (U)Ord ered By: Josué Napier on 12-20-2022 Amphetamines Ql (U) Negative Negative [facility] Aspartate aminotransferase [ Enzymatic activity/volume] in Serum or PlasmaOrdered By: Josué Napier on 12-20-2022 AST [Catalytic activity/Vol] 11 U/L 13-39 [facility] Barbiturates [Presence] in U rine by Screen methodOrdered By: Josué Napier on 12-20-2022 Barbiturates Screen Ql (U) Negative Negative [facility] Basophils Auto (Bld) [#/Vol] Ordered By: Josué Napier on 12-20-2022 Basophils (Bld) [#/Vol] 0.0 10*3/uL 0.0-0.2 [facility] Basophils/100 WBC Auto (Bld) Ordered By: Josué Napier on 12-20-2022 Basophils/100 WBC (Bld) 0.2 % . [facility] Benzodiazepines Screen Ql (U )Ordered By: Josué Napier on 12-20-2022 Benzodiazepines Ql (U) Negative Negative [facility] Benzoylecgonine [Presence] i n Urine by Screen methodOrdered By: Josué Napier on 12-20-2022 Benzoylecgonine Screen Ql (U) Negative Negative [facility] Bilirubin Test strip Ql (U)O rdered By: Josué Napier on 12-20-2022 Bilirubin Ql (U) Negative Negative [facility] Bilirubin.total [Mass/volume ] in Serum or PlasmaOrdered By: Josué Napier on 12-20-2022 Bilirubin [Mass/Vol] 0.3 mg/dL 0.3-1.0 [facility] Calcium [Mass/volume] in Ser um or PlasmaOrdered By: Josué Napier on 12-20-2022 Calcium [Mass/Vol] 9.2 mg/dL 8.6-10.3 [facility] Cannabinoids [Presence] in U rine by Screen methodOrdered By: Josué Napier on 12-20-2022 Cannabinoids Screen Ql (U) Negative Negative [facility] Comment on above: These are unconfirme d results and should not be used for legal purposes. Drug Cut-Off Concentration: AMPH 1000 ng/mL MEKHI 200 ng/mL NURY 200 ng/mL COCM 300 ng/mL OP 300 ng/mL PCP 25 ng/mL THC 20 ng/mL Carbon dioxide, total [Moles /volume] in Serum or PlasmaOrdered By: Josué Napier on 12-20-2022 CO2 [Moles/Vol] 28.6 mmol/L 21.0-31.0 [facility] Chloride [Moles/volume] in S zakia or PlasmaOrdered By: Josué Napier on 12-20-2022 Chloride [Moles/Vol] 104 mmol/L 98-107 [facility] Color Auto (U)Ordered By: Randolph Napier on 12-20-2022 Color (U) Yellow Yellow [facility] Creatine kinase [Enzymatic a ctivity/volume] in Serum or PlasmaOrdered By: Josué Napier on 12-20-2022 CK [Catalytic activity/Vol] 46 U/L 30-223 [facility] Creatinine [Mass/volume] in Serum or PlasmaOrdered By: Josué Napier on 12-20-2022 Creatinine [Mass/Vol] 0.57 mg/dL 0.60-1.20 [facility] Eosinophils Auto (Bld) [#/Vo l]Ordered By: Josué Napier on 12-20-2022 Eosinophils (Bld) [#/Vol] 0.1 10*3/uL 0.0-0.45 [facility] Eosinophils/100 WBC Auto (Bl d)Ordered By: Josué Napier on 12-20-2022 Eosinophils/100 WBC (Bld) 1.1 % . [facility] Erythrocyte distribution wid th Auto (RBC) [Ratio]Ordered By: Josué Napier on 12-20-2022 Erythrocyte distribution width (RBC) [Ratio] 14.4 % 11.9-15.3 [facility] Globulin Calc (S) [Mass/Vol] Ordered By: Josué Napier on 12-20-2022 Globulin (S) [Mass/Vol] 3.1 g/dL [facility] Glucose [Mass/volume] in Ser um or PlasmaOrdered By: Josué Napier on 12-20-2022 Glucose [Mass/Vol] 97 mg/dL 70-100 [facility] Comment on above: ADA recommended refe rence rangeRandom Glucose Reference Range is dependent on time and content of last meal. Glucose of more than 200 mg/dL in a nonstressed, ambulatory subject supports the diagnosis of Diabetes Mellitus. Hematocrit Auto (Bld) [Volum e fraction]Ordered By: Josué Napier on 12-20-2022 Hematocrit (Bld) [Volume fraction] 40.7 % 34.0-46.4 [facility] Hemoglobin [Mass/volume] in BloodOrdered By: Josué Napier on 12-20-2022 Hemoglobin (Bld) [Mass/Vol] 13.7 g/dL 11.8-15.4 [facility] Ketones Auto test strip (U) [Mass/Vol]Ordered By: Josué Napier on 12-20-2022 Ketones (U) [Mass/Vol] Negative Negative [facility] Laboratory - CoagulationOrde red By: Josué Napier on 12-20-2022 PT Coag (PPP) [Time] 11.8 s 9.0-12.9 [facility] Leukocytes [#/volume] correc emily for nucleated erythrocytes in Blood by Automated counOrdered By: Josué Napier on 12-20-2022 WBC corrected for nucl RBC Auto (Bld) [#/Vol] 10.0 10*3/uL 3.8-11.6 [facility] Lymphocytes Auto (Bld) [#/Vo l]Ordered By: Josué Napier on 12-20-2022 Lymphocytes (Bld) [#/Vol] 2.7 10*3/uL 1.00-4.8 [facility] Lymphocytes/100 WBC Auto (Bl d)Ordered By: Josué Napier on 12-20-2022 Lymphocytes/100 WBC (Bld) 26.9 % . [facility] MCH Auto (RBC) [Entitic mass ]Ordered By: Josué Napier on 12-20-2022 MCH (RBC) [Entitic mass] 29.2 pg 24.7-34.3 [facility] MCHC Auto (RBC) [Mass/Vol]Or dered By: Josué Napier on 12-20-2022 MCHC (RBC) [Mass/Vol] 33.6 g/dL 32.0-35.0 [facility] MCV Auto (RBC) [Entitic vol] Ordered By: Josué Napier on 12-20-2022 MCV (RBC) [Entitic vol] 86.9 fL 80-100 [facility] Magnesium [Mass/volume] in S zakia or PlasmaOrdered By: Josué Napier on 12-20-2022 Magnesium [Mass/Vol] 1.8 mg/dL 1.9-2.7 [facility] Monocyte distribution width [Entitic volume] in Blood by AutomatedOrdered By: Josué Napier on 12-20-2022 Monocyte distribution width Auto (Bld) [Entitic vol] 18.26 % 0.00-20.00 [facility] Monocytes Auto (Bld) [#/Vol] Ordered By: Josué Napier on 12-20-2022 Monocytes (Bld) [#/Vol] 0.4 10*3/uL 0.0-0.8 [facility] Monocytes/100 WBC Auto (Bld) Ordered By: Josué Napier on 12-20-2022 Monocytes/100 WBC (Bld) 4.1 % . [facility] Neutrophils Auto (Bld) [#/Vo l]Ordered By: Josué Napier on 12-20-2022 Neutrophils (Bld) [#/Vol] 6.8 10*3/uL 1.8-7.7 [facility] Neutrophils/100 WBC Auto (Bl d)Ordered By: Josué Napier on 12-20-2022 Neutrophils/100 WBC (Bld) 67.7 % . [facility] Nitrite Test strip Ql (U)Ord ered By: Josué Napier on 12-20-2022 Nitrite Ql (U) Negative Negative [facility] No Panel InformationOrdered By: Josué Napier on 12-20-2022 Estimated GFR (CKD-EPI) > 60.0 mL/Min [facility] Pharmacy Creatinine Clearance (Chem 168.35 [facility] Nucleated erythrocytes [Pres ence] in Blood by Automated countOrdered By: Josué Napier on 12-20-2022 Nucleated RBC Auto Ql (Bld) 0.1 /100{WBC} 0-0.5 [facility] Opiates [Presence] in Urine by Screen methodOrdered By: Josué Napier on 12-20-2022 Opiates Screen Ql (U) Negative Negative [facility] Phencyclidine Screen Ql (U)O rdered By: Josué Napier on 12-20-2022 Phencyclidine Ql (U) Negative Negative [facility] Platelet mean volume Auto (B ld) [Entitic vol]Ordered By: Josué Napier on 12-20-2022 Platelet mean volume (Bld) [Entitic vol] 8.3 fL 6.3-10.7 [facility] Platelet poor plasma interna tional normalized ratio (INR) by coagulation assay (relatOrdered By: Josué Napier on 12-20-2022 INR Coag (PPP) [Relative time] 1.0 {INR} [facility] Comment on above: INR Therapeutic Rang e [...] 12-20-2022 Platelets (Bld) [#/Vol] 349 10*3/uL 150-450 [facility] Potassium [Moles/volume] in Serum or PlasmaOrdered By: Josué Napier on 12-20-2022 Potassium [Moles/Vol] 3.9 mmol/L 3.5-5.1 [facility] Protein Auto test strip (U) [Mass/Vol]Ordered By: Josué Napier on 12-20-2022 Protein (U) [Mass/Vol] Negative Negative [facility] Protein [Mass/volume] in Ser um or PlasmaOrdered By: Josué Napier on 12-20-2022 Protein [Mass/Vol] 7.5 g/dL 6.4-8.9 [facility] RBC Auto (Bld) [#/Vol]Ordere d By: Josué Napier on 12-20-2022 RBC (Bld) [#/Vol] 4.68 10*6/uL 3.60-5.00 [facility] Serum or plasma albumin/glob ulin mass ratioOrdered By: Josué Napier on 12-20-2022 Albumin/Globulin [Mass ratio] 1.4 {ratio} [facility] Serum or plasma anion gap de terminationOrdered By: Josué Napier on 12-20-2022 Anion gap [Moles/Vol] 10.3 mmol/L 6.0-15.0 [facility] Sodium [Moles/volume] in Ser um or PlasmaOrdered By: Josué Napier on 12-20-2022 Sodium [Moles/Vol] 139 mmol/L 136-145 [facility] Specific gravity Auto test s trip (U) [Rel density]Ordered By: Josué Napier on 12-20-2022 Specific gravity (U) [Rel density] 1.005 1.001-1.03 0 [facility] Thyrotropin [Units/volume] i n Serum or PlasmaOrdered By: Josué Napier on 12-20-2022 TSH Qn 0.23 m[IU]/L 0.45-5.33 [facility] Thyroxine (T4) [Mass/volume] in Serum or PlasmaOrdered By: Josué Napier on 12-20-2022 T4 [Mass/Vol] 9.01 ug/dL 5.39-11.82 [facility] Troponin I.cardiac [Mass/vol ume] in Serum or Plasma by Detection limit <= 0.01 ng/Ordered By: Josué Napier on 12-20-2022 Troponin I.cardiac DL <= 0.01 ng/mL [Mass/Vol] < 2.3 pg/mL 0.0-15.0 [facility] Urea nitrogen [Mass/volume] in Serum or PlasmaOrdered By: Josué Napier on 12-20-2022 Urea nitrogen [Mass/Vol] 9 mg/dL 7-25 [facility] Urine clarity by refractomet ry automatedOrdered By: Josué Napier on 12-20-2022 Clarity Refractometry automated (U) Clear Clear [facility] Urine glucose measurement by automated test strip (mass/volume)Ordered By: Josué Napier on 12-20-2022 Glucose Auto test strip (U) [Mass/Vol] Normal mg/dL Normal [facility] Urine hemoglobin detection b y automated test stripOrdered By: Josué Napier on 12-20-2022 Hemoglobin Auto test strip Ql (U) Negative Negative [facility] Urine leukocyte esterase det ection by automated test stripOrdered By: Josué Napier on 12-20-2022 Leukocyte esterase Auto test strip Ql (U) Negative Negative [facility] Urobilinogen Auto test strip (U) [Mass/Vol]Ordered By: Josué Napier on 12-20-2022 Urobilinogen (U) [Mass/Vol] Normal mg/dL Normal [facility] WBC Auto (Bld) [#/Vol]Ordere d By: Josué Napier on 12-20-2022 WBC (Bld) [#/Vol] 10.0 10*3/uL 3.8-11.6 [facility] pH Auto test strip (U)Ordere d By: Josué Napier on 12-20-2022 pH (U) 6.5 [pH] 5.0-9.0 [facility] Office Visit (Cardiology)on 12-08-2022 Follow-up visit Diagnoses/Problems [...] Metabolic Panel; Status:Active - Retrospective Authorization; Requested for:[id number]; TSH - Thyroid Stimulating Hormone, Serum; Status:Active - Retrospective Authorization; Requested for:[id number]; Vitamin D 25-Hydroxy; Status:Need Information - ABN Disposition,Retrospective Authorization; Requested for:[id number]; Morbid obesity with BMI of 40.0-44.9, adult Healthy Weight Tips; Status:Complete - Retrospective Authorization; Done: [id number] Some eating tips that can help you lose weight.; Status:Complete - Retrospective Authorization; Done: 24Ony0997 Palpitations Renew: Metoprolol Succinate ER 50 MG Oral Tablet Extended Release 24 Hour; TAKE 1 TABLET BY MOUTH EVERY DAY PVC (premature ventricular contraction) IO EKG Electrocardiogram- 12 Lead; Status:Complete; Done: [id number] SocHx: Former smoker Tobacco Use Screening; Status:Complete; Done: [id number] Patient Instructions Please bring all medicines, vitamins, [...] have nerve ablations in back with the [place] [facility]. The provider reviewed the following [...] TWICE A DAY Vitamin D3 1.25 MG (58917 UT) Oral CapsuleTAKE 1 CAPSULE Daily Allergies Medication No Known Drug Allergies Recorded By: Suzie Turner; 10/21/2017 2:10:00 PM Social History Problems Daily caf (more content not included)... Normal [employer] Tobacco Screening.on 023 Tobacco use status CPHS b) No [facility] DO Work Phone: Echocardiogramon 11-25-[address], [address] [place] [address] TRANSTHORACIC ECHOCARDIOGRAM REPORT Patient Name: LUPE Horne Physician: [id number] Azam Mortensen MD Study Date: 11/25/2022 Referring Physician: PHILLIP BENJAMIN MRN/PID: [id number] PCP: Donya Billings MD Accession/Order#: [id number] Department Location: [facility] Date of : 1975 Fellow: Gender: F Nurse: Admit Date: Supervisor Sound Technician: Shila Tripp [facility], T Height: 170.18 cm CC Report to: Weight: 121.56 kg Study Type: Echocardiogram BSA: 2.29 m2 Blood Pressure: 120 /82 mmHg Diagnosis/ICD: I47.1-Supraventricular tachycardia; I49.3-Ventricular premature depolarization; R00.2-Palpitations Indication: Chest Pain, Former Smoker, Morbid Obesity, Hypothyroid, Anxiety, Shortness of Breath, Marijuana Use Procedure/CPT: Echo Complete w Full Doppler-[id number] Study Detail: The following Echo studies were [...] 0.8 m/s (0.6-0.9m/s) PV Max P.8 mmHg [id number] Azam Mortensen MD Electronically signed on 11/25/2022 at 5:29:01 PM Final Normal [facility] Troponin I.cardiac [Mass/vol ume] in Serum or Plasma by Detection limit <= 0.01 ng/Ordered By: Yogi Michaels on 11-06-2022 Troponin I.cardiac DL <= 0.01 ng/mL [Mass/Vol] < 2.3 pg/mL 0.0-15.0 [facility] Activated partial thrombopla stin time (aPTT) in platelet poor plasma by coagulation aOrdered By: Yogi Michaels on 11-05-2022 aPTT Coag (PPP) [Time] 31.7 s 25.1-36.5 [facility] Basophils Auto (Bld) [#/Vol] Ordered By: Yogi Michaels on 11-05-2022 Basophils (Bld) [#/Vol] 0.1 10*3/uL 0.0-0.2 [facility] Basophils/100 WBC Auto (Bld) Ordered By: Yogi Michaels on 11-05-2022 Basophils/100 WBC (Bld) 0.8 % . [facility] Calcium [Mass/volume] in Ser um or PlasmaOrdered By: Yogi Michaels on 11-05-2022 Calcium [Mass/Vol] 8.6 mg/dL 8.6-10.3 [facility] Carbon dioxide, total [Moles /volume] in Serum or PlasmaOrdered By: Yogi Michaels on 11-05-2022 CO2 [Moles/Vol] 26.4 mmol/L 21.0-31.0 [facility] Chloride [Moles/volume] in S zakia or PlasmaOrdered By: Yogi Michaels on 11-05-2022 Chloride [Moles/Vol] 105 mmol/L 98-107 [facility] Creatinine [Mass/volume] in Serum or PlasmaOrdered By: Yogi Michaels on 11-05-2022 Creatinine [Mass/Vol] 0.58 mg/dL 0.60-1.20 [facility] Eosinophils Auto (Bld) [#/Vo l]Ordered By: Yogi Michaels on 11-05-2022 Eosinophils (Bld) [#/Vol] 0.1 10*3/uL 0.0-0.45 [facility] Eosinophils/100 WBC Auto (Bl d)Ordered By: Yogi Michaels on 11-05-2022 Eosinophils/100 WBC (Bld) 0.9 % . [facility] Erythrocyte distribution wid th Auto (RBC) [Ratio]Ordered By: Yogi Michaels on 11-05-2022 Erythrocyte distribution width (RBC) [Ratio] 14.2 % 11.9-15.3 [facility] Glucose [Mass/volume] in Ser um or PlasmaOrdered By: Yogi Michaels on 11-05-2022 Glucose [Mass/Vol] 74 mg/dL 70-100 [facility] Comment on above: ADA recommended refe rence rangeRandom Glucose Reference Range is dependent on time and content of last meal. Glucose of more than 200 mg/dL in a nonstressed, ambulatory subject supports the diagnosis of Diabetes Mellitus. Hematocrit Auto (Bld) [Volum e fraction]Ordered By: Yogi Michaels on 11-05-2022 Hematocrit (Bld) [Volume fraction] 39.8 % 34.0-46.4 [facility] Hemoglobin [Mass/volume] in BloodOrdered By: Yogi Michaels on 11-05-2022 Hemoglobin (Bld) [Mass/Vol] 13.8 g/dL 11.8-15.4 [facility] Laboratory - CoagulationOrde red By: Yogi Michaels on 11-05-2022 PT Coag (PPP) [Time] 12.6 s 9.0-12.9 [facility] Leukocytes [#/volume] correc emily for nucleated erythrocytes in Blood by Automated counOrdered By: Yogi Michaels on 11-05-2022 WBC corrected for nucl RBC Auto (Bld) [#/Vol] 11.9 10*3/uL 3.8-11.6 [facility] Lymphocytes Auto (Bld) [#/Vo l]Ordered By: Yogi Michaels on 11-05-2022 Lymphocytes (Bld) [#/Vol] 2.4 10*3/uL 1.00-4.8 [facility] Lymphocytes/100 WBC Auto (Bl d)Ordered By: Yogi Michaels on 11-05-2022 Lymphocytes/100 WBC (Bld) 20.0 % . [facility] MCH Auto (RBC) [Entitic mass ]Ordered By: Yogi Michaels on 11-05-2022 MCH (RBC) [Entitic mass] 30.3 pg 24.7-34.3 [facility] MCHC Auto (RBC) [Mass/Vol]Or dered By: Yogi Michaels on 11-05-2022 MCHC (RBC) [Mass/Vol] 34.7 g/dL 32.0-35.0 [facility] MCV Auto (RBC) [Entitic vol] Ordered By: Yogi Michaels on 11-05-2022 MCV (RBC) [Entitic vol] 87.5 fL 80-100 [facility] Magnesium [Mass/volume] in S zakia or PlasmaOrdered By: Yogi Michaels on 11-05-2022 Magnesium [Mass/Vol] 1.5 mg/dL 1.9-2.7 [facility] Monocyte distribution width [Entitic volume] in Blood by AutomatedOrdered By: Yogi Michaels on 11-05-2022 Monocyte distribution width Auto (Bld) [Entitic vol] 17.86 % 0.00-20.00 [facility] Monocytes Auto (Bld) [#/Vol] Ordered By: Yogi Michaels on 11-05-2022 Monocytes (Bld) [#/Vol] 0.7 10*3/uL 0.0-0.8 [facility] Monocytes/100 WBC Auto (Bld) Ordered By: Yogi Michaels on 11-05-2022 Monocytes/100 WBC (Bld) 5.8 % . [facility] Natriuretic peptide B [Mass/ Vol]Ordered By: Ygoi Michaels on 11-05-2022 Natriuretic peptide B (Bld) [Mass/Vol] 16.0 pg/mL 5-100 [facility] Neutrophils Auto (Bld) [#/Vo l]Ordered By: Yogi Michaels on 11-05-2022 Neutrophils (Bld) [#/Vol] 8.6 10*3/uL 1.8-7.7 [facility] Neutrophils/100 WBC Auto (Bl d)Ordered By: Yogi Michaels on 11-05-2022 Neutrophils/100 WBC (Bld) 72.5 % . [facility] No Panel InformationOrdered By: Yogi Michaels on 11-05-2022 Estimated GFR (CKD-EPI) > 60.0 mL/Min [facility]acy Creatinine Clearance (Chem 166.57 [facility] Nucleated erythrocytes [Pres ence] in Blood by Automated countOrdered By: Yogi Michaels on 11-05-2022 Nucleated RBC Auto Ql (Bld) 0.1 /100{WBC} 0-0.5 [facility] Phosphate [Mass/volume] in S zakia or PlasmaOrdered By: Yogi Michaels on 11-05-2022 Phosphate [Mass/Vol] 3.9 mg/dL 3.7-7.2 [facility] Platelet mean volume Auto (B ld) [Entitic vol]Ordered By: Yogi Michaels on 11-05-2022 Platelet mean volume (Bld) [Entitic vol] 8.1 fL 6.3-10.7 [facility] Platelet poor plasma interna tional normalized ratio (INR) by coagulation assay (relatOrdered By: Yogi Michaels on 11-05-2022 INR Coag (PPP) [Relative time] 1.1 {INR} [facility] Comment on above: INR Therapeutic Rang e [...] 11-05-2022 Platelets (Bld) [#/Vol] 336 10*3/uL 150-450 [facility] Potassium [Moles/volume] in Serum or PlasmaOrdered By: Yogi Michaels on 11-05-2022 Potassium [Moles/Vol] 3.5 mmol/L 3.5-5.1 [facility] RBC Auto (Bld) [#/Vol]Ordere d By: Yogi Michaels on 11-05-2022 RBC (Bld) [#/Vol] 4.55 10*6/uL 3.60-5.00 [facility] Serum or plasma anion gap de terminationOrdered By: Yogi Michaels on 11-05-2022 Anion gap [Moles/Vol] 11.1 mmol/L 6.0-15.0 [facility] Sodium [Moles/volume] in Ser um or PlasmaOrdered By: Yogi Michaels on 11-05-2022 Sodium [Moles/Vol] 139 mmol/L 136-145 [facility] Urea nitrogen [Mass/volume] in Serum or PlasmaOrdered By: Yogi Michaels on 11-05-2022 Urea nitrogen [Mass/Vol] 10 mg/dL 7-25 [facility] WBC Auto (Bld) [#/Vol]Ordere d By: Yogi Michaels on 11-05-2022 WBC (Bld) [#/Vol] 11.9 10*3/uL 3.8-11.6 [facility] Cardiac Stress Teston 2022 [facility] [address] [place] [address], [address] [place] [address] Exercise Stress Test Patient Name: LUPE PICKARD Ordering Physician: [id number] Phillip Benjamin MD Study Date: 10/28/2022 Reading Physician: [id number] Asher MD, [facility] MRN/PID: [id number] Supervising Physician: Cristian Asher MD, [facility] Accession/Order#: [id number] Referring Physician: PHILLIP BENJAMIN Date of : 1975 PCP: Donya Billings MD Gender: F Fellow: Height: 170.18 cm Nurse: Randall Hinton RN Weight: 121.56 kg Supervisor Sound Technician: REFUGIO BSA: 2.29 m2 Technologist: BMI: 41.98 Additional Staff: kg/m2 Age: 47 years cc report to: Patient Location: cc report to: [id number] Phillip Benjamin MD Study Type: Cardiac Stress Test Diagnosis/ICD: I47.1-Supraventricular tachycardia; R00.2-Palpitations; I49.3-Ventricular premature depolarization Indication: ATACH Procedure/CPT: Stress Test Interpretation-[id number]; Stress Test Supervision-[id number] Falls Risk: Low: Patient has low risk [...] favorable. 2. Adequate level of stress achieved. [id number] Ric Asher MD, [facility] Electronically signed on 10/29/2022 at 1:49:55 PM Final Normal [facility] Cardiac Stress Test [facility] [address] [place] Work Phone: Office Visit [...] Weight Tips; Status:Complete - Retrospective Authorization; Done: [id number] Some eating tips that can help you lose weight.; Status:Complete - Retrospective Authorization; Done: [id number] SocHx: Former smoker Tobacco Use Screening; Status:Complete; Done: [id number] Patient Instructions Please bring all medicines, vitamins, [...] DAILY. Melato (more content not included)... Normal [employer] Tobacco Screening.on 023 Tobacco use status CPHS b) No [facility] [facility] [address] [place] Work Phone: Progress Noteson 09-02-2022 [employer] Multi Sensor Operator Authentication Interface Message Text CONSULTED BY: [...] she can follow up PRN. Normal [employer] Multi Sensor Operator Authentication Interface Message Text Patient was identified by name and date of . Susan Lomeli RN Patient at risk for falls:No Falls Risk protocol implemented: No Normal [employer] [facility] Alanine aminotransferase [En zymatic activity/volume] in Serum or PlasmaOrdered By: Kenyetta Dove on 08-10-2022 ALT [Catalytic activity/Vol] 14 U/L 7-52 [facility] Albumin [Mass/volume] in Ser um or Plasma by Bromocresol green (BCG) dye binding methoOrdered By: Kenyetta Dove on 08-10-2022 Albumin BCG dye [Mass/Vol] 4.0 g/dL 3.5-5.7 [facility] Alkaline phosphatase [Enzyma tic activity/volume] in Serum or PlasmaOrdered By: Kenyetta Dove on 08-10-2022 ALP [Catalytic activity/Vol] 43 U/L 34-104 [facility] Aspartate aminotransferase [ Enzymatic activity/volume] in Serum or PlasmaOrdered By: Kenyetta Dove on 08-10-2022 AST [Catalytic activity/Vol] 10 U/L 13-39 [facility] Basophils Auto (Bld) [#/Vol] Ordered By: Kenyetta Dove on 08-10-2022 Basophils (Bld) [#/Vol] 0.0 10*3/uL 0.0-0.2 [facility] Basophils/100 WBC Auto (Bld) Ordered By: Kenyetta Dove on 08-10-2022 Basophils/100 WBC (Bld) 0.5 % . [facility] Bilirubin.total [Mass/volume ] in Serum or PlasmaOrdered By: Kenyetta Dove 08-10-2022 Bilirubin [Mass/Vol] 0.6 mg/dL 0.3-1.0 [facility] Calcium [Mass/volume] in Ser um or PlasmaOrdered By: Kenyetta Dove 08-10-2022 Calcium [Mass/Vol] 9.0 mg/dL 8.6-10.3 [facility] Carbon dioxide, total [Moles /volume] in Serum or PlasmaOrdered By: Kenyetta Dove 08-10-2022 CO2 [Moles/Vol] 29.0 mmol/L 21.0-31.0 [facility] Chloride [Moles/volume] in S zakia or PlasmaOrdered By: Kenyetta Dove 08-10-2022 Chloride [Moles/Vol] 104 mmol/L 98-107 [facility] Cholesterol [Mass/volume] in Serum or PlasmaOrdered By: Kenyetta Dove on 08-10-2022 Cholesterol [Mass/Vol] 145 mg/dL 140-200 [facility] Comment on above: Chol less than 200 m g/dl low riskChol 201-239 mg/dl borderline riskChol 240 mg/dl and greater high risk Cholesterol in LDL Calc [Mas s/Vol]Ordered By: Kenyetta Dove on 08-10-2022 Cholesterol in LDL [Mass/Vol] 64 mg/dL 0-100 [facility] Comment on above: LDL ATP III CLASSIFI CATIONLDL less than 100 mg/dL OptimalLDL 100-129 mg/dL Near or above optimalLDL 130-159 mg/dL Borderline highLDL 160-189 mg/dL HighLDL greater than 189 mg/dL Very high Cholesterol in VLDL Calc [Ma ss/Vol]Ordered By: Kenyetta Dove on 08-10-2022 Cholesterol in VLDL [Mass/Vol] 27 mg/dL [facility] Creatinine [Mass/volume] in Serum or PlasmaOrdered By: Kenyetta Doev on 08-10-2022 Creatinine [Mass/Vol] 0.52 mg/dL 0.60-1.20 [facility] Eosinophils Auto (Bld) [#/Vo l]Ordered By: Kenyetta Dove on 08-10-2022 Eosinophils (Bld) [#/Vol] 0.1 10*3/uL 0.0-0.45 [facility] Eosinophils/100 WBC Auto (Bl d)Ordered By: Kenyetta Dove on 08-10-2022 Eosinophils/100 WBC (Bld) 1.3 % . [facility] Erythrocyte distribution wid th Auto (RBC) [Ratio]Ordered By: Kenyetta Dove on 08-10-2022 Erythrocyte distribution width (RBC) [Ratio] 14.6 % 11.9-15.3 [facility] Follitropin [Units/volume] i n Serum or PlasmaOrdered By: Kenyetta Dove on 08-10-2022 Follitropin Qn 5.9 m[IU]/mL [facility] Comment on above: FEMALE NORMALS (GERHARD ENOPAUSE) MID-FOLLICULAR PHASE: 3.9-8.8 mIU/mL MID-CYCLE PEAK: 4.5-22.5 mIU/mL MID-LUTEAL PHASE: 1.8-5.1 mIU/mLFEMALE NORMALS (POSTMENOPAUSE): 16.7-113.6 mIU/mLMALE NORMALS: 1.3-19.3 mIU/mL Globulin Calc (S) [Mass/Vol] Ordered By: Kenyetta Dove on 08-10-2022 Globulin (S) [Mass/Vol] 2.3 g/dL [facility] Glucose [Mass/volume] in Ser um or PlasmaOrdered By: Kenyetta Dove on 08-10-2022 Glucose [Mass/Vol] 98 mg/dL 74-109 [facility] Comment on above: ADA recommended refe [...] from glycated hemoglobin (Bld) [Mass/Vol] 117 mg/dL [facility] Hematocrit Auto (Bld) [Volum e fraction]Ordered By: Kenyetta Dove on 08-10-2022 Hematocrit (Bld) [Volume fraction] 37.0 % 34.0-46.4 [facility] Hemoglobin A1c percentageOrd ered By: Kenyetta Dove on 08-10-2022 HbA1c (Bld) [Mass fraction] 5.7 % 4.3-5.6 [facility] Comment on above: Increased risk for d iabetes: 5.7 - 6.4diabetes: >6.4glycemic control for adults with diabetes: <7.0 Hemoglobin [Mass/volume] in BloodOrdered By: Kenyetta Dove on 08-10-2022 Hemoglobin (Bld) [Mass/Vol] 12.5 g/dL 11.8-15.4 [facility] Laboratory - Chemistry and C hemistry - challengeOrdered By: Kenyetta Dove on 08-10-2022 GFR/1.73 sq M.predicted MDRD (S/P/Bld) [Vol rate/Area] mL/min/{1.73_m2} [facility] Leukocytes [#/volume] correc emily for nucleated erythrocytes in Blood by Automated counOrdered By: Kenyetta Dove on 08-10-2022 WBC corrected for nucl RBC Auto (Bld) [#/Vol] 8.3 10*3/uL 3.8-11.6 [facility] Lymphocytes Auto (Bld) [#/Vo l]Ordered By: Kenyetta Dove on 08-10-2022 Lymphocytes (Bld) [#/Vol] 2.3 10*3/uL 1.00-4.8 [facility] Lymphocytes/100 WBC Auto (Bl d)Ordered By: Kenyetta Dove on 08-10-2022 Lymphocytes/100 WBC (Bld) 28.1 % . [facility] MCH Auto (RBC) [Entitic mass ]Ordered By: Kenyetta Dove on 08-10-2022 MCH (RBC) [Entitic mass] 29.7 pg 24.7-34.3 [facility] MCHC Auto (RBC) [Mass/Vol]Or dered By: Kenyetta Dove on 08-10-2022 MCHC (RBC) [Mass/Vol] 33.7 g/dL 32.0-35.0 [facility] MCV Auto (RBC) [Entitic vol] Ordered By: Kenyetta Dove on 08-10-2022 MCV (RBC) [Entitic vol] 88.0 fL 80-100 [facility] Microalbumin [Mass/volume] i n UrineOrdered By: Kenyetta Dove on 08-10-2022 Albumin DL <= 20 mg/L (U) [Mass/Vol] mg/dL 0.0-1.8 [facility] Monocytes Auto (Bld) [#/Vol] Ordered By: Kenyetta Dove on 08-10-2022 Monocytes (Bld) [#/Vol] 0.3 10*3/uL 0.0-0.8 [facility] Monocytes/100 WBC Auto (Bld) Ordered By: Kenyetta Dove on 08-10-2022 Monocytes/100 WBC (Bld) 3.9 % . [facility] Neutrophils Auto (Bld) [#/Vo l]Ordered By: Kenyetta Dove on 08-10-2022 Neutrophils (Bld) [#/Vol] 5.5 10*3/uL 1.8-7.7 [facility] Neutrophils/100 WBC Auto (Bl d)Ordered By: Kenyetta Dove on 08-10-2022 Neutrophils/100 WBC (Bld) 66.2 % . [facility] No Panel InformationOrdered By: Kenyetta Dove on 08-10-2022 Pharmacy Creatinine Clearance (Chem N/A [facility] Nucleated erythrocytes [Pres ence] in Blood by Automated countOrdered By: Kenyetta Dove on 08-10-2022 Nucleated RBC Auto Ql (Bld) 0.1 /100{WBC} 0-0.5 [facility] Platelet mean volume Auto (B ld) [Entitic vol]Ordered By: Kenyetta Dove on 08-10-2022 Platelet mean volume (Bld) [Entitic vol] 8.2 fL 6.3-10.7 [facility] Platelets Auto (Bld) [#/Vol] Ordered By: Kenyetta Dove on 08-10-2022 Platelets (Bld) [#/Vol] 313 10*3/uL 150-450 [facility] Potassium [Moles/volume] in Serum or PlasmaOrdered By: Kenyetta Dove on 08-10-2022 Potassium [Moles/Vol] 4.1 mmol/L 3.5-5.1 [facility] Protein [Mass/volume] in Ser um or PlasmaOrdered By: Kenyetta Dove on 08-10-2022 Protein [Mass/Vol] 6.3 g/dL 6.4-8.9 [facility] RBC Auto (Bld) [#/Vol]Ordere d By: Kenyetta Dove on 08-10-2022 RBC (Bld) [#/Vol] 4.20 10*6/uL 3.60-5.00 [facility] Serum or plasma albumin/glob ulin mass ratioOrdered By: Kenyetta Dove on 08-10-2022 Albumin/Globulin [Mass ratio] 1.7 {ratio} [facility] Serum or plasma anion gap de terminationOrdered By: Kenyetta Dove on 08-10-2022 Anion gap [Moles/Vol] 10.1 mmol/L 6.0-15.0 [facility] Serum or plasma high density lipoprotein (HDL) cholesterol measurementOrdered By: Kenyetta Dove on 08-10-2022 Cholesterol in HDL [Mass/Vol] 53 mg/dL 35-85 [facility] Comment on above: HDL CHOL ATP-III CLA SSIFICATION Cardiovascular RiskHDL > or equal to 60 mg/dL LOWHDL < 40 mg/dL HIGH Serum or plasma lutropin lisa surement (units/volume)Ordered By: Kenyetta Dove on 08-10-2022 Lutropin Qn 14.0 m[IU]/mL . [facility] Comment on above: Adult Female: Follic ular phase 2.4 - 12.6 Ovulation phase 14.0 - 95.6 Luteal phase 1.0 - 11.4 Postmenopausal 7.7 - 58.5 Serum or plasma progesterone measurement (mass/volume)Ordered By: Kenyetta Dove on 08-10-2022 Progesterone [Mass/Vol] 0.2 ng/mL . [facility] Comment on above: Follicular phase 0.1 - 0.9 Luteal phase 1.8 - 23.9 Ovulation phase 0.1 - 12.0 First trimester 11.0 - 44.3 Second trimester 25.4 - 83.3 Third trimester 58.7 - 214.0 Postmenopausal 0.0 - 0.1Performed at: - [facility] [address] [id number] Director: Ramirez Ca PhD, Phone: [phone] Serum or plasma total choles terol/high density lipoprotein (HDL) cholesterol mass ratOrdered By: Kenyetta Dove on 08-10-2022 Cholesterol.total/Cho lesterol in HDL [Mass ratio] 2.7 {ratio} <5.0 [facility] Sodium [Moles/volume] in Ser um or PlasmaOrdered By: Kenyetta Dove on 08-10-2022 Sodium [Moles/Vol] 139 mmol/L 136-145 [facility] Thyrotropin [Units/volume] i n Serum or PlasmaOrdered By: Kenyetta Dove on 08-10-2022 TSH Qn 0.31 m[IU]/L 0.45-5.33 [facility] Thyroxine (T4) free [Mass/vo lume] in Serum or PlasmaOrdered By: Kenyetta Dove on 08-10-2022 Free T4 [Mass/Vol] 0.80 ng/dL 0.61-1.12 [facility] Total estrogen measurementOr dered By: Kenyetta Dove on 08-10-2022 Estrogen [Mass/Vol] 310 pg/mL . [facility] Comment on above: Prepubertal < 40 Fem giacomo Cycle: 1-10 Days 16 - 328 11-20 Days 34 - 501 21-30 Days 48 - 350 Post-Menopausal 40 - 244Performed at: - [facility] [id number] Director: Roger Kenny MD, Phone: [phone] Triglyceride [Mass/volume] i n Serum or PlasmaOrdered By: Kenyetta Dove on 08-10-2022 Triglyceride [Mass/Vol] 139 mg/dL 0-149 [facility] Comment on above: TRIG ATP III CLASSIF ICATIONTRIG less than 150 mg/dL NormalTRIG 150-199 mg/dL Borderline highTRIG 200-500 mg/dL High TRIG greater than 500 mg/dL Very highStandard traceable to the Center for Disease Conrtrol and Prevention (CDC) test method. Triiodothyronine (T3) Free [ Mass/volume] in Serum or PlasmaOrdered By: Kenyetta Dove on 08-10-2022 Free T3 [Mass/Vol] 3.85 pg/mL 2.50-3.90 [facility] Urea nitrogen [Mass/volume] in Serum or PlasmaOrdered By: Kenyetta Dove on 08-10-2022 Urea nitrogen [Mass/Vol] 8 mg/dL 7-25 [facility] Vitamin D+Metabolites [Mass/ volume] in Serum or PlasmaOrdered By: Kenyetta Dove on 08-10-2022 Vitamin D+Metabolites [Mass/Vol] 36.0 ng/mL 30-100 [facility] Comment on above: VITAMIN D STATUS 25( [place])VITAMIN D RANGE (ng/mL) Deficient <20 Insufficient 20 to <30Sufficient 30 to 100Reference: Kirby MF,Adonay NC, Shantelle HOLLOWAY, et al. Evaluation,treatment, and prevention of vitamin D deficiency; an Endocrine Society clinical practice guideline. JCEM. 2010; 96(7):1911-30. WBC Auto (Bld) [#/Vol]Ordere d By: Naveedpatrick Dove on 08-10-2022 WBC (Bld) [#/Vol] 8.3 10*3/uL 3.8-11.6 [facility] Office Visit (Cardiology)on 07-28-2022 Follow-up visit [...] visit. 4 months with EKG Retrieve [facility] [place] Chief Complaint LUPE PICKARD is being seen [...] TWICE A DAY Vitamin D3 1.25 MG (37524 UT) Oral CapsuleTAKE 1 CAPSULE Daily Allergies Medication No Known Drug Allergies Recorded By: Suzie Turner; 10/21/2017 2:10:00 PM Social History Problems Daily caffeine consumption Former smoker (V15.82) (Z87.891) quit 01/28/22 Illicit drug use (305.90) (F19.90) [facility] Social alcohol use (V49.89) (Z78.9) Review of Systems Constitutional: not feeling tired. Cardiovascular: chest pain and palpitations, but no intermittent leg claudication and as noted in HPI. Respiratory: no cough and no shortness of breath. Gastrointestinal: no change in bowel habits and no blood in stools. Integumentary: no skin rashes. Neurological: (more content not included)... Normal [employer] Tobacco Screening.on 023 Fall risk assessment c) Not medically indicated [facility] DO Work Phone: Tobacco use status CP b) No [facility] DO Work Phone: Tobacco Screening. Yes [facility] DO Work Phone: No Panel Informationon 07-16 [facility] DO Work Phone: Basophils Auto (Bld) [#/Vol] Ordered By: Steve Coronel on 06-21-2022 Basophils (Bld) [#/Vol] 0.1 10*3/uL 0.0-0.2 [facility] Basophils/100 WBC Auto (Bld) Ordered By: Steve Coronel on 06-21-2022 Basophils/100 WBC (Bld) 0.6 % . [facility] Bilirubin Test strip Ql (U)O rdered By: Steve Coronel on 06-21-2022 Bilirubin Ql (U) Negative Negative [facility] Body fluid albumin measureme nt (mass/volume)Ordered By: Steve Coronel on 06-21-2022 Albumin (Body fld) [Mass/Vol] 3.7 g/dL 3.2-5.5 [facility] Color Auto (U)Ordered By: Eduardo Coronel on 06-21-2022 Color (U) Yellow Yellow [facility] Creatinine and Glomerular fi ltration rate.predicted panel (S/P/Bld)Ordered By: Steve Coronel on 06-21-2022 Creatinine [Mass/Vol] 0.51 mg/dL 0.44-1.03 [facility] Eosinophils Auto (Bld) [#/Vo l]Ordered By: Steve Coronel on 06-21-2022 Eosinophils (Bld) [#/Vol] 0.1 10*3/uL 0.0-0.45 [facility] Eosinophils/100 WBC Auto (Bl d)Ordered By: Steve Coronel on 06-21-2022 Eosinophils/100 WBC (Bld) 1.2 % . [facility] Erythrocyte distribution wid th Auto (RBC) [Ratio]Ordered By: Steve Coronel on 06-21-2022 Erythrocyte distribution width (RBC) [Ratio] 15.0 % 11.9-15.3 [facility] Estimated glomerular filtrat ion rate (GFR) non- AmericanOrdered By: Steve Coronel on 06-21-2022 GFR/1.73 sq M.predicted among non-blacks MDRD (S/P/Bld) [Vol rate/Area] > 60 mL/Min [facility] Globulin Calc (S) [Mass/Vol] Ordered By: Steve Coronel on 06-21-2022 Globulin (S) [Mass/Vol] 3.1 g/dL [facility] Hematocrit Auto (Bld) [Volum e fraction]Ordered By: Steve Coronel on 06-21-2022 Hematocrit (Bld) [Volume fraction] 40.1 % 34.0-46.4 [facility] Hemoglobin [Mass/volume] in BloodOrdered By: Steve Coronel on 06-21-2022 Hemoglobin (Bld) [Mass/Vol] 13.2 g/dL 11.8-15.4 [facility] Ketones Auto test strip (U) [Mass/Vol]Ordered By: Steve Coronel on 06-21-2022 Ketones (U) [Mass/Vol] Negative Negative [facility] Laboratory - Chemistry and C hemistry - challengeOrdered By: Steve Coronle on 06-21-2022 Lipase [Catalytic activity/Vol] 28.0 U/L 22-51 [facility] Natriuretic peptide B (Bld) [Mass/Vol] 35.0 pg/mL 5-100 [facility] Leukocytes [#/volume] correc emily for nucleated erythrocytes in Blood by Automated counOrdered By: Steve Coronel on 06-21-2022 WBC corrected for nucl RBC Auto (Bld) [#/Vol] 9.5 10*3/uL 3.8-11.6 [facility] Lymphocytes Auto (Bld) [#/Vo l]Ordered By: Steve Coronel on 06-21-2022 Lymphocytes (Bld) [#/Vol] 2.8 10*3/uL 1.00-4.8 [facility] Lymphocytes/100 WBC Auto (Bl d)Ordered By: Steve Coronel on 06-21-2022 Lymphocytes/100 WBC (Bld) 29.5 % . [facility] MCH Auto (RBC) [Entitic mass ]Ordered By: Steve Coronel on 06-21-2022 MCH (RBC) [Entitic mass] 28.7 pg 24.7-34.3 [facility] MCHC Auto (RBC) [Mass/Vol]Or dered By: Steve Coronel on 06-21-2022 MCHC (RBC) [Mass/Vol] 33.0 g/dL 32.0-35.0 [facility] MCV Auto (RBC) [Entitic vol] Ordered By: Steve Coronel on 06-21-2022 MCV (RBC) [Entitic vol] 86.9 fL 80-100 [facility] Monocyte distribution width [Entitic volume] in Blood by AutomatedOrdered By: Steve Coronel on 06-21-2022 Monocyte distribution width Auto (Bld) [Entitic vol] 18.39 % 0.00-20.00 [facility] Monocytes Auto (Bld) [#/Vol] Ordered By: Steve Coronel on 06-21-2022 Monocytes (Bld) [#/Vol] 0.4 10*3/uL 0.0-0.8 [facility] Monocytes/100 WBC Auto (Bld) Ordered By: Steve Coronel on 06-21-2022 Monocytes/100 WBC (Bld) 3.8 % . [facility] Neutrophils Auto (Bld) [#/Vo l]Ordered By: Steve Coronel on 06-21-2022 Neutrophils (Bld) [#/Vol] 6.2 10*3/uL 1.8-7.7 [facility] Neutrophils/100 WBC Auto (Bl d)Ordered By: Steve Coronel on 06-21-2022 Neutrophils/100 WBC (Bld) 64.9 % . [facility] Nitrite Test strip Ql (U)Ord ered By: Steve Coronel on 06-21-2022 Nitrite Ql (U) Negative Negative [facility] No Panel InformationOrdered By: Steve Coronel on 06-21-2022 D-Dimer Quantitative (PE/DVT) < 200 ng/mL 0-243 [facility] Comment on above: The reference range for [...] conditions. Estimated GFR () > 60 mL/Min [facility] Comment on above: GFR estimated refere nce range: According to KDOQI guidelines, <60 ml/min/1.73m2 is sufficient to diagnose a patient with chronic kidney disease. Pharmacy Creatinine Clearance (Chem N/A [facility] Nucleated erythrocytes [Pres ence] in Blood by Automated countOrdered By: Steve Coronel on 06-21-2022 Nucleated RBC Auto Ql (Bld) 0.1 /100{WBC} 0-0.5 [facility] Platelet mean volume Auto (B ld) [Entitic vol]Ordered By: Steve Coronel on 06-21-2022 Platelet mean volume (Bld) [Entitic vol] 8.0 fL 6.3-10.7 [facility] Platelets Auto (Bld) [#/Vol] Ordered By: Steve Coronel on 06-21-2022 Platelets (Bld) [#/Vol] 356 10*3/uL 150-450 [facility] Protein Auto test strip (U) [Mass/Vol]Ordered By: Steve Coronel on 06-21-2022 Protein (U) [Mass/Vol] Negative Negative [facility] Protein [Mass/volume] in Ser um or PlasmaOrdered By: Steve Coronel on 06-21-2022 Protein [Mass/Vol] 6.8 g/dL 6.1-7.9 [facility] RBC Auto (Bld) [#/Vol]Ordere d By: Steve Coronel on 06-21-2022 RBC (Bld) [#/Vol] 4.61 10*6/uL 3.60-5.00 [facility] Serum or plasma alanine ott otransferase measurement without P-5'-P (enzymatic activiOrdered By: Steve Coronel on 06-21-2022 ALT No additional P-5'-P [Catalytic activity/Vol] 17 U/L 10-60 [facility] Serum or plasma albumin/glob ulin mass ratioOrdered By: Steve Coronel on 06-21-2022 Albumin/Globulin [Mass ratio] 1.2 {ratio} [facility] Serum or plasma alkaline chirag sphatase measurement (enzymatic activity/volume)Ordered By: Steve Coronel on 06-21-2022 ALP [Catalytic activity/Vol] 52 U/L 32-92 [facility] Serum or plasma anion gap de terminationOrdered By: Steve Coronel on 06-21-2022 Anion gap [Moles/Vol] 12.7 mmol/L 6.0-15.0 [facility] Serum or plasma aspartate am inotransferase measurement (enzymatic activity/volume)Ordered By: Steve Coronel on 06-21-2022 AST [Catalytic activity/Vol] 19 U/L 10-42 [facility] Serum or plasma calcium merari urement (mass/volume)Ordered By: Steve Coronel on 06-21-2022 Calcium [Mass/Vol] 9.1 mg/dL 8.2-10.2 [facility] Serum or plasma chloride lisa surement (moles/volume)Ordered By: Steve Coronel on 06-21-2022 Chloride [Moles/Vol] 100 mmol/L 95-114 [facility] Serum or plasma glucose merari urement (mass/volume)Ordered By: Steve Coronel on 06-21-2022 Glucose [Mass/Vol] 97 mg/dL 70-100 [facility] Comment on above: ADA recommended refe rence rangeRandom Glucose Reference Range is dependent on time and content of last meal. Glucose of more than 200 mg/dL in a nonstressed, ambulatory subject supports the diagnosis of Diabetes Mellitus. Serum or plasma potassium me asurement (moles/volume)Ordered By: Steve Coronel on 06-21-2022 Potassium [Moles/Vol] 3.9 mmol/L 3.5-5.1 [facility] Serum or plasma sodium measu rement (moles/volume)Ordered By: Steve Coronel on 06-21-2022 Sodium [Moles/Vol] 135 mmol/L 136-146 [facility] Serum or plasma total biliru bin measurement (mass/volume)Ordered By: Steve Coronel on 06-21-2022 Bilirubin [Mass/Vol] 0.6 mg/dL 0.3-1.2 [facility] Serum or plasma total carbon dioxide measurement (moles/volume)Ordered By: Steve Coronel on 06-21-2022 CO2 [Moles/Vol] 26.2 mmol/L 22.0-30.0 [facility] Serum or plasma urea nitroge n measurement (mass/volume)Ordered By: Steve Coronel on 06-21-2022 Urea nitrogen [Mass/Vol] 8 mg/dL 02-19 [facility] Specific gravity Auto test s trip (U) [Rel density]Ordered By: Steve Coronel on 06-21-2022 Specific gravity (U) [Rel density] 1.005 1.001-1.03 0 [facility] Troponin I.cardiac [Mass/vol ume] in Serum or Plasma by High sensitivity methodOrdered By: Steve Coronel on 06-21-2022 Troponin I.cardiac High sensitivity method [Mass/Vol] < 3 pg/mL 0-15 [facility] Urine clarity by refractomet ry automatedOrdered By: Steve Coronel on 06-21-2022 Clarity Refractometry automated (U) Clear Clear [facility] Urine glucose measurement by automated test strip (mass/volume)Ordered By: Steve Coronel on 06-21-2022 Glucose Auto test strip (U) [Mass/Vol] Normal mg/dL Normal [facility] Urine hemoglobin detection b y automated test stripOrdered By: Steve Coronel on 06-21-2022 Hemoglobin Auto test strip Ql (U) Negative Negative [facility] Urine leukocyte esterase det ection by automated test stripOrdered By: Steve Coronel on 06-21-2022 Leukocyte esterase Auto test strip Ql (U) Negative Negative [facility] Urobilinogen Auto test strip (U) [Mass/Vol]Ordered By: Steve Coronel on 06-21-2022 Urobilinogen (U) [Mass/Vol] Normal mg/dL Normal [facility] WBC Auto (Bld) [#/Vol]Ordere d By: Steve Coronel on 06-21-2022 WBC (Bld) [#/Vol] 9.5 10*3/uL 3.8-11.6 [facility] pH Auto test strip (U)Ordere d By: Steve Coronel on 06-21-2022 pH (U) 7.5 [pH] 5.0-9.0 [facility] Office Visit (Cardiology)on 06-04-2022 Follow-up visit Diagnoses/Problems [...] (COVID-19) RNA CESAR+probe Ql (Unsp spec) Positive [facility] Other COVID + FLU Quick Testing Negative [facility] Other [facility] 04-28-2022 S. pyogenes Org specific cx Ql (Throat) Negative [facility] Other [facility]VERT[facility] ELECTRONIC SIGNATURE TUAN NUNES POP SINGER (Electronic signature on file) Final Signed Out: 04/18/1998 09:51 [facility] CONVERTED FINAL DIAGNOSIS SPECIMEN ADEQUACY SATISFACTORY FOR EVALUATION GENERAL CATEGORIZATION WITHIN NORMAL LIMITS HORMONAL EVALUATION HORMONAL PATTERN COMPATIBLE WITH AGE AND HISTORY [facility] CONVERTED ORDERING PROVIDER Ordering Provider: PETER LOBO [facility] CONVERTED PAP DISCLAIMER The Pap test serves as a screening tool for early detection of cervical cancer. The Pap test does not represent a final diagnostic test for cervical cancer. Furthermore, the Pap test was not designed to screen for other malignancies (endometrial, ovarian cancer, etc....). False negatives and false positives have occurred. If clinically indicated, further patient evaluation is recommended. [facility] Vital Signs Date Time Vital Sign Value Performing Clinician Facility 01-11-2025 13:43-0400 Body mass index (BMI) [Ratio] 50.59 kg/m2 Dalia Risaliti EMERGENCY MEDICINE PHYSICIAN ASSISTANT Work Phone: [facility] 01-11-2025 13:43-0400 Body weight 146.51 kg Dalia Risaliti EMERGENCY MEDICINE PHYSICIAN ASSISTANT Work Phone: [facility] 01-11-2025 13:43-0400 Diastolic blood pressure 82 mm[Hg] Dalia Risaliti EMERGENCY MEDICINE PHYSICIAN ASSISTANT Work Phone: [facility] 01-11-2025 13:43-0400 Heart rate 65 /min Dalia Risaliti EMERGENCY MEDICINE PHYSICIAN ASSISTANT Work Phone: [facility] 01-11-2025 13:43-0400 SaO2% (BldA) [Mass fraction] 99 % Dalia Risaliti EMERGENCY MEDICINE PHYSICIAN ASSISTANT Work Phone: [facility] 01-11-2025 13:43-0400 Systolic blood pressure 138 mm[Hg] Dalia Risaliti EMERGENCY MEDICINE PHYSICIAN ASSISTANT Work Phone: [facility] 01-08-2025 11:41-0400 Diastolic blood pressure 68 mm[Hg] Melissa Coon MD Work Phone: [facility] 01-08-2025 11:41-0400 Systolic blood pressure 132 mm[Hg] Meilssa Coon MD Work Phone: [facility] 01-08-2025 11:40-0400 Body height 170.18 cm Melissa Coon MD Work Phone: [facility] 01-08-2025 11:40-0400 Body mass index (BMI) [Ratio] 47 kg/m2 Melissa Coon MD Work Phone: [facility] 01-08-2025 11:40-0400 Body weight 136.07 kg Melissa Coon MD Work Phone: [facility] 01-02-2025 11:29-0400 Body height 170.18 cm Melissa Coon MD Work Phone: [facility] 01-02-2025 11:29-0400 Body temperature 98 [degF] Melissa Coon MD Work Phone: [facility] 01-02-2025 11:29-0400 Body weight 136.07 kg Melissa Coon MD Work Phone: [facility] 01-02-2025 11:29-0400 Diastolic blood pressure 71 mm[Hg] Melissa Coon MD Work Phone: [facility] 01-02-2025 11:29-0400 Heart rate 89 /min Melissa Coon MD Work Phone: [facility] 01-02-2025 11:29-0400 Respiratory rate 18 /min Melissa Coon MD Work Phone: [facility] 01-02-2025 11:29-0400 SaO2% (BldA) [Mass fraction] 100 % Melissa Coon MD Work Phone: [facility] 01-02-2025 11:29-0400 Systolic blood pressure 144 mm[Hg] Melissa Coon MD Work Phone: [facility] 12-26-2024 09:16-0400 Body height 170.18 cm Melissa Coon MD Work Phone: [facility] 12-26-2024 09:16-0400 Body mass index (BMI) [Ratio] 49.4 kg/m2 Melissa Coon MD Work Phone: [facility] 12-26-2024 09:16-0400 Body temperature 97.8 [degF] Melissa Coon MD Work Phone: [facility] 12-26-2024 09:16-0400 Body weight 143.33 kg Melissa Coon MD Work Phone: [facility] 12-26-2024 09:16-0400 Diastolic blood pressure 82 mm[Hg] Melissa Coon MD Work Phone: [facility] 12-26-2024 09:16-0400 Heart rate 86 /min Melissa Coon MD Work Phone: [facility] 12-26-2024 09:16-0400 Respiratory rate 16 /min Melissa Coon MD Work Phone: [facility] 12-26-2024 09:16-0400 SaO2% (BldA) [Mass fraction] 96 % Melissa Coon MD Work Phone: [facility] 12-26-2024 09:16-0400 Systolic blood pressure 124 mm[Hg] Melissa Coon MD Work Phone: [facility] 12-20-2024 15:10-0400 Body height 170.2 cm Summer Workman PA Work Phone: [facility] 12-20-2024 15:10-0400 Body mass index (BMI) [Ratio] 50.68 kg/m2 Summer Workman PA Work Phone: [facility] 12-20-2024 15:10-0400 Body weight 146.78 kg Summer Workman PA Work Phone: [facility] 12-20-2024 15:10-0400 Diastolic blood pressure 80 mm[Hg] Summer Workman PA Work Phone: [facility] 12-20-2024 15:10-0400 Heart rate 79 /min Summer Workman PA Work Phone: [facility] 12-20-2024 15:10-0400 SaO2% (BldA) [Mass fraction] 97 % Summer Workman PA Work Phone: [facility] 12-20-2024 15:10-0400 Systolic blood pressure 118 mm[Hg] Summer Workman PA Work Phone: [facility] 12-13-2024 10:42-0400 Body height 170.2 cm Melissa Coon MD Work Phone: [facility] 12-13-2024 10:42-0400 Body mass index (BMI) [Ratio] 50.12 kg/m2 Melissa Coon MD Work Phone: [facility] 12-13-2024 10:42-0400 Body weight 145.15 kg Melissa Coon MD Work Phone: [facility] 12-13-2024 10:42-0400 Diastolic blood pressure 86 mm[Hg] Melissa Coon MD Work Phone: [facility] 12-13-2024 10:42-0400 Heart rate 79 /min Melissa Coon MD Work Phone: [facility] 12-13-2024 10:42-0400 SaO2% (BldA) [Mass fraction] 97 % Melissa Coon MD Work Phone: [facility] 12-13-2024 10:42-0400 Systolic blood pressure 124 mm[Hg] Melissa Coon MD Work Phone: [facility] 12-06-2024 15:46-0400 Body height 170.2 cm Omid Rodney EMERGENCY MEDICINE PHYSICIAN ASSISTANT Work Phone: [facility] 12-06-2024 15:46-0400 Body mass index (BMI) [Ratio] 50.12 kg/m2 Omid Rodney EMERGENCY MEDICINE PHYSICIAN ASSISTANT Work Phone: [facility] 12-06-2024 15:46-0400 Body weight 145.15 kg Omid Rodney EMERGENCY MEDICINE PHYSICIAN ASSISTANT Work Phone: [facility] 12-06-2024 15:46-0400 Diastolic blood pressure 80 mm[Hg] Omid Rodney EMERGENCY MEDICINE PHYSICIAN ASSISTANT Work Phone: [facility] 12-06-2024 15:46-0400 Heart rate 90 /min Omid Rodney EMERGENCY MEDICINE PHYSICIAN ASSISTANT Work Phone: [facility] 12-06-2024 15:46-0400 SaO2% (BldA) [Mass fraction] 97 % Omid Rodney EMERGENCY MEDICINE PHYSICIAN ASSISTANT Work Phone: [facility] 12-06-2024 15:46-0400 Systolic blood pressure 128 mm[Hg] Omid Rodney EMERGENCY MEDICINE PHYSICIAN ASSISTANT Work Phone: [facility] 11-29-2024 11:15-0400 Body height 170.18 cm Melissa Coon MD Work Phone: [facility] 11-29-2024 11:15-0400 Body mass index (BMI) [Ratio] 49.4 kg/m2 Melissa Coon MD Work Phone: [facility] 11-29-2024 11:15-0400 Body weight 143.33 kg Melissa Coon MD Work Phone: [facility] 11-29-2024 09:53-0400 Body height 170.18 cm Melissa Coon MD Work Phone: [facility] 11-29-2024 09:53-0400 Body mass index (BMI) [Ratio] 109 kg/m2 Melissa Coon MD Work Phone: [facility] 11-29-2024 09:53-0400 Body weight 316 kg Melissa Coon MD Work Phone: [facility] 11-29-2024 09:53-0400 Diastolic blood pressure 83 mm[Hg] Melissa Coon MD Work Phone: [facility] 11-29-2024 09:53-0400 Heart rate 79 /min Melissa Coon MD Work Phone: [facility] 11-29-2024 09:53-0400 SaO2% (BldA) [Mass fraction] 97 % Melissa Coon MD Work Phone: [facility] 11-29-2024 09:53-0400 Systolic blood pressure 143 mm[Hg] Melissa Coon MD Work Phone: [facility] 11-21-2024 10:37-0400 Body mass index (BMI) [Ratio] 48.4 kg/m2 Dalia Risaliti EMERGENCY MEDICINE PHYSICIAN ASSISTANT Work Phone: [facility] 11-21-2024 10:37-0400 Body weight 140.16 kg Dalia Risaliti EMERGENCY MEDICINE PHYSICIAN ASSISTANT Work Phone: [facility] 11-21-2024 10:37-0400 Diastolic blood pressure 80 mm[Hg] Dalia Risaliti EMERGENCY MEDICINE PHYSICIAN ASSISTANT Work Phone: [facility] 11-21-2024 10:37-0400 Heart rate 75 /min Dalia Risaliti EMERGENCY MEDICINE PHYSICIAN ASSISTANT Work Phone: [facility] 11-21-2024 10:37-0400 SaO2% (BldA) [Mass fraction] 97 % Dalia Risaliti EMERGENCY MEDICINE PHYSICIAN ASSISTANT Work Phone: [facility] 11-21-2024 10:37-0400 Systolic blood pressure 140 mm[Hg] Dalia Dennis EMERGENCY MEDICINE PHYSICIAN ASSISTANT Work Phone: [facility] 10-25-2024 08:07-0400 Diastolic blood pressure 82 mm[Hg] Melissa Coon MD Work Phone: [facility] 10-25-2024 08:07-0400 Heart rate 76 /min Melissa Coon MD Work Phone: [facility] 10-25-2024 08:07-0400 Systolic blood pressure 146 mm[Hg] Melissa Coon MD Work Phone: [facility] 10-09-2024 10:17-0400 Body height 170.2 cm Summer Workman PA Work Phone: [facility] 10-09-2024 10:17-0400 Body mass index (BMI) [Ratio] 48.87 kg/m2 Summer Workman PA Work Phone: [facility] 10-09-2024 10:17-0400 Body weight 141.52 kg Summer Workman PA Work Phone: [facility] 10-09-2024 10:17-0400 Diastolic blood pressure 80 mm[Hg] Summer Workman PA Work Phone: [facility] 10-09-2024 10:17-0400 Heart rate 82 /min Summer Workman PA Work Phone: [facility] 10-09-2024 10:17-0400 SaO2% (BldA) [Mass fraction] 97 % Summer Workman PA Work Phone: [facility] 10-09-2024 10:17-0400 Systolic blood pressure 134 mm[Hg] Summer Workman PA Work Phone: [facility] 05-14-2024 14:13-0500 Body height 170.18 cm Melissa Coon MD Work Phone: [facility] 05-14-2024 14:13-0500 Body mass index (BMI) [Ratio] 42.3 kg/m2 Melissa Coon MD Work Phone: [facility] 05-14-2024 14:13-0500 Body temperature 98.2 [degF] Melissa Coon MD Work Phone: [facility] 05-14-2024 14:13-0500 Body weight 122.46 kg Melissa Coon MD Work Phone: [facility] 05-14-2024 14:13-0500 Diastolic blood pressure 85 mm[Hg] Melissa Coon MD Work Phone: [facility] 05-14-2024 14:13-0500 Heart rate 74 /min Melissa Coon MD Work Phone: [facility] 05-14-2024 14:13-0500 Respiratory rate 18 /min Melissa Coon MD Work Phone: [facility] 05-14-2024 14:13-0500 SaO2% (BldA) [Mass fraction] 97 % Melissa Cono MD Work Phone: [facility] 05-14-2024 14:13-0500 Systolic blood pressure 141 mm[Hg] Melissa Coon MD Work Phone: [facility] 03-07-2024 11:08-0400 Body mass index (BMI) [Ratio] 41.97 kg/m2 [employer]/[facility] 03-07-2024 11:08-0400 Body weight 121.56 kg [employer] Program Assistant/[facility] 03-07-2024 11:08-0400 Diastolic blood pressure 88 mm[Hg] [employer] Assistant/[facility] 03-07-2024 11:08-0400 Heart rate 91 /min [employer] Assistant/[facility] 03-07-2024 11:08-0400 SaO2% (BldA) [Mass fraction] 98 % [employer]/[facility] 03-07-2024 11:08-0400 Systolic blood pressure 138 mm[Hg] [employer] Assistant/[facility] 02-28-2024 09:45-0400 Body height 170.2 cm Kenyetta Dove MD Work Phone: [facility] 02-28-2024 09:45-0400 Body mass index (BMI) [Ratio] 41.97 kg/m2 Kenyetta Dove MD Work Phone: [facility] 02-28-2024 09:45-0400 Body weight 121.56 kg Kenyetta Dove MD Work Phone: [facility] 02-28-2024 09:45-0400 Diastolic blood pressure 84 mm[Hg] Kenyetta Dove MD Work Phone: [facility] 02-28-2024 09:45-0400 Heart rate 78 /min Kenyetta Dove MD Work Phone: [facility] 02-28-2024 09:45-0400 Respiratory rate 18 /min Kenyetta Dove MD Work Phone: [facility] 02-28-2024 09:45-0400 Systolic blood pressure 126 mm[Hg] Kenyetta Dove MD Work Phone: [facility] 01-24-2024 15:28-0400 Body height 170.2 cm Melissa Coon MD Work Phone: [facility] 01-24-2024 15:28-0400 Body mass index (BMI) [Ratio] 43.54 kg/m2 Melissa Coon MD Work Phone: [facility] 01-24-2024 15:28-0400 Body weight 126.1 kg Melissa Coon MD Work Phone: [facility] 01-24-2024 15:28-0400 Diastolic blood pressure 82 mm[Hg] Melissa Coon MD Work Phone: [facility] 01-24-2024 15:28-0400 Heart rate 64 /min Melissa Coon MD Work Phone: [facility] 01-24-2024 15:28-0400 SaO2% (BldA) [Mass fraction] 95 % Melissa Coon MD Work Phone: [facility] 01-24-2024 15:28-0400 Systolic blood pressure 138 mm[Hg] Melissa Coon MD Work Phone: [facility] 12-05-2023 11:42-0400 Body height 170.18 cm DO Melissa Cromley II Work Phone: [facility] 12-05-2023 11:42-0400 Body mass index (BMI) [Ratio] 40.7 kg/m2 DO Melissa Cromley II Work Phone: [facility] 12-05-2023 11:42-0400 Body temperature 98.2 [degF] DO Melissa Cromley II Work Phone: [facility] 12-05-2023 11:42-0400 Body weight 117.93 kg DO Melissa Cromley II Work Phone: [facility] 12-05-2023 11:42-0400 Diastolic blood pressure 94 mm[Hg] DO Melissa Cromley II Work Phone: [facility] 12-05-2023 11:42-0400 Heart rate 78 /min DO Melissa Cromley II Work Phone: [facility] 12-05-2023 11:42-0400 SaO2% (BldA) [Mass fraction] 94 % DO Melissa Cromley II Work Phone: [facility] 12-05-2023 11:42-0400 Systolic blood pressure 138 mm[Hg] DO Melissa Cromley II Work Phone: [facility] 10-03-2023 11:47-0400 Body height 170.18 cm DO Melissa Cromley II Work Phone: [facility] 10-03-2023 11:47-0400 Body mass index (BMI) [Ratio] 45.2 kg/m2 DO Melissa Cromley II Work Phone: [facility] 10-03-2023 11:47-0400 Body weight 131 kg DO Melissa Cromley II Work Phone: [facility] 09-20-2023 11:34-0400 Body height 170.18 cm DO Melissa Cromley II Work Phone: [facility] 09-20-2023 11:34-0400 Body temperature 98.1 [degF] DO Melissa Cromley II Work Phone: [facility] 09-20-2023 11:34-0400 Body weight 131.9 kg DO Melissa Cromley II Work Phone: [facility] 09-20-2023 11:34-0400 Diastolic blood pressure 101 mm[Hg] DO Melissa Cromley II Work Phone: [facility] 09-20-2023 11:34-0400 Heart rate 86 /min DO Melissa Cromley II Work Phone: [facility] 09-20-2023 11:34-0400 Respiratory rate 19 /min DO Melissa Cromley II Work Phone: [facility] 09-20-2023 11:34-0400 SaO2% (BldA) [Mass fraction] 97 % DO Melissa Cromley II Work Phone: [facility] 09-20-2023 11:34-0400 Systolic blood pressure 167 mm[Hg] DO Melissa Cromley II Work Phone: [facility] 07-22-2023 10:32-0500 Body temperature 98.2 [degF] DO Melissa Cromley II Work Phone: [facility] 07-22-2023 10:32-0500 Diastolic blood pressure 78 mm[Hg] DO Melissa Cromley II Work Phone: [facility] 07-22-2023 10:32-0500 Heart rate 79 /min DO Melissa Cromley II Work Phone: [facility] 07-22-2023 10:32-0500 Respiratory rate 16 /min DO Melissa Cromley II Work Phone: [facility] 07-22-2023 10:32-0500 SaO2% (BldA) [Mass fraction] 96 % DO Melissa Singh II Work Phone: [facility] 07-22-2023 10:32-0500 Systolic blood pressure 132 mm[Hg] DO Melissa Singh II Work Phone: [facility] 07-22-2023 08:20-0500 Body height 170.18 cm DO Melissa Singh II Work Phone: [facility] 07-22-2023 08:20-0500 Body weight 124.2 kg DO Melissa Singh II Work Phone: [facility] 07-08-2023 14:25-0500 Body height 170.18 cm Roula James Other [employer] Other 07-08-2023 14:25-0500 Body mass index (BMI) [Ratio] 42.28 kg/m2 Roula James Other [employer] Other 07-08-2023 14:25-0500 Body temperature 99.6 [degF] Roula James Other [employer] Other 07-08-2023 14:25-0500 Body weight 122.47 kg Roula James Other [employer] Other 07-08-2023 14:25-0500 Diastolic blood pressure 85 mm[Hg] Roula James Other [employer] Other 07-08-2023 14:25-0500 SaO2% (BldA) [Mass fraction] 96 % Roula James Other [employer] Other 07-08-2023 14:25-0500 Systolic blood pressure 140 mm[Hg] Roula Ramirez Other [facility] [employer] Other 03-29-2023 10:13-0400 Diastolic blood pressure 98 mm[Hg] PHYSICIAN NO [facility] 03-29-2023 10:13-0400 Heart rate 70 /min PHYSICIAN NO [facility] 03-29-2023 10:13-0400 Respiratory rate 20 /min PHYSICIAN [facility] 03-29-2023 10:13-0400 SaO2% (BldA) [Mass fraction] 98 % PHYSICIAN NO [facility] 03-29-2023 10:13-0400 Systolic blood pressure 167 mm[Hg] PHYSICIAN NO [facility] 03-29-2023 08:29-0400 Body height 170.18 cm PHYSICIAN NO [facility] 03-29-2023 08:29-0400 Body weight 120.2 kg PHYSICIAN NO [facility] 03-27-2023 13:45-0400 Body height 170.18 cm Oscar Reed Other [facility] [employer] Other 03-27-2023 13:45-0400 Body mass index (BMI) [Ratio] 42.03 kg/m2 Oscar Reed Other [employer] [facility] [employer] Other 03-27-2023 13:45-0400 Body temperature 98.1 [degF] Oscar Reed Other [employer] [facility] [employer] Other 03-27-2023 13:45-0400 Body weight 121.75 kg Oscar Reed Other [employer] Other 03-27-2023 13:45-0400 Diastolic blood pressure 92 mm[Hg] Oscar Reed Other [employer] Other 03-27-2023 13:45-0400 Respiratory rate 18 /min Oscar Reed Other [employer] Other 03-27-2023 13:45-0400 SaO2% (BldA) [Mass fraction] 97 % Oscar Reed Other [employer] Other 03-27-2023 13:45-0400 Systolic blood pressure 156 mm[Hg] Oscar Reed Other [employer] Other 02-17-2023 13:15-0400 Body height 170.18 cm Beny Hoskins Other [employer] Other 02-17-2023 13:15-0400 Body mass index (BMI) [Ratio] 42.03 kg/m2 Beny Hoskins Other [employer] Other 02-17-2023 13:15-0400 Body weight 121.75 kg Beny Hoskins Other [employer] Other 02-17-2023 13:15-0400 Diastolic blood pressure 79 mm[Hg] Beny Hoskins Other [employer] Other 02-17-2023 13:15-0400 Systolic blood pressure 139 mm[Hg] Beny Hoskins Other [employer] Other 01-24-2023 10:47-0400 Diastolic blood pressure 84 mm[Hg] DO Donya Billings Work Phone: [facility] 01-24-2023 10:47-0400 Heart rate 94 /min DO Donya Billings Work Phone: [facility] 01-24-2023 10:47-0400 Respiratory rate 20 /min DO Donya Billings Work Phone: [facility] 01-24-2023 10:47-0400 SaO2% (BldA) [Mass fraction] 98 % DO Donya Billings Work Phone: [facility] 01-24-2023 10:47-0400 Systolic blood pressure 181 mm[Hg] DO Donya Billings Work Phone: [facility] 01-24-2023 09:58-0400 Body height 170.18 cm DO Donya Billings Work Phone: [facility] 01-24-2023 09:58-0400 Body temperature 98 [degF] DO Donya Billings Work Phone: [facility] 01-24-2023 09:58-0400 Body weight 122.75 kg DO Donya Billings Work Phone: [facility] 12-30-2022 23:30-0400 Diastolic blood pressure 84 mm[Hg] DO Donya Billings Work Phone: [facility] 12-30-2022 23:30-0400 Heart rate 81 /min DO Donya Billings Work Phone: [facility] 12-30-2022 23:30-0400 Respiratory rate 20 /min DO Donya Billings Work Phone: [facility] 12-30-2022 23:30-0400 SaO2% (BldA) [Mass fraction] 98 % DO Donya Billings Work Phone: [facility] 12-30-2022 23:30-0400 Systolic blood pressure 176 mm[Hg] DO Donya Billings Work Phone: [facility] 12-30-2022 17:21-0400 Body height 170.18 cm DO Donya Billings Work Phone: [facility] 12-30-2022 17:21-0400 Body temperature 97.6 [degF] DO Donya Billings Work Phone: [facility] 12-30-2022 17:21-0400 Body weight 122.1 kg DO Donya Billings Work Phone: [facility] 12-20-2022 16:32-0400 Diastolic blood pressure 87 mm[Hg] DO Donya Billings Work Phone: [facility] 12-20-2022 16:32-0400 Heart rate 80 /min DO Donya Billings Work Phone: [facility] 12-20-2022 16:32-0400 Respiratory rate 18 /min DO Donya Billings Work Phone: [facility] 12-20-2022 16:32-0400 SaO2% (BldA) [Mass fraction] 98 % DO Donya Billings Work Phone: [facility] 12-20-2022 16:32-0400 Systolic blood pressure 137 mm[Hg] DO Donya Billings Work Phone: [facility] 12-20-2022 12:47-0400 Body height 170.18 cm DO Donya Billings Work Phone: [facility] 12-20-2022 12:47-0400 Body temperature 98.7 [degF] DO Donya Billings Work Phone: [facility] 12-20-2022 12:47-0400 Body weight 121.5 kg DO Donya Billings Work Phone: [facility] 12-08-2022 08:50-0400 Body height 170.18 cm Donya Billings Work Phone: [facility] [address] DO Work Phone: 12-08-2022 08:50-0400 Body mass index (BMI) [Ratio] 42.29 kg/m2 Donya Billings Work Phone: [facility] [address] DO Work Phone: 12-08-2022 08:50-0400 Body surface area Derived from formula 2.3 m2 Donya Billings Work Phone: [facility] [address] DO Work Phone: 12-08-2022 08:50-0400 Body weight 122.47 kg Donya Billings Work Phone: [facility] [address] DO Work Phone: 12-08-2022 08:50-0400 Diastolic blood pressure 80 mm[Hg] Donya Billings Work Phone: [facility] [address] DO Work Phone: 12-08-2022 08:50-0400 Heart rate 80 /min Donya Billings Work Phone: [facility] [address] DO Work Phone: 12-08-2022 08:50-0400 Systolic blood pressure 128 mm[Hg] Donya Billings Work Phone: [facility] [address] DO Work Phone: 11-06-2022 00:59-0400 Diastolic blood pressure 68 mm[Hg] DO Donya Billings Work Phone: [facility] 11-06-2022 00:59-0400 Heart rate 86 /min DO Donya Billings Work Phone: [facility] 11-06-2022 00:59-0400 Respiratory rate 19 /min DO Donya Billings Work Phone: [facility] 11-06-2022 00:59-0400 SaO2% (BldA) [Mass fraction] 99 % DO Donya Billings Work Phone: [facility] 11-06-2022 00:59-0400 Systolic blood pressure 139 mm[Hg] DO Donya Billings Work Phone: [facility] 11-05-2022 20:12-0400 Body height 170.18 cm DO Donya Billings Work Phone: [facility] 11-05-2022 20:12-0400 Body temperature 97.9 [degF] DO Donya Billings Work Phone: [facility] 11-05-2022 20:12-0400 Body weight 122.95 kg DO Donya Billings Work Phone: [facility] 10-13-2022 10:03-0400 Body height 170.18 cm Donya Billings Work Phone: [facility] [address] [place] Work Phone: 10-13-2022 10:03-0400 Body mass index (BMI) [Ratio] 41.98 kg/m2 Donya Billings Work Phone: [facility] [address] [place] Work Phone: 10-13-2022 10:03-0400 Body surface area Derived from formula 2.29 m2 Donya Billings Work Phone: [facility] [address] [place] Work Phone: 10-13-2022 10:03-0400 Body weight 121.56 kg Donya Billings Work Phone: [facility] [address] [place] Work Phone: 10-13-2022 10:03-0400 Diastolic blood pressure 68 mm[Hg] Donya Billings Work Phone: [facility] [address] [place] Work Phone: 10-13-2022 10:03-0400 Heart rate 68 /min Donya Billings Work Phone: [facility] [address] [place] Work Phone: 10-13-2022 10:03-0400 Systolic blood pressure 122 mm[Hg] Donya Billings Work Phone: [facility] [address] [place] Work Phone: 09-01-2022 14:30-0400 Body height 170.18 cm Oliver Mario Other [employer] Other 09-01-2022 14:30-0400 Body mass index (BMI) [Ratio] 41.97 kg/m2 Oliver Mario Other [employer] Other 09-01-2022 14:30-0400 Body weight 121.56 kg Oliver Mario Other [employer] Other 09-01-2022 14:30-0400 Diastolic blood pressure 96 mm[Hg] Oliver Mario Other [employer] Other 09-01-2022 14:30-0400 Systolic blood pressure 159 mm[Hg] Oliver Mario Other [employer] Other 07-28-2022 13:20-0500 Body height 170.18 cm Donya Billings Work Phone: [facility] [employer] DO Work Phone: 07-28-2022 13:20-0500 Body mass index (BMI) [Ratio] 42.13 kg/m2 Donya Billings Work Phone: [facility] [address] DO Work Phone: 07-28-2022 13:20-0500 Body surface area Derived from formula 2.29 m2 Donya Billings Work Phone: [facility] [employer] [facility] [address] [place] Work Phone: 07-28-2022 13:20-0500 Body weight 122.02 kg Donya Billings Work Phone: [facility] [employer] [facility] [address] [place] Work Phone: 07-28-2022 13:20-0500 Diastolic blood pressure 68 mm[Hg] Donya Billings [facility] [place] Work Phone: 07-28-2022 13:20-0500 Heart rate 78 /min Donya Billings Work Phone: [facility] [address] DO Work Phone: 07-28-2022 13:20-0500 Systolic blood pressure 142 mm[Hg] Donya [place] Work Phone: [facility] 250 DO Work Phone: 06-21-2022 13:10-0500 Diastolic blood pressure 79 mm[Hg] DO Donya Billings Work Phone: [facility] 06-21-2022 13:10-0500 Heart rate 75 /min DO Donya Billings Work Phone: [facility] 06-21-2022 13:10-0500 Respiratory rate 18 /min DO Donya Billings Work Phone: [facility] 06-21-2022 13:10-0500 SaO2% (BldA) [Mass fraction] 98 % DO Donya Billings Work Phone: [facility] 06-21-2022 13:10-0500 Systolic blood pressure 164 mm[Hg] DO Donya Billings Work Phone: [facility] 06-21-2022 10:26-0500 Body temperature 98.7 [degF] DO Donya Billings Work Phone: [facility] 05-12-2022 16:00-0500 Body height 170.18 cm Oliver Mario Other [facility] [employer] Other 05-12-2022 16:00-0500 Body mass index (BMI) [Ratio] 41.81 kg/m2 Oliver Mario Other [facility] [employer] Other 05-12-2022 16:00-0500 Body weight 121.11 kg Oliver Mario Other [employer] Other 05-12-2022 16:00-0500 Diastolic blood pressure 89 mm[Hg] Oliver Mario Other [employer] Other 05-12-2022 16:00-0500 Systolic blood pressure 139 mm[Hg] Oliver Mario Other [employer] Other 04-28-2022 16:00-0500 Body height 170.18 cm Oscar Reed Other [employer] Other 04-28-2022 16:00-0500 Body mass index (BMI) [Ratio] 39.93 kg/m2 Oscar Reed Other [employer] Other 04-28-2022 16:00-0500 Body temperature 97.9 [degF] Oscar Reed Other [employer] Other 04-28-2022 16:00-0500 Body weight 115.67 kg Oscar Reed Other [employer] Other 04-28-2022 16:00-0500 Diastolic blood pressure 88 mm[Hg] Oscar Reed Other [employer] Other 04-28-2022 16:00-0500 Respiratory rate 18 /min Oscar Reed Other [employer] Other 04-28-2022 16:00-0500 SaO2% (BldA) [Mass fraction] 97 % Oscar Reed Other [employer] Other 04-28-2022 16:00-0500 Systolic blood pressure 139 mm[Hg] Oscar Reed Other [facility] [employer] Other Encounters Encounter Date Encounter Type Care Provider Facility Start: 01-11-2025 End: 01-11-2025 Office outpatient visit 15 minutes Dalia Dennis NP Work Phone: [facility] Comment on above: Acute pain of left k nee (Primary Dx) Start: 01-11-2025 End: 01-11-2025 ambulatory MELISSA COON Not Available Start: 01-08-2025 End: 01-08-2025 ambulatory Melissa Coon MD Work Phone: [facility] Work Phone: Start: 01-08-2025 End: 01-08-2025 Patient encounter procedure Melissa Pimentel MD -[facility] Orthopedics Work Phone: Start: 01-02-2025 End: 01-02-2025 Emergency department patient visit Melissa Coon MD Work Phone: -Emergency Room Work Phone: Start: 12-31-2024 End: 12-31-2024 ambulatory Willian Jensen MD Facility:[facility] Start: 12-26-2024 End: 12-26-2024 ambulatory Melissa Coon MD Work Phone: [facility] Work Phone: Start: 12-26-2024 End: 12-26-2024 Patient encounter procedure Yogi Redding MD -[facility] Vascular Surg Work Phone: Start: 12-25-2024 Non-patient / Non-visit Robbie vargas MD -[facility] Sleep Lab Work Phone: Start: 12-20-2024 End: 12-20-2024 ambulatory MELISSA COON Not Available Start: 12-20-2024 End: 12-20-2024 Office outpatient visit 25 minutes Tanner Menendez PA Work Phone: [facility] IM Comment on above: Bilateral lower extr emity edema (Primary Dx); Hepatomegaly Start: 12-19-2024 End: 12-19-2024 ambulatory TANNER MENENDEZ Not Available Start: 12-18-2024 End: 12-18-2024 Patient encounter procedure Robbie Dale MD -Sleep Lab Work Phone: Start: 12-18-2024 End: 12-18-2024 ambulatory Melissa Coon MD Work Phone: [facility] Work Phone: Start: 12-17-2024 End: 12-17-2024 ambulatory Willian Jensen MD Facility:[facility] Start: 12-13-2024 End: 12-13-2024 Office outpatient visit 25 minutes Melissa Coon MD Work Phone: [facility] Comment on above: Bilateral lower extr emity edema (Primary Dx); Pulmonary hypertension (HCC); Dyspnea, unspecified type; Essential hypertension ; Medicare annual wellness visit, subsequent; ACP (advance care planning); Obstructive sleep apnea syndrome; Pain of upper abdomen Start: 12-13-2024 End: 12-13-2024 Patient encounter procedure Melissa Coon MD Work Phone: [facility] Start: 12-13-2024 End: 12-13-2024 ambulatory MELISSA COON Not Available Start: 12-07-2024 End: 12-08-2024 External Result Encounter Omid Quan EMERGENCY MEDICINE PHYSICIAN ASSISTANT Work Phone: [facility] External Department Unsolicited Start: 12-07-2024 End: 12-08-2024 External Result Encounter Omid Quan EMERGENCY MEDICINE PHYSICIAN ASSISTANT Work Phone: [facility] External Department Unsolicited Start: 12-07-2024 End: 12-07-2024 Patient encounter procedure OMID QUAN RN MSN -XRay [facility] Work Phone: Start: 12-07-2024 End: 12-07-2024 ambulatory Melissa Coon MD Work Phone: [facility] Work Phone: Start: 12-06-2024 End: 12-06-2024 Office outpatient visit 25 minutes Omid Quan EMERGENCY MEDICINE PHYSICIAN ASSISTANT Work Phone: [facility] Comment on above: Bilateral lower extr emity edema (Primary Dx); Pulmonary hypertension (HCC); Dyspnea, unspecified type; Snoring; Anasarca; Essential hypertension ; History of anemia; Hypoalbuminemia; Hypoproteinemia (HCC) Start: 12-06-2024 End: 12-06-2024 ambulatory MELISSA COON Not Available Start: 11-29-2024 End: 11-29-2024 ambulatory Santos Johnston Facility[facility] Start: 11-29-2024 End: 11-29-2024 ambulatory Melissa Coon MD Work Phone: [facility] Work Phone: Start: 11-29-2024 End: 11-29-2024 Patient encounter procedure Robbie Dale MD -[facility] Sleep Lab Work Phone: Start: 11-27-2024 End: 11-27-2024 Patient encounter procedure Kenyetta Dove MD -[facility] [place] Work Phone: Start: 11-27-2024 End: 11-27-2024 ambulatory Melissa Coon MD Work Phone: [facility] Work Phone: Start: 11-26-2024 End: 11-26-2024 ambulatory Donya OZUNA Facility:[facility] Start: 11-21-2024 End: 11-21-2024 Patient encounter procedure Dalia Dennis EMERGENCY MEDICINE PHYSICIAN ASSISTANT -[facility] [place] Work Phone: Start: 11-21-2024 End: 11-21-2024 ambulatory Melissa Coon MD Work Phone: [facility] Work Phone: Start: 11-21-2024 End: 11-21-2024 ambulatory DALIA DENNIS Not Available Start: 11-21-2024 End: 11-21-2024 Office outpatient visit 25 minutes Dalia Dennis EMERGENCY MEDICINE PHYSICIAN ASSISTANT Work Phone: [facility] Comment on above: Bilateral lower extr emity edema (Primary Dx); Essential hypertension ; Pulmonary hypertension (HCC); Cellulitis of right lower extremity; Snoring Start: 11-09-2024 End: 11-09-2024 Patient encounter procedure Tanner Pimentel MARITZA-Kaiden -Electrodiagnostics Work Phone: Start: 11-09-2024 End: 11-09-2024 ambulatory Tanner Menendez Facility:[facility] Start: 10-25-2024 End: 10-25-2024 Discharged Recurring Melissa Coon MD Work Phone: [facility]-Infusion Therapy - O/P Work Phone: Start: 10-25-2024 End: 10-25-2024 ambulatory Melissa Coon MD Work Phone: [facility] Work Phone: Start: 10-16-2024 End: 10-16-2024 Orders Only Amanda Montiel MD Work Phone: [facility] Comment on above: Acute vaginitis (Dee Dee abhilash Dx) Start: 10-09-2024 End: 10-09-2024 Patient encounter procedure Melissa Coon MD Work Phone: [facility] [place] Work Phone: Start: 10-09-2024 End: 10-09-2024 Office outpatient visit 25 minutes Tanner Menendez MARITZA Work Phone: [facility] Comment on above: Lower extremity milo a (Primary Dx); SOB (shortness of breath) on exertion; Bilateral leg edema; Rosacea Start: 10-09-2024 End: 10-09-2024 ambulatory Melissa Coon MD Work Phone: [facility] Work Phone: Start: 09-03-2024 End: 09-03-2024 ambulatory Melissa Coon MD Work Phone: [facility] Work Phone: Start: 09-03-2024 End: 09-03-2024 Discharged Recurring Chaz Carrillo DO -Physical Therapy [address] [place] Start: 09-03-2024 Registered Recurring Melissa dunne MD Work Phone: [facility]-Physical Therapy [place] Start: 08-29-2024 End: 08-29-2024 Patient encounter procedure Melissa Coon MD Work Phone: [facility] [place] Work Phone: Start: 08-29-2024 End: 08-29-2024 ambulatory Melissa Coon MD Work Phone: [facility] Work Phone: Start: 08-14-2024 End: 08-14-2024 ambulatory KENYETTA DOVE Not Available Start: 08-09-2024 ambulatory Willian Jensen MD Facility:[facility] Start: 08-06-2024 Registered Recurring Melissa dunne MD Work Phone: [facility]-Physical Therapy [facility] [place] Start: 08-03-2024 End: 08-03-2024 Patient encounter procedure Melissa Coon MD Work Phone: [facility] [place] Work Phone: Start: 08-03-2024 End: 08-03-2024 ambulatory Melissa Coon MD Work Phone: [facility] Work Phone: Start: 08-01-2024 End: 08-01-2024 ambulatory MELISSA COON Not Available Start: 07-23-2024 End: 07-23-2024 ambulatory Willian Jensen MD Facility:[facility] Start: 07-19-2024 End: 07-19-2024 ambulatory Melissa Coon MD Work Phone: [facility] Work Phone: Start: 07-19-2024 End: 07-19-2024 Patient encounter procedure Melissa Coon MD Work Phone: [facility] Orth[facility] Work Phone: Start: 07-14-2024 Non-patient / Non-visit Melissa Coon MD Work Phone: [facility] Work Phone: Start: 06-18-2024 End: 06-18-2024 Patient encounter procedure Melissa Coon MD Work Phone: [facility]-MRI [address] Closed Work Phone: Start: 06-18-2024 End: 06-18-2024 ambulatory Melissa Coon MD Work Phone: [facility] Work Phone: Start: 06-11-2024 End: 06-11-2024 ambulatory Willian Jensen MD Facility:[facility] Start: 05-22-2024 End: 05-22-2024 ambulatory Eldon Yates Facility[place] Start: 05-14-2024 End: 05-14-2024 Patient encounter procedure Melissa Coon MD Work Phone: [facility] [place] Work Phone: Start: 05-07-2024 End: 05-07-2024 Telephone encounter Kenyetta Dove MD Work Phone: [facility] ENDOCRINOLOGY Comment on above: Med Refill Start: 03-26-2024 End: 03-26-2024 ambulatory Willian Jensen MD Facility:[facility] Start: 03-07-2024 End: 03-07-2024 Patient encounter procedure [facility] Im Nurse Educational Program Assistant/Pa [facility] Comment on above: Bursitis of other bu rsa of right hip Start: 03-07-2024 End: 03-07-2024 Orders Only Betty Lawrence EMERGENCY MEDICINE PHYSICIAN ASSISTANT Work Phone: [facility] IM Comment on above: Bursitis of other bu rsa of right hip (Primary Dx) Start: 02-28-2024 End: 02-28-2024 Bamboo flowsheet Kenyetta Dove MD Work Phone: [facility] ENDOCRINOLOG[facility] Start: 02-28-2024 End: 02-28-2024 Bamboo flowsheet Kenyetta Dove MD Work Phone: [facility] Start: 02-28-2024 End: 02-28-2024 Office outpatient visit 25 minutes Kenyetta Dove MD Work Phone: [facility] Comment on above: Postoperative hypoth yroidism (CMS/HCC) (Primary Dx); Encounter for dietary consultation; Vitamin D deficiency; Class 3 severe obesity without serious comorbidity with body mass index (BMI) of 40.0 to 44.9 in adult, unspecified obesity type (CMS/HCC) Start: 02-28-2024 End: 02-28-2024 ambulatory KENYETTA DOVE Not Available Start: 02-21-2024 End: 02-21-2024 Patient encounter procedure DO Melissa Cromley II Work Phone: [facility] [place] Work Phone: Start: 02-21-2024 End: 02-21-2024 ambulatory DO Melissa J Cromley II Work Phone: [facility] Work Phone: Start: 02-13-2024 End: 02-13-2024 ambulatory Willian Jensen MD Facility:[facility] Start: 02-01-2024 End: 02-01-2024 External Result Encounter Dalia Dennis EMERGENCY MEDICINE PHYSICIAN ASSISTANT Work Phone: [facility] External Department Unsolicited Start: 02-01-2024 End: 02-01-2024 External Result Encounter Dalia Dennis EMERGENCY MEDICINE PHYSICIAN ASSISTANT Work Phone: [facility] External Department Unsolicited Start: 02-01-2024 End: 02-01-2024 Patient encounter procedure DO Melissa Cromley II Work Phone: [facility] [place] Work Phone: Start: 02-01-2024 End: 02-01-2024 ambulatory DO Melissa J Cromley II Work Phone: [facility] Work Phone: Start: 01-24-2024 End: 01-24-2024 Office outpatient visit 25 minutes Melissa Coon MD Work Phone: [facility] Comment on above: Essential hypertensi on (CMS/HCC) [...] 01-23-2024 End: 01-23-2024 ambulatory Willian Jensen MD Facility:[facility] Start: 01-20-2024 End: 01-20-2024 Patient encounter procedure DO Melissa Singh II Work Phone: [facility] Work Phone: Start: 01-20-2024 End: 01-20-2024 ambulatory DO Melissa Arias Croshayy II Work Phone: [facility] Work Phone: Start: 12-05-2023 End: 12-05-2023 ambulatory DO Melissa J Cromley II Work Phone: [facility] Work Phone: Start: 12-05-2023 End: 12-05-2023 Patient encounter procedure DO Melissa Stephanieey II Work Phone: [facility] [place] Work Phone: Start: 10-03-2023 End: 10-03-2023 ambulatory DO Melissa J Anastasiamley II Work Phone: [facility] Work Phone: Start: 10-03-2023 End: 10-03-2023 Patient encounter procedure DO Melissa Oconnormley II Work Phone: [facility] Work Phone: Start: 09-20-2023 End: 09-20-2023 Emergency department patient visit DO Melissa Singh II Work Phone: [facility]-Emergency Room Work Phone: Start: 08-16-2023 End: 08-16-2023 ambulatory DO Melissa Browney II Work Phone: [facility] Work Phone: Start: 08-16-2023 End: 08-16-2023 Patient encounter procedure DO Melissa Browney II Work Phone: [facility] [place] Work Phone: Start: 07-28-2023 End: 07-28-2023 Patient encounter procedure DO Melissa Browney II Work Phone: [facility] [place] Work Phone: Start: 07-22-2023 End: 07-22-2023 Emergency department patient visit DO Melissa Browney II Work Phone: [facility]-Emergency Room Work Phone: Start: 07-08-2023 End: 07-08-2023 ambulatory Roula Ramirez Other [employer] Other Start: 07-08-2023 Office outpatient vi sit 15 minutes Roula James [facility] [address] Start: 07-08-2023 Telephone encounter Stephie Brambila MD Work Phone: Rheumatology Start: 06-14-2023 End: 06-14-2023 ambulatory Beny Hoskins Other [employer] Other Start: 06-14-2023 Telephone encounter Beny Marques ck [facility] Start: 05-24-2023 End: 05-24-2023 ambulatory [facility] Facility:[facility] Start: 05-19-2023 End: 05-19-2023 ambulatory [facility] Facility:[facility] Start: 05-17-2023 End: 05-18-2023 ambulatory [facility] Facility:[facility] Start: 03-29-2023 End: 03-29-2023 Admission to same day surgery center PHYSICIAN NO [facility] C[facility]-Digestive Health Work Phone: Start: 03-29-2023 End: 03-29-2023 ambulatory PHYSICIAN NO [facility] Work Phone: Start: 03-27-2023 End: 03-27-2023 ambulatory Oscar Reed Other [employer] Other Start: 03-27-2023 Office outpatient vi sit 15 minutes Oscar Reed [facility] Start: 03-17-2023 End: 03-17-2023 ambulatory PHYSICIAN NO [facility] Work Phone: Start: 03-17-2023 End: 03-17-2023 Patient encounter procedure PHYSICIAN NO [facility] [place] Work Phone: Start: 02-17-2023 End: 02-17-2023 Patient encounter procedure PHYSICIAN NO [facility] [place] Work Phone: Start: 02-17-2023 End: 02-17-2023 ambulatory PHYSICIAN NO [facility] Work Phone: Start: 02-17-2023 Office outpatient vi sit 25 minutes Beny Hoskins [facility] Start: 01-24-2023 Chart Update Donya madera Work Phone: [facility] [place] [facility] [address] DO Work Phone: Start: 01-24-2023 End: 01-24-2023 Emergency department patient visit DO Donya Billings Work Phone: [facility]-Emergency Room Work Phone: Start: 01-21-2023 End: 01-21-2023 ambulatory DO Donya Billings Work Phone: [facility] Work Phone: Start: 01-21-2023 End: 01-21-2023 Patient encounter procedure DO Donya Billings Work Phone: [facility]-Lab [address] Work Phone: Start: 12-30-2022 End: 12-30-2022 Emergency department patient visit DO Dnoya Billings Work Phone: [facility]-Emergency Room Work Phone: Start: 12-29-2022 End: 12-29-2022 ambulatory DO Donya Billings Work Phone: [facility] Work Phone: Start: 12-29-2022 End: 12-29-2022 Patient encounter procedure DO Donya Awa Work Phone: [facility] Work Phone: Start: 12-20-2022 End: 12-20-2022 Emergency department patient visit DO Donya Billings Work Phone: [facility]-Emergency Room Work Phone: Start: 12-08-[address] Phillip Benjamin Facility: Start: 12-08-2022 [facility], Provider: Phillip Benjamin, Status: Pen, Time: 8:40 AM Donya Billings Work Phone: [facility] 250 DO Work Phone: Start: 12-08-2022 Office outpatient vi sit 25 minutes Donya Billings Work Phone: [facility] 250 DO Work Phone: Start: 12-06-2022 Chart Update Donya madera Work Phone: [facility] 250 DO Work Phone: Start: 11-25-[address] Donya Harvey Awa Facility:[id number] Start: 11-05-2022 End: 11-06-2022 Emergency department patient visit DO Donya Billings Work Phone: [facility]-Emergency Room Work Phone: Start: 10-31-2022 Chart Update Donya madera Work Phone: [facility] [address] [place] Work Phone: Start: 10-28-[address] Donya Harvey Awa Facility:[id number] Start: 10-13-2022 Office outpatient vi sit 25 minutes Donya Billings Work Phone: [facility] Work Phone: Start: 10-13-[address] Donya [place] Facility:[id number] Start: 10-07-2022 End: 10-08-[address] DONYA BILLINGS Facility:[facility] Start: 10-01-2022 End: 10-02-2022 ambulatory UNKNOWN PROVIDER Facility:[facility] Start: 10-01-2022 End: 10-01-2022 Subsequent hospital visit by physician Shannan [facility] Radiology Comment on above: Thoracic spine pain Start: 09-30-2022 Orders Only Javad velez MD Work Phone: [facility] Orthopedic Spine Start: 09-17-2022 End: 09-17-2022 Orders Only Javad Leach MD Work Phone: [facility] Orthopedic Spine Start: 09-17-2022 End: 09-17-2022 Patient encounter procedure DO Donya Billings Work Phone: [facility]-[address] Work Phone: Start: 09-02-2022 End: 09-06-2022 ambulatory UNKNOWN PROVIDER Facility:[facility] Start: 09-02-2022 End: 09-06-2022 Office outpatient new 45 minutes Javad Leach MD Work Phone: [facility] Orthopedic Spine Comment on above: Thoracic spine pain (Primary Dx) Start: 09-01-2022 End: 09-01-2022 ambulatory Oliver Mario Other [facility] [employer] Other Start: 09-01-2022 Patient encounter procedure Oliver Mario [facility] Gastroenterology Start: 08-24-2022 Orders Only Javad velez MD Work Phone: [facility] Neurosurgery Start: 08-10-2022 End: 08-10-2022 ambulatory DO Donya Billings Work Phone: [facility] Work Phone: Start: 08-10-2022 End: 08-10-2022 Patient encounter procedure DO Donya Billings Work Phone: [facility] [place] Work Phone: Start: 07-28-2022 [facility]UV, Provider: Phillip Benjamin, Status: Pen, Time: 1:10 PM Donya Billings Work Phone: [facility] [facility] DO Work Phone: Start: 07-28-2022 Office outpatient vi sit 25 minutes Donya Billings Work Phone: [facility] 250 DO Work Phone: Start: 07-28-[address] Phillip Benjamin Facility: Start: 07-26-2022 Chart Update Donya madera Work Phone: [facility] [facility] DO Work Phone: Start: 07-16-[address] Donya [place] Facility:[id number] Start: 07-15-2022 End: 07-16-[address] ZHANE MANTILLA . Facility:[facility] Start: 07-13-2022 End: 07-13-2022 ambulatory Oliver Mario Other [place] [employer] Other Start: 07-13-2022 Telephone encounter Oliver Mario [facility] Start: 06-21-2022 End: 06-21-2022 Emergency department patient visit DO Donya Billings Work Phone: [facility]-Emergency Room Work Phone: Start: 06-15-2022 End: 06-15-2022 ambulatory DO Donya Billings Work Phone: [facility] Work Phone: Start: 06-15-2022 End: 06-15-2022 Patient encounter procedure DO Donya Billings Work Phone: [facility]-Electrodiagnostics Work Phone: Start: 06-04-[address] Phillip Benjamin Facility: Start: 05-12-2022 End: 05-12-2022 ambulatory Oliver Mario Other [place] [employer] Other Start: 05-12-2022 Patient encounter procedure Oliver Mario [facility] Start: 05-04-2022 End: 05-04-2022 ambulatory DO Donya Billings Work Phone: [facility] Work Phone: Start: 05-04-2022 End: 05-04-2022 Patient encounter procedure DO Donya Billings Work Phone: [facility] [address] Start: 04-28-2022 End: 04-28-2022 ambulatory Oscar Reed Other [facility] [employer] Other Start: 04-28-2022 Office outpatient vi sit 15 minutes Oscar Reed [facility] [address] Start: 04-15-2022 End: 04-16-[address] ZHANE [...] 04-04-1998 Patient encounter procedure Conversion Yamel Benson [facility] Start: 04-04-1998 Results Only Conversion Edwigebrent herzog [facility] Procedures Date Procedure Procedure Detail Performing Clinician Start: 01-08-2025 Plain radiography of pelvis Melissa Coon MD Work Phone: Start: 01-08-2025 X-ray of left knee, four views Melissa dunne MD Work Phone: Start: 01-02-2025 Plain X-ray of right shoulder Melissa rodriguez MD Work Phone: Start: 01-02-2025 X-ray of left knee, four views Melissa dunne MD Work Phone: Start: 12-07-2024 Plain chest X-ray Melissa Coon MD Work Phone: Start: 12-07-2024 C-reactive protein high sensitivity Omid Quan EMERGENCY MEDICINE PHYSICIAN ASSISTANT Work Phone: Start: 12-07-2024 Comprehensive metabolic panel Omid Quan EMERGENCY MEDICINE PHYSICIAN ASSISTANT Work Phone: Start: 12-07-2024 Urine albumin quantitative Omid chiu EMERGENCY MEDICINE PHYSICIAN ASSISTANT Work Phone: Start: 11-29-2024 X-ray of lumbar spine, two or three views Melissa Coon MD Work Phone: Start: 10-25-2024 Adrenocorticotropic hormone measurement Melissa Coon MD Work Phone: Comment on above: ACTH reference interval for samples helene ected between 7 and10 AM.Performed at: [address] [id number] Director: Ramirez Ca PhD, Phone: [phone] Start: 06-18-2024 XR pre/post mri xray Melissa Coon MD Work Phone: Start: 06-18-2024 MR lumbar spine wo con Melissa Coon MD Work Phone: Start: 05-14-2024 Quick Strep (POC) Melissa Coon MD Work Phone: Start: 02-01-2024 Complete blood count with white cell differential, automated Dalia Dennis EMERGENCY MEDICINE PHYSICIAN ASSISTANT Work Phone: Start: 02-01-2024 Urine albumin quantitative Dalia Reynolds ti EMERGENCY MEDICINE PHYSICIAN ASSISTANT Work Phone: Start: 02-01-2024 Urnls dip stick/tablet rgnt non-auto w/o micrscp Dalia Reynoldsti EMERGENCY MEDICINE PHYSICIAN ASSISTANT Work Phone: Start: 01-20-2024 End: 01-20-2024 Screening mammography of bilateral breasts DO Melissa Singh II Work Phone: Start: 12-05-2023 COVID Antigen (POC) DO Melissa Singh II Work Phone: Start: 09-20-2023 Plain X-ray of right shoulder DO Melissa Singh II Work Phone: Start: 08-16-2023 MR thoracic spine wo con DO Melissa Oconnorml rubin II Work Phone: Start: 07-22-2023 Blood culture for bacteria, including anaerobic screen DO Melissa Oconnormley II Work Phone: Start: 07-22-2023 SARS-CoV-2, Influenza [...] MD Work Phone: Start: 04-04-1998 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 Conversion Yamel Ap Start: 04-04-1998 Microscopic observation [Identifier] in Cervix by Cyto stain Tanner SALAS Work Phone: section Donya S Georgina mckenzie Work Phone: H/O: section Previous c esarean section DO Melissa [employer] II Work Phone: H/O: hysterectomy H/O: hysterectomy DO Ro aurora Cromley II Work Phone: History Of Prior Surgery Gre chantel Andriy Awa Work Phone: History of thyroidectomy S/P thyroidectom y DO Melissa [employer] II Work Phone: Hysterectomy Donya S Awa Work Phone: Procedure on back Donya Billings Work Phone: Thyroidectomy Donya Andriy madera Work Phone: Total colonoscopy Donya Andriy Billings Work Phone: Plan of Treatment Date Care Activity Detail Author Start: 08-11-2027 Cholesterol [Mass/volume] in Serum or Plasma Cholesterol [facility] Start: 2027 Shingles (RZV) Vaccine (1 of 2) Shingles (RZV) Vaccine (1 of 2) [facility] Start: 05-19-2026 Diabetes Screening Diabetes Screening [facility] Start: 12-13-2025 Medicare Annual Wellness (AWV) Medicare Annual Wellness (AWV) [facility] Start: 02-26-2025 End: 02-26-2025 Patient encounter procedure 02/26/2025 10:30 AM EDT Office Visit [facility] [address] [place] [phone] Kenyetta Dove MD [address] [place] [address] [facility] Start: 02-18-2025 [facility] Start: 02-12-2025 End: 02-12-2025 Patient encounter procedure [facility] Start: 02-06-2025 End: 02-06-[address] [facility] Start: 01-28-2025 Influenza vaccination [facility] Start: 01-19-2025 Screening for malignant neoplasm of breast Mammogram [facility] Start: 12-20-2024 End: 12-20-2024 Patient encounter procedure 12/20/2024 3:00 PM EDT Office Visit [facility] [address] [place] [address] [facility] Start: 12-19-2024 End: 12-19-2024 Professional / ancillary services management 12/19/2024 11:45 AM EDT Ancillary Procedure [facility] [address] [place] [id number] [facility] Start: 12-07-2024 End: 01-05-2025 C reactive protein [Mass/volume] in Serum or Plasma by High sensitivity method High sensitivity CRP Lab Routine Bilateral lower extremity edema Pulmonary hypertension (HCC) Dyspnea, unspecified type Snoring Anasarca Essential hypertension History of anemia Hypoalbuminemia Hypoproteinemia (HCC) Expected: 12/07/2024 (Approximate), Expires: 01/05/2025 [facility] Comment on above: Expected: 12/07/2024 (Approximate), Expi res: 01/05/2025 Start: 12-07-2024 End: 01-05-2025 Comprehensive metabolic 2000 panel - Serum or Plasma Comprehensive metabolic panel Lab Routine Bilateral lower extremity edema Pulmonary hypertension (HCC) Dyspnea, unspecified type Snoring Anasarca Essential hypertension History of anemia Hypoalbuminemia Hypoproteinemia (HCC) Expected: 12/07/2024 (Approximate), Expires: 01/05/2025 [facility] Comment on above: Expected: 12/07/2024 (Approximate), Expi res: 01/05/2025 Start: 12-07-2024 End: 01-05-2025 Erythrocyte sedimentation rate Sedimentation rate, automated Lab Routine Bilateral lower extremity edema Pulmonary hypertension (HCC) Dyspnea, unspecified type Snoring Anasarca Essential hypertension History of anemia Hypoalbuminemia Hypoproteinemia (HCC) Expected: 12/07/2024 (Approximate), Expires: 01/05/2025 [facility] Work Phone: Comment on above: Expected: 12/07/2024 (Approximate), Expi res: 01/05/2025 Start: 12-07-2024 End: 01-05-2025 FREE K+L LT CHAINS,QN,S FREE K+L LT CHAINS,QN,S Lab Routine Bilateral lower extremity edema Pulmonary hypertension (HCC) Dyspnea, unspecified type Snoring Anasarca Essential hypertension History of anemia Hypoalbuminemia Hypoproteinemia (HCC) Expected: 12/07/2024 (Approximate), Expires: 01/05/2025 [facility] Comment on above: Expected: 12/07/2024 (Approximate), Expi res: 01/05/2025 Start: 12-07-2024 End: 01-05-2025 Hemoglobin a1c with eag Hemoglobin a1c with eag Lab Routine Bilateral lower extremity edema Pulmonary hypertension (HCC) Dyspnea, unspecified type Snoring Anasarca Essential hypertension History of anemia Hypoalbuminemia Hypoproteinemia (HCC) Expected: 12/07/2024 (Approximate), Expires: 01/05/2025 [facility] Comment on above: Expected: 12/07/2024 (Approximate), Expi res: 01/05/2025 Start: 12-07-2024 End: 01-05-2025 Magnesium [Mass/volume] in Serum or Plasma Magnesium Lab Routine Bilateral lower extremity edema Pulmonary hypertension (HCC) Dyspnea, unspecified type Snoring Anasarca Essential hypertension History of anemia Hypoalbuminemia Hypoproteinemia (HCC) Expected: 12/07/2024 (Approximate), Expires: 01/05/2025 [facility] Comment on above: Expected: 12/07/2024 (Approximate), Expi res: 01/05/2025 Start: 12-07-2024 End: 01-05-2025 Microalbumin/Creatinine panel in random Urine Microalbumin / creatinine urine ratio Lab Routine Bilateral lower extremity edema Pulmonary hypertension (HCC) Dyspnea, unspecified type Snoring Anasarca Essential hypertension History of anemia Hypoalbuminemia Hypoproteinemia (HCC) Expected: 12/07/2024 (Approximate), Expires: 01/05/2025 [facility] Comment on above: Expected: 12/07/2024 (Approximate), Expi res: 01/05/2025 Start: 12-07-2024 End: 01-05-2025 Nuclear Ab [Titer] in Serum by Immunofluorescence WILL Lab Routine Bilateral lower extremity edema Pulmonary hypertension (HCC) Dyspnea, unspecified type Snoring Anasarca Essential hypertension History of anemia Hypoalbuminemia Hypoproteinemia (HCC) Expected: 12/07/2024 (Approximate), Expires: 01/05/2025 [facility] Comment on above: Expected: 12/07/2024 (Approximate), Expi res: 01/05/2025 Start: 12-07-2024 End: 01-05-2025 Protein electrophoresis, serum Protein electrophoresis, serum Lab Routine Bilateral lower extremity edema Pulmonary hypertension (HCC) Dyspnea, unspecified type Snoring Anasarca Essential hypertension History of anemia Hypoalbuminemia Hypoproteinemia (HCC) Expected: 12/07/2024 (Approximate), Expires: 01/05/2025 [facility] Comment on above: Expected: 12/07/2024 (Approximate), Expi res: 01/05/2025 Start: 12-07-2024 End: 01-05-2025 Rheumatoid factor [Units/volume] in Serum or Plasma [facility] Comment on above: Expected: 12/07/2024 (Approximate), Expi res: 01/05/2025 Start: 12-07-2024 End: 01-05-2025 Urinalysis complete panel - Urine [facility] Comment on above: Expected: 12/07/2024 (Approximate), Expi res: 01/05/2025 Start: 12-07-2024 [facility] Start: 12-03-2024 End: 01-21-2025 Basic metabolic 1998 panel - Serum or Plasma Basic metabolic panel Lab Routine Bilateral lower extremity edema Expected: 12/03/2024, Expires: 01/21/2025 [facility] Comment on above: Expected: 12/03/2024, Expires: Start: 11-22-2024 End: 12-21-2024 Basic metabolic 1998 panel - Serum or Plasma Basic metabolic panel Lab Routine Bilateral lower extremity edema Expected: 11/22/2024 (Approximate), Expires: 12/21/2024 [facility] Work Phone: Comment on above: Expected: 11/22/2024 (Approximate), Expi res: 12/21/2024 Start: 11-22-2024 End: 12-21-2024 Natriuretic peptide B [Mass/volume] in Blood B-type natriuretic peptide Lab Routine Bilateral lower extremity edema Expected: 11/22/2024 (Approximate), Expires: 12/21/2024 [facility] Comment on above: Expected: 11/22/2024 (Approximate), Expi res: 12/21/2024 Start: 10-25-2024 Adrenocorticotropic hormone measurement [facility] Start: 10-25-2024 [facility] Start: 10-10-2024 End: 01-07-2025 Comprehensive metabolic 2000 panel - Serum or Plasma Comprehensive metabolic panel Lab Routine SOB (shortness of breath) on exertion Bilateral leg edema Expected: 10/10/2024 (Approximate), Expires: 01/07/2025 [facility] Comment on above: Expected: 10/10/2024 (Approximate), Expi res: 01/07/2025 Start: 10-10-2024 End: 01-07-2025 Microalbumin/Creatinine panel in random Urine Microalbumin / creatinine urine ratio Lab Routine SOB (shortness of breath) on exertion Bilateral leg edema Expected: 10/10/2024 (Approximate), Expires: 01/07/2025 [facility] Comment on above: Expected: 10/10/2024 (Approximate), Expi res: 01/07/2025 Start: 10-10-2024 End: 01-07-2025 Natriuretic peptide B [Mass/volume] in Blood B-type natriuretic peptide Lab Routine SOB (shortness of breath) on exertion Bilateral leg edema Expected: 10/10/2024 (Approximate), Expires: 01/07/2025 [facility] Comment on above: Expected: 10/10/2024 (Approximate), Expi res: 01/07/2025 Start: 08-01-2024 End: 08-01-2024 Patient encounter procedure 08/01/2024 1:00 PM EST [facility] [address] [place] [id number] Melissa Coon MD [address] [place] [address] [facility] Start: 06-18-2024 XR pre/post mri xray XR pre/post mri xray [facility] Start: 06-18-2024 [facility] Start: 06-18-2024 MR lumbar spine wo con MR lumbar spine wo con [facility] Start: 06-18-2024 MR Lumbar spine WO contrast [facility] Start: 02-28-2024 End: 02-27-2025 Thyrotropin [Units/volume] in Serum or Plasma TSH Lab Routine Postoperative hypothyroidism (CMS/HCC) Expected: 02/28/2024 (Approximate), Expires: 02/27/2025 [facility] Comment on above: Expected: 02/28/2024 (Approximate), Expi res: 02/27/2025 Start: 02-28-2024 End: 02-27-2025 Thyroxine (T4) free [Mass/volume] in Serum or Plasma T4, free Lab Routine Postoperative hypothyroidism (CMS/HCC) Expected: 02/28/2024 (Approximate), Expires: 02/27/2025 [facility] Comment on above: Expected: 02/28/2024 (Approximate), Expi res: 02/27/2025 Start: 02-28-2024 End: 02-27-2025 Triiodothyronine (T3) Free [Mass/volume] in Serum or Plasma T3, free Lab Routine Postoperative hypothyroidism (CMS/HCC) Expected: 02/28/2024 (Approximate), Expires: 02/27/2025 [facility] Work Phone: Comment on above: Expected: 02/28/2024 (Approximate), Expi res: 02/27/2025 Start: 02-28-2024 End: 02-28-2024 Patient encounter procedure 02/28/2024 9:50 AM EDT Office Visit [facility] [address] [place] [address] Kenyetta Dove MD [address] [place] [address] Arrived [facility] Comment on above: Arrived Start: 02-20-2024 End: 02-20-2024 Patient encounter procedure 02/20/2024 10:30 AM EDT Office Visit [facility] [address] [place] [address] Kenyetta Dove MD [address] [place] [address] [facility] Start: 01-29-2024 Influenza vaccination Influenza Vaccine (#1) [facility] Start: 01-24-2024 End: 01-23-2025 CBC W Auto Differential panel - Blood CBC and differential Lab Routine History of anemia Expected: 01/24/2024 (Approximate), Expires: 01/23/2025 [facility] Work Phone: Comment on above: Expected: 01/24/2024 (Approximate), Expi res: 01/23/2025 Start: 01-24-2024 End: 01-23-2025 Comprehensive metabolic 2000 panel - Serum or Plasma Comprehensive metabolic panel Lab Routine Essential hypertension (CMS/HCC) Expected: 01/24/2024 (Approximate), Expires: 01/23/2025 [facility] Comment on above: Expected: 01/24/2024 (Approximate), Expi res: 01/23/2025 Start: 01-24-2024 End: 01-23-2025 Ferritin [Mass/volume] in Serum or Plasma Ferritin Lab Routine History of anemia Expected: 01/24/2024 (Approximate), Expires: 01/23/2025 [facility] Comment on above: Expected: 01/24/2024 (Approximate), Expi res: 01/23/2025 Start: 01-24-2024 End: 01-23-2025 Iron and Iron binding capacity panel - Serum or Plasma Iron and TIBC Lab Routine History of anemia Expected: 01/24/2024 (Approximate), Expires: 01/23/2025 [facility] Comment on above: Expected: 01/24/2024 (Approximate), Expi res: 01/23/2025 Start: 01-24-2024 End: 01-23-2025 Lipid 1996 panel - Serum or Plasma Lipid panel Lab Routine Essential hypertension (CMS/HCC) Expected: 01/24/2024 (Approximate), Expires: 01/23/2025 [facility] Comment on above: Expected: 01/24/2024 (Approximate), Expi res: 01/23/2025 Start: 01-24-2024 End: 01-23-2025 Microalbumin/Creatinine panel in random Urine Microalbumin / creatinine urine ratio Lab Routine Essential hypertension (CMS/HCC) Expected: 01/24/2024 (Approximate), Expires: 01/23/2025 [facility] Comment on above: Expected: 01/24/2024 (Approximate), Expi res: 01/23/2025 Start: 01-24-2024 End: 01-23-2025 Thyrotropin [Units/volume] in Serum or Plasma TSH Lab Routine Acquired hypothyroidism (CMS/HCC) Expected: 01/24/2024 (Approximate), Expires: 01/23/2025 [facility] Comment on above: Expected: 01/24/2024 (Approximate), Expi res: 01/23/2025 Start: 01-24-2024 End: 01-23-2025 Urinalysis complete panel - Urine Urinalysis with microscopic Lab Routine Essential hypertension (CMS/HCC) Expected: 01/24/2024 (Approximate), Expires: 01/23/2025 [facility] Comment on above: Expected: 01/24/2024 (Approximate), Expi res: 01/23/2025 Start: 12-30-2023 Screening for malignant neoplasm of breast [facility] Start: 11-08-2023 Screening for malignant neoplasm of cervix [facility] Start: 07-22-2023 Bacteria identified in Blood by Culture [facility] Start: 04-20-2023 FUV, Provider: Phillip Benjamin, Status: Pen, Time: 3:00 PM FUV, Provider: Phillip Benjamin, Status: Pen, Time: 3:00 PM [place] [address] DO Work Phone: Start: 03-29-2023 [facility] Start: 03-29-2023 End: 03-29-2023 [facility] Start: 01-28-2023 Influenza vaccination Influenza Vaccine (#1) [facility] Start: 01-24-2023 Duplex scan of lower limb veins US venous duplex LE LT [facility] Start: 01-24-2023 US Lower extremity vein - left [facility] Start: 12-31-2022 Medicare Annual Wellness (AWV) Medicare Annual Wellness (AWV) [facility] Start: 12-30-2022 CT of head without contrast CT head/brain wo con [facility] Start: 12-30-2022 CT Unspecified body region WO contrast [facility] Start: 12-08-2022 FUV, Provider: Phillip Benjamin, Status: Pen, Time: 8:40 AM FUV, Provider: Phillip Benjamin, Status: Pen, Time: 8:40 AM [facility] [address] [place] Work Phone: Start: 12-02-2022 FUV, Provider: Phillip Benjamin, Status: Pen, Time: 3:00 PM FUV, Provider: Phillip Benjamin, Status: Pen, Time: 3:00 PM [facility] DO Work Phone: Start: 11-25-2022 ECHO, Provider: [place] RODRIGUEZI ULTRASOUND 01,[id number], Status: Pen, Time: 7:45 AM ECHO, Provider: [place] HHVI ULTRASOUND 01,[id number], Status: Pen, Time: 7:45 AM [facility] [address] [place] Work Phone: Start: 09-30-2022 End: 10-01-2023 DOWNLOAD POWERSHARE IMAGES TO [employer] DOWNLOAD POWERSHARE IMAGES TO [facility] Imaging Routine Thoracic spine pain Expected: 09/30/2022, Expires: 10/01/2023 [facility] [employer] Work Phone: Comment on above: Expected: 09/30/2022, Expires: Start: 09-17-2022 End: 09-18-2023 DOWNLOAD POWERSHARE IMAGES TO [facility] DOWNLOAD POWERSHARE IMAGES TO [facility] Imaging Routine Thoracic spine pain Expected: 09/17/2022, Expires: 09/18/2023 [facility] [employer] Work Phone: Comment on above: Expected: 09/17/2022, Expires: 4 Start: 09-06-2022 End: 09-07-2023 CT Thoracic spine WO contrast CT T-SPINE W/O CONTRAST Imaging Within 1 week Thoracic spine pain Expected: 09/06/2022, Expires: 09/07/2023 [facility] [employer] Work Phone: Comment on above: Expected: 09/06/2022, Expires: 4 Start: 09-02-2022 End: 09-02-2022 Patient encounter procedure 09/02/2022 Office Visit Orthopedics Javad Leach MD [address] [place] [address] [facility] Start: 08-24-2022 End: 08-25-2023 DOWNLOAD POWERSHARE IMAGES TO [employer] DOWNLOAD POWERSHARE IMAGES TO [employer] Imaging Routine Cervical spondylosis with myelopathy Expected: 08/24/2022, Expires: 08/25/2023 [facility] [employer] Work Phone: Comment on above: Expected: 08/24/2022, Expires: 4 Start: 08-21-2022 Screening for malignant neoplasm of colon [facility] Start: 08-10-2022 [facility] Start: 2022 Cholesterol [Mass/volume] in Serum or Plasma Cholesterol [facility] Start: 2022 Lipid panel Lipid Screening [facility] Start: 2022 Screening for malignant neoplasm of colon [facility] Start: 02-27-2022 Influenza vaccination Influenza Vaccine (#1) [facility] Start: 01-29-2020 Influenza vaccination INFLUENZA (#1) [facility] Start: 2017 Mammography MAMMOGRAM [facility] Start: 2017 Screening for malignant neoplasm of breast Mammography [facility] Start: 11-28-2015 Annual wellness visit Annual Wellness Visit (G0438) [facility] Start: 2007 HPV TESTING HPV TESTING [facility] Start: 2007 Screening for malignant neoplasm of cervix HPV Testing [facility] Start: 04-04-2001 Screening for malignant neoplasm of cervix Pap Smear [facility] Start: 1998 PAP TESTING PAP TESTING [facility] Start: 1998 Screening for malignant neoplasm of cervix [facility] Start: 1996 Urine microalbumin profile DTAP,TDAP,TD (1 - Tdap) [facility] Start: 1995 ANNUAL PCP TEAM CHRONIC DISEASE VISIT ANNUAL PCP TEAM CHRONIC DISEASE VISIT [facility] Start: 1995 HEPATITIS C SCREENING HEPATITIS C SCREENING [facility] Start: 1995 [facility] Start: 1995 HIV SCREENING HIV SCREENING [facility] Start: 1995 HIV screening HIV Screening [facility] Start: 1995 Tetanus + diphtheria + acellular pertussis vaccine (product) [facility]ap [facility] Start: 1992 HIV screening HIV Test [facility] Start: 1988 Urine microalbumin profile DTaP,Tdap,Td Vaccine (4 - Tdap) [facility] Start: 1977 COVID-19 Vaccine (#1) COVID-19 Vaccine (#1) [facility] Start: 1977 Screening for malignant neoplasm of colon [facility] 25-hydroxyvitamin D2 [Mass/volume] in Serum or Plasma [facility] 25-hydroxyvitamin D3 [Mass/volume] in Serum or Plasma [facility] 25-Hydroxyvitamin D3+25-Hydroxyvitamin D2 [Mass/volume] in Serum or Plasma [facility] Albumin [Mass/volume ] in Serum or Plasma [facility] Albumin [Mass/volume ] in Serum or Plasma [facility] Albumin/Globulin ratio [facility] Albumin/Globulin ratio [facility] Borrelia burgdorferi Ab [Interpretation] in Serum [facility] Borrelia burgdorferi IgG Ab [Presence] in Serum or Plasma by Immunoassay [facility] Borrelia burgdorferi IgG+IgM Ab [Presence] in Serum by Immunoassay [facility] Borrelia burgdorferi IgM Ab [Presence] in Serum or Plasma by Immunoassay [facility] Cefuroxime free [Mass/volume] in Serum or Plasma [facility] Comprehensive metabo lic 2000 panel - Serum or Plasma Comprehensive metabolic panel Lab Routine 02/01/2024 10:15 AM EDT [facility] Work Phone: CT Abdomen and Pelvi s W contrast IV CT abdomen pelvis w IV contrast Imaging Routine Bilateral lower extremity edema Pain of upper abdomen Ordered: 12/13/2024 [facility] Work Phone: Comment on above: Ordered: 12/13/2024 Electrophoresis: [id number] [facility] Electrophoresis: [id number] [facility] Electrophoresis: [id number] [facility] Electrophoresis: [id number] [facility] Electrophoresis: beta-globulin [facility] Electrophoresis: beta-globulin [facility] Electrophoresis: raisa ma globulin [facility] Electrophoresis: raisa ma globulin [facility] Estrogen [Mass/volum e] in Serum or Plasma [facility] Globulin [Mass/volum e] in Serum [facility] Globulin [Mass/volum e] in Serum [facility] Homogenous nuclear A b pattern [Titer] in Serum [facility] Iron and Iron bindin g capacity panel - Serum or Plasma Iron and TIBC Lab Routine 02/01/2024 10:15 AM EDT [facility] Dortches light chains.f ree [Mass/volume] in Serum [facility] Dortches light chains.free/Lambda light chains.free [Mass Ratio] in Serum [facility] Lambda light chains. free [Mass/volume] in Serum or Plasma [facility] Lipid 1996 panel - S zakia or Plasma Lipid panel Lab Routine 02/01/2024 10:15 AM EDT [facility] Lutropin [Units/volu me] in Serum or Plasma [facility] MR Knee - left WO contrast [facility] Nuclear Ab [Titer] in Serum [facility] Patient Education [facility] Work Phone: Patient referral [facility] Work Phone: Progesterone [Mass/v olume] in Serum or Plasma [facility] Protein [Mass/volume ] in Serum or Plasma [facility] Protein [Mass/volume ] in Serum or Plasma [facility] Rheumatoid factor [Units/volume] in Serum or Plasma [facility] US Heart Transthoracic Transthor acic echo (TTE) complete Echocardiography Routine Lower extremity edema SOB (shortness of breath) on exertion Ordered: 10/09/2024 [facility] [employer] Work Phone: Comment on above: Ordered: 10/09/2024 XR Chest 2 Views XR chest 2 view s Imaging Routine Bilateral lower extremity edema Pulmonary hypertension (HCC) Dyspnea, unspecified type Snoring Anasarca Essential hypertension History of anemia Hypoalbuminemia Hypoproteinemia (HCC) Ordered: 12/06/2024 [facility] [employer] Comment on above: Ordered: 12/06/2024 [facility] Immunizations Immunization Date Immunization Notes Care Provider Watson [email or web address] 06-05-2001 hepatitis B vaccine, adult dosage Donya S Awa Work Phone: [facility] [address] DO Work Phone: 12-28-2000 hepatitis B vaccine, adult dosage [facility] S Awa [facility] Work Phone: 11-21-2000 measles, mumps and rubella virus vaccine Donya S Awa Work Phone: [facility] Work Phone: 11-14-2000 hepatitis B vaccine, adult dosage [facility]onya S Awa [facility] Work Phone: 01-07-1983 measles, mumps and rubella virus vaccine Donya S Awa Work Phone: [facility] Work Phone: 10-11-1979 diphtheria, tetanus toxoids and acellular pertussis vaccine, unspecified formulation [facility] S Awa [facility] Work Phone: 10-11-1979 poliovirus vaccine, inactivated [facility] S Awa [facility] Work Phone: 08-01-1979 diphtheria, tetanus toxoids and pertussis vaccine [facility]a S Awa [facility] Work Phone: 08-01-1979 poliovirus vaccine, inactivated Donya Ashraf Awa [facility]: [facility] Work Phone: 04-18-1979 diphtheria, tetanus toxoids and pertussis vaccine Donya Ashraf Awa [facility] Work Phone: 05-13-1978 diphtheria, tetanus toxoids and pertussis vaccine Donya Ashraf Awa [facility] Work Phone: 05-13-1978 poliovirus vaccine, inactivated Donya Billings [facility]: [facility] Work Phone: 1977 poliovirus vaccine, inactivated Donya Billings [facility] Work Phone: Payers Date Payer Category Payer Self-pay [id number] 2022 Medicaid [id number] 2013 Medicare [id number]. [id number] 1977 Unknown [id number] 2.16. 840.1.036947.3.579.2.732 1977 Unknown [id number] 2.16. 840.1.703557.3.579.2.732 1977 Unknown [id number] 2.16.84 0.1.775185.3.579.2.593 1977 Unknown [id number] 2.16.84 0.1.603764.3.579.2.593 1977 Unknown [id number] 2.16.84 0.1.578533.3.579.2.593 1977 Unknown [id number] 2.16.84 0.1.047909.3.579.2.593 1977 Unknown [id number] 2.16.84 0.1.823737.3.579.2.593 1977 Unknown [id number] 2.16.84 0.1.291121.3.579.2.593 1977 Unknown [id number] 2.16.84 0.1.937855.3.579.2.593 1977 Unknown [id number] 2.16.84 0.1.955587.3.579.2.593 1977 Unknown [id number] 2.16.8 40.1.400681.3.579.2.1068 1977 Unknown [id number] 2.16.8 40.1.171034.3.579.2.1068 1977 Unknown [id number] 2.16. 840.1.092792.3.579.2.356 1977 Unknown [id number] 2.16. 840.1.332850.3.579.2.356 1977 Unknown [id number] 2.16. 840.1.513526.3.579.2.356 1977 Unknown [id number] 2.16. 840.1.858853.3.579.2.356 1977 Unknown [id number] 2.16. 840.1.076352.3.579.2.356 1977 Unknown [id number] 2.16.8 40.1.480692.3.579.2.727 1977 Unknown [id number] 2.16.8 40.1.983983.3.579.2.727 1977 Unknown [id number] 2.16.8 40.1.587844.3.579.2.727 1977 Unknown [id number] 2.16. 840.1.768636.3.579.2. 1977 Unknown [id number] 2.16. 840.1.016146.3.579.2. 1977 Unknown [id number] 2.16. 840.1.284979.3.579.2. 1977 Unknown [id number] 2.16. 840.1.240802.3.579.2. 1977 Unknown [id number] 2.16. 840.1.158213.3.579.2. 1977 Unknown [id number] 2.16. 840.1.494671.3.579.2. 1977 Unknown [id number] 2.16. 840.1.853089.3.579.2. 1977 Unknown [id number] 2.16. 840.1.932277.3.579.2. 1977 Unknown [id number] 2.16.8 40.1.885338.3.579.2.1258 1977 Unknown [id number] 2.16.8 40.1.908595.3.579.2.1258 1977 Unknown [id number] 2.16.8 40.1.426634.3.579.2.9 1977 Unknown [id number] 2.16.8 40.1.889941.3.579.2.1258 1977 Unknown [id number] 2.16.8 40.1.750231.3.579.2.1258 1977 Unknown [id number] 2.16.8 40.1.259292.3.579.2.1258 1977 Unknown [id number] 2.16.84 0.1.252357.3.579.2.1258 1977 Unknown [id number] 2.16.84 0.1.189502.3.579.2.125 1977 Unknown [id number] 2.16.84 0.1.764390.3.579.2.1259 1977 Unknown [id number] 2.16.84 0.1.062544.3.579.2.1259 1977 Unknown [id number] 2.16.84 0.1.451959.3.579.2.1259 1977 Unknown [id number] 2.16.84 0.1.565997.3.579.2.1259 1959 Medicaid [id number] 2. 16.840.1.766061.19 1959 Medicare [id number] 2.1 6.840.1.308606.19 Unknown Unknown [id number] 2.16.8 40.1.356505.3.579.2.531 Unknown [id number] 2.16.8 40.1.973246.3.579.2.531 Unknown [id number] 2.16.8 40.1.675572.3.579.2.531 Unknown [id number] 2.16.8 40.1.089190.3.579.2.531 Unknown [id number] 2.16.8 40.1.930485.3.579.2.531 Unknown [id number] 2.16.8 40.1.164109.3.579.2.531 Unknown [id number] 2.16.8 40.1.899964.3.579.2.531 Unknown [id number] 2.16.8 40.1.761257.3.579.2.531 Unknown [id number] 2.16.8 40.1.078924.3.579.2.531 Unknown [id number] 2.16.8 40.1.510745.3.579.2.531 Unknown [id number] 2.16.8 40.1.065882.3.579.2.531 Unknown [id number] 2.16.8 40.1.848447.3.579.2.531 Unknown [id number] 2.16.8 40.1.759895.3.579.2.531 Unknown [id number] 2.16.8 40.1.813402.3.579.2.531 Unknown [id number] 2.16.8 40.1.076029.3.579.2.531 Unknown [id number] 2.16.8 40.1.121504.3.579.2.531 Unknown [id number] 2.16.8 40.1.850592.3.579.2.531 Social History Date Type Detail Facility Tobacco smoking status [facility] Unknown if ever smoked [facility] Start: 1975 Sex Assigned At Not on file [facility] Start: 05-17-2023 End: 12-13-2024 Sex Assigned At [employer] [facility] [employer] Other Start: 11-19-2019 End: 01-02-2025 Tobacco smoking status [facility] Ex-smoker (finding) [facility] Start: 1975 Sex Assigned At Female [facility] Start: 06-21-2022 End: 06-21-2022 Tobacco smoking status [facility] Never smoked tobacco (finding) [facility] Start: 05-17-2023 End: 12-13-2024 Current smoker Current smoker [facility] 250 DO Work Phone: Comment on above: gilson; quit 01/28/22; Tobacco smoking status [facility] Tobacco [facility] consumption [facility] Start: 12-20-2022 End: 09-20-2023 History of tobacco use [facility] End: 07-30-2011 History of tobacco use Cigarette Smoker [facility] Start: 09-02-2022 End: 01-24-2024 Tobacco use and exposure Smokeless [facility] Start: 05-17-2023 Alcohol intake 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 (finding) [facility] National Score (1-100), lower number is lower risk 65 [facility] Start: 01-18-2014 Alcohol Comment socially [facility] Start: 07-22-2023 End: 07-22-2023 Tobacco smoking status NHIS Current some day smoker [facility] Start: 01-24-2024 Tobacco smoking status NHIS Smokes tobacco daily [facility] Start: 02-20-2024 End: 01-11-2025 Alcoholic beverage intake Lifetime non-drinker (finding) [facility] Start: 01-24-2024 Tobacco Comment Pt smoked 1/2 ppd since age 17 years old. [facility] Start: 06-19-2024 End: 10-25-2024 Sex Female (finding) [facility] NEGATED: Highlighted row [facility] NEGATED: Highlighted row Not [facility] NEGATED: Highlighted row N [facility] Goals Date Patient Goal Desired Activity /State Functional Status Date Assessment Result Facility 12-13-2024 Patient Health Quest ionnaire 2 item (PHQ-2) [Reported] [facility] Clinical Notes 11-12-2021 to 01-11-2025 Dalia Dennis NP - 01/11/2025 1:30 PM MARITZA Davenport - 12/20/2024 3:00 PM Joe Coon MD - 12/13/2024 10:45 AM Mary Carmen Quan NP - 12/06/2024 3:30 PM EDT Note Date & Type Note Facility 01-11-2025 History of Presen t illness Narrative Images [...] and bearing weight on her legs. She describes a sensation of instability in her knee, as if something is out of place, and fears that her leg might buckle if she moves her knee incorrectly. She has been using a rollator for mobility and a shower chair for bathing due to her inability to stationary engineer the shower. An x-ray conducted at the ER on 01/02/2025 did not reveal any abnormalities. She also consulted an resident program specialist earlier this week who performed another x-ray, which also showed no issues. The ER prescribed steroids, which provided minimal relief initially but were ineffective thereafter. The resident program specialist suggested a one-time steroid injection and [...] Morbid obesity with BMI of 40.0-44.9, adult ([facility]) Nonscarring hair loss, unspecified Postprocedural hypothyroidism Primary [...] MEDICATIONS: Current Outpatient Medications Medication Instructions B Irtbsnr-Luwrco-DI (Super Quints B-50) tablet Take by mouth [...] Wt 323 lb SpO2 99% BMI 50.59 kg/m Smoking Status Every Day BSA 2.64 m BP Readings from Last 3 Encounters: 01/11/25 [...] Continue using Tylenol as needed. - HYDROcodone-acetaminophen ([place]) 5-325 MG tablet; Take 1-2 tablets by mouth every 6 (six) hours if needed for severe pain for up to 7 days Dispense: 42 tablet; Refill: 0 Follow-up - MRI scheduling confirmed. documented in this encounter [facility] 12-20-2024 History of Presen t illness Narrative Lupe [...] Morbid obesity with BMI of 40.0-44.9, adult ([facility]) Nonscarring hair loss, unspecified Postprocedural hypothyroidism Primary [...] MEDICATIONS: Current Outpatient Medications Medication Instructions B Xtseoox-Okazsl-FP (Super Quints B-50) tablet Take by mouth [...] lb 9.6 oz SpO2 97% BMI 50.68 kg/m Smoking Status Every Day BSA 2.64 m BP Readings from Last 3 Encounters: 12/20/24 [...] the right renal cyst. The CT scan did not reveal any obstructive causes such as lymphadenopathy. - She has been advised to adhere to a diet low in sodium (<1800 mg/day) and saturated fats, following the [place] [employer] guidelines. - The use of [...] importance of probiotics and prebiotics, such as Grenadian yogurt and luis seeds, was discussed to support gut health. - Continued monitoring of liver function and dietary adherence will be necessary. 3. Sleep apnea. - A sleep study has been completed, but the results are pending. - Once the sleep study results are available, the initiation of GLP-1 injectable medication will be considered to help with her overall condition, including leg swelling. - Coordination with the sleep specialist to obtain the study results and proceed with treatment. Follow-up: The patient will follow up on 02/06/2025 or sooner if necessary. documented in this encounter [facility] 12-13-2024 History of Presen t illness Narrative [...] has discontinued Lasix and diltiazem at the inbound sales consultant recommendation. She was prescribed Keflex, but it did not alleviate her symptoms. She was previously on Lasix 40 mg twice daily and potassium 20 mg twice daily, but these medications were discontinued by her inbound sales consultant, at [facility], who instead prescribed losartan hydrochlorothiazide. This new [...] stimulator surgery for her back pain at [facility]. 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 - Suspected contribution to pulmonary hypertension and [...] Nerve stimulator surgery scheduled for 12/17/2024 at [facility]. 5. Pulmonary hypertension -mild, on echo, [...] with documentation above. documented in this encounter [facility] 12-06-2024 History of Presen t illness Narrative Lupe Pickard is a 49 y.o. female presents with chief complaint of Edema (Office visit with Dalia on 11/21 for bilateral lower extremity edema and cellulitis rt lower extremity. She was advised by inbound sales consultant to stop Lasix and she was prescribed [...] pain. She had been using gel nail kazakh on her toes, which was removed last [...] days. She has not introduced any new ugyn-yhw-nqtjphw vitamins or supplements. She has been experiencing [...] weight gain. - Alleviating/Aggravating Factors: No new crmj-sbi-bypxjgn vitamins or supplements; stopped taking turmeric for [...] a sleep study scheduled for 01/2025. Her inbound sales consultant diagnosed her with sleep apnea based on [...] pain prompting an x-ray. Insulin Resistance Her inbound sales consultant mentioned that she is insulin resistant based [...] had her thyroid levels checked by her vendor specialist. She is taking iron supplements and is [...] Morbid obesity with BMI of 40.0-44.9, adult ([facility]) Nonscarring hair loss, unspecified Postprocedural hypothyroidism Primary [...] MEDICATIONS: Current Outpatient Medications Medication Instructions B Utojbhy-Zcxmzh-RX (Super Quints B-50) tablet Take by mouth [...] and potential allergic reaction to gel nail kazakh. - Urinalysis will be conducted to check [...] - Coded as having sleep apnea by inbound sales consultant based on symptoms and echocardiogram. - Sleep study scheduled for 01/2025. Follow-up - Follow-up in [address] Coon was present in office suite today and is supervising patient care and available for consult. I'm following his plan of care for the above problems. Previous notes and plan were reviewed and followed. documented in this encounter [facility] 11-29-2024 Evaluation note Diagnosis Onset Date Resolution Acquired hypothyroidism acute J 2024 9:36am Anxiety and depression acute 2024 9:36am Chronic back pain acute November 9:36am Insomnia acute November 29, 2024 9:36am Pulmonary hypertension acute 2024 9:36am Sleep apnea acute November 29 9:36am Sleep related hypoxia acute Nov 9:36am [facility] Work Phone: 1(657) 237-248407-03-2025 Evaluation note* Diagnosis Onset Date Resolution Status Admit Date Acquired hypothyroidism acute J 2024 9:36am Anxiety and depression acute 2024 9:36am Chronic back pain acute November 9:36am Insomnia acute November 29, 2024 9:36am Pulmonary hypertension acute 2024 9:36am Sleep apnea acute November 29 9:36am Sleep related hypoxia acute Nov 9:36am Leg swelling acute December 26, 2 025 8:57am [facility] Work Phone: 1(930) 816-878406-30-2025 NotePatient Education Urology Botulinum Toxin Bladder Injection [...] including vitamins, herbs, eye drops, creams, and kulh-sdh-waiecrn medicines. ??? Any problems you or family [...] tells you to take them. ??? Taking crap-svg-mvlltin medicines, vitamins, herbs, and supplements. General instructions [...] these instructions at home: Medicines ??? Take xmki-auu-ihlscli and prescription medicines only as told by your health care provider. ??? If you were prescribed an antibiotic medicine, take it as told by your health care provider. Donot stop using the antibiotic even if you start to feel better. General instructions ??? If you were given a sedative during the procedure, (more content not included)...[facility]06-25-2025 History of Present illness Narrative* Dalia Dennis, KANDACE - 11/21/2024 10:15 AM EDT Images from [...] She is under the care of a inbound sales consultant at [facility] and does not have a primary care [...] Morbid obesity with BMI of 40.0-44.9, adult ([facility]) Nonscarring hair loss, unspecified Postprocedural hypothyroidism Primary [...] MEDICATIONS: Current Outpatient Medications Medication Instructions B Dmqkeme-Mghnfn-SU (Super Quints B-50) tablet Take by mouth [...] with urology on Tuesday. documented in this [facility]05-20-2025 History of Present illness Narrative* Amanda Montiel MD - 10/16/2024 1:54 PM EDT yeast documented in this [facility]05-13-2025 History of Present illness Narrative* MARITZA Corbin [...] uncertain about when she can see her validation scientist. She was previously prescribed clindamycin phosphate cream [...] stump Anxiety Bladder disorder Chronic fatigue Depression ([facility]) Fibromyalgia SANDRA (generalized anxiety disorder) ([facility] Graves disease ([facility]) Hypertension ([facility]) Hypothyroidism (acquired) ([facility]) Irritable bowel syndrome with constipation 01/24/2024 Lyme disease Mixed stress and urge urinary incontinence Morbid obesity with BMI of 40.0-44.9, adult ([facility]) Nonscarring hair loss, unspecified Postprocedural hypothyroidism ([facility]) Primary osteoarthritis involving multiple joints 01/24/2024 Urinary [...] MEDICATIONS: Current Outpatient Medications Medication Instructions B Gmsqjjw-Uwwulf-LN (Super Quints B-50) tablet Take by mouth [...] call us when she gets home from [place] on 10/15 and if persistent we will [...] chart today. - She is going to [place] on and coming back on 10/15/24, we are going to have her use topical metronidazole daily x 8 weeks with thin layer. But she [place] She will need to follow up with dermatology. documented in this [facility]02-20-2025 Evaluation note* Diagnosis Onset Date Resolution Status Admit Date Rotator cuff syndrome of right shoulder acute July 19, 025 2:50pm [facility] Work Phone: 1(608) 570-895612-16-2024 Evaluation note* Diagnosis Onset Date Resolution Status Admit Date Acute bacterial sinusitis noneactive May 14, 2024 1:54pm Acute bronchitis noneactive May 14, 2024 1:54pm [facility] Work Phone: 1(776) 284-805812-16-2024 Evaluation note* Diagnosis Onset Date Resolution Status Admit Date Acute bacterial sinusitis noneactive May 14, 2024 1:54pm Acute bronchitis noneactive May 14, 2024 1:54pm Rotator cuff syndrome of right shoulder acute July 19, 025 2:50pm [facility] Work Phone: 1([phone]) 466-751212-09-2024 Telephone encounter Note* Telephone Encounter - Cristobal Michaels - 05/07/2024 10:37 AM EST Please refill levothyroxine thank you! [id number] Miscellaneous Notes* Telephone Encounter - Cristobal Michaels - 05/07/2024 10:37 AM EST Please refill levothyroxine thank you! documented in this [facility]10-09-2024 History of Present illness Narrative* Betty Lawrence NP - 03/07/2024 11:15 AM EDT Oral prednisone to start tomorrow. Patient has had bursa site injections when she was a patient of Dr. Billings. If the IM steroid and oral steroid does not help will schedule with Dr. Sanderson if he is agreeable. documented in this encounterNorthwest Medical [id number] History of Present illness Narrative* Eliana Ch MA - 03/07/2024 11:00 AM EDT Subjective Patient ID: Lupe Pickard (: 1975) is a 48 y.o. female who presents for No chief complaint on file.. HPI Pt presents for right hip bursitis, nurse visit only. History of Present Illness Current Outpatient Medications Medication Instructions B Tgfkswf-Kqbbvg-IL (Super Quints B-50) tablet Oral Calcium Carb-Cholecalciferol (CALCIUM 600 + D PO) Oral cholecalciferol (Vitamin D-3) 50 MCG (2000 UT) capsule 1 capsule, Oral, Daily RT [...] -No follow-ups on file. documented in this encounterNorthwest Medical [id number] History of Present illness Narrative* Kenyetta Dove [...] T3 high. Currently she is on thyroid EMERGENCY MEDICINE PHYSICIAN ASSISTANT natural 60 mcg twice a day, cut back from 90 mcg twice a day and levothyroxine 50 mcg one-half tablet twice a day. SUBJECTIVE: MEDICATIONS: Current Outpatient Medications Medication Instructions B Lcyzref-Lbbliy-AL (Super Quints B-50) tablet Oral Calcium Carb-Cholecalciferol [...] 1 year (around 02/27/2025). documented in this encounterNorthwest Medical [id number] History of Present illness Narrative* Melissa Coon MD - 01/24/2024 3:00 PM EDT Images from the original note were not included. Lupe Pickard is a 48 y.o. female presents with chief complaint of Establish Care HPI: Patient is being seen to establish care. Former PCP was Dr. Singh, last seen approximately 2 months ago. She follows with several specialists, Dr. Ozuna, Dr. Dove, [facility], [facility] and Radha Mcintosh NP ([facility]). Patient would like to discuss [...] was previously under the care of a or manager, Dr. Brambila, who conducted blood tests and [...] for sleep apnea. She follows with Dr. oDve, Dr. Ozuna, and the pain clinic for her back pain. She is receiving injections and ablations and is considering a possible stimulator. She also sees a inbound sales consultant at [facility]. She sees Radha Mcintosh for her anxiety [...] MEDICATIONS: Current Outpatient Medications Medication Instructions B Qncwfin-Vlrakb-MO (Super Quints B-50) tablet Oral Calcium Carb-Cholecalciferol [...] Urinalysis with microscopic 2. Moderate major depression (CMS/HCC) Doing well. Continue current regimen. 3. SANDRA (generalized anxiety disorder) (CMS/HCC) Doing well. Continue current regimen. 4. Primary osteoarthritis involving multiple joints She weaned off opioids and is using CBD/THC gummies. 5. Fibromyalgia She had workup with Rheumatology in the past which was unremarkable according to pt. She no longer follows with Rheum. 6. Acquired hypothyroidism (CMS/HCC) Stable in June. Will recheck soon. - [...] (BMI) of 40.0 to 44.9 in adult ([facility]) Discussion about weight loss options. She is [...] mL; Refill: 0 15. BMI 40.0-44.9, adult ([facility]) As above. Patient was seen and examined with Dalia Dennis CNP. History was confirmed and verified. Lucia elements of the exam were also completed. Assessment and plan were reviewed and addended as needed. Agree with documentation above. documented in this encounterNorthwest Medical [id number] Evaluation note* Encounter Date Diagnosis Assessment Notes Treatment Notes Treatment Clinical Notes Jun, Cough (ICD-10 - R05.9) Jun, COVID (ICD-10 - U07.1) Rest. Drink plenty of fluids. Take frfd-xid-tpqslgb Tylenol or Motrin as needed for fever or discomfort. May continue to take wngg-dfu-ugftohb cold and flu medicine for symptom management of your COVID as needed, but you will need to follow the instructions on the box. May take iaok-qyg-iwhfjac Delsym or Robitussin for cough. Take the [...] to rest, drink plenty of fluids, take acpp-gkr-fmwhxxz Tylenol or Motrin as needed for fever or discomfort and may take wakb-nhc-nwhwvnh cold and flu medicine for symptom management of with COVID. Patient was told she can take iiiv-ivn-xxxrjaa cough medicine for her cough. She is to follow-up with her primary care provider if symptoms persist or go to the ER if symptoms worsen including chest pain shortness of breath difficulty breathing pain with deep breathing. Patient is agreeable to treatment plan. Jun, Sore throat (ICD-10 - J02.9) Jun, Acute streptococcal pharyngitis (ICD-10 - J02.0) [facility] Other 02-09-2024 Miscellaneous Notes* Telephone Encounter - Stephie Brambila MD - 07/08/2023 11:04 AM EST Called patient patient to discuss lab results. MARCIO panel, dsDNA, C3, C4 were normal. No major abnormalities with other labs. At this time, no signs of rheumatologic autoimmune disease. Discussed Dermatology evaluation for rash and hair loss. Stephie Brambila MD [facility] NoteHNO ID: [id number] Author: STEPHIE BRAMBILA MD Service: ? Author Type: Physician Type: Progress Notes Filed: 06/26/2023 14:11 Note Text: Rheumatology Clinic Date of Service: 05/24/2023 Patient: Lupe Pickard Medical Record: [id number] Last Rheumatology visit: 05/24/2023 (with Stehpie Brambila) [...] uses heat/ice, massage which helps. She takes [place] 5mg that does not do much for [...] 10 years. 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 Family History: No known FH of autoimmune [...] by mouth. CALCIUM CARBONATE (more content not included)...[facility] 05-17-2023 NoteHNO ID: [id number] Author: Stephie Brambila MD Service: ? Author Type: Physician Type: Progress Notes Filed: 05/17/2023 2:50 PM Note Text: Rheumatology Clinic Date of Service: 05/17/2023 Patient: Lupe Pickard Medical Record: [id number] Last [facility]: [facility] History of Present Illness Lupe Pickard [...] uses heat/ice, massage which helps. She takes [place] 5mg that does not do much for [...] 10 years. 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 Family History: No known FH of autoimmune [...] by mouth. CALCIUM CARBONATE/VITAMIN (more content not included)...[facility]* Encounter Date Diagnosis Assessment Notes Treatment Notes Treatment Clinical Notes Feb, Rash and nonspecific skin eruption (ICD-10 - R21) Likely rash is related to monitor adhesive, although iron cannot be fully excluded. Stop iron. Consult prescribing physician tomorrow about iron supplementation and follow thheir plan of care. Continue with heart monitor and call inbound sales consultant office tomorrow morning for guidance as she [...] Pt understood and agreed to treatment plan. [facility] Other 09-21-2023 Evaluation note* Encounter Date Diagnosis [...] Jan, Blood in stool (ICD-10 - K92.1) [facility] Other 04-06-2023 History of Present illness Narrative* [...] Risk protocol implemented: No documented in this [id number] History of Present illness Narrative* Javad Leach [...] Risk protocol implemented: No documented in this [id number] Evaluation note* Encounter Date Diagnosis Assessment Notes Treatment Notes Treatment Clinical Notes Aug, Irritable bowel syndrome with constipation (ICD-10 - K58.1) Start Amitiza 24mcg twice daily. Start Miralax in addition to Amitiza. Titrate dose as needed. Referral to [facility] for rectal manometry [facility] Other 03-01-2023 History of Present illness Narrative* [...] months or earlier if the need arise -[facility] [address] DO Work Phone: [phone]) 536-587502-16-2023 NoteCONSULTATION CONSULTATION DATE: 07/15/2022 HISTORY OF PRESENT ILLNESS: This is a 47-year-old female who returns to the clinic for a three month follow up for her chronic mid back pain and lower back pain. She was last seen on 04/15/2022 and, at that time, she received a referral to Dr. Bradley Leach at [facility]. She was having increased thoracic pain with [...] Bradley Leach at his new location at [facility] in [place]. Refills for baclofen and tramadol at the set dose and frequency will be sent to her pharmacy. We will furnish a letter to her PCP, at the patient's request, to take over her tramadol prescription. She will be followed up in the office post procedure.[facility] [id number] Note CONSULTATION PROCEDURE DATE: 07/29/2022 PREOPERATIVE DIAGNOSIS: [...] will be followed up in the office.[facility] [id number] Evaluation note* Encounter Date Diagnosis Assessment Notes Treatment Notes Treatment Clinical Notes Apr, Irritable bowel syndrome with constipation (ICD-10 - K58.1) Stop Amitiza Start Trualcne 3mg daily Follow up in 3-4 months [facility] Other 11-30-2022 Evaluation note* Encounter Date Diagnosis [...] (ICD-10 - J02.9) strep neg, see above. [facility] Other 11-17-2022 NoteCONSULTATION CONSULTATION DATE: 04/15/2022 HISTORY [...] send a referral to spine surgeon in [place], Dr. Bradley Leach. Patient is in agreement to this, and we will follow her up at our clinic in three months' time.[facility] [id number] NoteCONSULTATION CONSULTATION DATE: 01/06/2022 This is a [...] to initial consultation and prefers this at [facility]. We will see the patient in three months' time unless otherwise indicated.[facility] [id number] NoteCONSULTATION PROCEDURE DATE: 01/06/2022 PRE AND POSTOPERATIVE [...] will be followed up in the office.[facility] 11-12-2021 NoteCONSULTATION CONSULTATION DATE: 11/12/2021 HISTORY OF [...] Patient agrees with the plan of care. [facility] Signed and Approved by: BHAVNA MARR . 11/25/2021 16:24:00[facility] noteNo assessment information availableKindred Hospital Lima Work Phone: Evaluation noteNo InformationNort Endorse.me Other Evaluation note* Diagnosis Cervical spondylosis with [...] Onset Date Resolution Status Abdominal pain acute [facility] Work Phone: Evaluation note* Diagnosis Onset Date Resolution Status Rotator cuff syndrome of right shoulder acute [facility] Work Phone: Evaluation note* Diagnosis Onset Date Resolution Status Rotator cuff syndrome of right shoulder acute Sinusitis, acute maxillary n oneactive Bronchitis noneactive [facility] Work Phone: Evaluation note* Diagnosis Onset Date Resolution Status Sinusitis, acute maxillary n oneactive Bronchitis noneactive [facility] Work Phone: Evaluation note* Diagnosis Postoperative hypothyroidism ([facility]/HCC)- Primary Postsurgical hypothyroidism Encounter for dietary consultation Vitamin D deficiency Class 3 severe obesity without serious comorbidity with body mass index (BMI) of 40.0 to 44.9 in adult, unspecified obesity type (CMS/HCC) documented in this encounter [facility] HealthcareEvaluation [facility]* Diagnosis Bursitis of other bursa of right hip- Primary [facility] in [facility] encounter [facility] HealthcareEvaluation [facility]* Diagnosis Bursitis of other bursa of right hip documented in this encounter [facility] HealthcareEvaluation note* Diagnosis Essential hypertension (CMS/HCC)- Primary Unspecified essential hypertension Moderate major depression (CMS/HCC) Major depressive disorder, single episode, moderate SANDRA (generalized anxiety disorder) (CMS/HCC) Generalized anxiety disorder Primary osteoarthritis involving multiple joints Fibromyalgia Unspecified myalgia and myositis Acquired hypothyroidism ([facility]) Unspecified hypothyroidism Irritable bowel syndrome with constipation [...] (BMI) of 40.0 to 44.9 in adult ([facility]) BMI 40.0-44.9, adult ([facility]) documented in this encounter [facility] HealthcareEvaluation note* Diagnosis Lower extremity edema- Primary Edema SOB (shortness of breath) on exertion Shortness of breath Bilateral leg edema Edema Rosacea documented in this encounter [facility] HealthcareEvaluation note* Diagnosis Acute vaginitis- Primary Unspecified vaginitis and vulvovaginitis documented in this encounter [facility] HealthcareEvaluation note* Diagnosis Bilateral lower extremity edema- Primary Essential hypertension Unspecified essential hypertension Pulmonary hypertension (HCC) Other chronic pulmonary heart diseases Cellulitis of right lower extremity Snoring Other dyspnea and respiratory abnormality documented in this encounter [facility] HealthcareEvaluation note* Diagnosis Onset Date Resolution Status Admit Date Acquired hypothyroidism acute J marlys 2024 9:36am Anxiety and depression acute Ju ly 2024 9:36am Chronic back pain acute November 9:36am Insomnia acute November 29, 2024 9:36am Sleep apnea acute November 29 9:36am [facility] Work Phone: Evaluation note* Diagnosis Bilateral lower [...] plasma protein metabolism documented in this encounter [facility] HealthcareEvaluation note* Diagnosis Bilateral lower extremity edema- Primary Pulmonary hypertension (HCC) Other chronic pulmonary heart diseases Dyspnea, unspecified type Essential hypertension Unspecified essential hypertension Medicare annual wellness visit, subsequent ACP (advance care planning) Other specified counseling Obstructive sleep apnea syndrome Obstructive sleep apnea (adult) (pediatric) Pain of upper abdomen documented in this encounter [facility] HealthcareEvaluation note* Diagnosis Bilateral lower extremity edema- Primary Hepatomegaly documented in this encounter [facility] HealthcareEvaluation note* Diagnosis Acute pain of left knee- Primary documented in this encounter [facility] HealthcareHistory general Narrative - Reported* Type Description Date Medical History Fibromyalgia Medical History arthritis in knees Medical History bursitis in hips Medical History Arthritis in lower back Medical History IBS Medical History depression Medical History anxiety Medical History Graves disease Medical History S/P Thyroidectomy Surgical History x 4 Surgical History hysterectomy Surgical History Thyroidectomy 06/2018 Hospitalization History childbirth Hospitalization History see surgery [facility] Other Hisrhtr general Narrative - Reported* Type Description Date [...] Hospitalization History childbirth Hospitalization History see surgery [facility] Other History of Present illness Narrative* Patient [...] months or earlier if the need arise -[facility] [address] DO Work Phone: History of [...] months or earlier if the need arise [facility] Work Phone: Hospital Discharge instructions Additional Instructions Follow up with your primary care doctor Continue to take your tramadol as needed for pain Return to the ED if you develop worsening symptoms or concernsKind[facility] Hospital [facility] Work Phone: Hospital Discharge instructions Additional Instructions [...] your primary care doctor and with your inbound sales consultant as planned.[facility] Work Phone: Hospital Discharge instructions Additional Instructions You can take Naprosyn and Tylenol as needed for your eye pain. Follow-up for your stress test and continue to take your antihypertensive medication as prescribed. Follow-up with your PCP for ongoing treatment of your high blood pressure. Follow-up with the eye doctor listed below regarding your left eye pain.[facility] Work Phone: Hospital Discharge instructions Additional Instructions [...] me in 6-8 weeks. Low FODMAP diet Jibe 1 p.o. every morning -Notify the doctor if you have any problems. -Office number [phone] Hospital Lima Work Phone: Reason for referral (narrative)No reason for referral information availableKindred Hospital Lima Work Phone: Chief Complaint and Reason for [...] I10 Z86 .2 December 07, 2024 9:37am Chief Complaint Admit Date r06.02 r60.0 October 09, 2024 11:11 am Abnormal cortisol levels October 25, 2024 7:52am r60.0 R06.02 November 09, 2024 8:33 am R60.0 November 21, 2024 11:2 4am E89.0 R79.89 November 27, 2024 12:54 pm Snoring November 29, 2024 9:36a m m54.November 29, 2024 10:35 am R60.0 I27.20 R06.00 R06.83 R60.1 I10 Z86 .2 December 07, 2024 9:37am G47.30 - Sleep apnea, unspecified November 282024 7:50pm Chief Complaint Admit Date r06.02 r60.0 October 09, 2024 11:11 am Abnormal cortisol levels October 25, 2024 7:52am r60.0 R06.02 November 09, 2024 8:33 am R60.0 November 21, 2024 11:2 4am E89.0 R79.89 November 27, 2024 12:54 pm Snoring November 29, 2024 9:36a m m54.30 November 29, 2024 10:35 am R60.0 I27.20 R06.00 R06.83 R60.1 I10 Z86 .2 December 07, 2024 9:37am G47.30 G47.34 December 18, 2024 7:50 pm G47.30 G47.34 December 25, 2024 12:0 0am ref by Melissa Coon for edema, venous ins ufficiency December 26, 2024 8:57am Chief Complaint Admit Date r06.02 r60.0 October 09, 2024 11:11 am Abnormal cortisol levels October 25, 2024 7:52am r60.0 R06.02 November 09, 2024 8:33 am R60.0 November 21, 2024 11:2 4am E89.0 R79.89 November 27, 2024 12:54 pm Snoring November 29, 2024 9:36a m m54.30 November 29, 2024 10:35 am R60.0 I27.20 R06.00 R06.83 R60.1 I10 Z86 .2 December 07, 2024 9:37am G47.30 G47.34 December 18, 2024 7:50 pm G47.30 G47.34 December 25, 2024 12:0 0am ref by Melissa Coon for edema, venous ins ufficiency December 26, 2024 8:57am lt knee pain January 02, 2025 11: 04am Reason for Visit Admit Date Acquired hypothyroidism November 29, 2024 9 :36am Anxiety and depression November 29, 2024 9: 36am Chronic back pain November 29, 2024 9:36a m Insomnia November 29, 2024 9:36a m Pulmonary hypertension November 29, 2024 9: 36am Sleep apnea November 29, 2024 9:36a m Sleep related hypoxia November 29, 2024 9:3 6am Leg swelling December 26, 2024 8:57 am Chief Complaint Admit Date Abnormal cortisol levels October 25, 2024 7:52am r60.0 R06.02 November 09, 2024 8:33 am R60.0 November 21, 2024 11:2 4am E89.0 R79.89 November 27, 2024 12:54 pm Snoring November 29, 2024 9:36a m m54.30 November 29, 2024 10:35 am R60.0 I27.20 R06.00 R06.83 R60.1 I10 Z86 .2 December 07, 2024 9:37am G47.30 G47.34 December 18, 2024 7:50 pm G47.30 G47.34 December 25, 2024 12:0 0am ref by Melissa Coon for edema, venous ins ufficiency December 26, 2024 8:57am lt knee pain January 02, 2025 11: 04am ER [facility] LT KNEE PAIN WX January 08 11:15am M25.562 - Pain in left knee January 08, 2025 11:18am Advance Directives No Advanced Directives Records Found [...] CT T-SPINE W/O CONTRAST Javad Leach MD [address] [place] [id number] SCAN Referral ID Status Reason Start Date Expiration Date V isits Requested Visits Authorized [id number] Authorized 09/06/2022 09/06/2023 1 1 Specialty Diagnoses / Procedures Referred By Contac t Referred To Contact Radiology Diagnoses Cervical spondylosis with myelopathy Procedures DOWNLOAD POWERSHARE IMAGES TO [facility] Javad Leach MD [address] [place] [address] [facility] [address] [place] [address] Referral ID Status Reason Start Date Expiration Date V isits Requested Visits Authorized [id number] Authorized 08/24/2022 08/24/2023 1 1 Summary Purpose Additional Source Comments Source Comments (unrecognize d section and content) In the event this informatio n is protected by the Federal Confidentiality of Alcohol and Drug Abuse Patient Records regulations: The Federal rules restrict any use of the information to criminally investigate or prosecute any alcohol or drug abuse patient.[facility] HospitalIn the event this information is protected by the Federal Confidentiality of Alcohol and Drug Abuse Patient Records regulations: The Federal rules restrict any use of the information to criminally investigate or prosecute any alcohol or drug abuse patient.[facility] REASON FOR VISIT (unrecogniz ed section and content) Reason Comments New patient, to establish relationship B ack pain Specialty Diagnoses / Procedures Referred By Contac t Referred To Contact Neurosurgery Diagnoses Protrusion of thoracic intervertebral disc Thoracic radiculitis Ernie Roper [address] [place] [address] [facility] NEUROSURGERY [address] [place] [address] Referral ID Status Reason Start Date Expiration Date V isits Requested Visits Authorized [id number] Authorized 07/22/2022 07/22/2023 3 3 Specialty Diagnoses / Procedures Referred By Contac t Referred To Contact Radiology Diagnoses Thoracic spine pain Procedures CT NEURO IMAGE IMPORT(KYLE) DOWNLOAD POWERSHARE IMAGES TO Javad Leach MD [address] [place], [place] [id number] [facility] DIAGNOSTIC RADIOLOGY [address] [place] [address] Referral ID Status Reason Start Date Expiration Date Visits Re quested Visits Authorized [id number] Closed 09/30/2022 09/30/2023 1 1 Reason Comments [...] rt lower extremity. She was advised by inbound sales consultant to stop Lasix and she was prescribed Losartan hydrochlorothiazide 100/12.5 mg every day. Bilateral edema and pain continue. SOB with exertion has worsened within the last couple days. Reason Comments Review lab Review lab drawn 03/2025 Medicare Annual Wellness Visit Marco t Reason Comments 2 Week Follow Up Bilateral extremity edema continues. Weight gain of 3.6 # since 12/13 OV. Appointment scheduled with Dr Redding 12/26/2024 Reason Comments Knee Pain Care Teams (unrecognized sec tion and content) Team Status: Inactive Member Role Status Dates Donya Billings , DO Primary Care Provider Active Bhavna Marr NP-C Attending Provider Active Team Status: Active Member Role Status Pina Billings , DO Primary Care Provider Active Team Status: Inactive Member Role Status Pina Billings , DO Primary Care Provider Active Phillip Benjamin MD Attending Provider Active Team Status: Inactive Member Role Status Dates Donya Billings , DO Primary Care Provider Active Steve Coronel , DO Emergency Provider Active Team Status: Inactive Member Role Status Pina Billings , DO Primary Care Provider Active Kenyetta Dove MD Attending Provider Active Team Status: Inactive Member Role Status Pina Billings , DO Primary Care Provider Active Javad Leach Attending Provider Active Team Status: Active Member Role Status Dates PHYSICIAN NO FAMILY Primary Care Provider Active Team Status: Inactive Member Role Status Dates Amanda Montiel MD Attending Provider Active PHYSICIAN NO FAMILY Primary Care Provider Active Team Status: Inactive Member Role Status Pina Billings , DO Primary Care Provider Active Yogi Michaels , DO Emergency Provider Active Team Status: Inactive Member Role Status Dates PHYSICIAN NO FAMILY Primary Care Provider Active Josué J Napier , PA-C Emergency Provider Active Team Status: Active Member Role Status Dates Melissa Hugo Singh II, DO Primary Care Provider Active Team Status: Inactive Member Role Status Dates Melissa Singh II, DO Primary Care Provider Active Mariya Kumari , DO Emergency Provider Active Team Status: Inactive Member Role Status Dates Melissa iSngh II, DO Primary Care Provider Active Franklyn [...] Other P rovider Active Radha Mcintosh , EMERGENCY MEDICINE PHYSICIAN ASSISTANT-C Attending Provider Active Team Status: Inactive Member Role Status Dates Melissa Singh II, DO Primary Care Provider Active Beny Hoskins MD Attending Provider Active Zoya Aguirre APRN EMERGENCY MEDICINE PHYSICIAN ASSISTANT-C Other Provider Act cecelia Website Project Manager Relationship Specialty Start Date End Date Donya Billings, DO Referring Family Medicine 11/22/22 Team Status: Inactive Member Role Status Dates Melissa Arias Samantha II, DO Primary Care Provider Active Start: July 22, 2023 End: July 22, 2023 Jorge Jarrett , DO Emergency Provider Active St art: [...] 2023 End: August 16, 2023 Brielle Dominguez EMERGENCY MEDICINE PHYSICIAN ASSISTANT-C Attending Provider Active St art: August 16, [...] 2024 End: February 01, 2024 Dalia Dennis NP-Kaiden Attending Provider Active S tart: February 01, 2024 End: February 01, 2024 Team Status: Inactive Member Role Status Dates Melissa Coon MD Primary Care Provider Active St art: February 21, 2024 End: February 21, 2024 Kenyetta Dove MD Attending Provider Active Sta rt: February 21, 2024 End: February 21, 2024 Website Project Manager Relationship Specialty Start Date End Date Melissa Coon MD [address] [place] [address] PCP - General Internal Medicine 01/24/24 Website Project Manager Relationship Specialty Start Date End Date Melissa Coon MD [address] [place] [address] PCP - General Internal Medicine 01/24/24 Website Project Manager Relationship Specialty Start Date End Date Melissa Coon MD [address] [place] [address] PCP - General Internal Medicine 01/24/24 Website Project Manager Relationship Specialty Start Date End Date Melissa Coon MD [address] [place] [address] PCP - General Internal Medicine 01/24/24 Website Project Manager Relationship Specialty Start Date End Date Melissa Coon MD [address] [place] [address] PCP - General Internal Medicine 01/24/24 Website Project Manager Relationship Specialty Start Date End Date Melissa Coon MD [address] [place] [address] PCP - General Internal Medicine 01/24/24 Website Project Manager Relationship Specialty Start Date End Date Melissa Coon MD [address] [place] [address] PCP - General Internal Medicine 01/24/24 Team [...] Active St art: July 14, 2024 Swapnil Ball , DO Attending Provider Active Sta rt: July 14, 2024 Team Status: Inactive Member Role Status Dates Melissa Coon MD Primary Care Provide r, Attending [...] August 29, 2024 End: August 29, 2024 Website Project Manager Relationship Specialty Start Date End Date Melissa Coon MD [address] [place] [address] PCP - General Internal Medicine 01/24/24 Kenyetta Dove MD [address] [place] [phone] Referring Physician Endocrinology 08/01/24 Donya Ozuna MD [address] [place] [address] Referring Physician Urology 08/01/24 Amanda Montiel MD [address] [place] [phone] Obstetrics and Gynecology 08/01/24 Krish Hodge MD [address] [place] [phone] Referring Physician Ophthalmology 08/01/24 Beny Hoskins MD [address] [place] [address] [address] [place] [address] Referring Physician Gastroenterology 08/01/24 [facility] 08/01/24 Team Status: Active Member Role Status Dates Melissa Coon MD Primary Care Provider Active St art: September 03, 2024 Chaz Carrillo DO Attending Provider Active St art: September 03, 2024 Team Status: Inactive Member Role Status Dates Melissa Coon MD Primary Care Provider Active St art: October 09, 2024 End: October 09, 2024 Tanner Menendez PA-C Attending Provider Active Start: October 09, 2024 End: October 09, 2024 Website Project Manager Relationship Specialty Start Date End Date Melissa Coon MD [address] [place] [address] PCP - General Internal Medicine 01/24/24 Kenyetta Dove MD [address] [place] [address] Referring Physician Endocrinology 08/01/24 Donya Ozuna MD [address] [facility] [place] [address] Referring Physician Urology 08/01/24 Amanda Montiel MD [address] [facility] [address] [place] [address] Obstetrics and Gynecology 08/01/24 Krish Hodge MD [address] [place] [address] Referring Physician Ophthalmology 08/01/24 Beny Hoskins MD [address] [place] [address] [address] [place] [address] Referring Physician Gastroenterology 08/01/24 [facility] 08/01/24 Team Status: Inactive Member Role Status Dates Melissa Coon MD Primary Care Provider Active St art: October 25, 2024 End: October 25, 2024 Kenyetta Dove MD Attending Provider, Referring Provider Active Start: October 25, 2024 End: October 25, 2024 Website Project Manager Relationship Specialty Start Date End Melissa Coon MD [address] [facility] [address] [place] [address] PCP - General Internal Medicine 01/24/24 Kenyetta Dove MD [address] [place] [address] Referring Physician Endocrinology 08/01/24 Donya Ozuna MD [address] [place] [address] Referring Physician Urology 08/01/24 [facility]iel MD [address] [facility] [address] [place] [address] Obstetrics and Gynecology 08/01/24 Krish Hodge MD [address] [place] [address] Referring Physician Ophthalmology 08/01/24 Beny Hoskins MD [address] [place] [address] [address] [place] [address] Referring Physician Gastroenterology 08/01/24 [facility] 08/01/24 Team Status: Inactive [...] November 21, 2024 End: November 21, 2024 MARCELLUS Elizondo Attending Provider Active S tart: November 21, [...] November 29, 2024 End: November 29, 2024 MARCELLUS Elizondo Attending Provider Active S tart: November 29, 2024 End: November 29, 2024 Website Project Manager Relationship Specialty Start Date End Date Melissa Coon MD [address] [place] [address] PCP - General Internal Medicine 01/24/24 Kenyetta Dove MD [address] [place] [address] Referring Physician Endocrinology 08/01/24 Donya Ozuna MD [address] [place] [address] Referring Physician Urology 08/01/24 Amanda Montiel MD [address] [place] [address] Obstetrics and Gynecology 08/01/24 Krish Hodge MD [address] [facility] [place] [address] Referring Physician Ophthalmology 08/01/24 Beny Hoskins MD [address] [place] [address] [address] [place] [address] Referring Physician Gastroenterology 08/01/24 [facility] 08/01/24 Website Project Manager Relationship Specialty Start Date End Date Melissa Coon MD [address] [place] [address] PCP - General Internal Medicine 01/24/24 Kenyetta Dove MD [address] [place] [address] Referring Physician Endocrinology 08/01/24 Donya Ozuna MD [address] [place] [address] Referring Physician Urology 08/01/24 Amanda Montiel MD [address] [place] [address] Obstetrics and Gynecology 08/01/24 Krish Hodge MD [address] [place] [address] Referring Physician Ophthalmology 08/01/24 Beny Hoskins MD [address] [facility] [address] [place] [address] Referring Physician Gastroenterology 08/01/24 [facility] 08/01/24 Website Project Manager Relationship Specialty Start Date End Date Melissa Coon MD [address] [place] [address] PCP - General Internal Medicine 01/24/24 Kenyetta Dove MD [address] [place] [address] Referring Physician Endocrinology 08/01/24 Donya Ozuna MD [address] [place] [address] Referring Physician Urology 08/01/24 Amanda Montiel MD [address] [place] [address] Obstetrics and Gynecology 08/01/24 Krish Hodge MD [address] [place] [address] Referring Physician Ophthalmology 08/01/24 Beny Hoskins MD [address] [place] [address] [address] [place] [address] Referring Physician Gastroenterology 08/01/24 [facility] 08/01/24 Team Status: Inactive Member Role Status Dates Melissa Coon MD Primary Care Provider Active St art: December 07, 2024 End: December 07, 2024 Omid Quan , RN MSN ANP-C Attending Provider Act cecelia Start: December 07, 2024 End: December 07, 2024 Team Status: Inactive Member Role Status Dates Melissa Coon MD Primary Care Provider Active St art: December 18, 2024 End: December 18, 2024 Robbie Dale MD Attending Provider Active S tart: December 18, 2024 End: December 18, 2024 Website Project Manager Relationship Specialty Start Date End Date Melissa Coon MD [address] [facility] [address] [place] [address] PCP - General Internal Medicine 01/24/24 Kenyetta Dove MD [address] [facility] [place] [address] Referring Physician Endocrinology 08/01/24 Donya Ozuna MD [address] [facility] [place] [address] Referring Physician Urology 08/01/24 Amanda Montiel MD [address] [facility] [address] [place] [address] Obstetrics and Gynecology 08/01/24 Krish Hodge MD [address] [place] [address] Referring Physician Ophthalmology 08/01/24 Beny Hoskins MD [address] [place] [address] [address] [place] [address] Referring Physician Gastroenterology 08/01/24 [facility] 08/01/24 Team Status: Inactive Member Role Status Dates Melissa Coon MD Primary Care Provider Active St art: December 18, 2024 End: December 18, 2024 Robbie Dale MD Attending Provider Active S tart: December 18, 2024 End: December 18, 2024 Dalia Dennis NP-C Referring Provider Active S tart: December 18, 2024 End: December 18, 2024 Team Status: Active Member Role Status Dates Melissa Coon MD Primary Care Provider Active St art: December 25, 2024 Robbie Dale MD Attending Provider Active S tart: December 25, 2024 Robbie Dale MD Other Provider Active Start : December 25, 2024 Dalia Dennis NP-C Referring Provider Active S tart: December 25, 2024 Team Status: Inactive Member Role Status Dates Melissa Coon MD Primary Care Provider Active St art: December 26, 2024 End: December 26, 2024 Yogi Redding MD Attending Provider Active Start: December 26, 2024 End: December 26, 2024 Team Status: Inactive Member Role Status Dates Melissa Coon MD Primary Care Provider Active St art: January 02, 2025 End: January 02, 2025 Javad Lozoya APRN Emergency Provider Active Start: January 02, 2025 End: January 02, 2025 Team Status: Inactive Member Role Status Dates Melissa Coon MD Primary Care Provider Active St art: January 08, 2025 End: January 08, 2025 Melissa Benz II, MD Attending Provider Active Start: January 08, 2025 End: January 08, 2025 Website Project Manager Relationship Specialty Start Date End Melissa Coon MD [address] [place] [address] PCP - General Internal Medicine 01/24/24 Kenyetta Dove MD [address] [place] [address] Referring Physician Endocrinology 08/01/24 oDnya Ozuna MD [address] [address] Referring Physician Urology 08/01/24 Amanda Montiel MD [address] [place] [address] Obstetrics and Gynecology 08/01/24 Krish Hodge MD [address] [place] [address] Referring Physician Ophthalmology 08/01/24 Beny Hoskins MD [address] [place] [address] [address] [place] [address] Referring Physician Gastroenterology 08/01/24 [facility] 08/01/24 Goals (unrecognized section and content) Goals may be documented in a n alternate section INFORMATION SOURCE (unrecogn ized section and content) DATE CREATED AUTHOR 10/04/2022 [facility] DATE CREATED AUTHOR AUTHOR'S ORGANIZ ATION 10/11/2022 [facility] DATE CREATED AUTHOR AUTHOR'S ORGANIZ ATION 11/27/2022 [facility] DATE CREATED AUTHOR AUTHOR'S ORGANIZ ATION 12/09/2022 [facility] DATE CREATED AUTHOR AUTHOR'S ORGANIZ ATION 12/09/2022 [employer] DATE CREATED AUTHOR AUTHOR'S ORGANIZ ATION 07/10/2023 [facility] DATE CREATED AUTHOR AUTHOR'S ORGANIZ ATION 01/09/2025 [facility] DATE CREATED AUTHOR AUTHOR'S ORGANIZ ATION 01/10/2025 [facility] DATE CREATED AUTHOR AUTHOR'S ORGANIZ ATION 01/13/2025 [facility] DATE CREATED AUTHOR AUTHOR'S ORGANIZ ATION 01/13/2025 [facility] EPIC FOR RECORDS PERTAINING TO PATIENTS WHO ARE [...] BE BASED ON THE PRIMARY CLINICAL RECORDS. [facility] [employer] [facility]. provides no warranty or guarantee of the accuracy or completeness of information in this document.
== END 2025-01-14 14:43 | disposition home or self-care (01) ==
LOC: PM 14:43
PROVIDERS: Visit Provider Anesthesiology
DX: M25.511 Pain in right shoulder (principal); G89.29 Other chronic pain
CPT/HCPCS: 20610; J0665; J3301

== ENCOUNTER 2025-02-06 11:26 | Outpatient (OUT) | payer MEDICARE, SELFPAY ==
--- OUTSIDE RECORDS SUMMARY | 2018-01-25 09:00 | XMS_ITS | Continuity of Care Document ---
Author Organization [facility] Address [address] [place] [address] Phone Care Team Providers Care Television News Reporter Name Role Phone Antoine Leonard DMD Unavailab [...] Diagnoses Date Provider Providers Copied on Encounter [facility], [address] [place] [address], [place], [place], [address] , [place] tel:[phone] Dental Clinic prophy (chief complaint) Encounter for screening for dental disorders 8 Demetrice [facility]. [address] [facility], [place], [address], [place]. tel:[phone] [facility], [address] [facility], [place], [place], [address] , [place] tel:[phone] Dental Clinic prophy (chief complaint) Encounter for screening for dental disorders 7 Preet Merchantbo. [address] [facility], [place], [address], [place]. tel:[phone] [facility], [address] [facility], [facility] [place], [address] , [place] tel:[phone] Dental Clinic extraction (chief complaint) Encounter for screening for dental disorders 7 Declan Andriy Snell. [address] [facility], [place], [address], [place]. tel:[phone] [facility], [address] [place], [place], [address] , [place] tel:[phone] Dental Clinic dental limited (chief complaint) Encounter for screening for dental disorders 7 Preet Moreno. [address] [facility], [place], [address], [place]. tel:[phone] [facility], [address] [facility], [facility] [place], [address] , [place] tel:[phone] Dental Clinic Encounter for screening for dental disorders 6 [facility] August. [address] [facility], [address], [place]. tel:[phone] [facility], [address] [facility] [place], [address] , [place] tel:[phone] Dental Clinic prophy (chief complaint) Encounter for screening for dental disorders 6 [facility] August. [address] [facility], [place], [place], [address], [place]. tel:[phone] [facility], [address] [place], [place], [address] , [place] tel:[phone] Dental Clinic Encounter for screening for dental disorders 6 Beau DMD Nanette. [address] [place], [place], [address], [place]. tel:[phone] OFFICE/OUTPA TIENT VISIT, EST [facility], [address] [place], [place], [address] , [place] tel: [phone] [facility] repeat pap (chief complaint) Papanicolaou smear of cervix with atypical squamous cells of undetermined significance (ASC-US) 4 [facility] Evelyn. [address] [place], [place], [address], [place]. tel:[phone] PREV VISIT, EST, AGE 12-17 [facility], [address] [place], [place], [address] , [place] tel: [phone] [facility] annual visit (chief complaint) Gynecological ExaminationMam venecia, Screening 3 Jer Cleveland. [address] [place], [place], [address], [place]. tel:[phone] OFFICE/OUTPA TIENT VISIT, EST [facility], [address] [place], [place], [address] , [place] tel: [phone] [facility] No Information 2 Lamp Megha. [address] [place], [place], [address], [place]. tel:[phone] [facility], [address] [place], [place], [address] , [place] tel: [phone] [facility] No Information 2 Visci DO Gadiel. [address] [place], [place], [address], [place]. tel:[phone] [facility], [address] [place], [place], [address] , [place] tel: [phone] [facility] No Information 2 Lamp Megha. [address] [place], [place], [address], [place]. tel:[phone] [facility], [address] [place], [place], [address] , [place] tel: [phone] [facility] No Information 2- 0 Jer Cleveland. [address] [place], [place], [address], [place]. tel:[phone] OFFICE/OUTPA TIENT VISIT, [facility], [address] [place], [place], [address] , [place] tel: [phone] [facility] No Information 9 Milton ROSARIOLoren Arriola. [address] [place], [place], [address]. tel:[phone] OFFICE/OUTPA TIENT VISIT, [facility], [address] [place], [place], [address] , [place] tel: [phone] [facility] No Information 9 No Information OFFICE/OUTPA TIENT VISIT, [facility], [address] [place], [place], [address] , [place] tel: [phone] [facility] No Information 9 Tere Sloan. [address] [place], [place], [address], [place]. tel:[phone] OFFICE/OUTPA TIENT VISIT, [facility], [address] [place], [place], [address] , [place] tel: [phone] [facility] No Information 9 Tere Sloan. [address] [place], [place], [address], [place]. tel:[phone] PREV VISIT, EST, AGE 18-39 [facility], [address] [place], [place], [address] , [place] tel: [phone] [facility] No Information 0 6200 9 Donavon Avina. [address] [place], [place], [address]. tel:[phone] OFFICE/OUTPA TIENT VISIT, EST [facility], [address] [place], [place], [address] , [place] tel:[phone] [facility] No Information 8 Tere Sloan. [address] [place], [place], [address], [place]. tel:[phone] Family History Family Member Type Diagnosis [...] Caffeine Use Details soda Occasional per day 2017 Tobacco Use Status Light cigarette smoker (1-9 cigs/day) Smoking Status Light tobacco smoker Smoking Tobacco Use Details Cigarette: Age Started: 17 Cigarette: 5 Packs per day Sex Female Sexual Orientation Lesbian, ngo or homosexual Gender Identity Female Vital Signs Date / Time: Height Weight [...] Status Goal Tdap. Due on due Goal Influenza vaccine. Due on due Goal RLP. Due on due Goal Depression screening. Due on due Goal RLP. Due on due Goal Influenza vaccine. Due on due Goal Tdap. Due on due Goal Depression screening. Due on due Goal H&P. Due on due Goal Tdap. Due on due Goal H&P. Due on due Goal Td vaccine. Due on 17 due Goal Depression screening. Due on due Goal Influenza vaccine. Due on due Goal Tdap. Due on due Goal Depression screening. Due on due Goal Td vaccine. Due on 17 due Goal H&P. Due on due Goal Influenza vaccine. Due on due Goal Depression screening. Due on due Goal Tdap. Due on due Goal H&P. Due on due Goal Td vaccine. Due on 16 due Goal Td vaccine. Due on 16 due Goal H&P. Due on due Goal Depression screening. Due on due Goal Tdap. Due on due Goal Td vaccine. Due on 16 due Goal Tdap. Due on due Goal H&P. Due on due Goal Depression screening. Due on due Goal H&P. Due on due Goal PAP. Due on due Goal Mammogram. Due on 3 due History Of Present Illness Encounter Date [...]
--- OUTSIDE RECORDS SUMMARY | 2024-09-28 06:30 | XMS_ITS ---
Author Organization [facility] Address [address] [place] [address] Care Team Providers Care Irrigation Equipment Mechanic Name Role Phone Radha Mcintosh Primary Care Provider [phone] Gissell Kaufman Unavailable [phone] Dr. Bob Ureña Unavailable [phone] REASON FOR VISIT fill Encounters Encounter Location Date Provider Diagnosis [facility] [address] [place] [address] 09/28/2024 Bob Ureña Plan Of Treatment Next Appt Details Provider Name:Bob Ureña, 0 02/21/2025 10:35:00 AM, [address] [place], [address], Provider Name:Gissell Mandeep , 07/04/2025 02:20:00 PM, [address], [address], Progress Notes * CATARINOGEOVANNAMERARYB:1975 ([age] yo F)Acc No.[id number]:09/28/2024 Patient: EMILY MCINTOSH Provider: Hugo Ureña DDS :1975 A ge:49 Y S ex:Female Date:09/28/2024 Address:[address], [place], [id number] Pcp:Radha Mcintosh Subjective: * Chief Complaints: * 1 . Fill. * Medical History: Objective: * Vitals: Assessment: Plan: * Treatment: * Images: * Electronic signature of Dr. Bob Ureña , DMD on 02/06/2025 at 11:29 AM EDT Sign off status: Pending * Provider: Hugo Ureña DDS Date: 0 09/28/2024 Generated for Joshua saunders/Debora/Yo on: 0 02/06/2025 11:29 AM EDT
--- OUTSIDE RECORDS SUMMARY | 2024-10-08 10:45 | XMS_ITS ---
Author Organization [facility] Servic es Address [address] [place] [address] Care Team Providers Care Lead Radiologic Technologist Name Role Phone Radha Mcintosh Primary Care Provider [phone] Mandeep Gissell Unavailable [phone] REASON FOR VISIT 3 month f/u Encounters Encounter Location Date Provider Diagnosis [facility] [address] [place] [address] 10/08/2024 Radha Mcintosh Plan Of Treatment Next Appt Details Provider Name:Bob Ureña, 0 02/21/2025 10:35:00 AM, [address] [place], [address], Provider Name:Gissell Mandeep , 07/04/2025 02:20:00 PM, [address], [place], [address], Progress Notes * HERNAN TORIBIOB:1975 ([age] yo F)Acc No.[id number]:10/08/2024 Behavioral Health Patient: Brent EMILY RIVERA Appointment Provider: Kaiden Mcintosh :1975 A ge:49 Y S ex:Female Date:10/08/2024 Address:[address], [place], [id number] Subjective: * Chief Complaints: * 1 . 3 month f/u. * Medical History: Objective: * Vitals: Assessment: Plan: * Treatment: * Images: * Electronic signature of MARIBEL Mckinney on 02/06/2025 at 11:29 AM EDT Sign off status: Pending * Appointment Provider: Kaiden Mcintosh Date: 0 10/08/2024 Generated for Joshua saunders/Debora/Yo on: 0 02/06/2025 11:29 AM EDT
--- OUTSIDE RECORDS SUMMARY | 2025-01-29 15:15 | XMS_ITS | Encounter Summary ---
Author Organization [facility] Address [address] [place] [address] Care Team Providers Care Wireless Retail Manager Name Role Phone Diony Sharma MD Primary Care Provider [phone] Kenyetta Dove MD Unavailable [phone] Simón Ozuna MD Unavailable [phone] Amanda Montiel MD Unavailable [phone] Krish Hodge MD Unavailable [phone] Beny Hoskins MD Unavailable [phone] Reason for Visit * Reason Comments Vaginitis/Bacterial Vaginosis Encounter Details Date Type Department Care Team (Latest Contact Info) Description 01/29/2025 3:15 PM EDT Office Visit CINDYAndriy James MARTY [address] [facility] [address] [place] [id number] Amanda Montiel MD [address] [facility] [address] [place] [address] Encounter for gynecological examination without abnormal finding (Primary Dx); Vaginitis and vulvovaginitis; Cervicitis and endocervicitis; Acute vaginitis; Bacterial vaginitis; Vaginal odor; Vaginal discharge; Vaginal irritation; Encounter for screening for cervical cancer; Hormone imbalance Social History Tobacco Use Types Packs/Day Years Used Date Smoking Tobacco: Every Day Cigarettes Smokeless Tobacco: Never Tobacco Cessation:Ready to Q uit: Not Asked; Counseling Given: Not Answered Comments:Pt smoked 1/2 ppd since age 17 years old. Alcohol Use Standard Drinks/Week Comments [...] Sign Reading Time Taken Comments Blood Pressure 124/80 01/29/2025 3:19 PM EDT Pulse - - Temperature - - Respiratory Rate - - Oxygen Saturation - - Inhaled Oxygen Concentration - - Weight 149 kg (328 lb) 01/29/2025 3:19 PM EDT Height 170.2 cm (5' 7 ) 01/29/2025 3:19 PM EDT Body Mass Index 51.37 01/29/2025 3:19 PM EDT documented in this encounter Progress Notes * Amanda Montiel MD - 01/29/2025 3:15 PM EDT Images from the original note were not included. Amanda Montiel MD Obstetrics and Gynecology Patient: Lupe Pickard : 1975 (49 y.o.) Exam Date: 01/29/2025 Reason for Visit - Chief Complaint Patient presents with Vaginitis/Bacterial Vaginosis Patient believes she is experiencing bacterial vaginosis due to having vaginal discharge and odor History of Present Illness History of Present Illness Lupe, a patient with a history of bacterial vaginosis (BV) and hysterectomy, presents with concernsof fishy odor and pelvic pain. She reports experiencing a fishy smell The patient attempted self-treatment with Metrogel, which she had at home from previous BV episodes, but it did not alleviate her symptoms. She applied the Metrogel last week. In addition to the persistent odor, Lupe is experiencing pelvic pain. She also mentions having hot flashes, though the frequency and severity are not specified. Lupe has one remaining ovary following her hysterectomy. She expresses interest in having her hormone levels checked, as she hasn't had them evaluated recently and is concerned about the possibility of menopause. Visit Vitals BP 124/80 (BP Location: Left arm) Ht 5' 7 Wt 328 lb BMI 51.37 kg/m?? Smoking Status Every Day BSA 2.65 m?? History of Present Illness, Associated Treatments and Results - OB History Para Term AB Living 4 0 0 0 0 0 SAB IAB Ectopic Multiple Live Births 0 0 0 0 4 # Outcome Date GA Lbr Win/2nd Weight Sex Type Anes PTL Lv 4 3 2 1 Constitutional: Negative. HENT: Negative. Eyes: Negative. Respiratory: Negative. Cardiovascular: Negative. Gastrointestinal: Negative. Endocrine: Negative. Genitourinary: Negative. Musculoskeletal: Negative. Skin: Negative. Allergic/Immunologic: Negative. Neurological: Negative. Hematological: Negative. Psychiatric/Behavioral: Negative. No Known Allergies Current Outpatient Medications: B Kdznzgl-Omoevl-JH (Super Quints B-50) tablet, Take by mouth, Disp: , Rfl: cholecalciferol (Vitamin D-3) 50 MCG (2000 UT) capsule, Take 1 capsule (50 mcg) by mouth in the morning., Disp: 30 capsule, Rfl: 11 clindamycin (Cleocin) 2 % vaginal cream, Insert 1 applicator into the vagina at bedtime for 7 days,Disp: 40 g, Rfl: 0 COLLAGEN PO, Take by mouth, Disp: , Rfl: escitalopram (Lexapro) 20 MG tablet, Take 20 mg by mouth Daily, Disp: , Rfl: ferrous sulfate 325 (65 Fe) MG tablet, Take 325 mg by mouth in the morning. Take with meals., Disp:, Rfl: HYDROcodone-acetaminophen ([place]) 5-325 MG tablet, Take 1-2 tablets by mouth every 6 (six) hours ifneeded for severe pain, Disp: 42 tablet, Rfl: 0 levothyroxine (Synthroid, Levoxyl) 125 MCG tablet, Take 1 tablet (125 mcg) by mouth Daily, Disp: 90tablet, Rfl: 3 liothyronine (Cytomel) 5 MCG tablet, TAKE 1 TABLET BY MOUTH 2 TIMES A DAY, Disp: 180 tablet, Rfl: 1 losartan-hydroCHLOROthiazide (Hyzaar) 100-12.5 MG tablet, Take 1 tablet by mouth Daily, Disp: , Rfl: lubiprostone (Amitiza) 24 MCG capsule, Take 24 mcg by mouth Daily as needed, Disp: , Rfl: magnesium oxide (Mag-Ox) 400 MG tablet, Take 400 mg by mouth in the morning and 400 mg in the evening., Disp: , Rfl: melatonin 10 MG tablet, Take by mouth, Disp: , Rfl: metroNIDAZOLE (Metrogel) 0.75 % gel, Apply twice daily to rosacea for 8 weeks., Disp: 45 g, Rfl: 0 Multiple Vitamin (Multi Vitamin Daily) tablet, Take by mouth, Disp: , Rfl: nystatin (Mycostatin) ointment, Apply thin film BID prn irritation, Disp: 30 g, Rfl: 1 Probiotic Product (PRO-BIOTIC BLEND PO), Take by mouth, Disp: , Rfl: propranolol (Inderal) 20 MG tablet, Take 20 mg by mouth in the morning and 20 mg before bedtime., Disp: , Rfl: Turmeric (QC TUMERIC COMPLEX PO), Take by mouth, Disp: , Rfl: Past Medical History: Diagnosis Date Acquired absence of uterus with remaining cervical stump Anxiety Bladder disorder Chronic fatigue Depression Fibromyalgia SANDRA (generalized anxiety disorder) Graves disease Hypertension Hypothyroidism (acquired) Irritable bowel syndrome with constipation 01/24/2024 Lyme disease Mixed stress and urge urinary incontinence Morbid obesity with BMI of 40.0-44.9, adult ([facility]) Nonscarring hair loss, unspecified Postprocedural hypothyroidism Primary osteoarthritis involving multiple joints 01/24/2024 Urinary retention Vitamin D deficiency 01/24/2024 Past Surgical History: Procedure Laterality Date BREAST BIOPSY Left SECTION, LOW TRANSVERSE 1992, 1993, 2002, 2006 HYSTERECTOMY all except 1 ovary THYROIDECTOMY Family History Problem Relation Name Age of Onset Diabetes type II Mother Hypertension Mother Depression Mother Heart disease Brother x 3 Lymphoma Maternal Grandmother Breast cancer Paternal Grandmother Mental illness Son x 2 Social History Tobacco Use Smoking Status Every Day Types: Cigarettes Smokeless Tobacco Never Tobacco Comments Pt smoked 1/2 ppd since age 17 years old. Physical Exam - General appearance, mentation, extraocular movements, facial strength and movement, hearing, upper and lower extremity strength and tone, sensation to gross testing, coordination, and gait are normalor at baseline unless noted below. Physical Exam Constitutional: Appearance: Normal appearance. Genitourinary: Right Labia: No rash or lesions. Left Labia: No lesions or rash. No vaginal discharge or erythema. No vaginal prolapse present. No vaginal atrophy present. Right Adnexa: not tender and no mass present. Left Adnexa: not tender and no mass present. No cervical lesion. Uterus is not tender. Uterus is anteverted. Breasts: Right: Normal. No mass or nipple discharge. Left: Normal. No mass or nipple discharge. HENT: Head: Normocephalic and atraumatic. Cardiovascular: Rate and Rhythm: Normal rate and regular rhythm. Pulmonary: Breath sounds: Normal breath sounds. Abdominal: General: There is no distension. Palpations: Abdomen is soft. There is no mass. Tenderness: There is no abdominal tenderness. Musculoskeletal: General: Normal range of motion. Cervical back: Neck supple. Lymphadenopathy: Cervical: No cervical adenopathy. Neurological: Mental Status: She is alert and oriented to person, place, and time. Skin: General: Skin is warm and dry. Psychiatric: Mood and Affect: Mood normal. Assessment/Plan ICD-10-CM 1. Encounter for gynecological examination without abnormal finding Z01.419 IGP, APT HPV,RFX 16/18,45 2. Vaginitis and vulvovaginitis N76.0 NuSwab Vaginitis Plus (VG+) GENITAL MYCOPLASMAS CESAR, SWAB clindamycin (Cleocin) 2 % vaginal cream 3. Cervicitis and endocervicitis N72 NuSwab Vaginitis Plus (VG+) GENITAL MYCOPLASMAS CESAR, SWAB clindamycin (Cleocin) 2 % vaginal cream 4. Acute vaginitis N76.0 NuSwab Vaginitis Plus (VG+) GENITAL MYCOPLASMAS CESAR, SWAB clindamycin (Cleocin) 2 % vaginal cream 5. Bacterial vaginitis N76.0 NuSwab Vaginitis Plus (VG+) B96.89 GENITAL MYCOPLASMAS CESAR, SWAB clindamycin (Cleocin) 2 % vaginal cream 6. Vaginal odor N89.8 NuSwab Vaginitis Plus (VG+) GENITAL MYCOPLASMAS CESAR, SWAB 7. Vaginal discharge N89.8 NuSwab Vaginitis Plus (VG+) GENITAL MYCOPLASMAS CESAR, SWAB 8. Vaginal irritation N89.8 NuSwab Vaginitis Plus (VG+) GENITAL MYCOPLASMAS CESAR, SWAB 9. Encounter for screening for cervical cancer Z12.4 IGP, APT HPV,RFX 16/18,45 10. Hormone imbalance E34.9 TSH Follicle stimulating hormone T4, free T3, free T3 Testosterone, free, total Progesterone Luteinizing hormone Estradiol Insulin, fasting Hemoglobin A1c T3, free T3 Insulin, fasting Pap and exam performed. Mammogram ordered Results can be found in MyChart in 7 days Return 1 year for annual Suspected Recurrent Bacterial Vaginosis (BV) with Pelvic Pain Assessment: Patient reports a fishy odor after eating seafood for the past month, which has now become constant. She self-treated with Metrogel (not ) last week due to her history of BV, but symptoms persist. Additionally, she is experiencing pelvic pain. Given the ineffectiveness of self-treatment and the presence of pelvic pain, further evaluation is necessary. Differential diagnoses include recurrent BV, ureaplasma infection, or other pelvic pathology. Plan: - Obtain vaginal cultures to rule out BV and test for ureaplasma - Schedule pelvic ultrasound to evaluate pelvic pain and assess remaining ovary - Await culture results before initiating further treatment - Follow up with patient in 2 weeks to discuss results and treatment plan Possible Perimenopause Assessment: Patient reports experiencing hot flashes, which, combined with her history of hysterectomy and retention of one ovary, suggests possible perimenopause. Hormone level assessment is warranted to confirm menopausal status. Plan: - Order hormone panel to assess menopausal status - Patient to complete lab work today - Discuss results and potential management options at follow-up appointment Assessment & Plan documented in this encounter Plan of Treatment Upcoming Encounters Date Type Department Care Team (Late st Contact Info) Description 02/12/2025 11:10 AM EDT Office Visit [facility] [address] [place] [phone] Kenyetta Dove MD [address] [place] [address] 02/12/2025 2:00 PM EDT Ancillary Procedure NOMAndriy FERGUS[facility] [address] [place] [phone] 02/12/2025 2:45 PM EDT Office Visit NOMAndriy FERGUSON [address] [place] [phone] Amanda Montiel MD [address] [facility] [address] [facility] [address] [place] [address] Scheduled Orders Name Type Priority Associated Diagnoses Orde r Schedule TSH Lab Routine Hormone imbalance Ordered: 01/29/2025 Follicle stimulating hormone Lab Routine Hormone imbalance Ordered: 01/29/2025 T4, free Lab Routine Hormone imbalance Ordered: 01/29/2025 T3, free Lab Routine Hormone imbalance Expected: 01/29/2025 (Approximate), Expires: 01/29/2026 T3 Lab Routine Hormone imbalance Expected: 01/29/2025 (Approximate), Expires: 01/29/2026 Testosterone, free, total Lab Routine Hormone imbalance Ordered: 01/29/2025 Progesterone Lab Routine Hormone imbalance Ordered: 01/29/2025 Luteinizing hormone Lab Routine Hormone imbalance Ordered: 01/29/2025 Estradiol Lab Routine Hormone imbalance Ordered: 01/29/2025 Insulin, fasting Lab Routine Hormone imbalance Expected: 01/29/2025 (Approximate), Expires: 01/29/2026 Hemoglobin A1c Lab Routine Hormone imbalance Ordered: 01/29/2025 documented as of this encounter Procedures Procedure Name Priority Date/Time Associated Diagnosis Comments GENITAL MYCOPLASMAS CESAR, SWAB Routine 01/29/2025 12:00 AM EDT Vaginitis and vulvovaginitis Cervicitis and endocervicitis Acute vaginitis Bacterial vaginitis Vaginal odor Vaginal discharge Vaginal irritation IGP, APT HPV,RFX 16/18,45 Routine 01/29/2025 12:00 AM EDT Encounter for gynecological examination without abnormal finding Encounter for screening for cervical cancer NUSWAB VAGINITIS PLUS (VG+) Routine 01/29/2025 12:00 AM EDT Vaginitis and vulvovaginitis Cervicitis and endocervicitis Acute vaginitis Bacterial vaginitis Vaginal odor Vaginal discharge Vaginal irritation documented in this encounter Results * IGP, APT HPV,RFX 16/18,45 (01/29/2025 12:00 AM EDT) Diagnosis: Comment [facility] Comment:NEGATIVE FOR INTRAEP ITHELIAL LESION OR MALIGNANCY. Specimen Adequacy: Comment [facility] Comment:Satisfactory for chance luation. No endocervical component is identified. Clinician Provided ICD10: Comment [facility] Comment: Z01.419 Z12.4 Performed By: Comment [facility] Comment:Keisha Olivo, Cytol ogist (ASCP) Cyto Comments . [facility] Note: Comment [facility] Comment: The Pap smear is a screening test designed to aid in the detection of premalignant and malignant conditions of the uterine cervix. It is not a diagnostic procedure and should not be used as the sole means of detecting cervical cancer. Both false-positive and false-negative reports do occur. Test Methodology: Comment [facility] Comment: This liquid based ThinPrep(R) pap test was screened with the use of an image guided system. HPV Aptima Negative Negative [facility] Comment: This nucleic acid amplification test detects fourteen high-risk HPV types (16,18,31,33,35,39,45,51,52,56,58,59,66,68) without differentiation. Vaginal Fluid 01/29/2025 01/30/2025 Narrative [facility] - 01/31/2025 5:07 PM EDT Performed at: - [address] [id number] Art History Professor: Laila Connelly MD, Phone: [phone] Performed at: - [address] [id number] Art History Professor: Laila Connelly MD, Phone: [phone] Specimen Comment: No. of containers..01 ThinPrep Vial us Amanda Montiel MD LAB BLOOD ORDERABLES Final Res ult [facility] * GENITAL MYCOPLASMAS CESAR, SWAB (01/29/2025 12:00 AM EDT) MYCOPLASMA GENITALIUM Negative Negative [facility] MYCOPLASMA HOMINIS Negative Negative [facility] UREAPLASMA SPP Negative Negative [facility] Vaginal Fluid 01/29/2025 01/29/2025 Narrative [facility] - 02/01/2025 3:07 PM EDT Test(s) 550151-Tkfwmlkixg hominis CESAR; 981316-Frhkfjohwa spp CESAR was developed and its performance characteristics determined by [facility]. It has not been cleared or approved by the Food and Drug Administration. Performed at: 01 - [address] [id number] Art History Professor: Roger Kenny MD, Phone: [phone] Amanda Montiel MD LAB CYTOLOGY ORDERABLES Final Result [facility] * NuSwab Vaginitis Plus (VG+) (01/29/2025 12:00 AM EDT) Atopobium Vaginae Low - 0 Score [facility] BVAB 2 Low - 0 Score [facility] Megasphaera 1 Low - 0 Score [facility] Comment: Calculate total score by adding the 3 individual bacterial vaginosis (BV) marker scores together. Total score is interpreted as follows: Total score 0-1: Indicates the absence of BV. Total score 2: Indeterminate for BV. Additional clinical data should be evaluated to establish a diagnosis. Total score 3-6: Indicates the presence of BV. Flower Albicans, CESAR Negative Negative [facility] Flower Glabrata, CESAR Negative Negative [facility] Trich Vag By CESAR Negative Negative [facility] Chlamydia Trachomatis, CESAR Negative Negative [facility] Neisseria Gonorrhoeae, CESAR Negative Negative [facility] Vaginal Fluid 01/29/2025 01/29/2025 Narrative [facility] - 02/01/2025 3:07 PM EDT Test(s) 138027- Atopobium vaginae; 218089- BVAB 2; 554222- Megasphaera 1 was developed and its performance characteristics determined by [employer]. It has not been cleared or approved by the Food and Drug Administration. Test(s) 150373-Azucfzk albicans, CESAR; 710746-Lnibcfp glabrata, CESAR was developed and its performance characteristics determined by [facility]. It has not been cleared or approved by the Food and Drug Administration. Performed at: 01 - [facility] [address] [id number] Art History Professor: Roger Kenny MD, Phone: [phone] us Amanda Montiel MD LAB MICROBIOLOGY - GENERAL ORD ERABLES Final Result [facility] documented in this encounter Visit Diagnoses Diagnosis Encounter for gynecological examination without abnormal finding- Primary Vaginitis and vulvovaginitis Cervicitis and endocervicitis Acute vaginitis Unspecified vaginitis and vulvovaginitis Bacterial vaginitis Unspecified vaginitis and vulvovaginitis Vaginal odor Unspecified symptom associated with female genital organs Vaginal discharge Leukorrhea, not specified as infective Vaginal irritation Pruritus of genital organs Encounter for screening for cervical cancer Hormone imbalance documented in this encounter Care Teams Wireless Retail Manager Relationship Specialty Start Date End Date Diony Sharma MD [address] [place] [address] PCP - General Internal Medicine 01/24/24 Kenyetta Dove MD [address] [place] [address] Referring Physician Endocrinology 08/01/24 Simón Ozuna MD [address] [place] [address] Referring Physician Urology 08/01/24 Amanda Montiel MD [address] [place] [address] Obstetrics and Gynecology 08/01/24 Krish Hodge MD [address] [place] [address] Referring Physician Ophthalmology 08/01/24 Beny Hoskins MD [address] [place] [address] [address] [place] [address] Referring Physician Gastroenterology 08/01/24 Family [facility] Mental Health 08/01/24 documented as of this encounter
--- OUTSIDE RECORDS SUMMARY | 2025-01-31 10:47 | XMS_ITS | Continuity of Care Document ---
Author Organization [facility] Address [address] [place] [address] Phone Care Team Providers Care Accounting Coordinator Name Role Phone Diony Sharma MD Primary Care Provider [phone] Shilpa Menendez PA-C Attending Provider Dalia Mar INSURANCE ADJUSTOR-C Attending Provider Kenyetta Dove MD Attending Provider [phone] Robbie Dale MD Attending Provider [phone] Omid Stevens RN Attending Provider [phone] Dalia Mar INSURANCE ADJUSTOR-C Referring Provider Robbie Dale MD Other Provider Yogi Redding MD Attending Provider [phone] Damian Lozoya APRN Emergency Provider Diony Benz II, MD Attending Provider [phone] Care Teams Patient Care Team Team Status: Active Member Role Status Dates Diony Sharma MD Primary Care Provider Active Visit Care Team Team Status: Inactive Member Role Status Dates Diony Sharma MD Primary Care Provider Active St art: November 09, 2024 End: November 09, 2024 Shilpa Menendez PA-C Attending Provider Active Start: November 09, 2024 End: November 09, 2024 Visit Care Team Team Status: Inactive Member Role Status Pina Sharma MD Primary Care Provider Active St art: November 21, 2024 End: November 21, 2024 COLTON ElizondoC Attending Provider Active S tart: November 21, 2024 End: November 21, 2024 Visit Care Team Team Status: Inactive Member Role Status Pina Sharma MD Primary Care Provider Active St art: November 27, 2024 End: November 27, 2024 Kenyetta Dove MD Attending Provider Active Sta rt: November 27, 2024 End: November 27, 2024 Visit Care Team Team Status: Inactive Member Role Status Pina Sharma MD Primary Care Provider Active St art: November 29, 2024 End: November 29, 2024 Robbie Dale MD Attending Provider Active S tart: November 29, 2024 End: November 29, 2024 Visit Care Team Team Status: Inactive Member Role Status Pina Sharma MD Primary Care Provider Active St art: November 29, 2024 End: November 29, 2024 COLTON ElizondoC Attending Provider Active S tart: November 29, 2024 End: November 29, 2024 Visit Care Team Team Status: Inactive Member Role Status Pina Sharma MD Primary Care Provider Active St art: December 07, 2024 End: December 07, 2024 Omid Stevens RN MSN ANP-C Attending Provider Act cecelia Start: December 07, 2024 End: December 07, 2024 Visit Care Team Team Status: Inactive Member Role Status Pina Sharma MD Primary Care Provider Active St art: December 18, 2024 End: December 18, 2024 Robbie Dale MD Attending Provider Active S tart: December 18, 2024 End: December 18, 2024 COLTON ElizondoC Referring Provider Active S tart: December 18, 2024 End: December 18, 2024 Visit Care Team Team Status: Active Member Role Status Pina Sharma MD Primary Care Provider Active St art: December 25, 2024 Robbie Dale MD Attending Provider Active S tart: December 25, 2024 Robbie Dale MD Other Provider Active Start : December 25, 2024 Dalia Risaliti , INSURANCE ADJUSTOR-C Referring Provider Active S tart: December 25, 2024 Visit Care Team Team Status: Inactive Member Role Status Pina Sharma MD Primary Care Provider Active St art: December 26, 2024 End: December 26, 2024 Yogi Redding MD Attending Provider Active Start: December 26, 2024 End: December 26, 2024 Visit Care Team Team Status: Inactive Member Role Status Pina Sharma MD Primary Care Provider Active St art: January 02, 2025 End: January 02, 2025 Damian Lozoya APRN Emergency Provider Active Start: January 02, 2025 End: January 02, 2025 Visit Care Team Team Status: Inactive Member Role Status Pina Sharma MD Primary Care Provider Active St art: January 08, 2025 End: January 08, 2025 Diony Benz II, MD Attending Provider Active Start: January 08, 2025 End: January 08, 2025 Visit Care Team Team Status: Inactive Member Role Status Pina Sharma MD Primary Care Provider Active St art: January 08, 2025 End: January 08, 2025 Diony Benz II, MD Attending Provider Active Start: January 08, 2025 End: January 08, 2025 Visit Care Team Team Status: Inactive Member Role Status Pina Sharma MD Primary Care Provider Active St art: January 25, 2025 End: January 25, 2025 Diony Benz II, MD Attending Provider Active Start: January 25, 2025 End: January 25, 2025 Patient Care Team Team Status: Inactive Member Role Status Pina Sharma MD Primary Care Provider Active St art: January 31, 2025 End: January 31, 2025 Diony Benz II, MD Attending Provider Active Start: January 31, 2025 End: January 31, 2025 Chief Complaint and Reason for Visit Chief Complaint Admit Date r60.0 R06.02 November 09, 2024 8:33 am R60.0 November 21, 2024 11:2 4am E89.0 R79.89 November 27, 2024 12:54 pm Snoring November 29, 2024 9:36a m m54.30 November 29, 2024 10:35 am R60.0 I27.20 R06.00 R06.83 R60.1 I10 Z86 .2 December 07, 2024 9:37am G47.30 G47.34 December 18, 2024 7:50 pm G47.30 G47.34 December 25, 2024 12:0 0am ref by Diony Sharma for edema, venous ins ufficiency December 26, 2024 8:57am lt knee pain January 02, 2025 11: 04am [place] [facility] [place] WX January 08 11:15am M25.562 - Pain in left knee January 08, 2025 11:18am M23.92 January 25, 2025 8: 43am [place] RES[place] [facility] [place] 31, 2025 1:50pm Reason for Visit Admit Date Acquired hypothyroidism November 29, 2024 9 :36am Anxiety and depression November 29, 2024 9: 36am Chronic back pain November 29, 2024 9:36a m Insomnia November 29, 2024 9:36a m Pulmonary hypertension November 29, 2024 9: 36am Sleep apnea November 29, 2024 9:36a m Sleep related hypoxia November 29, 2024 9:3 6am Leg swelling December 26, 2024 8:57 am Allergies, Adverse Reactions, Alerts Allergen Type Severity Reaction Last Updated Verified Status No Known Allergies Allergy Unknown 2024 1:57pm Yes Active Social History Smoking Status Status Start Date End Date Date of Observa tion Ex-smoker (finding) January 022024 12:30pm Observation Status Observation Response Date of Response Legal Sex Female (finding) Sex Assigned At Female March [id number] Status N January 07, 25 Not January 02, 2025 Family History Relationship Condition Age at Onset Recorded Date/T neel grandparent Malignant neoplasm of breast Unknown grandparent Lymphoma Unknown Problems Active Problems Medical Problem Onset Date Status Cat bite of finger Unknown Active Antral gastritis Unknown Active Sleep related hypoxia Unknown Active Insomnia Unknown Active Sprain of left knee Unknown Active Sprain of right knee Unknown Active Rotator cuff syndrome of right shoulder Unknown Active Primary osteoarthritis of right hip Unknown Active Sacroiliitis Unknown Active Primary osteoarthritis of both knees Unknown Active Graves disease Unknown Active Acquired hypothyroidism Unknown Active Sleep apnea Unknown Active Heart palpitations Unknown Active Light-headed Unknown Active Chronic pain Unknown Active Shoulder pain Unknown Active Pulmonary hypertension Unknown Active Leg swelling Unknown Active Flank pain Unknown Active Lumbosacral spondylosis Unknown Active Macromastia Unknown Active Phlebitis Unknown Active Thoracic degenerative disc disease Unknown Active Lumbar degenerative disc disease Unknown Active Bloating Unknown Active Chest tightness Unknown Active H/O: hysterectomy Unknown Active S/P thyroidectomy Unknown Active Previous section Unknown Active Anxiety and depression Unknown Active Chronic back pain Unknown Active Left knee pain Unknown Active Edema, peripheral Unknown Active Dehiscence of surgical wound Unknown Act cecelia Abdominal pain Unknown Active Irritable bowel syndrome with constipation Unkno wn Active Constipation Unknown Active Hypertensive heart disease Unknown Activ e Hypomagnesemia Unknown Active Inactive/Resolved Problems Medical Problem Onset Date Status Hypertensive urgency Unknown Resolved Knee sprain Unknown Resolved Shortness of breath Unknown Resolved Heart palpitations Unknown Resolved Eye pain Unknown Resolved Calf pain Unknown Resolved Headache Unknown Resolved Chest pressure Unknown Resolved Hypertension Unknown Resolved Hypertension Unknown Resolved Influenza Unknown Resolved Arthralgia of right shoulder region Unknown Resolved Medications Medication Status Dose Units Route Directions Qty Days St art Date Stop Date End Date Instructions Adherence Temazepam (Restoril) 15 mg Capsule Discont inued 30 MG PO Daily at bedtime as needed for Insomnia October 21, 2017 12:00a m September 20, 2022 7:24p m Methimazole (Tapazole) 5 mg Tablet Discont inued 10 MG PO every Tuesday, Tuesday, and Saturday October 21, 2017 12:00a m August 01, 2018 3:16p m Bupropion Hcl 300 mg Tablet Extended Release 24 Hr Discont inued 300 MG PO Every morning October 21, 2017 12:00a m September 20, 2022 7:23p m Amitriptyli ne 25 mg Tablet Discont inued 75 MG PO Bedtime Novem er 2017 1:00am September 20, 2022 7:23p m Omeprazole 20 mg Capsule,Del ayed Release(Dr/ Ec) Discont inued 1 TAB PO Daily Novemb er 2017 1:00am August 01, 2018 3:16p m Multivitami n (Multiple Vitamins) Tablet Active 1 TAB PO Daily 2018 1:00am Complies with drug therapy Ascorbic Acid (Vitamin C) (Vitamin C) 1,000 mg Tablet Discont inued 1000 MG PO Every morning 2018 1:00am September 20, 2022 7:23p m Alprazolam 1 mg tablet Discont inued 0.5 MG PO Daily as needed for Anxiety 2018 1:00am September 20, 2022 7:22p m Meloxicam 15 mg tablet Discont inued 15 MG PO Every morning Februa 2018 1:00am August 01, 2018 3:16p m Biotin 10,000 mcg Capsule Discont inued 58729 MCG PO Daily ua 2018 1:00am September 20, 2022 7:23p m Magnesium 200 mg Tablet Active 400 MG PO Twice daily ua 2018 1:00am Complies with drug therapy Calcium Carbonate-V itamin D3 (Os-Nirmal 500 + D3) 500 mg(1,250mg) -200 unit tablet Discont inued 1 TAB PO Twice daily ua 2018 1:00am September 20, 2022 7:23p m Melatonin 10 mg Tablet Active 10 MG PO Daily at bedtime ua 2018 1:00am Complies with drug therapy Methimazole 10 mg tablet Discont inued 5 MG PO every Tuesday, , Tuesday, and Tuesdayua 2018 1:00am August 01, 2018 3:16p m Cholecalcif jefry (Vitamin D3) 50,000 unit capsule Active 40133 UNIT PO every week ua 2018 1:00am Complies with drug therapy Levothyroxi ne 137 mcg tablet Discont inued 112 MCG PO Daily November 22, 2018 12:00a m Decem aroldo 2023 3:09p m Clonidine Hcl 0.1 mg tablet Discont inued 0.1 MG PO Daily as needed for hypertensiv e emergency 7 December 20, 2022 4:03pm Octob er 2022 8:37a m Hydrocodone -Acetaminop hen 5-325 mg Tablet Discont inued 1 TAB PO Twice daily as needed for Pain Octobe r 2022 12:00a m Decem aroldo 2023 3:08p m Diltiazem Hcl 240 mg capsule,ext ended release 24hr Active 240 MG PO Daily Octobe r 2022 12:00a m Complies with drug therapy Aspirin 81 mg Tablet,Chew able Discont inued 81 MG PO Daily Octobe r 2022 12:00a m December 05, 2023 11:41 am Escitalopra m Oxalate (Lexapro) 5 mg Tablet Discont inued 10 MG PO Daily Octobe r 2022 12:00a m Decem aroldo 2023 3:08p m Naproxen (Naprosyn) 500 mg tablet Discont inued 500 MG PO Twice daily September 20, 2023 12:00a m October 04, 2023 6:35a m Oxycodone-A cetaminophe n (Percocet) 5-325 mg tablet Discont inued 1 TAB PO Three times daily as needed for pain 7 2 September 20, 2023 December 05, 2023 11:42 am Mupirocin 2 % ointment Discont inued 1 APPLIC TOPICA L Twice daily 15 7 December 02, 2018 12:00a m December 15, 2018 5:08p m Ibuprofen 800 mg tablet Discont inued 800 MG PO Q8H as needed for pain December 15, 2018 12:00a m September 20, 2022 7:23p m Alprazolam 0.5 mg tablet Discont inued 0.5 MG PO As Directed as needed for Anxiety September 20, 2022 12:00a m Octob er 2022 8:34a m stated that she takes as needed, maybe once every couple of days. Liothyronin e 5 mcg Tablet Discont inued 10 MCG PO Daily September 20, 2022 12:00a m Dece aroldo 2023 3:12p m takes 10mg daily Tramadol 50 mg tablet Discont inued 100 MG PO Twice daily September 20, 2022 12:00a m Octob er 2022 8:37a m Acetaminoph en 500 mg Tablet Active 1000 MG PO Twice daily September 20, 2022 12:00a m Complies with drug therapy Baclofen 10 mg tablet Discont inued 10 MG PO Daily September 20, 2022 12:00a m Febru nettie 2023 11:38 am Metoprolol Tartrate 25 mg tablet Discont inued 25 MG PO Daily September 20, 2022 12:00a m Octob er 2022 8:37a m Lubiproston e 24 mcg Capsule Discont inued 24 MCG PO Daily September 20, 2022 12:00a m Decem aroldo 2023 3:12p m Liothyronin e 5 mcg tablet Active 5 MCG PO Daily Dece er 2023 3:09pm Complies with drug therapy Lubiproston e 24 mcg capsule Active 24 MCG PO Daily as needed [facility] 2023 3:10pm Complies with drug therapy Propranolol 20 mg tablet Active 20 MG PO Twice daily 2023 1:00am Complies with drug therapy Oseltamivir (Tamiflu) 75 mg capsule Discont inued 75 MG PO Q12H 10 2023 1:00am September 20, 2023 11:31 am Prednisone 20 mg tablet Active 40 MG PO Daily January 02, 2025 12:00a m administer with food or milk Complies with drug therapy Naproxen (Naprosyn) 500 mg tablet Discont inued 500 MG PO Twice daily October 04, 2023 6:31am December 05, 2023 11:42 am Escitalopra m Oxalate (Lexapro) 20 mg tablet Active 20 MG PO Daily [facility] 2023 1:00am Complies with drug therapy Levothyroxi ne 112 mcg capsule Active 112 MCG PO Daily [facility] 2023 1:00am Complies with drug therapy Ferrous Sulfate 325 mg (65 mg iron) tablet Active 325 MG PO Daily [facility] 2023 1:00am Complies with drug therapy turmeric Active PO [facility] 2023 1:00am Complies with drug therapy L.acid,gas, rg,rham-B. ani-cran (up4 Probiotics Women's) Active PO [facility] 2023 1:00am Complies with drug therapy Methylpredn isolone (Medrol (Jeffery)) 4 mg tablets,dos e pack Discont inued 0 PO per package directions [facility] 2023 1:00am October 25, 2024 8:11a m PO PER PKG DIR for 6 days Doxycycline Hyclate 100 mg capsule Discont inued 100 MG PO Twice daily 14 7 [facility] 2023 1:00am November 29, 2024 9:52a m with food Benzonatate 200 mg capsule Discont inued 200 MG PO Three times daily as needed for cough [facility] 2023 1:00am November 29, 2024 9:52a m Furosemide 40 mg tablet Active 40 MG PO Twice daily November 29, 2024 12:00a m Complies with drug therapy Metronidazo le 0.75 % gel Active 1 APPLIC TOPICA L Twice daily November 29, 2024 12:00a m Complies with drug therapy nystatin Active TOPICA L November 29, 2024 12:00a m Complies with drug therapy potassium chloride Active PO November 29, 2024 12:00a m Complies with drug therapy vitamin B complex Active PO November 29, 2024 12:00a m Complies with drug therapy Temazepam 30 mg capsule Active 30 MG PO Daily at bedtime as needed for sleep 1 November 29, 2024 12:00a m use if needed night of sleep study Complies with drug therapy Methylpredn isolone (Medrol (Jeffery)) 4 mg tablets,dos e pack Discont inued 0 PO per package directions December 05, 2023 12:00a m Decem aroldo 2023 3:09p m PO PER PKG DIR for 6 days Amoxicillin -Pot Clavulanate 875-125 mg tablet Discont inued 1 TAB PO Twice daily 18 03December 05, 2023 12:00a m Decem aroldo 2023 3:08p m Guaifenesin 600 mg tablet extended release 12hr Discont inued 600 MG PO Twice daily December 05, 2023 12:00a m November 29, 2024 9:52a m Albuterol Sulfate 90 mcg/actuati on HFA aerosol inhaler Discont inued 1 INH INHALA TION Every 4 hours as needed for shortness of breath or wheezing 6.7 December 05, 2023 12:00a m Decem 2023 3:07p m Procedures Procedure Date Performed Status XR lumbar spine 2-3V* November 29, 2024 10:44am com pleted XR chest 2V* December 07, 2024 10:18am complete d XR knee LT 4V* January 02, 2025 11:31am complet ed XR shoulder RT min 2V* January 02, 2025 11:37am completed XR knee LT 4V* January 08, 2025 11:18am comple emily XR pelvis 1-2V January 08, 2025 11:18am comple emily MR knee LT wo con January 25, 2025 8:44am compl eted Relevant Diagnostic Tests and/or Laboratory Data Laboratory Results Test Collection Date/Time Result Date/Time Result Interpretation Reference Range Result Comment Performing Site Erythroc yte Sediment ation Rate December 07, 2024 9:51am December 07, 2024 11:25am 22 mm/hr Above high normal 0-19 [facility] [id number] [address] [facility] [id number] Urine Color December 07, 2024 9:51am December 07, 2024 10:59am Light-yel low Yellow [facility] [id number] [address] [facility] [address] Urine Appearan ce December 07, 2024 9:51am December 07, 2024 10:59am Clear Clear [facility] [id number] [address] [place] [address] Urine Specific [place] December 07, 2024 9:51am December 07, 2024 10:59am 1.023 1.001-1.03 0 [facility] [id number] [address] [facility] [address] Urine pH December 07, 2024 9:51am December 07, 2024 10:59am 7.0 5.0-9.0 [facility] [id number] [address] [facility] [address] Urine Leukocyt e Esterase December 07, 2024 9:51am December 07, 2024 10:59am Negative Negative [facility] [id number] [address] [place] [address] Urine Nitrite December 07, 2024 9:51am December 07, 2024 10:59am Negative Negative [facility] [id number] [address] [facility] [address] Urine Protein December 07, 2024 9:51am December 07, 2024 10:59am Negative mg/dL Negative [facility] [id number] [address] [place] [address] Urine Glucose (UA) December 07, 2024 9:51am December 07, 2024 10:59am Normal mg/dL Normal [facility] [id number] [address] [place] [address] Urine Ketones December 07, 2024 9:51am December 07, 2024 10:59am Negative Negative [facility] [id number] [address] [facility] [address] Urine Urobilin ogen December 07, 2024 9:51am December 07, 2024 10:59am Normal mg/dL Normal [facility] [id number] [address] [facility] [address] Urine Bilirubi n December 07, 2024 9:51am December 07, 2024 10:59am Negative Negative [facility] [id number] [address] [facility] [address] Urine Occult Blood December 07, 2024 9:51am December 07, 2024 10:59am Negative Negative [facility] [id number] [address] [place] [address] Urine RBC December 07, 2024 9:51am December 07, 2024 11:00am 1-2 [HPF] 0-4 [facility] [id number] [address] [facility] [address] Urine WBC December 07, 2024 9:51am December 07, 2024 11:00am 1-2 [HPF] 0-4 [facility] [id number] [address] [facility] [address] Urine Squamous Epitheli al Cells December 07, 2024 9:51am December 07, 2024 11:00am 1-2 [HPF] 0-2 [facility] [id number] [address] [place] [address] Urine Bacteria December 07, 2024 9:51am December 07, 2024 11:00am None seen [HPF] None Seen [facility] [id number] [address] [facility] [address] Urine Hyaline Casts December 07, 2024 9:51am December 07, 2024 11:00am None [LPF] 0-8 [facility] [id number] [address] [facility] [address] Urine Mucus December 07, 2024 9:51am December 07, 2024 11:00am Rare [LPF] [facility] [id number] [address] [facility] [address] Glucose Level November 21, 2024 11:44am November 21, 2024 12:36pm 100 mg/dL 70-100 ADA recommended reference rangeRandom Glucose Reference Range is dependent on time and content of last meal. Glucose of more than 200 mg/dL in a nonstressed , ambulatory subject supports the diagnosis of Diabetes Mellitus. [facility] [id number] [address] [facility] [address] Glucose Level November 27, 2024 1:05pm November 27, 2024 2:18pm 72 mg/dL 70-100 ADA recommended reference rangeRandom Glucose Reference Range is dependent on time and content of last meal. Glucose of more than 200 mg/dL in a nonstressed , ambulatory subject supports the diagnosis of Diabetes Mellitus. [facility] [id number] [address] [facility] [address] Glucose Level December 07, 2024 9:51am December 07, 2024 11:21am 109 mg/dL Above high normal 70-100 ADA recommended reference rangeRandom Glucose Reference Range is dependent on time and content of last meal. Glucose of more than 200 mg/dL in a nonstressed , ambulatory subject supports the diagnosis of Diabetes Mellitus. [facility] [id number] [address] [facility] [address] Blood Urea Nitrogen November 21, 2024 11:44am November 21, 2024 12:36pm 13 mg/dL 12-21 [facility] [id number] [address] [facility] [address] Blood Urea Nitrogen November 27, 2024 1:05pm November 27, 2024 2:18pm 9 mg/dL 12-21 [facility] [id number] [address] [facility] [address] Blood Urea Nitrogen December 07, 2024 9:51am December 07, 2024 11:21am 12 mg/dL 12-21 [facility] [id number] [address] [place] [address] Creatini ne November 21, 2024 11:44am November 21, 2024 12:36pm 0.50 mg/dL Below low normal 0.60-1.20 [facility] [id number] [address] [facility] [address] Creatini ne November 27, 2024 1:05pm November 27, 2024 2:18pm 0.53 mg/dL Below low normal 0.60-1.20 [facility] [id number] [address] [facility] [address] Creatini ne December 07, 2024 9:51am December 07, 2024 11:21am 0.50 mg/dL Below low normal 0.60-1.20 [facility] [id number] [address] [facility] [address] Estimate d GFR (CKD-EPI ) November 21, 2024 11:44am November 21, 2024 12:36pm > 60.0 mL/Min [facility] [id number] [address] [facility] [address] Estimate d GFR (CKD-EPI ) November 27, 2024 1:05pm November 27, 2024 2:18pm > 60.0 mL/Min [facility] [id number] [address] [facility] [address] Estimate d GFR (CKD-EPI ) December 07, 2024 9:51am December 07, 2024 11:21am > 60.0 mL/Min [facility] [id number] [address] [facility] [address] Sodium Level November 21, 2024 11:44am November 21, 2024 12:36pm 138 mmol/L 136-145 [facility] [id number] [address] [facility] [address] Sodium Level November 27, 2024 1:05pm November 27, 2024 2:18pm 139 mmol/L 136-145 [facility] [id number] [address] [facility] [address] Sodium Level December 07, 2024 9:51am December 07, 2024 11:21am 139 mmol/L 136-145 [facility] [id number] [address] [facility] [address] Potassiu m Level November 21, 2024 11:44am November 21, 2024 12:36pm 4.2 mmol/L 3.5-5.1 [facility] [id number] [address] [facility] [address] Potassiu m Level November 27, 2024 1:05pm November 27, 2024 2:18pm 4.2 mmol/L 3.5-5.1 [facility] [id number] [address] [facility] [address] Potassiu m Level December 07, 2024 9:51am December 07, 2024 11:21am 4.2 mmol/L 3.5-5.1 [facility] [id number] [address] [facility] [address] Chloride Level November 21, 2024 11:44am November 21, 2024 12:36pm 103 mmol/L 98-107 [facility] [id number] [address] [facility] [address] Chloride Level November 27, 2024 1:05pm November 27, 2024 2:18pm 101 mmol/L 98-107 [facility] [id number] [address] [facility] [address] Chloride Level December 07, 2024 9:51am December 07, 2024 11:21am 101 mmol/L 98-107 [facility] [id number] [address] [facility] [address] Carbon Dioxide Level November 21, 2024 11:44am November 21, 2024 12:36pm 29.8 mmol/L 21.0-31.0 [facility] [id number] [address] [facility] [address] Carbon Dioxide Level November 27, 2024 1:05pm November 27, 2024 2:18pm 31.9 mmol/L Above high normal 21.0-31.0 [facility] [id number] [address] [facility] [address] Carbon Dioxide Level December 07, 2024 9:51am December 07, 2024 11:21am 31.0 mmol/L 21.0-31.0 [facility] [id number] [address] [facility] [address] Anion Gap November 21, 2024 11:44am November 21, 2024 12:36pm 9.4 mEq/L 6.0-15.0 [facility] [id number] [address] [facility] [address] Anion Gap November 27, 2024 1:05pm November 27, 2024 2:18pm 10.3 mEq/L 6.0-15.0 [facility] [id number] [address] [facility] [address] Anion Gap December 07, 2024 9:51am December 07, 2024 11:21am 11.2 mEq/L 6.0-15.0 [facility] [id number] [address] [facility] [address] Calcium Level November 21, 2024 11:44am November 21, 2024 12:36pm 8.8 mg/dL 8.6-10.3 [facility] [id number] [address] [place], [place] [address] Calcium Level November 27, 2024 1:05pm November 27, 2024 2:18pm 8.6 mg/dL 8.6-10.3 [facility] [id number] [address] [place] [address]87 Calcium Level December 07, 2024 9:51am December 07, 2024 11:21am 9.0 mg/dL 8.6-10.3 [facility] [id number] [address] [facility] [address] Magnesiu m Level December 07, 2024 9:51am December 07, 2024 11:21am 1.9 mg/dL 1.9-2.7 [facility] [id number] [address] [place] [address]955 Total Protein December 07, 2024 9:51am December 07, 2024 11:21am 6.5 g/dL 6.4-8.9 [facility] [id number] [address] [place] [address] 10241 Albumin December 07, 2024 9:51am December 07, 2024 11:21am 3.8 g/dL 3.5-5.7 [facility] [id number] [address] [place] [address] 12642 Globulin December 07, 2024 9:51am December 07, 2024 11:21am 2.7 g/dL [facility] [id number] [address] [place] [address] 16267 Albumin/ Globulin Ratio December 07, 2024 9:51am December 07, 2024 11:21am 1.4 [facility] [id number] [address] [place] [address]18 Total Bilirubi n December 07, 2024 9:51am December 07, 2024 11:21am 0.4 mg/dL 0.3-1.0 [facility] [id number] [address] [place] [address]310 Aspartat e Amino Transf (AST/SGO T) December 07, 2024 9:51am December 07, 2024 11:21am 20 U/L 13-39 [facility] [id number] [address] [facility] [address] Alanine Aminotra nsferase (ALT/SGP T) December 07, 2024 9:51am December 07, 2024 11:21am 29 U/L 7-52 [facility] [id number] [address] [place] [address] 57532 Alkaline Phosphat ase December 07, 2024 9:51am December 07, 2024 11:21am 56 U/L 34-104 [facility] [id number] [address] [place] [address] 42193 C-Reacti ve Protein High Sensitiv ity December 07, 2024 9:51am December 07, 2024 11:19am 15.7 mg/L Above high normal 0.0-0.9 Cardiovascu lar Risk Classificat ion (AHA/CDC)hs CRP < 1.0 mg/l low relative risk for CVDhsCRP 1.0-3.0 mg/l average relative risk for CVDhsCRP > 3.0 mg/l high relative risk for CVDhsCRP > 7.5 mg/l active inflammatio n*Two results two weeks apart and averaged provide a morestable estimate of hsCRP level.*hsCR P levels > 7.5 mg/l may suggest infection that canlimit the use of this marker for estimation of CVD risk. [facility] [id number] [address] [place] [address] 37199 B-Type Natriure tic Peptide November 21, 2024 11:44am November 21, 2024 12:35pm 54.0 pg/mL 5-100 [facility] [id number] [address] [place] [address] 09187 Free Thyroxin e November 27, 2024 1:07pm November 27, 2024 2:37pm 0.90 ng/dL 0.61-1.12 [facility] [id number] [address] [place] [address] Free Triiodot hyronine November 27, 2024 1:07pm November 27, 2024 4:34pm 3.12 pg/mL 2.50-3.90 [facility] [id number] [address] [place] [address] 78317 Thyroid Stimulat ing Hormone 3rd Gen November 27, 2024 1:07pm November 27, 2024 2:33pm 1.89 u[iU]/mL 0.45-5.33 [facility] [id number] [address] [place], [place] [address] Pharmacy Creatini ne Clearanc e (Chem November 21, 2024 11:44am November 21, 2024 12:36pm N/A [facility] [id number] [address] [place], [place] [address] Pharmacy Creatini ne Clearanc e (Chem November 27, 2024 1:05pm November 27, 2024 2:18pm N/A [facility] [id number] [address] [place], [place] [address] Pharmacy Creatini ne Clearanc e (Chem December 07, 2024 9:51am December 07, 2024 11:21am N/A [facility] [id number] [address] [place], [place] [address] Hemoglob in A1c December 07, 2024 9:51am December 07, 2024 12:35pm 5.7 % Above high normal 4.3-5.6 Increased risk for diabetes: 5.7 - 6.4diabetes : >6.4glycemi c control for adults with diabetes: <7.0 [facility] [id number] [address] [place], [place] [address] Estimate d Average Glucose December 07, 2024 9:51am December 07, 2024 12:35pm 117 mg/dL [facility] [id number] [address] [place], [place] [address] Urine Microalb umin mg/dl December 07, 2024 9:51am December 07, 2024 11:33am < 0.7 mg/dL 0.0-1.8 [facility] [id number] [address] [place], [place] [address] Urine Random Creatini ne December 07, 2024 9:51am December 07, 2024 11:33am 75.00 mg/dL No reference range established [facility] [id number] [address] [place], [place] [address] Urine Microalb umin/Cre atinine Ratio December 07, 2024 9:51am December 07, 2024 11:33am TNP Test not performed [facility] [id number] [address] [facility] [address]161 Rheumato id Factor December 07, 2024 9:51am December 08, 2024 4:36am 10.4 [IU]/mL <14.0 Performed at: - [address] [id number] b Director: Ramirez Ca PhD, Phone: [phone] [facility] 00 Serum Total Protein December 07, 2024 9:51am December 10, 2024 2:36pm 6.4 g/dL 6.0-8.5 [facility] 00 Albumin (Send Out) December 07, 2024 9:51am December 10, 2024 2:36pm 3.3 g/dL 2.9-4.4 [facility] 00 Alpha-1- Globulin s December 07, 2024 9:51am December 10, 2024 2:36pm 0.2 g/dL 0.0-0.4 [facility] 00 Alpha-2- Globulin s December 07, 2024 9:51am December 10, 2024 2:36pm 0.9 g/dL 0.4-1.0 [facility] 00 Beta Globulin s December 07, 2024 9:51am December 10, 2024 2:36pm 1.1 g/dL 0.7-1.3 [facility] 00 Gamma Globulin s December 07, 2024 9:51am December 10, 2024 2:36pm 0.9 g/dL 0.4-1.8 [facility] 00 Protein Electrop horesis M-Chacorta December 07, 2024 9:51am December 10, 2024 2:36pm Not observed g/dL Not Observed [facility] 00 Globulin (PEP) December 07, 2024 9:51am December 10, 2024 2:36pm 3.1 g/dL 2.2-3.9 [facility] 00 Albumin/ Globulin (PEP) December 07, 2024 9:51am December 10, 2024 2:36pm 1.1 0.7-1.7 [facility] 00 Protein Electrop horesis Note December 07, 2024 9:51am December 10, 2024 2:36pm Comment . Protein electrophor esis scan will follow via computer,ma il, or industrial sociologist delivery. [facility] 00 Free Page Light Chains, Quant December 07, 2024 9:51am December 10, 2024 2:36pm 12.3 mg/L 3.3-19.4 [facility] 00 Free Lambda Light Chains, Quant December 07, 2024 9:51am December 10, 2024 2:36pm 14.2 mg/L 5.7-26.3 [facility] 00 Free Page/La mbda Light Chain Ratio December 07, 2024 9:51am December 10, 2024 2:36pm 0.87 0.26-1.65 Performed at: [facility] [place] [address] [id number] b Director: Ramirez Ca PhD, Phone: [phone] [employer] 00 Anti-Nuc lear Antibody Screen December 07, 2024 9:51am December 10, 2024 9:08am Negative . Negative <1:80 Borderline 1:80 Positive >1:80ICAP nomenclatur e: AC-0For more information about Hep-2 cell patterns useANApatte rns.org, the official website for theInternat sampson regional medical centeral Consensus on Antinuclear Antibody (WILL)Patter ns (ICAP).Perf ormed at: [facility] [place], [place] [id number] b Director: Ramirez Ca PhD, Phone: [phone] [employer] 00 Anti-Nuc lear Ab Homogene ous Pattern December 07, 2024 9:51am December 08, 2024 9:51am N/A [facility] 00 Diagnostic Imaging Reports Author Larry Perez [facility] Authored November 29, 2024 2:02p m Report Dictated Date/Time Dictated By Status Radiology Report November 29, 2024 2:02pm Larry Perez MD completed [facility] [address] [address] XRay Report Signed Patient: Lupe Pickard MR#: [id number] : 1975 Acct:[id number] Age/Sex: 49 / F ADM Date: 5 Loc: XD Room: Type: [facility] Attending Dr: Dalia Mar INSURANCE ADJUSTOR-C Copies to: Dalia Mar NP~ Ordering Provider: Dalia Mar NP Date of [...] Perez M.D. 11/29/2024 2:03 PM Dictation Location: [place] [address] Transcribed By: [facility] 11/29/24 1403 Dictated By: Larry Perez MD 11/29/24 1402 Signed By: <Electronically signed by Larry Perez MD in [place]> 11/29/24 1403 Author Rizwana Thacker [facility] Authored December 07, 2024 11:3 7am Report Dictated Date/Time Dictated By Status Radiology Report December 07, 2024 11:37am Rizwana rivas MD completed [facility] [address] [address] XRay Report Signed Patient: Lupe Pickard MR#: [id number] : 1975 Acct:[id number] Age/Sex: 49 / F ADM Date: 5 Loc: XD Room: Type: REG CLI Attending Dr: Omid Stevens RN, MSN, ANP-C Copies to: OMID STEVENS RN, MSN~ Ordering Provider: OMID STEVENS RN, MSN Date [...] Thacker M.D. 12/07/2024 11:37 AM Dictation Location: [place] [address] Transcribed By: [facility] 12/07/24 1137 Dictated By: Rizwana Thacker MD 12/07/24 1137 Signed By: <Electronically signed by MD Rizwana Thacker in [place]> 12/07/24 1137 Author Bob Neff [facility] Authored January 02, 2025 12: 13pm Report Dictated Date/Time Dictated By Status Radiology Report January 02, 2025 12:13pm Bob Neff Jr DO completed [facility] [place] [address] XRay Report Signed Patient: Lupe Pickard MR#: [id number] : 1975 Acct:[id number] Age/Sex: 49 / F ADM Date: 5 Loc: ER Room: Type: [facility] ER Attending Dr: Copies to: Damian Lozoya APRN~ Ordering Provider: Damian Lozoya APRN Date of Service: 01/02/25 XR/XR knee LT 4V*: Extremity Injury, Lower ([id number]) XR/XR shoulder RT min 2V*: Extremity Injury, [...] 12:14 PM Dictation Location: [facility]-23 Transcribed By: [facility] 01/02/25 1214 Dictated By: Bob Neff Jr, DO 01/02/25 1213 Signed By: <Electronically signed by Bob Neff Jr, DO in [place]> 01/02/25 1214 Author Rao Gresham [facility] Authored January 08, 2025 8: 04pm Report Dictated Date/Time Dictated By Status Radiology Report January 08, 2025 8:04pm Rao Grij[address] rd , completed [facility] [address] [place] [address] XRay Report Signed Patient: Lupe Pickard MR#: [id number] : 1975 Acct:[id number] Age/Sex: 49 / F ADM Date: 5 Loc: [facility] Room: Type: [facility] Attending Dr: Diony Benz II, MD Copies to: Diony Benz MD~ Ordering Provider: Diony Benz MD Date of Service: 01/08/25 XR/XR [...] 8:07 PM Dictation Location: [facility]20 Transcribed By: BOB 01/08/252006 Dictated By: Rao Gresham DO 01/08/252003 Signed By: <Electronically signed by Rao Gresham DO in [place]> 01/08/252006 Author Rao Gresham [facility] Authored January 08, 2025 8: 07pm Report Dictated Date/Time Dictated By Status Radiology Report January 08, 2025 8:07pm Rao Grij[address] rd , DO completed [facility] [address] [place], [place] [address] XRay Report Signed Patient: Lupe Pickard MR#: [id number] : 1975 Acct:[id number] Age/Sex: 49 / F ADM Date: 5 Loc: [facility] Room: Type: [facility] Attending Dr: Diony Benz II, MD Copies to: Diony Benz MD~ Ordering Provider: Doiny Benz MD Date of Service: 01/08/25 XR/XR [...] 8:11 PM Dictation Location: [facility]-20 Transcribed By: BOB 01/08/252010 Dictated By: Rao Gresham DO 01/08/252006 Signed By: <Electronically signed by Rao Gresham DO in [place]> 01/08/252010 Author Rao Gresham [facility] Authored January 25, 2025 1: 20pm Report Dictated Date/Time Dictated By Status Radiology Report January 25, 2025 1:20pm Rao [address]rij[address] rd , DO completed [facility] [place] [id number] MRI Report Signed Patient: Lupe Pickard MR#: [id number] : 1975 Acct:[id number] Age/Sex: 49 / F ADM Date: 5 Loc: [facility] Room: Type: [facility] Attending Dr: Diony Benz II, MD Copies to: Diony Benz MD~ Ordering Provider: Diony Benz MD Date of Service: 01/25/25 MR/MR knee LT wo con: M23.92 MRI of the leftKnee without contrast TECHNIQUE: Multiplanar T1 and T2-weighted imaging of the knee obtained without contrast HISTORY: Left knee pain for one month. Difficulty walking. No injury COMPARISON:Plain film 01/08/2025 BONE MARROW: No infiltrative changes. BONE MARROW EDEMA: Subchondral medial femoral condyle bone marrow edema suspected less than 1 cm osteochondral defect FRACTURE: None BONE TUMOR: None BONY ALIGNMENT: Adequate DEGENERATION: Small marginal spurs JOINT EFFUSION: Large joint effusion MUSCLES: Unremarkable SOFT TISSUES: Unremarkable POPLITEAL CYST: None ANTERIOR CRUCIATE LIGAMENT: Intact POSTERIOR CRUCIATE LIGAMENT: Intact LATERAL COMPARTMENT: LATERAL MENISCUS: Intact. LATERAL ARTICULAR CARTILAGE: Intact. No osteochondral defect. No subcuticular bone marrow edema. PROXIMAL TIBIOFIBULAR JOINT: Intact POSTERIOR LATERAL COMPARTMENT: Intact lateral collateral ligament complex. Intact biceps femoris tendon. Intact popliteus tendon. COMMON PERONEAL NERVE: Intact MEDIAL COMPARTMENT: MEDIAL MENISCUS: A linear tear involving the body of the medial meniscus MEDIAL ARTICULAR SURFACE: Focal chondromalacia of the medial portion of medial femoral condyle subcentimeter osteochondral defect suspected. POSTERIOR MEDIAL COMPARTMENT: Medial collateral ligament complex intact. Adjacent edema may represent bursitis. The semimembranosus tendon intact. No ramp lesion of the posterior horn of medial meniscus present. Anterior subcutaneous edema. PATELLOFEMORAL COMPARTMENT: PATELLOFEMORAL ARTICULAR CARTILAGE: Intact ANTERIOR LIGAMENTS: Patellar ligament and quadriceps tendon are intact. MR/MR knee LT wo con IMPRESSION: Mid cervical body of the medial meniscus. Suspected osteochondral fragment of the medial portion of weightbearing region of the medial femoral condyle with bone marrow edema. May be unstable. Degenerative thinning of the weightbearing portion of the medial compartment of the knee. Impression dictated by: Rao Gresham M.D. 01/25/2025 1:28 PM Dictation Location: [facility]--16 Transcribed By: PWS 01/25/25 1328 Dictated By: Rao Gresham DO 01/25/25 1320 Signed By: <Electronically signed by Rao Gresham DO in OV> 01/25/25 1328 Vital Signs Vital Reading Result Reference Range Collection Date/Time Height 67 [in_i] November 29, 2024 11:15am Weight 143.33 kg November 29, 2024 11:15am Heart Rate 79 /min 60-100 November 29, 2024 9:53am Oxygen saturation by Pulse oximetry 97 % 95-100 November 29, 2024 9:53a m BP Systolic 143 mm[Hg] 100-140 November 29, 2024 9:53am BP Diastolic 83 mm[Hg] 60-100 November 29, 2024 9:53am BMI (Body Mass Index) 49.4 kg/m2 November 292024 11:15am Height 67 [in_i] December 26, 2024 9:16am Weight 143.33 kg December 26, 2024 9:16am Body Temperature 97.8 [degF] 97.6-99.0 December 26, 2024 9:16am Heart Rate 86 /min 60-100 December 26, 2024 9:16am Respiratory rate 16 /min -December 26, 2024 9:16am Oxygen saturation by Pulse oximetry 96 % 95-100 December 26, 2024 9:16 am BP Systolic 124 mm[Hg] 100-140 December 26, 2024 9:16am BP Diastolic 82 mm[Hg] 60-100 December 26, 2024 9:16am BMI (Body Mass Index) 49.4 kg/m2 November 292024 9:16am Height 67 [in_i] January 02 11:29am Weight 136.07 kg January 02 11:29am Body Temperature 98 [degF] 97.6-99.0 January 02, 2025 11:29am Heart Rate 89 /min 60-100 January 02 11:29am Respiratory rate 18 /min 12-January 02, 2025 11:29am Oxygen saturation by Pulse oximetry 100 % 95-100 January 02, 2025 11: 29am BP Systolic 144 mm[Hg] 100-140 January 02 11:29am BP Diastolic 71 mm[Hg] 60-100 January 02 11:29am Height 67 [in_i] January 08 11:40am Weight 136.07 kg January 08 11:40am BP Systolic 132 mm[Hg] 100-140 January 08 11:41am BP Diastolic 68 mm[Hg] 60-100 January 08 11:41am BMI (Body Mass Index) 47.0 kg/m2 January 08, 2025 11:40am BP Systolic 126 mm[Hg] 100-140 January 31, 2025 2:08pm BP Diastolic 66 mm[Hg] 60-100 January 31, 2025 2:08pm Advance Directives Advance Directive Response Recorded Date/ Time Advance Directives No January 3:47pm Insurance Providers Guarantor Loren Samaniego Address [address] [facility] [address] Contact Info. Home Phone: Payer Policy Id Subscriber's Name Subscriber Id Effectiv e Date Expiration Date Medicaid [id number] Loren Samaniego [id number] Medicare [id number] Loren Samaniego [id number] Encounters Encounter Location(s) Arrival/Admit Date Discharge/Depart Date Provider(s) Departed Clinical -Electrodiagnost ics November 09, 2024 8:33am November 09, 2024 8:34am Loren King PA-C Departed Clinical -Lab [facility] November 21, 2024 11:24am November 21, 2024 11:25am Dalia Mar NP Departed Clinical -Lab [facility] November 27, 2024 12:54pm November 27, 2024 12:55pm Kenyetta Dove MD Departed Physician/Prov ider Office Visit -[facility] Sleep Lab November 29, 2024 9:36am November 29, 2024 10:26am Robbie Dale MD Departed Clinical -XRay [facility] November 29, 2024 10:35am November 29, 2024 10:36am Dalia Mar NP Departed Clinical -XRay [facility] December 07, 2024 9:37am December 07, 2024 9:38am OMID STEVENS RN MSN Departed Clinical -Sleep Lab December 18, 2024 7:50pm December 18, 2024 7:51pm Robbie Dale MD Non-patient / Non-visit -[facility] Sleep Lab December 25, 2024 12:00am Robbie Dale MD Departed Physician/Prov ider Office Visit -[facility] December 26, 2024 8:57am December 26, 2024 9:40am Yogi Redding MD Departed Emergency -Emergency Room January 02, 2025 11:04am January 02, 2025 12:40pm Departed Physician/Prov ider Office Visit -[facility] January 08, 2025 11:15am January 08, 2025 12:07pm Loren Mauro MD Departed Clinical -[facility] January 08, 2025 11:18am January 08, 2025 11:19am Loren Mauro MD Departed Clinical -MRI [address] Closed January 25, 2025 8:43am January 25, 2025 8:44am Loren Mauro MD Departed Physician/Prov ider Office Visit -[facility] January 31, 2025 1:50pm January 31, 2025 2:46pm Loren Mauro MD Recent Diagnosis Onset Date Admit Date Acquired hypothyroidism Unknown November 9:36am Anxiety and depression Unknown November 29, 2024 9:36am Chronic back pain Unknown November 29, 2024 9:36am Insomnia Unknown November 29, 2024 9 :36am Pulmonary hypertension Unknown November 29, 2024 9:36am Sleep apnea Unknown November 29, 2024 9 :36am Sleep related hypoxia Unknown November 29, 2024 9:36am Leg swelling Unknown December 26, 2024 8:57am Assessments Diagnosis Onset Date Resolution Status Admit Date Acquired hypothyroidism acute J marlys 2024 9:36am Anxiety and depression acute 2024 9:36am Chronic back pain acute November 9:36am Insomnia acute November 29, 2024 9:36am Pulmonary hypertension acute ly 2024 9:36am Sleep apnea acute November 29 9:36am Sleep related hypoxia acute Nov 9:36am Leg swelling acute December 26, 2 025 8:57am Plan of Treatment Author Robbie Dale [facility] Authored November 29, 2024 12:40 pm Her history and physical cer tainly suggest sleep apnea. Although her sleep study 2 years ago had a normal AHI, her body weight has increased substantially since then. I am very suspicious she has sleep apnea. I reviewed the diagnosis and its implications and she does express good understanding. We also reviewed treatment options. If she does prove to have sleep apnea she is comfortable with trying auto CPAP. Pain can interfere with sleep quality and continuity, and may be a cause of excessive fatigue Hypothyroidism can worsen sleep apnea both directly and indirectly. Untreated hypothyroidism increases apnea by overall reduced resting muscle tone, increased soft tissue swelling with resulting physical narrowing, and by tending to increased body weight. However, once hypothyroidism is effectively treated and medical euthyroid status is established, controlled hypothyroidism should not have negative effects on sleep apnea severity. She reports her anxiety and depression are currently adequately controlled. She can occasionally have insomnia, and did experience that problem during her sleep test in [place]. She would feel more comfortable if she had a hypnotic available the night of her repeat sleep study in case it were needed. Her insomnia is overall likely worsened by her increased time in bed, and I encouraged her to get up every single day at 7 AM and did not get into bed any earlier than 11 PM. Sleep hygiene and mild sleep restriction reviewed Her wearable device shows regular nocturnal desaturations with minimums in the 70s to mid 80s. The device is not able to tell duration of time, but I am concerned that hypoventilation and hypoxia may also be present during sleep. This could be a cause for pradip yet otherwise unexplained lower extremity edema, as sleep hypoxia may lead to pulmonary hypertension Referral chart includes diagnosis of pulmonary hypertension pulmonary hypertension can be a complication of sleep apnea and associated hypoxia, and in that circumstance the pulmonary hypertension may improve with resolution of the hypoxia Author Yogi Redding [facility] Authored December 26, 2024 1:10 pm Since this patient did have an episode of cellulitis I am recommending a full functional venous duplex evaluation. We need to evaluate the valves to see if there is any venous in Incompetence and/or venous insufficiency leading to venous hypertension which might might cause the cellulitis. In addition I recommended the exercise and weight loss for this pleasant patient. We will see her back in a few weeks to go over the duplex results. Future Tests Future scheduled test information is unavailable Pending Tests Pending diagnostic test information is unavailable Future Visits Future appointment information is unavailable Referrals to Other Providers Reason for Referral Referral Start Date Provider Provider Contact Information Provider Address [facility] Work Phone: [address] [employer] [facility] [address] Diony Sharma MD Work Phon e: [address] [facility] [address] Future Procedures Future procedure information is unavailable Future Medications Future medication information is unavailable Patient Instructions Instruction Admit Date Knee Sprain ED January 02, 2025 11: 04am
--- OUTSIDE RECORDS SUMMARY | 2025-02-06 11:29 | XMS_ITS | Encounter Summary ---
Author Organization [facility] Address [address] [place] [address] Care Team Providers Care Cotton Converter Name Role Phone Simón Davidson MD Primary Care Provider [phone] Diony Sharma MD Primary Care Provider [phone] Kenyetta Dove MD Unavailable [phone] Simón Ozuna MD Unavailable [phone] Amanda Montiel MD Unavailable [phone] Krish Hodge MD Unavailable [phone] Beny Hoskins MD Unavailable [phone] Encounter Details Date Type Department Care Team (Late st Contact Info) Description 01/23/2024 Orders Only [facility] [place] [facility] [address] [place] [address] A, Unknown Practice [address] [place] [address] Social History Tobacco Use Types Packs/Day [...] 02/12/2025 11:10 AM EDT [facility] [address] [place] [phone] Kenyetta Dove MD [address] [place] [address] 02/12/2025 2:00 PM EDT Ancillary Procedure [facility] [address] [place] [address] 02/12/2025 2:45 PM EDT Office Visit [facility] [address] [place] [phone] Amanda Montiel MD [address] [place] [address] documented as of this encounter Procedures Procedure [...] on filedocumented in this encounter Care Teams Cotton Converter Relationship Specialty Start Date End Date Simón Davidson MD [address] [place] [address] PCP - General Milieu Coordinator 01/16/24 01/23/24 Diony Sharma MD [address] [place] [address] PCP - General Internal Medicine 01/24/24 Kenyetta Dove MD [address] [place] [address] Referring Physician Endocrinology 08/01/24 Simón Ozuna MD [address] [place] [address] Referring Physician Urology 08/01/24 Amanda Montiel MD [address] [place] [address] Obstetrics and Gynecology 08/01/24 Krish Hodge MD [address] [place] [address] Referring Physician Ophthalmology 08/01/24 Beny Hoskins MD [address] [place] [address] [address] [place] [address] Referring Physician Gastroenterology 08/01/24 [facility] 08/01/24 documented as of this encounter
--- OUTSIDE RECORDS SUMMARY | 2025-02-06 11:29 | XMS_ITS | Encounter Summary ---
Author Organization [facility] Address [address] [place] [address] Care Team Providers Care Newborn Photographer Name Role Phone Diony Sharma MD Primary Care Provider [phone] Kenyetta Dove MD Unavailable [phone] Simón Ozuna MD Unavailable [phone] Amanda Montiel MD Unavailable [phone] Krish Hodge MD Unavailable [phone] Beny Hoskins MD Unavailable [phone] Encounter Details Date Type Department Care Team (Late st Contact Info) Description 12/07/2024 External Result Encounter [facility] External Department Unsolicited Omid Stevens, ASSOCIATE PROGRAM MANAGER [address] [place] [address] Social History Tobacco Use Types Packs/Day Years [...] [facility] [address] [place] [address] Kenyetta Dove MD [address] [place] [address] 02/12/2025 2:00 PM EDT Ancillary Procedure [facility] [place] [facility] [address] [place] [phone] 02/12/2025 2:45 PM EDT Office Visit [facility] [place] [facility] [address] [place] [address] Amanda Montiel MD [address] [place] [address] documented as of this encounter [...] Thacker M.D. 12/07/2024 11:37 AM Dictation Location: [place] [address] Transcribed By: [facility] 12/07/24 1137 Dictated By: Rizwana Thacker MD 12/07/24 1137 Signed By: <Electronically signed by MD Rizwana Thacker in OV> 12/07/24 1137 Narrative 12/07/2024 11:40 AM EDT [facility] Main [place] [address] [place], [place] [address] [address] XRay Report Signed Patient: Lupe Pickard MR#: [id number] : 1975 Acct:[id number] Age/Sex: 49 / F ADM Date: 12/07/24 Loc: XD Room: Type: [facility] CLI Attending Dr: Omid Stevens RN, MSN, [...] Procedure Note Radiology, Radiologist, MD - 12/07/2024 [facility] [place] [address] XRay Report Signed Patient: Lupe Pickard MMR#: [id number] : 1975Acct:[id number] Age/Sex: 49 / FADM Date: 12/07/24 Loc: XD Room:Type: [facility] CLI Attending Dr: Omid Stevens RN, MSN, [...] Thacker M.D. 12/07/2024 11:37 AM Dictation Location: [place] [address] Transcribed By: [facility] 12/07/24 1137 Dictated By: Rizwana Thacker MD 12/07/24 1137 Signed By: <Electronically signed by MD Rizwana Thacker in OV> 12/07/24 1137 us Omid Stevens ASSOCIATE PROGRAM MANAGER IMG XR PROCEDURES Final Resu lt documented in this encounter Visit Diagnoses Not on filedocumented in this encounter Care Teams Newborn Photographer Relationship Specialty Start Date End Date Diony Sharma MD [address] [place] [address] PCP - General Internal Medicine 01/24/24 Kenyetta Dove MD [address] [place] [address] Referring Physician Endocrinology 08/01/24 Simón Ozuna MD [address] [place] [address] Referring Physician Urology 08/01/24 Amanda Montiel MD [address] [place] [address] Obstetrics and Gynecology 08/01/24 Krish Hodge MD [address] [place] [address] Referring Physician Ophthalmology 08/01/24 Beny Hoskins MD [address] [place] [address] [address] [place] [address] Referring Physician Gastroenterology 08/01/24 [facility] Mental Health 08/01/24 documented as of this encounter
--- OUTSIDE RECORDS SUMMARY | 2025-02-06 11:29 | XMS_ITS | Patient Health Record ---
Author Organization [facility] Address [address] [place] [address] Care Team Providers Care Bootmaker Name Role Phone Mcintosh Radha Primary Care Provider [phone] Gissell Kaufman Unavailable [phone] Dr. Bob Ureña Unavailable [phone] Mary Fu Unavailable [phone] Allergies No Known Allergies Reason For Referral No Information Medications Medication SIG (Take, Route, Frequency, Duration) Notes Start Date End Date Status Aspirin 81 81 MG 1 tablet Orally Once a day Not-Taking Topamax Not-Taking Skelaxin Not-Taking Amitiza Not-Taking Elavil Not-Taking Linzess 72 MCG 1 capsule at least 3 0 minutes before the first meal of the day on an empty stomach Orally Once a day Not-Taking Oyster Shell Calcium/D 500-5 MG-MCG 1 tablet with meals Orally Twice a day Not-Taking Tramadol 50 mg 2 tablets orally twi ce a day Not-Taking Baclofen 10 MG 1 tablet Orally Twic e a day Not-Taking metroNIDAZOLE Not-Ta salomon Semaglutide-Weight Management 0.25 MG/0.5ML 0.5 mL Subcutaneous Not-Taking Iron 325 (65 Fe) MG 1 tablet Orally 1x a day Active Propranolol HCl 20 MG 1 tablet Orally twice daily As needed Active Tylenol Extra Strength 500 MG 2 tablets Orally twice a day Active Cardizem CD 240 MG 1 capsule Orally Onc e a day Active hydrOXYzine Pamoate 25 MG 1 capsule Oral ly every 6 hours as needed for anxiety 03/04/2023 Active Magnesium Oxide 400 MG 1 tablet Orally t wice a day Active Escitalopram Oxalate 20 MG TAKE 1 TABLET Orally Once a day Active Liothyronine Sodium 5 MCG 2 tablet on an empty stomach Orally Once a day Active Turmeric Active Probiotic Active Super B Complex Acti ve Melatonin 10 MG as directed Orally Active SEROquel XR Not-Taki ng Cleocin 2 % 1 application at bedtime Vaginal Once a day; Duration: 5 days 08/20/2014 Not-Taking Meclofenamate Sodium 50 MG 1 capsule Orally prn bleeding; Duration: 30 Not-Takin g Vitamin D3 50 MCG (1999 UT) 1 capsule Orally Once a day Active oxyCODONE HCl 5 MG 1 tablet as needed Orally 2x a day Not-Taking Wellbutrin Not-Takin g Zoloft Not-Taking SEROquel Not-Taking Social History Tobacco Use: Social History Observation [...] Status Risk Notes Problem Generalized anxiety disorder (42743834) Generalized Anxiety Disorder (SANDRA) (F41.1) Active confirmed Problem Body mass index 40+ - morbidly obese (846057535) BMI 40.0-44.9, adult (Z68.41) Active confirmed Problem Depressive disorder (88021374) Unspecified Depressive Disorder (F32.9) Active confirmed Problem Posttraumatic stress disorder (34326162) Post traumatic stress disorder (F43.10) Active confirmed Vital Signs Heart Rate 88 /min 10/24/2024 Oximetry 98 % 10/24/2024 Blood pressure diastolic 80 mm Hg 10/24/2024 Height 67.5 in 10/24/2024 Blood pressure systolic 130 mm Hg 10/24/2024 Weight 307.0 lbs 10/24/2024 BMI 47.37 kg/m2 10/24/2024 Encounters Encounter Location Date Provider Diagnosis [facility] [address] [place] [address] 05/24/2024 Radha Mcintosh Generalized Anxiety Disorder (SANDRA) F41.1 [facility] [address] [place] [address] 06/25/2024 Radha Mcintosh Generalized Anxiety Disorder (SANDRA) F41.1 [facility] [place] [place] [address] 01/09/2025 Radha Mcintosh Generalized Anxiety Disorder (SANDRA) F41.1 [place] [place] [address] 05/01/2024 Mary Fu Other dental procedure status Z98.818 ; Acute gingivitis, plaque induced K05.00 ; Encounter for dental examination and cleaning with abnormal findings Z01.21 ; Dental caries on pit and fissure surface penetrating into dentin K02.52 and Necrosis of pulp K04.1 [facility] [address] [place] [address] 11/01/2024 Gissell Kaufman Acute gingivitis, plaque induced K05.00 [facility] [address] [facility] [place] [address] 04/18/2024 Radha Mcintosh Generalized Anxiety Disorder (SANDRA) F41.1 ; Unspecified Depressive Disorder F32.9 and Post traumatic stress disorder F43.10 [facility] [address] [place] [address] 10/24/2024 Radha Mcintosh Generalized Anxiety Disorder (SANDRA) F41.1 and Post traumatic stress disorder F43.10 [facility] [address] [place] [address] 07/18/2024 Radha Mcintosh Generalized Anxiety Disorder (SANDRA) F41.1 ; Unspecified Depressive Disorder F32.9 and Post traumatic stress disorder F43.10 [facility] [address] [place] [address] 01/16/2025 Radha Mcintosh Generalized Anxiety Disorder (SANDRA) F41.1 [...] contact information was provided to the patient/guardian. 01/16/2025 Generalized Anxiety Disorder (SANDRA) (ICD-10 - F41.1) [...] contact information was provided to the patient/guardian. 01/16/2025 Unspecified Depressive Disorder (ICD-10 - F32.9) 10/24/2024 Post traumatic stress disorder (ICD-10 - F43.10) 11/01/2024 Acute gingivitis, plaque induced (ICD-10 - K05.00) 01/09/2025 Generalized Anxiety Disorder (SANDRA) (ICD-10 - F41.1) 05/01/2024 Other dental procedure status (ICD-10 - [...] Acute gingivitis, plaque induced (ICD-10 - K05.00) 01/16/2025 Post traumatic stress disorder (ICD-10 - F43.10) 05/01/2024 Encounter for dental examination and cleaning with abnormal findings (ICD-10 - Z01.21) 05/01/2024 Dental caries on pit and fissure surface penetrating into dentin (ICD-10 - K02.52) 05/01/2024 Necrosis of pulp (ICD-10 - K04.1) Plan Of Treatment Next Appt Details Provider Name:Bob Ureña, 0 02/21/2025 10:35:00 AM, [address] [place], [address], Provider Name:Gissell Kaufman , 07/04/2025 02:20:00 PM, [address] [place], [address], Insurance Providers Payer Name Payer Address Payer Phone Subscriber Number Group Number Insured Name Patient Relationship to Insured Coverage Start Date Coverage End Date MEDICARE C[place] [address] [place] [address] [id number] EMILY TORIBIO Self - patient is the insured 0 MEDICAID [place] TO [facility] [address] [place] [address] [phone] [id number] EMILY TORIBIO Self - patient is the insured 0 DENTAL MEDICAID [place] [address] [place] [address] [id number] EMILY TORIBIO Self - patient is the insured 0 MEDICAID [facility] TO [facility] [address] [place] [address] [id number] EMILY TORIBIO Self - patient is the [...]
--- OUTSIDE RECORDS SUMMARY | 2025-02-06 11:29 | XMS_ITS | Encounter Summary ---
Author Organization [facility] Address [address] [place] [address] Phone Care Team Providers Care Digital Solution Architect Name Role Phone Simón Davidson DO Primary Care Provider + Encounter Details Date Type Department Care Team (Late st Contact Info) Description 09/20/2022 Orders Only [facility] [address] [place] [address] Conversion, Onbase Social History Tobacco Use Types [...] on filedocumented in this encounter Care Teams Digital Solution Architect Relationship Specialty Start Date End Date Simón Davidson DO [address] [place] [address] PCP - General 10/21/17 documented as of this encounter
--- OUTSIDE RECORDS SUMMARY | 2025-02-06 11:29 | XMS_ITS | Encounter Summary ---
Author Organization [facility] Address [address] [place] [address] Care Team Providers Care Metal Finisher Name Role Phone Diony Sharma MD Primary Care Provider [phone] Kenyetta Dove MD Unavailable [phone] Simón Ozuna MD Unavailable [phone] Amanda Montiel MD Unavailable [phone] Krish Hodge MD Unavailable [phone] Beny Hoskins MD Unavailable [phone] Encounter Details Date Type Department Care Team (Late st Contact Info) Description 02/22/2024 Orders Only [facility] [place] [facility] [address] [place] [address] Kenyetta Dove MD [address] [place] [address] Social History Tobacco Use Types Packs/Day Years [...] 02/12/2025 11:10 AM EDT [facility] [address] [place] [address] Kenyetta Dove MD [address] [place] [address] 02/12/2025 2:00 PM EDT Ancillary Procedure [facility] [place] [facility] [address] [place] [address] 02/12/2025 2:45 PM EDT Office Visit [facility] [place] [facility] [address] [place] [address] Amanda Montiel MD [address] [place] [address] documented as of this encounter Procedures [...] on filedocumented in this encounter Care Teams Metal Finisher Relationship Specialty Start Date End Date Diony Sharma MD [address] [place] [address] PCP - General Internal Medicine 01/24/24 eKnyetta Dove MD [address] [facility] [place] [address] Referring Physician Endocrinology 08/01/24 Simón Ozuna MD [address] [place] [address] Referring Physician Urology 08/01/24 Amanda Montiel MD [address] [place] [address] Obstetrics and Gynecology 08/01/24 Krish Hodge MD [address] [place] [address] Referring Physician Ophthalmology 08/01/24 Beny Hoskins MD [address] [place] [address] [address] [place] [address] Referring Physician Gastroenterology 08/01/24 [facility] 08/01/24 documented as of this encounter
--- OUTSIDE RECORDS SUMMARY | 2025-02-06 11:29 | XMS_ITS | Clinical Summary ---
Author Organization [facility] Address [address] [facility] [place] [address] Care Team Providers Care Oyster Preparer Name Role Phone Damian Lakhani MD Unavailable [phone] Source Comments The following information is NOT included in Care Everywhere downloads:Psychiatric notes, ECG results, Cardiac Rehab notes, Pulmonary Function notes, data from [facility] (includes but not limited toPregnancy data,audiograms, eye exams, pre-surgical evaluation notes, well-child exam data).[facility] Allergies No known active allergies Medications tramadol (ULTRAM) 50 MG tablet Take 2 tablets by mouth 2 times per day as needed for Spondylosis without myelopathy 3 Active temazepam (RESTORIL) 30 MG capsule TAKE 1 CAPSULE BY MOUTH ONCE A DAY (AT BEDTIME) NEEDED FOR SLEEP 30 DAY SUPPLY 3 Active Multiple Vitamin (Multi Vitamin Daily) TABS Take by mouth. Activ e metoprolol (TOPROL-XL) 25 mg XL tablet Take by mouth. 3 Active magnesium oxide (MAG-OX) 400 MG tablet Take by mouth every 12 (twelve) hours. 3 Active levothyroxine (SYNTHROID) 112 MCG tablet Take 1 tablet (112 mcg) by mouth daily in the morning on an empty stomach 3 Active fluconazole (DIFLUCAN) 100 MG tablet Take 100 mg by mouth daily. for 10 days 3 Active Cholecalciferol (vitamin D3) 50 MCG (1999 UT) CAPS capsule Take by mouth daily. 3 Active CALCIUM ORAL Calcium + D Active Active baclofen (LIORESAL) 10 MG tablet TAKE 1 TABLET (10 MG) BY MOUTH TWICE A DAY 3 Active ALPRAZolam (XANAX) 0.5 MG tablet Take 0.5 mg by mouth daily. 3 Active liothyronine (CYTOMEL) 5 MCG tablet Take 5 mcg by mouth 2 times daily. 3 Active Social History Tobacco Use Types Packs/Day Years Used Date Smoking Tobacco: Former Cigarettes Smokeless Tobacco: Never Tobacco Cessation:Counseling Given: Not Answered Comments Unknown Sex and Gender Information Value Date Recorded Sex Assigned at Not on file Legal Sex Female 11:52 AM EST Gender Identity Not on file Sexual Orientation Not on file Plan of Treatment Health Maintenance Due Date Last Done Comments Colonoscopy 1977 HIV Test 1992 Hepatitis C Antibody 1995 Tdap Booster 1995 Hepatitis A (HAV) Vaccine (optional start 19+ years) 1996 Hepatitis B (HBV) Vaccine (1 of 3 - 19+ 3-dose series) 1996 Pap Smear 1998 Annual Wellness Visit (G0438) 11/28/2015 Mammography 2017 CRC Screening 2022 Cologuard (Stool DNA) 2022 FIT 2022 COVID-19 Vaccine (1 - 2023-2 5 season) 2025 Influenza Vaccine (#1) 2025 Shingles (RZV) Vaccine (1 of 2) 2027 Cholesterol 08/12/2027 08/11/2022 Pneumococcal Vaccine(s) Aged Out No l onger eligible based on patient's age to complete this topic Insurance [address] [place] [address] MEDICAID MEDICARE Care Teams Oyster Preparer Relationship Specialty Start Date End Date Damian Lakhani MD [address] [place], [place] [address] Physician Orthopaedic Surgery 10/02/22
--- OUTSIDE RECORDS SUMMARY | 2025-02-06 11:29 | XMS_ITS | Encounter Summary ---
Author Organization [facility] Address [address] [place] [address] Care Team Providers Care Steam And Power Superintendent Name Role Phone Diony Sharma MD Primary Care Provider [phone] Kenyetta Dove MD Unavailable [phone] Simón Ozuna MD Unavailable [phone] Amanda Montiel MD Unavailable [phone] Krish Hodge MD Unavailable [phone] Beny Hoskins MD Unavailable [phone] Reason for Visit * Reason Onset Date Comments lab results 12/10/2024 Encounter Details Date Type Department Care Team (Late st Contact Info) Description 12/10/2024 Results Follow-Up [facility] Internal Medicine [address] [place] [address] Omid Stevens, CHIEF COMPRESSOR STATION ENGINEER [address] [place] [address] Rheumatoid factor, WILL, Protein electrophoresis, [...] ----- Message ----- From: Interface, Incoming Lab [facility] Background Sent: 12/10/2024 2:37 PM EDT To: [...] Description 02/12/2025 11:10 AM EDT Office Visit [facility] [place] [facility] [address] [place] [address] Kenyetta Dove MD [address] [place] [address] 02/12/2025 2:00 PM EDT Ancillary Procedure [facility] [place] [facility] [address] [place] [address] 02/12/2025 2:45 PM EDT Office Visit [facility] [address] [place] [address] Amanda Montiel MD [address] [place] [address] documented as of this encounter Visit Diagnoses Not on filedocumented in this encounter Care Teams Steam And Power Superintendent Relationship Specialty Start Date End Date Diony Sharma MD [address] [place] [address] PCP - General Internal Medicine 01/24/24 Kenyetta Dove MD [address] [place] [address] Referring Physician Endocrinology 08/01/24 Simón Ozuna MD [address] [facility] [place] [address] Referring Physician Urology 08/01/24 Amanda Montiel MD [address] [place] [address] Obstetrics and Gynecology 08/01/24 Krish Hodge MD [address] [facility] [place] [address] Referring Physician Ophthalmology 08/01/24 Beny Hoskins MD [address] [place] [address] [address] [place] [address] Referring Physician Gastroenterology 08/01/24 [facility] 08/01/24 documented as of this encounter
--- OUTSIDE RECORDS SUMMARY | 2025-02-06 11:29 | XMS_ITS | Encounter Summary ---
Author Organization [facility] Address [address] [place] [address] Phone Care Team Providers Care Operater Name Role Phone Simón Davidson DO Primary Care Provider + Encounter Details Date Type Department Care Team (Late st Contact Info) Description 11/05/2022 Orders Only [facility] [address] [place] [address] Conversion, Onbase Social History Tobacco Use Types [...] on filedocumented in this encounter Care Teams Operater Relationship Specialty Start Date End Date Simón Davidson DO [address] [facility] [place] [address] PCP - General 10/21/17 documented as of this encounter
--- OUTSIDE RECORDS SUMMARY | 2025-02-06 11:29 | XMS_ITS | Encounter Summary ---
Author Organization [facility] Address [address] [place] [address] Phone Care Team Providers Care Tar Chaser Name Role Phone Simón Davidson DO Primary Care Provider + Encounter Details Date Type Department Care Team (Late st Contact Info) Description 11/09/1976 Scanned Document [facility] [address] [place] [address] Scanning, Generic Provider Social History Tobacco Use [...] on filedocumented in this encounter Care Teams Tar Chaser Relationship Specialty Start Date End Date Simón Davidson DO [address] [place] [address] PCP - General 10/21/17 documented as of this encounter
--- OUTSIDE RECORDS SUMMARY | 2025-02-06 11:29 | XMS_ITS | Clinical Summary ---
Author Organization [facility] Address [address] [place] [address] Care Team Providers Care Subway Operator Name Role Phone Diony Sharma MD Primary Care Provider [phone] Kenyetta Dove MD Unavailable [phone] Simón Ozuna MD Unavailable [phone] Amanda Montiel MD Unavailable [phone] Krish Hodge MD Unavailable [phone] Beny Hoskins MD Unavailable [phone] Allergies No known active allergies Medications B Fdjtadx-Telqit-BE (Super Quints B-50) tablet Take by mouth [...] mouth Daily 90 tablet 3 08/15/19 25 026 Active cholecalciferol (Vitamin D-3) 50 MCG (1999) capsuleIndications :Primary osteoarthritis involving multiple joints Take 1 capsule (50 mcg) by mouth in the morning. 30 capsule 11 09/25/19 25 Active metroNIDAZOLE (Metrogel) 0.75 % gelIndications:Ros acea Apply twice daily to rosacea for 8 weeks. 45 g 10/10/19 25 026 Active nystatin (Mycostatin) ointmentIndication s:Cutaneous Candidiasis Apply thin film BID prn irritation 30 g 1 10/17/19 25 Active losartan-hydroCHLO ROthiazide (Hyzaar) 100-12.5 MG tablet Take 1 tablet by mouth Daily Active liothyronine (Cytomel) 5 MCG tabletIndications: Acquired hypothyroidism TAKE 1 TABLET BY MOUTH 2 TIMES A DAY 180 tablet 1 01/02/20 25 Active HYDROcodone-acetam inophen ([place]) 5-325 MG tabletIndications: Acute pain of left knee Take 1-2 tablets by mouth every 6 (six) hours if needed for severe pain 42 tablet 01/23/20 25 Active clindamycin (Cleocin) 2 % vaginal creamIndications:V aginitis and vulvovaginitis,Cer vicitis and endocervicitis,Acu te vaginitis,Bacteria l vaginitis Insert 1 applicator into the vagina at bedtime for 7 days 40 g 01/31/20 25 025 Active HYDROcodone-acetam inophen ([place]) 5-325 MG tabletIndications: Acute pain of left knee Take 1-2 tablets by mouth every 6 (six) hours if needed for severe pain for up to 7 days 42 tablet 01/12/20 25 025 Discontin ued(Reord er) HYDROcodone-acetam inophen ([place]) 5-325 MG tabletIndications: Acute pain of left knee Take 1-2 tablets by mouth every 6 (six) hours if needed for severe pain 42 tablet 01/22/20 25 025 Discontin ued(Reord er) Active Problems Problem Noted Date Diagnosed Date [...] Encounters Date Type Department Care Team Description 01/31/2025 Results Follow-Up [facility] [address] [place] [address] Amanda Montiel MD IGP, APT HPV,RFX 16/18,45 01/31/2025 Orders Only [facility] [address] [place] [address] Diony Benz MD 01/29/2025 3:15 PM EDT Office Visit [facility] [address] [place] [address] Amanda Montiel MD Encounter for gynecological examination without abnormal finding (Primary Dx); Vaginitis and vulvovaginitis; Cervicitis and endocervicitis; Acute vaginitis; Bacterial vaginitis; Vaginal odor; Vaginal discharge; Vaginal irritation; Encounter for screening for cervical cancer; Hormone imbalance 01/29/2025 Travel 01/22/2025 Orders Only [facility] [address] [place] [address] Diony Sharma MD Acute pain of left knee 01/21/2025 Refill [facility] [address] [place] [address] Dalia Mar NP Acute pain of left knee 01/18/2025 Orders Only [facility] [address] [place] [address] Diony Benz MD 01/11/2025 1:30 PM EDT Office Visit [facility] [address] [place] [address] Dalia Mar NP Acute pain of left knee (Primary Dx) 01/11/2025 Travel 01/01/2025 [facility] [address] [place] [address] Kenyetta Dove MD Acquired hypothyroidism 12/20/2024 3:00 PM EDT Office Visit [facility] [address] [place] [address] Shilpa Menendez PA Bilateral lower extremity edema (Primary Dx); Hepatomegaly 12/20/2024 Travel 12/20/2024 Results Follow-Up [facility] [address] [place] [address] abdomen pelvis w IV contrast 12/19/2024 11:45 AM EDT Ancillary Procedure [facility] [address] [address] Vitamin D deficiency (Primary Dx) 12/19/2024 Travel 12/13/2024 10:45 AM EDT Office Visit [facility] [address] [place] [address] Diony Sharma MD Bilateral lower extremity edema (Primary Dx); Pulmonary hypertension (HCC); Dyspnea, unspecified type; Essential hypertension ; Medicare annual wellness visit, subsequent; ACP (advance care planning); Obstructive sleep apnea syndrome; Pain of upper abdomen 12/13/2024 Travel 12/10/2024 Results Follow-Up [facility] [address] [place] [address] Omid Stevens, POSTING MACHINE OPERATOR Rheumatoid factor, WILL, Protein electrophoresis, serum, FREE K+L LT CHAINS, QN, S 12/10/2024 Results Follow-Up [facility] [address] [place] [address] Omid Stevens, POSTING MACHINE OPERATOR Hemoglobin a1c with eag 12/07/2024 External Result Encounter [facility] External Department Unsolicited Omid Stevens, POSTING MACHINE OPERATOR 12/07/2024 External Result Encounter [facility] External Department Unsolicited Omid Stevens, POSTING MACHINE OPERATOR 12/07/2024 External Result Encounter [facility] External Department Unsolicited Omid Stevens, POSTING MACHINE OPERATOR 12/07/2024 External Result Encounter [facility] External Department Unsolicited Omid Stevens, POSTING MACHINE OPERATOR 12/07/2024 External Result Encounter [facility] External Department Unsolicited Omid Stevens, POSTING MACHINE OPERATOR 12/07/2024 External Result Encounter [facility] External Department Unsolicited Omid Stevens, POSTING MACHINE OPERATOR 12/07/2024 External Result Encounter [facility] External Department Unsolicited Omid Stevens, POSTING MACHINE OPERATOR 12/07/2024 External Result Encounter [facility] External Department Unsolicited Omid Stevens, POSTING MACHINE OPERATOR 12/06/2024 3:30 PM EDT [facility] [address] [place] [address] Omid Stevens, POSTING MACHINE OPERATOR Bilateral lower extremity edema (Primary Dx); Pulmonary hypertension (HCC); Dyspnea, unspecified type; Snoring; Anasarca; Essential hypertension ; History of anemia; Hypoalbuminemia; Hypoproteinemia (HCC) 12/06/2024 Travel 11/28/2024 [facility] [address] [place] [address] Faustino Zuñiga MA 11/21/2024 10:15 AM EDT Office Visit [facility] [address] [place] [address] Dalia Mar, POSTING MACHINE OPERATOR Bilateral lower extremity edema (Primary Dx); Essential hypertension ; Pulmonary hypertension (HCC); Cellulitis of right lower extremity; Snoring 11/21/2024 Results Follow-Up [facility] [address] [place] [address] Dalia Mar, POSTING MACHINE OPERATOR Basic metabolic panel, B-type natriuretic peptide, XR lumbar spine 2 or 3 views 11/21/2024 Travel 11/09/2024 External Result Encounter [facility] External Department Unsolicited Shilpa Menendez PA from Last 3 Months Immunizations Immunization Administration [...] Pressure 124/80 01/29/2025 3:19 PM EDT Pulse 65 01/11/2025 1:43 PM EDT Temperature - - Respiratory Rate 16 08/14/2024 10:45 AM EDT Oxygen Saturation 99% 01/11/2025 1:43 PM EDT Inhaled Oxygen Concentration - - Weight 149 kg (328 lb) 01/29/2025 3:19 PM EDT Height 170.2 cm (5' 7 ) 01/29/2025 3:19 PM EDT Body Mass Index 51.37 01/29/2025 3:19 PM EDT Plan of Treatment Upcoming Encounters Date Type Department Care Team (Late st Contact Info) Description 02/12/2025 11:10 AM EDT Office Visit [facility] [address] [place] [address] Kenyetta Dove MD [address] [place] [address] 02/12/2025 2:00 PM EDT Ancillary Procedure [facility] [address] [place] [address] 02/12/2025 2:45 PM EDT Office Visit [facility] [address] [place] [address] Amanda Montiel MD [address] [place] [address] Health Maintenance Due Date Last Done Comments CT Colonography 1975 Colonoscopy 1975 Colorectal Cancer Screening 1975 FIT-DNA 1975 FIT 1975 FOBT 1975 Sigmoidoscopy 1975 Pap Smear 04/04/2001 04/04/1998 Mammogram 01/19/2025 01/20/2024, 12/29/2022 Influenza Vaccine (#1) 2025 Medicare Annual Wellness (AWV) 01/29/2026 01/29/2025 , 12/13/2024, 12/31/2021 Cervical Cancer Screening 01/29/2030 HPV/Cotest 01/29/2030 01/29/2025, 11/07/2018 Procedures Procedure Name Priority Date/Time Associated Diagnosis [...] vaginitis Vaginal odor Vaginal discharge Vaginal irritation MRI KNEE RIGHT WO CONTRAS Routine 01/25/2025 9:01 AM EDT XR PELVIS 1-2 VIEWS Routine 01/08/2025 2 :[address] ABDOMEN PELVIS W IV CONTRAST Routine [...] ECHO (TTE) COMPLETE 11/09/2024 8:58 AM EDT MAMMO 3D,BILATERAL SCREENING MAMMOGRAM WITH TOMOSY Routine 01/20/2024 10:01 AM EDT from Last 3 Months or Most Recently Relevant to Health Maintenance Results * GENITAL MYCOPLASMAS CESAR, SWAB (01/29/2025 12:00 AM EDT) MYCOPLASMA GENITALIUM Negative Negative [facility] MYCOPLASMA HOMINIS Negative Negative [facility] UREAPLASMA SPP Negative Negative [facility] Vaginal Fluid 01/29/2025 01/29/2025 Narrative [facility] - 02/01/2025 3:07 PM EDT Test(s) 630391-Szkcnfvnxt hominis CESAR; 421419-Lrliedfmbr spp CESAR was developed and its performance characteristics determined by [facility]. It has not been cleared or approved by the Food and Drug Administration. Performed at: - [facility] [address], [place] [id number] Churn Driller Helper: Roger Kenny MD, Phone: [phone] Amanda Montiel MD LAB CYTOLOGY ORDERABLES Final Result [facility] * IGP, APT HPV,RFX 16/18,45 (01/29/2025 12:00 [...] 01/31/2025 5:07 PM EDT Performed at: - [address] [id number] Churn Driller Helper: Laila Connelly MD, Phone: [phone] Performed at: - [address] [id number] Churn Driller Helper: Laila Connelly MD, Phone: [phone] Specimen Comment: No. of containers..01 ThinPrep Vial Amanda Montiel MD LAB BLOOD ORDERABLES Final Res ult Performing Organization Address City/[facility]/ZIP Co de Phone Number [facility] * NuSwab Vaginitis Plus (VG+) (01/29/2025 12:00 [...] [facility] - 02/01/2025 3:07 PM EDT Test(s) 055696- Atopobium vaginae; 979190- BVAB 2; 626841- Megasphaera 1 was developed and its performance characteristics determined by [facility]. It has not been cleared or approved by the Food and Drug Administration. Test(s) 056349-Vdxuukx albicans, CESAR; 769104-Xyievcb glabrata, CESAR was developed and its performance characteristics determined by [employer]. It has not been cleared or approved by the Food and Drug Administration. Performed at: - [facility] [id number] Churn Driller Helper: Roger Kenny MD, Phone: [phone] Amanda Montiel MD LAB MICROBIOLOGY - GENERAL ORD ERABLES Final Result [facility] * MRI KNEE RIGHT WO CONTRAS (01/25/2025 9:01 AM EDT) Anatomical Region Laterality Modality Radiographic Quiana ging Diony Benz MD IMG XR PROCEDURES Final Resul t * XR pelvis 1 or 2 views (01/08/2025 2:41 PM EDT) Anatomical Region Laterality Modality Body, Pelvis Radiographic Quiana ging Diony Benz MD IMG XR PROCEDURES Final Resul t * CT abdomen pelvis w IV contrast [...] Thacker M.D. 12/07/2024 11:37 AM Dictation Location: [place] [address] Transcribed By: BOB 12/07/24 1137 Dictated By: Rizwana Thacker MD 12/07/24 1137 Signed By: <Electronically signed by MD Rizwana Thacker in OV> 12/07/24 1137 Narrative 12/07/2024 11:40 AM EDT [facility] Main [place] [id number] XRay Report Signed Patient: Lupe Pickard MR#: [id number] : 1975 Acct:[id number] Age/Sex: 49 / F ADM Date: 12/07/24 Loc: XD Room: Type: [facility] CLI Attending Dr: Omid Stevens RN, [...] Procedure Note Radiology, Radiologist, MD - 12/07/2024 [facility] [place] [address] XRay Report Signed Patient: Lupe Pickard MMR#: [id number] : 1975Acct:[id number] Age/Sex: 49 / FADM Date: 12/07/24 Loc: XD Room:Type: [facility] CLI Attending Dr: Omid Stevens RN, [...] Thacker M.D. 12/07/2024 11:37 AM Dictation Location: [place] [address] Transcribed By: BOB 12/07/24 1137 Dictated By: Rizwana Thacker MD 12/07/24 1137 Signed By: <Electronically signed by MD Rizwana Thacker in OV> 12/07/24 1137 us Omid Stevens POSTING MACHINE OPERATOR IMG XR PROCEDURES Final Resu lt * FREE K+L LT CHAINS, QN, S (12/07/2024 9:51 AM EDT) FREE KAPPA LIGHT CHAINS, S 12.3 3.3 - 19.4 mg/L 12/10/2024 2:36 PM EDT [facility] FREE LAMBDA LIGHT CHAINS, S 14.2 5.7 - 26.3 mg/L 12/10/2024 2:36 PM EDT [facility] KAPPA/LAMBDA RATIO, S 0.87 0.26 - 1.65 12/10/2024 2:36 PM EDT [facility] Comment: Performed at: [address] [id number] Churn Driller Helper: Ramirez Ca PhD, Phone: [phone] Other Topography unknown / Unknown 12/07/2024 9:51 AM EDT 12/07/2024 9:51 AM EDT us Omid Stevens POSTING MACHINE OPERATOR LAB BLOOD ORDERABLES Final R esult [facility] [address] [place] [address], * (ABNORMAL) Hemoglobin a1c with eag (12/07/2024 9:51 AM EDT) HEMOGLOBIN A1C 5.7(H) 4.3 - 5.6 % 12/07/2024 12:35 PM EDT [facility] Comment: Increased risk for diabetes: 5.7 - 6.4 diabetes: >6.4 glycemic control for adults with diabetes: <7.0 ESTIMATED AVERAGE GLUCOSE 117 mg/dL 12/07/2024 12:35 PM EDT [facility] Blood (Blood) 12/07/2024 9:5 1 AM EDT 12/07/2024 9:51 AM EDT us Omid Stevens POSTING MACHINE OPERATOR LAB BLOOD ORDERABLES Final R esult Performing Organization Address [facility]/ZIP Co de Phone Number [facility] [address] [place] [address], [facility] [address] [place] [phone] * Microalbumin / creatinine urine ratio (12/07/2024 9:51 AM EDT) MICROALBUMIN, URINE <0.7 0.0 - 1.8 mg/dL 12/07/2024 11:33 AM EDT [facility] CREATININE, URINE (RANDOM) 75.00 mg/dL 12/07/2024 11:30 AM EDT [facility] Comment:No reference range e stablished MICROALBUMIN/CR EATININE RATIO Test not performed 0.0 - 30.0 mg/g 12/07/2024 11:33 AM EDT [facility] Other 12/07/2024 9:51 AM EDT 12/07/2024 9:51 AM EDT Omid Stevens POSTING MACHINE OPERATOR LAB URINE ORDERABLES Final R esult Performing Organization Address City/[facility]/ZIP Co de Phone Number [facility] [address] [place] [address], [facility] [address] [place] [address] * Urinalysis with reflex microscopic (12/07/2024 9:51 AM EDT) COLOR,URINE Light-Yellow Yellow 12/07/2024 10:59 AM EDT [facility] APPEARANCE,URI NE Clear Clear 12/07/2024 10:59 AM [facility] SPECIFICY GRAVITY,URINE 1.023 1.001 - 1.030 12/07/2024 10:59 AM [facility] PH,URINE 7.0 5.0 - 9.0 12/07/2024 10:59 AM [facility] LEUKOCYTE ESTERASE,URINE Negative Negative 12/07/2024 10:59 AM [facility] NITRITE,URINE Negative Negative 12/07/2024 10:59 AM [facility] PROTEIN,URINE Negative Negative mg/dL 12/07/2024 10:59 AM [facility] GLUCOSE,URINE (UA) Normal Normal mg/dL 12/07/2024 10:59 AM [facility] KETONES,URINE Negative Negative 12/07/2024 10:59 AM [facility] UROBILINOGEN,U RINE Normal Normal mg/dL 12/07/2024 10:59 AM [facility] BILIRUBIN,URIN E Negative Negative 12/07/2024 10:59 AM [facility] OCCULT BLOOD,URINE Negative Negative 12/07/2024 10:59 AM [facility] RBC,URINE 1-2 0 - 4 [HPF] 12/07/2024 11:00 AM [facility] WBC,URINE 1-2 0 - 4 [HPF] 12/07/2024 11:00 AM [facility] SQUAMOUS EPITHELIAL CELL,URINE 1-2 0 - 2 [HPF] 12/07/2024 11:00 AM [facility] BACTERIA,URINE None Seen None Seen [HPF] 12/07/2024 11:00 AM [facility] HYALINE CASTS,URINE None 0 - 8 [LPF] 12/07/2024 11:00 AM [facility] MUCUS,URINE Rare [LPF] 12/07/2024 11:00 AM [facility] Other 12/07/2024 9:51 AM EDT 12/07/2024 9:51 AM EDT [facility] 12/07/2024 11:00 AM EDT Name Collection Type:: Clean-Voided Midstream Omid Stevens POSTING MACHINE OPERATOR LAB URINE ORDERABLES Final R esult Performing Organization Address City/[facility]/ZIP Co de Phone Number [address] [address], [facility] [address] [place] [phone] * (ABNORMAL) Sedimentation rate, automated (12/07/2024 9:51 AM EDT) [facility] ERYTHROCYTE SEDIMENTATION RATE 22(H) 0 - 19 12/07/2024 11:25 AM EDT [facility] Blood (Blood) 12/07/2024 9:5 1 AM EDT 12/07/2024 9:51 AM EDT Omid Stevens POSTING MACHINE OPERATOR LAB BLOOD ORDERABLES Final R esult Performing Organization Address [facility] Co de Phone Number [place] [phone], [place] [phone] * Rheumatoid factor (12/07/2024 9:51 AM EDT) [facility] RHEUMATOID FACTOR 10.4 <14.0 12/08/2024 4:36 AM EDT [facility] Comment: Performed at: - [facility] [id number] Churn Driller Helper: Ramirez Ca PhD, Phone: [phone] Other Topography unknown / Unknown 12/07/2024 9:51 AM EDT 12/07/2024 9:51 AM EDT Omid Stevens POSTING MACHINE OPERATOR LAB BLOOD ORDERABLES Final R esult Performing Organization Address City/[facility] Co de Phone Number [place] [phone], * (ABNORMAL) High sensitivity CRP (12/07/2024 9:51 AM EDT) [facility] HIGH SENSITIVE CRP 15.7(H) 0.0 - 0.9 mg/L 12/07/2024 11:19 AM EDT [facility] Comment: Cardiovascular Risk Classification (AHA/CDC) hsCRP [...] EDT 12/07/2024 9:51 AM EDT Omid Stevens LAB BLOOD ORDERABLES Final R esult Performing Organization Address [facility] [place] [address], [place] [phone] * WILL (12/07/2024 9:51 AM EDT) ANTINUCLEAR ABS, IFA Negative . 12/10/2024 9:08 AM EDT [facility] Comment: Negative <1:80 Borderline 1:80 Positive >1:80 ICAP nomenclature: AC-0 For more information about Hep-2 cell patterns use ANApatterns.org, the official website for the International Consensus on Antinuclear Antibody (WILL) Patterns (ICAP). Performed at: [address] [id number] Churn Driller Helper: Ramirez Ca PhD, Phone: [phone] Other Topography unknown / Unknown 12/07/2024 9:51 AM EDT 12/07/2024 9:51 AM EDT Omid Stevens POSTING MACHINE OPERATOR LAB BLOOD ORDERABLES Final R esult Performing Organization Address [facility] Co de Phone Number [place] [phone], * Protein electrophoresis, serum (12/07/2024 9:51 AM EDT) TOTAL PROTEIN, SERUM 6.4 6.0 - 8.5 g/dL 12/10/2024 2:36 PM EDT [facility] ALBUMIN, SERUM 3.3 2.9 - 4.4 g/dL 12/10/2024 2:36 PM EDT [facility] ZVFYX-6-OMSEOFIN 0.2 0.0 - 0.4 g/dL 12/10/2024 2:36 PM EDT [facility] CCUMC-2-NGOLVNDV 0.9 0.4 - 1.0 g/dL 12/10/2024 2:36 PM EDT [facility] BETA GLOBULIN 1.1 0.7 - 1.3 g/dL 12/10/2024 2:36 PM EDT [facility] GAMMA GLOBULIN 0.9 0.4 - 1.8 g/dL 12/10/2024 2:36 PM EDT [facility] M-SPIKE Not Observed Not Observed g/dL 12/10/2024 2:36 PM EDT [facility] GLOBULIN, TOTAL 3.1 2.2 - 3.9 g/dL 12/10/2024 2:36 PM EDT [facility] A/G RATIO 1.1 0.7 - 1.7 12/10/2024 2:36 PM EDT [facility] SPE-NOTE Comment . 12/10/2024 2:36 PM EDT [facility] Comment: Protein electrophoresis scan will follow via computer, mail, or needleworker delivery. Other Topography unknown / Unknown 12/07/2024 9:51 AM EDT 12/07/2024 9:51 AM EDT us Omid Stevens POSTING MACHINE OPERATOR LAB BLOOD ORDERABLES Final R esult [facility] [address] [place] [address], * Magnesium (12/07/2024 9:51 AM EDT) Pathologist [facility] MAGNESIUM 1.9 1.9 - 2.7 mg/dL 12/07/2024 11:21 AM EDT [facility] Other Topography unknown / Unknown 12/07/2024 9:51 AM EDT 12/07/2024 9:51 AM EDT us Omid Stevens POSTING MACHINE OPERATOR LAB BLOOD ORDERABLES Final R esult [facility] [address] [place] [address], [facility] [address] [place] [address] * (ABNORMAL) Comprehensive metabolic panel (12/07/2024 9:51 AM EDT) Glucose 109(H) 70 - 100 mg/dL 12/07/2024 11:21 AM EDT [facility] Comment: Random Glucose Reference Range is dependent on time and content of last meal. Glucose of more than 200 mg/dL in a nonstressed, ambulatory subject supports the diagnosis of Diabetes Mellitus. ADA recommended reference range BUN 12 7 - 25 mg/dL 12/07/2024 11:21 AM EDT [facility] CREATININE 0.50(L) 0.60 - 1.20 mg/dL 12/07/2024 11:21 AM EDT [facility] ESTIMATED GFR >60.0 12/07/2024 11:21 AM EDT [facility] Sodium 139 136 - 145 mmol/L 12/07/2024 11:21 AM EDT [facility] Potassium, Bld 4.2 3.5 - 5.1 mmol/L 12/07/2024 11:21 AM EDT [facility] Chloride 101 98 - 107 mmol/L 12/07/2024 11:21 AM EDT [facility] Carbon Dioxide 31.0 21.0 - 31.0 mmol/L 12/07/2024 11:21 AM EDT [facility] Anion Gap 11.2 6.0 - 15.0 12/07/2024 11:21 AM EDT [facility] Calcium 9.0 8.6 - 10.3 mg/dL 12/07/2024 11:21 AM EDT [facility] TOTAL PROTEIN 6.5 6.4 - 8.9 g/dL 12/07/2024 11:21 AM EDT [facility] ALBUMIN LEVEL 3.8 3.5 - 5.7 g/dL 12/07/2024 11:21 AM EDT [facility] GLOBULIN 2.7 g/dL 12/07/2024 11:21 AM EDT [facility] ALBUMIN/GLOBULIN RATIO 1.4 12/07/2024 11:21 AM EDT [facility] BILIRUBIN,TOTAL 0.4 0.3 - 1.0 mg/dL 12/07/2024 11:21 AM EDT [facility] ASPARTATE AMINO TRANSFERASE 20 13 - 39 U/L 12/07/2024 11:21 AM EDT [facility] ALANINE AMINOTRANSFERASE 29 7 - 52 U/L 12/07/2024 11:21 AM EDT [facility] ALKALINE PHOSPHATASE 56 34 - 104 U/L 12/07/2024 11:21 AM EDT [facility] Other Topography unknown / Unknown 12/07/2024 9:51 AM EDT 12/07/2024 9:51 AM EDT us Omid Stevens POSTING MACHINE OPERATOR LAB BLOOD ORDERABLES Final R esult Performing Organization Address City/State/[facility] Co de Phone Number [facility] [address] [place] [phone], [facility] [address] [place] [phone] * XR lumbar spine 2 or 3 views (11/29/2024 2:02 PM EDT) Anatomical Region Laterality Modality Spine, L-spine Radiographic Quiana ging 11/29/2024 2:02 PM EDT Impressions 11/29/2024 2:06 PM EDT Degenerative changes notably lower lumbar spine. Impression dictated by: Larry Perez M.D. 11/29/2024 2:03 PM Dictation Location: [place] [address] Transcribed By: [facility] 11/29/24 1403 Dictated By: Larry Perez MD 11/29/24 140 Signed By: <Electronically signed by Larry Perez MD in OV> 11/29/24 1403 Narrative 11/29/2024 2:06 PM EDT [facility] [address] [place] [address] [place] [phone] XRay Report Signed Patient: Lupe Pickard MR#: [id number] : 1975 Acct:[id number] Age/Sex: 49 / F ADM Date: 11/29/24 Loc: XD Room: Type: [facility] CLI Attending Dr: Dalia Mar POSTING MACHINE OPERATOR-C Copies to: Dalia Mar NP Ordering Provider: [...] Procedure Note Radiology, Radiologist, MD - 11/29/2024 [facility] [place] [address] XRay Report Signed Patient: Lupe Pickard MMR#: [id number] : 1975Acct:[id number] Age/Sex: 49 / FADM Date: 11/29/24 Loc: XD Room:[facility] Attending Dr: Dalia Mar POSTING MACHINE OPERATOR-C Copies to: Dalia Mar NP Ordering Provider: [...] Perez M.D. 11/29/2024 2:03 PM Dictation Location: [place] [address] Transcribed By: BOB 11/29/24 1403 Dictated By: Larry Perez MD 11/29/24 1402 Signed By: <Electronically signed by Larry Perez MD in [place]> 11/29/24 1403 Dalia Mar POSTING MACHINE OPERATOR IMG XR PROCEDURES Final Resul t * T3, free (11/29/2024 9:06 AM EDT) Blood Venous blood specimen / Unknown Kenyetta Dove MD LAB BLOOD ORDERABLES Final Re sult Performing Organization Address [facility] de Phone Number [facility] * TSH (11/27/2024 3:08 PM EDT) Blood Venous blood specimen / Unknown Kenyetta Dove MD LAB BLOOD ORDERABLES Final Re sult Performing Organization Address [facility] Co de Phone Number [facility] * T4, free (11/27/2024 3:08 PM EDT) Blood Venous blood specimen / Unknown Kenyetta Dove MD LAB BLOOD ORDERABLES Final Re sult Performing Organization Address [facility] de Phone Number [facility] * (ABNORMAL) Basic metabolic panel (11/27/2024 1:05 PM EDT) Only the most recent of2 resultswithin the time period is included. Glucose 72 70 - 100 mg/dL 11/27/2024 2:18 PM EDT [facility] Comment: Random Glucose Reference Range is dependent on time and content of last meal. Glucose of more than 200 mg/dL in a nonstressed, ambulatory subject supports the diagnosis of Diabetes Mellitus. ADA recommended reference range BUN 9 7 - 25 mg/dL 11/27/2024 2:18 PM EDT [facility] CREATININE 0.53(L) 0.60 - 1.20 mg/dL 11/27/2024 2:18 PM EDT [facility] ESTIMATED GFR >60.0 11/27/2024 2:18 PM EDT [facility] Sodium 139 136 - 145 mmol/L 11/27/2024 2:18 PM EDT [facility] Potassium, Bld 4.2 3.5 - 5.1 mmol/L 11/27/2024 2:18 PM EDT [facility] Chloride 101 98 - 107 mmol/L 11/27/2024 2:18 PM EDT [facility] Carbon Dioxide 31.9(H) 21.0 - 31.0 mmol/L 11/27/2024 2:18 PM EDT [facility] Anion Gap 10.3 6.0 - 15.0 11/27/2024 2:18 PM EDT [facility] Calcium 8.6 8.6 - 10.3 mg/dL 11/27/2024 2:18 PM EDT [facility] Other Topography unknown / Unknown 11/27/2024 1:05 PM EDT 11/27/2024 1:05 PM EDT Diony Sharma MD LAB BLOOD ORDERABLES Final Resu lt Performing Organization Address City/[facility]/ZIP Co de Phone Number [facility] [address] [place] [address], [place] [phone] * B-type natriuretic peptide (11/21/2024 11:44 AM EDT) B-TYPE NATRIURETIC PEPTIDE 54.0 5 - 100 pg/mL 11/21/2024 12:35 PM EDT [facility] Other Venous blood specimen / Unknown 11/21/2024 11:44 AM EDT 11/21/2024 11:44 AM EDT Dalia Mar POSTING MACHINE OPERATOR LAB BLOOD ORDERABLES Final Re sult Performing Organization Address City/[facility]/ZIP Co de Phone Number [place] [phone], [facility] [address] [place] [address] * Transthoracic echo (TTE) complete (11/09/2024 8:58 AM EDT) Anatomical Region Laterality Modality Heart Ultrasound 11/09/2024 8:58 AM EDT Narrative 11/09/2024 4:45 PM EDT [facility] Main [place] [address] [place] [address] Echocardiogram Signed Patient: Lupe Pickard MR#: [id number] : 1975 Acct:[id number] Age/Sex: 49 / F ADM Date: 11/09/24 Loc: Room: Type: [facility] Attending Dr: Shilpa Menendez PA-C Ordering Provider: Shilpa Menendez PA-C Date of Service: 11/09/24/ ECH/ECH echo transthoracic: EDEMA, SOB Copies to: Selina Valverde MD, [facility] Shilpa Menendez PA-C BSA: 2.4 m2 BP: [...] mmHg RAP systole: 5.0 mmHg Transcribed By: SCJulito Performed At: 11/09/24 0858 Signed By: Selina Valverde MD, [facility] 11/09/24 1644 Procedure Note Selina Valverde MD - 11/09/2024 [facility] Main [place] [address] [place] [address] Echocardiogram Signed Patient: Lupe Pickard MMR#: [id number] : 1975Acct:[id number] Age/Sex: 49 / FADM Date: 11/09/24 Loc: Room:Type: [facility] Attending Dr: Shilpa Menendez PA-C Ordering Provider: Shilpa Menendez PA-C Date of Service: 11/09/24/ ECH/ECH echo transthoracic: EDEMA, SOB Copies to: Selina Valverde MD, [facility] Shilpa Menendez PA-C BSA: 2.4 [...] 11/09/24 0858 Signed By: Selina Valverde MD, [facility] 11/09/24 1644 Shilpa SALAS CV ECHO PROCEDURES Final Res ult * MAMMO 3D,BILATERAL SCREENING MAMMOGRAM WITH TOMOSY (01/20/2024 10:01 AM EDT) Anatomical Region Laterality Modality Radiographic Quiana ging Unknown Practice A IMG XR PROCEDURES Final Resul t from Last 3 Months or Most Recently Relevant to Health Maintenance Insurance MEDICARE MEDICAID [place] Care Teams Subway Operator Relationship Specialty Start Date End Date Diony Sharma MD [address] [place] [address] PCP - General Internal Medicine 01/24/24 Kenyetta Dove MD [address] [place] [address] Referring Physician Endocrinology 08/01/24 Simón Ozuna MD [address] [place] [address] Referring Physician Urology 08/01/24 Amanda Montiel MD [address] [place] [address] Obstetrics and Gynecology 08/01/24 Krish Hodge MD [address] [place] [address] Referring Physician Ophthalmology 08/01/24 Beny Hoskins MD [address] [place] [address] [address] [place] [address] Referring Physician Gastroenterology 08/01/24 [facility] Mental Health 08/01/24
--- OUTSIDE RECORDS SUMMARY | 2025-02-06 11:29 | XMS_ITS | Encounter Summary ---
Author Organization [facility] Address [address] [place] [address] Care Team Providers Care Radio Installer Automobile Name Role Phone Diony Sharma MD Primary Care Provider [phone] Kenyetta Dove MD Unavailable [phone] Simón Ozuna MD Unavailable [phone] Amanda Montiel MD Unavailable [phone] Krish Hodge MD Unavailable [phone] Beny Hoskins MD Unavailable [phone] Encounter Details Date Type Department Care Team (Latest Contact Info) Description 01/29/2025 Travel Social History Tobacco Use Types Packs/Day [...] Department Care Team ( Contact Info) Description 02/12/2025 11:10 AM EDT Office Visit [facility] [place] [facility] [address] [place] [address] Kenyetta Dove MD [address] [place] [address] 02/12/2025 2:00 PM EDT Ancillary Procedure [facility] [address] [place] [address] 02/12/2025 2:45 PM EDT Office Visit [facility] [place] [facility]TAL[facility] [address] [place] [address] Amanda Montiel MD [address] [place] [address] documented as of this encounter Visit Diagnoses Not on filedocumented in this encounter Care Teams Radio Installer Automobile Relationship Specialty Start Date End Date Diony Sharma MD [address] [place] [address] PCP - General Internal Medicine 01/24/24 Kenyetta Dove MD [address] [place] [address] Referring Physician Endocrinology 08/01/24 Simón Ozuna MD [address] [place] [address] Referring Physician Urology 08/01/24 Amanda Montiel MD [address] [place] [address] Obstetrics and Gynecology 08/01/24 Krish Hodge MD [address] [place] [address] Referring Physician Ophthalmology 08/01/24 Beny Hoskins MD [address] [place] [address] Referring Physician Gastroenterology 08/01/24 [facility] 08/01/24 documented as of this encounter
--- OUTSIDE RECORDS SUMMARY | 2025-02-06 11:29 | XMS_ITS | Encounter Summary ---
Author Organization [facility] Address [address] [place] [address] Care Team Providers Care Barber Or Beauty Shop Manager Name Role Phone Diony Sharma MD Primary Care Provider Kenyetta Dove MD Unavailable [phone] Simón Ozuna MD Unavailable [phone] Amanda Montiel MD Unavailable [phone] Krish Hodge MD Unavailable [phone] Beny Hoskins MD Unavailable Encounter Details Date Type Department Care Team (Late st Contact Info) Description 01/18/2025 Orders Only [facility] Internal Medicine [address] [place] [address] Diony Benz MD [address] [place] [address] Social History Tobacco Use Types [...] [facility] [address] [place] [address] Kenyetta Dove MD [address] [place] [address] 02/12/2025 2:00 PM EDT Ancillary Procedure [facility] [address] [place] [address] 02/12/2025 2:45 PM EDT Office Visit [facility]A [place] KELVINN [address] [place] [address] Amanda Montiel MD [address] [place] [address] documented as of this encounter Procedures Procedure Name Priority Date/Time Associated Diagnosis Comments XR PELVIS 1-2 VIEWS Routine 01/08/2025 2:41 PM EDT documented in this encounter Results * XR pelvis 1 or 2 views (01/08/2025 2:41 PM EDT) Anatomical Region Laterality Modality Body, Pelvis Radiographic Quiana ging us Diony Benz MD IMG XR PROCEDURES Final Resul t documented in this encounter Visit Diagnoses Not on filedocumented in this encounter Care Teams Barber Or Beauty Shop Manager Relationship Specialty Start Date End Date Diony Sharma MD [address] [place] [address] PCP - General Internal Medicine 01/24/24 Kenyetta Dove MD [address] [place] [address] Referring Physician Endocrinology 08/01/24 Simón Ozuna MD [address] [place] [address] Referring Physician Urology 08/01/24 Amanda Montiel MD [address] [place] [address] Obstetrics and Gynecology 08/01/24 Krish Hodge MD [address] [place] [address] Referring Physician Ophthalmology 08/01/24 Beny Hoskins MD [address] [place] [address] [address] [place] [address] Referring Physician Gastroenterology 08/01/24 [facility] Mental Health 08/01/24 documented as of this encounter
--- OUTSIDE RECORDS SUMMARY | 2025-02-06 11:29 | XMS_ITS | Encounter Summary ---
Author Organization [facility] Address [address] [place] [address] Care Team Providers Care Turbine Assembler Name Role Phone Simón Davidson MD Primary Care Provider [phone] Diony Sharma MD Primary Care Provider [phone] Kenyetta Dove MD Unavailable [phone] Simón Ozuna MD Unavailable [phone] Amanda Montiel MD Unavailable [phone] Krish Hodge MD Unavailable [phone] Beny Hoskins MD Unavailable [phone] Encounter Details Date Type Department Care Team (Late st Contact Info) Description 12/29/2022 External Result Encounter [facility] External Department Unsolicited Amanda Montiel MD [address] [place] [address] Social History Tobacco Use Types Packs/Day Years [...] AM EDT Office Visit [facility] [place] [facility] [address] [place] [address] Kenyetta Dove MD [address] [place] [address] 02/12/2025 2:00 PM EDT Ancillary Procedure [facility] [place] [facility] [address] [place] [address] 02/12/2025 2:45 PM EDT Office Visit [facility] [place] [facility] [address] [place] [address] Amanda Montiel MD [address] [place] [address] documented as of this encounter Procedures [...] Neff Jr., D.OJaycee12/29/2022 2:57 PM Dictation Location: [facility] Transcribed By: [facility] 12/29/221456 Dictated By: Bob Neff Jr, DO 12/29/221456 Signed By: <Electronically signed by Bob Neff Jr, DO in [place]> 12/29/221456 Narrative 12/30/2022 7:28 AM EDT [facility] Main [address] [address] Mammography Report Signed Patient: Lupe Pickard MR#: [id number] : 1975 Acct:[id number] Age/Sex: 47 / F ADM Date: 12/29/22 Loc: [place] Room: Type: [facility] CLI Attending Dr: Amanda Montile MD Copies to: NO FAMILY PHYSICIAN JOVANY Horan Ordering Provider: JOVANY Horan Date of Service: [...] mammo BI w/CAD Procedure Note Radiology, Radiologist, MD - 12/30/2022 [facility] Main [place] [address] [place] [address] Mammography Report Signed Patient: Lupe Pickard MMR#: [id number] : 1975Acct:[id number] Age/Sex: 47 / FADM Date: 12/29/22 Loc: [place] Room:Type: [facility] CLI Attending Dr: Amanda Montiel MD Copies to: NO FAMILY PHYSICIAN JOVANY Horan Ordering Provider: JOVANY Horan Date of Service: [...] Neff Jr., D.OJaycee12/29/2022 2:57 PM Dictation Location: [facility] Transcribed By: [facility] 12/29/22 1457 Dictated By: Bob Neff Jr, DO 12/29/22 1457 Signed By: <Electronically signed by Bob Neff Jr, DO inOV> 12/29/22 1457 us Amanda Montiel MD IMG BI PROCEDURES Final Result documented in this encounter Visit Diagnoses Not on filedocumented in this encounter Care Teams Turbine Assembler Relationship Specialty Start Date End Date Simón Davidson MD [address] [place] [address] PCP - General Steel Layout Worker 01/16/24 01/23/24 Diony Sharma MD [address] [place] [address] PCP - General Internal Medicine 01/24/24 Kenyetta Dove MD [address] [place] [address] Referring Physician Endocrinology 08/01/24 Simón Ozuna MD [address] [place] [address] Referring Physician Urology 08/01/24 Amanda Montiel MD [address] [place] [address] Obstetrics and Gynecology 08/01/24 Krish Hodge MD [facility] [place] [address] Referring Physician Ophthalmology 08/01/24 Beny Hoskins MD [address] [place] [address] [address] [place] [address] Referring Physician Gastroenterology 08/01/24 [facility] Mental Health 08/01/24 documented as of this encounter
--- OUTSIDE RECORDS SUMMARY | 2025-02-06 11:30 | XMS_ITS | Encounter Summary ---
Author Organization [facility] Address [address] [place] [address] Care Team Providers Care Technical Sales Representative Name Role Phone Diony Sharma MD Primary Care Provider [phone] Kenyetta Dove MD Unavailable [phone] Simón Ozuna MD Unavailable [phone] Amanda Montiel MD Unavailable [phone] Krish Hodge MD Unavailable [phone] Beny Hoskins MD Unavailable [phone] Encounter Details Date Type Department Care Team (Late st Contact Info) Description 11/09/2024 External Result Encounter NOMS External Department Unsolicited Shilpa Menendez, [place] [address] [place] [address] Social History Tobacco Use Types Packs/Day Years [...] Endocrinology [address] [place] [address] Kenyetta Dove MD [address] [place] [address] 02/12/2025 2:00 PM EDT Ancillary Procedure [facility] [place] [facility] [address] [place] [address] 02/12/2025 2:45 PM EDT Office Visit [facility] [place] [facility] [address] [place] [address] Amanda Montiel MD [address] [place] [address] documented as of this encounter Procedures Procedure Name Priority Date/Time Associated Diagnosis Comments TRANSTHORACIC ECHO (TTE) COMPLETE 11/09/2024 8:58 AM EDT documented in this encounter Results * Transthoracic echo (TTE) complete (11/09/2024 8:58 AM EDT) Anatomical Region Laterality Modality Heart Ultrasound 11/09/2024 8:58 AM EDT Narrative 11/09/2024 4:45 PM EDT [facility] Main [address] [address] Echocardiogram Signed Patient: Lupe Pickard MR#: [id number] : 1975 Acct:[id number] Age/Sex: 49 / F ADM Date: 11/09/24 Loc: Room: Type: [facility] Attending Dr: Shilpa Menendez PA-C Ordering Provider: Shilpa Menendez PA-C Date of Service: 11/09/24/ ECH/ECH echo transthoracic: EDEMA, SOB Copies to: Selina Valverde MD, [facility] Shilpa Loren BHAVIN Menendez BSA: 2.4 m2 BP: 141/89 mmHg HR: [...] 11/09/24 0858 Signed By: Selina Valverde MD, [facility] 11/09/24 1644 Procedure Note Selina Valverde MD - 11/09/2024 [facility] [address] Echocardiogram Signed Patient: Lupe Pickard MMR#: [id number] : 1975Acct:[id number] Age/Sex: 49 / FADM Date: 11/09/24 Loc: Room:Type: [facility] Attending Dr: Shilpa Menendez PA-C Ordering Provider: Shilpa Menendez PA-C Date of Service: 11/09/24/ ECH/ECH echo transthoracic: EDEMA, SOB Copies to: Selina Valverde MD, [facility] Shilpa Pimentel BHAVIN Menendez BSA: 2.4 m2 BP: 141/89 mmHg HR: [...] 11/09/24 0858 Signed By: Selina Valverde MD, [facility] 11/09/24 1644 [facility] Shon SALAS CV ECHO PROCEDURES Final Res ult documented in this encounter Visit Diagnoses Not on filedocumented in this encounter Care Teams Technical Sales Representative Relationship Specialty Start Date End Date Diony Sharma MD [address] [place] [address] PCP - General Internal Medicine 01/24/24 Kenyetta Dove MD [address] [place] [address] Referring Physician Endocrinology 08/01/24 Simón Ozuna MD [address] [place] [address] Referring Physician Urology 08/01/24 Amanda Montiel MD [address] [place] [address] Obstetrics and Gynecology 08/01/24 Krish Hodge MD [address] [place] [address] Referring Physician Ophthalmology 08/01/24 Beny Hoskins MD [address] [place] [address] [address] [place] [address] Referring Physician Gastroenterology 08/01/24 [facility] Mental Health 08/01/24 documented as of this encounter
--- OUTSIDE RECORDS SUMMARY | 2025-02-06 11:30 | XMS_ITS | Encounter Summary ---
Author Organization [facility] Address [address] [place] [address] Care Team Providers Care Customer Retention Representative Name Role Phone Diony Sharma MD Primary Care Provider [phone] Kenyetta Dove MD Unavailable [phone] Simón Ozuna MD Unavailable [phone] Amanda Montiel MD Unavailable [phone] Krish Hodge MD Unavailable [phone] Beny Hoskins MD Unavailable [phone] Encounter Details Date Type Department Care Team (Late st Contact Info) Description 10/16/2024 Telephone [facility] [place] [facility] [address] [place] [address] Amanda Montiel MD [address] [place] [address] Social History Tobacco Use Types Packs/Day Years Used Date Smoking Tobacco: Every Day Cigarettes Smokeless Tobacco: Never Comments:Pt smoked 1/2 ppd s chtaa age [age] years old. Alcohol Use Standard [...] Endocrinology [address] [place] [address] Kenyetta Dove MD [address] [place] [address] 02/12/2025 2:00 PM EDT Ancillary Procedure [facility] [address] [place] [address] 02/12/2025 2:45 PM EDT Office Visit [facility] [place] [facility] [address] [place] [address] Amanda Montiel MD [address] [place] [address] documented as of this encounter Visit Diagnoses Diagnosis Acute vaginitis- Primary Unspecified vaginitis and vulvovaginitis documented in this encounter Care Teams Customer Retention Representative Relationship Specialty Start Date End Date Diony Sharma MD [address] [place] [address] PCP - General Internal Medicine 01/24/24 Kenyetta Dove MD [address] [place] [address] Referring Physician Endocrinology 08/01/24 Simón Ozuna MD [address] [place] [address] Referring Physician Urology 08/01/24 Amanda Montiel MD [address] [place] [address] Obstetrics and Gynecology 08/01/24 Krish Hodge MD [address] [place] [address] Referring Physician Ophthalmology 08/01/24 Beny Hoskins MD [address] [place] [address] [address] [place] [address] Referring Physician Gastroenterology 08/01/24 [facility] Mental Health 08/01/24 documented as of this encounter
--- OUTSIDE RECORDS SUMMARY | 2025-02-06 11:30 | XMS_ITS | Encounter Summary ---
Author Organization [facility] Address [facility] [place] [address] Care Team Providers Care Adult Neurologist Name Role Phone Simón Davidson DO Unavailable [phone] Source Comments In the event this information is protected by the Federal Confidentiality of Alcohol and Drug AbusePatient Records regulations: The Federal rules restrict any use of the information to criminally investigate or prosecute any alcohol or drug abuse patient.[facility] Encounter Details Date Type Department Care Team (Late st Contact Info) Description 07/07/2023 Get Medical Advice Rheumatology [address] [facility] [place] [address] Stephie Brambila MD [address] [place] [address] Waiting for response Social History [...] is lower risk 4 05/17/2023 Data from: https://www.neighborhoodatlas.medicine.[facility].edu/. Last address used for calculation [...] on filedocumented in this encounter Care Teams Adult Neurologist Relationship Specialty Start Date End Date Simón Davidson DO Referring Family Medicine 11/22/22 documented as of this encounter
--- OUTSIDE RECORDS SUMMARY | 2025-02-06 11:30 | XMS_ITS | Clinical Summary ---
Author Organization [facility] Address [address] [place] [address] Care Team Providers Care Product/Industry Consultant Name Role Phone Simón Davidson DO Unavailable [phone] Allergies No known active allergies Medications Glucosamine-Cho [...] is lower risk 4 05/17/2023 Data from: https://www.neighborhoodatlas.medicine.[facility].edu/. Last address used for calculation [address] 05/17/2023 Comments No Sex and [...] METABOLIC PANEL (05/19/2023 8:07 AM EST) Pathologist [facility] Protein, Total 6.7 6.3 - 8.0 g/dL 05/19/2023 8:43 AM EST [facility] Albumin 4.1 3.9 - 4.9 g/dL 05/19/2023 8:43 AM EST [facility] Calcium, Total 9.2 8.5 - 10.2 mg/dL 05/19/2023 8:43 AM EST [facility] Bilirubin, Total 0.2 0.2 - 1.3 mg/dL 05/19/2023 8:43 AM EST [facility] Alkaline Phosphatase 62 34 - 123 U/L 05/19/2023 8:43 AM EST [facility] AST 10(L) 13 - 35 U/L 05/19/2023 8:43 AM EST [facility] ALT 19 7 - 38 U/L 05/19/2023 8:43 AM EST [facility] Glucose 105(H) 74 - 99 mg/dL 05/19/2023 8:43 AM EST [facility] Comment: The [place] Diabetes Association (ADA) provides guidance for cutoff [...] Standards of Medical Care in Diabetes 2016, [place] Diabetes Association. Diabetes Care. 2016.39(Suppl 1). BUN 17 7 - 21 mg/dL 05/19/2023 8:43 AM EST [facility] Creatinine 0.65 0.58 - 0.96 mg/dL 05/19/2023 8:43 AM [facility] Sodium 142 136 - 144 mmol/L 05/19/2023 8:43 AM [facility] Potassium 4.3 3.7 - 5.1 mmol/L 05/19/2023 8:43 AM [facility] Chloride 106(H) 97 - 105 mmol/L 05/19/2023 8:43 AM [facility] CO2 27 22 - 30 mmol/L 05/19/2023 8:43 AM [facility] Anion Gap 9 9 - 18 mmol/L 05/19/2023 8:43 AM [facility] Estimated Glomerular Filtration Rate 110 >=60 mL/min/1. 73m 05/19/2023 8:43 AM [facility] Comment:Estimated Glomerular Filtration Rate (eGFR) [...] Result [facility] [address] [place] [address] from Last 3 Months or Most Recently Relevant to Health Maintenance Insurance MEDICARE MEDICAID [place] Care Teams Product/Industry Consultant Relationship Specialty Start Date End Date Smión Davidson DO Referring Family Medicine 11/22/22
--- OUTSIDE RECORDS SUMMARY | 2025-02-06 11:30 | XMS_ITS | Encounter Summary ---
Author Organization [facility] Address [address] [place] [address] Care Team Providers Care Meat Inspector Name Role Phone Diony Sharma MD Primary Care Provider [phone] Kenyetta Dove MD Unavailable [phone] Simón Ozuna MD Unavailable [phone] Amanda Montiel MD Unavailable [phone] Krish Hodge MD Unavailable [phone] Beny Hoskins MD Unavailable [phone] Encounter Details Date Type Department Care Team (Late st Contact Info) Description 01/31/2025 Orders Only [facility] Internal Medicine [address] [place] [address] Diony Benz MD [address] [place] [address] Social History Tobacco Use Types [...] [facility] [address] [place] [id number] Kenyetta Dove MD [address] [place] [address] 02/12/2025 2:00 PM EDT Ancillary Procedure [facility] [place] [facility] [address] [place] [address] 02/12/2025 2:45 PM EDT Office Visit [facility]THA [place] [facility] [address] [place] [address] Amanda Montiel MD [address] [place], [place] [id number] documented as of this encounter Procedures Procedure Name Priority Date/Time Associated Diagnosis Comments MRI KNEE RIGHT WO CONTRAS Routine 01/25/2025 9:01 AM EDT documented in this encounter Results * MRI KNEE RIGHT WO CONTRAS (01/25/2025 9:01 AM EDT) Anatomical Region Laterality Modality Radiographic Quiana ging us Diony Benz MD IMG XR PROCEDURES Final Resul t documented in this encounter Visit Diagnoses Not on filedocumented in this encounter Care Teams Meat Inspector Relationship Specialty Start Date End Date Diony Sharma MD [address] [place] [address] PCP - General Internal Medicine 01/24/24 Kenyetta Dove MD [address] [place] [address] Referring Physician Endocrinology 08/01/24 Simón Ozuna MD [address] [place] [address] Referring Physician Urology 08/01/24 Amanda Montiel MD [address] [place] [address] Obstetrics and Gynecology 08/01/24 Krish Hodge MD [address] [place] [address] Referring Physician Ophthalmology 08/01/24 Beny Hoskins MD [address] [place] [address] [address] [place] [address] Referring Physician Gastroenterology 08/01/24 [facility] Mental Health 08/01/24 documented as of this encounter
--- OUTSIDE RECORDS SUMMARY | 2025-02-06 11:30 | XMS_ITS | Clinical Summary ---
Author Organization [facility] Address [address] [place] [address] Phone Care Team Providers Care Client Service Associate Name Role Phone StuartSimón Nils Primary Care [...] 5 season) 2025 Influenza Vaccine (#1) 2025 Zoster Vaccines (1 [...] PART A AND B MEDICAID Care Teams Client Service Associate Relationship Specialty Start Date End Date Simón Davidson DO [address] [place] [place] [id number] PCP - General 10/21/17
--- OUTSIDE RECORDS SUMMARY | 2025-02-06 11:30 | XMS_ITS | Encounter Summary ---
Author Organization [facility] Address [address] [place] [address] Phone Care Team Providers Care Delicatessen Goods Stock Clerk Name Role Phone Simón Davidson DO Primary Care Provider + Encounter Details Date Type Department Care Team (Late st Contact Info) Description 06/21/2022 Orders Only [facility] [address] [place] [address] Conversion, Onbase Social History Tobacco Use Types [...] on filedocumented in this encounter Care Teams Delicatessen Goods Stock Clerk Relationship Specialty Start Date End Date Simón Davidson DO [address] [facility] [place] [address] PCP - General 10/21/17 documented as of this encounter
--- OUTSIDE RECORDS SUMMARY | 2025-02-06 11:30 | XMS_ITS | Encounter Summary ---
Author Organization [facility] Address [address] [place] [address] Care Team Providers Care Flag Decorator Name Role Phone Diony Sahrma MD Primary Care Provider [phone] Kenyetta Dove MD Unavailable [phone] Simón Ozuna MD Unavailable [phone] Amanda Montiel MD Unavailable [phone] Krish Hodge MD Unavailable [phone] Beny Hoskins MD Unavailable [phone] Encounter Details Date Type Department Care Team (Late st Contact Info) Description 10/16/2024 Orders Only [facility] [place] [facility] [address] [place] [id number] Kenyetta Dove MD [address] [place] [address] Abnormal cortisol level (Primary Dx) Social History [...] 02/12/2025 11:10 AM EDT Office Visit [facility] [place] [facility] [address] [place] [address] Kenyetta Dove MD [address] [place] [address] 02/12/2025 2:00 PM EDT Ancillary Procedure [facility] [place] [facility] [address] [place] [phone] 02/12/2025 2:45 PM EDT Office Visit SAMANTHA [place] [facility] [address] [place] [address] Amanda Montiel MD [address] [place], [place] [id number] documented as of this encounter Procedures Procedure [...] Primary documented in this encounter Care Teams Flag Decorator Relationship Specialty Start Date End Date Diony Sharma MD [address] [place] [address] PCP - General Internal Medicine 01/24/24 Kenyetta Dove MD [address] [place] [address] Referring Physician Endocrinology 08/01/24 Simón Ozuna MD [address] [place] [address] Referring Physician Urology 08/01/24 Amanda Montiel MD [address] [place] [address] Obstetrics and Gynecology 08/01/24 Krish Hodge MD [address] [facility] [place] [address] Referring Physician Ophthalmology 08/01/24 Beny Hoskins MD [address] [place] [address] [address] [place] [address] Referring Physician Gastroenterology 08/01/24 [facility] Mental Health 08/01/24 documented as of this encounter
--- OUTSIDE RECORDS SUMMARY | 2025-02-06 11:30 | XMS_ITS | Encounter Summary ---
Author Organization [facility] Address [address] [place] [address] Phone Care Team Providers Care Phys Assistant Name Role Phone Simón Davidson DO Primary Care Provider + Encounter Details Date Type Department Care Team (Late st Contact Info) Description 03/17/2023 Scanned Document [facility] [address] [place] [id number] Scanning, Generic Provider Social History Tobacco Use [...] filedocumented in this encounter Care Teams Phys Assistant Relationship Specialty Start Date End Date Simón Davidson DO [address] [facility] [place] [address] PCP - General 10/21/17 documented as of this encounter
--- OUTSIDE RECORDS SUMMARY | 2025-02-06 11:30 | XMS_ITS | Encounter Summary ---
Author Organization [facility] Address [address] [place] [address] Phone Care Team Providers Care Media/Instructional Designer Name Role Phone Simón Davidson DO Primary Care Provider + Encounter Details Date Type Department Care Team (Late st Contact Info) Description 01/03/2018 Orders Only [facility] [address] [place] [address] Conversion, Onbase Social History Tobacco Use Types [...] on filedocumented in this encounter Care Teams Media/Instructional Designer Relationship Specialty Start Date End Date Simón Davidson DO [address] [facility] [place] [address] PCP - General 10/21/17 documented as of this encounter
--- OUTSIDE RECORDS SUMMARY | 2025-02-06 11:30 | XMS_ITS | Encounter Summary ---
Author Organization [facility] Address [address] [place] [address] Phone Care Team Providers Care Carriage Feeder Name Role Phone Simón Davidson DO Primary Care Provider + Encounter Details Date Type Department Care Team (Late st Contact Info) Description 12/20/2022 Orders Only [facility] [address] [place] [address] Conversion, Onbase Social History Tobacco Use Types [...] on filedocumented in this encounter Care Teams Carriage Feeder Relationship Specialty Start Date End Date Simón Davidson DO [address] [facility] [place] [address] PCP - General 10/21/17 documented as of this encounter
--- OUTSIDE RECORDS SUMMARY | 2025-02-06 11:30 | XMS_ITS | Encounter Summary ---
Author Organization [facility] Address [address] [place] [address] Care Team Providers Care Supervisor Properties Name Role Phone Diony Sharma MD Primary Care Provider [phone] Kenyetta Dove MD Unavailable [phone] Simón Ozuna MD Unavailable [phone] Amanda Montiel MD Unavailable [phone] Krish Hodge MD Unavailable [phone] Beny Hoskins MD Unavailable [phone] Encounter Details Date Type Department Care Team (Late st Contact Info) Description 01/31/2025 Results Follow-Up [facility] [place] [facility] [address] [place] [address] Amanda Montiel MD [address] [facility] [address] [place] [address] IGP, APT HPV,RFX 16/18,45 Social History Tobacco Use Types Packs/Day Years [...] Endocrinology [address] [place] [address] Kenyetta Dove MD [address] [place] [address] 02/12/2025 2:00 PM EDT Ancillary Procedure [facility] [place] [facility] [address] [place] [address] 02/12/2025 2:45 PM EDT Office Visit [facility] [address] [place] [address] Amanda Montiel MD [address] [place] [address] documented as of this encounter Visit Diagnoses Not on filedocumented in this encounter Care Teams Supervisor Properties Relationship Specialty Start Date End Date Diony Sharma MD [address] [place] [address] PCP - General Internal Medicine 01/24/24 Kenyetta Dove MD [address] [place] [address] Referring Physician Endocrinology 08/01/24 Simón Ozuna MD [address] [place] [address] Referring Physician Urology 08/01/24 Amanda Montiel MD [address] [facility] [address] [place] [address] Obstetrics and Gynecology 08/01/24 Krish Hodge MD [address] [place] [address] Referring Physician Ophthalmology 08/01/24 Beny Hoskins MD [address] [place] [address] [address] [place] [address] Referring Physician Gastroenterology 08/01/24 [facility] Mental Health 08/01/24 documented as of this encounter
--- OUTSIDE RECORDS SUMMARY | 2025-02-06 11:30 | XMS_ITS | Encounter Summary ---
Author Organization [facility] Address [address] [place] [address] Care Team Providers Care Mailer Name Role Phone Diony Sharma MD Primary Care Provider [phone] Kenyetta Dove MD Unavailable [phone] Simón Ozuna MD Unavailable [phone] Amanda Montiel MD Unavailable [phone] Krish Hodge MD Unavailable [phone] Beny Hoskins MD Unavailable [phone] Encounter Details Date Type Department Care Team (Late st Contact Info) Description 12/10/2024 Results Follow-Up [facility] Internal Medicine [address] [place] [address] Omid Stevens, COTTON BAG CLIPPER [address] [place] [address] Hemoglobin a1c with eag Social [...] EDT Office Visit [facility] [place] [facility] [address] [place] [address] Kenyetta Dove MD [address] [place] [address] 02/12/2025 2:00 PM EDT Ancillary Procedure [facility] [place] [facility] [address] [place] [phone] 02/12/2025 2:45 PM EDT Office Visit [facility] [place] [facility] [address] [place] [address] Amanda Montiel MD [address] [place] [address] documented as of this encounter Visit Diagnoses Not on filedocumented in this encounter Care Teams Mailer Relationship Specialty Start Date End Date Diony Sharma MD [address] [place] [address] PCP - General Internal Medicine 01/24/24 Kenyetta Dove MD [address] [place] [address] Referring Physician Endocrinology 08/01/24 Simón Ozuna MD [address] [place] [address] Referring Physician Urology 08/01/24 Amanda Montiel MD [address] [place] [address] Obstetrics and Gynecology 08/01/24 Krish Hodge MD [address] [place] [address] Referring Physician Ophthalmology 08/01/24 Beny Hoskins MD [address] [place] [address] [address] [place] [address] Referring Physician Gastroenterology 08/01/24 [facility] Mental Health 08/01/24 documented as of this encounter
--- OUTSIDE RECORDS SUMMARY | 2025-02-06 11:30 | XMS_ITS | Encounter Summary ---
Author Organization [facility] Address [facility] [place] [address] Care Team Providers Care Golf Course Keeper Name Role Phone Simón Davidson DO Unavailable [phone] Source Comments In the event this information is protected by the Federal Confidentiality of Alcohol and Drug AbusePatient Records regulations: The Federal rules restrict any use of the information to criminally investigate or prosecute any alcohol or drug abuse patient.[facility] Encounter Details Date Type Department Care Team (Late st Contact Info) Description 06/28/2023 Get Medical Advice Rheumatology [address] [facility] [place] [address] Stephie Brambila MD [address] [place] [address] Follow up for testing Social [...] is lower risk 4 05/17/2023 Data from: https://[email or web address].medicine.[email or web address].edu/. Last address used for calculation [place] [...] on filedocumented in this encounter Care Teams Golf Course Keeper Relationship Specialty Start Date End Date Simón Davidson DO Referring Family Medicine 11/22/22 documented as of this encounter
--- OUTSIDE RECORDS SUMMARY | 2025-02-06 11:34 | XMS_ITS | CCD ---
Author Organization [facility] Care Team Providers Care Ink Grinder Name Role Phone Donya Billings Primary Care Provider Oscar Reed Unavailable DO Donya Billings Primary Care Provider MARCELLUS Marr Attending Provider MD Phillip Benjamin Attending Provider DO Steve Coronel Emergency Provider [phone] Oliver Mario Unavailable Donya Billings Unavailable Unavailable Unavailable Unavailable Unavailable DO Donya Billings Primary Care Provider MD Phillip Benjamin Attending Provider DO Steve Coronel Emergency Provider MD Kenyetta Dove Attending Provider Unavailable Primary Care Provider Unavailabl e DO Donya Billings Primary Care Provider Javad Leach Attending Provider [phone] PROVIDER, UNKNOWN Admitting Unavailable PROVIDER, UNKNOWN Attending [...] TERRISHEYLA Consulting Unavailable MANTILLA ., DR ZHANE Ahsraf Admitting Unavailable MANTILLA ., DR ZHANE Ashraf [...] TANGELA Consulting Unavailable Awa, Dr. Donya Wray [facility] Benjamin, Dr. Koehler Attending Unavaila ble Awa, Dr. Donya Wray [facility] Benjamin, Dr. Koehler Attending Unavaila ble Lavonne, Dr. Koehler Attending Unavaila ble Awa, Dr. Donya Wray [facility] Gaurav Benjamin, Dr. Koehler Referring Unavaila ble Lavonne, Dr. Koehler Referring Unavaila ble Awa, Dr. Donya Wray [facility] Benjamin, Dr. Koehler Attending Unavaila ble Awa, Dr. Donya Wray [facility] Gaurav Benjamin, Dr. Koehler Referring Unavaila ble Awa, Dr. Donya Wray [facility] Gaurav Benjamin, Dr. Koehler Attending Unavaila ble Awa, Dr. Donya Wray [facility] Gaurav Benjamin, Dr. Koehler Attending Unavaila ble LavonneDr. Koehler Referring Unavaila ble DO Donya Billings Primary Care Provider DO Yogi Michaels Emergency Provider Gaurav simeon [facility], PHYSICIAN Primary Care Provider UnaBHAVIN Sheriff Emergency Provider [phone] MD Amanda Valerio Attending Provider DO Melissa Singh II Primary Care Provider DO Mariya Kumari Emergency Provider MD Franklyn Herman Attending Provider MD Phillip Benjamin Other Provider [phone] Beny Hoskins Unavailable DO Yogi Michaels Emergency Provider Unavai MD Kenyetta Tong Attending Provider DO Melissa Singh II Other Provider MARCELLUS Mcintosh Attending Provider NO [facility], PHYSICIAN Primary Care Provider Unava MD Beny Cheng Attending Provider [phone] MAXIMILIANO Aguirre Other Provider [phone] Awa BARAKAT Donya Ashraf Unavailable [facility] Referring Unavaila ble [facility] Attending Unavaila ble [facility] Referring Unavaila ble [facility] Attending Unavaila ble James, Roula Unavailable DO Melissa Singh II Primary Care Provider DO Jorge Jarrett Emergency Provider [phone] DO Melissa Singh II Primary Care Provider DO Jorge Jarrett Emergency Provider [phone] DO Melissa Singh II Attending Provider [phone] MARCELLUS Dominguez Attending Provider [phone] MAXIMILIANO Lozoya Emergency Provider Samantha II, DO Melissa J Primary Care Provider Samantha II, DO Melissa J Primary Care Provider Self, Referral Attending Provider Unavailable MD Melissa Coon Primary Care Provider Isabela, [employer] Dalia Attending Provider MD Kenyetta Dove Attending Provider Melissa Coon MD Primary Care Provider Melissa Coon MD Primary Care Provider [phone] Camila PELAYO, Andrius Attending Provider Melissa Coon MD Primary Care Provider [phone] Camila PELAYO, Andri Attending Provider Melissa Coon MD Attending Provider Chaz Carrillo DO Attending Provider [phone] Kenyetta Dove MD Attending Provider Derrell PELYAO, Kenyetta F Unavailable Laith PELAYO, Donya P Unavailable [phone] Dinesh PELAYO, Amanda P Unavailable Ayesha PELAYO, Krish E Unavailable Gato PELAYO, Beny Unavailable [phone] Melissa Coon MD Primary Care Provider Chaz Carrillo DO Attending Provider Tanner Menendez PA-C Attending Provider Derrell PELAYO, Kenyetta Referring Provider Melissa Coon MD Primary Care Provider [phone] Isabela [employer], Dalia Attending Provider Melissa Coon MD Primary Care Provider Kenyetta Dove MD Attending Provider Chito PELAYO, Robbie Leon Attending Provider [phone] Melissa Coon MD Primary Care Provider [phone] Omid Quan RN Attending Provider [phone] Risaliti [employer], Dalia Referring Provider Robbie Dale MD Other Provider [phone] Vahid PELAYO, Yogi Madera Attending Provider Devora VIERA, Javad Emergency Provider Shaggy PELAYO, Melissa Primary Care Provider Tanner Menendez PA-C Attending Provider Melissa Benz MD Attending Provider [phone] Donya OZUNA Attending Unavailable Santos Johnston Admitting Unavailable Santos Johnston Attending Unavailable NONE, XXXX Referring Unavailable Eldon Yates Attending Unavailable NONE, XXXX Referring Unavailable Eldon Yates Admitting Unavailable Camila PELAYO, Andrius Vytauthannah Attending Unavailable Giedraitis , Andrius Vytautas Attending Unavailable Giedraitis , Andrius Vytautas Attending Unavailable Giedraitis , Andrius Vytautas Attending Unavailable Giedraitis , Andrius Vytautas Attending Unavailable Giedraitis , Andrius Vytautas Attending Unavailable Giedraitis , Andrius Vytautas Attending Unavailable Giedraitis , Andrius Vytautas Attending Unavailable Giedraitis , Andrius Vytauthannah Attending Unavailable Shaggy PELAYO, Melissa Primary Care Provider Kenyetta Dove MD Attending Provider [phone] Melissa Coon Primary Care Unavailable Javad Lozoya Attending Unavailable Javad Lozoya Admitting Unavailable Melissa Coon Primary Care Unavailable Omid Quan Attending Unavailable Omid Quan Admitting Unavailable Chaz Carrillo Attending Unavailable Chaz Carrillo Admitting Unavailable Melissa Coon Primary Care Unavailable Robbie Dale Attending Unavailable Robbie Dale Admitting Unavailable Melissa Coon Primary Care Unavailable Risaliti, Dalia Referring Unavailable Melissa Coon [facility] Care Unavailable Risaliti, Dalia Attending Unavailable Risaliti, Dalia Admitting Unavailable Hill, Melissa Primary Care Unavailable Derrell, Ahmad Admitting Unavailable Derrell, Ahmad Attending Unavailable Hill, Melissa Primary Care Unavailable Demar II, Melissa M Attending Unavailabl e Windham II, Melissa M Admitting Unavailabl e Hill, Melissa Primary Care Unavailable Windham II, Melissa M Attending Unavailabl e Demar II, Melissa M Admitting Unavailabl e Hill, Mleissa Primary Care Unavailable Derrell, Ahmad Attending Unavailable Derrell, Ahmad Admitting Unavailable Derrell, Ahmad Referring Unavailable Hill, Melissa Primary Care Unavailable Derrell, Ahmad Admitting Unavailable Derrell, Ahmad Attending Unavailable Giedraitis, Andrius Attending Unavailable Giedraitis, Andrius Admitting Unavailable Hill, Melissa Primary Care Unavailable Hill, Melissa Admitting Unavailable Hill, Melissa Attending Unavailable Hill, Melissa Primary Care Unavailable Workjonathan, Tanner M Attending Unavailable Workman, Tanner M Admitting Unavailable Hill, Melissa Primary Care Unavailable Workjonathan, Tanner M Admitting Unavailable Hill, Melissa Primary Care Unavailable WorkmanTanner M Attending Unavailable Hill, Melissa Primary Care Unavailable Risaliti, Dalia Attending Unavailable Risaliti, Dalia Admitting Unavailable Hill, Melissa Primary Care Unavailable Derrell, Ahmad Attending Unavailable Derrell, Ahmad Admitting Unavailable Hill, Melissa Primary Care Unavailable Risaliti, Dalia Attending Unavailable Risaliti, Dalia Admitting Unavailable HILL, MELISSA L Attending Unavailable DERRELL, AHMAD F Attending Unavailable DERRELL, AHMAD F Referring Unavailable WORKJONATHAN, TANNER M Attending Unavailable RISALITI, DALIA R Attending Unavailable HILL, MELISSA L Referring Unavailable HILL, MELISSA L Attending Unavailable DERRELL, AHMAD F Attending Unavailable DERRELL, AHMAD F Referring Unavailable HILL, MELISSA L Referring Unavailable WORKMAN, SUMMER M Referring Unavailable HILL, MELISSA L Referring Unavailable HILL, MELISSA L Referring Unavailable RISALITI, DALIA R Attending Unavailable AMANDA VALERIO Attending Unavailable Allergies Allergy Classification Reported Allergen(s) Allergy Type Date of Onset Reaction(s) Facility (1 source) Latex; Translations: [Latex] Propensity to adverse reactions (disorder) 7 [facility] Repository (1 source) venlafaxine; Translations: [Effexor] Drug Allergy [facility] Repository Medications Current Medications Medication Drug Class(es) Dates Sig (Normalized) Sig (Original) acetaminophen 500 mg oral tablet (20 sources) Start: 09-20-2022 take 2 tablets by mouth twice daily Acetaminophen 500 mg Tablet Active 1000 MG PO Twice daily September 20, 2022 12:00am Complies with drug therapy Start: 09-20-2022 take 1000 mg by mout h twice daily Acetaminophen Active 1000 MG PO Twice daily September 20, 2022 12:00am Tylenol bid Acti ve acetaminophen 325 mg / HYDROcodone bitartrate 5 mg oral tablet (20 sources) Opioid Agonist Start: 01-11-2025 End: 01-22-2025 take 1-2 tablets by mouth every six hours for pain HYDROcodone-acetaminophen (Blanco) 5-325 MG tablet Indications: Acute pain of left knee Take 1-2 tablets by mouth every 6 (six) hours if needed for severe pain 42 tablet 01/22/2025 Active Start: 03-29-2023 End: 05-14-2024 take 1 tablet by mouth twice daily as needed for pain Hydrocodone-Acetaminophen 5-325 mg Table t Discontinued 1 TAB PO Twice daily as needed for Pain March 29, 2023 12:00am May 14, 2024 3:08pm Blanco Active Comment on above: TAKE 1 TABLET BY CHRISTOPHER TH 2 TIMES A DAY NEEDED FOR PAIN amoxicillin 875 mg oral tablet (1 source) Penicillin-class Antibacterial Start: take 1 tablet by mouth every twelve hours Amoxicillin 875 MG 1 tablet Orally Twice a day for 10 days Jun, Active Aspir-81 (4 sources) Aspir-81 Active B Hndqmzx-Rolbqd-LU (Super Quints B-50) tablet (20 sources) B [...] 1 capsule by mo uth every week Cholecalciferol (Vitamin D3) 50,000 unit capsule Active 88122 UNIT PO every week July 18, 2018 1:00am Complies with drug therapy take 1 capsule by mo uth once daily Vitamin D3 1.25 MG (07735 UT) Oral Capsule TAKE 1 CAPSULE Daily Quantity: 0 Refills: 0 Ordered: 28-Jul-2022 DO Active Comment on above: Take 1 capsule by mo uth every afternoon. clindamycin 20 mg/ml vaginal cream (2 sources) Lincosamide Antibacterial Start: 01-31-20 25 End: 02-07-20 clindamycin (Cleocin) 2 % vaginal cream Indications: Vaginitis and vulvovaginitis , Cervicitis and endocervicitis , Acute vaginitis , Bacterial vaginitis Insert 1 applicator into the vagina at bedtime for 7 days 40 g 01/30/2025 02/06/2025 Active Collagen (20 sources) COLLAGEN PO Take by [...] tablet (20 sources) Serotonin Reuptake Inhibitor Start: 05-14-20 take 1 tablet by mouth once daily Escitalopram Oxalate (Lexapro) 20 mg tablet Active 20 MG PO Daily May 14, 2024 1:00am Complies with drug therapy Start: 05-02-2023 take 1 tablet by christopher [...] take 1 tablet by mouth once daily Ferrous Sulfate 325 mg (65 mg iron) tablet Active 325 MG PO Daily May 14, 2024 1:00am Complies with drug therapy fluconazole 100 mg oral tablet (5 sources) Azole Antifungal Start: 08-11-19 take 1 tablet by mouth once daily fluconazole (DIFLUCAN) 100 MG tablet Take 100 mg by mouth daily. for 10 days 0 08/10/2022 Active fluocinonide 0.5 mg/ml topical solution (6 sources) Corticosteroid Start: 01-18-20 24 fluocinonide (Lidex) 0.05 % external solution Apply 1 application topically Daily 01/18/2024 Active furosemide 40 mg oral tablet (20 sources) Loop Diuretic Start: 11-30-19 take 1 tablet by mouth twice daily Furosemide 40 mg tablet Active 40 MG PO Twice daily November 29, 2024 12:00am Complies with drug therapy Start: 10-16-2024 End: 11-21-2025 take 1 tablet [...] / losartan potassium 100 mg oral tablet (19 sources) Thiazide Diuretic, Angiotensin 2 Receptor Shorty take 1 tablet by mouth once daily losartan-hydroCHLOROthiazide (Hyzaar) 100-12.5 MG tablet Take 1 tablet by mouth Daily Active ketoconazole 20 mg/ml medicated shampoo (6 sources) Azole Antifungal Star t: 12-29 24 ketoconazole (NIZOral) 2 % shampoo Apply 1 application topically 2 (two) times a week 01/18/2024 Active L.acid,gas,rg,rham-B.an i-cran ([facility] Women's) (18 sources) Star t: 04-29- 24 L.acid,gas,rg,rham-B.ani-cr an ([facility] Women's) Active PO May 14, 2024 1:00am Complies with drug therapy Start: 05-14-2024 Start: 05-14-2024 L.acid,gas,rg ,rham-B.ani-cran ([facility] Women's) Active PO May 14, 2024 1:00am Start: 05-14-2024 L.acid,gas,rg ,rham-B.ani-cran ([facility] [facility]'s) Active PO [...] 1 capsule by mo uth once daily Levothyroxine 112 mcg capsule Active 112 MCG PO Daily May 14, 2024 1:00am Complies with drug therapy Start: 11-26-2021 take 1 tablet by christopher [...] take 1 tablet by mouth once daily Liothyronine 5 mcg tablet Active 5 MCG PO Daily May 14, 2024 3:09pm Complies with drug therapy Start: 09-20-2022 End: 05-14-2024 take 10 mg by mouth once daily Liothyronine 5 mcg Tabl et Discontinued 10 MCG PO Daily September 20, 2022 12:00am May 14, 2024 3:12pm takes 10mg daily Start: 09-20-2022 take 10 mg by mouth once daily Liothyronine Active 10 MCG PO Daily September 20, 2022 12:00am takes 10mg daily Start: 11-26-2021 take 1 tablet by christopher twice daily liothyronine (CYTOMEL) 5 MCG tablet [...] Start: 05-14-2024 take 1 capsule by mo [facility] once daily as needed Lubiprostone 24 mcg capsule Active 24 MCG PO Daily as needed May 14, 2024 2:10pm Start: 06-15-2023 take 1 capsule by mo [facility] twice daily at mealtime Lubiprostone 8 MCG 1 capsule with food and water Orally Twice a day for 30 days May, Active Start: 09-20-2022 End: 05-14-2024 take 1 capsule by mouth once daily as needed Lubiprostone 24 mcg capsule Active 24 MCG PO Daily as needed May 14, 2024 3:10pm Complies with drug therapy Start: 09-20-2022 End: 05-14-2024 take 1 capsule [...] therapy Start: 07-18-2018 take 2 tablets by mo uth twice daily Start: 07-18-2018 take 2 tablets by mo uth twice daily Magnesium 200 mg Tablet Active 400 MG PO Twice daily July 18, 2018 1:00am Start: 07-18-2018 take 2 tablets by mo uth twice daily Magnesium 200 mg Tablet Active [...] tablet by mouth once daily at bedtime Melatonin 10 mg Tablet Active 10 MG PO Daily at bedtime July 18, 2018 1:00am Complies with drug therapy Melatonin 10 MG as directed Orally Active [...] (20 sources) Nitroimidazole Antimicrobial Start: 11-30-19 25 Metronidazole 0.75 % gel Active 1 APPLIC TOPICAL Twice daily November 29, 2024 12:00am Complies with drug therapy Start: 10-09-2024 End: 10-09-2025 metroNIDAZOLE (Metrogel) 0.7 [...] g 1 10/16/2024 Active polyethylene glycol 3350 45213 mg powder for oral solution (5 sources) [...] Discontinued (Reorder) predniSONE 20 mg oral tablet (9 sources) Start: 01-02-2025 take 2 tablets by mouth once daily at mealtime Prednisone 20 mg tablet Active 40 MG PO Daily January 02, 2025 12:00am administer with food or milk Complies with drug therapy Start: 03-07-2024 predniSONE (De ltasone) 20 MG [...] take 1 tablet by mouth twice daily Propranolol 20 mg tablet Active 20 MG PO Twice daily July 22, 2023 1:00am Complies with drug therapy take 1 tablet by christopher every twenty-four [...] capsule by mouth once daily for sleep Temazepam 30 mg capsule Active 30 MG PO Daily at bedtime as needed for sleep 1 November 29, 2024 12:00am use if needed night of sleep study Complies with drug therapy Start: 05-25-2022 take 1 capsule by mo [facility] once daily at bedtime as needed for [...] on above: TAKE 1 CAPSULE BY MO [facility] ONCE A DAY (AT BEDTIME) [...] source) Start: 05-12-2022 take 1 tablet by [facility] once daily Trulance 3 MG 1 tablet [...] mouth Active Turmeric Active Vitamin B Complex (9 sources) Start: 11-29-2024 Start: 11-29-2024 vitamin B [...] September 20, 2023 December 05, 2023 11:42am [id number] 200 actuat albuterol 0.09 mg/actuat metered dose inhaler (16 sources) beta2-Adrenergic Agonist Start: 12-05-2023 End: 05-14-2024 [...] 11:38am Start: 09-23-2021 take 1 tablet by [facility] twice daily baclofen (LIORESAL) 10 MG tablet [...] Baclofen Active benzonatate 200 mg oral capsule (19 sources) Non-narcotic Antitussive Start: 05-14-2024 End: 11-29-2024 take 1 capsule by mouth three times daily as needed for cough Benzonatate 200 mg capsule Discontinued 200 MG PO Three times daily as needed for cough May 14, 2024 1:00am November 29, 2024 9:52am Start: 04-28-2022 take 1 capsule by mo [facility] every eight hours Benzonatate 100 MG 1 capsule as needed Orally Three times a day for 10 days Mar, Active biotin 10 mg oral capsule (20 sources) Start: 07-18-2018 End: 09-20-2022 take 1 capsule by mouth once daily Biotin 10,000 mcg Capsule Discontinued 32226 MCG PO Daily July 18, 2018 1:00am [...] mg / cholecalciferol 200 unt oral tablet (17 sources) Vitamin D Start: 9 End: 3 [...] capsule (20 sources) Calcium Channel Shorty Start: End: 024 take 1 capsule by mouth every twenty-four hours in the morning dilTIAZem CD (Cardizem CD) 240 MG 24 hr capsule Take 1 capsule by mouth in the morning. 04/25/2023 01/24/2024 Discontinued Start: 03-29-2023 End: 12-13-2024 take 1 capsule by mouth once daily Diltiazem Hcl 240 mg capsule,extended release 24hr Active 240 MG PO Daily March 29, 2023 12:00am Complies with drug therapy dilTIAZem HCl 24 0mg Active Comment on above: Take 1 capsule by [facility] every afternoon. doxycycline hyclate 100 mg oral capsule (20 sources) Tetracycline-class Drug Start: End: take 1 capsule by mouth twice daily at mealtime Doxycycline Hyclate 100 mg capsule Discontinued 100 MG PO Twice daily 10 12May 14, 2024 1:00am November 29, 2024 9:52am with food Start: 10-16-2022 take 1 capsule by [facility] every twelve hours Doxycycline Hyclate 100 MG 1 capsule Orally Twice a day for 10 day(s) September, Not-Taking/PRN estrogens, conjugated (mcc) 0.3 mg / medroxyPROGESTERone acetate 1.5 mg oral tablet (1 source) Progestin, Estrogen take 1 tablet by mouth once daily Conj Estrog-Medroxyprogest Tyrel 0.3-1.5 mg per tablet Take 1 tablet by mouth once daily. 0 Active Comment on above: Take 1 tablet by [facility] once daily. FE FUMARATE/CA CARB/VITAMIN D3 ([id number] FUMARATE ORAL) (1 source) FE FUMARATE/CA CARB/VITAMIN D3 ([id number] FUMARATE ORAL) Take by mouth. 0 Active [...] 12:00am September 20, 2022 7:23pm lactobacillus acidophilus [id number] unt / pectin 10 mg oral capsule [...] on above: Take 1 capsule by mo [facility] once daily. mupirocin 0.02 mg/mg topical ointment (20 sources) RNA Synthetase Inhibitor Antibacterial Start: 12-02-2018 End: 12-15-2018 Mupirocin 2 % ointment Discontinued 1 APPLIC TOPICAL Twice daily 11 12December 02, 2018 12:00am December 15, 2018 5:08pm [...] 100 mg by mouth once daily. thyroid (mcc) 60 mg oral tablet (1 source) thyroid, [...] Translations: [Acute bronchitis] 05-14-2024 Episodic Administrative/social admission (6 sources) Patient encounter status; Translations: [Dietary counseling [...] Episodic Inflammatory diseases of female pelvic organs (9 sources) Acute vaginitis; Translations: [Acute vaginitis] 10-16-2024 Episodic [...] hip] 03-07-2024 Episodic Other connective tissue disease (12 sources) Right rotator cuff syndrome; Translations: [Unspecified rotator cuff tear or rupture of right shoulder, not specified as traumatic] 10-03-2023 Episodic Other connective tissue disease (8 sources) Swelling of lower limb; Translations: [Other specified soft tissue disorders] 12-26-2024 Episodic Other diseases of kidney and ureters (8 sources) Cyst of kidney; Translations: [Cyst of kidney, acquired] Onset: 5 12-20-2024 Episodic Other endocrine disorders (2 sources) Disorder of endocrine system; Translations: [Endocrine disorder, unspecified] 01-29-2025 Episodic Other eye disorders (7 sources) Hypertropia of right eye; Translations: [Hypertropia] Episodic Other eye disorders (20 sources) Pain in eye; Translations: [Ocular pain, unspecified eye] 01-24-2023 Episodic Other female genital disorders (2 sources) Vaginal odor; Translations: [Other specified noninflammatory disorders of vagina] 01-29-2025 Episodic Other female genital disorders (2 sources) Vaginal discharge; Translations: [Other specified noninflammatory disorders of vagina] 01-29-2025 Episodic Other female genital disorders (2 sources) Vaginal irritation; Translations: [Other specified noninflammatory disorders of vagina] 01-29-2025 Episodic Other gastrointestinal disorders (2 sources) Irritable [...] [Rosacea, unspecified] 10-09-2024 Chronic Other liver diseases (10 sources) Large liver; Translations: [Hepatomegaly, not elsewhere [...] shoulder] 09-20-2023 Episodic Other non-traumatic joint disorders (8 sources) Pain in left knee; Translations: [Left [...] to 44.9 in adult, unspecified obesity type ([facility])] 02-28-2024 Chronic Other nutritional; endocrine; and metabolic [...] Onset: 4 01-18-2014 Chronic Residual codes; unclassified (18 sources) Sleep apnea; Translations: [Sleep apnea, unspecified] 11-29-2024 Chronic Residual codes; unclassified (16 sources) Hypoxia; Translations: [Idiopathic sleep related nonobstructive [...] [Localized edema] 10-09-2024 Episodic Residual codes; unclassified (18 sources) Insomnia; Translations: [Insomnia, unspecified] 11-29-2024 Episodic [...] [Shortness of breath] Onset: 10-09-2024 Episodic Other screening for suspected conditions (not mental disorders or infectious disease) (2 sources) Abnormal results of other endocrine function studies; Translations: [Other specified abnormal findings of blood chemistry] Onset: 08-29-2024 Episodic Other skin disorders (20 sources) Non-scarring [...] Test Name Value Interpretation Reference Range Facility Laboratory - Microbiology an d Antimicrobial susceptibilityon 02-01-2025 A. vaginae DNA CESAR+probe Ql (Vag fld) Low - 0 Score [facility] Bacterial vaginosis associated bacterium 2 DNA CESAR+probe Ql (Vag fld) Low - 0 Score [facility] C. albicans DNA CESAR+probe Ql (Vag fld) Negative Negative [facility] C. glabrata DNA CESAR+probe Ql (Vag fld) Negative Negative [facility] C. trachomatis DNA CESAR+probe Ql (Unsp spec) Negative Negative [facility] M. genitalium DNA CESAR+probe Ql (Unsp spec) Negative Negative [facility] M. hominis DNA CESAR+probe Ql (Unsp spec) Negative Negative [facility] Megasphaera sp type 1 DNA CESAR+probe Ql (Vag fld) Low - 0 Score [facility] Comment on above: Calculate total scor e by adding the 3 individual bacterial vaginosis (BV) marker scores together. Total score is interpreted as follows: Total score 0-1: Indicates the absence of BV. Total score 2: Indeterminate for BV. Additional clinical data should be evaluated to establish a diagnosis. Total score 3-6: Indicates the presence of BV. N. gonorrhoeae DNA CESAR+probe Ql (Vag fld) Negative Negative [facility] T. vaginalis DNA CESAR+probe Ql (Vag fld) Negative Negative [facility] Ureaplasma sp DNA CESAR+probe Ql (Unsp spec) Negative Negative [facility] No Panel Informationon 02-01 Test(s) 870439- Atop obium vaginae; 818758- BVAB 2; 816216- Megasphaera 1 was developed and its performance characteristics determined by [employer]. It has not been cleared or approved by the Food and Drug Administration. Test(s) 105506-Jrpcwpf albicans, CESAR; 683036-Byrjrxy glabrata, CESAR was developed and its performance characteristics determined by [employer]. It has not been cleared or approved by the Food and Drug Administration. Performed at: 01 - 24 [address] [id number] Air Hammer Stripper: Roger Kenny MD, Phone: [phone] [facility] Test(s) 756481-Louzo lasma hominis CESAR; 935782-Fwiwznqqjp spp CESAR was developed and its performance characteristics determined by [facility]. It has not been cleared or approved by the Food and Drug Administration. Performed at: - [address] [id number] Air Hammer Stripper: Roger Kenny MD, Phone: [phone] [facility] Laboratory - Cytologyon Gis Database Administrator Cyto stain Nom (Cvx/Vag) [ID] Comment [facility] Comment on above: Keisha Olivo, Cytol ogist (ASCP) Cytology report Cyto stain Doc (Cvx/Vag) Comment [facility] Comment on above: NEGATIVE FOR INTRAEP ITHELIAL LESION OR MALIGNANCY. Cytology report Cyto stain.thin prep Doc (Cvx/Vag) Comment [facility] Comment on above: This liquid based Th inPrep(R) pap test was screened with the use of an image guided system. Statement of adequacy Cyto stain (Cvx/Vag) [Interp] Comment [facility] Comment on above: Satisfactory for chance luation. No endocervical component is identified. Laboratory - Microbiology an d Antimicrobial susceptibilityon 01-31-2025 HPV 16+18+31+33+35+39+45+ 51+52+56+58+59+66+68 DNA Probe+sig amp Ql (Cvx) Negative Negative [facility] Comment on above: This nucleic acid am plification test detects fourteen high- risk HPV types (16,18,31,33,35,39,45,51,52,56,58,59,66,68) without differentiation. Microscopic observation Other stain Nom (Unsp spec) . [facility] Laboratory - Miscellaneous t estson 01-31-2025 Service comment (Unsp spec) [Interp] Comment [facility] Comment on above: The Pap smear is a s creening test designed to aid in the detection of premalignant and malignant conditions of the uterine cervix. It is not a diagnostic procedure and should not be used as the sole means of detecting cervical cancer. Both false-positive and false-negative reports do occur. No Panel Informationon 01-31 Diagnosis ICD code [Identifier] Comment [facility] Comment on above: Z01.419 Z12.4 Performed at: 01 - [facility] [address] [id number] Air Hammer Stripper: Laila Connelly MD, Phone: [phone] Performed at: - [facility] [address] [id number] Air Hammer Stripper: Laila Connelly MD, Phone: [phone] Specimen Comment: No. of containers..01 ThinPrep Vial [facility] MR knee LT wo conon 01-26-20 MR knee LT wo con [facility] [place] [address] MRI Report Signed Patient: Lupe Pickard MR#: [id number] : 1975 Acct:[id number] Age/Sex: 49 / F ADM Date: 01/25/25 Loc: [facility] Room: Type: [facility] Attending Dr: Melissa Benz II, MD Copies to: Melissa Benz MD Ordering Provider: Melissa Benz MD Date of Service: 01/25/25 MR/MR [...] Gresham M.D. 01/25/2025 1:28 PM Dictation Location: [place] [address] Transcribed By: [facility] 01/25/25 1328 Dictated By: Rao Gresham DO 01/25/25 1320 Signed By: 01/25/25 1328 Normal [facility] Magnetic resonance imaging r eportOrdered By: Rao Gresham on 01-25-2025 Study report [facility] [place] [address] [place] [address] MRI Report Signed Patient: Lupe Pickard MR#: [id number] : 1975 Acct:[id number] Age/Sex: 49 / F ADM Date: 5 Loc: [facility] Room: Type: [facility] Attending Dr: Melissa Benz II, MD Copies to: Melissa Benz MD~ Ordering Provider: Melissa Benz MD Date of Service: 01/25/25 MR/MR [...] Gresham M.D. 01/25/2025 1:28 PM Dictation Location: [facility] Transcribed By: [facility] 01/25/25 1328 Dictated By: Rao Gresham DO 01/25/25 1320 Signed By: 01/25/25 1328 [facility] X-ray reportOrdered By: Imtiaz Gresham on 01-08-2025 Study report [facility] [address] [place] [address] XRay Report Signed Patient: Lupe Pickard MR#: [id number] : 1975 Acct:[id number] Age/Sex: 49 / F ADM Date: 5 Loc: [facility] Room: Type: [facility] Attending Dr: Melissa Benz II, MD Copies [...] Rao Gresham DO 01/08/252006 Signed By: 01/08/252010 [facility] Study report [facility] [address] [place] [address] XRay Report Signed Patient: Lupe Pickard MR#: [id number] : 1975 Acct:[id number] Age/Sex: 49 / F ADM Date: 5 Loc: [facility] Room: Type: [facility] Attending Dr: Melissa Benz II, MD Copies [...] 8:07 PM Dictation Location: [facility] Transcribed By: [facility] 01/08/252006 Dictated By: Rao Gresham DO 01/08/252003 Signed By: 01/08/252006 [facility] XR knee LT 4V*on 01-08-2025 XR knee LT 4V* [facility] [address] [place] [address] XRay Report Signed Patient: Lupe Pickard MR#: [id number] : 1975 Acct:[id number] Age/Sex: 49 / F ADM Date: 01/08/25 Loc: [facility]: [facility] Attending Dr: Melissa Benz II, MD [...] Gresham M.D. 01/08/2025 8:11 PM Dictation Location: [place] [address] Transcribed By: [facility] 01/08/252010 Dictated By: Rao Gresham DO 01/08/252006 Signed By: 01/08/252010 Normal [facility] XR pelvis 1-2Von 01-08-2025 XR pelvis 1-2V [facility] [address] [place] [address] XRay Report Signed Patient: Lupe Pickard MR#: [id number] : 1975 Acct:[id number] Age/Sex: 49 / F ADM Date: 01/08/25 Loc: [facility]: Melissa Benz II, MD [...] Gresham M.D. 01/08/2025 8:07 PM Dictation Location: [facility] Transcribed By: BOB 01/08/252006 Dictated By: Rao Gresham DO 01/08/252003 Signed By: 01/08/252006 Normal [facility] X-ray reportOrdered By: Nicolas Neff on 01-02-2025 Study report [place] [id number] XRay Report Signed Patient: Lupe Pickard MR#: [id number] : 1975 Acct:[id number] Age/Sex: 49 / F ADM Date: 5 Loc: ER Room: Type: [facility] ER Attending Dr: Copies to: Javad Lozoya APRN~ Ordering Provider: Javad Lozoya APRN Date of Service: 01/02/25 XR/XR knee LT 4V*: Extremity Injury, Lower ([id number]) XR/XR shoulder RT min 2V*: Extremity Injury, [...] Jr., D.OJaycee 01/02/2025 12:14 PM Dictation Location: [facility] Transcribed By: BOB 01/02/25 1214 Dictated By: Bob Neff Jr, DO 01/02/25 1213 Signed By: 01/02/25 1214 [facility] XR knee LT 4V*on 01-02-2025 XR knee LT 4V* [address] [address] XRay Report Signed Patient: Lupe Pickard MR#: [id number] : 1975 Acct:[id number] Age/Sex: 49 / F ADM Date: 01/02/25 Loc: ER Room: Type: [facility] ER Attending Dr: Copies to: Javad Lozoya APRN Ordering Provider: Javad Lozoya APRN Date of Service: 01/02/25 XR/XR knee LT 4V*: Extremity Injury, Lower ([id number]) XR/XR shoulder RT min 2V*: Extremity Injury, [...] PROCESS. Impression dictated by: Bob Neff Jr., KevinOJaycee 01/02/2025 12:14 PM Dictation Location: [place] [address] Transcribed By: [facility] 01/02/25 1214 Dictated By: Bob Neff Jr, DO 01/02/25 1213 Signed By: 01/02/25 1214 Normal [facility] CT ABDOMEN PELVIS W IV [...] 12-07-2024 Glucose [Mass/Vol] 117 mg/dL Normal [facility] Comment on above: Result Comment: PERF ORMED BY: [place] [address] PATHOLOGIST PIN MACHINE OPERATOR MARIUM AVALOS M.D. Performed By: #### C MP, UA, LIPID, TSH3, CBC, URMACRERAT, LILLIANA, FE and TIBC #### [facility] [address] [place] [address] WILL Antinuclear Antibodieson 12-07-2024 Antinuclear Abs, IFA Negative Normal . [facility] Comment on above: Result Comment: Nega tive <1:80 Borderline 1:80 Positive >1:80 ICAP nomenclature: AC-0 For more information about Hep-2 cell patterns use ANApatterns.org, the official website for the International Consensus on Antinuclear Antibody (WILL) Patterns (ICAP). Performed at: - [address] [id number] Air Hammer Stripper: Ramirez Ca PhD, Phone: [phone] Performed By: #### C MP, UA, LIPID, TSH3, CBC, URMACRERAT, LILLIANA, FE and TIBC #### [facility] [address] [place] [address] Alanine aminotransferase [En zymatic activity/volume] in Serum or PlasmaOrdered By: OMID QUAN on 12-07-2024 ALT [Catalytic activity/Vol] 29 U/L 7-52 [facility] Comment on above: Performed By: #### C MP, UA, LIPID, TSH3, CBC, URMACRERAT, LILLIANA, FE and TIBC #### [facility] [address] [place] [address] [place] Albumin [Mass/volume] in Ser um or Plasma by Bromocresol green (BCG) dye binding methoOrdered By: OMID QUAN on 12-07-2024 Albumin BCG dye [Mass/Vol] 3.8 g/dL 3.5-5.7 [facility] Alkaline phosphatase [Enzyma tic activity/volume] in Serum or PlasmaOrdered By: OMID QUAN on 12-07-2024 ALP [Catalytic activity/Vol] 56 U/L 34-104 [facility] Comment on above: Performed By: #### C MP, UA, LIPID, TSH3, CBC, URMACRERAT, LILLIANA, FE and TIBC #### [facility] [address] Appearance of UrineOrdered B y: OMID QUAN on 12-07-2024 Appearance (U) Clear Clear [facility] Comment on above: Order Comment: Name Collection Type:: Clean-Voided Midstream Performed By: #### C MP, UA, LIPID, TSH3, CBC, URMACRERAT, LILLIANA, FE and TIBC #### [facility] [address] [place] [address] [place] Aspartate aminotransferase [ Enzymatic activity/volume] in Serum or PlasmaOrdered By: OMID QUAN on 12-07-2024 AST [Catalytic activity/Vol] 20 U/L 13-39 [facility] Comment on above: Performed By: #### C MP, UA, LIPID, TSH3, CBC, URMACRERAT, LILLIANA, FE and TIBC #### [facility] [address] [place] [address] [place] Bacteria [Presence] in Urine by AutomatedOrdered By: OMID QUAN on 12-07-2024 Bacteria Auto Ql (U) None seen [HPF] None Seen [facility] Bilirubin Test strip Ql (U)O rdered By: OMID QUAN on 12-07-2024 Bilirubin Ql (U) Negative Negative [facility] Bilirubin.total [Mass/volume ] in Serum or PlasmaOrdered By: OMID QUAN on 12-07-2024 Bilirubin [Mass/Vol] 0.4 mg/dL 0.3-1.0 [facility] Comment on above: Performed By: #### C MP, UA, LIPID, TSH3, CBC, URMACRERAT, LILLIANA, FE and TIBC #### [facility] [address] Blood estimated average gluc ose determination by estimation from glycated hemoglobinOrdered By: OMID QUAN on 12-07-2024 Average glucose Estimated from glycated hemoglobin (Bld) [Mass/Vol] 117 mg/dL [facility] C reactive protein [Mass/vol ume] in Serum or Plasma by High sensitivity methodOrdered By: OMID QUAN on 12-07-2024 CRP High sensitivity method [Mass/Vol] 15.7 mg/L High 0.0-0.9 [facility] Comment on above: Cardiovascular Risk [...] 15.7 mg/L High 0.0 - 0.9 mg/L [facility] Comment on above: Cardiovascular Risk Classification [...] and review of laboratory results Abnormal [facility] Calcium [Mass/volume] in Ser um or PlasmaOrdered By: OMID QUAN on 12-07-2024 Calcium [Mass/Vol] 9.0 mg/dL 8.6-10.3 [facility] Comment on above: Performed By: #### C MP, UA, LIPID, TSH3, CBC, URMACRERAT, LILLIANA, FE and TIBC #### [facility] [address] Carbon dioxide, total [Moles /volume] in Serum or PlasmaOrdered By: OMID QUAN on 12-07-2024 CO2 [Moles/Vol] 31.0 mmol/L 21.0-31.0 [facility] Comment on above: Performed By: #### C MP, UA, LIPID, TSH3, CBC, URMACRERAT, LILLIANA, FE and TIBC #### [address] Chloride [Moles/volume] in S zakia or PlasmaOrdered By: OMID QUAN on 12-07-2024 Chloride [Moles/Vol] 101 mmol/L 98-107 [facility] Comment on above: Performed By: #### C MP, UA, LIPID, TSH3, CBC, URMACRERAT, LILLIANA, FE and TIBC #### [address] Color of Urine by AutoOrdere d By: OMID QUAN on 12-07-2024 Color (U) Light-yellow Yellow [facility] Comment on above: Order Comment: Name Collection Type:: Clean-Voided Midstream Performed By: #### C MP, UA, LIPID, TSH3, CBC, URMACRERAT, LILLIANA, FE and TIBC #### [facility] [address] Comprehensive Metabolic Pane soniya 12-07-2024 Albumin [Mass/Vol] 3.8 g/dL Normal 3.5-5.7 [facility] Comment on above: Performed By: #### C MP, UA, LIPID, TSH3, CBC, URMACRERAT, LILLIANA, FE and TIBC #### [facility] [address] [place] [address] [place] GFR/1.73 sq M.predicted MDRD (S/P/Bld) [Vol rate/Area] mL/min/{1.73_m2} Normal [facility] Comment on above: Performed By: #### C MP, UA, LIPID, TSH3, CBC, URMACRERAT, LILLIANA, FE and TIBC #### [facility] [address] [place] [id number] [facility] Comprehensive metabolic pane soniya 12-07-2024 Albumin [Mass/Vol] 3.8 g/dL 3.5 - 5.7 g/dL [facility] Albumin/Globulin [Mass ratio] 1.4 {ratio} [facility] ALP [Catalytic activity/Vol] 56 U/L 34 - 104 U/L [facility] ALT [Catalytic activity/Vol] 29 U/L 7 - 52 U/L [facility] Anion gap [Moles/Vol] 11.2 mmol/L 6.0 - 15.0 [facility] AST [Catalytic activity/Vol] 20 U/L 13 - 39 U/L [facility] Bilirubin [Mass/Vol] 0.4 mg/dL 0.3 - 1 .0 mg/dL [facility] Calcium [Mass/Vol] 9 mg/dL 8.6 - 10. 3 mg/dL [facility] Chloride [Moles/Vol] 101 mmol/L 98 - 10 7 mmol/L [facility] CO2 [Moles/Vol] 31 mmol/L 21.0 - 31.0 mmol/L [facility] Creatinine (U) [Mass/Vol] 0.5 mg/dL Low 0.60 - 1.20 mg/dL [facility] ESTIMATED GFR [facility] Globulin (S) [Mass/Vol] 2.7 g/dL [facility] Glucose [Mass/Vol] 109 mg/dL High 70 - 100 mg/dL [facility] Comment on above: Random Glucose Refer ence Range is dependent on time and content of last meal. Glucose of more than 200 mg/dL in a nonstressed, ambulatory subject supports the diagnosis of Diabetes Mellitus. ADA recommended reference range Interpretation and review of laboratory results Abnormal [facility] Potassium [Moles/Vol] 4.2 mmol/L 3.5 - 5.1 mmol/L [facility] Protein [Mass/Vol] 6.5 g/dL 6.4 - 8.9 g/dL [facility] Sodium [Moles/Vol] 139 mmol/L 136 - 145 mmol/L [facility] Urea nitrogen [Mass/Vol] 12 mg/dL 7 - 25 mg/dL [facility] Creatinine [Mass/volume] in Serum or PlasmaOrdered By: OMID QUAN on 12-07-2024 Creatinine [Mass/Vol] 0.50 mg/dL Low 0.60-1.20 [facility] Comment on above: Performed By: #### C MP, UA, LIPID, TSH3, CBC, URMACRERAT, LILLIANA, FE and TIBC #### [facility] [address] Creatinine [Mass/volume] in UrineOrdered By: OMID QUAN on 12-07-2024 Creatinine (U) [Mass/Vol] 75.00 mg/dL [facility] Comment on above: No reference range e stablished Dipstick and Microscopicon 0 12-07-2024 Bacteria,Urine None Seen Normal None Seen [facility] Comment on above: Order Comment: Name Collection Type:: Clean-Voided Midstream Performed By: #### C MP, UA, LIPID, TSH3, CBC, URMACRERAT, LILLIANA, FE and TIBC #### [place] [address] [place] Bilirubin,Urine Negative Normal Negative [facility] Comment on above: Order Comment: Name Collection Type:: Clean-Voided Midstream Performed By: #### C MP, UA, LIPID, TSH3, CBC, URMACRERAT, LILLIANA, FE and TIBC #### [facility] [address] [place] [address] [place] Glucose Ql (U) Normal Normal Normal [facility] Comment on above: Order Comment: Name Collection Type:: Clean-Voided Midstream Performed By: #### C MP, UA, LIPID, TSH3, CBC, URMACRERAT, LILLIANA, FE and TIBC #### [facility] [address] Hyaline Casts,Urine None Normal 0-8 [facility] Comment on above: Order Comment: Name Collection Type:: Clean-Voided Midstream Performed By: #### C MP, UA, LIPID, TSH3, CBC, URMACRERAT, LILLIANA, FE and TIBC #### [address] Mucus,Urine Rare Normal [facility] Comment on above: Order Comment: Name Collection Type:: Clean-Voided Midstream Result Comment: PERF ORMED BY: [place] [address] PATHOLOGIST PIN MACHINE OPERATOR MARIUM AVALOS M.D. Performed By: #### C MP, UA, LIPID, TSH3, CBC, URMACRERAT, LILLIANA, FE and TIBC #### [address] Nitrite,Urine Negative Normal Negative [facility] Comment on above: Order Comment: Name Collection Type:: Clean-Voided Midstream Performed By: #### C MP, UA, LIPID, TSH3, CBC, URMACRERAT, LILLIANA, FE and TIBC #### [place] [address] [place] Occult Blood,Urine Negative Normal Negative [facility] Comment on above: Order Comment: Name Collection Type:: Clean-Voided Midstream Performed By: #### C MP, UA, LIPID, TSH3, CBC, URMACRERAT, LILLIANA, FE and TIBC #### [address] Protein,Urine Negative Normal Negative [facility] Comment on above: Order Comment: Name Collection Type:: Clean-Voided Midstream Performed By: #### C MP, UA, LIPID, TSH3, CBC, URMACRERAT, LILLIANA, FE and TIBC #### [place] [address] [place] RBC,Urine 1-2 Normal 0-4 [facility] Comment on above: Order Comment: Name Collection Type:: Clean-Voided Midstream Performed By: #### C MP, UA, LIPID, TSH3, CBC, URMACRERAT, LILLIANA, FE and TIBC #### [address] Specificy [place],Urine 1.023 Normal 1.001-1.03 0 [facility] Comment on above: Order Comment: Name Collection Type:: Clean-Voided Midstream Performed By: #### C MP, UA, LIPID, TSH3, CBC, URMACRERAT, LILILANA, FE and TIBC #### [address] Squamous Epithelial Cell,Urine 1-2 Normal 0-2 [facility] Comment on above: Order Comment: Name Collection Type:: Clean-Voided Midstream Performed By: #### C MP, UA, LIPID, TSH3, CBC, URMACRERAT, LILLIANA, FE and TIBC #### [address] Urobilinogen,Urine Normal Normal Normal [facility] Comment on above: Order Comment: Name Collection Type:: Clean-Voided Midstream Performed By: #### C MP, UA, LIPID, TSH3, CBC, URMACRERAT, LILLIANA, FE and TIBC #### [address] WBC,Urine 1-2 Normal 0-4 [facility] Comment on above: Order Comment: Name Collection Type:: Clean-Voided Midstream Performed By: #### C MP, UA, LIPID, TSH3, CBC, URMACRERAT, LILLIANA, FE and TIBC #### [address] ESR (Bld) [Velocity]on 12-07 Interpretation and review of laboratory results Abnormal [facility] Epithelial cells.squamous [# /area] in Urine sediment by Automated countOrdered By: OMID QUAN on 12-07-2024 Epithelial cells.squamous Auto (Urine sed) [#/Area] 1-2 [HPF] 0-2 [facility] Erythrocyte Sedimentation Ra frank 12-07-2024 ESR (Bld) [Velocity] 22 mm/h High 0-19 [facility] Comment on above: Result Comment: PERF ORMED BY: [place] [address] PATHOLOGIST PIN MACHINE OPERATOR MARIUM AVALOS M.D. Performed By: #### C MP, UA, LIPID, TSH3, CBC, URMACRERAT, LILLIANA, FE and TIBC #### [address] Erythrocyte sedimentation ra te by Photometric methodOrdered By: OMID QUAN on 12-07-2024 ESR Photometric method (Bld) [Velocity] 22 mm/hr High 0-19 [facility] Erythrocytes [#/area] in Uri ne sediment by Automated countOrdered By: OMID QUAN on 12-07-2024 RBC Auto (Urine sed) [#/Area] 1-2 [HPF] 0-4 [facility] Free K+L LT Chains, Qn, Son 12-07-2024 Free [place] Light Chains, S 12.3 mg/L Normal 3.3-19.4 [facility] Comment on above: Performed By: #### C MP, UA, LIPID, TSH3, CBC, URMACRERAT, LILLIANA, FE and TIBC #### [address] Free [place] Light Chains, S 14.2 mg/L Normal 5.7-26.3 [facility] Comment on above: Performed By: #### C MP, UA, LIPID, TSH3, CBC, URMACRERAT, LILLIANA, FE and TIBC #### [address] [place]/Lambda Ratio, S 0.87 Normal 0.26-1.65 [facility] Comment on above: Result Comment: Perf ormed at: - [facility] [address] [id number] Air Hammer Stripper: Ramirez Ca PhD, Phone: [phone] PERFORMED BY: [place] [address] PATHOLOGIST PIN MACHINE OPERATOR MARIUM AVALOS M.D. Performed By: #### C MP, UA, LIPID, TSH3, CBC, URMACRERAT, LILLIANA, FE and TIBC #### [facility] [address] [place] [address] [place] Glucose [Mass/volume] in Ser um or PlasmaOrdered By: OMID QUAN on 12-07-2024 Glucose [Mass/Vol] 109 mg/dL High 70-100 [facility] Comment on above: ADA recommended refe rence rangeRandom Glucose Reference Range is dependent on time and content of last meal. Glucose of more than 200 mg/dL in a nonstressed, ambulatory subject supports the diagnosis of Diabetes Mellitus. Result Comment: [place] om Glucose Reference Range is dependent on time and content of last meal. Glucose of more than 200 mg/dL in a nonstressed, ambulatory subject supports the diagnosis of Diabetes Mellitus. ADA recommended reference range Performed By: #### C MP, UA, LIPID, TSH3, CBC, URMACRERAT, LILLIANA, FE and TIBC #### [facility] [address] [place] [id number] [place] Glucose [Mass/volume] in Uri ne by Test stripOrdered By: OMID QUAN on 12-07-2024 Glucose Test strip (U) [Mass/Vol] Normal mg/dL Normal [facility] Hemoglobin A1c/Hemoglobin.to hiram in BloodOrdered By: OMID QUAN on 12-07-2024 HbA1c (Bld) [Mass fraction] 5.7 % High 4.3-5.6 [facility] Comment on above: Increased risk for d iabetes: 5.7 - 6.4diabetes: >6.4glycemic control for adults with diabetes: <7.0 Result Comment: Incr eased risk for diabetes: 5.7 - 6.4 diabetes: >6.4 glycemic control for adults with diabetes: <7.0 Performed By: #### C MP, UA, LIPID, TSH3, CBC, URMACRERAT, LILLIANA, FE and TIBC #### [facility] [address] [place] [address] [facility] Hemoglobin Test strip Ql (U) Ordered By: OMID QUAN on 12-07-2024 Hemoglobin Ql (U) Negative Negative [facility] Hemoglobin a1c with eagon Glucose [Mass/Vol] 117 mg/dL [facility] HbA1c (Bld) [Mass fraction] 5.7 % High 4.3 - 5.6 % [facility] Comment on above: Increased risk for d iabetes: 5.7 - 6.4 diabetes: >6.4 glycemic control for adults with diabetes: <7.0 Interpretation and review of laboratory results Abnormal [facility] High Sensitive CRPon 025 High Sensitive CRP 15.7 mg/L High 0.0-0.9 [facility] Comment on above: Result Comment: [...] for estimation of CVD risk. PERFORMED BY: [place] [address] PATHOLOGIST PIN MACHINE OPERATOR MARIUM AVALOS M.D. Performed By: #### C MP, UA, LIPID, TSH3, CBC, URMACRERAT, LILLIANA, FE and TIBC #### [facility] [address] [place] [address] Hyaline casts [#/area] in Ur ine sediment by Automated countOrdered By: OMID QUAN on 12-07-2024 Hyaline casts Auto (Urine sed) [#/Area] None [LPF] 0-8 [facility] Ketones [Presence] in Urine by Test stripOrdered By: OMID QUAN on 12-07-2024 Ketones Ql (U) Negative Negative [facility] Comment on above: Order Comment: Name Collection Type:: Clean-Voided Midstream Performed By: #### C MP, UA, LIPID, TSH3, CBC, URMACRERAT, LILILANA, FE and TIBC #### [address] Leukocyte esterase [Presence ] in Urine by Test stripOrdered By: OMID QUAN on 12-07-2024 Leukocyte esterase Test strip Ql (U) Negative Negative [facility] Comment on above: Order Comment: Name Collection Type:: Clean-Voided Midstream Performed By: #### C MP, UA, LIPID, TSH3, CBC, URMACRERAT, LILLIANA, FE and TIBC #### [address] Leukocytes [#/area] in Urine sediment by Automated countOrdered By: OMID QUAN on 12-07-2024 WBC Auto (Urine sed) [#/Area] 1-2 [HPF] 0-4 [facility] Magnesiumon 12-07-2024 Magnesium [Mass/Vol] 1.9 mg/dL 1.9 - 2 .7 mg/dL [facility] Magnesium [Mass/volume] in S zakia or PlasmaOrdered By: OMID QUAN on 12-07-2024 Magnesium [Mass/Vol] 1.9 mg/dL 1.9-2.7 [facility] Comment on above: Result Comment: PERF ORMED BY: [place] [address] PATHOLOGIST PIN MACHINE OPERATOR MARIUM AVALOS M.D. Performed By: #### C MP, UA, LIPID, TSH3, CBC, URMACRERAT, LILLIANA, FE and TIBC #### [address] MicroAlb Creat Ratio,Uon Creatinine, Urine (Random) 75.00 mg/dL Normal [facility] Comment on above: Result Comment: No r eference range established Performed By: #### C MP, UA, LIPID, TSH3, CBC, URMACRERAT, LILLIANA, FE and TIBC #### [address] Microalbumin/Creatini ne Ratio Not performed Normal 0.0-30.0 [facility] Comment on above: Result Comment: PERF ORMED BY: [place] [address] PATHOLOGIST PIN MACHINE OPERATOR MARIUM AVALOS M.D. Performed By: #### C MP, UA, LIPID, TSH3, CBC, URMACRERAT, LILLIANA, FE and TIBC #### [facility] [address] Microalbumin [Mass/volume] i n UrineOrdered By: OMID QUAN on 12-07-2024 Albumin DL <= 20 mg/L (U) [Mass/Vol] mg/dL 0.0-1.8 [facility] Comment on above: Performed By: #### C MP, UA, LIPID, TSH3, CBC, URMACRERAT, LILLIANA, FE and TIBC #### [facility] [address] Microalbumin/Creatinine rati o panel (U)on 12-07-2024 Albumin [Mass/Vol] mg/dL 0.0 - 1.8 mg/dL [facility] Creatinine spec 2 (U) [Mass/Vol] 75 mg/dL [facility] Comment on above: No reference range e stablished MICROALBUMIN/CREATINI NE RATIO Not performed 0.0 - 30.0 mg/g [facility] Mucus [Presence] in Urine by AutomatedOrdered By: OMID QUAN on 12-07-2024 Mucus Auto Ql (U) Rare [LPF] [facility] Nitrite Test strip Ql (U)Ord ered By: OMID QUAN on 12-07-2024 Nitrite Ql (U) Negative Negative [facility] No Panel Informationon 12-07 [facility] No Panel InformationOrdered By: OMID QUAN on 12-07-2024 Estimated GFR (CKD-EPI) > 60.0 mL/Min [facility] Creatinine Clearance (Chem N/A [facility] Protein Electrophoresis M-Chacorta Not observed g/dL Not Observed [facility] Protein Electrophoresis Note Comment . [facility] Comment on above: Protein electrophore sis scan will follow via computer,mail, or rouge sifter delivery. Potassium [Moles/volume] in Serum or PlasmaOrdered By: OMID QUAN on 12-07-2024 Potassium [Moles/Vol] 4.2 mmol/L 3.5-5.1 [facility] Comment on above: Performed By: #### C MP, UA, LIPID, TSH3, CBC, URMACRERAT, LILLIANA, FE and TIBC #### [address] Protein Electrophoresis, Ser umon 12-07-2024 Xelqa-6-Unuhojmx 0.2 g/dL Normal 0.0-0.4 [facility] Comment on above: Performed By: #### C MP, UA, LIPID, TSH3, CBC, URMACRERAT, LILLIANA, FE and TIBC #### [address] Odnvi-3-Labzocum 0.9 g/dL Normal 0.4-1.0 [facility] Comment on above: Performed By: #### C MP, UA, LIPID, TSH3, CBC, URMACRERAT, LILLIANA, FE and TIBC #### [address] Beta Globulin 1.1 g/dL Normal 0.7-1.3 [facility] Comment on above: Performed By: #### C MP, UA, LIPID, TSH3, CBC, URMACRERAT, LILLIANA, FE and TIBC #### [address] Gamma Globulin 0.9 g/dL Normal 0.4-1.8 [facility] Comment on above: Performed By: #### C MP, UA, LIPID, TSH3, CBC, URMACRERAT, LILLIANA, FE and TIBC #### [address] M-Chacorta Not Observed Normal Not Observed [facility] Comment on above: Performed By: #### C MP, UA, LIPID, TSH3, CBC, URMACRERAT, LILLIANA, FE and TIBC #### [address] SPE-Note Comment Normal . [facility] Comment on above: Result Comment: Prot ein electrophoresis scan will follow via computer, mail, or rouge sifter delivery. Performed By: #### C MP, UA, LIPID, TSH3, CBC, URMACRERAT, LILLIANA, FE and TIBC #### [address] Protein Test strip (U) [Mass /Vol]Ordered By: OMID QUAN on 12-07-2024 Protein (U) [Mass/Vol] Negative Negative [facility] Protein [Mass/volume] in Ser um or PlasmaOrdered By: OMID QUAN on 12-07-2024 Protein [Mass/Vol] 6.5 g/dL 6.4-8.9 [facility] Comment on above: Performed By: #### C MP, UA, LIPID, TSH3, CBC, URMACRERAT, LILLIANA, FE and TIBC #### [address] Rheumatoid Factoron 12-08-19 25 Rheumatoid Factor 10.4 Normal <14.0 [facility] Comment on above: Result Comment: Perf ormed at: CB - [facility] [address] [id number] Air Hammer Stripper: Ramirez Ca PhD, Phone: [phone] Performed By: #### C MP, UA, LIPID, TSH3, CBC, URMACRERAT, LILLIANA, FE and TIBC #### [address] Sedimentation rate, automate don 12-07-2024 ESR (Bld) [Velocity] 22 mm/h High 0 - 19 [facility] Serum free kappa light chain measurementOrdered By: OMID QUAN on 12-07-2024 Immunoglobulin light chains.kappa.free (S) [Mass/Vol] 12.3 mg/L 3.3-19.4 [facility] Serum globulin measurement ( mass/volume)Ordered By: OMID QUAN on 12-07-2024 Globulin (S) [Mass/Vol] 3.1 g/dL 2.2-3.9 [facility] Comment on above: Performed By: #### C MP, UA, LIPID, TSH3, CBC, URMACRERAT, LILLIANA, FE and TIBC #### [address] Serum globulin measurement b y calculation (mass/volume)Ordered By: OMID QUAN on 12-07-2024 Globulin (S) [Mass/Vol] 2.7 g/dL [facility] Comment on above: Performed By: #### C MP, UA, LIPID, TSH3, CBC, URMACRERAT, LILLIANA, FE and TIBC #### [facility] [address] Serum homogeneous pattern an tinuclear antibody (WILL) titerOrdered By: OMID QUAN on 12-07-2024 Homogenous nuclear Ab pattern (S) [Titer] N/A [facility] Serum immunoglobulin free ka ppa light chains/immunoglobulin free lambda light chainsOrdered By: OMID QUAN on 12-07-2024 Immunoglobulin light chains.kappa.free/Imm unoglobulin light chains.lambda.free (S) [Mass ratio] 0.87 0.26-1.65 [facility] Comment on above: Performed at: [facility] [place] [id number] Director: Ramirez Ca PhD, Phone: [phone] Serum nuclear antibody titer Ordered By: OMID QUAN on 12-07-2024 Nuclear Ab (S) [Titer] Negative . [facility] Comment on above: Negative <1:80 Borde rline 1:80 Positive >1:80ICAP nomenclature: AC-0For more information about Hep-2 cell patterns useANApatterns.org, the official website for theInternational Consensus on Antinuclear Antibody (WILL)Patterns (ICAP).Performed at: [facility] [address] [id number] Director: Ramirez Ca PhD, Phone: [phone] Serum or plasma albumin merari urement (mass/volume)Ordered By: OMID QUAN on 12-07-2024 Albumin [Mass/Vol] 3.3 g/dL 2.9-4.4 [facility] Comment on above: Performed By: #### C MP, UA, LIPID, TSH3, CBC, URMACRERAT, LILLIANA, FE and TIBC #### [facility] [address] Serum or plasma albumin/glob ulin mass ratioOrdered By: OMID QUAN on 12-07-2024 Albumin/Globulin [Mass ratio] 1.4 {ratio} [facility] Comment on above: Performed By: #### C MP, UA, LIPID, TSH3, CBC, URMACRERAT, LILLIANA, FE and TIBC #### [facility] [address] Albumin/Globulin [Mass ratio] 1.1 {ratio} 0.7-1.7 [facility] Comment on above: Performed By: #### C MP, UA, LIPID, TSH3, CBC, URMACRERAT, LILLIANA, FE and TIBC #### [facility] [address] Serum or plasma alpha 1 glob ulin measurement by electrophoresis (mass/volume)Ordered By: OMID QUAN on 12-07-2024 Alpha 1 globulin Elph [Mass/Vol] 0.2 g/dL 0.0-0.4 [facility] Serum or plasma alpha 2 glob ulin measurement by electrophoresis (mass/volume)Ordered By: OMID QUAN on 12-07-2024 Alpha 2 globulin Elph [Mass/Vol] 0.9 g/dL 0.4-1.0 [facility] Serum or plasma anion gap de terminationOrdered By: OMID QUAN on 12-07-2024 Anion gap [Moles/Vol] 11.2 mmol/L 6.0-15.0 [facility] Comment on above: Performed By: #### C MP, UA, LIPID, TSH3, CBC, URMACRERAT, LILLIANA, FE and TIBC #### [facility] [address] Serum or plasma beta globuli n measurement by electrophoresis (mass/volume)Ordered By: OMID QUAN on 12-07-2024 Beta globulin Elph [Mass/Vol] 1.1 g/dL 0.7-1.3 [facility] Serum or plasma gamma globul in measurement by electrophoresis (mass/volume)Ordered By: OMID QUAN on 12-07-2024 Gamma globulin Elph [Mass/Vol] 0.9 g/dL 0.4-1.8 [facility] Serum or plasma immunoglobul in free lambda light chains measurement (mass/volume)Ordered By: OMID QUAN on 12-07-2024 Immunoglobulin light chains.lambda.free [Mass/Vol] 14.2 mg/L 5.7-26.3 [facility] Serum or plasma rheumatoid f actor measurement (units/volume)Ordered By: OMID QUAN on 12-07-2024 Rheumatoid factor Qn 10.4 [IU]/mL <14.0 [facility] Comment on above: Performed at: [address] Director: Ramirez Ca PhD, Phone: [phone] Serum total protein measurem entOrdered By: OMID QUAN on 12-07-2024 Protein [Mass/Vol] 6.4 g/dL 6.0-8.5 [facility] Comment on above: Performed By: #### C MP, UA, LIPID, TSH3, CBC, URMACRERAT, LILLIANA, FE and TIBC #### [facility] [address] [place] [address] [place] Sodium [Moles/volume] in Ser um or PlasmaOrdered By: OMID QUAN on 12-07-2024 Sodium [Moles/Vol] 139 mmol/L 136-145 [facility] Comment on above: Performed By: #### C MP, UA, LIPID, TSH3, CBC, URMACRERAT, LILLIANA, FE and TIBC #### [facility] [address] Specific gravity Test strip (U) [Rel density]Ordered By: OMID QUAN on 12-07-2024 Specific gravity (U) [Rel density] 1.023 1.001-1.03 0 [facility] Urea nitrogen [Mass/volume] in Serum or PlasmaOrdered By: OMID QUAN on 12-07-2024 Urea nitrogen [Mass/Vol] 12 mg/dL 7-25 [facility] Comment on above: Performed By: #### C MP, UA, LIPID, TSH3, CBC, URMACRERAT, LILLIANA, FE and TIBC #### [facility] [address] Urine microalbumin/creatinin e mass ratioOrdered By: OMID QUAN on 12-07-2024 Albumin/Creatinine DL <= 20 mg/L (U) [Mass ratio] TNP [facility] Comment on above: Test not performed Urobilinogen Test strip (U) [Mass/Vol]Ordered By: OMID QUAN on 12-07-2024 Urobilinogen (U) [Mass/Vol] Normal mg/dL Normal [facility] X-ray reportOrdered By: Carlie Thacker on 12-07-2024 Study report [facility] [place] [address] [place] [address] XRay Report Signed Patient: Lupe Pickard MR#: [id number] : 1975 Acct:[id number] Age/Sex: 49 / F ADM Date: 5 Loc: XD Room: Type: [facility] Attending Dr: Omid Quan RN, MSN, ANP-C [...] Thacker M.D. 12/07/2024 11:37 AM Dictation Location: [place] [address] Transcribed By: BOB 12/07/24 1137 Dictated By: Rizwana Thacker MD 12/07/24 1137 Signed By: 12/07/24 1137 [facility] Work Phone: XR chest 2V*on 12-07-2024 XR chest 2V* [facility] [place] [address] [place], [place] [id number] XRay Report Signed Patient: Lupe Pickard MR#: [id number] : 1975 Acct:[id number] Age/Sex: 49 / F ADM Date: 12/07/24 Loc: XD Room: Type: [facility] Attending Dr: Omid Quan RN, MSN, ANP-C [...] Thacker M.D. 12/07/2024 11:37 AM Dictation Location: [place] [address] Transcribed By: BOB 12/07/24 1137 Dictated By: Rizwana Thacker MD 12/07/24 1137 Signed By: 12/07/24 1137 Normal [facility] pH of Urine by Test stripOrd ered By: OMID QUAN on 12-07-2024 pH (U) 7.0 [pH] 5.0-9.0 [facility] Comment on above: Order Comment: Name Collection Type:: Clean-Voided Midstream Performed By: #### C MP, UA, LIPID, TSH3, CBC, URMACRERAT, LILLIANA, FE and TIBC #### [facility] [address] [place] [id number] [facility] V[facility] Office/Cl inic Noteon 11-29-2024 [...] tab(s), Oral, Daily, 90 tab(s), Refill(s) 0, [facility], 167, cm, 11/29/24 15:47:00 EDT, Height/Length Dosing, 144.8, kg, 11/29/24 15:47:00 EDT, Weight Dosing Basic Metabolic Panel 2. Sleep apnea (G47.30: Sleep apnea, unspecified) I recommend Dr. Coon prescribe Wegovy to help with her sleep apnea as well as with her significant weight gain. Ordered: hydrochlorothiazide-losart an, 1 tab(s), Oral, Daily, 90 tab(s), Refill(s) 0, [facility], 167, cm, 11/29/24 15:47:00 EDT, [...] guidance (12/14/ (more content not included)... Normal [facility] Comment on above: Result Comment: Elec tronically Signed By: Vickie PELAYO, Santos Katz\.br\Date and Time Signed: 11/29/24 16:57 EDT X-ray reportOrdered By: Michael Perez on 11-29-2024 Study report [facility] [place] [address] XRay Report Signed Patient: Lupe Pickard MR#: [id number] : 1975 Acct:[id number] Age/Sex: 49 / F ADM Date: 5 Loc: XD Room: Type: [facility] Attending Dr: Dalia Dennis PLANT HEALTH MANAGER-C Copies to: Dalia Dennis NP~ Ordering Provider: [...] Perez M.D. 11/29/2024 2:03 PM Dictation Location: [place] [address] Transcribed By: [facility] 11/29/24 1403 Dictated By: Larry Perez MD 11/29/241401 Signed By: 11/29/24 140 [facility] Work Phone: XR lumbar spine 2-3V*on XR lumbar spine 2-3V* [facility] Main [place] [address] [place] [address] XRay Report Signed Patient: Lupe Pickard MR#: [id number] : 1975 Acct:[id number] Age/Sex: 49 / F ADM Date: 11/29/24 Loc: XD Room: Type: [facility] Attending Dr: Dalia Dennis PLANT HEALTH MANAGER-C Copies to: Dalia Dennis NP Ordering Provider: [...] Perez M.D. 11/29/2024 2:03 PM Dictation Location: [place] [address] Transcribed By: [facility] 11/29/24 1403 Dictated By: Larry Perez MD 11/29/24 1402 Signed By: 11/29/24 1403 Normal [facility] Basic Metabolic Panelon GFR/1.73 sq M.predicted MDRD (S/P/Bld) [Vol rate/Area] mL/min/{1.73_m2} Normal [facility] Comment on above: Performed By: #### B MP #### [address] Calcium [Mass/volume] in Ser um or PlasmaOrdered By: Dalia Dennis on 11-27-2024 Calcium [Mass/Vol] 8.6 mg/dL 8.6-10.3 [facility] Comment on above: Result Comment: PERF ORMED BY: [place] [address] PATHOLOGIST PIN MACHINE OPERATOR MARIUM AVALOS M.D. Performed By: #### B MP #### [address] Carbon dioxide, total [Moles /volume] in Serum or PlasmaOrdered By: Dalia Dennis on 11-27-2024 CO2 [Moles/Vol] 31.9 mmol/L High 21.0-31.0 [facility] Comment on above: Performed By: #### B MP #### [address] Chloride [Moles/volume] in S zakia or PlasmaOrdered By: Dalia Dennis on 11-27-2024 Chloride [Moles/Vol] 101 mmol/L 98-107 [facility] Comment on above: Performed By: #### B MP #### [address] Creatinine [Mass/volume] in Serum or PlasmaOrdered By: Dalia Dennis on 11-27-2024 Creatinine [Mass/Vol] 0.53 mg/dL Low 0.60-1.20 [facility] Comment on above: Performed By: #### B MP #### [address] Glucose [Mass/volume] in Ser um or PlasmaOrdered By: Dalia Dennis on 11-27-2024 Glucose [Mass/Vol] 72 mg/dL 70-100 [facility] Comment on above: ADA recommended refe rence rangeRandom Glucose Reference Range is dependent on time and content of last meal. Glucose of more than 200 mg/dL in a nonstressed, ambulatory subject supports the diagnosis of Diabetes Mellitus. Result Comment: [place] om Glucose Reference Range is dependent on time and content of last meal. Glucose of more than 200 mg/dL in a nonstressed, ambulatory subject supports the diagnosis of Diabetes Mellitus. ADA recommended reference range Performed By: #### B MP #### [address] No Panel InformationOrdered By: Dalia Dennis on 11-27-2024 Estimated GFR (CKD-EPI) > 60.0 mL/Min [facility] Creatinine Clearance (Chem N/A [facility] Potassium [Moles/volume] in Serum or PlasmaOrdered By: Dalia Dennis on 11-27-2024 Potassium [Moles/Vol] 4.2 mmol/L 3.5-5.1 [facility] Comment on above: Performed By: #### B MP #### [address] Serum or plasma anion gap de terminationOrdered By: Dalia Dennis on 11-27-2024 Anion gap [Moles/Vol] 10.3 mmol/L 6.0-15.0 [facility] Comment on above: Performed By: #### B MP #### [address] Sodium [Moles/volume] in Ser um or PlasmaOrdered By: Dalia Dennis on 11-27-2024 Sodium [Moles/Vol] 139 mmol/L 136-145 [facility] Comment on above: Performed By: #### B MP #### [address] Thyrotropin [Units/volume] i n Serum or PlasmaOrdered By: Kenyetta Dove on 11-27-2024 TSH Qn 1.89 m[IU]/L 0.45-5.33 [facility] Comment on above: Result Comment: PERF ORMED BY: [place] [address] PATHOLOGIST PIN MACHINE OPERATOR MARIUM AVALOS M.D. Performed By: #### C MP, UA, LIPID, TSH3, CBC, URMACRERAT, LILLIANA, FE and TIBC #### [address] Thyroxine (T4) free [Mass/vo lume] in Serum or PlasmaOrdered By: Kenyetta Dove on 11-27-2024 Free T4 [Mass/Vol] 0.90 ng/dL 0.61-1.12 [facility] Comment on above: Performed By: #### C MP, UA, LIPID, TSH3, CBC, URMACRERAT, LILLIANA, FE and TIBC #### [facility] [address] Triiodothyronine (T3) Freeon 11-27-2024 Triiodothyronine (T3) Free 3.12 pg/mL Normal 2.50-3.90 [facility] Comment on above: Result Comment: PERF ORMED BY: [place] [address] PATHOLOGIST PIN MACHINE OPERATOR MARIUM AVALOS M.D. Performed By: #### C MP, UA, LIPID, TSH3, CBC, URMACRERAT, LILLIANA, FE and TIBC #### [address] Triiodothyronine (T3) Free [ Mass/volume] in Serum or PlasmaOrdered By: Kenyetta Dove on 11-27-2024 Free T3 [Mass/Vol] 3.12 pg/mL 2.50-3.90 [facility] Urea nitrogen [Mass/volume] in Serum or PlasmaOrdered By: Dalia Dennis on 11-27-2024 Urea nitrogen [Mass/Vol] 9 mg/dL 12-21 [facility] Comment on above: Performed By: #### B MP #### [address] Ambulatory Visit Summaryon 0 11-26-2024 Ambulatory Visit Summary Ambulatory Visit Summary CATARINO LUPE M :1975 Visit Date:11/26/2024 Ambulatory Visit Instructions Your Diagnosis Overactive bladder Your Care Team Attending Physician - LAITH PELAYO, Donya Weller Primary Care Physician - SHAGGY PELAYO, MELISSA Rodriguez This Is Your Medications List Contact prescribing [...] Following Appointments Follow Up with LAITH PELAYO, FILIPPO Weeks When: Where: [facility] [address] [place] [address]- Medications What How Much When Why [...] reflux dis (more content not included)... Normal [facility] Urology Office/Clinic Noteon 11-26-2024 Urology Office/Clinic [...] MD, URL [address] [place] [id number]- Additional Instructions: schedule Botox Patient Education Botulinum Toxin Bladder Injection IShayna, personally scribed for Dr. Ozuna on 11/26/2024 10:47:25. . Documentation recorded by the scribe, Shayna Galaviz, accurately reflects the services(s) I performed and decisions made by me. Authenticated by Dr. Ozuna on 11/26/2024 11:02:18. Portions of this record may have been created with voice recognition artificial intelligence software, specifically [employer], [employer] software and or [employer]. Substitutions may have occurred due to the [...] Shoulder pa (more content not included)... Normal [facility] Comment on above: Result Comment: Elec tronically Signed By: Donya OZUNA MD\.br\Date and Time Signed: 11/26/24 11:03 EDT\.br\Electronically Co-Signed By: Shayna Galaviz.br\Date and Time Co-Signed: 11/26/24 10:47 EDT BNP ser/plasOrdered By: Dalia Dennis on 11-21-2024 Natriuretic peptide B (Bld) [Mass/Vol] 54.0 pg/mL 5-100 [facility] Comment on above: Result Comment: PERF ORMED BY: [place] [address] PATHOLOGIST PIN MACHINE OPERATOR MARIUM AVALOS M.D. Performed By: #### C MP, UA, LIPID, TSH3, CBC, URMACRERAT, LILLIANA, FE and TIBC #### [address] Basic Metabolic Panelon 10-29 GFR/1.73 sq M.predicted MDRD (S/P/Bld) [Vol rate/Area] mL/min/{1.73_m2} Normal [facility] Comment on above: Performed By: #### B MP #### [place] [address] [place] Calcium [Mass/volume] in Ser um or PlasmaOrdered By: Dalia Dennis on 11-21-2024 Calcium [Mass/Vol] 8.8 mg/dL 8.6-10.3 [facility] Comment on above: Result Comment: PERF ORMED BY: [place] [address] PATHOLOGIST PIN MACHINE OPERATOR MARIUM AVALOS M.D. Performed By: #### B MP #### [place] [address] [place] Carbon dioxide, total [Moles /volume] in Serum or PlasmaOrdered By: Dalia Dennis on 11-21-2024 CO2 [Moles/Vol] 29.8 mmol/L 21.0-31.0 [facility] Comment on above: Performed By: #### B MP #### [place] [address] [place] Chloride [Moles/volume] in S zakia or PlasmaOrdered By: Dalia Dennis on 11-21-2024 Chloride [Moles/Vol] 103 mmol/L 98-107 [facility] Comment on above: Performed By: #### B MP #### [facility] [address] Creatinine [Mass/volume] in Serum or PlasmaOrdered By: Dalia Dennis on 11-21-2024 Creatinine [Mass/Vol] 0.50 mg/dL Low 0.60-1.20 [facility] Comment on above: Performed By: #### B MP #### [facility] [address] Glucose [Mass/volume] in Ser um or PlasmaOrdered By: Dalia Dennis on 11-21-2024 Glucose [Mass/Vol] 100 mg/dL 70-100 [facility] Comment on above: ADA recommended refe rence rangeRandom Glucose Reference Range is dependent on time and content of last meal. Glucose of more than 200 mg/dL in a nonstressed, ambulatory subject supports the diagnosis of Diabetes Mellitus. Result Comment: [place] [facility] Glucose Reference Range is dependent on time and content of last meal. Glucose of more than 200 mg/dL in a nonstressed, ambulatory subject supports the diagnosis of Diabetes Mellitus. ADA recommended reference range Performed By: #### B MP #### [address] No Panel InformationOrdered By: Dalia Dennis on 11-21-2024 Estimated GFR (CKD-EPI) > 60.0 mL/Min [facility] Creatinine Clearance (Chem N/A [facility] Potassium [Moles/volume] in Serum or PlasmaOrdered By: Dalia Dennis on 11-21-2024 Potassium [Moles/Vol] 4.2 mmol/L 3.5-5.1 [facility] Comment on above: Performed By: #### B MP #### [address] Serum or plasma anion gap de terminationOrdered By: Dalia Dennis on 11-21-2024 Anion gap [Moles/Vol] 9.4 mmol/L 6.0-15.0 [facility] Comment on above: Performed By: #### B MP #### [address] Sodium [Moles/volume] in Ser um or PlasmaOrdered By: Dalia Dennis on 11-21-2024 Sodium [Moles/Vol] 138 mmol/L 136-145 [facility] Comment on above: Performed By: #### B MP #### [address] Urea nitrogen [Mass/volume] in Serum or PlasmaOrdered By: Dalia Dennis on 11-21-2024 Urea nitrogen [Mass/Vol] 13 mg/dL 12-21 [facility] Comment on above: Performed By: #### B MP #### [address] ECH echo transthoracicon [facility] echo transthoracic [facility] Main [place] [address] [place] [address] Echocardiogram Signed Patient: Lupe Pickard MR#: [id number] : 1975 Acct:[id number] Age/Sex: 49 / F ADM Date: 11/09/24 Loc: Room: Type: [facility] Attending Dr: Tanner Menendez PA-C Ordering Provider: Tanner Menendez PA-C Date of Service: 11/09/24/ ECH/ECH echo transthoracic: EDEMA, SOB Copies to: Ric Asher [facility], [facility] Tanner Menendez PA-C BSA: 2.4 m2 BP: [...] 5.0 mmHg Transcribed By: SCV Performed At: 11/09/2458 Signed By: Ric Asher MD, [facility] 11/09/24 1644 Normal [facility] Adrenocorticotropic Hormone PLon 10-25-[address] 19.5 pg/mL Normal 7.2-63.3 [facility] Comment on above: Order Comment: Comme nt Pre-Cosyntropin Result Comment: ACTH reference interval for samples collected between 7 and 10 AM. Performed at: [facility] [address] [id number] [employer] Stripper: Ramirez Ca PhD, Phone: [phone] PERFORMED BY: [place] [address] PATHOLOGIST PIN MACHINE OPERATOR MARIUM AVALOS M.D. Performed By: #### C MP, UA, LIPID, TSH3, CBC, URMACRERAT, LILLIANA, FE and TIBC #### [address] Cortisol, ACTH Stimulationon 10-25-2024 Cortisol, ACTH Stimulation Normal [facility] Comment on above: Order Comment: Comme nt Pre-Cosyntropin, 30 60 min post Result Comment: [employer] 11.5 Col: 10/25/24 0827 Dominic 30Min 17.0 Col: 10/25/24 0920 Dominic 60Min 22.6 Col: 10/25/24 0947 PERFORMED BY: [place] [address] PATHOLOGIST PIN MACHINE OPERATOR MARIUM AVALOS M.D. Performed By: #### C MP, UA, LIPID, TSH3, CBC, URMACRERAT, LILLIANA, FE and TIBC #### [facility] [address] No Panel InformationOrdered By: Kenyetta Dove on 10-25-2024 Cortisol Response to Stimulation See comment [facility] Comment on above: [employer] 11.5 Col: 10/25/24 0827 Dominic 30Min PENDING RECEIPT Col: 10/25/24 0915 Dominic 60Min PENDING RECEIPT Col: 10/25/24 0945 [employer] 11.5 Col: 10/25/24 0827 Dominic 30Min 17.0 Col: 10/25/24 0920 Dominic 60Min 22.6 Col: 10/25/24 0947 Alanine aminotransferase [En zymatic activity/volume] in Serum or PlasmaOrdered By: Summer Workman on 10-09-2024 ALT [Catalytic activity/Vol] Alanine aminotransferase [Enzymatic activity/volume] in Serum or Plasma 7 [facility] ALT [Catalytic activity/Vol] 15 U/L Normal [facility] Comment on above: Performed By: #### C MP, UA, LIPID, TSH3, CBC, URMACRERAT, LILLIANA, FE and TIBC #### [facility] [address] [place] [address] Albumin [Mass/volume] in Ser um or Plasma by Bromocresol green (BCG) dye binding methoOrdered By: summer on 10-09-2024 Albumin BCG dye [Mass/Vol] Albumin [Mass/volume] in Serum or Plasma by Bromocresol green (BCG) dye binding metho 3.5-5.7 [facility] Albumin BCG dye [Mass/Vol] 3.7 g/dL 3.5-5.7 [facility] Alkaline phosphatase [Enzyma tic activity/volume] in Serum or PlasmaOrdered By: summer on 10-09-2024 ALP [Catalytic activity/Vol] Alkaline phosphatase [Enzymatic activity/volume] in Serum or Plasma 34-104 [facility] ALP [Catalytic activity/Vol] 51 U/L Normal 34-104 [facility] Comment on above: Result Comment: PERF ORMED BY: [place] [address] PATHOLOGIST PIN MACHINE OPERATOR SYLVIA CRUZ M.D. Performed By: #### C MP, UA, LIPID, TSH3, CBC, URMACRERAT, LILLIANA, FE and TIBC #### [address] Aspartate aminotransferase [ Enzymatic activity/volume] in Serum or PlasmaOrdered By: Summer Workman on 10-09-2024 AST [Catalytic activity/Vol] Aspartate aminotransferase [Enzymatic activity/volume] in Serum or Plasma Low 13-39 [facility] AST [Catalytic activity/Vol] 12 U/L Low - [facility] Comment on above: Performed By: #### C MP, UA, LIPID, TSH3, CBC, URMACRERAT, LILLIANA, FE and TIBC #### [address] BNP ser/plasOrdered By: [facility] Work on 10-09-2024 Natriuretic peptide B (Bld) [Mass/Vol] 86.0 pg/mL Normal 5-100 [facility] Comment on above: Result Comment: PERF ORMED BY: [place] [address] PATHOLOGIST PIN MACHINE OPERATOR SYLVIA CRUZ M.D. Performed By: #### C MP, UA, LIPID, TSH3, CBC, URMACRERAT, LILLIANA, FE and TIBC #### [address] Bilirubin.total [Mass/volume ] in Serum or PlasmaOrdered By: summer on 10-09-2024 Bilirubin [Mass/Vol] Bilirubin.total [Mass/volume] in Serum or Plasma 0.3-1.0 [facility] Bilirubin [Mass/Vol] 0.3 mg/dL Normal 0.3-1.0 [facility] Comment on above: Performed By: #### C MP, UA, LIPID, TSH3, CBC, URMACRERAT, LILLIANA, FE and TIBC #### [facility] [address] Calcium [Mass/volume] in Ser um or PlasmaOrdered By: Summer Workman on 10-09-2024 Calcium [Mass/Vol] Calcium [Mass/volume ] in Serum or Plasma 8.6-10.3 [facility] Calcium [Mass/Vol] 8.6 mg/dL Normal 8.6-10.3 [facility] Comment on above: Performed By: #### C MP, UA, LIPID, TSH3, CBC, URMACRERAT, LILLIANA, FE and TIBC #### [facility] [address] Carbon dioxide, total [Moles /volume] in Serum or PlasmaOrdered By: Summer Workman on 10-09-2024 CO2 [Moles/Vol] Carbon dioxide, tota l [Moles/volume] in Serum or Plasma High 21.0-31.0 [facility] CO2 [Moles/Vol] 31.1 mmol/L High 21.0-31.0 [facility] Comment on above: Performed By: #### C MP, UA, LIPID, TSH3, CBC, URMACRERAT, LILLIANA, FE and TIBC #### [facility] [address] Chloride [Moles/volume] in S zakia or PlasmaOrdered By: Summer Workman on 10-09-2024 Chloride [Moles/Vol] Chloride [Moles/vol ume] in Serum or Plasma 98-107 [facility] Chloride [Moles/Vol] 103 mmol/L Normal 98-107 [facility] Comment on above: Performed By: #### C MP, UA, LIPID, TSH3, CBC, URMACRERAT, LILLIANA, FE and TIBC #### [facility] [address] Comprehensive Metabolic Pane soniya 10-09-2024 Albumin [Mass/Vol] 3.7 g/dL Normal 3.5-5.7 [facility] Comment on above: Performed By: #### C MP, UA, LIPID, TSH3, CBC, URMACRERAT, LILLIANA, FE and TIBC #### [facility] [address] GFR/1.73 sq M.predicted MDRD (S/P/Bld) [Vol rate/Area] mL/min/{1.73_m2} Normal [facility] Comment on above: Performed By: #### C MP, UA, LIPID, TSH3, CBC, URMACRERAT, LILLIANA, FE and TIBC #### [facility] [address] Creatinine [Mass/volume] in Serum or PlasmaOrdered By: Tanner Menendez on 10-09-2024 Creatinine [Mass/Vol] Creatinine [Mass/v olume] in Serum or Plasma Low 0.60-1.20 [facility] Creatinine [Mass/Vol] 0.45 mg/dL Low 0.60-1.20 [facility] Comment on above: Performed By: #### C MP, UA, LIPID, TSH3, CBC, URMACRERAT, LILLIANA, FE and TIBC #### [facility] [address] Creatinine [Mass/volume] in UrineOrdered By: Tanner Menendez on 10-09-2024 Creatinine (U) [Mass/Vol] Creatinine [Mass/volume] in Urine [facility] Comment on above: No reference range e stablished Creatinine (U) [Mass/Vol] 34.00 mg/dL [facility] Comment on above: No reference range e stablished Globulin Calc (S) [Mass/Vol] Ordered By: Tanner Menendez on 10-09-2024 Globulin (S) [Mass/Vol] Serum globulin measurement by calculation (mass/volume) [facility] Glucose [Mass/volume] in Ser um or PlasmaOrdered By: Tanner jonathan on 10-09-2024 Glucose [Mass/Vol] Glucose [Mass/volume ] in Serum or Plasma High 70-100 [facility] Comment on above: ADA recommended [...] the diagnosis of Diabetes Mellitus. Result Comment: [place] [facility] Glucose Reference Range is dependent on time and content of last meal. Glucose of more than 200 mg/dL in a nonstressed, ambulatory subject supports the diagnosis of Diabetes Mellitus. ADA recommended reference range Performed By: #### C MP, UA, LIPID, TSH3, CBC, URMACRERAT, LILLIANA, FE and TIBC #### [facility] [address] MicroAlb Creat Ratio,Uon Creatinine, Urine (Random) 34.00 mg/dL Normal [facility] Comment on above: Result Comment: No r eference range established Performed By: #### C MP, UA, LIPID, TSH3, CBC, URMACRERAT, LILLIANA, FE and TIBC #### [facility] [address] Microalbumin/Creatini ne Ratio Not performed Normal 0.0-30.0 [facility] Comment on above: Result Comment: PERF ORMED BY: [place] [address] PATHOLOGIST PIN MACHINE OPERATOR SYLVIA CRUZ M.D. Performed By: #### C MP, UA, LIPID, TSH3, CBC, URMACRERAT, LILLIANA, FE and TIBC #### [facility] [address] Microalbumin [Mass/volume] i n UrineOrdered By: Tanner Menendez on 10-09-2024 Albumin DL <= 20 mg/L (U) [Mass/Vol] Microalbumin [Mass/volume] in Urine 0.0-1.8 [facility] Albumin DL <= 20 mg/L (U) [Mass/Vol] mg/dL Normal 0.0-1.8 [facility] Comment on above: Performed By: #### C MP, UA, LIPID, TSH3, CBC, URMACRERAT, LILLIANA, FE and TIBC #### [facility] [address] Natriuretic peptide B [Mass/ Vol]Ordered By: Summer Workman on 10-09-2024 Natriuretic peptide B (Bld) [Mass/Vol] BNP ser/plas 5-100 [facility] No Panel InformationOrdered By: Summer Workman on 10-09-2024 Estimated GFR (CKD-EPI) > 60.0 mL/Min [facility] Creatinine Clearance (Chem N/A [facility] Potassium [Moles/volume] in Serum or PlasmaOrdered By: Summer Workman on 10-09-2024 Potassium [Moles/Vol] Potassium [Moles/v olume] in Serum or Plasma 3.5-5.1 [facility] Potassium [Moles/Vol] 4.0 mmol/L Normal 3.5-5.1 [facility] Comment on above: Performed By: #### C MP, UA, LIPID, TSH3, CBC, URMACRERAT, LILLIANA, FE and TIBC #### [facility] [address] Protein [Mass/volume] in Ser um or PlasmaOrdered By: Summer Workman on 10-09-2024 Protein [Mass/Vol] Protein [Mass/volume ] in Serum or Plasma Low 6.4-8.9 [facility] Protein [Mass/Vol] 6.0 g/dL Low 6.4-8.9 [facility] Comment on above: Performed By: #### C MP, UA, LIPID, TSH3, CBC, URMACRERAT, ILLLIANA, FE and TIBC #### [facility] [address] Serum globulin measurement b y calculation (mass/volume)Ordered By: Summer Workman on 10-09-2024 Globulin (S) [Mass/Vol] 2.3 g/dL Normal [facility] Comment on above: Performed By: #### C MP, UA, LIPID, TSH3, CBC, URMACRERAT, LILLIANA, FE and TIBC #### [facility] [address] Serum or plasma albumin/glob ulin mass ratioOrdered By: Summer Workman on 10-09-2024 Albumin/Globulin [Mass ratio] Serum or plasma albumin/globulin mass ratio [facility] Albumin/Globulin [Mass ratio] 1.6 {ratio} Normal [facility] Comment on above: Performed By: #### C MP, UA, LIPID, TSH3, CBC, URMACRERAT, LILLIANA, FE and TIBC #### [facility] [address] Serum or plasma anion gap de terminationOrdered By: Summer Workman on 10-09-2024 Anion gap [Moles/Vol] Serum or plasma an ion gap determination 6.0-15.0 [facility] Anion gap [Moles/Vol] 8.9 mmol/L Normal 6.0-15.0 [facility] Comment on above: Performed By: #### C MP, UA, LIPID, TSH3, CBC, URMACRERAT, LILLIANA, FE and TIBC #### [facility] [address] [place] [address] Sodium [Moles/volume] in Ser um or PlasmaOrdered By: Summer Workman on 10-09-2024 Sodium [Moles/Vol] Sodium [Moles/volume ] in Serum or Plasma 136-145 [facility] Sodium [Moles/Vol] 139 mmol/L Normal 136-145 [facility] Comment on above: Performed By: #### C MP, UA, LIPID, TSH3, CBC, URMACRERAT, LILLIANA, FE and TIBC #### [facility] [address] Urea nitrogen [Mass/volume] in Serum or PlasmaOrdered By: Summer Workman on 10-09-2024 Urea nitrogen [Mass/Vol] Urea nitrogen [Mass/volume] in Serum or Plasma 12-21 [facility] Urea nitrogen [Mass/Vol] 9 mg/dL Normal 25 [facility] Comment on above: Performed By: #### C MP, UA, LIPID, TSH3, CBC, URMACRERAT, LILLIANA, FE and TIBC #### [facility] [address] [place] [id number] [facility] Urine microalbumin/creatinin e mass ratioOrdered By: Tanner Menendez on 10-09-2024 Albumin/Creatinine DL <= 20 mg/L (U) [Mass ratio] Urine microalbumin/creatinine mass ratio [facility] Comment on above: Test not performed Albumin/Creatinine DL <= 20 mg/L (U) [Mass ratio] TNP [facility] Comment on above: Test not performed Cortisolon 08-29-2024 Cortisol 6.2 ug/dL Normal [facility] Comment on above: Result Comment: Refe rence range: AM 6 - 24 ug/dl PM <10 ug/dl [facility] arcgis developer and method: [employer] UNICEL DXI, POLYCLONAL ANTIBODY CORTISOL ASSAY. PERFORMED BY: [place] [address] PATHOLOGIST PIN MACHINE OPERATOR SYLVIA CRUZ M.D. Performed By: #### C MP, UA, LIPID, TSH3, CBC, URMACRERAT, LILLIANA, FE and TIBC #### [facility] [address] [place] [id number] [facility] Cortisol [Mass/volume] in Se rum or PlasmaOrdered By: Kenyetta Dove on 08-29-2024 Cortisol [Mass/Vol] Random cortisol measurement [facility] Comment on above: [facility] arcgis developer and method:[employer] UNICEL DXI, POLYCLONAL ANTIBODY CORTISOL ASSAY.Reference range: AM 6 - 24 ug/dl PM <10 ug/dl Cortisol [Mass/Vol] 6.2 ug/dL [facility] Comment on above: [facility] arcgis developer and method:[employer] UNICEL DXI, POLYCLONAL ANTIBODY CORTISOL ASSAY.Reference range: AM 6 - 24 ug/dl PM <10 ug/dl Alanine aminotransferase [En zymatic activity/volume] in Serum or PlasmaOrdered By: Melissa Coon on 08-03-2024 ALT [Catalytic activity/Vol] Alanine aminotransferase [Enzymatic activity/volume] in Serum or Plasma [facility] Albumin [Mass/volume] in Ser um or Plasma by Bromocresol green (BCG) dye binding methoOrdered By: Melissa Coon on 08-03-2024 Albumin BCG dye [Mass/Vol] Albumin [Mass/volume] in Serum or Plasma by Bromocresol green (BCG) dye binding metho 3.5-5.7 [facility] Alkaline phosphatase [Enzyma tic activity/volume] in Serum or PlasmaOrdered By: Melissa Coon on 08-03-2024 ALP [Catalytic activity/Vol] Alkaline phosphatase [Enzymatic activity/volume] in Serum or Plasma 34-104 [facility] Aspartate aminotransferase [ Enzymatic activity/volume] in Serum or PlasmaOrdered By: Melissa Coon on 08-03-2024 AST [Catalytic activity/Vol] Aspartate aminotransferase [Enzymatic activity/volume] in Serum or Plasma Low 13-39 [facility] Basophils Auto (Bld) [#/Vol] Ordered By: Melissa Coon on 08-03-2024 Basophils (Bld) [#/Vol] Automated basophil count 0.0-0.2 [facility] Basophils/100 WBC Auto (Bld) Ordered By: Melissa Coon on 08-03-2024 Basophils/100 WBC (Bld) Automated basophil % . [facility] Bilirubin.total [Mass/volume ] in Serum or PlasmaOrdered By: Melissa Coon on 08-03-2024 Bilirubin [Mass/Vol] Bilirubin.total [Mass/volume] in Serum or Plasma 0.3-1.0 [facility] Calcium [Mass/volume] in Ser um or PlasmaOrdered By: Melissa Coon on 08-03-2024 Calcium [Mass/Vol] Calcium [Mass/volume ] in Serum or Plasma 8.6-10.3 [facility] Carbon dioxide, total [Moles /volume] in Serum or PlasmaOrdered By: Melissa Coon on 08-03-2024 CO2 [Moles/Vol] Carbon dioxide, tota l [Moles/volume] in Serum or Plasma 21.0-31.0 [facility] Chloride [Moles/volume] in S zakia or PlasmaOrdered By: Melissa Coon on 08-03-2024 Chloride [Moles/Vol] Chloride [Moles/vol ume] in Serum or Plasma 98-107 [facility] Complete Blood Count Auto Di ffon 08-03-2024 Basophils (Bld) [#/Vol] 0.1 10*3/uL Normal 0.0-0.2 [facility] Comment on above: Result Comment: PERF ORMED BY: [place] [address] PATHOLOGIST PIN MACHINE OPERATOR SYLVIA CRUZ M.D. Performed By: #### C MP, UA, LIPID, TSH3, CBC, URMACRERAT, LILLIANA, FE and TIBC #### [address] Basophils/100 WBC (Bld) 0.7 % Normal . [facility] Comment on above: Performed By: #### C MP, UA, LIPID, TSH3, CBC, URMACRERAT, LILLIANA, FE and TIBC #### [address] Eosinophils (Bld) [#/Vol] 0.1 10*3/uL Normal 0.0-0.45 [facility] Comment on above: Performed By: #### C MP, UA, LIPID, TSH3, CBC, URMACRERAT, LILLIANA, FE and TIBC #### [address] Eosinophils/100 WBC (Bld) 1.1 % Normal . [facility] Comment on above: Performed By: #### C MP, UA, LIPID, TSH3, CBC, URMACRERAT, LILLIANA, FE and TIBC #### [address] Erythrocyte distribution width (RBC) [Ratio] 14.3 % Normal 11.9-15.3 [facility] Comment on above: Performed By: #### C MP, UA, LIPID, TSH3, CBC, URMACRERAT, LILLIANA, FE and TIBC #### [address] Hematocrit (Bld) [Volume fraction] 41.4 % Normal 34.0-46.4 [facility] Comment on above: Performed By: #### C MP, UA, LIPID, TSH3, CBC, URMACRERAT, LILLIANA, FE and TIBC #### [address] Hemoglobin (Bld) [Mass/Vol] 13.9 g/dL Normal 11.8-15.4 [facility] Comment on above: Performed By: #### C MP, UA, LIPID, TSH3, CBC, URMACRERAT, LILLIANA, FE and TIBC #### [address] Lymphocytes (Bld) [#/Vol] 3.4 10*3/uL Normal 1.00-4.8 [facility] Comment on above: Performed By: #### C MP, UA, LIPID, TSH3, CBC, URMACRERAT, LILLIANA, FE and TIBC #### [address] Lymphocytes/100 WBC (Bld) 28.3 % Normal . [facility] Comment on above: Performed By: #### C MP, UA, LIPID, TSH3, CBC, URMACRERAT, LILLIANA, FE and TIBC #### [address] MCH (RBC) [Entitic mass] 30.6 pg Normal 24.7-34.3 [facility] Comment on above: Performed By: #### C MP, UA, LIPID, TSH3, CBC, URMACRERAT, LILLIANA, FE and TIBC #### [address] MCV (RBC) [Entitic vol] 90.8 fL Normal 80-100 [facility] Comment on above: Performed By: #### C MP, UA, LIPID, TSH3, CBC, URMACRERAT, LILLIANA, FE and TIBC #### [address] Mean Corpuscular HGB Conc 33.7 g/dL Normal 32.0-35.0 [facility] Comment on above: Performed By: #### C MP, UA, LIPID, TSH3, CBC, URMACRERAT, LILLIANA, FE and TIBC #### [place] [address] [place] Monocytes (Bld) [#/Vol] 0.6 10*3/uL Normal 0.0-0.8 [facility] Comment on above: Performed By: #### C MP, UA, LIPID, TSH3, CBC, URMACRERAT, LILLIANA, FE and TIBC #### [address] Monocytes/100 WBC (Bld) 4.6 % Normal . [facility] Comment on above: Performed By: #### C MP, UA, LIPID, TSH3, CBC, URMACRERAT, LILLIANA, FE and TIBC #### [address] Neutrophils (Bld) [#/Vol] 7.9 10*3/uL High 1.8-7.7 [facility] Comment on above: Performed By: #### C MP, UA, LIPID, TSH3, CBC, URMACRERAT, LILLIANA, FE and TIBC #### [address] Neutrophils/100 WBC (Bld) 65.3 % Normal . [facility] Comment on above: Performed By: #### C MP, UA, LIPID, TSH3, CBC, URMACRERAT, LILLIANA, FE and TIBC #### [address] NRBC% 0.0 /100{WBC} Normal 0-0.5 [facility] Comment on above: Performed By: #### C MP, UA, LIPID, TSH3, CBC, URMACRERAT, LILLIANA, FE and TIBC #### [address] Platelet mean volume (Bld) [Entitic vol] 7.5 fL Normal 6.3-10.7 [facility] Comment on above: Performed By: #### C MP, UA, LIPID, TSH3, CBC, URMACRERAT, LILLIANA, FE and TIBC #### [address] Platelets (Bld) [#/Vol] 395 10*3/uL Normal 150-450 [facility] Comment on above: Performed By: #### C MP, UA, LIPID, TSH3, CBC, URMACRERAT, LILLIANA, FE and TIBC #### [facility] [address] RBC (Bld) [#/Vol] 4.56 10*6/uL Normal 3.60-5.00 [facility] Comment on above: Performed By: #### C MP, UA, LIPID, TSH3, CBC, URMACRERAT, LILLIANA, FE and TIBC #### [facility] [address] WBC (Bld) [#/Vol] 12.1 10*3/uL High 3.8-11.6 [facility] Comment on above: Performed By: #### C MP, UA, LIPID, TSH3, CBC, URMACRERAT, LILLIANA, FE and TIBC #### [address] Comprehensive Metabolic Pane soniya 08-03-2024 Albumin [Mass/Vol] 3.7 g/dL Normal 3.5-5.7 [facility] Comment on above: Performed By: #### C MP, UA, LIPID, TSH3, CBC, URMACRERAT, LILLIANA, FE and TIBC #### [address] Albumin/Globulin [Mass ratio] 1.4 {ratio} Normal [facility] Comment on above: Performed By: #### C MP, UA, LIPID, TSH3, CBC, URMACRERAT, LILLIANA, FE and TIBC #### [address] ALP [Catalytic activity/Vol] 47 U/L Normal 34-104 [facility] Comment on above: Performed By: #### C MP, UA, LIPID, TSH3, CBC, URMACRERAT, LILLIANA, FE and TIBC #### [address] ALT [Catalytic activity/Vol] 17 U/L Normal 7-52 [facility] Comment on above: Performed By: #### C MP, UA, LIPID, TSH3, CBC, URMACRERAT, LILLIANA, FE and TIBC #### [address] Anion gap [Moles/Vol] 10.1 mmol/L Normal 6.0-15.0 [facility] Comment on above: Performed By: #### C MP, UA, LIPID, TSH3, CBC, URMACRERAT, LILLIANA, FE and TIBC #### [address] AST [Catalytic activity/Vol] 12 U/L Low 13-39 [facility] Comment on above: Performed By: #### C MP, UA, LIPID, TSH3, CBC, URMACRERAT, LILLIANA, FE and TIBC #### [address] Bilirubin [Mass/Vol] 0.5 mg/dL Normal 0.3-1.0 [facility] Comment on above: Performed By: #### C MP, UA, LIPID, TSH3, CBC, URMACRERAT, LILLIANA, FE and TIBC #### [address] Calcium [Mass/Vol] 8.7 mg/dL Normal 8.6-10.3 [facility] Comment on above: Performed By: #### C MP, UA, LIPID, TSH3, CBC, URMACRERAT, LILLIANA, FE and TIBC #### [address] Chloride [Moles/Vol] 105 mmol/L Normal 98-107 [facility] Comment on above: Performed By: #### C MP, UA, LIPID, TSH3, CBC, URMACRERAT, LILLIANA, FE and TIBC #### [address] CO2 [Moles/Vol] 29.2 mmol/L Normal 21.0-31.0 [facility] Comment on above: Performed By: #### C MP, UA, LIPID, TSH3, CBC, URMACRERAT, LILLIANA, FE and TIBC #### [facility] [address] Creatinine [Mass/Vol] 0.58 mg/dL Low 0.60-1.20 [facility] Comment on above: Performed By: #### C MP, UA, LIPID, TSH3, CBC, URMACRERAT, LILLIANA, FE and TIBC #### [address] GFR/1.73 sq M.predicted MDRD (S/P/Bld) [Vol rate/Area] mL/min/{1.73_m2} Normal [facility] Comment on above: Performed By: #### C MP, UA, LIPID, TSH3, CBC, URMACRERAT, LILLIANA, FE and TIBC #### [address] Globulin (S) [Mass/Vol] 2.6 g/dL Normal [facility] Comment on above: Performed By: #### C MP, UA, LIPID, TSH3, CBC, URMACRERAT, LILLIANA, FE and TIBC #### [address] Glucose [Mass/Vol] 98 mg/dL Normal 70-100 [facility] Comment on above: Result Comment: [facility] Glucose Reference Range is dependent on time and content of last meal. Glucose of more than 200 mg/dL in a nonstressed, ambulatory subject supports the diagnosis of Diabetes Mellitus. ADA recommended reference range Performed By: #### C MP, UA, LIPID, TSH3, CBC, URMACRERAT, LILLIANA, FE and TIBC #### [address] Potassium [Moles/Vol] 4.3 mmol/L Normal 3.5-5.1 [facility] Comment on above: Performed By: #### C MP, UA, LIPID, TSH3, CBC, URMACRERAT, LILLIANA, FE and TIBC #### [address] Protein [Mass/Vol] 6.3 g/dL Low 6.4-8.9 [facility] Comment on above: Performed By: #### C MP, UA, LIPID, TSH3, CBC, URMACRERAT, LILLIANA, FE and TIBC #### [address] Sodium [Moles/Vol] 140 mmol/L Normal 136-145 [facility] Comment on above: Performed By: #### C MP, UA, LIPID, TSH3, CBC, URMACRERAT, LILLIANA, FE and TIBC #### [address] Urea nitrogen [Mass/Vol] 14 mg/dL Normal 7-25 [facility] Comment on above: Performed By: #### C MP, UA, LIPID, TSH3, CBC, URMACRERAT, LILLIANA, FE and TIBC #### [address] Cortisolon 08-03-2024 Cortisol 3.3 ug/dL Normal [facility] Comment on above: Result Comment: Refe rence range: AM 6 - 24 ug/dl PM <10 ug/dl [facility] arcgis developer and method: Easy VoyageEL DXI, POLYCLONAL ANTIBODY CORTISOL ASSAY. Performed By: #### C MP, UA, LIPID, TSH3, CBC, URMACRERAT, LILLIANA, FE and TIBC #### [address] Cortisol [Mass/volume] in Se rum or PlasmaOrdered By: Melissa Coon on 08-03-2024 Cortisol [Mass/Vol] Random cortisol measurement [facility] Comment on above: [facility] arcgis developer and method:Easy VoyageEL DXI, POLYCLONAL ANTIBODY CORTISOL ASSAY.Reference range: AM 6 - 24 ug/dl PM <10 ug/dl Creatinine [Mass/volume] in Serum or PlasmaOrdered By: Melissa Coon on 08-03-2024 Creatinine [Mass/Vol] Creatinine [Mass/v olume] in Serum or Plasma Low 0.60-1.20 [facility] Eosinophils Auto (Bld) [#/Vo l]Ordered By: Melissa Coon on 08-03-2024 Eosinophils (Bld) [#/Vol] Automated eosinophil count 0.0-0.45 [facility] Eosinophils/100 WBC Auto (Bl d)Ordered By: Melissa Coon on 08-03-2024 Eosinophils/100 WBC (Bld) Automated eosinophil % . [facility] Erythrocyte distribution wid th Auto (RBC) [Ratio]Ordered By: Melissa Coon on 08-03-2024 Erythrocyte distribution width (RBC) [Ratio] Erythrocyte distribution width [Ratio] by Automated count 11.9-15.3 [facility] Estradiolon 08-03-2024 Estradiol <5.0 Normal . [facility] Comment on above: Result Comment: Adul t Female Range Follicular phase 12.5 - 166.0 Ovulation phase 85.8 - 498.0 Luteal phase 43.8 - 211.0 Postmenopausal <6.0 - 54.7 1st trimester 215.0 - >4300.0 [place] ECLIA methodology Performed at: [facility] [place] [id number] Air Hammer Stripper: Ramirez Ca PhD, Phone: [phone] PERFORMED BY: [place] [address] PATHOLOGIST PIN MACHINE OPERATOR SYLVIA CRUZ M.D. Performed By: #### C MP, UA, LIPID, TSH3, CBC, URMACRERAT, LILLIANA, FE and TIBC #### [facility] [address] [place] [address] Ferritinon 08-03-2024 Ferritin [Mass/Vol] 100.7 ng/mL Normal 11.0-306.8 [facility] Comment on above: Performed By: #### C MP, UA, LIPID, TSH3, CBC, URMACRERAT, LILLIANA, FE and TIBC #### [address] Ferritin [Mass/volume] in Se rum or PlasmaOrdered By: Melissa Coon on 08-03-2024 Ferritin [Mass/Vol] Ferritin [Mass/volum e] in Serum or Plasma 11.0-306.8 [facility] Follicle Stimulating Hormone on 08-03-2024 Follicle Stimulating Hormone 18.3 m[iU]/mL Normal [facility] Comment on above: Result Comment: FEMA LE NORMALS (PREMENOPAUSE) MID-FOLLICULAR PHASE: 3.9-8.8 mIU/mL MID-CYCLE PEAK: 4.5-22.5 mIU/mL MID-LUTEAL PHASE: 1.8-5.1 mIU/mL FEMALE NORMALS (POSTMENOPAUSE): 16.7-113.6 mIU/mL MALE NORMALS: 1.3-19.3 mIU/mL Performed By: #### C MP, UA, LIPID, TSH3, CBC, URMACRERAT, LILLIANA, FE and TIBC #### [facility] [address] Follitropin [Units/volume] i n Serum or PlasmaOrdered By: Melissa Coon on 08-03-2024 Follitropin Qn Follitropin [Units/v olume] in Serum or Plasma [facility] Comment on above: FEMALE NORMALS (GERHARD ENOPAUSE) MID-FOLLICULAR PHASE: 3.9-8.8 mIU/mL MID-CYCLE PEAK: 4.5-22.5 mIU/mL MID-LUTEAL PHASE: 1.8-5.1 mIU/mLFEMALE NORMALS (POSTMENOPAUSE): 16.7-113.6 mIU/mLMALE NORMALS: 1.3-19.3 mIU/mL Globulin Calc (S) [Mass/Vol] Ordered By: Melissa Coon on 08-03-2024 Globulin (S) [Mass/Vol] Serum globulin measurement by calculation (mass/volume) [facility] Glucose [Mass/volume] in Ser um or PlasmaOrdered By: Melissa Coon on 08-03-2024 Glucose [Mass/Vol] Glucose [Mass/volume ] in Serum or Plasma 70-100 [facility] Comment on above: ADA recommended refe rence rangeRandom Glucose Reference Range is dependent on time and content of last meal. Glucose of more than 200 mg/dL in a nonstressed, ambulatory subject supports the diagnosis of Diabetes Mellitus. Hematocrit Auto (Bld) [Volum e fraction]Ordered By: Melissa Coon on 08-03-2024 Hematocrit (Bld) [Volume fraction] Hematocrit [Volume Fraction] of Blood by Automated count 34.0-46.4 [facility] Hemoglobin [Mass/volume] in BloodOrdered By: Melissa Coon on 08-03-2024 Hemoglobin (Bld) [Mass/Vol] Hemoglobin [Mass/volume] in Blood 11.8-15.4 [facility] Iron [Mass/volume] in Serum or PlasmaOrdered By: Melissa Coon on 08-03-2024 Iron [Mass/Vol] Iron [Mass/volume] i n Serum or Plasma 50-212 [facility] Iron and TIBC Profileon % Iron Saturation 17.3 % Low 20-50 [facility] Comment on above: Performed By: #### C MP, UA, LIPID, TSH3, CBC, URMACRERAT, LILLIANA, FE and TIBC #### [facility] [address] Iron [Mass/Vol] 64 ug/dL Normal 50-212 [facility] Comment on above: Performed By: #### C MP, UA, LIPID, TSH3, CBC, URMACRERAT, LILLIANA, FE and TIBC #### [facility] [address] Total Iron Binding Capacity 371 ug/dL Normal 255-450 [facility] Comment on above: Performed By: #### C MP, UA, LIPID, TSH3, CBC, URMACRERAT, LILLIANA, FE and TIBC #### [facility] [address] Transferrin [Mass/Vol] 265 mg/dL Normal 203-362 [facility] Comment on above: Performed By: #### C MP, UA, LIPID, TSH3, CBC, URMACRERAT, LILLIANA, FE and TIBC #### [facility] [address] Leukocytes [#/volume] correc emily for nucleated erythrocytes in Blood by Automated counOrdered By: Melissa Coon on 08-03-2024 WBC corrected for nucl RBC Auto (Bld) [#/Vol] Leukocytes [#/volume] corrected for nucleated erythrocytes in Blood by Automated coun High 3.8-11.6 [facility] Luteinizing Hormoneon 2024 Luteinizing Hormone 29.5 m[iU]/mL Normal . [facility] Comment on above: Result Comment: Adul t Female Range Follicular phase 2.4 - 12.6 Ovulation phase 14.0 - 95.6 Luteal phase 1.0 - 11.4 Postmenopausal 7.7 - 58.5 Performed By: #### C MP, UA, LIPID, TSH3, CBC, URMACRERAT, LILLIANA, FE and TIBC #### [facility] [address] Lymphocytes Auto (Bld) [#/Vo l]Ordered By: Melissa Coon on 08-03-2024 Lymphocytes (Bld) [#/Vol] Lymphocytes [#/volume] in Blood by Automated count 1.00-4.8 [facility] Lymphocytes/100 WBC Auto (Bl d)Ordered By: Melissa Coon on 08-03-2024 Lymphocytes/100 WBC (Bld) Lymphocytes/100 leukocytes in Blood by Automated count . [facility] MCH Auto (RBC) [Entitic mass ]Ordered By: Melissa Coon on 08-03-2024 MCH (RBC) [Entitic mass] MCH [Entitic mass] by Automated count 24.7-34.3 [facility] MCHC Auto (RBC) [Mass/Vol]Or dered By: Melissa Coon on 08-03-2024 MCHC (RBC) [Mass/Vol] MCHC [Mass/volume] by Automated count 32.0-35.0 [facility] MCV Auto (RBC) [Entitic vol] Ordered By: Melissa Coon on 08-03-2024 MCV (RBC) [Entitic vol] MCV [Entitic volume] by Automated count 80-100 [facility] Magnesiumon 08-03-2024 Magnesium [Mass/Vol] 1.9 mg/dL Normal 1.9-2.7 [facility] Comment on above: Performed By: #### C MP, UA, LIPID, TSH3, CBC, URMACRERAT, LILLIANA, FE and TIBC #### [facility] [address] [place] [id number] [place] Magnesium [Mass/volume] in S zakia or PlasmaOrdered By: Melissa Coon on 08-03-2024 Magnesium [Mass/Vol] Magnesium [Mass/vol ume] in Serum or Plasma 1.9-2.7 [facility] Monocytes Auto (Bld) [#/Vol] Ordered By: Melissa Coon on 08-03-2024 Monocytes (Bld) [#/Vol] Automated blood monocyte count 0.0-0.8 [facility] Monocytes/100 WBC Auto (Bld) Ordered By: Melissa Coon on 08-03-2024 Monocytes/100 WBC (Bld) Automated monocyte % . [facility] Neutrophils Auto (Bld) [#/Vo l]Ordered By: Melissa Coon on 08-03-2024 Neutrophils (Bld) [#/Vol] Neutrophils [#/volume] in Blood by Automated count High 1.8-7.7 [facility] Neutrophils/100 WBC Auto (Bl d)Ordered By: Melissa Coon on 08-03-2024 Neutrophils/100 WBC (Bld) Automated neutrophil % . [facility] No Panel InformationOrdered By: Melissa Coon on 08-03-2024 Estimated GFR (CKD-EPI) > 60.0 mL/Min [facility] Creatinine Clearance (Chem N/A [facility] Nucleated erythrocytes [Pres ence] in Blood by Automated countOrdered By: Melissa Coon on 08-03-2024 Nucleated RBC Auto Ql (Bld) Nucleated erythrocytes [Presence] in Blood by Automated count 0-0.5 [facility] Parathyrin.intact [Mass/volu me] in Serum or PlasmaOrdered By: Melissa Coon on 08-03-2024 Parathyrin.intact [Mass/Vol] Parathyrin.intact [Mass/volume] in Serum or Plasma [facility] Parathyroid Hormone Intacton 08-03-2024 Parathyroid Hormone Intact 48.1 pg/mL Normal [facility] Comment on above: Result Comment: PERF ORMED BY: [facility] [address] [address] PATHOLOGIST PIN MACHINE OPERATOR SYLVIA CRUZ M.D. Performed By: #### C MP, UA, LIPID, TSH3, CBC, URMACRERAT, LILLIANA, FE and TIBC #### [facility] [address] [place] [id number] [facility] Platelet mean volume Auto (B ld) [Entitic vol]Ordered By: Melissa Coon on 08-03-2024 Platelet mean volume (Bld) [Entitic vol] Platelet mean volume [Entitic volume] in Blood by Automated count 6.3-10.7 [facility] Platelets Auto (Bld) [#/Vol] Ordered By: Melissa Coon on 08-03-2024 Platelets (Bld) [#/Vol] Platelets [#/volume] in Blood by Automated count 150-450 [facility] Potassium [Moles/volume] in Serum or PlasmaOrdered By: Melissa Coon on 08-03-2024 Potassium [Moles/Vol] Potassium [Moles/v olume] in Serum or Plasma 3.5-5.1 [facility] Protein [Mass/volume] in Ser um or PlasmaOrdered By: Melissa Coon on 08-03-2024 Protein [Mass/Vol] Protein [Mass/volume ] in Serum or Plasma Low 6.4-8.9 [facility] RBC Auto (Bld) [#/Vol]Ordere d By: Melissa Coon on 08-03-2024 RBC (Bld) [#/Vol] Erythrocytes [#/volu me] in Blood by Automated count 3.60-5.00 [facility] Serum or plasma albumin/glob ulin mass ratioOrdered By: Melissa Coon on 08-03-2024 Albumin/Globulin [Mass ratio] Serum or plasma albumin/globulin mass ratio [facility] Serum or plasma anion gap de terminationOrdered By: Melissa Coon on 08-03-2024 Anion gap [Moles/Vol] Serum or plasma an ion gap determination 6.0-15.0 [facility] Serum or plasma estradiol (E 2) measurement (mass/volume)Ordered By: Melissa Coon on 08-03-2024 E2 [Mass/Vol] Serum or plasma estr adiol (E2) measurement (mass/volume) . [facility] Comment on above: Adult Female Range F ollicular phase 12.5 - 166.0 Ovulation phase 85.8 - 498.0 Luteal phase 43.8 - 211.0 Postmenopausal <6.0 - 54.7 1st trimester 215.0 - >4300.0[place] ECLIA methodologyPerformed at: CB - [facility] [address] [id number] Director: Ramirez Ca PhD, Phone: [phone] Serum or plasma iron binding capacity measurement (mass/volume)Ordered By: Melissa Coon on 08-03-2024 Iron binding capacity [Mass/Vol] Iron binding capacity [Mass/volume] in Serum or Plasma 255-450 [facility] Serum or plasma iron saturat ion measurement (mass fraction)Ordered By: Melissa Coon on 08-03-2024 Iron saturation [Mass fraction] Iron saturation [Mass Fraction] in Serum or Plasma Low 20-50 [facility] Serum or plasma lutropin lisa surement (units/volume)Ordered By: Melissa Coon on 08-03-2024 Lutropin Qn Serum or plasma lutr opin measurement (units/volume) . [facility] Comment on above: Adult Female Range F ollicular phase 2.4 - 12.6 Ovulation phase 14.0 - 95.6 Luteal phase 1.0 - 11.4 Postmenopausal 7.7 - 58.5 Sodium [Moles/volume] in Ser um or PlasmaOrdered By: Melissa Coon on 08-03-2024 Sodium [Moles/Vol] Sodium [Moles/volume ] in Serum or Plasma 136-145 [facility] Thyroid Stimulating Hormoneo n 08-03-2024 TSH Qn 6.81 m[IU]/L High 0.45-5.33 [facility] Comment on above: Performed By: #### C MP, UA, LIPID, TSH3, CBC, URMACRERAT, LILLIANA, FE and TIBC #### [facility] [address] Thyrotropin [Units/volume] i n Serum or PlasmaOrdered By: Melissa Coon on 08-03-2024 TSH Qn Thyrotropin [Units/v olume] in Serum or Plasma High 0.45-5.33 [facility] Transferrin [Mass/volume] in Serum or PlasmaOrdered By: Melissa Coon on 08-03-2024 Transferrin [Mass/Vol] Transferrin [Mass/volume] in Serum or Plasma 203-362 [facility] Urea nitrogen [Mass/volume] in Serum or PlasmaOrdered By: Melissa Coon on 08-03-2024 Urea nitrogen [Mass/Vol] Urea nitrogen [Mass/volume] in Serum or Plasma 7-25 [facility] Vitamin D 25 Hydroxy Totalon 08-03-2024 Vitamin D 25 Hydroxy Total 51.5 ng/mL Normal 30-100 [facility] Comment on above: Result Comment: QASIM MIN D STATUS 25(OH)VITAMIN D RANGE (ng/mL) Deficient <20 Insufficient 20 to <30 Sufficient 30 to 100 Reference: Adonay Espinosa, Shantelle HOLLOWAY et al. Evaluation,treatment, and prevention of vitamin D deficiency; an Endocrine Society clinical practice guideline. JCEM. 2010; 96(7):1911-. PERFORMED BY: [place] [address] PATHOLOGIST PIN MACHINE OPERATOR SYLVIA CRUZ M.D. Performed By: #### C MP, UA, LIPID, TSH3, CBC, URMACRERAT, LILLIANA, FE and TIBC #### [address] Vitamin D+Metabolites [Mass/ volume] in Serum or PlasmaOrdered By: Melissa Coon on 08-03-2024 Vitamin D+Metabolites [Mass/Vol] Vitamin D+Metabolites [Mass/volume] in Serum or Plasma 30-100 [facility] Comment on above: VITAMIN D [...] in Blood by Automated count High 3.8-11.6 [facility] XR pre/post mri xrayon 06-19 XR pre/post mri xray [facility] [place] [place] [address] MRI Report Signed Patient: Lupe Pickard MR#: [id number] : 1975 Acct:[id number] Age/Sex: 49 / F ADM Date: 06/18/24 Loc: [facility] Room: Type: [facility] CLI Attending Dr: Willian Jensen MD Copies to: Willian Jensen MD Ordering Provider: Willian Jensen MD Date of Service: 06/18/24 MR/MR lumbar spine wo con: M48.062 ([id number]) XR/XR pre/post mri xray: M48.062 MRI Lumbar [...] Rao Gresham M.D.06/19/2024 10:29 AM Dictation Location: [id number] Transcribed By: BOB 06/19/24 1029 Dictated By: Rao Gresham DO 06/19/24 1022 Signed By: 06/19/24 1029 Normal [facility] Heart and Vascular Office/Cl inic Noteon 05-22-2024 Heart and Vascular Office/Clinic Note Heart and Vascular Office/Clinic Note Chief Complaint 6 mo f/u palps History of Present Illness Patient is a very pleasant 49-year-old obese nondiabetic female with a history of fibromyalgia, GERD, former smoker, quit more than 30 years ago, who was initially referred for palpitations. Patient was originally referred to [facility] with Dr. Benjamin; at her initial appointment, [...] therapeutic forman (more content not included)... Normal Pak [facility] Comment on above: Result Comment: Elec tronically Signed By: Trudy PELAYO, Eldon Nguyen\.br\Date and Time Signed: 05/22/24 10:40 EST Influenza virus B Ag [Presen ce] in Upper respiratory specimen by Rapid immunoassayon 05-14-2024 FLUBV Ag IA.rapid Ql (Nph) Influenza virus B Ag [Presence] in Upper respiratory specimen by Rapid immunoassay [facility] No Panel Informationon 05-14 Influenza Type A (Rapid) Negative [facility] POC SARS CoV-2 Antigen Negative [facility] No Panel InformationOrdered By: Selina Lomas on 05-14-2024 Quick Strep (POC) [facility] Quick Strep (POC) [facility] Thyrotropin [Units/volume] i n Serum or PlasmaOrdered By: Kenyetta Dove on 02-21-2024 TSH Qn 4.01 m[IU]/L Normal 0.45-5.33 [facility] Comment on above: Result Comment: PERF ORMED BY: [place] [address] PATHOLOGIST PIN MACHINE OPERATOR WENDY CLARK M.D. Performed By: #### C MP, UA, LIPID, TSH3, CBC, URMACRERAT, LILLIANA, FE and TIBC #### [facility] [address] [place] [address] Thyroxine (T4) free [Mass/vo lume] in Serum or PlasmaOrdered By: Kenyetta Dove on 02-21-2024 Free T4 [Mass/Vol] 1.10 ng/dL Normal 0.61-1.12 [facility] Comment on above: Performed By: #### C MP, UA, LIPID, TSH3, CBC, URMACRERAT, LILLIANA, FE and TIBC #### [facility] [address] [place] [address] [place] Triiodothyronine (T3) Freeon 02-21-2024 Triiodothyronine (T3) Free 3.20 pg/mL Normal 2.50-3.90 [facility] Comment on above: Result Comment: PERF ORMED BY: [place] [address] PATHOLOGIST PIN MACHINE OPERATOR WENDY CLARK M.D. Performed By: #### C MP, UA, LIPID, TSH3, CBC, URMACRERAT, LILLIANA, FE and TIBC #### [address] Triiodothyronine (T3) Free [ Mass/volume] in Serum or PlasmaOrdered By: Kenyetta Dove on 02-21-2024 Free T3 [Mass/Vol] 3.20 pg/mL 2.50-3.90 [facility] Alanine aminotransferase [En zymatic activity/volume] in Serum or PlasmaOrdered By: Dalia Dennis on 02-01-2024 ALT [Catalytic activity/Vol] 12 U/L Normal 7-52 [facility] Comment on above: Performed By: #### C MP, UA, LIPID, TSH3, CBC, URMACRERAT, ILLLIANA, FE and TIBC #### [facility] [address] [place] [address] [place] Albumin [Mass/volume] in Ser um or Plasma by Bromocresol green (BCG) dye binding methoOrdered By: Dalia Dennis on 02-01-2024 Albumin BCG dye [Mass/Vol] 3.8 g/dL 3.5-5.7 [facility] Alkaline phosphatase [Enzyma tic activity/volume] in Serum or PlasmaOrdered By: Dalia Dennis on 02-01-2024 ALP [Catalytic activity/Vol] 52 U/L Normal 34-104 [facility] Comment on above: Performed By: #### C MP, UA, LIPID, TSH3, CBC, URMACRERAT, LILLIANA, FE and TIBC #### [address] Aspartate aminotransferase [ Enzymatic activity/volume] in Serum or PlasmaOrdered By: Dalia Dennis on 02-01-2024 AST [Catalytic activity/Vol] 11 U/L Low 13-39 [facility] Comment on above: Performed By: #### C MP, UA, LIPID, TSH3, CBC, URMACRERAT, LILLIANA, FE and TIBC #### [address] Automated basophil %Ordered By: Dalia Dennis on 02-01-2024 Basophils/100 WBC (Bld) 0.5 % Normal . [facility] Comment on above: Performed By: #### C MP, UA, LIPID, TSH3, CBC, URMACRERAT, LILLIANA, FE and TIBC #### [address] Automated basophil countOrde red By: Dalia Dennis on 02-01-2024 Basophils (Bld) [#/Vol] 0.0 10*3/uL Normal 0.0-0.2 [facility] Comment on above: Result Comment: PERF ORMED BY: [place] [address] PATHOLOGIST PIN MACHINE OPERATOR WENDY CLARK M.D. Performed By: #### C MP, UA, LIPID, TSH3, CBC, URMACRERAT, LILLIANA, FE and TIBC #### [address] Automated blood monocyte cou ntOrdered By: Dalia Dennis on 02-01-2024 Monocytes (Bld) [#/Vol] 0.4 10*3/uL Normal 0.0-0.8 [facility] Comment on above: Performed By: #### C MP, UA, LIPID, TSH3, CBC, URMACRERAT, LILLIANA, FE and TIBC #### [address] Automated eosinophil %Ordere d By: Dalia Dennis on 02-01-2024 Eosinophils/100 WBC (Bld) 1.3 % Normal . [facility] Comment on above: Performed By: #### C MP, UA, LIPID, TSH3, CBC, URMACRERAT, LILLIANA, FE and TIBC #### [address] Automated eosinophil countOr dered By: Dalia Dennis on 02-01-2024 Eosinophils (Bld) [#/Vol] 0.1 10*3/uL Normal 0.0-0.45 [facility] Comment on above: Performed By: #### C MP, UA, LIPID, TSH3, CBC, URMACRERAT, LILLIANA, FE and TIBC #### [address] Automated monocyte %Ordered By: Dalia Dennis on 02-01-2024 Monocytes/100 WBC (Bld) 4.8 % Normal . [facility] Comment on above: Performed By: #### C MP, UA, LIPID, TSH3, CBC, URMACRERAT, LILLIANA, FE and TIBC #### [address] Automated neutrophil %Ordere d By: Dalia Dennis on 02-01-2024 Neutrophils/100 WBC (Bld) 65.3 % Normal . [facility] Comment on above: Performed By: #### C MP, UA, LIPID, TSH3, CBC, URMACRERAT, LILLIANA, FE and TIBC #### [address] Bilirubin Test strip Ql (U)O rdered By: Dalia Dennis on 02-01-2024 Bilirubin Ql (U) Negative Negative [facility] Bilirubin.total [Mass/volume ] in Serum or PlasmaOrdered By: Dalia Dennis on 02-01-2024 Bilirubin [Mass/Vol] 0.5 mg/dL Normal 0.3-1.0 [facility] Comment on above: Performed By: #### C MP, UA, LIPID, TSH3, CBC, URMACRERAT, LILLIANA, FE and TIBC #### [address] CBC W Auto Differential pane l (Bld)on 02-01-2024 Basophils (Bld) [#/Vol] 0.0 10*3/uL 0.0 - 0.2 10*3/uL [facility] Basophils/100 WBC Manual cnt (Syn fld) 0.5 % . [facility] Eosinophils (Bld) [#/Vol] 0.1 10*3/uL 0.0 - 0.45 10*3/uL [facility] Eosinophils/100 WBC Manual cnt (Syn fld) 1.3 % . [facility] Erythrocyte distribution width (RBC) [Ratio] 14.6 % 11.9 - 15.3 % [facility] Hematocrit (Bld) [Volume fraction] 39.2 % 34.0 - 46.4 % [facility] Hemoglobin (Bld) [Mass/Vol] 13.3 g/dL 11.8 - 15.4 g/dL [facility] Lymphocytes (Bld) [#/Vol] 2.6 10*3/uL 1.00 - 4.8 10*3/uL [facility] Lymphocytes/100 WBC Manual cnt (Syn fld) 28.1 % . [facility] MCH (RBC) [Entitic mass] 30.7 pg 24.7 - 34.3 pg [facility] MCHC (RBC) [Mass/Vol] 34.0 g/dL 32.0 - 35.0 g/dL [facility] MCV (RBC) [Entitic vol] 90.1 fL 80 - 100 fL [facility] Monocytes (Bld) [#/Vol] 0.4 10*3/uL 0.0 - 0.8 10*3/uL [facility] Monocytes+Macrophages /100 WBC Manual cnt (Syn fld) 4.8 % . [facility] Neutrophils (Bld) [#/Vol] 6.0 10*3/uL 1.8 - 7.7 10*3/uL [facility] Neutrophils/100 WBC Manual cnt (Syn fld) 65.3 % . [facility] NRBC 0.1 /100{WBC} 0 - 0.5 /100{WBC} [facility] Platelet mean volume (Bld) [Entitic vol] 8.7 fL 6.3 - 10.7 fL [facility] Platelets (Bld) [#/Vol] 288 10*3/uL 150 - 450 10*3/uL [facility] RBC LM.HPF (Urine sed) [#/Area] 4.34 /[HPF] 3.60 - 5.00 [facility] WBC (Bld) [#/Vol] 9.2 10*3/uL 3.8 - 11.6 10*3/uL [facility] WBC LM.HPF (Urine sed) [#/Area] 9.2 10*3/uL 3.8 - 11.6 10*3/uL [facility] Calcium [Mass/volume] in Ser um or PlasmaOrdered By: Dalia Dennis on 02-01-2024 Calcium [Mass/Vol] 8.5 mg/dL Low 8.6-10.3 [facility] Comment on above: Performed By: #### C MP, UA, LIPID, TSH3, CBC, URMACRERAT, LILLIANA, FE and TIBC #### [facility] [address] [place] [address] [place] Carbon dioxide, total [Moles /volume] in Serum or PlasmaOrdered By: Dalia Dennis on 02-01-2024 CO2 [Moles/Vol] 27.8 mmol/L Normal 21.0-31.0 [facility] Comment on above: Performed By: #### C MP, UA, LIPID, TSH3, CBC, URMACRERAT, LILLIANA, FE and TIBC #### [facility] [address] [place] [address] [place] Chloride [Moles/volume] in S zakia or PlasmaOrdered By: Dalia Dennis on 02-01-2024 Chloride [Moles/Vol] 104 mmol/L Normal 98-107 [facility] Comment on above: Performed By: #### C MP, UA, LIPID, TSH3, CBC, URMACRERAT, LILLIANA, FE and TIBC #### [facility] [address] [place] [address] [place] Cholesterol [Mass/volume] in Serum or PlasmaOrdered By: Dalia Dennis on 02-01-2024 Cholesterol [Mass/Vol] 163 mg/dL Normal 140-200 [facility] Comment on above: Chol less than 200 m g/dl low riskChol 201-239 mg/dl borderline riskChol 240 mg/dl and greater high risk Result Comment: Chol less than 200 mg/dl low risk Chol 201-239 mg/dl borderline risk Chol 240 mg/dl and greater high risk Performed By: #### C MP, UA, LIPID, TSH3, CBC, URMACRERAT, LILLIANA, FE and TIBC #### [facility] [address] Cholesterol in LDL Calc [Mas s/Vol]Ordered By: Dalia Dennis on 02-01-2024 Cholesterol in LDL [Mass/Vol] 88 mg/dL 0-100 [facility] Comment on above: LDL ATP III CLASSIFI CATIONLDL less than 100 mg/dL OptimalLDL 100-129 mg/dL Near or above optimalLDL 130-159 mg/dL Borderline highLDL 160-189 mg/dL HighLDL greater than 189 mg/dL Very high Cholesterol in VLDL Calc [Ma ss/Vol]Ordered By: Dalia Dennis on 02-01-2024 Cholesterol in VLDL [Mass/Vol] 35 mg/dL [facility] Color of Urine by AutoOrdere d By: Dalia Dennis on 02-01-2024 Color (U) Light-yellow Normal Yellow [facility] Comment on above: Order Comment: Name Collection Type:: Clean-Voided Midstream Performed By: #### C MP, UA, LIPID, TSH3, CBC, URMACRERAT, LILLIANA, FE and TIBC #### [address] Complete Blood Count Auto Di ffon 02-01-2024 Mean Corpuscular HGB Conc 34.0 g/dL Normal 32.0-35.0 [facility] Comment on above: Performed By: #### C MP, UA, LIPID, TSH3, CBC, URMACRERAT, LILLIANA, FE and TIBC #### [facility] [address] NRBC% 0.1 /100{WBC} Normal 0-0.5 [facility] Comment on above: Performed By: #### C MP, UA, LIPID, TSH3, CBC, URMACRERAT, LILLIANA, FE and TIBC #### [address] Comprehensive Metabolic Pane soniya 02-01-2024 Albumin [Mass/Vol] 3.8 g/dL Normal 3.5-5.7 [facility] Comment on above: Performed By: #### C MP, UA, LIPID, TSH3, CBC, URMACRERAT, LILLIANA, FE and TIBC #### [facility] [address] GFR/1.73 sq M.predicted MDRD (S/P/Bld) [Vol rate/Area] mL/min/{1.73_m2} Normal [facility] Comment on above: Performed By: #### C MP, UA, LIPID, TSH3, CBC, URMACRERAT, LILLIANA, FE and TIBC #### [facility] [address] Creatinine [Mass/volume] in Serum or PlasmaOrdered By: Dalia Dennis on 02-01-2024 Creatinine [Mass/Vol] 0.50 mg/dL Low 0.60-1.20 [facility] Comment on above: Performed By: #### C MP, UA, LIPID, TSH3, CBC, URMACRERAT, LILLIANA, FE and TIBC #### [facility] [address] Creatinine [Mass/volume] in UrineOrdered By: Dalia Dennis on 02-01-2024 Creatinine (U) [Mass/Vol] 74.00 mg/dL [facility] Comment on above: No reference range e stablished Erythrocyte distribution wid th [Ratio] by Automated countOrdered By: Dalia Dennis on 02-01-2024 Erythrocyte distribution width (RBC) [Ratio] 14.6 % Normal 11.9-15.3 [facility] Comment on above: Performed By: #### C MP, UA, LIPID, TSH3, CBC, URMACRERAT, LILLIANA, FE and TIBC #### [facility] [address] [place] [address] [place] Erythrocytes [#/volume] in B lood by Automated countOrdered By: Dalia Dennis on 02-01-2024 RBC (Bld) [#/Vol] 4.34 10*6/uL Normal 3.60-5.00 [facility] Comment on above: Performed By: #### C MP, UA, LIPID, TSH3, CBC, URMACRERAT, LILLIANA, FE and TIBC #### [facility] [address] [place] [address] [place] Ferritin [Mass/volume] in Se rum or PlasmaOrdered By: Dalia Dennis on 02-01-2024 Ferritin [Mass/Vol] 52.8 ng/mL Normal 11.0-306.8 [facility] Comment on above: Performed By: #### C MP, UA, LIPID, TSH3, CBC, URMACRERAT, LILLIANA, FE and TIBC #### [facility] [address] [place] [address] [place] Glucose [Mass/volume] in Ser um or PlasmaOrdered By: Dalia Dennis on 02-01-2024 Glucose [Mass/Vol] 108 mg/dL High 70-100 [facility] Comment on above: ADA recommended refe rence rangeRandom Glucose Reference Range is dependent on time and content of last meal. Glucose of more than 200 mg/dL in a nonstressed, ambulatory subject supports the diagnosis of Diabetes Mellitus. Result Comment: [place] om Glucose Reference Range is dependent on time and content of last meal. Glucose of more than 200 mg/dL in a nonstressed, ambulatory subject supports the diagnosis of Diabetes Mellitus. ADA recommended reference range Performed By: #### C MP, UA, LIPID, TSH3, CBC, URMACRERAT, LILLIANA, FE and TIBC #### [facility] [address] [place] [id number] [place] Glucose [Mass/volume] in Uri ne by Test stripOrdered By: Dalia Dennis on 02-01-2024 Glucose Test strip (U) [Mass/Vol] Normal mg/dL Normal [facility] Hematocrit [Volume Fraction] of Blood by Automated countOrdered By: Dalia Dennis on 02-01-2024 Hematocrit (Bld) [Volume fraction] 39.2 % Normal 34.0-46.4 [facility] Comment on above: Performed By: #### C MP, UA, LIPID, TSH3, CBC, URMACRERAT, LILLIANA, FE and TIBC #### [facility] [address] Hemoglobin Test strip Ql (U) Ordered By: Dalia Dennis on 02-01-2024 Hemoglobin Ql (U) Negative Negative [facility] Hemoglobin [Mass/volume] in BloodOrdered By: Dalia Dennis on 02-01-2024 Hemoglobin (Bld) [Mass/Vol] 13.3 g/dL Normal 11.8-15.4 [facility] Comment on above: Performed By: #### C MP, UA, LIPID, TSH3, CBC, URMACRERAT, LILLIANA, FE and TIBC #### [facility] [address] Iron [Mass/volume] in Serum or PlasmaOrdered By: Dalia Dennis on 02-01-2024 Iron [Mass/Vol] 88 ug/dL Normal 50-212 [facility] Comment on above: Performed By: #### C MP, UA, LIPID, TSH3, CBC, URMACRERAT, LILLIANA, FE and TIBC #### [facility] [address] Iron and TIBC Profileon % Iron Saturation 26.4 % Normal 20-50 [facility] Comment on above: Performed By: #### C MP, UA, LIPID, TSH3, CBC, URMACRERAT, LILLIANA, FE and TIBC #### [facility] [address] Total Iron Binding Capacity 333 ug/dL Normal 255-450 [facility] Comment on above: Performed By: #### C MP, UA, LIPID, TSH3, CBC, URMACRERAT, LILLIANA, FE and TIBC #### [facility] [address] Iron binding capacity [Mass/ volume] in Serum or PlasmaOrdered By: Dalia Dennis on 02-01-2024 Iron binding capacity [Mass/Vol] 333 ug/dL 255-450 [facility] Iron saturation [Mass Fracti on] in Serum or PlasmaOrdered By: Dalia Dennis on 02-01-2024 Iron saturation [Mass fraction] 26.4 % 20-50 [facility] Ketones [Presence] in Urine by Test stripOrdered By: Dalia Dennis on 02-01-2024 Ketones Ql (U) Negative Normal Negative [facility] Comment on above: Order Comment: Name Collection Type:: Clean-Voided Midstream Performed By: #### C MP, UA, LIPID, TSH3, CBC, URMACRERAT, LILLIANA, FE and TIBC #### [facility] [address] Leukocyte esterase [Presence ] in Urine by Test stripOrdered By: Dalia Dennis on 02-01-2024 Leukocyte esterase Test strip Ql (U) Negative Normal Negative [facility] Comment on above: Order Comment: Name Collection Type:: Clean-Voided Midstream Performed By: #### C MP, UA, LIPID, TSH3, CBC, URMACRERAT, LILLIANA, FE and TIBC #### [facility] [address] Leukocytes [#/volume] correc emily for nucleated erythrocytes in Blood by Automated counOrdered By: Dalia Dennis on 02-01-2024 WBC corrected for nucl RBC Auto (Bld) [#/Vol] 9.2 10*3/uL 3.8-11.6 [facility] Leukocytes [#/volume] in Blo od by Automated countOrdered By: Dalia Dennis on 02-01-2024 WBC (Bld) [#/Vol] 9.2 10*3/uL Normal 3.8-11.6 [facility] Comment on above: Performed By: #### C MP, UA, LIPID, TSH3, CBC, URMACRERAT, LILLIANA, FE and TIBC #### [facility] [address] Lipid Panelon 02-01-2024 LDL Cholesterol,Calculate d 88 mg/dL Normal 0-100 [facility] Comment on above: Result Comment: LDL ATP III CLASSIFICATION LDL less than 100 mg/dL Optimal LDL 100-129 mg/dL Near or above optimal LDL 130-159 mg/dL Borderline high LDL 160-189 mg/dL High LDL greater than 189 mg/dL Very high Performed By: #### C MP, UA, LIPID, TSH3, CBC, URMACRERAT, LILLIANA, FE and TIBC #### [address] Triglyceride w/Reflex 176 mg/dL High 0-149 [facility] Comment on above: Result Comment: TRIG ATP III CLASSIFICATION TRIG less than 150 mg/dL Normal TRIG 150-199 mg/dL Borderline high TRIG 200-500 mg/dL High TRIG greater than 500 mg/dL Very high Standard traceable to the Center for Disease Conrtrol and Prevention (CDC) test method. Performed By: #### C MP, UA, LIPID, TSH3, CBC, URMACRERAT, LILLIANA, FE and TIBC #### [address] VLDL CHOLESTEROL 35 mg/dL Normal [facility] Comment on above: Performed By: #### C MP, UA, LIPID, TSH3, CBC, URMACRERAT, LILLIANA, FE and TIBC #### [address] Lymphocytes [#/volume] in Bl ood by Automated countOrdered By: Dalia Dennis on 02-01-2024 Lymphocytes (Bld) [#/Vol] 2.6 10*3/uL Normal 1.00-4.8 [facility] Comment on above: Performed By: #### C MP, UA, LIPID, TSH3, CBC, URMACRERAT, LILLIANA, FE and TIBC #### [address] Lymphocytes/100 leukocytes i n Blood by Automated countOrdered By: Dalia Dennis on 02-01-2024 Lymphocytes/100 WBC (Bld) 28.1 % Normal . [facility] Comment on above: Performed By: #### C MP, UA, LIPID, TSH3, CBC, URMACRERAT, LILLIANA, FE and TIBC #### [address] MCH [Entitic mass] by Automa emily countOrdered By: Dalia Dennis on 02-01-2024 MCH (RBC) [Entitic mass] 30.7 pg Normal 24.7-34.3 [facility] Comment on above: Performed By: #### C MP, UA, LIPID, TSH3, CBC, URMACRERAT, LILLIANA, FE and TIBC #### [address] MCHC Auto (RBC) [Mass/Vol]Or dered By: Dalia Dennis on 02-01-2024 MCHC (RBC) [Mass/Vol] 34.0 g/dL 32.0-35.0 [facility] MCV [Entitic volume] by Auto mated countOrdered By: Dalia Dennis on 02-01-2024 MCV (RBC) [Entitic vol] 90.1 fL Normal 80-100 [facility] Comment on above: Performed By: #### C MP, UA, LIPID, TSH3, CBC, URMACRERAT, LILLIANA, FE and TIBC #### [address] MicroAlb Creat Ratio,Uon Creatinine, Urine (Random) 74.00 mg/dL Normal [facility] Comment on above: Result Comment: No r eference range established Performed By: #### C MP, UA, LIPID, TSH3, CBC, URMACRERAT, LILLIANA, FE and TIBC #### [address] Microalbumin/Creatini ne Ratio Not performed Normal 0.0-30.0 [facility] Comment on above: Result Comment: PERF ORMED BY: [place] [address] PATHOLOGIST PIN MACHINE OPERATOR WENDY CLARK M.D. Performed By: #### C MP, UA, LIPID, TSH3, CBC, URMACRERAT, LILLIANA, FE and TIBC #### [address] Microalbumin [Mass/volume] i n UrineOrdered By: Dalia Dennis on 02-01-2024 Albumin DL <= 20 mg/L (U) [Mass/Vol] mg/dL Normal 0.0-1.8 [facility] Comment on above: Performed By: #### C MP, UA, LIPID, TSH3, CBC, URMACRERAT, LILLIANA, FE and TIBC #### [facility] [address] Microalbumin/Creatinine rati o panel (U)on 02-01-2024 Albumin [Mass/Vol] g/dL 0.0 - 1.8 [facility] Creatinine spec 2 (U) [Mass/Vol] 74.00 mg/dL [facility] Comment on above: No reference range e stablished MICROALBUMIN/CREATINI NE RATIO Not performed 0.0 - 30.0 [facility] Neutrophils [#/volume] in Bl ood by Automated countOrdered By: Dalia Dennis on 02-01-2024 Neutrophils (Bld) [#/Vol] 6.0 10*3/uL Normal 1.8-7.7 [facility] Comment on above: Performed By: #### C MP, UA, LIPID, TSH3, CBC, URMACRERAT, LILLIANA, FE and TIBC #### [facility] [address] Nitrite Test strip Ql (U)Ord ered By: Dalia Dennis on 02-01-2024 Nitrite Ql (U) Negative Negative [facility] No Panel InformationOrdered By: Dalia Dennis on 02-01-2024 Estimated GFR (CKD-EPI) > 60.0 mL/Min [facility] Creatinine Clearance (Chem N/A [facility] Nucleated erythrocytes [Pres ence] in Blood by Automated countOrdered By: Dalia Dennis on 02-01-2024 Nucleated RBC Auto Ql (Bld) 0.1 /100{WBC} 0-0.5 [facility] Platelet mean volume [Entiti c volume] in Blood by Automated countOrdered By: Dalia Dennis on 02-01-2024 Platelet mean volume (Bld) [Entitic vol] 8.7 fL Normal 6.3-10.7 [facility] Comment on above: Performed By: #### C MP, UA, LIPID, TSH3, CBC, URMACRERAT, LILLIANA, FE and TIBC #### [facility] [address] [place] [address] [place] Platelets [#/volume] in Bloo d by Automated countOrdered By: Dalia Dennis on 02-01-2024 Platelets (Bld) [#/Vol] 288 10*3/uL Normal 150-450 [facility] Comment on above: Performed By: #### C MP, UA, LIPID, TSH3, CBC, URMACRERAT, LILLIANA, FE and TIBC #### [facility] [address] Potassium [Moles/volume] in Serum or PlasmaOrdered By: Dalia Dennis on 02-01-2024 Potassium [Moles/Vol] 4.3 mmol/L Normal 3.5-5.1 [facility] Comment on above: Performed By: #### C MP, UA, LIPID, TSH3, CBC, URMACRERAT, LILLIANA, FE and TIBC #### [facility] [address] Protein Test strip (U) [Mass /Vol]Ordered By: Dalia Dennis on 02-01-2024 Protein (U) [Mass/Vol] Negative Negative [facility] Protein [Mass/volume] in Ser um or PlasmaOrdered By: Dalia Dennis on 02-01-2024 Protein [Mass/Vol] 6.0 g/dL Low 6.4-8.9 [facility] Comment on above: Performed By: #### C MP, UA, LIPID, TSH3, CBC, URMACRERAT, LILLIANA, FE and TIBC #### [facility] [address] Serum globulin measurement b y calculation (mass/volume)Ordered By: Dalia Dennis on 02-01-2024 Globulin (S) [Mass/Vol] 2.2 g/dL Normal [facility] Comment on above: Performed By: #### C MP, UA, LIPID, TSH3, CBC, URMACRERAT, LILLIANA, FE and TIBC #### [facility] [address] Serum or plasma albumin/glob ulin mass ratioOrdered By: Dalia Dennis on 02-01-2024 Albumin/Globulin [Mass ratio] 1.7 {ratio} Normal [facility] Comment on above: Performed By: #### C MP, UA, LIPID, TSH3, CBC, URMACRERAT, LILLIANA, FE and TIBC #### [address] Serum or plasma anion gap de terminationOrdered By: Dalia Dennis on 02-01-2024 Anion gap [Moles/Vol] 10.5 mmol/L Normal 6.0-15.0 [facility] Comment on above: Performed By: #### C MP, UA, LIPID, TSH3, CBC, URMACRERAT, LILLIANA, FE and TIBC #### [address] Serum or plasma high density lipoprotein (HDL) cholesterol measurementOrdered By: Dalia Dennis on 02-01-2024 Cholesterol in HDL [Mass/Vol] 40 mg/dL Normal 23-92 [facility] Comment on above: HDL CHOL ATP-III CLA SSIFICATION Cardiovascular RiskHDL > or equal to 60 mg/dL LOWHDL < 40 mg/dL HIGH Result Comment: HDL CHOL ATP-III CLASSIFICATION Cardiovascular Risk HDL > or equal to 60 mg/dL LOW HDL < 40 mg/dL HIGH Performed By: #### C MP, UA, LIPID, TSH3, CBC, URMACRERAT, LILLIANA, FE and TIBC #### [address] Serum or plasma total choles terol/high density lipoprotein (HDL) cholesterol mass ratOrdered By: Dalia Dennis on 02-01-2024 Cholesterol.total/Cho lesterol in HDL [Mass ratio] 4.1 {ratio} Normal <5.0 [facility] Comment on above: Performed By: #### C MP, UA, LIPID, TSH3, CBC, URMACRERAT, LILLIANA, FE and TIBC #### [address] [place] [address] [place] Sodium [Moles/volume] in Ser um or PlasmaOrdered By: Dalia Dennis on 02-01-2024 Sodium [Moles/Vol] 138 mmol/L Normal 136-145 [facility] Comment on above: Performed By: #### C MP, UA, LIPID, TSH3, CBC, URMACRERAT, LILLIANA, FE and TIBC #### [facility] [address] Specific gravity Test strip (U) [Rel density]Ordered By: Dalia Dennis on 02-01-2024 Specific gravity (U) [Rel density] 1.016 1.001-1.03 0 [facility] Thyrotropin [Units/volume] i n Serum or PlasmaOrdered By: Dalia Dennis on 02-01-2024 TSH Qn 1.71 m[IU]/L Normal 0.45-5.33 [facility] Comment on above: Result Comment: PERF ORMED BY: [place] [address] PATHOLOGIST PIN MACHINE OPERATOR WENDY CLARK M.D. Performed By: #### C MP, UA, LIPID, TSH3, CBC, URMACRERAT, LILLIANA, FE and TIBC #### [address] Transferrin [Mass/volume] in Serum or PlasmaOrdered By: Dalia Dennis on 02-01-2024 Transferrin [Mass/Vol] 238 mg/dL Normal 203-362 [facility] Comment on above: Performed By: #### C MP, UA, LIPID, TSH3, CBC, URMACRERAT, LILLIANA, FE and TIBC #### [address] Triglyceride [Mass/volume] i n Serum or PlasmaOrdered By: Dalia Dennis on 02-01-2024 Triglyceride [Mass/Vol] 176 mg/dL High 0-149 [facility] Comment on above: TRIG ATP III CLASSIF ICATIONTRIG less than 150 mg/dL NormalTRIG 150-199 mg/dL Borderline highTRIG 200-500 mg/dL High TRIG greater than 500 mg/dL Very highStandard traceable to the Center for Disease Conrtrol and Prevention (CDC) test method. Urea nitrogen [Mass/volume] in Serum or PlasmaOrdered By: Dalia Dennis on 02-01-2024 Urea nitrogen [Mass/Vol] 10 mg/dL Normal 7-25 [facility] Comment on above: Performed By: #### C MP, UA, LIPID, TSH3, CBC, URMACRERAT, LILLIANA, FE and TIBC #### [address] Urinalysison 02-01-2024 Bilirubin,Urine Negative Normal Negative [facility] Comment on above: Order Comment: Name Collection Type:: Clean-Voided Midstream Performed By: #### C MP, UA, LIPID, TSH3, CBC, URMACRERAT, LILLIANA, FE and TIBC #### [address] Glucose Ql (U) Normal Normal Normal [facility] Comment on above: Order Comment: Name Collection Type:: Clean-Voided Midstream Performed By: #### C MP, UA, LIPID, TSH3, CBC, URMACRERAT, LILLIANA, FE and TIBC #### [address] Nitrite,Urine Negative Normal Negative [facility] Comment on above: Order Comment: Name Collection Type:: Clean-Voided Midstream Performed By: #### C MP, UA, LIPID, TSH3, CBC, URMACRERAT, LILLIANA, FE and TIBC #### [address] Occult Blood,Urine Negative Normal Negative [facility] Comment on above: Order Comment: Name Collection Type:: Clean-Voided Midstream Result Comment: PERF ORMED BY: [place] [address] PATHOLOGIST PIN MACHINE OPERATOR WENDY CLARK M.D. Performed By: #### C MP, UA, LIPID, TSH3, CBC, URMACRERAT, LILLIANA, FE and TIBC #### [facility] [address] Protein,Urine Negative Normal Negative [facility] Comment on above: Order Comment: Name Collection Type:: Clean-Voided Midstream Performed By: #### C MP, UA, LIPID, TSH3, CBC, URMACRERAT, LILLIANA, FE and TIBC #### [facility] [address] Specificy [place],Urine 1.016 Normal 1.001-1.03 0 [facility] Comment on above: Order Comment: Name Collection Type:: Clean-Voided Midstream Performed By: #### C MP, UA, LIPID, TSH3, CBC, URMACRERAT, LILLIANA, FE and TIBC #### [facility] [address] Urobilinogen,Urine Normal Normal Normal [facility] Comment on above: Order Comment: Name Collection Type:: Clean-Voided Midstream Performed By: #### C MP, UA, LIPID, TSH3, CBC, URMACRERAT, LILLIANA, FE and TIBC #### [facility] [address] Urinalysis, manual onlyon Appearance (U) Clear Clear [facility] BILIRUBIN,URINE Negative Negative [facility] Color (U) Light-Yellow Yellow [facility] Glucose Ql (U) Normal Normal [facility] Ketones Ql (U) Negative Negative [facility] Leukocyte esterase Test strip Ql (U) Negative Negative [facility] NITRITE,URINE Negative Negative [facility] OCCULT BLOOD,URINE Negative Negative [facility] pH (U) 6.0 [pH] 5.0 - 9.0 [facility] PROTEIN,URINE Negative Negative [facility] SPECIFICY GRAVITY,URINE 1.016 1.001 - 1.030 [facility] UROBILINOGEN,URINE Normal Normal [facility] Name Collection Type :: Clean-Voided Midstream [facility] Urine appearanceOrdered By: Dalia Dennis on 02-01-2024 Appearance (U) Clear Normal Clear [facility] Comment on above: Order Comment: Name Collection Type:: Clean-Voided Midstream Performed By: #### C MP, UA, LIPID, TSH3, CBC, URMACRERAT, LILLIANA, FE and TIBC #### [facility] [address] Urine microalbumin/creatinin e mass ratioOrdered By: Dalia Dennis on 02-01-2024 Albumin/Creatinine DL <= 20 mg/L (U) [Mass ratio] TNP [facility] Comment on above: Test not performed Urobilinogen Test strip (U) [Mass/Vol]Ordered By: Dalia Dennis on 02-01-2024 Urobilinogen (U) [Mass/Vol] Normal mg/dL Normal [facility] pH of Urine by Test stripOrd ered By: Dalia Dennis on 02-01-2024 pH (U) 6.0 [pH] Normal 5.0-9.0 [facility] Comment on above: Order Comment: Name Collection Type:: Clean-Voided Midstream Performed By: #### C MP, UA, LIPID, TSH3, CBC, URMACRERAT, LILLIANA, FE and TIBC #### [facility] [address] No Panel InformationOrdered By: Selina Lomas on 12-05-2023 COVID Antigen (POC) [facility] Ferritin [Mass/volume] in Se rum or PlasmaOrdered By: Melissa Singh on 07-28-2023 Ferritin [Mass/Vol] 180.6 ng/mL 11.0-306.8 [facility] Folate [Mass/volume] in Seru m or PlasmaOrdered By: Melissa Singh on 07-28-2023 Folate [Mass/Vol] 43.0 ng/mL >5.9 [facility] Comment on above: Folate reference ran ge: >5.9 ng/mlThe WHO technical consultation on folate and vitamin [id number] has determined that folate concentrations lessthan 4 ng/ml are considered deficient. Iron [Mass/volume] in Serum or PlasmaOrdered By: Melissa Singh on 07-28-2023 Iron [Mass/Vol] 100 ug/dL 50-212 [facility] Magnesium [Mass/volume] in S zakia or PlasmaOrdered By: Melissa Singh on 07-28-2023 Magnesium [Mass/Vol] 2.0 mg/dL 1.9-2.7 [facility] Thyrotropin [Units/volume] i n Serum or PlasmaOrdered By: Melissa Singh on 07-28-2023 TSH Qn 1.20 m[IU]/L 0.45-5.33 [facility] Vitamin B12 ser/plasOrdered By: Melissa Singh on 07-28-2023 Cobalamin (Vitamin B12) [Mass/Vol] 432 pg/mL 180-914 [facility] Vitamin D+Metabolites [Mass/ volume] in Serum or PlasmaOrdered By: Melissa Singh on 07-28-2023 Vitamin D+Metabolites [Mass/Vol] 32.9 ng/mL 30-100 [facility] Comment on above: VITAMIN D [...] aPTT Coag (PPP) [Time] 29.6 s 25.1-36.5 [facility] Comment on above: A hematocrit value g reater than 55% may lead to inaccurate results in coagulation testing. Patients having hematocrit values >55% require a special collection tube for coagulation studies. Please contact the laboratory at [phone] for redraw instructions. Bacterial blood cultureOrder ed By: Jorge Jarrett on 07-22-2023 Bacteria identified Cx Nom (Bld) NO GROWTH 5 DAYS [facility] Bacteria identified Cx Nom (Bld) NO GROWTH 5 DAYS [facility] Basophils Auto (Bld) [#/Vol] Ordered By: Jorge Jarrett on 07-22-2023 Basophils (Bld) [#/Vol] 0.1 10*3/uL 0.0-0.2 [facility] Basophils/100 WBC Auto (Bld) Ordered By: Jorge Jarrett on 07-22-2023 Basophils/100 WBC (Bld) 0.5 % . [facility] COVID CepheidOrdered By: Iris Jarrett on 07-22-2023 SARS-CoV-2 (COVID-19) Ab IA Ql Negative Negative [facility] Comment on above: This is a duplicate [employer] Xpert Xpress CoV-2/Flu/RSV Plus RNA by RT-PCR result to be used for statistical tracking purpose only. SARS-CoV-2 (COVID-19) RNA CESAR+probe Ql (Unsp spec) [facility] SARS-CoV-2 (COVID-19) RNA CESAR+probe Ql (Unsp spec) [facility] Calcium [Mass/volume] in Ser um or PlasmaOrdered By: Jorge Jarrett on 07-22-2023 Calcium [Mass/Vol] 8.7 mg/dL 8.6-10.3 [facility] Carbon dioxide, total [Moles /volume] in Serum or PlasmaOrdered By: Jorge Jarrett on 07-22-2023 CO2 [Moles/Vol] 24.1 mmol/L 21.0-31.0 [facility] Chloride [Moles/volume] in S zakia or PlasmaOrdered By: Jorge Jarrett on 07-22-2023 Chloride [Moles/Vol] 104 mmol/L 98-107 [facility] Creatine kinase [Enzymatic a ctivity/volume] in Serum or PlasmaOrdered By: Jorge Jarrett on 07-22-2023 CK [Catalytic activity/Vol] 37 U/L 30-223 [facility] Creatinine [Mass/volume] in Serum or PlasmaOrdered By: Jorge Jarrett on 07-22-2023 Creatinine [Mass/Vol] 0.52 mg/dL 0.60-1.20 [facility] Eosinophils Auto (Bld) [#/Vo l]Ordered By: Jorge Jarrett on 07-22-2023 Eosinophils (Bld) [#/Vol] 0.0 10*3/uL 0.0-0.45 [facility] Eosinophils/100 WBC Auto (Bl d)Ordered By: Jorge Jarrett on 07-22-2023 Eosinophils/100 WBC (Bld) 0.3 % . [facility] Erythrocyte distribution wid th Auto (RBC) [Ratio]Ordered By: Jorge Jarrett on 07-22-2023 Erythrocyte distribution width (RBC) [Ratio] 14.9 % 11.9-15.3 [facility] Glucose [Mass/volume] in Ser um [...] Hematocrit (Bld) [Volume fraction] 41.0 % 34.0-46.4 [facility] Hemoglobin [Mass/volume] in BloodOrdered By: Jorge Jarrett on 07-22-2023 Hemoglobin (Bld) [Mass/Vol] 13.8 g/dL 11.8-15.4 [facility] INR in Platelet poor plasma by Coagulation assayOrdered By: Jorge Jarrett on 07-22-2023 INR Coag (PPP) [Relative time] 1.0 {INR} [facility] Comment on above: INR Therapeutic [...] on 07-22-2023 Lactate [Moles/Vol] 1.3 mmol/L 0.5-2.2 [facility] Leukocytes [#/volume] correc emily for nucleated erythrocytes in Blood by Automated counOrdered By: Jorge Jarrett on 07-22-2023 WBC corrected for nucl RBC Auto (Bld) [#/Vol] 9.9 10*3/uL 3.8-11.6 [facility] Lymphocytes Auto (Bld) [#/Vo l]Ordered By: Jorge Jarrett on 07-22-2023 Lymphocytes (Bld) [#/Vol] 0.9 10*3/uL 1.00-4.8 [facility] Lymphocytes/100 WBC Auto (Bl d)Ordered By: Jorge Jarrett on 07-22-2023 Lymphocytes/100 WBC (Bld) 8.7 % . [facility] MCH Auto (RBC) [Entitic mass ]Ordered By: Jorge Jarrett on 07-22-2023 MCH (RBC) [Entitic mass] 29.7 pg 24.7-34.3 [facility] MCHC Auto (RBC) [Mass/Vol]Or dered By: Jorge Jarrett on 07-22-2023 MCHC (RBC) [Mass/Vol] 33.7 g/dL 32.0-35.0 [facility] MCV Auto (RBC) [Entitic vol] Ordered By: Jorge Jarrett on 07-22-2023 MCV (RBC) [Entitic vol] 88.2 fL 80-100 [facility] Monocyte distribution width [Entitic volume] in Blood by AutomatedOrdered By: Jorge Jarrett on 07-22-2023 Monocyte distribution width Auto (Bld) [Entitic vol] 27.10 % 0.00-20.00 [facility] Comment on above: For adults in ED, MD W > 20.0 may be associated with a higher risk of sepsis during the first 12 hrs of hospital admission Monocytes Auto (Bld) [#/Vol] Ordered By: Jorge Jarrett on 07-22-2023 Monocytes (Bld) [#/Vol] 0.6 10*3/uL 0.0-0.8 [facility] Monocytes/100 WBC Auto (Bld) Ordered By: Jorge Jarrett on 07-22-2023 Monocytes/100 WBC (Bld) 6.2 % . [facility] Natriuretic peptide B [Mass/ Vol]Ordered By: Jorge Jarrett on 07-22-2023 Natriuretic peptide B (Bld) [Mass/Vol] 67.0 pg/mL 5-100 [facility] Neutrophils Auto (Bld) [#/Vo l]Ordered By: Jorge Jarrett on 07-22-2023 Neutrophils (Bld) [#/Vol] 8.3 10*3/uL 1.8-7.7 [facility] Neutrophils/100 WBC Auto (Bl d)Ordered By: Jorge Jarrett on 07-22-2023 Neutrophils/100 WBC (Bld) 84.3 % . [facility] No Panel InformationOrdered By: Jorge Jarrett on 07-22-2023 Estimated GFR (CKD-EPI) > 60.0 mL/Min [facility] Creatinine Clearance (Chem 184.90 [facility] Nucleated erythrocytes [Pres ence] in Blood by Automated countOrdered By: Jorge Jarrett on 07-22-2023 Nucleated RBC Auto Ql (Bld) 0.0 /100{WBC} 0-0.5 [facility] Platelet mean volume Auto (B ld) [Entitic vol]Ordered By: Jorge Jarrett on 07-22-2023 Platelet mean volume (Bld) [Entitic vol] 7.7 fL 6.3-10.7 [facility] Platelets Auto (Bld) [#/Vol] Ordered By: Jorge Jarrett on 07-22-2023 Platelets (Bld) [#/Vol] 347 10*3/uL 150-450 [facility] Potassium [Moles/volume] in Serum or PlasmaOrdered By: Jorge Jarrett on 07-22-2023 Potassium [Moles/Vol] 3.6 mmol/L 3.5-5.1 [facility] Prothrombin time (PT)Ordered By: Jorge Jarrett on 07-22-2023 PT Coag (PPP) [Time] 11.6 s 9.0-12.9 [facility] Comment on above: A hematocrit value g reater than 55% may lead to inaccurate results in coagulation testing. Patients having hematocrit values >55% require a special collection tube for coagulation studies. Please contact the laboratory at [phone] for redraw instructions. RBC Auto (Bld) [#/Vol]Ordere d By: Jorge Jarrett on 07-22-2023 RBC (Bld) [#/Vol] 4.64 10*6/uL 3.60-5.00 [facility] Serum or plasma anion gap de terminationOrdered By: Jorge Jarrett on 07-22-2023 Anion gap [Moles/Vol] 12.5 mmol/L 6.0-15.0 [facility] Sodium [Moles/volume] in Ser um or PlasmaOrdered By: Jorge Jarrett on 07-22-2023 Sodium [Moles/Vol] 137 mmol/L 136-145 [facility] Troponin I.cardiac [Mass/vol ume] in Serum or Plasma by Detection limit <= 0.01 ng/Ordered By: Jorge Jarrett on 07-22-2023 Troponin I.cardiac DL <= 0.01 ng/mL [Mass/Vol] < 2.3 pg/mL 0.0-15.0 [facility] Urea nitrogen [Mass/volume] in Serum or PlasmaOrdered By: Jorge Jarrett on 07-22-2023 Urea nitrogen [Mass/Vol] 6 mg/dL 7-25 [facility] WBC Auto (Bld) [#/Vol]Ordere d By: Jorge Jarrett on 07-22-2023 WBC (Bld) [#/Vol] 9.9 10*3/uL 3.8-11.6 [facility] CNPNon 07-08-2023 CNPN Telephone (RHEUMN) -- LUPE PICKARD ([id number]) 1975 F Date Time Provider Department 07/08/23 [...] times daily. - FE FUMARATE/CA CARB/VITAMIN D3 ([id number] FUMARATE ORAL) Take by mouth. - Multivitamin [...] Status:Closed by STEPHIE BRAMBILA on 07/08/23 Normal [facility] COVID Quick Testingon 2023 Result Positive Slated Other Quick Strepon 07-08-2023 S. pyogenes Org specific cx Ql (Throat) Positive Slated Other Quick Strep Slated Other CNPCaroline 05-24-2023 [facility] Telephone (ADRY) -- LUPE PICKARD ([id number]) 1975 F Date Time Provider Department 05/24/23 [...] times daily. - FE FUMARATE/CA CARB/VITAMIN D3 ([id number] FUMARATE ORAL) Take by mouth. - Multivitamin [...] Status:Closed by STEPHIE BRAMBILA on 05/24/23 [facility] Ser[facility]-mCncon 05-19-2023 Complement C3 [Mass/Vol] 128 mg/dL Normal 86-166 [facility] Comment on above: Order Comment: Speci men Type: BLOOD SPECIMEN Ordering Facility: [facility] Address: [address] [place] [address] Performed By: #### V ITB6 #### [facility] CLIA [id number] [address] [place] [address] C4 SerPl-mCncon 05-19-2023 Complement C4 [Mass/Vol] 32 mg/dL Normal 13-46 [facility] Comment on above: Order Comment: Speci men Type: BLOOD SPECIMEN Ordering Facility: [facility] Address: [address] [place] [address] Performed By: #### V ITB6 #### [facility] CLIA [id number] [address] [place] [address] CBC W Auto Differential pane l (Bld)on 05-19-2023 Basophils (Bld) [#/Vol] 0.03 10*3/uL Normal <0.11 [facility] Comment on above: Order Comment: Speci men Type: BLOOD SPECIMEN Ordering Facility: [facility] Address: [address] [place] [address] Performed By: #### V ITB6 #### [facility] CLIA [id number] [address] [place] [address] Basophils/100 WBC (Bld) 0.3 % Normal [facility] Comment on above: Order Comment: Speci men Type: BLOOD SPECIMEN Ordering Facility: [facility] Address: [address] [place] [address] Performed By: #### V ITB6 #### [facility] CLIA [id number] [address] [place] [address] Differential cell count method Nom (Bld) Auto Normal [facility] Comment on above: Order Comment: Speci men Type: BLOOD SPECIMEN Ordering Facility: [facility] Address: [address] [place] [address] Performed By: #### V ITB6 #### [facility] CLIA [id number] [address] [place] [address] Eosinophils (Bld) [#/Vol] 0.09 10*3/uL Normal <0.46 [facility] Comment on above: Order Comment: Speci men Type: BLOOD SPECIMEN Ordering Facility: [facility] Address: [address] [place] [address] Performed By: #### V ITB6 #### [facility] CLIA [id number] [address] [place] [address] Eosinophils/100 WBC (Bld) 0.8 % Normal [facility] Comment on above: Order Comment: Speci men Type: BLOOD SPECIMEN Ordering Facility: [facility] Address: [address] [place] [address] Performed By: #### V ITB6 #### [facility] CLIA [id number] [address] [place] [address] Erythrocyte distribution width (RBC) [Ratio] 14.7 % Normal 11.5-15.0 [facility] Comment on above: Order Comment: Speci men Type: BLOOD SPECIMEN Ordering Facility: [facility] Address: [address] [place] [address] Performed By: #### V ITB6 #### [facility] CLIA [id number] [address] [place] [address] Hematocrit (Bld) [Volume fraction] 42.6 % Normal 36.0-46.0 [facility] Comment on above: Order Comment: Speci men Type: BLOOD SPECIMEN Ordering Facility: [facility] Address: [address] [place] [address] Performed By: #### V ITB6 #### [facility] CLIA [id number] [address] [place] [address] Hemoglobin (Bld) [Mass/Vol] 14.2 g/dL Normal 11.5-15.5 [facility] Comment on above: Order Comment: Speci men Type: BLOOD SPECIMEN Ordering Facility: [facility] Address: [address] [place] [address] Performed By: #### V ITB6 #### [facility] CLIA [id number] [address] [place] [address] Immature granulocytes (Bld) [#/Vol] 0.04 10*3/uL Normal <0.10 [facility] Comment on above: Order Comment: Speci men Type: BLOOD SPECIMEN Ordering Facility: [facility] Address: [address] [place] [address] Performed By: #### V ITB6 #### [facility] CLIA [id number] [address] [place] [address] Immature granulocytes/100 WBC (Bld) 0.4 % Normal [facility] Comment on above: Order Comment: Speci men Type: BLOOD SPECIMEN Ordering Facility: [facility] Address: [address] [place] [address] Performed By: #### V ITB6 #### [facility] CLIA [id number] [address] [place] [address] Lymphocytes (Bld) [#/Vol] 3.03 10*3/uL Normal 1.00-4.00 [facility] Comment on above: Order Comment: Speci men Type: BLOOD SPECIMEN Ordering Facility: [facility] Address: [address] [place] [address] Performed By: #### V ITB6 #### [facility] CLIA [id number] [address] [place] [address] Lymphocytes/100 WBC (Bld) 28.3 % Normal [facility] Comment on above: Order Comment: Speci men Type: BLOOD SPECIMEN Ordering Facility: [facility] Address: [address] [place] [address] Performed By: #### V ITB6 #### [facility] CLIA [id number] [address] [place] [address] MCH (RBC) [Entitic mass] 29.2 pg Normal 26.0-34.0 [facility] Comment on above: Order Comment: Speci men Type: BLOOD SPECIMEN Ordering Facility: [facility] Address: [address] [place] [address] Performed By: #### V ITB6 #### [facility] CLIA [id number] [address] [place] [address] MCHC (RBC) [Mass/Vol] 33.3 g/dL Normal 30.5-36.0 [facility] Comment on above: Order Comment: Speci men Type: BLOOD SPECIMEN Ordering Facility: [facility] Address: [address] [place] [address] Performed By: #### V ITB6 #### [facility] CLIA [id number] [address] [place] [address] MCV (RBC) [Entitic vol] 87.5 fL Normal 80.0-100.0 [facility] Comment on above: Order Comment: Speci men Type: BLOOD SPECIMEN Ordering Facility: [facility] Address: [address] [place] [address] Performed By: #### V ITB6 #### [facility] CLIA [id number] [address] [place] [address] Monocytes (Bld) [#/Vol] 0.49 10*3/uL Normal <0.87 [facility] Comment on above: Order Comment: Speci men Type: BLOOD SPECIMEN Ordering Facility: [facility] Address: [address] [place] [address] Performed By: #### V ITB6 #### [facility] CLIA [id number] [address] [place] [address] Monocytes/100 WBC (Bld) 4.6 % Normal [facility] Comment on above: Order Comment: Speci men Type: BLOOD SPECIMEN Ordering Facility: [facility] Address: [address] [place] [address] Performed By: #### V ITB6 #### [facility] CLIA [id number] [address] [place] [address] Neutrophils (Bld) [#/Vol] 7.01 10*3/uL Normal 1.45-7.50 [facility] Comment on above: Order Comment: Speci men Type: BLOOD SPECIMEN Ordering Facility: [facility] Address: [address] [place] [address] Performed By: #### V ITB6 #### [facility] CLIA [id number] [address] [place] [address] Neutrophils/100 WBC (Bld) 65.6 % Normal [facility] Comment on above: Order Comment: Speci men Type: BLOOD SPECIMEN Ordering Facility: [facility] Address: [address] [place] [address] Performed By: #### V ITB6 #### [facility] CLIA [id number] [address] [place] [address] Nucleated RBC (Bld) [#/Vol] 10*3/uL Normal <0.01 [facility] Comment on above: Order Comment: Speci men Type: BLOOD SPECIMEN Ordering Facility: [facility] Address: [address] [place] [address] Performed By: #### V ITB6 #### [facility] CLIA [id number] [address] [place] [address] Nucleated RBC/100 WBC (Bld) [Ratio] 0.0 /100 WBC Normal [facility] Comment on above: Order Comment: Speci men Type: BLOOD SPECIMEN Ordering Facility: [facility] Address: [address] [place] [address] Performed By: #### V ITB6 #### [facility] CLIA [id number] [address] [place] [address] Platelet mean volume (Bld) [Entitic vol] 9.1 fL Normal 9.0-12.7 [facility] Comment on above: Order Comment: Speci men Type: BLOOD SPECIMEN Ordering Facility: [facility] Address: [address] [place] [address] Performed By: #### V ITB6 #### [facility] CLIA [id number] [address] [place] [address] Platelets (Bld) [#/Vol] 364 10*3/uL Normal 150-400 [facility] Comment on above: Order Comment: Speci men Type: BLOOD SPECIMEN Ordering Facility: [facility] Address: [address] [place] [address] Performed By: #### V ITB6 #### [facility] CLIA [id number] [address] [place] [address] RBC (Bld) [#/Vol] 4.87 10*6/uL Normal 3.90-5.20 [facility] Comment on above: Order Comment: Speci men Type: BLOOD SPECIMEN Ordering Facility: [facility] Address: [address] [place] [address] Performed By: #### V ITB6 #### [facility] CLIA [id number] [address] [place] [address] WBC (Bld) [#/Vol] 10.69 10*3/uL Normal 3.70-11.00 [facility] Comment on above: Order Comment: Speci men Type: BLOOD SPECIMEN Ordering Facility: [facility] Address: [address] [place] [address] Performed By: #### V ITB6 #### [facility] CLIA [id number] [address] [place] [address] Centromere Ab IF Ql (S)on Centromere Ab Qn (S) <0.2 Normal <1.0 [facility] Comment on above: Order Comment: Speci men Type: BLOOD SPECIMEN Ordering Facility: [facility] Address: [address] [place] [address] Result Comment: Anti -centromere antibody is used as in aid in diagnosis of systemic sclerosis. Clinical correlation is required. Test Methodology: Multiplex flow immunoassay. Performed By: #### 5 1775-5, 09892-2, 25122-7, 47101-0, 50170-3, 96965-9, 02395-2, 56350-4 #### [facility] CLIA [id number] [address] [place] [address] [place] CENTROMERE AB QUAL Negative Normal Negative [facility] Comment on above: Order Comment: Speci men Type: BLOOD SPECIMEN Ordering Facility: [facility] Address: [address] [place] [address] Performed By: #### 5 1775-5, 48230-9, 76960-0, 29995-0, 14032-8, 96903-1, 29831-8, 09316-9 #### [facility] CLIA [id number] [address] [place] [address] [place] Chromatin Ab Qnon 05-19-2023 CHROMATIN AB QUAL Negative Normal Negative [facility] Comment on above: Order Comment: Speci men Type: BLOOD SPECIMEN Ordering Facility: [facility] Address: [address] [place] [address] Performed By: #### 5 1775-5, 83038-2, 10759-7, 73574-8, 69327-5, 32485-4, 33634-0, 18599-6 #### [facility] CLIA [id number] [address] [place] [address] [place] Chromatin Ab SerPl-aCncon Chromatin Ab Qn <0.2 Normal <1.0 [facility] Comment on above: Order Comment: Speci men Type: BLOOD SPECIMEN Ordering Facility: [facility] Address: [address] [place] [address] Result Comment: Test Methodology: Multiplex flow immunoassay. Performed By: #### 5 1775-5, 48028-8, 95143-1, 93222-2, 44964-0, 99282-9, 77497-4, 89621-7 #### [facility] CLIA [id number] [address] [place] [address] [place] Comprehensive metabolic 2000 panelon 05-19-2023 Albumin [Mass/Vol] 4.1 g/dL Normal 3.9-4.9 [facility] Comment on above: Order Comment: Speci men Type: BLOOD SPECIMEN Ordering Facility: [facility] Address: [address] [place] [address] Performed By: #### V ITB6 #### [facility] IA [id number] [address] [place] [address] ALP [Catalytic activity/Vol] 62 U/L Normal 34-123 [facility] Comment on above: Order Comment: Speci men Type: BLOOD SPECIMEN Ordering Facility: [facility] Address: [address] [place] [address] Performed By: #### V ITB6 #### [facility] CLIA [id number] [address] [place] [address] ALT [Catalytic activity/Vol] 19 U/L Normal 7-38 [facility] Comment on above: Order Comment: Speci men Type: BLOOD SPECIMEN Ordering Facility: [facility] Address: [address] [place] [address] Performed By: #### V ITB6 #### [facility] CLIA [id number] [address] [place] [address] Anion gap [Moles/Vol] 9 mmol/L Normal 9-18 [facility] Comment on above: Order Comment: Speci men Type: BLOOD SPECIMEN Ordering Facility: [facility] Address: [address] [place] [address] Performed By: #### V ITB6 #### [facility] CLIA [id number] [address] [place] [address] AST [Catalytic activity/Vol] 10 U/L Low 13-35 [facility] Comment on above: Order Comment: Speci men Type: BLOOD SPECIMEN Ordering Facility: [facility] Address: [address] [place] [address] Performed By: #### V ITB6 #### [facility] CLIA [id number] [address] [place] [address] Bilirubin [Mass/Vol] 0.2 mg/dL Normal 0.2-1.3 [facility] Comment on above: Order Comment: Speci men Type: BLOOD SPECIMEN Ordering Facility: [facility] Address: [address] [place] [address] Performed By: #### V ITB6 #### [facility] CLIA [id number] [address] [place] [address] Calcium [Mass/Vol] 9.2 mg/dL Normal 8.5-10.2 [facility] Comment on above: Order Comment: Speci men Type: BLOOD SPECIMEN Ordering Facility: [facility] Address: [address] [place] [address] Performed By: #### V ITB6 #### [facility] CLIA [id number] [address] [place] [address] Chloride [Moles/Vol] 106 mmol/L High 97-105 [facility] Comment on above: Order Comment: Speci men Type: BLOOD SPECIMEN Ordering Facility: [facility] Address: [address] [place] [address] Performed By: #### V ITB6 #### [facility] CLIA [id number] [address] [place] [address] CO2 [Moles/Vol] 27 mmol/L Normal 22-30 [facility] Comment on above: Order Comment: Speci men Type: BLOOD SPECIMEN Ordering Facility: [facility] Address: [address] [place] [address] Performed By: #### V ITB6 #### [facility] [id number] [address] [place] [address] Creatinine [Mass/Vol] 0.65 mg/dL Normal 0.58-0.96 [facility] Comment on above: Order Comment: Speci men Type: BLOOD SPECIMEN Ordering Facility: [facility] Address: [address] [place] [address] Performed By: #### V ITB6 #### [facility] IA [id number] [address] [place] [address] Creatinine and Glomerular filtration rate.predicted panel (S/P/Bld) 110 mL/min/1.73m??? Normal >=60 [facility] Comment on above: Order Comment: Speci men Type: BLOOD SPECIMEN Ordering Facility: [facility] Address: [address] [place] [address] Result Comment: Anne mated Glomerular Filtration Rate [...] GFR. Performed By: #### V ITB6 #### [facility] IA [id number] [address] [place] [address] Glucose [Mass/Vol] 105 mg/dL High 74-99 [facility] Comment on above: Order Comment: Speci denisa Type: BLOOD SPECIMEN Ordering Facility: [facility] Address: [address] [place] [address] Result Comment: The [place] [employer] (ADA) provides guidance for cutoff [...] Standards of Medical Care in Diabetes 2016, [place] [employer]. Diabetes Care. 2016.39(Suppl 1). Performed By: #### V ITB6 #### [facility] CLIA [id number] [address] [place] [address] Potassium [Moles/Vol] 4.3 mmol/L Normal 3.7-5.1 [facility] Comment on above: Order Comment: Speci men Type: BLOOD SPECIMEN Ordering Facility: [facility] Address: [address] [place] [address] Performed By: #### V ITB6 #### [facility] CLIA [id number] [address] [place] [address] Protein [Mass/Vol] 6.7 g/dL Normal 6.3-8.0 [facility] Comment on above: Order Comment: Speci men Type: BLOOD SPECIMEN Ordering Facility: [facility] Address: [address] [place] [address] Performed By: #### V ITB6 #### [facility] CLIA [id number] [address] [place] [address] Sodium [Moles/Vol] 142 mmol/L Normal 136-144 [facility] Comment on above: Order Comment: Speci men Type: BLOOD SPECIMEN Ordering Facility: [facility] Address: [address] [place] [address] Performed By: #### V ITB6 #### [facility] CLIA [id number] [address] [place] [address] Urea nitrogen [Mass/Vol] 17 mg/dL Normal 7-21 [facility] Comment on above: Order Comment: Speci men Type: BLOOD SPECIMEN Ordering Facility: [facility] Address: [address] [place] [address] Performed By: #### V ITB6 #### [facility] CLIA [id number] [address] [place] [address] DNA ANTIBODY DS BLDon 2022 DNA ANTIBODY 25 IU/mL Normal <=200 [facility] Comment on above: Order Comment: Speci men Type: BLOOD SPECIMEN Ordering Facility: [facility] Address: [address] [place] [address] Performed By: #### V ITB6 #### [facility] CLIA [id number] [address] [place] [address] DNA ANTIBODY QUALITATIVE INTERPRETATION Negative Normal Negative [facility] Comment on above: Order Comment: Speci men Type: BLOOD SPECIMEN Ordering Facility: [facility] Address: [address] [place] [address] Performed By: #### V ITB6 #### [facility] [id number] [address] [place] [address] MARCIO Jo1 Ab Ser-aCncon 2022 Elsa-1 extractable nuclear Ab Qn (S) <0.2 Normal <1.0 [facility] Comment on above: Order Comment: Speci men Type: BLOOD SPECIMEN Ordering Facility: [facility] Address: [address] [place] [address] Performed By: #### 5 1775-5, 35554-4, 02580-8, 05735-5, 80776-5, 38421-7, 96716-8, 82043-2 #### [facility] CLIA [id number] [address] [place] [address] [place] MARCIO PEDIATRIC MEDICAL ASSISTANT Ab Ser-aCncon 2022 Ribonucleoprotein extractable nuclear Ab Qn (S) <0.2 Normal <1.0 [facility] Comment on above: Order Comment: Speci men Type: BLOOD SPECIMEN [facility] Address: [address] [place] [address] Performed By: #### 5 1775-5, 28457-8, 42299-7, 71024-8, 79795-5, 70346-5, 82041-6, 12783-5 #### [facility] CLIA [id number] [address] [place] [address] [place] Ribonucleoprotein extractable nuclear Ab Qn (S) 0.2 AI Normal <1.0 [facility] Comment on above: Order Comment: Speci men Type: BLOOD SPECIMEN [facility]ing Facility: [facility] Address: [address] [place] [address] Performed By: #### V ITB6 #### [facility] CLIA [id number] [address] [place] [address] MARCIO SM IgG Ser-aCncon 2022 Lobo extractable nuclear IgG Qn (S) <0.2 Normal <1.0 [facility] Comment on above: Order Comment: Speci men Type: BLOOD SPECIMEN Ordering Facility: [facility] Address: [address] [place] [address] Performed By: #### 5 1775-5, 50051-9, 43183-5, 33822-7, 13549-6, 03805-9, 76612-2, 99593-8 #### [facility] CLIA [id number] [address] [place] [address] [place] MARCIO SS-A Ab Ser-aCncon 05-19 Sjogrens syndrome-A extractable nuclear Ab Qn (S) <0.2 Normal <1.0 [facility] Comment on above: Order Comment: Speci men Type: BLOOD SPECIMEN Ordering Facility: [facility] Address: [address] [place] [address] Result Comment: Test Methodology: Multiplex flow immunoassay. Performed By: #### 5 5-5, 43298-2, 60117-5, 72611-3, 42156-9, 92403-4, 24048-2, 97112-0 #### [facility] CLIA [id number] [address] [place] [address] [place] MARCIO SS-B Ab Ser-aCncon 05-19 Sjogrens syndrome-B extractable nuclear Ab Qn (S) <0.2 Normal <1.0 [facility] Comment on above: Order Comment: Speci men Type: BLOOD SPECIMEN Ordering Facility: [facility] Address: [address] [place] [address] Result Comment: Anti -SSB (anti-La) antibody is used as an aid in diagnosis of a variety of systemic autoimmune diseases, especially for Sjogren's syndrome and systemic lupus erythematosus. Clinical correlation is required. Test Methodology: Multiplex flow immunoassay. Performed By: #### 5 1775-5, 19465-9, 70455-0, 77693-2, 68707-0, 40600-7, 02803-4, 37023-3 #### [facility] CLIA [id number] [address] [place] [address] [place] [facility] Folate [Mass/Vol] 13.0 ng/mL Normal >4.7 [facility] Comment on above: Order Comment: Speci men Type: BLOOD SPECIMEN Ordering Facility: [facility] Address: [address] [place] [address] Performed By: #### V IT #### [facility] [id number] [address] [place] [address] Elsa-1 extractable nuclear Ab Qn (S)on 05-19-2023 ELSA 1 ANTIBODY QUAL Negative Normal Negative [facility] Comment on above: Order Comment: Nicky crawley Type: BLOOD SPECIMEN Ordering Facility: [facility] Address: [address] [place] [address] Result Comment: Anti -ELSA-1 antibody is used as an aid in diagnosis of polymyositis and dermatomyositis especially with pulmonary involvement. A negative result cannot rule out polymyositis or dermatomyositis. Clinical correlation is required. Test Methodology: Multiplex flow immunoassay. Performed By: #### 5 1775-5, 66871-1, 93179-0, 47973-6, 22974-9, 42609-4, 29052-6, 00584-5 #### [facility] CLIA [id number] [address] [place] [address] [place] Ribonucleoprotein extractabl e nuclear Ab Qn (S)on 05-19-2023 ANTI-PEDIATRIC MEDICAL ASSISTANT QUAL Negative Normal Negative [facility] Comment on above: Order Comment: Nicky crawley Type: BLOOD SPECIMEN Ordering Facility: [facility] Address: [address] [place] [address] Performed By: #### V IT #### [facility] CLIA [id number] [address] [place] [address] RIBOSOMAL PEDIATRIC MEDICAL ASSISTANT QUAL Negative Normal Negative [facility] Comment on above: Order Comment: Nicky crawley Type: BLOOD SPECIMEN [facility]ing Facility: [facility] Address: [address] [place] [address] Result Comment: Anti -Ribosomal RNA (Ribosomal P) antibody is used as an aid in diagnosis of systemic autoimmune diseases especially systemic lupus erythematosus and mixed connective tissue disease. Cross-reactivity with Anti-lobo antibody is not uncommon. Clinical correlation is required. Test Methodology: Multiplex flow immunoassay. Performed By: #### 5 1775-5, 52341-4, 69222-4, 31703-8, 45450-8, 74012-6, 32631-0, 52398-2 #### [facility] CLIA [id number] [address] [place] [address] [place] SCL-70 extractable nuclear I gG IA Qn (S)on 05-19-2023 SCLERODERMA AB QUAL Negative Normal Negative [facility] Comment on above: Order Comment: Nicky crawley Type: BLOOD SPECIMEN Ordering Facility: [facility] Address: [address] [place] [address] Performed By: #### 5 5-5, 80188-5, 44024-0, 66685-5, 90156-0, 65263-8, 65965-5, 49872-5 #### [facility] CLIA [id number] [address] [place] [address] [place] SCLERODERMA IGG AB <0.2 Normal <1.0 [facility] Comment on above: Order Comment: Nicky crawley Type: BLOOD SPECIMEN Ordering Facility: [facility] Address: [address] [place] [address] Result Comment: Scl- 70/Scleroderma antibody test is used as an aid in diagnosis of systemic sclerosis especially the diffuse cutaneous form. A negative result cannot rule out systemic sclerosis. The final interpretation should consider clinical picture and other test results such as anti-centromere antibody. Test Methodology: Multiplex flow immunoassay. Performed By: #### 5 1775-5, 35048-1, 86841-1, 36591-8, 03045-9, 76401-9, 57224-1, 13197-3 #### [facility] CLIA [id number] [address] [place] [address] [place] Sjogrens syndrome-A extracta ble nuclear Ab Qn (S)on 05-19-2023 SSA ANTIBODY QUAL Negative Normal Negative [facility] Comment on above: Order Comment: Speci men Type: BLOOD SPECIMEN [facility]ing Facility: [facility] Address: [address] [place] [address] Performed By: #### 5 1775-5, 64472-5, 55286-6, 51681-3, 59461-4, 20624-3, 79410-7, 77581-6 #### [facility] CLIA [id number] [address] [place], [place] [address] [place] Sjogrens syndrome-B extracta ble nuclear Ab Qn (S)on 05-19-2023 SSB ANTIBODY QUAL Negative Normal Negative [facility] Comment on above: Order Comment: Speci men Type: BLOOD SPECIMEN Ordering Facility: [facility] Address: [address] [place] [address] Performed By: #### 5 1775-5, 30541-7, 56994-1, 62158-8, 51605-2, 42966-5, 13164-4, 92048-6 #### [facility] CLIA [id number] [address] [place] [address] [place] Lobo extractable nuclear Ig G Qn (S)on 05-19-2023 SM ANTIBODY QUAL Negative Normal Negative [facility] Comment on above: Order Comment: Speci men Type: BLOOD SPECIMEN Ordering Facility: [facility] Address: [address] [place] [address] Result Comment: Anti -Sm (Lobo) antibody is used as an aid in diagnosis of systemic lupus erythematosus and its presence is associated with renal disease. A negative result cannot rule out systemic lupus erythematosus. Clinical correlation is required. Test Methodology: Multiplex flow immunoassay. Performed By: #### 5 1775-5, 42616-2, 13983-5, 58419-2, 97730-3, 39280-8, 39911-2, 94857-1 #### [facility] CLIA [id number] [address] [facility] [id number] [address] [place] VITAMIN B6/PYRIDOXINon 05-19 VITAMIN B6 169.1 nmol/L High 20.0-125.0 [facility] Comment on above: Order Comment: Speci men Type: BLOOD SPECIMEN [facility]ing Facility: [facility] Address: [address] [place] [address] Result Comment: INTE RPRETIVE INFORMATION: Vitamin B6 (Pyridoxal 5-Phosphate) Pyridoxal 5'-phosphate measured in a specimen collected following an 8-hour or overnight fast accurately indicates vitamin B6 nutritional status. Non-fasting specimen concentration reflects recent vitamin intake. This test was developed and its performance characteristics determined by [facility]. It has not been cleared or approved by the US Food and Drug Administration. This test was performed in a CLIA certified laboratory and is intended for clinical purposes. Performed By: [facility] [address] [place] [address] Bicycle Repairer: Greg Wong MD, PhD CLIA Number: [id number] Performed By: #### V ITB6 #### [facility] CLIA [id number] [address] [place] [address] [facility] Cobalamin (Vitamin B12) [Mass/Vol] 412 pg/mL Normal 232-1245 [facility] Comment on above: Order Comment: Speci men Type: BLOOD SPECIMEN Ordering Facility: [facility] Address: [address] [place] [address] Performed By: #### V ITB6 #### [facility] CLIA [id number] [address] [place] [address] CNOVon 05-17-2023 CNOV Office Visit (ADRY ) -- LUPE PICKARD ([id number]) 1975 F Date Time Provider Department 05/17/23 2:00 PM STEPHIE BRAMBILA During your visit today, we recorded the following information about you: Pulse Respiration Blood pressure Weight 70/minute 18/minute 144/81 121.8 kg Stephie Brambila MD 05/17/2023 2:50 PM Signed [facility] Date of Service: 05/17/2023 Patient: Lupe Pickard Medical Record: [id number] Last Rheumatology visit: None at [facility] History of Present Illness Lupe Pickard [...] uses heat/ice, massage which helps. She takes Blanco 5mg that does not do much for [...] 10 years. 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 Family History: No known FH of autoimmune [...] mg ta (more content not included)... Normal [facility] C reactive protein [Mass/vol ume] in Serum or Plasma by High sensitivity methodOrdered By: Zoya Aguirre on 03-29-2023 CRP High sensitivity method [Mass/Vol] 4.6 mg/L 0.0-0.9 [facility] Comment on above: Cardiovascular Risk [...] Photometric method (Bld) [Velocity] 14 mm/hr 0-19 [facility] Vitamin B12 ser/plasOrdered By: Zoya Aguirre on 03-29-2023 Cobalamin (Vitamin B12) [Mass/Vol] 464 pg/mL 180-914 [facility] Alanine aminotransferase [En zymatic activity/volume] in Serum or PlasmaOrdered By: Radha Mcintosh on 03-17-2023 ALT [Catalytic activity/Vol] 13 U/L 7-52 [facility] Albumin [Mass/volume] in Ser um or Plasma by Bromocresol green (BCG) dye binding methoOrdered By: Radha Mcintosh on 03-17-2023 Albumin BCG dye [Mass/Vol] 4.2 g/dL 3.5-5.7 [facility] Alkaline phosphatase [Enzyma tic activity/volume] in Serum or PlasmaOrdered By: Radha Mcintosh on 03-17-2023 ALP [Catalytic activity/Vol] 66 U/L 34-104 [facility] Aspartate aminotransferase [ Enzymatic activity/volume] in Serum or PlasmaOrdered By: Radha Mcintosh on 03-17-2023 AST [Catalytic activity/Vol] 11 U/L 13-39 [facility] Basophils Auto (Bld) [#/Vol] Ordered By: Radha Mcintosh on 03-17-2023 Basophils (Bld) [#/Vol] 0.1 10*3/uL 0.0-0.2 [facility] Basophils/100 WBC Auto (Bld) Ordered By: Radha Mcintosh on 03-17-2023 Basophils/100 WBC (Bld) 0.8 % . [facility] Bilirubin.total [Mass/volume ] in Serum or PlasmaOrdered By: Radha Mcintosh on 03-17-2023 Bilirubin [Mass/Vol] 0.3 mg/dL 0.3-1.0 [facility] Calcium [Mass/volume] in Ser um or PlasmaOrdered By: Melissa Singh on 03-17-2023 Calcium [Mass/Vol] 9.0 mg/dL 8.6-10.3 [facility] Carbon dioxide, total [Moles /volume] in Serum or PlasmaOrdered By: Radha Mcintosh on 03-17-2023 CO2 [Moles/Vol] 27.5 mmol/L 21.0-31.0 [facility] Chloride [Moles/volume] in S zakia or PlasmaOrdered By: Radha Mcintosh on 03-17-2023 Chloride [Moles/Vol] 104 mmol/L 98-107 [facility] Creatinine [Mass/volume] in Serum or PlasmaOrdered By: Radha Mcintosh on 03-17-2023 Creatinine [Mass/Vol] 0.54 mg/dL 0.60-1.20 [facility] Eosinophils Auto (Bld) [#/Vo l]Ordered By: Radha Mcintosh on 03-17-2023 Eosinophils (Bld) [#/Vol] 0.1 10*3/uL 0.0-0.45 [facility] Eosinophils/100 WBC Auto (Bl d)Ordered By: Radha Mcintosh on 03-17-2023 Eosinophils/100 WBC (Bld) 1.5 % . [facility] Erythrocyte distribution wid th Auto (RBC) [Ratio]Ordered By: Radha Mcintosh on 03-17-2023 Erythrocyte distribution width (RBC) [Ratio] 15.2 % 11.9-15.3 [facility] Ferritin [Mass/volume] in Se rum or PlasmaOrdered By: Melissa Singh on 03-17-2023 Ferritin [Mass/Vol] 66.4 ng/mL 11.0-306.8 [facility] Folate [Mass/volume] in Seru m or PlasmaOrdered By: Melissa Singh on 03-17-2023 Folate [Mass/Vol] 27.0 ng/mL >5.9 [facility] Comment on above: Folate reference ran ge: >5.9 ng/mlThe WHO technical consultation on folate and vitamin [id number] has determined that folate concentrations lessthan 4 ng/ml are considered deficient. Globulin Calc (S) [Mass/Vol] Ordered By: Radha Mcintosh on 03-17-2023 Globulin (S) [Mass/Vol] 2.8 g/dL [facility] Glucose [Mass/volume] in Ser um [...] Hematocrit (Bld) [Volume fraction] 39.4 % 34.0-46.4 [facility] Hemoglobin [Mass/volume] in BloodOrdered By: Radha Mcintosh on 03-17-2023 Hemoglobin (Bld) [Mass/Vol] 13.1 g/dL 11.8-15.4 [facility] Iron [Mass/volume] in Serum or PlasmaOrdered By: Melissa Singh on 03-17-2023 Iron [Mass/Vol] 40 ug/dL 50-212 [facility] Leukocytes [#/volume] correc emily for nucleated erythrocytes in Blood by Automated counOrdered By: Radha Mcintosh on 03-17-2023 WBC corrected for nucl RBC Auto (Bld) [#/Vol] 8.8 10*3/uL 3.8-11.6 [facility] Lymphocytes Auto (Bld) [#/Vo l]Ordered By: Radha Mcintosh on 03-17-2023 Lymphocytes (Bld) [#/Vol] 2.6 10*3/uL 1.00-4.8 [facility] Lymphocytes/100 WBC Auto (Bl d)Ordered By: Radha Mcintosh on 03-17-2023 Lymphocytes/100 WBC (Bld) 29.4 % . [facility] MCH Auto (RBC) [Entitic mass ]Ordered By: Radha Mcintosh on 03-17-2023 MCH (RBC) [Entitic mass] 29.0 pg 24.7-34.3 [facility] MCHC Auto (RBC) [Mass/Vol]Or dered By: Radha Mcintosh on 03-17-2023 MCHC (RBC) [Mass/Vol] 33.3 g/dL 32.0-35.0 [facility] MCV Auto (RBC) [Entitic vol] Ordered By: Radha Mcintosh on 03-17-2023 MCV (RBC) [Entitic vol] 87.0 fL 80-100 [facility] Monocytes Auto (Bld) [#/Vol] Ordered By: Radha Mcintosh on 03-17-2023 Monocytes (Bld) [#/Vol] 0.5 10*3/uL 0.0-0.8 [facility] Monocytes/100 WBC Auto (Bld) Ordered By: Radha Mcintosh on 03-17-2023 Monocytes/100 WBC (Bld) 5.5 % . [facility] Neutrophils Auto (Bld) [#/Vo l]Ordered By: Radha Mcintosh on 03-17-2023 Neutrophils (Bld) [#/Vol] 5.5 10*3/uL 1.8-7.7 [facility] Neutrophils/100 WBC Auto (Bl d)Ordered By: Radha Mcintosh on 03-17-2023 Neutrophils/100 WBC (Bld) 62.8 % . [facility] No Panel InformationOrdered By: Radha Mcintosh on 03-17-2023 Estimated GFR (CKD-EPI) > 60.0 mL/Min [facility] Creatinine Clearance (Chem N/A [facility] Nucleated erythrocytes [Pres ence] in Blood by Automated countOrdered By: Radha Mcintosh on 03-17-2023 Nucleated RBC Auto Ql (Bld) 0.1 /100{WBC} 0-0.5 [facility] Parathyrin.intact [Mass/volu me] in Serum or PlasmaOrdered By: Melissa Singh on 03-17-2023 Parathyrin.intact [Mass/Vol] 46.2 pg/mL 12-88 [facility] Phosphate [Mass/volume] in S zakia or PlasmaOrdered By: Melissa Singh on 03-17-2023 Phosphate [Mass/Vol] 4.0 mg/dL 3.7-7.2 [facility] Platelet mean volume Auto (B ld) [Entitic vol]Ordered By: Radha Mcintosh on 03-17-2023 Platelet mean volume (Bld) [Entitic vol] 7.6 fL 6.3-10.7 [facility] Platelets Auto (Bld) [#/Vol] Ordered By: Radha Mcintosh on 03-17-2023 Platelets (Bld) [#/Vol] 370 10*3/uL 150-450 [facility] Potassium [Moles/volume] in Serum or PlasmaOrdered By: Radha Mcintosh on 03-17-2023 Potassium [Moles/Vol] 4.1 mmol/L 3.5-5.1 [facility] Protein [Mass/volume] in Ser um or PlasmaOrdered By: Radah Mcintosh on 03-17-2023 Protein [Mass/Vol] 7.0 g/dL 6.4-8.9 [facility] RBC Auto (Bld) [#/Vol]Ordere d By: Radha Mcintosh on 03-17-2023 RBC (Bld) [#/Vol] 4.53 10*6/uL 3.60-5.00 [facility] Serum or plasma 25-hydroxyca lciferol measurement (mass/volume)Ordered By: Radha Mcintosh on 03-17-2023 25-hydroxyvitamin D2 [Mass/Vol] <1.0 ng/mL . [facility] Comment on above: This test was develo ped and its performance characteristicsdetermined by [facility]. It has not been cleared or approvedby the Food and Drug Administration. Serum or plasma 25-hydroxyvi tamin D measurement (mass/volume)Ordered By: Radha Mcintosh on 03-17-2023 25-hydroxyvitamin D [Mass/Vol] 47 ng/mL . [facility] Comment on above: Reference Range:All Ages: Target levels 30 - 100 Serum or plasma albumin/glob ulin mass ratioOrdered By: Radha Mcintosh on 03-17-2023 Albumin/Globulin [Mass ratio] 1.5 {ratio} [facility] Serum or plasma anion gap de terminationOrdered By: Radha Mcintosh on 03-17-2023 Anion gap [Moles/Vol] 11.6 mmol/L 6.0-15.0 [facility] Serum or plasma calcidiol me asurement (mass/volume)Ordered By: Radha Mcintosh on 03-17-2023 25-hydroxyvitamin D3 [Mass/Vol] 47 ng/mL . [facility] Comment on above: This test was develo ped and its performance characteristicsdetermined by [facility]. It has not been cleared or approvedby the Food and Drug Administration.Performed at: [employer] [facility] [address] [id number] Director: Kenji Malone MD, Phone: [phone] Sodium [Moles/volume] in Ser um or PlasmaOrdered By: Radha Mcintosh on 03-17-2023 Sodium [Moles/Vol] 139 mmol/L 136-145 [facility] Urea nitrogen [Mass/volume] in Serum or PlasmaOrdered By: Radha Mcintosh on 03-17-2023 Urea nitrogen [Mass/Vol] 9 mg/dL 7-25 [facility] Vitamin B12 ser/plasOrdered By: Melissa Singh on 03-17-2023 Cobalamin (Vitamin B12) [Mass/Vol] 478 pg/mL 180-914 [facility] WBC Auto (Bld) [#/Vol]Ordere d By: Radha Mcintosh on 03-17-2023 WBC (Bld) [#/Vol] 8.8 10*3/uL 3.8-11.6 [facility] Thyrotropin [Units/volume] i n Serum or PlasmaOrdered By: Kenyetta Dove on 02-17-2023 TSH Qn 0.24 m[IU]/L 0.45-5.33 [facility] Thyroxine (T4) free [Mass/vo lume] [...] aPTT Coag (PPP) [Time] 29.9 s 25.1-36.5 [facility] Basophils Auto (Bld) [#/Vol] Ordered By: Laz Lobo on 01-24-2023 Basophils (Bld) [#/Vol] 0.1 10*3/uL 0.0-0.2 [facility] Basophils/100 WBC Auto (Bld) Ordered By: Laz Lobo on 01-24-2023 Basophils/100 WBC (Bld) 0.7 % . [facility] Bilirubin Test strip Ql (U)O rdered By: Laz Lobo on 01-24-2023 Bilirubin Ql (U) Negative Negative [facility] Calcium [Mass/volume] in Ser um or PlasmaOrdered By: Laz Lobo on 01-24-2023 Calcium [Mass/Vol] 8.7 mg/dL 8.6-10.3 [facility] Carbon dioxide, total [Moles /volume] in Serum or PlasmaOrdered By: Laz Lobo on 01-24-2023 CO2 [Moles/Vol] 29.0 mmol/L 21.0-31.0 [facility] Chloride [Moles/volume] in S zakia or PlasmaOrdered By: Laz Lobo on 01-24-2023 Chloride [Moles/Vol] 105 mmol/L 98-107 [facility] Color Auto (U)Ordered By: Elsa Lobo on 01-24-2023 Color (U) Yellow Yellow [facility] Creatine kinase [Enzymatic a ctivity/volume] in Serum or PlasmaOrdered By: Laz Lobo on 01-24-2023 CK [Catalytic activity/Vol] 55 U/L 30-223 [facility] Creatinine [Mass/volume] in Serum or PlasmaOrdered By: Laz Lobo on 01-24-2023 Creatinine [Mass/Vol] 0.57 mg/dL 0.60-1.20 [facility] Eosinophils Auto (Bld) [#/Vo l]Ordered By: Laz Lobo on 01-24-2023 Eosinophils (Bld) [#/Vol] 0.1 10*3/uL 0.0-0.45 [facility] Eosinophils/100 WBC Auto (Bl d)Ordered By: Laz Lobo on 01-24-2023 Eosinophils/100 WBC (Bld) 1.6 % . [facility] Erythrocyte distribution wid th Auto (RBC) [Ratio]Ordered By: Laz Lobo on 01-24-2023 Erythrocyte distribution width (RBC) [Ratio] 14.5 % 11.9-15.3 [facility] Glucose [Mass/volume] in Ser um [...] Hematocrit (Bld) [Volume fraction] 39.8 % 34.0-46.4 [facility] Hemoglobin [Mass/volume] in BloodOrdered By: Laz Lobo on 01-24-2023 Hemoglobin (Bld) [Mass/Vol] 13.2 g/dL 11.8-15.4 [facility] INR in Platelet poor plasma by Coagulation assayOrdered By: Laz Lobo on 01-24-2023 INR Coag (PPP) [Relative time] 1.0 {INR} [facility] Comment on above: INR Therapeutic [...] on 01-24-2023 Ketones (U) [Mass/Vol] Negative Negative [facility] - CoagulationOrde red By: Laz Lobo on 01-24-2023 PT Coag (PPP) [Time] 11.5 s 9.0-12.9 [facility] Leukocytes [#/volume] correc emily for nucleated erythrocytes in Blood by Automated counOrdered By: Laz Lobo on 01-24-2023 WBC corrected for nucl RBC Auto (Bld) [#/Vol] 7.6 10*3/uL 3.8-11.6 [facility] Lymphocytes Auto (Bld) [#/Vo l]Ordered By: Laz Lobo on 01-24-2023 Lymphocytes (Bld) [#/Vol] 2.0 10*3/uL 1.00-4.8 [facility] Lymphocytes/100 WBC Auto (Bl d)Ordered By: Laz Lobo on 01-24-2023 Lymphocytes/100 WBC (Bld) 26.6 % . [facility] MCH Auto (RBC) [Entitic mass ]Ordered By: Laz Lobo on 01-24-2023 MCH (RBC) [Entitic mass] 28.8 pg 24.7-34.3 [facility] MCHC Auto (RBC) [Mass/Vol]Or dered By: Laz Lobo on 01-24-2023 MCHC (RBC) [Mass/Vol] 33.1 g/dL 32.0-35.0 [facility] MCV Auto (RBC) [Entitic vol] Ordered By: Laz Lobo on 01-24-2023 MCV (RBC) [Entitic vol] 86.8 fL 80-100 [facility] Monocyte distribution width [Entitic volume] in Blood by AutomatedOrdered By: Laz Lobo on 01-24-2023 Monocyte distribution width Auto (Bld) [Entitic vol] 16.72 % 0.00-20.00 [facility] Monocytes Auto (Bld) [#/Vol] Ordered By: Laz Lobo on 01-24-2023 Monocytes (Bld) [#/Vol] 0.2 10*3/uL 0.0-0.8 [facility] Monocytes/100 WBC Auto (Bld) Ordered By: Laz Lobo on 01-24-2023 Monocytes/100 WBC (Bld) 2.7 % . [facility] Natriuretic peptide B [Mass/ Vol]Ordered By: Laz Lobo on 01-24-2023 Natriuretic peptide B (Bld) [Mass/Vol] 37.0 pg/mL 5-100 [facility] Neutrophils Auto (Bld) [#/Vo l]Ordered By: Laz Lobo on 01-24-2023 Neutrophils (Bld) [#/Vol] 5.2 10*3/uL 1.8-7.7 [facility] Neutrophils/100 WBC Auto (Bl d)Ordered By: Laz Lobo on 01-24-2023 Neutrophils/100 WBC (Bld) 68.4 % . [facility] Nitrite Test strip Ql (U)Ord ered By: Laz Lobo on 01-24-2023 Nitrite Ql (U) Negative Negative [facility] No Panel InformationOrdered By: Laz Lobo on 01-24-2023 D-Dimer Quantitative (PE/DVT) < 200 ng/mL 0-243 [facility] Comment on above: The reference [...] conditions. Estimated GFR (CKD-EPI) > 60.0 mL/Min [facility] Creatinine Clearance (Chem 169.33 [facility] Nucleated erythrocytes [Pres ence] in Blood by Automated countOrdered By: Laz Lobo on 01-24-2023 Nucleated RBC Auto Ql (Bld) 0.1 /100{WBC} 0-0.5 [facility] Platelet mean volume Auto (B ld) [Entitic vol]Ordered By: Laz Lobo on 01-24-2023 Platelet mean volume (Bld) [Entitic vol] 8.2 fL 6.3-10.7 [facility] Platelets Auto (Bld) [#/Vol] Ordered By: Laz Lobo on 01-24-2023 Platelets (Bld) [#/Vol] 350 10*3/uL 150-450 [facility] Potassium [Moles/volume] in Serum or PlasmaOrdered By: Laz Lobo on 01-24-2023 Potassium [Moles/Vol] 3.8 mmol/L 3.5-5.1 [facility] Protein Auto test strip (U) [Mass/Vol]Ordered By: Laz Lobo on 01-24-2023 Protein (U) [Mass/Vol] Negative Negative [facility] RBC Auto (Bld) [#/Vol]Ordere d By: Laz Lobo on 01-24-2023 RBC (Bld) [#/Vol] 4.59 10*6/uL 3.60-5.00 [facility] Serum or plasma anion gap de terminationOrdered By: Laz Lobo on 01-24-2023 Anion gap [Moles/Vol] 8.8 mmol/L 6.0-15.0 [facility] Sodium [Moles/volume] in Ser um or PlasmaOrdered By: Laz Lobo on 01-24-2023 Sodium [Moles/Vol] 139 mmol/L 136-145 [facility] Specific gravity Auto test s trip (U) [Rel density]Ordered By: Laz Lobo on 01-24-2023 Specific gravity (U) [Rel density] 1.004 1.001-1.03 0 [facility] Troponin I.cardiac [Mass/vol ume] in Serum or Plasma by Detection limit <= 0.01 ng/Ordered By: Laz Lboo on 01-24-2023 Troponin I.cardiac DL <= 0.01 ng/mL [Mass/Vol] < 2.3 pg/mL 0.0-15.0 [facility] Urea nitrogen [Mass/volume] in Serum or PlasmaOrdered By: Laz Lobo on 01-24-2023 Urea nitrogen [Mass/Vol] 7 mg/dL 7-25 [facility] Urine clarity by refractomet ry automatedOrdered By: Laz Lobo on 01-24-2023 Clarity Refractometry automated (U) Clear Clear [facility] Urine glucose measurement by automated test strip (mass/volume)Ordered By: Laz Lobo on 01-24-2023 Glucose Auto test strip (U) [Mass/Vol] Normal mg/dL Normal [facility] Urine hemoglobin detection b y automated test stripOrdered By: Laz Lobo on 01-24-2023 Hemoglobin Auto test strip Ql (U) Negative Negative [facility] Urine leukocyte esterase det ection by automated test stripOrdered By: Laz Lobo on 01-24-2023 Leukocyte esterase Auto test strip Ql (U) Negative Negative [facility] Urobilinogen Auto test strip (U) [Mass/Vol]Ordered By: Laz Lobo on 01-24-2023 Urobilinogen (U) [Mass/Vol] Normal mg/dL Normal [facility] WBC Auto (Bld) [#/Vol]Ordere d By: Laz Lobo on 01-24-2023 WBC (Bld) [#/Vol] 7.6 10*3/uL 3.8-11.6 [facility] pH Auto test strip (U)Ordere d By: Laz Lobo on 01-24-2023 pH (U) 7.0 [pH] 5.0-9.0 [facility] Calcium [Mass/volume] in Ser um or PlasmaOrdered By: Phillip Benjamin on 01-21-2023 Calcium [Mass/Vol] 9.1 mg/dL 8.6-10.3 [facility] Carbon dioxide, total [Moles /volume] in Serum or PlasmaOrdered By: Phillip Benjamin on 01-21-2023 CO2 [Moles/Vol] 28.2 mmol/L 21.0-31.0 [facility] Chloride [Moles/volume] in S zakia or PlasmaOrdered By: Phillip Benjamin on 01-21-2023 Chloride [Moles/Vol] 105 mmol/L 98-107 [facility] Cholesterol [Mass/volume] in Serum or PlasmaOrdered By: Franklyn Herman on 01-21-2023 Cholesterol [Mass/Vol] 153 mg/dL 140-200 [facility] Comment on above: Chol less than 200 m g/dl low riskChol 201-239 mg/dl borderline riskChol 240 mg/dl and greater high risk Cholesterol in LDL Calc [Mas s/Vol]Ordered By: Franklyn Herman on 01-21-2023 Cholesterol in LDL [Mass/Vol] 60 mg/dL 0-100 [facility] Comment on above: LDL ATP III CLASSIFI CATIONLDL less than 100 mg/dL OptimalLDL 100-129 mg/dL Near or above optimalLDL 130-159 mg/dL Borderline highLDL 160-189 mg/dL HighLDL greater than 189 mg/dL Very high Cholesterol in VLDL Calc [Ma ss/Vol]Ordered By: Franklyn Herman on 01-21-2023 Cholesterol in VLDL [Mass/Vol] 50 mg/dL [facility] Creatinine [Mass/volume] in Serum or PlasmaOrdered By: Phillip Benjamin on 01-21-2023 Creatinine [Mass/Vol] 0.52 mg/dL 0.60-1.20 [facility] Glucose [Mass/volume] in Ser um or [...] 01-21-2023 Estimated GFR (CKD-EPI) > 60.0 mL/Min [facility] Creatinine Clearance (Chem N/A [facility] No Panel Informationon 01-21 > 60[address] [facility] [employer] [address] DO Work Phone: [phone] 10.1\S\10.1 Normal 6.0-15.0 -[facility] [employer] [address] DO Work Phone: [phone] 9.1\S\9.1 Normal 8.6-10.3 [facility] [employer] [address] DO Work Phone: [phone] 28.2\S\28.2 Normal 21.0-31.0 [facility] [employer] [address] DO Work Phone: [phone] 105\S\105 Normal 98-107 -[facility] [employer] [address] DO Work Phone: [phone] 4.3\S\4.3 Normal 3.5-5.1 [facility] [employer] [address] DO Work Phone: [phone] 139\S\139 Normal 136-145 [facility] [employer] [address] DO Work Phone: [phone] 0.52\S\0.52 below low threshold 0.60-1.20 -[facility] [employer] [address] DO Work Phone: [phone] 8\S\8 Normal 7-25 -[facility] [employer] [address] DO Work Phone: [phone] 84\S\84 Normal 70-100 [facility] [employer] [address] DO Work Phone: [phone] Comment on above: Random Glucose Refer ence Range is dependent on time and content of last meal. Glucose of more than 200 mg/dL in a nonstressed, ambulatory subject supports the diagnosis of Diabetes Mellitus. ADA recommended reference range 0.24\S\0.24 below low threshold 0.45-5.33 [facility] 600 DO Work Phone: 41.7\S\41.7 Normal 30-100 [facility] 600 DO Work Phone: Comment on above: VITAMIN D STATUS 25( [place])VITAMIN D RANGE (ng/mL) Deficient <20 Insufficient 20 to <30 Sufficient 30 to 100 Reference: Kirby MF,Adonay NC, Shantelle HOLLOWAY, et al. Evaluation,treatment, and prevention of vitamin D deficiency; an Endocrine Society clinical practice guideline. JCEM. 2010; 96(7):1911-30.PERFORMED BY:[place] [id number] [address] [place], [place] [id number] MEDICAL DIRECTORWENDY CLARK M.D. Potassium [Moles/volume] in Serum or PlasmaOrdered By: Phillip Benjamin on 01-21-2023 Potassium [Moles/Vol] 4.3 mmol/L 3.5-5.1 [facility] Serum or plasma anion gap de terminationOrdered By: Phillip Benjamin on 01-21-2023 Anion gap [Moles/Vol] 10.1 mmol/L 6.0-15.0 [facility] Serum or plasma high density lipoprotein (HDL) cholesterol measurementOrdered By: Franklyn Herman on 01-21-2023 Cholesterol in HDL [Mass/Vol] 42 mg/dL 23-92 [facility] Comment on above: HDL CHOL ATP-III CLA SSIFICATION Cardiovascular RiskHDL > or equal to 60 mg/dL LOWHDL < 40 mg/dL HIGH Serum or plasma total choles terol/high density lipoprotein (HDL) cholesterol mass ratOrdered By: Franklyn Herman on 01-21-2023 Cholesterol.total/Cho lesterol in HDL [Mass ratio] 3.6 {ratio} <5.0 [facility] Sodium [Moles/volume] in Ser um or PlasmaOrdered By: Phillip Benjamin on 01-21-2023 Sodium [Moles/Vol] 139 mmol/L 136-145 [facility] Thyrotropin [Units/volume] i n Serum or PlasmaOrdered By: Phillip Benjamin on 01-21-2023 TSH Qn 0.24 m[IU]/L 0.45-5.33 [facility] Triglyceride [Mass/volume] i n Serum or PlasmaOrdered By: Franklyn Herman on 01-21-2023 Triglyceride [Mass/Vol] 254 mg/dL 0-149 [facility] Comment on above: TRIG ATP III CLASSIF ICATIONTRIG less than 150 mg/dL NormalTRIG 150-199 mg/dL Borderline highTRIG 200-500 mg/dL High TRIG greater than 500 mg/dL Very highStandard traceable to the Center for Disease Conrtrol and Prevention (CDC) test method. Urea nitrogen [Mass/volume] in Serum or PlasmaOrdered By: Phillip Benjamin on 01-21-2023 Urea nitrogen [Mass/Vol] 8 mg/dL 7-25 [facility] Vitamin D+Metabolites [Mass/ volume] in Serum or PlasmaOrdered By: Phillip Benjamin on 01-21-2023 Vitamin D+Metabolites [Mass/Vol] 41.7 ng/mL 30-100 [facility] Comment on above: VITAMIN D [...] aPTT Coag (PPP) [Time] 30.5 s 25.1-36.5 [facility] Basophils Auto (Bld) [#/Vol] Ordered By: Mariya Kumari on 12-30-2022 Basophils (Bld) [#/Vol] 0.1 10*3/uL 0.0-0.2 [facility] Basophils/100 WBC Auto (Bld) Ordered By: Mariya Kumari on 12-30-2022 Basophils/100 WBC (Bld) 1.3 % . [facility] Calcium [Mass/volume] in Ser um or PlasmaOrdered By: Mariya Kumari on 12-30-2022 Calcium [Mass/Vol] 8.4 mg/dL 8.6-10.3 [facility] Carbon dioxide, total [Moles /volume] in Serum or PlasmaOrdered By: Mariya Kumari on 12-30-2022 CO2 [Moles/Vol] 28.0 mmol/L 21.0-31.0 [facility] Chloride [Moles/volume] in S zakia or PlasmaOrdered By: Mariya Kumari on 12-30-2022 Chloride [Moles/Vol] 104 mmol/L 98-107 [facility] Creatinine [Mass/volume] in Serum or PlasmaOrdered By: Mariya Kumari on 12-30-2022 Creatinine [Mass/Vol] 0.56 mg/dL 0.60-1.20 [facility] Eosinophils Auto (Bld) [#/Vo l]Ordered By: Mariya Kumari on 12-30-2022 Eosinophils (Bld) [#/Vol] 0.1 10*3/uL 0.0-0.45 [facility] Eosinophils/100 WBC Auto (Bl d)Ordered By: Mariya Kumari on 12-30-2022 Eosinophils/100 WBC (Bld) 1.5 % . [facility] Erythrocyte distribution wid th Auto (RBC) [Ratio]Ordered By: Mariya Kumari on 12-30-2022 Erythrocyte distribution width (RBC) [Ratio] 14.4 % 11.9-15.3 [facility] Glucose [Mass/volume] in Ser um [...] Hematocrit (Bld) [Volume fraction] 40.1 % 34.0-46.4 [facility] Hemoglobin [Mass/volume] in BloodOrdered By: Mariya Kumari on 12-30-2022 Hemoglobin (Bld) [Mass/Vol] 13.3 g/dL 11.8-15.4 [facility] - CoagulationOrde red By: Mariya Kumari on 12-30-2022 PT Coag (PPP) [Time] 10.9 s 9.0-12.9 [facility] Leukocytes [#/volume] correc emily for nucleated erythrocytes in Blood by Automated counOrdered By: Mariya Kumari on 12-30-2022 WBC corrected for nucl RBC Auto (Bld) [#/Vol] 9.6 10*3/uL 3.8-11.6 [facility] Lymphocytes Auto (Bld) [#/Vo l]Ordered By: Mariya Kumari on 12-30-2022 Lymphocytes (Bld) [#/Vol] 3.2 10*3/uL 1.00-4.8 [facility] Lymphocytes/100 WBC Auto (Bl d)Ordered By: Mariya Kumari on 12-30-2022 Lymphocytes/100 WBC (Bld) 33.6 % . [facility] MCH Auto (RBC) [Entitic mass ]Ordered By: Mariya Kumari on 12-30-2022 MCH (RBC) [Entitic mass] 28.8 pg 24.7-34.3 [facility] MCHC Auto (RBC) [Mass/Vol]Or dered By: Mariya Kumari on 12-30-2022 MCHC (RBC) [Mass/Vol] 33.1 g/dL 32.0-35.0 [facility] MCV Auto (RBC) [Entitic vol] Ordered By: Mariya Kumari on 12-30-2022 MCV (RBC) [Entitic vol] 87.2 fL 80-100 [facility] Magnesium [Mass/volume] in S zakia or PlasmaOrdered By: Mariya Kumari on 12-30-2022 Magnesium [Mass/Vol] 1.9 mg/dL 1.9-2.7 [facility] Monocyte distribution width [Entitic volume] in Blood by AutomatedOrdered By: Mariya Kumari on 12-30-2022 Monocyte distribution width Auto (Bld) [Entitic vol] 16.70 % 0.00-20.00 [facility] Monocytes Auto (Bld) [#/Vol] Ordered By: Mariya Kumari on 12-30-2022 Monocytes (Bld) [#/Vol] 0.4 10*3/uL 0.0-0.8 [facility] Monocytes/100 WBC Auto (Bld) Ordered By: Mariya Kumari on 12-30-2022 Monocytes/100 WBC (Bld) 4.0 % . [facility] Natriuretic peptide B [Mass/ Vol]Ordered By: Mariya Kumari on 12-30-2022 Natriuretic peptide B (Bld) [Mass/Vol] 55.0 pg/mL 5-100 [facility] Neutrophils Auto (Bld) [#/Vo l]Ordered By: Mariya Kumari on 12-30-2022 Neutrophils (Bld) [#/Vol] 5.7 10*3/uL 1.8-7.7 [facility] Neutrophils/100 WBC Auto (Bl d)Ordered By: Mariya Kumari on 12-30-2022 Neutrophils/100 WBC (Bld) 59.6 % . [facility] No Panel InformationOrdered By: Mariya Kumari on 12-30-2022 D-Dimer Quantitative (PE/DVT) 334 ng/mL 0-243 [facility] Comment on above: The reference [...] conditions. Estimated GFR (CKD-EPI) > 60.0 mL/Min [facility] Creatinine Clearance (Chem 171.83 [facility] Nucleated erythrocytes [Pres ence] in Blood by Automated countOrdered By: Mariya Kumari on 12-30-2022 Nucleated RBC Auto Ql (Bld) 0.1 /100{WBC} 0-0.5 [facility] Platelet mean volume Auto (B ld) [Entitic vol]Ordered By: Mariya Kumari on 12-30-2022 Platelet mean volume (Bld) [Entitic vol] 8.6 fL 6.3-10.7 [facility] Platelet poor plasma interna tional normalized ratio (INR) by coagulation assay (relatOrdered By: Mariya Kumari on 12-30-2022 INR Coag (PPP) [Relative time] 0.9 {INR} [facility] Comment on above: INR Therapeutic [...] 12-30-2022 Platelets (Bld) [#/Vol] 348 10*3/uL 150-450 [facility] Potassium [Moles/volume] in Serum or PlasmaOrdered By: Mariya Kumari on 12-30-2022 Potassium [Moles/Vol] 3.7 mmol/L 3.5-5.1 [facility] RBC Auto (Bld) [#/Vol]Ordere d By: Mariya Kumari on 12-30-2022 RBC (Bld) [#/Vol] 4.60 10*6/uL 3.60-5.00 [facility] Serum or plasma anion gap de terminationOrdered By: Mariya Kumari on 12-30-2022 Anion gap [Moles/Vol] 11.7 mmol/L 6.0-15.0 [facility] Sodium [Moles/volume] in Ser um or PlasmaOrdered By: Mariya Kumari on 12-30-2022 Sodium [Moles/Vol] 140 mmol/L 136-145 [facility] Troponin I.cardiac [Mass/vol ume] in Serum or Plasma by Detection limit <= 0.01 ng/Ordered By: Mariya Kumari on 12-30-2022 Troponin I.cardiac DL <= 0.01 ng/mL [Mass/Vol] 2.4 pg/mL 0.0-15.0 [facility] Urea nitrogen [Mass/volume] in Serum or PlasmaOrdered By: Mariya Kumari on 12-30-2022 Urea nitrogen [Mass/Vol] 7 mg/dL 7-25 [facility] WBC Auto (Bld) [#/Vol]Ordere d By: Mariya Kumari on 12-30-2022 WBC (Bld) [#/Vol] 9.6 10*3/uL 3.8-11.6 [facility] Activated partial thrombopla stin time (aPTT) in platelet poor plasma by coagulation aOrdered By: Josué Napier on 12-20-2022 aPTT Coag (PPP) [Time] 31.8 s 25.1-36.5 [facility] Alanine aminotransferase [En zymatic activity/volume] in Serum or PlasmaOrdered By: Josué Napier on 12-20-2022 ALT [Catalytic activity/Vol] 12 U/L 752 [facility] Albumin [Mass/volume] in Ser um or Plasma by Bromocresol green (BCG) dye binding methoOrdered By: Josué Napier on 12-20-2022 Albumin BCG dye [Mass/Vol] 4.4 g/dL 3.5-5.7 [facility] Alkaline phosphatase [Enzyma tic activity/volume] in Serum or PlasmaOrdered By: Josué Napier on 12-20-2022 ALP [Catalytic activity/Vol] 49 U/L 34-104 [facility] Amphetamine Screen Ql (U)Ord ered By: Josué Napier on 12-20-2022 Amphetamines Ql (U) Negative Negative [facility] Aspartate aminotransferase [ Enzymatic activity/volume] in Serum or PlasmaOrdered By: Josué Napier on 12-20-2022 AST [Catalytic activity/Vol] 11 U/L 13-39 [facility] Barbiturates [Presence] in U rine by Screen methodOrdered By: Josué Napier on 12-20-2022 Barbiturates Screen Ql (U) Negative Negative [facility] Basophils Auto (Bld) [#/Vol] Ordered By: Josué Napier on 12-20-2022 Basophils (Bld) [#/Vol] 0.0 10*3/uL 0.0-0.2 [facility] Basophils/100 WBC Auto (Bld) Ordered By: Josué Napier on 12-20-2022 Basophils/100 WBC (Bld) 0.2 % . [facility] Benzodiazepines Screen Ql (U )Ordered By: Josué Napier on 12-20-2022 Benzodiazepines Ql (U) Negative Negative [facility] Benzoylecgonine [Presence] i n Urine by Screen methodOrdered By: Josué Napier on 12-20-2022 Benzoylecgonine Screen Ql (U) Negative Negative [facility] Bilirubin Test strip Ql (U)O rdered By: Josué Napier on 12-20-2022 Bilirubin Ql (U) Negative Negative [facility] Bilirubin.total [Mass/volume ] in Serum or PlasmaOrdered By: Josué Napier on 12-20-2022 Bilirubin [Mass/Vol] 0.3 mg/dL 0.3-1.0 [facility] Calcium [Mass/volume] in Ser um or PlasmaOrdered By: Josué Napier on 12-20-2022 Calcium [Mass/Vol] 9.2 mg/dL 8.6-10.3 [facility] Cannabinoids [Presence] in U rine by Screen methodOrdered By: Josué Napier on 12-20-2022 Cannabinoids Screen Ql (U) Negative Negative [facility] Comment on above: These are unconfirme d results and should not be used for legal purposes. Drug Cut-Off Concentration: AMPH 1000 ng/mL MEKHI 200 ng/mL NURY 200 ng/mL COCM 300 ng/mL OP 300 ng/mL PCP 25 ng/mL THC 20 ng/mL Carbon dioxide, total [Moles /volume] in Serum or PlasmaOrdered By: Josué Napier on 12-20-2022 CO2 [Moles/Vol] 28.6 mmol/L 21.0-31.0 [facility] Chloride [Moles/volume] in S zakia or PlasmaOrdered By: Josué Napier on 12-20-2022 Chloride [Moles/Vol] 104 mmol/L 98-107 [facility] Color Auto (U)Ordered By: Randolph Napier on 12-20-2022 Color (U) Yellow Yellow [facility] Creatine kinase [Enzymatic a ctivity/volume] in Serum or PlasmaOrdered By: Josué Napier on 12-20-2022 CK [Catalytic activity/Vol] 46 U/L 30-223 [facility] Creatinine [Mass/volume] in Serum or PlasmaOrdered By: Josué Napier on 12-20-2022 Creatinine [Mass/Vol] 0.57 mg/dL 0.60-1.20 [facility] Eosinophils Auto (Bld) [#/Vo l]Ordered By: Josué Napier on 12-20-2022 Eosinophils (Bld) [#/Vol] 0.1 10*3/uL 0.0-0.45 [facility] Eosinophils/100 WBC Auto (Bl d)Ordered By: Josué Napier on 12-20-2022 Eosinophils/100 WBC (Bld) 1.1 % . [facility] Erythrocyte distribution wid th Auto (RBC) [Ratio]Ordered By: Josué Napier on 12-20-2022 Erythrocyte distribution width (RBC) [Ratio] 14.4 % 11.9-15.3 [facility] Globulin Calc (S) [Mass/Vol] Ordered By: Josué Napier on 12-20-2022 Globulin (S) [Mass/Vol] 3.1 g/dL [facility] Glucose [Mass/volume] in Ser um [...] Hematocrit (Bld) [Volume fraction] 40.7 % 34.0-46.4 [facility] Hemoglobin [Mass/volume] in BloodOrdered By: Josué Napier on 12-20-2022 Hemoglobin (Bld) [Mass/Vol] 13.7 g/dL 11.8-15.4 [facility] Ketones Auto test strip (U) [Mass/Vol]Ordered By: Josué Napier on 12-20-2022 Ketones (U) [Mass/Vol] Negative Negative [facility] - CoagulationOrde red By: Josué Napier on 12-20-2022 PT Coag (PPP) [Time] 11.8 s 9.0-12.9 [facility] Leukocytes [#/volume] correc emily for nucleated erythrocytes in Blood by Automated counOrdered By: Josué Napier on 12-20-2022 WBC corrected for nucl RBC Auto (Bld) [#/Vol] 10.0 10*3/uL 3.8-11.6 [facility] Lymphocytes Auto (Bld) [#/Vo l]Ordered By: Josué Napier on 12-20-2022 Lymphocytes (Bld) [#/Vol] 2.7 10*3/uL 1.00-4.8 [facility] Lymphocytes/100 WBC Auto (Bl d)Ordered By: Josué Napier on 12-20-2022 Lymphocytes/100 WBC (Bld) 26.9 % . [facility] MCH Auto (RBC) [Entitic mass ]Ordered By: Josué Npaier on 12-20-2022 MCH (RBC) [Entitic mass] 29.2 pg 24.7-34.3 [facility] MCHC Auto (RBC) [Mass/Vol]Or dered By: Josué Napier on 12-20-2022 MCHC (RBC) [Mass/Vol] 33.6 g/dL 32.0-35.0 [facility] MCV Auto (RBC) [Entitic vol] Ordered By: Josué Napier on 12-20-2022 MCV (RBC) [Entitic vol] 86.9 fL 80-100 [facility] Magnesium [Mass/volume] in S zakia or PlasmaOrdered By: Josué Napier on 12-20-2022 Magnesium [Mass/Vol] 1.8 mg/dL 1.9-2.7 [facility] Monocyte distribution width [Entitic volume] in Blood by AutomatedOrdered By: Josué Napier on 12-20-2022 Monocyte distribution width Auto (Bld) [Entitic vol] 18.26 % 0.00-20.00 [facility] Monocytes Auto (Bld) [#/Vol] Ordered By: Josué Napier on 12-20-2022 Monocytes (Bld) [#/Vol] 0.4 10*3/uL 0.0-0.8 [facility] Monocytes/100 WBC Auto (Bld) Ordered By: Josué Napier on 12-20-2022 Monocytes/100 WBC (Bld) 4.1 % . [facility] Neutrophils Auto (Bld) [#/Vo l]Ordered By: Josué Napier on 12-20-2022 Neutrophils (Bld) [#/Vol] 6.8 10*3/uL 1.8-7.7 [facility] Neutrophils/100 WBC Auto (Bl d)Ordered By: Josué Napier on 12-20-2022 Neutrophils/100 WBC (Bld) 67.7 % . [facility] Nitrite Test strip Ql (U)Ord ered By: Josué Napier on 12-20-2022 Nitrite Ql (U) Negative Negative [facility] No Panel InformationOrdered By: Josué Napier on 12-20-2022 Estimated GFR (CKD-EPI) > 60.0 mL/Min [facility] Creatinine Clearance (Chem 168.35 [facility] Nucleated erythrocytes [Pres ence] in Blood by Automated countOrdered By: Josué Napier on 12-20-2022 Nucleated RBC Auto Ql (Bld) 0.1 /100{WBC} 0-0.5 [facility] Opiates [Presence] in Urine by Screen methodOrdered By: Josué Napier on 12-20-2022 Opiates Screen Ql (U) Negative Negative [facility] Phencyclidine Screen Ql (U)O rdered By: Josué Napier on 12-20-2022 Phencyclidine Ql (U) Negative Negative [facility] Platelet mean volume Auto (B ld) [Entitic vol]Ordered By: Josué Napier on 12-20-2022 Platelet mean volume (Bld) [Entitic vol] 8.3 fL 6.3-10.7 [facility] Platelet poor plasma interna tional normalized ratio (INR) by coagulation assay (relatOrdered By: Josué Napier on 12-20-2022 INR Coag (PPP) [Relative time] 1.0 {INR} [facility] Comment on above: INR Therapeutic [...] 12-20-2022 Platelets (Bld) [#/Vol] 349 10*3/uL 150-450 [facility] Potassium [Moles/volume] in Serum or PlasmaOrdered By: Josué Napier on 12-20-2022 Potassium [Moles/Vol] 3.9 mmol/L 3.5-5.1 [facility] Protein Auto test strip (U) [Mass/Vol]Ordered By: Josué Napier on 12-20-2022 Protein (U) [Mass/Vol] Negative Negative [facility] Protein [Mass/volume] in Ser um or PlasmaOrdered By: Josué Napier on 12-20-2022 Protein [Mass/Vol] 7.5 g/dL 6.4-8.9 [facility] RBC Auto (Bld) [#/Vol]Ordere d By: Josué Napier on 12-20-2022 RBC (Bld) [#/Vol] 4.68 10*6/uL 3.60-5.00 [facility] Serum or plasma albumin/glob ulin mass ratioOrdered By: Josué Napier on 12-20-2022 Albumin/Globulin [Mass ratio] 1.4 {ratio} [facility] Serum or plasma anion gap de terminationOrdered By: Josué Napier on 12-20-2022 Anion gap [Moles/Vol] 10.3 mmol/L 6.0-15.0 [facility] Sodium [Moles/volume] in Ser um or PlasmaOrdered By: Josué Napier on 12-20-2022 Sodium [Moles/Vol] 139 mmol/L 136-145 [facility] Specific gravity Auto test s trip (U) [Rel density]Ordered By: Josué Napier on 12-20-2022 Specific gravity (U) [Rel density] 1.005 1.001-1.03 0 [facility] Thyrotropin [Units/volume] i n Serum or PlasmaOrdered By: Josué Napier on 12-20-2022 TSH Qn 0.23 m[IU]/L 0.45-5.33 [facility] Thyroxine (T4) [Mass/volume] in Serum or PlasmaOrdered By: Josué Napier on 12-20-2022 T4 [Mass/Vol] 9.01 ug/dL 5.39-11.82 [facility] Troponin I.cardiac [Mass/vol ume] in Serum or Plasma by Detection limit <= 0.01 ng/Ordered By: Josué Napier on 12-20-2022 Troponin I.cardiac DL <= 0.01 ng/mL [Mass/Vol] < 2.3 pg/mL 0.0-15.0 [facility] Urea nitrogen [Mass/volume] in Serum or PlasmaOrdered By: Josué Napier on 12-20-2022 Urea nitrogen [Mass/Vol] 9 mg/dL 7-25 [facility] Urine clarity by refractomet ry automatedOrdered By: Josué Napier on 12-20-2022 Clarity Refractometry automated (U) Clear Clear [facility] Urine glucose measurement by automated test strip (mass/volume)Ordered By: Josué Napier on 12-20-2022 Glucose Auto test strip (U) [Mass/Vol] Normal mg/dL Normal [facility] Urine hemoglobin detection b y automated test stripOrdered By: Josué Napier on 12-20-2022 Hemoglobin Auto test strip Ql (U) Negative Negative [facility] Urine leukocyte esterase det ection by automated test stripOrdered By: Josué Napier on 12-20-2022 Leukocyte esterase Auto test strip Ql (U) Negative Negative [facility] Urobilinogen Auto test strip (U) [Mass/Vol]Ordered By: Josué Napier on 12-20-2022 Urobilinogen (U) [Mass/Vol] Normal mg/dL Normal [facility] WBC Auto (Bld) [#/Vol]Ordere d By: Joséu Napier on 12-20-2022 WBC (Bld) [#/Vol] 10.0 10*3/uL 3.8-11.6 [facility] pH Auto test strip (U)Ordere d By: Josué Napier on 12-20-2022 pH (U) 6.5 [pH] 5.0-9.0 [facility] Office Visit (Cardiology)on 12-08-2022 Follow-up [...] Metabolic Panel; Status:Active - Retrospective Authorization; Requested for:[id number]; TSH - Thyroid Stimulating Hormone, Serum; Status:Active - Retrospective Authorization; Requested for:[id number]; Vitamin D 25-Hydroxy; Status:Need Information - ABN Disposition,Retrospective Authorization; Requested for:[id number]; Morbid obesity with BMI of 40.0-44.9, adult Healthy Weight Tips; Status:Complete - Retrospective Authorization; Done: [id number] Some eating tips that can help you lose weight.; Status:Complete - Retrospective Authorization; Done: [id number] Palpitations Renew: Metoprolol Succinate ER 50 MG Oral Tablet Extended Release 24 Hour; TAKE 1 TABLET BY MOUTH EVERY DAY PVC (premature ventricular contraction) IO EKG Electrocardiogram- 12 Lead; Status:Complete; Done: [id number] SocHx: Former smoker Tobacco Use Screening; Status:Complete; Done: [id number] Patient Instructions Please bring all medicines, vitamins, [...] have nerve ablations in back with the [facility]. The provider reviewed the following [...] TWICE A DAY Vitamin D3 1.25 MG (51098 UT) Oral CapsuleTAKE 1 CAPSULE Daily Allergies Medication No Known Drug Allergies Recorded By: Suzie Turner; 10/21/2017 2:10:00 PM Social History Problems Daily caf (more content not included)... Normal [facility] Tobacco Screening.on 023 Tobacco use status CPHS b) No [facility] y 250 DO Work Phone: Echocardiogramon 11-25-[address], [address] [place] [address] TRANSTHORACIC ECHOCARDIOGRAM REPORT Patient Name: LUPE Horne Physician: [id number] Moretnsen MD Study Date: 11/25/2022 Referring Physician: PHILLIP BENJAMIN MRN/PID: [id number] PCP: Donya Billings MD Accession/Order#: [id number] Department Location: [facility] Date of : 1975 Fellow: Gender: F Nurse: Admit Date: Public Information Coordinator: Shila Tripp RUST, T Height: 170.18 cm CC Report to: Weight: 121.56 kg Study Type: Echocardiogram BSA: 2.29 m2 Blood Pressure: 120 /82 mmHg Diagnosis/ICD: I47.1-Supraventricular tachycardia; I49.3-Ventricular premature depolarization; R00.2-Palpitations Indication: Chest Pain, Former Smoker, Morbid Obesity, Hypothyroid, Anxiety, Shortness of Breath, Marijuana Use Procedure/CPT: Echo Complete w Full Doppler-[id number] Study Detail: The following Echo studies were [...] 0.8 m/s (0.6-0.9m/s) PV Max P.8 mmHg [id number] Azam Mortensen MD Electronically signed on 11/25/2022 at 5:29:01 PM Final Normal [facility] Troponin I.cardiac [Mass/vol ume] in Serum or Plasma by Detection limit <= 0.01 ng/Ordered By: Ygoi Michaels on 11-06-2022 Troponin I.cardiac DL <= 0.01 ng/mL [Mass/Vol] < 2.3 pg/mL 0.0-15.0 [facility] Activated partial thrombopla stin time (aPTT) in platelet poor plasma by coagulation aOrdered By: Yogi Michaels on 11-05-2022 aPTT Coag (PPP) [Time] 31.7 s 25.1-36.5 [facility] Basophils Auto (Bld) [#/Vol] Ordered By: Yogi Michaels on 11-05-2022 Basophils (Bld) [#/Vol] 0.1 10*3/uL 0.0-0.2 [facility] Basophils/100 WBC Auto (Bld) Ordered By: Yogi Michaels on 11-05-2022 Basophils/100 WBC (Bld) 0.8 % . [facility] Calcium [Mass/volume] in Ser um or PlasmaOrdered By: Yogi Michaels on 11-05-2022 Calcium [Mass/Vol] 8.6 mg/dL 8.6-10.3 [facility] Carbon dioxide, total [Moles /volume] in Serum or PlasmaOrdered By: Yogi Michaels on 11-05-2022 CO2 [Moles/Vol] 26.4 mmol/L 21.0-31.0 [facility] Chloride [Moles/volume] in S zakia or PlasmaOrdered By: Yogi Michaels on 11-05-2022 Chloride [Moles/Vol] 105 mmol/L 98-107 [facility] Creatinine [Mass/volume] in Serum or PlasmaOrdered By: Yogi Michaels on 11-05-2022 Creatinine [Mass/Vol] 0.58 mg/dL 0.60-1.20 [facility] Eosinophils Auto (Bld) [#/Vo l]Ordered By: Yogi Michaels on 11-05-2022 Eosinophils (Bld) [#/Vol] 0.1 10*3/uL 0.0-0.45 [facility] Eosinophils/100 WBC Auto (Bl d)Ordered By: Yogi Michaels on 11-05-2022 Eosinophils/100 WBC (Bld) 0.9 % . [facility] Erythrocyte distribution wid th Auto (RBC) [Ratio]Ordered By: Yogi Michaels on 11-05-2022 Erythrocyte distribution width (RBC) [Ratio] 14.2 % 11.9-15.3 [facility] Glucose [Mass/volume] in Ser um [...] Hematocrit (Bld) [Volume fraction] 39.8 % 34.0-46.4 [facility] Hemoglobin [Mass/volume] in BloodOrdered By: Yogi Michaels on 11-05-2022 Hemoglobin (Bld) [Mass/Vol] 13.8 g/dL 11.8-15.4 [facility] Laboratory - CoagulationOrde red By: Yogi Michaels on 11-05-2022 PT Coag (PPP) [Time] 12.6 s 9.0-12.9 [facility] Leukocytes [#/volume] correc emily for nucleated erythrocytes in Blood by Automated counOrdered By: Yogi Michaels on 11-05-2022 WBC corrected for nucl RBC Auto (Bld) [#/Vol] 11.9 10*3/uL 3.8-11.6 [facility] Lymphocytes Auto (Bld) [#/Vo l]Ordered By: Yogi Michaels on 11-05-2022 Lymphocytes (Bld) [#/Vol] 2.4 10*3/uL 1.00-4.8 [facility] Lymphocytes/100 WBC Auto (Bl d)Ordered By: Yogi Michaels on 11-05-2022 Lymphocytes/100 WBC (Bld) 20.0 % . [facility] MCH Auto (RBC) [Entitic mass ]Ordered By: Yogi Michaels on 11-05-2022 MCH (RBC) [Entitic mass] 30.3 pg 24.7-34.3 [facility] MCHC Auto (RBC) [Mass/Vol]Or dered By: Yogi Michaels on 11-05-2022 MCHC (RBC) [Mass/Vol] 34.7 g/dL 32.0-35.0 [facility] MCV Auto (RBC) [Entitic vol] Ordered By: Yogi Michaels on 11-05-2022 MCV (RBC) [Entitic vol] 87.5 fL 80-100 [facility] Magnesium [Mass/volume] in S zakia or PlasmaOrdered By: Yogi Michaels on 11-05-2022 Magnesium [Mass/Vol] 1.5 mg/dL 1.9-2.7 [facility] Monocyte distribution width [Entitic volume] in Blood by AutomatedOrdered By: Yogi Michaels on 11-05-2022 Monocyte distribution width Auto (Bld) [Entitic vol] 17.86 % 0.00-20.00 [facility] Monocytes Auto (Bld) [#/Vol] Ordered By: Yogi Michaels on 11-05-2022 Monocytes (Bld) [#/Vol] 0.7 10*3/uL 0.0-0.8 [facility] Monocytes/100 WBC Auto (Bld) Ordered By: Yogi Michaels on 11-05-2022 Monocytes/100 WBC (Bld) 5.8 % . [facility] Natriuretic peptide B [Mass/ Vol]Ordered By: Yogi Michaels on 11-05-2022 Natriuretic peptide B (Bld) [Mass/Vol] 16.0 pg/mL 5-100 [facility] Neutrophils Auto (Bld) [#/Vo l]Ordered By: Yogi Michaels on 11-05-2022 Neutrophils (Bld) [#/Vol] 8.6 10*3/uL 1.8-7.7 [facility] Neutrophils/100 WBC Auto (Bl d)Ordered By: Yogi Michaels on 11-05-2022 Neutrophils/100 WBC (Bld) 72.5 % . [facility] No Panel InformationOrdered By: Yogi Michaels on 11-05-2022 Estimated GFR (CKD-EPI) > 60.0 mL/Min [facility] Creatinine Clearance (Chem 166.57 [facility] Nucleated erythrocytes [Pres ence] in Blood by Automated countOrdered By: Yogi Michaels on 11-05-2022 Nucleated RBC Auto Ql (Bld) 0.1 /100{WBC} 0-0.5 [facility] Phosphate [Mass/volume] in S zakia or PlasmaOrdered By: Yogi Michaels on 11-05-2022 Phosphate [Mass/Vol] 3.9 mg/dL 3.7-7.2 [facility] Platelet mean volume Auto (B ld) [Entitic vol]Ordered By: Yogi Michaels on 11-05-2022 Platelet mean volume (Bld) [Entitic vol] 8.1 fL 6.3-10.7 [facility] Platelet poor plasma interna tional normalized ratio (INR) by coagulation assay (relatOrdered By: Yogi Michaels on 11-05-2022 INR Coag (PPP) [Relative time] 1.1 {INR} [facility] Comment on above: INR Therapeutic [...] 11-05-2022 Platelets (Bld) [#/Vol] 336 10*3/uL 150-450 [facility] Potassium [Moles/volume] in Serum or PlasmaOrdered By: Yogi Michaels on 11-05-2022 Potassium [Moles/Vol] 3.5 mmol/L 3.5-5.1 [facility] RBC Auto (Bld) [#/Vol]Ordere d By: Yogi Michaels on 11-05-2022 RBC (Bld) [#/Vol] 4.55 10*6/uL 3.60-5.00 [facility] Serum or plasma anion gap de terminationOrdered By: Yogi Michaels on 11-05-2022 Anion gap [Moles/Vol] 11.1 mmol/L 6.0-15.0 [facility] Sodium [Moles/volume] in Ser um or PlasmaOrdered By: Yogi Michaels on 11-05-2022 Sodium [Moles/Vol] 139 mmol/L 136-145 [facility] Urea nitrogen [Mass/volume] in Serum or PlasmaOrdered By: Yogi Michaels on 11-05-2022 Urea nitrogen [Mass/Vol] 10 mg/dL 12-21 [facility] WBC Auto (Bld) [#/Vol]Ordere d By: Yogi Michaels on 11-05-2022 WBC (Bld) [#/Vol] 11.9 10*3/uL 3.8-11.6 [facility] Cardiac Stress Teston 2022 Cardiac Stress Test [facility] [address] [place] [address], [address] [place] [address] Exercise Stress Test Patient Name: LUPE PICKARD Ordering Physician: [id number] Phillip Benjamin MD Study Date: 10/28/2022 Reading Physician: [id number] Ric Asher MD, [facility] MRN/PID: [id number] Supervising Physician: [id number] Asher MD, [facility] Accession/Order#: [id number] Referring Physician: PHILLIP BENJAMIN Date of : 1975 PCP: Donya Billings MD Gender: F Fellow: Height: 170.18 cm Nurse: Randall Hinton RN Weight: 121.56 kg Public Information Coordinator: NA BSA: 2.29 m2 Technologist: BMI: 41.98 Additional Staff: kg/m2 Age: 47 years cc report to: Patient Location: report to: [id number] Phillip Benjamin MD Study Type: Cardiac Stress Test Diagnosis/ICD: I47.1-Supraventricular tachycardia; R00.2-Palpitations; I49.3-Ventricular premature depolarization Indication: ATACH Procedure/CPT: Stress Test Interpretation-[id number]; Stress Test Supervision-[id number] Falls Risk: Low: Patient has low risk [...] favorable. 2. Adequate level of stress achieved. [id number] Ric Asher MD, FACC Electronically signed on 10/29/2022 at 1:49:55 PM Final Normal [facility] Cardiac Stress Test [facility] [address] [place] Work Phone: Office [...] lose weight.; Status:Complete - Retrospective Authorization; Done: [id number] SocHx: Former smoker Tobacco Use Screening; Status:Complete; Done: [id number] Patient Instructions Please bring all medicines, vitamins, and herbal supplements with you when you come to the office. Prescriptions will not be filled unless you are compliant with your follow up appointments or have a follow up appointment scheduled as per instruction of your physician. Refills should be requested at the time of your visit. Follow up after testing completed Chief Complaint 09-22-22. LPUE PICKARD is being seen for follow-up of [...] DAILY. Melato (more content not included)... Normal [facility] Tobacco Screening.on 023 Tobacco use status CPHS b) No [facility] [address] [place] Work Phone: Progress Noteson 09-02-2022 [employer] Aut[employer] Interface Message Text CONSULTED BY: CC: [...] she can follow up PRN. Normal [facility] [employer] Authentication Interface Message Text Patient was identified by name and date of . Susan Lomeli RN Patient at risk for falls:No Falls Risk protocol implemented: No Normal [facility] Alanine aminotransferase [En zymatic activity/volume] in Serum or PlasmaOrdered By: Kenyetta Dove on 08-10-2022 ALT [Catalytic activity/Vol] 14 U/L 7-52 [facility] Albumin [Mass/volume] in Ser um or Plasma by Bromocresol green (BCG) dye binding methoOrdered By: Kenyetta Dove on 08-10-2022 Albumin BCG dye [Mass/Vol] 4.0 g/dL 3.5-5.7 [facility] Alkaline phosphatase [Enzyma tic activity/volume] in Serum or PlasmaOrdered By: Kenyetta Dove on 08-10-2022 ALP [Catalytic activity/Vol] 43 U/L 34-104 [facility] Aspartate aminotransferase [ Enzymatic activity/volume] in Serum or PlasmaOrdered By: Kenyetta Dove on 08-10-2022 AST [Catalytic activity/Vol] 10 U/L 13-39 [facility] Basophils Auto (Bld) [#/Vol] Ordered By: Kenyetta Dove on 08-10-2022 Basophils (Bld) [#/Vol] 0.0 10*3/uL 0.0-0.2 [facility] Basophils/100 WBC Auto (Bld) Ordered By: Kenyetta Dove on 08-10-2022 Basophils/100 WBC (Bld) 0.5 % . [facility] Bilirubin.total [Mass/volume ] in Serum or PlasmaOrdered By: Kenyetta Dove 08-10-2022 Bilirubin [Mass/Vol] 0.6 mg/dL 0.3-1.0 [facility] Calcium [Mass/volume] in Ser um or PlasmaOrdered By: Kenyetta Dove 08-10-2022 Calcium [Mass/Vol] 9.0 mg/dL 8.6-10.3 [facility] Carbon dioxide, total [Moles /volume] in Serum or PlasmaOrdered By: Kenyetta Dove 08-10-2022 CO2 [Moles/Vol] 29.0 mmol/L 21.0-31.0 [facility] Chloride [Moles/volume] in S zakia or PlasmaOrdered By: Kenyetta Dove 08-10-2022 Chloride [Moles/Vol] 104 mmol/L 98-107 [facility] Cholesterol [Mass/volume] in Serum or PlasmaOrdered By: Kenyetta Dove on 08-10-2022 Cholesterol [Mass/Vol] 145 mg/dL 140-200 [facility] Comment on above: Chol less than 200 m g/dl low riskChol 201-239 mg/dl borderline riskChol 240 mg/dl and greater high risk Cholesterol in LDL Calc [Mas s/Vol]Ordered By: Kenyetta Dove on 08-10-2022 Cholesterol in LDL [Mass/Vol] 64 mg/dL 0-100 [facility] Comment on above: LDL ATP III CLASSIFI CATIONLDL less than 100 mg/dL OptimalLDL 100-129 mg/dL Near or above optimalLDL 130-159 mg/dL Borderline highLDL 160-189 mg/dL HighLDL greater than 189 mg/dL Very high Cholesterol in VLDL Calc [Ma ss/Vol]Ordered By: Kenyetta Dove on 08-10-2022 Cholesterol in VLDL [Mass/Vol] 27 mg/dL [facility] Creatinine [Mass/volume] in Serum or PlasmaOrdered By: Kenyetta Dove on 08-10-2022 Creatinine [Mass/Vol] 0.52 mg/dL 0.60-1.20 [facility] Eosinophils Auto (Bld) [#/Vo l]Ordered By: Kenyetta Dove on 08-10-2022 Eosinophils (Bld) [#/Vol] 0.1 10*3/uL 0.0-0.45 [facility] Eosinophils/100 WBC Auto (Bl d)Ordered By: Kenyetta Dove on 08-10-2022 Eosinophils/100 WBC (Bld) 1.3 % . [facility] Erythrocyte distribution wid th Auto (RBC) [Ratio]Ordered By: Kenyetta Dove on 08-10-2022 Erythrocyte distribution width (RBC) [Ratio] 14.6 % 11.9-15.3 [facility] Follitropin [Units/volume] i n Serum or PlasmaOrdered By: Kenyetta Dove on 08-10-2022 Follitropin Qn 5.9 m[IU]/mL [facility] Comment on above: FEMALE NORMALS (GERHARD ENOPAUSE) MID-FOLLICULAR PHASE: 3.9-8.8 mIU/mL MID-CYCLE PEAK: 4.5-22.5 mIU/mL MID-LUTEAL PHASE: 1.8-5.1 mIU/mLFEMALE NORMALS (POSTMENOPAUSE): 16.7-113.6 mIU/mLMALE NORMALS: 1.3-19.3 mIU/mL Globulin Calc (S) [Mass/Vol] Ordered By: Kenyetta Dove on 08-10-2022 Globulin (S) [Mass/Vol] 2.3 g/dL [facility] Glucose [Mass/volume] in Ser um [...] from glycated hemoglobin (Bld) [Mass/Vol] 117 mg/dL [facility] Hematocrit Auto (Bld) [Volum e fraction]Ordered By: Kenyetta Dove on 08-10-2022 Hematocrit (Bld) [Volume fraction] 37.0 % 34.0-46.4 [facility] Hemoglobin A1c percentageOrd ered By: Kenyetta Dove on 08-10-2022 HbA1c (Bld) [Mass fraction] 5.7 % 4.3-5.6 [facility] Comment on above: Increased risk for d iabetes: 5.7 - 6.4diabetes: >6.4glycemic control for adults with diabetes: <7.0 Hemoglobin [Mass/volume] in BloodOrdered By: Kenyetta Dove on 08-10-2022 Hemoglobin (Bld) [Mass/Vol] 12.5 g/dL 11.8-15.4 [facility] Laboratory - Chemistry and C hemistry - challengeOrdered By: Kenyetta Dove on 08-10-2022 GFR/1.73 sq M.predicted MDRD (S/P/Bld) [Vol rate/Area] mL/min/{1.73_m2} [facility] Leukocytes [#/volume] correc emily for nucleated erythrocytes in Blood by Automated counOrdered By: Kenyetta Dove on 08-10-2022 WBC corrected for nucl RBC Auto (Bld) [#/Vol] 8.3 10*3/uL 3.8-11.6 [facility] Lymphocytes Auto (Bld) [#/Vo l]Ordered By: Kenyetta Dove on 08-10-2022 Lymphocytes (Bld) [#/Vol] 2.3 10*3/uL 1.00-4.8 [facility] Lymphocytes/100 WBC Auto (Bl d)Ordered By: Kenyetta Dove on 08-10-2022 Lymphocytes/100 WBC (Bld) 28.1 % . [facility] MCH Auto (RBC) [Entitic mass ]Ordered By: Kenyetta Dove on 08-10-2022 MCH (RBC) [Entitic mass] 29.7 pg 24.7-34.3 [facility] MCHC Auto (RBC) [Mass/Vol]Or dered By: Kenyetta Dove on 08-10-2022 MCHC (RBC) [Mass/Vol] 33.7 g/dL 32.0-35.0 [facility] MCV Auto (RBC) [Entitic vol] Ordered By: Kenyetta Dove on 08-10-2022 MCV (RBC) [Entitic vol] 88.0 fL 80-100 [facility] Microalbumin [Mass/volume] i n UrineOrdered By: Kenyetta Dove on 08-10-2022 Albumin DL <= 20 mg/L (U) [Mass/Vol] mg/dL 0.0-1.8 [facility] Monocytes Auto (Bld) [#/Vol] Ordered By: Kenyetta Dove on 08-10-2022 Monocytes (Bld) [#/Vol] 0.3 10*3/uL 0.0-0.8 [facility] Monocytes/100 WBC Auto (Bld) Ordered By: Kenyetta Dove on 08-10-2022 Monocytes/100 WBC (Bld) 3.9 % . [facility] Neutrophils Auto (Bld) [#/Vo l]Ordered By: Kenyetta Dove on 08-10-2022 Neutrophils (Bld) [#/Vol] 5.5 10*3/uL 1.8-7.7 [facility] Neutrophils/100 WBC Auto (Bl d)Ordered By: Kenyetta Dove on 08-10-2022 Neutrophils/100 WBC (Bld) 66.2 % . [facility] No Panel InformationOrdered By: Kenyetta Dove on 08-10-2022 Pharmacy Creatinine Clearance (Chem N/A [facility] Nucleated erythrocytes [Pres ence] in Blood by Automated countOrdered By: Kenyetta Dove on 08-10-2022 Nucleated RBC Auto Ql (Bld) 0.1 /100{WBC} 0-0.5 [facility] Platelet mean volume Auto (B ld) [Entitic vol]Ordered By: Kenyetta Dove on 08-10-2022 Platelet mean volume (Bld) [Entitic vol] 8.2 fL 6.3-10.7 [facility] Platelets Auto (Bld) [#/Vol] Ordered By: Kenyetta Dove on 08-10-2022 Platelets (Bld) [#/Vol] 313 10*3/uL 150-450 [facility] Potassium [Moles/volume] in Serum or PlasmaOrdered By: Kenyetta Dove on 08-10-2022 Potassium [Moles/Vol] 4.1 mmol/L 3.5-5.1 [facility] Protein [Mass/volume] in Ser um or PlasmaOrdered By: Kenyetta Dove on 08-10-2022 Protein [Mass/Vol] 6.3 g/dL 6.4-8.9 [facility] RBC Auto (Bld) [#/Vol]Ordere d By: Kenyetta Dove on 08-10-2022 RBC (Bld) [#/Vol] 4.20 10*6/uL 3.60-5.00 [facility] Serum or plasma albumin/glob ulin mass ratioOrdered By: Kenyetta Dove on 08-10-2022 Albumin/Globulin [Mass ratio] 1.7 {ratio} [facility] Serum or plasma anion gap de terminationOrdered By: Kenyetta Dove on 08-10-2022 Anion gap [Moles/Vol] 10.1 mmol/L 6.0-15.0 [facility] Serum or plasma high density lipoprotein (HDL) cholesterol measurementOrdered By: Kenyetta Dove on 08-10-2022 Cholesterol in HDL [Mass/Vol] 53 mg/dL 35-85 [facility] Comment on above: HDL CHOL ATP-III CLA SSIFICATION Cardiovascular RiskHDL > or equal to 60 mg/dL LOWHDL < 40 mg/dL HIGH Serum or plasma lutropin lisa surement (units/volume)Ordered By: Kenyetta Dove on 08-10-2022 Lutropin Qn 14.0 m[IU]/mL . [facility] Comment on above: Adult Female: Follic ular phase 2.4 - 12.6 Ovulation phase 14.0 - 95.6 Luteal phase 1.0 - 11.4 Postmenopausal 7.7 - 58.5 Serum or plasma progesterone measurement (mass/volume)Ordered By: Kenyetta Dove on 08-10-2022 Progesterone [Mass/Vol] 0.2 ng/mL . [facility] Comment on above: Follicular phase 0.1 - 0.9 Luteal phase 1.8 - 23.9 Ovulation phase 0.1 - 12.0 First trimester 11.0 - 44.3 Second trimester 25.4 - 83.3 Third trimester 58.7 - 214.0 Postmenopausal 0.0 - 0.1Performed at: - [facility] [address] [id number] Director: Ramirez Ca PhD, Phone: [phone] Serum or plasma total choles terol/high density lipoprotein (HDL) cholesterol mass ratOrdered By: Kenyetta Dove on 08-10-2022 Cholesterol.total/Cho lesterol in HDL [Mass ratio] 2.7 {ratio} <5.0 [facility] Sodium [Moles/volume] in Ser um or PlasmaOrdered By: Kenyetta Dove on 08-10-2022 Sodium [Moles/Vol] 139 mmol/L 136-145 [facility] Thyrotropin [Units/volume] i n Serum or PlasmaOrdered By: Kenyetta Dove on 08-10-2022 TSH Qn 0.31 m[IU]/L 0.45-5.33 [facility] Thyroxine (T4) free [Mass/vo lume] in Serum or PlasmaOrdered By: Kenyetta Dove on 08-10-2022 Free T4 [Mass/Vol] 0.80 ng/dL 0.61-1.12 [facility] Total estrogen measurementOr dered By: Kenyetta Dove on 08-10-2022 Estrogen [Mass/Vol] 310 pg/mL . [facility] Comment on above: Prepubertal < 40 Fem giacomo Cycle: 1-10 Days 16 - 328 11-20 Days 34 - 501 21-30 Days 48 - 350 Post-Menopausal 40 - 244Performed at: - [facility] [id number] Director: Roger Kenny MD, Phone: [phone] Triglyceride [Mass/volume] i n Serum or PlasmaOrdered By: Kenyetta Dove on 08-10-2022 Triglyceride [Mass/Vol] 139 mg/dL 0-149 [facility] Comment on above: TRIG ATP [...] 08-10-2022 Urea nitrogen [Mass/Vol] 8 mg/dL 7-25 [facility] Vitamin D+Metabolites [Mass/ volume] in Serum or PlasmaOrdered By: Kenyetta Dove on 08-10-2022 Vitamin D+Metabolites [Mass/Vol] 36.0 ng/mL 30-100 [facility] Comment on above: VITAMIN D STATUS 25( [place])VITAMIN D RANGE (ng/mL) Deficient <20 Insufficient 20 to <30Sufficient 30 to 100Reference: Kirby MF,Adonay NC, Shantelle HOLLOWAY, et al. Evaluation,treatment, and prevention of vitamin D deficiency; an Endocrine Society clinical practice guideline. JCEM. 2010; 96(7):1911-30. WBC Auto (Bld) [#/Vol]Ordere d By: Kenyetta Derrell on 08-10-2022 WBC (Bld) [#/Vol] 8.3 10*3/uL [...] visit. 4 months with EKG Retrieve [facility] Chief Complaint LUPE PICKARD is [...] TWICE A DAY Vitamin D3 1.25 MG (17196 UT) Oral CapsuleTAKE 1 CAPSULE Daily Allergies [...] rashes. Neurological: (more content not included)... Normal [facility] Tobacco Screening.on 023 Fall risk assessment c) Not medically indicated [facility] [address] [place] Work Phone: Tobacco use status CP b) No [facility] DO Work Phone: Tobacco Screening. Yes [facility] 250 DO Work Phone: No Panel Informationon 07-16 [facility] DO Work Phone: Basophils Auto (Bld) [#/Vol] Ordered By: Steve Coronel on 06-21-2022 Basophils (Bld) [#/Vol] 0.1 10*3/uL 0.0-0.2 [facility] Basophils/100 WBC Auto (Bld) Ordered By: Steve Coronel on 06-21-2022 Basophils/100 WBC (Bld) 0.6 % . [facility] Bilirubin Test strip Ql (U)O rdered By: Steve Coronel on 06-21-2022 Bilirubin Ql (U) Negative Negative [facility] Body fluid albumin measureme nt (mass/volume)Ordered By: Steve Coronel on 06-21-2022 Albumin (Body fld) [Mass/Vol] 3.7 g/dL 3.2-5.5 [facility] Color Auto (U)Ordered By: Eduardo Coronel on 06-21-2022 Color (U) Yellow Yellow [facility] Creatinine and Glomerular fi ltration rate.predicted panel (S/P/Bld)Ordered By: Steve Coronel on 06-21-2022 Creatinine [Mass/Vol] 0.51 mg/dL 0.44-1.03 [facility] Eosinophils Auto (Bld) [#/Vo l]Ordered By: Steve Coronel on 06-21-2022 Eosinophils (Bld) [#/Vol] 0.1 10*3/uL 0.0-0.45 [facility] Eosinophils/100 WBC Auto (Bl d)Ordered By: Steve Coronel on 06-21-2022 Eosinophils/100 WBC (Bld) 1.2 % . [facility] Erythrocyte distribution wid th Auto (RBC) [Ratio]Ordered By: Steve Coronel on 06-21-2022 Erythrocyte distribution width (RBC) [Ratio] 15.0 % 11.9-15.3 [facility] Estimated glomerular filtrat ion rate (GFR) non- AmericanOrdered By: Steve Coronel on 06-21-2022 GFR/1.73 sq M.predicted among non-blacks MDRD (S/P/Bld) [Vol rate/Area] > 60 mL/Min [facility] Globulin Calc (S) [Mass/Vol] Ordered By: Steve Coronel on 06-21-2022 Globulin (S) [Mass/Vol] 3.1 g/dL [facility] Hematocrit Auto (Bld) [Volum e fraction]Ordered By: Steve Coronel on 06-21-2022 Hematocrit (Bld) [Volume fraction] 40.1 % 34.0-46.4 [facility] Hemoglobin [Mass/volume] in BloodOrdered By: Steve Coronel on 06-21-2022 Hemoglobin (Bld) [Mass/Vol] 13.2 g/dL 11.8-15.4 [facility] Ketones Auto test strip (U) [Mass/Vol]Ordered By: Steve Coronel on 06-21-2022 Ketones (U) [Mass/Vol] Negative Negative [facility] - Chemistry and C hemistry - challengeOrdered By: Steve Coronel on 06-21-2022 Lipase [Catalytic activity/Vol] 28.0 U/L 22-51 [facility] Natriuretic peptide B (Bld) [Mass/Vol] 35.0 pg/mL 5-100 [facility] Leukocytes [#/volume] correc emily for nucleated erythrocytes in Blood by Automated counOrdered By: Steve Coronel on 06-21-2022 WBC corrected for nucl RBC Auto (Bld) [#/Vol] 9.5 10*3/uL 3.8-11.6 [facility] Lymphocytes Auto (Bld) [#/Vo l]Ordered By: Steve Coronel on 06-21-2022 Lymphocytes (Bld) [#/Vol] 2.8 10*3/uL 1.00-4.8 [facility] Lymphocytes/100 WBC Auto (Bl d)Ordered By: Steve Coronel on 06-21-2022 Lymphocytes/100 WBC (Bld) 29.5 % . [facility] MCH Auto (RBC) [Entitic mass ]Ordered By: Steve Coronel on 06-21-2022 MCH (RBC) [Entitic mass] 28.7 pg 24.7-34.3 [facility] MCHC Auto (RBC) [Mass/Vol]Or dered By: Steve Coronel on 06-21-2022 MCHC (RBC) [Mass/Vol] 33.0 g/dL 32.0-35.0 [facility] MCV Auto (RBC) [Entitic vol] Ordered By: Steve Coronel on 06-21-2022 MCV (RBC) [Entitic vol] 86.9 fL 80-100 [facility] Monocyte distribution width [Entitic volume] in Blood by AutomatedOrdered By: Steve Coronel on 06-21-2022 Monocyte distribution width Auto (Bld) [Entitic vol] 18.39 % 0.00-20.00 [facility] Monocytes Auto (Bld) [#/Vol] Ordered By: Steve Coronel on 06-21-2022 Monocytes (Bld) [#/Vol] 0.4 10*3/uL 0.0-0.8 [facility] Monocytes/100 WBC Auto (Bld) Ordered By: Steve Coronel on 06-21-2022 Monocytes/100 WBC (Bld) 3.8 % . [facility] Neutrophils Auto (Bld) [#/Vo l]Ordered By: Steve Coronel on 06-21-2022 Neutrophils (Bld) [#/Vol] 6.2 10*3/uL 1.8-7.7 [facility] Neutrophils/100 WBC Auto (Bl d)Ordered By: Steve Coronel on 06-21-2022 Neutrophils/100 WBC (Bld) 64.9 % . [facility] Nitrite Test strip Ql (U)Ord ered By: Steve Coronel on 06-21-2022 Nitrite Ql (U) Negative Negative [facility] No Panel InformationOrdered By: Steve Coronel on 06-21-2022 D-Dimer Quantitative (PE/DVT) < 200 ng/mL 0-243 [facility] Comment on above: The reference [...] conditions. Estimated GFR () > 60 mL/Min [facility] Comment on above: GFR estimated refere nce range: According to KDOQI guidelines, <60 ml/min/1.73m2 is sufficient to diagnose a patient with chronic kidney disease. Pharmacy Creatinine Clearance (Chem N/A [facility] Nucleated erythrocytes [Pres ence] in Blood by Automated countOrdered By: Steve Coronel on 06-21-2022 Nucleated RBC Auto Ql (Bld) 0.1 /100{WBC} 0-0.5 [facility] Platelet mean volume Auto (B ld) [Entitic vol]Ordered By: Steve Coronel on 06-21-2022 Platelet mean volume (Bld) [Entitic vol] 8.0 fL 6.3-10.7 [facility] Platelets Auto (Bld) [#/Vol] Ordered By: Steve Coronel on 06-21-2022 Platelets (Bld) [#/Vol] 356 10*3/uL 150-450 [facility] Protein Auto test strip (U) [Mass/Vol]Ordered By: Steve Coronel on 06-21-2022 Protein (U) [Mass/Vol] Negative Negative [facility] Protein [Mass/volume] in Ser um or PlasmaOrdered By: Steve Coronel on 06-21-2022 Protein [Mass/Vol] 6.8 g/dL 6.1-7.9 [facility] RBC Auto (Bld) [#/Vol]Ordere d By: Steve Coronel on 06-21-2022 RBC (Bld) [#/Vol] 4.61 10*6/uL 3.60-5.00 [facility] Serum or plasma alanine ott otransferase measurement without P-5'-P (enzymatic activiOrdered By: Steve Coronel on 06-21-2022 ALT No additional P-5'-P [Catalytic activity/Vol] 17 U/L 10-60 [facility] Serum or plasma albumin/glob ulin mass ratioOrdered By: Steve Coronel on 06-21-2022 Albumin/Globulin [Mass ratio] 1.2 {ratio} [facility] Serum or plasma alkaline chirag sphatase measurement (enzymatic activity/volume)Ordered By: Steve Coronel on 06-21-2022 ALP [Catalytic activity/Vol] 52 U/L 32-92 [facility] Serum or plasma anion gap de terminationOrdered By: Steve Coronel on 06-21-2022 Anion gap [Moles/Vol] 12.7 mmol/L 6.0-15.0 [facility] Serum or plasma aspartate am inotransferase measurement (enzymatic activity/volume)Ordered By: Steve Coronel on 06-21-2022 AST [Catalytic activity/Vol] 19 U/L 10-42 [facility] Serum or plasma calcium merari urement (mass/volume)Ordered By: Steve Coronel on 06-21-2022 Calcium [Mass/Vol] 9.1 mg/dL 8.2-10.2 [facility] Serum or plasma chloride lisa surement (moles/volume)Ordered By: Steve Coronel on 06-21-2022 Chloride [Moles/Vol] 100 mmol/L 95-114 [facility] Serum or plasma glucose merari urement [...] on 06-21-2022 Potassium [Moles/Vol] 3.9 mmol/L 3.5-5.1 [facility] Serum or plasma sodium measu rement (moles/volume)Ordered By: Steve Coronel on 06-21-2022 Sodium [Moles/Vol] 135 mmol/L 136-146 [facility] Serum or plasma total biliru bin measurement (mass/volume)Ordered By: Steve Coronel on 06-21-2022 Bilirubin [Mass/Vol] 0.6 mg/dL 0.3-1.2 [facility] Serum or plasma total carbon dioxide measurement (moles/volume)Ordered By: Steve Coronel on 06-21-2022 CO2 [Moles/Vol] 26.2 mmol/L 22.0-30.0 [facility] Serum or plasma urea nitroge n measurement (mass/volume)Ordered By: Steve Coronel on 06-21-2022 Urea nitrogen [Mass/Vol] 8 mg/dL 02-19 [facility] Specific gravity Auto test s trip (U) [Rel density]Ordered By: Steve Coronel on 06-21-2022 Specific gravity (U) [Rel density] 1.005 1.001-1.03 0 [facility] Troponin I.cardiac [Mass/vol ume] in Serum or Plasma by High sensitivity methodOrdered By: Steve Coronel on 06-21-2022 Troponin I.cardiac High sensitivity method [Mass/Vol] < 3 pg/mL 0-15 [facility] Urine clarity by refractomet ry automatedOrdered By: Steve Coronel on 06-21-2022 Clarity Refractometry automated (U) Clear Clear [facility] Urine glucose measurement by automated test strip (mass/volume)Ordered By: Steve Coronel on 06-21-2022 Glucose Auto test strip (U) [Mass/Vol] Normal mg/dL Normal [facility] Urine hemoglobin detection b y automated test stripOrdered By: Steve Coronel on 06-21-2022 Hemoglobin Auto test strip Ql (U) Negative Negative [facility] Urine leukocyte esterase det ection by automated test stripOrdered By: Steve Coronel on 06-21-2022 Leukocyte esterase Auto test strip Ql (U) Negative Negative [facility] Urobilinogen Auto test strip (U) [Mass/Vol]Ordered By: Steve Coronel on 06-21-2022 Urobilinogen (U) [Mass/Vol] Normal mg/dL Normal [facility] WBC Auto (Bld) [#/Vol]Ordere d By: Steve Coronel on 06-21-2022 WBC (Bld) [#/Vol] 9.5 10*3/uL 3.8-11.6 [facility] pH Auto test strip (U)Ordere d By: Steve Coronel on 06-21-2022 pH (U) 7.5 [pH] 5.0-9.0 [facility] Office Visit (Cardiology)on 06-04-2022 Follow-up [...] (COVID-19) RNA CESAR+probe Ql (Unsp spec) Positive [facility] COVID + FLU Quick Testing Negative [facility] Quick Strepon 04-28-2022 S. pyogenes Org specific cx Ql (Throat) Negative [facility] Other Quick Strep [facility] Spaces 2 Host 04-18-1998 CONVERTED ELECTRONIC SIGNATURE [employer] STRIPPER SOFT PLASTIC (Electronic signature on file) Final Signed Out: 04/18/1998 09:51 [facility] CONVERTED FINAL DIAGNOSIS SPECIMEN ADEQUACY SATISFACTORY FOR EVALUATION GENERAL CATEGORIZATION WITHIN NORMAL LIMITS HORMONAL EVALUATION HORMONAL PATTERN COMPATIBLE WITH AGE AND HISTORY [facility] CONVERTED ORDERING PROVIDER Ordering Provider: PETER LOBO [facility] CONVERTED PAP DISCLAIMER The Pap test serves as a screening tool for early detection of cervical cancer. The Pap test does not represent a final diagnostic test for cervical cancer. Furthermore, the Pap test was not designed to screen for other malignancies (endometrial, ovarian cancer, etc....). False negatives and false positives have occurred. If clinically indicated, further patient evaluation is recommended. [facility] Vital Signs Date Time Vital Sign Value Performing Clinician Facility 01-31-2025 14:08-0400 Diastolic blood pressure 66 mm[Hg] Melissa Coon MD Work Phone: [facility] 01-31-2025 14:08-0400 Systolic blood pressure 126 mm[Hg] Melissa Coon MD Work Phone: [facility] 01-29-2025 15:19-0400 Body height 170.2 cm Amanda Valerio MD Work Phone: [facility] 01-29-2025 15:19-0400 Body mass index (BMI) [Ratio] 51.37 kg/m2 Amanda Valerio MD Work Phone: [facility] 01-29-2025 15:19-0400 Body weight 148.78 kg Amanda Valerio MD Work Phone: [facility] 01-29-2025 15:19-0400 Diastolic blood pressure 80 mm[Hg] Amanda Valerio MD Work Phone: [facility] 01-29-2025 15:19-0400 Systolic blood pressure 124 mm[Hg] Amanda Valerio MD Work Phone: [facility] 01-11-2025 13:43-0400 Body mass index (BMI) [Ratio] 50.59 kg/m2 Dalia Risaliti [employer] Work Phone: [facility] 01-11-2025 13:43-0400 Body weight 146.51 kg Dalia Risaliti [employer] Work Phone: [facility] 01-11-2025 13:43-0400 Diastolic blood pressure 82 mm[Hg] Dalia Risaliti [employer] Work Phone: [facility] 01-11-2025 13:43-0400 Heart rate 65 /min Dalia Risaliti [employer] Work Phone: [facility] 01-11-2025 13:43-0400 SaO2% (BldA) [Mass fraction] 99 % Dalia Risaliti [employer] Work Phone: [facility] 01-11-2025 13:43-0400 Systolic blood pressure 138 mm[Hg] Dalia Risaliti [employer] Work Phone: [facility] 01-08-2025 11:41-0400 Diastolic blood pressure 68 mm[Hg] Melissa Coon MD Work Phone: [facility] 01-08-2025 11:41-0400 Systolic blood pressure 132 mm[Hg] Melissa Coon MD Work Phone: [facility] 01-08-2025 11:40-0400 Body height 170.18 cm Melissa Coon MD Work Phone: [facility] 01-08-2025 11:40-0400 Body mass index (BMI) [Ratio] 47 kg/m2 Melissa Coon MD Work Phone: [facility] 01-08-2025 11:40-0400 Body weight 136.07 kg Melissa Coon MD Work Phone: [facility] 01-02-2025 11:29-0400 Body height 170.18 cm Melissa Coon MD Work Phone: [facility] 01-02-2025 11:29-0400 Body temperature 98 [degF] Melissa Coon MD Work Phone: [facility] 01-02-2025 11:29-0400 Body weight 136.07 kg Melissa Coon MD Work Phone: [facility] 01-02-2025 11:29-0400 Diastolic blood pressure 71 mm[Hg] Melissa Coon MD Work Phone: [facility] 01-02-2025 11:29-0400 Heart rate 89 /min Melissa Coon MD Work Phone: [facility] 01-02-2025 11:29-0400 Respiratory rate 18 /min Melissa Coon MD Work Phone: [facility] 01-02-2025 11:29-0400 SaO2% (BldA) [Mass fraction] 100 % Melissa Coon MD Work Phone: [facility] 01-02-2025 11:29-0400 Systolic blood pressure 144 mm[Hg] Melissa Coon MD Work Phone: [facility] 12-26-2024 09:16-0400 Body height 170.18 cm Melissa Coon MD Work Phone: [facility] 12-26-2024 09:16-0400 Body mass index (BMI) [Ratio] 49.4 kg/m2 Melissa Coon MD Work Phone: [facility] 12-26-2024 09:16-0400 Body temperature 97.8 [degF] Melissa Coon MD Work Phone: [facility] 12-26-2024 09:16-0400 Body weight 143.33 kg Melissa Coon MD Work Phone: [facility] 12-26-2024 09:16-0400 Diastolic blood pressure 82 mm[Hg] Melissa Coon MD Work Phone: [facility] 12-26-2024 09:16-0400 Heart rate 86 /min Melissa Coon MD Work Phone: [facility] 12-26-2024 09:16-0400 Respiratory rate 16 /min Melissa Coon MD Work Phone: [facility] 12-26-2024 09:16-0400 SaO2% (BldA) [Mass fraction] 96 % Melissa Coon MD Work Phone: [facility] 12-26-2024 09:16-0400 Systolic blood pressure 124 mm[Hg] Melissa Coon MD Work Phone: [facility] 12-20-2024 15:10-0400 Body height 170.2 cm Summer Workman PA Work Phone: [facility] 12-20-2024 15:10-0400 Body mass index (BMI) [Ratio] 50.68 kg/m2 Summer Workman PA Work Phone: [facility] 12-20-2024 15:10-0400 Body weight 146.78 kg Summer Workman PA Work Phone: [facility] 12-20-2024 15:10-0400 Diastolic blood pressure 80 mm[Hg] Summer Workman PA Work Phone: [facility] 12-20-2024 15:10-0400 Heart rate 79 /min summer PA Work Phone: [facility] 12-20-2024 15:10-0400 SaO2% (BldA) [Mass fraction] 97 % summer PA Work Phone: [facility] 12-20-2024 15:10-0400 Systolic blood pressure 118 mm[Hg] summerman PA Work Phone: [facility] 12-13-2024 10:42-0400 Body height 170.2 cm Melissa Coon MD Work Phone: [facility] 12-13-2024 10:42-0400 Body mass index (BMI) [Ratio] 50.12 kg/m2 Melissa Coon MD Work Phone: [facility] 12-13-2024 10:42-0400 Body weight 145.15 kg Melissa Coon MD Work Phone: [facility] 12-13-2024 10:42-0400 Diastolic blood pressure 86 mm[Hg] Melissa Coon MD Work Phone: [facility] 12-13-2024 10:42-0400 Heart rate 79 /min Melissa Coon MD Work Phone: [facility] 12-13-2024 10:42-0400 SaO2% (BldA) [Mass fraction] 97 % Melissa Coon MD Work Phone: [facility] 12-13-2024 10:42-0400 Systolic blood pressure 124 mm[Hg] Melissa Coon MD Work Phone: [facility] 12-06-2024 15:46-0400 Body height 170.2 cm Omid Quan [employer] Work Phone: [facility] 12-06-2024 15:46-0400 Body mass index (BMI) [Ratio] 50.12 kg/m2 Omid Quan [employer] Work Phone: [facility] 12-06-2024 15:46-0400 Body weight 145.15 kg Omid Quan [employer] Work Phone: [facility] 12-06-2024 15:46-0400 Diastolic blood pressure 80 mm[Hg] Omid Quan [employer] Work Phone: [facility] 12-06-2024 15:46-0400 Heart rate 90 /min Omid Quan [employer] Work Phone: [facility] 12-06-2024 15:46-0400 SaO2% (BldA) [Mass fraction] 97 % Omid Quan [employer] Work Phone: [facility] 12-06-2024 15:46-0400 Systolic blood pressure 128 mm[Hg] Omid Quan [employer] Work Phone: [facility] 11-29-2024 11:15-0400 Body height 170.18 cm Melissa Coon MD Work Phone: [facility] 11-29-2024 11:15-0400 Body mass index (BMI) [Ratio] 49.4 kg/m2 Melissa Coon MD Work Phone: [facility] 11-29-2024 11:15-0400 Body weight 143.33 kg Melissa Coon MD Work Phone: [facility] 11-29-2024 09:53-0400 Body height 170.18 cm Melissa Coon MD Work Phone: [facility] 11-29-2024 09:53-0400 Body mass index (BMI) [Ratio] 109 kg/m2 Melissa Coon MD Work Phone: [facility] 11-29-2024 09:53-0400 Body weight 316 kg Melissa Coon MD Work Phone: [facility] 11-29-2024 09:53-0400 Diastolic blood pressure 83 mm[Hg] Melissa Coon MD Work Phone: [facility] 11-29-2024 09:53-0400 Heart rate 79 /min Melissa Coon MD Work Phone: [facility] 11-29-2024 09:53-0400 SaO2% (BldA) [Mass fraction] 97 % Melissa Coon MD Work Phone: [facility] 11-29-2024 09:53-0400 Systolic blood pressure 143 mm[Hg] Melissa Coon MD Work Phone: [facility] 11-21-2024 10:37-0400 Body mass index (BMI) [Ratio] 48.4 kg/m2 Dalia Risaliti [employer] Work Phone: [facility] 11-21-2024 10:37-0400 Body weight 140.16 kg Dalia Risaliti [employer] Work Phone: [facility] 11-21-2024 10:37-0400 Diastolic blood pressure 80 mm[Hg] Dalia Risaliti [employer] Work Phone: [facility] 11-21-2024 10:37-0400 Heart rate 75 /min Dalia Risaliti [employer] Work Phone: [facility] 11-21-2024 10:37-0400 SaO2% (BldA) [Mass fraction] 97 % Dalia Risaliti [employer] Work Phone: [facility] 11-21-2024 10:37-0400 Systolic blood pressure 140 mm[Hg] Dalia Risaliti [employer] Work Phone: [facility] 10-25-2024 08:07-0400 Diastolic blood pressure 82 mm[Hg] Melissa Coon MD Work Phone: [facility] 10-25-2024 08:07-0400 Heart rate 76 /min Melissa Coon MD Work Phone: [facility] 10-25-2024 08:07-0400 Systolic blood pressure 146 mm[Hg] Melissa Coon MD Work Phone: [facility] 10-09-2024 10:17-0400 Body height 170.2 cm [facility] Workman PA Work Phone: [facility] 10-09-2024 10:17-0400 Body mass index (BMI) [Ratio] 48.87 kg/m2 Summer Workman PA Work Phone: [facility] 10-09-2024 10:170400 Body weight 141.52 kg Summer Workman PA Work Phone: [facility] 10-09-2024 10:17-0400 Diastolic blood pressure 80 mm[Hg] Summer Workman PA Work Phone: [facility] 10-09-2024 10:17-0400 Heart rate 82 /min Summer Workman PA Work Phone: [facility] 10-09-2024 10:17-0400 SaO2% (BldA) [Mass fraction] 97 % [facility] Workman PA Work Phone: [facility] 10-09-2024 10:17-0400 Systolic blood pressure 134 mm[Hg] [facility] Workman PA Work Phone: [facility] 05-14-2024 14:13-0500 Body height 170.18 cm Melissa Coon MD Work Phone: [facility] 05-14-2024 14:13-0500 Body mass index (BMI) [Ratio] 42.3 kg/m2 Melissa Coon MD Work Phone: [facility] 05-14-2024 14:13-0500 Body temperature 98.2 [degF] Melissa Coon MD Work Phone: [facility] 05-14-2024 14:13-0500 Body weight 122.46 kg Melissa Coon MD Work Phone: [facility] 05-14-2024 14:13-0500 Diastolic blood pressure 85 mm[Hg] Melissa Coon MD Work Phone: [facility] 05-14-2024 14:13-0500 Heart rate 74 /min Melissa Coon MD Work Phone: [facility] 05-14-2024 14:13-0500 Respiratory rate 18 /min Melissa Coon MD Work Phone: [facility] 05-14-2024 14:13-0500 SaO2% (BldA) [Mass fraction] 97 % Melissa Coon MD Work Phone: [facility] 05-14-2024 14:13-0500 Systolic blood pressure 141 mm[Hg] Melissa Coon MD Work Phone: [facility] 03-07-2024 11:08-0400 Body mass index (BMI) [Ratio] 41.97 kg/m2 [address] [employer] [facility] 03-07-2024 11:08-0400 Body weight 121.[address] [facility] [facility] 03-07-2024 11:08-0400 Diastolic blood pressure 88 mm[Hg] [facility] [address] [facility] [facility] 03-07-2024 11:08-0400 Heart rate 91 /min [facility] [facility] [facility] 03-07-2024 11:08-0400 SaO2% (BldA) [Mass fraction] 98 % [facility] [address] [facility] [facility] 03-07-2024 11:08-0400 Systolic blood pressure 138 mm[Hg] [facility] [address] [facility] [facility] 02-28-2024 09:45-0400 Body height 170.2 cm Kenyetta Dove MD Work Phone: [facility] 02-28-2024 09:45-0400 Body mass index (BMI) [Ratio] 41.97 kg/m2 Kenyetta Dove MD Work Phone: [facility] 02-28-2024 09:45-0400 Body weight 121.56 kg Kenyetta Dove MD Work Phone: [facility] 02-28-2024 09:45-0400 Diastolic blood pressure 84 mm[Hg] Kenyetta Dove MD Work Phone: [facility] 02-28-2024 09:45-0400 Heart rate 78 /min Kenyetta Dove MD Work Phone: [facility] 02-28-2024 09:45-0400 Respiratory rate 18 /min Kenyetta Dove MD Work Phone: [facility] 02-28-2024 09:45-0400 Systolic blood pressure 126 mm[Hg] Kenyetta Dove MD Work Phone: [facility] 01-24-2024 15:28-0400 Body height 170.2 cm Melissa Coon MD Work Phone: [facility] 01-24-2024 15:28-0400 Body mass index (BMI) [Ratio] 43.54 kg/m2 Melissa Coon MD Work Phone: [facility] 01-24-2024 15:28-0400 Body weight 126.1 kg Melissa Coon MD Work Phone: [facility] 01-24-2024 15:28-0400 Diastolic blood pressure 82 mm[Hg] Melissa Coon MD Work Phone: [facility] 01-24-2024 15:28-0400 Heart rate 64 /min Melissa Coon MD Work Phone: [facility] 01-24-2024 15:28-0400 SaO2% (BldA) [Mass fraction] 95 % Melissa Coon MD Work Phone: [facility] 01-24-2024 15:28-0400 Systolic blood pressure 138 mm[Hg] Melissa Coon MD Work Phone: [facility] 12-05-2023 11:42-0400 Body height 170.18 cm DO Melissa Cromley II Work Phone: [facility] 12-05-2023 11:42-0400 Body mass index (BMI) [Ratio] 40.7 kg/m2 DO Melissa Cromley II Work Phone: [facility] 12-05-2023 11:42-0400 Body temperature 98.2 [degF] DO Melissa Cromley II Work Phone: [facility] 12-05-2023 11:42-0400 Body weight 117.93 kg DO Melissa Cromley II Work Phone: [facility] 12-05-2023 11:42-0400 Diastolic blood pressure 94 mm[Hg] DO Melissa Cromley II Work Phone: [facility] 12-05-2023 11:42-0400 Heart rate 78 /min DO Melissa Cromley II Work Phone: [facility] 12-05-2023 11:42-0400 SaO2% (BldA) [Mass fraction] 94 % DO Melissa Cromley II Work Phone: [facility] 12-05-2023 11:42-0400 Systolic blood pressure 138 mm[Hg] DO Melissa Cromley II Work Phone: [facility] 10-03-2023 11:47-0400 Body height 170.18 cm DO Melissa Cromley II Work Phone: [facility] 10-03-2023 11:47-0400 Body mass index (BMI) [Ratio] 45.2 kg/m2 DO Melissa Cromley II Work Phone: [facility] 10-03-2023 11:47-0400 Body weight 131 kg DO Melissa Cromley II Work Phone: [facility] 09-20-2023 11:34-0400 Body height 170.18 cm DO Melissa Cromley II Work Phone: [facility] 09-20-2023 11:34-0400 Body temperature 98.1 [degF] DO Melissa Cromley II Work Phone: [facility] 09-20-2023 11:34-0400 Body weight 131.9 kg DO Melissa Cromley II Work Phone: [facility] 09-20-2023 11:34-0400 Diastolic blood pressure 101 mm[Hg] DO Melissa Cromley II Work Phone: [facility] 09-20-2023 11:34-0400 Heart rate 86 /min DO Melissa Cromley II Work Phone: [facility] 09-20-2023 11:34-0400 Respiratory rate 19 /min DO Melissa Cromley II Work Phone: [facility] 09-20-2023 11:34-0400 SaO2% (BldA) [Mass fraction] 97 % DO Melissa Cromley II Work Phone: [facility] 09-20-2023 11:34-0400 Systolic blood pressure 167 mm[Hg] DO Melissa Cromley II Work Phone: [facility] 07-22-2023 10:32-0500 Body temperature 98.2 [degF] DO Melissa Cromley II Work Phone: [facility] 07-22-2023 10:32-0500 Diastolic blood pressure 78 mm[Hg] DO Melissa Cromley II Work Phone: [facility] 07-22-2023 10:32-0500 Heart rate 79 /min DO Melissa Cromley II Work Phone: [facility] 07-22-2023 10:32-0500 Respiratory rate 16 /min DO Melissa Cromley II Work Phone: [facility] 07-22-2023 10:32-0500 SaO2% (BldA) [Mass fraction] 96 % DO Melissa Cromley II Work Phone: [facility] 07-22-2023 10:32-0500 Systolic blood pressure 132 mm[Hg] DO Melissa Cromley II Work Phone: [facility] 07-22-2023 08:20-0500 Body height 170.18 cm DO Melissa Cromley II Work Phone: [facility] 07-22-2023 08:20-0500 Body weight 124.2 kg DO Melissa Cromley II Work Phone: [facility] 07-08-2023 14:25-0500 Body height 170.18 cm Roula James Other [facility] Other 07-08-2023 14:25-0500 Body mass index (BMI) [Ratio] 42.28 kg/m2 Roula James Other [facility] 07-08-2023 14:25-0500 Body temperature 99.6 [degF] Roula James Other [facility] 07-08-2023 14:25-0500 Body weight 122.47 kg Roula James Other [facility] 07-08-2023 14:25-0500 Diastolic blood pressure 85 mm[Hg] Roula James Other [facility] 07-08-2023 14:25-0500 SaO2% (BldA) [Mass fraction] 96 % Roula James Other [facility] 07-08-2023 14:25-0500 Systolic blood pressure 140 mm[Hg] Roula James Other Sl[employer] Other 03-29-2023 10:13-0400 Diastolic blood pressure 98 mm[Hg] PHYSICIAN NO [facility] 03-29-2023 10:13-0400 Heart rate 70 /min PHYSICIAN NO [facility] 03-29-2023 10:13-0400 Respiratory rate 20 /min PHYSICIAN NO [facility] 03-29-2023 10:13-0400 SaO2% (BldA) [Mass fraction] 98 % PHYSICIAN NO [facility] 03-29-2023 10:13-0400 Systolic blood pressure 167 mm[Hg] PHYSICIAN NO [facility] 03-29-2023 08:29-0400 Body height 170.18 cm PHYSICIAN NO [facility] 03-29-2023 08:29-0400 Body weight 120.2 kg PHYSICIAN NO [facility] 03-27-2023 13:45-0400 Body height 170.18 cm Oscar Reed Other [facility] Other 03-27-2023 13:45-0400 Body mass index (BMI) [Ratio] 42.03 kg/m2 Oscar Reed Other [facility] Other 03-27-2023 13:45-0400 Body temperature 98.1 [degF] Oscar Reed Other [facility] Other 03-27-2023 13:45-0400 Body weight 121.75 kg Oscar Reed Other [facility] Other 03-27-2023 13:45-0400 Diastolic blood pressure 92 mm[Hg] Oscar Reed Other [facility] Other 03-27-2023 13:45-0400 Respiratory rate 18 /min Oscar Reed Other [facility] Other 03-27-2023 13:45-0400 SaO2% (BldA) [Mass fraction] 97 % Oscar Reed Other [facility] Other 03-27-2023 13:45-0400 Systolic blood pressure 156 mm[Hg] Oscar Reed Other [facility] Other 02-17-2023 13:15-0400 Body height 170.18 cm Beny Hoskins Other [facility] Other 02-17-2023 13:15-0400 Body mass index (BMI) [Ratio] 42.03 kg/m2 Beny Hoskins Other [facility] Other 02-17-2023 13:15-0400 Body weight 121.75 kg Beny Hoskins Other [facility] [employer] Other 02-17-2023 13:15-0400 Diastolic blood pressure 79 mm[Hg] Beny Hoskins Other [facility] [employer] Other 02-17-2023 13:15-0400 Systolic blood pressure 139 mm[Hg] Beny Hoskins Other [facility] [employer] Other 01-24-2023 10:47-0400 Diastolic blood pressure 84 mm[Hg] DO Donya Billings Work Phone: [facility] 01-24-2023 10:47-0400 Heart rate 94 /min DO Donya Billings Work Phone: [facility] 01-24-2023 10:47-0400 Respiratory rate 20 /min DO Donya Billings Work Phone: [facility] 01-24-2023 10:47-0400 SaO2% (BldA) [Mass fraction] 98 % DO Donya Billings Work Phone: [facility] 01-24-2023 10:47-0400 Systolic blood pressure 181 mm[Hg] DO Donya Billings Work Phone: [facility] 01-24-2023 09:58-0400 Body height 170.18 cm DO Donya Billings Work Phone: [facility] 01-24-2023 09:58-0400 Body temperature 98 [degF] DO Donya Billings Work Phone: [facility] 01-24-2023 09:58-0400 Body weight 122.75 kg DO Donya Billings Work Phone: [facility] 12-30-2022 23:30-0400 Diastolic blood pressure 84 mm[Hg] DO Donya Billings Work Phone: [facility] 12-30-2022 23:30-0400 Heart rate 81 /min DO Donya Billings Work Phone: [facility] 12-30-2022 23:30-0400 Respiratory rate 20 /min DO Donya Billings Work Phone: [facility] 12-30-2022 23:30-0400 SaO2% (BldA) [Mass fraction] 98 % DO Donya Billings Work Phone: [facility] 12-30-2022 23:30-0400 Systolic blood pressure 176 mm[Hg] DO Donya Billings Work Phone: [facility] 12-30-2022 17:21-0400 Body height 170.18 cm DO Donya Billings Work Phone: [facility] 12-30-2022 17:21-0400 Body temperature 97.6 [degF] DO Donya Billings Work Phone: [facility] 12-30-2022 17:21-0400 Body weight 122.1 kg DO Donya Billings Work Phone: [facility] 12-20-2022 16:32-0400 Diastolic blood pressure 87 mm[Hg] DO Donya Billings Work Phone: [facility] 12-20-2022 16:32-0400 Heart rate 80 /min DO Donya Billings Work Phone: [facility] 12-20-2022 16:32-0400 Respiratory rate 18 /min DO Donya Billings Work Phone: [facility] 12-20-2022 16:32-0400 SaO2% (BldA) [Mass fraction] 98 % DO Donya Billings Work Phone: [facility] 12-20-2022 16:32-0400 Systolic blood pressure 137 mm[Hg] DO Donya Billings Work Phone: [facility] 12-20-2022 12:47-0400 Body height 170.18 cm DO Donya Billings Work Phone: [facility] 12-20-2022 12:47-0400 Body temperature 98.7 [degF] DO Donya Billings Work Phone: [facility] 12-20-2022 12:47-0400 Body weight 121.5 kg DO Donyaalfred Billings Work Phone: [facility] 12-08-2022 08:50-0400 Body height 170.18 cm Donya Billings Work Phone: [facility] [address] DO Work Phone: 12-08-2022 08:50-0400 Body mass index (BMI) [Ratio] 42.29 kg/m2 Donya Billings Work Phone: [facility] [address] DO Work Phone: 12-08-2022 08:50-0400 Body surface area Derived from formula 2.3 m2 Donya Billings Work Phone: [facility] [address] DO Work Phone: 12-08-2022 08:50-0400 Body weight 122.47 kg Donya Andriy Awa Work Phone: [facility] [address] DO Work Phone: 12-08-2022 08:50-0400 Diastolic blood pressure 80 mm[Hg] Donya Billings Work Phone: [facility] [address] DO Work Phone: 12-08-2022 08:50-0400 Heart rate 80 /min Donya Billings Work Phone: [facility] [address] DO Work Phone: 12-08-2022 08:50-0400 Systolic blood pressure 128 mm[Hg] Donya Billings Work Phone: [facility] [address] DO Work Phone: 11-06-2022 00:59-0400 Diastolic blood pressure 68 mm[Hg] DO Donya Billings Work Phone: [facility] 11-06-2022 00:59-0400 Heart rate 86 /min DO Donya Billings Work Phone: [facility] 11-06-2022 00:59-0400 Respiratory rate 19 /min DO Donya Billings Work Phone: [facility] 11-06-2022 00:59-0400 SaO2% (BldA) [Mass fraction] 99 % DO Donya Billings Work Phone: [facility] 11-06-2022 00:59-0400 Systolic blood pressure 139 mm[Hg] DO Donya Billings Work Phone: [facility] 11-05-2022 20:12-0400 Body height 170.18 cm DO Donya Billings Work Phone: [facility] 11-05-2022 20:12-0400 Body temperature 97.9 [degF] DO Donya Billings Work Phone: [facility] 11-05-2022 20:12-0400 Body weight 122.95 kg DO Donya Billings Work Phone: [facility] 10-13-2022 10:03-0400 Body height 170.18 cm Donya Billings Work Phone: [facility] [address] [place] Work Phone: 10-13-2022 10:03-0400 Body mass index (BMI) [Ratio] 41.98 kg/m2 Donya Billings Work Phone: [facility] [address] [place] Work Phone: 10-13-2022 10:03-0400 Body surface area Derived from formula 2.29 m2 Donya Billings Work Phone: [facility] [address] [place] Work Phone: 10-13-2022 10:03-0400 Body weight 121.56 kg Donya Billings Work Phone: [facility] [address] [place] Work Phone: 10-13-2022 10:03-0400 Diastolic blood pressure 68 mm[Hg] Donya Billings Work Phone: [facility] [address] [place] Work Phone: 10-13-2022 10:03-0400 Heart rate 68 /min Donya Billings Work Phone: [facility] [address] [place] Work Phone: 10-13-2022 10:03-0400 Systolic blood pressure 122 mm[Hg] Donya Billings Work Phone: [facility] [address] [place] Work Phone: 09-01-2022 14:30-0400 Body height 170.18 cm Oliver Mario Other [facility] Other 09-01-2022 14:30-0400 Body mass index (BMI) [Ratio] 41.97 kg/m2 Oliver Mario Other [facility] Other 09-01-2022 14:30-0400 Body weight 121.56 kg Oliver Mario Other [facility] Other 09-01-2022 14:30-0400 Diastolic blood pressure 96 mm[Hg] Oliver Mario Other [facility] Other 09-01-2022 14:30-0400 Systolic blood pressure 159 mm[Hg] Oliver Mario Other [facility] Other 07-28-2022 13:20-0500 Body height 170.18 cm Donya Billings Work Phone: [facility] [address] DO Work Phone: 07-28-2022 13:20-0500 Body mass index (BMI) [Ratio] 42.13 kg/m2 Donya Billings Work Phone: [facility] [place] Work Phone: 07-28-2022 13:20-0500 Body surface area Derived from formula 2.29 m2 Donya Billings Work Phone: [facility] [address] [place] Work Phone: 07-28-2022 13:20-0500 Body weight 122.02 kg Donya Billings Work Phone: [facility] [address] [place] Work Phone: 07-28-2022 13:20-0500 Diastolic blood pressure 68 mm[Hg] Donya Billings Work Phone: [facility] [address] [place] Work Phone: 07-28-2022 13:20-0500 Heart rate 78 /min Donya Billings Work Phone: [facility] [facility] [place] Work Phone: 07-28-2022 13:20-0500 Systolic blood pressure 142 mm[Hg] Donya Billings Work Phone: [facility] [place] Work Phone: 06-21-2022 13:10-0500 Diastolic blood pressure 79 mm[Hg] DO Donya Billings Work Phone: [facility] 06-21-2022 13:10-0500 Heart rate 75 /min DO Donya Billings Work Phone: [facility] 06-21-2022 13:10-0500 Respiratory rate 18 /min DO Donya Billings Work Phone: [facility] 06-21-2022 13:10-0500 SaO2% (BldA) [Mass fraction] 98 % DO Donya Billings Work Phone: [facility] 06-21-2022 13:10-0500 Systolic blood pressure 164 mm[Hg] DO Donya Billings Work Phone: [facility] 06-21-2022 10:26-0500 Body temperature 98.7 [degF] DO Donya Billings Work Phone: [facility] 05-12-2022 16:00-0500 Body height 170.18 cm Oliver Mario Other [facility] [employer] Other 05-12-2022 16:00-0500 Body mass index (BMI) [Ratio] 41.81 kg/m2 Oliver Mario Other [facility] Other 05-12-2022 16:00-0500 Body weight 121.11 kg Oliver Mario Other [facility] Other 05-12-2022 16:00-0500 Diastolic blood pressure 89 mm[Hg] Oliver Mario Other [facility] Other 05-12-2022 16:00-0500 Systolic blood pressure 139 mm[Hg] Oliver Mario Other [facility] Other 04-28-2022 16:00-0500 Body height 170.18 cm Oscar Reed Other [facility] Other 04-28-2022 16:00-0500 Body mass index (BMI) [Ratio] 39.93 kg/m2 Oscar Reed Other [facility] Other 04-28-2022 16:00-0500 Body temperature 97.9 [degF] Oscar Derek Other [facility] Other 04-28-2022 16:00-0500 Body weight 115.67 kg Oscar Derek Other [facility] Other 04-28-2022 16:00-0500 Diastolic blood pressure 88 mm[Hg] Oscar Reed Other [facility] Other 04-28-2022 16:00-0500 Respiratory rate 18 /min Oscar Reed Other [facility] Other 04-28-2022 16:00-0500 SaO2% (BldA) [Mass fraction] 97 % Oscar Reed Other [facility] Other 04-28-2022 16:00-0500 Systolic blood pressure 139 mm[Hg] Jaguarrubin Reed Other [facility] Other Encounters Encounter Date Encounter Type Care Provider Facility Start: 01-31-2025 End: 01-31-2025 ambulatory Melissa Coon MD Work Phone: [facility] Work Phone: Start: 01-31-2025 End: 01-31-2025 Patient encounter procedure Melissa Pimentel MD -[facility] Work Phone: Start: 01-29-2025 End: 01-29-2025 Patient encounter status Amanda Valerio MD Work Phone: [facility] Work Phone: Start: 01-29-2025 End: 01-29-2025 Periodic preventive med est patient 40-64yrs Amanda Valerio MD Work Phone: [facility] [place] Comment on above: Encounter for gyneco logical examination without abnormal finding (Primary Dx); Vaginitis and vulvovaginitis; Cervicitis and endocervicitis; Acute vaginitis; Bacterial vaginitis; Vaginal odor; Vaginal discharge; Vaginal irritation; Encounter for screening for cervical cancer; Hormone imbalance Start: 01-29-2025 End: 01-29-2025 ambulatory AMANDA VALERIO Not Available Start: 01-25-2025 End: 01-25-2025 Patient encounter procedure Melissa Pimentel MD -MRI [address] Closed Work Phone: Start: 01-25-2025 End: 01-25-2025 ambulatory Melissa Coon MD Work Phone: [facility] Work Phone: Start: 01-22-2025 End: 01-22-2025 Orders Only Melissa Coon MD Work Phone: [facility] Comment on above: Acute pain of left k nee Start: 01-21-2025 End: 01-21-2025 Refill Dalia Dennis [employer] Work Phone: [facility] Comment on above: Acute pain of left k nee Start: 01-14-2025 End: 01-14-2025 ambulatory Willian Jensen MD Facility:[facility] Start: 01-11-2025 End: 01-11-2025 Office outpatient visit 15 minutes Dalia Dennis [employer] Work Phone: [facility] Comment on above: Acute pain of left k nee (Primary Dx) Start: 01-11-2025 End: 01-11-2025 ambulatory MELISSA COON Not Available Start: 01-08-2025 End: 01-08-2025 ambulatory Melissa Coon MD Work Phone: [facility] Work Phone: Start: 01-08-2025 End: 01-08-2025 Patient encounter procedure Melissa Pimentel MD -[facility] Work Phone: Start: 01-02-2025 End: 01-02-2025 Emergency department patient visit Melissa Coon MD Work Phone: -Emergency Room Work Phone: Start: 12-31-2024 End: 12-31-2024 ambulatory Willian Jensen MD Facility:[facility] Start: 12-26-2024 End: 12-26-2024 ambulatory Melissa Coon MD Work Phone: [facility] Work Phone: Start: 12-26-2024 End: 12-26-2024 Patient encounter procedure Yogi Redding MD -[facility] Work Phone: Start: 12-25-2024 Non-patient / Non-visit Robbie vargas MD -[facility] Work Phone: Start: 12-20-2024 End: 12-20-2024 ambulatory MELISSA COON Not Available Start: 12-20-2024 End: 12-20-2024 Office outpatient visit 25 minutes Summer M Workman PA Work Phone: [facility] Comment on above: Bilateral lower extr emity edema (Primary Dx); Hepatomegaly Start: 12-19-2024 End: 12-19-2024 ambulatory SUMMER M WORKMAN Not Available Start: 12-18-2024 End: 12-18-2024 Patient encounter procedure Robbie Dale MD -Sleep Lab Work Phone: Start: 12-18-2024 End: 12-18-2024 ambulatory Melissa Coon MD Work Phone: [facility] Work Phone: Start: 12-17-2024 End: 12-17-2024 ambulatory Willian Jensen MD Facility: [facility] Start: 12-13-2024 End: 12-13-2024 Office outpatient visit [...] End: 12-08-2024 External Result Encounter Omid Quan [employer] Work Phone: [facility] Unsolicited Start: 12-07-2024 End: 12-08-2024 External Result Encounter Omid Quan [employer] Work Phone: [facility] External Department Unsolicited Start: 12-07-2024 End: 12-07-2024 Patient encounter procedure OMID QUAN RN MSN -XRay [facility] Work Phone: Start: 12-07-2024 End: 12-07-2024 ambulatory Melissa Coon MD Work Phone: [facility] Work Phone: Start: 12-06-2024 End: 12-06-2024 Office outpatient visit 25 minutes Omid Quan [employer] Work Phone: [facility] Comment on above: Bilateral lower extr emity edema (Primary Dx); Pulmonary hypertension (HCC); Dyspnea, unspecified type; Snoring; Anasarca; Essential hypertension ; History of anemia; Hypoalbuminemia; Hypoproteinemia (HCC) Start: 12-06-2024 End: 12-06-2024 ambulatory MELISSA COON Not Available Start: 11-29-2024 End: 11-29-2024 ambulatory Santos Johnston Facility:[facility] Start: 11-29-2024 End: 11-29-2024 ambulatory Melissa Coon MD Work Phone: [facility] Work Phone: Start: 11-29-2024 End: 11-29-2024 Patient encounter procedure Robbie Dale MD -[facility] Work Phone: Start: 11-27-2024 End: 11-27-2024 Patient encounter procedure Kenyetta Dove MD -[facility] Work Phone: Start: 11-27-2024 End: 11-27-2024 ambulatory Melissa Coon MD Work Phone: [facility] Work Phone: Start: 11-26-2024 End: 11-26-2024 ambulatory Donya OZUNA Facility:[facility] Start: 11-21-2024 End: 11-21-2024 Patient encounter procedure Dalia Dennis [employer]GER -[facility] Work Phone: Start: 11-21-2024 End: 11-21-2024 ambulatory Melissa Coon MD Work Phone: [facility] Work Phone: Start: 11-21-2024 End: 11-21-2024 ambulatory DALIA DENNIS Not Available Start: 11-21-2024 End: 11-21-2024 Office outpatient visit 25 minutes Dalia Dennis [employer]GER Work Phone: [facility] Comment on above: Bilateral lower extr emity edema (Primary Dx); Essential hypertension ; Pulmonary hypertension (HCC); Cellulitis of right lower extremity; Snoring Start: 11-09-2024 End: 11-09-2024 Patient encounter procedure Tanner Carolinajonathan Loren PA-C -Electrodiagnostics Work Phone: Start: 11-09-2024 End: 11-09-2024 ambulatory Tanner Menendez Facility:[facility] Start: 10-25-2024 End: 10-25-2024 Discharged Recurring Melissa Coon MD Work Phone: [facility]-Infusion Therapy - O/P Work Phone: Start: 10-25-2024 End: 10-25-2024 ambulatory Melissa Coon MD Work Phone: [facility] Work Phone: Start: 10-16-2024 End: 10-16-2024 Orders Only Amanda Valerio MD Work Phone: [facility] Comment on above: Acute vaginitis (Dee Dee abhilash Dx) Start: 10-09-2024 End: 10-09-2024 Patient encounter procedure Melissa Coon MD Work Phone: [facility] [place] Work Phone: Start: 10-09-2024 End: 10-09-2024 Office outpatient visit 25 minutes Summer M Workman PA Work Phone: [facility] Comment on above: Lower extremity milo a (Primary Dx); SOB (shortness of breath) on exertion; Bilateral leg edema; Rosacea Start: 10-09-2024 End: 10-09-2024 ambulatory Melissa Coon MD Work Phone: [facility] Work Phone: Start: 09-03-2024 End: 09-03-2024 ambulatory Melissa Coon MD Work Phone: [facility] Work Phone: Start: 09-03-2024 End: 09-03-2024 Discharged Recurring Chaz Carrillo DO -Physical Therapy [address] [place] Start: 09-03-2024 Registered Recurring Melissa dunne MD Work Phone: [facility]-Physical Therapy [place] Start: 08-29-2024 End: 08-29-2024 Patient encounter procedure Melissa Coon MD Work Phone: [facility] [place] Work Phone: Start: 08-29-2024 End: 08-29-2024 ambulatory Melissa Coon MD Work Phone: [facility] Work Phone: Start: 08-14-2024 End: 08-14-2024 ambulatory KENYETTA DOVE Not Available Start: 08-09-2024 ambulatory Willian Jensen MD Facility:[facility] Start: 08-06-2024 Registered Recurring Melissa dunne MD Work Phone: [facility]-Physical Therapy [place] Start: 08-03-2024 End: 08-03-2024 Patient encounter procedure Melissa Coon MD Work Phone: [facility] [place] Work Phone: Start: 08-03-2024 End: 08-03-2024 ambulatory Melissa Coon MD Work Phone: [facility] Work Phone: Start: 08-01-2024 End: 08-01-2024 ambulatory MELISSA COON Not Available Start: 07-23-2024 End: 07-23-2024 ambulatory Willian Jensen MD Facility:[facility] Start: 07-19-2024 End: 07-19-2024 ambulatory Melissa Coon MD Work Phone: [facility] Work Phone: Start: 07-19-2024 End: 07-19-2024 Patient encounter procedure Melissa Coon MD Work Phone: [facility] Work Phone: Start: 07-14-2024 Non-patient / Non-visit Melissa Coon MD Work Phone: [facility] Work Phone: Start: 06-18-2024 End: 06-18-2024 Patient encounter procedure Melissa Coon MD Work Phone: [facility]-MRI [address] [facility] Work Phone: Start: 06-18-2024 End: 06-18-2024 ambulatory Melissa Coon MD Work Phone: [facility] Work Phone: Start: 06-11-2024 End: 06-11-2024 ambulatory Willian Jensen MD Facility:[facility] Start: 05-22-2024 End: 05-22-2024 ambulatory Eldon Yates Facility:[facility] Start: 05-14-2024 End: 05-14-2024 Patient encounter procedure Melissa Coon MD Work Phone: [facility] [place] Work Phone: Start: 05-07-2024 End: 05-07-2024 Telephone encounter Kenyetta Dove MD Work Phone: [facility] Comment on above: Med Refill Start: 03-26-2024 End: 03-26-2024 ambulatory Willian Jensen MD Facility:[facility] Start: 03-07-2024 End: 03-07-2024 Patient encounter procedure [facility] [address] [facility] Comment on above: Bursitis of other bu rsa of right hip Start: 03-07-2024 End: 03-07-2024 Orders Only Betty Lawrence NP Work Phone: [facility] Comment on above: Bursitis of other bu rsa of right hip (Primary Dx) Start: 02-28-2024 End: 02-28-2024 Bamboo flowsheet Kenyetta Dove MD Work Phone: [facility] Start: 02-28-2024 End: 02-28-2024 Bamboo flowsheet Kenyetta Dove MD Work Phone: [facility] Start: 02-28-2024 End: 02-28-2024 Office outpatient visit 25 minutes Kenyetta Dove MD Work Phone: [facility] Comment on above: Postoperative hypoth yroidism (CMS/HCC) (Primary Dx); Encounter for dietary consultation; Vitamin D deficiency; Class 3 severe obesity without serious comorbidity with body mass index (BMI) of 40.0 to 44.9 in adult, unspecified obesity type (CMS/HCC) Start: 02-28-2024 End: 02-28-2024 ambulatory KENYETTA DOVE Not Available Start: 02-21-2024 End: 02-21-2024 Patient encounter procedure DO Melissa Singh II Work Phone: [facility] Work Phone: Start: 02-21-2024 End: 02-21-2024 ambulatory DO Melissa Singh II Work Phone: [facility] Work Phone: Start: 02-13-2024 End: 02-13-2024 ambulatory Willian Jensen MD Facility:[facility] Start: 02-01-2024 End: 02-01-2024 External Result Encounter Dalia Dennis [employer] Work Phone: [facility] External Department Unsolicited Start: 02-01-2024 End: 02-01-2024 External Result Encounter Dalia Dennis [employer] Work Phone: [facility] External Department Unsolicited Start: 02-01-2024 End: 02-01-2024 Patient encounter procedure DO Melissa Singh II Work Phone: [facility]-Lab [facility] Work Phone: Start: 02-01-2024 End: 02-01-2024 ambulatory DO Melissa J Cromley II Work Phone: [facility] Work Phone: Start: 01-24-2024 End: 01-24-2024 Office outpatient visit 25 minutes Melissa Coon MD Work Phone: [facility] Comment on above: Essential hypertensi on (CMS/HCC) [...] adult (CMS/HCC); BMI 40.0-44.9, adult (CMS/HCC) Start: 01-23-2024 End: 01-23-2024 ambulatory Willian Jensen MD Facility: [facility] Start: 01-20-2024 End: 01-20-2024 ambulatory DO Melissa J Cromley II Work Phone: [facility] Work Phone: Start: 01-20-2024 End: 01-20-2024 Patient encounter procedure DO Melissa Cromley II Work Phone: [facility] Work Phone: Start: 12-05-2023 End: 12-05-2023 ambulatory DO Melissa J Cromley II Work Phone: [facility] Work Phone: Start: 12-05-2023 End: 12-05-2023 Patient encounter procedure DO Melissa Cromley II Work Phone: [facility] [place] Work Phone: Start: 10-03-2023 End: 10-03-2023 ambulatory DO Melissa J Cromley II Work Phone: [facility] Work Phone: Start: 10-03-2023 End: 10-03-2023 Patient encounter procedure DO Melissa Cromley II Work Phone: [facility] Work Phone: Start: 09-20-2023 End: 09-20-2023 Emergency department patient visit DO Melissa Cromley II Work Phone: [facility]-Emergency Room Work Phone: Start: 08-16-2023 End: 08-16-2023 ambulatory DO Melissa J Cromley II Work Phone: [facility] Work Phone: Start: 08-16-2023 End: 08-16-2023 Patient encounter procedure DO Melissa Cromley II Work Phone: [facility] [place] Work Phone: Start: 07-28-2023 End: 07-28-2023 Patient encounter procedure DO Melissa Singh II Work Phone: [facility] [place] Work Phone: Start: 07-22-2023 End: 07-22-2023 Emergency department patient visit DO Melissa Singh II Work Phone: [facility]-Emergency Room Work Phone: Start: 07-08-2023 End: 07-08-2023 ambulatory Roula James Other [facility] Other Start: 07-08-2023 Office outpatient vi sit 15 minutes Roula James [facility] [address] Start: 07-08-2023 Telephone encounter Stephie Brambila MD Work Phone: Rheumatology Start: 06-14-2023 End: 06-14-2023 ambulatory Beny Hoskins Other [facility] Other Start: 06-14-2023 Telephone encounter Beny Marques ck [facility] Start: 05-24-2023 End: 05-24-2023 [facility] Start: 05-19-2023 End: 05-19-2023 ambulatory [facility] Facility:[facility] Start: 05-17-2023 End: 05-18-2023 ambulatory [facility] Facility:[facility] Start: 03-29-2023 End: 03-29-2023 Admission to same day surgery center PHYSICIAN NO [facility] Work Phone: Start: 03-29-2023 End: 03-29-2023 ambulatory PHYSICIAN FILIPE [facility] Work Phone: Start: 03-27-2023 End: 03-27-2023 ambulatory Oscar Reed Other [facility] [employer] Other Start: 03-27-2023 Office outpatient vi sit 15 minutes Oscar Reed [facility] Start: 03-17-2023 End: 03-17-2023 ambulatory PHYSICIAN NO [facility] Work Phone: Start: 03-17-2023 End: 03-17-2023 Patient encounter procedure PHYSICIAN NO [facility] [address] [place] Work Phone: Start: 02-17-2023 End: 02-17-2023 Patient encounter procedure PHYSICIAN NO [facility] [place] Work Phone: Start: 02-17-2023 End: 02-17-2023 ambulatory PHYSICIAN NO [facility] Work Phone: Start: 02-17-2023 Office outpatient vi sit 25 minutes Beny Hoskins [facility] Start: 01-24-2023 Chart Update Donya madera Work Phone: [facility] [address] DO Work Phone: Start: 01-24-2023 End: 01-24-2023 Emergency department patient visit DO Donya Billings Work Phone: [facility] Work Phone: Start: 01-21-2023 End: 01-21-2023 ambulatory DO Donya Billings Work Phone: [facility] Work Phone: Start: 01-21-2023 End: 01-21-2023 Patient encounter procedure DO Donya Billings Work Phone: [facility] [address] Work Phone: Start: 12-30-2022 End: 12-30-2022 Emergency department patient visit DO Donya Billings Work Phone: [facility] Work Phone: Start: 12-29-2022 End: 12-29-2022 ambulatory DO Donyaalfred Billings Work Phone: [facility] Work Phone: Start: 12-29-2022 End: 12-29-2022 Patient encounter procedure DO Donya Billings Work Phone: [facility] Work Phone: Start: 12-20-2022 End: 12-20-2022 Emergency department patient visit DO Donya Billings Work Phone: [facility] Work Phone: Start: 12-08-[address] Phillip Benjamin Facility:[id number] Start: 12-08-2022 [facility], Provider: Phillip Benjamin, Status: Pen, Time: 8:40 AM Donya Billings Work Phone: [facility] 250 DO Work Phone: Start: 12-08-2022 Office outpatient vi sit 25 minutes Donya Billings Work Phone: [facility] 250 DO Work Phone: Start: 12-06-2022 Chart Update Donya madera Work Phone: [facility] 250 DO Work Phone: Start: 11-25-[address] Donya Harvey Awa Facility:[id number] Start: 11-05-2022 End: 11-06-2022 Emergency department patient visit DO Donya Awa Work Phone: [facility] Work Phone: Start: 10-31-2022 Chart Update Donya madera Work Phone: [facility] [address] [place] Work Phone: Start: 10-28-[address] Donya Washington Facility:[id number] Start: 10-13-2022 Office outpatient vi sit 25 minutes Donya Billings Work Phone: [facility] Work Phone: Start: 10-13-[address] [facility] Facility: Start: 10-07-2022 End: 10-08-[address] DONYA BILLIGNS Facility: Start: 10-01-2022 End: 10-02-2022 ambulatory UNKNOWN PROVIDER Facility:[facility] Start: 10-01-2022 End: 10-01-2022 Subsequent hospital visit by physician Shannan [facility] Comment on above: Thoracic spine pain Start: 09-30-2022 Orders Only Javad velez MD Work Phone: [facility] Start: 09-17-2022 End: 09-17-2022 Orders Only Javad Leach MD Work Phone: [facility] Start: 09-17-2022 End: 09-17-2022 Patient encounter procedure DO Donya Billings Work Phone: [facility] [address] Work Phone: Start: 09-02-2022 End: 09-06-2022 ambulatory UNKNOWN PROVIDER Facility:[facility] Start: 09-02-2022 End: 09-06-2022 Office outpatient new 45 minutes Javad Leach MD Work Phone: [facility] Comment on above: Thoracic spine pain (Primary Dx) Start: 09-01-2022 End: 09-01-2022 ambulatory Oliver Mario Other [employer] Other Start: 09-01-2022 Patient encounter procedure Oliver Mario [facility] Start: 08-24-2022 Orders Only Javad velez MD Work Phone: [facility] Start: 08-10-2022 End: 08-10-2022 ambulatory DO Donya Billings Work Phone: [facility] Work Phone: Start: 08-10-2022 End: 08-10-2022 Patient encounter procedure DO Donya Billings Work Phone: [facility] [address] [place] Work Phone: Start: 07-28-2022 [facility]UV, Provider: Phillip Benjamin, Status: Pen, Time: 1:10 PM Donya Billings Work Phone: [facility] 250 DO Work Phone: Start: 07-28-2022 Office outpatient vi sit 25 minutes Donya Billings Work Phone: [facility] 250 DO Work Phone: Start: 07-28-[address] Phillip Benjamin Facility: Start: 07-26-2022 Chart Update Donya madera Work Phone: [facility] 250 DO Work Phone: Start: 07-16-[address] Donya Washington Facility:[id number] Start: 07-15-2022 End: 07-16-[address] ZHANE MANTILLA . Facility:H1 Start: 07-13-2022 End: 07-13-2022 ambulatory Oliver Mario Other [facility] [employer] Other Start: 07-13-2022 Telephone encounter Oliver CABEZAS [facility] Start: 06-21-2022 End: 06-21-2022 Emergency department patient visit DO Donya Billings Work Phone: [facility] Work Phone: Start: 06-15-2022 End: 06-15-2022 ambulatory DO Donya Billings Work Phone: [facility] Work Phone: Start: 06-15-2022 End: 06-15-2022 Patient encounter procedure DO Donya Billings Work Phone: [facility]Electro[facility]ostics Work Phone: Start: 06-04-[address] Phillip Benjamin Facility: Start: 05-12-2022 End: 05-12-2022 ambulatory Oliver Mario Other [facility] [employer] Other Start: 05-12-2022 Patient encounter procedure Oliver Mario [facility] Start: 05-04-2022 End: 05-04-2022 ambulatory DO Donya Billings Work Phone: [facility] Work Phone: Start: 05-04-2022 End: 05-04-2022 Patient encounter procedure DO Donya Billings Work Phone: [facility]MRI [address] Start: 04-28-2022 End: 04-28-2022 ambulatory Oscar Reed Other [facility] [employer] Other Start: 04-28-2022 Office outpatient vi sit 15 minutes Oscar Reed [facility] [address] Start: 04-15-2022 End: 04-16-[address] [...] 04-04-1998 Patient encounter procedure Conversion Yamel Benson [facility] Start: 04-04-1998 Results Only Conversion Edwige Benson [facility] Procedures Date Procedure Procedure Detail Performing Clinician Start: 01-29-2025 GENITAL MYCOPLASMAS CESAR, SWAB Amanda lewis MD Work Phone: Start: 01-29-2025 Iadna chlamydia trachomatis amplified probe tq Amanda Valerio MD Work Phone: Start: 01-29-2025 IGP, APT HPV,RFX 16/18,45 Amanda Valerio MD Work Phone: Start: 01-25-2025 MRI of left knee Melissa Coon MD Work Phone: Start: 01-08-2025 Plain radiography of pelvis Melissa [...] 12-07-2024 C-reactive protein high sensitivity Omid Quan [employer] Work Phone: Start: 12-07-2024 Comprehensive metabolic panel Omid Quan [employer] Work Phone: Start: 12-07-2024 Urine albumin quantitative Omid chiu [employer] Work Phone: Start: 11-29-2024 X-ray of lumbar spine, two or three views Melisas Coon MD Work Phone: Start: 10-25-2024 Adrenocorticotropic hormone measurement Melissa Coon MD Work Phone: Comment on above: ACTH reference interval for samples helene ected between 7 and10 AM.Performed at: [address] [id number] Director: Ramirez Ca PhD, Phone: [phone] Start: 06-18-2024 XR pre/post mri xray Melissa Coon MD Work Phone: Start: 06-18-2024 MR lumbar spine wo con Melissa Coon MD Work Phone: Start: 05-14-2024 Quick Strep (POC) Melissa Coon MD Work Phone: Start: 02-01-2024 Complete blood count with white cell differential, automated Dalia Frances Risaliti [employer] Work Phone: Start: 02-01-2024 Urine albumin quantitative Dalia Frances Risali ti [employer] Work Phone: Start: 02-01-2024 Urnls dip stick/tablet rgnt non-auto w/o micrscp Dalia R Risaliti [employer] Work Phone: Start: 01-20-2024 End: 01-20-2024 Screening [...] Start: 12-20-2022 Plain chest X-ray DO Donya Awa Work Phone: Start: 11-25-2022 Echocardiography Donya Billings Work Phone: Start: 11-05-2022 Plain chest X-ray DO Donya Awa Work Phone: Start: 10-01-2022 CT NEURO IMAGE IMPORT Javad Leach MD Work Phone: Start: 09-17-2022 Computed tomography of thoracic spine without contrast DO Donya Awa Work Phone: Start: 06-21-2022 CT of chest without contrast DO Donya Awa Work Phone: Start: 06-21-2022 CT of abdomen and pelvis without contrast DO Donya Awa Work Phone: Start: 05-04-2022 MR thoracic spine wo con DO Donya Elfego madera Work Phone: Start: 05-04-2022 XR pre/post mri xray DO oDnya Billings Work Phone: Start: 08-21-2012 Colonoscopy Melissa Coon MD Work Phone: Start: 04-04-1998 CONVERTED CYTOLOGY TRIAL PARALEGAL Conversion Yamel Benson Start: 04-04-1998 Microscopic observation [Identifier] in Cervix by Cyto stain Tanner SALAS Work Phone: section Donya mckenzie Work Phone: H/O: section Previous c esarean section DO Melissa Singh II Work Phone: H/O: hysterectomy H/O: hysterectomy DO Calli Singh II Work Phone: History Of Prior Surgery Leslie Billings Work Phone: History of thyroidectomy S/P thyroidectom y DO Melissa Singh II Work Phone: Hysterectomy Donya Ashraf Awa Work Phone: Procedure on back Donya Ashraf Awa Work Phone: Thyroidectomy Donya madera Work Phone: Total colonoscopy Donya Ashraf Awa Work Phone: Plan of Treatment Date Care Activity Detail Author Start: 01-29-2030 Screening for malignant neoplasm of cervix [facility] Start: 08-11-2027 Cholesterol [Mass/volume] in Serum or Plasma Cholesterol [facility] Start: 2027 Shingles (RZV) Vaccine (1 of 2) Shingles (RZV) Vaccine (1 of 2) [facility] Start: 05-19-2026 Diabetes Screening Diabetes Screening [facility] Start: 01-29-2026 Medicare Annual Wellness (AWV) Medicare Annual Wellness (AWV) [facility] Start: 12-13-2025 Medicare Annual Wellness (AWV) Medicare Annual Wellness (AWV) [facility] Start: 02-26-2025 End: 02-26-2025 Patient encounter procedure 02/26/2025 10:30 AM EDT Office Visit [facility] [address] [place] [phone] Kenyetta Dove MD [address] [place] [address] [facility] Start: 02-18-2025 [facility] Start: 02-12-2025 End: 02-12-2025 Patient encounter procedure 02/12/2025 2:45 PM EDT Office Visit [facility] [address] [place] [phone] Amanda Valerio MD [address] [place] [address] [facility] [place] [facility] Start: 02-12-2025 End: 02-12-2025 Professional / ancillary services management 02/12/2025 2:00 PM EDT Ancillary Procedure [facility] [place] [facility] [address] [place] [address] [facility] [place] [facility] Start: 02-12-2025 End: 02-12-2025 Patient encounter procedure [facility] Start: 02-06-2025 End: 02-06-2025 Patient encounter procedure [facility] Start: 01-29-2025 End: 01-29-2026 Insulin, fasting Insulin, fasting Lab Routine Hormone imbalance Expected: 01/29/2025 (Approximate), Expires: 01/29/2026 [facility] Comment on above: Expected: 01/29/2025 (Approximate), Expi res: 01/29/2026 Start: 01-29-2025 End: 01-29-2026 Triiodothyronine (T3) [Mass/volume] in Serum or Plasma T3 Lab Routine Hormone imbalance Expected: 01/29/2025 (Approximate), Expires: 01/29/2026 [facility] Comment on above: Expected: 01/29/2025 (Approximate), Expi res: 01/29/2026 Start: 01-29-2025 End: 01-29-2026 Triiodothyronine (T3) Free [Mass/volume] in Serum or Plasma T3, free Lab Routine Hormone imbalance Expected: 01/29/2025 (Approximate), Expires: 01/29/2026 [facility] Comment on above: Expected: 01/29/2025 (Approximate), Expi res: 01/29/2026 Start: 01-28-2025 Influenza vaccination [facility] Start: 01-19-2025 Screening for malignant neoplasm of breast Mammogram [facility] Start: 12-20-2024 End: 12-20-2024 Patient encounter procedure 12/20/2024 3:00 PM EDT Office Visit [facility] [address] [place] [address] [facility] Start: 12-19-2024 End: 12-19-2024 Professional / ancillary services management 12/19/2024 11:45 AM EDT Ancillary Procedure [facility] [address] [place] [address] [facility] Start: 12-07-2024 End: 01-05-2025 C reactive protein [Mass/volume] in Serum or Plasma by High sensitivity method High sensitivity CRP Lab Routine Bilateral lower extremity edema Pulmonary hypertension (HCC) Dyspnea, unspecified type Snoring Anasarca Essential hypertension History of anemia Hypoalbuminemia Hypoproteinemia (HCC) Expected: 12/07/2024 (Approximate), Expires: 01/05/2025 [facility] Comment on above: Expected: 12/07/2024 (Approximate), Expi res: 01/05/2025 Start: 12-07-2024 End: 01-05-2025 Comprehensive metabolic 2000 panel - Serum or Plasma Comprehensive metabolic panel Lab Routine Bilateral lower extremity edema Pulmonary hypertension (HCC) Dyspnea, unspecified type Snoring Anasarca Essential hypertension History of anemia Hypoalbuminemia Hypoproteinemia (HCC) Expected: 12/07/2024 (Approximate), Expires: 01/05/2025 [facility] Comment on above: Expected: 12/07/2024 (Approximate), Expi res: 01/05/2025 Start: 12-07-2024 End: 01-05-2025 Erythrocyte sedimentation rate Sedimentation rate, automated Lab Routine Bilateral lower extremity edema Pulmonary hypertension (HCC) Dyspnea, unspecified type Snoring Anasarca Essential hypertension History of anemia Hypoalbuminemia Hypoproteinemia (HCC) Expected: 12/07/2024 (Approximate), Expires: 01/05/2025 [facility] Work Phone: Comment on above: Expected: 12/07/2024 (Approximate), Expi res: 01/05/2025 Start: 12-07-2024 End: 01-05-2025 FREE K+L LT CHAINS,QN,S FREE K+L LT CHAINS,QN,S Lab Routine Bilateral lower extremity edema Pulmonary hypertension (HCC) Dyspnea, unspecified type Snoring Anasarca Essential hypertension History of anemia Hypoalbuminemia Hypoproteinemia (HCC) Expected: 12/07/2024 (Approximate), Expires: 01/05/2025 [facility] Comment on above: Expected: 12/07/2024 (Approximate), Expi res: 01/05/2025 Start: 12-07-2024 End: 01-05-2025 Hemoglobin a1c with eag Hemoglobin a1c with eag Lab Routine Bilateral lower extremity edema Pulmonary hypertension (HCC) Dyspnea, unspecified type Snoring Anasarca Essential hypertension History of anemia Hypoalbuminemia Hypoproteinemia (HCC) Expected: 12/07/2024 (Approximate), Expires: 01/05/2025 [facility] Comment on above: Expected: 12/07/2024 (Approximate), Expi res: 01/05/2025 Start: 12-07-2024 End: 01-05-2025 Magnesium [Mass/volume] in Serum or Plasma Magnesium Lab Routine Bilateral lower extremity edema Pulmonary hypertension (HCC) Dyspnea, unspecified type Snoring Anasarca Essential hypertension History of anemia Hypoalbuminemia Hypoproteinemia (HCC) Expected: 12/07/2024 (Approximate), Expires: 01/05/2025 [facility] Comment on above: Expected: 12/07/2024 (Approximate), Expi res: 01/05/2025 Start: 12-07-2024 End: 01-05-2025 Microalbumin/Creatinine panel in random Urine Microalbumin / creatinine urine ratio Lab Routine Bilateral lower extremity edema Pulmonary hypertension (HCC) Dyspnea, unspecified type Snoring Anasarca Essential hypertension History of anemia Hypoalbuminemia Hypoproteinemia (HCC) Expected: 12/07/2024 (Approximate), Expires: 01/05/2025 [facility] Comment on above: Expected: 12/07/2024 (Approximate), Expi res: 01/05/2025 Start: 12-07-2024 End: 01-05-2025 Nuclear Ab [Titer] in Serum by Immunofluorescence WILL Lab Routine Bilateral lower extremity edema Pulmonary hypertension (HCC) Dyspnea, unspecified type Snoring Anasarca Essential hypertension History of anemia Hypoalbuminemia Hypoproteinemia (HCC) Expected: 12/07/2024 (Approximate), Expires: 01/05/2025 [facility] Comment on above: Expected: 12/07/2024 (Approximate), Expi res: 01/05/2025 Start: 12-07-2024 End: 01-05-2025 Protein electrophoresis, serum Protein electrophoresis, serum Lab Routine Bilateral lower extremity edema Pulmonary hypertension (HCC) Dyspnea, unspecified type Snoring Anasarca Essential hypertension History of anemia Hypoalbuminemia Hypoproteinemia (HCC) Expected: 12/07/2024 (Approximate), Expires: 01/05/2025 [facility] Comment on above: Expected: 12/07/2024 (Approximate), Expi res: 01/05/2025 Start: 12-07-2024 End: 01-05-2025 Rheumatoid factor [Units/volume] in Serum or Plasma [facility] Comment on above: Expected: 12/07/2024 (Approximate), Expi res: 01/05/2025 Start: 12-07-2024 End: 01-05-2025 Urinalysis complete panel - Urine [facility] Comment on above: Expected: 12/07/2024 (Approximate), Expi res: 01/05/2025 Start: 12-07-2024 [facility] Start: 12-03-2024 End: 01-21-2025 Basic metabolic 1998 panel - Serum or Plasma Basic metabolic panel Lab Routine Bilateral lower extremity edema Expected: 12/03/2024, Expires: 01/21/2025 [facility] Comment on above: Expected: 12/03/2024, Expires: Start: 11-22-2024 End: 12-21-2024 Basic metabolic 1998 panel - Serum or Plasma Basic metabolic panel Lab Routine Bilateral lower extremity edema Expected: 11/22/2024 (Approximate), Expires: 12/21/2024 [facility] Work Phone: Comment on above: Expected: 11/22/2024 (Approximate), Expi res: 12/21/2024 Start: 11-22-2024 End: 12-21-2024 Natriuretic peptide B [Mass/volume] in Blood B-type natriuretic peptide Lab Routine Bilateral lower extremity edema Expected: 11/22/2024 (Approximate), Expires: 12/21/2024 [facility] Comment on above: Expected: 11/22/2024 (Approximate), Expi res: 12/21/2024 Start: 10-25-2024 Adrenocorticotropic hormone measurement [facility] Start: 10-25-2024 [facility] Start: 10-10-2024 End: 01-07-2025 Comprehensive metabolic 2000 panel - Serum or Plasma Comprehensive metabolic panel Lab Routine SOB (shortness of breath) on exertion Bilateral leg edema Expected: 10/10/2024 (Approximate), Expires: 01/07/2025 [facility] Comment on above: Expected: 10/10/2024 (Approximate), Expi res: 01/07/2025 Start: 10-10-2024 End: 01-07-2025 Microalbumin/Creatinine panel in random Urine Microalbumin / creatinine urine ratio Lab Routine SOB (shortness of breath) on exertion Bilateral leg edema Expected: 10/10/2024 (Approximate), Expires: 01/07/2025 [facility] Comment on above: Expected: 10/10/2024 (Approximate), Expi res: 01/07/2025 Start: 10-10-2024 End: 01-07-2025 Natriuretic peptide B [Mass/volume] in Blood B-type natriuretic peptide Lab Routine SOB (shortness of breath) on exertion Bilateral leg edema Expected: 10/10/2024 (Approximate), Expires: 01/07/2025 [facility] Comment on above: Expected: 10/10/2024 (Approximate), Expi res: 01/07/2025 Start: 08-01-2024 End: 08-01-2024 Patient encounter procedure 08/01/2024 1:00 PM EST [facility] [address] [place] [phone] Melissa Coon MD [address] [place] [address] [facility] Start: 06-18-2024 XR pre/post mri xray XR pre/post mri xray [facility] Start: 06-18-2024 [facility] Start: 06-18-2024 MR lumbar spine wo con MR lumbar spine wo con [facility] Start: 06-18-2024 MR Lumbar spine WO contrast [facility] Start: 02-28-2024 End: 02-27-2025 Thyrotropin [Units/volume] in Serum or Plasma TSH Lab Routine Postoperative hypothyroidism (CMS/HCC) Expected: 02/28/2024 (Approximate), Expires: 02/27/2025 [facility] Comment on above: Expected: 02/28/2024 (Approximate), Expi res: 02/27/2025 Start: 02-28-2024 End: 02-27-2025 Thyroxine (T4) free [Mass/volume] in Serum or Plasma T4, free Lab Routine Postoperative hypothyroidism (CMS/HCC) Expected: 02/28/2024 (Approximate), Expires: 02/27/2025 [facility] Comment on above: Expected: 02/28/2024 (Approximate), Expi res: 02/27/2025 Start: 02-28-2024 End: 02-27-2025 Triiodothyronine (T3) Free [Mass/volume] in Serum or Plasma T3, free Lab Routine Postoperative hypothyroidism (CMS/HCC) Expected: 02/28/2024 (Approximate), Expires: 02/27/2025 [facility] Work Phone: Comment on above: Expected: 02/28/2024 (Approximate), Expi res: 02/27/2025 Start: 02-28-2024 End: 02-28-2024 Patient encounter procedure 02/28/2024 9:50 AM EDT Office Visit [facility] [address] [place] [address] Kenyetta Dove MD [address] [place] [address] Arrived [facility] Comment on above: Arrived Start: 02-20-2024 End: 02-20-2024 Patient encounter procedure 02/20/2024 10:30 AM EDT Office Visit [facility] [address] [place] [address] Kenyetta Dove MD [address] [place] [address] [facility] Start: 01-29-2024 Influenza vaccination Influenza Vaccine (#1) [facility] Start: 01-24-2024 End: 01-23-2025 CBC W Auto Differential panel - Blood CBC and differential Lab Routine History of anemia Expected: 01/24/2024 (Approximate), Expires: 01/23/2025 [facility] Work Phone: Comment on above: Expected: 01/24/2024 (Approximate), Expi res: 01/23/2025 Start: 01-24-2024 End: 01-23-2025 Comprehensive metabolic 2000 panel - Serum or Plasma Comprehensive metabolic panel Lab Routine Essential hypertension (CMS/HCC) Expected: 01/24/2024 (Approximate), Expires: 01/23/2025 [facility] Comment on above: Expected: 01/24/2024 (Approximate), Expi res: 01/23/2025 Start: 01-24-2024 End: 01-23-2025 Ferritin [Mass/volume] in Serum or Plasma Ferritin Lab Routine History of anemia Expected: 01/24/2024 (Approximate), Expires: 01/23/2025 [facility] Comment on above: Expected: 01/24/2024 (Approximate), Expi res: 01/23/2025 Start: 01-24-2024 End: 01-23-2025 Iron and Iron binding capacity panel - Serum or Plasma Iron and TIBC Lab Routine History of anemia Expected: 01/24/2024 (Approximate), Expires: 01/23/2025 [facility] Comment on above: Expected: 01/24/2024 (Approximate), Expi res: 01/23/2025 Start: 01-24-2024 End: 01-23-2025 Lipid 1996 panel - Serum or Plasma Lipid panel Lab Routine Essential hypertension (CMS/HCC) Expected: 01/24/2024 (Approximate), Expires: 01/23/2025 [facility] Comment on above: Expected: 01/24/2024 (Approximate), Expi res: 01/23/2025 Start: 01-24-2024 End: 01-23-2025 Microalbumin/Creatinine panel in random Urine Microalbumin / creatinine urine ratio Lab Routine Essential hypertension (CMS/HCC) Expected: 01/24/2024 (Approximate), Expires: 01/23/2025 [facility] [facility] Comment on above: Expected: 01/24/2024 (Approximate), Expi res: 01/23/2025 Start: 01-24-2024 End: 01-23-2025 Thyrotropin [Units/volume] in Serum or Plasma TSH Lab Routine Acquired hypothyroidism (CMS/HCC) Expected: 01/24/2024 (Approximate), Expires: 01/23/2025 [facility] Comment on above: Expected: 01/24/2024 (Approximate), Expi res: 01/23/2025 Start: 01-24-2024 End: 01-23-2025 Urinalysis complete panel - Urine Urinalysis with microscopic Lab Routine Essential hypertension (CMS/HCC) Expected: 01/24/2024 (Approximate), Expires: 01/23/2025 [facility] Comment on above: Expected: 01/24/2024 (Approximate), Expi res: 01/23/2025 Start: 12-30-2023 Screening for malignant neoplasm of breast [facility] Start: 11-08-2023 Screening for malignant neoplasm of cervix [facility] Start: 07-22-2023 Bacteria identified in Blood by Culture [facility] Start: 04-20-2023 FUV, Provider: Phillip Benjamin, Status: Pen, Time: 3:00 PM FUV, Provider: Phillip Benjamin, Status: Pen, Time: 3:00 PM [facility] [address] DO Work Phone: Start: 03-29-2023 [facility] Start: 03-29-2023 End: 03-29-2023 [facility] Start: 01-28-2023 Influenza vaccination [facility] Start: 01-24-2023 Duplex scan of lower limb veins US venous duplex LE LT [facility] Start: 01-24-2023 US Lower extremity vein - left [facility] Start: 12-31-2022 Medicare Annual Wellness (AWV) Medicare Annual Wellness (AWV) [facility] Start: 12-30-2022 CT of head without contrast CT head/brain wo con [facility] Start: 12-30-2022 CT Unspecified body region WO contrast [facility] Start: 12-08-2022 FUV, Provider: Phillip Benjamin, Status: Pen, Time: 8:40 AM FUV, Provider: Phillip Benjamin, Status: Pen, Time: 8:40 AM [facility] [address] [place] Work Phone: Start: 12-02-2022 FUV, Provider: Phillip Benjamin, Status: Pen, Time: 3:00 PM FUV, Provider: Phillip Benjamin, Status: Pen, Time: 3:00 PM [facility] [address] DO Work Phone: Start: 11-25-2022 ECHO, Provider: [facility] ULTRASOUND 01,[id number], Status: Pen, Time: 7:45 AM ECHO, Provider: [facility] ULTRASOUND 01,[id number], Status: Pen, Time: 7:45 AM [facility] [address] [place] Work Phone: Start: 09-30-2022 End: 10-01-2023 DOWNLOAD POWERSHARE IMAGES TO [facility] DOWNLOAD POWERSHARE IMAGES TO [facility] Imaging Routine Thoracic spine pain Expected: 09/30/2022, Expires: 10/01/2023 [employer] Work Phone: Comment on above: Expected: 09/30/2022, Expires: Start: 09-17-2022 End: 09-18-2023 DOWNLOAD POWERSHARE IMAGES TO EPIC DOWNLOAD POWERSHARE IMAGES TO EPIC Imaging Routine Thoracic spine pain Expected: 09/17/2022, Expires: 09/18/2023 [employer] Work Phone: Comment on above: Expected: 09/17/2022, Expires: 4 Start: 09-06-2022 End: 09-07-2023 CT Thoracic spine WO contrast CT T-SPINE W/O CONTRAST Imaging Within 1 week Thoracic spine pain Expected: 09/06/2022, Expires: 09/07/2023 [employer] Work Phone: Comment on above: Expected: 09/06/2022, Expires: 4 Start: 09-02-2022 End: 09-02-2022 Patient encounter procedure 09/02/2022 Office Visit Orthopedics Javad Leach MD [address] [place], [place] [id number] [facility] Start: 08-24-2022 End: 08-25-2023 DOWNLOAD POWERSHARE IMAGES TO EPIC DOWNLOAD POWERSHARE IMAGES TO EPIC Imaging Routine Cervical spondylosis with myelopathy Expected: 08/24/2022, Expires: 08/25/2023 [email or web address] Work Phone: Comment on above: Expected: 08/24/2022, Expires: Start: 08-21-2022 Screening for malignant neoplasm of colon [facility] Start: 08-10-2022 [facility] Start: 2022 Cholesterol [Mass/volume] in Serum or Plasma Cholesterol [facility] Start: 2022 Lipid panel Lipid Screening [facility] Start: 2022 Screening for malignant neoplasm of colon [facility] Start: 02-27-2022 Influenza vaccination Influenza Vaccine (#1) [facility] Start: 01-29-2020 Influenza vaccination INFLUENZA (#1) [facility] Start: 2017 Mammography MAMMOGRAM [facility] Start: 2017 Screening for malignant neoplasm of breast Mammography [facility] Start: 11-28-2015 Annual wellness visit Annual Wellness Visit (G0438) [facility] Start: 2007 HPV TESTING HPV TESTING [facility] Start: 2007 Screening for malignant neoplasm of cervix HPV Testing [facility] Start: 04-04-2001 Screening for malignant neoplasm of cervix Pap Smear [facility] Start: 1998 PAP TESTING PAP TESTING [facility] Start: 1998 Screening for malignant neoplasm of cervix [facility] Start: 1996 Urine microalbumin profile DTAP,TDAP,TD (1 - Tdap) [facility] Start: 1995 ANNUAL PCP TEAM CHRONIC DISEASE VISIT ANNUAL PCP TEAM CHRONIC DISEASE VISIT [facility] Start: 1995 HEPATITIS C SCREENING HEPATITIS C SCREENING [facility] Start: 1995 Hepatitis C screening [facility] Start: 1995 HIV SCREENING HIV SCREENING [facility] Start: 1995 HIV screening HIV Screening [facility] Start: 1995 Tetanus + diphtheria + acellular pertussis vaccine (product) Tdap Booster [facility] Start: 1992 HIV screening HIV Test [facility] Start: 1988 Urine microalbumin profile DTaP,Tdap,Td Vaccine (4 - Tdap) [facility] Start: 1977 COVID-19 Vaccine (#1) COVID-19 Vaccine (#1) [facility] Start: 1977 Screening for malignant neoplasm of colon [facility] 25-hydroxyvitamin D2 [Mass/volume] in Serum or Plasma [facility] 25-hydroxyvitamin D3 [Mass/volume] in Serum or Plasma [facility] 25-Hydroxyvitamin D3+25-Hydroxyvitamin D2 [Mass/volume] in Serum or Plasma [facility] Albumin [Mass/volume ] in Serum or Plasma [facility] Albumin [Mass/volume ] in Serum or Plasma [facility] Albumin/Globulin ratio [facility] Albumin/Globulin ratio [facility] Borrelia burgdorferi Ab [Interpretation] in Serum [facility] Borrelia burgdorferi IgG Ab [Presence] in Serum or Plasma by Immunoassay [facility] Borrelia burgdorferi IgG+IgM Ab [Presence] in Serum by Immunoassay [facility] Borrelia burgdorferi IgM Ab [Presence] in Serum or Plasma by Immunoassay [facility] Cefuroxime free [Mass/volume] in Serum or Plasma [facility] Comprehensive metabo lic 2000 panel - Serum or Plasma Comprehensive metabolic panel Lab Routine 02/01/2024 10:15 AM EDT [facility] [employer] Work Phone: CT Abdomen and Pelvi s W contrast IV CT abdomen pelvis w IV contrast Imaging Routine Bilateral lower extremity edema Pain of upper abdomen Ordered: 12/13/2024 [facility] Work [facility]: Comment on above: Ordered: 12/13/2024 Electrophoresis: [id number] [facility] Electrophoresis: [id number] [facility] Electrophoresis: [id number] [facility] Electrophoresis: [id number] [facility] Electrophoresis: beta-globulin [facility] Electrophoresis: beta-globulin [facility] Electrophoresis: raisa ma globulin [facility] Electrophoresis: raisa ma globulin [facility] Estradiol Estradiol Lab Ro utine Hormone imbalance Ordered: 01/29/2025 [facility] Comment on above: Ordered: 01/29/2025 Estrogen [Mass/volum e] in Serum or Plasma [facility] Follicle stimulating hormone Follicle stimulating hormone Lab Routine Hormone imbalance Ordered: 01/29/2025 [facility] Comment on above: Ordered: 01/29/2025 Globulin [Mass/volum e] in Serum [facility] Globulin [Mass/volum e] in Serum [facility] Hemoglobin A1c/Hemoglobin.total in Blood Hemoglobin A1c Lab Routine Hormone imbalance Ordered: 01/29/2025 [facility] Comment on above: Ordered: 01/29/2025 Homogenous nuclear A b pattern [Titer] in Serum [facility] Iron and Iron bindin g capacity panel - Serum or Plasma Iron and TIBC Lab Routine 02/01/2024 10:15 AM EDT [facility] [place] light chains.f ree [Mass/volume] in Serum [facility] [place] light chains.free/Lambda light chains.free [Mass Ratio] in [facility] Lambda light chains. free [Mass/volume] in Serum or Plasma [facility] Lipid 1996 panel - S zakia or Plasma Lipid panel Lab Routine 02/01/2024 10:15 AM EDT [facility] Luteinizing hormone Luteinizing hormone Lab Routine Hormone imbalance Ordered: 01/29/2025 [facility] Comment on above: Ordered: 01/29/2025 Lutropin [Units/volu me] in Serum or Plasma [facility] MR Knee - left WO contrast F [facility] Nuclear Ab [Titer] in Serum [facility] Patient Education [facility] Work Phone: Patient referral [facility] Work Phone: Progesterone Progesterone Lab Routine Hormone imbalance Ordered: 01/29/2025 [facility] Comment on above: Ordered: 01/29/2025 Progesterone [Mass/v olume] in Serum or Plasma [facility] Protein [Mass/volume ] in Serum or Plasma [facility] Protein [Mass/volume ] in Serum or Plasma [facility] Rheumatoid factor [Units/volume] in Serum or Plasma [facility] Testosterone, free, total Testos terone, free, total Lab Routine Hormone imbalance Ordered: 01/29/2025 [facility] [employer] Comment on above: Ordered: 01/29/2025 Thyrotropin [Units/v olume] in Serum or Plasma TSH Lab Routine Hormone imbalance Ordered: 01/29/2025 [facility] [employer] Work Phone: Comment on above: Ordered: 01/29/2025 Thyroxine (T4) free [Mass/volume] in Serum or Plasma T4, free Lab Routine Hormone imbalance Ordered: 01/29/2025 [facility] [employer] Comment on above: Ordered: 01/29/2025 US Heart Transthoracic Transthor acic echo (TTE) complete Echocardiography Routine Lower extremity edema SOB (shortness of breath) on exertion Ordered: 10/09/2024 [facility] [employer] Work Phone: Comment on above: Ordered: 10/09/2024 XR Chest 2 Views XR chest 2 view s Imaging Routine Bilateral lower extremity edema Pulmonary hypertension (HCC) Dyspnea, unspecified type Snoring Anasarca Essential hypertension History of anemia Hypoalbuminemia Hypoproteinemia (HCC) Ordered: 12/06/2024 [facility] [employer] Comment on above: Ordered: 12/06/2024 [facility] Immunizations Immunization Date Immunization Notes Care Provider Watson deleon 06-05-2001 hepatitis B vaccine, adult dosage [facility] S A[facility] Work Phone: 12-28-2000 hepatitis B vaccine, adult dosage Donya S Awa Work Phone: [facility] Work Phone: 11-21-2000 measles, mumps and rubella virus vaccine [facility]a S [facility] Phone: [facility] Work Phone: 11-14-2000 hepatitis B vaccine, adult dosage [facility] S [facility] Phone: [facility] Work Phone: 01-07-1983 measles, mumps and rubella virus vaccine Donya Billings Work Phone: [facility] DO Work Phone: 10-11-1979 diphtheria, tetanus toxoids and acellular pertussis vaccine, unspecified formulation [facility]: [facility] Work Phone: 10-11-1979 poliovirus vaccine, inactivated Donya Billings Work Phone: [facility] DO Work Phone: 08-01-1979 diphtheria, tetanus toxoids and pertussis vaccine Donya Billings Work Phone: [facility] DO Work Phone: 08-01-1979 poliovirus vaccine, inactivated Donya Billings Work Phone: [facility] Work Phone: 04-18-1979 diphtheria, tetanus toxoids and pertussis vaccine Donay Billings Work Phone: [facility] Work Phone: 05-13-1978 diphtheria, tetanus toxoids and pertussis vaccine [facility]a Billings [facility]: [facility] Work Phone: 05-13-1978 poliovirus vaccine, inactivated Donya Billings Work Phone: [facility] Work Phone: 1977 poliovirus vaccine, inactivated Donya Billings Work Phone: [facility] DO Work Phone: Payers Date Payer Category Payer Self-pay [id number] 2022 Medicaid [id number] 2013 Medicare [id number] 1977 Unknown [id number] 2.16. 840.1.715037.3.579.2.732 1977 Unknown [id number] 2.16. 840.1.687110.3.579.2.732 1977 Unknown [id number] 2.16.84 0.1.687961.3.579.2.593 1977 Unknown [id number] 2.16.84 0.1.258072.3.579.2.593 1977 Unknown [id number] 2.16.84 0.1.026703.3.579.2.593 1977 Unknown [id number] 2.16.84 0.1.371203.3.579.2.593 1977 Unknown [id number] 2.16.84 0.1.084112.3.579.2.593 1977 Unknown [id number] 2.16.84 0.1.977085.3.579.2.593 1977 Unknown [id number] 2.16.84 0.1.586796.3.579.2.593 1977 Unknown [id number] 2.16.84 0.1.156396.3.579.2.593 1977 Unknown [id number] 2.16.8 40.1.048916.3.579.2.1068 1977 Unknown [id number] 2.16.8 40.1.099688.3.579.2.1068 1977 Unknown [id number] 2.16. 840.1.816581.3.579.2.356 1977 Unknown [id number] 2.16. 840.1.171340.3.579.2.356 1977 Unknown [id number] 2.16. 840.1.267861.3.579.2.356 1977 Unknown [id number] 2.16. 840.1.027999.3.579.2.356 1977 Unknown [id number] 2.16. 840.1.145015.3.579.2.356 1977 Unknown [id number] 2.16.8 40.1.964224.3.579.2.727 1977 Unknown [id number] 2.16.8 40.1.575037.3.579.2.727 1977 Unknown [id number] 2.16.8 40.1.063910.3.579.2.727 1977 Unknown [id number] 2.16. 840.1.458086.3.579.2.196 1977 Unknown [id number] 2.16. 840.1.014787.3.579.2.196 1977 Unknown [id number] 2.16. 840.1.555559.3.579.2.196 1977 Unknown [id number] 2.16. 840.1.739139.3.579.2.196 1977 Unknown [id number] 2.16. 840.1.596446.3.579.2.196 1977 Unknown [id number] 2.16. 840.1.466198.3.579.2.196 1977 Unknown [id number] 2.16. 840.1.632938.3.579.2.196 1977 Unknown [id number] 2.16. 840.1.124241.3.579.2.196 1977 Unknown [id number] 2.16. 840.1.196361.3.579.2.196 1977 Unknown [id number] 2.16.8 40.1.356998.3.579.2.1259 1977 Unknown [id number] 2.16.8 40.1.382310.3.579.2.9 1977 Unknown [id number] 2.16.8 40.1.886804.3.579.2.1258 1977 Unknown [id number] 2.16.8 40.1.831774.3.579.2.1258 1977 Unknown [id number] 2.16.8 40.1.674392.3.579.2.1258 1977 Unknown [id number] 2.16.8 40.1.915991.3.579.2.1258 1977 Unknown [id number] 2.16.8 40.1.204653.3.579.2.1258 1977 Unknown [id number] 2.16.84 0.1.118959.3.579.2.1258 1977 Unknown [id number] 2.16.84 0.1.896640.3.579.2.1258 1977 Unknown [id number] 2.16.84 0.1.831043.3.579.2.1258 1977 Unknown [id number] 2.16.84 0.1.369832.3.579.2.1258 1977 Unknown [id number] 2.16.84 0.1.975705.3.579.2.1259 1959 Medicaid [id number] 2. 16.840.1.419380.19 1959 Medicare [id number] 2.1 6.840.1.451778.19 Unknown Unknown [id number] 2.16.8 40.1.518859.3.579.2.531 Unknown [id number] 2.16.8 40.1.755029.3.579.2.531 Unknown [id number] 2.16.8 40.1.148154.3.579.2.531 Unknown [id number] 2.16.8 40.1.853250.3.579.2.531 Unknown [id number] 2.16.8 40.1.219426.3.579.2.531 Unknown [id number] 2.16.8 40.1.276800.3.579.2.531 Unknown [id number] 2.16.8 40.1.967204.3.579.2.531 Unknown [id number] 2.16.8 40.1.652042.3.579.2.531 Unknown [id number] 2.16.8 40.1.915418.3.579.2.531 Unknown [id number] 2.16.8 40.1.905810.3.579.2.531 Unknown [id number] 2.16.8 40.1.887471.3.579.2.531 Unknown [id number] 2.16.8 40.1.476980.3.579.2.531 Unknown [id number] 2.16.8 40.1.422566.3.579.2.531 Unknown [id number] 2.16.8 40.1.704320.3.579.2.531 Unknown [id number] 2.16.8 40.1.670824.3.579.2.531 Unknown [id number] 2.16.8 40.1.402616.3.579.2.531 Unknown [id number] 2.16.8 40.1.353281.3.579.2.531 Social History Date Type Detail Facility Tobacco smoking status WIIS Unknown if ever smoked [facility] Start: 1975 Sex Assigned At Not on file [facility] Start: 05-17-2023 End: 12-13-2024 Sex Assigned At Slated Other Start: 11-19-2019 End: 01-02-2025 Tobacco smoking status WIIS Ex-smoker (finding) [facility] Start: 1975 Sex Assigned At Female [facility] Start: 06-21-2022 End: 06-21-2022 Tobacco smoking status WIIS Never smoked tobacco (finding) [facility] Start: 05-17-2023 End: 12-13-2024 Current smoker Current smoker 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 [facility] Start: 06-19-2024 End: 10-25-2024 Sex Female (finding) [facility] NEGATED: Highlighted row [facility] NEGATED: Highlighted row Not [facility] NEGATED: Highlighted row N [facility] Goals Date Patient Goal Desired Activity /State Functional Status Date Assessment Result Facility 12-13-2024 Patient Health [facility] ionnaire 2 item (PHQ-2) [Reported] [facility] Clinical Notes 11-12-2021 to 01-29-2025 Amanda Valerio MD - 01/29/2025 3:15 PM EDTTelephone Encounter - Liliya Escobedo LPN - 01/21/2025 8:32 AM EDTTelephone Encounter - Liliya Escobedo LPN - 01/21/2025 8:32 AM EDT Note Date & Type Note Facility 01-29-2025 History of Presen t illness Narrative Images from the original note were not included. Amanda Valerio MD Obstetrics and Gynecology Patient: Lupe Pickard : 1975 (49 y.o.) Exam Date: 01/29/2025 Reason for Visit - Chief Complaint Patient presents with Vaginitis/Bacterial Vaginosis Patient believes she is experiencing bacterial vaginosis due to having vaginal discharge and odor History of Present Illness History of Present Illness Lupe, a patient with a history of bacterial vaginosis (BV) and hysterectomy, presents with concerns of fishy odor and pelvic pain. She reports [...] 5' 7 Wt 328 lb BMI 51.37 kg/m Smoking Status Every Day BSA 2.65 m History of Present Illness, Associated Treatments and [...] No Known Allergies Current Outpatient Medications: B Xidjelq-Mhpxgn-LD (Super Quints B-50) tablet, Take by mouth, Disp: , Rfl: cholecalciferol (Vitamin D-3) 50 MCG (1999) capsule, Take 1 capsule (50 mcg) by mouth in the morning., Disp: 30 capsule, Rfl: 11 clindamycin (Cleocin) 2 % vaginal cream, Insert 1 applicator into the vagina at bedtime for 7 days, Disp: 40 g, Rfl: 0 COLLAGEN PO, Take by mouth, Disp: , Rfl: escitalopram (Lexapro) 20 MG tablet, Take 20 mg by mouth Daily, Disp: , Rfl: ferrous sulfate 325 (65 Fe) MG tablet, Take 325 mg by mouth in the morning. Take with meals., Disp: , Rfl: HYDROcodone-acetaminophen (Blanco) 5-325 MG tablet, Take 1-2 tablets by mouth every 6 (six) hours if needed for severe pain, Disp: 42 tablet, Rfl: 0 levothyroxine (Synthroid, Levoxyl) 125 MCG tablet, Take 1 tablet (125 mcg) by mouth Daily, Disp: 90 tablet, Rfl: 3 liothyronine (Cytomel) 5 MCG tablet, [...] Morbid obesity with BMI of 40.0-44.9, adult ([facility]) Nonscarring hair loss, unspecified Postprocedural hypothyroidism Primary [...] to gross testing, coordination, and gait are normal or at baseline unless noted below. Physical Exam [...] Assessment & Plan documented in this encounter [facility] 01-21-2025 Telephone encount er Note Pt is requesting a refill on Hydrocodone Acetaminophen [facility] 01-21-2025 Miscellaneous Notes Formattin g of this note might be different from the original. 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 An x-ray conducted at the ER on 01/02/2025 did not reveal any abnormalities. She also consulted an clinical exercise specialist earlier this week who performed another x-ray, which also showed no issues. The ER prescribed steroids, which provided minimal relief initially but were ineffective thereafter. The clinical exercise specialist suggested a one-time steroid injection and [...] Morbid obesity with BMI of 40.0-44.9, adult ([facility]) Nonscarring hair loss, unspecified Postprocedural hypothyroidism Primary [...] MEDICATIONS: Current Outpatient Medications Medication Instructions B Pvfayuq-Ruergn-EX (Super Quints B-50) tablet Take by mouth [...] Continue using Tylenol as needed. - HYDROcodone-acetaminophen (Blanco) 5-325 MG tablet; Take 1-2 tablets by mouth every 6 (six) hours if needed for severe pain for up to 7 days Dispense: 42 tablet; Refill: 0 Follow-up - MRI scheduling confirmed. documented in this encounter [facility] 12-20-2024 History of Presen t illness [...] Morbid obesity with BMI of 40.0-44.9, adult ([facility]) Nonscarring hair loss, unspecified Postprocedural hypothyroidism Primary [...] MEDICATIONS: Current Outpatient Medications Medication Instructions B Swapddc-Gmhvwo-WE (Super Quints B-50) tablet Take by mouth [...] (<1800 mg/day) and saturated fats, following the [place] [employer] guidelines. - The use of [...] importance of probiotics and prebiotics, such as Danish yogurt and luis seeds, was discussed to [...] sooner if necessary. documented in this encounter [facility] 12-13-2024 History of Presen t illness [...] has discontinued Lasix and diltiazem at the master [employer] recommendation. She was prescribed Keflex, but it did not alleviate her symptoms. She was previously on Lasix 40 mg twice daily and potassium 20 mg twice daily, but these medications were discontinued by her master coast[employer] yacht, at [facility], who instead prescribed losartan hydrochlorothiazide. This [...] stimulator surgery for her back pain at [facility]. 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 - Suspected contribution to pulmonary hypertension and [...] Nerve stimulator surgery scheduled for 12/17/2024 at [facility]. 5. Pulmonary hypertension -mild, on echo, rule [...] with documentation above. documented in this encounter [facility] 12-06-2024 History of Presen t illness Narrative Lupe Pickard is a 49 y.o. female presents with chief complaint of Edema (Office visit with Dalia on 11/21 for bilateral lower extremity edema and cellulitis rt lower extremity. She was advised by master coastwise yacht to stop Lasix and she was prescribed [...] pain. She had been using gel nail cypriot on her toes, which was removed last [...] days. She has not introduced any new hqlg-jsu-gpctdjw vitamins or supplements. She has been experiencing [...] weight gain. - Alleviating/Aggravating Factors: No new cblb-ozg-fqyluvq vitamins or supplements; stopped taking turmeric for [...] a sleep study scheduled for 01/2025. Her master coastwise yacht diagnosed her with sleep apnea based on [...] pain prompting an x-ray. Insulin Resistance Her master coastwise yacht mentioned that she is insulin resistant based [...] had her thyroid levels checked by her buying intern. She is taking iron supplements and is [...] Morbid obesity with BMI of 40.0-44.9, adult ([facility]) Nonscarring hair loss, unspecified Postprocedural hypothyroidism Primary [...] MEDICATIONS: Current Outpatient Medications Medication Instructions B Xuwxuyw-Uqsdtv-LO (Super Quints B-50) tablet Take by mouth [...] and potential allergic reaction to gel nail cypriot. - Urinalysis will be conducted to check [...] - Coded as having sleep apnea by master coastwise yacht based on symptoms and echocardiogram. - Sleep study scheduled for 01/2025. Follow-up - Follow-up in [address] Coon was present in office suite today and is supervising patient care and available for consult. I'm following his plan of care for the above problems. Previous notes and plan were reviewed and followed. documented in this encounter [facility] 11-29-2024 Evaluation note Diagnosis Onset Date Resolution Acquired hypothyroidism acute 2024 9:36am Anxiety and depression acute 2024 9:36am Chronic back pain acute November 9:36am Insomnia acute November 29, 2024 9:36am Pulmonary hypertension acute 2024 9:36am Sleep apnea acute November 29 9:36am Sleep related hypoxia acute Nov 9:36am [facility] Work Phone: 1(899) 763-512007-03-2025 Evaluation note* Diagnosis Onset Date Resolution Status Admit Date Acquired hypothyroidism acute 2024 9:36am Anxiety and depression acute 2024 9:36am Chronic back pain acute November 9:36am Insomnia acute November 29, 2024 9:36am Pulmonary hypertension acute 2024 9:36am Sleep apnea acute November 29 9:36am Sleep related hypoxia acute Nov 9:36am Leg swelling acute December 26, 2 025 8:57am [facility] Work Phone: 1(140) 697-438006-30-2025 NotePatient Education Urology Botulinum Toxin Bladder Injection [...] including vitamins, herbs, eye drops, creams, and nzmo-aud-atkwtkw medicines. ??? Any problems you or family [...] tells you to take them. ??? Taking grgp-kmc-lztseob medicines, vitamins, herbs, and supplements. General instructions [...] these instructions at home: Medicines ??? Take emgl-cee-qndapqx and prescription medicines only as told by your health care provider. ??? If you were prescribed an antibiotic medicine, take it as told by your health care provider. Donot stop using the antibiotic even if you start to feel better. General instructions ??? If you were given a sedative during the procedure, (more content not included)...[facility]06-25-2025 History of Present illness Narrative* Dalia Dennis, PLANT HEALTH MANAGER - 11/21/2024 10:15 AM EDT Images from [...] She is under the care of a master coastwise yacht at [facility] and does not have a primary [...] Morbid obesity with BMI of 40.0-44.9, adult ([facility]) Nonscarring hair loss, unspecified Postprocedural hypothyroidism Primary [...] MEDICATIONS: Current Outpatient Medications Medication Instructions B Luchtkk-Zrwgwg-DI (Super Quints B-50) tablet Take by mouth [...] with urology on Tuesday. documented in this encounterMet[facility] [id number] History of Present illness Narrative* Amanda Valerio MD - 10/16/2024 1:54 PM EDT yeast documented in this encounterMetropolitan [facility] Psych[facility] [id number] History of Present illness Narrative* MARITZA Corbin [...] uncertain about when she can see her radiation monitor. She was previously prescribed clindamycin phosphate cream [...] stump Anxiety Bladder disorder Chronic fatigue Depression ([facility]/HCC) Fibromyalgia SANDRA (generalized anxiety disorder) ([facility]) Graves disease ([facility]/HCC) Hypertension ([facility]) Hypothyroidism (acquired) ([facility]) Irritable bowel syndrome with constipation 01/24/2024 Lyme disease Mixed stress and urge urinary incontinence Morbid obesity with BMI of 40.0-44.9, adult ([facility]) Nonscarring hair loss, unspecified Postprocedural hypothyroidism ([facility]) Primary osteoarthritis involving multiple joints 01/24/2024 Urinary [...] MEDICATIONS: Current Outpatient Medications Medication Instructions B Fblqxqs-Tcbkfe-ZR (Super Quints B-50) tablet Take by mouth [...] call us when she gets home from [place] on [place]/15 and if persistent we will [...] chart today. - She is going to [place] on and coming back on 10/15/24, we are going to have her use topical metronidazole daily x 8 weeks with thin layer. But she is not to start this [place]. She will need to follow up with dermatology. documented in this encounterMetropolitan [facility] [id number] Evaluation note* Diagnosis Onset Date Resolution Status Admit Date Rotator cuff syndrome of right shoulder acute July 19, 2 025 2:50pm [facility] Work Phone: 1([phone]) 473-504312-16-2024 Evaluation note* Diagnosis Onset Date Resolution Status Admit Date Acute bacterial sinusitis noneactive May 14, 2024 1:54pm Acute bronchitis noneactive May 14, 2024 1:54pm [facility] Work Phone: 1(323) 486-707512-16-2024 Evaluation note* Diagnosis Onset Date Resolution Status Admit Date Acute bacterial sinusitis noneactive May 14, 2024 1:54pm Acute bronchitis noneactive May 14, 2024 1:54pm Rotator cuff syndrome of right shoulder acute July 19 025 2:50pm [facility] Work Phone: [phone]) 475-164012-09-2024 Telephone encounter Note* Telephone Encounter - Cristobal Xenia - 05/07/2024 10:37 AM EST Please refill levothyroxine thank you! [facility] [id number] Miscellaneous Notes* Telephone Encounter - Cristobal Xenia - 05/07/2024 10:37 AM EST Please refill levothyroxine thank you! documented in this encounterMetropolitan [facility] Psych[facility] CenterOgnvybrvrs32-27-0175 History of Present illness Narrative* Betty Lawrence NP - 03/07/2024 11:15 AM EDT Oral prednisone to start tomorrow. Patient has had bursa site injections when she was a patient of Dr. Billings. If the IM steroid and oral steroid does not help will schedule with Dr. Sanderson if he is agreeable. documented in this encounterMetropolitan [facility] Psychiatric [id number] History of Present illness Narrative* Eliana Ch, RAND - 03/07/2024 11:00 AM EDT Subjective Patient ID: Lupe Pickard (: 1975) is a 48 y.o. female who presents for No chief complaint on file.. HPI Pt presents for right hip bursitis, nurse visit only. History of Present Illness Current Outpatient Medications Medication Instructions B Xhscger-Qjgezr-CI (Super Quints B-50) tablet Oral Calcium Carb-Cholecalciferol [...] -No follow-ups on file. documented in this encounterMetropolitan [facility] Psych[facility] [id number] History of Present illness Narrative* Kenyetta Dove [...] T3 high. Currently she is on thyroid PLANT HE[employer] MANAGER natural 60 mcg twice a day, cut back from 90 mcg twice a day and levothyroxine 50 mcg one-half tablet twice a day. SUBJECTIVE: MEDICATIONS: Current Outpatient Medications Medication Instructions B Edobjot-Oebcey-LP (Super Quints B-50) tablet Oral Calcium Carb-Cholecalciferol [...] Morbid obesity with BMI of 40.0-44.9, adult ([facility]) Nonscarring hair loss, unspecified Postprocedural hypothyroidism (CMS/HCC) [...] 1 year (around 02/27/2025). documented in this encounterMetropolitan [facility] Psych[facility] [id number] History of Present illness Narrative* Melissa Coon MD - 01/24/2024 3:00 PM EDT Images from the original note were not included. Lupe Pickard is a 48 y.o. female presents with chief complaint of Establish Care HPI: [facility] is [facility]. Former PCP was Dr. Singh, last seen approximately 2 months ago. She follows with several specialists, Dr. Ozuna, Dr. Dove, [facility], [facility] cardiology and Radha Mcintosh NP ([facility]). Patient would like to discuss [...] was previously under the care of a supervisor calibration, Dr. Brambila, who conducted blood tests and ruled out any form of rheumatoid arthritis. Her last gynecological check-up with Dr. Valerio. She has had her thyroid removed and [...] a possible stimulator. She also sees a master coastwise yacht at [facility]. She sees Radha Mcintosh for her [...] Left SECTION, LOW TRANSVERSE 1992, 1993, 2002, 2007 HYSTERECTOMY all except 1 ovary THYROIDECTOMY SOCIAL [...] MEDICATIONS: Current Outpatient Medications Medication Instructions B Kaldupm-Umvgwe-LC (Super Quints B-50) tablet Oral Calcium Carb-Cholecalciferol [...] (BMI) of 40.0 to 44.9 in adult ([facility]) Discussion about weight loss options. She is [...] mL; Refill: 0 15. BMI 40.0-44.9, adult ([facility]) As above. Patient was seen and examined with Dalia Dennis CNP. History was confirmed and verified. Lucia elements of the exam were also completed. Assessment and plan were reviewed and addended as needed. Agree with documentation above. documented in this encounterMetropolitan Saint [facility] Psychiatric [id number] Evaluation note* Encounter Date Diagnosis Assessment Notes Treatment Notes Treatment Clinical Notes Jun, Cough (ICD-10 - R05.9) Jun, COVID (ICD-10 - U07.1) Rest. Drink plenty of fluids. Take lwkz-fjs-zweeqiq Tylenol or Motrin as needed for fever or discomfort. May continue to take schu-dln-nzwtfdo cold and flu medicine for symptom management of your COVID as needed, but you will need to follow the instructions on the box. May take chju-jdy-cdyyfjp Delsym or Robitussin for cough. Take the [...] to rest, drink plenty of fluids, take osrh-nij-rdoouqa Tylenol or Motrin as needed for fever or discomfort and may take ywvw-ttd-vjsztcb cold and flu medicine for symptom management of with COVID. Patient was told she can take thgc-lst-neorvua cough medicine for her cough. She is to follow-up with her primary care provider if symptoms persist or go to the ER if symptoms worsen including chest pain shortness of breath difficulty breathing pain with deep breathing. Patient is agreeable to treatment plan. Jun, Sore throat (ICD-10 - J02.9) Jun, Acute streptococcal pharyngitis (ICD-10 - J02.0) Slated Other 02-09-2024 Miscellaneous Notes* Telephone Encounter - Stephie Brambila MD - 07/08/2023 11:04 AM EST Called patient patient to discuss lab results. MARCIO panel, dsDNA, C3, C4 were normal. No major abnormalities with other labs. At this time, no signs of rheumatologic autoimmune disease. Discussed Dermatology evaluation for rash and hair loss. Stephie Brambila MD [facility] NoteHNO ID: [id number] Author: STEPHIE BRAMBILA MD Service: ? Author Type: Physician Type: Progress Notes Filed: 06/26/2023 14:11 Note Text: Rheumatology Clinic Date of Service: 05/24/2023 Patient: Lupe Pickard Medical Record: [id number] Last Rheumatology visit: 05/24/2023 (with Stephie Brambila) [...] uses heat/ice, massage which helps. She takes Blanco 5mg that does not do much for [...] 10 years. 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 Family History: No known FH of autoimmune [...] by mouth. CALCIUM CARBONATE (more content not included)...[facility] 05-17-2023 NoteHNO ID: [id number] Author: Stephie Brambila MD Service: ? Author Type: Physician Type: Progress Notes Filed: 05/17/2023 2:50 PM Note Text: Rheumatology Clinic Date of Service: 05/17/2023 Patient: Lupe Pickard Medical Record: [id number] [facility] History of Present Illness Lupe Pickard [...] uses heat/ice, massage which helps. She takes Blanco 5mg that does not do much for [...] 10 years. 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 Family History: No known FH of autoimmune [...] by mouth. CALCIUM CARBONATE/VITAMIN (more content not included)...[facility]10-31-2023 Procedure [facility]10-29-2023 Evaluation note* Encounter Date Diagnosis Assessment Notes Treatment Notes Treatment Clinical Notes Feb, Rash and nonspecific skin eruption (ICD-10 - R21) Likely rash is related to monitor adhesive, although iron cannot be fully excluded. Stop iron. Consult prescribing physician tomorrow about iron supplementation and follow thheir plan of care. Continue with heart monitor and call master coastwise yacht office tomorrow morning for guidance as she [...] Pt understood and agreed to treatment plan. Slated Other 09-21-2023 Evaluation note* Encounter Date Diagnosis [...] Jan, Blood in stool (ICD-10 - K92.1) Slated Other 04-06-2023 History of Present illness Narrative* [...] Risk protocol implemented: No documented in this [id number] History of Present illness Narrative* Javad Leach [...] Risk protocol implemented: No documented in this [id number] Evaluation note* Encounter Date Diagnosis Assessment Notes Treatment Notes Treatment Clinical Notes Aug, Irritable bowel syndrome with constipation (ICD-10 - K58.1) Start Amitiza 24mcg twice daily. Start Miralax in addition to Amitiza. Titrate dose as needed. Referral to [facility] for rectal manometry Slated Other 03-01-2023 History of Present illness Narrative* [...] months or earlier if the need arise -[facility] Del Angel DO Work Phone: 1([phone]) 727-221902-16-2023 NoteCONSULTATION CONSULTATION DATE: 07/15/2022 HISTORY OF PRESENT ILLNESS: This is a 47-year-old female who returns to the clinic for a three month follow up for her chronic mid back pain and lower back pain. She was last seen on 04/15/2022 and, at that time, she received a referral to Dr. Bradley Leach at [facility]. She was having increased thoracic pain [...] Bradley Leach at his new location at [facility] in [place]. Refills for baclofen and tramadol at the set dose and frequency will be sent to her pharmacy. We will furnish a letter to her PCP, at the patient's request, to take over her tramadol prescription. She will be followed up in the office post procedure.[facility] [id number] Note CONSULTATION PROCEDURE DATE: 07/29/2022 PREOPERATIVE DIAGNOSIS: [...] will be followed up in the office.[facility] CenterWrntvaxl99-44-5805 Evaluation note* Encounter Date Diagnosis Assessment Notes Treatment Notes Treatment Clinical Notes Apr, Irritable bowel syndrome with constipation (ICD-10 - K58.1) Stop Amitiza Start Trualcne 3mg daily Follow up in 3-4 months Slated Other 11-30-2022 Evaluation note* Encounter Date Diagnosis [...] (ICD-10 - J02.9) strep neg, see above. Slated Other 11-17-2022 NoteCONSULTATION CONSULTATION DATE: 04/15/2022 HISTORY [...] send a referral to spine surgeon in [place], Dr. Bradley Leach. Patient is in agreement to this, and we will follow her up at our clinic in three months' time.[facility] [id number] NoteCONSULTATION CONSULTATION DATE: 01/06/2022 This is a [...] to initial consultation and prefers this at [facility]. We will see the patient in three months' time unless otherwise indicated.[facility] CenterDtftrewg86-75-7858 NoteCONSULTATION PROCEDURE DATE: 01/06/2022 PRE AND POSTOPERATIVE [...] will be followed up in the office.[facility] 11-12-2021 NoteCONSULTATION CONSULTATION DATE: 11/12/2021 HISTORY OF [...] Patient agrees with the plan of care. [facility] Signed and Approved by: TANGELA MARR . 11/25/2021 16:24:00[facility] CenterEvaluation noteNo assessment information availableGood [facility]aritan Hospital Work Phone: Evaluation noteNo InformationNort Here@ Networks Other Evaluation note* Diagnosis Cervical spondylosis with [...] Onset Date Resolution Status Abdominal pain acute [facility] Work Phone: Evaluation note* Diagnosis Onset Date Resolution Status Rotator cuff syndrome of right shoulder acute [facility] Work Phone: Evaluation note* Diagnosis Onset Date Resolution Status Rotator cuff syndrome of right shoulder acute Sinusitis, acute maxillary n oneactive Bronchitis noneactive [facility] Work Phone: Evaluation note* Diagnosis Onset Date Resolution Status Sinusitis, acute maxillary n oneactive Bronchitis noneactive [facility] Work Phone: Evaluation note* Diagnosis Postoperative hypothyroidism ([facility]/HCC)- Primary Postsurgical hypothyroidism Encounter for dietary consultation Vitamin D deficiency Class 3 severe obesity without serious comorbidity with body mass index (BMI) of 40.0 to 44.9 in adult, unspecified obesity type ([facility]/HCC) documented in this encounter [facility] HealthcareEvaluation [facility]* Diagnosis Bursitis of other bursa of right hip- Primary documented in this encounter [facility]* Diagnosis Bursitis of other bursa of right hip documented in this encounter [facility] HealthcareEvaluation note* Diagnosis Essential hypertension (CMS/HCC)- Primary Unspecified essential hypertension Moderate major depression (CMS/HCC) Major depressive disorder, single episode, moderate SANDRA (generalized anxiety disorder) ([facility]/HCC) Generalized anxiety disorder Primary osteoarthritis involving multiple joints Fibromyalgia Unspecified myalgia and myositis Acquired hypothyroidism ([facility]/HCC) Unspecified hypothyroidism Irritable bowel syndrome with constipation [...] (BMI) of 40.0 to 44.9 in adult ([facility]/HCC) BMI 40.0-44.9, adult ([facility]) documented in this encounter [facility] HealthcareEvaluation note* Diagnosis Lower extremity edema- Primary Edema SOB (shortness of breath) on exertion Shortness of breath Bilateral leg edema Edema Rosacea documented in this encounter [facility] HealthcareEvaluation note* Diagnosis Acute vaginitis- Primary Unspecified vaginitis and vulvovaginitis documented in this encounter [facility] HealthcareEvaluation note* Diagnosis Bilateral lower extremity edema- Primary Essential hypertension Unspecified essential hypertension Pulmonary hypertension (HCC) Other chronic pulmonary heart diseases Cellulitis of right lower extremity Snoring Other dyspnea and respiratory abnormality documented in this encounter [facility] HealthcareEvaluation note* Diagnosis Onset Date Resolution Status Admit Date Acquired hypothyroidism acute J marlys 2024 9:36am Anxiety and depression acute Ju ly 2024 9:36am Chronic back pain acute November 9:36am Insomnia acute November 29, 2024 9:36am Sleep apnea acute November 29 9:36am [facility] Work Phone: Evaluation note* Diagnosis Bilateral lower [...] plasma protein metabolism documented in this encounter [facility] HealthcareEvaluation note* Diagnosis Bilateral lower extremity edema- Primary Pulmonary hypertension (HCC) Other chronic pulmonary heart diseases Dyspnea, unspecified type Essential hypertension Unspecified essential hypertension Medicare annual wellness visit, subsequent ACP (advance care planning) Other specified counseling Obstructive sleep apnea syndrome Obstructive sleep apnea (adult) (pediatric) Pain of upper abdomen documented in this encounter [facility] HealthcareEvaluation note* Diagnosis Bilateral lower extremity edema- Primary Hepatomegaly documented in this encounter [facility] HealthcareEvaluation note* Diagnosis Acute pain of left knee- Primary documented in this encounter [facility] HealthcareEvaluation note* Diagnosis Acute pain of left knee documented in this encounter [facility] HealthcareEvaluation note* Diagnosis Acute pain of left knee documented in this encounter [facility] HealthcareEvaluation note* Diagnosis Encounter for gynecological examination without abnormal finding- Primary Vaginitis and vulvovaginitis Cervicitis and endocervicitis Acute vaginitis Unspecified vaginitis and vulvovaginitis Bacterial vaginitis Unspecified vaginitis and vulvovaginitis Vaginal odor Unspecified symptom associated with female genital organs Vaginal discharge Leukorrhea, not specified as infective Vaginal irritation Pruritus of genital organs Encounter for screening for cervical cancer Hormone imbalance documented in this encounter [facility] HealthcareHistory general [...] Hospitalization History childbirth Hospitalization History see surgery Slated Other History general Narrative - Reported* Type [...] Hospitalization History childbirth Hospitalization History see surgery Slated Other History of Present illness Narrative* Patient [...] months or earlier if the need arise 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 Follow-up for your stress test and continue to take your antihypertensive medication as prescribed. Follow-up with your PCP for ongoing treatment of your high blood pressure. Follow-up with the eye doctor listed below regarding your left eye pain.[facility] Work Phone: Hospital Discharge instructions Additional [...] me in 6-8 weeks. Low FODMAP diet [employer] 1 p.o. every morning -Notify the doctor if you have any problems. -Office number [phone] Samaritan Hospital Work Phone: Reason for referral (narrative)No reason for referral information availableGood Samaritan Hospital Work Phone: Chief Complaint and Reason [...] cortisol levels October 25, 2024 7:52am r60.0 R06.November 09, 2024 8:33 am R60.0 November 21, 2024 11:2 4am E89.0 R79.89 November 27, 2024 12:54 pm Chief Complaint Admit Date R Rotator cuff syndrome September 03, 2024 1:00pm r06.02 r60.0 October 09, 2024 11:11 am Abnormal cortisol levels October 25, 2024 7:52am r60.0 R06.November 09, 2024 8:33 am R60.0 November 21, [...] cortisol levels October 25, 2024 7:52am r60.0 R06.November 09, 2024 8:33 am R60.0 November 21, [...] cortisol levels October 25, 2024 7:52am r60.0 R06.November 09, 2024 8:33 am R60.0 November 21, 2024 11:2 4am E89.0 R79.89 November 27, 2024 12:54 pm Snoring November 29, 2024 9:36a m m54.November 29, 2024 10:35 am R60.0 I27.20 R06.00 R06.83 R60.1 I10 Z86 .2 December 07, 2024 9:37am Chief Complaint Admit Date r06.02 r60.0 October 09, 2024 11:11 am Abnormal cortisol levels October 25, 2024 7:52am r60.0 R06.November 09, 2024 8:33 am R60.0 November 21, [...] pain January 02, 2025 11: 04am ER [facility] LT KNEE PAIN WX January 08 11:15am M25.562 - Pain in left knee January 08, 2025 11:18am Chief Complaint Admit Date r60.0 R06.02 November [...] pain January 02, 2025 11: 04am ER [facility] LT KNEE PAIN WX January 08 11:15am M25.562 - Pain in left knee January 08, 2025 11:18am M23.92 January 25, 2025 8: 43am Chief Complaint Admit Date r60.0 R06.02 November [...] pain January 02, 2025 11: 04am ER [facility] LT KNEE PAIN WX January 08 11:15am M25.562 - Pain in left knee January 08, 2025 11:18am M23.92 January 25, 2025 8: 43am MRI RESULTS [facility] January 31, 2025 1:50pm Advance Directives Advance Directive Response Recorded Date/ [...] Specialty Diagnoses / Procedures Referred By Yared t Referred To Contact Radiology Diagnoses Thoracic spine pain Procedures CT T-SPINE W/O CONTRAST Javad Leach MD [address] [place] [id number] SCAN Referral ID Status Reason Start Date Expiration Date V isits Requested Visits Authorized [id number] Authorized 09/06/2022 09/06/2023 1 1 Specialty Diagnoses / Procedures Referred By Contac t Referred To Contact Radiology Diagnoses Cervical spondylosis with myelopathy Procedures DOWNLOAD POWERSHARE IMAGES TO EPIC Javad Leach MD [facility] [place] [address] S DIAGNOSTIC RADIOLOGY [address] [place] [id number] Referral ID Status Reason Start Date Expiration Date V isits Requested Visits Authorized [id number] Authorized 08/24/2022 08/24/2023 1 1 Summary Purpose Additional Source Comments Source Comments (unrecognize d section and content) In the event this informatio n is protected by the Federal Confidentiality of Alcohol and Drug Abuse Patient Records regulations: The Federal rules restrict any use of the information to criminally investigate or prosecute any alcohol or drug abuse patient.[facility] the event this information is protected by the Federal Confidentiality of Alcohol and Drug Abuse Patient Records regulations: The Federal rules restrict any use of the information to criminally investigate or prosecute any alcohol or drug abuse patient.[facility] REASON FOR VISIT (unrecogniz ed section and content) Reason Comments New patient, to establish relationship B ack pain Specialty Diagnoses / Procedures Referred By Contac t Referred To Contact Neurosurgery Diagnoses Protrusion of thoracic intervertebral disc Thoracic radiculitis [address] [place] [address] [facility] NEUROSURGERY [address] [place] [address] Referral ID Status Reason Start Date Expiration Date V isits Requested Visits Authorized [id number] Authorized 07/22/2022 07/22/2023 3 3 Specialty Diagnoses / Procedures Referred By Contac t Referred To Contact Radiology Diagnoses Thoracic spine pain Procedures CT NEURO IMAGE IMPORT(KYLE) DOWNLOAD POWERSHARE IMAGES TO Javad Leach MD [address] [place] [address] [facility] DIAGNOSTIC RADIOLOGY [address] [place] [address] Referral ID Status Reason Start Date Expiration Date Visits Re quested Visits Authorized [id number] Closed 09/30/2022 09/30/2023 1 1 Reason Comments [...] rt lower extremity. She was advised by master [employer] to stop Lasix and she was prescribed Losartan hydrochlorothiazide 100/12.5 mg every day. Bilateral edema and pain continue. SOB with exertion has worsened within the last couple days. Reason Comments Review lab Review lab drawn 03/2025 Medicare Annual Wellness Visit Sayen t Reason Comments 2 Week Follow Up Bilateral extremity edema continues. Weight gain of 3.6 # since 12/13 OV. Appointment scheduled with Dr Redding 12/26/2024 Reason Comments Knee Pain Reason Onset Date Comments Med Refill 01/21/2025 Reason Comments Vaginitis/Bacterial Vaginosis Care Teams (unrecognized sec tion and content) [...] Status: Inactive Member Role Status Dates Amanda Valerio MD Attending Provider Active PHYSICIAN NO FAMILY [...] Provider, Other P rovider Active Radha Mcintosh PLANT HEALTH MANAGER-C Attending Provider Active Team Status: Inactive Member Role Status Dates Melissa Singh II, DO Primary Care Provider Active Beny Hoskins MD Attending Provider Active Zoya Aguirre APRN [employer]ANT HEALTH MANAGER-C Other Provider Act cecelia Ink Grinder Relationship Specialty Start Date End Date Donya Billings DO Referring Family Medicine 11/22/22 Team Status: Inactive Member Role Status Dates Melissa Singh II, DO Primary Care Provider Active Start: July 22, 2023 End: July 22, 2023 Jorge Jarrett , Emergency Provider Active St art: July 22, 2023 End: July 22, 2023 Team Status: Inactive Member Role Status Dates Melissa Singh II, DO Primary Care Pro videfrances, Attending Provider Active Start: July 28, 2023 End: July 28, 2023 Team Status: Inactive Member Role Status Dates Melissa Singh II, DO Primary Care Provider Active Start: August 16, 2023 End: August 16, 2023 Brielle Dominguez , PLANT HEALTH MANAGER-C Attending Provider Active St art: August 16, [...] Referral Self Attending Provider Active Start: Brent [id number] End: January 20, 2024 Team Status: Active Member Role Status Dates Melissa Coon MD Primary Care Provider Active Team Status: Inactive Member Role Status Dates Melissa Coon MD Primary Care Provider Active St art: February 01, 2024 End: February 01, 2024 MARCELLUS Elizondo Attending Provider Active S tart: February 01, 2024 End: February 01, 2024 Team Status: Inactive Member Role Status Dates Melissa Coon MD Primary Care Provider Active St art: February 21, 2024 End: February 21, 2024 Kenyetta Dove MD Attending Provider Active Sta rt: February 21, 2024 End: February 21, 2024 Ink Grinder Relationship Specialty Start Date End Date Melissa Coon MD [address] [place] [address] PCP - General Internal Medicine 01/24/24 Ink Grinder Relationship Specialty Start Date End Date Melissa Coon MD [address] [place] [address] PCP - General Internal Medicine 01/24/24 Ink Grinder Relationship Specialty Start Date End Date Melissa Coon MD [address] [place] [address] PCP - General Internal Medicine 01/24/24 Ink Grinder Relationship Specialty Start Date End Date Melissa Coon MD [address] [place] [address] PCP - General Internal Medicine 01/24/24 Ink Grinder Relationship Specialty Start Date End Date Melissa Coon MD [address] [place] [address] PCP - General Internal Medicine 01/24/24 Ink Grinder Relationship Specialty Start Date End Date Melissa Coon MD [address] [place] [address] PCP - General Internal Medicine 01/24/24 Ink Grinder Relationship Specialty Start Date End Date Melissa Coon MD [address] [place] [address] PCP - General Internal Medicine 01/24/24 Team Status: Inactive Member Role Status Dates [...] August 29, 2024 End: August 29, 2024 Ink Grinder Relationship Specialty Start Date End Date Melissa Coon MD [address] [place] [address] PCP - General Internal Medicine 01/24/24 Kenyetta Dove MD [address] [place] [address] Referring Physician Endocrinology 08/01/24 Donya Ozuna MD [address] [facility] [place] [address] Referring Physician Urology 08/01/24 Amanda Valerio MD [address] [place] [address] Obstetrics and Gynecology 08/01/24 Krish Hodge MD [address] [place] [address] Referring Physician Ophthalmology 08/01/24 Beny Hoskins MD [address] [place] [address] [address] [place] [address] Referring Physician Gastroenterology 08/01/24 [facility] 08/01/24 Team Status: Active Member Role [...] October 09, 2024 End: October 09, 2024 Ink Grinder Relationship Specialty Start Date End Melissa Coon MD [address] [facility] [address] [place] [address] PCP - General Internal Medicine 01/24/24 Kenyetta Dove MD [address] [facility] [place] [address] Referring Physician Endocrinology 08/01/24 Donya Ozuna MD [address] [facility] [place] [address] Referring Physician Urology 08/01/24 Amanda Valerio MD [address] [facility] [address] [place] [address] Obstetrics and Gynecology 08/01/24 Krish Hodge MD [address] [place] [address] Referring Physician Ophthalmology 08/01/24 Beny Hoskins MD [address] [place] [address] [address] [place] [address] Referring Physician Gastroenterology 08/01/24 [facility] 08/01/24 Team Status: Inactive Member Role Status Dates Melissa Coon MD Primary Care Provider Active St art: October 25, 2024 End: October 25, 2024 Kenyetta Dove MD Attending Provider, Referring Provider Active Start: October 25, 2024 End: October 25, 2024 Ink Grinder Relationship Specialty Start Date End Melissa Coon MD [address] [facility] [address] [place] [id number] PCP - General Internal Medicine 01/24/24 Kenyetta Dove MD [address] [place] [address] Referring Physician Endocrinology 08/01/24 Donya Ozuna MD [address] [facility] [place] [address] Referring Physician Urology 08/01/24 Amanda Valerio MD [address] [facility] [address] [place] [address] Obstetrics and Gynecology 08/01/24 Krish Hodge MD [address] [place] [address] Referring Physician Ophthalmology 08/01/24 Beny Hoskins MD [address] [place] [address] [address] [place] [address] Referring Physician Gastroenterology 08/01/24 [facility] 08/01/24 Team Status: Inactive Member Role [...] November 29, 2024 End: November 29, 2024 Ink Grinder Relationship Specialty Start Date End Date Melissa Coon MD [address] [place] [address] PCP - General Internal Medicine 01/24/24 Kenyetta Dove MD [address] [place] [address] Referring Physician Endocrinology 08/01/24 Donya Ozuna MD [address] [place] [address] Referring Physician Urology 08/01/24 Amanda Valerio MD [address] [place] [address] Obstetrics and Gynecology 08/01/24 Krish Hodge MD [address] [facility] [place] [address] Referring Physician Ophthalmology 08/01/24 Beny Hoskins MD [address] [place] [address] [address] [place] [address] Referring Physician Gastroenterology 08/01/24 [facility] Health 08/01/24 Ink Grinder Relationship Specialty Start Date End Date Melissa Coon MD [address] [place] [address] PCP - General Internal Medicine 01/24/24 Kenyetta Dove MD [address] [place] [address] Referring Physician Endocrinology 08/01/24 Donya Ozuna MD [address] [place] [address] Referring Physician Urology 08/01/24 Amanda Valerio MD [address] [place] [address] Obstetrics and Gynecology 08/01/24 Krish Hodge MD [address] [place] [address] Referring Physician Ophthalmology 08/01/24 Beny Hoskins MD [address] [place] [address] [address] [place] [address] Referring Physician Gastroenterology 08/01/24 [facility] 08/01/24 Ink Grinder Relationship Specialty Start Date End Date Melissa Coon MD [address] [facility] [address] [place] [address] PCP - General Internal Medicine 01/24/24 Kenyetta Dove MD [address] [place] [address] Referring Physician Endocrinology 08/01/24 Donya Ozuna MD [address] [place] [address] Referring Physician Urology 08/01/24 Amanda Valerio MD [address] [facility] [address] [place] [address] Obstetrics and Gynecology 08/01/24 Krish Hodge MD [address] [place] [address] Referring Physician Ophthalmology 08/01/24 Beny Hoskins MD [address] [place] [address] [address] [place] [address] Referring Physician Gastroenterology 08/01/24 [facility] 08/01/24 Team Status: Inactive Member Role Status Dates Melissa Coon MD Primary Care Provider Active St art: December 07, 2024 End: December 07, 2024 Omid Quan , SHAHNAZ MSN ANP-C Attending Provider Act cecelia Start: December 07, 2024 End: December 07, 2024 Team Status: Inactive Member Role Status Dates Melissa Coon MD Primary Care Provider Active St art: December 18, 2024 End: December 18, 2024 Robbie Dale MD Attending Provider Active S tart: December 18, 2024 End: December 18, 2024 Ink Grinder Relationship Specialty Start Date End Date Melissa Coon MD [address] [place] [address] PCP - General Internal Medicine 01/24/24 Kenyetta Dove MD [address] [place] [address] Referring Physician Endocrinology 08/01/24 Donya Ozuna MD [address] [facility] [place] [address] Referring Physician Urology 08/01/24 Amanda Valerio MD [address] [place] [address] Obstetrics and Gynecology 08/01/24 Krish Hodge MD [address] [place] [address] Referring Physician Ophthalmology 08/01/24 Beny Hoskins MD [address] [place] [address] [address] [place] [address] Referring Physician Gastroenterology 08/01/24 [facility] 08/01/24 Team Status: Inactive Member Role [...] 2025 Team Status: Inactive Member Role Status Pina Coon MD Primary Care Provider Active St art: January 08, 2025 End: January 08, 2025 Melissa Benz II, MD Attending Provider Active Start: January 08, 2025 End: January 08, 2025 Ink Grinder Relationship Specialty Start Date End Date Melissa Coon MD [address] [place] [address] PCP - General Internal Medicine 01/24/24 Keynetta Dove MD [address] [place] [address] Referring Physician Endocrinology 08/01/24 Donya Ozuna MD [address] [place] [address] Referring Physician Urology 08/01/24 Amanda Valerio MD [address] [place] [id number] Obstetrics and Gynecology 08/01/24 Krish Hodge MD [address] [place] [id number] Referring Physician Ophthalmology 08/01/24 Beny Hoskins MD [address] [place] [address] [address] [place] [id number] Referring Physician Gastroenterology 08/01/24 [facility] 08/01/24 Ink Grinder Relationship Specialty Start Date End Date Melissa Coon MD [address] [place] [phone] PCP - General Internal Medicine 01/24/24 Kenyetta Dove MD [address] [place] [address] Referring Physician Endocrinology 08/01/24 Donya Ozuna MD [address] [place] [address] Referring Physician Urology 08/01/24 Amanda Valerio MD [address] [place] [address] Obstetrics and Gynecology 08/01/24 Krish Hodge MD [address] [place] [address] Referring Physician Ophthalmology 08/01/24 Beny Hoskins MD [address] [place] [address] [address] [place] [address] Referring Physician Gastroenterology 08/01/24 [facility] 08/01/24 Team Status: Inactive Member Role Status Dates Melissa Coon MD Primary Care Provider Active St art: January 25, 2025 End: January 25, 2025 Melissa Benz II, MD Attending Provider Active Start: January 25, 2025 End: January 25, 2025 Team Status: Inactive Member Role Status Dates Melissa Coon MD Primary Care Provider Active St art: January 31, 2025 End: January 31, 2025 Melissa Benz II, MD Attending Provider Active Start: January 31, 2025 End: January 31, 2025 Ink Grinder Relationship Specialty Start Date End Date Melissa Coon MD [address] [place] [address] PCP - General Internal Medicine 01/24/24 Kenyetta Dove MD [address] [place] [address] Referring Physician Endocrinology 08/01/24 Donya Ozuna MD [address] [facility] [place] [address] Referring Physician Urology 08/01/24 Amanda Valerio MD [address] [place] [address] Obstetrics and Gynecology 08/01/24 Krish Hodge MD [address] [facility] [place] [address] Referring Physician Ophthalmology 08/01/24 Beny Hoskins MD [address] [place] [address] Referring Physician Gastroenterology 08/01/24 [facility] 08/01/24 Goals (unrecognized section and content) Goals may be documented in a n alternate section INFORMATION SOURCE (unrecogn ized section and content) DATE CREATED AUTHOR 10/04/2022 [facility] DATE CREATED AUTHOR AUTHOR'S ORGANIZ ATION 10/11/2022 [facility] DATE CREATED AUTHOR AUTHOR'S ORGANIZ ATION 11/27/2022 [facility] DATE CREATED AUTHOR AUTHOR'S ORGANIZ ATION 12/09/2022 [facility] DATE CREATED AUTHOR AUTHOR'S ORGANIZ ATION 12/09/2022 [employer] DATE CREATED AUTHOR AUTHOR'S ORGANIZ ATION 07/10/2023 [facility] DATE CREATED AUTHOR AUTHOR'S ORGANIZ ATION 01/10/2025 [facility] DATE CREATED AUTHOR AUTHOR'S ORGANIZ ATION 01/19/2025 [facility] DATE CREATED AUTHOR AUTHOR'S ORGANIZ ATION 01/26/2025 [facility] DATE CREATED AUTHOR AUTHOR'S ORGANIZ ATION 01/30/2025 [facility] Special[facility] FOR RECORDS PERTAINING TO PATIENTS WHO ARE [...] BE BASED ON THE PRIMARY CLINICAL RECORDS. [employer] provides no warranty or guarantee of the accuracy or completeness of information in this document.
--- NOTE | 2025-02-06 11:55 | PM.CN ---
Consult Note: HPI Data of Consult Patient: known to practice within the last 3 years Requesting Physician: Willian Jensen MD Primary Care Provider: Non-Staff Physician, MD Consult Narrative Reason for consult: back pain and right shoulder pain Narrative: Lupe Pickard a 49 year old female presents for evaluation of chronic back and right shoulder pain. pt found no benefit to right shoulder injection with Dr Jensen, pt going back to orthopedics who previously did right shoulder injections with benefit. Pt utilizing scs system with mild relief, would like to meet with reps to discuss setting adjustment and concerns with remote/battery lifespan. pain today 6/10 aching in shoulder and back. cc:: CC: Willian Jensen MD Review of Systems ROS Musculoskeletal Reports: back pain, extremity pain and joint pain PFSH COUNT INCLUDES [facility] Medical History Lumbago ?M54.50 - Low back pain, unspecified (ICD-10) Thoracic spondylosis ?M47.814 - Spondylosis without myelopathy or radiculopathy, thoracic region (ICD-10) Muscle spasm ?M62.838 - Other muscle spasm (ICD-10) Thoracic neuritis ?M54.14 - Radiculopathy, thoracic region (ICD-10) Chronic pain syndrome ?G89.4 - Chronic pain syndrome (ICD-10) Lumbar spondylosis ?M47.816 - Spondylosis without myelopathy or radiculopathy, lumbar region (ICD-10) Greater trochanteric bursitis of right hip ?M70.61 - Trochanteric bursitis, right hip (ICD-10) Thoracic stenosis ?M48.04 - Spinal stenosis, thoracic region (ICD-10) Chronic bilateral low back pain ?M54.50 - Low back pain, unspecified (ICD-10) ?G89.29 - Other chronic pain (ICD-10) Sacroiliitis ?M46.1 - Sacroiliitis, not elsewhere classified (ICD-10) Sacroiliac joint dysfunction ?M53.3 - Sacrococcygeal disorders, not elsewhere classified (ICD-10) Lumbar stenosis with neurogenic claudication ?M48.062 - Spinal stenosis, lumbar region with neurogenic claudication (ICD-10) Neck pain ?M54.2 - Cervicalgia (ICD-10) Shoulder pain ?M25.519 - Pain in unspecified shoulder (ICD-10) Arthritis ?M19.90 - Unspecified osteoarthritis, unspecified site (ICD-10) Back pain ?M54.9 - Dorsalgia, unspecified (ICD-10) Dyspnea on exertion ?R06.09 - Other forms of dyspnea (ICD-10) Hypothyroidism ?E03.9 - Hypothyroidism, unspecified (ICD-10) Thyroid disease ?E07.9 - Disorder of thyroid, unspecified (ICD-10) Pseudotumor cerebri ?G93.2 - Benign intracranial hypertension (ICD-10) PTSD (post-traumatic stress disorder) ?F43.10 - Post-traumatic stress disorder, unspecified (ICD-10) Chronic fatigue syndrome ?G93.32 - Myalgic encephalomyelitis/chronic fatigue syndrome (ICD-10) Depression ?F32.A - Depression, unspecified (ICD-10) Anxiety ?F41.9 - Anxiety disorder, unspecified (ICD-10) HTN (hypertension) ?I10 - Essential (primary) hypertension (ICD-10) Palpitations ?R00.2 - Palpitations (ICD-10) Osteoarthritis ?M19.90 - Unspecified osteoarthritis, unspecified site (ICD-10) Fibromyalgia ?M79.7 - Fibromyalgia (ICD-10) IBS (irritable bowel syndrome) ?K58.9 - Irritable bowel syndrome without diarrhea (ICD-10) Constipation ?K59.00 - Constipation, unspecified (ICD-10) Surgical History S/P insertion of spinal cord stimulator (07/23/24) ?Z96.89 - Presence of other specified functional implants (ICD-10) S/P epidural steroid injection ?Z92.241 - Personal history of systemic steroid therapy (ICD-10) History of radiofrequency ablation (RFA) of nerve of lumbar spine ?Z98.890 - Other specified postprocedural states (ICD-10) History of colonoscopy ?Z98.890 - Other specified postprocedural states (ICD-10) History of breast biopsy ?Z98.890 - Other specified postprocedural states (ICD-10) H/O section ?Z98.891 - History of uterine scar from previous surgery (ICD-10) History of hysterectomy ?Z90.710 - Acquired absence of both cervix and uterus (ICD-10) History of thyroidectomy ?E89.0 - Postprocedural hypothyroidism (ICD-10) Family History Other Family history of cancer Family history of diabetes mellitus Family history of heart disease Family history of hypertension Family history of myocardial infarction Family history of stroke Kidney disease Social History Within the past year, how often did you have a drink containing alcohol: never Score interpretation: A score less than 3 is consistent with normal alcohol consumption. Smoking status: Former smoker Do you use any of these nicotine containing products: vaping products Non-prescribed substance use: denies use Highest level of school completed/degree received: high school graduate Meds Home Medications and Allergies Home Medications ?Medication ?Instructions ?Recorded ?Confirmed ?Type cholecalciferol (vitamin D3) 50 50 mcg PO DAILY 12/30/22 12/17/24 History mcg (2,000 unit) capsule (Vitamin D3) liothyronine 5 mcg tablet 5 mcg PO DAILY 12/30/22 12/17/24 History lubiprostone 24 mcg capsule 24 mcg PO DAILY PRN IBS -C 12/30/22 12/17/24 History magnesium oxide 400 mg (241.3 mg 400 mg PO DAILY 12/30/22 12/17/24 History magnesium) tablet melatonin 10 mg tablet 10 mg PO DAILY 12/30/22 12/17/24 History multivitamin (Daily Multi-Vitamin 1 tab PO DAILY 12/30/22 12/17/24 History tablet) Lactobacillus acidophilus 10 100 mmu cells PO DAILY 08/03/23 12/17/24 History billion cell capsule (Probiotic) escitalopram oxalate 20 mg tablet 20 mg PO DAILY 08/03/23 12/17/24 History (Lexapro) ferrous sulfate 325 mg (65 mg 325 mg PO DAILY 08/03/23 12/17/24 History iron) tablet (Feosol) propranolol 20 mg tablet 20 mg PO BID 08/03/23 12/17/24 History calcium 500 mg (as 1 tab PO DAILY 07/13/24 12/17/24 History carbonate)-vitamin D3 5 mcg (200 unit) tablet (Oyster Shell Calcium-Vitamin D3) collagen capsule PO 07/13/24 History vit B complex-folic acid 400 1 cap PO DAILY 07/13/24 12/17/24 History mcg-choline 20 mg-inositol 50 mg capsule (Super B-50 Complex) cephalexin 500 mg capsule 500 mg PO Q8H celulitis 11/27/24 11/27/24 History levothyroxine 125 mcg tablet 125 mcg PO DAILY 11/27/24 12/17/24 History potassium chloride 10 mEq 10 meq PO BID 11/27/24 12/17/24 History tablet,extended release(part/cryst) cephalexin 500 mg capsule 500 mg PO TID 7 days #21 caps 12/17/24 Rx hydrocodone 5 mg-acetaminophen 325 1 tab PO QID PRN pain #12 tabs 12/17/24 Rx mg tablet losartan 100 tab 12/17/24 History mg-hydrochlorothiazide 12.5 mg tablet Allergies Allergy/AdvReac Type Severity Reaction Status Date / Time No Known Drug Allergies Allergy Verified 11/27/24 14:30 Exam Constitutional Documenting provider has reviewed patient's vital signs: yes Common normals: no apparent distress, oriented x3, healthy appearing, alert and well nourished General appearance: cooperative HENHI Common normals: normocephalic, hearing grossly normal bilaterally and moist oral mucous membranes Head and scalp: normocephalic Eye Common normals: PERRL Pupil: PERRL Neck & C-Spine Common normals: full ROM General: normal visual inspection Chest Common normals: inspection of chest normal Respiratory Common normals: normal respiratory effort, no retractions and no use of accessory muscles Back & Pelvis Thoracic spine/upper back: pain with ROM and thoracic spinal tenderness Lumbar spine/lower back: pain with ROM and lumbar spinal tenderness Other: diffuse pain moderate pain to palpation of bilateral shoulder blades no palpable trigger points Extremity Common normals: normal to inspection and full ROM Neuro Common normals: oriented x3 Sensorium/orientation: alert Psych Common normals: mental status grossly normal, thought process normal, cooperative, affect normal, speech normal and activity/motor behavior normal Speech: normal speech Thought process: normal thought process Results Additional Findings Additional findings: If on a controlled substance or opioids, I have checked an [place] report on this patient and there are no aberrancies noted in the prescribing history.??If on a controlled substance or opioid a drug screen was completed and reviewed within the last year, and if there has not been a drug screen completed we ordered one today to monitor higher risk, state monitored pain medication use. As part of providing excellent, safe, comprehensive care, the following was completed at our patient's visit: 1. A medication reconciliation and review to ensure accurate knowledge of current/active medications, including asking our patients to inform us about any sfni-hde-gyxrtyl medications or herbal remedies/nutritional supplements/alternative remedies. 2. A review to specifically ensure our patients have had annual screening for screening for depression, screening for tobacco use, and screening for unhealthy alcohol use. For concerning screenings had a discussion with the patient, provided patient education, and recommended follow-up with primary care provider when appropriate. If patient noted with a risk of falling, they received education on strength, gait, and balance training to prevent future risk of falling. Portions of this note may have been carried over from the previous visit and updated as appropriate. Please note this office utilizes paper charting in addition to the electronic medical record. A list of current medications, vitals, and PMH is available there as the clinical staff outside of myself do not have access to [employer] charting during the clinic day operations. As part of providing quality comprehensive care the current medications, vitals, and PMH were reviewed in the paper chart. Assessment and Plan Assessment and Plan (1) Lumbar stenosis with neurogenic claudication: (2) Lumbar spondylosis: (3) Thoracic spondylosis: (4) Right shoulder pain: Qualifiers: Chronicity: chronic Qualified Code(s): M25.511 - Pain in right shoulder; G89.29 - Other chronic pain (5) Myofascial pain: Plan will have [employer] meet with pt in regards to scs implant and adjustment defer medication management consider PT for myofascial pain next visit continue f/u with orthopedics for shoulder and knee workup f/u 14 weeks after implant
== END 2025-02-06 11:27 | disposition home or self-care (01) ==
LOC: PM 11:26
PROVIDERS: Visit Provider Anesthesiology
DX: M48.062 Spinal stenosis, lumbar region with neurogenic claudication (principal); M47.816 Spondylosis without myelopathy or radiculopathy, lumbar region; M47.814 Spondylosis without myelopathy or radiculopathy, thoracic region; M25.511 Pain in right shoulder; G89.29 Other chronic pain; M79.18 Myalgia, other site
CPT/HCPCS: G0463

== ENCOUNTER 2025-03-11 13:57 | Outpatient (OUT) | payer MEDICARE, SELFPAY ==
--- OUTSIDE RECORDS SUMMARY | 2024-10-08 10:45 | XMS_ITS ---
Author Organization [facility] Servic es Address [address] [place] [address] Care Team Providers Care Conference And Event Organiser Name Role Phone Radha Mcintosh Primary Care Provider Gissell Kaufman Unavailable [phone] REASON FOR VISIT 3 month f/u Encounters Encounter Location Date Provider Diagnosis [facility] [address] [place] [address] 10/08/2024 Radha Mcintosh Plan Of Treatment Next Appt Details Provider Name:Gissell Kaufman , 07/04/2025 02:20:00 PM, [address], [place], [address], Progress Notes * CATARINOGEOVANNAMERARYB:1975 ([age] yo F)Acc No.[id number]:10/08/2024 Behavioral Health Patient: Brent EMILY RIVERA Appointment Provider: Kaiden Mcintosh :1975 A ge:49 Y S ex:Female Date:10/08/2024 Address:[address], [place], [id number] Subjective: * Chief Complaints: * 3 month f/u * Electronic signature of MARIBEL Mckinney on 03/11/2025 at 02:03 PM EDT Sign off status: Pending * Appointment Provider: Kaiden Mcintosh Date: 0 10/08/2024 Generated for Joshua saunders/Debora/Yo on: 1 02:03 PM EDT
--- OUTSIDE RECORDS SUMMARY | 2025-02-21 06:35 | XMS_ITS ---
Author Organization [facility] Servic es Address [address] [place] [address] Care Team Providers Care Button Breaker Name Role Phone Radha Mcintosh Primary Care Provider KaufmanGisesll Unavailable [phone] Dr. Bob Ureña Unavailable [phone] REASON FOR VISIT FILLING #17- $100 DUE TODAY SFS LVL 2 Encounters Encounter Location Date Provider Diagnosis [facility] [address] [facility] [address] 2024 Bob Ureña Plan Of Treatment Next Appt Details Provider Name:Gissell Kaufman , 07/04/2025 02:20:00 PM, [address], [place], [address], Progress Notes * GEOVANNA TORIBIOADOB:1975 ([age] yo F)Acc No.[id number]:02/21/2025 Patient: EMILY MCINTOSH Provider: Hugo Ureña DDS :1975 A ge:49 Y S ex:Female Date:02/21/2025 Address:[address], [place], [id number] Pcp:Radha Mcintosh Subjective: * Chief Complaints: * F ILLING #17- $100 DUE TODAY SFS LVL 2 * Electronic signature of Dr. Bob Ureña , DMD, [id number] on 03/11/2025 at 02:03 PM EDT Sign off status: Pending * Provider: Hugo Ureña DDS Date: 0 02/21/2025 Generated for Joshua saunders/Debora/Yo on: 1 02:03 PM EDT
--- OUTSIDE RECORDS SUMMARY | 2025-03-11 14:03 | XMS_ITS | Encounter Summary ---
Author Organization [facility] Address [address] [place] [address] Care Team Providers Care Account Receivable Clerk Name Role Phone Diony Sharma MD Primary Care Provider [phone] Kenyetta Dove MD Unavailable [phone] Simón Ozuna MD Unavailable [phone] Amanda Montiel MD Unavailable [phone] Krish Hodge MD Unavailable [phone] Beny Hoskins MD Unavailable [phone] Encounter Details Date Type Department Care Team (Late st Contact Info) Description 11/09/2024 External Result Encounter [facility] External Department Unsolicited Shilpa Menendez, PA [address] [place] [address] Social History Tobacco Use Types Packs/Day Years [...] Care Team (Late st Contact Info) Description 02/11/2026 11:00 AM EDT Office [facility] [address] [place] [address] Kenyetta Dove MD [address] [place] [address] documented as of this encounter Procedures Procedure Name Priority Date/Time Associated Diagnosis Comments TRANSTHORACIC ECHO (TTE) COMPLETE 11/09/2024 8:58 AM EDT documented in this encounter Results * Transthoracic echo (TTE) complete (11/09/2024 8:58 AM EDT) Anatomical Region Laterality Modality Heart Ultrasound 11/09/2024 8:58 AM EDT Narrative 11/09/2024 4:45 PM EDT [facility] [address] [address] Echocardiogram Signed Patient: Lupe Pickard MR#: [id number] : 1975 Acct:[id number] Age/Sex: 49 / F ADM Date: 11/09/24 Loc: Room: Type: [facility] Attending Dr: Shilpa Menendez PA-C Ordering Provider: Shilpa Menendez PA-C Date of Service: 11/09/24/ ECH/ECH echo transthoracic: EDEMA, SOB Copies to: Selina Valverde MD, [facility] Shilpa Menendez PA-C BSA: 2.4 m2 BP: [...] 11/09/24 0858 Signed By: Selina Valverde MD, [facility] 11/09/24 1644 Procedure Note Selina Valverde MD - 11/09/2024 [facility] [place] [address] Echocardiogram Signed Patient: Lupe Pickard MMR#: [id number] : 1975Acct:[id number] Age/Sex: 49 / FADM Date: 11/09/24 Loc: Room:Type: [facility] Attending Dr: Shilpa Menendez PA-C Ordering Provider: Shilpa Menendez PA-C Date of Service: 11/09/24/ ECH/ECH echo transthoracic: EDEMA, SOB Copies to: Selina Valverde MD, [facility] Shilpa Menendez PA-C BSA: 2.4 m2 [...] 11/09/24 0858 Signed By: Selina Valverde MD, [facility] 11/09/24 1644 [facility] Loren SALAS CV ECHO PROCEDURES Final Res ult documented in this encounter Visit Diagnoses Not on filedocumented in this encounter Care Teams Account Receivable Clerk Relationship Specialty Start Date End Date Diony Sharma MD [address] [place] [address] PCP - General Internal Medicine 01/24/24 Kenyetta Dove MD [address] [place] [address] Referring Physician Endocrinology 08/01/24 Simón Ozuna MD [address] [place] [place] [address] Referring Physician Urology 08/01/24 Amanda Montiel MD [address] [place] [address] Obstetrics and Gynecology 08/01/24 Krish Hodge MD [address] [place] [address] Referring Physician Ophthalmology 08/01/24 Beny Hoskins MD [address] [place] [address] Referring Physician Gastroenterology 08/01/24 [facility] 08/01/24 documented as of this encounter
--- OUTSIDE RECORDS SUMMARY | 2025-03-11 14:03 | XMS_ITS | Encounter Summary ---
Author Organization [facility] Address [address] [place] [address] Care Team Providers Care Plaster Machine Operator Name Role Phone Diony Sharma MD Primary Care Provider [phone] Kenyetta Dove MD Unavailable [phone] Simón Ozuna MD Unavailable [phone] Amanda Montiel MD Unavailable [phone] Krish Hodge MD Unavailable [phone] Beny Hoskins MD Unavailable [phone] Reason for Visit * Reason Onset Date Comments lab results 12/10/2024 Encounter Details Date Type Department Care Team (Late st Contact Info) Description 12/10/2024 Results Follow-Up [facility] Internal Medicine [address] [place] [address] Omid Stevens, ELECTROPLATER [employer] [address] [place] [address] Rheumatoid factor, WILL, Protein electrophoresis, [...] ----- Message ----- From: Interface, Incoming Lab [facility] Background Sent: 12/10/2024 2:37 PM EDT To: [...] Description 02/11/2026 11:00 AM EDT Office Visit [facility] [place] [facility] [address] [place] [address] Kenyetta Dove MD [address] [place] [address] documented as of this encounter Visit Diagnoses Not on filedocumented in this encounter Care Teams Plaster Machine Operator Relationship Specialty Start Date End Date Diony Sharma MD [address] [facility] [address] [place] [address] PCP - General Internal Medicine 01/24/24 Kenyetta Dove MD [address] [place] [address] Referring Physician Endocrinology 08/01/24 Simón Ozuna MD [address] [place] [address] Referring Physician Urology 08/01/24 Amanda oMntiel MD [address] [facility] [address] [place] [address] Obstetrics and Gynecology 08/01/24 Krish Hodge MD [address] [place] [address] Referring Physician Ophthalmology 08/01/24 Beny Hoskins MD [address] [place] [address] [address] [place] [address] Referring Physician Gastroenterology 08/01/24 [facility] 08/01/24 documented as of this encounter
--- OUTSIDE RECORDS SUMMARY | 2025-03-11 14:03 | XMS_ITS | Encounter Summary ---
Author Organization [facility] Address [address] [place] [address] Phone Care Team Providers Care Carpet Cutter Name Role Phone Simón Davidson DO Primary Care Provider + Encounter Details Date Type Department Care Team (Late st Contact Info) Description 06/21/2022 Orders Only [facility] [address] [place] [address] Conversion, Onbase Social History Tobacco Use Types [...] on filedocumented in this encounter Care Teams Carpet Cutter Relationship Specialty Start Date End Date Simón Davidson DO [address] [facility] [place] [address] PCP - General 10/21/17 documented as of this encounter
--- OUTSIDE RECORDS SUMMARY | 2025-03-11 14:03 | XMS_ITS | Patient Health Record ---
Author Organization [facility] Servic es Address [address] [place] [address] Care Team Providers Care Timber Hand Name Role Phone Mcintosh Radha Primary Care Provider Gissell Kaufman Unavailable [phone] Dr. Bob Ureña Unavailable [phone] Mary Fu Unavailable [phone] Allergies No Known Allergies Reason For Referral No Information Medications Medication SIG (Take, Route, Frequency, Duration) Notes Start Date End Date Status Aspirin 81 81 MG Tablet Chewable 1 tablet Orally Once a day Not-Taking/PRN Topamax Not-Taking /PRN Skelaxin Not-Taking /PRN Amitiza Not-Taking /PRN Elavil Not-Taking /PRN Linzess 72 MCG Capsule 1 capsule at leas t 30 minutes before the first meal of the day on an empty stomach Orally Once a day Not-Taking/PRN Oyster Shell Calcium/D 500-5 MG-MCG Tablet 1 tablet with meals Orally Twice a day Not-Taking/[place] N Tramadol 50 mg tablet 2 tablets orally twice a day Not-Taking/PRN Baclofen 10 MG Tablet 1 tablet Orally Tw ice a day Not-Taking/PRN metroNIDAZOLE Not-Ta salomon/PRN Semaglutide-Weight Management 0.25 MG/0.5ML Solution Auto-injector 0.5 mL Subcutaneous Not-Eb ing/PRN Iron 325 (65 Fe) MG Tablet 1 tablet Orally 1x a day Active Propranolol HCl 20 MG Tablet 1 tablet Orally twice daily As needed Active Tylenol Extra Strength 500 MG Tablet 2 tablets Orally twice a day Active Cardizem CD 240 MG Capsule Extended Release 24 Hour 1 capsule Orally Once a day Active hydrOXYzine Pamoate 25 MG Capsule 1 capsule Orally every 6 hours as needed for anxiety 03/04/2023 Active Magnesium Oxide 400 MG Tablet 1 tablet Orally twice a day Active Escitalopram Oxalate 20 MG Tablet TAKE 1 TABLET Orally Once a day Active Liothyronine Sodium 5 MCG Tablet 2 tablet on an empty stomach Orally Once a day Active Turmeric Active Probiotic Active Super B Complex Acti ve Melatonin 10 MG Tablet as directed Orally Active SEROquel XR Not-Taki ng/PRN Cleocin 2 % Cream 1 application at bedtime Vaginal Once a day; Duration: 5 days 08/20/2014 Not-Taking/PRN Meclofenamate Sodium 50 MG Capsule 1 capsule Orally prn bleeding; Duration: 30 Not-Taking/PRN Vitamin D3 50 MCG (1999 UT) Capsule 1 capsule Orally Once a day Active oxyCODONE HCl 5 MG Tablet 1 tablet as needed Orally 2x a day Not-Taking/PRN Wellbutrin Not-Takin g/PRN Zoloft Not-Taking /PRN SEROquel Not-Taking /PRN Social History Tobacco Use: Social History Observation Description Date Details (start date - stop date) Former Smoker NA - NA Social History General Social Info Question Answer Notes Depression Screening (PHQ-9): Little int erest or pleasure in doing things Several days Feeling down, depressed, or hopeless Not [...] all Total Score 6 Intepretation Mild Depression Tobacco Screen: Are you a: former smoker How long has it been since you last smoked? 1-3 months Alcohol Screening: Did you have a drink containing alc ohol in the past year? No Points 0 Interpretation Negative Problems Problem Type SNOMED Code ICD Code Onset Dates Problem Status W/U Status Risk Notes Problem Generalized anxiety disorder (49411015) Generalized Anxiety Disorder (SANDRA) (F41.1) Active confirmed Problem Body mass index 40+ - morbidly obese (264048054) BMI 40.0-44.9, adult (Z68.41) Active confirmed Problem Depressive disorder (99127014) Unspecified Depressive Disorder (F32.9) Active confirmed Problem Post traumatic stress disorder (52668215) Post traumatic stress disorder (F43.10) Active confirmed Vital Signs Heart Rate 88 /min 10/24/2024 Oximetry 98 % 10/24/2024 Blood pressure diastolic 80 mm Hg 10/24/2024 Height 67.5 in 10/24/2024 Blood pressure systolic 130 mm Hg 10/24/2024 Weight 307.0 lbs 10/24/2024 BMI 47.37 kg/m2 10/24/2024 Encounters Encounter Location Date Provider Diagnosis [facility] [address] [place] [address] 05/24/2024 Radha Mcintosh Generalized Anxiety Disorder (SANDRA) F41.1 [facility] [address] [place] [address] 06/25/2024 Radha Mcintosh Generalized Anxiety Disorder (SANDRA) F41.1 [facility] [address] [place] [address] 01/09/2025 Radha Mcintosh Generalized Anxiety Disorder (SANDRA) F41.1 [facility] [address] [place] [address] 05/01/2024 Mary Fu Other dental procedure status Z98.818 ; Acute gingivitis, plaque induced K05.00 ; Encounter for dental examination and cleaning with abnormal findings Z01.21 ; Dental caries on pit and fissure surface penetrating into dentin K02.52 and Necrosis of pulp K04.1 [facility] [address] [place] [address] 11/01/2024 Gissell Kaufman Acute gingivitis, plaque induced K05.00 [facility] [address] [facility] [address] 04/18/2024 Radha Mcintosh Generalized Anxiety Disorder (SANDRA) F41.1 ; Unspecified Depressive Disorder F32.9 and Post traumatic stress disorder F43.10 [facility] [address] [place] [address] 10/24/2024 Radha Mcintosh Generalized Anxiety Disorder (SANDRA) F41.1 and Post traumatic stress disorder F43.10 [facility] [address] [place] [address] 07/18/2024 Radha Mcintosh Generalized Anxiety Disorder (SANDRA) F41.1 ; Unspecified Depressive Disorder F32.9 and Post traumatic stress disorder F43.10 [facility] [address] [place] [facility] [address] 01/16/2025 Radha Mcintosh Generalized Anxiety Disorder (SANDRA) [...] , 07/04/2025 02:20:00 PM, [address], [place], [address], Insurance Providers Payer Name Payer Address Payer Phone Subscriber Number Group Number Insured Name Patient Relationship to Insured Coverage Start Date Coverage End Date MEDICARE CGS [address] [place] [address] [id number] EMILY TORIBIO Self - patient is the insured 0 MEDICAID SEC TO [facility] [address] [place] [address] [id number] EMILY TORIBIO Self - patient is the insured 0 [place] [address] [place] [address] [id number] EMILY TORIBIO Self - patient is the insured 0 MEDICAID SEC TO [facility] [address] [place] [address] [phone] [id number] EMILY TORIBIO Self - patient is the [...]
--- OUTSIDE RECORDS SUMMARY | 2025-03-11 14:03 | XMS_ITS | Encounter Summary ---
Author Organization [facility] Address [address] [place] [address] Phone Care Team Providers Care Soil Conservation Teacher Name Role Phone Simón Davidson DO Primary Care Provider + Encounter Details Date Type Department Care Team (Late st Contact Info) Description 09/20/2022 Orders Only [facility] [address] [place] [address] Conversion, Onbase Social History Tobacco Use Types [...] on filedocumented in this encounter Care Teams Soil Conservation Teacher Relationship Specialty Start Date End Date Simón Davidson DO [address] [facility] [place] [address] PCP - General 10/21/17 documented as of this encounter
--- OUTSIDE RECORDS SUMMARY | 2025-03-11 14:03 | XMS_ITS | Encounter Summary ---
Author Organization [facility] Address [address] [place] [address] Phone Care Team Providers Care Slitter Helper Name Role Phone Simón Davidson DO Primary Care Provider + Encounter Details Date Type Department Care Team (Late st Contact Info) Description 11/05/2022 Orders Only [facility] [address] [place] [address] Conversion, Onbase Social History Tobacco Use Types [...] on filedocumented in this encounter Care Teams Slitter Helper Relationship Specialty Start Date End Date Simón Davidson DO [address] [facility] [place] [address] PCP - General 10/21/17 documented as of this encounter
--- OUTSIDE RECORDS SUMMARY | 2025-03-11 14:03 | XMS_ITS | Encounter Summary ---
Author Organization [facility] Address [address] [place] [address] Care Team Providers Care Fabric Sourcer Name Role Phone Diony Sharma MD Primary Care Provider [phone] Kenyetta Dove MD Unavailable [phone] Simón Ozuna MD Unavailable [phone] Amanda Montiel MD Unavailable [phone] Krish Hodge MD Unavailable [phone] Beny Hoskins MD Unavailable [phone] Encounter Details Date Type Department Care Team (Late st Contact Info) Description 02/22/2024 Orders Only [facility] [place] [facility] [address] [place] [address] Kenyetta Dove MD [address] [place] [address] Social History Tobacco Use Types Packs/Day Years [...] EDT Office Visit [facility] [place] [facility] [address] [place] [address] Kenyetta Dove MD [address] [place] [address] documented as of this encounter Procedures Procedure [...] on filedocumented in this encounter Care Teams Fabric Sourcer Relationship Specialty Start Date End Date Diony Sharma MD [address] [place] [address] PCP - General Internal Medicine 01/24/24 Kenyetta Dove MD [address] [place] [address] Referring Physician Endocrinology 08/01/24 Simón [place] MD [address] [place] [address] Referring Physician Urology 08/01/24 Amanda Montiel MD [address] [place] [address] Obstetrics and Gynecology 08/01/24 Krish Hodge MD [address] [place] [address] Referring Physician Ophthalmology 08/01/24 Beny Hoskins MD [address] [place] [address] [address] [place] [address] Referring Physician Gastroenterology 08/01/24 [facility] 08/01/24 documented as of this encounter
--- OUTSIDE RECORDS SUMMARY | 2025-03-11 14:03 | XMS_ITS | Clinical Summary ---
Author Organization [facility] Address [address] [place] [address] Care Team Providers Care Director Of Rooms Name Role Phone Diony Sharma MD Primary Care Provider [phone] Kenyetta Dove MD Unavailable [phone] Simón Ozuna MD Unavailable [phone] Amanda Montiel MD Unavailable [phone] Krish Hodge MD Unavailable [phone] Beny Hoskins MD Unavailable [phone] Allergies No known active allergies Medications B Hwhuuvo-Nrnloe-WC (Super Quints B-50) tablet Take by mouth [...] Take 20 mg by mouth Daily Active cholecalciferol (Vitamin D-3) 50 MCG (1999 UT) capsuleIndications :Primary osteoarthritis involving multiple joints Take [...] Take 1 tablet by mouth Daily Active HYDROcodone-acetam inophen ([place]) 5-325 MG tabletIndications: Acute pain of left knee Take 1-2 tablets by mouth every 6 (six) hours if needed for severe pain 42 tablet 01/23/20 25 Active liothyronine (Cytomel) 5 MCG tabletIndications: Postoperative hypothyroidism Take 1 tablet (5 mcg) by mouth Daily 90 tablet 3 02/13/20 25 026 Active levothyroxine (Synthroid, Levoxyl) 125 MCG tabletIndications: Postoperative hypothyroidism Take 1 tablet (125 mcg) by mouth Daily 90 tablet 3 02/13/20 25 026 Active metroNIDAZOLE (Flagyl) 500 MG tabletIndications: Bacterial vaginitis Take 1 tablet (500 mg) by mouth in the morning and 1 tablet (500 mg) before bedtime. Do all this for 7 days. 14 tablet 03/05/20 25 025 Active clindamycin (Cleocin) 2 % vaginal creamIndications:B acterial vaginitis Insert 1 applicator into the vagina at bedtime for 7 days 40 g 03/05/20 25 025 Active levothyroxine (Synthroid, Levoxyl) 125 MCG tabletIndications: Postoperative hypothyroidism Take 1 tablet (125 mcg) by mouth Daily 90 tablet 3 08/15/19 25 025 Discontin ued(Reord er) liothyronine (Cytomel) 5 MCG tabletIndications: Acquired hypothyroidism TAKE 1 TABLET BY MOUTH 2 TIMES A DAY 180 tablet 1 01/02/20 25 025 Discontin ued(Reord er) Active Problems [...] Encounters Date Type Department Care Team Description 03/04/2025 Refill [facility] [address] [place] [phone] Ashley Araya LPN Bacterial vaginitis 02/12/2025 2:45 PM EDT Office Visit SAMANTHA WARRENN [address] [place] [address] Amanda Montiel MD Hormone imbalance; Pelvic pain in female 02/12/2025 2:00 PM EDT Ancillary Procedure [facility] [address] [place] [phone] Pelvic pain in female 02/12/2025 11:10 AM EDT Office Visit [facility] [address] [place] [phone] Kenyetta Dove MD Postoperative hypothyroidism (Primary Dx); Abnormal cortisol level; Encounter for dietary consultation; Vitamin D deficiency; Class 3 severe obesity due to excess calories without serious comorbidity with body mass index (BMI) of 50.0 to 59.9 in adult ([facility]) 02/12/2025 Travel 02/12/2025 External Result Encounter [facility] External Department Unsolicited Provider, Generic External Data 01/31/2025 Results Follow-Up SAMANTHA FERGUSON [address] [place] [address] Amanda Montiel MD IGP, APT HPV,RFX 16/18,45, Testosterone, free, total, NuSwab Vaginitis Plus (VG+), Additional followed-up results: 11 01/31/2025 Orders Only [facility] [place] [facility] [address] [place] [address] Diony Benz MD 01/29/2025 3:15 PM EDT Office Visit SAMANTHA FERGUSON [address] [place] [phone] Amanda Montiel MD Encounter for gynecological examination without abnormal finding (Primary Dx); Vaginitis and vulvovaginitis; Cervicitis and endocervicitis; Acute vaginitis; Bacterial vaginitis; Vaginal odor; Vaginal discharge; Vaginal irritation; Encounter for screening for cervical cancer; Hormone imbalance 01/29/2025 Travel 01/22/2025 [facility] [place] [facility] [address] [place] [address] Diony Sharma MD Acute pain of left knee 01/21/2025 Refill [facility] [place] [facility] [address] [place] [address] Dalia Mar NP Acute pain of left knee 01/18/2025 Orders Only [facility] [place] [facility] [address] [place] [address] Diony Benz MD 01/11/2025 1:30 PM EDT Office Visit [facility] [address] [place] [phone] Dalia Mar [employer] Acute pain of left knee (Primary Dx) 01/11/2025 Travel 01/01/2025 Refill [facility] [place] [facility] [address] [place] [phone] Kenyetta Dove MD Acquired hypothyroidism 12/20/2024 3:00 PM EDT Office Visit [facility] [address] [place] [phone] Shilpa Menendez PA Bilateral lower extremity edema (Primary Dx); Hepatomegaly 12/20/2024 Travel 12/20/2024 Results Follow-Up [facility] [address] [place] [address] Shilpa Menendez PA CT abdomen pelvis w IV contrast 12/19/2024 11:45 AM EDT Ancillary Procedure [facility] [place] [facility] [address] [phone] Vitamin D deficiency (Primary Dx) 12/19/2024 Travel 12/13/2024 10:45 AM EDT Office Visit [facility] [address] [place] [phone] Diony Sharma MD Bilateral lower extremity edema (Primary Dx); Pulmonary hypertension (HCC); Dyspnea, unspecified type; Essential hypertension ; Medicare annual wellness visit, subsequent; ACP (advance care planning); Obstructive sleep apnea syndrome; Pain of upper abdomen 12/13/2024 Travel 12/10/2024 Results Follow-Up [facility] [address] [place] [phone] Omid Stevens, [employer] Rheumatoid factor, WILL, Protein electrophoresis, serum, FREE K+L LT CHAINS, QN, S 12/10/2024 Results Follow-Up [facility] [address] [place] [phone] Omid Stevens, [employer] Hemoglobin a1c with eag from Last 3 Months Immunizations Immunization Administration [...] Sign Reading Time Taken Comments Blood Pressure 122/76 02/12/2025 2:52 PM EDT Pulse 85 02/12/2025 11:06 AM EDT Temperature - - Respiratory Rate 18 02/12/2025 11:06 AM EDT Oxygen Saturation 95% 02/12/2025 11:06 AM EDT Inhaled Oxygen Concentration - - Weight 148 kg (326 lb) 02/12/2025 2:52 PM EDT Height 170.2 cm (5' 7 ) 02/12/2025 11:06 AM EDT Body Mass Index 51.06 02/12/2025 11:06 AM EDT Plan of Treatment Upcoming Encounters Date Type Department Care Team (Late st Contact Info) Description 02/11/2026 11:00 AM EDT Office Visit [facility] [place] [facility] [address] [place] [address] Kenyetta Dove MD [address] [place] [address] Health Maintenance Due Date Last Done Comments CT Colonography 1975 Colonoscopy 1975 Colorectal Cancer Screening 1975 FIT-DNA 1975 FIT 1975 FOBT 1975 Sigmoidoscopy 1975 Pap Smear 04/04/2001 04/04/1998 Influenza Vaccine (#1) 2025 Medicare Annual Wellness (AWV) 01/29/2026 01/29/2025 , 12/13/2024, 12/31/2021 Mammogram 02/12/2026 02/12/2025, 01/20/2024, 06/2022 Cervical Cancer Screening 01/29/2030 HPV/Cotest 01/29/2030 01/29/2025, 11/07/2018 Procedures Procedure Name Priority Date/Time Associated Diagnosis Comments US PELVIS TRANSVAGINAL Routine 02/12/2025 2:35 PM EDT Pelvic pain in female BI MAMMOGRAM SCREENING TOMOSYNTHESIS BILATERAL 02/12/2025 9:28 AM EDT INSULIN Routine 02/06/2025 1:21 PM EDT Hormone imbalance T3, TOTAL Routine 02/06/2025 1:21 PM EDT Hormone imbalance T3, FREE Routine 02/06/2025 1:21 PM EDT Hormone imbalance HEMOGLOBIN A1C Routine 02/06/2025 1:21 PM EDT Hormone imbalance ESTRADIOL Routine 02/06/2025 1:21 PM EDT Hormone imbalance LH Routine 02/06/2025 1:21 PM EDT Hormone imbalance PROGESTERONE Routine 02/06/2025 1:21 PM EDT Hormone imbalance TESTOSTERONE FREE AND TOTAL Routine 02/06/2025 1:21 PM EDT Hormone imbalance T4, FREE Routine 02/06/2025 1:21 PM EDT Hormone imbalance FSH Routine 02/06/2025 1:21 PM EDT Hormone imbalance TSH Routine 02/06/2025 1:21 PM EDT Hormone imbalance GENITAL MYCOPLASMAS CESAR, SWAB Routine 01/29/2025 12:00 [...] lower extremity edema Pain of upper abdomen from Last 3 Months Results * US pelvis transvaginal (02/12/2025 2:35 PM EDT) Anatomical Region Laterality Modality Pelvis Ultrasound Study GA Study Date Study SNEHAL Working SNEHAL (Source) 02/12/2025 Narrative 02/18/2025 3:35 PM EDT Images from the original result were not included. Obstetrics & Gynecology [address] [facility] [address], [address] [address] [place] [address] - - - - - - - - - - - - - - - - - - - - - - - - - - - - - - - - - - - - - - - - - - - - - - - - - - - - - - - - - - - - - - - - - - Pelvic Ultrasound Patient name: Lupe Pickard : 1975 (49 y.o.) Date of exam: 02/12/25 - - - - - - - - - - - - - - - - - - - - - - - - - - - - - - - Indication: pelvic pain Surgical History: Hysterectomy, oophorectomy-unknown which ovary Method: Transabdominal and transvaginal ultrasound examination View: limited by body habitus - - - - - - - - - - - - - - - - - - - - - - - - - - - - - - - Findings: Uterus: Surgically absent The vaginal cuff is normal appearing. - - - - - - - - - - - - - - - - - - - - - - - - - - - - - - - Right ovary: Not visualized Left ovary: Not visualized - - - - - - - - - - - - - - - - - - - - - - - - - - - - - - - Impression: The uterus is surgically absent. The vaginal cuff appears normal. Ovaries are not visualized. Ordering/Reading Provider: Amanda Montiel M.D. Microbiological Analyst: Carolyn Palacio RDMS us Amanda Montiel MD [facility] US PROCEDURES Final Result * Bilateral screening mammogram with tomosynthesis (02/12/2025 9:28 AM EDT) Anatomical Region Laterality Modality Breast Bilateral Mammography 02/12/2025 9:28 AM EDT Impressions 02/12/2025 9:57 AM EDT NO MAMMOGRAPHIC EVIDENCE OF MALIGNANCY. ROUTINE FOLLOW-UP IS RECOMMENDED IN ONE YEAR. RESULT CODE: 1 Negative DENSITY CODE: 1 (<25% glandular) The breasts are almost entirely fatty. FOLLOW UP: 1YR The false-negative rate of mammography is approximately 10-percent. Management of a palpable abnormality must be based on clinical grounds. Patient was entered into a reminder system with a target due date for the next mammogram. Impression dictated by: Larry Perez M.D. 02/12/2025 9:55 AM Dictation Location: [facility] Dictated By: Larry Perez MD 02/12/25927 Signed By: <Electronically signed by Larry Perez MD in OV> 02/12/2555 Narrative 02/12/2025 9:57 AM EDT [facility] [address] [place] [address] Mammography Report Signed Patient: Lupe Pickard MR#: [id number] : 1975 Acct:[id number] Age/Sex: 49 / F Adm Date: 02/11/25 Loc: [place] Room: Type: DEP CLI Attending Dr: Referral Self Ordering Provider: SELF,REFERRAL Date of Service: 02/11/25 Procedure(s): MM screening mammo BI w/CAD Accession Number(s): ([id number]) MM/MM screening mammo BI w/CAD: SCREENING Copies to: Diony Sharma MD SELF,REFERRAL CLINICAL DATA: Screening for malignancy. SCREENING MAMMOGRAM - FULL FIELD DIGITAL WITH TOMOSYNTHESIS AND CAD COMPARISON:Priors dating back to 2020 Tomosynthesis craniocaudal and mediolateral oblique views of both breasts were obtained using low- dose digital technique. This examination was reviewed with the aid of CAD. The breast tissue is almost entirely fatty. There are no dominant masses, typically malignant calcifications or architectural distortion. There has been no significant interval change. MM/MM screening mammo BI w/CAD Procedure Note Radiology, Radiologist, - [facility] [place] [address] Mammography Report Signed Patient: Lupe Pickard MMR#: [id number] : 1975Acct:[id number] Age/Sex: 49 / FAdm Date: 02/11/25 Loc: [place] Room:Type: DEP CLI Attending Dr: Referral Self Ordering Provider: SELF,REFERRAL Date of Service: 02/11/25 Procedure(s): MM screening mammo BI w/CAD Accession Number(s): ([id number]) MM/MM screening mammo BI w/CAD:SCREENING Copies to: Diony Sharma MD SELF,REFERRAL CLINICAL DATA: Screening for malignancy. SCREENING MAMMOGRAM - FULL FIELD DIGITAL WITH TOMOSYNTHESIS AND CAD COMPARISON:Priors dating back to 2020 Tomosynthesis craniocaudal and mediolateral oblique views of both breastswere obtained using low- dose digital technique. This examination was reviewed with the aid ofCAD. The breast tissue is almost entirely fatty. There are no dominant masses,typically malignant calcifications or architectural distortion. There has been no significantinterval change. MM/MM screening mammo BI w/CAD IMPRESSION: NO MAMMOGRAPHIC EVIDENCE OF MALIGNANCY. ROUTINE FOLLOW-UP IS RECOMMENDED IN ONE YEAR. RESULT CODE: 1 Negative DENSITY CODE: 1 (<25% glandular) The breasts are almost entirely fatty. FOLLOW UP: 1YR The false-negative rate of mammography is approximately 10-percent. Management of a palpable abnormality must be based on clinical grounds. Patient was entered into a reminder system with a target due date for thenext mammogram. Impression dictated by: Larry Perez M.D. 02/12/2025 9:55 AM Dictation Location: [facility] Dictated By: Larry Perez MD 02/12/2528 Signed By: <Electronically signed by Larry Perez MD in OV> 02/12/25 09 Generic External Data Provider IM BI PROCEDURES Final Result * Insulin, fasting (02/06/2025 1:21 PM EDT) Insulin 17.8 2.6 - 24.9 uIU/mL [facility] Blood Venous blood specimen / Unknown 02/06/2025 1:21 PM EDT 02/06/2025 Narrative [facility] - 02/12/2025 6:06 AM EDT Performed at: [facility] [address] [id number] Surgical Manager: Ramirez Ca PhD, Phone: [phone] Amanda Montiel MD LAB BLOOD ORDERABLES Final Res ult [facility] * Progesterone (02/06/2025 1:21 PM EDT) Progesterone 0.1 ng/mL [facility] Comment: Follicular phase 0.1 - 0.9 Luteal phase 1.8 - 23.9 Ovulation phase 0.1 - 12.0 First trimester 11.0 - 44.3 Second trimester 25.4 - 83.3 Third trimester 58.7 - 214.0 Postmenopausal 0.0 - 0.1 Blood Venous blood specimen / Unknown 02/06/2025 1:21 PM EDT 02/06/2025 Narrative [facility] - 02/12/2025 6:06 AM EDT Performed at: 03 [facility] [address], [place] [id number] Surgical Manager: Natanael Tilley MD, Phone: [phone] Amanda Montiel MD LAB BLOOD ORDERABLES Final Res ult Performing Organization Address City/[facility] Co de Phone Number [facility] * Estradiol (02/06/2025 1:21 PM EDT) [facility] Estradiol 17.6 pg/mL [facility] Comment: Adult Female Range Follicular phase 12.5 - 166.0 Ovulation phase 85.8 - 498.0 Luteal phase 43.8 - 211.0 Postmenopausal <6.0 - 54.7 1st trimester 215.0 - >4300.0 [place] ECLIA methodology Blood Venous blood specimen / Unknown 02/06/2025 1:21 PM EDT 02/06/2025 Narrative [facility] - 02/12/2025 6:06 AM EDT Performed at: 03 - [facility] [employer] [address], [place] [id number] Surgical Manager: Natanael Tilley MD, Phone: [phone] us Amanda Montiel MD LAB BLOOD ORDERABLES Final Res ult [facility] * (ABNORMAL) Testosterone, free, total (02/06/2025 1:21 PM EDT) TESTOSTERONE <3(L) 4 - 50 ng/dL [facility] Free Testost Direct 0.5 0.0 - 4.2 pg/mL [facility] Blood Venous blood specimen / Unknown 02/06/2025 1:21 PM EDT 02/06/2025 Narrative [facility] - 02/12/2025 6:06 AM EDT Performed at: - [address] [id number] Surgical Manager: Ramirez Ca PhD, Phone: [phone] Performed at: [address] [id number] Surgical Manager: Roger Kenny MD, Phone: [phone] us Amanda Motniel MD LAB BLOOD ORDERABLES Final Res ult Performing Organization Address [facility] Co de Phone Number [facility] * T3, free (02/06/2025 1:21 PM EDT) T3, FREE 3.2 2.0 - 4.4 pg/mL [facility] Blood Venous blood specimen / Unknown 02/06/2025 1:21 PM EDT 02/06/2025 Narrative [facility] - 02/12/2025 6:06 AM EDT Performed at: - [address] [id number] Surgical Manager: Ramirez Ca PhD, Phone: [phone] us Amanda Montiel MD LAB BLOOD ORDERABLES Final Res ult Performing Organization Address City/[facility]/ZIP Co de Phone Number [facility] * T3 (02/06/2025 1:21 PM EDT) T3 Triiodothyronine 128 71 - 180 ng/dL [facility] Blood Venous blood specimen / Unknown 02/06/2025 1:21 PM EDT 02/06/2025 Narrative [facility] - 02/12/2025 6:06 AM EDT Performed at: - [facility] [id number] Surgical Manager: Ramirez Ca PhD, Phone: [phone] us Amanda Montiel MD LAB BLOOD ORDERABLES Final Res ult Performing Organization Address City/[facility] de Phone Number [facility] * TSH (02/06/2025 1:21 PM EDT) TSH 2.490 0.450 - 4.500 uIU/mL [facility] Blood Venous blood specimen / Unknown 02/06/2025 1:21 PM EDT 02/06/2025 Narrative [facility] - 02/12/2025 6:06 AM EDT Performed at: - [facility] [address] [facility], [address] [place] [id number] Surgical Manager: Natanael Tilley MD, Phone: [phone] us Aamnda Montiel MD LAB BLOOD ORDERABLES Final Res ult Performing Organization Address [facility] de Phone Number [facility] * T4, free (02/06/2025 1:21 PM EDT) T4Free(Direct) 1.02 0.82 - 1.77 ng/dL [facility] Blood Venous blood specimen / Unknown 02/06/2025 1:21 PM EDT 02/06/2025 Narrative [facility] - 02/12/2025 6:06 AM EDT Performed at: [facility] [address], [place] [id number] Surgical Manager: Natanael Tilley MD, Phone: [phone] us Amanda Montiel MD LAB BLOOD ORDERABLES Final Res ult Performing Organization Address [facility] de Phone Number [facility] * (ABNORMAL) Hemoglobin A1c (02/06/2025 1:21 PM EDT) HgbA1C 6.4(H) 4.8 - 5.6 % [facility] Comment: Prediabetes: 5.7 - 6.4 Diabetes: >6.4 Glycemic control for adults with diabetes: <7.0 Blood Venous blood specimen / Unknown 02/06/2025 1:21 PM EDT 02/06/2025 Narrative [facility] - 02/12/2025 6:06 AM EDT Performed at: - [address] [id number] Surgical Manager: Ramirez Ca PhD, Phone: [phone] Amanda Montiel MD LAB BLOOD ORDERABLES Final Res ult Performing Organization Address [facility] de Phone Number [facility] * Luteinizing hormone (02/06/2025 1:21 PM EDT) LH 5.1 mIU/mL [facility] Comment: Adult Female Range Follicular phase 2.4 - 12.6 Ovulation phase 14.0 - 95.6 Luteal phase 1.0 - 11.4 Postmenopausal 7.7 - 58.5 Blood Venous blood specimen / Unknown 02/06/2025 1:21 PM EDT 02/06/2025 Narrative [facility] - 02/12/2025 6:06 AM EDT Performed at: 03 - [facility] [address] , [address], [place], [place] [id number] Surgical Manager: Natanael Tilley MD, Phone: [phone] us Amanda Montiel MD LAB BLOOD ORDERABLES Final Res ult Performing Organization Address [facility] de Phone Number [facility] * Follicle stimulating hormone (02/06/2025 1:21 PM EDT) FSH 10.3 mIU/mL [facility] Comment: Adult Female Range Follicular phase 3.5 - 12.5 Ovulation phase 4.7 - 21.5 Luteal phase 1.7 - 7.7 Postmenopausal 25.8 - 134.8 Blood Venous blood specimen / Unknown 02/06/2025 1:21 PM EDT 02/06/2025 Narrative [facility] - 02/12/2025 6:06 AM EDT Performed at: - [facility] [address], [address], [place], [place] [id number] Surgical Manager: Natanael Tilley MD, Phone: [phone] Amanda Montiel MD LAB BLOOD ORDERABLES Final Res ult Performing Organization Address [facility] Co de Phone Number [facility] * GENITAL MYCOPLASMAS CESAR, SWAB (01/29/2025 12:00 AM EDT) MYCOPLASMA GENITALIUM Negative Negative [facility] MYCOPLASMA HOMINIS Negative Negative [facility] UREAPLASMA SPP Negative Negative [facility] Vaginal Fluid 01/29/2025 01/29/2025 Narrative [facility] - 02/01/2025 3:07 PM EDT Test(s) 257734-Ajotlbmqas hominis CESAR; 260857-Agxjfyklbp spp CESAR was developed and its performance characteristics determined by [facility]. It has not been cleared or approved by the Food and Drug Administration. Performed at: - [address] [id number] Surgical Manager: Roger Kenny MD, Phone: [phone] Amanda Montiel MD LAB CYTOLOGY ORDERABLES Final Result Performing Organization Address [facility] Co de Phone Number [facility] * IGP, APT HPV,RFX 16/18,45 (01/29/2025 12:00 AM EDT) Diagnosis: Comment [facility] Comment:NEGATIVE FOR INTRAEP ITHELIAL LESION OR MALIGNANCY. Specimen Adequacy: Comment [facility] Comment:Satisfactory for chance luation. No endocervical component is identified. Clinician Provided ICD10: Comment [facility] Comment: Z01.419 Z12.4 Performed By: Comment [facility] Comment:Keisha Olivo Cytol ogelidia (ASCP) Cyto Comments . [facility] Note: Comment [...] 01/31/2025 5:07 PM EDT Performed at: - [address] [id number] Surgical Manager: Laila Connelly MD, Phone: [phone] Performed at: - [address] [id number] Surgical Manager: Laila Connelly MD, Phone: [phone] Specimen Comment: No. of containers..01 ThinPrep Vial us Amanda Montiel MD LAB BLOOD ORDERABLES Final Res ult [facility] * NuSwab Vaginitis Plus (VG+) (01/29/2025 [...] [facility] - 02/01/2025 3:07 PM EDT Test(s) 081082- Atopobium vaginae; 400255- BVAB 2; 142267- Megasphaera 1 was developed and its performance characteristics determined by [facility]. It has not been cleared or approved by the Food and Drug Administration. Test(s) 235082-Mvtcidg albicans, CESAR; 994700-Wagoziq glabrata, CESAR was developed and its performance characteristics determined by [facility]. It has not been cleared or approved by the Food and Drug Administration. Performed at: 01 - [address] [id number] Surgical Manager: Roger Kenny MD, Phone: [phone] Amanda Montiel MD LAB MICROBIOLOGY - GENERAL ORD ERABLES Final Result [facility] * MRI KNEE RIGHT WO CONTRAS (01/25/2025 [...] ELECTRONICALLY SIGNED BY: Diony Wetzel DO Shilpa Pimentel Shon SALAS IMG CT PROCEDURES Final Resu lt from Last 3 Months Insurance MEDICARE MEDICAID [place] Care Teams Director Of Rooms Relationship Specialty Start Date End Date Diony Sharma MD [address] [facility] [address] [place] [address] PCP - General Internal Medicine 01/24/24 Kenyetta Dove MD [address] [place] [address] Referring Physician Endocrinology 08/01/24 Simón Ozuna MD [address] [place] [address] Referring Physician Urology 08/01/24 Amanda Montiel MD [address] [facility] [address] [place] [address] Obstetrics and Gynecology 08/01/24 Krish Hodge MD [address] [place] [address] Referring Physician Ophthalmology 08/01/24 Beny Hoskins MD [address] [place] [address] [address] [place] [address] Referring Physician Gastroenterology 08/01/24 [facility] Mental Health 08/01/24
--- OUTSIDE RECORDS SUMMARY | 2025-03-11 14:03 | XMS_ITS | Encounter Summary ---
Author Organization [facility] Address [address] [place] [address] Care Team Providers Care Improvement Rn Name Role Phone Simón Davdison MD Primary Care Provider [phone] Diony Sharma MD Primary Care Provider [phone] Kenyetta Dove MD Unavailable [phone] Simón Ozuna MD Unavailable [phone] Amanda Montiel MD Unavailable [phone] Krish Hodge MD Unavailable [phone] Beny Hoskins MD Unavailable [phone] Encounter Details Date Type Department Care Team (Late st Contact Info) Description 12/29/2022 External Result Encounter [facility] External Department Unsolicited Amanda Montiel MD [address] [facility] [address] [place] [address] Social History Tobacco Use Types Packs/Day Years [...] Office Visit [facility] [place] [facility] [address] [place] [address] Kenyetta Dove MD [address] [place] [address] documented as of this encounter Procedures Procedure [...] Neff Jr., D.OJaycee12/29/2022 2:57 PM Dictation Location: [facility] Transcribed By: [facility] 12/29/221456 Dictated By: Bob Neff Jr, DO 12/29/221456 Signed By: <Electronically signed by Bob Neff Jr, DO in OV> 12/29/22 1457 Narrative 12/30/2022 7:28 AM EDT [facility] Main [address] [address] Mammography Report Signed Patient: Lupe Pickard MR#: [id number] : 1975 Acct:[id number] Age/Sex: 47 / F ADM Date: 12/29/22 Loc: [place] Room: Type: [facility] Attending Dr: Amanda Montiel MD Copies [...] Note Radiology, Radiologist, MD - 12/30/2022 [facility] Main [place] [address] [place] [address] Mammography Report Signed Patient: Lupe Pickard MMR#: [id number] : 1975Acct:[id number] Age/Sex: 47 / FADM Date: 12/29/22 Loc: [place] Room:Type: [facility] Attending Dr: Amanda Montiel MD Copies [...] Neff Jr., D.OJaycee12/29/2022 2:57 PM Dictation Location: [facility] Transcribed By: P[facility] 12/29/22 1457 Dictated By: Bob Neff Jr, DO 12/29/22 1457 Signed By: <Electronically signed by Bob Neff Jr, DO inOV> 12/29/22 1457 us Amanda Montiel MD IMG BI PROCEDURES Final Result documented in this encounter Visit Diagnoses Not on filedocumented in this encounter Care Teams Improvement Rn Relationship Specialty Start Date End Date Simón Davidson MD [address] [place] [address] PCP - General Test Fixture Designer 01/16/24 01/23/24 Diony Sharma MD [address] [place] [address] PCP - General Internal Medicine 01/24/24 Kenyetta oDve MD [address] [facility] [place] [address] Referring Physician Endocrinology 08/01/24 Simón Ozuna MD [address] [place] [address] Referring Physician Urology 08/01/24 Amanda Montiel MD [address] [place] [address] Obstetrics and Gynecology 08/01/24 Krish Hodge MD [address] [place] [address] Referring Physician Ophthalmology 08/01/24 Beny Hoskins MD [address] [place] [address] Referring Physician Gastroenterology 08/01/24 [facility] Mental Health 08/01/24 documented as of this encounter
--- OUTSIDE RECORDS SUMMARY | 2025-03-11 14:03 | XMS_ITS | Encounter Summary ---
Author Organization [facility] Address [address] [place] [address] Care Team Providers Care Slitter And Cutter Operator Name Role Phone Diony Sharma MD Primary Care Provider [phone] Kenyetta Dove MD Unavailable [phone] Simón Ozuna MD Unavailable [phone] Amanda Montiel MD Unavailable [phone] Krish Hodge MD Unavailable [phone] Beny Hoskins MD Unavailable [phone] Encounter Details Date Type Department Care Team (Late st Contact Info) Description 12/10/2024 Results Follow-Up [facility] Internal Medicine [address] [facility] [address] [place] [address] Omid Stevens, RECORDS TECHNICIAN [address] [facility] [address] [place] [address] Hemoglobin a1c with eag Social [...] [place] [facility] [address] [place] [address] Kenyetta Dove MD [address] [place] [address] documented as of this encounter Visit Diagnoses Not on filedocumented in this encounter Care Teams Slitter And Cutter Operator Relationship Specialty Start Date End Date Diony Sharma MD [address] [place] [address] PCP - General Internal Medicine 01/24/24 Kenyetta Dove MD [address] [place] [address] Referring Physician Endocrinology 08/01/24 Simón Ozuna MD [address] [place] [address] Referring Physician Urology 08/01/24 Amanda Montiel MD [address] [place] [address] Obstetrics and Gynecology 08/01/24 Krish Hodge MD [address] [place] [address] Referring Physician Ophthalmology 08/01/24 Beny Hoskins MD [address] [place] [address] [address] [place] [address] Referring Physician Gastroenterology 08/01/24 [facility] Mental Health 08/01/24 documented as of this encounter
--- OUTSIDE RECORDS SUMMARY | 2025-03-11 14:03 | XMS_ITS | Encounter Summary ---
Author Organization [facility] Address [address] [place] [address] Care Team Providers Care Field Staff Name Role Phone Diony Sharma MD Primary Care Provider [phone] Kenyetta Dove MD Unavailable [phone] Simón Ozuna MD Unavailable [phone] Amanda Montiel MD Unavailable [phone] Krish Hodge MD Unavailable Beny Hoskins MD Unavailable [phone] Encounter Details Date Type Department Care Team (Late st Contact Info) Description 01/18/2025 Orders Only [facility] [address] [facility] [address] [place] [address] Diony Benz MD [address] [place] [address] Social History Tobacco Use Types [...] [facility] [address] [place] [address] Kenyetta Dove MD [address] [place] [address] documented as of this encounter Procedures [...] on filedocumented in this encounter Care Teams Field Staff Relationship Specialty Start Date End Date Diony Sharma MD [address] [place] [address] PCP - General Internal Medicine 01/24/24 Kenyetta Dove MD [address] [place] [address] Referring Physician Endocrinology 08/01/24 Simón Ozuna MD [address] [place] [address] Referring Physician Urology 08/01/24 Amanda Montiel MD [address] [place] [address] Obstetrics and Gynecology 08/01/24 Krish Hodge MD [address] [place] [address] Referring Physician Ophthalmology 08/01/24 Beny Hoskins MD [address] [place] [address] Referring Physician Gastroenterology 08/01/24 [facility] Mental Health 08/01/24 documented as of this encounter
--- OUTSIDE RECORDS SUMMARY | 2025-03-11 14:03 | XMS_ITS | Clinical Summary ---
Author Organization [facility] Address [address] [facility] [place] [address] Care Team Providers Care Endocrinology Specialist Name Role Phone Damian Lakhani MD Unavailable [phone] Source Comments The following information is NOT included in Care Everywhere downloads:Psychiatric notes, ECG results, Cardiac Rehab notes, Pulmonary Function notes, data from [employer] (includes but not limited toPregnancy data,audiograms, eye exams, pre-surgical evaluation notes, well-child exam data).[facility] Allergies No known active allergies Medications tramadol [...] Insurance [address] [place] [address] MEDICAID MEDICARE Care Teams Endocrinology Specialist Relationship Specialty Start Date End Date Damian Lakhani MD [address] [place], [place] [id number] Physician Orthopaedic Surgery 10/02/22
--- OUTSIDE RECORDS SUMMARY | 2025-03-11 14:03 | XMS_ITS | Encounter Summary ---
Author Organization [facility] Address [address] [place] [address] Care Team Providers Care Deck Engineer Name Role Phone Simón Davidson MD Primary Care Provider [phone] Diony Sharma MD Primary Care Provider [phone] Kenyetta Dove MD Unavailable [phone] Simón Ozuna MD Unavailable [phone] Amanda Montiel MD Unavailable [phone] Krish Hodge MD Unavailable [phone] Beny Hoskins MD Unavailable [phone] Encounter Details Date Type Department Care Team (Late st Contact Info) Description 01/23/2024 Orders Only [facility] [place] [facility] [address] [place] [address] A, Unknown Practice [address] [place] [address] Social History Tobacco Use Types Packs/Day [...] [facility] [place] [facility] [address] [place] [address] Kenyetta Dove MD [address] [place] [address] documented as of this encounter Procedures [...] on filedocumented in this encounter Care Teams Deck Engineer Relationship Specialty Start Date End Date Simón Davidson MD [address] [place] [address] PCP - General Civil Attorney 01/16/24 01/23/24 Diony Sharma MD [address] [place] [address] PCP - General Internal Medicine 01/24/24 Kenyetta Dove MD [address] [place] [address] Referring Physician Endocrinology 08/01/24 Simón Ozuna MD [address] [place] [address] Referring Physician Urology 08/01/24 Amanda Montiel MD [address] [place] [address] Obstetrics and Gynecology 08/01/24 Krish Hodge MD [address] [place] [address] Referring Physician Ophthalmology 08/01/24 Beny Hoskins MD [address] [place] [address] [address] [place] [address] Referring Physician Gastroenterology 08/01/24 [facility] Mental Health 08/01/24 documented as of this encounter
--- OUTSIDE RECORDS SUMMARY | 2025-03-11 14:03 | XMS_ITS | Encounter Summary ---
Author Organization [facility] Address [address] [place] [address] Phone Care Team Providers Care Cisco Certified Internetwork Expert Name Role Phone Simón Davidson DO Primary Care Provider + Encounter Details Date Type Department Care Team (Late st Contact Info) Description 01/03/2018 Orders Only [facility] [address] [place] [address] Conversion, Onbase Social History Tobacco Use Types [...] on filedocumented in this encounter Care Teams Cisco Certified Internetwork Expert Relationship Specialty Start Date End Date Simón Davidson DO [address] [facility] [place] [address] PCP - General 10/21/17 documented as of this encounter
--- OUTSIDE RECORDS SUMMARY | 2025-03-11 14:03 | XMS_ITS | Encounter Summary ---
Author Organization [facility] Address [address] [place] [address] Phone Care Team Providers Care Environmental Projects Advisor Name Role Phone Simón Davidson DO Primary Care Provider + Encounter Details Date Type Department Care Team (Late st Contact Info) Description 11/09/1976 Scanned Document [facility] [address] [place] [phone] Scanning, Generic Provider Social History Tobacco Use [...] on filedocumented in this encounter Care Teams Environmental Projects Advisor Relationship Specialty Start Date End Date Simón Davidson DO [address] [place] [address] PCP - General 10/21/17 documented as of this encounter
--- OUTSIDE RECORDS SUMMARY | 2025-03-11 14:03 | XMS_ITS | Encounter Summary ---
Author Organization [facility] Address [address] [place] [address] Care Team Providers Care National Flatbed Truck Driver Name Role Phone Diony Sharma MD Primary Care Provider [phone] Kenyetta Dove MD Unavailable [phone] Simón Ozuna MD Unavailable [phone] Amanda Montiel MD Unavailable [phone] Krish Hodge MD Unavailable [phone] Beny Hoskins MD Unavailable [phone] Encounter Details Date Type Department Care Team (Late st Contact Info) Description 12/07/2024 External Result Encounter [facility] External Department Unsolicited Omid Quan, NISSAN SALES CONSULTANT [address] [place] [address] Social History Tobacco Use Types Packs/Day Years [...] Visit [facility] [place] [facility] [address] [place] [address] Kenyetta Dove MD [address] [place] [address] documented as of this encounter Procedures Procedure [...] Thacker M.D. 12/07/2024 11:37 AM Dictation Location: [place] [address] Transcribed By: [facility] 12/07/24 1137 Dictated By: Rizwana Thacker MD 12/07/24 1137 Signed By: <Electronically signed by MD Rizwana Thacker in OV> 12/07/24 1137 Narrative 12/07/2024 11:40 AM EDT [facility] Main [address] [address] XRay Report Signed Patient: Lupe Pickard MR#: [id number] : 1975 Acct:[id number] Age/Sex: 49 / F ADM Date: 12/07/24 Loc: XD Room: Type: [facility] Attending Dr: Omid Quan RN, MSN, [...] Procedure Note Radiology, Radiologist, - 12/07/2024 [facility] Main [place] [address] [place] [address] XRay Report Signed Patient: Lupe Pickard MMR#: [id number] : 1975Acct:[id number] Age/Sex: 49 / FADM Date: 12/07/24 Loc: XD Room:Type: [facility] Attending Dr: Omid Quan RN, MSN, ANP-C Copies to: OMID UQAN RN, MSN Ordering Provider: OMID QUAN RN, [...] Thacker M.D. 12/07/2024 11:37 AM Dictation Location: [place] [address] Transcribed By: BOB 12/07/24 1137 Dictated By: Rizwana Thacker MD 12/07/24 1137 Signed By: <Electronically signed by MD Rizwana Thacker in OV> 12/07/24 1137 us Omid Kyler Quan NISSAN SALES CONSULTANT IMG XR PROCEDURES Final Resu lt documented in this encounter Visit Diagnoses Not on filedocumented in this encounter Care Teams National Flatbed Truck Driver Relationship Specialty Start Date End Date Diony Sharma MD [address] [place] [address] PCP - General Internal Medicine 01/24/24 Kenyetta Dove MD [address] [place] [address] Referring Physician Endocrinology 08/01/24 Simón Ozuna MD [address] [place] [address] Referring Physician Urology 08/01/24 Amanda Montiel MD [address] [place] [address] Obstetrics and Gynecology 08/01/24 Krish Hodge MD [address] [place] [address] Referring Physician Ophthalmology 08/01/24 Beny Hoskins MD [address] [place] [address] [address] [place] [address] Referring Physician Gastroenterology 08/01/24 [facility] Mental Health 08/01/24 documented as of this encounter
--- OUTSIDE RECORDS SUMMARY | 2025-03-11 14:04 | XMS_ITS | Encounter Summary ---
Author Organization [facility] Address [address] [place] [address] Care Team Providers Care Glassworker Name Role Phone Diony Sharma MD Primary Care Provider [phone] Kenyetta Dove MD Unavailable [phone] Simón Ozuna MD Unavailable [phone] Amanda Montiel MD Unavailable [phone] Krish Hodge MD Unavailable [phone] Beny Hoskins MD Unavailable [phone] Encounter Details Date Type Department Care Team (Late st Contact Info) Description 10/16/2024 Orders Only [facility] [facility] [address] [place] [address] Kenyetta Dove MD [address] [place] [address] Abnormal cortisol level (Primary Dx) Social History [...] [facility] [address] [place] [address] Kenyetta Dove MD [address] [place] [address] documented as of this encounter Procedures Procedure [...] Primary documented in this encounter Care Teams Glassworker Relationship Specialty Start Date End Date Diony Sharma MD [address] [place] [address] PCP - General Internal Medicine 01/24/24 Kenyetta Dove MD [address] [place] [address] Referring Physician Endocrinology 08/01/24 Simón Ozuna MD [address] [place] [address] Referring Physician Urology 08/01/24 Amanda Montiel MD [address] [place] [address] Obstetrics and Gynecology 08/01/24 Krish Hodge MD [address] [place] [address] Referring Physician Ophthalmology 08/01/24 Beny Hoskins MD [address] [place] [address] [address] [place] [address] Referring Physician Gastroenterology 08/01/24 [facility] Mental Health 08/01/24 documented as of this encounter
--- OUTSIDE RECORDS SUMMARY | 2025-03-11 14:04 | XMS_ITS | Encounter Summary ---
Author Organization [facility] Address [address] [place] [address] Care Team Providers Care Particle Board Supervisor Name Role Phone Diony Sharma MD Primary Care Provider [phone] Kenyetta Dove MD Unavailable [phone] Simón Ozuna MD Unavailable [phone] Amanda Montiel MD Unavailable [phone] Krish Hodge MD Unavailable [phone] Beny Hoskins MD Unavailable [phone] Encounter Details Date Type Department Care Team (Late st Contact Info) Description 03/04/2025 Refill [facility] [address] [place] [address] Ashley Araya, ELEN [address] [place] [address] Bacterial vaginitis Social History Tobacco Use Types Packs/Day Years [...] encounter Miscellaneous Notes * Telephone Encounter - Ashley Araya LPN - 03/05/2025 8:23 AM EDT [facility] Rx sent * Telephone Encounter - Ashley Araya LPN - 03/04/2025 4:26 PM EDT Spoke with pt advised her of [facility] recommendation. She voiced understanding. Info on Florajen sent via my chart message. Per pt request. * Telephone Encounter - Amanda Montiel MD - 03/04/2025 3:50 PM EDT Flagyl for Cleocin for pt [facility] Monthly boric acid for 6m * Telephone Encounter - Ashley Araya LPN - 03/04/2025 3:11 PM EDT Pt calls with c/o BV. She states she was treated for this, previously. Pt reports she is fine as long as she is taking the medication she is symptom free, however as soon as she completes the medication. Symptoms return, pt currently C/O foul odor, slight clear discharge. Pt asking if she needs another appt or if [facility] can send another Rx . documented in this encounter Plan of Treatment Upcoming Encounters Date Type Department Care Team (Late st Contact Info) Description 02/11/2026 11:00 AM EDT Office Visit [facility] [place] [facility] [address] [place] [address] Kenyetta Dove MD [address] [place] [address] documented as of this encounter Visit Diagnoses Diagnosis Bacterial vaginitis Unspecified vaginitis and vulvovaginitis documented in this encounter Care Teams Particle Board Supervisor Relationship Specialty Start Date End Date Diony Sharma MD [address] [place] [address] PCP - General Internal Medicine 01/24/24 Kenyetta Dove MD [address] [place] [address] Referring Physician Endocrinology 08/01/24 Simón Ozuna MD [address] [place] [address] Referring Physician Urology 08/01/24 Amanda Montiel MD [address] [place] [address] Obstetrics and Gynecology 08/01/24 Krish Hodge MD [address] [place] [address] Referring Physician Ophthalmology 08/01/24 Beny Hoskins MD [address] [place] [address] [address] [place] [address] Referring Physician Gastroenterology 08/01/24 [facility] Mental Health 08/01/24 documented as of this encounter
--- OUTSIDE RECORDS SUMMARY | 2025-03-11 14:04 | XMS_ITS | Encounter Summary ---
Author Organization [facility] Address [address] [place] [address] Care Team Providers Care Foundry Process Engineer Name Role Phone Diony Sharma MD Primary Care Provider [phone] Kenyetta Dove MD Unavailable [phone] Simón Ozuna MD Unavailable [phone] Amadna Montiel MD Unavailable [phone] Krish Hodge MD Unavailable [phone] Beny Hoskins MD Unavailable [phone] Encounter Details Date Type Department Care Team (Late Contact Info) Description 02/12/2025 External Result Encounter [facility] External Department Unsolicited Provider, Generic External Data Social History Tobacco Use Types Packs/Day Years [...] Encounters Date Type Department Care Team (Late Contact Info) Description 02/11/2026 11:00 AM EDT Office Visit [facility] [place] [facility] [address] [place] [address] Kenyetta Dove MD [address] [place] [address] documented as of this encounter Procedures Procedure Name Priority Date/Time Associated Diagnosis Comments BI MAMMOGRAM SCREENING TOMOSYNTHESIS BILATERAL 02/12/2025 9:28 AM EDT documented in this encounter Results * Bilateral screening mammogram with tomosynthesis (02/12/2025 [...] Perez M.D. 02/12/2025 9:55 AM Dictation Location: [facility] Dictated By: Larry Perez MD 02/12/25927 Signed By: <Electronically signed by Larry Perez MD in OV> 02/12/25 09 Narrative 02/12/2025 9:57 AM EDT [facility] [address] [place] [address] [address] [place] [address] Mammography Report Signed Patient: Lupe Pickard MR#: [id number] : 1975 Acct:[id number] Age/Sex: 49 / F Adm Date: 02/11/25 Loc: [place] Room: Type: [facility] CLI Attending Dr: Referral Self Ordering Provider: SELF,REFERRAL Date of Service: 02/11/25 Procedure(s): MM screening mammo BI w/CAD Accession Number(s): ([id number]) MM/MM screening mammo BI w/CAD: SCREENING Copies [...] w/CAD Procedure Note Radiology, Radiologist, - 02/12/2025 [place] [address] Mammography Report Signed Patient: Lupe Pickard MMR#: [id number] : 1975Acct:[id number] Age/Sex: 49 / FAdm Date: 02/11/25 Loc: [place] Room:Type: [facility] Attending Dr: Referral Self Ordering Provider: SELF,REFERRAL Date of Service: 02/11/25 Procedure(s): MM screening mammo BI w/CAD Accession Number(s): ([id number]) MM/MM screening mammo BI w/CAD:SCREENING Copies to: [...] Perez M.D. 02/12/2025 9:55 AM Dictation Location: [facility] Dictated By: Larry Perez MD 02/12/2528 Signed By: <Electronically signed by Larry Perez MD in OV> 02/12/25 0955 us Generic External Data Provider IMG BI PROCEDURES Final Result documented in this encounter Visit Diagnoses Not on filedocumented in this encounter Care Teams Foundry Process Engineer Relationship Specialty Start Date End Date Diony Sharma MD [address] [facility] [address] [place] [address] PCP - General Internal Medicine 01/24/24 Kenyetta Dove MD [address] [facility] [place] [address] Referring Physician Endocrinology 08/01/24 Simón Ozuna MD [address] [place] [address] Referring Physician Urology 08/01/24 Amanda Montiel MD [address] [facility] [address] [place] [address] Obstetrics and Gynecology 08/01/24 Krish Hodge MD [address] [place] [address] Referring Physician Ophthalmology 08/01/24 Beny Hoskins MD [address] [place] [address] [address] [place] [address] Referring Physician Gastroenterology 08/01/24 [facility] Mental Health 08/01/24 documented as of this encounter
--- OUTSIDE RECORDS SUMMARY | 2025-03-11 14:04 | XMS_ITS | Encounter Summary ---
Author Organization [facility] Address [address] [place] [address] Care Team Providers Care Evaluator Name Role Phone Diony Sharma MD Primary Care Provider [phone] Kenyetta Dove MD Unavailable [phone] Simón Ozuna MD Unavailable [phone] Amanda Montiel MD Unavailable [phone] Krish Hodge MD Unavailable [phone] Beny Hoskins MD Unavailable [phone] Encounter Details Date Type Department Care Team (Late st Contact Info) Description 01/31/2025 Orders Only [facility] [address] [facility] [address] [place] [address] Diony Benz MD [address] [place] [address] Social History Tobacco Use Types [...] [facility] [address] [place] [address] Kenyetta Dove MD [address] [place] [address] documented as of this encounter Procedures Procedure [...] on filedocumented in this encounter Care Teams Evaluator Relationship Specialty Start Date End Date Diony Sharma MD [address] [place] [address] PCP - General Internal Medicine 01/24/24 Kenyetta Dove MD [address] [place] [address] Referring Physician Endocrinology 08/01/24 Simón Ozuna MD [address] [place] [address] Referring Physician Urology 08/01/24 Amanda Montiel MD [address] [place] [address] Obstetrics and Gynecology 08/01/24 Krish Hodge MD [address] [place] [address] Referring Physician Ophthalmology 08/01/24 Beny Hoskins MD [address] [place] [address] Referring Physician Gastroenterology 08/01/24 [facility] 08/01/24 documented as of this encounter
--- OUTSIDE RECORDS SUMMARY | 2025-03-11 14:04 | XMS_ITS | Clinical Summary ---
Author Organization [facility] Address [address] [place] [address] Phone Care Team Providers Care Traffic Sergeant Name Role Phone StuartSimón Nils Primary Care [...] PART A AND B MEDICAID Care Teams Traffic Sergeant Relationship Specialty Start Date End Date Simón Davidson DO [address] [place] [id number] PCP - General 10/21/17
--- OUTSIDE RECORDS SUMMARY | 2025-03-11 14:04 | XMS_ITS | Encounter Summary ---
Author Organization [facility] Address [address] [place] [address] Phone Care Team Providers Care Hydraulic Plumber Name Role Phone Simón Davidson DO Primary Care Provider + Encounter Details Date Type Department Care Team (Late st Contact Info) Description 12/20/2022 Orders Only [facility] [address] [place] [address] Conversion, Onbase Social History Tobacco Use Types [...] on filedocumented in this encounter Care Teams Hydraulic Plumber Relationship Specialty Start Date End Date Simón Davidson DO [address] [facility] [place] [address] PCP - General 10/21/17 documented as of this encounter
--- OUTSIDE RECORDS SUMMARY | 2025-03-11 14:04 | XMS_ITS | Encounter Summary ---
Author Organization [facility] Address [address] [place] [address] Phone Care Team Providers Care Demonstrator Sales Name Role Phone Simón Davidson DO Primary Care Provider + Encounter Details Date Type Department Care Team (Late st Contact Info) Description 03/17/2023 Scanned Document [facility] [address] [place] [id number] Scanning, Generic Provider Social History Tobacco Use [...] on filedocumented in this encounter Care Teams Demonstrator Sales Relationship Specialty Start Date End Date Simón Davidson DO [address] [facility] [place] [address] PCP - General 10/21/17 documented as of this encounter
--- NOTE | 2025-03-11 15:08 | PM.CN ---
Consult Note: HPI Data of Consult Patient: known to practice within the last 3 years Consult date: 03/11/25 Requesting Physician: Willian Jensen MD Primary Care Provider: Non-Staff Physician, Consult Narrative Reason for consult: midback pain Narrative: 49yof who presents for assessment. endorses good relief of her low back pain with her spinal cord stimulator. now endorses worsening midback pain. thoracic mri reviewed, significant for multilevel spondylosis, worst from t7-10. previously underwent thoracic rfa at t8-9, 9-10 two years ago, which provided significant benefit of >50% for >2 years. continues to engage in a series of provider directed home exericses >6 weeks, without significant benefit. uses otc pain meds as needed. denies adverse med side effects. cc:: CC: Willian Jensen MD Review of Systems ROS Status of ROS 10 or more systems reviewed and unremarkable except as noted in history and below [facility] Medical History Lumbago ?M54.50 - Low back pain, unspecified (ICD-10) Thoracic spondylosis ?M47.814 - Spondylosis without myelopathy or radiculopathy, thoracic region (ICD-10) Muscle spasm ?M62.838 - Other muscle spasm (ICD-10) Thoracic neuritis ?M54.14 - Radiculopathy, thoracic region (ICD-10) Chronic pain syndrome ?G89.4 - Chronic pain syndrome (ICD-10) Lumbar spondylosis ?M47.816 - Spondylosis without myelopathy or radiculopathy, lumbar region (ICD-10) Greater trochanteric bursitis of right hip ?M70.61 - Trochanteric bursitis, right hip (ICD-10) Thoracic stenosis ?M48.04 - Spinal stenosis, thoracic region (ICD-10) Chronic bilateral low back pain ?M54.50 - Low back pain, unspecified (ICD-10) ?G89.29 - Other chronic pain (ICD-10) Sacroiliitis ?M46.1 - Sacroiliitis, not elsewhere classified (ICD-10) Sacroiliac joint dysfunction ?M53.3 - Sacrococcygeal disorders, not elsewhere classified (ICD-10) Lumbar stenosis with neurogenic claudication ?M48.062 - Spinal stenosis, lumbar region with neurogenic claudication (ICD-10) Neck pain ?M54.2 - Cervicalgia (ICD-10) Shoulder pain ?M25.519 - Pain in unspecified shoulder (ICD-10) Arthritis ?M19.90 - Unspecified osteoarthritis, unspecified site (ICD-10) Back pain ?M54.9 - Dorsalgia, unspecified (ICD-10) Dyspnea on exertion ?R06.09 - Other forms of dyspnea (ICD-10) Hypothyroidism ?E03.9 - Hypothyroidism, unspecified (ICD-10) Thyroid disease ?E07.9 - Disorder of thyroid, unspecified (ICD-10) Pseudotumor cerebri ?G93.2 - Benign intracranial hypertension (ICD-10) PTSD (post-traumatic stress disorder) ?F43.10 - Post-traumatic stress disorder, unspecified (ICD-10) Chronic fatigue syndrome ?G93.32 - Myalgic encephalomyelitis/chronic fatigue syndrome (ICD-10) Depression ?F32.A - Depression, unspecified (ICD-10) Anxiety ?F41.9 - Anxiety disorder, unspecified (ICD-10) HTN (hypertension) ?I10 - Essential (primary) hypertension (ICD-10) Palpitations ?R00.2 - Palpitations (ICD-10) Osteoarthritis ?M19.90 - Unspecified osteoarthritis, unspecified site (ICD-10) Fibromyalgia ?M79.7 - Fibromyalgia (ICD-10) IBS (irritable bowel syndrome) ?K58.9 - Irritable bowel syndrome without diarrhea (ICD-10) Constipation ?K59.00 - Constipation, unspecified (ICD-10) Surgical History S/P insertion of spinal cord stimulator (07/23/24) ?Z96.89 - Presence of other specified functional implants (ICD-10) S/P epidural steroid injection ?Z92.241 - Personal history of systemic steroid therapy (ICD-10) History of radiofrequency ablation (RFA) of nerve of lumbar spine ?Z98.890 - Other specified postprocedural states (ICD-10) History of colonoscopy ?Z98.890 - Other specified postprocedural states (ICD-10) History of breast biopsy ?Z98.890 - Other specified postprocedural states (ICD-10) H/O section ?Z98.891 - History of uterine scar from previous surgery (ICD-10) History of hysterectomy ?Z90.710 - Acquired absence of both cervix and uterus (ICD-10) History of thyroidectomy ?E89.0 - Postprocedural hypothyroidism (ICD-10) Family History Other Family history of cancer Family history of diabetes mellitus Family history of heart disease Family history of hypertension Family history of myocardial infarction Family history of stroke Kidney disease Social History Within the past year, how often did you have a drink containing alcohol: never Score interpretation: A score less than 3 is consistent with normal alcohol consumption. Smoking status: Former smoker Do you use any of these nicotine containing products: vaping products Non-prescribed substance use: denies use Highest level of school completed/degree received: high school graduate Meds Home Medications and Allergies Home Medications ?Medication ?Instructions ?Recorded ?Confirmed ?Type cholecalciferol (vitamin D3) 50 50 mcg PO DAILY 12/30/22 12/17/24 History mcg (2,000 unit) capsule (Vitamin D3) liothyronine 5 mcg tablet 5 mcg PO DAILY 12/30/22 12/17/24 History lubiprostone 24 mcg capsule 24 mcg PO DAILY PRN IBS -C 12/30/22 12/17/24 History magnesium oxide 400 mg (241.3 mg 400 mg PO DAILY 12/30/22 12/17/24 History magnesium) tablet melatonin 10 mg tablet 10 mg PO DAILY 12/30/22 12/17/24 History multivitamin (Daily Multi-Vitamin 1 tab PO DAILY 12/30/22 12/17/24 History tablet) Lactobacillus acidophilus 10 100 mmu cells PO DAILY 08/03/23 12/17/24 History billion cell capsule (Probiotic) escitalopram oxalate 20 mg tablet 20 mg PO DAILY 08/03/23 12/17/24 History (Lexapro) ferrous sulfate 325 mg (65 mg 325 mg PO DAILY 08/03/23 12/17/24 History iron) tablet (Feosol) propranolol 20 mg tablet 20 mg PO BID 08/03/23 12/17/24 History calcium 500 mg (as 1 tab PO DAILY 07/13/24 12/17/24 History carbonate)-vitamin D3 5 mcg (200 unit) tablet (Oyster Shell Calcium-Vitamin D3) collagen capsule PO 07/13/24 History vit B complex-folic acid 400 1 cap PO DAILY 07/13/24 12/17/24 History mcg-choline 20 mg-inositol 50 mg capsule (Super B-50 Complex) cephalexin 500 mg capsule 500 mg PO Q8H celulitis 11/27/24 11/27/24 History levothyroxine 125 mcg tablet 125 mcg PO DAILY 11/27/24 12/17/24 History potassium chloride 10 mEq 10 meq PO BID 11/27/24 12/17/24 History tablet,extended release(part/cryst) cephalexin 500 mg capsule 500 mg PO TID 7 days #21 caps 12/17/24 Rx hydrocodone 5 mg-acetaminophen 325 1 tab PO QID PRN pain #12 tabs 12/17/24 Rx mg tablet losartan 100 tab 12/17/24 History mg-hydrochlorothiazide 12.5 mg tablet Allergies Allergy/AdvReac Type Severity Reaction Status Date / Time No Known Drug Allergies Allergy Verified 11/27/24 14:30 Exam Narrative Exam Narrative: Psych-alert and oriented x 3.? Attentive and appropriate, constitutionally normal, displays normal mood and affect per situation.? There are no obvious deficits in memory, reasoning, or intellect.? Skin-no obvious rashes, bruising, or erythema noted to the patient's area of pain. Extremities-upper extremities are warm with minimal edema and palpable pulses. Thoracic - tenderness to palpation noted in the thoracic spine and paraspinal musculature.? Pain is elicited with extension, and lateral rotation of the cervical spine.? Range of motion is slightly diminished due to pain. Facet loading maneuvers are positive bilaterally.? Coordination remains intact.? Gait remains non-antalgic. Assessment and Plan Assessment and Plan (1) Thoracic spondylosis: Plan 49yof who presents for assessment. she has failed physical and medical modalities, as noted. imaging reviewed, as noted. given symptoms and imaging findings, prudent to repeat bilateral t8-9, 9-10 rfa under fluoroscopic guidance. she will need ivcs due to her severe anxiety, as she has tried doing this procedure before locally, and she was unable to tolerate. meds reviewed, no changes. follow up after procedure.
== END 2025-03-11 13:58 | disposition home or self-care (01) ==
PROVIDERS: Visit Provider Anesthesiology
DX: M47.814 Spondylosis without myelopathy or radiculopathy, thoracic region (principal)
CPT/HCPCS: G0463

== ENCOUNTER 2025-04-01 06:40 | Day surgery (SDC) | payer MEDICARE, SELFPAY ==
--- OUTSIDE RECORDS SUMMARY | 2018-01-25 08:00 | XMS_ITS | Continuity of Care Document ---
Author Organization [facility] Address [address] [place] [address] Phone Care Team Providers Care Mirror Department Supervisor Name Role Phone Antoine Leonard DMD Unavailab le Unavailable Allergies, Adverse Reactions, Alerts Substance Reaction Status Criticality No Known Allergies Active No Inform ation Medications Medication Instructions Dosage Effective Dates (start - stop) Status Comments Tapazole 5 mg tablet take 1 tablet by or al route every day - Active Restoril 15 mg capsule take 1 capsule by oral route every day at bedtime as needed 15 MG - Active melatonin 5 mg capsule - Active Calcium 500 500 mg calcium (1,250 mg) tablet - Active Multiple Vitamin-Minerals tablet - Active Tylenol Extra Strength 500 mg tablet take 1 Tablet by oral route every 6 hours as needed 500 MG - Active ibuprofen 800 mg tablet take 1 tablet by oral route every 8 hours with food 800 MG - Active Procedures Procedure Date Bitewings Four Films Intraoral-periapical 1st Film 8 Prophylaxis Adult Periodic Oral Eval Estab Patient 2017 Oral Hygiene Instruction Periodic Oral Eval Estab Patient 2016 Prophylaxis Adult Oral Hygiene Instruction Extract; Erupted Th/exposted Rt 017 Intraoral-periapical 1st Film 7 Limited Oral Eval Prophylaxis Adult Intraoral-complete Series (bw) 16 Comp Oral Eval New/estab Patient 2015 OFFICE/OUTPATIENT VISIT, EST OFFICE/OUTPATIENT VISIT, EST SMEAR, WET MOUNT, SALINE/INK PREV VISIT, EST, AGE 12-17 EST FP MEDICAID OFFICE/OUTPATIENT VISIT, EST ENDOCERV CURETTAGE W/SCOPE EST FP MEDICAID EST FP MEDICAID SMEAR, WET MOUNT, SALINE/INK OFFICE/OUTPATIENT VISIT, EST SMEAR, WET MOUNT, SALINE/INK ROUTINE VENIPUNCTURE Condoms OFFICE/OUTPATIENT VISIT, EST SMEAR, WET MOUNT, SALINE/INK URINE TEST Condoms OFFICE/OUTPATIENT VISIT, EST ODH ROCEPHINE 250 MG (PER DOSE) 009 OFFICE/OUTPATIENT VISIT, EST HIV-1 URINALYSIS, NONAUTO W/SCOPE SMEAR, WET MOUNT, SALINE/INK SPECIMEN HANDLING ROUTINE VENIPUNCTURE Condoms RPR, RFX On RPR PREV VISIT, EST, AGE 18-39 URINALYSIS, NONAUTO W/SCOPE SMEAR, WET MOUNT, SALINE/INK CHLAMYDIA/GC (W/Refflex) METRONIDAZOL 500 MG (14 TABLETS) 2008 THIN PREP PAP W/REFLEX TO ASCUS 009 Condoms OFFICE/OUTPATIENT VISIT, EST HIV-1 METRONIDAZOL 500 MG (14 TABLETS) 2007 SPECIMEN HANDLING Advance Directives Directive Yes / No Effective Date File Name No Information Encounters Encounter Description Practice Location Reason(s) For Visit Diagnoses Date Provider Providers Copied on Encounter [facility], [address] [place] [address], [place], [place], [id number] , [place] tel:[phone] Dental Clinic prophy (chief complaint) Encounter for screening for dental disorders 8 [facility]. [address] [facility], [place], [address], [place]. tel:[phone] [facility], [address] [facility], [place], [place], [address] , [place] tel:[phone] Dental Clinic prophy (chief complaint) Encounter for screening for dental disorders 7 Preet Merchantbo. [address] [facility], [place], [address], [place]. tel:[phone] [facility], [address] [facility], [facility] [place], [address] , [place] tel:[phone] Dental Clinic extraction (chief complaint) Encounter for screening for dental disorders 7 Declan Andriy Snell. [address] [facility], [place], [address], [place]. tel:[phone] [facility], [address] [place], [place], [address] , [place] tel:[phone] Dental Clinic dental limited (chief complaint) Encounter for screening for dental disorders 7 Preet Moreno. [address] [facility], [place], [address], [place]. tel:[phone] [facility], [address] [facility], [facility] [place], [address] , [place] tel:[phone] Dental Clinic Encounter for screening for dental disorders 6 [facility]. [address] [facility] [place] [address], [place]. tel:[phone] [facility], [address] [facility] [place], [address] , [place] tel:[phone] Dental Clinic prophy (chief complaint) Encounter for screening for dental disorders 6 [facility] August. [address] [facility], [place], [place], [address], [place]. tel:[phone] [facility], [address] [place], [place], [address] , [place] tel:[phone] Dental Clinic Encounter for screening for dental disorders 6 Beau DMD Nanette. [address] [place], [place], [address], [place]. tel:[phone] 23 OFFICE/OUTPA TIENT VISIT, EST [facility], [address] [place], [place], [address] , [place] tel: [phone] [facility] repeat pap (chief complaint) Papanicolaou smear of cervix with atypical squamous cells of undetermined significance (ASC-US) 4 [facility] Evelyn. [address] [place], [place], [address], [place]. tel:[phone] PREV VISIT, EST, AGE 12-17 [facility], [address] [place], [place], [address] , [place] tel: [phone] [facility] annual visit (chief complaint) Gynecological ExaminationMam venecia, Screening 3 Jer Cleveland. [address] [place], [place], [address], [place]. tel:[phone] 23 OFFICE/OUTPA TIENT VISIT, EST [facility], [address] [place], [place], [address] , [place] tel: [phone] [facility] No Information 2 Lamp Megha. [address] [place], [place], [address], [place]. tel:[phone] [facility], [address] [place], [place], [address] , [place] tel: [phone] [facility] No Information 2 Visci DO Gadiel. [address] [place], [place], [address], [place]. tel:[phone] [facility], [address] [place], [place], [address] , [place] tel: [phone] [facility] No Information 2 Lamp Megha. [address] [place], [place], [address], [place]. tel:[phone] [facility], [address] [place], [place], [address] , [place] tel: [phone] [facility] No Information 2- 0 Jer Cleveland. [address] [place], [place], [address], [place]. tel:[phone] OFFICE/OUTPA TIENT VISIT, [facility], [address] [place], [place], [address] , [place] tel: [phone] [facility] No Information 9 Milton ROSARIOLoren Arriola. [address] [place], [place], [address]. tel:[phone] OFFICE/OUTPA TIENT VISIT, [facility], [address] [place], [place], [address] , [place] tel: [phone] [facility] No Information 9 No Information OFFICE/OUTPA TIENT VISIT, [facility], [address] [place], [place], [address] , [place] tel: [phone] [facility] No Information 9 Tere Sloan. [address] [place], [place], [address], [place]. tel:[phone] OFFICE/OUTPA TIENT VISIT, [facility], [address] [place], [place], [address] , [place] tel: [phone] [facility] No Information 9 Tere Sloan. [address] [place], [place], [address], [place]. tel:[phone] PREV VISIT, EST, AGE 18-39 [facility], [address] [place], [place], [address] , [place] tel: [phone] [facility] No Information 0 [phone] 9 Donavon Avina. [address] [place], [place], [address]. tel:[phone] OFFICE/OUTPA TIENT VISIT, EST [facility], [address] [place], [place], [address] , [place] tel:[phone] [facility] No Information 8 Tere Sloan. [address] [place], [place], [address], [place]. tel:[phone] Family History Family Member Type Diagnosis Age At Onset Brother Problem (finding) Alive and well Mother Problem (finding) Alive and well Problem (finding) Family history of CA Father Problem (finding) Alive and well Problem (finding) Family history of malignant neoplasm of breast in first degree relative Mother Problem (finding) depression Father Problem (finding) alcoholism Mother Problem (finding) fibromyalgia Sister Problem (finding) fibromyalgia Sister Problem (finding) Alive and well Brother Problem (finding) alcoholism Payers Payer name Insurance type Covered libertarian ID Authoriza tion(s) No Information Social History Type Description Quantity Date Captured Comments Alcohol Use Details beer 1 glass occasionally Caffeine Use Details soda Occasional per day Tobacco Use Status Light cigarette smok er (1-9 cigs/day) Smoking Status Light tobacco smoker Smoking Tobacco Use Details Cigarette: Age Started: 17 Cigarette: 5 Packs per day [id number] SexFemaleSexual OrientationLesbian, ngo or homosexualGender [id number] Vital Signs Date / Time: Height Weight BMI Pulse Rate Blood Pressure Temperature Respiratory Rate Body Surface Area Head Circumference Head Circ. Percentile Wt./Win. Percentile BMI percentile Pulse Ox Inhaled Ox 1:09 PM 71 /min 117/78 mm[Hg] Chief Complaint And Reason For Visit From encounter dated '01/25/2018 13:00'. prophy (chief complaint) Reason For Referral Reason For Referral No Information Plan Of Treatment Date Type Action Status Goal Tdap. Due on due Goal Depression screening. Due on due Goal Influenza vaccine. Due on due Goal RLP. Due on due Goal RLP. Due on due Goal Tdap. Due on due Goal H&P. Due on due Goal Depression screening. Due on due Goal Influenza vaccine. Due on due Goal Td vaccine. Due on 17 due Goal Depression screening. Due on due Goal Tdap. Due on due Goal H&P. Due on due Goal Influenza vaccine. Due on due Goal Td vaccine. Due on 17 due Goal Influenza vaccine. Due on due Goal H&P. Due on due Goal Tdap. Due on due Goal Depression screening. Due on due Goal Tdap. Due on due Goal Depression screening. Due on due Goal H&P. Due on due Goal Td vaccine. Due on 16 due Goal Depression screening. Due on due Goal H&P. Due on due Goal Tdap. Due on due Goal Td vaccine. Due on 16 due Goal Tdap. Due on due Goal Depression screening. Due on due Goal Td vaccine. Due on 16 due Goal H&P. Due on due Goal Mammogram. Due on 3 due Goal H&P. Due on due Goal PAP. Due on due History Of Present Illness Encounter Date Complaint History Of Prese nt Illness prophy prophy prophy extraction extractions dental limited dental limited, tooth #14 causing pain, pain level 4 prophy Functional Status Date Functional Assessmen t No Information Instructions Date Instruction Additional Infor mation No Information Assessments Type Assessment Date assessment Encounter for screening for dent al disorders Patient Care Teams Name Effective Dates (start - stop) Status Members No Information
--- OUTSIDE RECORDS SUMMARY | 2024-05-01 08:45 | XMS_ITS ---
Author Organization [facility] Servic es Address [address] [place] [address] Care Team Providers Care Chainstitch Felled Seam Operator Name Role Phone Radha Mcintosh Primary Care Provider [phone] Temi Kaufmanrina Unavailable [phone] REASON FOR VISIT 3 month f/u Encounters Encounter Location Date Provider Diagnosis [facility] [address] [place] [address] 05/01/2024 Radha Mcintosh Plan Of Treatment Next Appt Details Provider Name:Gissell Kaufman , 07/04/2025 02:20:00 PM, [address], [place], [address], Progress Notes * HERNAN TORIBIOB:1975 ([age] yo F)Acc No.[id number]:05/01/2024 Behavioral Health Patient: Brent LIZABETHEMILY OJEDA Provider:?Radha McintoshDOB:1975???Age:49 Y ???Sex:FemaleDate:05/01/2024hone:[phone]:[address], [address] [place], [id number] Subjective: * Chief Complaints: * 3 month f/u * Electronic signature of MARIBEL Hobbs on 04/01/2025 at 06:44 AM ESTSign off status: Pending * Appointment Provider: Kaiden Mcintosh Date: 1 07/02/2023 Generated for Printing/Faxing/eTransmitting on:?04/01/2025 06:44 AM EST
--- OUTSIDE RECORDS SUMMARY | 2024-07-10 09:45 | XMS_ITS ---
Author Organization [facility] Servic es Address [address] [place] [address] Care Team Providers Care Building Construction Inspector Name Role Phone Radha Mcintosh Primary Care Provider [phone] MandeepTemiGissell Unavailable [phone] Dr. Bob Ureña Unavailable [phone] REASON FOR VISIT FILLING Encounters Encounter Location Date Provider Diagnosis [facility] [address] [place] [address] 07/10/2024 Bob Ureña Plan Of Treatment Next Appt Details Provider Name:Gissell Kaufman , 07/04/2025 02:20:00 PM, [address], [place], [address], Progress Notes * STEFANIEGalen HERNANB:1975 ([age] yo F)Acc No.[id number]:07/10/2024 Patient:?EMILY TORIBIO :?Bob Ureña DDSDOB:1975???Age:49 Y???Sex: FemaleDate:07/10/2024Phone:[phone]:[address], [address] [place] [id number]:Radha Mcintosh Subjective: * Chief Complaints: * F ILLING Billing Information: * Procedure Codes: * Electronic signature of Dr. Bob Ureña , [facility], [id number] on 04/01/2025 at 06:44 AM ESTSign off status: Pending * Provider: Hugo Ureña DDS Date: 0 07/10/2024 Generated for Printing/Faxing/eTransmitting on:?04/01/2025 06:44 AM EST
--- OUTSIDE RECORDS SUMMARY | 2024-07-17 09:00 | XMS_ITS ---
Author Organization [facility] Servic es Address [address] [place] [address] Care Team Providers Care Nurse Aide Evaluator Name Role Phone Radha Mcintosh Primary Care Provider MandeepTemiGissell Unavailable [phone] Dr. Bob Ureña Unavailable [phone] REASON FOR VISIT FILLING Encounters Encounter Location Date Provider Diagnosis [facility] [address] [place] [address] 07/17/2024 Bob Ureña Plan Of Treatment Next Appt Details Provider Name:Gissell Kaufman , 07/04/2025 02:20:00 PM, [address], [place], [address], Progress Notes * STEFANIEGalen HERNANB:1975 ([age] yo F)Acc No.[id number]:07/17/2024 Patient:?EMILY TORIBIO :?Bob Ureña DDSDOB:1975???Age:49 Y???Sex: FemaleDate:07/17/2024Phone:[phone]:[address] [id number]:Radha Mcintosh Subjective: * Chief Complaints: * F ILLING Billing Information: * Procedure Codes: * Electronic signature of Dr. Bob Ureña , [facility], [id number] on 04/01/2025 at 06:44 AM ESTSign off status: Pending * Provider: Hugo Ureña DDS Date: 0 07/17/2024 Generated for Printing/Faxing/eTransmitting on:?04/01/2025 06:44 AM EST
--- OUTSIDE RECORDS SUMMARY | 2024-09-28 05:30 | XMS_ITS ---
Author Organization [facility] Address [address] [place] [address] Care Team Providers Care Cook Morning Name Role Phone Radha Mcintosh Primary Care Provider MandeepTemiGissell Unavailable [phone] Dr. Bob Ureña Unavailable [phone] REASON FOR VISIT fill Encounters Encounter Location Date Provider Diagnosis [facility] [address] [place] [address] 09/28/2024 Bob Ureña Plan Of Treatment Next Appt Details Provider Name:Gissell Kaufman , 07/04/2025 02:20:00 PM, [address], [place], [address], Progress Notes * STEFANIEGalen HERNANB:1975 ([age] yo F)Acc No.[id number]:09/28/2024 Patient:?EMILY TORIBIO :?Bob Ureña DDSDOB:1975???Age:49 Y???Sex: FemaleDate:09/28/2024Phone:[phone]:[address], [address] [id number]:Radha Mcintosh Subjective: * Chief Complaints: * F ill Billing Information: * Procedure Codes: * Electronic signature of Dr. Bbo Ureña , [facility], [id number] on 04/01/2025 at 06:44 AM ESTSign off status: Pending * Provider: Hugo Ureña DDS Date: 0 09/28/2024 Generated for Printing/Faxing/eTransmitting on:?04/01/2025 06:44 AM EST
--- OUTSIDE RECORDS SUMMARY | 2024-10-08 09:45 | XMS_ITS ---
Author Organization [facility] Address [address] [place] [address] Care Team Providers Care Head Of Housekeeping Name Role Phone Radha Mcintosh Primary Care Provider [phone] Gissell Kaufman Unavailable [phone] REASON FOR VISIT 3 month f/u Encounters Encounter Location Date Provider Diagnosis [facility] [address] [place] [address] 10/08/2024 Radha Mcintosh Plan Of Treatment Next Appt Details Provider Name:Gissell Kaufman , 07/04/2025 02:20:00 PM, [address], [place], [address], Progress Notes * HERNAN TORIBIOB:1975 ([age] yo F)Acc No.[id number]:10/08/2024 Behavioral Health Patient: Brent LIZABETHEMILY OJEDA Provider:?Radha McintoshDOB:1975???Age:49 Y ???Sex:FemaleDate:10/08/2024Phone:[phone]:[address] [place], [id number] Subjective: * Chief Complaints: * 3 month f/u * Electronic signature of MARIBEL Hobbs on 04/01/2025 at 06:45 AM ESTSign off status: Pending * Appointment Provider: Kaiden Mcintosh Date: 0 10/08/2024 Generated for Printing/Faxing/eTransmitting on:?04/01/2025 06:45 AM EST
--- OUTSIDE RECORDS SUMMARY | 2025-02-21 05:35 | XMS_ITS ---
Author Organization [facility] Servic es Address [address] [place] [address] Care Team Providers Care Deputy Jailer Name Role Phone Radha Mcintosh Primary Care Provider Gissell Kaufman Unavailable [phone] Dr. Bob Ureña Unavailable [phone] REASON FOR VISIT FILLING #17- $100 DUE TODAY SFS LVL 2 Encounters Encounter Location Date Provider Diagnosis [facility] [address] [place] [address] 2024 Bob Ureña Plan Of Treatment Next Appt Details Provider Name:Gissell Kaufman , 07/04/2025 02:20:00 PM, [address] [place], [address], Progress Notes * HERNAN TORIBIOB:1975 ([age] yo F)Acc No.[id number]:02/21/2025 Patient:?EMILY TORIBIO :?Bob Ureña DDSDOB:1975???Age:49 Y???Sex: FemaleDate:02/21/2025Phone:[phone]:[address], [address], [place], [id number]:Radha Mcintosh Subjective: * Chief Complaints: * F ILLING #17- $100 DUE TODAY SFS LVL 2 * Electronic signature of Dr. Bob Ureña , DMD, [id number] on 04/01/2025 at 06:44 AM ESTSign off status: Pending * Provider: Hugo Ureña DDS Date: 0 02/21/2025 Generated for Printing/Faxing/eTransmitting on:?04/01/2025 06:44 AM EST
--- OUTSIDE RECORDS SUMMARY | 2025-04-01 06:44 | XMS_ITS | Encounter Summary ---
Author Organization [facility] Address [address] [place] [address] Phone Care Team Providers Care Operations Label Clerk Name Role Phone Simón Davidson DO Primary Care Provider + Encounter Details DateTypeDepartmentCare Team (Latest Contact Info)Nejysjpgqmd1977Scanned Document [facility] [address] [place] [address] Scanning, Generic Provider Social History Tobacco UseTypesPacks/DayYears UsedDateSmoking Tobacco: Never Assessed CommentsUnknownSex and Gender InformationValueDate RecordedSex Assigned at Not on fileLegal EwlIoyxfn95/26/2022 12:23 AM ESTGender IdentityNot on file Sexual OrientationNot on filedocumented as of this encounter Plan of Treatment Not on file documented as of this encounter Procedures Procedure NamePriorityDate/TimeAssociated DiagnosisCommentsECHOCARDIOGRAM 11/09/1976 documented in this encounter Results * Echocardiogram (11/09/1976) Narrative 11/09/1976 Ordered by an unspecified provider. Authorizing ProviderResult TypeResult StatusGeneric Provider ScanningCV ECHO PROCEDURESFinal Result documented in this encounter Visit Diagnoses Not on filedocumented in this encounter Care Teams Team MemberRelationshipSpecialtyStart DateEnd Date Simón Davidson DO [address] [place] [address] PCP - General10/21/17documented as of this encounter
--- OUTSIDE RECORDS SUMMARY | 2025-04-01 06:44 | XMS_ITS | Patient Health Record ---
Author Organization [facility] Address [address] [place] [address] Care Team Providers Care Foster Care Social Worker Name Role Phone Arnaldo Radha Primary Care Provider Gissell Kaufman Unavailable [phone] Dr. Bob Ureña Unavailable [phone] Mary Fu Unavailable [phone] Allergies No Known Allergies Reason For Referral No Information Medications Medication SIG (Take, Route, Frequency, Duration) Notes Start Date End Date Status Aspirin 81 81 MG Tablet Chewable 1 tablet Orally Once a day Not-Taking/PRNTopamaxNot-Taking/PRNSkelaxinNot-Taking/PRNAmitizaNot-Taking/PRN ElavilNot-Taking/PRNLinzess 72 MCG Capsule1 capsule at least 30 minutes before the first meal of the day on an empty stomach Orally Once a dayNot-Taking/PRN Oyster Shell Calcium/D 500-5 MG-MCG Tablet1 tablet with meals Orally Twice a day Not-Taking/PRNTramadol 50 mg tablet2 tablets orally twice a dayNot-Taking/PRN Baclofen 10 MG Tablet1 tablet Orally Twice a dayNot-Taking/PRNmetroNIDAZOLE Not-Taking/PRNSemaglutide-Weight Management 0.25 MG/0.5ML Solution Auto-injector 0.5 mL SubcutaneousNot-Taking/PRNIron 325 (65 Fe) MG Tablet1 tablet Orally 1x a dayActivePropranolol HCl 20 MG Tablet 1 tablet Orally twice daily As needed ActiveTylenol Extra Strength 500 MG Tablet2 tablets Orally twice a dayActive Cardizem CD 240 MG Capsule Extended Release 24 Hour1 capsule Orally Once a day ActivehydrOXYzine Pamoate 25 MG Capsule1 capsule Orally every 6 hours as needed for lehfhiq85/06/2023ActiveMagnesium Oxide 400 MG Tablet1 tablet Orally twice a dayActiveEscitalopram Oxalate 20 MG TabletTAKE 1 TABLET Orally Once a dayActive Liothyronine Sodium 5 MCG Tablet2 tablet on an empty stomach Orally Once a day ActiveTurmericActiveProbioticActiveSuper B ComplexActiveMelatonin 10 MG Tabletas directed OrallyActiveSEROquel XRNot-Taking/PRNCleocin 2 % Cream1 application at bedtime Vaginal Once a day; Duration: 5 days08/20/2014Not-Taking/PRN Meclofenamate Sodium 50 MG Capsule1 capsule Orally prn bleeding; Duration: 30 Not-Taking/PRNVitamin D3 50 MCG (1999 [place]) Capsule1 capsule Orally Once a day ActiveoxyCODONE HCl 5 MG Tablet1 tablet as needed Orally 2x a dayNot-Taking/PRN WellbutrinNot-Taking/PRNZoloftNot-Taking/PRNSEROquelNot-Taking/PRN Social History Tobacco Use: Social History Observation Description Date Details (start date - stop date) Former Smoker NA - NA Social History GeneralSocial InfoQuestionAnswerNotesDepression Screening (PHQ-9):Little interest or pleasure in doing thingsSeveral daysFeeling down, depressed, or hopelessNot at allTrouble falling or staying asleep, or sleeping too muchNot at allFeeling tired or having little energyNearly every dayPoor appetite or overeatingNot at allFeeling bad about yourself-or that you are a failure or have let yourself or your family downNot at allTrouble concentrating on things, such as reading the newspaper or watching televisionSeveral daysMoving or speaking so slowly that other people could have noticed. Or the opposite being so fidgetyor restless that you have been moving around a lot more than usualSeveral days Thoughts that you would be better off , or of hurting yourself in some way Not at allTotal Umihi2FornngarcatopActk DepressionTobacco Screen:Are you a: former smoker? How long has it been since you last smoked?1-3 monthsAlcohol Screening:Did you have a drink containing alcohol in the past year?NoPoints0 InterpretationNegative Problems Problem Type SNOMED Code ICD Code Onset Dates Problem Status W/U Status Risk Notes Problem Generalized anxiety disorder (81760941) Generalized Anxiety Disorder (SANDRA) (F41.1) ActiveconfirmedProblemBody mass index 40+ - morbidly obese (310886304)BMI 40.0- 44.9, adult (Z68.41)ActiveconfirmedProblemDepressive disorder (26697341) Unspecified Depressive Disorder (F32.9)ActiveconfirmedProblemPost traumatic stress disorder (09540829)Post traumatic stress disorder (F43.10)Activeconfirmed Vital Signs Heart Rate 88 /min 10/24/2024 Jqnpfuac77 %10/24/2024lood pressure jwcyrxyan18 mm Hg10/24/20244423Vhkene33.5 in 10/24/2024lood pressure quqzgdcs039 mm Hg10/24/20247380Emavte545.0 lbs10/24/2024MI 47.37 kg/m210/24/2024 Encounters Encounter Location Date Provider Diagnosis [facility] [address] [place] [address] 05/24/2024 Radha Mcintosh Generalized Anxiety Disorder (SANDRA) F41.1 [facility] [address] [place] [address] 06/25/2024 Radha Mcintosh Generalized Anxiety Disorder (SANDRA) F41.1 [facility] [address] [place] [address] 01/09/2025 Radha Mcintosh Generalized Anxiety Disorder (SANDRA) F41.1 [facility] [address] [place] [address] 05/01/2024 Mary Fu Other dental procedure status Z98.818 ; Acute gingivitis, plaque induced K05.00 ; Encounter for dental examination and cleaning with abnormal findings Z01.21 ; Dental caries on pit and fissure surface penetrating into dentin K02.52 and Necrosis of pulp K04.1 [facility] [address] [place] [address] 11/01/2024 Gissell Kaufman Acute gingivitis, plaque induced K05.00 [facility] [address] [place] [address] 04/18/2024 Radha Mcintosh Generalized Anxiety Disorder (SANDRA) F41.1 ; Unspecified Depressive Disorder F32.9 and Post traumatic stress disorder F43.10 [facility] [address] [place] [address] 10/24/2024 Radha Mcintosh Generalized Anxiety Disorder (SANDRA) F41.1 and Post traumatic stress disorder F43.10 [facility] [address] [place] [address] 07/18/2024 Radha Mcintosh Generalized Anxiety Disorder (SANDRA) F41.1 ; Unspecified Depressive Disorder F32.9 and Post traumatic stress disorder F43.10 [facility] [address] [place] [address] 01/16/2025 Radha Mcintosh Generalized Anxiety Disorder (SANDRA) F41.1 ; Unspecified Depressive Disorder F32.9 and Post traumatic stress disorder F43.10 Assessments Encounter Date Diagnosis (ICD Code) Assessment Notes Treatment Notes Treatment Clinical Notes Section Notes 04/18/2024 Generalized Anxiety Disorder (GA D) (ICD-10 - F41.1) Recommended treatment is: FDA [...] contact information was provided to the patient/guardian. 10/24/2024Generalized Anxiety Disorder (SANDRA) (ICD-10 - F41.1) Recommended [...] contact information was provided to the patient/guardian. 01/16/2025Generalized Anxiety Disorder (SANDRA) (ICD-10 - F41.1) Recommended [...] contact information was provided to the patient/guardian. 01/16/2025Unspecified Depressive Disorder (ICD-10 - F32.9)10/24/2024Post traumatic stress disorder (ICD-10 - F43.10)11/01/2024ute gingivitis, plaque induced (ICD-10 - K05.00)01/09/2025Generalized Anxiety Disorder (SANDRA) (ICD-10 - F41.1)05/01/2024Other dental procedure status (ICD-10 - Z98.818)05/24/2024 Generalized Anxiety Disorder (SANDRA) (ICD-10 - F41.1)06/25/2024Generalized Anxiety Disorder (SANDRA) (ICD-10 - F41.1)07/18/2024Generalized Anxiety Disorder (SANDRA) (ICD-10 - F41.1) Recommended [...] contact information was provided to the patient/guardian. 07/18/2024Unspecified Depressive Disorder (ICD-10 - F32.9)04/18/2024Unspecified Depressive Disorder (ICD-10 - F32.9)4Post traumatic stress disorder (ICD-10 - F43.10)07/18/2024Post traumatic stress disorder (ICD-10 - F43.10) 4Acute gingivitis, plaque induced (ICD-10 - K05.00)01/16/2025Post traumatic stress disorder (ICD-10 - F43.10)05/01/2024Encounter for dental examination and cleaning with abnormal findings (ICD-10 - Z01.21)05/01/2024 Dental caries on pit and fissure surface penetrating into dentin (ICD-10 - K02.52)05/01/2024Necrosis of pulp (ICD-10 - K04.1) Plan Of Treatment Next Appt Details Provider Name:Gissell Kaufman , 07/04/2025 02:20:00 PM, [address], [place], [address], Insurance Providers Payer Name Payer Address Payer Phone Subscriber Number Group Number Insured Name Patient Relationship to Insured Coverage Start Date Coverage End Date MEDICARE CGS 1 [facility] [place] [phone] [id number] STEFANIELeroy Aaron - patient is the [id number] 2020MEDICAID SEC TO [facility] [address] [place] [id number], LISASelf - patient is the [id number] 2020DENTAL MEDICAID [facility] [address] [place] [address] [phone], LISASelf - patient is the [id number] 2019BH MEDICAID SEC TO [facility] [address] [place] [id number] Leroy TORIBIO - patient is the [id number] 2020 Medical (General) History Medical History History ICD Code Fibromyalgia AnxietyDepressionIBS-CHypothyroidChronic insomniaGERDChronic pain bilateral lower back painVitamin D DeficiencyOveractive bladderLyme DiseaseSurgical History Surgery Date(Month/Year) X4 Tnqahztwnmhj76/01/2015Nerve ablations from bulging gpayDpwpxtbfbmmsj12/01/2018 Hospitalization History Reason Date(Month/Year) see surgical
--- OUTSIDE RECORDS SUMMARY | 2025-04-01 06:44 | XMS_ITS | Encounter Summary ---
Author Organization [facility] Address [address] [place] [address] Care Team Providers Care Operations Management Professionals Name Role Phone Diony Sharma MD Primary Care Provider [phone] Kenyetta Dove MD Unavailable [phone] Simón Ozuna MD Unavailable [phone] Amanda Montiel MD Unavailable [phone] Krish Hodge MD Unavailable [phone] Beny Hoskins MD Unavailable [phone] Reason for Visit * ReasonCommentsMed Refill Encounter Details DateTypeDepartmentCare Team (Latest Contact Info)Cfenadwispr21/18/2025Refill [facility] [place] [facility] [address] [place] [phone] Amanda Montiel MD [address] [place] [address] Acute vaginitis Social History Tobacco UseTypesPacks/DayYears UsedDateSmoking Tobacco: Every DayCigarettes Smokeless Tobacco: Never Comments:Pt smoked 1/2 ppd s chata age [age] years old. Alcohol UseStandard Drinks/WeekCommentsNever0 (1 standard drink = 0.6 oz pure alcohol)PHQ-2AnswerDate RecordedPatient Health Questionnaire-2 Navby202 CommentsUnknownSex and Gender InformationValueDate RecordedSex Assigned at BirthNot on fileLegal SysNgsewg59/15/2023 7:12 PM EDTGender IdentityNot on fileSexual OrientationNot on fileOccupationIndustryJob Start DateJob End Date disabledNot on fileNot on fileNot on filedocumented as of this encounter Miscellaneous Notes * Telephone Encounter - Kassy Interiano MA - 03/18/2025 9:20 AM EDT JERRICA [id number] No next documented in this encounter Plan of Treatment DateTypeDepartmentCare Team (Latest Contact Info)Pkcbxaifsjq01/15/2026 11:00 AM EDTOffice Visit [facility] [place] [facility] [address] [place] [address] Kenyetta Dove MD [address] [place] [address] documented as of this encounter Visit Diagnoses Diagnosis Acute vaginitis Unspecified vaginitis and vulvovaginitis documented in this encounter Care Teams Team MemberRelationshipSpecialtyStart DateEnd Diony Sharma MD [address] [place] [address] PCP - GeneralInternal Medicine01/24/24 Kenyetta Dove MD [address] [place] [address] Referring PhysicianEndocrinology08/01/24 Simón Ozuna MD [address] [place] [place] [address] Referring PhysicianUrology08/01/24 Amanda Montiel MD [address] [place] [address] Obstetrics and Gynecology08/01/24 Krish Hodge MD [address] [place] [address] Referring PhysicianOphthalmology08/01/24 Beny Hoskins MD [address] [place] [address] [address] [place] [address] Referring PhysicianGastroenterology08/01/24 Family [facility] 08/01/24documented as of this encounter
--- OUTSIDE RECORDS SUMMARY | 2025-04-01 06:44 | XMS_ITS | Clinical Summary ---
Author Organization [facility] Address [address] [facility] [place] [address] Care Team Providers Care Strap Maker Name Role Phone Damian Lakhani MD Unavailable [phone] Source Comments The following information is NOT included in Care Everywhere downloads:Psychiatric notes, ECG results, Cardiac Rehab notes, Pulmonary Function notes, data from [facility] (includes but not limited toPregnancy data,audiograms, eye exams, pre-surgical evaluation notes, well-child exam data).[facility] Allergies No known active allergies Medications MedicationSigDispense QuantityRefillsLast FilledStart DateEnd DateStatus tramadol (ULTRAM) 50 MG tablet Take 2 tablets by mouth 2 times per day as needed for Spondylosis without zogqufucvq97/16/2023ctive temazepam (RESTORIL) 30 MG capsule TAKE 1 CAPSULE BY MOUTH ONCE A DAY (AT BEDTIME) NEEDED FOR SLEEP 30 DAY YUPSUU9707/27/2022ctive Multiple Vitamin (Multi Vitamin Daily) TABS Take by mouth.Active metoprolol (TOPROL-XL) 25 mg XL tablet Take by mouth.06/04/2022ctive magnesium oxide (MAG-OX) 400 MG tablet Take by mouth every 12 (twelve) hours.06/04/2022ctive levothyroxine (SYNTHROID) 112 MCG tablet Take 1 tablet (112 mcg) by mouth daily in the morning on an empty stomach 08/17/2022ctive fluconazole (DIFLUCAN) 100 MG tablet Take 100 mg by mouth daily. for 10 days08/10/2022ctive Cholecalciferol (vitamin D3) 50 MCG (1999 UT) CAPS capsule Take by mouth daily.08/13/2022ctive CALCIUM ORAL Calcium + D ActiveActive baclofen (LIORESAL) 10 MG tablet TAKE 1 TABLET (10 MG) BY MOUTH TWICE A DAY07/22/2022ctive ALPRAZolam (XANAX) 0.5 MG tablet Take 0.5 mg by mouth daily.07/27/2022ctive liothyronine (CYTOMEL) 5 MCG tablet Take 5 mcg by mouth 2 times daily.06/08/2022ctive Social History Tobacco UseTypesPacks/DayYears UsedDateSmoking Tobacco: FormerCigarettes Smokeless Tobacco: Never Tobacco Cessation:Counseling Given: Not Answered CommentsUnknownSex and Gender InformationValueDate RecordedSex Assigned at BirthNot on fileLegal FjgYolhvs92/23/2023 11:52 AM ESTGender IdentityNot on fileSexual OrientationNot on file Plan of Treatment Health MaintenanceDue DateLast SrgyOhoedxnpAovapvunlhm1977HIV Test 1992Hepatitis C Lwgtfvnk68/11/1995Tdap Iefvplv5904/09/1995Hepatitis A (HAV) Vaccine (optional start 19+ years)1996Hepatitis B (HBV) Vaccine (1 of 3 - 19+ 3-dose series)1996Pap Smear1998Annual Wellness Visit (G0438) 11/28/20159577Jwyyqllukfq14/11/2017CRC Bfjezsjit84/11/2022Cologuard (Stool DNA) 2022FIT2COVID-19 Vaccine ( - 2024- season)2025Influenza Vaccine (#1)2025Shingles (RZV) Vaccine (1 of 2)2027Cholesterol 3Pneumococcal Vaccine(s)Aged OutNo longer eligible based on patient's age to complete this topic Insurance * Guarantor: Jamila Pickard TypeRelation to PatientDate of BirthPhoneBilling AddressPersonal/TulcfaNwao[address] [place] [address] Care Teams Team MemberRelationshipSpecialtyStart DateEnd Damian Lakhani MD [address] [place] [address] PhysicianOrthopaedic Surgery10/02/22
--- OUTSIDE RECORDS SUMMARY | 2025-04-01 06:44 | XMS_ITS | Clinical Summary ---
Author Organization [facility] Address [address] [place] [address] Care Team Providers Care Logistics Management Specialist Name Role Phone Diony Sharma MD Primary Care Provider [phone] Kenyetta Dove MD Unavailable [phone] Simón Ozuna MD Unavailable [phone] Amanda Montiel MD Unavailable [phone] Krish Hodge MD Unavailable [phone] Beny Hoskins MD Unavailable [phone] Allergies No known active allergies Medications MedicationSigDispense QuantityRefillsLast FilledStart DateEnd DateStatus B Frqehpz-Wakyso-UQ (Super Quints B-50) tablet Take by mouthActive lubiprostone (Amitiza) 24 MCG capsule Take 24 mcg by mouth Daily as neededActive magnesium oxide (Mag-Ox) 400 MG tablet Take 400 mg by mouth in the morning and 400 mg in the evening.Active melatonin 10 MG tablet Take by mouthActive Multiple Vitamin (Multi Vitamin Daily) tablet Take by mouthActive Turmeric (QC TUMERIC COMPLEX PO) Take by mouthActive COLLAGEN PO Take by mouthActive ferrous sulfate 325 (65 Fe) MG tablet Take 325 mg by mouth in the morning. Take with meals.Active propranolol (Inderal) 20 MG tablet Take 20 mg by mouth in the morning and 20 mg before bedtime.Active Probiotic Product (PRO-BIOTIC BLEND PO) Take by mouthActive escitalopram (Lexapro) 20 MG tablet Take 20 mg by mouth DailyActive cholecalciferol (Vitamin D-3) 50 MCG (2000 UT) capsule Indications:Primary osteoarthritis involving multiple jointsTake 1 capsule (50 mcg) by mouth in the morning. 30 capsule 5Active metroNIDAZOLE (Metrogel) 0.75 % gel Indications:RosaceaApply twice daily to rosacea for 8 weeks. 45 g /ctive losartan-hydroCHLOROthiazide (Hyzaar) 100-12.5 MG tablet Take 1 tablet by mouth DailyActive HYDROcodone-acetaminophen ([place]) 5-325 MG tablet Indications:Acute pain of left kneeTake 1-2 tablets by mouth every 6 (six) hours if needed for severe pain 42 tablet 5Active liothyronine (Cytomel) 5 MCG tablet Indications:Postoperative hypothyroidismTake 1 tablet (5 mcg) by mouth Daily 90 tablet /ctive levothyroxine (Synthroid, Levoxyl) 125 MCG tablet Indications:Postoperative hypothyroidismTake 1 tablet (125 mcg) by mouth Daily 90 tablet 6Active nystatin (Mycostatin) ointment Indications:Acute vaginitisAPPLY a thin film TOPICALLY 2 TIMES A DAY to affected area NEEDED for irritation 30 g 03/18/2025tive nystatin (Mycostatin) ointment Indications:Cutaneous CandidiasisApply thin film BID prn irritation 30 g Discontinued metroNIDAZOLE (Flagyl) 500 MG tablet Indications:Bacterial vaginitisTake 1 tablet (500 mg) by mouth in the morning and 1 tablet (500 mg) before bedtime. Do all this for 7 days. 14 tablet Expired clindamycin (Cleocin) 2 % vaginal cream Indications:Bacterial vaginitisInsert 1 applicator into the vagina at bedtime for 7 days 40 g Expired Active Problems ProblemNoted DateDiagnosed DateRenal cyst, right12/20/2024 Overview (12/20/2024): [address] abd/pelvis 11/2024 Gzoxhuiggzxe87/24/2025Pulmonary hivkswbhzshf72/13/2025Menopausal state08/15/2024 Iron deficiency beyxge0208/04/2024Nonscarring hair loss, qpnmbctxcew13/23/2024 Acquired absence of uterus with remaining cervical stump02/20/2024Vitamin D oxqgcptfeu14/27/2024cquired fqeeneacbkziud73/27/2024Irritable bowel syndrome with ybrtzdfosoha21/27/2024Urinary ienowoliq34/27/2024Mixed stress and urge urinary /27/7904Dsdycohklgzw11/27/2024rimary osteoarthritis involving multiple rlfwdt1801/24/2024GAD (generalized anxiety disorder)01/24/2024 Moderate major uqcmdolevr22/27/2024Essential eaoejtfealje47/27/2024History of wuwyob4501/24/2024hronic bilateral thoracic back pain01/24/2024 Encounters DateTypeDepartmentCare MxkeAdsksyfekcg79/18/2025Refill [facility] [place] [facility] [address] [place] [phone] Amanda Montiel MD Acute fcxzzaqxh64/06/2025Refill [facility] [place] [facility] [address] [place] [address] Ashley Araya LPN Bacterial mgetdlpdu16/16/2025 2:45 PM EDTOffice Visit [facility] [address] [place] [address] Amanda Montiel MD Hormone imbalance; Pelvic pain in dprrvs4502/12/2025 2:00 PM EDTAncillary Procedure [facility] [place] [facility] [address] [place] [phone] Pelvic pain in ubbqjm8802/12/2025 11:10 AM EDTOffice Visit [facility] [address] [place] [address] Kenyetta Dove MD Postoperative hypothyroidism (Primary Dx); Abnormal cortisol level; Encounter for dietary consultation; Vitamin D deficiency; Class 3 severe obesity due to excess calories without serious comorbidity with body mass index (BMI) of 50.0 to 59.9 in adult ([facility])02/12/2025Travel 02/12/2025External Result Encounter [facility] External Department Unsolicited Provider, Generic External Data 01/31/2025Results Follow-Up [facility] [address] [place] [phone] Amanda Montiel MD IGP, APT HPV,RFX 16/18,45, Testosterone, free, total, NuSwab Vaginitis Plus (VG+), Additional followed-up results: Orders Only [facility] [place] [facility] [address] [place] [phone] Diony Benz MD 01/29/2025 3:15 PM EDTOffice Visit [facility] [address] [place] [phone] Amanda Montiel MD Encounter for gynecological examination without abnormal finding (Primary Dx); Vaginitis and vulvovaginitis; Cervicitis and endocervicitis; Acute vaginitis; Bacterial vaginitis; Vaginal odor; Vaginal discharge; Vaginal irritation; Encounter for screening for cervical cancer; Hormone vbklyledh05/02/8131Borzzl07/26/2025Orders Only [facility] [facility] [address] [place] [phone] Diony Sharma MD Acute pain of left knee01/21/2025Refill [facility] [place] [facility] [address] [place] [phone] Dalia Mar [employer] Acute pain of left knee01/18/2025[facility] [address] [place] [phone] Diony Benz MD 01/11/2025 1:30 PM EDTOffice Visit [facility] [address] [place] [phone] Risaliti, Dalia R, [employer] Acute pain of left knee (Primary Dx)01/11/20251714Cklwfw94/05/2025Refill [facility] [place] [facility] [address] [place] [phone] Kenyetta Dove MD Acquired hypothyroidismfrom Last 3 Months Immunizations ImmunizationAdministration DatesNext CgzHXD7908/01/1979,04/18/1979,05/13/1978DTaP, Wjbfzkfzdea52/14/1980Hep B, adult06/05/2001,12/28/2000,11/14/2000IPV10/11/1979, 08/01/1979,05/13/1978,1977MMR11/21/2000,01/07/1983 Family History Medical HistoryRelationNameCommentsHeart diseaseBrotherx 3LymphomaMaternal GrandmotherDepressionMotherDiabetes type IIMotherHypertensionMotherBreast cancer Paternal GrandmotherMental illnessSonx 2RelationNameStatusCommentsBrotherx 3 AliveDaughterx 2AliveFatherAliveMaternal GrandmotherMotherAlivePaternal GrandmotherSisterx 1AliveSonx 2Alive Social History Tobacco UseTypesPacks/DayYears UsedDateSmoking Tobacco: Every DayCigarettes Smokeless Tobacco: Never Tobacco Cessation:Ready to Q uit: Not Asked; Counseling Given: Not Answered Comments:Pt smoked 1/2 ppd since age 17 years old. Alcohol UseStandard Drinks/WeekCommentsNever0 (1 standard drink = 0.6 oz pure alcohol)PHQ-2AnswerDate RecordedPatient Health Questionnaire-2 Ymfaw881 CommentsUnknownSex and Gender InformationValueDate RecordedSex Assigned at BirthNot on fileLegal SulNlwvkc18/15/2023 7:12 PM EDTGender IdentityNot on fileSexual OrientationNot on fileOccupationIndustryJob Start DateJob End Date disabledNot on fileNot on fileNot on file Last Filed Vital Signs Vital SignReadingTime TakenCommentsBlood Deacjufi638/7609 2:52 PM EDT Ofbzs2698 11:06 AM EDTTemperature--Respiratory Qzre0330 11:06 AM EDTOxygen Dpblvcfljt65%02/12/2025 11:06 AM EDTInhaled Oxygen Concentration-- Nqjvty807 kg (326 lb)02/12/2025 2:52 PM SMGMlmdfh606.2 cm (5' 7 )02/12/2025 11:06 AM EDTBody Mass Index51.0602/12/2025 11:06 AM EDT Plan of Treatment DateTypeDepartmentCare Team (Latest Contact Info)Ljtnnbgbvyd60/15/2026 11:00 AM EDTOffice Visit [facility] [place] [facility] [address] [place] [address] Kenyetta Dove MD [address] [place] [address] Health MaintenanceDue DateLast DoneCommentsCT Qjnxchedotlm1977Colonoscopy 1977Colorectal Cancer Cvbvhrart1977FIT-DNA1977FIT1977 FOBT1977 6231Mxivylfcwjlzr1977DTaP/Tdap/Td Vaccines (4 - Tdap)1984 10/11/1979, 08/01/1979, 04/18/1979, Additional history existsHepatitis A Vaccines (1 of 2 - Risk 2-dose series)1996Pneumococcal Vaccine: Pediatrics (0 to 5 Years) and At-Risk Patients (6 to 64 Years) (1 of 2 - PCV)1996Pap SmearCOVID-19 Vaccine ( - season)2025 Influenza Vaccine (#1)2025Medicare Annual Wellness (AWV)01/29/2026 01/29/2025, 12/13/2024, 12/31/20216058Rfddqxkmf72/16/202609/, 01/20/2024, 12/29/2022ervical Cancer Yelfoffoh52/02/2030HPV/Bncgnh78, 11/07/2018IPV VerdvwkfWkwwxbtja13/14/1980, 08/01/1979, 05/13/1978, Additional history existsMMR YbybprceOwcykvshy91/25/2001, 01/07/1983Hepatitis B Vaccines Gcfymmhtf94/07/2002, 12/28/2000, 11/14/2000HIB VaccinesAged OutNo longer eligible based on patient's age to complete this topicHPV VaccinesAged OutNo longer eligible based on patient's age to complete this topicMeningococcal B VaccineAged OutNo longer eligible based on patient's age to complete this topic Meningococcal VaccineAged OutNo longer eligible based on patient's age to complete this topicRotavirus VaccinesAged OutNo longer eligible based on patient's age to complete this topic Procedures Procedure NamePriorityDate/TimeAssociated DiagnosisCommentsUS PELVIS RQWJBIDRRNNWFkytouy28/16/2025 2:35 PM EDT Pelvic pain in female BI MAMMOGRAM SCREENING TOMOSYNTHESIS UQDWEOWDQ14/16/2025 9:28 AM EDT RLTZFVLYsepsyq98/10/2025 1:21 PM EDT Hormone imbalance T3, KBOFNWmtwhrz29/10/2025 1:21 PM EDT Hormone imbalance T3, YQGRPcuuhwd62/10/2025 1:21 PM EDT Hormone imbalance HEMOGLOBIN N3FGpggzbn56/10/2025 1:21 PM EDT Hormone imbalance LNZCSVEOCDzamucu15/10/2025 1:21 PM EDT Hormone imbalance HHYuogwuy80/10/2025 1:21 PM EDT Hormone imbalance ITBEMNHTHXXHByepzfu74/10/2025 1:21 PM EDT Hormone imbalance TESTOSTERONE FREE AND OHWJLYfgxcki21/10/2025 1:21 PM EDT Hormone imbalance T4, LAITZezqfyl96/10/2025 1:21 PM EDT Hormone imbalance MNCMascegp93/10/2025 1:21 PM EDT Hormone imbalance VQUCurezqg09/10/2025 1:21 PM EDT Hormone imbalance GENITAL MYCOPLASMAS CESAR, LOHBWqekgog31/02/2025 12:00 AM EDT Vaginitis and vulvovaginitis Cervicitis and endocervicitis Acute vaginitis Bacterial vaginitis Vaginal odor Vaginal discharge Vaginal irritation IGP, APT HPV,RFX 16/18,82Ylwnfld51/02/2025 12:00 AM EDT Encounter for gynecological examination without abnormal finding Encounter for screening for cervical cancer NUSWAB VAGINITIS PLUS (VG+)Eiakqan0501/29/2025 12:00 AM EDT Vaginitis and vulvovaginitis Cervicitis and endocervicitis Acute vaginitis Bacterial vaginitis Vaginal odor Vaginal discharge Vaginal irritation MRI KNEE RIGHT WO BWLXQISXyivtwu30/29/2025 9:01 AM EDTXR PELVIS 1-2 VIEWSRoutine 01/08/2025 2:41 PM EDTfrom Last 3 Months Results * US pelvis transvaginal (02/12/2025 2:35 PM EDT)Anatomical RegionLaterality ModalityPelvisUltrasoundStudy GAStudy DateStudy EDDWorking SNEHAL (Source) 02/12/2025Specimen (Source)Anatomical Location / LateralityCollection Method / VolumeCollection TimeReceived Time Narrative 02/18/2025 3:35 PM EDT Images from the original result were not included. Obstetrics & Gynecology ? [address] ? [address] ? [address] ?[address], [address] ? [place] [address] ?[place] [address] ? - - - - - - - [...] not visualized. Ordering/Reading Provider: Amanda Montiel M.D. ??[employer] Mixer: Carolyn Palacio RDMS Authorizing ProviderResult TypeResult StatusAmanda Montiel [facility] US PROCEDURES Final Result * Bilateral screening mammogram with tomosynthesis (02/12/2025 9:28 AM EDT) Anatomical RegionLateralityModalityBreastBilateralMammographySpecimen (Source) Anatomical Location / LateralityCollection Method / VolumeCollection Time Received Time02/12/2025 9:28 AM EDT Impressions 02/12/2025 9:57 AM EDT NO MAMMOGRAPHIC EVIDENCE OF MALIGNANCY. ? ROUTINE FOLLOW-UP IS RECOMMENDED IN ONE YEAR. ? RESULT CODE: 1 ? Negative ? DENSITY CODE: 1 (<25% glandular) The breasts are almost entirely fatty. ? FOLLOW UP: 1YR ? The false-negative rate of mammography is approximately 10-percent. ? Management of a palpable abnormality must be based on clinical grounds. ? Patient was entered into a reminder system with a target due date for the next mammogram. ? Impression dictated by: Larry Perez M.D. ??02/12/2025 9:55 AM ? Dictation Location: S01 ? Dictated By: ?Larry Perez MD ? 02/12/25 0928 ? Signed By: <Electronically signed by Larry Perez MD in OV> ? 02/12/25 0955 Narrative 02/12/2025 9:57 AM [facility] ?[address] ?[place] [address] ?? [phone] ? Mammography Report ? Signed ? Patient: Alley,Lupe M ?MR#: [id number] ? : 1975 ?Acct:[id number] ? Age/Sex: 49 / F ?Adm Date: 09/15/25 ? Loc: [place] ?Room: ?Type: DEP CLI ?? Attending Dr: Referral Self ? Ordering Provider: SELF,REFERRAL ? Date of Service: 02/11/25 ? Procedure(s): MM screening mammo BI w/CAD ?? Accession Number(s): ([id number]) MM/MM screening mammo BI w/CAD: SCREENING ? Copies to: Diony Sharma MD ?? SELF,REFERRAL ? CLINICAL DATA: ??Screening for malignancy. ? SCREENING MAMMOGRAM - FULL FIELD DIGITAL WITH TOMOSYNTHESIS AND CAD ? COMPARISON:Priors dating back to 2020 ? Tomosynthesis craniocaudal and mediolateral oblique views of both breasts were obtained using low- dose digital technique. ?? This examination was reviewed with the aid of CAD. ? The breast tissue is almost entirely fatty. There are no dominant masses, typically malignant calcifications or architectural distortion. ??There has been no significant interval change. ? MM/MM screening mammo BI w/CAD ?? Procedure Note Radiology, Radiologist, - 02/12/2025 [place] [id number] Mammography Report Signed Patient: Lupe [place] MMR#: [id number] : 1975Acct:[id number] Age/Sex: 49 / FAdm Date: 02/11/25 Loc: [place] Room:Type: [facility] CL Attending Dr: Referral Self Ordering Provider: SELF,REFERRAL Date of Service: 02/11/25 Procedure(s): MM screening mammo BI w/CAD Accession Number(s): ([id number]) MM/MM screening mammo BI w/CAD:SCREENING Copies to: [...] Perez M.D. 02/12/2025 9:55 AM Dictation Location: [facility] Dictated By: Larry Perez MD 02/12/25 0928 Signed By: <Electronically signed by Larry Perez MD in OV> 02/12/25954 Authorizing ProviderResult TypeResult StatusGeneric External Data ProviderIMG BI PROCEDURESFinal Result * Insulin, fasting (02/06/2025 1:21 PM EDT)ComponentValueRef RangeTest Method Analysis TimePerformed AtPathologist SptyksxcpZkbciwq94.82.6 - 24.9 uIU/mL [facility]pecimen (Source)Anatomical Location / LateralityCollection Method / VolumeCollection TimeReceived TimeBloodVenous blood specimen / Unknown 02/06/2025 1:21 PM EDT02/06/2025 Narrative [facility] - 02/12/2025 6:06 AM EDT Performed at: 01 - [facility] [address], [place], [place] ??[id number] Admission Nurse Coordinator: Ramirez Ca PhD, Phone: ??[phone] Authorizing ProviderResult TypeResult StatusAmanda Montiel MDLAB BLOOD ORDERABLESFinal ResultPerforming OrganizationAddressCity/State/ZIP CodePhone Number [facility] * Progesterone (02/06/2025 1:21 PM EDT)ComponentValueRef RangeTest Method Analysis TimePerformed AtPathologist SignatureProgesterone0.1ng/mLLABC[facility]P Comment: ? Follicular phase ? 0.1 - ?? 0.9 ? Luteal phase ? 1.8 - ??23.9 ? Ovulation phase ?0.1 - ??12.0 ?First trimester ?11.0 - ??44.3 ?Second trimester ?? 25.4 - ??83.3 ?Third trimester ?58.7 - 214.0 ? Postmenopausal ? 0.0 - ?? 0.1 Specimen (Source)Anatomical Location / LateralityCollection Method / Volume Collection TimeReceived TimeBloodVenous blood specimen / Tjbddbu8202/06/2025 1:21 PM EDT02/06/2025 Narrative [facility] - 02/12/2025 6:06 AM EDT Performed at: [address] [place] [address] [address] [facility], [address], [place], [place] ??[id number] Admission Nurse Coordinator: Natanael Tilley MD, Phone: ??[phone] Authorizing ProviderResult TypeResult StatusPenalysa Montiel MDLAB BLOOD ORDERABLESFinal ResultPerforming OrganizationAddressCity/State/ZIP CodePhone Number [facility] * Estradiol (02/06/2025 1:21 PM EDT)ComponentValueRef RangeTest MethodAnalysis TimePerformed AtPathologist TdorfedplRvkhkuupg26.6pg/mLLABCORPComment: ? Adult Female ? Range ?Follicular phase ? 12.5 - 166.0 ?Ovulation phase ?85.8 - 498.0 ?Luteal phase ? 43.8 - 211.0 Postmenopausal <6.0 - 54.7 ? 1st trimester 215.0 - >4300.0 [place] ECLIA methodology Specimen (Source)Anatomical Location / LateralityCollection Method / Volume Collection TimeReceived TimeBloodVenous blood specimen / Cmfwpja8602/06/2025 1:21 PM EDT02/06/2025 Narrative [facility] - 02/12/2025 6:06 AM EDT Performed at: 03 - [facility] [address], [address], [place], [place] ??[id number] Admission Nurse Coordinator: Natanael Tilley MD, Phone: ??[phone] Authorizing ProviderResult TypeResult StatusAmanda Montiel MDCL[facility] BLOOD ORDERABLESFinal ResultPerforming OrganizationAddressCity/State/ZIP CodePhone Number [facility] * (ABNORMAL) Testosterone, free, total (02/06/2025 1:21 PM EDT)ComponentValueRef RangeTest MethodAnalysis TimePerformed AtPathologist SignatureTESTOSTERONE<3 (L)4 - 50 ng/dLLABCORPFree Testost Direct0.50.0 - 4.2 pg/mLLABCORPSpecimen (Source)Anatomical Location / LateralityCollection Method / VolumeCollection TimeReceived TimeBloodVenous blood specimen / Mtoezew7802/06/2025 1:21 PM EDT 02/06/2025 Narrative [facility] - 02/12/2025 6:06 AM EDT Performed at: - [address] ??[id number] Admission Nurse Coordinator: Ramirez Ca PhD, Phone: ??[phone] Performed at: ??02 - [address] ??[id number] Admission Nurse Coordinator: Roger Kenny MD, Phone: ??[phone] Authorizing ProviderResult TypeResult StatusAmanda Montiel MDCL[facility] BLOOD ORDERABLESFinal ResultPerforming OrganizationAddressCity/State/ZIP CodePhone Number [facility] * T3, free (02/06/2025 1:21 PM EDT)ComponentValueRef RangeTest MethodAnalysis TimePerformed AtPathologist SignatureT3, FREE3.22.0 - 4.4 pg/mLLABCORPSpecimen (Source)Anatomical Location / LateralityCollection Method / VolumeCollection TimeReceived TimeBloodVenous blood specimen / Hiyiyxp8902/06/2025 1:21 PM EDT 02/06/2025 Narrative [facility] - 02/12/2025 6:06 AM EDT Performed at: [address] ??[id number] Admission Nurse Coordinator: Ramirez Ca PhD, Phone: ??[phone] Authorizing ProviderResult TypeResult StatusAmanda BRUNO BLOOD ORDERABLESFinal ResultPerforming OrganizationAddressty/State/ZIP CodePhone Number [facility] * T3 (02/06/2025 1:21 PM EDT)ComponentValueRef RangeTest MethodAnalysis Time Performed AtPathologist SignatureT3 Sizpjqgwjdgvhvyt19644 - 180 ng/dLLABC[facility]P Specimen (Source)Anatomical Location / LateralityCollection Method / Volume Collection TimeReceived TimeBloodVenous blood specimen / Slcljwz3002/06/2025 1:21 PM EDT02/06/2025 Narrative [facility] - 02/12/2025 6:06 AM EDT Performed at: 01 - [address] ??[id number] Admission Nurse Coordinator: Ramirez Ca PhD, Phone: ??[phone] Authorizing ProviderResult TypeResult StatusAmanda BRUNO BLOOD ORDERABLESFinal ResultPerforming OrganizationAddressty/State/ZIP CodePhone Number [facility] * TSH (02/06/2025 1:21 PM EDT)ComponentValueRef RangeTest MethodAnalysis Time Performed AtPathologist SignatureTSH2.4900.450 - 4.500 uIU/mLLABCORPSpecimen (Source)Anatomical Location / LateralityCollection Method / VolumeCollection TimeReceived TimeBloodVenous blood specimen / Imvykwy5302/06/2025 1:21 PM EDT 02/06/2025 Narrative [facility] - 02/12/2025 6:06 AM EDT Performed at: 03 - [facility] [address] [facility], [address] ??[id number] Admission Nurse Coordinator: Natanael Tilley MD, Phone: ??[phone] Authorizing ProviderResult TypeResult Arianna BRUNO BLOOD ORDERABLESFinal ResultPerforming OrganizationAddressCity/State/ZIP CodePhone Number [facility] * T4, free (02/06/2025 1:21 PM EDT)ComponentValueRef RangeTest MethodAnalysis TimePerformed AtPathologist HgqvmdilyC1Hbhq(Direct)1.020.82 - 1.77 ng/dL [facility]PSpecimen (Source)Anatomical Location / LateralityCollection Method / VolumeCollection TimeReceived TimeBloodVenous blood specimen / Unknown 02/06/2025 1:21 PM EDT02/06/2025 Narrative [facility] - 02/12/2025 6:06 AM EDT Performed at: - [place] [address] [address] [facility], [address], [place], [place] ??[id number] Admission Nurse Coordinator: Natanael Tilley MD, Phone: ??[phone] Authorizing ProviderResult TypeResult StatusAmanda Montiel MDCL[facility] BLOOD ORDERABLESFinal ResultPerforming OrganizationAddressCity/State/ZIP CodePhone Number [facility] * (ABNORMAL) Hemoglobin A1c (02/06/2025 1:21 PM EDT)ComponentValueRef RangeTest MethodAnalysis TimePerformed AtPathologist ZuldozvryKmeC0G2.4(H)4.8 - 5.6 % [facility]PComment: ? Prediabetes: 5.7 - 6.4 Diabetes: >6.4 Glycemic control for adults with diabetes: <7.0 Specimen (Source)Anatomical Location / LateralityCollection Method / Volume Collection TimeReceived TimeBloodVenous blood specimen / Olnyhhz7902/06/2025 1:21 PM EDT02/06/2025 Narrative [facility] - 02/12/2025 6:06 AM EDT Performed at: - [address] ??[id number] Admission Nurse Coordinator: Ramirez Ca PhD, Phone: ??[phone] Authorizing ProviderResult TypeResult StatusAmanda Montiel MDCL[facility] BLOOD ORDERABLESFinal ResultPerforming OrganizationAddressty/State/ZIP CodePhone Number [facility] * Luteinizing hormone (02/06/2025 1:21 PM EDT)ComponentValueRef RangeTest Method Analysis TimePerformed AtPathologist SignatureLH5.1mIU/mLLABCORPComment: ? Adult Female ?Range ?Follicular phase ?2.4 - ??12.6 ?Ovulation phase ?14.0 - ??95.6 ?Luteal phase ?1.0 - ??11.4 ?Postmenopausal ?7.7 - ??58.5 Specimen (Source)Anatomical Location / LateralityCollection Method / Volume Collection TimeReceived TimeBloodVenous blood specimen / Sukmemk8202/06/2025 1:21 PM EDT02/06/2025 Narrative [facility] - 02/12/2025 6:06 AM EDT Performed at: 03 - [place] [address], [address], [place], [place] ??[id number] Admission Nurse Coordinator: Natanael Tilley MD, Phone: ??[phone] Authorizing ProviderResult TypeResult StatusAmanda Montiel MDLAB BLOOD ORDERABLESFinal ResultPerforming OrganizationAddressCity/State/ZIP CodePhone Number [facility] * Follicle stimulating hormone (02/06/2025 1:21 PM EDT)ComponentValueRef Range Test MethodAnalysis TimePerformed AtPathologist AsloavxepNDQ32.3mIU/mLL[facility] Comment: ? Adult Female ? Range ?Follicular phase ?3.5 - ??12.5 ?Ovulation phase ? 4.7 - ??21.5 ?Luteal phase ?1.7 - ?? 7.7 ?Postmenopausal ? 25.8 - 134.8 Specimen (Source)Anatomical Location / LateralityCollection Method / Volume Collection TimeReceived TimeBloodVenous blood specimen / Dtybive7202/06/2025 1:21 PM EDT02/06/2025 Narrative [facility] - 02/12/2025 6:06 AM EDT Performed at: 03 - [place] [address], [place], [place] ??[id number] Admission Nurse Coordinator: Natanael Tilley MD, Phone: ??[phone] Authorizing ProviderResult TypeResult StatusAmanda Montiel MDLAB BLOOD ORDERABLESFinal ResultPerforming OrganizationAddressty/[facility] CodePhone Number [facility] * GENITAL MYCOPLASMAS CESAR, SWAB (01/29/2025 12:00 AM EDT)ComponentValueRef Range Test MethodAnalysis TimePerformed AtPathologist SignatureMYCOPLASMA GENITALIUM NegativeNegativeLABCORPMYCOPLASMA HOMINISNegativeNegativeLABCORPUREAPLASMA SPP NegativeNegativeLABCORPSpecimen (Source)Anatomical Location / Laterality Collection Method / VolumeCollection TimeReceived TimeVaginal Fluid01/29/2025 01/29/2025 Narrative [facility] - 02/01/2025 3:07 PM EDT Test(s) 140230-Bnfttmtail hominis CESAR; 505752-Euuhiyfvfn spp CESAR was developed and its performance characteristics determined by [facility]. It has not been cleared or approved by the Food and Drug Administration. Performed at: ??01 - Lab[address] ??[id number] Admission Nurse Coordinator: Roger Kenny MD, Phone: ??[phone] Authorizing ProviderResult TypeResult StatusAmanda Montiel MDLAB CYTOLOGY ORDERABLESFinal ResultPerforming OrganizationAddressty/State/ZIP CodePhone Number [facility] * IGP, APT HPV,RFX 16/18,45 (01/29/2025 12:00 AM EDT)ComponentValueRef RangeTest MethodAnalysis TimePerformed AtPathologist SignatureDiagnosis:CommentL[facility]P Comment:NEGATIVE FOR INTRAEPITHELIAL LESION OR MALIGNANCY.Specimen Adequacy: CommentLABCORPComment:Satisfactory for evaluation. No endocervical component is identified.Clinician Provided ICD10:CommentLABCORPComment: Z01.419 Z12.4 Performed By:CommentLABCORPComment:Keisha Olivo, Automotive Quality Engineer ([facility])Cyto Comments .LABCORPNote:CommentLABCORPComment: The Pap smear is a screening test designed to aid in the detection of premalignant and malignant conditions of the uterine cervix. ??It is not a diagnostic procedure and should not be used as the sole means of detecting cervical cancer. ??Both false-positive and false-negative reports do occur. Test Methodology:CommentLABCORPComment: This liquid based ThinPrep(R) pap test was screened with the use of an image guided system. HPV AptimaNegativeNegativeLABCORPComment: This nucleic acid amplification test detects fourteen high-risk HPV types (16,18,31,33,35,39,45,51,52,56,58,59,66,68) without differentiation. Specimen (Source)Anatomical Location / LateralityCollection Method / Volume Collection TimeReceived TimeVaginal Fluid/07/2024 Narrative [facility] - 01/31/2025 5:07 PM EDT Performed at: 01 - Lab[address] ??[id number] Admission Nurse Coordinator: Laila Connelly MD, Phone: ??[phone] Performed at: ??02 - [address] ??[id number] Admission Nurse Coordinator: Laila Connelly MD, Phone: ??[phone] Specimen Comment: No. of containers..01 ThinPrep Vial Authorizing ProviderResult TypeResult StatusAmanda Montiel MDLAB BLOOD ORDERABLESFinal ResultPerforming OrganizationAddressCity/State/ZIP CodePhone Number [facility] * NuSwab Vaginitis Plus (VG+) (01/29/2025 12:00 AM EDT)ComponentValueRef Range Test MethodAnalysis TimePerformed AtPathologist SignatureAtopobium VaginaeLow - 0ScoreLABCORPBVAB 2Low - 0ScoreLABCORPMegasphaera 1Low - 0ScoreL[facility] Comment: Calculate total score by adding the 3 individual bacterial vaginosis (BV) marker scores together. ??Total score is interpreted as follows: Total score 0-1: Indicates the absence of BV. Total score ?? 2: Indeterminate for BV. Additional clinical ? data should be evaluated to establish a ? diagnosis. Total score 3-6: Indicates the presence of BV. Flower Albicans, NAANegativeNegativeLABCORPCandida Glabrata, NAANegative NegativeLABCORPTrich Vag By NAANegativeNegativeLABCORPChlamydia Trachomatis, CESAR NegativeNegativeLABCORPNeisseria Gonorrhoeae, NAANegativeNegativeLABCORPSpecimen (Source)Anatomical Location / LateralityCollection Method / VolumeCollection TimeReceived TimeVaginal Fluid Narrative [facility] - 02/01/2025 3:07 PM EDT Test(s) 920786- Atopobium vaginae; 168124- BVAB 2; 417687- ?Megasphaera 1 was developed and its performance characteristics determined by [facility]. It has not been cleared or approved by the Food and Drug Administration. Test(s) 526940-Dthaszd albicans, CESAR; 862978-Mtmfnjv glabrata, CESAR was developed and its performance characteristics determined by [facility]. It has not been cleared or approved by the Food and Drug Administration. Performed at: ??01 - Lab[address] ??[id number] Admission Nurse Coordinator: Roger Kenny MD, Phone: ??[phone] Authorizing ProviderResult TypeResult StatusAmanda BRUNO MICROBIOLOGY - GENERAL ORDERABLESFinal ResultPerforming OrganizationAddressCity/State/ZIP Code Phone Number [facility] * MRI KNEE RIGHT WO CONTRAS (01/25/2025 9:01 AM EDT)Anatomical RegionLaterality ModalityRadiographic Imaging Narrative Authorizing ProviderResult TypeResult StatusDiony JEFFERSON XR PROCEDURES Final Result * XR pelvis 1 or 2 views (01/08/2025 2:41 PM EDT)Anatomical RegionLaterality ModalityBody, PelvisRadiographic Imaging Narrative Authorizing ProviderResult TypeResult StatusRobert Demar PELAYOIMGeorgina XR PROCEDURES Final Result from Last 3 Months Insurance Care Teams Team MemberRelationshipSpecialtyStart DateEnd Diony Sharma MD [address] [place] [address] PCP - GeneralInternal Medicine01/24/24 Kenyetta Dove MD [address] [place] [address] Referring PhysicianEndocrinology08/01/24 Simón Ozuna MD [address] [place] [address] Referring PhysicianUrology08/01/24 Amanda Montiel MD [address] [facility] [address] [place] [address] Obstetrics and Gynecology08/01/24 Krish Hodge MD [address] [place] [address] Referring PhysicianOphthalmology08/01/24 Beny Hoksins MD [address] [place] [address] [address] [place] [address] Referring PhysicianGastroenterology08/01/24 [facility] Mental Health 08/01/24
--- OUTSIDE RECORDS SUMMARY | 2025-04-01 06:45 | XMS_ITS | Clinical Summary ---
Author Organization [facility] Address [address] [place] [id number] Care Team Providers Care Director Of Application Development Name Role Phone Simón Davidson DO Unavailable [phone] Allergies No known active allergies Medications MedicationSigDispense QuantityRefillsLast FilledStart DateEnd DateStatus Glucosamine-Chondroitin 500-400 mg tablet Take 1 tablet by mouth three times daily.Active FE FUMARATE/CA CARB/VITAMIN D3 (DRUEWOS-ZLDO0-ZVLZTJZ FUMARATE ORAL) Take by mouth.Active Multivitamin capsule Take 1 capsule by mouth once daily.Active B Complex-Folic Acid 0.4 mg tab Take by mouth.Active acidophilus-pectin, citrus (ACIDOPHILUS PROBIOTIC) 100 million-10 cell-mg cap Take by mouth.Active thyroid, pork, (ARMOUR THYROID) 60 mg tab Take by mouth.Active METHADONE HCL (METHADONE ORAL) Take by mouth.Active sertraline (ZOLOFT) 100 mg tablet Take 100 mg by mouth once daily.Active Topiramate (TOPAMAX) 50 mg tablet Take 50 mg by mouth twice daily.Active zolpidem (AMBIEN) 10 mg tab Take by mouth at bedtime as needed.Active buPROPion XL (WELLBUTRIN XL) 300 mg 24 hr tablet Take 300 mg by mouth once daily.Active Calcium Carbonate-Vitamin D3 (VITAMIN D-3) 180-5,000 mg-unit tab Take by mouth.Active Vehicle Base No.24, Bulk, (VERSABASEA) crea Active PROGESTERONE, BULK, MISC Active Conj Estrog-Medroxyprogest Tyrel 0.3-1.5 mg per tablet Take 1 tablet by mouth once daily.Active FOLIC ACID, BULK, MISC Active metaxalone 800 mg tablet Take 800 mg by mouth three times daily.Active CALCIUM CARBONATE/VITAMIN D3 (CALCIUM + D ORAL) Take by mouth.Active CYANOCOBALAMIN/COBAMAMIDE (B12 SUBLINGUAL) Dissolve under the tongue.Active ALPRAZolam 1 mg tablet Take 1 mg by mouth at bedtime as needed.Active amitriptyline 25 mg tablet Take 25 mg by mouth daily at bedtime.Active metroNIDAZOLE (METROGEL) 1 % gel Apply to affected area.Active lubiprostone (AMITIZA) 24 mcg capsule Take 24 mcg by mouth twice daily with meals.Active liothyronine (CYTOMEL) 5 mcg tablet Take 5 mcg by mouth once daily.Active levothyroxine (SYNTHROID) 112 mcg tablet Take 1 tablet (112 mcg) by mouth daily in the morning on an empty stomach 04/30/2023ctive Cholecalciferol, Vitamin D3, 50 mcg (2,000 unit) cap Take 1 capsule by mouth every afternoon.02/19/2023ctive dilTIAZem CD (CARDIZEM CD, CARTIA XT) 240 mg 24 hr capsule Take 1 capsule by mouth every afternoon.04/25/2023ctive escitalopram oxalate (LEXAPRO) 10 mg tablet Take 1 tablet by mouth every afternoon.05/02/2023ctive HYDROcodone-acetaminophen (NORCO) 5-325 mg per tablet TAKE 1 TABLET BY MOUTH 2 TIMES A DAY NEEDED FOR PAIN05/08/2023ctive magnesium oxide (MAG-OX) 400 mg (241.3 mg magnesium) tablet Take by mouth every 12 hours.06/04/2022ctive propranolol (INDERAL) 20 mg tablet TAKE 1 TABLET BY MOUTH 2 TIMES A DAY NEEDED FOR QAMANIT7905/03/2023ctive temazepam (RESTORIL) 30 mg cap TAKE 1 CAPSULE BY MOUTH ONCE A DAY (AT BEDTIME) NEEDED FOR SLEEP 30 DAY XQPYSW7507/27/2022ctive vit B-comp w-Fe,Ca,FA<1mg (IRON-VITAMINS ORAL) Take by mouth.Active melatonin 10 mg tab Take by mouth.Active Active Problems ProblemNoted DateDiagnosed DateChronic pain01/18/2014DepressionArthritis FibromyalgiaNeck painBack painHypothyroidIrritable bowel syndrome Family History Medical HistoryRelationCommentsALCOHOLIC [Other]FatherCancerMaternal Grandmother DEPRESSION [Other]Motherparkinsons [Other]Paternal GrandfatherCancerPaternal GrandmotherRelationStatusCommentsFatherMaternal GrandmotherMotherPaternal GrandfatherPaternal Grandmother Social History Tobacco UseTypesPacks/DayYears UsedDateSmoking Tobacco: FormerCigarettesQuit: 07/30/2011 Tobacco Cessation:Counseling Given: Not Answered Alcohol UseStandard Drinks/WeekCommentsNo0 (1 standard drink = 0.6 oz pure alcohol)sociallyArea Deprivation IndexAnswerDate RecordedNational Score (1-100), lower number is lower bdmo557205/17/2023State Score (1-10), lower number is lower gatr6253Data from: https://www.neighborhoodatlas.medicine.[facility].edu/. Last address used for gvzgcdvoeyk[address] [facility]3CommentsNo Sex and Gender InformationValueDate RecordedSex Assigned at BirthNot on file Legal HguEooyjn70/12/2013 1:57 PM EDTGender IdentityNot on fileSexual OrientationNot on fileOccupationIndustryJob Start DateJob End DateunemployedNot on fileNot on fileNot on file Last Filed Vital Signs Vital SignReadingTime TakenCommentsBlood Vjvvpzlr406/8105/17/2023 2:01 PM EST Soymy329005/17/2023 2:01 PM ESTTemperature--Respiratory Dqst602007/18/2022 2:01 PM ESTOxygen Bcmuwwocqf07%05/17/2023 2:01 PM ESTInhaled Oxygen Concentration-- Fdhmpg320.8 kg (268 lb 8.3 oz)05/17/2023 2:01 PM DAREgwvne260.2 cm (5' 7 ) 01/18/2014 2:26 PM EDTBody Mass Index42.0601/18/2014 2:26 PM EDT Plan of Treatment Health MaintenanceDue DateLast DoneCommentsDTaP,Tdap,Td Vaccine (4 - Tdap) , 08/01/1979, 04/18/1979, Additional history existsAnnual PCP Team Chronic Disease Visit1995Anxiety Kzuyshzae52/11/1995HIV Screening 1995Hepatitis C Hsmnvhlje64/11/1995Cervical Cancer Yocywyzgh17/11/1998 Medicare Annual Wellness Visit08/28/2013CT Bupeekyygwxr34/11/2022ologuard (FIT-DNA)04/09/20228821Fhltxumsacb77/11/2022olorectal Cancer Qjyvxuuzz95/11/2022 Fecal Occult Blood2022Lipid Qwrlzdfru71/11/4407Eufufsralijds09/11/2022 Mammogram Fkhwiabsa62ovid-19 Vaccine ( season) 2025Influenza Vaccine (#1)2025Diabetes Igsakzznw96 Hepatitis B IoahndlMdapevqzw78/07/2002, 12/28/2000, 11/14/2000 Procedures Procedure NamePriorityDate/TimeAssociated DiagnosisCommentsCOMPREHENSIVE METABOLIC UMVYWZczlsfj37/21/2023 8:07 AM EST Positive WILL (antinuclear antibody) from Last 3 Months or Most Recently Relevant to Health Maintenance Results * (ABNORMAL) COMP METABOLIC PANEL (05/19/2023 8:07 AM EST)ComponentValueRef RangeTest MethodAnalysis TimePerformed AtPathologist SignatureProtein, Total 6.76.3 - 8.0 g/dL05/19/2023 8:43 [facility] Albumin4.13.9 - 4.9 g/dL05/19/2023 8:43 AM [facility] LABCalcium, Total9.28.5 - 10.2 mg/dL05/19/2023 8:43 AM [facility] LABBilirubin, Total0.20.2 - 1.3 mg/dL05/19/2023 8:43 AM [facility] LABAlkaline Faiaampedec0501 - 123 U/L 05/19/2023 8:43 [facility] QXBDAK36(L)13 - 35 U/L 05/19/2023 8:43 AM [facility] FBZIYK979 - 38 U/L 05/19/2023 8:43 AM [facility] BERTvtmpek321(H)74 - 99 mg/dL05/19/2023 8:43 AM [facility] LABComment: The [place] Diabetes Association (ADA) provides guidance for cutoff values for fasting glucose andrandom glucose. The ADA defines fasting as no [...] Standards of Medical Care in Diabetes 2016, [place] Diabetes Association. Diabetes Care. 2016.39(Suppl 1). WZQ575 - 21 mg/dL05/19/2023 8:43 AM [facility] Creatinine0.650.58 - 0.96 mg/dL05/19/2023 8:43 AM [facility] MVMZuskxz620613 - 144 mmol/L107/20/2022 8:43 AM [facility] LABPotassium4.33.7 - 5.1 mmol/L107/20/2022 8:43 AM [facility] HHPTwpjvqgi356(H)97 - 105 mmol/L107/20/2022 8:43 AM [facility] CEICQ93204 - 30 mmol/L107/20/2022 8:43 AM [facility] LABAnion Gap99 - 18 mmol/L107/20/2022 8:43 AM [facility] LABEstimated Glomerular Filtration Ahis167 >=60 mL/min/1.73m 05/19/2023 8:43 AM [facility] LABComment:Estimated Glomerular Filtration Rate (eGFR) is calculated using the 2020 CKD-EPI creatinine equation. This equation utilizes serum creatinine, sex, and age as parameters. The creatinine assay has traceable calibration to isotope dilution- mass spectrometry. Refer to KDIGO guidelines for clinical interpretation. In patients with unstable renal function, e.g. those with acute kidney injury, the eGFRmay not accurately reflect actual GFR.Specimen (Source)Anatomical Location / LateralityCollection Method / VolumeCollection TimeReceived TimeBloodBLOOD SPECIMEN / UnknownVenipuncture / Wkwdjyf4105/19/2023 8:07 AM EST05/19/2023 8:08 AM EST Narrative Authorizing ProviderResult TypeResult StatusRupal Myles Brambila MDLABORATORY Final ResultPerforming OrganizationAddressCity/State/ZIP CodePhone Number [facility] [address] [place] [address] from Last 3 Months or Most Recently Relevant to Health Maintenance Insurance Care Teams Team MemberRelationshipSpecialtyStart DateEnd Date Simón Davidson DO [facility]11/22/22
--- OUTSIDE RECORDS SUMMARY | 2025-04-01 06:45 | XMS_ITS | CCD ---
Author Organization [facility] Care Team Providers Care Hygiene Coordinator Name Role Phone Donya Billings Primary Care Provider Oscar Reed Unavailable DO Donya Billings Primary Care Provider MARCELLUS Marr Attending Provider [phone] MD Phillip Benjamin Attending Provider DO Steve Coronel Emergency Provider Oliver Mario Unavailable Donya Billings Unavailable Unavailable Unavailable Unavailable Unavailable DO Donya Billings Primary Care Provider MD Phillip Benjamin Attending Provider DO Steve Coronel Emergency Provider MD Kenyetta Dove Attending Provider [phone] Unavailable Primary Care Provider Unavailabl DO Donya Mejia Primary Care Provider Javad Leach Attending Provider [phone] PROVIDER, UNKNOWN Admitting Unavailable PROVIDER, UNKNOWN Attending [...] Consulting Unavailable Awa, Dr. Donya Wray Primary [facility] [place] [facility] Benjamin, Dr. Koehler Attending Unavaila ble Awa, Dr. Donya Wray [facility] Gaurav Benjamin, Dr. Koehler Attending Unavaila ble Lavonne, Dr. Koehler Attending Unavaila ble Awa, Dr. Donya Wray [facility] Benjamin, Dr. Koehler Referring Unavaila ble Lavonne, Dr. Koehler Referring Unavaila ble Awa, Dr. Donya Wray [facility] cail[facility] Benjamin, Dr. Koehler Attending Unavaila ble Awa, Dr. Donya Wray [facility] Gaurav Benjamin, Dr. Koehler Referring Unavaila ble Awa, Dr. Donya Wray [facility] Gaur[facility] Benjamin, Dr. Koehler Attending Unavaila ble Awa, Dr. Donya Wray [facility] Gaur[facility] Benjamin, Dr. Koehler Attending Unavaila ble Lavonne, Dr. Koehler Referring Unavaila ble Awa, DO Donya Ashraf Primary Care Provider DO Yogi Michaels Emergency Provider Gaurav simeon [facility], PHYSICIAN Primary Care Provider Unava BHAVIN Dsouza Emergency Provider MD Amanda Valerio Attending Provider [phone] DO Melissa Singh II Primary Care Provider DO Mariya Kumari Emergency Provider MD Franklyn Herman Attending Provider MD Phillip Benjamin Other Provider [phone] Beny Hoskins Unavailable [phone] DO Yogi Michaels Emergency Provider Unavai MD Kenyetta Tong Attending Provider [phone] DO Melissa Singh II Other Provider [phone] MARCELLUS Mcintosh Attending Provider [phone] NO [facility], PHYSICIAN Primary Care Provider Unava MD Beny Cheng Attending Provider [phone] MAXIMILIANO Aguirre Other Provider Awa BARAKAT Donya Andriy Unavailable [phone] [facility], [facility] Referring Unavaila ble [place], [facility] Attending Unavaila ble [facility], [facility] Referring Unavaila ble [place], [facility] Attending Unavaila ble James, Roula Unavailable DO Melissa Singh II Primary Care Provider DO Jorge Jarrett Emergency Provider DO Melissa Singh II Primary Care Provider DO Jorge Jarrett Emergency Provider DO Melissa Singh II Attending Provider MARCELLUS Dominguez Attending Provider MAXIMILIANO Lozoya Emergency Provider DO Melissa Singh II J Primary Care Provider Samantha AVALOS, [facility] Primary Care Provider [phone] Self, Referral Attending Provider Unavailable MD Melissa Coon Primary Care Provider [phone] KANDACE Mar-C Dalia Attending Provider MD Kenyetta Dove Attending Provider Melissa Coon MD Primary Care Provider Shaggy PELAYO, Melissa Primary Care Provider Camila PELAYO, Andri Attending Provider Shaggy PELAYO, Melissa Primary Care Provider Camila PELAYO, Andri Attending Provider Melissa Coon MD Attending Provider Chaz Carrillo DO Attending Provider [phone] Kenyetta Dove MD Attending Provider [phone] Derrell PELAYO, Kenyetta F Unavailable Laith PELAYO, Donya P Unavailable Dinesh PELAYO, Amanda P Unavailable Ayesha PELAYO, Krish E Unavailable Gato PELAYO, Beny Unavailable [phone] Shaggy PELAYO, Melissa Primary Care Provider Chaz Carrillo DO Attending Provider Shon DELCID, Tanner Pimentel Attending Provider Kenyetta Dove MD Referring Provider Shaggy PELAYO, Melissa Primary Care Provider Isabela IT HELP DESK MANAGER-C, Dalia Attending Provider [phone] Shaggy PELAYO, Melissa Primary Care Provider [phone] Kenyetta Dove MD Attending Provider [phone] Robbie Dale MD Attending Provider [phone] Shaggy PELAYO, Melissa Primary Care Provider [phone] Rodney CHRISTIE, Omid Chávez Attending Provider Risaliti IT HELP DESK MANAGER-C, Dalia Referring Provider Chito PELAYO, Robbie Leon Other Provider [phone] Yogi Redding MD Attending Provider [phone] Javad Lozoya APRN Emergency Provider Shaggy PELAYO, Melissa Primary Care Provider Tanner Menendez PA-C Attending Provider Melissa Benz MD Attending Provider Donya OZUNA Attending Unavailable Santos Johnston Admitting Unavailable Santos Johnston Attending Unavailable NONE, XXXX Referring Unavailable Eldon Yates Attending Unavailable NONE, XXXX Referring Unavailable Eldon Yates Admitting Unavailable Shaggy PELAYO, Melissa Primary Care Provider [phone] Kenyetta Dove MD Attending Provider Melissa Coon MD Primary Care Provider Chaz Carrillo DO Attending Provider Self, Referral Attending Provider Unavailable MELISSA COON Attending Unavailable KENYETTA DOVE Attending Unavailable KENYETTA DOVE Referring Unavailable TANNER MENENDEZ Attending Unavailable RISDEVORA, DALIA R Attending Unavailable SHAGGY, MELISSA Kyler Referring Unavailable HILL, MELISSA Chávez Attending Unavailable KENYETTA DOVE F Attending Unavailable KENYETTA DOVE F Referring Unavailable TANNER MENENDEZ Referring Unavailable HILL, MELISSA Kyler Referring Unavailable HILL, MELISSA Kyler Referring Unavailable RISALITAMARA, DALIA R Attending Unavailable AMANDA VALERIO Attending Unavailable DERRELLKENYETTA HERNANDEZ F Attending Unavailable AMANDA VALERIO Attending Unavailable MELISSA COON Referring Unavailable Melissa Coon MD Primary Care Provider Isabela IT HELP DESK MANAGER-CDalia Attending Provider [phone] Melissa Coon Primary Care Unavailable Javad Lozoya Attending Unavailable Javad Lozoya Admitting Unavailable Melissa Coon Primary Care Unavailable Melissa Benz II Attending Unavailabl Melissa Wright II Admitting Unavailabl e Melissa Coon Primary Care Unavailable Tanner Menendez Attending Unavailable Workman, Summer M Admitting Unavailable Shaggy, Melissa Primary Care Unavailable Crawford II, Melissa M Attending Unavailabl e Demar II, Melissa M Admitting Unavailabl e Giedraitis, Andrius Attending Unavailable Giedraitis, Andrius Admitting Unavailable Calion, Melissa Primary Care Unavailable Calion, Melissa Admitting Unavailable Hill, Melissa Attending Unavailable Calion, Melissa Primary Care Unavailable Self, Referral Attending Unavailable Self, Referral Admitting Unavailable Shaggy, Melissa Primary Care Unavailable Chaz Carrillo Attending Unavailable Chaz Carrillo Admitting Unavailable Calion, Melissa Primary Care Unavailable Calion, Melissa Primary Care Unavailable Risaliti, Dalia Attending Unavailable Risaliti, Dalia Admitting Unavailable Calion, Melissa Primary Care Unavailable Derrell, Ahmad Admitting Unavailable Derrell, Ahmad Referring Unavailable Derrell, Ahmad Attending Unavailable Chaz Carrillo Attending Unavailable Chaz Carrillo Admitting Unavailable Shaggy, Melissa Primary Care Unavailable Calion, Melissa Primary Care Unavailable Derrell, Ahmad Attending Unavailable Derrell, Ahmad Admitting Unavailable Tanner Menendez Attending Unavailable Workjonathan, Summer M Admitting Unavailable Calion, Melissa Primary Care Unavailable Calion, Melissa Primary Care Unavailable Derrell, Ahmad Admitting Unavailable Derrell, Ahmad Attending Unavailable Calion, Melissa Primary Care Unavailable Risaliti, Dalia Attending Unavailable Risaliti, Dalia Admitting Unavailable Calion, Melissa Primary Care Unavailable Omid Quan Attending Unavailable Omid Quan Admitting Unavailable Robbie Dale Admitting Unavailable Calion, Melissa Primary Care Unavailable Risaliti, Dalia Referring Unavailable Robbie Dale Attending Unavailable Giedraitis , Andrius Vytauthannah Attending Unavailable Giedraitis , Andrius Vytautas Attending Unavailable Giedraitis , Andrius Vytautas Attending Unavailable Giedraitis , Andrius Vytautas Attending Unavailable Giedraitis , Andrius Vytautas Attending Unavailable Giedraitis , Andrius Vytautas Attending Unavailable Giedraitis , Andrius Vytautas Attending Unavailable Giedraitis , Andrius Vytautas Attending Unavailable Allergies Allergy ClassificationReported Allergen(s)Allergy TypeDate of OnsetReaction(s) Facility (1 source)Latex; Translations: [Latex]Propensity to adverse reactions (disorder) [facility])venlafaxine; Translations: [Effexor][facility] Medications Current Medications MedicationDrug Class(es)DatesSig (Normalized)Sig (Original)acetaminophen 500 mg oral tablet (20 sources)Start: 52-22-0327yzph 2 tablets by mouth twice dailyAcetaminophen 500 mg Tablet Active 1000 MG PO Twice daily September 20, 2022 12:00am Complies with drug therapyStart: 01-22-1258zjhx 1000 mg by mouth twice dailyAcetaminophen Active 1000 MG PO Twice daily September 20, 2022 12:00amTylenol bid Active acetaminophen 325 mg / HYDROcodone bitartrate 5 mg oral tablet (20 sources)Opioid AgonistStart: 01-11-2025 End: 52-15-3788mmgg 1-2 tablets by mouth every six hours for painHYDROcodone- acetaminophen ([place]) 5-325 MG tablet Indications: Acute pain of left knee Take 1-2 tablets by mouth every 6 (six) hours if needed for severe pain 42 tablet 01/22/2025 ActiveStart: 03-29-2023 End: 42-29-2468eevw 1 tablet by mouth twice daily as needed for painHydrocodone- Acetaminophen 5-325 mg Tablet Discontinued 1 TAB PO Twice daily as needed for Pain March 29, 2023 12:00am May 14, 2024 3:08pmNorco ActiveComment on above:TAKE 1 TABLET BY MOUTH 2 TIMES A DAY NEEDED FOR PAINamoxicillin 875 mg oral tablet (1 source)Penicillin-class AntibacterialStart: 43-76-0896tpiw 1 tablet by mouth every twelve hoursAmoxicillin 875 MG 1 tablet Orally Twice a day for 10 days Jun, ActiveAspir-81 (4 sources)Aspir-81 ActiveB Vobmfqy-Qmcjlb-WQ (Super Quints B-50) tablet (20 sources)B Cwgvmcj-Tkjecw-ZF (Super Quints B-50) tablet Take by mouth Active Calcium (13 sources)Phosphate Binder, CalciumCALCIUM ORAL Calcium + D Active 0 Active Calcium + D ActiveCalcium Carb-Cholecalciferol (CALCIUM 600 + D PO) (12 sources)Calcium Carb-Cholecalciferol (CALCIUM 600 + D PO) Take by mouth Activecephalexin 500 mg oral capsule (2 sources)Cephalosporin AntibacterialStart: 11-21-2024 End: 73-36-7978azly 1 capsule by mouth in the morning, then take 1 capsule by mouth in the evening, then take 1 capsule by mouth at bedtimecephalexin (Keflex) 500 MG capsule Indications: Cellulitis of right lower extremity Take 1 capsule (500 mg) by mouth in the morning and 1 capsule (500 mg) in the evening and 1 capsule (500 mg) beforebedtime. Do all this for 7 days. 21 capsule 11/21/2024 11/28/2024 Activecholecalciferol 0.05 mg oral capsule (20 sources)Vitamin DStart: 62-88-4599fqqa 1 capsule by mouth in the morning cholecalciferol (Vitamin D-3) 50 MCG (2000 UT) capsule Indications: Primary osteoarthritis involving multiple joints Take 1 capsule (50 mcg) by mouth in the morning. 30 capsule 11 09/24/2024 ActiveStart: 52-87-8397ahfg 1 capsule by mouth in the morningcholecalciferol (Vitamin D-3) 50 MCG (2000 UT) capsule Take 1 capsule by mouth in the morning. 02/19/2023 ActiveStart: 71-34-3043istl 1 capsule by mouth onceCholecalciferol, Vitamin D3, 50 mcg (2,000 unit) cap Take 1 capsule by mouth every afternoon. 0 02/19/2023 ActiveStart: 08-13-2022 Cholecalciferol (vitamin D3) 50 MCG (2000 UT) CAPS capsule Take by mouth daily. 0 08/13/2022 ActiveStart: 27-15-6125ubeu 1 capsule by mouth every week Cholecalciferol (Vitamin D3) 50,000 unit capsule Active 23916 UNIT PO every week July 18, 2018 1:00am Complies with drug therapytake 1 capsule by mouth once dailyVitamin D3 1.25 MG (14702 UT) Oral Capsule TAKE 1 CAPSULE Daily Quantity: 0 Refills: 0 Ordered: 28-Jul-2022 DO ActiveComment on above:Take 1 capsule by mouth every afternoon.clindamycin 20 mg/ml vaginal cream (2 sources)Lincosamide AntibacterialStart: 01-30-2025 End: 43-55-3438rqocdunnqrr (Cleocin) 2 % vaginal cream Indications: Vaginitis and vulvovaginitis , Cervicitis and endocervicitis , Acute vaginitis , Bacterial vaginitis Insert 1 applicator into the vagina at bedtime for 7 days 40 g 01/30/2025 02/06/2025 ActiveCollagen (20 sources)COLLAGEN PO Take by mouth Activediclofenac sodium 50 mg delayed release oral tablet (6 sources)Nonsteroidal Anti-inflammatory Drugtake 1 tablet by mouth in the morningdiclofenac (Voltaren) 50 MG EC tablet Take 1 tablet by mouth in the morning and 1 tablet before bedtime. Do not crush, chew, or split.. Active escitalopram 20 mg oral tablet (20 sources)Serotonin Reuptake InhibitorStart: 07-88-7396tkxl 1 tablet by mouth once dailyEscitalopram Oxalate (Lexapro) 20 mg tablet Active 20 MG PO Daily May 14, 2024 1:00am Complies with drug therapyStart: 63-79-3934jjfl 1 tablet by mouth in the morningescitalopram (Lexapro) 10 MG tablet Take 1 tablet by mouth in the morning. 05/02/2023 ActiveStart: 52-86-1450mxkj 1 tablet by mouth onceescitalopram oxalate (LEXAPRO) 10 mg tablet Take 1 tablet by mouth every afternoon. 0 05/02/2023 ActiveStart: 03-29-2023 End: 41-18-1860buzm 2 tablets by mouth once dailyEscitalopram Oxalate (Lexapro) 5 mg Tablet Discontinued 10 MG PO Daily March 29, 2023 12:00am May 14, 2024 3:08pmStart: 15-99-9022ehfz 1 tablet by mouth once dailyEscitalopram Oxalate (Lexapro) 5 mg Tablet Active 5 MG PO Daily March 29, 2023 12:00am Comment on above:Take 1 tablet by mouth every afternoon.ferrous sulfate 325 mg oral tablet (20 sources)Start: 59-47-3731uqal 1 tablet by mouth once dailyFerrous Sulfate 325 mg (65 mg iron) tablet Active 325 MG PO Daily May 14, 2024 1:00am Complies with drug therapyfluocinonide 0.5 mg/ml topical solution (6 sources)CorticosteroidStart: 77-51-4896hamocvicqadn (Lidex) 0.05 % external solution Apply 1 application topically Daily 01/18/2024 Activefurosemide 40 mg oral tablet (20 sources)Loop DiureticStart: 99-29-0223cosw 1 tablet by mouth twice daily Furosemide 40 mg tablet Active 40 MG PO Twice daily November 29, 2024 12:00am Complies with drug therapyStart: 10-16-2024 End: 84-02-3285kcdf 1 tablet by mouth once dailyfurosemide (Lasix) 40 MG tablet Indications: Lower extremity edema Take 1 tablet (40 mg) by mouth Daily 30 tablet 10/16/2024 11/21/2024 Discontinued (Reorder)Start: 02-82-0848mnix 1 tablet by mouth once dailyfurosemide (Lasix) 20 MG tablet Indications: Lower extremity edema , Bilateral leg edema Take 1 tablet (20 mg) by mouth Daily for 5 days 5 tablet 10/10/2024 ActivehydroCHLOROthiazide 12.5 mg / losartan potassium 100 mg oral tablet (20 sources)Thiazide Diuretic, Angiotensin 2 Receptor Blockertake 1 tablet by mouth once dailylosartan-hydroCHLOROthiazide (Hyzaar) 100-12.5 MG tablet Take 1 tablet by mouth Daily Activeketoconazole 20 mg/ml medicated shampoo (6 sources)Azole AntifungalStart: 96-46-1564pjzopalfkzeq (NIZOral) 2 % shampoo Apply 1 application topically 2 (two) times a week 01/18/2024 Active L.acid,gas,rg,rham-B.ani-cran (up4 Probiotics Women's) (20 sources)Start: 05-14-2024L.acid,gas,rg,rham-B.ani-cran (up4 Probiotics Women's) Active PO May 14, 2024 1:00am Complies with drug therapyStart: 38-75-7671Kozyg: 05-14-2024L.acid,gas,rg,rham-B.ani-cran (up4 Probiotics Women's) Active PO May 14, 2024 1:00amStart: 05-14-2024 L.acid,gas,rg,rham-B.ani-cran (up4 Probiotics Women's) Active PO May 14, 2024 12:00amlevothyroxine sodium 0.125 mg oral tablet (20 sources)l-ThyroxineStart: 08-14-2024 End: 64-56-6134ecfn 1 tablet by mouth once dailylevothyroxine (Synthroid, Levoxyl) 125 MCG tablet Indications: Postoperative hypothyroidism Take 1 tablet (125 mcg) by mouth Daily 90 tablet 3 02/12/2025 02/07/2026 ActiveStart: 56-61-0546brgd 1 capsule by mouth once dailyLevothyroxine 112 mcg capsule Active 112 MCG PO Daily May 14, 2024 1:00am Complies with drugtherapyStart: 95-51-2960zqcl 1 tablet by mouth before mealtimelevothyroxine (Synthroid, Levoxyl) 112 MCG tablet Take 112 mcg by mouth in the morning. Take beforemeals. 04/30/2023 ActiveStart: 52-19-9067yeye 1 tablet by mouth once daily in the morningSynthroid 125 MCG Oral Tablet TAKE 1 TABLET BY MOUTH DAILY IN THE MORNING ON AN EMPTY STOMACH Quantity: 90 Refills: 0 Ordered: 11-Mar-2022 DO Start : 26-Nov-2021 ActiveStart: 11-22-2018 End: 31-34-8564Dulqtmvmcaeep 137 mcg tablet Discontinued 112 MCG PO Daily November 22, 2018 12:00am May 14, 2024 3:09pmStart: 47-43-0633yvay 112 ug by mouth once dailyLevothyroxine Active 112 MCG PO Daily November 22, 2018 12:00am Start: 00-45-9339ioxo 137 ug by mouth once dailyLevothyroxine Active 137 MCG PO Daily November 22, 2018 12:00amLevothyroxine Sodium 112 MCG Oral for 90 Days Activetake 1 tablet by mouth once daily in the morningSynthroid 175 MCG 1 tablet in the morning on an empty stomach Orally Once a day ActiveComment on above: Take 1 tablet (112 mcg) by mouth daily in the morning on an empty stomach linaclotide 0.145 mg oral capsule (10 sources)Guanylate Cyclase-C AgonistStart: 26-22-1743Tpqtvpc 145 MCG 1 capsule at least 30 minutes before the first meal of the day on an empty stomach Orally Once a day for 30 day(s) May, Active End: 78-84-2031vdtz 1 capsule by mouth before mealtimelinaCLOtide (Linzess) 145 MCG capsule Take 145 mcg by mouth in the morning. Take before meals. 01/06/2024 Discontinuedliothyronine sodium 0.005 mg oral tablet (20 sources)l-TriiodothyronineStart: 01-01-2025 End: 89-98-8771hiol 1 tablet by mouth twice dailyliothyronine (Cytomel) 5 MCG tablet Indications: Acquired hypothyroidism TAKE 1 TABLET BY MOUTH 2 TIMES A DAY 180 tablet 1 01/01/2025 02/12/2025 Discontinued (Reorder)Start: 05-08-2024 End: 75-38-4492xtet 1 tablet by mouth once dailyLiothyronine 5 mcg tablet Active 5 MCG PO Daily May 14, 2024 3:09pm Complies with drug therapyStart: 09-20-2022 End: 77-98-7738cgrs 10 mg by mouth once dailyLiothyronine 5 mcg Tablet Discontinued 10 MCG PO Daily September 20, 2022 12:00am May 1443:12pm takes 10mg dailyStart: 70-21-8211pzum 10 mg by mouth once dailyLiothyronine Active 10 MCG PO Daily September 20, 2022 12:00am takes 10mg dailyStart: 97-52-4283cgds 1 tablet by mouth twice dailyliothyronine (CYTOMEL) 5 MCG tablet Take 5 mcg by mouth 2 times daily. 0 06/08/2022 Activetake 1 tablet by mouth every twenty-four hoursLiothyronine Sodium 50 MCG 1 tablet on an empty stomach Orally Once a day Activetake 1 tablet by mouth every twenty-four hours Liothyronine Sodium 50 MCG 1 tablet on an empty stomach Orally Once a day Active Comment on above:Take 5 mcg by mouth once daily.lubiprostone 0.024 mg oral capsule (20 sources)Chloride Channel ActivatorStart: 51-88-9531loyb 1 capsule by mouth once daily as neededLubiprostone 24 mcg capsule Active 24 MCG PO Daily as needed May 14, 2024 3:10pmStart: 48-70-3175wvug 1 capsule by mouth once daily as neededLubiprostone 24 mcg capsule Active 24 MCG PO Daily as needed May 14, 2024 2:10pmStart: 94-97-9032wtsx 1 capsule by mouth twice daily at mealtimeLubiprostone 8 MCG 1 capsule with food and water Orally Twice a day for 30 days May, ActiveStart: 09-20-2022 End: 82-62-4635mghv 1 capsule by mouth once daily as neededLubiprostone 24 mcg capsule Active 24 MCG PO Daily as needed May 14, 2024 3:10pm Complies wit h drug therapyStart: 09-20-2022 End: 43-93-6396iqho 1 capsule by mouth once dailyLubiprostone 24 mcg Capsule Discontinued 24 MCG PO Daily September 20, 2022 12:00am May 14, 2024 3:12pm Start: 09-20-2022 End: 12-54-8906vdmn 1 capsule by mouth once dailyLubiprostone 24 mcg Capsule Discontinued 24 MCG PO Daily September 19, 2022 11:00pm May 14, 2024 2:12pm Start: 55-80-3425ibit 24 ug by mouth once dailyLubiprostone Active 24 MCG PO Daily September 19, 2022 11:00pmStart: 76-69-5099ssom 24 ug by mouth once daily Lubiprostone Active 24 MCG PO Daily September 20, 2022 12:00amStart: 09-01-2022 take 1 capsule by mouth twice daily at mealtimeLubiprostone 24 MCG 1 capsule with food and water Orally Twice a day for 30 days Aug, ActiveStart: 81-35-1966jegr 1 capsule by mouth twice daily at mealtimeLubiprostone 24 MCG 1 capsule with food and water Orally Twice a day for 30 days Aug, Active take 1 capsule by mouth once daily at mealtimeAmitiza 24 MCG 1 capsule with food and water Orally once a day ActiveComment on above:Take 24 mcg by mouth twice daily with meals.Magnesium (20 sources)Start: 66-20-6288ihuq 2 tablets by mouth twice dailyMagnesium 200 mg Tablet Active 400 MG PO Twice daily July 18, 2018 1:00am Complies with drug therapyStart: 73-83-7579symj 2 tablets by mouth twice dailyStart: 51-76-6970nprm 2 tablets by mouth twice dailyMagnesium 200 mg Tablet Active 400 MG PO Twice daily July 18, 2018 1:00amStart: 24-48-3140otvx 2 tablets by mouth twice dailyMagnesium 200 mg Tablet Active 400 MG PO Twice daily July 18, 2018 12:00amStart: 81-39-4814gjbd 400 mg by mouth twice dailyMagnesium Active 400 MG PO Twice daily July 18, 2018 12:00amStart: 72-05-5629dplw 400 mg by mouth twice dailyMagnesium Active 400 MG PO Twice daily July 18, 2018 1:00amStart: 52-84-8483nhkp 200 mg by mouth twice dailyMagnesium Active 200 MG PO Twice daily July 18, 2018 1:00amStart: 99-68-3455yrep 200 mg by mouth twice dailyMagnesium Active 200 MG PO Twice daily July 18, 2018 12:00ammelatonin 10 mg oral tablet (20 sources)Start: 40-58-5596ledk 1 tablet by mouth once daily at bedtime Melatonin 10 mg Tablet Active 10 MG PO Daily at bedtime July 18, 2018 1:00am Complies with drug therapyMelatonin 10 MG as directed Orally Active Comment on above:Take by mouth.metFORMIN hydrochloride 500 mg oral tablet (6 sources)Biguanidetake 1 tablet by mouth in the morningmetFORMIN (Glucophage) 500 MG tablet Take 1 tablet by mouth in the morning and 1 tablet in the evening. Take with meals. ActivemetroNIDAZOLE 0.0075 mg/mg topical gel (20 sources)Nitroimidazole AntimicrobialStart: 66-63-0255Unczaqfelrpdd 0.75 % gel Active 1 APPLIC TOPICAL Twice daily November 29, 2024 12:00am Complies with dr tyson therapyStart: 10-09-2024 End: 52-07-9710lmksrSCLZGPQE (Metrogel) 0.75 % gel Indications: Rosacea Apply twice daily to rosacea for 8 weeks. 45 g 10/09/2024 10/09/2025 Active metroNIDAZOLE (Metrogel) 1 % gel Apply topically ActiveComment on above:Apply to affected area.Multi For Her (8 sources)Multi For Her as directed Orally ActiveMultiple Vitamin (Multi Vitamin Daily) tablet (20 sources)Multiple Vitamin (Multi Vitamin Daily) tablet Take by mouth Active Multiple Vitamin (Multi Vitamin Daily) TABS (5 sources)Multiple Vitamin (Multi Vitamin Daily) TABS Take by mouth. 0 Active Multivitamin (Multiple Vitamins) Tablet (20 sources)Start: 27-11-7318wipy 1 tablet by mouth once dailyMultivitamin (Multiple Vitamins) Tablet Active 1 TAB PO Daily July 18, 2018 1:00am Complies with drug therapyStart: 07-70-0659poug 1 tablet by mouth once daily Start: 96-98-7720zvom 1 tablet by mouth once dailyMultivitamin (Multiple Vitamins) Tablet Active 1 TAB PO Daily July 18, 2018 1:00amStart: 46-32-3707nupf 1 tablet by mouth once dailyMultivitamin (Multiple Vitamins) Tablet Active 1 TAB PO Daily July 18, 2018 12:00amNystatin (20 sources)Polyene AntifungalStart: 97-22-9897Wynwo: 90-83-8268sirbgerj Active TOPICAL November 29, 2024 12:00am Complies with drug therapyStart: 10-16-2024 nystatin (Mycostatin) ointment Indications: Cutaneous Candidiasis Apply thin film BID prn irritation 30 g 1 10/16/2024 Activepolyethylene glycol 3350 53457 mg powder for oral solution (5 sources)Osmotic LaxativeStart: 35-52-2461zrln 17 g by mouth once daily Polyethylene Glycol 3350 17 GM/SCOOP 17gm Orally Once a day for 30 days please dispense largest quantity Aug, ActivePotassium Chloride (20 sources)Start: 56-61-2417Dynuh: 99-49-6489beciuxugy chloride Active PO November 29, 2024 12:00am Complies with drug therapyStart: 11-28-2024 End: 38-15-5390rtsl 1 tablet by mouth once dailypotassium chloride CR (Klor-Con M10) 10 MEQ ER tablet Indications: Bilateral lower extremity edema Take 1 tablet (10 mEq) by mouth Daily Do not crush or chew. 11/28/2024 12/13/2024 Discontinued (Therapy completed)Start: 11-21-2024 End: 90-79-1141catrmtyhk chloride CR (Klor-Con M10) 10 MEQ ER tablet Indications: Bilateral lower extremity edema Take 2 tablets (20 mEq) by mouth Daily Do not crush or chew. 60 tablet 11/21/2024 11/21/2025 ActiveStart: 10-16-2024 End: 96-25-4582peyt 1 tablet by mouth once dailypotassium chloride CR (Klor-Con M10) 10 MEQ ER tablet Indications: Lower extremity edema Take 1 tablet (10 mEq) by mouth Daily Do not crush or chew. 30 tablet 10/16/2024 11/21/2024 Discontinued (Reorder)predniSONE 20 mg oral tablet (13 sources)Start: 37-82-4879rmfs 2 tablets by mouth once daily at mealtime Prednisone 20 mg tablet Active 40 MG PO Daily January 02, 2025 12:00am administer with food or milk Complies with drug therapyStart: 03-07-2024 predniSONE (Deltasone) 20 MG tablet Indications: Bursitis of other bursa of right hip Take two tablets once a day for 5 days 10 tablet 03/07/2024 Active Start: 70-48-8955dmjrfszjwv 10 mg 5 tablets for 2 days, 4 tablets x2 days, then 3 x2 days, 2 x2 days, 1 x2 days Orally as directed for 10 days Feb, Not-Taking/PRNprobiotic (1 source)probiotic ActiveProbiotic Product (PRO-BIOTIC BLEND PO) (20 sources)Probiotic Product (PRO-BIOTIC BLEND PO) Take by mouth Active propranolol hydrochloride 20 mg oral tablet (20 sources)beta-Adrenergic BlockerStart: 05-03-2023 End: 10-07-4413ftxi 1 tablet by mouth twice dailyPropranolol 20 mg tablet Active 20 MG PO Twice daily July 22, 2023 1:00am Complies with drug therapytake 1 tablet by mouth every twenty-four hoursPropranolol HCl 20 MG 1 tablet Orally Once a day ActiveComment on above:TAKE 1 TABLET BY MOUTH 2 TIMES A DAY NEEDED FOR ANXIETYsaccharomyces boulardii 250 mg oral capsule (12 sources)take 1 capsule by mouth once daily in the morningsaccharomyces boulardii (Florastor) 250 MG capsule Take 250 mg by mouth Daily in the Morning ActiveSemaglutide,0.25 or 0.5MG/DOS, (Ozempic, 0.25 or 0.5 MG/DOSE,) 2 MG/3ML solution pen-injector (12 sources)Start: 53-18-6607unqhwo 0.25 mg by subcutaneous injection every week, then inject 0.5 mg by subcutaneous injection every weekSemaglutide,0.25 or 0.5MG/DOS, (Ozempic, 0.25 or 0.5 MG/DOSE,) 2 MG/3ML solution pen-injector Indications: Type 2 Diabetes Mellitus Inject 0.25 mg under the skin 1 (one) time per week for 28 days, THEN 0.5 mg 1 (one) time per week for 14 days. 3 mL 01/24/2024 ActiveStart: 01-24-2024 End: 37-21-2883tawtmn 0.25 mg by subcutaneous injection every week, then inject 0.5 mg by subcutaneous injection every weekSemaglutide,0.25 or 0.5MG/DOS, (Ozempic, 0.25 or 0.5 MG/DOSE,) 2 MG/3ML solution pen-injector Indications: Type 2 Diabetes Mellitus Inject 0.25 mg under the skin 1 (one) time per week for 28 days, THEN 0.5 mg 1 (one) time per week for 14 days. 3 mL 01/24/2024 03/05/2024 ActiveSemaglutide-Weight Management (Wegovy) 0.25 MG/0.5ML solution auto-injector (10 sources)Start: 76-38-9965mpcvjr 0.25 mg by subcutaneous injection every week Semaglutide-Weight Management (Wegovy) 0.25 MG/0.5ML solution auto-injector Indications: BMI 40.0-44.9, adult (CMS/HCC) Inject 0.25 mg under the skin 1 (one) time per week 0.5 mL 3 01/31/2024 Activetemazepam 30 mg oral capsule (20 sources)BenzodiazepineStart: 62-30-0219nzip 1 capsule by mouth once daily for sleepTemazepam 30 mg capsule Active 30 MG PO Daily at bedtime as needed for sleep 05 30November 29, 2024 12:00am use if needed night of sleep study Complies with drug therapyStart: 87-44-1278kbxm 1 capsule by mouth once daily at bedtime as needed for sleeptemazepam (RESTORIL) 30 MG capsule TAKE 1 CAPSULE BY MOUTH ONCE A DAY (AT BEDTIME) NEEDED FOR SLEEP 30 DAY SUPPLY 0 07/27/2022 Active Start: 10-21-2017 End: 69-07-0869vrqz 2 capsules by mouth once daily at bedtime as neededTemazepam (Restoril) 15 mg Capsule Discontinued 30 MG PO Daily at bedtime as needed for Insomnia October 21, 2017 12:00am September 20, 2022 7:24pm End: 75-30-9882dpfkbauon (Restoril) 15 MG capsule 1 (one) time each day at the same time 01/06/2024 DiscontinuedTemazepam 7.5 MG TAKE 3 CAPSULES BY MOUTH AT BEDTIME NEEDED FOR SLEEP FOR 1 WEEK, 2 CAPS AT BEDTIME FOR 1 WEEK, 1 CAP AT BEDTIME FOR 1 WEEK, 1 CAP AT BEDT Oral for 28 Days Not-Taking/PRNComment on above:TAKE 1 CAPSULE BY MOUTH ONCE A DAY (AT BEDTIME) NEEDED FOR SLEEP 30 DAY SUPPLY1 ml triamcinolone acetonide 40 mg/ml prefilled syringe (20 sources)CorticosteroidStart: 84-84-3710yzehiulgbixgf acetonide (Kenalog-40) injection 40 mgStart: 21-45-2528Lholiaf-40 Feb, 60 mgStart: 10-19-2018 Kenalog -40 mg September, 40 mgStart: 94-01-2911Aqllgrs -40 mg Mar, 40 mgStart: 43-54-4729Gdxhowg -40 mg Dec, 40 mgStart: 35-02-1915Apjgoyl - 40 mg Aug,Trulance 3 MG (1 source)Start: 65-55-8119fxwn 1 tablet by mouth once dailyTrulance 3 MG 1 tablet Orally Once a day for 90 days Apr, ActiveTurmeric extract (20 sources)Start: 81-33-1131tdjlzkzq Active PO May 14, 2024 1:00am Complies with drug therapyStart: 66-40-4193Kxxqp: 97-13-3531xjzmorvv Active PO May 14, 2024 1:00amStart: 82-39-2817luidunww Active PO May 14, 2024 12:00amTurmeric (QC TUMERIC COMPLEX PO) Take by mouth ActiveTurmeric Active Vitamin B Complex (13 sources)Start: 39-40-6059Vsfwv: 58-21-9800swadyyp B complex Active PO November 29, 2024 12:00am Complies with drug therapy Completed/Discontinued Medications MedicationDrug Class(es)DatesSig (Normalized)Sig (Original)acetaminophen 325 mg / oxyCODONE hydrochloride 5 mg oral tablet (20 sources)Opioid AgonistStart: 09-20-2023 End: 93-39-2339qopf 1 tablet by mouth three times daily as needed for pain Oxycodone-Acetaminophen (Percocet) 5-325 mg tablet Discontinued 1 TAB PO Three times daily as needed for pain 7 September 20, 2023 December 05, 2023 11:42am [id number] 200 actuat albuterol 0.09 mg/actuat metered dose inhaler (20 sources)beta2-Adrenergic AgonistStart: 12-05-2023 End: 30-32-3171Gocthdnos Sulfate 90 mcg/actuation HFA aerosol inhaler Discontinued 1 INH INHALATION Every 4 hours as needed for shortness of breath or wheezing 6.7 December 05, 2023 12:00am May 14, 2024 3:07pmStart: 12-05-2023 Albuterol Sulfate Active 1 INH INHALATION Every 4 hours 6.7 December 05, 2023 12:00amStart: 73-50-8668iqvb 2 puff(s) by inhalation every four hours as needed Albuterol Sulfate HFA 108 (90 Base) MCG/ACT 2 puffs as needed Inhalation every 4 hrs Mar, ActiveAlbuterol Sulfate 90 mcg/actuation HFA aerosol inhaler (6 sources)Start: 12-05-2023 End: 24-79-8396Zrktckhtu Sulfate 90 mcg/actuation HFA aerosol inhaler Discontinued 1 INH INHALATION Every 4 hours as needed for shortness of breath or wheezing 6.7 December 05, 2023 12:00am May 14, 2024 3:07pmStart: 12-05-2023 End: 10-45-5205Smvtadear Sulfate 90 mcg/actuation HFA aerosol inhaler Discontinued 1 INH INHALATION Every 4 hours as needed for shortness of breath or wheezing 6.7 December 04, 2023 11:00pm May 14, 2024 2:07pmALPRAZolam 0.5 mg oral tablet (20 sources)BenzodiazepineStart: 05-03-2022 End: 45-03-9817pgdf 1 tablet by mouth once as neededAlprazolam 0.5 mg tablet Discontinued 0.5 MG PO As Directed as needed for Anxiety September 20, 2022 1 2:00am March 29, 2023 8:34am stated that she takes as needed, maybe once every couple of days.Start: 07-18-2018 End: 88-81-6674ktsk 0.5 mg by mouth once daily as needed for anxietyAlprazolam 1 mg tablet Discontinued 0.5 MG PO Daily as needed for Anxiety July 18, 2018 1:00am September 20, 2022 7:22pmStart: 07-18-2018 End: 33-34-5375rqrp 0.5 mg by mouth once dailyAlprazolam Discontinued 0.5 MG PO Daily July 18, 2018 1:00am September 20, 2022 7:22pmStart: 07-18-2018 End: 65-07-8207rdjj 1 mg by mouth once dailyAlprazolam Active 1 MG PO Daily July 18, 2018 1:00amXanax prn Not-Taking/PRNXanax prn Not-TakingXanax prn ActiveXanax ActiveComment on above:Take 1 mg by mouth at bedtime as needed. amitriptyline hydrochloride 25 mg oral tablet (20 sources)Tricyclic AntidepressantStart: 04-11-2018 End: 82-34-8070ehvy 3 tablets by mouth at bedtimeAmitriptyline 25 mg Tablet Discontinued 75 MG PO Bedtime April 11, 2018 1:00am September 20, 2022 7:23pm Start: 04-11-2018 End: 57-92-1064oqea 75 mg by mouth at bedtimeAmitriptyline Discontinued 75 MG PO Bedtime April 11, 2018 1:00am September 20, 2022 7:23pm End: 82-21-0753acxp 1 tablet by mouth at bedtimeamitriptyline (Elavil) 25 MG tablet Take 25 mg by mouth at bedtime 01/06/2024 Discontinuedtake 1 tablet by mouth every twenty-four hoursAmitriptyline HCl 75 MG 1 tablet at bedtime Orally Once a day ActiveComment on above:Take 25 mg by mouth daily at bedtime. amoxicillin 875 mg / clavulanate 125 mg oral tablet (20 sources)Penicillin-class AntibacterialStart: 12-05-2023 End: 57-36-0225pxuo 1 tablet by mouth twice dailyAmoxicillin-Pot Clavulanate 875-125 mg tablet Discontinued 1 TAB PO Twice daily 18 03December 05, 2023 12:00am May 14, 2024 3:08pmascorbic acid 1000 mg oral tablet (20 sources)Vitamin CStart: 07-18-2018 End: 56-22-9235limu 1 tablet by mouth once daily in the morningAscorbic Acid (Vitamin C) (Vitamin C) 1,000 mg Tablet Discontinued 1000 MG PO Every morning July 18, 2018 1:00am September 20, 2022 7:23pmaspirin 81 mg chewable tablet (20 sources)Platelet Aggregation Inhibitor, Nonsteroidal Anti-inflammatory Drug Start: 03-29-2023 End: 13-19-4931vkom 1 tablet by mouth once dailyAspirin 81 mg Tablet,Chewable Discontinued 81 MG PO Daily March 29, 2023 12:00am December 041:41amB Complex-Folic Acid 0.4 mg tab (1 source)B Complex-Folic Acid 0.4 mg tab Take by mouth. 0 ActiveComment on above:Take by mouth.baclofen 10 mg oral tablet (20 sources)gamma-Aminobutyric Acid-ergic AgonistStart: 09-20-2022 End: 89-11-9985ozda 1 tablet by mouth once dailyBaclofen 10 mg tablet Discontinued 10 MG PO Daily September 20, 2022 12:00am July 22, 2023 11:38am Start: 04-66-7561gmjj 1 tablet by mouth twice dailybaclofen (LIORESAL) 10 MG tablet TAKE 1 TABLET (10 MG) BY MOUTH TWICE A DAY 0 07/22/2022 ActiveStart: 09-23-2021 End: 00-08-2843huda 1 tablet by mouth once daily at bedtimeBaclofen 20 MG Oral Tablet TAKE 1 TABLET BY MOUTH EVERYDAY AT BEDTIME Quantity: 90 Refills: 0 Ordere d: 23-Sep-2021 DO Start : 23-Sep-2021 ActiveBaclofen Not-Taking/PRNBaclofen Activebenzonatate 200 mg oral capsule (20 sources)Non-narcotic AntitussiveStart: 05-14-2024 End: 93-02-3844fzsd 1 capsule by mouth three times daily as needed for cough Benzonatate 200 mg capsule Discontinued 200 MG PO Three times daily as needed for cough 2023 1:00am November 29, 2024 9:52amStart: 04-28-2022 take 1 capsule by mouth every eight hoursBenzonatate 100 MG 1 capsule as needed Orally Three times a day for 10 days Mar, Activebiotin 10 mg oral capsule (20 sources)Start: 07-18-2018 End: 57-93-6977opcy 1 capsule by mouth once dailyBiotin 10,000 mcg Capsule Discontinued 70553 MCG PO Daily July 18, 2018 1:00am September 20, 2022 7:23pm24 hr buPROPion hydrochloride 300 mg extended release oral tablet (20 sources)AminoketoneStart: 10-21-2017 End: 05-96-3263mzsr 1 tablet by mouth once daily in the morningBupropion Hcl 300 mg Tablet Extended Release 24 Hr Discontinued 300 MG PO Every morning October 21, 2017 12:00am September 20, 2022 7:23pm End: 00-24-3326wygp 1 tablet by mouth every twenty-four hours in the morning buPROPion XL (Wellbutrin XL) 300 MG 24 hr tablet Take 300 mg by mouth in the morning. 01/06/2024 DiscontinuedComment on above:Take 300 mg by mouth once daily.busPIRone hydrochloride 15 mg oral tablet (5 sources) End: 96-65-5527gzhx 1 tablet by mouth in the morning, then take 1 tablet by mouth in the evening, then take 1 tablet by mouth at bedtimebusPIRone (Buspar) 15 MG tablet Take 15 mg by mouth in the morning and 15 mg in the evening and 15 mg before bedtime. 01/06/2024 Discontinuedtake 1 tablet by mouth every twelve hoursbusPIRone HCl 5 MG 1 tablet Orally Twice a day ActiveCalcium Carbonate (5 sources)Oscal 500/200 D-3 TABS TAKE 1 TABLET DAILY DIRECTED. Quantity: 0 Refills: 0 Ordered: 44-Kzm-1123KA Activecalcium carbonate 1250 mg / cholecalciferol 200 unt oral tablet (20 sources)Vitamin DStart: 07-18-2018 End: 83-06-0363exlq 1 tablet by mouth twice dailyCalcium Carbonate-Vitamin D3 (Os-Nirmal 500 + D3) 500 mg(1,250mg) -200 unit tablet Discontinued 1 TAB PO Twice daily July 18, 2018 1:00am September 20, 2022 7:23pmCalcium Carbonate / vitamin D3 (1 source)CALCIUM CARBONATE/VITAMIN D3 (CALCIUM + D ORAL) Take by mouth. 0 ActiveComment on above:Take by mouth.Calcium Carbonate-Vitamin D3 (Os-Nirmal 500 + D3) 500 mg(1,250mg) -200 unit tablet (20 sources)Start: 07-18-2018 End: 88-05-8674rxnw 1 tablet by mouth twice dailyCalcium Carbonate-Vitamin D3 (Os-Nirmal 500 + D3) 500 mg(1,250mg) -200 unit tablet Discontinued 1 TAB PO Twice daily July 18, 2018 12:00am September 20, 2022 6:23pmStart: 07-18-2018 End: 93-35-6217kuno 1 tablet by mouth twice dailyCalcium Carbonate-Vitamin D3 (Os-Nirmal 500 + D3) 500 mg(1,250mg) -200 unit tablet Discontinued 1 TAB PO Twice daily July 18, 2018 1:00am September 20, 2022 7:23pmCalcium Carbonate- Vitamin D3 (VITAMIN D-3) 180-5,000 mg-unit tab (1 source)Calcium Carbonate-Vitamin D3 (VITAMIN D-3) 180-5,000 mg-unit tab Take by mouth. 0 ActiveComment on above:Take by mouth.chondroitin sulfates 400 mg / glucosamine hydrochloride 500 mg oral tablet (1 source)take 1 tablet by mouth three times dailyGlucosamine-Chondroitin 500- 400 mg tablet Take 1 tablet by mouth three times daily. 0 ActiveComment on above:Take 1 tablet by mouth three times daily.cloNIDine hydrochloride 0.1 mg oral tablet (20 sources)Central alpha-2 Adrenergic AgonistStart: 12-20-2022 End: 97-39-3044dxax 1 tablet by mouth once daily as neededClonidine Hcl 0.1 mg tablet Discontinued 0.1 MG PO Daily as needed for hypertensive emergency December 20, 2022 4:03pm March 29, 2023 8:37amCYANOCOBALAMIN/COBAMAMIDE (B12 SUBLINGUAL) (1 source)CYANOCOBALAMIN/COBAMAMIDE (B12 SUBLINGUAL) Dissolve under the tongue. 0 ActiveComment on above:Dissolve under the tongue.24 hr dilTIAZem hydrochloride 240 mg extended release oral capsule (20 sources)Calcium Channel BlockerStart: 04-25-2023 End: 16-96-5438zqjs 1 capsule by mouth every twenty-four hours in the morning dilTIAZem CD (Cardizem CD) 240 MG 24 hr capsule Take 1 capsule by mouth in the morning. 04/25/2023 01/24/2024 DiscontinuedStart: 03-29-2023 End: 21-50-1640ijkq 1 capsule by mouth once dailyDiltiazem Hcl 240 mg capsule,extended release 24hr Active 240 MG PO Daily March 29, 2023 12:00am Complies with drug therapydilTIAZem HCl 240mg ActiveComment on above:Take 1 capsule by mouth every afternoon.doxycycline hyclate 100 mg oral capsule (20 sources)Tetracycline-class DrugStart: 05-14-2024 End: 43-12-9111bixm 1 capsule by mouth twice daily at mealtimeDoxycycline Hyclate 100 mg capsule Discontinued 100 MG PO Twice daily 10 12May 14, 2024 1:00am November 29, 2024 9:52am with foodStart: 04-96-6547fzjg 1 capsule by mouth every twelve hoursDoxycycline Hyclate 100 MG 1 capsule Orally Twice a day for 10 day(s) September, Not-Taking/PRNestrogens, conjugated (residential) 0.3 mg / medroxyPROGESTERone acetate 1.5 mg oral tablet (1 source)Progestin, Estrogentake 1 tablet by mouth once dailyConj Estrog- Medroxyprogest Tyrel 0.3-1.5 mg per tablet Take 1 tablet by mouth once daily. 0 ActiveComment on above:Take 1 tablet by mouth once daily.FE FUMARATE/CA CARB/VITAMIN D3 (LPDOXJP-HDMO3-NHOYNUM FUMARATE ORAL) (1 source)FE FUMARATE/CA CARB/VITAMIN D3 (PGIISYU-XHWI0-XLIVUUR FUMARATE ORAL) Take by mouth. 0 ActiveComment on above:Take by mouth.fluconazole 150 mg oral tablet (6 sources)Azole AntifungalStart: 10-16-2024 End: 34-00-7415glmf 1 tablet by mouth oncefluconazole (Diflucan) 150 MG tablet Indications: Candidiasis Take 1 tablet (150 mg) by mouth 1 (one) time for 1 dose 1 tablet 10/16/2024 10/16/2024 ExpiredStart: 99-62-5253dahe 1 tablet by mouth once dailyfluconazole (DIFLUCAN) 100 MG tablet Take 100 mg by mouth daily. for 10 days 0 08/10/2022 ActiveFOLIC ACID, BULK, MISC (1 source)FOLIC ACID, BULK, MISC12 hr guaiFENesin 600 mg extended release oral tablet (20 sources)Start: 03-33-2063fxcz 600 mg by mouth twice dailyGuaifenesin Active 600 MG PO Twice daily December 05, 2023 12:00amStart: 12-05-2023 End: 89-41-4680tmdy 1 tablet by mouth twice dailyGuaifenesin 600 mg tablet extended release 12hr Discontinued 600 MG PO Twice daily December 05, 2023 12:00am November 29, 2024 9:52amibuprofen 800 mg oral tablet (20 sources)Nonsteroidal Anti-inflammatory DrugStart: 12-15-2018 End: 42-85-4599gkyj 1 tablet by mouth every eight hours as needed for pain Ibuprofen 800 mg tablet Discontinued 800 MG PO Q8H as needed for pain December 15, 2018 12:00am September 20, 2022 7:23pmlactobacillus acidophilus [id number] unt / pectin 10 mg oral capsule (1 source)acidophilus-pectin, citrus (ACIDOPHILUS PROBIOTIC) 100 million-10 cell-mg cap Take by mouth. 0 ActiveComment on above:Take by mouth.magnesium oxide 400 mg oral tablet (20 sources)Start: 83-43-1704koee 1 tablet by mouth twice dailyMagnesium Oxide 400 MG Oral Tablet TAKE 1 TABLET TWICE DAILY. Quantity: 180 Refills: 3 Ordered: 04-Jun-2022 Phillip Benjamin MD Start : 04-Jun-2022 ActiveStart: 06-04-2022 magnesium oxide (MAG-OX) 400 mg (241.3 mg magnesium) tablet Take by mouth every 12 hours. 0 06/04/2022 ActiveStart: 91-77-7892hrwlxbizo oxide (MAG-OX) 400 MG tablet Take by mouth every 12 (twelve) hours. 0 06/04/2022 Activetake 1 tablet by mouth every twenty-four hoursMagnesium Oxide 400 MG 1 tablet as needed Orally Once a day ActiveComment on above:Take by mouth every 12 hours.Melatonin Maximum Strength TABS (7 sources)take 1 tablet by mouth at bedtimeMelatonin Maximum Strength TABS TAKE 1 TABLET Bedtime Quantity: 0 Refills: 0 Ordered: 04-Jun-2022 DOActivemeloxicam 15 mg oral tablet (20 sources)Nonsteroidal Anti-inflammatory DrugStart: 07-18-2018 End: 94-80-2107qraw 1 tablet by mouth once daily in the morningMeloxicam 15 mg tablet Discontinued 15 MG PO Every morning July 18, 2018 1:00am August 01, 2018 3:16pmmetaxalone 800 mg oral tablet (3 sources) End: 82-02-2719skcuuymfbr (Skelaxin) 800 MG tablet Take 800 mg by mouth in the morning and 800 mg at noon and 800 mg in the evening. 01/06/2024 Discontinued Comment on above:Take 800 mg by mouth three times daily.Methadone (1 source)Opioid AgonistMETHADONE HCL (METHADONE ORAL) Take by mouth. 0 Active Comment on above:Take by mouth.methIMAzole 10 mg oral tablet (20 sources)Thyroid Hormone Synthesis InhibitorStart: 07-18-2018 End: 03-76-0154cynx 5 mg by mouth onceMethimazole 10 mg tablet Discontinued 5 MG PO every Tuesday, , Tuesday, and Wednesday July 18, 2018 1:00am August 01, 2018 3:16pmStart: 07-18-2018 End: 68-72-4165utpd 5 mg by mouth onceMethimazole Discontinued 5 MG PO every Tuesday, , Tuesday, and Wednesday July 18, 2018 1:00am August 01, 2018 3:16pmStart: 10-21-2017 End: 98-42-1025Qlhylrqmzdy (Tapazole) 5 mg Tablet Discontinued 10 MG PO every Tuesday, Tuesday, and Saturday October 21, 2017 12:00am August 01, 2018 3:16pm methylPREDNISolone 4 mg oral tablet (20 sources)CorticosteroidStart: 12-05-2023 End: 82-10-5502vahy 1 tablet by mouth onceMethylprednisolone (Medrol (Jeffery)) 4 mg tablets,dose pack Discontinued 0 PO per package directions May 14, 2024 1:00am October 25, 2024 8:11am PO PER PKG DIR for 6 daysmetoprolol tartrate 25 mg oral tablet (20 sources)beta-Adrenergic BlockerStart: 09-20-2022 End: 37-88-1084mghz 1 tablet by mouth once dailyMetoprolol Tartrate 25 mg tablet Discontinued 25 MG PO Daily September 20, 2022 12:00am February 8:37am Start: 63-23-1823nscejafzql (TOPROL-XL) 25 mg XL tablet Take by mouth. 0 06/04/2022 Active End: 95-25-3877aeje 1 tablet by mouth every twenty-four hours in the morning metoprolol succinate XL (Toprol-XL) 50 MG 24 hr tablet Take 50 mg by mouth in the morning. 01/24/2024 Discontinuedtake 1 tablet by mouth once dailyMetoprolol Succinate ER 50 MG Oral Tablet Extended Release 24 Hour TAKE 1 TABLET BY MOUTH EVERY DAYQuantity: 90 Refills: 3 Ordered: 08-Dec-2022 Phillip Benjamin MD Active increaseminocycline 50 mg oral capsule (2 sources)Tetracycline-class DrugStart: 09-18-2024 End: 82-50-0463oxpg 1 capsule by mouth once daily at mealtimeminocycline 50 MG capsule TAKE 1 CAPSULE BY MOUTH EVERY DAY WITH FOOD 09/18/2024 12/13/2024 Discontinued (Therapy completed)Multi Vitamin Daily Oral Tablet (1 source)take 1 tablet by mouth once dailyMulti Vitamin Daily Oral Tablet TAKE 1 TABLET DAILY. Quantity: 0 Refills: 0 Ordered: 28-Jul-2022 DO ActiveMulti Vitamin Daily TABS (5 sources)Multi Vitamin Daily TABS TAKE 1 TABLET DAILY. Quantity: 0 Refills: 0 Ordered: 28-Jul-2022 DO ActiveMultivitamin capsule (1 source)take 1 capsule by mouth once dailyMultivitamin capsule Take 1 capsule by mouth once daily. 0 ActiveComment on above:Take 1 capsule by mouth once daily.mupirocin 0.02 mg/mg topical ointment (20 sources)RNA Synthetase Inhibitor AntibacterialStart: 12-02-2018 End: 01-95-8618Otlsqatkr 2 % ointment Discontinued 1 APPLIC TOPICAL Twice daily 11 12December 02, 2018 12:00am December 15, 2018 5:08pmnaproxen 500 mg oral tablet (20 sources)Nonsteroidal Anti-inflammatory DrugStart: 09-20-2023 End: 60-63-0838knam 1 tablet by mouth twice dailyNaproxen (Naprosyn) 500 mg tablet Discontinued 500 MG PO Twice daily October 04, 2023 6:31am December 05, 2023 11:42amomeprazole 20 mg delayed release oral capsule (20 sources)Proton Pump InhibitorStart: 04-11-2018 End: 70-37-2552tnck 1 tablet by mouth once dailyOmeprazole 20 mg Capsule,Delayed Release(Dr/Ec) Discontinued 1 TAB PO Daily April 11, 2018 1:00am August 01, 2018 3:16pmoseltamivir 75 mg oral capsule (20 sources)Neuraminidase InhibitorStart: 07-22-2023 End: 30-37-8788cnsw 1 capsule by mouth every twelve hoursOseltamivir (Tamiflu) 75 mg capsule Discontinued 75 MG PO Q12H 10 5 July 22, 2023 1:00am September 20, 2023 11:31amplecanatide 3 mg oral tablet (7 sources)Start: 22-08-9216vtey 1 tablet by mouth every twenty-four hours Trulance 3 MG 1 tablet Orally Once a day for 90 days Apr, Not-Taking/PRN PROGESTERONE, BULK, MISC (1 source)PROGESTERONE, BULK, MISCsertraline 100 mg oral tablet (3 sources)Serotonin Reuptake Inhibitor End: 79-98-4230xjvn 1 tablet by mouth in the morningsertraline (Zoloft) 100 MG tablet Take 100 mg by mouth in the morning. 01/06/2024 DiscontinuedComment on above:Take 100 mg by mouth once daily.terconazole 4 mg/ml vaginal cream (2 sources)Azole AntifungalStart: 10-16-2024 End: 10-36-6585ndjlbxxrlwe (Terazol 7) 0.4 % vaginal cream Indications: Vulvovaginal Candidiasis Insert 1 applicator into the vagina at bedtime for 7 days 45 g 2 10/16/2024 10/23/2024 Expiredthyroid (residential) 60 mg oral tablet (1 source)thyroid, pork, (ARMOUR THYROID) 60 mg tab Take by mouth. 0 Active Comment on above:Take by mouth.topiramate 50 mg oral tablet (3 sources) End: 73-38-9192ghig 1 tablet by mouth in the morningtopiramate 50 MG tablet Take 50 mg by mouth in the morning and 50 mg in the evening. 01/24/2024 Discontinued Comment on above:Take 50 mg by mouth twice daily.traMADol hydrochloride 50 mg oral tablet (20 sources)Opioid AgonistStart: 09-20-2022 End: 51-66-9037vjfr 100 mg by mouth twice dailyTramadol Discontinued 100 MG PO Twice daily September 20, 2022 12:00am March 29, 2023 8:37amStart: 08-12-2022 End: 43-93-4794bahb 2 tablets by mouth twice dailyTramadol 50 mg tablet Discontinued 100 MG PO Twice daily September 20, 2022 12:00am March 29, 2023 8:37amStart: 02-76-8901urks 1 tablet by mouth twice dailytraMADol HCl - 100 MG Oral Tablet TAKE 1 TABLET BY MOUTH TWICE A DAY Quantity: 60 Refills: 0 Ordered: 23-Oct-2021 DO Start : 23-Oct-2021 Active End: 47-64-4766izwt 1 tablet by mouth in the morning, then take 1 tablet by mouth every twenty-four hours in the eveningtraMADol ER (Ultram-ER) 100 MG 24 hr tablet Take 100 mg by mouth in the morning and 100 mg in the evening. 01/06/2024 Discontinuedtake 1 tablet by mouth every twenty-four hourstraMADol HCl 50 MG 1 tablet as needed Orally Once a day Not-Taking/PRNVehicle Base No.24, Bulk, (VERSABASEA) crea (1 source)Veh[employer] No.[employer], Bulk, (VERSABASEA) creavit B-comp w-Fe,Ca,FA<1mg (IRON-VITAMINS ORAL) (1 source)vit B-comp w-Fe,Ca,FA Take by mouth. 0 ActiveComment on above:Take by mouth.zolpidem tartrate 10 mg oral tablet (3 sources)gamma-Aminobutyric Acid-ergic Agonist End: 89-66-7209hngvbhys (Ambien) 10 MG tablet Take by mouth Daily as needed for sleep 01/06/2024 DiscontinuedComment on above:Take by mouth at bedtime as needed. Problems Active Problems Problem ClassificationProblemDateDocumented DateEpisodic/ChronicAbdominal pain (20 sources)Left upper quadrant pain; Translations: [Left upper quadrant pain] 78-20-3839FcrqlnvqSdbkd bronchitis (3 sources)Acute bronchitis, unspecified; Translations: [Acute bronchitis] 42-83-6013QmnbwoqxEhsbgomgbiwwyf/social admission (8 sources)Patient encounter status; Translations: [Dietary counseling and surveillance]72-74-9867WusmbtnqDhnznuy disorders (20 sources)Anxiety; Translations: [Anxiety state, unspecified]Onset: 01-24-2024 87-43-7506DmqsejzWuuckvljl and vision defects (14 sources)Diplopia; Translations: [Diplopia]EpisodicCardiac dysrhythmias (15 sources)Multiple premature ventricular complexes; Translations: [Other premature beats]Onset: 75-13-5554QmpygwbYkbekyq dysrhythmias (20 sources)Palpitations; Translations: [Palpitations]Onset: 11-25-2022 44-62-0849ElnjnarlXceybhl obstructive pulmonary disease and bronchiectasis (4 sources)Bronchitis, not specified as acute or chronic; Translations: [Bronchitis, not specified as acute orchronic]25-37-3942BzxrczfpCfkuiyupqclfu of surgical procedures or medical care (5 sources)Postoperative hypothyroidism; Translations: [Postprocedural hypothyroidism]Onset: 759517-63-2009LaemgrvFzwzgvlsqnmnk of surgical procedures or medical care (20 sources)Wound dehiscence; Translations: [Disruption of external operation (surgical) wound, not elsewhere classified, initial encounter]68-02-6166Aumsbnun Conditions associated with dizziness or vertigo (20 sources)Lightheadedness; Translations: [Dizziness and giddiness]12-20-2022 EpisodicEssential hypertension (20 sources)Hypertensive disorder; Translations: [Essential (primary) hypertension]Onset: 767066-47-2243WhujnimSuxqtyfsc and duodenitis (20 sources)Gastritis; Translations: [Unspecified chronic gastritis without bleeding]95-23-1402OmmtftmXmrktudkbihtjiwx hemorrhage (1 source)MelenaEpisodicGenitourinary symptoms and ill-defined conditions (20 sources)Mixed urinary incontinence; Translations: [Mixed incontinence]Onset: 237355-42-9338SwcgwteOunzbyat; including migraine (20 sources)Headache; Translations: [Headache]10-28-2101ShapsnkbRnsbzeavfeuo with complications and secondary hypertension (20 sources)Hypertensive urgency ; Translations: [Hypertensive urgency] 48-61-3373CccclanLuxfmbktjsrpx and screening for infectious disease (1 source)Other specified abnormal immunological findings in serum; Translations: [Positive WILL (antinuclear antibody)]Onset: 36-69-1953Doigdyuu Inflammatory diseases of female pelvic organs (10 sources)Acute vaginitis; Translations: [Acute vaginitis]44-82-7113Vmwvjapn Influenza (20 sources)Influenza; Translations: [Influenza due to unidentified influenza virus with other respiratory manifestations]27-40-3414BixqkyumEldyf disorders and dislocations; trauma-related (1 source)Unspecified internal derangement of left knee; Translations: [Unspecified internal derangement of left knee]Onset: 47-86-8602QeovjirWqipi disorders and dislocations; trauma-related (9 sources)Acute tear of lateral meniscus of left knee; Translations: [Other tear of lateral meniscus, currentinjury, left knee, initial encounter]02-08-2025 EpisodicMenopausal disorders (20 sources)Menopausal syndrome; Translations: [Menopausal and female climacteric states]Onset: 454195-31-7368OrepoynRbbt disorders (20 sources)Depressive disorder; Translations: [Depression]Onset: 01-24-2024 05-33-6406GczsinuDdhlyte system congenital anomalies (7 sources)Congenital anomaly of optic nerve; 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, spinal cord, and nervous system]ChronicNonmalignant breast conditions (20 sources)Large breast; Translations: [Hypertrophy of breast]10-03-2023 EpisodicNonspecific chest pain (20 sources)Chest pain; Translations: [Chest pain, unspecified]11-05-2022 EpisodicNutritional deficiencies (20 sources)Vitamin D deficiency; Translations: [Unspecified vitamin D deficiency]Onset: 340689-18-5910SiqtahoUxwb wounds of extremities (20 sources)Cat bite - wound; Translations: [Open bite of unspecified finger without damage to nail, initial encounter]52-62-6828SlkqeyuhZemczrrmziifva (20 sources)Arthritis; Translations: [Osteoarthritis of hip]Onset: 01-24-2024 83-33-4979SclvmjuQtaql connective tissue disease (7 sources)H/O: arthritis; Translations: [Personal history of arthritis]Episodic Other connective tissue disease (7 sources)H/O: musculoskeletal disease; Translations: [Personal history of other musculoskeletal disorders]EpisodicOther connective tissue disease (20 sources)Pain in calf; Translations: [Pain in unspecified lower leg] 19-22-9369KvsuoaptKdmxx connective tissue disease (11 sources)Disorder of rotator cuff; Translations: [Unspecified rotator cuff tear or rupture of right shoulder, not specified as traumatic]84-65-6351Yswordhr Other connective tissue disease (7 sources)Unspecified rotator cuff tear or rupture of right shoulder, not specified as traumatic; Translations: [Disorders of bursae and tendons in shoulder region, unspecified]Onset: 133198-63-3996EkkrqszoYbttx connective tissue disease (2 sources)Bursitis of right hip; Translations: [Other bursitis of hip, right hip]27-56-7260PayzsqqrRlvpf connective tissue disease (20 sources)Right rotator cuff syndrome; Translations: [Unspecified rotator cuff tear or rupture of right shoulder, not specified as traumatic]10-03-2023 EpisodicOther connective tissue disease (16 sources)Swelling of lower limb; Translations: [Other specified soft tissue disorders]16-14-5279TdidtibmJwovh diseases of kidney and ureters (13 sources)Cyst of kidney; Translations: [Cyst of kidney, acquired]Onset: 462900-29-3206PptbnfvgQwppx endocrine disorders (4 sources)Disorder of endocrine system; Translations: [Endocrine disorder, unspecified]21-23-1149JczhlnqpCvxka eye disorders (7 sources)Hypertropia of right eye; Translations: [Hypertropia]EpisodicOther eye disorders (20 sources)Pain in eye; Translations: [Ocular pain, unspecified eye]01-24-2023 EpisodicOther female genital disorders (2 sources)Vaginal odor; Translations: [Other specified noninflammatory disorders of vagina]95-35-1480WhunrutdFmlrx female genital disorders (2 sources)Vaginal discharge; Translations: [Other specified noninflammatory disorders of vagina]25-71-1768YtemrruvDuopb female genital disorders (2 sources)Vaginal irritation; Translations: [Other specified noninflammatory disorders of vagina]21-63-3239EjacidcaPlttn gastrointestinal disorders (2 sources)Irritable bowel syndrome; Translations: [Irritable bowel syndrome without diarrhea]49-65-6341IladbrfAebrm gastrointestinal disorders (20 sources)Irritable bowel syndrome characterized by constipation; Translations: [Irritable bowel syndrome with constipation]Onset: 01-24-2024 57-83-1425OnmobnwVhmqz gastrointestinal disorders (2 sources)Irritable bowel syndrome with constipationChronicOther gastrointestinal disorders (8 sources)Constipation - functional; Translations: [Other constipation]Episodic Other gastrointestinal disorders (8 sources)Swollen abdomen; Translations: [Abdominal distension (gaseous)] EpisodicOther gastrointestinal disorders (7 sources)History of gastritis; Translations: [Personal history of other diseases of digestive system]EpisodicOther gastrointestinal disorders (20 sources)Constipation; Translations: [Constipation, unspecified]10-03-2023 EpisodicOther gastrointestinal disorders (1 source)Abdominal distension (gaseous)EpisodicOther gastrointestinal disorders (1 source)Constipation, unspecifiedEpisodicOther gastrointestinal disorders (20 sources)Abdominal bloating; Translations: [Abdominal distension (gaseous)] 93-55-5729ExoviypbVuvlc inflammatory condition of skin (2 sources)Rosacea; Translations: [Rosacea, unspecified]16-02-0712DtrbinfKoujq liver diseases (15 sources)Large liver; Translations: [Hepatomegaly, not elsewhere classified] Onset: 131914-55-7935LauzerkfDdtxh lower respiratory disease (20 sources)Dyspnea; Translations: [Shortness of breath]19-79-2768PazidfbfQbyav lower respiratory disease (4 sources)Dyspnea on exertion; Translations: [Shortness of breath]10-09-2024 EpisodicOther lower respiratory disease (6 sources)Snoring; Translations: [Snoring]45-15-4183VjjqwlgwJycup nervous system disorders (7 sources)Benign intracranial hypertension; Translations: [Benign intracranial hypertension]ChronicOther nervous system disorders (1 source)Other chronic pain; Translations: [OTHER CHRONIC PAIN]Onset: 72-98-7021FeapbkbUzfaq non-traumatic joint disorders (20 sources)Shoulder pain; Translations: [Pain in unspecified shoulder] 57-78-7213DfbjazhzHphaz non-traumatic joint disorders (20 sources)Shoulder joint pain; Translations: [Pain in right shoulder] 24-56-0098TsoodrolGxqvg non-traumatic joint disorders (16 sources)Pain in left knee; Translations: [Left knee pain]Onset: 01-02-2025 47-34-6441TnmtlvywCzopn nutritional; endocrine; and metabolic disorders (18 sources)Body mass index 40+ - severely obese; Translations: [Morbid obesity] 53-91-0026CnpvpcbWmvfk nutritional; endocrine; and metabolic disorders (1 source)Obesity, unspecified; Translations: [OBESITY UNSPECIFIED]Onset: 76-16-6303EjajrzwSvmss nutritional; endocrine; and metabolic disorders (20 sources)Hypomagnesemia; Translations: [Hypomagnesemia]35-36-2376KrkvhzdHltuw nutritional; endocrine; and metabolic disorders (6 sources)Severe obesity; Translations: [Class 3 severe obesity without serious comorbidity with body mass index (BMI) of 40.0 to 44.9 in adult, unspecified obesity type (CMS/HCC)]97-67-1416KoqotrvMtvhg nutritional; endocrine; and metabolic disorders (2 sources)Hypoalbuminemia; Translations: [Other disorders of plasma-protein metabolism, not elsewhere classified]29-86-1197IokeauaUppjz nutritional; endocrine; and metabolic disorders (2 sources)Hypoproteinemia; Translations: [Other disorders of glycoprotein metabolism]15-01-4528AkszhqcHwvyz nutritional; endocrine; and metabolic disorders (7 sources)History of Graves' disease; Translations: [Personal history of other endocrine, metabolic, and immunity disorders]EpisodicOther screening for suspected conditions (not mental disorders or infectious disease) (5 sources)Cortisol level abnormal; Translations: [Other specified abnormal findings of blood chemistry]Onset: 736169-71-6984YctqsxsbKesju skin disorders (1 source)Rash and other nonspecific skin eruptionEpisodicOther upper respiratory infections (10 sources)Acute pharyngitis, unspecified; Translations: [Streptococcal pharyngitis]EpisodicPhlebitis; thrombophlebitis and thromboembolism (20 sources)Phlebitis; Translations: [Phlebitis and thrombophlebitis of unspecified site]25-43-2907RwznypnfMjsqtepts heart disease (20 sources)Pulmonary hypertension; Translations: [Pulmonary hypertension, unspecified]Onset: 919541-89-3796NbymhjvYqezwdaq codes; unclassified (20 sources)Chronic pain; Translations: [Other chronic pain]Onset: 01-18-2014 36-50-0601TthegjtWficksfa codes; unclassified (20 sources)Sleep apnea; Translations: [Sleep apnea, unspecified]11-29-2024 ChronicResidual codes; unclassified (20 sources)Hypoxia; 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]88-90-8948DoldyvxVssqojll codes; unclassified (2 sources)Obstructive sleep apnea syndrome; Translations: [Obstructive sleep apnea (adult) (pediatric)]47-51-3458QxndplfNgenyskm codes; unclassified (1 source)Sleep apnea, unspecified; Translations: [Sleep apnea, unspecified] Onset: 83-65-3118VfnhaunPkppkxwu codes; unclassified (20 sources)Peripheral edema; Translations: [Edema, unspecified]11-19-2019 EpisodicResidual codes; unclassified (4 sources)Edema of lower extremity; Translations: [Localized edema]10-09-2024 EpisodicResidual codes; unclassified (12 sources)Bilateral lower limb edema; Translations: [Localized edema] 23-27-5632FlffgqetNbevtjhn codes; unclassified (20 sources)Insomnia; Translations: [Insomnia, unspecified]44-39-0382Skxjhngh Residual codes; unclassified (2 sources)Edema, generalized; Translations: [Generalized edema]12-06-2024 EpisodicScreening and history of mental health and substance abuse codes (14 sources)Ex-smoker; Translations: [Personal history of tobacco use]Episodic Comment on above:quit 01/28/22;Skin and subcutaneous tissue infections (2 sources)Cellulitis of right lower limb; Translations: [Cellulitis of right lower limb]21-24-8792OdyprxnuSsissfakgkk; intervertebral disc disorders; other back problems (20 sources)Solitary sacroiliitis; Translations: [Sacroiliitis, not elsewhere classified]Onset: 86-21-7276PyvujtlCkolkbe and strains (20 sources)Sprain of knee; Translations: [Sprain of unspecified site of right knee, initial encounter]42-08-0064VvmhkbfxMhamfhb disorders (20 sources)Hypothyroidism; Translations: [Unspecified acquired hypothyroidism] Onset: 278845-51-4057WlwklxhFkjcjtndqgsv (1 source)LOW BACK PAIN, UNSPECIFIED; Translations: [LOW BACK PAIN, UNSPECIFIED] Onset: 27-97-9839Bnocjnkjnpld (2 sources)Z68.42 - Body mass index [BMI] 45.0-49.9, adult Past or Other Problems Problem ClassificationProblemDateDocumented DateEpisodic/ChronicDeficiency and other anemia (20 sources)Iron deficiency anemia; Translations: [Iron deficiency anemia, unspecified]Onset: 596463-18-1020LdkaqosoAwbnjxnpom and other anemia (1 source)Other iron deficiency anemias; Translations: [Other iron deficiency anemias]Onset: 97-58-6791HaxfemylHkaeslox mellitus without complication (2 sources)Prediabetes; Translations: [Prediabetes]68-35-5870Bmiwyqug Genitourinary symptoms and ill-defined conditions (20 sources)Retention of urine; Translations: [Retention of urine, unspecified] Onset: 651678-20-2844LjkzyosrUiapooi and fatigue (1 source)Other fatigue; Translations: [Other fatigue]Onset: 21-88-5389Jsbyawsa Other connective tissue disease (20 sources)Fibromyalgia; Translations: [Fibromyalgia]Onset: 01-24-2024 19-26-6443EjibrdfjIwppa connective tissue disease (4 sources)Other muscle spasm; Translations: [OTHER MUSCLE SPASM]Onset: 58-92-2934VfckhwezMwpsv hematologic conditions (20 sources)History of anemia; Translations: [Personal history of diseases of the blood and blood-forming organs and certain disorders involving the immune mechanism]Onset: 498672-07-0990OsrpxljgXotuw lower respiratory disease (1 source)Shortness of breath; Translations: [Shortness of breath]Onset: 76-17-4732YppeqznsDwrgh skin disorders (20 sources)Non-scarring alopecia; Translations: [Nonscarring hair loss, unspecified]Onset: 885006-21-5210KulxkvfsXmqzoxmt codes; unclassified (20 sources)History of supracervical hysterectomy; Translations: [Acquired absence of uterus with remaining cervical stump]Onset: EpisodicResidual codes; unclassified (1 source)Localized edema; Translations: [Localized edema]Onset: 10-09-2024 EpisodicResidual codes; unclassified (1 source)Asymptomatic menopausal state; Translations: [Asymptomatic menopausal state]Onset: 67-79-5056NhlaeqozCriasodwnbl; intervertebral disc disorders; other back problems (20 sources)Neck pain; Translations: [Backache]Onset: EpisodicUnclassified (2 sources)Cough R05.9Viral infection (2 sources)COVID-19 Results Test NameValueInterpretationReference RangeFacilityMR shoulder RT wo conon 17-47-9909UX shoulder RT wo [facility] [place] [address] MRI Report Signed Patient: Lupe Pickard MR#: [id number] : 1975 Acct:[id number] Age/Sex: 49 / F ADM Date: 02/19/25 Loc: [facility] Room: Type: [facility] Attending Dr: Chaz Carrillo DO Copies to: Chaz Carrillo DO Ordering Provider: Chaz Carrillo DO Date of Service: 02/19/25 MR/MR shoulder RT wo con: Eval for tendon tear EXAMINATION: MRI OF THE RIGHT SHOULDER CLINICAL HISTORY: Right shoulder pain with limited range of motion for 9 months. COMPARISON: Right shoulder 01/02/2025 TECHNIQUE: Multiecho, multiplanar imaging was performed with use of an extremity coil. No contrast was administered. FINDINGS: Examination is suboptimal due to respiratory motion and body habitus. Bones/Joints: Minimal joint fluid. Subacromial/subdeltoid bursitis. Inferior glenohumeral ligament appears unremarkable. Degenerative spurring is seen involving the AC and glenohumeral joints with irregularity along the lateral head. No significant bone marrow edema or fracture. Labrum: No definitive tear. Biceps tendon: Seen within the bicipital groove a small amount of fluid surrounding it. No abnormal signal is seen within the tendon. Supraspinatus: Tendinosis with partial thickness tear joint side approximately 7 mm from the greater tubercle. Infraspinatus: Tendinosis with partial-thickness tear joint side also 7 mm from the greater tubercle. Teres Minor: Normal Subscapularis: Tendinosis with partial-thickness tear MR/MR shoulder RT wo con IMPRESSION: DEGENERATIVE CHANGES INVOLVING THE AC AND GLENOHUMERAL JOINTS WITH SMALL AMOUNT OF JOINT FLUID. NO FRACTURE. PARTIAL-THICKNESS TEARS INVOLVING THE SUPRASPINATUS, INFRASPINATUS AND SUBSCAPULARIS WITH ASSOCIATED TENDINOSIS WELL SUBACROMIAL/SUBDELTOID BURSITIS. Impression dictated by: Bob Neff Jr., DJayceeOJaycee 02/19/2025 12:48 PM Dictation Location: [place] [address] Transcribed By: [facility] 02/19/25 1248 Dictated By: Bob Neff Jr, DO 02/19/25 1240 Signed By: 02/19/25 1248[facility] GroupMagnetic resonance imaging reportOrdered By: Bob Neff on 37-49-1175Xuttl reportSELECT [facility] [place] [address] [place] [address] MRI Report Signed Patient: Lupe Pickard MR#: [id number] : 1975 Acct:[id number] Age/Sex: 49 / F ADM Date: 5 Loc: [facility] Room: Type: [facility] Attending Dr: Chaz Carrillo DO Copies to: Chaz Carrillo DO~ Ordering Provider: Chaz Carrillo DO Date of Service: 02/19/25 MR/MR shoulder RT wo con: Eval for tendon tear EXAMINATION: MRI OF THE RIGHT SHOULDER CLINICAL HISTORY: Right shoulder pain with limited range of motion for 9 months. COMPARISON: Right shoulder 01/02/2025 TECHNIQUE: Multiecho, multiplanar imaging was performed with use of an extremity coil. No contrast was administered. FINDINGS: Examination is suboptimal due to respiratory motion and body habitus. Bones/Joints: Minimal joint fluid. Subacromial/subdeltoid bursitis. Inferior glenohumeral ligament appears unremarkable. Degenerative spurring is seen involving the AC and glenohumeral joints with irregularity along the lateral head. No significant bone marrow edema or fracture. Labrum: No definitive tear. Biceps tendon: Seen within the bicipital groove a small amount of fluid surrounding it. No abnormalsignal is seen within the tendon. Supraspinatus: Tendinosis with partial thickness tear joint side approximately 7mm from the greatertubercle. Infraspinatus: Tendinosis with partial-thickness tear joint side also 7 mm from the greater tubercle. Teres Minor: Normal Subscapularis: Tendinosis with partial-thickness tear MR/MR shoulder RT wo con IMPRESSION: DEGENERATIVE CHANGES INVOLVING THE AC AND GLENOHUMERAL JOINTS WITH SMALL AMOUNT OF JOINT FLUID. NO FRACTURE. PARTIAL-THICKNESS TEARS INVOLVING THE SUPRASPINATUS, INFRASPINATUS AND SUBSCAPULARIS WITH ASSOCIATED TENDINOSIS WELL SUBACROMIAL/SUBDELTOID BURSITIS. Impression dictated by: Bob Neff Jr., DJayceeOJaycee 02/19/2025 12:48 PM Dictation Location: [place] [address] Transcribed By: [facility] 02/19/25 1248 Dictated By: Bob Neff Jr, DO 02/19/25 1240 Signed By: 02/19/25 1248 [facility] 81-49-4992JC screening mammo BI w/[facility] [address] [place] [address] Mammography Report Signed Patient: Lupe Pickard MR#: [id number] : 1975 Acct:[id number] Age/Sex: 49 / F Adm Date: 02/11/25 Loc: [place] Room: Type: [facility] CLI Attending Dr: Referral Self Ordering Provider: SELF,REFERRAL Date of Service: 02/11/25 Procedure(s): MM screening mammo BI w/CAD Accession Number(s): ([id number]) MM/MM screening mammo BI w/CAD: SCREENING Copies to: Melissa Coon MD SELF,REFERRAL CLINICAL DATA: Screening for malignancy. [...] Perez M.D. 02/12/2025 9:55 AM Dictation Location: [facility] Dictated By: Larry Perez MD 02/12/25 0928 Signed By: 02/12/25 0955[facility] GroupLaboratory - Microbiology and Antimicrobial susceptibilityon 02-01-2025. vaginae DNA CESAR+probe Ql (Vag fld) Low - 0ScoreNOMS HealthcareBacterial vaginosis associated bacterium 2 DNA CESAR+probe Ql (Vag fld)Low - 0ScoreNOMS HealthcareC. albicans DNA CESAR+probe Ql (Vag fld)NegativeNegativeNOMS HealthcareC. glabrata DNA CESAR+probe Ql (Vag fld) NegativeNegativeNOMS HealthcareC. trachomatis DNA CESAR+probe Ql (Unsp spec) NegativeNegativeNOMS HealthcareM. genitalium DNA CESAR+probe Ql (Unsp spec) NegativeNegativeNOMS HealthcareM. hominis DNA CESAR+probe Ql (Unsp spec)Negative NegativeNOMS HealthcareMegasphaera sp type 1 DNA CESAR+probe Ql (Vag fld)Low - 0 ScoreNOAR HealthcareComment on above:Calculate total score by adding the 3 individual bacterial vaginosis (BV) marker scores together. Total score is interpreted as follows: Total score 0-1: Indicates the absence of BV. Total score 2: Indeterminate for BV. Additional clinical data should be evaluated to establish a diagnosis. Total score 3-6: Indicates the presence of BV. N. gonorrhoeae DNA CESAR+probe Ql (Vag fld)NegativeNegativeNOMS HealthcareT. vaginalis DNA CESAR+probe Ql (Vag fld)NegativeNegativeNOScotland County Memorial HospitalUreaplasma sp DNA CESAR+probe Ql (Unsp spec)NegativeNegativeNOScotland County Memorial HospitalNo Panel Information on 43-69-4966Fqgj(s) 395434- Atopobium vaginae; 451891- BVAB 2; 119682- Megasphaera 1 was developed and its performance characteristics determined by [employer]. It has not been cleared or approved by the Food and Drug Administration. Test(s) 685961-Zavjjwy albicans, CESAR; 620049-Bufdjxm glabrata, CESAR was developed and its performance characteristics determined by [employer]. It has not been cleared or approved by the Food and Drug Administration. Performed at: - [address] [id number] Maintenance Manager: Roger Kenny MD, Phone: [phone] Community HospitalTest(s) 605909-Bhgqehzapu hominis CESAR; 264461-Xyfiswyhsu spp CESAR was developed and its performance characteristics determined by [employer]. It has not been cleared or approved by the Food and Drug Administration. Performed at: - [address] [id number] Maintenance Manager: Roger Kenny MD, Phone: [phone] Community Hospital Laboratory - Cytologyon 44-99-7194Wlgmtqhwru Cyto stain Nom (Cvx/Vag) [ID] CommentNOScotland County Memorial HospitalComment on above:Keisha Olivo [employer] Legal Counsel (ASCP)Cytology report Cyto stain Doc (Cvx/Vag)CommentUniversity HospitalComment on above:NEGATIVE FOR INTRAEPITHELIAL LESION OR MALIGNANCY.Cytology report Cyto stain.thin prep Doc (Cvx/Vag)CommentUniversity HospitalComment on above:This liquid based ThinPrep(R) pap test was screened with the use of an image guided system. Statement of adequacy Cyto stain (Cvx/Vag) [Interp]CommentNOAR HealthcareComment on above:Satisfactory for evaluation. No endocervical component is identified. Laboratory - Microbiology and Antimicrobial susceptibilityon 69-84-4189EHN 16+18+31+33+35+39+45+51+52+56+58+59+66+68 DNA Probe+sig amp Ql (Cvx)Negative NegativeNOAR HealthcareComment on above:This nucleic acid amplification test detects fourteen high-risk HPV types (16,18,31,33,35,39,45,51,52,56,58,59,66,68) without differentiation. Microscopic observation Other stain Nom (Unsp spec).NOMS HealthcareLaboratory - Miscellaneous testson 44-86-1535Ayjnpkx comment (Unsp spec) [Interp]CommentNOAR HealthcareComment on above:The Pap smear is a screening test designed to aid in the detection of premalignant and malignant conditions of the uterine cervix. It is not a diagnostic procedure and should not be used as the sole means of detecting cervical cancer. Both false-positive and false-negative reports do occur. No Panel Informationon 00-70-5696Dskxipjnz ICD code [Identifier]CommentNOScotland County Memorial HospitalComment on above:Z01.419 Z12.4 Performed at: 01 - [facility] [id number] Maintenance Manager: Laila Connelly MD, Phone: [phone] Performed at: 02 - [facility] [address] [id number] Maintenance Manager: Laila Connelly MD, Phone: [phone] Specimen Comment: No. of containers..01 ThinPrep VialLABCORPNOHermann [facility] Hospital knee LT wo conon 41-37-8837DT knee LT wo [facility] Main [address] [address] MRI Report Signed Patient: Lupe Pickard MR#: [id number] : 1975 Acct:[id number] Age/Sex: 49 / F ADM Date: 01/25/25 Loc: [facility] Room: Type: REG CLI Attending Dr: Melissa Benz II, MD [...] Gresham M.D. 01/25/2025 1:28 PM Dictation Location: [place] [address] Transcribed By: [facility] 01/25/25 1328 Dictated By: Rao Gresham DO 01/25/25 1320 Signed By: 01/25/[address] [place] [address] resonance imaging reportOrdered By: Rao Gresham on 43-58-9166Isqjt reportSELECT [facility] [place] [address] [place] [address] MRI Report Signed Patient: Lupe Pickard MR#: [id number] : 1975 Acct:[id number] Age/Sex: 49 / F ADM Date: 5 [facility] Type: [facility] CLI Attending Dr: Melissa Benz II, MD [...] Gresham M.D. 01/25/2025 1:28 PM Dictation Location: RADIO-PC-16 Transcribed By: [facility] 01/25/25 1328 Dictated By: Rao Gresham DO 01/25/25 1320 Signed By: 01/25/25 1328 [facility] HospitalX-ray reportOrdered By: Rao Gresham on 94-12-5733Azogg reportSELECT [facility] [address] [place] [address] XRay Report Signed Patient: Lupe Pickard MR#: [id number] : 1975 Acct:[id number] Age/Sex: 49 / F ADM Date: 5 Loc: [facility] Room: Type: [facility] Attending Dr: Melissa Benz II, MD Copies to: Melissa Benz MD~ Ordering Provider: Melissa Bnez MD Date of Service: 01/08/25 XR/XR knee [...] 8:11 PM Dictation Location: RADIO-PC-20 Transcribed By: [facility] 01/08/252010 Dictated By: Rao Gresham DO 01/08/252006 Signed By: 01/08/252010 [facility] [address] [place] [address] XRay Report Signed Patient: Lupe Pickard MR#: [id number] : 1975 Acct:[id number] Age/Sex: 49 / F ADM Date: 5 Loc: [facility] Room: Type: [facility] CLI Attending Dr: Melissa Benz II, MD [...] Gresham M.D. 01/08/2025 8:07 PM Dictation Location: [place] [address] Transcribed By: [facility] 01/08/252006 Dictated By: Rao Gresham DO 01/08/252003 Signed By: 01/08/252006 [facility] HospitalXR knee LT 4V*on 27-32-6129FA knee LT 4V* [facility] [address] [place] [address] XRay Report Signed Patient: Lupe Pickard MR#: [id number] : 1975 Acct:[id number] Age/Sex: 49 / F ADM Date: 01/08/25 Loc: [facility] Room: Type: [facility] CLI Attending Dr: Melissa Benz II, MD [...] By: Rao Gresham DO 01/08/252006 Signed By: 01/08/252010[facility] Physician GroupXR pelvis 1-2Von 63-58-0485SL pelvis 1-2VSELECT [facility] [address] [place] [address] XRay Report Signed Patient: Lupe Pickard MR#: [id number] : 1975 Acct:[id number] Age/Sex: 49 / F ADM Date: 01/08/25 Loc: [facility] Room: Type: REG CLI Attending Dr: Melissa Benz II, MD [...] By: Rao Gresham DO 01/08/252003 Signed By: 01/08/[address] [place] [address] Physician GroupX-ray reportOrdered By: Bob Neff on 00-82-0023Bsvpg [facility] Main [address] [address] XRay Report Signed Patient: Lupe Pickard MR#: [id number] : 1975 Acct:[id number] Age/Sex: 49 / F ADM Date: 5 Loc: ER Room: Type: [facility] ER Attending Dr: Copies to: Javad Lozoya APRN~ Ordering Provider: Javad Lozoya APRN Date of Service: 01/02/25 XR/XR knee LT 4V*: Extremity Injury, Lower ([id number]) XR/XR shoulder RT min 2V*: Extremity Injury, [...] Jr., D.O. 01/02/2025 12:14 PM Dictation Location: [place] [address] Transcribed By: [facility] 01/02/25 1214 Dictated By: Bob Neff Jr, DO 01/02/25 1213 Signed By: 01/02/25 1214 [facility] HospitalXR knee LT 4V*on 63-17-8074MK knee LT 4V* [facility] [address] XRay Report Signed Patient: Lupe Pickard MR#: [id number] : 1975 Acct:[id number] Age/Sex: 49 / F ADM Date: 01/02/25 Loc: ER Room: Type: [facility] ER Attending Dr: Copies to: Javad Lozoya APRN Ordering Provider: Javad Lozoya APRN Date of Service: 01/02/25 XR/XR knee LT 4V*: Extremity Injury, Lower ([id number]) XR/XR shoulder RT min 2V*: Extremity Injury, [...] PROCESS. Impression dictated by: Bob Neff Jr., Jose 01/02/2025 12:14 PM Dictation Location: [place] [address] Transcribed By: [facility] 01/02/25 1214 Dictated By: Bob Neff Jr, DO 01/02/25 1213 Signed By: 01/02/25 1214[facility] Phys[facility] HospitalCT ABDOMEN PELVIS W IV CONTRAST on 94-30-1555DI ABDOMEN PELVIS W IV CONTRASTEXAM: CT ABDOMEN PELVIS W IV CONTRAST History: [...] acute abdominopelvic process. Hepatomegaly. ELECTRONICALLY SIGNED BY: Sandrine PereiramalNot KtxbubfwoQ0J with Estimated Average Gluon 71-66-4868Qxzpgri [Mass/Vol]117 mg/dLGolisano [facility]'s Hospital of [facility] Physician GroupComment on above:Result Comment: PERFORMED BY: [address] [place] [address] PATHOLOGIST SEASONER MARIUM AVALOS M.D.Performed By: #### DOMINIC #### [facility] [address] [place] [address] USAANA Antinuclear Antibodieson 48-01-5189Jqaqsgwnvuf Abs, IFANegativeNormal.The [facility] Physician GroupComment on above:Result Comment: Negative <1:80 Borderline 1:80 Positive >1:80 ICAP nomenclature: AC-0 For more information about Hep-2 cell patterns use ANApatterns.org, the official website for the International Consensus on Antinuclear Antibody (WILL) Patterns (ICAP). Performed at: - [facility] [id number] Maintenance Manager: Ramirez Ca PhD, Phone: [phone] By: #### DOMINIC #### [place] [address] USAAlanine aminotransferase [Enzymatic activity/volume] in Serum or PlasmaOrdered By: OMID QUAN on 32-95-9780FOG [Catalytic activity/Vol]29 U/LNormal7-52[facility] HospitalComment on above: Performed By: #### DOMINIC #### [place] [address] USAAlbumin [Mass/volume] in Serum or Plasma by Bromocresol green (BCG) dye binding methoOrdered By: OMID QUAN on 84-76-5402Sztfciu BCG dye [Mass/Vol]3.8 g/dL3.5-5.7FMercy Health Allen HospitalAlkaline phosphatase [Enzymatic activity/volume] in Serum or PlasmaOrdered By: OMID QUAN on 64-01-7617AOC [Catalytic activity/Vol]56 U/AHpdmhv11-746SomknjkirGood Samaritan HospitalComment on above:Performed By: #### DOMINIC #### [place] [address] USAAppearance of UrineOrdered By: OMID QUAN on 29-50-0461Ussqkewkpy (U)ClearNormalCFlower HospitalComment on above:Order Comment: Name Collection Type:: Clean-Voided MidstreamPerformed By: #### LH, ESTRADIOL #### [facility] ,Aspartate aminotransferase [Enzymatic activity/volume] in Serum or Plasma Ordered By: OMID QUAN on 71-32-5763RFP [Catalytic activity/Vol]20 U/LNormal 13-39[facility] HospitalComment on above:Performed By: #### DOMINIC #### [facility] [address] [place] [address] USABacteria [Presence] in Urine by AutomatedOrdered By: OMID QUAN on 47-63-2769Yhrclgys Auto Ql (U)None seen [HPF]None Seen [facility] HospitalBilirubin Test strip Ql (U)Ordered By: OMID QUAN on 02-52-0507Udwfjtsxy Ql (U)NegativeNegativeGood Samaritan HospitalBilirubin.total [Mass/volume] in Serum or PlasmaOrdered By: OMID QUAN on 70-33-3606Vyyfaqoze [Mass/Vol]0.4 mg/dLNormal0.3-1.0[facility] HospitalComment on above:Performed By: #### DOMINIC #### [facility] [address] [place] [address] USABlood estimated average glucose determination by estimation from glycated hemoglobinOrdered By: OMID QUAN on 12-07-2024 Average glucose Estimated from glycated hemoglobin (Bld) [Mass/Vol]117 mg/dL [facility] HospitalC reactive protein [Mass/volume] in Serum or Plasma by High sensitivity methodOrdered By: OMID QUAN on 88-26-0347EBU High sensitivity method [Mass/Vol]15.7 mg/LHigh0.0-0.9[facility] HospitalComment on above:Cardiovascular Risk Classification (AHA/CDC)hsCRP < 1.0 mg/l low relative risk for CVDhsCRP 1.0-3.0 mg/l average relative risk for CVDhsCRP > 3.0 mg/l high relative risk for CVDhsCRP > 7.5 mg/l active inflammation*Two results two weeks apart and averaged provide a morestable estimate of hsCRP level.*hsCRP levels > 7.5 mg/l may suggest infection that canlimit the use of this marker forestimation of CVD risk.CRP High sensitivity method [Mass/Vol]on 18-02-9880MEFU SENSITIVE CRP15.7 mg/LHigh0.0 - 0.9 mg/LNOMS HealthcareComment on above:Cardiovascular Risk Classification (AHA/CDC) hsCRP < 1.0 mg/l [...] CVD risk. Interpretation and review of laboratory resultsAbnormalNOMS HealthcareNOMS HealthcareCalcium [Mass/volume] in Serum or PlasmaOrdered By: OMID QUAN on 40-40-1049Ofulluq [Mass/Vol]9.0 mg/dLNormal8.6-10.3FMercy Health Allen HospitalComment on above:Performed By: #### DOMINIC #### [facility] [address] [place] [address] USACarbon dioxide, total [Moles/volume] in Serum or Plasma Ordered By: OMID QUAN on 87-20-8866PZ6 [Moles/Vol]31.0 mmol/LNormal 21.0-31.0[facility] HospitalComment on above:Performed By: #### DOMINIC #### [facility] [address] [place] [address] USAChloride [Moles/volume] in Serum or PlasmaOrdered By: OMID QUAN on 66-70-7055Mrpddkhi [Moles/Vol]101 mmol/CUmfmqm23-853NyemuepygGood Samaritan HospitalComment on above:Performed By: #### DOMINIC #### [facility] [address] [place] [address] USAColor of Urine by AutoOrdered By: OMID QUAN on 75-28-3888Hrvdj (U)Light-yellowNormalYMercy Health Tiffin Hospital Comment on above:Order Comment: Name Collection Type:: Clean-Voided Midstream Performed By: #### LH, ESTRADIOL #### [facility] ,Comprehensive Metabolic Panelon 99-26-3846Kovmjsc [Mass/Vol]3.8 g/dLNormal 3.5-5.7The [facility] Physician GroupComment on above:Performed By: #### DOMINIC #### [facility] [address] [place] [address] USAGFR/1.73 sq M.predicted MDRD (S/P/Bld) [Vol rate/Area] mL/min/{1.73_m2}NormalThe [facility] Health Physician GroupComment on above:Performed By: #### DOMINIC #### [facility] [address] [place] [address] USAComprehensive metabolic panelon 30-20-3913Tuzbjfq [Mass/Vol]3.8 g/dL3.5 - 5.7 g/dLNOAR HealthcareAlbumin/Globulin [Mass ratio]1.4 {ratio}NOM HealthcareALP [Catalytic activity/Vol]56 U/L34 - 104 U/LNOMS HealthcareALT [Catalytic activity/Vol]29 U/L7 - 52 U/LNOMS HealthcareAnion gap [Moles/Vol]11.2 mmol/L6.0 - 15.0NOMS HealthcareAST [Catalytic activity/Vol]20 U/L13 - 39 U/LNOMS HealthcareBilirubin [Mass/Vol]0.4 mg/dL0.3 - 1.0 mg/dLNOAR HealthcareCalcium [Mass/Vol]9 mg/dL8.6 - 10.3 mg/dLNOAR HealthcareChloride [Moles/Vol]101 mmol/L98 - 107 mmol/LNOMS HealthcareCO2 [Moles/Vol]31 mmol/L21.0 - 31.0 mmol/LNOMS HealthcareCreatinine (U) [Mass/Vol]0.5 mg/dLLow0.60 - 1.20 mg/dLNOAR HealthcareESTIMATED GFRNOMS HealthcareGlobulin (S) [Mass/Vol]2.7 g/dL NOM HealthcareGlucose [Mass/Vol]109 mg/vGBkrc67 - 100 mg/dLNOAR Healthcare Comment on above:Random Glucose Reference Range is dependent on time and content of last meal. Glucose of more than 200 mg/dL in a nonstressed, ambulatory subject supports the diagnosis of Diabetes Mellitus. ADA recommended reference range Interpretation and review of laboratory resultsAbnormalNOMS HealthcarePotassium [Moles/Vol]4.2 mmol/L3.5 - 5.1 mmol/LNOMS HealthcareProtein [Mass/Vol]6.5 g/dL 6.4 - 8.9 g/dLNOMS HealthcareSodium [Moles/Vol]139 mmol/L136 - 145 mmol/LNOMS HealthcareUrea nitrogen [Mass/Vol]12 mg/dL7 - 25 mg/dLNOMS HealthcareCreatinine [Mass/volume] in Serum or PlasmaOrdered By: OMID QUAN on 12-07-2024 Creatinine [Mass/Vol]0.50 mg/dLLow0.60-1.20[facility] Comment on above:Performed By: #### DOMINIC #### [facility] [address] [place] [address] USACreatinine [Mass/volume] in UrineOrdered By: OMID QUAN on 40-44-9969Gxirpyjovp (U) [Mass/Vol]75.00 mg/dLGood Samaritan HospitalComment on above:No reference range establishedDipstick and Microscopicon 13-09-2049Adkliyos,UrineNone SeenNormalNone SeenOrlando Health Horizon West Hospital Physician GroupComment on above:Order Comment: Name Collection Type:: Clean- Voided MidstreamPerformed By: #### LH, ESTRADIOL #### [facility] ,Bilirubin,UrineNegativeNormalNegativeOrlando Health Horizon West Hospital Physician GroupComment on above:Order Comment: Name Collection Type:: Clean-Voided MidstreamPerformed By: #### LH, ESTRADIOL #### [facility] ,Glucose Ql (U)NormalNormalNormRegional Medical Centere [facility] Physician GroupComment on above: Order Comment: Name Collection Type:: Clean-Voided MidstreamPerformed By: #### LH, ESTRADIOL #### [facility] ,Hyaline Casts,UrineNoneNormal0-8The [facility] Physician GroupComment on above: Order Comment: Name Collection Type:: Clean-Voided MidstreamPerformed By: #### LH, ESTRADIOL #### [facility] ,Mucus,UrineRareNormalThe [facility] Health Physician GroupComment on above:Order Comment: Name Collection Type:: Clean-Voided MidstreamResult Comment: PERFORMED BY: [facility] [place] [address] PATHOLOGIST SEASONER MARIUM AVALOS M.D.Performed By: #### LH, ESTRADIOL #### [facility] ,Nitrite,UrineNegativeNormalNegativeThe [facility] Health Physician GroupComment on above:Order Comment: Name Collection Type:: Clean-Voided MidstreamPerformed By: #### LH, ESTRADIOL #### [facility] ,Occult Blood,UrineNegativeNormalNegativeOrlando Health [facility] Hospital Physician GroupComment on above:Order Comment: Name Collection Type:: Clean-Voided MidstreamPerformed By: #### LH, ESTRADIOL #### [facility] ,Protein,UrineNegativeNormalNegativeThe [facility] Physician GroupComment on above:Order Comment: Name Collection Type:: Clean-Voided MidstreamPerformed By: #### LH, ESTRADIOL #### [facility] ,RBC,Qijfq8-2Lvqdrb9-3Ycd [facility] Physician GroupComment on above:Order Comment: Name Collection Type:: Clean-Voided MidstreamPerformed By: #### LH, ESTRADIOL #### [facility] ,Specificy [place],Urine1.149Bxabdu3.001-1.030The [facility] Comment on above:Order Comment: Name Collection Type:: Clean-Voided Midstream Performed By: #### LH, ESTRADIOL #### [facility] ,Squamous Epithelial Cell,Mubqp9-3Tcslhz4-1Plc [facility] Physician GroupComment on above:Order Comment: Name Collection Type:: Clean-Voided MidstreamPerformed By: #### LH, ESTRADIOL #### [facility] ,Urobilinogen,UrineNormalNormalNormalThe [facility] Physician GroupComment on above:Order Comment: Name Collection Type:: Clean-Voided MidstreamPerformed By: #### LH, ESTRADIOL #### [facility] ,WBC,Kksxi6-8Tfllxl2-7Iei [facility] Physician GroupComment on above:Order Comment: Name Collection Type:: Clean-Voided MidstreamPerformed By: #### LH, ESTRADIOL #### [facility] ,ESR (Bld) [Velocity]on 21-42-5658Xzjhkrwmqolxfr and review of laboratory resultsAbnormalNOScotland County Memorial HospitalNOScotland County Memorial HospitalEpithelial cells.squamous [#/area] in Urine sediment by Automated countOrdered By: OMID QUAN on 12-07-2024 Epithelial cells.squamous Auto (Urine sed) [#/Area]1-2 [HPF]0-2FMercy Health Allen HospitalErythrocyte Sedimentation Rateon 55-18-4096CNI (Bld) [Velocity]22 mm/hHigh0-19The [facility] Physician GroupComment on above:Result Comment: PERFORMED BY: [place] [address] PATHOLOGIST SEASONER MARIUM AVALOS M.D.Performed By: #### DOMINIC #### [place] [address] USAErythrocyte sedimentation rate by Photometric method Ordered By: OMID QUAN on 71-14-3787PIH Photometric method (Bld) [Velocity] 22 mm/hrHigh0-19[facility] HospitalErythrocytes [#/area] in Urine sediment by Automated countOrdered By: OMID QUAN on 59-22-8524KPM Auto (Urine sed) [#/Area]1-2 [HPF]0-4FMercy Health Allen HospitalFree K+L LT Chains, Qn, Son 75-13-4109Wvix [place] Light Chains, S12.3 mg/LNormal3.3-19.4The [facility] Physician GroupComment on above:Performed By: #### DOMINIC #### [place] [address] USAFree Lambda Light Chains, S14.2 mg/LNormal5.7-26.3The [facility] Physician GroupComment on above:Performed By: #### DOMINIC #### [address] [place] [address] USAKappa/Lambda Ratio, S0.62Oabuty9.26-1.65The [facility] Physician GroupComment on above:Result Comment: Performed at: - [facility] [id number] Maintenance Manager: Ramirez Ca PhD, Phone: [phone] PERFORMED BY: [place] [address] PATHOLOGIST SEASONER MARIUM AVALOS M.D.Performed By: #### DOMINIC #### [place] [address] USAGlucose [Mass/volume] in Serum or PlasmaOrdered By: OMID QUAN on 23-47-2665Nlnbktl [Mass/Vol]109 mg/eCLkri28-753YznknosglGood Samaritan HospitalComment on above:ADA recommended reference rangeRandom Glucose Reference Range is dependent on time and content of last meal. Glucose of more than 200 mg/dL in a nonstressed, ambulatory subject supports the diagnosisof Diabetes Mellitus.Result Comment: Random Glucose Reference Range is dependent on time and content of last meal. Glucose of more than 200 mg/dL in a nonstressed, ambulatory subject supports the diagnosis of Diabetes Mellitus. ADA recommended reference rangePerformed By: #### DOMINIC #### [place] [id number] USAGlucose [Mass/volume] in Urine by Test stripOrdered By: OMID QUAN on 03-01-6600Sflupne Test strip (U) [Mass/Vol]Normal mg/dLNormal [facility] HospitalHemoglobin A1c/Hemoglobin.total in BloodOrdered By: OMID QUAN on 05-88-6098UxV5s (Bld) [Mass fraction]5.7 %High4.3-5.6 [facility] HospitalComment on above:Increased risk for diabetes: 5.7 - 6.4diabetes: >6.4glycemic control for adults with diabetes: <7.0Result Comment: Increased risk for diabetes: 5.7 - 6.4 diabetes: >6.4 glycemic control for adults with diabetes: <7.0Performed By: #### DOMINIC #### [facility] [address] [place] [address] USAHemoglobin Test strip Ql (U)Ordered By: OMID QUAN on 77-38-3474Mvjrjvfbhf Ql (U)NegativeNegSouthview Medical Center Hemoglobin a1c with eagon 34-59-2801Cszeotf [Mass/Vol]117 mg/dLUniversity Hospital HbA1c (Bld) [Mass fraction]5.7 %High4.3 - 5.6 %[facility] HealthcareComment on above: Increased risk for diabetes: 5.7 - 6.4 diabetes: >6.4 glycemic control for adults with diabetes: <7.0 Interpretation and review of laboratory resultsAbnoFroedtert HospitalHigh Sensitive CRPon 61-47-1136Mran Sensitive CRP15.7 mg/LHigh0.0-0.9 The [facility] Physician GroupComment on above:Result Comment: Cardiovascular Risk Classification (AHA/CDC) hsCRP < [...] for estimation of CVD risk. PERFORMED BY: [place] [address] PATHOLOGIST SEASONER MARIUM AVALOS M.D.Performed By: #### DOMINIC #### [facility] [address] [place] [address] USAHyaline casts [#/area] in Urine sediment by Automated countOrdered By: OMID QUAN on 67-79-9519Jnoteih casts Auto (Urine sed) [#/Area]None [LPF]0-8[facility]itan HospitalKetones [Presence] in Urine by Test stripOrdered By: OMID QUAN on 95-77-2138Zvconrg Ql (U) NegativeNormalNegSouthview Medical CenterComment on above:Order Comment: Name Collection Type:: Clean-Voided MidstreamPerformed By: #### LH, ESTRADIOL #### [facility] ,Leukocyte esterase [Presence] in Urine by Test stripOrdered By: OMID QUAN on 72-35-6411Akozeyyty esterase Test strip Ql (U)NegativeNormalNegativeGood Samaritan HospitalComment on above:Order Comment: Name Collection Type:: Clean-Voided MidstreamPerformed By: #### LH, ESTRADIOL #### [facility] ,Leukocytes [#/area] in Urine sediment by Automated countOrdered By: OMID QUAN on 14-45-6948MBE Auto (Urine sed) [#/Area]1-2 [HPF]0-4FMercy Health Allen HospitalMagnesiumon 32-47-0021Etphxhlmq [Mass/Vol]1.9 mg/dL1.9 - 2.7 mg/dL NOMS HealthcareMagnesium [Mass/volume] in Serum or PlasmaOrdered By: OMID QUAN on 47-91-2440Lkxqsqsss [Mass/Vol]1.9 mg/dLNormal1.9-2.7FMercy Health Allen HospitalComment on above:Result Comment: PERFORMED BY: [place] [address] PATHOLOGIST SEASONER MARIUM AVALOS M.D.Performed By: #### DOMINIC #### [place] [address] USAMicroAlb Creat Ratio,Uon 83-02-6401Jkvfeetrar, Urine (Random)75.00 mg/dLNormalThe [facility] Physician GroupComment on above:Result Comment: No reference range establishedPerformed By: #### DOMINIC #### [facility] [address] [place] [address] USAMicroalbumin/Creatinine RatioNot performedNormal0.0-30.0 The [facility] Physician GroupComment on above:Result Comment: PERFORMED BY: [place] [address] PATHOLOGIST SEASONER MARIUM AVALOS M.D.Performed By: #### DOMINIC #### [address] [place] [address] USAMicroalbumin [Mass/volume] in UrineOrdered By: OMID QUAN on 16-91-0621Brunwln DL <= 20 mg/L (U) [Mass/Vol]mg/dLNormal0.0-1.8 [facility] HospitalComment on above:Performed By: #### DOMINIC #### [facility] [address] [place] [id number] USAMicroalbumin/Creatinine ratio panel (U)on 12-07-2024 Albumin [Mass/Vol]mg/dL0.0 - 1.8 mg/dLNOAR HealthcareCreatinine spec 2 (U) [Mass/Vol]75 mg/dLNOAR HealthcareComment on above:No reference range established MICROALBUMIN/CREATININE RATIONot performed0.0 - 30.0 mg/gNOMS HealthcareNOMS HealthcareMucus [Presence] in Urine by AutomatedOrdered By: OMID QUAN on 62-36-7056Bbcup Auto Ql (U)Rare [LPF][facility]itan HospitalNitrite Test strip Ql (U)Ordered By: OMID QUAN on 09-30-1969Pquzvdc Ql (U)Negative NegativeGood Samaritan HospitalNo Panel Informationon 96-96-1278GKOS HealthcareNo Panel InformationOrdered By: OMID QUAN on 65-25-9540Tdhlfkrwa GFR (CKD-EPI)> 60.0 mL/MinGood Samaritan HospitalPharmacy Creatinine Clearance (ChemN/Chillicothe HospitalProtein Electrophoresis M-SpikeNot observed g/dLNot ObservedGood Samaritan HospitalProtein Electrophoresis NoteComment.[facility] HospitalComment on above: Protein electrophoresis scan will follow via computer,mail, or running rigger delivery. Potassium [Moles/volume] in Serum or PlasmaOrdered By: OMID QUAN on 02-94-5897Nvtzgfznq [Moles/Vol]4.2 mmol/LNormal3.5-5.1FMercy Health Allen HospitalComment on above:Performed By: #### DOMINIC #### [facility] [address] [place] [id number] USAProtein Electrophoresis, Serumon 12-07-2024 Cutvc-3-Ozixyneu4.2 g/dLNormal0.0-0.4The [facility] Physician GroupComment on above:Performed By: #### DOMINIC #### [facility] [address] [place] [address] CTRTekmf-4-Egcwxknv2.9 g/dLNormal0.4-1.0The [facility] Physician GroupComment on above:Performed By: #### DOMINIC #### [facility] [address] [place] [address] USABeta Globulin1.1 g/dLNormal0.7-1.3The [facility] Physician GroupComment on above:Performed By: #### DOMINIC #### [facility] [address] [place] [address] USAGamma Globulin0.9 g/dLNormal0.4-1.8The [facility] Physician GroupComment on above:Performed By: #### DOMINIC #### [place] [address] USAM-SpikeNot ObservedNormalNot ObservedThe [facility] Health Physician GroupComment on above:Performed By: #### DOMINIC #### [place] [address] USASPE-NoteCommentNormal.The [facility] Health Physician GroupComment on above:Result Comment: Protein electrophoresis scan will follow via computer, mail, or running rigger delivery.Performed By: #### DOMINIC #### [place] [address] USAProtein Test strip (U) [Mass/Vol]Ordered By: OMID QUAN on 83-84-9280Qvfblqc (U) [Mass/Vol]NegativeNegativeGood Samaritan HospitalProtein [Mass/volume] in Serum or PlasmaOrdered By: OMID QUAN on 90-65-1922Txppcuv [Mass/Vol]6.5 g/dLNormal6.4-8.9Good Samaritan HospitalComment on above:Performed By: #### DOMINIC #### [place] [address] USARheumatoid Factoron 25-82-0138Uukfemrxls Sqadfi90.4Normal <14.0The Novant Health Physician GroupComment on above:Result Comment: Performed at: - [facility] [address] [place], [place] [id number] Maintenance Manager: Ramirez Ca PhD, Phone: [phone] By: #### DOMINIC #### [place] [address] USASedimentation rate, automatedon 49-80-3520GIK (Bld) [Velocity]22 mm/hHigh0 - 19NOMS HealthcareSerum free kappa light chain measurementOrdered By: OMID QUAN on 05-88-5500Amnjlrqrujdxmo light chains.kappa.free (S) [Mass/Vol]12.3 mg/L3.3-19.4FProMedica Flower Hospitalerum globulin measurement (mass/volume)Ordered By: OMID QUNA on 70-67-1114Sirptwbk (S) [Mass/Vol]3.1 g/dLNormal2.2-3.9Good Samaritan HospitalComment on above:Performed By: #### DOMINIC #### [place] [address] USASerum globulin measurement by calculation (mass/volume) Ordered By: OMID QUAN on 30-57-8584Fylpbcqf (S) [Mass/Vol]2.7 g/dLNormal [facility] Samaritan HospitalComment on above:Performed By: #### DOMINIC #### [place] [address] USASerum homogeneous pattern antinuclear antibody (WILL) titer Ordered By: OMID QUAN on 80-85-4363Qlrdxgybjh nuclear Ab pattern (S) [Titer]N/AFProMedica Flower Hospitalerum immunoglobulin free kappa light chains/immunoglobulin free lambda light chainsOrdered By: OMID QUAN on 31-93-9191Asyarhlvvbhnra light chains.kappa.free/Immunoglobulin light chains.lambda.free (S) [Mass ratio]0.870.26-1.65Good Samaritan HospitalComment on above:Performed at: 3Jam - [facility] [address] [place], [place] [id number] Director: Ramirez Ca PhD, Phone: [phone] nuclear antibody titerOrdered By: OMID QUAN on 00-48-1004Zisdryw Ab (S) [Titer]Negative.Good Samaritan HospitalComment on above:Negative <1:80 Borderline 1:80 Positive >1:80ICAP nomenclature: AC-0For more information about Hep-2 cell patterns useANApatterns.org, the official website for theInternational Consensus on Antinuclear Antibody (WILL)Patterns (ICAP).Performed at: [place] [id number] Director: Ramirez Ca PhD, Phone: [phone] or plasma albumin measurement (mass/volume)Ordered By: OMID QUAN on 99-65-3769Uyobwrx [Mass/Vol]3.3 g/dLNormal2.9-4.4FMercy Health Allen HospitalComment on above:Performed By: #### DOMINIC #### [facility] [address] [place] [address] USASerum or plasma albumin/globulin mass ratioOrdered By: OMID QUAN on 41-32-1757Uhyfuuv/Globulin [Mass ratio]1.4 {ratio}Normal [facility] Samaritan HospitalComment on above:Performed By: #### DOMINIC #### [facility] [address] [place] [address] USAAlbumin/Globulin [Mass ratio]1.1 {ratio}Normal0.7-1.7 [facility] Samaritan HospitalComment on above:Performed By: #### DOMINIC #### [facility] [address] [place] [address] USASerum or plasma alpha 1 globulin measurement by electrophoresis (mass/volume)Ordered By: OMID QUAN on 58-67-8933Gsidu 1 globulin Elph [Mass/Vol]0.2 g/dL0.0-0.4FProMedica Flower Hospitalerum or plasma alpha 2 globulin measurement by electrophoresis (mass/volume)Ordered By: OMID QUAN on 12-10-1780Egvsa 2 globulin Elph [Mass/Vol]0.9 g/dL0.4-1.0 [facility] Cincinnatierum or plasma anion gap determinationOrdered By: OMID QUAN on 79-45-5890Hmrvi gap [Moles/Vol]11.2 mmol/LNormal6.0-15.0 [facility] Samaritan HospitalComment on above:Performed By: #### DOMINIC #### [facility] [address] [place] [address] USASerum or plasma beta globulin measurement by electrophoresis (mass/volume)Ordered By: OMID QUAN on 63-68-3527Knvh globulin Elph [Mass/Vol]1.1 g/dL0.7-1.3FProMedica Flower Hospitalerum or plasma gamma globulin measurement by electrophoresis (mass/volume)Ordered By: OMID QUAN on 95-38-0182Bfuya globulin Elph [Mass/Vol]0.9 g/dL0.4-1.8 [facility] Cincinnatierum or plasma immunoglobulin free lambda light chains measurement (mass/volume)Ordered By: OMID QUAN on 12-07-2024 Immunoglobulin light chains.lambda.free [Mass/Vol]14.2 mg/L5.7-26.3FProMedica Flower Hospitalerum or plasma rheumatoid factor measurement (units/volume)Ordered By: OMID QUAN on 21-34-0975Xqueruytrl factor Qn10.4 [IU]/mL<14.0Good Samaritan HospitalComment on above:Performed at: [facility] [place] [id number] Director: Ramirez Ca PhD, Phone: [phone] total protein measurementOrdered By: OMID QUAN on 73-37-6107Aihijhu [Mass/Vol]6.4 g/dLNormal6.0-8.5FMercy Health Allen HospitalComment on above:Performed By: #### DOMINIC #### [facility] [address] [place] [address] USASodium [Moles/volume] in Serum or PlasmaOrdered By: OMID QUAN on 21-03-1318Uidonz [Moles/Vol]139 mmol/CPpavnn423-032GlupfoikfGood Samaritan HospitalComment on above:Performed By: #### DOMINIC #### [facility] [address] [place] [address] USASpecific gravity Test strip (U) [Rel density]Ordered By: OMID QUAN on 03-01-5653Euacztev gravity (U) [Rel density]1.0231.001-1.030 Good Samaritan HospitalUrea nitrogen [Mass/volume] in Serum or Plasma Ordered By: OMID QUAN on 13-40-7436Cofw nitrogen [Mass/Vol]12 mg/dLNormal 12-21Good Samaritan HospitalComment on above:Performed By: #### DOMINIC #### [place] [address] USAUrine microalbumin/creatinine mass ratioOrdered By: OMID QUAN on 05-26-8183Avcjaaw/Creatinine DL <= 20 mg/L (U) [Mass ratio]TNP [facility] Samaritan HospitalComment on above:Test not performedUrobilinogen Test strip (U) [Mass/Vol]Ordered By: OMID QUAN on 01-08-8899Seswhpkwtyxl (U) [Mass/Vol]Normal mg/dLNormUpper Valley Medical CenterX-ray report Ordered By: Rizwana Thacker on 15-33-9787Eunvk reportSELECT [facility] [place] [address] [place] [address] XRay Report Signed Patient: Lupe Pickard MR#: [id number] : 1975 Acct:[id number] Age/Sex: 49 / F ADM Date: 5 Loc: XD Room: Type: [facility] Attending Dr: Omid Quan RN, MSN, ANP-C [...] Thacker M.D. 12/07/2024 11:37 AM Dictation Location: [facility]- Transcribed By: BOB 12/07/24 1137 Dictated By: Rizwana Thacker MD 12/07/24 1137 Signed By: 12/07/24 1137 [facility] Work Phone: XR chest 2V*on 24-00-6752LI chest 2V*[facility] [place] [address] [place] [address] XRay Report Signed Patient: Lupe Pickard MR#: [id number] : 1975 Acct:[id number] Age/Sex: 49 / F ADM Date: 12/07/24 Loc: XD Room: Type: [facility] Attending Dr: Omid Quan RN, MSN, ANP-C [...] Thacker M.D. 12/07/2024 11:37 AM Dictation Location: [place] [address] Transcribed By: BOB 12/07/24 1137 Dictated By: Rizwana Thacker MD 12/07/24 1137 Signed By: 12/07/24 [facility] Physician GrouppH of Urine by Test stripOrdered By: OMID QUAN on 09-07-7650tH (U)7.0 [pH]Normal5.0-9.0Good Samaritan HospitalComment on above:Order Comment: Name Collection Type:: Clean- Voided MidstreamPerformed By: #### LH, ESTRADIOL #### [facility] ,Heart and Vascular Office/Clinic Noteon 71-49-7059Aqhka and Vascular Office/Clinic NoteHeart and Vascular Office/Clinic Note Chief Complaint 6 [...] appropriate for agesensation equal & normal bilaterally, speechnormal Psychiatric: cooperative, affect appropriate for age, normal judgement, normal psychiatric thoughts. Assessment/Plan 1. Dyspnea on effort (R06.09: Other forms of dyspnea) - Monitor symptoms and consider further evaluation if dyspnea persists or worsens. Ordered: hydrochlorothiazide-losartan, 1 tab(s), Oral, Daily, 90 tab(s), Refill(s) 0, [facility], 167, cm, 11/29/24 15:47:00 EDT, Height/Length Dosing, 144.8, kg, 11/29/24 15:47:00 EDT, Weight Dosing Basic Metabolic Panel 2. Sleep apnea (G47.30: Sleep apnea, unspecified) I recommend Dr. Coon prescribe Wegovy to help with her sleep apnea as well as with her significant weight gain. Ordered: hydrochlorothiazide-losartan, 1 tab(s), Oral, Daily, 90 tab(s), Refill(s) 0, [facility], 167, cm, 11/29/24 15:47:00 EDT, [...] of anesthetic substance, therapeutic, caudal, continuous (10/10/2023), Injectionof therapeutic substance into bladder wall (12/14/2021), Injection of therapeutic substance into bladder wall (01/07/2020), Injection of therapeutic substance into bladder wall (04/25/2017), robotic surgery converted to laparoscopic bilateral salpingectomy (11/27/2014), Lumbar epidural steroid injection (06/14/2013), Radiofrequency ablation of nerve root of lumbar spine using fluoroscopic guidance (01/04/2013), Injection into facet joint of lumbar spine using fluoroscopic guidance (12/14/ (morecontent not included)...Normal [facility] HospitalComment on above:Result Comment: Electronically Signed By: Vickie PELAYO, Santos Katz\.br\Date and Time Signed: 11/29/24 16:57 EDTX- ray reportOrdered By: Larry Perez on 69-02-5000Elvpt reportSELECT [facility] [place] [address] XRay Report Signed Patient: Lupe Pickard MR#: [id number] : 1975 Acct:[id number] Age/Sex: 49 / F ADM Date: 5 Loc: XD Room: Type: [facility] Attending Dr: Dalia Mar IT HELP DESK MANAGER-C Copies to: Dalia Mar NP~ Ordering Provider: Dalia aMr NP Date of Service: 11/29/24 XR/XR lumbar spine 2-3V*: Lumbar spine pain 2 views lumbar spine INDICATION: Presurgery testing for neurostimulator COMPARISON: MRI lumbar spine 06/18/2024 FINDINGS: Mild dextrocurvature. Lumbar vertebral heights maintained. Mild multilevel anterior vertebral space narrowing and endplate osteophytosis identified. Anterolisthesis L4 upon identified 3 mm.Facet arthropathy L4-S1 greatest L5-S1. XR/XR lumbar spine 2-3V* IMPRESSION: Degenerative changes notably lower lumbar spine. Impression dictated by: Larry Perez M.D. 11/29/2024 2:03 PM Dictation Location: [facility]-26 Transcribed By: BOB 11/29/241402 Dictated By: Larry Perez MD 11/29/241401 Signed By: 11/29/24 140 [facility] Work Phone: XR lumbar spine 2-3V*on 08-01-8656KG lumbar spine 2-3V*[facility] [place] [address] [place] [address] XRay Report Signed Patient: Lupe Pickard MR#: [id number] : 1975 Acct:[id number] Age/Sex: 49 / F ADM Date: 11/29/24 Loc: XD Room: Type: [facility] Attending Dr: Dalia Mar IT HELP DESK MANAGER-C Copies to: Dalia Mar NP Ordering Provider: [...] Larry Perez MD 11/29/241401 Signed By: 11/29/24 [facility] HospitalNormMayo Clinic Florida Physician GroupBasic Metabolic Panelon 07-65-0809AES/1.73 sq M.predicted MDRD (S/P/Bld) [Vol rate/Area]mL/min/{1.73_m2} NormalThe Novant Health Physician GroupComment on above:Performed By: #### URMACRERAT #### [place] [address] USACalcium [Mass/volume] in Serum or PlasmaOrdered By: Dalia Mar on 52-72-7054Jyfptft [Mass/Vol]8.6 mg/dLNormal8.6-10.3FMercy Health Allen HospitalComment on above:Result Comment: PERFORMED BY: [place] [address] PATHOLOGIST SEASONER MARIUM AVALOS M.D.Performed By: #### URMACRERAT #### [facility] [address] [place] [address] USACarbon dioxide, total [Moles/volume] in Serum or Plasma Ordered By: Dalia Mar on 73-43-5334BO1 [Moles/Vol]31.9 mmol/LHigh21.0-31.0 [facility]itan HospitalComment on above:Performed By: #### URMACRERAT #### [facility] [address] [place] [address] USAChloride [Moles/volume] in Serum or PlasmaOrdered By: Dalia Mar on 59-65-6296Abqomlih [Moles/Vol]101 mmol/ROrkhwb95-118QfbjmyytgGood Samaritan HospitalComment on above:Performed By: #### URMACRERAT #### [facility] [address] [place], [place] [address] USACreatinine [Mass/volume] in Serum or PlasmaOrdered By: Dalia Mar on 73-68-6593Lsfkmacoga [Mass/Vol]0.53 mg/dLLow0.60-1.20[facility]itan HospitalComment on above:Performed By: #### URMACRERAT #### [facility] [address] [place], [place] [address] USAGlucose [Mass/volume] in Serum or PlasmaOrdered By: Dalia Risalitamara on 03-30-6025Trqwrlp [Mass/Vol]72 mg/tEIcvqjy55-148DwdazreqrGood Samaritan HospitalComment on above:ADA recommended reference rangeRandom Glucose Reference Range is dependent on time and content of last meal. Glucose of more than 200 mg/dL in a nonstressed, ambulatory subject supports the diagnosisof Diabetes Mellitus.Result Comment: Random Glucose Reference Range is dependent on time and content of last meal. Glucose of more than 200 mg/dL in a nonstressed, ambulatory subject supports the diagnosis of Diabetes Mellitus. ADA recommended reference rangePerformed By: #### URMACRERAT #### [place] [address] USANo Panel InformationOrdered By: Dalia Mar on 80-07-4548Xchfcmgdb GFR (CKD-EPI)> 60.0 mL/MinGood Samaritan Hospital Pharmacy Creatinine Clearance (ChemN/Chillicothe HospitalPotassium [Moles/volume] in Serum or PlasmaOrdered By: Dalia Mar on 11-27-2024 Potassium [Moles/Vol]4.2 mmol/LNormal3.5-5.1FMercy Health Allen Hospital Comment on above:Performed By: #### URMACRERAT #### [place] [address] USASerum or plasma anion gap determinationOrdered By: Dalia Mar on 42-75-4378Wbcdr gap [Moles/Vol]10.3 mmol/LNormal6.0-15.0[facility]aritan HospitalComment on above:Performed By: #### URMACRERAT #### [place] [address] USASodium [Moles/volume] in Serum or PlasmaOrdered By: Dalia Mar on 55-21-3048Dspegn [Moles/Vol]139 mmol/SHrhkei156-137OcridoanuGood Samaritan HospitalComment on above:Performed By: #### URMACRERAT #### [place] [address] USAThyrotropin [Units/volume] in Serum or PlasmaOrdered By: Kenyetta Dove on 92-68-7573DRO Qn1.89 m[IU]/LNormal0.45-5.33[facility]aritan HospitalComment on above:Result Comment: PERFORMED BY: [place] [address] PATHOLOGIST SEASONER MARIUM AVALOS M.D.Performed By: #### URMACRERAT #### [address] [address] USAThyroxine (T4) free [Mass/volume] in Serum or Plasma Ordered By: Kenyetta Dove on 45-07-8426Mwcz T4 [Mass/Vol]0.90 ng/dLNormal 0.61-1.12[facility]aritan HospitalComment on above:Performed By: #### URMACRERAT #### [facility] [address] [place] [address] USATriiodothyronine (T3) Freeon 11-13-7968Cxcfhlzgxineykwh (T3) Free3.12 pg/mLNormal2.50-3.90The [facility] Health Physician GroupComment on above: Result Comment: PERFORMED BY: [address] [address] PATHOLOGIST SEASONER MARIUM AVALOS M.D.Performed By: #### URMACRERAT #### [address] [address] USATriiodothyronine (T3) Free [Mass/volume] in Serum or PlasmaOrdered By: Kenyetta Dove on 24-44-4446Fabs T3 [Mass/Vol]3.12 pg/mL 2.50-3.90Good Samaritan HospitalUrea nitrogen [Mass/volume] in Serum or PlasmaOrdered By: Dalia Mar on 11-41-5288Kcmo nitrogen [Mass/Vol]9 mg/dL Normal7-25Good Samaritan HospitalComment on above:Performed By: #### URMACRERAT #### [address] [address] USAAmbulatory Visit Summaryon 39-12-3980Dqtkvirvpa Visit SummaryAmbulatory Visit Summary LUPE PICKARD :1975 Visit Date:11/26/2024 Ambulatory Visit Instructions Your Diagnosis Overactive bladder Your Care Team Attending Physician - LAITH PELAYODonya Primary Care Physician - MELISSA COON MD [...] of anesthetic substance, therapeutic, caudal, continuous (10/10/2023), Injectionof therapeutic substance into bladder wall (12/14/2021), Injection of therapeutic substance into bladder wall (01/07/2020), Injection of therapeutic substance into bladder wall (04/25/2017), robotic surgery converted to laparoscopic bilateral salpingectomy (11/27/2014), Lumbar epidural steroid injection (06/14/2013), Radiofrequency ablation of nerve root of lumbar spine using fluoroscopic guidance (01/04/2013), Injection into facet joint of lumbar spine using fluoroscopic guidance (12/14/2012),Injection into facet joint of lumbar spine using fluoroscopic guidance (11/16/2012), Lumbar Selective Nerve Root Block (07/28/2012), Lumbar Selective Nerve Root Block (06/23/2012), Cystourethroscopy with dilation of urethral stricture (04/26/2011), section, essure procedure, LEEP procedureof cervix, Thyroidectomy. Discharge Vitals Height 171 cm Height 67 in Weight 142.8 kg Weight 314.82 lb BMI 48.84 What to do next Scheduled Follow-Up Appointments 2024 3:45 PM EDT With: Vickie PELAYO, Santos Katz Where: [facility] You Need to Schedule the Following Appointments Follow Up with Donya OZUNA MD, URKyler When: Where: [address] [place] [address]- Medications What How Much When Why [...] mg Cap) Contact prescribing physician if questions orconcerns Unchanged levothyroxine (Synthroid 112 mcg Tab) 1 Tablets By Mouth Every day Hypothyroidism managedby endocrinology Contact prescribing physician if questions or [...] GERD (gastroesophageal reflux dis (more content not included)...[facility] BeachwoodUrology Office/Clinic Noteon 54-94-4995Uszrffz Office/Clinic NoteUrology Office/Clinic Note Chief Complaint urinary retention issues [...] an indwelling catheter or need for in/out c atheterization to empty the bladder, and need for repeat procedures over time (usually lasts up to six months), as well as fatigue and insomnia, among others. There is a minimal risk of Botox entering the blood stream and causing neurological problems, which is quite rare. Full informed consent hasbeen obtained. Will order Local anesthesia. Overall symptoms are becoming much more significant and she wants to proceed with a repeat Botox. She has been struggling with the lower extremity edema and this is being managed by her PCP. She isnow up to 40 mg twice daily with [...] Information LAITH PELAYO, Donya Weller, URL [address] [address]- Additional Instructions: schedule Botox Patient Education Botulinum Toxin Bladder Injection IShayna, personally scribed for Dr. Ozuna on 11/26/2024 10:47:25. . Documentation recorded by the scribe, Shayna Galaviz, accurately reflects the services(s) I performed and decisions made by me. Authenticated by Dr. Ozuna on 11/26/2024 11:02:18. Portions of this record may have been created with voice recognition artificial intelligence software, specifically Allmoxy, VOZ and or GITR. Substitutions may have occurred due to the [...] cuff injury Shoulder pa (more content not included)...[facility] Comment on above:Result Comment: Electronically Signed By: Donya OZUNA MD P\.br\Date and Time Signed: 11/26/24 11:03 EDT\.br\Electronically Co-Signed By: Shayna Galaviz P\.br\Date and Time Co-Signed: 11/26/24 10:47 EDTBNP ser/plas Ordered By: Dalia Mar on 35-47-8829Tbinidwtlne peptide B (Bld) [Mass/Vol] 54.0 pg/mLNormal5-100[facility]aritan HospitalComment on above:Result Comment: PERFORMED BY: [place] [address] PATHOLOGIST SEASONER MARIUM AVALOS M.D.Performed By: #### LH, ESTRADIOL #### [facility] ,Basic Metabolic Panelon 06-60-8887AWF/1.73 sq M.predicted MDRD (S/P/Bld) [Vol rate/Area]mL/min/{1.73_m2}NormalThe Novant Health Physician GroupComment on above: Performed By: #### URMACRERAT #### [facility] [address] [place] [address] USACalcium [Mass/volume] in Serum or PlasmaOrdered By: Dalia Mar on 72-08-1793Yezgikk [Mass/Vol]8.8 mg/dLNormal8.6-10.3FMercy Health Allen HospitalComment on above:Result Comment: PERFORMED BY: [address] [address] PATHOLOGIST SEASONER MARIUM AVALOS M.D.Performed By: #### URMACRERAT #### [facility] [address] [place] [address] USACarbon dioxide, total [Moles/volume] in Serum or Plasma Ordered By: Dalia Mar on 12-33-4677CE4 [Moles/Vol]29.8 mmol/GGfzamu28.0-31.0 [facility] HospitalComment on above:Performed By: #### URMACRERAT #### [facility] [address] [place] [address] USAChloride [Moles/volume] in Serum or PlasmaOrdered By: Dalia Mar on 01-82-0491Qcxpidwp [Moles/Vol]103 mmol/IHckvue01-132VemwbrgloGood Samaritan HospitalComment on above:Performed By: #### URMACRERAT #### [facility] [address] [place] [address] USACreatinine [Mass/volume] in Serum or PlasmaOrdered By: Dalia Mar on 55-52-5694Zmfyyhkowf [Mass/Vol]0.50 mg/dLLow0.60-1.20[facility]itan HospitalComment on above:Performed By: #### URMACRERAT #### [facility] [address] [place] [address] USAGlucose [Mass/volume] in Serum or PlasmaOrdered By: Dalia Mar on 87-91-0289Mzpevnc [Mass/Vol]100 mg/eFDaaavm28-308ZpurixuluGood Samaritan HospitalComment on above:ADA recommended reference rangeRandom Glucose Reference Range is dependent on time and content of last meal. Glucose of more than 200 mg/dL in a nonstressed, ambulatory subject supports the diagnosisof Diabetes Mellitus.Result Comment: Random Glucose Reference Range is dependent on time and content of last meal. Glucose of more than 200 mg/dL in a nonstressed, ambulatory subject supports the diagnosis of Diabetes Mellitus. ADA recommended reference rangePerformed By: #### URMACRERAT #### [facility] [address] [place] [address] USANo Panel InformationOrdered By: Dalia Mar on 76-45-7852Quutjvzyk GFR (CKD-EPI)> 60.0 mL/MinGood Samaritan Hospital Pharmacy Creatinine Clearance (ChemN/Chillicothe HospitalPotassium [Moles/volume] in Serum or PlasmaOrdered By: Dalia Mar on 11-21-2024 Potassium [Moles/Vol]4.2 mmol/LNormal3.5-5.1FMercy Health Allen Hospital Comment on above:Performed By: #### URMACRERAT #### [facility] [address] [place] [address] USASerum or plasma anion gap determinationOrdered By: Dalia Mar on 86-63-7357Nsebs gap [Moles/Vol]9.4 mmol/LNormal6.0-15.0[facility] HospitalComment on above:Performed By: #### URMACRERAT #### [facility] [address] [place] [address] USASodium [Moles/volume] in Serum or PlasmaOrdered By: Dalia Mar on 23-59-7614Obmrdl [Moles/Vol]138 mmol/XNzyelc943-628LpsiefantGood Samaritan HospitalComment on above:Performed By: #### URMACRERAT #### [facility] [address] [place] [address] USAUrea nitrogen [Mass/volume] in Serum or PlasmaOrdered By: Dalia Mar on 76-92-5193Zrkt nitrogen [Mass/Vol]13 mg/dLNormal7-[facility] HospitalComment on above:Performed By: #### URMACRERAT #### [facility] [address] [place], [place] [address] USAECH echo transthoracicon 63-34-9971HIY echo transthoracic [facility] [place] [address] [place] [address] Echocardiogram Signed Patient: Lupe Pickard MR#: [id number] : 1975 Acct:[id number] Age/Sex: 49 / F ADM Date: 11/09/24 Loc: Room: Type: [facility] Attending Dr: Tanner Menendez PA-C Ordering Provider: Tanner Menendez PA-C Date of Service: 11/09/24/ ECH/ECH echo transthoracic: EDEMA, SOB Copies to: Ric Asher MD, FACC Tanner Menendez PA-C BSA: 2.4 m2 BP: [...] SCV Performed At: 11/09/24 0858 Signed By: Ric Asher MD, [facility] 11/09/24 1644[facility] Physician Baptist Memorial HospitalAdrenocorticotropic Hormone PLon 41-92-9101Izjepqphennyehyizos Hormone PL 19.5 pg/mLNormal7.2-63.3The [facility] Physician [facility] HospitalComment on above:Order Comment: Comment Pre-CosyntropinResult Comment: ACTH reference interval for samples collected between 7 and 10 AM. Performed at: - [facility] [id number] Maintenance Manager: Ramirez Ca PhD, Phone: [phone] PERFORMED BY: [facility] [place] [address] PATHOLOGIST SEASONER MARIUM AVALOS M.D.Performed By: #### LH, ESTRADIOL #### [facility] ,Cortisol, ACTH Stimulationon 04-81-6348Hcaeiynh, ACTH StimulationNoNorth Carolina Specialty Hospital Physician GroupComment on above:Order Comment: Comment Pre- Cosyntropin, 30 60 min postResult Comment: Dominic Base 11.5 Col: 10/25/24 0827 Dominic 30Min 17.0 Col: 10/25/24 0920 Dominic 60Min 22.6 Col: 10/25/24 0947 PERFORMED BY: [place] [address] PATHOLOGIST SEASONER MARIUM AVALOS M.D.Performed By: #### LH, ESTRADIOL #### [facility] ,No Panel InformationOrdered By: Kenyetta Dove on 89-03-4595Pfmrwjnh Response to StimulationSee St. John of God HospitalComment on above:[employer]ic [employer] 11.5 Col: 10/25/24 0827 Dominic 30Min PENDING RECEIPT Col: 10/25/24 0915 Dominic 60Min PENDING RECEIPT Col: 10/25/24 0945Cort [employer] 11.5 Col: 10/25/24 0827 Dominic 30Min 17.0 Col: 10/25/24 0920 Dominic 60Min 22.6 Col: 10/25/24 0947Alanine aminotransferase [Enzymatic activity/volume] in Serum or PlasmaOrdered By: Tanner Menendez on 31-13-8971JXB [Catalytic activity/Vol]Alanine aminotransferase [Enzymatic activity/volume] in Serum or Plasma[address] [place], [place] [address]ALT [Catalytic activity/Vol]15 U/LNormal[address] [place], [place] [address]Comment on above:Performed By: #### CMP #### [place] [address] USAAlbumin [Mass/volume] in Serum or Plasma by Bromocresol green (BCG) dye binding methoOrdered By: Tanner Menendez on 85-93-9621Ssjasig BCG dye [Mass/Vol]Albumin [Mass/volume] in Serum or Plasma by Bromocresol green (BCG) dye binding metho3.5-5.7FMercy Health Allen HospitalAlbumin BCG dye [Mass/Vol]3.7 g/dL3.5-5.7FMercy Health Allen HospitalAlkaline phosphatase [Enzymatic activity/volume] in Serum or PlasmaOrdered By: Tanner Menendez on 97-88-9899MWE [Catalytic activity/Vol]Alkaline phosphatase [Enzymatic activity/volume] in Serum or Pmlcti09-204YvgiugcepGood Samaritan HospitalALP [Catalytic activity/Vol]51 U/NZibpwe31-755EzifoieczGood Samaritan Hospital Comment on above:Result Comment: PERFORMED BY: [address] [address] PATHOLOGIST SEASONER SYLVIA CRUZ M.D.Performed By: #### CMP #### [address] [address] USAAspartate aminotransferase [Enzymatic activity/volume] in Serum or PlasmaOrdered By: Summer Workman on 69-42-2718XMO [Catalytic activity/Vol]Aspartate aminotransferase [Enzymatic activity/volume] in Serum or IckyswZvn68-66UwdvhhiwcGood Samaritan HospitalAST [Catalytic activity/Vol]12 U/ZYfh54-69Cceziwxpg23 Wolf StreetComment on above:Performed By: #### CMP #### [facility] [address] [place], [place] [address] USABNP ser/plasOrdered By: Summer Workman on 10-09-2024 Natriuretic peptide B (Bld) [Mass/Vol]86.0 pg/mLNormal5100Good Samaritan HospitalComment on above:Result Comment: PERFORMED BY: [address] [address] PATHOLOGIST SEASONER SYLVIA CRUZ M.D.Performed By: #### BNP #### [facility] [address] [place] [address] USABilirubin.total [Mass/volume] in Serum or PlasmaOrdered By: Summer Workman on 55-65-8993Egdhcxyti [Mass/Vol]Bilirubin.total [Mass/volume] in Serum or Plasma0.3-1.0[facility] Bilirubin [Mass/Vol]0.3 mg/dLNormal0.3-1.0[facility] Comment on above:Performed By: #### CMP #### [facility] [address] [place] [address] USACalcium [Mass/volume] in Serum or PlasmaOrdered By: Summer Workman on 68-21-9730Kyudszw [Mass/Vol]Calcium [Mass/volume] in Serum or Plasma 8.6-10.3FMercy Health Allen HospitalCalcium [Mass/Vol]8.6 mg/dLNormal 8.6-10.3FMercy Health Allen HospitalComment on above:Performed By: #### CMP #### [facility] [address] [id number] USACarbon dioxide, total [Moles/volume] in Serum or Plasma Ordered By: Summer Workman on 54-20-5757SW7 [Moles/Vol]Carbon dioxide, total [Moles/volume] in Serum or MzqvghJbfj32.0-31.0[facility] CO2 [Moles/Vol]31.1 mmol/LHigh21.0-31.0Good Samaritan HospitalComment on above:Performed By: #### CMP #### [facility] [address] [place] [address] USAChloride [Moles/volume] in Serum or PlasmaOrdered By: Summer Workman on 35-89-1169Pxxhhtxf [Moles/Vol]Chloride [Moles/volume] in Serum or Eafkls56-902OvocclmheGood Samaritan HospitalChloride [Moles/Vol]103 mmol/L Qnlvbd51-986Exylwec[address] [place], [place] [address]Comment on above:Performed By: #### CMP #### [facility] [address] [place] [address] USAComprehensive Metabolic Panelon 53-44-2306Alfsecj [Mass/Vol]3.7 g/dLNormal3.5-5.7The [facility] Physician GroupComment on above: Performed By: #### CMP #### [facility] [address] [place] [address] USAGFR/1.73 sq M.predicted MDRD (S/P/Bld) [Vol rate/Area] mL/min/{1.73_m2}NormalThe [facility] Health Physician GroupComment on above:Performed By: #### CMP #### [address] [address] USACreatinine [Mass/volume] in Serum or PlasmaOrdered By: Summer Workman on 50-55-7881Pvmksacbra [Mass/Vol]Creatinine [Mass/volume] in Serum or PlasmaLow0.60-1.20Good Samaritan HospitalCreatinine [Mass/Vol]0.45 mg/dLLow0.60-1.20Good Samaritan HospitalComment on above:Performed By: #### CMP #### [facility] [address] [id number] USACreatinine [Mass/volume] in UrineOrdered By: Summer Workman on 18-40-7428Mzeotmhubv (U) [Mass/Vol]Creatinine [Mass/volume] in Urine Good Samaritan HospitalComment on above:No reference range established Creatinine (U) [Mass/Vol]34.00 mg/dLGood Samaritan HospitalComment on above:No reference range establishedGlobulin Calc (S) [Mass/Vol]Ordered By: Summer Workman on 01-16-9741Rebjodcj (S) [Mass/Vol]Serum globulin measurement by calculation (mass/volume)Good Samaritan HospitalGlucose [Mass/volume] in Serum or PlasmaOrdered By: Summer Workman on 64-82-1749Acieemd [Mass/Vol] Glucose [Mass/volume] in Serum or ChgxehNrad94-150YowajolilGood Samaritan HospitalComment on above:ADA recommended reference rangeRandom Glucose Reference Range is dependent on time and content of last meal. Glucose of more than 200 mg/dL in a nonstressed, ambulatory subject supports the diagnosisof Diabetes Mellitus.Glucose [Mass/Vol]110 mg/vMXijc62-404ShtcuyhspGood Samaritan Hospital Comment on above:ADA recommended reference rangeRandom Glucose Reference Range is dependent on time and content of last meal. Glucose of more than 200 mg/dL in a nonstressed, ambulatory subject supports the diagnosisof Diabetes Mellitus. Result Comment: Random Glucose Reference Range is dependent on time and content of last meal. Glucose of more than 200 mg/dL in a nonstressed, ambulatory subject supports the diagnosis of Diabetes Mellitus. ADA recommended reference rangePerformed By: #### CMP #### [facility] [address] [id number] USAMicroAlb Creat Ratio,Uon 41-10-6736Ibyhfbilas, Urine (Random)34.00 mg/dLNoNorth Carolina Specialty Hospital Physician GroupComment on above:Result Comment: No reference range establishedPerformed By: #### URMACRERAT #### [facility] [address] [place], [place] [address] USAMicroalbumin/Creatinine RatioNot performedNormal0.0-30.0 The [facility] Physician [facility] Memorial HospitalComment on above:Result Comment: PERFORMED BY: [place] [address] PATHOLOGIST SEASONER SYLVIA CRUZ M.D.Performed By: #### URMACRERAT #### [facility] [address] [place], [place] [address] USAMicroalbumin [Mass/volume] in UrineOrdered By: Tanner Workman on 53-33-2816Tocuqvi DL <= 20 mg/L (U) [Mass/Vol]Microalbumin [Mass/volume] in Urine0.0-1.8Good Samaritan HospitalAlbumin DL <= 20 mg/L (U) [Mass/Vol]mg/dLNormal0.0-1.8Good Samaritan HospitalComment on above:Performed By: #### URMACRERAT #### [facility] [address] [place], [place] [address] USANatriuretic peptide B [Mass/Vol]Ordered By: Tanner Workjonathan on 09-28-3867Vdyptdfowxk peptide B (Bld) [Mass/Vol]BNP ser/plas5-100Good Samaritan HospitalNo Panel InformationOrdered By: Tanner Workjonathan on 66-86-6573Bqjcudcom GFR (CKD-EPI)> 60.0 mL/MinGood Samaritan Hospital Pharmacy Creatinine Clearance (ChemN/AFMercy Health Allen HospitalPotassium [Moles/volume] in Serum or PlasmaOrdered By: Tanner Workman on 10-09-2024 Potassium [Moles/Vol]Potassium [Moles/volume] in Serum or Plasma3.5-5.1FMercy Health Allen HospitalPotassium [Moles/Vol]4.0 mmol/LNormal3.5-5.1FMercy Health Allen HospitalComment on above:Performed By: #### CMP #### [facility] [address] [place] [address] USAProtein [Mass/volume] in Serum or PlasmaOrdered By: Summer Workman on 42-12-0173Whmbdba [Mass/Vol]Protein [Mass/volume] in Serum or Plasma Low6.4-8.9Good Samaritan HospitalProtein [Mass/Vol]6.0 g/dLLow6.4-8.9 [facility]itan HospitalComment on above:Performed By: #### CMP #### [facility] [address] [place] [address] USASerum globulin measurement by calculation (mass/volume) Ordered By: Summer Workman on 22-91-9141Hpiimbme (S) [Mass/Vol]2.3 g/dLNormal [facility]itan HospitalComment on above:Performed By: #### CMP #### [facility] [address] [place] [address] USASerum or plasma albumin/globulin mass ratioOrdered By: Summer Workman on 84-02-0926Ridkbqi/Globulin [Mass ratio]Serum or plasma albumin/globulin mass ratioGood Samaritan HospitalAlbumin/Globulin [Mass ratio]1.6 {ratio}NormalGood Samaritan HospitalComment on above: Performed By: #### CMP #### [facility] [address] [place] [address] USASerum or plasma anion gap determinationOrdered By: Summer Workman on 36-66-5525Xryov gap [Moles/Vol]Serum or plasma anion gap determination6.0-15.0Good Samaritan HospitalAnion gap [Moles/Vol]8.9 mmol/LNormal6.0-15.0[facility]aritan HospitalComment on above:Performed By: #### CMP #### [facility] [address] [place] [address] USASodium [Moles/volume] in Serum or PlasmaOrdered By: Summer Workman on 34-34-9433Udqfdv [Moles/Vol]Sodium [Moles/volume] in Serum or Plasma 136-145[facility] Hospital - Cincinnatiodium [Moles/Vol]139 mmol/LNormal 136-145Good Samaritan HospitalComment on above:Performed By: #### CMP #### [facility] [address] [id number] USAUrea nitrogen [Mass/volume] in Serum or PlasmaOrdered By: Summer Workman on 52-34-0860Uvpw nitrogen [Mass/Vol]Urea nitrogen [Mass/volume] in Serum or Plasma12-21Good Samaritan HospitalUrea nitrogen [Mass/Vol]9 mg/dLNormal12-21Good [facility]aritan HospitalComment on above:Performed By: #### CMP #### [facility] [address] [id number] USAUrine microalbumin/creatinine mass ratioOrdered By: Summer Workman on 42-67-1205Gtsfoii/Creatinine DL <= 20 mg/L (U) [Mass ratio]Urine microalbumin/creatinine mass ratioGood Samaritan HospitalComment on above:Test not performedAlbumin/Creatinine DL <= 20 mg/L (U) [Mass ratio]TNP [facility] Samaritan HospitalComment on above:Test not performedCortisolon 39-39-3476Vfwsomme6.2 ug/dLNoNorth Carolina Specialty Hospital Physician GroupComment on above: Result Comment: Reference range: AM 6 - 24 ug/dl PM <10 ug/dl [facility] structures technician and method: BuzzooleEL DXI, POLYCLONAL ANTIBODY CORTISOL ASSAY. PERFORMED BY: [place] [address] PATHOLOGIST SEASONER SYLVIA CRUZ M.D.Performed By: #### DOMINIC #### [facility] [address] [place] [address] USACortisol [Mass/volume] in Serum or PlasmaOrdered By: Kenyetta Dove on 86-28-9958Weqhslbt [Mass/Vol]Random cortisol measurementGood Samaritan HospitalComment on above:[facility] structures technician and method:KAREN UNICEL DXI, POLYCLONAL ANTIBODY CORTISOL ASSAY.Reference range: AM 6 - 24 ug/dl PM <10 ug/dlCortisol [Mass/Vol]6.2 ug/dLGood Samaritan HospitalComment on above:[facility] structures technician and method:KAREN UNICEL DXI, POLYCLONAL ANTIBODY CORTISOL ASSAY.Reference range: AM 6 - 24 ug/dl PM <10 ug/dlAlanine aminotransferase [Enzymatic activity/volume] in Serum or PlasmaOrdered By: Melissa Coon on 49-31-5123ZOT [Catalytic activity/Vol]Alanine aminotransferase [Enzymatic activity/volume] in Serum or Plasma7-52Good Samaritan HospitalAlbumin [Mass/volume] in Serum or Plasma by Bromocresol green (BCG) dye binding methoOrdered By: Melissa Coon on 50-57-1466Dbmecyv BCG dye [Mass/Vol]Albumin [Mass/volume] in Serum or Plasma by Bromocresol green (BCG) dye binding metho3.5-5.7FMercy Health Allen HospitalAlkaline phosphatase [Enzymatic activity/volume] in Serum or PlasmaOrdered By: Melissa Coon on 14-92-6493SJH [Catalytic activity/Vol]Alkaline phosphatase [Enzymatic activity/volume] in Serum or Ssdmwe72-726WfczbhuuzGood Samaritan HospitalAspartate aminotransferase [Enzymatic activity/volume] in Serum or Plasma Ordered By: Melissa Coon on 85-83-2196VBT [Catalytic activity/Vol]Aspartate aminotransferase [Enzymatic activity/volume] in Serum or WdmxnyVhy59-43ZuayoqifjGood Samaritan HospitalBasophils Auto (Bld) [#/Vol]Ordered By: Melissa Coon on 19-95-3953Gwhtseeid (Bld) [#/Vol]Automated basophil count0.0-0.2FMercy Health Allen HospitalBasophils/100 WBC Auto (Bld)Ordered By: Melissa Coon on 04-48-2151Syhgxlvfx/100 WBC (Bld)Automated basophil %.Good Samaritan HospitalBilirubin.total [Mass/volume] in Serum or PlasmaOrdered By: Melissa Coon on 18-53-1447Gznswagng [Mass/Vol]Bilirubin.total [Mass/volume] in Serum or Plasma0.3-1.0[facility]itan HospitalCalcium [Mass/volume] in Serum or PlasmaOrdered By: Melissa Coon on 31-05-6973Xuuvgws [Mass/Vol]Calcium [Mass/volume] in Serum or Plasma8.6-10.3FMercy Health Allen HospitalCarbon dioxide, total [Moles/volume] in Serum or PlasmaOrdered By: Melissa Coon on 26-65-4364BU8 [Moles/Vol]Carbon dioxide, total [Moles/volume] in Serum or Plasma 21.0-31.0Good [facility]itan HospitalChloride [Moles/volume] in Serum or PlasmaOrdered By: Melissa Coon on 01-60-0393Ykdoovwn [Moles/Vol]Chloride [Moles/volume] in Serum or Qpjlod53-076AbtasjvydGood Samaritan HospitalComplete Blood Count Auto Diffon 09-55-8997Sdbkoqhbc (Bld) [#/Vol]0.1 10*3/uLNormal 0.0-0.2The [facility] Physician GroupComment on above:Result Comment: PERFORMED BY: [place] [address] PATHOLOGIST SEASONER SYLVIA CRUZ M.D.Performed By: #### URMACRERAT #### [facility] [address] [place] [address] USABasophils/100 WBC (Bld)0.7 %Normal.The [facility] Physician GroupComment on above:Performed By: #### URMACRERAT #### [facility] [address] [place] [address] USAEosinophils (Bld) [#/Vol]0.1 10*3/uLNormal0.0-0.45The [facility] Physician GroupComment on above:Performed By: #### URMACRERAT #### [facility] [address] [place] [address] USAEosinophils/100 WBC (Bld)1.1 %Normal.The [facility] Physician GroupComment on above:Performed By: #### URMACRERAT #### [facility] [address] [place] [address] USAErythrocyte distribution width (RBC) [Ratio]14.3 %Normal 11.9-15.3The [facility] Physician GroupComment on above:Performed By: #### URMACRERAT #### [facility] [address] [place] [address] USAHematocrit (Bld) [Volume fraction]41.4 %Ifhhuw36.0-46.4The [facility] Physician GroupComment on above:Performed By: #### URMACRERAT #### [facility] [address] [place] [address] USAHemoglobin (Bld) [Mass/Vol]13.9 g/eMIykrxj88.8-15.4The [facility] Physician GroupComment on above:Performed By: #### URMACRERAT #### [facility] [address] [place] [address] USALymphocytes (Bld) [#/Vol]3.4 10*3/uLNormal1.00-4.8The [facility] Physician GroupComment on above:Performed By: #### URMACRERAT #### [place] [address] USALymphocytes/100 WBC (Bld)28.3 %Normal.The [facility] Physician GroupComment on above:Performed By: #### URMACRERAT #### [place] [address] USAMCH (RBC) [Entitic mass]30.6 hrXavlqj39.7-34.3The [facility] Physician GroupComment on above:Performed By: #### URMACRERAT #### [place] [address] USAMCV (RBC) [Entitic vol]90.8 nIOkwmfr12-829Wel [facility] Physician GroupComment on above:Performed By: #### URMACRERAT #### [place] [address] USAMean Corpuscular HGB Conc33.7 g/eDZvzudd08.0-35.0The [facility] Physician GroupComment on above:Performed By: #### URMACRERAT #### [place] [address] USAMonocytes (Bld) [#/Vol]0.6 10*3/uLNormal0.0-0.8The [facility] Physician GroupComment on above:Performed By: #### URMACRERAT #### [facility] [address] [place] [address] USAMonocytes/100 WBC (Bld)4.6 %Normal.The [facility] Physician GroupComment on above:Performed By: #### URMACRERAT #### [facility] [address] [place] [address] USANeutrophils (Bld) [#/Vol]7.9 10*3/uLHigh1.8-7.7The [facility] Physician GroupComment on above:Performed By: #### URMACRERAT #### [facility] [address] [place] [address] USANeutrophils/100 WBC (Bld)65.3 %Normal.The [facility] Physician GroupComment on above:Performed By: #### URMACRERAT #### [facility] [address] [place] [address] USANRBC%0.0 /100{WBC}Normal0-0.5The [facility] Comment on above:Performed By: #### URMACRERAT #### [facility] [address] [place] [address] USAPlatelet mean volume (Bld) [Entitic vol]7.5 fLNormal 6.3-10.7The [facility] Physician GroupComment on above:Performed By: #### URMACRERAT #### [facility] [address] [place] [address] USAPlatelets (Bld) [#/Vol]395 10*3/eUOddsse351-231Jgv [facility] Physician GroupComment on above:Performed By: #### URMACRERAT #### [facility] [address] [place] [address] USARBC (Bld) [#/Vol]4.56 10*6/uLNormal3.60-5.00The [facility] Physician GroupComment on above:Performed By: #### URMACRERAT #### [facility] [address] [place] [address] USAWBC (Bld) [#/Vol]12.1 10*3/uLHigh3.8-11.6The [facility] Physician GroupComment on above:Performed By: #### URMACRERAT #### [facility] [address] [place] [address] USAComprehensive Metabolic Panelon 81-29-1935Dryuxhg [Mass/Vol]3.7 g/dLNormal3.5-5.7The [facility] Physician GroupComment on above: Performed By: #### URMACRERAT #### [facility] [address] [place] [address] USAAlbumin/Globulin [Mass ratio]1.4 {ratio}NormalThe [facility] Physician GroupComment on above:Performed By: #### URMACRERAT #### [facility] [address] [place] [address] USAALP [Catalytic activity/Vol]47 U/BSealyq95-194Nou [facility] Physician GroupComment on above:Performed By: #### URMACRERAT #### [facility] [address] [place] [address] USAALT [Catalytic activity/Vol]17 U/LNormal7-52The [facility] Physician GroupComment on above:Performed By: #### URMACRERAT #### [facility] [address] [place] [address] USAAnion gap [Moles/Vol]10.1 mmol/LNormal6.0-15.0The [facility] Physician GroupComment on above:Performed By: #### URMACRERAT #### [facility] [address] [place] [address] USAAST [Catalytic activity/Vol]12 U/FPzj37-22Trs [facility] Physician GroupComment on above:Performed By: #### URMACRERAT #### [facility] [address] [place] [address] USABilirubin [Mass/Vol]0.5 mg/dLNormal0.3-1.0The [facility] Physician GroupComment on above:Performed By: #### URMACRERAT #### [facility] [address] [place] [address] USACalcium [Mass/Vol]8.7 mg/dLNormal8.6-10.3The [facility] Physician GroupComment on above:Performed By: #### URMACRERAT #### [facility] [address] [place] [address] USAChloride [Moles/Vol]105 mmol/YMcohww34-272Xvf [facility] Physician GroupComment on above:Performed By: #### URMACRERAT #### [facility] [address] [place] [address] USACO2 [Moles/Vol]29.2 mmol/BHvsfpo36.0-31.0The [facility] Physician GroupComment on above:Performed By: #### URMACRERAT #### [facility] [address] [place] [address] USACreatinine [Mass/Vol]0.58 mg/dLLow0.60-1.20The [facility] Physician GroupComment on above:Performed By: #### URMACRERAT #### [facility] [address] [place] [address] USAGFR/1.73 sq M.predicted MDRD (S/P/Bld) [Vol rate/Area] mL/min/{1.73_m2}NormalThe [facility] Physician GroupComment on above:Performed By: #### URMACRERAT #### [facility] [address] [place] [address] USAGlobulin (S) [Mass/Vol]2.6 g/dLNormalThe [facility] Physician GroupComment on above:Performed By: #### URMACRERAT #### [facility] [address] [place] [address] USAGlucose [Mass/Vol]98 mg/aDFkraek64-138Col [facility] Physician GroupComment on above:Result Comment: Random Glucose Reference Range is dependent on time and content of last meal. Glucose of more than 200 mg/dL in a nonstressed, ambulatory subject supports the diagnosis of Diabetes Mellitus. ADA recommended reference rangePerformed By: #### URMACRERAT #### [facility] [address] [place] [address] USAPotassium [Moles/Vol]4.3 mmol/LNormal3.5-5.1The [facility] Physician [facility] Memorial HospitalComment on above:Performed By: #### URMACRERAT #### [facility] [address] [place] [address] USAProtein [Mass/Vol]6.3 g/dLLow6.4-8.9The [facility] Physician [facility] HospitalComment on above:Performed By: #### URMACRERAT #### [facility] [address] [place] [address] USASodium [Moles/Vol]140 mmol/AUthjbh320-126Tbi [facility]ician [facility] HospitalComment on above:Performed By: #### URMACRERAT #### [facility] [address] [place] [address] USAUrea nitrogen [Mass/Vol]14 mg/dLNormal7-25The [facility] Physician [facility] HospitalComment on above:Performed By: #### URMACRERAT #### [facility] [address] [place] [address] USACortisolon 83-39-5221Ptwgdpun6.3 ug/dLNoNewark Hospitale [facility] Physician [facility] Memorial HospitalComment on above:Result Comment: Reference range: AM 6 - 24 ug/dl PM <10 ug/dl [facility] structures technician and method: [employer] UNICEL DXI, POLYCLONAL ANTIBODY CORTISOL ASSAY.Performed By: #### CMP #### [facility] [address] [place] [address] USACortisol [Mass/volume] in Serum or PlasmaOrdered By: Melissa Coon on 35-78-9377Wntxvnce [Mass/Vol]Random cortisol measurementGood Samaritan HospitalComment on above:[facility] structures technician and method:KAREN UNICEL DXI, POLYCLONAL ANTIBODY CORTISOL ASSAY.Reference range: AM 6 - 24 ug/dl PM <10 ug/dlCreatinine [Mass/volume] in Serum or PlasmaOrdered By: Melissa Coon on 38-86-5513Uhpafzrrss [Mass/Vol]Creatinine [Mass/volume] in Serum or PlasmaLow0.60-1.20Good Samaritan HospitalEosinophils Auto (Bld) [#/Vol]Ordered By: Melissa Coon on 74-20-7851Dcnubuimtia (Bld) [#/Vol] Automated eosinophil count0.0-0.45[facility] Eosinophils/100 WBC Auto (Bld)Ordered By: Melissa Calion on 08-03-2024 Eosinophils/100 WBC (Bld)Automated eosinophil %.Good Samaritan HospitalErythrocyte distribution width Auto (RBC) [Ratio]Ordered By: Melissa Coon on 03-40-4816Hegamvlzbuk distribution width (RBC) [Ratio]Erythrocyte distribution width [Ratio] by Automated count11.9-15.3FMercy Health Allen HospitalEstradiolon 49-25-5149Kjdsymiuv<5.0Normal.The [facility] Comment on above:Result Comment: Adult Female Range Follicular phase 12.5 - 166.0 Ovulation phase 85.8 - 498.0 Luteal phase 43.8 - 211.0 Postmenopausal <6.0 - 54.7 1st trimester 215.0 - >4300.0 [place] ECLIA methodology Performed at: [facility] [place] [id number] Maintenance Manager: Ramirez Ca PhD, Phone: [phone] PERFORMED BY: [address] [place] [address] PATHOLOGIST SEASONER SYLVIA CRUZ M.D.Performed By: #### LH, ESTRADIOL #### [facility] ,Ferritinon 06-60-2156Niigmopl [Mass/Vol]100.7 ng/hIFzdpik30.0-306.8The [facility] Physician GroupComment on above:Performed By: #### CMP #### [place] [address] USAFerritin [Mass/volume] in Serum or PlasmaOrdered By: Melissa Coon on 24-89-9881Cblnvwnb [Mass/Vol]Ferritin [Mass/volume] in Serum or Xhbsju92.0-306.8Good Samaritan HospitalFollicle Stimulating Hormoneon 07-66-5982Ighditrk Stimulating Wmodoao83.3 m[iU]/mLNormalThe [facility] Physician GroupComment on above:Result Comment: FEMALE NORMALS (PREMENOPAUSE) MID-FOLLICULAR PHASE: 3.9-8.8 mIU/mL MID-CYCLE PEAK: 4.5-22.5 mIU/mL MID-LUTEAL PHASE: 1.8-5.1 mIU/mL FEMALE NORMALS (POSTMENOPAUSE): 16.7-113.6 mIU/mL MALE NORMALS: 1.3-19.3 mIU/mLPerformed By: #### CMP #### [facility] [address] [id number] USAFollitropin [Units/volume] in Serum or PlasmaOrdered By: Melissa Coon on 54-88-2982Suweeuuvkhq QnFollitropin [Units/volume] in Serum or PlasmaGood Samaritan HospitalComment on above:FEMALE NORMALS (PREMENOPAUSE) MID-FOLLICULAR PHASE: 3.9-8.8 mIU/mL MID-CYCLE PEAK: 4.5-22.5 mIU/mL MID-LUTEAL PHASE: 1.8-5.1 mIU/mLFEMALE NORMALS (POSTMENOPAUSE): 16.7- 113.6 mIU/mLMALE NORMALS: 1.3-19.3 mIU/mLGlobulin Calc (S) [Mass/Vol]Ordered By: Melissa Coon on 78-77-5913Fqiufpcl (S) [Mass/Vol]Serum globulin measurement by calculation (mass/volume)[facility] HospitalGlucose [Mass/volume] in Serum or PlasmaOrdered By: Melissa Coon on 93-55-7686Pqosnvf [Mass/Vol]Glucose [Mass/volume] in Serum or Lbzyrw83-501ViwcxsgrtGood Samaritan HospitalComment on above:ADA recommended reference rangeRandom Glucose Reference Range is dependent on time and content of last meal. Glucose of more than 200 mg/dL in a nonstressed, ambulatory subject supports the diagnosisof Diabetes Mellitus. Hematocrit Auto (Bld) [Volume fraction]Ordered By: Melissa Coon on 08-03-2024 Hematocrit (Bld) [Volume fraction]Hematocrit [Volume Fraction] of Blood by Automated count34.0-46.4FMercy Health Allen HospitalHemoglobin [Mass/volume] in BloodOrdered By: Melissa Coon on 89-04-6583Noyvxhgsqy (Bld) [Mass/Vol]Hemoglobin [Mass/volume] in Blood11.8-15.4FMercy Health Allen HospitalIron [Mass/volume] in Serum or PlasmaOrdered By: Melissa Coon on 08-03-2024 Iron [Mass/Vol]Iron [Mass/volume] in Serum or Jqdtvt35-741SwlcpoboiGood Samaritan HospitalIron and TIBC Profileon 08-03-2024% Iron Kseseejedi19.3 %Flo79-44 The [facility] Physician GroupComment on above:Performed By: #### URMACRERAT #### [facility] [address] [place] [address] USAIron [Mass/Vol]64 ug/aXEibpgu48-403Puc [facility] Physician GroupComment on above:Performed By: #### URMACRERAT #### [facility] [address] [place] [address] USATotal Iron Binding Njtjzrae537 ug/eRLaiugo940-289Svh [facility] Physician GroupComment on above:Performed By: #### URMACRERAT #### [facility] [address] [place] [address] USATransferrin [Mass/Vol]265 mg/iQLwbtfs280-982Nse [facility] Physician GroupComment on above:Performed By: #### URMACRERAT #### [facility] [address] [place] [address] USALeukocytes [#/volume] corrected for nucleated erythrocytes in Blood by Automated counOrdered By: Melissa Coon on 07-12-9156NGR corrected for nucl RBC Auto (Bld) [#/Vol]Leukocytes [#/volume] corrected for nucleated erythrocytes in Blood by Automated counHigh3.8-11.6FMercy Health Allen HospitalLuteinizing Hormoneon 93-64-0603Kelbgojusyc Jbjjfwv37.5 m[iU]/mLNormal.The [facility] Physician GroupComment on above:Result Comment: Adult Female Range Follicular phase 2.4 - 12.6 Ovulation phase 14.0 - 95.6 Luteal phase 1.0 - 11.4 Postmenopausal 7.7 - 58.5Performed By: #### LH, ESTRADIOL #### [facility] ,Lymphocytes Auto (Bld) [#/Vol]Ordered By: Melissa Coon on 38-67-2148Uzumzuxmmbu (Bld) [#/Vol]Lymphocytes [#/volume] in Blood by Automated count1.00-4.8[facility] HospitalLymphocytes/100 WBC Auto (Bld)Ordered By: Melissa Coon on 04-41-9487Rioinjzfoeh/100 WBC (Bld)Lymphocytes/100 leukocytes in Blood by Automated count.[facility] CenterH Auto (RBC) [Entitic mass] Ordered By: Melissa Coon on 79-46-4753GTS (RBC) [Entitic mass]MCH [Entitic mass] by Automated count24.7-34.3FMercy Health Allen HospitalMCHC Auto (RBC) [Mass/Vol]Ordered By: Melissa Coon on 51-13-8770EPGH (RBC) [Mass/Vol]MCHC [Mass/volume] by Automated count32.0-35.0[facility] HospitalMCV Auto (RBC) [Entitic vol]Ordered By: Melissa Coon on 82-32-1891IBC (RBC) [Entitic vol]MCV [Entitic volume] by Automated ecenm16-410MvtachhdoGood Samaritan HospitalMagnesiumon 56-21-7441Bfxorloza [Mass/Vol]1.9 mg/dLNormal1.9-2.7The [facility] Physician GroupComment on above:Performed By: #### URMACRERAT #### [place] [address] USAMagnesium [Mass/volume] in Serum or PlasmaOrdered By: Melissa Coon on 99-07-6328Vwnbmeyhj [Mass/Vol]Magnesium [Mass/volume] in Serum or Plasma1.9-2.7FMercy Health Allen HospitalMonocytes Auto (Bld) [#/Vol] Ordered By: Melissa Coon on 16-41-5034Bigrobegp (Bld) [#/Vol]Automated blood monocyte count0.0-0.8[facility] HospitalMonocytes/100 WBC Auto (Bld)Ordered By: Melissa Coon on 95-28-4735Lkxdldhxy/100 WBC (Bld)Automated monocyte %.[facility] HospitalNeutrophils Auto (Bld) [#/Vol] Ordered By: Melissa Coon on 48-84-7700Qjngccmuytb (Bld) [#/Vol]Neutrophils [#/volume] in Blood by Automated countHigh1.8-7.7FMercy Health Allen HospitalNeutrophils/100 WBC Auto (Bld)Ordered By: Melissa Coon on 08-03-2024 Neutrophils/100 WBC (Bld)Automated neutrophil %.[facility] HospitalNo Panel InformationOrdered By: Melissa Coon on 36-95-7739Wxgvxhaos GFR (CKD-EPI)> 60.0 mL/MinGood Samaritan HospitalPharmacy Creatinine Clearance (ChemN/AFMercy Health Allen HospitalNucleated erythrocytes [Presence] in Blood by Automated countOrdered By: Melissa Coon on 08-03-2024 Nucleated RBC Auto Ql (Bld)Nucleated erythrocytes [Presence] in Blood by Automated count0-0.5FMercy Health Allen HospitalParathyrin.intact [Mass/volume] in Serum or PlasmaOrdered By: Melissa Coon on 08-03-2024 Parathyrin.intact [Mass/Vol]Parathyrin.intact [Mass/volume] in Serum or Plasma [facility]itan HospitalParathyroid Hormone Intacton 08-03-2024 Parathyroid Hormone Mlejkk43.1 pg/tYPwqwhk96-31Gib [facility] Comment on above:Result Comment: PERFORMED BY: [place] [address] PATHOLOGIST SEASONER SYLVIA CRUZ M.D.Performed By: #### URMACREGINA #### [place] [address] USAPlatelet mean volume Auto (Bld) [Entitic vol]Ordered By: Melissa Coon on 29-57-3587Eyztdxlz mean volume (Bld) [Entitic vol]Platelet mean volume [Entitic volume] in Blood by Automated count6.3-10.7FMercy Health Allen HospitalPlatelets Auto (Bld) [#/Vol]Ordered By: Melissa Coon on 08-03-2024 Platelets (Bld) [#/Vol]Platelets [#/volume] in Blood by Automated matrv801-410 [facility] HospitalPotassium [Moles/volume] in Serum or Plasma Ordered By: Melissa Coon on 83-48-5671Korcehfwr [Moles/Vol]Potassium [Moles/volume] in Serum or Plasma3.5-5.1FMercy Health Allen HospitalProtein [Mass/volume] in Serum or PlasmaOrdered By: Melissa Coon on 33-93-9257Kqynwlc [Mass/Vol]Protein [Mass/volume] in Serum or PlasmaLow6.4-8.9[facility] HospitalRBC Auto (Bld) [#/Vol]Ordered By: Melissa Coon on 09-08-6895BOZ (Bld) [#/Vol]Erythrocytes [#/volume] in Blood by Automated count3.60-5.00 [facility] Cincinnatierum or plasma albumin/globulin mass ratio Ordered By: Melissa Coon on 56-20-5341Memftax/Globulin [Mass ratio]Serum or plasma albumin/globulin mass ratioSelect Medical Specialty Hospital - Cincinnatierum or plasma anion gap determinationOrdered By: Melissa Coon on 51-79-3980Mkkig gap [Moles/Vol]Serum or plasma anion gap determination6.0-15.0[facility] Cincinnatierum or plasma estradiol (E2) measurement (mass/volume)Ordered By: Melissa Coon on 19-57-8694L6 [Mass/Vol]Serum or plasma estradiol (E2) measurement (mass/volume).[facility] HospitalComment on above: Adult Female Range Follicular phase 12.5 - 166.0 Ovulation phase 85.8 - 498.0 Luteal phase 43.8 - 211.0 Postmenopausal <6.0 - 54.7 1st trimester 215.0 - >4300.0Roche ECLIA methodologyPerformed at: 3Jam - [facility] [address] [id number] Director: Ramirez Ca PhD, Phone: [phone] or plasma iron binding capacity measurement (mass/volume)Ordered By: Melissa Coon on 47-64-3671Ctsu binding capacity [Mass/Vol]Iron binding capacity [Mass/volume] in Serum or Ihaclu284-792NniaobwiySelect Medical Specialty Hospital - Cincinnatierum or plasma iron saturation measurement (mass fraction)Ordered By: Melissa Coon on 29-90-6805Byla saturation [Mass fraction]Iron saturation [Mass Fraction] in Serum or VeumkjYai67-17GzyqqamafSelect Medical Specialty Hospital - Cincinnatierum or plasma lutropin measurement (units/volume)Ordered By: Melissa Coon on 08-03-2024 Lutropin QnSerum or plasma lutropin measurement (units/volume).[facility] HospitalComment on above:Adult Female Range Follicular phase 2.4 - 12.6 Ovulation phase 14.0 - 95.6 Luteal phase 1.0 - 11.4 Postmenopausal 7.7 - 58.5Sodium [Moles/volume] in Serum or PlasmaOrdered By: Melissa Coon on 01-69-3374Vbmuhp [Moles/Vol]Sodium [Moles/volume] in Serum or Xrnelb499-729 [facility] HospitalThyroid Stimulating Hormoneon 78-04-1726SSR Qn 6.81 m[IU]/LHigh0.45-5.33The [facility] Physician GroupComment on above:Performed By: #### CMP #### [place] [address] USAThyrotropin [Units/volume] in Serum or PlasmaOrdered By: Melissa Coon on 03-46-5776SWU QnThyrotropin [Units/volume] in Serum or PlasmaHigh 0.45-5.33[facility] HospitalTransferrin [Mass/volume] in Serum or PlasmaOrdered By: Melissa Coon on 66-83-2616Fubtsfantrd [Mass/Vol]Transferrin [Mass/volume] in Serum or Nlpivk194-664LwxtvgklnGood Samaritan HospitalUrea nitrogen [Mass/volume] in Serum or PlasmaOrdered By: Melissa Coon on 08-03-2024 Urea nitrogen [Mass/Vol]Urea nitrogen [Mass/volume] in Serum or Plasma7-25 [facility] HospitalVitamin D 25 Hydroxy Totalon 65-44-4200Phtwwst D 25 Hydroxy Total51.5 ng/qXPlkdql47-519Xpj [facility] Physician GroupComment on above:Result Comment: VITAMIN D STATUS 25(OH)VITAMIN D RANGE (ng/mL) Deficient <20 Insufficient 20 to <30 Sufficient 30 to 100 Reference: Kirby GALVAN,Adonay NC, Shantelle HOLLOWAY, et al. Evaluation,treatment, and prevention of vitamin D deficiency; an Endocrine Society clinical practice guideline. JCEM. 2010; 96(7):1911-30. PERFORMED BY: [place] [address] PATHOLOGIST SEASONER SYLVIA CRUZ M.D.Performed By: #### CMP #### [address] Mann StreetVitamin D+Metabolites [Mass/volume] in Serum or Plasma Ordered By: Melissa Coon on 04-33-2413Erlecfv D+Metabolites [Mass/Vol]Vitamin D+Metabolites [Mass/volume] in Serum or Edejnc98-047PleylqlapGood Samaritan HospitalComment on above:VITAMIN D STATUS 25(OH)VITAMIN D RANGE (ng/mL) Deficient <20 Insufficient 20 to <19Caabyflaeo19 to 100Reference: Kirby MF,Adonay INMAN, Shantelle HOLLOWAY, et al. Evaluation,treatment, and prevention of vitamin D deficiency; an Endocrine Society clinical practice guideline. JCEM. 2010; 96 (7):1911-30.WBC Auto (Bld) [#/Vol]Ordered By: Melissa Coon on 61-53-4440ANX (Bld) [#/Vol]Leukocytes [#/volume] in Blood by Automated countHigh3.8-11.6FMercy Health Allen HospitalXR pre/post mri xrayon 19-68-6973SN pre/post mri xray [facility] [address] [place] [id number] MRI Report Signed Patient: Lupe Pickard MR#: [id number] : 1975 Acct:[id number] Age/Sex: 49 / F ADM Date: 06/18/24 Loc: [facility] Room: Type: [facility] Attending Dr: Willian Jensen MD Copies to: Willian Jensen MD Ordering Provider: Willian Jensen MD Date of Service: 06/18/24 MR/MR lumbar spine wo con: M48.062 ([id number]) XR/XR pre/post mri xray: M48.062 MRI Lumbar [...] Rao Gresham M.D.06/19/2024 10:29 AM Dictation Location: [place] [address] Transcribed By: [facility] 06/19/24 1029 Dictated By: Rao Gresham DO 06/19/24 1022 Signed By: 06/19/[address] [place] [address] Physician GroupHeart and Vascular Office/Clinic Noteon 86-42-8040Regwg and Vascular Office/Clinic NoteHeart and Vascular Office/Clinic Note Chief Complaint 6 mo f/u palps History of Present Illness Patient is a very pleasant 49-year-old obese nondiabetic female with a history of fibromyalgia, GERD, former smoker, quit more than 30 years ago, who was initially referred for palpitations. Patient was originally referred to [facility] with Dr. Benjamin; at her initial appointment, she provided several printouts including a 30-day event monitor which took place on 06/15/2022 which wasabnormal which demonstrated a couple events of ventricular tachycardia 1 for 3 beats and 145 beats at 217 bpm another episode of narrow complex tachycardia suggestive of atrial tachycardia at a rate of 130 beats a minute. In addition echocardiogram dated 05/06/2020 showed an EF of 55 to 60%, stage Idiastolic dysfunction unable to quantitate RVSP. She had issues with hypertension, as well. Her prior cardiac workup is listed below. She was seen by Dr. Herman in June 2023. She presents today with no new symptoms. At the moment of my encounter, reports no feelings of racing heart or palpitations. She was on Ozempic for a while, and after initiation, her palpitations didrecur and disappear after discontinuation of that. Review [...] of anesthetic substance, therapeutic, caudal, continuous (10/10/2023), Injectionof therapeutic forman (more content not included)...Normal [facility] HospitalComment on above:Result Comment: Electronically Signed By: Trudy PELAYO, Eldon Nguyen\.chanel\Date and Time Signed: 05/22/24 10:40 EST Influenza virus B Ag [Presence] in Upper respiratory specimen by Rapid immunoassayon 01-77-6533NOJHL Ag IA.rapid Ql (Nph)Influenza virus B Ag [Presence] in Upper respiratory specimen by Rapid immunoassayGood Samaritan HospitalNo Panel Informationon 47-08-2085Kzsqnbqbd Type A (Rapid)Negative [facility] HospitalPO SARS CoV-2 AntigenNegativeGood Samaritan HospitalNo Panel InformationOrdered By: Selina Lomas on 05-14-2024 Quick Strep (POC)[facility] HospitalQuick Strep (POC)[facility] HospitalThyrotropin [Units/volume] in Serum or PlasmaOrdered By: Kenyetta Dove on 13-14-2598FDV Qn4.01 m[IU]/L0.45-5.33[facility] HospitalThyroxine (T4) free [Mass/volume] in Serum or PlasmaOrdered By: Kenyetta Dove on 98-44-5592Gbdi T4 [Mass/Vol]1.10 ng/dL0.61-1.12[facility]itan HospitalTriiodothyronine (T3) Free [Mass/volume] in Serum or PlasmaOrdered By: Kenyetta Dove on 24-81-3015Uyct T3 [Mass/Vol]3.20 pg/mL2.50-3.90[facility] HospitalAlanine aminotransferase [Enzymatic activity/volume] in Serum or PlasmaOrdered By: Dalia Mar on 33-54-8994TCX [Catalytic activity/Vol]12 U/L7-52[facility]itan HospitalAlbumin [Mass/volume] in Serum or Plasma by Bromocresol green (BCG) dye binding methoOrdered By: Dalia Mar on 74-77-4593Stdfiqf BCG dye [Mass/Vol]3.8 g/dL3.5-5.7FMercy Health Allen HospitalAlkaline phosphatase [Enzymatic activity/volume] in Serum or PlasmaOrdered By: Dalia Mar on 48-44-2514BXG [Catalytic activity/Vol]52 U/P69-490WuuedtaabGood Samaritan HospitalAspartate aminotransferase [Enzymatic activity/volume] in Serum or PlasmaOrdered By: Dalia Mar on 58-76-2083BKK [Catalytic activity/Vol]11 U/KJem94-84RqowjkizlGood Samaritan HospitalBasophils Auto (Bld) [#/Vol]Ordered By: Dalia Mar on 38-08-1797Ngsophznz (Bld) [#/Vol] 0.0 10*3/uL0.0-0.2FMercy Health Allen HospitalBasophils/100 WBC Auto (Bld) Ordered By: Dalia Mar on 32-92-5771Ebjkrbmcy/100 WBC (Bld)0.5 %.[facility]itan HospitalBilirubin Test strip Ql (U)Ordered By: Daliaalexander Cavanaughdevora on 13-97-0361Samgmjmlm Ql (U)NegativeNegativeGood Samaritan Hospital Bilirubin.total [Mass/volume] in Serum or PlasmaOrdered By: Dalia Mar on 63-13-8274Quijioprd [Mass/Vol]0.5 mg/dL0.3-1.0[facility] CBC W Auto Differential panel (Bld)on 68-81-4123Jegxrrqpl (Bld) [#/Vol]0.0 10*3/uL0.0 - 0.2 10*3/uLNOMS HealthcareBasophils/100 WBC Manual cnt (Syn fld)0.5 %.[facility] HealthcareEosinophils (Bld) [#/Vol]0.1 10*3/uL0.0 - 0.45 10*3/uLNOMS HealthcareEosinophils/100 WBC Manual cnt (Syn fld)1.3 %.[facility] Erythrocyte distribution width (RBC) [Ratio]14.6 %11.9 - 15.3 %[facility] Hematocrit (Bld) [Volume fraction]39.2 %34.0 - 46.4 %University HospitalHemoglobin (Bld) [Mass/Vol]13.3 g/dL11.8 - 15.4 g/dLCENTRAL VALLEY MEDICAL [facility]ENTER HealthcareLymphocytes (Bld) [#/Vol]2.6 10*3/uL1.00 - 4.8 10*3/uLNOMS HealthcareLymphocytes/100 WBC Manual cnt (Syn fld)28.1 %.University HospitalMCH (RBC) [Entitic mass]30.7 pg24.7 - 34.3 pg University HospitalMCHC (RBC) [Mass/Vol]34.0 g/dL32.0 - 35.0 g/dLUniversity HospitalMCV (RBC) [Entitic vol]90.1 fL80 - 100 fLNOAR HealthcareMonocytes (Bld) [#/Vol]0.4 10*3/uL0.0 - 0.8 10*3/uLNOMS HealthcareMonocytes+Macrophages/100 WBC Manual cnt (Syn fld)4.8 %.NOMS HealthcareNeutrophils (Bld) [#/Vol]6.0 10*3/uL1.8 - 7.7 10*3/uLNOMS HealthcareNeutrophils/100 WBC Manual cnt (Syn fld)65.3 %.NOMS HealthcareNRBC0.1 /100{WBC}0 - 0.5 /100{WBC}NOMS HealthcarePlatelet mean volume (Bld) [Entitic vol]8.7 fL6.3 - 10.7 fLNOMS HealthcarePlatelets (Bld) [#/Vol]288 10*3/uL150 - 450 10*3/uLNOMS HealthcareRBC LM.HPF (Urine sed) [#/Area]4.34 /[HPF]3.60 - 5.00NOMS HealthcareWBC (Bld) [#/Vol]9.2 10*3/uL3.8 - 11.6 10*3/uL NOMS HealthcareWBC LM.HPF (Urine sed) [#/Area]9.2 10*3/uL3.8 - 11.6 10*3/uLNOMS HealthcareNOMS HealthcareCalcium [Mass/volume] in Serum or PlasmaOrdered By: Dalia Mar on 77-70-5748Brloccf [Mass/Vol]8.5 mg/dLLow8.6-10.3FMercy Health Allen HospitalCarbon dioxide, total [Moles/volume] in Serum or Plasma Ordered By: Dalia Mar on 72-87-3249ZY5 [Moles/Vol]27.8 mmol/L21.0-31.0 [facility] HospitalChloride [Moles/volume] in Serum or Plasma Ordered By: Dalia Mar on 29-63-1006Opdkuqoq [Moles/Vol]104 mmol/L98-107 [facility] HospitalCholesterol [Mass/volume] in Serum or Plasma Ordered By: Dalia Mar on 48-94-3812Xewqlwouccs [Mass/Vol]163 mg/xM782-073 [facility] HospitalComment on above:Chol less than 200 mg/dl low riskChol 201-239 mg/dl borderline riskChol 240 mg/dl and greater high risk Cholesterol in LDL Calc [Mass/Vol]Ordered By: Dalia Mar on 02-01-2024 Cholesterol in LDL [Mass/Vol]88 mg/dL0-100[facility] Comment on above:LDL ATP III CLASSIFICATIONLDL less than 100 mg/dL OptimalLDL 100-129 mg/dL Near or above awgafcfPUY350-711 mg/dL Borderline highLDL 160-189 mg/dL HighLDL greater than 189 mg/dL Very highCholesterol in VLDL Calc [Mass/Vol]Ordered By: Dalia Mar on 61-87-1003Smpfhdabwzh in VLDL [Mass/Vol] 35 mg/dLGood Samaritan HospitalColor Auto (U)Ordered By: Dalia Mar on 41-98-6789Lwqtj (U)Light-yellowYellowGood Samaritan Hospital Creatinine [Mass/volume] in Serum or PlasmaOrdered By: Dalia Mar on 30-29-7191Mkzwicwilz [Mass/Vol]0.50 mg/dLLow0.60-1.20[facility] HospitalCreatinine [Mass/volume] in UrineOrdered By: Dalia Mar on 02-01-2024 Creatinine (U) [Mass/Vol]74.00 mg/dLGood Samaritan HospitalComment on above:No reference range establishedEosinophils Auto (Bld) [#/Vol]Ordered By: Dalia Mar on 01-97-3812Whzgouahtkx (Bld) [#/Vol]0.1 10*3/uL0.0-0.45[facility]itan HospitalEosinophils/100 WBC Auto (Bld)Ordered By: Dalia Mar on 85-28-1144Cvstumqzkwd/100 WBC (Bld)1.3 %.[facility] Erythrocyte distribution width Auto (RBC) [Ratio]Ordered By: Dalia Mar on 28-68-2659Oetyueiasuy distribution width (RBC) [Ratio]14.6 %11.9-15.3FMercy Health Allen HospitalFerritin [Mass/volume] in Serum or PlasmaOrdered By: Dalia Mar on 95-10-1869Zrycxdkf [Mass/Vol]52.8 ng/mL11.0-306.8[facility]itan HospitalGlobulin Calc (S) [Mass/Vol]Ordered By: Dalia Mar on 77-94-9619Isltgxim (S) [Mass/Vol]2.2 g/dLGood Samaritan Hospital Glucose [Mass/volume] in Serum or PlasmaOrdered By: Dalia Mar on 02-01-2024 Glucose [Mass/Vol]108 mg/iUEkbf74-092OypsvooofGood Samaritan HospitalComment on above:ADA recommended reference rangeRandom Glucose Reference Range is dependent on time and content of last meal. Glucose of more than 200 mg/dL in a nonstressed, ambulatory subject supports the diagnosisof Diabetes Mellitus. Glucose [Mass/volume] in Urine by Test stripOrdered By: Dalia Mar on 06-04-8669Axlyhof Test strip (U) [Mass/Vol]Normal mg/dLNormalGood Samaritan HospitalHematocrit Auto (Bld) [Volume fraction]Ordered By: Dalia Mar on 46-55-0444Lpvilnclfn (Bld) [Volume fraction]39.2 %34.0-46.4FMercy Health Allen HospitalHemoglobin Test strip Ql (U)Ordered By: Dalia Mar on 55-10-5069Lwfvtirjte Ql (U)NegativeNegativeGood Samaritan Hospital Hemoglobin [Mass/volume] in BloodOrdered By: Dalia Mar on 02-01-2024 Hemoglobin (Bld) [Mass/Vol]13.3 g/dL11.8-15.4FMercy Health Allen Hospital Iron [Mass/volume] in Serum or PlasmaOrdered By: Dalia Mar on 47-66-8336Uvmg [Mass/Vol]88 ug/uY12-564RayelcfhoGood Samaritan HospitalIron binding capacity [Mass/volume] in Serum or PlasmaOrdered By: Dalia Mar on 79-57-8860Paqq binding capacity [Mass/Vol]333 ug/yB208-248HqcljteveGood Samaritan HospitalIron saturation [Mass Fraction] in Serum or PlasmaOrdered By: Dalia Mar on 68-57-1422Yaax saturation [Mass fraction]26.4 %20-50[facility]itan HospitalKetones Test strip Ql (U)Ordered By: Dalia Mar on 30-91-8862Dvudryl Ql (U)NegativeNegativeGood Samaritan HospitalLeukocyte esterase [Presence] in Urine by Test stripOrdered By: Dalia Mar on 02-01-2024 Leukocyte esterase Test strip Ql (U)NegativeNegativeGood Samaritan HospitalLeukocytes [#/volume] corrected for nucleated erythrocytes in Blood by Automated counOrdered By: Dalia Mar on 39-42-4730ADZ corrected for nucl RBC Auto (Bld) [#/Vol]9.2 10*3/uL3.8-11.6FMercy Health Allen Hospital Lymphocytes Auto (Bld) [#/Vol]Ordered By: Dalia Mar on 03-36-4653Pubdterultd (Bld) [#/Vol]2.6 10*3/uL1.00-4.8[facility] Lymphocytes/100 WBC Auto (Bld)Ordered By: Dalia Mar on 02-01-2024 Lymphocytes/100 WBC (Bld)28.1 %.[facility] Auto (RBC) [Entitic mass]Ordered By: Dalia Mar on 45-21-8339QKA (RBC) [Entitic mass] 30.7 pg24.7-34.3FSelect Medical Specialty Hospital - Boardman, IncHC Auto (RBC) [Mass/Vol] Ordered By: Dalia Mar on 15-18-8703EWTT (RBC) [Mass/Vol]34.0 g/dL32.0-35.0 [facility] HospitalMCV Auto (RBC) [Entitic vol]Ordered By: Dalia Mar on 47-49-5257TIY (RBC) [Entitic vol]90.1 eU66-735DajluckfdGood Samaritan HospitalMicroalbumin [Mass/volume] in UrineOrdered By: Dalia Mar on 69-85-1189Ccoawht DL <= 20 mg/L (U) [Mass/Vol]mg/dL0.0-1.8[facility] HospitalMicroalbumin/Creatinine ratio panel (U)on 55-52-6891Swtxzpt [Mass/Vol]g/dL0.0 - 1.8NOMS HealthcareCreatinine spec 2 (U) [Mass/Vol]74.00 mg/dLUniversity HospitalComment on above:No reference range established MICROALBUMIN/CREATININE RATIONot performed0.0 - 30.0Formerly [facility]em[facility]le HospitalMonocytes Auto (Bld) [#/Vol]Ordered By: Dalia Mar on 02-01-2024 Monocytes (Bld) [#/Vol]0.4 10*3/uL0.0-0.8[facility] Monocytes/100 WBC Auto (Bld)Ordered By: Dalia Mar on 59-24-8954Yrdetopyw/100 WBC (Bld)4.8 %.[facility]itan HospitalNeutrophils Auto (Bld) [#/Vol] Ordered By: Dalia Mar on 23-88-7863Oltpqabxtug (Bld) [#/Vol]6.0 10*3/uL 1.8-7.7FMercy Health Allen HospitalNeutrophils/100 WBC Auto (Bld)Ordered By: Dalia Mar on 90-12-3769Yjylsbxkcse/100 WBC (Bld)65.3 %.[facility]itan HospitalNitrite Test strip Ql (U)Ordered By: Dalia Mar on 98-94-7839Azvukgw Ql (U)NegativeNegativeGood Samaritan HospitalNo Panel InformationOrdered By: Dalia Mar on 02-44-1844Zzoquurbu GFR (CKD-EPI)> 60.0 mL/MinGood Samaritan HospitalPharmacy Creatinine Clearance (Chem N/AFMercy Health Allen HospitalNucleated erythrocytes [Presence] in Blood by Automated countOrdered By: Dalia Mar on 68-86-2404Uoxlamoiq RBC Auto Ql (Bld)0.1 /100{WBC}0-0.5FMercy Health Allen HospitalPlatelet mean volume Auto (Bld) [Entitic vol]Ordered By: Dalia Mar on 12-67-3860Tbvlzayc mean volume (Bld) [Entitic vol]8.7 fL6.3-10.7FMercy Health Allen Hospital Platelets Auto (Bld) [#/Vol]Ordered By: Dalia Mar on 77-46-3344Jrpvbjpnu (Bld) [#/Vol]288 10*3/vT379-849NxowfrjonGood Samaritan HospitalPotassium [Moles/volume] in Serum or PlasmaOrdered By: Dalia Mar on 02-01-2024 Potassium [Moles/Vol]4.3 mmol/L3.5-5.1FMercy Health Allen HospitalProtein Test strip (U) [Mass/Vol]Ordered By: Dalia Mar on 47-42-8163Yxjaiav (U) [Mass/Vol]NegativeNegativeGood Samaritan HospitalProtein [Mass/volume] in Serum or PlasmaOrdered By: Dalia Mar on 63-58-4076Ncvoqui [Mass/Vol]6.0 g/dLLow6.4-8.9[facility] HospitalRBC Auto (Bld) [#/Vol]Ordered By: Dalia Mar on 80-41-6789YVB (Bld) [#/Vol]4.34 10*6/uL3.60-5.00[facility] Cincinnatierum or plasma albumin/globulin mass ratioOrdered By: Dalia Mar on 55-93-0396Rsconnn/Globulin [Mass ratio]1.7 {ratio}[facility] Cincinnatierum or plasma anion gap determinationOrdered By: Dalia Mar on [id number] gap [Moles/Vol]10.5 mmol/L6.0-15.0[facility]atierum or plasma high density lipoprotein (HDL) cholesterol measurementOrdered By: Dalia Mar on [id number] in HDL [Mass/Vol] 40 mg/eY85-53ZzduvgirrGood Samaritan HospitalComment on above:HDL CHOL ATP-III CLASSIFICATION Cardiovascular RiskHDL > or equal to 60 mg/dL LOWHDL < 40 mg/dL HIGHSerum or plasma total cholesterol/high density lipoprotein (HDL) cholesterol mass ratOrdered By: Dalia Mar on [id number].total/Cholesterol in HDL [Mass ratio]4.1 {ratio}<5.0[facility] Cincinnatiodium [Moles/volume] in Serum or PlasmaOrdered By: Dalia Mar on 22-89-4367Wqvobb [Moles/Vol]138 mmol/T925-943SqyuwpussSelect Medical Specialty Hospital - Cincinnatipecific gravity Test strip (U) [Rel density]Ordered By: Dalia Mar on 02-16-7192Iwrstrrz gravity (U) [Rel density]1.0161.001-1.030[facility] Thyrotropin [Units/volume] in Serum or PlasmaOrdered By: Dalia Mar on 73-24-2921VXK Qn1.71 m[IU]/L0.45-5.33[facility] Transferrin [Mass/volume] in Serum or PlasmaOrdered By: Dalia Mar on 49-61-4653Gkwdifhdwdu [Mass/Vol]238 mg/mF519-949HpbkfrluiGood Samaritan HospitalTriglyceride [Mass/volume] in Serum or PlasmaOrdered By: Dalia Mar on 45-78-7117Sjjmapycshuc [Mass/Vol]176 mg/dLHigh0-149[facility] HospitalComment on above:TRIG ATP III CLASSIFICATIONTRIG less than 150 mg/dL NormalTRIG 150-199 mg/dL Borderline highTRIG 200-500 mg/dL High TRIG greater than 500 mg/dL Very highStandard traceable to the Center for Disease Conrtrol and Prevention (CDC) test method.Urea nitrogen [Mass/volume] in Serum or Plasma Ordered By: Dalia Mar on 16-96-4452Wfaj nitrogen [Mass/Vol]10 mg/dL7-25 [facility] HospitalUrinalysis, manual onlyon 72-82-6014Rfldxlakyn (U)ClearClearNOMS HealthcareBILIRUBIN,URINENegativeNegativeNOMS HealthcareColor (U)Light-YellowYellowNOMS HealthcareGlucose Ql (U)NormalNormalNOMS Healthcare Ketones Ql (U)NegativeNegativeNOMS HealthcareLeukocyte esterase Test strip Ql (U)NegativeNegativeNOMS HealthcareNITRITE,URINENegativeNegativeNOMS Healthcare OCCULT BLOOD,URINENegativeNegativeNOMS HealthcarepH (U)6.0 [pH]5.0 - 9.0NOMS HealthcarePROTEIN,URINENegativeNegativeNOMS HealthcareSPECIFICY GRAVITY,URINE 1.0161.001 - 1.030NOMS HealthcareUROBILINOGEN,URINENormalNormalNOMS Healthcare Name Collection Type:: Clean-Voided MidstreamKettering Health Behavioral Medical CenterUrine appearanceOrdered By: Dalia Mar on 69-71-8837Gisgplygjd (U)ClearClear [facility] HospitalUrine microalbumin/creatinine mass ratioOrdered By: Dalia Mar on 53-85-2106Shznfoy/Creatinine DL <= 20 mg/L (U) [Mass ratio]TNPGood Samaritan HospitalComment on above:Test not performed Urobilinogen Test strip (U) [Mass/Vol]Ordered By: Dalia Mar on 02-01-2024 Urobilinogen (U) [Mass/Vol]Normal mg/dLNormalGood [facility]aritan Hospital WBC Auto (Bld) [#/Vol]Ordered By: Dalia Mar on 12-28-2219VHL (Bld) [#/Vol] 9.2 10*3/uL3.8-11.6FMercy Health Allen HospitalpH Test strip (U)Ordered By: Dalia Mar on 96-81-5760yE (U)6.0 [pH]5.0-9.0[facility] HospitalNo Panel InformationOrdered By: Selina Lomas on 23-84-6625QBSBH Antigen (POC) [facility] HospitalFerritin [Mass/volume] in Serum or Plasma Ordered By: Melissa Singh on 56-73-5310Kjppybkq [Mass/Vol]180.6 ng/mL11.0-306.8 [facility] HospitalFolate [Mass/volume] in Serum or PlasmaOrdered By: Melissa Singh on 73-12-2704Cxskmx [Mass/Vol]43.0 ng/mL>5.9[facility] HospitalComment on above:Folate reference range: >5.9 ng/mlThe WHO technical consultation on folate and vitamin t01pufdvcsruyzi has determined that folate concentrations lessthan 4 ng/ml are considered deficient.Iron [Mass/volume] in Serum or PlasmaOrdered By: Melissa Singh on 64-44-0088Pryy [Mass/Vol]100 ug/cQ89-656XvsjkskrsGood Samaritan HospitalMagnesium [Mass/volume] in Serum or PlasmaOrdered By: Melissa Singh on 07-28-2023 Magnesium [Mass/Vol]2.0 mg/dL1.9-2.7FMercy Health Allen HospitalThyrotropin [Units/volume] in Serum or PlasmaOrdered By: Melissa Singh on 87-87-9824TCY Qn 1.20 m[IU]/L0.45-5.33[facility] HospitalVitamin B12 ser/plas Ordered By: Melissa Singh on 43-21-9570Xgypzzcmk (Vitamin B12) [Mass/Vol]432 pg/gF702-569NsiwztzaeGood Samaritan HospitalVitamin D+Metabolites [Mass/volume] in Serum or PlasmaOrdered By: Melissa Singh on 80-49-5070Lvkcsuv D+Metabolites [Mass/Vol]32.9 ng/yN75-583NfvkjgsrtGood Samaritan HospitalComment on above: VITAMIN D STATUS 25(OH)VITAMIN D RANGE (ng/mL) Deficient <20 Insufficient 20 to <64Rbvwiaplvd46 to 100Reference: Kirby MF,Adonay INMAN, Shantelle HOLLOWAY, et al. Evaluation,treatment, and prevention of vitamin D deficiency; an Endocrine Society clinical practice guideline. JCEM. 2010; 96(7):1911-30.Activated partial thromboplastin time (aPTT) in platelet poor plasma by coagulation a Ordered By: Jorge Jarrett on 58-77-8833bRSN Coag (PPP) [Time]29.6 s25.1-36.5 [facility] HospitalComment on above:A hematocrit value greater than 55% may lead to inaccurate results in coagulation testing. Patientshaving hematocrit values >55% require a special collection tube for coagulation studies. Please contact the laboratory at [phone] for redraw instructions. Bacterial blood cultureOrdered By: Jorge Jarrett on 47-02-3208Dtguelcz identified Cx Nom (Bld)NO GROWTH 5 DAYSGood Samaritan HospitalBacteria identified Cx Nom (Bld)NO GROWTH 5 DAYSGood Samaritan Hospital Basophils Auto (Bld) [#/Vol]Ordered By: Jorge Jarrett on 85-75-5864Dcjfhrjnb (Bld) [#/Vol]0.1 10*3/uL0.0-0.2FMercy Health Allen HospitalBasophils/100 WBC Auto (Bld)Ordered By: Jorge Jarrett on 25-34-0030Nvlaahwrs/100 WBC (Bld)0.5 % .[facility] HospitalCOVID CepheidOrdered By: Jorge Jarrett on 16-38-5546YCBB-CoV-2 (COVID-19) Ab IA QlNegativeNegativeGood Samaritan HospitalComment on above:This is a duplicate Cepheid Xpert Xpress CoV- 2/Flu/RSV Plus RNA by RT-PCR result to be used for statistical tracking purpose only.SARS-CoV-2 (COVID-19) RNA CESAR+probe Ql (Unsp spec)[facility] CincinnatiARS-CoV-2 (COVID-19) RNA CESAR+probe Ql (Unsp spec)[facility] HospitalCalcium [Mass/volume] in Serum or PlasmaOrdered By: Jorge Jarrett on 65-63-8083Znxqvqz [Mass/Vol]8.7 mg/dL8.6-10.3FMercy Health Allen HospitalCarbon dioxide, total [Moles/volume] in Serum or PlasmaOrdered By: Jorge Jarrett on 77-52-5419AC0 [Moles/Vol]24.1 mmol/L21.0-31.0[facility] HospitalChloride [Moles/volume] in Serum or PlasmaOrdered By: Jorge Jarrett on 28-33-3915Obaepmyy [Moles/Vol]104 mmol/W51-627NdgdwvakfGood Samaritan HospitalCreatine kinase [Enzymatic activity/volume] in Serum or PlasmaOrdered By: Jorge Jarrett on 73-67-6753WI [Catalytic activity/Vol]37 U/M59-974JmizsqvzhGood Samaritan HospitalCreatinine [Mass/volume] in Serum or PlasmaOrdered By: Jorge Jarrett on 23-28-3993Rujknebxnj [Mass/Vol]0.52 mg/dL0.60-1.20[facility] HospitalEosinophils Auto (Bld) [#/Vol]Ordered By: Jorge Jarrett on 61-89-1029Dutezceklvj (Bld) [#/Vol]0.0 10*3/uL0.0-0.45[facility] HospitalEosinophils/100 WBC Auto (Bld)Ordered By: Jorge Jarrett on 55-21-7106Fkxpbyaexkv/100 WBC (Bld)0.3 %.[facility] Erythrocyte distribution width Auto (RBC) [Ratio]Ordered By: Jorge Jarrett on 43-85-6395Wibnequmbgo distribution width (RBC) [Ratio]14.9 %11.9-15.3FMercy Health Allen HospitalGlucose [Mass/volume] in Serum or PlasmaOrdered By: Jorge Jarrett on 83-73-1283Xwhijkt [Mass/Vol]97 mg/fU82-853KuwyotwrsGood Samaritan HospitalComment on above:ADA recommended reference rangeRandom Glucose Reference Range is dependent on time and content of last meal. Glucose of more than 200 mg/dL in a nonstressed, ambulatory subject supports the diagnosisof Diabetes Mellitus.Hematocrit Auto (Bld) [Volume fraction]Ordered By: Jorge Jarrett on 40-88-2661Pbihgnjmsj (Bld) [Volume fraction]41.0 %34.0-46.4FMercy Health Allen HospitalHemoglobin [Mass/volume] in BloodOrdered By: Jorge Jarrett on 26-24-8799Kgrstmiczo (Bld) [Mass/Vol]13.8 g/dL11.8-15.4FMercy Health Allen HospitalINR in Platelet poor plasma by Coagulation assayOrdered By: Jorge Jarrett on 41-23-8448ATA Coag (PPP) [Relative time]1.0 {INR}[facility] HospitalComment on above:INR Therapeutic Range A) Pre- and Peroperative OAT started two weeks before surgery. NOT HIP SURGERY: 1.5 - 2.5 HIP SURGERY: 2 - 3B) Primary and secondary prevention of venous THROMBOSIS: 2 - 3C) Active venous thrombosis, pulmonary embolismand prevention of recurrent venous thrombosis: 2 - 3D) Prevention of arterial thromboembolismincluding patients with mechanical heart valves: 3 - 4.5Lactate [Moles/volume] in Serum or PlasmaOrdered By: Jorge Jarrett on 77-67-1789Eapcwph [Moles/Vol]1.3 mmol/L 0.5-2.2FMercy Health Allen HospitalLeukocytes [#/volume] corrected for nucleated erythrocytes in Blood by Automated counOrdered By: Jorge Jarrett on 16-21-4041KOF corrected for nucl RBC Auto (Bld) [#/Vol]9.9 10*3/uL3.8-11.6 [facility] HospitalLymphocytes Auto (Bld) [#/Vol]Ordered By: Jorge Jarrett on 93-56-1462Wmbjonofdgq (Bld) [#/Vol]0.9 10*3/uL1.00-4.8[facility] HospitalLymphocytes/100 WBC Auto (Bld)Ordered By: Jorge Jarrett on 99-40-9684Xzbtuooaukf/100 WBC (Bld)8.7 %.[facility] Auto (RBC) [Entitic mass]Ordered By: Jorge Jarrett on 49-40-0098IEM (RBC) [Entitic mass]29.7 pg24.7-34.3FMercy Health Allen HospitalMCHC Auto (RBC) [Mass/Vol]Ordered By: Jorge Jarrett on 45-50-4504YOOO (RBC) [Mass/Vol]33.7 g/dL 32.0-35.0[facility] HospitalMCV Auto (RBC) [Entitic vol]Ordered By: Jorge Jarrett on 55-93-4898UCJ (RBC) [Entitic vol]88.2 iN39-055IwtgrwlptGood Samaritan HospitalMonocyte distribution width [Entitic volume] in Blood by AutomatedOrdered By: Jorge Jarrett on 65-58-5547Hgkxqgfu distribution width Auto (Bld) [Entitic vol]27.10 %0.00-20.00[facility] HospitalComment on above:For adults in ED, MDW > 20.0 may be associated with a higher risk of sepsis during the first 12 hrs of hospital admissionMonocytes Auto (Bld) [#/Vol] Ordered By: Jorge Jarrett on 40-49-8620Gpgyyxvce (Bld) [#/Vol]0.6 10*3/uL0.0-0.8 [facility] HospitalMonocytes/100 WBC Auto (Bld)Ordered By: Jorge Jarrett on 24-77-3751Phxjahwzn/100 WBC (Bld)6.2 %.[facility] HospitalNatriuretic peptide B [Mass/Vol]Ordered By: Jorge Jarrett on 07-22-2023 Natriuretic peptide B (Bld) [Mass/Vol]67.0 pg/mL5-100[facility] HospitalNeutrophils Auto (Bld) [#/Vol]Ordered By: Jorge Jarrett on 07-22-2023 Neutrophils (Bld) [#/Vol]8.3 10*3/uL1.8-7.7FMercy Health Allen Hospital Neutrophils/100 WBC Auto (Bld)Ordered By: Jorge Jarrett on 07-22-2023 Neutrophils/100 WBC (Bld)84.3 %.[facility] HospitalNo Panel InformationOrdered By: Jorge Jarrett on 77-58-9788Nbbydhots GFR (CKD-EPI)> 60.0 mL/MinGood Samaritan HospitalPharmacy Creatinine Clearance (Nfki451.90 [facility] HospitalNucleated erythrocytes [Presence] in Blood by Automated countOrdered By: Jorge Jarrett on 52-85-4334Auhjsjrzm RBC Auto Ql (Bld) 0.0 /100{WBC}0-0.5FMercy Health Allen HospitalPlatelet mean volume Auto (Bld) [Entitic vol]Ordered By: Jorge Jarrett on 20-49-5994Ufeipqrm mean volume (Bld) [Entitic vol]7.7 fL6.3-10.7FMercy Health Allen HospitalPlatelets Auto (Bld) [#/Vol]Ordered By: Jorge Jarrett on 68-10-3581Toqomzrya (Bld) [#/Vol]347 10*3/qO533-015CmgpohvmbGood Samaritan HospitalPotassium [Moles/volume] in Serum or PlasmaOrdered By: Jorge Jarrett on 71-73-4660Pcupkggwr [Moles/Vol]3.6 mmol/L 3.5-5.1FMercy Health Allen HospitalProthrombin time (PT)Ordered By: Jorge Jarrett on 67-42-3166ZN Coag (PPP) [Time]11.6 s9.0-12.9[facility] HospitalComment on above:A hematocrit value greater than 55% may lead to inaccurate results in coagulation testing. Patientshaving hematocrit values >55% require a special collection tube for coagulation studies. Please contact the laboratory at [phone] for redraw instructions.RBC Auto (Bld) [#/Vol]Ordered By: Jorge Jarrett on 49-76-6556FVN (Bld) [#/Vol]4.64 10*6/uL3.60-5.00[facility] Cincinnatierum or plasma anion gap determinationOrdered By: Jorge Jarrett on 51-83-0216Kossx gap [Moles/Vol]12.5 mmol/L6.0-15.0[facility]innatiodium [Moles/volume] in Serum or PlasmaOrdered By: Jorge Jarrett on 02-87-7919Lgzxpk [Moles/Vol]137 mmol/E039-720YsggvuumaGood Samaritan HospitalTroponin I.cardiac [Mass/volume] in Serum or Plasma by Detection limit <= 0.01 ng/Ordered By: Jorge Jarrett on 06-10-0382Gbfdrkzd I.cardiac DL <= 0.01 ng/mL [Mass/Vol]< 2.3 pg/mL0.0-15.0[facility] HospitalUrea nitrogen [Mass/volume] in Serum or PlasmaOrdered By: Jorge Jarrett on 07-22-2023 Urea nitrogen [Mass/Vol]6 mg/dL7-25[facility] HospitalWBC Auto (Bld) [#/Vol]Ordered By: Jorge Jarrett on 82-62-6403EMH (Bld) [#/Vol]9.9 10*3/uL 3.8-11.6FMercy Health Allen HospitalCNPNon 93-75-7275POFZVdmpvxcov (RHEUMN) LUPE PICKARD ([id number]) 1975 F Date Time Provider Department 07/08/23 [...] times daily. - FE FUMARATE/CA CARB/VITAMIN D3 (IACKNDQ-PSTR4-QTKRCZD FUMARATE ORAL) Take by mouth. - Multivitamin [...] 01/18/2014 Encounter Status:Closed by STEPHIE BRAMBILA on 07/08/23[facility] Quick Testingon 05-58-9113ZpyzbhLdhycwypJhkkqRadiantBlue Technologies Other Quick Strepon 07-08-2023S. pyogenes Org specific cx Ql (Throat)PositiveNortRadiantBlue Technologies Other Yadi [employer] Other CNPNarsenio 21-77-4655VWPFNvyscvxzq (ADRY) LUPE PICKARD ([id number]) 1975 F Date Time Provider Department 05/24/23 [...] times daily. - FE FUMARATE/CA CARB/VITAMIN D3 (OTTRWRK-MTBZ3-GWJZMGG FUMARATE ORAL) Take by mouth. - Multivitamin [...] 01/18/2014 Encounter Status:Closed by STEPHIE BRAMBILA on 05/24/23NormalCVeronica Ville [address] SerPl-ncon 69-63-1805Ubktpaocur C3 [Mass/Vol]128 mg/dL Ptxzyl13-150HqcmyejpaMercy Health Fairfield Hospital on above:Order Comment: Specimen Type: BLOOD SPECIMEN Ordering Facility: [facility] Address: [address] [place], [place] [address]Performed By: #### [email or web address] #### [employer] CLIA [id number] [address] [place], [place] [address]T1 SerP-[facility] Hospitalon 75-44-2019Nopbgtxkqw C4 [Mass/Vol]32 mg/pMJncbth98-76OhjmwdekuMercy Health Fairfield Hospital on above:Order Comment: Specimen Type: BLOOD SPECIMEN Ordering Facility[facility] Address: [address] [place], [place] [address]Performed By: #### [email or web address] #### [employer] [id number] [address] [place], [place] [address]OBP W Auto Differential panel (Bld)on 05-19-2023 Basophils (Bld) [#/Vol]0.03 10*3/uLNormal<0.11CSumma Health [facility] on above:Order Comment: Specimen Type: BLOOD SPECIMEN Ordering Facility[facility] Address: [address] [place], [place] [address]Performed By: #### [email or web address] #### [employer] CLIA [id number] [address] [place], [place] [address]Mmyrtslmg/100 WBC (Bld)0.3 %NormalMercy Health Fairfield Hospital on above:Order Comment: Specimen Type: BLOOD SPECIMEN Ordering Facility[facility] Address: [address] [place], [place] [address]Performed By: #### [email or web address] #### [employer] CLIA [id number] [address] [place], [place] [address]Oigzkvxyrmjy cell count method Nom (Bld)AutoNormal [facility] on above:Order Comment: Specimen Type: BLOOD SPECIMEN Ordering Facility[facility] Address: [address] [place], [place] [address]Performed By: #### [email or web address] #### [facility] [place] [id number] [address] [place], [place] [address]Eytzkkkrnjl (Bld) [#/Vol]0.09 10*3/uLNormal<0.46 [facility] on above:Order Comment: Specimen Type: BLOOD SPECIMEN Ordering Facility[facility] Address: [address] [place], [place] [address]Performed By: #### [email or web address] #### [facility] [facility] [place] [id number] [address] [place], [place] [address]Okuyynawrzt/100 WBC (Bld)0.8 %NormalMercy Health Fairfield Hospital on above:Order Comment: Specimen Type: BLOOD SPECIMEN Ordering Facility[facility] Address: [address] [place], [place] [address]Performed By: #### [email or web address] #### [facility] [id number] [address] [place], [place] [address]Eamkumsndzw distribution width (RBC) [Ratio]14.7 %Normal 11.5-15.0[facility] on above:Order Comment: Specimen Type: BLOOD SPECIMEN Ordering Facility[facility] Address: [address] [place], [place] [address]Performed By: #### [email or web address] #### [facility] [place] [id number] [address] [place], [place] [address]Iuywydbptx (Bld) [Volume fraction]42.6 %Cepcev33.0-46.0 [facility] on above:Order Comment: Specimen Type: BLOOD SPECIMEN Ordering Facility[facility] Address: [address] [place], [place] [address]Performed By: #### [email or web address] #### [facility] [place] [id number] [address] [place], [place] [address]Tqxcbrxand (Bld) [Mass/Vol]14.2 g/wCVfuyls27.5-15.5 [facility] on above:Order Comment: Specimen Type: BLOOD SPECIMEN [facility] Facility[facility] Address: [address] [place], [place] [address]Performed By: #### [email or web address] #### [facility] CLIA [id number] [address] [place], [place] [address]Vhbcbhxi granulocytes (Bld) [#/Vol]0.04 10*3/uLNormal <0.10[facility] on above:Order Comment: Specimen Type: BLOOD SPECIMEN Order[facility] Facility[facility] Address: [address] [place], [place] [address]Performed By: #### [email or web address] #### [facility] CLIA [id number] [address] [place], [place] [address]Ukwjwtud granulocytes/100 WBC (Bld)0.4 %NormalMercy Health Fairfield Hospital on above:Order Comment: Specimen Type: BLOOD SPECIMEN Ordering Facility[facility] Address: [address] [place], [place] [address]Performed By: #### [email or web address] #### [facility] CLIA [id number] [address] [place], [place] [address]Xaccmvekwla (Bld) [#/Vol]3.03 10*3/uLNormal1.00-4.00 [facility] on above:Order Comment: Specimen Type: BLOOD SPECIMEN Ordering Facility[facility] Address: [address] [place], [place] [address]Performed By: #### [email or web address] #### [facility] CLIA [id number] [address] [place], [place] [address]Wtnzjumcqlt/100 WBC (Bld)28.3 %NormalMercy Health Fairfield Hospital on above:Order Comment: Specimen Type: BLOOD SPECIMEN Ordering Facility[facility] Address: [address] [place], [place] [address]Performed By: #### [email or web address] #### [facility] CLIA [id number] [address] [place], [place] [address]AFP (RBC) [Entitic mass]29.2 jlNzbijx40.0-34.0[facility] on above:Order Comment: Specimen Type: BLOOD SPECIMEN Ordering Facility[facility] Address: [address] [place], [place] [address]Performed By: #### [email or web address] #### [facility] [place] [id number] [address] [place], [place] [address]JCDM (RBC) [Mass/Vol]33.3 g/rZTpfffc99.5-36.0[facility] on above:Order Comment: Specimen Type: BLOOD SPECIMEN [facility] Address: [address] [place], [place] [address]Performed By: #### [email or web address] #### [facility] [place] [id number] [address] [place], [place] [address]VKA (RBC) [Entitic vol]87.5 dIJgcouy07.0-100.0[facility] on above:Order Comment: Specimen Type: BLOOD SPECIMEN Order[facility] Facility[facility] Address: [address] [place], [place] [address]Performed By: #### [email or web address] #### [facility] [place] [id number] [address] [place], [place] [address]Fcyscaxkg (Bld) [#/Vol]0.49 10*3/uLNormal<0.87[facility] on above:Order Comment: Specimen Type: BLOOD SPECIMEN Order[facility] Facility[facility] Address: [address] [place], [place] [address]Performed By: #### [email or web address] #### [facility] [place] [id number] [address] [place], [place] [address]Pvekwahgb/100 WBC (Bld)4.6 %NormalMercy Health Fairfield Hospital on above:Order Comment: Specimen Type: BLOOD SPECIMEN Ordering Facility[facility] Address: [address] [place], [place] [address]Performed By: #### [email or web address] #### [facility] [place] [id number] [address] [place], [place] [address]Wxvdkgepujc (Bld) [#/Vol]7.01 10*3/uLNormal1.45-7.50 [facility] on above:Order Comment: Specimen Type: BLOOD SPECIMEN Ordering Facility[facility] Address: [address] [place], [place] [address]Performed By: #### [email or web address] #### [facility] CLIA [id number] [address] [place], [place] [address]Dtdnbgigbtx/100 WBC (Bld)65.6 %NormalMercy Health Fairfield Hospital on above:Order Comment: Specimen Type: BLOOD SPECIMEN Order[facility] Facility[facility] Address: [address] [place], [place] [address]Performed By: #### [email or web address] #### [facility] [place] [id number] [address] [place], [place] [address]Auitoaxew RBC (Bld) [#/Vol]10*3/uLNormal<0.01[facility] on above:Order Comment: Specimen Type: BLOOD SPECIMEN Ordering Facility[facility] Address: [address] [place], [place] [address]Performed By: #### [email or web address] #### [facility] [place] [id number] [address] [place], [place] [address]Ykhnclqyh RBC/100 WBC (Bld) [Ratio]0.0 /100 WBCNormal [facility] on above:Order Comment: Specimen Type: BLOOD SPECIMEN Ordering Facility[facility] Address: [address] [place], [place] [address]Performed By: #### [email or web address] #### [facility] [place] [id number] [address] [place], [place] [address]Ddvmulfq mean volume (Bld) [Entitic vol]9.1 fLNormal 9.0-12.7CSumma Health [facility] on above:Order Comment: Specimen Type: BLOOD SPECIMEN Order[facility] Facility[facility] Address: [address] [place], [place] [address]Performed By: #### [email or web address] #### [facility] CLIA [id number] [address] [place], [place] [address]Jsnntdkft (Bld) [#/Vol]364 10*3/fBZrguls095-694BzechzwazMercy Health Fairfield Hospital on above:Order Comment: Specimen Type: BLOOD SPECIMEN Ordering Facility[facility] Address: [address] [place], [place] [address]Performed By: #### [email or web address] #### [facility] [id number] [address] [place], [place] [address]UEW (Bld) [#/Vol]4.87 10*6/uLNormal3.90-5.20[facility] on above:Order Comment: Specimen Type: BLOOD SPECIMEN [facility] Address: [address] [place], [place] [address]Performed By: #### [email or web address] #### [facility] [id number] [address] [place], [place] [address]XYH (Bld) [#/Vol]10.69 10*3/uLNormal3.70-11.00[facility] on above:Order Comment: Specimen Type: BLOOD SPECIMEN [facility] Facility[facility] Address: [address] [place], [place] [address]Performed By: #### [email or web address] #### [facility] [id number] [address] [place], [place] [address]Rtdmnqtwxz Ab IF Ql (S)on 71-68-4346Bozmaavjcg Ab Qn (S) <0.2Normal<1.0[facility] on above:Order Comment: Specimen Type: BLOOD SPECIMEN Ordering Facility[facility] Address: [address] [place], [place] [address]Result Comment: Anti-centromere antibody is used as in aid in diagnosis of systemic sclerosis. Clinical correlation is required. Test Methodology: Multiplex flow immunoassay.Performed By: #### 46480-7, 07926- 3, 49859-9, 39428-8, 67922-5, 70517-0, 82433-8, 28615-2 #### [facility] CLIA [id number] [address] [facility] [address] [address] [place] OF AMERICACENTROMERE AB QUALNegative NormalNegativeMercy Health Fairfield Hospital on above:Order Comment: Specimen Type: BLOOD SPECIMEN Order[facility] Address: [address] [place], [place] [address]Performed By: #### 93971-6, 93906- 3, 13928-0, 03169-6, 02164-5, 52700-5, 08653-9, 61846-9 #### [facility] CLIA [id number] [address] [place] [address] [place] OF AMERICAChromatin Ab Qnon 3 CHROMATIN AB QUALNegativeNormalNegativeMercy Health Fairfield Hospital on above:Order Comment: Specimen Type: BLOOD SPECIMEN Order[facility] Facility[facility] Address: [address] [place], [place] [address]Performed By: #### 58744-0, 30350- 3, 93577-3, 82301-7, 23282-5, 71572-0, 64354-6, 61933-5 #### [facility] CLIA [id number] [address] [place] [address] [place] AMERICAChromatin Ab SerPl-aCncon 93-95-3341Lxdqihshi Ab Qn<0.2Normal<1.0[facility] on above:Order Comment: Specimen Type: BLOOD SPECIMEN Ordering Facility: [facility] Address: [address] [place], [place] [address]Result Comment: Test Methodology: Multiplex flow immunoassay.Performed By: #### 20343-3, 09044-9, 33394-4, 94707- 4, 29805-0, 65610-2, 77882-4, 58188-1 #### [facility] CLIA [id number] [address] [place] [address] [place] AMERICAComprehensive metabolic 2000 panelon [id number] [Mass/Vol]4.1 g/dLNormal3.9-4.9CS[facility] on above:Order Comment: Specimen Type: BLOOD SPECIMEN Ordering Facility: [facility] Address: [address] [place], [place] [address]Performed By: #### [email or web address] #### [facility] CLIA [id number] [address] [place] [address]10PBY [Catalytic activity/Vol]62 U/VYrawey90-582ZwwpzosjiMer[facility] Health [facility] on above:Order Comment: Specimen Type: BLOOD SPECIMEN Ordering Facility: [facility] Address: [address] [place], [place] [address]Performed By: #### [email or web address] #### [facility] CLIA [id number] [address] [place], [place] [address]FZB [Catalytic activity/Vol]19 U/LNormal7-38[facility] on above:Order Comment: Specimen Type: BLOOD SPECIMEN Ordering Facility: [facility] Address: [address] [place], [place] [address]Performed By: #### VITB6 #### [facility] CLIA [id number] [address] [place], [place] [address]Bsjlr gap [Moles/Vol]9 mmol/LNormal9-18[facility] on above:Order Comment: Specimen Type: BLOOD SPECIMEN [facility] Facility[facility] Address: [address] [place], [place] [address]Performed By: #### VITB6 #### [facility] CLIA [id number] [address] [place], [place] [address]NON [Catalytic activity/Vol]10 U/FUzg59-82ItsuxqfryMercy Health Fairfield Hospital on above:Order Comment: Specimen Type: BLOOD SPECIMEN [facility] Facility[facility] Address: [address] [place], [place] [address]Performed By: #### VITB6 #### [facility] CLIA [id number] [address] [place], [place] [address]Witwomakc [Mass/Vol]0.2 mg/dLNormal0.2-1.3CSum[facility] on above:Order Comment: Specimen Type: BLOOD SPECIMEN [facility] Address: [address] [place], [place] [address]Performed By: #### VITB6 #### [facility] CLIA [id number] [address] [place], [place] [address]Lrcazds [Mass/Vol]9.2 mg/dLNormal8.5-10.2CSumma Health [facility] on above:Order Comment: Specimen Type: BLOOD SPECIMEN [facility] Address: [address] [place], [place] [address]Performed By: #### VITB6 #### [facility] IA [id number] [address] [place], [place] [address]Giyimlcv [Moles/Vol]106 mmol/QJfpt75-660VtidzllglMercy Health Fairfield Hospital on above:Order Comment: Specimen Type: BLOOD SPECIMEN [facility] Address: [address] [place], [place] [address]Performed By: #### VITB6 #### [facility] IA [id number] [address] [place], [place] [address]QN3 [Moles/Vol]27 mmol/CWptfvp28-93BrayhnngqMercy Health [facility] Hospital on above:Order Comment: Specimen Type: BLOOD SPECIMEN [facility] Address: [address] [place], [place] [address]Performed By: #### VITB6 #### [facility] IA [id number] [address] [place], [place] [address]Xgbzqesqzo [Mass/Vol]0.65 mg/dLNormal0.58-0.96[facility] on above:Order Comment: Specimen Type: BLOOD SPECIMEN [facility] Address: [address] [place], [place] [address]Performed By: #### VITB6 #### [facility] IA [id number] [address] [place], [place] [address]Hgopwiikja and Glomerular filtration rate.predicted panel (S/P/Bld)110 mL/min/1.73m???Normal>=60[facility] on above:Order Comment: Specimen Type: BLOOD SPECIMEN [facility] Address: [address] [place], [place] [address]Result Comment: Estimated Glomerular Filtration Rate (eGFR) is calculated using the 2020 CKD-EPI cre atinine equation. This equation utilizes serum creatinine, sex, and age as parameters. The creatinine assay has traceable calibration to isotope dilution- mass spectrometry. Refer to KDIGO guidelines for clinical interpretation. In patients with unstable renal function, e.g. those with acute kidney injury, the eGFR may not accurately reflect actual GFR.Performed By: #### VITB6 #### [facility] CLIA [id number] [address] [place], [place] [address]Hswjzxx [Mass/Vol]105 mg/gRSlaa63-69FkmcyorhtMercy Health Fairfield Hospital on above:Order Comment: Specimen Type: BLOOD SPECIMEN [facility] Address: [address] [place], [place] [address]Result Comment: The French Diabetes Association (ADA) provides guidance for cutoff [...] Standards of Medical Care in Diabetes 2016, French Diabetes Association. Diabetes Care. 2016.39(Suppl 1).Performed By: #### VITB6 #### [facility] CLIA [id number] [address] [place], [place] [address]Nrcbiczkj [Moles/Vol]4.3 mmol/LNormal3.7-5.1CSumma Health [facility] on above:Order Comment: Specimen Type: BLOOD SPECIMEN [facility] Address: [address] [place], [place] [address]Performed By: #### VITB6 #### [facility] CLIA [id number] [address] [place], [place] [address]Qdkkznd [Mass/Vol]6.7 g/dLNormal6.3-8.0[facility] on above:Order Comment: Specimen Type: BLOOD SPECIMEN [facility] Address: [address] [place], [place] [address]Performed By: #### VITB6 #### [facility] CLIA [id number] [address] [place], [place] [address]Ydeniw [Moles/Vol]142 mmol/KBrrytm482-621JcowuslceMercy Health Fairfield Hospital on above:Order Comment: Specimen Type: BLOOD SPECIMEN [facility] Address: [address] [place], [place] [address]Performed By: #### VITB6 #### [id number] [address] [place], [place] [address]Felw nitrogen [Mass/Vol]17 mg/dLNormal7-[facility] on above:Order Comment: Specimen Type: BLOOD SPECIMEN [facility] Address: [address] [place], [place] [address]Performed By: #### VITB6 #### [facility] [id number] [address] [place], [place] [address]EML ANTIBODY DS BLDon 83-49-4259REQ GJKKWSCL38 IU/mL Normal<=200[facility] on above:Order Comment: Specimen Type: BLOOD SPECIMEN [facility] Address: [address] [place], [place] [address]Performed By: #### VITB6 #### [facility] [id number] [address] [place], [place] [address]ODQ ANTIBODY QUALITATIVE INTERPRETATIONNegativeNormal NegativeMercy Health Fairfield Hospital on above:Order Comment: Specimen Type: BLOOD SPECIMEN [facility] Address: [address] [place], [place] [address]Performed By: #### VITB6 #### [facility] [id number] [address] [place], [place] [address]HBK Jo1 Ab Ser-aCncon 20-17-0746Zf-1 extractable nuclear Ab Qn (S)<0.2Normal<1.0[facility] on above:Order Comment: Specimen Type: BLOOD SPECIMEN [facility] Address: [address] [place], [place] [address]Performed By: #### 83975-3, 50708- 3, 54172-0, 71022-1, 63796-2, 86208-4, 98976-2, 83593-8 #### [facility] CLIA [id number] [address] [facility] [id number] STATES [place] TICKET COUNTER Ab Ser-aCncon 73-82-3726Naklzvruudwshbiib extractable nuclear Ab Qn (S)<0.2Normal<1.0[facility] on above:Order Comment: Specimen Type: BLOOD SPECIMEN [facility] Address: [address] [place], [place] [address]Performed By: #### 44127-4, 39932- 3, 71830-1, 88545-1, 06031-9, 06163-4, 94242-9, 87008-1 #### [facility] CLIA [id number] [address] [place] [address] [place] AMERICARibonucleoprotein extractable nuclear Ab Qn (S)0.2 AINormal<1.0[facility] on above:Order Comment: Specimen Type: BLOOD SPECIMEN [facility] Address: [address] [place], [place] [address]Performed By: #### VITB6 #### [facility] CLIA [id number] [address] [place] [address]ROP SM IgG Ser-aCncon 92-88-2785Rbziy extractable nuclear IgG Qn (S)<0.2Normal<1.0[facility] on above:Order Comment: Specimen Type: BLOOD SPECIMEN [facility] Address: [address] [place], [place] [address]Performed By: #### 34811-2, 52680- 3, 70313-3, 14363-8, 51027-9, 82467-0, 54675-7, 72818-4 #### [facility] CLIA [id number] [address] [place] [address] [place] SS-A Ab Ser-aCncon 45-01-6042Dnynrgzh syndrome-A extractable nuclear Ab Qn (S)<0.2Normal<1.0 [facility] on above:Order Comment: Specimen Type: BLOOD SPECIMEN [facility] Address: [address] [place], [place] [address]Result Comment: Test Methodology: Multiplex flow immunoassay.Performed By: #### 60250-0, 42934-0, 25771-3, 94458- 4, 22724-6, 34489-0, 97137-4, 65678-5 #### [facility] CLIA [id number] [address] [place] [address] [place] SS-B Ab Ser-aCncon 91-28-1145Zedvetth syndrome-B extractable nuclear Ab Qn (S)<0.2Normal<1.0 [facility] on above:Order Comment: Specimen Type: BLOOD SPECIMEN [facility] Address: [address] [place], [place] [address]Result Comment: Anti-SSB (anti-La) antibody is used as an aid in diagnosis of a variety of systemicautoimmune diseases, especially for Sjogren's syndrome and systemic lupus erythematosus. Clinical correlation is required. Test Methodology: Multiplex flow immunoassay.Performed By: #### 11362-8, 22715- 3, 60637-2, 83944-4, 10747-4, 08713-9, 69148-7, 91905-2 #### [facility] CLIA [id number] [address] [place] [address] STATES OF AMERICAFolate SerPl-mCncon 11-69-3820Saagzu [Mass/Vol]13.0 ng/mLNormal>4.7CSumma Health [facility] on above:Order Comment: Specimen Type: BLOOD SPECIMEN [facility] Address: [address] [place], [place] [address]Performed By: #### VITB6 #### [facility] [id number] [address] [place], [place] [address]Fw-6 extractable nuclear Ab Qn (S)on 63-11-1961RP 1 ANTIBODY QUALNegativeNormalNegativeMer[facility] Health [facility] on above: Order Comment: Specimen Type: BLOOD SPECIMEN [facility] Address: [address] [place], [place] [address]Result Comment: Anti-JUDITH-1 antibody is used as an aid in diagnosis of polymyositis and dermatomyositis especially with pulmonary involvement. A negative result cannot rule out polymyositis or dermatomyositis. Clinical correlation is required. Test Methodology: Multiplex flow immunoassay.Performed By: #### 12465-7, 00910- 3, 88061-3, 23100-8, 19691-8, 97089-5, 07620-8, 43916-7 #### [facility] CLIA [id number] [address] [place] [address] [place] AMERICARibonucleoprotein extractable nuclear Ab Qn (S)on 18-03-1907QUET-TICKET COUNTER QUALNegativeNormalNegative [facility] on above:Order Comment: Specimen Type: BLOOD SPECIMEN [facility] Address: [address] [place], [place] [address]Performed By: #### VITB6 #### [facility] [id number] [address] [place] [address]BMUEUCFWM TICKET COUNTER QUALNegativeNormalNegativeMercy Health [facility] on above:Order Comment: Specimen Type: BLOOD SPECIMEN [facility] Address: [address] [place], [place] [address]Result Comment: Anti-Ribosomal RNA (Ribosomal P) antibody is used as an aid in diagnosis of systemic autoimmune diseases especially systemic lupus erythematosus and mixed connective tissue disease. Cross-reactivity with Anti-lobo antibody is not uncommon. Clinical correlation is required. Test Methodology: Multiplex flow immunoassay.Performed By: #### 90590-1, 69977- 3, 01514-4, 29691-5, 98466-7, 78133-2, 14181-8, 80670-9 #### [facility] CLIA [id number] [address] [place] [address] [place] AMERICASCL-70 extractable nuclear IgG IA Qn (S)on 36-42-4852XQUXAIDCNBD AB QUALNegativeNormalNegativeMer[facility] Health [facility] on above:Order Comment: Specimen Type: BLOOD SPECIMEN [facility] Address: [address] [place], [place] [address]Performed By: #### 90246-8, 27846- 3, 14371-6, 10336-3, 04957-3, 72686-4, 83355-0, 73011-9 #### [facility] CLIA [id number] [address] [place] [address] [place] AMERICASCLERODERMA IGG AB<0.2Normal <1.0[facility] on above:Order Comment: Specimen Type: BLOOD SPECIMEN [facility] Address: [address] [place], [place] [address]Result Comment: Scl-70/Scleroderma antibody test is used as an aid in diagnosis of systemic sclerosis especially the diffuse cutaneous form. A negative result cannot rule out systemic sclerosis. The final interpretation should consider clinical picture and other test results such as anti-centromereantibody. Test Methodology: Multiplex flow immunoassay.Performed By: #### 59986-8, 68344-2, 87310-9, 71731-9, 13639-2, 24511-2, 75737-1, 65294-8 #### [facility] IA [id number] [address] [place], [place] [address] [place] AMERICASjogrens syndrome-A extractable nuclear Ab Qn (S)on 59-76-9260DAD ANTIBODY QUALNegativeNormal NegativeMercy Health Fairfield Hospital on above:Order Comment: Specimen Type: BLOOD SPECIMEN [facility] Address: [address] [place], [place] [address]Performed By: #### 40947-3, 81310- 3, 53016-9, 82176-7, 46014-7, 38407-7, 17753-7, 65304-6 #### [facility] CLIA [id number] [address] [place], [place] [address] [place] AMERICASjogrens syndrome-B extractable nuclear Ab Qn (S)on 50-11-0286XSY ANTIBODY QUALNegativeNormal NegativeMercy Health Fairfield Hospital on above:Order Comment: Specimen Type: BLOOD SPECIMEN [facility] Address: [address] [place], [place] [address]Performed By: #### 17276-9, 19291- 3, 54091-4, 46536-6, 29677-3, 06059-3, 01052-4, 04273-7 #### [facility] CLIA [id number] [address] [place] [address] [place] AMERICASmith extractable nuclear IgG Qn (S)on 68-72-4323IW ANTIBODY QUALNegativeNormalNegativeMercy Health [facility] on above:Order Comment: Specimen Type: BLOOD SPECIMEN [facility] Address: [address] [place], [place] [address]Result Comment: Anti-Sm (Lobo) antibody is used as an aid in diagnosis of systemic lupus erythematosus and its presence is associated with renal disease. A negative result cannot rule out systemic lupus erythematosus. Clinical correlation is required. Test Methodology: Multiplex flow immunoassay.Performed By: #### 01191-5, 26761- 3, 44689-3, 31342-7, 93171-5, 30019-4, 41662-2, 24648-1 #### [facility] CLIA [id number] [address] [place] [address] [place] AMERICAVITAMIN B6/PYRIDOXINon 98-63-3805BJXUAHL B6169.1 nmol/LHigh20.0-125.0[facility] on above:Order Comment: Specimen Type: BLOOD SPECIMEN [facility] Address: [address] [place], [place] [address]Result Comment: INTERPRETIVE INFORMATION: Vitamin B6 (Pyridoxal 5-Phosphate) Pyridoxal 5'-phosphate measured in a specimen collected following an 8-hour or overnight fast accurately indicates vitamin B6 nutritional status. Non-fasting specimen concentration reflects recent vitamin intake. This test was developed and its performance characteristics determined by [facility]. It has not been cleared or approved by the US Food and Drug Administration. This test was performed in a CLIA certified laboratory and is intended for clinical purposes. Performed By: [facility] [address] [place] [address] [employer] Rep: Greg Wong MD, PhD CLIA Number: [id number] By: #### VITB6 #### [facility] IA [id number] [address] [place], [place] [address]Hyk B12 SerPl-[facility] Hospitalon 08-83-2904Yjstafhkx (Vitamin B12) [Mass/Vol]412 pg/qPNvwxws149-1704FwdtdliteSumma Health Akron Campus on above: Order Comment: Specimen Type: BLOOD SPECIMEN [facility] Address: [place], [place] [address]Swcjwnefu By: #### VITB6 #### [facility] IA [id number] [address] [place], [place] [address]WPKByh 30-37-8515ZGLMBtbhqm Visit (ADRY) LUPE PICKARD ([id number]) 1975 F Date Time Provider Department 05/17/23 2:00 PM STEPHIE BRAMBILA During your visit today, we recorded the following information about you: Pulse Respiration Blood pressure Weight 70/minute 18/minute 144/81 121.8 kg Stephie Brambila MD 05/17/2023 2:50 PM Signed [facility] Date of Service: 05/17/2023 Patient: Lupe Pickard Medical Record: [id number] Last Rheumatology visit: None at [facility] History of Present Illness Lupe Pickard [...] uses heat/ice, massage which helps. She takes [place] 5mg that does not do much for [...] 10 years. 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 Family History: No known FH of autoimmune [...] melatonin 10 mg ta (more content not included)...NormalMercy Health St. [facility] reactive protein [Mass/volume] in Serum or Plasma by High sensitivity methodOrdered By: Zoya Aguirre on 95-38-4855WEW High sensitivity method [Mass/Vol]4.6 mg/L0.0-0.9[facility] HospitalComment on above: Cardiovascular Risk Classification (AHA/CDC)hsCRP < [...] of this marker for estimation of CVD risk.Erythrocyte sedimentation rate by Photometric method Ordered By: Zoya Aguirre on 37-36-5674FGS Photometric method (Bld) [Velocity]14 mm/hr0[facility]aritan HospitalVitamin B12 ser/plas Ordered By: Zoya Aguirre on 85-11-1769Pdmoolsvh (Vitamin B12) [Mass/Vol] 464 pg/dG248-176TssvkdgofGood Samaritan HospitalAlanine aminotransferase [Enzymatic activity/volume] in Serum or PlasmaOrdered By: Radha Mcintosh on 55-28-1105IEA [Catalytic activity/Vol]13 U/L7-52[facility] HospitalAlbumin [Mass/volume] in Serum or Plasma by Bromocresol green (BCG) dye binding methoOrdered By: Radha Mcintosh on 73-33-7704Lpuhlay BCG dye [Mass/Vol]4.2 g/dL3.5-5.7FMercy Health Allen HospitalAlkaline phosphatase [Enzymatic activity/volume] in Serum or PlasmaOrdered By: Radha Mcintosh on 69-53-4741IFC [Catalytic activity/Vol]66 U/Q55-372AtekekcqoGood Samaritan HospitalAspartate aminotransferase [Enzymatic activity/volume] in Serum or PlasmaOrdered By: Radha Mcintosh on 97-18-7006EIM [Catalytic activity/Vol]11 U/O38-02ViwkzbmqsGood Samaritan HospitalBasophils Auto (Bld) [#/Vol]Ordered By: Radha Mcintosh on 04-00-1132Andemgtid (Bld) [#/Vol]0.1 10*3/uL0.0-0.2FMercy Health Allen HospitalBasophils/100 WBC Auto (Bld)Ordered By: Radha Mcintosh on 03-17-2023 Basophils/100 WBC (Bld)0.8 %.Good [facility]itan HospitalBilirubin.total [Mass/volume] in Serum or PlasmaOrdered By: Radha Mcintosh on 09-17-6120Jotlqsrzg [Mass/Vol]0.3 mg/dL0.3-1.0[facility] HospitalCalcium [Mass/volume] in Serum or PlasmaOrdered By: Melissa Singh on 28-20-1946Klxwbxd [Mass/Vol]9.0 mg/dL8.6-10.3FMercy Health Allen HospitalCarbon dioxide, total [Moles/volume] in Serum or PlasmaOrdered By: Radha Mcintosh on 13-14-0270CG8 [Moles/Vol]27.5 mmol/L21.0-31.0[facility] HospitalChloride [Moles/volume] in Serum or PlasmaOrdered By: Radha Mcintosh on 92-67-0563Czcvtlgq [Moles/Vol]104 mmol/X49-704BviagsfdvGood Samaritan HospitalCreatinine [Mass/volume] in Serum or PlasmaOrdered By: Radha Mcintosh on 34-70-6082Ramzkqmpot [Mass/Vol]0.54 mg/dL0.60-1.20[facility] HospitalEosinophils Auto (Bld) [#/Vol]Ordered By: Radha Mcintosh on 24-56-2974Uerenlqbjsd (Bld) [#/Vol]0.1 10*3/uL0.0-0.45[facility]itan HospitalEosinophils/100 WBC Auto (Bld) Ordered By: Rahda Mcintosh on 17-94-6351Eqlgkhrkkzg/100 WBC (Bld)1.5 %.[facility]itan HospitalErythrocyte distribution width Auto (RBC) [Ratio]Ordered By: Radha Mcintosh on 79-01-9209Mwsgyhjxkik distribution width (RBC) [Ratio]15.2 % 11.9-15.3FMercy Health Allen HospitalFerritin [Mass/volume] in Serum or PlasmaOrdered By: Melissa Singh on 54-91-0780Fhyvczsl [Mass/Vol]66.4 ng/mL 11.0-306.8[facility] HospitalFolate [Mass/volume] in Serum or PlasmaOrdered By: Melissa Singh on 49-47-5091Ukueat [Mass/Vol]27.0 ng/mL>5.9 [facility] HospitalComment on above:Folate reference range: >5.9 ng/mlThe WHO technical consultation on folate and vitamin z99daqkqooormep has determined that folate concentrations lessthan 4 ng/ml are considered deficient. Globulin Calc (S) [Mass/Vol]Ordered By: Radha Mcintosh on 77-02-5179Cprctbyx (S) [Mass/Vol]2.8 g/dLGood Samaritan HospitalGlucose [Mass/volume] in Serum or PlasmaOrdered By: Radha Mcintosh on 35-20-1417Kdnogjb [Mass/Vol]79 mg/dL 70-100[facility] HospitalComment on above:ADA recommended reference rangeRandom Glucose Reference Range is dependent on time and content of last meal. Glucose of more than 200 mg/dL in a nonstressed, ambulatory subject supports the diagnosisof Diabetes Mellitus.Hematocrit Auto (Bld) [Volume fraction]Ordered By: Radha Mcintosh on 23-48-9843Hlwsxnipua (Bld) [Volume fraction]39.4 %34.0-46.4FMercy Health Allen HospitalHemoglobin [Mass/volume] in BloodOrdered By: Radha Mcintosh on 40-71-8920Kjdzimsrdh (Bld) [Mass/Vol]13.1 g/dL11.8-15.4FMercy Health Allen HospitalIron [Mass/volume] in Serum or PlasmaOrdered By: Melissa Singh on 17-82-2273Cugg [Mass/Vol]40 ug/pC04-442NmlwilpngGood Samaritan HospitalLeukocytes [#/volume] corrected for nucleated erythrocytes in Blood by Automated counOrdered By: Radha Mcintosh on 93-28-1508FFX corrected for nucl RBC Auto (Bld) [#/Vol]8.8 10*3/uL3.8-11.6 [facility] HospitalLymphocytes Auto (Bld) [#/Vol]Ordered By: Radha Mcintosh on 01-62-2169Mhvaeyylmwg (Bld) [#/Vol]2.6 10*3/uL1.00-4.8[facility]itan HospitalLymphocytes/100 WBC Auto (Bld)Ordered By: Radha Mcintosh on 35-53-7758Kauduqasrdk/100 WBC (Bld)29.4 %.Good [facility]aritan HospitalMCH Auto (RBC) [Entitic mass]Ordered By: Radha Mcintosh on 09-58-0961XYS (RBC) [Entitic mass]29.0 pg24.7-34.3FMercy Health Allen HospitalMCHC Auto (RBC) [Mass/Vol]Ordered By: Radha Mcintosh on 65-06-1039ORHX (RBC) [Mass/Vol]33.3 g/dL 32.0-35.0[facility]itan HospitalMCV Auto (RBC) [Entitic vol]Ordered By: Radha Mcintosh on 63-82-4233FMM (RBC) [Entitic vol]87.0 yM89-330JrwpmxdxeGood Samaritan HospitalMonocytes Auto (Bld) [#/Vol]Ordered By: Radha Mcintosh on 89-98-8648Uaidejmbl (Bld) [#/Vol]0.5 10*3/uL0.0-0.8[facility]itan HospitalMonocytes/100 WBC Auto (Bld)Ordered By: Radha Mcintosh on 03-17-2023 Monocytes/100 WBC (Bld)5.5 %.[facility]itan HospitalNeutrophils Auto (Bld) [#/Vol]Ordered By: Radha Mcintosh on 25-77-9431Vijnqeeszyk (Bld) [#/Vol]5.5 10*3/uL1.8-7.7FMercy Health Allen HospitalNeutrophils/100 WBC Auto (Bld) Ordered By: Radha Mcintosh on 72-18-2422Kyssosoupsd/100 WBC (Bld)62.8 %.[facility]itan HospitalNo Panel InformationOrdered By: Radha Mcintosh on 03-17-2023 Estimated GFR (CKD-EPI)> 60.0 mL/MinGood Samaritan HospitalPharmacy Creatinine Clearance (ChemN/AFMercy Health Allen HospitalNucleated erythrocytes [Presence] in Blood by Automated countOrdered By: Radha Mcintosh on 59-14-2784Yjbvmunxn RBC Auto Ql (Bld)0.1 /100{WBC}0-0.5FMercy Health Allen HospitalParathyrin.intact [Mass/volume] in Serum or PlasmaOrdered By: Melissa Singh on 48-77-7879Iuduwpgfnd.intact [Mass/Vol]46.2 pg/eL77-72OjvjsmkmzGood Samaritan HospitalPhosphate [Mass/volume] in Serum or PlasmaOrdered By: Melissa Singh on 63-22-2949Iupvjovmi [Mass/Vol]4.0 mg/dL3.7-7.2FMercy Health Allen HospitalPlatelet mean volume Auto (Bld) [Entitic vol]Ordered By: Radha Mcintosh on 74-60-3140Bgolmcsh mean volume (Bld) [Entitic vol]7.6 fL6.3-10.7 [facility] HospitalPlatelets Auto (Bld) [#/Vol]Ordered By: Radha Mcintosh on 05-51-0263Gwnmuiolo (Bld) [#/Vol]370 10*3/tM416-525NqghxzinrGood Samaritan HospitalPotassium [Moles/volume] in Serum or PlasmaOrdered By: Radha Mcintosh on 62-44-2602Ipwkqhark [Moles/Vol]4.1 mmol/L3.5-5.1FMercy Health Allen HospitalProtein [Mass/volume] in Serum or PlasmaOrdered By: Radha Mcintosh on 75-51-6695Bwbxbox [Mass/Vol]7.0 g/dL6.4-8.9[facility]itan HospitalRBC Auto (Bld) [#/Vol]Ordered By: Radha Mcintosh on 48-28-0828IUS (Bld) [#/Vol]4.53 10*6/uL3.60-5.00[facility] Cincinnatierum or plasma 25- hydroxycalciferol measurement (mass/volume)Ordered By: Radha Mcintosh on 03-17-2023 25-hydroxyvitamin D2 [Mass/Vol]<1.0 ng/mL.[facility] Comment on above:This test was developed and its performance characteristicsdetermined by [employer]. It has not been cleared or approvedby the Food and Drug Administration.Serum or plasma 25-hydroxyvitamin D measurement (mass/volume)Ordered By: Radha Mcintosh on 89-78-406427730599-fsicqcitfcrvoh D [Mass/Vol] 47 ng/mL.[facility]itan HospitalComment on above:Reference Range:All Ages: Target levels 30 - 100Serum or plasma albumin/globulin mass ratioOrdered By: Radha Mcintosh on 30-21-1618Knfttsy/Globulin [Mass ratio]1.5 {ratio}[facility] Cincinnatierum or plasma anion gap determinationOrdered By: Radha Mcintosh on 85-89-8592Qmnwt gap [Moles/Vol]11.6 mmol/L6.0-15.0[facility] Cincinnatierum or plasma calcidiol measurement (mass/volume) Ordered By: Radha Mcintosh on [id number]-[id number] D3 [Mass/Vol]47 ng/mL. [facility] HospitalComment on above:This test was developed and its performance characteristicsdetermined by [employer]. It has not been cleared or approvedby the Food and Drug Administration.Performed at: [facility] [address] [id number] Director: Kenji Malone MD, Phone: [phone] [Moles/volume] in Serum or PlasmaOrdered By: Radha Mcitnosh on 19-72-5894Yhdqlh [Moles/Vol]139 mmol/R525-663BarlbxzsyGood Samaritan HospitalUrea nitrogen [Mass/volume] in Serum or PlasmaOrdered By: Radha Mcintosh on 83-84-7528Oget nitrogen [Mass/Vol]9 mg/dL7-25[facility] Vitamin B12 ser/plasOrdered By: Melissa Singh on 85-93-3669Gnsyiwxil (Vitamin B12) [Mass/Vol]478 pg/bO908-334MaomdrrzxGood Samaritan HospitalWBC Auto (Bld) [#/Vol]Ordered By: Radha Mcintosh on 37-08-2097UWL (Bld) [#/Vol]8.8 10*3/uL3.8-11.6 [facility] HospitalThyrotropin [Units/volume] in Serum or Plasma Ordered By: Kenyetta Dove on 00-56-2981ZDB Qn0.24 m[IU]/L0.45-5.33[facility] HospitalThyroxine (T4) free [Mass/volume] in Serum or Plasma Ordered By: Kenyetta Dove on 05-66-9344Rwld T4 [Mass/Vol]0.87 ng/dL0.61-1.12 [facility] HospitalTriiodothyronine (T3) Free [Mass/volume] in Serum or PlasmaOrdered By: Kenyetta Dove on 28-31-3980Ulru T3 [Mass/Vol]3.89 pg/mL2.50-3.90[facility] HospitalActivated partial thromboplastin time (aPTT) in platelet poor plasma by coagulation aOrdered By: Laz Lobo on 44-53-7667fHCU Coag (PPP) [Time]29.9 s25.1-36.5FMercy Health Allen Hospital Basophils Auto (Bld) [#/Vol]Ordered By: Laz Lobo on 14-47-7752Tsqrjhgqm (Bld) [#/Vol]0.1 10*3/uL0.0-0.2FMercy Health Allen HospitalBasophils/100 WBC Auto (Bld)Ordered By: Laz Lobo on 67-29-4111Fkidygzjd/100 WBC (Bld)0.7 %.[facility] HospitalBilirubin Test strip Ql (U)Ordered By: Laz Lobo on 05-36-5779Rupolsvlv Ql (U)NegativeNegativeGood Samaritan Hospital Calcium [Mass/volume] in Serum or PlasmaOrdered By: Laz Lobo on 01-24-2023 Calcium [Mass/Vol]8.7 mg/dL8.6-10.3FMercy Health Allen HospitalCarbon dioxide, total [Moles/volume] in Serum or PlasmaOrdered By: Laz Lobo on 96-74-8662GR9 [Moles/Vol]29.0 mmol/L21.0-31.0[facility] Chloride [Moles/volume] in Serum or PlasmaOrdered By: Laz Lobo on 01-24-2023 Chloride [Moles/Vol]105 mmol/E90-138RfkdiiypoGood Samaritan HospitalColor Auto (U)Ordered By: Laz Lobo on 10-12-6682Vgzpv (U)YellowYellowGood Samaritan HospitalCreatine kinase [Enzymatic activity/volume] in Serum or Plasma Ordered By: Laz Lobo on 92-36-9486JX [Catalytic activity/Vol]55 U/L30-223 [facility] HospitalCreatinine [Mass/volume] in Serum or Plasma Ordered By: Laz Lobo on 33-76-3411Swqkbpltlx [Mass/Vol]0.57 mg/dL0.60-1.20 [facility] HospitalEosinophils Auto (Bld) [#/Vol]Ordered By: Laz Lobo on 12-66-8216Olliphzylpj (Bld) [#/Vol]0.1 10*3/uL0.0-0.45[facility] HospitalEosinophils/100 WBC Auto (Bld)Ordered By: Laz Lobo on 81-50-5603Jxmlhgvpdgb/100 WBC (Bld)1.6 %.[facility] Erythrocyte distribution width Auto (RBC) [Ratio]Ordered By: Laz Lobo on 22-02-6559Hqecnydrmgz distribution width (RBC) [Ratio]14.5 %11.9-15.3FMercy Health Allen HospitalGlucose [Mass/volume] in Serum or PlasmaOrdered By: Laz Lobo on 41-55-5663Qkforfn [Mass/Vol]110 mg/kU54-785CsdwnvgukGood Samaritan HospitalComment on above:ADA recommended reference rangeRandom Glucose Reference Range is dependent on time and content of last meal. Glucose of more than 200 mg/dL in a nonstressed, ambulatory subject supports the diagnosisof Diabetes Mellitus.Hematocrit Auto (Bld) [Volume fraction]Ordered By: Laz Lobo on 91-52-0196Navndvhtjy (Bld) [Volume fraction]39.8 %34.0-46.4FMercy Health Allen HospitalHemoglobin [Mass/volume] in BloodOrdered By: Laz Lobo on 66-10-1858Norktvdvld (Bld) [Mass/Vol]13.2 g/dL11.8-15.4FMercy Health Allen HospitalINR in Platelet poor plasma by Coagulation assayOrdered By: Laz Lobo on 23-33-9023ORM Coag (PPP) [Relative time]1.0 {INR}[facility] HospitalComment on above:INR Therapeutic Range A) Pre- and Peroperative OAT started two weeks before surgery. NOT HIP SURGERY: 1.5 - 2.5 HIP SURGERY: 2 - 3B) Primary and secondary prevention of venous THROMBOSIS: 2 - 3C) Active venous thrombosis, pulmonary embolismand prevention of recurrent venous thrombosis: 2 - 3D) Prevention of arterial thromboembolismincluding patients with mechanical heart valves: 3 - 4.5Ketones Auto test strip (U) [Mass/Vol] Ordered By: Laz Lobo on 29-41-1939Dntkvcg (U) [Mass/Vol]NegativeNegative [facility] HospitalLaboratory - CoagulationOrdered By: Laz Lobo on 29-88-4044IS Coag (PPP) [Time]11.5 s9.0-12.9[facility] Leukocytes [#/volume] corrected for nucleated erythrocytes in Blood by Automated counOrdered By: Laz Lobo on 17-90-7630SBO corrected for nucl RBC Auto (Bld) [#/Vol]7.6 10*3/uL3.8-11.6FMercy Health Allen HospitalLymphocytes Auto (Bld) [#/Vol]Ordered By: Laz Lobo on 51-27-4481Ybcpdczcdtw (Bld) [#/Vol]2.0 10*3/uL1.00-4.8[facility] HospitalLymphocytes/100 WBC Auto (Bld) Ordered By: Laz Lobo on 62-56-1251Ihnzrgosjtp/100 WBC (Bld)26.6 %.[facility] Auto (RBC) [Entitic mass]Ordered By: Laz Lobo on 32-07-3376VFU (RBC) [Entitic mass]28.8 pg24.7-34.3FMercy Health Allen HospitalMCHC Auto (RBC) [Mass/Vol]Ordered By: Laz Lobo on 54-78-7935WVOH (RBC) [Mass/Vol]33.1 g/dL32.0-35.0[facility] HospitalMCV Auto (RBC) [Entitic vol]Ordered By: Laz Lobo on 00-78-3294KLQ (RBC) [Entitic vol]86.8 fL 80-100[facility] HospitalMonocyte distribution width [Entitic volume] in Blood by AutomatedOrdered By: Laz Lobo on 06-90-0215Wrgrsgxq distribution width Auto (Bld) [Entitic vol]16.72 %0.00-20.00[facility] HospitalMonocytes Auto (Bld) [#/Vol]Ordered By: Lza Lobo on 01-24-2023 Monocytes (Bld) [#/Vol]0.2 10*3/uL0.0-0.8[facility] Monocytes/100 WBC Auto (Bld)Ordered By: Laz Lobo on 50-54-2656Dshzhctuh/100 WBC (Bld)2.7 %.[facility] HospitalNatriuretic peptide B [Mass/Vol] Ordered By: Laz Lobo on 18-54-7801Mlusiwlrbjm peptide B (Bld) [Mass/Vol]37.0 pg/mL5-100[facility] HospitalNeutrophils Auto (Bld) [#/Vol]Ordered By: Laz Lobo on 68-96-9672Duipofiakpa (Bld) [#/Vol]5.2 10*3/uL1.8-7.7 [facility] HospitalNeutrophils/100 WBC Auto (Bld)Ordered By: Laz Lobo on 29-60-8718Jmeekshamoj/100 WBC (Bld)68.4 %.[facility] HospitalNitrite Test strip Ql (U)Ordered By: Laz Lobo on 18-54-2179Vtaejjy Ql (U)NegativeNegativeGood Samaritan HospitalNo Panel InformationOrdered By: Laz Lobo on 72-51-9466A-Dimer Quantitative (PE/DVT)< 200 ng/mL0-243 [facility] HospitalComment on above:The reference range for D- dimer is <243 ng/mL D-dimer units.D-dimer results must be used in conjunction with a clinicalpretest probability (PTP) assessment model for deep veinthrombosis (DVT) and pulmonary embolism (PE). Results <230ng/mL d-dimer units can be used as a negative predictor inpatients with low or moderate probability for DVT/PE.Results above the exclusion threshold of 230 ng/ml D- dimerunits for DVT/PE may indicate the need for furtherdiagnostic testing.D- Dimer can be increased in hospitalized patients due toco-morbid conditions. Estimated GFR (CKD-EPI)> 60.0 mL/MinGood Samaritan HospitalPharmacy Creatinine Clearance (Aahv420.33[facility] HospitalNucleated erythrocytes [Presence] in Blood by Automated countOrdered By: Laz Lobo on 59-29-3835Wkktxdzuh RBC Auto Ql (Bld)0.1 /100{WBC}0-0.5FMercy Health Allen HospitalPlatelet mean volume Auto (Bld) [Entitic vol]Ordered By: Laz Lobo on 73-06-7777Nhckwtjx mean volume (Bld) [Entitic vol]8.2 fL6.3-10.7 [facility] HospitalPlatelets Auto (Bld) [#/Vol]Ordered By: Laz Lobo on 21-88-0408Zbmgjjsfp (Bld) [#/Vol]350 10*3/vI982-529ZkncmyyoxGood Samaritan HospitalPotassium [Moles/volume] in Serum or PlasmaOrdered By: Laz Lobo on 77-90-1915Bqbuxmjim [Moles/Vol]3.8 mmol/L3.5-5.1FMercy Health Allen HospitalProtein Auto test strip (U) [Mass/Vol]Ordered By: Laz Lobo on 01-24-2023 Protein (U) [Mass/Vol]NegativeNegativeGood Samaritan HospitalRBC Auto (Bld) [#/Vol]Ordered By: Laz Lobo on 61-37-6124NRW (Bld) [#/Vol]4.59 10*6/uL 3.60-5.00[facility] Cincinnatierum or plasma anion gap determinationOrdered By: Laz Lobo on 54-80-7440Lqpkg gap [Moles/Vol]8.8 mmol/L 6.0-15.0[facility] Cincinnatiodium [Moles/volume] in Serum or PlasmaOrdered By: Laz Lobo on 52-19-8788Ywcolu [Moles/Vol]139 mmol/A144-326 [facility] Cincinnatipecific gravity Auto test strip (U) [Rel density]Ordered By: Laz Lobo on 83-62-8803Zycrjdzv gravity (U) [Rel density] 1.0041.001-1.030[facility] HospitalTroponin I.cardiac [Mass/volume] in Serum or Plasma by Detection limit <= 0.01 ng/Ordered By: Laz Lobo on 46-56-9848Gvqftsub I.cardiac DL <= 0.01 ng/mL [Mass/Vol]< 2.3 pg/mL 0.0-15.0[facility] HospitalUrea nitrogen [Mass/volume] in Serum or PlasmaOrdered By: Laz Lobo on 92-05-7742Xoju nitrogen [Mass/Vol]7 mg/dL12-21 [facility] HospitalUrine clarity by refractometry automatedOrdered By: Laz Lobo on 96-96-5215Klqimeg Refractometry automated (U)ClearClear [facility] HospitalUrine glucose measurement by automated test strip (mass/volume)Ordered By: Laz Lobo on 28-94-6047Hpsnucw Auto test strip (U) [Mass/Vol]Normal mg/dLNormalGood Samaritan HospitalUrine hemoglobin detection by automated test stripOrdered By: Laz Lobo on 01-24-2023 Hemoglobin Auto test strip Ql (U)NegativeNegativeGood Samaritan HospitalUrine leukocyte esterase detection by automated test stripOrdered By: Laz Lobo on 21-74-5745Ncmiwrzjo esterase Auto test strip Ql (U)NegativeNegative [facility] HospitalUrobilinogen Auto test strip (U) [Mass/Vol] Ordered By: Laz Lobo on 48-43-2297Gecixzpzczhl (U) [Mass/Vol]Normal mg/dL NormalGood Samaritan HospitalWBC Auto (Bld) [#/Vol]Ordered By: Laz Lobo on 81-92-2479QFA (Bld) [#/Vol]7.6 10*3/uL3.8-11.6FMercy Health Allen HospitalpH Auto test strip (U)Ordered By: Laz Lobo on 72-96-8816kD (U) 7.0 [pH]5.0-9.0[facility] HospitalCalcium [Mass/volume] in Serum or PlasmaOrdered By: Phillip Benjamin on 36-87-3309Obrotqs [Mass/Vol]9.1 mg/dL 8.6-10.3FMercy Health Allen HospitalCarbon dioxide, total [Moles/volume] in Serum or PlasmaOrdered By: Phillip Benjamin on 02-72-4150CZ8 [Moles/Vol]28.2 mmol/L21.0-31.0[facility] HospitalChloride [Moles/volume] in Serum or PlasmaOrdered By: Phillip Benjamin on 64-57-1537Uzisaccy [Moles/Vol]105 mmol/O63-963YhppoolaiGood Samaritan HospitalCholesterol [Mass/volume] in Serum or PlasmaOrdered By: Franklyn Herman on 09-54-9688Snfutfhkozc [Mass/Vol]153 mg/dL 140-200[facility] HospitalComment on above:Chol less than 200 mg/dl low riskChol 201-239 mg/dl borderline riskChol 240 mg/dl and greater high riskCholesterol in LDL Calc [Mass/Vol]Ordered By: Franklyn Herman on 01-21-2023 Cholesterol in LDL [Mass/Vol]60 mg/dL0-100[facility] Comment on above:LDL ATP III CLASSIFICATIONLDL less than 100 mg/dL OptimalLDL 100-129 mg/dL Near or above xlnlcneFER740-192 mg/dL Borderline highLDL 160-189 mg/dL HighLDL greater than 189 mg/dL Very highCholesterol in VLDL Calc [Mass/Vol]Ordered By: Franklyn Herman on 71-52-6685Heccjhuvxcm in VLDL [Mass/Vol] 50 mg/dLGood Samaritan HospitalCreatinine [Mass/volume] in Serum or PlasmaOrdered By: Phillip Benjamin on 99-65-5097Tyckfhdgtm [Mass/Vol]0.52 mg/dL0.60-1.20[facility] HospitalGlucose [Mass/volume] in Serum or PlasmaOrdered By: Phillip Benjamin on 41-33-6929Norcoxq [Mass/Vol]84 mg/dL 70-100[facility] HospitalComment on above:ADA recommended reference rangeRandom Glucose Reference Range is dependent on time and content of last meal. Glucose of more than 200 mg/dL in a nonstressed, ambulatory subject supports the diagnosisof Diabetes Mellitus.No Panel InformationOrdered By: Phillip Benjamin on 41-55-6645Wbsblywrh GFR (CKD-EPI)> 60.0 mL/Min [facility] HospitalPharmacy Creatinine Clearance (ChemN/AFMercy Health Allen HospitalNo Panel Informationon 01-21-2023> 60.0NormalMP-[facility] [address] Work Phone: [phone]\S\10.5Rtmsom5.0-15.0MP-[facility] [employer] [address] DO Work Phone: [phone]\S\9.5Xychyd7.6-10.3MP-[facility] [employer] [address] DO Work Phone: [phone]\S\28.2Ueyotl68.0-31.0MP-[facility] HospitalP4RCPhillips[facility] [address] DO Work Phone: [phone]\S\671Bfqeoi92-932WP-Ysggj [place] iStreamPlanetSaint Alexius HospitalPhillips[facility] [address] DO Work Phone: [phone]\S\4.3Znqdkm4.5-5.1MP-[facility] [employer] [employer] [address] DO Work Phone: [phone]\S\275Zwftsd216-277XE-Alrmj [place] HeartP4RCPhillips[place] [address] DO Work Phone: [phone]\S\0.52below low threshold0.60-1.20MP-[facility] [address] DO Work Phone: [phone]\S\1Uawxrk9-55GX-LtmngOwatonna Hospitalwalk [address] DO Work Phone: [phone]\S\77Eumalb27-985SV-Ssyil [place] HeartP4RCPhillips[place] [address] DO Work Phone: Comment on above:Random Glucose Reference Range is dependent on time and content of last meal. Glucose of more than 200 mg/dL in a nonstressed, ambulatory subject supports the diagnosis of Diabetes Mellitus. ADA recommended reference range0.24\S\0.24below low threshold0.45-5.33MP-[facility] [address] DO Work Phone: [phone]\S\41.7Ssbiuc05-944QZ-Bogtp [place] [facility] [address] DO Work Phone: Comment on above:VITAMIN D STATUS 25(OH)VITAMIN D RANGE (ng/mL) Deficient <20 Insufficient 20 to <30 Sufficient 30 to 100 Reference: Kirby MF,Adonay NC, Shantelle HOLLOWAY, et al. Evaluation,treatment, and prevention of vitamin D deficiency; an Endocrine Society clinical practice guideline. JCEM. 2010;96(7):1911-30.PERFORMED BY:[facility], [place] [phone] MEDICAL DIRECTORWENDY CLARK M.D.Potassium [Moles/volume] in Serum or PlasmaOrdered By: Phillip Benjamin on 44-68-1376Ssqrgzyue [Moles/Vol] 4.3 mmol/L3.5-5.1FProMedica Flower Hospitalerum or plasma anion gap determinationOrdered By: Phillip Benjamin on 64-34-9691Bqofw gap [Moles/Vol] 10.1 mmol/L6.0-15.0[facility] Cincinnatierum or plasma high density lipoprotein (HDL) cholesterol measurementOrdered By: Franklyn Herman on 79-99-2126Gkkiypfwwsn in HDL [Mass/Vol]42 mg/tN90-15FslbgtjlvGood Samaritan HospitalComment on above:HDL CHOL ATP-III CLASSIFICATION Cardiovascular RiskHDL > or equal to 60 mg/dL LOWHDL < 40 mg/dL HIGHSerum or plasma total cholesterol/high density lipoprotein (HDL) cholesterol mass ratOrdered By: Franklyn Herman on 96-74-7067Xwjjcdxoekt.total/Cholesterol in HDL [Mass ratio]3.6 {ratio}<5.0[facility] Cincinnatiodium [Moles/volume] in Serum or PlasmaOrdered By: Phillip Benjamin on 27-74-6779Xzjmuk [Moles/Vol]139 mmol/L 136-145[facility] HospitalThyrotropin [Units/volume] in Serum or PlasmaOrdered By: Phillip Benjamin on 80-36-4276JTY Qn0.24 m[IU]/L0.45-5.33 [facility] HospitalTriglyceride [Mass/volume] in Serum or Plasma Ordered By: Franklyn Herman on 11-94-1076Wbfqdoncprjp [Mass/Vol]254 mg/dL0-149 [facility] HospitalComment on above:TRIG ATP III CLASSIFICATIONTRIG less than 150 mg/dL NormalTRIG 150-199 mg/dL Borderline highTRIG 200-500 mg/dL High TRIG greater than 500 mg/dL Very highStandard traceable to the Center for Disease Conrtrol and Prevention (CDC) test method. Urea nitrogen [Mass/volume] in Serum or PlasmaOrdered By: Phillip Benjamin on 99-18-2059Zhkg nitrogen [Mass/Vol]8 mg/dL7-[facility] Vitamin D+Metabolites [Mass/volume] in Serum or PlasmaOrdered By: Phillip Benjamin on 59-13-2360Zuhoxjm D+Metabolites [Mass/Vol]41.7 ng/fR27-019 [facility] HospitalComment on above:VITAMIN D STATUS 25(OH)VITAMIN D RANGE (ng/mL) Deficient <20 Insufficient 20 to <61Uulwmdmoge35 to 100Reference: Kirby GALVAN,Adonay INMAN, Shantelle HOLLOWAY, et al. Evaluation,treatment, and prevention of vitamin D deficiency; an Endocrine Society clinical practice guideline. JCEM. 2010; 96(7):1911-30.Activated partial thromboplastin time (aPTT) in platelet poor plasma by coagulation a Ordered By: Mariya Kumair on 17-70-4653sOBY Coag (PPP) [Time]30.5 s25.1-36.5 [facility] HospitalBasophils Auto (Bld) [#/Vol]Ordered By: Mariya Kumari on 98-09-9927Vjykdflsf (Bld) [#/Vol]0.1 10*3/uL0.0-0.2FMercy Health Allen HospitalBasophils/100 WBC Auto (Bld)Ordered By: Mariya Kumari on 69-03-2416Xaqbwsjsi/100 WBC (Bld)1.3 %.[facility] Calcium [Mass/volume] in Serum or PlasmaOrdered By: Mariya Kumari on 85-88-3374Wcakpts [Mass/Vol]8.4 mg/dL8.6-10.3FMercy Health Allen Hospital Carbon dioxide, total [Moles/volume] in Serum or PlasmaOrdered By: Mariya Kumari on 13-32-2437QE9 [Moles/Vol]28.0 mmol/L21.0-31.0[facility] HospitalChloride [Moles/volume] in Serum or PlasmaOrdered By: Mariya Kumari on 02-31-2828Hpsgjqlc [Moles/Vol]104 mmol/O26-815CzqzzhwvzGood Samaritan HospitalCreatinine [Mass/volume] in Serum or PlasmaOrdered By: Mariya Kumari on 46-71-2667Iogzkdrbmt [Mass/Vol]0.56 mg/dL0.60-1.20[facility] HospitalEosinophils Auto (Bld) [#/Vol]Ordered By: Mariya Kumari on 15-68-9533Jezziaadtlo (Bld) [#/Vol]0.1 10*3/uL0.0-0.45[facility] HospitalEosinophils/100 WBC Auto (Bld)Ordered By: Mariya Kumari on 97-72-5062Nqlwyfbshlb/100 WBC (Bld)1.5 %.[facility] HospitalErythrocyte distribution width Auto (RBC) [Ratio]Ordered By: Mariya Kumari on 65-19-3170Sfyicubnsid distribution width (RBC) [Ratio]14.4 % 11.9-15.3FMercy Health Allen HospitalGlucose [Mass/volume] in Serum or PlasmaOrdered By: Mariya Kumari on 88-53-8863Wwyahkt [Mass/Vol]87 mg/vC57-038 [facility] HospitalComment on above:ADA recommended reference rangeRandom Glucose Reference Range is dependent on time and content of last meal. Glucose of more than 200 mg/dL in a nonstressed, ambulatory subject supports the diagnosisof Diabetes Mellitus.Hematocrit Auto (Bld) [Volume fraction]Ordered By: Mariya Kumari on 09-55-2297Kxvhrdfjet (Bld) [Volume fraction]40.1 %34.0-46.4FMercy Health Allen HospitalHemoglobin [Mass/volume] in BloodOrdered By: Mariya Kumari on 40-01-5749Jredvmqbti (Bld) [Mass/Vol]13.3 g/dL11.8-15.4FMercy Health Allen HospitalLaboratory - CoagulationOrdered By: Mariya Kumari on 90-03-6789BI Coag (PPP) [Time]10.9 s 9.0-12.9[facility] HospitalLeukocytes [#/volume] corrected for nucleated erythrocytes in Blood by Automated counOrdered By: Mariya Kumari on 17-89-0494QCJ corrected for nucl RBC Auto (Bld) [#/Vol]9.6 10*3/uL3.8-11.6 [facility] HospitalLymphocytes Auto (Bld) [#/Vol]Ordered By: Mariya Kumari on 92-32-2134Kgfsogclser (Bld) [#/Vol]3.2 10*3/uL1.00-4.8 [facility] HospitalLymphocytes/100 WBC Auto (Bld)Ordered By: Mariya Kumari on 20-95-0041Mllgycxcfew/100 WBC (Bld)33.6 %.[facility] Auto (RBC) [Entitic mass]Ordered By: Mariya Kumari on 73-41-5922TPA (RBC) [Entitic mass]28.8 pg24.7-34.3FSelect Medical Specialty Hospital - Boardman, IncHC Auto (RBC) [Mass/Vol]Ordered By: Mariya Kumari on 53-39-0005VJNR (RBC) [Mass/Vol]33.1 g/dL32.0-35.0[facility] HospitalMCV Auto (RBC) [Entitic vol]Ordered By: Mariya Kumari on 24-22-0945IQR (RBC) [Entitic vol]87.2 eK11-416DghnidqrwGood Samaritan HospitalMagnesium [Mass/volume] in Serum or PlasmaOrdered By: Mariya Kumari on 03-64-5687Ebrklqtym [Mass/Vol]1.9 mg/dL1.9-2.7FMercy Health Allen HospitalMonocyte distribution width [Entitic volume] in Blood by AutomatedOrdered By: Mariya Kumari on 12-30-2022 Monocyte distribution width Auto (Bld) [Entitic vol]16.70 %0.00-20.00[facility] HospitalMonocytes Auto (Bld) [#/Vol]Ordered By: Mariya Kumari on 23-75-5754Wuqwrjbzf (Bld) [#/Vol]0.4 10*3/uL0.0-0.8[facility] HospitalMonocytes/100 WBC Auto (Bld)Ordered By: Mariya Kumari on 12-30-2022 Monocytes/100 WBC (Bld)4.0 %.[facility] HospitalNatriuretic peptide B [Mass/Vol]Ordered By: Mariya Kumari on 40-63-5205Ljsnneqbaur peptide B (Bld) [Mass/Vol]55.0 pg/mL5-100[facility] Neutrophils Auto (Bld) [#/Vol]Ordered By: Mariya Kumari on 12-30-2022 Neutrophils (Bld) [#/Vol]5.7 10*3/uL1.8-7.7FMercy Health Allen Hospital Neutrophils/100 WBC Auto (Bld)Ordered By: Mariya Kumari on 12-30-2022 Neutrophils/100 WBC (Bld)59.6 %.[facility] HospitalNo Panel InformationOrdered By: Mariya Kumari on 06-73-4102I-Dimer Quantitative (PE/DVT)334 ng/mL0-243[facility] HospitalComment on above:The reference range for D-dimer is <243 ng/mL D-dimer units.D-dimer results must be used in conjunction with a clinicalpretest probability (PTP) assessment model for deep veinthrombosis (DVT) and pulmonary embolism (PE). Results <230ng/mL d- dimer units can be used as a negative predictor inpatients with low or moderate probability for DVT/PE.Results above the exclusion threshold of 230 ng/ml D- dimerunits for DVT/PE may indicate the need for furtherdiagnostic testing.D- Dimer can be increased in hospitalized patients due toco-morbid conditions. Estimated GFR (CKD-EPI)> 60.0 mL/MinGood Samaritan HospitalPharmacy Creatinine Clearance (Kdqh726.83[facility] HospitalNucleated erythrocytes [Presence] in Blood by Automated countOrdered By: Mariya Kumari on 94-90-1208Grwwwrpzr RBC Auto Ql (Bld)0.1 /100{WBC}0-0.5FMercy Health Allen HospitalPlatelet mean volume Auto (Bld) [Entitic vol]Ordered By: Mariya Kumari on 68-81-4458Mrqbbwvb mean volume (Bld) [Entitic vol]8.6 fL6.3-10.7 [facility] HospitalPlatelet poor plasma international normalized ratio (INR) by coagulation assay (relatOrdered By: Mariya Kumari on 38-57-9893DNP Coag (PPP) [Relative time]0.9 {INR}[facility] HospitalComment on above:INR Therapeutic Range A) Pre- and Peroperative OAT started two weeks before surgery. NOT HIP SURGERY: 1.5 - 2.5 HIP SURGERY: 2 - 3B) Primary and secondary prevention of venous THROMBOSIS: 2 - 3C) Active venous thrombosis, pulmonary embolismand prevention of recurrent venous thrombosis: 2 - 3D) Prevention of arterial thromboembolismincluding patients with mechanical heart valves: 3 - 4.5Platelets Auto (Bld) [#/Vol]Ordered By: Mariya Kumari on 61-08-4342Ptgoccnnu (Bld) [#/Vol]348 10*3/fP899-501JmmsplaneGood Samaritan HospitalPotassium [Moles/volume] in Serum or PlasmaOrdered By: Mariya Kumari on 16-47-5464Fumfzcgbh [Moles/Vol]3.7 mmol/L3.5-5.1FMercy Health Allen HospitalRBC Auto (Bld) [#/Vol]Ordered By: Mariya Kumari on 56-04-3712QCQ (Bld) [#/Vol]4.60 10*6/uL3.60-5.00[facility]innatierum or plasma anion gap determinationOrdered By: Mariya Kumari on 70-80-2145Wchsj gap [Moles/Vol]11.7 mmol/L6.0-15.0[facility] Cincinnatiodium [Moles/volume] in Serum or PlasmaOrdered By: Mariya Kumari on 12-30-2022 Sodium [Moles/Vol]140 mmol/U676-152JnwyxyuemGood Samaritan HospitalTroponin I.cardiac [Mass/volume] in Serum or Plasma by Detection limit <= 0.01 ng/Ordered By: Mariya Kumari on 14-11-9929Ialixgzd I.cardiac DL <= 0.01 ng/mL [Mass/Vol]2.4 pg/mL0.0-15.0[facility] HospitalUrea nitrogen [Mass/volume] in Serum or PlasmaOrdered By: Mariya Kumari on 32-62-2681Ymtd nitrogen [Mass/Vol]7 mg/dL7-25[facility] HospitalWBC Auto (Bld) [#/Vol]Ordered By: Mariya Kumari on 09-74-5550HPR (Bld) [#/Vol]9.6 10*3/uL 3.8-11.6FMercy Health Allen HospitalActivated partial thromboplastin time (aPTT) in platelet poor plasma by coagulation aOrdered By: Josué Napier on 80-02-7633tATW Coag (PPP) [Time]31.8 s25.1-36.5FMercy Health Allen Hospital Alanine aminotransferase [Enzymatic activity/volume] in Serum or PlasmaOrdered By: Josué Napier on 62-86-6938GBG [Catalytic activity/Vol]12 U/L7-52[facility] HospitalAlbumin [Mass/volume] in Serum or Plasma by Bromocresol green (BCG) dye binding methoOrdered By: Josué Napier on 80-55-3202Vqakpkt BCG dye [Mass/Vol]4.4 g/dL3.5-5.7FMercy Health Allen HospitalAlkaline phosphatase [Enzymatic activity/volume] in Serum or PlasmaOrdered By: Josué Napier on 61-41-6598NYQ [Catalytic activity/Vol]49 U/J20-081QtqymregoGood Samaritan HospitalAmphetamine Screen Ql (U)Ordered By: Josué Napier on 12-20-2022 Amphetamines Ql (U)NegativeNegativeGood Samaritan HospitalAspartate aminotransferase [Enzymatic activity/volume] in Serum or PlasmaOrdered By: Josué Napier on 56-10-7029JEB [Catalytic activity/Vol]11 U/P24-74BywekvzsiGood Samaritan HospitalBarbiturates [Presence] in Urine by Screen methodOrdered By: Josué Napier on 37-40-5189Gexrhbmqxayj Screen Ql (U)NegativeNegative [facility] HospitalBasophils Auto (Bld) [#/Vol]Ordered By: Josué Napier on 98-38-2869Qqiivfffn (Bld) [#/Vol]0.0 10*3/uL0.0-0.2FMercy Health Allen HospitalBasophils/100 WBC Auto (Bld)Ordered By: Josué Napier on 12-20-2022 Basophils/100 WBC (Bld)0.2 %.[facility] HospitalBenzodiazepines Screen Ql (U)Ordered By: Josué Napier on 36-48-6541Zdiwpzvzxaindtd Ql (U) NegativeNegativeGood Samaritan HospitalBenzoylecgonine [Presence] in Urine by Screen methodOrdered By: Josué Napier on 08-60-8100Fesufixtqpgkbks Screen Ql (U)NegativeNegativeGood Samaritan HospitalBilirubin Test strip Ql (U)Ordered By: Josué Napier on 97-10-5704Gtxdaydlf Ql (U)Negative NegativeGood Samaritan HospitalBilirubin.total [Mass/volume] in Serum or PlasmaOrdered By: Josué Napier on 12-74-2433Fgijuozor [Mass/Vol]0.3 mg/dL 0.3-1.0[facility] HospitalCalcium [Mass/volume] in Serum or Plasma Ordered By: Josué Napier on 31-52-1497Eohjwhe [Mass/Vol]9.2 mg/dL8.6-10.3 [facility] HospitalCannabinoids [Presence] in Urine by Screen methodOrdered By: Josué Napier on 29-16-2236Rmjetjabhofq Screen Ql (U)Negative NegativeGood Samaritan HospitalComment on above:These are unconfirmed results and should not be used for legal purposes. Drug Cut-Off Concentration: AMPH 1000 ng/mL MEKHI 200 ng/mL NURY 200 ng/mL COCM 300 ng/mL OP 300 ng/mL PCP 25 ng/mL THC 20 ng/mLCarbon dioxide, total [Moles/volume] in Serum or Plasma Ordered By: Josué Napier 25-90-4711DO3 [Moles/Vol]28.6 mmol/L21.0-31.0 [facility] HospitalChloride [Moles/volume] in Serum or Plasma Ordered By: Josué Napier 65-53-1675Ptwnrueo [Moles/Vol]104 mmol/L98-107 [facility] HospitalColor Auto (U)Ordered By: Josué Napier on 12-22-7916Nrliu (U)YellowYellowGood Samaritan HospitalCreatine kinase [Enzymatic activity/volume] in Serum or PlasmaOrdered By: Josué Napier 03-42-7033CQ [Catalytic activity/Vol]46 U/T41-378YdxqvxitvGood Samaritan HospitalCreatinine [Mass/volume] in Serum or PlasmaOrdered By: Josué Napier on 45-20-2393Eoxvnalhih [Mass/Vol]0.57 mg/dL0.60-1.20[facility] HospitalEosinophils Auto (Bld) [#/Vol]Ordered By: Josué Napier on 12-20-2022 Eosinophils (Bld) [#/Vol]0.1 10*3/uL0.0-0.45[facility] Eosinophils/100 WBC Auto (Bld)Ordered By: Josué Napier on 12-20-2022 Eosinophils/100 WBC (Bld)1.1 %.[facility] HospitalErythrocyte distribution width Auto (RBC) [Ratio]Ordered By: Josué Napier on 12-20-2022 Erythrocyte distribution width (RBC) [Ratio]14.4 %11.9-15.3FMercy Health Allen HospitalGlobulin Calc (S) [Mass/Vol]Ordered By: Josué Napier on 12-20-2022 Globulin (S) [Mass/Vol]3.1 g/dLGood Samaritan HospitalGlucose [Mass/volume] in Serum or PlasmaOrdered By: Josué Napier 44-53-0702Raypmlw [Mass/Vol]97 mg/eY13-867TdczcebvfGood Samaritan HospitalComment on above:ADA recommended reference rangeRandom Glucose Reference Range is dependent on time and content of last meal. Glucose of more than 200 mg/dL in a nonstressed, ambulatory subject supports the diagnosisof Diabetes Mellitus.Hematocrit Auto (Bld) [Volume fraction]Ordered By: Josué Napier on 32-50-0408Nrgbffuqjk (Bld) [Volume fraction]40.7 %34.0-46.4FMercy Health Allen HospitalHemoglobin [Mass/volume] in BloodOrdered By: Josué Napier 81-40-4675Gmslhqlids (Bld) [Mass/Vol]13.7 g/dL11.8-15.4FMercy Health Allen HospitalKetones Auto test strip (U) [Mass/Vol]Ordered By: Josué Napier on 31-46-6748Yoejzzo (U) [Mass/Vol] NegativeNegativeGood Samaritan HospitalLaboratory - CoagulationOrdered By: Josué Napier on 93-23-8977EE Coag (PPP) [Time]11.8 s9.0-12.9[facility] HospitalLeukocytes [#/volume] corrected for nucleated erythrocytes in Blood by Automated counOrdered By: Josué Napier on 21-71-4651WRL corrected for nucl RBC Auto (Bld) [#/Vol]10.0 10*3/uL3.8-11.6FMercy Health Allen HospitalLymphocytes Auto (Bld) [#/Vol]Ordered By: Josué Napier on 08-53-0901Wgoljoaogfb (Bld) [#/Vol]2.7 10*3/uL1.00-4.8[facility] HospitalLymphocytes/100 WBC Auto (Bld)Ordered By: Josué Napier on 12-20-2022 Lymphocytes/100 WBC (Bld)26.9 %.[facility] Auto (RBC) [Entitic mass]Ordered By: Josué Napier on 28-29-4492JUS (RBC) [Entitic mass]29.2 pg24.7-34.3FMercy Health Allen HospitalMCHC Auto (RBC) [Mass/Vol]Ordered By: Josué Napier on 21-09-8848GQTR (RBC) [Mass/Vol]33.6 g/dL32.0-35.0[facility] HospitalMCV Auto (RBC) [Entitic vol]Ordered By: Josué Napier on 01-77-1153AHE (RBC) [Entitic vol]86.9 yY27-767QeryqujyxGood Samaritan Hospital Magnesium [Mass/volume] in Serum or PlasmaOrdered By: Josué Napier on 12-20-2022 Magnesium [Mass/Vol]1.8 mg/dL1.9-2.7FMercy Health Allen HospitalMonocyte distribution width [Entitic volume] in Blood by AutomatedOrdered By: Josué Napier on 43-86-9737Fnjdgrmq distribution width Auto (Bld) [Entitic vol]18.26 % 0.00-20.00[facility] HospitalMonocytes Auto (Bld) [#/Vol]Ordered By: Josué Napier on 79-16-3729Xtjbvsrbi (Bld) [#/Vol]0.4 10*3/uL0.0-0.8[facility] HospitalMonocytes/100 WBC Auto (Bld)Ordered By: Josué Napier on 94-66-4367Owjhodqgs/100 WBC (Bld)4.1 %.[facility] Neutrophils Auto (Bld) [#/Vol]Ordered By: Josué Napier on 57-27-2629Ckiiwpgvwpb (Bld) [#/Vol]6.8 10*3/uL1.8-7.7FMercy Health Allen HospitalNeutrophils/100 WBC Auto (Bld)Ordered By: Josué Napier on 19-47-0038Boowiulavjb/100 WBC (Bld) 67.7 %.[facility] HospitalNitrite Test strip Ql (U)Ordered By: Josué Napier on 85-07-2628Ggeyijw Ql (U)NegativeNegativeGood Samaritan HospitalNo Panel InformationOrdered By: Josué Napier on 12-20-2022 Estimated GFR (CKD-EPI)> 60.0 mL/MinGood Samaritan HospitalPharmacy Creatinine Clearance (Lsrl135.35[facility] HospitalNucleated erythrocytes [Presence] in Blood by Automated countOrdered By: Josué Napier on 88-30-5563Gdivexcxq RBC Auto Ql (Bld)0.1 /100{WBC}0-0.5FMercy Health Allen HospitalOpiates [Presence] in Urine by Screen methodOrdered By: Josué Napier on 05-07-1630Wcwxvlx Screen Ql (U)NegativeNegativeGood Samaritan HospitalPhencyclidine Screen Ql (U)Ordered By: Josué Napier on 12-20-2022 Phencyclidine Ql (U)NegativeNegSouthview Medical CenterPlatelet mean volume Auto (Bld) [Entitic vol]Ordered By: Josué Napier on 12-20-2022 Platelet mean volume (Bld) [Entitic vol]8.3 fL6.3-10.7FMercy Health Allen HospitalPlatelet poor plasma international normalized ratio (INR) by coagulation assay (relatOrdered By: Josué Napier on 13-20-9345YQD Coag (PPP) [Relative time] 1.0 {INR}[facility] HospitalComment on above:INR Therapeutic Range A) Pre- and Peroperative OAT started two weeks before surgery. NOT HIP SURGERY: 1.5 - 2.5 HIP SURGERY: 2 - 3B) Primary and secondary prevention of venous THROMBOSIS: 2 - 3C) Active venous thrombosis, pulmonary embolismand prevention of recurrent venous thrombosis: 2 - 3D) Prevention of arterial thromboembolismincluding patients with mechanical heart valves: 3 - 4.5Platelets Auto (Bld) [#/Vol]Ordered By: Josué Napier on 91-62-4204Xbjlekeoy (Bld) [#/Vol] 349 10*3/fD807-828ZwcimnsxgGood Samaritan HospitalPotassium [Moles/volume] in Serum or PlasmaOrdered By: Josué Napier on 13-84-4352Nhnxwnbic [Moles/Vol]3.9 mmol/L3.5-5.1FMercy Health Allen HospitalProtein Auto test strip (U) [Mass/Vol]Ordered By: Josué Napier on 50-59-8506Betaktn (U) [Mass/Vol]Negative NegativeGood Samaritan HospitalProtein [Mass/volume] in Serum or PlasmaOrdered By: Josué Napier on 43-37-9585Elbarkc [Mass/Vol]7.5 g/dL6.4-8.9 [facility] HospitalRBC Auto (Bld) [#/Vol]Ordered By: Josué Napier on 20-66-5019PCA (Bld) [#/Vol]4.68 10*6/uL3.60-5.00[facility] Cincinnatierum or plasma albumin/globulin mass ratioOrdered By: Josué Napier on 86-34-3189Ejtlmfi/Globulin [Mass ratio]1.4 {ratio}[facility] Cincinnatierum or plasma anion gap determinationOrdered By: Josué Napier on 00-93-2673Gulwl gap [Moles/Vol]10.3 mmol/L6.0-15.0[facility] Cincinnatiodium [Moles/volume] in Serum or PlasmaOrdered By: Josué Napier on 36-77-0896Scyews [Moles/Vol]139 mmol/U486-746IharxfuecGood Samaritan Hospital Specific gravity Auto test strip (U) [Rel density]Ordered By: Josué Napier on 35-97-9577Zmbitogv gravity (U) [Rel density]1.0051.001-1.030[facility] HospitalThyrotropin [Units/volume] in Serum or PlasmaOrdered By: Josué Napier on 76-33-2791GLF Qn0.23 m[IU]/L0.45-5.33[facility] Thyroxine (T4) [Mass/volume] in Serum or PlasmaOrdered By: Josué Napier on 60-77-0520L3 [Mass/Vol]9.01 ug/dL5.39-11.82[facility] Troponin I.cardiac [Mass/volume] in Serum or Plasma by Detection limit <= 0.01 ng/Ordered By: Josué Napier on 40-26-7442Yrtdfklv I.cardiac DL <= 0.01 ng/mL [Mass/Vol]< 2.3 pg/mL0.0-15.0[facility] HospitalUrea nitrogen [Mass/volume] in Serum or PlasmaOrdered By: Josué Naiper on 86-26-0189Ukei nitrogen [Mass/Vol]9 mg/dL7-25[facility] HospitalUrine clarity by refractometry automatedOrdered By: Josué Napier on 11-96-2266Jhdlsbw Refractometry automated (U)ClearCleGood Samaritan HospitalUrine glucose measurement by automated test strip (mass/volume)Ordered By: Josué Napier on 26-74-4044Dhddubr Auto test strip (U) [Mass/Vol]Normal mg/dLRegency Hospital CompanyUrine hemoglobin detection by automated test stripOrdered By: Josué Napier 76-07-0544Iqrplbrhyv Auto test strip Ql (U) NegativeNegSouthview Medical CenterUrine leukocyte esterase detection by automated test stripOrdered By: Josué Napier on 39-18-2567Geinqmurz esterase Auto test strip Ql (U)NegativeNegSouthview Medical CenterUrobilinogen Auto test strip (U) [Mass/Vol]Ordered By: Josué Napier on 41-07-0656Fhnpzgieombs (U) [Mass/Vol]Normal mg/dLNoMiddletown HospitalWBC Auto (Bld) [#/Vol]Ordered By: Josué Napier on 58-15-2857OOO (Bld) [#/Vol]10.0 10*3/uL3.8-11.6FMercy Health Allen HospitalpH Auto test strip (U)Ordered By: Josué Napier on 27-01-1265eJ (U)6.5 [pH]5.0-9.0[facility] HospitalOffice Visit (Cardiology)on 16-78-0488Syrbdo-up visit Diagnoses/Problems Assessed Shortness of breath (786.05) (R06.02) Palpitations (785.1) (R00.2) PVC (premature ventricular contraction) (427.69) (I49.3) Atrial tachycardia (427.89) (I47.1) Former smoker (V15.82) (Z87.891) quit 01/28/22 Morbid obesity with BMI of 40.0-44.9, adult (278.01,V85.41) (E66.01,Z68.41) Hypothyroidism (244.9) (E03.9) Chest pain (786.50) (R07.9) Anxiety (300.00) (F41.9) Orders Anxiety, Palpitations, PVC (premature ventricular contraction) Basic Metabolic Panel; Status:Active - Retrospective Authorization; Requested for:[id number]; TSH - Thyroid Stimulating Hormone, Serum; Status:Active - Retrospective Authorization; Requested for:[id number]; Vitamin D 25-Hydroxy; Status:Need Information - ABN Disposition,Retrospective Authorization; Requested for:16Tfs6125; Morbid obesity with BMI of 40.0-44.9, adult Healthy Weight Tips; Status:Complete - Retrospective Authorization; Done: [id number] Some eating tips that can help you lose weight.; Status:Complete - Retrospective Authorization; Done: [id number] Palpitations Renew: Metoprolol Succinate ER 50 MG Oral Tablet Extended Release 24 Hour; TAKE 1 TABLET BY MOUTH EVERY DAY PVC (premature ventricular contraction) IO EKG Electrocardiogram- 12 Lead; Status:Complete; Done: 48Odz8966 SocHx: Former smoker Tobacco Use Screening; Status:Complete; Done: 97Qcj2149 Patient Instructions Please bring all medicines, vitamins, [...] have nerve ablations in back with the [place] [facility]. The provider reviewed the following [...] TWICE A DAY Vitamin D3 1.25 MG (80586 UT) Oral CapsuleTAKE 1 CAPSULE Daily Allergies Medication No Known Drug Allergies Recorded By: Suzie Turner; 10/21/2017 2:10:00 PM Social History Problems Daily caf (more content not included)...NormalUH TouchworksTobacco Screening.on 57-58-4008Hubfxfn use status CPHSb) [facility] [address] DO Work Phone: Echocardiogramon 74-52-1358KcybrepgmsachwouApjm[address], [place] [address] TRANSTHORACIC ECHOCARDIOGRAM REPORT Patient Name: LUPE Horne Physician: [id number] Azam Mortensen MD Study Date: 11/25/2022 Referring Physician: PHILLIP BENJAMIN MRN/PID: [id number] PCP: Donya Billings MD Accession/Order#: [id number] Department Location: [facility] Date of : 1975 Fellow: Gender: F Nurse: Admit Date: Configurator: Shila Tripp RD, T Height: 170.18 cm CC Report to: Weight: 121.56 kg Study Type: Echocardiogram BSA: 2.29 m2 Blood Pressure: 120 /82 mmHg Diagnosis/ICD: I47.1-Supraventricular tachycardia; I49.3-Ventricular premature depolarization; R00.2-Palpitations Indication: Chest Pain, Former Smoker, Morbid Obesity, Hypothyroid, Anxiety, Shortness of Breath, Marijuana Use Procedure/CPT: Echo Complete w Full Doppler-[id number] Study Detail: The following Echo studies were [...] visualized. There is no indication of pulmonic valveregurgitation. Pericardium: There is no pericardial effusion noted. [...] 0.8 m/s (0.6-0.9m/s) PV Max P.8 mmHg [id number] Azam Mortensen MD Electronically signed on 11/25/2022 at 5:29:01 PM Final NormalUH Adventhealth Palm CoastTroponin I.cardiac [Mass/volume] in Serum or Plasma by Detection limit <= 0.01 ng/Ordered By: Yogi Michaels on 52-83-1289Ntybvtyt I.cardiac DL <= 0.01 ng/mL [Mass/Vol]< 2.3 pg/mL0.0-15.0 [facility] HospitalActivated partial thromboplastin time (aPTT) in platelet poor plasma by coagulation aOrdered By: Yogi Michaels on 11-05-2022 aPTT Coag (PPP) [Time]31.7 s25.1-36.5Fire[facility] Regional Medical CenterBasophils Auto (Bld) [#/Vol]Ordered By: Yogi Michaels on 52-61-6117Qadctvvvd (Bld) [#/Vol]0.1 10*3/uL0.0-0.2FMercy Health Allen HospitalBasophils/100 WBC Auto (Bld)Ordered By: Yogi Michaels on 05-24-3957Jrliyiezn/100 WBC (Bld)0.8 %. [facility] HospitalCalcium [Mass/volume] in Serum or PlasmaOrdered By: Yogi Michaels on 74-73-4821Ucxwadu [Mass/Vol]8.6 mg/dL8.6-10.3FMercy Health Allen HospitalCarbon dioxide, total [Moles/volume] in Serum or Plasma Ordered By: Yogi Michaels on 46-57-9143WA0 [Moles/Vol]26.4 mmol/L21.0-31.0 [facility] HospitalChloride [Moles/volume] in Serum or Plasma Ordered By: Yogi Michaels on 86-81-8018Gvbwsqwg [Moles/Vol]105 mmol/L98-107 [facility] HospitalCreatinine [Mass/volume] in Serum or Plasma Ordered By: Yogi Michaels on 90-25-6798Bdbkaqvspi [Mass/Vol]0.58 mg/dL 0.60-1.20[facility] HospitalEosinophils Auto (Bld) [#/Vol]Ordered By: Yogi Michaels on 28-38-9843Ajruyfzomln (Bld) [#/Vol]0.1 10*3/uL0.0-0.45 [facility] HospitalEosinophils/100 WBC Auto (Bld)Ordered By: Yogi Michaels on 49-20-8260Qbedkbfnwpn/100 WBC (Bld)0.9 %.[facility] HospitalErythrocyte distribution width Auto (RBC) [Ratio]Ordered By: Yogi Michaels on 58-33-1030Xmitgocjead distribution width (RBC) [Ratio]14.2 % 11.9-15.3FMercy Health Allen HospitalGlucose [Mass/volume] in Serum or PlasmaOrdered By: Yogi Michaels on 26-17-4089Nwjnkbr [Mass/Vol]74 mg/iW91-616 [facility] HospitalComment on above:ADA recommended reference rangeRandom Glucose Reference Range is dependent on time and content of last meal. Glucose of more than 200 mg/dL in a nonstressed, ambulatory subject supports the diagnosisof Diabetes Mellitus.Hematocrit Auto (Bld) [Volume fraction]Ordered By: Yogi Michaels on 58-46-2856Sfljjbizbw (Bld) [Volume fraction]39.8 %34.0-46.4FMercy Health Allen HospitalHemoglobin [Mass/volume] in BloodOrdered By: Yogi Michaels on 77-18-3070Qpmhqechfr (Bld) [Mass/Vol]13.8 g/dL11.8-15.4FMercy Health Allen HospitalLaboratory - CoagulationOrdered By: Yogi Michaels on 61-74-8086FY Coag (PPP) [Time]12.6 s 9.0-12.9[facility] HospitalLeukocytes [#/volume] corrected for nucleated erythrocytes in Blood by Automated counOrdered By: Yogi Michaels on 39-66-2351YHX corrected for nucl RBC Auto (Bld) [#/Vol]11.9 10*3/uL3.8-11.6 [facility] HospitalLymphocytes Auto (Bld) [#/Vol]Ordered By: Yogi Michaels on 15-53-9588Sqezrhqncgr (Bld) [#/Vol]2.4 10*3/uL1.00-4.8 [facility] HospitalLymphocytes/100 WBC Auto (Bld)Ordered By: Yogi Michaels on 90-29-9952Veehazehlpx/100 WBC (Bld)20.0 %.[facility] CenterH Auto (RBC) [Entitic mass]Ordered By: Yogi Michaels on 72-62-1920FCB (RBC) [Entitic mass]30.3 pg24.7-34.3FMercy Health Allen HospitalMCHC Auto (RBC) [Mass/Vol]Ordered By: Yogi Michaels on 77-27-9205ACUQ (RBC) [Mass/Vol]34.7 g/dL32.0-35.0[facility] HospitalMCV Auto (RBC) [Entitic vol]Ordered By: Yogi Michaels on 16-84-4416YZP (RBC) [Entitic vol]87.5 iU93-249BmkawtlhtGood Samaritan HospitalMagnesium [Mass/volume] in Serum or PlasmaOrdered By: Yogi Michaels on 29-02-0464Vsvyrbigd [Mass/Vol]1.5 mg/dL1.9-2.7FMercy Health Allen HospitalMonocyte distribution width [Entitic volume] in Blood by AutomatedOrdered By: Yogi Michaels on 11-05-2022 Monocyte distribution width Auto (Bld) [Entitic vol]17.86 %0.00-20.00[facility] HospitalMonocytes Auto (Bld) [#/Vol]Ordered By: Yogi Michaels on 23-93-5794Djxypuumb (Bld) [#/Vol]0.7 10*3/uL0.0-0.8[facility] HospitalMonocytes/100 WBC Auto (Bld)Ordered By: Yogi Michaels on 11-05-2022 Monocytes/100 WBC (Bld)5.8 %.[facility] HospitalNatriuretic peptide B [Mass/Vol]Ordered By: Yogi Michaels on 91-01-5037Qtixvjfjzna peptide B (Bld) [Mass/Vol]16.0 pg/mL5-100[facility] Neutrophils Auto (Bld) [#/Vol]Ordered By: Yogi Michaels on 11-05-2022 Neutrophils (Bld) [#/Vol]8.6 10*3/uL1.8-7.7FMercy Health Allen Hospital Neutrophils/100 WBC Auto (Bld)Ordered By: Yogi Michaels on 11-05-2022 Neutrophils/100 WBC (Bld)72.5 %.[facility] HospitalNo Panel InformationOrdered By: Yogi Michaels on 61-10-5184Rfqdbpoto GFR (CKD-EPI)> 60.0 mL/MinGood Samaritan HospitalPharmacy Creatinine Clearance (Chem 166.57[facility] HospitalNucleated erythrocytes [Presence] in Blood by Automated countOrdered By: Yogi Michaels on 12-43-8331Znudrjtzx RBC Auto Ql (Bld)0.1 /100{WBC}0-0.5FMercy Health Allen HospitalPhosphate [Mass/volume] in Serum or PlasmaOrdered By: Yogi Michaels on 11-05-2022 Phosphate [Mass/Vol]3.9 mg/dL3.7-7.2FMercy Health Allen HospitalPlatelet mean volume Auto (Bld) [Entitic vol]Ordered By: Yogi Michaels on 11-05-2022 Platelet mean volume (Bld) [Entitic vol]8.1 fL6.3-10.7FMercy Health Allen HospitalPlatelet poor plasma international normalized ratio (INR) by coagulation assay (relatOrdered By: Yogi Michaels on 64-33-3455ZZY Coag (PPP) [Relative time]1.1 {INR}[facility] HospitalComment on above:INR Therapeutic Range A) Pre- and Peroperative OAT started two weeks before surgery. NOT HIP SURGERY: 1.5 - 2.5 HIP SURGERY: 2 - 3B) Primary and secondary prevention of venous THROMBOSIS: 2 - 3C) Active venous thrombosis, pulmonary embolismand prevention of recurrent venous thrombosis: 2 - 3D) Prevention of arterial thromboembolismincluding patients with mechanical heart valves: 3 - 4.5Platelets Auto (Bld) [#/Vol]Ordered By: Yogi Michaels on 96-75-8738Inikrigdo (Bld) [#/Vol]336 10*3/oN656-036IqyzddlgyGood Samaritan HospitalPotassium [Moles/volume] in Serum or PlasmaOrdered By: Yogi Michaels on 11-05-2022 Potassium [Moles/Vol]3.5 mmol/L3.5-5.1FMercy Health Allen HospitalRBC Auto (Bld) [#/Vol]Ordered By: Yogi Michaels on 07-93-8173WFK (Bld) [#/Vol]4.55 10*6/uL3.60-5.00[facility] Cincinnatierum or plasma anion gap determinationOrdered By: Yogi Michaels on 23-42-4415Bzjfq gap [Moles/Vol]11.1 mmol/L6.0-15.0[facility] Cincinnatiodium [Moles/volume] in Serum or PlasmaOrdered By: Yogi Womackarthy on 99-31-8019Bnupvg [Moles/Vol]139 mmol/L 136-145[facility] HospitalUrea nitrogen [Mass/volume] in Serum or PlasmaOrdered By: Yogi Womackarthy on 07-97-9150Gyau nitrogen [Mass/Vol]10 mg/dL 7-25[facility] HospitalWBC Auto (Bld) [#/Vol]Ordered By: Yogi Xenia on 46-94-4237VXT (Bld) [#/Vol]11.9 10*3/uL3.8-11.6FMercy Health Allen HospitalCardiac Stress Teston 67-46-8912Ypjdiwu Stress TestNort[address], [place] [address] Exercise Stress Test Patient Name: LUPE PICKARD Ordering Physician: [id number] Phillip Benjamin MD Study Date: 10/28/2022 Reading Physician: [id number] Ric Asher MD, [facility] MRN/PID: [id number] Supervising Physician: [id number] Ric Asher MD, [facility] Accession/Order#: [id number] Referring Physician: PHILLIP BENJAMIN Date of : 1975 PCP: Donya Billings MD Gender: F Fellow: Height: 170.18 cm Nurse: Randall Hinton RN Weight: 121.56 kg Configurator: ALEXANDER BSA: 2.29 m2 Technologist: BMI: 41.98 Additional Staff: kg/m2 Age: 47 years cc report to: Patient Location: cc report to: [id number] Phillip Benjamin MD Study Type: Cardiac Stress Test Diagnosis/ICD: I47.1-Supraventricular tachycardia; R00.2-Palpitations; I49.3-Ventricular premature depolarization Indication: ATACH Procedure/CPT: Stress Test Interpretation-71809; Stress Test Supervision-[id number] Falls Risk: Low: Patient has low risk [...] during the stress exam. The symptoms resolved wit h rest. The blood pressure response was normal. [...] favorable. 2. Adequate level of stress achieved. [id number] Ric Asher MD, [facility] Electronically signed on 10/29/2022 at 1:49:55 PM Final [facility] HospitalCardiac Stress Test-[address] Work Phone: Office Visit (Cardiology)on 44-84-4054Habhtu-up visit Diagnoses/Problems Assessed Palpitations (785.1) (R00.2) PVC [...] TABLET TWICE DAILY. Melato (more content not included)...NormalUH TouchworksTobacco Screening.on 73-22-9431Ivhcgiu use status CPHSb) [facility] [address] Work Phone: Progress Noteson 86-72-1037Cwjmweinpxcmf Authentication Interface Message TextCONSULTED BY: CC: Mid-thoracic back pain HPI: 47yo [...] thoracic spine. Otherwise she can follow up PRN.NormalThe [facility] SystemTranscription Authentication Interface Message TextPatient was identified by name and date of . Susan Lomeli RN Patient at risk for falls:No Falls Risk protocol implemented: NoNormalThe Horizon Medical CenterHealth SystemAlanine aminotransferase [Enzymatic activity/volume] in Serum or PlasmaOrdered By: Kenyetta Dove on 63-63-1490JMQ [Catalytic activity/Vol]14 U/L7-52[facility] HospitalAlbumin [Mass/volume] in Serum or Plasma by Bromocresol green (BCG) dye binding methoOrdered By: Kenyetta Dove on 06-04-3236Jcwdqky BCG dye [Mass/Vol]4.0 g/dL3.5-5.7FMercy Health Allen HospitalAlkaline phosphatase [Enzymatic activity/volume] in Serum or PlasmaOrdered By: Kenyetta Dove on 74-70-4711HOE [Catalytic activity/Vol]43 U/N35-358DkvbpiohkGood Samaritan HospitalAspartate aminotransferase [Enzymatic activity/volume] in Serum or Plasma Ordered By: Kenyetta Dove on 57-65-5888JLC [Catalytic activity/Vol]10 U/L13-39 [facility] HospitalBasophils Auto (Bld) [#/Vol]Ordered By: Kenyetta Dove on 25-14-8604Cyjyxyymn (Bld) [#/Vol]0.0 10*3/uL0.0-0.2FMercy Health Allen HospitalBasophils/100 WBC Auto (Bld)Ordered By: Kenyetta Dove on 25-98-3524Yupgjapmx/100 WBC (Bld)0.5 %.[facility] Bilirubin.total [Mass/volume] in Serum or PlasmaOrdered By: Kenyetta Dove on 06-80-8650Npxwepgdg [Mass/Vol]0.6 mg/dL0.3-1.0[facility] Calcium [Mass/volume] in Serum or PlasmaOrdered By: Kenyetta Dove on 08-10-2022 Calcium [Mass/Vol]9.0 mg/dL8.6-10.3FMercy Health Allen HospitalCarbon dioxide, total [Moles/volume] in Serum or PlasmaOrdered By: Kenyetta Dove on 52-05-8586RB6 [Moles/Vol]29.0 mmol/L21.0-31.0[facility] Chloride [Moles/volume] in Serum or PlasmaOrdered By: Kenyetta Dove on 81-82-3038Hzgvlrlc [Moles/Vol]104 mmol/E44-243ArtaeakcpGood Samaritan Hospital Cholesterol [Mass/volume] in Serum or PlasmaOrdered By: Kenyetta Dove on [id number] [Mass/Vol]145 mg/[id number] Samaritan HospitalComment on above:Chol less than 200 mg/dl low riskChol 201-239 mg/dl borderline riskChol 240 mg/dl and greater high riskCholesterol in LDL Calc [Mass/Vol]Ordered By: Kenyetta Dove [id number] in LDL [Mass/Vol]64 mg/dL0-100Good Samaritan HospitalComment on above:LDL ATP III CLASSIFICATIONLDL less than 100 mg/dL OptimalLDL 100-129 mg/dL Near or above mxtaiuqRZA426-847 mg/dL Borderline highLDL 160-189 mg/dL HighLDL greater than 189 mg/dL Very highCholesterol in VLDL Calc [Mass/Vol]Ordered By: Kenyetta Dove [id number] in VLDL [Mass/Vol]27 mg/dLGood Samaritan HospitalCreatinine [Mass/volume] in Serum or PlasmaOrdered By: Kenyetta Dove [id number] [Mass/Vol]0.52 mg/dL0.60-1.20[facility]ar[facility] HospitalEosinophils Auto (Bld) [#/Vol]Ordered By: Kenyetta Dove on 08-10-2022 Eosinophils (Bld) [#/Vol]0.1 10*3/uL0.0-0.45[facility] Eosinophils/100 WBC Auto (Bld)Ordered By: Kenyetta Dove on 08-10-2022 Eosinophils/100 WBC (Bld)1.3 %.[facility] HospitalErythrocyte distribution width Auto (RBC) [Ratio]Ordered By: Kenyetta Dove on 08-10-2022 Erythrocyte distribution width (RBC) [Ratio]14.6 %11.9-15.3FMercy Health Allen HospitalFollitropin [Units/volume] in Serum or PlasmaOrdered By: Kenyetta Dove on 34-96-7503Hzhfgwirtde Qn5.9 m[IU]/mLGood Samaritan Hospital Comment on above:FEMALE NORMALS (PREMENOPAUSE) MID-FOLLICULAR PHASE: 3.9-8.8 mIU/mL MID-CYCLE PEAK: 4.5-22.5 mIU/mL MID-LUTEAL PHASE: 1.8-5.1 mIU/mLFEMALE NORMALS (POSTMENOPAUSE): 16.7-113.6 mIU/mLMALE NORMALS: 1.3-19.3 mIU/mLGlobulin Calc (S) [Mass/Vol]Ordered By: Kenyetta Dove 89-86-8020Vozftcjz (S) [Mass/Vol]2.3 g/dLGood Samaritan HospitalGlucose [Mass/volume] in Serum or PlasmaOrdered By: Kenyetta Dove 06-09-3851Dczhavl [Mass/Vol]98 mg/dL 74-109[facility] HospitalComment on above:ADA recommended reference rangeRandom Glucose Reference Range is dependent on time and content of last meal. Glucose of more than 200 mg/dL in a nonstressed, ambulatory subject supports the diagnosisof Diabetes Mellitus.Glucose mean value [Mass/volume] in Blood Estimated from glycated hemoglobinOrdered By: Kenyetta Dove on 96-31-3557Lbtvijw glucose Estimated from glycated hemoglobin (Bld) [Mass/Vol]117 mg/dLGood Samaritan HospitalHematocrit Auto (Bld) [Volume fraction]Ordered By: Kenyetta Dove 57-51-8498Reskbeinsi (Bld) [Volume fraction]37.0 %34.0-46.4FMercy Health Allen HospitalHemoglobin A1c percentageOrdered By: Kenyetta Dove 76-82-7113DjH6o (Bld) [Mass fraction]5.7 %4.3-5.6FMercy Health Allen HospitalComment on above:Increased risk for diabetes: 5.7 - 6.4diabetes: >6.4glycemic control for adults with diabetes: &l t;7.0Hemoglobin [Mass/volume] in BloodOrdered By: Kenyetta Dove on 08-10-2022 Hemoglobin (Bld) [Mass/Vol]12.5 g/dL11.8-15.4FMercy Health Allen Hospital Laboratory - Chemistry and Chemistry - challengeOrdered By: Kenyetta Dove on 06-22-0906JTL/1.73 sq M.predicted MDRD (S/P/Bld) [Vol rate/Area]mL/min/{1.73_m2} [facility] HospitalLeukocytes [#/volume] corrected for nucleated erythrocytes in Blood by Automated counOrdered By: Kenyetta Dove on 08-10-2022 WBC corrected for nucl RBC Auto (Bld) [#/Vol]8.3 10*3/uL3.8-11.6FMercy Health Allen HospitalLymphocytes Auto (Bld) [#/Vol]Ordered By: Kenyetta Dove on 96-56-4816Vwarmxildsg (Bld) [#/Vol]2.3 10*3/uL1.00-4.8[facility] HospitalLymphocytes/100 WBC Auto (Bld)Ordered By: Kenyetta Dove on 69-34-4348Xnjeinkjeta/100 WBC (Bld)28.1 %.[facility] CenterH Auto (RBC) [Entitic mass]Ordered By: Kenyetta Dove on 52-91-8019IFX (RBC) [Entitic mass]29.7 pg24.7-34.3FMercy Health Allen HospitalMCHC Auto (RBC) [Mass/Vol]Ordered By: Kenyetta Dove on 98-67-6229VJDQ (RBC) [Mass/Vol]33.7 g/dL 32.0-35.0[facility] HospitalMCV Auto (RBC) [Entitic vol]Ordered By: Kenyetta Dove on 54-06-6942VFE (RBC) [Entitic vol]88.0 pO71-707XhvgarywyGood Samaritan HospitalMicroalbumin [Mass/volume] in UrineOrdered By: Kenyetta Dove on 81-89-2727Hqsggjw DL <= 20 mg/L (U) [Mass/Vol]mg/dL0.0-1.8[facility] HospitalMonocytes Auto (Bld) [#/Vol]Ordered By: Kenyetta Dove on 61-83-6786Smfoleybc (Bld) [#/Vol]0.3 10*3/uL0.0-0.8[facility] HospitalMonocytes/100 WBC Auto (Bld)Ordered By: Kenyetta Dove on 08-10-2022 Monocytes/100 WBC (Bld)3.9 %.[facility] HospitalNeutrophils Auto (Bld) [#/Vol]Ordered By: Kenyetta Dove on 50-77-7819Npvvxnixaqa (Bld) [#/Vol]5.5 10*3/uL1.8-7.7FMercy Health Allen HospitalNeutrophils/100 WBC Auto (Bld) Ordered By: Kenyetta Dove on 53-30-9845Rqyfmmaiwbd/100 WBC (Bld)66.2 %.[facility] HospitalNo Panel InformationOrdered By: Kenyetta Dove on 54-43-6344Wxwhsitv Creatinine Clearance (ChemN/[facility] HospitalNucleated erythrocytes [Presence] in Blood by Automated countOrdered By: Kenyetta Dove on 63-31-7530Zsxfbmvgp RBC Auto Ql (Bld)0.1 /100{WBC}0-0.5 [facility] HospitalPlatelet mean volume Auto (Bld) [Entitic vol] Ordered By: Kenyetta Dove on 89-71-6495Wnhrbneo mean volume (Bld) [Entitic vol] 8.2 fL6.3-10.7FMercy Health Allen HospitalPlatelets Auto (Bld) [#/Vol] Ordered By: Kenyetta Dove on 93-69-1588Irwpqvzge (Bld) [#/Vol]313 10*3/yL381-818 [facility] HospitalPotassium [Moles/volume] in Serum or Plasma Ordered By: Kenyetta Dove on 67-11-2992Nypnmyicr [Moles/Vol]4.1 mmol/L3.5-5.1 [facility] HospitalProtein [Mass/volume] in Serum or PlasmaOrdered By: Kenyetta Dove on 05-13-0338Nyxbblr [Mass/Vol]6.3 g/dL6.4-8.9[facility] HospitalRBC Auto (Bld) [#/Vol]Ordered By: Kenyetta Dove on 25-23-4130PYF (Bld) [#/Vol]4.20 10*6/uL3.60-5.00[facility]atierum or plasma albumin/globulin mass ratioOrdered By: Kenyetta Dove on 10-74-5582Uixkdfi/Globulin [Mass ratio]1.7 {ratio}[facility]atierum or plasma anion gap determinationOrdered By: Kenyetta Dove on 76-49-2535Sjfkg gap [Moles/Vol]10.1 mmol/L6.0-15.0[facility] Cincinnatierum or plasma high density lipoprotein (HDL) cholesterol measurement Ordered By: Kenyetta Dove 74-37-1889Qajzcmrivpj in HDL [Mass/Vol]53 mg/dL 35-85[facility] HospitalComment on above:HDL CHOL ATP-III CLASSIFICATION Cardiovascular RiskHDL > or equal to 60 mg/dL LOWHDL < 40 mg/dL HIGHSerum or plasma lutropin measurement (units/volume)Ordered By: Kenyetta Dove 86-59-4048Iddegbna Qn14.0 m[IU]/mL.[facility] HospitalComment on above:Adult Female: Follicular phase 2.4 - 12.6 Ovulation phase 14.0 - 95.6 Luteal phase 1.0 - 11.4 Postmenopausal 7.7 - 58.5Serum or plasma progesterone measurement (mass/volume)Ordered By: Kenyetta Dove on 73-46-8603Ikscbxeajvsw [Mass/Vol]0.2 ng/mL.[facility] HospitalComment on above:Follicular phase 0.1 - 0.9 Luteal phase 1.8 - 23.9 Ovulation phase 0.1 - 12.0 First trimester 11.0 - 44.3 Second trimester 25.4 - 83.3 Third trimester 58.7 - 214.0 Postmenopausal 0.0 - 0.1Performed at: [facility] [id number] Director: Ramirez Villagomez, Phone: [phone] or plasma total cholesterol/high density lipoprotein (HDL) cholesterol mass rat Ordered By: Kenyetta Dove on 91-32-4967Sozcpgfqpib.total/Cholesterol in HDL [Mass ratio]2.7 {ratio}<5.0[facility] Cincinnatiodium [Moles/volume] in Serum or PlasmaOrdered By: Kenyetta Dove on 04-71-8502Kprzzc [Moles/Vol]139 mmol/X660-137OisuhlxddGood Samaritan HospitalThyrotropin [Units/volume] in Serum or PlasmaOrdered By: Kenyetta Dove on 56-20-4929LSY Qn 0.31 m[IU]/L0.45-5.33[facility] HospitalThyroxine (T4) free [Mass/volume] in Serum or PlasmaOrdered By: Kenyetta Dove on 70-41-9795Rmyq T4 [Mass/Vol]0.80 ng/dL0.61-1.12[facility] HospitalTotal estrogen measurementOrdered By: Kenyetta Dove on 83-84-1490Zfnsudgh [Mass/Vol]310 pg/mL. [facility] HospitalComment on above:Prepubertal < 40 Female Cycle: 1-10 Days 16 - 328 11-20 Days 34 - 501 21-30 Days 48 - 350 Post-Menopausal 40 - 244Performed at: - [facility] [id number] Director: Roger Kenny MD, Phone: [phone] [Mass/volume] in Serum or PlasmaOrdered By: Kenyetta Dove on 08-10-2022 Triglyceride [Mass/Vol]139 mg/dL0-149[facility] HospitalComment on above:TRIG ATP III CLASSIFICATIONTRIG less than 150 mg/dL NormalTRIG 150-199 mg/dL Borderline highTRIG 200-500 mg/dL High TRIG greater than 500 mg/dL Very highStandard traceable to the Center for Disease Conrtrol and Prevention (CDC) test method.Triiodothyronine (T3) Free [Mass/volume] in Serum or PlasmaOrdered By: Kenyetta Dove on 38-54-5324Dpok T3 [Mass/Vol]3.85 pg/mL2.50-3.90[facility] HospitalUrea nitrogen [Mass/volume] in Serum or PlasmaOrdered By: Kenyetta Dove on 94-40-9124Epab nitrogen [Mass/Vol]8 mg/dL7-25[facility] HospitalVitamin D+Metabolites [Mass/volume] in Serum or Plasma Ordered By: Kenyetta Dove on 60-17-1648Olhxwvx D+Metabolites [Mass/Vol]36.0 ng/vV97-394MobrmqabhGood Samaritan HospitalComment on above:VITAMIN D STATUS 25(OH)VITAMIN D RANGE (ng/mL) Deficient <20 Insufficient 20 to <90Szyxtdcdsm42 to 100Reference: Kirby MF,Adonay INMAN, Shantelle HOLLOWAY, et al. Evaluation,treatment, and prevention of vitamin D deficiency; an Endocrine Society clinical practice guideline. JCEM. 2010; 96(7):1911-30.WBC Auto (Bld) [#/Vol]Ordered By: Kenyetta Dove on 59-84-4492ONL (Bld) [#/Vol]8.3 10*3/uL 3.8-11.6FMercy Health Allen HospitalOffice Visit (Cardiology)on 07-28-2022 Follow-up visitDiagnoses/Problems Assessed PVC (premature ventricular contraction) (427.69) (I49.3) [...] visit. 4 months with EKG Retrieve [facility] Chief Complaint LUPE PICKARD is being seen [...] TWICE A DAY Vitamin D3 1.25 MG (43503 UT) Oral CapsuleTAKE 1 CAPSULE Daily Allergies [...] no skin rashes. Neurological: (more content not included)...NormalUH TouchworksTobacco Screening.on 73-66-0041Zqvo risk assessmentc) Not medically indicatedMP-[facility] [employer] 250 DO Work Phone: Tobacco use status CPHSb) NoMP-[facility] [employer] 250 DO Work Phone: Tobacco Screening.YesMP-[facility] [employer] 250 DO Work Phone: No Panel Informationon 05-46-0013RG-[facility] [employer] 250 DO Work Phone: Basophils Auto (Bld) [#/Vol]Ordered By: Steve Coronel on 57-71-6256Afurnwcwl (Bld) [#/Vol]0.1 10*3/uL0.0-0.2FMercy Health Allen HospitalBasophils/100 WBC Auto (Bld)Ordered By: Steve Coronel on 06-21-2022 Basophils/100 WBC (Bld)0.6 %.[facility] HospitalBilirubin Test strip Ql (U)Ordered By: Steve Coronel on 80-02-0132Rjsdeguxk Ql (U)Negative NegativeGood Samaritan HospitalBody fluid albumin measurement (mass/volume)Ordered By: Steve Coronel on 23-59-5844Kmvbnvy (Body fld) [Mass/Vol] 3.7 g/dL3.2-5.5FMercy Health Allen HospitalColor Auto (U)Ordered By: Steve Coronel on 60-14-3605Dmzud (U)YellowYellowGood Samaritan Hospital Creatinine and Glomerular filtration rate.predicted panel (S/P/Bld)Ordered By: Steve Coronel on 63-05-2018Nzyfvqevbt [Mass/Vol]0.51 mg/dL0.44-1.03[facility] HospitalEosinophils Auto (Bld) [#/Vol]Ordered By: Steve Coronel on 17-94-8587Rfxopdrnkla (Bld) [#/Vol]0.1 10*3/uL0.0-0.45[facility] HospitalEosinophils/100 WBC Auto (Bld)Ordered By: Steve Coronel on 06-21-2022 Eosinophils/100 WBC (Bld)1.2 %.[facility] HospitalErythrocyte distribution width Auto (RBC) [Ratio]Ordered By: Steve Coronel on 06-21-2022 Erythrocyte distribution width (RBC) [Ratio]15.0 %11.9-15.3FMercy Health Allen HospitalEstimated glomerular filtration rate (GFR) non- Ordered By: Steve Coronel on 04-43-9565FLJ/1.73 sq M.predicted among non-blacks MDRD (S/P/Bld) [Vol rate/Area]> 60 mL/MinGood Samaritan Hospital Globulin Calc (S) [Mass/Vol]Ordered By: Steve Coronel on 73-70-4824Aqqiekcj (S) [Mass/Vol]3.1 g/dLGood Samaritan HospitalHematocrit Auto (Bld) [Volume fraction]Ordered By: Steve Coronel on 22-50-5053Knqjmsxhet (Bld) [Volume fraction]40.1 %34.0-46.4FMercy Health Allen HospitalHemoglobin [Mass/volume] in BloodOrdered By: Steve Coronel on 53-94-8376Frutsuwdxi (Bld) [Mass/Vol]13.2 g/dL11.8-15.4FMercy Health Allen HospitalKetones Auto test strip (U) [Mass/Vol]Ordered By: Steve Coronel on 22-91-8698Dcvpvor (U) [Mass/Vol] NegativeNegativeGood Samaritan HospitalLaboratory - Chemistry and Chemistry - challengeOrdered By: Steve Coronel on 17-85-6842Bmgify [Catalytic activity/Vol]28.0 U/Q37-55KxesnspiiGood Samaritan HospitalNatriuretic peptide B (Bld) [Mass/Vol]35.0 pg/mL5-100[facility] HospitalLeukocytes [#/volume] corrected for nucleated erythrocytes in Blood by Automated coun Ordered By: Steve Coronel on 11-87-1306TDU corrected for nucl RBC Auto (Bld) [#/Vol]9.5 10*3/uL3.8-11.6FMercy Health Allen HospitalLymphocytes Auto (Bld) [#/Vol]Ordered By: Steve Coronel on 89-32-7152Xlmlozgjugb (Bld) [#/Vol]2.8 10*3/uL1.00-4.8[facility] HospitalLymphocytes/100 WBC Auto (Bld) Ordered By: Steve Coronel on 80-24-8078Ucmejnduequ/100 WBC (Bld)29.5 %.[facility] Auto (RBC) [Entitic mass]Ordered By: Steve Coronel on 64-41-4662YUN (RBC) [Entitic mass]28.7 pg24.7-34.3FSelect Medical Specialty Hospital - Boardman, IncHC Auto (RBC) [Mass/Vol]Ordered By: Steve Coronel on 20-52-1172TVBO (RBC) [Mass/Vol]33.0 g/dL32.0-35.0[facility] HospitalMCV Auto (RBC) [Entitic vol]Ordered By: Steve Coronel on 19-58-7834ESE (RBC) [Entitic vol]86.9 fL 80-100[facility] HospitalMonocyte distribution width [Entitic volume] in Blood by AutomatedOrdered By: Steve Coronel on 87-84-1125Mkzwjxhr distribution width Auto (Bld) [Entitic vol]18.39 %0.00-20.00[facility] HospitalMonocytes Auto (Bld) [#/Vol]Ordered By: Steve Coronel on 06-21-2022 Monocytes (Bld) [#/Vol]0.4 10*3/uL0.0-0.8[facility] Monocytes/100 WBC Auto (Bld)Ordered By: Steve Coronel on 32-10-4119Ugxxadfte/100 WBC (Bld)3.8 %.[facility]itan HospitalNeutrophils Auto (Bld) [#/Vol] Ordered By: Steve Coronel on 15-81-5676Ksazjcaeozg (Bld) [#/Vol]6.2 10*3/uL1.8-7.7 [facility] HospitalNeutrophils/100 WBC Auto (Bld)Ordered By: Steve Coronel on 10-58-2338Rkiqmrtawge/100 WBC (Bld)64.9 %.[facility] HospitalNitrite Test strip Ql (U)Ordered By: Steve Coronel on 60-36-9579Kpjnyzq Ql (U)NegativeNegativeGood Samaritan HospitalNo Panel InformationOrdered By: Steve Coronel on 95-99-1768L-Dimer Quantitative (PE/DVT)< 200 ng/mL0-243 [facility] HospitalComment on above:The reference range for D- dimer is <243 ng/mL D-dimer units.D-dimer results must be used in conjunction with a clinicalpretest probability (PTP) assessment model for deep veinthrombosis (DVT) and pulmonary embolism (PE). Results <230ng/mL d-dimer units can be used as a negative predictor inpatients with low or moderate probability for DVT/PE.Results above the exclusion threshold of 230 ng/ml D- dimerunits for DVT/PE may indicate the need for furtherdiagnostic testing.D- Dimer can be increased in hospitalized patients due toco-morbid conditions. Estimated GFR ()> 60 mL/MinGood Samaritan Hospital Comment on above:GFR estimated reference range: According to KDOQI guidelines, <60 ml/min/1.73m2 is sufficient todiagnose a patient with chronic kidney disease.Pharmacy Creatinine Clearance (ChemN/[facility] Nucleated erythrocytes [Presence] in Blood by Automated countOrdered By: Steve Coronel on 33-42-9243Tnfjzimtj RBC Auto Ql (Bld)0.1 /100{WBC}0-0.5FMercy Health Allen HospitalPlatelet mean volume Auto (Bld) [Entitic vol]Ordered By: Steve Coronel on 90-17-6263Oijxqtzq mean volume (Bld) [Entitic vol]8.0 fL6.3-10.7 [facility] HospitalPlatelets Auto (Bld) [#/Vol]Ordered By: Steve Coronel on 89-34-4274Vyqnbueun (Bld) [#/Vol]356 10*3/gH599-135VsczyuoecGood Samaritan HospitalProtein Auto test strip (U) [Mass/Vol]Ordered By: Steve Coronel on 15-33-9936Cfawspp (U) [Mass/Vol]NegativeNegativeGood Samaritan HospitalProtein [Mass/volume] in Serum or PlasmaOrdered By: Steve Coronel on 81-11-1149Ssercvi [Mass/Vol]6.8 g/dL6.1-7.9[facility] HospitalRBC Auto (Bld) [#/Vol]Ordered By: Steve Coronel on 76-69-6664HWE (Bld) [#/Vol]4.61 10*6/uL3.60-5.00[facility]innatierum or plasma alanine aminotransferase measurement without P-5'-P (enzymatic activiOrdered By: Steve Coronel on 01-43-8311ANP No additional P-5'-P [Catalytic activity/Vol]17 U/L10-60 [facility] Cincinnatierum or plasma albumin/globulin mass ratio Ordered By: Steve Coronel on 95-93-3491Gymmoma/Globulin [Mass ratio]1.2 {ratio} [facility]atierum or plasma alkaline phosphatase measurement (enzymatic activity/volume)Ordered By: Steve Coronel on 79-98-6484FQJ [Catalytic activity/Vol]52 U/K54-33RdzglajwpSelect Medical Specialty Hospital - Cincinnatierum or plasma anion gap determinationOrdered By: Steve Coronel on 93-63-8366Jzolv gap [Moles/Vol]12.7 mmol/L6.0-15.0[facility]innatierum or plasma aspartate aminotransferase measurement (enzymatic activity/volume)Ordered By: Steve Coronel on 17-89-5291DEE [Catalytic activity/Vol]19 U/L35-15RvcpprvhtSelect Medical Specialty Hospital - Cincinnatierum or plasma calcium measurement (mass/volume)Ordered By: Steve Coronel on 81-32-0434Penklkg [Mass/Vol]9.1 mg/dL8.2-10.2FProMedica Flower Hospitalerum or plasma chloride measurement (moles/volume) Ordered By: Steve Coronel on 12-74-3222Xajndzlu [Moles/Vol]100 mmol/L95-114 [facility]atierum or plasma glucose measurement (mass/volume)Ordered By: Steve Coronel on 08-77-1654Wazwnxt [Mass/Vol]97 mg/dL 70-100[facility] HospitalComment on above:ADA recommended reference rangeRandom Glucose Reference Range is dependent on time and content of last meal. Glucose of more than 200 mg/dL in a nonstressed, ambulatory subject supports the diagnosisof Diabetes Mellitus.Serum or plasma potassium measurement (moles/volume)Ordered By: Steve Coronel on 88-46-0157Qihpegeto [Moles/Vol]3.9 mmol/L3.5-5.1FProMedica Flower Hospitalerum or plasma sodium measurement (moles/volume)Ordered By: Steve Coronel on 59-97-7832Wlceom [Moles/Vol]135 mmol/C330-070XwlikmqoySelect Medical Specialty Hospital - Cincinnatierum or plasma total bilirubin measurement (mass/volume)Ordered By: Steve Coronel on 06-21-2022 Bilirubin [Mass/Vol]0.6 mg/dL0.3-1.2FProMedica Flower Hospitalerum or plasma total carbon dioxide measurement (moles/volume)Ordered By: Steve Coronel on 27-99-2832DR2 [Moles/Vol]26.2 mmol/L22.0-30.0[facility] Serum or plasma urea nitrogen measurement (mass/volume)Ordered By: Steve Coronel on 80-47-8261Bdzd nitrogen [Mass/Vol]8 mg/dL9-[facility] - Cincinnatipecific gravity Auto test strip (U) [Rel density]Ordered By: Steve Coronel on 43-24-3173Khvbpryq gravity (U) [Rel density]1.0051.001-1.030[facility] HospitalTroponin I.cardiac [Mass/volume] in Serum or Plasma by High sensitivity methodOrdered By: Steve Coronel on 54-59-4910Ssivahyl I.cardiac High sensitivity method [Mass/Vol]< 3 pg/mL0-15[facility] Urine clarity by refractometry automatedOrdered By: Steve Coronel on 06-21-2022 Clarity Refractometry automated (U)ClearCleGood Samaritan Hospital Urine glucose measurement by automated test strip (mass/volume)Ordered By: Steve Coronel on 49-77-1848Xvwpnmy Auto test strip (U) [Mass/Vol]Normal mg/dLNormal [facility] HospitalUrine hemoglobin detection by automated test stripOrdered By: Steve Coronel on 31-69-5415Nqoksomjvv Auto test strip Ql (U) NegativeNegSouthview Medical CenterUrine leukocyte esterase detection by automated test stripOrdered By: Steve Coronel on 60-57-3509Dlvdfjswy esterase Auto test strip Ql (U)NegativeNegSouthview Medical Center Urobilinogen Auto test strip (U) [Mass/Vol]Ordered By: Steve Coronel on 06-21-2022 Urobilinogen (U) [Mass/Vol]Normal mg/dLNoMiddletown Hospital WBC Auto (Bld) [#/Vol]Ordered By: Steve Coronel on 73-30-0073VDV (Bld) [#/Vol]9.5 10*3/uL3.8-11.6FMercy Health Allen HospitalpH Auto test strip (U)Ordered By: Steve Coronel on 50-81-0158dD (U)7.5 [pH]5.0-9.0[facility] HospitalOffice Visit (Cardiology)on 82-99-4215Detwji-up visitDiagnoses/Problems Assessed Palpitations (785.1) (R00.2) PVC (premature ventricular [...] intermittent palpitation in the past with previous Holtermonitor showing few PVCs and PACs but no significant tacky or bradycardia arrhythmia. Patient report recently she had increased frequency of palpitation with intermittent episodes of pauses. She feltlightheadedness and dizziness on couple of occasion. She had mid to high level of anxiety and anxiety disorder. The patient denies chest pain, shortness of breath. She reports remote syncopal episode2 years ago. She described functional class I. [...] no seizures and no (more content not included)...NormalUH TouchworksCOVID + FLU Quick Testingon 34-25-6304WHKJ-CoV-2 (COVID-19) RNA CESAR+probe Ql (Unsp spec)PositiveNosaint louis university hospital Reveal Data Other COVID + FLU Quick TestingNegativeNort Reveal Data Other Quick Strepon 04-28-2022. pyogenes Org specific cx Ql (Throat)NegativeNort Reveal Data Other Quick StrepNoCompete Other Otheron 81-21-7889URKORGCLK ELECTRONIC SIGNATURETUAN NUNES COLLECTION OFFICER (Electronic signature on file) Final Signed Out: 04/18/1998 09:51 [facility]CONVERTED FINAL DIAGNOSISSPECIMEN ADEQUACY SATISFACTORY FOR EVALUATION GENERAL CATEGORIZATION WITHIN NORMAL LIMITS HORMONAL EVALUATION HORMONAL PATTERN COMPATIBLE WITH AGE AND HISTORY [facility], IncVERTED ORDERING PROVIDEROrdering Provider: PETER LOBO [facility] HospitalCONVERTED PAP DISCLAIMERThe Pap test serves as a screening tool for early detection of cervical cancer. The Pap test does not represent a final diagnostic test for cervical cancer. Furthermore, the Pap test was not designed to screen for other malignancies (endometrial, ovarian cancer, etc....). False negatives and false positives have occurred. If clinically indicated, further patient evaluation is recommended. [facility] Vital Signs Date TimeVital SignValuePerforming PyzuoqbrsYgiekufa73-87-5478 11:03-0400Body qzcaqq135.18 Bella Coon MD Work Phone: [facility]09-25-2025 11:03-0400 Body mass index (BMI) [Ratio]46.9 kg/n9AjpvruMelissa Coon MD Work Phone: [facility]09-25-2025 11:03-0400 Body kgMelissa Coon MD Work Phone: [facility]09-16-2025 14:52-0400 Body mass index (BMI) [Ratio]51.06 kg/i9NovohrAmanda Valerio MD Work Phone: noScotland [facility] HospitalTugomnxnsc47-55-8220 14:52-0400Body mfdhgo427.87 kgAmanda Valerio MD Work Phone: noScotland [facility] HospitalTodswcckxy00-44-6954 14:52-0400Diastolic blood lbuzwjpm32 mm[Hg]Amanda Valerio MD Work Phone: noScotland County [facility] HospitalWjbljdvnua71-76-1906 14:52-0400Systolic blood uicvwrmg100 mm[Hg]Amanda Valerio MD Work Phone: noScotland County Memorial HospitalYbejyfzvhl60-56-4932 11:06-0400Body qteglh743.2 Mark Dove MD Work Phone: [facility] HospitalSbnrphuwvw82-11-3612 11:06-0400Body mass index (BMI) [Ratio]51.22 kg/a5GqvpuKenyetta Dove MD Work Phone: [facility] HospitalTxzomymels54-76-2256 11:06-0400Body omihrb337.33 kgKenyetta Dove MD Work Phone: [place] [address]Qkdpvxtrzy06-06-1471 11:06-0400Diastolic blood wtdkjdha12 mm[Hg]Kenyetta Dove MD Work Phone: [facility] HospitalHbbqopabze11-55-6399 11:06-0400Heart rate85 /min Kenyetta Dove MD Work Phone: [facility] HospitalViyfwpvpmi62-76-5362 11:06-0400Respiratory rate18 /minKenyetta Dove MD Work Phone: [place] [address]Uccnfqcqzr56-46-7929 11:06-0414CgF8% (BldA) [Mass fraction]95 %Kenyetta Dove MD Work Phone: [facility] HospitalNapwjqqitz37-15-0262 11:06-0400Systolic blood lzpakasn640 mm[Hg]Kenyetta Dove MD Work Phone: [facility] HospitalNqexqgfmfr49-11-5931 14:08-0400Diastolic blood yxnipbxr52 mm[Hg]Melissa Coon MD Work Phone: [facility]09-04-2025 14:08-0400 Systolic blood mm[Hg]Melissa Coon MD Work Phone: [facility]09-02-2025 15:19-0400 Body eqmkoc250.2 Sung Valerio MD Work Phone: noSc[facility] HospitalEfqsxbwcnd80-57-7401 15:19-0400Body mass index (BMI) [Ratio]51.37 kg/h6Odqmqg Valerio MD Work Phone: [facility] HospitalLengkzalie65-02-3739 15:19-0400Body .78 kgAmanda Valerio MD Work Phone: [facility] HospitalIginghwcsz19-07-5522 15:19-0400Diastolic blood opdrmyjx41 mm[Hg]Amanda Valerio MD Work Phone: [facility] HospitalUioszapyzl17-64-9010 15:19-0400Systolic blood mm[Hg]Amanda Valerio MD Work Phone: [facility] HospitalZufibjrzay43-11-4827 13:43-0400Body mass index (BMI) [Ratio]50.59 kg/m2Gina Rismarisolti IT HELP DESK MANAGER Work Phone: [facility] HospitalFkfinnahzl15-73-5998 13:43-0400Body .51 kgGina Risaliti IT HELP DESK MANAGER Work Phone: [facility] [id number] 13:43-0400Diastolic blood weuweufl21 mm[Hg]Dalia Risaliti IT HELP DESK MANAGER Work Phone: [facility] [id number] 13:43-0400Heart rate65 /min Dalia Risaliti IT HEL[employer] DESK MANAGER Work Phone: [phone] [place] [address]-15-2025 13:43-1582PgI7% (BldA) [Mass fraction]99 %Dalia Risaliti IT HELP DESK MANAGER Work Phone: [facility] [id number] 13:43-0400Systolic blood [id number] mm[Hg]Dalia Maoaliti IT HELP DESK MANAGER Work Phone: 1(817)761-[address] [place], [place] [address]Yxizmhbhdr03-57-9593 11:41-0400Diastolic blood tlwrllov38 mm[Hg]Melissa Coon MD Work Phone: [facility]08-12-2025 11:41-0400 Systolic blood mm[Hg]Melissa Coon MD Work Phone: [facility]08-12-2025 11:40-0400 Body xgwqme966.18 Bella Coon MD Work Phone: 1(419)[address]08-12-2025 11:40-0400 Body mass index (BMI) [Ratio]47 kg/q3PlpcbdMelissa Coon MD Work Phone: 8(607)7-[address] [place], [place] 4014208-12-2025 11:40-0400 Body tmzkaq502.07 kgMelissa Coon MD Work Phone: 4(826)[address]08-06-2025 11:29-0400 Body .18 Bella Coon MD Work Phone: 1(044)[address]08-06-2025 11:29-0400 Body oonlshadodg26 [degF]Melissa Coon MD Work Phone: 0(573)[address]08-06-2025 11:29-0400 Body xglisi010.07 kgMelissa Coon MD Work Phone: 2(329)[address]08-06-2025 11:29-0400 Diastolic blood gcmauirf36 mm[Hg]Melissa Coon MD Work Phone: 1(776)[address]08-06-2025 11:29-0400 Heart rate89 /minMelissa Coon MD Work Phone: 2(241)626-[address] [place], [place] 4014208-06-2025 11:29-0400 Respiratory rate18 /minMelissa Coon MD Work Phone: 3(421)763-[address] [place], [place] 4014208-06-2025 11:29-0400 SaO2% (BldA) [Mass fraction]100 %Melissa Coon MD Work Phone: 8(719)664-[address] [place], [place] 4014208-06-2025 11:29-0400 Systolic blood afudsgjb872 mm[Hg]Melissa Coon MD Work Phone: 7(488)471-[address] [place], [place] 4014207-30-2025 09:16-0400 Body .18 Bella Coon MD Work Phone: 3(460)397-[address] [place], [place] 4014207-30-2025 09:16-0400 Body mass index (BMI) [Ratio]49.4 kg/s1NzmfhvMelissa Coon MD Work Phone: [facility]07-30-2025 09:16-0400 Body ulhecjnrltx58.8 [degF]Melissa Coon MD Work Phone: [address] [place], [place] 8061107-30-2025 09:16-0400 Body mymiii501.33 kgMelissa Coon MD Work Phone: [address] [place], [place] 8061107-30-2025 09:16-0400 Diastolic blood bsojhkcm11 mm[Hg]Melissa Coon MD Work Phone: [address] [place], [place] 8061107-30-2025 09:16-0400 Heart rate86 /minMelissa Coon MD Work Phone: [address] [place], [place] 8061107-30-2025 09:16-0400 Respiratory rate16 /minMelissa Coon MD Work Phone: [address] [place], [place] 8061107-30-2025 09:16-0400 SaO2% (BldA) [Mass fraction]96 %Melissa Coon MD Work Phone: [address] [place], [place] 8061107-30-2025 09:16-0400 Systolic blood mm[Hg]Melissa Coon MD Work Phone: [facility]07-24-2025 15:10-0400 Body [facility]ptwoy144.2 [facility] Work Phone: [facility] HospitalHgdcvlybyv30-51-3001 15:10-0400Body mass index (BMI) [Ratio]50.68 kg/g5Rdkoej Workman PA Work Phone: [facility] HospitalZarzmielcg12-85-7003 15:10-0400Body wfhaum930.78 kgSummer Workman PA Work Phone: [facility] HospitalAhqqmwxzqq77-32-5006 15:10-0400Diastolic blood cnpxekem16 mm[Hg]Summer Workman PA Work Phone: [facility] HospitalKsfxhrryqj30-11-7950 15:10-0400Heart rate79 /min Summer Workman PA Work Phone: [facility] HospitalWrxhwrtrtz11-36-6321 15:10-6620HnS3% (BldA) [Mass fraction]97 %Summer Workman PA Work Phone: [facility] HospitalPmjjzyjqro26-43-2980 15:10-0400Systolic blood ucrsunvk025 mm[Hg]Summer Workman PA Work Phone: no[facility] HospitalItmzgrryyc60-05-7123 10:42-0400Body .2 cmRsamir Coon MD Work Phone: no[facility] HospitalEjmbjmtwye88-89-7037 10:42-0400Body mass index (BMI) [Ratio]50.12 kg/y1WgmywuMelissa Coon MD Work Phone: no[facility] HospitalHoekuwxdvq65-81-0297 10:42-0400Body aycgmq602.15 kgMelissa Coon MD Work Phone: no[facility] HospitalJrmhkgbwak81-01-3752 10:42-0400Diastolic blood mm[Hg]Melissa Coon MD Work Phone: no[facility] HospitalHanjvdrkjj24-77-1208 10:42-0400Heart rate79 /min Melissa Coon MD Work Phone: no[facility] HospitalQzbzeabibk98-78-5045 10:42-8812FiC3% (BldA) [Mass fraction]97 %Melissa Coon MD Work Phone: no[facility] HospitalQwdedvqxue42-17-2167 10:42-0400Systolic blood pqxyojnr688 mm[Hg]Melissa Coon MD Work Phone: no[facility] HospitalGvnlmvhcmk03-45-4284 15:46-0400Body mbofdl088.2 cmMickillian Quan IT HELP DESK MANAGER Work Phone: noSc[facility] HospitalPfcrzgobaf17-40-9142 15:46-0400Body mass index (BMI) [Ratio]50.12 kg/k8TiahsnhOmid Quan IT HELP DESK MANAGER Work Phone: noSc[facility] HospitalMjryjytomk90-95-8534 15:46-0400Body rldpuw387.15 kgOmid Quan IT HELP DESK MANAGER Work Phone: noms Jhqizhfijg20-30-0671 15:46-0400Diastolic blood yyxdaigv91 mm[Hg]Omid Quan IT HELP DESK MANAGER Work Phone: noSc[facility] HospitalVggpehzeeq48-00-5435 15:46-0400Heart rate90 /min Omid Quan IT HELP DESK MANAGER Work Phone: noSc[facility] HospitalHrwtmlyebw50-01-7835 15:46-7059BlN3% (BldA) [Mass fraction]97 %Omid Quan IT HELP DESK MANAGER Work Phone: noSc[facility] HospitalDmmivfhpje16-50-5289 15:46-0400Systolic blood mm[Hg]Omid Quan IT HELP DESK MANAGER Work Phone: noSc[facility] HospitalKinmvkgwoi00-28-9822 11:15-0400Body wtwdac483.18 Bella Coon MD Work Phone: [phone]07-03-2025 11:15-0400 Body mass index (BMI) [Ratio]49.4 kg/c7EtkzrzMelissa Coon MD Work Phone: [facility]07-03-2025 11:15-0400 Body rqyemh903.33 kgMelissa Coon MD Work Phone: [address] [place], [place] 8061107-03-2025 09:53-0400 Body gkciiu476.18 Bella Coon MD Work Phone: [facility]07-03-2025 09:53-0400 Body mass index (BMI) [Ratio]109 kg/e1GcrskaMelissa Coon MD Work Phone: [facility]07-03-2025 09:53-0400 Body oyemke462 kgMelissa Coon MD Work Phone: [facility]07-03-2025 09:53-0400 Diastolic blood mm[Hg]Melissa Coon MD Work Phone: [facility]07-03-2025 09:53-0400 Heart rate79 /minMelissa Coon MD Work Phone: [facility]07-03-2025 09:53-0400 SaO2% (BldA) [Mass fraction]97 %Melissa Coon MD Work Phone: [facility]07-03-2025 09:53-0400 Systolic blood gdnmytwb565 mm[Hg]Melissa Coon MD Work Phone: [facility]06-25-2025 10:37-0400 Body mass index (BMI) [Ratio]48.4 kg/m2Gina Risaliti IT HELP DESK MANAGER Work Phone: noSc[facility] HospitalXezwvkbytl38-45-1581 10:37-0400Body ltiqai466.16 kgGina Risaliti IT HELP DESK MANAGER Work Phone: noSc[facility] HospitalClevmnksjx30-12-9010 10:37-0400Diastolic blood lnerkwrj50 mm[Hg]Dalia Risaliti IT HELP DESK MANAGER Work Phone: noSc[facility] HospitalDeldphrrye29-19-0367 10:37-0400Heart rate75 /min Dalia Risaliti IT HELP DESK MANAGER Work Phone: noSc[facility] HospitalItlpqndltb28-68-7481 10:37-9268SgH2% (BldA) [Mass fraction]97 %Dalia Risaliti IT HELP DESK MANAGER Work Phone: noSc[facility] HospitalFydbllavfw51-97-5781 10:37-0400Systolic blood rkwkodae494 mm[Hg]Dalia Risaliti IT HELP DESK MANAGER Work Phone: noSc[facility] HospitalAxnajcymzv36-62-0598 08:07-0400Diastolic blood hqkambvd06 mm[Hg]Melissa Coon MD Work Phone: [facility]05-29-2025 08:07-0400 Heart rate76 /minMelissa Coon MD Work Phone: [facility]05-29-2025 08:07-0400 Systolic blood aplxvslm979 mm[Hg]Melissa Coon MD Work Phone: [facility]05-13-2025 10:17-0400 Body wdpkro981.2 cmSummer Workman PA Work Phone: [facility] HospitalTpngfopdzg65-76-3593 10:17-0400Body mass index (BMI) [Ratio]48.87 kg/f1Ziodnz Workman PA Work Phone: [facility] HospitalUgduqsanii42-50-0086 10:17040Body .52 kgSummer Workman PA Work Phone: [facility] HospitalWhyhackrak85-35-7869 10:17Diastolic blood nziycija69 mm[Hg]Summer Workman PA Work Phone: [facility] HospitalGofthyunsh79-63-2578 10:Heart rate82 /min [facility] Workman PA Work Phone: [facility] HospitalWaywatxlcd83-86-6646 10:174580GxB8% (BldA) [Mass fraction]97 %Summer Workman PA Work Phone: [facility] HospitalFhqfsgkfok61-48-0405 10:17Systolic blood upbowftt167 mm[Hg][facility] Workman PA Work Phone: [facility] HospitalUlmjqsjyen42-09-6972 14:13-0500Body vialpg441.18 Bella Coon MD Work Phone: 1(945)535-[address] [place], [place] 4014212-16-2024 14:13-0500 Body mass index (BMI) [Ratio]42.3 kg/e4JalzeoMelissa Coon MD Work Phone: 4(271)0-[address] [place], [place] 4014212-16-2024 14:13-0500 Body vdskowwszuu17.2 [degF]Melissa Coon MD Work Phone: 1(448)221-[address] [place], [place] 4014212-16-2024 14:13-0500 Body rpknic904.46 kgMelissa Coon MD Work Phone: 3(946)258-[address] [place], [place] 4014212-16-2024 14:13-0500 Diastolic blood ssdyqckp22 mm[Hg]Melissa Coon MD Work Phone: [facility]12-16-2024 14:13-0500 Heart rate74 /minMelissa Coon MD Work Phone: [facility]12-16-2024 14:13-0500 Respiratory rate18 /minMelissa Coon MD Work Phone: [address] [place], [place] 8061112-16-2024 14:13-0500 SaO2% (BldA) [Mass fraction]97 %Melissa Coon MD Work Phone: [facility]12-16-2024 14:13-0500 Systolic blood zewhtnnv346 mm[Hg]Melissa Coon MD Work Phone: [facility]10-09-2024 11:08-0400 Body mass index (BMI) [Ratio]41.97 kg/m2No[facility] CenterTkumfnzgsn75-45-4599 11:08-0400Body awhkmf342.56 kgNoM[facility]10-09-2024 11:08-0400 Diastolic blood cbsnrjyt54 mm[Hg][facility]10-09-2024 11:08-0400 Heart rate91 /minNoM[facility]10-09-2024 11:08-9922KcC9% (BldA) [Mass fraction]98 %[facility]10-09-2024 11:08-0400Systolic blood vuulfsnt882 mm[Hg][facility]10-01-2024 09:45-0400Body .2 Mark Dove MD Work Phone: 1(198)499-[address] [place], [place] [address]Pcfcosxdcs51-29-0983 09:45-0400Body mass index (BMI) [Ratio]41.97 kg/o5WudxpKenyetta Dove MD Work Phone: [phone] HospitalDfbqlapmfa67-77-5825 09:45-0400Body orcyvi367.56 kgKenyetta Dove MD Work Phone: 1(502)[address] [place], [place] [address]Gslwwdowmq56-37-5824 09:45-0400Diastolic blood pjatpvrc73 mm[Hg]Kenyetta Dove MD Work Phone: 1(447)[address] [place], [place] [address]Srjvyxebmr42-25-2233 09:45-0400Heart rate78 /min Kenyetta Dove MD Work Phone: [facility] HospitalTafwuovfqe93-54-3328 09:45-0400Respiratory rate18 /minKenyetta Dove MD Work Phone: 1(908)355-[address] [place], [place] [address]Igplfcawua76-88-7671 09:45-0400Systolic blood ufjxrdyk998 mm[Hg]Kenyetta Dove MD Work Phone: [facility] HospitalXnzyuhwokw68-93-1695 15:28-0400Body qqclxy946.2 Bella Coon MD Work Phone: [facility] HospitalZxljqpfcqr15-55-1547 15:28-0400Body mass index (BMI) [Ratio]43.54 kg/u0PvkfelMelissa Coon MD Work Phone: [facility] HospitalPuzdhanciy79-57-0906 15:28-0400Body .1 kgMelissa Coon MD Work Phone: [facility] HospitalTfrakfjbnt94-33-3937 15:28-0400Diastolic blood uwebbfif17 mm[Hg]Melissa Coon MD Work Phone: [facility] HospitalRmqfxszega61-37-8608 15:28-0400Heart rate64 /min Melissa Coon MD Work Phone: [facility] HospitalDubsllrkdo92-34-1148 15:28-6168SqP2% (BldA) [Mass fraction]95 %Melissa Coon MD Work Phone: [facility] HospitalGwdftiqvzw53-14-0629 15:28-0400Systolic blood ohljhjbh879 mm[Hg]Melissa Coon MD Work Phone: [facility] HospitalRqflavdxid52-23-7863 11:42-0400Body evkksv369.18 cmDO Melissa Singh II Work Phone: [facility]07-08-2024 11:42-0400 Body mass index (BMI) [Ratio]40.7 kg/m2DO Melissa Singh II Work Phone: [facility]07-08-2024 11:42-0400 Body slmrtwidyev56.2 [degF]DO Melissa Singh II Work Phone: [facility]07-08-2024 11:42-0400 Body xfwaqb666.93 kgDO Melissa Singh II Work Phone: 1(419)[address]07-08-2024 11:42-0400 Diastolic blood lzeyifpe05 mm[Hg]DO Melissa Cromley II Work Phone: 1(324)[address] [place], [place] 6543607-08-2024 11:42-0400 Heart rate78 /minDO Melissa Cromley II Work Phone: 1(155)[address] [place], [place] 6543607-08-2024 11:42-0400 SaO2% (BldA) [Mass fraction]94 %DO Melissa Cromley II Work Phone: 1(842)[address] [place], [place] 6543607-08-2024 11:42-0400 Systolic blood bnzyqdbe786 mm[Hg]DO Melissa Cromley II Work Phone: 1(955)[address] [place], [place] 6543605-06-2024 11:47-0400 Body ulpdlg775.18 cmDO Melissa Cromley II Work Phone: 1(237)[address] [place], [place] 6543605-06-2024 11:47-0400 Body mass index (BMI) [Ratio]45.2 kg/m2DO Melissa Cromley II Work Phone: 1(849)[address] [place], [place] 6543605-06-2024 11:47-0400 Body khehbb221 kgDO Melissa Cromley II Work Phone: 1(098)[address] [place], [place] 6543604-23-2024 11:34-0400 Body .18 cmDO Melissa Cromley II Work Phone: 1(738)[address] [place], [place] 6543604-23-2024 11:34-0400 Body .1 [degF]DO Melissa Cromley II Work Phone: 1(159)[address] [place], [place] 6543604-23-2024 11:34-0400 Body .9 kgDO Melissa Cromley II Work Phone: 1(087)[address] [place], [place] 6543604-23-2024 11:34-0400 Diastolic blood mm[Hg]DO Melissa Cromley II Work Phone: 1(513)[address] [place], [place] 6543604-23-2024 11:34-0400 Heart rate86 /minDO Melissa Cromley II Work Phone: 1(787)[address]04-23-2024 11:34-0400 Respiratory rate19 /minDO Melissa Cromley II Work Phone: 1(138)[address] [place], [place] 6543604-23-2024 11:34-0400 SaO2% (BldA) [Mass fraction]97 %DO Melissa Cromley II Work Phone: 1(252)[address] [place], [place] 6543604-23-2024 11:34-0400 Systolic blood pgpllorw675 mm[Hg]DO Melissa Cromley II Work Phone: 1(484)[address] [place], [place] 6543602-23-2024 10:32-0500 Body xbbvpiyrajf33.2 [degF]DO Melissa Cromley II Work Phone: 1(079)[address] [place], [place] 6543602-23-2024 10:32-0500 Diastolic blood tpvwjkak91 mm[Hg]DO Melissa Cromley II Work Phone: 1(454)[address] [place], [place] 6543602-23-2024 10:32-0500 Heart rate79 /minDO Melissa Cromley II Work Phone: 1(478)[address] [place], [place] 6543602-23-2024 10:32-0500 Respiratory rate16 /minDO Melissa Cromley II Work Phone: 1(600)[address]02-23-2024 10:32-0500 SaO2% (BldA) [Mass fraction]96 %DO Melissa Cromley II Work Phone: 1(672)[address]02-23-2024 10:32-0500 Systolic blood giwuveto819 mm[Hg]DO Melissa Cromley II Work Phone: 1(716)3-[address] [place], [place] 9916402-23-2024 08:20-0500 Body ehadvx524.18 cmDO Melissa Cromley II Work Phone: 1(984)3-[address] [place], [place] 9916402-23-2024 08:20-0500 Body tuuaog320.2 kgDO Melissa Cromley II Work Phone: [facility]02-09-2024 14:25-0500 Body kikohg462.18 cmAmanda James Other [employer] Other 02-09-2024 14:25-0500Body mass index (BMI) [Ratio] 42.28 kg/o5Ktavaa James Other [employer] Other 02-09-2024 14:25-0500Body trsaesskejz49.6 [degF]Roula James Other [employer] Other 02-09-2024 14:25-0500Body .47 kgAmanda James Other [employer] Other 02-09-2024 14:25-0500Diastolic blood lzcdneet07 mm[Hg] Roula James Other [employer] Other 02-09-2024 14:25-1436GmP2% (BldA) [Mass fraction]96 % Roula James Other [employer] Other 02-09-2024 14:25-0500Systolic blood bfqghvum865 mm[Hg] Roula James Other [employer] Other 10-31-2023 10:13-0400Diastolic blood obiaukqj56 mm[Hg] PHYSICIAN NO [facility]10-31-2023 10:13-0400Heart rate70 /minPHYSICIAN [facility]10-31-2023 10:13-0400Respiratory rate20 /minPHYSICIAN [facility]10-31-2023 10:13-3893XwD4% (BldA) [Mass fraction]98 %PHYSICIAN NO [facility]10-31-2023 10:13-0400Systolic blood pygghzuo759 mm[Hg]PHYSICIAN NO [facility]10-31-2023 08:29-0400 Body .18 cmPHYSICIAN NO [facility] 03-29-2023 08:29-0400Body qfannn531.2 kgPHYSICIAN NO [facility]10-29-2023 13:45-0400Body aiwaeh199.18 cmCblessing Reed Other [employer] Other 10-29-2023 13:45-0400Body mass index (BMI) [Ratio] 42.03 kg/a8IgfhwlOscar Reed Other [employer] Other 10-29-2023 13:45-0400Body .1 [degF]Oscar Reed Other [employer] Other 10-29-2023 13:45-0400Body zfrdik796.75 kgOscar Reed Other [employer] Other 10-29-2023 13:45-0400Diastolic blood ktgbecac47 mm[Hg] Oscar Reed Other [employer] Other 10-29-2023 13:45-0400Respiratory rate18 /minOscar Reed Other [employer] Other 10-29-2023 13:45-8691AxQ7% (BldA) [Mass fraction]97 % Oscar Reed Other [employer] Other 10-29-2023 13:45-0400Systolic blood kauculxs880 mm[Hg] Oscar Reed Other [employer] Other 09-21-2023 13:15-0400Body yxhmzw513.18 [facility] [employer] Other 09-21-2023 13:15-0400Body mass index (BMI) [Ratio] 42.03 kg/l6Sgwesmvs [facility]ato Other [facility] [employer] Other 09-21-2023 13:15-0400Body hquyil068.75 kgLawrcirilo Hoskins Other [facility] [employer] Other 09-21-2023 13:15-0400Diastolic blood uvgpvojc72 mm[Hg] Beny Gato Other [place] [employer] Other 09-21-2023 13:15-0400Systolic blood cotumefw314 mm[Hg] Beny Womackormack [facility] [employer] Other 08-28-2023 10:47-0400Diastolic blood mgkggxpy65 mm[Hg] DO Donya Billings Work Phone: [facility]08-28-2023 10:47-0400 Heart rate94 /Adwoa Billings Work Phone: [facility]08-28-2023 10:47-0400 Respiratory rate20 /Adwoa Billings Work Phone: [facility]08-28-2023 10:47-0400 SaO2% (BldA) [Mass fraction]98 %DO Donya Billings Work Phone: [facility]08-28-2023 10:47-0400 Systolic blood zvojcdnz712 mm[Hg]DO Donya Billings Work Phone: [facility]08-28-2023 09:58-0400 Body qafgfb273.18 cmDO Donya Billings Work Phone: 1(051)741-[address] [place], [place] 8370508-28-2023 09:58-0400 Body khgzemxecjy79 [degF]DO Donya Billings Work Phone: 1(932)[address]08-28-2023 09:58-0400 Body xbagvg576.75 kgDO Donya Billings Work Phone: 1(565)[address]08 [address]08-03-2023 23:30-0400 Diastolic blood gcmftijj19 mm[Hg]DO Donya Billings Work Phone: 1(226)[address]08-03-2023 23:30-0400 Heart rate81 /Adwoa Billings Work Phone: 1(267)[address]08-03-2023 23:30-0400 Respiratory rate20 /Adwoa Billings Work Phone: 1(245)[address]08-03-2023 23:30-0400 SaO2% (BldA) [Mass fraction]98 %DO Donya Billings Work Phone: 1(990)[address]08-03-2023 23:30-0400 Systolic blood nqizrnrm986 mm[Hg]DO Donya Billings Work Phone: 1(925)[address]08-03-2023 17:21-0400 Body pxrlyr794.18 cmDO Donya Billings Work Phone: 1(572)[address]08-03-2023 17:21-0400 Body gbpmpqxidtl97.6 [degF]DO Donya Billings Work Phone: 1(935)[address]08-03-2023 17:21-0400 Body radmfu624.1 kgDO Donya Billings Work Phone: 1(358)[address]07-24-2023 16:32-0400 Diastolic blood atxmrvzv97 mm[Hg]DO Donya Billings Work Phone: 1(400)586-[facility]07-24-2023 16:32-0400 Heart rate80 /Adwoa Billings Work Phone: [facility]07-24-2023 16:32-0400 Respiratory rate18 /Adwoa Billings Work Phone: 1(178)843[facility]07-24-2023 16:32-0400 SaO2% (BldA) [Mass fraction]98 %DO Donya Billings Work Phone: 1(396)446-[address] [place], [place] 8370507-24-2023 16:32-0400 Systolic blood bptmxxya956 mm[Hg]DO Donya Billings Work Phone: 1(886)[address]07-24-2023 12:47-0400 Body qxwpvi834.18 cmDO Donya Billings Work Phone: 1(161)23[address]07-24-2023 12:47-0400 Body ffkwmwdizdm44.7 [degF]DO Donya Billings Work Phone: 1(451)[address]07-24-2023 12:47-0400 Body eazyem467.5 kgDO Donya Billings Work Phone: 1(229)[address]08 [address]07-12-2023 08:50-0400 Body cxqyxw942.18 cmDonya Billings Work Phone: [phone]-Npcvs [facility] 250 DO Work Phone: 1(611) 958-910707-12-2023 08:50-0400Body mass index (BMI) [Ratio] 42.29 kg/w6UcqpsrgDonya Billings Work Phone: [phone]-Waixh [facility] [address] DO Work Phone: 1(695) 450-953707-12-2023 08:50-0400Body surface area Derived from formula2.3 u0Nbamauvalfred Billings Work Phone: [phone]-Jxqls [facility] 250 DO Work Phone: 1(718) 434-611307-12-2023 08:50-0400Body lhlqwu698.47 kgJanalfred Billings Work Phone: mp702-7956XQ-Wzxuv [facility] 250 DO Work Phone: 1(337) 997-947407-12-2023 08:50-0400Diastolic blood cxtxulci05 mm[Hg] Donya Billings Work Phone: mp456-8490QI-Efttk [facility] 250 DO Work Phone: 1(129) 911-790707-12-2023 08:50-0400Heart rate80 /minDonya Billings Work Phone: [phone])923-1227VJ-Qnzvn [facility] [address] DO Work Phone: 1(177) 600-880207-12-2023 08:50-0400Systolic blood mm[Hg] Donya Billings Work Phone: mp150-5330JK-Ztdfh [facility] [address] DO Work Phone: 1(418) 867-174106-10-2023 00:59-0400Diastolic blood nuebhhzg53 mm[Hg] DO Donya Billings Work Phone: 1(304)[address]06-10-2023 00:59-0400 Heart rate86 /Adwoa Billings Work Phone: 1(419)[address]06-10-2023 00:59-0400 Respiratory rate19 /Adwoa Billings Work Phone: 1(310)[address]06-10-2023 00:59-0400 SaO2% (BldA) [Mass fraction]99 %DO Donya Billings Work Phone: 1(419)[address]06-10-2023 00:59-0400 Systolic blood lesuxrvx407 mm[Hg]DO Donya Billings Work Phone: 1(419)[address]06-09-2023 20:12-0400 Body dflvbi229.18 cmDO Donya Billings Work Phone: 1(419)[address]08 [address]06-09-2023 20:12-0400 Body mckpbecuywh75.9 [degF]DO Donya Billings Work Phone: 1(419)21308 [address]06-09-2023 20:12-0400 Body nwpszy930.95 kgDO Donya Billings Work Phone: [phone])[address]05-17-2023 10:03-0400 Body vowhdr615.18 cmDonya Ashraf Awa Work Phone: mp335-2751DG-Ekpxm [facility] [address] [place] Work Phone: 1(393) 973-305205-17-2023 10:03-0400Body mass index (BMI) [Ratio] 41.98 kg/j1Mopddxa S Awa Work Phone: mp268-6373NZ-Bgvxo [facility] [address] [place] Work Phone: 1(524) 823-257705-17-2023 10:03-0400Body surface area Derived from formula2.29 p8Lcnuisv S Awa Work Phone: mp650-1971HD-Ksldu [facility] [address] [place] Work Phone: 1(679) 666-983605-17-2023 10:03-0400Body ggrxee282.56 kgDonya Ashraf Awa Work Phone: [id number]-Gkwvd [facility] [address] [place] Work Phone: 1(698) 750-697905-17-2023 10:03-0400Diastolic blood flzopaqm70 mm[Hg] Donya Billings Work Phone: mp271-1617VY-Ccrye [facility] [address] [place] Work Phone: 1(868) 797-807705-17-2023 10:03-0400Heart rate68 /minDonya Billings Work Phone: [id number]-Hmhmp [facility] [address] [place] Work Phone: 1(110) 650-597905-17-2023 10:03-0400Systolic blood obzqhwcj384 mm[Hg] Donya Ashraf Awa Work Phone: [id number]-Izmfs [facility] [address] [place] Work Phone: 1(542) 867-820004-05-2023 14:30-0400Body afmnwn019.18 cmCameron Fabiano Other [place] [employer] Other 04-05-2023 14:30-0400Body mass index (BMI) [Ratio] 41.97 kg/h2Afrdrro Fabiano [facility] [employer] Other 04-05-2023 14:30-0400Body rssvzo545.56 kgCamgiulia Mario Other [facility] [employer] Other 04-05-2023 14:30-0400Diastolic blood xxnqmdak40 mm[Hg] Oliver Mario Other [place] [employer] Other 04-05-2023 14:30-0400Systolic blood kogceyuz419 mm[Hg] Oliver Mario [facility] [employer] Other 03-01-2023 13:20-0500Body ifibuw677.18 cmJanalfred Ashraf Thuuz Work Phone: mp336-2076ME-Mhjgh [place] [facility] [address] [place] Work Phone: 1(724)[phone] 13:20-0500Body mass index (BMI) [Ratio] 42.13 kg/h9Zjdcpxq S Thuuz Work Phone: mp108-6504MG-Qjpfs [place] [facility] [address] [place] Work Phone: 1(157) 378-394903-01-2023 13:20-0500Body surface area Derived from formula2.29 m2Hplnofn S Thuuz Work Phone: mp456-3087ZX-Sgexo [facility] Work Phone: 1(421) 660-190103-01-2023 13:20-0500Body hanhoo989.02 kgDonya S Awa Work Phone: mp486-4665HT-Kttei [facility] Work Phone: 1(472) 534-612903-01-2023 13:20-0500Diastolic blood mm[Hg] Donya Andriy Awa Work Phone: mp154-6540PJ-Hihyq [facility] [address] [place] Work Phone: 1(918) 112-488803-01-2023 13:20-0500Heart rate78 /minDonya Andriy Billings Work Phone: mp908-1442OT-Awiwx [facility] [address] [facility] Work Phone: 1(360) 457-628303-01-2023 13:20-0500Systolic blood dotjdory921 mm[Hg] Donya Billings Work Phone: mp019-0320TU-Nemfy [facility] [address] [place] Work Phone: 1(997) 877-598201-23-2023 13:10-0500Diastolic blood rsrycgsp70 mm[Hg] DO Donya Billings Work Phone: [facility] [facility]01[facility]23 13:10-0500 Heart rate75 /Adwoa Billings Work Phone: [phone]-[facility]01-23-2023 13:10-0500 Respiratory rate18 /Adwoa Billings Work Phone: [phone]-[facility]01-23-2023 13:10-0500 SaO2% (BldA) [Mass fraction]98 %DO Donya Billings Work Phone: [facility]01-23-2023 13:10-0500 Systolic blood ezazexwg367 mm[Hg]DO Donya Billings Work Phone: [phone]-[facility]01-23-2023 10:26-0500 Body tccpqiqwegh45.7 [degF]DO Donya Billings Work Phone: [phone]-[facility]12-14-2022 16:00-0500 Body bilbet732.18 cmCamerarsenio Guillerminacelsa Other [employer] Other 12-14-2022 16:00-0500Body mass index (BMI) [Ratio] 41.81 kg/f0Jlzllca Rajcharlene Other [employer] Other 12-14-2022 16:00-0500Body kegfgs531.11 kgCamerosalvatore Fabiano Other [employer] Other 12-14-2022 16:00-0500Diastolic blood atweweyj48 mm[Hg] Oliver Mario Other [employer] Other 12-14-2022 16:00-0500Systolic blood gwuzzfzx828 mm[Hg] Oliver Mario Other [employer] Other 11-30-2022 16:00-0500Body gsjeuj818.18 cmCblessing Reed Other [employer] Other 11-30-2022 16:00-0500Body mass index (BMI) [Ratio] 39.93 kg/e4AscktcOscar Reed Other [employer] Other 11-30-2022 16:00-0500Body hwhxozgidqd19.9 [degF]Oscar Reed Other [employer] Other 11-30-2022 16:00-0500Body vyhhto802.67 kgOscar Reed Other [employer] Other 11-30-2022 16:00-0500Diastolic blood uhrpfwmx16 mm[Hg] Oscar Reed Other [employer] Other 11-30-2022 16:00-0500Respiratory rate18 /minOscar Reed Other [employer] Other 11-30-2022 16:00-3251XwI6% (BldA) [Mass fraction]97 % Oscar Reed Other [employer] Other 11-30-2022 16:00-0500Systolic blood uhpbjrqz690 mm[Hg] Oscar Reed Other [place] [employer] Other Encounters Encounter DateEncounter TypeCare ProviderFacilityStart: 03-11-2025 End: 87-82-5217uvetxcpjtgFzdaivvManuel Jensen MDFacility:[facility] [place] Start: 02-21-2025 End: 66-98-0321jlzyyvjmqaGtpwcp Hill MD Work Phone: [facility] Work Phone: Start: 02-21-2025 End: 00-49-2471Rjqzbvo encounter procedureChaz Carrillo DO-[facility] [place] Work Phone: Start: 02-19-2025 End: 32-01-8016Dhcyqlq encounter procedureChaz Carrillo DO-MRI [address] Closed Work Phone: Start: 02-19-2025 End: 53-27-6049ohnlornivqMxgkyb Hill MD Work Phone: [facility] Work Phone: Start: 02-12-2025 End: 81-88-1689Qnraio outpatient new 20 Isa Valerio MD Work Phone: [facility] [place] OBGYNComment on above:Hormone imbalance; Pelvic pain in femaleStart: 02-12-2025 End: 01-98-0377djrrdsbxnsSXVHRD P JONESNot AvailableStart: 02-12-2025 End: 24-27-0320Nqqtcf outpatient visit 25 minutesKenyetta Dove MD Work Phone: [facility] [place] EndocrinologyComment on above: Postoperative hypothyroidism (Primary Dx); Abnormal cortisol level; Encounter for dietary consultation; Vitamin D deficiency; Class 3 severe obesity due to excess calories without serious comorbidity with body mass index (BMI) of 50.0 to 59.9 in adult ([facility])Start: 02-12-2025 End: 26-84-0447luxxglmahzDLYWVLexii Simon AvailableStart: 02-11-2025 End: 96-81-1838Mmxrgdr encounter procedureREFERRAL [facility] Work Phone: Start: 02-11-2025 End: 80-80-8245mukctccqloIiitqa Hill MD Work Phone: [facility] Work Phone: Start: 02-08-2025 End: 80-08-8002sozyyrzwpgWnlpyo Hill MD Work Phone: [facility] Work Phone: Start: 02-08-2025 End: 67-49-4423Xjjytii encounter procedureChaz Carrillo DO-[facility] Work Phone: Start: 01-31-2025 End: 16-75-7546xtjrvapgcsHcfhvd Hill MD Work Phone: [facility] Work Phone: Start: 01-31-2025 End: 79-36-2723Ggzzeth encounter procedureMelissa Pimentel MD-[facility] Orthopedic Work Phone: Start: 01-29-2025 End: 34-43-1497Xuqxlag encounter statusAmanda Valerio MD Work Phone: [facility] Work Phone: start: 01-29-2025 End: 68-52-3498Eyathpma preventive med est patient 40-64yrsPenolbrent Valerio MD Work Phone: [facility] OBGYNComment on above:Encounter for gynecological examination without abnormal finding (Primary Dx); Vaginitis and vulvovaginitis; Cervicitis and endocervicitis; Acute vaginitis; Bacterial vaginitis; Vaginal odor; Vaginal discharge; Vaginal irritation; Encounter for screening for cervical cancer; Hormone imbalanceStart: 01-29-2025 End: 91-56-3257myovkpqxmhYIGUZM P JONESNot AvailableStart: 01-25-2025 End: 21-42-7658Yfyfeme encounter procedureMleissa Pimentel MD-MRI [address] Cl[address] Work Phone: Start: 01-25-2025 End: 73-99-1110dwdqrzhtwfIssmqy Hill MD Work Phone: [facility] Work Phone: Start: 01-22-2025 End: 06-06-8640Tqzuos OnlyMelissa Coon MD Work Phone: [facility] Internal MedicineComment on above:Acute pain of left kneeStart: 01-21-2025 End: 20-30-4654BcdzomPlow R Risaliti IT HELP DESK MANAGER Work Phone: [facility] [place] Internal MedicineComment on above:Acute pain of left kneeStart: 01-14-2025 End: 75-26-6572vpawkichlwAczzmyyDelmar Jensen MDFacility:[facility] [place] Start: 01-11-2025 End: 49-68-2057Dvjkgj outpatient visit 15 minutesGinbrent Mar IT HELP DESK MANAGER Work Phone: [facility] [place] Internal MedicineComment on above:Acute pain of left knee (Primary Dx)Start: 01-11-2025 End: 96-90-0764vcbbsidqjyBEDNLR L HILLNot AvailableStart: 01-08-2025 End: 11-34-1784tpslcxtytuPbqgdq Hill MD Work Phone: [facility] Work Phone: Start: 01-08-2025 End: 72-80-6692Xgcdila encounter procedureRobert Demar Pimentel MD-[facility] Work Phone: Start: 01-02-2025 End: 49-85-3316Qazrtyptg department patient visitMelissa Coon MD Work Phone: [phone]-Wvqowgmdb Room Work Phone: Start: 12-31-2024 End: 59-36-5898pnlfyzdvpdWaxkzrqManuel Jensen MDFacility:[facility] [place] Start: 12-26-2024 End: 36-20-4799hpsvfkdkrvStmtku Hill MD Work Phone: [facility] Work Phone: Start: 12-26-2024 End: 78-08-0947Jvonvvy encounter procedureMamarely Redding MD-[facility] Vascular Surg Work Phone: Start: 36-81-1435Ami-patient / Non-visitRobbie Dale MD-[facility] Work Phone: Start: 12-20-2024 End: 83-46-3210equgajqvwkIZZEDS L HILLNot AvailableStart: 12-20-2024 End: 87-41-0014Jijddb outpatient visit 25 minutesSutulio Menendez PA Work Phone: [facility] SWS IMComment on above:Bilateral lower extremity edema (Primary Dx); HepatomegalyStart: 12-19-2024 End: 80-26-7359fdeizikncjIUFTPM M WORKMANNot AvailableStart: 12-18-2024 End: 62-45-0173Algtzlu encounter procedureDajake Dale MD-Sleep Lab Work Phone: Start: 12-18-2024 End: 15-52-7112jbuqhskahnTvragi Hill MD Work Phone: [facility] Work Phone: Start: 12-17-2024 End: 23-41-4529eprkyzutowFqpwdom Vytautas Giedraitis MDFacility:[facility] [place] Start: 12-13-2024 End: 48-97-1302Yhbiiv outpatient visit 25 minutesMelissa Coon MD Work Phone: [facility] SWS IMComment on above:Bilateral lower extremity edema (Primary Dx); Pulmonary hypertension (HCC); Dyspnea, unspecified type; Essential hypertension ; Medicare annual wellness visit, subsequent; ACP (advance care planning); Obstructive sleep apnea syndrome; Pain of upper abdomenStart: 12-13-2024 End: 33-83-3812Jpmrwap encounter procedureMelissa Coon MD Work Phone: noms HealthcareStart: 12-13-2024 End: 79-38-8972yndotefxkxPEHIPH L HILLNot AvailableStart: 12-07-2024 End: 72-86-6499Gkhlpbux Result EncounterMiccarynmadalyn Quan IT HELP DESK MANAGER Work Phone: n[facility] External Department UnsolicitedStart: 12-07-2024 End: 68-32-0759Fhaxwthu Result EncounterMickillian Quan IT HELP DESK MANAGER Work Phone: n[facility] External Department UnsolicitedStart: 12-07-2024 End: 90-92-7456Mvwbbqc encounter procedureOMID QUAN RN MSN-[facility] [place] Work Phone: Start: 12-07-2024 End: 14-98-0858tsqydsfiscBukayz Hill MD Work Phone: [facility] Work Phone: Start: 12-06-2024 End: 73-87-4095Jycnzw outpatient visit 25 minutesMichelmadalyn Quan IT HELP DESK MANAGER Work Phone: [facility] SWS IMComment on above:Bilateral lower extremity edema (Primary Dx); Pulmonary hypertension (HCC); Dyspnea, unspecified type; Snoring; Anasarca; Essential hypertension ; History of anemia; Hypoalbuminemia; Hypoproteinemia (HCC)Start: 12-06-2024 End: 93-57-4489iyfcijnaytGPCMJD HILLNot AvailableStart: 11-29-2024 End: 02-39-6131wtlzpqcehmZncvft R. ChawlaFacility:FTMCStart: 11-29-2024 End: 33-74-9069smydmazimdRhwcrv Hill MD Work Phone: [facility] Work Phone: Start: 11-29-2024 End: 87-71-5340Xwigdoa encounter procedureRobbie Dale MD-[facility] Work Phone: Start: 11-27-2024 End: 95-62-3896Qwwhowx encounter procedureKenyetta Dove MD-Lab [place] Work Phone: Start: 11-27-2024 End: 17-78-2506eftwgkbtnaVxhkqq Hill MD Work Phone: [facility] Work Phone: Start: 11-26-2024 End: 22-38-1278htacosyoyoVlmbuvk P COOKFacility:EU [place]uskyStart: 11-21-2024 End: 35-83-5351Cubimlw encounter procedureDalia Mar IT HELP DESK MANAGER-Lab [place] Work Phone: Start: 11-21-2024 End: 82-08-2930fgeqqgdskpAnyjiv Hill MD Work Phone: [facility] Work Phone: Start: 11-21-2024 End: 13-70-2742pracwlrebfXIRS R RISALITINot AvailableStart: 11-21-2024 End: 10-34-0277Tsoxtg outpatient visit 25 minutesGinbrent Mar IT HELP DESK MANAGER Work Phone: [facility] SWS IMComment on above:Bilateral lower extremity edema (Primary Dx); Essential hypertension ; Pulmonary hypertension (HCC); Cellulitis of right lower extremity; SnoringStart: 11-09-2024 End: 64-74-7916Xuukpsx encounter procedureSwilmer Pimentel PA-C -Electrodiagnostics Work Phone: Start: 11-09-2024 End: 64-28-3121jansfpzpcpOeevti M WorkmanFacility:[facility]art: 10-25-2024 End: 43-29-7115Gnlymcqpbb Juan Alberto Coon MD Work Phone: [facility]-Infusion Therapy - O/P Work Phone: Start: 10-25-2024 End: 24-66-6243auatujcuvlYgstro Hill MD Work Phone: [facility] Work Phone: Start: 10-16-2024 End: 66-19-1669Ngolyb Beto Valerio MD Work Phone: [facility] SWS OBComment on above:Acute vaginitis (Primary Dx)Start: 10-09-2024 End: 81-23-5944Mvhxadd encounter Ermias Coon MD Work Phone: [facility]-Lab [place] Work Phone: Start: 10-09-2024 End: 62-06-5048Ewlagj outpatient visit 25 minutesSummer M Workman PA Work Phone: [facility] SWS IMComment on above:Lower extremity edema (Primary Dx); SOB (shortness of breath) on exertion; Bilateral leg edema; RosaceaStart: 10-09-2024 End: 45-81-8407lpepjhrxisMhgezo Hill MD Work Phone: [facility] Work Phone: Start: 09-03-2024 End: 44-35-3116vmqrpewjpjYzgwqi Hill MD Work Phone: [facility] Work Phone: Start: 09-03-2024 End: 34-24-4300Kxufvbamdl Tip Carrillo DO-Physical Therapy [place] Start: 32-76-0248Kambxdzwfe Juan Alberto Coon MD Work Phone: [facility]-Physical Therapy [place]Start: 08-29-2024 End: 15-99-1003Gskparu encounter Ermias Coon MD Work Phone: [facility]-Lab [place] Work Phone: Start: 08-29-2024 End: 24-64-2679peeauzglbqZvkhcy Hill MD Work Phone: [facility] Work Phone: Start: 08-14-2024 End: 57-27-6360eeaxsqlklvMCYYB F SABBAGHNot AvailableStart: 97-63-7452xrmjpxerze Willian Jensen MDFacility:[facility] Hospitaltart: 08-06-2024 Registered Juan Alberto Coon MD Work Phone: [facility]-Physical Therapy [place]Start: 08-03-2024 End: 78-29-5248Pqhgsqx encounter procedureMelissa Coon MD Work Phone: [facility]-Lab [place] Work Phone: Start: 08-03-2024 End: 65-35-8817qipawcxhykEqlfso Hill MD Work Phone: [facility] Work Phone: Start: 08-01-2024 End: 34-76-0946jaikyyxyalPAJGJT L HILLNot AvailableStart: 07-23-2024 End: 21-64-6321btjeclnagrQgggqrmWillian Jensen MDFacility:[facility] Start: 07-19-2024 End: 54-74-4504qxprhmilchElbvnk Hill MD Work Phone: [facility] Work Phone: Start: 07-19-2024 End: 94-96-3206Rpfcdds encounter Ermias Coon MD Work Phone: [facility] Orthopedics Work Phone: Start: 55-93-9407Eee-patient / Non-visitMelissa Coon MD Work Phone: [facility] OutPt Work Phone: Start: 06-18-2024 End: 32-47-9560Aqytwhr encounter Ermias Coon MD Work Phone: [facility]-MRI [address] Work Phone: Start: 06-18-2024 End: 20-52-9300dblpdpsbbwRtkzpu Hill MD Work Phone: [facility] Work Phone: Start: 06-11-2024 End: 61-91-7753gadodtaxazKacevyvWillian Jensen MDFacility:[facility] [place] Start: 05-22-2024 End: 16-82-2672cpibbcsrvwCnomgpq D KirnusFacility:FTMCStart: 05-14-2024 End: 79-52-3554Jwjuwqz encounter procedureMelissa Coon MD Work Phone: [facility] [place] Work Phone: Start: 05-07-2024 End: 65-48-3313Sewxwjorw encounterAhsintia Dove MD Work Phone: noms ENDOCRINOLOGYComment on above:Med RefillStart: 03-26-2024 End: 67-59-0414mgtilfhozdZbvully Carmine Jensen MDFacility:[facility] [place] Start: 03-07-2024 End: 41-80-4359Mtxpyts encounter procedureNoms Sws 230 Im Nurse Hand [employer] [place]/PaNOMS SWS IM Comment on above:Bursitis of other bursa of right hipStart: 03-07-2024 End: 08-51-8064Suhcnl Letitia Lawrence NP Work Phone: [facility] IMComment on above:Bursitis of other bursa of right hip (Primary Dx)Start: 02-28-2024 End: 00-21-9139Bejwzx flowsLucy Dove MD Work Phone: noms ENDOCRINOLOGYStart: 02-28-2024 End: 67-45-5457Ankqlc flowsLucy Dove MD Work Phone: [facility] ENDOCRINOLOGYStart: 02-28-2024 End: 64-09-3575Fyzghm outpatient visit 25 minutesKenyetta Dove MD Work Phone: n[facility] ENDOCRINOLOGYComment on above:Postoperative hypothyroidism (CMS/HCC) (Primary Dx); Encounter for dietary consultation; Vitamin D deficiency; Class 3 severe obesity without serious comorbidity with body mass index (BMI) of 40.0 to 44.9 in adult, unspecified obesity type (CMS/HCC)Start: 02-28-2024 End: 50-76-7332gmmmcwvrnwUBWRH F SABBAGHNot AvailableStart: 02-21-2024 End: 79-48-6071sbloxvlvqhRB Melissa Singh II Work Phone: [facility] Work Phone: Start: 02-21-2024 End: 78-18-4470Ajzlwkp encounter procedureDO Melissa OconnorVisitar Work Phone: [facility]-Lab [place] Work Phone: Start: 02-01-2024 End: 61-39-1061Cbntpskt Result EncounterGina R Risaliti IT HELP DESK MANAGER Work Phone: noms External Department UnsolicitedStart: 02-01-2024 End: 28-06-0113Kgvohjpo Result EncounterGina R Risaliti IT HELP DESK MANAGER Work Phone: noms External Department UnsolicitedStart: 02-01-2024 End: 11-83-4781hcgvftcujfNA Melissa Arias [employer] II Work Phone: [facility] Work Phone: Start: 02-01-2024 End: 44-29-3108Hbbnwsh encounter procedureDO Melissa [employer] Work Phone: [facility]-Lab [place] Work Phone: Start: 01-24-2024 End: 69-04-6235Tonune outpatient visit 25 minutesMelissa Coon MD Work Phone: [facility] SWS IMComment on above:Essential hypertension (CMS/HCC) (Primary Dx); Moderate major depression (CMS/HCC); SANDRA (generalized anxiety disorder) (CMS/HCC); Primary osteoarthritis involving multiple joints; Fibromyalgia; Acquired hypothyroidism (CMS/HCC); Irritable bowel syndrome with constipation; Mixed stress and urge urinary incontinence; Urinary retention; Vitamin D deficiency; History of anemia; Chronic bilateral thoracic back pain; Prediabetes; Class 3 severe obesity due to excess calories with serious comorbidity and body mass index (BMI) of40.0 to 44.9 in adult ([facility]); BMI 40.0-44.9, adult ([facility])Start: 01-20-2024 End: 12-59-0981atyuxyhckzPK Melissa Singh II Work Phone: [facility] Work Phone: Start: 01-20-2024 End: 55-06-0452Bkeoctd encounter procedureDO Melissa Anastasianicarubin II Work Phone: [facility] Work Phone: Start: 12-05-2023 End: 75-28-2668icibtdgqorBF Robert J Cromlrubin BAILEY Work Phone: [facility] Work Phone: Start: 12-05-2023 End: 04-33-1090Orrfdoa encounter procedureDO Melissa Singh II Work Phone: [facility] [place] Work Phone: Start: 10-03-2023 End: 75-57-8812wskygcejidUO Melissa Arias Anastasianicarubin II Work Phone: [facility] Work Phone: Start: 10-03-2023 End: 34-53-9568Kdgkwtd encounter procedureDO Melissa Anastasianicarubin II Work Phone: [facility] [place] [facility] Work Phone: Start: 09-20-2023 End: 54-24-8781Tkkhlxjls department patient visitDO Melissa Singh II Work Phone: [facility]-Emergency Room Work Phone: Start: 08-16-2023 End: 02-16-1193zblskrxbjeKF Melissa Singh II Work Phone: [facility] Work Phone: Start: 08-16-2023 End: 13-72-7269Mpjhgix encounter procedureDO Melissa Singh II Work Phone: [facility]-MRI [place] Work Phone: Start: 07-28-2023 End: 50-75-1134Bfmoqgd encounter procedureDO Melissa Singh II Work Phone: [facility]-Lab [place] Work Phone: Start: 07-22-2023 End: 61-51-2786Ysyhcndzd department patient visitDO Melissa Singh II Work Phone: [facility]-Emergency Room Work Phone: Start: 07-08-2023 End: 27-55-5435bratmqewrmDaydla Grob Other [facility] [employer] Other Start: 60-89-7021Gdctyl outpatient visit 15 minutes Roula Love [facility]art: 49-83-0093Aqwxvnaaw encounterStephie Brambila MD Work Phone: RheumatologyStart: 06-14-2023 End: 66-01-9344tbeebwpffsZlogtlgh McCormack Other [place] [employer] Other Start: 86-11-2207Fcjlfonhg encounterBeny MERCEDES GastroenterologyStart: 05-24-2023 End: 69-73-2503hciaiidsoaFXBGZNemo CORONARIFacility:[facility] Centertart: 05-19-2023 End: 28-25-4181crsvdnfyffCTSVT SHASTRIFacility:[facility] HospitalStart: 05-17-2023 End: 81-65-7928tuftowsfxkLRLUI KAMALESH SHASTRIFacility:[facility] Centertart: 03-29-2023 End: 33-36-6315Taammlivy to same day surgery centerPHYSICIAN NO [facility]-Digestive Health Work Phone: Start: 03-29-2023 End: 68-66-3893qksdpawrejTSVSQDCMV NO [facility] Work Phone: Start: 03-27-2023 End: 62-16-3692ddebrlmewiKpihwy Lewis Other [facility] [employer] Other Start: 73-79-7186Ozugly outpatient visit 15 minutes Oscar Philip [facility]: 03-17-2023 End: 31-34-5719msjlxuoomsYTJRGSVJR NO [facility] Work Phone: Start: 03-17-2023 End: 06-67-5833Zbiymvj encounter procedurePHYSICIAN NO [facility] [place] Work Phone: Start: 02-17-2023 End: 04-22-3479Ztbqwqs encounter procedurePHYSICIAN NO [facility] [place] Work Phone: Start: 02-17-2023 End: 80-04-3742tbnnfrrxxpRVKOLUTXX NO [facility] Work Phone: Start: 49-98-8635Etmhhe outpatient visit 25 minutes Beny HendricksonG GastroenterologyStart: 79-98-6383Jhjdh Rosio Billings Work Phone: [phone]-LkjxmSt. [facility] [address] DO Work Phone: Start: 01-24-2023 End: 76-49-9468Ovkkcosze department patient visitDO Donya Billings Work Phone: [facility]-Emergency Room Work Phone: Start: 01-21-2023 End: 37-78-6333gadaqmbcwqKZLynnette Billings Work Phone: [facility] Work Phone: Start: 01-21-2023 End: 61-12-0026Ougqmrx encounter procedureDO Donya Billings Work Phone: [facility]-Lab [address] Work Phone: start: 12-30-2022 End: 19-57-6526Brwgnvqxp department patient visitDO Donya Billings Work Phone: [facility]-Emergency Room Work Phone: Start: 12-29-2022 End: 12-86-3581evcwzuirimPIVonda Billings Work Phone: [facility] Work Phone: Start: 12-29-2022 End: 55-84-4794Osrjozv encounter procedureDO Donya Billings Work Phone: [facility] Work Phone: Start: 12-20-2022 End: 20-98-7400Slkdxzzoi department patient visitDO Donya Billings Work Phone: [facility]-Emergency Room Work Phone: Start: 71-08-9812tswriqvaruBpmbulatoryDr. Phillip Benjamin Facility:[id number]: 70-30-5153TPH, Provider: Phillip Benjamin, Status: Pen, Time: 8:40 AMDonya Billings Work Phone: [phone]-Zyyyo [facility] [address] DO Work Phone: Start: 00-78-7169Imugtp outpatient visit 25 minutes Donya Billings Work Phone: [phone]-Yvdbq [facility] [address] DO Work Phone: Start: 72-45-3699Ozvqb Rosio Andriy Awa Work Phone: [phone]-Beyis [facility] [address] DO Work Phone: Start: 55-66-0617cabuunbtzySxDr. Donya Billings Facility:[id number]: 11-05-2022 End: 07-50-4536Lqtweytvh department patient visitDO Donya Billings Work Phone: [facility]-Emergency Room Work Phone: Start: 14-57-9003Pkmnu Rosio Billings Work Phone: [phone]-Dphmk [facility] [address] [place] Work Phone: Start: 16-08-1255ozhjbxwagkAqDr. Donya Billings Facility:[id number]: 87-02-2347Kugzcc outpatient visit 25 minutesDonya Billings Work Phone: [facility] Work Phone: Start: 50-79-7272qbrgckcpoaJnDr. Donya Billings Facility:[id number]: 10-07-2022 End: 96-92-6493vypwhmpfdyGY GREGORY S GRANTFacility:L1Nzwmc: 10-01-2022 End: 99-80-9692xufvmchaxaVCISEGW PROVIDERFacility:METROHealthStart: 10-01-2022 End: 56-60-7537Tklvighjhz hospital visit by physicianMary [facility] RadiologyComment on above:Thoracic spine painStart: 78-89-8575Uwowzm OnlyJavad Leach MD Work Phone: [facility]opedic SpineStart: 09-17-2022 End: 15-16-9450Iexsqs Oseas Leach MD Work Phone: [facility] Orthopedic SpineStart: 09-17-2022 End: 76-78-2419Pypetwo encounter procedureDO Donya Billings Work Phone: [facility]-CT [address] Work Phone: Start: 09-02-2022 End: 34-27-9574wrfrciowruWKHJKVV PROVIDERFacility:METROHealthStart: 09-02-2022 End: 67-81-4598Mhwyul outpatient new 45 minutesJavad Leach MD Work Phone: [facility] Orthopedic SpineComment on above:Thoracic spine pain (Primary Dx)Start: 09-01-2022 End: 25-76-6614ehcmnctgewUqthwfb Ditty Other [facility] [employer] Other Start: 61-07-3468Jkdfeku encounter procedureCameron DittyFPG GastroenterologyStart: 51-58-8299Xamnpr OnlyJavad Leach MD Work Phone: [facility] NeurosurgeryStart: 08-10-2022 End: 80-11-2099vsapbavnjxIY Donya Billings Work Phone: [facility] Work Phone: Start: 08-10-2022 End: 58-51-6535Alckila encounter procedureDO Donya Billings Work Phone: [facility]-Lab [place] Work Phone: Start: 27-17-8307AZO, Provider: Phillip Benjamin, Status: Pen, Time: 1:10 PMDonya Billings Work Phone: [phone]-Avuog [facility] DO Work Phone: Start: 57-77-1938Shqpyg outpatient visit 25 minutes Donya Billings Work Phone: [phone]-Gupch [facility] [address] DO Work Phone: Start: 34-51-7877hjcrwlazqgGtulatoryDr. Phillip Benjamin Facility:[id number]: 27-48-7924Ngpwg UpdateDonya Billings Work Phone: [phone]-Nytvp [facility] [address] DO Work Phone: Start: 15-40-7144rxmghgkupjYc. Donya Billings Facility:[id number]: 07-15-2022 End: 28-33-9361xqgfwnjgdvLB ZHANE S ANNALEE ChampionFacility:G3Ixdlu: 07-13-2022 End: 83-61-3795urnksvkwjpXhnotut Ditty Other [place] [employer] Other Start: 56-41-7422Zpfcwjrmt encounterCameron DittyFPG GastroenterologyStart: 06-21-2022 End: 74-00-9628Dnedissup department patient visitDO Donya Billings Work Phone: [facility]-Emergency Room Work Phone: Start: 06-15-2022 End: 39-48-5937evlzloxshiZIVonda Billings Work Phone: [facility] Work Phone: Start: 06-15-2022 End: 67-73-6268Roqljlq encounter procedureDO Donya Billings Work Phone: [facility]-Electrodiagnostics Work Phone: Start: 88-41-4195jhuwxiwmagSjJaycee Benjamin Facility:[id number]: 05-12-2022 End: 38-80-7793riglrcqlwuVzysfpu Ditty Other [place] [employer] Other Start: 80-30-4289Yluqign encounter procedureCameron DittyFPG GastroenterologyStart: 05-04-2022 End: 42-05-2027mnzukmpnpgFHVonda Billings Work Phone: [facility] Work Phone: Start: 05-04-2022 End: 46-31-7788Slnjusd encounter procedureDO Donya Billings Work Phone: [facility]-MRI Strub RdStart: 04-28-2022 End: 98-97-6414xrhkiwtkroBsurws Derek Other [place] [employer] Other Start: 85-79-6814Vmjidr outpatient visit 15 minutes [facility] RoadStart: 04-15-2022 End: 06-96-1307eqeevyxjijEU ZHANE S MANTILLA .Facility:P0Qnyyp: 04-08-2022 ambulatoryDR ZHANE S MANTILLA .Facility:Y3Evszi: 01-06-2022 End: 71-58-2041mrhrxqvzunRS ZHANE S MANTILLA .Facility:A7Rpgsc: 12-08-2021 End: 55-64-8026jeklkbazgkIU ZHANE S MANTILLA .Facility:Y6Fgpkf: 11-12-2021 End: 69-00-8533vzddkvirpfPF ZHANE S MANTILLA .Facility:A6Drfql: 10-13-2021 End: 01-99-7646eynxgohrguCN ZHANE S MANTILLA .Facility:U0Foygv: 04-04-1996 End: 50-25-6480Ogiivkj encounter procedureConversion [facility] Start: 01-52-0375Fyasuzg OnlyConversion [facility] Procedures DateProcedureProcedure DetailPerforming ClinicianStart: 09-31-3693RSJ of right shoulderMelissa Coon MD Work Phone: Start: 82-40-1559DuuzveagzmiVfaiu Sabbagh MD Work Phone: Start: 71-87-5123Ikakhpukv mammography of bilateral breastLisa Coon MD Work Phone: Start: 36-46-3632HIEBQKE MYCOPLASMAS CESAR, SWABAmanda Valerio MD Work Phone: start: 94-19-9751Aiayd chlamydia trachomatis amplified probe tqAmanda Valerio MD Work Phone: start: 91-88-4467VCO, APT HPV,RFX 16/18,45Amanda Valerio MD Work Phone: start: 65-43-1796TCI of left kneeRobert Hill MD Work Phone: Start: 18-77-0042Cmpad radiography of pelvisMelissa Coon MD Work Phone: Start: 49-53-7588F-ray of left knee, four viewsMelissa Coon MD Work Phone: Start: 88-32-9155Mruqd X-ray of right shoulderMelissa Coon MD Work Phone: Start: 89-94-8770D-ray of left knee, four Fredi Coon MD Work Phone: Start: 69-34-7398Xqclb chest X-rayMelissa Coon MD Work Phone: Start: 04-18-8215C-reactive protein high sensitivity Omid L Rodney [employer] Work Phone: Start: 77-14-5009Eunoefqxikgbf metabolic panelMichele L Rodney IT HELP DESK MANAGER Work Phone: Start: 92-99-7465Xdxoy albumin quantitativeMichele L Rodney IT HEL[employer] DESK MANAGER Work Phone: Start: 65-55-1416J-ray of lumbar spine, two or three viewsMelissa Coon MD Work Phone: Start: 00-41-5631Unijjljwlimqkidqexm hormone measurementMelissa Coon MD Work Phone: Comment on above:ACTH reference interval for samples collected between 7 and10 AM.Performed at: [address] [id number] Director: Ramirez Ca PhD, Phone: [phone]: 67-24-3475GS pre/post mri xrJayme Coon MD Work Phone: Start: 70-92-7994EX lumbar spine wo Brinda Coon MD Work Phone: Start: 32-24-8351Ctftc Strep (POC)Melissa Coon MD Work Phone: Start: 99-18-3031Jwitvoun blood count with white cell differential, automatedGina R Risaliti IT HEL[employer] DESK MANAGER Work Phone: Start: 68-36-2946Bvcpw albumin quantitativeGina R Risaliti IT HELP DESK MANAGER Work Phone: Start: 27-79-0521Dlpmu dip stick/tablet rgnt non-auto w/o micrscpGina R Risaliti IT HEL[employer] DESK MANAGER Work Phone: Start: 01-20-2024 End: 42-81-0015Icxtrgxnq mammography of bilateral breastsDO Melissa BrownCasetext Work Phone: Start: 73-95-0207LTHHG Antigen (POC)DO Melissa Oconnorrubin [employer] Work Phone: Start: 18-14-0740Yhdrb X-ray of right shoulderDO Melissa OconnorCasetext Work Phone: Start: 69-43-7691UI thoracic spine wo conDO Melissa OconnorCasetext Work Phone: Start: 68-84-5488Sibhd culture for bacteria, including anaerobic screenDO Melissa OconnorCasetext Work Phone: Start: 65-53-8382PZFV-CoV-2, Influenza & RSV (PCR)DO Melissa OconnorCasetext Work Phone: Start: 06-25-3323Zrrxe chest X-rayDO Melissa OconnorCasetext Work Phone: Start: 09-54-9216CxgvwhkxvapztyuwfttlkrwnsyTKMVYBYCQ NO FAMILYStart: 02-60-6880Juvbwl scan of lower limb veinsPHYSICIAN NO FAMILY Start: 20-63-2256Augrn chest X-rayDO Donya Billings Work Phone: Start: 86-45-4582LU of head without contrastDO Donya Billings Work Phone: Start: 01-89-6960AE angiography of thoraxDO Donya Billings Work Phone: Start: 01-55-8081Cgymi chest X-rayDO Donya Billings Work Phone: Start: 12-29-2022 End: 30-60-4238Ikirxzelo mammography of bilateral breastsDO Donya Awa Work Phone: Start: 59-81-2061Biweh chest X-rayDO Donya Billings Work Phone: Start: 41-50-9088KkwqgsbsxdqpjarhQacoomb S Grant Work Phone: Start: 23-71-8868Mbasj chest X-rayDO Donya Billings Work Phone: Start: 85-59-7969KU NEURO IMAGE IMPORTJavad Leach MD Work Phone: Start: 50-01-0425Dzlipxbc tomography of thoracic spine without contrastDO Donya Billings Work Phone: Start: 36-19-5733YO of chest without contrastDO Donya Billings Work Phone: Start: 75-64-5872YJ of abdomen and pelvis without contrastDO Donya Billings Work Phone: Start: 96-32-6546XD thoracic spine wo conDO Donya Billings Work Phone: Start: 22-96-6766RC pre/post mri xrayDO Montoyaory Awa Work Phone: Start: 19-73-1998FnmomhkkryqQdygey Hill MD Work Phone: Start: 35-92-0760ZFCOFQVEZ CYTOLOGY GYNConversion Beaker ApStart: 21-64-7515Jvxxtfyvnmo observation [Identifier] in Cervix by Cyto stainSummilady SALAS Work Phone: Cesarean sectionDonya Billings Work Phone: H/O: sectionPrevious sectionDO Melissa Singh II Work Phone: H/O: hysterectomyH/O: hysterectomyDO Melissa Singh II Work Phone: History Of Prior SurgeryDonya Billings Work Phone: History of thyroidectomyS/P thyroidectomyDO Melissa Singh II Work Phone: HysterectomyGregory S Awa Work Phone: Procedure on backGregory S Awa Work Phone: ThyroidectomyGregory S Awa Work Phone: Total colonoscopyGregory S Awa Work Phone: Plan of Treatment DateCare ActivityDetailAuthorStart: 43-64-4384Lbjhtoief for malignant neoplasm of cervixNOMS HealthcareStart: 10-33-4116Dylnuxedkjo [Mass/volume] in Serum or PlasmaCholesterolMetroHealthStart: 63-64-8813Asqvpirn (RZV) Vaccine (1 of 2) Shingles (RZV) Vaccine (1 of 2)MetroHealthStart: 21-11-1007Ocjuhnri Screening Diabetes ScreeningPortland ClinicStart: 57-42-2206Lfujfctqo for malignant neoplasm of breastMammogramNOMS HealthcareStart: 02-11-2026 End: 55-96-2637Fpycmyu encounter fjpqqdofl05/15/2026 11:00 AM EDT Office Visit [facility] [address] [place] [address] Kenyetta Dove MD [address] [place] [address] [facility] EndocrinologyStart: 09-02-2026Medicare Annual Wellness (AWV)Medicare Annual Wellness (AWV)[facility] HealthcareStart: 07-17-2026Medicare Annual Wellness (AWV)Medicare Annual Wellness (AWV)[facility] HealthcareStart: 02-26-2025 End: 46-36-1995Bysfhkz encounter ikxzmhyxw28/30/2025 10:30 AM EDT Office Visit [facility] [address] [place] [address] Kenyetta Dove MD [address], [address] [place], [place] [id number] NOMAndriy ENDOCRINOLOGYStart: 47-27-9019Bubamuz referral [facility] Work Phone: Start: 91-97-5082FeyvfdpntGood Samaritan Hospital Start: 02-12-2025 End: 33-06-9314Lypqiaj encounter procedureNOMS Lin OBGYNComment on above: Encounter for gynecological examination without abnormal finding; Hormone imbalance; Pelvic pain in femaleStart: 02-12-2025 End: 41-72-8842Ivlfdltwsrga / ancillary services ulfqfooluw23/16/2025 2:00 PM EDT Ancillary Procedure [facility] [address] [place] [address] NOMS Lin OBGYNStart: 02-12-2025 End: 01-21-9741Uzyfhtiilwe [Units/volume] in Serum or PlasmaTSH Lab Routine Postoperative hypothyroidism Expected: 02/12/2025 (Approximate), Expires: 02/12/2026[facility] HealthcareComment on above:Expected: 02/12/2025 (Approximate), Expires: 02/12/2026Start: 02-12-2025 End: 25-28-4387Mqvwejefj (T4) free [Mass/volume] in Serum or PlasmaT4, free Lab Routine Postoperative hypothyroidism Expected: 02/12/2025 (Approximate), Expires: 02/12/2026[facility] HealthcareComment on above:Expected: 02/12/2025 (Approximate), Expires: 02/12/2026Start: 02-12-2025 End: 40-27-9912Qgcahlufkywedoua (T3) Free [Mass/volume] in Serum or PlasmaT3, free Lab Routine Postoperative hypothyroidism Expected: 02/12/2025 (Approximate), Expires: 02/12/2026[facility] Healthcare Work Phone: Comment on above:Expected: 02/12/2025 (Approximate), Expires: 02/12/2026Start: 02-12-2025 End: 51-00-1971Koylrds encounter procedureNOMS ENDOCRINOLOGYStart: 02-11-2025 MG Breast - bilateral ScreeningSelect Medical Specialty [facility]innatitart: 68-36-7742Zvqyirifz mammography of bilateral breastsMM screening mammo BI w/CAD [facility]art: 37-40-0325Sdfdkjr referral[facility] Work Phone: Start: 02-06-2025 End: 36-07-0953Bbckqjn encounter procedureNOWHITE MEMORIAL [facility] IMStart: 01-29-2025 End: 49-22-5422Jiyhxtb, fastingInsulin, fasting Lab Routine Hormone imbalance Expected: 01/29/2025 (Approximate), Expires: 01/29/2026[facility] HealthcareComment on above:Expected: 01/29/2025 (Approximate), Expires: 01/29/2026Start: 01-29-2025 End: 10-46-2807Dahsstkjqdlcyziy (T3) [Mass/volume] in Serum or PlasmaT3 Lab Routine Hormone imbalance Expected: 01/29/2025 (Approximate), Expires: 01/29/2026[facility] HealthcareComment on above:Expected: 01/29/2025 (Approximate), Expires: 01/29/2026Start: 01-29-2025 End: 60-08-7092Ihzogycycptuvqjd (T3) Free [Mass/volume] in Serum or PlasmaT3, free Lab Routine Hormone imbalance Expected: 01/29/2025 (Approximate), Expires: 01/29/2026[facility] HealthcareComment on above:Expected: 01/29/2025 (Approximate), Expires: 01/29/2026Start: 54-22-7348Dwbxsylgt vaccinationCENTRAL VALLEY [facility]ICAL [facility]ENTER HealthcareStart: 62-64-5475Vcrdsoehl for malignant neoplasm of breastMammogramCENTRAL VALLEY MEDICAL [facility] Healthcare Start: 12-20-2024 End: 49-62-4741Nliznkz encounter qlahprmsb88/24/2025 3:00 PM EDT Office Visit [facility] [address] [place] [phone] [facility] IMStart: 12-19-2024 End: 83-64-5318Ntwufilkjqek / ancillary services vtipvkgrag37/23/2025 11:45 AM EDT Ancillary Procedure [facility] [address] [place] [phone] [facility] CTStart: 12-07-2024 End: 01-05-2025 reactive protein [Mass/volume] in Serum or Plasma by High sensitivity methodHigh sensitivity CRP Lab Routine Bilateral lower extremity edema Pulmonary hypertension (HCC) Dyspnea, unspecified type Snoring Anasarca Essential hypertension History of anemia Hypoalbuminemia Hypoproteinemia (HCC) Expected: 12/07/2024 (Approximate), Expires: 01/05/2025[facility] HealthcareComment on above:Expected: 12/07/2024 (Approximate), Expires: 01/05/2025Start: 12-07-2024 End: 91-20-4589Vmrtihnpleqtx metabolic 2000 panel - Serum or PlasmaComprehensive metabolic panel Lab Routine Bilateral lower extremity edema Pulmonary hypertension (HCC) Dyspnea, unspecified type Snoring Anasarca Essential hypertension History of anemia Hypoalbuminemia Hypoproteinemia (HCC) Expected: 12/07/2024 (Approximate), Expires: 01/05/2025[facility] HealthcareComment on above: Expected: 12/07/2024 (Approximate), Expires: 01/05/2025Start: 12-07-2024 End: 39-76-9937Tsutctndacj sedimentation rateSedimentation rate, automated Lab Routine Bilateral lower extremity edema Pulmonary hypertension (HCC) Dyspnea, unspecified type Snoring Anasarca Essential hypertension History of anemia Hypoalbuminemia Hypoproteinemia (HCC) Expected: 12/07/2024 (Approximate), Expires: 01/05/2025[facility] Healthcare Work Phone: Comment on above:Expected: 12/07/2024 (Approximate), Expires: 01/05/2025Start: 12-07-2024 End: 55-47-2638WAVM K+L LT CHAINS,QN,SFREE K+L LT CHAINS,QN,S Lab Routine Bilateral lower extremity edema Pulmonary hypertension (HCC) Dyspnea, unspecified type Snoring Anasarca Essential hypertension History of anemia Hypoalbuminemia Hypoproteinemia (HCC) Expected: 12/07/2024 (Approximate), Expires: 01/05/2025[facility] HealthcareComment on above:Expected: 12/07/2024 (Approximate), Expires: 01/05/2025Start: 12-07-2024 End: 06-09-4201Aibacerpoo a1c with eagHemoglobin a1c with eag Lab Routine Bilateral lower extremity edema Pulmonary hypertension (HCC) Dyspnea, unspecified type Snoring Anasarca Essential hypertension History of anemia Hypoalbuminemia Hypoproteinemia (HCC) Expected: 12/07/2024 (Approximate), Expires: 01/05/2025[facility] HealthcareComment on above:Expected: 12/07/2024 (Approximate), Expires: 01/05/2025Start: 12-07-2024 End: 04-61-5241Qmlehxupy [Mass/volume] in Serum or PlasmaMagnesium Lab Routine Bilateral lower extremity edema Pulmonary hypertension (HCC) Dyspnea, unspecif ied type Snoring Anasarca Essential hypertension History of anemia Hypoalbuminemia Hypoproteinemia (HCC) Expected: 12/07/2024 (Approximate), Expires: 01/05/2025[facility] HealthcareComment on above:Expected: 12/07/2024 (Approximate), Expires: 01/05/2025Start: 12-07-2024 End: 81-24-1160Ckzrswjmtixk/Creatinine panel in random UrineMicroalbumin / creatinine urine ratio Lab Routine Bilateral lower extremity edema Pulmonary hypertension (HCC) Dyspnea, unspecified type Snoring Anasarca Essential hypertension History of anemia Hypoalbuminemia Hypoproteinemia (HCC) Expected: 12/07/2024 (Approximate), Expires: 01/05/2025[facility] HealthcareComment on above: Expected: 12/07/2024 (Approximate), Expires: 01/05/2025Start: 12-07-2024 End: 37-40-2720Cadkufl Ab [Titer] in Serum by ImmunofluorescenceANA Lab Routine Bilateral lower extremity edema Pulmonary hypertension (HCC) Dyspnea, unspecified type Snoring Anasarca Essential hypertension History of anemia Hypoalbuminemia Hypoproteinemia (HCC) Expected: 12/07/2024 (Approximate), Expires: 01/05/2025[facility] HealthcareComment on above:Expected: 12/07/2024 (Approximate), Expires: 01/05/2025Start: 12-07-2024 End: 47-34-8464Tknubgi electrophoresis, serumProtein electrophoresis, serum Lab Routine Bilateral lower extremity edema Pulmonary hypertension (HCC) Dyspnea, unspecified type Snoring Anasarca Essential hypertension History of anemia Hypoalbuminemia Hypoproteinemia (HCC) Expected: 12/07/2024 (Approximate), Expires: 01/05/2025NOMS HealthcareComment on above:Expected: 12/07/2024 (Approximate), Expires: 01/05/2025Start: 12-07-2024 End: 05-43-3280Tonvqxfyxt factor [Units/volume] in Serum or PlasmaNOMS HealthcareComment on above:Expected: 12/07/2024 (Approximate), Expires: 01/05/2025Start: 12-07-2024 End: 14-50-2136Zdvstobvsq complete panel - UrineNOMS HealthcareComment on above: Expected: 12/07/2024 (Approximate), Expires: 01/05/2025Start: 12-07-2024 [facility]: 12-03-2024 End: 16-07-3149Kyatm metabolic 1998 panel - Serum or PlasmaBasic metabolic panel Lab Routine Bilateral lower extremity edema Expected: 12/03/2024, Expires: [facility] HealthcareComment on above:Expected: 12/03/2024, Expires: 01/21/2025 Start: 11-22-2024 End: 33-60-3491Dtlsi metabolic 1998 panel - Serum or PlasmaBasic metabolic panel Lab Routine Bilateral lower extremity edema Expected: 11/22/2024 (Approximate), Expires: 12/21/2024[facility] Work Phone: Comment on above:Expected: 11/22/2024 (Approximate), Expires: 12/21/2024Start: 11-22-2024 End: 78-11-2947Nnwxcgslpkt peptide B [Mass/volume] in BloodB-type natriuretic peptide Lab Routine Bilateral lower extremity edema Expected: 11/22/2024 (Approximate), Expires: 12/21/2024[facility] HealthcareComment on above:Expected: 11/22/2024 (Approximate), Expires: 12/21/2024Start: 10-25-2024 Adrenocorticotropic hormone measurementSelect Medical Specialty Hospital - Cincinnatitart: 95-55-5711QltalwtlqSelect Medical Specialty Hospital - Cincinnatitart: 10-10-2024 End: 22-01-8670Hrgvpgmavrnys metabolic 2000 panel - Serum or PlasmaComprehensive metabolic panel Lab Routine SOB (shortness of breath) on exertion Bilateral leg edemaExpected: 10/10/2024 (Approximate), Expires: 01/07/2025[facility] Healthcare Comment on above:Expected: 10/10/2024 (Approximate), Expires: 01/07/2025Start: 10-10-2024 End: 39-58-9477Bwvwnhgondro/Creatinine panel in random UrineMicroalbumin / creatinine urine ratio Lab Routine SOB (shortness of breath) on exertion Bilateral leg edema Expected: 10/10/2024 (Approximate), Expires: 01/07/2025[facility] HealthcareComment on above:Expected: 10/10/2024 (Approximate), Expires: 01/07/2025Start: 10-10-2024 End: 40-01-9381Shopeijghob peptide B [Mass/volume] in BloodB-type natriuretic peptide Lab Routine SOB (shortness of breath) on exertion Bilateral leg edema Expected: 10/10/2024 (Approximate), Expires: 01/07/2025[facility] HealthcareComment on above:Expected: 10/10/2024 (Approximate), Expires: 01/07/2025Start: 08-01-2024 End: 57-73-6993Yhvrslw encounter gwswqxgyv11/05/2025 1:00 PM EST Office Visit [facility] [address] [place] [phone] Melissa Coon MD [address] [place] [address] [facility] IMStart: 10-94-4212EA pre/post mri xrayXR pre/post mri xraySelect Medical Specialty Hospital - [facility]innatitart: 11-52-0878SksnfafffSelect Medical Specialty Hospital - Cincinnatitart: 71-71-0993LG lumbar spine wo conMR lumbar spine wo con [facility] CenterStart: 47-79-9893YK Lumbar spine WO contrast [facility]: 02-28-2024 End: 59-61-5350Ypgalolieem [Units/volume] in Serum or PlasmaTSH Lab Routine Postoperative hypothyroidism (CMS/HCC) Expected: 02/28/2024 (Approximate), Expires:02/27/2025[facility] HealthcareComment on above:Expected: 02/28/2024 (Approximate), Expires: 02/27/2025Start: 02-28-2024 End: 74-61-2209Ponjvorap (T4) free [Mass/volume] in Serum or PlasmaT4, free Lab Routine Postoperative hypothyroidism (CMS/HCC) Expected: 02/28/2024 (Approximate), Expires: 02/27/2025[facility] HealthcareComment on above:Expected: 02/28/2024 (Approximate), Expires: 02/27/2025Start: 02-28-2024 End: 71-38-7957Kadsckduotecaqof (T3) Free [Mass/volume] in Serum or PlasmaT3, free Lab Routine Postoperative hypothyroidism (CMS/HCC) Expected: 02/28/2024 (Approximate), Expires: 02/27/2025[facility] Healthcare Work Phone: Comment on above:Expected: 02/28/2024 (Approximate), Expires: 02/27/2025Start: 02-28-2024 End: 35-71-1215Podslwp encounter vdhpklhil34/01/2024 9:50 AM EDT Office Visit [facility] [address] [place] [phone] Kenyetta Dove MD [address], [address] [place] [address] ArrivedNEW [facility]YSIDE [facility] ENDOCRINOLOGYComment on above:Arrived Start: 02-20-2024 End: 11-37-1252Ecrmqbz encounter reuzhnvra39/23/2024 10:30 AM EDT Office Visit [facility] [address] [place] [address] Kenyetta Dove MD [address] [place] [address] [facility] ENDOCRINOLOGYStart: 63-75-3505Cwtfsrpzg vaccinationInfluenza Vaccine (#1)[facility] HealthcareStart: 01-24-2024 End: 21-52-4670ANL W Auto Differential panel - BloodCBC and differential Lab Routine History of anemia Expected: 01/24/2024 (Approximate), Expires: 12/29[facility] Healthcare Work Phone: Comment on above:Expected: 01/24/2024 (Approximate), Expires: 01/23/2025Start: 01-24-2024 End: 38-90-2427Ezaetajvhliao metabolic 2000 panel - Serum or PlasmaComprehensive metabolic panel Lab Routine Essential hypertension (CMS/HCC) Expected: 01/24/2024 (Approximate), Expires: 01/23/2025[facility] HealthcareComment on above: Expected: 01/24/2024 (Approximate), Expires: 01/23/2025Start: 01-24-2024 End: 07-94-3007Axtzjsdo [Mass/volume] in Serum or PlasmaFerritin Lab Routine History of anemia Expected: 01/24/2024 (Approximate), Expires: 01/23/2025[facility] HealthcareComment on above:Expected: 01/24/2024 (Approximate), Expires: 01/23/2025Start: 01-24-2024 End: 67-75-1939Qnvs and Iron binding capacity panel - Serum or PlasmaIron and TIBC Lab Routine History of anemia Expected: 01/24/2024 (Approximate), Expires: 01/23/2025[facility] HealthcareComment on above:Expected: 01/24/2024 (Approximate), Expires: 01/23/2025Start: 01-24-2024 End: 66-68-4522Imzhl 1996 panel - Serum or PlasmaLipid panel Lab Routine Essential hypertension (CMS/HCC) Expected: 01/24/2024 (Approximate), Expires: 01/23/2025[facility] HealthcareComment on above:Expected: 01/24/2024 (Approximate), Expires: 01/23/2025Start: 01-24-2024 End: 83-62-3001Zjxzzaxeryke/Creatinine panel in random UrineMicroalbumin / creatinine urine ratio Lab Routine Essential hypertension (CMS/HCC) Expected: 01/24/2024 (Approximate), Expires: 01/23/2025[facility] HealthcareComment on above: Expected: 01/24/2024 (Approximate), Expires: 01/23/2025Start: 01-24-2024 End: 80-96-5174Anqgbcbchwa [Units/volume] in Serum or PlasmaTSH Lab Routine Acquired hypothyroidism (CMS/HCC) Expected: 01/24/2024 (Approximate), Expires: 01/23/2025[facility] HealthcareComment on above:Expected: 01/24/2024 (Approximate), Expires: 01/23/2025Start: 01-24-2024 End: 14-37-1466Yhokurwdvb complete panel - UrineUrinalysis with microscopic Lab Routine Essential hypertension (CMS/HCC) Expected: 01/24/2024 (Approximate), Expires: 01/23/2025[facility] HealthcareComment on above:Expected: 01/24/2024 (Approximate), Expires: 01/23/2025Start: 18-97-8194Jwbqokblx for malignant neoplasm of breastUC Healthtart: 57-40-9413Zorwjwxjh for malignant neoplasm of cervixNOMS HealthcareStart: 75-48-0782Lzzunavi identified in Blood by CultureSelect Medical Specialty Hospital - Cincinnatitart: 19-64-7027SNS, Provider: Phillip Benjamin, Status: Pen, Time: 3:00 PMFUV, Provider: Phillip Benjamin, Status: Pen, Time: 3:00 PM-[place] [address] DO Work Phone: Start: 78-98-8127NyijorlhxGood [facility]aritan [facility] Start: 03-29-2023 End: 17-79-9034EvldbdiuySelect Medical Specialty Hospital - Cincinnatitart: 92-60-0403Zlhemwatg vaccinationInfluenza Vaccine (#1)[facility]art: 36-17-8856Zybvus scan of lower limb veinsUS venous duplex LE [facility] Hospitaltart: 16-37-8224JZ Lower extremity vein - [facility] Southtart: 08-04-2023Medicare Annual Wellness (AWV)Medicare Annual Wellness (AWV)[facility] HealthcareStart: 27-46-9278SR of head without contrastCT head/brain wo [facility] CenterStart: 06-92-5217EY Unspecified body region WO [facility] Hospitaltart: 60-83-0483LZQ, Provider: Phillip Benjamin, Status: Pen, Time: 8:40 AMFUV, Provider: Phillip Benjamin, Status: Pen, Time: 8:40 AMMPUnited [facility] [address] [place] Work Phone: Start: 87-18-9139SCL, Provider: Phillip Benjamin, Status: Pen, Time: 3:00 PMFUV, Provider: Phillip Benjamin, Status: Pen, Time: 3:00 PMMPFrancisc[facility] [address] DO Work Phone: Start: 64-54-8307MFBC, Provider: [place] RODRIGUEZI ULTRASOUND 01,[id number], Status: Pen, Time: 7:45 AMECHO, Provider: [place] RODRIGUEZI ULTRASOUND 01,[id number], Status: Pen, Time: 7:45 AMMer[facility]- [place] [address] [place] Work Phone: Start: 09-30-2022 End: 53-14-4113GXUEKADI POWERSHARE IMAGES TO EPICDOWNLOAD POWERSHARE IMAGES TO EPIC Imaging Routine Thoracic spine pain Expected: 09/30/2022, Expires: 10/01/2023[facility] [employer] Work Phone: Comment on above:Expected: 09/30/2022, Expires: 10/01/2023Start: 09-17-2022 End: 72-47-0769CEIKPTSQ POWERSHARE IMAGES TO EPICDOWNLOAD POWERSHARE IMAGES TO EPIC Imaging Routine Thoracic spine pain Expected: 09/17/2022, Expires: 09/18/2023[facility] [employer] Work Phone: Comment on above:Expected: 09/17/2022, Expires: 09/18/2023Start: 09-06-2022 End: 50-33-5717GA Thoracic spine WO contrastCT T-SPINE W/O CONTRAST Imaging Within 1 week Thoracic spine pain Expected: 09/06/2022, Expires: 09/07/2023[facility] [employer] Work Phone: Comment on above:Expected: 09/06/2022, Expires: 09/07/2023Start: 09-02-2022 End: 94-24-9815Teqspbc encounter kwvdekgww78/06/2023 Office Visit Orthopedics Javad Leach MD [facility] [place] [address] [facility] Orthopedic SpineStart: 08-24-2022 End: 36-26-7062VIBCZQUC POWERSHARE IMAGES TO EPICDOWNLOAD POWERSHARE IMAGES TO EPIC Imaging Routine Cervical spondylosis with myelopathy Expected: 08/24/2022, Expires: 08/25/2023[employer] Work Phone: Comment on above:Expected: 08/24/2022, Expires: 08/25/2023Start: 21-80-5786Cmsyagynu for malignant neoplasm of colonNOAR HealthcareStart: 15-31-2081DwivacftoSelect Medical Specialty Hospital - Cincinnatitart: 2022 Cholesterol [Mass/volume] in Serum or PlasmaCholesterolMetroHealthStart: 77-89-3096Vltvx panelLipid ScreeningUC Healthtart: 85-48-5147Afwaboagn for malignant neoplasm of colonMetroHealthStart: 14-61-9574Swmivnzxy vaccination Influenza Vaccine (#1)MetroHealthStart: 25-11-2195Ndrhadobk vaccinationINFLUENZA (#1)[facility]althtart: 66-39-3554ZunpgsewzpwDEKKZINKSNlpnqidwp ClinicStart: 04-71-3592Rcvnpziry for malignant neoplasm of breastMammographyMetroHealth Start: 09-30-6128Guuhdr wellness visitAnnual Wellness Visit (G0438)[facility] Start: 05-65-6132HTO TESTINGHPV TESTINGUC Healthtart: 2007 Screening for malignant neoplasm of cervixHPV TestingUC Healthtart: 39-65-9662Gvigluejm for malignant neoplasm of cervixPap SmearCENTRAL VALLEY [facility] Healthcare Start: 72-41-1356SQZ TESTINGPAP TESTINGUC Healthtart: 1998 Screening for malignant neoplasm of cervixMetroHealthStart: 28-27-6958Jvgkh microalbumin profileDTAP,TDAP,TD (1 - Tdap)[facility]: 1995 ANNUAL PCP TEAM CHRONIC DISEASE VISITANNUAL PCP TEAM CHRONIC DISEASE VISIT [facility]: 39-87-0938CLQMCBEGQ C SCREENINGHEPATITIS C SCREENING [facility]art: 19-30-6835Quegtxixo C screeningMetParkview Health Bryan HospitalStart: 93-97-5439OLF SCREENINGHIV SCREENINGUC Healthtart: 11-19-6658OCN screeningHIV ScreeningUC Healthtart: 67-77-6084Ecxcxwm + diphtheria + acellular pertussis vaccine (product)Tdap BoosterMetroHealthStart: 85-02-5648BRD screeningHIV TestFulton County Health CenterStart: 34-72-1435Khwzv microalbumin profile DTaP,Tdap,Td Vaccine (4 - Tdap)[facility]art: 16-61-7180KBXCE-19 Vaccine (#1)COVID-19 Vaccine (#1)[facility] CenterStart: 39-40-9669Tsicyemkk for malignant neoplasm of ncoagHhuwlWkppgx27-ooevmzqnfdswqh D2 [Mass/volume] in Serum or [facility]25-hydroxyvitamin D3 [Mass/volume] in Serum or [facility]25-Hydroxyvitamin D3+25- Hydroxyvitamin D2 [Mass/volume] in Serum or [facility]ullAlbumin [Mass/volume] in Serum or [facility] Albumin [Mass/volume] in Serum or PlasmaGood Samaritan Hospital Albumin/Globulin ratioGood Samaritan HospitalAlbumin/Globulin ratio [facility] HospitalBorrelia burgdorferi Ab [Interpretation] in [facility] HospitalBorrelia burgdorferi IgG Ab [Presence] in Serum or Plasma by ImmunoassayGood Samaritan HospitalBorrelia burgdorferi IgG+IgM Ab [Presence] in Serum by ImmunoassayGood Samaritan HospitalBorrelia burgdorferi IgM Ab [Presence] in Serum or Plasma by ImmunoassayGood Samaritan HospitalCefuroxime free [Mass/volume] in Serum or PlasmaGood Samaritan HospitalComprehensive metabolic 2000 panel - Serum or PlasmaComprehensive metabolic panel Lab Routine 02/01/2024 10:15 AM [facility] [place] Work Phone: ct Abdomen and Pelvis W contrast IVCT abdomen pelvis w IV contrast Imaging Routine Bilateral lower extremity edema Pain of upper abdomen Ordered: 12/13/2024[facility] Work Phone: Comment on above:Ordered: 12/13/2024Electrophoresis: yrrel-7-ujxkohscBjiirgpibGood Samaritan HospitalElectrophoresis: jveyd-1-szmetediOaglobqkaGood Samaritan HospitalElectrophoresis: vtgxv-5-nxlmjhygDmlqmwriqGood Samaritan HospitalElectrophoresis: wuoqt-0-dnixrnhfOzwktxjadGood Samaritan HospitalElectrophoresis: beta-globulin [facility] HospitalElectrophoresis: beta-globulinGood Samaritan HospitalElectrophoresis: gamma globulinGood Samaritan HospitalElectrophoresis: gamma globulinGood Samaritan HospitalEstradiol Estradiol Lab Routine Hormone imbalance Ordered: 01/29/2025[facility] Comment on above:Ordered: 01/29/2025Estrogen [Mass/volume] in Serum or Plasma [facility]aritan HospitalFollicle stimulating hormoneFollicle stimulating hormone Lab Routine Hormone imbalance Ordered: 01/29/2025[facility] HospitalComment on above:Ordered: 01/29/2025Globulin [Mass/volume] in Serum [facility]aritan HospitalGlobulin [Mass/volume] in SerumGood Samaritan HospitalHemoglobin A1c/Hemoglobin.total in BloodHemoglobin A1c Lab Routine Hormone imbalance Ordered: 01/29/2025[facility] HospitalComment on above:Ordered: 01/29/2025Homogenous nuclear Ab pattern [Titer] in SerumGood Samaritan HospitalIron and Iron binding capacity panel - Serum or Plasma Iron and TIBC Lab Routine 02/01/2024 10:15 AM [facility] [place]Kappa light chains.free [Mass/volume] in [facility] HospitalKappa light chains.free/Lambda light chains.free [Mass Ratio] in [facility] HospitalLambda light chains.free [Mass/volume] in Serum or [facility] TrumbullLipid 1996 panel - Serum or PlasmaLipid panel Lab Routine 02/01/2024 10:15 AM [facility], [place]abethtonLuteinizing hormoneLuteinizing hormone Lab Routine Hormone imbalance Ordered: 01/29/2025[facility] HealthcareComment on above:Ordered: 01/29/2025Lutropin [Units/volume] in Serum or [facility]MR Knee - left WO [facility] CenterMR Shoulder - right WO [facility] Medical CenterNuclear Ab [Titer] in [facility] HospitalPatient EducationUc West [facility] Hospital Ctr Work Phone: Patient referralUc West Chester Hospital Ctr Work Phone: ProgesteroneProgesterone Lab Routine Hormone imbalance Ordered: 01/29/2025[facility] HealthcareComment on above:Ordered: 01/29/2025 Progesterone [Mass/volume] in Serum or [facility] Protein [Mass/volume] in Serum or [facility] TrumbullProtein [Mass/volume] in Serum or [facility] TrumbullRheumatoid factor [Units/volume] in Serum or [facility] Testosterone, free, totalTestosterone, free, total Lab Routine Hormone imbalance Ordered: 01/29/2025[facility] HealthcareComment on above:Ordered: 01/29/2025 Thyrotropin [Units/volume] in Serum or PlasmaTSH Lab Routine Hormone imbalance Ordered: 01/29/2025[facility] Healthcare Work Phone: comment on above:Ordered: 01/29/2025Thyroxine (T4) free [Mass/volume] in Serum or PlasmaT4, free Lab Routine Hormone imbalance Ordered: 01/29/2025[facility] HealthcareComment on above:Ordered: 01/29/2025US Heart TransthoracicTransthoracic echo (TTE) complete Echocardiography Routine Lower extremity edema SOB (shortness of breath) on exertion Ordered: 10/09/2024[facility] Healthcare Work Phone: Comment on above:Ordered: 10/09/2024XR Chest 2 ViewsXR chest 2 views Imaging Routine Bilateral lower extremity edema Pulmonary hypertension (HCC) Dyspnea, unspecified type Snoring Anasarca Essential hypertension History of anemia Hypoalbuminemia Hypoproteinemia (HCC) Ordered: 12/06/2024[facility] HealthcareComment on above:Ordered: 12/06/2024[facility] Immunizations Immunization DateImmunizationNotesCare QzwolatzQhtlqcxv40-28-7386vgbpjqswi B vaccine, adult dosageGregory S Awa Work Phone: [phone]-KysvoUnited Hospital 250 DO Work Phone: [phone]mdyhc B vaccine, adult dosageGregory S Awa Work Phone: [phone]-UxjplMarshall [facility] 250 DO Work Phone: [phone]skawig, mumps and rubella virus vaccine Donya S Awa Work Phone: [phone]-DkhkpMarshall Regional Medical Center 250 DO Work Phone: [phone]xupbcwfq B vaccine, adult dosageGregory S Awa Work Phone: [phone]-FltovUnited Hospital 250 DO Work Phone: [phone]tga, mumps and rubella virus vaccine Donya S Awa Work Phone: [phone]-QbeqkUnited Hospital 250 DO Work Phone: [phone]lofkjzgaf, tetanus toxoids and acellular pertussis vaccine, unspecified formulationGregory S Awa Work Phone: [phone]-GalmmMarshall Regional Medical Center 250 DO Work Phone: [phone] vaccine, inactivatedGregory S Awa Work Phone: [phone]-TwzecMarshall Regional Medical Center 250 DO Work Phone: [phone]ygnulqror, tetanus toxoids and pertussis vaccineGregory S Awa Work Phone: [phone]-KfcrxUnited Hospital 250 DO Work Phone: [phone]gougrwydi vaccine, inactivatedGregory S Awa Work Phone: WQ-GcascOwatonna Clinicy 250 DO Work Phone: [phone]hbneqzlv, tetanus toxoids and pertussis vaccineMar Lin S Awa Work Phone: PM-LtvbsUnited Hospital 250 DO Work Phone: [phone]ytmgztb, tetanus toxoids and pertussis vaccineMar Lin S Awa Work Phone: VA-MzyhvUnited Hospital 250 DO Work Phone: [phone]qnrymyhyh vaccine, inactivatedGregory S Awa Work Phone: SD-YrxaiUnited Hospital 250 DO Work Phone: [phone]sxioakqrj vaccine, inactivatedGregst. john of god hospital S Awa Work Phone: FH-NbuluUnited Hospital 250 DO Work Phone: Payers DatePayer CategoryPayerPoly [id number]-[id number] [id number] 2022Medicaid [id number] 2014Medicare [id number] 2.16.840.1.536016.3.57[id number] 2.16.840.1.849739.3.579.2.28125-95-2951Rmbfyxy0046464 2.16.840.1.174133.3.579.2.96635-02-0887Mrfkubn2132797 2.16.840.1.071458.3.579.2.29760-58-9189Cqmvqbk5073877 2.16.840.1.525813.3.579.2.76327-84-1017Yzvupsu0873068 2.16.840.1.871853.3.579.2.29048-59-9465Gqzeodp1684549 2.16.840.1.643568.3.579.2.79107-13-1372Zpglrou2786829 2..840.1.386155.3.579.2.92352-43-6702Hrzjneq0260082 2..840.1.298843.3.579.2.80007-35-4568Xptlsen9268460 2.840.1.125436.3.579.2.94726-52-8464Ekekejh63998817 2.840.1.209593.3.579.2.851546-55-4988Qnkcdct39963574 2..840.1.193493.3.579.2.051979-21-4450Ctouokn781001827 2..840.1.749226.3.579.2.47380-09-2682Qeaxsxr800201923 2.840.1.085757.3.579.2.76192-77-2702Zsnrhvm012316571 2..840.1.599953.3.579.2.15346-93-6127Pxdjwmg540479773 2..840.1.200816.3.579.2.99237-31-4708Lmeyyke137853919 2..840.1.346872.3.579.2.02404-20-4509Kywqknl17578053 2..840.1.658000.3.579.2.04550-22-5418Tjicsgl80820870 2.0.1.369883.3.579.2.52830-83-5461Dqizmsc28391508 2.840.1.859924.3.579.2.28451-10-0589Ngkesps97655613 2..1.561935.3.579.2.001582-97-3191Nxwfmgf16071458 2..1.042052.3.579.2.833391-24-0457Xkadoco69127764 2..1.045155.3.579.2.787378-73-1166Yzthyqu28269036 2..1.741583.3.579.2.745228-21-9866Ovmlyfp61510061 2..1.183291.3.579.2.843114-66-7289Ybfwxwb01176558 2..1.010229.3.579.2.717073-63-2843Ehkdmtk41626328 2..1.623179.3.579.2.704590-09-2635Ozhsofs81847606 2..1.935375.3.579.2.031241-69-7587Wgvdawo24567174 2..1.849061.3.579.2.805221-05-4954Mjzjvdu85266725 2..1.362139.3.579.2.579709-67-9838Yohjwty5201854 2..1.071751.3.579.2.687912-24-7669Mmdopjt9678084 2..1.575088.3.579.2.076073-47-9270Casdxdf7367155 2.16.840.1.651373.3.579.2.778823-35-0128Zjymbeh4529347 2.16.840.1.235373.3.579.2.081292-74-7238Xxalfzx3720099 2.16.840.1.033585.3.579.2.283291-49-0945Jduvdec712202551 2.16.840.1.682998.3.579.2.96388-41-9308Qcgtezn442484354 2.16.840.1.946813.3.579.2.65334-92-6773Nidxmvg787490189 2.16.840.1.828783.3.579.2.09949-83-3152Bfzjtca036431519 2.16.840.1.413531.3.579.2.52724-98-1815Wjbvouc689951767 2..840.1.410903.3.579.2.40534-31-8439Bcypmru043728049 2..840.1.578804.3.579.2.57950-46-6073Evfhhzu646896146 2.16.840.1.874662.3.579.2.57999-66-1699Ysbwgiv461989275 2.16.840.1.352332.3.579.2.196 [id number] 2.16.840.1.426432.19 [id number] 2.16.840.1.159640.36DoerpjoAwnhppx95353797 2.16.840.1.746659.3.579.2.332Jlfwxeu15355684 2.16.840.1.522744.3.579.2.531 Wwwzepv44983784 2.16.840.1.306003.3.579.2.437Tbcaqmi48209357 2.16.840.1.368059.3.579.2.957Hbenjmo53399628 2.16.840.1.755437.3.579.2.531 Uclgzhn86349394 2.16.840.1.449358.3.579.2.699Mjlryuf39148487 2.16.840.1.156780.3.579.2.082Lufeygt34060046 2.16.840.1.164586.3.579.2.531 Heqgpzk67459406 2.16.840.1.311200.3.579.2.002Xuqpvib08990828 2.16.840.1.591746.3.579.2.816Ugdudyr54539181 2.16.840.1.638251.3.579.2.531 Qyjwzgb59066685 2.16.840.1.458143.3.579.2.326Teuxfll42079518 2.16.840.1.340252.3.579.2.767Nkgidzo84477952 2.16.840.1.254523.3.579.2.531 Lphiylm06138403 2.16.840.1.075525.3.579.2.801Uqcsbrp84143556 2.16.840.1.185512.3.579.2.540Sjazfmu02532113 2.16.840.1.315728.3.579.2.531 Social History DateTypeDetailFacilityTobacco smoking status NHISUnknown if ever smokedUC Healthtart: 88-72-8617Zwm Assigned At BirthNot on [facility] Hospitaltart: 05-17-2023 End: 42-94-1139Stt Assigned At BirthNosaint [facility] Reveal Data Other Start: 11-19-2019 End: 94-92-1872Piiixbj smoking status NHISEx-smoker (finding)[facility]: 90-09-5523Txf Assigned At BirthFemaleFProMedica Flower Hospitaltart: 06-21-2022 End: 44-68-8775Uiajucx smoking status NHISNever smoked tobacco (finding) [facility]art: 05-17-2023 End: 25-18-5236Koqpedx smokerCurrent smoker-[facility] 250 DO Work Phone: Comment on above:marsolitario;quit 01/28/22;Tobacco smoking status NHISTobacco smoking consumption unknownMetroHealthStart: 12-20-2022 End: 68-65-3087Ekdpnqa of tobacco useCurrent smokerMetroHealth End: 19-63-7071Hkgjgqv of tobacco useCigarette SmokerMetroHealthStart: 09-02-2022 End: 25-74-7917Epjhzil use and exposureSmokeless tobacco non-userMetroHealth Start: 02-99-3231Qvtmqwc intakeCurrent non-drinker of alcohol (finding)[facility] HospitalNational Score (1-100), lower number is lower netv03FboecbaeqMedina Hospital Start: 45-60-1690Wbajtqw CommentsociallyCleveland ClinicStart: 07-22-2023 End: 89-25-3732Gifoqte smoking status NHISCurrent some day smokerSelect Medical Specialty Hospital - Cincinnatitart: 19-34-3032Faemelz smoking status NHISSmokes tobacco dailyNOMS HealthcareStart: 02-20-2024 End: 63-15-5136Xxckzvblg beverage intakeLifetime non-drinker (finding)[facility]S HealthcareStart: 95-87-0348Mntdxvn CommentPt smoked 1/2 ppd since age 17 years old.[facility] HealthcareStart: 06-19-2024 End: 60-01-0850HtjHfnool (finding)[facility] HospitalNEGATED: Highlighted rowGood Samaritan HospitalNEGATED: Highlighted row Not [facility] HospitalNEGATED: Highlighted rowGrant Hospital Goals DatePatient GoalDesired Activity/State Functional Status QygmNqqfkmzaguFpklusEoisjlow76-89-3251Axtjqex Health Questionnaire 2 item (PHQ- 2) [Reported][facility] Clinical Notes 11-12-2021 to 02-12-2025 Note Date & FdtiPukuTenxczgo71-16-6477 History of Present illness Narrative* Amanda Valerio MD - 02/12/2025 2:45 PM EDT Images from the original note were not included. Amanda Valerio MD Obstetrics and Gynecology Patient: Lupe Pickard : 1975 (49 y.o.) Exam Date: 02/12/2025 Reason for Visit - Chief Complaint Patient presents with Follow-up Follow-up following in-house ultrasound to evaluate pelvic pain and assess remaining ovary History of Present Illness History of Present Illness Lupe presents for a follow-up following an ultrasound. The patient mentions she has not been eatingwell for the past 3 months. She is experiencing symptoms consistent with perimenopause, including depression, hair loss, sleepiness, and decreased energy. The patient denies being diabetic or postmenopausal. She describes her symptoms as everything that I have, suggesting they are significantly impacting her daily life. Visit Vitals BP 122/76 (BP Location: Left arm) Wt 326 lb BMI 51.06 kg/m Smoking Status Every Day BSA 2.65 [...] No Known Allergies Current Outpatient Medications: B Brtuzua-Jctrhj-FH (Super Quints B-50) tablet, Take by mouth, Disp: , Rfl: cholecalciferol (Vitamin D-3) 50 MCG (2000 UT) capsule, Take 1 capsule (50 mcg) by mouth in the morning., Disp: 30 capsule, Rfl: 11 COLLAGEN PO, Take by mouth, Disp: , Rfl: escitalopram (Lexapro) 20 MG tablet, Take 20 mg by mouth Daily, Disp: , Rfl: ferrous sulfate 325 (65 Fe) MG tablet, Take 325 mg by mouth in the morning. Take with meals., Disp:, Rfl: HYDROcodone-acetaminophen ([place]) 5-325 MG tablet, Take 1-2 tablets by mouth every 6 (six) hours ifneeded for severe pain, Disp: 42 tablet, Rfl: 0 levothyroxine (Synthroid, Levoxyl) 125 MCG tablet, Take 1 tablet (125 mcg) by mouth Daily, Disp: 90tablet, Rfl: 3 liothyronine (Cytomel) 5 MCG tablet, Take 1 tablet (5 mcg) by mouth Daily, Disp: 90 tablet, Rfl: 3 losartan-hydroCHLOROthiazide (Hyzaar) 100-12.5 MG tablet, Take 1 [...] Morbid obesity with BMI of 40.0-44.9, adult ([facility]) Nonscarring hair loss, unspecified Postprocedural hypothyroidism Primary [...] below. Physical Exam Constitutional: Appearance: Normal appearance. HENT: Head: Normocephalic and atraumatic. Neurological: Mental Status: She is alert and oriented to person, place, and time. Psychiatric: Mood and Affect: Mood normal. Behavior: Behavior normal. US today Impression: The uterus is surgically absent. The vaginal cuff appears normal. Ovaries are not visualized. Assessment/Plan ICD-10-CM 1. Hormone imbalance E34.9 2. Pelvic pain in female R10.2 US today unremarkable Perimenopause Assessment: Patient is experiencing perimenopausal symptoms. FSH and estradiol levels are consistent with perimenopause, not postmenopause. Testosterone level is low, which may contribute to symptomssuch as depression, hair loss, sleepiness, and decreased energy. Plan: - Send information and lab results to [email or web address] for potential testosterone supplementation - [facility]) for hormonal issues - Educate patient on perimenopausal symptoms and potential treatments Elevated A1c Assessment: Recent lab results show an A1c of 6.1%, which is in the prediabetic range. Patient reports poor eating habits in the past 3 months. Patient denies being diabetic. Plan: - Send note to primary care physician (Dr. Coon) regarding elevated A1c - Educate patient on the importance of dietary changes and regular exercise - Recommend follow-up with primary care for further evaluation and management of prediabetes Assessment & Plan documented in this encounterUniversity [id number] History of Present illness Narrative* Kenyetta Dove MD - 02/12/2025 11:10 AM EDT Lupe Pickard is a 49 y.o. female No ref. provider found presents with chief complaint of Thyroid Problem and Follow-up (November) HPI: Interim History 01/2025 Follow-up visit 02/12/2025 TSH 2.49, free T4 1.02 ( 0.82-1.77), free T3 3.2 ( 2- 4.4), on levothyroxine to 125 Cytomel 5 mcg daily, ACTH stim tests on 09/2024 within normal limits 04-15-22 no AI. Interim History 07/2024 Follow-up visit 08/14/2024 TSH 6.15, on levothyroxine to 112 Cytomel 5 mcg am, also cortisol low 3.3 Interim History 02/2024: Follow-up visit 02/28/2024 TSH [...] T3 high. Currently she is on thyroid IT HELP DESK MANAGER natural 60 mcg twice a day, cut back from 90 mcg twice a day and levothyroxine 50 mcg one-half tablet twice a day. SUBJECTIVE: MEDICATIONS: Current Outpatient Medications Medication Instructions B Aqgxrqd-Rekbkb-HL (Super Quints B-50) tablet Take by mouth cholecalciferol (VITAMIN D-3) 50 mcg, Oral, Daily RT COLLAGEN PO Take by mouth escitalopram (LEXAPRO) 20 mg, Daily ferrous sulfate 325 mg, Daily with breakfast HYDROcodone-acetaminophen ([place]burn) 5-325 MG tablet 1-2 tablets, Oral, Every 6 hours PRN levothyroxine (SYNTHROID, LEVOXYL) 125 mcg, Oral, Daily [...] Take by mouth ALLERGIES: No Known Allergies Past Medical History: Diagnosis Date Acquired absence of uterus with remaining cervical stump Anxiety Bladder disorder Chronic fatigue Depression Fibromyalgia SANDRA (generalized anxiety disorder) Graves disease Hypertension Hypothyroidism (acquired) Irritable bowel syndrome with constipation 01/24/2024 Lyme disease Mixed stress and urge urinary incontinence Morbid obesity with BMI of 40.0-44.9, adult ([facility] Nonscarring hair loss, unspecified Postprocedural hypothyroidism Primary osteoarthritis involving multiple joints 01/24/2024 Urinary retention Vitamin D deficiency 01/24/2024 Past Surgical History: Procedure Laterality Date BREAST BIOPSY Left SECTION, LOW TRANSVERSE 1992, 1993, 2002, 2006 HYSTERECTOMY all except 1 ovary THYROIDECTOMY REVIEW OF SYMPTOMS: 14 POINT OF SYSTEM REVIEWED AND NEGATIVE OBJECTIVE: 11/21/2024 10:37 AM 12/06/2024 3:46 PM 12/13/2024 10:42 AM 12/20/2024 3:10 PM 01/11/2025 1:43 PM 01/29/2025 3:19 PM 02/12/2025 11:06 AM Vitals BMI 48.4 kg/m2 50.12 kg/m2 50.12 kg/m2 50.68 kg/m2 50.59 kg/m2 51.37 kg/m2 51.22 kg/m2 BSA (m2) 2.57 m2 2.62 m2 2.62 m2 2.64 m2 2.64 m2 2.65 m2 2.65 m2 Systolic 140 128 124 118 138 124 138 Diastolic 80 80 86 80 82 80 88 Heart Rate 75 90 79 79 65 85 SpO2 97 % 97 % 97 % 97 % 99 % 95 % Resp 18 Height (in) 5' 7 5' 7 5' 7 5' 7 5' 7 Weight (lb) 309 320 320 323.6 323 328 327 Visit Report Report Report Report Report Report Report Report Report Physical Exam Constitutional: Appearance: Normal appearance. She [...] all orders for this visit: Postoperative hypothyroidism - levothyroxine (Synthroid, Levoxyl) 125 MCG tablet; Take 1 tablet (125 mcg) by mouth Daily - T3, free; Future - T4, free; Future - TSH; Future We will continue with levothyroxine 125 mcg daily, Cytomel 5 mcg daily. Abnormal cortisol level ACTH stim tests within normal limits in October 16, 2024 04/15/2022 Encounter for dietary consultation, no adrenal insufficiency. Vitamin D deficiency Class 3 severe obesity due to excess calories without serious comorbidity with body mass index (BMI) of 50.0 to 59.9 in adult ([facility]) - liothyronine (Cytomel) 5 MCG tablet; Take 1 tablet (5 mcg) by mouth Daily Diet and exercise reviewed with the patient Follow up in about 1 year (around 02/12/2026). documented in this encounterUniversity [id number] Telephone encounter Note* Telephone Encounter - Amanda Valerio MD - 02/09/2025 7:31 PM EDT Vaginal symptoms University [id number] Miscellaneous Notes* Telephone Encounter - Amanda Valerio MD - 02/09/2025 7:31 PM EDT Vaginal symptoms documented in this encounterUniversity HospitalCydwjjhtmg63-54-5610 History of Present illness Narrative* Amanda Valerio MD - 01/29/2025 3:15 PM EDT Images [...] No Known Allergies Current Outpatient Medications: B Clmuonq-Pvgyce-TZ (Super Quints B-50) tablet, Take by mouth, [...] morning. Take with meals., Disp:, Rfl: HYDROcodone-acetaminophen ([place]) 5-325 MG tablet, Take 1-2 tablets by [...] Morbid obesity with BMI of 40.0-44.9, adult ([facility]) Nonscarring hair loss, unspecified Postprocedural hypothyroidism Primary [...] appointment Assessment & Plan documented in this [facility]08-25-2025 Telephone encounter Note* Telephone Encounter - Liliya Escobedo LPN - 01/21/2025 8:32 AM EDT Pt is requesting a [id number] Miscellaneous Notes* Telephone Encounter - Liliya Escobedo LPN - 01/21/2025 8:32 AM EDT Pt is requesting a refill on Hydrocodone Acetaminophen to [facility] documented in this [facility]08-15-2025 History of Present illness Narrative* Dalia Mar NP - 01/11/2025 1:30 PM EDT [...] for bathing due to her inability to business solutions analyst the shower. An x-ray conducted at the ER on 01/02/2025 did not reveal any abnormalities. She also consulted an management specialist earlier this week who performed another x- ray, which also showed no issues. The ER prescribed steroids, which provided minimal relief initially but were ineffective thereafter. The management specialist suggested a one-time steroid injection and [...] Morbid obesity with BMI of 40.0-44.9, adult ([facility]) Nonscarring hair loss, unspecified Postprocedural hypothyroidism Primary [...] MEDICATIONS: Current Outpatient Medications Medication Instructions B Ufhukyf-Scpaeu-ZE (Super Quints B-50) tablet Take by mouth [...] Continue using Tylenol as needed. - HYDROcodone-acetaminophen (Woodburn) 5-325 MG tablet; Take 1-2 tablets by mouth every 6 (six) hours if needed for severe pain for up to 7 days Dispense: 42 tablet; Refill: 0 Follow-up - MRI scheduling confirmed. documented in this encounterUniversity [id number] History of Present illness Narrative* MARIZTA Corbin - 12/20/2024 3:00 PM EDT Lupe [...] Morbid obesity with BMI of 40.0-44.9, adult ([facility]) Nonscarring hair loss, unspecified Postprocedural hypothyroidism Primary [...] MEDICATIONS: Current Outpatient Medications Medication Instructions B Lieslzk-Pqhcwt-DW (Super Quints B-50) tablet Take by mouth [...] (<1800 mg/day) and saturated fats, following the [employer] guidelines. - The use of [...] importance of probiotics and prebiotics, such as Slovenian yogurt and luis seeds, was discussed to [...] or sooner if necessary. documented in this encounterUniversity [id number] History of Present illness Narrative* Melissa Coon MD - 12/13/2024 10:45 AM EDT Images [...] has discontinued Lasix and diltiazem at the assistant to the ceo recommendation. She was prescribed Keflex, but it did not alleviate her symptoms. She was previously on Lasix 40 mg twice daily and potassium 20 mg twice daily, but these medications were discontinued by her assistant to the ceo, at [facility], who instead prescribed losartan hydrochlorothiazide. [...] stimulator surgery for her back pain at [facility]. She has hadx-rays of her back and [...] Krish Hodge MD as Referring Physician (Ophthalmology) [facility] Beny Hoskins MD as Referring Physician (Gastroenterology) [...] Yes Vision Screening: Yes, patient sees regular financial services education consultant/supervisor assembling Cognitive Screening Three Word Registration: Apple, Watch, [...] Morbid obesity with BMI of 40.0-44.9, adult ([facility]) Nonscarring hair loss, unspecified Postprocedural hypothyroidism Primary [...] MEDICATIONS: Current Outpatient Medications Medication Instructions B Edpgeiq-Gfbwwe-CC (Super Quints B-50) tablet Take by mouth [...] a sleep study scheduled for 01/2025 at [facility]. - Suspected contribution to pulmonary hypertension [...] Nerve stimulator surgery scheduled for 12/17/[address] [facility]. 5. Pulmonary hypertension -mild, on echo, [...] Agree with documentation above. documented in this encounterUniversity [id number] History of Present illness Narrative* Omid Quan NP - 12/06/2024 3:30 PM EDT Lupe Pickard is a 49 y.o. female presents with chief complaint of Edema (Office visit with Dalia on 11/21 for bilateral lower extremity edema and cellulitis rt lower extremity. She was advised by assistant to the ceo to stop Lasix and she was prescribed [...] pain. She had been using gel nail chinese on her toes, which was removed last [...] weight over the past month. Her shortness ofbreath has worsened in recent days. She has not introduced any new zses-cuf-bfyygcn vitamins or supp lements. She has been experiencing these symptoms for [...] weight gain. - Alleviating/Aggravating Factors: No new bhcl-luo-zmnmvjb vitamins or supplements; stopped taking turmeric for [...] a sleep study scheduled for 01/2025. Her assistant to the ceo diagnosed her with sleep apnea based on [...] Motrin as it causes swelling; currently taking extrastrength Tylenol. - Severity: Severe pain prompting an x-ray. Insulin Resistance Her assistant to the ceo mentioned that she is insulin resistant based [...] had her thyroid levels checked by her duck bill operator. She is taking iron supplements and [...] Morbid obesity with BMI of 40.0-44.9, adult ([facility]) Nonscarring hair loss, unspecified Postprocedural hypothyroidism Primary [...] MEDICATIONS: Current Outpatient Medications Medication Instructions B Etwvmws-Wxfqij-XT (Super Quints B-50) tablet Take by mouth [...] and potential allergic reaction to gel nail chinese. - Urinalysis will be conducted to check [...] free light chain analysis (sFLC) will be conductedto investigate hypoalbuminemia. 9. Hypoproteinemia (HCC) - Sedimentation [...] complex, cephalexin, vitamin D, collagen, Lexapro, ferrous sulfate,losartan, hydrochlorothiazide, Amitiza (as needed), Mag-Ox, propranolol. 13. Sleep apnea. - Coded as having sleep apnea by assistant to the ceo based on symptoms and echocardiogram. - Sleep study scheduled for 01/2025. Follow-up - Follow-up in [address] Coon was present in office suite today and is supervising patient care and available for consult. I'm following his plan of care for the above problems. Previous notes and plan were reviewed and followed. documented in this encounterUniversity [id number] Evaluation note* Diagnosis Onset Date Resolution Status Admit Date Acquired hypothyroidism acuteJuly 2024 9:36amAnxiety and depressionacuteJuly 2024 9:36am Chronic back painacuteJuly 2024 9:36amInsomniaacuteJuly 2024 9:36am Pulmonary hypertensionacuteJuly 2024 9:36amSleep apneaacuteJuly 2024 9:36amSleep related hypoxiaacuteJuly 2024 9:36am [facility] Work Phone: 1(875) 773-352007-03-2025 Evaluation note* Diagnosis Onset Date Resolution Status Admit Date Acquired hypothyroidism acuteJuly 2024 9:36amAnxiety and depressionacuteJuly 2024 9:36am Chronic back painacuteJuly 2024 9:36amInsomniaacuteJuly 2024 9:36am Pulmonary hypertensionacuteJuly 2024 9:36amSleep apneaacuteJuly 2024 9:36amSleep related hypoxiaacuteJuly 2024 9:36amLeg swellingacuteJuly 2024 8:57am [facility] Work Phone: 1(953) 264-921807-03-2025 Evaluation note* Diagnosis Onset Date Resolution Status Admit Date Acquired hypothyroidism acuteJuly 2024 9:36amAnxiety and depressionacuteJuly 2024 9:36am Chronic back painacuteJuly 2024 9:36amInsomniaacuteJuly 2024 9:36am Pulmonary hypertensionacuteJuly 2024 9:36amSleep apneaacuteJuly 2024 9:36amSleep related hypoxiaacuteJuly 2024 9:36amLeg swellingacuteJuly 2024 8:57amLeft knee painacuteSeptember 2024 1:50pmAcute lateral meniscus tear of left kneeacuteSeptember 2024 8:08amPrimary osteoarthritis of both kneesacuteSeptember 2024 8:08amRotator cuff syndrome of right shoulder acuteSeptember 2024 8:08am [facility] Work Phone: 1(841) 344-580607-03-2025 Evaluation note* Diagnosis Onset Date Resolution Status Admit Date Acquired hypothyroidism acuteJuly 2024 9:36amAnxiety and depressionacuteJuly 2024 9:36am Chronic back painacuteJuly 2024 9:36amInsomniaacuteJuly 2024 9:36am Pulmonary hypertensionacuteJuly 2024 9:36amSleep apneaacuteJuly 2024 9:36amSleep related hypoxiaacuteJuly 2024 9:36amLeg swellingacuteJuly 2024 8:57amLeft knee painacuteSeptember 2024 1:50pmAcute lateral meniscus tear of left kneeacuteSeptember 2024 8:08amBMI 45.0-49.9, adultacute February 08, 2025 8:08amPrimary osteoarthritis of both kneesacuteSeptember 2024 8:08amRotator cuff syndrome of right shoulderacuteSeptember 2024 8:08am [facility] Work Phone: 1(129) 261-302807-03-2025 Evaluation note* Diagnosis Onset Date Resolution Status Admit Date Acquired hypothyroidism acuteJuly 2024 9:36amAnxiety and depressionacuteJuly 2024 9:36am Chronic back painacuteJuly 2024 9:36amInsomniaacuteJuly 2024 9:36am Pulmonary hypertensionacuteJuly 2024 9:36amSleep apneaacuteJuly 2024 9:36amSleep related hypoxiaacuteJuly 2024 9:36amLeg swellingacuteJuly 2024 8:57amLeft knee painacuteSeptember 2024 1:50pmAcute lateral meniscus tear of left kneeacuteSeptember 2024 8:08amBMI 45.0-49.9, adultacute February 08, 2025 8:08amPrimary osteoarthritis of both kneesacuteSeptember 2024 8:08amRotator cuff syndrome of right shoulderacuteSeptember 2024 8:08amAcute lateral meniscus tear of left kneeacuteSeptember 2024 10:34amBMI 45.0-49.9, adultacuteSeptember 2024 10:34amPrimary osteoarthritis of both kneesacuteSeptember 2024 10:34amRotator cuff syndrome of right shoulderacuteSeptember 2024 10:34am [facility] Work Phone: 1(349) 472-354806-30-2025 NotePatient Education Urology Botulinum Toxin Bladder Injection [...] including vitamins, herbs, eye drops, creams, and blav-dsd-rrwgykb medicines. ??? Any problems you or family [...] tells you to take them. ??? Taking kpup-wiz-dzlfkor medicines, vitamins, herbs, and supplements. General instructions [...] these instructions at home: Medicines ??? Take pueo-jfx-lzcpfcc and prescription medicines only as told by your health care provider. ??? If you were prescribed an antibiotic medicine, take it as told by your health care provider. Donot stop using the antibiotic even if you start to feel better. General instructions ??? If you were given a sedative during the procedure, (more content not included)...[facility]06-25-2025 History of Present illness Narrative* Dalia Mar NP - 11/21/2024 10:15 AM EDT Images [...] She is under the care of a assistant to the ceo at [facility] and does not have a [...] Morbid obesity with BMI of 40.0-44.9, adult ([facility]) Nonscarring hair loss, unspecified Postprocedural hypothyroidism Primary [...] MEDICATIONS: Current Outpatient Medications Medication Instructions B Gvltzai-Dhgmab-RB (Super Quints B-50) tablet Take by mouth [...] with urology on Tuesday. documented in this encounterUniversity [id number] History of Present illness Narrative* Amanda Valerio MD - 10/16/2024 1:54 PM EDT yeast documented in this [facility]05-13-2025 History of Present illness Narrative* MARITZA [...] uncertain about when she can see her small craft operator. She was previously prescribed clindamycin phosphate cream [...] stump Anxiety Bladder disorder Chronic fatigue Depression ([facility]) Fibromyalgia SANDRA (generalized anxiety disorder) ([facility]) Graves disease ([facility]) Hypertension ([facility]) Hypothyroidism (acquired) ([facility]) Irritable bowel syndrome with constipation 01/24/2024 Lyme disease Mixed stress and urge urinary incontinence Morbid obesity with BMI of 40.0-44.9, adult ([facility]) Nonscarring hair loss, unspecified Postprocedural hypothyroidism ([facility]) Primary osteoarthritis involving multiple joints 01/24/2024 Urinary [...] MEDICATIONS: Current Outpatient Medications Medication Instructions B Cxayxax-Vlahyu-UA (Super Quints B-50) tablet Take by mouth [...] and renal function. - Advised to wear CHRIS hose during her flight and perform calf pumps; informed about signs of deep vein thrombosis. - After obtaining blood work she will call us when she gets home from [place] on [place]15 and if persistent we will [...] [place] She will need to follow up with dermatology. documented in this encounterUniversity [id number] Evaluation note* Diagnosis Onset Date Resolution Status Admit Date Rotator cuff syndrome of right shoulder acuteFebruary 2024 2:50pm [facility] Work Phone: 1(927) 410-297812-16-2024 Evaluation note* Diagnosis Onset Date Resolution Status Admit Date Acute bacterial sinusitis noneactiveDeceer 2023 1:54pmAcute bronchitisnoneactiveDeceer 2023 1:54pm [facility] Work Phone: 1([phone]) 991-387612-16-2024 Evaluation note* Diagnosis Onset Date Resolution Status Admit Date Acute bacterial sinusitis noneactiveDecember 2023 1:54pmAcute bronchitisnoneactiveDecember 2023 1:54pmRotator cuff syndrome of right shoulderacuteFebruary 2024 2:50pm [facility] Work Phone: 1(800) 683-102612-09-2024 Telephone encounter Note* Telephone Encounter - Cristobal Michaels - 05/07/2024 10:37 AM EST Please refill levothyroxine thank you! University [id number] Miscellaneous Notes* Telephone Encounter - Cristobal Michaels - 05/07/2024 10:37 AM EST Please refill levothyroxine thank you! documented in this encounterUniversity [id number] History of Present illness Narrative* Betty Lawrence NP - 03/07/2024 11:15 AM EDT Oral prednisone to start tomorrow. Patient has had bursa site injections when she was a patient of Dr. Billings. If the IM steroid and oral steroid does not help will schedule with Dr. Sanderson if he is agreeable. documented in this encounterUniversity [id number] History of Present illness Narrative* Eliana Ch MA - 03/07/2024 11:00 AM EDT Subjective Patient ID: Lupe Pickard (: 1975) is a 48 y.o. female who presents for No chief complaint on file.. HPI Pt presents for right hip bursitis, nurse visit only. History of Present Illness Current Outpatient Medications Medication Instructions B Pdxxsbk-Vdboeu-TJ (Super Quints B-50) tablet Oral Calcium Carb-Cholecalciferol [...] -No follow-ups on file. documented in this encounterUniversity [id number] History of Present illness Narrative* Kenyetta Dove [...] T3 high. Currently she is on thyroid IT HELP DESK MANAGER natural 60 mcg twice a day, cut back from 90 mcg twice a day and levothyroxine 50 mcg one-half tablet twice a day. SUBJECTIVE: MEDICATIONS: Current Outpatient Medications Medication Instructions B Xwdgezv-Rkyovg-AW (Super Quints B-50) tablet Oral Calcium Carb-Cholecalciferol [...] 1 year (around 02/27/2025). documented in this encounterUniversity [id number] History of Present illness Narrative* Melissa Coon MD - 01/24/2024 3:00 PM EDT Images from the original note were not included. Lupe Pickard is a 48 y.o. female presents with chief complaint of Establish Care HPI: Patient is being seen to [facility]. Former PCP was Dr. Singh, last seen approximately 2 months ago. She follows with several specialists, Dr. Ozuna, Dr. Dove, [facility], [facility] cardiology and Radha Mcintosh NP ([facility]). Patient would like to discuss [...] was previously under the care of a art coordinator, Dr. Brambila, who conducted blood tests and [...] a possible stimulator. She also sees a assistant to the ceo at [facility]. She sees Radha Mcintosh for [...] MEDICATIONS: Current Outpatient Medications Medication Instructions B Kdbzcpz-Npedcc-OO (Super Quints B-50) tablet Oral Calcium Carb-Cholecalciferol [...] (BMI) of 40.0 to 44.9 in adult ([facility]) Discussion about weight loss options. She is [...] mL; Refill: 0 15. BMI 40.0-44.9, adult ([facility]) As above. Patient was seen and examined with Dalia Mar CNP. History was confirmed and verified. Lucia elements of the exam were also completed. Assessment and plan were reviewed and addended as needed. Agree with documentation above. documented in this encounterUniversity [id number] Evaluation note* Encounter Date Diagnosis Assessment Notes Treatment Notes Treatment Clinical Notes Jun, Cough (ICD-10 - R05.9) Jun,OVID (ICD-10 - U07.1)Rest. Drink plenty of fluids. Take exwl-upi-pyjsbic Tylenol or Motrin as needed for fever or discomfort. May continue to take edfa-pmr-rrxqrzn cold and flu medicine for symptom management of your COVID as needed, but you will need to follow the instructions on the box. May take attw-hly-jnmuxwp Delsym or Robitussin for cough. Take the antibiotic amoxicillin 875 mg twice a day for the next 10 daysfor your acute strep pharyngitis. Follow-up with your [...] positive. Patient did test positive for COVID inthe office. Patient was also swabbed for strep [...] to rest, drink plenty of fluids, take hmzg-wta-wczcrjf Tylenol or Motrin as needed for fever or discomfort and may take zlqf-bca-erhrvfl cold and flu medicine for symptom management of with COVID. Patient was told she can take wzyw-pxh-tndijpv cough medicine for her cough. She is to follow-up with her primary care provider if symptoms persist or go to the ER if symptoms worsen including chest pain shortness of breath difficulty breathing pain with deep breathing. Patient is agreeable to treatment plan. Jun,Sore throat (ICD-10 - J02.9) Jun,cute streptococcal pharyngitis (ICD-10 - J02.0) [facility] Other 02-09-2024 Miscellaneous Notes* Telephone Encounter - Stephie Brambila MD - 07/08/2023 11:04 AM EST Called patient patient to discuss lab results. MARCIO panel, dsDNA, C3, C4 were normal. No major abnormalities with other labs. At this time, no signs of rheumatologic autoimmune disease. Discussed Dermatology evaluation for rash and hair loss. Stephie Brambila MD documented in this encounterMedina [facility]12-[facility]23 NoteHNO ID: [id number] Author: STEPHIE BRAMBILA MD Service: ? Author Type: Physician Type: Progress Notes Filed: 06/26/2023 14:11 Note Text: Rheumatology Clinic Date of Service: 05/24/2023 Patient: Lupe Pickard Medical Record: [id number] Last Rheumatology visit: 05/24/2023 (with Stephie Brambila) [...] uses heat/ice, massage which helps. She takes Woodburn 5mg that does not do much for [...] 10 years. 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 Family History: No known FH of autoimmune [...] CALCIUM CARBONATE (more content not included)...[facility] 05-17-2023 NoteHNO ID: [id number] Author: Stephie Brambila MD Service: ? Author Type: Physician Type: Progress Notes Filed: 05/17/2023 2:50 PM Note Text: Rheumatology Clinic Date of Service: 05/17/2023 Patient: Lupe Pickard Medical Record: [id number] Last Rheumatology visit: [facility] History of Present Illness Lupe Pickard [...] uses heat/ice, massage which helps. She takes Woodburn 5mg that does not do much for [...] 10 years. 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 Family History: No known FH of autoimmune [...] CALCIUM CARBONATE/VITAMIN (more content not included)...[facility]10-31-2023 [facility]* Encounter Date Diagnosis Assessment Notes Treatment Notes Treatment Clinical Notes Feb, Rash and nonspecific skin erupti on (ICD-10 - R21) Likely rash is related to monitor adhesive, although iron cannot be fully excluded. Stop iron. Consult prescribing physician tomorrow about iron supplementation and follow thheir plan of care. Continue with heart monitor and call assistant to the ceo office tomorrow morning for guidance as she may be reacting to adhesive and still has another 10 days. Pt received 60mg IM Kenalog in office today. Pt tolerated well. Performed by Paradise Welch CMA. Pt to take meds as prescribed -- start tomorrow. No othernsaids while on steroid. Pt to avoid contact with allergen. Avoid hot showers as it draws out rash.Pt to use topical calamine lotion or benadryl cream prn for itching. Otc benadryl prn. Pt to f/u with pcp as needed for persistent or worsening symptoms. Pt understood and agreed to treatment plan. [facility] Other 09-21-2023 Evaluation note* Encounter Date Diagnosis Assessment Notes Treatment Notes Treatment Clinical Notes Jan, Abdominal pain (ICD-10 - R10.9) Pt states her stomach feels inflammed. Jan,loating (ICD-10 - R14.0) Jan,onstipation (ICD-10 - K59.00)Pt has had constipation for a couple of years. Pt is taking Amitiza. She does not feel like she has a normal bowel movement with Amitiza. Pt is drinking about 80oz of water a day Pt advised to try low fod map diet Pt advised to try a probiotic Pt to take one metamucil gummy a day Pt to proceed with a COLON/EGD Jan,lood in stool (ICD-10 - K92.1) [facility] Other 04-06-2023 History of Present illness Narrative* [...] Risk protocol implemented: No documented in this [id number] History of Present illness Narrative* Javad Leach [...] Risk protocol implemented: No documented in this [id number] Evaluation note* Encounter Date Diagnosis Assessment Notes Treatment Notes Treatment Clinical Notes Aug, Irritable bowel syndrome with co nstipation (ICD-10 - K58.1) Start Amitiza 24mcg twice daily. Start Miralax in addition to Amitiza. Titrate dose as needed. Referral to CC for rectal manometry [facility] Other 03-01-2023 History of Present illness Narrative* [...] or earlier if the need arise [facility] [address] DO Work Phone: 1(646) 728-498402-16-2023 NoteCONSULTATION CONSULTATION DATE: 07/15/2022 HISTORY OF PRESENT ILLNESS: This is a 47-year-old female who returns to the clinic for a three month follow up for her chronic mid back pain and lower back pain. She was last seen on 04/15/2022 and, at that time, she received a referral to Dr. Bradley Leach at [facility]. She was having increased thoracic pain [...] Bradley Leach at his new location at [facility] in [place]. Refills for baclofen and tramadol at the set dose and frequency will be sent to her pharmacy. We will furnish a letter to her PCP, at the patient's request, to take over her tramadol prescription. She will be followed up in the office post procedure.[facility] [id number] Note CONSULTATION PROCEDURE DATE: 07/29/2022 PREOPERATIVE DIAGNOSIS: [...] be followed up in the office.[facility] [id number] Evaluation note* Encounter Date Diagnosis Assessment Notes Treatment Notes Treatment Clinical Notes Apr, Irritable bowel syndrome with co nstipation (ICD-10 - K58.1) Stop Amitiza Start Trualcne 3mg daily Follow up in 3-4 months [facility] Other 11-30-2022 Evaluation note* Encounter Date Diagnosis Assessment Notes Treatment Notes Treatment Clinical Notes Mar, Cough (ICD-10 - R05.9) Covid pos, flu neg, see above. Mar,OVID (ICD-10 - U07.1)Covid test pos in office today. Pt is [...] with test results and quarantine guidelines was provi ded to pt in office today. Pt was referred to PCP for chronic management. Pt understood and agreed to tx plan. Mar,ore throat (ICD-10 - J02.9)strep neg, see above. [facility] Other 11-17-2022 NoteCONSULTATION CONSULTATION DATE: 04/15/2022 HISTORY [...] send a referral to spine surgeon in [place], Dr. Bradley Leach. Patient is in agreement to this, and we will follow her up at our clinic in three months' time.[facility] [id number] NoteCONSULTATION CONSULTATION DATE: 01/06/2022 This is a [...] consultation and prefers this at [facility]. We will see the patient in three months' time unless otherwise indicated.[facility] HospitalSqyoaubq73-77-3656 NoteCONSULTATION PROCEDURE DATE: 01/06/2022 PRE AND POSTOPERATIVE [...] be followed up in the office.[facility] 11-12-2021 NoteCONSULTATION CONSULTATION DATE: 11/12/2021 HISTORY [...] Patient agrees with the plan of care. [facility] Signed and Approved by: BHAVNA MARR . 11/25/2021 16:24:00[facility] noteNo assessment information availablePromedica [facility] Work Phone: Evaluation noteNo InformationNort Reveal Data Other Evaluation note* Diagnosis Cervical spondylosis with [...] Onset Date Resolution Status Abdominal pain acute [facility] Work Phone: Evaluation note* Diagnosis Onset Date Resolution Status Rotator cuff syndrome of right shoulder acute [facility] Work Phone: Evaluation note* Diagnosis Onset Date Resolution Status Rotator cuff syndrome of right shoulder acuteSinusitis, acute maxillarynoneactiveBronchitisnonctive [facility] Work Phone: Evaluation note* Diagnosis Onset Date Resolution Status Sinusitis, acute maxillary noneactiveBronchitisnonC[facility] Work Phone: Evaluation note* Diagnosis Postoperative hypothyroidism (CMS/HCC)- Primary Postsurgical hypothyroidism Encounter for dietary consultation Vitamin D deficiency Class 3 severe obesity without serious comorbidity with body mass index (BMI) of 40.0 to 44.9 in adult, unspecified obesity type (CMS/HCC) documented in this encounter [facility] HealthcareEvaluation note* Diagnosis Bursitis of other bursa of right hip- Primary documented in this encounter [facility] HealthcareEvaluation note* Diagnosis Bursitis of other bursa of right hip documented in this encounter [facility] HealthcareEvaluation note* Diagnosis Essential hypertension (CMS/HCC)- Primary Unspecified essential hypertension Moderate major depression (CMS/HCC) Major depressive disorder, single episode, moderate SANDRA (generalized anxiety disorder) ([facility]) Generalized anxiety disorder Primary osteoarthritis involving multiple joints Fibromyalgia Unspecified myalgia and myositis Acquired hypothyroidism ([facility]) Unspecified hypothyroidism Irritable bowel syndrome with constipation [...] serious comorbidity and body mass index (BMI) of40.0 to 44.9 in adult ([facility]) BMI 40.0-44.9, adult ([facility]) documented in this encounter [facility] HealthcareEvaluation note* Diagnosis Lower extremity edema- Primary Edema SOB (shortness of breath) on exertion Shortness of breath Bilateral leg edema Edema Rosacea documented in this encounter [facility] HealthcareEvaluation note* Diagnosis Acute vaginitis- Primary Unspecified vaginitis and vulvovaginitis documented in this encounter [facility] HealthcareEvaluation note* Diagnosis Bilateral lower extremity edema- Primary Essential hypertension Unspecified essential hypertension Pulmonary hypertension (HCC) Other chronic pulmonary heart diseases Cellulitis of right lower extremity Snoring Other dyspnea and respiratory abnormality documented in this encounter [facility] HealthcareEvaluation note* Diagnosis Onset Date Resolution Status Admit Date Acquired hypothyroidism acuteJuly 2024 9:36amAnxiety and depressionacuteJuly 2024 9:36am Chronic back painacuteJuly 2024 9:36amInsomniaacuteJuly 2024 9:36am Sleep apneaacuteJuly 2024 9:36am [facility] Work Phone: Evaluation note* Diagnosis Bilateral lower [...] plasma protein metabolism documented in this encounter [facility] HealthcareEvaluation note* Diagnosis Bilateral lower extremity edema- Primary Pulmonary hypertension (HCC) Other chronic pulmonary heart diseases Dyspnea, unspecified type Essential hypertension Unspecified essential hypertension Medicare annual wellness visit, subsequent ACP (advance care planning) Other specified counseling Obstructive sleep apnea syndrome Obstructive sleep apnea (adult) (pediatric) Pain of upper abdomen documented in this encounter [facility] HealthcareEvaluation note* Diagnosis Bilateral lower extremity edema- Primary Hepatomegaly documented in this encounter [facility] HealthcareEvaluation note* Diagnosis Acute pain of left knee- Primary documented in this encounter [facility] HealthcareEvaluation note* Diagnosis Acute pain of left knee documented in this encounter [facility] HealthcareEvaluation note* Diagnosis Acute pain of left knee documented in this encounter [facility] HealthcareEvaluation note* Diagnosis Encounter for gynecological examination without abnormal finding- Primary Vaginitis and vulvovaginitis Cervicitis and endocervicitis Acute vaginitis Unspecified vaginitis and vulvovaginitis Bacterial vaginitis Unspecified vaginitis and vulvovaginitis Vaginal odor Unspecified symptom associated with female genital organs Vaginal discharge Leukorrhea, not specified as infective Vaginal irritation Pruritus of genital organs Encounter for screening for cervical cancer Hormone imbalance documented in this encounter [facility] HealthcareEvaluation note* Diagnosis Acute vaginitis- Primary Unspecified vaginitis and vulvovaginitis documented in this encounter [facility] HealthcareEvaluation note* Diagnosis Postoperative hypothyroidism- Primary Postsurgical hypothyroidism Abnormal cortisol level Encounter for dietary consultation Vitamin D deficiency Class 3 severe obesity due to excess calories without serious comorbidity with body mass index (BMI) of 50.0 to 59.9 in adult ([facility]) Encounter for gynecological examination without abnormal finding Hormone imbalance Pelvic pain in female Unspecified symptom associated with female genital organs documented in this encounter [facility] HealthcareEvaluation note* Diagnosis Hormone imbalance Pelvic pain in female Unspecified symptom associated with female genital organs documented in this encounter [facility] HealthcareHistory general Narrative - Reported* Type Description Date Medical History Fibromyalgia Medical Historyarthritis in kneesMedical Historybursitis in hipsMedical History Arthritis in lower backMedical HistoryIBSMedical HistorydepressionMedical HistoryanxietyMedical HistoryGraves diseaseMedical HistoryS/P Thyroidectomy Surgical HistoryC-section x 4Surgical HistoryhysterectomySurgical History Thyroidectomy2/2019Hospitalization HistorychildbirthHospitalization Historysee surgery [employer] Other History general Narrative - Reported* Type Description Date Medical History Fibromyalgia Medical Historyarthritis in kneesMedical Historybursitis in hipsMedical History Arthritis in lower backMedical HistoryIBSMedical HistorydepressionMedical HistoryanxietyMedical HistoryGraves diseaseMedical HistoryS/P Thyroidectomy Medical Historyhypertensive heart diseaseSurgical HistoryC-section x 4Surgical HistoryhysterectomySurgical HistoryThyroidectomy06/2018Hospitalization History childbirthHospitalization Historysee surgery [employer] Other History of Present illness Narrative* Patient [...] months or earlier if the need arise [facility] [address] DO Work Phone: History of [...] months or earlier if the need arise [facility] Work Phone: Hospital Discharge instructions Additional Instructions Follow up with your primary care doctor Continue to take your tramadol as needed for pain Return to the ED if you develop worsening symptoms [facility] Work Phone: Hospital Discharge instructions Additional [...] your primary care doctor and with your assistant to the ceo as planned.[facility] Work Phone: Hospital Discharge instructions Additional Instructions You can take Naprosyn and Tylenol as needed for your eye pain. Follow-up for your stress test and continue to take your antihypertensive medication as prescribed. Follow-up with your PCP for ongoing treatment of your high blood pressure. Follow-up with the eye doctor listed below regarding your left eye pain.[facility] Work Phone: Hospital Discharge instructions Additional [...] me in 6-8 weeks. Low FODMAP diet FusionOne 1 p.o. every morning -Notify the doctor if you have any problems. -Office number [phone] Bay Park Hospital Work Phone: Hospital Discharge instructionsAmbulatory Orders* Referral to Weight Management Time Frame: 02/21/25, Location: None [facility] Work Phone: Reason for referral (narrative)No reason for referral information availablePromedica Bay Park Hospital Work Phone: Chief Complaint and Reason [...] Z79.899 Z79.89 abd pain, constipation, blood in stool/rashReason for VisitAbdominal pain Chief Complaint chest tightness feve r cough sob Chief Complaint chest tightness feve r cough sob r79.89 d64.9 e03.9 e87.6 thoracic spondylosis Chief Complaint chest tightness feve r cough sob r79.89 d64.9 e03.9 e87.6 thoracic spondylosis rt shoulder pain Chief Complaint chest tightness feve r cough sob r79.89 d64.9 e03.9 e87.6 thoracic spondylosis rt shoulder pain CONSULT DR SINGH RT SHOULDER PAIN, XR/FRMCReason for VisitRotator cuff syndrome of right shoulder Chief Complaint rt shoulder pain CONSULT DR SINGH RT SHOULDER PAIN, XR/[facility] cough, congestionReason for VisitRotator cuff syndrome of right shoulder Sinusitis, acute maxillary Bronchitis Chief Complaint cough, congestion ScreeningReason for VisitSinusitis, acute maxillary Bronchitis Chief Complaint cough, congestion Screening G23Mgfagf for VisitSinusitis, acute maxillary Bronchitis Chief Complaint cough, congestion Screening I10 e89.0Reason for VisitSinusitis, acute maxillary Bronchitis Chief Complaint Admit Date sore throat, [...] 9:36a m m54.November 29, 2024 10:35 am Reason for Visit [...] pain January 02, 2025 11: 04am ER [facility] [place] KNEE PAIN WX January 08 11:15am [...] pain January 02, 2025 11: 04am ER [facility] LT KNEE PAIN WX January 08 11:15am [...] pain January 02, 2025 11: 04am ER [facility] [place] KNEE PAIN WX January 08 11:15am M25.562 - Pain in left knee January 08, 2025 11:18am M23.92 January 25, 2025 8: 43am MRI RESULTS [facility] January 31, 2025 1:50pm Chief Complaint Admit Date R60.0 November 21, 2024 11:2 4am E89.0 [...] pain January 02, 2025 11: 04am ER [facility] LT KNEE PAIN WX January 08 11:15am M25.562 - Pain in left knee January 08, 2025 11:18am M23.92 January 25, 2025 8: 43am MRI RESULTS [facility] January 31, 2025 1:50pm OP SP RT SHOULDER PAIN, CONSULT Septembe r 2024 8:08am Reason for Visit Admit Date Acquired hypothyroidism November 29, 2024 9 :36am Anxiety and depression November 29, 2024 9: 36am Chronic back pain November 29, 2024 9:36a m Insomnia November 29, 2024 9:36a m Pulmonary hypertension November 29, 2024 9: 36am Sleep apnea November 29, 2024 9:36a m Sleep related hypoxia November 29, 2024 9:3 6am Leg swelling December 26, 2024 8:57 am Left knee pain January 31, 2025 1:50pm Acute lateral meniscus tear of left knee February 08, 2025 8:08am Primary osteoarthritis of both knees Sep tember 2024 8:08am Rotator cuff syndrome of right shoulder February 08, 2025 8:08am Chief Complaint Admit Date R60.0 November 21, 2024 11:2 4am E89.0 [...] pain January 02, 2025 11: 04am ER [facility] LT KNEE PAIN WX January 08 11:15am M25.562 - Pain in left knee January 08, 2025 11:18am M23.92 January 25, 2025 8: 43am MRI RESULTS [facility] January 31, 2025 1:50pm OP SP RT SHOULDER PAIN, CONSULT Septembe r 2024 8:08am Screening February 11, 2025 5:30pm Reason for Visit Admit Date Acquired hypothyroidism November 29, 2024 9 :36am Anxiety and depression November 29, 2024 9: 36am Chronic back pain November 29, 2024 9:36a m Insomnia November 29, 2024 9:36a m Pulmonary hypertension November 29, 2024 9: 36am Sleep apnea November 29, 2024 9:36a m Sleep related hypoxia November 29, 2024 9:3 6am Leg swelling December 26, 2024 8:57 am Left knee pain January 31, 2025 1:50pm Acute lateral meniscus tear of left knee February 08, 2025 8:08am BMI 45.0-49.9, adult February 08 8:08am Primary osteoarthritis of both knees Sep tember 2024 8:08am Rotator cuff syndrome of right shoulder February 08, 2025 8:08am Chief Complaint Admit Date E89.0 R79.89 November 27, 2024 12:54 pm [...] pain January 02, 2025 11: 04am ER [facility] LT KNEE PAIN WX January 08 11:15am M25.562 - Pain in left knee January 08, 2025 11:18am M23.92 January 25, 2025 8: 43am MRI RESULTS [facility] January 31, 2025 1:50pm OP SP RT SHOULDER PAIN, CONSULT [facility] 2024 8:08am Screening February 11, 2025 5:30pm M75.101 February 19, 2025 8:31am Chief Complaint Admit Date E89.0 R79.89 November 27, 2024 12:54 pm [...] pain January 02, 2025 11: 04am ER [facility] LT KNEE PAIN WX January 08 11:15am M25.562 - Pain in left knee January 08, 2025 11:18am M23.92 January 25, 2025 8: 43am MRI RESULTS [facility] January 31, 2025 1:50pm OP SP RT SHOULDER PAIN, CONSULT [facility] 2024 8:08am Screening February 11, 2025 5:30pm M75.101 February 19, 2025 8:31am [facility] MRI RESULTS February 21, 2025 10:34am Reason for Visit Admit Date Acquired hypothyroidism November 29, 2024 9 :36am Anxiety and depression November 29, 2024 9: 36am Chronic back pain November 29, 2024 9:36a m Insomnia November 29, 2024 9:36a m Pulmonary hypertension November 29, 2024 9: 36am Sleep apnea November 29, 2024 9:36a m Sleep related hypoxia November 29, 2024 9:3 6am Leg swelling December 26, 2024 8:57 am Left knee pain January 31, 2025 1:50pm Acute lateral meniscus tear of left knee February 08, 2025 8:08am BMI 45.0-49.9, adult February 08 8:08am Primary osteoarthritis of both knees Sep tember 12th, 2025 8:08am Rotator cuff syndrome of right shoulder February 08, 2025 8:08am Acute lateral meniscus tear of left knee February 21, 2025 10:34am BMI 45.0-49.9, adult February 21 10:34am Primary osteoarthritis of both knees Jan 10:34am Rotator cuff syndrome of right shoulder February 21, 2025 10:34am Advance Directives No Advanced Directives Records Found Advance Directive Response Recorded Date/ Time Advance Directives No January 2:47pm Advance Directive Response Recorded Date/ Time Advance Directives No January 3:47pm Family History Relationship Condition Age at Onset Recorded Date/T neel grandparent Malignant neoplasm of breast Unknown grandparentLymphomaUnknownNo Family History Records FoundUnknown Family Member Name Dates Details Denies No pertinent family h istory: Mother, Father(V49.89, Z78.9) Status: Chief Complaint LUPE PICKARD is being seen for a 2 month follow-up of.LUPE PICKARD is being seen for echo and tress results.* 09-22-22. * LUPE PICKARD is being seen for follow-up of a hospitalization for. Reason for Referral SpecialtyDiagnoses / ProceduresReferred By ContactReferred To ContactRadiology Diagnoses Thoracic spine pain Procedures CT T-SPINE W/O CONTRAST Javad Leach MD [address] [place] [address] [facility] CT SCAN Referral IDStatAleksanderStdarwin DateExpiration DateVisits RequestedVisits [id number]/10/20234/[id number] / Procedures Referred By ContactReferred To ContactRadiology Diagnoses Cervical spondylosis with myelopathy Procedures DOWNLOAD POWERSHARE IMAGES TO Javad Leach MD [address] [place] [address] S [facility] RADI[facility]Y [address] [place] [address] Referral IDStatAleksanderStdarwin DateExpiration DateVisits RequestedVisits [id number]/28/20233/27/202411 Summary Purpose Additional Source Comments Source Comments (unrecognize d section and content) In the event this informatio n is protected by the Federal Confidentiality of Alcohol and Drug Abuse Patient Records regulations: The Federal rules restrict any use of the information to criminally investigate or prosecute any alcohol or drug abuse patient.[facility] HospitalIn the event this information is protected by the Federal Confidentiality of Alcohol and Drug Abuse Patient Records regulations: The Federal rules restrict any use of the information to criminally investigate or prosecute any alcohol or drug abuse patient.[facility] REASON FOR VISIT (unrecogniz ed section and content) ReasonCommentsNew patient, to establish relationshipBack painSpecialtyDiagnoses / ProceduresReferred By ContactReferred To ContactNeurosurgery Diagnoses Protrusion of thoracic intervertebral disc Thoracic radiculitis Ernie Roper [address] [place] [address] [facility] NEUROSURGERY [address] [place] [address] Referral IDStatusReasonStart DateExpiration DateVisits RequestedVisits [id number]/23/20232/[id number] / Procedures Referred By ContactReferred To ContactRadiology Diagnoses Thoracic spine pain Procedures CT NEURO IMAGE IMPORT(KYLE) DOWNLOAD POWERSHARE IMAGES TO Javad Leach MD [address] [place] [address] [facility] DIAGNOSTIC RADIOLOGY [address] [place] [address] [place] [address] Referral IDStatusReasonStart DateExpiration DateVisits RequestedVisits [id number]/4/20235/[id number] ProblemFollow-up ReasonCommentsBursitisReasonOnset DateCommentsMed [id number] Establish CareReasonCommentsEdemaPatient is here today with complaints of bilateral lower extremity edema x 1 month. Swelling is constant and worsens throughout the day. Rt foot pain. Intermittent SOB with exertion. Denies chest pain. Weight gain 05 25 pounds since 08/14 OVReasonCommentsbilateral leg swelling and painReasonCommentsEdemaOffice visit with Dalia on 11/21 for bilateral lower extremity edema and cellulitis rt lower extremity. She was advised by assistant to the ceo to stop Lasix and she was prescribed Losartan hydrochlorothiazide 100/12.5 mg every day. Bilateral edema and pain continue. SOB with exertion has worsened within the last couple days.ReasonCommentsReview labReview lab drawn 12/07/2024Medicare Annual Wellness Visit SubsequentReason Comments2 Week Follow UpBilateral extremity edema continues. Weight gain of 3.6 # since 12/13 OV. Appoint[address] scheduled with Dr Redding 12/26/2024Reason CommentsKnee PainReasonOnset DateCommentsMed Nusvvw2201/21/2025ReasonComments Vaginitis/Bacterial VaginosisReasonCommentsThyroid ProblemFollow-upJULY LAB ReasonCommentsFollow-up Care Teams (unrecognized sec tion and content) Team Status: Inactive Member Role Status Dates Donya Billings , DO Primary Care Provider Active Bhavna Marr NP-Doroteo ProviderActive Team Status: Active Member Role Status Dates Donya Billings , DO Primary Care Provider Active Team Status: Inactive Member Role Status Dates Donya Billings , DO Primary Care Provider Active Xiomara Fragoso ProviderActive Team Status: Inactive Member Role Status Dates Donya Billings , DO Primary Care Provider Active Steve Coronel DOEmergency ProviderActive Team Status: Inactive Member Role Status Dates Donya Billings , DO Primary Care Provider Active Xiomara Pate ProviderActive Team Status: Inactive Member Role Status Dates Donya Billings , DO Primary Care Provider Active Javad Brent Garces ProviderActive Team Status: Active Member Role Status Dates PHYSICIAN NO FAMILY Primary Care Provider Active Team Status: Inactive Member Role Status Dates Amanda Valerio MD Attending Provider Active PHYSICIAN NO FAMILYPrimary Care ProviderActive Team Status: Inactive Member Role Status Dates Donya Billings , DO Primary Care Provider Active Yogi Michaels DONeelamrdylan ProviderActive Team Status: Inactive Member Role Status Dates PHYSICIAN NO FAMILY Primary Care Provider Active Kristi Horta ProviderActive Team Status: Active Member Role Status Dates Melissa Singh II, DO Primary Care Provider Active Team Status: Inactive Member Role Status Dates Melissa Singh II, DO Primary Care Provider Active Kamla Arringtonrgenyumiko ProviderActive Team Status: Inactive Member Role Status Dates Melissa Singh II, DO Primary Care Provider Active Franklyn Herman MDAttnayana ProviderActivePhillip Benjamin MDOther ProviderActive Team Status: Inactive Member Role Status Dates Melissa Singh II, DO Primary Care Provider Active Darlene Cintron ProviderActive Team Status: Inactive Member Role Status Dates Melissa Singh II, DO Primary Care Provider Active Xiomara Pate ProviderActive Team Status: Inactive Member Role Status Dates Melissa Singh II, DO Primary Care Provider, Other P rovider Active Radha Mcintosh IT HELP DESK MANAGER-CAttending ProviderActive Team Status: Inactive Member Role Status Dates Melissa Singh II, DO Primary Care Provider Active Beny Hoskins MDAttnayana ProviderActiveZoya Aguirre APRN IT HELP DESK MANAGER-COther ProviderActiveTeam MemberRelationshipSpecialtyStart DateEnd Date Donya Billings, DO [facility]11/22/22 Team Status: Inactive Member Role Status Dates Melissa Singh II, DO Primary Care Provider Active Start: July 22, 2023 End: July 22nicola Jarrett , DOEmergency ProviderActiveStart: July 22, 2023 End: July 22, 2023 Team Status: Inactive Member Role Status Dates Melissa Singh II, DO Primary Care Pro vider, Attending Provider Active Start: July 28, 2023 End: July 28, 2023 Team Status: Inactive Member Role Status Dates Melissa Singh II, DO Primary Care Provider Active Start: August 16, 2023 End: August 15vamshi Dominguez IT HELP DESK MANAGER-CAttending ProviderActiveStart: August 16, 2023 End: August 16, 2023 Team Status: Inactive Member Role Status Dates Melissa Singh II, DO Primary Care Provider Active Start: September 20, 2023 End: September 20, 2023Gabriele Woodson ProviderActiveStart: September 20, 2023 End: September 20, 2023 Team Status: Inactive Member Role Status Dates Melissa Singh II, DO Primary Care Provider Active Start: October 03, 2023 End: October 03, 2023Chaz Carrillo DOAttending ProviderActiveStart: October 03, 2023 End: October 03, 2023 Team Status: Inactive Member Role Status Dates Melissa Singh II, DO Primary Care Provider Active Start: December 05, 2023 End: December 04sara Lomas APRNAtortiz ProviderActiveStart: December 05, 2023 End: December 05, 2023 Team Status: Inactive Member Role Status Dates Melissa Singh II, DO Primary Care Provider Active Start: January 20, 2024 End: January 19eferral SelfAttending ProviderActiveStart: January 20, 2024 End: January 20, 2024 Team Status: Active Member Role Status Dates Melissa Coon MD Primary Care Provider Active Team Status: Inactive Member Role Status Dates Melissa Coon MD Primary Care Provider Active St art: February 01, 2024 End: February 01, 2024Dalia Mar IT HELP DESK MANAGER-CAttending ProviderActiveStart: February 01, 2024 End: February 01, 2024 Team Status: Inactive Member Role Status Dates Melissa Coon MD Primary Care Provider Active St art: February 21, 2024 End: February 20hmad SHERRI Dovettnayana ProviderActiveStart: February 21, 2024 End: February 21, 2024Team MemberRelationshipSpecialtyStart DateEnd Date Melissa Coon MD [address] [place] [address] PCP - GeneralInternal Medicine01/24/24Team MemberRelationshipSpecialtyStart Date End Date Melissa Coon MD [address] [place] [address] PCP - GeneralInternal Medicine01/24/24am MemberRelationshipSpecialtyStart Date End Date Melissa Coon MD [address] [place] [address] PCP - GeneralInternal Medicine01/24/24Team MemberRelationshipSpecialtyStart Date End Date Melissa Coon MD [address] [place] [address] PCP - GeneralInternal Medicine01/24/24Team MemberRelationshipSpecialtyStart Date End Date Melissa Coon MD [address] [place] [address] PCP - GeneralInternal Medicine01/24/24Team MemberRelationshipSpecialtyStart Date End Date Melissa Coon MD [address] [place] [address] PCP - GeneralInternal Medicine01/24/24Team MemberRelationshipSpecialtyStart Date End Date Melissa Coon MD [address] [place] [address] PCP - GeneralInternal Medicine01/24/24 Team Status: Inactive Member Role Status Pina Coon MD Primary Care Provider Active St art: May 14, 2024 End: May 14Zaida Vazquez ProviderActiveStart: May 14, 2024 End: May 14, 2024 Team Status: Inactive Member Role Status Pina Coon MD Primary Care Provider Active St art: June 18, 2024 End: June 18ndnato Jensen MDAttending ProviderActiveStart: June 18, 2024 End: June 18, 2024 Team Status: Inactive Member Role Status Pina Coon MD Primary Care Provider Active St art: July 19, 2024 End: July 19, 2024Chaz Carrillo DOAttnayana ProviderActiveStart: July 19, 2024 End: July 19, 2024 Team Status: Active Member Role Status Pina Coon MD Primary Care Provider Active St art: July 14, 2024 Swapnil Matute DOAttending ProviderActiveStart: July 14, 2024 Team Status: Inactive Member Role Status Pina Coon MD Primary Care Provide r, Attending Provider Active Start: August 03, 2024 End: August 03, 2024 Team Status: Active Member Role Status Pina Coon MD Primary Care Provider Active St art: August 06, 2024 Chaz Carrillo DOAttending ProviderActiveStart: August 06, 2024 Team Status: Inactive Member Role Status Pina Coon MD Primary Care Provider Active St art: August 29, 2024 End: August 29hmad Xiomara Dove ProviderActiveStart: August 29, 2024 End: August 29, 2024Team MemberRelationshipSpecialtyStart DateEnd Melissa Augustine MD [address] [place] [address] PCP - GeneralInternal Medicine01/24/24 Kenyetta Dove MD [address] [place] [address] Referring PhysicianEndocrinology08/01/24 Donya Ozuna MD [address] [place] [address] Referring PhysicianUrology08/01/24 Amanda Valerio MD [address] [place] [address] Obstetrics and Gynecology08/01/24 Krish Hodge MD [address] [place] [address] Referring PhysicianOphthalmology08/01/24 Beny Hoskins MD [address] [place] [address] [address] [place] [address] Referring PhysicianGastroenterology08/01/24 [facility] 08/01/24 Team Status: Active Member Role Status Dates Melissa Coon MD Primary Care Provider Active St art: September 03, 2024 Louie Sherman ProviderActiveStart: September 03, 2024 Team Status: Inactive Member Role Status Dates Melissa Coon MD Primary Care Provider Active St art: October 09, 2024 End: October 09, 2024SuMARITZA Barajas-[facility]ac[facility] ProviderActiveStart: October 09, 2024 End: October 09, 2024Team MemberRelationshipSpecialtyStart DateEnd Date Melissa Coon MD [address] [place] [address] PCP - GeneralInternal Medicine01/24/24 Kenyetta Dove MD [address] [place] [address] Referring PhysicianEndocrinology08/01/24 Donya Ozuna MD [address] [place] [address] Referring PhysicianUrology08/01/24 Amanda Valerio MD [address] [place] [id number] Obstetrics and Gynecology08/01/24 Krish Hodge MD [address] [place] [address] Referring PhysicianOphthalmology08/01/24 Beny Hoskins MD [address] [place] [address] [address] [place] [address] Referring PhysicianGastroenterology08/01/24 [facility] 08/01/24 Team Status: Inactive Member Role Status Dates Melissa Coon MD Primary Care Provider Active St art: October 25, 2024 End: October 25hmBranden Pollackending Provider, Referring Provider ActiveStart: October 25, 2024 End: October 25, 2024Team MemberRelationshipSpecialtyStart DateEnd Melissa Coon MD [address] [place] [address] PCP - GeneralInternal Medicine01/24/24 Kenyetta Dove MD [address] [place] [address] Referring PhysicianEndocrinology08/01/24 Donya Ozuna MD [address] [place] [address] Referring PhysicianUrology08/01/24 Amanda Valerio MD [address] [place] [address] Obstetrics and Gynecology08/01/24 Krish Hodge MD [address] [place] [address] Referring PhysicianOphthalmology08/01/24 Beny Hoskins MD [address] [place] [address] [address] [place] [address] Referring PhysicianGastroenterology08/01/24 [facility] 08/01/24 Team Status: Inactive Member Role Status Pina Coon MD Primary Care Provider Active St art: October 25, 2024 End: October 25hmjimena Dove MDAttnayana ProviderActiveStart: October 25, 2024 End: October 25MANA Benedicteferring ProviderActiveStart: October 25, 2024 End: October 25, 2024 Team Status: Inactive Member Role Status Pina Coon MD Primary Care Provider Active St art: November 09, 2024 End: November 09, 2024SuMARITZA Barajas-CAttending ProviderActiveStart: November 09, 2024 End: November 09, 2024 Team Status: Inactive Member Role Status Pina Coon MD Primary Care Provider Active St art: November 21, 2024 End: November 21, 2024Dalia Mar NP-CAttending ProviderActiveStart: November 21, 2024 End: November 21, 2024 Team Status: Inactive Member Role Status Pina Coon MD Primary Care Provider Active St art: September 03, 2024 End: September 03, 2024Louie Sherman ProviderActiveStart: September 03, 2024 End: September 03, 2024 Team Status: Inactive Member Role Status Pina Coon MD Primary Care Provider Active St art: November 27, 2024 End: November 27hmad Xiomara Dove ProviderActiveStart: November 27, 2024 End: November 27, 2024 Team Status: Inactive Member Role Status Pina Coon MD Primary Care Provider Active St art: November 29, 2024 End: November 29, 2024DaXiomara Stern ProviderActiveStart: November 29, 2024 End: November 29, 2024 Team Status: Inactive Member Role Status Pina Coon MD Primary Care Provider Active St art: November 29, 2024 End: November 29, 2024Ginbrent Mar IT HELP DESK MANAGER-CAttending ProviderActiveStart: November 29, 2024 End: November 29, 2024Team MemberRelationshipSpecialtyStart DateEnd Melissa Augustine MD [address] [place] [address] PCP - GeneralInternal Medicine01/24/24 Kenyetta Dove MD [address] [place] [address] Referring PhysicianEndocrinology08/01/24 Donay Ozuna MD [address] [place] [address] Referring PhysicianUrology08/01/24 Amanda Valerio MD [address] [place] [address] Obstetrics and Gynecology08/01/24 Krish Hodge MD [address] [place] [address] Referring PhysicianOphthalmology08/01/24 Beny Hoskins MD [address] [place] [address] [address] [place] [address] Referring PhysicianGastroenterology08/01/24 [facility] 08/01/24Team MemberRelationshipSpecialtyWendell [facility] Melissa Coon MD [address] [place] [address] PCP - GeneralInternal Medicine01/24/24 Kenyetta Dove MD [address] [facility] [place] [address] Referring PhysicianEndocrinology08/01/24 Donya Ozuna MD [address] [place] [address] Referring PhysicianUrology08/01/24 Amanda Valerio MD [address] [place] [address] Obstetrics and Gynecology08/01/24 Krish Hodge MD [address] [place] [address] Referring PhysicianOphthalmology08/01/24 Beny Hoskins MD [address] [place] [address] [address] [place] [address] Referring PhysicianGastroenterology08/01/24 [facility] 08/01/24Team MemberRelationshipSpecialtyCastle [facility] Melissa Coon MD [address] [place] [address] PCP - GeneralInternal Medicine01/24/24 Kenyetta Dove MD [address] [place] [address] Referring PhysicianEndocrinology08/01/24 Donya Ozuna MD [address] [place] [address] Referring PhysicianUrology08/01/24 Amanda Valerio MD [address] [place] [address] Obstetrics and Gynecology08/01/24 Krish Hodge MD [address] [place] [address] Referring PhysicianOphthalmology08/01/24 Beny Hoskins MD [address] [place] [address] [address] [place] [address] Referring PhysicianGastroenterology08/01/24 [facility] 08/01/24 Team Status: Inactive Member Role Status Dates Melissa Coon MD Primary Care Provider Active St art: December 07, 2024 End: December 07, 2024Omid Quan RN MSN ANP-CAttending ProviderActive Start: December 07, 2024 End: December 07, 2024 Team Status: Inactive Member Role Status Dates Melissa Coon MD Primary Care Provider Active St art: December 18, 2024 End: December 18, 2024Dajake Dale MDAttending ProviderActiveStart: December 18, 2024 End: December 18, 2024Team MemberRelationshipSpecialtyStart DateEnd Date Melissa Coon MD [address] [place] [address] PCP - GeneralInternal Medicine01/24/24 Kenyetta Dove MD [address] [place] [address] Referring PhysicianEndocrinology08/01/24 Donya Ozuna MD [address] [place] [place] [address] Referring PhysicianUrology08/01/24 Amanda Valerio MD [address] [place] [address] Obstetrics and Gynecology08/01/24 Krish Hodge MD [address] [place] [address] Referring PhysicianOphthalmology08/01/24 Beny Hoskins MD [address] [place] [address] [address] [place] [address] Referring PhysicianGastroenterology08/01/24 [facility] 08/01/24 Team Status: Inactive Member Role Status Dates Melissa Coon MD Primary Care Provider Active St art: December 18, 2024 End: December 18, 2024DaXiomara Stern ProviderActiveStart: December 18, 2024 End: December 18, 2024Dalia Mar NP-CReferring ProviderActiveStart: December 18, 2024 End: December 18, 2024 Team Status: Active Member Role Status Dates Melissa Coon MD Primary Care Provider Active St art: December 25, 2024 Xiomara Costello ProviderActiveStart: December 25, 2024 Robbie Dale MDOther ProviderActiveStart: December 25, 2024 Dalia Mar NP-CReferring ProviderActiveStart: December 25, 2024 Team Status: Inactive Member Role Status Dates Melissa Coon MD Primary Care Provider Active St art: December 26, 2024 End: December 26, 2024MaXiomara Marte ProviderActiveStart: December 26, 2024 End: December 26, 2024 Team Status: Inactive Member Role Status Dates Melissa Coon MD Primary Care Provider Active St art: January 02, 2025 End: January 02, 2025Gabriele Woodson ProviderActiveStart: January 02, 2025 End: January 02, 2025 Team Status: Inactive Member Role Status Dates Melissa Coon MD Primary Care Provider Active St art: January 08, 2025 End: January 08, 2025RobXiomara Guido II ProviderActiveStart: January 08, 2025 End: January 08, 2025Team MemberRelationshipSpecialtyStart DateEnd Date Melissa Coon MD [address] [place] [phone] PCP - GeneralInternal Medicine01/24/24 Kenyetta Dove MD [address] [place] [address] Referring PhysicianEndocrinology08/01/24 Donya Ozuna MD [address] [place] [address] Referring PhysicianUrology08/01/24 Amanda Valerio MD [address] [place] [address] Obstetrics and Gynecology08/01/24 Krish Hodge MD [address] [place] [address] Referring PhysicianOphthalmology08/01/24 Beny Hoskins MD [address] [place] [address] [address] [place] [address] Referring PhysicianGastroenterology08/01/24 [facility] 08/01/24Team MemberRelationshipSpecialtyStart DateEnd Date Melissa Coon MD [address] [place] [address] PCP - GeneralInternal Medicine01/24/24 Kenyetta Dove MD [address] [place] [place] [address] Referring PhysicianEndocrinology08/01/24 Donya Ozuna MD [address] [place] [address] Referring PhysicianUrology08/01/24 Amanda Valerio MD [address] [place] [address] Obstetrics and Gynecology08/01/24 Krish Hodge MD [address] [place] [address] Referring PhysicianOphthalmology08/01/24 Beny Hoskins MD [address] [place] [address] [address] [place] [address] Referring PhysicianGastroenterology08/01/24 [facility] 08/01/24 Team Status: Inactive Member Role Status Dates Melissa Coon MD Primary Care Provider Active St art: January 25, 2025 End: January 25, 2025RobXiomara Guido II ProviderActiveStart: January 25, 2025 End: January 25, 2025 Team Status: Inactive Member Role Status Dates Melissa Coon MD Primary Care Provider Active St art: January 31, 2025 End: January 31, 2025RobXiomara Guido II ProviderActiveStart: January 31, 2025 End: January 31, 2025Team MemberRelationshipSpecialtyStart DateEnd Date Melissa Coon MD [address] [place] [address] PCP - GeneralInternal Medicine01/24/24 Kenyetta Dove MD [address] [place] [address] Referring PhysicianEndocrinology08/01/24 Donya Ozuna MD [address] [place] [address] Referring PhysicianUrology08/01/24 Amanda Valerio MD [address] [place] [address] Obstetrics and Gynecology08/01/24 Krish Hodge MD [address] [place] [address] Referring PhysicianOphthalmology08/01/24 Beny Hoskins MD [address] [place] [address] [address] [place] [address] Referring PhysicianGastroenterology08/01/24 [facility] 08/01/24 Team Status: Inactive Member Role Status Dates Melissa Coon MD Primary Care Provider Active St art: February 08, 2025 End: February 08, 2025Chaz Carrillo DOAttnayana ProviderActiveStart: February 08, 2025 End: February 08, 2025Team MemberRelationshipSpecialtyStart DateEnd Date Melissa Coon MD [address] [place] [address] PCP - GeneralInternal Medicine01/24/24 Kenyetta Dove MD [address] [place] [address] Referring PhysicianEndocrinology08/01/24 Donya Ozuna MD [address] [place] [phone] Referring PhysicianUrology08/01/24 Amanda Valerio MD [address] [place] [phone] Obstetrics and Gynecology08/01/24 Krish Hodge MD [address] [place] [address] Referring PhysicianOphthalmology08/01/24 Beny Hoskins MD [address] [place] [address] [address] [place] [address] Referring PhysicianGastroenterology08/01/24 [facility] 08/01/24 Team Status: Inactive Member Role Status Dates Referral Self Attending Provider Active Start: Andriy carrillo 2024 End: February 11, 2025Robert Patrice Coon Care ProviderActiveStart: February 11, 2025 End: February 11, 2025Team MemberRelationshipSpecialtyStart DateEnd Date Melissa Coon MD [address] [place] [address] PCP - GeneralInternal Medicine01/24/24 Kenyetta Dove MD [address] [place] [address] Referring PhysicianEndocrinology08/01/24 Donya Ozuna MD [address] [place] [place] [address] Referring PhysicianUrology08/01/24 Amanda Valerio MD [address] [place] [address] Obstetrics and Gynecology08/01/24 Krish Hodge MD [address] [place] [address] Referring PhysicianOphthalmology08/01/24 Beny Hoskins MD [address] [place] [address] [address] [place] [address] Referring PhysicianGastroenterology08/01/24 [facility] 08/01/24 Team Status: Inactive Member Role Status Dates Melissa Coon MD Primary Care Provider Active St art: February 19, 2025 End: February 19, 2025Louie Sherman ProviderActiveStart: February 19, 2025 End: February 19, 2025 Team Status: Inactive Member Role Status Dates Melissa Coon MD Primary Care Provider Active St art: February 21, 2025 End: February 21, 2025Louie Sherman ProviderActiveStart: February 21, 2025 End: February 21, 2025 Goals (unrecognized section and content) Goals may be documented in a n alternate section INFORMATION SOURCE (unrecogn ized section and content) DATE CREATED AUTHOR 10/04/2022 [facility] [facility] DATE CREATED AUTHOR AUTHOR'S ORGANIZ ATION 10/11/2022 [facility] DATE CREATED AUTHOR AUTHOR'S ORGANIZ ATION 11/27/2022 [facility] DATE CREATED AUTHOR AUTHOR'S ORGANIZ ATION 12/09/2022 [facility] DATE CREATED AUTHOR AUTHOR'S ORGANIZ ATION 12/09/2022 [facility] DATE CREATED AUTHOR AUTHOR'S ORGANIZ ATION 07/10/2023 [facility] DATE CREATED AUTHOR AUTHOR'S ORGANIZ ATION 01/10/2025 [facility] DATE CREATED AUTHOR AUTHOR'S ORGANIZ ATION 02/13/2025 [facility] DATE CREATED AUTHOR AUTHOR'S ORGANIZ ATION 03/02/2025 [facility] DATE CREATED AUTHOR AUTHOR'S ORGANIZ ATION 03/16/2025 [facility] FOR RECORDS PERTAINING TO PATIENTS WHO [...] ON THE PRIMARY CLINICAL RECORDS. [facility]. provides no warranty or guarantee of the accuracy or completeness of information in this document.
--- OUTSIDE RECORDS SUMMARY | 2025-04-01 06:45 | XMS_ITS | Clinical Summary ---
Author Organization [facility] Address [address] [place] [address] Phone Care Team Providers Care Vacuum Drier Operator Name Role Phone Simón Davidson Primary Care Provider + Medications MedicationSigDispense QuantityRefillsLast FilledStart DateEnd DateStatus ALPRAZolam (Xanax) 1 mg tablet Take 0.5 tablets (0.5 mg) by mouth as needed at bedtime.08/24/2017Active baclofen (Lioresal) 10 mg tablet Take 1 tablet (10 mg) by mouth 2 times a day.03/14/2017Active cholecalciferol (Vitamin D-3) 50,000 unit capsule Take 1 capsule (50,000 Units) by mouth 1 (one) time per week.12/04/2015Active levothyroxine (Tirosint) 112 mcg capsule Take 1 capsule (112 mcg) by mouth once daily.Active linaCLOtide (Linzess) 145 mcg capsule Take 1 capsule (145 mcg) by mouth once daily in the morning. Take before meals. Do not crush or chew.Active liothyronine (Cytomel) 5 mcg tablet Take 1 tablet (5 mcg) by mouth 2 times a day.Active magnesium oxide (Mag-Ox) 400 mg tablet Take 1 tablet (400 mg) by mouth 2 times a day.Active melatonin 10 mg tablet Take 1 tablet (10 mg) by mouth once daily at bedtime.Active metoprolol succinate XL (Toprol-XL) 50 mg 24 hr tablet Take 1 tablet (50 mg) by mouth once daily. Do not crush or chew.Active calcium carbonate-vitamin D3 (Oyster Shell Calcium-Vit D3) 500 mg-5 mcg (200 unit) tablet Take 1 tablet by mouth once daily.Active traMADol ER (Ultram-ER) 100 mg 24 hr tablet Take 1 tablet (100 mg) by mouth 2 times a day. Do not crush, chew, or split. Active Active Problems ProblemNoted DateDiagnosed DateAnomalous optic nerve04/19/2023Hypertropia of right eye04/19/2023Vertical bxrbdevu40/21/4623Ceggwna24/21/2023trial uyqtjymxlan86/21/2023hest pain04/19/20233572Knglnarlgnrkps53/21/2023alpitations 04/19/2023VC (premature ventricular contraction)04/19/2023Shortness of breath 04/19/2023Vitamin D /21/2023 Family History Medical HistoryRelationNameCommentsNo Known ProblemsFatherNo Known Problems MotherRelationNameStatusCommentsFatherMother Social History Tobacco UseTypesPacks/DayYears UsedDateSmoking Tobacco: FormerCigarettes Tobacco Cessation:Counseling Given: Not Answered Alcohol UseStandard Drinks/WeekCommentsYes0 (1 standard drink = 0.6 oz pure alcohol)sociallyCommentsUnknownSex and Gender InformationValueDate RecordedSex Assigned at BirthNot on fileLegal DkhFvzujc60/26/2022 12:23 AM EST Gender IdentityNot on fileSexual OrientationNot on file Last Filed Vital Signs Vital SignReadingTime TakenCommentsBlood Aqjiqadd613/8007 8:50 AM EDT Fymxo5470/12/2023 8:50 AM EDTTemperature--Respiratory Rate--Oxygen Saturation-- Inhaled Oxygen Concentration--Tqepds294 kg (270 lb)12/08/2022 8:50 AM EDTHeight 170.2 cm (5' 7 )12/08/2022 8:50 AM EDTBody Mass Index42.29012/08/2022 8:50 AM EDT Plan of Treatment Health MaintenanceDue DateLast DoneCommentsCT Rnpkqkmrixsv1977Colonoscopy 1977Colorectal Cancer Gclwailgt1977FIT-DNA (Cologuard)1977FIT 1977HIV Knhvwcfli1977Lipid Panel1977Medicare Annual Wellness Visit (AWV)1977 5282Sxmzteftvufqz1977TSH Level1977MMR Vaccines (1 of 1 - Standard series)1978Hepatitis C Jfmmhpcsw37/11/1995Hepatitis B Vaccines (1 of 3 - 19+ 3-dose series)1996Cervical Cancer Screening 1998HPV/Pqsrio5304/09/1998Pap Smear1998DTaP/Tdap/Td Vaccines (1 - Tdap)04/09/19996434Shlqnnkjp18/11/2017Influenza Vaccine (#1)2024OVID-19 Vaccine (1 - 2024- season)2025Zoster Vaccines (1 of 2)2027HIB VaccinesAged OutNo longer eligible based on patient's age to complete this topic HPV VaccinesAged OutNo longer eligible based on patient's age to complete this topicHepatitis A VaccinesAged OutNo longer eligible based on patient's age to complete this topicIPV VaccinesAged OutNo longer eligible based on patient's age to complete this topicMeningococcal VaccineAged OutNo longer eligible based on patient's age to complete this topicPneumococcal Vaccine: Pediatrics and At-Risk Adult PatientsAged OutNo longer eligible based on patient's age to complete this topicRotavirus VaccinesAged OutNo longer eligible based on patient's age to complete this topic Insurance Care Teams Team MemberRelationshipSpecialtyStart DateEnd Date Simón Davidson DO [address] [place] [address] [facility] - General10/21/17
[2025-04-01 06:48] VITALS: BP 161/98; PULSE 88; TEMP 36.4; O2SAT 99
[2025-04-01] MEDS: 0.9 % SODIUM CHLORIDE 500 ML IV (06:56)
[2025-04-01] MEDS: BUPIVACAINE HCL 0.25% PF 25 MG/10 ML VIAL 2 ML INJ (07:44)
[2025-04-01] MEDS: DEXAMETHASONE SOD PHOS 10 MG/ML VIAL INJ (07:45)
[2025-04-01] MEDS: LIDOCAINE HCL 2% 400 MG/20 ML MDV 6 ML INJ (07:45)
--- NOTE | 2025-04-01 07:56 | P.ON_ITS ---
Date of procedure: 04/01/25 Pre-op diagnosis: Pain due to thoracic spondylosis without myelopathy Post-op diagnosis: same as pre-op Procedure: Procedure: Bilateral T7-8, 9-10 radiofrequency ablation Medications: Bupivacaine 0.25% 2cc, dexamethasone 10mg, lidocaine 2% 10cc The patient was seen and examined in the preoperative holding area.? The site was marked.? Written informed consent was obtained and placed on the chart.? The patient was brought to the medical procedure unit and placed in the prone position.? A timeout was completed verifying correct patient, procedure, positioning, and special requirements.? The skin overlying the target points, the designated medial branch, were prepped and draped in the usual sterile fashion.? The target point was achieved with a 20-gauge 15 cm with a 10 mm curved active tip radiofrequency cannula under direct fluoroscopic visual ization.? The needle was inserted at level T7 on the right side. Needle tip position was confirmed with lateral fluoroscopic position.? Motor stimulation was carried out at 2 Hz up to 5 volts with the absence of extremity activity.? This was repeated at level 8, 9, 10 on right side.?? Sensory stimulation was carried out.? Concordant pain was realized at the above- mentioned sites.? Then radiofrequency lesioning was carried out times 90 seconds at 80 degrees times 2 lesions at each level.? The radiofrequency probe was removed prior to cannula removal.? The above-mentioned injectate was placed in 1 mL increments.? The needle was removed. The same procedure, with the same steps, was then completed on the left side at the same levels. Insertion sites were covered.? The patient was taken to the postoperative recovery area and monitored for an appropriate length of time before being found suitable for discharge in the company of a responsible adult. Anesthesia: MAC Surgeon: Willian Jensen Pathology: none sent Condition: stable Disposition: no change
[2025-04-01 07:59] VITALS: BP 107/70; PULSE 78; TEMP 36.3; O2SAT 98
[2025-04-01 08:01] VITALS: BP 104/70; PULSE 79; TEMP 36.3; O2SAT 98
== END 2025-04-01 08:22 | disposition home or self-care (01) ==
PROVIDERS: Visit Provider Anesthesiology
DX: M47.814 Spondylosis without myelopathy or radiculopathy, thoracic region (principal)
CPT/HCPCS: 64633; 64634; J0665; J1100; J2704

== ENCOUNTER 2025-05-02 13:39 | Outpatient (OUT) | payer MEDICARE, SELFPAY ==
--- OUTSIDE RECORDS SUMMARY | 2024-05-01 08:45 | XMS_ITS ---
Author Organization [facility] Address [address] [place] [address] Care Team Providers Care Newspaper Editor Name Role Phone Radha Mcintosh Primary Care Provider KaufmanTemiGissell Unavailable [phone] REASON FOR VISIT 3 month f/u Encounters Encounter Location Date Provider Diagnosis [facility] [address] [place] [address] 05/01/2024 Radha Mcintosh Plan Of Treatment Next Appt Details Provider Name:Gissell Kaufman , 07/04/2025 02:20:00 PM, [address], [place], [address], Progress Notes * HERNAN TORIBIOB:1975 ([age] yo F)Acc No.[id number]:05/01/2024 Behavioral Health Patient: Brent NICOLE EMILY :?Radha McintoshDOB:1975???Age:49 Y???Sex:Female Date:05/01/2024hone:[phone]:[address] [place], [id number] Subjective: * Chief Complaints: * 3 month f/u * Electronic signature of MARIBEL Hobbs on 05/02/2025 at 01:43 PM ESTSign off status: Pending * Provider: Kaiden Mcintosh Date: 07/02/2023 Generated for Printing/Faxing/eTransmitting on:?05/02/2025 01:43 PM EST
--- OUTSIDE RECORDS SUMMARY | 2024-07-10 09:45 | XMS_ITS ---
Author Organization [facility] Servic es Address [address] [place] [address] Care Team Providers Care Material Flow Engineer Name Role Phone Radha Mcintosh Primary Care Provider [phone] MandeepTemiGissell Unavailable [phone] Dr. Bob Ureña Unavailable [phone] REASON FOR VISIT FILLING Encounters Encounter Location Date Provider Diagnosis [facility] Services [address] [place] [address] 07/10/2024 Bob Ureña Plan Of Treatment Next Appt Details Provider Name:Gissell Kaufman , 07/04/2025 02:20:00 PM, [address], [place], [address], Progress Notes * STEFANIEGalen HERNANB:1975 ([age] yo F)Acc No.[id number]:07/10/2024 Patient:?EMILY TORIBIO :?Bob Ureña DDSDOB:1975???Age:49 Y???Sex: FemaleDate:07/10/2024Phone:[phone]:[address], [address] [id number]:Radha Mcintosh Subjective: * Chief Complaints: * F ILLING Billing Information: * Procedure Codes: * Electronic signature of Dr. Bob Ureña , [facility], [id number] on 05/02/2025 at 01:44 PM ESTSign off status: Pending * Provider: Hugo Ureña DDS Date: 0 07/10/2024 Generated for Printing/Faxing/eTransmitting on:?05/02/2025 01:44 PM EST
--- OUTSIDE RECORDS SUMMARY | 2024-07-17 09:00 | XMS_ITS ---
Author Organization [facility] Servic es Address [address] [place] [address] Care Team Providers Care Director Of Pediatric Rehabilitation Name Role Phone Radha Mcintosh Primary Care Provider MandeepTemiGissell Unavailable [phone] Dr. Bob Ureña Unavailable [phone] REASON FOR VISIT FILLING Encounters Encounter Location Date Provider Diagnosis [facility] [address] [place] [address] 07/17/2024 Bob Ureña Plan Of Treatment Next Appt Details Provider Name:Gissell Kaufman , 07/04/2025 02:20:00 PM, [address], [place], [address], Progress Notes * STEFANIEGalen HERNANB:1975 ([age] yo F)Acc No.[id number]:07/17/2024 Patient:?EMILY TORIBIO :?Bob Ureña DDSDOB:1975???Age:49 Y???Sex: FemaleDate:07/17/2024Phone:[phone]:[address], [address] [place] [id number]:Radha Mcintosh Subjective: * Chief Complaints: * F ILLING Billing Information: * Procedure Codes: * Electronic signature of Dr. Bob Ureña , [facility], [id number] on 05/02/2025 at 01:44 PM ESTSign off status: Pending * Provider: Hugo Ureña DDS Date: 0 07/17/2024 Generated for Printing/Faxing/eTransmitting on:?05/02/2025 01:44 PM EST
--- OUTSIDE RECORDS SUMMARY | 2024-09-28 05:30 | XMS_ITS ---
Author Organization [facility] Address [address] [place] [address] Care Team Providers Care Product Support Engineer Name Role Phone Radha Mcintosh Primary Care Provider MandeepTemiGissell Unavailable [phone] Dr. Bob Ureña Unavailable [phone] REASON FOR VISIT fill Encounters Encounter Location Date Provider Diagnosis [facility] [address] [place] [address] 09/28/2024 Bob Ureña Plan Of Treatment Next Appt Details Provider Name:Gissell Kaufman , 07/04/2025 02:20:00 PM, [address], [place], [address], Progress Notes * STEFANIEGalen HERNANB:1975 ([age] yo F)Acc No.[id number]:09/28/2024 Patient:?EMILY TORIBIO :?Bob Ureña DDSDOB:1975???Age:49 Y???Sex: FemaleDate:09/28/2024Phone:[phone]:[address] [id number]:Radha Mcintosh Subjective: * Chief Complaints: * F ill Billing Information: * Procedure Codes: * Electronic signature of Dr. Bob Ureña , [facility], [id number] on 05/02/2025 at 01:44 PM ESTSign off status: Pending * Provider: Hugo Ureña DDS Date: 0 09/28/2024 Generated for Printing/Faxing/eTransmitting on:?05/02/2025 01:44 PM EST
--- OUTSIDE RECORDS SUMMARY | 2024-10-08 09:45 | XMS_ITS ---
Author Organization [facility] Address [address] [place] [address] Care Team Providers Care Skiving Machine Operator Name Role Phone Radha Mcintosh Primary Care Provider Temi Kaufmanrina Unavailable [phone] REASON FOR VISIT 3 month f/u Encounters Encounter Location Date Provider Diagnosis [facility] [address] [place] [address] 10/08/2024 Radha Mcintosh Plan Of Treatment Next Appt Details Provider Name:Gissell Kaufman , 07/04/2025 02:20:00 PM, [address], [place], [address], Progress Notes * HERNAN TORIBIOB:1975 ([age] yo F)Acc No.[id number]:10/08/2024 Behavioral Health Patient: Brent NICOLE EMILY :?Radha McintoshDOB:1975???Age:49 Y???Sex:Female Date:10/08/2024Phone:[phone]:[address], [id number] Subjective: * Chief Complaints: * 3 month f/u * Electronic signature of MARIBEL Hobbs on 05/02/2025 at 01:44 PM ESTSign off status: Pending * Provider: Kaiden Mcintosh Date: 0 10/08/2024 Generated for Printing/Faxing/eTransmitting on:?05/02/2025 01:44 PM EST
--- OUTSIDE RECORDS SUMMARY | 2025-02-21 05:35 | XMS_ITS ---
Author Organization [facility] Servic es Address [address] [place] [address] Care Team Providers Care Cutting And Creasing Press Operator Name Role Phone Radha Mcintosh Primary Care Provider Gissell Kaufman Unavailable [phone] Dr. Bob Ureña Unavailable [phone] REASON FOR VISIT FILLING #17- $100 DUE TODAY SFS LVL 2 Encounters Encounter Location Date Provider Diagnosis [facility] [address] [place] [address] 2024 Bob Ureña Plan Of Treatment Next Appt Details Provider Name:Gissell Kaufman , 07/04/2025 02:20:00 PM, [address], [place], [address], Progress Notes * STEFANIEGalenHERNANB:1975 ([age] yo F)Acc No.[id number]:02/21/2025 Patient:?EMILY TORIBIO :?Bob Ureña DDSDOB:1975???Age:49 Y???Sex: FemaleDate:02/21/2025Phone:[phone]:[address], [address], [place], [id number]:Radha Mcintosh Subjective: * Chief Complaints: * F ILLING #17- $100 DUE TODAY SFS LVL 2 * Electronic signature of Dr. Bob Ureña , DMD, [id number] on 05/02/2025 at 01:44 PM ESTSign off status: Pending * Provider: Hugo Ureña DDS Date: 0 02/21/2025 Generated for Printing/Faxing/eTransmitting on:?05/02/2025 01:44 PM EST
--- OUTSIDE RECORDS SUMMARY | 2025-04-30 05:55 | XMS_ITS | Continuity of Care Document ---
Author Organization [facility] Address [address] [place] [address] Phone Care Team Providers Care Resource Specialist Teacher Name Role Phone Diony Sharma MD Primary Care Provider Diony Benz II, MD Attending Provider Chaz Carrillo DO Attending Provider Self, Referral Attending Provider Unavailable Care Teams Patient Care Team Team Status: Active Member Role/Relationship Status Dates Diony Sharma MD Primary Care Provider Active Visit Care Team Team Status: Inactive Member Role/Relationship Status Dates Diony Sharma MD Primary Care Provider Active St art: January 31, 2025 End: January 31, 2025Xiomara Taylor II ProviderActiveStart: January 31, 2025 End: January 31, 2025 Visit Care Team Team Status: Inactive Member Role/Relationship Status Dates Diony Sharma MD Primary Care Provider Active St art: February 08, 2025 End: February 08, 2025Chaz Carrillo DOAttnayana ProviderActiveStart: February 08, 2025 End: February 08, 2025 Visit Care Team Team Status: Inactive Member Role/Relationship Status Dates Referral Self Attending Provider Active Start: S arjuntembjohn 2024 End: February 11, 2025Patrice Mendoza Care ProviderActiveStart: February 11, 2025 End: February 11, 2025 Visit Care Team Team Status: Inactive Member Role/Relationship Status Dates Diony Sharma MD Primary Care Provider Active St art: February 19, 2025 End: February 19, 2025Louie Sherman ProviderActiveStart: February 19, 2025 End: February 19, 2025 Visit Care Team Team Status: Inactive Member Role/Relationship Status Dates Diony Sharma MD Primary Care Provider Active St art: February 21, 2025 End: February 21, 2025Louie Sherman ProviderActiveStart: February 21, 2025 End: February 21, 2025 Patient Care Team Team Status: Inactive Member Role/Relationship Status Dates Diony Sharma MD Primary Care Provider Active St art: April 30, 2025 End: April 30, 2025Louie Sherman ProviderActiveStart: April 30, 2025 End: April 30, 2025 Chief Complaint and Reason for Visit Chief Complaint Admit Date MRI RESULTS [facility] January 31, 2025 1:50pm OP SP RT SHOULDER PAIN, CONSULT [facility] 2024 8:08am Screening February 11, 2025 5:30pm M75.101 February 19, 2025 8:31am [facility] MRI RESULTS February 21, 2025 10:34am 10 WEEKS April 30, 2025 1 0:14am Reason for Visit Admit Date Left knee pain January 31, 2025 1:50pm Acute lateral meniscus tear of left knee February 08, 2025 8:08am BMI 45.0-49.9, adult February 08 8:08am Primary osteoarthritis of both knees Jan 8:08am Rotator cuff syndrome of right shoulder February 08, 2025 8:08am Acute lateral meniscus tear of left knee February 21, 2025 10:34am BMI 45.0-49.9, adult February 21 10:34am Primary osteoarthritis of both knees Sep 2024 10:34am Rotator cuff syndrome of right shoulder February 21, 2025 10:34am Acute lateral meniscus tear of left knee April 30, 2025 10:14am BMI 45.0-49.9, adult April 30, 2025 10:14am Primary osteoarthritis of both knees Dec emb2024 10:14am Rotator cuff syndrome of right shoulder April 30, 2025 10:14am Reason for Referral Type Reason(s) Provider Provider Contact Information P ezequiel Address Start Date Body mass index (BMI) of 45.0 to 49.9 in adult Left knee pain Z68.42 - Body mass index [BMI] 45.0-49.9, adult,M25.562 - Pain in left knee Z68.42 - Body mass index [BMI] 45.0-49.9, adult,M25.562 - Pain in left knee [place] [id number] [facility] [id number] [address]24 Allergies, Adverse Reactions, Alerts Allergen Type Severity Reaction Last Updated Verified Status No Known Allergies Allergy Unknown February 21, 2025 10:03amYesActive Social History Smoking Status Status Start Date End Date Date of Observa tion Ex-smoker (finding) January 02, 2025 12:30pm Observation Status Observation Response Date of Response Legal Sex Female (finding) [facility] 1974 Family History Relationship Condition Age at Onset Recorded Date/T neel grandparent Malignant neoplasm of breast Unknown grandparentLymphomaUnknown Problems Active Problems Problem Diagnosis/Recorded Date Onset Date Stat us Cat bite of finger December 02, 2018 1:48pm Unknown Active Antral gastritis October 03, 2023 10:49am Unknown Ac tive Sleep related hypoxia November 29, 2024 9:27am Unknown Active Insomnia November 29, 2024 9:25am Unknown Active Sprain of left knee October 03, 2023 10:49am Unknown Active Sprain of right knee October 03, 2023 10:49am Unknown Active Rotator cuff syndrome of right shoulder October 03, 2023 10:59am Unknown Active Primary osteoarthritis of right hip October 03, 2023 10:4 9am Unknown Active Sacroiliitis October 03, 2023 10:49am Unknown Active Primary osteoarthritis of both knees October 03, 2023 10: 49am Unknown Active Graves disease October 03, 2023 10:49am Unknown Acti ve Acquired hypothyroidism November 29, 2024 9:17am Unknown Active Sleep apnea November 29, 2024 9:17am Unknown Active Acute lateral meniscus tear of left knee February 08, 2025 8:03am Unknown Active Heart palpitations November 05, 2022 9:32pm Unknown Active Light-headed September 20, 2022 7:36pm Unknown Acti ve Chronic pain October 03, 2023 10:49am Unknown Active Shoulder pain November 19, 2019 5:38pm Unknown Acti ve Pulmonary hypertension November 29, 2024 11:22am Unknown Active Leg swelling December 26, 2024 12:09pm Unknown Acti ve Flank pain June 21, 2022 11:54am Unknown A ctive Lumbosacral spondylosis October 03, 2023 10:49am Unknown Active Macromastia October 03, 2023 10:49am Unknown Active Phlebitis December 15, 2018 4:44pm Unknown Activ e Thoracic degenerative disc disease October 03, 2023 10:49 am Unknown Active Lumbar degenerative disc disease October 03, 2023 10:49am Unknown Active Bloating October 03, 2023 10:49am Unknown Active BMI 45.0-49.9, adult February 08, 2025 8:07am Unkno wn Active Chest tightness November 05, 2022 9:32pm Unknown Act cecelia H/O: hysterectomy October 03, 2023 10:49am Unknown A ctive S/P thyroidectomy October 03, 2023 10:49am Unknown A ctive Previous section October 03, 2023 10:49am Unknow n Active Anxiety and depression November 29, 2024 9:18am Unknown Active Chronic back pain November 29, 2024 9:17am Unknown A ctive Left knee pain January 07, 2025 12:43pm Unknown Active Edema, peripheral November 19, 2019 5:38pm Unknown Active Dehiscence of surgical wound December 02, 2018 1:48pm Unk nown Active Abdominal pain March 29, 2023 8:11am Unknown Active Irritable bowel syndrome wit h constipation October 03, 2023 10:49am Unknown Active Constipation October 03, 2023 10:49am Unknown Active Hypertensive heart disease October 03, 2023 10:49am Unkno wn Active Hypomagnesemia November 05, 2022 9:32pm Unknown Acti ve Inactive/Resolved Problems Problem Diagnosis/Recorded Date Onset Date Stat us Hypertensive urgency December 30, 2022 10:38pm Unknown Resolved Knee sprain January 02, 2025 11:29am Unknown Res olved Shortness of breath January 24, 2023 10:04am Unknown Resolved Heart palpitations January 24, 2023 10:04am Unknown Resolved Eye pain January 24, 2023 10:04am Unknown Re solved Calf pain January 24, 2023 10:04am Unknown Re solved Headache December 30, 2022 10:38pm Unknown Res olved Chest pressure December 30, 2022 10:38pm Unknown R esolved Hypertension December 20, 2022 3:02pm Unknown Resol kaitlynn Hypertension January 24, 2023 10:04am Unknown Re solved Influenza July 22, 2023 10:57am Unknown Resolved Arthralgia of right shoulder region September 20, 2023 1 1:35am Unknown Resolved Medications Medication Status Dose Units Route Directions Qty Days Refills S tart Date Stop Date End Date Reason(s) Instructions Adherence Temazepam (Restoril) 15 mg Capsule Discontinued 30 MG PO Daily at bedtim e as needed for Insomnia October 20, 2017 11:00pmApril 2022 6:24pmMethimazole (Tapazole) 5 mg Tablet Qtrztdsbhiaq97MSTApwqdk Tuesday, Tuesday, and 2017 11:00pm[facility] 2:16pmGrave's DiseaseBupropion Hcl 300 mg Tablet Extended Release 24 KuJrflissgsnax866MRVEGfpeq morningOctober 20, 2017 11:00pmApril 2022 6:23pm DepressionAmitriptyline 25 mg ZoujpwMfcxpkkrgdrw33TJXRCinxtziXknpttij 2017 12:00amApril 2022 6:23pmDepressionOmeprazole 20 mg Capsule,Delayed Release(Dr/Ec)Lftfcmxeiiyf7MSWPYLuvneLsyikebc 2017 12:00amMarc 2018 2:16pmGastritisMultivitamin (Multiple Vitamins) YjcwggYnpjzq9YNUERZqaqpBmqmegsw 2018 12:00amSupplementUnknownAscorbic Acid (Vitamin C) (Vitamin C) 1,000 mg OhiluuQbgdcqqdldrz3260AKCKZbvey morningFebruary 2018 12:00amApril 2022 6:23pmSupplementAlprazolam 1 mg tabletDiscontinued0.5MGPODaily as needed for AnxietyFebruary 2018 12:00amApril 2022 6:22pmMeloxicam 15 mg oihdwcPbeinqmevevx88XOUVLeron morningFebruary 2018 12:00amMarch 2018 2:16pmJoint painBiotin 10,000 mcg HksoxalGnznaigiyywm73578FIYLHTveqjUouqhmek 2018 12:00amApril 2022 6:23pmSupplementMagnesium 200 mg TabletActive 400MGPOTwice dailyFebruary 2018 12:00amSupplementUnknownCalcium Carbonate- Vitamin D3 (Os-Nirmal 500 + D3) 500 mg(1,250mg) -200 unit tnxcgySlbiruqsmsov9JSYZU Twice dailyFebruary 2018 12:00amApril 2022 6:23pmSupplementMelatonin 10 mg NyrfixZhewvy06TWOWXibdh at bedtimeFebruary 2018 12:00amSleepUnknown Methimazole 10 mg pfxixpHrrricnalmbm2PHFPpfmfe Tuesday, , Tuesday, and TuesdayFebruary 2018 12:00amMarc 2018 2:16pmCholecalciferol (Vitamin D3) 50,000 unit imlebuiGggarm99474UNKBHGiakmd weekFebruary 2018 12:00am SupplementUnknownLevothyroxine 137 mcg dedbudKkwlmhuhdwin397EAVUYQoenwDpdw 2018 11:00pmDecember 2023 2:09pmClonidine Hcl 0.1 mg tabletDiscontinued 0.1MGPODaily as needed for hypertensive fsacfjyuh57Ixcs 2022 3:03pmOctober 2022 7:37amHydrocodone-Acetaminophen 5-325 mg OzhcjwNdboxvwdrivg2IQAEO Twice daily as needed for PainOctober 2022 11:00pmDecember 2023 2:08pmDiltiazem Hcl 240 mg capsule,extended release 41ouKbjcnr814FPADCtikz March 28, 2023 11:00pmUnknownAspirin 81 mg Tablet,FoxeumbbUaypeohcjqdt85JFBO DailyOctober 2022 11:00pmJuly 2023 10:41amEscitalopram Oxalate (Lexapro) 5 mg IupwnbBjexvnfqtfgy06UINCHrxdjIxvxsfw 2022 11:00pmDecember 2023 2:08pmNaproxen (Naprosyn) 500 mg pdgurlYudtmdqsslui086OBHENkuax daily 200April 2023 11:00pmMay 2023 5:35amOxycodone-Acetaminophen (Percocet) 5-325 mg loyilmIjnclpnyszhs2WAPATZutcb times daily as needed for pain 720April 2023July 2023 10:42amArthralgia of right shoulder region Pain in right shoulderMupirocin 2 % thzmjufxHfqrdmonjiqh9SSHDCOTBBAWOJSwlar edqfg6422Cigi 2018 11:00pmJuly 2018 4:08pmIbuprofen 800 mg tablet Ukaudsxcvdby957EMDSK2V as needed for hdjq738Fvon 2018 11:00pmApril 2022 6:23pmAlprazolam 0.5 mg tabletDiscontinued0.5MGPOAs Directed as needed for AnxietyApril 2022 11:00pmOctober 2022 7:34amstated that she takes as needed, maybe once every couple of days.Liothyronine 5 mcg YentmkPagznenbtsko02 MCGPODailyApril 2022 11:00pmDecember 2023 2:12pmtakes 10mg daily Tramadol 50 mg zeljxyNtsoxzcknaif484KHSKVmoin dailyApril 2022 11:00pm March 29, 2023 7:37amAcetaminophen 500 mg JjrcqhHmgxnu3337RVHOQjkwy daily September 19, 2022 11:00pmUnknownBaclofen 10 mg dkuwpoFgdalkoymumq35UAYDUnmtxGumrn 2022 11:00pmFebruary 2023 10:38amMetoprolol Tartrate 25 mg tablet Digbhfhlcnjq11RGMUFzxtqRxfgh 2022 11:00pmOctober 2022 7:37am Lubiprostone 24 mcg XvqvqtdKsgotbjxwnuy15PIXTMRgwjkGrylu 2022 11:00pm May 14, 2024 2:12pmLiothyronine 5 mcg sdbkxeWttzgx7YZYSJJjcbwPuucwlki 2023 2:09pmUnknownLubiprostone 24 mcg rkqbypkNcxrws80BGJTSIxgis as needed May 14, 2024 2:10pmUnknownPropranolol 20 mg gthntiPcqpte75RJZJFoilg daily July 22, 2023 12:00amUnknownOseltamivir (Tamiflu) 75 mg capsule Rrbrshlsyovw19MOUXV18G3167Znzvicef 2023 12:00amApril 2023 10:31am Prednisone 20 mg qigppzAtccln81KCMLPabhs871Kdznfv 2024 11:00pmadminister with food or milkUnknownNaproxen (Naprosyn) 500 mg dsrrhrNervtyjrhxoa362VMOW Twice ptosk659Jfo2023 5:31amJuly 2023 10:42amEscitalopram Oxalate (Lexapro) 20 mg upthkpUdedlz66OUUUQuealBipnlgcw 2023 12:00amUnknown Levothyroxine 112 mcg xhlexflEnpllm433IWFSGXxxryVtkcedtc 2023 12:00am UnknownFerrous Sulfate 325 mg (65 mg iron) ajozkqRvhnep639OTELOpqhpCvewbqjw 2023 12:00amUnknownturmericActivePODecember 2023 12:00amUnknown L.acid,gas,rg,rham-B.ani-cran (up4 Probiotics Women's)ActivePODecember 2023 12:00amUnknownMethylprednisolone (Medrol (Jeffery)) 4 mg tablets,dose pack Jwuheexvmmav7TAezj package prfaltpozj176Czzrbusf 16th, 2024 12:00amMay 2024 7:11amPO PER PKG DIR for 6 daysDoxycycline Hyclate 100 mg capsule Qmezltkkpojf214FFRKYwvkp jndcs7937Vgpvmcfu2023 12:00amJuly 2024 8:52amwith foodBenzonatate 200 mg clpxaulGmitzjnrxplb605HMQRToizt times daily as needed for zrkfs880Ndzapieh 2023 12:00amJuly 2024 8:52amFurosemide 40 mg nqwocxJjqnta59VYANGgzqj dailyJuly 2024 11:00pmUnknownMetronidazole 0.75 % bflTjkikb8ZIFBALVNJDPLHTrffg dailyJuly 2024 11:00pmUnknownnystatin ActiveTOPICALJuly 2024 11:00pmUnknownpotassium chlorideActivePOJuly 2024 11:00pmUnknownvitamin B complexActivePOJuly 2024 11:00pmUnknown Temazepam 30 mg wdoyuqvJdmlts32DCJPXyguj at bedtime as needed for salfq768Togg 2024 11:00pmInsomnia Insomnia, unspecifieduse if needed night of sleep studyUnknownMethylprednisolone (Medrol (Jeffery)) 4 mg tablets,dose ybjtZbuvalggruks1CBwzj package uzcfdekhij618 December 04, 2023 11:00pmDecember 2023 2:09pmPO PER PKG DIR for 6 days Amoxicillin-Pot Clavulanate 875-125 mg eozlosQrebocetsagc9NPAOEDkznh ndugs80527 December 04, 2023 11:00pmDecember 2023 2:08pmGuaifenesin 600 mg tablet extended release 38rzJupqlrcnkdka691CYCDMcfhd dcrpx744QnwmDecember 04, 2023 11:00pmJuly 2024 8:52amAlbuterol Sulfate 90 mcg/actuation HFA aerosol inhaler Orxaoznnhlps9XSFEKQRLMBVNJZjvyn 4 hours as needed for shortness of breath or wheezing6.70ly 2023 11:00pmDecember 2023 2:07pmMeloxicam 15 mg bxwpuoTezvbr17ARJYCakgs10914Burmyqie 2024 12:00amComplies with drug therapy Procedures Procedure Date Performed Status MM screening mammo BI w/CAD February 11, 2025 4:32pm completed MR shoulder RT wo con February 19, 2025 7:32a m completed Relevant Diagnostic Tests and/or Laboratory Data Diagnostic Imaging Reports Author Larry Perez [facility] HospitalAuthoredSeptember 2024 9:28amReport Dictated Date/TimeDictated ByStatusRadiology ReportSeptember 2024 9:28am Larry Perez [facility] [address] [place] [address] Mammography Report Signed Patient: Lupe Pickard MR#: [id number] : 1975 Acct:[id number] Age/Sex: 49 / F Adm Date: 5 Loc: [place] Room: Type: [facility] Attending Dr: Referral Self Ordering Provider: SELF,REFERRAL Date of Service: 02/11/25 Procedure(s): MM screening mammo BI w/CAD Accession Number(s): ([id number]) MM/MM screening mammo BI w/CAD: SCREENING Copies to: Diony Sharma MD SELF,REFERRAL ~ CLINICAL DATA: Screening for malignancy. SCREENING MAMMOGRAM - FULL FIELD DIGITAL WITH TOMOSYNTHESIS AND CAD COMPARISON:Priors dating back to 2020 Tomosynthesis craniocaudal and mediolateral oblique views of both breasts were obtained using low-dose digital technique. This examination was reviewed with [...] Perez M.D. 02/12/2025 9:55 AM Dictation Location: [facility]01 Dictated By: Larry Perez MD 02/12/25927 Signed By: <Electronically signed by Larry Perez MD in OV> 02/12/25954 Author Bob Neff [facility] HospitalAuthoredSeptember 2024 12:40pmReport Dictated Date/TimeDictated ByStatusRadiology ReportSeptember 2024 12:40pm Bob Neff Jr [facility] [address] [place] [address] MRI Report Signed Patient: Lupe Pickard MR#: [id number] : 1975 Acct:[id number] Age/Sex: 49 / F ADM Date: 5 Loc: [facility] Room: Type: [facility] CLI Attending Dr: Chaz Carrillo DO Copies to: [...] BURSITIS. Impression dictated by: Bob Neff Jr., D.O. 02/19/2025 12:48 PM Dictation Location: [place] [address] Transcribed By: BOB 02/19/25 1248 Dictated By: Bob Neff Jr, DO 02/19/25 1240 Signed By: <Electronically signed by Bob Neff Jr, DO in OV> 02/19/25 1248 Vital Signs Vital Reading Result Reference Range Collection Date/Time BP Systolic 126 mm[Hg] 100-140 January 31, 2025 1:08pm BP Diastolic 66 mm[Hg] 60-100 January 31, 2025 1:08pm Height 67 [in_i] February 21, 2025 10:83eeIthqzj031.00 kgSept2024 10:03amBMI (Body Mass Index)46.9 kg/n5Tdvfthluo2024 10:03am Advance Directives Advance Directive Response Recorded Date/ Time Advance Directives No January 2:47pm Insurance Providers Guarantor Loren Samaniego Address [address] [facility] [address]Home Phone: Payer Group Member ID Coverage Type Subscriber Relationship to Subscriber Effective Date Expiration Date Medicaid [id number] Alley , M Id: [id number] [address] [facility] [address] Home Phone: Email: [email or web address] [email or web address] Centered[facility]are [id number] Noblecharlene Loren Id: [id number] [address] [place] [address] Home Phone: Email: [email or web address] Encounters Encounter Location(s) Arrival/Admit Date Discharge/Departure Date Discharge/Departure Disposition Provider(s) Departed Physician/ Provider Office Visit -[facility] January 31, 2025 1:50pm January 31, 2025 2:46pm Discharged to home care or self care (routine discharge) Loren Mauro MD Departed Physician/ Provider Office Visit -[facility] February 08, 2025 8:08am February 08, 2025 9:05am Discharged to home care or self care (routine discharge) Chaz Carrillo DO [facility]ed [facility] February 11, 2025 5:30pm February 11, 2025 5:31pm Discharged to home care or self care (routine discharge) REFERRAL SELF Departed Clinical -[facility] [address] Closed February 19, 2025 8:31am February 19, 2025 8:32am Discharged to home care or self care (routine discharge) Chaz Carrillo DO Departed Physician/ Provider Office Visit [facility] February 21, 2025 10:34am February 21, 2025 11:23am Discharged to home care or self care (routine discharge) Chaz Carrillo DO Departed Physician/ Provider Office Visit -[facility] April 30, 2025 10:14am April 30, 2025 10:44am Discharged to home care or self care (routine discharge) Chaz Carrillo DO Recent Diagnosis Onset Date Admit Date Left knee pain Unknown January 31 1:50pm Acute lateral meniscus tear of left knee Unknown February 08, 2025 8:08am BMI 45.0-49.9, adult Unknown January 282024 8:08am Primary osteoarthritis of both knees Unknown February 08, 2025 8:08am Rotator cuff syndrome of right shoulder Unknown February 08, 2025 8:08am Acute lateral meniscus tear of left knee Unknown February 21, 2025 10:34am BMI 45.0-49.9, adult Unknown January 292024 10:34am Primary osteoarthritis of both knees Unknown February 21, 2025 10:34am Rotator cuff syndrome of right shoulder Unknown February 21, 2025 10:34am Acute lateral meniscus tear of left knee Unknown April 30, 2025 10:14am BMI 45.0-49.9, adult Unknown April 10:14am Primary osteoarthritis of both knees Unknown April 30, 2025 10:14am Rotator cuff syndrome of right shoulder Unknown April 30, 2025 10:14am Assessments Diagnosis Onset Date Resolution Status Admit Date Left knee pain acuteSept2024 1:50pmAcute lateral meniscus tear of left kneeacute February 08, 2025 8:08amBMI 45.0-49.9, adultacuteSept2024 8:08am Primary osteoarthritis of both kneesacuteSept2024 8:08amRotator cuff syndrome of right shoulderacuteJan2024 8:08amAcute lateral meniscus tear of left kneeacuteSept2024 10:34amBMI 45.0-49.9, adult acutept2024 10:34amPrimary osteoarthritis of both kneesacute February 21, 2025 10:34amRotator cuff syndrome of right shoulderacute February 21, 2025 10:34amAcute lateral meniscus tear of left kneeacute April 30, 2025 10:14amBMI 45.0-49.9, adultacuteDecember 2024 10:14am Primary osteoarthritis of both kneesacuteDece2024 10:14amRotator cuff syndrome of right shoulderacutece2024 10:14am Plan of Treatment Author Bro [facility]2024 8:17amPhysical examination of the right shoulder was performed today. Patient is not improving as expected with time and conservative treatment. An MRI will be necessary to assess for an injury that could require surgical treatment. Patient will follow up after MRI. Images and pain etiology were discussed with the patient. Many of the symptoms are coming from arthritis in the knee. Treatment modalities were discussed including conservative treatment in the form of oral anti-inflammatories, corticosteroid injection, hyaluronic injection, or physical therapy. Surgical interventions were discussed in the form of arthroscopy. We will pursue conservative management at this time with cortisone injection/physical therapy/referral to weight management. We performed a 4/1cc Marcaine / Kenalog cortisone injection into the left knee joint under sterile technique. Patient tolerated the injection well without adverse reaction. Note scribed by KWAKU Orosco, reviewed and amended by myself Chaz Carrillo D.O. Author Anita Boyd [facility]2024 10:26amPhysical examination of the right shoulder was performed today. Patient is not improving as expected with time and conservative treatment. An MRI will be necessary to assess for an injury that could require surgical treatment. Patient will follow up after MRI. Images and pain etiology were discussed with the patient. Many of the symptoms are coming from arthritis in the knee. Treatment modalities were discussed including conservative treatment in the form of oral anti-inflammatories, corticosteroid injection, hyaluronic injection, or physical therapy. Surgical interventions were discussed in the form of arthroscopy. We will pursue conservative management at this time with cortisone injection/physical therapy/referral to weight management. We performed a 4/1cc Marcaine / Kenalog cortisone injection into the left knee joint under sterile technique. Patient tolerated the injection well without adverse reaction. Note scribed by KWAKU Orosco, reviewed and amended by myself Chaz Carrillo D.O. Discussed with patient and company on the patient's symptoms, exam, and imaging. Likely etiologies of the patient's symptoms were discussed. Patient has symptoms consistent with right rotator cuff syndrome. We discussed various treatment options. At this point we will pursue conservative management in the form of weight loss management. We discussed an injection at this time and patient wishes to proceed. Under sterile condition, 1 cc of Kenalog/4 cc bupivacaine were injected into the right shoulder. Patient tolerated the procedure well. We will also begin formal weight loss management. Referral given to the patient. Patient will follow-up in 10 weeks for reevaluation. Author Meghana Rivers [facility] 2024 10:38ammeloxicam formal physical therapy Future Tests Future scheduled test information is unavailable Pending Tests Pending diagnostic test information is unavailable Future Visits Future appointment information is unavailable Future Procedures Future procedure information is unavailable Future Medications Future medication information is unavailable Patient Instructions Patient instructions are unavailable Hospital Discharge Instructions Ambulatory Orders* Referral to Weight Management Time Frame: 04/30/25, Location: None Selected
--- OUTSIDE RECORDS SUMMARY | 2025-05-02 13:43 | XMS_ITS | Patient Health Record ---
Author Organization [facility] Serv[facility] Address [address] [place] [address] Care Team Providers Care Automotive Brake Adjuster Name Role Phone Radha Mcintosh Primary Care Provider [phone] Gissell Kaufman Unavailable [phone] Dr. Bob Ureña Unavailable [phone] Allergies No Known Allergies Reason For Referral [...] Orally every 6 hours as needed for bxkppxr0103/04/2023ctiveMagnesium Oxide 400 MG Tablet1 tablet Orally twice [...] bleeding; Duration: 30 Not-Taking/PRNVitamin D3 50 MCG (1999) Capsule1 capsule Orally Once a day ActiveoxyCODONE [...] yourself in some way Not at allTotal Xqobi7WdjpyskiwitsyDela DepressionTobacco Screen:Are you a: former smoker? How long has it been since you last smoked?1-3 monthsAlcohol Screening:Did you have a drink containing alcohol in the past year?NoPoints0 InterpretationNegative Problems Problem Type SNOMED Code ICD Code Onset Dates Problem Status W/U Status Risk Notes Problem Generalized anxiety disorder (70392320) Generalized Anxiety Disorder (SANDRA) (F41.1) ActiveconfirmedProblemBody mass index 40+ - morbidly obese (777386832)BMI 40.0- 44.9, adult (Z68.41)ActiveconfirmedProblemDepressive disorder (13756439) Unspecified Depressive Disorder (F32.9)ActiveconfirmedProblemPost traumatic stress disorder (15774147)Post traumatic stress disorder (F43.10)Activeconfirmed Vital Signs Heart Rate 88 /min 10/24/2024 Cyeyyyug81 %10/24/2024lood pressure qslfsific18 mm Hg10/24/20243454Ewgdlr39.5 in 10/24/2024lood pressure brwxidec757 mm Hg10/24/20240884Brkqqp941.0 lbs10/24/2024MI 47.37 kg/m210/24/2024 Encounters Encounter Location Date Provider Diagnosis [facility] [address] [place] [address] 05/24/2024 Radha Mcintosh Generalized Anxiety Disorder (SANDRA) F41.1 [place] [address] [place] [address] 06/25/2024 Radha Cox Generalized Anxiety Disorder (SANDRA) F41.1 [place] [address] [place] [address] 01/09/2025 Radha Cox Generalized Anxiety Disorder (SANDRA) F41.1 [place] [address] [address] [place] [address] 11/01/2024 Gissellrosalie Kaufman Acute gingivitis, plaque induced K05.00 [facility] [address] [facility] [place] [address] 10/24/2024 Radha Mcintosh Generalized Anxiety Disorder (SANDRA) F41.1 and Post traumatic stress disorder F43.10 [facility] [address] [facility] [place] [address] 07/18/2024 Radha Mcintosh Generalized Anxiety Disorder (SANDRA) F41.1 ; Unspecified Depressive Disorder F32.9 and Post traumatic stress disorder F43.10 [facility] [address] [place] [address] 01/16/2025 Radha Arnaldo Generalized Anxiety Disorder (SANDRA) F41.1 ; Unspecified Depressive Disorder F32.9 and Post traumatic stress disorder F43.10 Assessments Encounter Date Diagnosis (ICD Code) Assessment Notes Treatment Notes Treatment Clinical Notes Section Notes 10/24/2024 Generalized Anxiety Disorder (GA D) (ICD-10 - [...] - K05.00)01/09/2025Generalized Anxiety Disorder (SANDRA) (ICD-10 - F41.1)05/24/2024Generalized Anxiety Disorder (SANDRA) (ICD-10 - F41.1)06/25/2024 Generalized Anxiety Disorder (SANDRA) (ICD-10 - F41.1)07/18/2024Generalized Anxiety [...] the patient/guardian. 07/18/2024Unspecified Depressive Disorder (ICD-10 - F32.9)07/18/2024Post traumatic stress disorder (ICD-10 - F43.10)01/16/2025Post traumatic stress disorder (ICD-10 - F43.10) Plan Of Treatment Next Appt Details Provider Name:Gissell Kaufman , 07/04/2025 02:20:00 PM, [address], [place], [address], Insurance Providers Payer Name Payer Address Payer Phone Subscriber Number Group Number Insured Name Patient Relationship to Insured Coverage Start Date Coverage End Date MEDICARE CGS 1 [facility] [place] [phone] [id number] Leroy TORIBIO - patient is the [id number] 2020MEDICAID SEC TO [facility] [address] [place] [id number], LISASelf - patient is the [id number] 2020DENTAL MEDICAID [facility] [address] [place] [address] [id number], LISASelf - patient is the [id number] 2019 MEDICAID SEC TO [facility] [address] [place] [id number] Leroy TORIBIO - patient is the [id number] 2020 Medical (General) History Medical History History ICD Code Fibromyalgia AnxietyDepressionIBS-CHypothyroidChronic insomniaGERDChronic pain bilateral lower back painVitamin D DeficiencyOveractive bladderLyme DiseaseSurgical History Surgery Date(Month/Year) X4 Nexgomkdouyi91/01/2015Nerve ablations from bulging hnmjZeiedetkjorix16/01/2018 Hospitalization History Reason Date(Month/Year) see surgical
--- OUTSIDE RECORDS SUMMARY | 2025-05-02 13:43 | XMS_ITS | Clinical Summary ---
Author Organization [facility] Address [address] [facility] [place] [address] Care Team Providers Care Pediatric Associate Name Role Phone Damian Lakhani MD Unavailable Source Comments The following information is NOT included in Care Everywhere downloads:Psychiatric notes, ECG results, Cardiac Rehab notes, Pulmonary Function notes, data from [employer] (includes but not limited toPregnancy data,audiograms, eye exams, pre-surgical evaluation notes, well-child exam data).[facility] Allergies No known active allergies Medications MedicationSigDispense QuantityRefillsLast FilledStart DateEnd DateStatus tramadol (ULTRAM) 50 MG tablet Take 2 tablets by mouth 2 times per day as needed for Spondylosis without gqbexltvto90/16/2023ctive temazepam (RESTORIL) 30 MG capsule TAKE 1 CAPSULE BY MOUTH ONCE A DAY (AT BEDTIME) NEEDED FOR SLEEP 30 DAY WIHBLR1307/27/2022ctive Multiple Vitamin (Multi Vitamin Daily) TABS Take [...] InformationValueDate RecordedSex Assigned at BirthNot on fileLegal KeyMdeavg80/23/2023 11:52 AM ESTGender IdentityNot on fileSexual OrientationNot on file Plan of Treatment Health MaintenanceDue DateLast FcdaZcewdnrkStxcziwnkes1977HIV Test 1992Hepatitis C Nvayohfg22/11/1995Tdap Nunjxvy1604/09/1995Hepatitis A (HAV) Vaccine (optional start 19+ years)1996Hepatitis B (HBV) Vaccine (1 of 3 - 19+ 3-dose series)1996Pap Smear1998Annual Wellness Visit (G0438) 11/28/20156774Ddgmgqabwxu60/11/2017CRC Mzrqmretd45/11/2022Cologuard (Stool DNA) 2022FIT2COVID-19 Vaccine ( - 2024- season)2025Influenza Vaccine (#1)2025Shingles (RZV) Vaccine (1 of 2)2027Cholesterol 3Pneumococcal Vaccine(s)Aged OutNo longer eligible based on patient's age to complete this topic Insurance * Guarantor: Jamila Pickard TypeRelation to PatientDate of BirthPhoneBilling AddressPersonal/DyrxssFtsv[address] [place] [address] Care Teams Team MemberRelationshipSpecialtyStart DateEnd Damian Lakhani MD [address] [place] [id number] PhysicianOrthopaedic Surgery10/02/22
--- OUTSIDE RECORDS SUMMARY | 2025-05-02 13:44 | XMS_ITS | Clinical Summary ---
Author Organization [facility] Address [address] [place] [address] Care Team Providers Care Pole Framer Machine Name Role Phone Diony Sharma MD Primary Care Provider [phone] Kenyetta Dove MD Unavailable [phone] Simón Ozuna MD Unavailable [phone] Amanda Montiel MD Unavailable [phone] Krish Hodge MD Unavailable [phone] Beny Hoskins MD Unavailable [phone] Allergies No known active allergies Medications MedicationSigDispense QuantityRefillsLast FilledStart DateEnd DateStatus B Gnawwqp-Zxjyhs-DV (Super Quints B-50) tablet Take by mouthActive [...] mouth DailyActive cholecalciferol (Vitamin D-3) 50 MCG (1999 UT) capsule Indications:Primary osteoarthritis involving multiple jointsTake 1 capsule (50 mcg) by mouth in the morning. 30 capsule 1105Active metroNIDAZOLE (Metrogel) 0.75 % gel Indications:RosaceaApply twice daily to rosacea for 8 weeks. 45 g /6Active losartan-hydroCHLOROthiazide (Hyzaar) 100-12.5 MG tablet Take 1 tablet by mouth DailyActive HYDROcodone-acetaminophen (Wolcott) 5-325 MG tablet Indications:Acute pain of left kneeTake 1-2 tablets by mouth every 6 (six) hours if needed for severe pain 42 tablet 5Active liothyronine (Cytomel) 5 MCG tablet Indications:Postoperative hypothyroidismTake 1 tablet (5 mcg) by mouth Daily 90 tablet /6Active levothyroxine (Synthroid, Levoxyl) 125 MCG tablet Indications:Postoperative hypothyroidismTake 1 tablet (125 mcg) by mouth Daily 90 tablet 6Active nystatin (Mycostatin) ointment Indications:Acute vaginitisAPPLY a thin film TOPICALLY 2 TIMES A DAY to affected area NEEDED for irritation 30 g 5Active Active Problems ProblemNoted DateDiagnosed DateRenal cyst, right12/20/2024 Overview (12/20/2024): [address] abd/pelvis 11/2024 Lyjbfubookmu51/24/2025Pulmonary yrjwtklgkhtp07/13/2025Menopausal state08/15/2024 Iron deficiency ownatp6408/04/2024Nonscarring hair loss, cqmfiqymsoc42/23/2024 Acquired absence of uterus with remaining cervical stump02/20/2024Vitamin D jqarmxsisn07/27/2024cquired kngtjxghsiwvwg40/27/2024Irritable bowel syndrome with drcpclaljecl21/27/2024Urinary tlkgepuop29/27/2024Mixed stress and urge urinary ylsheokwzvhs04/27/1159Jsnugieizayt84/27/2024rimary osteoarthritis involving multiple uabsoy2001/24/2024GAD (generalized anxiety disorder)01/24/2024 Moderate major /27/2024Essential doalfcwzrdbs56/27/2024History of kqleln0801/24/2024hronic bilateral thoracic back pain01/24/2024 Encounters DateTypeDepartmentCare TgxqMudoafbcukg51/18/2025Refill [facility] [place] [facility] [address] [place] [phone] Amanda Montiel MD Acute eupfomsxw99/06/2025Refill [facility] [place] [facility] [address] [place] [address] Ashley Araya, 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 Bacterial jqliwlomh66/16/2025 2:45 PM EDTOffice Visit [facility] [place] [facility] [address] [place] [address] Amanda Montiel MD Hormone imbalance; Pelvic pain in dndlcc1902/12/2025 2:00 PM EDTAncillary Procedure [facility] [place] [facility] [address] [place] [address] Pelvic pain in ohkvpt8202/12/2025 11:10 AM EDTOffice Visit [facility] [place] [facility] [address] [place] [phone] Kenyetta Dove MD Postoperative hypothyroidism (Primary Dx); Abnormal cortisol level; Encounter for dietary consultation; Vitamin D deficiency; Class 3 severe obesity due to excess calories without serious comorbidity with body mass index (BMI) of 50.0 to 59.9 in adult ([facility])02/12/2025Travel 02/12/2025External Result Encounter [facility] External Department Unsolicited Provider, Generic External Data 01/31/2025Results Follow-Up [facility] [place] [facility] [address] [place] [address] Amanda Montiel MD IGP, APT HPV,RFX ,45, Testosterone, free, total, NuSwab Vaginitis Plus (VG+), Additional followed-up results: 11001/31/2025Orders Only [facility] [place] [facility] [address] [place] [address] Diony Benz MD from Last 3 Months Immunizations ImmunizationAdministration DatesNext EqxEHC3908/01/1979,04/18/1979,05/13/1978DTaP, Iswrsuccxmz22/14/1980Hep B, adult06/05/2001,12/28/2000,11/14/2000IPV10/11/1979, 08/01/1979,05/13/1978,1977MMR11/21/2000,01/07/1983 Family History Medical HistoryRelationNameCommentsHeart [...] 0.6 oz pure alcohol)PHQ-2AnswerDate RecordedPatient Health Questionnaire-2 Uvkdg216 CommentsUnknownSex and Gender InformationValueDate RecordedSex Assigned at BirthNot on fileLegal NrvKbjprm79/15/2023 7:12 PM EDTGender IdentityNot on fileSexual OrientationNot on fileOccupationIndustryJob Start DateJob End Date disabledNot on fileNot on fileNot on file Last Filed Vital Signs Vital SignReadingTime TakenCommentsBlood Fiaspjdc170/76002/12/2025 2:52 PM EDT Dlsyn800602/12/2025 11:06 AM EDTTemperature--Respiratory Joja347502/12/2025 11:06 AM EDTOxygen Htwtugjezm43%02/12/2025 11:06 AM EDTInhaled Oxygen Concentration-- Koojdo890 kg (326 lb)02/12/2025 2:52 PM XMBHqppyb526.2 cm (5' 7 )02/12/2025 11:06 AM EDTBody Mass Index51.0602/12/2025 11:06 AM EDT Plan of Treatment DateTypeDepartmentCare Team (Latest Contact Info)Pzquuqwzgyy26/10/2025 10:45 AM ESTOffice Visit [facility] [address] [place] [address] 02/11/2026 11:00 AM EDTOffice Visit [facility] [address] [place] [address] Kenyetta Dove MD [address] [place] [address] Health MaintenanceDue DateLast DoneCommentsCT Oekpkkoptzxj1977Colonoscopy 1977Colorectal Cancer Dspuvjize1977FIT-DNA1977FIT1977 FOBT1977 9047Bzrtaxsjcinui1977Pneumococcal Vaccine: Pediatrics (0 to 5 Years) and At-Risk Patients (6 to 64 Years) (1 of 2 - PCV)1996Pap Smear COVID-19 Vaccine ( season)2025Influenza Vaccine (#1)2025Medicare Annual Wellness (AWV)/06/2024, 12/13/2024, 12/31/20210894Lxibiookn35, 01/20/2024, 12/29/2022 Cervical Cancer Zanfsruox23/02/2030HPV/Nbmsgt99, 11/07/2018 Procedures Procedure NamePriorityDate/TimeAssociated DiagnosisCommentsUS PELVIS NDIYPTEKZDUNZkgdhxz73/16/2025 2:35 PM EDT Pelvic pain in female BI MAMMOGRAM SCREENING TOMOSYNTHESIS QJPMXKODR10/16/2025 9:28 AM EDT KTZBUKXPhgnifi90/10/2025 1:21 PM EDT Hormone imbalance T3, SQFFNMmghlyn75/10/2025 1:21 PM EDT Hormone imbalance T3, PKODWqcliqr69/10/2025 1:21 PM EDT Hormone imbalance HEMOGLOBIN F2DWpdcqfs95/10/2025 1:21 PM EDT Hormone imbalance MHITYJWANNdhbvsp73/10/2025 1:21 PM EDT Hormone imbalance SMOgdzifa87/10/2025 1:21 PM EDT Hormone imbalance UJJOMZHVBFHVLundaqu12/10/2025 1:21 PM EDT Hormone imbalance TESTOSTERONE FREE AND YPNTVQkuvodz59/10/2025 1:21 PM EDT Hormone imbalance T4, PBAGIoodmqz99/10/2025 1:21 PM EDT Hormone imbalance NMVJvsssdm57/10/2025 1:21 PM EDT Hormone imbalance DZJFaygykr65/10/2025 1:21 PM EDT Hormone imbalance IGP, APT HPV,RFX 16/18,33Zozkzdc59/02/2025 12:00 AM EDT Encounter for gynecological examination without abnormal finding Encounter for screening for cervical cancer from Last 3 Months or Most Recently Relevant to Health Maintenance Results * US pelvis transvaginal (02/12/2025 2:35 PM EDT)Anatomical RegionLaterality ModalityPelvisUltrasoundStudy GAStudy DateStudy EDDWorking SNEHAL (Source) 02/12/2025Specimen (Source)Anatomical Location / LateralityCollection Method / VolumeCollection TimeReceived Time Narrative 02/18/2025 3:35 PM EDT Images from the original result were not included. Obstetrics & Gynecology ? [address] ? [address] ? [address] ?[address], [facility] [address] ? [place] [address] [place] [address] ? - - - - - - [...] not visualized. Ordering/Reading Provider: Amanda Montiel M.D. ??Smoking Pipe Liner: Carolyn Palacio RDMS Authorizing ProviderResult TypeResult StatusAmanda JEFFERSON US PROCEDURES Final Result * Bilateral screening [...] M.D. ??02/12/2025 9:55 AM ? Dictation Location: DWS01 ? Dictated By: ?Larry Perez MD ? 02/12/2528 ? Signed By: <Electronically signed by Larry Perez MD in OV> ? 02/12/25 0955 Narrative 02/12/2025 9:57 AM EDT [facility] ?[address] ?[place] [address] ?? [phone] ? Mammography Report ? Signed ? Patient: Alley,Lupe M ?MR#: [id number] ? : 1975 ?Acct:[id number] ? Age/Sex: 49 / F ?Adm Date: 02/11/25 ? Loc: [place] ?Room: ?Type: DEP CLI ?? Attending Dr: Referral Self ? Ordering Provider: SELF,REFERRAL ? Date of Service: 02/11/25 ? Procedure(s): MM screening mammo BI w/CAD ?? Accession Number(s): ([id number]) MM/MM screening mammo BI w/CAD: SCREENING ? [...] ?? Procedure Note Radiology, Radiologist, - 02/12/2025 [place] [address] Mammography Report Signed Patient: Lupe Pickard MMR#: [id number] : 1975Acct:[id number] Age/Sex: 49 / FAdm Date: 02/11/25 Loc: [place] Room:Type: [facility] Attending Dr: Referral Self Ordering Provider: SELF,REFERRAL Date of Service: 02/11/25 Procedure(s): MM screening mammo BI w/CAD Accession Number(s): ([id number]) MM/MM screening mammo BI w/CAD:SCREENING Copies to: [...] PM EDT)ComponentValueRef RangeTest Method Analysis TimePerformed AtPathologist VzcibmnohNxuphnr81.82.6 - 24.9 uIU/mL [facility]PSpecimen (Source)Anatomical Location / LateralityCollection Method / VolumeCollection TimeReceived TimeBloodVenous blood specimen / Unknown 02/06/2025 1:21 PM EDT02/06/2025 Narrative [facility] - 02/12/2025 6:06 AM EDT Performed at: 01 - [facility] [address] ??[id number] Cylinder Batcher: Ramirez Ca PhD, Phone: ??[phone] Authorizing ProviderResult TypeResult StatusAmanda Montiel MDLAB BLOOD ORDERABLESFinal ResultPerforming OrganizationAddressCity/State/[facility] CodePhone Number [facility] * Progesterone (02/06/2025 1:21 [...] Volume Collection TimeReceived TimeBloodVenous blood specimen / Jqcqcbj2302/06/2025 1:21 PM EDT02/06/2025 Narrative [facility] - 02/12/2025 6:06 AM EDT Performed at: 03 - [facility] [place] [address] , [address], [place], [place] ??[id number] Cylinder Batcher: Natanael Tilley MD, Phone: ??[phone] Authorizing ProviderResult TypeResult StatusAmanda Montiel MDLAB BLOOD ORDERABLESFinal ResultPerforming OrganizationAddressCity/State/ZIP CodePhone Number [facility] * Estradiol (02/06/2025 1:21 PM EDT)ComponentValueRef RangeTest MethodAnalysis TimePerformed AtPathologist ZresdjpunWsbhtypba05.6pg/mLLABCORPComment: ? Adult Female ? Range ?Follicular phase ? 12.5 - 166.0 ?Ovulation phase ?85.8 - 498.0 ?Luteal phase ? 43.8 - 211.0 Postmenopausal <6.0 - 54.7 ? 1st trimester 215.0 - >4300.0 [place] ECLIA methodology Specimen (Source)Anatomical Location / LateralityCollection Method / Volume Collection TimeReceived TimeBloodVenous blood specimen / Kbwceic6302/06/2025 1:21 PM EDT02/06/2025 Narrative [facility] - 02/12/2025 6:06 AM EDT Performed at: 03 - [facility] [address] , [address], [place], [place] ??[id number] Cylinder Batcher: Natanael Tilley MD, Phone: ??[phone] Authorizing ProviderResult TypeResult StatusAmanda Montiel MDPRATT REGIONAL MEDICAL [facility]ENTER BLOOD ORDERABLESFinal ResultPerforming OrganizationAddressCity/State/ZIP CodePhone Number [facility] * (ABNORMAL) Testosterone, free, total (02/06/2025 1:21 PM EDT)ComponentValueRef RangeTest MethodAnalysis TimePerformed AtPathologist SignatureTESTOSTERONE<3 (L)4 - 50 ng/dLLABCORPFree Testost Direct0.50.0 - 4.2 pg/mLLABCORPSpecimen (Source)Anatomical Location / LateralityCollection Method / VolumeCollection TimeReceived TimeBloodVenous blood specimen / Vaysbqc1902/06/2025 1:21 PM EDT 02/06/2025 Narrative [facility] - 02/12/2025 6:06 AM EDT Performed at: - [address] ??[id number] Cylinder Batcher: Ramirez Ca PhD, Phone: ??[phone] Performed at: ??02 - [address] ??[id number] Cylinder Batcher: Roger Kenny MD, Phone: ??[phone] Authorizing ProviderResult TypeResult StatusAmanda Montiel MDPRATT REGIONAL MEDICAL [facility]ENTER BLOOD ORDERABLESFinal ResultPerforming OrganizationAddressty/State/ZIP CodePhone Number [facility] * T3, free (02/06/2025 1:21 PM EDT)ComponentValueRef RangeTest MethodAnalysis TimePerformed AtPathologist SignatureT3, FREE3.22.0 - 4.4 pg/mLLABCORPSpecimen (Source)Anatomical Location / LateralityCollection Method / VolumeCollection TimeReceived TimeBloodVenous blood specimen / Cxthjfz2902/06/2025 1:21 PM EDT 02/06/2025 Narrative [facility] - 02/12/2025 6:06 AM EDT Performed at: [address] ??[id number] Cylinder Batcher: Ramirez Ca PhD, Phone: ??[phone] Authorizing ProviderResult TypeResult StatusAmanda BRUNO BLOOD ORDERABLESFinal ResultPerforming OrganizationAddressty/State/ZIP CodePhone Number [facility] * T3 (02/06/2025 1:21 PM EDT)ComponentValueRef RangeTest MethodAnalysis Time Performed AtPathologist SignatureT3 Cglqmqvjankdtrsb45785 - 180 ng/dLLABCORP Specimen (Source)Anatomical Location / LateralityCollection Method / Volume Collection TimeReceived TimeBloodVenous blood specimen / Sdzmpta1502/06/2025 1:21 PM EDT02/06/2025 Narrative [facility] - 02/12/2025 6:06 AM EDT Performed at: [address] ??[id number] Cylinder Batcher: Ramirez Ca PhD, Phone: ??[phone] Authorizing ProviderResult TypeResult StatusAmanda BRUNO BLOOD ORDERABLESFinal ResultPerforming OrganizationAddressCity/State/ZIP CodePhone Number [facility] * TSH (02/06/2025 1:21 PM EDT)ComponentValueRef RangeTest MethodAnalysis Time Performed AtPathologist SignatureTSH2.4900.450 - 4.500 uIU/mLLABCORPSpecimen (Source)Anatomical Location / LateralityCollection Method / VolumeCollection TimeReceived TimeBloodVenous blood specimen / Wkipyij7702/06/2025 1:21 PM EDT 02/06/2025 Narrative [facility] - 02/12/2025 6:06 AM EDT Performed at: [address] [place] [address], [address], [place], [place] ??[id number] Cylinder Batcher: Natanael Tilley MD, Phone: ??[phone] Authorizing ProviderResult TypeResult StatusAmanda Montiel MDPRATT REGIONAL MEDICAL [facility]ENTER BLOOD ORDERABLESFinal ResultPerforming OrganizationAddressCity/State/ZIP CodePhone Number [facility] * T4, free (02/06/2025 1:21 PM EDT)ComponentValueRef RangeTest MethodAnalysis TimePerformed AtPathologist ZaedrkichU4Jupr(Direct)1.020.82 - 1.77 ng/dL [facility]PSpecimen (Source)Anatomical Location / LateralityCollection Method / VolumeCollection TimeReceived TimeBloodVenous blood specimen / Unknown 02/06/2025 1:21 PM EDT02/06/2025 Narrative [facility] - 02/12/2025 6:06 AM EDT Performed at: 03 - [facility] [place] [address] [address] [facility], [address] ??[id number] Cylinder Batcher: Natanael Tilley MD, Phone: ??[phone] Authorizing ProviderResult TypeResult Arianna Montiel MDPRATT REGIONAL MEDICAL [facility]ENTER BLOOD ORDERABLESFinal ResultPerforming OrganizationAddressCity/State/ZIP CodePhone Number [facility] * (ABNORMAL) Hemoglobin A1c (02/06/2025 1:21 PM EDT)ComponentValueRef RangeTest MethodAnalysis TimePerformed AtPathologist CjanwjwchWxgX7R5.4(H)4.8 - 5.6 % [facility]PComment: ? Prediabetes: 5.7 - 6.4 Diabetes: >6.4 Glycemic control for adults with diabetes: <7.0 Specimen (Source)Anatomical Location / LateralityCollection Method / Volume Collection TimeReceived TimeBloodVenous blood specimen / Qhpcpgw3102/06/2025 1:21 PM EDT02/06/2025 Narrative [facility] - 02/12/2025 6:06 AM EDT Performed at: - [address] ??[id number] Cylinder Batcher: Ramirez Ca PhD, Phone: ??[phone] Authorizing ProviderResult TypeResult Arianna Montiel MDPRATT REGIONAL MEDICAL [facility]ENTER BLOOD ORDERABLESFinal ResultPerforming OrganizationAddressCity/State/ZIP CodePhone Number [facility] * Luteinizing hormone (02/06/2025 1:21 PM EDT)ComponentValueRef RangeTest Method Analysis TimePerformed AtPathologist SignatureLH5.1mIU/mLLABCORPComment: ? Adult Female ?Range ?Follicular phase ?2.4 - ??12.6 ?Ovulation phase ?14.0 - ??95.6 ?Luteal phase ?1.0 - ??11.4 ?Postmenopausal ?7.7 - ??58.5 Specimen (Source)Anatomical Location / LateralityCollection Method / Volume Collection TimeReceived TimeBloodVenous blood specimen / Fkhenyi6002/06/2025 1:21 PM EDT02/06/2025 Narrative [facility] - 02/12/2025 6:06 AM EDT Performed at: 03 - [place] [address], [address], [place], [place] ??[id number] Cylinder Batcher: Natanael Tilley MD, Phone: ??[phone] Authorizing ProviderResult TypeResult StatusAmanda BRUNO BLOOD ORDERABLESFinal ResultPerforming OrganizationAddressCity/State/ZIP CodePhone Number [facility] * Follicle stimulating hormone (02/06/2025 1:21 PM EDT)ComponentValueRef Range Test MethodAnalysis TimePerformed AtPathologist YfyfthvchXMM18.3mIU/mLL[facility] Comment: ? Adult Female ? Range ?Follicular phase ?3.5 - ??12.5 ?Ovulation phase ? 4.7 - ??21.5 ?Luteal phase ?1.7 - ?? 7.7 ?Postmenopausal ? 25.8 - 134.8 Specimen (Source)Anatomical Location / LateralityCollection Method / Volume Collection TimeReceived TimeBloodVenous blood specimen / Qwjkyrk3902/06/2025 1:21 PM EDT02/06/2025 Narrative [facility] - 02/12/2025 6:06 AM EDT Performed at: 03 - [facility] [address] , [address], [place], [place] [id number] Cylinder Batcher: Natanael Tilley MD, Phone: ??[phone] Authorizing ProviderResult TypeResult StatusAmanda Montiel MDLAB BLOOD ORDERABLESFinal ResultPerforming OrganizationAddressCity/State/ZIP CodePhone Number [facility] * IGP, APT HPV,RFX 16/18,45 (01/29/2025 12:00 AM EDT)ComponentValueRef RangeTest MethodAnalysis TimePerformed AtPathologist SignatureDiagnosis:CommentL[facility]P Comment:NEGATIVE FOR INTRAEPITHELIAL LESION OR MALIGNANCY.Specimen Adequacy: CommentLABCORPComment:Satisfactory for evaluation. No endocervical component is identified.Clinician Provided ICD10:CommentLABCORPComment: Z01.419 Z12.4 Performed By:CommentLABCORPComment:Keisha Olivo, Warranty Clerk ([facility])Cyto Comments .[facility]ABCORPNote:CommentLABCORPComment: The Pap smear is a [...] 5:07 PM EDT Performed at: 01 - [address] ??[id number] Cylinder Batcher: Laila Connelly MD, Phone: ??[phone] Performed at: ??02 - [address] ??[id number] Cylinder Batcher: Laila Connelly MD, Phone: ??[phone] Specimen Comment: No. of containers..01 ThinPrep Vial Authorizing ProviderResult TypeResult StatusAmanda Montiel MDLAB BLOOD ORDERABLESFinal ResultPerforming OrganizationAddressCity/State/ZIP CodePhone Number [facility] from Last 3 Months or Most Recently Relevant to Health Maintenance Insurance Care Teams Team MemberRelationshipSpecialtyStart Date Diony Sharma MD [address] [facility] [address] [place] [address] PCP - GeneralInternal Medicine01/24/24 Kenyetta Dove MD [address] [facility] [place] [address] Referring PhysicianEndocrinology08/01/24 Simón Ozuna MD [address] [place] [address] Referring PhysicianUrology08/01/24 Amanda Montiel MD [address] [facility] [address] [place] [address] Obstetrics and Gynecology08/01/24 Krish Hodge MD [address] [place] [address] Referring PhysicianOphthalmology08/01/24 Beny Hoskins MD [address] [place] [address] [address] [place] [address] Referring PhysicianGastroenterology08/01/24 [facility] 08/01/24
--- OUTSIDE RECORDS SUMMARY | 2025-05-02 13:44 | XMS_ITS | Encounter Summary ---
Author Organization [facility] Address [address] [place] [address] Phone Care Team Providers Care Tactical Air Control Party Manager Name Role Phone Simón Davidson DO Primary Care Provider [phone] Encounter Details DateTypeDepartmentCare Team (Latest Contact Info)Xtlckkgitjj1977Scanned Document [facility] [address] [place] [phone] Scanning, Generic Provider Social History Tobacco UseTypesPacks/DayYears UsedDateSmoking Tobacco: Never Assessed CommentsUnknownSex and Gender InformationValueDate RecordedSex Assigned at Not on fileLegal AztFewfuq72/26/2022 12:23 AM ESTGender IdentityNot on file Sexual [...] Team MemberRelationshipSpecialtyStart DateEnd Date Simón Davidson DO PCP - General10/21/17documented as of this encounter
--- OUTSIDE RECORDS SUMMARY | 2025-05-02 13:45 | XMS_ITS | Clinical Summary ---
Author Organization [facility] Address [address] [place] [address] Care Team Providers Care Production Specialist Name Role Phone Simón Davidson DO Unavailable [phone] Allergies No known active allergies Medications MedicationSigDispense QuantityRefillsLast FilledStart DateEnd DateStatus Glucosamine-Chondroitin 500-400 mg tablet Take 1 tablet by mouth three times daily.Active FE FUMARATE/CA CARB/VITAMIN D3 (BSWNCSX-IYJO0-KZDQUKS FUMARATE ORAL) Take by mouth.Active Multivitamin capsule [...] MOUTH 2 TIMES A DAY NEEDED FOR VLYQWDX7305/03/2023ctive temazepam (RESTORIL) 30 mg cap TAKE 1 CAPSULE BY MOUTH ONCE A DAY (AT BEDTIME) NEEDED FOR SLEEP 30 DAY XJOREG4507/27/2022ctive vit B-comp w-Fe,Ca,FA<1mg (IRON-VITAMINS ORAL) Take by [...] RecordedNational Score (1-100), lower number is lower gtjx665105/17/2023State Score (1-10), lower number is lower vrmi5763Data from: https://www.neighborhoodatlas.medicine.[facility].edu/. Last address used for qocaidxnfla[address] [facility]3CommentsNo Sex and Gender InformationValueDate RecordedSex Assigned at BirthNot on file Legal ShoTubbht65/12/2013 1:57 PM EDTGender IdentityNot on fileSexual OrientationNot on fileOccupationIndustryJob Start DateJob End DateunemployedNot on fileNot on fileNot on file Last Filed Vital Signs Vital SignReadingTime TakenCommentsBlood Dltmfgqo884/8105/17/2023 2:01 PM EST Tkrzu876805/17/2023 2:01 PM ESTTemperature--Respiratory Lkud576007/18/2022 2:01 PM ESTOxygen Vrxkamcofy98%05/17/2023 2:01 PM ESTInhaled Oxygen Concentration-- Bflhgz010.8 kg (268 lb 8.3 oz)05/17/2023 2:01 PM OBZNuioue254.2 cm (5' 7 ) 01/18/2014 2:26 PM EDTBody Mass Index42.0601/18/2014 2:26 PM EDT Plan of Treatment Health MaintenanceDue DateLast DoneCommentsDTaP,Tdap,Td Vaccine (4 - Tdap) , 08/01/1979, 04/18/1979, Additional history existsAnnual PCP Team Chronic Disease Visit1995Anxiety Rsyrzwhgd72/11/1995HIV Screening 1995Hepatitis C Rgoaqabov43/11/1995Cervical Cancer Qudutrfjd38/11/1998 Medicare Annual Wellness Visit08/28/2013CT Bblitbdzxeod32/11/2022ologuard (FIT-DNA)04/09/20220058Aabulvcfszz39/11/2022olorectal Cancer Qeieeytru76/11/2022 Fecal Occult Blood2022Lipid Krbxgznyo60/11/7158Rgmeujtrwkdzu53/11/2022 Mammogram Ekpoqsrwc72ovid-19 Vaccine ( season) 2025Influenza Vaccine (#1)2025Diabetes Ghlijmvig71 Hepatitis B ZgsaeerCssfeprsg54/07/2002, 12/28/2000, 11/14/2000 Procedures Procedure NamePriorityDate/TimeAssociated DiagnosisCommentsCOMPREHENSIVE METABOLIC DDOITTgdbrjd11/21/2023 8:07 AM EST Positive WILL (antinuclear antibody) from Last 3 Months or Most Recently Relevant to Health Maintenance Results * (ABNORMAL) COMP METABOLIC PANEL (05/19/2023 8:07 AM EST)ComponentValueRef RangeTest MethodAnalysis TimePerformed AtPathologist SignatureProtein, Total 6.76.3 - 8.0 g/dL05/19/2023 8:43 AM [facility] Albumin4.13.9 - 4.9 g/dL05/19/2023 8:43 AM ESTNOR[facility]CO[facility] LABCalcium, Total9.28.5 - 10.2 mg/dL05/19/2023 8:43 AM ESTNOR[facility]CO[facility] LABBilirubin, Total0.20.2 - 1.3 mg/dL05/19/2023 8:43 AM ESTNORTHCOAST [facility] LABAlkaline Mdmslasledd7713 - 123 U/L 05/19/2023 8:43 AM ESTNOR[facility]CO[facility] XMAWHV19(L)13 - 35 U/L 05/19/2023 8:43 AM [facility] XGNYMQ048 - 38 U/L 05/19/2023 8:43 AM [facility] YRUOdjjncp843(H)74 - 99 mg/dL05/19/2023 8:43 AM [facility] LABComment: The [place] Diabetes Association (ADA) provides guidance for cutoff [...] Standards of Medical Care in Diabetes 2016, [place] Diabetes Association. Diabetes Care. 2016.39(Suppl 1). VFS211 - 21 mg/dL05/19/2023 8:43 AM [facility] Creatinine0.650.58 - 0.96 mg/dL05/19/2023 8:43 AM [facility] XLINkdkpy004292 - 144 mmol/L107/20/2022 8:43 AM [facility] LABPotassium4.33.7 - 5.1 mmol/L107/20/2022 8:43 AM [facility] XAMAiqmbogj230(H)97 - 105 mmol/L107/20/2022 8:43 AM [facility] GMOWZ07511 - 30 mmol/L107/20/2022 8:43 AM [facility] LABAnion Gap99 - 18 mmol/L107/20/2022 8:43 AM [facility] LABEstimated Glomerular Filtration Knou404 >=60 mL/min/1.73m 05/19/2023 8:43 AM [facility] LABComment:Estimated Glomerular Filtration Rate (eGFR) is [...] VolumeCollection TimeReceived TimeBloodBLOOD SPECIMEN / UnknownVenipuncture / Qttutmo2305/19/2023 8:07 AM EST05/19/2023 8:08 AM EST Narrative Authorizing ProviderResult TypeResult StatusRupal Myles Brambila MDLABORATORY Final ResultPerforming OrganizationAddressCity/State/ZIP CodePhone Number [facility] [address] [place] [address] from Last 3 Months or Most Recently Relevant to Health Maintenance Insurance Care Teams Team MemberRelationshipSpecialtyStart DateEnd Date Simón Davidson DO [facility]11/22/22
--- OUTSIDE RECORDS SUMMARY | 2025-05-02 13:45 | XMS_ITS | Clinical Summary ---
Author Organization [facility] Address [address] 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 Installer Name Role Phone Simón Davidson Primary Care Provider [phone] Medications MedicationSigDispense QuantityRefillsLast FilledStart DateEnd DateStatus ALPRAZolam [...] DateDiagnosed DateAnomalous optic nerve04/19/2023Hypertropia of right eye04/19/2023Vertical zludnfwm73/21/8435Romlokn76/21/2023trial burtqgybfqy07/21/2023hest pain04/19/20236314Jvxttmqrtpvdmx51/21/2023alpitations 04/19/2023VC (premature ventricular contraction)04/19/2023Shortness of breath 04/19/2023Vitamin D zjzkjuyatd42/21/2023 Family History Medical HistoryRelationNameCommentsNo Known ProblemsFatherNo Known Problems MotherRelationNameStatusCommentsFatherMother Social History Tobacco UseTypesPacks/DayYears UsedDateSmoking Tobacco: FormerCigarettes Tobacco Cessation:Counseling Given: Not Answered Alcohol UseStandard Drinks/WeekCommentsYes0 (1 standard drink = 0.6 oz pure alcohol)sociallyCommentsUnknownSex and Gender InformationValueDate RecordedSex Assigned at BirthNot on fileLegal BuhQhtupn69/26/2022 12:23 AM EST Gender IdentityNot on fileSexual OrientationNot on file Last Filed Vital Signs Vital SignReadingTime TakenCommentsBlood Qmycufei234/8007 8:50 AM EDT Nkwza1521/12/2023 8:50 AM EDTTemperature--Respiratory Rate--Oxygen Saturation-- Inhaled Oxygen Concentration--Jnwbtf267 kg (270 lb)12/08/2022 8:50 AM EDTHeight 170.2 cm (5' 7 )12/08/2022 8:50 AM EDTBody Mass Index42.29012/08/2022 8:50 AM EDT Plan of Treatment Health MaintenanceDue DateLast DoneCommentsCT Utlhmmxtanjo1977Colonoscopy 1977Colorectal Cancer Fzdygyyns1977FIT-DNA (Cologuard)1977FIT 1977HIV Rnqtmsdgr1977Lipid Panel1977Medicare Annual Wellness Visit (AWV)1977 8772Rbqrrkmwiunkf1977TSH Level1977MMR Vaccines (1 of 1 - Standard series)1978Hepatitis C Mjaoqjjzw05/11/1995Hepatitis B Vaccines (1 of 3 - 19+ 3-dose series)1996Cervical Cancer Screening 1998HPV/Kbuxff1004/09/1998Pap Smear1998DTaP/Tdap/Td Vaccines (1 - Tdap)04/09/19997570Zwsfwljos07/11/2017Influenza Vaccine (#1)2024OVID-19 Vaccine ( - 2024- season)2025Zoster Vaccines (1 of 2)2027HIB [...] Team MemberRelationshipSpecialtyStart DateEnd Date Simón Davidson DO [facility]10/21/17
--- NOTE | 2025-05-02 14:12 | PM.CN ---
Consult Note: HPI Data of Consult Patient: known to practice within the last 3 years Consult date: 05/02/25 Requesting Physician: Brielle Dominguez NP Primary Care Provider: Non-Staff Physician, Consult Narrative Reason for consult: right shoulder/upper back pain Narrative: Lupe Pickard a 50 year old female with chronic back pain as well as right shoulder pain unresponsive to > 6 weeks of PT/HEP, heat, ice, tylenol, NSAIDs presents for evaluation. pt status post bilateral thoracic T7/8 T9/10 facet RFA with mild to moderate relief. noting significant right shoulder pain, recently evaluated by orthopedics who offered surgical intervention per pt however she would like to delay. Pt notes pain 6/10 increasing with twisting, pushing, pulling, bending, and activity. cc:: CC: Brielle Dominguez NP Review of Systems ROS Musculoskeletal Reports: extremity pain and joint pain PFSH PFSH Medical History Lumbago ?M54.50 - Low back pain, unspecified (ICD-10) Thoracic spondylosis ?M47.814 - Spondylosis without myelopathy or radiculopathy, thoracic region (ICD-10) Muscle spasm ?M62.838 - Other muscle spasm (ICD-10) Thoracic neuritis ?M54.14 - Radiculopathy, thoracic region (ICD-10) Chronic pain syndrome ?G89.4 - Chronic pain syndrome (ICD-10) Lumbar spondylosis ?M47.816 - Spondylosis without myelopathy or radiculopathy, lumbar region (ICD-10) Greater trochanteric bursitis of right hip ?M70.61 - Trochanteric bursitis, right hip (ICD-10) Thoracic stenosis ?M48.04 - Spinal stenosis, thoracic region (ICD-10) Chronic bilateral low back pain ?M54.50 - Low back pain, unspecified (ICD-10) ?G89.29 - Other chronic pain (ICD-10) Sacroiliitis ?M46.1 - Sacroiliitis, not elsewhere classified (ICD-10) Sacroiliac joint dysfunction ?M53.3 - Sacrococcygeal disorders, not elsewhere classified (ICD-10) Lumbar stenosis with neurogenic claudication ?M48.062 - Spinal stenosis, lumbar region with neurogenic claudication (ICD-10) Neck pain ?M54.2 - Cervicalgia (ICD-10) Shoulder pain ?M25.519 - Pain in unspecified shoulder (ICD-10) Arthritis ?M19.90 - Unspecified osteoarthritis, unspecified site (ICD-10) Back pain ?M54.9 - Dorsalgia, unspecified (ICD-10) Dyspnea on exertion ?R06.09 - Other forms of dyspnea (ICD-10) Hypothyroidism ?E03.9 - Hypothyroidism, unspecified (ICD-10) Thyroid disease ?E07.9 - Disorder of thyroid, unspecified (ICD-10) Pseudotumor cerebri ?G93.2 - Benign intracranial hypertension (ICD-10) PTSD (post-traumatic stress disorder) ?F43.10 - Post-traumatic stress disorder, unspecified (ICD-10) Chronic fatigue syndrome ?G93.32 - Myalgic encephalomyelitis/chronic fatigue syndrome (ICD-10) Depression ?F32.A - Depression, unspecified (ICD-10) Anxiety ?F41.9 - Anxiety disorder, unspecified (ICD-10) HTN (hypertension) ?I10 - Essential (primary) hypertension (ICD-10) Palpitations ?R00.2 - Palpitations (ICD-10) Osteoarthritis ?M19.90 - Unspecified osteoarthritis, unspecified site (ICD-10) Fibromyalgia ?M79.7 - Fibromyalgia (ICD-10) IBS (irritable bowel syndrome) ?K58.9 - Irritable bowel syndrome without diarrhea (ICD-10) Constipation ?K59.00 - Constipation, unspecified (ICD-10) Surgical History S/P insertion of spinal cord stimulator (07/23/24) ?Z96.89 - Presence of other specified functional implants (ICD-10) S/P epidural steroid injection ?Z92.241 - Personal history of systemic steroid therapy (ICD-10) History of radiofrequency ablation (RFA) of nerve of lumbar spine ?Z98.890 - Other specified postprocedural states (ICD-10) History of colonoscopy ?Z98.890 - Other specified postprocedural states (ICD-10) History of breast biopsy ?Z98.890 - Other specified postprocedural states (ICD-10) H/O section ?Z98.891 - History of uterine scar from previous surgery (ICD-10) History of hysterectomy ?Z90.710 - Acquired absence of both cervix and uterus (ICD-10) History of thyroidectomy ?E89.0 - Postprocedural hypothyroidism (ICD-10) Family History Other Family history of cancer Family history of diabetes mellitus Family history of heart disease Family history of hypertension Family history of myocardial infarction Family history of stroke Kidney disease Social History Within the past year, how often did you have a drink containing alcohol: never Score interpretation: A score less than 3 is consistent with normal alcohol consumption. Smoking status: Former smoker Do you use any of these nicotine containing products: vaping products Non-prescribed substance use: denies use Highest level of school completed/degree received: high school graduate Meds Home Medications and Allergies Home Medications ?Medication ?Instructions ?Recorded ?Confirmed ?Type cholecalciferol (vitamin D3) 50 50 mcg PO DAILY 12/30/22 04/01/25 History mcg (2,000 unit) capsule (Vitamin D3) liothyronine 5 mcg tablet 5 mcg PO DAILY 12/30/22 04/01/25 History lubiprostone 24 mcg capsule 24 mcg PO DAILY PRN IBS -C 12/30/22 04/01/25 History magnesium oxide 400 mg (241.3 mg 400 mg PO DAILY 12/30/22 04/01/25 History magnesium) tablet melatonin 10 mg tablet 10 mg PO DAILY 12/30/22 04/01/25 History multivitamin (Daily Multi-Vitamin 1 tab PO DAILY 12/30/22 04/01/25 History tablet) Lactobacillus acidophilus 10 100 mmu cells PO DAILY 08/03/23 04/01/25 History billion cell capsule (Probiotic) escitalopram oxalate 20 mg tablet 20 mg PO DAILY 08/03/23 04/01/25 History (Lexapro) ferrous sulfate 325 mg (65 mg 325 mg PO DAILY 08/03/23 04/01/25 History iron) tablet (Feosol) propranolol 20 mg tablet 20 mg PO BID 08/03/23 04/01/25 History calcium 500 mg (as 1 tab PO DAILY 07/13/24 04/01/25 History carbonate)-vitamin D3 5 mcg (200 unit) tablet (Oyster Shell Calcium-Vitamin D3) collagen capsule PO 07/13/24 History vit B complex-folic acid 400 1 cap PO DAILY 07/13/24 04/01/25 History mcg-choline 20 mg-inositol 50 mg capsule (Super B-50 Complex) levothyroxine 125 mcg tablet 125 mcg PO DAILY 11/27/24 04/01/25 History potassium chloride 10 mEq 10 meq PO BID 11/27/24 04/01/25 History tablet,extended release(part/cryst) losartan 100 tab 12/17/24 History mg-hydrochlorothiazide 12.5 mg tablet Allergies Allergy/AdvReac Type Severity Reaction Status Date / Time No Known Drug Allergies Allergy Verified 04/01/25 06:54 Exam Constitutional Documenting provider has reviewed patient's vital signs: yes Common normals: no apparent distress, oriented x3 and alert General appearance: cooperative HENMT Common normals: normocephalic, hearing grossly normal bilaterally and moist oral mucous membranes Head and scalp: normocephalic Eye Common normals: PERRL Pupil: PERRL Neck & C-Spine Common normals: full ROM General: normal visual inspection Cervical spine: pain with cervical ROM and cervical spine tenderness Other: negative spurlings, negative radiculopathy Chest Common normals: inspection of chest normal Respiratory Common normals: normal respiratory effort, no retractions and no use of accessory muscles Extremity Right upper extremity: shoulder joint Other: right shoulder increased pain with overhead ROM, crossbody adduction. pain with posterior lift-off unable to attempt apleys scratch manuever due to pain. strength 5/5 in BUE Neuro Common normals: oriented x3 Sensorium/orientation: alert Psych Common normals: mental status grossly normal, thought process normal, cooperative, affect normal, speech normal and activity/motor behavior normal Speech: normal speech Thought process: normal thought process Results Additional Findings Additional findings: If on a controlled substance or opioids, I have checked an [place] report on this patient and there are no aberrancies noted in the prescribing history.??If on a controlled substance or opioid a drug screen was completed and reviewed within the last year, and if there has not been a drug screen completed we ordered one today to monitor higher risk, state monitored pain medication use. As part of providing excellent, safe, comprehensive care, the following was completed at our patient's visit: 1. A medication reconciliation and review to ensure accurate knowledge of current/active medications, including asking our patients to inform us about any gdqu-zwb-jvcrxoa medications or herbal remedies/nutritional supplements/alternative remedies. 2. A review to specifically ensure our patients have had annual screening for screening for depression, screening for tobacco use, and screening for unhealthy alcohol use. For concerning screenings had a discussion with the patient, provided patient education, and recommended follow-up with primary care provider when appropriate. If patient noted with a risk of falling, they received education on strength, gait, and balance training to prevent future risk of falling. Portions of this note may have been carried over from the previous visit and updated as appropriate. Please note this office utilizes paper charting in addition to the electronic medical record. A list of current medications, vitals, and PMH is available there as the clinical staff outside of myself do not have access to i[employer] charting during the clinic day operations. As part of providing quality comprehensive care the current medications, vitals, and PMH were reviewed in the paper chart. Assessment and Plan Assessment and Plan (1) Right shoulder pain: Qualifiers: Chronicity: chronic Qualified Code(s): M25.511 - Pain in right shoulder; G89.29 - Other chronic pain (2) Myofascial pain: (3) Thoracic spondylosis: (4) Tendinopathy of right rotator cuff: Plan The patient has had over 3 months of moderate to severe right shoulder pain with functional impairment and inadequate response to conservative care including NSAIDS (unless there are contraindication such as concurrent blood thinners), multiple oral or topical pain medications, and home exercise program/physical therapy.? Patient has completed >6 weeks of guided home exercise program and/or formal physical therapy program without relief of their symptoms.? I have reviewed the imaging of the right shoulder and no red flags were identified.? proceed with right suprascapular and axillary nerve block under fluoroscopy in consideration of rfa for right shoulder pain continue otc ibuprofen prn f/u after injection
== END 2025-05-02 13:40 | disposition home or self-care (01) ==
LOC: PM 13:39
PROVIDERS: Visit Provider Nurse Practitioner
DX: M25.511 Pain in right shoulder (principal); G89.29 Other chronic pain; M79.18 Myalgia, other site; M75.101 Unspecified rotator cuff tear or rupture of right shoulder, not specified as traumatic; M47.814 Spondylosis without myelopathy or radiculopathy, thoracic region
CPT/HCPCS: G0463

== ENCOUNTER 2025-05-13 10:31 | Day surgery (SDC) | payer MEDICARE, SELFPAY ==
[2025-05-13 10:52] VITALS: BP 169/96; PULSE 73; TEMP 36.9; O2SAT 99
[2025-05-13 11:42] VITALS: BP 185/110; PULSE 92; O2SAT 94
[2025-05-13 11:43] VITALS: BP 179/94; PULSE 92; O2SAT 94
[2025-05-13] MEDS: BUPIVACAINE HCL 0.25% PF 25 MG/10 ML VIAL INJ (11:44)
[2025-05-13] MEDS: METHYLPREDNISOLONE ACETATE 40 MG/ML VIAL INJ (11:44)
[2025-05-13] MEDS: LIDOCAINE HCL 2% 400 MG/20 ML MDV INJ (11:44)
--- NOTE | 2025-05-13 11:49 | W.PM.PROCNOT ---
Date of procedure: 05/13/25 Pre-op diagnosis: Pain due to right shoulder osteoarthritis Post-op diagnosis: same as pre-op Procedure: Procedure: Right suprascapular and axillary nerve block Medications: Bupivacaine 0.25% 3cc, depomedrol 40mg The patient was seen and examined in the preoperative holding area. Informed consent was obtained and placed on the chart.? The patient was brought to the medical procedure unit and placed in the prone position. A timeout was completed verifying correct patient, procedure site, positioning, plan, and special equipment.? Using aseptic technique, under direct fluoroscopic visualization, a 25-gauge 3-1/2 inch spinal needle was advanced to the superior portion of the right posterior osseous rim of the glenoid fossa, lateral and superior to the spinal glenoid notch.? 0.5 cc of the above solution was injected.? The needle was then redirected 3 mm inferiorly and another 0.5 cc of the above medication was injected.? This needle was then removed.? Using aseptic technique, under direct fluoroscopic visualization, another 25-gauge 3-1/2 inch spinal needle was advanced toward the most inferior and lateral border of the greater tubercle.? 0.5 cc of the above medication was administered.? The needle was then redirected 3 mm inferiorly.? 0.5 cc was administered in this region.? This needle was removed. ? The patient was taken to the postprocedural recovery area and monitored for an appropriate length of time before being found suitable for discharge in the accompaniment of a responsible adult.? Anesthesia: Local Surgeon: Willian Jensen Pathology: none sent Condition: stable Disposition: no change
== END 2025-05-13 11:52 | disposition home or self-care (01) ==
PROVIDERS: Visit Provider Anesthesiology
DX: M19.011 Primary osteoarthritis, right shoulder (principal); G89.29 Other chronic pain
CPT/HCPCS: 64417; 64418; J0665; J1010

== ENCOUNTER 2025-05-29 12:45 | Outpatient (OUT) | payer MEDICARE, SELFPAY ==
--- OUTSIDE RECORDS SUMMARY | 2024-05-01 08:45 | XMS_ITS ---
Author Organization [facility] Servic es Address [address] [place] [address] Care Team Providers Care Fireworks Assembly Supervisor Name Role Phone Radha Mcintosh Primary Care Provider KaufmanTemiGissell Unavailable [phone] REASON FOR VISIT 3 month f/u Encounters Encounter Location Date Provider Diagnosis [facility] [address] [place] [address] 05/01/2024 Radha Mcintosh Plan Of Treatment Next Appt Details Provider Name:Gissell Kaufman , 07/04/2025 02:20:00 PM, [address], [place], [address], Progress Notes * HERNAN TORIBIOB:1975 ([age] yo F)Acc No.[id number]:05/01/2024 Behavioral Health Patient: Brent NICOLE EMILY :?Radha McintoshDOB:1975???Age:49 Y???Sex:Female Date:05/01/2024hone:[phone]:[address] [place], [id number] Subjective: * Chief Complaints: * 3 month f/u * Electronic signature of MARIBEL Hobbs on 05/29/2025 at 12:48 PM ESTSign off status: Pending * Provider: Kaiden Mcintosh Date: 07/02/2023 Generated for Printing/Faxing/eTransmitting on:?05/29/2025 12:48 PM EST
--- OUTSIDE RECORDS SUMMARY | 2024-07-10 09:45 | XMS_ITS ---
Author Organization [facility] Servic es Address [address] [place] [address] Care Team Providers Care Set And Exhibit Designer Name Role Phone Radha Mcintosh Primary Care Provider MandeepTemiGissell Unavailable [phone] Dr. Bob Ureña Unavailable [phone] REASON FOR VISIT FILLING Encounters Encounter Location Date Provider Diagnosis [facility] [address] [place] [address] 07/10/2024 Bob Ureña Plan Of Treatment Next Appt Details Provider Name:Gissell Kaufman , 07/04/2025 02:20:00 PM, [address], [place], [address], Progress Notes * STEFANIEGalen HERNANB:1975 ([age] yo F)Acc No.[id number]:07/10/2024 Patient:?EMILY TORIBIO :?Bob Ureña DDSDOB:1975???Age:49 Y???Sex: FemaleDate:07/10/2024Phone:[phone]:[address], [address] [id number]:Radha Mcintosh Subjective: * Chief Complaints: * F ILLING Billing Information: * Procedure Codes: * Electronic signature of Dr. Bob Ureña , [facility], [id number] on 05/29/2025 at 12:48 PM ESTSign off status: Pending * Provider: Hugo Ureña DDS Date: 0 07/10/2024 Generated for Printing/Faxing/eTransmitting on:?05/29/2025 12:48 PM EST
--- OUTSIDE RECORDS SUMMARY | 2024-07-17 09:00 | XMS_ITS ---
Author Organization [facility] Servic es Address [address] [place] [address] Care Team Providers Care Machine Tracer Name Role Phone Radha Mcintosh Primary Care Provider [phone] MandeepTemiGissell Unavailable [phone] Dr. Bob Ureña Unavailable [phone] REASON FOR VISIT FILLING Encounters Encounter Location Date Provider Diagnosis [facility] [address] [place] [address] 07/17/2024 Bob Ureña Plan Of Treatment Next Appt Details Provider Name:Gissell Kaufman , 07/04/2025 02:20:00 PM, [address], [place], [address], Progress Notes * STEFANIEGalen HERNANB:1975 ([age] yo F)Acc No.[id number]:07/17/2024 Patient:?EMILY TORIBIO :?Bob Ureña DDSDOB:1975???Age:49 Y???Sex: FemaleDate:07/17/2024Phone:[phone]:[address], [address] [place] [id number]:Radha Mcintosh Subjective: * Chief Complaints: * F ILLING Billing Information: * Procedure Codes: * Electronic signature of Dr. Bob Ureña , [facility], [id number] on 05/29/2025 at 12:48 PM ESTSign off status: Pending * Provider: Hugo Ureña DDS Date: 0 07/17/2024 Generated for Printing/Faxing/eTransmitting on:?05/29/2025 12:48 PM EST
--- OUTSIDE RECORDS SUMMARY | 2024-09-28 05:30 | XMS_ITS ---
Author Organization [facility] Address [address] [place] [address] Care Team Providers Care Plumbing And Heating Mechanic Name Role Phone Radha Mcintosh Primary Care Provider MandeepTemiGissell Unavailable [phone] Dr. Bob Ureña Unavailable [phone] REASON FOR VISIT fill Encounters Encounter Location Date Provider Diagnosis [facility] [address] [place] [address] 09/28/2024 Bob Ureña Plan Of Treatment Next Appt Details Provider Name:Gissell Kaufman , 07/04/2025 02:20:00 PM, [address], [place], [address], Progress Notes * STEFANIEGalen HENRANB:1975 ([age] yo F)Acc No.[id number]:09/28/2024 Patient:?EMILY TORIBIO :?Bob Ureña DDSDOB:1975???Age:49 Y???Sex: FemaleDate:09/28/2024Phone:[phone]:[address], [address] [id number]:Radha Mcintosh Subjective: * Chief Complaints: * F ill Billing Information: * Procedure Codes: * Electronic signature of Dr. Bob Ureña , [facility], [id number] on 05/29/2025 at 12:48 PM ESTSign off status: Pending * Provider: Hugo Ureña DDS Date: 0 09/28/2024 Generated for Printing/Faxing/eTransmitting on:?05/29/2025 12:48 PM EST
--- OUTSIDE RECORDS SUMMARY | 2024-10-08 09:45 | XMS_ITS ---
Author Organization [facility] Address [address] [place] [address] Care Team Providers Care Live Truck Operator Name Role Phone Radha Mcintosh Primary Care Provider [phone] Temi Kaufmanrina Unavailable [phone] REASON FOR VISIT 3 month f/u Encounters Encounter Location Date Provider Diagnosis [facility] [address] [place] [address] 10/08/2024 Radha Mcintosh Plan Of Treatment Next Appt Details Provider Name:Gissell Kaufman , 07/04/2025 02:20:00 PM, [address], [place], [address], Progress Notes * HERNAN TORIBIOB:1975 ([age] yo F)Acc No.[id number]:10/08/2024 Behavioral Health Patient: Brent NICOLE EMILY :?Radha McintoshDOB:1975???Age:49 Y???Sex:Female Date:10/08/2024Phone:[phone]:[address], [id number] Subjective: * Chief Complaints: * 3 month f/u * Electronic signature of MARIBEL Hobbs on 05/29/2025 at 12:48 PM ESTSign off status: Pending * Provider: Kaiden Mcintosh Date: 0 10/08/2024 Generated for Printing/Faxing/eTransmitting on:?05/29/2025 12:48 PM EST
--- OUTSIDE RECORDS SUMMARY | 2025-02-21 05:35 | XMS_ITS ---
Author Organization [facility] Servic es Address [address] [place] [address] Care Team Providers Care Teller Supervisor Name Role Phone Radha Mcintosh Primary Care Provider [phone] Gissell Kaufman Unavailable [phone] Dr. Bob Ureña Unavailable [phone] REASON FOR VISIT FILLING #17- $100 DUE TODAY SFS LVL 2 Encounters Encounter Location Date Provider Diagnosis [facility] [address] [place] [address] 2024 Bob Ureña Plan Of Treatment Next Appt Details Provider Name:Gissell Kaufman , 07/04/2025 02:20:00 PM, [address], [place], [address], Progress Notes * STEFANIEGalenHERNANB:1975 ([age] yo F)Acc No.[id number]:02/21/2025 Patient:?EMILY TORIBIO :?Bob Ureña DDSDOB:1975???Age:49 Y???Sex: FemaleDate:02/21/2025Phone:[phone]:[address], [place], [id number]:Radha Mcintosh Subjective: * Chief Complaints: * F ILLING #17- $100 DUE TODAY SFS LVL 2 * Electronic signature of Dr. Bob Ureña , DMD, [id number] on 05/29/2025 at 12:48 PM ESTSign off status: Pending * Provider: Hugo Ureña DDS Date: 0 02/21/2025 Generated for Printing/Faxing/eTransmitting on:?05/29/2025 12:48 PM EST
--- OUTSIDE RECORDS SUMMARY | 2025-05-29 12:48 | XMS_ITS | Clinical Summary ---
Author Organization [facility] Address [address] [facility] [place] [address] Care Team Providers Care Drill Hand Name Role Phone Damian Lakhani MD Unavailable [phone] Source Comments The following information is NOT included in Care Everywhere downloads:Psychiatric notes, ECG results, Cardiac Rehab notes, Pulmonary Function notes, data from [employer] (includes but not limited toPregnancy data,audiograms, eye exams, pre-surgical evaluation notes, well-child exam data).[facility] Allergies No known active allergies Medications MedicationSigDispense QuantityRefillsLast FilledStart DateEnd DateStatus tramadol (ULTRAM) 50 MG tablet Take 2 tablets by mouth 2 times per day as needed for Spondylosis without uxxqfdjnep44/16/2023ctive temazepam (RESTORIL) 30 MG capsule TAKE 1 CAPSULE BY MOUTH ONCE A DAY (AT BEDTIME) NEEDED FOR SLEEP 30 DAY FGLHES9907/27/2022ctive Multiple Vitamin (Multi Vitamin Daily) TABS Take [...] InformationValueDate RecordedSex Assigned at BirthNot on fileLegal MesWhjinn53/23/2023 11:52 AM ESTGender IdentityNot on fileSexual OrientationNot on file Plan of Treatment Health MaintenanceDue DateLast RpgzHxrnwrfsXvmuwqgnjgk1977HIV Test 1992Hepatitis C Wqkmqfvk07/11/1995Tdap Vjzvice8404/09/1995Hepatitis A (HAV) Vaccine (optional start 19+ years)1996Hepatitis B (HBV) Vaccine (1 of 3 - 19+ 3-dose series)1996Pap Smear1998Annual Wellness Visit (G0438) 11/28/20155246Vdcfqsgclcy14/11/2017CRC Vqkpzkpva30/11/2022Cologuard (Stool DNA) 2022FIT2COVID-19 Vaccine ( - 2024- season)2025Influenza Vaccine (#1)2025Shingles (RZV) Vaccine (1 of 2)2027Cholesterol 3Pneumococcal Vaccine(s)Aged OutNo longer eligible based on patient's age to complete this topic Insurance * Guarantor: Jamila Pickard TypeRelation to PatientDate of BirthPhoneBilling AddressPersonal/FzdmowCpba[address] [place] [address] Care Teams Team MemberRelationshipSpecialtyStart DateEnd Damian Lakhani MD [address] [place] [id number] PhysicianOrthopaedic Surgery10/02/22
--- OUTSIDE RECORDS SUMMARY | 2025-05-29 12:48 | XMS_ITS | Clinical Summary ---
Author Organization [facility] Address [address] [place] [address] Care Team Providers Care Paunch Trimmer Name Role Phone Diony Sharma MD Primary Care Provider [phone] Kenyetta Dove MD Unavailable [phone] Simón Ozuna MD Unavailable [phone] Amanda Montiel MD Unavailable [phone] Krish Hodge MD Unavailable [phone] Beny Hoskins MD Unavailable [phone] Allergies No known active allergies Medications MedicationSigDispense QuantityRefillsLast FilledStart DateEnd DateStatus B Cyidqon-Wrlcfp-PS (Super Quints B-50) tablet Take by mouthActive [...] to rosacea for 8 weeks. 45 g 6Active Additional Information Patient taking differently: 1 application Daily PRN, Apply twice daily to rosacea for 8 weeks., Reported on 05/08/2025 losartan-hydroCHLOROthiazide (Hyzaar) 100-12.5 MG tablet Take 1 tablet by mouth DailyActive HYDROcodone-acetaminophen ([place]) 5-325 MG tablet Indications:Acute pain of left kneeTake 1-2 tablets by mouth every 6 (six) hours if needed for severe pain 42 tablet 5Active Additional Information Patient not taking.Reported on 05/08/2025 liothyronine (Cytomel) 5 MCG tablet Indications:Postoperative hypothyroidismTake 1 tablet (5 mcg) by mouth Daily 90 tablet /6Active levothyroxine (Synthroid, Levoxyl) 125 MCG tablet Indications:Postoperative hypothyroidismTake 1 tablet (125 mcg) by mouth Daily 90 tablet /ctive nystatin (Mycostatin) ointment Indications:Acute vaginitisAPPLY a thin film TOPICALLY 2 TIMES A DAY to affected area NEEDED for irritation 30 g 5Active nystatin (Mycostatin) ointment Indications:Acute vaginitisAPPLY a thin film TOPICALLY 2 TIMES A DAY to affected area NEEDED for irritation 30 g Discontinued valACYclovir (Valtrex) 1 g tablet Indications:Herpes zoster without complicationTake 1 tablet (1,000 mg) by mouth in the morning and 1 tablet (1,000 mg) before bedtime. Do all this for 7 days. 14 tablet Expired Active Problems ProblemNoted DateDiagnosed DateSleep apnea05/08/2025Renal cyst, right12/20/2024 Overview (12/20/2024): [address] abd/pelvis 11/2024 Tcjqhrjgsbcj70/24/2025Pulmonary ldwehromnfjr37/13/2025Menopausal state08/15/2024 Iron deficiency yfxchw3908/04/2024Nonscarring hair loss, gynykpoqjai91/23/2024 Acquired absence of uterus with remaining cervical stump02/20/2024Vitamin D odxijpgypk19/27/2024cquired cqnhjeyweztzhs12/27/2024Irritable bowel syndrome with /27/2024Urinary yarsuzhvd87/27/2024Mixed stress and urge urinary rqajlgesrvwq32/27/9419Zkgnqmvxuhrf19/27/2024rimary osteoarthritis involving multiple vdruca3501/24/2024GAD (generalized anxiety disorder)01/24/2024 Moderate major cvvoalpnns98/27/2024Essential clkooezreadi78/27/2024History of oqcfqw9101/24/2024hronic bilateral thoracic back pain01/24/2024 Encounters DateTypeDepartmentCare KgvgTgzpqnwnmjo81/30/2025Refill [facility] [place] [facility] [address] [place] [address] Amanda Montiel MD Acute xvpucchcy27/12/2025Orders Only [facility] [address] [place] [address] Chaz Carrillo MD 05/08/2025 10:45 AM ESTOffice Visit [facility] [address] [place] [address] Diony Sharma MD Cervical radiculopathy (Primary Dx); Right shoulder pain, unspecified chronicity; Need for immunization against xenpvkquq26/10/8580Ddmbmg76/18/2025Refill [facility] [place] [facility] [address] [place] [address] Amanda Montiel MD Acute igejpoevj45/06/2025Refill [facility] [place] [facility] [address] [place] [address] Ashley Araya LPN Bacterial vaginitisfrom Last 3 Months Immunizations ImmunizationAdministration DatesNext DrqMKJ8108/01/1979,04/18/1979,05/13/1978DTaP, Hcxyeskyqln41/14/1980Hep B, adult06/05/2001,12/28/2000,11/14/2000IPV10/11/1979, 08/01/1979,05/13/1978,1977Influenza, Madin Madeline Canine Kidney, subunit, trivalent, injectable, contains opbfeysokgqh50/10/1396FJH4911/21/2000,01/07/1983 Family History Medical HistoryRelationNameCommentsHeart diseaseBrotherx 3LymphomaMaternal GrandmotherDepressionMotherDiabetes type IIMotherHypertensionMotherBreast cancer Paternal GrandmotherMental illnessSonx 2RelationNameStatusCommentsBrotherx 3 AliveDaughterx 2AliveFatherAliveMaternal GrandmotherMotherAlivePaternal GrandmotherSisterx 1AliveSonx 2Alive Social History Tobacco UseTypesPacks/DayYears UsedDateSmoking Tobacco: FormerCigarettes0.532 05/30/1991 - 05/30/2023Smokeless Tobacco: Never Tobacco Cessation:Counseling Given: Not Answered Comments:Pt smoked 1/2 ppd since age 17 years old. Alcohol UseStandard Drinks/WeekCommentsNever0 (1 standard drink = 0.6 oz pure alcohol)PHQ-2AnswerDate RecordedPatient Health Questionnaire-2 Lzpas253 CommentsUnknownSex and Gender InformationValueDate RecordedSex Assigned at BirthNot on fileLegal AotMbmqti67/15/2023 7:12 PM EDTGender IdentityNot on fileSexual OrientationNot on fileOccupationIndustryJob Start DateJob End Date disabledNot on fileNot on fileNot on file Last Filed Vital Signs Vital SignReadingTime TakenCommentsBlood Ldocssce062/8805/08/2025 10:57 AM EST Hhtal263105/08/2025 10:57 AM ESTTemperature--Respiratory Bjes915902/12/2025 11:06 AM EDTOxygen Wvqknimktu09%05/08/2025 10:57 AM ESTInhaled Oxygen Concentration-- Wxwpij700 kg (340 lb 4.8 oz)05/08/2025 10:57 AM AJIXxmpfy911.2 cm (5' 7 ) 05/08/2025 10:57 AM ESTBody Mass Index53. 10:57 AM EST Plan of Treatment DateTypeDepartmentCare Team (Latest Contact Info)Viwmcfuvbuq89/11/2026 10:45 AM EDTOffice Visit [facility] [address] [place] [address] 02/11/2026 11:00 AM EDTOffice Visit [facility] [address] [place] [address] Kenyetta Dove MD [address] [place] [address] Health MaintenanceDue DateLast DoneCommentsCT Tyjwkmoyemju1977Colonoscopy 1977Colorectal Cancer Sydexhaus1977FIT-DNA1977FIT1977 FOBT1977 3327Romgovioykmbk1977Pap SmearMedicare Annual Wellness (AWV)/06/2024, 12/13/2024, 12/31/2021Mammogram , 01/20/2024, 12/29/2022ervical Cancer Uonbywtsa04/02/2030 HPV/Jjnaat77, 11/07/2018Influenza AzoygozDioqfedjc07/10/2025 Pneumococcal Vaccine: Pediatrics (0 to 5 Years) and At-Risk Patients (6 to 64 Years)Aged OutNo longer eligible based on patient's age to complete this topic Procedures Procedure NamePriorityDate/TimeAssociated DiagnosisCommentsBI MAMMOGRAM SCREENING TOMOSYNTHESIS BZTTSAEFF91/16/2025 9:28 AM EDT IGP, APT HPV,RFX 16/18,02Czfnjav31/02/2025 12:00 AM EDT Encounter for gynecological examination without abnormal finding Encounter for screening for cervical cancer from Last 3 Months or Most Recently Relevant to Health Maintenance Results * Bilateral screening mammogram with tomosynthesis [...] ? Dictated By: ?Larry Perez MD ? 02/12/25927 ? Signed By: <Electronically signed by Larry Perez MD in OV> ? 02/12/25 0955 Narrative 02/12/2025 9:57 AM EDT [facility] ?[address] ?[place] [address] ?? [phone] ? Mammography Report ? Signed ? Patient: Alley,Lupe M ?MR#: [id number] ? : 1975 ?Acct:[id number] ? Age/Sex: 49 / F ?Adm Date: 02/11/ ? Loc: [place] ?Room: ?Type: DEP CLI ?? Attending Dr: Referral Self ? Ordering Provider: SELF,REFERRAL ? Date of Service: 02/11/ ? Procedure(s): MM screening mammo BI w/CAD ?? Accession Number(s): ([id number]) MM/MM screening mammo BI w/CAD: SCREENING ? [...] ?? Procedure Note Radiology, Radiologist, - 02/12/2025 [facility] [place] [address] Mammography Report Signed Patient: Lupe Pickard MMR#: [id number] : 1975Acct:[id number] Age/Sex: 49 / FAdm Date: 02/11/25 Loc: OR Room:Type: [facility] Attending Dr: Referral Self Ordering Provider: SELF,REFERRAL Date of Service: 02/11/25 Procedure(s): MM screening mammo BI w/CAD Accession Number(s): ([id number]) MM/MM screening mammo BI w/CAD:SCREENING Copies to: [...] External Data ProviderIMG BI PROCEDURESFinal Result * IGP, APT HPV,RFX 16/18,45 (01/29/2025 12:00 AM EDT)ComponentValueRef RangeTest MethodAnalysis TimePerformed AtPathologist SignatureDiagnosis:CommentLABCORP Comment:NEGATIVE FOR INTRAEPITHELIAL LESION OR MALIGNANCY.Specimen Adequacy: CommentLABCORPComment:Satisfactory for evaluation. No endocervical component is identified.Clinician Provided ICD10:CommentLABCORPComment: Z01.419 Z12.4 Performed By:CommentLABCORPComment:Keisha Olivo, Printing Table Worker ([facility])Cyto Comments .LABCORPNote:CommentLABCORPComment: The Pap smear is a [...] 5:07 PM EDT Performed at: 01 - [facility] [place] [address] [place], [address] ??[id number] Neurosurgeon: Laila Connelly MD, Phone: ??[phone] Performed at: ??02 - [facility] [place] [address] [place], [address] ??[id number] Neurosurgeon: Laila Connelly MD, Phone: ??[phone] Specimen Comment: No. of containers..01 ThinPrep Vial Authorizing ProviderResult TypeResult StatusAmanda Montiel MDLAB BLOOD ORDERABLESFinal ResultPerforming OrganizationAddressCity/State/ZIP CodePhone Number [facility] from Last 3 Months or Most Recently Relevant to Health [place] [address] Care Teams Team MemberRelationshipSpecialtyStart DateEnd Diony Sharma MD [address] [place] [address] PCP - GeneralInternal Medicine01/24/24 Kenyetta Dove MD [address] [place] [address] Referring PhysicianEndocrinology08/01/24 Simón Ozuna MD [address] [place] [address] Referring PhysicianUrology08/01/24 Amanda Montiel MD [address] [place] [address] Obstetrics and Gynecology08/01/24 Krish Hodge MD [address] [place] [address] Referring PhysicianOphthalmology08/01/24 Beny Hoskins MD [address] [place] [address] [address] [place] [address] Referring PhysicianGastroenterology08/01/24 Family [facility] Mental [facility] 08/01/24
--- OUTSIDE RECORDS SUMMARY | 2025-05-29 12:48 | XMS_ITS | Patient Health Record ---
Author Organization [facility] Address [address] [place] [address] Care Team Providers Care Hospice Community Liaison Name Role Phone Radha Mcintosh Primary Care Provider Gissell Kaufman Unavailable [phone] Dr. Bob Ureña Unavailable [phone] Allergies No Known Allergies Reason For Referral [...] Orally every 6 hours as needed for ohdqxca2403/04/2023ctiveMagnesium Oxide 400 MG Tablet1 tablet Orally twice [...] yourself in some way Not at allTotal Vunpt5RnsogxsapcvolRfjl DepressionTobacco Screen:Are you a: former smoker? How long has it been since you last smoked?1-3 monthsAlcohol Screening:Did you have a drink containing alcohol in the past year?NoPoints0 InterpretationNegative Problems Problem Type SNOMED Code ICD Code Onset Dates Problem Status W/U Status Risk Notes Problem Generalized anxiety disorder (75478107) Generalized Anxiety Disorder (SANDRA) (F41.1) ActiveconfirmedProblemBody mass index 40+ - morbidly obese (999114328)BMI 40.0- 44.9, adult (Z68.41)ActiveconfirmedProblemDepressive disorder (48230193) Unspecified Depressive Disorder (F32.9)ActiveconfirmedProblemPost traumatic stress disorder (06917894)Post traumatic stress disorder (F43.10)Activeconfirmed Vital Signs Heart Rate 88 /min 10/24/2024 Htcznwzm31 %10/24/2024lood pressure yxjzigyvi29 mm Hg10/24/20249599Bkledp97.5 in 10/24/2024lood pressure bsjxfyra233 mm Hg10/24/20248930Jirebh000.0 lbs10/24/2024MI 47.37 kg/m210/24/2024 Encounters Encounter Location Date Provider Diagnosis [facility] [address] [place] [address] 06/25/2024 Radha Cox Generalized Anxiety Disorder (SANDRA) F41.1 [facility] [address] [place] [address] 01/09/2025 Radha Mcintosh Generalized Anxiety Disorder (SANDRA) F41.1 [facility] [address] [place] [address] 11/01/2024 Gissell Kaufman Acute gingivitis, plaque induced K05.00 [facility] [address] [place] [address] 10/24/2024 Radha Mcintosh Generalized Anxiety Disorder (SANDRA) F41.1 and Post traumatic stress disorder F43.10 [facility] [address] [place] [address] 07/18/2024 Radha Mcintosh Generalized Anxiety Disorder (SANDRA) F41.1 ; Unspecified Depressive Disorder F32.9 and Post traumatic stress disorder F43.10 [facility] [address] [place] [address] 01/16/2025 Radha Mcintosh Generalized Anxiety Disorder (SANDRA) [...] - K05.00)01/09/2025Generalized Anxiety Disorder (SANDRA) (ICD-10 - F41.1)06/25/2024Generalized Anxiety Disorder (SANDRA) (ICD-10 - F41.1)07/18/2024 Generalized Anxiety Disorder (SANDRA) (ICD-10 - F41.1) [...] , 07/04/2025 02:20:00 PM, [address], [place], [address], Insurance Providers Payer Name Payer Address Payer Phone Subscriber Number Group Number Insured Name Patient Relationship to Insured Coverage Start Date Coverage End Date MEDICARE CGS 1 [address] [facility] [place] [address] [id number] Leroy TORIBIO - patient is the [id number] 2020MEDICAID SEC TO [address] [place] [id number], LISASelf - patient is the [id number] 2020DENTAL MEDICAID [facility] [address] [place] [address] [phone], LISASelf - patient is the [id number] 2019 MEDICAID SEC TO [facility] [address] [place] [id number] Leroy TORIBIO - patient is the [id number] 2020 Medical (General) History Medical History History ICD Code Fibromyalgia AnxietyDepressionIBS-CHypothyroidChronic insomniaGERDChronic pain bilateral lower back painVitamin D DeficiencyOveractive bladderLyme DiseaseSurgical History Surgery Date(Month/Year) X4 Tkauqifeystl77/01/2015Nerve ablations from bulging uewoYqybvgsaelvcj52/01/2018 Hospitalization History Reason Date(Month/Year) see surgical
--- OUTSIDE RECORDS SUMMARY | 2025-05-29 12:48 | XMS_ITS | Encounter Summary ---
Author Organization [facility] Address [address] [place] [address] Care Team Providers Care Retail Sales Professional Name Role Phone Diony Sharma MD Primary Care Provider [phone] Kenyetta Dove MD Unavailable [phone] Simón Ozuna MD Unavailable [phone] Amanda Montiel MD Unavailable [phone] Krish Hodge MD Unavailable [phone] Beny Hoskins MD Unavailable [phone] Reason for Visit * ReasonCommentsMed Refill Encounter Details DateTypeDepartmentCare Team (Latest Contact Info)Jqfahuuwheq94/30/2025Refill [facility] [place] [facility] [address] [place] [address] Amanda Montiel MD [address] [facility] [address] [place] [address] Acute vaginitis Social History Tobacco UseTypesPacks/DayYears UsedDateSmoking Tobacco: FormerCigarettes0.532 05/30/1991 - 05/30/2023Smokeless Tobacco: Never Comments:Pt smoked 1/2 ppd s chata age [age] years old. Alcohol UseStandard Drinks/WeekCommentsNever0 (1 standard drink = 0.6 oz pure alcohol)PHQ-2AnswerDate RecordedPatient Health Questionnaire-2 Jlahp126 CommentsUnknownSex and Gender InformationValueDate RecordedSex Assigned at BirthNot on fileLegal MsuTbvdfp37/15/2023 7:12 PM EDTGender IdentityNot on fileSexual OrientationNot on fileOccupationIndustryJob Start DateJob End Date disabledNot on fileNot on fileNot on filedocumented as of this encounter Plan of Treatment DateTypeDepartmentCare Team (Latest Contact Info)Gyixebwpgcf68/11/2026 10:45 AM EDTOffice Visit [facility] [place] [facility] [address] [place] [address] 02/11/2026 11:00 AM EDTOffice Visit [facility] [address] [place] [address] Kenyetta Dove MD [address] [place] [address] documented as of this encounter Visit Diagnoses Diagnosis Acute vaginitis Unspecified vaginitis and vulvovaginitis documented in this encounter Care Teams Team MemberRelationshipSpecialtyStart DateEnd Diony Sharma MD [address] [place] [address] PCP - GeneralInternal Medicine01/24/24 Kenyetta Dove MD [address] [place] [address] Referring PhysicianEndocrinology08/01/24 Simón Ozuna MD [address] [place] [address] Referring PhysicianUrology08/01/24 Amanda Montiel MD [address] [place] [address] Obstetrics and Gynecology08/01/24 Krish Hodge MD [address] [place] [address] Referring PhysicianOphthalmology08/01/24 Beny Hosikns MD [address] [place] [address] Referring PhysicianGastroenterology08/01/24 [facility] 08/01/24documented as of this encounter
--- OUTSIDE RECORDS SUMMARY | 2025-05-29 12:48 | XMS_ITS | Encounter Summary ---
Author Organization [facility] Address [address] [place] [address] Phone Care Team Providers Care Tank Builder Name Role Phone Simón Davidson DO Primary Care Provider [phone] Encounter Details DateTypeDepartmentCare Team (Latest Contact Info)Erdgjjhioec1977Scanned Document [facility] [address] [place] [address] Scanning, Generic Provider Social History Tobacco UseTypesPacks/DayYears UsedDateSmoking Tobacco: Never Assessed CommentsUnknownSex and Gender InformationValueDate RecordedSex Assigned at Not on fileLegal UemUtbyhp75/26/2022 12:23 AM ESTGender IdentityNot on file Sexual [...]
--- OUTSIDE RECORDS SUMMARY | 2025-05-29 12:49 | XMS_ITS | Clinical Summary ---
Author Organization [facility] Address [address] [place] [address] Phone Care Team Providers Care Binding Cutter Synthetic Cloth Name Role Phone Simón Davidson Primary Care Provider [phone] Medications MedicationSigDispense QuantityRefillsLast FilledStart DateEnd DateStatus ALPRAZolam [...] DateDiagnosed DateAnomalous optic nerve04/19/2023Hypertropia of right eye04/19/2023Vertical xegoqyyg42/21/5040Mgoqjuz65/21/2023trial nazlzsclkex50/21/2023hest pain04/19/20234474Mewezhbjrtutac54/21/2023alpitations 04/19/2023VC (premature ventricular contraction)04/19/2023Shortness of breath 04/19/2023Vitamin D ogwjtfevoq37/21/2023 Family History Medical HistoryRelationNameCommentsNo Known ProblemsFatherNo Known Problems MotherRelationNameStatusCommentsFatherMother Social History Tobacco UseTypesPacks/DayYears UsedDateSmoking Tobacco: FormerCigarettes Tobacco Cessation:Counseling Given: Not Answered Alcohol UseStandard Drinks/WeekCommentsYes0 (1 standard drink = 0.6 oz pure alcohol)sociallyCommentsUnknownSex and Gender InformationValueDate RecordedSex Assigned at BirthNot on fileLegal FurHyydro97/26/2022 12:23 AM EST Gender IdentityNot on fileSexual OrientationNot on file Last Filed Vital Signs Vital SignReadingTime TakenCommentsBlood Tnboynel014/8007 8:50 AM EDT Ktkyu2684/12/2023 8:50 AM EDTTemperature--Respiratory Rate--Oxygen Saturation-- Inhaled Oxygen Concentration--Lieatd638 kg (270 lb)12/08/2022 8:50 AM EDTHeight 170.2 cm (5' 7 )12/08/2022 8:50 AM EDTBody Mass Index42.29012/08/2022 8:50 AM EDT Plan of Treatment Health MaintenanceDue DateLast DoneCommentsCT Cbouoflatheb1977Colonoscopy 1977Colorectal Cancer Tsbztohue1977FIT-DNA (Cologuard)1977FIT 1977HIV Bqnfbrllv1977Lipid Panel1977Medicare Annual Wellness Visit (AWV)1977 7768Pewohfgvmdckp1977TSH Level1977MMR Vaccines (1 of 1 - Standard series)1978Hepatitis C Ukrheyvwr00/11/1995Hepatitis B Vaccines (1 of 3 - 19+ 3-dose series)1996Cervical Cancer Screening 1998HPV/Zgqlfr7304/09/1998Pap Smear1998DTaP/Tdap/Td Vaccines (1 - Tdap)04/09/19996744Oehbatvtq49/11/2017COVID-19 Vaccine (1 - season) 2025Influenza Vaccine (#1)2025Zoster Vaccines (1 of 2)2027HIB VaccinesAged OutNo longer [...] Insurance Care Teams Team MemberRelationshipSpecialtyStart DateEnd Date Siómn Davidson DO [facility]10/21/17
--- OUTSIDE RECORDS SUMMARY | 2025-05-29 12:49 | XMS_ITS | Clinical Summary ---
Author Organization [facility] Address [address] [place] [id number] Care Team Providers Care [employer] Name Role Phone Simón Davidson DO Unavailable [phone] Allergies No known active allergies Medications MedicationSigDispense QuantityRefillsLast FilledStart DateEnd DateStatus Glucosamine-Chondroitin 500-400 mg tablet Take 1 tablet by mouth three times daily.Active FE FUMARATE/CA CARB/VITAMIN D3 (UTQBVQB-VGWO7-ZAOWPRY FUMARATE ORAL) Take by mouth.Active Multivitamin capsule [...] MOUTH 2 TIMES A DAY NEEDED FOR OKQWWIN6305/03/2023ctive temazepam (RESTORIL) 30 mg cap TAKE 1 CAPSULE BY MOUTH ONCE A DAY (AT BEDTIME) NEEDED FOR SLEEP 30 DAY EGTTSR1707/27/2022ctive vit B-comp w-Fe,Ca,FA<1mg (IRON-VITAMINS ORAL) Take by mouth.Active melatonin 10 mg tab Take by mouth.Active Active Problems ProblemNoted DateDiagnosed DateChronic pain01/18/2014DepressionArthritis FibromyalgiaNeck painBack painHypothyroidIrritable bowel syndrome Family History Medical HistoryRelationCommentsALCOHOLIC [Other]FatherCancerMaternal Grandmother DEPRESSION [Other]Motherparkinsons [Other]Paternal GrandfatherCancerPaternal GrandmotherRelationStatusCommentsFatherMaternal GrandmotherMotherPaternal GrandfatherPaternal Grandmother Social History Tobacco UseTypesPacks/DayYears UsedDateSmoking Tobacco: RubufzFytcanogol7Benr: 07/30/2011 Tobacco Cessation:Counseling Given: Not Answered Alcohol UseStandard Drinks/WeekCommentsNo0 (1 standard drink = 0.6 oz pure alcohol)sociallyArea Deprivation IndexAnswerDate RecordedNational Score (1-100), lower number is lower dehb012005/17/2023State Score (1-10), lower number is lower mpgt0763Data from: https://www.neighborhoodatlas.medicine.[facility].edu/. Last address used for [address] [facility]3CommentsNo Sex and Gender InformationValueDate RecordedSex Assigned at BirthNot on file Legal NskQfgoda34/12/2013 1:57 PM EDTGender IdentityNot on fileSexual OrientationNot on fileOccupationIndustryJob Start DateJob End DateunemployedNot on fileNot on fileNot on file Last Filed Vital Signs Vital SignReadingTime TakenCommentsBlood Pqhmxaqt241/8105/17/2023 2:01 PM EST Qbton249005/17/2023 2:01 PM ESTTemperature--Respiratory Tgiy253407/18/2022 2:01 PM ESTOxygen Hcpuqttvah38%05/17/2023 2:01 PM ESTInhaled Oxygen Concentration-- Dutebd657.8 kg (268 lb 8.3 oz)05/17/2023 2:01 PM VDOOjevfa762.2 cm (5' 7 ) 01/18/2014 2:26 PM EDTBody Mass Index42.0601/18/2014 2:26 PM EDT Plan of Treatment Health MaintenanceDue DateLast DoneCommentsDTaP,Tdap,Td Vaccine (4 - Tdap) , 08/01/1979, 04/18/1979, Additional history existsAnnual PCP Team Chronic Disease Visit1995Anxiety Epgzulhoq69/11/1995HIV Screening 1995Hepatitis C Aaavhihyg18/11/1995Cervical Cancer Mwokdlofz72/11/1998 Medicare Annual Wellness Visit08/28/2013CT Futyxnwbnwom32/11/2022ologuard (FIT-DNA)04/09/20229438Epkrrzzwfrh81/11/2022olorectal Cancer Etpuvxeca26/11/2022 Fecal Occult Blood2022Lipid Twrotauvn56/11/5323Gvwvhehbxzqaa43/11/2022 Mammogram Wtpjhmkoe03ovid-19 Vaccine ( season) 2025Influenza Vaccine (#1)2025Diabetes Zrqnlugjm45 Hepatitis B OojucjxSxatpmkry36/07/2002, 12/28/2000, 11/14/2000 Procedures Procedure NamePriorityDate/TimeAssociated DiagnosisCommentsCOMPREHENSIVE METABOLIC LXUVWFqacjty31/21/2023 8:07 AM EST Positive WILL (antinuclear antibody) from Last 3 Months or Most Recently Relevant to Health Maintenance Results * (ABNORMAL) COMP METABOLIC PANEL (05/19/2023 8:07 AM EST)ComponentValueRef RangeTest MethodAnalysis TimePerformed AtPathologist SignatureProtein, Total 6.76.3 - 8.0 g/dL05/19/2023 8:43 AM [facility] Albumin4.13.9 - 4.9 g/dL05/19/2023 8:43 AM EST[facility] LABCalcium, Total9.28.5 - 10.2 mg/dL05/19/2023 8:43 AM EST[facility] LABBilirubin, Total0.20.2 - 1.3 mg/dL05/19/2023 8:43 AM ESTNOR[facility] LABAlkaline Ltaiuruxmjm8569 - 123 U/L 05/19/2023 8:43 AM [facility] ZCDUGH88(L)13 - 35 U/L 05/19/2023 8:43 AM [facility] FRTLJG294 - 38 U/L 05/19/2023 8:43 AM [facility] APREztzpsi409(H)74 - 99 mg/dL05/19/2023 8:43 AM [facility] LABComment: The [place] Diabetes Association (ADA) provides guidance [...] 2016, French Diabetes Association. Diabetes Care. 2016.39(Suppl 1). ROZ476 - 21 mg/dL05/19/2023 8:43 AM [facility] Creatinine0.650.58 - 0.96 mg/dL05/19/2023 8:43 AM [facility] FFCInqyqq550353 - 144 mmol/L107/20/2022 8:43 AM [facility] LABPotassium4.33.7 - 5.1 mmol/L107/20/2022 8:43 AM [facility] TVQPnhndmyd762(H)97 - 105 mmol/L107/20/2022 8:43 AM [facility] QPVDG17517 - 30 mmol/L107/20/2022 8:43 AM [facility] LABAnion Gap99 - 18 mmol/L107/20/2022 8:43 AM [facility] LABEstimated Glomerular Filtration Bymi520 >=60 mL/min/1.73m 05/19/2023 8:43 AM [facility] LABComment:Estimated Glomerular Filtration Rate (eGFR) is calculated [...] VolumeCollection TimeReceived TimeBloodBLOOD SPECIMEN / UnknownVenipuncture / Eqaozbz4405/19/2023 8:07 AM EST05/19/2023 8:08 AM EST Narrative Authorizing ProviderResult TypeResult StatusRupal Myles Brambila MDLABORATORY Final ResultPerforming OrganizationAddressCity/State/ZIP CodePhone Number [facility] [address] [place] [address] from Last 3 Months or Most Recently Relevant to Health Maintenance Insurance Care Teams Team MemberRelationshipSpecialtyStart DateEnd Date Simón Davidson DO [facility]11/22/22
--- NOTE | 2025-05-29 12:59 | PM.CN ---
Consult Note: HPI Data of Consult Patient: known to practice within the last 3 years Consult date: 05/29/25 Requesting Physician: Brielle Dominguez NP Primary Care Provider: Non-Staff Physician, MD Consult Narrative Reason for consult: right shoulder/upper back pain Narrative: Lupe Pickard a 50 year old female with chronic back pain as well as right shoulder pain unresponsive to > 6 weeks of PT/HEP, heat, ice, tylenol, NSAIDs presents for evaluation. pt status post bilateral thoracic T7/8 T9/10 facet RFA with mild to moderate relief. noting significant right shoulder pain, previously was evaluated by orthopedics who offered surgical intervention per pt however she would like to delay. no prior records available for review. Pt notes pain 4/10 increasing with twisting, pushing, pulling, bending, and activity. recently underwent right suprascapular/axillary nerve block with at least 80% improvement for 10 days, notes preop pain up to 10/10 post op pain 2/10. utilizing ibuprofen prn. cc:: CC: Brielle Dominguez NP Review of Systems ROS Musculoskeletal Reports: extremity pain PFSH PFSH Medical History Lumbago ?M54.50 - Low back pain, unspecified (ICD-10) Thoracic spondylosis ?M47.814 - Spondylosis without myelopathy or radiculopathy, thoracic region (ICD-10) Muscle spasm ?M62.838 - Other muscle spasm (ICD-10) Thoracic neuritis ?M54.14 - Radiculopathy, thoracic region (ICD-10) Chronic pain syndrome ?G89.4 - Chronic pain syndrome (ICD-10) Lumbar spondylosis ?M47.816 - Spondylosis without myelopathy or radiculopathy, lumbar region (ICD-10) Greater trochanteric bursitis of right hip ?M70.61 - Trochanteric bursitis, right hip (ICD-10) Thoracic stenosis ?M48.04 - Spinal stenosis, thoracic region (ICD-10) Chronic bilateral low back pain ?M54.50 - Low back pain, unspecified (ICD-10) ?G89.29 - Other chronic pain (ICD-10) Sacroiliitis ?M46.1 - Sacroiliitis, not elsewhere classified (ICD-10) Sacroiliac joint dysfunction ?M53.3 - Sacrococcygeal disorders, not elsewhere classified (ICD-10) Lumbar stenosis with neurogenic claudication ?M48.062 - Spinal stenosis, lumbar region with neurogenic claudication (ICD-10) Neck pain ?M54.2 - Cervicalgia (ICD-10) Shoulder pain ?M25.519 - Pain in unspecified shoulder (ICD-10) Arthritis ?M19.90 - Unspecified osteoarthritis, unspecified site (ICD-10) Back pain ?M54.9 - Dorsalgia, unspecified (ICD-10) Dyspnea on exertion ?R06.09 - Other forms of dyspnea (ICD-10) Hypothyroidism ?E03.9 - Hypothyroidism, unspecified (ICD-10) Thyroid disease ?E07.9 - Disorder of thyroid, unspecified (ICD-10) Pseudotumor cerebri ?G93.2 - Benign intracranial hypertension (ICD-10) PTSD (post-traumatic stress disorder) ?F43.10 - Post-traumatic stress disorder, unspecified (ICD-10) Chronic fatigue syndrome ?G93.32 - Myalgic encephalomyelitis/chronic fatigue syndrome (ICD-10) Depression ?F32.A - Depression, unspecified (ICD-10) Anxiety ?F41.9 - Anxiety disorder, unspecified (ICD-10) HTN (hypertension) ?I10 - Essential (primary) hypertension (ICD-10) Palpitations ?R00.2 - Palpitations (ICD-10) Osteoarthritis ?M19.90 - Unspecified osteoarthritis, unspecified site (ICD-10) Fibromyalgia ?M79.7 - Fibromyalgia (ICD-10) IBS (irritable bowel syndrome) ?K58.9 - Irritable bowel syndrome without diarrhea (ICD-10) Constipation ?K59.00 - Constipation, unspecified (ICD-10) Surgical History S/P insertion of spinal cord stimulator (07/23/24) ?Z96.89 - Presence of other specified functional implants (ICD-10) S/P epidural steroid injection ?Z92.241 - Personal history of systemic steroid therapy (ICD-10) History of radiofrequency ablation (RFA) of nerve of lumbar spine ?Z98.890 - Other specified postprocedural states (ICD-10) History of colonoscopy ?Z98.890 - Other specified postprocedural states (ICD-10) History of breast biopsy ?Z98.890 - Other specified postprocedural states (ICD-10) H/O section ?Z98.891 - History of uterine scar from previous surgery (ICD-10) History of hysterectomy ?Z90.710 - Acquired absence of both cervix and uterus (ICD-10) History of thyroidectomy ?E89.0 - Postprocedural hypothyroidism (ICD-10) Family History Other Family history of cancer Family history of diabetes mellitus Family history of heart disease Family history of hypertension Family history of myocardial infarction Family history of stroke Kidney disease Social History Within the past year, how often did you have a drink containing alcohol: never Score interpretation: A score less than 3 is consistent with normal alcohol consumption. Smoking status: Former smoker Do you use any of these nicotine containing products: vaping products Non-prescribed substance use: denies use Highest level of school completed/degree received: high school graduate Meds Home Medications and Allergies Home Medications ?Medication ?Instructions ?Recorded ?Confirmed ?Type cholecalciferol (vitamin D3) 50 50 mcg PO DAILY 12/30/22 05/13/25 History mcg (2,000 unit) capsule (Vitamin D3) liothyronine 5 mcg tablet 5 mcg PO DAILY 12/30/22 05/13/25 History lubiprostone 24 mcg capsule 24 mcg PO DAILY PRN IBS -C 12/30/22 05/13/25 History magnesium oxide 400 mg (241.3 mg 400 mg PO DAILY 12/30/22 05/13/25 History magnesium) tablet melatonin 10 mg tablet 10 mg PO DAILY 12/30/22 05/13/25 History multivitamin (Daily Multi-Vitamin 1 tab PO DAILY 12/30/22 05/13/25 History tablet) Lactobacillus acidophilus 10 100 mmu cells PO DAILY 08/03/23 05/13/25 History billion cell capsule (Probiotic) escitalopram oxalate 20 mg tablet 20 mg PO DAILY 08/03/23 05/13/25 History (Lexapro) ferrous sulfate 325 mg (65 mg 325 mg PO DAILY 08/03/23 05/13/25 History iron) tablet (Feosol) propranolol 20 mg tablet 20 mg PO BID 08/03/23 05/13/25 History calcium 500 mg (as 1 tab PO DAILY 07/13/24 05/13/25 History carbonate)-vitamin D3 5 mcg (200 unit) tablet (Oyster Shell Calcium-Vitamin D3) collagen capsule PO 07/13/24 History vit B complex-folic acid 400 1 cap PO DAILY 07/13/24 05/13/25 History mcg-choline 20 mg-inositol 50 mg capsule (Super B-50 Complex) levothyroxine 125 mcg tablet 125 mcg PO DAILY 11/27/24 05/13/25 History potassium chloride 10 mEq 10 meq PO BID 11/27/24 05/13/25 History tablet,extended release(part/cryst) losartan 100 tab 12/17/24 History mg-hydrochlorothiazide 12.5 mg tablet tizanidine 4 mg tablet See Rx Instructions .Route 05/29/25 Rx .COMPLEX PRN muscle spasticity #60 tabs Allergies Allergy/AdvReac Type Severity Reaction Status Date / Time No Known Drug Allergies Allergy Verified 05/13/25 10:59 Exam Constitutional Documenting provider has reviewed patient's vital signs: yes Common normals: no apparent distress, oriented x3 and alert General appearance: cooperative HENMT Common normals: normocephalic, hearing grossly normal bilaterally and moist oral mucous membranes Head and scalp: normocephalic Eye Common normals: PERRL Pupil: PERRL Neck & C-Spine Cervical spine: pain with cervical ROM Other: sensation intact BUE Chest Common normals: inspection of chest normal Respiratory Common normals: normal respiratory effort, no retractions and no use of accessory muscles Extremity Right upper extremity: shoulder joint Other: right shoulder increased pain with overhead ROM, crossbody adduction. pain with posterior lift-off, positive apleys scratch test. Neuro Common normals: oriented x3 Sensorium/orientation: alert Psych Common normals: mental status grossly normal, thought process normal, cooperative, affect normal, speech normal and activity/motor behavior normal Speech: normal speech Thought process: normal thought process Results Additional Findings Additional findings: If on a controlled substance or opioids, I have checked an [place] report on this patient and there are no aberrancies noted in the prescribing history.??If on a controlled substance or opioid a drug screen was completed and reviewed within the last year, and if there has not been a drug screen completed we ordered one today to monitor higher risk, state monitored pain medication use. As part of providing excellent, safe, comprehensive care, the following was completed at our patient's visit: 1. A medication reconciliation and review to ensure accurate knowledge of current/active medications, including asking our patients to inform us about any iefa-sdw-vdokjzl medications or herbal remedies/nutritional supplements/alternative remedies. 2. A review to specifically ensure our patients have had annual screening for screening for depression, screening for tobacco use, and screening for unhealthy alcohol use. For concerning screenings had a discussion with the patient, provided patient education, and recommended follow-up with primary care provider when appropriate. If patient noted with a risk of falling, they received education on strength, gait, and balance training to prevent future risk of falling. Portions of this note may have been carried over from the previous visit and updated as appropriate. Please note this office utilizes paper charting in addition to the electronic medical record. A list of current medications, vitals, and PMH is available there as the clinical staff outside of myself do not have access to [employer] charting during the clinic day operations. As part of providing quality comprehensive care the current medications, vitals, and PMH were reviewed in the paper chart. Assessment and Plan Assessment and Plan (1) Right shoulder pain: Qualifiers: Chronicity: chronic Qualified Code(s): M25.511 - Pain in right shoulder; G89.29 - Other chronic pain (2) Tendinopathy of right rotator cuff: (3) Subdeltoid bursitis of right shoulder joint: (4) Myofascial pain: Plan The patient has had over 3 months of moderate to severe right shoulder pain with functional impairment and inadequate response to conservative care including NSAIDS (unless there are contraindication such as concurrent blood thinners), multiple oral or topical pain medications, and home exercise program/physical therapy.? Patient has completed >6 weeks of guided home exercise program and/or formal physical therapy program without relief of their symptoms.? The Oswestry Disability Index was completed, and the patient scored a 44%.? proceed with right suprascapular/axillary RFA for chronic right shoulder pain start tizanidine 2-4mg bid prn pain/spasms f/u 1 month after RFA, as discussed can take up to 12 weeks to heal pt interested in further evaluation of bursitis of right shoulder, can refer to sports medicine for evaluation and continue with our plan of care. pt does have longstanding hx of subscapular/thoracic pain. previously pt reported she was a surgical candidate for her right shoulder with prior orthopedics team but was not interested in surgical intervention
== END 2025-05-29 12:46 | disposition home or self-care (01) ==
LOC: PM 12:45
PROVIDERS: Visit Provider Nurse Practitioner
DX: M25.511 Pain in right shoulder (principal); G89.29 Other chronic pain; M75.81 Other shoulder lesions, right shoulder; M75.51 Bursitis of right shoulder; M79.18 Myalgia, other site
CPT/HCPCS: G0463